=== PATIENT | female | born 1950 | race Caucasian/White ===

== ENCOUNTER 2023-03-24 08:05 | Outpatient (OUT) | payer MEDICARE, BC, SELFPAY ==
--- NOTE | 2023-03-24 08:06 | VEIN_ITS ---
Patient Name: GEOVANNY CORCORAN MR#: [id number] : 1950 Exam Date: 03/24/2023 Ordering Doctor: DR VINNIE CASTRO D.P.M. RADIOLOGY REPORT PROCEDURE: [facility] - OFFICE VISIT INITIAL COMPARISON: None. PROGRESS NOTES: 72-year-old female who presents with a multi decade history of lower extremity pain swelling and varicose veins. The patient complains of bilaterally symmetric pain described as aching heaviness and dullness rated as a 5 on a scale of 1-10. Patient's symptoms are exacerbated by prolonged standing required of her job at [employer]. Patient's symptoms are partially relieved by rest, leg elevation, support stockings and over the counter medication. Patient's symptoms culminated in a venous stasis ulceration of the left leg which has taken approximately 1 year to heal, the patient was referred by Dr. Castro from the wound clinic where she has been treated for the wound. The patient does have symptoms of arterial ischemia with difficulty exercising. The patient has had left leg artherectomy to [place] which was unsuccessful and has had lower extremity arterial bypass surgery recommended. The patient describes a family history significant for type 2 diabetes in her mother. Heart disease in her father. Occasional social alcohol use. The patient has never smoked. No illicit drug use. . Thirteen grandchildren. Past medical history significant for type 2 diabetes, heart disease and hypertension resulting in stage III renal disease and diffuse atherosclerosis. Patient has had an episode of left leg superficial vein thrombosis but could provide no additional details. No history of pulmonary embolus . See separate history and physical for medication list. The patient has worn compression stockings for many years. Nursing notes were reviewed. After history and physical exam I discussed at length the pathophysiology of venous hypertension and possible treatments, therapies and strategies available. We discussed at length the importance of elevating the lower extremities above the level of the heart, increased physical activity and compression stocking use. We discussed alternatives including conservative treatment with bilateral knee or thigh-high compression stockings, surgical interventions including ligation, stripping and phlebectomy. We discussed intravenous laser ablation, micro foam chemical ablation and injection sclerotherapy at length. Risks benefits and alternatives were discussed with the patient's questions were answered. Ultrasound venous reflux study performed the same day was discussed at length with the patient. The report demonstrates moderate to severe bilateral great saphenous vein venous insufficiency with dilatation and saphenofemoral junction reflux. Bilateral incompetent perforating veins. Extensive bilateral incompetent varicose veins. There was superficial thrombus identified in the proximal to mid left great saphenous vein PHYSICAL EXAM: The right leg demonstrates extensive varicose, reticular and spider veins. Hemosiderin staining. Subcutaneous edema. No active ulceration. The left leg demonstrates extensive varicose, reticular and spider veins. Moderate hemosiderin staining. Mild subcutaneous edema. Healing distal left lower leg/ankle venous stasis ulceration and skin thickening. There is an eschar measuring approximately 2 cm in diameter. Both thighs, legs and feet were symmetrically warm to the touch. The patient had poor posterior tibial and dorsalis pedis pulses bilaterally likely related to her significant arterial disease. VEIN/VC Facility NEW Comprehensive IMPRESSION: 1. Bilateral great saphenous vein venous insufficiency with dilatation saphenofemoral junction reflux. Incompetent perforating vein 2. Moderate bilateral lower extremity incompetent varicose veins 3. Mild bilateral lower extremity subcutaneous edema 4. Likely bilateral flow significant arterial disease 5. CEAP: C6, Ep, Asp, Pro PLAN: 1. Endovenous laser ablation right great saphenous vein followed by left great saphenous vein followed by left incompetent perforating vein with associated venous stasis ulceration 2. Micro foam chemical ablation bilateral incompetent varicose veins 3. Injection sclerotherapy bilateral reticular and spider veins 4. Long-term use bilateral knee or thigh-high 20-30 mm compression stockings 5. Elevated legs and increased physical activity for symptomatic relief Nurse notes, history and physical were reviewed and confirmed, see attached forms. The nurse was present throughout the physical exam and consultation Dictated by: Gomez Sher MD on 03/24/2023 at 09:39 Approved by: Gomez Sher MD on 03/24/2023 at 09:46
--- NOTE | 2023-03-24 08:07 | VEIN_ITS ---
Patient Name: GEOVANNY CORCORAN MR#: [id number] : 1950 Exam Date: 03/24/2023 Ordering Doctor: DR VINNIE CASTRO D.P.M. RADIOLOGY REPORT PROCEDURE: VC EXT VENOUS REFLUX SHEILA LMTD COMPARISON: None. INDICATIONS: I83.813 Bilateral painful varicose veins TECHNIQUE: Duplex imaging of the lower extremity to assess the deep and superficial venous system for the presence of deep or superficial venous incompetence and to document the location and severity of disease. The study includes evaluation of the great saphenous vein (GSV), anterior accessory saphenous vein (AASV) and small saphenous vein (SSV). Patient scanned in reverse Trendelenburg and standing. FINDINGS: RIGHT LOWER EXTREMITY: Saphenofemoral Junction Reflux: Yes 6.9mm 3.2 sec GSV: Diam (mm) Reflux/ Time (sec) Proximal Thigh 6.5 Yes 1.8 Mid Thigh 7.9 Yes 4.0 Distal Thigh 7.2 Yes 3.6 Prox Calf 5.3 Yes 4.7 Mid Calf 5.2 Yes 0.8 Saphenopopliteal Junction Reflux: 2.6mm No SSV: Proximal Calf 2.0 N/A Mid Calf 2.9 No AASV: Thrombi: No acute or chronic thrombus visualized Compressibility: Normal Flow: Normal Preforator: Dist/med calf 6.5mm with 1.3s reflux. Prox/med calf 3.0mm with 0.7s reflux. Tech Note: Incompetent GSV. Patent varicose vein prox/med calf 5.7mm with 4.5s reflux. Patent varicose vein mid/med calf 5.9mm with 1.4s reflux. LEFT LOWER EXTREMITY: Saphenofemoral Junction Reflux: Yes 10.6 mm 3.0 sec GSV: Diam (mm) Reflux/Time (sec) Proximal Thigh clot No Mid Thigh clot Distal Thigh 7.2 Yes 2.8 Prox Calf 6.4 Yes 3.0 Mid Calf 4.9 Yes 1.4 Saphenopopliteal Junction Relux: 3.8 mm No SSV: Proximal Calf 2.6 No Mid Calf 3.0 No AASV: Not present Thrombi: Partial thrombus visualized in proximal and mid GSV. Compressibility: Normal Flow: Normal Manager Social Responsibility: Dist/med calf (area of previous wound) 3.1mm with 1.8s reflux. Tech Note: Incompetent GSV. Patent varicose vein mid/med calf 5.6mm with 1.7s reflux. Patent varicose vein prox/med calf 4.7mm with 1.3s reflux. Patent varicose vein dist/med thigh 6.5mm with 0s reflux. CONCLUSION: 1. Severe bilateral great saphenous vein venous insufficiency with saphenofemoral junction reflux and dilatation 2. Superficial vein thrombosis proximal to mid left great saphenous vein 3. Bilateral incompetent perforating veins with associated left calf ulceration 4. Bilateral incompetent varicose veins Dictated by: Gomez Sher MD on 03/24/2023 at 09:03 Approved by: Gomez Sher MD on 03/24/2023 at 09:07
== END 2023-03-24 08:06 | disposition home or self-care (01) ==
PROVIDERS: PCP Podiatrist Foot & Ankle Surgery; Visit Provider Podiatrist Foot & Ankle Surgery
DX: I83.813 Varicose veins of bilateral lower extremities with pain (principal)
CPT/HCPCS: 93970; G0463

== ENCOUNTER 2023-03-31 09:21 | Outpatient (OUT) | payer MEDICARE, BC, SELFPAY ==
--- NOTE | 2023-03-31 09:24 | VEIN_ITS ---
[address] [address] Patient Name: GEOVANNY CORCORAN MRN: [id number] date: 1950 Sex: F Assigned Patient Location: Current Patient Location: Accession/Order Number: [id number] Exam Date: 03/31/2023 09:27 Report Date: 03/31/2023 10:19 At the request of: AILIN JC Procedure: VC Endovenous Ablation 1VeinRT EXAMINATION: VC Endovenous Ablation 1Vein right great saphenous vein HISTORY: I83.813 Bilateral painful varicose veins COMPARISON: No relevant comparison available. TECHNIQUE: The risks and benefits of the procedure had been previously discussed, and were rediscussed at length. Informed written consent was obtained. Zarina Mcmillan and Ottoniel Mariscal assisted. Time out procedure was performed. The right lower extremity was prepared and draped in the usual sterile fashion to allow knee flexion in the sterile field. Duplex ultrasound probe was draped in a sterile cover, sterile transmission gel was used. Venous mapping was performed with the areas of dilation and large tributaries marked. The total length was 35 cm from the entry upper calf to 3 cm below the saphenofemoral junction. The diameter of the greater saphenous vein ranged from 6-8 mm. A 30 gauge needle and 1% buffered lidocaine was used to anesthetize the entry site. A 4 mm incision was made with a scalpel and the saphenous vein was entered percutaneously under direct ultrasound guidance with a micropuncture set, a single stick was successful in gaining access. A micro-guide wire was inserted and the needle removed. A micro-set including a dilator was inserted over the microwire and the needle and dilator were removed. A 0.018 guide wire was inserted through the micro-set and threaded through the saphenous vein to the saphenofemoral junction. The dilator was removed and an introducer sheath was inserted over the wire until the end of the sheath entered the saphenofemoral junction. The dilator and wire were removed and the 600 micron fiber was introduced and placed and positioned so that it extended beyond the sheath and was 3 cm peripheral to the saphenofemoral femoral junction. Final position of the fiber was determined by ultrasound guidance and duplex imaging. Tumescent anesthetic was delivered by ultrasound guidance. 250 cc of fluid was delivered along the entire course of the saphenous vein. The solution consisted of 1000 cc of normal saline with 40 mL of 1% lidocaine and 20 mL of sodium bicarbonate. A final positioning check was made. The energy source was turned on by means of the foot pedal and the fiber and sheath were withdrawn. The total number of Joules delivered was 2060. The laser was active for 258 seconds under continuous pulse, average laser use of 8 J. Laser start time 10:08 AM 03/31/23. Laser stop time 10:12 AM 03/31/23. A duplex ultrasound revealed compressibility and flow at the saphenofemoral junction immediately after the procedure. Hemostasis at the access site was achieved. The skin incision of the saphenous vein was closed with a 4 x 4. A compression stocking was applied. Postop instructions were given. A follow up appointment was recommended and scheduled. The patient tolerated the procedure well and was discharged in good condition . VEIN/VC Endovenous Ablation 1VeinRT IMPRESSION: Technically successful endovenous laser ablation of the right great saphenous vein Electronically authenticated by: AILIN JC Date: 03/31/2023 10:19
--- OUTSIDE RECORDS SUMMARY | 2023-03-31 09:31 | XMS_ITS | CCD ---
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 Fariha Norwood Attending Carolina vailable Jairo, Dr. Fariha Norwood Referring Carolina vailable Christopher Wells Primary Care Unavailable Christopher Wells Primary Care Unavailable Guidry, Dr. Fariha Norwood Attending Carolina vailable Guidry, Dr. Fariha Norwood Referring Carolina vailable Christopher Wells Primary Care Unavailable Guidry, Dr. Fariha Norwood Attending Carolina vailable Jairo, Dr. Fariha Norwood Referring Carolina vailable Miguel Membreno Unavailable DO Christopher Wells Primary Care Provider MD Miguel Membreno Attending Provider Renetta Barahona Unavailable Dr. Christopher Wells Primary Care Unavailable Jairo, Dr. Fariha Norwood Attending Carolina vailable DO Christopher Wells Primary Care Provider MD Miguel Membreno Attending Provider [phone] [facility] [place] Attending Provider Christopher Wells DO Primary Care Provider FARIHA GUIDRY Attending Unavailable CHRISTOPHER WELLS Primary Care Unavailable DO Christopher Wells Primary Care Provider MD Miguel Membreno Attending Provider Christopher Wells Primary Care Unavailable Renetta Barahona Attending Unavailable AdiliatinRenetta torres Admitting Unavailable Kapjanna, Christopher Montenegro Primary Care Unavailable Buehrer, Miguel Admitting Unavailable Buehrer, Miguel Attending Unavailable Buehrer, Miguel Attending Unavailable Buehrer, Miguel Admitting Unavailable Kaple, Christopher A Primary Care Unavailable Buehrer, Miguel Attending Unavailable Buehrer, Miguel Admitting Unavailable Kaple, Christopher Monten[place]ro Primary Care Unavailable Buehrer, Miguel Attending Unavailable Buehrer, Miguel Admitting Unavailable Kaple, Christopher Montenegro Primary Care Unavailable DOLCE, DENTON Gomez Attending Unavailable DOLCE, DENTON Gomez Attending Unavailable KAPLE, Christopher Montenegro Attending Unavailable KAPLE, Christopher Montenegro Attending Unavailable Dolce, Denton Gomez Attending Unavailable Dolce, Denton Gomez Attending Unavailable Dolce, Denton Gomez Attending Unavailable Dolce, Denton Gomez Attending Unavailable Dolce, Denton Gomez Attending Unavailable Dolce, Denton Gomez Attending Unavailable SALAM, Luis Attending Unavailable SALAM, Luis Admitting Unavailable SALAM, Luis Referring Unavailable Dolce, Denton Gomez Attending Unavailable Dolce, Denton Gomez Referring Unavailable Mara Pastor Attending Unavailable TAB Pastor Mara Admitting Unavailabl e Christopher WELLS Referring Unavailable KAPLE, Christopher Montenegor Admitting Unavailable Osmin, Linda A Attending Unavailable Osmin, Linda A Attending Unavailable KAPLE, Christopher Montenegro Referring Unavailable Osmin, Linda A Attending Unavailable Osmin, Linda Monten[place]ro Attending Unavailable Dolce, Denton Gomez Attending Unavailable Dolce, Denton Gomez Admitting Unavailable Osmin, Linda A Admitting Unavailable Osmin, Linda A Attending Unavailable Guidry, Fried Attending Unavailable Guidry, Fried Admitting Unavailable Akkina, Klaus Attending Unavailable Jakekina, Klaus Admitting Unavailable MD Gary Cerda Admitting Unavailable Gary Cerda Attending Unavailable Filley, Catrachito Jason Referring Unavailable Filley, Catrachito Jason Referring Unavailable Filley, Catrachito Gomez Attending Unavailable Filley, Catrachito D Admitting Unavailable KAPLE, Christopher A Attending Unavailable KAPLE, Christopher A Admitting Unavailable KAPLE, Christopher A Referring Unavailable Akkina, Klaus Attending Unavailable Akkina, Klaus Admitting Unavailable Osmin, Linda A Attending Unavailable Linda Solorio Admitting Unavailable MD Gary Cerda Admitting Unavailable Gary Cerda Referring Unavailable Gary Cerda Attending Unavailable DO Nicola Tapia Admitting Unavailmarcelle e Nicola Tapia Referring Unavailable Nicola Tapia Attending Unavailable Catrachito Wolf Referring Unavailable Catrachito Wolf Attending Unavailable Catrachito Wolf Admitting Unavailable Christopher WELLS Attending Unavailable Christopher WELLS Attending Unavailable Christopher WELLS Attending Unavailable Christopher WELLS Attending Unavailable Allergies Allergy Classification Reported Allergen(s) Allergy Type Date of Onset Reaction(s) Facility (20 sources) Doxazosin; Translations: [Cardura] Drug Allergy 023 Unknown (qualifier value), Diarrhea [facility] 250 DO Work Phone: (20 sources) hydroCHLOROthiazide; Translations: [hydroCHLOROthiazide CAPS] Drug Allergy 023 Diarrhea [facility] 250 DO Work Phone: (20 sources) hydroCHLOROthiazide / Spironolactone; Translations: [Aldactazide] Drug Allergy 023 Weal (disorder), Diarrhea [facility] 250 DO Work Phone: (20 sources) Lisinopril; Translations: [Zestril] Drug Allergy 023 Diarrhea (finding), Diarrhea [facility] 250 DO Work Phone: (20 sources) metFORMIN; Translations: [Glucophage] Drug Allergy 023 Diarrhea [facility] 250 DO Work Phone: (20 sources) valsartan; Translations: [Diovan] Drug Allergy 023 Unknown (qualifier value), Diarrhea [facility] 250 DO Work Phone: (20 sources) hydroCHLOROthiazide / Lisinopril; Translations: [hydrochlorothiazide-l isinopril] Drug Allergy Diarrhea (finding) [facility] (20 sources) Terazosin; Translations: [terazosin] Drug Allergy Unknown, Unknown Reaction [facility] (9 sources) metFORMIN Drug Allergy Unknown [facility] Other (7 sources) Doxazosin; Translations: [DOXAZOSIN] Drug Allergy Unknown Reaction [facility] (6 sources) hydroCHLOROthiazide; Translations: [HYDROCHLOROTHIAZIDE] Drug Allergy Unknown Reaction, Diarrhea [facility] (6 sources) Lisinopril; Translations: [LISINOPRIL] Drug Allergy Unknown Reaction [facility] (6 sources) metFORMIN; Translations: [METFORMIN] Drug Allergy Unknown Reaction, Diarrhea [facility] (5 sources) pioglitazone; Translations: [pioglitazone] Drug Allergy Unknown Reaction [facility] (5 sources) Spironolactone; Translations: [spironolactone] Drug Allergy Unknown Reaction, Hives [facility] (6 sources) valsartan; Translations: [VALSARTAN] Drug Allergy Unknown Reaction [facility] (1 source) SPIRONOLACTON-HYDROCHL OROTHIAZ; Translations: [SPIRONOLACTON-HYDROCH LOROTHIAZ] Propensity to adverse reactions to drug (disorder) [address] [place] [address] Repository (1 source) Terazosin Drug Allergy 023 [facility] Repository (1 source) Lisinopril; Translations: [Prinivil] Drug Allergy [facility] Repository Medications Current Medications Medication Drug Class(es) Dates Sig (Normalized) Sig (Original) acetaminophen 325 mg / HYDROcodone bitartrate 5 mg oral tablet (11 sources) Opioid Agonist Start: 04-08-2022 take 1 tablet by mouth every six hours HYDROcodone-Aceta minophen 5-325 MG 1 tablet as needed Orally every 6 hrs for 3 days Mar, Active Start: 04-07-2022 End: 02-18-2023 take 1 tablet by mouth every four hours Hydrocodone-Acetaminophen Discontinued 1 TAB PO Q4H April 07, 2022 February 18, 2023 9:26am amLODIPine 5 mg oral tablet (20 sources) Dihydropyridine Calcium Channel Larisa Start: 05-08-2021 take 1 tablet by mouth once daily amLODIPine 5 mg Tab 5 mg = 1 tab(s), Oral, Daily, # 90 tab(s), Refills(s) 0, High blood pressure Start Date: 09/24/21 Status: Ordered amLODIPine Besyl ate Active Aspir-81 81 MG (9 sources) take 1 tablet by mouth once daily Aspir-81 81 MG 1 tablet Orally Once a day Active aspirin 81 mg oral tablet (20 sources) Platelet Aggregation Inhibitor, Nonsteroidal Anti-inflammatory Drug Start: 05-10-2021 take 81 mg by mouth once daily aspirin 81 mg, Oral, Daily, Refills(s) 0, Prophylaxis Start Date: 05/10/21 Status: Ordered Start: 08-06-2018 take 81 mg by mouth two times weekly Aspirin Active 81 MG PO Twice a Week August 05, 2018 11:00pm Takes on Thursday and take 1 tablet by damon two times weekly aspirin 81 mg EC tablet Take 1 tablet (81 mg) by mouth 2 times a week. 0 Active take 1 tablet by mouth once tangela y Aspirin 81 MG Oral Tablet Delayed Release TAKE 1 TABLET DAILY. Quantity: 90 Refills: 3 Ordered: 30-Jul-2022 Fariha Guidry MD Active atorvastatin 40 mg oral tablet (20 sources) HMG-CoA Reductase Inhibitor Start: 01-05-2023 End: 02-12-2024 atorvastatin 40 mg Tab Refills(s) 0 Start Date: 01/05/23 Status: Ordered Start: 10-28-2021 End: 10-23-2022 take 1 tablet by mouth once daily atorvastatin 40 mg Tab 40 mg = 1 tab(s), Oral, Daily, X 90 day(s), # 90 tab(s), Refills(s) 3, [facility]: [id number], 166, cm, 10/28/21 9:59:00 EDT, Height/Length Dosing, 97.4, kg, 10/28/21 9:59:00 EDT, Weight Dosing Start Date: 10/28/21 Stop Date: 10/23/22 Status: Ordered Start: 04-26-2015 End: 02-12-2023 take 20 mg by mouth once daily in the evening Atorvastatin Active 20 MG PO Every evening August 05, 2018 11:00pm Calcium Carbonate (3 sources) oscal 500 + D Ac tive calcium carbonate 1250 mg / cholecalciferol 0.01 mg oral tablet (12 sources) Vitamin D Start: 2022 take 1 tablet by mouth once daily calcium (as carbonate)-vitamin D 500 mg-400 intl units oral tablet 1 tab(s), Oral, Daily, Refill(s) 0 Start Date: 01/06/23 Status: Ordered chlorthalidone 25 mg oral tablet (20 sources) Thiazide-like Diuretic Start: 2018 take 1 tablet by mouth at bedtime chlorthalidone 25 mg Tab 25 mg = 1 tab(s), Oral, Bedtime, # 90 tab(s), Refills(s) 1, [facility]: [facility] #[id number], 165, cm, 09/10/22 8:16:00 EDT, Height/Length Dosing, 97.4, kg, 09/10/22 8:16:00 EDT, Weight Dosing Start Date: 10/27/22 Status: Ordered cilostazol 50 mg oral tablet (10 sources) Phosphodiesterase 3 Inhibitor Start: 2021 take 1 tablet by mouth twice daily Pletal 50 mg oral tablet 50 mg = 1 tab(s), Oral, BID, # 60 tab(s), Refills(s) 5, Pharmacy: [facility] #[id number], 165, cm, 09/24/21 8:39:00 EDT, Height/Length Dosing, 95.3, kg, 09/24/21 8:39:00 EDT, Weight Dosing Start Date: 10/08/21 Status: Ordered clopidogrel 75 mg oral tablet (1 source) P2Y12 Platelet Inhibitor Start: 2018 take 1 tablet by mouth once daily Plavix 75 mg Tab 75 mg = 1 tab(s), Oral, Daily, # 30 tab(s), Refills(s) 0 Start Date: 10/28/18 Status: Ordered Co Q 10 (9 sources) Co Q 10 Active Co Q-10 (20 sources) Start: 2019 take 1 mg by mouth once daily Co Q-10 mg, Oral, Daily, Refills(s) 0, Prophylaxis Start Date: 01/13/20 Status: Ordered Start: 01-13-2020 take 1 mg by mouth once daily Co Q-10 mg, Oral, Daily, Refills(s) 0 Start Date: 01/13/20 Status: Ordered doxycycline hyclate 100 mg oral capsule (12 sources) Tetracycline-class Drug Start: 12-18-2022 take 1 capsule by mouth twice daily doxycycline hyclate 100 mg Cap 100 mg = 1 cap(s), Oral, BID, # 20 cap(s), Refills(s) 1, [facility]: [facility] #[id number], 165, cm, 12/18/22 8:28:00 EDT, Height/Length Dosing, 98.5, kg, 12/18/22 8:28:00 EDT, Weight Dosing Start Date: 12/18/22 Status: Ordered empagliflozin 25 mg oral tablet (8 sources) Sodium-Glucose Cotransporter 2 Inhibitor take 1 tablet by mouth once daily Jardiance 25 MG take 1 tablet by mouth once daily Oral for 30 Days Active Glucometer (20 sources) Start: 05-10-2021 Glucometer Glucometer, See Instructions, 1 EA, 0, Dx: E11.9 Directions: Test BID, [facility], [place], 166, cm, 05/10/21 8:27:00 EST, Height/Length Dosing, 92.8, kg, 05/10/21 8:27:00 EST, Weight Dosing Start Date: 05/10/21 Status: Ordered 3 ml insulin degludec 100 unt/ml pen injector (20 sources) Insulin Analog Start: 08-22-2022 inject 50 [IU] by subcutaneous injection once daily Tresiba FlexTouch 100 units/mL subcutaneous solution 50 unit(s), SubCutaneous, Daily, Dx E11.65, # 5 EA, Refills(s) 11, [facility]acy: [facility] #[id number], 165, cm, 06/11/22 9:10:00 EDT, Height/Length Dosing, 97.6, kg, 06/11/22 9:10:00 EDT, Weight Dosing Start Date: 08/22/22 Status: Ordered Start: 08-22-2022 inject 30 [IU] by griffin bcutaneous injection twice daily Tresiba FlexTouch 100 units/mL subcutaneous solution 30 unit(s), SubCutaneous, BID, Dx E11.65, # 5 EA, Refills(s) 11, Pharmacy: [facility] #[id number], 165, cm, 06/11/22 9:10:00 EDT, Height/Length Dosing, 97.6, kg, 06/11/22 9:10:00 EDT, Weight Dosing Start Date: 08/22/22 Status: Ordered Start: 09-24-2021 inject 30 [IU] by griffin bcutaneous injection twice daily Tresiba FlexTouch 100 units/mL subcutaneous solution 30 unit(s), SubCutaneous, BID, Dx E11.65, # 5 EA, Refills(s) 11, Pharmacy: [facility] [facility], 165, cm, 09/24/21 8:39:00 EDT, Height/Length Dosing, 95.3, kg, 09/24/21 8:39:00 EDT, Weight Dosing Start Date: 09/24/21 Status: Ordered Start: 05-10-2021 inject 50 [IU] by griffin bcutaneous injection at bedtime Tresiba FlexTouch 100 units/mL subcutaneous solution 50 unit(s), SubCutaneous, Bedtime, Dx E11.65, # 5 EA, Refills(s) 11, Pharmacy: [facility], 166, cm, 05/10/21 8:27:00 EST, Height/Length Dosing, 92.8, kg, 05/10/21 8:27:00 EST, Weight Dosing Start Date: 05/10/21 Status: Ordered Start: 08-06-2018 inject 50 [IU] by griffin bcutaneous injection once daily in the evening Insulin Degludec Active 50 UNIT SUBCUT Every evening August 05, 2018 11:00pm Start: 08-06-2018 inject 40 [IU] by griffin bcutaneous injection once daily in the evening Insulin Degludec Active 40 UNIT SUBCUT Every evening August 06, 2018 12:00am Start: 08-06-2018 inject 40 [IU] by griffin bcutaneous injection once daily in the evening Insulin Degludec Active 40 UNIT SUBCUT Every evening August 05, 2018 11:00pm Start: 08-06-2018 inject 40 [IU] by griffin bcutaneous injection once daily in the evening Insulin Degludec Active 40 UNIT SUBCUT Every evening August 05, 2018 11:00pm Tresiba FlexTouc h 100 UNIT/ML Subcutaneous for 25 Days Active Insulin Degludec 100 UNIT/ML Subcutaneous Solution as directed Quantity: 0 Refills: 0 Ordered: 30-Jul-2022 DO Active Tresiba Active Tresiba SOLN USE DIRECTED Quantity: 0 Refills: 0 Ordered: 08-May-2021 DO Active 3 ml insulin lispro-aabc 100 unt/ml pen injector (20 sources) Insulin Analog Start: 01-05-2023 Lyumjev KwikPe n 100 units/mL injectable solution 10-12-15 units according to meal sizes, Refills(s) 0 Start Date: 01/05/23 Status: Ordered Lyumjev KwikPen 100 UNIT/ML inject 10-12-15 units subcutaneously ACCORDING TO MEAL SIZE PLUS ... (REFER TO PRESCRIPTION NOTES). Subcutaneous for 75 Days Active Lyumjev KwikPen U-100 Insulin 100 unit/mL insulin pen Inject under the skin. 0 Active Lyumjev KwikPen 100 UNIT/ML Subcutaneous Solution Pen-injector USE DIRECTED Quantity: 0 Refills: 0 Ordered: 15-Jan-2022 DO Active Insulin Lispro-Aabc (Lyumjev Kwikpen U-100 Insulin) 100 unit/mL insulin pen (1 source) Start: 02-18-2023 Insulin Lispro-Aabc (Lyumjev Kwikpen U-100 Insulin) 100 unit/mL insulin pen Active SUBCUT February 18, 2023 12:00am losartan potassium 50 mg oral tablet (20 sources) Angiotensin 2 Receptor Larisa Start: 08-06-2018 take 50 mg by mouth once daily in the evening Losartan Active 50 MG PO Every evening August 06, 2018 12:00am Start: 04-26-2015 take 1 tablet by damon th twice daily losartan 50 mg Tab 50 mg = 1 tab(s), Oral, BID, Refills(s) 0, High blood pressure Start Date: 04/26/15 Status: Ordered Lyumjev KwikPen (5 sources) Start: 05-05-2022 Lyumjev KwikPe n Refills(s) 0 Start Date: 05/05/22 Status: Ordered 24 hr metoprolol succinate 50 mg extended release oral tablet (20 sources) beta-Adrenergic Larisa Start: 04-07-2022 Metoprolol Succinate Active MG PO April 07, 2022 1:00am Start: 01-13-2020 take 1 mg by mouth once daily Metoprolol succinate 50 mg ER Tablet mg, Oral, Daily, Refills(s) 0 Start Date: 01/13/20 Status: Ordered Start: 01-13-2020 take 50 mg by mouth once daily Metoprolol Succinate Active 50 MG PO Daily April 07, 2022 12:00am Metoprolol Succi pina Active Multi Vitamins oral tablet (20 sources) Start: 11-05-2017 take 1 tablet by mouth at bedtime Multi Vitamins oral tablet 1 tab(s), Oral, Bedtime, Refill(s) 0, Prophylaxis Start Date: 11/05/17 Status: Ordered Start: 11-05-2017 take 1 tablet by mouth at bedt fátima Multi Vitamins oral tablet 1 tab(s), Oral, Bedtime, Refill(s) 0 Start Date: 11/05/17 Status: Ordered Multivitamin preparation (10 sources) Start: 02-18-2023 take 1 tablet by mouth once daily Multivitamin Active 1 TAB PO Daily February 18, 2023 12:00am Multivitamin Act kana multivitamin tablet (1 source) take 1 tablet by mouth once daily multivitamin tablet Take 1 tablet by mouth once daily. 0 Active nitroglycerin 0.4 mg sublingual tablet (20 sources) Nitrate Vasodilator Start: 8 NitroStat 0.4 mg Tab 0.4 mg = 1 tab(s), SubLingual, q5min, PRN Chest pain, # 25 tab(s), Refills(s) 3 Start Date: 04/11/17 Status: Ordered Nitrostat 0.4 MG Sublingual Active polyethylene glycol 3350 125990 mg / potassium chloride 1480 mg / sodium bicarbonate 5720 mg / sodium chloride 82351 mg powder for oral solution (1 source) Osmotic Laxative Start: 05-05-2022 NuLYTELY Sara ry oral powder for reconstitution See Instructions, 1 EA, Refill(s) 0, Prior to colonoscopy., [facility] #[id number], 165, cm, 05/05/22 13:40:00 EST, Height/Length Dosing, 95.2, kg, 05/05/22 13:40:00 EST, Weight Dosing Start Date: 05/05/22 Status: Ordered Potassimin (9 sources) Potassimin Activ e Psyllium (15 sources) Start: 11-06-2022 Metamucil Oral , Refills(s) 0 Start Date: 11/06/22 Status: Ordered Psyllium Husk (Metamucil) 0.4 gram Capsule (1 source) Start: 02-18-2023 Psyllium Husk (Metamucil) 0.4 gram Capsule Active 0.4 GM PO Daily February 18, 2023 12:00am rivaroxaban 10 mg oral tablet (20 sources) Factor Xa Inhibitor Start: 05-08-2021 End: 01-09-2024 take 1 mg by mouth once daily Xarelto 10 mg oral tablet mg tab(s), Oral, Daily, Refills(s) 0, Blood Thinner Start Date: 05/10/21 Status: Ordered Start: 08-06-2018 take 10 mg by mouth once daily Rivaroxaban Active 10 MG PO Every evening August 05, 2018 11:00pm Has been instructed by [facility] to stop 2 days before heart cath Start: 08-06-2018 take 20 mg by mouth once daily Rivaroxaban Active 20 MG PO Every evening August 06, 2018 12:00am Has been instructed by [facility] to stop 2 days before heart cath Xarelto 10 10mg PO Active Tylenol 8 HR Arthritis Pain (12 sources) Start: 01-06-2023 take 650 mg by mouth every eight hours as needed for pain Tylenol 8 HR Arthritis Pain 650 mg, Oral, q8hr, PRN as needed for pain, Refills(s) 0 Start Date: 01/06/23 Status: Ordered ubidecarenone 100 mg oral capsule (14 sources) Start: 01-19-2023 take 1 capsule by mouth twice daily coenzyme Q-10 100 mg capsule Indications: Mixed hyperlipidemia , Atherosclerosis of [place] coronary artery of [place] heart without angina pectoris TAKE 1 CAPSULE BY MOUTH TWICE A DAY 180 capsule 3 01/19/2023 Active Start: 04-07-2022 End: 02-18-2023 Coenzyme Q10 Discontinued PO Daily April 07, 2022 12:00am February 18, 2023 9:26am Start: 11-12-2021 take 1 capsule by [facility] twice daily CoQ10 100 MG Oral Capsule TAKE 1 CAPSULE BY MOUTH TWICE A DAY Quantity: 180 Refills: 3 Ordered: 12-Nov-2021 Fariha Guidry MD Start : 12-Nov-2021 Active Ubiquinone (1 source) Start: 02-18-2023 take 90 mg by mouth once daily Ubiquinone Active 90 MG PO Daily February 18, 2023 12:00am Completed/Discontinued Medications Medication Drug Class(es) Dates Sig (Normalized) Sig (Original) canagliflozin 300 mg oral tablet (4 sources) Sodium-Glucose Cotransporter 2 Inhibitor Start: 08-06-2018 End: 04-07-2022 take 300 mg by mouth once daily in the evening Canagliflozin Discontinued 300 MG PO Every evening August 05, 2018 11:00pm April 07, 2022 2:00pm Multi Vitamin TABS (1 source) Multi Vitamin TA BS TAKE 1 TABLET DAILY. Quantity: 0 Refills: 0 Ordered: 30-Jul-2022 DO Active nebivolol 5 mg oral tablet (4 sources) Start: 08-06-2018 End: 04-07-2022 take 5 mg by mouth once daily in the evening Nebivolol Discontinued 5 MG PO Every evening August 05, 2018 11:00pm April 07, 2022 1:59pm potassium chloride 10 meq extended release oral capsule (20 sources) Start: 04-17-2021 take 1 capsule by mouth once daily potassium chloride 10 mEq Cap-ER 10 mEq = 1 cap(s), Oral, Daily, # 90 cap(s), Refills(s) 3, [facility]: [facility] #[id number], 165, cm, 05/21/22 12:25:00 EST, Height/Length Dosing, 95.2, kg, 05/21/22 12:25:00 EST, Weight Dosing Start Date: 05/26/22 Status: Ordered Start: 04-17-2021 take 1 capsule by [facility] once daily potassium chloride 10 mEq Cap-ER 10 mEq = 1 cap(s), Oral, Daily, # 90 cap(s), Refills(s) 3, Pharmacy: [facility], 165, cm, 12/10/20 11:57:00 EDT, Height/Length Dosing, 87, kg, 12/10/20 11:57:00 EDT, Weight Dosing Start Date: 04/17/21 Status: Ordered Potassium Chlori de 10 MEQ TBCR TAKE 1 TABLET DAILY. Quantity: 0 Refills: 0 Ordered: 08-May-2021 DO Active SITagliptin 100 mg oral tablet (4 sources) Dipeptidyl Peptidase 4 Inhibitor Start: 08-06-2018 End: 04-07-2022 take 100 mg by mouth once daily in the evening Sitagliptin Phosphate Discontinued 100 MG PO Every evening August 05, 2018 11:00pm April 07, 2022 2:00pm ticagrelor 90 mg oral tablet (4 sources) Start: 08-11-2018 End: 02-18-2023 take 1 tablet by mouth twice daily Ticagrelor (Brilinta) 90 mg tablet Discontinued 90 MG PO Twice daily 180 90 August 10, 2018 11:00pm February 18, 2023 9:26am ubidecarenone 100 mg / vitamin e 5 unt oral capsule (3 sources) Start: 11-12-2021 take 1 capsule by mouth twice daily CoQ10 100 MG Oral Capsule TAKE 1 CAPSULE BY MOUTH TWICE A DAY Quantity: 180 Refills: 3 Ordered: 12-Nov-2021 Fariha Guidry MD Start : 12-Nov-2021 Active take 1 capsule by mouth once holly ly Co Q 10 100 MG Oral Capsule TAKE 1 CAPSULE Daily Quantity: 90 Refills: 3 Ordered: 30-Jul-2022 DO Active Problems Active Problems Problem Classification Problem Date Documented Date Episodic/Chronic Administrative/social admission (1 source) Counseling procedure with explicit context; Translations: [Dietary counseling and surveillance] Episodic Chronic kidney disease (20 sources) Chronic kidney disease stage 3; Translations: [Chronic kidney disease, Stage III (moderate)] Onset: 09-25-19 22 07-12-2020 Chronic Chronic kidney disease (2 sources) Chronic kidney disease; Translations: [Chronic kidney disease, stage 3 unspecified (CMS/HCC)] Onset: 01-10-20 Chronic ulcer of skin (1 source) Chronic ulcer of skin of lower leg; Translations: [Non-pressure chronic ulcer of unspecified part of left lower leg with unspecified severity] Onset: 10-29-19 Chronic Complications of surgical procedures or medical care (20 sources) Postgastric surgery syndrome 09-11-2020 Episodic Conditions associated with dizziness or vertigo (2 sources) Dizziness; Translations: [Dizziness and giddiness] Onset: 09-18-19 Episodic Coronary atherosclerosis and other heart disease (20 sources) Coronary atherosclerosis; Translations: [Coronary atherosclerosis of [place] coronary artery] Onset: 09-18-19 23 09-11-2020 Chronic Coronary atherosclerosis and other heart disease (16 sources) Past history of procedure; Translations: [Percutaneous transluminal coronary angioplasty status] Onset: 01-10-20 23 02-12-2023 Episodic Coronary atherosclerosis and other heart disease (3 sources) Coronary atherosclerosis and other heart disease; Translations: [Atherosclerosis of [place] arteries of left leg with ulceration of calf] Onset: 11-04-19 Diabetes mellitus with complications (3 sources) Type 2 diabetes mellitus with mild nonproliferative diabetic retinopathy without macular edema, bilateral; Translations: [Bilateral mild nonproliferative retinopathy due to diabetes mellitus type 2] Onset: 03-20-19 Chronic Diabetes mellitus without complication (20 sources) Diabetes mellitus; Translations: [Type 2 diabetes mellitus] Onset: 01-27-20 23 08-07-2021 Chronic Comment on above: noted in 08/21/2019 Diabetic Eye Exam. added per outpatient CDI policy. linked DM with hyper cholesterolemia per outpatient CDI policy. linked DM with CKD p er outpatient CDI policy. noted in 08/21/2019 Diabetic Eye Exam. added per outpatient CDI policy. linked DM with hyper cholesterolemia per outpatient CDI policy. linked DM with CKD p er outpatient CDI policy. 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; Translations: [Atherosclerosis of [place] arteries of extremities with gangrene, left leg] Onset: 10-29-19 Chronic Gastrointestinal hemorrhage (20 sources) Gastrointestinal hemorrhage; Translations: [Hemorrhage of rectum and anus] Onset: 06-12-19 23 05-05-2022 Episodic Hemorrhoids (20 sources) Complicated internal hemorrhoid; Translations: [Hemorrhoids] Onset: 06-12-19 23 01-13-2020 Episodic Hypertension with complications and secondary hypertension (13 sources) Hypertensive heart and chronic kidney disease 12-17-2022 Chronic Comment on above: noted in 12/10/2021 Nephrology Consult Note page 3. added per outpatient CDI policy. Immunizations and screening for infectious disease (1 source) Viral screening status; Translations: [Encounter for screening for other viral diseases] Onset: 01-27-20 Episodic Joint disorders and dislocations; trauma-related (15 sources) Acetabular labrum tear 11-06-2022 Chronic Menopausal disorders (15 sources) Primary ovarian failure 11-06-2022 Chronic Osteoarthritis (15 sources) Osteoarthritis of hip 11-06-2022 Chronic Other aftercare (12 sources) Drug therapy finding; Translations: [Long-term (current) use of other medications] Episodic Other aftercare (1 source) Other intermediate frame tender (current) drug therapy; Translations: [Other residential (current) drug therapy] Onset: 09-18-19 Episodic Other aftercare (1 source) Long-term current use of drug therapy; Translations: [Other residential (current) drug therapy] Onset: 01-27-20 Episodic Other aftercare (1 source) Long-term current use of anticoagulant; Translations: [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 of anticoagulants] Onset: 01-27-20 Episodic Other aftercare (2 sources) Long-term current use of insulin; Translations: [long-term (current) use of insulin] Onset: 01-27-20 Episodic Other and unspecified benign neoplasm (20 sources) History of polyp of colon; Translations: [Personal history of colonic polyps] Onset: 09-11-1901-13-2020 Episodic Other and unspecified benign neoplasm (20 sources) Polyp of colon; Translations: [Polyp of colon] Onset: 06-12-1901-13-2020 Episodic Other circulatory disease (1 source) Vascular disorder; Translations: [Unspecified circulatory system disorder] Episodic Other circulatory disease (1 source) Peripheral vascular angioplasty status; Translations: [Peripheral vascular angioplasty status] Onset: 09-18-19 Episodic Other connective tissue disease (15 sources) Enthesopathy of hip region 11-06-2022 Episodic Other connective tissue disease (1 source) Enthesopathy of lower leg and ankle region; Translations: [Other specified enthesopathies of left lower limb, excluding foot] Onset: 03-20-19 Episodic Other diseases of veins and lymphatics (13 sources) Stasis dermatitis and venous ulcer of left lower extremity due to chronic peripheral venous hypertension 12-18-2022 Chronic Comment on above: resolved per 023 Wound Progress Note page 3. Other gastrointestinal disorders (15 sources) Non-infective diarrhea 07-12-2020 Episodic Other gastrointestinal disorders (19 sources) Altered bowel function 05-05-2022 Episodic Other gastrointestinal disorders (19 sources) Diarrhea; Translations: [Diarrhea, unspecified] Onset: 06-12-19 Episodic Other nervous system disorders (1 source) Other acute postprocedural pain Episodic Other nutritional; endocrine; and metabolic disorders (12 sources) Obesity; Translations: [Obesity, unspecified] Chronic Other nutritional; endocrine; and metabolic disorders (20 sources) Body mass index 30+ - obesity 08-10-2020 Chronic Other nutritional; endocrine; and metabolic disorders (14 sources) Morbid obesity; Translations: [Morbid (severe) obesity due to excess calories] Onset: 03-20-1912-17-2022 Chronic Other nutritional; endocrine; and metabolic disorders (2 sources) Obese class II; Translations: [Body mass index (BMI) 37.0-37.9, adult] Onset: 01-27-20 Chronic Peripheral and visceral atherosclerosis (20 sources) Intermittent claudication; Translations: [Peripheral vascular disease] Onset: 10-29-1909-24-2021 Chronic Phlebitis; thrombophlebitis and thromboembolism (20 sources) Deep venous thrombosis; Translations: [Acute venous embolism and thrombosis of unspecified deep vessels of lower extremity] Onset: 01-10-2004-11-2017 Episodic Residual codes; unclassified (18 sources) Sleep apnea; Translations: [Unspecified sleep apnea] Onset: 01-10-2001-06-2023 Chronic Residual codes; unclassified (9 sources) Obstructive sleep apnea syndrome; Translations: [Obstructive sleep apnea (adult) (pediatric)] Chronic Residual codes; unclassified (9 sources) Dependence on enabling machine or device; Translations: [Dependence on other enabling machines and devices] Chronic Residual codes; unclassified (2 sources) Sleep apnea, unspecified; Translations: [Sleep apnea, unspecified] Onset: 01-10-20 Chronic Residual codes; unclassified (3 sources) Other specified postprocedural states Episodic Spondylosis; intervertebral disc disorders; other back problems (13 sources) Prolapsed lumbar intervertebral disc 12-18-2022 Chronic Spondylosis; intervertebral disc disorders; other back problems (13 sources) Spinal stenosis of lumbar region 12-18-2022 Episodic Unclassified (20 sources) Non-smoker 02-24-2020 Unclassified (14 sources) Patient encounter status 11-06-2022 Unclassified (13 sources) Long-term current use of insulin 12-17-2022 Comment on above: Current Medication L ist includes Tresiba. added per outpatient CDI policy. Varicose veins of lower extremity (11 sources) Varicose ulcer of lower extremity; Translations: [Varicose veins of left lower extremity with ulcer of unspecified site] Onset: 10-29-19 Episodic Past or Other Problems Problem Classification Problem Date Documented Da te Episodic/Chronic Other circulatory disease (12 sources) H/O: angina pectoris; Translations: [Personal history of other diseases of circulatory system] Resolved: 05-08-2021 Episodic Unclassified (12 sources) Never smoked tobacco; Translations: [Never a smoker] Unclassified (1 source) Onset: 02-12-2023 02-12-2023 Results Test Name Value Interpretation Reference Range Facil ity Consent for Treatmenton Consent for Treatment [id number]#1.00T IFF Normal [facility] Consultation Noteon 03-23-19 Consultation Note Patient: EVON CORCORAN Age: 72 years Sex: Female : 1950 Associated Diagnoses: None Author: Mara Pastor PA-C Subjective Chief complaint 03/23/2023 8:36 EST left hip pain . Patient is a 72-year-old female. She presents today for follow-up after undergoing a left intra-articular hip injection. This was done on 03/04/2023 and has given her 99% relief. She is feeling well. She is doing well. She is comfortable. She is happy. She does not have any pain. She does not have any complaints patient not have any concerns. At this time, she does not feel that she requires anything from our services. Health Status Allergies: Allergic Reactions (Selected) Severity Not Documented Aldactazide- Hives. Cardura- Unknown. Diovan- Unknown. Glucophage- No reactions were documented. Hydrochlorothiazide-lis inopril- Diarrhea. Hytrin- No reactions were documented. Prinivil- No reactions were documented. Zestril- Diarrhea., Allergies (8) Active Reaction Aldactazide Hives Cardura Unknown Diovan Unknown Glucophage None Documented hydrochlorothiazide-lis inopril Diarrhea Hytrin None Documented Prinivil None Documented Zestril Diarrhea Current medications: (Selected) Prescriptions Prescribed Glucometer: Glucometer, See Instructions, 1 EA, 0, Dx: E11.9 Directions: Test BID, [facility], Supply, 166, cm, 05/10/21 8:27:00 EST, Height/Length Dosing, 92.8, kg, 05/10/21 8:27:00 EST, Weight Dosing Lancets: Lancets, See Instructions, 100 EA, 11, Dx: E11.9 Directions: BID, [facility], Supply, 166, cm, 05/10/21 8:27:00 EST, Height/Length Dosing, 92.8, kg, 05/10/21 8:27:00 EST, Weight Dosing Test strips: Test strips, See Instructions, 100 EA, 11, Dx: E11.9 Directions: BID, [facility] #[id number], Supply, 165, cm, 06/11/22 9:10:00 EDT, Height/Length Dosing, 97.6, kg, 06/11/22 9:10:00 EDT, Weight Dosing Tresiba FlexTouch 100 units/mL subcutaneous solution: 50 unit(s), SubCutaneous, Daily, Dx E11.65, # 5 EA, Refills(s) 11, Pharmacy: [facility] #[id number], 165, cm, 06/11/22 9:10:00 EDT, Height/Length Dosing, 97.6, kg, 06/11/22 9:10:00 EDT, Weight Dosing chlorthalidone 25 mg Tab: 25 mg = 1 tab(s), Oral, Bedtime, # 90 tab(s), Refills(s) 1, Pharmacy: [facility] #[id number], 165, cm, 09/10/22 8:16:00 EDT, Height/Length Dosing, 97.4, kg, 09/10/22 8:16:00 EDT, Weight Dosing potassium chloride 10 mEq Cap-ER: 10 mEq = 1 cap(s), Oral, Daily, # 90 cap(s), Refills(s) 3, Pharmacy: [facility] #[id number], 165, cm, 05/21/22 12:25:00 EST, Height/Length Dosing, 95.2, kg, 05/21/22 12:25:00 EST, Weight Dosing Documented Medications Documented Co Q-10: mg, Oral, Daily, Refills(s) 0, Prophylaxis Lyumjev KwikPen 100 units/mL injectable solution: 10-12-15 units according to meal sizes, Refills(s) 0 Metamucil: Oral, Refills(s) 0 Metoprolol succinate 50 mg ER Tablet: mg, Oral, Daily, Refills(s) 0 Multi Vitamins oral tablet: 1 tab(s), Oral, Bedtime, Refill(s) 0, Prophylaxis NitroStat 0.4 mg Tab: 0.4 mg = 1 tab(s), SubLingual, q5min, PRN Chest pain, # 25 tab(s), Refills(s) 3 Tylenol 8 HR Arthritis Pain: 650 mg, Oral, q8hr, PRN as needed for pain, Refills(s) 0 Xarelto 10 mg oral tablet: mg tab(s), Oral, Daily, Refills(s) 0, Blood Thinner amLODIPine 5 mg Tab: 5 mg = 1 tab(s), Oral, Daily, # 90 tab(s), Refills(s) 0, High blood pressure aspirin: 81 mg, Oral, Daily, Refills(s) 0, Prophylaxis atorvastatin 40 mg Tab: Refills(s) 0 calcium (as carbonate)-vitamin D 500 mg-400 intl units oral tablet: 1 tab(s), Oral, Daily, Refill(s) 0 losartan 50 mg Tab: 50 mg = 1 tab(s), Oral, BID, Refills(s) 0, High blood pressure Problem list: All Problems HTN - Hypertension / SNOMED CT 9844647679 / Confirmed Familial hypercholesteremia / SNOMED CT 8178395386 / Confirmed Non-smoker / SNOMED CT 48855571 / Confirmed CAD in [place] artery / SNOMED CT 01400648 / Confirmed History of DVT in adulthood / SNOMED CT 5362706477 / Confirmed Type 2 diabetes mellitus with hypercholesterolemia / SNOMED CT 053114236 / Confirmed linked DM with hypercholesterolemia per outpatient CDI policy. Type 2 diabetes mellitus with stage 3 chronic kidney disease / SNOMED CT 442527310 / Confirmed linked DM with CKD per outpatient CDI policy. Mild nonproliferative diabetic retinopathy of both eyes / SNOMED CT 986073724 / Confirmed noted in 08/21/2019 Diabetic Eye Exam. added per outpatient CDI policy. 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 Normal [facility] Comment on above: Result Comment: Elec tronically Signed By: Dawit BARTH, Mara\.br\Date and Time Signed: 03/23/23 09:07 EST Legal Correspondence Officeo n 03-23-2023 Legal Correspondence Office [id number]#1.00 TIFF Normal [facility] Office/Clinic Note-Physician on 03-23-2023 Office/Clinic Note-Physician [id number]#1.00 TIFF Normal [facility] Patient Correspondenceon Patient Correspondence [id number]#1.00 TIFF Normal [facility] Patient Correspondence [id number]#1.00 TIFF Normal [facility] Patient Correspondence [id number]#1.00 TIFF Normal [facility] Patient Correspondence [id number]#1.00 TIFF Normal [facility] Patient History Officeon Patient History Office [id number]#1.00 TIFF [facility] Family Medicine Office/Clini c Noteon 03-20-2023 Family Medicine Office/Clinic Note Chief Complaint Patient here for 3 month f/u on htn, dm, chol, cad, ckd History of Present Illness Patient is here for follow-up on Diabetes. How often are you checking your blood sugars? _q day What are your average readings? _80-200 before injection steroid into hip: 100-500 Do you have low blood sugar readings/symptoms? _No Do you have high blood sugar readings/symptoms? No_ Are you compliant with your diet? For the most part _ Do you exercise? Yes Are you compliant with your medications or having difficulty affording your medications? yes and no issues Do you have any of the following symptoms? Vision problems? No Sexual dysfunction? No GI-Nausea/committing/bl oating? No Lightheadedness? No Paresthesias, Ulcerations or sores? No Here for follow up Have you had any ER visits or any hospitalizations since last visit? no Are you compliant with your medications and no difficulty affording your medications? yes Do you have side effects from the medication? no Are you compliant with your diet? yes Do you exercise? yes Do you have any of the following symptoms? Chest pain? no Palpitations? no DAILEY/SOB? no Orthopnea? no PND? no Edema? no Have you had any recent cardiopulmonary testing? no sugars higher with injection of steroid in hip Review of Systems PHQ Score Initial Depression Screen Score: 0 SCORE ROS - Provider Constitutional: no fever, no chills, no sweats, no weakness. Skin: no Jaundice, no rash, no lesions, no petechiae. ENMT: no ear pain, no sore throat, no congestion, no hoarseness. Respiratory: no shortness of breath, no cough, no orthopnea, no wheezing. Cardiovascular: no chest pain, no palpitations, no edema. Gastrointestinal: no nausea, no vomiting, no diarrhea, no GI bleeding.no constipationnoheartburn Genitourinary: no dysuria, no hematuria, no discharge, no pain.nofreq/urgency Musculoskeletal: no back pain, no trauma.nojoint pain Neurologic: no headache, no dizziness, no numbness, no weakness. Psychiatric: no sleeping problems, no irritability, no mood swings/depression. Heme/Lymph: no bleeding tendency, no bruising tendency, no petechiae, no swollen lymph nodes no Allergy/Imunology no seasonal allergies, no food allergies, no recurrent infections, no impaired immunity. Additional ROS info: Except as noted in the above Review of Systems and in the History of Present Illness all other systems have been reviewed and are negative or noncontributory. Physical Exam Vitals & Measurements T: 36.9 ?C(Oral) HR: 70(Peripheral) RR: 16 BP: 132/80 SpO2: 99% HT: 65 in HT: 165 cm WT: 97.6 kg WT: 214.72 lb BMI: 35.85 General: Well developed, well nourished, in no acute distress Mouth: Mucous membranes moist. Normal oropharynx, and posterior pharynx without lesions or exudates. Tongue normal Neck: Neck supple. No masses or palpable cervical nodes. Trachea midline. Thyroid without nodules, masses, tenderness, or enlargement Lungs: Normal respiratory effort and clear to auscultation Cardio: Regular rate and rhythm, normal S1 and S2, no murmur, no rub Abdomen: Soft, non-distended, non-tender. no G/R/S/Masses Musculoskeletal: No deformity or scoliosis noted. Normal range of motion. Joints normal. No erythema, edema, effusion, or ecchymosis Extremity: No clubbing, cyanosis, edema, or deformity, with normal ROM in both upper and lower bilateral extremities Neurologic: Grossly normal Skin: No rashes, ulcerations, or suspicious lesions Mental Status: Alert and oriented x3. Normal mood and affect Assessment/Plan 1. Claudication of both lower extremities (I73.9: Peripheral vascular disease, unspecified) Dr Collins following, 06/06 FU re: potential procedure: Clinically currently asymptomatic and ond-qsua-ccjklahbxag. Please see Dr. Castro's consultation 2. BMI 35.0-35.9,adult (Z68.35: Body mass index [BMI] 35.0-35.9, adult) The standard range for ages 18 and older is >=18.5 and < 25 kg/m2. Your BMI today was above this range, this falls in the overweight to obese category and there are medical benefits to weight loss. We can offer counselling, referral, and/or medical support in addressing this problem. Your BMI and weight management will be followed at subsequent visits. 3. Morbid obesity (E66.01: Morbid (severe) obesity due to excess calories) diet and exercise. 4. Long-term insulin use (Z79.4: long-term (current) use of insulin) Dr Benz following. 5. Mild nonproliferative diabetic retinopathy of both eyes (E11.3293: Type 2 diabetes mellitus with mild nonproliferative diabetic retinopathy without macular edema, bilateral) Follow-up with development officer 6. Type 2 diabetes mellitus with hypercholesterolemia (E11.69: Type 2 diabetes mellitus with other specified complication) Tresiba 50 units SQ every morning with sliding scale per med rec per Dr. Salter. Continue losartan: Sugars improved, surveillance A1c's per Dr. Ruggiero 7. Type 2 diabetes mellitus with stage (more content not included)... Normal [facility] Comment on above: Result Comment: Elec tronically Signed By: LIBAN SALGADO, Christopher Montenegro\.br\Date and Time Signed: 03/20/23 09:40 EST Patient Educationon 03-20-19 Patient Education Endocrinology Diabetes Mellitus and Exercise Exercising regularly is important for overall health, especially for people who have diabetes mellitus. Exercising is not only about losing weight. It has many other health benefits, such as increasing muscle strength and bone density and reducing body fat and stress. This leads to improved fitness, flexibility, and endurance, all of which result in better overall health. What are the benefits of exercise if I have diabetes? Exercise has many benefits for people with diabetes. They include: ? Helping to lower and control blood sugar (glucose). ? Helping the body to respond better to the hormone insulin by improving insulin sensitivity. ? Reducing how much insulin the body needs. ? Lowering the risk for heart disease by: ? Lowering bad cholesterol and triglyceride levels. ? Increasing good cholesterol levels. ? Lowering blood pressure. ? Lowering blood glucose levels. What is my activity plan? Your health care provider or certified low vision therapist can help you make a plan for the type and frequency of exercise that works for you. This is called your activity plan. Be sure to: ? Get at least 150 minutes of medium-intensity or high-intensity exercise each week. Exercises may include brisk walking, biking, or water aerobics. ? Do stretching and strengthening exercises, such as yoga or weight lifting, at least 2 times a week. ? Spread out your activity over at least 3 days of the week. ? Get some form of physical activity each day. ? Do not go more than 2 days in a row without some kind of physical activity. ? Avoid being inactive for more than 90 minutes at a time. Take frequent breaks to walk or stretch. ? Choose exercises or activities that you enjoy. Set realistic goals. ? Start slowly and gradually increase your exercise intensity over time. How do I manage my diabetes during exercise? Monitor your blood glucose ? Check your blood glucose before and after exercising. If your blood glucose is: ? 240 mg/dL (13.3 mmol/L) or higher before you exercise, check your urine for ketones. These are chemicals created by the liver. If you have ketones in your urine, do not exercise until your blood glucose returns to normal. ? 100 mg/dL (5.6 mmol/L) or lower, eat a snack containing 15?20 grams of carbohydrate. Check your blood glucose 15 minutes after the snack to make sure that your glucose level is above 100 mg/dL (5.6 mmol/L) before you start your exercise. ? Know the symptoms of low blood glucose (hypoglycemia) and how to treat it. Your risk for hypoglycemia increases during and after exercise. Follow these tips and your health care provider's instructions ? Keep a carbohydrate snack that is fast-acting for use before, during, and after exercise to help prevent or treat hypoglycemia. ? Avoid injecting insulin into areas of the body that are going to be exercised. For example, avoid injecting insulin into: ? Your arms, when you are about to play tennis. ? Your legs, when you are about to go jogging. ? Keep records of your exercise habits. Doing this can help you and your health care provider adjust your diabetes management plan as needed. Write down: ? Food that you eat before and after you exercise. ? Blood glucose levels before and after you exercise. ? The type and amount of exercise you have done. ? Work with your health care provider when you start a new exercise or activity. He or she may need to: ? Make sure that the activity is safe for you. ? Adjust your insulin, other medicines, and food that you eat. ? Drink plenty of water while you exercise. This prevents loss of water (dehydration) and problems caused by a lot of heat in the body (heat stroke). Where to find more information ? [place] [employer]: www.diabetes.org Summary ? Exercising regularly is important for overall health, especially for people who have diabetes mellitus. ? Exercising has many health benefits. It increases muscle strength and bone density and reduces body fat and stress. It also lowers and controls blood glucose. ? Your health care provider or certified low vision therapist can help you make an activity plan for the type and frequency of exercise that works for you. ? Work with your health care provider to make sure any new activity is safe for you. Also work with your health care provider to adjust your insulin, other medicines, and the food you eat. This information is not intended to replace advice given to you by your health care provider. Make sure you discuss any questions you have with your health care provider. Document Revised: 11/28/2019 Document Reviewed: 11/28/2019 [employer] Patient Education ? 2022 [employer]. Normal [facility] Nursing Note - Woundon 03-19 Nursing Note - Wound [id number]#2.[address] [facility] Consultation Noteon 03-07-20 23 Consultation Note [id number] IFF [facility] CHEMISTRYOrdered By: Lab ROP User on 03-04-2023 Glucose [Mass/Vol] 78 mg/dL Normal 55 - 99 mg/dL FT C POC Subsection POC Device SN [id number] Invalid Interpretation Code [facility] P[facility] Subsection POC Username MACIE POTTS Invalid Interpretation Code [facility] Subsection Sodium [Moles/Vol] [id number] mmol/L Invalid Interpretation Code [facility] Subsection Capillary Glucose POCon 02-14 Glucose [Mass/Vol] 78 mg/dL Normal 55-99 [facility] Comment on above: Performed By: #### 2 [id number] #### [facility] [address] [place] [address] Consent for Procedure/Surger yon 03-04-2023 Consent for Procedure/Surgery [id number]#1.00 TIFF Normal [facility] Consent for Treatmenton 02-14 Consent for Treatment [id number]#1.00T IFF Normal [facility] Discharge Instructionson Discharge Instructions [id number] TIFF [facility] [facility] Insurance Correspondenceon 05-05-2022 Insurance Correspondence [id number]#1.00 TIFF Normal [facility] IntraOperative Documentson 05-05-2022 IntraOperative Documents [id number]#1.[address] [facility] Main OR Intraoperative Recor don 03-04-2023 Main OR Intraoperative Record IntraOp Document Type FTPM Summary Primary Physician: Nicola Tapia DO Finalized Date/Time: 03/04/23 09:06:01 Pt. Name: NILOEVON/Sex: 1950 Female Med Rec #: [id number] Physician: Nicola Tapia DO Financial #: [id number] Pt. 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 - Primary Time In 03/04/23 09:01:00 03/04/23 09:01:00 03/04/23 09:01:00 Time Out 03/04/23 09:06:00 03/04/23 09:06:00 03/04/23 09:06:00 Procedure HIP INJECTION(Left) HIP INJECTION(Left) HIP INJECTION(Left) Comments Last Modified By: Estrellita Maria RN, RN, Estrellita Ryder RN 03/04/23 09:05:56 03/04/23 09:05:56 03/04/23 09:05:56 Entry 4 Case Attendee Ervin Mckeon Role Performed Video Editing Intern Time In 03/04/23 09:01:00 Time Out 03/04/23 09:06:00 Procedure HIP INJECTION(Left) Comments Last Modified By: Estrellita Maria RN 03/04/23 09:05:56 Perioperative Protocols FTPM Pre-Care Text: Implements protective measures prior to operative or invasive procedure, confirms identity before the operative or invasive procedure, verifies operative procedure, surgical site, and laterality Entry 1 Procedure(s) HIP INJECTION(Left) Patient Identity Birthday, ID Band Verified (select at Check, Patient least 2): Participation Consents / H and P HandP, Surgery/Procedure Operative Site Present Verified Consent Marking Verified Surgical Site Yes Laterality Verified Yes Verified Procedure Verified Yes Correct Patient Yes Position Verified Availability Equipment, Medication, Prep Dry Yes Verified (If X-ray Applicable) PreOp Antibiotic No Time Out Crow ECHAVARRIA, Estrellita Thompson, Madison Armstrong RN, Willie Padgett DO, Bradford A., Hargrove, Bryce Time Out Complete 03/04/23 09:01:00 Outcomes Met? Yes Last Modified By: Estrellita Maria RN 03/04/23 09:01:43 Post-Care Text: The patient is free from signs and symptoms of injury caused by extraneous objects Allergy Information FTPM Pre-Care Text: Verifies allergies Entry 1 Allergies Reviewed? Yes Allergies Reviewed Self/Patient With Outcomes Met? Yes Last Modified By: Estrellita Maria RN 03/04/23 09:01:51 Post-Care Text: The patient received appropriate medication(s) safely administered during the perioperative period Surgical Procedures FTPM Entry 1 Procedure Description Procedure HIP INJECTION Modifiers Left Surgeon Description HIP INJ W/ FLUORO Primary Procedure Yes Primary Surgeon Nicola Tapia DO Start 03/04/23 09:04:00 Stop 03/04/23 09:05:00 Anesthesia Type None Surgical Service Pain Management Wound Class 1 - Clean Last Modified By: Estrellita Maria RN 03/04/23 09:05:58 General Case Data FTPM Pre-Care Text: Classifies surgical wound, implements aseptic technique, initiates traffic control Entry 1 Case Information OR Pain Proc Room Case Level Level 2 Wound Class 1 - Clean Specialty Pain Management Preop Diagnosis M16.12 Postop Same As Preop Yes Postop Diagnosis M16.12 Outcomes Met? Yes Last Modified By: Estrellita Maria RN 03/04/23 09:02:00 Post-Care Text: The patient is free from signs and symptoms of infection Skin Assessment (Pre Procedure) FTPM Pre-Care Text: Implements protective measures to prevent skin/ tissue injury due to thermal or mechanical sources Evaluates for signs and symptoms of physical injury to skin and tissue Entry 1 Skin Integrity Intact, [place], Warm, and Skin Abnormality No Dry Outcomes Met? Yes Last Modified By: Estrellita Maria RN 03/04/23 09:02:36 Post-Care Text: The patient is free from signs and symptoms of injury caused by extraneous objects Patient Positioning FTPM Pre-Care Text: Identifies physical alterations that require additional precautions for procedure-specific positioning, verifies presence of prosthetics or corrective devices, positions the patient, evaluates the patient for signs and symptoms of injury as a result of positioning Entry 1 Procedure HIP INJECTION(Left) Body Position Prone Feet Uncrossed? Yes Left Arm Position Resting at Side Right Arm Position Resting at Side Left Leg Position Extended Right Leg Position Extended Positioning Device Pillow Under Head Large, Safety Strap, Pillow Large Under Knees Press Points Checked Yes By Estrellita Maria RN Outcomes Met? Yes Last Modified By: Estrellita Maria RN 03/04/23 09:02:42 Post-Care Text: The patient is free from signs and symptoms of injury related (more content not included)... Normal [facility] Main OR Preoperative Recordo n 03-04-2023 Main OR Preoperative Record Holding Area Document Type FTPM Summary Primary Physician: Nicola Tapia DO Finalized Date/Time: 03/04/23 08:19:34 Pt. Name: EVON CORCORAN/Sex: 1950 Female Med Rec #: [id number] Physician: Nicola Tapia DO Financial #: [id number] Pt. Type: P Room/Bed: / Admit/Disch: 03/04/23 07:48:24 - Institution: Case Times Holding FTPM Pre-Care Text: Verifies consent for planned procedure, identifies individual values and wishes concerning care, includes family members in perioperative teaching Secures patient's records' belongings, and valuables, maintains patient's dignity and privacy, and maintains patient confidentiality Entry 1 In Holding 03/04/23 08:17:00 Outcomes Met? Yes Last Modified By: Macie Potts RN 03/04/23 08:18:01 Post-Care Text: The patient participates in decisions affecting his or her perioperative plan of care The patient's right to privacy is maintained Surgery Checklist FTPM Entry 1 Patient Birthday, ID Band Procedure History and Physical, Identification: Check, Patient Verification: Surgical Consent, With Participation Patient NPO after Midnight: n/a Date/Time: 03/04/23 08:18:00 Results Reviewed brenda Personal Items: Dentures, Glasses, Comments: crackers Jewelry Personal Items apple watch and wedding Complaints of Pain: Yes Comment: band Pain Comment: 10/23 to left hip Operative Site Yes Marking: Marked By: operative site marked Location: Left hip by Dr. Tapia Availability X-Ray Verified: Does Patient Smoke No Patient states Yes Comment - Adult Antonio-spouse postop adult Supervision supervision available Case Cancelled in No Holding Area see comments below for reason Last Modified By: Macie Potts RN 03/04/23 08:19:29 Finalized By: Macie Potts RN Document Signatures Signed By: Macie Potts RN 03/04/23 08:[address] [facility] Consent for Treatmenton 02-13 Consent for Treatment [id number]#1.00T IFF Normal [facility] Multi-Wound Charton 03-03-20 Multi-Wound Chart [id number]#1.00 TIFF Normal [facility] Nursing Assessment - Woundon 12-19-2023 Nursing Assessment - Wound [id number]#1.[address] [facility] Physician Orderon 03-03-2023 Physician Order [id number]#1.[address] [facility] Progress Note - Woundon 02-13 Progress Note - Wound [id number]#1.[address] [facility] Correspondence - Woundon Correspondence - Wound [id number]#1.[address] [facility] Consent for Procedure/Surger yon 02-24-2023 Consent for Procedure/Surgery [id number]#1.[address] [facility] Consent for Treatmenton 02-13 Consent for Treatment [id number]#1.00T IFF [facility] Multi-Wound Charton 02-25-20 Multi-Wound Chart [id number]#1.[address] [facility] Nursing Assessment - Woundon 02-24-2023 Nursing Assessment - Wound [id number]#1.[address] [facility] Nursing Note - Woundon 02-24 Nursing Note - Wound [id number]#1.[address] [facility] Physician Orderon 02-24-2023 Physician Order [id number]#1.[address] [facility] Procedure - Woundon 02-25-20 Procedure - Wound [id number]#1.[address] [facility] Progress Note - Woundon 02-13 Progress Note - Wound [id number]#1.00 TIFF Normal [facility] Retail - Clinical Noteon Retail - Clinical Note [id number]#1.00T IFF Normal [facility] US venous mapping BI loweron 02-19-2023 US venous mapping BI [facility] [place] [address] Ultrasound Report Signed Patient: Evon Corcoran MR#: [id number] : 1950 Acct:[id number] Age/Sex: 72 / F ADM Date: 02/18/23 Loc: Room: Type: [facility] Attending Dr: Miguel Membreno MD Ordering Provider: Miguel Membreno MD Date of Service: 02/18/23 US/US venous mapping BI lower: pad w need for bypass Copies to: Miguel Membreno MD Bilateral lower extremity vein mapping examination Indication for study: Peripheral vascular disease with need for bypass PROCEDURE: Color-flow duplex scanning is used to interrogate the superficial venous anatomy of both lower extremities. In the right leg there is a 5 to 6 mm diameter greater saphenous vein but in the mid segment there is some thrombus. There is also some intraluminal shadowing suggestive of prior thrombophlebitis. Lesser saphenous vein is not usable in the right leg. In the patient's left leg the entire length the greater saphenous vein is diseased with some thrombophlebitis and occlusion. Lesser saphenous vein is also not a good conduit. US/US venous mapping BI lower IMPRESSION: This patient does not have good conduit in either lower extremity for autologous bypass Impression dictated by: Miguel Membreno M.D.02/19/2023 1:30 PM [facility] Tech: Isabell Duarte Transcribed By: RICH 02/19/23 1330 Dictated By: Miguel Membreno MD 02/19/23 1327 Signed By: 02/19/23 1330 [facility] Blood Urea Nitrogenon 2022 Urea nitrogen [Mass/Vol] 25 mg/dL Normal 7-25 [facility] Comment on above: Performed By: #### C REAT, BUN #### [facility] [address] Creatinineon 02-18-2023 Creatinine [Mass/Vol] 1.18 mg/dL Normal 0.60-1.20 [facility] Comment on above: Performed By: #### C REAT, BUN #### [facility] [address] [place] [address] [place] Creatinine Clr Calc Pharmacy 49.07 [facility] Comment on above: Result Comment: PERF ORMED BY: [place] [address] PATHOLOGIST WILLOW WORKER AIRAM ROMEO M.D. Performed By: #### C REMAY BUN #### [facility] [address] [place] [address] GFR/1.73 sq M.predicted MDRD (S/P/Bld) [Vol rate/Area] 48.770 mL/min/{1.73_m2} Normal [facility] Comment on above: Performed By: #### C REMAY, BUN #### [facility] [address] [place] [address] Creatinine [Mass/volume] in Serum or PlasmaOrdered By: Miguel Membreno on 02-18-2023 Creatinine [Mass/Vol] 1.18 mg/dL 0.60-1.20 [facility] Lab Reportson 02-18-2023 Lab Reports [id number]#1.00T IFF Normal [facility] No Panel InformationOrdered By: Miguel Membreno on 02-18-2023 Estimated GFR (CKD-EPI) 48.770 mL/Min [facility] Creatinine Clearance (Chem 49.07 [facility] Operative Reporton Operative Report [id number]#1.00T IFF Normal [facility] Retail - Clinical Noteon Retail - Clinical Note [id number]#1.00T IFF Normal [facility] Retail - Clinical Note [id number]#1.00T IFF [facility] Urea nitrogen [Mass/volume] in Serum or PlasmaOrdered By: Miguel Membreno on 02-18-2023 Urea nitrogen [Mass/Vol] 25 mg/dL 10-07 [facility] Insurance Correspondenceon 1 04-20-2022 Insurance Correspondence [id number]#1.[address] [facility] Physician Orderon 02-17-2023 Physician Order [id number]#1.00 [facility] CHEMISTRYOrdered By: Lab ROP User on 02-16-2023 Glucose [Mass/Vol] 311 mg/dL High 55 - 99 mg/dL [facility] POC Subsection POC Device SN [id number] 1 Invalid Interpretation Code [facility] POC Subsection POC Username RONI CHOWDHURY Invalid Interpretation Code [facility] POC Subsection Sodium [Moles/Vol] [id number] mmol/L Invalid Interpretation Code [facility] POC Subsection Capillary Glucose POCon Glucose [Mass/Vol] 311 mg/dL High 55-99 [facility] Comment on above: Performed By: #### 2 [id number] #### [facility] Laboratory [address] [place] [address] Consent for Treatmenton Consent for Treatment [id number]#1.00T IFF [facility] Consent for Treatment [id number]#1.00T IFF [facility] Main OR Preoperative Recordo n 02-16-2023 Main OR Preoperative Record Holding Area Document Type FT Summary Primary Physician: Gary Cerda MD Finalized Date/Time: 02/16/23 13:36:16 Pt. Name: EVON CORCORAN /Sex: 1950 Female Med Rec #: [id number] Physician: Gary Cerda MD Financial #: [id number] Pt. Type: P Room/Bed: / Admit/Disch: 02/16/23 13:08:33 - Institution: Case Times Holding FTPM Pre-Care Text: Verifies consent for planned procedure, identifies individual values and wishes concerning care, includes family members in perioperative teaching Secures patient's records' belongings, and valuables, maintains patient's dignity and privacy, and maintains patient confidentiality Entry 1 In Holding 02/16/23 13:16:00 Outcomes Met? Yes Last Modified By: Bertha Chowdhury RN 02/16/23 13:16:59 Post-Care Text: The patient participates in decisions affecting his or her perioperative plan of care The patient's right to privacy is maintained Surgery Checklist FTPM Entry 1 Patient Birthday, ID Band Procedure History and Physical, Identification: Check, Patient Verification: Surgical Consent, With Participation Patient NPO after Midnight: No Date/Time: 02/16/23 13:17:00 Results Reviewed 0730 [employer]ie [employer] Personal Items: Dentures, Glasses, Comments: Jewelry Personal Items Pt. wearing one ring, a Complaints of Pain: Yes Comment: watch, glasses and upper dentures. Pain Comment: 10/23 left hip pain Operative Site Yes Marking: Marked By: Dr. Cerda Location: left hip Availability Equipment, X-Ray Verified: Does Patient Smoke No Patient states Yes Comment - Adult -Antonio postop adult Supervision supervision available Case Cancelled in No Case Cancelled Case cancelled due to Holding Area see Comment blood sugar of 311 comments below for reason Last Modified By: Bertha Chowdhury RN 02/16/23 13:36:15 Finalized By: Bertha Chowdhury RN Document Signatures Signed By: Bertha Chowdhury RN 02/16/23 13:19 Bertha Chowdhury RN 02/16/23 13:36 Normal [facility] Multi-Wound Charton 02-17-20 Multi-Wound Chart [id number]#1.00 TIFF Normal [facility] Nursing Assessment - Woundon 02-16-2023 Nursing Assessment - Wound [id number]#1.00 TIFF Normal [facility] Nursing Note - Woundon 02-16 Nursing Note - Wound [id number]#1.00 TIFF Normal [facility] Patient Correspondenceon Patient Correspondence [id number]#1.00T IFF [facility] Consent for Procedure/Surger yon 02-10-2023 Consent for Procedure/Surgery [id number]#1.[address] [facility] Consent for Treatmenton 01-15 Consent for Treatment [id number]#1.00T IFF [facility] Multi-Wound Charton 02-11-20 Multi-Wound Chart [id number]#1.[address] [facility] Nursing Assessment - Woundon 02-10-2023 Nursing Assessment - Wound [id number]#1.[address] [facility] Nursing Note - Woundon 02-10 Nursing Note - Wound [id number]#1.00 TIFF Normal [facility] Physician Orderon 02-10-2023 Physician Order [id number]#1.[address] [facility] Procedure - Woundon 02-11-20 Procedure - Wound [id number]#1.[address] [facility] Progress Note - Woundon 01-15 Progress Note - Wound [id number]#1.[address] [facility] Insurance Correspondenceon 04-05-2022 Insurance Correspondence [id number]#1.[address] [facility] Insurance Correspondenceon 04-04-2022 Insurance Correspondence [id number]#1.[address] [facility] Patient Letter [facility]2022 Patient Letter [facility] January 29, 20[address] EVON CORCORAN [address] [place] [address] TAMARASARMADEVON L 1950 We are pleased that you have agreed to participate in our Care Management service. As discussed, we can assist you to coordinate your health care needs and educate you about your health conditions. Our goal is to help you achieve the best possible health outcomes. As part of our service, we will assist you in the following areas: ? Assign a Soil Checker who will work with you to help you meet your health goals ? Create a plan to assist with your care needs ? Coordinate care between providers and services ? Assist with finding a doctor or service, including community resources We appreciate the opportunity to serve you. Please call if you have any questions or needs before our next scheduled phone contact on 02/19/2023 at 08:00 AM. [facility] RN Chronic Soil Checker [phone] opt. #[address] [facility] Consent for Procedure/Surger yon 01-27-2023 Consent for Procedure/Surgery [id number]#1.[address] [facility] Consent for Treatmenton 01-14 Consent for Treatment [id number]#1.00T IFF [facility] Multi-Wound Charton 01-28-20 Multi-Wound Chart [id number]#1.[address] [facility] Nursing Assessment - Woundon 01-27-2023 Nursing Assessment - Wound [id number]#1.[address] [facility] Nursing Note - Woundon 01-27 Nursing Note - Wound [id number]#1.[address] [facility] Physician Orderon 01-27-2023 Physician Order [id number]#1.[address] [facility] Procedure - Woundon 01-28-20 Procedure - Wound [id number]#1.[address] [facility] Progress Note - Woundon 01-14 Progress Note - Wound [id number]#1.[address] [facility] Ambulatory Visit Summaryon 03-28-2022 Ambulatory Visit Summary EVON CORCORAN :1950 Visit Date:01/26/2023 Ambulatory Visit Instructions Your Diagnosis Initial Medicare annual wellness visit Diabetes Long-term insulin use Chronic renal impairment, stage 3a On statin therapy Anticoagulated Encounter for hepatitis C screening test for low risk patient BMI 37.0-37.9, adult Your Care Team Attending Physician - Christopher WELLS DO, FAAFP Primary Care Physician - Christopher WELLS DO, FAAFP This Is Your Medications List Misc Prescription (Glucometer) Misc Prescription (Lancets) Misc Prescription (Test strips) acetaminophen (Tylenol 8 HR Arthritis Pain) amlodipine (amLODIPine 5 mg Tab) aspirin atorvastatin (atorvastatin 40 mg Tab) calcium-vitamin D (calcium (as carbonate)-vitamin D 500 mg-400 intl units oral tablet) chlorthalidone (chlorthalidone 25 mg Tab) doxycycline (doxycycline hyclate 100 mg Cap) insulin degludec (Tresiba FlexTouch 100 units/mL subcutaneous solution) insulin lispro (Lyumjev KwikPen 100 units/mL injectable solution) losartan (losartan 50 mg Tab) metoprolol (Metoprolol succinate 50 mg ER Tablet) multivitamin (Multi Vitamins oral tablet) nitroglycerin (NitroStat 0.4 mg Tab) potassium chloride (potassium chloride 10 mEq Cap-ER) psyllium (Metamucil) rivaroxaban (Xarelto 10 mg oral tablet) ubiquinone (Co Q-10) Procedures Performed Colonoscopy (05/21/2022), Colonoscopy (04/15/2017), Cardiac Stents x 3, Cholecystectomy, Hysterectomy. Discharge Vitals Temperature (Oral) 37 ?C Heart Rate (Peripheral) 65 Blood Pressure 124/72 Height 162.56 cm Height 64 in Weight 97.8 kg Weight 215.16 lb BMI 37.01 What to do next Scheduled Follow-Up Appointments Thursday 2:00 PM EST With: Denton Castro DPM Where: [facility] Thursday 9:45 AM EST With: Where: [facility] Thursday 8:45 AM EST With: Gary Cerda MD Where: [facility] 2022 8:00 AM EST With: Linda Solorio CNP Where: [facility] Invalid Interpretation Code [address], [facility] [place] [address]- \.br\ Thursday 8:00 AM EST \.br\ With:\.br\ Where: [facility] Family Medicine Office/Clini c Noteon 01-26-2023 Family Medicine Office/Clinic Note Chief Complaint Initial medicare Wellness Visit Review of Systems PHQ Score Initial Depression Screen Score: 0 SCORE Physical Exam Vitals & Measurements T: 37 ?C(Oral) HR: 65(Peripheral) BP: 124/72 SpO2: 96% HT: 162.56 cm HT: 64 in WT: 97.8 kg WT: 215.16 lb BMI: 37.01 Assessment/Plan 1. Initial Medicare annual wellness visit (Z00.00: Encounter for general adult medical examination without abnormal findings) The patient was given a customized and personalized print out of all the current AHRQ USPSTF?s recommendations for preventative services and all current CDC recommended immunizations, relevant risk recommendations and the following patient brochures were given. Reviewed Medicare Prevention Services checklist. CDC-Falls Prevention and home safety screening reviewed. Patient denies any falls in last 12 months, voices no worry about falling. Exhibits no problems with sitting, standing or ambulation. Patient aware with keeping walk way area free of clutter to prevent tripping and/or falling. [place] Advance Directives reviewed. Documents remain at home, encouraged to complete and bring in for scanning into chart. Patient denies any problems with ADL?s and Instrumental ADL?s. Cognitive screening completed with memory and clock face drawing. No deficits noted. Immunization record reviewed, discussed Shingrix and COVID vaccines, all up to date. Will get Influenza vaccine in the near future for this year. Allergies and medications reviewed and up to date. No concerns with taking medication as prescribed. Reviewed OTC medications, medication list up to date. Blood tests were reviewed: Discussed what tests need to be updated. Labs were ordered, to be completed with [facility]. Mammogram and DEXA scan up to date, last completed 11/24/2022. No concerns with bowel/ bladder. Colonoscopy last completed 05/21/2022 with a 7 year repeat. Reviewed pain symptoms : denies any pain at this time, no routine pain medications taken. Reviewed all outside providers that patient follows. Last visit summary notes available in chart and/or have been requested. Patient declines any signs or symptoms of depression at this time. 8 minutes spent with screening and documentation. PHQ2 screening score 0. Patient drinks alcohol monthly or less,1-2 drinks, denies concerns. 8 minutes spent with screening and documentation. Audit score 1. Follow up scheduled with PCP, 03/20/2022. AWV has been scheduled, . 2. Diabetes (E11.9: Type 2 diabetes mellitus without complications) DM stoplight handout reviewed with signs and symptoms to monitor for and report to PCP. Discussed ADA dietary recommendations with handouts provided. Encouraged to increase daily physical activity, adequate water intake, monitor carbs/chol and fats. Taking medications daily as directed, occasionally monitoring BS at home. Follows with Endocrinology Dr Lundy as directed. Following with Podiatry Dr Castro frequently foot/nail care, ulceration to leg. Reminded to perform at home foot checks to prevent future complications. DM eye exams completed about every 2 years. Encouraged to schedule appointment soon as vision could be compromised or even lost with having Diabetes. Will continue to follow up with providers as directed. 3. Long-term insulin use (Z79.4: long-term (current) use of insulin) Patient voices understanding with proper use of insulin dosage. Follows up with labs, DM supplies and dosage adjustments as needed. Reviewed available sites that can be used to administer Insulin, patient voices understanding. Will continue as directed. 4. Chronic renal impairment, stage 3a (N18.31: Chronic kidney disease, stage 3a) Follows with [facility], Dr. Núñez. Encouraged with avoiding NSAID's. Healthy Kidney Nutritional education material provided. Goals to keep blood sugars and blood pressure under better control to reduce cardiovascular risk factors. Medications and blood work monitored with visits. Continues taking statin medication daily. 5. On statin therapy (Z79.899: Other residential (current) drug therapy) Taking Atorvastatin daily, encouraged to eat a diet that is low in saturated fats. Stressed importance of loosing weight as being overweight does produce more lipids. Risks may also increase with a family history of hyperlipidemia. Encouraged with healthy dietary choices to reduce risk factors associated with CVA. Will continue to follow up with labs as directed. 6. Anticoagulated (Z79.01: 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 of anticoagulants) Taking Xarelto and aspirin as directed. Encouraged to monitor for nose bleeds, bleeding gums or unusual bruising and report to providers. Understanding voiced with importance of taking medication daily. Will continue to follow with labs and providers as directed. 7. Encounter for hepatitis C screening test for low risk patient (Z11.59: Encounter for screening for other viral diseases) Discussed with patient the risk of Hepatitis C for people born between 2681-0099. Hand (more content not included)... [facility] Comment on above: Result Comment: Elec tronically Signed By: Christopher WELLS DO, FAAFP\.br\Date and Time Signed: 01/26/23 17:15 EST\.br\Electronically Co-Signed By: Lesly West LPN\.br\Date and Time Co-Signed: 01/26/23 09:21 EST Nursing Assessment - Woundon 01-26-2023 Nursing Assessment - Wound [id number]#2.[address] [facility] Nursing Note - Woundon 01-26 Nursing Note - Wound [id number]#2.[address] [facility] Patient Educationon 01-27-20 23 Patient Education [facility] Fall Prevention in the Home, Adult Falls can cause injuries and can happen to people of all ages. There are many things you can do to make your home safe and to help prevent falls. Ask for help when making these changes. What actions can I take to prevent falls? General Instructions ? Use good lighting in all rooms. Replace any light bulbs that burn out. ? Turn on the lights in dark areas. Use night-lights. ? Keep items that you use often in jpop-tw-jpeqf places. Lower the shelves around your home if needed. ? Set up your furniture so you have a clear path. Avoid moving your furniture around. ? Do not have throw rugs or other things on the floor that can make you trip. ? Avoid walking on wet floors. ? If any of your floors are uneven, fix them. ? Add color or contrast paint or tape to clearly spike and help you see: ? Grab bars or handrails. ? First and last steps of staircases. ? Where the edge of each step is. ? If you use a stepladder: ? Make sure that it is fully opened. Do not climb a closed stepladder. ? Make sure the sides of the stepladder are locked in place. ? Ask someone to hold the stepladder while you use it. ? Know where your pets are when moving through your home. What can I do in the bathroom? ? Keep the floor dry. Clean up any water on the floor right away. ? Remove soap buildup in the tub or shower. ? Use nonskid mats or decals on the floor of the tub or shower. ? Attach bath mats securely with double-sided, nonslip rug tape. ? If you need to sit down in the shower, use a plastic, nonslip stool. ? Install grab bars by the toilet and in the tub and shower. Do not use towel bars as grab bars. What can I do in the bedroom? ? Make sure that you have a light by your bed that is easy to reach. ? Do not use any sheets or blankets for your bed that hang to the floor. ? Have a firm chair with side arms that you can use for support when you get dressed. What can I do in the kitchen? ? Clean up any spills right away. ? If you need to reach something above you, use a step stool with a grab bar. ? Keep electrical cords out of the way. ? Do not use floor ugandan or wax that makes floors slippery. What can I do with my stairs? ? Do not leave any items on the stairs. ? Make sure that you have a light switch at the top and the bottom of the stairs. ? Make sure that there are handrails on both sides of the stairs. Fix handrails that are broken or loose. ? Install nonslip stair treads on all your stairs. ? Avoid having throw rugs at the top or bottom of the stairs. ? Choose a carpet that does not hide the edge of the steps on the stairs. ? Check carpeting to make sure that it is firmly attached to the stairs. Fix carpet that is loose or worn. What can I do on the outside of my home? ? Use bright outdoor lighting. ? Fix the edges of walkways and driveways and fix any cracks. ? Remove anything that might make you trip as you walk through a door, such as a raised step or threshold. ? Trim any bushes or trees on paths to your home. ? Check to see if handrails are loose or broken and that both sides of all steps have handrails. ? Install guardrails along the edges of any raised decks and porches. ? Clear paths of anything that can make you trip, such as tools or rocks. ? Have leaves, snow, or ice cleared regularly. ? Use sand or salt on paths during winter. ? Clean up any spills in your garage right away. This includes grease or oil spills. What other actions can I take? ? Wear shoes that: ? Have a low heel. Do not wear high heels. ? Have rubber bottoms. ? Feel good on your feet and fit well. ? Are closed at the toe. Do not wear open-toe sandals. ? Use tools that help you move around if needed. These include: ? Canes. ? Walkers. ? Scooters. ? Crutches. ? Review your medicines with your doctor. Some medicines can make you feel dizzy. This can increase your chance of falling. Ask your doctor what else you can do to help prevent falls. Where to find more information ? Centers for Disease Control and Prevention, [place]: www.cdc.gov ? National [place] on Aging: www.[place].nih.gov Contact a doctor if: ? You are afraid of falling at home. ? You feel weak, drowsy, or dizzy at home. ? You fall at home. Summary ? There are many simple things that you can do to make your home safe and to help prevent falls. ? Ways to make your home safe include removing things that can make you trip and installing grab bars in the bathroom. ? Ask for help when making these changes in your home. This information is not intended to replace advice given to you by your health care provider. Make sure you discuss any questions you have with your health care provider. Document Revised: 12/02/2021 Document Reviewed: 10/03/2020 [employer] Patient Education ? 2022 [employer]. Endocrinology Diabetes Melli (more content not included)... [facility] Screenson 01-26-2023 Screens [id number]#1.00TI FF [facility] Multi-Wound Charton 01-24-20 23 Multi-Wound Chart [id number]#1.[address] [facility] Physician Orderon 01-23-2023 Physician Order [id number]#1.[address] [facility] Consent for Treatmenton Consent for Treatment [id number]#1.00T IFF [facility] Consent for Procedure/Surger yon 01-14-2023 Consent for Procedure/Surgery [id number]#1.[address] [facility] Consent for Procedure/Surgery [id number]#1.[address] [facility] Nursing Assessment - Woundon 01-14-2023 Nursing Assessment - Wound [id number]#1.00 TIFF Normal [facility] Nursing Note - Woundon 01-14 Nursing Note - Wound [id number]#2.00 TIFF Normal [facility] CHEMISTRYOrdered By: Cynthia Serrano se on 01-13-2023 HbA1c (Bld) [Mass fraction] 11.5 % High <=5.9% [facility] Chem[facility] Consent for Treatmenton 12-16 Consent for Treatment [id number]#1.00T IFF Normal [facility] Consent to Photographon 12-16 Consent to Photograph [id number]#1.00T IFF Normal [facility] Correspondence - Woundon Correspondence - Wound [id number]#1.00T IFF Normal [facility] Correspondence - Wound [id number]#1.00T IFF Normal [facility] Correspondence - Wound [id number]#1.00T IFF Normal [facility] OgoP2rzd 01-13-2023 HbA1c (Bld) [Mass fraction] 11.5 % High <=5.9 [facility] Comment on above: Performed By: #### 1 [id number] #### [facility] [address] [place] [address] Multi-Wound Charton 01-14-20 Multi-Wound Chart [id number]#1.00 [facility] 01-13-2023 Nursing Assessment - Wound [id number]#1.00 TIFF Normal [facility] Outside Recordson 01-13-2023 Outside Records [id number]#1.00T IFF Normal [facility] Patient Correspondenceon Patient Correspondence [id number]#1.00 TIFF Normal [facility] Physician Orderon 01-13-2023 Physician Order [id number]#1.00 TIFF Normal [facility] Procedure - Woundon 01-14-20 Procedure - Wound [id number] 002 [id number]#1.00 TIFF Normal [facility] Progress Note - Woundon 12-16 Progress Note - Wound [id number]#1.00 TIFF Normal [facility] Insurance Correspondenceon Insurance Correspondence [id number]#1.0 0TIFF Normal [facility] Radiology Outside Office Toilet [employer] Molder yon 01-07-2023 Radiology Outside Office Copy [id number]#1.00 TIFF Normal [facility] Consent for Treatmenton 12-15 Consent for Treatment [id number]#1.00T IFF Normal [facility] Consultation Noteon 01-07-20 Consultation Note Patient: EVON CORCORAN Age: 72 years Sex: Female : 1950 Associated Diagnoses: None Author: Prashant PIMENTEL, Gary Gomez Basic Information Accompanied by: No one. Source of history: Self. Referral source: Christopher WELLS DO, FAAFP History limitation: None. Chief Complaint 01/06/2023 8:13 EDT Bilateral hip pain left worse than right. History of Present Illness 72-year-old female with multiple medical problems including diabetes and peripheral vascular disease who has had a stent for vascular disease placed earlier this year. She developed rather severe left anterior hip and groin pain approximately 4 to 5 months ago with no inciting injury or trauma. She denies any falls. Patient has tried physical therapy and experience no relief. Cannot take NSAIDs due to chronic Xarelto use and renal insufficiency. Pain is worse when she is up on her feet and completely gone when she sits. Her legs do feel fatigued the longer she stands. Pain can rate up to a 10 out of 10 on the numeric rating scale. RADHA is 22. Patient has to use a motorized scooter when she is planning to go longer distances. Denies red flag symptoms. Review of Systems Complete review of systems obtained and reviewed. Form scanned. Pertinent findings are noted in the HPI. Health Status Allergies: Allergic Reactions (All) Severity Not Documented Aldactazide- Hives. Cardura- Unknown. Diovan- Unknown. Glucophage- No reactions were documented. Hydrochlorothiazide-lis inopril- Diarrhea. Hytrin- No reactions were documented. Prinivil- No reactions were documented. Zestril- Diarrhea. Canceled/Inactive Reactions (All) No Known Allergies Current medications: Home Medications (20) Active amLODIPine 5 mg Tab 5 mg = 1 tab(s), Oral, Daily aspirin 81 mg, Oral, Daily atorvastatin 40 mg Tab calcium (as carbonate)-vitamin D 500 mg-400 intl units oral tablet 1 tab(s), Oral, Daily chlorthalidone 25 mg Tab 25 mg = 1 tab(s), Oral, Bedtime Co Q-10 , Oral, Daily doxycycline hyclate 100 mg Cap 100 mg = 1 cap(s), Oral, BID Glucometer See Instructions Lancets See Instructions losartan 50 mg Tab 50 mg = 1 tab(s), Oral, BID Lyumjev KwikPen 100 units/mL injectable solution Metamucil , Oral Metoprolol succinate 50 mg ER Tablet , Oral, Daily Multi Vitamins oral tablet 1 tab(s), Oral, Bedtime NitroStat 0.4 mg Tab 0.4 mg = 1 tab(s), PRN, SubLingual, q5min potassium chloride 10 mEq Cap-ER 10 mEq = 1 cap(s), Oral, Daily Test strips See Instructions Tresiba FlexTouch 100 units/mL subcutaneous solution 50 unit(s), SubCutaneous, Daily Tylenol 8 HR Arthritis Pain 650 mg, PRN, Oral, q8hr Xarelto 10 mg oral tablet , Oral, Daily Problem list: All Problems BRBPR (bright red blood per rectum) / SNOMED CT 136848383 / Confirmed Breast cancer screening by mammogram / SNOMED CT 873638294 / Confirmed CAD in [place] artery / SNOMED CT 73539779 / Confirmed Change in bowel habits / SNOMED CT 723482760 / Confirmed Chronic renal impairment, stage 3a / SNOMED CT 2930165003 / Confirmed Claudication of both lower extremities / SNOMED CT 138735665 / Confirmed Colon polyp / SNOMED CT 638905241 / Confirmed Degenerative localized arthritis of hip / SNOMED CT 175054518 / Confirmed 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 / SNOMED CT 781988585 / Confirmed Diabetes / SNOMED CT 532244998 / Confirmed Diarrhea / SNOMED CT 591725595 / Confirmed Enthesopathy of left hip region / SNOMED CT 57630730 / Confirmed Familial hypercholesteremia / SNOMED CT 5858048625 / Confirmed Hemorrhoids / SNOMED CT 303709882 / Confirmed History of colon polyps / SNOMED CT 1187346692 / Confirmed History of DVT in adulthood / SNOMED CT 4034353496 / Confirmed HTN - Hypertension / SNOMED CT 0677030523 / Confirmed Hypertensive heart and chronic kidney disease without heart failure, with stage 1 through stage 4 chronic kidney disease, or unspecified chronic kidney disease / SNOMED CT 0527169627 / Confirmed noted in 12/10/2021 Nephrology Consult Note page 3. added per outpatient CDI policy. Long-term insulin use / SNOMED CT 9351611538 / Confirmed Current Medication List includes Tresiba. added per outpatient CDI policy. Lumbar disc herniation / SNOMED CT 291375182 / Confirmed Lumbar stenosis / SNOMED CT 72486974 / Confirmed Mild nonproliferative diabetic retinopathy of both eyes / SNOMED CT 402365454 / Confirmed noted in 08/21/2019 Diabetic Eye Exam. added per outpatient CDI policy. Morbid obesity / SNOMED CT 011384171 / Confirmed Non-smoker / SNOMED CT 34011430 / Confirmed Primary ovarian failure / SNOMED CT 176483805 / Confirmed Sleep apnea / SNOMED CT 318305663 / Confirmed Type 2 diabetes mellitus with hypercholesterolemia / SNOMED CT 482590894 / Confirmed linked DM with hypercholesterolemia per outpatient CDI policy. Type 2 diabetes mellitus with stage 3 chronic kidney disease / SNOMED CT 440381046 / Confirmed linked DM with CKD (more content not included)... Normal [facility] Comment on above: Result Comment: Elec tronically Signed By: Prashant PIMENTEL, Gary Damon.br\Date and Time Signed: 01/06/23 09:13 EDT HIPAA Forms Officeon 023 HIPAA Forms Office [id number] [facility] [id number]#1.00 TIFF Normal [facility] Legal Correspondence Officeo n 01-06-2023 Legal Correspondence Office [id number]#1.00 TIFF Normal [facility] Legal Correspondence Office [id number]#1.00 TIFF Normal [facility] Office/Clinic Note-Physician on 01-06-2023 Office/Clinic Note-Physician [id number]#1.00 TIFF Normal [facility] Patient Correspondenceon Patient Correspondence [id number]#1.00 TIFF Normal [facility] Patient Correspondence [id number]#1.00 TIFF Normal [facility] Patient Correspondence [id number]#1.00 TIFF Normal [facility] Patient Correspondence [id number]#1.00 TIFF Normal [facility] Patient Correspondence [id number]#1.00 TIFF Normal [facility] Patient History Officeon Patient History Office [id number]#1.00 TIFF Normal [facility] Radiology Outside Office 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 Products Molder yon 01-06-2023 Radiology Outside Office Copy [id number]#1.00 TIFF Normal [facility] Consent for Treatmenton 12-14 Consent for Treatment [id number]#1.00T IFF Normal [facility] MRI Pelvis (Bony) w/o contra ston 12-31-2022 MRI Pelvis (Bony) w/o contrast Exam Date/Time: 12/31/2022 07:56 EDT Reason for Exam: M48.061, M51.37, R60.0 Report IMPRESSION: Small amount of edema-like signal adjacent to the SI joints bilaterally, could represent healing sacral insufficiency type fractures or be degenerative in etiology. EXAMINATION: MRI Pelvis (Bony) w/o contrast History: Abnormal MRI of the lumbar spine. Technique: Routine MRI of the pelvis and hip(s). With sacroiliac joint protocol. Comparison: Lumbar MRI 12/08/2022. RESULT: Small amount of edema-like signal involving the superior sacrum bilaterally adjacent to the SI joints, similar to the recent lumbar MRI, which is overall nonspecific could represent healing sacral insufficiency type fractures or be degenerative in etiology. Patchy marrow signal elsewhere, likely secondary to underlying decreased bone marrow density. Other portions of the visualized bony pelvis and hips without evidence for acute fracture. Visualized lower lumbar spine grossly unchanged from the recent lumbar MRI. Hemangioma at L4, unchanged. Limited evaluation of the visceral pelvis with hysterectomy, decompressed bladder, and colonic diverticulosis. Visualized musculature and tendons are grossly unremarkable. Mild subcutaneous edema posteriorly. Ordering Provider: Catrachito Wolf FINAL REPORT Dictated: 12/31/2022 10:47 am Jalil Booth MD Signed (Electronic Signature): 12/31/2022 10:47 am Signed by: Jalil Booth MD Transcribed by: KATEY Technologist: NUBIA Normal [facility] RAD - MRI Screening Formon 1 RAD - MRI Screening Form [id number]#1.00 TIFF Normal [facility] Physician Orderon 12-24-2022 Physician Order [id number]#1.00T IFF Normal [facility] Physician Order [id number]#1.00T IFF Normal [facility] Outside Records Officeon Outside Records Office [id number]#1.00 TIFF Normal [facility] Referrals Officeon Referrals Office [id number]#1.[address] [facility] Consultation Noteon 12-23-19 Consultation Note [id number]#1.00T IFF [facility] Physician Orderon 12-22-2022 Physician Order [id number]#1.[address] [facility] Ambulatory Visit Summaryon 1 Ambulatory Visit Summary EVON CORCORAN Brent :1950 Visit Date:12/18/2022 Ambulatory Visit Instructions Your Diagnosis Enthesopathy of left hip region Hypertensive heart and chronic kidney disease without heart failure, with stage 1 through stage 4 chronic kidney disease, or unspecified chronic kidney disease Long-term insulin use BMI 36.0-36.9,adult Morbid obesity Chronic renal impairment, stage 3a CAD in [place] artery Type 2 diabetes mellitus with hypercholesterolemia HTN - Hypertension Lumbar disc herniation Lumbar stenosis Venous stasis ulcer Non-pressure chronic ulcer of unspecified part of unspecified lower leg with unspecified severity Pure hypercholesterolemia, unspecified Your Care Team Attending Physician - Christopher WELLS DO, FAAFP Primary Care Physician - Christopher WELLS DO, FAAFP This Is Your Medications List Misc Prescription (Glucometer) Misc Prescription (Lancets) Misc Prescription (Test strips) amlodipine (amLODIPine 5 mg Tab) aspirin chlorthalidone (chlorthalidone 25 mg Tab) doxycycline (doxycycline hyclate 100 mg Cap) insulin degludec (Tresiba FlexTouch 100 units/mL subcutaneous solution) losartan (losartan 50 mg Tab) metoprolol (Metoprolol succinate 50 mg ER Tablet) multivitamin (Multi Vitamins oral tablet) nitroglycerin (NitroStat 0.4 mg Tab) potassium chloride (potassium chloride 10 mEq Cap-ER) psyllium (Metamucil) rivaroxaban (Xarelto 10 mg oral tablet) ubiquinone (Co Q-10) Procedures Performed Colonoscopy (05/21/2022), Colonoscopy (04/15/2017), Cardiac Stents x 3, Cholecystectomy, Hysterectomy. Discharge Vitals Temperature (Oral) 36.6 ?C Heart Rate (Peripheral) 61 Respiratory Rate 18 Blood Pressure 128/78 Height 165 cm Height 65 in Weight 98.5 kg Weight 216.7 lb BMI 36.18 What to do next Scheduled Follow-Up Appointments Thursday 8:00 AM EST With: Where: [facility] [facility] Normal [address] [place] [address] [place] [address]- \.br\ You Need to Schedule the Following Appointments\.br\ Follow Up with LIBAN SHEPHERD FAAFP, CHERISE Estrada, BENJAMIN When: In 3 months\.br\ Where:\.br\ [address], [address]br\ [place] [address].br\ \.br\ Medications\.br\ What How Much When Why Instructions\.br\ New doxycycline (doxycycline hyclate 100 mg Cap) 1 Capsules By Mouth 2 times a day Venous stasis ulcer Refills: 1 Pickup at [id number]\.br\ Unchanged amlodipine (amLODIPine 5 mg Tab) 1 Tablets By Mouth Every day\.br\ Unchanged aspirin 81 Milligram By Mouth Every day\.br\ Unchanged chlorthalidone (chlorthalidone 25 mg Tab) 1 Tablets By Mouth At bedtime\.br\ Unchanged insulin degludec (Tresiba FlexTouch 100 units/ mL subcutaneous solution) 50 Units Subcutaneous Every day Dx E11.65 \.br\ Unchanged losartan (losartan 50 mg Tab) 1 Tablets By Mouth 2 times a day\.br\ Unchanged metoprolol (Metoprolol succinate 50 mg ER Tablet) By Mouth Every day\.br\ Unchanged Misc Prescription (Glucometer) See instructions Dx: E11.9 Directions: Test BID \.br\ Unchanged Misc Prescription (Lancets) See instructions Dx: E11.9 Directions: BID \.br\ Unchanged [facility] Prescription (Test strips) See instructions Dx: E11.9 Directions: BID \.br\ Unchanged multivitamin (Multi Vitamins oral tablet) 1 Tablets By Mouth At bedtime\.br\ Unchanged nitroglycerin (NitroStat 0.4 mg Tab) 1 Tablets Sublingual Every 5 minutes as needed for Chest pain\.br\ Unchanged potassium chloride (potassium chloride 10 mEq Cap-ER) 1 Capsules By Mouth Every day\.br\ Unchanged psyllium (Metamucil) By Mouth\.br\ Unchanged rivaroxaban (Xarelto 10 mg oral tablet) By Mouth Every day\.br\ Unchanged ubiquinone (Co Q-10) By Mouth Every day\.br\ Pharmacy Information\.br\ [id number]: [address] [place], [place] [id number] [phone]\.br\ Medications and Immunizations Administered\.br\ Not Given\.br\ influenza virus vaccine, inactivated, Patient Refuses\.br\ Allergies\.br\ Aldactazide (Hives)\.br\ Cardura (Unknown)\.br\ Diovan (Unknown)\.br\ Glucophage\.br\ Hytrin\.br\ Prinivil\.br\ Zestril (Diarrhea)\.br\ hydrochlorothiazi de-lisinopril (Diarrhea)\.br\ Problems\.br\ Ongoing - Any problem that you are currently receiving treatment for.\.br\ BRBPR (bright red blood per rectum)\.br\ Breast cancer screening by mammogram\.br\ CAD in [place] artery\.br\ Change in bowel habits\.br\ Chronic renal impairment, stage 3a\.br\ Claudication of both lower extremities\.br\ Colon polyp\.br\ Degenerative localized arthritis of hip\.br\ 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\.br\ Diarrhea\.br\ Enthesopathy of left hip region\.br\ Familial hypercholesteremi a\.br\ Hemorrhoids\.br\ History of colon polyps\.br\ History of DVT in adulthood\.br\ HTN - Hypertension\.br\ Hypertensive heart and chronic kidney disease without heart failure, with stage 1 through stage 4 chronic kidney disease, or unspecified chronic kidney disease\.br\ Long-term insulin use\.br\ Lumbar disc herniation\.br\ Lumbar stenosis\.br\ Mild nonproliferative diabetic retinopathy of both eyes\.br\ Morbid obesity\.br\ Non-smoker\.br\ Primary ovarian failure\.br\ Type 2 diabetes mellitus with hypercholesterole nathalie\.br\ Type 2 diabetes mellitus with stage 3 chronic kidney disease\.br\ Venous stasis ulcer\.br\ Historical - Any problem that you are no longer receiving treatment for.\.br\ BMI 32.0-32.9,adult\. br\ DVT - Deep vein thrombosis\.br\ Hyperlipidemia\.b r\ Postsurgical dumping syndrome\.br\ Stage 3b chronic kidney disease\.br\ Education Materials\.br\ Venous Ulcer\.br\ A venous ulcer is a shallow sore on your lower leg. Venous ulcer is the most common type of lower leg ulcer. You may have venous ulcers on one leg or on both legs. This condition most often develops around your ankles. This type of ulcer may last for a long time (chronic ulcer) or it may return often (recurrent ulcer).\.br\ What are the causes?\.br\ This condition is caused by poor blood flow in your legs. The poor flow causes blood to pool in your legs. This can break the skin, causing an ulcer.\.br\ What increases the risk?\.br\ You are more likely to develop this condition if:\.br\ ? \.br\ You are 65 years of age or older.\.br\ ? \.br\ You are female.\.br\ ? \.br\ You are overweight.\.br\ ? \.br\ You are not active.\.br\ ? \.br\ You have had a leg ulcer in the past.\.br\ ? \.br\ You have varicose veins.\.br\ ? \.br\ You have clots in your lower leg veins (deep vein thrombosis).\.br\ ? \.br\ You have inflammation of your leg veins (phlebitis).\.br\ ? \.br\ You have recently been .\.br\ ? \.br\ You smoke.\.br\ What are the signs or symptoms?\.br\ \.br\ The main symptom of this condition is an open sore near your ankle. Other symptoms may include:\.br\ ? \.br\ Swelling.\.br\ ? \.br\ Thick skin.\.br\ ? \.br\ Fluid coming from the ulcer.\.br\ ? \.br\ Bleeding.\.br\ ? \.br\ Itching.\.br\ ? \.br\ Pain and swelling. This gets worse when you stand up and feels better when you raise your leg.\.br\ ? \.br\ Blotchy skin.\.br\ ? \.br\ Dark skin.\.br\ How is this treated?\.br\ This condition may be treated by:\.br\ ? \.br\ Keeping your leg raised (elevated).\.br\ ? \.br\ Wearing a type of bandage or stocking to keep pressure (compression) on the veins of your leg.\.br\ ? \.br\ Taking medicines, including antibiotic medicines.\.br\ ? \.br\ Cleaning your ulcer and removing any tissue from the wound.\.br\ ? \.br\ Using bandages and wraps that have medicines in them to cover your ulcer.\.br\ ? \.br\ Closing the wound using a piece of skin taken from another area of your body (graft).\.br\ Follow these instructions at home:\.br\ Medicines\.br\ ? \.br\ Take or apply mkkd-naw-tpfzufy and prescription medicines only as told by your doctor.\.br\ ? \.br\ If you were prescribed an antibiotic medicine, take it as told by your doctor. Do not stop using the antibiotic even if you start to feel better.\.br\ ? \.br\ Ask your doctor if you should take aspirin before long trips.\.br\ Wound care\.br\ ? \.br\ Follow instructions from your doctor about how to take care of your wound. Make sure you:\.br\ ? \.br\ Wash your hands with soap and water before and after you change your bandage (dressing). If you cannot use soap and water, use hand body presser.\.br\ ? \.br\ Change your bandage as told by your doctor.\.br\ ? \.br\ If you had a skin graft, leave stitches (sutures) in place. These may need to stay in place for 2 weeks or longer.\.br\ ? \.br\ Ask when you should remove your bandage. If your bandage is dry and sticks to your leg when you try to remove it, moisten or wet the bandage with saline solution or water to make it easier to remove.\.br\ ? \.br\ Once your bandage is off, check your wound each day for signs of infection. Have a caregiver do this for you if you are not able to do it yourself. Check for:\.br\ ? \.br\ More redness, swelling, or pain.\.br\ ? \.br\ More fluid or blood.\.br\ ? \.br\ Warmth.\.br\ ? \.br\ Pus or a bad smell.\.br\ Activity\.br\ ? \.br\ Do not sit for a long time without moving. Get up to take short walks every 1?2 hours. This is important. Ask for help if you feel david [facility] Family Medicine Office/Clini c Noteon 12-18-2022 Family Medicine Office/Clinic Note Chief Complaint Patient here for 2 month f/u on hip pain. Will get flu shot at pharmacy. History of Present Illness Patient is here for follow-up on Diabetes. How often are you checking your blood sugars? _q some day What are your average readings? _170 avg Do you have low blood sugar readings/symptoms? _No Do you have high blood sugar readings/symptoms? No_ Are you compliant with your diet? For the most part _ Do you exercise? Yes Are you compliant with your medications or having difficulty affording your medications? yes and no issues Do you have any of the following symptoms? Vision problems? No Sexual dysfunction? No GI-Nausea/committing/bl oating? No Lightheadedness? No Paresthesias, Ulcerations or sores? No Another MRI of back being done per ortho to eval hip pain. L anterior groin is where most of the hip pain is. Review of Systems PHQ Score Initial Depression Screen Score: 0 ROS - Provider Constitutional: no fever, no chills, no sweats, no weakness. Skin: no Jaundice, no rash, no lesions, no petechiae. ENMT: no ear pain, no sore throat, no congestion, no hoarseness. Respiratory: no shortness of breath, no cough, no orthopnea, no wheezing. Cardiovascular: no chest pain, no palpitations, no edema. Gastrointestinal: no nausea, no vomiting, no diarrhea, no GI bleeding.no constipationnoheartburn Genitourinary: no dysuria, no hematuria, no discharge, no pain.nofreq/urgency Musculoskeletal: no back pain, no trauma.nojoint pain Neurologic: no headache, no dizziness, no numbness, no weakness. Psychiatric: no sleeping problems, no irritability, no mood swings/depression. Heme/Lymph: no bleeding tendency, no bruising tendency, no petechiae, no swollen lymph nodes no Allergy/Imunology no seasonal allergies, no food allergies, no recurrent infections, no impaired immunity. Additional ROS info: Except as noted in the above Review of Systems and in the History of Present Illness all other systems have been reviewed and are negative or noncontributory. Physical Exam Vitals & Measurements T: 36.6 ?C(Oral) HR: 61(Peripheral) RR: 18 BP: 128/78 SpO2: 96% HT: 65 in HT: 165 cm WT: 98.5 kg WT: 216.7 lb BMI: 36.18 General: Well developed, well nourished, in no acute distress Mouth: Mucous membranes moist. Normal oropharynx, and posterior pharynx without lesions or exudates. Tongue normal Neck: Neck supple. No masses or palpable cervical nodes. Trachea midline. Thyroid without nodules, masses, tenderness, or enlargement Lungs: Normal respiratory effort and clear to auscultation Cardio: Regular rate and rhythm, normal S1 and S2, no murmur, no rub Abdomen: Soft, non-distended, non-tender. no G/R/S/Masses Musculoskeletal: No deformity or scoliosis noted. Normal range of motion. Joints normal. No erythema, edema, effusion, or ecchymosis Extremity: No clubbing, cyanosis, edema, or deformity, with normal ROM in both upper and lower bilateral extremities Neurologic: Grossly normal Skin: No rashes, ulcerations, or suspicious lesions except for venous insufficiency of anterior left leg with dime shaped venous stasis ulcer with fibrin and surrounding Arabella type erythema, superficial in appearance. She does have small eschar forming at approximately 2 o'clock position of approximately 2 mm Mental Status: Alert and oriented x3. Normal mood and affect Assessment/Plan 1. Enthesopathy of left hip region (M76.892: Other specified enthesopathies of left lower limb, excluding foot) Orthopedic surgery following, please see consultative report Catrachito Ayala last month. Ortho has referred to pain management. MRI without contrast pending 2. Hypertensive heart and chronic kidney disease without heart failure, with stage 1 through stage 4 chronic kidney disease, or unspecified chronic kidney disease (I13.10: Hypertensive heart and chronic kidney disease without heart failure, with stage 1 through stage 4 chronic kidney disease, or unspecified chronic kidney disease) Dr. Ruggiero following along with cardiology. Continue amlodipine 5 mg p.o. daily baby aspirin p.o. daily chlorthalidone 25 mg p.o. daily losartan 50 mg p.o. twice daily metoprolol succinate 50 mg ER p.o. daily and potassium chloride 10 mill equivalent p.o. ER daily. 3. Long-term insulin use (Z79.4: long-term (current) use of insulin) Tresiba 50 units SQ daily per Dr. Ruggiero, he performing A1c's 4. BMI 36.0-36.9,adult (Z68.36: Body mass index [BMI] 36.0-36.9, adult) The standard range for ages 18 and older is >=18.5 and < 25 kg/m2. Your BMI today was above this range, this falls in the overweight to obese category and there are medical benefits to weight loss. We can offer counselling, referral, and/or medical support in addressing this problem. Your BMI and weight management will be followed at subsequent visits. 5. Morbid obesity (E66.01: Morbid (severe) obesity due to excess calories) Diet and exercise, weight essentially stable with 2 pound increase in 6 (more content not included)... Normal [facility] Comment on above: Result Comment: Elec tronically Signed By: Christopher WELLS DO, FAAFP\francisco\Date and Time Signed: 12/18/22 09:05 EDT Patient Educationon 12-19-19 Patient Education Dermatology Venous Ulcer A venous ulcer is a shallow sore on your lower leg. Venous ulcer is the most common type of lower leg ulcer. You may have venous ulcers on one leg or on both legs. This condition most often develops around your ankles. This type of ulcer may last for a long time (chronic ulcer) or it may return often (recurrent ulcer). What are the causes? This condition is caused by poor blood flow in your legs. The poor flow causes blood to pool in your legs. This can break the skin, causing an ulcer. What increases the risk? You are more likely to develop this condition if: ? You are 65 years of age or older. ? You are female. ? You are overweight. ? You are not active. ? You have had a leg ulcer in the past. ? You have varicose veins. ? You have clots in your lower leg veins (deep vein thrombosis). ? You have inflammation of your leg veins (phlebitis). ? You have recently been . ? You smoke. What are the signs or symptoms? The main symptom of this condition is an open sore near your ankle. Other symptoms may include: ? Swelling. ? Thick skin. ? Fluid coming from the ulcer. ? Bleeding. ? Itching. ? Pain and swelling. This gets worse when you stand up and feels better when you raise your leg. ? Blotchy skin. ? Dark skin. How is this treated? This condition may be treated by: ? Keeping your leg raised (elevated). ? Wearing a type of bandage or stocking to keep pressure (compression) on the veins of your leg. ? Taking medicines, including antibiotic medicines. ? Cleaning your ulcer and removing any tissue from the wound. ? Using bandages and wraps that have medicines in them to cover your ulcer. ? Closing the wound using a piece of skin taken from another area of your body (graft). Follow these instructions at home: Medicines ? Take or apply yuyd-qlf-unatywq and prescription medicines only as told by your doctor. ? If you were prescribed an antibiotic medicine, take it as told by your doctor. Do not stop using the antibiotic even if you start to feel better. ? Ask your doctor if you should take aspirin before long trips. Wound care ? Follow instructions from your doctor about how to take care of your wound. Make sure you: ? Wash your hands with soap and water before and after you change your bandage (dressing). If you cannot use soap and water, use hand body presser. ? Change your bandage as told by your doctor. ? If you had a skin graft, leave stitches (sutures) in place. These may need to stay in place for 2 weeks or longer. ? Ask when you should remove your bandage. If your bandage is dry and sticks to your leg when you try to remove it, moisten or wet the bandage with saline solution or water to make it easier to remove. ? Once your bandage is off, check your wound each day for signs of infection. Have a caregiver do this for you if you are not able to do it yourself. Check for: ? More redness, swelling, or pain. ? More fluid or blood. ? Warmth. ? Pus or a bad smell. Activity ? Do not sit for a long time without moving. Get up to take short walks every 1?2 hours. This is important. Ask for help if you feel weak or unsteady. ? Ask your doctor what level of activity is safe for you. ? Rest with your legs raised during the day. If you can, keep your legs above the level of your heart for 30 minutes, 3?4 times a day, or as told by your doctor. ? Do not sit with your legs crossed. General instructions ? Wear elastic stockings, compression stockings, or support hose as told by your doctor. ? Raise the foot of your bed as told by your doctor. ? Do not use any products that contain nicotine or tobacco, such as cigarettes, e-cigarettes, and chewing tobacco. If you need help quitting, ask your doctor. ? Keep all follow-up visits as told by your doctor. This is important. Contact a doctor if: ? Your ulcer is getting larger or is not healing. ? Your pain gets worse. Get help right away if: ? You have more redness, swelling, or pain around your ulcer. ? You have more fluid or blood coming from your ulcer. ? Your ulcer feels warm to the touch. ? You have pus or a bad smell coming from your ulcer. ? You have a fever. Summary ? A venous ulcer is a shallow sore on your lower leg. ? Follow instructions from your doctor about how to take care of your wound. ? Check your wound each day for signs of infection. ? Take tpyv-wkm-gdfolrr and prescription medicines only as told by your doctor. ? Keep all follow-up visits as told by your doctor. This is important. This information is not intended to replace advice given to you by your health care provider. Make sure you discuss any questions you have with your health care provider. Document Revised: 12/26/2021 Document Reviewed: 12/26/2021 [employer] Patient Education ? 2022 [employer] Normal [facility] Consultation Noteon 12-16-19 Consultation Note [id number] D:127 Normal [facility] MRI Spine Lumbar w/o Contras ton 12-09-2022 MRI Spine Lumbar w/o Contrast Exam Date/Time: 12/08/2022 09:13 EDT Reason for Exam: M48.061, M51.37 Report IMPRESSION: DEGENERATIVE CHANGES OF THE LUMBAR SPINE DETAILED. EDEMA IS PRESENT OF THE SACRUM ADJACENT TO THE BILATERAL SACROILIAC JOINTS. MRI OF THE SACRUM WITHOUT CONTRAST IS RECOMMENDED TO FURTHER EVALUATE. HEPATOMEGALY. EXAM: MRI of the lumbar spine without contrast History: Low back pain Technique: Multiplanar multisequence MRI of the lumbar spine was obtained without intravenous contrast. Comparison: None available Findings: The conus medullaris ends normally. The alignment of the lumbar spine is anatomic. The vertebral body heights are well maintained. There is no aggressive bone marrow signal abnormality. Disc desiccation at L1-2 through L4-L5. Intervertebral disc heights are maintained. L1-L2: No significant disc bulge. Mild facet arthropathy. No neuroforaminal or spinal canal stenosis. L2-L3: Small disc bulge. Mild facet arthropathy. Ligamentum flavum thickening. Mild spinal canal stenosis. Mild right and moderate left neuroforaminal stenosis. L3-L4: Small disc bulge. Moderate facet arthropathy. Ligamentum flavum thickening. Moderate spinal canal stenosis. Moderate bilateral neuroforaminal stenosis. L4-L5: Approximately 2-3 mm of anterolisthesis of L4 on L5 secondary to advanced facet arthropathy. Small disc bulge. Mild bilateral neuroforaminal stenosis. Mild spinal canal stenosis. L5-S1: No significant disc bulge. Mild facet arthropathy. No neuroforaminal or spinal canal stenosis. Edema is present within the sacrum adjacent to the bilateral sacroiliac joints. Visualized paravertebral soft tissues appear within normal limits as visualized. The Report liver measures 21.5 cm in craniocaudal length on the localizer images. Ordering Provider: Catrachito Wolf FINAL REPORT Dictated: 12/09/2022 1:35 pm Juan Flynn DO Signed (Electronic Signature): 12/09/2022 1:35 pm Signed by: Juan Flynn DO Transcribed by: KATEY Technologist: NUBIA Technical Comments None [facility] Consent for Treatmenton 11-15 Consent for Treatment [id number] D:[address] [facility] RAD - MRI Screening Formon 0 12-08-2022 RAD - MRI Screening Form [id number] CD:[address] [facility] Physician Orderon 11-26-2022 Physician Order [id number] :[address] [facility] Physician Order [id number] :[address] [facility] BD Bone Density DEXAon 11-25 BD Bone Density DEXA Exam Date/Time: 11/24/2022 14:32 EDT Reason for Exam: Z28.39 Other primary ovarian failure;Menopausal Report IMPRESSION: OSTEOPENIA. The 10 year probability (FRAX) of a major osteoporotic fracture based on the left femoral neck bone marrow density is: 18.2%, and hip fracture 3.9%. The NOF/ISD guideline recommend FRAX for postmenopausal patients (not on treatment) if the lowest T-score for Spine(L1-L4), Femur Neck or Femur Total indicates low bone density (T score -1.0 to -2.5, osteopenia). EXAM: BD Bone Density DEXA DATE: 11/24/2022 1:55 PM CLINICAL HISTORY: Menopausal, Z28.39 Other primary ovarian failure. COMPARISON: 01/17/2011 COMMENTS: The lumbar spine and both hips were scanned. The mean bone mineral density from L1 to L4 is 1.300 g/cm2 and this value is 1.0 standard of deviation above the standard reference value for a young adult. Likely artifactual secondary to degenerative sclerosis. Bone mineral density of the left femoral neck is 0.756 g/cm2 and this value is -2.0 standard of deviation below the standard reference value. Bone mineral density of the right femoral neck is 0.866 g/cm2 and this value is -1.2 standard of deviation below the standard reference value. The lowest value(s) meet WHO criteria for osteopenia. Compared to prior study from 2011, 5.1% increase in BMD of the lumbar spine, 19.1% decrease in BMD of the left femoral neck and 4.4% decrease in BMD of the right femoral neck. RECOMMENDATIONS: 1. All patients should optimize her calcium and vitamin D intake. 2. Consider FDA-approved medical therapies in postmenopausal women and minimal age 50 years and older, based on the following: - hip or vertebral (clinical or morphometric) fracture. Report - T-score less than or equal to -2.5 at the femoral neck or spine after the appropriate evaluation to exclude secondary causes. - Low bone density (T score between -1.0 and -2.5 at the femoral neck or spine) and a 10 year probability of hip fracture greater than or equal to 3% or a 10-year probability of a major osteoporosis-related fracture greater than or equal to 20% based on FRAX calculation. - Clinician judgment and/or patient preferences may indicate treatment for people with 10 year fracture probability above or below these levels. - Further guidance on treatment can be found at the National Osteoporosis Foundation's website: bonesource.org 3. Patients with diagnosis of osteoporosis or high risk for fracture should have regular bone mineral density tests. For patients eligible for Medicare, routine testing is allowed once every 2 years. Testing frequency can be increased to 1 year for patient's history of rapidly progressing disease, those who are receiving or discontinuing medical therapy to restore bone mass or have additional risk factors. Ordering Provider: Christopher WELLS FINAL REPORT Dictated: 11/25/2022 2:37 pm Jalil Booth MD Signed (Electronic Signature): 11/25/2022 2:37 pm Signed by: Jalil Booth MD Transcribed by: KATEY Technologist: AP Carlos [facility] [place] Mamm Screen w/CAD if perf and 3D Bilon 11-25-2022 [place] Mamm Screen w/CAD if perf and 3D Francis Exam Date/Time: 11/24/2022 14:52 EDT Reason for Exam: Z12.31 Encounter for screening mammogram for malignant neoplasm of breast;Screening Report IMPRESSION: BIRADS 2 BENIGN FINDINGS, NORMAL INTERVAL FOLLOW-UP.12 MONTH RECALL. CLINICAL HISTORY: Screening, Z12.31 Encounter for screening mammogram for malignant neoplasm of breast. COMPARISON: 06/29/2015. COMMENT: Routine views and tomosynthesis views of both breasts were obtained. There are scattered areas of fibroglandular density. There are some scattered benign-appearing breast calcifications bilaterally. There is a small stable nodular density in the right breast. No dominant breast mass nor neoplastic calcifications are identified in either breast. The examination was reviewed with Computer Aided Detection. Breast Density: No Mammography is very important to your health. The current [employer] and National [employer] guidelines recommends annual mammography beginning at age 40. This facility utilizes a reminder system to ensure all patients receive reminder notifications at the appropriate time based on the recommendations of this exam. Board Certified Radiologists. Accredited by the ACR and FDA. Ordering Provider: Christopher WELSL FINAL REPORT Dictated: 11/25/2022 2:25 pm Kodak Khan M.D. Signed (Electronic Signature): 11/25/2022 2:25 pm Signed by: Kodak Khan M.D. Transcribed by: KATEY Technologist: TRISTAN Assessment: BI-RADS Category 2-Benign finding Recommendation: Normal interval follow-up Normal [facility] Consent for Treatmenton 11-14 Consent for Treatment [id number] D:127 Normal [facility] Consultation Noteon 11-24-19 Consultation Note [id number] :127 Normal [facility] Consultation Noteon 11-14-19 Consultation Note [id number] D:127 Normal [facility] Family Medicine Office/Clini c Noteon 11-06-2022 Family Medicine Office/Clinic Note Chief Complaint Patient states she has been having hip pain and struggles to get in and out of car and walk for more than 10 mins. History of Present Illness Here for follow up Have you had any ER visits or any hospitalizations since last visit? no Are you compliant with your medications and no difficulty affording your medications? yes Do you have side effects from the medication? no Are you compliant with your diet? yes Do you exercise? yes Do you have any of the following symptoms? Chest pain? no Palpitations? no DAILEY/SOB? no Orthopnea? no PND? no Edema? no Have you had any recent cardiopulmonary testing? no L hip pain after walking 10 min and some weakness, I take WC to [place] so I walk and do Wheel Chair. Pain stays in the hip. After walking approximately 10 minutes at [place] patient needs to get into wheelchair secondary to the pain in her left hip. Patient reports no poor color no radiation of pain into left thigh and nor leg nor foot. Diabetes is now managed per Dr. Ruggiero, her last A1c at Dr. Ruggiero's office was 8.9 and the 1 prior to that was 13. 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 Case discussed with Dr. Maurilio Castro by phone a few days ago, please see documented phone conversation. Dr. Castro believes left hip pain is orthopedic in nature and are coming from back and desires me to evaluate her today. Patient had revascularization procedure by Dr. Castro and believes that she may eventually need another revascularization procedure, however not urgent whatsoever as her feet are warm and pink. He desires the left hip to be corrected prior to any revascularize procedure which can wait months down the road per Dr. Castro. Review of Systems PHQ Score Initial Depression Screen Score: 0 ROS - Provider Constitutional: no fever, no chills, no sweats, no weakness. Skin: no Jaundice, no rash, no lesions, no petechiae. ENMT: no ear pain, no sore throat, no congestion, no hoarseness. Respiratory: no shortness of breath, no cough, no orthopnea, no wheezing. Cardiovascular: no chest pain, no palpitations, no edema. Gastrointestinal: no nausea, no vomiting, no diarrhea, no GI bleeding.noconstipation noheartburn Genitourinary: no dysuria, no hematuria, no discharge, no pain.nofreq/urgency Musculoskeletal: yes back pain, no trauma.yesjoint pain Neurologic: no headache, no dizziness, no numbness, no weakness. Psychiatric: no sleeping problems, no irritability, no mood swings/depression. Heme/Lymph: no bleeding tendency, no bruising tendency, no petechiae, no swollen lymph nodes no Allergy/Imunology no seasonal allergies, no food allergies, no recurrent infections, no impaired immunity. Additional ROS info: Except as noted in the above Review of Systems and in the History of Present Illness all other systems have been reviewed and are negative or noncontributory. Physical Exam Vitals & Measurements T: 36.6 ?C(Oral) HR: 68(Peripheral) RR: 18 BP: 120/70 SpO2: 97% HT: 65 in HT: 165 cm WT: 98.5 kg WT: 216.7 lb BMI: 36.18 General: Well developed, well nourished, in no acute distress Mouth: Mucous membranes moist. Normal oropharynx, and posterior pharynx without lesions or exudates. Tongue normal Neck: Neck supple. No masses or palpable cervical nodes. Trachea midline. Thyroid without nodules, masses, tenderness, or enlargement Lungs: Normal respiratory effort and clear to auscultation Cardio: Regular rate and rhythm, normal S1 and S2, no murmur, no rub Abdomen: Soft, non-distended, non-tender. no G/R/S/Masses Musculoskeletal: Normal internal and external rotation of right hip negative logroll. Negative logroll of the left hip except with pain at end range of motion with internal and external rotation. Patient cannot fully extend left hip and has decreased range of motion with both internal and external rotation of left hip as compared to right. Gait is normal and not antalgic. She can step normally up to table from floor. Extremity: No clubbing, cyanosis, edema, or deformity, with normal ROM in both upper and lower bilateral extremities Neurologic: Grossly normal Skin: No rashes, ulcerations, or suspicious lesions Mental Status: Alert and oriented x3. Normal mood and affect Diabetic Foot Exam Bunions/Foot Deformity: Left - Normal, Right - Normal Foot Exam Findings: Feet warm with excellent color Assessment/Plan 1. Enthesopathy of left hip region (M76.892: Other specified enthesopathies of left lower limb, excluding foot) We will refer to orthopedics here at [facility]. Physical therapy [facility]. Patient defers x-rays and well allow access orthopedics to perform at time of evaluation. Discussed possibility of bursitis and possible injection under fluoroscopy via orthopedics Ordered: [facility] External Ambulatory Referral [facility] Outpatient Physical Therapy Evaluate Patient, Develop a Plan of Care, & Implement Plan (more content not included)... Normal [facility] Comment on above: Result Comment: Elec tronically Signed By: Christopher WELLS DO, FAAFP\Date and Time Signed: 11/06/22 08:56 EDT Patient Educationon 11-07-19 Patient Education Orthopedics Bursitis Bursitis is when the fluid-filled sac (bursa) that covers and protects a joint is swollen (inflamed). Bursitis is most common near joints such as the knees, elbows, hips, and shoulders. It can cause pain and stiffness. What are the causes? ? An injury to a joint area. ? Repeated use of a joint. ? Infection. ? Certain conditions that cause swelling. What increases the risk? ? Putting stress on a joint over and over again. ? Having a condition that weakens your body's defense system (immune system). ? Doing any of these often: ? Lifting and reaching overhead. ? Kneeling or leaning on hard surfaces. ? Doing activities that have a motion that you do over and over again. This includes running and walking. What are the signs or symptoms? Common symptoms of this condition include: ? Pain that gets worse when you move the affected body part or use it to support your body weight. ? Irritation and swelling (inflammation). ? Stiffness. Other symptoms include: ? Redness. ? Swelling. ? Tenderness. ? Warmth. ? Pain that stays after rest. ? Fever or chills if there is an infection. How is this treated? This condition can often be treated at home with: ? Rest. ? Ice. ? Wrapping the area with an elastic bandage (compression). ? Keeping the affected area raised (elevation). Other treatments may include: ? Medicine for pain and swelling. ? Shots of medicine to the area to lessen swelling. ? Draining fluid out of the bursa. ? Antibiotic medicine for infection. ? Using a splint, brace, wrap, pads, or walking aid. ? Therapy if pain continues or you have limited movement. ? Surgery. Follow these instructions at home: Medicines ? Take [id number] and prescription medicines only as told by your doctor. ? If you were prescribed an antibiotic medicine, take it as told by your doctor. Do not stop taking it even if you start to feel better. Managing pain, stiffness, and swelling ? Raise the injured area above the level of your heart while you are sitting or lying down. ? If told, put ice on the affected area. To do this: ? Put ice in a plastic bag. ? Place a towel between your skin and the bag, or between your splint or brace and the bag. ? Leave the ice on for 20 minutes, 2?3 times a day. ? Take off the ice if your skin turns bright red. This is very important. If you cannot feel pain, heat, or cold, you have a greater risk of damage to the area. ? If told, put heat on the affected area. Do this as often as told by your doctor. Use the heat source that your doctor recommends, such as a moist heat pack or a heating pad. ? Place a towel between your skin and the heat source. ? Leave the heat on for 20?30 minutes. ? Take off the heat if your skin turns bright red. This is very important. If you cannot feel pain, heat, or cold, you have a greater risk of getting burned. General instructions ? Rest the affected area as told by your doctor. ? Avoid doing things that make the pain worse. ? Use a splint, brace, pad, wrap, or walking aid as told by your doctor. ? Keep all follow-up visits. Preventing symptoms ? Wear knee pads if you kneel often. ? Wear running or walking shoes that fit you well. ? Take a lot of breaks during activities that involve doing the same movements again and again. ? Before you do any activity that takes a lot of effort, get your body ready by stretching. ? Stay at a healthy weight or lose weight if your doctor says you should. If you need help doing this, ask your doctor. ? Exercise often. If you start any new physical activity, do it slowly. ? Work with your physical or occupational therapist and doctor to find what caused the bursitis. Contact a doctor if: ? You have a fever or chills. ? You have symptoms that do not get better with treatment. ? You have pain or swelling that: ? Gets worse. ? Goes away and then comes back. ? You have pus coming from the affected area. ? You have redness around the affected area. ? The affected area is warm to the touch. Summary ? Bursitis is when the fluid-filled sac (bursa) that covers and protects a joint is swollen. ? Rest the affected area as told by your doctor. ? Avoid doing things that make the pain worse. ? Put ice on the affected area as told by your doctor. This information is not intended to replace advice given to you by your health care provider. Make sure you discuss any questions you have with your health care provider. Document Revised: 02/25/2022 Document Reviewed: 02/25/2022 [employer] Patient Education ? 2022 [employer] Normal [facility] Physician Referralon 023 Physician Referral [id number] CD:127 Normal [facility] US arterial duplex LE LTon 0 11-04-2022 US arterial [place] [address] Ultrasound Report Signed Patient: Evon Corcoran MR#: [id number] 844 : 1950 Acct:[id number] Age/Sex: 72 / F ADM Date: 11/04/22 Loc: [facility] Room: Type: [facility] Attending Dr: Renetta Barahona [employer]N-C Ordering Provider: Renetta Barahona APRN Date of Service: 11/04/22 US/US arterial duplex LE LT: I70.212 Copies to: Renetta Barahona APRN Arterial duplex examination left lower extremity Indication for study: Peripheral vascular occlusive disease status post endovascular intervention PROCEDURE: Color-flow duplex scanning is used to interrogate the patient's left femoral-popliteal segment. The inflow velocity in the common femoral artery is 151 cm/s. The first portion of the left superficial femoral artery is open at this time with a velocity 105 cm/s. The SFA then occludes down to its mid segment where there is been a prior stent. Outflow velocities are the range of 60-70 and the popliteal artery. The ankle-brachial index is 0.36. US/US arterial duplex LE LT IMPRESSION: Occluded left superficial femoral artery stent with severe peripheral vascular occlusive disease at rest Impression dictated by: Miguel Membreno M.D.11/04/2022 1:09 PM Dictation Location: [place] [address] Tech: Adina Zuñiga Transcribed By: RICH 11/04/22 1309 Dictated By: Miguel Membreno MD 11/04/22 1307 Signed By: 11/04/22 1309 Normal [facility] US ankle/arm indiceson 11-03 US ankle/arm indices [facility] [place] [address] [place] [address] Ultrasound Report Signed Patient: Evon Corcoran MR#: [id number] 844 : 1950 Acct:[id number] Age/Sex: 72 / F ADM Date: 11/03/22 Loc: [facility] Room: Type: [facility] Attending Dr: Miguel Membreno MD Ordering Provider: Miguel Membreno MD Date of Service: 11/03/22 US/US ankle/arm indices: I70.213 Copies to: Miguel Membreno MD LOWER EXTREMITY SEGMENTAL ARTERIAL DOPSCAN (PVR) INDICATION: Known peripheral vascular occlusive disease status post left leg endovascular intervention PROCEDURE: Right arm blood pressure is 215 , left is 197 . Pressures at the right ankle are 100 using the posterior tibial artery, and 109 using the dorsalis pedis artery with ankle-brachial index of 0.35,0.47 0.33,0.51 . Pressures at the left ankle are 76 using the posterior tibial artery, and 71 with ankle-brachial index of 0.35,0.47 0.33 . Wave forms by plethysmography are mildly blunted on the right and moderate to severely blunted on the left US/US ankle/arm indices IMPRESSION: Moderate peripheral vascular occlusive disease in the right lower extremity. Severe peripheral vascular occlusive disease in the left lower extremity.. Impression dictated by: Miguel Membreno M.D.11/03/2022 10:26 AM Dictation Location: [facility] Tech: Melita Pike Transcribed By: RICH 11/03/22 1026 Dictated By: Miguel Membreno MD 11/03/22 1024 Signed By: 11/03/22 1026 [facility] CHEMISTRYOrdered By: SYSTEM SYSTEM on 10-31-2022 Albumin [Mass/Vol] 3.4 g/dL Normal 3.3 - 5.0 gm/dL [facility] Anion gap [Moles/Vol] 11 mmol/L Normal 6 - 16 mEq/L [facility] Calcium [Mass/Vol] 8.4 mg/dL Low 8.9 - 11.1 mg/dL [facility] Chloride [Moles/Vol] 104 mmol/L Normal 101 - 111 mmol/L [facility] CO2 [Moles/Vol] 27 mmol/L Normal 21 - 31 mmol/L [facility] Creatinine [Mass/Vol] 1.3 mg/dL Normal 0.5 - 1.3 mg/dL [facility] GFR/1.73 sq M.predicted among non-blacks MDRD (S/P/Bld) [Vol rate/Area] 43 mL/min/1.73 m2 Low >=59mL/min/1.73 m2 [facility] Chem S Glucose [Mass/Vol] 316 mg/dL High 55 - 199 mg/dL [facility] Phosphate [Mass/Vol] 3.8 mg/dL Normal 1.9 - 4.6 mg/dL [facility] Potassium [Moles/Vol] 4.2 mmol/L Normal 3.5 - 5.3 mmol/L [facility] Sodium [Moles/Vol] 138 mmol/L Normal 135 - 145 mmol/L [facility] Urea nitrogen [Mass/Vol] 28 mg/dL High 5 - 21 mg/dL [facility] Urea nitrogen/Creatinine [Mass ratio] 22 mg/mg High 10 - 20 [facility] CHEMISTRYOrdered By: Jeniffer Rosas on 10-31-2022 Albumin Elph (U) [Mass fraction] 8.4 mg/dL Invalid Interpretation Code [facility] Creatinine (U) [Mass/Vol] 132.6 mg/dL Invalid Interpretation Code [facility] U Prot/Creat Ratio 63.30 mg/gm Cr Normal 0.00 - 200.00 mg/gm Cr [facility] Rem[facility] Consent for Treatmenton 10-14 Consent for Treatment [id number] D:127 Normal [facility] Physician Orderon 10-31-2022 Physician Order [id number] CD:127 Normal [facility] Renal Panelon 10-31-2022 Albumin [Mass/Vol] 3.4 g/dL Normal 3.3-5.0 [facility] Comment on above: Performed By: #### 1 [id number], [id number] #### [facility] [address] [place] [address] Anion gap [Moles/Vol] 11 mmol/L Normal 6-16 [facility] Comment on above: Performed By: #### 1 [id number], [id number] #### [facility] [address] [place] [address] Calcium [Mass/Vol] 8.4 mg/dL Low 8.9-11.1 [facility] Comment on above: Performed By: #### 1 [id number], [id number] #### [facility] [address] [place] [address] Chloride [Moles/Vol] 104 mmol/L Normal 101-111 [facility] Comment on above: Performed By: #### 1 [id number], [id number] #### [facility] [address] [place] [address] CO2 [Moles/Vol] 27 mmol/L Normal 21-31 [facility] Comment on above: Performed By: #### 1 [id number], [id number] #### [facility] [address] [place] [address] Creatinine [Mass/Vol] 1.3 mg/dL Normal 0.5-1.3 [facility] Comment on above: Performed By: #### 1 [id number], [id number] #### [facility] [address] [place] [address] Glucose [Mass/Vol] 316 mg/dL High 55-199 [facility] Comment on above: Result Comment: If t his glucose result represents a fasting glucose, interpretation should refer to the following reference range: 55-99 mg/dL Performed By: #### 1 [id number], [id number] #### [facility] [address] [place] [address] Phosphate [Mass/Vol] 3.8 mg/dL Normal 1.9-4.6 [facility] Comment on above: Performed By: #### 1 [id number], [id number] #### [facility] [address] [place] [address] Potassium [Moles/Vol] 4.2 mmol/L Normal 3.5-5.3 [facility] Comment on above: Performed By: #### 1 [id number], [id number] #### [facility] [address] [place] [address] Sodium [Moles/Vol] 138 mmol/L Normal 135-145 [facility] Comment on above: Performed By: #### 1 [id number], [id number] #### [facility] [address] [place] [address] Urea nitrogen [Mass/Vol] 28 mg/dL High 5-21 [facility] Comment on above: Performed By: #### 1 [id number], [id number] #### [facility] [address] [place] [address] Urea nitrogen/Creatinine [Mass ratio] 22 No Units High 10-20 [facility] Comment on above: Performed By: #### 1 [id number], [id number] #### [facility] [address] [place] [address] U Protein/Creat Ratioon 10-14 Albumin Elph (U) [Mass fraction] 8.4 mg/dL Invalid Interpretation Code [facility] Comment on above: Result Comment: The reference range and other method performance specifications have not been established for this test; results should be integrated into the clinical context for interpretation. Performed By: #### 1 [id number], [id number] #### [facility] [address] [place] [address] Creatinine (U) [Mass/Vol] 132.6 mg/dL Invalid Interpretation Code [facility] Comment on above: Result Comment: The reference range and other method performance specifications have not been established for this test; results should be integrated into the clinical context for interpretation. Performed By: #### 1 [id number], [id number] #### [facility] [address] [place] [address] U Prot/Creat Ratio 63.30 mg/gm Cr Normal .00-200.00 [facility] Comment on above: Performed By: #### 1 [id number], [id number] #### [facility] [address] [place] [address] URINALYSISOrdered By: Rosa Chacon on 10-31-2022 Bacteria LM Ql (Urine sed) 1+ /HPF Invalid Interpretation Code Trace/HPF [facility] UA Auto SS Bilirubin Ql (U) Negative (10/31/22 7:33 AM) Normal Negative [facility] UA Auto SS Clarity (U) Clear (10/31/22 7:33 AM) Normal Clear [facility] UA Auto SS Color (U) Yellow (10/31/22 7:33 AM) Normal Yellow [facility] UA Auto SS Epithelial cells.squamous LM.HPF (Urine sed) [#/Area] 0-2 /HPF Normal 0-2/HPF [facility] UA Auto SS Glucose Test strip (U) [Mass/Vol] 2+ *ABN* (10/31/22 7:33 AM) Invalid Interpretation Code Negative [facility] UA Auto SS Hemoglobin Ql (U) Negative (10/31/22 7:33 AM) Normal Negative [facility] UA Auto SS Ketones (U) [Mass/Vol] Negative (10/31/22 7:33 AM) Normal Negative [facility] UA Auto SS Eakly.plasma/Lith ium.RBC (Bld) [Mass ratio] 0-3 /HPF Normal 0-3/HPF [facility] UA Auto SS Nitrite Ql (U) Negative (10/31/22 7:33 AM) Normal Negative [facility] UA Auto SS pH (U) 6.0 *NA* (10/31/22 7:33 AM) Invalid Interpretation Code 5.0 - 9.0 [facility] UA Auto SS Protein (U) [Mass/Vol] Negative (10/31/22 7:33 AM) Normal Negative [facility] UA Auto SS Specific gravity (U) [Rel density] 1.025 *NA* (10/31/22 7:33 AM) Invalid Interpretation Code 1.005 - 1.030 [facility] UA Auto SS UA Spec Desc Clean Catch (10/31/22 7:33 AM) Normal [facility] UA Auto SS Urobilinogen Qn (U) 0.9453537 {Donell'U}/dL Normal 0.0 - 1.0 EU/dL [facility] UA Auto SS WBC Auto Ql (U) 1+ *ABN* (10/31/22 7:33 AM) Invalid Interpretation Code Negative [facility] UA Auto SS WBC LM.HPF (Urine sed) [#/Area] 6-15 /HPF Invalid Interpretation Code 0-5/HPF [facility] UA Auto SS Urinalysison 10-31-2022 Bacteria LM Ql (Urine sed) 1+ /HPF Abnormal Trace [facility] Comment on above: Performed By: #### 1 [id number], [id number] #### [facility] [address] [place] [address] Bilirubin Ql (U) Negative Normal Negative [facility] Comment on above: Performed By: #### 1 [id number], [id number] #### [facility] [address] [place] [address] Clarity (U) CLEAR Normal Clear [facility] Comment on above: Performed By: #### 1 [id number], [id number] #### [facility] [address] [place] [address] Color (U) YELLOW Normal Yellow [facility] Comment on above: Performed By: #### 1 [id number], [id number] #### [facility] [address] [place] [address] Epithelial cells.squamous LM.HPF (Urine sed) [#/Area] 0-2 Normal 0-2 [facility] Comment on above: Performed By: #### 1 [id number], [id number] #### [facility] [address] [place] [address] Glucose Test strip (U) [Mass/Vol] 2+ Abnormal Negative [facility] Comment on above: Performed By: #### 1 [id number], [id number] #### [facility] [address] [place] [address] Hemoglobin Ql (U) Negative Normal Negative [facility] Comment on above: Performed By: #### 1 [id number], [id number] #### [facility] [address] [place] [address] Ketones (U) [Mass/Vol] Negative Normal Negative [facility] Comment on above: Performed By: #### 1 [id number], [id number] #### [facility] [address] [place] [address] Eakly.plasma/Lith ium.RBC (Bld) [Mass ratio] 0-3 Normal 0-3 [facility] Comment on above: Performed By: #### 1 [id number], [id number] #### [facility] [address] [place] [address] Nitrite Ql (U) Negative Normal Negative [facility] Comment on above: Performed By: #### 1 [id number], [id number] #### [facility] [address] [place] [address] pH (U) 6.0 [pH] Invalid Interpretation Code 5.0-9.0 [facility] Comment on above: Performed By: #### 1 [id number], [id number] #### [facility] [address] [place] [address] Protein (U) [Mass/Vol] Negative Normal Negative [facility] Comment on above: Performed By: #### 1 [id number], [id number] #### [facility] [address] [place] [address] Specific gravity (U) [Rel density] 1.025 Invalid Interpretation Code 1.005-1.030 [facility] Comment on above: Performed By: #### 1 [id number], [id number] #### [facility] [address] [place] [address] Type of Urine collection method Clean Catch Normal [facility] Comment on above: Performed By: #### 1 [id number], [id number] #### [facility] [address] [place] [address] Urobilinogen Qn (U) 0.2 {Donell'U}/dL Normal 0.0-1.0 [facility] Comment on above: Performed By: #### 1 [id number], [id number] #### [facility] [address] [place] [address] WBC Auto Ql (U) 1+ Abnormal Negative [facility] Comment on above: Performed By: #### 1 [id number], [id number] #### [facility] [address] [place] [id number] WBC LM.HPF (Urine sed) [#/Area] 6-15 Abnormal 0-5 [facility] Comment on above: Performed By: #### 1 [id number], [id number] #### [facility] [address] [place] [id number] eGFRon 10-31-2022 GFR/1.73 sq M.predicted among non-blacks MDRD (S/P/Bld) [Vol rate/Area] 43 mL/min/1.73 m2 Low >=59 [facility] Comment on above: Order Comment: Order added by Discern Expert. Result Comment: Geodetic Engineer jin kidney disease could be indicated at eGFR's of less than 60 mL/min/1.73m2. Kidney failure is indicated at less than 15 mL/min/1.73m2. Performed By: #### 1 [id number], [id number] #### [facility] [address] [place] [id number] RAD - Ultrasound Reporton RAD - Ultrasound Report [id number]#1.00C D:127 Normal [facility] Retail - Clinical Noteon Retail - Clinical Note [id number]#1.00C D:127 Normal [facility] VAS LAB Carotid Artery Dupl ex Ultrasounon 09-17-2022 VASC LAB Carotid Artery Duplex Ultrasoun [address], [address], [place] [address] Vascular Lab Report Carotid Artery Duplex Ultrasound Patient Name: EVON Linda Physician: [id number] Fariha Guidry MD, [facility] Study Date: 09/17/2022 Referring FARIHA GUIDRY Physician: MRN/PID: [id number] PCP: Christopher Wells DO Accession/Order#: [id number] CC Report to: Date of : 1950 Technologist: PRAVEENA Gender: F Technologist 2: Admission Status: Outpatient Location Performed: [facility] Diagnosis/ICD: F68-Gxffwmdkq and giddiness; I73.9-Peripheral vascular disease, unspecified Indication: CAD, PTCA, High Risk Medication Use, Vascular Disease, Diabetes, HTN, Hyperlipidemia, CKD-Stage III, DVT, MORALES, Obesity Procedure/CPT: 17354 Cerebrovascular Carotid Duplex scan complete-[id number] CONCLUSIONS: Right Carotid: Findings are consistent with less than 50% stenosis of the right proximal internal carotid artery. Laminar flow seen by color Doppler. Right external carotid artery appears patent with no evidence of stenosis. No evidence of hemodynamically significant stenosis of the right common carotid artery. The right vertebral artery is patent with antegrade flow. Left Carotid: Findings are consistent with less than 50% stenosis of the left proximal internal carotid artery. Laminar flow seen by color Doppler. Left external carotid artery appears patent with no evidence of stenosis. No evidence of hemodynamically significant stenosis of the left common carotid artery. The left vertebral artery is patent with antegrade flow. Imaging AND Doppler Findings: Right Plaque Morph: No plaque identified in the right carotid artery. Left Plaque Morph: No plaque identified in the left carotid artery. Right Left PSV EDV PSV EDV 78 cm/s 15 cm/s CCA P 93 cm/s 17 cm/s 71 cm/s 14 cm/s CCA M 67 cm/s 14 cm/s 52 cm/s 13 cm/s CCA D 55 cm/s 18 cm/s 72 cm/s 17 cm/s ICA P 111 cm/s 21 cm/s 88 cm/s 31 cm/s ICA M 69 cm/s 20 cm/s 90 cm/s 35 cm/s ICA D 45 cm/s 13 cm/s 56 cm/s ECA 45 cm/s 31 cm/s Vertebral 37 cm/s Right Left ICA/CCA Ratio 1.4 2.0 [id number] Fariha Guidry MD, FACC Final Normal [facility] VASC LAB Carotid Artery Dupl ex Ultrasoundon 09-17-2022 US.doppler Carotid arteries -[facility]Sandu feliz [address] DO Work Phone: Gastroenterology Office/Clin ic Noteon 09-10-2022 Gastroenterology Office/Clinic Note Chief Complaint Diarrhea HPI Staff This is a 72 year old female who presents today for a follow up from 06/11/22 for hemorrhoids, diarrhea and rectal bleeding. Patient states that diarrhea is now around 2 days a week. History of Present Illness Patient is a 72-year-old female who presents for follow-up. Patient was previously evaluated 06/11/2022 and has PMH of DM, type 2, HLD, HTN- managed by patient's PCP. Patient with history of colon polyps. Patient had previously reported having change in bowel habits with watery diarrhea that was occurring 2 times a week. She also previously reported having off-and-on bright red blood per rectum on toilet paper with wiping. Patient previously reported history of cholecystectomy 10 years ago. Previous labs 04/2022 revealed normal H&H, elevated BUN, normal calcium?patient to follow-up with PCP regarding, normal creatinine, normal liver enzymes. Patient had previous stool testing 04/2022 that was negative for infectious process. Previous colonoscopy 05/21/2022 revealed normal colonic mucosa, hyperplastic polyp removed from transverse colon, hemorrhoids, random colon biopsy revealed lymphoid aggregates within normal limits?patient is due for repeat colonoscopy 2029. Patient reported during most recent visit with me that she was having watery diarrhea 2 times a week over the last 3 to 4 years. She had reported she was previously on Questran and did not notice this medication helping her diarrhea much. Patient was educated regarding use of fiber supplementation daily. During today's visit, patient reports she is having diarrhea 2 times a week that she reports has improved since starting fiber supplementation 1 capsule daily over the last 3 months. She explains she was previously having diarrhea 3-4 times a week. She explains BRBPR has improved and is occurring less often. She reports when she has diarrhea, she will experience BRBPR on toilet paper with wiping. She reports Questran did not previously help her diarrhea. Denies difficulty with hemorrhoids. Denies rectal pain, black/bloody stools, fevers/chills, nausea/vomiting, and denies abdominal pain. Denies having any other GI complaints. Review of Systems PHQ Score Initial Depression Screen Score: 0 ROS - Provider Constitutional: no fever, no chills. Skin: no Jaundice. ENMT: Denies dysphagia and heartburn. Respiratory: no shortness of breath. Cardiovascular: no chest pain. Gastrointestinal: no nausea, no vomiting, yes diarrhea, no GI bleeding. Physical Exam Vitals & Measurements T: 36 ?C(Temporal Artery) HR: 56(Peripheral) BP: 118/71 HT: 65 in HT: 165 cm WT: 97.4 kg WT: 214.28 lb BMI: 35.78 General: Well developed, well nourished, in no acute distress Head: Normocephalic/atraumati c Lungs: Normal respiratory effort and clear to auscultation Cardio: Regular rate and rhythm, normal S1 and S2, no murmur, no rub Abdomen: Soft, non-distended, non-tender. Normoactive bowel sounds present in all 4 abdominal quadrants, bilaterally. Mental Status: Alert and oriented x3. Normal mood and affect Assessment/Plan 1. Diarrhea (R19.7: Diarrhea, unspecified) Improved. Is having diarrhea 2 times a week that she reports has improved since starting fiber supplementation 1 capsule daily over the last 3 months. Was reportedly previously having diarrhea 3-4 times a week. Previous colonoscopy 05/21/2022 revealed normal colonic mucosa, hyperplastic polyp removed from transverse colon, hemorrhoids, random colon biopsy revealed lymphoid aggregates within normal limits?patient is due for repeat colonoscopy 2029. Educated to increase fiber supplementation to 2 capsules daily. 2. BRBPR (bright red blood per rectum) (K62.5: Hemorrhage of anus and rectum) Improved. With diarrhea, will reportedly have BRBPR. Previous colonoscopy 05/21/2022 revealed normal colonic mucosa, hyperplastic polyp removed from transverse colon, hemorrhoids, random colon biopsy revealed lymphoid aggregates within normal limits?patient is due for repeat colonoscopy 2029. Educated to increase fiber supplementation to 2 capsules daily. 3. History of colon polyps (Z86.010: Personal history of colonic polyps) Previous colonoscopy 05/21/2022 revealed normal colonic mucosa, hyperplastic polyp removed from transverse colon, hemorrhoids, random colon biopsy revealed lymphoid aggregates within normal limits?patient is due for repeat colonoscopy 2029. Educated regarding fiber supplementation daily. Follow-up With When Contact Information Linda Solorio CNP Within 6 months Additional Instructions: Patient Education Diarrhea, Adult High-Fiber Eating Plan Problem List/Past Medical History Ongoing Bile salt-induced diarrhea BRBPR (bright red blood per rectum) CAD in [place] artery Change in bowel habits Chronic renal impairment, stage 3a Claudication of both lower extremities Colon polyp Diarrhea Familial hypercholesteremia Hemorrhoids History of colon polyps History of DVT (more content not included)... Normal [facility] Comment on above: Result Comment: Elec tronically Signed By: Linda Solorio CNP\.br\Date and Time Signed: 09/10/22 08:27 EDT Patient Educationon 09-11-19 Patient Education Gastroenterology High-Fiber Eating Plan Fiber, also called dietary fiber, is a type of carbohydrate. It is found foods such as fruits, vegetables, whole grains, and beans. A high-fiber diet can have many health benefits. Your health care provider may recommend a high-fiber diet to help: ? Prevent constipation. Fiber can make your bowel movements more regular. ? Lower your cholesterol. ? Relieve the following conditions: ? Inflammation of veins in the anus (hemorrhoids). ? Inflammation of specific areas of the digestive tract (uncomplicated diverticulosis). ? A problem of the large intestine, also called the colon, that sometimes causes pain and diarrhea (irritable bowel syndrome, or IBS). ? Prevent overeating as part of a weight-loss plan. ? Prevent heart disease, type 2 diabetes, and certain cancers. What are tips for following this plan? Reading food labels ? Check the nutrition facts label on food products for the amount of dietary fiber. Choose foods that have 5 grams of fiber or more per serving. ? The goals for recommended daily fiber intake include: ? Men (age 50 or younger): 34?38 g. ? Men (over age 50): 28?34 g. ? Women (age 50 or younger): 25?28 g. ? Women (over age 50): 22?25 g. Your daily fiber goal is g. Shopping ? Choose whole fruits and vegetables instead of processed forms, such as apple juice or applesauce. ? Choose a wide variety of high-fiber foods such as avocados, lentils, oats, and kidney beans. ? Read the nutrition facts label of the foods you choose. Be aware of foods with added fiber. These foods often have high sugar and sodium amounts per serving. Cooking ? Use whole-grain flour for baking and cooking. ? Cook with brown rice instead of white rice. Meal planning ? Start the day with a breakfast that is high in fiber, such as a cereal that contains 5 g of fiber or more per serving. ? Eat breads and cereals that are made with whole-grain flour instead of refined flour or white flour. ? Eat brown rice, bulgur wheat, or millet instead of white rice. ? Use beans in place of meat in soups, salads, and pasta dishes. ? Be sure that half of the grains you eat each day are whole grains. General information ? You can get the recommended daily intake of dietary fiber by: ? Eating a variety of fruits, vegetables, grains, nuts, and beans. ? Taking a fiber supplement if you are not able to take in enough fiber in your diet. It is better to get fiber through food than from a supplement. ? Gradually increase how much fiber you consume. If you increase your intake of dietary fiber too quickly, you may have bloating, cramping, or gas. ? Drink plenty of water to help you digest fiber. ? Choose high-fiber snacks, such as berries, raw vegetables, nuts, and popcorn. What foods should I eat? Fruits Berries. Pears. Apples. Oranges. Avocado. Prunes and raisins. Dried figs. Vegetables Sweet potatoes. Spinach. Kale. Artichokes. Cabbage. Broccoli. Cauliflower. Green peas. Carrots. Squash. Grains Whole-grain breads. Multigrain cereal. Oats and oatmeal. Brown rice. Barley. Bulgur wheat. Millet. Quinoa. Bran muffins. Popcorn. [place] wafer crackers. Meats and other proteins [place] beans, kidney beans, and chase beans. Soybeans. Split peas. Lentils. Nuts and seeds. Dairy Fiber-fortified yogurt. Beverages Fiber-fortified soy milk. Fiber-fortified orange juice. Other foods Fiber bars. The items listed above may not be a complete list of recommended foods and beverages. Contact a dietitian for more information. What foods should I avoid? Fruits Fruit juice. Cooked, strained fruit. Vegetables Fried potatoes. Canned vegetables. Well-cooked vegetables. Grains White bread. Pasta made with refined flour. White rice. Meats and other proteins Fatty cuts of meat. Fried chicken or fried fish. Dairy Milk. Yogurt. Cream cheese. Sour cream. Fats and oils [place]. Beverages Soft drinks. Other foods Cakes and pastries. The items listed above may not be a complete list of foods and beverages to avoid. Talk with your dietitian about what choices are best for you. Summary ? Fiber is a type of carbohydrate. It is found in foods such as fruits, vegetables, whole grains, and beans. ? A high-fiber diet has many benefits. It can help to prevent constipation, lower blood cholesterol, aid weight loss, and reduce your risk of heart disease, diabetes, and certain cancers. ? Increase your intake of fiber gradually. Increasing fiber too quickly may cause cramping, bloating, and gas. Drink plenty of water while you increase the amount of fiber you consume. ? The best sources of fiber include whole fruits and vegetables, whole grains, nuts, seeds, and beans. This information is not intended to replace advice given to you by your health care provider. Make sure you discuss any questions you have with your health care provider. Document Revised: (more content not included)... [facility] Medication Refillon 08-23-19 23 Medication Refill [id number] D:[address] [facility] CBC w/Indiceson 08-01-2022 Erythrocyte distribution width (RBC) [Ratio] 14.0 % Normal 10.9-14.2 [facility] Comment on above: Performed By: #### 1 [id number], [id number] #### [facility] [address] [place] [address] Hematocrit (Bld) [Volume fraction] 39.9 % Normal 34.0-46.0 [facility] Comment on above: Performed By: #### 1 [id number], [id number] #### [facility] [address] [place] [address] Hemoglobin (Bld) [Mass/Vol] 12.7 g/dL Normal 12.0-16.0 [facility] Comment on above: Performed By: #### 1 [id number], [id number] #### [facility] [address] [place] [address] MCH (RBC) [Entitic mass] 27.9 pg Normal 27.0-34.0 [facility] Comment on above: Performed By: #### 1 [id number], [id number] #### [facility] [address] [place] [address] MCHC (RBC) [Mass/Vol] 31.8 g/dL Normal 31.4-36.0 [facility] Comment on above: Performed By: #### 1 [id number], [id number] #### [facility] [address] [place] [address] MCV (RBC) [Entitic vol] 87.6 fL Normal 80.0-100.0 [facility] Comment on above: Performed By: #### 1 [id number], [id number] #### [facility] [address] [place] [address] Platelet mean volume (Bld) [Entitic vol] 10.5 fL Normal 6.4-10.8 [facility] Comment on above: Performed By: #### 1 [id number], [id number] #### [facility] [address] [place] [address] Platelets (Bld) [#/Vol] 227.0 E9/L Normal 150.0-500.0 [facility] Comment on above: Performed By: #### 1 [id number], [id number] #### [facility] [address] [place] [address] RBC (Bld) [#/Vol] 4.6 E12/L Normal 4.3-5.9 [facility] Comment on above: Performed By: #### 1 [id number], [id number] #### [facility] [address] [place] [address] WBC corrected for nucl RBC Auto (Bld) [#/Vol] 7.3 E9/L Normal 4.0-11.0 [facility] Comment on above: Performed By: #### 1 [id number], [id number] #### [facility] [address] [place] [address] Consent for Treatmenton 07-14 Consent for Treatment [id number]#1.00C D:127 Normal [facility] Lipid Panelon 08-01-2022 Cholesterol [Mass/Vol] 128 mg/dL Normal 120-200 [facility] Comment on above: Performed By: #### 1 [id number], [id number] #### [facility] [address] [place] [address] Cholesterol in HDL [Mass/Vol] 47 mg/dL Invalid Interpretation Code [facility] Comment on above: Result Comment: HDL > or equal to 60 mg/dL: Low cardiovascular risk HDL < 40 mg/dL : High cardiovascular risk Performed By: #### 1 [id number], [id number] #### [facility] [address] [place] [address] Cholesterol in LDL [Mass/Vol] 59 mg/dL Normal <=129 [facility] Comment on above: Performed By: #### 1 [id number], [id number] #### [facility] [address] [place] [address] Cholesterol in VLDL [Mass/Vol] 27 mg/dL Normal 7-40 [facility] Comment on above: Performed By: #### 1 [id number], [id number] #### [facility] [address] [place] [address] Triglyceride [Mass/Vol] 133 mg/dL Normal <=149 [facility] Comment on above: Performed By: #### 1 [id number], [id number] #### [facility] [address] [place] [address] Physician Orderon 08-01-2022 Physician Order [id number] CD:[address] [facility] Reminderson 2022 Reminders - From: Adore Back To: Adore Back; Sent: 06/02/2022 12:58:15 EDT Show up: 06/04/2022 07:30:00 EDT Subject: Procedure Follow Up Reminder/Recall I called patient and left a message for her to call the office back to schedule a follow up from her Colonoscopy on 05/21/22.Patient can see Linda. I called patient and left message with her and he will have her call back to schedule. I called patient and talked to her he will have her call back after she gets off work today. patient was seen on 06/11/22 by Linda [facility] Retail - Clinical Noteon Retail - Clinical Note [id number] D:[address] [facility] Ambulatory Visit Summaryon 0 06-11-2022 Ambulatory Visit Summary EVON CORCORAN :1950 Visit Date:06/11/2022 Ambulatory Visit Instructions Your Diagnosis Colon polyp Hemorrhoids Diarrhea BRBPR (bright red blood per rectum) Your Care Team Attending Physician - Linda Solorio CNP Primary Care Physician - Christopher WELLS DO, FAAFP This Is Your Medications List Contact prescribing physician if questions or concerns Misc Prescription (Glucometer) Misc Prescription (Lancets) Misc Prescription (Test strips) amlodipine (amLODIPine 5 mg Tab) aspirin atorvastatin (atorvastatin 40 mg Tab) chlorthalidone (chlorthalidone 25 mg Tab) cilostazol (Pletal 50 mg oral tablet) insulin degludec (Tresiba FlexTouch 100 units/mL subcutaneous solution) insulin lispro (Lyumjev KwikPen) losartan (losartan 50 mg Tab) metoprolol (Metoprolol succinate 50 mg ER Tablet) multivitamin (Multi Vitamins oral tablet) nitroglycerin (NitroStat 0.4 mg Tab) potassium chloride (potassium chloride 10 mEq Cap-ER) rivaroxaban (Xarelto 10 mg oral tablet) ubiquinone (Co Q-10) Procedures Performed Colonoscopy (05/21/2022), Colonoscopy (04/15/2017), Cardiac Stents x 3, Cholecystectomy, Hysterectomy. Discharge Vitals Temperature (Temporal Artery) 36.6 ?C Heart Rate (Peripheral) 66 Blood Pressure 136/70 Height 65 in Height 165 cm Weight 214.72 lb Weight 97.6 kg BMI 35.85 What to do next Scheduled Follow-Up Appointments Thursday 8:00 AM EDT With: Linda Solorio CNP Where: [facility] Normal [facility] Gastroenterology Office/Clin ic Noteon 06-11-2022 Gastroenterology Office/Clinic Note Chief Complaint Rectal bleeding and diarrhea. HPI Staff Patient is a 71 year old female that c/o diarrhea and rectal bleeding. Patient had colonoscopy on 05/21/22 and has received results. History of Present Illness Patient is a 71-year-old female who presents for follow-up from colonoscopy completed 05/21/[address] Benson. Patient was previously evaluated 05/05/2022 and has PMH of DM, type 2, HLD, HTN?managed by patient's PCP. Patient also with history of colon polyps. Patient is currently taking Xarelto daily for history of DVT and claudication. Patient reported during previous evaluation 04/2022 that she was having change in bowel habits with watery diarrhea occurring 2 times a week. She also reported having off-and-on bright red blood per rectum on toilet paper with wiping. Patient was ordered stool testing to evaluate for infectious process, CBC/CMP, and colonoscopy. Hx. cholecystectomy over 10 years ago. Labs completed 04/2022 revealed normal H&H, elevated BUN, low calcium?patient to follow-up with PCP regarding, normal creatinine, normal liver enzymes. Stool testing 04/2022 negative for infectious process. Stool testing completed negative for Campylobacter, Salmonella, Shigella, Shiga toxin, Vibrio, Rotavirus, Norovirus, Yersinia enterocolitica. Stool testing for C. difficile unable to be completed in relation to stool consistency per lab. Previous colonoscopy 03/[address] Tapia that revealed tubular adenoma removed from transverse colon, diverticulosis, hemorrhoids. Colonoscopy completed 05/21/22 revealed normal colonic mucosa, 5mm hyperplastic polyp removed from transverse colon, hemorrhoids, random colon biopsy revealed lymphoid aggregates within normal limits?patient to have repeat colonoscopy in 7 years- 2029. Denies FH colon cancer or colon polyps. During today's visit, patient reports she is still having watery diarrhea 2 times a week over the last 3-4 years. She explains she was previously on Questran that was prescribed by her PCP that she indicates she did not notice helped her diarrhea much. Is having 1-3 BMs daily. She explains having BRBPR on toilet paper occurring 1 time a month for years. Denies use of fiber supplementation. Denies rectal pain, fevers/chills, mucus in stool, black/bloody stools, nausea/vomiting, and denies having any other GI complaints. Review of Systems PHQ Score Initial Depression Screen Score: 0 ROS - Provider Constitutional: no fever, no chills. Skin: no Jaundice. ENMT: Denies dysphagia and heartburn. Respiratory: no shortness of breath. Cardiovascular: no chest pain. Gastrointestinal: no nausea, no vomiting, yes diarrhea. See HPI for details regarding. Physical Exam Vitals & Measurements T: 36.6 ?C(Temporal Artery) HR: 66(Peripheral) BP: 136/70 HT: 65 in HT: 165 cm WT: 97.6 kg WT: 214.72 lb BMI: 35.85 General: Well developed, well nourished, in no acute distress Head: Normocephalic/atraumati c Lungs: Normal respiratory effort and clear to auscultation Cardio: Regular rate and rhythm, normal S1 and S2, no murmur, no rub Abdomen: Soft, non-distended, non-tender. Normoactive bowel sounds present in all 4 abdominal quadrants, bilaterally. Mental Status: Alert and oriented x3. Normal mood and affect Assessment/Plan 1. Colon polyp (K63.5: Polyp of colon) Previous colonoscopy 03/[address] Tapia that revealed tubular adenoma removed from transverse colon, diverticulosis, hemorrhoids. Colonoscopy completed 05/21/22 revealed normal colonic mucosa, 5mm hyperplastic polyp removed from transverse colon, hemorrhoids, random colon biopsy revealed lymphoid aggregates within normal limits?patient to have repeat colonoscopy in - 2029. Educated regarding fiber supplementation daily- metamucil 1 capsule daily- separate 2 hours from other medications. 2. Hemorrhoids (K64.9: Unspecified hemorrhoids) Previous colonoscopy 03/[address] Tapia that revealed tubular adenoma removed from transverse colon, diverticulosis, hemorrhoids. Colonoscopy completed 05/21/22 revealed normal colonic mucosa, 5mm hyperplastic polyp removed from transverse colon, hemorrhoids, random colon biopsy revealed lymphoid aggregates within normal limits?patient to have repeat colonoscopy in 2029. Educated regarding fiber supplementation daily- metamucil 1 capsule daily- separate 2 hours from other medications. 3. Diarrhea (R19.7: Diarrhea, unspecified) Watery diarrhea 2 times a week over the last 3-4 years. Hx. cholecystectomy over 10 years ago. Labs completed 04/2022 revealed normal H&H, elevated BUN, low calcium?patient to follow-up with PCP regarding, normal creatinine, normal liver enzymes. Stool testing 04/2022 negative for infectious process. Stool testing completed negative for Campylobacter, Salmonella, Shigella, Shiga toxin, Vibrio, Rotavirus, Norovirus, Yersinia enterocolitica. Stool testing for C. difficile unable to be completed in relation to stool consistency per lab. Reports she was previ (more content not included)... Normal [facility] Comment on above: Result Comment: Elec tronically Signed By: Linda Solorio CNP\.maria teresa\Date and Time Signed: 06/11/22 09:30 EDT Patient Educationon 06-12-19 Patient Education Endocrinology High-Fiber Diet Fiber, also called dietary fiber, is a type of carbohydrate that is found in fruits, vegetables, whole grains, and beans. A high-fiber diet can have many health benefits. Your health care provider may recommend a high-fiber diet to help: ? Prevent constipation. Fiber can make your bowel movements more regular. ? Lower your cholesterol. ? Relieve the following conditions: ? Swelling of veins in the anus (hemorrhoids). ? Swelling and irritation (inflammation) of specific areas of the digestive tract (uncomplicated diverticulosis). ? A problem of the large intestine (colon) that sometimes causes pain and diarrhea (irritable bowel syndrome, IBS). ? Prevent overeating as part of a weight-loss plan. ? Prevent heart disease, type 2 diabetes, and certain cancers. What is my plan? The recommended daily fiber intake in grams (g) includes: ? 38 g for men age 50 or younger. ? 30 g for men over age 50. ? 25 g for women age 50 or younger. ? 21 g for women over age 50. You can get the recommended daily intake of dietary fiber by: ? Eating a variety of fruits, vegetables, grains, and beans. ? Taking a fiber supplement, if it is not possible to get enough fiber through your diet. What do I need to know about a high-fiber diet? ? It is better to get fiber through food sources rather than from fiber supplements. There is not a lot of research about how effective supplements are. ? Always check the fiber content on the nutrition facts label of any prepackaged food. Look for foods that contain 5 g of fiber or more per serving. ? Talk with a diet and compensation/benefits specialist (dietitian) if you have questions about specific foods that are recommended or not recommended for your medical condition, especially if those foods are not listed below. ? Gradually increase how much fiber you consume. If you increase your intake of dietary fiber too quickly, you may have bloating, cramping, or gas. ? Drink plenty of water. Water helps you to digest fiber. What are tips for following this plan? ? Eat a wide variety of high-fiber foods. ? Make sure that half of the grains that you eat each day are whole grains. ? Eat breads and cereals that are made with whole-grain flour instead of refined flour or white flour. ? Eat brown rice, bulgur wheat, or millet instead of white rice. ? Start the day with a breakfast that is high in fiber, such as a cereal that contains 5 g of fiber or more per serving. ? Use beans in place of meat in soups, salads, and pasta dishes. ? Eat high-fiber snacks, such as berries, raw vegetables, nuts, and popcorn. ? Choose whole fruits and vegetables instead of processed forms like juice or sauce. What foods can I eat? Fruits Berries. Pears. Apples. Oranges. Avocado. Prunes and raisins. Dried figs. Vegetables Sweet potatoes. Spinach. Kale. Artichokes. Cabbage. Broccoli. Cauliflower. Green peas. Carrots. Squash. Grains Whole-grain breads. Multigrain cereal. Oats and oatmeal. Brown rice. Barley. Bulgur wheat. Millet. Quinoa. Bran muffins. Popcorn. [place] wafer crackers. Meats and other proteins [place], kidney, and chase beans. Soybeans. Split peas. Lentils. Nuts and seeds. Dairy Fiber-fortified yogurt. Beverages Fiber-fortified soy milk. Fiber-fortified orange juice. Other foods Fiber bars. The items listed above may not be a complete list of recommended foods and beverages. Contact a dietitian for more options. What foods are not recommended? Fruits Fruit juice. Cooked, strained fruit. Vegetables Fried potatoes. Canned vegetables. Well-cooked vegetables. Grains White bread. Pasta made with refined flour. White rice. Meats and other proteins Fatty cuts of meat. Fried chicken or fried fish. Dairy Milk. Yogurt. Cream cheese. Sour cream. Fats and oils [place]. Beverages Soft drinks. Other foods Cakes and pastries. The items listed above may not be a complete list of foods and beverages to avoid. Contact a dietitian for more information. Summary ? Fiber is a type of carbohydrate. It is found in fruits, vegetables, whole grains, and beans. ? There are many health benefits of eating a high-fiber diet, such as preventing constipation, lowering blood cholesterol, helping with weight loss, and reducing your risk of heart disease, diabetes, and certain cancers. ? Gradually increase your intake of fiber. Increasing too fast can result in cramping, bloating, and gas. Drink plenty of water while you increase your fiber. ? The best sources of fiber include whole fruits and vegetables, whole grains, nuts, seeds, and beans. This information is not intended to replace advice given to you by your health care provider. Make sure you discuss any questions you have with your health care provider. Document Released: 03/02/2006 Document Revised: 01/04/2018 Document Reviewed: 01/04/2018 [employer] Patient Education ? 2019 [employer] Gastro (more content not included)... Normal [facility] Reminderson 06-11-2022 Reminders - From: Linda Solorio CNP To: Doretha Henry; Sent: 06/11/2022 09:24:04 EDT Show up: 06/11/2022 09:24:00 EDT Subject: Ambulatory Reminder Reminder/Recall Colonoscopy in 2029. [address] benson 05/21/2029 From: Doretha Henry To: [facility] - Reminders/Recalls; Sent: 06/11/2022 12:14:24 EDT ! Show up: 04/16/2029 12:14:00 EST Due Date/Time: 05/14/2029 12:14:00 EST Normal [facility] IntraOperative Documentson 0 05-30-2022 IntraOperative Documents [id number] D:127 Normal [facility] Result Letter Officeon 05-30 Result Letter Office May 30, 2022 [address]AN [address] [place] [address] EVON CORCORAN 1950 Below is a summary of the results of your recent colonoscopy. Your results have been sent to your primary care provider along with recommendations on when the procedure should be repeated. COLONOSCOPY WITH POLYP REMOVAL _x__ Normal - NO CANCER Type of polyp hyperplastic polyp - benign - not considered precancerous Based on your results we are recommending you repeat the procedure in 10 years You will be placed in our reminder system and will receive a reminder letter prior to your next due date. [facility] [phone] Normal [facility] Postoperative Documentson Postoperative Documents [id number] D:127 Normal [facility] Coding Summary.on 05-26-2022 Coding Summary. [id number] Gh0 bWw+PGhlYWQ+IQ5FRCSyY46 haPXbsK4bB2DIMOpJOisxOZ DIRObWLbOuuuCeMA8zmDUzE XJu IC8+YJ3kYRYlSpsafEHgz3T 0mWZ8T87tno4jOUnzgMV4XO IrDlLzhksos6otqUf4XYanA mluOyBt TTIibX87QSR8eS58Bf92wIS gnMNet8uarTm1IkBeDZJlKK U7rUuqRIbln0DvOZTkX85cj ITwv6P1 QSCbeFwvzZLqOhGxfOM8iU8 aKNxcnkfqd7zbdanrFxx5cv 74eVUyd5Q9sGD6F7AiyvE1D GJvbGQg YacjxJKGjT5tbdccn8litkv eUrWmKJAlPVq5UXo8QKLxoB xaVvWvJY87QVJ4BFWaqcWkT 2FsLWFs zHgaGyO5i9Y4Xa1ST7LSPjv pA8DLSENLLQfsxGC+PC90cj 60R0OaPyrdBwa1IBXkAPW5m BU2bA7z ZSQjQWtfe6C8eWK2Z1PlwnE qmk1mt6qkFEAhAZkwJ04vcY Eyh5X8WOOtkJV7UUImvTjhD iBzaG93 Oyc+IIOluZoyd5GwBzyqv3b fi2wozBt1UeymQVMzwzTinE meFQK1i9DySs0zFVBqdLO5r XN8wA6i QaPvIrR1GDvkK661OiVkmTL uRsdfM95iO7HgsNW+PHRyPj k3XABsnZrkPV0kP3VtUBMwl mctbGVm sZujSA1cPUIeokpjXIWvpS1 hYLTaW9u8JeQoRwS5ICeuP7 HnHIWvyexlIj91oR2tPzAuH gX1JIfa M8LbmiV9JPCsjFYjALmxYCH 1M54uy6B5DVFzQBCpRZH1wZ J5qY1rtYsemrxomNGgoUzvx mVydGlj PYxrYAsxN356TRTxxHzdTkV vZGluZyBEYXRlOiAgMDMvMT MvMjAyMzwvdGQ+NHPqLBQ2m WxlPSAn dVShBZcfMt6liIwltXuzIW8 sVKKflhudFKXhyV2vHDMwjB ZzzPqzCS5xOYLmknflv056K iAxMHB0 LYEvfAUzX5TmpR3aMcOoYQI zEOBzK8MvuCIhUQclI484SU jjHrF8KKAdpuEmA9VoMXEtd WduOiB0 r2X8Em3Oj0PivuvqX7PhgLB tJmQvVokkAOn0E6KyEgiomE I+MO09SQZuVZ77GXy6RWN5a WxlPSdi STQgZ3JohR5eUpQzPAGgBMG kOyc+PHRhYmxlIHdpZHRoPS euYTGsQyDtrCooAB4yQp0xW GVyLWNv fWetxTNmAsHwg0hkIMKcRJw nCQ0yoFydX8TmoXP3NYKio9 e4Os46O33wI8FhsBU+PGNvb MM2yDT7 rS7tMhDfWgJ1QRccJ706GsW qxUMoVedgi4ljc2yipQv2Hx Z2RHQnycDlmWdaOXZ9j1PgY x10R53a IHdpZHRoPSIxNSUiIHZhbGl tmg5bfU1uTe6+QRJgoJX6fO Z5vY2jCwLqYfV0PBjtN244K nRvcCIv Upvyb4swr5kywBk3SdOvWUZ lweFcjIgeNQT6e4VsAf67J7 SxjZfaq2KxOhx0kj52aRZbe 0M6rUT8 X2YyVTOgtfhyrHGikAufCO6 yBBHdmvpmTKNqhG8kXAOkZ9 a5WvObGqI9WTqgT7AgeeF8U GJvbGQg TXShhQKOsJ4omengu2iowpn qZbTsPTFrFCx5HTp7MKQrsY tkRoVsJVC2RiY9GLR4iLIjz Z6rxPip uewowK5mTol+VYS5mWYslWR MHJ0tSogwdJS+ZBGrORV4lD scBVacNGKsrO5sFRCbD7a7Z iAwLjA1 KKyhY6SdnuK6LXCerVUwPDU jfSNFsL1hglpym9vwfgdzMd HvHGFoKVt9OMt8ZELqlRziX iBsZWZ0 JyZ3FCD2mKGlrU6eoZlclnz hwT5uRkn+EeycwKyzCCI6LP h7G3VdWkd4VVJpgTyvWL0tp GFkZGlu Mv5whQkooJraOG1xIOKtkva ai162DkMoo1fhEWHhjTYxOA mnBUN4D06rd2M4JKTrJRNbM SZ6dVB0 yC1oxYqhimyeoGIrtXxefhL zxIgyWZioNRaiT023PDRfnT liXsGcHZe9B7QgZmi8KACjn XkgYR8o fZPrVGeiPq3okRsqoKmaJN4 kTFBkqfady385GdUbg1xpKJ HloWLjOCotRIY1P82fx7K2W CMwMDAw NBT4yGT5rT8czItxswjyuTT mdDsgdmVydGljYWwtYWxpZ2 76ERFbbGhyQeFtwFu1U0EaA rv9FHPv zQuiGG5fdEKhPEewFs5grLk vhCsfSS9yYWLnwfhin514Ma Rln2xvVTZlqLMlPDqaXLY5V 23dl4O5 KVHlUEGuBZH7kIQ3zP6vlDw nbjogbGVmdDsgdmVydGljYW riFQaoN535LFGcnNzhZkJrj GllbnQg DYwrCUx6S2GjIsfrwKZ+PC9 8TXGpSZ37vRSjwFCxi0zbaM h1JrAfWZIsOPB5aTueUQarw 3JkZXIt P04heNJiq8S8QLTpiCwqlKI iNpVprAD4jC2uBEwyvxqxr1 fswrutCyrfy2foub06iZ59O 29sIHdp ZHRoPSIzMCUiIHZhbGlnbj0 krL5kFw2+OSVfqCV9tOR4mC 8oLLToAhI5OFakO717OxMos CIvPjxj t7qhy4vdgSt9ReM5HBMqjjW bzJvtZMW2a0StBj59L54lRS dpZHRoPSIyMCUiIHZhbGlnb p4mkQ9t Ii8+KNTrvJP6tIK5fG6vBsN zAkS4KXzbD876QdQqwYQkBs xbR65dI3VvkEX+FDHxRwu0C CBzdHls GC9amVNpLFhaLs9fOWJ8GxF kCzXnSQaeN8XsOZEucqgzji nodVI3VQFhHZKleJ33Np2pg DogMTBw fCVDsP6algxee2nmvigbVpF zARKtLNf3LJq1YPBgpRvjCi OuSJO7SvB6QNJ6dKQpeY0yq Glnbjog dA7rI3GbQZFogixxOu02gO2 jElIvRaT4SHexGwb+VFJVTV NUJ4FSNUHUENMWFgCJZT35G F76lONf f4J1iNM6V7CyQJUtqiyueyl jpOY6VGQkBUBcyE32aREoUN qyTt2oa2W8b819VDVtVJYbe A87Qk4n jQczMEUwiXAChE1dpvcdm4w gtatdOxZeJPLvVOc4WEi7HM OsaGvmYrGtOJT6DnE4CTQ0c SNhqR2o xFbdteriyP4hIng+MDQvMTE qDMl2XRxnoCZ+JATiFWT5pA wjFXdxGVRbtT1gDYEuG3h9E iAwLjA1 VClhJ9PlUQGhsipyKj27rB5 yYrJePiJ6IBrnZ2VyzfU1PG FgqKLnUTxlTRT5W83vo3T9X CMwMDAw XLS3bOQ9nR4qcQirpumwhIJ mdDsgdmVydGljYWwtYWxpZ2 46IHRvcDsnPjcyIFllYXJzP N26AB13 aILss7X5dMQ4N5JgTFXkmvy vzzltkNL6PXNvZMDqcJ15zO LuVIjaIt3aq9R5o726JDQsM DUwaW47 Mj2kjXjfBUOktLUZcH7hhih xe4iqctlrQsQaJOZmUHx0JU t0HQBagKotQvDtJGF4AiG8D JG4mSEe eK5vhPgwwjmekA5pHgp+RmV lLXwiVW13XB83fAChs8D9rT M6S2TtIDSmefgjdqskpIN9W DAuMDUw iA55oWFzLCasWs3ns2C8g65 6JAMxIRPliA90Kr2zrQytSW PpqIMBxL3mctbdk7agauvdZ zAwMDAw RTa7SJp0NKZkwQmtNzKbAEA 1LhV4LCF5oNVnlQ3woNogrd lpzZ8mIsf+F8K9xFT7gLRgn DwvdGQ+ OK58du85E4SrWvvrGoy2OYH fJAV2hVQ1qT7oIYOgEXnhl5 L3fGN3N2XrzjQddu0mo3ufG XBzZTog J38hpNFsc0Y4HHPdaWP6LGI xbUtpSfFoaY32Kem+PGNvbG cru7JuVqzia0bpx2elaCa5A jMwJSIg pbYyyPwkAEQ3s5QzAe04B22 sIHdpZHRoPSIzMCUiIHZhbG gsla8jaJ1fEb5+PDAhnAX3m XA4hV7u CoWtYjP8RTkgR609UvQmqMZ rVedas9zta5gpeTd3SmPkEE KosiSgoAkgTNU9d9GaTi97P 2NvbGdy r7HfGir6pl19dCIcg6O9yTK 8J7IaOWVxthmpdYPwvAliXS 0gQUXpzhamSNZpgR4yLVLmH 4y9FqYl BhN2SPvoF2VupvS7CJWlpWL sZTKujACFzF3pkzdjs2vshz wwKuOkZRZmPVw9FQb3IJYav WduOiBs ECD2WjI8SYL8fSQdcX9jiGe ylmhtrN3eKhk+OAg3l2dkeS RxYV9vaOQ6DO93RR16lHLho 8U5wFT8 R9PoTLWnrkjuywprtJX1WHI xCENsxP80Bs6clNmnKl1dVW BiNHF7WWXyuKDbT5RhaC6eH iAjMDAw IMJxR0XtrVUiTXloK917HYc zDaD0HKBunpTeR8MyUSKnsD ygTyV7r7O2Vj1OSK29WK62I V54pTOg d4O6bKM1Q8ExKXYyrbzrfcd ojRY6ICCeDDRaaV27Sh2ivY ryRx3oOTLmNEI7IFQajDXaU 9LfdU2z EtXiLHCiLAMaO7BbgAVoTKe kK400RBubSoM8CZOarhGpP1 BhZKVcqFrgPuV1v4N6Ol2ZZ k32KW93 EF20pGBcc1N5yXP1X1WfDED coiwtvsijoPE8EIBrHFEynC 11Af7aoAxvTb4cCTNkSSZ6S FRpbWVz O3EemC2jOgRsVOKtOIPcV8K qdHWyVNsuV295CTyaTrW3PT EeygBbE5CeETBhhQeaWeN7f 1X0Td8Q LSmbxsh8L2LmCnedoOE+PC9 6YTZkMT21fSNrjMEuu0btkH p5HgWfIGXqAGY1bWooKEfka 3JkZXIt Y29s (more content not included)... Normal [facility] Main OR Intraoperative Recor don 05-26-2022 Main OR Intraoperative Record IntraOp Document Type FT Summary Primary Physician: Luis BENSON MD Finalized Date/Time: 05/26/22 08:45:38 Pt. Name: EVON CORCORAN Brent Francis./Sex: 1950 Female Med Rec #: [id number] Physician: Luis BENSON MD Financial #: [id number] Pt. Type: O Room/Bed: / Admit/Disch: 05/21/22 11:58:42 - 05/21/22 23:59:59 Institution: Case Times FT Entry 1 Patient Times In Room 05/21/22 13:14:00 Out Room 05/21/22 13:33:00 Procedure Times Start 05/21/22 13:19:00 Stop 05/21/22 13:29:00 Anesthesia Times Start 05/21/22 13:14:00 Stop 05/21/22 13:33:00 Time at [facility] 05/21/22 13:22:00 Last Modified By: Hiral Bowden RN 05/21/22 13:33:41 General Comments: 05/26/22 Chart opened to review and send charges [facility] CSFA Case Attendance FT Entry 1 Entry 2 Entry 3 Case Attendee Noé Johnston RN, Esha Diane Role Performed Anesthesiologist [employer] Teacher - Primary Staff - Other Manager Educational Time In 05/21/22 13:14:00 05/21/22 13:14:00 05/21/22 13:14:00 Time Out 05/21/22 13:33:00 05/21/22 13:33:00 05/21/22 13:33:00 Procedure COLONOSCOPY(.) COLONOSCOPY(.) COLONOSCOPY(.) Comments Dr. Garnica supervising help in room Last Modified By: Dennise ECHAVARRIA, Hiral Bowden RN, Hiral Rodriguez RN 05/21/22 13:33:49 05/21/22 13:33:49 05/21/22 13:33:49 Entry 4 Entry 5 Case Attendee Sukhi STAHL, Luis Fraire MD Role Performed Scrub - Primary Surgeon - Primary Time In 05/21/22 13:14:00 05/21/22 13:14:00 Time Out 05/21/22 13:33:00 05/21/22 13:33:00 Procedure COLONOSCOPY(.) COLONOSCOPY(.) Comments Last Modified By: Dennise ECHAVARRIA, Hiral Rodriguez RN 05/21/22 13:33:49 05/21/22 13:33:49 Perioperative Protocols FT Pre-Care Text: Implements protective measures prior to operative or invasive procedure, confirms identity before the operative or invasive procedure, verifies operative procedure, surgical site, and laterality Entry 1 Procedure(s) COLONOSCOPY(.) Patient Identity Birthday, ID Band Verified (select at Check, Patient least 2): Participation Consents / H and P Anesthesia Consent, Operative Site N/A Verified HandP, Surgery/Procedure Marking Verified Consent Surgical Site No Laterality Verified n/a Verified Procedure Verified Yes Correct Patient Yes Position Verified Availability Equipment, Medication Prep Dry n/a Verified (If Applicable) PreOp Antibiotic No Time Out Noé Johnston, Given Participants Hiral Bowden RN, Miles, Kirstyn K, Sukhi STAHL, MARCELINO Malin MD, Maher Time Out Complete 05/21/22 13:18:00 Outcomes Met? Yes Last Modified By: Hiral Bowden RN 05/21/22 13:24:01 Post-Care Text: The patient is free from signs and symptoms of injury caused by extraneous objects Allergy Information FT Pre-Care Text: Verifies allergies Entry 1 Allergies Reviewed? Yes Allergies Reviewed Self/Patient With Outcomes Met? Yes Last Modified By: Hiral Bowden RN 05/21/22 13:24:07 Post-Care Text: The patient received appropriate medication(s) safely administered during the perioperative period Surgical Procedures FT Entry 1 Procedure Description Procedure COLONOSCOPY Modifiers . Surgeon Description Colonoscopy with transverse colon polypectomy and random colon biopsy Primary Procedure Yes Primary Surgeon MARCELINO PIMENTEL, Luis Start 05/21/22 13:19:00 Stop 05/21/22 13:29:00 Anesthesia Type General Surgical Service Gastroenterology Wound Class 2 - Clean-Contaminated Last Modified By: Hiral Bowden RN 05/21/22 13:30:09 General Case Data FT Pre-Care Text: Classifies surgical wound, implements aseptic technique, initiates traffic control Entry 1 Case Information OR ENDO 1 FT Case Level Level 2 Wound Class 2 - Clean-Contaminated Specialty Gastroenterology ASA Class 3 Preop Diagnosis HX COLON POLYPS, CHANGE Postop Same As Preop No IN BOWEL HABITS, BRIGHT RED BLOOD PER RECTUM Postop Diagnosis Transverse colon polyp Outcomes Met? Yes and internal hemorrhoids Last Modified By: Hiral Bowden RN 05/21/22 13:30:21 Post-Care Text: The patient is free from signs and symptoms of infection Skin Assessment (Pre Procedure) FT Pre-Care Text: Implements protective measures to prevent skin/ tissue injury due to thermal or mechanical sources Evaluates for signs and symptoms of physical injury to skin and tissue Entry 1 Skin Integrity Intact, [place], Warm, and Skin Abnormality No Dry Outcomes Met? Yes Last Modified By: Hiral Bowden RN 05/21/22 13:24:54 Post-Care Text: The patient is free from signs and symptoms of injury caused by extraneous objects Patient Positioning FT Pre-Care Text: Identifies physical alterations that require additional precautions for procedure-specific positioning, verifies presence of prosthetics or corrective devices, positions the patient, evaluates the patient for signs and symptoms of injury as a result of positioning (more content not included)... Normal [facility] Consenton 05-22-2022 Consent [id number] CD:127 Normal [facility] Discharge Instructionson Discharge Instructions [id number] CD:127 Normal [facility] Consent for Treatmenton Consent for Treatment [id number] D:127 Normal [facility] Endoscopic Procedure Report - Otheron 05-21-2022 Endoscopic Procedure Report - Other Patient: EVON CORCORAN Age: 71 years Sex: Female : 1950 Associated Diagnoses: None Author: Luis BNESON MD Pre-Procedure Procedure Date 05/21/2022 13:30:00 . Procedure Type: Colonoscopy with biopsy. Procedure provider Performed by Luis Benson MD. Current history and physical Documented on chart. Colorectal neoplasm risk assessment Average risk. Informed Consent After discussing the rationale, risks and benefits, and alternatives to this procedure, the patient provided signed consent for the procedure. Pre-procedure diagnosis: Diarrhea, clinically significant. Medications Anticoagulant/antiplate let None. Antibiotic prophylaxis Not indicated. ASA Classification: Class II. . Procedure The procedure was performed in the hospital. Rectal exam was performed and was normal with no masses palpated. The patient was positioned in the left lateral decubitus position and a digital rectal exam was performed.. Endoscope type used was an adult-size. The endoscope was lubricated then introduced through the anus. The terminal ileum was photographed The ileocecal valve was photographed The appendiceal orifice was photographed The time to the cecum was 3 minutes The withdrawal time was 7 minutes No difficulties encountered during the procedure. The bowel preparation quality was adequate (see polyps greater than or equal to 6 millimeters). The patient tolerated the procedure well. Findings 1. Normal terminal ileum, photograph taken 2. Normal colonic mucosa, random biopsies obtained from ascending colon and rectum to rule out microscopic colitis 3. Sessile polyp, 5 mm, in the transverse, removed completely with cold snare 4. Moderate nonbleeding internal hemorrhoids Images Procedure images: [id number] . Post-Procedure Complications: none. Estimated blood loss: none. Specimens: sent to pathology. Devices/ implants: none left in place. Impression and Plan Impression: 1. Normal terminal ileum, photograph taken 2. Normal colonic mucosa, random biopsies obtained from ascending colon and rectum to rule out microscopic colitis 3. Sessile polyp, 5 mm, in the transverse, removed completely with cold snare 4. Moderate nonbleeding internal hemorrhoids Recommendations: Repeat colonoscopy:: In 10 years, Pending pathology results, 7 yrs. Follow-up:: Clinic follow-up in 1-2 weeks. Diet:: Resume previous diet. Medication resumption:: Continue current medications. Return to activities:: After 24 hours. Normal [facility] Comment on above: Result Comment: Elec tronically Signed By: Luis BENSON MD\.br\Date and Time Signed: 05/21/22 13:31 EST Other Comment: Soila ariza Attachment - attachment storage system not supported [id number] Can be viewed in source systemMissing Attachment - attachment storage system not supported [id number] Can be viewed in source system Inpatient Patient Summaryon 05-21-2022 Inpatient Patient Summary [address] [address] [facility] Clinical Discharge Instructions PERSON INFORMATION Name: EVON CORCORAN [facility] Admitting Physician: Luis BENSON MD Attending Physician: Luis BENSON MD PCP: Christopher WELLS DO, FAAFP Discharge Diagnosis: Diarrhea Comment: PATIENT EDUCATION INFORMATION Instructions: Colonoscopy, Care After Surgery Marcelino (ARLENE); Colon Polyps Medication Leaflets: Follow up: With: Address: When: Luis BENSON [address] [place] [address]. [address] [place], [place] [id number] Business (1) Comments: office will call for follow up MEDICATION LIST Medications to Continue Taking That Have Changed Other Medications START: atorvastatin (atorvastatin 40 mg Tab) 1 Tablets By Mouth every day for 90 Days. Refills: 3. Medications to Continue with No Changes Other Medications amlodipine (amLODIPine 5 mg Tab) 1 Tablets By Mouth every day. aspirin 81 Milligram By Mouth every day. chlorthalidone (chlorthalidone 25 mg Tab) 1 Tablets By Mouth at bedtime. Refills: 1. cilostazol (Pletal 50 mg oral tablet) 1 Tablets By Mouth 2 times a day. Refills: 5. insulin degludec (Tresiba FlexTouch 100 units/mL subcutaneous solution) 30 Units Subcutaneous 2 times a day. Dx E11.65. Refills: 11. insulin lispro (Lyumjev KwikPen) losartan (losartan 50 mg Tab) 1 Tablets By Mouth 2 times a day. metoprolol (Metoprolol succinate 50 mg ER Tablet) By Mouth every day. Misc Prescription (Glucometer) Dx: E11.9 Directions: Test BID. Refills: 0. Misc Prescription (Lancets) Dx: E11.9 Directions: BID. Refills: 11. Misc Prescription (Test strips) Dx: E11.9 Directions: BID. Refills: 11. multivitamin (Multi Vitamins oral tablet) 1 Tablets By Mouth at bedtime. nitroglycerin (NitroStat 0.4 mg Tab) 1 Tablets Sublingual every 5 minutes as needed Chest pain. potassium chloride (potassium chloride 10 mEq Cap-ER) 1 Capsules By Mouth every day. Refills: 3. rivaroxaban (Xarelto 10 mg oral tablet) By Mouth every day. ubiquinone (Co Q-10) By Mouth every day. Comment: Normal [facility] Main OR PACU I Recordon 03 Main OR PACU I Record PACU Phase I Document Type FT Summary Primary Physician: Luis BENSON MD Finalized Date/Time: 05/21/22 15:15:56 Pt. Name: NILO EVONLAW Veras/Sex: 1950 Female Med Rec #: [id number] Physician: Luis BENSON MD Financial #: [id number] Pt. Type: O Room/Bed: / Admit/Disch: 05/21/22 11:58:42 - Institution: Case Times PACU I FT Pre-Care Text: Identifies barriers to communication and implements measures to provide psychological support Develops individualized plan of care, and ensures continuity of care Maintains patient's dignity and privacy, and maintains patient confidentiality Identifies and reports philosophical, cultural, and spiritual beliefs and values Identifies individual values and wishes concerning care Implements aseptic technique, and administers prescribed antibiotic therapy and immunizing agents as ordered Evaluates postoperative tissue perfusion Implements thermoregulation measures, and monitors body temperature Evaluates postoperative respiratory status Evaluates postoperative cardiac status Evaluates postoperative neurological status Assesses pain control, collaborated in initiating patient-controlled analgesia and implements alternative methods of pain control Verifies allergies, administers prescribed medications and solutions, evaluates response to medications Entry 1 In PACU I 05/21/22 13:33:00 Discharge from PACU 05/21/22 14:03:00 I Outcomes Met? Yes Last Modified By: Maryellen Bonilla RN 05/21/22 15:15:32 Post-Care Text: The patient demonstrates knowledge of the expected response to the operative or invasive procedure The patient's care is consistent with the individualized perioperative plan of care The patient's right to privacy is maintained The patient's value system, lifestyle, ethnicity, and culture are considered, respected, and incorporated into the perioperative plan of care The patient participates in decisions affecting his or her perioperative plan of care The patient is free from signs and symptoms of infection The patient has wound/tissue perfusion consistent with or improved from baseline levels established preoperatively The patient is at or returning to normothermia at the conclusion of the immediate postoperative period The patient's respiratory function is consistent with or improved from baseline levels established preoperatively The patient's cardiovascular status is consistent with or improved from baseline levels established preoperatively The patient's cardiovascular status is consistent with or improved from baseline levels established preoperatively The patient demonstrates and/or reports adequate pain control throughout the perioperative period The patient received appropriate medication(s), safely administered during the perioperative period Acuity Level PACU I FT Entry 1 Start Time 05/21/22 13:33:00 Stop Time 05/21/22 14:03:00 Acuity Level Acuity Level I Last Modified By: Maryellen Bonilla RN 05/21/22 15:15:50 Finalized By: Maryellen Bonilla RN Document Signatures Signed By: Maryellen Bonilla RN 05/21/22 15:15 Normal [facility] Main OR Preoperative Recordo n 05-21-2022 Main OR Preoperative Record Holding Area Document Type FT Summary Primary Physician: Luis BENSON MD Finalized Date/Time: 05/21/22 12:19:52 Pt. Name: EVON CORCORAN/Sex: 1950 Female Med Rec #: [id number] Physician: Luis BENSON MD Financial #: [id number] Pt. Type: O Room/Bed: / Admit/Disch: 05/21/22 11:58:42 - Institution: Case Times Holding FT Pre-Care Text: Verifies consent for planned procedure, identifies individual values and wishes concerning care, includes family members in perioperative teaching Secures patient's records' belongings, and valuables, maintains patient's dignity and privacy, and maintains patient confidentiality Entry 1 In Holding 05/21/22 12:09:00 Outcomes Met? Yes Last Modified By: Fritz Dover RN 05/21/22 12:09:05 Post-Care Text: The patient participates in decisions affecting his or her perioperative plan of care The patient's right to privacy is maintained Surgery Checklist FT Entry 1 Patient Birthday, ID Band Procedure History and Physical, Identification: Check, Patient Verification: Surgical Consent, With Participation Patient NPO after Midnight: No Date/Time: 05/21/22 10:00:00 Results Reviewed clear liquid bowel Personal Items: Dentures, Glasses, Comments: results Jewelry Personal Items heart stent x3 eft leg Limitations: none Comment: stent , ring x1, glasses, upper dentures Complaints of Pain: No Pain Comment: pt denies any pain at this time Operative Site n/a Marked By: n/a Marking: Location: n/a Availability Equipment Verified: Does Patient Smoke No Patient states Yes Comment - Adult - Antonio postop adult Supervision supervision available Case Cancelled in No Holding Area see comments below for reason Last Modified By: Fritz Dover RN 05/21/22 12:19:50 General Comments: pt finished bowel prep at 1000, per patient nothing to eat or drink since finished prep MSRN Finalized By: Fritz Dover RN Document Signatures Signed By: Fritz Dover RN 05/21/22 12:19 Normal [facility] Monitor Recordon 05-21-2022 Monitor Record [id number] D:127 Normal [facility] Monitor Record [id number]#[id number] D:127 Normal [facility] Outpatient Surgery Discharge Instructionon 05-21-2022 Outpatient Surgery Discharge Instruction [place] [id number] Patient Discharge Instructions PERSON INFORMATION Name: EVON CORCORAN Date of : 1950 Current Date: 05/21/2022 13:44:53 PHYSICIANS Admitting Physician: Luis BENSON MD Discharge Diagnosis: Diarrhea EVON CORCORAN has been given the following list of follow-up instructions, prescriptions, and patient education materials: PATIENT FOLLOW-UP INFORMATION Diet: Regular Discharge Activity: Resume normal activities in 24 hours Discharge Restrictions: No driving for 24 hrs, Do not operate machinery or tools, Do not make important decisions for 24 hours IF UNABLE TO CONTACT YOUR PHYSICIAN AND YOU FEEL IT IS AN EMERGENCY, GO TO THE NEAREST EMERGENCY ROOM OR CALL 911 INILO KAREN L, have received the attached patient education materials/instructions and have verbalized understanding: May we do a follow up call? Yes No I was present when discharge instructions were given Patient Signature Date Clinican/Nurse Signature _ Date Follow up: With: Address: When: Luis BENSON [address] [place] [address]. [address] [place] [address] [phone] Business (1) Comments: office will call for follow up Pharmacy Information: [facility] You may receive a survey from Angeli Becerra asking you to rate your care experience. Your feedback is important and will help us understand what we do well and how we can improve the quality of care we provide to you, your loved ones and our community. It?s an honor to serve you. Thank you for choosing [facility] HERE ARE THE MEDICATION CHANGES THAT OCCURRED DURING YOUR HOSPITAL STAY Medications to Continue Taking That Have Changed Other Medications START: atorvastatin (atorvastatin 40 mg Tab) 1 Tablets By Mouth every day for 90 Days. Refills: 3. Medications to Continue with No Changes Other Medications amlodipine (amLODIPine 5 mg Tab) 1 Tablets By Mouth every day. aspirin 81 Milligram By Mouth every day. chlorthalidone (chlorthalidone 25 mg Tab) 1 Tablets By Mouth at bedtime. Refills: 1. cilostazol (Pletal 50 mg oral tablet) 1 Tablets By Mouth 2 times a day. Refills: 5. insulin degludec (Tresiba FlexTouch 100 units/mL subcutaneous solution) 30 Units Subcutaneous 2 times a day. Dx E11.65. Refills: 11. insulin lispro (Lyumjev KwikPen) losartan (losartan 50 mg Tab) 1 Tablets By Mouth 2 times a day. metoprolol (Metoprolol succinate 50 mg ER Tablet) By Mouth every day. Misc Prescription (Glucometer) Dx: E11.9 Directions: Test BID. Refills: 0. Misc Prescription (Lancets) Dx: E11.9 Directions: BID. Refills: 11. Misc Prescription (Test strips) Dx: E11.9 Directions: BID. Refills: 11. multivitamin (Multi Vitamins oral tablet) 1 Tablets By Mouth at bedtime. nitroglycerin (NitroStat 0.4 mg Tab) 1 Tablets Sublingual every 5 minutes as needed Chest pain. potassium chloride (potassium chloride 10 mEq Cap-ER) 1 Capsules By Mouth every day. Refills: 3. rivaroxaban (Xarelto 10 mg oral tablet) By Mouth every day. ubiquinone (Co Q-10) By Mouth every day. PATIENT EDUCATION INFORMATION Instructions: Colonoscopy Care After Surgery Please read the instructions outlined below and refer to this sheet in the next few weeks. These discharge instructions provide you with general information on caring for yourself after you leave the hospital. Your doctor may also give you specific instructions. While your treatment has been planned according to the most current medical practices available, unavoidable complications occasionally occur. If you have any problems or questions after discharge, please call your doctor. ACTIVITY You may resume your regular activity, but move at a slower pace for the next 24 hours. Take frequent rest periods for the next 24 hours. Walking will help get rid of the air and reduce the bloated feeling in your abdomen (belly). No driving for 24 hours (because of the anesthesia (medicine) used during the test). You may shower. Do not sign any important legal documents or operate any machinery for 24 hours (because of the anesthesia used during the test). NUTRITION Drink plenty of fluids. You may resume your normal diet as instructed by your doctor. Begin with a light meal and progress to your normal diet. Heavy or fried foods are harder to digest and may make you feel nauseated (sick to your stomach). Avoid alcoholic beverages for 24 hours or as instructed. MEDICATIONS You may resume your normal medications unless your doctor tells you otherwise. WHAT YOU CAN EXPECT TODAY Some feelings (more content not included)... Normal [facility] Patient Education - Texton 0 05-21-2022 Patient Education - Text Colonoscopy Care After Surgery Please read the instructions outlined below and refer to this sheet in the next few weeks. These discharge instructions provide you with general information on caring for yourself after you leave the hospital. Your doctor may also give you specific instructions. While your treatment has been planned according to the most current medical practices available, unavoidable complications occasionally occur. If you have any problems or questions after discharge, please call your doctor. ACTIVITY You may resume your regular activity, but move at a slower pace for the next 24 hours. Take frequent rest periods for the next 24 hours. Walking will help get rid of the air and reduce the bloated feeling in your abdomen (belly). No driving for 24 hours (because of the anesthesia (medicine) used during the test). You may shower. Do not sign any important legal documents or operate any machinery for 24 hours (because of the anesthesia used during the test). NUTRITION Drink plenty of fluids. You may resume your normal diet as instructed by your doctor. Begin with a light meal and progress to your normal diet. Heavy or fried foods are harder to digest and may make you feel nauseated (sick to your stomach). Avoid alcoholic beverages for 24 hours or as instructed. MEDICATIONS You may resume your normal medications unless your doctor tells you otherwise. WHAT YOU CAN EXPECT TODAY Some feelings of bloating in the abdomen. Passage of more gas than usual. Spotting of blood in your stool or on the toilet paper. FOLLOW-UP Your doctor will discuss the results of your test with you. SEEK IMMEDIATE MEDICAL ATTENTION IF: There is more than a spotting of blood in your stool. There is abdominal distention (your abdomen is swollen). There is vomiting. You have a temperature over 101.5 F. There is abdominal pain or discomfort that is severe or gets worse throughout the day. Oncology Colon Polyps Polyps are tissue growths inside the body. Polyps can grow in many places, including the large intestine (colon). A polyp may be a round bump or a mushroom-shaped growth. You could have one polyp or several. Most colon polyps are noncancerous (benign). However, some colon polyps can become cancerous over time. Finding and removing the polyps early can help prevent this. What are the causes? The exact cause of colon polyps is not known. What increases the risk? You are more likely to develop this condition if you: ? Have a family history of colon cancer or colon polyps. ? Are older than 50 or older than 45 if you are . ? Have inflammatory bowel disease, such as ulcerative colitis or Crohn's disease. ? Have certain hereditary conditions, such as: ? Familial adenomatous polyposis. ? Blount syndrome. ? Turcot syndrome. ? Peutz?Jeghers syndrome. ? Are overweight. ? Smoke cigarettes. ? Do not get enough exercise. ? Drink too much alcohol. ? Eat a diet that is high in fat and red meat and low in fiber. ? Had childhood cancer that was treated with abdominal radiation. What are the signs or symptoms? Most polyps do not cause symptoms. If you have symptoms, they may include: ? Blood coming from your rectum when having a bowel movement. ? Blood in your stool. The stool may look dark red or black. ? Abdominal pain. ? A change in bowel habits, such as constipation or diarrhea. How is this diagnosed? This condition is diagnosed with a colonoscopy. This is a procedure in which a lighted, flexible scope is inserted into the anus and then passed into the colon to examine the area. Polyps are sometimes found when a colonoscopy is done as part of routine cancer screening tests. How is this treated? Treatment for this condition involves removing any polyps that are found. Most polyps can be removed during a colonoscopy. Those polyps will then be tested for cancer. Additional treatment may be needed depending on the results of testing. Follow these instructions at home: Lifestyle ? Maintain a healthy weight, or lose weight if recommended by your health care provider. ? Exercise every day or as told by your health care provider. ? Do not use any products that contain nicotine or tobacco, such as cigarettes and e-cigarettes. If you need help quitting, ask your health care provider. ? If you drink alcohol, limit how much you have: ? 0?1 drink a day for women. ? 0?2 drinks a day for men. ? Be aware of how much alcohol is in your drink. In the [place] one drink equals one 12 oz bottle of beer (355 mL), one 5 oz glass of wine (148 mL), or one 1? oz shot of hard liquor (44 mL). Eating and drinking ? Eat foods that are high in fiber, such as fruits, vegetables, and whole grains. ? Eat foods that are high in calcium and vitamin D, such as milk, cheese, yogurt, eggs, liver, fish, and broccoli. ? Limit foods that are (more content not included)... Normal [facility] Progress Note-Physicianon Progress Note-Physician Patient: EVON CORCORAN Age: 71 years Sex: Female : 1950 Associated Diagnoses: None Author: Nahun PIMENTEL, Vinod Greer Postoperative Information Postoperative disposition: Postoperative disposition: To PACU. Optimetrix number: Optimetrix number [id number]. Anesthetic utilized: General. Physical Examination Vital Signs 05/21/2022 13:40 EST Heart Rate Monitored 83 bpm Respiratory Rate Monitored 24 br/min Systolic Blood Pressure 126 mmHg Diastolic Blood Pressure 69 mmHg SpO2 94 % 05/21/2022 13:35 EST Heart Rate Monitored 93 bpm Respiratory Rate Monitored 65 br/min Systolic Blood Pressure 126 mmHg Diastolic Blood Pressure 69 mmHg SpO2 94 % 05/21/2022 13:33 EST Temperature Temporal Artery 36.7 DegC Heart Rate Monitored 84 bpm Respiratory Rate Monitored 128 br/min Systolic Blood Pressure 112 mmHg Diastolic Blood Pressure 78 mmHg SpO2 93 % Pain Assessment: 0/10. General: Awake, Alert, Appropriate. Respiratory: Adequate air exchange, Equal bilateral chest wall expansion. Cardiovascular: Stable. Neurological: At Baseline. Assessment Anesthetic outcome No anesthetic complications noted. Review / Management Condition: Stable. Plan Transfer/Discharge: Transfer/Discharge Discharge when meets criteria ( To home ). Normal [facility] Comment on above: Result Comment: Elec tronically Signed By: Vinod Garnica MD\.br\Date and Time Signed: 05/21/22 14:40 EST Progress Note-Physician Patient: EVON CORCORAN Age: 71 years Sex: Female : 1950 Associated Diagnoses: None Author: Vinod Garnica MD Preoperative Information Anesthesia Preop Info: Time patient last ate or drank 05/21/2022 10:00:00. Anesthesia history: Patient history: None. Family history+: None. Informed consent: Signed by patient. Review of Systems Eye: Negative. Ear/Nose/Mouth/Throat: Negative. Respiratory: Negative. Cardiovascular: Negative. Gastrointestinal: Negative. Genitourinary: Negative. Hematology/Lymphatics: Negative. Endocrine: Negative. Musculoskeletal: Negative. Neurologic: Negative. Health Status Allergies: Allergies (8) Active Reaction Aldactazide Hives Cardura Unknown Diovan Unknown Glucophage None Documented hydrochlorothiazide-lis inopril Diarrhea Hytrin None Documented Prinivil None Documented Zestril Diarrhea Current medications: Home Medications (17) Active amLODIPine 5 mg Tab 5 mg = 1 tab(s), Oral, Daily aspirin 81 mg, Oral, Daily atorvastatin 40 mg Tab 40 mg = 1 tab(s), Oral, Daily chlorthalidone 25 mg Tab 25 mg = 1 tab(s), Oral, Bedtime Co Q-10 , Oral, Daily Glucometer See Instructions Lancets See Instructions losartan 50 mg Tab 50 mg = 1 tab(s), Oral, BID Lyumjev KwikPen Metoprolol succinate 50 mg ER Tablet , Oral, Daily Multi Vitamins oral tablet 1 tab(s), Oral, Bedtime NitroStat 0.4 mg Tab 0.4 mg = 1 tab(s), PRN, SubLingual, q5min Pletal 50 mg oral tablet 50 mg = 1 tab(s), Oral, BID potassium chloride 10 mEq Cap-ER 10 mEq = 1 cap(s), Oral, Daily Test strips See Instructions Tresiba FlexTouch 100 units/mL subcutaneous solution 30 unit(s), SubCutaneous, BID Xarelto 10 mg oral tablet , Oral, Daily , Medications (1) Active Scheduled: (0) Continuous: (1) Sodium Chloride 0.9% 1,000 mL 1,000 mL, IV, 20 mL/hr PRN: (0) Problem list: All Problems Bile salt-induced diarrhea / SNOMED CT 495541914 / Confirmed BRBPR (bright red blood per rectum) / SNOMED CT 895313441 / Confirmed CAD in [place] artery / SNOMED CT 38208152 / Confirmed Change in bowel habits / SNOMED CT 061116500 / Confirmed Chronic renal impairment, stage 3a / SNOMED CT 9484519225 / Confirmed Claudication of both lower extremities / SNOMED CT 690188445 / Confirmed Familial hypercholesteremia / SNOMED CT 8922250830 / Confirmed History of colon polyps / SNOMED CT 1176823367 / Confirmed History of DVT in adulthood / SNOMED CT 6009189069 / Confirmed HTN - Hypertension / SNOMED CT 3742324583 / Confirmed Hx of colonic polyps / SNOMED CT 5452746044 / Confirmed Internal hemorrhoids with complication / SNOMED CT 2251709120 / Confirmed Mild nonproliferative diabetic retinopathy of both eyes / SNOMED CT 570414872 / Confirmed noted in 08/21/2019 Diabetic Eye Exam. added per outpatient [facility] policy. Non-smoker / SNOMED CT 01564655 / Confirmed Type 2 diabetes mellitus with hypercholesterolemia / SNOMED CT 687779715 / Confirmed linked DM with hypercholesterolemia per outpatient [facility]I policy. 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 No Do you ever drink more than intended? No Has anyone been hurt or at risk by your drinking? No Ready to change: No Concerns about alcohol use in household: No 11/05/2017 Type: Wine Frequency: 1-2 times per year Substance Abuse 11/21/2011 Risk Assessment: Denies Substance Abuse Tobacco 11/21/2011 Risk Assessment: Denies Tobacco Use 05/05/2022 Tobacco Use: Never (less than 100 in l Smokeless tobacco use: Never . Physical Examination Vital Signs 05/21/2022 12:29 EST Systolic Blood Pressure 183 mmHg HI Diastolic Blood Pressure 68 mmHg Blood Pressure Location Left arm 05/21/2022 12:28 EST Temperature Temporal Artery 36.8 DegC Heart Rate Monitored 94 bpm Respiratory Rate Monitored 20 br/min Systolic Blood Pressure 210 mmHg HI Diastolic Blood Pressure 110 mmHg HI Blood Pressure Location Left arm SpO2 96 % Measurements from flowsheet : Measurements 05/21/2022 12:19 EST Height/Mike (more content not included)... Normal [facility] Comment on above: Result Comment: Elec tronically Signed By: Nahun PIMENTEL, Vinod Greer\.br\Date and Time Signed: 05/21/22 12:46 EST Giardia, Direct, EIAon 05-14 G. lamblia Ag IA Ql (Stl) Negative Invalid Interpretation Code Negative [facility] Comment on above: Result Comment: Perf ormed at: [facility] [address] [id number] PhD Armin Zaldivar Performed By: #### 1 [id number] #### [facility] [address] [place] [address] O & P EXAM, ROUTINE, REFLEXo n 05-14-2022 Ova and parasites identified Concentration Nom (Stl) Comment Invalid Interpretation Code [facility] Comment on above: Result Comment: No o va, cysts, or parasites seen. One negative specimen does not rule out the possibility of a parasitic infection. Performed at: [place] [id number] [place], [place] [id number] PhD Armin Zaldivar Performed By: #### 1 [id number] #### [facility] [address] [place] [address] O & P Exam, Routineon 2022 Ova and parasites identified LM Nom (Unsp spec) Final report Invalid Interpretation Code [facility] Comment on above: Result Comment: Thes e results were obtained using wet preparation(s) and trichrome stained smear. This test does not include testing for Cryptosporidium parvum, Cyclospora, or Microsporidia. Performed at: [facility] [address] [place], [place] [id number] PhD Armin Zaldivar Performed By: #### 1 [id number] #### [facility] [address] [place] [id number] Coding Summary.on 05-12-2022 Coding Summary. CD:[id number] Gh0 bWw+PGhlYWQ+RU3ALOAoQ23 fpJIfrB3IP4nEBA9TFESOBS FKIQ3LEV4sxKH4XYrxX5Ipn iAv UqovvOAhVF72WLm6PVY6vFb fBXqzcM2spFWeM4t1YnNjCJ 12gB26SFceDTHjZpD8LaGly jsgbWFy Y5ayQnLmcUIkMua+PHRhYmx lIHdpZHRoPScxMDAlJyBzdH zqIG7wFb4oGLUaLHPrtVjeo HNlOiBj u7etQTEoCBnaJT2fmMmdD1D gpSJ9GCCkw3u3Dg22wEW+PH QiZQV2jAnbKVnxu327BmRbd 8qdFWF3 xQQpZZqeYYU3Z25sj0R6IBQ iHWPjGVH9rEQ8iO6kgWqtza tvP5SrcXKrRzL9YBS1qZWjk Z8xuUjh mngctW2cRqs+U02SRQ7XQYT XXM1ZGjy6F3RfUnhhfIZ+PC 48GKMiJA65oSIzwDTqm7tpe Sv9KyXk GDYfVDV1rNccVSisu5RmIXP nF46fqPFth2K2DYFlvXblrH OyEzIqmTE0gD0wIMshbrgxm 2hvdzsn Ertrs1wdrc27nM24O25aJOr nKJUyAIL2XAWrFCWhnJolvq 6fzG7zIh7+BBzrz2mkr0qvc Bb5AyNw QPRpmpPziIsoWNF8i8TaVd7 3J4YfeZnwx4MwXmi0ne21uP Kfw7Q4bWI1MDbsQNBwyA0oP WxlZnQ6 LXHlLmCkrZ80sLJlDMvxDy3 lpBqduXcoFE8hBGUoayeqML JfrD6cEGIveUSgvJkyWU1dT TBpbjtm i433OqJwOXA4HAGkyWJmF0L nyP7bUpJoKOZsIVCnF7SxeV ZpDZcpG329ZJmwOuY3PFAlr xTdC2Ig FRMpnXzbJuJ9g1D5Qt8Iz9I titlpGTV1PYtoKDItYwK1Xv YaKnR0F2DlBbl5WVGkoModY C9wC1Io NFAsphbuookynFV7EYYwSXL cpQ68xAYoIHekEz3rs1C9n9 75GRQsIKGdkU17Yc0hoZpcJ TBwdCBU rF9mhbito1hmgrefDkEcGOW fEKd9CDl3RIWgpKosKdGpMN T0ShV9YBD1qQMorW6poBjir wxooS3v Oyc+D50toJ8oLKT3CGL0fsc aDLSmqtVdZH15OU65L7LiOx wvdGFibGU+PGRpdiBzdHlsZ D7qAyAe x7rrw3XkMVpzE9JeGXMbGMj eEjt3IFGdUHF5eDY7cD9cRL EqHKulk9A0fLT0N4IjdgEeh b1fx6yv UWOqHIziB94wvWMzn1E2LNZ rvAW7QLKhhPrfSoTshE57Co c+FSSgaArub4AhWbdhh7bph 9fcjRo0 TpFpRJKoevSdcOzwEJF4v0M dDl97T54fFEqaADUpJIRpHG JiTPYacDruik4peC0rJw7+P GNvbCB3 mIV8tW7lISPjVtG4FOdhH70 1BxQygFFgMtgmh6tij7lfjP e1GxArUZEyqnXtaXswKKM8z 3NtIn08 K69sJGgsVOKtAWAtFSYzXWJ szHyinp7kaM5aYz2+PC9jb2 vajb26gZ81qKL+CXEuAJN7m WxlPSdw LDHsgV4cFIwnVbM8UIJhNqH atB62iURuCJbdXx5mhOejwW flQN1kDAFciclhf062HfFhr 2xkIDEw rDSdFDukYUS7T48jx8T3VRP sNWSwTTX1zYV8vI1wbCaemn ogbGVmdDsgdmVydGljYWwtY EetK918 IHRvcDsnPlBhdGllbnQgTmF rUVh4W6OtSmc9CXNmhIanBG 7nsZScZOrnPg0oxJljvClhA Y5wSZBi nzcxn836RbGth5kxYOMvgMF zHVhkQWY6E84vp7Y8FGQuBI NkRDJ9fHF2tF1rwTdfhqjar GVmdDsg siPlvKlxAAjfBFixA037MOK uhQbtEsBzyzMzZRQpkFH9ST 77EQ71cWMpq5L3uDU1D0KmV GRpbmct rkyliJA7NLNkEFZznU43Bt9 ghOpwXp4uQKSyOIJ2YABvxY NrV7FfzG7fSnNvGVLhXPSlB 3RleHQt XMjiW071XFykGtL7NWKekyY hN5GhXSBcgHqnUbB1i5I7Er 2MN9F7WN48ZH76yIMeo7G6l WL3U1Mf CRJabqalizjheSD8CSHlUYF qqM53Qn1quYozSn6sPCPpVO Z6RAYlpULnC0TdvR1rJrWqY DAwMDAw A4YbqPOrIMcxR146ZVtbDiP 2VPIlffLxA3XwOSLwpXwsIy Q4q4X5Cy6KEKz7ZR68AR25z TRts4V5 bQS5V4LlGNRvqouxbgemmXV 1DPUeGPWohC51Ut5sbDstKi 7aAGRfVVQ8MUBweYYqZ9Uwv S4qQuTb UENlNAIzZ2IaiDXfBLsqM91 0DIinOeL3UFZunlXjZ3IqJF ByfMzhFlF9p7Y3Iz6XXRMiX G79GEC0 sIC8HL68OM09N3JbSyzhtAA ibGU+PHRhYmxlIHdpZHRoPS okIKMcQtIkoQkfMO8pJq0uJ GVyLWNv sLbhsJOmQsScu2bfLXBiMAs mTL4bxDneX0KapFW9LMAlv0 y3Ud20J22sP5ZecVW+PGNvb EP1iBZ8 eW5rNlUjJmV9DMqxV548FxZ qiSPpHmsby7fpd7uddPp1Pb S2SFZgqsLhqKmoTJV6x7SxQ z40H82a IHdpZHRoPSIxNSUiIHZhbGl kwl6yfD8nPq0+EHJyqMU2jP G4eP3oYxNbLiL9WKqsB411E nRvcCIv Medou6eey8tcxQf2PcMtKDH bdaLvuFkhXTD2g1BdCd36D5 JmwIjzi4HtFgq5kp67dRLop 1X4kAC8 C0MrOCWcajzjtIWyeAxoXR6 hQXWwsufvSKPkkY1eKTCkZ1 y8DwViXpR6CZsoF0TezuV3H DEwcHQg TIdwBOZ3E53ak4V6CGOvHCP jIUP6gFX2dG9ynTjkehzucI VmdDsgdmVydGljYWwtYWxpZ 246IHRv bEloGAZuzP6nZWGxpKSfrZk eMW3wKZQrscrqYeJJYB8CD9 sMXztkK0HEOR3eLXzxaGI+P HRkIHN0 lGytHRkbJLRhmI8jVHKrR0s 3IlKvBdO6JVqmV9WtXWVocx euSo58tJ4rAjOdJpK5PXiqB 1KcixX5 PPWutDUmFUqlQUC4D62ip6P 9UEZtQTQeKEE1qNT9vV2abH lnbjogbGVmdDsgdmVydGljY WwtYWxp O993IYYtaHmjPmR6UyXtSuD 7FXX9I3PqLxt6FRBhnPsuCF 8zdLLqQJixQp6pcHrjoIyoC T4pHQQo qlnpPAEuvC3nVAPqvJChyWd nKE8kVAJxbwlzk269XaCrPF M3KYQxiDJkN7RsjK3yJsJfR DAwMDAw V2FgiVTuWFfnP723MVbyUsL 6TEFnfsLdT3ZgRIQtnEwjNd P5j2W6Ga35CwLUNFDqtzgjh GQ+PHRk XKL1fShbYOhoNPYltZ6eKNW gB6a6JdFcSiZ7UFysO6LlVG PmjcrgFm33xN5oNwHhAzB9Y AjaR4Cc pyR3LKDjaDZmVMmnYJH8R18 jy4R2ZYDmXBFpGKQ4zVL7cR 1hbGlnbjogbGVmdDsgdmVyd GljYWwt NPlsW774WEJpgMfdUuJecQP sZTwvdGQ+HIKrUUI9tFekGP cwKNRhsK5zGAOzJ0h5EqFqD fR1QNvr X1KgAQZdwwpbUv61pL3xXyB ySdW4BOflG8JqqtM9XMPaeM IdEYamGOA6S57xu4R1CUXwG DAwMDA7 mIH3kZ2ukNbtgemphPBnhDc tcjMdkRzkHXvgDHngB938DU EfyBeaEurfIoHOwi1sIP2mG jwvdGQ+ BR62fe34W5WhWtsxCun8HGY iVRY9xQR5gV2xQCDwENbpc3 P8pTA3V3YacyJsen6nu9btA XBzZTog S72exIOgg4G7QDJkhHQ6HQQ fnSxtZpOatW71Jid+PGNvbG ixj7TcLdcth7prg2pqfIi9C jMwJSIg veJboXvwCQL3f9VbGb79E30 sIHdpZHRoPSIzMCUiIHZhbG qumc9ekQ2yAd3+NYSjlXP8r UC4vQ0a YuErLmU8NTgqM860WsTkbPN hUewfc3bsb3hjwBd0QpMwPL ChvfTvpQrwTDQ9q0HhQg93A 2NvbGdy w9GdEcg0sm05dPDwx8H6jIP 9W1YsQZMjpcikhWCecVupHJ 3zQMNybrfxMUWjtC9gRJNcW 6h6BtYg HxC3RRsgV3OjhdW7RLEacCQ wPYCimPRRlL4hejfui5mmsj lpSvQrBUJrCLl3SVp1ISGlp WduOiBs KZH2DpT7KAH6kTUdoQ2icBc khsqlmO1uFkx+BHc9v1jnjB BvDK5xzYW6UT24AZ02oCYsu 9L0qQO2 A7OnPWDsefszsnqggHV7SEP jZFPnaX89Xe5fpCzgFx1gPN VhBSX1JVFbyAWdF3GopE8eS iAjMDAw HXRcT0MybYAfQEliR252MWv rOrT4RZRvamEmM3LgDQIshS huTaQ8x1X8Tw6TSD20NA95Y I15lVPb u5Z1jQX1D1HnXFNirspyoga egEL7XTCqSGIymN47Sa4boB jdBy8rUFIeUCF3ACPjjVTpX 3ZbhG1t XvJlGUQqLUAkV3FooNGoQYg kB446YQtzAhH2SRFmvbImE5 FwUGKimZzjOmY5z8L7Xy1LR f81OB64 ZL12tMXlm6I9sWR2U2DqPCT emljlpswztTJ0NXMsZAKvkO 97Pi7fdLvlEt4sYDUcJNN6P FRpbWVz L9KmnQ9kMsXnEGLxDSYeH8T hhSRuFXgfJ168KKhwKdW7UN MjtdScT2PhVXWpwXfdQrF9j 4N4Hn2S HDelmnj4S1YfVfrvzAK+PC9 3GYTuGF52nWKubGGen2fotM c5MjYwDFAtAAW8iWvbBKayc 3JkZXIt Y29s (more content not included)... Normal [facility] CDiff PCRon 05-08-2022 CDiff PCR Unable to perform te st due to consistency of stool. C. Difficile testing will only be performed on diarrheal (unformed) stool unless ileus due to C. difficile is expected. Reference: Clinical Practice Guidelines for Clostridium difficile Infection in Adults, Infection and Hospital Epidemiology July 2009, Vol 31, No 5. Normal [facility] Cdiff Specimen Acceptable Unacceptable Normal [facility] Comment on above: Performed By: #### 1 [id number] #### [facility] [address] [place] [id number] Order Cancelled YES Normal [facility] Comment on above: Performed By: #### 1 [id number] #### [facility] [address] [place] [address] Enteric Panel by PCRon 05-08 C. coli+jejuni+upsalie nsis DNA ARCELIA+non-probe Ql (Stl) Not detected Normal [facility] Comment on above: Result Comment: Test ing was performed utilizing reverse nailing machine operator automatic (RT), polymerase chain reaction (PCR), and array hybridization to detect specific gastrointestinal microbial nucleic acid gene sequences associated with the following pathogenic bacteria and viruses:Campylobacter Group (composed of C. coli, C. jejuni, and C. pool), Salmonella species, Shigella species (including S. dysenteriae, S. boydii, S. sonnei and S. flexneri), Vibrio Group (composed of V. cholera and V. parahaemolyticus), Yersinia enterocolitica, Norovirus GI/GII, and Rotavirus A. In addition, EPdetects Shiga toxin 1 gene and Shiga toxin 2 gene virulence markers. Shiga toxin producing E. coli (STEC) typically harbor one or both genes that encode for Shiga toxins 1 and 2. Campylobacter group, Salmonella species, Shigella species, Vibrio group, Rotavirus A, Shiga Toxin 1, Shiga Toxin 2, Norovirus GI/GII, and Yersinia enterocolitica were tested by Verigene nulcleic acid test. Performed By: #### 1 [id number] #### [facility] [address] [place] [address] E. coli stx1+stx2 genes ARCELIA+non-probe Ql (Stl) Negative Normal [facility] Comment on above: Performed By: #### 1 [id number], [id number] #### [facility] [address] [place] [address] Enteric Panel by PCR Negative Normal [facility] Enteric Panel Intrl QC Pass Normal [facility] Comment on above: Result Comment: Test ing was performed utilizing reverse nailing machine operator automatic (RT), polymerase chain reaction (PCR), and array hybridization to detect specific gastrointestinal microbial nucleic acid gene sequences associated with the following pathogenic bacteria and viruses:Campylobacter Group (composed of C. coli, C. jejuni, and C. pool), Salmonella species, Shigella species (including S. dysenteriae, S. boydii, S. sonnei and S. flexneri), Vibrio Group (composed of V. cholera and V. parahaemolyticus), Yersinia enterocolitica, Norovirus GI/GII, and Rotavirus A. In addition, EPdetects Shiga toxin 1 gene and Shiga toxin 2 gene virulence markers. Shiga toxin producing E. coli (STEC) typically harbor one or both genes that encode for Shiga toxins 1 and 2. Performed By: #### 1 [id number], [id number] #### [facility] [address] [place] [address] Norovirus genogroup I+II RNA ARCELIA+non-probe Ql (Stl) Not detected Normal [facility] Comment on above: Performed By: #### 1 [id number] #### [facility] [address] [place] [address] Rotavirus A RNA ARCELIA+non-probe Ql (Stl) Not detected Normal [facility] Comment on above: Performed By: #### 1 [id number], [id number] #### [facility] [address] [place] [id number] S. enterica+bongori DNA ARCELIA+non-probe Ql (Stl) Not detected Normal [facility] Comment on above: Result Comment: This test result should be correlated with clinical presentations and medical history by a healthcare provider to determine its clinical significance. Performed By: #### 1 [id number], [id number] #### [facility] [address] [place] [id number] Shigella species+EIEC invasion plasmid antigen H ipaH gene ARCELIA+non-probe Ql (Stl) Not detected Normal [facility] Comment on above: Performed By: #### 1 [id number], [id number] #### [facility] [address] [place] [id number] V. cholerae+parahaemol yticus+vulnificus DNA ARCELIA+non-probe Ql (Stl) Not detected Normal [facility] Comment on above: Performed By: #### 1 [id number], [id number] #### [facility] [address] [place] [address] Y. enterocolitica DNA ARCELIA+non-probe Ql (Stl) Not detected Normal [facility] Comment on above: Performed By: #### 1 [id number], [id number] #### [facility] [address] [place] [address] Fecal WBC Lactoferrinon 04-17 Fecal WBC Lactoferrin Negative Normal Negative [facility] Comment on above: Result Comment: The semi-quantitative detection of elevated levels of fecal lactoferrin is a marker for fecal leukocytes and an indication of intestinal inflammation. Performed By: #### 1 [id number], [id number] #### [facility] [address] [place] [address] MICRO OTHER TESTSOrdered By: Cynthia Case on 05-08-2022 Fecal WBC Lactoferrin Negative (05/08/22 9:00 AM) Normal Negative [facility] Coding Summary.on 05-07-2022 Coding Summary. CD:[id number] Gh0 bWw+PGhlYWQ+PE2GWHLuY25 vdMTxyB3JP9hPOC8QRNXMLK EBHJ7NIG2pjAC7NMyqO5Wsi iAv NgntqHXhIQ92JOd4DII8oUy cQVltwZ5ttTShV8t6RmKrHB 67wR41HDiySEBeHpT0BmSsa jsgbWFy B3ycKjZiyANvFur+PHRhYmx lIHdpZHRoPScxMDAlJyBzdH lhTT9pAy2cHVEiNAYmyHhjf HNlOiBj g8xuKELkHTfxGI6gnIyeN8L dgVJ9SSVvi5j9Dr62fVX+PH ZrLSE8jCypQHxre893ObQgk 8kqJLR2 gRTrYGsdTZN0B71rx6C1GXR lRDDtRRO5vVK6iW1mqUoooa erD2HpbAYrArK5RCK3mYQgd B9tbIov unhtaG2mMkn+C60XES0RMGF RGM0EVtz8T6VmAsbknAU+PC 44TDNxKE44gGVxvMUmx3nva Tc3DhWb DEWwCHS7zNiqFEyje9GpMLL iA80rcBQfn7C0IVTniNhkyV GsZzZuyPU7sO9xBSjvzppui 2hvdzsn Jwavi6iwfy14vP11J55kBYd cJUNjZUY6HPIqVSPhuLnhir 1pfK2oMp6+GHvvu5vzr3sew Yt0ZtSa USBhxgWwzGypEWP8e4XtFf7 8T1JmoJaaz1ZjAiu0fx79rD Vxz4B6xGV5OWzmCHIxrP0hV WxlZnQ6 WXNnIvCwxS57fCTiQLbmYj9 zoUunbSpvUG4nCTMyeilbSM FglY8tLVYotWQvjVpaGS2mP TBpbjtm a465JgCeWIW7FLEgbQDoK3K izB5uEcHmTGNtKWSeN6FwyZ ScAFkpL440IZjoTvM1PALsl hIuJ0Rd ATIevOmnHmQ3t6A1Ax7Ua9F pdzmxIKF2TGetXHRbVxIyNk QcPyL6D4GsRsl6BVJpsSohF D3tJ7Wy CBIiqerooygxpTR5IRTaTKE moT03dMWcKSpwPl1fo0A7e2 13NVFnAVCjbS33Le8mnItfQ TBwdCBU nG2lhpkmh5wnkbjpWvFfMDK nBDo8OTd0UARjxJirOyPvHL O6WgI5DJR7kBKvqF2xfLffr gxbxX5q Oyc+G59xxT2rCVB0YIM4bob nVDKgimAcPM03XX48Y6XcXe wvdGFibGU+PGRpdiBzdHlsZ I4yJcQc f9kbs3AdJRyjG8DcQMVzMJo pQuq6OPZgZZR4yJA7eI7eMF SxFEioy4C8rLM8U4XljrUdo k1mm2bk EYPvPEqiD20bbDRhc1Q7PDU kyZD4WTRwfTzaMpTriC64Xa c+ATWzlOykn3UdTouep4gee 6mddId1 WxZsJMNmjsRgvBozRXC8q0R zQd65U20xSVbrYFSpHXOwQR BfRTBmzDewal5ntI9dUa3+P GNvbCB3 rHC3tY7pGHQkHsH3QTvtL05 8NjUijVPtEfdhl2uio5ntzZ x6HoYlCAPymiKaaWaaUQU8i 9CuLg31 P92eZUywJZSvXTZuFYIuJAX mfJvkee1bkI9rQu3+PC9jb2 vcdw30dV30tYY+AKEtZSR1c WxlPSdw TNVbiR8bYHnpVaL1PLJsFqQ ymD55zXDgOLbeVo0etLsjrJ kdAL1aUHLsuxfiu527UtSxc 2xkIDEw tLOzKPdlMTT7G39sl8J7LGW iJUAtIQW7sXN8dF7duAjvdf ogbGVmdDsgdmVydGljYWwtY TwaY432 IHRvcDsnPlBhdGllbnQgTmF wVTn5L9GtWef2GXMvbWeeQK 7aaTLmPOibUt7bvIwopPtwI F3hJCKx dqsan640VeHee3rcFMBbyJO mQUhmQDV9B57jw9L3EUHiGI XyHNG6eOW3nR0ocGhvpbrof GVmdDsg ohRreNfcJOepFEznH613BGV gxOdoGpTwslXrSIJqfJT3XY 72UB21qFVqe3B7yEP7U9LpH GRpbmct qoanyLM6WXNlQEKdrB53Vt0 csYpjCe9dCWIoGIG2SOPgoP MdU0HtgD9cYpUhAQYhOCXmU 3RleHQt GMvaK067OLsxEaJ8BDBpppJ cE0ImKWSfcBfkKeN1g3K7Lu 6QJ7N5LE81QH40eXMmj6I4j EC4M5Jz KXAmkdbyxysmrIA3ILFlQSL wlG31Wf5spCpbXc5hYGMpZS N3BEIduKRzJ9VwuI9qCdVrY DAwMDAw P0FqzJHhWLftG406RGanTaR 0EGNkwrYyQ9DeXSRntLcwMz Y4d8J4Ug1SQTv7NK15QH97s OUir8E3 zVS6K3XmQZYjjfpugifgfVI 0ZRDyFAKnnX29Sx0icEjoTy 7rKDOoQTV3NHNtwXGxZ8Tuh G9nEaFs NYVkQWPdP7YjjXHaLWxyC20 3KHzjGzP6PXFpegAsO0GoCK BfxCooJuM9j8C1Ix3BGYBzW A58IUL4 wSU7KT03FO60B1VhJhseeTG ibGU+PHRhYmxlIHdpZHRoPS tpBMPxCdSruNsnHD1zNf5pC GVyLWNv sNoseMKqPgPgq9wmBIAnVAz lMW5foLihI3DdyIU8ATAbs9 h9Rk06E14gJ1YkhCR+PGNvb DL0hRH2 cI3fTeRkFzN9JVxuW732DgS jgSFxUdifd9oqa8jjkLd1Cs D5AVHaayTtkPqjDQY3t9HzA p68E13y IHdpZHRoPSIxNSUiIHZhbGl rng5qbJ0aOt5+JFBoqOJ9yX R2bP3mYeBgIcI9XAvhE724I nRvcCIv Ryfsq3sfy4lrrQv4ArAiYWC wdeHzuVffHML5q3JxWf30R4 WtmSmzb8ZrEzl2ze22cEXau 5F5rHM7 H6VmPZIxpqzlpTWmoSbwHU8 aEXHbxudcXZCnnE7eYFPaR0 f6XcDmIlL2IAuiS4PctaL7L DEwcHQg XPfpXCM9L25kt8P8WYIlJDQ lWGJ1fVG3tF1byPtmuclrfT VmdDsgdmVydGljYWwtYWxpZ 246IHRv kOggQUGhpZ9kUWEwpEPowOg dRR5kBYYddohcUoMBBT0OB9 pYRaiyQ9SYRN0pAFiumWI+P HRkIHN0 vPyrWRsiEZNqcP7sWIQzX2f 8EaJjKoY6JWmhP1WkDALhke zdTd95bK0nYpBiDtU6HRihD 4EjygL0 VDZmaADwJVpqWXK5C06uo8D 9RBMtXPZdUSQ7zLB1eS4bdF lnbjogbGVmdDsgdmVydGljY WwtYWxp N147VFInlAigTqQ8LfDbXrR 3KZM5D1RlUsy3NMBvnJskAB 7ytSWvNGysFx9bsOiqmEjfE Z7hESYd lcirHRLtkO6zOHBxaOSzyHk kBM8yQZIaipjiw698LtSrQA I0LLQqnMFzQ1UckC8kFyTmL DAwMDAw U3UlsMHcNTzoJ845PWpwSuE 1BKAxnuHqD9TfCCIhwVvxYp V4g3K2Vx76RxUYXQXgzfeld GQ+PHRk BPS2qMzsUGncMTRbeZ5kNWD lF0e5ZqEzNwE1WOvhP6ZsWF DgvsckAg34hW6cCrAjYfI1W EbvS0Zh yfI7NTRkvKPvNUplVUI6G12 sh0H0UTLjRXFiZHH0qNC6sV 1hbGlnbjogbGVmdDsgdmVyd GljYWwt TBjnP594RNJbeFhwMjAbhXQ sZTwvdGQ+SHVxWGD7jEvcXK ydHJLayC9bOYIyL8e3IgRpK zO0DWkw Q9GuGJJbsxjmFa49zX6xUxN iDfX8SFiwY2TkjxF6YPCqxO SgTVrfDWP2R04zx8Z6JNWzI DAwMDA7 lKZ6tX1tkCfxfrpixLGewUx zqsPvwWlbQKqjXJqyI015CK DxyGayPd31cVAsnAzsdaU1M 3RkPjwv dHI+IQ88MWEfHC29vRHwhLO gg1qvfHr3JjQnPNDgYLL3vS fhXUqkn8GmMWFsI89isBXhm 5H6OUIw sXzreVEuUnAtbQR0nN2qVPq lldshh1xzhwwmQnvoe0ykra 00iK47H16zDJafZCZwBSNiS CUiIHZh jLggbx9viL7rKp5+PGNvbCB 1nDR7rJ9cXvVbUfO6UJyfX7 17IpDgrZCmBkhje2uzw9zyu Eh0UbZb CVIvvgKqkYsbMQU2i9TmHs0 7J78lLIiyTXXyKXAcWPUmGD BdqXckhg8reJ0sRw1+PC9jb 5mxks89 tV03lEV+HLUhOMP5eNinGMq oSFGfiZ0jBHpuDcE7YMLbTk EifN22aKZqZCqfMe4fnQdba DvsYD8t BNJrxthgj513WsMnj7auSCI qsMEwZJkhWKY7L22gy0I4NV EtXRQiDGN1oNP4fT8rzMgse jogbGVm mObvgcGwaEnaGOgqYJdpQ18 6NRUppKlbRjPogDQnY6knhb XGIJ6zUbnzbJL+AOEpMLP4u WxlPSdw KRXmuZ8hCNQbE9l8JyKfEfV 1MWocI2XbhzR1QRUybXGsRC BllRRLcP4pualgg1cpgialP zAwMDAw GOn7EIk4VSIqxDofDyJxKJZ 8CeB5JUM4pSMbfC6pdJavlw gvlC6gOiv+RklOOjwvdGQ+P HRkIHN0 rMfsYZmoFIRjbG5zEWCrY0t 4IxNmBdR5NVsvD8WpjbC0QU DiwIPiQSUrrUPZzY3trdnoj 2xvcjog QuUtLJEgBYz6QXq0ZFCvuIa sTiGvBBT3MhB3NWN5cZPetD 0mzTtabhyflS5jTye+TVJOO jwvdGQ+ UMNhNTF6uLorGHatXGNimT0 vOCFxY6q5BpTeYnQ0KBsjL2 CqreV8HUVlcDGwXFSrjVGEt J2dscks t1ppydzkGzGkIPKzLWe2QVs 4IVUimCteVfMwBUG0RfO7AZ P6jZSvaQ5prAcqixvvgP0eM yc+UGF5 LFU5EN72SC06O2ArZkcvhRR ibGU+PHRhYmxlIHdpZHRoPS euUDKiJfGjzVlyMM9qNn6aZ GVyLWNv bGxh (more content not included)... Normal [facility] Consent for Procedure/Surger yon 05-06-2022 Consent for Procedure/Surgery [id number] D:127 Normal [facility] Ambulatory Visit Summaryon 0 05-05-2022 Ambulatory Visit Summary EVON CORCORAN Brent :1950 Visit Date:05/05/2022 Ambulatory Visit Instructions Your Diagnosis Change in bowel habits BRBPR (bright red blood per rectum) History of colon polyps Your Care Team Attending Physician - Linda Solorio CNP Primary Care Physician - Christopher WELLS DO, FAAFP Referring Physician - KAPLE DO FAAFP, Christopher A This Is Your Medications List polyethylene glycol 3350 with electrolytes (NuLYTELY Flannery oral powder for reconstitution) Contact prescribing physician if questions or concerns Misc Prescription (Glucometer) Misc Prescription (Lancets) Misc Prescription (Test strips) amlodipine (amLODIPine 5 mg Tab) aspirin atorvastatin (atorvastatin 40 mg Tab) atorvastatin (atorvastatin 40 mg Tab) chlorthalidone (chlorthalidone 25 mg Tab) cilostazol (Pletal 50 mg oral tablet) insulin degludec (Tresiba FlexTouch 100 units/mL subcutaneous solution) insulin lispro (Lyumjev KwikPen) losartan (losartan 50 mg Tab) metoprolol (Metoprolol succinate 50 mg ER Tablet) multivitamin (Multi Vitamins oral tablet) nitroglycerin (NitroStat 0.4 mg Tab) potassium chloride (potassium chloride 10 mEq Cap-ER) rivaroxaban (Xarelto 10 mg oral tablet) ubiquinone (Co Q-10) Procedures Performed Colonoscopy (04/15/2017), Cardiac Stents x 3, Cholecystectomy, Hysterectomy. Discharge Vitals Temperature (Temporal Artery) 36.2 ?C Heart Rate (Peripheral) 70 Blood Pressure 136/68 Height 65 in Height 165 cm Weight 209.44 lb Weight 95.2 kg BMI 34.97 What to do next You Need to Schedule the Following Appointments Follow Up with Linda Solorio CNP When: Within 1 to 2 weeks Comments: Following colonoscopy. Where: You Need to Complete the Following CBC w/ Auto Diff, Blood, Routine collect, 05/05/22, Order for future visit, Lab Collect, Change in bowel habits Normal [facility] Auto Diffon 05-05-2022 Basophils/100 WBC (Bld) 0.6 % Normal 0.0-2.0 [facility] Comment on above: Order Comment: Order Added by Discern Expert. Performed By: #### 2 [id number] #### [facility] [address] [place] [address] Basophils/Leukocyte s Auto (Bld) [Pure # fraction] 0.0 E9/L Normal 0.0-0.2 [facility] Comment on above: Order Comment: Order Added by Discern Expert. Performed By: #### 2 [id number] #### [facility] [address] [place] [address] 51889 Eosinophils/100 WBC (Bld) 1.6 % Normal 0.0-8.0 [facility] Comment on above: Order Comment: Order Added by Discern Expert. Performed By: #### 2 228797, 1616434, [id number], 4434706 #### [facility] [address] [place] [address] 08305 Eosinophils/Leukocy bev Auto (Bld) [Pure # fraction] 0.1 E9/L Normal 0.0-0.5 [facility] Comment on above: Order Comment: Order Added by Discern Expert. Performed By: #### 2 006763, 0297834, [id number], [id number] #### [facility] [address] [place] [address] 17337 Lymphocytes/100 WBC (Bld) 15.4 % Normal 14.0-50.0 [facility] Comment on above: Order Comment: Order Added by Discern Expert. Performed By: #### 2 150840, 9244541, 98726881, 8636649 #### [facility] [address] [place] [address] 01834 Lymphocytes/Leukocy bev Auto (Bld) [Pure # fraction] 1.3 E9/L Normal 1.0-4.0 [facility] Comment on above: Order Comment: Order Added by Discern Expert. Performed By: #### 2 936650, 6068522, [id number], 9370850 #### [facility] [address] [place] [address] 03338 Monocytes/100 WBC (Bld) 5.9 % Normal 4.0-14.0 [facility] Comment on above: Order Comment: Order Added by Discern Expert. Performed By: #### 2 498644, 5062551, 52819193, 5678986 #### [facility] [address] [place] [address] 44412 Monocytes/Leukocyte s Auto (Bld) [Pure # fraction] 0.5 E9/L Normal 0.2-1.0 [facility] Comment on above: Order Comment: Order Added by Discern Expert. Performed By: #### 2 994714, 7761191, 41110749, 5968131 #### [facility] [address] [place] [address] Neutrophils/100 WBC (Bld) 76.5 % High 36.0-75.0 [facility] Comment on above: Order Comment: Order Added by Discern Expert. Performed By: #### 2 037443, 7369327, 59323252, 9611031 #### [facility] [address] [place] [address] Neutrophils/Leukocy bev Auto (Bld) [Pure # fraction] 6.4 E9/L Normal 2.0-7.5 [facility] Comment on above: Order Comment: Order Added by Discern Expert. Performed By: #### 2 326586, 8331846, 08038804, 7999288 #### [facility] [address] [place] [address] 33610 CBC w/ Auto Diffon 3 Erythrocyte distribution width (RBC) [Ratio] 14.1 % Normal 10.9-14.2 [facility] Comment on above: Performed By: #### 2 938271, 3407430, 74652660, 6367633 #### [facility] [address] [place] [address] 09995 Hematocrit (Bld) [Volume fraction] 38.1 % Normal 34.0-46.0 [facility] Comment on above: Performed By: #### 2 080004, 6298150, 91454025, 0630584 #### [facility] [address] [place] [address] Hemoglobin (Bld) [Mass/Vol] 12.5 g/dL Normal 12.0-16.0 [facility] Comment on above: Performed By: #### 2 057212, 1389115, 32861159, 9670701 #### [facility] [address] [place] [address] MCH (RBC) [Entitic mass] 28.6 pg Normal 27.0-34.0 [facility] Comment on above: Performed By: #### 2 348765, 5084594, 52017045, 7015853 #### [facility] [address] [place] [address] 41549 MCHC (RBC) [Mass/Vol] 32.9 g/dL Normal 31.4-36.0 [facility] Comment on above: Performed By: #### 2 789691, 8078813, 10803272, 9660803 #### [facility] [address] [place] [address] 00674 MCV (RBC) [Entitic vol] 87.1 fL Normal 80.0-100.0 [facility] Comment on above: Performed By: #### 2 150771, 9835438, 92291027, 3395250 #### [facility] [address] [place] [address] 49386 Platelet mean volume (Bld) [Entitic vol] 11.0 fL High 6.4-10.8 [facility] Comment on above: Performed By: #### 2 644406, 6053386, 39038266, 0361893 #### [facility] [address] [place] [address] 87946 Platelets (Bld) [#/Vol] 202.0 E9/L Normal 150.0-500.0 [facility] Comment on above: Performed By: #### 2 063704, 4900168, 01742661, 5643056 #### [facility] [address] [place] [address] 70109 RBC (Bld) [#/Vol] 4.4 E12/L Normal 4.3-5.9 [facility] Comment on above: Performed By: #### 2 773792, 2352919, 12194589, 3548383 #### [facility] [address] [place] [address] 82545 WBC corrected for nucl RBC Auto (Bld) [#/Vol] 8.3 E9/L Normal 4.0-11.0 [facility] Comment on above: Performed By: #### 2 279683, 1330556, 72070070, 7550066 #### [facility] [address] [place] [address] CMPon 05-05-2022 Albumin [Mass/Vol] 3.6 g/dL Normal 3.3-5.0 [facility] Comment on above: Performed By: #### 2 485173, 9294506, 33710006, 7969023 #### [facility] [address] [place] [address] Albumin/Globulin (S) [Mass conc ratio] 1.0 Low 1.1-2.2 [facility] Comment on above: Performed By: #### 2 394500, 5637330, 10285418, 3168670 #### [facility] [address] [place] [address] ALP [Catalytic activity/Vol] 93 Int._Unit/L Normal 21-98 [facility] Comment on above: Performed By: #### 2 094924, 4593077, 03056699, 0344062 #### [facility] [address] [place] [address] ALT No additional P-5'-P [Catalytic activity/Vol] 27 Int._Unit/L Normal 6-46 [facility] Comment on above: Performed By: #### 2 916076, 6039714, 19614505, 7219495 #### [facility] [address] [place] [address] Anion gap [Moles/Vol] 15 mmol/L Normal 6-16 [facility] Comment on above: Performed By: #### 2 944521, 0285488, 47345132, 5875867 #### [facility] [address] [place] [address] AST [Catalytic activity/Vol] 29 Int._Unit/L Normal 5-43 [facility] Comment on above: Performed By: #### 2 550281, 4189416, 07454370, 0282413 #### [facility] [address] [place] [address] Bilirubin [Mass/Vol] 0.8 mg/dL Normal 0.0-1.1 [facility] Comment on above: Performed By: #### 2 541426, 7089694, 17316869, 6830130 #### [facility] [address] [place] [address] Calcium [Mass/Vol] 8.6 mg/dL Low 8.9-11.1 [facility] Comment on above: Performed By: #### 2 552647, 7673930, 55157384, 5569607 #### [facility] [address] [place] [address] Chloride [Moles/Vol] 100 mmol/L Low 101-111 [facility] Comment on above: Performed By: #### 2 561230, 1710888, 61772086, 2215106 #### [facility] [address] [place] [address] CO2 [Moles/Vol] 26 mmol/L Normal 21-31 [facility] Comment on above: Performed By: #### 2 969603, 5422193, 90555568, 9048674 #### [facility] [address] [place] [address] Creatinine [Mass/Vol] 1.2 mg/dL Normal 0.5-1.3 [facility] Comment on above: Performed By: #### 2 [id number], [id number] #### [facility] [address] [place] [address] Globulin (S) [Mass/Vol] 3.7 g/dL Normal 1.4-4.0 [facility] Comment on above: Performed By: #### 2 [id number] #### [facility] [address] [place] [address] Glucose [Mass/Vol] 303 mg/dL High 55-199 [facility] Comment on above: Result Comment: If t his glucose result represents a fasting glucose, interpretation should refer to the following reference range: 55-99 mg/dL Performed By: #### 2 [id number], [id number] #### [facility] [address] [place] [address] Potassium [Moles/Vol] 3.8 mmol/L Normal 3.5-5.3 [facility] Comment on above: Performed By: #### 2 [id number], [id number], [id number] #### [facility] [address] [place] [address] Protein [Mass/Vol] 7.3 g/dL Normal 6.0-7.8 [facility] Comment on above: Performed By: #### 2 514240, [id number], [id number], [id number] #### [facility] [address] [place] [address] Sodium [Moles/Vol] 137 mmol/L Normal 135-145 [facility] Comment on above: Performed By: #### 2 310928, 9265050, [id number], [id number] #### [facility] [address] [place] [address] Urea nitrogen [Mass/Vol] 28 mg/dL High 5-21 [facility] Comment on above: Performed By: #### 2 [id number], [id number], [id number], [id number] #### [facility] [address] [place] [address] Urea nitrogen/Creatinine [Mass ratio] 23 No Units High 10-20 [facility] Comment on above: Performed By: #### 2 412074, [id number], [id number], [id number] #### [facility] [address] [place] [address] Consent for Treatmenton 04-17 Consent for Treatment [id number] D:127 Normal [facility] Gastroenterology Office/Clin ic Noteon 05-05-2022 Gastroenterology Office/Clinic Note Chief Complaint Colonoscopy HPI Staff Patient is a 71 year old femalewho presents today for a colonoscopy. 5 year recall due. Last colon 04/15/[address] Tapia. Personal hx of colon polyps. History of Present Illness Patient is a 71-year old female who presents for referral from his PCP?Dr. Wells for colonoscopy. Patient had previous colonoscopy 03/[address] Tapia that revealed tubular adenoma removed from transverse colon, diverticulosis, hemorrhoids. PMH of DM, type 2, HLD, HTN- managed by patient's PCP. Family history of colon cancer: Denies. Family history of colon polyps: Denies. Personal history of colon cancer: Denies. Personal history of colon polyps: Yes, see above. Takes Xarelto daily- follows with Dr. Guidry, Cardiology. Has hx. DVT and claudication. Patient had previous atherectomy and angioplasty of left leg with Dr. Barney, Vascular at [facility] 04/07/22. During today's visit, patient reports over the last year she is having change in bowel habits with watery diarrhea. Is having watery diarrhea occurring 2 times a week. Is currently having 1 BM daily. Hx. cholecystectomy about 10 years ago per patient. Is having BRBPR on toilet paper with wiping off/on over the last 3-4 months. Denies mucus in stool. Denies recent changes in medications or diet. Denies black stools, fevers/chills, nausea/vomiting, unintentional weight loss, and denies having any other GI complaints. Review of Systems PHQ Score Initial Depression Screen Score: 0 ROS - Provider Constitutional: no fever, no chills. Skin: no Jaundice. ENMT: Denies dysphagia and heartburn. Respiratory: no shortness of breath. Cardiovascular: no chest pain. Gastrointestinal: no nausea, no vomiting, yes watery diarrhea. See HPI for further details regarding. Physical Exam Vitals & Measurements T: 36.2 ?C(Temporal Artery) HR: 70(Peripheral) BP: 136/68 HT: 65 in HT: 165 cm WT: 95.2 kg WT: 209.44 lb BMI: 34.97 General: Well developed, well nourished, in no acute distress Head: Normocephalic/atraumati c Lungs: Normal respiratory effort and clear to auscultation Cardio: Regular rate and rhythm, normal S1 and S2, no murmur, no rub Abdomen: Soft, non-distended, non-tender. Normoactive bowel sounds present in all 4 abdominal quadrants, bilaterally. Mental Status: Alert and oriented x3. Normal mood and affect Assessment/Plan 1. Change in bowel habits (R19.4: Change in bowel habit) Over the last year she is having change in bowel habits with watery diarrhea. Is having watery diarrhea occurring 2 times a week. Ordered stool testing to evaluate for infectious process. Ordered CBC/CMP. Ordered Colonoscopy. Takes Xarelto daily- follows with Dr. Guidry. Has hx. DVT and claudication. I will request hold time recommendations from prescribing provider of Xarelto prior to colonoscopy. Ordered: CBC w/ Auto Diff Clostridium Difficile PCR Colonoscopy (Hospital Procedure) Comprehensive Metabolic Panel Enteric Panel by PCR Fecal WBC Lactoferrin Giardia lamblia, Direct Detection EIA O & P Exam, Routine 2. BRBPR (bright red blood per rectum) (K62.5: Hemorrhage of anus and rectum) Is having BRBPR on toilet paper with wiping off/on over the last 3-4 months. Ordered CBC/CMP. Ordered Colonoscopy. Takes Xarelto daily- follows with Dr. Guidry. Has hx. DVT and claudication. I will request hold time recommendations from prescribing provider of Xarelto prior to colonoscopy. Ordered: CBC w/ Auto Diff Colonoscopy (Hospital Procedure) 3. History of colon polyps (Z86.010: Personal history of colonic polyps) Previous colonoscopy 03/2017 revealed tubular adenoma removed from transverse colon- see HPI for further details regarding. Ordered Colonoscopy. Takes Xarelto daily- follows with Dr. Guidry. Has hx. DVT and claudication. I will request hold time recommendations from prescribing provider of Xarelto prior to colonoscopy. Ordered: Colonoscopy (Hospital Procedure) Orders: polyethylene glycol 3350 with electrolytes, See Instructions, 1 EA, Refill(s) 0, Prior to colonoscopy., [id number], 165, cm, 05/05/22 13:40:00 EST, Height/Length Dosing, 95.2, kg, 05/05/22 13:40:00 EST, Weight Dosing Follow-up With When Contact Information Linda Solorio CNP Within 1 to 2 weeks Additional Instructions: Following colonoscopy. 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 Normal [facility] Comment on above: Result Comment: Elec tronically Signed By: Linda Solorio CNP\.br\Date and Time Signed: 05/05/22 13:58 EST Patient Educationon 05-05-19 Patient Education Radiology Colonoscopy, Adult A colonoscopy is an exam to look at the entire large intestine. During the exam, a lubricated, flexible tube that has a camera on the end of it is inserted into the anus and then passed into the rectum, colon, and other parts of the large intestine. You may have a colonoscopy as a part of normal colorectal screening or if you have certain symptoms, such as: ? Lack of red blood cells (anemia). ? Diarrhea that does not go away. ? Abdominal pain. ? Blood in your stool (feces). A colonoscopy can help screen for and diagnose medical problems, including: ? Tumors. ? Polyps. ? Inflammation. ? Areas of bleeding. Tell a health care provider about: ? Any allergies you have. ? All medicines you are taking, including vitamins, herbs, eye drops, creams, and tqjo-dgy-qbxcoxn medicines. ? Any problems you or family members have had with anesthetic medicines. ? Any blood disorders you have. ? Any surgeries you have had. ? Any medical conditions you have. ? Any problems you have had passing stool. What are the risks? Generally, this is a safe procedure. However, problems may occur, including: ? Bleeding. ? A tear in the intestine. ? A reaction to medicines given during the exam. ? Infection (rare). What happens before the procedure? Eating and drinking restrictions Follow instructions from your health care provider about eating and drinking, which may include: ? A few days before the procedure ? follow a low-fiber diet. Avoid nuts, seeds, dried fruit, raw fruits, and vegetables. ? 1?3 days before the procedure ? follow a clear liquid diet. Drink only clear liquids, such as clear broth or bouillon, black coffee or tea, clear juice, clear soft drinks or sports drinks, gelatin dessert, and popsicles. Avoid any liquids that contain red or purple dye. ? On the day of the procedure ? do not eat or drink anything starting 2 hours before the procedure, or within the time period that your health care provider recommends. Up to 2 hours before the procedure, you may continue to drink clear liquids, such as water or clear fruit juice. Bowel prep If you were prescribed an oral bowel prep to clean out your colon: ? Take it as told by your health care provider. Starting the day before your procedure, you will need to drink a large amount of medicated liquid. The liquid will cause you to have multiple loose stools until your stool is almost clear or light green. ? If your skin or anus gets irritated from diarrhea, you may use these to relieve the irritation: ? Medicated wipes, such as adult wet wipes with aloe and vitamin E. ? A skin-soothing product like petroleum jelly. ? If you vomit while drinking the bowel prep, take a break for up to 60 minutes and then begin the bowel prep again. If vomiting continues and you cannot take the bowel prep without vomiting, call your health care provider. ? To clean out your colon, you may also be given: ? Laxative medicines. ? Instructions about how to use an enema. General instructions ? Ask your health care provider about: ? Changing or stopping your regular medicines or supplements. This is especially important if you are taking iron supplements, diabetes medicines, or blood thinners. ? Taking medicines such as aspirin and ibuprofen. These medicines can thin your blood. Do not take these medicines before the procedure if your health care provider tells you not to. ? Plan to have someone take you home from the hospital or clinic. What happens during the procedure? ? An IV may be inserted into one of your veins. ? You will be given medicine to help you relax (sedative). ? To reduce your risk of infection: ? Your health care team will wash or sanitize their hands. ? Your anal area will be washed with soap. ? You will be asked to lie on your side with your knees bent. ? Your health care provider will lubricate a long, thin, flexible tube. The tube will have a camera and a light on the end. ? The tube will be inserted into your anus. ? The tube will be gently eased through your rectum and colon. ? Air will be delivered into your colon to keep it open. You may feel some pressure or cramping. ? The camera will be used to take images during the procedure. ? A small tissue sample may be removed to be examined under a microscope (biopsy). ? If small polyps are found, your health care provider may remove them and have them checked for cancer cells. ? When the exam is done, the tube will be removed. The procedure may vary among health care providers and hospitals. What happens after the procedure? ? Your blood pressure, heart rate, breathing rate, and blood oxygen level will be monitored until the medicines you were given have worn off. ? Do not drive for 24 hours after the exam. ? You may have a small amount of blood in your stool. ? You may pass gas and have mild abdominal cramping or bloating due to the air t (more content not included)... Normal [facility] eGFRon 05-05-2022 GFR/1.73 sq M.predicted among blacks MDRD (S/P/Bld) [Vol rate/Area] 54 mL/min/1.73 m2 Low >=59 [facility] Comment on above: Order Comment: Order added by Discern Expert. Result Comment: eGFR is race adjusted. AA=. Performed By: #### 2 [id number], [id number], [id number], [id number] ####[facility] [address] [place] [address] GFR/1.73 sq M.predicted among non-blacks MDRD (S/P/Bld) [Vol rate/Area] 44 mL/min/1.73 m2 Low >=59 [facility] Comment on above: Order Comment: Order added by Discern Expert. Result Comment: Geodetic Engineer jin kidney disease could be indicated at eGFR's of less than 60 mL/min/1.73m2. Kidney failure is indicated at less than 15 mL/min/1.73m2. Performed By: #### 2 [id number], [id number], [id number], [id number] ####[facility] [address] [place] [address] PAD Rehabon 04-15-2022 P[facility] Rehab Please click on link to see report pdfCD:[id number] HTDxHrd9TSHpYxLK3jyqu4I XonHIFnNOCcTQZuZWTQIy3G F4egyzvyFHWdSoDoADHc BBZtAJitukYmb5GpvFX0DVe sAd3AonZdvP5yDVcQH008dZ LlfpBlQ49tzC9hKWWgh41yM p3EpbFw eLommpKdoMBeHMM9WqStGsE xMzExNDUyNDEtMDUnMDAnKQ o+XvtloeEzGshLKXOmOH6sa mh4EHgv DJtsBHCySl5vcPDci1GniCT 3l4LTI1EhhgGMXJ4jUH4Drt zoeN9TKj0UaZQewoHxRxxwK y4gnAHZ y1ooXk36LxJyBXImCYNiDQD lOEJyLDLlRb9AuMNgaI0pP6 yybLahDxd1Kf5PxVFtPZX0H MasT8Sx cZNvXrsFH3h4PWoeB3BqC1i lQXENC5AouVfzgLnllRM5JM FJM5tMRDceaJLbSLN4Mb5Zx 2NlbnQg YXI7Sg7WTVJkEA95KP5fWPB SM3wjSYGcqdamSGBlAt0KGN rPzIB0zJHaPHDvJu3UjysEf ZK8nAY6 NFOTVr3BRD0fs7AwZbLdLYB qFgaNCRbSA3S1cYHzD0Qvwn XOM1V6QeI5wGOaN5QhqMJRd YFmHj1W AOCwHb8twUPfZUHrFXnIOPw kEoogf8OXbRMnMPHpJq6LLG L5F0nmayJvMaOCD2IlQ18sy D1hTL3O hJ1NxiUxCW2dp7OwpqaCU4Y imaKQZPKvxvasqZ0zVFOpHA PIOh7KsPT9lMAnWeRlVjqwK CAwIDAg MCAwIDAgMCAzMzMgMzMzIDA sYREqZimoBqZcTmB8DLQoNm tgTHR6PYJ3XpJ2XTHxIFW5Q AR2PbW2 VLJpHWO7OXGjMYV3KLL2VlS yNzggMCAwIDAKMCAwIDAgNj V1KYJ3CdA1EvJqZkCsPWZ7P mL1RLZg URX3OnYxDmb2LHWvHmJ0YIH 9DfQ8WwSDFfRpMCc2VKM8Pm ojURW6UmFaQsX8YPTvPHV1I jIgMCA5 FHUkNED0DgsbOYEvCKAoBWr dIHFqOFL3LRDdLDK1MTCcGW Z8LPAfIYT5NCC5RSK9FXPoD KM4NPYs VjCvWnBkDTZzQSFhVzY7KbO RCTA8ZQL6DaF9PCCjIUN3JR ImVgT6XITbDnd5EHS0OqV5D DAgNzIy AXAuROG8QZRqTm6HAN8xm3B zNquyNZJiOmdPJPnBA5O3yW KmF7OchaBPHXQrehfvgL1aS c9Pr821 ToUdUYEhBKWtGWetXn3jNMu 9XFycM52DPd6HtMJkuiTsLr zbUr7ozGFMf3wcGk13CbYmQ HZ2PxYi VtnvVXRcSPrcNm0TzTUsfX0 gT9reyXxdXtq4Ri8ExVQwBQ Z7PZrvP8PtcHKjTbnHY7q1J QqeL3Sl B9rmET9pTwdfH0TtXTSvL1g 9OIvmCycvQOqvsTwbmYO2ET xTB9ExX6GmrZO0RZNUD8Cuq 2NlbnQg LTIxMgovTGVhZGluZyAxNTA FF07gzHrjKGXuZFWhLcJFS1 V6P3yfXFEeGWX4DPj+Pgplb mRvYmoK ZBBrBU3oupw6GAbcOHwzGBB fZo6uzJdaB2RhmWchCCIhNP O6FCH6qAJAC9Edj7BGy755Q B9Ufxud oQ6Zs1qzIDIkkFecVZKDG2U bmjQ6L7lhleKuPysxEBGwcS ZzYENgLWD8Fl1AsdChNHyzF oGxF3ne ME7ofCCtD54fpY4bMf3Lb58 9TONfQ1LcyTBpkhP3WLQqXk kfK4wemPgjDNqvSuc5CRQlX CAwIDAg MCAwIDAgMCAwIDAgMCAwIDA KMCAwIDAgMCAwIDAgMCAwID AgMCAwIDAgMCAwIDAgMAowI DAgMCA3 MjIgMCAwIDcyMiAwIDAgMCA wIDAgMCAwIDAgMAowIDAgNj N1OYTiZLWzWCIbCUYwDXFtH CAwIDAg MCAwIDAKMCAwIDAgMCAwIDA cQDG4MBUaHIZdFJFcRIHzJQ XiYOG6QUiZGmYmVAImHJUeG DAgNTU2 IDMzM10+PgplbmRvYmoKOSA uZQ1liwh4JEjrKTnwXHVyGm 2yxKCgj2BziCB6t3IZZ1Pbn yTAAC2m XK1XkddmkY2In1npFPTUU2I vXSawIAJqOr7Hs769SaRytE JsHIFnUMEjRol0ZQVwOVNhL WU7Lu5F B87eb9OcqcwLmJL3uLCvWab IL8B7UG2UAWq1Rk5DtCWqGb V8SIwxDMLlbRswRL2ckNKvY TkeF9Qq YVZzJ6c6CGmdHdnhGVvhpKy hyRO8YToPV0GnE9DviWK6CH WGT3Weg4WsraCdESJlRocrZ GVhZGlu AqVuAEYVZ68hlYouVEYoFKD xQRXGW3O2A9suKDDeDKK5BU o+PgplbmRvYmoKMTAgMCBvY moKPDwK Z9M9sGKnC9PfseXBW7L6BmM 0oPGdU6BsjERHiBQwIn5KMA KnPm5vpYYlJVLqLTmtDm8fU N6IMi8J vBXgcPPoGNKbDwNIU6ala7B QsJKxEAFbGMrwTM3ww9Rsmc hpZ2hnmbVsh8vAfaLtFCsdD gybCl7v vCJyh2HmrHY1z2XdMJNqFUK MS9dtWZGppvExSZQ6RUSrZE VyYLZ9INJiKWPbRHQwUqRwY DMzMyAw RYRmSjo3RUCXSvk3FTG2MES eXOX1EqY0BMHjEPZ5ZAE6Qk Y4YNQgBAKaQUNxVKLsUuZnX CAwIDAK ATF5HNDxUNT0ItZaWmQxPSd fGuK8EqVkGxF0KYUeILL3Ys zeMcJbHOH1HMD8KIWfFSV4S TEgODMz HareEyO3PjpgYmB2MAu5TBK 3YdAkErM9SAScBJIhSIRwTL N7ZGVoENCqDVRaRPNfGgXnG CAwIDU1 JgI5RLUaCGI2GUAkGOZ7XPS jGtPhLVHkBJE0IAYjWah6OU TuRSP8ZFC5GJH4JYeOBvEdS DYxMSA2 NOHrFKUwFQnkVJI0HKAmYrP 7UXBnGAN2TPi5PFZ7MWDaEW U2XT4+QkWgJJ5wurzjPGCeO Q2pryi2 YKbyKJEtU9IqSML8ENQ9Lw3 RMH9jwXxgBxu4QfiiNjnrmE VyIFsvRmxhdGVEZWNvZGVdC j4+CnN0 axProSr99aUTrQDB7XI/976 P+2cJhN93kNL2coXO3FFKOl GOCKJmd8oRvJzrnuskqn4RI iQCUhDK pIHZe3QPSmh7PoYYEOe+Jag LVZrVvZa1mMR9s2WeW4UqMJ UFTGGNO8No386kHVgI/+hM7 Tv57e/e m28708oo36iQEKWDV1SHJPn d9mX8LxeVN3EfYZToqZoiQh vevDLDBLAVAchLHmhav/Q3v 2w7OSDh NrZT9UzSO322g3AtYP+J90x oEZX0dz4IFGFhthn8zxfhtd etKggQh/gM3QdAuLPNsnZMH Ihdg/ef ZFUkguh5P2S4igl602nLjc1 BsgCK45q2U3UKiG0y37OmNs lBOW4ro1Jp+3rEaQn6AXE68 4U4+gnU 1kiQqUuPT0HOBwQm+EAewsR ECWxv7AAdnWK8kuXOU41zq3 JQViC4EBLD1jb6UrWkwVR6I SOE6AFj Cu8LbxAnN0z9EC5NM3mLOLd Loptv8Rkq6tv5XwDIXDSo4G iV1MJrA8srp9JpXvwUi5U9C yk7aATF OpKAsm6ZKF8uEXxel+BD+Ct UWTWsXM7sRvfykRFaCykUec Qw44dkRX7xFZHkCELbn9lWm USnYtSV fRteqTR4MGSwZtFHyHszBRH OKTHrADGtjVcec6EtndoMKa 9CFlOxRue0vTfvsANqG8G8E /pRrtBs ZhF7uzX3EKKk3XdLewLHTn6 6n+3RVIytgAppoEMGTMGqfL hGNeZcDw/Pd8DvIYyXevkv1 INO2A+H ZTQd0Da0GLzGK+AadicWhde VTwrJApQgyiqyiWzFfrTeJD uBQ5OdyHU10qdq42JyDbsDA i+y3EKf psfp2/Qd+jG9SD+mR2lo0gF tKv49HvqxAKQacj9Qe+ROeb /2zagDCxSH5cS9xlzrm2tyx RDrJ033 hnuXAqjptQJuNW8WLEhVIEP p8bHjV5PApW6cs0Biq4pY+u AzXgfKwGAlXAqJl/jJfJQgW UhCZAVZ TdYNV/MngA9xScdghvyQVxB nyR/AF3fsvodgKb3b7aQ0cv hcuoAup0/Sp+wt9TW4yf78U D1QEkOr I9LxXTCQPX6jKrVna+RHmSc oovDOL0Mp8dH2WlpWdHcH14 EH1wxjeVk0MxxxmHd1iieMz qFMVaaj NCoPKZuUVmUvnuh+pV+Ntro ZdgwrR6Aq3o67J/7Arm1IVU VpopKBOZTmFMPrx82hy+xT7 qitxy4L yZM6A87GKEqdmyk6QZeaz0Z 71BxII+jmTOxaeuEIlr40Jz 7elYtrM2+OzSXjcad+D9ckG 4WLL8EF hLcqcMdnam8ZZ0V1aLj4FTq wcqNhB1eSGpQwOevsESojPQ /n64FNyf6X8FwS3OXvn5VXJ pJZSis5 ARojE91WFVCkhJV6T2saQgh PIAbcugI6eBZZjlCP0AX1ao lLZqIBgUswaYhUBfHa6jTK4 HP8aWKP sunTM6CjlJhViPOILZp2ZMg 4zQZa51ozdOEddRgrYEXEJi 8q2RSrX8CxSJNyhD9X5xymA 1QmaLag EkEeQcWCigQVClIFyYIkQcR zD/EVbHSI5qW+g0dJ6HnpOg OTdQ6XIiEjtNiCdOy1tZ5JK oMWUX8t aPBaRJX4N0QPQu6FYdscDMJ 2XRiArHD4l0IDNHzIIyeLSq 8H+UPE+4g+jIgPh1rnyKeLe xHdiJcQ lKtpKkKc0sukD04Qdnb9EtT BI61e91F0Mup1H0bszitzZP tS1t7A (more content not included)... Normal [facility] Please click on link to see report pdfCD:[id number] INQkVsr2BBMyLiWF2jtdx0U HdgLGOkZWVqFVCsLCWZKb9P C5yyejaaLWGjKaSpEXXw JEPpDTppusXri7EyaKB5NCn zVo3KhgTyrI4mNHwLH908fV KjqiMdW83gtQ5kDGGpv80uQ n0IjyVk qLiedlIbuSDsTED3XgNqXbT xMzExNDUxMzQtMDUnMDAnKQ o+VcvwcsMrCzuNIHPdYM7th hc3CWbb XWgbYLGkYd7rrEMih5GjmPS 9i3QJI8JvnfSJOY8rSV9Ffr cvyD5Xr7avMKRvwEfpCZXTH 0ZsYWdz CIAvWs1So730CmBaqGKnGAS 8SKGvSrp2TCWtRCPvKGMxMF 4QC62pj4SrxlsMeOA9cGPuU dvED3C5 JZ2CBHj3Ox8DmRDnReE9UJw lUFFplQueFZ0hiIWhGVSsLh 0XWDSQIOumoPYkChS9Yq0AG TIuF6l5 JHBsTBghIMJkUL38CBdlRXa lVEUaK8LwpTBuQuAjKs3IBV GzsE6oXJL7XQmoHRW1Z8ole GggMTMz MaydEPBxJ1aeqEfeFNp2Gj2 +UuHqMX0hwsy8DRTge8PyVq x5Dp9QiIOvEN7Vq036Pj5Vs VI9vJQo JS3JaeJdDHrdEWaaSiVvECA yedSaT4FtqXBqCRRauBIWwC UujUYZFHluOoeeg6OZdFImT HYhHt8D YCA1Z5njabLtPgBBW2UtN14 yaX2cLN3RvW8VdqIfCG9mm3 MlfswRU4ZaoiYLWHQtthebf S6zBABs MLIFUg9RpAM1vQYiHbMjIvu gMCAwIDAgMCAwIDAgMCAwID AgMCAwIDAgMAowIDAgMCAwI DAgMCAw IDAgMCAwIDAgMCAwIDAgMCA wCjAgMCAwIDcyMiAwIDcyMi A1VrWgBUA7DRZuJZU1KlJrB rs0ZRUz IAGeTGdlRkz7WfPhNzf4UBS 2HtOyDGvyYnF9QizqIUNbMJ AgMCAwIDAgMCAwIDAgMAowI DAgMCA1 ZFBsBwQuYGG5JoP6ZNCdONE 5LVTmPcL1GUThSnXwYDP4LG HrEET4VqQvCsgmUMy3YgPkF ZD5XGCh NiDeVZBbIdi9LXY3MpZbAqM rMaBmCGZ7JjEjUVDbPNL9CF 4+ZiLoGB4qzcp6RNPem5GrK pw8Wz5O pXDfUL5Hf821VYSoE6FdbZY xlxzxKo0asQ6vaJHfX3TupB OjOQCbjGAWEGcrDwfeL1OkF tFIP3Bl pbSCLo34LWlcLlZ0AY7fVeG eYvCiQCPrRRU3OZkhRFqfj4 dnI1toGMQtBPO7WVnuQ3Uep UggNzgK G0P6CD6OFHz9Wc4WqUCwoLT HhpqeQWHcMn5EMXPEZAlmgG QaMoK3On4KSRFpQ7c1NQUdO QovQXNj QF11LPjtQRekNBDbA7YrsXV aPkRpPv8NNEShmZ2kGMQ9DF lrUSC2S2bpbAwxBwLaKGhlL PNvE3in tZdwTKg8Qt6+KyXmKI6bvlz 4WUOyk5GfLfe4Yb9ZmDPwYP 0Mq470Lf2UgHN6zQUlAF5Cy nVlVHlw FLttXxGlHGEgjdKsV7PntHS bGMVuuEZVJMhkTucoa2LGtM NvYCLpLu3DOPD2U3rheoJiA tPTW5Db T13icL1mTF0CcX3IczGvYD5 jq0YtuxeYR6DscfRZLUSwpc lhjI2wTOgkRARFLg5FhQQ3s HMgWyAy LtgfNGUdYHY4UeDuBJr3HEM zXOCiBzBuJMWtNxTrKYX5QU OnTrhbSwJpUgB2HRGkDbszX OI4WSJ1 EpL1VNZoVYW5GQF4GuZ6TLU fHFN1GJPoYDNtNFOuUlUaXI VoYHt4FxL5TXG0UDJtTFK1W jIgNzIy LXosJeP9ZbYoUuW7NHNnVTA 0OzrpAvRqCCL8LAR3DWFsZp SfBLUaAFY9JyTHLiNzJEp4G CJ1Gtof RRS8KjCqQwF9TDSvGWP0AgK nRsC4LEh0QAEwGHW5PvIoUQ XgKAHjDgZfGRNuFVH8BfJ5L TEgNTU2 WIPgEIX7HAUkPsApWWBvXAW 2YGQmKts5RQR5OYE8MURgId t2QBa0ZZq6LKGgYaArBYRvB UJ2YFWm Ukw8MQQ3DpJxUkXlPlDrDEU 0ZdV3QfffXZJ4YLB2GgY1QA CnTz7KLN2oo5JyHsnbEKDhP moKPDwK F6R3xPSoP8CqtaHUDLNdmxm ohB1uWa2Wq303EdGkPZZhCQ KgIZyKOKlmXvuqN2QiZnTRT 0ZvbnRC Wc98XDgsJqX6TO7tRzIqCxV cVJIwQHSoHPrsJHcpu7kkN8 sbHKMeDHR8LYchN8RuqDkyI mlCG2Z3 IX8YGIn3Aa0IdXLdoMWXsix nATPqNe8JBBDRUEregUGvLd O4Bg3NXWRyJ4k0YVXvJXuwH XNjZW50 ATvgSUcrWQClJ5VwdUGzGdX lVd1GRXSieJ1lCZD0PMcrCS X4U5vlgPztSgSnRSyhYOVsS 2lkdGgg NDQxCj4+YbNmDU2xnyqbUVR sSN8rlsz0XRonUYzuUSGmRn 9jvDhaA2OyzZpxIWCwZJL0B ZG3eFHD F3Pij0IEn192EI6UgqxlxO6 FNs2UmJCnaVGcXLAsBbKPH7 akd6WLdBGtNWQkFSnfKS9jl 2Rpbmcg U5aisjLad3fPzkAxVUxrHif qYq0tbRWjg8WolIJ1r6UyTT TmKXPFI1udUQRqywReCPW5S CAwIDAg MCAwIDAgMCAwIDMzMyAzMzM kUBT9LGXjVFYmPbVsTcg3GU Z5JcA8QFYeAHX4LZJ8ZlK4D TYgNTU2 TIR5WmY9IOGsXEQ0DDU7AfV eWXUaMQLbFvEtJCYmXKQ2Pb J9QdujGWP1YoInZvE8XBBhF TY4Vxgc DsNqPWS1NQYzIWWsTFL2YHk rAeo2MvAjHlu8SRL3GkZkAU ifNsH7QcgmPuEjKQRnXPN3G DQgMCA2 NjcgMCAwIDAgMAowIDAgMCA 9XANdZWC5IGZhBWB6LZLcFU W8CAW3OTV6AFBcGCM9DOZnJ iAwIDUw ZBHmKtHiBVSiQeN3FoB2OEO eHLN5SRTwRiPuTETtJHRyAy biWYA8HUHvTZJ3ZqVkQMRaR DUwMF0+ PgplbmRvYmoKMTEgMCBvYmo HORiDJ6mfdfi0cRCxMOErXn vkRKQjN9ZmRES2JjLJA8Dwd HRlciBb H2QaOUVcJODao3GwTKf+Pgp kiVLeRK5NmZzJHQ5hBTPBY/ e+j/d6d9OAh6zFyggvOjcPH AIkgRiW XGtCJ77YM7RASBspVPHmNkI QyoQCgpvQxhJstQIBRQGJvi FzBHYiZrEJvwG4jTYWCp8qQ CxxximU EnuRf03KAeIvYi/oTO07+e3 v3nPOO/ecc+/nzaCICEd4qE R63do1+ks5hw+g8hnRSp8v0 uOf9qxl znLmYPXLJf9oKe/0N7/YuBg r4scZ6jJXMCL/ec+F6Tg/if aPp2LJmJL0CxZaLh6XQo5Hf 64nrSoI PQe030RweZP5BT6GJLIGIPB 3m22Ho67DsxbRarQ04BsaZ8 8dg8huIjVTPA/V0HzPW+OWY O3UQQLx 61a0yjv4vsjamWXDO7RHWRw V8SHg11t6hEJZOL68O/hAHs HZYFZ0fmZUXcef6RguXR+98 MfrQV4s NEVQi/Zh0L7JEZu7VdHyrjv gbRZ/W5Iu6L9mMx0YL5yAjI j5gbgLay7LP+s6aY3bSeumu 9BnA+xC Wy+d68zs2N8vgbjiJRmu+YT 38ofCNb0+vppP0m3D14/gQ/ ihLDNBOIeMjl657WwiLqIvV C3eHQbo MPioUu9qEWePWdrII1iKx6J KoXER1tHyPQ0X2BDrK34F81 pIDjRZ2KNUYFH81vyrWg7nM x3MEzBo i3YLJQiGPguJoEYvHGT0No0 MlOtJo65cmvFQp+VLynLlAE qfOp/x3WCLpRKMtvBCElvAb st6OmHn TH4WjiYUaDINmG84FszDCqc PhyECJ+BhnI53GgcgQpQnFw DUlX5AhSKUWVsxoancyU464 rR0kVYq m5zA/F2n62X3uPsTY9Lzkym An9yC8jp2DoqroIi/o19IIN pxMZGfhUb8FU0P0uZfvttmW nm//JH8 kUIU0+rBgUpl5ch9niCfN2u JboFq8D48qh4rdNEaLJtSEW sDhgChCTxcR4YgTIpfKUxNZ SpjG01G shIgVSlPvZn1jYvCBJfQQoP JLZ4JGCp4AQlrLFKYpXg8FQ 6i32aalV/J97SlanuTuw2t+ qroXLqA QoyI3igkF/HNRKPy7VZ2qZ2 Kavitha/Mo6wnxOGzGMowMO/kR5 rdPKXBQBpqZyo4aV9th73Hg u+Si+X5 8n1Y+0o5mejHe9XtzdJgIES qayVvObqczFAvZ34qwpXxrg v5Wn8ruKII5wk+tAi9WS6Ny szdC4Pe bN4cd0gBZ8iLgZtsF+2obZZ kuE1PNVjHmEU39dir5jG10C /Q+8DoOYNu3PS4BEGjn17aC RrNmmzL eMxQmn3k20Plgc/XJBtUymd hgbQImpRaKYpdhkNktbyZvC w99t16BIxHWkicjO41gCZtE 0Q/6dPS EbaehdinmOkVaZfSyCaSWUo nHUUd5sV8fiBL07tUlY3MCn IudJz9UOgJwjOFg6qCqQNqz vsao6ur xLAU8bU3pxNrQ+6gU+mTtsF TXHFtZI8e3HaagWpTXhE4/V wsaKrsQiC21KYyWmiKVaeuX nY2UYxt kZUOUnH6lGO9cwTKGcoCHut 2oBJBHkHFgooEFQpSBcmCJE HEcw/sJ6ujjG8gcnf6B/Eq4 bXEc8xz aBAFAzEXsN4LmQg1yUzLOeD eIhlP39GOjnvYSZWTYfcw8O lBewV5 (more content not included)... [facility] Please click on link to see report pdfCD:[id number] WYWzZlh4QKDbRlDX9ybcb8W XjwDIYhJYOzYIIvMAWZRn1Y K4mbsegeDZQrOvVmTYAv OEGzCPagqkXpk5ZixHQ1JGb jDm6GvbDmjU3wTMoRK782hE RwipKlH70deK1fDEPxl89hJ c3AtuJk oRscmzPuxNOsSYY5QiPnHhX jNePiVPX4GXEdJSSgVUDqPQ o+StbmvtRlAxkHSOHrUS0sb gr2MTrv BFmiLVBrKt8kiFQlm8RgoPZ 4p7QPC6XkjfJXCR7zTO8Mbq qhjS4Ty9qbBXNceZfuLXBOI 0ZsYWdz EJUgCq2By210AjJlvTVzJOB 8MLYxOdv8LNZyPPUrEXNhGC 4FC76dm4SagtgChJV1lCPbP syOR8C5 BO4ZTQw8Wy4BrWXpJcG4LUy fJQFrfTzyYH3ynSHmLUDgCt 0LOAAFSLdnbYUtTpN6On4SM WGrQ9n2 SEUsMAhbNSLzFC49XWedMJs pEMUrB2VgiAFnXmBtMb4VFH EmdJ8zXCP9HMhrSQR3X9uhw GggMTMz VcpiTBBeI2lplKznYGc1Ic6 +CjVgQL3zupa6LOGdk2PgHt o1Jf1CfSHjGC9Hj683Ya2Lf FQ6jEFl NB1CafPdUHypIJyxRpFlQHI bhhMoE7KrwHTmPMJovWNOqH WfyAQPUEnfCdlff7FPlTWxY RPfGe1W FEO8D4pcoxUrUgDFF6VxV90 msE7kYD7OsI9XtvOnQZ2tv1 PuxhrPU1LaceKXXDZpvszwx U2tPFDq ZDRBHt3CrTO6nNKjNaBbOlo gMCAwIDAgMCAwIDAgMCAwID AgMCAwIDAgMzMzCjAgMCAwI DAgMCAw IDAgMCAwIDAgMCAwIDAgMCA wIDAKMCAwIDAgMCAwIDAgMC AwIDAgMCAwIDAgMCAwIDYxM SAwCjcy AiAhEIJ2MaM3PyohDCJvIDW gMCAwIDAgMCAwIDAgMCAwID URLTQvLUJrIYR4EXXoFOK3U DAgNTU2 IDMzMyAwIDYxMSAyNzggMCA qCLK2MNZfQnCsYCZ0HPEnPS VoBJV0CPU4LIZrBeOnJWZrH SAwIDAg GYP9QFGsUu2JXP6ul2PkWnn oAWPmBprOWEnZH6R5zBZiG7 NbeqKSQFKwvyjgtR4xXy6Mm 250TmFt DAGsOHLgAShHSEgnDebjY9A rXaTNJ5IeohGGHx00JPkuVp L1NK8tIzZgTvUzISLxDXWdB QovTWlz z7fvX2soNLLhVYA5WUnaQ4W gwGxsMaeKZ1M0BG1CPRy7Gi 8CjFLotZQHbyljZMYfSl5KR XBIZWln rEEnAyF1Ir9HEZPtU6e6RNE lWMdhFZBvIX42NPreXUzeHK TfP2NpcJAqJxFySk7NRVQdp S3hBYM0 BBrgCPM3N6ldbNvpFgNkVKb lWEPbF8ikhOcdZQOzQs1+Cm WeET8mjgs0ZOSzx2VmDqz3K r2KpACd ME9Wp283Lt9GfWC3qFNcMT5 UcnVlVHlwZQovQmFzZUZvbn AxR3HqiZYqLHODQ8DrmfS2U 2hhciAz MgovTGFzdENoYXIgMTIxCi9 WweWbQRmyCtLpE6yrFH7fzQ MbJ58aeD2tBr5Cy285LVMhS 3JpcHRv iwX0CZRlPuqfQ7rvgUtcSCo jByo3EJEfVUUkMLThISZkIG Q4FGOuDJKlCBXeVDRhWiLoH eB1AKEk TkkkKAS7HWT5FlT7LQXmNEG 4PHU9LeT7IARjTWU9EZB3Ua E0UBQwKWY4WKD0JZIcJQIyP AowIDAg XHI4RmnfGNF5BpEsGqYlNKS 2InNcSGy4CIDxSVK6YTJwHU H0VaLqYAwlImf5VeAjHhs6K FV5KkIh OHchBaS8KfbcTnWvUJlcGnX oAJx9BRLwYBGiLAHqOKJnZD fgROWaUWW1VJFmGWG4GUAnN CS7SEAz NFI9RBK3IEA7BMQmCNU7PVI yMiAwIDUwMCAyMjIgODMzCj Z6NaN0JEXtDQJ3WBDjNrVuG DUwMCAy SsdlPMW3QWSnHZT7ByXyCBM wIDUwMF0+PgplbmRvYmoKOS LtNE5dcce9MBylKWkvLXKdL h7faYMs u5CihXN5b3AXA5QjxsSOVT8 lQT9BjciswH0Ei4kqFVHCI4 HgGNwwNQWgBe4Mj187WdIoj CBbLTYy VFZaFbg5WMUzQJIdAQL0Gz6 LH44vr0CesunYrYN1qYNuQy yDC1U9SD6CFIw1Hj4PdMXsC iT4FBxm WQRzgIqrYE3jdUVfKVpjP2Q yPFXeC9m9IXwvGnhxJKpyaQ uirVX6UCnTD8XlD1KqmCI7Y GMIE0Rq t4VowtFgVQZeVyldDSMuSLg lQrUtXVOIL21lqYfhVBDfGL KlHXKZD6X4U7umNPDuEST3L Qo+Pgpl bmRvYmoKMTAgMCBvYmoKPDw II9F9nMUlT6MyihIIJ4P4Dx C7vJGmG3RcyAGCnMXdWa6RQ LPlDd9e wQXnHJPmILflDh2vSN3IQy1 HsEModNVgVODcFuEAK3txb4 JDgBZiGSUzLZccVH4oz5Gvh krdJ8ui zyEfd5bGtnHkHWbuZzkvFv6 xzEQio3XfhMV0i5BrPVSpLJ TIX9tgCVBbeeRlFCO1MMMiK DAgNTU2 IDAgMCAwIDAgMzMzIDMzMyA kFCVrYCInYgS8BYQjDZLqYH AwIDAgMCAwIDAgMCAwIDAgM zMzIDAg MUHfSfCnVRLdTHfiCgQ6UtD oNoEeBImpQqFxYEXqUWX1Lc mkOhQpTBM4XRHeASCoGgBtM DgzMwo3 BzFyUqd1ZNN9FwR2CdfaJtQ rARK7DpM7DHXvFkTxJSVxGW V9ZTSjPzM4SHUoADMhHTEPW CAwIDAg HFD4MNUqCPD1VRLvIYO7FCD pKqFpNBUeOQW3KGLfVqw2KF KvAPI7FJU8UOL7SZwDUxMpO DYxMSA2 KACmOSDjPMurIBU7LBNuTlC 9ITYtJXS6XUg8WPI9KPClEI U2XT4+SbZmYJ1ybxybZRFhP K8jkfu5 KWcoXFnvWCAlGz6meLUgq5X znKS2r6AKN2MlwbITDM2nHY 0AmvahvD7NpLJklXXVPTbxL whjH3Sz GxIYU7YzsqOVCk26EAfbZFL 1RL9xJaMeRLO3PRI9QNgjXx 2DwMGtnJ7fZ9hahTohVcp8B y4YeETa HDJ7BMxhQ2KjiOCjQdgBO7j 7DKfqR0AzC1lhYS6gTgmfD9 FiXSYoC2l3FHvcAovlAUuvh WdodCA1 CZyKJ5IlV4JvqFZ0SFJNZ6U cd2GjyrSiKNEmChjwZPLiZQ zyOiIyHEKYG15mwDegZUXcC DEzMzMK Z0Q9X7jvYHFnEDQ5XTk+Pgp lbmRvYmoKMTIgMCBvYmoKPD dZO4U6zJKsC2WiowCAL6V6E aH8dSVy V5UdlPJSbTPlZa1XAWCtSt8 udCAvQXJpYWwtSXRhbGljTV ZVE5FkvmX8V5yvwoBoOciaR GFzdENo TWAnLLG4Su3DidXkHEokVnK mO9siIJ7jaVLtJ51csB1nOc 7Ue449EALoH5QvsWQrewRqL SAwIFIK E2ejWFUtdpCaIVB3RFFcTHL gMCAwIDAgMCAwIDAgMCAwID AgMCAzMzMKMCAwIDAgMCAwI DAgMCAw BEWpWQPhYHV4AyGbMahpBYH wIDAKMCAwIDAgMCAwIDAgMC BmIUIwWGU9HgYePPBnPCDsB CAwCjAg WTC3RuogDcy5BSqkAjU5Fwc uEEKqCPMgPMKrSEY9TzDkPI IlAZVfNgGgUWZsFSN9LjRbV DUwMCAw DPR3MmNzJQRcLDUjJGFrLZS wLhPzSPnqYCQ1LfEkFNGeHc NeNLMuUep0BVR6Go3+Pgplb mRvYmoK ODVoOYZdHzxLUMmYJ0vplwy 1pFCcCAAyImrsIEWbR5ThZP K4WqESX8QfqBDedlDaS9NmW XRlRGVj t0DaKLe+TxbkgBGfSI6PtIy XNK8gYZDYG/e+j/i0q5XAo8 wCecsjAdmEQAIkgRiWZHfJR 16SC2SU KJsvDBIkAlIQyoQCgpvQxhJ stQIBRQGJviWoCWUqRcFMtb B1mOFJHx9pRZusmvlIOkvLu 99NMkCn Tv/oTO07+s6a3cTBL/ecc+/ cjoSLWQz3dZS00pz3+ks5hw +d3vhWIu7v1dBt9rlnvyYpU ZKNBf8b Wr/0N7/EaBqv7stB5oMXATF /ec+F6Tg/jiyGr1HSsOF7Vb QwAl7QYm2Od50ygKeVALe21 0ThcVT7 JX4MSVPSLHZ5h00Rv48Rnuj PfmH70IucI14rj6kcJrWNNM /V0HzPW+PCQC9JWYQo53x5v wv5tuab jRRGB6OXKQjU0QHz95m0xVB QAR20W/wPIdXUORO1dnRAEx os1OnrLO+96CqtTA7nKLMGq /Za9D6D UJg1IcKofqzolMW/J2Jw3E5 jXg4GS8cOuNc8cwlZjq4QM+ q4yB0iWgaky6UvD+xCWy+c4 3nh3D9j gmtkPEor+XX33jbZLo7+xlm Z0b2W03/gQ/grSSTFJExOok 176WesUzAdZU8pLKahUCleF k3nMSdF UawGD2qGr2YRvQXL8hJqOW6 V3UMbB74I03oSDsIL9UEXKS C55ffnNx4qZu3KXgZox1TFO ZlHGsmT zSAoDTR8Sk9XzOfQv06llvE So+VLynLlAEqfOp/j2KNQaW VTnyOIUugJibk5WzCmKZ9Jj qOWbEDZ zU87ZxlXFxdRliNDH+DnfE0 3RspeUdLrVeQXmG8ZeSSTAT fjyjlgfI875lI4tMYaf1eL/ D3e87B9 xOfFS9FerkcPf4hQ4au1Gig xvUg/b05NITmhYDCmcUn7LD 2R3pXe (more content not included)... Normal [facility] Please click on link to see report pdfCD:[id number] ZFYpYpz8EPZzEpMQ5saqx0K EuuLRVnUVVjTTLgPMGSNh6F B6erbfklRHAuBdJqMTFv RAAyNGzcmeOoa7CsfXN1DLt pQq7RrhLlpX3yRZsYW094vD LfmsGpY08akH6bRLMdn26fJ g0EywMs hNlsqlTynFSmIAQ7HkAjFxW rKiEsNCX2QqRlHPYfCIHaAO o+BqnrfnSsJvhLRERgGU8fd rh0FRlr WZdgMJKyWc4jmGLzq2ZqqSO 0j9XFR0UbsaNYXA7zUZ3Axj cfqB7Po5qjWEEbaZxyKSKBT 0ZsYWdz THLjCq6Ps329IdRmlTYmTJJ 2EOSnHux3HZVeJXReZZWeRW 6GM49vk6ZhyrtUrGN7qWJfB umZG4Z3 BU9APPy4Mo4BtOGhMcU5WPv fRJQynVwhTC0utIXoVDOdLx 9YTMDXMRnqnJQbWpC3Op2OF QWiR0u0 RTXaRGtnOCWlIR82ZTafVPu bOPKwJ2YyrPLoXsAxGh6ZBV LsyY6rTLN4XCfyMBQ6G8yhq GggMTMz WuczKKZdM6rtyJlnHTp1Co6 +SjHkXX1ufry4TYRnj3ZkUk r0Fw5DiVAaZY0Jz418Ce4Qx ZY3hHSb RN7EfuCwROiaWOdhAcNcGJQ szfQvY4MuoSKjUQUtqJEQsX EseHBXJIpcEunum3EGtGFdO HHvXs0Z BLJ3M0emgaWcIYUJT4KkI59 qqW6cFI2GlZ2ByvPaNF8ey3 OkeerUG9YcnlZTAHTdtacbb U6uEKFz FCTYLn8QcSB8cKTtWjCjYqm gMCAwIDAgMCAwIDAgMCAwID AgMCAwIDAgMAowIDAgMCAwI DAgMCAw IDAgMCAwIDAgMCAwIDAgMCA wCjAgMCAwIDcyMiAwIDAgMC AwIDYxMSAwIDAgMCAwIDAgM CAwCjAg MCAwIDAgNzIyIDAgMCAwIDA gMCAwIDAgMCAwIDAgMAowID ZtRNW0JCVaIMO7EUKhROS2K TYgMCAw FIVgWac5YVYtSYN8KTRtIQe 9WzAvUMZ3KRBcXHJtUJB0SE D4DJGeVmCqYD6+YcVlRU0lw xf4BUJw x6IsZpk1Mt2AbVTuGS3Ia32 9XHFzP8IkyMFklubpAo3yzW 1pqQEcB3WpsGGkJIZWA6BdF WdzIDMy Hq6Do897KiJcnKZlSQC0WNP bZgK4KWWwBJSuPYT6ES2LG1 8ty0IxmzbZrMD2rVTkYpsOW 1S0QU9H SIy1Hd1HdSBnSlV6EKicBSA wdFxuMX9txWWuLTqfU7FdFH XlX7h2JFshBnerAQgbhRbfo RE7IJnE R4HuA6ExuQG7ETMTG7Mnp6G lbnQgLTIxMgovTGVhZGluZy TdUMXWF50pmMljKNWmAVMvI SJKV3S3 M7gbINDaFCP7FNb+PgplbmR xHgkOAKGdMY6xppk4RAzyHK ldHAYjNs1iaRnnO1TopAnkI SAvVHJ1 LAS7wQFYP8Xoc1OKa946SH2 JszuybR6DFr6PdSQxqONsCU ExGkYNX1wib3ITbWFaHTCiU ZalMC5t s6NkqkbuB0ywpfYbi2dXocW sIGnsAtwnQu9qpYGyg4JjaU K5x5AcGvFsDNKMG9deKASii yBbIDI3 BQUfSZCsHONmTSp9XSRwOUX gMCAwIDAgMCAyNzggMzMzCj I3HDZkHqmnAFJ1WNA7PwU6E TYgNTU2 MUT9XcW8CCLxOYF1NLS1NhV 6PSZiWGI1MOB7FBHaQKH5SD LpGtL2PTW9TBOcDLZ2RhwoE zT2WSdm HsN9CsSeTzU2WIVdCUGrHPw uRlQeBTHlJyG6YEI3NlK8Os PGRwAcISf0OSE1OglvLhj5X DcyMiA2 FgzaXxSgLQllGyKpERd5GSQ rKRO7RuIlDVAcJSWsMmLeFR ZkZTT3MqS4RGSqJIFsGFE7O fN0NBCw Bha4VSB6YpS1AJFiFzNzXZJ eBAMmYXHnOcU4UhWGOPP2EE X6KxH2FQUiFPS9LQMxMvQ4P DAgMjc4 DUA5HjC6GFXzYzNeQOYzRZG 7PQAwQy2NBZ4ir0UmKjtrOR AdUmwXARfYU4V2eYZpC3Cpb nREZXNj knoglE1uXp8Si447JuPcDAF nDRKqDNniNq7iAT3LWg4SmD VhjaQhRypvSg2obKDNu0zgJ h90Qbva GBK3VdRiOKQsUKBeHQCvFq3 QqWIbgS6oS3hawQgcBtj2Ji 1BkYQgZEA6LAwtP0EmeSOpN alZS6w6 ZEttM7OaC6fsKLRCX1NykVg xrGfzyPL1RJIIG4mYIHzktK DiOFH5Rq8Ae8ApyoPbJCK5E i8BLKQw ZY59SY6dPMISU9gzBVPwpro bOUUiYg8PDZqNsHQ9oKCyWE YhNr6BdkbGmPS7zIH5IdjXS x7TZT2q p4HrGgFbTBHhx4UwRft0Et3 UoJHeML7Vc934Vx0RbCX3mF OeRQ4ArnPfSUleIYxuYcPmZ UZvbnQg O8IhnBZiYZJcuFQFPFyqUui eb8CHsYCgWWZpZi4OTAJ1D4 avsiLyCiDVY8CvJ77szT7nD E6IaW4G tuHuXM0zm1HtofeIP9EiqnQ XTEWsbjhekO1pXBszAWLEPr 5UnCN6cEPoLpQzKnocWVVbO FG5ImFx IDAgMCAwIDAgMCAwIDAgMCA zMzMKMCAwIDAgMCAwIDAgMC AwIDAgMCAwIDAgMzMzIDAgM CAwCjAg OHAnPEinZtA7DiOaIyOjDEd uPkM1JwbkMgPsOIl4LNE3Ky ZxKxx5PTRmGUPxZDgdOgt0W jIgNzc4 JGS2VkRnHEmfBaY4DcxfZzR gKMjyOhKuJQHzKGD0QvgbQC FzNANaKAxwQDWgEDT9SWDgG jExIDU1 BmF4XXMvYPN1EQTnLuBaSFK qRELnLepbDNG8SRXbHcj7YM m0PFb1CPCbTrFqIAQgCCOfH TD7ANM1 OVTtUlFuTISrHPX7IVYdRDW 0UFZ1Sz8+PgplbmRvYmoKMT QqGALdYdwOHGsZN3fzduf5z DEgNTAx RcicHQGeT3NmDYZ7TiPFF0Z reGTlpkKrB9MqYIEfHIWoz8 RlXQo+QevupDBgKZ7ZeSgVU Z5eJMAI P/e+j/c1k5MGs6xVcfyoYvb GRNZsxYwTLUpGR84OK9PMIU svDBIkAlIQyoQCgpvQxhJst QIBRQGJ cyEzPNPxYtKBklM0vJOVBi7 mFXpnlavLTitUx76GTjZoVv /oTO07+v3z0dYCZ/ecc+/bj wABADu0 aAA48xj3+ks5hw+x2krMAm2 h0xWm7pxbmcHvVAQHDi8aGt /0N7/ZnUal7ozY2pEBEKJ/e c+F6Tg/ eveOh7FYqGH7FoGeDo2LPr9 Sd25otXwLONz951DsnUR8YP 9PVCKRULE6n82Qg65XpgrRw lV27Bxh C61zl1qgUzLHSD/V0HzPW+O LJT6BOYDg49p2lhk6lbgamD JYG6GFJXmD8DSz18z0gXMBH R20W/[place] LoQDBEI5fuNAZkhp2PmgQU+ 03NucDN4eGSJRv/Rj0K6VZR z2AwMtiduceLG/S1Bp1F5pL h8XF4uW zXe1kuxVyo8VH+u0xY1eTod gp9BnA+xCWy+x56wx2L2nfg tkPEor+LJ53euBZh3+xlmO3 h2Y78/g Q/sdJUWRRDyAqj701IrqQqN eME8nUVudNNxkZf4yLQoCQm hJP7eJb7MYfLLD3nJdCT3H3 ARhZ48Q 79ePOjLY4TLBMUR51cmrGp7 xXe9JIvQut5KKZVwWSluVjS VqJCE0Is5PnWgMe71filFQs +VLynLl AEqfOp/l7MNLmFXEaxIQIyo Qizu4CmWlLM3TwzYYmSTNrG 38HuyDTtgPhyECJ+XsnY27R xfgGnYn WoBChX7NoWXVIDiediqiiR5 47zR2zIBoa5yV/P0l16N8vL nBE1ApyudEe9lY9tr6Rrmqa Ug/o19I GGfiFCCobVg0EK5I4tHrlzp kTnm//BH4pPJC2+qKyYiz3e o0alAnU6dPhaEz3E50gh0ey GBdWVhX ULfIzzIhHXggG9FeIUnqNZn VUPokG10AucEsKTtSvSb2eL mIIMgWRqZDWQ2DJZa0CIvfC CLHsZb3 KG3e96qrsF/P21JzurmTpb7 h+qhqOArHNdqP7ibmL/RFPJ Fg6QM4wH5VTr/Gj3zqyRChZ UmjJZ/k B4lzCJYXDYxkEnk1yY0wc83 Llu+Si+X58n1Y+1t0vhaPy6 IqkpKhTFWmozQqDymblFZlL 57ofqVf zvy9Vp9qwYKK1md+hVp5TB3 HuqscP1PciA2vd9fZE5rAqV vsU+7gcNJhmV4VXKuVoZF67 nbo4sY7 3W/Q+8NwSMPi6MW0YUIkx29 eULbBoqgNeSzExk0s88Foya /XJBtUymdhgbQImpRaKYpdh kNktbyZ gIq90l71TZvCKxcerS33aWP oM0Q/6dPSEbaehdinmOkVaZ zIsDlBCYonSWGl3dA8qbWR3 6sHlG7N UuDwnFs2TMtBbrXUd1cBxQS ogjevf8ueyKTX2gR2wrMwC+ 6gU+vWxbJYQVRaQJ9p3Ibmi IgATzT4 /NyswCnzDqX51KFdIhjCSeq mTbQ2FGgcnVYAVoL0aWM6jl MRPzqIZqo1dFIUFcEBgpbVA QpSBcmC JEHEcw/wA6gewW6hkrs1U/E t5uAWn3bvqDQBYcUViN2QmR l0nHfVDyFeHckI12CVaeoGA UHPCzoo 0OdMqdI1Sd1CcAztDkKNzGS ICgKPB/lDxPuIPsRbiLOIM4 sQIUyR0EiNRL1XEwUHI+rLc hNtibb8 6l3q7vYF3hem3s4nrPxsM2f gl5m1JhneyPsEy/vHmU5K2q NsrDZG (more content not included)... Normal [facility] Please click on link to see report pdfCD:[id number] DIVwTzd9NJLaEkTC7jyky0S IuqEFJqCUBpDFVhGKBIDu7N J0ncmakmHPGkAuHqFJQc NQPrOHdlqoHxw6SayAW5PSg cOe9RrgGvgO2sSHqIE455cJ QjygDfU62pwL0oAPKgi50vE h0GkaWt sWlnclMoxSBqAWA5AuNrDhG pIxLzGWM5XmEwTMOhUGQfMJ o+XsxxorGhZjwPXPBhVV0uq wp6OUtm IBjyIWWwSn1iaJYdd1ZkbKI 2e1TAV7CjcaOBXA3aGB1Wfe qvjA2Hh2phHDCmfAduFPBJD 0ZsYWdz QSXfNb4Yw788HmKrcOGaMIR 4FHUrYqk4PJVkCWDhWEYgLA 4FS91jo3ResqfCeUX1sLMhF eoRN9V1 DO3YIAy3Lz1EpWAcWbJ0PYc lVUVmeFjkZY3hmSVhXRHsQr 9LPGKBQFcrmQRrMyA5Mo0JN EPbZ0m5 CURqANlcVCBrBQ42NIsePXh fWQUkT7DvbLItBiLwDg2UAW DxaJ0gOJD3KWjyRAY5A1min GggMTMz QxthRYCfC2fssMciAPz5Fl3 +FsZnEP1qoqg2LCBwh9CsQf r5Yp4QlOXaFX5Ph531Xs8El KZ2iPVk TW7OkdCdCLnqIFpuJlBlWKH uuiBzJ2DkjHBfZELrbUWHdT HaqXXIBHbgXlwen6WQkTVzK MFzLu7G YQB7F9ixvtOeQhTIR1KnI21 ofP2hZN6CtS9WnhYcAC2ts2 DsltcZR2NjzuUJZVAlejixi E3fBDUc CSYBSo0MkXP5jJGlWzFzJrc gMCAwIDAgMCAwIDAgMCAwID AgMCAwIDAgMzMzCjAgMCAwI DAgMCAw IDAgMCAwIDAgMCAwIDMzMyA wIDAgMAowIDAgMCAwIDAgMC G2LsDoWoW4YDQpXJPuIZE7I CAwIDAg QSJ5VbUMGMYdYLM5ErQqNOA gMCAwIDAgMCAwIDAgMCAwID VcTBJdReZjNFDrJCZ1IyOeX UH0HgH3 HFXlWOO9AKTzCmO5UAVaZLP vJluzXSYfUXOrFXx3GuHkAD U4DNNfQiEdADBkEze3BQA6D iAzMzMg YNNdQYCqQOU2QOX3Ig7+Pgp xtjEjYpdXLmXuXB8gkke4UX wrNAybZSOkXr1daZEni7Owf AZ3m7XM R1GazfDCHY7fUB9TdpgsdC6 Ol2ooJZJAV9IkPWfeTFToKv 9Ty238XlRxuWAjMFWeITRkW ca5LCSj KMRiGJY0Xl0YS96og3Ykabw NkDT2bZYpTorWC1S1XK9ZDT x8Kn7PtKZvYvA8ZAqkHDRce CikVN7a eKPeOQgpM0QaWPOfR2n5UYl qSrvdECvtoEzwcND2NBuZZ3 ZsV2LplKC3XSYZZ7Qww7Omq nQgLTIx WkemVYLaYHkqZxPhECZVP99 nxCurHGWbCIZlVGJQP2L8V6 hcBXNoNOR8SEt+PgplbmRvY moKOCAw TI9onpv7CRreZSrjJLYqLx0 qtLliA0OurDqyLDWtXON6PO P4kVRLM3Rkh0EIs631XJ4Xw wvajR8Q y8vsMWKKK7RyesA8C8vkutM zMgovTGFzdENoYXIgMTIxCi 0AdbLeTJjxOaQhY7ckQH7ns SMtJ28e nJ3wKt0Fn245HCKbD9OoaNR ejmL1FPWiArtuH3cmeCbhII ksFty0EYXpYSH6VIOvVLJtH DAgMCAw IDAgMCAwIDAgMAoyNzggMjc 4RKF2OlM3DZPlARV3LRT4Hi N6MYVsTQP4XRE4LvG8LSRkM VT0HJF4 NiAzMzMgMCAwIDAKMCAwIDA sAuXpWXubUuT7KpYoReHyYF H3FuG6WHRdDlg8YNdoOiLpH zggMCA3 XcDzEoHxOFptBrr8ZyFzCah 4OZM2KjFyBRclQwR5NnfvOf TaSGkrPiJfOBi9ZXXsFFUmL CAwIDAg GAfbVCAlWZO9MOQyKkXiFJC 3DrK7PQPySCT6EJEsPqOmLT FiOUGoVnxvFRZ9YDHsGzh3D Gi7WHo5 FYJyUvYvULAfYCI6TEBrTve 2MOC9ZwBxPbJgChNjPWB6Eu L6QtqkCXF4KRP4Ar7+Pgplb mRvYmoK UXQsYY2zwmb7PUyyZIbxGWG nJt5isERvp5KxeBP8r7EBJ2 GkjtAQRB9oOA2ThxyyxZ8XN u5MsWQg tbSeBeefOv5gxYARi2jlXq2 2NjUgLTMyNSAyMDAwIDEwND KoSz2RgDVlyG5mY1tegYppQ fl9Ao2F oUDgMLJ2MBrlQ7QdeJVwLuw LO4p5TKeuO9JsD6dhXFNNE2 MjuZssyEckuCT0UJFAH2yNN WlnaHQg QAH5Qk7Vz8KjdyYtOXF9Dp5 HNLMpWT68ZO0sWUZKZ2pzDR WomqbuLPJzRi9IYPwNnDP3i CAyMDAw Fr6RqdjUjFA4rCC4ODATPz7 DGZ4tt2ZeIbJlTNIkz5YyRo g5Yv5BeKLcVF4Qq393Zp1Xj UB0wZSj XG4XhcPlDXvvRGfkXtFcBXM wfmCaT2SqyMKiDHKZZ2Gfye Y6I1kvfsUjKhihZHTgrLAdL XIgMTIy Vf7NdrWmPRgtQuPvX5qzIC9 fqKJuL94orV5eHh6Ov912TQ DnL5SkwXAslxE4OHXoRereN 2lkdGhz XHosOrl5NQMgUUZdRITvRDr 1XTQjKTPuNIQiRLDgKKR3QF PfBlADIif4GND9PHT9ZNSyC RF8WEN7 FwF0CHOpVEZ2IVS8ScQ9QSH iJBM1KKMuGQJ1AUZ3ZVNuZR FaANwgPYIrPWS3UjcuBcV9V DcyMiA3 XgJgWjG8WTVbUZVsJSGpJiw 8VAVkHSIoDIaqLob3FrDxJA Z8AnswDZE6SeByPxE6PWHeR HC4CyHb WKO8UFByDIOgFWWyBPTqFTI WEOBmKNMsRDP6XQY7CoJ6FE VmZWA2BJG6VfDpFcvqFVU3C YS8OdVi InLhDNY7VGEcFlLmREvmWoq 4TFJmCSX8AMZ9SrAjVJGmDv J0SUThXax9HDQ7JlW6RJTwC zIyIDUw WAN2ITWrSWOpAU7+CmVuZG9 zxauoDTJnSC7lcjq3BHpnYZ TbH0RwPWS3FBAlBh1GKR0is GggMjg0 MAovRmlsdGVyIFsvRmxhdGV EZWNvZGVdCj4+UsW4vuLobF b51iIEeBNO2PT/036Y1FRu6 0nKWnjL NhSWUiQYYHIK7aGOAffX3JK 9wOWxfVZyGVzMwRJDIWmCj4 YlRqrMESBG9YxVLsiURMcWn xNT3A9S i/1Gu8MRLxbCVzfj/b33kgy hI9M/+nj7wOdi/y7402rglr m1hunwlECZg5tGRI08/Trtx gyDg7A9 QiTlNTTfs+kNy9YWAezxJaF 1CJ2rI14F/+NuopjLROxyY3 262aA1H/GoX3x4vnwKNf3Pn K0M0RC4 oOJA8eP1v2nBZBAxQa8aNp8 epGl07ijUkD/h/mCaibj2H0 fKU+B/Cf5a8+b186KOrmnrw Pma+ub5 o088RFiON0pE/23X+W+1TIP UMj/bvShv7ChyhffAGT7xTK VTO++yfSgHMDAqp0+lHsqmN ZY+hx7C AvC0jM4luc2TUCpPbAkcF7R 5sNWCmRWjnbVZ/YFmqlru0X 5+mp+2pTPWf3n5nMH8UT1Jr /G20It0 wE4Oj5C0F5hueA45Z7ZzpLQ usMmQVvYJ6+SD5SAcyeMDRv 925Psr+pD+yhJZPguxk/CJ5 5utXOzV FvMdVkAtzrTTGpgUaGVk0OD R3wzTXrICS/MdvIMb/LQQEP IcCtscyek9KBexcxLGykxZl N+jhVi5 rc1mkMbLbjdvHJjLc4IPss0 zkPx6FF2sSL6NTQnxTOBhAm wnRMpemrX14kIqidqlnnDrx SONUmk6 oxRyiNjfPJu90qDCVCd4AO8 2Zm2tBalRqamPN+hU1ds2jY 7SFXQnFmLWNZPNYksgAcgat ajwDO1q y7Sn2ZlClE8nu9oK+3wCqra wYuIvPD5kS/Jj/G3+Dv+Y9/ LP+AbSHH2azDDqmETHQKxZm 6B8xVPh NSzHA5nyTMytoL2Vh4ha6MY tnL4lIFzRihdeFZ/yinMqjU MxMkeofDhfwq9t7CTtTJDi3 yKQY/Qy pIc+N+lKWZ3MQsgdQqlN8SC NpN1cIjuBhOCvLtm6ke6FBw PabLZ5xLnzWvsC+9G8eqlCX wZuah4X XyVfyJfwlfxx/gR/ir+AE9n FT/IP+FYN4Mj6WUIKZW2vHg SYl5MZYDSlYjAQZ0SH9sKpC ejDvkWL k2x67pTuugY+PlePH2EGymj SWwKYSw9yRliR5aR7Pqawbf odWygt0wp3oNVLvsuE++Qu+ EG4jkGj JCsTIVOVacpCpUlZrxxWepV D6HAVGuvJnelqDg1xV+nV65 9qi5F8U+k8d6q7sn8Liermi IWXZj57 CGgsshhdNOQ8htM1FOr7Z4v iOKhCPEtLhGXUJNUIUcolOs eIlnrKL0JC8oTKuFSxpNLP+ oQDUqo8 2+3br7Q3vAqJshybxUKapXi tVLynPzcCDzRk3VAvFDQ1Ub rn45UcwJtYhmLSiAdgYds8g 9qXPR40 T6wPk0ThPo7MZUMF8mSwyZ0 4lN4hF90jBSumfKYLL68vZY Q21HEWfnQd82BlgvwGeyetv p9sQjC4 RcCKVh7j8rKYc5m9yE20zdr vF5rNcWtFt4dWGx0Z+TbNsW bIItGNct5NMsi2J/eBrLB8K cI84LDb UbHz4ZJhCopLNUYdR/YBe4E 9ZRqvZomOiicmE2BMb0h94I aspEwc71S33jNf3FUCb740N dcmxSbJ Fu7Exl5pA1V4lM3cBbTasKA 7EZuJyIXhLq5Ku8FAMQ8efa Ij0TEz (more content not included)... [facility] Please click on link to see report pdfCD:[id number] FSPuSah2QMZpTeKL0wuia4R ZcyUWAzOPPsJUZlZLSIIh3X B4hdiwygHAUvWvCgOZPa VPJpXOejkvLyt9FlcOF1FQz qEv9GxhYazZ3uHCdSE424aE NnqyQtG22fgY5oDCDsx24yK t2RwzMw iErosxXptYQzTIL5KmGoHcI xMzExNDIxNTItMDUnMDAnKQ o+JronadUuUjvZKMZjCC6zy ag8XNbn KOdpJMVnYm2zlKMvz4WoiJP 2w9TVI2SnvnVRLD4zVW8Xxb ghzP2Pq4ykLKCetUmzKFKWA 0ZsYWdz GBZjLf1Rz409ZzVwxCOqDNJ 4WGIgJem6NIFhFWAkDYWtTA 1WQ66nm3VoatmNvOW2rFHeK qoJV6F8 JG5MSRi1Gp3QeSCkTwX7SFr zRIWkbIubPX6heYRtGVCfUn 3LGWIDIHrfpYZlCbB9Ig7ZW NGoE0g5 OBCvAKkbUYKyBR70GGmyNWr gMVAxS4WvaOTxMgEqCg8IAM CivH6lPGV5PKcrBKM5Q9djp GggMTMz NsfiWWDrA3fqwBseIBa5Db7 +UiCrKJ2ixer8TVFjy4MtJm e6Eb8BwYBmLS8Ns014Ai9Zv CT9zOBg DR6XssKgOLmzWUhfAuEpBOH gzvQrC6RwiTWoZPGahJREkO AhaLETXPtxDwska6LWuGGwF GQrJo6L ZWR3Q3tilyEjAfCPY6MbA91 slL4sCK1ZjT4UnvUtKR3fn4 UeezsIE0LnszVLWDVqdvbtj W2vYMFg VCIFDo2UeZD1eKHzFpKjQqe gMCAwIDAgMCAwIDAgMCAwID AgMCAwIDAgMzMzCjAgMCAwI DAgMCAw IDAgMCAwIDAgMCAwIDAgMCA wIDAKMCAwIDAgMCAwIDAgNz BxULB6EtHeUDStNLPkYnqpP CAwIDAg ODMzCjAgMCAwIDAgMCAwIDA gMCAwIDAgMCAwIDAgMCAwID RLBXDeTGLpSPX5GLHdPTW8X DYxMSA1 NTYgMzMzIDAgMCAyNzggMCA nUOB4QTC2PRbTEzKcSEQnVY BfYCPtZxk0ROWxFlDkIALpU CAwIDAg PJC8UZ5+LvQdTW2qjey0SRP ml4GrQvn3Fv2ClHYxCC0Fy7 84UHTnA0TwtZPvzuorSi6ns F1scXIq R6NaxIUgFETitKQSGXgkQmm mU4TjZlDLB1CdwlMRMa97IS pbIsQ7MD6uOpUoFaQpLNDwZ QF9QNma JSwht4bfH8bxUMQnEYU8MRi iX8PqtDbnLszXB6D5YV1RJM g6Pv4ApDNuuOTOdfogENKnZ n2KKLYL SMsajBMxZmY4Ue3USZAlA5x 3ULUoMQrrWUTuCW35QAagGB nhGVXiN1XroZQkKaHtOp4XY OStpF0w CBE0TTblWSU7Q8rwbVjiBnR gOUibHSNqT7fjpOuqOCh3Ul 4+DyXqIE3mcny6IAYmz5FpZ nz7Iy3W cWRmAR3Xp311Ey1WmBG3oMW oDO2PshWaRRtyXNofFaViHB VszsVbY5VcyARvVTJudIJNN AovRmly w6WYwAIbFARrTk8FHUG4K0f qhbZrQyVKD9YrR81ofO5oVG 6UeK7DbaTuLS8um4KmxgpPD 0ZvbnRE BBTjgkuogC6oKZivSEDBZo1 SgHV6zVKpQsIrZiugMJUxOI K3GjHiVTGsRXKmKUQeTESpK DAgMjc4 LOJjJvqmQwggIhj6UZA3AaY 4RHHqIUI6AYU9FgV4PJOjFM Y6NITbENI4VYO4MvL3OKTnS zMzIDAg UDFcImIbZDNwFVnjSeS4FyX iSvWkDLrnFzW2IktzVIT3Nd okXgUdZXL1XRLhDFwiKpI9E TEgODMz YmbgYoU9JrhyOvS9ODb2HEW 4IiZlLrT2AZDpWAK8ImKtDk W4GHt5GXSiZQVlThCxQZErS CAwCjAg FNHoZWA5IxF1FFLxMMC1YBV oDDU0JYFmTuBmRWUgNMZ1EM SjHch0RJVyJRZ1ILI6VIC0O DkKNjEx MWMoMEW0FLItUfHhIDV1APR 5XRAiJzLeVSHvKIE7UMUsCv h3RVY7DbN1DDQpSMHfAO7+C sDrBZ8k nmo8VRKkk9AdEdf5Pb5LlWV aTN1Cd861NMBaJ8LepDIice ayUy8iyX1ryZKsX9LjoKwnb mktSXRh dEadHo1EnOOhnnLhJumfTa6 ftNKTn3dcIj63LjUeNPU6Hw QxDjUiJZZgKqZsRy4YvACoe Z2zK2ce qIyuVgP8Cb0FuFQfTSP6WHa kH7UshBTbUBYNA9n4VLnsO0 YkO5yvUL1qQWarO6JjVVJyY 8j3DPYz VPvzZGevcAknuWA2ErERF9L lE1JayMX6YPMZZ7Pwz6Tgou RpPVH7YOqiKKYzLCgaNmBfU qVMX27g vNnjOOChUGNmQhjVB0M6H1i pZHRoIDUyMQo+PgplbmRvYm qXXIXaTIVkYrlUJXyFE6D3k NVmE1Bm akLMV1S8XoM7iAUcH7XqqDR ZvFBeVj0FDJYvIb8mjDTlX6 DvyLBbeW2IkKWckNTIQ3Wpx pY9F0cb ciAzMgovTGFzdENoYXIgMTI sFz8JiaWnAVbzXyQbS7bgPD 8jnIXwR26jvG4aKq5Oy411M WCyQ0Lw qYTyidG2EQGiTdozT0zfjZn iKXdjAoP6NFGqVFCfPDUsIS AwIDAgMzAzIDMwMyAwIDAgM CAwCjAg Cgg1EWNnWYFrVBJkEJNfUQZ gMCAwIDAgMCAwIDAgMAowID UhRRO2HcsbIFV6ZgDwBfQ5V DAgNDU5 ENJrLSD7PzUvOvIuAUYfVNH 4DdSsSBZ0FlG9LQC7LQGqSD Z8MWKgLCKaGWP6XwV2GKfvP jQyIDAg MCAwIDAgMCAwIDAgMAowIDA sFDD3YRMuILS4LWKsYfS3TW MhXSu9QZCzUME1TXQgHUP2Z DIyOSAw JHChVdS0QTa5WTi2MMKhZRP aZTQoLRAaDYS3NrEwBKfzEh I8LFAqGEV8UHQrXEN4EmJzW DQ3XT4+ FkMrYE8dbkadMGGqIP1cgid 0FAbfJSzdGWPgFv7mmBVmw9 BykVY0a1SQG4UcsbKFSS3cZ D6HXWyn FoQcZFFttTLBjXDwlASGP6Y tTBzbKHKhKt8Li462TaYscH JdWWU8OKZcJjQ6XAJnGeEeX VXaOB9K F05xo1ZpavdCpCK6kMSjEgS KP5Q4DT8HOKy3Jj6CnCHnAc S2SMkaAFLxsAkvWY3arKAyU YUiQh1C WATAWQkxlCUaFuX4Dt6PZMT eF7q2LPK0OXytWZKfJE86TE x6JwykDSPsB7XnnRBbYiH0H c7RUMXm wB9oCXTgMSxjCPE6W0kanYo eZAGzCHwbQNYnV4jzzAsvDT M3Cj4+GcGvUO0mvcgeQkQmG S2kkkt1 CFjrFMkkWQGuRq4qtJneG4X oyIupBLNhNNX1NDN8rCORC6 Bhy4QWs707GB7LQOjdHvOhI UJvbGRJ rINtzBHIG3ClboO9H3vetlF zMgovTGFzdENoYXIgMTIxCi 1TbkOsPWnmGzCgZ7rdJZ4gm EQmS82i zU6hFz3By653YUCuK5EvaUY xtoDgFKEgZGZQT5duHCKaby BbIDIyNiAwIDAgMCAwIDAgM CAwIDAg MCAwIDAgMCAwCjAgMCAwIDA gMCAwIDAgMCAwIDAgMCAwID O0ReXxJDWjBEczJXLwZKI7F DYgMCAw YCHiDGL9KVksCMZtQTMpYSL aTCOkLKQgSMw1ERytCJPdFF AwIDAgMCAwIDAgMCAwIDAgM CAwIDAg MCAwCjAgMCAwIDUyOCAwIDQ cFnQ5PckoAFyyHFHcWZVxML Q9IfPjPEJwEcR1YLWLUAM5T DUyNyAw UHWxVcPrLWH2KKHhFXbvKRX 0GilaARNoNBZ5NY7+Pgplbm RvYmoKMTMgMCBvYmoKPDwKL 9Y8iKUe F2MvetRKQCOtvodalD4gAq6 Rz108OzSwJXSfBQNvTLpXSP pkKhovR6AlMvQOA4HhnhTXH i24MYmg PbO2AM4wXvNoDfPsEKYwSZC zULtzXEdin0vhI5jdVUPvPE G2FDpkQ2FozOfdMozWK2R1O I2FBFr4 Wr0JeCIzgNCUvimdFOSzRv2 ZVXBAABrweIBiIgR8Cr4LVN CsE5r3DHLhGHprCPVpDB38W DkwNQov VFTzZ2VhjOArSsWuZr6YCHS fnA6kVNM1WLraJXP8X4noyQ foYjCdESvkQNQvF9gxzXsmP DQxCj4+ WyVyIX1hugqfHDDfOX3xawc 3JToiKQfxBBRfRs3tgHkjH5 AupSsqTWVjGEA8QME1eRWPN 3Lxq1AG a681HP5NuvsmfG1RFr5IqBI obXRyGQZsWlPGT3pvc5LKmR CqIVIjYqypGM3av0PpytxdX 1dpbkFu e5pVssNnJYmfZkfhVh3nfLV fy9UevXD5r8YnZIAmNPQIEm 3ZlPO8pWPqIzTnYkpqWGWiG DAgMCAw ECRuILOkVBWaCCQ5JTYzGZL sGrHLZdb3NVL1FVC6FIGwYY U4EUC6BeF6JTZfZPA4RUK7Y bV3KBDe DZM8QAAlOJVgCrurCDBmHAF TYEHqOGHcSdL8GGF8MoR5Vm HdYuCgCHH5FaP3ZWYxSJL7Y jIgMjc4 DAFcTHDfNAxlEgk7BbNhNHG 0LwupCDY5ZlSdNqI9PAKvLY AuWZBiVQBjBRS8WdXsZJKfX CAwCjAg OPQnKUG3HuH2UYGtECGjQUY 5WpG8CJWeKrn3FFT1HzF3PW RaHxHnXZApYEJmTUZjMhP4A zMKNTU2 QCY3HzY8STZxBRB6FTJcLmY 0OQLaNam2IAO2SkK0CGHmVt IyIDUw (more content not included)... [facility] Please click on link to see report pdfCD:[id number] VMSwAev9APKpWlWD9ljeo0B EreLDOwTNKaGMTxZFSKQd4D T7hzjkxgMCXfAqXsGXCu AZBgGUceayGzi7GzfAA4VQj sFo4RqeWsfE4aHEmRR170lA RzliTdS87ylG5dHJDuv89xE n8SpdAw aBvppfBwkFTwQLI5XxQqFdL xMzExNDIxMzktMDUnMDAnKQ o+VlhedsYsPtiDJFXaDB1sq mu3IZxq DOgsRSNaYc3ddHOhc1DsrGR 2i1RPC6PzvlUDBE3sUE2Uhs zicF3Wu9hxTWSlkOyySIIDP 0ZsYWdz GGJwJw5Rs142OwAumIKoUVT 7GAOvZqs7JNIuFSCaPHBfOA 4WA16uu9NvkzzNtEN7cDZuJ geTT9Y0 IP5NNDm1Ef9PxHDcIiE6FOn iQXIuhIehGP0mnWHeADHyZb 5EPMAKPLtyfFJrCqP3Og4WA EReD7q9 ETDhAUyfEINuYM29KEwoJIa sUZEhP0HokWYoAaCfXy4WQG VodG3lHBE1CDjfACP6R0tst GggMTMz BydbEUIlN8ieuEgiWBf8Gk0 +XsPdWD7lbxg9HNMzu8HoZc s5Ba4QzXTiBI2No694Jz6Oh KP4eKTm AV9QumYbJWuvCMaqJkRmIVV iceWyY1HiyYNhOWInaTMJkG BpoSMJYHftAenfj5RLoNBtR KWzIo6N XIJ6L3yjdeHjRsPBF7WcQ73 xsP1dQL7BuI0SzvOuME9si3 LwzumFC2LukhUHEITyzqonl S0iCMPc XVBDQd4XeTR5bDSpJiMaGqf gMCAwIDAgMCAwIDAgMCAwID AgMCAwIDAgMzMzCjAgMCAwI DAgMCAw IDAgMCAwIDAgMCAwIDAgMCA wIDAKMCAwIDAgMCAwIDcyMi AwIDAgNjExIDAgNzIyIDAgM CAwIDAg IHZmGkKrHSG7LuawZTA3EnT iIUF8ZLAlKIKmFZGnYUJuIH FvGJBsNZMSBXXxFZJbNWD8R DYxMSA1 MHCsIkUrDDK0IaJiEJGkAXF 5XXLeIsl8AIZgBVXyMxhqGO i2LxAdGQC4OFHsGjIvMZMlI pm8EDB6 NiAzMzMgNjExIDAgMCAwIDU 1Nl0+PgplbmRvYmoKNyAwIG 3scxe3IRvhPIxuTMIkIu5ax ZJbu8Hc mUP2w3BPA9VshgRGVI5dQV4 KghjusF9EBl6FvLSmkpXmCv miTz4ryGTDk5hwRk53YmQfK TMyNSAy UOAcQQXyOBKlJt7UcTOxfM8 eD3pfpSbdKdf4Ws8IyTDgXW K0YZzlI4DqtKZeAsbYL9f4N RiuH1As Z6vxNZGWS4PmiBtewIdllXJ 1YPEWF9tKQYixjQYwSUE1Lx 6Sh4AkedKfLHH7Ov8DFUJwP K62ZU1q ELMYF5zzMYCidedrJVKmIe1 CDUvEqOD7pDHsCCHmHs8Bae aSlUS2oYO2RCCIAq3UAC0bg 2JqCjgg ZOCbKbiNXPlSF8W9sAXnJ1T uzeKBQ0P8EsD5vUDuG1KqaI ZJjPUmBl7OTHNgTy6opMOjJ XJpYWxN ZYdsSsjns1WLlMUcXJTaVt7 AMKX8W7ecblWnVdJQN1NuZ4 2lyH8wYD9JxQ3KvkDtNY9ds 2RpbmcK W7BiwbNREQGtsocuaT1lUHn qZSMXIa4YaOE5nSTmDbWlTg ggMCAwIDAgMCAwIDAgMCAwI DAgMCAw QIY7VHSkSkFUFqw6AAT2MOS 4SVCxUDU4PBB1MyS5WNSnQK U4ICW0WjJ9RPIfUYA1FWY7J lK0YVCd Hjg0LZDeLCUyIwDvRJIbBUL 6WcJ5ZibhQvEjKOawJtJ3Vy ziPdZwCZg7VDL5XfAnQeb9Q DAgNjY3 PAB9UvX8UjINWvTeRYl0ENC 3XgodMRX8MuReDqJ7DOElKC Z6WwXbDcQ5JGg5WFIvHNNrE CAwIDAg MEmnQFOeCZJ4KTTiFYY9DII uLOZ4IJTjIQF5ZKK5VAX2NS WdQIA5UPZtEqNmTYLsZFJvR jIgODMz UzR8GcH3CIZeIMD5ORZnQvS nKRVuOXEoSsbbJAX0BWMoCB K1YbXnRYE8AKQsQn8AZJ9vf 2JqCjkg HLNgRooZHPrMF7C3tROlP4K yjjXPPTVwskmxgD7oAv8Lq4 10IaSrJSOiVWQvQBvpWw7aV M1TFm3L kADrcuLvQpagRx1eiWGFk8s yBd42CgwfRCE2UxHsDXQlIF UlLUBuPa1RcMOrdZ4fH3bft GggMjc4 Lw4BcEKeCIY9NMawN4NykSN qXteUU7i8ZCttJ4QpL1ntIB HPU8CrwZgghCekcHQ6NEJWF 1hIZWln vIOpTWE1Nd3Bp4EepcBrMSL 8Ze3LFOUiBG00OS5fQGLCG7 xuFSIvrcjmBLQqUa3ZCKyRn NP5iDDe HQVfMh8TazcKxVB5fEY6Xnx MMn4ZVY1th1ZdTxOvPTBzc6 AiRls1Wz3FoHIyHO3Ti364S u4RqXI4 vMTeTU5McySyYTaeFFlpMeK eIVByqkWbY2FatLMuKQGpoV LHQUjpVtjlu0ANqBLcHEDpK v1PDOB2 M9kvtoVtSqJNT8CtP31rgW8 kFN5CiH5MhlDpMW4os9Vxdj aWF5OcqnCJBQFbrcnwpI1zC DkgMCBS Wr0ObZX4vTXyCjKsIfzcAYY qXZQ3MlPuTFLcTYNwNPItYm AzMzMgMCAwIDAgMAoyNzggM CAwIDAg MCAwIDAgMCAwIDAgMCAwIDM uZuJhOLQoUYfjASGlYPM3Qj YbYxXcWDgxLdR8KuOrOeU7M DYxMSA3 BruaGjXfAHS2ZCYtQDPpYoA vDTulJdo7AjIjMeh1OGM1Me P9LvclWfHiEMW7IlC7VFDiH CAwIDk0 NCAwIDAgNjExIDAgMCAwCjA dUHUzNBE4VuC1DAFaKUF2HJ JlTEG8HNAnSmRhBWWlNRI5C TEgMjc4 BVLbJZP1WYT4GQM2FRlRWbQ yBCTaSOX0VNWmNKZxORmuVV L7KSEtDnK9JHNzPQV8CKUrU GX6KCD6 Nl0+PgplbmRvYmoKMTEgMCB qZyhDOYrIW0vzuda0qIZfPV IoHEvwORUyU6LtGVY8ULOUY 0ZpbHRl fsUwG1JmRACsQSTro1PaAUo +HsaovGWmGV7YwVzsWC9pDS UVP/e+y97lNLHPyfc42FvNB CGSgIQP l8BcU2PsS6ZA4KXAhnnRwuX gCEJpKFBwE+xSoh0/gKCigE KuTmAUhIcRLS9yWSs9r6GiY +PoWOKM QnHgR0M+7avTXdwH9R/9o9O +k9/73XvOeeeec+51h48VDR BuRvBDbZGaLcS8viLhSFQOh UAf2O4H cup9qaECoWXCLTf9FHD0+uO ytndgnfmXlAU59UIJUr8fsZ g3o1XWES1SXDQ5F7mWGuys5 bBizbon HqVnXVlJFk2xL4mBWLLfyal PFN+G/xmMBucbxTqs5pIvQG +dncZmEgrWU6uhCo8UVlZfb +5cily+ IBLm03/bceFfWiZCaliAb+a S9DpTssI+QcjJpjD7znYzzv /iHZEz3aD59T54jJgX28JPc Ivpr+wg /reWwNCg9HfcxVUhBNcMjTh h3ujeoO+xzUg2Eb/kZ/gZyz gHmsjAO1g9i0RDdShoL35Vw 9hp+Gyg 4vIzvOiwFLzhKb74uK6MgOU PWC+gdNnI7fHLbjd1Tr4i3T k0Z0iTNffLdEBJEk0a5ETR7 idgu2HD XhKA9qZPkLDsyX8GpC1u8Px VfgSl8E5h7XcIfMukcasV6v SlEVEYceyCBFRoRvsuzcPI1 fTIcFRb uhP8v4ZtAEN2zlLgw2NtF5M FZ/OBdOWRgpXYLpl0knSisj 0FOR1Q0mqnLlrq7bhFLC5jp SofxqhE diM3XO7axUmVIixvj0eleaH +OkRROkm/WEstb6FSlyJ71l FmXVPYVLYQEoSsYpvYVsxHy 3Irmy9Z MpzJ4Frg+6TPPeP7POJ7V9a t/Bl+jL/Lf80/4T38S/61QI SOGVvYY6iLA6Sc4ujoXewZ5 6D61pjs xxKTDGumEuVk+PW5VfGlLUS ctsAbv3HFQf7iNCLJQwbyYm vWpGg6WibWWkiwjYqTquhth 6JMh1Hm kIHBSkyZyopZCVsACbJFLMR VoYAa5DINJ2SB6SE2ROO5QS mQXWR/IU8bR8whoso6sGnZ9 1fB5/GF fDl/ij/Nn+SwZGd81sP2Z49 JNfbwPtQYIyQKKcJowSeUQO SWx2O0gnlxHwfgXXU3nE1w2 t1xuxgM gGT5jeO2qM+wklwSpHRpsjQ O9yD0MS7NEsD91IF5Go7ua0 7IjbggB5n1y/vkTvkj+ZqSo qQqYyET pQsQKRFNNabyZwwZf0Dhymu JTD2Bmad9PFpWTzzvvv1mo9 /CS5TjpXH1aL2oeQHMW5611 6mi5skH wolC2CM4dFpU8us4KDSPAoc PH3ZC1InMRqIEIMdCJola3N aPFK1lK8W25RCEWpuCR2E9I N2eT/6M fMhDu9ROi0CzIRN72ZJMZZX mSagNr5DgbFxE1imsr02Ogs ne0LZMCbkiuH9n2MYpQBA11 87yMaxF ii32JdKOZclDafgf6Ed5sY0 6qTIipdfCKLl3nJPZ6xZNCE fQK5eWvdUjJ3/naGkuaItF7 GzPf0i5 pPvYVy8j9mr95wuwa32rWwA vIXolLce3XnKVVWQenHxCQq h2RHIi5rkog7XN0JpWm0T5i HOB66Oc QAdwBDgIvAzsA/FIk0GAWFv SCxl1Re7hn+9s6tILW3a4fJ JToymwP9NMi2m287O8pbFuD Rv2YuX1 xy9HLcU1sJyJe4YJ2H6tDMS FaEn4Sj8D0dY3bxkDwmYVwT gXW+st (more content not included)... Normal [facility] Lab Reportson 04-08-2022 Lab Reports [id number]#[id number] D:127 Normal [facility] Operative Reporton Operative Report [id number]#[id number] D:127 Normal [facility] Blood Urea Nitrogenon 2022 Urea nitrogen [Mass/Vol] 30 mg/dL High 12-06 [facility] Comment on above: Performed By: #### C REAT, BUN #### [address] Creatinineon 04-07-2022 Creatinine [Mass/Vol] 1.21 mg/dL High 0.44-1.03 [facility] Comment on above: Performed By: #### C REAT, BUN #### [address] Creatinine Clr Calc Pharmacy 46.76 [facility] Comment on above: Result Comment: PERF ORMED BY: [place] [address] PATHOLOGIST WILLOW WORKER AIRAM ROMEO M.D. Performed By: #### C REAT, BUN #### [address] Estimated GFR ( Laura 53 [facility] Comment on above: Result Comment: GFR estimated reference range: According to KDOQI guidelines, <60 ml/min/1.73m2 is sufficient to diagnose a patient with chronic kidney disease. Performed By: #### C REAT, BUN #### [place] [address] [place] Estimated GFR (Non- Am 44 [facility] Comment on above: Performed By: #### C REAT, BUN #### [address] Creatinine and Glomerular fi ltration rate.predicted panel (S/P/Bld)Ordered By: Miguel Membreno on 04-07-2022 Creatinine [Mass/Vol] 1.21 mg/dL 0.44-1.03 [facility] Estimated glomerular filtrat ion rate (GFR) non- AmericanOrdered By: Miguel Membreno on 04-07-2022 GFR/1.73 sq M.predicted among non-blacks MDRD (S/P/Bld) [Vol rate/Area] 44 mL/Min [facility] No Panel InformationOrdered By: Miguel Membreno on 04-07-2022 Estimated GFR () 53 mL/Min [facility] Comment on above: GFR estimated refere nce range: According to KDOQI guidelines, <60 ml/min/1.73m2 is sufficient to diagnose a patient with chronic kidney disease. Pharmacy Creatinine Clearance (Chem 46.76 [facility] Serum or plasma urea nitroge n measurement (mass/volume)Ordered By: Miguel Membreno on 04-07-2022 Urea nitrogen [Mass/Vol] 30 mg/dL 12-06 [facility] Coding Summary.on 04-03-2022 Coding Summary. CD:[id number] Gh0 bWw+PGhlYWQ+LS1JFCBpD30 cqBQqwK8ZJ5iBYY8UNNUBXJ DJEO2OZK1laSA4PPbrK0Vgq iAv SlykjGLcAW18PAb9DYB5sAi fEGrtxS6otYUmF4u5ViYsNE 75xS51HTtzVPDuWlM1OpVep jsgbWFy M2uaApHmjZJqHad+PHRhYmx lIHdpZHRoPScxMDAlJyBzdH pjYX7nGj7zRZVvELOtiWngp HNlOiBj e8gwYPCwWHchJH2suEcvM3J qvNE9VIPrq5o9Et21pYN+PH FtVKQ7dGqxUYrvq165CkCry 4opMNZ7 fOMbASbwKAR2K98wy9D3FQT xQNRqYOG7mKU8fL6tjDomqv hqR7RpzHGnJhD8HNE6vFPsv P9rxHcw utxtiH9wGmy+Y36HMR1GWQS EHD7BOxq0I9YcWvymuGL+PC 41FWXdNZ14mJQmnCEju6yys Cz1WxUd HXEvJXF2pNclFPktl2BbBGY uI87edPXgb7J3HTDnoJjakE OfBkHbhHW4zF9kPFxcygjbu 2hvdzsn Naqop6fohy86nJ57L59pNZs wZFVoXED5OJOuPFYgkXgwxh 5tzQ8fRx2+ZDauq2hfy1sbe Ce8NmIq HJHdthPwpVvrOJT8s6NgXf5 5L3RxpNcqh7JmVsv8ib01hY Ohq0W9yHI9XQgxCVBxtN4mY WxlZnQ6 INBuFsDweN62qZAtLHdhHe6 ueJpoxHzkYY0dIUVahghgUY AjpD2tVJAqxDCcnGdmXN2wW TBpbjtm t278LpTkEYJ0KCUjcRTzO8F mdW2yTgIuYEUnCWHkN4QgiN WoYIlvG135RAzpHkL8ZTLox uEwX9Ry NFRuiXgxStY3p5P3Os4Ui3N uxdpxRDL3VTzqXYXzRcO3Or UnYfG2O8JmMfe0GQVqhCeoA D5lE2Ch EODusmdygsynvHV9ACAhWYF hoR24pXZtQLtpVk3mr4M8l9 54NRGlHKRqmP76Gz5vtAygS TBwdCBU gD6yisgnx6rlxsgkLmWcSMY lNVz0NZf2CLOmfWceTrLhHB F6YfP1KCV6zRAlmY0rjOvxh nlxdW6x Oyc+I38goW2jNJZ8XPS8ygb zCGGgatUiEU02VE87Q4HnKy wvdGFibGU+PGRpdiBzdHlsZ L9yAlMe b9tbc0CcRLptP9NcDPVlCAs sQvs7YYPmOAM0iLR2nT6rQM BcRHpfj2P1gDL8M4WelcYyk b4qz9oo KPDgGNspF78blJNlr5D0TLP dhHJ4GDEfvNpxWyPraX17Gy c+OQJfzLvku1SbIqgvz4rjv 8waaYq1 OnKzCAMkeqVsdTpqDPF4a3R wDj48Z33sSEftOSOrOWFgXA KjDNWnkAxohx5qwR0fGh2+P GNvbCB3 vSO3eX2pPGKaTuJ5AWucT28 7RxDpyAPwLcygy6jcf6jozU w0AaOnAMIkqsQqtDcbUAU7l 6WmIp86 R94yILdiRTLuJJHpWKWbZPH uoDnwpx8smA9aRd2+PC9jb2 lgdr21bV15bYK+RFVySDY0w WxlPSdw IDXvuL1rGIiwUzQ2XIZcQjC mwL75gRMoKXffEw6xyTdfgN mhCC7vXNPngercd390NqBml 2xkIDEw wBFhKIcmLXO9G15kl8Y4PSR oEYFkHEL5wHT3hE6jyQgzkb ogbGVmdDsgdmVydGljYWwtY IxaA550 IHRvcDsnPlBhdGllbnQgTmF sVDp5V8IoCxe9ZLBjaTkmAY 9jqBOeOMjbQh6tuEivoMyaD J2eIRMd zijya017PvHdn2rgGKGooSE mZUsqSLB4F36fy2B8HZJgNY NiQPV5dLE6oZ1srDkvijrbv GVmdDsg vhDmkWxmJKpjZVfeZ047NDG glWtgAlNpkqFnKZMvfNQ7PM 14QD67kKExt3M8cKV7Q8GhQ GRpbmct wsirmHO6CPUcGXKehS02Ny4 zpRocOm8eWSWoSFH5UZHgiN RmB3YwgL2cWtWtRTZkOWExE 3RleHQt CExkH395VGplIzK0AWSsahI aD6GvXXNfhOqgGgN1t6Z4Lu 9IA3G7RS29AI29cNEoh8G7p BU8D0Eh OUSfaopxptdmbXH1IQZrIAX luQ78Wp4doMnxQk3qHWSlDP C8JNNojEPyR5UcpY3wEiFfY DAwMDAw B5BrsDYaJApdU710RRuyTrS 5QDNtprAaV4BaYRBllEugIo H4w0H9Rt4JXDx4GO29AW50v VHmi0C9 qIN7F4HzJEWrbwzfhgegeJV 0GDBsYKNlhK58Mz9beDusCn 3sQRNqXZT6SNJpaQQdT1Nig Q3hBqDa VRWuUGHvB2CkuGJnWBovX11 7XAajCfX4ITUksaOuX0GxKR AonPplJyU8j6K1Tx0RJIHuG J35SZM8 qRN0SM58WC36H9MwPszfaBI ibGU+PHRhYmxlIHdpZHRoPS mrWPGzMxNomFvcKY5wJt1yS GVyLWNv uKunuJQiEsEyv6vyJLUxXMl fUP0seZclD1YhoAD6PJMva7 i9Qp72T98pP1TayGG+PGNvb OZ9kWF8 qF1bZqEfGrB2KAvsR285IyR ktPPfTkqvt3cwc9rhhTk3Hi Z6BUBrcqWhxWqePXS8i8QtL n05X31h IHdpZHRoPSIxNSUiIHZhbGl mco2sxE4xLx6+EEUvgMV8rW X3gW8sGnCzUbG4OIpeB568Y nRvcCIv Sqgex5lqh1tmcIz5JzJyENG kmrCejVkdNIF3n6VjVb74B1 AewYptm2YnTcs8po29hPCsj 0M0pBI2 F3RyHJNuywccfKLntPhpZV3 mWFEqxdkhSGRtpP9mZLGqZ6 b4AsNxJpX6ZRpyA4PgmqY4K DEwcHQg ZKchPHH8T80gw9C1CKUvCMA iITW6oTQ8uO7zsGdbcyqqaE VmdDsgdmVydGljYWwtYWxpZ 246IHRv wSrgVNCjgR8oLRVdcZDnfSi mZD4aPWCakakxZoHXPD5ZP1 lTOqppT0GNNC4vGKmmzHV+P HRkIHN0 nYmvFAzqNUYcyL7nNAMoM2y 6YoXtMrF7IPufU9XzTXAmci ppCq09lS7hAyAdQxM0FWmrC 8LmbaR6 RFZbzDOuXHmsZZM8S33zs1B 0WORjBYJaAVL9tBZ3kY3toS lnbjogbGVmdDsgdmVydGljY WwtYWxp R296NCVfeFoeKyS3KlNaEkD 4MQS0C6OaHwy0IPDluUifAN 2xrFCnMNvfVd3ymXzaaDoyC M8zQWSz tfffJDAfjI9jRCVceKBesPs iVQ0bINVhdswfm828PbCcSU R8ZHPieQRdP7ZjjS5uBqNaH DAwMDAw R3ZdyFSoVGxjM417CYfuFxJ 5QMSfsvJcP5ZbGOWbfOsiTm E6y0X8Bj47JrBUUNNjtmdik GQ+PHRk SYX0vIyjDWptWHJumG7aXUQ eU2a0PlZyTmD7KWhuI8DxTD CygzqfMb20wU3aMfHeRzR2J WayU7Va qoL5OYAdoXYhQDqwABS8I63 yn3Z8ENZbCTUkZNM0uZD1uG 1hbGlnbjogbGVmdDsgdmVyd GljYWwt NDjyM311AMJpfFjaOwEekTQ sZTwvdGQ+REThBSH2qSoaBJ bsXGSjaF4bHVLyH0y5ZvUuQ yV2VDvs V5MsKJQqvhggBx38lK9rMxU bEbV6SKuwQ3PuxnU9QVQgyX IlENqbOOV4T37zq5X9OEZrT DAwMDA7 uSJ1vX1xjJscoqmxhLVumPc xfkQvnUghPOrmVSpeR156YY RzaWzsRz18hHDueFwawmH9E 3RkPjwv dHI+DK96JJWrNL40aGKvzPT fd8jhzVj2OmClWMBjRTM9dS jbMOpls6HcTEYwF20qrEZnm 0U8ABDi nUahzHBeOiBdcEZ3kD0sXRg rvvopa8iqedzoOsjnq0pioc 41bL62P12mAHauTUNdTCFmG CUiIHZh jYichk1crM8nKs6+PGNvbCB 2cTH1rQ2bAfXbDxZ0KAilZ7 45QrNzmZGhRmzut4zdo8qjc Vj4RuGp BLKdlqNvyAboXKH4t9LiGy9 1W50jDAsyZXVqWJVvRPIbGR LlyDyowc0nxL5rPq5+PC9jb 6dhmv07 qL15dYQ+PUVfBTD9pEirKIg sLRMxmK3eXWjrPwO1DSJfPb AgpD66kMWpUKnuQs4dtAvua AgbIC1p PUYxuctjo904ByTdy9csEPG igJMtFAfbWKF5R18kv3A7AL EdYYCnDSG7rTH0dL1wgBlav jogbGVm yPvqodFeeRxxGYvjWQtbT94 2SDNczTxpYgFkpGCzP4sznk HDZY8rQxmmyHP+JRNfNJM3e WxlPSdw CFOtgY2kRCDhV8e3VfThFnF 6QWfdD3AdmaP7LIWnuOHgIA CogMXNjV5ayrfye7hcmfgyU zAwMDAw LGx3KFj1DLAtdFaoTpWmQAI 9EvV0XPD4dWWejC8abLsysp rfdK4cVie+RklOOjwvdGQ+P HRkIHN0 zNpdSXylADXxyB6oRDMdK3p 3PqQhPoN2KZzgJ0TvuqM3LD IuzXWgTHNssAHCjU8mdevjt 2xvcjog SqHvKNWgKCb7FIv0DOLmzVe oJdQtDGQ3BbW1BUQ8xCXobU 5njDwxskkiyC3aWgb+TVJOO jwvdGQ+ EPWeGMD5eLutEDqfLMMwoS4 yHYKkT2l9FsUhOkA8PAvcW4 DaitO6DSPnxMSsIETgqQVYw U8zdnmt c9nkfwsrViNqTXQaVPy8VCu 5VSGicKhaAaAhEMH5HuX0DU M9cMMljE5kqRxhqfcyoR4uT yc+UGF5 PWJ7RU44XD31W1YfHbumgOU ibGU+PHRhYmxlIHdpZHRoPS rhWOUtBzLzkIlzZZ1gZs3tJ GVyLWNv bGxh (more content not included)... Normal [facility] Consultation Noteon 04-03-19 23 Consultation Note [id number]#1.00C D:127 Normal [facility] Lab Miscellaneous-LCon 04-03 Lab Miscellaneous COMMENT Invalid Interpretation Code [facility] Comment on above: Result Comment: Test Ordered: [id number] Anti-PR3 Antibodies Anti-PR3 Antibodies <0.2 units BN Reference Range: 0.0-0.9 Performed at: [address] [id number] PhD Armin Zaldivar Performed By: #### 1 [id number] #### [facility] [address] [place] [address] Result Comment: Test Ordered: [id number] Anti-MPO Antibodies Anti-MPO Antibodies <0.2 units BN Reference Range: 0.0-0.9 Performed at: [address] [id number] PhD Armin Zaldivar Performed By: #### 1 [id number] #### [facility] [address] [place] [address] C3on 04-02-2022 Complement C3 [Mass/Vol] 169 mg/dL High 82-167 [facility] Comment on above: Result Comment: Perf ormed at: [address] [id number] PhD Armin Zaldivar Performed By: #### 1 [id number], 26051096, [id number], 73125413, 0499518, 0615093, 7397297, [id number] ####[facility] [address] [place] [address] C4on 04-02-2022 Complement C4 [Mass/Vol] 29 mg/dL Invalid Interpretation Code 12-38 [facility] Comment on above: Result Comment: Perf ormed at: [address] [id number] PhD Armin Zaldivar Performed By: #### 1 [id number], 92699404, 519632469, 29230798, 2064571, 8820522, 6706413, 94131263 ####[facility] [address] [place] [address] Free K+L Lt Chains,Qn,Son Immunoglobulin light chains.kappa.free (S) [Mass/Vol] 47.1 mg/L High 3.3-19.4 [facility] Comment on above: Performed By: #### 1 [id number], 82047502, 677439475, 80870562, 9071627, 7914989, 8748480, 95819787 ####[facility] [address] [place] [address] Immunoglobulin light chains.kappa.free/I mmunoglobulin light chains.lambda.free (S) [Mass ratio] 1.59 Invalid Interpretation Code 0.26-1.65 [facility] Comment on above: Result Comment: Perf ormed at: [address] [id number] PhD Armin Zaldivar Performed By: #### 1 [id number], 14963584, 352435482, 48815091, 7580582, 8758920, 8092218, 14445343 ####[facility] [address] [place] [address] Immunoglobulin light chains.lambda.free [Mass/Vol] 29.7 mg/L High 5.7-26.3 [facility] Comment on above: Performed By: #### 1 2239596, 69493079, 195445051, 36857024, 5774504, 5380774, 8440069, 88280990 ####[facility] [address] [place] [address] Immunofixation, Urineon 03-16 Interpretation Immunofixation (U) [Interp] Comment Invalid Interpretation Code [facility] Comment on above: Result Comment: No m onoclonality detected. Performed at: [address] [id number] PhD Armin Zaldivar Performed By: #### 2 [id number] #### [facility] [address] [place] [address] [facility] (Inserted Image. [place] ble to display) April 02, [address] [place] [address] EVON CORCORAN 1950 Dear Evon, This is a reminder that you are due for an appointment with [facility]. Please contact our office at [phone] to schedule an appointment at your earliest convenience. Thank you, [facility] Normal [facility] Reminderson 04-02-2022 Reminders - From: Doretha Henry To: RANDI - Reminders/Recalls; Sent: 04/02/2022 09:12:50 EST Show up: 04/02/2022 09:13:00 EST Subject: Ambulatory Reminder Reminder/Recall 5 year colon recall cj 04/29/2022 first recall letter Normal [facility] Immunofixation Serumon 04-01 IgA [Mass/Vol] 474 mg/dL High 64-422 [facility] Comment on above: Performed By: #### 1 [id number], 99004477, 457600542, 11684589, 1750973, 2816680, 3350860, 71829284 ####[facility] [address] [place] [address] IgG [Mass/Vol] 999 mg/dL Invalid Interpretation Code 174-2180 [facility] Comment on above: Performed By: #### 1 3304376, 25168852, 794516415, 72872658, 9927508, 6226829, 4454500, 28081504 ####[facility] [address] [place] [address] IgM [Mass/Vol] 47 mg/dL Invalid Interpretation Code [facility] Comment on above: Result Comment: Perf ormed at: [facility] [address] [id number] PhD Armin Zaldivar Performed By: #### 1 8874620, 02455111, 233439409, 07022424, 7744265, 9939947, 5789104, 43177309 ####[facility] [address] [place] [address] Protein Fractions [Interp] Comment Invalid Interpretation Code [facility] Comment on above: Result Comment: No m onoclonality detected. Performed By: #### 1 9036289, 91448154, 593629101, 98386831, 9836186, 1521159, 3278273, 49269808 ####[facility] [address] [place] [address] PTH [place] 04-01-2022 Parathyrin.intact [Mass/Vol] 38 pg/mL Invalid Interpretation Code [facility] Comment on above: Result Comment: Perf ormed at: [facility] [address] [id number] PhD Armin Zaldivar Performed By: #### 1 [id number], [id number] #### [facility] [address] [place] [address] CHEMISTRYOrdered By: Genaro Rivera on 03-31-2022 Albumin Elph (U) [Mass fraction] mg/dL Invalid Interpretation Code [facility] Remisol Creatinine (U) [Mass/Vol] 95.7 mg/dL Invalid Interpretation Code FT Remisol U Prot/Creat Ratio [facility] Invalid Interpretation Code 0.00 - 200.00 [facility] Remisol CHEMISTRYOrdered By: SYSTEM SYSTEM on 03-31-2022 Albumin [Mass/Vol] 3.7 g/dL Normal 3.3 - 5.0 gm/dL F C Remisol Anion gap [Moles/Vol] 16 mmol/L Normal 6 - 16 mEq/L [facility] Calcium [Mass/Vol] 8.8 mg/dL Low 8.9 - 11.1 mg/dL [facility] Chloride [Moles/Vol] 103 mmol/L Normal 101 - 111 mmol/L [facility] CO2 [Moles/Vol] 25 mmol/L Normal 21 - 31 mmol/L [facility] Creatinine [Mass/Vol] 1.4 mg/dL High 0.5 - 1.3 mg/dL [facility] GFR/1.73 sq M.predicted among blacks MDRD (S/P/Bld) [Vol rate/Area] 45 mL/min/1.73 m2 Low >=59mL/min/1.73 m2 [facility] Chem S GFR/1.73 sq M.predicted among non-blacks MDRD (S/P/Bld) [Vol rate/Area] 37 mL/min/1.73 m2 Low >=59mL/min/1.73 m2 [facility] Chem S Glucose [Mass/Vol] 203 mg/dL High 55 - 199 mg/dL [facility] Remisol Magnesium [Mass/Vol] 2.1 mg/dL Normal 1.3 - 2.4 mg/dL [facility] Remisol Phosphate [Mass/Vol] 4.7 mg/dL High 1.9 - 4.6 mg/dL [facility] Remisol Potassium [Moles/Vol] 3.8 mmol/L Normal 3.5 - 5.3 mmol/L [facility] Remisol Sodium [Moles/Vol] 140 mmol/L Normal 135 - 145 mmol/L [facility] Remisol Urea nitrogen [Mass/Vol] 29 mg/dL High 5 - 21 mg/dL [facility] Remisol Urea nitrogen/Creatinine [Mass ratio] 21 mg/mg High 10 - 20 [facility] Remisol Consent for Treatmenton 03-16 Consent for Treatment [id number]#1.00C D:127 Normal [facility] HEMATOLOGYOrdered By: Chai Reid on 03-31-2022 Hematocrit (Bld) [Volume fraction] 39.5 % Normal 34.0 - 46.0 % [facility] HemeAutoSS Hemoglobin (Bld) [Mass/Vol] 12.6 g/dL Normal 12.0 - 16.0 gm/dL [facility] HemeAutoSS Hct & Hgbon 03-31-2022 Hematocrit (Bld) [Volume fraction] 39.5 % Normal 34.0-46.0 [facility] Comment on above: Performed By: #### 1 [id number], 11311970, 099673093, 72112497, 0186162, 2145022, 1731372, 62192541 ####[facility] [address] [place] [address] Hemoglobin (Bld) [Mass/Vol] 12.6 g/dL Normal 12.0-16.0 [facility] Comment on above: Performed By: #### 1 4212216, 47172127, 859996107, 54754015, 7159343, 0880458, 5313944, 55758773 ####[facility] [address] [place] [address] Lab Miscellaneous-LCon 03-31 Test Code 709427 Invalid Interpretation Code [facility] Comment on above: Performed By: #### 1 [id number] #### [facility] [address] [place] [address] Test Code 431066 Invalid Interpretation Code [facility] Comment on above: Performed By: #### 1 [id number], [id number] #### [facility] [address] [place] [address] Test Name PR3 AB Invalid Interpretation Code [facility] Comment on above: Performed By: #### 1 [id number] #### [facility] [address] [place] [address] Test Name MPO AB Invalid Interpretation Code [facility] Comment on above: Performed By: #### 1 [id number], [id number] #### [facility] [address] [place] [address] Magnesiumon 03-31-2022 Magnesium [Mass/Vol] 2.1 mg/dL Normal 1.3-2.4 [facility] Comment on above: Performed By: #### 1 8602256, 38281623, 389177181, 53259622, 3000999, 5257224, 9943548, 82178190 ####[facility] [address] [place] [address] Physician Orderon 03-31-2022 Physician Order [id number] D:127 Normal [facility] Reference Laboratory Testing Ordered By: Angelica Casas on 03-31-2022 Test Code 386245 Invalid Interpretation Code [facility] Test Code 220339 Invalid Interpretation Code [facility] Test Name MPO AB Invalid Interpretation Code [facility] Test Name PR3 AB Invalid Interpretation Code [facility] Renal Panelon 03-31-2022 Albumin [Mass/Vol] 3.7 g/dL Normal 3.3-5.0 [facility] Comment on above: Performed By: #### 1 [id number], 33013168, [id number], 18184279, 5505892, 5017508, 2876395, 06033092 ####[facility] [address] [place] [address] Anion gap [Moles/Vol] 16 mmol/L Normal 6-16 [facility] Comment on above: Performed By: #### 1 3573658, 02762116, 154443241, 70210935, 8180627, 6094589, 9398519, 40165653 ####[facility] [address] [place] [address] Calcium [Mass/Vol] 8.8 mg/dL Low 8.9-11.1 [facility] Comment on above: Performed By: #### 1 0051068, 92408888, 073856494, 17949953, 4633962, 0635497, 4820776, 17241438 ####[facility] [address] [place] [address] Chloride [Moles/Vol] 103 mmol/L Normal 101-111 [facility] Comment on above: Performed By: #### 1 5109262, 56470123, 176016626, 46463557, 8959503, 2709457, 6551536, 00287176 ####[facility] [address] [place] [address] CO2 [Moles/Vol] 25 mmol/L Normal 21-31 [facility] Comment on above: Performed By: #### 1 2441074, 32524616, 198954997, 80611107, 9176750, 3691205, 2214103, 61402637 ####[facility] [address] [place] [address] Creatinine [Mass/Vol] 1.4 mg/dL High 0.5-1.3 [facility] Comment on above: Performed By: #### 1 2103913, 27629707, 110929677, 50424821, 8492297, 8793542, 4055820, 53210180 ####[facility] [address] [place] [address] Glucose [Mass/Vol] 203 mg/dL High 55-199 [facility] Comment on above: Result Comment: If t his glucose result represents a fasting glucose, interpretation should refer to the following reference range: 55-99 mg/dL Performed By: #### 1 4371771, 02579813, 723104810, 91948840, 0832216, 9657870, 1119426, 79848849 ####[facility] [address] [place] [address] Phosphate [Mass/Vol] 4.7 mg/dL High 1.9-4.6 [facility] Comment on above: Performed By: #### 1 5964703, 16183629, 328539639, 03875360, 9695022, 6784292, 6865368, 73610506 ####[facility] [address] [place] [address] Potassium [Moles/Vol] 3.8 mmol/L Normal 3.5-5.3 [facility] Comment on above: Performed By: #### 1 0179141, 23976397, 622729715, 34938667, 2856056, 1395240, 1119383, 92415038 ####[facility] [address] [place] [address] Sodium [Moles/Vol] 140 mmol/L Normal 135-145 [facility] Comment on above: Performed By: #### 1 8555458, 65745129, 801976313, 88096533, 3627538, 3162691, 5653826, 88792095 ####[facility] [address] [place] [address] Urea nitrogen [Mass/Vol] 29 mg/dL High 5-21 [facility] Comment on above: Performed By: #### 1 6586113, 94374543, 829188835, 47648675, 7955960, 7426300, 7817514, 41215844 ####[facility] [address] [place] [address] Urea nitrogen/Creatinine [Mass ratio] 21 No Units High 10-20 [facility] Comment on above: Performed By: #### 1 0230992, 58530450, 898620009, 86248261, 6177252, 9889088, 2595119, 55432613 ####[facility] [address] [place] [address] U Protein/Creat Ratioon 03-16 Albumin Elph (U) [Mass fraction] <6.0 Invalid Interpretation Code [facility] Comment on above: Result Comment: The reference range and other method performance specifications have not been established for this test; results should be integrated into the clinical context for interpretation. Performed By: #### 2 [id number] #### [facility] [address] [place] [address] Creatinine (U) [Mass/Vol] 95.7 mg/dL Invalid Interpretation Code [facility] Comment on above: Result Comment: The reference range and other method performance specifications have not been established for this test; results should be integrated into the clinical context for interpretation. Performed By: #### 2 [id number] #### [facility] [address] [place] [address] U Prot/Creat Ratio [facility] Invalid Interpretation Code .00-200.00 [facility] Comment on above: Performed By: #### 2 [id number] #### [facility] [address] [place] [address] URINALYSISOrdered By: Elizabeth Rosas on 03-31-2022 Bilirubin Ql (U) Negative (03/31/22 7:43 AM) Normal Negative [facility] UA Auto SS Clarity (U) Clear (03/31/22 7:43 AM) Normal Clear [facility] UA Auto SS Color (U) Yellow (03/31/22 7:43 AM) Normal Yellow [facility] UA Auto SS Epithelial cells.squamous LM.HPF (Urine sed) [#/Area] 0-2 /HPF Normal 0-2/HPF [facility] UA Auto SS Glucose Test strip (U) [Mass/Vol] 3+ *ABN* (03/31/22 7:43 AM) Invalid Interpretation Code Negative [facility] UA Auto SS Hemoglobin Ql (U) Negative (03/31/22 7:43 AM) Normal Negative [facility] UA Auto SS Ketones (U) [Mass/Vol] Negative (1/16/23 7:43 AM) Normal Negative [facility] UA Auto SS Eakly.plasma/Lith ium.RBC (Bld) [Mass ratio] 0-3 /HPF Normal 0-3/HPF [facility] UA Auto SS Nitrite Ql (U) Negative (03/31/22 7:43 AM) Normal Negative [facility] UA Auto SS pH (U) 5.5 *NA* (03/31/22 7:43 AM) Invalid Interpretation Code 5.0 - 9.0 [facility] UA Auto SS Protein (U) [Mass/Vol] Negative (03/31/22 7:43 AM) Normal Negative [facility] UA Auto SS Specific gravity (U) [Rel density] 1.015 *NA* (03/31/22 7:43 AM) Invalid Interpretation Code 1.005 - 1.030 [facility] UA Auto SS UA Spec Desc Clean Catch (03/31/22 7:43 AM) Normal FT UA Auto SS Urobilinogen Qn (U) 0.5857345 {Donell'U}/dL Normal 0.0 - 1.0 EU/dL [facility] UA Auto SS WBC Auto Ql (U) Negative (03/31/22 7:43 AM) Normal Negative [facility] UA Auto SS WBC LM.HPF (Urine sed) [#/Area] 0-5 /HPF Normal 0-5/HPF [facility] UA Auto SS US ankle/arm indiceson 03-31 US ankle/arm indices [facility] [place] [address] Ultrasound Report Signed Patient: Evon Corcoran MR#: [id number] : 1950 Acct:[id number] Age/Sex: 71 / F ADM Date: 03/31/22 Loc: [facility] Room: Type: [facility] Attending Dr: Miguel Membreno MD Ordering Provider: Miguel Membreno MD Date of Service: 03/31/22 US/US ankle/arm indices: I70.213 Copies to: Miguel Membreno MD LOWER EXTREMITY SEGMENTAL ARTERIAL DOPSCAN (PVR) INDICATION: Peripheral vascular occlusive disease with claudication PROCEDURE: Right arm blood pressure is 175 , left is 156 . Pressures at the right ankle are 77 using the posterior tibial artery, and 80 using the dorsalis pedis artery with ankle-brachial index of 0.35,0.44 0.40,0.46 . Pressures at the left ankle are 61 using the posterior tibial artery, and 70 with ankle-brachial index of 0.35,0.44 0.40 . Wave forms by plethysmography are moderately blunted US/US ankle/arm indices IMPRESSION: Severe bilateral peripheral vascular occlusive disease at rest Impression dictated by: Miguel Membreno M.D.03/31/2022 3:38 PM [facility] Tech: Christy Chiqui Transcribed By: RICH 03/31/221537 Dictated By: Miguel Membreno MD 03/31/221536 Signed By: 03/31/221537 [facility] Urinalysison 03-31-2022 Bilirubin Ql (U) Negative Normal Negative [facility] Comment on above: Performed By: #### 2 [id number] #### [facility] [address] [place] [address] Clarity (U) CLEAR Normal Clear [facility] Comment on above: Performed By: #### 2 [id number] #### [facility] [address] [place] [address] Color (U) YELLOW Normal Yellow [facility] Comment on above: Performed By: #### 2 [id number] #### [facility] [address] [place] [address] Epithelial cells.squamous LM.HPF (Urine sed) [#/Area] 0-2 Normal 0-2 [facility] Comment on above: Performed By: #### 2 [id number] #### [facility] [address] [place] [address] Glucose Test strip (U) [Mass/Vol] 3+ Abnormal Negative [facility] Comment on above: Performed By: #### 2 [id number] #### [facility] [address] [place] [address] Hemoglobin Ql (U) Negative Normal Negative [facility] Comment on above: Performed By: #### 2 [id number] #### [facility] [address] [place] [address] Ketones (U) [Mass/Vol] Negative Normal Negative [facility] Comment on above: Performed By: #### 2 [id number] #### [facility] [address] [place] [address] Eakly.plasma/Lith ium.RBC (Bld) [Mass ratio] 0-3 Normal 0-3 [facility] Comment on above: Performed By: #### 2 [id number] #### [facility] [address] [place] [address] Nitrite Ql (U) Negative Normal Negative [facility] Comment on above: Performed By: #### 2 [id number] #### [facility] [address] [place] [address] pH (U) 5.5 [pH] Invalid Interpretation Code 5.0-9.0 [facility] Comment on above: Performed By: #### 2 [id number] #### [facility] [address] [place] [address] Protein (U) [Mass/Vol] Negative Normal Negative [facility] Comment on above: Performed By: #### 2 [id number] #### [facility] [address] [place] [address] Specific gravity (U) [Rel density] 1.015 Invalid Interpretation Code 1.005-1.030 [facility] Comment on above: Performed By: #### 2 [id number] #### [facility] [address] [place] [address] Type of Urine collection method Clean Catch Normal [facility] Comment on above: Performed By: #### 2 [id number] #### [facility] [address] [place] [address] Urobilinogen Qn (U) 0.2 {Donell'U}/dL Normal 0.0-1.0 [facility] Comment on above: Performed By: #### 2 [id number] #### [facility] [address] [place] [address] WBC Auto Ql (U) Negative Normal Negative [facility] Comment on above: Performed By: #### 2 [id number] #### [facility] [address] [place] [address] WBC LM.HPF (Urine sed) [#/Area] 0-5 Normal 0-5 [facility] Comment on above: Performed By: #### 2 [id number] #### [facility] [address] [place] [address] eGFRon 03-31-2022 GFR/1.73 sq M.predicted among blacks MDRD (S/P/Bld) [Vol rate/Area] 45 mL/min/1.73 m2 Low >=59 [facility] Comment on above: Order Comment: Order added by Discern Expert. Result Comment: eGFR is race adjusted. AA=. Performed By: #### 1 [id number], [id number], [id number], [id number], [id number] ####[facility] [address] [place] [address] GFR/1.73 sq M.predicted among non-blacks MDRD (S/P/Bld) [Vol rate/Area] 37 mL/min/1.73 m2 Low >=59 [facility] Comment on above: Order Comment: Order added by Discern Expert. Result Comment: Geodetic Engineer jin kidney disease could be indicated at eGFR's of less than 60 mL/min/1.73m2. Kidney failure is indicated at less than 15 mL/min/1.73m2. Performed By: #### 1 [id number], [id number], [id number], [id number], [id number], [id number], [id number], [id number] ####[facility] [address] [place] [address] Diabetic Self Management Edu cationon 03-26-2022 Diabetic Self Management Education [id number] CD:127 Normal [facility] CHEMISTRYOrdered By: Jenni Lazaro on 02-12-2022 HbA1c (Bld) [Mass fraction] 9.3 % High <=5.9% [facility] Office Visit (Cardiology)on 01-15-2022 Follow-up visit Diagnoses/Problems Assessed Atherosclerosis of [place] coronary artery of [place] heart without angina pectoris (414.01) (I25.10) Status post coronary angioplasty (V45.82) (Z98.61) Essential hypertension (401.9) (I10) Hyperlipidemia (272.4) (E78.5) Chronic kidney disease, stage 3 (585.3) (N18.30) Never a smoker Class 1 obesity with body mass index (BMI) of 34.0 to 34.9 in adult (278.00,V85.34) (E66.9,Z68.34) High risk medication use (V58.69) (Z79.899) Sleep apnea (780.57) (G47.30) PVD (peripheral vascular disease) (443.9) (I73.9) Deep vein thrombosis (453.40) (I82.409) Orders Atherosclerosis of [place] coronary artery of [place] heart without angina pectoris Renew: Aspirin EC 81 MG Oral Tablet Delayed Release; TAKE ONE TABLET THURSDAY AND THURSDAY Class 1 obesity with body mass index (BMI) of 34.0 to 34.9 in adult Healthy Weight Tips; Status:Complete - Retrospective Authorization; Done: 15Jan2022 Some eating tips that can help you lose weight.; Status:Complete - Retrospective Authorization; Done: 15Jan2022 Essential hypertension Renew: amLODIPine Besylate 5 MG Oral Tablet (Norvasc); TAKE 1 TABLET DAILY SocHx: Never a smoker Tobacco Use Screening; Status:Complete; Done: 15Jan2022 Patient Instructions Please bring all medicines, vitamins, and herbal supplements with you when you come to the office. Prescriptions will not be filled unless you are compliant with your follow up appointments or have a follow up appointment scheduled as per instruction of your physician. Refills should be requested at the time of your visit. Follow up in 6-9 months Chief Complaint EVON CORCORAN is being seen for a 6-9 month follow-up of. Patient is in the office for follow-up for the problems noted below. Since her last visit she has had no cardiac events whatsoever. She has sleep apnea but unfortunately has not been using the CPAP machine, encouraged the patient to utilize it on a nightly basis to avoid possible atrial fibrillation. Her weight increased 6 pounds from last visit something that I brought her attention. She has had no need for nitroglycerin. Denies orthopnea PND or lower extremity edema. Her labs have been up-to-date and have been on target. ASSESSMENT AND PLAN: 1. Coronary artery disease with history of angioplasty in 2010 to the LAD and diagonal and again in July 2018 to the LAD for total occlusion with no disease of significance noted otherwise. Nuclear stress test October 2020 was normal 2. Obesity. Discussed with the patient the need to reduce calorie consumption and increase exercise to bring BMI closer to target 3. Dyslipidemia, currently on high intensity atorvastatin lipid profile is on target 4. History of DVT on Xarelto 10 mg daily without any bleeding complications. 5. Diabetes, managed by endocrinology in [place] [employer]. A1c remains above target 6. Hypertension completely under control. 7. High-risk medication with Xarelto, so far well-tolerated. Takes baby aspirin twice weekly 8. Stage III chronic kidney disease to be monitored closely 9. Recent diagnosis of intermittent claudications and PAD followed by vascular surgery Dr. Daniel in [place], she is currently going through walking exercise program Fariha Guidry MD, [facility] Current Meds Medication NameInstruction amLODIPine Besylate 5 MG Oral TabletTAKE 1 TABLET DAILY. Aspirin EC 81 MG Oral Tablet Delayed ReleaseTAKE ONE TABLET THURSDAY AND THURSDAY Chlorthalidone 25 MG Oral TabletTAKE 1 TABLET DAILY. CoQ10 100 MG Oral CapsuleTAKE 1 CAPSULE BY MOUTH TWICE A DAY Lipitor 20 MG Oral TabletTAKE 1 TABLET AT BEDTIME. Losartan Potassium 50 MG Oral Tablettake 1 tablet by mouth twice a day Lyumjev KwikPen 100 UNIT/ML Subcutaneous Solution Pen-injectorUSE DIRECTED Metoprolol Succinate ER 50 MG Oral Tablet Extended Release 24 Hourtake 1 tablet by mouth once daily Potassium Chloride 10 MEQ TBCRTAKE 1 TABLET DAILY. Tresiba SOLNUSE DIRECTED Xarelto 10 MG Oral TabletTake 1 tablet daily Allergies Medication Aldactazide Adverse Reaction; Diarrhea; Recorded By: Virgie France; 03/27/2021 12:10:05 AM Cardura Adverse Reaction; Diarrhea; Recorded By: Virgie France; 03/27/2021 12:10:05 AM Diovan Adverse Reaction; Diarrhea; Recorded By: Virgie France; 03/27/2021 12:10:05 AM Glucophage Adverse Reaction; Diarrhea; Recorded By: Virgie France; 03/27/2021 12:10:05 AM hydroCHLOROthiazide CAPS Adverse Reaction; Diarrhea; Recorded By: Virgie France; 03/27/2021 12:10:05 AM Zestril Adverse Reaction; Diarrhea; Recorded By: Virgie France; 03/27/2021 12:10:05 AM Social History Problems Alcohol use (V49.89) (Z78.9) Caffeine use (V49.89) (Z78.9) Never a smoker No illicit drug use Review of Systems Constitutional: not feeling tired. Cardiovascular: no intermittent leg claudication and as noted in HPI. Respiratory: no cough and no shortness of breath. Gastrointestinal: no change in bowel habits and no (more content not included)... Normal [employer] Tobacco Screening.on 022 Fall risk assessment a) No falls within the last year [facility] [employer] 600 DO Work Phone: Tobacco use status [facility] b) No [facility] [email or web address] 600 DO Work Phone: CHEMISTRYOrdered By: Devora IRELAND User on 01-06-2022 Glucose [Mass/Vol] 166 mg/dL High 55 - 99 mg/dL [facility] C POC Subsection POC Device SN [id number] Invalid Interpretation Code [facility] POC Subsection POC User ID [id number] Invalid Interpretation Code [facility] POC Subsection POC Username ROSSY ZEPEDA Invalid Interpretation Code [facility] P[facility] Subsection Glucose [Mass/Vol] 166 mg/dL High 55 - 99 mg/dL [facility] C POC Subsection Comment on above: Result Comment: Rain evert Meter POC Device SN [id number] Invalid Interpretation Code [facility] POC Subsection POC User ID [id number] Invalid Interpretation Code FT POC Subsection POC Username ROXANA MILES Invalid Interpretation Code FT POC Subsection CHEMISTRYOrdered By: Devora IRELAND User on 01-01-2022 Glucose [Mass/Vol] 185 mg/dL High 55 - 99 mg/dL [facility] C POC Subsection Comment on above: Result Comment: Rain evert Meter POC Device SN [id number] Invalid Interpretation Code [facility] POC Subsection POC User ID [id number] Invalid Interpretation Code [facility] POC Subsection POC Username ROXANA MILES Invalid Interpretation Code [facility] POC Subsection CHEMISTRYOrdered By: Chiquita Zapata on 09-24-2021 Albumin DL <= 20 mg/L (U) [Mass/Vol] 15.8 microgram/mL Normal 0.0 - 19.0 mcg/mL [facility] Remisol ALT No additional P-5'-P [Catalytic activity/Vol] 39 [iU]/d Normal 6 - 46 Int._Unit/L [facility] Chem S AST [Catalytic activity/Vol] 43 [iU]/d Normal 5 - 43 Int._Unit/L [facility] Chem S Bilirubin [Mass/Vol] 1.3 mg/dL High 0.0 - 1.1 mg/dL [facility] Chem S Bilirubin.direct [Mass/Vol] 0.4 mg/dL Normal 0.1 - 0.4 mg/dL [facility] Chem S Potassium [Moles/Vol] 4.9 mmol/L Normal 3.5 - 5.3 mmol/L [facility] Chem S CHEMISTRYOrdered By: SYSTEM SYSTEM on 09-24-2021 Albumin [Mass/Vol] 3.5 g/dL Normal 3.3 - 5.0 gm/dL F C Remisol Albumin/Globulin [Mass ratio] 0.9 {ratio} Low 1.1 - 2.2 [facility] Remisol ALP [Catalytic activity/Vol] 98 [iU]/d Normal 21 - 98 Int._Unit/L [facility] Remisol Anion gap [Moles/Vol] 11 mmol/L Normal 6 - 16 mEq/L [facility] Remisol Bilirubin.indirect [Mass or moles/Vol] 0.9 mg/dL Normal 0.1 - 0.9 mg/dL [facility] Remisol Calcium [Mass/Vol] 8.7 mg/dL Low 8.9 - 11.1 mg/dL [facility] Remisol Chloride [Moles/Vol] 101 mmol/L Normal 101 - 111 mmol/L [facility] Remisol Cholesterol [Mass/Vol] 123 mg/dL Normal 120 - 200 mg/dL [facility] Remisol Cholesterol in HDL [Mass/Vol] 44 mg/dL Invalid Interpretation Code [facility] Remisol Cholesterol in LDL [Mass/Vol] 58 mg/dL Normal <=129mg/dL [facility] Remisol Cholesterol in VLDL [Mass/Vol] 23 mg/dL Normal 7 - 40 mg/dL [facility] CO2 [Moles/Vol] 31 mmol/L Normal 21 - 31 mmol/L [facility] Creatinine [Mass/Vol] 1.2 mg/dL Normal 0.5 - 1.3 mg/dL [facility] Remisol GFR/1.73 sq M.predicted among blacks MDRD (S/P/Bld) [Vol rate/Area] 54 mL/min/1.73 m2 Low >=59mL/min/1.73 m2 [facility] Chem S GFR/1.73 sq M.predicted among non-blacks MDRD (S/P/Bld) [Vol rate/Area] 44 mL/min/1.73 m2 Low >=59mL/min/1.73 m2 [facility] Chem S Globulin (S) [Mass/Vol] 3.8 g/dL Normal 1.4 - 4.0 gm/dL [facility] Glucose [Mass/Vol] 153 mg/dL Normal 55 - 199 mg/dL [facility] Remisol Protein [Mass/Vol] 7.3 g/dL Normal 6.0 - 7.8 gm/dL F [facility] Remisol Sodium [Moles/Vol] 138 mmol/L Normal 135 - 145 mmol/L [facility] Triglyceride [Mass/Vol] 116 mg/dL Normal <=149mg/dL [facility] Urea nitrogen [Mass/Vol] 22 mg/dL High 5 - 21 mg/dL [facility] Urea nitrogen/Creatinine [Mass ratio] 18 mg/mg Normal 10 - 20 [facility] CHEMISTRYOrdered By: Kevin rick on 09-24-2021 HbA1c (Bld) [Mass fraction] 13.1 % High <=5.9% [facility] HEMATOLOGYOrdered By: SYSTEM SYSTEM on 09-24-2021 Basophils/100 WBC (Bld) 0.8 % Normal 0.0 - 2.0 % [facility] Basophils/Leukocyte s Auto (Bld) [Pure # fraction] 0.1 E9/L Normal 0.0 - 0.2 E9/L [facility] Eosinophils/100 WBC (Bld) 3.2 % Normal 0.0 - 8.0 % [facility] Eosinophils/Leukocy bev Auto (Bld) [Pure # fraction] 0.2 E9/L Normal 0.0 - 0.5 E9/L [facility] Lymphocytes/100 WBC (Bld) 17.3 % Normal 14.0 - 50.0 % [facility] Lymphocytes/Leukocy bev Auto (Bld) [Pure # fraction] 1.3 E9/L Normal 1.0 - 4.0 E9/L [facility] Monocytes/100 WBC (Bld) 6.0 % Normal 4.0 - 14.0 % [facility] Monocytes/Leukocyte s Auto (Bld) [Pure # fraction] 0.5 E9/L Normal 0.2 - 1.0 E9/L [facility] Neutrophils/100 WBC (Bld) 72.7 % Normal 36.0 - 75.0 % [facility] Neutrophils/Leukocy bev Auto (Bld) [Pure # fraction] 5.5 E9/L Normal 2.0 - 7.5 E9/L [facility] HEMATOLOGYOrdered By: Kevin titus on 09-24-2021 Erythrocyte distribution width (RBC) [Ratio] 13.4 % Normal 10.9 - 14.2 % [facility] Hematocrit (Bld) [Volume fraction] 37.7 % Normal 34.0 - 46.0 % [facility] Hemoglobin (Bld) [Mass/Vol] 12.6 g/dL Normal 12.0 - 16.0 gm/dL [facility] MCH (RBC) [Entitic mass] 29.3 pg Normal 27.0 - 34.0 pg [facility] MCHC (RBC) [Mass/Vol] 33.5 g/dL Normal 31.4 - 36.0 gm/dL [facility] MCV (RBC) [Entitic vol] 87.7 fL Normal 80.0 - 100.0 fL [facility] Platelet mean volume (Bld) [Entitic vol] 10.5 fL Normal 6.4 - 10.8 fL [facility] Platelets (Bld) [#/Vol] 249.0 E9/L Normal 150.0 - 500.0 E9/L [facility] RBC (Bld) [#/Vol] 4.3 E12/L Normal 4.3 - 5.9 E12/L [facility] HemeAutoSS WBC corrected for nucl RBC Auto (Bld) [#/Vol] 7.5 E9/L Normal 4.0 - 11.0 E9/L [facility] Falls Risk Screeningon 05-28 Fall risk assessment a) No falls within the last year [facility] 600 DO Work Phone: Heart Rate Regular [facility] 600 DO Work Phone: Office Visit (Cardiology)on 05-28-2021 Follow-up visit Diagnoses/Problems Assessed Essential hypertension (401.9) (I10) Patient Instructions Please bring all medicines, vitamins, and herbal supplements with you when you come to the office. Prescriptions will not be filled unless you are compliant with your follow up appointments or have a follow up appointment scheduled as per instruction of your physician. Refills should be requested at the time of your visit. Follow up in Jan a scheduled. Same meds Chief Complaint EVON CORCORAN is being seen for hypertension and BP Check. Patient is in the office for hypertension management after amlodipine 5 mg daily was added to medical regimen. The changes resulted in complete control of hypertension without any significant side effects. The patient will be left on present medical therapy with no changes and follow-up with me in the office as scheduled Active Problems Problems Essential hypertension (401.9) (I10) Assessed By: Jenelle Centeno; Last Assessed: 28 May 2021 Current Meds Medication NameInstruction amLODIPine Besylate 5 MG Oral TabletTAKE 1 TABLET DAILY. Aspirin EC 81 MG Oral Tablet Delayed ReleaseTAKE ONE TABLET THURSDAY AND THURSDAY Chlorthalidone 25 MG Oral TabletTAKE 1 TABLET DAILY. Co Q 10 100 MG Oral CapsuleTAKE 1 CAPSULE TWICE DAILY. Losartan Potassium 50 MG Oral TabletTAKE 1 TABLET TWICE DAILY. Metoprolol Succinate ER 50 MG Oral Tablet Extended Release 24 HourTAKE 1 TABLET Daily Potassium Chloride 10 MEQ TBCRTAKE 1 TABLET DAILY. Tresiba SOLNUSE DIRECTED Xarelto 10 MG Oral TabletTake 1 tablet daily Patient did not bring medications list or bottles. Updated verbally with patient. Allergies Medication Aldactazide Adverse Reaction; Diarrhea; Recorded By: Virgie France; 03/27/2021 12:10:05 AM Cardura Adverse Reaction; Diarrhea; Recorded By: Virgie France; 03/27/2021 12:10:05 AM Diovan Adverse Reaction; Diarrhea; Recorded By: Virgie France; 03/27/2021 12:10:05 AM Glucophage Adverse Reaction; Diarrhea; Recorded By: Virgie France; 03/27/2021 12:10:05 AM hydroCHLOROthiazide CAPS Adverse Reaction; Diarrhea; Recorded By: Virgie France; 03/27/2021 12:10:05 AM Zestril Adverse Reaction; Diarrhea; Recorded By: Virgie France; 03/27/2021 12:10:05 AM Vitals Vital Signs Recorded: 28May2021 12:25PMRecorded: 28May2021 12:21PM [id number], LUE, Eplljwj031, RUE, Sitting Iflahdxpp12, LUE, Aemzisf09, RUE, Sitting Heart Rate68, R Radial Pulse QualityRegular, R Radial Height5 ft 5 in Khklrm326 lb 3.2 oz BMI Dgnvtrywni06.98 kg/m2 BSA Calculated2 Fall Screeninga) No falls within the last year Signatures Electronically signed by : Fariha Guidry MD; May 28 2021 3:34PM EST (Author) Normal [employer] [facility] - Chemistry and C hemistry - challengeon 05-11-2021 Cholesterol [Mass/Vol] 96 mg/dL Normal <=129 [facility] VANCL DO Work Phone: Cholesterol in LDL [Mass/Vol] 39 mg/dL Normal 7-40 [facility] [employer] DO Work Phone: CO2 [Moles/Vol] 24 mmol/L Normal 21-31 [facility] [employer] [facility] [employer] DO Work Phone: Glucose [Mass/Vol] 217 mg/dL above high threshold 55-199 [facility] VANCL DO Work Phone: Comment on above: If this glucose resu lt represents a fasting glucose, interpretation should refer to the following reference range: 55-99 mg/dL Laboratory - Hematology and Cell countson 05-11-2021 Erythrocyte distribution width (RBC) [Ratio] 13.2 % Normal 10.9-14.2 [facility] feliz 250 DO Work Phone: Hematocrit (Bld) [Volume fraction] 39.5 % Normal 34.0-46.0 [facility] [employer] 250 DO Work Phone: Platelet mean volume (Bld) [Entitic vol] 11.0 fL above high threshold 6.4-10.8 [facility] [employer] fel[employer] 250 DO Work Phone: No Panel Informationon 05-11 14 {mEq/L} Normal 6-16 [facility] [employer] 250 DO Work Phone: 102 mmol/L Normal 101-111 [facility] [employer] 250 DO Work Phone: 4.2 mmol/L Normal 3.5-5.3 [facility] [employer] 250 DO Work Phone: 136 mmol/L Normal 135-145 [facility] [employer] 250 DO Work Phone: 8.9 mg/dL Normal 8.9-11.1 [facility] [employer] 250 DO Work Phone: 25 {No_Units} above high threshold 10-20 [facility] [employer] 250 DO Work Phone: [phone] 1.0 mg/dL Normal 0.5-1.3 [facility] [employer] 250 DO Work Phone: 25 mg/dL above high threshold 5-21 [facility] [employer] 250 DO Work Phone: >60 Normal >=59 [facility] [employer] 250 DO Work Phone: Comment on above: eGFR is race adjuste d. AA=. 55 {mL/min/1.73_m2} below low threshold >=59 [facility] [employer] feliz 250 DO Work Phone: Comment on above: Chronic kidney disea se could be indicated at eGFR's of less than 60 mL/min/1.73m2. Kidney failure is indicated at less than 15 mL/min/1.73m2. 54 {Int._Unit/L} above high threshold 6-46 [facility] 250 DO Work Phone: 67 {Int._Unit/L} above high threshold 5-43 [facility] 250 DO Work Phone: 197 mg/dL above high threshold <=149 [facility] 250 DO Work Phone: 49 mg/dL [facility] 250 DO Work Phone: Comment on above: HDL > or equal to 60 mg/dL: Low cardiovascular riskHDL < 40 mg/dL : High cardiovascular risk 193 mg/dL Normal 120-200 [facility] 250 DO Work Phone: 229.0 {E9/L} Normal 150.0-500.0 [facility] 250 DO Work Phone: Comment on above: Slide reviewed by BR Platelet count verified using smear estimate. 85.4 fL Normal 80.0-100.0 [facility] 250 DO Work Phone: 33.5 {gm/dL} Normal 31.4-36.0 [facility] 250 DO Work Phone: 28.7 pg Normal 27.0-34.0 [facility] 250 DO Work Phone: 13.2 {gm/dL} Normal 12.0-16.0 [facility] 250 DO Work Phone: 4.6 {E12/L} Normal 4.3-5.9 [facility] 250 DO Work Phone: 6.7 {E9/L} Normal 4.0-11.0 [facility] 250 DO Work Phone: Office Visit (Cardiology)on 05-08-2021 Follow-up visit Diagnoses/Problems Assessed Atherosclerosis of [place] coronary artery of [place] heart without angina pectoris (414.01) (I25.10) Chronic kidney disease, stage 3 (585.3) (N18.30) Deep vein thrombosis (453.40) (I82.409) Essential hypertension (401.9) (I10) High risk medication use (V58.69) (Z79.899) Hyperlipidemia (272.4) (E78.5) Status post coronary angioplasty (V45.82) (Z98.61) Never a smoker Class 1 obesity with body mass index (BMI) of 34.0 to 34.9 in adult (278.00,V85.34) (E66.9,Z68.34) Orders Atherosclerosis of [place] coronary artery of [place] heart without angina pectoris Renew: Aspirin EC 81 MG Oral Tablet Delayed Release; TAKE ONE TABLET THURSDAY AND THURSDAY Renew: Losartan Potassium 50 MG Oral Tablet; TAKE 1 TABLET TWICE DAILY Atherosclerosis of [place] coronary artery of [place] heart without angina pectoris, Chronic kidney disease, stage 3, High risk medication use Basic Metabolic Panel; Status:Active - Retrospective Authorization; Requested for:[id number]; Complete Blood Count; Status:Active - Retrospective Authorization; Requested for:08May2021; Atherosclerosis of [place] coronary artery of [place] heart without angina pectoris, Essential hypertension Renew: Metoprolol Succinate ER 50 MG Oral Tablet Extended Release 24 Hour; TAKE 1 TABLET Daily Atherosclerosis of [place] coronary artery of [place] heart without angina pectoris, Hyperlipidemia ALT - Alanine Aminotransferase, Serum; Status:Active - Retrospective Authorization; Requested for:08May2021; AST; Status:Active - Retrospective Authorization; Requested for:08May2021; Lipid Panel; Status:Active - Retrospective Authorization; Requested for:08May2021; Class 1 obesity with body mass index (BMI) of 34.0 to 34.9 in adult Healthy Weight Tips; Status:Complete - Retrospective Authorization; Done: 08May2021 Deep vein thrombosis Start: Xarelto 10 MG Oral Tablet; Take 1 tablet daily Essential hypertension Start: amLODIPine Besylate 5 MG Oral Tablet (Norvasc); TAKE 1 TABLET DAILY SocHx: Never a smoker Tobacco Use Screening; Status:Complete; Done: [id number] Unlinked Stop: Xarelto 20 MG Oral Tablet Patient Instructions By signing my name below, ISaloni Lpn,Tiffanie, attest that this documentation has been prepared under the direction and in the presence of /hmi. All medical record entries made by the Scribe were at my direction and personally dictated by me. I have reviewed the chart and agree that the record accurately reflects my personal performance of the history, physical exam, discussion and plan. Please bring all medicines, vitamins, and herbal supplements with you when you come to the office. Prescriptions will not be filled unless you are compliant with your follow up appointments or have a follow up appointment scheduled as per instruction of your physician. Refills should be requested at the time of your visit. Blood Pressure Follow Up In 2 weeks Follow up 6 months Chief Complaint EVON CORCORAN is being seen for a 6 month follow-up of. Patient is in the office for follow-up for the problems noted below. She reports no chest pain or dyspnea and I did review the stress test we did back in October 2020 for symptoms of chest pain which came back normal. Her weight has increased from last visit and her diabetes seems to be not completely under control and she is seeing her PCP next week to address this problem. Her examination is only remarkable for significant obesity. She has not had any blood work done recently as far as lipids and renal function. Paperwork was provided to do the testing. We discussed at length lifestyle changes that need to follow to reduce risk of recurrent cardiovascular disease and control risk factor for CAD. ASSESSMENT AND PLAN: 1. Coronary artery disease with history of angioplasty in 2010 to the LAD and diagonal and again in July 2018 to the LAD for total occlusion with no disease of significance noted otherwise. Nuclear stress test October 2020 was normal 2. Obesity. Discussed with the patient the need to reduce calorie consumption and increase exercise to bring BMI closer to target 3. Dyslipidemia, currently on high intensity atorvastatin lipid profile is ordered 4. History of DVT on Xarelto without any bleeding complications. Since the event was several years ago the patient Xarelto dose need to be reduced to the maintenance dose of 10 mg daily 5. Diabetes, managed by PCP. A1c should remain below 7. The patient is meeting with PCP next week to discuss elevated A1c which is not available to me at this time 6. Hypertension completely under control. 7. High-risk medication with Xarelto, so far well-tolerated. 8. Stage III chronic kidney disease to be monitored closely Fariha Guidry MD, [facility] Surgical History Problems History of Angioplasty History of Cholecystectomy History of Colonoscopy History of Hysterectomy Past Medical History Problems History of angina pectoris (V12. (more content not included)... Normal [facility] [employer] Tobacco Screening.on 022 Adult depression screening assessment No [facility] [id number] 250 DO Work Phone: Fall risk assessment a) No falls within the last year [facility] [employer] 250 DO Work Phone: Tobacco use status [facility] b) No [facility] [employer] 250 DO Work Phone: Vital Signs Date Time Vital Sign Value Performing Clinician Facility 03-20-2023 09:00-0500 Blood Pressure Location Christopher [employer] [facility] 03-20-2023 09:00-0500 Body temperature 98.42 [degF] Christopher [employer] [facility] 03-20-2023 09:00-0500 Diastolic blood pressure 80 mm[Hg] Christopher WELLS [facility] 03-20-2023 09:00-0500 Heart rate 70 /min Christopher WELLS [facility] 03-20-2023 09:00-0500 Respiratory rate 16 /min [facility] [employer] [facility] 03-20-2023 09:00-0500 SaO2% (BldA) [Mass fraction] 99 % Christopher LIBAN [facility] 03-20-2023 09:00-0500 Systolic blood pressure 132 mm[Hg] Christopher WELLS [facility] 03-04-2023 09:09-0500 Heart rate 80 /min Nicola Tapia [facility] 03-04-2023 09:09-0500 SaO2% (BldA) [Mass fraction] 99 % Nicola Tapia [facility] 03-04-2023 09:09-0500 Diastolic blood pressure 67 mm[Hg] Nicola Tapia [facility] 03-04-2023 09:09-0500 Mean blood pressure 91 mm[Hg] Nicola Tapia [facility] 03-04-2023 09:09-0500 Systolic blood pressure 138 mm[Hg] Nicola Tapia [facility] 03-04-2023 09:09-0500 Respiratory rate 16 /min Nicola Tapia [facility] 03-04-2023 09:04-0500 Diastolic blood pressure 96 mm[Hg] Nicola Tapia [facility] 03-04-2023 09:04-0500 Heart rate 84 /min Nicola Tapia [facility] 03-04-2023 09:04-0500 SaO2% (BldA) [Mass fraction] 98 % Nicola Tapia [facility] 03-04-2023 09:04-0500 Systolic blood pressure 165 mm[Hg] Nicola Tapia [facility] 03-04-2023 08:12-0500 Heart rate 82 /min Nicola Tapia [facility] 03-04-2023 08:12-0500 SaO2% (BldA) [Mass fraction] 97 % Nicola Tapia [facility] 03-04-2023 08:12-0500 Diastolic blood pressure 75 mm[Hg] Nicola Tapia [facility] 03-04-2023 08:12-0500 Mean blood pressure 103 mm[Hg] Nicola Tapia [facility] 03-04-2023 08:12-0500 Systolic blood pressure 159 mm[Hg] Nicola Tapia [facility] 03-04-2023 08:12-0500 Body temperature 98.42 [degF] Nicola Tapia [facility] 03-04-2023 08:11-0500 Respiratory rate 14 /min Nicola Tapia [facility] 03-03-2023 11:45-0500 Body height 165.1 cm Miguel Membreno Other [employer] Other 03-03-2023 11:45-0500 Body mass index (BMI) [Ratio] 33.28 kg/m2 Miguel Membreno Other [employer] Other 03-03-2023 11:45-0500 Body temperature 97.8 [degF] Miguel Membreno Other [employer] Other 03-03-2023 11:45-0500 Body weight 90.72 kg Miguel Martinezremelissa Other [employer] Other 03-03-2023 11:45-0500 Diastolic blood pressure 72 mm[Hg] Miguel Membreno Other [employer] Other 03-03-2023 11:45-0500 SaO2% (BldA) [Mass fraction] 96 % Miguel Membreno Other [employer] Other 03-03-2023 11:45-0500 Systolic blood pressure 124 mm[Hg] Miguel Martinezremelissa Other [employer] Other 02-18-2023 13:40-0500 Diastolic blood pressure 70 mm[Hg] DO Christopher Kaple Work Phone: [facility] 02-18-2023 13:40-0500 Heart rate 64 /min DO Christopher Kaple Work Phone: [facility] 02-18-2023 13:40-0500 Respiratory rate 16 /min DO Christopher Kaple Work Phone: [facility] 02-18-2023 13:40-0500 SaO2% (BldA) [Mass fraction] 98 % DO Christopher Kaple Work Phone: [facility] 02-18-2023 13:40-0500 Systolic blood pressure 169 mm[Hg] DO Christopher Kaple Work Phone: [facility] 02-18-2023 12:40-0500 Inhaled oxygen flow rate 1 L/min DO Christopher Kaple Work Phone: [facility] 02-18-2023 09:15-0500 Body height 165.1 cm DO Christopher Kaple Work Phone: [facility] 02-18-2023 09:15-0500 Body weight 97.52 kg DO Christopher Kaple Work Phone: [facility] 02-16-2023 13:23-0500 Heart rate 76 /min Gary Prashant [facility] 02-16-2023 13:23-0500 SaO2% (BldA) [Mass fraction] 96 % Gary Prashant [facility] 02-16-2023 13:22-0500 Diastolic blood pressure 80 mm[Hg] Gayr Prashant [facility] 02-16-2023 13:22-0500 Mean blood pressure 105 mm[Hg] Gary Prashant [facility] 02-16-2023 13:22-0500 Systolic blood pressure 155 mm[Hg] Gary Cerda [facility] 02-16-2023 13:22-0500 Body temperature 97.7 [degF] Gary Cerda [facility] 02-16-2023 13:21-0500 Respiratory rate 16 /min Gary Cerda [facility] 02-12-2023 09:03-0500 Body height 165.1 cm Fariha Guidry MD Work Phone: [facility] 02-12-2023 09:03-0500 Body mass index (BMI) [Ratio] 35.78 kg/m2 Fariha Guidry MD Work Phone: [facility] 02-12-2023 09:03-0500 Body weight 97.52 kg Fariha Guidry MD Work Phone: [facility] 02-12-2023 09:03-0500 Diastolic blood pressure 64 mm[Hg] Fariha Guidry MD Work Phone: [facility] 02-12-2023 09:03-0500 Heart rate 64 /min Fariha Guidry MD Work Phone: [facility] 02-12-2023 09:03-0500 Systolic blood pressure 120 mm[Hg] Fariha Guidry MD Work Phone: [facility] 01-26-2023 08:00-0500 Blood Pressure Location Christopher WELLS [facility] 01-26-2023 08:00-0500 Body temperature 98.6 [degF] Christopher WELLS [facility] 01-26-2023 08:00-0500 Diastolic blood pressure 72 mm[Hg] Christopher WELLS [facility] 01-26-2023 08:00-0500 Heart rate 65 /min Christopher WELLS [facility] 01-26-2023 08:00-0500 SaO2% (BldA) [Mass fraction] 96 % Christopher WELLS [facility] 01-26-2023 08:00-0500 Systolic blood pressure 124 mm[Hg] Christopher WELLS [facility] 01-06-2023 08:13-0400 Diastolic blood pressure 78 mm[Hg] Gary Prashant [facility] 01-06-2023 08:13-0400 Heart rate 69 /min Gary Prashant [facility] 01-06-2023 08:13-0400 Mean blood pressure 107 mm[Hg] Gary Prashant [facility] 01-06-2023 08:13-0400 Respiratory rate 14 /min Gary Prashant [facility] 01-06-2023 08:13-0400 Systolic blood pressure 166 mm[Hg] Gary Prashant [facility] 01-05-2023 09:15-0400 Body height 165.1 cm Miguel Membreno Other [employer] [facility] [employer] Other 01-05-2023 09:15-0400 Body mass index (BMI) [Ratio] 33.28 kg/m2 Miguel Membreno Other [employer] Other 01-05-2023 09:15-0400 Body temperature 96.3 [degF] Miguel Membreno Other [employer] Other 01-05-2023 09:15-0400 Body weight 90.72 kg Miguel Membreno Other [employer] Other 01-05-2023 09:15-0400 Diastolic blood pressure 62 mm[Hg] Miguel Buehrer Other [employer] Other 01-05-2023 09:15-0400 SaO2% (BldA) [Mass fraction] 97 % Miguel Buehrer Other [employer] Other 01-05-2023 09:15-0400 Systolic blood pressure 120 mm[Hg] Miguel Buehrer Other [employer] Other 11-04-2022 12:00-0400 Body height 165.1 cm Miguel Michellerer Other [employer] Other 11-04-2022 12:00-0400 Body mass index (BMI) [Ratio] 33.28 kg/m2 Miguel Buehrer Other [employer] Other 11-04-2022 12:00-0400 Body temperature 97.1 [degF] Miguel Darrionehrer Other [employer] Other 11-04-2022 12:00-0400 Body weight 90.72 kg Miguel Buehrer Other [employer] Other 11-04-2022 12:00-0400 Diastolic blood pressure 70 mm[Hg] Miguel Buehrer Other [employer] Other 11-04-2022 12:00-0400 SaO2% (BldA) [Mass fraction] 95 % Miguel Buehrer Other [employer] Other 11-04-2022 12:00-0400 Systolic blood pressure 140 mm[Hg] Miguel Membreno Other [employer] Other 11-03-2022 10:30-0400 Body height 165.1 cm Renetta Barahona Other [employer] Other 11-03-2022 10:30-0400 Body mass index (BMI) [Ratio] 33.28 kg/m2 Renetta Patmargaret Other [employer] Other 11-03-2022 10:30-0400 Body temperature 97.6 [degF] Renetta Patmargaret Other [employer] Other 11-03-2022 10:30-0400 Body weight 90.72 kg Renetta Patmargaret Other [employer] Other 11-03-2022 10:30-0400 Diastolic blood pressure 76 mm[Hg] Renetta Patmargaret Other [employer] Other 11-03-2022 10:30-0400 SaO2% (BldA) [Mass fraction] 98 % Renetta Patmargaret Other [employer] Other 11-03-2022 10:30-0400 Systolic blood pressure 116 mm[Hg] Renetta [place] Other [employer] Other 09-10-2022 08:12-0400 Blood Pressure Location Linda Solorio [facility] 09-10-2022 08:12-0400 Body temperature 96.8 [degF] Linda Solorio [facility] 09-10-2022 08:12-0400 Diastolic blood pressure 71 mm[Hg] Linda Osmin [facility] 09-10-2022 08:12-0400 Heart rate 56 /min Linda Osmin [facility] 09-10-2022 08:12-0400 Systolic blood pressure 118 mm[Hg] Linda Osmin [facility] 06-11-2022 09:10-0400 Diastolic blood pressure 70 mm[Hg] Linda Osmin [facility] 06-11-2022 09:10-0400 Mean blood pressure 92 mm[Hg] Linda Osmin [facility] 06-11-2022 09:10-0400 Systolic blood pressure 136 mm[Hg] Linda Osmin [facility] 06-11-2022 09:04-0400 Blood Pressure Location Linda Osmin [facility] 06-11-2022 09:04-0400 Body temperature 97.88 [degF] Linda Osmin [facility] 06-11-2022 09:04-0400 Diastolic blood pressure 75 mm[Hg] Linda Osmin [facility] 06-11-2022 09:04-0400 Heart rate 66 /min Linda Osmin [facility] 06-11-2022 09:04-0400 Systolic blood pressure 155 mm[Hg] Linda Osmin [facility] 05-05-2022 09:45-0500 Body height 165.1 cm Miguel Samuels [employer] Other 05-05-2022 09:45-0500 Body mass index (BMI) [Ratio] 33.28 kg/m2 Miguel Martinezrer Other [employer] Other 05-05-2022 09:45-0500 Body temperature 96.2 [degF] Miguel Martinezrer Other [employer] Other 05-05-2022 09:45-0500 Body weight 90.72 kg Miguel Martinezrer Other [employer] Other 05-05-2022 09:45-0500 Diastolic blood pressure 60 mm[Hg] Miguel Darrionsaudrer Other [employer] Other 05-05-2022 09:45-0500 SaO2% (BldA) [Mass fraction] 97 % Miguel Martinezrer Other [employer] Other 05-05-2022 09:45-0500 Systolic blood pressure 112 mm[Hg] Miguel Martinezrer Other [employer] Other 04-07-2022 20:00-0500 Diastolic blood pressure 80 mm[Hg] DO Christopher Kaple Work Phone: [facility] 04-07-2022 20:00-0500 Heart rate 70 /min DO Christopher Kaple Work Phone: [facility] 04-07-2022 20:00-0500 Respiratory rate 18 /min DO Christopher Kaple Work Phone: [facility] 04-07-2022 20:00-0500 SaO2% (BldA) [Mass fraction] 98 % DO Christopher Kaple Work Phone: [facility] 04-07-2022 20:00-0500 Systolic blood pressure 159 mm[Hg] DO Christopher Kaple Work Phone: [facility] 04-07-2022 17:05-0500 Body temperature 98.1 [degF] DO Christopher Kaple Work Phone: [facility] 04-07-2022 16:20-0500 Inhaled oxygen flow rate 2 L/min DO Christopher Kaple Work Phone: [facility] 04-07-2022 13:53-0500 Body height 165.1 cm DO Christopher Kaple Work Phone: [facility] 04-07-2022 13:53-0500 Body weight 90.71 kg DO Christopher Wells Work Phone: [facility] 03-31-2022 10:15-0500 Body height 165.1 cm Renetta Barahona Other [facility] [employer] Other 03-31-2022 10:15-0500 Body mass index (BMI) [Ratio] 33.28 kg/m2 Renetta Barahona Other [employer] Other 03-31-2022 10:15-0500 Body temperature 98.7 [degF] Renetta Barahona Other [employer] Other 03-31-2022 10:15-0500 Body weight 90.72 kg Renetta Barahona Other [employer] Other 03-31-2022 10:15-0500 Diastolic blood pressure 82 mm[Hg] Renetta Barahona Other [employer] Other 03-31-2022 10:15-0500 SaO2% (BldA) [Mass fraction] 98 % Renetta Pattino Other [employer] Other 03-31-2022 10:15-0500 Systolic blood pressure 136 mm[Hg] Renetta Patmargaret Other [employer] Other 01-27-2022 12:00-0500 Body height 165.1 cm Miguel Martinezrer Other [employer] Other 01-27-2022 12:00-0500 Body mass index (BMI) [Ratio] 33.28 kg/m2 Miguel Maierehrer Other [employer] Other 01-27-2022 12:00-0500 Body temperature 97.7 [degF] Miguel Martinezrer Other [employer] Other 01-27-2022 12:00-0500 Body weight 90.72 kg Miguel Maierehrer Other [employer] Other 01-27-2022 12:00-0500 Diastolic blood pressure 70 mm[Hg] Miguel Martinezrer Other [employer] Other 01-27-2022 12:00-0500 SaO2% (BldA) [Mass fraction] 98 % Miguel Buehrer Other [employer] Other 01-27-2022 12:00-0500 Systolic blood pressure 142 mm[Hg] Miguel Buehrer Other [employer] Other 01-15-2022 10:29-0400 Body height 165.1 cm Christopher Wells Work Phone: [place] [address] DO Work Phone: 01-15-2022 10:29-0400 Body mass index (BMI) [Ratio] 34.95 kg/m2 Christopher Wells Work Phone: [facility] [employer] 600 DO Work Phone: 01-15-2022 10:29-0400 Body surface area Derived from formula 2.02 m2 Christopher Wells Work Phone: [facility] [employer] 600 DO Work Phone: 01-15-2022 10:29-0400 Body weight 95.26 kg Christopher Wells Work Phone: [facility] [employer] 600 DO Work Phone: 01-15-2022 10:29-0400 Diastolic blood pressure 60 mm[Hg] Christopher Wells Work Phone: [facility] [employer] 600 DO Work Phone: 01-15-2022 10:29-0400 Heart rate 68 /min Christopher Wells Work Phone: [facility] [employer] 600 DO Work Phone: 01-15-2022 10:29-0400 Systolic blood pressure 116 mm[Hg] [facility] Work Phone: 11-28-2021 15:19-0400 Blood Pressure Location Charis Fredy [facility] 11-28-2021 15:19-0400 Diastolic blood pressure 69 mm[Hg] Charis Daniel [facility] 11-28-2021 15:19-0400 Heart rate 61 /min Charis Daniel [facility] 11-28-2021 15:19-0400 Respiratory rate 18 /min Charis Daniel [facility] 11-28-2021 15:19-0400 SaO2% (BldA) [Mass fraction] 98 % Charis Daniel [facility] 11-28-2021 15:19-0400 Systolic blood pressure 132 mm[Hg] Charis Daniel [facility] 10-28-2021 09:56-0400 Blood Pressure Location Charis Daniel [facility] 10-28-2021 09:56-0400 Diastolic blood pressure 72 mm[Hg] Charis Daniel [facility] 10-28-2021 09:56-0400 Heart rate 76 /min Charis Daniel [facility] 10-28-2021 09:56-0400 SaO2% (BldA) [Mass fraction] 96 % Charis Daniel [facility] 10-28-2021 09:56-0400 Systolic blood pressure 120 mm[Hg] Charis Daniel [facility] 05-28-2021 12:25-0400 Diastolic blood pressure 64 mm[Hg] Christopher Wells [facility]: [facility] DO Work Phone: 05-28-2021 12:25-0400 Systolic blood pressure 130 mm[Hg] Christopher Wells Work Phone: [facility] Mayi Zhaopin 600 DO Work Phone: 05-28-2021 12:21-0400 Body height 165.1 cm Christopher Wells [facility] Work Phone: 05-28-2021 12:21-0400 Body mass index (BMI) [Ratio] 33.98 kg/m2 Christopher Wells Work Phone: [facility] [employer] 600 DO Work Phone: 05-28-2021 12:21-0400 Body surface area Derived from formula 2 m2 Christopher Wells Work Phone: [facility] 600 DO Work Phone: 05-28-2021 12:21-0400 Body weight 92.63 kg Christopher Wells Work Phone: [facility] 600 DO Work Phone: 05-28-2021 12:21-0400 Diastolic blood pressure 76 mm[Hg] Christopher Wells Work Phone: [facility] 600 DO Work Phone: 05-28-2021 12:21-0400 Heart rate 68 /min Christopher [facility] Work Phone: 05-28-2021 12:21-0400 Systolic blood pressure 140 mm[Hg] Christopher Wells Work Phone: [facility] 600 DO Work Phone: 05-08-2021 11:36-0500 Diastolic blood pressure 90 mm[Hg] Christopher Wells Work Phone: [facility] [employer] 250 DO Work Phone: 05-08-2021 11:36-0500 Systolic blood pressure 180 mm[Hg] Christopher Wells Work Phone: [facility] [employer] 250 DO Work Phone: 05-08-2021 11:20-0500 Body height 165.1 cm Christopher Wells Work Phone: [facility] [employer] 250 DO Work Phone: 02-23-2022 11:20-0500 Body mass index (BMI) [Ratio] 34.11 kg/m2 Christopher Montenegro Kaple Work Phone: [facility] [employer] 250 DO Work Phone: 05-08-2021 11:20-0500 Body surface area Derived from formula 2 m2 Christopher Wells Work Phone: [facility] [employer] 250 DO Work Phone: 05-08-2021 11:20-0500 Body weight 92.99 kg Christopher Montenegro Kaple Work Phone: [facility] [employer] 250 DO Work Phone: 05-08-2021 11:20-0500 Diastolic blood pressure 90 mm[Hg] Christopher Bale Work Phone: [facility] [employer] 250 DO Work Phone: 05-08-2021 11:20-0500 Heart rate 68 /min Christopher Bale Work Phone: [facility] [employer] 250 DO Work Phone: 05-08-2021 11:20-0500 Systolic blood pressure 142 mm[Hg] Christopher Wells Work Phone: [facility] [employer] 250 DO Work Phone: Encounters Encounter Date Encounter Type Care Provider Facility Start: 03-23-2023 End: 03-24-2023 ambulatory Mara Pastor Facility[facility] Start: 03-20-2023 End: 03-21-2023 ambulatory Christopher WELLS Facility:[facility] Start: 03-20-2023 End: 03-20-2023 Patient encounter procedure Christopher WELLS [facility] Start: 03-18-2023 End: 03-18-2023 ambulatory DENTON CASTRO Not Available Start: 03-04-2023 End: 03-05-2023 ambulatory DO Nicola Tapia Facility:[facility] Start: 03-04-2023 End: 03-04-2023 Pain Management Nicola Tapia [facility] Start: 03-03-2023 End: 03-03-2023 Patient encounter procedure Denton Castro [facility] Start: 03-03-2023 End: 03-04-2023 ambulatory Denton Castro [facility] [employer] Other Start: 03-03-2023 Office outpatient vi sit 25 minutes Miguel Membreno [facility] V[facility] Start: 03-02-2023 End: 03-03-2023 ambulatory Linda Solorio Facility:[facility] Start: 03-02-2023 End: 03-02-2023 Patient encounter procedure Linda Solorio [facility] Start: 02-24-2023 End: 02-25-2023 ambulatory Denton Castro Facility:[facility] Start: 02-20-2023 End: 02-20-2023 ambulatory DENTON CASTRO Not Available Start: 02-19-2023 ambulatory Christopher WELLS Facility: [id number] Start: 02-18-2023 End: 02-18-2023 ambulatory Miguel Membreno Facility:[facility] Start: 02-18-2023 End: 02-18-2023 Admission to same day surgery center DO Christopher Wells Work Phone: [facility] Work Phone: Start: 02-18-2023 End: 02-18-2023 ambulatory DO Christopher Wells Work Phone: [facility] Work Phone: Start: 02-16-2023 End: 02-17-2023 ambulatory MD Gary Cerda Facility:[facility] Start: 02-16-2023 End: 02-16-2023 Pain Management Gary Cerda [facility] Start: 02-16-2023 End: 02-17-2023 ambulatory Denton Castro Facility:[facility] Start: 02-16-2023 End: 02-16-2023 Patient encounter procedure Denton Castro [facility] Start: 02-12-2023 End: 02-12-2023 ambulatory [facility] Start: 02-12-2023 End: 02-12-2023 Office outpatient visit 25 minutes Fariha Guidry MD Work Phone: [facility] Comment on above: Atherosclerosis of n ative coronary artery of [place] heart without angina pectoris; Status post coronary angioplasty; Essential hypertension; Hyperlipidemia, unspecified hyperlipidemia type; PVD (peripheral vascular disease) ([facility]); Stage 3 chronic kidney disease, unspecified whether stage 3a or 3b CKD ([facility]); Sleep apnea, unspecified type Start: 02-10-2023 End: 02-11-2023 ambulatory Denton Castro Facility:[facility] Start: 02-10-2023 End: 02-10-2023 Patient encounter procedure Denton Castro [facility] Start: 01-27-2023 End: 01-28-2023 ambulatory Denton Castro [place] [employer] Other Start: 01-27-2023 Telephone encounter Miguel Membreno [facility] Vascular Surgery Start: 01-27-2023 End: 01-27-2023 Patient encounter procedure Denton Castro [facility] Start: 01-26-2023 End: 01-27-2023 ambulatory Christopher WELLS Facility:[facility] Start: 01-26-2023 End: 01-26-2023 Patient encounter procedure Christopher WELLS [facility] Start: 01-26-2023 End: 01-26-2023 Well adult monitoring check done Christopher WELLS [facility] Start: 01-19-2023 End: 01-20-2023 ambulatory Denton Castro Facility:[facility] Start: 01-19-2023 End: 01-19-2023 Patient encounter procedure Denton Castro [facility] Start: 01-13-2023 End: 01-14-2023 ambulatory Denton Castro Facility:[facility] Start: 01-13-2023 End: 01-13-2023 Patient encounter procedure Denton Castro [facility] Start: 01-06-2023 End: 01-07-2023 ambulatory MD Gary Cerda Facility:[facility] Start: 01-06-2023 End: 01-06-2023 Pain Management Gary Cerda [facility] Start: 01-05-2023 End: 01-05-2023 ambulatory Miguel Membreno Other [employer] Other Start: 01-05-2023 Office outpatient vi sit 25 minutes Miguel Membreno [facility] Vascular Surgery Start: 12-31-2022 End: 01-01-2023 ambulatory Catrachito Wolf Facility:[facility] Start: 12-31-2022 End: 12-31-2022 Patient encounter procedure Catrachito Wolf [facility] Start: 12-22-2022 End: 12-23-2022 ambulatory Denton Castro Facility:[facility] Start: 12-18-2022 End: 12-19-2022 ambulatory Christopher WELLS Facility:[facility] Start: 12-08-2022 End: 12-09-2022 ambulatory Catrachito Wolf Facility:[facility] Start: 12-08-2022 End: 12-08-2022 Patient encounter procedure Catrachito Wolf [facility] Start: 11-24-2022 End: 11-25-2022 ambulatory Christopher WELLS Facility:[facility] Start: 11-24-2022 End: 11-24-2022 Patient encounter procedure Christopher WELLS [facility] Start: 11-06-2022 End: 11-07-2022 ambulatory Christopher WELLS Facility:[facility] Start: 11-04-2022 Office outpatient vi sit 25 minutes Miguel Membreno [facility] Vascular Surgery Start: 11-04-2022 End: 11-04-2022 ambulatory DO Christopher Wells Work Phone: [facility] [employer] Other Start: 11-04-2022 End: 11-04-2022 Patient encounter procedure DO Christopher Wells Work Phone: [facility] Start: 11-03-2022 Follow-up encounter Renetta Musa [facility] Start: 11-03-2022 End: 11-03-2022 ambulatory Christopher Wells [facility] [employer] Other Start: 11-03-2022 End: 11-03-2022 Patient encounter procedure DO Christopher Wells Work Phone: [facility] Start: 10-31-2022 End: 11-01-2022 ambulatory Klaus Akkina Facility:[facility] Start: 10-31-2022 End: 10-31-2022 Patient encounter procedure Klaus Akkina [facility] Start: 09-18-2022 Chart Update Christopher Wells Work Phone: [facility] 250 DO Work Phone: Start: 09-17-[address] Christopher Moulton ity:[id number] Start: 09-10-2022 End: 09-11-2022 ambulatory Linda Solorio Facility:[facility] Start: 09-10-2022 End: 09-10-2022 Patient encounter procedure Linda Solorio [facility] Start: 08-01-2022 End: 08-02-2022 ambulatory Fariha Guidry Facility:[facility] Start: 07-23-2022 Rx Renewal [facility] Work Phone: Start: 06-13-2022 Rx Renewal Christopher A Kaple Work Phone: [facility] 250 DO Work Phone: Start: 06-11-2022 End: 06-12-2022 ambulatory Lindajahaira Solorio Facility:[facility] Start: 06-11-2022 End: 06-11-2022 Patient encounter procedure Lindajahaira Solorio [facility] Start: 05-21-2022 End: 05-22-2022 ambulatory Luis BENSON Facility:[facility] Start: 05-08-2022 End: 05-09-2022 ambulatory Lindajahaira Solorio Facility:[facility] Start: 05-08-2022 End: 05-08-2022 Lab Drop off Linda Moni Osmin [facility] Start: 05-05-2022 End: 05-06-2022 ambulatory Lindajahaira Solorio [facility] [employer] Other Start: 05-05-2022 Office outpatient vi sit 25 minutes Miguel Membreno [facility] Vascular Surgery Start: 04-08-2022 End: 04-08-2022 ambulatory Renetta Barahona Other [facility] [employer] Other Start: 04-08-2022 Telephone encounter Renetta Musa [facility] Start: 04-07-2022 End: 04-07-2022 ambulatory Miguel Membreno Facility:[facility] Start: 04-07-2022 End: 04-07-2022 Admission to same day surgery center DO Christopher Wells Work Phone: [facility] Work Phone: Start: 04-07-2022 End: 04-07-2022 ambulatory DO Christopher Wells Work Phone: [facility] Work Phone: Start: 04-02-2022 ambulatory Christopher WELLS Facility:[facility] Start: 03-31-2022 Follow-up encounter Renetta Musa [facility] Start: 03-31-2022 End: 03-31-2022 ambulatory Miguel Membreno Facility:[facility] Start: 03-31-2022 End: 04-01-2022 ambulatory DO Christopher Wells Work Phone: [facility] Work Phone: Start: 03-31-2022 End: 03-31-2022 Patient encounter procedure DO Christopher Wells Work Phone: [facility] Start: 03-31-2022 End: 03-31-2022 Patient encounter procedure Klaus Núñez [facility] Start: 02-12-2022 End: 02-12-2022 Patient encounter procedure Christopher WELLS [facility] Start: 01-27-2022 End: 01-27-2022 ambulatory Miguel Membreno Other [facility] [employer] Other Start: 01-27-2022 Office outpatient ne w 45 minutes Miguel Membreno [facility] Vascular Surgery Start: 01-15-[address] Fariha Guidry Facility: Start: 01-15-2022 Office outpatient vi sit 25 minutes Christopher Wells Work Phone: [facility] 600 DO Work Phone: Start: 12-31-2021 End: 06-01-2022 Recurring Charis Daniel [facility] Start: 11-28-2021 End: 11-28-2021 Patient encounter procedure Charis Daniel [facility] Start: 11-12-2021 Rx Renewal Christopher Wells Work Phone: [facility] 250 DO Work Phone: Start: 10-28-2021 Rx Renewal Christopher Wells Work Phone: [facility] 250 DO Work Phone: Start: 10-28-2021 End: 10-28-2021 Patient encounter procedure [facility] Start: 10-01-2021 End: 10-01-2021 Patient encounter procedure Christopher WELLS [facility] Start: 09-24-2021 End: 09-24-2021 Patient encounter procedure Christopher WELLS [facility] Start: 08-08-2021 End: 08-08-2021 Patient encounter procedure Christopher WELLS [facility] Start: 07-30-2021 Rx Renewal Christopher Wells Work Phone: [facility] 250 DO Work Phone: Start: 06-12-2021 End: 01-13-2022 Recurring Christopher WELLS [facility] Start: 05-28-2021 Office outpatient vi sit 10 minutes Christopher Wells Work Phone: [facility] 600 DO Work Phone: Start: 05-28-2021 ambulatory Christopher Wells Facility: Start: 05-12-2021 Chart Update Christopher Wells Work Phone: [facility] 250 DO Work Phone: Start: 05-08-2021 ambulatory Christopher Wells Facility: Procedures Date Procedure Procedure Detail Performing Clinician Start: 02-18-2023 Lower limb angiography DO Christopher Wells Work Phone: Start: 11-04-2022 Duplex scan of lower limb arteries DO Christopher Wells Work Phone: Start: 11-03-2022 Ankle brachial press ure index DO Christopher Wells Work Phone: Start: 05-21-2022 Colonoscopy Fariha zavala MD Work Phone: Start: 05-21-2022 Colonoscopy Charis Os man Comment on above: biopsies of ascendin g colon, one polyp Start: 04-07-2022 IR Angiogram w/TLA/S tent Left Leg (Left) DO Christopher Wells Work Phone: Start: 03-31-2022 Ankle brachial press ure index DO Christopher Wells Work Phone: Start: 04-15-2017 Colonoscopy Christopher CARTY E Angioplasty of blood vessel Christopher Wells Work Phone: Cardiac Stents x 3 Christopher BA LE Cholecystectomy Christopher meyer Work Phone: Cholecystectomy Christopher WELLS Colonoscopy Christopher Wells Work Phone: Hysterectomy Christopher Wells Work Phone: Hysterectomy Christopher WELLS Insertion of stent i n femoral vein Christopher Wells Work Phone: Plan of Treatment Date Care Activity Detail Author Start: 05-21-2032 Screening for malignant neoplasm of colon [facility] Start: 05-09-2025 DTaP/Tdap/Td Vaccines (2 - Td or Tdap) DTaP/Tdap/Td Vaccines (2 - Td or Tdap) [facility] Start: 02-01-2024 ambulatory Ambulatory Facility:[facility] Start: 07-28-2023 ambulatory Ambulatory Facility:[facility] Start: 02-18-2023 US Lower extremity veins - bilateral [facility] Start: 02-18-2023 US scan venography of lower limbs US venous mapping BI [facility] Start: 02-18-2023 [facility] Start: 02-12-2023 End: 02-13-2024 Alanine aminotransferase [Enzymatic activity/volume] in Serum or Plasma by With P-5'-P Alanine Aminotransferase Lab Routine Atherosclerosis of [place] coronary artery of [place] heart without angina pectoris Hyperlipidemia, unspecified hyperlipidemia type Expected: 02/12/2023 (Approximate), Expires: 02/13/2024 [facility] Service Area Work Phone: Comment on above: Expected: 02/12/2023 (Approximate), Expi res: 02/13/2024 Start: 02-12-2023 End: 02-13-2024 Aspartate aminotransferase [Enzymatic activity/volume] in Serum or Plasma by With P-5'-P Aspartate Aminotransferase Lab Routine Atherosclerosis of [place] coronary artery of [place] heart without angina pectoris Hyperlipidemia, unspecified hyperlipidemia type Expected: 02/12/2023 (Approximate), Expires: 02/13/2024 [facility] Work Phone: Comment on above: Expected: 02/12/2023 (Approximate), Expi res: 02/13/2024 Start: 02-12-2023 End: 02-13-2024 Lipid 1996 panel - Serum or Plasma Lipid Panel Lab Routine Atherosclerosis of [place] coronary artery of [place] heart without angina pectoris Hyperlipidemia, unspecified hyperlipidemia type Expected: 02/12/2023 (Approximate), Expires: 02/13/2024 [facility] Work Phone: Comment on above: Expected: 02/12/2023 (Approximate), Expi res: 02/13/2024 Start: 02-12-2023 FUV, Provider: Fariha Guidry, Status: Pen, Time: 9:00 AM FUV, Provider: Fariha Guidry, Status: Pen, Time: 9:00 AM [facility] DO Work Phone: Start: 11-14-2022 Influenza vaccination Influenza Vaccine (#1) [facility] Start: 07-30-2022 FUV, Provider: Fariha Guidry, Status: Pen, Time: 8:40 AM FUV, Provider: Fariha Guidry, Status: Pen, Time: 8:40 AM [facility] Work Phone: Start: 04-07-2022 [facility] Start: 02-12-2022 COVID-19 Vaccine (4 - Booster for Luca series) COVID-19 Vaccine (4 - Booster for Luca series) [facility] Start: 01-15-2022 FUV, Provider: Fariha Guidry, Status: Pen, Time: 10:10 AM FUV, Provider: Fariha Guidry, Status: Pen, Time: 10:10 AM [facility] Work Phone: Start: 05-28-2021 NURSEVST, Provider: CITLALLI RASHID [employer]UST[employer]ER EXPERIENCE CONSULTANT 1,[id number], Status: Pen, Time: 11:45 AM NURSEVST, Provider: CITLALLI RASHID CUSTOMER EXPERIENCE CONSULTANT 1,[id number], Status: Pen, Time: 11:45 AM [facility] Work Phone: Start: 1989 Screening for malignant neoplasm of breast Mammogram [facility] Start: 06-25-1967 Diabetes mellitus screening Diabetes Screening [facility] Start: 06-25-1967 Hepatitis C screening Hepatitis C Screening [facility] Start: 1949 Lipid panel Lipid Panel [facility] Start: 1949 Medicare Annual Wellness Visit Medicare Annual Wellness Visit (AWV) [facility] Start: 1949 Screening for malignant neoplasm of colon [facility] Start: 1949 Screening for osteoporosis Bone Density Scan [facility] Patient Education [facility] Work Phone: Patient referral [facility] Work Phone: Immunizations Immunization Date Immunization Notes Care Provider Fa christo 12-18-2021 Fluad Quadrivalent 0 .5 ML Intramuscular Prefilled Syringe Christopher Wells Work Phone: [facility] 600 DO Work Phone: 12-18-2021 influenza virus vaccine, unspecified formulation Christopher WELLS [facility] 12-18-2021 Pfizer COVID-19 Vac Bivalent 30 MCG/0.3ML Intramuscular Suspension Christopher Wells Work Phone: [facility] 600 DO Work Phone: 12-18-2021 SARS-CoV-2 (COVID-19 ) mRNA BNT-162b2 vax Christopher WELLS [facility] 03-26-2021 Fluzone High-Dose Quadrivalent 0.7 ML Intramuscular Suspension Prefilled Syringe Christopher Wells Work Phone: [facility] 250 DO Work Phone: 03-26-2021 influenza virus vaccine, unspecified formulation Christopher WELLS [facility] 03-26-2021 Pfizer-BioNTech COVID-19 Vacc 30 MCG/0.3ML Intramuscular Suspension Christopher Wells Work Phone: [place] [address] DO Work Phone: 05-19-2020 Luca COVID-19 Vaccine 0.5 ML Intramuscular Suspension Christopher Wells Work Phone: [place] [address] DO Work Phone: 05-18-2020 COVID-19 vaccine, vector-nr, [id number], PF, 0.5 mL; Translations: [Luca COVID-19 Vaccine] Christopher WELLS [facility] Comment on above: Reason for Medicatio n: Prophylaxis Reason for Medicatio n: Prophylaxis 02-23-2020 zoster vaccine recombinant Christopher Moni Wells Work Phone: [place] [address] DO Work Phone: 01-05-2020 Fluad Quadrivalent 0 .5 ML Intramuscular Prefilled Syringe Christopher Wells Work Phone: [place] [address] DO Work Phone: 01-05-2020 influenza virus vaccine, unspecified formulation Christopher ILBAN [facility] 12-28-2019 influenza, high dose seasonal, preservative-free Christopher Wells Work Phone: [place] [address] DO Work Phone: 12-15-2019 influenza virus vaccine, unspecified formulation Christopher WELLS [facility] 11-15-2019 zoster vaccine recombinant Christopher Moni Wells Work Phone: [place] [address] DO Work Phone: 11-15-2019 zoster vaccine, live Christopher MARTI [facility] 12-20-2018 influenza, high dose seasonal, preservative-free Christopher MEJIALE [facility] 12-14-2018 influenza virus vaccine, unspecified formulation Christopher KAPLE [facility] 12-14-2018 influenza, high dose seasonal, preservative-free Christopher Montenegro Kaple Work Phone: [place] [address] DO Work Phone: 12-14-2018 pneumococcal polysaccharide vaccine, 23 valent Christopher Montenegro Kaple Work Phone: [place] [address] DO Work Phone: 02-16-2018 influenza virus vaccine, unspecified formulation Christopher MEJIALE [facility] 02-16-2018 Influenza, injectabl e, Madin [place] Canine Kidney, preservative free, quadrivalent Christopher Montenegro Kaple Work Phone: [place] [address] DO Work Phone: 02-16-2018 pneumococcal conjuga te vaccine, 13 valent Christopher Montenegro Kaple Work Phone: [place] [address] DO Work Phone: 11-14-2017 influenza virus vaccine, unspecified formulation Christopher Montenegro Kapjanna Work Phone: [place] [address] DO Work Phone: 11-27-2016 influenza virus vaccine, unspecified formulation Christopher BALE [facility] 11-27-2016 influenza, high dose seasonal, preservative-free Christopher Wells Work Phone: [facility] 250 DO Work Phone: 01-21-2016 influenza virus vaccine, unspecified formulation Christopher WELLS [facility] 01-21-2016 influenza, high dose seasonal, preservative-free Christopher Moni Mejiajanna Work Phone: [facility] 250 DO Work Phone: 05-09-2015 tetanus toxoid, redu louise diphtheria toxoid, and acellular pertussis vaccine, adsorbed Christopher Wells Work Phone: [facility] 250 DO Work Phone: 02-26-2009 novel [id number], preservative-free, injectable Christopher Moni Mejiajanna Work Phone: [place] [address] DO Work Phone: NEGATED: Highlighted row has not occurred!02-27-2023 influenza virus vaccine, unspecified formulation Linda Solorio [facility] NEGATED: Highlighted row has not occurred!12-18-2022 influenza virus vaccine, unspecified formulation Catrachito Wolf [facility] Payers Date Payer Category Payer Self-pay [id number] 2022 Unknown [id number] 2018 Unknown 2018 Unknown [id number] 2014 Medicare [id number] 2014 Medicare MEDICARE MEDICAR E PART A AND B [id number] 2014-Present [address] [place] [address] [id number]. [id number] 1949 Unknown [id number] 2.16.840.1.875310.3.579.2.356 1949 Unknown [id number] 2.16.840.1.033545.3.579.2.356 1949 Unknown [id number] 2.16.840.1.945902.3.579.2.356 1949 Unknown [id number] 2.16.840.1.886342.3.579.2.1068 1949 Unknown [id number] 2.16.840.1.024831.3.579.2.1244 1949 Unknown [id number] 2.16.840.1.619645.3.579.2.1259 1949 Unknown [id number] 2.16.840.1.402394.3.579.2.1259 1949 Unknown [id number] 2.16.840.1.701651.3.579.2.727 1949 Unknown [id number] 2.16.840.1.668584.3.579.2.727 1949 Unknown [id number] 2.16.840.1.600551.3.579.2.727 1949 Unknown [id number] 2.16.840.1.991017.3.579.2.727 1949 Unknown [id number] 2.16.840.1.551077.3.579.2.727 1949 Unknown [id number] 2.16.840.1.888982.3.579.2.727 1949 Unknown [id number] 2.16.840.1.204248.3.579.2.727 1949 Unknown [id number] 2.16.840.1.563360.3.579.2.727 1949 Unknown [id number] 2.16.840.1.743655.3.579.2.727 1949 Unknown [id number] 2.16.840.1.779853.3.579.2 1949 Unknown [id number] 2.16.840.1.239587.3.579.2 1949 Unknown [id number] 2.16.840.1.397827.3.579.2 1949 Unknown [id number] 2.16.840.1.653880.3.579. 1949 Unknown [id number] 2.16.840.1.945263.3.579.2 1949 Unknown [id number] 2.16.840.1.203789.3.579. 1949 Unknown [id number] 2.16.840.1.470668.3.579. 1949 Unknown [id number] 2.16.840.1.180038.3.579. 1949 Unknown [id number] 2.16.840.1.071552.3.579. 1949 Unknown [id number] 2.16.840.1.751508.3.579. 1949 Unknown [id number] 2.16.840.1.158106.3.579.2 1949 Unknown [id number] 2.16.840.1.160189.3.579.2 1949 Unknown [id number] 2.16.840.1.697167.3.579.2 1949 Unknown [id number] 2.16.840.1.342802.3.579.2 1949 Unknown [id number] 2.16.840.1.256805.3.579.2 1949 Unknown [id number] 2.16.840.1.905515.3.579.2 1949 Unknown [id number] 2.16.840.1.825265.3.579.2.727 1949 Unknown [id number] 2.16.840.1.258721.3.579.2.727 1949 Unknown [id number] 2.16.840.1.591523.3.579.2.727 1949 Unknown [id number] 2.16.840.1.606214.3.579.2.727 1949 Unknown [id number] 2.16.840.1.243393.3.579.2.727 1949 Unknown [id number] 2.16.840.1.960427.3.579.2.727 Unknown [id number] 2.16.840.1.149473.3.579.2.531 Unknown [id number] 2.16.840.1.613956.3.579.2.531 Unknown [id number] 2.16.840.1.204068.3.579.2.531 Unknown [id number] 2.16.840.1.818122.3.579.2.531 Unknown [id number] 2.16.840.1.761355.3.579.2.531 Social History Date Type Detail Facility Start: 02-12-2023 Never a smoker Never a smoker [place] [address] DO Work Phone: Start: 12-10-2020 End: 03-20-2023 Tobacco smoking status Never smoked tobacco (finding) [facility] Comment on above: denies use Tobacco smoking status Never [facility] Comment on above: denies use Start: 02-12-2023 Sex Assigned At Female F [facility] Start: 1950 Sex Assigned At Female F [facility] Start: 02-12-2023 Tobacco use and exposure Smokeless tobacco non-user [facility] Work Phone: Start: 02-12-2023 Alcohol intake Current drinke r of alcohol (finding) [facility] Work Phone: Start: 02-12-2023 Alcohol Comment [address] [facility] Work Phone: Start: 1950 Sex Assigned At Not on file [facility] Work Phone: Start: 02-02-2023 End: 02-12-2023 Exposure to SARS-CoV-2 (event) Not sure [facility] Medical Equipment Procedure Code Equipment Code Equipment Origin al Text Equipment Identifier Dates Lancets, See Instructions, 100 EA, 11, Dx: E11.9 Directions: BID, [facility], Supply, 166, cm, 05/10/21 8:27:00 EST, Height/Length Dosing, 92.8, kg, 05/10/21 8:27:00 EST, Weight Dosing Start: 05-10-2021 Test strips, See Instructions, 100 EA, 11, Dx: E11.9 Directions: BID, [facility], Supply, 166, cm, 05/10/21 8:27:00 EST, Height/Length Dosing, 92.8, kg, 05/10/21 8:27:00 EST, Weight Dosing Start: 05-10-2021 Lancets, See Instructions, 100 EA, 11, Dx: E11.9 Directions: BID, [facility], Supply, 166, cm, 05/10/21 8:27:00 EST, Height/Length Dosing, 92.8, kg, 05/10/21 8:27:00 EST, Weight Dosing Start: 05-10-2021 Test strips, See Instructions, 100 EA, 11, Dx: E11.9 Directions: BID, [facility], Supply, 166, cm, 05/10/21 8:27:00 EST, Height/Length Dosing, 92.8, kg, 05/10/21 8:27:00 EST, Weight Dosing Start: 05-10-2021 Lancets, See Instructions, 100 EA, 11, Dx: E11.9 Directions: BID, [facility], Supply, 166, cm, 05/10/21 8:27:00 EST, Height/Length Dosing, 92.8, kg, 05/10/21 8:27:00 EST, Weight Dosing Start: 05-10-2021 Test strips, See Instructions, 100 EA, 11, Dx: E11.9 Directions: BID, [facility], Supply, 166, cm, 05/10/21 8:27:00 EST, Height/Length Dosing, 92.8, kg, 05/10/21 8:27:00 EST, Weight Dosing Start: 05-10-2021 Lancets, See Instructions, 100 EA, 11, Dx: E11.9 Directions: BID, [facility], Supply, 166, cm, 05/10/21 8:27:00 EST, Height/Length Dosing, 92.8, kg, 05/10/21 8:27:00 EST, Weight Dosing Start: 05-10-2021 Test strips, See Instructions, 100 EA, 11, Dx: E11.9 Directions: BID, [facility], Supply, 166, cm, 05/10/21 8:27:00 EST, Height/Length Dosing, 92.8, kg, 05/10/21 8:27:00 EST, Weight Dosing Start: 05-10-2021 Lancets, See Instructions, 100 EA, 11, Dx: E11.9 Directions: BID, [facility], Supply, 166, cm, 05/10/21 8:27:00 EST, Height/Length Dosing, 92.8, kg, 05/10/21 8:27:00 EST, Weight Dosing Start: 05-10-2021 Test strips, See Instructions, 100 EA, 11, Dx: E11.9 Directions: BID, [facility], Supply, 166, cm, 05/10/21 8:27:00 EST, Height/Length Dosing, 92.8, kg, 05/10/21 8:27:00 EST, Weight Dosing Start: 05-10-2021 Lancets, See Instructions, 100 EA, 11, Dx: E11.9 Directions: BID, [facility], Supply, 166, cm, 05/10/21 8:27:00 EST, Height/Length Dosing, 92.8, kg, 05/10/21 8:27:00 EST, Weight Dosing Start: 05-10-2021 Test strips, See Instructions, 100 EA, 11, Dx: E11.9 Directions: BID, [facility], Supply, 166, cm, 05/10/21 8:27:00 EST, Height/Length Dosing, 92.8, kg, 05/10/21 8:27:00 EST, Weight Dosing Start: 05-10-2021 Lancets, See Instructions, 100 EA, 11, Dx: E11.9 Directions: BID, [facility], Supply, 166, cm, 05/10/21 8:27:00 EST, Height/Length Dosing, 92.8, kg, 05/10/21 8:27:00 EST, Weight Dosing Start: 05-10-2021 Test strips, See Instructions, 100 EA, 11, Dx: E11.9 Directions: BID, [facility], Supply, 166, cm, 05/10/21 8:27:00 EST, Height/Length Dosing, 92.8, kg, 05/10/21 8:27:00 EST, Weight Dosing Start: 05-10-2021 Lancets, See Instructions, 100 EA, 11, Dx: E11.9 Directions: BID, [facility], Supply, 166, cm, 05/10/21 8:27:00 EST, Height/Length Dosing, 92.8, kg, 05/10/21 8:27:00 EST, Weight Dosing Start: 05-10-2021 Test strips, See Instructions, 100 EA, 11, Dx: E11.9 Directions: BID, [facility], Supply, 166, cm, 05/10/21 8:27:00 EST, Height/Length Dosing, 92.8, kg, 05/10/21 8:27:00 EST, Weight Dosing Start: 05-10-2021 CL CLOSURE DEVIC E EXOSEAL 6F FDA Start: 08-11-2018 CL STENT JIE 2.5 X 08 FDA Start: 08-11-2018 CL CLOSURE DEVIC E EXOSEAL 6F FDA Start: 08-11-2018 CL STENT JIE 2.5 X 08 FDA Start: 08-11-2018 Lancets, See Instructions, 100 EA, 11, Dx: E11.9 Directions: BID, [facility], Supply, 166, cm, 05/10/21 8:27:00 EST, Height/Length Dosing, 92.8, kg, 05/10/21 8:27:00 EST, Weight Dosing Start: 05-10-2021 Test strips, See Instructions, 100 EA, 11, Dx: E11.9 Directions: BID, [facility], Supply, 166, cm, 05/10/21 8:27:00 EST, Height/Length Dosing, 92.8, kg, 05/10/21 8:27:00 EST, Weight Dosing Start: 05-10-2021 Lancets, See Instructions, 100 EA, 11, Dx: E11.9 Directions: BID, [facility], Supply, 166, cm, 05/10/21 8:27:00 EST, Height/Length Dosing, 92.8, kg, 05/10/21 8:27:00 EST, Weight Dosing Start: 05-10-2021 Test strips, See Instructions, 100 EA, 11, Dx: E11.9 Directions: BID, [facility], Supply, 166, cm, 05/10/21 8:27:00 EST, Height/Length Dosing, 92.8, kg, 05/10/21 8:27:00 EST, Weight Dosing Start: 05-10-2021 Lancets, See Instructions, 100 EA, 11, Dx: E11.9 Directions: BID, [facility], Supply, 166, cm, 05/10/21 8:27:00 EST, Height/Length Dosing, 92.8, kg, 05/10/21 8:27:00 EST, Weight Dosing Start: 05-10-2021 Test strips, See Instructions, 100 EA, 11, Dx: E11.9 Directions: BID, [facility], Supply, 166, cm, 05/10/21 8:27:00 EST, Height/Length Dosing, 92.8, kg, 05/10/21 8:27:00 EST, Weight Dosing Start: 05-10-2021 Lancets, See Instructions, 100 EA, 11, Dx: E11.9 Directions: BID, [facility], Supply, 166, cm, 05/10/21 8:27:00 EST, Height/Length Dosing, 92.8, kg, 05/10/21 8:27:00 EST, Weight Dosing Start: 05-10-2021 Test strips, See Instructions, 100 EA, 11, Dx: E11.9 Directions: BID, [id number], Supply, 165, cm, 06/11/22 9:10:00 EDT, Height/Length Dosing, 97.6, kg, 06/11/22 9:10:00 EDT, Weight Dosing Start: 06-13-2022 Lancets, See Instructions, 100 EA, 11, Dx: E11.9 Directions: BID, [facility], Supply, 166, cm, 05/10/21 8:27:00 EST, Height/Length Dosing, 92.8, kg, 05/10/21 8:27:00 EST, Weight Dosing Start: 05-10-2021 Test strips, See Instructions, 100 EA, 11, Dx: E11.9 Directions: BID, [id number], Supply, 165, cm, 06/11/22 9:10:00 EDT, Height/Length Dosing, 97.6, kg, 06/11/22 9:10:00 EDT, Weight Dosing Start: 06-13-2022 CL CLOSURE DEVIC E EXOSEAL 6F FDA Start: 08-11-2018 CL STENT JIE 2.5 X 08 FDA Start: 08-11-2018 Multiple periphe ral artery stent, bare-metal ([id number] FDA Start: 04-07-2022 Lancets, See Instructions, 100 EA, 11, Dx: E11.9 Directions: BID, [facility], Supply, 166, cm, 05/10/21 8:27:00 EST, Height/Length Dosing, 92.8, kg, 05/10/21 8:27:00 EST, Weight Dosing Start: 05-10-2021 Test strips, See Instructions, 100 EA, 11, Dx: E11.9 Directions: BID, [id number], Supply, 165, cm, 06/11/22 9:10:00 EDT, Height/Length Dosing, 97.6, kg, 06/11/22 9:10:00 EDT, Weight Dosing Start: 06-13-2022 Lancets, See Instructions, 100 EA, 11, Dx: E11.9 Directions: BID, [facility], Supply, 166, cm, 05/10/21 8:27:00 EST, Height/Length Dosing, 92.8, kg, 05/10/21 8:27:00 EST, Weight Dosing Start: 05-10-2021 Test strips, See Instructions, 100 EA, 11, Dx: E11.9 Directions: BID, [id number], Supply, 165, cm, 06/11/22 9:10:00 EDT, Height/Length Dosing, 97.6, kg, 06/11/22 9:10:00 EDT, Weight Dosing Start: 06-13-2022 Lancets, See Instructions, 100 EA, 11, Dx: E11.9 Directions: BID, [facility], Supply, 166, cm, 05/10/21 8:27:00 EST, Height/Length Dosing, 92.8, kg, 05/10/21 8:27:00 EST, Weight Dosing Start: 05-10-2021 Test strips, See Instructions, 100 EA, 11, Dx: E11.9 Directions: BID, [id number], Supply, 165, cm, 06/11/22 9:10:00 EDT, Height/Length Dosing, 97.6, kg, 06/11/22 9:10:00 EDT, Weight Dosing Start: 06-13-2022 Lancets, See Instructions, 100 EA, 11, Dx: E11.9 Directions: BID, [facility], Supply, 166, cm, 05/10/21 8:27:00 EST, Height/Length Dosing, 92.8, kg, 05/10/21 8:27:00 EST, Weight Dosing Start: 05-10-2021 Test strips, See Instructions, 100 EA, 11, Dx: E11.9 Directions: BID, [id number], Supply, 165, cm, 06/11/22 9:10:00 EDT, Height/Length Dosing, 97.6, kg, 06/11/22 9:10:00 EDT, Weight Dosing Start: 06-13-2022 Lancets, See Instructions, 100 EA, 11, Dx: E11.9 Directions: BID, [facility], Supply, 166, cm, 05/10/21 8:27:00 EST, Height/Length Dosing, 92.8, kg, 05/10/21 8:27:00 EST, Weight Dosing Start: 05-10-2021 Test strips, See Instructions, 100 EA, 11, Dx: E11.9 Directions: BID, [id number], Supply, 165, cm, 06/11/22 9:10:00 EDT, Height/Length Dosing, 97.6, kg, 06/11/22 9:10:00 EDT, Weight Dosing Start: 06-13-2022 Lancets, See Instructions, 100 EA, 11, Dx: E11.9 Directions: BID, [facility], Supply, 166, cm, 05/10/21 8:27:00 EST, Height/Length Dosing, 92.8, kg, 05/10/21 8:27:00 EST, Weight Dosing Start: 05-10-2021 Test strips, See Instructions, 100 EA, 11, Dx: E11.9 Directions: BID, [id number], Supply, 165, cm, 06/11/22 9:10:00 EDT, Height/Length Dosing, 97.6, kg, 06/11/22 9:10:00 EDT, Weight Dosing Start: 06-13-2022 Lancets, See Instructions, 100 EA, 11, Dx: E11.9 Directions: BID, [facility], Supply, 166, cm, 05/10/21 8:27:00 EST, Height/Length Dosing, 92.8, kg, 05/10/21 8:27:00 EST, Weight Dosing Start: 02-25-2022 Test strips, See Instructions, 100 EA, 11, Dx: E11.9 Directions: BID, [id number], Supply, 165, cm, 06/11/22 9:10:00 EDT, Height/Length Dosing, 97.6, kg, 06/11/22 9:10:00 EDT, Weight Dosing Start: 06-13-2022 Lancets, See Instructions, 100 EA, 11, Dx: E11.9 Directions: BID, [facility], Supply, 166, cm, 05/10/21 8:27:00 EST, Height/Length Dosing, 92.8, kg, 05/10/21 8:27:00 EST, Weight Dosing Start: 05-10-2021 Test strips, See Instructions, 100 EA, 11, Dx: E11.9 Directions: BID, [id number], Supply, 165, cm, 06/11/22 9:10:00 EDT, Height/Length Dosing, 97.6, kg, 06/11/22 9:10:00 EDT, Weight Dosing Start: 06-13-2022 Lancets, See Instructions, 100 EA, 11, Dx: E11.9 Directions: BID, [facility], Supply, 166, cm, 05/10/21 8:27:00 EST, Height/Length Dosing, 92.8, kg, 05/10/21 8:27:00 EST, Weight Dosing Start: 05-10-2021 Test strips, See Instructions, 100 EA, 11, Dx: E11.9 Directions: BID, [id number], Supply, 165, cm, 06/11/22 9:10:00 EDT, Height/Length Dosing, 97.6, kg, 06/11/22 9:10:00 EDT, Weight Dosing Start: 06-13-2022 Lancets, See Instructions, 100 EA, 11, Dx: E11.9 Directions: BID, [facility], Supply, 166, cm, 05/10/21 8:27:00 EST, Height/Length Dosing, 92.8, kg, 05/10/21 8:27:00 EST, Weight Dosing Start: 05-10-2021 Test strips, See Instructions, 100 EA, 11, Dx: E11.9 Directions: BID, [facility][id number], Supply, 165, cm, 06/11/22 9:10:00 EDT, Height/Length Dosing, 97.6, kg, 06/11/22 9:10:00 EDT, Weight Dosing Start: 06-13-2022 Lancets, See Instructions, 100 EA, 11, Dx: E11.9 Directions: BID, [facility], Supply, 166, cm, 05/10/21 8:27:00 EST, Height/Length Dosing, 92.8, kg, 05/10/21 8:27:00 EST, Weight Dosing Start: 05-10-2021 Test strips, See Instructions, 100 EA, 11, Dx: E11.9 Directions: BID, [facility][id number], Supply, 165, cm, 06/11/22 9:10:00 EDT, Height/Length Dosing, 97.6, kg, 06/11/22 9:10:00 EDT, Weight Dosing Start: 06-13-2022 CL CLOSURE DEVIC E EXOSEAL 6F FDA Start: 08-11-2018 CL STENT JIE 2.5 X 08 FDA Start: 08-11-2018 Lancets, See Instructions, 100 EA, 11, Dx: E11.9 Directions: BID, [facility], Supply, 166, cm, 05/10/21 8:27:00 EST, Height/Length Dosing, 92.8, kg, 05/10/21 8:27:00 EST, Weight Dosing Start: 05-10-2021 Test strips, See Instructions, 100 EA, 11, Dx: E11.9 Directions: BID, [id number], Supply, 165, cm, 06/11/22 9:10:00 EDT, Height/Length Dosing, 97.6, kg, 06/11/22 9:10:00 EDT, Weight Dosing Start: 06-13-2022 Lancets, See Instructions, 100 EA, 11, Dx: E11.9 Directions: BID, [facility], Supply, 166, cm, 05/10/21 8:27:00 EST, Height/Length Dosing, 92.8, kg, 05/10/21 8:27:00 EST, Weight Dosing Start: 05-10-2021 Test strips, See Instructions, 100 EA, 11, Dx: E11.9 Directions: BID, [id number], Supply, 165, cm, 06/11/22 9:10:00 EDT, Height/Length Dosing, 97.6, kg, 06/11/22 9:10:00 EDT, Weight Dosing Start: 06-13-2022 Lancets, See Instructions, 100 EA, 11, Dx: E11.9 Directions: BID, [facility], Supply, 166, cm, 05/10/21 8:27:00 EST, Height/Length Dosing, 92.8, kg, 05/10/21 8:27:00 EST, Weight Dosing Start: 05-10-2021 Test strips, See Instructions, 100 EA, 11, Dx: E11.9 Directions: BID, [id number], Supply, 165, cm, 06/11/22 9:10:00 EDT, Height/Length Dosing, 97.6, kg, 06/11/22 9:10:00 EDT, Weight Dosing Start: 06-13-2022 Lancets, See Instructions, 100 EA, 11, Dx: E11.9 Directions: BID, [facility], Supply, 166, cm, 05/10/21 8:27:00 EST, Height/Length Dosing, 92.8, kg, 05/10/21 8:27:00 EST, Weight Dosing Start: 05-10-2021 Test strips, See Instructions, 100 EA, 11, Dx: E11.9 Directions: BID, [id number], Supply, 165, cm, 06/11/22 9:10:00 EDT, Height/Length Dosing, 97.6, kg, 06/11/22 9:10:00 EDT, Weight Dosing Start: 06-13-2022 Functional Status Date Assessment Result Facility 03-20-2023 Functional Status N/A [facility] 03-04-2023 Functional Status N/A [facility] 02-16-2023 Functional Status N/A [facility] 01-26-2023 Functional Status N/A [facility] 01-06-2023 Functional Status N/A [facility] 09-10-2022 Functional Status N/A [facility] 06-11-2022 Functional Status N/A [facility] 04-07-2022 Functional status Patient at [facility] Work Phone: 11-28-2021 N/A [facility] 10-28-2021 No [facility] Mental Status Date Assessment Result Facility 04-07-2022 Cognitive function Cognitive Sta tus Patient at [facility] Work Phone: Clinical Notes 01-27-2022 to 03-20-2023 Note Date & Type Note Facility 03-20-2023 Hospital Discharg e instructions Patient Education 03/20/2023 09:32:40 Diabetes Mellitus and Exercise Diabetes Mellitus and Exercise Exercising regularly is important for overall health, especially for people who have diabetes mellitus. Exercising is not only about losing weight. It has many other health benefits, such as increasing muscle strength and bone density and reducing body fat and stress. This leads to improved fitness, flexibility, and endurance, all of which result in better overall health. What are the benefits of exercise if I have diabetes? Exercise has many benefits for people with diabetes. They include: Helping to lower and control blood sugar (glucose). Helping the body to respond better to the hormone insulin by improving insulin sensitivity. Reducing how much insulin the body needs. Lowering the risk for heart disease by: ?Lowering bad cholesterol and triglyceride levels. ?Increasing good cholesterol levels. ?Lowering blood pressure. ?Lowering blood glucose levels. What is my activity plan? Your health care provider or certified low vision therapist can help you make a plan for the type and frequency of exercise that works for you. This is called your activity plan. Be sure to: Get at least 150 minutes of medium-intensity or high-intensity exercise each week. Exercises may include brisk walking, biking, or water aerobics. Do stretching and strengthening exercises, such as yoga or weight lifting, at least 2 times a week. Spread out your activity over at least 3 days of the week. Get some form of physical activity each day. ?Do not go more than 2 days in a row without some kind of physical activity. ?Avoid being inactive for more than 90 minutes at a time. Take frequent breaks to walk or stretch. Choose exercises or activities that you enjoy. Set realistic goals. Start slowly and gradually increase your exercise intensity over time. How do I manage my diabetes during exercise? Monitor your blood glucose Check your blood glucose before and after exercising. If your blood glucose is: ?240 mg/dL (13.3 mmol/L) or higher before you exercise, check your urine for ketones. These are chemicals created by the liver. If you have ketones in your urine, do not exercise until your blood glucose returns to normal. ?100 mg/dL (5.6 mmol/L) or lower, eat a snack containing 15 20 grams of carbohydrate. Check your blood glucose 15 minutes after the snack to make sure that your glucose level is above 100 mg/dL (5.6 mmol/L) before you start your exercise. Know the symptoms of low blood glucose (hypoglycemia) and how to treat it. Your risk for hypoglycemia increases during and after exercise. Follow these tips and your health care provider's instructions Keep a carbohydrate snack that is fast-acting for use before, during, and after exercise to help prevent or treat hypoglycemia. Avoid injecting insulin into areas of the body that are going to be exercised. For example, avoid injecting insulin into: ?Your arms, when you are about to play tennis. ?Your legs, when you are about to go jogging. Keep records of your exercise habits. Doing this can help you and your health care provider adjust your diabetes management plan as needed. Write down: ?Food that you eat before and after you exercise. ?Blood glucose levels before and after you exercise. ?The type and amount of exercise you have done. Work with your health care provider when you start a new exercise or activity. He or she may need to: ?Make sure that the activity is safe for you. ?Adjust your insulin, other medicines, and food that you eat. Drink plenty of water while you exercise. This prevents loss of water (dehydration) and problems caused by a lot of heat in the body (heat stroke). Where to find more information [place] [employer]: www.diabetes.org Summary Exercising regularly is important for overall health, especially for people who have diabetes mellitus. Exercising has many health benefits. It increases muscle strength and bone density and reduces body fat and stress. It also lowers and controls blood glucose. Your health care provider or certified low vision therapist can help you make an activity plan for the type and frequency of exercise that works for you. Work with your health care provider to make sure any new activity is safe for you. Also work with your health care provider to adjust your insulin, other medicines, and the food you eat. This information is not intended to replace advice given to you by your health care provider. Make sure you discuss any questions you have with your health care provider. Document Revised: 11/28/2019 Document Reviewed: 11/28/2019 [employer] Patient Education 2022 [employer]. Follow Up Care 12/18/2022 08:59:12 With:Christopher WELLS DO, FAAFP, FAM, PED Address: [address] [place], [place] [address]dict [facility] [place] [place] [address]- When:Within 4 Month(s) [facility] 03-04-2023 Evaluation + Plan note Extrac beatriz from: Title:Left hip intra-articul ar corticosteroid injection Author:Nicola Tapia DO Date:03/04/23 Diagnosis: M16.12, left hip pain/osteoarthritis Procedure: Left hip intra-articular corticosteroid injection under fluoroscopic guidance Anesthesia: Local Complications: none After informed consent was obtained, the patient was brought back to the procedure room and placed in the lateral decubitus (procedure side up) position. Procedure site prepped and draped in the usual sterile fashion. Using fluoroscopic guidance, the skin and subcutaneous tissues overlying the needle trajectory over the hip joint were anesthetized with 2% lidocaine. The 22-gauge Quincke needles were then introduced into the hip joint. Injection of contrast under fluoroscopy revealed appropriate intra-articular spread. Thereafter, 5 mL of 0.25% bupivacaine with 60 mg of methylprednisolone was injected into the hip joint. The needle was then removed. The patient tolerated procedure well. Patient was then transferred to the recovery room in stable condition. Follow-up: The patient will update us on the response to this procedure, and agrees to continue currently prescribed/recommended therapies. Future Appointments Appointment Date:03/20/2023 09:00:00 AM Scheduled Provider:Christopher WELLS DO, FAAFP Location:[facility] Appointment Type:FM Open Appointment Date:03/23/2023 08:30:00 AM Scheduled Provider:Mara Pastor PA-C Location:[facility] Appointment Type:Pain Management - Follow Up (FT) Appointment Date:02/01/2024 08:00:00 AM Scheduled Provider: Location:[facility] Appointment Type: Medicare Wellness Subsequent Future Scheduled Tests Laboratory* HgbA1c 03/27/22 * HgbA1c 06/25/22 * HCV Antibody RFX to Quant PCR 01/26/23 [facility]12-20-2023 Note [id number]04[facility]23 NoteDiagnosis: M16.12, left hip pain/osteoarthritis Procedure: Left hip intra-articular corticosteroid injection under fluoroscopic guidance Anesthesia: Local Complications: none After informed consent was obtained, the patient was brought back to the procedure room and placed in the lateral decubitus (procedure side up) position. Procedure site prepped and draped in the usual sterile fashion. Using fluoroscopic guidance, the skin and subcutaneous tissues overlying the needle trajectory over the hip joint were anesthetized with 2% lidocaine. The 22-gauge Quincke needles were then introduced into the hip joint. Injection of contrast under fluoroscopy revealed appropriateintra-articular spread. Thereafter, 5 mL of 0.25% bupivacaine with 60 mg of methylprednisolone was injected into the hip joint. The needle was then removed. The patient tolerated procedure well. Dinorah claros was then transferred to the recovery room in stable condition. Follow-up: The patient will update us on the response to this procedure, and agrees to continue currently prescribed/recommended therapies.[facility] Comment on above:Result Comment: Electronically Signed By: Nicola Tapia DO.maria teresa\Date and Time Signed: 03/04/23 09:06 [id number] Evaluation note* Encounter Date Diagnosis Assessment Notes Treatment Notes Treatment Clinical Notes Feb, Peripheral artery disease (ICD-10 - I73.9) Feb, Other Peripheral vasc ular occlusive disease She does have options for revascularization but would be best treated only if there was significant limb threatening ischemia given that she has not lifestyle limiting claudication. She reports that her wound is nearly completely closed at this time and given its location on the limb I suspect she will go on to complete healing. If she does not heal or deteriorates in any way options include repeat endovascular intervention probably from a popliteal puncture. She could also have prosthetic femoral above-knee popliteal bypass graft. For now we will follow her along and I will see her back in 3 months. She knows to call me sooner should she deteriorate in any way [employer] Other [id number] History of Present illness Narrative* Fariha Guidry MD - 02/12/2023 9:00 AM EST Subjective Evon Corcoran is a 72 y.o. female Chief Complaint Follow-up HPI Patient is in the office for follow-up for the problems noted below. She is scheduled next week to have revascularization of the left lower extremity by vascular surgery for claudication, this is a site where she had previous angioplasty and atherectomy. She has no symptoms of chest pain or angina no palpitations orthopnea PND or lower extremity edema. She does not smoke, she is diabetic but her A1c remains above 10 and I suggested that she discuss with her soybean specialties cook the addition of [id number] or GLP agonists. Reviewed with the patient carotid scan waited several months ago which was unremarkable. ASSESSMENT AND PLAN: 1. Coronary artery disease with history of angioplasty in 2010 to the LAD and diagonal and again inMay 2018 to the LAD for total occlusion with no disease of significance noted otherwise. Nuclear stress test October 2020 was normal 2. Class II obesity. Discussed with the patient the need to reduce calorie consumption and increaseexercise to bring BMI closer to target 3. Dyslipidemia, currently on medium intensity atorvastatin, the patient will need to increase atorvastatin up to 40 mg daily to be on high intensity statin 4. History of DVT on Xarelto 10 mg daily without any bleeding complications. 5. Diabetes, managed by endocrinology in [place]. A1c remains above target, advised patient to discuss with the soybean specialties cook more aggressive therapy. 6. Hypertension completely under control. 7. High-risk medication with Xarelto, so far well-tolerated. Takes baby aspirin twice weekly 8. Stage III chronic kidney disease to be monitored closely, she follow with nephrology 9. intermittent claudications and PAD followed by vascular surgery in [place] [employer]. Patient is scheduled next week to have revascularization for intermittent claudication 10. Sleep apnea not consistently using CPAP machine. Encouraged the patient to utilize it daily. Fariha Guidry MD, [facility] Review of Systems All other systems reviewed and are negative. Visit Vitals BP 120/64 (BP Location: Left arm, Patient Position: Sitting) Pulse 64 Ht 1.651 m (5' 5 ) Wt 97.5 kg (215 lb) BMI 35.78 kg/m Smoking Status Never BSA 2.11 m Objective Physical Exam Constitutional: Appearance: Normal appearance. She is normal weight. HENT: Nose: Nose normal. Neck: Vascular: No carotid bruit. Cardiovascular: Rate and Rhythm: Normal rate. Pulses: Normal pulses. Heart sounds: Normal heart sounds. Pulmonary: Effort: Pulmonary effort is normal. Abdominal: General: Bowel sounds are normal. Palpations: Abdomen is soft. Genitourinary: Rectum: Normal. Musculoskeletal: General: Normal range of motion. Cervical back: Normal range of motion. Right lower leg: No edema. Left lower leg: No edema. Skin: General: Skin is warm and dry. Neurological: General: No focal deficit present. Mental Status: She is alert. Psychiatric: Mood and Affect: Mood normal. Behavior: Behavior normal. Thought Content: Thought content normal. Judgment: Judgment normal. Current Medications Current Outpatient Medications: amLODIPine (Norvasc) 5 mg tablet, Take 1 tablet (5 mg) by mouth once daily., Disp: , Rfl: aspirin 81 mg EC tablet, Take 1 tablet (81 mg) by mouth 2 times a week., Disp: , Rfl: chlorthalidone (Hygroton) 25 mg tablet, Take 1 tablet (25 mg) by mouth once daily., Disp: , Rfl: coenzyme Q-10 100 mg capsule, TAKE 1 CAPSULE BY MOUTH TWICE A DAY, Disp: 180 capsule, Rfl: 3 losartan (Cozaar) 50 mg tablet, Take 1 tablet (50 mg) by mouth 2 times a day., Disp: , Rfl: Terezaumagus Veliz U-100 Insulin 100 unit/mL insulin pen, Inject under the skin., Disp: , Rfl: metoprolol succinate XL (Toprol-XL) 50 mg 24 hr tablet, Take 1 tablet (50 mg) by mouth once daily.,Disp: , Rfl: multivitamin tablet, Take 1 tablet by mouth once daily., Disp: , Rfl: nitroglycerin (Nitrostat) 0.4 mg SL tablet, Place 1 tablet (0.4 mg) under the tongue every 5 minutes if needed., Disp: , Rfl: potassium chloride ER (Micro-K) 10 mEq ER capsule, Take 1 capsule (10 mEq) by mouth once daily., Disp: , Rfl: Xarelto 10 mg tablet, Take 1 tablet (10 mg) by mouth once daily., Disp: 90 tablet, Rfl: 3 atorvastatin (Lipitor) 40 mg tablet, Take 1 tablet (40 mg) by mouth once daily., Disp: 90 tablet, Rfl: 3 Assessment/Plan 1. Atherosclerosis of [place] coronary artery of [place] heart without angina pectoris Follow Up In Cardiology atorvastatin (Lipitor) 40 mg tablet Alanine Aminotransferase Aspartate Aminotransferase Lipid Panel 2. Status post coronary angioplasty Follow Up In Cardiology 3. Essential hypertension Follow Up In Cardiology 4. Hyperlipidemia, unspecified hyperlipidemia type atorvastatin (Lipitor) 40 mg tablet Alanine Aminotransferase Aspartate Aminotransferase Lipid Panel 5. PVD (peripheral vascular disease) ([facility]) 6. Stage 3 chronic kidney disease, unspecified whether stage 3a or 3b CKD ([facility]) 7. [facility], [phone] 349-118811-30-2023 Instructions* Patient Instructions* Saloni Benavides LPN - 02/12/2023 9:00 AM EST Please bring all medicines, vitamins, and herbal supplements with you when you come to the office. Prescriptions will not be filled unless you are compliant with your follow up appointments or have a follow up appointment scheduled as per instruction of your physician. Refills should be requested at the time of your visit. Increase Lipitor to 40 mg daily Lab 3 months Follow [facility] 6 [phone] Hospital Discharge instructions Patient Education 01/26/2023 09:01:27 Diabetes Mellitus and Nutrition, Adult Diabetes Mellitus and Nutrition, Adult When you have diabetes, or diabetes mellitus, it is very important to have healthy eating habits because your blood sugar (glucose) levels are greatly affected by what you eat and drink. Eating healthy foods in the right amounts, at about the same times every day, can help you: Manage your blood glucose. Lower your risk of heart disease. Improve your blood pressure. Reach or maintain a healthy weight. What can affect my meal plan? Every person with diabetes is different, and each person has different needs for a meal plan. Your health care provider may recommend that you work with a dietitian to make a meal plan that is best for you. Your meal plan may vary depending on factors such as: The calories you need. The medicines you take. Your weight. Your blood glucose, blood pressure, and cholesterol levels. Your activity level. Other health conditions you have, such as heart or kidney disease. How do carbohydrates affect me? Carbohydrates, also called carbs, affect your blood glucose level more than any other type of food.Eating carbs raises the amount of glucose in your blood. It is important to know how many carbs you can safely have in each meal. This is different for every person. Your dietitian can help you calculate how many carbs you should have at each meal and for each snack. How does alcohol affect me? Alcohol can cause a decrease in blood glucose (hypoglycemia), especially if you use insulin or takecertain diabetes medicines by mouth. Hypoglycemia can be a life-threatening condition. Symptoms of hypoglycemia, such as sleepiness, dizziness, and confusion, are similar to symptoms of having too much alcohol. Do not drink alcohol if: ?Your health care provider tells you not to drink. ?You are , may be , or are planning to become . If you drink alcohol: ?Limit how much you have to: ?0 1 drink a day for women. ?0 2 drinks a day for men. ?Know how much alcohol is in your drink. In the [place] one drink equals one 12 oz bottle of beer (355 mL), one 5 oz glass of wine (148 mL), or one 1 oz glass of hard liquor (44 mL). ?Keep yourself hydrated with water, diet soda, or unsweetened iced tea. Keep in mind that regular soda, juice, and other mixers may contain a lot of sugar and must be counted as carbs. What are tips for following this plan? Reading food labels Start by checking the serving size on the Nutrition Facts label of packaged foods and drinks. The number of calories and the amount of carbs, fats, and other nutrients listed on the label are based on one serving of the item. Many items contain more than one serving per package. Check the total grams (g) of carbs in one serving. Check the number of grams of saturated fats and trans fats in one serving. Choose foods that have alow amount or none of these fats. Check the number of milligrams (mg) of salt (sodium) in one serving. Most people should limit totalsodium intake to less than 2,300 mg per day. Always check the nutrition information of foods labeled as low-fat or nonfat. These foods may be higher in added sugar or refined carbs and should be avoided. Talk to your dietitian to identify your daily goals for nutrients listed on the label. Shopping Avoid buying canned, pre-made, or processed foods. These foods tend to be high in fat, sodium, and added sugar. Shop around the outside edge of the grocery store. This is where you will most often find fresh fruits and vegetables, bulk grains, fresh meats, and fresh dairy products. Cooking Use low-heat cooking methods, such as baking, instead of high-heat cooking methods, such as deep frying. Cook using healthy oils, such as olive, canola, or sunflower oil. Avoid cooking with butter, cream, or high-fat meats. Meal planning Eat meals and snacks regularly, preferably at the same times every day. Avoid going long periods oftime without eating. Eat foods that are high in fiber, such as fresh fruits, vegetables, beans, and whole grains. Eat 4 6 oz (112 168 g) of lean protein each day, such as lean meat, chicken, fish, eggs, or tofu. One ounce (oz) (28 g) of lean protein is equal to: ?1 oz (28 g) of meat, chicken, or fish. ?1 egg. ? cup (62 g) of tofu. Eat some foods each day that contain healthy fats, such as avocado, nuts, seeds, and fish. What foods should I eat? Fruits Berries. Apples. Oranges. Peaches. Apricots. Plums. Grapes. Mangoes. Papayas. Pomegranates. Kiwi. Cherries. Vegetables Leafy greens, including lettuce, spinach, kale, chard, santos greens, mustard greens, and cabbage.Beets. Cauliflower. Broccoli. Carrots. Green beans. Tomatoes. Peppers. Onions. Cucumbers. Carmen sprouts. Grains Whole grains, such as whole-wheat or whole-grain bread, crackers, tortillas, cereal, and pasta. Unsweetened oatmeal. Quinoa. Brown or wild rice. Meats and other proteins Seafood. Poultry without skin. Lean cuts of poultry and beef. Tofu. Nuts. Seeds. Dairy Low-fat or fat-free dairy products such as milk, yogurt, and cheese. The items listed above may not be a complete list of foods and beverages you can eat and drink. Contact a dietitian for more information. What foods should I avoid? Fruits Fruits canned with syrup. Vegetables Canned vegetables. Frozen vegetables with butter or cream sauce. Grains Refined white flour and flour products such as bread, pasta, snack foods, and cereals. Avoid all processed foods. Meats and other proteins Fatty cuts of meat. Poultry with skin. Breaded or fried meats. Processed meat. Avoid saturated fats. Dairy Full-fat yogurt, cheese, or milk. Beverages Sweetened drinks, such as soda or iced tea. The items listed above may not be a complete list of foods and beverages you should avoid. Contact a dietitian for more information. Questions to ask a health care provider Do I need to meet with a certified diabetes care and movement education specialist? Do I need to meet with a dietitian? What number can I call if I have questions? When are the best times to check my blood glucose? Where to find more information: [place] Diabetes Association: diabetes.org Academy of Nutrition and Dietetics: eatright.org National [place] of Diabetes and Digestive and Kidney Diseases: niddk.nih.gov Association of Diabetes Care & Education Specialists: diabeteseducator.org Summary It is important to have healthy eating habits because your blood sugar (glucose) levels are greatlyaffected by what you eat and drink. It is important to use alcohol carefully. A healthy meal plan will help you manage your blood glucose and lower your risk of heart disease. Your health care provider may recommend that you work with a dietitian to make a meal plan that is best for you. This information is not intended to replace advice given to you by your health care provider. Make sure you discuss any questions you have with your health care provider. Document Revised: 10/03/2020 Document Reviewed: 10/03/2020 [employer] Patient Education 2022 [employer]. 01/26/2023 09:01:11 Fall Prevention in the Home, Adult, Dfgs-ts-Hudp Fall Prevention in the Home, Adult Falls can cause injuries and can happen to people of all ages. There are many things you can do to make your home safe and to help prevent falls. Ask for help when making these changes. What actions can I take to prevent falls? General Instructions Use good lighting in all rooms. Replace any light bulbs that burn out. Turn on the lights in dark areas. Use night-lights. Keep items that you use often in qcxc-[id number] places. Lower the shelves around your home if needed. Set up your furniture so you have a clear path. Avoid moving your furniture around. Do not have throw rugs or other things on the floor that can make you trip. Avoid walking on wet floors. If any of your floors are uneven, fix them. Add color or contrast paint or tape to clearly spike and help you see: ?Grab bars or handrails. ?First and last steps of staircases. ?Where the edge of each step is. If you use a stepladder: ?Make sure that it is fully opened. Do not climb a closed stepladder. ?Make sure the sides of the stepladder are locked in place. ?Ask someone to hold the stepladder while you use it. Know where your pets are when moving through your home. What can I do in the bathroom? Keep the floor dry. Clean up any water on the floor right away. Remove soap buildup in the tub or shower. Use nonskid mats or decals on the floor of the tub or shower. Attach bath mats securely with double-sided, nonslip rug tape. If you need to sit down in the shower, use a plastic, nonslip stool. Install grab bars by the toilet and in the tub and shower. Do not use towel bars as grab bars. What can I do in the bedroom? Make sure that you have a light by your bed that is easy to reach. Do not use any sheets or blankets for your bed that hang to the floor. Have a firm chair with side arms that you can use for support when you get dressed. What can I do in the kitchen? Clean up any spills right away. If you need to reach something above you, use a step stool with a grab bar. Keep electrical cords out of the way. Do not use floor ugand[place] or wax that makes floors slippery. What can I do with my stairs? Do not leave any items on the stairs. Make sure that you have a light switch at the top and the bottom of the stairs. Make sure that there are handrails on both sides of the stairs. Fix handrails that are broken or loose. Install nonslip stair treads on all your stairs. Avoid having throw rugs at the top or bottom of the stairs. Choose a carpet that does not hide the edge of the steps on the stairs. Check carpeting to make sure that it is firmly attached to the stairs. Fix carpet that is loose or worn. What can I do on the outside of my home? Use bright outdoor lighting. Fix the edges of walkways and driveways and fix any cracks. Remove anything that might make you trip as you walk through a door, such as a raised step or threshold. Trim any bushes or trees on paths to your home. Check to see if handrails are loose or broken and that both sides of all steps have handrails. Install guardrails along the edges of any raised decks and porches. Clear paths of anything that can make you trip, such as tools or rocks. Have leaves, snow, or ice cleared regularly. Use sand or salt on paths during winter. Clean up any spills in your garage right away. This includes grease or oil spills. What other actions can I take? Wear shoes that: ?Have a low heel. Do not wear high heels. ?Have rubber bottoms. ?Feel good on your feet and fit well. ?Are closed at the toe. Do not wear open-toe sandals. Use tools that help you move around if needed. These include: ?Canes. ?Walkers. ?Scooters. ?Crutches. Review your medicines with your doctor. Some medicines can make you feel dizzy. This can increase your chance of falling. Ask your doctor what else you can do to help prevent falls. Where to find more information Centers for Disease Control and Prevention[place]: www.cdc.gov National [place] on Aging: www.[place].nih.gov Contact a doctor if: You are afraid of falling at home. You feel weak, drowsy, or dizzy at home. You fall at home. Summary There are many simple things that you can do to make your home safe and to help prevent falls. Ways to make your home safe include removing things that can make you trip and installing grab barsin the bathroom. Ask for help when making these changes in your home. This information is not intended to replace advice given to you by your health care provider. Make sure you discuss any questions you have with your health care provider. Document Revised: 12/02/2021 Document Reviewed: 10/03/2020 [employer] Patient Education 2022 [employer]. 01/26/2023 09:01:04 Hepatitis C, Vbcn-wr-Xgtz Hepatitis C Hepatitis C is a liver infection that is caused by a virus. Many people have no symptoms or only mild symptoms. Hepatitis C is contagious. This means that it can spread from person to person. Over time, the infection can lead to serious liver problems. What are the causes? This condition is caused by a virus. It can spread through: Contact with body fluids from someone who has the virus. This includes: ?Blood. ?Semen or vaginal fluids. Childbirth. A woman can pass the virus to her baby during . Blood or organ donations that were done in the [place] before 1991. What increases the risk? Having contact with needles or syringes that have the virus on them. This may happen when you: ?Get acupuncture. This is a treatment that puts thin needles through your skin. ?Get a tattoo or body piercing. ?Inject drugs. Having sex with someone who has the virus. The virus can be passed through vaginal, oral, or anal sex. Getting treatment to clean your blood (kidney dialysis). Having HIV or AIDS. Having a job that puts you in contact with blood or body fluids. What are the signs or symptoms? You feel very tired. You are not hungry. You feel like you may vomit or you vomit. You have pain in your belly or fluid builds up in your belly. Your pee is dark yellow. Your skin or the white parts of your eyes look yellow (jaundice). Your skin is itchy. Your poop is light in color. You have joint pain. You bleed or bruise often. Often, there are no symptoms. How is this treated? Treatment may depend on your condition and whether you have liver damage. Treatment may include: Taking antiviral medicines and other medicines. Having follow-up treatments every 6 12 months for liver problems. Getting a new liver from a donor. This is called a liver transplant. Follow these instructions at home: Medicines Take tfyz-qai-qhkmqat and prescription medicines only as told by your doctor. If you were given an antiviral medicine, take it as told by your doctor. Do not stop using the antiviral even if you start to feel better. Do not take any new medicines unless your doctor says that this is okay. This includes oask-aiu-zsfwznf medicines and supplements. Activity Rest as needed. Do not have sex until your doctor says this is okay. Do not swim or use hot tubs if you have open sores or wounds. Return to your normal activities as told by your doctor. Ask your doctor what activities are safe for you. Ask your doctor when you may go back to school or work. Eating and drinking Eat a balanced diet. Eat plenty of: ?Fruits and vegetables. ?Whole grains. ?Lean meats or non-meat proteins, such as beans or tofu. Drink enough fluid to keep your pee pale yellow. Do not drink alcohol. General instructions Do not share toothbrushes, nail clippers, or razors. Wash your hands often with soap and water for at least 20 seconds. If you do not have soap and water, use hand body presser. Cover any cuts or open sores on your skin. Keep all follow-up visits. You may need follow-up visits every 6 12 months. How is this prevented? Wash your hands often with soap and water for at least 20 seconds. Do not share needles or syringes. Use a condom every time you have vaginal, oral, or anal sex. Latex condoms should be used, if possible. Do not handle blood or body fluids without gloves or other protection. Avoid getting tattoos or piercings in shops that are not clean. Where to find more information Centers for Disease Control and Prevention: www.cdc.gov World Health Organization: www.who.int Contact a doctor if: You have a fever or chills. You have belly pain. Your pee is dark. Your poop is a light color or coats. You have joint pain. Get help right away if: You feel more tired. You do not feel like eating. You cannot eat or drink without vomiting. Your skin or the whites of your eyes turn yellow or turn more yellow than they were before. You bruise or bleed easily. Summary Hepatitis C is a liver infection that is caused by a virus. Over time, this can lead to serious liver problems. The virus is contagious. This means that it can spread from person to person through blood, semen, or vaginal fluids. Do not take any new medicines unless your doctor says that this is okay. This information is not intended to replace advice given to you by your health care provider. Make sure you discuss any questions you have with your health care provider. Document Revised: 01/17/2021 Document Reviewed: 01/17/2021 [employer] Patient Education 2022 [employer]. 01/26/2023 09:00:41 Exercising to Lose Weight Exercising to Lose Weight Getting regular exercise is important for everyone. It is especially important if you are overweight. Being overweight increases your risk of heart disease, stroke, diabetes, high blood pressure, andseveral types of cancer. Exercising, and reducing the calories you consume, can help you lose weight and improve fitness and health. Exercise can be moderate or vigorous intensity. To lose weight, most people need to do a certain amount of moderate or vigorous-intensity exercise each week. How can exercise affect me? You lose weight when you exercise enough to burn more calories than you eat. Exercise also reduces body fat and builds muscle. The more muscle you have, the more calories you burn. Exercise also: Improves mood. Reduces stress and tension. Improves your overall fitness, flexibility, and endurance. Increases bone strength. Moderate-intensity exercise Moderate-intensity exercise is any activity that gets you moving enough to burn at least three times more energy (calories) than if you were sitting. Examples of moderate exercise include: Walking a mile in 15 minutes. Doing light yard work. Biking at an easy pace. Most people should get at least 150 minutes of moderate-intensity exercise a week to maintain theirbody weight. Vigorous-intensity exercise Vigorous-intensity exercise is any activity that gets you moving enough to burn at least six times more calories than if you were sitting. When you exercise at this intensity, you should be working hard enough that you are not able to carry on a conversation. Examples of vigorous exercise include: Running. Playing a team sport, such as football, basketball, and soccer. Jumping rope. Most people should get at least 75 minutes a week of vigorous exercise to maintain their body weight. What actions can I take to lose weight? The amount of exercise you need to lose weight depends on: Your age. The type of exercise. Any health conditions you have. Your overall physical ability. Talk to your health care provider about how much exercise you need and what types of activities aresafe for you. Nutrition Make changes to your diet as told by your health care provider or diet and compensation/benefits specialist (dietitian). This may include: ?Eating fewer calories. ?Eating more protein. ?Eating less unhealthy fats. ?Eating a diet that includes fresh fruits and vegetables, whole grains, low-fat dairy products, andlean protein. ?Avoiding foods with added fat, salt, and sugar. Drink plenty of water while you exercise to prevent dehydration or heat stroke. Activity Choose an activity that you enjoy and set realistic goals. Your health care provider can help you make an exercise plan that works for you. Exercise at a moderate or vigorous intensity most days of the week. ?The intensity of exercise may vary from person to person. You can tell how intense a workout is for you by paying attention to your breathing and heartbeat. Most people will notice their breathing and heartbeat get faster with more intense exercise. Do resistance training twice each week, such as: ?Push-ups. ?Sit-ups. ?Lifting weights. ?Using resistance bands. Getting short amounts of exercise can be just as helpful as long, structured periods of exercise. If you have trouble finding time to exercise, try doing these things as part of your daily routine: ?Get up, stretch, and walk around every 30 minutes throughout the day. ?Go for a walk during your lunch break. ?Park your car farther away from your destination. ?If you take public transportation, get off one stop early and walk the rest of the way. ?Make phone calls while standing up and walking around. ?Take the stairs instead of elevators or escalators. Wear comfortable clothes and shoes with good support. Do not exercise so much that you hurt yourself, feel dizzy, or get very short of breath. Where to find more information [place] Department of Health and Human Services: www.hhs.gov Centers for Disease Control and Prevention: www.cdc.gov Contact a health care provider: Before starting a new exercise program. If you have questions or concerns about your weight. If you have a medical problem that keeps you from exercising. Get help right away if: You have any of the following while exercising: ?Injury. ?Dizziness. ?Difficulty breathing or shortness of breath that does not go away when you stop exercising. ?Chest pain. ?Rapid heartbeat. These symptoms may represent a serious problem that is an emergency. Do not wait to see if the symptoms will go away. Get medical help right away. Call your local emergency services (911 in the [place] Do not drive yourself to the hospital. Summary Getting regular exercise is especially important if you are overweight. Being overweight increases your risk of heart disease, stroke, diabetes, high blood pressure, and several types of cancer. Losing weight happens when you burn more calories than you eat. Reducing the amount of calories you eat, and getting regular moderate or vigorous exercise each week, helps you lose weight. This information is not intended to replace advice given to you by your health care provider. Make sure you discuss any questions you have with your health care provider. Document Revised: 04/28/2021 Document Reviewed: 04/28/2021 [employer] Patient Education 2022 [employer]. 01/26/2023 09:00:38 Cooking With Less Salt Cooking With Less Salt Cooking with less salt is one way to reduce the amount of sodium you get from food. Sodium is one of the elements that make up salt. It is found naturally in foods and is also added to certain foods.Depending on your condition and overall health, your health care provider or dietitian may recommend that you reduce your sodium intake. Most people should have less than 2,300 milligrams (mg) of sodium each day. If you have high blood pressure (hypertension), you may need to limit your sodium to 1,500 mg each day. Follow the tips below to help reduce your sodium intake. What are tips for eating less sodium? Reading food labels Check the food label before buying or using packaged ingredients. Always check the label for the serving size and sodium content. Look for products with no more than 140 mg of sodium in one serving. Check the % Daily Value column to see what percent of the daily recommended amount of sodium is provided in one serving of the product. Foods with 5% or less in this column are considered low in sodium. Foods with 20% or higher are considered high in sodium. Do not choose foods with salt as one of the first three ingredients on the ingredients list. If salt is one of the first three ingredients, it usually means the item is high in sodium. Shopping Buy sodium-free or low-sodium products. Look for the following words on food labels: ?Low-sodium. ?Sodium-free. ?Reduced-sodium. ?No salt added. ?Unsalted. Always check the sodium content even if foods are labeled as low-sodium or no salt added. Buy fresh foods. Cooking Use herbs, seasonings without salt, and spices as substitutes for salt. Use sodium-free baking soda when baking. Rainbow, braise, or roast foods to add flavor with less salt. Avoid adding salt to pasta, rice, or hot cereals. Drain and rinse canned vegetables, beans, and meat before use. Avoid adding salt when cooking sweets and desserts. Cook with low-sodium ingredients. What foods are high in sodium? Vegetables Regular canned vegetables (not low-sodium or reduced-sodium). Sauerkraut, pickled vegetables, and relishes. Olives. Romansh fries. Onion rings. Regular canned tomato sauce and paste. Regular tomato and vegetable juice. Frozen vegetables in sauces. Grains Instant hot cereals. Bread stuffing, pancake, and biscuit mixes. Croutons. Seasoned rice or pasta mixes. Noodle soup cups. Boxed or frozen macaroni and cheese. Regular salted crackers. Self-rising flour. Rolls. Bagels. Flour tortillas and wraps. Meats and other proteins Meat or fish that is salted, canned, smoked, cured, spiced, or pickled. This includes marie, ham, sausages, hot dogs, corned beef, chipped beef, meat loaves, salt pork, jerky, pickled kaufman, anchovies, regular canned tuna, and sardines. Salted nuts. Dairy Processed cheese and cheese spreads. Cheese curds. Blue cheese. Feta cheese. String cheese. Regularcottage cheese. Buttermilk. Canned milk. The items listed above may not be a complete list of foods high in sodium. Actual amounts of sodiummay be different depending on processing. Contact a dietitian for more information. What foods are low in sodium? Fruits Fresh, frozen, or canned fruit with no sauce added. Fruit juice. Vegetables Fresh or frozen vegetables with no sauce added. No salt added canned vegetables. No salt added tomato sauce and paste. Low-sodium or reduced-sodium tomato and vegetable juice. Grains Noodles, pasta, quinoa, rice. Shredded or puffed wheat or puffed rice. Regular or quick oats (not instant). Low-sodium crackers. Low-sodium bread. Whole-grain bread and whole-grain pasta. Unsalted popcorn. Meats and other proteins Fresh or frozen whole meats, poultry (not injected with sodium), and fish with no sauce added. Unsalted nuts. Dried peas, beans, and lentils without added salt. Unsalted canned beans. Eggs. Unsalted nut butters. Low-sodium canned tuna or chicken. Dairy Milk. Soy milk. Yogurt. Low-sodium cheeses, such as Mexican, Fisher Teodoro, mozzarella, and ricotta. Sherbet or ice cream (keep to cup per serving). Cream cheese. Fats and oils Unsalted butter or margarine. Other foods Homemade pudding. Sodium-free baking soda and baking powder. Herbs and spices. Low-sodium seasoningmixes. Beverages Coffee and tea. Carbonated beverages. The items listed above may not be a complete list of foods low in sodium. Actual amounts of sodium may be different depending on processing. Contact a dietitian for more information. What are some salt alternatives when cooking? The following are herbs, seasonings, and spices that can be used instead of salt to flavor your food. Herbs should be fresh or dried. Do not choose packaged mixes. Next to the name of the herb, spice, or seasoning are some examples of foods you can pair it with. Herbs [place] leaves Soups, meat and vegetable dishes, and spaghetti sauce. Basil [place] dishes, soups, pasta, and fish dishes. Cilantro Meat, poultry, and vegetable dishes. [place] powder Marinades and Afghan dishes. Chives Salad dressings and potato dishes. Cumin Afghan dishes, couscous, and meat dishes. Dill Fish dishes, sauces, and salads. Fennel Meat and vegetable dishes, breads, and cookies. Garlic (do not use garlic salt) [place] dishes, meat dishes, salad dressings, and sauces. Marjoram Soups, potato dishes, and meat dishes. Oregano Pizza and spaghetti sauce. Parsley Salads, soups, pasta, and meat dishes. Vanita [place] dishes, salad dressings, soups, and red meats. Saffron Fish dishes, pasta, and some poultry dishes. Rogelio Stuffings and sauces. Tarragon Fish and poultry dishes. Thyme Stuffing, meat, and fish dishes. Seasonings Lemon juice Fish dishes, poultry dishes, vegetables, and salads. Vinegar Salad dressings, vegetables, and fish dishes. Spices Cinnamon Sweet dishes, such as cakes, cookies, and puddings. Cloves Gingerbread, puddings, and marinades for meats. Lau Vegetable dishes, fish and poultry dishes, and stir-geronimo dishes. Wendy Vegetable dishes, fish dishes, and stir-geronimo dishes. Nutmeg Pasta, vegetables, poultry, fish dishes, and custard. Summary Cooking with less salt is one way to reduce the amount of sodium that you get from food. Buy sodium-free or low-sodium products. Check the food label before using or buying packaged ingredients. Use herbs, seasonings without salt, and spices as substitutes for salt in foods. This information is not intended to replace advice given to you by your health care provider. Make sure you discuss any questions you have with your health care provider. Document Revised: 02/22/2020 Document Reviewed: 02/22/2020 [employer] Patient Education 2022 [employer]. 01/26/2023 09:00:36 BMI for Adults BMI for Adults What is BMI? Body mass index (BMI) is a number that is calculated from a person's weight and height. BMI can help estimate how much of a person's weight is composed of fat. BMI does not measure body fat directly.Rather, it is an alternative to procedures that directly measure body fat, which can be difficult and expensive. BMI can help identify people who may be at higher risk for certain medical problems. What are BMI measurements used for? BMI is used as a screening tool to identify possible weight problems. It helps determine whether a person is obese, overweight, a healthy weight, or underweight. BMI is useful for: Identifying a weight problem that may be related to a medical condition or may increase the risk for medical problems. Promoting changes, such as changes in diet and exercise, to help reach a healthy weight. BMI screening can be repeated to see if these changes are working. How is BMI calculated? BMI involves measuring your weight in relation to your height. Both height and weight are measured,and the BMI is calculated from those numbers. This can be done either in [place] ([place] or metric measurements. Note that charts and online BMI calculators are available to help you find your BMI quickly and easily without having to do these calculations yourself. To calculate your BMI in [place] measurements: 1.Measure your weight in pounds (lb). 2.Multiply the number of pounds by 703. For example, for a person who weighs 180 lb, multiply that number by 703, which equals 126,540. 3.Measure your height in inches. Then multiply that number by itself to get a measurement called inches squared. For example, for a person who is 70 inches tall, the inches squared measurement is 70 inches x 70inches, which equals 4,900 inches squared. 4.Divide the total from step 2 (number of lb x 703) by the total from step 3 (inches squared): 126,540 4,900 = 25.8. This is your BMI. To calculate your BMI in metric measurements: 1.Measure your weight in kilograms (kg). 2.Measure your height in meters (m). Then multiply that number by itself to get a measurement called meters squared. For example, for a person who is 1.75 m tall, the meters squared measurement is 1.75 m x 1.75 m, which is equal to 3.1 meters squared. 3.Divide the number of kilograms (your weight) by the meters squared number. In this example: 70 3.1 = 22.6. This is your BMI. What do the results mean? BMI charts are used to identify whether you are underweight, normal weight, overweight, or obese. The following guidelines will be used: Underweight: BMI less than 18.5. Normal weight: BMI between 18.5 and 24.9. Overweight: BMI between 25 and 29.9. Obese: BMI of 30 or above. Keep these notes in mind: Weight includes both fat and muscle, so someone with a muscular build, such as an athlete, may havea BMI that is higher than 24.9. In cases like these, BMI is not an accurate measure of body fat. To determine if excess body fat is the cause of a BMI of 25 or higher, further assessments may needto be done by a health care provider. BMI is usually interpreted in the same way for men and women. Where to find more information For more information about BMI, including tools to quickly calculate your BMI, go to these websites: Centers for Disease Control and Prevention: www.cdc.gov [place] [employer]: www.heart.org National Heart, Lung, and Blood [place]: www.nhlbi.nih.gov Summary Body mass index (BMI) is a number that is calculated from a person's weight and height. BMI may help estimate how much of a person's weight is composed of fat. BMI can help identify thosewho may be at higher risk for certain medical problems. BMI can be measured using [place] measurements or metric measurements. BMI charts are used to identify whether you are underweight, normal weight, overweight, or obese. This information is not intended to replace advice given to you by your health care provider. Make sure you discuss any questions you have with your health care provider. Document Revised: 11/23/2019 Document Reviewed: 09/30/2019 IM[employer]IN Patient Education 2022 [employer]. [facility] 10-24-2023 Evaluation + Plan noteExtracted from: Title:NPV Author:Gary Cerda MD Date :01/06/23 Impression and Plan 72-year-old female with severe left hip and groin pain consistent with left hip osteoarthritis. The patient reportedly had an x-ray with Catrachito Wolf. I recommend we review that x-ray. She reportedly has arthritis in the left hip and I believe the majority of her symptoms are consistent with left hip osteoarthritis. I recommend that the patient undergo a left hip intra-articular steroid injection for both diagnostic and hopefully therapeutic purposes. Risk, benefits, and alternatives were reviewed with the patient. She will monitor her blood sugar directly following the procedure. Follow-up 2 weeks after the injection to assess response. The patient has other potential sources to her pain including vascular disease, spinal stenosis with neurogenic claudication, and the inflammation around the sacroiliac joints. We may need to proceed with sacroiliac joint injections, epidural steroid injections, and referral to vascular medicine in the future. Future Appointments Appointment Date:01/26/2023 08:00:00 AM Scheduled Provider: Location:[facility] Appointment Type: Medicare Wellness Subsequent Appointment Date:03/12/2023 08:00:00 AM Scheduled Provider:Linda Solorio CNP Location:[facility] Appointment Type:[facility] Follow Up Appointment Date:03/20/2023 09:00:00 AM Scheduled Provider:Christopher WELLS DO, FAAFP Location:[facility] Appointment Type: Open Future Scheduled Tests Laboratory* HgbA1c 03/27/22 * HgbA1c 06/25/22 [facility]10-23-2023 Evaluation note* Encounter Date Diagnosis Assessment Notes Treatment Notes Treatment Clinical Notes Dec, Peripheral vascular disease, unspecified (ICD-10 - I73.9) Dec, Other specified postprocedural states (ICD-10 - Z98.890) Dec, Other Peripheral vasc ular occlusive disease Previously we did not perform repeat vascular intervention for her because her symptoms did not seem consistent with vasculogenic claudication. That seems to continue to be the case based on orthopedic evaluation. However, she now has nonhealing ulceration that has been present for 8 months. Her ulcer is complicated by chronic venous insufficiency as well with postphlebitic syndrome. We will go ahead with repeat attempt at endovascular intervention for her arterial occlusive disease see if we could encourage better wound healing. She understands and is agreement with that plan. [employer] Other 10-11-2023 NoteMicrobiology PROCEDURE: Wound Culture [R1] SOURCE: Abscess BODY SITE: Leg L COLLECTED DATE/TIME: 12/22/2022 08:00 EDT RECEIVED DATE/TIME: 12/22/2022 12:42 EDT START DATE/TIME: 12/22/2022 12:42 EDT FREE TEXT SOURCE: Dolce DPM, Denton D Dolce DPM, Denton D FINAL REPORTS Final Report [] Verified Date/Time: 12/24/2022 12:32 EDT 1+ Staphylococcus aureus 1+ Staphylococcus species coagulase negative STAINS Gram Stain Report [] Verified Date/Time: 12/22/2022 14:08 EDT 1+ White Blood Cells 1+ Gram Positive Cocci SUSCEPTIBILITY RESULTS LEGEND: S=Susceptible, N/R=Not Reported, Blank=Data not available, or drug not advisable or tested, I=Intermediate, ESBL=Extended spectrum beta-lactamase, R=Resistant, TFG=Thymidine-dependent strain, LEESA=Beta-lactamase positive, MAVERICK=mcg/m;(mg/L), S*=Predicted susceptible interp, R*=Predicted resistant interp SA Antibiotic MAVERICK Dilutn MAVERICK Interp Amoxicillin/ <=4/2 S Clavulanate Ampicillin >8 LEESA Ampicillin/ <=8/4 S Sulbactam Azithromycin <=2 S Cefazolin <=8 S Ceftaroline <=0.5 S Ciprofloxacin <=1 S Clindamycin <=0.25 S Daptomycin <=1 S Erythromycin <=0.5 S Gentamicin <=4 S Levofloxacin <=1 S Linezolid <=2 S Nitrofurantoin <=32 Oxacillin 1 S Penicillin >8 LEESA Rifampin <=1 S Tetracycline <=4 S Trimethoprim/ <=0.5/9.5 S Sulfa Vancomycin 1 S Performing Locations R1: This test was performed at: [facility], [address] [place] [address], [id number]- , [place], [facility] HospitalComment on above:Performed By: #### [id number] #### [facility] [address] [place] [address] [id number] Evaluation note* Encounter Date Diagnosis Assessment Notes Treatment Notes Treatment Clinical Notes Oct, Peripheral vascular disease, unspecified (ICD-10 - I73.9) Oct, Other specified postprocedural states (ICD-10 - Z98.890) Oct, Other Peripheral jai ry occlusive disease This patient has reocclusion of the previously opened superficial femoral artery but I am concerned that her primary complaints of pain are not secondary to femoral-popliteal disease. She describes difficulty lifting her left leg and difficulty getting in a car. When she walks her entire leg hurts and it does not improve with rest. I called her primary caregiver Dr. Wells who agrees to see her and evaluate her for musculoskeletal causes for discomfort. We will see if she has degenerative disease of the hip or the spine that might be contributing. If there is no other etiology of her discomfort we can go ahead with a redo intervention for her occluded SFA stent with percutaneous atherectomy and secondary angioplasty or stenting. I will plan to see her back in 2 months. [employer] Other 08-21-2023 Evaluation note* Encounter Date Diagnosis Assessment Notes Treatment Notes Treatment Clinical Notes Oct, PAD (peripheral artery disease) (ICD-10 - I73.9) We reviewed her noninvasive arterial studies in the office today which show moderate to severe disease bilaterally with right DEBORAH 0.51, left DEBORAH 0.35. She does not have any ischemic rest pain. She does not have any tissue loss. Her only complaint today is some left anterior groin pain which seems to be generalized and nonspecific. She complains of inability to lift her leg to put her shoes on or lift her leg to get in the car. This does not seem vasculogenic in nature. She denies any symptoms of claudication. We will go ahead and obtain a left leg arterial duplex to ensure patency of her previous intervention. She should follow-up with her primary care provider for evaluation of her ongoing left groin pain as by physical examination and history this seems musculoskeletal in nature. We will see her back in the office with the arterial duplex of the left leg in the near future. She knows to call us with any issues or concerns. [employer] Other 06-28-2023 Hospital Discharge instructions Patient Education 09/10/2022 08:25:00 Diarrhea, Adult Diarrhea, Adult Diarrhea is frequent loose and watery bowel movements. Diarrhea can make you feel weak and cause you to become dehydrated. Dehydration can make you tired and thirsty, cause you to have a dry mouth, and decrease how often you urinate. Diarrhea typically lasts 2 3 days. However, it can last longer if it is a sign of something more serious. It is important to treat your diarrhea as told by your health care provider. Follow these instructions at home: Eating and drinking Follow these recommendations as told by your health care provider: Take an oral rehydration solution (ORS). This is an phnh-upe-ywlsanb medicine that helps return your body to its normal balance of nutrients and water. It is found at pharmacies and retail stores. Drink plenty of fluids, such as water, ice chips, diluted fruit juice, and low- calorie sports drinks. You can drink milk also, if desired. Avoid drinking fluids that contain a lot of sugar or caffeine, such as energy drinks, sports drinks, and soda. Eat bland, safq-pj-qetmrx foods in small amounts as you are able. These foods include bananas, applesauce, rice, lean meats, toast, and crackers. Avoid alcohol. Avoid spicy or fatty foods. Medicines Take dfmz-vnt-dupdomw and prescription medicines only as told by your health care provider. If you were prescribed an antibiotic medicine, take it as told by your health care provider. Do notstop using the antibiotic even if you start to feel better. General instructions Wash your hands often using soap and water. If soap and water are not available, use a hand body presser. Others in the household should wash their hands as well. Hands should be washed: ?After using the toilet or changing a diaper. ?Before preparing, cooking, or serving food. ?While caring for a sick person or while visiting someone in a hospital. Drink enough fluid to keep your urine pale yellow. Rest at home while you recover. Watch your condition for any changes. Take a warm bath to relieve any burning or pain from frequent diarrhea episodes. Keep all follow-up visits as told by your health care provider. This is important. Contact a health care provider if: You have a fever. Your diarrhea gets worse. You have new symptoms. You cannot keep fluids down. You feel light-headed or dizzy. You have a headache. You have muscle cramps. Get help right away if: You have chest pain. You feel extremely weak or you faint. You have bloody or black stools or stools that look like tar. You have severe pain, cramping, or bloating in your abdomen. You have trouble breathing or you are breathing very quickly. Your heart is beating very quickly. Your skin feels cold and clammy. You feel confused. You have signs of dehydration, such as: ?Dark urine, very little urine, or no urine. ?Cracked lips. ?Dry mouth. ?Sunken eyes. ?Sleepiness. ?Weakness. Summary Diarrhea is frequent loose and sometimes watery bowel movements. Diarrhea can make you feel weak and cause you to become dehydrated. Drink enough fluids to keep your urine pale yellow. Make sure that you wash your hands after using the toilet. If soap and water are not available, usehand body presser. Contact a health care provider if your diarrhea gets worse or you have new symptoms. Get help right away if you have signs of dehydration. This information is not intended to replace advice given to you by your health care provider. Make sure you discuss any questions you have with your health care provider. Document Revised: 09/11/2021 Document Reviewed: 09/11/2021 [employer] Patient Education 2022 [employer]. 09/10/2022 07:52:51 High-Fiber Eating Plan High-Fiber Eating Plan Fiber, also called dietary fiber, is a type of carbohydrate. It is found foods such as fruits, vegetables, whole grains, and beans. A high-fiber diet can have many health benefits. Your health care provider may recommend a high-fiber diet to help: Prevent constipation. Fiber can make your bowel movements more regular. Lower your cholesterol. Relieve the following conditions: ?Inflammation of veins in the anus (hemorrhoids). ?Inflammation of specific areas of the digestive tract (uncomplicated diverticulosis). ?A problem of the large intestine, also called the colon, that sometimes causes pain and diarrhea (irritable bowel syndrome, or IBS). Prevent overeating as part of a weight-loss plan. Prevent heart disease, type 2 diabetes, and certain cancers. What are tips for following this plan? Reading food labels Check the nutrition facts label on food products for the amount of dietary fiber. Choose foods thathave 5 grams of fiber or more per serving. The goals for recommended daily fiber intake include: ?Men (age 50 or younger): 34 38 g. ?Men (over age 50): 28 34 g. ?Women (age 50 or younger): 25 28 g. ?Women (over age 50): 22 25 g. Your daily fiber goal is g. Shopping Choose whole fruits and vegetables instead of processed forms, such as apple juice or applesauce. Choose a wide variety of high-fiber foods such as avocados, lentils, oats, and kidney beans. Read the nutrition facts label of the foods you choose. Be aware of foods with added fiber. These foods often have high sugar and sodium amounts per serving. Cooking Use whole-grain flour for baking and cooking. Cook with brown rice instead of white rice. Meal planning Start the day with a breakfast that is high in fiber, such as a cereal that contains 5 g of fiber or more per serving. Eat breads and cereals that are made with whole-grain flour instead of refined flour or white flour. Eat brown rice, bulgur wheat, or millet instead of white rice. Use beans in place of meat in soups, salads, and pasta dishes. Be sure that half of the grains you eat each day are whole grains. General information You can get the recommended daily intake of dietary fiber by: ?Eating a variety of fruits, vegetables, grains, nuts, and beans. ?Taking a fiber supplement if you are not able to take in enough fiber in your diet. It is better to get fiber through food than from a supplement. Gradually increase how much fiber you consume. If you increase your intake of dietary fiber too quickly, you may have bloating, cramping, or gas. Drink plenty of water to help you digest fiber. Choose high-fiber snacks, such as berries, raw vegetables, nuts, and popcorn. What foods should I eat? Fruits Berries. Pears. Apples. Oranges. Avocado. Prunes and raisins. Dried figs. Vegetables Sweet potatoes. Spinach. Kale. Artichokes. Cabbage. Broccoli. Cauliflower. Green peas. Carrots. Squash. Grains Whole-grain breads. Multigrain cereal. Oats and oatmeal. Brown rice. Barley. Bulgur wheat. Millet. Quinoa. Bran muffins. Popcorn. [place] wafer crackers. Meats and other proteins [place]iwa beans, kidney beans, and chase beans. Soybeans. Split peas. Lentils. Nuts and seeds. Dairy Fiber-fortified yogurt. Beverages Fiber-fortified soy milk. Fiber-fortified orange juice. Other foods Fiber bars. The items listed above may not be a complete list of recommended foods and beverages. Contact a dietitian for more information. What foods should I avoid? Fruits Fruit juice. Cooked, strained fruit. Vegetables Fried potatoes. Canned vegetables. Well-cooked vegetables. Grains White bread. Pasta made with refined flour. White rice. Meats and other proteins Fatty cuts of meat. Fried chicken or fried fish. Dairy Milk. Yogurt. Cream cheese. Sour cream. Fats and oils Spickard. Beverages Soft drinks. Other foods Cakes and pastries. The items listed above may not be a complete list of foods and beverages to avoid. Talk with your dietitian about what choices are best for you. Summary Fiber is a type of carbohydrate. It is found in foods such as fruits, vegetables, whole grains, andbeans. A high-fiber diet has many benefits. It can help to prevent constipation, lower blood cholesterol, aid weight loss, and reduce your risk of heart disease, diabetes, and certain cancers. Increase your intake of fiber gradually. Increasing fiber too quickly may cause cramping, bloating,and gas. Drink plenty of water while you increase the amount of fiber you consume. The best sources of fiber include whole fruits and vegetables, whole grains, nuts, seeds, and beans. This information is not intended to replace advice given to you by your health care provider. Make sure you discuss any questions you have with your health care provider. Document Revised: 07/05/2020 Document Reviewed: 07/05/2020 [employer] Patient Education 2022 [employer]. Follow Up Care 06/11/2022 09:32:08 With:Linda Solorio CNP Address: When:6 months [facility] 03-29-2023 Hospital Discharge instructions Patient Education 06/11/2022 09:15:21 High-Fiber Diet High-Fiber Diet Fiber, also called dietary fiber, is a type of carbohydrate that is found in fruits, vegetables, whole grains, and beans. A high-fiber diet can have many health benefits. Your health care provider may recommend a high-fiber diet to help: Prevent constipation. Fiber can make your bowel movements more regular. Lower your cholesterol. Relieve the following conditions: ?Swelling of veins in the anus (hemorrhoids). ?Swelling and irritation (inflammation) of specific areas of the digestive tract (uncomplicated diverticulosis). ?A problem of the large intestine (colon) that sometimes causes pain and diarrhea (irritable bowel syndrome, IBS). Prevent overeating as part of a weight-loss plan. Prevent heart disease, type 2 diabetes, and certain cancers. What is my plan? The recommended daily fiber intake in grams (g) includes: 38 g for men age 50 or younger. 30 g for men over age 50. 25 g for women age 50 or younger. 21 g for women over age 50. You can get the recommended daily intake of dietary fiber by: Eating a variety of fruits, vegetables, grains, and beans. Taking a fiber supplement, if it is not possible to get enough fiber through your diet. What do I need to know about a high-fiber diet? It is better to get fiber through food sources rather than from fiber supplements. There is not a lot of research about how effective supplements are. Always check the fiber content on the nutrition facts label of any prepackaged food. Look for foodsthat contain 5 g of fiber or more per serving. Talk with a diet and compensation/benefits specialist (dietitian) if you have questions about specific foods that are recommended or not recommended for your medical condition, especially if those foods are not listed below. Gradually increase how much fiber you consume. If you increase your intake of dietary fiber too quickly, you may have bloating, cramping, or gas. Drink plenty of water. Water helps you to digest fiber. What are tips for following this plan? Eat a wide variety of high-fiber foods. Make sure that half of the grains that you eat each day are whole grains. Eat breads and cereals that are made with whole-grain flour instead of refined flour or white flour. Eat brown rice, bulgur wheat, or millet instead of white rice. Start the day with a breakfast that is high in fiber, such as a cereal that contains 5 g of fiber or more per serving. Use beans in place of meat in soups, salads, and pasta dishes. Eat high-fiber snacks, such as berries, raw vegetables, nuts, and popcorn. Choose whole fruits and vegetables instead of processed forms like juice or sauce. What foods can I eat? Fruits Berries. Pears. Apples. Oranges. Avocado. Prunes and raisins. Dried figs. Vegetables Sweet potatoes. Spinach. Kale. Artichokes. Cabbage. Broccoli. Cauliflower. Green peas. Carrots. Squash. Grains Whole-grain breads. Multigrain cereal. Oats and oatmeal. Brown rice. Barley. Bulgur wheat. Millet. Quinoa. Bran muffins. Popcorn. [place] wafer crackers. Meats and other proteins [place]iwa, kidney, and chase beans. Soybeans. Split peas. Lentils. Nuts and seeds. Dairy Fiber-fortified yogurt. Beverages Fiber-fortified soy milk. Fiber-fortified orange juice. Other foods Fiber bars. The items listed above may not be a complete list of recommended foods and beverages. Contact a dietitian for more options. What foods are not recommended? Fruits Fruit juice. Cooked, strained fruit. Vegetables Fried potatoes. Canned vegetables. Well-cooked vegetables. Grains White bread. Pasta made with refined flour. White rice. Meats and other proteins Fatty cuts of meat. Fried chicken or fried fish. Dairy Milk. Yogurt. Cream cheese. Sour cream. Fats and oils [place]ard. Beverages Soft drinks. Other foods Cakes and pastries. The items listed above may not be a complete list of foods and beverages to avoid. Contact a dietitian for more information. Summary Fiber is a type of carbohydrate. It is found in fruits, vegetables, whole grains, and beans. There are many health benefits of eating a high-fiber diet, such as preventing constipation, lowering blood cholesterol, helping with weight loss, and reducing your risk of heart disease, diabetes, and certain cancers. Gradually increase your intake of fiber. Increasing too fast can result in cramping, bloating, and gas. Drink plenty of water while you increase your fiber. The best sources of fiber include whole fruits and vegetables, whole grains, nuts, seeds, and beans. This information is not intended to replace advice given to you by your health care provider. Make sure you discuss any questions you have with your health care provider. Document Released: 03/02/2006 Document Revised: 01/04/2018 Document Reviewed: 01/04/2018 [employer] Patient Education 2020 [employer]. 06/11/2022 09:15:20 Hemorrhoids Hemorrhoids Hemorrhoids are swollen veins in and around the rectum or anus. There are two types of hemorrhoids: Internal hemorrhoids. These occur in the veins that are just inside the rectum. They may poke through to the outside and become irritated and painful. External hemorrhoids. These occur in the veins that are outside the anus and can be felt as a painful swelling or hard lump near the anus. Most hemorrhoids do not cause serious problems, and they can be managed with home treatments such as diet and lifestyle changes. If home treatments do not help the symptoms, procedures can be done toshrink or remove the hemorrhoids. What are the causes? This condition is caused by increased pressure in the anal area. This pressure may result from various things, including: Constipation. Straining to have a bowel movement. Diarrhea. . Obesity. Sitting for long periods of time. Heavy lifting or other activity that causes you to strain. Anal sex. Riding a bike for a long period of time. What are the signs or symptoms? Symptoms of this condition include: Pain. Anal itching or irritation. Rectal bleeding. Leakage of stool (feces). Anal swelling. One or more lumps around the anus. How is this diagnosed? This condition can often be diagnosed through a visual exam. Other exams or tests may also be done,such as: An exam that involves feeling the rectal area with a gloved hand (digital rectal exam). An exam of the anal canal that is done using a small tube (anoscope). A blood test, if you have lost a significant amount of blood. A test to look inside the colon using a flexible tube with a camera on the end (sigmoidoscopy or colonoscopy). How is this treated? This condition can usually be treated at home. However, various procedures may be done if dietary changes, lifestyle changes, and other home treatments do not help your symptoms. These procedures canhelp make the hemorrhoids smaller or remove them completely. Some of these procedures involve surgery, and others do not. Common procedures include: Rubber band ligation. Rubber bands are placed at the base of the hemorrhoids to cut off their bloodsupply. Sclerotherapy. Medicine is injected into the hemorrhoids to shrink them. Infrared coagulation. A type of light energy is used to get rid of the hemorrhoids. Hemorrhoidectomy surgery. The hemorrhoids are surgically removed, and the veins that supply them are tied off. Stapled hemorrhoidopexy surgery. The surgeon ernesto the base of the hemorrhoid to the rectal wall. Follow these instructions at home: Eating and drinking Eat foods that have a lot of fiber in them, such as whole grains, beans, nuts, fruits, and vegetables. Ask your health care provider about taking products that have added fiber (fiber supplements). Reduce the amount of fat in your diet. You can do this by eating low-fat dairy products, eating less red meat, and avoiding processed foods. Drink enough fluid to keep your urine pale yellow. Managing pain and swelling Take warm sitz baths for 20 minutes, 3 4 times a day to ease pain and discomfort. You may do this in a bathtub or using a portable sitz bath that fits over the toilet. If directed, apply ice to the affected area. Using ice packs between sitz baths may be helpful. ?Put ice in a plastic bag. ?Place a towel between your skin and the bag. ?Leave the ice on for 20 minutes, 2 3 times a day. General instructions Take [id number] and prescription medicines only as told by your health care provider. Use medicated creams or suppositories as told. Get regular exercise. Ask your health care provider how much and what kind of exercise is best for you. In general, you should do moderate exercise for at least 30 minutes on most days of the week (150 minutes each week). This can include activities such as walking, biking, or yoga. Go to the bathroom when you have the urge to have a bowel movement. Do not wait. Avoid straining to have bowel movements. Keep the anal area dry and clean. Use wet toilet paper or moist towelettes after a bowel movement. Do not sit on the toilet for long periods of time. This increases blood pooling and pain. Keep all follow-up visits as told by your health care provider. This is important. Contact a health care provider if you have: Increasing pain and swelling that are not controlled by treatment or medicine. Difficulty having a bowel movement, or you are unable to have a bowel movement. Pain or inflammation outside the area of the hemorrhoids. Get help right away if you have: Uncontrolled bleeding from your rectum. Summary Hemorrhoids are swollen veins in and around the rectum or anus. Most hemorrhoids can be managed with home treatments such as diet and lifestyle changes. Taking warm sitz baths can help ease pain and discomfort. In severe cases, procedures or surgery can be done to shrink or remove the hemorrhoids. This information is not intended to replace advice given to you by your health care provider. Make sure you discuss any questions you have with your health care provider. Document Released: 02/27/2001 Document Revised: 07/29/2019 Document Reviewed: 07/22/2018 [employer] Patient Education 2020 [employer]. 06/11/2022 09:15:19 Colon Polyps Colon Polyps Polyps are tissue growths inside the body. Polyps can grow in many places, including the large intestine (colon). A polyp may be a round bump or a mushroom-shaped growth. You could have one polyp or several. Most colon polyps are noncancerous (benign). However, some colon polyps can become cancerous over time. Finding and removing the polyps early can help prevent this. What are the causes? The exact cause of colon polyps is not known. What increases the risk? You are more likely to develop this condition if you: Have a family history of colon cancer or colon polyps. Are older than 50 or older than 45 if you are . Have inflammatory bowel disease, such as ulcerative colitis or Crohn's disease. Have certain hereditary conditions, such as: ?Familial adenomatous polyposis. ?Blount syndrome. ?Turcot syndrome. ?Peutz Jeghers syndrome. Are overweight. Smoke cigarettes. Do not get enough exercise. Drink too much alcohol. Eat a diet that is high in fat and red meat and low in fiber. Had childhood cancer that was treated with abdominal radiation. What are the signs or symptoms? Most polyps do not cause symptoms. If you have symptoms, they may include: Blood coming from your rectum when having a bowel movement. Blood in your stool. The stool may look dark red or black. Abdominal pain. A change in bowel habits, such as constipation or diarrhea. How is this diagnosed? This condition is diagnosed with a colonoscopy. This is a procedure in which a lighted, flexible scope is inserted into the anus and then passed into the colon to examine the area. Polyps are sometimes found when a colonoscopy is done as part of routine cancer screening tests. How is this treated? Treatment for this condition involves removing any polyps that are found. Most polyps can be removed during a colonoscopy. Those polyps will then be tested for cancer. Additional treatment may be needed depending on the results of testing. Follow these instructions at home: Lifestyle Maintain a healthy weight, or lose weight if recommended by your health care provider. Exercise every day or as told by your health care provider. Do not use any products that contain nicotine or tobacco, such as cigarettes and e-cigarettes. If you need help quitting, ask your health care provider. If you drink alcohol, limit how much you have: ?0 1 drink a day for women. ? 0 2 drinks a day for men. Be aware of how much alcohol is in your drink. In the [place] one drink equals one 12 oz bottle of beer (355 mL), one 5 oz glass of wine (148 mL), or one 1 oz shot of hard liquor (44 mL). Eating and drinking Eat foods that are high in fiber, such as fruits, vegetables, and whole grains. Eat foods that are high in calcium and vitamin D, such as milk, cheese, yogurt, eggs, liver, fish, and broccoli. Limit foods that are high in fat, such as fried foods and desserts. Limit the amount of red meat and processed meat you eat, such as hot dogs, sausage, marie, and lunch meats. General instructions Keep all follow-up visits as told by your health care provider. This is important. ?This includes having regularly scheduled colonoscopies. ?Talk to your health care provider about when you need a colonoscopy. Contact a health care provider if: You have new or worsening bleeding during a bowel movement. You have new or increased blood in your stool. You have a change in bowel habits. You lose weight for no known reason. Summary Polyps are tissue growths inside the body. Polyps can grow in many places, including the colon. Most colon polyps are noncancerous (benign), but some can become cancerous over time. This condition is diagnosed with a colonoscopy. Treatment for this condition involves removing any polyps that are found. Most polyps can be removed during a colonoscopy. This information is not intended to replace advice given to you by your health care provider. Make sure you discuss any questions you have with your health care provider. Document Released: 11/26/2004 Document Revised: 06/17/2018 Document Reviewed: 06/17/2018 [employer] Patient Education [place]. Follow Up Care 06/09/2022 16:22:13 With:Linda Solorio CNP Address: When:3 months [facility] 03-09-2023 Note [id number] 05-05-2022 Evaluation note* Encounter Date Diagnosis Assessment Notes Treatment Notes Treatment Clinical Notes Apr, Peripheral vascular disease, unspecified (ICD-10 - I73.9) Apr, Other specified postprocedural states (ICD-10 - Z98.890) Apr, Other Peripheral arterial occlusive disease She has a good clinical outcome. I will see her back in 6 months with ABIs on that day. She will continue her current medical regimen. [facility] Other 01-24-2023 Evaluation note* Encounter Date Diagnosis Assessment Notes Treatment Notes Treatment Clinical Notes Mar, Post-op pain (ICD-10 - G89.18) [facility] Other 01-16-2023 Evaluation + Plan note Diagnostic Tests Pending * PTH Intact 03/31/22 * Immunofixation Serum 03/31/22 * Immunofixation, Urine 03/31/22 * C3 Complement 03/31/22 * C4 Complement 03/31/22 * Free K+L Lt Chains,Qn,S 03/31/22 Future Scheduled Tests Laboratory* HgbA1c 03/27/22 * HgbA1c 06/25/22 [facility] Evaluation note* Encounter Date Diagnosis Assessment Notes Treatment Notes Treatment Clinical Notes Mar, PAD (peripheral artery disease) (ICD-10 - I73.9) We reviewed today's DEBORAH studies which indicate moderate to severe peripheral vascular occlusive disease bilaterally. By physical examination she has nonpalpable femoral pulses bilaterally. She does not have any open sores or ulcers. She does complain of severe lifestyle limiting claudication after only walking just a couple of minutes. This interferes with her lifestyle daily. She has been managed medically with use of aspirin and statin medications daily. She also takes Xarelto daily due to history of blood clots. She is a non-smoker. She has tried to work on her walking program for over 3 months now and her symptoms continue to worsen. Dr. Membreno in room to discuss recommendation for diagnostic angiogram and likely intervention for iliofemoral disease. Procedure, risk, benefits were discussed at length along with all medical/surgical alternatives and all of her questions were addressed. Consent was obtained. We will get this on the schedule in the near future. She verbalizes understanding of all discussion, agrees this plan, and denies any questions. Mar, Claudication of both lower extremities (ICD-10 - I73.9) [facility] Other 01-12-2023 Evaluation + Plan note Future Scheduled Tests Laboratory* HgbA1c 03/27/22 * HgbA1c 06/25/22 [facility]-14-20[facility] Evaluation note* Encounter Date Diagnosis Assessment Notes Treatment Notes Treatment Clinical Notes Jan, Peripheral artery disease (ICD-10 - I73.9) Jan, Other Peripheral jai rial occlusive disease with vasculogenic claudication This patient comes for discussion of appropriate treatment plans for vasculogenic claudication. She has been in a walking program for about 1 month and on discussing this with her she is getting increased distance. She is on appropriate medical therapy and does not have any limb threat at this time. I believe she should continue to the completion of her walking program which is 3 months and after that I would see her back and reevaluate her with repeat ankle-brachial indices. I advised her any amount of weight loss would help her with her distances. I reviewed the patient's images with her so she could see the location of her occlusive disease and we discussed what interventions were possible should any be required. All questions were answered to her satisfaction and we will plan to see her back in 2 months time with the ABIs. 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 59 (F Appointment Date:10/16/2021 01:00:00 PM Scheduled Provider[facility]DM [facility] () [facility] Evaluation + Plan note Future Appointments Appointment Date:10/15/2021 09:00:00 AM Scheduled Provider: Location:.[facility] Appointment Type:DM Diabetes Group (FT) Appointment Date:10/28/2021 09:45:00 AM Scheduled Provider:Charis Daniel MD Location[facility] Appointment Type:Vascular New Patient (FT) Appointment Date:12/16/2021 09:40:00 AM Scheduled Provider:Christopher WELLS DO, FAAFP Location:[facility] Appointment Type: Open Future Scheduled Tests Laboratory* HgbA1c 12/25/21 * HgbA1c 03/27/22 * HgbA1c 06/25/22 Radiology* US PVR Lower EXT Complete [facility] Appointment Date:10/15/2021 09:00:00 AM Scheduled Provider: Location:.[facility] Appointment Type:DM Diabetes Group (FT) Appointment Date:10/28/2021 09:45:00 AM Scheduled Provider:Charis Daniel MD Location[facility] Appointment Type:Vascular New Patient (FT) Appointment Date:12/16/2021 09:40:00 AM Scheduled Provider:Christopher WELLS DO, FAAFP Location:[facility] Appointment Type:FM Open Future Scheduled Tests Laboratory* HgbA1c 12/25/21 * HgbA1c 03/27/22 * [facility]gbA[facility] Appointment Date:12/16/2021 09:40:00 AM Scheduled Provider:Christopher WELLS DO, FAAFP Location:[facility] Appointment Type:FM Open Appointment Date:01/02/2022 01:00:00 PM Scheduled Provider: [facility] Type[facility]DM Diabetes Group (FT) Future Scheduled Tests Laboratory* HgbA1c 12/25/21 * HgbA1c 03/27/22 * HgbA1c 06/25/22 Radiology* US LE Venous Duplex Insufficiency Bilat 10/28/21 * CTA Abd Aorto-bilat/ iliofemoral runoff [facility] Appointment Date:12/16/2021 09:40:00 AM Scheduled Provider:Christopher WELLS DO, FAAFP Location:[facility] Appointment Type:FM Open Appointment Date:01/02/2022 01:00:00 PM Scheduled Provider: [facility] Type:DM Diabetes Group (FT) Appointment Date:02/24/2022 09:00:00 AM Scheduled Provider:Charis Daniel MD Location[facility] Appointment Type:Vascular Follow Up (FT) Future Scheduled Tests Laboratory* HgbA1c 12/25/21 * HgbA1c 03/27/22 * HgbA1c [facility] Appointment Date:02/24/2022 09:00:00 AM Scheduled Provider:Charis Daniel MD [facility] Appointment Type:Vascular Follow Up (FT) Future Scheduled Tests Laboratory* HgbA1c 12/25/21 * HgbA1c 03/27/22 * HgbA1c [facility] Appointment Date:02/24/2022 09:00:00 AM Scheduled Provider:Charis Daniel MD [facility] Appointment Type:Vascular Follow Up (FT) Future Scheduled Tests Laboratory* HgbA1c 03/27/22 * HgbA1c [facility] Appointment Date:05/21/2022 01:05:00 PM Scheduled Provider: Location:[facility] Appointment Type:Surgery FT Diagnostic Tests Pending * O & P Exam, Routine 05/08/22 * Giardia lamblia, Direct Detection EIA 05/08/22 Future Scheduled Tests Laboratory* HgbA1c 03/27/22 * HgbA1c [facility] Appointment Date:09/10/2022 08:00:00 AM Scheduled Provider:Linda Solorio CNP Location:[facility] Appointment Type:BADH Follow Up Future Scheduled Tests Laboratory* HgbA1c 03/27/22 * HgbA1c 06/25/22 [facility] Evaluation + Plan note Future Appointments Appointment Date:03/12/2023 08:00:00 AM Scheduled Provider:Linda Solorio CNP Location:[facility] Appointment Type:BAD Follow Up Future Scheduled Tests Laboratory* HgbA1c 03/27/22 * HgbA1c 06/25/22 [facility] Evaluation + Plan note Future Appointments Appointment Date:12/18/2022 08:20:00 AM Scheduled Provider:Christopher WELLS DO, FAAFP [facility] Type:FM Open Appointment Date:01/26/2023 08:00:00 AM Scheduled Provider: Location:[facility] Appointment Type:FM Medicare Wellness Subsequent Appointment Date:03/12/2023 08:00:00 AM Scheduled Provider:Linda Solorio CNP Location:[facility] Appointment Type:BADH Follow Up Future Scheduled Tests Laboratory* HgbA1c 03/27/22 * HgbA1c [facility]22 [facility] Appointment Date:01/06/2023 08:30:00 AM Scheduled Provider:Gary Cerda MD Location:[facility] Appointment Type:Pain Management - New (FT) Appointment Date:01/26/2023 08:00:00 AM Scheduled Provider: Location:[facility] Appointment Type:FM Medicare Wellness Subsequent Appointment Date:03/12/2023 08:00:00 AM Scheduled Provider:Linda Solorio CNP Location:[facility] Appointment Type:BAD Follow Up Appointment Date:03/20/2023 09:00:00 AM Scheduled Provider:Christopher WELLS DO, FAAFP Location:[facility] Appointment Type:FM Open Future Scheduled Tests Laboratory* HgbA1c 03/27/22 * HgbA1c 06/25/22 [facility] Future App[facility]ments Appointment Date:01/19/2023 09:30:00 AM Scheduled Provider: Location:[facility] Appointment Type:WC Assessment (FT) Appointment Date:01/26/2023 08:00:00 AM Scheduled Provider: Location:[facility] Appointment Type:FM Medicare Wellness Subsequent Appointment Date:01/27/2023 02:00:00 PM Scheduled Provider:Denton Castro DPM Location:[facility] Appointment Type:WC Follow Up Visit (FT) Appointment Date:02/02/2023 09:45:00 AM Scheduled Provider: Location:[facility] Appointment Type:Surgery FT Appointment Date:02/17/2023 08:45:00 AM Scheduled Provider:Gary Cerda MD Location:[facility] Appointment Type:Pain Management - Follow Up (FT) Appointment Date:03/12/2023 08:00:00 AM Scheduled Provider:Linda Solorio CNP Location:[facility] Appointment Type:BAD Follow Up Appointment Date:03/20/2023 09:00:00 AM Scheduled Provider:Christopher WELLS DO, FAAFP Location:[facility] Appointment Type:FM Open Future Scheduled Tests Laboratory* HgbA1c 03/27/22 * HgbA1c 06/25/22 [facility] Future App[facility]ments Appointment Date:01/26/2023 08:00:00 AM Scheduled Provider: Location:[facility] Appointment Type:FM Medicare Wellness Subsequent Appointment Date:01/27/2023 02:00:00 PM Scheduled Provider:Denton Castro DPM Location:[facility] Appointment Type:WC Follow Up Visit (FT) Appointment Date:02/02/2023 09:45:00 AM Scheduled Provider: Location:[facility] Appointment Type:Surgery FT Appointment Date:02/17/2023 08:45:00 AM Scheduled Provider:Gary Cerda MD Location:[facility] Appointment Type:Pain Management - Follow Up (FT) Appointment Date:03/12/2023 08:00:00 AM Scheduled Provider:Linda Solorio CNP Location:[facility] Appointment Type:BAD Follow Up Appointment Date:03/20/2023 09:00:00 AM Scheduled Provider:Christopher WELLS DO, FAAFP Location:[facility] Appointment Type:FM Open Future Scheduled Tests Laboratory* HgbA1c 03/27/22 * HgbA1c 06/25/22 [facility] Future App[facility]ments Appointment Date:01/27/2023 02:00:00 PM Scheduled Provider:Denton Castro DPM Location:[facility] Appointment Type:WC Follow Up Visit (FT) Appointment Date:02/02/2023 09:45:00 AM Scheduled Provider: Location:[facility] Appointment Type:Surgery FT Appointment Date:02/17/2023 08:45:00 AM Scheduled Provider:Gary Cerda MD [facility] Appointment Type:Pain Management - Follow Up (FT) Appointment Date:03/12/2023 08:00:00 AM Scheduled Provider:Linda Solorio CNP Location:[facility] Appointment Type:BAD Follow Up Appointment Date:03/20/2023 09:00:00 AM Scheduled Provider:Christopher WELLS DO, FAAFP Location:[facility] Appointment Type:FM Open Appointment Date:02/01/2024 08:00:00 AM Scheduled Provider: Location:[facility] Appointment Type:FM Medicare Wellness Subsequent Future Scheduled Tests Laboratory* HgbA1c 03/27/22 * HgbA1c 06/25/22 * HCV Antibody RFX to Quant PCR 01/26/23 [facility] Evaluation + Plan note Future Appointments Appointment Date:02/02/2023 09:45:00 AM Scheduled Provider: Location:[facility] Appointment Type:Surgery FT Appointment Date:02/10/2023 02:30:00 PM Scheduled Provider:Denton Castro DPM Location:[facility] Appointment Type:WC Follow Up Visit (FT) Appointment Date:02/17/2023 08:45:00 AM Scheduled Provider:Gary Cerda MD Location:[facility] Appointment Type:Pain Management - Follow Up (FT) Appointment Date:03/12/2023 08:00:00 AM Scheduled Provider:Linda Solorio CNP Location:[facility] Appointment Type:BADH Follow Up Appointment Date:03/20/2023 09:00:00 AM Scheduled Provider:Christopher WELLS DO, FAAFP Location:[facility] Appointment Type:FM Open Appointment Date:02/01/2024 08:00:00 AM Scheduled Provider: Location:[facility] Appointment Type:FM Medicare Wellness Subsequent Future Scheduled Tests Laboratory* HgbA1c 03/27/22 * HgbA1c 06/25/22 * HCV Antibody RFX to Quant PCR 01/26/23 [facility] Future App[facility]ments Appointment Date:02/16/2023 01:45:00 PM Scheduled Provider: Location:[facility] Appointment Type:WC Assessment (FT) Appointment Date:02/16/2023 02:15:00 PM Scheduled Provider: Location:[facility] Appointment Type:Surgery FT Appointment Date:02/24/2023 02:00:00 PM Scheduled Provider:Denton Castro DPM Location:[facility] Appointment Type:WC Follow Up Visit (FT) Appointment Date:03/02/2023 08:15:00 AM Scheduled Provider:Mara Pastor PA-C Location:[facility] Appointment Type:Pain Management - Follow Up (FT) Appointment Date:03/02/2023 09:40:00 AM Scheduled Provider:Linda Solorio CNP Location[facility] Appointment Type:BAD Follow Up Appointment Date:03/20/2023 09:00:00 AM Scheduled Provider:Christopher WELLS DO, FAAFP Location:[facility] Appointment Type:FM Open Appointment Date:02/01/2024 08:00:00 AM Scheduled Provider: Location:[facility] Appointment Type:FM Medicare Wellness Subsequent Future Scheduled Tests Laboratory* HgbA1c 03/27/22 * HgbA1c 06/25/22 * HCV Antibody RFX to Quant PCR 01/26/23 [facility] Future App[facility]ments Appointment Date:02/24/2023 02:00:00 PM Scheduled Provider:Denton Castro DPM Location:[facility] Appointment Type:WC Follow Up Visit (FT) Appointment Date:03/02/2023 09:40:00 AM Scheduled Provider:Linda Solorio CNP Location:[facility] Appointment Type:BAD Follow Up Appointment Date:03/04/2023 08:45:00 AM Scheduled Provider: Location:[facility] Appointment Type:Surgery FT Appointment Date:03/20/2023 09:00:00 AM Scheduled Provider:Christopher WELLS DO, FAAFP Location:[facility] Appointment Type: Open Appointment Date:03/23/2023 08:30:00 AM Scheduled Provider:Mara Pastor PA-C Location:[facility] Appointment Type:Pain Management - Follow Up (FT) Appointment Date:02/01/2024 08:00:00 AM Scheduled Provider: Location:[facility] Appointment Type: Medicare Wellness Subsequent Future Scheduled Tests Laboratory* HgbA1c 03/27/22 * HgbA1c 06/25/22 * HCV Antibody RFX to Quant PCR 01/26/23 [facility] Future Appointments Appointment Date:03/03/2023 02:30:00 PM Scheduled Provider:Denton Castro DPM Location:[facility] Appointment Type:WC Follow Up Visit (FT) Appointment Date:03/04/2023 08:45:00 AM Scheduled Provider: Location:[facility] Appointment Type:Surgery FT Appointment Date:03/20/2023 09:00:00 AM Scheduled Provider:Christopher WELLS DO, FAAFP Location:[facility] Appointment Type:FM Open Appointment Date:03/23/2023 08:30:00 AM Scheduled Provider:Mara Pastor PA-C [facility] Appointment Type:Pain Management - Follow Up (FT) Appointment Date:02/01/2024 08:00:00 AM Scheduled Provider: Location:[facility] Appointment Type: Medicare Wellness Subsequent Future Scheduled Tests Laboratory* HgbA1c 03/27/22 * HgbA1c 06/25/22 * HCV Antibody RFX to Quant PCR 01/26/23 [facility] Evaluation + Plan note Future Appointments Appointment Date:03/04/2023 08:45:00 AM Scheduled Provider: Location:[facility] Appointment Type:Surgery FT Appointment Date:03/20/2023 09:00:00 AM Scheduled Provider:Christopher WELLS DO, FAAFP Location:[facility] Appointment Type:FM Open Appointment Date:03/23/2023 08:30:00 AM Scheduled Provider:Mara Pastor PA-C [facility] Appointment Type:Pain Management - Follow Up (FT) Appointment Date:02/01/2024 08:00:00 AM Scheduled Provider: Location:[facility] Appointment Type: Medicare Wellness Subsequent Future Scheduled Tests Laboratory* HgbA1c 03/27/22 * HgbA1c 06/25/22 * HCV Antibody RFX to Quant PCR 01/26/23 [facility] Future App[facility]ments Appointment Date:03/23/2023 08:30:00 AM Scheduled Provider:Mara Pastor PA-C [facility] Appointment Type:Pain Management - Follow Up (FT) Appointment Date:07/28/2023 08:00:00 AM Scheduled Provider:Christopher WELLS DO, FAAFP Location:[facility] Appointment Type:FM Open Appointment Date:02/01/2024 08:00:00 AM Scheduled Provider: Location:[facility] Appointment Type: Medicare Wellness Subsequent Future Scheduled Tests Laboratory* HgbA1c 03/27/22 * HgbA1c 06/25/22 * HCV Antibody RFX to Quant PCR 01/26/23 [facility] Evaluation noteNo assessment information available [facility] Work Phone: Evaluation noteNo InformationNort PrepChamps Other Evaluation note* Diagnosis Atherosclerosis of [place] coronary artery of [place] heart without angina pectoris Status post coronary angioplasty Postsurgical percutaneous transluminal coronary angioplasty status Essential hypertension Unspecified essential hypertension Hyperlipidemia, unspecified hyperlipidemia type PVD (peripheral vascular disease) ([facility]) Unspecified peripheral vascular disease Stage 3 chronic kidney disease, unspecified whether stage 3a or 3b CKD ([facility]) Sleep apnea, unspecified type documented in this encounter [facility] Work Phone: History general Narrative - Reported* Type Description Date Medical History Obstructive sleep apnea (adult) (pediatric) Medical History Dependence on other enabling mac caruso and devices Medical History Blood clot in vein Medical History Essential hypertension Medical History Hyperlipidemia, unspecified hype rlipidemia type Medical History Type 2 diabetes dayanara itus without complication, without long-term current use of insulin Medical History PAD Surgical History colonoscopy Surgical History cholecystectomy Surgical History HYSTERECTOMY Surgical History heart stent 3 STENTS Hospitalization History see above [employer] Other History general Narrative - Reported* Type Description Date Medical History Obstructive sleep apnea (adult) (pediatric) Medical History Dependence on other enabling mac caruso and devices Medical History Blood clot in vein Medical History Essential hypertension Medical History Hyperlipidemia, unspecified hype rlipidemia type Medical History Type 2 diabetes dayanara itus without complication, without long-term current use of insulin Medical History PAD Surgical History colonoscopy Surgical History cholecystectomy Surgical History HYSTERECTOMY Surgical History heart stent 3 STENTS Surgical History LT LEG ANGIOPLASTY 03/2022 Hospitalization History see above [employer] Other Hospital course Narrative No data available for this section [facility] Hospital Discharge instructions No data available for this section [facility] Progress note No data available for this section [facility] Consultation (Routine) - Authorized Specialty Diagnoses / Procedures Referred By Fariha bautista Referred To Contact Cardiology Diagnoses Atherosclerosis of [place] coronary artery of [place] heart without angina pectoris Status post coronary angioplasty Essential hypertension Procedures Follow Up In Cardiology Fariha Guidry MD [address] [facility] [address] [place] [address] Fariha Guidry MD [address] [facility] [address] [place] [address] Referral ID Status Reason Start Date Expiration Date V isits Requested Visits Authorized [id number] Authorized 02/12/2023 02/12/2024 1 1 [facility] Work Phone: Chief Complaint * EVON CORCORAN is being seen for hypertension and BP Check. * Patient is in the office for hypertension management after amlodipine 5 mg daily was added to medical regimen. The changes resulted in complete control of hypertension without any significant side effects. The patient will be left on present medical therapy with no changes and follow-up with me in the office as scheduled * EVON CORCORAN is being seen for a 6-9 month follow-up of. * Patient is in the office for follow-up for the problems noted below. Since her last visit she has had no cardiac events whatsoever. She has sleep apnea but unfortunately has not been using the CPAP machine, encouraged the patient to utilize it on a nightly basis to avoid possible atrial fibrillation. Her weight increased 6 pounds from last visit something that I brought her attention. She has hadno need for nitroglycerin. Denies orthopnea PND or lower extremity edema. Her labs have been up-to-date and have been on target. * ASSESSMENT AND PLAN: * 1. Coronary artery disease with history of angioplasty in 2010 to the LAD and diagonal and again inMay 2018 to the LAD for total occlusion with no disease of significance noted otherwise. Nuclear stress test October 2020 was normal * 2. Obesity. Discussed with the patient the need to reduce calorie consumption and increase exerciseto bring BMI closer to target * 3. Dyslipidemia, currently on high intensity atorvastatin lipid profile is on target * 4. History of DVT on Xarelto 10 mg daily without any bleeding complications. * 5. Diabetes, managed by endocrinology in [place] [employer]. A1c remains above target * 6. Hypertension completely under control. * 7. High-risk medication with Xarelto, so far well-tolerated. Takes baby aspirin twice weekly * 8. Stage III chronic kidney disease to be monitored closely * 9. Recent diagnosis of intermittent claudications and PAD followed by vascular surgery Dr. Fredy Kaplan, she is currently going through walking exercise program * Fariha Guidry MD, [facility] Summary Purpose Family History Relationship Condition Age at Onset Recorded Date/T fátima father Coronary artery disease Unknown Not Specified Diabetes mellitus Unknown Malignant neoplasm of breast Unknown brother Diabetes mellitus Unknown sister Diabetes mellitus Unknown natural son Diabetes mellitus Unknown sister Malignant neoplasm of breast Unknown grandparent Malignant neoplasm of breast Unknown family member Malignant neoplasm of breast Unknown No Family History Records Found Advance Directives No Advanced Directives Records Found Advance Directive Response Recorded Date/ Time Advance Directives No May 21 1:23pm Advance Directive Response Recorded Date/ Time Advance Directives No May 21 2:23pm Chief Complaint and Reason for Visit Chief Complaint I70.213 Chief Complaint I70.213 PVD Chief Complaint I70.213 i70.212 Chief Complaint PVD Additional Source Comments Care Team (unrecognized sect ion and content) Team Status: Inactive Member Role Status Dates Christopher Wells DO Primary Care Provider Active Miguel Membreno MD Attending Provider Active Team Status: Active Member Role Status Dates Christopher Wells DO Primary Care Provider Active Team Status: Inactive Member Role Status Dates Christopher Wells DO Primary Care Provider Active BINU Flower 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 Relationship Specialty Start Date End Date Christopher Wells DO [address] [facility]- [address] [address] PCP - General 08/02/18 INFORMATION SOURCE (unrecogn ized section and content) DATE CREATED AUTHOR 01/16/2022 [facility] DATE CREATED AUTHOR AUTHOR'S ORGANIZ ATION 01/16/2022 [employer] DATE CREATED AUTHOR AUTHOR'S ORGANIZ ATION 09/19/2022 [facility] DATE CREATED AUTHOR AUTHOR'S ORGANIZ ATION 02/14/2023 [facility] DATE CREATED AUTHOR AUTHOR'S ORGANIZ ATION 02/28/2023 [facility] DATE CREATED AUTHOR AUTHOR'S ORGANIZ ATION 03/19/2023 [facility]IC DATE CREATED AUTHOR AUTHOR'S ORGANIZ ATION 03/24/2023 [facility] REASON FOR VISIT (unrecogniz ed section and content) Reason Comments Follow-up 6mo Goals (unrecognized section and content) Goals may be documented in a n alternate section FOR RECORDS PERTAINING TO PATIENTS WHO ARE OR HAVE BEEN ENROLLED IN A CHEMICAL DEPENDENCY/SUBSTANCEABUSE PROGRAM, SOME INFORMATION MAY BE OMITTED. This clinical summary was aggregated from multiple sources. Caution should be exercised in using it in the provision of clinical care. This summary normalizes information from multiple sources, and as a consequence, information in this document may materially change the coding, format and clinical context of patient data. In addition, data may be omitted in some cases. CLINICAL DECISIONS SHOULD BE BASED ON THE PRIMARY CLINICAL RECORDS. [employer] [facility]. provides no warranty or guarantee of the accuracy or completeness of information in this document.
[2023-03-31] MEDS: LIDOCAINE HCL 1% 100 MG/10 ML MDV INJ (13:45)
[2023-03-31] MEDS: 0.9 % SODIUM CHLORIDE 500 ML, LIDOCAINE HCL 20 ML, SODIUM BICARBONATE 10 MEQ INJ (13:45)
== END 2023-03-31 09:22 | disposition home or self-care (01) ==
LOC: VC 09:21
PROVIDERS: PCP Podiatrist Foot & Ankle Surgery; Visit Provider Radiology Diagnostic Radiology
DX: I83.813 Varicose veins of bilateral lower extremities with pain (principal)
CPT/HCPCS: 36478

== ENCOUNTER 2023-04-07 07:41 | Outpatient (OUT) | payer MEDICARE, BC, SELFPAY ==
--- NOTE | 2023-04-07 | VEIN_ITS ---
Patient Name: GEOVANNY CORCORAN MR#: [id number] : 1950 Exam Date: 04/07/2023 Ordering Doctor: DR GOMEZ SHER M.D. RADIOLOGY REPORT PROCEDURE: VC EXT VENOUS RT LMTD COMPARISON: None. INDICATIONS: Phlebitis of superficial vein of rt lower extremity I80.01 TECHNIQUE: Lower extremity freeman scale and Duplex Doppler evaluation of the deep venous system from the inguinal ligament through the calf veins. FINDINGS: REGION: Right lower extremity. THROMBI: Negative for DVT. Heat induced thrombus visualized 2.1cm from the SFJ. The heat induced thrombus extends from groin to medial knee. COMPRESSIBILITY: Non-compressible segments corresponding to thrombus FLOW: Areas of no flow corresponding to thrombus CONCLUSION: Post ablation occlusion of the right great saphenous vein with heat induced thrombus 2.1 cm from the saphenofemoral junction Dictated by: Gomez Sher MD on 04/07/2023 at 08:32 Approved by: Gomez Sher MD on 04/07/2023 at 08:33
--- NOTE | 2023-04-07 | VEIN_ITS ---
Patient Name: GEOVANNY CORCORAN MR#: [id number] : 1950 Exam Date: 04/07/2023 Ordering Doctor: DR GOMEZ SHER M.D. RADIOLOGY REPORT PROCEDURE: [facility] EST L[facility]D [facility] - OFFICE VISIT FOLLOW UP COMPARISON: None. PROGRESS NOTES: The patient reports no significant problems following intravenous laser ablation of the right great saphenous vein. The patient did not require oral analgesics. The patient did wear her compression stocking. The patient has tried exercise within the ability of the weather Physical exam demonstrates 3 areas of bruising in the medial right thigh likely related to tumescence injection the largest measuring 3 cm in diameter. The thrombosed right great saphenous vein can be palpated. No erythema or warmth to suggest cellulitis or thrombophlebitis. No active ulceration Review of the ultrasound performed the same day demonstrates occlusive thrombus extending throughout the treated right great saphenous vein with heat induced thrombus 2.1 cm from the saphenofemoral junction. The patient expressed a desire to proceed with treatment of incompetent left great saphenous vein. VEIN/[facility] EST LMTD IMPRESSION: 1. Successful ablation of the right great saphenous vein 2. Persistent incompetent left great saphenous vein. PLAN: Intravenous laser ablation left great saphenous vein Nurse notes, history and physical were reviewed and confirmed, see attached forms. The nurse was present throughout the physical exam and consultation Dictated by: Gomez Sher MD on 04/07/2023 at 08:36 Approved by: Gomez Sher MD on 04/07/2023 at 08:37
--- OUTSIDE RECORDS SUMMARY | 2023-04-07 07:56 | XMS_ITS | CCD ---
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 Name Role Phone Christopher Wells Unavailable Unavailable [...] Care Provider MD Miguel Membreno Attending Provider [phone] [facility] Attending Provider Christopher Wells DO Primary Care Provider [phone] FARIHA GUIDRY Attending Unavailable CHRISTOPHER WELLS Primary [...] e Christopher WELLS Referring Unavailable KAPLE, Christopher Montenegro Admitting Unavailable Osmin, Linda A Attending Unavailable [...] Unavailable Jakekina, Klaus Admitting Unavailable MD Gary eCrda Admitting Unavailable Gary Cerda Attending Unavailable Lindsey, Catrachito Jason Referring Unavailable Lindsey, Catrachito Jason Referring Unavailable Lindsey, Catrachito Gomez Attending Unavailable Lindsey, Catrachito D Admitting Unavailable KAPLE, Christopher A [...] Drug Allergy 023 Unknown (qualifier value), Diarrhea [facility] 250 DO Work Phone: (20 sources) hydroCHLOROthiazide; Translations: [hydroCHLOROthiazide CAPS] Drug Allergy 023 Diarrhea [facility] 250 DO Work Phone: (20 sources) hydroCHLOROthiazide / Spironolactone; Translations: [Aldactazide] Drug Allergy 023 Weal (disorder), Diarrhea [facility] 250 DO Work Phone: (20 sources) Lisinopril; Translations: [Zestril] Drug Allergy 023 Diarrhea (finding), Diarrhea [facility] 250 DO Work Phone: (20 sources) metFORMIN; Translations: [Glucophage] Drug Allergy 023 Diarrhea [facility] 250 DO Work Phone: (20 sources) valsartan; Translations: [Diovan] Drug Allergy 023 Unknown (qualifier value), Diarrhea [facility] 250 DO Work Phone: (20 sources) hydroCHLOROthiazide / Lisinopril; Translations: [hydrochlorothiazide-l isinopril] Drug Allergy Diarrhea (finding) [facility] (20 sources) Terazosin; Translations: [terazosin] Drug Allergy Unknown, Unknown Reaction [facility] (9 sources) metFORMIN Drug Allergy Unknown [facility] Other (7 sources) Doxazosin; Translations: [DOXAZOSIN] Drug Allergy Unknown Reaction [facility] (6 sources) hydroCHLOROthiazide; Translations: [HYDROCHLOROTHIAZIDE] Drug Allergy Unknown Reaction, Diarrhea [facility] (6 sources) Lisinopril; Translations: [LISINOPRIL] Drug Allergy Unknown Reaction [facility] (6 sources) metFORMIN; Translations: [METFORMIN] Drug Allergy Unknown Reaction, Diarrhea [facility] (5 sources) pioglitazone; Translations: [pioglitazone] Drug Allergy Unknown Reaction [facility] (5 sources) Spironolactone; Translations: [spironolactone] Drug Allergy Unknown Reaction, Hives [facility] (6 sources) valsartan; Translations: [VALSARTAN] Drug Allergy Unknown Reaction [facility] (1 source) SPIRONOLACTON-HYDROCHL OROTHIAZ; Translations: [SPIRONOLACTON-HYDROCH LOROTHIAZ] Propensity to adverse reactions to drug (disorder) [address] [place] [address] Repository (1 source) Terazosin Drug Allergy 023 [facility] Repository (1 source) Lisinopril; Translations: [Prinivil] Drug Allergy [facility] Repository Medications Current Medications Medication Drug Class(es) [...] 90 tab(s), Refills(s) 3, [facility]: [facility] #[id number], 166, cm, 10/28/21 9:59:00 EDT, Height/Length Dosing, [...] Bedtime, # 90 tab(s), Refills(s) 1, Pharmacy: [facility] #[id number], 165, cm, 09/10/22 8:16:00 EDT, Height/Length Dosing, 97.4, kg, 09/10/22 8:16:00 EDT, Weight Dosing Start Date: 10/27/22 Status: Ordered cilostazol 50 mg oral tablet (10 sources) Phosphodiesterase 3 Inhibitor Start: 2021 take 1 tablet by mouth twice daily Pletal 50 mg oral tablet 50 mg = 1 tab(s), Oral, BID, # 60 tab(s), Refills(s) 5, Pharmacy: [facility] #[id number], 165, cm, 09/24/21 8:39:00 EDT, Height/Length Dosing, [...] 20 cap(s), Refills(s) 1, [facility]: [facility] #[id number], 165, cm, 12/18/22 8:28:00 EDT, Height/Length Dosing, [...] Directions: Test BID, [facility], [place], 166, cm, 05/10/21 8:27:00 EST, Height/Length Dosing, 92.8, kg, 05/10/21 8:27:00 EST, Weight Dosing Start Date: 05/10/21 Status: Ordered 3 ml insulin degludec 100 unt/ml pen injector (20 sources) Insulin Analog Start: 08-22-2022 inject 50 [IU] by subcutaneous injection once daily Tresiba FlexTouch 100 units/mL subcutaneous solution 50 unit(s), SubCutaneous, Daily, Dx E11.65, # 5 EA, Refills(s) 11, [facility]: [facility] #[id number], 165, cm, 06/11/22 9:10:00 EDT, Height/Length Dosing, 97.6, kg, 06/11/22 9:10:00 EDT, Weight Dosing Start Date: 08/22/22 Status: Ordered Start: 08-22-2022 inject 30 [IU] by griffin bcutaneous injection twice daily Tresiba FlexTouch 100 units/mL subcutaneous solution 30 unit(s), SubCutaneous, BID, Dx E11.65, # 5 EA, Refills(s) 11, Pharmacy: [facility] #[id number], 165, cm, 06/11/22 9:10:00 EDT, Height/Length Dosing, 97.6, kg, 06/11/22 9:10:00 EDT, Weight Dosing Start Date: 08/22/22 Status: Ordered Start: 09-24-2021 inject 30 [IU] by griffin bcutaneous injection twice daily Tresiba FlexTouch 100 units/mL subcutaneous solution 30 unit(s), SubCutaneous, BID, Dx E11.65, # 5 EA, Refills(s) 11, Pharmacy: [facility], 165, cm, 09/24/21 8:39:00 EDT, Height/Length Dosing, 95.3, kg, 09/24/21 8:39:00 EDT, Weight Dosing Start Date: 09/24/21 Status: Ordered Start: 05-10-2021 inject 50 [IU] by griffin bcutaneous injection at bedtime Tresiba FlexTouch 100 units/mL subcutaneous solution 50 unit(s), SubCutaneous, Bedtime, Dx E11.65, # 5 EA, Refills(s) 11, Pharmacy: [facility], 166, cm, 05/10/21 8:27:00 EST, [...] 0.4 MG Sublingual Active polyethylene glycol 3350 862038 mg / potassium chloride 1480 mg / sodium bicarbonate 5720 mg / sodium chloride 44508 mg powder for oral solution (1 source) Osmotic Laxative Start: 05-05-2022 NuLYTELY Sara ry oral powder for reconstitution See Instructions, 1 EA, Refill(s) 0, Prior to colonoscopy., [facility] #[id number], 165, cm, 05/05/22 13:40:00 EST, Height/Length Dosing, [...] 05, 2018 11:00pm Has been instructed by [facility] to stop 2 days before heart cath Start: 08-06-2018 take 20 mg by mouth once daily Rivaroxaban Active 20 MG PO Every evening August 06, 2018 12:00am Has been instructed by [facility] to stop 2 days before heart cath [...] capsule Indications: Mixed hyperlipidemia , Atherosclerosis of [place] coronary artery of [place] heart without angina pectoris TAKE 1 CAPSULE BY MOUTH TWICE A DAY 180 capsule 3 01/19/2023 Active Start: 04-07-2022 End: 02-18-2023 Coenzyme Q10 Discontinued PO Daily April 07, 2022 12:00am February 18, 2023 9:26am Start: 11-12-2021 take 1 capsule by [facility] twice daily CoQ10 100 MG Oral Capsule [...] 90 cap(s), Refills(s) 3, [facility]acy: [facility] #[id number], 165, cm, 05/21/22 12:25:00 EST, Height/Length Dosing, 95.2, kg, 05/21/22 12:25:00 EST, Weight Dosing Start Date: 05/26/22 Status: Ordered Start: 04-17-2021 take 1 capsule by [facility] once daily potassium chloride 10 mEq Cap-ER [...] sources) Coronary atherosclerosis; Translations: [Coronary atherosclerosis of [place] coronary artery] Onset: 09-18-19 23 09-11-2020 Chronic Coronary atherosclerosis and other heart disease (16 sources) Past history of procedure; Translations: [Percutaneous transluminal coronary angioplasty status] Onset: 01-10-20 23 02-12-2023 Episodic Coronary atherosclerosis and other heart disease (3 sources) Coronary atherosclerosis and other heart disease; Translations: [Atherosclerosis of [place] arteries of left leg with ulceration of [...] limb due to atherosclerosis; Translations: [Atherosclerosis of [place] arteries of extremities with gangrene, left leg] [...] medications] Episodic Other aftercare (1 source) 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; Translations: [Other senior living (current) drug therapy] Onset: 09-18-19 Episodic Other aftercare (1 source) Long-term current use of drug therapy; Translations: [Other senior living (current) drug therapy] Onset: 01-27-20 Episodic Other aftercare (1 source) Long-term current use of anticoagulant; Translations: [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] Onset: 01-27-20 Episodic Other aftercare (2 sources) Long-term current use of insulin; Translations: [correction (current) use of insulin] Onset: 01-27-20 Episodic [...] ity Consent for Treatmenton Consent for Treatment [id number]#1.00T IFF Normal [facility] Consultation Noteon 03-23-19 Consultation Note Patient: EVON [...] 11, Dx: E11.9 Directions: BID, [facility] #[id number], Supply, 165, cm, 06/11/22 9:10:00 EDT, Height/Length Dosing, 97.6, kg, 06/11/22 9:10:00 EDT, Weight Dosing Tresiba FlexTouch 100 units/mL subcutaneous solution: 50 unit(s), SubCutaneous, Daily, Dx E11.65, # 5 EA, Refills(s) 11, Pharmacy: [facility] #[id number], 165, cm, 06/11/22 9:10:00 EDT, Height/Length Dosing, 97.6, kg, 06/11/22 9:10:00 EDT, Weight Dosing chlorthalidone 25 mg Tab: 25 mg = 1 tab(s), Oral, Bedtime, # 90 tab(s), Refills(s) 1, Pharmacy: [facility] #[id number], 165, cm, 09/10/22 8:16:00 EDT, Height/Length Dosing, 97.4, kg, 09/10/22 8:16:00 EDT, Weight Dosing potassium chloride 10 mEq Cap-ER: 10 mEq = 1 cap(s), Oral, Daily, # 90 cap(s), Refills(s) 3, [facility]acy: [facility] #[id number], 165, cm, 05/21/22 12:25:00 EST, Height/Length Dosing, [...] Problems HTN - Hypertension / SNOMED CT 7582216709 / Confirmed Familial hypercholesteremia / SNOMED CT 7140140165 / Confirmed Non-smoker / SNOMED CT 82949036 / Confirmed CAD in [place] artery / SNOMED CT 78681065 / Confirmed History of DVT in adulthood / SNOMED CT 7661468210 / Confirmed Type 2 diabetes mellitus with hypercholesterolemia / SNOMED CT 088999725 / Confirmed linked DM with hypercholesterolemia per outpatient CDI policy. Type 2 diabetes mellitus with stage 3 chronic kidney disease / SNOMED CT 133026290 / Confirmed linked DM with CKD per outpatient CDI policy. Mild nonproliferative diabetic retinopathy of both eyes / SNOMED CT 342316817 / Confirmed noted in 08/21/2019 Diabetic Eye Exam. added per outpatient CDI policy. 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 Normal [facility] Comment on above: Result Comment: Elec tronically Signed By: Dawit BARTH, Mara\.br\Date and Time Signed: 03/23/23 09:07 EST Legal Correspondence Officeo n 03-23-2023 Legal Correspondence Office [id number]#1.00 TIFF Normal [facility] Office/Clinic Note-Physician on 03-23-2023 Office/Clinic Note-Physician [id number]#1.00 TIFF Normal [facility] Patient Correspondenceon Patient Correspondence [id number]#1.00 TIFF Normal [facility] Patient Correspondence [id number]#1.00 TIFF Normal [facility] Patient Correspondence [id number]#1.00 TIFF Normal [facility] Patient Correspondence [id number]#1.00 TIFF Normal [facility] Patient History Officeon Patient History Office [id number]#1.00 TIFF Carlos Elkins [facility] Family Medicine Office/Clini c Noteon [...] re: potential procedure: Clinically currently asymptomatic and xup-rcez-ycikswtxrnp. Please see Dr. Castro's consultation 2. BMI [...] and exercise. 4. Long-term insulin use (Z79.4: correction (current) use of insulin) Dr Benz following. 5. Mild nonproliferative diabetic retinopathy of both eyes (E11.3293: Type 2 diabetes mellitus with mild nonproliferative diabetic retinopathy without macular edema, bilateral) Follow-up with supplies packer 6. Type 2 diabetes mellitus with hypercholesterolemia (E11.69: Type 2 diabetes mellitus with other specified complication) Tresiba 50 units SQ every morning with sliding scale per med rec per Dr. Salter. Continue losartan: Sugars improved, surveillance A1c's per Dr. Ruggiero 7. Type 2 diabetes mellitus with stage (more content not included)... Normal [facility] Comment on above: Result Comment: Elec tronically [...] plan? Your health care provider or certified wellness program manager can help you make a plan for [...] stroke). Where to find more information ? [place] [employer]: www.diabetes.org Summary ? Exercising regularly is important for overall health, especially for people who have diabetes mellitus. ? Exercising has many health benefits. It increases muscle strength and bone density and reduces body fat and stress. It also lowers and controls blood glucose. ? Your health care provider or certified wellness program manager can help you make an activity plan [...] provider. Document Revised: 11/28/2019 Document Reviewed: 11/28/2019 [employer] Patient Education ? 2022 [employer]. Normal [facility] Nursing Note - Woundon 03-19 Nursing Note - Wound [id number]#2.00 TIFF [facility] Consultation Noteon 03-07-20 23 Consultation Note [id number]#1.00T IFF [facility] CHEMISTRYOrdered By: Lab ROP User on 03-04-2023 Glucose [Mass/Vol] 78 mg/dL Normal 55 - 99 mg/dL FT C POC Subsection POC Device SN [id number] 1 Invalid Interpretation Code [facility] POC Subsection POC Username MACIE POTTS Invalid Interpretation Code [facility] POC Subsection Sodium [Moles/Vol] [id number] mmol/L Invalid Interpretation Code [facility] POC Subsection Capillary Glucose POCon 02-14 Glucose [Mass/Vol] 78 mg/dL Normal 55-99 [facility] Comment on above: Performed By: #### 2 [id number] #### [facility] Laboratory [address] [place] [address] Consent for Procedure/Surger yon 03-04-2023 Consent for Procedure/Surgery [id number]#1.00 TIFF Normal [facility] Consent for Treatmenton 02-14 Consent for Treatment [id number]#1.00T IFF Normal [facility] Discharge Instructionson Discharge Instructions [id number]#1.00 TIFF Normal [facility] Insurance Correspondenceon 05-05-2022 Insurance Correspondence [id number]#1.00 TIFF Normal [facility] IntraOperative Documentson 05-05-2022 IntraOperative Documents [id number]#1.00 TIFF [facility] Main OR Intraoperative Recor don 03-04-2023 Main OR Intraoperative Record IntraOp Document Type FTPM Summary Primary Physician: Nicola Tapia DO Finalized Date/Time: 03/04/23 09:06:01 Pt. Name: NILOEVON/Sex: 1950 Female Med Rec #: [id number] Physician: Nicola Tapia DO Financial #: [id number] Pt. Type: P Room/Bed: / Admit/Disch: 03/04/23 07:48:24 - Institution: Case Times FTPM Entry 1 Patient Times In Room 03/04/23 09:01:00 Out Room 03/04/23 09:06:00 Procedure Times Start 03/04/23 09:04:00 Stop 03/04/23 09:05:00 Anesthesia Times Last Modified By: Crow ECHAVARRIA, Estrellita Thompson 03/04/23 09:05:48 Case Attendance FTPM Entry 1 Entry 2 Entry 3 Case Attendee Nicola Tapia DO, RN, Estrellita Armstrong RN, [facility] Role Performed Surgeon - Primary Manager Fine Dining - Primary Scrub - Primary Time In 03/04/23 09:01:00 03/04/23 09:01:00 03/04/23 09:01:00 Time Out 03/04/23 09:06:00 03/04/23 09:06:00 03/04/23 09:06:00 Procedure HIP INJECTION(Left) HIP INJECTION(Left) HIP INJECTION(Left) Comments Last Modified By: Estrellita Maria RN, RN, Estrellita Ryder RN 03/04/23 09:05:56 03/04/23 09:05:56 03/04/23 09:05:56 Entry 4 Case Attendee Ervin Mckeon Role Performed Linux Administrator Time In 03/04/23 09:01:00 Time Out 03/04/23 [...] and tissue Entry 1 Skin Integrity Intact, [place], Warm, and Skin Abnormality No Dry Outcomes [...] injury related (more content not included)... Normal [facility] Main OR Preoperative Recordo n 03-04-2023 Main OR Preoperative Record Holding Area Document Type FTPM Summary Primary Physician: Nicola Tapia DO Finalized Date/Time: 03/04/23 08:19:34 Pt. Name: EVON CORCORAN/Sex: 1950 Female Med Rec #: [id number] Physician: Nicola Tapia DO Financial #: [id number] Pt. Type: P Room/Bed: / Admit/Disch: 03/04/23 [...] Signed By: Macie Potts RN 03/04/23 08:19 [facility] Consent for Treatmenton 02-13 Consent for Treatment [id number]#1.00T IFF Normal [facility] Multi-Wound Charton 03-03-20 Multi-Wound Chart [id number]#1.00 TIFF Normal [facility] Nursing Assessment - Woundon 12-19-2023 Nursing Assessment - Wound [id number]#1.00 TIFF [facility] Physician Orderon 03-03-2023 Physician Order [id number]#1.00 TIFF [facility] Progress Note - Woundon 02-13 Progress Note - Wound [id number]#1.00 TIFF [facility] Correspondence - Woundon Correspondence - Wound [id number]#1.00 TIFF [facility] Consent for Procedure/Surger yon 02-24-2023 Consent for Procedure/Surgery [id number]#1.0 0TIFF [facility] Consent for Treatmenton 02-13 Consent for Treatment [id number]#1.00T IFF [facility] Multi-Wound Charton 02-25-20 Multi-Wound Chart [id number]#1.00 TIFF [facility] Nursing Assessment - Woundon 02-24-2023 Nursing Assessment - Wound [id number]#1.00 TIFF [facility] Nursing Note - Woundon 02-24 Nursing Note - Wound [id number]#1.00 TIFF [facility] Physician Orderon 02-24-2023 Physician Order [id number]#1.00 TIFF [facility] Procedure - Woundon 02-25-20 Procedure - Wound [id number]#1.00 TIFF [facility] Progress Note - Woundon 02-13 Progress Note - Wound [id number]#1.00 TIFF Normal [facility] Retail - Clinical Noteon Retail - Clinical Note [id number]#1.00T IFF Normal [facility] US venous mapping BI loweron 02-19-2023 US venous mapping BI [facility] [place] [address] Ultrasound Report Signed Patient: Evon Corcoran MR#: [id number] : 1950 Acct:[id number] Age/Sex: 72 / F ADM Date: 02/18/23 Loc: Room: Type: [facility] Attending Dr: Miguel Membreno MD Ordering Provider: [...] Miguel Membreno M.D.02/19/2023 1:30 PM [facility] Tech: Isabell Duarte Transcribed By: RICH 02/19/23 1330 Dictated By: Miguel Membreno MD 02/19/23 1327 Signed By: 02/19/23 1330 [facility] Blood Urea Nitrogenon 2022 Urea nitrogen [Mass/Vol] 25 mg/dL Normal 7-25 [facility] Comment on above: Performed By: #### C REAT, BUN #### [facility] [address] Creatinineon 02-18-2023 Creatinine [Mass/Vol] 1.18 mg/dL Normal 0.60-1.20 [facility] Comment on above: Performed By: #### C REAT, BUN #### [facility] [address] [place] [address] [place] Creatinine Clr Calc Pharmacy 49.07 [facility] Comment on above: Result Comment: PERF ORMED BY: [place] [address] PATHOLOGIST LEAKAGE TESTER AIRAM ROMEO M.D. Performed By: #### C REMAY BUN #### [facility] [address] [place] [address] GFR/1.73 sq M.predicted MDRD (S/P/Bld) [Vol rate/Area] 48.770 mL/min/{1.73_m2} Normal [facility] Comment on above: Performed By: #### C REMAY, BUN #### [facility] [address] [place] [address] Creatinine [Mass/volume] in Serum or PlasmaOrdered By: Miguel Membreno on 02-18-2023 Creatinine [Mass/Vol] 1.18 mg/dL 0.60-1.20 [facility] Lab Reportson 02-18-2023 Lab Reports [id number]#1.00T IFF Normal [facility] No Panel InformationOrdered By: Miguel Membreno on 02-18-2023 Estimated GFR (CKD-EPI) 48.770 mL/Min [facility] Creatinine Clearance (Chem 49.07 [facility] Operative Reporton Operative Report [id number]#1.00T IFF Normal [facility] Retail - Clinical Noteon Retail - Clinical Note [id number]#1.00T IFF Normal [facility] Retail - Clinical Note [id number]#1.00T IFF [facility] Urea nitrogen [Mass/volume] in Serum or PlasmaOrdered By: Miguel Membreno on 02-18-2023 Urea nitrogen [Mass/Vol] 25 mg/dL 10-07 [facility] Insurance Correspondenceon 1 04-20-2022 Insurance Correspondence [id number]#1.00 TIFF [facility] Physician Orderon 02-17-2023 Physician Order [id number]#1.00 [facility] CHEMISTRYOrdered By: Lab ROP User on 02-16-2023 Glucose [Mass/Vol] 311 mg/dL High 55 - 99 mg/dL [facility] C POC Subsection POC Device SN [id number] Invalid Interpretation Code [facility] POC Subsection POC Username RONI CHOWDHURY Invalid Interpretation Code [facility] POC Subsection Sodium [Moles/Vol] [id number] mmol/L Invalid Interpretation Code [facility] POC Subsection Capillary Glucose POCon Glucose [Mass/Vol] 311 mg/dL High 55-99 [facility] Comment on above: Performed By: #### 2 [id number] #### [facility] Laboratory [address] [place] [address] Consent for Treatmenton Consent for Treatment [id number]#1.00T IFF [facility] Consent for Treatment [id number]#1.00T IFF [facility] Main OR Preoperative Recordo n 02-16-2023 Main OR Preoperative Record Holding Area Document Type FT Summary Primary Physician: Gary Cerda MD Finalized Date/Time: 02/16/23 13:36:16 Pt. Name: EVON CORCORAN /Sex: 1950 Female Med Rec #: [id number] Physician: Gary Cerda MD Financial #: [id number] Pt. Type: P Room/Bed: / Admit/Disch: 02/16/23 [...] 13:19 Bertha Chowdhury RN 02/16/23 13:36 Normal [facility] Multi-Wound Charton 02-17-20 Multi-Wound Chart [id number]#1.00 TIFF Normal [facility] Nursing Assessment - Woundon 02-16-2023 Nursing Assessment - Wound [id number]#1.00 TIFF Normal [facility] Nursing Note - Woundon 02-16 Nursing Note - Wound [id number]#1.00 TIFF Normal [facility] Patient Correspondenceon Patient Correspondence [id number]#1.00T IFF [facility] Consent for Procedure/Surger yon 02-10-2023 Consent for Procedure/Surgery [id number]#1.00 TIFF [facility] Consent for Treatmenton 01-15 Consent for Treatment [id number]#1.00T IFF [facility] Multi-Wound Charton 02-11-20 Multi-Wound Chart [id number]#1.00 TIFF [facility] Nursing Assessment - Woundon 02-10-2023 Nursing Assessment - Wound [id number]#1.00 TIFF [facility] Nursing Note - Woundon 02-10 Nursing Note - Wound [id number]#1.00 TIFF Normal [facility] Physician Orderon 02-10-2023 Physician Order [id number]#1.00 TIFF [facility] Procedure - Woundon 02-11-20 Procedure - Wound [id number] 102 [id number]#1.00 TIFF [facility] Progress Note - Woundon 01-15 Progress Note - Wound [id number]#1.00 TIFF [facility] Insurance Correspondenceon 04-05-2022 Insurance Correspondence [id number]#1.00 TIFF [facility] Insurance Correspondenceon 04-04-2022 Insurance Correspondence [id number]#1.00 TIFF [facility] Patient Letter [facility]2022 Patient Letter [facility] January 29, 2023 EVON CORCORAN [address] [place] [address] TAMARASARMADEVON L 1950 We are pleased that [...] in the following areas: ? Assign a [employer] Administrator who will work with you to help [...] phone contact on 02/19/2023 at 08:00 AM. [facility] [employer] Administrator [phone] opt. #2 [facility] Consent for Procedure/Surger yon 01-27-2023 Consent for Procedure/Surgery [id number]#1.00 TIFF [facility] Consent for Treatmenton 01-14 Consent for Treatment [id number]#1.00T IFF [facility] Multi-Wound Charton 01-28-20 Multi-Wound Chart [id number] 102 [id number]#1.00 TIFF [facility] Nursing Assessment - Woundon 01-27-2023 Nursing Assessment - Wound [id number]#1.00 TIFF [facility] Nursing Note - Woundon 01-27 Nursing Note - Wound [id number]#1.00 TIFF [facility] Physician Orderon 01-27-2023 Physician Order [id number] 102 [id number]#1.00 TIFF [facility] Procedure - Woundon 01-28-20 Procedure - Wound [id number] 102 [id number]#1.00 TIFF [facility] Progress Note - Woundon 01-14 Progress Note - Wound [id number]#1.00 TIFF [facility] Ambulatory Visit Summaryon 03-28-2022 Ambulatory [...] With: Denton Castro DPM Where: [facility] [place] Thursday 9:45 AM EST With: Where: [facility] Thursday 8:45 AM EST With: Gary Cerda MD Where: [facility] 2022 8:00 AM EST With: Linda Solorio CNP Where: [facility] Invalid Interpretation Code [address], [facility] [address]- \.br\ Thursday 8:00 AM EST \.br\ With:\.br\ Where: [facility] Primary Care [facility] Family Medicine Office/Clini c Noteon 01-26-2023 Family [...] Labs were ordered, to be completed with [facility]. Mammogram and DEXA scan up to date, [...] as directed. 3. Long-term insulin use (Z79.4: correction (current) use of insulin) Patient voices understanding with proper use of insulin dosage. Follows up with labs, DM supplies and dosage adjustments as needed. Reviewed available sites that can be used to administer Insulin, patient voices understanding. Will continue as directed. 4. Chronic renal impairment, stage 3a (N18.31: Chronic kidney disease, stage 3a) Follows with [employer], Dr. Núñez. Encouraged with avoiding NSAID's. Healthy Kidney Nutritional education material provided. Goals to keep blood sugars and blood pressure under better control to reduce cardiovascular risk factors. Medications and blood work monitored with visits. Continues taking statin medication daily. 5. On statin therapy (Z79.899: Other senior living (current) drug therapy) Taking Atorvastatin daily, encouraged to eat a diet that is low in saturated fats. Stressed importance of loosing weight as being overweight does produce more lipids. Risks may also increase with a family history of hyperlipidemia. Encouraged with healthy dietary choices to reduce risk factors associated with CVA. Will continue to follow up with labs as directed. 6. 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 Hand (more content not included)... [facility] Comment on above: Result Comment: Elec tronically Signed By: Christopher WELLS DO, FAAFP\.br\Date and Time Signed: 01/26/23 17:15 EST\.br\Electronically Co-Signed By: Lesly West LPN\.br\Date and Time Co-Signed: 01/26/23 09:21 EST Nursing Assessment - Woundon 01-26-2023 Nursing Assessment - Wound [id number]#2.00 TIFF [facility] Nursing Note - Woundon 01-26 Nursing Note - Wound [id number]#2.00 TIFF [facility] Patient Educationon 01-27-20 23 Patient Education [facility] Fall Prevention in the Home, Adult Falls [...] Keep items that you use often in pnmq-xa-odkoh places. Lower the shelves around your home [...] the way. ? Do not use floor omani or wax that makes floors slippery. What [...] Control and Prevention, [place]: www.cdc.gov ? National [place] on Aging: www.[place].nih.gov Contact a doctor [...] provider. Document Revised: 12/02/2021 Document Reviewed: 10/03/2020 [employer] Patient Education ? 2022 [employer]. Endocrinology Diabetes Melli (more content not included)... [facility] Screenson 01-26-2023 Screens [id number] [id number]#1.00TI FF [facility] Multi-Wound Charton 01-24-20 23 Multi-Wound Chart [id number] 105 [id number]#1.00 TIFF [facility] Physician Orderon 01-23-2023 Physician Order [id number] 105 [id number]#1.00 TIFF [facility] Consent for Treatmenton Consent for Treatment [id number]#1.00T IFF [facility] Consent for Procedure/Surger yon 01-14-2023 Consent for Procedure/Surgery [id number]#1.00 TIFF [facility] Consent for Procedure/Surgery [id number]#1.00 TIFF [facility] Nursing Assessment - Woundon 01-14-2023 Nursing Assessment - Wound [id number]#1.00 TIFF Normal [facility] Nursing Note - Woundon 01-14 Nursing Note - Wound [id number]#2.00 TIFF Normal [facility] CHEMISTRYOrdered By: Cynthia Serrano se on 01-13-2023 HbA1c (Bld) [Mass fraction] 11.5 % High <=5.9% [facility] ChemAutoSS Consent for Treatmenton 12-16 Consent for Treatment [id number]#1.00T IFF Normal [facility] Consent to Photographon 12-16 Consent to Photograph [id number]#1.00T IFF Normal [facility] Correspondence - Woundon Correspondence - Wound [id number]#1.00T IFF Normal [facility] Correspondence - Wound [id number]#1.00T IFF Normal [facility] Correspondence - Wound [id number]#1.00T IFF Normal [facility] SzqL0dvs 01-13-2023 HbA1c (Bld) [Mass fraction] 11.5 % High <=5.9 [facility] Comment on above: Performed By: #### 1 [id number] #### [facility] Laboratory [address] [place] [address] Multi-Wound Charton 01-14-20 Multi-Wound Chart [id number] 002 [id number]#1.00 [facility] 01-13-2023 Nursing Assessment - Wound [id number]#1.00 TIFF Normal [facility] Outside Recordson 01-13-2023 Outside Records [id number] 231 [id number]#1.00T IFF Normal [facility] Patient Correspondenceon Patient Correspondence [id number]#1.00 TIFF Normal [facility] Physician Orderon 01-13-2023 Physician Order [id number] 002 [id number]#1.00 TIFF Normal [facility] Procedure - Woundon 01-14-20 Procedure - Wound [id number] 002 [id number]#1.00 TIFF Normal [facility] Progress Note - Woundon 12-16 Progress Note - Wound [id number]#1.00 TIFF Normal [facility] Insurance Correspondenceon Insurance Correspondence [id number]#1.0 0TIFF Normal [facility] Radiology Outside Office Genomics Scientist yon 01-07-2023 Radiology Outside Office Copy [id number]#1.00 TIFF Normal [facility] Consent for Treatmenton 12-15 Consent for Treatment [id number]#1.00T IFF Normal [facility] Consultation Noteon 01-07-20 Consultation Note Patient: EVON [...] red blood per rectum) / SNOMED CT 449570814 / Confirmed Breast cancer screening by mammogram / SNOMED CT 600487137 / Confirmed CAD in [place] artery / SNOMED CT 93214072 / Confirmed Change in bowel habits / SNOMED CT 803885620 / Confirmed Chronic renal impairment, stage 3a / SNOMED CT 2875312186 / Confirmed Claudication of both lower extremities / SNOMED CT 144544212 / Confirmed Colon polyp / SNOMED CT 732546694 / Confirmed Degenerative localized arthritis of hip / SNOMED CT 706104006 / Confirmed 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 / SNOMED CT 768873476 / Confirmed Diabetes / SNOMED CT 038211754 / Confirmed Diarrhea / SNOMED CT 540556936 / Confirmed Enthesopathy of left hip region / SNOMED CT 28592781 / Confirmed Familial hypercholesteremia / SNOMED CT 0352349855 / Confirmed Hemorrhoids / SNOMED CT 922899061 / Confirmed History of colon polyps / SNOMED CT 4216126089 / Confirmed History of DVT in adulthood / SNOMED CT 6141671239 / Confirmed HTN - Hypertension / SNOMED CT 8178433340 / Confirmed Hypertensive heart and chronic kidney disease without heart failure, with stage 1 through stage 4 chronic kidney disease, or unspecified chronic kidney disease / SNOMED CT 2382376265 / Confirmed noted in 12/10/2021 Nephrology Consult Note page 3. added per outpatient CDI policy. Long-term insulin use / SNOMED CT 2066306056 / Confirmed Current Medication List includes Tresiba. added per outpatient CDI policy. Lumbar disc herniation / SNOMED CT 001598989 / Confirmed Lumbar stenosis / SNOMED CT 09126939 / Confirmed Mild nonproliferative diabetic retinopathy of both eyes / SNOMED CT 403181187 / Confirmed noted in 08/21/2019 Diabetic Eye Exam. added per outpatient CDI policy. Morbid obesity / SNOMED CT 349478075 / Confirmed Non-smoker / SNOMED CT 68050581 / Confirmed Primary ovarian failure / SNOMED CT 831342280 / Confirmed Sleep apnea / SNOMED CT 089641127 / Confirmed Type 2 diabetes mellitus with hypercholesterolemia / SNOMED CT 666846679 / Confirmed linked DM with hypercholesterolemia per outpatient CDI policy. Type 2 diabetes mellitus with stage 3 chronic kidney disease / SNOMED CT 388668385 / Confirmed linked DM with CKD (more content not included)... Normal [facility] Comment on above: Result Comment: Elec tronically Signed By: Prashant PIMENTEL, Gary Damon.br\Date and Time Signed: 01/06/23 09:13 EDT HIPAA Forms Officeon 023 HIPAA Forms Office [id number] [facility] [id number]#1.00 TIFF Normal [facility] Legal Correspondence Officeo n 01-06-2023 Legal Correspondence Office [id number]#1.00 TIFF Normal [facility] Legal Correspondence Office [id number]#1.00 TIFF Normal [facility] Office/Clinic Note-Physician on 01-06-2023 Office/Clinic Note-Physician [id number]#1.00 TIFF Normal [facility] Patient Correspondenceon Patient Correspondence [id number]#1.00 TIFF Normal [facility] Patient Correspondence [id number]#1.00 TIFF Normal [facility] Patient Correspondence [id number]#1.00 TIFF Normal [facility] Patient Correspondence [id number]#1.00 TIFF Normal [facility] Patient Correspondence [id number]#1.00 TIFF Normal [facility] Patient History Officeon Patient History Office [id number]#1.00 TIFF Normal [facility] Radiology Outside Office Genomics Scientist yon 01-06-2023 Radiology Outside Office Copy [id number]#1.00 TIFF Normal [facility] Consent for Treatmenton 12-14 Consent for Treatment [id number]#1.00T IFF Normal [facility] MRI Pelvis (Bony) w/o contra ston 12-31-2022 [...] MD Transcribed by: KATEY Technologist: NUBIA Normal [facility] RAD - MRI Screening Formon 1 RAD - MRI Screening Form [id number]#1.00 TIFF Normal [facility] Physician Orderon 12-24-2022 Physician Order [id number]#1.00T IFF Normal [facility] Physician Order [id number]#1.00T IFF Normal [facility] Outside Records Officeon Outside Records Office [id number]#1.00 TIFF Normal [facility] Referrals Officeon Referrals Office [id number] 021 [id number]#1.00 TIFF [facility] Consultation Noteon 12-23-19 Consultation Note [id number] 002 [id number]#1.00T IFF [facility] Physician Orderon 12-22-2022 Physician Order [id number] [id number]#1.00 TIFF [facility] Ambulatory Visit Summaryon 1 Ambulatory Visit Summary EVON CORCORAN Brent :1950 Visit Date:12/18/2022 Ambulatory Visit Instructions Your Diagnosis Enthesopathy of left hip region Hypertensive heart and chronic kidney disease without heart failure, with stage 1 through stage 4 chronic kidney disease, or unspecified chronic kidney disease Long-term insulin use BMI 36.0-36.9,adult Morbid obesity Chronic renal impairment, stage 3a 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 [...] Appointments Thursday 8:00 AM EST With: Where: [facility] Primary Care Normal [address] [place] [address]- \.br\ You Need to Schedule the Following Appointments\.br\ Follow Up with LIBAN SHEPHERD FAAFP, CHERISE Estrada, BENJAMIN When: In 3 months\.br\ Where:\.br\ [address]\ [place] [address].br\ \.br\ Medications\.br\ What How Much When Why Instructions\.br\ New doxycycline (doxycycline hyclate 100 mg Cap) 1 Capsules By Mouth 2 times a day Venous stasis ulcer Refills: 1 Pickup at [facility] #[id number]\.br\ Unchanged amlodipine (amLODIPine 5 mg Tab) 1 [...] instructions Dx: E11.9 Directions: BID \.br\ Unchanged [facility] Prescription (Test strips) See instructions Dx: E11.9 [...] Mouth Every day\.br\ Pharmacy Information\.br\ [id number]: [address] [place], [place] [phone]\.br\ Medications and Immunizations Administered\.br\ Not Given\.br\ influenza virus vaccine, inactivated, Patient Refuses\.br\ Allergies\.br\ Aldactazide (Hives)\.br\ Cardura (Unknown)\.br\ Diovan (Unknown)\.br\ Glucophage\.br\ Hytrin\.br\ Prinivil\.br\ Zestril (Diarrhea)\.br\ hydrochlorothiazi de-lisinopril (Diarrhea)\.br\ Problems\.br\ Ongoing - Any problem that you are currently receiving treatment for.\.br\ BRBPR (bright red blood per rectum)\.br\ Breast cancer screening by mammogram\.br\ CAD in [place] artery\.br\ Change in bowel habits\.br\ Chronic renal [...] home:\.br\ Medicines\.br\ ? \.br\ Take or apply aozx-xet-dkymxaz and prescription medicines only as told by [...] cannot use soap and water, use hand lost charge card clerk.\.br\ ? \.br\ Change your bandage as told [...] for help if you feel david Elkins [facility] Family Medicine Office/Clini c Noteon [...] ER daily. 3. Long-term insulin use (Z79.4: correction (current) use of insulin) Tresiba 50 units [...] in 6 (more content not included)... Normal [facility] Comment on above: Result Comment: Elec tronically [...] at home: Medicines ? Take or apply rkau-hlo-kjkoijr and prescription medicines only as told by [...] cannot use soap and water, use hand lost charge card clerk. ? Change your bandage as told by [...] day for signs of infection. ? Take embm-ywf-ilsalzi and prescription medicines only as told by your doctor. ? Keep all follow-up visits as told by your doctor. This is important. This information is not intended to replace advice given to you by your health care provider. Make sure you discuss any questions you have with your health care provider. Document Revised: 12/26/2021 Document Reviewed: 12/26/2021 [employer] Patient Education ? 2022 [employer] Normal [facility] Consultation Noteon 12-16-19 Consultation Note [id number] 002 [id number]#1.00C D:127 Normal [facility] MRI Spine Lumbar w/o Contras ton 12-09-2022 [...] by: KATEY Technologist: NUBIA Technical Comments None [facility] Consent for Treatmenton 11-15 Consent for Treatment [id number]#1.00C D:127 [facility] RAD - MRI Screening Formon 0 12-08-2022 RAD - MRI Screening Form [id number]#1.00 CD:127 [facility] Physician Orderon 11-26-2022 Physician Order [id number]#1.00CD :127 [facility] Physician Order [id number]#1.00CD :127 [facility] BD Bone Density DEXAon 11-25 [...] MD Transcribed by: KATEY Technologist: AP Carlos [facility] MA Mamm Screen w/CAD if perf and [...] very important to your health. The current [employer] and National Comprehensive Cancer Network guidelines recommends annual mammography beginning at age 40. This facility utilizes a reminder system to ensure all patients receive reminder notifications at the appropriate time based on the recommendations of this exam. Board Certified Radiologists. Accredited by the ACR and FDA. Ordering Provider: Christopher WELLS FINAL REPORT Dictated: 11/25/2022 2:25 pm Kodak Khan M.D. Signed (Electronic Signature): 11/25/2022 2:25 pm Signed by: Kodak Khan M.D. Transcribed by: KATEY Technologist: TRISTAN Assessment: BI-RADS Category 2-Benign finding Recommendation: Normal interval follow-up Normal [facility] Consent for Treatmenton 11-14 Consent for Treatment [id number]#1.00C D:127 Normal [facility] Consultation Noteon 11-24-19 Consultation Note [id number] [id number]#1.00CD :127 Normal [facility] Consultation Noteon 11-14-19 Consultation Note [id number]#1.00C D:127 Normal [facility] Family Medicine Office/Clini c Noteon 11-06-2022 Family [...] and some weakness, I take WC to [place] so I walk and do Wheel Chair. Pain stays in the hip. After walking approximately 10 minutes at [place] patient needs to get into wheelchair secondary to the pain in her left hip. Patient reports no poor color no radiation of pain into left thigh and nor leg nor foot. Diabetes is now managed per Dr. Ruggiero, her last A1c at Dr. Ruggiero's office was 8.9 and the 1 prior to that was 13. Dr. Oliveira is her crm consultant and she believes she sees him next [...] We will refer to orthopedics here at [facility]. Physical therapy [facility]. Patient defers x-rays and well allow access orthopedics to perform at time of evaluation. Discussed possibility of bursitis and possible injection under fluoroscopy via orthopedics Ordered: [facility] External Ambulatory Referral [facility] Outpatient Physical Therapy Evaluate Patient, Develop a Plan of Care, & Implement Plan (more content not included)... Normal [facility] Comment on above: Result Comment: Elec tronically [...] these instructions at home: Medicines ? Take nzrf-yiq-qfnuwbo and prescription medicines only as told by [...] provider. Document Revised: 02/25/2022 Document Reviewed: 02/25/2022 [employer] Patient Education ? 2022 [employer] Normal [facility] Physician Referralon 023 Physician Referral [id number]#1.00 CD:127 Normal [facility] US arterial duplex LE LTon 0 11-04-2022 US arterial duplex [place] [address] Ultrasound Report Signed Patient: Evon Corcoran MR#: [id number] : 1950 Acct:[id number] Age/Sex: 72 / F ADM Date: 11/04/22 Loc: [facility] Room: Type: [facility] Attending Dr: Renetta Barahona [facility] Ordering Provider: Renetta Barahona APRN Date of [...] Miguel Membreno M.D.11/04/2022 1:09 PM Dictation Location: [place] [address] Tech: Adina Zuñiga Transcribed By: RICH 11/04/22 1309 Dictated By: Miguel Membreno MD 11/04/22 1307 Signed By: 11/04/22 1309 Normal [facility] US ankle/arm indiceson 11-03 US ankle/arm indices [facility] [place] [address] [place] [address] Ultrasound Report Signed Patient: Evon Corcoran MR#: [id number] 844 : 1950 Acct:[id number] Age/Sex: 72 / F ADM Date: 11/03/22 Loc: [facility] Room: Type: [facility] Attending Dr: Miguel Membreno MD Ordering Provider: [...] Miguel Membreno M.D.11/03/2022 10:26 AM Dictation Location: [facility] Tech: Melita Pike Transcribed By: RICH 11/03/22 1026 Dictated By: Miguel Membreno MD 11/03/22 1024 Signed By: 11/03/22 1026 [facility] CHEMISTRYOrdered By: SYSTEM SYSTEM on [...] rate/Area] 43 mL/min/1.73 m2 Low >=59mL/min/1.73 m2 [facility] Chem S Glucose [Mass/Vol] 316 mg/dL High [...] Cr Normal 0.00 - 200.00 mg/gm Cr [facility] Remisol Consent for Treatmenton 10-14 Consent for Treatment [id number]#1.00C D:127 Normal [facility] Physician Orderon 10-31-2022 Physician Order [id number]#1.00 CD:127 Normal [facility] Renal Panelon 10-31-2022 Albumin [Mass/Vol] 3.4 g/dL Normal 3.3-5.0 [facility] Comment on above: Performed By: #### 1 [id number], [id number] #### [facility] Laboratory [address] [place] [address] Anion gap [Moles/Vol] 11 mmol/L Normal 6-16 [facility] Comment on above: Performed By: #### 1 [id number], [id number] #### [facility] Laboratory [address] [place] [address] Calcium [Mass/Vol] 8.4 mg/dL Low 8.9-11.1 [facility] Comment on above: Performed By: #### 1 [id number], [id number] #### [facility] Laboratory [address] [place] [address] Chloride [Moles/Vol] 104 mmol/L Normal 101-111 [facility] Comment on above: Performed By: #### 1 [id number], [id number] #### [facility] Laboratory [address] [place] [address] CO2 [Moles/Vol] 27 mmol/L Normal 21-31 [facility] Comment on above: Performed By: #### 1 [id number], [id number] #### [facility] Laboratory [address] [place] [address] Creatinine [Mass/Vol] 1.3 mg/dL Normal 0.5-1.3 [facility] Comment on above: Performed By: #### 1 [id number], [id number] #### [facility] Laboratory [address] [place] [address] Glucose [Mass/Vol] 316 mg/dL High 55-199 [facility] Comment on above: Result Comment: If t his glucose result represents a fasting glucose, interpretation should refer to the following reference range: 55-99 mg/dL Performed By: #### 1 [id number], [id number] #### [facility] Laboratory [address] [place] [address] Phosphate [Mass/Vol] 3.8 mg/dL Normal 1.9-4.6 [facility] Comment on above: Performed By: #### 1 [id number], [id number] #### [facility] Laboratory [address] [place] [address] Potassium [Moles/Vol] 4.2 mmol/L Normal 3.5-5.3 [facility] Comment on above: Performed By: #### 1 [id number], [id number] #### [facility] Laboratory [address] [place] [address] Sodium [Moles/Vol] 138 mmol/L Normal 135-145 [facility] Comment on above: Performed By: #### 1 [id number], [id number] #### [facility] Laboratory [address] [place] [address] Urea nitrogen [Mass/Vol] 28 mg/dL High 5-21 [facility] Comment on above: Performed By: #### 1 [id number], [id number] #### [facility] Laboratory [address] [place] [address] Urea nitrogen/Creatinine [Mass ratio] 22 No Units High 10-20 [facility] Comment on above: Performed By: #### 1 [id number], [id number] #### [facility] Laboratory [address] [place] [address] U Protein/Creat Ratioon 10-14 Albumin Elph (U) [Mass fraction] 8.4 mg/dL Invalid Interpretation Code [facility] Comment on above: Result Comment: The reference range and other method performance specifications have not been established for this test; results should be integrated into the clinical context for interpretation. Performed By: #### 1 [id number], [id number] #### [facility] Laboratory [address] [place] [address] Creatinine (U) [Mass/Vol] 132.6 mg/dL Invalid Interpretation Code [facility] Comment on above: Result Comment: The reference range and other method performance specifications have not been established for this test; results should be integrated into the clinical context for interpretation. Performed By: #### 1 [id number], [id number] #### [facility] Laboratory [address] [place] [address] U Prot/Creat Ratio 63.30 mg/gm Cr Normal .00-200.00 [facility] Comment on above: Performed By: #### 1 [id number], [id number] #### [facility] Laboratory [address] [place] [address] URINALYSISOrdered By: Rosa Chacon on 10-31-2022 Bacteria [...] AM) Normal Negative [facility] UA Auto SS Gooding.plasma/Lith ium.RBC (Bld) [Mass ratio] 0-3 /HPF Normal 0-3/HPF [facility] UA Auto SS Nitrite Ql (U) Negative (10/31/22 7:33 AM) Normal Negative [facility] UA Auto SS pH (U) 6.0 *NA* (10/31/22 7:33 AM) Invalid Interpretation Code 5.0 - 9.0 [facility] UA Auto SS Protein (U) [Mass/Vol] Negative (10/31/22 7:33 AM) Normal Negative [facility] UA Auto SS Specific gravity (U) [Rel density] 1.025 *NA* (10/31/22 7:33 AM) Invalid Interpretation Code 1.005 - 1.030 [facility] UA Auto SS UA Spec Desc Clean Catch (10/31/22 7:33 AM) Normal [facility] UA Auto SS Urobilinogen Qn (U) 0.5983602 {Donell'U}/dL Normal 0.0 - 1.0 EU/dL [facility] UA Auto SS WBC Auto Ql (U) 1+ *ABN* (10/31/22 7:33 AM) Invalid Interpretation Code Negative [facility] UA Auto SS WBC LM.HPF (Urine sed) [#/Area] 6-15 /HPF Invalid Interpretation Code 0-5/HPF [facility] UA Auto SS Urinalysison 10-31-2022 Bacteria LM Ql (Urine sed) 1+ /HPF Abnormal Trace [facility] Comment on above: Performed By: #### 1 [id number], [id number] #### [facility] Laboratory [address] [place] [address] Bilirubin Ql (U) Negative Normal Negative [facility] Comment on above: Performed By: #### 1 [id number], [id number] #### [facility] Laboratory [address] [place] [address] Clarity (U) CLEAR Normal Clear [facility] Comment on above: Performed By: #### 1 [id number], [id number] #### [facility] Laboratory [address] [place] [address] Color (U) YELLOW Normal Yellow [facility] Comment on above: Performed By: #### 1 [id number], [id number] #### [facility] Laboratory [address] [place] [address] Epithelial cells.squamous LM.HPF (Urine sed) [#/Area] 0-2 Normal 0-2 [facility] Comment on above: Performed By: #### 1 [id number], [id number] #### [facility] Laboratory [address] [place] [address] Glucose Test strip (U) [Mass/Vol] 2+ Abnormal Negative [facility] Comment on above: Performed By: #### 1 [id number], [id number] #### [facility] Laboratory [address] [place] [address] Hemoglobin Ql (U) Negative Normal Negative [facility] Comment on above: Performed By: #### 1 [id number], [id number] #### [facility] Laboratory [address] [place] [address] Ketones (U) [Mass/Vol] Negative Normal Negative [facility] Comment on above: Performed By: #### 1 [id number], [id number] #### [facility] Laboratory [address] [place] [address] Gooding.plasma/Lith ium.RBC (Bld) [Mass ratio] 0-3 Normal 0-3 [facility] Comment on above: Performed By: #### 1 [id number], [id number] #### [facility] Laboratory [address] [place] [address] Nitrite Ql (U) Negative Normal Negative [facility] Comment on above: Performed By: #### 1 [id number], [id number] #### [facility] Laboratory [address] [place] [address] pH (U) 6.0 [pH] Invalid Interpretation Code 5.0-9.0 [facility] Comment on above: Performed By: #### 1 [id number], [id number] #### [facility] Laboratory [address] [place] [address] Protein (U) [Mass/Vol] Negative Normal Negative [facility] Comment on above: Performed By: #### 1 [id number], [id number] #### [facility] Laboratory [address] [place] [address] Specific gravity (U) [Rel density] 1.025 Invalid Interpretation Code 1.005-1.030 [facility] Comment on above: Performed By: #### 1 [id number], [id number] #### [facility] Laboratory [address] [place] [address] Type of Urine collection method Clean Catch Normal [facility] Comment on above: Performed By: #### 1 [id number], [id number] #### [facility] Laboratory [address] [place] [address] Urobilinogen Qn (U) 0.2 {Donell'U}/dL Normal 0.0-1.0 [facility] Comment on above: Performed By: #### 1 [id number], [id number] #### [facility] Laboratory [address] [place] [address] WBC Auto Ql (U) 1+ Abnormal Negative [facility] Comment on above: Performed By: #### 1 [id number], [id number] #### [facility] Laboratory [address] [place] [id number] WBC LM.HPF (Urine sed) [#/Area] 6-15 Abnormal 0-5 [facility] Comment on above: Performed By: #### 1 [id number], [id number] #### [facility] Laboratory [address] [place] [id number] eGFRon 10-31-2022 GFR/1.73 sq M.predicted among non-blacks MDRD (S/P/Bld) [Vol rate/Area] 43 mL/min/1.73 m2 Low >=59 [facility] Comment on above: Order Comment: Order added by Discern Expert. Result Comment: Advisory Intern jin kidney disease could be indicated at eGFR's of less than 60 mL/min/1.73m2. Kidney failure is indicated at less than 15 mL/min/1.73m2. Performed By: #### 1 [id number], [id number] #### [facility] Laboratory [address] [place] [id number] RAD - Ultrasound Reporton RAD - Ultrasound Report [id number]#1.00C D:127 Normal [facility] Retail - Clinical Noteon Retail - Clinical Note [id number]#1.00C D:127 Normal [facility] VAS LAB Carotid Artery Dupl ex Ultrasounon 09-17-2022 VASC LAB Carotid Artery Duplex Ultrasoun [address], [address], [place] [address] Vascular Lab Report Carotid Artery Duplex Ultrasound Patient Name: EVON Linda Physician: [id number] Fariha Guidry MD, [facility] Study Date: 09/17/2022 Referring FARIHA GUIDRY Physician: MRN/PID: [id number] PCP: Christopher Wells DO Accession/Order#: [id number] CC Report to: Date of : 1950 Technologist: PRAVEENA Gender: F Technologist 2: Admission Status: Outpatient Location Performed: [facility] Diagnosis/ICD: S99-Npovnwsfa and giddiness; I73.9-Peripheral vascular disease, unspecified Indication: CAD, PTCA, High Risk Medication Use, Vascular Disease, Diabetes, HTN, Hyperlipidemia, CKD-Stage III, DVT, MORALES, Obesity Procedure/CPT: 58730 Cerebrovascular Carotid Duplex scan complete-44362 CONCLUSIONS: Right Carotid: Findings are consistent with [...] cm/s Right Left ICA/CCA Ratio 1.4 2.0 62360 Fariha Guidry MD, FACC Final Normal [facility] VASC LAB Carotid Artery Dupl ex Ultrasoundon 09-17-2022 US.doppler Carotid arteries -[facility] feliz [address] DO Work Phone: Gastroenterology [...] (bright red blood per rectum) CAD in [place] artery Change in bowel habits Chronic renal impairment, stage 3a Claudication of both lower extremities Colon polyp Diarrhea Familial hypercholesteremia Hemorrhoids History of colon polyps History of DVT (more content not included)... Normal [facility] Comment on above: Result Comment: Elec tronically [...] Bulgur wheat. Millet. Quinoa. Bran muffins. Popcorn. [place] wafer crackers. Meats and other proteins [place] beans, kidney beans, and chase beans. Soybeans. [...] Cream cheese. Sour cream. Fats and oils [place]. Beverages Soft drinks. Other foods Cakes and [...] provider. Document Revised: (more content not included)... [facility] Medication Refillon 08-23-19 23 Medication Refill [id number]#1.00C D:127 [facility] CBC w/Indiceson 08-01-2022 Erythrocyte distribution width (RBC) [Ratio] 14.0 % Normal 10.9-14.2 [facility] Comment on above: Performed By: #### 1 [id number], [id number] #### [facility] Laboratory [address] [place] [address] Hematocrit (Bld) [Volume fraction] 39.9 % Normal 34.0-46.0 [facility] Comment on above: Performed By: #### 1 [id number], [id number] #### [facility] Laboratory [address] [place] [address] Hemoglobin (Bld) [Mass/Vol] 12.7 g/dL Normal 12.0-16.0 [facility] Comment on above: Performed By: #### 1 [id number], [id number] #### [facility] Laboratory [address] [place] [address] MCH (RBC) [Entitic mass] 27.9 pg Normal 27.0-34.0 [facility] Comment on above: Performed By: #### 1 [id number], [id number] #### [facility] Laboratory [address] [place] [address] MCHC (RBC) [Mass/Vol] 31.8 g/dL Normal 31.4-36.0 [facility] Comment on above: Performed By: #### 1 [id number], [id number] #### [facility] Laboratory [address] [place] [address] MCV (RBC) [Entitic vol] 87.6 fL Normal 80.0-100.0 [facility] Comment on above: Performed By: #### 1 [id number], [id number] #### [facility] Laboratory [address] [place] [address] Platelet mean volume (Bld) [Entitic vol] 10.5 fL Normal 6.4-10.8 [facility] Comment on above: Performed By: #### 1 [id number], [id number] #### [facility] Laboratory [address] [place] [address] Platelets (Bld) [#/Vol] 227.0 E9/L Normal 150.0-500.0 [facility] Comment on above: Performed By: #### 1 [id number], [id number] #### [facility] Laboratory [address] [place] [address] RBC (Bld) [#/Vol] 4.6 E12/L Normal 4.3-5.9 [facility] Comment on above: Performed By: #### 1 [id number], [id number] #### [facility] Laboratory [address] [place] [address] WBC corrected for nucl RBC Auto (Bld) [#/Vol] 7.3 E9/L Normal 4.0-11.0 [facility] Comment on above: Performed By: #### 1 [id number], [id number] #### [facility] Laboratory [address] [place] [address] Consent for Treatmenton 07-14 Consent for Treatment [id number]#1.00C D:127 Normal [facility] Lipid Panelon 08-01-2022 Cholesterol [Mass/Vol] 128 mg/dL Normal 120-200 [facility] Comment on above: Performed By: #### 1 [id number], [id number] #### [facility] Laboratory [address] [place] [address] Cholesterol in HDL [Mass/Vol] 47 mg/dL Invalid Interpretation Code [facility] Comment on above: Result Comment: HDL > or equal to 60 mg/dL: Low cardiovascular risk HDL < 40 mg/dL : High cardiovascular risk Performed By: #### 1 [id number], [id number] #### [facility] Laboratory [address] [place] [address] Cholesterol in LDL [Mass/Vol] 59 mg/dL Normal <=129 [facility] Comment on above: Performed By: #### 1 [id number], [id number] #### [facility] Laboratory [address] [place] [address] Cholesterol in VLDL [Mass/Vol] 27 mg/dL Normal 7-40 [facility] Comment on above: Performed By: #### 1 [id number], [id number] #### [facility] Laboratory [address] [place] [address] Triglyceride [Mass/Vol] 133 mg/dL Normal <=149 [facility] Comment on above: Performed By: #### 1 [id number], [id number] #### [facility] Laboratory [address] [place] [address] Physician Orderon 08-01-2022 Physician Order [id number]#1.00 CD:127 [facility] Reminderson 2022 Reminders - From: [...] patient was seen on 06/11/22 by Linda [facility] Retail - Clinical Noteon Retail - Clinical Note [id number]#1.00C D:127 [facility] Ambulatory Visit Summaryon 0 06-11-2022 [...] AM EDT With: Linda Solorio CNP Where: [facility] Normal [facility] Gastroenterology Office/Clin ic Noteon 06-11-2022 Gastroenterology Office/Clinic [...] was previ (more content not included)... Normal [facility] Comment on above: Result Comment: Elec tronically [...] serving. ? Talk with a diet and nutrition assistant (dietitian) if you have questions about specific [...] Bulgur wheat. Millet. Quinoa. Bran muffins. Popcorn. [place] wafer crackers. Meats and other proteins [place], kidney, and chase beans. Soybeans. Split peas. [...] Cream cheese. Sour cream. Fats and oils [place]. Beverages Soft drinks. Other foods Cakes and [...] 03/02/2006 Document Revised: 01/04/2018 Document Reviewed: 01/04/2018 [employer] Patient Education ? 2019 [employer] Gastro (more content not included)... Normal [facility] Reminderson 06-11-2022 Reminders - From: Linda Solorio CNP To: Doretha Henry; Sent: 06/11/2022 09:24:04 EDT Show up: 06/11/2022 09:24:00 EDT Subject: Ambulatory Reminder Reminder/Recall Colonoscopy in 2029. [address] benson 05/21/2029 From: Doretha Henry To: [facility] - Reminders/Recalls; Sent: 06/11/2022 12:14:24 EDT ! Show up: 04/16/2029 12:14:00 EST Due Date/Time: 05/14/2029 12:14:00 EST Normal [facility] IntraOperative Documentson 0 05-30-2022 IntraOperative Documents [id number]#1.00C D:127 Normal [facility] Result Letter Officeon 05-30 Result Letter Office May 30, 2022 [address] [place] [address] EVON CORCORAN 1950 Below is a summary [...] letter prior to your next due date. [facility] [phone] Normal [facility] Postoperative Documentson Postoperative Documents [id number]#1.00C D:127 Normal [facility] Coding Summary.on 05-26-2022 Coding Summary. CD:[id number] Gh0 bWw+PGhlYWQ+EA1BNSDnA21 bgPGpbQ0aI0SYIKmSKlpmCC BVGDhIBkDqeuYcEQ7oiPMcL XJu IC8+XZ5jCDEnMciffARuf4V 2bTY8N81iye6mPZzxhXN0WQ EmLdKndtgug8sbhZw2XZilH mluOyBt LYXeaU78USX1kG90Nk28iMZ fbDDdu7sivCi4UiCeQFSxSJ R6kExaZUflh4ZmTNLjD81bj NJjl0T1 TCLjiMzlfZUuKmPfpOQ1fI8 hCKdzwltuk5yilboyZdb8db 94qRQtx2Z6xNW2L6AtecL2B GJvbGQg CdurhXQIgX3lnbktg4yragc zEaJjEKYhZQq7BId2GGMykG pcVsNrRO16WVU0JIOeiiQdE 2FsLWFs bStkYvF0m9E8Fi8XM3VELjk gU1STDUZKDYlzdBZ+PC90cj 43K0ZzIzxyFir7HYNfCQF9i CG0aV7b YEMfZXsxr4F4wLY7V8ByhzQ iuq5yg6yfKJMeGWeuO37fbM Xpj4J6UOXmjVR8BJFgsCsfQ iBzaG93 Oyc+YCEigKqox9HwVebln4f te8psaTf7QyjvKIPwrqZdxE ixOUO6o1MvOs0qWJNxoSB3f FK9rC2k IfStXpX9JZtqS880UbBwtAE rEatlD26wW1MfkAX+PHRyPj f4NZJbsSitAM3bX0RoESVjq mctbGVm kYjvXL1jIVFfceqeNTHhyA0 rDFLlA1o3JwXpIxK7WRqhJ6 HbHHFcdfqlRq75sM3fXyOtO rO5TOkn I8DmdiR3UHTkdZEkATipPYI 6Y13ad1I0UYRuYXSlTJS0pI M6iX8xnAhbkmuwdFWjeAyly mVydGlj BSyqTHxdJ884QYFunCeqLxN vZGluZyBEYXRlOiAgMDMvMT MvMjAyMzwvdGQ+XQUbTIJ0p WxlPSAn ePXyERurTa3omRkvvHocDI5 vYKBozxoeNCFcmY9gLXFurA CaoGbtPP2wWCBhasoph773C iAxMHB0 NPMooEEzR0ZwhB6jOgVmGCO kAWTqQ3RdhNTxSUcsA040PY jrDbY4VPHlqmSfY7FnBNKlh WduOiB0 r2W8Al8Sx1WuzzykQ8LtbLB eIrPrYhtbTUf2X0CkShdlvL I+SH95QLQsTE20CSz5VPF4k WxlPSdi EZCuD3DwcA8lJvYpHQAzLVL kOyc+PHRhYmxlIHdpZHRoPS wjQACsWjDnfPtoZH8cVo0xW GVyLWNv nEohjOPsSrUgl0kaCULuFKk nFT4ubDfyF9XntVE7DNDxe6 p3Xo08O03lS8TskGI+PGNvb PV0xOI7 gZ5sDmBwSiU4XInjU072MiJ jvFJhNolqc6ryk5fhiMe1Io I5HGQsmzDxsRmkRWO3d3FvU j71S17u IHdpZHRoPSIxNSUiIHZhbGl wym3gdB5qDx3+ANZmcCD7xN M8eY0gQaLsGlA8ZBvhT358J nRvcCIv Zgsqj1vos3kffSw5FvWyLMG xvbEkoKqdZFA6o0SfJo54N9 PbvBlyy6NcEql0zb71zTLgn 2G3gZO7 P2OnKEHjssodyASqmPxeWJ7 dBRCilntfTCGhbY7mPSXkV1 l5SdQqGtE2NUxkO0GnayC7O GJvbGQg ADEwrABBnC0qmoiqg5rslxs mAvSsQZGhFVu7TBs8RETzpL hqScOkCDZ3MjQ6EKY4lUOnd S9qtLrz ctnhkU1cEmf+BFI5fJXixEO RAJ2vGfreqRK+AYWyQDL3pR nsYObsNAVghS0uKNKuG5s4A iAwLjA1 NWhpK1MxxqE1QOTdqNJqPGI hyQYAvQ7uispam5lknwtoVa GuYGFdHRr5NOw8LWOhbOwyO iBsZWZ0 DtP4BSI0wKLlzA3afAwndxh uxC4bPvo+YkuqyJwjVQK0CJ z3I5XgWzy0INHxcHsrJA9wk GFkZGlu Nn7iuBkvbDwwXR6lKVBfuwj li889CwWxh3kaWWDkmLMwFL lrXIM1B71kx6I6JBSzRJXsA VC5nOS5 nG4pmCswrvucqQWqpKfkkcP alQeyDVydERyvY741MTAzoR uzBaDfHBi7Y3HiXtw3CZWcl LsoSP5r dYIsKFrrLi7hoErhgNudXO8 yTSXhyfnhi657QdBfu1ncSJ UanDWxIXqlKIA9S10zd2T7Y CMwMDAw ITV3pCD1hK1rkNjxjqfkzWD mdDsgdmVydGljYWwtYWxpZ2 68QSKwpWthLjZfnOc9V8VrW dm4FXBb kJhzXG0khSMgOEstUh0sqCu ofFrtHY7eFMAtownoj588Ee Qvc3sdELNskDCbYXyzACW8L 69eu9Z7 OUOxPXDxXTU4uAR8wO8syWc nbjogbGVmdDsgdmVydGljYW abKHuuQ309ZDCpxRysUjPla GllbnQg LLxpFOy4A2JoJzekqKC+PC9 9HOTlQM47hPFvmNPsq0yzzR f6AfEkYYOkRJH2xFwiVLwsl 3JkZXIt S19itHUlu6I0MLBffVldzTA tSuCltAL2oJ3qDJtlasqkw8 knjiixBqfun5iqlv70kI25A 29sIHdp ZHRoPSIzMCUiIHZhbGlnbj0 rmG1sQn9+HXJqrKA1uTO8tH 5pQCSdVrC7XFpuZ380XhCjc CIvPjxj b7bxn8qjkZl9JhY2KRNdhzZ reHwsOHY7g6AlSl70V69aDU dpZHRoPSIyMCUiIHZhbGlnb g4irF6h Ii8+BVCykPT0rPW2uO8iJyW cVzD6UYyiU113PrTihFLsSm ccJ12xJ3RxnXX+BMGnLmz6T CBzdHls GE6jgCHrMKcqZp4lUAW0LtN mKbKqCJkrS9HxREOyihukuf qlaUA3NJKpLVIxfQ16Aw5rk DogMTBw vACWwM5axpdqj4xozzsuDhB kUKTqSNj3SNg4ENHhsIvfId NtPCA4SyS5JSH7vZLggY7mo Glnbjog lP8zX0MaYFVwdfeeLk81cY0 iEmZpTbZ5DMytWzk+VFJVTV VRY2WBLBMANBTLLsQRUM87D J26bINs m0Z8sQO9O3ExAMAaqrducej pwLH5VAXgVZGowS51zKTaPZ cgPd1bx5W3t928TZOyEPXtk C71Rb0h lFbiULQyeWTDxS5tizxpc2d jaezkGrTuGRAgGSc4LUr9JH TznIqrHbUiAWU2ZdH3AJO0n PRrdZ7k rSmlymrlbD7aEna+MDQvMTE dWVe9EOamaSY+FILdPTU3cL eyHDszKUNldC1dJVHvP8a1T iAwLjA1 APxyJ7WeZWKzihicLf26pS9 aYfOdCeO4PHeiD5XzphY8GS VamBAqPOtuJYM5A22oo2A6E CMwMDAw GPM7eRP2kP9hmWbmymogcIK mdDsgdmVydGljYWwtYWxpZ2 46IHRvcDsnPjcyIFllYXJzP G73XX56 iXPqd2O9gHD0X2NwZRVbfiw rliefhUY0ZUKrNZUkmH06rA YoLHtmOh4lp5D3z290DENtF DUwaW47 Ns5ipLilXAXvlSWNxR9yfqp lk7fsgfbvKxXzDXXdTSv0TH i0VNBvhQoaSrJtRUF8OgD6K MI8mKJi eI9qjWfizrghmP7nEoq+RmV uNSbdCI33OL20wSGgm6L6rD Z3A5GoIRDwvnvenvodqBQ2Y DAuMDUw oZ90iCHhNBkuIe1nm9Z1r53 6MXEzWGLupN60Gq9fvFqvIS VayTKBmN7aporod6kwzspdO zAwMDAw YXp6KMp8UIKqcAmgPbWiYRC 2RoD2UKW6oMWlqU7nkYwubi dqlU4vUbm+M8T7mGU7qARfl DwvdGQ+ LS89rf09V0HtKabwAcp3LWZ xZVU5oJD4hS3hOHYrLDnfd6 H6tPA4C2SdbmIyjg0yg1nfV XBzZTog A33adEEec6O4FNZrbCG5JBO bdDlkSaSgwZ02Upx+PGNvbG wwr0FbZanbl0ich0bokCi9G jMwJSIg bbRowPfpOFW1a6FvLn18Q95 sIHdpZHRoPSIzMCUiIHZhbG eefq5iuN7xSy5+ZNLzjED9r SK3gQ2d RgDuKrJ9OAdmY059VxOzfUA uAgcth4zpp5bokWz6LkNoQV ZhzwRpyNflOBR5z5AlWe22J 2NvbGdy c3RbLoo2jy18sVUbb9W9rDF 2Z6WkAFWubsxqmZIihUigCE 4vPGHkjmzbSRWjqI3nINVmZ 3e9BuAk UaI4FMptG2VfiuP4JAEnwWV mAVUuxEINwM7nprvbs3jzff lxCfYlBAMjTMn1PQp1ZKOgp WduOiBs BJB4LjD5DCD6pGZjqV8srFz tyjogzI7eFhm+IOt9s2cymZ WgEA0brLY0NL60DI70lUArf 3T7uJN6 E0VbFCNfeyxyyrmglDI6LMB xUTPbgB58Rp6hdBqwJj4xXP MyNCQ4BIAeeLXuT8WfaI3zI iAjMDAw KUBvP9JsfPRvZWodQ479YLz aPeG9MGZeuxXsJ0OzKQFydI dvSuG1d2L1Fe1PND99DG30W F33rJPi d5K0oSQ4Z1HmOMAbfmjzmio dvVF4BVSfZLNkkZ05Im6ofB bsBd5dUUTcLNF3LRVgpHFpZ 7CjeS3w JoMhHEWjCMDzN7IusWVlLAg vT838FLhqLoW7UWUoefXiM5 ZoUTWxbMjnKbE2w5D3Em9ZU u93HC05 BI45sVOkl5Z1gOE7D5IhGRE vegguzezxxRP7SLAuVOZgcB 17Wb2fmBzjAs6eZSPoPOB3T FRpbWVz E6DunO6dBfVyULCzFQEoJ7M slDVeTWbpW446OIqrDsT7PD MbmjNoY6KvQOXnpTaiUyV2a 9L1Cz2J FMyuxkm6N8RlCtgnaRN+PC9 9ZSQaZE61bNIaxCUjx6dcaV a0YmIsOBYlDQZ4dUrzQQaqo 3JkZXIt Y29s (more content not included)... Normal [facility] Main OR Intraoperative Recor don 05-26-2022 Main OR Intraoperative Record IntraOp Document Type FT Summary Primary Physician: Luis BENSON MD Finalized Date/Time: 05/26/22 08:45:38 Pt. Name: EVON CORCORAN Brent Francis./Sex: 1950 Female Med Rec #: [id number] Physician: Luis BENSON MD Financial #: [id number] Pt. Type: O Room/Bed: / Admit/Disch: 05/21/22 [...] Johnston RN, Esha Diane Role Performed Anesthesiologist Manager [employer] - Primary Staff - Other [employer] Time In 05/21/22 13:14:00 05/21/22 13:14:00 05/21/22 [...] and tissue Entry 1 Skin Integrity Intact, [place], Warm, and Skin Abnormality No Dry Outcomes [...] of positioning (more content not included)... Normal [facility] Consenton 05-22-2022 Consent [id number]#1.00 CD:127 Normal [facility] Discharge Instructionson Discharge Instructions [id number]#1.00 CD:127 Normal [facility] Consent for Treatmenton Consent for Treatment [id number]#1.00C D:127 Normal [facility] Endoscopic Procedure Report - Otheron 05-21-2022 Endoscopic Procedure Report - Other Patient: EVON CORCORAN Age: 71 years Sex: Female : 1950 Associated Diagnoses: None Author: Luis BENSON MD Pre-Procedure Procedure Date 05/21/2022 13:30:00 . [...] Return to activities:: After 24 hours. Normal [facility] Comment on above: Result Comment: Elec tronically Signed By: Luis BENSON MD\.br\Date and Time Signed: 05/21/22 13:31 EST Other Comment: Soila ariza Attachment - attachment storage system not supported [id number] Can be viewed in source systemMissing Attachment - attachment storage system not supported [id number] Can be viewed in source system Inpatient Patient Summaryon 05-21-2022 Inpatient Patient Summary [address] [address] [facility] Clinical Discharge Instructions PERSON INFORMATION Name: EVON CORCORAN PHYSICIANS Admitting Physician: Luis BENSON MD Attending Physician: Luis BENSON MD PCP: Christopher WELLS DO, FAAFP Discharge Diagnosis: Diarrhea Comment: PATIENT EDUCATION INFORMATION Instructions: Colonoscopy, Care After Surgery Marcelino (ARLENE); Colon Polyps Medication Leaflets: Follow up: With: Address: When: Luis BENSON [address] [place] [address]. [address] [place], [place] [phone] Business (1) Comments: office will call for [...] Q-10) By Mouth every day. Comment: Normal [facility] Main OR PACU I Recordon 03 Main OR PACU I Record PACU Phase I Document Type FT Summary Primary Physician: Luis BENSON MD Finalized Date/Time: 05/21/22 15:15:56 Pt. Name: NILO EVONLAW Veras/Sex: 1950 Female Med Rec #: [id number] Physician: Luis BENSON MD Financial #: [id number] Pt. Type: O Room/Bed: / Admit/Disch: 05/21/22 [...] By: Maryellen Bonilla RN 05/21/22 15:15 Normal [facility] Main OR Preoperative Recordo n 05-21-2022 Main OR Preoperative Record Holding Area Document Type FT Summary Primary Physician: Luis BENSON MD Finalized Date/Time: 05/21/22 12:19:52 Pt. Name: EVON CORCORAN/Sex: 1950 Female Med Rec #: [id number] Physician: Luis BENSON MD Financial #: [id number] Pt. Type: O Room/Bed: / Admit/Disch: 05/21/22 [...] By: Fritz Dover RN 05/21/22 12:19 Normal [facility] Monitor Recordon 05-21-2022 Monitor Record [id number]#1.00C D:127 Normal [facility] Monitor Record [id number]#1.00C D:127 Normal [facility] Outpatient Surgery Discharge Instructionon 05-21-2022 Outpatient Surgery Discharge Instruction [place] [id number] Patient Discharge Instructions PERSON INFORMATION Name: EVON [...] Follow up: With: Address: When: Luis BENSON [address] [place] [address]. [address] [place] [phone] Business (1) Comments: office will call for [...] to serve you. Thank you for choosing [facility] HERE ARE THE MEDICATION CHANGES THAT [...] Some feelings (more content not included)... Normal [facility] Patient Education - Texton 0 05-21-2022 Patient [...] that are (more content not included)... Normal [facility] Progress Note-Physicianon Progress Note-Physician Patient: EVON CORCORAN Age: 71 years Sex: Female : 1950 Associated Diagnoses: None Author: Nahun PIMENTEL, Vinod Greer Postoperative Information Postoperative disposition: Postoperative disposition: To PACU. Optimetrix number: Optimetrix number [id number]. Anesthetic utilized: General. Physical Examination Vital Signs [...] meets criteria ( To home ). Normal [facility] Comment on above: Result Comment: Elec tronically [...] Problems Bile salt-induced diarrhea / SNOMED CT 030929751 / Confirmed BRBPR (bright red blood per rectum) / SNOMED CT 940846275 / Confirmed CAD in [place] artery / SNOMED CT 29506494 / Confirmed Change in bowel habits / SNOMED CT 688646888 / Confirmed Chronic renal impairment, stage 3a / SNOMED CT 7753925061 / Confirmed Claudication of both lower extremities / SNOMED CT 151137238 / Confirmed Familial hypercholesteremia / SNOMED CT 1087045291 / Confirmed History of colon polyps / SNOMED CT 4307071496 / Confirmed History of DVT in adulthood / SNOMED CT 1387153892 / Confirmed HTN - Hypertension / SNOMED CT 8460708565 / Confirmed Hx of colonic polyps / SNOMED CT 5650550092 / Confirmed Internal hemorrhoids with complication / SNOMED CT 1962388647 / Confirmed Mild nonproliferative diabetic retinopathy of both eyes / SNOMED CT 984701977 / Confirmed noted in 08/21/2019 Diabetic Eye Exam. added per outpatient CDI policy. Non-smoker / SNOMED CT 60858330 / Confirmed Type 2 diabetes mellitus with hypercholesterolemia / SNOMED CT 791728361 / Confirmed linked DM with hypercholesterolemia per outpatient CDI policy. Type 2 diabetes mellitus with stage 3 chronic kidney disease / SNOMED CT 155615332 / Confirmed linked DM with CKD per outpatient CDI policy., Active Problems (16) Bile salt-induced diarrhea BRBPR (bright red blood per rectum) CAD in [place] artery Change in bowel habits Chronic renal [...] EST Height/Mike (more content not included)... Normal [facility] Comment on above: Result Comment: Elec tronically Signed By: Nahun PIMENTEL, Vinod Greer\.br\Date and Time Signed: 05/21/22 12:46 EST Giardia, Direct, EIAon 05-14 G. lamblia Ag IA Ql (Stl) Negative Invalid Interpretation Code Negative [facility] Comment on above: Result Comment: Perf ormed at: [facility] [address] [id number] PhD Armin Zaldivar Performed By: #### 1 [id number], [id number] #### [facility] Laboratory [address] [place] [address] O & P EXAM, ROUTINE, REFLEXo n 05-14-2022 Ova and parasites identified Concentration Nom (Stl) Comment Invalid Interpretation Code [facility] Comment on above: Result Comment: No o va, cysts, or parasites seen. One negative specimen does not rule out the possibility of a parasitic infection. Performed at: [place] [id number] [place], [place] [id number] PhD Armin Zaldivar Performed By: #### 1 [id number], [id number] #### [facility] Laboratory [address] [place] [address] O & P Exam, Routineon 2022 Ova and parasites identified LM Nom (Unsp spec) Final report Invalid Interpretation Code [facility] Comment on above: Result Comment: Thes e results were obtained using wet preparation(s) and trichrome stained smear. This test does not include testing for Cryptosporidium parvum, Cyclospora, or Microsporidia. Performed at: [facility] [address] [place], [place] [id number] PhD Armin Zaldivar Performed By: #### 1 [id number], [id number] #### [facility] Laboratory [address] [place] [address] Coding Summary.on 05-12-2022 Coding Summary. CD:[id number] Gh0 bWw+PGhlYWQ+FY2UYACkA53 qhSZzyO7GB4lWME1MEEIMNI FBTN2SMG7adRK2XUwhB8Emo iAv KqthkITrHP15RNp2VNB9nCy pMWvchG6dhDYhB7n8CsHnRP 42aO33WPtmAKFaArS6GmVip jsgbWFy E4kbGmUvyBUwYkc+PHRhYmx lIHdpZHRoPScxMDAlJyBzdH ttKC5tLz1xUNSyFVXyeZkta HNlOiBj a4igMBTwFHitHR7qeCuuO7L ybJS9SASpa0o9Yf68rYD+PH ApFHO5oExzARgxa883MwJkn 6moKFO2 hREqXIhtVLZ8G33la2M6WNG tTKCpZDL7nWO5qK8zfCbtsp amG9GzwGLnWsD5RKB6nLKuh Z6tyJub uwhyrH7uVzt+Q66HJN3TSFQ QYI9IGmw1H5LiHaaorHE+PC 26NMTsTE13cAKhdRAxq8oqk Lj9JtXd WBDxQVI7oZaoAUnoa9ZaECB jX74piMUuy5N4MSGskLzavA EvZgQpfAU2rG3zMLryymrsk 2hvdzsn Somal5hvds39oQ06R12cLId fKMLxKCK9BSFxAKVswVhaht 6miG4kZx5+JBisi8vls7zil Az1KuBi DNUlqqCoxJvqCGS3g2NuOw9 6O0HyjUqzb2BrFzl3ax34mM Dom5P8uAR1DRzcNYIciV4bW WxlZnQ6 LVBiNwDdnJ65qITwNBydNt7 saUhdzCgsKT3sIFQpofscEG WlzA4uUKKcmUAawGfaSG1nO TBpbjtm l780RmWyZRA1MRRosKCvF3B zyS6lKwIbJDAaKRWdI4VqqC JyNRyjI278VFjhSgU9ZLBxs mLqL9Ia YFSlcCflRwA7h9O2Dc2Dk8R marlvNNN4NYnzXEPlPcF4Gd WmKbO0N3RaSge3EVBpgDsrA M2pI7Bb OCCynqxfqjmpzAF1TDQfGSD heB62iZQiNKwtUs7da7W0p5 22IKCfFHRdxK43Ne8raPbvI TBwdCBU eY7nzngha9eamxitRdOcIPQ jQHp0IVe0CHAusXxnPkPzOK X9SwF7KZY6uJVpeJ5hqLglr kdhqD9m Oyc+T66wfC3uSNT7XXC8xmb nELLawhAsWU99VZ00B8WeDm wvdGFibGU+PGRpdiBzdHlsZ X2gYwLl a8nye3QrLHktT9ElPAPbTDs pLvg6ASIjAUM5bFN1bH9dYP XpUJbnp0T7vPQ5J1IdbyYgo i2no1dt JIXdLZueV07ylPAqx9D7QUW wcWX7FOQbpKtoWeSqfU45Bc c+BSEniEzug2DhQzpoz1psy 8hpmYs1 GkSsSDOjflRumXmzDHN2z3T iPv80C78yMDzhQJOvYGBsMM NeVXDrdZwabk2tsW8qBh1+P GNvbCB3 lMK1wL3iHSIxUrW2MPbyM86 4CsMykUEhUbifd9tnv7brlO s1DxYaNEAkbdRwdOwrAPS5c 1BkMp11 R94zXHluMVLtACIqFYUeGOK xvGhuje3pkH0aLr4+PC9jb2 bnuk26dQ07aWO+CHGvFCD7p WxlPSdw PWEfjV2sEMtrOeI0TPNqMbG kpU18kNUbLGgbTf4rkCrnhV fhIF5wLGKxhhepg079FuNin 2xkIDEw tOJeVUpmANM8A03vo0H4AEE pNQEnZPN3yTF3zJ2azOpbeo ogbGVmdDsgdmVydGljYWwtY SiqF557 IHRvcDsnPlBhdGllbnQgTmF fODg2C5KnNiq0UZFykXrkDP 2tjFOqVIqlMt2bhQhirKvfY F6aIIVq eaekt350TqIkr9yjGARauFB dTYgxITL9Z71ma4O5WMGdEC HeIIA1jLW5kR4yzIoqogzdv GVmdDsg kaKfwYjhSKnyPEltE363KLR yaCjqDwHddrIkDZAaqFO2JO 79RG17jXVvr2K6fSO2T6EoL GRpbmct kbshwDY7EKXtCMUjxN17Ow1 hjIjbJx2rVHDrAJB4RQQkpS YwN7SdfE7sWgXxUPWdVLSaQ 3RleHQt SNmtR892TNqvWpZ2TZIjrdL pV9ReYHRbjBmdTgD8r7Y9Nx 6XI2K2NK37SX32kYZgf7V8m XJ9A7Ra HASmzptfizfbbXD3ZHBjOTP nrB79Uc0xiUkcUi1lRACgYT A5CWIftAPpY4UwcT3xAbOeQ DAwMDAw P7BbeOAdYPbjD756KMoeDgI 7AEXjzqSwS3YbVXVfjJjkBw D4g6A4Au1CGKu2PX35AD54r ATae6W5 sIM9O1EiUHOeooadfvpfeZS 4FFHlKHFhvE63Vv3byXcaGu 7pLVTeJOR5OKKagLGjE1Wgh G3vYrEo PUAiLJJhY7IndJPjRPecK93 8PPawBmF8CEPccgPrU6QbUP FmuWfbDoM4h5X4Gc9SNLAtX C86XZD9 aWJ6TI35ED86Y3XgOohmvRV ibGU+PHRhYmxlIHdpZHRoPS hlWMHgKgPvzMhvKO0vYm5eL GVyLWNv zWkrxGWnQiFwl1gcKHZsSQo gNX6biCouI5JahJO0BCEun9 o5Yx97G98fK8RkjSD+PGNvb MF0gEQ9 qJ1hRtCiInV3FQbuR517HoD kzGJlFvvox9dwp4zakJk0Ww A0EMSuhwUkdYnaBQV3z4UtQ x32Z16g IHdpZHRoPSIxNSUiIHZhbGl biy9tmK8hEl0+ZFHziXC9aW V1eA4fMwChCyM8GAoaA327B nRvcCIv Vqutd5psq6uaoKl7JhGhIEE cqaRklOimEIH5z7FmJj38C1 WhgGwrv7RqHfo6rl15oYTvr 9B2zRM9 K3NgNKMcauutfYHcwDekLF0 fSZNhhgimLJFciL0sUMPeU7 b9KjBpIpR9HKuaI1RbzoQ0G DEwcHQg NYafRZH2Z27xp6C9NWWtJPU vLDD9dCZ0dU7mhAxkgwzdpS VmdDsgdmVydGljYWwtYWxpZ 246IHRv yPocODHvzX5lUPZywGOppGa xZC1zNWMvhtobVjYGYI3JW3 aDWptxW3DBAC9pUViqkLL+P HRkIHN0 iHfuIUkjFNRnkO8tXKRxB6l 9ZjPnFbI2DXrlE1RfSWPkti emJf88oM3mWtNcDuE4QSdmV 7LkfnE0 ODGmoSDgMQrdJUO3H10ty4V 6EWIuZXGmTLW9yEO5gM9flV lnbjogbGVmdDsgdmVydGljY WwtYWxp C412VPYitRtcIdM4MlLqRiH 8JPD8Y7XyVhn4EUHjjLkvDL 3nfWMkTIgyDa3dzZafhMvtS K2qCEMs fxmoOAFggU0dXZOyjXHlpTh qJN1hKJIkqeoef454SoZmFV D4CJViaQFiD3VpsA1qNoIeU DAwMDAw E6XylICdBNxtJ546RStpIpL 2GWLxvxOwE5DpVOEbaKgxYz I4u7T3Ki96AxUCILJhtmtax GQ+PHRk MJL4mJklPObdKWHwgI9oKJV sO1k9TrAlUhB2SFzuH3HtBH VlgbefQv21pW1xYjOaBqA1E YxhC9Bf gsM5QJBdpTKvTMepAGN4E89 mg7O5PXXlYDGvPLM6zCJ1lJ 1hbGlnbjogbGVmdDsgdmVyd GljYWwt WZpmN778SUTztSktTxLxzAC sZTwvdGQ+GBItGES1tQvvNS xdIVIdlS9gEVUtD7j2IkJfW yT6XFbb C6GsKBSkhpqrNa84kR1jSdH dNjE0KGzdL2AegbP0WRYqqN OnYLzwXWY5C68la5G9DUNqU DAwMDA7 mDO0oR8bmXayhisqsKMsrEc cekVywBbdWXjvDAtfG643CJ IovVnmUwxzHqHVyi7jTV6nT jwvdGQ+ OU00uu47W0OzUrktZiy5RUX zDXM8tED2kT5eFKXsBKgay7 U2hOX9N6PmlsXruf7zr5huG XBzZTog M05nrYUpq3D8ZURwmIG9XMV ifOeqSvBjsA21Hxa+PGNvbG xcv5OvYhwal2bds1kahNk8B jMwJSIg lyTfsHjpFEM1l0ZtKg84Q61 sIHdpZHRoPSIzMCUiIHZhbG jcoj4erS1qBy7+BMBymVW3t ZP8fP0d DaHtHyC5HDipV608JtAebTC iCeuyw8fdc3bsyXo4EtEtGB XlgnLaaBkeSYB2h6EvUn60P 2NvbGdy e2HtRpj8ha92rMHtp3J7bZN 6Q4MeBLLenxiicACreTbcCX 3eRDVcwxduDIKzzE3cRAAlF 6t0RhSb ZsK6HLlsB3XvgmD6MUJmpEH qYLMeqGANxU0ayxowr8jnen mhVeBsRULgMXc4UXg1IFLhv WduOiBs XWO2WtJ2HOW6wZMktV8btBr fupmfzM1tMrb+YZn7b4wapO MfDZ0enYU1XK87ZW04qPYpk 8X1kDU5 D6PoPJPqbhjprwcpbVE5GBX iLFSohP63Sh0ksChpIb1gMD QtPYA4QSJvqEXeN1CyjX2cH iAjMDAw IVDaR3DilXDpSTqvF419AKq jCuI5DFYeydIzH4BoTVEthT jcNaS4q4G2Yq2ZFH95QW47B N24dHWg q6W2dNJ0X8DvQAIecxizkmf mdGY3XCOcQFWmyJ70Gk4mfH biFj3eSIOgCDW9CHTesWQmS 0JzqJ8a FfSaBHFvVMKpW5QvzJVeNFg bE921FNrdBoY9VNLczyJsH0 AkJGVobUcgWuI2r0L2Hk2DR j04PM79 DA52sSWqn4L2bTE0G3DkETR bjtlxhpdhnPP1QUYoCIRswI 78Nz7rtLzwAr1dMWMhPNU5S FRpbWVz T4CmzQ5gMaNtFAQkQNRcA8W kwLBkFFsyB111QIqkSdJ9YC EdceIsK7CeLADgpGeuUxV0n 7Y3Oi5R NJwogod2T1SmApawwSM+PC9 4ROHmVX61uFEvbQEiy9wxuS l3ToQrDMZcWBF8nSgeEBjsx 3JkZXIt Y29s (more content not included)... Normal [facility] CDiff PCRon 05-08-2022 CDiff PCR Unable to perform te st due to consistency of stool. C. Difficile testing will only be performed on diarrheal (unformed) stool unless ileus due to C. difficile is expected. Reference: Clinical Practice Guidelines for Clostridium difficile Infection in Adults, Infection and Hospital Epidemiology July 2009, Vol 31, No 5. Normal [facility] Cdiff Specimen Acceptable Unacceptable Normal [facility] Comment on above: Performed By: #### 1 [id number], [id number] #### [facility] Laboratory [address] [place] [address] Order Cancelled YES Normal [facility] Comment on above: Performed By: #### 1 [id number], [id number] #### [facility] Laboratory [address] [place] [address] Enteric Panel by PCRon 05-08 C. coli+jejuni+upsalie nsis DNA ARCELIA+non-probe Ql (Stl) Not detected Normal [facility] Comment on above: Result Comment: Test ing was performed utilizing reverse hook and eye machine operator (RT), polymerase chain reaction (PCR), and array [...] nulcleic acid test. Performed By: #### 1 [id number], [id number] #### [facility] Laboratory [address] [place] [address] E. coli stx1+stx2 genes ARCELIA+non-probe Ql (Stl) Negative Normal [facility] Comment on above: Performed By: #### 1 [id number], [id number] #### [facility] Laboratory [address] [place] [address] Enteric Panel by PCR Negative Normal [facility] Enteric Panel Intrl QC Pass Normal [facility] Comment on above: Result Comment: Test ing was performed utilizing reverse hook and eye machine operator (RT), polymerase chain reaction (PCR), and array [...] 1 and 2. Performed By: #### 1 [id number], [id number] #### [facility] Laboratory [address] [place] [address] Norovirus genogroup I+II RNA ARCELIA+non-probe Ql (Stl) Not detected Normal [facility] Comment on above: Performed By: #### 1 [id number], [id number] #### [facility] Laboratory [address] [place] [address] Rotavirus A RNA ARCELIA+non-probe Ql (Stl) Not detected Normal [facility] Comment on above: Performed By: #### 1 [id number], [id number] #### [facility] Laboratory [address] [place] [id number] S. enterica+bongori DNA ARCELIA+non-probe Ql (Stl) Not detected Normal [facility] Comment on above: Result Comment: This test result should be correlated with clinical presentations and medical history by a healthcare provider to determine its clinical significance. Performed By: #### 1 [id number], [id number] #### [facility] Laboratory [address] [place] [id number] Shigella species+EIEC invasion plasmid antigen H ipaH gene ARCELIA+non-probe Ql (Stl) Not detected Normal [facility] Comment on above: Performed By: #### 1 [id number], [id number] #### [facility] Laboratory [address] [place] [id number] V. cholerae+parahaemol yticus+vulnificus DNA ARCELIA+non-probe Ql (Stl) Not detected Normal [facility] Comment on above: Performed By: #### 1 [id number], [id number] #### [facility] Laboratory [address] [place] [address] Y. enterocolitica DNA ARCELIA+non-probe Ql (Stl) Not detected Normal [facility] Comment on above: Performed By: #### 1 [id number], [id number] #### [facility] Laboratory [address] [place] [address] Fecal WBC Lactoferrinon 04-17 Fecal WBC Lactoferrin Negative Normal Negative [facility] Comment on above: Result Comment: The semi-quantitative detection of elevated levels of fecal lactoferrin is a marker for fecal leukocytes and an indication of intestinal inflammation. Performed By: #### 1 [id number], [id number] #### [facility] Laboratory [address] [place] [address] MICRO OTHER TESTSOrdered By: Cynthia Case on 05-08-2022 Fecal WBC Lactoferrin Negative (05/08/22 9:00 AM) Normal Negative [facility] Man Sero Coding Summary.on 05-07-2022 Coding Summary. CD:[id number] Gh0 bWw+PGhlYWQ+AA2IWETwA83 mwTYxnX8MI1tKHE5JCRFDND KWBU6ISI4kmNI3BQbqM0Mag iAv OzawwRQqGU47ZVp2SBZ5dVd lCPtwcE1gxSTqF8l0XgFeZQ 64lX90KRxeRUDpEfJ7AsImd jsgbWFy I4iiEcNnzLHcAox+PHRhYmx lIHdpZHRoPScxMDAlJyBzdH tsEY3aZp8vIMTlTETvfGoav HNlOiBj y7fiAPQnCMqnAX3urGuyH8Y exOJ2ZTOqc6q2Gp22nXQ+PH CbEOC1iVsuOKwoh778DfSxd 3rcAFE9 eFExBLaoCSW6W51ef1E1QWL rNOXlBDL4bMK5tL4lxBrvav tgS6RwbACnEsE8LKE3eUOwe I1jxMxz pjufhT0tYmy+L98ESL4YHDZ WZZ5THak2F5WfTwzszOW+PC 07PIXdHX85cEWduRRur2fxs Yx1XpPq APTwMYR0hUtkKMxxp1AtAPD xX46nzJFrc7N7RDRarBqxnR YyTnQnoUY6fK1aVHcipyzwz 2hvdzsn Esvgs3irea84sI69O85lKWr nDUGgQEE6OYDnOYOyjGgglg 4iuW0xNi9+ATxku4jrr6tga Hc2RrDv ZIOowgZzhXgiPBS7w8QcNi5 9U2GwfUbxt2TwMyw1pd18uJ Isx8K3cHR8LBnoEZHwiO7uL WxlZnQ6 ONRrUaXfoJ24hKVnIJjlEc0 unPobzFhtLR6rKWCaximoFH UtvC4pXROlbNUilSrzBP0rA TBpbjtm r571OrXrGDA5CIMxbEIjL8W snA9vAkWqXFDbSWRnI1LeyT NeLKtzJ786XNtbScP8MWKte cQhH8My EMKclPqjEaH4a9H0Dp6Gg9L rfyhwHLS2ANnyZDIuHuSfPk GwNpZ2Q2EkKne9BHNieUeuO C3mP0Nj OHZgddjwfcknqYW0RASqVYA dsL01wDDpEIkfLw0ej5V1g6 22BGJtVAAzaK27Td4gnXplO TBwdCBU yS9cpnmpw2jtmaucNhQyDMK zOAz3EXu5MRQzaMkfXiKgIX E9IfD5ZOK9sADivO8doOlbx cckgH6o Oyc+D62ldV2kLMW9LBQ2hiq eWTGujdRxYN88WR31I6GzSq wvdGFibGU+PGRpdiBzdHlsZ D9sFfVu g5dhx8VhJMxyM7QoAYQeADv nVum0DPZiHLQ7kEE2uR0kIN HeGXwla1P9lSC6S2FoxdUuq l0ub5rv PIQnDHoyY61zdBRou0G9NGO faKB0THKkyBqjKdYlwG74Iz c+ZUOyaMzxe5JlTxouj6ipp 5lkqIe0 KnSdZZHfogVyvTmaEKB4u3G aVz85N48mVJtnQTAxGDBnWF CpTKFloEljyj3rxR6nHy4+P GNvbCB3 kFD3zD7vSDCnHdQ9BPzsD99 5CaVtiAAgPtquu8ohq8njnL n9FjOlLRCjlzCjaOecKTP8w 0IbAa49 J94uGNdeKHGcYKFvEYLjUIU fiZajdo2yiS0mOn1+PC9jb2 innd06mZ77cOT+IGVnRIU8z WxlPSdw RNJuwL4tSNjkJnJ0SGVjIaW hcO95nORhWNfvAg0nfXbhrO piUH4tHQDckfzon998UyTrc 2xkIDEw xQLuQFbsTIL5Z63yg1N0XYZ nUVXjAQP5oFE0dC6bsNpezy ogbGVmdDsgdmVydGljYWwtY ChzV584 IHRvcDsnPlBhdGllbnQgTmF jYXx0G4QaCgp3RTUvcBkySK 0blNQfROjaLq8bwTrrgFvlC E5gQRUg kbbdl231OtGhw4gtVMDxmCA cEFskXPC9A35ir1Z2LDGgZQ ObUVS5zBE3xE0vwDkebgiur GVmdDsg iaVvsWdxSLmeNQokR738OTM ssDrxOqMielUwGVZcuFW5YW 55PY47hYGne1G5aIN0O6ZzG GRpbmct wsngsER6BJAqKTNhvE90Us7 daFieRr9yHIIoRVO0XMAzvP VwT8MyiR4kKlFbZXNyOFVgQ 3RleHQt VDmfZ369SSrbNzT4ZZRjhpE gU4YiLDUnaPoyIcO6f8I2Qh 0FT3R7XH63DR49nAYfo9H1r ZB8N8Ra ABDyhqjyespolRO8YBHyWSY prU95Xb8npRrtPx2sJLBxEC C7KCUuqRPpX5EzaN2xRvDkQ DAwMDAw L3OvjMRzEFalQ086SPnxXrQ 4VNEpgsPnR2AyTNYqrKboVp Q4x4G2Rg3QXEw2ZG51LB51m XBmw7B0 eAR7Y1AfFPIhcnzmeoepjWW 1LKBwSCZuqR32Hd9znClsEh 0dPADhEBE4SLKjuDGkC3Okd L3iElNn JBEsLJZwW1XioNImQWrjU80 3SNfrMiK5XLDyjkRyP2ErWI EyzSzbBkC7h2K7Qh4SMPPtK P56YKX1 uLD3AC65TV70V0DsOpnsePY ibGU+PHRhYmxlIHdpZHRoPS wiYDNtSwJnpVbbAL0mVv0eP GVyLWNv qJsapBMjSmXmu4udIUGeDZo tTJ6lrSeuT9FiaYI0CHWbu6 x8Sb53K83jS4FhxOQ+PGNvb PF1zDK1 oA0wLzInWqS1VWtdE529CoU plTSrCdwdh9ehk1iaoEe4Sl I0QSFnneHjwWrwXUY7r0WaW v68J21p IHdpZHRoPSIxNSUiIHZhbGl zci6alK8mXl5+OAUfpHQ4wT F8xB7uHsYbPxR1VMgoP274U nRvcCIv Owroa6hni9ovvQz7TyMtZZY ppfTjkWbeWLV9g4JcQh45Y1 JruVywj0FpBdq0yj19oDWjk 3W5bRK3 H4PhYRZrdukpvVWhtTnhQJ0 lAHRosweqXIUldH7pUICnG8 j5HuAxUdX5ULevU3YpvtO5Y DEwcHQg OZkvVFB9C85es6G6MLJaQME hYVH7aQJ1dF4idYbrvwoxtM VmdDsgdmVydGljYWwtYWxpZ 246IHRv eJvfSREvqZ9uDVJglABkwJz vOL8qAYWrueiyLkWCNK4UO3 nGEizwK1KUWC4tGVgdhKU+P HRkIHN0 mHmnRMyeRNYpwC5nNSAtS6e 4KoRsRhG7BQohT3UoVHUvyz xzJo79eU1mBmDcWhR7DHfsH 0NhzwX0 MWNsoHTfQQsvAAP7L68rg8G 4QUScEVMtICT0jVH1dE3beN lnbjogbGVmdDsgdmVydGljY WwtYWxp A132VAGhwJzpXhL8UmEwNhX 9KBG4V7ExSwm6VJObeSmwYU 7xkRCyGXrfZj0kePhzsDocU U5oYXCh okahYMObuR6qQEZxpXUyuRq cAQ6bAAAzwoele848WiKjDL K4GZKlhOAtE1LanH4nQaNzW DAwMDAw F4IdrPGuGAbwQ210ZHkjJyM 0DNNvfnGeW6AtUQXnuOlxEh H2n7O7Qj21DnXKJEBghsvml GQ+PHRk ZVE3aFhyGUsfNGGcfG2nMQJ uA8k3LlNqTdH0NXhaO0McTW CeckdtFo44gV4lYyBeYwZ9N VgzX4Lt dfA4TUHodWDpEEoxBCW3S44 ri6S0HMYqYQWsXZD3jTJ7zI 1hbGlnbjogbGVmdDsgdmVyd GljYWwt AFeoE593KVZdmYijHlEixAV sZTwvdGQ+WZQcVQD7lLfrVL gcDNRtxC1sGQBbQ2g5ZhXiK dC2SRyp U3DdRNBonfpwTz44sE9aImY fBdJ3ROyvV7WugyI7KGIrvK AnFQfwWYD4K55kj8V0VNVrK DAwMDA7 vSW4vP7scRptbzoitQOtwYg xpnJliEirGHxpNVrkL589DP BtvUwgZr99bVRgrXrxhbN4D 3RkPjwv dHI+UR07DQCxPS95qTJmoDS ef3kpcNy7KlCuPGYvSIN0sK dbGOucj8QoFHFvE99xhBXez 5F2QUOs pYiiyNKfCxUyqKK1nI0lBJg lylkua0pyagopDcvtf9zthz 01xY96U54yGTivCSRdGRStX CUiIHZh bPnibd5wnD8nUz3+PGNvbCB 7aTN9hU0vAhWfDiN1OBcjJ8 04IbCcvZNlPdsth9wfr7svc Ee4IfFb AUPvpvBeaRnlSYL9n0AzIk4 3I91xLOmsVVLpTMEjBZAzSW VjpLmysl0uvZ4fRf5+PC9jb 7dmnc76 xE97rMY+WEEqTXQ3rEszXZc gDSLzsH1aOHgmGhW0GIIrMe FwsN77gFPhCIkwSu9fjMdmv YoaMW9r UYLubfzbx228MpAho3wtDDG rfSTiOWvoFKH5J64ip4Y4DU UpRZQlMNP8cEH9lE0skVvhb jogbGVm fNfpwiMbhLyrZSloCHemN83 9ZHQwcVrbJhNfxQGjP0oqfh WEKN9kAavokPY+VBVvNVK2k WxlPSdw EUVdrF8oDQAyB7n6MgMjZuS 8JSqfF8YxofQ5OYDoqVDsRE CfuLMAeR3fjtato3jhlxeaZ zAwMDAw NQu0DVa3ZEFlaUtqOhVhSJM 9ZgO8ZXP7yWMjlO1dzIvweo zwmL0jMdt+RklOOjwvdGQ+P HRkIHN0 hWggUEblWRKzmA6tXBWhH4g 1EwCbXqN8UZqxG9StfoE9PN IcjADjJHDdeOZMeK9coahdo 2xvcjog UpPnJUXoSRj6SXp7TQYvyYb wUpPfZTP6MpZ4QJP0kQLuiW 1stUdkurtyjS2uTws+TVJOO jwvdGQ+ EMWgXBS9fIapRGieFIPfdH8 sUBXrH2a6CkFaCzD0GShwS1 MqgoE2CVJcySQnMFTxlKGPp C7ojwkj o7ftjcmpKuUqHLUbRYi3JPg 2BUTkvDivAvGgWAQ3XjQ5NY J2nNMduI5inEsariyxxW9pO yc+UGF5 MCB7EH35CP52O8AgYruqlYA ibGU+PHRhYmxlIHdpZHRoPS udTZTrBnUygXdhWP9tLi7yZ GVyLWNv bGxh (more content not included)... Normal [facility] Consent for Procedure/Surger yon 05-06-2022 Consent for Procedure/Surgery [id number] D:127 Normal [facility] Ambulatory Visit Summaryon 0 05-05-2022 Ambulatory Visit [...] Lab Collect, Change in bowel habits Normal [facility] Auto Diffon 05-05-2022 Basophils/100 WBC (Bld) 0.6 % Normal 0.0-2.0 [facility] Comment on above: Order Comment: Order Added by Discern Expert. Performed By: #### 2 [id number] #### [facility] Laboratory [address] [place] [id number] Basophils/Leukocyte s Auto (Bld) [Pure # fraction] 0.0 E9/L Normal 0.0-0.2 [facility] Comment on above: Order Comment: Order Added by Discern Expert. Performed By: #### 2 [id number] #### [facility] [facility] [address] [place] [address]3679 Eosinophils/100 WBC (Bld) 1.6 % Normal 0.0-8.0 [facility] Comment on above: Order Comment: Order Added by Discern Expert. Performed By: #### 2 595177, 0780855, [id number], [id number] #### [facility] [address] [place] [address] 39206 Eosinophils/Leukocy bev Auto (Bld) [Pure # fraction] 0.1 E9/L Normal 0.0-0.5 [facility] Comment on above: Order Comment: Order Added by Discern Expert. Performed By: #### 2 904143, 4076908, 73281579, [id number] #### [facility] [address] [place] [address] 14520 Lymphocytes/100 WBC (Bld) 15.4 % Normal 14.0-50.0 [facility] Comment on above: Order Comment: Order Added by Discern Expert. Performed By: #### 2 236952, 6664523, [id number], [id number] #### [facility] [address] [place] [address] 05238 Lymphocytes/Leukocy bev Auto (Bld) [Pure # fraction] 1.3 E9/L Normal 1.0-4.0 [facility] Comment on above: Order Comment: Order Added by Discern Expert. Performed By: #### 2 308225, 3497368, 71711453, [id number] #### [facility] [address] [place] [address] 43244 Monocytes/100 WBC (Bld) 5.9 % Normal 4.0-14.0 [facility] Comment on above: Order Comment: Order Added by Discern Expert. Performed By: #### 2 581307, 6833504, 37138801, 9807312 #### [facility] [address] [place] [address] 16184 Monocytes/Leukocyte s Auto (Bld) [Pure # fraction] 0.5 E9/L Normal 0.2-1.0 [facility] Comment on above: Order Comment: Order Added by Discern Expert. Performed By: #### 2 371243, 1163942, 97965195, [id number] #### [facility] [address] [place] [address] Neutrophils/100 WBC (Bld) 76.5 % High 36.0-75.0 [facility] Comment on above: Order Comment: Order Added by Discern Expert. Performed By: #### 2 204026, 4629396, 68873520, 6870076 #### [facility] [address] [place] [address] Neutrophils/Leukocy bev Auto (Bld) [Pure # fraction] 6.4 E9/L Normal 2.0-7.5 [facility] Comment on above: Order Comment: Order Added by Discern Expert. Performed By: #### 2 241005, 9854556, [id number], 3592762 #### [facility] [address] [place] [address] 02252 CBC w/ Auto Diffon 3 Erythrocyte distribution width (RBC) [Ratio] 14.1 % Normal 10.9-14.2 [facility] Comment on above: Performed By: #### 2 977606, 5632599, [id number], 9782207 #### [facility] [address] [place] [address] 53612 Hematocrit (Bld) [Volume fraction] 38.1 % Normal 34.0-46.0 [facility] Comment on above: Performed By: #### 2 110422, 7813127, 15075808, 4613186 #### [facility] [address] [place] [address] Hemoglobin (Bld) [Mass/Vol] 12.5 g/dL Normal 12.0-16.0 [facility] Comment on above: Performed By: #### 2 630954, 2390341, 41530313, 0928422 #### [facility] [address] [place] [address] MCH (RBC) [Entitic mass] 28.6 pg Normal 27.0-34.0 [facility] Comment on above: Performed By: #### 2 296634, 1242277, 01895072, 4393018 #### [facility] [address] [place] [address] 49477 MCHC (RBC) [Mass/Vol] 32.9 g/dL Normal 31.4-36.0 [facility] Comment on above: Performed By: #### 2 807115, 8185655, 05054369, 0061618 #### [facility] [address] [place] [address]1933 MCV (RBC) [Entitic vol] 87.1 fL Normal 80.0-100.0 [facility] Comment on above: Performed By: #### 2 644175, 6315943, 58969954, 7621688 #### [facility] [address] [place] [address] 70599 Platelet mean volume (Bld) [Entitic vol] 11.0 fL High 6.4-10.8 [facility] Comment on above: Performed By: #### 2 013482, 6400681, 95922899, 2117279 #### [facility] [address] [place] [address] 78151 Platelets (Bld) [#/Vol] 202.0 E9/L Normal 150.0-500.0 [facility] Comment on above: Performed By: #### 2 963779, 2738777, 32468652, 0697966 #### [facility] [address] [place] [address] 55726 RBC (Bld) [#/Vol] 4.4 E12/L Normal 4.3-5.9 [facility] Comment on above: Performed By: #### 2 847953, 5798879, 54106715, 5952814 #### [facility] [address] [place] [address] 55923 WBC corrected for nucl RBC Auto (Bld) [#/Vol] 8.3 E9/L Normal 4.0-11.0 [facility] Comment on above: Performed By: #### 2 588557, 7821906, 66220333, 4475249 #### [facility] [address] [place] [address] CMPon 05-05-2022 Albumin [Mass/Vol] 3.6 g/dL Normal 3.3-5.0 [facility] Comment on above: Performed By: #### 2 336968, 7555328, 42867073, 5915633 #### [facility] [address] [place] [address] Albumin/Globulin (S) [Mass conc ratio] 1.0 Low 1.1-2.2 [facility] Comment on above: Performed By: #### 2 932256, 0164559, 32055375, 1118711 #### [facility] [address] [place] [address] ALP [Catalytic activity/Vol] 93 Int._Unit/L Normal 21-98 [facility] Comment on above: Performed By: #### 2 040897, 4814026, 16326426, 9730080 #### [facility] [address] [place] [address] ALT No additional P-5'-P [Catalytic activity/Vol] 27 Int._Unit/L Normal 6-46 [facility] Comment on above: Performed By: #### 2 192279, 8857034, 60080861, 4395026 #### [facility] [address] [place] [address] Anion gap [Moles/Vol] 15 mmol/L Normal 6-16 [facility] Comment on above: Performed By: #### 2 398600, 1422696, 73214380, 8902398 #### [facility] [address] [place] [address] AST [Catalytic activity/Vol] 29 Int._Unit/L Normal 5-43 [facility] Comment on above: Performed By: #### 2 412652, 3512137, 13560284, 8092595 #### [facility] [address] [place] [address] Bilirubin [Mass/Vol] 0.8 mg/dL Normal 0.0-1.1 [facility] Comment on above: Performed By: #### 2 133651, 5220834, 28150382, 3530359 #### [facility] [address] [place] [address] Calcium [Mass/Vol] 8.6 mg/dL Low 8.9-11.1 [facility] Comment on above: Performed By: #### 2 143698, 3842097, 85591462, 2018271 #### [facility] [address] [place] [address] Chloride [Moles/Vol] 100 mmol/L Low 101-111 [facility] Comment on above: Performed By: #### 2 926397, 6566447, 65008307, 8978501 #### [facility] [address] [place] [address] CO2 [Moles/Vol] 26 mmol/L Normal 21-31 [facility] Comment on above: Performed By: #### 2 219645, 2428123, 51873301, 6705736 #### [facility] [address] [place] [address] Creatinine [Mass/Vol] 1.2 mg/dL Normal 0.5-1.3 [facility] Comment on above: Performed By: #### 2 913982, 9272955, 05114919, 3807449 #### [facility] [address] [place] [address] Globulin (S) [Mass/Vol] 3.7 g/dL Normal 1.4-4.0 [facility] Comment on above: Performed By: #### 2 619890, 4602837, 05276101, 3543556 #### [facility] [address] [place] [address] Glucose [Mass/Vol] 303 mg/dL High 55-199 [facility] Comment on above: Result Comment: If t his glucose result represents a fasting glucose, interpretation should refer to the following reference range: 55-99 mg/dL Performed By: #### 2 607055, 2645221, 57349762, 1700519 #### [facility] [address] [place] [address] Potassium [Moles/Vol] 3.8 mmol/L Normal 3.5-5.3 [facility] Comment on above: Performed By: #### 2 755037, 7166481, 01156775, 9813436 #### [facility] [address] [place] [address] Protein [Mass/Vol] 7.3 g/dL Normal 6.0-7.8 [facility] Comment on above: Performed By: #### 2 955403, 1104324, 82885666, 3927769 #### [facility] [address] [place] [address] Sodium [Moles/Vol] 137 mmol/L Normal 135-145 [facility] Comment on above: Performed By: #### 2 455814, 0411562, 13088260, 9211653 #### [facility] [address] [place] [address] Urea nitrogen [Mass/Vol] 28 mg/dL High 5-21 [facility] Comment on above: Performed By: #### 2 172957, 0232388, 84874388, 4874313 #### [facility] [address] [place] [address] Urea nitrogen/Creatinine [Mass ratio] 23 No Units High 10-20 [facility] Comment on above: Performed By: #### 2 152359, 7667835, 20103662, 0873036 #### [facility] [address] [place] [address] Consent for Treatmenton 04-17 Consent for Treatment [id number]#1.00C D:127 Normal [facility] Gastroenterology Office/Clin ic Noteon 05-05-2022 Gastroenterology Office/Clinic [...] left leg with Dr. Barney, Vascular at [facility] 04/07/22. During today's visit, patient reports over [...] Refill(s) 0, Prior to colonoscopy., [id number], 165, cm, 05/05/22 13:40:00 EST, Height/Length Dosing, 95.2, kg, 05/05/22 13:40:00 EST, Weight Dosing Follow-up With When Contact Information Linda Solorio CNP Within 1 to 2 weeks Additional Instructions: Following colonoscopy. Patient Education Colonoscopy, Adult Problem List/Past Medical History Ongoing Bile salt-induced diarrhea BRBPR (bright red blood per rectum) CAD in [place] artery Change in bowel habits Chronic renal [...] chroni (more content not included)... Normal [facility] Comment on above: Result Comment: [...] including vitamins, herbs, eye drops, creams, and lptz-zfp-jqkkncy medicines. ? Any problems you or family [...] air t (more content not included)... Normal [facility] eGFRon 05-05-2022 GFR/1.73 sq M.predicted among blacks MDRD (S/P/Bld) [Vol rate/Area] 54 mL/min/1.73 m2 Low >=59 [facility] Comment on above: Order Comment: Order added by Discern Expert. Result Comment: eGFR is race adjusted. AA=. Performed By: #### 2 520421, 4832417, 29088867, 2996922 ####[facility] [address] [place] [address] GFR/1.73 sq M.predicted among non-blacks MDRD (S/P/Bld) [Vol rate/Area] 44 mL/min/1.73 m2 Low >=59 [facility] Comment on above: Order Comment: Order added by Discern Expert. Result Comment: Advisory Intern jin kidney disease could be indicated at eGFR's of less than 60 mL/min/1.73m2. Kidney failure is indicated at less than 15 mL/min/1.73m2. Performed By: #### 2 107794, 3304667, 96473302, 9455698 ####[facility] [address] [place] [address] [facility] 04-15-2022 [facility] Please click on link to see report pdfCD:[id number] GliURNuCJDcLDNwQOQABh9P I5ugyajrSYMeAkAdAUNi MXLfBDtdgcMqe6VtzCI0OWt bYo2RhdUcsJ6dOCdQZ045cY HogwHtT44gqZ5cIZRyr86eC v4MvyQx iVzeklWtzTQlALZ5CrMiVxB xMzExNDUyNDEtMDUnMDAnKQ o+PpsspwIqKfeKFRIlEQ8mv yf5MVdp RBryOTWwMu0nfPBlq2LjzTC 0w7NBN9FzzuKZDS7eYU6Roc qulU8FAs0MqZWktdFtIgolV j1ecONY e5wnXy23LoPdDPFfPIBvNIE lZUCwQBPbFt2GdVCppW4pI3 wsaRcoVzo1Ig2IvNSoIXN5V TxiR6Vl pTVeBbrRS6o9OHaaZ1JhA1p iOLJFY1HaiHkagVngyRU6YF ZYG1cSDVylyHVsQMM0Dq2Ex 2NlbnQg VIB7El6DMGZoKU78GO2lXBY BS3bvNJYdctmkKPXcNt4DNT mWcKP3oOHlKFUxBi0BnjvHj DZ4nGQ7 YDRHCv5TGW1on1HjTdIzMJT jEwlBPSyKK7D1iUKsN0Owln ESD1N2YfY6uVDzW0TpvAJRl VQgZq1L VJTbIg5rdIWyPLBzRJlXJNf oUfwlz9OWeFLcBRBxUm1IIA A6A7fuscIoYvDXG9YfD22fr A8dLU7T eN7HatEvTU6ia8KmdscSI5S fzjOAGHOnsmhbnA3hHYTwZW WDZs3InFY3hPBoJjLnZdgsA CAwIDAg MCAwIDAgMCAzMzMgMzMzIDA wABLeCvkzNbUhQjS5DAZuJh xfJQK6VYE9JsK7APEcZLJ9A AL1VgD4 QYGcTJJ6KWIzTBM0YBL4QiR yNzggMCAwIDAKMCAwIDAgNj J1FGB7AgS7UbRjAiBjFIW1N mT6RQWu LQL8XySoIgi0EHFnVmI9KDU 0AiD0AyNIRxWuOCq2VEE0Uc miVOF2LzFlXqJ0ULXbWWD5P jIgMCA5 BNYzKFC7WiwdYELtPNKrMGk yVBVwNMG6NKPbJTL7TSMqAG Q6AXFxKFM1TTV7DOO0FQZjY CF4HMLj LhZeSfOtXAIdPGRsSlD8ZxI MVOZ0ZHN5FfN3XHZkZTO7HG SvQmW6CPOgOhi3XAI6TgH7N DAgNzIy GPPxEOV0FYLxHa2IRB6qi2W jOirgPIAcUjyTWMiBF6E8wF TrU7JghcNIXOGjobtrqQ0bH x1Xj861 FgJeHJPnWYHlIFtvDd9rMFs 9DVfxY10ASq8BvDGqpqXqRn uaVw4ycNRGg6akSi42IuYiX OG0ElOn OgvtOUHkGKadGn8JhCKqhI8 vO5rdrMckVdb3Sf0LjTHzSL Z6JNviX9ZukLCeDyrST0u0X CinT1Ti V8dmQL5nQglmT7UaGYGiG1k 3NFvxZwfaPSjqgAqdeFY6SH jEE2SzE0SodCU0QPJGS1Rkh 2NlbnQg LTIxMgovTGVhZGluZyAxNTA BN75zaIrqTIKrEDIcCiTHV6 P7I0ocUPAlUWV0APo+Pgplb mRvYmoK LHOdUG3peiq6HEnyBYxnMOQ lRr1lmAfuU8SufUysWLWpBF T7DBQ0hWFDG7Hgl3HOl837H P3Scqca cJ5Ki1scAIKfqPnnTCNDL0P fhkO3G9bwozEoWdskTMCvyP CvSBIvNZS0Jt2DqqJdDRhjH lXhE6rb QH1elFTpK41esA2pEa0Zc18 6PJTmQ1RhbBKjhlX9GYGfOk lwD4nvoIvyMGsrQdw5ACXjY CAwIDAg MCAwIDAgMCAwIDAgMCAwIDA KMCAwIDAgMCAwIDAgMCAwID AgMCAwIDAgMCAwIDAgMAowI DAgMCA3 MjIgMCAwIDcyMiAwIDAgMCA wIDAgMCAwIDAgMAowIDAgNj J1BCDaBQByYYYiFFLvYAYjR CAwIDAg MCAwIDAKMCAwIDAgMCAwIDA sDIQ9GMTlLWKeTUHfFJMbJP VwPPF4YFpDZsWiXFKyBXIiZ DAgNTU2 IDMzM10+PgplbmRvYmoKOSA iBO9mhsp2PYviLIoyGPXxLk 5oeTLcq9QomLO5o3OQF8Pnx lLZNC4y VG4HbjzzfG0Tg9bqNWXDY3B tQEpiJPGvJc4Br257MiJxhW FqKMRvBPWrMso5TJHeWANqO RF7Vw0Q O79zs7SvqpeNaJT9fMWwWek HI9I1BH9CKXs0Li7GoPXgWy S8WJwxZMZqlSupFD6unLFoQ EplH8El QDTaZ7i5RMipXtibPPzchQm ywSO7OLrRX3VtG3TsgMC8XV HVL2Snp0JjmwRtQYXeDprdN GVhZGlu KeQzWJGIY07exJbuNTYnHFF cYBPTU9N1V1frZUMaHUM8FA o+PgplbmRvYmoKMTAgMCBvY moKPDwK K5P8kHGgL7OjqbTBB7H4FbG 8tPIeW2OxsXPImZFuIm0PAT CfHw2vzKAfWRArTWkqKh8kQ M3CFm8X bKYejSRqTIOtWyROH9hhf3S XpOXsRRLpBOkmDN2rl6Tmye fzY3voawCks1pJjyVpDLgaB cbxOv2y rIEtp2CtdLW1j9SvPIRsOEO RT6nfRJWxazEwPLV8KZXjKL DpWQC3UEQxXLFyVGWiVnAqU DMzMyAw GEWiKdp5XOSPNec0FKI7FIC iREG7UyX8AFRkJUS6WWT3Gf C6FSFcQONtQKGfRGOoApMnL CAwIDAK QGP2ZWWoEIW2NsNfFeJeRJz vSoP1EqOxMvL1MKIuRCP7Ei yxYoWcXJN0MJB8VLVmXGO8U TEgODMz AeqvDaR8CwtpMiS2HFe5JOE 6EtImFhF0LBIvZZHiDGTlUJ L2OCMyFJBaNGEtGKGnYlIdY CAwIDU1 OrO2DXVzYTD6HHIoBBV8RKY qAiEuXTKsRDN5EXVaGzu3WA OtVYW7CRN4LCH7IWfFVjOjH DYxMSA2 QVZrBXXgUMzsCEY6HQAiAxP 2RPCiJZH6SHj3RAG1VPYzWH U2XT4+TxYaCP5cexfkKMNkH I5ieoo8 YWqrPKCeV2SgNTF4KKY3Vm2 UGT4alZslCvx0ZpcaHoxxdZ VyIFsvRmxhdGVEZWNvZGVdC j4+CnN0 jnDzkUv62pEGkTAR1BW/976 P+3zYsV17jJW2ntAT9NUQGr AMJAXet2kMmWikbjseup2WB iQCUhDK nQDYo8CRJgg3MpEAWSd+Jag DBQeLfOa0tKA9s3CdZ1MxWQ OCNZNGA3Rs445qKOmE/+hM7 Tv57e/e v57723eb00fWLAXOM8CLWTk m1nW9UleNC8MuCEUdlWhyWq vevDLDBLAVAchLHmhav/Q3v 5h4KWLe TsOW4FfTJ443y0VrSH+J90x aSBZ4po4GELBhukz5khfyif etKggQh/zR8PjFaYXVluDTB Ihdg/ef YSUjbum6Q2A1ezs506jIix4 LweEV91v1Z3ZQsO6s85LwKw xFFE5dh8Fy+2zIhPe0MUR11 4U4+gnU 3qrKfLeEX7WCAgYc+EAewsR UIBep0HSkkKT2ojYMP75ib0 NZQbM7UQFR6cv6TtLbaIE2V GPL0EYz Ik6LhbRtF2t9QL1VL4sTPCs Jtmkr8Vmp0xj5DhNXBRDg1A pP7TJzN4vui4AcXtaUl0Y1O yd7aXQP PbCZif2DMY5sSGjqw+BD+Ct MNNGzPZ5mAayweKMpMkoUqp Un62taJX0bTGKdMYJqp5yJy USnYtSV cIrqoGZ9DNBhBwNQkTsaUBU KSPNxBDImqOjsx3OszeiTYu 7ULmWfMue2xHogjKQcK4S8Z /pRrtBs UsP7knE3JUWx3GaKquTQRn7 6n+3RVIytgAppoEMGTMGqfL hGNeZcDw/Pb8NfPBnJpypm0 INO2A+H YUFa9Gx1STfOV+AadicWhde VTwrJApQgyiqyiWzFfrTeJD pWE2UbrIF43jhn99CyJceVX i+y3EKf psfp2/Qd+jG9SD+gB1xm5oL qVe05JzewSDPltl8Rx+ROeb /5xnjNCdNZ2kZ7uygkg1iby ANmZ617 fohGDakmyXWaLU0KXPiTKFD b0aEcF0EToQ3zp0Pih4aM+u AzXgfKwGAlXAqJl/jJfJQgW UhCZAVZ TdYNV/OlsQ8wTcqktblOKrL nyR/HT8tslkjoCq6x3wV0nh hcuoAup0/Sp+yb5QY6am34T N3IYqKq J1MbNXYJAN2yAcVke+RHmSc nhdDWT1Mj2vF9AykIcBiW03 BF0ieleZz3LhidtEh7lirIi qFMVaaj NCoPKZuUVmUvnuh+pV+Ntro EpdviB3Vc7w59A/0Odk2RTS XvlvDZHCGcVNBtn16lm+xT7 oijiu4L eNZ2L84UOTnmbpz2GKvik9S 71BxII+exEXhrvnRAem03Vy 8ykBqvF8+OzSXjcad+D9ckG 0HLT3OG zAmydOokst9KK0S6cPh7QRg btuZrC2cMZrFcGshhPGqyLY /w68VUxe7K5VyF2BCcm9ZDX pJZSis5 HAenI35CZLIwbQV2P7adNon OIAjfpuG8fGOMvwID3AN9st xLDqBLmGuyfZiZWjYt4kRJ0 GO4gVMH ummCJ7EqoChMhBBAMEr7LJi 5bWEb90xrsHZazLvnGFDSWs 0l3QMmX4VcTUJwrU7V3priQ 1QmaLag EkEeQcWCigQVClIFyYIkQcR zD/UAlTNI5kP+r8rD6CbpWc XByE5REqAfqGyAdRu4hS0OM cSMYE3n wEXxSUL9J1ALTd8KYlilVTZ 8GJfGgEM2n4BQVPaJBlzZEk 8H+UPE+4g+gKkOe8kxvVhBo xHdiJcQ iPhqQyRd4ekjW62Brur4UhY RB53p42V7Dqi7E9kkvhzzTP tS1t7A (more content not included)... Normal [facility] Please click on link to see report [id number] PDNxXzr3PMAiYsEK1oaom0Y EouYRWiTICjUUFdIWUAJz7Z E5tjxpepACIbRpZmZTPc NAPbDLgdmrQrl5QgfQN3FRs yAl8TpyTucE9eUYxKP960hJ JuhpLiK36ezE7yYWGjs41yA p4CmeEl uKckzvJxaAQyGZU5DwUyYgJ xMzExNDUxMzQtMDUnMDAnKQ o+KavewtUlUkfQPEScDM5ee nm1DTgw KWqoCUOlNy7yeOIfe2HyyLP 5c8OYO6YrqeUPRB4vKG9Qrt nsjG6Gd0qnMBJbqLbiTFMDV 0ZsYWdz FZJcIw9Bo572NaTvmVSkSRB 9DAFjMwj7JBJcLSJbTZRdZW 8QB48zj1GhtszBlDQ5qRRpW mkYU5S9 DX9YAAs3Ri1AnLXmQmR8EVl vUIEsgEjiIO7qrMYkWPLqNk 6TWSFTFWjkpWGpPgP2It1OM GRxV8b7 EJHfJAclDCKsEG90EKnaZBl jPOXeS4TnzREhQkRgDx1MGP EsrN5qOCF3MXmcVZA2R3uco GggMTMz AtdeGZLaF8lgzTjbKAq2Ia4 +EpTyVQ5uvfq7KINsv1VjVo f8Qi9UmOJhZR0Sq167Br8Hp SO5nYJk HC3CdaDlKIiyZFsoSaPpZKV ftvTvF6GvrPXjGPWzvHTTuC KnkCSVGUedTknbr8QOtSLhO PRkQl6S YZY9C9shgtLlSoSGN7TpZ15 ujQ7sQX6FbW3YkjRlYG2hh2 RjdfnVB2LjecUHPOPnyyxzg J7fJKPh VYUIWl4BqYV8mZGoFhWmRev gMCAwIDAgMCAwIDAgMCAwID AgMCAwIDAgMAowIDAgMCAwI DAgMCAw IDAgMCAwIDAgMCAwIDAgMCA wCjAgMCAwIDcyMiAwIDcyMi K9PuFqPET8LLTsDTX1BlKnA rn9AUAp GIRpMCwlLks9LxMySmd0FKT 2CoMcWTlkSyQ1UkwzWHFiVB AgMCAwIDAgMCAwIDAgMAowI DAgMCA1 LDYnIhMtPXX7OwN0GHQbMAQ 4IITwBaF7BFHsRyKiZDK5ST PtLBC8BcGyZkyzRJm3KqOvO IM6PWFy PsTaQABdOrl6LQL4DoXqLvJ tLcAsMMB9AtZwLJPgHUL4IN 4+HmEpQN0nyee7OOJix4ShI eh5Ib7B vVUlDZ7So421GDCbG2DzfLS zuhdmOe7hcN6htNDcC4VhmH EvRWHkiBWLFNoiZobwY1MuS nKXO4Bh atLAZf23LHagPgM5QI9nMkP tTcIyKLQpVIW7ZOxrCGoul3 bcO4ksUPRfJNC3CEydT8Zle UggNzgK C2G0RJ2IDCf8Yc9GjWCxsKC LpyyhKEPeEv1MZUPQSCrhmL GsBvE0Fp5RKPLrR7z6HPFwQ QovQXNj QJ94ONunBEyhFZFwU5LelLW gQfWjPq4RYFAfuE3qRKA4GX twUAD1J5hrxChxNsFoHBmbB RNsI2tz jYffLIn6Kf2+LrQeUW5isle 6OTBpi1RlEjm7Xh4FpTEmMO 5Si181Qt3TyEV7fJCqVG9Wp nVlVHlw URkqTiCuLCNytoEvN8XzdCH sXNUvaVNITBnnHcswq9OIpO RwKTUjBf2KHKC0V4iuexGpT lEAW9Gp V03doQ2hHY0RlI9BbtIxSM8 lf6GnbvlHG5HkulLLDGUzha jkdX3ySRtoBVTIZg5GzBU7x HMgWyAy LotsTZXzLBR7KcCrOAc1KZP qYBQlDsZzUXBaBrEjJCV2UT FhHbjwFkNuInC8GWQdAwbvR JD2YOW4 TbT6IXEdTTJ1KTR7PbD5RFZ cHHC6WXWjVCLwMLOkXaKtZX JwOBq5XjG2CPQ5SBFbCNP6T jIgNzIy XJxaCiB2NrZfPkB7NAPhQOD 4DvnoNlUlLWM6IRQ9XMPaLj ShWXGpWOT5LeQRSeSqLZo3O LX5Lqbu OYP3NwHuExZ4PIUbKJX0HuS hZwU4AUq5EIJpIHY0QyBtHT DhWJWxMqSpMBBeDXA2BeJ3J TEgNTU2 NPHbXNI8KOXjEpEcNUHiSWN 7YZPuQdb4AGO7CNY2GRPyEr e9WXe4FBg0WNYyHuBlNUDtM XA4DXGy Dqj6ETJ4BcHrXkIaCiOwBCF 0EyA1EhqpOQU7XNV1KgX5AS EtUi2XOB7ts5FkQpktXTPjX moKPDwK V5L9zUVxN2RajpKNURXfyer gnH3xEr6Bj475LlBzLZOaLP GvAGoTMRlzCeewF1DfBmYEY 0ZvbnRC Et12DSudUoN5VY5bMhWxJgP nSLZhMWOtCFsdJDvpv8bwR0 nuCZNpWQT4NOqqM5OlyTuuF zuBO5P7 OP4VAZy4Zy7CrXGlvIFIckj nCUVlJq6JUHETFAsadYFrQq C4Qj0TQOLfG1i4IAWiGDgmV XNjZW50 BGwxUCdoVUXyT1RvtRBnBmD yTj9EXJBimG2cHPZ0PGhdUR G4N8kgnAnrBgIiAHtpYVOaX 2lkdGgg NDQxCj4+HsWfZD3cgqogHYT uSZ7qydk3BGriKCloJJNmPs 5zvWrfD5KieKavMFAuFZC4K LS2iXQK A5Qnu5LEv113XN7EjmkihX1 SPv2BdPTpuOBzAHRxQyODA1 idd6FUbTTzQAJcLYdoFQ4hb 2Rpbmcg L8jylqPbl8rMvkFpFTcpAgn cSr0tcHBuq4NvgNE3y3PyHX XmDYFAE0gkHAVoikZqZYY3T CAwIDAg MCAwIDAgMCAwIDMzMyAzMzM hTOT5QHPlFXWnLgUxCzl7WB Y0OnF6XEAtKBD5XDL1MaQ3Q TYgNTU2 WTE2DsC4WHAlUCU9BDC8XuP cOSEbCAFfQsQfVFWoUZH2Ez K6YbfdQLZ6FqSnOlW7LINmV UT7Rnbd BsFdUXE7FMEvDPQpJQC1ZIa iQed4VvLxXad6KIW4RkPsVI lsUlJ0PvpnOkTsUPUmCGO0U DQgMCA2 NjcgMCAwIDAgMAowIDAgMCA 3DBSuQQP1RLUsXLM9JUFyOS Z6CVF4VNG4GFRsHBM6FPYxH iAwIDUw ZDVgQgWgTPFiNzI3DhI7VDV rDHD0LTTgMpMjWEPcHHOpCb leXGF7WUSsYOF0HbYyVHBvX DUwMF0+ PgplbmRvYmoKMTEgMCBvYmo FKZyEH2yscox0kONiASXbRd diEYIsP0EzUOQ7GrHIQ1Dhj HRlciBb L5AmIBGlBGVtg5WdCNi+Pgp ocCDlGA9WhFyPBO4oBOMAC/ e+j/v8n0CDy6fYldpjLiiSK AIkgRiW EKqLX91LJ3KFXErsFOCoZhM QyoQCgpvQxhJstQIBRQGJvi LlJTPqEeFHoyL4mFBOCm1zT CxxximU RzmBe22ITzEmSj/oTO07+e3 v3nPOO/ecc+/pocSFOPt3oT R63do1+ks5hw+j5fhURd9m7 kDe3agt iuNyQTFPLj9cTx/0N7/YuBg b4dcC0lIBRIM/ec+F6Tg/if bIj2PKcYV8UoSyEi0JXc4Qt 64nrSoI GEq391OieHT2SI6OIXRQWWD 4o47Ta84AxlsPcxL10WpdP1 2bc3wuUeXTTQ/V0HzPW+OWY W3RETJu 30b4ftb0bimpmHGRW6FAUSm B1IMh20n7iNIRDN20Z/hAHs ZFSFJ5qkGLAntz4SqbSN+98 TluLL6r NEVQi/Fr7C6MFRu9CwBpkqe gbRZ/T5Pq0W9rKx9ZE2sUqO e8awoVgl6JS+w3cW0uSkszu 9BnA+xC Wy+z99mi4N3almtfCHfk+YT 92uwRYa5+flbG1e6V47/gQ/ wzUZEYLEbVcn257ZwrWlAaW N7jYSvo AQxjHl6sAPwUOukQN8eSf8F BtDBM8cPiDC5V7LYpH77K06 aVAbGA7DFJDWG51gvuYl6fY i3WTqTf g9KPSXvIRfkLdMTiNDM3Vv0 OxIdXw53sbrFMp+VLynLlAE qfOp/m0NQIjLTAepXKUwpGi yb8IxQc BM1PipGIpSJIyL73BerIYhv PhyECJ+OqsD18NuzyNyDaMx FHsP2SgAJGZIopejgboB566 sG9vSFs m5zA/Y6v58Y8eUyQZ0Bniur Gx6mK4wr1LpihnCp/o19IIN byBMQuzZz2BY6G1eMlzwnmZ nm//JH8 kUIU0+zQgLup6ub7bgGrK4c VmdMs7K21qt2vtPEbDIeQIC kNbnYlEObfM2KxFSokYQyLO CvrI12D glBrYCiXkIf1bHzHCQtMBrX KJA6XBAs1EPwfFIKUrVv0KX 9i08kooO/T71QlbsaTvz9k+ qroXLqA OpqJ7ejxW/FUQYSx2GE5yK1 Kavitha/Yb4qtlPSwXRizWK/kR5 liEEFOOTksGak7zB2dq85Ri u+Si+X5 8n1Y+9m3foxRq5OgioTiYPB sgxQfQzbawFWgQ18wxkSqft b7Eq0hrLIP0ss+dZo5MS1Ah hrbE5Go tU2ha2cXW0tYsGerM+2obZZ dcI3GWYeEoPF51kjl2uS22F /Q+5DdAXLm7ZH8UATlt27eD RrNmmzL pLcUuv5c86Ugbb/XJBtUymd hgbQImpRaKYpdhkNktbyZvC r99s30WHjXJeotsG36jMQvN 0Q/6dPS EbaehdinmOkVaZfSyCaSWUo pAYXe0mE2dcIA44gBtE3XGd OecQl8UGxGujBBu2iLnHJuf axah0fy xMKM7tU8dhFzX+6gU+mTtsF AOHKuIX2p7GiwlZtTThE9/V xmaZllVpB09VEcHwgVRuxqS iW2RBpt aATBGaX8vNO1aiWSKuoKMny 2oBJBHkHFgooEFQpSBcmCJE HEcw/kQ6mqeK8kseh8V/Eq4 qLAu8mf wYFBRzJMgG7KuNa4aJkUAsJ lYfqV13PQoraKQIMIJogd8Q lBewV5 (more content not included)... [facility] Please click on link to see report pdfCD:[id number] TNNhHut3STZhNtXS2kipz1D SxbYVLcGZQxVGHcYFIHIm3A X8attujdHEPmMkRyAGFq YPQtHNpschXal0RupHJ5JZd jEn0AkeQrlE6cHZxGQ238iW OixnWoD11tgE3hZKVbw59qD v9HtjAf wFcatqFofPUvKUO2WyPwNoX rSxFpKEF6FHCdRCOiRKPwIR o+ZiqezfLmHdcREIClVV0ky xi8XWvn JRsoEWXjAy4ftNArt1QklVF 4q3HIY9CfkuIXKX5mJL9Rxa hiwF0Ne1reJYKomJwpIBRDG 0ZsYWdz BVZbRr6Qp713DjYbvWJxJRZ 2QETgBnj9KGKwSARxAXIpWG 4RE69dp1NfghmHoKX0vTQdQ nuMS7S9 ZG4YRJa3Ls5JrYAjEoN5DBb bKOVjyPtaMZ2zrGFiYCOhTw 4XRHHXLMmpjCGxMhS9Ce1AH WMmA9t7 ZMCrPEjlPVPrBO92XDmoTTk lNLGeC1OadEAxXwQtGl2AWS QcmV8cPGC5DZvaKCD4Y5olr GggMTMz IxmfEYDsQ6fvpRmlBWh0Aa8 +CjFoHW7tzce2UCEeh0LnVk f0Ee1SiEJlMJ4Vn813Cm5Pl GC0nAZb SG5LotXvKOgyGVzaQmPtKLS wubLgM8LyvSNaRPJokBKUdF YqoDZCAZcmKmbbm9KDjMOiV FBgQn1U HWC4U9nnotMoIgQEG9ZqA93 fcD0fEV1TxA5FveLhQO4wc0 AvqhvSD6RkakILIEYdyvyvr J6cVSKw LHWZNe6MyHO6kXHzZsZzDkv gMCAwIDAgMCAwIDAgMCAwID AgMCAwIDAgMzMzCjAgMCAwI DAgMCAw IDAgMCAwIDAgMCAwIDAgMCA wIDAKMCAwIDAgMCAwIDAgMC AwIDAgMCAwIDAgMCAwIDYxM SAwCjcy JuTpXHZ9UpN0KkflZSPuDDF gMCAwIDAgMCAwIDAgMCAwID ZCRYPmKMSxCXZ1RUGpWTU1X DAgNTU2 IDMzMyAwIDYxMSAyNzggMCA pIGO0MBRqAsWbVUB1OGReBQ NwSCC4AYY2HZKwShEwMJQtL SAwIDAg WLZ8QRUfYx7HHI1rl0PbTds rHYIhOsqSYNfZF8Z4wHHyG7 LijhDXZNIlvrkqcJ8mPu4Jy 250TmFt ROSpQOZkMKsPUFdmIbqxI5S tWiUIN9HvnxSGMh03ZXngLz S9VR0jInOgCoZuQRTiFQBeN QovTWlz e4luR2ptSSNbMEI3GSlbX7J ffIdgSerXM6U8JW0FADw7Zi 0ZuWJnbMSSwotnBAOsFf0TT XBIZWln hXDbFrP4Tq0TEKJmS2h7TYO xRYmpDZTcHT42HHanSMvhNR MaX9OfiXEtUzXtZd6VHTSxr W6pTTH9 WFseGCT5T8potBhsWrEmGEe zEOHvD6qpjTtgAEZzCg5+Cm IsFE5rkzr4LGStc9ZgDdb8N y8NbRLj CV8Da629Fd4HkKN2oSVnOV9 UcnVlVHlwZQovQmFzZUZvbn YrB1TxmCKsIAHCJ0FkwjJ3W 2hhciAz MgovTGFzdENoYXIgMTIxCi9 FljMxGCgfAjOxL6dvNH1pbH IwP51caZ2fSl7Ja376IXQzM 3JpcHRv xpG4CLJcGetwS6hakPveWXn vJki0EXNiRAPdXJWdNQFyDZ G0LSAbHZHuWNPjARZtPoJgB yR3BOHb AzvmFYS1ESH0RsI1RJQmOMC 6TFY8BnO8VBPmPCJ6BFI0Ii C6VPGaIOW4KEY6DGCcTWMqM AowIDAg SWD5HjkmJUZ8YlCiDyKaBWC 5XaEsGVx6OUCnSNQ9SPSkOJ T8JuSkRZqtKqe7ArInVtj0P IA6IsPn VGsqUgR5LmmpUhIlFDmqTkD wZTh2UDIjBJJeHTVcRZRyBZ wtZIUhVNH0HIExOBK3JNFkT HL9VMDs JXJ9DHB2LIF7WOHiMIH7RLL yMiAwIDUwMCAyMjIgODMzCj V5EnM1VXEqIYQ7MYUnZeBjW DUwMCAy KyfrWAD7UQAuSGJ0XfOyETD wIDUwMF0+PgplbmRvYmoKOS ErQW3iiwd3KHkjRJvcCAPhJ i6lyUKb j6NlhQU2n0SVD5GpsbJEBH1 nSC2NurihbH3Bk5gcADOJS9 FxJTvsCRRfOo3Qg010OwNvo CBbLTYy KFSrPoj1HBUzGQKxNBE2Yf4 CU83uz2YnxopVyZU3uIRwAc cAI5H1RZ7YNCd1Wf8QtQTbZ vL5DOcr NKKxjEuaHL0asDUnIYixW1P fPSBmL2s4HFvjAprpJHalwR pwiAO1NMrDA5CgU0VvoPL6R RWJF9Js m9OekwYpVKDmBfaoSHVvECn nLwIvDTZRS21ymGyiJLInUU EkNPBIV8W0B5uoIAVvMLJ5K Qo+Pgpl bmRvYmoKMTAgMCBvYmoKPDw KG3U3xKTgY5EehvWJN5Z8Hi P0uGAiZ8YdkRYOnFYfWe6ZH BTxYr8i kETjYPVuGKoiXy0nWO6WCs4 YjGLueIZwFCFcUxBIA9ezg9 MNoENkYVRpNAbgEM3wl6Owu pthR9ml ooHhs9pIsjHhJMdaFypeLh7 gzRItg1NtfQQ0r9AbRQQlLV TGS1xmOMXquoYeNNV3ABFbC DAgNTU2 IDAgMCAwIDAgMzMzIDMzMyA dGYPhUGDnHyX8DRHbLSFaJC AwIDAgMCAwIDAgMCAwIDAgM zMzIDAg NATxTkLdXCHxULqaUpI5AeY zMbCaISvtTwFgZOKvXNR2Ag txCfFeIBV0VJXlELCiVlEnG DgzMwo3 AnJyWka9ALI2JkH8XeupJxJ eFMB0ZiF5PJYfVtCaINUtIG I7QLXeJxC4KSTnPRYjNQSAB CAwIDAg ZMM5JPWmDHA9JNIhMVJ6WYN jWrTjMBWwPFJ9BLBpAsl5LU PkBMZ2QUY7OYY3RJrLYqAiV DYxMSA2 ULMjPJBpXLrfUTD8BMMgArA 3XBAuUTN8KFr1KOT6IGKyMB U2XT4+LjTtGI0bpzhyNJHmK R8dlhm9 VYzjIFgbFNZzBe1ljYNkv1N ffBZ9t5UFD1SgjxEIID7iUO 7HljeseE8SmYDqkLPETSzrG gvsE8Xf FeYLA2WnehMMBb71IHxgBLW 8XZ2kOiTqJYJ5YMB6OSlzAh 1KmTPgsA6gZ7rudUhoLhr9X y0HoXOg MQH5EFsmS2XmyDCwWdbDQ5x 6ACdzW1UgG1kbCX6uWgtcS8 FtRIFsY2n9SFoiHzbsRUosm WdodCA1 EGuSR4QqO5BigAM8VQPGQ5L to8XdeqJqOLVvPdjhSHOsQI rlQwKnVSHWU65kjGjuWAWnY DEzMzMK V7K9V3foLFFtQKL7FXa+Pgp lbmRvYmoKMTIgMCBvYmoKPD pAM9C3hRLiL2PydtBGQ3H9V aU1qHSt F7SegAUHbWPgNv0DDEEzVe9 udCAvQXJpYWwtSXRhbGljTV JYV9QugnE1L4hucoEeZbmqL GFzdENo LVUyIKW9Td1SnuRuTGxeRlH jS7qwAX1uiOUhH99giU4rHx 4Cv731AUZaC5UfsRGqiyLnS SAwIFIK M4uyDIQefuWaEBM5TSVkZWY gMCAwIDAgMCAwIDAgMCAwID AgMCAzMzMKMCAwIDAgMCAwI DAgMCAw VQVsUYTgAHM3FlRbVtmpBWV wIDAKMCAwIDAgMCAwIDAgMC EcNZArACB6SkHeILQiFBVjA CAwCjAg MWK0PirgMbv6AAplSkY9Dhu cPOLtJIAtUDIpCCG0HiVlUX UhWVKrVgXwFLFgVAU3HyVuE DUwMCAw SRP7VnMeIDFrHNOnTAFgGAU lDnNgDOhtGLV3YhOfMAXpGa OfTMKdEix1HUN9Pa2+Pgplb mRvYmoK NGVqEIWqDwgYSYiEW2dtcqu 3fMXtQNPlMqjiZHHyY3ClDF N8HwEHC2UbvWNtcwYjG7UlV XRlRGVj f0ZsSEg+KchkkPIiVL7NcCf FGO0eAQBFP/e+j/n6b0PNw5 wCecsjAdmEQAIkgRiWZHfJR 01CF0LK KJsvDBIkAlIQyoQCgpvQxhJ stQIBRQGJviWoCWUqRcFMtb D0lFOFQk3uTVddbqiJUrsPw 99NMkCn Tv/oTO07+z2h0rQJO/ecc+/ ymeDPIIx7jBK65zu0+ks5hw +u7rjWGl7n5fZo5rdnwsPoC ZKILm8k Wr/0N7/ArOel0wmO8hWKNAB /ec+F6Tg/hxbZg4IYgLO7Hq IdBy9FSg3Dl17tdRmDZOd03 9MwlJF3 FR7PRBDSTBD9f91Ui36Wutm HxxJ53FsiB08cv1uzUrFJHF /V0HzPW+APHI8TQPXh18g0f fc1fxdd rWSFQ0NFLRdK5ASn67y6sFF QAR20W/dQSsLGPHA0rjKVVy ep6KdmBX+42TspMT9uEEQWx /Za9D6D TXw8BxZzmsppbVQ/N5Yd3Y4 wXg6HB4wNqAh8luyAso6KE+ w9aK3kVeufd9IcZ+xCWy+c4 4aw1M3g gmtkPEor+EX28tqYFg9+xlm U0b5Y42/gQ/grSSTFJExOok 189ThpRuQhLV0tKKtiXZnyL t1iIZmP KohOZ6uLk6QLvDCH8tExJY1 G7MPhC92P47lEDuFT5KCCFN V05vybUi7qIv0NKnRhu6PYK ZlHGsmT rNVfOJH4Nv4VxLhSv65swaD So+VLynLlAEqfOp/z7QVEgB KQdfJIUonDymp6ArBtMM2Kv qOWbEDZ sQ82MxdEHvfDhuBNH+DnfE0 7QhelGvMyMyWBuY1IsNMGVN bbgwiegU350hJ1wGZux6gS/ F3i57Z6 gOfCY6VzrbiGh2sY3kp6Rku xvUg/v33LZSkiMYWpxTq5AZ 2R3pXe (more content not included)... [facility] Please click on link to see report pdfCD:[id number] BOPgOmo4MBOaUxAJ2wlen1W StwALGcBKXaPYFwRPSRQa6N M1gygqanUKYdDoCbKPNg NRNpCDlvmyUqn9VjpYK4XQk aTl8HdcKmzM1vBEhHW353pR UhjiRbI65bgJ7uDSPvq61mX j2TisVx gMpwqlRcwOOmPVM2HuCwTtL hVqDxPEC2BsPtWGOtPVYbWZ o+LstvilHxHliDYJMyTH3hi yp5FTbp VAxfUNFgTt0pvVGcb6IxaJU 7u4QFB3CezcQYRZ0aRS1Aez xyhO7Bi6siIMLhhRxzBBWUS 0ZsYWdz ZYFfOj6Rp512ZuSnqDUoYCM 1KADgRaf0ZCSmWVIjJPSbOF 8BK78cj0YgbadWuIL5qAAnM ykGU6I5 ZB6JAAb8Yo3WpXGmHqD9INl qGPFrcOsdAE3vxNKtMGWhYb 5DCJEBGKgkxJJgFmQ0Qn2GX XBqE0a8 MGIwWJczHFFgJN92XWkjGGu sMSXlX1MsiDYmNiZmFo8KRL YisR1jJLX9CWgtJMM6B2yet GggMTMz WeyxMHXoQ1mqlAyiIAj9Gg6 +MvJbBP7skkj8PFKhh7TyPd o0Lf5FkBVoSL4Ao427Gz0Se AV2qTEt LP9PeuQeEQkyKKpoKrFzAMD nnrQrI9WykJJsPMWhrEYAaJ HdhLELWKpoUznaq3BFhBPuC WJtEj7J SUP6N6jeleJlZNSYP2GyG70 wwO5fPV1QtW3DbjNpRG5bt9 WdxjmJD9PvjeCPBEQqjtyqf J2sVHFh JCUDYw0BsYK3eIEdGgRvLdk gMCAwIDAgMCAwIDAgMCAwID AgMCAwIDAgMAowIDAgMCAwI DAgMCAw IDAgMCAwIDAgMCAwIDAgMCA wCjAgMCAwIDcyMiAwIDAgMC AwIDYxMSAwIDAgMCAwIDAgM CAwCjAg MCAwIDAgNzIyIDAgMCAwIDA gMCAwIDAgMCAwIDAgMAowID CzDBG0QXAbIBH1ROQiWYH6T TYgMCAw ZBMrDna1LCSzNDR8TKJmLIc 5HcChKUF9YEMhLSXaGOS3ZF T9JYLdHfHaXE4+KxUuWT9ls oe0IHBt g1QkLpt9Af6MtAIwLW6Vg06 7SVWfJ8NhpNWzkzmkRd7cjY 8sdFTpA0IypOVrYADRC0VkR WdzIDMy Ln8Jj421HuZdfVShARG5BVE sBbG4ELLxHGTuHMC8VQ3NF6 9lk4KubpaLrIL4mDLnZzxQT 0R0EX5N FAe9Rm7KnARfCzL3BBsfDFG vcCtwRX9wqWQgJHdwF2JqGN HsA8b5VZjmZizjHTdqhYlrf MR9HVhH V7NlO3SykHJ2XFEHN6Ydo6Y lbnQgLTIxMgovTGVhZGluZy WpHGTNO44ydQvsYODpUSSwR EAER8U0 Q9hzRYVmNIT1WPt+PgplbmR iTyeEFZQbGF2zodm7KPgmFM ydGXRaZm2cxJvbO4UrbXjqX SAvVHJ1 CUX8gPRMD3Blz8WGg563IR4 IlcpqbO6UUg8DeDQenVOoRA HyAuPRZ7kaq4TUfXIkCYRiP WouUH9k u8QdmqdpV4xwabJsc2nSlbC ySIqbZzwiIf5qqNXqa3MhrG R9c8RhHxAqOGJSV9eqPCTnd yBbIDI3 LTRaIBFdNDKeVMf9VQIuGND gMCAwIDAgMCAyNzggMzMzCj M1FXFxQgndCHM8SEG7ZdW7H TYgNTU2 PIG0YaQ0XEIzHLE8IDO4ElN 2WECfSMB4CFF1QVAeTGS2TG QpIpX8PMB4LXGwHBC3TbhiH fJ2TKjx OtG1JcIbIlB9KTAjBGKoCBi qNiSfRIRzThJ7TUQ7YgH6Rm EISfPfDWi5IYG6TglvRoa5B DcyMiA2 UxbgFdZkGOgcIiUxBQb9DVT pTCS5XrDtOPIdGCHpVqRbYA QwIQE3IvE4YFYwCSEbDBS6D xU3PYZk Xoe8IKR5TwH1QWNzHnYrKEB qMUXhXRUqCoR0IfUMFER5MU E3QwQ2MZAkIPK8CSAsMzE9D DAgMjc4 XFO8WrH6BKHhEgJvJXFtLFQ 8DUQkJm9NGK1nw6AmVptrEI AuWgqVMGnIG3W5qDWeZ8Myg nREZXNj jkxgmG2kOa1Ty620KrYoEYM nOBUrRQusWr0bCI6GDm6AdV OayfMeZojrHv5wsQNZe5eoW b85Hinv UQK3KpSsHRZfHFYpXTBzHg3 TdPUnxT8dD7naeOwvYmo1Zd 1YiXDjQEF8YIpmW3PzyDSqX elMN7h1 SPobE8PrE1xqKKHUJ3GfbRz gjKqtpNY0EMRBY8kHPNwnvD SgNFS0Dc8Sh0YscbBqPTM4R c0MAYCo KZ25BE9yPNUZK1krOCMtzth hRWUnJl4YELnGtXY5oITsBL OhRt6JzvoRzGG3yXE6XhhUD a4XDT0k o8QxXnGhUBJjs0VzDjb3By4 QtOPbZB9Hb500Zy9IeVX1zB KkQC2SoiOiAGnrKUmfUhIlR UZvbnQg Y6IifDSeAMZkyFCOTSajTao dv5QVbLSqRCVxOd4YHOU7J1 zttaXaWaMMT3TnY03eeS9sZ Q2EwW7O ugQzBP9xy4WflbcXB5QgwdB HMUSqtfesyH2aZMunNECBWu 2ZlPU5xMOnKaFqOakqOMQyA IR3VnOm IDAgMCAwIDAgMCAwIDAgMCA zMzMKMCAwIDAgMCAwIDAgMC AwIDAgMCAwIDAgMzMzIDAgM CAwCjAg SSDpBUibXpX2MtKiDdEyJFu jGnK4HzxzZzTwROw9KDO1Fp SxHwc2HCCvHCPsZXkqAxh2J jIgNzc4 KKV3FdFyMJgdPeM8LyllKdE eWQgeZmKbIAGpHDS0WfstYR DuHKYzCZmjNXMgNBY9BYHqI jExIDU1 AoA0YNYbEET7XUWvUaHaMWX cOGOeSjxyWAH7PVAjOtn1NY w9GYb5AKMnVdTyDGGwICKwH AA8TVW6 NXCfCfFmXMFjQNP4NHNmSVE 6MLK6Nh1+PgplbmRvYmoKMT OmEVOdMdnWWElPF4mdipt3r DEgNTAx YrqoQIZxN6QwNTA2AwHUO5W srBFjcgDeZ0WcRSAsBEBer8 RlXQo+IvhudGHrOH7JkHgUP M5cABZT P/e+j/i4a2TYu0rJsyraQkr MKEAdfYmQQXzGL58AJ0FSGO svDBIkAlIQyoQCgpvQxhJst QIBRQGJ nhRfRYClVsFStrD7bZVCRk6 bCDfyzjqSCynBm02PEiOjBg /oTO07+y8i2wUQB/ecc+/bj wABADu0 wJA89ty7+ks5hw+m8oyXKi1 i5aPi1ypixkOoEPMTWn4xEh /0N7/GkCre3cxY5sCDYSU/e c+F6Tg/ giaBa8OGtPT2WbReRh0AIs2 Hi68bmSyLQWa520BnjCF2HU 1RHBPBEWD2v20Xj21FqxnDa oR70Zzi P39uy3gnVoELXU/V0HzPW+O ZKL1KRVVi74u8ykh0iedjgQ XVU8DXTUiS4CIu12u3xCVMZ R20W/[place] DhAGZVI8hcQGFfhw4KsiNO+ 34LslTJ1bDCQPf/Jx7K3STB t1IcDgqwhgiXZ/K6Cp7G9mF c8DQ6kG gSt8dnfQbk1IG+e2rB0iObm gp9BnA+xCWy+s85jz3E9ovm tkPEor+FY41rrICl4+xlmO3 h2Y78/g Q/ccRVYGDDxGfo031HlqZhC tNQ7cXFpoSHjeHn8uYYvTWe oFH4bYe3FElJMS5uQkGY8K8 CLlB06T 05vITfRY9WJFUML72lzoHy7 cIk2DXpSnj6HCFSuMMfuXiQ IcRYY1Nh8ToEqMd32rtkACv +VLynLl AEqfOp/q2MRXmUHHdxTQIgd Szgn1MnKjHJ2YngQIqEQRdC 38HuyDTtgPhyECJ+OtyJ02H xfgGnYn XcJJeP2OxISLSYcdvjghqX6 06pV0sYPdd8qH/Y9s52X5hX oCH1GvsnqQn8tI1vp8Mqphf Ug/o19I SXiwFBIwnFq3ES3K1bZeovu kTnm//RR5zJCR2+wCqGjo8n p8ajPzK5nLcaBl2N21yz9xk GBdWVhX QVdTaaChRQtoF4NsNRqoAGo RRUkpG73CugWyVHcUmJy3xS jWIVyBFmRTIG9KXEr6TEkwD CLHsZb3 WY5w24mqcQ/A44YvddwMrd1 h+ezeAAqYGyfX9iykL/RFPJ Vh5UG7dH8JAt/Pl2fdtEOnP UmjJZ/k U7bpTPJVCNyrUje7zZ8dk11 Llu+Si+X58n1Y+5r6dhlRk5 IqkpKhTFWmozQqDymblFZlL 57ofqVf lye8Jm9dbLRI0zd+cFa1WL3 LewftX7XiaV1er4wHP9aXpA vsU+8fzRCqkN4GWPlXfFC36 aoq5pQ0 3W/Q+1BqDZVr7OI6OWMak77 wMDoUrozCoFrEjb6m19Jtlp /XJBtUymdhgbQImpRaKYpdh kNktbyZ fEj49w33NZeUSmflrA51zBL oM0Q/6dPSEbaehdinmOkVaZ bUxHdEVUpyLMUs2jG9xvLT4 5gIgA0J OdYvoCc2FIkVcdKGw7yRmCY tacucs2cupDHC6sN6eoUlV+ 6gU+rKxbQQEHZnSU0m9Wjkm IgATzT4 /TauyNscXdQ66PGrSrfBWup tJbA4TOobsLHJBuQ5eZK9fz MKComGDqh2kGRJOnORmnaTH QpSBcmC JEHEcw/rX1yrfH3caou9D/E h1cTFu9gcmETNZtTAtS2AnQ e4oMyDTsOzZgtS01KChrmYP UHPCzoo 2WuKakO2Wo9PnLhqCzESyQG ICgKPB/lDxPuIPsRbiLOIM4 oSRSuQ0OxVZR3AGdNYV+rLc hNtibb8 9i8d6wOG1mxy6b2ptNowA3v oo0w6SvjcvVmWi/yQsM6F7g NsrDZG (more content not included)... [facility] Please click on link to see report pdfCD:[id number] JFTgIst4ILOgQxNE4qlin1L KknIULmWVIuZRWxBITPXu3Q Q2zygajvXEVlLtGdIEPi YRSwDCjjocWdp6BhqZC3QUn oHk9FuvPneV0tCWzKN729oP GcwgUuC02pcS2wQWGfs73pI v6VslFg kQekpsLquFLrZWC9JqBgEwC fFoKqHJO5TqFhAQLxARPcYD o+HpajmlJyLnhDAYTuKF2qa jc3JAsz BFsiJDUdYv6woHXul0FfxOM 5l1LFW1AixjDQDO2hLS7Goj xdcD7Na8kmOHPbnEmhOCLGB 0ZsYWdz UZXuCy9Dy160WtEhrAUgMFH 6ACQvQfd2KPLsVEFfXLCsYP 1KY36gu2NftqxHpSU4oAUlF skLT7A9 EJ2FKWf4Uj7JxLUgByJ6PHp zDAExoKtrEB2daAXzLESeZv 1XRFVFVMdlqQGdWiG4Fr5BZ LWtW3z4 SQBkQXhoUFJwLJ85QObdBOg lNKJbS1UajYDdLlLwMy2WGZ OruD3jXDX3BLpiIFI0S7qgp GggMTMz IakkKPYoK7dxoRdjUKl1Hp8 +NkNsBX4shpz7AABux9LxBo o7Cu9RvHBjYG5Nl719Jw7Ev EE9cPPa VV6ZvdAdCChlJBddJuUyJFC lpfVjW8MlwLBnIMTseKSLsS RggYJAXBgkLfswb7FIyXDtR DMjRi0Q ZER1H8qklyHmXpYBZ1VhB46 bqO1aUA9PfZ8GypTxAZ0ap1 TyxvnTS7VfgvAGAJChesern X1hKDGt QUGHWl7CfII8hAHyHjDpSjh gMCAwIDAgMCAwIDAgMCAwID AgMCAwIDAgMzMzCjAgMCAwI DAgMCAw IDAgMCAwIDAgMCAwIDMzMyA wIDAgMAowIDAgMCAwIDAgMC U1PoXtJdW2TWRzEQHzJQQ1U CAwIDAg SPB4DeQNUZKdXEH2MtSzLUI gMCAwIDAgMCAwIDAgMCAwID AuPDDqTmTfIBYoHZC5XvBrA FZ0IzK3 KJAqLXV5BFOyMtV6DOUkXVV rSpfxKJPtMELjDEw2VdBpDV Y5AKOpEjJpNNGnIjo9PKY1M iAzMzMg IQTxYDOxOSE1EYL5Lh4+Pgp unaPdJwpFYtSdOJ3zekk4GK hcWAsdXJQcZm9ieSJxt4Kdf YX8b5XS H4TodrWNBK1pRR2RyufwhO6 Bj0zmZFWIE4NnZGqbWMXvAv 1Gx062JyCjuMCvLDWyPPKnT tc6XSCc YXPrVWE0Ui6MC35ny9Jjfyn PqLJ6aUDmVbpIO1I7IM8VUJ t0Nl6GpJGdPhV7JAooYSBwh GceVQ2y dMJcSNvtS1AoUQXvH2x4WVi zPforBAaglOzppZD0WBgSE3 DcK4BhcEV9FYYMH5Axm0Iak nQgLTIx AmwpGOCdVZznUkIzLFIHL98 nhQrnZLXkTJCeZPBAI6O7S4 gbFVPmZVP6TTf+PgplbmRvY moKOCAw SA0vepe0MIzhUNftVYPuWq7 svSxoN5AdeWrgYSQdLVL5JN B5xOSQC1Dbm8UDp910YP3Fe ejmiS8A n5wsWHCOT7GifcV3U1wkweV zMgovTGFzdENoYXIgMTIxCi 7JgvWaDQhdYgTbF8ccYY3ud JNjF85p hP2lJj0Jd050NRQoP0UeyRD xoxY6FDRjZxgmQ6smwGoxOF stWom2DADnTUC3LJIsOHOhV DAgMCAw IDAgMCAwIDAgMAoyNzggMjc 2RVY4WhK3GLJuFEJ6GSV2Re E3VJFfCXU1VVR8GbM6OFJlF KE7WZA4 NiAzMzMgMCAwIDAKMCAwIDA nMtJbCSfbXjX7TrAeGhEuMT E9LuY9QHOjFbs4KZcjGsIeF zggMCA3 RsTrFtZqEZqfHub2UrBuYyj 5JDU0HaPaCTztGsJ9WttvGa IcEUczTtEdKFg3UAJxGHRsP CAwIDAg UZpqABFpNQP7AENrImWfSQE 5EqS3VMSxFAR6ZQSpJlBiFI GsXEZaFaskJHY7FJOgYfe6E Ew4BIc8 NHJtUcYxXPNdXHE4QDZfXtp 0BHW8FaLfKqWiWyXqMRB9Ng G6PnxeQQJ4CIB2Wb3+Pgplb mRvYmoK XQTuLR7jdau8JFaiCMpfVTP aYh7jmGLjf6UvpRH6l7RSP6 VoyvAVZK5gLU2OexzlrX6GW a2ZgVNn ulJpVuykRy5lvOCUy0ofGr2 2NjUgLTMyNSAyMDAwIDEwND DjMg5XuLZvgI5nR0nytUskR mp2Hq2U zHUoRAF0APotL5PzbDYgNrs CV5y0MTwfS5YjG3jxAXWEW9 NnfYqkdKjgqPP7EVPIS9hDH WlnaHQg DWC1Ue0Oj9NxlbHxQAG5Kb6 JIFRiLT63II8vQCVKC8nuGD VofubaXUOiMa2SPIzCoNS0a CAyMDAw Jh8YwbwRmLO1iEN7ZMPVHb4 RVS2kx4SwDmQhRARck9FfFk a1Md6SzQQfYQ2Mu417Et8Rj JU0uIYe SX5HkoQuBUokQZwwFwFqOOF svfLnI8PmyFEhHCYYC7Hhwk H6Y9wwbkDuMgmhMXFgyMHkU XIgMTIy Se2BotTkIZpsVxCjT2fvCE5 bjCUuX16qgO3rCg4En901FJ KoE3NnpFKmbkW9QHYpAxntB 2lkdGhz LXugGkt5QBFyJNTqALKvPNh 6BKFoPYEhNAYwYBVnLDJ3WJ OiUpMSRll6OQG8DMJ9AYFvL RW1ZXQ5 XxK3PPSfZUW0CQW0FvS6JMS sILX9AZRuSPQ9CAK4QJYhHR YcLLnjGIDsEUJ9LrhaBjJ3C DcyMiA3 GuUnOeS3AZJxGWVgRPZlZyd 7HMYiUMTvLGnaEku6HqJcUZ P0PmkcNVP9UlYtJdL3TBZyS HS4DkPp TKN8TZIeDRQfJNOaTJKdONN JNNSeYOUrCCV1TVW1ZlW6LI JuUFM6EFB4UeKyIafiGOB8E JA2JpNw YlToLFX4XOXiYzOtDClhZmz 1QXIjRCT4ELC0FrJcXBRgDz Q3MSLeWan7KDW3XoG9QUBnG zIyIDUw LBP2BSZmSGFuZV6+CmVuZG9 ypspyGZTvPH6bgyf9BFsvIC UkN5SfLSQ8XZDeTs5UGG9im GggMjg0 MAovRmlsdGVyIFsvRmxhdGV EZWNvZGVdCj4+QkW8cwIjwZ n73wBKgNWD6NR/092D0VLf5 0nKWnjL IoVEReEVEDKG9rMDQbvK7UK 3nOSctPFtWYnNwLDDCToMw2 VsPbjYBCSZ2XoRTuhJATbNf rKB2P5B i/6Ds0NDUoaMVsyw/b33kgy hI9M/+yu4fJnq/q7921tjbt n4wwsnkLYWs5wNPL11/Trtx gyYg5K5 QiTlNTTfs+rNm0EDItqyLxR 7HI9lM01U/+NuopjLROxyY3 978tY4A/GpR6n6luuERp3Ki J6K5WT7 bKCK2uP6a3kUQWDvXv4tRp4 dtGw79ffKzM/h/aVlagn9F1 fKU+B/Cf5a8+o881PXemlqy Pma+ub5 a739XFdRM4iH/23X+W+1TIP UMj/zpSax3UborvhLQS1bIE VTO++yfSgHMDAqp0+lHsqmN ZY+hx7C BsG9yF0ifj2RMWcBjQzxP9B 5sNWCmRWjnbVZ/OYcdqmd2V 5+mp+5dWSDp5x1iUL7SD5Sb /G20It0 aU5Fm0F2X7vfpT71Q7ZxhXY usMmQVvYJ6+VI3ZZyyvOEVi 925Psr+pD+yhJZPguxk/CJ5 5utXOzV JiTgNeDylvFUJqbBeECf7QB V2eiMSpAAC/MdvIMb/LQQEP HwCpdqvjk7OKajttMTohvRf N+jhVi5 fl8ajXaZgujuQMpIs2UMpr7 jjHk5LP3iPR0YTLmhYGLyJi gqQSqaynA59iJyjxhotgDnj SONUmk6 djLioBtkEAu80qAMHXj3GG2 9Lg4bLtxTuvzNI+vS9la8wO 7SFXQnFmLWNZPNYksgAcgat wneDR1o g8Cp7QdRxK1lo6oJ+3wCqra oAzYyEF7tE/Jj/G3+Dv+Y9/ LP+IgRBU8poPXixWAQFWdGq 5L5tUOw CUnTE3bkAUdbiW3Vn4bu3UI izN4sGTlTswnaRH/yinMqjU WhBhiluTwakt7v4HGlIVYj7 yKQY/Qy pIc+N+lDDL0UZfylMdeR9UE ElR3pXqbClSMlMqg7ah9LZc MnoJY4gDwdCeaT+5Z8vksVW lHawf2Y XyVfyJfwlfxx/gR/ir+AE9n FT/IP+KMY3Ps7DQGFOP5mIg ZSm1WUMDAgIcBCU1UE1rJsL ejDvkWL s9v83yBcioM+GkxHD9HEldw XArJUZx0jTjeP6xT5Spvztd ohIyoh8hm8fCRPhjhM++Qu+ DM3dfZn JCsTIVOVacpCpUlZrxxWepV M0AGGBabQygutZo2dJ+nV65 8ej3T3S+k9p3r8yn1Jdwyzz IWXZj57 EIaxwwkjZZW4ooY6GBp4W5y iOKhCPEtLhGXUJNUIUcolOs fIbvzGJ7RW1lOBvJZkqUDB+ oQDUqo8 2+1cr1N9bFuEcxzmlGSbiKj oXNpxCvrVQtCu9LPpWUZ5Vk vh05OqzObYeuKAgYmbMbf7q 5fPTO33 U9xNj6JxMd0VKGYO7tUxqR0 5qV3zB60oWRyqhSWBT63sTA A58IRXgrMl72JhqolBujndt r3nKvZ2 PtTCYn5g2kKPw6r4eR92tqf aK5rUjFeMb8nFSg9J+TbNsW cRAlUFnz9SWrd7B/kWuRJ1F pZ72REf UwJl3DElCrfUGXYxF/YBe4E 1VCbnOwcEtldmY2UDx4w34B zueFlj05M18wGj3DPYa535F dcmxSbJ Uk0Jxl5eD8P3tJ7hZbBsaLI 4WEtEoZDnEe6Ws1EQPI4pnp Ij0TEz (more content not included)... [facility] Please click on link to see report pdfCD:[id number] JVMiXeg8CGJjEiDK5uytw0A BpaQPFhAOVrCETsRAEJNj7U H6molkgfTLMtNoShOYKt HOMhVAajhkWsm1RauHJ4UVs lEn1NwoVyiW1yDVpHN634xE PajhQkJ18vwY2tHYMsn28jS u6QqrHo cMuvglKkfEGwAXV6AgIeQaO xMzExNDIxNTItMDUnMDAnKQ o+ZpvavyGiEtqNLJNpIE7oi zf5QXzi WCmgBLRcJu3vwUCsb1OxzKG 9j7GVT1RhbtCMJD2tMJ4Hqc zliV4Os3evSCUoyKegNOEAC 0ZsYWdz LSDdQo4Le379HwOseRJjMDZ 1IDDmBxt4CTUsZOEwQZXpLM 7OU18tb8JllcwUeDU4jCZsW sqVU2J3 UL3QSSg1Bj3ZcBCvFyT7QAj vWKIdiNjwDE4giITeQMLcHw 5OGBTGDGoebMLmSoV9Xt1SP RByA1d3 BABdPJcxFNJvCE29ABeeKXy jXJBiG3LvnXJvInYrBi2NXS LmhZ9rFLQ5VOugBPS5M2nog GggMTMz SzduZDTcO8gthDvrCPz1Yd1 +YmTwHP5ijmu6YKNsb4PuLx i4Bz1ZtKUfYS2Lk658Bp0Qn LF1iKSd UY1QwtXvNPuvMKmoNqHuJUZ lfxYxU1AcmEOyNBCwqYNJhN VljDDKLGqeVjvqc0CCgXVcA IVyLz7W OCE4K0xivhPdWpYVE5RxW30 toN4iVK0DuP3KhtKjFX4fn6 HnjzzCN9WylmVFUKZtjkotv D8pQNNe TMBYZf2IkLG0bQLhJsLmItg gMCAwIDAgMCAwIDAgMCAwID AgMCAwIDAgMzMzCjAgMCAwI DAgMCAw IDAgMCAwIDAgMCAwIDAgMCA wIDAKMCAwIDAgMCAwIDAgNz DtRTA5KiUjQWVqWRZtGieiJ CAwIDAg ODMzCjAgMCAwIDAgMCAwIDA gMCAwIDAgMCAwIDAgMCAwID LBSMSvBEXdERT9MSMvSOB8I DYxMSA1 NTYgMzMzIDAgMCAyNzggMCA aLQM8CBA5SNyRRgLnBZNeKV ExOQHtPhe6UDEdUtFjRYPdC CAwIDAg PPY6CD7+VhUoNO4qwsw6DHR bh3HgIas9Qv9HnWPiXR7No4 23SUWqB5VykOYnpnvsNi1fi F3umCLb S2ZvkZCuDIEsmFOREEzqJip dZ2CmQnTBC0FinhQLZv49AO ajOlQ1HK0aJjAyQxKuJGDxJ ED8YQuk SWpqs7agV0poCYCvDTW6SZx cY8PjdNyuUflDV7J8UR0CZP a9Jm8StKEbvSZDowhuWBPzO m7UQPGR TMyanTCvTbL2Xo4NYQUqD5j 9LMTrMJueFXFdPP45EYisEP ktBRQuZ4YnzBOnBwOtFm1KT KEnxY0a RRI9HCbbPPD0E6uokXxvWsD kKJwjCNMuJ7gksWuvSRo1Dc 4+FpSiKU9ijpi5RTHdq1CqK gw4Cy8Y aMXbOJ7Ts536Fh1JnKH1gAY hLK2YqrJySSluSKkrAlNjTA XygnSeZ4RjxKJpBPMwbXMPT AovRmly p5HKqEKpOQKrIy6LSDY8A5p exqQzHaZNE6WqA07bgY3gWU 1FlF4GrdLgWY9sd3SeivmIS 0ZvbnRE NTGooyancL2eEBeaXZTPNu0 JkWB6mKErMnZpVrfjJJNkGF K7KvLhWVKnUKSeAXEmIJXuZ DAgMjc4 NPYfLoqdLzhpTij3PCP8LkF 1KSTsILR6OTC0PiY9OYYqYG N3YDBkZFP1HVT0LaB0JJGtH zMzIDAg HNIjEgJnXNVnVGsmChD5PvD kCqErMTryJrM9FyvhSKN5Ux qmHaOkQSE4TGByURuzLwF4O TEgODMz ZpudNeT3GdolAfC6EXu7GSO 6TtKtWxA2MUKeUZB8WaFnZf E5UNr1NKPiSUZqFxReTDNqU CAwCjAg PYBxGRN7CmA3QJFfFLE8GSK zZVB6CGBaPlVnYFLqJPV5VI KaRqy5XFYgYYU0SKW2CPZ8I DkKNjEx MHTdAIT3USUyZnEaQBA7AIM 3UXAsSuTjFFHxGOW7UZPxNu k3HYT2CbU3BZNtTZJyUF5+C kNpBW6a rrj4DWAbo6BnDmm1Yw9FnQH eFT0Ay620XSZwK8YogDWcqy ioVa4mwY8ygTFoF0SkrWbwr mktSXRh vFbaDw8OjXGcjvShFwcaGz9 zmBQZd6bpBx95WhDeNSM4Ei MhAbRtXSBwWuOzWn9JoYTib D9pH8lv tFwgKoJ5Hb7MnZXgWRL0SOn dZ8MhgSByPEAUB5m1KHtmD5 NlV7wsTH1zYBxvI7HdJEQxD 6s4EBZl BXgvLQmiuGctqRC5ErYQE2W vH3YonGU4GYEVT6Vlx8Anwl ReYTC7SCrhYDSsALegXtXcR wAZM37p iCreBNSgKOOgWeoNN4Q4I6m pZHRoIDUyMQo+PgplbmRvYm jOSGJwJJFpRtvFEFyOO3Q7s QGaN3Eu sjHCH2L9LqQ1zXOfX2UmiVH KvVBxGc2PGZUvIl6moQGgG3 OnmVBgbK3VfFKpoSYRP5Xdv hB0G8ed ciAzMgovTGFzdENoYXIgMTI mHy7UdhKjMYbbPdYhJ2akZE 5kjVZyW62ivU4iYa5Sp182F KZtV4Nr bQKvxbC5HVKeOpwpZ6ggdXx nETusPlW3ONLvYVUgXZUhXH AwIDAgMzAzIDMwMyAwIDAgM CAwCjAg Rtc2SYQvKAXfEXWiWMRbYGP gMCAwIDAgMCAwIDAgMAowID YaMSM4PloiRAJ8IpKsXqZ4G DAgNDU5 PFFiMKG5OmIeMtJjCWOlDCA 2WzAaXMD5OhE1MLL8VBTkEN E9SZNjTRCiUJK2TsM2CYdkE jQyIDAg MCAwIDAgMCAwIDAgMAowIDA dNJG2KXRaFWA4WQNyGjN9YT ZgCGw6PGQxDOI4OBFxUNA5Z DIyOSAw ZYUdJjU0KEy4WCl9GIRiUQW iIHVkBNAtXEN1UtInXWosVs M8VXXmLUX7HOVqUVO3FrHeH DQ3XT4+ UyByAD0grwyiBXAwHQ5svdu 2YZqhICnrTLWkBh3urLYak8 VngSN2n7ACG8JxjlYIZW5aB S0NPBnk AsEnYQTvaULNiCOibCLVH0Z nLNnsBYDhUx1Co348EoVieD DgHFI8PSDnObK8AMGkTiAeO HHzLJ8Z S65sz3TwmreTyTF0eISaEeC RA0A0AG9SXTd6Ft3KbFPkVo F3JRjlHLWovVonRM8kjWPxP WZbWh8F IDGQIJuyjZCjBtI9Bg0VDXK jO9k0LRA3WThlOIXrOD67YY z7HpwqELAvS3JtdOQtVcN7Z k2DDKKa aF5hNSChSYqwAWJ7Q3yclQf oHUClUTobHLIiE7nxgNhlST M3Cj4+BqOjQH0xfttdBiNrB P6zedh4 EVobSOzhNHMcNw5xeNdaE6U pwVlfMJYmNBZ9QZJ1dZJTF3 Uop0PWm445IY7ITXyxTkRfH UJvbGRJ pPFeeHHPZ1LpzsV1G1wkapT zMgovTGFzdENoYXIgMTIxCi 0EudXuXZvgWbYkZ2ohTD4hm JBhN36p fQ0cHb0Ud028LFZgS8GibOW hstCoUDRdQTNBF7rjUFZszt BbIDIyNiAwIDAgMCAwIDAgM CAwIDAg MCAwIDAgMCAwCjAgMCAwIDA gMCAwIDAgMCAwIDAgMCAwID Q5EvGuAFHzWOswURVrGPL4C DYgMCAw VUEuGEC3QLczWSMpTCNyZKF eIIBuPSMjYJy6RWlqFWXlLO AwIDAgMCAwIDAgMCAwIDAgM CAwIDAg MCAwCjAgMCAwIDUyOCAwIDQ hOnT9LcjqBLjnSGFpHOXnXS Y1CcYpZJFbHzL0ZYQBPSW1D DUyNyAw IKMzFnOwDEI5JBBgEHbkJMW 3ZehiJCCxSGT4UA0+Pgplbm RvYmoKMTMgMCBvYmoKPDwKL 8Q1jIDl R3IrmcEEQOKgaeczzY4qRb3 Mn424LyKcXYQkTYAdOEoWED xoVyezF1EfAgMWZ5ZplgOQU i67JHfc AvK7MB5oRsZfMjQkIDIfYHS lDUmnFRbpb3eiZ7vzWTKnDS L5MUpiY5NwdHoeTlvJB5C6G P6FYBd2 Bg9FlQUevXACreosCDDtOv1 AIKVIBPgpjHPbQgZ8Dr1BPW EuB2z4SIIxJDqbWPYrGD51L DkwNQov XYZfT7DxfYInLwYbVb0WNYZ crV2yWKB2WVziCYO1G8ywxN xwGiYpRHvhRTHeX0yupWcrQ DQxCj4+ XjWtBV3uegfzOZCqIN9itrd 4IJquUWmtGKHjUr0swImlP9 NptOfxHWYwEKB2NUL8oLFXF 7Jwi0WW m463CL3XyywlmB2FEl8CiUX qjPIqACSwUyZKN0wvk2CUiD QeOMFySzghWS4ho8GfnnrfI 1dpbkFu m9wMoiErGQnpYplxZb1soXE yo1FucQZ7w5PkMKEbGKIUMx 1FoZP4gITnIsHfXnmpUVYjI DAgMCAw XVBfFTTyJKJfTUL1EEWjETQ qBrSNEkt1XKE1QQY7UVXlLV M5CLN3NwR2BAVpVYM4MKO9M sU1MARr JMB9TTRiOBEcCktdIQHiIIJ WZLYhAWNjHfH4XYZ2OoV9If TyTnFlIKD7HiB8YQEyDSM8U jIgMjc4 JOHtGRNoBJroCjk2OkTtPCW 2SgfyAKT9TxAeHlI3CYHpPD OcFBHrLFYrUMP7ZqLoQDVrZ CAwCjAg MIAnXHO4YyJ0CYHmHYUuPHI 6JmW5TKAuEeh2DUI4SmZ5PY SzNiHoLADjRTVlIPZvCaW7K zMKNTU2 ZUL3WlN5BPVwCJT5MYZdBrB 2DQZyPbh1RVR5AoW7IWJyYe IyIDUw (more content not included)... [facility] P[facility] Re[facility] Please click on link to see report pdfCD:[id number] PHBpIyu1VSIwNzFG3whqa6Q JjaUCQmRQNpPCLpXXEJJb4O H4tcziexBMVdKyUxCVBy MFJaNGbnunXik9XfsKL5TYp cGo6RwgSjeN1iSAcQR521nM YkywBtC82bjW7wYJCgo92lS i4EhkGa zIzmiiXawYLvLHB0DxRfEpR xMzExNDIxMzktMDUnMDAnKQ o+MrwafwGzWhvRKMMeNX1nl fl3EXqb CQkdTBOtPv7cuXRvc1AaoZZ 3h5WGJ5CnypPCAK9mKH8Hsb nwrR6Kb8vvMMFwzWfrAHLWW 0ZsYWdz OLNdAb4Ok085AzYavCXjFHD 8GVEeGvo7LJPdCWMuQMOiAP 7HA53oc1UgimwQyGQ8jMZtN cqBJ1K2 HK9EFAw6Le6EiBOxKuZ0XVt eBCCzmGciWP6ozJQbFIXbGi 1FXZDFWFyqnHHmRdG2Dp8MG FUwU3l5 XENdCTkuCBRrYT32EVsjABt qWQCoU5HsyJZwPxAnFw3KBU ZxyT3qZGM0OQilQND6U7dtw GggMTMz OmiiTFJtU6hcxWreMNk5Nj8 +BwApNX7xgru5KQRrm5IkVr m1Nw4FbJZyFN5Hr996Hm1Ek SA0kPFz AJ7LvrErOIfiCSqyNlCaNDX wlvUwV2BdlDGeMXWehVXWxF WctULQQJarYhofa5VMbYBkX JFrWt7F TEK8D1lfazMbIbTON4RnH17 ceV8fBZ5HaS2BjxAhLW8mm0 LwajnIS6PeuqARPPOpfdluv G2xYNZu BQEMWz7YnMG9oHYlXmFeAfq gMCAwIDAgMCAwIDAgMCAwID AgMCAwIDAgMzMzCjAgMCAwI DAgMCAw IDAgMCAwIDAgMCAwIDAgMCA wIDAKMCAwIDAgMCAwIDcyMi AwIDAgNjExIDAgNzIyIDAgM CAwIDAg UHEbAuXjMIW8FqzkYIX2XoW zHAL0OJSvIRVaJCYeVXJhGA WnHGYbRIUZZZQvGWSnCGJ3F DYxMSA1 DUSgUwGmWTU1LtBzSHMdMUJ 1UIHqByi0XTVwTNFyKrffOQ u9QlQgLDE1CLBfFcYjCXEnU et2VQI5 NiAzMzMgNjExIDAgMCAwIDU 1Nl0+PgplbmRvYmoKNyAwIG 2cyct2SRafVTvaSQDlEe1af MVfl1Ub sUU8j2SQP7DskeXCRQ3wVL8 ZgzrzgA5CWn4HzULfmsQjWs fwJl0taEGGo3moYm84CaIwQ TMyNSAy QTBfEYRzKRZzFa8KyNMsuL0 vW6vihOcnVwy8Sx4YwAVjLA Z3DApyB1LazBZbBhkJI6i5S AulE8Sf L3zmNJSUK9HjmDizxOgldZX 7PTMXH0yGILywoXUgEYG9Qh 8Ds9FwynHcGCB5Hb2KYBSwJ F68RI9m QZIIQ4hgOXLuvhidKUDtTo6 BHGgLiTL6sXOdIKIoSn7Cnk qTiGL3rWW1ORIAJm7YFS5mi 2JqCjgg IMGdJooRIKfDD4J9tOFzJ5I mqoVUO4P5UfZ4uNTfZ3AicH RFuLWhQv0WRJDeTv7vzUKeR XJpYWxN NWprGqugu5HFqBLjRLDrJh8 WTRJ7M8lkshPqCgYBW9DaC8 0bgW3dWE9FrR0TonMcZQ5cf 2RpbmcK W6ExyrPNGHBxjmymwV5bZUk mNYUVGy7HtVQ4mEBvPoQoAq ggMCAwIDAgMCAwIDAgMCAwI DAgMCAw OGA0WNPbCgIBXxp8PIE3XFD 2NJVoTYC9IBB0RlU6GFZjZA I2IIJ0XfK4WLVqZUA1ODE5H vV5BYGt Mmm6KSQaFIJnUwHeHNKoQLX 0AdY8SoopUvLvHCdaBqV3Yz ciDoJdZOp0JCV6VhPjOaq7A DAgNjY3 LQL0EhR8RoQKPjYhWOx1QLJ 5WgedQTC1HiHdQiQ9ZDEzAH B9ZyTtGnD0EZe6GDCaGVNwY CAwIDAg SOggCUBaWLM7ZPXbOPH2JEE oJRL5XNYiLEZ3CBY9SLC9EW CiJNL8LHViMlXxLDSmZAUiN jIgODMz FjZ9BoE7YTGpAIQ9HDIkZlO sOCGnGFEqEeoiZON9JLItMO V5ZfXxTHQ2WCSbTi0CUJ9ak 2JqCjkg ZTPxFlyDWYbLP9Z6gDGgB1I carCGKOMemwdxiM3bIy0Jg6 97SoStAIHbMCGiCHbaLc6gX Y5BHm6I cXZwtiClFflhNp1cxAPBu5o eOy69WkdfQGL1ZtBqMVOyWL DyTEIvGa2GvPZeqM0vG0brf GggMjc4 Eu5AzUWkTHS7ZWehO9TobXF zSlfHJ7l6JJcoJ0RhX9etZZ KRZ2DzrIhrmKprqJR6GYOEQ 1hIZWln dQVeFWI9Ku2Kc5XuphRnFHA 7Nr0VJZFpRH95SK4rZOTTJ1 xwKGFzdaitDHSvRs5BKCgCo FU6tIZg UVRcQz7FbhyZhAR6xEB0Tec TRb1OQS8dy0OxHpJnTHDmx4 XcFmu7Xz5OzUCvTJ5Fz081D l5AgNS6 oHPkDJ9MqwYnQEpmIWmwUsJ nSUAxhvSlW3IunGDrJZSqoE BZPTtvIqwok4JAfZGgRSXfD z6LAQX7 Q4myacPpTyCWQ2EzO49juG8 zJF6KuZ9DtgNrBG9nb4Nssi yMR1UzkgFDPMCvrkndcT6pA DkgMCBS Pd2NoDK2oSZqYsTaFgefKCF hFHZ3ZlXzICEvCYXhXHTsLd AzMzMgMCAwIDAgMAoyNzggM CAwIDAg MCAwIDAgMCAwIDAgMCAwIDM sYnBqLRYqVNmjMXZbOGD0Xu AsEqYmVLjoWcF5XbHuIeF5N DYxMSA3 LscjOmSkMMZ7PBZxBVUkZgB fKQbzCqb4AaBcAoi4EFY6Uv M3DssqAaIsBQV3NzC9BBPfD CAwIDk0 NCAwIDAgNjExIDAgMCAwCjA fHZZvTUH2XpL3GXJbIXA9LU ZeZMR5YZSaArPoVFXpNZM3L TEgMjc4 QNVrCBG7ZED6FSH5YXyVDgQ xHZLhHSK4HHAnFEKsQRybHH T2JUUlNcG3PSIqIXQ1YCRtU EF2HCO9 Nl0+PgplbmRvYmoKMTEgMCB bIsrAFBvKD4gnpzd6fADqZC YhEChqGEEoC3DeVIE1YGHFC 0ZpbHRl liIaM0KaQXEdUXByg6EqLBq +KbkhqUHlTQ2XsYbpNH5eJO UVP/e+y51mTOZEhst42LeVG CGSgIQP v0IyT4DiC1KU6QQLjhvFrdP gCEJpKFBwE+xSoh0/gKCigE NdWjLKbBpLOV1uWUc9w5GqK +PoWOKM IgVrQ3M+2khYOfdY8N/9o9O +k9/73XvOeeeec+48c19BXA CuIvWYnGUvStZ2pfWwYGPTj HCu9S6M tso3bbPQkIYAMRq7HZZ8+uO jvqhtywgMvRH16MUSPm4rzT t3u5KYZJ5QIJM7D0aSNqel8 bBizbon SfJcGStYVi9rQ6mMLWIwnwe PFN+G/coZVulyaPbu8rUySM +bozYmGclYP8tcBu1FUrSko +5cily+ IBLm03/bceFfWiZCaliAb+a W2NxLrxE+NrrCumY0agZapn /eWWGr9rX17K29oGkZ59WYb Ivpr+wg /cbEnUSe8LxonDStOEiMbVp n6wxxwR+oqCt1Kp/kZ/gZyz iZeypRH9y3d0LKqFyfR23Em 9hp+Gyg 1xYciNcbGAczMi27cL3SqLU PWC+sdNgQ3uZEwja8Jk1t3L j3J6kJWzjCwHJTWs6n7ATR4 vexh2TU IwTN8dPIbJEjgI3XtW7f9Ti MixOi2E6n4DxTlNqncruG2l SlEVEYceyCBFRoRvsuzcPI1 fTIcFRb zhS7t2XpDIZ6tyBkv2UkG6S FZ/DRiHLGxzBWAae1bzUiaz 7DCA1J4crtAnph6dyOZV3jv SofxqhE gsJ1HA5wgOcEKxbhl1zhztY +OkRROkm/XUjqg6CZovQ81h FmXVPYVLYQEoSsYpvYVsxHy 6Grks8O RgsG7Ret+5HTDyD6MQZ1C0p t/Bl+jL/Lf80/4T38S/61QI IDYJnKM6hRI8Bz4klcEdsB8 1B56ior xxKTDGumEuVk+MR0MjBiDOR stdTiu8DXFu4iRTGEJizbTh lPxEz9PgbIDouxvVeMdifvh 1KOj7Ra kIHBSkyZyopZCVsACbJFLMR LbORd0XUPD2QI4OF5QXK8OZ mQXWR/SQ0vA1toqiv9gFkX6 1fB5/GF fDl/ij/Nn+DdCBt79dB1I68 JNfbwPtQYIyQKKcJowSeUQO NPl0V6qenbFtbcAFR8mQ0c6 l4vskkE dIR3zcW9jT+wklwSpHRpsjQ N6iN3IE4JZnR69HK7Jp3ft6 4UbvfvP4t2i/vkTvkj+ZqSo qQqYyET uElWXUEMIxduIdmEc6Kxjsx AUG7Yifn9UXtYClhdpq9hb6 /VU4GjuRW0kF6phSKIY3971 0qw7ewN aqqL1TT5aRuZ5dx3YRXVVth ED6AA0LrBBwMBQMlMBfly4H dPLE9uJ3I24PABVbfPL5U8U N2eT/6M xEkNp8USz3TnWTB64AWNINP fPrxVv1AojDxJ4ilaj87Jpp ab6DRXCiqoaZ8i6SDfTHK91 87yMaxF eo69NlTYNggHdcdf7He8xN3 5dWMpqzhQVEe7uFIC6rLJDX eZH9xXpgZcW6/naGkuaItF7 SpXg9l7 aYaNMr5i1vs14ijfn23qArB sTLcqFtg4QbSDQPDhnGdECs e0VZYz2rufq1HM7OrPm1P6a PHT77Ud QAdwBDgIvAzsA/JDj5WLSZs LWsb7Fv1qa+7a7gLOE8c9lS VCyzngG2DFf7k917N6kgRiC Oj6ZaW2 ea7GXkH1pQrOq5JL4J9dFKR XhXo6Ty8E7hX5cjkWeoLZnY gXW+st (more content not included)... Normal [facility] Lab Reportson 04-08-2022 Lab Reports [id number] D:127 Normal [facility] Operative Reporton Operative Report [id number]#1.00C D:127 Normal [facility] Blood Urea Nitrogenon 2022 Urea nitrogen [Mass/Vol] 30 mg/dL High 12-06 [facility] Comment on above: Performed By: #### C REAT, BUN #### [address] Creatinineon 04-07-2022 Creatinine [Mass/Vol] 1.21 mg/dL High 0.44-1.03 [facility] Comment on above: Performed By: #### C REAT, BUN #### [address] Creatinine Clr Calc Pharmacy 46.76 [facility] Comment on above: Result Comment: PERF ORMED BY: [place] [address] PATHOLOGIST LEAKAGE TESTER AIRAM ROMEO M.D. Performed By: #### C REAT, BUN #### [address] Estimated GFR ( Laura 53 [facility] Comment on above: Result Comment: GFR estimated reference range: According to KDOQI guidelines, <60 ml/min/1.73m2 is sufficient to diagnose a patient with chronic kidney disease. Performed By: #### C REAT, BUN #### [place] [address] [place] Estimated GFR (Non- Am 44 [facility] Comment on above: Performed By: #### C REAT, BUN #### [address] Creatinine and Glomerular fi ltration rate.predicted panel (S/P/Bld)Ordered By: Miguel Membreno on 04-07-2022 Creatinine [Mass/Vol] 1.21 mg/dL 0.44-1.03 [facility] Estimated glomerular filtrat ion rate (GFR) non- AmericanOrdered By: Miguel Membreno on 04-07-2022 GFR/1.73 sq M.predicted among non-blacks MDRD (S/P/Bld) [Vol rate/Area] 44 mL/Min [facility] No Panel InformationOrdered By: Miguel Membreno on 04-07-2022 Estimated GFR () 53 mL/Min [facility] Comment on above: GFR estimated refere nce range: According to KDOQI guidelines, <60 ml/min/1.73m2 is sufficient to diagnose a patient with chronic kidney disease. Pharmacy Creatinine Clearance (Chem 46.76 [facility] Serum or plasma urea nitroge n measurement (mass/volume)Ordered By: Miguel Membreno on 04-07-2022 Urea nitrogen [Mass/Vol] 30 mg/dL 12-06 [facility] Coding Summary.on 04-03-2022 Coding Summary. CD:[id number] Gh0 bWw+PGhlYWQ+TJ0ETHTzE72 ayHThoO9HS5xSWP8MNAEFPY GVMI1AXB7vuWI6POykD4Psh iAv GhsrlGTyBN39IVg9OWO7lCi wOZxdbW7ekNCnI0e5MuSeZU 24hP10GLknERVyNnH8YkSyg jsgbWFy U3kmFuOyoEOhGye+PHRhYmx lIHdpZHRoPScxMDAlJyBzdH zjQF2vLm2uVZTjUHCkrLfhp HNlOiBj z3ogDSAhIOeyQZ3xgLyxU3F huEY9GAEsq9v7It73rJY+PH KtMHI3zEopRDfdd607KoQxp 0fuUEQ8 hZEcSEwbLPX7T25oa5P4OKE mZQCgKDE7fVX4dP4ckSmiyu mvZ7PcsKXhAbT2YFJ5sKLcg A2oiQxi twoteA1dLgc+D40VZS1CPKL IXO2CGzo7Z4OwWxsmyAI+PC 23RJYrUT26wJNnmBYyb0jwp Wv4QvGk HMMiHZZ2oYexSJhui3PpSKD kG98zoFJxl1N3XJGchHdovX QeFrLjwBE6dU6vUYcghhkbn 2hvdzsn Xvycr6hcrq44uJ14H80nHQt rPXUbNMK4YOVaNTAezUoysg 9moT3iFd5+YFkij5sai2mfw Nq7DwQy RDPntdMyaSdfKMP9w4XrIp7 5D2VvoEqhl5MxFld4ie69eY Mvs8V5lDQ0ZEfhRNEyjR6zP WxlZnQ6 WLNjUjUjpB39pAYnSCdlEs6 tbAtkwBjoHS6eZZRxgphzLC NadK4wVKMrcKNqvWrqMD9wN TBpbjtm g929ZuToIAC8JFUbnGUuU4J pdJ4fBfNiTMZcWBVqV1HppD LmGOzdV715XLiuLsI6GQBvm hCtI9Ts LHManUmaJmP7g5M2Sr2Ps6D clxzpCVU6WZpxNCBaEhM7Vv SjRhE3Z9MnTrc4NVMfkRxsI U4cW5Db KMJmfbmdcrenvPY8DLXfACG iuS40fHFfKXiqGj5bo1K3d3 52WNMsQOLrqA01Vm6zwAnjX TBwdCBU lG0cieuor7ekvqucZoPcNQG wTPt8SQt2GTWhxLksKtZxPD C8NhG4YZN1yALlyQ5inXymm aeqrM2z Oyc+I74ciY6oRVG3EZM1rrv bZJTshwDxRX02RY10X5PkVm wvdGFibGU+PGRpdiBzdHlsZ W8kTbLx a4bqn7XuPZzjA3OdMXEnKRu pXjp1KTZxKAF9dVN1fN5sIK OpWQnws5B7gZU4I6EkvpUqs p0vt2ch BXWeBMifP38zmUKow0S1JYB deXV4OUPxqRaxRdGtcX71Bp c+LFEglRcrc9NlCzhvz5gaf 5ihuRf8 GsUyITIbpfIexJqhHDL8w6X fCm91R60mWJqeAXBnOFTaQF OjOVBneJgtep6zhL3eLq7+P GNvbCB3 uTB2tK4xDWLxWpE6CWnzF98 8PkJmsPSjKvtlj9ecj3ipoV p9RaSxEHEidjVeuRxuMYM6e 4GdIu28 E93mRGmhMPPvDMQmBAPtTYQ htZqifq1xvN6nSc7+PC9jb2 fdtn81mA37dOB+PWTlYDU3u WxlPSdw WNWnaC7yPOfeRtJ5XFNiDdD frF02tOYzEVftPz6hlKbowP ixJP4uSJWjvqtib130UsYth 2xkIDEw fVTsTZlbGKU3S04ut7R2HSE yXBYdCJK3bKT8cX1pbVlsob ogbGVmdDsgdmVydGljYWwtY LbyQ606 IHRvcDsnPlBhdGllbnQgTmF kTWv0U8VyMnw5QICiaUudAQ 5ftIYzRSeyTp7niGuzrBvfG V0tDAKh uqwko637EyDbq4wiLOYwyEE sAZxsTWL3H35hz5W6IWZpQZ NdEMC3dDM9pI9uaKhoydjmd GVmdDsg gwEfiLsnPLprKKsoD094OCK ugUcfQwEzcrPyDKFlePJ1JQ 20OI75mQKtk6F8mXG0L7MbW GRpbmct dztncMI6QTJgYEGawJ21Jr4 sjPxfQn9iQLVaXRN7PUZvtQ WlP1XsyA7tZaTlCNHuXYXcM 3RleHQt SIeoA160PInxAwT2JRLnliO gZ5FwIBDnzUakTxK6q0E2Oi 6VU9N5EF50TX35kFKwc0P4z CG2M9Lc KLZglfefykacvBJ7OUQwEVZ qrF89Ut2jiOflBx6bCINdOG R3UJQznRUkV1ZywB0dAvMcN DAwMDAw P1BtfJDuUQozH037BUulJuU 1EUOdelUrG0JuHQKiiRxcWp A0f3Z4Ki2QWZm8IC04DL47t WInr0J7 cXH8R4JbHQGkdrtyoasekBT 9WPKrFQOpaF15Sp9moLciZy 9hZFMtGYU1SHNpuJIuC4Iom C8mQhLe SKCcWPJtH2GjkBUcCOgmW26 1DPeyBuV5QQTajeRgW4KeHI SwmPodXzQ2z0A5Oy5CPVFrH I81XHT9 rXA2OR05UX45V3FrTdfpyZO ibGU+PHRhYmxlIHdpZHRoPS weUBLjAiJuyOlwYC8jDo0xW GVyLWNv pOcurRSbDnIzr0knODEdYBy tUX1kcQnlF5MarMJ8PZPuc2 a5Hx18V94tH1UphNS+PGNvb QB9zRV8 jB6yXfNaKbD4TKujW003YfU qbVNeOrrub7wfd4tuxGi1Mz W2BNOqugNylJpyANC5v9SeS h79S20f IHdpZHRoPSIxNSUiIHZhbGl nup2geD5fZr5+CFCibCG6hA F4oS8cJaIsPsC5DFdlP273W nRvcCIv Svvxh8kgt5dydUi9IqSgLYD ccoPxfNnkNOG9d9JtHw24J6 BiuBwjt2VlYli8kc79yHOaa 0K1aFH0 D3LtDRCiijtvnQEduMjkYH3 uMFZrpqdyMQWmjZ8pJSTlT0 q6DsUmEoY4DWrwU9SupsU0K DEwcHQg YSxlYRI6Y69ah6C2VKWwUYA jXSM6iPQ9jN1snJyhgeowxG VmdDsgdmVydGljYWwtYWxpZ 246IHRv vKcaGNExeK9cFTQgjMHidWy fRR2jUKUfhzbiNfGSFB3FN8 hGSlpvU3FIQT1oGAvcxTI+P HRkIHN0 tGfvJQvsOZYxyZ3dUORhU7u 9XzWbInW7GIlsZ5IlTEHedb kqVz94dA0sUaBfIkO8YHpaT 4VxslG2 HYHykAWcVSsqZOT2J28kd3M 6NLOrOMCzXRW2jOR9yR5htU lnbjogbGVmdDsgdmVydGljY WwtYWxp S069OVOalSmoPnZ9TfIrZtQ 7AGM3V2BbHnx3RWFmkAjbTH 6djDMuABdzTi9jrXrxdVfxF U0zMNQm ngtlFZWniC5dTPCraTJpjVj uOU9rKCJacfifp964KeMuHN C9TQHavJNdK8ZhoP3xRrBtO DAwMDAw A6FwyWYiPAqaD940VMhwNhO 8NSLnzxGmU4PrFBXbjXmaDv R8x6K2Ez06GjIJURPbajflm GQ+PHRk FFI1rDxiZQpnBVAxpF7qQUA cI6u2PxCiVvY1KCkcO4OpTP DakmciVa19qW1rJjOlFlZ4F RleA2Gl acH2QMSenGWkEDaqMJR3Y42 al0U9XXOeTRPhCEF1eBY2fI 1hbGlnbjogbGVmdDsgdmVyd GljYWwt ZQohL133EJXyfKroAgBdrUD sZTwvdGQ+MYBxRCC4uDlfHD iqUVXisX9qETNoB5q2DiYzL fT6HMts Q9VsITYeywmgAg28mJ9tCeN eLjO5JJvwS6VuaiT5TYDqyQ GmEGcbUSP3D04dy8P0ALJbD DAwMDA7 bJJ7oJ5cdGuqklaeyPSrwId fqcGczLmwCYbkSKdkK144SW QiwSbzGo85kABdnMajlkA9O 3RkPjwv dHI+KM24BKLnGH57cDEhcKZ pt4ocwLj8QiRhUDHeIOB4hS vaVVaaq6PkTPQzC32dnYHcp 9L5IACu kXyurSMuZdDtgOH9fC9qYOp cmjuun2dmidltUbgyu2temw 65bJ03F90tHEreTGMwGFBfR CUiIHZh wJbtwk9dqU2yYx3+PGNvbCB 7jTP6rX7yNgNlNsL9FEqoU6 11PsHkiRLnMqrop8kdf2qdh Pm2BwMc QVHlxpQizNibCTD8l0KqBe0 0E58pEDsnVHLnRDJxTFNlFK CrdOfsxy0daC1nIa0+PC9jb 9svtf93 dL44zLN+NJYdQJH6zExpJXq tBFFkcH5nFKdeAbH4YJFjEi BixF46eLTlVZmfMn9eaUqfc QomCB3b KNJjeknfg906MwVez1ddOUC mdQGeUMyaOTK7T06ry5I9OY MdVADrMFE4iFI2hU8qrUaxk jogbGVm fPwmksGiaKwxKXgpYOonP79 3SZUbcChmOsTnuNEkV7xukt LQXI6xOzeqkBA+HYKvHDZ4w WxlPSdw IVBkhY6tLGOkD0v0XfExMgD 1SKiqP0MsilM9QNPilWCcPW XwdZJGdA6satguj8ocympiP zAwMDAw TNc7SDl9WBAnbSvvNxGpIBK 3RwX9PCB4kHYwgI4hiWwrvp qhyL1oHwi+RklOOjwvdGQ+P HRkIHN0 cXxbJKnlFHBsvQ8lSIBnP1y 7FgJdMeX3ZStnN6MgkuP9OB FrqJJmOWMsxSTRpM6xesdej 2xvcjog PmNhGJLnLKh5IVx9SPGqyYp yZxDaNUM8AjP8PCO8oAIlhD 9fdPqzpbpzaB8sIcq+TVJOO jwvdGQ+ WSBuYMY8cEkjSNmsETTiaO7 vAXLpM2s8LgKeDtH3WGfkR7 AoxtO3ZHStrOFaRSFscWUPd K0gdeqn s8lxkuklFzGzTSOwABd9FHx 2QEQhbEevIzAtCVJ4FeY6ZA G2qNDlwZ9ofTezaqtnlB8bH yc+UGF5 QBA2DI44OX57U1CeNnyzcPS ibGU+PHRhYmxlIHdpZHRoPS zlAXWqNuHgiVplJM6lIs1dO GVyLWNv bGxh (more content not included)... Normal [facility] Consultation Noteon 04-03-19 23 Consultation Note [id number] D:127 Normal [facility] Lab Miscellaneous-LCon 04-03 Lab Miscellaneous COMMENT Invalid Interpretation Code [facility] Comment on above: Result Comment: Test Ordered: [id number] Anti-PR3 Antibodies Anti-PR3 Antibodies <0.2 units BN Reference Range: 0.0-0.9 Performed at: [address] [id number] PhD Armin Zaldivar Performed By: #### 1 [id number] #### [facility] Laboratory [address] [place] [address] Result Comment: Test Ordered: [id number] Anti-MPO Antibodies Anti-MPO Antibodies <0.2 units BN Reference Range: 0.0-0.9 Performed at: [address] [id number] PhD Armin Zaldivar Performed By: #### 1 [id number] #### [facility] Laboratory [address] [place] [address] C3on 04-02-2022 Complement C3 [Mass/Vol] 169 mg/dL High 82-167 [facility] Comment on above: Result Comment: Perf ormed at: [address] [id number] PhD Armin Zaldivar Performed By: #### 1 [id number], 63584588, [id number], 89456149, 1773967, 7181707, 9317506, 29420895 ####[facility] [address] [place] [address] C4on 04-02-2022 Complement C4 [Mass/Vol] 29 mg/dL Invalid Interpretation Code 12-38 [facility] Comment on above: Result Comment: Perf ormed at: [address] [id number] PhD Armin Zaldivar Performed By: #### 1 [id number], 32612326, [id number], 30172583, 4876889, 2372666, 9143951, 73941350 ####[facility] [address] [place] [address] Free K+L Lt Chains,Qn,Son Immunoglobulin light chains.kappa.free (S) [Mass/Vol] 47.1 mg/L High 3.3-19.4 [facility] Comment on above: Performed By: #### 1 [id number], 53473284, 115323097, 10914997, 0829155, 3115212, 6005507, 12037212 ####[facility] [address] [place] [address] Immunoglobulin light chains.kappa.free/I mmunoglobulin light chains.lambda.free (S) [Mass ratio] 1.59 Invalid Interpretation Code 0.26-1.65 [facility] Comment on above: Result Comment: Perf ormed at: [address] [id number] PhD Armin Zaldivar Performed By: #### 1 8570190, 54769471, 058106243, 80221341, 2839132, 3529172, 5487782, 92783741 ####[facility] [address] [place] [address] Immunoglobulin light chains.lambda.free [Mass/Vol] 29.7 mg/L High 5.7-26.3 [facility] Comment on above: Performed By: #### 1 3718272, 34768940, 618681312, 87954078, 6789857, 7387563, 5414402, 03427540 ####[facility] [address] [place] [address] Immunofixation, Urineon 03-16 Interpretation Immunofixation (U) [Interp] Comment Invalid Interpretation Code [facility] Comment on above: Result Comment: No m onoclonality detected. Performed at: [address] [id number] PhD Armin Zaldivar Performed By: #### 2 [id number] #### [facility] Laboratory [address] [place] [address] [facility] (Inserted Image. [place] ble to display) April 02, [address] [place] [address] EVON CORCORAN 1950 Dear Evon, This is a reminder that you are due for an appointment with [facility]. Please contact our office at [phone] to schedule an appointment at your earliest convenience. Thank you, [facility] Normal [facility] Reminderson 04-02-2022 Reminders - From: Doretha Henry To: RANDI - Reminders/Recalls; Sent: 04/02/2022 09:12:50 EST Show up: 04/02/2022 09:13:00 EST Subject: Ambulatory Reminder Reminder/Recall 5 year colon recall cj 04/29/2022 first recall letter Normal [facility] Immunofixation Serumon 04-01 IgA [Mass/Vol] 474 mg/dL High 64-422 [facility] Comment on above: Performed By: #### 1 5153545, 38593519, 192731186, 61328285, 3586222, 5034840, 0227121, 42717652 ####[facility] [address] [place] [address] IgG [Mass/Vol] 999 mg/dL Invalid Interpretation Code 299-9665 [facility] Comment on above: Performed By: #### 1 1767383, 70230174, 425141291, 63570355, 1143371, 6441556, 9588693, 20273182 ####[facility] [address] [place] [address] IgM [Mass/Vol] 47 mg/dL Invalid Interpretation Code [facility] Comment on above: Result Comment: Perf ormed at: [facility] [address] [id number] PhD Amrin Zaldivar Performed By: #### 1 0068599, 01514872, 499151452, 91770105, 9164390, 8061821, 4310395, 83895951 ####[facility] [address] [place] [address] Protein Fractions [Interp] Comment Invalid Interpretation Code [facility] Comment on above: Result Comment: No m onoclonality detected. Performed By: #### 1 5165672, 36080979, 903903181, 10654286, 1629641, 0264546, 0373835, 78031157 ####[facility] [address] [place] [address] PTH Int[place]on 04-01-2022 Parathyrin.intact [Mass/Vol] 38 pg/mL Invalid Interpretation Code [facility] Comment on above: Result Comment: Perf ormed at: [facility] [address] [id number] PhD Armin Zaldivar Performed By: #### 1 [id number], [id number] #### [facility] Laboratory [address] [place] [address] CHEMISTRYOrdered By: Genaro Rivera on 03-31-2022 Albumin Elph (U) [Mass fraction] mg/dL Invalid Interpretation Code [facility] Remisol Creatinine (U) [Mass/Vol] 95.7 mg/dL Invalid Interpretation Code FT Remisol U Prot/Creat Ratio [facility] Invalid Interpretation Code 0.00 - 200.00 [facility] Remisol CHEMISTRYOrdered By: SYSTEM SYSTEM on 03-31-2022 [...] rate/Area] 45 mL/min/1.73 m2 Low >=59mL/min/1.73 m2 [facility] Chem S GFR/1.73 sq M.predicted among non-blacks MDRD (S/P/Bld) [Vol rate/Area] 37 mL/min/1.73 m2 Low >=59mL/min/1.73 m2 [facility] Chem S Glucose [Mass/Vol] 203 mg/dL High 55 - 199 mg/dL [facility] Remisol Magnesium [Mass/Vol] 2.1 mg/dL Normal 1.3 - 2.4 mg/dL [facility] Remisol Phosphate [Mass/Vol] 4.7 mg/dL High 1.9 - 4.6 mg/dL [facility] Remisol Potassium [Moles/Vol] 3.8 mmol/L Normal 3.5 - 5.3 mmol/L [facility] Remisol Sodium [Moles/Vol] 140 mmol/L Normal 135 - 145 mmol/L [facility] Remisol Urea nitrogen [Mass/Vol] 29 mg/dL High 5 - 21 mg/dL [facility] Remisol Urea nitrogen/Creatinine [Mass ratio] 21 mg/mg High 10 - 20 [facility] Remisol Consent for Treatmenton 03-16 Consent for Treatment [id number]#1.00C D:127 Normal [facility] HEMATOLOGYOrdered By: Chai Reid on 03-31-2022 Hematocrit (Bld) [Volume fraction] 39.5 % Normal 34.0 - 46.0 % [facility] HemeAutoSS Hemoglobin (Bld) [Mass/Vol] 12.6 g/dL Normal 12.0 - 16.0 gm/dL [facility] HemeAutoSS Hct & Hgbon 03-31-2022 Hematocrit (Bld) [Volume fraction] 39.5 % Normal 34.0-46.0 [facility] Comment on above: Performed By: #### 1 1274199, 10216779, 323924922, 37889366, 7589785, 8795416, 3232562, 16036411 ####[facility] [address] [place] [address] Hemoglobin (Bld) [Mass/Vol] 12.6 g/dL Normal 12.0-16.0 [facility] Comment on above: Performed By: #### 1 7095866, 77612039, 035501173, 84872910, 7127054, 7083573, 1523340, 84275940 ####[facility] [address] [place] [address] Lab Miscellaneous-LCon 03-31 Test Code 163849 Invalid Interpretation Code [facility] Comment on above: Performed By: #### 1 [id number] #### [facility] Laboratory [address] [place] [address] Test Code 658788 Invalid Interpretation Code [facility] Comment on above: Performed By: #### 1 [id number], [id number] #### [facility] Laboratory [address] [place] [address] Test Name PR3 AB Invalid Interpretation Code [facility] Comment on above: Performed By: #### 1 [id number] #### [facility] Laboratory [address] [place] [address] Test Name MPO AB Invalid Interpretation Code [facility] Comment on above: Performed By: #### 1 [id number], [id number] #### [facility] Laboratory [address] [place] [address] Magnesiumon 03-31-2022 Magnesium [Mass/Vol] 2.1 mg/dL Normal 1.3-2.4 [facility] Comment on above: Performed By: #### 1 5584166, 16377890, 544073315, 91863911, 4405733, 3432089, 2310481, 86912500 ####[facility] [address] [place] [address] Physician Orderon 03-31-2022 Physician Order [id number]#1.00C D:127 Normal [facility] Reference Laboratory Testing Ordered By: Angelica Casas on 03-31-2022 Test Code 103031 Invalid Interpretation Code [facility] SendOutsSS Test Code 470476 Invalid Interpretation Code [facility] SendOutsSS Test Name MPO AB Invalid Interpretation Code [facility] SendOutsSS Test Name PR3 AB Invalid Interpretation Code [facility] SendOutsSS Renal Panelon 03-31-2022 Albumin [Mass/Vol] 3.7 g/dL Normal 3.3-5.0 [facility] Comment on above: Performed By: #### 1 7010599, 65533209, 306791898, 75097826, 3422731, 2312877, 9871743, 08056049 ####[facility] [address] [place] [address] Anion gap [Moles/Vol] 16 mmol/L Normal 6-16 [facility] Comment on above: Performed By: #### 1 5412507, 40185562, 946408598, 48599445, 5763840, 4483900, 1758825, 52372038 ####[facility] [address] [place] [address] Calcium [Mass/Vol] 8.8 mg/dL Low 8.9-11.1 [facility] Comment on above: Performed By: #### 1 1082033, 10629823, 943420849, 16237810, 0469062, 3315108, 8020748, 97407249 ####[facility] [address] [place] [address] Chloride [Moles/Vol] 103 mmol/L Normal 101-111 [facility] Comment on above: Performed By: #### 1 5836065, 81285548, 850847230, 64595273, 6628768, 9777065, 6802948, 73811442 ####[facility] [address] [place] [address] CO2 [Moles/Vol] 25 mmol/L Normal 21-31 [facility] Comment on above: Performed By: #### 1 1256497, 37346612, 551187539, 88218358, 9574911, 7172266, 2441818, 02881171 ####[facility] [address] [place] [address] Creatinine [Mass/Vol] 1.4 mg/dL High 0.5-1.3 [facility] Comment on above: Performed By: #### 1 7290168, 59174709, 030352531, 02519371, 6058439, 3840946, 0527141, 50937747 ####[facility] [address] [place] [address] Glucose [Mass/Vol] 203 mg/dL High 55-199 [facility] Comment on above: Result Comment: If t his glucose result represents a fasting glucose, interpretation should refer to the following reference range: 55-99 mg/dL Performed By: #### 1 7985958, 59655334, 359778678, 60721573, 1453084, 6707235, 3575797, 30705412 ####[facility] [address] [place] [address] Phosphate [Mass/Vol] 4.7 mg/dL High 1.9-4.6 [facility] Comment on above: Performed By: #### 1 5155075, 65685675, 038573158, 20998144, 0869240, 0845050, 7908414, 85452565 ####[facility] [address] [place] [address] Potassium [Moles/Vol] 3.8 mmol/L Normal 3.5-5.3 [facility] Comment on above: Performed By: #### 1 5526388, 71906288, 226406364, 52196923, 8215569, 4902468, 6390222, 82121409 ####[facility] [address] [place] [address] Sodium [Moles/Vol] 140 mmol/L Normal 135-145 [facility] Comment on above: Performed By: #### 1 6090417, 42045002, 291060005, 72937834, 8099455, 1083457, [id number], [id number] ####[facility] [address] [place] [address] Urea nitrogen [Mass/Vol] 29 mg/dL High 5-21 [facility] Comment on above: Performed By: #### 1 [id number], [id number], [id number], [id number], [id number], [id number], [id number], [id number] ####[facility] [address] [place] [address] Urea nitrogen/Creatinine [Mass ratio] 21 No Units High 10-20 [facility] Comment on above: Performed By: #### 1 [id number], [id number], [id number], [id number], 0640507, 0224401, [id number], [id number] ####[facility] [address] [place] [address] U Protein/Creat Ratioon 03-16 Albumin Elph (U) [Mass fraction] <6.0 Invalid Interpretation Code [facility] Comment on above: Result Comment: The reference range and other method performance specifications have not been established for this test; results should be integrated into the clinical context for interpretation. Performed By: #### 2 [id number] #### [facility] [address] [place] [address] Creatinine (U) [Mass/Vol] 95.7 mg/dL Invalid Interpretation Code [facility] Comment on above: Result Comment: The reference range and other method performance specifications have not been established for this test; results should be integrated into the clinical context for interpretation. Performed By: #### 2 [id number] #### [facility] [address] [place] [address] U Prot/Creat Ratio [facility] Invalid Interpretation Code .00-200.00 [facility] Comment on above: Performed By: #### 2 [id number] #### [facility] [address] [place] [address] URINALYSISOrdered By: Elizabeth Rosas on 03-31-2022 Bilirubin [...] AM) Normal Negative [facility] UA Auto SS Gooding.plasma/Lith ium.RBC (Bld) [Mass ratio] 0-3 /HPF Normal [...] FT UA Auto SS Urobilinogen Qn (U) 0.3378070 {Donell'U}/dL Normal 0.0 - 1.0 EU/dL [facility] UA Auto SS WBC Auto Ql (U) Negative (03/31/22 7:43 AM) Normal Negative [facility] UA Auto SS WBC LM.HPF (Urine sed) [#/Area] 0-5 /HPF Normal 0-5/HPF [facility] UA Auto SS US ankle/arm indiceson 03-31 US ankle/arm indices [facility] [address] Ultrasound Report Signed Patient: Evon Corcoran MR#: [id number] : 1950 Acct:[id number] Age/Sex: 71 / F ADM Date: 03/31/22 Loc: [facility] Room: Type: [facility] Attending Dr: Miguel Membreno MD Ordering Provider: [...] Miguel Membreno M.D.03/31/2022 3:38 PM [facility] Tech: Christy Chiqui Transcribed By: RICH 03/31/221537 Dictated By: Miguel Membreno MD 03/31/221536 Signed By: 03/31/221537 [facility] Urinalysison 03-31-2022 Bilirubin Ql (U) Negative Normal Negative [facility] Comment on above: Performed By: #### 2 [id number] #### [facility] [address] [place] [address] Clarity (U) CLEAR Normal Clear [facility] Comment on above: Performed By: #### 2 [id number] #### [facility] [address] [place] [address] Color (U) YELLOW Normal Yellow [facility] Comment on above: Performed By: #### 2 [id number] #### [facility] [address] [place] [address] Epithelial cells.squamous LM.HPF (Urine sed) [#/Area] 0-2 Normal 0-2 [facility] Comment on above: Performed By: #### 2 [id number] #### [facility] [address] [place] [address] Glucose Test strip (U) [Mass/Vol] 3+ Abnormal Negative [facility] Comment on above: Performed By: #### 2 [id number] #### [facility] [address] [place] [address] Hemoglobin Ql (U) Negative Normal Negative [facility] Comment on above: Performed By: #### 2 [id number] #### [facility] [address] [place] [address] Ketones (U) [Mass/Vol] Negative Normal Negative [facility] Comment on above: Performed By: #### 2 [id number] #### [facility] [address] [place] [address] Gooding.plasma/Lith ium.RBC (Bld) [Mass ratio] 0-3 Normal 0-3 [facility] Comment on above: Performed By: #### 2 [id number] #### [facility] Laboratory [address] [place] [address] Nitrite Ql (U) Negative Normal Negative [facility] Comment on above: Performed By: #### 2 [id number] #### [facility] Laboratory [address] [place] [address] pH (U) 5.5 [pH] Invalid Interpretation Code 5.0-9.0 [facility] Comment on above: Performed By: #### 2 [id number] #### [facility] Laboratory [address] [place] [address] Protein (U) [Mass/Vol] Negative Normal Negative [facility] Comment on above: Performed By: #### 2 [id number] #### [facility] [address] [place] [address] Specific gravity (U) [Rel density] 1.015 Invalid Interpretation Code 1.005-1.030 [facility] Comment on above: Performed By: #### 2 [id number] #### [facility] Laboratory [address] [place] [address] Type of Urine collection method Clean Catch Normal [facility] Comment on above: Performed By: #### 2 [id number] #### [facility] [address] [place] [address] Urobilinogen Qn (U) 0.2 {Donell'U}/dL Normal 0.0-1.0 [facility] Comment on above: Performed By: #### 2 [id number] #### [facility] [address] [place] [address] WBC Auto Ql (U) Negative Normal Negative [facility] Comment on above: Performed By: #### 2 [id number] #### [facility] [address] [place] [address] WBC LM.HPF (Urine sed) [#/Area] 0-5 Normal 0-5 [facility] Comment on above: Performed By: #### 2 [id number] #### [facility] Laboratory [address] [place] [address] eGFRon 03-31-2022 GFR/1.73 sq M.predicted among blacks MDRD (S/P/Bld) [Vol rate/Area] 45 mL/min/1.73 m2 Low >=59 [facility] Comment on above: Order Comment: Order added by Discern Expert. Result Comment: eGFR is race adjusted. AA=. Performed By: #### 1 [id number] ####[facility] [address] [place] [address] GFR/1.73 sq M.predicted among non-blacks MDRD (S/P/Bld) [Vol rate/Area] 37 mL/min/1.73 m2 Low >=59 [facility] Comment on above: Order Comment: Order added by Discern Expert. Result Comment: Advisory Intern jin kidney disease could be indicated at eGFR's of less than 60 mL/min/1.73m2. Kidney failure is indicated at less than 15 mL/min/1.73m2. Performed By: #### 1 [id number] ####[facility] [address] [place] [address] Diabetic Self Management Edu cationon 03-26-2022 Diabetic Self Management Education [id number]#1.00 CD:127 Normal [facility] CHEMISTRYOrdered By: Jenni Lazaro on 02-12-2022 HbA1c (Bld) [Mass fraction] 9.3 % High <=5.9% [facility] ChemAutoSS Office Visit (Cardiology)on 01-15-2022 Follow-up visit Diagnoses/Problems Assessed [place]ros[place] coronary artery [place] heart without angina pectoris (414.01) (I25.10) Status [...] vein thrombosis (453.40) (I82.409) Orders Atherosclerosis [place] coronary artery [place] heart without angina pectoris Renew: Aspirin EC [...] complications. 5. Diabetes, managed by endocrinology in [place]. A1c remains above target 6. Hypertension completely under control. 7. High-risk medication with Xarelto, so far well-tolerated. Takes baby aspirin twice weekly 8. Stage III chronic kidney disease to be monitored closely 9. Recent diagnosis of intermittent claudications and PAD followed by vascular surgery Dr. Daniel in [place], she is currently going through walking exercise program Fariha Guidry MD, [facility] Current Meds Medication NameInstruction amLODIPine Besylate [...] and no (more content not included)... Normal [employer] Tobacco Screening.on 022 Fall risk assessment a) No falls within the last year [facility] [employer] 600 DO Work Phone: Tobacco use status [facility] b) No [facility] [employer] 600 DO Work Phone: CHEMISTRYOrdered By: Devora IRELAND User on 01-06-2022 Glucose [Mass/Vol] 166 mg/dL High 55 - 99 mg/dL FTM C POC Subsection POC Device SN [id number] Invalid Interpretation Code FT POC Subsection POC User ID [id number] Invalid Interpretation Code FT POC Subsection POC Username ROSSY ZEPEDA Invalid Interpretation Code [facility] POC Subsection Glucose [Mass/Vol] 166 mg/dL High 55 - 99 mg/dL FTM C POC Subsection Comment on above: Result Comment: Rain evert Meter POC Device SN [id number] Invalid Interpretation Code FT POC Subsection POC User ID [id number] Invalid Interpretation Code FT POC Subsection POC Username ROXANA MILES Invalid Interpretation Code FT POC Subsection CHEMISTRYOrdered By: Devora IRELAND User on 01-01-2022 Glucose [Mass/Vol] 185 mg/dL High 55 - 99 mg/dL FTM C POC Subsection Comment on above: Result Comment: Rain evert Meter POC Device SN [id number] Invalid Interpretation Code [facility] POC Subsection POC User ID [id number] Invalid Interpretation Code [facility] POC Subsection POC Username ROXANA MILES Invalid Interpretation Code [facility] POC Subsection CHEMISTRYOrdered By: Chiquita Zapata on 09-24-2021 Albumin DL <= 20 mg/L (U) [Mass/Vol] 15.8 microgram/mL Normal 0.0 - 19.0 mcg/mL FT Remisol ALT No additional P-5'-P [Catalytic activity/Vol] 39 [iU]/d Normal 6 - 46 Int._Unit/L FT Chem S AST [Catalytic activity/Vol] 43 [iU]/d Normal 5 - 43 Int._Unit/L [facility] Chem S Bilirubin [Mass/Vol] 1.3 mg/dL High 0.0 - 1.1 mg/dL [facility] Chem S Bilirubin.direct [Mass/Vol] 0.4 mg/dL Normal 0.1 - 0.4 mg/dL [facility] Chem S Potassium [Moles/Vol] 4.9 mmol/L Normal 3.5 - 5.3 mmol/L [facility] Chem S CHEMISTRYOrdered By: SYSTEM SYSTEM on [...] 23 mg/dL Normal 7 - 40 mg/dL [facility] Remisol CO2 [Moles/Vol] 31 mmol/L Normal 21 - 31 mmol/L [facility] Remisol Creatinine [Mass/Vol] 1.2 mg/dL Normal 0.5 - 1.3 mg/dL FT Remisol GFR/1.73 sq M.predicted among blacks MDRD (S/P/Bld) [Vol rate/Area] 54 mL/min/1.73 m2 Low >=59mL/min/1.73 m2 [facility] Chem S GFR/1.73 sq M.predicted among non-blacks MDRD (S/P/Bld) [Vol rate/Area] 44 mL/min/1.73 m2 Low >=59mL/min/1.73 m2 [facility] Chem S Globulin (S) [Mass/Vol] 3.8 g/dL Normal 1.4 - 4.0 gm/dL [facility] Remisol Glucose [Mass/Vol] 153 mg/dL Normal 55 - 199 mg/dL [facility] Remisol Protein [Mass/Vol] 7.3 g/dL Normal 6.0 - 7.8 gm/dL [facility] Remisol Sodium [Moles/Vol] 138 mmol/L Normal 135 - 145 mmol/L [facility] Remisol Triglyceride [Mass/Vol] 116 mg/dL Normal <=149mg/dL [facility] Remisol Urea nitrogen [Mass/Vol] 22 mg/dL High 5 - 21 mg/dL [facility] Remisol Urea nitrogen/Creatinine [Mass ratio] 18 mg/mg Normal 10 - 20 [facility] Remisol CHEMISTRYOrdered By: Kevin rick on 09-24-2021 HbA1c (Bld) [Mass fraction] 13.1 % High <=5.9% [facility] ChemAutoSS HEMATOLOGYOrdered By: SYSTEM SYSTEM on 09-24-2021 Basophils/100 WBC (Bld) 0.8 % Normal 0.0 - 2.0 % [facility] HemeAutoSS Basophils/Leukocyte s Auto (Bld) [Pure # fraction] 0.1 E9/L Normal 0.0 - 0.2 E9/L [facility] HemeAutoSS Eosinophils/100 WBC (Bld) 3.2 % Normal [...] 4.3 E12/L Normal 4.3 - 5.9 E12/L [facility] HemeAutoSS WBC corrected for nucl RBC Auto (Bld) [#/Vol] 7.5 E9/L Normal 4.0 - 11.0 E9/L [facility] HemeAutoSS Falls Risk Screeningon 05-28 Fall risk assessment a) No falls within the last year [facility] [employer] 600 DO Work Phone: Heart Rate [...] a scheduled. Same meds Chief Complaint EVON CORCORNA is being seen for hypertension and BP [...] Vital Signs Recorded: 28May2021 12:25PMRecorded: 28May2021 12:21PM [id number], LUE, Xcnhyhi879, RUE, Sitting Cnemwbvhd87, LUE, [id number], RUE, Sitting Heart Rate68, R Radial Pulse QualityRegular, R Radial Height5 ft 5 in Iavdrf188 lb 3.2 oz BMI Wplynnkezq52.98 kg/m2 BSA Calculated2 Fall Screeninga) No falls within the last year Signatures Electronically signed by : Fariha Guidry MD; May 28 2021 3:34PM EST (Author) Normal [employer] Laboratory - Chemistry and C hemistry - challengeon 05-11-2021 Cholesterol [Mass/Vol] 96 mg/dL Normal <=[address] [facility] [employer] DO Work Phone: Cholesterol in LDL [Mass/Vol] 39 mg/dL Normal 7-[address] [facility] [employer] DO Work Phone: CO2 [Moles/Vol] 24 mmol/L Normal 21-[address] [facility] [employer] Up DO Work Phone: Glucose [Mass/Vol] 217 mg/dL above high threshold 55-[address] [facility] [employer] DO Work Phone: Comment on above: If this glucose resu lt represents a fasting glucose, interpretation should refer to the following reference range: 55-99 mg/dL Laboratory - Hematology and Cell countson 05-11-2021 Erythrocyte distribution width (RBC) [Ratio] 13.2 % Normal 10.9-14.2 [facility] feliz 250 DO Work Phone: Hematocrit (Bld) [Volume fraction] 39.5 % Normal 34.0-46.[address] [facility] [employer] fel[employer] 250 DO Work Phone: Platelet mean volume (Bld) [Entitic vol] 11.0 fL above high threshold 6.4-10.[address] [facility] [employer]Lexi feliz 250 DO Work Phone: No Panel Informationon 05-11 14 {mEq/L} Normal 6-[address] [facility] [employer] fel[employer] 250 DO Work Phone: 102 mmol/L Normal 101-[address] [facility] [employer]i fel[employer] 250 DO Work Phone: 4.2 mmol/L Normal 3.5-5.[address] [facility] [employer] fel[employer] 250 DO Work Phone: 136 mmol/L Normal 135-[address] [facility] [employer] fel[employer] 250 DO Work Phone: 8.9 mg/dL Normal 8.9-11.[address] [facility] [employer] fel[employer] 250 DO Work Phone: 25 {No_Units} above high threshold 10-[address] [facility] [employer] fel[employer] 250 DO Work Phone: 1.0 mg/dL Normal 0.5-1.[address] [facility] [employer] fel[employer] 250 DO Work Phone: 25 mg/dL above high threshold 5-[address] [facility] [employer] fel[employer] 250 DO Work Phone: >60 Normal >=[address] [facility] [employer] fel[employer] 250 DO Work Phone: Comment on above: eGFR is race adjuste d. AA=. 55 {mL/min/1.73_m2} below low threshold >=[address] [facility] [employer] feliz 250 DO Work Phone: Comment on above: Chronic kidney disea se could be indicated at eGFR's of less than 60 mL/min/1.73m2. Kidney failure is indicated at less than 15 mL/min/1.73m2. 54 {Int._Unit/L} above high threshold 6-46 [facility] 250 DO Work Phone: 67 {Int._Unit/L} above high threshold 5-43 [facility] 250 DO Work Phone: 197 mg/dL above high threshold <=149 [facility] 250 DO Work Phone: 49 mg/dL [facility] 250 DO Work Phone: Comment on above: HDL > or equal to 60 mg/dL: Low cardiovascular riskHDL < 40 mg/dL : High cardiovascular risk 193 mg/dL Normal 120-200 [facility] 250 DO Work Phone: 229.0 {E9/L} Normal 150.0-500.0 [facility] 250 DO Work Phone: Comment on above: Slide reviewed by BR Platelet count verified using smear estimate. 85.4 fL Normal 80.0-100.0 [facility] 250 DO Work Phone: 33.5 {gm/dL} Normal 31.4-36.0 [facility] 250 DO Work Phone: 28.7 pg Normal 27.0-34.0 [facility] 250 DO Work Phone: 13.2 {gm/dL} Normal 12.0-16.0 [facility] 250 DO Work Phone: 4.6 {E12/L} Normal 4.3-5.9 [facility] 250 DO Work Phone: 6.7 {E9/L} Normal 4.0-11.0 [facility] 250 DO Work Phone: Office Visit (Cardiology)on 05-08-2021 Follow-up visit Diagnoses/Problems Assessed Atherosclerosis [place] coronary artery of [place] heart without angina pectoris (414.01) (I25.10) Chronic kidney disease, stage 3 (585.3) (N18.30) Deep vein thrombosis (453.40) (I82.409) Essential hypertension (401.9) (I10) High risk medication use (V58.69) (Z79.899) Hyperlipidemia (272.4) (E78.5) Status post coronary angioplasty (V45.82) (Z98.61) Never a smoker Class 1 obesity with body mass index (BMI) of 34.0 to 34.9 in adult (278.00,V85.34) (E66.9,Z68.34) Orders Atherosclerosis [place] coronary artery of [place] heart without angina pectoris Renew: Aspirin EC 81 MG Oral Tablet Delayed Release; TAKE ONE TABLET THURSDAY AND THURSDAY Renew: Losartan Potassium 50 MG Oral Tablet; TAKE 1 TABLET TWICE DAILY Atherosclerosis [place] coronary artery of [place] heart without angina pectoris, Chronic kidney disease, stage 3, High risk medication use Basic Metabolic Panel; Status:Active - Retrospective Authorization; Requested for:[id number]; Complete Blood Count; Status:Active - Retrospective Authorization; Requested for:08May2021; Atherosclerosis [place] coronary artery of [place] heart without angina pectoris, Essential hypertension Renew: Metoprolol Succinate ER 50 MG Oral Tablet Extended Release 24 Hour; TAKE 1 TABLET Daily Atherosclerosis [place] coronary artery of [place] heart without angina pectoris, Hyperlipidemia ALT - [...] a smoker Tobacco Use Screening; Status:Complete; Done: [id number] Unlinked Stop: Xarelto 20 MG Oral Tablet [...] to be monitored closely Fariha Guidry MD, [facility] Surgical History Problems History of Angioplasty History of Cholecystectomy History of Colonoscopy History of Hysterectomy Past Medical History Problems History of angina pectoris (V12. (more content not included)... Normal [facility] Tobacco Screening.on 022 Adult depression screening assessment No [facility] [employer] 250 DO Work Phone: Fall risk assessment a) No falls within the last year [facility] [employer] 250 DO Work Phone: Tobacco use status [facility] b) No [facility] [employer] 250 DO Work Phone: Vital Signs Date Time Vital Sign Value Performing Clinician Facility 03-20-2023 09:00-0500 Blood Pressure Location Christopher MEJIADay [employer] [facility] 03-20-2023 09:00-0500 Body temperature 98.42 [degF] Christopher BADay [employer] [facility] 03-20-2023 09:00-0500 Diastolic blood pressure 80 mm[Hg] Christopher WELLS [facility] 03-20-2023 09:00-0500 Heart rate 70 /min Christopher WELLS [facility] 03-20-2023 09:00-0500 Respiratory rate 16 /min Christopher BADay [employer] [facility] 03-20-2023 09:00-0500 SaO2% (BldA) [Mass fraction] 99 % Christopher LIBAN [facility] 03-20-2023 09:00-0500 Systolic blood pressure 132 mm[Hg] Christopher WELLS [facility] 03-04-2023 09:09-0500 Heart rate 80 /min Nicola Tapia [facility] 03-04-2023 09:09-0500 SaO2% (BldA) [Mass fraction] 99 % Nicola Tapia [facility] 03-04-2023 09:09-0500 Diastolic blood pressure 67 mm[Hg] Nicola Tapia [facility] 03-04-2023 09:09-0500 Mean blood pressure 91 mm[Hg] Nicola Tapia [facility] 03-04-2023 09:09-0500 Systolic blood pressure 138 mm[Hg] Nicola Tapia [facility] 03-04-2023 09:09-0500 Respiratory rate 16 /min Nicola Tapia [facility] 03-04-2023 09:04-0500 Diastolic blood pressure 96 mm[Hg] Nicola Tapia [facility] 03-04-2023 09:04-0500 Heart rate 84 /min Nicola Tapia [facility] 03-04-2023 09:04-0500 SaO2% (BldA) [Mass fraction] 98 % Nicola Tapia [facility] 03-04-2023 09:04-0500 Systolic blood pressure 165 mm[Hg] Nicola Tapia [facility] 03-04-2023 08:12-0500 Heart rate 82 /min Nicola Tapia [facility] 03-04-2023 08:12-0500 SaO2% (BldA) [Mass fraction] 97 % Nicola Tapia [facility] 03-04-2023 08:12-0500 Diastolic blood pressure 75 mm[Hg] Nicola Tapia [facility] 03-04-2023 08:12-0500 Mean blood pressure 103 mm[Hg] Nicola Tapia [facility] 03-04-2023 08:12-0500 Systolic blood pressure 159 mm[Hg] Nicola Tapia [facility] 03-04-2023 08:12-0500 Body temperature 98.42 [degF] Nicola Tapia [facility] 03-04-2023 08:11-0500 Respiratory rate 14 /min Nicola Tapia [facility] 03-03-2023 11:45-0500 Body height 165.1 cm Miguel Membreno Other [employer] Other 03-03-2023 11:45-0500 Body mass index (BMI) [Ratio] 33.28 kg/m2 Miguel Membreno Other [employer] Other 03-03-2023 11:45-0500 Body temperature 97.8 [degF] Miguel Membreno Other [employer] Other 03-03-2023 11:45-0500 Body weight 90.72 kg Miguel Martinezremelissa Other [employer] Other 03-03-2023 11:45-0500 Diastolic blood pressure 72 mm[Hg] Miguel Membreno Other [employer] Other 03-03-2023 11:45-0500 SaO2% (BldA) [Mass fraction] 96 % Miguel Membreno Other [employer] Other 03-03-2023 11:45-0500 Systolic blood pressure 124 mm[Hg] Miguel Martinezremelissa Other [employer] Other 02-18-2023 13:40-0500 Diastolic blood pressure 70 mm[Hg] DO Christopher Kaple Work Phone: [facility] 02-18-2023 13:40-0500 Heart rate 64 /min DO Christopher Kaple Work Phone: [facility] 02-18-2023 13:40-0500 Respiratory rate 16 /min DO Christopher Kaple Work Phone: [facility] 02-18-2023 13:40-0500 SaO2% (BldA) [Mass fraction] 98 % DO Christopher Kaple Work Phone: [facility] 02-18-2023 13:40-0500 Systolic blood pressure 169 mm[Hg] DO Christopher Kaple Work Phone: [facility] 02-18-2023 12:40-0500 Inhaled oxygen flow rate 1 L/min DO Christopher Kaple Work Phone: [facility] 02-18-2023 09:15-0500 Body height 165.1 cm DO Christopher Kaple Work Phone: [facility] 02-18-2023 09:15-0500 Body weight 97.52 kg DO Christopher Kaple Work Phone: [facility] 02-16-2023 13:23-0500 Heart rate 76 /min Gary Prashant [facility] 02-16-2023 13:23-0500 SaO2% (BldA) [Mass fraction] 96 % Gary Prashant [facility] 02-16-2023 13:22-0500 Diastolic blood pressure 80 mm[Hg] Gary Prashant [facility] 02-16-2023 13:22-0500 Mean blood pressure 105 mm[Hg] Gary Prashant [facility] 02-16-2023 13:22-0500 Systolic blood pressure 155 mm[Hg] Gary Cerda [facility] 02-16-2023 13:22-0500 Body temperature 97.7 [degF] Gary Cerda [facility] 02-16-2023 13:21-0500 Respiratory rate 16 /min Gary Cerda [facility] 02-12-2023 09:03-0500 Body height 165.1 cm Fariha Guidry MD Work Phone: [facility] 02-12-2023 09:03-0500 Body mass index (BMI) [Ratio] 35.78 kg/m2 Fariha Guidry MD Work Phone: [facility] 02-12-2023 09:03-0500 Body weight 97.52 kg Fariha Guidry MD Work Phone: [facility] 02-12-2023 09:03-0500 Diastolic blood pressure 64 mm[Hg] Fraiha Guidry MD Work Phone: [facility] 02-12-2023 09:03-0500 Heart rate 64 /min Fariha Guidry MD Work Phone: [facility] 02-12-2023 09:03-0500 Systolic blood pressure 120 mm[Hg] Fariha Guidry MD Work Phone: [facility] 01-26-2023 08:00-0500 Blood Pressure Location Christopher WELLS [facility] 01-26-2023 08:00-0500 Body temperature 98.6 [degF] Christopher WELLS [facility] 01-26-2023 08:00-0500 Diastolic blood pressure 72 mm[Hg] Christopher WELLS [facility] 01-26-2023 08:00-0500 Heart rate 65 /min Christopher WELLS [facility] 01-26-2023 08:00-0500 SaO2% (BldA) [Mass fraction] 96 % Christopher WELLS [facility] 01-26-2023 08:00-0500 Systolic blood pressure 124 mm[Hg] Christopher WELLS [facility] 01-06-2023 08:13-0400 Diastolic blood pressure 78 mm[Hg] Gary Prashant [facility] 01-06-2023 08:13-0400 Heart rate 69 /min Gary Prashant [facility] 01-06-2023 08:13-0400 Mean blood pressure 107 mm[Hg] Gary Prashant [facility] 01-06-2023 08:13-0400 Respiratory rate 14 /min Gary Prashant [facility] 01-06-2023 08:13-0400 Systolic blood pressure 166 mm[Hg] Gary Prashant [facility] 01-05-2023 09:15-0400 Body height 165.1 cm Miguel Membreno Other [facility] [employer] Other 01-05-2023 09:15-0400 Body mass index (BMI) [Ratio] 33.28 kg/m2 Miguel Membreno Other [employer] Other 01-05-2023 09:15-0400 Body temperature 96.3 [degF] Miguel Membreno Other [employer] Other 01-05-2023 09:15-0400 Body weight 90.72 kg Miguel Membreno Other [employer] Other 01-05-2023 09:15-0400 Diastolic blood pressure 62 mm[Hg] Miguel Buehrer Other [employer] Other 01-05-2023 09:15-0400 SaO2% (BldA) [Mass fraction] 97 % Miguel Buehrer Other [employer] Other 01-05-2023 09:15-0400 Systolic blood pressure 120 mm[Hg] Miguel Buehrer Other [employer] Other 11-04-2022 12:00-0400 Body height 165.1 cm Miguel Michellerer Other [employer] Other 11-04-2022 12:00-0400 Body mass index (BMI) [Ratio] 33.28 kg/m2 Miguel Buehrer Other [employer] Other 11-04-2022 12:00-0400 Body temperature 97.1 [degF] Miguel Darrionehrer Other [employer] Other 11-04-2022 12:00-0400 Body weight 90.72 kg Miguel Buehrer Other [employer] Other 11-04-2022 12:00-0400 Diastolic blood pressure 70 mm[Hg] Miguel Buehrer Other [employer] Other 11-04-2022 12:00-0400 SaO2% (BldA) [Mass fraction] 95 % Miguel Buehrer Other [employer] Other 11-04-2022 12:00-0400 Systolic blood pressure 140 mm[Hg] Miguel Membreno Other [employer] Other 11-03-2022 10:30-0400 Body height 165.1 cm Renetta Barahona Other [employer] Other 11-03-2022 10:30-0400 Body mass index (BMI) [Ratio] 33.28 kg/m2 Renetta Patmargaret Other [employer] Other 11-03-2022 10:30-0400 Body temperature 97.6 [degF] Renetta Patmargaret Other [employer] Other 11-03-2022 10:30-0400 Body weight 90.72 kg Renetta Patmargaret Other [employer] Other 11-03-2022 10:30-0400 Diastolic blood pressure 76 mm[Hg] Renetta Patmargaret Other [employer] Other 11-03-2022 10:30-0400 SaO2% (BldA) [Mass fraction] 98 % Renetta Patmargaret Other [employer] Other 11-03-2022 10:30-0400 Systolic blood pressure 116 mm[Hg] Renetta [place] Other [employer] Other 09-10-2022 08:12-0400 Blood Pressure Location Linda Solorio [facility] 09-10-2022 08:12-0400 Body temperature 96.8 [degF] Linda Solorio [facility] 09-10-2022 08:12-0400 Diastolic blood pressure 71 mm[Hg] Linda Osmin [facility] 09-10-2022 08:12-0400 Heart rate 56 /min Linda Osmin [facility] 09-10-2022 08:12-0400 Systolic blood pressure 118 mm[Hg] Linda Osmin [facility] 06-11-2022 09:10-0400 Diastolic blood pressure 70 mm[Hg] Linda Osmin [facility] 06-11-2022 09:10-0400 Mean blood pressure 92 mm[Hg] Linda Osmin [facility] 06-11-2022 09:10-0400 Systolic blood pressure 136 mm[Hg] Linda Osmin [facility] 06-11-2022 09:04-0400 Blood Pressure Location Linda Osmin [facility] 06-11-2022 09:04-0400 Body temperature 97.88 [degF] Linda Osmin [facility] 06-11-2022 09:04-0400 Diastolic blood pressure 75 mm[Hg] Linda Osmin [facility] 06-11-2022 09:04-0400 Heart rate 66 /min Linda Osmin [facility] 06-11-2022 09:04-0400 Systolic blood pressure 155 mm[Hg] Linda Osmin [facility] 05-05-2022 09:45-0500 Body height 165.1 cm Miguel Samuels [employer] Other 05-05-2022 09:45-0500 Body mass index (BMI) [Ratio] 33.28 kg/m2 Miguel Martinezrer Other [employer] Other 05-05-2022 09:45-0500 Body temperature 96.2 [degF] Miguel Martinezrer Other [employer] Other 05-05-2022 09:45-0500 Body weight 90.72 kg Miguel Martinezrer Other [employer] Other 05-05-2022 09:45-0500 Diastolic blood pressure 60 mm[Hg] Miguel Darrionsaudrer Other [employer] Other 05-05-2022 09:45-0500 SaO2% (BldA) [Mass fraction] 97 % Miguel Martinezrer Other [employer] Other 05-05-2022 09:45-0500 Systolic blood pressure 112 mm[Hg] Miguel Martinezrer Other [employer] Other 04-07-2022 20:00-0500 Diastolic blood pressure 80 mm[Hg] DO Christopher Kaple Work Phone: [facility] 04-07-2022 20:00-0500 Heart rate 70 /min DO Christopher Kaple Work Phone: [facility] 04-07-2022 20:00-0500 Respiratory rate 18 /min DO Christopher Kaple Work Phone: [facility] 04-07-2022 20:00-0500 SaO2% (BldA) [Mass fraction] 98 % DO Christopher Kaple Work Phone: [facility] 04-07-2022 20:00-0500 Systolic blood pressure 159 mm[Hg] DO Christopher Kaple Work Phone: [facility] 04-07-2022 17:05-0500 Body temperature 98.1 [degF] DO Christopher Kaple Work Phone: [facility] 04-07-2022 16:20-0500 Inhaled oxygen flow rate 2 L/min DO Christopher Kaple Work Phone: [facility] 04-07-2022 13:53-0500 Body height 165.1 cm DO Christopher Kaple Work Phone: [facility] 04-07-2022 13:53-0500 Body weight 90.71 kg DO Christopher Wells Work Phone: [facility] 03-31-2022 10:15-0500 Body height 165.1 cm Renetta Barahona Other [facility] [employer] Other 03-31-2022 10:15-0500 Body mass index (BMI) [Ratio] 33.28 kg/m2 Renetta Barahona Other [employer] Other 03-31-2022 10:15-0500 Body temperature 98.7 [degF] Renetta Barahona Other [employer] Other 03-31-2022 10:15-0500 Body weight 90.72 kg Renetta Barahona Other [employer] Other 03-31-2022 10:15-0500 Diastolic blood pressure 82 mm[Hg] Renetta Barahona Other [employer] Other 03-31-2022 10:15-0500 SaO2% (BldA) [Mass fraction] 98 % Renetta Pattino Other [employer] Other 03-31-2022 10:15-0500 Systolic blood pressure 136 mm[Hg] Renetta Patmargaret Other [employer] Other 01-27-2022 12:00-0500 Body height 165.1 cm Miguel Martinezrer Other [employer] Other 01-27-2022 12:00-0500 Body mass index (BMI) [Ratio] 33.28 kg/m2 Miguel Maierehrer Other [employer] Other 01-27-2022 12:00-0500 Body temperature 97.7 [degF] Miguel Martinezrer Other [employer] Other 01-27-2022 12:00-0500 Body weight 90.72 kg Miguel Maierehrer Other [employer] Other 01-27-2022 12:00-0500 Diastolic blood pressure 70 mm[Hg] Miguel Martinezrer Other [employer] Other 01-27-2022 12:00-0500 SaO2% (BldA) [Mass fraction] 98 % Miguel Buehrer Other [employer] Other 01-27-2022 12:00-0500 Systolic blood pressure 142 mm[Hg] Miguel Buehrer Other [employer] Other 01-15-2022 10:29-0400 Body height 165.1 cm Christopher Wells Work Phone: [place] [address] DO Work Phone: 01-15-2022 10:29-0400 Body mass index (BMI) [Ratio] 34.95 kg/m2 Christopher Wells Work Phone: [facility] [employer] 600 DO Work Phone: 01-15-2022 10:29-0400 Body surface area Derived from formula 2.02 m2 Christopher Wells Work Phone: [facility] [employer] 600 DO Work Phone: 01-15-2022 10:29-0400 Body weight 95.26 kg Christopher Wells Work Phone: [facility] [employer] 600 DO Work Phone: 01-15-2022 10:29-0400 Diastolic blood pressure 60 mm[Hg] Christopher Wells Work Phone: [facility] [employer] 600 DO Work Phone: 01-15-2022 10:29-0400 Heart rate 68 /min Christopher Wells Work Phone: [facility] [employer] 600 DO Work Phone: 01-15-2022 10:29-0400 Systolic blood pressure 116 mm[Hg] Christopher Wells [facility] 600 DO Work Phone: 11-28-2021 15:19-0400 Blood Pressure Location Charis Fredy [facility] 11-28-2021 15:19-0400 Diastolic blood pressure 69 mm[Hg] Charis Daniel [facility] 11-28-2021 15:19-0400 Heart rate 61 /min Charis Daniel [facility] 11-28-2021 15:19-0400 Respiratory rate 18 /min Charis Daniel [facility] 11-28-2021 15:19-0400 SaO2% (BldA) [Mass fraction] 98 % Charis Daniel [facility] 11-28-2021 15:19-0400 Systolic blood pressure 132 mm[Hg] Charis Daniel [facility] 10-28-2021 09:56-0400 Blood Pressure Location Charis Daniel [facility] 10-28-2021 09:56-0400 Diastolic blood pressure 72 mm[Hg] Charis Daniel [facility] 10-28-2021 09:56-0400 Heart rate 76 /min Charis Daniel [facility] 10-28-2021 09:56-0400 SaO2% (BldA) [Mass fraction] 96 % Charis Daniel [facility] 10-28-2021 09:56-0400 Systolic blood pressure 120 mm[Hg] Charis Daniel [facility] 05-28-2021 12:25-0400 Diastolic blood pressure 64 mm[Hg] [facility] Work Phone: 05-28-2021 12:25-0400 Systolic blood pressure 130 mm[Hg] Christopher Wells Work Phone: [facility] [employer] 600 DO Work Phone: 05-28-2021 12:21-0400 Body height 165.1 cm Christopher Wells Work [facility]: [facility] 600 DO Work Phone: 05-28-2021 12:21-0400 Body mass index (BMI) [Ratio] 33.98 kg/m2 Christopher Wells Work Phone: [facility] [employer] 600 DO Work Phone: 05-28-2021 12:21-0400 Body surface area Derived from formula 2 m2 Christopher Wells Work Phone: [facility] 600 DO Work Phone: 05-28-2021 12:21-0400 Body weight 92.63 kg Christopher Wells Work Phone: [facility] 600 DO Work Phone: 05-28-2021 12:21-0400 Diastolic blood pressure 76 mm[Hg] Christopher Wells Work Phone: [facility] 600 DO Work Phone: 05-28-2021 12:21-0400 Heart rate 68 /min Christopher [facility] Work Phone: 05-28-2021 12:21-0400 Systolic blood pressure 140 mm[Hg] Christopher Wells Work Phone: [facility] 600 DO Work Phone: 05-08-2021 11:36-0500 Diastolic blood pressure 90 mm[Hg] Christopher Wells Work Phone: [facility] [employer] 250 DO Work Phone: 05-08-2021 11:36-0500 Systolic blood pressure 180 mm[Hg] Christopher Wells Work Phone: [facility] [employer] 250 DO Work Phone: 05-08-2021 11:20-0500 Body height 165.1 cm Christopher Wells Work Phone: [facility] 250 DO Work Phone: 02-23-2022 11:20-0500 Body mass index (BMI) [Ratio] 34.11 kg/m2 Christopher Montenegro Kaple Work Phone: [facility] 250 DO Work Phone: 05-08-2021 11:20-0500 Body surface area Derived from formula 2 m2 Christopher Wells Work Phone: [facility] 250 DO Work Phone: 05-08-2021 11:20-0500 Body weight 92.99 kg Christopher Montenegro Kaple Work Phone: [facility] 250 DO Work Phone: 05-08-2021 11:20-0500 Diastolic blood pressure 90 mm[Hg] Christopher Bale Work Phone: [facility] 250 DO Work Phone: 05-08-2021 11:20-0500 Heart rate 68 /min Christopher Bale Work Phone: [facility] 250 DO Work Phone: 05-08-2021 11:20-0500 Systolic blood pressure 142 mm[Hg] Christopher Wells Work Phone: [facility] 250 DO Work Phone: Encounters Encounter Date Encounter Type Care Provider Facility Start: 03-23-2023 End: 03-24-2023 ambulatory Mara Pastor Facility:[facility] Start: 03-20-2023 End: 03-21-2023 ambulatory Christopher WELLS Facility:[facility] Start: 03-20-2023 End: 03-20-2023 Patient encounter procedure Christopher WELLS [facility] Start: 03-18-2023 End: 03-18-2023 ambulatory DENTON CASTRO Not Available Start: 03-04-2023 End: 03-05-2023 ambulatory DO Nicola Tapia Facility:[facility] Start: 03-04-2023 End: 03-04-2023 Pain Management Nicola Tapia [facility] Start: 03-03-2023 End: 03-03-2023 Patient encounter procedure Denton Castro [facility] Start: 03-03-2023 End: 03-04-2023 ambulatory Denton Castro [facility] [employer] Other Start: 03-03-2023 Office outpatient vi sit 25 minutes Miguel Membreno [facility] Vascular Surgery Start: 03-02-2023 End: 03-03-2023 ambulatory Linda Solorio Facility:[facility] Start: 03-02-2023 End: 03-02-2023 Patient encounter procedure Linda Solorio [facility] Start: 02-24-2023 End: 02-25-2023 ambulatory Denton Castro Facility:[facility] Start: 02-20-2023 End: 02-20-2023 ambulatory DENTON CASTRO Not Available Start: 02-19-2023 ambulatory Christopher WELLS Facility: [id number] Start: 02-18-2023 End: 02-18-2023 ambulatory Miguel Membreno Facility:[facility] Start: 02-18-2023 End: 02-18-2023 Admission to same day surgery center DO Christopher Wells Work Phone: [facility] Work Phone: Start: 02-18-2023 End: 02-18-2023 ambulatory DO Christopher Wells Work Phone: [facility] Work Phone: Start: 02-16-2023 End: 02-17-2023 ambulatory MD Gary Cerda Facility:[facility] Start: 02-16-2023 End: 02-16-2023 Pain Management Gary Cerda [facility] Start: 02-16-2023 End: 02-17-2023 ambulatory Denton Castro Facility:[facility] Start: 02-16-2023 End: 02-16-2023 Patient encounter procedure Denton Castro [facility] Start: 02-12-2023 End: 02-12-2023 ambulatory [facility] Ambulatory Start: 02-12-2023 End: 02-12-2023 Office outpatient visit 25 minutes Fariha Guidry MD Work Phone: [facility] Comment on above: Atherosclerosis of n [place]ive coronary artery of [place] heart without angina pectoris; Status post coronary angioplasty; Essential hypertension; Hyperlipidemia, unspecified hyperlipidemia type; PVD (peripheral vascular disease) ([facility]); Stage 3 chronic kidney disease, unspecified whether stage 3a or 3b CKD ([facility]); Sleep apnea, unspecified type Start: 02-10-2023 End: 02-11-2023 ambulatory Denton Castro Facility:[facility] Start: 02-10-2023 End: 02-10-2023 Patient encounter procedure Denton Castro [facility] Start: 01-27-2023 End: 01-28-2023 ambulatory Denton Castro [place] [employer] Other Start: 01-27-2023 Telephone encounter Miguel Membreno [facility] Vascular Surgery Start: 01-27-2023 End: 01-27-2023 Patient encounter procedure Denton Castro [facility] Start: 01-26-2023 End: 01-27-2023 ambulatory Christopher WELLS Facility:[facility] Start: 01-26-2023 End: 01-26-2023 Patient encounter procedure Christopher WELLS [facility] Start: 01-26-2023 End: 01-26-2023 Well adult monitoring check done Christopher WELLS [facility] Start: 01-19-2023 End: 01-20-2023 ambulatory Denton Castro Facility:[facility] Start: 01-19-2023 End: 01-19-2023 Patient encounter procedure Denton Castro [facility] Start: 01-13-2023 End: 01-14-2023 ambulatory Denton Castro Facility:[facility] Start: 01-13-2023 End: 01-13-2023 Patient encounter procedure Denton Castro [facility] Start: 01-06-2023 End: 01-07-2023 ambulatory MD Gary Cerda Facility:[facility] Start: 01-06-2023 End: 01-06-2023 Pain Management Gary Cerda [facility] Start: 01-05-2023 End: 01-05-2023 ambulatory Miguel Membreno Other [employer] Other Start: 01-05-2023 Office outpatient vi sit 25 minutes Miguel Membreno [facility] Vascular Surgery Start: 12-31-2022 End: 01-01-2023 ambulatory Catrachito Wolf Facility:[facility] Start: 12-31-2022 End: 12-31-2022 Patient encounter procedure Catrachito Wolf [facility] Start: 12-22-2022 End: 12-23-2022 ambulatory Denton Castro Facility:[facility] Start: 12-18-2022 End: 12-19-2022 ambulatory Christopher WELLS Facility:[facility] Start: 12-08-2022 End: 12-09-2022 ambulatory Catrachito Wolf Facility:[facility] Start: 12-08-2022 End: 12-08-2022 Patient encounter procedure Catrachito Wolf [facility] Start: 11-24-2022 End: 11-25-2022 ambulatory Christopher WELLS Facility:[facility] Start: 11-24-2022 End: 11-24-2022 Patient encounter procedure Christopher WELLS [facility] Start: 11-06-2022 End: 11-07-2022 ambulatory Christopher WELLS Facility:[facility] Start: 11-04-2022 Office outpatient vi sit 25 minutes Miguel Membreno [facility] Vascular Surgery Start: 11-04-2022 End: 11-04-2022 ambulatory DO Christopher Wells Work Phone: [facility] [employer] Other Start: 11-04-2022 End: 11-04-2022 Patient encounter procedure DO Christopher Wells Work Phone: [facility] Start: 11-03-2022 Follow-up encounter Renetta Musa [facility] Start: 11-03-2022 End: 11-03-2022 ambulatory Christopher Wells [facility] [employer] Other Start: 11-03-2022 End: 11-03-2022 Patient encounter procedure DO Christopher Wells Work Phone: [facility] Start: 10-31-2022 End: 11-01-2022 ambulatory Klaus Akkina Facility:[facility] Start: 10-31-2022 End: 10-31-2022 Patient encounter procedure Klaus Akkina [facility] Start: 09-18-2022 Chart Update Christopher Wells Work Phone: [facility] 250 DO Work Phone: Start: 09-17-[address] Christopher Moulton [id number] Start: 09-10-2022 End: 09-11-2022 ambulatory Linda Solorio Facility:[facility] Start: 09-10-2022 End: 09-10-2022 Patient encounter procedure Linda Solorio [facility] Start: 08-01-2022 End: 08-02-2022 ambulatory Fariha Guidry Facility:[facility] Start: 07-23-2022 Rx Renewal Christopher [facility]i Wells [facility] Work Phone: Start: 06-13-2022 Rx Renewal Christopher A Kaple Work Phone: [facility] 250 DO Work Phone: Start: 06-11-2022 End: 06-12-2022 ambulatory Lidnajahaira Solorio Facility:[facility] Start: 06-11-2022 End: 06-11-2022 Patient encounter procedure Lindajahaira Solorio [facility] Start: 05-21-2022 End: 05-22-2022 ambulatory Luis BENSON Facility:[facility] Start: 05-08-2022 End: 05-09-2022 ambulatory Lindajahaira Solorio Facility:[facility] Start: 05-08-2022 End: 05-08-2022 Lab Drop off Linda Moni Osmin [facility] Start: 05-05-2022 End: 05-06-2022 ambulatory Lindajahaira Solorio [facility] [employer] Other Start: 05-05-2022 Office outpatient vi sit 25 minutes Miguel Membreno [facility] Vascular Surgery Start: 04-08-2022 End: 04-08-2022 ambulatory Renetta Barahona Other [facility] [employer] Other Start: 04-08-2022 Telephone encounter Renetta Musa [facility] Start: 04-07-2022 End: 04-07-2022 ambulatory Miguel Membreno Facility:[facility] Start: 04-07-2022 End: 04-07-2022 Admission to same day surgery center DO Christopher Wells Work Phone: [facility] Work Phone: Start: 04-07-2022 End: 04-07-2022 ambulatory DO Christopher Wells Work Phone: [facility] Work Phone: Start: 04-02-2022 ambulatory Christopher WELLS Facility:[facility] Start: 03-31-2022 Follow-up encounter Renetta Musa [facility] Start: 03-31-2022 End: 03-31-2022 ambulatory Miguel Membreno Facility:[facility] Start: 03-31-2022 End: 04-01-2022 ambulatory DO Christopher Wells Work Phone: [facility] Work Phone: Start: 03-31-2022 End: 03-31-2022 Patient encounter procedure DO Christopher Wells Work Phone: [facility] Start: 03-31-2022 End: 03-31-2022 Patient encounter procedure Klaus Núñez [facility] Start: 02-12-2022 End: 02-12-2022 Patient encounter procedure Christopher WELLS [facility] Start: 01-27-2022 End: 01-27-2022 ambulatory Miguel Membreno Other [facility] [employer] Other Start: 01-27-2022 Office outpatient ne w 45 minutes Miguel Membreno [facility] Vascular Surgery Start: 01-15-[address] Fariha Guidry Facility: Start: 01-15-2022 Office outpatient vi sit 25 minutes Christopher Wells Work Phone: [facility] 600 DO Work Phone: Start: 12-31-2021 End: 06-01-2022 Recurring Charis Daniel [facility] Start: 11-28-2021 End: 11-28-2021 Patient encounter procedure Charis Daniel [facility] Start: 11-12-2021 Rx Renewal Christopher Wells Work Phone: [facility] 250 DO Work Phone: Start: 10-28-2021 Rx Renewal Christopher Wells Work Phone: [facility] 250 DO Work Phone: Start: 10-28-2021 End: 10-28-2021 [facility] Start: 10-01-2021 End: 10-01-2021 Patient encounter procedure Christopher WELLS [facility] Start: 09-24-2021 End: 09-24-2021 Patient encounter procedure Christopher WELLS [facility] Start: 08-08-2021 End: 08-08-2021 Patient encounter procedure Christopher WELLS [facility] Start: 07-30-2021 Rx Renewal Christopher Wells Work Phone: [facility] 250 DO Work Phone: Start: 06-12-2021 End: 01-13-2022 Recurring Christopher WELLS [facility] Start: 05-28-2021 Office outpatient vi sit 10 minutes Christopher Wells Work Phone: [facility] 600 DO Work Phone: Start: 05-28-2021 ambulatory Christopher Wells Facility: Start: 05-12-2021 Chart Update Christopher Wells Work Phone: [facility] 250 DO Work Phone: Start: 05-08-2021 ambulatory [...] 05-21-2032 Screening for malignant neoplasm of colon [facility] Start: 05-09-2025 DTaP/Tdap/Td Vaccines (2 - Td or Tdap) DTaP/Tdap/Td Vaccines (2 - Td or Tdap) [facility] Start: 02-01-2024 ambulatory Ambulatory Facility:[facility] Start: 07-28-2023 ambulatory Ambulatory Facility:[facility] Start: 02-18-2023 US Lower extremity veins - bilateral [facility] Start: 02-18-2023 US scan venography of lower limbs US venous mapping [facility] Start: 02-18-2023 [facility] Start: 02-12-2023 End: 02-13-2024 Alanine aminotransferase [Enzymatic activity/volume] in Serum or Plasma by With P-5'-P Alanine Aminotransferase Lab Routine Atherosclerosis [place] coronary artery of [place] heart without angina pectoris Hyperlipidemia, unspecified hyperlipidemia type Expected: 02/12/2023 (Approximate), Expires: 02/13/2024 [facility] Service Area Work Phone: Comment on above: Expected: 02/12/2023 (Approximate), Expi res: 02/13/2024 Start: 02-12-2023 End: 02-13-2024 Aspartate aminotransferase [Enzymatic activity/volume] in Serum or Plasma by With P-5'-P Aspartate Aminotransferase Lab Routine Atherosclerosis [place] coronary artery of [place] heart without angina pectoris Hyperlipidemia, unspecified hyperlipidemia type Expected: 02/12/2023 (Approximate), Expires: 02/13/2024 [facility] Work Phone: Comment on above: Expected: 02/12/2023 (Approximate), Expi res: 02/13/2024 Start: 02-12-2023 End: 02-13-2024 Lipid 1996 panel - Serum or Plasma Lipid Panel Lab Routine Atherosclerosis of [place] coronary artery of [place] heart without angina pectoris Hyperlipidemia, unspecified hyperlipidemia type Expected: 02/12/2023 (Approximate), Expires: 02/13/2024 [facility] Work Phone: Comment on above: Expected: 02/12/2023 (Approximate), Expi res: 02/13/2024 Start: 02-12-2023 FUV, Provider: Fariha Guidry, Status: Pen, Time: 9:00 AM FUV, Provider: Fariha Guidry, Status: Pen, Time: 9:00 AM [facility] Work Phone: Start: 11-14-2022 Influenza vaccination Influenza Vaccine (#1) [facility] Start: 07-30-2022 FUV, Provider: Fariha Guidry, Status: Pen, Time: 8:40 AM FUV, Provider: Fariha Guidry, Status: Pen, Time: 8:40 AM [facility] Work Phone: Start: 04-07-2022 [facility] Start: 02-12-2022 COVID-19 Vaccine (4 - Booster for Luca series) COVID-19 Vaccine (4 - Booster for Luca series) [facility] Start: 01-15-2022 FUV, Provider: Fariha Guidry, Status: Pen, Time: 10:10 AM FUV, Provider: Fariha Guidry, Status: Pen, Time: 10:10 AM [facility] 250 DO Work Phone: Start: 05-28-2021 NURSEVST, Provider: CITLALLI RASHID JAMMER HOOKER 1,[id number], Status: Pen, Time: 11:45 AM NURSEVST, Provider: CITLALLI RASHID JAMMER HOOKER 1,[id number], Status: Pen, Time: 11:45 AM [facility] 250 DO Work Phone: Start: 1989 Screening for malignant neoplasm of breast Mammogram [facility] Start: 06-25-1967 Diabetes mellitus screening Diabetes Screening [facility] Start: 06-25-1967 Hepatitis C screening Hepatitis C Screening [facility] Start: 1949 Lipid panel Lipid Panel [facility] Start: 1949 Medicare Annual Wellness Visit Medicare Annual Wellness Visit (AWV) [facility] Start: 1949 Screening for malignant neoplasm of colon [facility] Start: 1949 Screening for osteoporosis Bone Density Scan [facility] [facility] Patient [facility] Work Phone: Patient referral [facility] Work Phone: Immunizations Immunization Date Immunization Notes Care Provider Fa christo 12-18-2021 Fluad Quadrivalent 0 .5 ML Intramuscular Prefilled Syringe Christopher Wells Work Phone: [facility] 600 DO Work Phone: 12-18-2021 influenza virus vaccine, unspecified formulation Christopher WELLS [facility] 12-18-2021 Pfizer COVID-19 Vac Bivalent 30 MCG/0.3ML Intramuscular Suspension Christopher Wells Work Phone: [facility] 600 DO Work Phone: 12-18-2021 SARS-CoV-2 (COVID-19 ) mRNA BNT-162b2 vax Christopher WELLS [facility] 03-26-2021 Fluzone High-Dose Quadrivalent 0.7 ML Intramuscular Suspension Prefilled Syringe Christopher Wells Work Phone: [facility] 250 DO Work Phone: 03-26-2021 influenza virus vaccine, unspecified formulation Christopher WELLS [facility] 03-26-2021 Pfizer-BioNTech COVID-19 Vacc 30 MCG/0.3ML Intramuscular Suspension Christopher Wells Work Phone: [place] [address] DO Work Phone: 05-19-2020 Luca COVID-19 Vaccine 0.5 ML Intramuscular Suspension Christopher Wells Work Phone: [place] [address] DO Work Phone: 05-18-2020 COVID-19 vaccine, vector-nr, rS-Ad26, PF, 0.5 mL; Translations: [Luca COVID-19 Vaccine] Christopher WELLS [facility] Comment on above: Reason for Medicatio n: Prophylaxis Reason for Medicatio n: Prophylaxis 02-23-2020 zoster vaccine recombinant Christopher Moni Wells Work Phone: [place] [address] DO Work Phone: 01-05-2020 Fluad Quadrivalent 0 .5 ML Intramuscular Prefilled Syringe Christopher Wells Work Phone: [place] [address] DO Work Phone: 01-05-2020 influenza virus vaccine, unspecified formulation Christopher LIBAN [facility] 12-28-2019 influenza, high dose seasonal, preservative-free Christopher Wells Work Phone: [place] [address] DO Work Phone: 12-15-2019 influenza virus vaccine, unspecified formulation Christopher WELLS [facility] 11-15-2019 zoster vaccine recombinant Christopher Moni Wells Work Phone: [place] [address] DO Work Phone: 11-15-2019 zoster vaccine, live Christopher MARTI [facility] 12-20-2018 influenza, high dose seasonal, preservative-free Christopher MEJIALE [facility] 12-14-2018 influenza virus vaccine, unspecified formulation Christopher KAPLE [facility] 12-14-2018 influenza, high dose seasonal, preservative-free Christopher Montenegro Kaple Work Phone: [place] [address] DO Work Phone: 12-14-2018 pneumococcal polysaccharide vaccine, 23 valent Chritsopher Montenegro Kaple Work Phone: [place] [address] DO Work Phone: 02-16-2018 influenza virus vaccine, unspecified formulation Christopher MEJIALE [facility] 02-16-2018 Influenza, injectabl e, Madin [place] Canine Kidney, preservative free, quadrivalent Christopher Montenegro Kaple Work Phone: [place] [address] DO Work Phone: 02-16-2018 pneumococcal conjuga te vaccine, 13 valent Christopher Montenegro Kaple Work Phone: [place] [address] DO Work Phone: 11-14-2017 influenza virus vaccine, unspecified formulation Christopher Montenegro Kapjanna Work Phone: [place] [address] DO Work Phone: 11-27-2016 influenza virus vaccine, unspecified formulation Christopher BALE [facility] 11-27-2016 influenza, high dose seasonal, preservative-free Christopher Wells Work Phone: [facility] 250 DO Work Phone: 01-21-2016 influenza virus vaccine, unspecified formulation Christopher WELLS [facility] 01-21-2016 influenza, high dose seasonal, preservative-free Christopher Moni Mejiajanna Work Phone: [facility] 250 DO Work Phone: 05-09-2015 tetanus toxoid, redu louise diphtheria toxoid, and acellular pertussis vaccine, adsorbed Christopher Wells Work Phone: [facility] 250 DO Work Phone: 02-26-2009 novel [id number], preservative-free, injectable Christopher Moni Mejiajanna Work Phone: [place] [address] DO Work Phone: NEGATED: Highlighted row has not occurred!02-27-2023 influenza virus vaccine, unspecified formulation Linda Solorio [facility] NEGATED: Highlighted row has not occurred!12-18-2022 influenza virus vaccine, unspecified formulation Catrachito Wolf [facility] Payers Date Payer Category Payer Self-pay [id number] 2022 Unknown [id number] 2018 Unknown 2018 Unknown [id number] 2014 Medicare [id number] 2014 Medicare MEDICARE MEDICAR E PART A AND B [id number] 2014-Present [address] [place] [address] [id number]. [id number] 1949 Unknown [id number] 2.16.840.1.500523.3.579.2.356 1949 Unknown [id number] 2.16.840.1.836920.3.579.2.356 1949 Unknown [id number] 2.16.840.1.391507.3.579.2.356 1949 Unknown [id number] 2.16.840.1.473041.3.579.2.1068 1949 Unknown [id number] 2.16.840.1.181507.3.579.2.1244 1949 Unknown [id number] 2.16.840.1.316342.3.579.2.1259 1949 Unknown [id number] 2.16.840.1.875501.3.579.2.1259 1949 Unknown [id number] 2.16.840.1.975542.3.579.2.727 1949 Unknown [id number] 2.16.840.1.653123.3.579.2.727 1949 Unknown [id number] 2.16.840.1.424024.3.579.2.727 1949 Unknown [id number] 2.16.840.1.928421.3.579.2.727 1949 Unknown [id number] 2.16.840.1.686873.3.579.2.727 1949 Unknown [id number] 2.16.840.1.320104.3.579.2.727 1949 Unknown [id number] 2.16.840.1.592916.3.579.2.727 1949 Unknown [id number] 2.16.840.1.125941.3.579.2.727 1949 Unknown [id number] 2.16.840.1.409913.3.579.2.727 1949 Unknown [id number] 2.16.840.1.056048.3.579.2 1949 Unknown [id number] 2.16.840.1.538203.3.579.2 1949 Unknown [id number] 2.16.840.1.500332.3.579.2 1949 Unknown [id number] 2.16.840.1.245788.3.579. 1949 Unknown [id number] 2.16.840.1.031347.3.579.2 1949 Unknown [id number] 2.16.840.1.349568.3.579. 1949 Unknown [id number] 2.16.840.1.425566.3.579. 1949 Unknown [id number] 2.16.840.1.975836.3.579. 1949 Unknown [id number] 2.16.840.1.774748.3.579. 1949 Unknown [id number] 2.16.840.1.242636.3.579. 1949 Unknown [id number] 2.16.840.1.773174.3.579.2 1949 Unknown [id number] 2.16.840.1.828759.3.579.2 1949 Unknown [id number] 2.16.840.1.536173.3.579.2 1949 Unknown [id number] 2.16.840.1.622320.3.579.2 1949 Unknown [id number] 2.16.840.1.024797.3.579.2 1949 Unknown [id number] 2.16.840.1.550873.3.579.2 1949 Unknown [id number] 2.16.840.1.080348.3.579.2.727 1949 Unknown [id number] 2.16.840.1.075898.3.579.2.727 1949 Unknown [id number] 2.16.840.1.001407.3.579.2.727 1949 Unknown [id number] 2.16.840.1.163412.3.579.2.727 1949 Unknown [id number] 2.16.840.1.523212.3.579.2.727 1949 Unknown [id number] 2.16.840.1.621229.3.579.2.727 Unknown [id number] 2.16.840.1.189667.3.579.2.531 Unknown [id number] 2.16.840.1.671826.3.579.2.531 Unknown [id number] 2.16.840.1.533973.3.579.2.531 Unknown [id number] 2.16.840.1.710560.3.579.2.531 Unknown [id number] 2.16.840.1.989632.3.579.2.531 Social History Date Type Detail Facility Start: 02-12-2023 Never a smoker Never a smoker [place] [address] DO Work Phone: Start: 12-10-2020 End: 03-20-2023 Tobacco smoking status Never smoked tobacco (finding) [facility] Comment on above: denies use Tobacco [facility] Comment on above: denies use Start: 02-12-2023 Sex Assigned At Female F [facility] Start: 1950 Sex Assigned At Female F [facility] Start: 02-12-2023 Tobacco use and exposure Smokeless tobacco non-user [facility] Work Phone: Start: 02-12-2023 Alcohol intake Current drinke r of alcohol (finding) [facility] Work Phone: Start: 02-12-2023 Alcohol Comment social [facility] Work Phone: Start: 1950 Sex Assigned At Not on file [facility] Work Phone: Start: 02-02-2023 End: 02-12-2023 Exposure to SARS-CoV-2 (event) Not sure [facility] Medical Equipment Procedure Code Equipment Code Equipment [...] 11, Dx: E11.9 Directions: BID, [id number], Supply, 165, cm, 06/11/22 9:10:00 EDT, Height/Length Dosing, 97.6, kg, 06/11/22 9:10:00 EDT, Weight Dosing Start: 06-13-2022 Lancets, See Instructions, 100 EA, 11, Dx: E11.9 Directions: BID, [facility], Supply, 166, cm, 05/10/21 8:27:00 EST, Height/Length Dosing, 92.8, kg, 05/10/21 8:27:00 EST, Weight Dosing Start: 05-10-2021 Test strips, See Instructions, 100 EA, 11, Dx: E11.9 Directions: BID, [id number], Supply, 165, cm, 06/11/22 9:10:00 EDT, Height/Length Dosing, 97.6, kg, 06/11/22 9:10:00 EDT, Weight Dosing Start: 06-13-2022 CL CLOSURE DEVIC E EXOSEAL 6F FDA Start: 08-11-2018 CL STENT JIE 2.5 X 08 FDA Start: 08-11-2018 Multiple periphe ral artery stent, bare-metal ([id number] FDA Start: 04-07-2022 Lancets, See Instructions, 100 EA, 11, Dx: E11.9 Directions: BID, [facility], Supply, 166, cm, 05/10/21 8:27:00 EST, Height/Length Dosing, 92.8, kg, 05/10/21 8:27:00 EST, Weight Dosing Start: 05-10-2021 Test strips, See Instructions, 100 EA, 11, Dx: E11.9 Directions: BID, [facility][id number], Supply, 165, cm, 06/11/22 9:10:00 EDT, Height/Length Dosing, 97.6, kg, 06/11/22 9:10:00 EDT, Weight Dosing Start: 06-13-2022 Lancets, See Instructions, 100 EA, 11, Dx: E11.9 Directions: BID, [facility], Supply, 166, cm, 05/10/21 8:27:00 EST, Height/Length Dosing, 92.8, kg, 05/10/21 8:27:00 EST, Weight Dosing Start: 05-10-2021 Test strips, See Instructions, 100 EA, 11, Dx: E11.9 Directions: BID, [facility] #[id number], Supply, 165, cm, 06/11/22 9:10:00 EDT, Height/Length Dosing, 97.6, kg, 06/11/22 9:10:00 EDT, Weight Dosing Start: 06-13-2022 Lancets, See Instructions, 100 EA, 11, Dx: E11.9 Directions: BID, [facility], Supply, 166, cm, 05/10/21 8:27:00 EST, Height/Length Dosing, 92.8, kg, 05/10/21 8:27:00 EST, Weight Dosing Start: 05-10-2021 Test strips, See Instructions, 100 EA, 11, Dx: E11.9 Directions: BID, [facility][id number], Supply, 165, cm, 06/11/22 9:10:00 EDT, Height/Length Dosing, 97.6, kg, 06/11/22 9:10:00 EDT, Weight Dosing Start: 06-13-2022 Lancets, See Instructions, 100 EA, 11, Dx: E11.9 Directions: BID, [facility], Supply, 166, cm, 05/10/21 8:27:00 EST, Height/Length Dosing, 92.8, kg, 05/10/21 8:27:00 EST, Weight Dosing Start: 05-10-2021 Test strips, See Instructions, 100 EA, 11, Dx: E11.9 Directions: BID, [facility] #[id number], Supply, 165, cm, 06/11/22 9:10:00 EDT, Height/Length Dosing, 97.6, kg, 06/11/22 9:10:00 EDT, Weight Dosing Start: 06-13-2022 Lancets, See Instructions, 100 EA, 11, Dx: E11.9 Directions: BID, [facility], Supply, 166, cm, 05/10/21 8:27:00 EST, Height/Length Dosing, 92.8, kg, 05/10/21 8:27:00 EST, Weight Dosing Start: 05-10-2021 Test strips, See Instructions, 100 EA, 11, Dx: E11.9 Directions: BID, [facility] #[id number], Supply, 165, cm, 06/11/22 9:10:00 EDT, Height/Length Dosing, 97.6, kg, 06/11/22 9:10:00 EDT, Weight Dosing Start: 06-13-2022 Lancets, See Instructions, 100 EA, 11, Dx: E11.9 Directions: BID, [facility], Supply, 166, cm, 05/10/21 8:27:00 EST, Height/Length Dosing, 92.8, kg, 05/10/21 8:27:00 EST, Weight Dosing Start: 05-10-2021 Test strips, See Instructions, 100 EA, 11, Dx: E11.9 Directions: BID, [facility][id number], Supply, 165, cm, 06/11/22 9:10:00 EDT, Height/Length Dosing, 97.6, kg, 06/11/22 9:10:00 EDT, Weight Dosing Start: 06-13-2022 Lancets, See Instructions, 100 EA, 11, Dx: E11.9 Directions: BID, [facility], Supply, 166, cm, 05/10/21 8:27:00 EST, Height/Length Dosing, 92.8, kg, 05/10/21 8:27:00 EST, Weight Dosing Start: 02-25-2022 Test strips, See Instructions, 100 EA, 11, Dx: E11.9 Directions: BID, [facility][id number], Supply, 165, cm, 06/11/22 9:10:00 EDT, Height/Length Dosing, 97.6, kg, 06/11/22 9:10:00 EDT, Weight Dosing Start: 06-13-2022 Lancets, See Instructions, 100 EA, 11, Dx: E11.9 Directions: BID, [facility], Supply, 166, cm, 05/10/21 8:27:00 EST, Height/Length Dosing, 92.8, kg, 05/10/21 8:27:00 EST, Weight Dosing Start: 05-10-2021 Test strips, See Instructions, 100 EA, 11, Dx: E11.9 Directions: BID, [facility] #[id number], Supply, 165, cm, 06/11/22 9:10:00 EDT, Height/Length Dosing, 97.6, kg, 06/11/22 9:10:00 EDT, Weight Dosing Start: 06-13-2022 Lancets, See Instructions, 100 EA, 11, Dx: E11.9 Directions: BID, [facility], Supply, 166, cm, 05/10/21 8:27:00 EST, Height/Length Dosing, 92.8, kg, 05/10/21 8:27:00 EST, Weight Dosing Start: 05-10-2021 Test strips, See Instructions, 100 EA, 11, Dx: E11.9 Directions: BID, [facility][id number], Supply, 165, cm, 06/11/22 9:10:00 EDT, Height/Length Dosing, 97.6, kg, 06/11/22 9:10:00 EDT, Weight Dosing Start: 06-13-2022 Lancets, See Instructions, 100 EA, 11, Dx: E11.9 Directions: BID, [facility], Supply, 166, cm, 05/10/21 8:27:00 EST, Height/Length Dosing, 92.8, kg, 05/10/21 8:27:00 EST, Weight Dosing Start: 05-10-2021 Test strips, See Instructions, 100 EA, 11, Dx: E11.9 Directions: BID, [facility][id number], Supply, 165, cm, 06/11/22 9:10:00 EDT, Height/Length Dosing, 97.6, kg, 06/11/22 9:10:00 EDT, Weight Dosing Start: 06-13-2022 Lancets, See Instructions, 100 EA, 11, Dx: E11.9 Directions: BID, [facility], Supply, 166, cm, 05/10/21 8:27:00 EST, Height/Length Dosing, 92.8, kg, 05/10/21 8:27:00 EST, Weight Dosing Start: 05-10-2021 Test strips, See Instructions, 100 EA, 11, Dx: E11.9 Directions: BID, [facility][id number], Supply, 165, cm, 06/11/22 9:10:00 EDT, Height/Length [...] 11, Dx: E11.9 Directions: BID, [facility] #[id number], Supply, 165, cm, 06/11/22 9:10:00 EDT, Height/Length Dosing, 97.6, kg, 06/11/22 9:10:00 EDT, Weight Dosing Start: 06-13-2022 Lancets, See Instructions, 100 EA, 11, Dx: E11.9 Directions: BID, [facility], Supply, 166, cm, 05/10/21 8:27:00 EST, Height/Length Dosing, 92.8, kg, 05/10/21 8:27:00 EST, Weight Dosing Start: 05-10-2021 Test strips, See Instructions, 100 EA, 11, Dx: E11.9 Directions: BID, [facility][id number], Supply, 165, cm, 06/11/22 9:10:00 EDT, Height/Length Dosing, 97.6, kg, 06/11/22 9:10:00 EDT, Weight Dosing Start: 06-13-2022 Lancets, See Instructions, 100 EA, 11, Dx: E11.9 Directions: BID, [facility], Supply, 166, cm, 05/10/21 8:27:00 EST, Height/Length Dosing, 92.8, kg, 05/10/21 8:27:00 EST, Weight Dosing Start: 05-10-2021 Test strips, See Instructions, 100 EA, 11, Dx: E11.9 Directions: BID, [facility][id number], Supply, 165, cm, 06/11/22 9:10:00 EDT, Height/Length Dosing, 97.6, kg, 06/11/22 9:10:00 EDT, Weight Dosing Start: 06-13-2022 Lancets, See Instructions, 100 EA, 11, Dx: E11.9 Directions: BID, [facility], Supply, 166, cm, 05/10/21 8:27:00 EST, Height/Length Dosing, 92.8, kg, 05/10/21 8:27:00 EST, Weight Dosing Start: 05-10-2021 Test strips, See Instructions, 100 EA, 11, Dx: E11.9 Directions: BID, [facility][id number], Supply, 165, cm, 06/11/22 9:10:00 EDT, Height/Length Dosing, 97.6, kg, 06/11/22 9:10:00 EDT, Weight Dosing Start: 06-13-2022 Functional Status Date Assessment Result Facility 03-20-2023 Functional Status N/A [facility] 03-04-2023 Functional Status N/A [facility] 02-16-2023 Functional Status N/A [facility] 01-26-2023 Functional Status N/A [facility] 01-06-2023 Functional Status N/A [facility] 09-10-2022 Functional Status N/A [facility] 06-11-2022 Functional Status N/A [facility] 04-07-2022 Functional status Patient at Baseline [facility] Work Phone: 11-28-2021 N/A [facility] 10-28-2021 No [facility] Mental Status Date Assessment Result Facility 04-07-2022 Cognitive function Cognitive Sta tus Patient at Baseline [facility] Work Phone: Clinical Notes 01-27-2022 to [...] plan? Your health care provider or certified wellness program manager can help you make a plan for [...] (heat stroke). Where to find more information [place] Diabetes Association: www.diabetes.org Summary Exercising regularly is important for overall health, especially for people who have diabetes mellitus. Exercising has many health benefits. It increases muscle strength and bone density and reduces body fat and stress. It also lowers and controls blood glucose. Your health care provider or certified wellness program manager can help you make an activity plan [...] provider. Document Revised: 11/28/2019 Document Reviewed: 11/28/2019 [facility] Patient Education 2022 Growing [employer]. Follow Up Care 12/18/2022 08:59:12 With:Christopher WELLS DO, FAAFP, FAM, PED Address: [address] [place], [place] [address]dict [facility] [place] [address]- When:Within 4 Month(s) [facility] 03-04-2023 Evaluation + Plan [...] 09:00:00 AM Scheduled Provider:Christopher WELLS DO, FAAFP Location:[facility] Appointment Type:FM Open Appointment Date:03/23/2023 08:30:00 AM Scheduled Provider:Mara Pastor PA-C Location:[facility] Appointment Type:Pain Management - Follow Up (FT) Appointment Date:02/01/2024 08:00:00 AM Scheduled Provider: Location:[facility] Appointment Type: Medicare Wellness Subsequent Future Scheduled Tests Laboratory* HgbA1c 03/27/22 * HgbA1c 06/25/22 * HCV Antibody RFX to Quant PCR 01/26/23 [facility]12-20-2023 Note [id number] NoteDiagnosis: M16.12, left hip pain/osteoarthritis [...] procedure, and agrees to continue currently prescribed/recommended therapies.[facility] Comment on above:Result Comment: Electronically Signed By: Nicola Tapia DO.maria teresa\Date and Time Signed: 03/04/23 09:06 [id number] Evaluation note* Encounter Date Diagnosis Assessment Notes [...] sooner should she deteriorate in any way [employer] Other [id number] History of Present illness Narrative* Fariha Guidry [...] I suggested that she discuss with her pathology laboratory aides teacher the addition of [id number] or GLP agonists. Reviewed with the patient [...] complications. 5. Diabetes, managed by endocrinology in [place]. A1c remains above target, advised patient to discuss with the pathology laboratory aides teacher more aggressive therapy. 6. Hypertension completely under control. 7. High-risk medication with Xarelto, so far well-tolerated. Takes baby aspirin twice weekly 8. Stage III chronic kidney disease to be monitored closely, she follow with nephrology 9. intermittent claudications and PAD followed by vascular surgery in [place]. Patient is scheduled next week to have revascularization for intermittent claudication 10. Sleep apnea not consistently using CPAP machine. Encouraged the patient to utilize it daily. Fariha Guidry MD, [facility] Review of Systems All other systems [...] tablet, Rfl: 3 Assessment/Plan 1. Atherosclerosis of [place] coronary artery of [place] heart without angina pectoris Follow Up In Cardiology atorvastatin (Lipitor) 40 mg tablet Alanine Aminotransferase Aspartate Aminotransferase Lipid Panel 2. Status post coronary angioplasty Follow Up In Cardiology 3. Essential hypertension Follow Up In Cardiology 4. Hyperlipidemia, unspecified hyperlipidemia type atorvastatin (Lipitor) 40 mg tablet Alanine Aminotransferase Aspartate Aminotransferase Lipid Panel 5. PVD (peripheral vascular disease) ([facility]) 6. Stage 3 chronic kidney disease, unspecified whether stage 3a or 3b CKD ([facility]) 7. Sleep apnea, unspecified type [facility] Work Phone: [phone]) 414-349111-30-2023 Instructions* Patient Instructions* Saloni Benavides LPN - [...] Follow up 6 months [facility] Work Phone: [phone]) 496-789411-13-2023 Hospital Discharge instructions Patient Education 01/26/2023 09:01:27 [...] Carrots. Green beans. Tomatoes. Peppers. Onions. Cucumbers. [place] sprouts. Grains Whole grains, such as whole-wheat [...] meet with a certified diabetes care and educational psychologist? Do I need to meet with a dietitian? What number can I call if I have questions? When are the best times to check my blood glucose? Where to find more information: [place] Diabetes Association: diabetes.org Academy of Nutrition and Dietetics: eatright.org National [place] of Diabetes and Digestive and Kidney [...] provider. Document Revised: 10/03/2020 Document Reviewed: 10/03/2020 [facility] Patient Education 2022 Growing [employer]. 01/26/2023 09:01:11 Fall Prevention in the Home, Adult, Szdr-gw-Rgoc Fall Prevention in the Home, Adult Falls [...] Keep items that you use often in rdfj-ao-yvdkq places. Lower the shelves around your home [...] of the way. Do not use floor omani or wax that makes floors slippery. What [...] for Disease Control and PreventionKELLEY: www.cdc.gov National [place] on Aging: www.[place].nih.gov Contact a doctor [...] provider. Document Revised: 12/02/2021 Document Reviewed: 10/03/2020 [facility] Patient Education 2022 [employer]. 01/26/2023 09:01:04 Hepatitis C, Rjal-qn-Fxjz Hepatitis C Hepatitis C is a liver [...] organ donations that were done in the [place] before 1991. What increases the risk? [...] Follow these instructions at home: Medicines Take wwme-ouu-ptqhmin and prescription medicines only as told by your doctor. If you were given an antiviral medicine, take it as told by your doctor. Do not stop using the antiviral even if you start to feel better. Do not take any new medicines unless your doctor says that this is okay. This includes kcxh-rnl-rporqwe medicines and supplements. Activity Rest as needed. [...] not have soap and water, use hand lost charge card clerk. Cover any cuts or open sores on [...] provider. Document Revised: 01/17/2021 Document Reviewed: 01/17/2021 [facility] Patient Education 2022 [employer]. 01/26/2023 09:00:41 Exercising to Lose Weight Exercising [...] your health care provider or diet and nutrition assistant (dietitian). This may include: ?Eating fewer calories. [...] provider. Document Revised: 04/28/2021 Document Reviewed: 04/28/2021 [facility] Patient Education 2022 [employer]. 01/26/2023 09:00:38 Cooking With Less Salt Cooking [...] salt. Use sodium-free baking soda when baking. [place], braise, or roast foods to add flavor with less salt. Avoid adding salt to pasta, rice, or hot cereals. Drain and rinse canned vegetables, beans, and meat before use. Avoid adding salt when cooking sweets and desserts. Cook with low-sodium ingredients. What foods are high in sodium? Vegetables Regular canned vegetables (not low-sodium or reduced-sodium). Sauerkraut, pickled vegetables, and relishes. Olives. Armenian fries. Onion rings. Regular canned tomato sauce [...] Soy milk. Yogurt. Low-sodium cheeses, such as Iraqi, [place], mozzarella, and ricotta. Sherbet or ice [...] foods you can pair it with. Herbs [place] leaves Soups, meat and vegetable dishes, and spaghetti sauce. Basil [place] Citizen dishes, soups, pasta, and fish dishes. Cilantro Meat, poultry, and vegetable dishes. [place] powder Marinades and Azerbaijani dishes. Chives Salad dressings and potato dishes. Cumin Azerbaijani dishes, couscous, and meat dishes. Dill Fish dishes, sauces, and salads. Fennel Meat and vegetable dishes, breads, and cookies. Garlic (do not use garlic salt) [place] Citizen dishes, meat dishes, salad dressings, and sauces. Marjoram Soups, potato dishes, and meat dishes. Oregano Pizza and spaghetti sauce. Parsley Salads, soups, pasta, and meat dishes. Vanita [place] Citizen dishes, salad dressings, soups, and red meats. [...] provider. Document Revised: 02/22/2020 Document Reviewed: 02/22/2020 [facility] Patient Education 2022 [employer]. 01/26/2023 09:00:36 BMI for Adults BMI for [...] numbers. This can be done either in [place] ([place] or metric measurements. Note that charts and online BMI calculators are available to help you find your BMI quickly and easily without having to do these calculations yourself. To calculate your BMI in [place] ([place] measurements: 1.Measure your weight in pounds [...] Centers for Disease Control and Prevention: www.cdc.gov [place] Heart Association: www.heart.org National Heart, Lung, and Blood [place]: www.nhlbi.nih.gov Summary Body mass index (BMI) is a number that is calculated from a person's weight and height. BMI may help estimate how much of a person's weight is composed of fat. BMI can help identify thosewho may be at higher risk for certain medical problems. BMI can be measured using [place]ian measurements or metric measurements. BMI charts are used to identify whether you are underweight, normal weight, overweight, or obese. This information is not intended to replace advice given to you by your health care provider. Make sure you discuss any questions you have with your health care provider. Document Revised: 11/23/2019 Document Reviewed: 09/30/2019 [facility] Patient Education 2022 Growing [employer]. [facility] 10-24-2023 Evaluation + Plan [...] Appointments Appointment Date:01/26/2023 08:00:00 AM Scheduled Provider: Location:[facility] Appointment Type: Medicare Wellness Subsequent Appointment Date:03/12/2023 08:00:00 AM Scheduled Provider:Linda Solorio CNP Location:[facility] Appointment Type:BADH Follow Up Appointment Date:03/20/2023 09:00:00 AM Scheduled Provider:Christopher WELLS DO, FAAFP Location:[facility] Appointment Type: Open Future Scheduled Tests Laboratory* HgbA1c 03/27/22 * HgbA1c 06/25/22 [facility]10-23-2023 Evaluation note* Encounter Date Diagnosis Assessment Notes [...] understands and is agreement with that plan. [facility] Other 10-11-2023 NoteMicrobiology PROCEDURE: Wound Culture [R1] [...] Locations R1: This test was performed at: [facility], [address] [place] [address], [id number] , [place], CdiwgzL[facility]Comment on above:Performed By: #### [id number] #### [facility] [address] [place] [address] [id number] Evaluation note* Encounter Date Diagnosis Assessment Notes [...] to see her back in 2 months. [facility] Other 08-21-2023 Evaluation note* Encounter Date Diagnosis [...] call us with any issues or concerns. [facility] Other 06-28-2023 Hospital Discharge instructions Patient Education [...] oral rehydration solution (ORS). This is an hcys-gem-mwcydky medicine that helps return your body to [...] drinks, sports drinks, and soda. Eat bland, wfmy-au-tcqhpc foods in small amounts as you are able. These foods include bananas, applesauce, rice, lean meats, toast, and crackers. Avoid alcohol. Avoid spicy or fatty foods. Medicines Take ycch-nnm-opwrmsp and prescription medicines only as told by your health care provider. If you were prescribed an antibiotic medicine, take it as told by your health care provider. Do notstop using the antibiotic even if you start to feel better. General instructions Wash your hands often using soap and water. If soap and water are not available, use a hand lost charge card clerk. Others in the household should wash their [...] soap and water are not available, usehand lost charge card clerk. Contact a health care provider if your diarrhea gets worse or you have new symptoms. Get help right away if you have signs of dehydration. This information is not intended to replace advice given to you by your health care provider. Make sure you discuss any questions you have with your health care provider. Document Revised: 09/11/2021 Document Reviewed: 09/11/2021 [facility] Patient Education 2022 [employer] Stars. 09/10/2022 07:52:51 High-Fiber Eating Plan High-Fiber Eating [...] Bulgur wheat. Millet. Quinoa. Bran muffins. Popcorn. [place] wafer crackers. Meats and other proteins [place] beans, kidney beans, and chase beans. Soybeans. [...] Cream cheese. Sour cream. Fats and oils [place]. Beverages Soft drinks. Other foods Cakes and [...] provider. Document Revised: 07/05/2020 Document Reviewed: 07/05/2020 [facility] Patient Education 2022 [employer] Stars. Follow Up Care 06/11/2022 09:32:08 With:Linda Solorio CNP Address: When:6 months [facility] 03-29-2023 Hospital Discharge instructions [...] per serving. Talk with a diet and nutrition assistant (dietitian) if you have questions about specific [...] Bulgur wheat. Millet. Quinoa. Bran muffins. Popcorn. [place] wafer crackers. Meats and other proteins [place], kidney, and chase beans. Soybeans. Split peas. [...] Cream cheese. Sour cream. Fats and oils [place]. Beverages Soft drinks. Other foods Cakes and [...] 03/02/2006 Document Revised: 01/04/2018 Document Reviewed: 01/04/2018 [facility] Patient Education 2020 Growing Stars. 06/11/2022 09:15:20 Hemorrhoids Hemorrhoids Hemorrhoids are swollen [...] 3 times a day. General instructions Take anhe-soy-abiukaj and prescription medicines only as told by [...] 02/27/2001 Document Revised: 07/29/2019 Document Reviewed: 07/22/2018 [facility] Patient Education 2020 Growing Stars. 06/11/2022 09:15:19 Colon Polyps Colon Polyps Polyps [...] 11/26/2004 Document Revised: 06/17/2018 Document Reviewed: 06/17/2018 [facility] Patient Education [place]. Follow Up Care 06/09/2022 16:22:13 With:Linda Solorio CNP Address: When:3 months [facility] 03-09-2023 Note [id number]:127[facility] 05-05-2022 Evaluation note* Encounter Date Diagnosis Assessment Notes Treatment Notes Treatment Clinical Notes Apr, Peripheral vascular disease, unspecified (ICD-10 - I73.9) Apr, Other specified postprocedural states (ICD-10 - Z98.890) Apr, Other Peripheral arterial occlusive disease She has a good clinical outcome. I will see her back in 6 months with ABIs on that day. She will continue her current medical regimen. [facility] Other 01-24-2023 Evaluation note* Encounter Date Diagnosis Assessment Notes Treatment Notes Treatment Clinical Notes Mar, Post-op pain (ICD-10 - G89.18) [facility] Other 01-16-2023 Evaluation + Plan note Diagnostic Tests Pending * PTH Intact 03/31/22 * Immunofixation Serum 03/31/22 * Immunofixation, Urine 03/31/22 * C3 Complement 03/31/22 * C4 Complement 03/31/22 * Free K+L Lt Chains,Qn,S 03/31/22 Future Scheduled Tests Laboratory* HgbA1c 03/27/22 * HgbA1c 06/25/22 [facility]01-16-2023 Evaluation note* Encounter Date Diagnosis Assessment Notes [...] of both lower extremities (ICD-10 - I73.9) [facility] Other 01-12-2023 Evaluation + Plan note Future Scheduled Tests Laboratory* HgbA1c 03/27/22 * HgbA1c 06/25/22 [facility]11-14-2022 Evaluation note* Encounter Date Diagnosis Assessment Notes [...] in 2 months time with the ABIs. [facility] Other Evaluation + Plan note Future Appointments Appointment Date:08/27/2021 09:30:00 AM Scheduled Provider: Location:.DIETARY Appointment Type:DM Diabetes Initial hedis nurse 59 (F Appointment Date:10/16/2021 01:00:00 PM Scheduled Provider: [facility] Diabetes Group () [facility] Evaluation + Plan note Future Appointments Appointment Date:10/15/2021 09:00:00 AM Scheduled Provider: Location:.DIETARY Appointment Type:DM Diabetes Group (FT) Appointment Date:10/28/2021 09:45:00 AM Scheduled Provider:Charis Daniel MD Location[facility] Appointment Type:Vascular New Patient (FT) Appointment Date:12/16/2021 09:40:00 AM Scheduled Provider:Christopher WELLS DO, FAAFP Location:[facility] Appointment Type: Open Future Scheduled Tests Laboratory* HgbA1c 12/25/21 * HgbA1c 03/27/22 * HgbA1c 06/25/22 Radiology* US PVR Lower EXT Complete Bilat [facility]21 [facility] Future Appointments Appointment Date:10/15/2021 09:00:00 AM Scheduled Provider: Location:.DIETARY Appointment Type:DM Diabetes Group (FT) Appointment Date:10/28/2021 09:45:00 AM Scheduled Provider:Charis Daniel MD Location[facility] Appointment Type:Vascular New Patient (FT) Appointment Date:12/16/2021 09:40:00 AM Scheduled Provider:Christopher WELLS DO, FAAFP Location:[facility] Appointment Type:FM Open Future Scheduled Tests Laboratory* HgbA1c 12/25/21 * HgbA1c 03/27/22 * HgbA1c 06/25/22 [facility] Future Appointments Appointment Date:12/16/2021 09:40:00 AM Scheduled Provider:Christopher WELLS DO, FAAFP Location:[facility] Appointment Type:FM Open Appointment Date:01/02/2022 01:00:00 PM Scheduled Provider: [facility] Type:DM Diabetes Group (FT) Future Scheduled Tests Laboratory* HgbA1c 12/25/21 * HgbA1c 03/27/22 * HgbA1c 06/25/22 Radiology* US LE Venous Duplex Insufficiency Bilat 10/28/21 * CTA Abd Aorto-bilat/ iliofemoral runoff 10/28/21 [facility] Future Appointments Appointment Date:12/16/2021 09:40:00 AM Scheduled Provider:Christopher WELLS DO, FAAFP Location:[facility] Appointment Type:FM Open Appointment Date:01/02/2022 01:00:00 PM Scheduled Provider: [facility] Type:DM Diabetes Group (FT) Appointment Date:02/24/2022 09:00:00 AM Scheduled Provider:Charis Daniel MD Location[facility] Appointment Type:Vascular Follow Up (FT) Future Scheduled Tests Laboratory* HgbA1c 12/25/21 * HgbA1c 03/27/22 * HgbA1c 06/25/22 [facility] Future Appointments Appointment Date:02/24/2022 09:00:00 AM Scheduled Provider:Charis Daniel MD Location[facility] Appointment Type:Vascular Follow Up (FT) Future Scheduled Tests Laboratory* HgbA1c 12/25/21 * HgbA1c 03/27/22 * HgbA1c 06/25/22 [facility] Future Appointments Appointment Date:02/24/2022 09:00:00 AM Scheduled Provider:Charis Daniel MD Location[facility] Appointment Type:Vascular Follow Up (FT) Future Scheduled Tests Laboratory* HgbA1c 03/27/22 * HgbA1c 06/25/22 [facility] Future Appointments Appointment Date:05/21/2022 01:05:00 PM Scheduled Provider: Location:[facility] Appointment Type:Surgery FT Diagnostic Tests Pending * O & P Exam, Routine 05/08/22 * Giardia lamblia, Direct Detection EIA 05/08/22 Future Scheduled Tests Laboratory* HgbA1c 03/27/22 * HgbA1c 06/25/22 [facility] Future Appointments Appointment Date:09/10/2022 08:00:00 AM Scheduled Provider:Linda Solorio CNP Location:[facility] Appointment Type:BADH Follow Up Future Scheduled Tests Laboratory* HgbA1c 03/27/22 * HgbA1c 06/25/22 [facility] Evaluation + Plan note Future Appointments Appointment Date:03/12/2023 08:00:00 AM Scheduled Provider:Linda Solorio CNP Location:[facility] Appointment Type:BAD Follow Up Future Scheduled Tests Laboratory* HgbA1c 03/27/22 * HgbA1c 06/25/22 [facility] Evaluation + Plan note Future Appointments Appointment Date:12/18/2022 08:20:00 AM Scheduled Provider:Christopher WELLS DO, FAAFP [facility] Type[facility]FM Open Appointment Date:01/26/2023 08:00:00 AM Scheduled Provider: Location:[facility] Appointment Type:FM Medicare Wellness Subsequent Appointment Date:03/12/2023 08:00:00 AM Scheduled Provider:Linda Solorio CNP Location:[facility] Appointment Type:BADH Follow Up Future Scheduled Tests Laboratory* HgbA1c 03/27/22 * HgbA1c 06/25/22 [facility] Future Appointments Appointment Date:01/06/2023 08:30:00 AM Scheduled Provider:Gary Cerda MD Location:[facility] Appointment Type:Pain Management - New (FT) Appointment Date:01/26/2023 08:00:00 AM Scheduled Provider: Location:[facility] Appointment Type:FM Medicare Wellness Subsequent Appointment Date:03/12/2023 08:00:00 AM Scheduled Provider:Linda Solorio CNP Location:[facility] Appointment Type:BAD Follow Up Appointment Date:03/20/2023 09:00:00 AM Scheduled Provider:Christopher WELLS DO, FAAFP Location:[facility] Appointment Type:FM Open Future Scheduled Tests Laboratory* HgbA1c 03/27/22 * HgbA1c 06/25/22 [facility] Future Appointments Appointment Date:01/19/2023 09:30:00 AM Scheduled Provider: [facility] Type:WC Assessment (FT) Appointment Date:01/26/2023 08:00:00 AM Scheduled Provider: Location:[facility] Appointment Type:FM Medicare Wellness Subsequent Appointment Date:01/27/2023 02:00:00 PM Scheduled Provider:Denton Castro DPM [facility] Appointment Type:WC Follow Up Visit (FT) Appointment Date:02/02/2023 09:45:00 AM Scheduled Provider: Location:[facility] Appointment Type:Surgery FT Appointment Date:02/17/2023 08:45:00 AM Scheduled Provider:Gary Cerda MD Location:[facility] Appointment Type:Pain Management - Follow Up (FT) Appointment Date:03/12/2023 08:00:00 AM Scheduled Provider:Linda Solorio CNP Location:[facility] Appointment Type:BAD Follow Up Appointment Date:03/20/2023 09:00:00 AM Scheduled Provider:Christopher WELLS DO, FAAFP Location:[facility] Appointment Type:FM Open Future Scheduled Tests Laboratory* HgbA1c 03/27/22 * HgbA1c 06/25/22 [facility] Future Appointments Appointment Date:01/26/2023 08:00:00 AM Scheduled Provider: Location:[facility] Appointment Type:FM Medicare Wellness Subsequent Appointment Date:01/27/2023 02:00:00 PM Scheduled Provider:Denton Castro DPM [facility] Appointment Type:WC Follow Up Visit (FT) Appointment Date:02/02/2023 09:45:00 AM Scheduled Provider: Location:[facility] Appointment Type:Surgery FT Appointment Date:02/17/2023 08:45:00 AM Scheduled Provider:Gary Cerda MD Location:[facility] Appointment Type:Pain Management - Follow Up (FT) Appointment Date:03/12/2023 08:00:00 AM Scheduled Provider:Linda Solorio CNP Location:[facility] Appointment Type:BAD Follow Up Appointment Date:03/20/2023 09:00:00 AM Scheduled Provider:Christopher WELLS DO, FAAFP Location:[facility] Appointment Type:FM Open Future Scheduled Tests Laboratory* HgbA1c 03/27/22 * HgbA1c 06/25/22 [facility] Future Appointments Appointment Date:01/27/2023 02:00:00 PM Scheduled Provider:Denton Castro DPM [facility] Appointment Type:WC Follow Up Visit (FT) Appointment Date:02/02/2023 09:45:00 AM Scheduled Provider: Location:[facility] Appointment Type:Surgery FT Appointment Date:02/17/2023 08:45:00 AM Scheduled Provider:Gary Cerda MD [facility] Appointment Type:Pain Management - Follow Up (FT) Appointment Date:03/12/2023 08:00:00 AM Scheduled Provider:Linda Solorio CNP Location:[facility] Appointment Type:BAD Follow Up Appointment Date:03/20/2023 09:00:00 AM Scheduled Provider:Christopher WELLS DO, FAAFP Location:[facility] Appointment Type:FM Open Appointment Date:02/01/2024 08:00:00 AM Scheduled Provider: Location:[facility] Appointment Type:FM Medicare Wellness Subsequent Future Scheduled Tests Laboratory* HgbA1c 03/27/22 * HgbA1c 06/25/22 * HCV Antibody RFX to Quant PCR 01/26/23 [facility] Evaluation + Plan note Future Appointments Appointment Date:02/02/2023 09:45:00 AM Scheduled Provider: Location:[facility] Appointment Type:Surgery FT Appointment Date:02/10/2023 02:30:00 PM Scheduled Provider:Denton Castro DPM [facility] Appointment Type:WC Follow Up Visit (FT) Appointment Date:02/17/2023 08:45:00 AM Scheduled Provider:Gary Cerda MD Location:[facility] Appointment Type:Pain Management - Follow Up (FT) Appointment Date:03/12/2023 08:00:00 AM Scheduled Provider:Linda Solorio CNP Location:[facility] Appointment Type:BADH Follow Up Appointment Date:03/20/2023 09:00:00 AM Scheduled Provider:Christopher WELLS DO, FAAFP Location:[facility] Appointment Type:FM Open Appointment Date:02/01/2024 08:00:00 AM Scheduled Provider: Location:[facility] Appointment Type:FM Medicare Wellness Subsequent Future Scheduled Tests Laboratory* HgbA1c 03/27/22 * HgbA1c 06/25/22 * HCV Antibody RFX to Quant PCR [facility]26/23 [facility] Future Appointments Appointment Date:02/16/2023 01:45:00 PM Scheduled Provider: [facility] Appoint[facility] Type:WC Assessment (FT) Appointment Date:02/16/2023 02:15:00 PM Scheduled Provider: Location:[facility] Appointment Type:Surgery FT Appointment Date:02/24/2023 02:00:00 PM Scheduled Provider:Denton Castro DPM [facility] Appointment Type:WC Follow Up Visit (FT) Appointment Date:03/02/2023 08:15:00 AM Scheduled Provider:Mara Pastor PA-C Location:[facility] Appointment Type:Pain Management - Follow Up (FT) Appointment Date:03/02/2023 09:40:00 AM Scheduled Provider:Linda Solorio CNP Location:[facility] Digestive [facility] Appointment Type:BAD Follow Up Appointment Date:03/20/2023 09:00:00 AM Scheduled Provider:Christopher WELLS DO, FAAFP Location:[facility] Appointment Type:FM Open Appointment Date:02/01/2024 08:00:00 AM Scheduled Provider: Location:[facility] Appointment Type:FM Medicare Wellness Subsequent Future Scheduled Tests Laboratory* HgbA1c 03/27/22 * HgbA1c 06/25/22 * HCV Antibody RFX to Quant PCR [facility]/26/23 [facility] Future Appointments Appointment Date:02/24/2023 02:00:00 PM Scheduled Provider:Denton Castro DPM [facility] Appointment Type:WC Follow Up Visit (FT) Appointment Date:03/02/2023 09:40:00 AM Scheduled Provider:Linda Solorio CNP Location:[facility] Digestive [facility] Appointment Type:BAD Follow Up Appointment Date:03/04/2023 08:45:00 AM Scheduled Provider: Location:[facility] Appointment Type:Surgery FT Appointment Date:03/20/2023 09:00:00 AM Scheduled Provider:Christopher WELLS DO, FAAFP Location:[facility] Appointment Type: Open Appointment Date:03/23/2023 08:30:00 AM Scheduled Provider:Mara Pastor PA-C Location:[facility] Appointment Type:Pain Management - Follow Up (FT) Appointment Date:02/01/2024 08:00:00 AM Scheduled Provider: Location:[facility] Appointment Type: Medicare Wellness Subsequent Future Scheduled Tests Laboratory* HgbA1c 03/27/22 * HgbA1c 06/25/22 * HCV Antibody RFX to Quant PCR [facility]/26/23 [facility] Future Appointments Appointment Date:03/03/2023 02:30:00 PM Scheduled Provider:Denton Castro DPM [facility] Appointment Type:WC Follow Up Visit (FT) Appointment Date:03/04/2023 08:45:00 AM Scheduled Provider: Location:[facility] Appointment Type:Surgery FT Appointment Date:03/20/2023 09:00:00 AM Scheduled Provider:Christopher WELLS DO, FAAFP Location:[facility] Appointment Type:FM Open Appointment Date:03/23/2023 08:30:00 AM Scheduled Provider:Mara Pastor PA-C [facility] Appointment Type:Pain Management - Follow Up (FT) Appointment Date:02/01/2024 08:00:00 AM Scheduled Provider: Location:[facility] Appointment Type: Medicare Wellness Subsequent Future Scheduled Tests Laboratory* HgbA1c 03/27/22 * HgbA1c 06/25/22 * HCV Antibody RFX to Quant PCR 01/26/23 [facility] Evaluation + Plan note Future Appointments Appointment Date:03/04/2023 08:45:00 AM Scheduled Provider: Location:[facility] Appointment Type:Surgery FT Appointment Date:03/20/2023 09:00:00 AM Scheduled Provider:Christopher WELLS DO, FAAFP Location:[facility] Appointment Type:FM Open Appointment Date:03/23/2023 08:30:00 AM Scheduled Provider:Mara Pastor PA-C [facility] Appointment Type:Pain Management - Follow Up (FT) Appointment Date:02/01/2024 08:00:00 AM Scheduled Provider: Location:[facility] Appointment Type: Medicare Wellness Subsequent Future Scheduled Tests Laboratory* HgbA1c 03/27/22 * HgbA1c 06/25/22 * HCV Antibody RFX to Quant PCR [facility]/23 [facility] Future Appointments Appointment Date:03/23/2023 08:30:00 AM Scheduled Provider:Mara Pastor PA-C [facility] Appointment Type:Pain Management - Follow Up (FT) Appointment Date:07/28/2023 08:00:00 AM Scheduled Provider:Christopher WELLS DO, FAAFP Location:[facility] Appointment Type:FM Open Appointment Date:02/01/2024 08:00:00 AM Scheduled Provider: Location:[facility] Appointment Type: Medicare Wellness Subsequent Future Scheduled Tests Laboratory* HgbA1c 03/27/22 * HgbA1c 06/25/22 * HCV Antibody RFX to Quant PCR 01/26/23 [facility] Evaluation noteNo assessment information available [facility] Work Phone: Evaluation noteNo InformationNort Lumaqco Other Evaluation note* Diagnosis Atherosclerosis of [place] coronary artery of [place] heart without angina pectoris Status post coronary angioplasty Postsurgical percutaneous transluminal coronary angioplasty status Essential hypertension Unspecified essential hypertension Hyperlipidemia, unspecified hyperlipidemia type PVD (peripheral vascular disease) ([facility]) Unspecified peripheral vascular disease Stage 3 chronic kidney disease, unspecified whether stage 3a or 3b CKD ([facility]) Sleep apnea, unspecified type documented in this encounter [facility] Work Phone: History general Narrative - Reported* [...] stent 3 STENTS Hospitalization History see above [facility] Other History general Narrative - Reported* Type [...] LEG ANGIOPLASTY 03/2022 Hospitalization History see above [facility] Other Hospital course Narrative No data available for this section [facility] Hospital Discharge instructions No data available for this section [facility] Progress note No data available for this section [facility] (narrative[facility] Consultation (Routine) - Authorized Specialty Diagnoses / Procedures Referred By Fariha bautista Referred To Contact Cardiology Diagnoses Atherosclerosis of [place] coronary artery of [place] heart without angina pectoris Status post coronary angioplasty Essential hypertension Procedures Follow Up In Cardiology Fariha Guidry MD [address] [facility] [address] [place] [address] Fariha Guidry MD [address] [facility] [address] [place] [address] Referral ID Status Reason Start Date Expiration Date V isits Requested Visits Authorized [id number] Authorized 02/12/2023 02/12/2024 1 1 [facility] Work Phone: Chief Complaint * EVON CORCORAN [...] * 5. Diabetes, managed by endocrinology in [place]. A1c remains above target * 6. Hypertension completely under control. * 7. High-risk medication with Xarelto, so far well-tolerated. Takes baby aspirin twice weekly * 8. Stage III chronic kidney disease to be monitored closely * 9. Recent diagnosis of intermittent claudications and PAD followed by vascular surgery Dr. 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 Relationship Specialty Start Date End Date Christopher Wells DO [address] [place] [facility]- [address] [address] PCP - General 08/02/18 INFORMATION SOURCE (unrecogn ized section and content) DATE CREATED AUTHOR 01/16/2022 [facility] DATE CREATED AUTHOR AUTHOR'S ORGANIZ ATION 01/16/2022 [employer] DATE CREATED AUTHOR AUTHOR'S ORGANIZ ATION 09/19/2022 [facility] DATE CREATED AUTHOR AUTHOR'S ORGANIZ ATION 02/14/2023 [facility] DATE CREATED AUTHOR AUTHOR'S ORGANIZ ATION 02/28/2023 [facility] DATE CREATED AUTHOR AUTHOR'S ORGANIZ ATION 03/19/2023 [facility] EPIC DATE CREATED AUTHOR AUTHOR'S ORGANIZ ATION 03/24/2023 [facility] REASON FOR VISIT (unrecogniz ed [...] BE BASED ON THE PRIMARY CLINICAL RECORDS. [facility]. provides no warranty or guarantee of the accuracy or completeness of information in this document.
== END 2023-04-07 07:42 | disposition home or self-care (01) ==
LOC: VC 07:52
PROVIDERS: PCP Podiatrist Foot & Ankle Surgery; Visit Provider Radiology Diagnostic Radiology
DX: I80.01 Phlebitis and thrombophlebitis of superficial vessels of right lower extremity (principal)
CPT/HCPCS: 93971; G0463

== ENCOUNTER 2023-04-16 07:53 | Outpatient (OUT) | payer MEDICARE, BC, SELFPAY ==
--- NOTE | 2023-04-16 07:58 | VEIN_ITS ---
[address] [address] Patient Name: GEOVANNY CORCORAN MRN: [id number] date: 1950 Sex: F Assigned Patient Location: Current Patient Location: Accession/Order Number: [id number] Exam Date: 04/16/2023 08:01 Report Date: 04/16/2023 08:59 At the request of: AILIN JC Procedure: VC Endovenous Ablation 1VeinLT EXAMINATION: VC Endovenous Ablation 1VeinLT HISTORY: I83.813 Bilateral painful varicose veins The risks and benefits of the procedure had been previously discussed, and were rediscussed at length. Informed written consent was obtained. Ottoniel Mariscal RN and Leanne Mcmillan RDMS, RVT assisted. Time out procedure was performed. The left lower extremity was prepared and draped in the usual sterile fashion to allow knee flexion in the sterile field. Duplex ultrasound probe was draped in a sterile cover, sterile transmission gel was used. Venous mapping was performed with the areas of dilation and large tributaries marked. The total length was 47 cm from the entry approximately 10 cm above the ankle to 3 cm below the Saphenofemoral junction. The diameter of the left great saphenous vein ranged from 7.2 mm. A 30 gauge needle and 1% buffered lidocaine was used to anesthetize the entry site. A 4 mm incision was made with a scalpel and the saphenous vein was entered percutaneously under direct ultrasound guidance with a micropuncture set, a single stick was successful in gaining access. A micro-guide wire was inserted and the needle removed. A micro-set including a dilator was inserted over the microwire and the needle and dilator were removed. A guide wire was inserted through the micro-set and guided through the saphenous vein to the saphenofemoral junction. The dilator was removed and an introducer sheath was inserted over the wire until the end of the sheath entered the saphenofemoral junction. The dilator and wire were removed and the 600 micron fiber was introduced and placed and positioned so that it extended beyond the sheath and was 3 cm distal to the saphenofemoral or saphenopopliteal junction. Final position of the fiber was determined by ultrasound guidance and duplex imaging. Tumescent anesthetic was delivered by ultrasound guidance. 350 cc of fluid was delivered along the entire course of the saphenous vein. The solution consisted of 1000 cc of normal saline with 40 mL of 1% lidocaine and 20 mL of sodium bicarbonate. A final positioning check was made. The energy source was turned on by means of the foot pedal and the fiber and sheath were withdrawn. The total number of Joules delivered was 2628. The laser was active for [328 seconds under continuous pulse, average laser use of 8 J. Laser start time 8:45 AM, 04/16/2023. Laser stop time 8:52 AM, 04/16/2023. A duplex ultrasound revealed compressibility and flow at the saphenofemoral junction immediately after the procedure. Hemostasis at the access site was achieved. The skin incision of the saphenous vein was closed with a 4 x 4. A compression stocking was applied. Postop instructions were given. A follow up appointment was recommended and scheduled. The patient tolerated the procedure well. Electronically authenticated by: AWA SNYDER Date: 04/16/2023 08:59
--- OUTSIDE RECORDS SUMMARY | 2023-04-16 08:07 | XMS_ITS | CCD ---
Author Name Unknown Address [address] [place] [address] Organization [facility] Care Team Providers Care Rn Neurosurgical Name Role Phone Christopher Wells Unavailable Unavailable [...] Care Provider MD Miguel Membreno Attending Provider [phone] [facility] Attending Provider Christopher Wells DO Primary Care Provider FARIHA GUIDRY Attending Unavailable CHRISTOPHER WELLS Primary Care Unavailable DO Christopher Wells Primary Care Provider MD Miguel Membreno Attending Provider [phone] Russell, Christopher A Primary Care Unavailable Renetta Barahona Attending Unavailable RuttinRenetta torres Admitting Unavailable Kaple, Christopher Montenegro Primary Care [...] Attending Unavailable KAPLE, Christopher Montenegro Attending Unavailable Akkina, Klaus Attending Unavailable Akkina, Klaus Admitting Unavailable Hajdari, Astrit H Attending Unavailable Dolce, Denton Gomez Attending Unavailable Dolce, Denton Gomez Attending Unavailable Dolce, Denton Gomez Attending Unavailable Dolce, Denton Gomez Attending Unavailable Dolce, Denton Gomez Attending Unavailable Dolce, Denton Jason Attending Unavailable Dolce, Denton Jason Referring Unavailable Tampico, Catrachito D Referring Unavailable Tampico, Catrachito Gomez Attending Unavailable Tampico, Catrachito D Admitting Unavailable KAPLE, Christopher A Admitting Unavailable Osmin, Linda A Attending Unavailable KAPLE, Christopher A Referring Unavailable Osmin, Linda A Attending Unavailable Osmin, Linda A Attending Unavailable Osmin, Linda A Attending Unavailable Osmin, Linda A Admitting Unavailable Osmin, Linda A Attending Unavailable Dolce, Denton Jason Attending Unavailable Dolce, Denton Jason Admitting Unavailable Guidry, Fariha Attending Unavailable Guidry, Fariha Admitting Unavailable Mara Pastor Attending Unavailable TAB Pastor Admitting Unavailabl e KAPChristopher BEJARANO Referring Unavailable MD Gary Cerda Admitting Unavailable Gary Cerda Attending Unavailable Tampico, Catrachito D Referring Unavailable KAPLE, Christopher A Attending Unavailable KAPLE, Christopher A Admitting Unavailable KAPLE, Christopher A Referring Unavailable Tampico, Catrachito D Referring Unavailable Tampico, Catrachito D Attending Unavailable Tampico, Catrachito D Admitting Unavailable Osmin, Linda A Attending Unavailable Linda Solorio Admitting Unavailable Denton Mares Attending Unavailable Luis BENSON Attending Unavailable Luis BENSON Admitting Unavailable Luis BENSON Referring Unavailable MD Gary Cerda Admitting Unavailable Gary Cerda Referring Unavailable Gary Cerda Attending Unavailable DO Nicola Tapia Admitting Unavailmarcelle e Nicola Tapia Referring Unavailable Nicola Tapia Attending Unavailable Christopher WELLS Attending Unavailable Christopher WELLS Attending Unavailable Allergies Allergy Classification Reported Allergen(s) Allergy Type Date of Onset Reaction(s) Facility (20 sources) Doxazosin; Translations: [Cardura] Drug Allergy 023 Unknown (qualifier value), Diarrhea [facility] 250 DO Work Phone: (20 sources) hydroCHLOROthiazide; Translations: [hydroCHLOROthiazide CAPS] Drug Allergy 023 Diarrhea [facility] 250 DO Work Phone: (20 sources) hydroCHLOROthiazide / Spironolactone; Translations: [Aldactazide] Drug Allergy 023 Weal (disorder), Diarrhea [facility] 250 DO Work Phone: (20 sources) Lisinopril; Translations: [Zestril] Drug Allergy 023 Diarrhea (finding), Diarrhea [facility] 250 DO Work Phone: (20 sources) metFORMIN; Translations: [Glucophage] Drug Allergy 023 [facility] Work Phone: (20 sources) valsartan; Translations: [Diovan] Drug Allergy 023 Unknown (qualifier value), Diarrhea [facility] 250 DO Work Phone: (20 sources) hydroCHLOROthiazide / Lisinopril; Translations: [hydrochlorothiazide-l isinopril] Drug Allergy Diarrhea (finding) [facility] Primary Care (20 sources) Terazosin; Translations: [terazosin] Drug Allergy Unknown, Unknown Reaction [facility] (9 sources) metFORMIN Drug Allergy Unknown [facility] Other (7 sources) Doxazosin; Translations: [DOXAZOSIN] Drug Allergy Unknown Reaction [facility] (6 sources) hydroCHLOROthiazide; Translations: [HYDROCHLOROTHIAZIDE] Drug Allergy Unknown Reaction, Diarrhea [facility] (6 sources) Lisinopril; Translations: [LISINOPRIL] Drug Allergy Unknown Reaction [facility] (6 sources) metFORMIN; Translations: [METFORMIN] Drug Allergy Unknown Reaction, Diarrhea [facility] (5 sources) pioglitazone; Translations: [pioglitazone] Drug Allergy Unknown Reaction [facility] (5 sources) Spironolactone; Translations: [spironolactone] Drug Allergy Unknown Reaction, Hives [facility] (6 sources) valsartan; Translations: [VALSARTAN] Drug Allergy Unknown Reaction [facility] (1 source) SPIRONOLACTON-HYDROCHL OROTHIAZ; Translations: [SPIRONOLACTON-HYDROCH LOROTHIAZ] Propensity to adverse reactions to drug (disorder) 0[address] [place] [address] Repository (1 source) Terazosin Drug Allergy 023 [facility] Repository (1 source) Lisinopril; Translations: [Prinivil] Drug Allergy [facility] Repository Medications Current Medications Medication Drug Class(es) [...] April 07, 2022 February 18, 2023 9:26am Albuterol (Eqv-ProAir HFA) 90 mcg/inh inhalation aerosol (1 source) Start: 04-10-2023 take 2 puff(s) by inhalation every six hours Albuterol (Eqv-ProAir HFA) 90 mcg/inh inhalation aerosol 2 puff(s), Inhalation, q6hr Wheezing, 8.5 gm, Refill(s) 0, [facility] #[id number], 165, cm, 04/10/23 9:26:00 EST, Height/Length Dosing, 96.9, kg, 04/10/23 9:26:00 EST, Weight Dosing Start Date: 04/10/23 Status: Ordered amLODIPine 5 mg oral tablet (20 sources) [...] Thursday and take 1 tablet by damon th two times weekly aspirin 81 mg EC [...] 90 tab(s), Refills(s) 3, [facility]: [id number], 166, cm, 10/28/21 9:59:00 EDT, Height/Length Dosing, 97.4, kg, 10/28/21 9:59:00 EDT, Weight Dosing Start Date: 10/28/21 Stop Date: 10/23/22 Status: Ordered Start: 04-26-2015 End: 02-12-2023 take 20 mg by mouth once daily in the evening Atorvastatin Active 20 MG PO Every evening August 05, 2018 11:00pm azithromycin 250 mg Tab 5-day Dose Pack (Z-Sanjay) (1 source) Start: 04-10-2023 End: 04-15-2023 azithromycin 250 mg Tab 5-day Dose Pack (Z-Sanjay) = 1 packet(s), Oral, As Directed, as directed on package labeling, X 5 day(s), # 6 tab(s), Refills(s) 0, [facility]: [facility] #[id number], 165, cm, 04/10/23 9:26:00 EST, Height/Length Dosing, 96.9, kg, 04/10/23 9:26:00 EST, Weight Dosing Start Date: 04/10/23 Stop Date: 04/15/23 Status: Ordered Calcium Carbonate (3 sources) oscal 500 + D Active calcium carbonate 1250 mg / cholecalciferol 0.01 mg oral tablet (13 sources) Vitamin D Start: 01-06-2023 take 1 tablet by mouth once daily calcium (as carbonate)-vitamin D 500 mg-400 intl units oral tablet 1 tab(s), Oral, Daily, Refill(s) 0 Start Date: 01/06/23 Status: Ordered chlorthalidone 25 mg oral tablet (20 sources) Thiazide-like Diuretic Start: 08-06-2018 take 1 tablet by mouth at bedtime chlorthalidone 25 mg Tab 25 mg = 1 tab(s), Oral, Bedtime, # 90 tab(s), Refills(s) 1, [facility]: [facility] #[id number], 165, cm, 09/10/22 8:16:00 EDT, Height/Length Dosing, 97.4, kg, 09/10/22 8:16:00 EDT, Weight Dosing Start Date: 10/27/22 Status: Ordered cilostazol 50 mg oral tablet (10 sources) Phosphodiesterase 3 Inhibitor Start: 10-08-2021 take 1 tablet by mouth twice daily Pletal 50 mg oral tablet 50 mg = 1 tab(s), Oral, BID, # 60 tab(s), Refills(s) 5, [facility]: [facility] #[id number], 165, cm, 09/24/21 8:39:00 EDT, Height/Length Dosing, 95.3, kg, 09/24/21 8:39:00 EDT, Weight Dosing Start Date: 10/08/21 Status: Ordered clopidogrel 75 mg oral tablet (1 source) P2Y12 Platelet Inhibitor Start: 10-28-2018 take 1 tablet by mouth once daily Plavix 75 mg Tab 75 mg = 1 tab(s), Oral, Daily, # 30 tab(s), Refills(s) 0 Start Date: 10/28/18 Status: Ordered Co Q 10 (9 sources) Co Q 10 Active Co Q-10 (20 sources) Start: 01-13-2020 take 1 mg by mouth [...] 20 cap(s), Refills(s) 1, [facility]: [facility] #[id number], 165, cm, 12/18/22 8:28:00 EDT, Height/Length Dosing, [...] EA, 0, Dx: E11.9 Directions: Test BID, [facility], Supply, 166, cm, 05/10/21 8:27:00 EST, Height/Length Dosing, 92.8, kg, 05/10/21 8:27:00 EST, Weight Dosing Start Date: 05/10/21 Status: Ordered 3 ml insulin degludec 100 unt/ml pen injector (20 sources) Insulin Analog Start: 08-22-2022 inject 50 [IU] by subcutaneous injection once daily Tresiba FlexTouch 100 units/mL subcutaneous solution 50 unit(s), SubCutaneous, Daily, Dx E11.65, # 5 EA, Refills(s) 11, [facility]: [facility] #[id number], 165, cm, 06/11/22 9:10:00 EDT, Height/Length Dosing, 97.6, kg, 06/11/22 9:10:00 EDT, Weight Dosing Start Date: 08/22/22 Status: Ordered Start: 08-22-2022 inject 30 [IU] by griffin bcutaneous injection twice daily Tresiba FlexTouch 100 units/mL subcutaneous solution 30 unit(s), SubCutaneous, BID, Dx E11.65, # 5 EA, Refills(s) 11, [facility]: [facility] #[id number], 165, cm, 06/11/22 9:10:00 EDT, Height/Length Dosing, 97.6, kg, 06/11/22 9:10:00 EDT, Weight Dosing Start Date: 08/22/22 Status: Ordered Start: 09-24-2021 inject 30 [IU] by griffin bcutaneous injection twice daily Tresiba FlexTouch 100 units/mL subcutaneous solution 30 unit(s), SubCutaneous, BID, Dx E11.65, # 5 EA, Refills(s) 11, Pharmacy: [facility], 165, cm, 09/24/21 8:39:00 EDT, Height/Length Dosing, 95.3, kg, 09/24/21 8:39:00 EDT, Weight Dosing Start Date: 09/24/21 Status: Ordered Start: 05-10-2021 inject 50 [IU] by griffin bcutaneous injection at bedtime Tresiba FlexTouch 100 units/mL subcutaneous solution 50 unit(s), SubCutaneous, Bedtime, Dx E11.65, # 5 EA, Refills(s) 11, [facility], 166, cm, 05/10/21 8:27:00 EST, Height/Length Dosing, [...] 0.4 MG Sublingual Active polyethylene glycol 3350 568153 mg / potassium chloride 1480 mg / sodium bicarbonate 5720 mg / sodium chloride 25977 mg powder for oral solution (1 source) Osmotic Laxative Start: 05-05-2022 NuLYTELY Sara ry oral powder for reconstitution See Instructions, 1 EA, Refill(s) 0, Prior to colonoscopy., [facility] #[id number], 165, cm, 05/05/22 13:40:00 EST, Height/Length Dosing, 95.2, kg, 05/05/22 13:40:00 EST, Weight Dosing Start Date: 05/05/22 Status: Ordered Potassimin (9 sources) Potassimin Activ e predniSONE 20 mg oral tablet (1 source) Start: 04-10-2023 End: 04-17-2023 take 3 tablets by mouth once daily predniSONE 20 mg Tab 60 mg = 3 tab(s), Oral, Daily, X 7 day(s), # 21 tab(s), Refills(s) 0, Pharmacy: [facility] #[id number], 165, cm, 04/10/23 9:26:00 EST, Height/Length Dosing, 96.9, kg, 04/10/23 9:26:00 EST, Weight Dosing Start Date: 04/10/23 Stop Date: 04/17/23 Status: Ordered Psyllium (16 sources) Start: 11-06-2022 Metamucil Oral , Refills(s) [...] 05, 2018 11:00pm Has been instructed by [facility] to stop 2 days before heart cath Start: 08-06-2018 take 20 mg by mouth once daily Rivaroxaban Active 20 MG PO Every evening August 06, 2018 12:00am Has been instructed by [facility] to stop 2 days before heart cath Xarelto 10 10mg PO Active Tylenol 8 HR Arthritis Pain (13 sources) Start: 01-06-2023 take 650 mg by mouth every eight hours as needed for pain Tylenol 8 HR Arthritis Pain 650 mg, Oral, q8hr, PRN as needed for pain, Refills(s) 0 Start Date: 01/06/23 Status: Ordered ubidecarenone 100 mg oral capsule (14 sources) Start: 01-19-2023 take 1 capsule by mouth twice daily coenzyme Q-10 100 mg capsule Indications: Mixed hyperlipidemia , Atherosclerosis of [place] coronary artery of [place] heart without angina pectoris TAKE 1 CAPSULE BY MOUTH TWICE A DAY 180 capsule 3 01/19/2023 Active Start: 04-07-2022 End: 02-18-2023 Coenzyme Q10 Discontinued PO Daily April 07, 2022 12:00am February 18, 2023 9:26am Start: 11-12-2021 take 1 capsule by [facility] twice daily CoQ10 100 MG Oral [...] # 90 cap(s), Refills(s) 3, [facility]: [facility] #[id number], 165, cm, 05/21/22 12:25:00 EST, Height/Length Dosing, 95.2, kg, 05/21/22 12:25:00 EST, Weight Dosing Start Date: 05/26/22 Status: Ordered Start: 04-17-2021 take 1 capsule by [facility] once daily potassium chloride 10 mEq Cap-ER 10 mEq = 1 cap(s), Oral, Daily, # 90 cap(s), Refills(s) 3, [facility]: [facility], 165, cm, 12/10/20 11:57:00 EDT, [...] disease, stage 3 unspecified (CMS/HCC)] Onset: 01-10-20 23 Chronic obstructive pulmonary disease and bronchiectasis (1 source) Bronchitis; Translations: [Bronchitis, not specified as acute or chronic] Onset: 04-10-19 24 Episodic Chronic ulcer of skin (1 source) Chronic ulcer of skin of lower leg; Translations: [Non-pressure chronic ulcer of unspecified part of left lower leg with unspecified severity] Onset: 10-29-19 22 Chronic Complications of surgical procedures or medical care (20 sources) Postgastric surgery syndrome 09-11-2020 Episodic Conditions associated with dizziness or vertigo (2 sources) Dizziness; Translations: [Dizziness and giddiness] Onset: 09-18-19 23 Episodic Coronary atherosclerosis and other heart disease (20 sources) Coronary atherosclerosis; Translations: [Coronary atherosclerosis of [place] coronary artery] Onset: 09-18-19 23 09-11-2020 Chronic Coronary atherosclerosis and other heart disease (16 sources) Past history of procedure; Translations: [Percutaneous transluminal coronary angioplasty status] Onset: 01-10-2002-12-2023 Episodic Coronary atherosclerosis and other heart disease (3 sources) Coronary atherosclerosis and other heart disease; Translations: [Atherosclerosis of [place] arteries of left leg with ulceration of calf] Onset: 11-04-19 Diabetes mellitus with complications (3 sources) Type 2 diabetes mellitus with mild nonproliferative diabetic retinopathy without macular edema, bilateral; Translations: [Bilateral mild nonproliferative retinopathy due to diabetes mellitus type 2] Onset: 03-20-19 Chronic Diabetes mellitus without complication (20 sources) Diabetes mellitus; Translations: [Type 2 diabetes mellitus] Onset: 01-27-2008-07-2021 Chronic Comment on above: noted in 08/21/2019 [...] limb due to atherosclerosis; Translations: [Atherosclerosis of [place] arteries of extremities with gangrene, left leg] Onset: 10-29-19 Chronic Gastrointestinal hemorrhage (20 sources) Gastrointestinal hemorrhage; Translations: [Hemorrhage of rectum and anus] Onset: 06-12-19 23 05-05-2022 Episodic Hemorrhoids (20 sources) Complicated internal hemorrhoid; Translations: [Hemorrhoids] Onset: 06-12-1901-13-2020 Episodic Hypertension with complications and secondary hypertension (14 sources) Hypertensive heart and chronic kidney disease 12-17-2022 Chronic Comment on above: noted in 12/10/2021 Nephrology Consult Note page 3. added per outpatient CDI policy. Immunizations and screening for infectious disease (1 source) Viral screening status; Translations: [Encounter for screening for other viral diseases] Onset: 01-27-20 Episodic Joint disorders and dislocations; trauma-related (16 sources) Acetabular labrum tear 11-06-2022 Chronic Menopausal disorders (16 sources) Primary ovarian failure 11-06-2022 Chronic Osteoarthritis (16 sources) Osteoarthritis of hip 11-06-2022 Chronic Other aftercare (12 sources) Drug therapy finding; Translations: [Long-term (current) use of other medications] Episodic Other aftercare (1 source) Other rodent exterminator (current) drug therapy; Translations: [Other rodent exterminator (current) drug therapy] Onset: 09-18-19 Episodic Other aftercare (1 source) Long-term current use of drug therapy; Translations: [Other rodent exterminator (current) drug therapy] Onset: 01-27-20 Episodic Other aftercare (1 source) Long-term current use of anticoagulant; Translations: [roasterman (current) use of anticoagulants] Onset: 01-27-20 Episodic Other aftercare (2 sources) Long-term current use of insulin; Translations: [roasterman (current) use of insulin] Onset: 01-27-20 Episodic [...] Onset: 09-18-19 Episodic Other connective tissue disease (16 sources) Enthesopathy of hip region 11-06-2022 Episodic Other connective tissue disease (1 source) Enthesopathy of lower leg and ankle region; Translations: [Other specified enthesopathies of left lower limb, excluding foot] Onset: 03-20-19 Episodic Other diseases of veins and lymphatics (14 sources) Stasis dermatitis and venous ulcer of left lower extremity due to chronic peripheral venous hypertension 12-18-2022 Chronic Comment on above: resolved per 023 Wound Progress Note page 3. Other gastrointestinal disorders (15 sources) Non-infective diarrhea 04-29-2021 Episodic Other gastrointestinal disorders (19 sources) Altered [...] Chronic Other nutritional; endocrine; and metabolic disorders (15 sources) Morbid obesity; Translations: [Morbid (severe) obesity [...] extremity] Onset: 01-10-2004-11-2017 Episodic Residual codes; unclassified (19 sources) Sleep apnea; Translations: [Unspecified sleep apnea] [...] Spondylosis; intervertebral disc disorders; other back problems (14 sources) Prolapsed lumbar intervertebral disc 12-18-2022 Chronic Spondylosis; intervertebral disc disorders; other back problems (14 sources) Spinal stenosis of lumbar region 12-18-2022 Episodic Unclassified (20 sources) Non-smoker 02-24-2020 Unclassified (14 sources) Patient encounter status 11-06-2022 Unclassified (14 sources) Long-term current use of insulin 12-17-2022 [...] Reference Range Facil ity Consent for Treatmenton 03-17 Consent for Treatment [id number] IFF Normal [facility] Discharge Instructionson Discharge Instructions [id number] TIFF Normal [facility] ED Clinical Summaryon 2023 ED Clinical Summary (Inserted Image. [place] ble to display) [place] [id number] ED Clinical Summary Person Information Name: EVON CORCORAN [facility] Age: 72 Years : 1950 Sex: Female Language: Rwandan PCP: Christopher WELLS DO, FAAFP Marital Status: Visit Id: Visit Reason: Sinus Pain/Congestion; Cough; CONGESTION COUGH Speciality: Acuity: 4 Enc Type: Emergency Med Service: Emergency Arrival: 04/10/2023 09:13:22 Discharge: 04/10/2023 11:23:31 LOS: 000 02:10 Checkin: 04/10/2023 09:13:22 Checkout: 04/10/2023 11:23:31 Dispo Type: Home (Routine DC) EVENTS: Event Name Event Status Request Date/Time Start Date/Time Complete Date/Time Arrive Complete 04/10/2023 09:13:22 04/10/2023 09:13:22 04/10/2023 09:13:22 Document Home Meds Request 04/10/2023 09:13:22 Triage Complete 04/10/2023 09:13:22 04/10/2023 09:26:00 04/10/2023 09:26:00 Registration Complete 04/10/2023 09:17:21 04/10/2023 09:17:21 04/10/2023 09:17:21 Reg Complete Request 04/10/2023 09:17:21 Reg Bed Request Complete 04/10/2023 09:17:21 04/10/2023 09:17:21 04/10/2023 09:17:21 Bed Assign Complete 04/10/2023 09:17:58 04/10/2023 09:17:58 04/10/2023 09:17:58 Dr Exam Complete 04/10/2023 09:17:58 04/10/2023 09:18:53 04/10/2023 09:18:53 RN Exam Complete 04/10/2023 09:17:58 04/10/2023 09:40:50 04/10/2023 09:40:50 Registration Request 04/10/2023 09:18:53 Dr Exam Complete 04/10/2023 09:18:55 04/10/2023 09:18:55 04/10/2023 09:18:55 X-Ray Complete 04/10/2023 09:26:14 04/10/2023 09:44:19 04/10/2023 09:56:20 Wet Read Request 04/10/2023 09:56:20 Discharge Complete 04/10/2023 11:17:39 04/10/2023 11:23:38 04/10/2023 11:23:38 Transfer Complete 04/10/2023 11:23:38 04/10/2023 11:23:38 04/10/2023 11:23:38 ADDRESS: [address] [place] [id number] [facility] DOC NOTES: MEDICAL INFORMATION: Prescriptions Given: New Medications [facility] #[id number], [address] [place], [place] [id number], [phone] albuterol (Albuterol (Eqv-ProAir HFA) 90 mcg/inh inhalation aerosol) 2 Puffs Inhalation every 6 hours as needed Wheezing. Refills: 0. azithromycin (azithromycin 250 mg Tab 5-day Dose Pack (Z-Sanjay)) 1 Packets By Mouth As Directed for 5 Days. as directed on package labeling. Refills: 0. predniSONE (predniSONE 20 mg Tab) 3 Tablets By Mouth every day for 7 Days. Refills: 0. Medications to Continue with No Changes Other Medications acetaminophen (Tylenol 8 HR Arthritis Pain) 650 Milligram By Mouth every 8 hours as needed as needed for pain. amlodipine (amLODIPine 5 mg Tab) 1 Tablets By Mouth every day. aspirin 81 Milligram By Mouth every day. atorvastatin (atorvastatin 40 mg Tab) calcium-vitamin D (calcium (as carbonate)-vitamin D 500 mg-400 intl units oral tablet) 1 Tablets By Mouth every day. chlorthalidone (chlorthalidone 25 mg Tab) 1 Tablets By Mouth at bedtime. Refills: 1. insulin degludec (Tresiba FlexTouch 100 units/mL subcutaneous solution) 50 Units Subcutaneous every day. Dx E11.65. Refills: 11. insulin lispro (Lyumjev KwikPen 100 units/mL injectable solution) 10-12-15 units according to meal sizes. losartan (losartan 50 mg Tab) 1 Tablets [...] Capsules By Mouth every day. Refills: 3. psyllium (Metamucil) By Mouth. rivaroxaban (Xarelto 10 mg oral tablet) By Mouth every day. ubiquinone (Co Q-10) By Mouth every day. PATIENT EDUCATION INFORMATION: Instructions: Acute Bronchitis, Adult Follow up: With: Address: When: [address], [place] [address] Business (1) In 3 days 04/13/2023 DIAGNOSIS: Bronchitis Normal [facility] ED Note-Physicianon 04-10-19 ED Note-Physician Basic Information Time Seen: Radhames Suarez PA-C 04/10/2023 09:18 Chief Complaint pt reports cough since end of february. congestion intermittent. denies fevers. otc meds not working. History of Present Illness 72-year-old female comes to the ED for evaluation of cough. Over the last month she has had a progressive cough. Cough is productive with some green and yellow sputum. She is felt she had some wheezing. She denies any history of chronic lung disease. No fever, chills, nausea or vomiting. No acute chest pain or shortness of breath. No known sick contacts. She is taking [id number] cough and cold medications. Review of Systems A 10 point review of systems is negative except as noted above. Medical and Surgical History: Reviewed and noted Social history: Lives at home Tobacco: Denies Physical Exam Vitals & Measurements T: 36.9 ?C(Oral) HR: 82(Peripheral) RR: 16 BP: 168/68 SpO2: 97% HT: 165 cm WT: 96.9 kg BMI: 35.59 Nurses notes and vital signs reviewed and patient is not hypoxic. General: The patient appears well, resting comfortably. Skin: Warm, dry. Head: Atraumatic. Neck: No JVD. Eye: Normal conjunctiva. Ears, Nose, Mouth, and Throat: Moist mucous membranes. Cardiovascular: Strong distal pulses. Chest wall: Respiratory: Respirations are nonlabored. Occasional nonproductive cough. Faint wheezing. Back: Normal range of motion. Musculoskeletal: Normal ROM with no gross deformity. Gastrointestinal: Urological: Neurological: Awake and alert. No focal deficits. Follows commands. Psychiatric: Cooperative. Medical Decision Making Chest x-ray with no acute findings. She is treated with prednisone, azithromycin and albuterol. She is overall nontoxic. She has no acute chest pain or shortness of breath. She has stable vital signs. She is discharged home to follow-up with PCP. Patient was encouraged to return to the ED if symptoms worsen or change. Treatment is in accordance with MIPS measure #116: Avoidance of Antibiotic Treatment in Adults With Acute Bronchitis. Patient meets criteria for antibiotic treatment due to: No antibiotics within the last 30 days, duration of symptoms Assessment/Plan Bronchitis (J40: Bronchitis, not specified as acute or chronic) Orders: albuterol, 2 puff(s), Inhalation, q6hr Wheezing, 8.5 gm, Refill(s) 0, [facility] #[id number], 165, cm, 04/10/23 9:26:00 EST, Height/Length Dosing, 96.9, kg, 04/10/23 9:26:00 EST, Weight Dosing azithromycin, = 1 packet(s), Oral, As Directed, as directed on package labeling, X 5 day(s), # 6 tab(s), Refills(s) 0, Pharmacy: [id number], 165, cm, 04/10/23 9:26:00 EST, Height/Length Dosing, 96.9, kg, 04/10/23 9:26:00 EST, Weight Dosing predniSONE, 60 mg = 3 tab(s), Oral, Daily, X 7 day(s), # 21 tab(s), Refills(s) 0, Pharmacy: [facility] #[id number], 165, cm, 04/10/23 9:26:00 EST, Height/Length Dosing, 96.9, kg, 04/10/23 9:26:00 EST, Weight Dosing XR Chest 2 Views Disposition Plan Patient Discharge Condition Disposition: Discharged home Condition: Improved and stable Counseled: Patient and/or family were counseled to workup, results, treatment plan and follow-up recommendations Discharge Prescription List Prescriptions Albuterol (Eqv-ProAir HFA) 90 mcg/inh inhalation aerosol, 2 puff(s), Inhalation, q6hr, PRN azithromycin 250 mg Tab 5-day Dose Pack (Z-Sanjay), 1 packet(s), Oral, As Directed predniSONE 20 mg Tab, 60 mg= 3 tab(s), Oral, Daily Follow-up With When Contact Information Christopher WELLS In 3 days 04/13/2023 EST [address], [facility] [place] [address]- [facility] (1) Additional Instructions: Patient Education Acute Bronchitis, Adult Attestation Patient seen and evaluated by the physician civil engineering assistant. Attending physician was present in the emergency department and supervised care. This visit was performed by both the physician and an APC. I performed all aspects of the MDM as documented. This report was transcribed using voice recognition software. Every effort was made to ensure accuracy, however, inadvertently computerized label sewer mistakes may be present. Appropriate healthcare PPE was used in evaluating this patient. The patient was placed in a mask. The healthcare provider was wearing mask, gloves, and utilizing proper hand hygiene. All equipment was properly cleansed. 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 Normal [facility] Comment on above: Result Comment: Elec tronically Signed By: Radhames Suarez PA-C\.br\Date and Time Signed: 04/10/23 19:00 EST\.br\Electronically Co-Signed By: Malvin Gupta M.D.\.br\Date and Time Co-Signed: 04/10/23 19:08 EST ED Patient Education Noteon 04-10-2023 ED Patient Education Note Pulmonary Medicine Acute Bronchitis, Adult Acute bronchitis is sudden inflammation of the main airways (bronchi) that come off the windpipe (trachea) in the lungs. The swelling causes the airways to get smaller and make more mucus than normal. This can make it hard to breathe and can cause coughing or noisy breathing (wheezing). Acute bronchitis may last several weeks. The cough may last longer. Allergies, asthma, and exposure to smoke may make the condition worse. What are the causes? This condition can be caused by germs and by substances that irritate the lungs, including: ? Cold and flu viruses. The most common cause of this condition is the virus that causes the common cold. ? Bacteria. This is less common. ? Breathing in substances that irritate the lungs, including: ? Smoke from cigarettes and other forms of tobacco. ? Dust and pollen. ? Fumes from household cleaning products, gases, or burned fuel. ? Indoor or outdoor air pollution. What increases the risk? The following factors may make you more likely to develop this condition: ? A weak body's defense system, also called the immune system. ? A condition that affects your lungs and breathing, such as asthma. What are the signs or symptoms? Common symptoms of this condition include: ? Coughing. This may bring up clear, yellow, or green mucus from your lungs (sputum). ? Wheezing. ? Runny or stuffy nose. ? Having too much mucus in your lungs (chest congestion). ? Shortness of breath. ? Aches and pains, including sore throat or chest. How is this diagnosed? This condition is usually diagnosed based on: ? Your symptoms and medical history. ? A physical exam. You may also have other tests, including tests to rule out other conditions, such as pneumonia. These tests include: ? A test of lung function. ? Test of a mucus sample to look for the presence of bacteria. ? Tests to check the oxygen level in your blood. ? Blood tests. ? Chest X-ray. How is this treated? Most cases of acute bronchitis clear up over time without treatment. Your health care provider may recommend: ? Drinking more fluids to help thin your mucus so it is easier to cough up. ? Taking inhaled medicine (inhaler) to improve air flow in and out of your lungs. ? Using a vaporizer or a humidifier. These are machines that add water to the air to help you breathe better. ? Taking a medicine that thins mucus and clears congestion (expectorant). ? Taking a medicine that prevents or stops coughing (cough suppressant). It is not common to take an antibiotic medicine for this condition. Follow these instructions at home: ? Take boys-btg-zdowsbv and prescription medicines only as told by your health care provider. ? Use an inhaler, vaporizer, or humidifier as told by your health care provider. ? Take two teaspoons (10 mL) of honey at bedtime to lessen coughing at night. ? Drink enough fluid to keep your urine pale yellow. ? Do not use any products that contain nicotine or tobacco. These products include cigarettes, chewing tobacco, and vaping devices, such as e-cigarettes. If you need help quitting, ask your health care provider. ? Get plenty of rest. ? Return to your normal activities as told by your health care provider. Ask your health care provider what activities are safe for you. ? Keep all follow-up visits. This is important. How is this prevented? To lower your risk of getting this condition again: ? Wash your hands often with soap and water for at least 20 seconds. If soap and water are not available, use hand malter operator. ? Avoid contact with people who have cold symptoms. ? Try not to touch your mouth, nose, or eyes with your hands. ? Avoid breathing in smoke or chemical fumes. Breathing smoke or chemical fumes will make your condition worse. ? Get the flu shot every year. Contact a health care provider if: ? Your symptoms do not improve after 2 weeks. ? You have trouble coughing up the mucus. ? Your cough keeps you awake at night. ? You have a fever. Get help right away if you: ? Cough up blood. ? Feel pain in your chest. ? Have severe shortness of breath. ? Faint or keep feeling like you are going to faint. ? Have a severe headache. ? Have a fever or chills that get worse. These symptoms may represent a serious problem that is an emergency. Do not wait to see if the symptoms will go away. Get medical help right away. Call your local emergency services (911 in the [place] Do not drive yourself to the hospital. Summary ? Acute bronchitis is inflammation of the main airways (bronchi) that come off the windpipe (trachea) in the lungs. The swelling causes the airways to get smaller and make more mucus than normal. ? Drinking more fluids can help thin your mucus so it is easier to cough up. ? Take xvgm-cem-qvhqstj and prescription medici (more content not included)... Normal [facility] ED Patient Summaryon 024 ED Patient Summary (Inserted Image. [place] ble to display) [place] [id number] Patient Discharge Instructions Person Information Name: EVON CORCORAN Age: 72 Years Arrival Date: 04/10/2023 09:13:22 Discharge Diagnosis: Bronchitis Primary Care Physician: Christopher WELLS DO, FAAFP Provider Information Primary Provider: Malvin Gupta M.D. Advanced Silk Hanger:Radhames Suarez PA-C The exam and treatment you received in the Emergency Department were for an urgent problem and are not intended as complete care. It is important that you follow up with a doctor, nurse practitioner, or physician?s civil engineering assistant for ongoing care. If your symptoms become worse or you do not improve as expected and you are unable to reach your usual health care provider, you should return to the Emergency Department. We are available 24 hours a day. TAMARAWILLARDEVON RDZ has been given the following list of patient education materials, prescriptions and follow-up instructions: Follow-up Instructions: With: Address: When: Christopher WELLS [address] [place] [address] A [place] [id number] [facility] () In 3 days 04/13/2023 In the event that this physician does not participate in your insurance network, please consult with your insurance company to find a nearby participating provider. Patient Education Materials: Acute Bronchitis, Adult A MESSAGE TO ALL PATIENTS REGARDING OPIOIDS PRESCRIPTION OPIOIDS: WHAT YOU NEED TO KNOW Prescription opioids can be used to help relieve fghrcery-hu-lzcmwg pain and are often prescribed following a surgery or injury, or for certain health conditions. These medications can be an important part of the treatment but also come with serious risks. It is important to work with your healthcare provider to make sure you are getting the safest, most effective care. WHAT ARE THE RISKS AND SIDE EFFECTS OF OPIOID USE? Prescription opioids carry serious risks of addiction and overdose, especially with prolonged use. An opioid overdose, often marked by slowed breathing, can cause sudden . The use of prescription opioids can have a number of side effects as well, even when taken as directed: ? Tolerance?meaning you might need to take more of the medication for the same pain relief ? Physical dependence?meaning you have symptoms of withdrawal when a medication is stopped ? Increased sensitivity to pain ? Constipation ? Nausea, vomiting, and dry mouth ? Sleepiness and dizziness ? Confusion ? Depression ? Low levels of testosterone that can result in lower sex drive, energy, and strength ? Itching and sweating RISKS ARE GREATER WITH: ? History of drug misuse, substance use disorder, or overdose ? Mental health conditions (such as depression or anxiety) ? Sleep apnea ? Older age (65 years and older) ? Avoid alcohol while taking prescription opioids. Also, unless specifically advised by your health care provider, medications to avoid include: ? Benzodiazepines (such as Xanax or Valium) ? Muscle relaxants (such as Soma or Flexeril) ? Hypnotics (such as Ambien or Lunesta) ? Other prescription opioids KNOW YOUR OPTIONS Talk to your health care provider about ways to manage your pain that don?t involve prescription opioids. Some of these options may actually work better and have fewer risks and side effects. Options may include: ? Pain relievers such as acetaminophen, ibuprofen, and naproxen ? Some medication that are also used for depression or seizures ? Physical therapy and exercise ? Cognitive behavioral therapy, a psychological, goal-directed approach, in which patients learn how to modify physical, behavioral, and emotional triggers of pain and stress. IF YOU ARE PRESCRIBED OPIOIDS FOR PAIN: ? Never take opioids in greater amounts or more often than prescribed. ? Follow up with your primary health care provider. o Work together to create a plan on how to manage your pain. o Talk about ways to help manage your pain that don?t involve prescription opioids. o Talk about any and all concerns and side effects. ? Help prevent misuse and abuse o Never sell or share prescription opioids. o Never use another person?s prescription opioids. ? Store prescription opioids in a secure place and out of reach of others (this may include visitors, children, friends, and family). ? Safely dispose of unused prescription opioids: Find your community drug take-back program or your pharmacy mail-back program, or flush them down the toilet, following guidance from the Food and Drug Administration (www.fda.gov/Drugs/Reso urcesForYou). ? Visit www.cdc.gov/drugoverdos e to learn about the risks of opioids abuse and overdose. ? If you believe you may be struggling with addiction, tell your health child care center assistant director and ask for guidance or call SAMHSA?S National Helpline at 6-766-178-HELP. v Yobany (more content not included)... Normal [facility] XR Chest 2 Viewson 4 XR Chest 2 Views Exam Date/Time: 04/10/2023 09:56 EST Reason for Exam: Cough Report IMPRESSION: NO RADIOGRAPHIC EVIDENCE OF ACTIVE DISEASE IN THE CHEST. CLINICAL INFORMATION: Cough COMPARISON: None available. FINDINGS: Two views of the chest were obtained. Heart and mediastinum appear normal. The lungs appear clear. Visualized bony thorax and remainder of the chest appears unremarkable. Ordering Provider: Radhames Suarez FINAL REPORT Dictated: 04/10/2023 10:06 am Andrew Anna MD Signed (Electronic Signature): 04/10/2023 10:06 am Signed by: Andrew Anna MD Transcribed by: KATEY Technologist: JUAN MIGUEL [facility] Consent for Treatmenton Consent for Treatment [id number]#1.00T IFF [facility] Consultation Noteon 03-23-19 24 Consultation Note Patient: EVON CORCORAN Age: 72 [...] E11.9 Directions: Test BID, [facility], Supply, 166, cm, 05/10/21 8:27:00 EST, Height/Length Dosing, 92.8, kg, 05/10/21 8:27:00 EST, Weight Dosing Lancets: Lancets, See Instructions, 100 EA, 11, Dx: E11.9 Directions: BID, [facility], Supply, 166, cm, 05/10/21 8:27:00 EST, Height/Length Dosing, 92.8, kg, 05/10/21 8:27:00 EST, Weight Dosing Test strips: Test strips, See Instructions, 100 EA, 11, Dx: E11.9 Directions: BID, [facility] #[id number], Supply, 165, cm, 06/11/22 9:10:00 EDT, Height/Length Dosing, 97.6, kg, 06/11/22 9:10:00 EDT, Weight Dosing Tresiba FlexTouch 100 units/mL subcutaneous solution: 50 unit(s), SubCutaneous, Daily, Dx E11.65, # 5 EA, Refills(s) 11, Pharmacy: [id number], 165, cm, 06/11/22 9:10:00 EDT, Height/Length Dosing, 97.6, kg, 06/11/22 9:10:00 EDT, Weight Dosing chlorthalidone 25 mg Tab: 25 mg = 1 tab(s), Oral, Bedtime, # 90 tab(s), Refills(s) 1, Pharmacy: [facility] #[id number], 165, cm, 09/10/22 8:16:00 EDT, Height/Length Dosing, 97.4, kg, 09/10/22 8:16:00 EDT, Weight Dosing potassium chloride 10 mEq Cap-ER: 10 mEq = 1 cap(s), Oral, Daily, # 90 cap(s), Refills(s) 3, Pharmacy: [facility] #[id number], 165, cm, 05/21/22 12:25:00 EST, Height/Length Dosing, [...] Problems HTN - Hypertension / SNOMED CT 2769008519 / Confirmed Familial hypercholesteremia / SNOMED CT 7661633770 / Confirmed Non-smoker / SNOMED CT 19237075 / Confirmed 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 Type 2 diabetes mellitus with stage 3 chronic kidney disease / SNOMED CT 984766594 / Confirmed linked DM with CKD per outpatient CDI policy. Mild nonproliferative diabetic retinopathy of both eyes / SNOMED CT 438485317 / Confirmed noted in 08/21/2019 Diabetic Eye Exam. added per outpatient CDI policy. 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 Normal [facility] Comment on above: Result Comment: Elec tronically Signed By: Dawit BARTH, Mara\.br\Date and Time Signed: 03/23/23 09:07 EST Legal Correspondence Officeo n 03-23-2023 Legal Correspondence Office [id number]#1.00 TIFF Normal [facility] Office/Clinic Note-Physician on 03-23-2023 Office/Clinic Note-Physician [id number]#1.00 TIFF Normal [facility] Patient Correspondenceon Patient Correspondence [id number]#1.00 TIFF Normal [facility] Patient Correspondence [id number]#1.00 TIFF Normal [facility] Patient Correspondence [id number]#1.00 TIFF Normal [facility] Patient Correspondence [id number]#1.00 TIFF Normal [facility] Patient History Officeon Patient History Office [id number]#1.00 TIFF Normal [facility] Family Medicine Office/Clini c Noteon 03-20-2023 Family [...] extremities (I73.9: Peripheral vascular disease, unspecified) Dr Karina griggs, 06/06 FU re: potential procedure: Clinically currently asymptomatic and lug-jayv-cwgrlxslsge. Please see Dr. Castro's consultation 2. BMI [...] and exercise. 4. Long-term insulin use (Z79.4: roasterman (current) use of insulin) Dr Ssbbagh following. 5. Mild nonproliferative diabetic retinopathy of both eyes (E11.3293: Type 2 diabetes mellitus with mild nonproliferative diabetic retinopathy without macular edema, bilateral) Follow-up with syrup filterer 6. Type 2 diabetes mellitus with hypercholesterolemia (E11.69: Type 2 diabetes mellitus with other specified complication) Tresiba 50 units SQ every morning with sliding scale per med rec per Dr. Salter. Continue losartan: Sugars improved, surveillance A1c's per Dr. Ruggiero 7. Type 2 diabetes mellitus with stage (more content not included)... Normal [facility] Comment on above: Result Comment: Elec tronically Signed By: RUSSELL SHEPHERD FAAFP, Christopher Montenegro\.maria teresa\Date and Time Signed: 03/20/23 09:40 EST Patient [...] plan? Your health care provider or certified pharmacy technician can help you make a plan for [...] stroke). Where to find more information ? [place] [employer]: www.diabetes.org Summary ? Exercising regularly is important for overall health, especially for people who have diabetes mellitus. ? Exercising has many health benefits. It increases muscle strength and bone density and reduces body fat and stress. It also lowers and controls blood glucose. ? Your health care provider or certified pharmacy technician can help you make an activity plan [...] provider. Document Revised: 11/28/2019 Document Reviewed: 11/28/2019 [employer] Patient Education ? 2022 e[address]ift. [facility] Nursing Note - Woundon 03-19 Nursing Note - Wound [id number]#2.[address] [facility] Consultation Noteon 03-07-20 23 Consultation Note [id number]#1.00T IFF [facility] CHEMISTRYOrdered By: Lab ROP User on 03-04-2023 Glucose [Mass/Vol] 78 mg/dL Normal 55 - 99 mg/dL [facility] C POC Subsection POC Device SN [id number] Invalid Interpretation Code [facility] POC Subsection POC Username MACIE POTTS Invalid Interpretation Code [facility] POC Subsection Sodium [Moles/Vol] [id number] mmol/L Invalid Interpretation Code [facility] POC Subsection Capillary Glucose POCon 02-14 Glucose [Mass/Vol] 78 mg/dL Normal 55-99 [facility] Comment on above: Performed By: #### 2 [id number] #### [facility] [address] [place] [address] Consent for Procedure/Surger yon 03-04-2023 Consent for Procedure/Surgery [id number]#1.[address] [facility] Consent for Treatmenton 02-14 Consent for Treatment [id number]#1.00T IFF [facility] Discharge Instructionson Discharge Instructions [id number]#1.00 TIFF Normal [facility] Insurance Correspondenceon 1 05-05-2022 Insurance Correspondence [id number]#1.00 TIFF Normal [facility] IntraOperative Documentson 1 05-05-2022 IntraOperative Documents [id number]#1.00 TIFF Normal [facility] Main OR Intraoperative Recor don 03-04-2023 Main OR Intraoperative Record IntraOp Document Type FTPM Summary Primary Physician: Nicola Tapia DO Finalized Date/Time: 03/04/23 09:06:01 Pt. Name: EVON COCRORAN Brent Veras/Sex: 1950 Female Med Rec #: [id number] Physician: Nicola Tapia DO Financial #: [id number] Pt. Type: P Room/Bed: / Admit/Disch: 03/04/23 07:48:24 - Institution: Case Times FTPM Entry 1 Patient Times In Room 03/04/23 09:01:00 Out Room 03/04/23 09:06:00 Procedure Times Start 03/04/23 09:04:00 Stop 03/04/23 09:05:00 Anesthesia Times Last Modified By: Estrellita Maria RN 03/04/23 09:05:48 Case Attendance FTPM Entry 1 Entry 2 Entry 3 Case Attendee Nicola Tapia DO, RN, Estrellita Armstrong RN, Leanne Montenegro Role Performed Surgeon - Primary Material Handling Crew Supervisor - Primary Scrub - Primary Time In 03/04/23 09:01:00 03/04/23 09:01:00 03/04/23 09:01:00 Time Out 03/04/23 09:06:00 03/04/23 09:06:00 03/04/23 09:06:00 Procedure HIP INJECTION(Left) HIP INJECTION(Left) HIP INJECTION(Left) Comments Last Modified By: Crow ECHAVARRIA, Estrellita Maria RN, Estrellita Ryder RN 03/04/23 09:05:56 03/04/23 09:05:56 03/04/23 09:05:56 Entry 4 Case Attendee Ervin Mckeon Role Performed Interior Block Wirer Time In 03/04/23 09:01:00 Time Out 03/04/23 [...] X-ray Applicable) PreOp Antibiotic No Time Out Estrellita Maria RN, Given Participants Nathaniel ECHAVARRIA, Willie Padgett DO, Bradford A., Ervin Mckeon Time Out Complete 03/04/23 09:01:00 Outcomes Met? [...] and tissue Entry 1 Skin Integrity Intact, [place], Warm, and Skin Abnormality No Dry Outcomes [...] injury related (more content not included)... Normal [facility] Main OR Preoperative Recordo n 03-04-2023 Main OR Preoperative Record Holding Area Document Type FTPM Summary Primary Physician: Nicola Tapia DO Finalized Date/Time: 03/04/23 08:19:34 Pt. Name: EVON CORCORAN/Sex: 1950 Female Med Rec #: [id number] Physician: Nicola Tapia DO Financial #: [id number] Pt. Type: P Room/Bed: / Admit/Disch: 03/04/23 [...] Macie Potts RN 03/04/23 08:[address] [facility] Consent for Treatmenton 02-13 Consent for Treatment [id number]#1.00T IFF Normal [facility] Multi-Wound Charton 03-03-20 Multi-Wound Chart [id number]#1.00 TIFF Normal [facility] Nursing Assessment - Woundon 03-03-2023 Nursing Assessment - Wound [id number]#1.00 TIFF Normal [facility] Physician Orderon 03-03-2023 Physician Order [id number]#1.00 TIFF Normal [facility] Progress Note - Woundon 02-13 Progress Note - Wound [id number]#1.[address] [facility] Correspondence - Woundon Correspondence - Wound [id number]#1.[address] [facility] Consent for Procedure/Surger yon 02-24-2023 Consent for Procedure/Surgery [id number]#1.[address] [facility] Consent for Treatmenton 02-13 Consent for Treatment [id number]#1.00T IFF [facility] Multi-Wound Charton 02-25-20 Multi-Wound Chart [id number]#1.[address] [facility] Nursing Assessment - Woundon 02-24-2023 Nursing Assessment - Wound [id number]#1.[address] [facility] Nursing Note - Woundon 02-24 Nursing Note - Wound [id number]#1.[address] [facility] Physician Orderon 02-24-2023 Physician Order [id number] 202 [id number]#1.[address] [facility] Procedure - Woundon 02-25-20 Procedure - Wound [id number] 202 [id number]#1.[address] [facility] Progress Note - Woundon 02-13 Progress Note - Wound [id number]#1.[address] [facility] Retail - Clinical Noteon Retail - Clinical Note [id number]#1.00T IFF [facility] US venous mapping BI loweron 02-19-2023 US venous mapping BI lower [facility] Main [place] [address] [place] [address] Ultrasound Report Signed Patient: Evon Corcoran MR#: [id number] : 1950 Acct:[id number] Age/Sex: 72 / F ADM Date: 02/18/23 Loc: IR Room: Type: [facility] Attending Dr: Miguel Membreno MD Ordering [...] Miguel Membreno M.D.02/19/2023 1:30 PM Dictation Location: [place] [address] Tech: Isabell Duarte Transcribed By: RICH 02/19/23 1330 Dictated By: Miguel Membreno MD 02/19/23 1327 Signed By: 02/19/23 1330 Normal [facility] Blood Urea Nitrogenon 2022 Urea nitrogen [Mass/Vol] 25 mg/dL Normal 7-25 [facility] Comment on above: Performed By: #### C REAT, BUN #### [facility] [address] [place] [id number] [place] Creatinineon 02-18-2023 Creatinine [Mass/Vol] 1.18 mg/dL Normal 0.60-1.20 [facility] Comment on above: Performed By: #### C REAT, BUN #### [facility] [address] [place] [address] [place] Creatinine Clr Calc Pharmacy 49.07 Normal [facility] Comment on above: Result Comment: PERF ORMED BY: [place] [address] PATHOLOGIST TAKE AWAY MAN AIRAM ROMEO M.D. Performed By: #### C REAT, BUN #### [facility] [address] [place] [address] [place] GFR/1.73 sq M.predicted MDRD (S/P/Bld) [Vol rate/Area] 48.770 mL/min/{1.73_m2} Normal [facility] Comment on above: Performed By: #### C REAT, BUN #### [facility] [address] [place] [address] [place] Creatinine [Mass/volume] in Serum or PlasmaOrdered By: Miguel Membreno on 02-18-2023 Creatinine [Mass/Vol] 1.18 mg/dL 0.60-1.20 [facility] Lab Reportson 02-18-2023 Lab Reports [id number]#1.00T IFF Normal [facility] No Panel InformationOrdered By: Miguel Membreno on 02-18-2023 Estimated GFR (CKD-EPI) 48.770 mL/Min [facility] Creatinine Clearance (Chem 49.07 [facility] Operative Reporton Operative Report [id number] 204 [id number]#1.00T IFF Normal [facility] Retail - Clinical Noteon Retail - Clinical Note [id number]#1.00T IFF Normal [facility] Retail - Clinical Note [id number]#1.00T IFF Normal [facility] Urea nitrogen [Mass/volume] in Serum or PlasmaOrdered By: Miguel Membreno on 02-18-2023 Urea nitrogen [Mass/Vol] 25 mg/dL 10-07 [facility] Insurance Correspondenceon 1 04-20-2022 Insurance Correspondence [id number]#1.00 TIFF Normal [facility] Physician Orderon 02-17-2023 Physician Order [id number]#1.00 TIFF Normal [facility] CHEMISTRYOrdered By: Lab ROP User on 02-16-2023 Glucose [Mass/Vol] 311 mg/dL High 55 - 99 mg/dL FT C POC Subsection POC Device SN [id number] Invalid Interpretation Code [facility] POC Subsection POC Username RONI CHOWDHURY Invalid Interpretation Code [facility] POC Subsection Sodium [Moles/Vol] [id number] mmol/L Invalid Interpretation Code [facility] POC Subsection Capillary Glucose POCon Glucose [Mass/Vol] 311 mg/dL High 55-99 [facility] Comment on above: Performed By: #### 2 [id number] #### [facility] [address] [place] [address] Consent for Treatmenton Consent for Treatment [id number]#1.00T IFF [facility] Consent for Treatment [id number]#1.00T IFF [facility] Main OR Preoperative Recordo n 02-16-2023 Main OR Preoperative Record Holding Area Document Type [facility] Summary Primary Physician: Gary Cerda MD Finalized Date/Time: 02/16/23 13:36:16 Pt. Name: YOKASTA CORCORANLAW Veras/Sex: 1950 Female Med Rec #: [id number] Physician: Gary Cerda MD Financial #: [id number] Pt. Type: P Room/Bed: / Admit/Disch: 02/16/23 [...] 13:19 Bertha Chowdhury RN 02/16/23 13:36 Normal [facility] Multi-Wound Charton 02-17-20 Multi-Wound Chart [id number] 201 [id number]#1.00 TIFF Normal [facility] Nursing Assessment - Woundon 02-16-2023 Nursing Assessment - Wound [id number]#1.00 TIFF Normal [facility] Nursing Note - Woundon 02-16 Nursing Note - Wound [id number]#1.00 TIFF Normal [facility] Patient Correspondenceon Patient Correspondence [id number]#1.00T IFF Normal [facility] Consent for Procedure/Surger yon 02-10-2023 Consent for Procedure/Surgery [id number]#1.00 TIFF Normal [facility] Consent for Treatmenton 01-15 Consent for Treatment [id number]#1.00T IFF Normal [facility] Multi-Wound Charton 02-11-20 Multi-Wound Chart [id number] 102 [id number]#1.00 TIFF Normal [facility] Nursing Assessment - Woundon 02-10-2023 Nursing Assessment - Wound [id number]#1.00 TIFF Normal [facility] Nursing Note - Woundon 02-10 Nursing Note - Wound [id number]#1.00 TIFF Normal [facility] Physician Orderon 02-10-2023 Physician Order [id number] 102 [id number]#1.00 TIFF Normal [facility] Procedure - Woundon 02-11-20 Procedure - Wound [id number] 102 [id number]#1.00 TIFF Normal [facility] Progress Note - Woundon 01-15 Progress Note - Wound [id number]#1.00 TIFF Normal [facility] Insurance Correspondenceon 04-05-2022 Insurance Correspondence [id number]#1.00 TIFF Normal [facility] Insurance Correspondenceon 04-04-2022 Insurance Correspondence [id number]#1.[address] [facility] Patient Letter [facility] January 29, 2023 EVON CORCORAN [address] [place] [address] EVON CORCORAN L 1950 We are pleased that you have agreed to participate in our Care Management service. As discussed, we can assist you to coordinate your health care needs and educate you about your health conditions. Our goal is to help you achieve the best possible health outcomes. As part of our service, we will assist you in the following areas: ? Assign a Communication Spec who will work with you to help [...] phone contact on 02/19/2023 at 08:00 AM. [facility]Sheila RN Chronic Communication Spec [phone] opt. #[address] [facility] Consent for Procedure/Surger yon 01-27-2023 Consent for Procedure/Surgery [id number]#1.[address] [facility] Consent for Treatmenton 01-14 Consent for Treatment [id number]#1.00T IFF [facility] Multi-Wound Charton 01-28-20 23 Multi-Wound Chart [id number] 102 [id number]#1.[address] [facility] Nursing Assessment - Woundon 01-27-2023 Nursing Assessment - Wound [id number]#1.[address] [facility] Nursing Note - Woundon 01-27 Nursing Note - Wound [id number]#1.[address] [facility] Physician Orderon 01-27-2023 Physician Order [id number] 102 [id number]#1.00 TIFF Normal [facility] Procedure - Woundon 01-28-20 Procedure - Wound [id number] 102 [id number]#1.00 TIFF Normal [facility] Progress Note - Woundon 01-14 Progress Note - Wound [id number]#1.00 TIFF Normal [facility] Ambulatory Visit Summaryon 03-28-2022 Ambulatory Visit Summary [...] Appointments Thursday 2:00 PM EST With: Denton Mares DPM Where: [facility] [place] Thursday 9:45 AM EST With: Where: [facility] Pain Management Thursday 8:45 AM EST With: Gary Cerda MD Where: [facility] 2022 8:00 AM EST With: Linda Solorio CNP Where: [facility] Invalid Interpretation Code [address], [place] [address]- \.br\ Thursday 8:00 AM EST \.br\ With:\.br\ Where: [facility] Primary Care [facility] Family Medicine Office/Clini c Noteon 01-26-2023 Family [...] of clutter to prevent tripping and/or falling. [place] Advance Directives reviewed. Documents remain at home, [...] Labs were ordered, to be completed with [facility]. Mammogram and DEXA scan up to date, [...] Lundy as directed. Following with Podiatry Dr Mares frequently foot/nail care, ulceration to leg. Reminded to perform at home foot checks to prevent future complications. DM eye exams completed about every 2 years. Encouraged to schedule appointment soon as vision could be compromised or even lost with having Diabetes. Will continue to follow up with providers as directed. 3. Long-term insulin use (Z79.4: retirement (current) use of insulin) Patient voices understanding with proper use of insulin dosage. Follows up with labs, DM supplies and dosage adjustments as needed. Reviewed available sites that can be used to administer Insulin, patient voices understanding. Will continue as directed. 4. Chronic renal impairment, stage 3a (N18.31: Chronic kidney disease, stage 3a) Follows with Insurance Verifier, Dr. Núñez. Encouraged with avoiding NSAID's. Healthy Kidney Nutritional education material provided. Goals to keep blood sugars and blood pressure under better control to reduce cardiovascular risk factors. Medications and blood work monitored with visits. Continues taking statin medication daily. 5. 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 Stressed importance of loosing weight as being overweight does produce more lipids. Risks may also increase with a family history of hyperlipidemia. Encouraged with healthy dietary choices to reduce risk factors associated with CVA. Will continue to follow up with labs as directed. 6. Anticoagulated (Z79.01: roasterman (current) use of anticoagulants) Taking Xarelto and [...] of Hepatitis C for people born between 1054-9034. Hand (more content not included)... Normal [facility] Comment on above: Result Comment: Elec tronically Signed By: Christopher WELLS DO, FAAFP\.br\Date and Time Signed: 01/26/23 17:15 EST\.br\Electronically Co-Signed By: Lesly West LPN\.br\Date and Time Co-Signed: 01/26/23 09:21 EST Nursing Assessment - Woundon 01-26-2023 Nursing Assessment - Wound [id number]#2.[address] [facility] Nursing Note - Woundon 01-26 Nursing Note - Wound [id number]#2.[address] [facility] Patient Educationon 01-27-20 Patient Education Caregiving Fall Prevention in the Home, Adult Falls [...] Keep items that you use often in nhhe-tw-nolty places. Lower the shelves around your home [...] the way. ? Do not use floor malagasy or wax that makes floors slippery. What [...] Control and Prevention, STEADI: www.cdc.gov ? National [place] on Aging: www.[place].nih.gov Contact a doctor if: [...] provider. Document Revised: 12/02/2021 Document Reviewed: 10/03/2020 [employer] Patient Education ? 2022 eÇift. Endocrinology Diabetes Melli (more content not included)... [facility] Screenson 01-26-2023 Screens [id number] [id number]#1.00TI FF [facility] Multi-Wound Charton 01-24-20 23 Multi-Wound Chart [id number] 105 [id number]#1.[address] [facility] Physician Orderon 01-23-2023 Physician Order [id number] 105 [id number]#1.[address] [facility] Consent for Treatmenton Consent for Treatment [id number]#1.00T IFF [facility] Consent for Procedure/Surger yon 01-14-2023 Consent for Procedure/Surgery [id number]#1.[address] [facility] Consent for Procedure/Surgery [id number]#1.[address] [facility] Nursing Assessment - Woundon 01-14-2023 Nursing Assessment - Wound [id number]#1.[address] [facility] Nursing Note - Woundon 01-14 Nursing Note - Wound [id number]#2.[address] [facility] CHEMISTRYOrdered By: Cynthia Serrano se on 01-13-2023 HbA1c (Bld) [Mass fraction] 11.5 % High <=5.9% [facility] ChemAutoSS Consent for Treatmenton 12-16 Consent for Treatment [id number]#1.00T IFF Normal [facility] Consent to Photographon 12-16 Consent to Photograph [id number]#1.00T IFF Normal [facility] Correspondence - Woundon Correspondence - Wound [id number]#1.00T IFF Normal [facility] Correspondence - Wound [id number]#1.00T IFF Normal [facility] Correspondence - Wound [id number]#1.00T IFF Normal [facility] MhyY4ttb 01-13-2023 HbA1c (Bld) [Mass fraction] 11.5 % High <=5.9 [facility] Comment on above: Performed By: #### 2 [id number] #### [facility] [address] [place] [address] Multi-Wound Charton 01-14-20 Multi-Wound Chart [id number] 002 [id number]#1.00 TIFF Normal [facility] Nursing Assessment - Woundon 01-13-2023 Nursing Assessment - Wound [id number]#1.00 TIFF Normal [facility] Outside Recordson 01-13-2023 Outside Records [id number] 231 [id number]#1.00T IFF Normal [facility] Patient Correspondenceon Patient Correspondence [id number]#1.00 TIFF Normal [facility] Physician Orderon 01-13-2023 Physician Order [id number] 002 [id number]#1.00 TIFF Normal [facility] Procedure - Woundon 01-14-20 Procedure - Wound [id number] 002 [id number]#1.00 TIFF Normal [facility] Progress Note - Woundon - Progress Note - Wound [id number]#1.00 TIFF Normal [facility] Insurance Correspondenceon 1 Insurance Correspondence [id number]#1.[address] [facility] Radiology Outside Office Correctional Nurse yon 01-07-2023 Radiology Outside Office Copy [id number]#1.[address] [facility] Consent for Treatmenton 12-15 Consent for Treatment [id number]#1.00T IFF 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 / SNOMED CT 84836899 / Confirmed Change in bowel habits / SNOMED CT 775461089 / Confirmed Chronic renal impairment, stage 3a / SNOMED CT 9120220335 / Confirmed Claudication of both lower extremities / SNOMED CT 225657216 / Confirmed Colon polyp / SNOMED CT 247397834 / Confirmed Degenerative localized arthritis of hip / SNOMED CT 960024055 / Confirmed 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 / SNOMED CT 169137080 / Confirmed Diabetes / SNOMED CT 578400168 / Confirmed Diarrhea / SNOMED CT 563204355 / Confirmed Enthesopathy of left hip region / SNOMED CT 53151133 / Confirmed Familial hypercholesteremia / SNOMED CT 1753104162 / Confirmed Hemorrhoids / SNOMED CT 780224964 / Confirmed History of colon polyps / SNOMED CT 1995733672 / Confirmed History of DVT in adulthood / SNOMED CT 1536033383 / Confirmed HTN - Hypertension / SNOMED CT 8603035988 / Confirmed Hypertensive heart and chronic kidney disease without heart failure, with stage 1 through stage 4 chronic kidney disease, or unspecified chronic kidney disease / SNOMED CT 8495682743 / Confirmed noted in 12/10/2021 Nephrology Consult Note page 3. added per outpatient CDI policy. Long-term insulin use / SNOMED CT 5627070249 / Confirmed Current Medication List includes Tresiba. added per outpatient CDI policy. Lumbar disc herniation / SNOMED CT 997108952 / Confirmed Lumbar stenosis / SNOMED CT 87560174 / Confirmed Mild nonproliferative diabetic retinopathy of both eyes / SNOMED CT 171185546 / Confirmed noted in 08/21/2019 Diabetic Eye Exam. added per outpatient CDI policy. Morbid obesity / SNOMED CT 650260468 / Confirmed Non-smoker / SNOMED CT 05154428 / Confirmed Primary ovarian failure / SNOMED CT 745880021 / Confirmed Sleep apnea / SNOMED CT 315465204 / Confirmed Type 2 diabetes mellitus with hypercholesterolemia / SNOMED CT 470358718 / Confirmed linked DM with hypercholesterolemia per outpatient CDI policy. Type 2 diabetes mellitus with stage 3 chronic kidney disease / SNOMED CT 938285870 / Confirmed linked DM with CKD (more content not included)... Normal [facility] Comment on above: Result Comment: Elec tronically Signed By: Prashant PIMENTEL, Gary Gomez\.br\Date and Time Signed: 01/06/23 09:13 EDT HIPAA Forms Officeon 023 HIPAA Forms Office [id number] [facility] [id number]#1.00 TIFF Normal [facility] Legal Correspondence Officeo n 01-06-2023 Legal Correspondence Office [id number]#1.00 TIFF Normal [facility] Legal Correspondence Office [id number]#1.00 TIFF Normal [facility] Office/Clinic Note-Physician on 01-06-2023 Office/Clinic Note-Physician [id number]#1.00 TIFF Normal [facility] Patient Correspondenceon Patient Correspondence [id number]#1.00 TIFF Normal [facility] Patient Correspondence [id number]#1.00 TIFF Normal [facility] Patient Correspondence [id number]#1.00 TIFF Normal [facility] Patient Correspondence [id number]#1.00 TIFF Normal [facility] Patient Correspondence [id number]#1.00 TIFF Normal [facility] Patient History Officeon Patient History Office [id number]#1.00 TIFF Normal [facility] Radiology Outside Office Correctional Nurse yon 01-06-2023 Radiology Outside Office Copy [id number]#1.00 TIFF Normal [facility] Consent for Treatmenton 12-14 Consent for Treatment [id number]#1.00T IFF Normal [facility] MRI Pelvis (Bony) w/o contra ston 12-31-2022 [...] REPORT Dictated: 12/31/2022 10:47 am Jalil Booth MD. Signed (Electronic Signature): 12/31/2022 10:47 am Signed by: Jalil Booth MD Transcribed by: KATEY Technologist: NUBIA Normal [facility] RAD - MRI Screening Formon 1 RAD - MRI Screening Form [id number]#1.00 TIFF Normal [facility] Physician Orderon 12-24-2022 Physician Order [id number] 004 [id number]#1.00T IFF Normal [facility] Physician Order [id number]#1.00T IFF Normal [facility] Outside Records Officeon Outside Records Office [id number]#1.00 TIFF Normal [facility] Referrals Officeon Referrals Office [id number] 021 [id number]#1.[address] [facility] Consultation Noteon 12-23-19 Consultation Note [id number] 002 [id number]#1.00T IFF [facility] Physician Orderon 12-22-2022 Physician Order [id number]#1.[address] 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 Type 2 diabetes mellitus with hypercholesterolemia [...] Appointments Thursday 8:00 AM EST With: Where: [facility] Primary Care Normal [address] [place] [address]- \.br\ You Need to Schedule the Following Appointments\.br\ Follow Up with RUSSELL SHEPHERD FAAFP, Christopher Montenegro, CHERISE, PED When: In 3 months\.br\ Where:\.br\ [address], [address]\.br\ [place] [address].br\ \.br\ Medications\.br\ What How Much When Why Instructions\.br\ New doxycycline (doxycycline hyclate 100 mg Cap) 1 Capsules By Mouth 2 times a day Venous stasis ulcer Refills: 1 Pickup at [facility] #[id number]\.br\ Unchanged amlodipine (amLODIPine 5 mg Tab) 1 [...] instructions Dx: E11.9 Directions: BID \.br\ Unchanged Misc Prescription (Test strips) See instructions Dx: E11.9 [...] Mouth Every day\.br\ Pharmacy Information\.br\ [id number]: [address] [place], [place] [id number] [phone]\.br\ Medications and Immunizations Administered\.br\ Not Given\.br\ influenza virus vaccine, inactivated, Patient Refuses\.br\ Allergies\.br\ Aldactazide (Hives)\.br\ Cardura (Unknown)\.br\ Diovan (Unknown)\.br\ Glucophage\.br\ Hytrin\.br\ Prinivil\.br\ Zestril (Diarrhea)\.br\ hydrochlorothiazi de-lisinopril (Diarrhea)\.br\ Problems\.br\ Ongoing - Any problem that you are currently receiving treatment for.\.br\ BRBPR (bright red blood per rectum)\.br\ Breast cancer screening by mammogram\.br\ 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 \.br\ Take or apply gnoo-kix-kvkofad and prescription medicines only as told by [...] cannot use soap and water, use hand malter operator.\.br\ ? \.br\ Change your bandage as told [...] for help if you feel david Elkins [facility] [facility]Clini c Del[place]on 12-18-2022 Family Medicine Office/Clinic Note Chief Complaint [...] ER daily. 3. Long-term insulin use (Z79.4: roasterman (current) use of insulin) Tresiba 50 units [...] in 6 (more content not included)... Normal [facility] Comment on above: Result Comment: Elec tronically Signed By: RUSSELL SHEPHERD FAAFP, Christopher Montenegro\.maria teresa\Date and Time Signed: 12/18/22 09:05 EDT Patient [...] at home: Medicines ? Take or apply yirw-aiz-tmdxgwr and prescription medicines only as told by [...] cannot use soap and water, use hand malter operator. ? Change your bandage as told by [...] day for signs of infection. ? Take yzgi-syp-uslfogh and prescription medicines only as told by your doctor. ? Keep all follow-up visits as told by your doctor. This is important. This information is not intended to replace advice given to you by your health care provider. Make sure you discuss any questions you have with your health care provider. Document Revised: 12/26/2021 Document Reviewed: 12/26/2021 ElseVSS Monitoring Patient Education ? [address]22 eÇift. [facility] Consultation Noteon 12-16-19 Consultation Note [id number]#1.00C D:127 Normal [facility] MRI Spine Lumbar w/o Contras ton [...] Technologist: NUBIA Technical Comments None [facility] Consent for Treatmenton 11-15 Consent for Treatment [id number]#1.00C D:[address] [facility] RAD - MRI Screening Formon 0 12-08-2022 RAD - MRI Screening Form [id number]#1.00 CD:[address] [facility] Physician Orderon 11-26-2022 Physician Order [id number]#1.00CD :[address] [facility] Physician Order [id number]#1.00CD :[address] [facility] BD Bone Density DEXAon 11-25 [...] Jalil Booth MD Transcribed by: KATEY Technologist: TRISTAN Gonzalez [facility] MA Mamm Screen w/CAD if perf and [...] very important to your health. The current [employer] and National Comprehensive Cancer [...] Kodak Khan M.D. Transcribed by: KATEY Technologist: AP Assessment: BI-RADS Category 2-Benign finding Recommendation: Normal interval follow-up Normal [facility] Consent for Treatmenton 11-14 Consent for Treatment [id number]#1.00C D:127 Normal [facility] Consultation Noteon 11-24-19 Consultation Note [id number]#1.00CD :127 Normal [facility] Consultation Noteon 11-14-19 Consultation Note [id number]#1.00C D:127 Normal [facility] Family Medicine Office/Clini c Noteon 11-06-2022 Family [...] following symptoms? Chest pain? no Palpitations? no DALIEY/SOB? no Orthopnea? no PND? no Edema? no Have you had any recent cardiopulmonary testing? no L hip pain after walking 10 min and some weakness, I take WC to [place] so I walk and do Wheel Chair. Pain stays in the hip. After walking approximately 10 minutes at [place] patient needs to get into wheelchair secondary to the pain in her left hip. Patient reports no poor color no radiation of pain into left thigh and nor leg nor foot. Diabetes is now managed per Dr. Ruggiero, her last A1c at Dr. Ruggiero's office was 8.9 and the 1 prior to that was 13. Dr. 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 Physical therapy [facility]. Patient defers x-rays and well allow access orthopedics to perform at time of evaluation. Discussed possibility of bursitis and possible injection under fluoroscopy via orthopedics Ordered: [facility] External Ambulatory Referral [facility] Outpatient Physical Therapy Evaluate Patient, Develop a Plan of Care, & Implement Plan (more content not included)... Normal [facility] Comment on above: Result Comment: Elec trojinally Signed By: Christopher WELLS DO, FAAFP.maria teresa\Date and Time Signed: 11/06/22 08:56 EDT Patient [...] these instructions at home: Medicines ? Take mmgs-gya-pjjostp and prescription medicines only as told by [...] provider. Document Revised: 02/25/2022 Document Reviewed: 02/25/2022 Elsevier Patient Education ? 2022 [employer] 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 Ordering Provider: Renetta Barahona APRN Date of [...] Miguel Membreno M.D.11/04/2022 1:09 PM Dictation Location: [facility]-PC1 Tech: Adina Zuñiga Transcribed By: RICH 11/04/22 1309 Dictated By: Miguel Membreno MD 11/04/22 1307 Signed By: 11/04/22 1309 [facility] US ankle/arm indiceson 11-03 US ankle/arm indices [facility] [place] [address] Ultrasound Report Signed Patient: Evon Corcoran MR#: [id number] : 1950 Acct:[id number] Age/Sex: 72 / F ADM Date: 11/03/22 Loc: [facility] Room: Type: [facility] Attending Dr: Miguel Membreno MD Ordering [...] Miguel Membreno M.D.11/03/2022 10:26 AM Dictation Location: [facility]PC1 Tech: Melita Pike Transcribed By: RICH 11/03/22 1026 Dictated By: Miguel Membreno MD 11/03/22 1024 Signed By: 11/03/22 1026 [facility] CHEMISTRYOrdered By: Level[employer] SYSTEM on 10-31-2022 Albumin [Mass/Vol] 3.4 g/dL Normal 3.3 - 5.0 gm/dL F [facility] Remisol Anion gap [Moles/Vol] 11 mmol/L Normal 6 - 16 mEq/L FT Remisol Calcium [Mass/Vol] 8.4 mg/dL Low 8.9 - 11.1 mg/dL FT Remisol Chloride [Moles/Vol] 104 mmol/L Normal 101 - 111 mmol/L FT Remisol CO2 [Moles/Vol] 27 mmol/L Normal 21 - 31 mmol/L FT Remisol Creatinine [Mass/Vol] 1.3 mg/dL Normal 0.5 - 1.3 mg/dL FT Remisol GFR/1.73 sq M.predicted among non-blacks MDRD (S/P/Bld) [Vol rate/Area] 43 mL/min/1.73 m2 Low >=59mL/min/1.73 m2 [facility] Chem S Glucose [Mass/Vol] 316 mg/dL High 55 - 199 mg/dL FT Remisol Phosphate [Mass/Vol] 3.8 mg/dL Normal 1.9 - 4.6 mg/dL FT Remisol Potassium [Moles/Vol] 4.2 mmol/L Normal 3.5 - 5.3 mmol/L FT Remisol Sodium [Moles/Vol] 138 mmol/L Normal 135 - 145 mmol/L FT Remisol Urea nitrogen [Mass/Vol] 28 mg/dL High 5 - 21 mg/dL FT Remisol Urea nitrogen/Creatinine [Mass ratio] 22 mg/mg High 10 - 20 [facility] Remisol CHEMISTRYOrdered By: Jeniffer Rosas on 10-31-2022 Albumin Elph (U) [Mass fraction] 8.4 mg/dL Invalid Interpretation Code FT Remisol Creatinine (U) [Mass/Vol] 132.6 mg/dL Invalid Interpretation Code [facility] Remisol U Prot/Creat Ratio 63.30 mg/gm Cr Normal 0.00 - 200.00 mg/gm Cr FT Remisol Consent for Treatmenton 10-14 Consent for Treatment [id number]#1.00C D:127 Normal [facility] Physician Orderon 10-31-2022 Physician Order [id number]#1.00 CD:127 Normal [facility] Renal Panelon 10-31-2022 Albumin [Mass/Vol] 3.4 g/dL Normal 3.3-5.0 [facility] Comment on above: Performed By: #### 1 [id number], [id number] ####[facility] [address] [place] [address] Anion gap [Moles/Vol] 11 mmol/L Normal 6-16 [facility] Comment on above: Performed By: #### 1 [id number], [id number] ####[facility] [address] [place] [address] Calcium [Mass/Vol] 8.4 mg/dL Low 8.9-11.1 [facility] Comment on above: Performed By: #### 1 [id number], [id number] ####[facility] [address] [place] [address] Chloride [Moles/Vol] 104 mmol/L Normal 101-111 [facility] Comment on above: Performed By: #### 1 1370865, [id number] ####[facility] [address] [place] [address] CO2 [Moles/Vol] 27 mmol/L Normal 21-31 [facility] Comment on above: Performed By: #### 1 [id number], [id number] ####[facility] [address] [place] [address] Creatinine [Mass/Vol] 1.3 mg/dL Normal 0.5-1.3 [facility] Comment on above: Performed By: #### 1 7976689, [id number] ####[facility] [address] [place] [address] Glucose [Mass/Vol] 316 mg/dL High 55-199 [facility] Comment on above: Result Comment: If t his glucose result represents a fasting glucose, interpretation should refer to the following reference range: 55-99 mg/dL Performed By: #### 1 [id number], [id number] ####[facility] [address] [place] [address] Phosphate [Mass/Vol] 3.8 mg/dL Normal 1.9-4.6 [facility] Comment on above: Performed By: #### 1 [id number], [id number] ####[facility] [address] [place] [address] Potassium [Moles/Vol] 4.2 mmol/L Normal 3.5-5.3 [facility] Comment on above: Performed By: #### 1 [id number], [id number] ####[facility] [address] [place] [address] Sodium [Moles/Vol] 138 mmol/L Normal 135-145 [facility] Comment on above: Performed By: #### 1 3027806, [id number] ####[facility] [address] [place] [address] Urea nitrogen [Mass/Vol] 28 mg/dL High 5-21 [facility] Comment on above: Performed By: #### 1 4742454, [id number] ####[facility] [address] [place] [address] Urea nitrogen/Creatinine [Mass ratio] 22 No Units High 10-20 [facility] Comment on above: Performed By: #### 1 1819540, [id number] ####[facility] [address] [place] [address] U Protein/Creat Ratioon 10-14 Albumin Elph (U) [Mass fraction] 8.4 mg/dL Invalid Interpretation Code [facility] Comment on above: Result Comment: The reference range and other method performance specifications have not been established for this test; results should be integrated into the clinical context for interpretation. Performed By: #### 1 [id number], [id number] #### [facility] [address] [place] [address] Creatinine (U) [Mass/Vol] 132.6 mg/dL Invalid Interpretation Code [facility] Comment on above: Result Comment: The reference range and other method performance specifications have not been established for this test; results should be integrated into the clinical context for interpretation. Performed By: #### 1 [id number], [id number] #### [facility] [address] [place] [address] U Prot/Creat Ratio 63.30 mg/gm Cr Normal .00-200.00 [facility] Comment on above: Performed By: #### 1 [id number], [id number] #### [facility] [address] [place] [address] URINALYSISOrdered By: Rosa Chacon on 10-31-2022 Bacteria [...] AM) Normal Negative [facility] UA Auto SS [place].plasma/Lith ium.RBC (Bld) [Mass ratio] 0-3 /HPF Normal [...] AM) Invalid Interpretation Code 1.005 - 1.030 [facility] UA Auto SS UA Spec Desc Clean Catch (10/31/22 7:33 AM) Normal [facility] UA Auto SS Urobilinogen Qn (U) 0.8859477 {Donell'U}/dL Normal 0.0 - 1.0 EU/dL [facility] UA Auto SS WBC Auto Ql (U) 1+ *ABN* (10/31/22 7:33 AM) Invalid Interpretation Code Negative [facility] UA Auto SS WBC LM.HPF (Urine sed) [#/Area] 6-15 /HPF Invalid Interpretation Code 0-5/HPF [facility] UA Auto SS Urinalysison 10-31-2022 Bacteria LM Ql (Urine sed) 1+ /HPF Abnormal Trace [facility] Comment on above: Performed By: #### 1 [id number], [id number] #### [facility] [address] [place] [address] Bilirubin Ql (U) Negative Normal Negative [facility] Comment on above: Performed By: #### 1 6635541, [id number] #### [facility] [address] [place] [address] Clarity (U) CLEAR Normal Clear [facility] Comment on above: Performed By: #### 1 7011235, [id number] #### [facility] [address] [place] [address] Color (U) YELLOW Normal Yellow [facility] Comment on above: Performed By: #### 1 [id number], [id number] #### [facility] [address] [place] [address] Epithelial cells.squamous LM.HPF (Urine sed) [#/Area] 0-2 Normal 0-2 [facility] Comment on above: Performed By: #### 1 1017964, [id number] #### [facility] [address] [place] [address] Glucose Test strip (U) [Mass/Vol] 2+ Abnormal Negative [facility] Comment on above: Performed By: #### 1 [id number], [id number] #### [facility] [address] [place] [address] Hemoglobin Ql (U) Negative Normal Negative [facility] Comment on above: Performed By: #### 1 [id number], [id number] #### [facility] [address] [place] [address] Ketones (U) [Mass/Vol] Negative Normal Negative [facility] Comment on above: Performed By: #### 1 [id number], [id number] #### [facility] [address] [place] [address] [place].plasma/Lith ium.RBC (Bld) [Mass ratio] 0-3 Normal 0-3 [facility] Comment on above: Performed By: #### 1 7441367, [id number] #### [facility] [address] [place] [address] Nitrite Ql (U) Negative Normal Negative [facility] Comment on above: Performed By: #### 1 [id number], [id number] #### [facility] [address] [place] [address] pH (U) 6.0 [pH] Invalid Interpretation Code 5.0-9.0 [facility] Comment on above: Performed By: #### 1 2315886, [id number] #### [facility] [address] [place] [address] Protein (U) [Mass/Vol] Negative Normal Negative [facility] Comment on above: Performed By: #### 1 6915780, [id number] #### [facility] [address] [place] [address] Specific gravity (U) [Rel density] 1.025 Invalid Interpretation Code 1.005-1.030 [facility] Comment on above: Performed By: #### 1 1014349, [id number] #### [facility] [address] [place] [address] Type of Urine collection method Clean Catch Normal [facility] Comment on above: Performed By: #### 1 4395560, [id number] #### [facility] [address] [place] [address] Urobilinogen Qn (U) 0.2 {Donell'U}/dL Normal 0.0-1.0 [facility] Comment on above: Performed By: #### 1 7837532, [id number] #### [facility] [address] [place] [address] WBC Auto Ql (U) 1+ Abnormal Negative [facility] Comment on above: Performed By: #### 1 8367267, [id number] #### [facility] [address] [place] [address] WBC LM.HPF (Urine sed) [#/Area] 6-15 Abnormal 0-5 [facility] Comment on above: Performed By: #### 1 9948713, [id number] #### [facility] [address] [place] [address] eGFRon 10-31-2022 GFR/1.73 sq M.predicted among non-blacks MDRD (S/P/Bld) [Vol rate/Area] 43 mL/min/1.73 m2 Low >=59 [facility] Comment on above: Order Comment: Order added by Discern Expert. Result Comment: Slip Cover Sewer jin kidney disease could be indicated at eGFR's of less than 60 mL/min/1.73m2. Kidney failure is indicated at less than 15 mL/min/1.73m2. Performed By: #### 1 2385899, [id number] ####[facility] [address] [place] [address] RAD - Ultrasound Reporton RAD - Ultrasound Report [id number]#1.00C D:127 Normal [facility] Retail - Clinical Noteon Retail - Clinical Note [id number]#1.00C D:127 Normal [facility] VAS LAB Carotid Artery Dupl ex Ultrasounon 09-17-2022 VAS LAB Carotid Artery Duplex Ultrasoun [address], [facility] [address] Vascular Lab Report Carotid Artery Duplex Ultrasound Patient Name: EVON Mckeon Physician: [id number] Fariha Guidry MD, [facility] Study Date: 09/17/2022 Referring FARIHA GUIDRY Physician: MRN/PID: [id number] PCP: Christopher Wells DO Accession/Order#: [id number] CC Report to: Date of : 1950 Technologist: PRAVEENA Gender: F Technologist 2: Admission Status: Outpatient Location Performed: [facility] Diagnosis/ICD: Q48-Rurzlwamo and giddiness; I73.9-Peripheral vascular disease, unspecified Indication: CAD, PTCA, High Risk Medication Use, Vascular Disease, Diabetes, HTN, Hyperlipidemia, CKD-Stage III, DVT, MORALES, Obesity Procedure/CPT: 07782 Cerebrovascular Carotid Duplex scan complete-64346 CONCLUSIONS: Right Carotid: Findings are consistent with [...] cm/s Right Left ICA/CCA Ratio 1.4 2.0 85578 Fariha Guidry MD, FACC Final Normal [facility] VASC LAB Carotid Artery Dupl ex Ultrasoundon 09-17-2022 US.doppler Carotid arteries -[facility] Heart-Sandu feliz [address] DO Work Phone: Gastroenterology [...] (bright red blood per rectum) CAD in [place] artery Change in bowel habits Chronic renal impairment, stage 3a Claudication of both lower extremities Colon polyp Diarrhea Familial hypercholesteremia Hemorrhoids History of colon polyps History of DVT (more content not included)... Normal [facility] Comment on above: Result Comment: Elec tronically [...] Bulgur wheat. Millet. Quinoa. Bran muffins. Popcorn. Jasper wafer crackers. Meats and other proteins [place] beans, kidney beans, and chase beans. Soybeans. [...] Cream cheese. Sour cream. Fats and oils [place]. Beverages Soft drinks. Other foods Cakes and [...] provider. Document Revised: (more content not included)... Normal [facility] Medication Refillon 08-23-19 Medication Refill [id number]#1.00C D:127 Normal [facility] CBC w/Indiceson 08-01-2022 Erythrocyte distribution width (RBC) [Ratio] 14.0 % Normal 10.9-14.2 [facility] Comment on above: Performed By: #### 1 [id number], [id number] #### [facility] [address] [place] [address] Hematocrit (Bld) [Volume fraction] 39.9 % Normal 34.0-46.0 [facility] Comment on above: Performed By: #### 1 4862440, [id number] #### [facility] [address] [place] [address] Hemoglobin (Bld) [Mass/Vol] 12.7 g/dL Normal 12.0-16.0 [facility] Comment on above: Performed By: #### 1 4904783, [id number] #### [facility] [address] [place] [address] MCH (RBC) [Entitic mass] 27.9 pg Normal 27.0-34.0 [facility] Comment on above: Performed By: #### 1 0079375, [id number] #### [facility] [address] [place] [address] MCHC (RBC) [Mass/Vol] 31.8 g/dL Normal 31.4-36.0 [facility] Comment on above: Performed By: #### 1 8726876, [id number] #### [facility] [address] [place] [address] MCV (RBC) [Entitic vol] 87.6 fL Normal 80.0-100.0 [facility] Comment on above: Performed By: #### 1 0197149, [id number] #### [facility] [address] [place] [address] Platelet mean volume (Bld) [Entitic vol] 10.5 fL Normal 6.4-10.8 [facility] Comment on above: Performed By: #### 1 8984638, [id number] #### [facility] [address] [place] [address] Platelets (Bld) [#/Vol] 227.0 E9/L Normal 150.0-500.0 [facility] Comment on above: Performed By: #### 1 6392123, [id number] #### [facility] [address] [place] [address] RBC (Bld) [#/Vol] 4.6 E12/L Normal 4.3-5.9 [facility] Comment on above: Performed By: #### 1 9268871, [id number] #### [facility] [address] [place] [address] WBC corrected for nucl RBC Auto (Bld) [#/Vol] 7.3 E9/L Normal 4.0-11.0 [facility] Comment on above: Performed By: #### 1 5961747, [id number] #### [facility] [address] [place] [address] Consent for Treatmenton 07-14 Consent for Treatment [id number]#1.00C D:127 Normal [facility] Lipid Panelon 08-01-2022 Cholesterol [Mass/Vol] 128 mg/dL Normal 120-200 [facility] Comment on above: Performed By: #### 1 9133155, [id number] #### [facility] [address] [place] [address] Cholesterol in HDL [Mass/Vol] 47 mg/dL Invalid Interpretation Code [facility] Comment on above: Result Comment: HDL > or equal to 60 mg/dL: Low cardiovascular risk HDL < 40 mg/dL : High cardiovascular risk Performed By: #### 1 7910213, [id number] #### [facility] [address] [place] [address] Cholesterol in LDL [Mass/Vol] 59 mg/dL Normal <=129 [facility] Comment on above: Performed By: #### 1 3232677, [id number] #### [facility] [address] [place] [address] Cholesterol in VLDL [Mass/Vol] 27 mg/dL Normal 7-40 [facility] Comment on above: Performed By: #### 1 8217325, [id number] #### [facility] [address] [place] [address] Triglyceride [Mass/Vol] 133 mg/dL Normal <=149 [facility] Comment on above: Performed By: #### 1 3770424, [id number] #### [facility] [address] [place] [address] Physician Orderon 08-01-2022 Physician Order [id number]#1.00 CD:[address] [facility] Reminderson 2022 Reminders - From: [...] seen on 06/11/[address] [facility] Retail - Clinical Noteon Retail - Clinical Note [id number]#1.00C D:[address] [facility] Ambulatory Visit Summaryon 0 06-11-2022 [...] AM EDT With: Linda Solorio CNP Where: [facility] Normal [facility] Gastroenterology Office/Clin ic Noteon 06-11-2022 Gastroenterology Office/Clinic [...] was previ (more content not included)... Normal [facility] Comment on above: Result Comment: Elec tronically Signed By: Linda Solorio CNP\.br\Date and Time Signed: 06/11/22 09:30 EDT Patient Educationon 06-12-19 Patient Education [facility] High-Fiber Diet Fiber, also called dietary fiber, [...] serving. ? Talk with a diet and nutritional assistant (dietitian) if you have questions about [...] Bulgur wheat. Millet. Quinoa. Bran muffins. Popcorn. Jasper wafer crackers. Meats and other proteins [place], kidney, and chase beans. Soybeans. Split peas. [...] Cream cheese. Sour cream. Fats and oils [place]. Beverages Soft drinks. Other foods Cakes and [...] 03/02/2006 Document Revised: 01/04/2018 Document Reviewed: 01/04/2018 [employer] Patient Education ? 2019 [employer] Gastro (more content not included)... Normal [facility] Reminderson 06-11-2022 Reminders - From: Linda Solorio CNP To: Doretha Henry; Sent: 06/11/2022 09:24:04 EDT Show up: 06/11/2022 09:24:00 EDT Subject: Ambulatory Reminder Reminder/Recall Colonoscopy in 2029. [address] benson 05/21/2029 From: Doretha Henry To: [facility] - Reminders/Recalls; Sent: 06/11/2022 12:14:24 EDT ! Show up: 04/16/2029 12:14:00 EST Due Date/Time: 05/14/2029 12:14:00 EST Normal [facility] IntraOperative Documentson 0 05-30-2022 IntraOperative Documents [id number] D:127 Normal [facility] Result Letter Officeon 05-30 Result Letter Office May 30, 2022 [address]AN [address] [place] [address] EVON CORCORAN 1950 Below is a summary [...] letter prior to your next due date. [facility] [phone] Normal [facility] Postoperative Documentson Postoperative Documents [id number] D:127 Normal [facility] Coding Summary.on 05-26-2022 Coding Summary. CD:[id number]:[id number] Gh0 bWw+PGhlYWQ+LE4NWJJtF38 tlBDusE9cJ6QTFKpRKgwzJA ZLSPhMGdHlptIpQE8rwTRqH XJu IC8+ZT7bAIQwKrqilITvc6O 3vFK9H59muz4yFStvdRB5HD UyWeRnuhptf9ryiGz6WYlzC mluOyBt JPHdyO58JIC0aQ69Vz45hSF tgFOwl4mvuWb0TcFdMCYyZL Q6uGunHVsud4EfORIgB34bz BGbk6P1 VHFqwUhaxVDzNkOrzCV2eL3 gOYpflotxc5veirsxNci5op 60cKDwr2E3mIK5X1BpgnE1C GJvbGQg QxxdfCFAxT1jtnful7tvhdu gIdWoGVIfJOi0SPz9JBHdmG ndFwZeHX88EFC6PNJypuSwB 2FsLWFs wGpoLeW7v9C4Pr5VB4ECAbn sW5GCSEAOMOgbkIY+PC90cj 85Y2QxMgvcSfy0HUCfTWY1r WA9mQ1e FEAvHHziq7A5uTY5C5GzymK eng0ip8zcNALzKZcrX58dcG Lws5E8BOXjbCZ6FJRahTkjV iBzaG93 Oyc+EJPfaSjop1YbMajhz7k rc1dzlZl7BwsvTXBmhgWynX yhRZM8c2CvCc3kXORsyFI3d GG3rD5u DkQcYsW1OPdqM736XrLnoJV mYnuzA21oI7BufOY+PHRyPj c6OTYwzUqkNW3eS7RdSOFlm mctbGVm cPfsPX6eQLOoijvpERUxcW2 fHFMuZ7h1XnCgKvG7NLtbV2 GfDKCgwkxyGs35sF0oVzBhQ jX9JHqv C9QtrzI1PSBdpAFwQOynZHE 5N99nx2J7VPLlGIBmBTL9sL H8tR5bkFeqsclkfRCquCwpj mVydGlj NAalWXihG849IKAqmKneYlZ vZGluZyBEYXRlOiAgMDMvMT MvMjAyMzwvdGQ+BRPaLPU0x WxlPSAn wCHeULcjAi6lqXsqaTrlSU4 uYFWrshlwAZMyxL2hVPJvyA SujVbtEE3qGSTzxrftm754G iAxMHB0 XVBipKRaN8OfgV9iQbMzGTL mLPYjV0JeiASnRWzzT521GB suOeG4KBWndaOhR3IaPIJcg WduOiB0 p7I3Vz2Gm7ZgytgjD4PxjZO rQhYpBkmtFCv0M5KjAvtzfP I+AW28IDIsBT78XYx6CBL1r WxlPSdi ZDRhX3DpqF3qQjOxQGTbXHP kOyc+PHRhYmxlIHdpZHRoPS stCCJxMiBcrQeiSO5rGi4bB GVyLWNv lHujlIBzPeDxh7owWEOnAMn eTK1smBdlX8HapFI8OZPrf6 e1Fd40A91nI1DwuQO+PGNvb EJ6fTG5 yW7oRyUvShW0UPvlB698DsN trZVpAnofr1oci7wbeJh7Qr G8VGWofuTktNraGLU6c2GsF d43N89u IHdpZHRoPSIxNSUiIHZhbGl yus3npK6lVg7+DVVxnFX8cP O0pY8bUwUbNcG0VIbzU761O nRvcCIv Jzqen6fla3kcdRw5KnGrAHE eoeTikCrvQJK7u9PcFz16U9 EmdKlzp0GmRnz2xb06oYPrg 1A5sGR8 Z9UvMNWodbjihTPwhVjbRH3 uFTNcjbslGFZrhZ1zNUVhW8 p2RjEuGcJ3BLmqC8PxdnB5N GJvbGQg QAJzcXNXzH2iegfjh9yhnio eNsPrRGWcLJz9CUv8CTBxoM zoDeLeVNQ0PlH1WCZ2lQTzx X6njZne ufozdF2tFgt+BHW4vSBlgTU ZHB1dQsldqFF+JPHhECY9pS jpRMnoPHUwyJ5aCAMrI7u4C iAwLjA1 PRqdC3SrnsQ6TGHdpOHlAVW syFVGuU9gmiqgj1xxkfjuTv CzDVLwJPl7YGu9AALwfIuhX iBsZWZ0 CbS7ZTH4eALjnV7bvGvyspi qqO5eDnm+LauyrHoxMAR2FD t2G5KaFfa1QXOdhHncLO9sx GFkZGlu Nh0vxXmeyUuoYM1jAMHycwb aa134BiZby5agJCKnuJCqIV oxZAZ4U01ce9Q8ADDcXFDhM IC0nDJ0 zK8cmCtzbbpdaCOxfQpxhmD kyDbuNSmyEAbbT252HMSwwH izVbAsTSw3X7TeAqd5IATnm JnoRZ8e vABnQBsoXm5ayMmvfAkkAD4 nHCBjpwdpf978DxDis1iqCQ LrlQLvLUwwFCU5M44hb4J8F CMwMDAw IBG4vGE9hR4ppLsngadkjTF mdDsgdmVydGljYWwtYWxpZ2 85NKFsiNjbSjOygLy2Z3ZcD ir7CUJl pYdeQN0oeEKvJThsTb7pePm pbPzgEC9wVVHolesez513Iy Iua4xyQXDedMHkXFqoUMC3X 98zh3Z6 EBBpGOZxBHL5tJG0jW7lpPs nbjogbGVmdDsgdmVydGljYW rvDIqhO947PBXabZohZcXtm GllbnQg YJiqUKw4L8LbDilvoJU+PC9 0QNQcPE24wCTciUYyn1qcwH h6JgWlZLCmMIE7wDioSIvyv 3JkZXIt S68bpQSpa6U1FLXshEltwPG jAxJmyYA8kZ4fAIspbrnfx2 bcwyetSydgt9ixjd63pT52G 29sIHdp ZHRoPSIzMCUiIHZhbGlnbj0 piN2dLu2+AKEcxGJ8yEC0tL 1oOEYiWhH5EXalM742YpUdy CIvPjxj z5thx8jtxQw4RuF1CZEwyeH vmAilAEC8a1RbCl26S97uSO dpZHRoPSIyMCUiIHZhbGlnb u6eqT4j Ii8+PVVlwNE1nUB9wV7wQgN lEnM9DSliP503RaWucLJrRo scO48pO8CaeCC+DJBqTci2H CBzdHls BY0hnBPeEQygGb8tQDK6CnL vDhSmXUdcL4TeEFZcgsjpmm cdjKX0WELkUHMgyX00Xg7sv DogMTBw qSSYrT0cmrsnr3rzkpgaDzP oILCxKGa1YXj1IBSfeLnlIr LyZAT1OpA5ZHV7gRSjtT3kn Glnbjog fK6aZ6SrHSLirgnrSv95xS8 iOoHdEyF4MWgpNgh+VFJVTV SSG9UZKUQGQQWXPcNHBI31L I31nUAh b4P7vCU2P7NkLVUozxxmbrd ixKG2RSIxBMQkfX44zCOqOT kjVs2ie3V2v785UZKnMFYvz I84Ya6a gGkwWNDveRSLaK8hbuhic0g aizenRbGzFQAvGFo1KEj7JE KqxVtvJnUyIGQ2PhZ1LKI9e WFyzK0n lPuruwudoG7fKnd+MDQvMTE eBOy4WNlytOE+RNVxOVR1nF iqILjuNEDatN7vNEDgF7g3C iAwLjA1 CMxdE4CvSRKufjneCh60bA6 xIlVcFfR4ZClwG1ZtgmE3UW JabWQsHYcgERD2I27tc9U6E CMwMDAw LBF8dJE7xA8zrIuaxskjdFN mdDsgdmVydGljYWwtYWxpZ2 46IHRvcDsnPjcyIFllYXJzP Z23CA33 jNMgl7N6kQC0H5WjQDQdrkc pvonjzIY1CWSyUQQuuY71gI DxSVqbRh2hm3H8j082MBZgT DUwaW47 Wz1aoYbiJLBznGNCkX6ehkm nh7hlcekdFbWwQTQqFTp9PO g8VKFrmHsnLyFbHTS7HzL1K UI5fEQl xD3umXjdkgmxvT2iSmy+RmV sKOthBW50FJ26tEJgk7B7uD U9X1GzDGFfjcmmpjjyuCJ0P DAuMDUw tL48rIMkJEakDx8fp7Q5o85 8PDFfDDZaxA79Ik3lfHcuAY EucLRHjP5xxrxvp2jgzblqM zAwMDAw PWa4WNc9IFIfhXicCkZgDPY 7EpN7XQU8cRCpdE8upIryyr tgbM6oWsl+S5O7fIJ2gBTcp DwvdGQ+ RO51up99T1QyDuceKkg5ZTM fABL8aNO7yB8qNVPbUHrov0 D9xQF0J9GharDcwr8jy5huD XBzZTog I70zlKTuj1U6THHlkJM9XFR voHdrMtSakW67Wtv+PGNvbG kam7XqJjkvb8ywa8chhSj3I jMwJSIg xeKdjQtxGZF4g4ShSm29Y66 sIHdpZHRoPSIzMCUiIHZhbG zbxg7imH9oYq7+OGPtyVP2c HR0gC6g LeLgLsQ2UVjaK120EfNrfWV xPuzqu7xne8ugwKh3HpApAI BmxaBeyNgcYMA7x0CtKp61W 2NvbGdy y6WwMpr3xh34pCNaw6S5xYO 5X8LeGDFpuiwovDBmkIefKW 7zIMTdqfwtCPSajZ8dPRNdP 0o3JiIl YcA8VEecX0XwwjR9WPBabDC eUICtwBVItC7tgaabz7dqnf lnDcUrSOFcRLj1MFa2GGIwx WduOiBs ROE4OcO2FCX6vIQdxM6doZs ufyplvM9xGhu+GTq4d9vntJ XoDJ7fgSK1HE28IS39fSBci 8Y3jBL3 L1KgVXUabclynvhhgCK7QZN wWGYtfC48Dc5gbBlsYy4nHD YkEYT1LJGdwHHbE2DhgV5qK iAjMDAw PQJgN5OacUYrSPelW364GHl mAuI9XYCpgxUhW8AtGNChuW bfDwO9q6E8Gp8CRY88CS29E B88pRAe r8S0lIN9C5XdKUEyrheyrox kfIE1DFMaAGZfqS80Zz5mqN qxOk1eEIFoWHB7WOKzjRPcO 8VdpD4s VbXtDOXxEUSmF3CeoEFsTUb qK355IXyjItD7SYUrljJzI5 AjQCSzlBdbHrG1r1D9Ow5CZ l80WR50 DE17nVSpd2C6iUM9I8XbPYK undjpnxdsuCW3SVMsMANfnX 16Yd2naMulVl4kPVOcDUA4Y FRpbWVz N0PxaU4vVoRkLXQwLFWzJ6M giQUcURlkF875LIkmMgZ8ZS SqmrDmO5UiUHUbaTtuRlU3t 1M5Du9U EClpgqr6E9WzVyklcGF+PC9 0YCBoBB33rYMadXFdt7rchZ i2DfLeTWRhXOZ2hXbeUPepw 3JkZXIt Y29s (more content not included)... Normal [facility] Main OR Intraoperative Recor don 05-26-2022 Main OR Intraoperative Record IntraOp Document Type FT Summary Primary Physician: Luis BENSON MD Finalized Date/Time: 05/26/22 08:45:38 Pt. Name: EVON CORCORAN /Sex: 1950 Female Med Rec #: [id number] Physician: Luis BENSON MD Financial #: [id number] Pt. Type: O Room/Bed: / Admit/Disch: 05/21/22 11:58:42 - 05/21/22 23:59:59 Institution: Case Times FT Entry 1 Patient Times In Room 05/21/22 13:14:00 Out Room 05/21/22 13:33:00 Procedure Times Start 05/21/22 13:19:00 Stop 05/21/22 13:29:00 Anesthesia Times Start 05/21/22 13:14:00 Stop 05/21/22 13:33:00 Time at [facility] 05/21/22 13:22:00 Last Modified By: Dennise ECHAVARRIA, Hiral 05/21/22 13:33:41 General Comments: 05/26/22 Chart opened to review and send charges [facility]FA Case Attendance FT Entry 1 Entry 2 Entry 3 Case Attendee Noé Johnston RN, Esha Diane Role Performed Anesthesiologist Material Handling Crew Supervisor - Primary Staff - Other Vibration Technician Time In 05/21/22 13:14:00 05/21/22 13:14:00 05/21/22 13:14:00 Time Out 05/21/22 13:33:00 05/21/22 13:33:00 05/21/22 13:33:00 Procedure COLONOSCOPY(.) COLONOSCOPY(.) COLONOSCOPY(.) Comments Dr. Garnica supervising help in room Last Modified By: Dennise ECHAVARRIA, Hiral Bowden RN, Hirla Rodriguez RN 05/21/22 13:33:49 05/21/22 13:33:49 05/21/22 13:33:49 Entry 4 Entry 5 Case Attendee Sukhi STAHL, Ami BENSON MD, Luis Hall Role Performed Scrub - Primary Surgeon - Primary Time In 05/21/22 13:14:00 05/21/22 13:14:00 Time Out 05/21/22 13:33:00 05/21/22 13:33:00 Procedure COLONOSCOPY(.) COLONOSCOPY(.) Comments Last Modified By: Hiral Bowden RN, RN, Angela 05/21/22 13:33:49 05/21/22 13:33:49 Perioperative Protocols FT [...] No Time Out Noé Johnston, Given Participants Dennise ECHAVARRIA, Narendra Blackman Kirstyn K, Schafer CST, MARCELINO Malin MD, Maher Time Out Complete [...] colon biopsy Primary Procedure Yes Primary Surgeon Luis BENSON MD Start 05/21/22 13:19:00 Stop 05/21/22 13:29:00 Anesthesia [...] and tissue Entry 1 Skin Integrity Intact, [place], Warm, and Skin Abnormality No Dry Outcomes [...] of positioning (more content not included)... Normal [facility] Consenton 05-22-2022 Consent [id number] CD:127 Normal [facility] Discharge Instructionson Discharge Instructions [id number] CD:127 Normal [facility] Consent for Treatmenton Consent for Treatment [id number] D:127 Normal [facility] Endoscopic Procedure Report - Otheron 05-21-2022 Endoscopic [...] nonbleeding internal hemorrhoids Images Procedure images: [id number]_hd_[id number]__0 [id number] Rec1_hd_video_2022__0 [id number].jpg . Post-Procedure Complications: none. Estimated blood loss: [...] Return to activities:: After 24 hours. Normal [facility] Comment on above: Result Comment: Elec tronically Signed By: Luis BENSON MD\.br\Date and Time Signed: 05/21/22 13:31 EST Other Comment: Soila ariza Attachment - attachment storage system not supported [id number] Can be viewed in source systemMissing Attachment - attachment storage system not supported [id number] Can be viewed in source system Inpatient Patient Summaryon 05-21-2022 Inpatient Patient Summary [address] [address] [facility] Clinical Discharge Instructions PERSON INFORMATION Name: EVON CORCORAN [facility]#:[id number] PHYSICIANS Admitting Physician: Luis BENSON MD Attending Physician: Luis BENSON MD PCP: Christopher WELLS DO, FAAFP Discharge Diagnosis: Diarrhea Comment: PATIENT EDUCATION INFORMATION Instructions: Colonoscopy, Care After Surgery Marcelino (ARLENE); Colon Polyps Medication Leaflets: Follow up: With: Address: When: Luis BENSON [address] [place] [address]. [address] [place], [place] [phone] [employer] (1) Comments: office will call for follow [...] Q-10) By Mouth every day. Comment: Normal [facility] Main OR PACU I Recordon Main OR PACU I Record PACU Phase I Document Type FT Summary Primary Physician: Luis BENSON MD Finalized Date/Time: 05/21/22 15:15:56 Pt. Name: NILOEVON/Sex: 1950 Female Med Rec #: [id number] Physician: Luis BENSON MD Financial #: [id number] Pt. Type: O Room/Bed: / Admit/Disch: 05/21/22 [...] By: Maryellen Bonilla RN 05/21/22 15:15 Normal [facility] Main OR Preoperative Recordo n 05-21-2022 Main OR Preoperative Record Holding Area Document Type FT Summary Primary Physician: Luis BENSON MD Finalized Date/Time: 05/21/22 12:19:52 Pt. Name: EVON CORCORAN/Sex: 1950 Female Med Rec #: [id number] Physician: Luis BENSON MD Financial #: [id number] Pt. Type: O Room/Bed: / Admit/Disch: 05/21/22 [...] By: Fritz Dover RN 05/21/22 12:19 Normal [facility] Monitor Recordon 05-21-2022 Monitor Record [id number] D:127 Normal [facility] Monitor Record [id number] D:127 Normal [facility] Outpatient Surgery Discharge Instructionon 05-21-2022 Outpatient Surgery Discharge Instruction [address] [address] Patient Discharge Instructions PERSON INFORMATION Name: EVON [...] THE NEAREST EMERGENCY ROOM OR CALL 911 NILO Styles KAREN L, have received the attached patient education materials/instructions and have verbalized understanding: May we do a follow up call? Yes No I was present when discharge instructions were given Patient Signature Date Clinican/Nurse Signature _ Date Follow up: With: Address: When: Luis Dow [address] [place], [place] [phone] [employer] (1) Comments: office will call for follow up Pharmacy Information: [facility] You may receive a survey from [employer] asking you to rate your care experience. Your feedback is important and will help us understand what we do well and how we can improve the quality of care we provide to you, your loved ones and our community. It?s an honor to serve you. Thank you for choosing [facility] HERE ARE THE MEDICATION CHANGES THAT [...] Some feelings (more content not included)... Normal [facility] Patient Education - Texton 0 05-21-2022 Patient [...] that are (more content not included)... Normal [facility] Progress Note-Physicianon Progress Note-Physician Patient: EVON CORCORAN Age: 71 years Sex: Female : 1950 Associated Diagnoses: None Author: Nahun PIMENTEL, Vinod Greer Postoperative Information Postoperative disposition: Postoperative disposition: To PACU. Optimetrix number: Optimetrix number [id number]. Anesthetic utilized: General. Physical Examination Vital Signs [...] meets criteria ( To home ). Normal [facility] Comment on above: Result Comment: Elec tronically [...] Problems Bile salt-induced diarrhea / SNOMED CT 807125213 / Confirmed BRBPR (bright red blood per rectum) / SNOMED CT 571546755 / Confirmed CAD in [place] artery / SNOMED CT 51833175 / Confirmed Change in bowel habits / SNOMED CT 381670321 / Confirmed Chronic renal impairment, stage 3a / SNOMED CT 7992531342 / Confirmed Claudication of both lower extremities / SNOMED CT 038693029 / Confirmed Familial hypercholesteremia / SNOMED CT 1126002901 / Confirmed History of colon polyps / SNOMED CT 0808078187 / Confirmed History of DVT in adulthood / SNOMED CT 5061455369 / Confirmed HTN - Hypertension / SNOMED CT 9031376697 / Confirmed Hx of colonic polyps / SNOMED CT 6258079484 / Confirmed Internal hemorrhoids with complication / SNOMED CT 4821266780 / Confirmed Mild nonproliferative diabetic retinopathy of both eyes / SNOMED CT 817524955 / Confirmed noted in 08/21/2019 Diabetic Eye Exam. added per outpatient CDI policy. Non-smoker / SNOMED CT 76068513 / Confirmed Type 2 diabetes mellitus with hypercholesterolemia / SNOMED CT 833532117 / Confirmed linked DM with hypercholesterolemia per outpatient CDI policy. Type 2 diabetes mellitus with stage 3 chronic kidney disease / SNOMED CT 147092106 / Confirmed linked DM with CKD per outpatient CDI policy., Active Problems (16) Bile salt-induced diarrhea BRBPR (bright red blood per rectum) CAD in [place] artery Change in bowel habits Chronic renal [...] EST Height/Mike (more content not included)... Normal [facility] Comment on above: Result Comment: Elec tronically Signed By: Nahun PIMENTEL, Vinod Greer\.br\Date and Time Signed: 05/21/22 12:46 EST Giardia, Direct, EIAon 05-14 G. lamblia Ag IA Ql (Stl) Negative Invalid Interpretation Code Negative [facility] Comment on above: Result Comment: Perf ormed at: [address] [id number] PhD Armin Zaldivar Performed By: #### 1 [id number], [id number], [id number] ####[facility] [address] [place] [address] O & P EXAM, ROUTINE, REFLEXo n 05-14-2022 Ova and parasites identified Concentration Nom (Stl) Comment Invalid Interpretation Code [facility] Comment on above: Result Comment: No o va, cysts, or parasites seen. One negative specimen does not rule out the possibility of a parasitic infection. Performed at: [address] [id number] PhD Armin Zaldivar Performed By: #### 1 [id number], [id number], [id number], [id number], [id number] ####[address] [place] [address] O & P Exam, Routineon 2022 Ova and parasites identified LM Nom (Unsp spec) Final report Invalid Interpretation Code [facility] Comment on above: Result Comment: Thes e results were obtained using wet preparation(s) and trichrome stained smear. This test does not include testing for Cryptosporidium parvum, Cyclospora, or Microsporidia. Performed at: [address] [id number] PhD Armin Zaldivar Performed By: #### 1 [id number], [id number], [id number], [id number], [id number], [id number] ####[address] [place] [address] Coding Summary.on 05-12-2022 Coding Summary. CD:[id number]:[id number] Gh0 bWw+PGhlYWQ+WM6ABFKeG32 urFUmiM3CC8jUJG6QTYLNRR XECN4NPO3byLB9FVchP2Rzg iAv ZpisfLPfWL53MCa1DSB0iRo lIKtxzG3cyGMwW7r3YzSjWT 86dQ66YYsoLQNwMdT2WvVwm jsgbWFy R8dfToIcoIXfRua+PHRhYmx lIHdpZHRoPScxMDAlJyBzdH oaUL4dAl2wHBSkIBNfhLpfw HNlOiBj v5ewRLFfLNfcFO2cvAnyF5Z dcRH0DWVdo3h3Jl33aJE+PH NuXQA6dVwnSYaai255QsInb 9ixJUW5 zPBzMOahTYL9A02xm2P8YQH jBGTkVPG0uMR5pN7nkCeaiu ymI3RmgTAbOkU9WJI5vYEvn T4viCqf xznujS8dBco+O65MLW1HATV CXL2UQnz7O8BpOzehsQZ+PC 40ILFtGB51fLAegTZnc7xbm Ue4CnIo KTYsXXP9xExgZNejs4PlLWV hW72etGOwe7G9UDNojYkuoT EvCbVbgVQ5tU2jMGonsmxlo 2hvdzsn Yoakm3ebos15bK49R69qVVe oRSVuXPD4YBBxTSIfbDkfri 2utW1bXk5+FUgft2xui0yti Nu5JjYh TXGhdtAitKhfCXD6t8ZzHw5 7C9QpsHsvs3PjWon3xs41pT Nju0D8hLY8LEofKODepP0fM WxlZnQ6 RXFxEaLnyI84gYTcRAfvUt5 yaCpnxQtvYN6pILTyvadjMT DdoX2pGDYkeXRyqCqmNJ0bI TBpbjtm s301WuRuPZZ1PJQnxCPsW4F syM1aIbUhNYPvBUGcI5IliL HaHLcxJ702QAgxXnL6EZIcc vFyO9Hg CGEmfGgdEqZ3y1K9Ml3Pg9M bssufZDQ8SEnzGJKzYqS8It YtBcZ4D8WnMsh8XBNasEzwR E2wY4Of QUEudlgqduvolAP3GAChNTU rjN09gOErASprOz8xn4F2h8 04WRZuGFXajI52Vo4qiPldS TBwdCBU jD6eshcov9glkyqrQuJhGFZ eOGn6JRp1JPVjmDwxXiAmNU M0GgZ1SZW2oKXiaZ4ifWorl puupR0f Oyc+Q41dmI0bDRO2GBS0rvi oOKXdujJoVN13NS13Q7SsWx wvdGFibGU+PGRpdiBzdHlsZ R2wXdOp k3tnj0FtTPxlL7TjCCDbURn fLrd3TETgGHJ2sLG4dZ6xUV JbBQklg9A5uHK9Q6OzgiYew s8uh7kq KLVnWJvtD84tuDGnt6P7UOY hqUY8HHHtuJbmYyRfgC16Jx c+JUHbdBssl3AsUpvjv3txm 3efnOm3 IyRjJOGtvkTzuUwtFRW3b3R gEs10A29xEVenFBYgNQPwLS HdHBUmrGeuvc0bnP7hSp4+P GNvbCB3 oFR4uI3fIQXqYfB6XUwpP11 3CeOxeVLeMllcp7apg3xpnE b3SlXuDCMwacZfbYmrLII9a 5SkWk32 A73jMHacZOXeRXJsHHVwSMU cyCvszy7aaA5bTd4+PC9jb2 pzfr98sS37gDL+NBKeYWE6w WxlPSdw PDQspA7dGLoiKzO4DJPnIlF fsZ60tNHfDFhiWt8ijQellX eeOL1vPLIvczyjy992DvUnd 2xkIDEw fXRvLQxrMYP9D64zs1G6KWB vHSJzNMY8lLQ1xO2siIllvc ogbGVmdDsgdmVydGljYWwtY ZlcF027 IHRvcDsnPlBhdGllbnQgTmF xVEn7N3RfZko9NHAtkBlqQD 5yjHWcDTefUr2xxPyzuAeeE T6rYOUo ldwom774HeWgk1veYDBnvUO oYMplIEQ9G12rr9H7PSAiXG AnIVE3nHZ6tK3caHrqgaxbl GVmdDsg ikExaAbkZYsdOJldI207TQV alAziWqRrgeVcXFQcaJV0BG 47TY56mVOhz8F8cUZ0W0JkD GRpbmct oawsmID0ZPAwPDTvbB69Ay6 cuGsoDa8pQEDsGID5QYSkzT CvQ7HvmX9iSrKuNEMtPZJpF 3RleHQt GRaxA583VQslGsG3DCDfzpP oD2CiTBLxoBnzVmC3f1H5Vg 6IQ4M7EN81VU10aAZpq7F2n FD8U0Vs XWZivrnrgsjxtBP9LQQeDUJ sgS58Rh9rdMjhUk7eSKDqUQ T0VEVvvCZoW4ZjeU0gLhSeE DAwMDAw H8QjsZAdLKhaA231QSrdUjV 8WUOrxfJeE3OdGJUdwKvsLy Q2i3X7Du7LNPc2LW22ZE48z GNuh7F9 tFQ9Y7TaTMObnvyofbkwbEC 5XPXeBWEdwC15Fz2jrHbwBu 3bPIJzZNC6LIWqmNEoZ4Dpi U9nMiNc NZVcMYJsL9OuaJFkMFvfL23 5SXirZrG7VNTpfsXvA6UtUW VimOtwAmV6x2G2Nw6YBFCbE J14LUV1 zKN6YS21XW01R3PqTsenpLJ ibGU+PHRhYmxlIHdpZHRoPS dfNTBzOuSeiTnwYC2dJq2jQ GVyLWNv dXgvdEDwPdXzu9auJJOrQTg dEM7rwJciL4CyoFO4EZApw4 y5Yh25U10qS8WtoDK+PGNvb LW7hCN0 zB3kWhSeHpZ4UWqoM488SbO hpHPtWqhts4ogw5wofOv3Xe F1IBKzaxYwxIozIDL2p8NuS y54N09f IHdpZHRoPSIxNSUiIHZhbGl leg3olV1sEm0+ITFznOW9hX S1cN2lFcRbQzG2NPurS122Q nRvcCIv Syoku3cob1udrHu1GtNqGJK dxcUttHfiHEM2u4OyZl91H3 WunTlqg8XiYmf9in59zYGgl 8J8hJG0 E8XmJODygqdknFWzmIslSK5 nIBOqufztLFFenN3bZDLlW3 s8XaSbQmI8JJshV1VvkuG0L DEwcHQg UDeiHZB2K16fi6N3PSGcIOT vFAM8xCJ8iD3kwYysvcsckC VmdDsgdmVydGljYWwtYWxpZ 246IHRv eJbtHRDfhB5wMRQnuPFmyId nFJ2pYLAdlodiRcWMKS3FM8 cHBnphG2BZBI5dVYxraYJ+P HRkIHN0 gKoqZKqmMNTbuR6qCPJhB4e 1HnPeXlH7EOmpV2JwCJReal biBv53nE4iNaErAkK4WWrmQ 3SvclT5 YRYijKCaOLssQLX0V90uq1D 5RYEsVFQsQDD6dQA5fV7kxC lnbjogbGVmdDsgdmVydGljY WwtYWxp O074WAXgfYeeTyE9LcApElD 3SOX8Y3TjHvs1WSFgzHtsJN 0trJHbNJrpXg7tqIkxuDjqT F9pJWZq aladDWQlbY8wGWFefDAteKh mPT6hSBWlkvsrr525YwIrZQ D8FQRnqZQnZ3FpuG4dMdUhV DAwMDAw N1KriFIdCUuaK041QSgyEwR 7ETNpsnWdD8JlWFCshZvpUj D3k7M2Es29FmYRGLTnalmcr GQ+PHRk ZTE1uYugSSytEBBmpB5dTTT jY5n6PeHhKxS8BQtjB0IsGG YcdknsDp80mD4lAkZeKjB1B SlsG6Yb vdN2XVPrjRUtITryLZE3Y12 hs3L4OMYvRNIbGKD2dWW1qF 1hbGlnbjogbGVmdDsgdmVyd GljYWwt PKepV546TDJsxUpnDkQgzPI sZTwvdGQ+QMOhNIK7wMtzJE xsGTEcaU6uAMRqW0n1VkVvM gZ2YKhy U4MsXYBrgekbEn66uG6lAnB bBtW5RXteV2NcdtX4BQVbpR ZdDTmhMRC8H14jk9T9AYIhA DAwMDA7 qXB1lI4acSwsibantJHmjTv yrvTbnVmyGXobEDmyQ436XH OsxXpgJfvqVfIBpp4dDO1fB jwvdGQ+ IH49nf99O0UlRzfsKja6ARL sPZS7fZI2pI2jLHUqYRxzy9 Q2nSG4S6AwymEjxt0kb2qdN XBzZTog A91zhRIvh1I9AAAaaXO6OXE poPsgAuRumS90Nfw+PGNvbG lyz1IsMroyo9ipc6zsmWu7N jMwJSIg awRguCkwBRW9y9LtNf37I81 sIHdpZHRoPSIzMCUiIHZhbG svry0czP7hHm8+BWBdaWV7k QQ4aU3m TeFeDsM8FIyzM914HoCmkKD aBzvip8cyc4nikEe1UqFqIR TnzqPeoOymCEA0v9ZzZj04C 2NvbGdy k1NcRuk9tt48zVIdr8M5vQV 6G9OaXHWnuzkzdWTxjObnUI 9jBURxvvepSLNnwZ1pIHSlF 7b9TsWv KqQ5WJdvD6AzdgA1YIFzfSM gYQYueNTEzV2vizfsp3owvu jaIiMqFOVtWEy9WCj9KBVls WduOiBs HUY0GcI5QIW3cNSrnN9dwVr mnpgvrI3tNri+EKw2z0pimE DuPC9lxHA9CC67GB03tHQcp 0M0lBK9 R1ZxYPAqnwxtwqoogVS3LKA jEWKoqP10Op0hqDltCv0rQV VgZYB9ANEeoZHuQ9NreV4lI iAjMDAw UNEaS0ZueAIdUWwpS454IIc pHzJ8EHWilmQsC4KdTPAomB miUrM1c1B0Ye4URF81JM92H E74yEFh r6M1rLL9J7QxCMQdybtqmys jvHC3JUMrSCZhfA20Mb6mgV miXj4sQPJyCPB1UVYgoZBlZ 0NgdV3a OpSxXVEsZFKaT3RnjVTjVLv fL643QYzhMwO1ZOVcfpNvG5 HhUWRxjCzgFfQ9w3Q0Sj0MK g85GU28 QR78cLQfa0I0bMA2W7RtANS ggtsvivqkpHE8CWOfIWGyoZ 70Vz9bhSfgVs2bQAHbEYG3W FRpbWVz D5AijT9mZeCxKYSwJXAvV2H umNLvHDrqZ504MNpvLlO3EY MzvlAjL5TzFQXutCmoShC6b 3M3Og5H XCpyxdn2D6MmAppvjJG+PC9 2VSXiJB64lKWlhXSml2sidG x8AcDsXAKyAYS7rMmsSFnzs 3JkZXIt Y29s (more content not included)... Normal [facility] CDiff PCRon 05-08-2022 CDiff PCR Unable to perform te st due to consistency of stool. C. Difficile testing will only be performed on diarrheal (unformed) stool unless ileus due to C. difficile is expected. Reference: Clinical Practice Guidelines for Clostridium difficile Infection in Adults, Infection and Hospital Epidemiology July 2009, Vol 31, No 5. Normal [facility] Cdiff Specimen Acceptable Unacceptable Normal [facility] Comment on above: Performed By: #### 1 [id number], [id number], [id number], [id number], [id number] ####[facility] [address] [place] [address] Order Cancelled YES Normal [facility] Comment on above: Performed By: #### 1 [id number], [id number], [id number], [id number], [id number] ####[facility] [address] [place] [address] Enteric Panel by PCRon 05-08 C. coli+jejuni+upsalie nsis DNA ARCELIA+non-probe Ql (Stl) Not detected Normal [facility] Comment on above: Result Comment: Test ing was performed utilizing reverse label sewer (RT), polymerase chain reaction (PCR), and array [...] nulcleic acid test. Performed By: #### 1 [id number], [id number], [id number], [id number], [id number], [id number] ####[facility] [address] [place] [address] E. coli stx1+stx2 genes ARCELIA+non-probe Ql (Stl) Negative Normal [facility] Comment on above: Performed By: #### 1 [id number], [id number], [id number], [id number], [id number], [id number] ####[facility] [address] [place] [address] Enteric Panel by PCR Negative Normal [facility] Enteric Panel Intrl QC Pass Normal [facility] Comment on above: Result Comment: Test ing was performed utilizing reverse label sewer (RT), polymerase chain reaction (PCR), and array [...] 1 and 2. Performed By: #### 1 [id number], [id number], [id number], [id number], [id number], [id number] ####[facility] [address] [place] [id number] Norovirus genogroup I+II RNA ARCELIA+non-probe Ql (Stl) Not detected Normal [facility] Comment on above: Performed By: #### 1 [id number], [id number], [id number], [id number], [id number], [id number] ####[facility] [address] [place] [address] Rotavirus A RNA ARCELIA+non-probe Ql (Stl) Not detected Normal [facility] Comment on above: Performed By: #### 1 [id number], [id number], 60607128, 56010222, 66294507, [id number] ####[facility] [address] [place] [address] S. enterica+bongori DNA ARCELIA+non-probe Ql (Stl) Not detected Normal [facility] Comment on above: Result Comment: This test result should be correlated with clinical presentations and medical history by a healthcare provider to determine its clinical significance. Performed By: #### 1 [id number], 52905300, 68461212, 26721445, 11788820, [id number] ####[facility] [address] [place] [address] Shigella species+EIEC invasion plasmid antigen H ipaH gene ARCELIA+non-probe Ql (Stl) Not detected Normal [facility] Comment on above: Performed By: #### 1 [id number], 26418037, 74490053, 45032117, 70122107, [id number] ####[facility] [address] [place] [address] V. cholerae+parahaemol yticus+vulnificus DNA ARCELIA+non-probe Ql (Stl) Not detected Normal [facility] Comment on above: Performed By: #### 1 [id number], 59696954, 03725136, 87010946, 68743257, [id number] ####[address] [address] Y. enterocolitica DNA ARCELIA+non-probe Ql (Stl) Not detected Normal [facility] Comment on above: Performed By: #### 1 [id number], 26697178, 48533241, 21011055, 77169414, [id number] ####[facility] [address] [place] [address] Fecal WBC Lactoferrinon 04-17 Fecal WBC Lactoferrin Negative Normal Negative [facility] Comment on above: Result Comment: The semi-quantitative detection of elevated levels of fecal lactoferrin is a marker for fecal leukocytes and an indication of intestinal inflammation. Performed By: #### 1 [id number], 85085148, 16678231, 62926079, 35378956, [id number] ####[facility] [address] [place] [address] MICRO OTHER TESTSOrdered By: Cynthia Case on 05-08-2022 Fecal WBC Lactoferrin Negative (05/08/22 9:00 AM) Normal Negative [facility] Man Sero Coding Summary.on 05-07-2022 Coding Summary. CD:[id number] Gh0 bWw+PGhlYWQ+SB8URTSmI49 khJRorB5GN9fNDX5QKGHEHI MNRT2EPS1fvMV0ZDorI6Ofr iAv LrlkeBVuHQ89JSw3JLF8pIp oCMtgcV6rrRKaI8w0IxRdXM 46wS58PRynBLSyHhR5BrKez jsgbWFy T2deZzDwbQWqQel+PHRhYmx lIHdpZHRoPScxMDAlJyBzdH sbYQ9jQy4bYZLmMHNkkSefe HNlOiBj q4vlQKLiFGicTV6rpJqiG1A vqUL7TSGfv7b7Vg95lRO+PH BxJLO7xShrAPsya751TdMed 3jhPWT6 oGFtYMzxLDN8S29mw9T8NZY bHNCvWZE2zES7sB5mpCnnvb bzE9IcrYEdMuK2WYR7uRGrd I8itYiq ixljaK3uDec+D89XMV5GUZF MYK9AGhb1V1SvHkhttLD+PC 09NVBeRZ78xMRycXFqh6zgo Do2ZlGl RSEcMQU3ySsuQWjhw4YeUZY eL42ntYDuo3F6XFMybZvzjO FuRzSwjHT1fI7nGNvnxbkdc 2hvdzsn Pudis0xdrq27cY34E36bSMr eBDFuQRF3XVOjMGGbmIgrfb 0cqU7gYv5+OFddw3xpn3wgo Gk2StGe AVVljjCeoDigNQB2s2SqQd0 1R9CosUnww7XhLiy9am78nU Tjo9D8mRY5CFwfWZFqrM3nF WxlZnQ6 JRXaRtOkrV28iPLzXRgsFz1 osVkvpYadUU6rAXXabtiuUU SzvO9hLMMjeBDjpVzsZY0pR TBpbjtm v156XiPaLYP2SNBqpTQiW1V aeJ1wGuVuHSMsBVHxA7NjvR RqXDiwC834XMcvCiU0GERjm mKeD1Sc TLOziRlySbF9p3E4Gg9Uc1O eulewCTE5UHmnUBYpMyMxBa SkFgI1G8XdVio7KFDjuDrtE S4wW7Lx PLTcghkyejmutUP4KSBsSRF doC23zECjOBjyWy8ss3I3u5 04JKTiOUZawS51Jx0hrYbgV TBwdCBU pK6qabepi0wxowpnLaJaNYW sCHz3PFz5LSHptBvwCxYzCM B1XxC1AQU1rQLjcT7omDeol oburO4g Oyc+K58njZ5dMSW6GNK9wmx bLHYldhOlFW99AX04Q7QuMd wvdGFibGU+PGRpdiBzdHlsZ A9mNtTq d1byl9AfOWoyL0AnUMWeOAl rOhg5HENdTXU5vXQ0nE4fMD WeYJbap6D6eDG6T2SipcFkk k3ch7hd PTXpPBhsX90edOKas2R0REZ kuRQ5MNZtdQnzYeKfvQ26Pv c+ANRnhWznr5ToVowuh7fdx 5vrpRx5 EeIbIYOrkdKuqUtxFLL6o2X dDl90J94uXGseJQFmPGShDP PoALLmpDrenu7hmD8lFl2+P GNvbCB3 uRK0tQ6pSRGcTjB2OByeV61 7XjDfgRTiIoett9unc9iznO n9MmYjWXWzesWdgDkmXVS2y 2TmCm35 R59lCVjdLYNzGLSwAHGbGXL kpVjfhm5kfE8yDx3+PC9jb2 kzsf31uV75pYW+KJShIVO7d WxlPSdw SHTtlO8zVLouTzR6RVTrIdZ gwJ58fPTlHQgvAl0nrKuqoH crRG7jYOJyseecl641RtSax 2xkIDEw iIHoLEiiYTX9W80wh4R3GZM hFSKzOQN9hQP3zN3cjFglrt ogbGVmdDsgdmVydGljYWwtY NdpI885 IHRvcDsnPlBhdGllbnQgTmF gMBj9V9LqXqm8SOBifUzpGO 3wsRMbIBydDe0nyChgqBixK T7dVALc xyvpr522ZwGbg3swBVQawRA zUJteKEZ6Z91wv8O7JZZkHG OyZNJ7iUF1mD8kyYmyoqkgt GVmdDsg qiNhfBthBBfjGKzuK810JRR ojKzhQxZkzlRbOJKnxXX7SX 30RV00xVXre9D0oXL9Y4LpM GRpbmct kysouDY7OYGmNTLetU32Rs1 xfFwcIy9zHQLeMBM9FTJrbU QzM7NzjF5hWlSmRSSjTDEqZ 3RleHQt SBuaL454JVrsCsJ6VLXppxW nO7AkJXOpvKldWeX5r4N0Oe 9SE4B2CV11LD26kJOmp7Z5y ZV0J9Zn BIIqatdzgijzhDY2DEVpICD gpX72Rl1vhCfbEw4cRYFqWX W8HOUswNZvJ7KypL7wXpKlT DAwMDAw Y5EctNUsYCehK771NZwaXdK 2ZDQubqHbO4JtURJbqVwlGc R1i6D6Tx8DIKj9LC60GN40j AMzw8Z5 oNU3S5IfZQHdmbjlnofbiQQ 7OOXeCXKzbI62Cq3tcJmbZs 0aJXInUYE5EGIbpATbQ3Kaq R4uCjXy UWRuRNNcM0WwuROdLTvzV36 3QJxaErR8LJKkxiFmI3DfOJ CsqPwvMnA3e6U2Og2APQBaO Q11YJK5 tCV0ER01PI96J4CkJlgozHP ibGU+PHRhYmxlIHdpZHRoPS qxFQFtPbEapXwfBL5cZr4yC GVyLWNv vCngoXNrIgSyr2ayHNYkUOp kRT8ncDxrQ6UbtVH5VURne2 t3Mn87K56jH5JzgAH+PGNvb HK7aDV4 cW6xAnYnQyW6HAiyK291DyE ydERlZpurv3bla6shkLq8Ss P0HPXbfcSnyUxhSCE9n8PvZ d81B91q IHdpZHRoPSIxNSUiIHZhbGl gjb6jyV0zLi6+EWHsmBA3jO C1sQ7sRrSjJbO4ABdlY138B nRvcCIv Jsfih3kol5pevYf4EhFjFOI luxNltHavJBJ8r4YgYo61J8 OhgUmfo6XgIbh3dp15jBZfq 1Y1iYF4 K6MiYQGykgtsmHEzmIgxUF6 zDJYjtschAOUiyW7yFTJkG8 q5LeUuGnF4VSadB5JlgjU0I DEwcHQg AVjgHHD7V90tm9C7LWLdMRT zCSG4vXH2sI7nlXqpayigwH VmdDsgdmVydGljYWwtYWxpZ 246IHRv gZvmDBXbxX7eHBHxmTMtsDn yWL9cKPWjvbciYtTREJ7TT7 qLNnelM9QPRE1nVLkfdWH+P HRkIHN0 sCshZQqyXABqrX1eCLJtV6f 3QcAsGqM1CWbrU7ByQJAjpw srHd77eD9mRtCgQlL0MTrxN 4AnkwP2 QLPcwWYsTMhwQXC5X52zv7I 0WBLzNDWgUUZ0dOY2aW4llI lnbjogbGVmdDsgdmVydGljY WwtYWxp A566NVZrgCxkEdF7LxRcTxQ 1AMN9M7HdPhu1HSDsjTxlAX 8ptELrXRhhRn1bgYaypYdmW Y0bIAJd wippXVUobY5nOGSzxUWilHn yRI1uXAWbsuxxb215PfWmLN P0DCEweNRxT3TwoK5oInUcI DAwMDAw O8HjwMNrESmnT098UOyaFqB 4XUZoptDxY7UjHORhwTmkFn M1s7E5Ii00BpXIJXQmkixtz GQ+PHRk KVS9dZtrRMpqOUDdsS4gTVI cB8q7TxUnKrH2HKjtW7TpUK WupllvYe90oM2vPxHoKfI6I LxmS2Hb yeH8TXYtqVVpNHtxQIG4U06 hk0H2BVRwANFwKQF1mLQ4iS 1hbGlnbjogbGVmdDsgdmVyd GljYWwt TDghB132MHUawJqfJlSrkOW sZTwvdGQ+BOQnSEX7eDlxKC tjBPUufW2fLGYsR1j3NgCoY rS9PUys Q2HmLARxbvkhSq12lY7lJlP aTuJ8RAgtT7YnwlZ5SBUivH SrFOhfXIY4S28zj6Z2PNUsL DAwMDA7 zMO6jD1ieIywfzxnuEXxhTk gdoFumVtgVTnqLMkdA894FU NmuGlrHl28lVBgyRodazO4C 3RkPjwv dHI+KA16KAMfZX44sLDwmPE ww5wlkWv8MeCmCOAqVKJ1pX nsWZyki7UdZKHmS19afCNsi 8Z1BFIf pMjmuHGaHfFxaVW8bL8wLGw iwvbka7witdnsPcyyp2cttc 65fD72F07aZOmuDJFzXOBhX CUiIHZh bRgpax0yxP4vVb9+PGNvbCB 7mEE5aT6kYxQoZnJ6KHphU0 54BzVwfGWmDbvnl7bxc3yev Es6XfWd QPBwpxQdfKmoWWX6n9LbGx4 5T04wKXiySZHnOTPpVMFmNO FsnHtwoh8tkZ4kDx1+PC9jb 4polt03 zK21gRA+VBJmTUK2lWhnPDq jVECzuO9jIVkuLiY8VRJwGs KqnJ74lQIsADvyAp1rlMimc FpkUI6u SGHrkfzdh504NdDzc3roGLK ecAOlVVaxUPF4J14mv4P8HZ NnPCByISL2gNU7cW4zfSgxe jogbGVm jUzujwBgyPgsQQqmJKepF70 3JDGvhTecOoBfsYMaF1fcot GKCC3nVmzwiLA+JCKvXXT6a WxlPSdw JFQjzT0jSFAuD2k7UpJbSwV 7HBirY1ZnnsM0ZOPhrPSnVO HeuKMFpD0ryodiu0lhemgwM zAwMDAw VKk7QMy7BPGszXipUvTpZPQ 2LxG0CKH8sBCjwP8ygIvhxw vsfR3zNzb+RklOOjwvdGQ+P HRkIHN0 oQosAFemLMJzpI7sPHDdC3f 8VnZdXzS1PNxyG2XwgpN3GB PplPJbTTGdyUPOaD5wlfcxo 2xvcjog PrRtVYMgUCm5WFs0WBEebWh gNtZlHJF3BvP9VZC8cUSylW 9qxReqtgbmyH3eXmi+TVJOO jwvdGQ+ NMKrQPW5eXlxHYltYRXgoP5 kQAKaR3l2UdJsZpP6UYgmP8 CbsgL8ANXkySMbHZGguFJXb P3brkpi o5ivsfsgOjHdQKOgRWs4XXw 4FCLlxBimPuYhUCM1NrB5SP T8eKNdgL0lqSdbhlmtcL6iW yc+UGF5 IIR4BM46EJ08U1WwOeogjPF ibGU+PHRhYmxlIHdpZHRoPS phUYUcJuPiaRspJS4qAd3aB GVyLWNv bGxh (more content not included)... Normal [facility] Consent for Procedure/Surger yon 05-06-2022 Consent for Procedure/Surgery [id number] D:127 Normal [facility] Ambulatory Visit Summaryon 0 05-05-2022 Ambulatory Visit Summary EVON CORCORAN :1950 Visit Date:05/05/2022 Ambulatory Visit Instructions Your Diagnosis Change in bowel habits BRBPR (bright red blood per rectum) History of colon polyps Your Care Team Attending Physician - Linda Solorio CNP Primary Care Physician - Christopher WELLS DO, FAAFP Referring Physician - Christopher WELLS DO, FAAFP This Is Your Medications List polyethylene glycol [...] Lab Collect, Change in bowel habits Normal [facility] Auto Diffon 05-05-2022 Basophils/100 WBC (Bld) 0.6 % Normal 0.0-2.0 [facility] Comment on above: Order Comment: Order Added by Discern Expert. Performed By: #### 1 [id number], 4077361, 3146887, 4854498 #### [facility] [address] [place] [address] Basophils/Leukocyte s Auto (Bld) [Pure # fraction] 0.0 E9/L Normal 0.0-0.2 [facility] Comment on above: Order Comment: Order Added by Discern Expert. Performed By: #### 1 1188884, 1511084, 9420986, 6481601 #### [facility] [address] [place] [address] Eosinophils/100 WBC (Bld) 1.6 % Normal 0.0-8.0 [facility] Comment on above: Order Comment: Order Added by Discern Expert. Performed By: #### 1 2251914, 4478230, 5723584, 2256019 #### [facility] [address] [place] [address] Eosinophils/Leukocy bev Auto (Bld) [Pure # fraction] 0.1 E9/L Normal 0.0-0.5 [facility] Comment on above: Order Comment: Order Added by Discern Expert. Performed By: #### 1 5687180, 5671319, 5941686, 8661038 #### [facility] [address] [place] [address] Lymphocytes/100 WBC (Bld) 15.4 % Normal 14.0-50.0 [facility] Comment on above: Order Comment: Order Added by Discern Expert. Performed By: #### 1 8749800, 6825502, 7659444, 9722624 #### [facility] [address] [place] [address] Lymphocytes/Leukocy bev Auto (Bld) [Pure # fraction] 1.3 E9/L Normal 1.0-4.0 [facility] Comment on above: Order Comment: Order Added by Discern Expert. Performed By: #### 1 1711102, 3142842, 5458883, 3911185 #### [facility] [address] [place] [address] Monocytes/100 WBC (Bld) 5.9 % Normal 4.0-14.0 [facility] Comment on above: Order Comment: Order Added by Discern Expert. Performed By: #### 1 8526458, 7538389, 0540863, 9696607 #### [facility] [address] [place] [address] Monocytes/Leukocyte s Auto (Bld) [Pure # fraction] 0.5 E9/L Normal 0.2-1.0 [facility] Comment on above: Order Comment: Order Added by Discern Expert. Performed By: #### 1 5679474, 1146123, 0429585, 7569890 #### [facility] [address] [place] [address] Neutrophils/100 WBC (Bld) 76.5 % High 36.0-75.0 [facility] Comment on above: Order Comment: Order Added by Discern Expert. Performed By: #### 1 8589879, 9010658, 5458738, 8896468 #### [facility] [address] [place] [address] Neutrophils/Leukocy bev Auto (Bld) [Pure # fraction] 6.4 E9/L Normal 2.0-7.5 [facility] Comment on above: Order Comment: Order Added by Discern Expert. Performed By: #### 1 7750550, 4737317, 1821226, 3528121 #### [facility] [address] [place] [address] CBC w/ Auto Diffon 3 Erythrocyte distribution width (RBC) [Ratio] 14.1 % Normal 10.9-14.2 [facility] Comment on above: Performed By: #### 1 5229491, 4054896, 5661391, 0453350 #### [facility] [address] [place] [address] Hematocrit (Bld) [Volume fraction] 38.1 % Normal 34.0-46.0 [facility] Comment on above: Performed By: #### 1 1766594, 2713254, 7230504, 2128150 #### [facility] [address] [place] [address] Hemoglobin (Bld) [Mass/Vol] 12.5 g/dL Normal 12.0-16.0 [facility] Comment on above: Performed By: #### 1 3282441, 5514442, 2329920, 9528596 #### [facility] [address] [place] [address] MCH (RBC) [Entitic mass] 28.6 pg Normal 27.0-34.0 [facility] Comment on above: Performed By: #### 1 1924025, 9936391, 4456088, 9263469 #### [facility] [address] [place] [address] MCHC (RBC) [Mass/Vol] 32.9 g/dL Normal 31.4-36.0 [facility] Comment on above: Performed By: #### 1 2224384, 4124210, 4127111, 0045352 #### [facility] [address] [place] [address] MCV (RBC) [Entitic vol] 87.1 fL Normal 80.0-100.0 [facility] Comment on above: Performed By: #### 1 9722922, 2725372, 3693862, 6067672 #### [facility] [address] [place] [address] Platelet mean volume (Bld) [Entitic vol] 11.0 fL High 6.4-10.8 [facility] Comment on above: Performed By: #### 1 8263892, 5346347, 1086944, 2784659 #### [facility] [address] [place] [address] Platelets (Bld) [#/Vol] 202.0 E9/L Normal 150.0-500.0 [facility] Comment on above: Performed By: #### 1 8539153, 2762922, 6339694, 1152899 #### [facility] [address] [place], [place] [address] RBC (Bld) [#/Vol] 4.4 E12/L Normal 4.3-5.9 [facility] Comment on above: Performed By: #### 1 7001136, 5845835, 3292255, 1836924 #### [facility] [address] [place] [address] WBC corrected for nucl RBC Auto (Bld) [#/Vol] 8.3 E9/L Normal 4.0-11.0 [facility] Comment on above: Performed By: #### 1 9195772, 8618888, 0198866, 5351750 #### [facility] [address] [place], [place] [address] CMPon 05-05-2022 Albumin [Mass/Vol] 3.6 g/dL Normal 3.3-5.0 [facility] Comment on above: Performed By: #### 1 1464090, 5877751, 8701331, 4850282 #### [facility] [address] [place], [place] [address] Albumin/Globulin (S) [Mass conc ratio] 1.0 Low 1.1-2.2 [facility] Comment on above: Performed By: #### 1 4626905, 1873736, 0008752, 5031416 #### [facility] [address] [place] [address] ALP [Catalytic activity/Vol] 93 Int._Unit/L Normal 21-98 [facility] Comment on above: Performed By: #### 1 9610160, 5015311, 2343023, 2502094 #### [facility] [address] [place] [address] ALT No additional P-5'-P [Catalytic activity/Vol] 27 Int._Unit/L Normal 6-46 [facility] Comment on above: Performed By: #### 1 5300424, 1161844, 0423131, 1850972 #### [facility] [address] [place] [address] Anion gap [Moles/Vol] 15 mmol/L Normal 6-16 [facility] Comment on above: Performed By: #### 1 9995364, 7273301, 3831420, 8721162 #### [facility] [address] [place] [address] AST [Catalytic activity/Vol] 29 Int._Unit/L Normal 5-43 [facility] Comment on above: Performed By: #### 1 5358092, 3995594, 6946388, 4632118 #### [facility] [address] [place] [address] Bilirubin [Mass/Vol] 0.8 mg/dL Normal 0.0-1.1 [facility] Comment on above: Performed By: #### 1 9945167, 4107423, 4456163, 3133232 #### [facility] [address] [place] [address] Calcium [Mass/Vol] 8.6 mg/dL Low 8.9-11.1 [facility] Comment on above: Performed By: #### 1 5180495, 0393472, 4300041, 5951633 #### [facility] [address] [place] [address] Chloride [Moles/Vol] 100 mmol/L Low 101-111 [facility] Comment on above: Performed By: #### 1 2835778, 1337258, 5470814, 1312603 #### [facility] [address] [place] [address] CO2 [Moles/Vol] 26 mmol/L Normal 21-31 [facility] Comment on above: Performed By: #### 1 4150240, 6426420, 0860665, 0531659 #### [facility] [address] [place] [address] Creatinine [Mass/Vol] 1.2 mg/dL Normal 0.5-1.3 [facility] Comment on above: Performed By: #### 1 3438299, 5092775, 3975737, 4121348 #### [facility] [address] [place] [address] Globulin (S) [Mass/Vol] 3.7 g/dL Normal 1.4-4.0 [facility] Comment on above: Performed By: #### 1 9222359, 5680691, 8773567, 0930512 #### [facility] [address] [place] [address] Glucose [Mass/Vol] 303 mg/dL High 55-199 [facility] Comment on above: Result Comment: If t his glucose result represents a fasting glucose, interpretation should refer to the following reference range: 55-99 mg/dL Performed By: #### 1 7959985, 1908395, 3315655, 8819319 #### [facility] [address] [place] [address] Potassium [Moles/Vol] 3.8 mmol/L Normal 3.5-5.3 [facility] Comment on above: Performed By: #### 1 7513996, 1302963, 6121489, 5250094 #### [facility] [address] [place] [address] Protein [Mass/Vol] 7.3 g/dL Normal 6.0-7.8 [facility] Comment on above: Performed By: #### 1 3682692, 1422166, 1849890, 0737394 #### [facility] [address] [place] [address] Sodium [Moles/Vol] 137 mmol/L Normal 135-145 [facility] Comment on above: Performed By: #### 1 3710812, 5448790, 7585196, 4590343 #### [facility] [address] [place] [address] Urea nitrogen [Mass/Vol] 28 mg/dL High 5-21 [facility] Comment on above: Performed By: #### 1 3635237, 2914828, 6590716, 2910592 #### [facility] [address] [place] [address] Urea nitrogen/Creatinine [Mass ratio] 23 No Units High 10-20 [facility] Comment on above: Performed By: #### 1 7187155, 9838722, 7066846, 9028635 #### [facility] [address] [place] [address] Consent for Treatmenton 04-17 Consent for Treatment [id number] D:127 Normal [facility] Gastroenterology Office/Clin ic Noteon 05-05-2022 Gastroenterology Office/Clinic [...] left leg with Dr. Barney, Vascular at [facility] 04/07/22. During today's visit, patient reports [...] Refill(s) 0, Prior to colonoscopy., [id number], 165, cm, 05/05/22 13:40:00 EST, Height/Length Dosing, 95.2, kg, 05/05/22 13:40:00 EST, Weight Dosing Follow-up With When Contact Information Linda Solorio CNP Within 1 to 2 weeks Additional Instructions: Following colonoscopy. Patient Education Colonoscopy, Adult Problem List/Past Medical History Ongoing Bile salt-induced diarrhea BRBPR (bright red blood per rectum) CAD in [place] artery Change in bowel habits Chronic renal [...] 3 chroni (more content not included)... Normal [facility] Comment on above: Result Comment: Elec tronically [...] including vitamins, herbs, eye drops, creams, and jvug-zap-otqzpnv medicines. ? Any problems you or family [...] air t (more content not included)... Normal [facility] eGFRon 05-05-2022 GFR/1.73 sq M.predicted among blacks MDRD (S/P/Bld) [Vol rate/Area] 54 mL/min/1.73 m2 Low >=59 [facility] Comment on above: Order Comment: Order added by Discern Expert. Result Comment: eGFR is race adjusted. AA=. Performed By: #### 1 6002560, 1710780, 9325740, 1267836 #### [facility] [address] [place] [address] GFR/1.73 sq M.predicted among non-blacks MDRD (S/P/Bld) [Vol rate/Area] 44 mL/min/1.73 m2 Low >=59 [facility] Comment on above: Order Comment: Order added by Discern Expert. Result Comment: Slip Cover Sewer jin kidney disease could be indicated at eGFR's of less than 60 mL/min/1.73m2. Kidney failure is indicated at less than 15 mL/min/1.73m2. Performed By: #### 1 9058474, 3940308, 4315496, 9965065 #### [facility] [address] [place] [address] PAD Rehabon 04-15-2022 PAD Rehab Please click on link to see report [id number] SALtJtb5BUKcZtKQ9cevg4F YwpSVFmCASiHHHkSNPCJw6K Y0oeckmeDBBwNxEfKMUg WKWaXHqujlHmk4LkjJM0TVl gMq9HibWulR0eBPlXN176nL ZsrgMpZ96ffJ6lKSIdk07oK c7AgvCw pAywjhCggREnTFC6IwNuJiR xMzExNDUyNDEtMDUnMDAnKQ o+EcfkqdUyHibTVMGrNR4hi mv9GOpl EYvjEYBbGy4onHIvm7KxgMV 1u0LSS9NxniBCTF2aKL0Jmh zyuV5DSa2OoGTbfaVlEhwbE c8eoNFH i8zvYg38TxLiZJNyQLIvLLH sFYKbFUOqJq1RwOQweI9dL3 jtkLooTye3Fv5LhNEuWYJ0I NqvW7Xr cEVkFvbLA8t3HDwnJ1YoE1z iMPGUL9EuvBwqkVubnKB0ZH DMI6vRXRhxrWGaMXX0Pu2Ry 2NlbnQg BLQ1Jh6QLJMuAN82OY8fMKY JY6haCHHmcfpsGFLiWk4BGD aMuZQ6sICzBKXyYq7GdgpQv WJ4oNM1 OHGBHq6JZL0ky2InZgGqOWC zVtfAYIlGX9V2vFIhC7Xmrq KLF3O8OvN0tZJdR9NphGOCz IQuAm4N WPBnPf5ckMMmTJSvODgGUSv ePajlk6VLrGBwOGChMz3IWA M2A4qxvqCcQdTXP4AlW99gs C1wIX5X tU6GtqKfIK0uu0CaicyPN8U qrvQRFMEotgwccG3rZBCtNN WCNq8YiKW9vWBfYqGkOmuxD CAwIDAg MCAwIDAgMCAzMzMgMzMzIDA lXDPoRyfqSrScDoU8YFNrQs rfNPK7CLE4FmM1OWApRPN1O YZ1KkL2 YAEzBTH3PHMoOEE5VTL4MeR yNzggMCAwIDAKMCAwIDAgNj O0PKM8HpV2BkTeBzSjHHD2A mU0DWZq BCL9IxGyEaq9JECwTyC3SYB 8GdA9OsVJRnFaXXh0MHP1Iq olIDP0PvPbHyZ5NEEnWAA2G jIgMCA5 YKGjMAY5GutiHCPgKZQmPEn qRIUfPDQ4NZLmLNG2IXLqRR N6QONeIAH5RKF3EIG7HRJsN KN2YUXj CpTtFyYuZPQaRCOzVqS0HnM TIPM3LGI1JoW1GBDzVYM0WP QiDmU0JLDfYwq1VGO7TxW7O DAgNzIy WEAdMXY9XLNuHm7VVE9lz2C zOqwbLMCbJunRSZhUJ4K3aO JmM0ZeaeOZFWYainwwrU9oZ v1Ud241 LmYdDXAsZMEfDUfgPu4gCFq 4TWzhQ01MKl1EwWXxjaIuZl zbPn9ljHQXe1kgRy91VqCeB HW5CmZg ExvrVDYrDIgrGf4UlLRtmH8 aO2iyiQmdAsj7Pn7OuCNzSN S0LXdeP2GjlTTsHhzXX2d0I AbyI0Us T1gwPF3hMqyvR9GuGJQjI2z 8XVciYcdyQQfevFkslBE0OB fRQ7HxO2QujOJ0WSCDI8Dey 2NlbnQg LTIxMgovTGVhZGluZyAxNTA FY69myHsnCICcQKZcWjHHN4 M9H5mvEYZeAAE3WKs+Pgplb mRvYmoK AAFrSF4hgal0WTdjJUveUMS rRq4evNpxU9LziMptZSMgZK F4WWW8oBUGK6Iov6NPv968M M1Bvfhz jR0Da9wsIIWsyHrmYQRON7I ejcZ7I9mszyZqNjdrXXFhcI ElGUAtTNB1Pa4RdvDzNNceY cEhJ0zp BY2ksODcN36awF6nUx0Us50 8MMFeN6FghSZyfgG9WCVeVj moI8hznKesOVbaGhn8EGYsY CAwIDAg MCAwIDAgMCAwIDAgMCAwIDA KMCAwIDAgMCAwIDAgMCAwID AgMCAwIDAgMCAwIDAgMAowI DAgMCA3 MjIgMCAwIDcyMiAwIDAgMCA wIDAgMCAwIDAgMAowIDAgNj U4TQRfVUMpDNApGOHhWPMkV CAwIDAg MCAwIDAKMCAwIDAgMCAwIDA cWQT0DHOhMFOnHNMyPKBdYI EkZJI7VBwTDsDoYKJmGGEpU DAgNTU2 IDMzM10+PgplbmRvYmoKOSA sUS4viub7BTggZItgYSQxFw 7ctAJlm0TrgTN1n5JLU6Iuc vNBMH8l RF4UxmbmtC8Hp0ahNLTBC2Y dMNnaEJDbGw6Kq555DyWatE AyVBWtIVQnBjm8VOQvXYEoM HX3Eh5Q T55dl2EbsgkEoIY4oCUbZtm QS3N8AS2JQJi7Nw1DrGYyFu J4XKjzOIFucSscYI5kwTGeD YinZ7Wb XVRfD4c1GVwdTtenCLnpgUj zbEB7KEnUW9EtK5FyvXO8IP MWT5Bfu6UpcsNdCPNwJxmyH GVhZGlu TdVhRZZTD14tcLcmQQKoQJW oAHIYR1Q9U9pfZKGvVYE2OF o+PgplbmRvYmoKMTAgMCBvY moKPDwK V4D5hULwI9RbaxKQT6B3OiW 3mROaN2TugRYTnQKcVt7IVC DqSu7bbVVqWXUxOBybYe8mG C3RJt2T zWVzsLYrYXKuYzYSU9mpm0C IwWFxYVSoCDbfSB3ad2Trkx ysW5dugnDsk8nYqqRvMYlmC icsWo5g kHQih2ZwdKE6q7TvWNHyJAU ZK0sjWJOfeqFnCGB1WSZoQR CwWPA5UTUmTMBzHMWpZfMwX DMzMyAw XKNyWue7JKGOIay3JUM1GJU oVMU7BaT9NDNhIKL0MOW2Fi W7AFLbGMCtEEDrFNFjFuXkU CAwIDAK DBL3HSQzMTR6JoSeEhJaRAx mFgY9QuQwZoE7UALeYBA3Kc zxSeBkXJJ3NGR0NRHrEXP7I TEgODMz UdxgUjP4VctpDaG8WLq1FOM 6NyPxFtQ8RHSxKPCqDIFnNZ I2LLYuYPKyGCCaQJYpHiZxU CAwIDU1 OdW3GEKyQBS9SHRdJPF9SFQ iVsVbDLLhILZ7IZOpWfr6GX NaDCL8KHJ0EGR3TOoBSeHtF DYxMSA2 YSHaFJTrDAmwPSP0KCSpOdR 8JBIjWZT5VBy2ISZ5HDCqEN U2XT4+UiZbKR6vrjxpRRXmY X2jgvm7 DKfyVESaS6KtIRJ8YGA6Ep3 RBX8cnKfnUna3HhqaWuycnW VyIFsvRmxhdGVEZWNvZGVdC j4+CnN0 gbUffMn52qRXfFUU7HG/976 P+4vZwY00mQJ7flVJ5PNBCq MWHFVkn8rZcCaretuboj7KP iQCUhDK hRJNz4WPNxh1UeQYRJj+Jag ZUZpOsJe9oYI9i9TsQ4RmGN TZLTUBS2Nl370dSVjB/+hM7 Tv57e/e l99235jt31vABWDPH5PWPDl t4dV1DovCQ5YoYTDmxYzeFr vevDLDBLAVAchLHmhav/Q3v 3t3OIMm LyYR8PzYF419w3PlGQ+J90x zRXM7uv2AEAKelqt5gojxke etKggQh/oD6KzDlTXUhmGPR Ihdg/ef MYIpczp8R3F9jzr692nLje1 YhbJM47r8D4IJmF6g54SqWn xSIV7oc5Dq+0uKhZj0VDJ41 4U4+gnU 7ofUsSySF4SUJdLi+EAewsR FJBls8EChuKE4urEFQ37bl1 WPDzF8TWRD9ec6QzVllPF8X UQG7XHc Ei1JifPrU2y2GS4DF7pGIDt Ghnmy1Xgx2xr4FxRTKRGh2P iH7YEyE7zxh2YhEhfAc3M2E za9sKZB EwVRok9ZCZ7jEPncm+BD+Ct JHHIwBL8fLzsmgKHySrmLmw Eq93euKF6sHDDzJQMmb4xGz USnYtSV jQexfWU3LVKrFjNYwRkeSEL SWWLtVUPxpGchq9ZramuPWg 4OYtBoOzu5xLpafKEkI8W0P /pRrtBs SwP9bkY3AJIs5AdKqkNLQu4 6n+3RVIytgAppoEMGTMGqfL hGNeZcDw/Ta4TqKKxEddpn0 INO2A+H SETi3Tg9BOsEX+AadicWhde VTwrJApQgyiqyiWzFfrTeJD kWR5XcmLP85krh91OrIyeEQ i+y3EKf psfp2/Qd+jG9SD+nW1uc6zH pKv77OromHDJxhs3Dm+ROeb /2bxmLQtHD5gP7yeczg8ejt JNvF383 gmrPIsirrDLzOK9PRGmSSUW j9hXcN1CCnJ9ub8Zmv4pZ+u AzXgfKwGAlXAqJl/jJfJQgW UhCZAVZ TdYNV/MsxQ1bHbzwesxNLiZ nyR/JI3wyqtzdEk3v1pS2po hcuoAup0/Sp+oy6WF7rq97G D7JRnGc T4ZhAIGKDH3aVlEeq+RHmSc cefJRJ7Dm0oM3CntKkDxU71 LX5gspbHr2TaundSr0rhuSc qFMVaaj NCoPKZuUVmUvnuh+pV+Ntro WsporJ9Qg4z98Y/9Dgi7HTQ CoxxAVCPCbHEIop01fi+xT7 gizsa1Z eNQ2X24KWVjeepx3IZdcn1U 71BxII+uaAFboqxZEfo47Jf 1acAjgR3+OzSXjcad+D9ckG 5TGI2HG mSrqeGedlx7TP3M9dDm8QNl kzfFzM4sBYzOfNzlxENyzQG /p32CMpv7D6ScL8WRqo0KNT pJZSis5 XRjrB21OMUYzvOW8Z3mfMup LMApkgcD8nZQKbbSO3ME5kl tJJxDPuHtupOeLIwIc7cDI4 QY3rVOV iozSK0HncYbJdYTSARr0BIg 1bADr15fmjDPmhRmaKHKBQw 7x8CGvZ1CyHNEovX6F9fnzY 1QmaLag EkEeQcWCigQVClIFyYIkQcR zD/VMdRAB7wQ+w9uE8OsbGe ZIvQ0PUnPosFhLtLw4gW0EL aZPJP1q jPBwPRK4T6EYGq3RUmhhHCR 0FKwTlIO1e2HPSCpBHogHHr 8H+UPE+4g+oImNp4hudAeMi xHdiJcQ [id number] [id number] tS1t7A (more content not included)... Normal [facility] P[facility] Rehab Please click on link to see report pdfCD:[id number] OGOwExm9NKOmSxUE1pyjy4P MloOYVdZHTjILVgSJYVMw6J A6rpaoceOOHmPeZxWXEe JXFnWVnfvdQzd1WygBS0PTy uMu5BqrKoqB0xZYsYW006aQ ZqwnKoS92qmO0qKVRub37vY h2XuaVv sFzkyuIwpIQrWSF7ReFtNxL xMzExNDUxMzQtMDUnMDAnKQ o+LwltvqHiGghROPQvPE5rt zi9FOeu WDsiRMJfKj0mfPSto4AlzXN 8w1NFW6EmerIOAO9uPR4Zkc cfkH8Dy6pcRCNgeOumTKYOL 0ZsYWdz QEInKg9Rg086XpOfmLHdKPC 9MOSdRwe2RRVcKTHyDLBhTU 6PG87cy6HxahfJwWP6jJXgT hwBV9F1 WC0ZJIl9Hb6HuPNyXaD3FNt uSZWuaGfaVA2snWYyZLLgMl 4WIBGAUTklrFReOrL6Ir5ZC YAgU6b9 PLJsWZwzZHVfRB50GCuoBEi kMGIaU3EjqEZnVoNzHz6IDQ QhyT2eBEI0MIqmSSQ6D0yar GggMTMz BoyaEUTtP7hxrBscQBl0Yk5 +WfOfFF3tmtz8CPCre6LiRg j7Uw1EzECeYZ6Ui304Vc1Zu XY5oHCq RA7CheGkWUimZBklElJbMRG izcXuV4VzgFUqDIHuqNTDqR LsvEDSELmeFaseu4DYkQUpA GYlFw5K TLH2N8bhbtPeSqURU6FiW41 qwA3kEC2HjW8PnuDgQN6sq8 VajhnIC4KjzlTIBKGitapoi G4nVMHf BCUYJf8LbFM0cMZsZkPcSfg gMCAwIDAgMCAwIDAgMCAwID AgMCAwIDAgMAowIDAgMCAwI DAgMCAw IDAgMCAwIDAgMCAwIDAgMCA wCjAgMCAwIDcyMiAwIDcyMi I2MtTcQHA3UHWkZRQ3IdFxF uw2OPGd AMTuOHtlKta1JfNpUxc4IEF 5GfPeDDfzOfT6CmvqQIMsCL AgMCAwIDAgMCAwIDAgMAowI DAgMCA1 ANTbQlQxSDS5IoM5OHFeXMD 9DDAoFmO7DMFxGqIyPZQ7ZO EkUSN9GrBmWonbXOi5PpUoM SA6WEGf RoDqFRVxNyh8LLJ9CgHqJnJ hUmIuFSG1IuRcDSAsEQA9OB 4+AjDkNB5hspe1ZZRqn4WiI wq8Zs5H jMMtNV6Fv282TCAgS5OvzMR lhazpAt5viX9cmXLhQ8FauA UuLLTkpTIHKMckCwfhH8KmK uQFW6Nk zhGTQs00ZBclVzP6AF0tQhQ pTyIvSSPjAVA4YUgbLSevg0 drR0ieVCKkYGT1OGflV0Wuc UggNzgK D5I1ZW3EONs3Ja8NqNKmeRU LmvigPRVnDc6HUZWLZXohxW ZgDxZ5Ux0JQGTwS6f5OPXzX QovQXNj GM73WOglGGfiHFFtH8NscWN cXlCuYf6RDFDxvG2qFPR5FZ tgGQK1B0kdxBxjFiEcTMpdD MHnE2vr lYuqEPf6Av1+FfNvNR0hmga 5SJXol7RsXsu0Hm4FsCXpKV 6Rg347Bz5OsFQ1aBHtAT7Gy nVlVHlw MWhdHuOnFMVxwiHvK3CplSM tNYQpdXQDMImmMnbdv6SXrW WtBKKxAi2ZLZK9C5gfaeHoD pKJV0Es O04ljU2mXK8HlZ7QzhYnQX4 iy0PfdhxVN7IkmqXQQSZwov gigH6aVQavPAYSYs4BsDX8f HMgWyAy ZereKRKfOGE5UmTmLLi0OCV vALNjFdQmNFGxUvEhZXX1HP GaAflqFvDdBsG8NKHuSujqX IC1JPY4 EiZ3CJXfUUX8FKL8ZtT2ZIG jZJJ0AFAsSGKhAXTqFxNjPY SrXBu2JpR4JSY9EXDfBQM5Q jIgNzIy HIfePxS9HlJjLiU9QLQqUGV 4CediOhIkWLA0FEB4UGWzUc GwUAYpVXQ5TiCAKwXpYGb3N NO7Ihgf LFC5EuLyPoZ9RWHmKWZ1ZfU qCpE6YZv2KDHxFPF7XsLrZK MyLKDzXwUlNJShBMF9ZxO9Z TEgNTU2 VIKyMXZ0CHYhKsCuKAVfNWR 7RHEhAjx0KGO3YEJ6WXKwBk u3RAx5ZBo3ZRMhYgYpUQIoF UX9KXUb Cnb2LMC2EaHrVwVxPcMyRNA 5PdK9HtpmGLS9TBW8LbQ7NU WrZh4SUE1cb2SfExniFVBwL moKPDwK X7T0jFCrS7TsulIRBBXnvxm lfG4vFu5Ev856WzUyUKLsKX IdNVdYXLqdWgqbY5CmWtZHP 0ZvbnRC Jy70ERfkXkF3TN7oVaGjEfA uOGHhLAGsHVdhZAfzj4nlX6 keDDWjDEP2QZtpF9ZfqLtoD orLV8P0 GM1AUMf2Zs7PyEDlrXQQtod bUNQaRt1HUQLVYDvgsADwDx A2Bk5QLTArH0r6JKMoEMbiJ XNjZW50 BOktBKcwBYXdI3BgxXTmIxY lGg8OGMTvbO8oTSM2FRkvKR P4U8efcQwtZvQeGWqjMKJaR 2lkdGgg NDQxCj4+PnQyIS7kunijJZV cMD3zmsr5VKniNRggSSZcSq 7biAdnZ5RlaYygJZCuXAQ6Q DB7oPUL A7Mnf3WNg616AN4GceliqC4 HCb9FvOQicBRuLZCkOlQGJ9 dxq6XMqULyHVWqLVtjKG5am 2Rpbmcg C6zyvrIvr0yAkfRlDPblZpv pIm2loELuk6VpgNN7v6EvXM NnJRROB8xoLJZozsBnJCN0V CAwIDAg MCAwIDAgMCAwIDMzMyAzMzM xWWG9BRLjSHJnLeVqZer0GS P8CeO1MUQsRJV5TNU5ImB7F TYgNTU2 YIS4OnM7RODcTSO6DCM0XpU mQNVaADBcAqJzLQBoGMU9Wx X2DsctICU3RwDhKkE3KFTnO JF1Hwev HlXzIKN6VPLdULNjDIY7FWd tAbw2QhAtRug7BYD5UsQhHY nnFoG9DkxpBaYaWWQxRPR8N DQgMCA2 NjcgMCAwIDAgMAowIDAgMCA 1JCUwIMD2JSElEHS5UILpKI G2GZE8KWY1QYPyXBB9HGOmP iAwIDUw CAEdMfMbEVAkWkD6NoB9BQM jDDK7WKGlXuJbYOLqLUWhJm lqDXA3KUCtUKV9JjMcQOKpU DUwMF0+ PgplbmRvYmoKMTEgMCBvYmo BSDpKE7cxllx6iCRrMXHhJt qaKUEmN9KzBIZ7AyDBC9Jey HRlciBb F5GqGNPkPUCwv9WcAHc+Pgp meTZvRG1ZeWdESP4zOIAGH/ e+j/k2f5HVm1iEcdiuUmkBO AIkgRiW FMyNY91JB5SREGxrDCGlMxP QyoQCgpvQxhJstQIBRQGJvi DnRWQtHzFTavO1eHELLt1hB CxxximU OmvDy64XYbWoIv/oTO07+e3 v3nPOO/ecc+/rxhXAWHx0sW R63do1+ks5hw+x4hiTWb6d0 sCt6icx gtGaOJZIVm0wUn/0N7/YuBg w3reX3cFJZET/ec+F6Tg/if gXh8FWmRK6FjKbYi7RHw3Hk 64nrSoI AFk878WdaIQ3QK1SMINBDMB 5f87Wu56BwluOccW41AfkF6 7zs5ehEiCKKW/V0HzPW+OWY Q6ZYZXh 73m0geb4wygicMHNB7QYRYe W1HRm19t9aRCIDX01M/hAHs QLJSC3uzMGDoza4BdvVC+98 HoqQA0w NEVQi/Wm2E9PPXz9WiWgsuh gbRZ/Z3Iv8H4rKa3IY9wUxT g0dwvVsn5QA+a6zM5zEdqai 9BnA+xC Wy+y82ud5Y9pxuyhEQom+YT 54nsAFm1+tejJ6o5A39/gQ/ rpLQCADUvJht017PsmNmEfB D9oNNua HKktSf6qWMdQUycRC8rIx9S JqSCB8cLuQM3I6JFlO44U63 dVZfEZ8BPXWTM09rbnIr5fJ k9SEzXb k2INZPaFQqqTgIDcSAI4Xp0 HbAhPn62gerMTq+VLynLlAE qfOp/n7BJBhJPKpmXGXijZw hm8UtVc YE7EjvUNdVLNbY05EldXWwn PhyECJ+EcrC23XlhqKcZxVh RTwT2TeSVELUyjlkjqgU778 cM9dXPj m5zA/U3h96N0sAvXQ5Qdqes Og2uQ2ze9QutevNq/o19IIN qhAFXmjAd8DY7A0eJnodvjJ nm//JH8 kUIU0+eOqSza7sx9agObM9n TdtBi9Y44ow8azFCyEFnQKZ yWeoGdCCzpR8JcUYbnHCkLL IaxX03Q tiKpEKvCaSo2lVoLADyUOmX CPY1NVXx7VRygIYGHgFc4LA 4t97jogY/U56NgcvtBco4x+ qroXLqA KehI4qgtC/COLEGu0SX4uW8 Kavitha/Sk9sglPNuFIwuKY/kR5 bzKWRMHDjiZlv6lZ7tc82Nb u+Si+X5 8n1Y+9q7wrjNq1SepyNsGEL gceElHktteAKjJ45xjdZrop n9Aq5noSTV5yf+pNz6SN4Zf tfmQ5Zn kX2xc7cII6yUiBrjW+2obZZ lqM3JUXiMqQM68qlc4eC38L /Q+3UdKVHa0YS0TLHfx91lC RrNmmzL nWtOvy5p90Gbsh/XJBtUymd hgbQImpRaKYpdhkNktbyZvC i54m65SKbQMhtkxS88uFIlJ 0Q/6dPS EbaehdinmOkVaZfSyCaSWUo tOQEq8hF3eePM51hQxM8WAh XzbFz7EMgJgqFDe1kQvKKlj kckl6av xNTL2pV3nzYsJ+6gU+mTtsF MCPDnLR6x9MhnxPqOCvX3/V ftvLeySnU01SXrJobOUqylF cW1PDxk bLXVErZ2wYR9etNMXflNFkk 2oBJBHkHFgooEFQpSBcmCJE HEcw/uN3mdiU8soto8H/Eq4 eMUc2sk yTIJBgEOtL5IdVx6eDuVQlT vOdfV38MJqbqKQXYGLodi9K lBewV5 (more content not included)... Normal [facility] PAD Rehab Please click on link to see report pdfCD:[id number] AXNkTqk6JIYaWeXB9xgmt3B GpwOJEdOVLeUFZmVMSRLn5F V6uhrkthMNFgSbAsRXYz ZTUeNHajjnUzg3KngFI2LTc hVa3FjcXyhY7qWVqID822cW BasgNtK66kgY2mKTQfq16vC u1LniQt gCpddhPifAHjBTR5ZeXrNrN pGrZoNDB9EYOsHXZbPKPqSX o+JpmoxnEoHeqNDPBjPZ7hn wz0CVcc OUmsEZEtDk1qdKPvw4VesEH 9e8YGA2XcvjXWRG1zKD1Bwq xipU3Jg8bdETOohOwmNZTON 0ZsYWdz TCGcHd0Oz482ZhTkbKVxYOB 3WMJoFaw3DGYuOQJqYOAtPB 3IT75of5EnahtJhBB3fYUfI gpJG2T0 ZC0MREm5Qo4MmYDlOqC6RIv qQPYqtHyqJF2knBRgZSWfYh 2NOXZAWDruqJGtSuE2Jv8UC NHfX6y4 XBXhYVywKLJxET40AJjiCZz qQTAdF4JrqAMaNxPePl5JRK YsiE0qMGR8ABhzSZO2O2nfp GggMTMz OssvCBPwL6lfaOzpOBb5Hd9 +ZoPePM8tsto9EVDuq7CqEq c8Sj7HkGArWL8Il335Er1Cm MN2jJNw YM6DhiVySVpmXSwlJqDvOZL jvrToJ0YexUIbOGQmgOTIxS YnkSTGJGwnFlpnp9ZZnOVcK CPuBb6U VUB3U7hqbyYjKzLJM1LeV67 ysM0dYS3VaD6GepCpBW8gm3 LhqveGD6OfnySRCSIblibnm W9oOECd MVJIFu4LfVS3sJAiZaLxGqq gMCAwIDAgMCAwIDAgMCAwID AgMCAwIDAgMzMzCjAgMCAwI DAgMCAw IDAgMCAwIDAgMCAwIDAgMCA wIDAKMCAwIDAgMCAwIDAgMC AwIDAgMCAwIDAgMCAwIDYxM SAwCjcy FaIfMIR8QzI8EtzuYLKfEFZ gMCAwIDAgMCAwIDAgMCAwID KVHHJdALIdCUW2YOLzYHS9W DAgNTU2 IDMzMyAwIDYxMSAyNzggMCA jUVR4DPSrNaPvDIW6FZYsGB LdUSH0JAN1BIRdFmRzAEEzF SAwIDAg ELL1DECdGq0KPQ5hw0JgEtv xVRYvOafOYHfKR6J0eBYlR1 UsguGNIMHurznheS9lYw6Mk 250TmFt ZTXuDWNbDWtKAHxpSxryZ5F rZtGAP6YonjAQAr96AVpdUs M6DX2vJrEvQmXyBACsIPMwF QovTWlz p3vzQ3iaDOJsKWB2MGjxX8A qjYhoLhmRW5E4GW4CBVl9Ye 0KgCDfrCHExvxrHRIjXo8OQ XBIZWln rHMoNbV8Cl3CGZMzU6d5KIL wGMahQQZfQO55RPhdJBreJO GkN4TbwMFwZqZxGj7KMNEhp M9eHOR6 QInmOWS3R2mzuGpuKxQwTIj mQQQdD9dkjCowSMQpAl4+Cm LiPN6mftn2GJQik1XzCnf5M d5IbRFu KN2Mx698Uf1WzWJ2mSLwGW8 UcnVlVHlwZQovQmFzZUZvbn VuY4PltAChYUYJD7DytrS6P 2hhciAz MgovTGFzdENoYXIgMTIxCi9 YhnOrAAqbThNwD4dpUA8ysD MmP58bkQ9gMt1Ek193BBWwU 3JpcHRv dnF2HRDkRtwyB7xhfDpqHQz zEuk2CCUmDNKuYBCdGICmPA N3EEYpXIChZRIzUMShDfNyI uP2HOVy ToeoUOC7CRP9YjX4UGUkHPA 9CVB4XlZ2IASzPDW1TKI7Mg C8DEVbAFD7SRA7FEGuCRZjP AowIDAg RQQ5UxybXBX6GwCyHhNnUHH 4RgOzLZw4IMWmTDM9HWQhUI R8ZiIsZZhqGpd9SzPqJov3A FW1XvZc SRspTcE1QeibAkHtSRseDsD wKGe6DWTxEZMlPRGfNQXaFX nkKWWgGBD6ROMiJGQ7SJCcX TM6ONPq ONA3QDT9MJH4SEIxJCM8YCS yMiAwIDUwMCAyMjIgODMzCj M5SrT3URKtKYF2YBFgWfVmP DUwMCAy JxupLSP4KYVrIEU3VjZbXLR wIDUwMF0+PgplbmRvYmoKOS CqHF0fczf8ONjkOOldLRIpV q1nkHNy e8OoqLJ3q5QVL6IthiUPGX2 zYW4JbapkuL8Wj8ymFQIKH4 DiHAyyNUBrZj6Oo385HoOrp CBbLTYy KZQoAzs2BRBdLCOvIJQ2Iq4 UK77qx4CvsxyAyGD0kPWqIt sTG7K2AC4ZIHa9Wa5HzDGbA uT3QBpc ZJHzsDfvWJ9lbWItJTdzI1D iBLVfX4p1IKfaNphqRHglsW acwEA3XFjPW1XpM6OyfJA3N PJUX8Ro x3ZrelWvRGRaMrnpLBHeGTl yEvSaLXHKH48zlPgmWGHbTR MsLVMEA4E5R1htUKBvEHM3G Qo+Pgpl bmRvYmoKMTAgMCBvYmoKPDw CD5I6sGDfS6VjrjWWJ4S2Kj R2jZZiY4SgjGBJhXIqSn3BE YRcCi4m aWXhWYLxVSrfFu4aBT2WGz9 ZwDWzjNZpYMHnKnZVN8pxj5 QHdGGnJDEbOCkfSR0vn4Eqg hcuJ0mk xtNly8zZomXiYLuoInidGd3 osCUwm9FxsRR3z8QwYRKbEG IJT9fmBYEshyDqBLH6WQToZ DAgNTU2 IDAgMCAwIDAgMzMzIDMzMyA pFCZiRFPmVpX7RHXmDNXrDA AwIDAgMCAwIDAgMCAwIDAgM zMzIDAg OPKaZoHtAZGnWErmHaE8SgN vCfLbKThvFlSgOZInGVZ3Vc hfBmGaDVX9POUwTNAiUxCrB DgzMwo3 KoAwIki4NEN5AkZ1XkacFkD rWIP9DrG8UVKlOnAqPGSpDF K4FQIqGmU6BLMrDIKaFTZZK CAwIDAg AOS8QTGuRPN3WGUmGSH7HIN nPlInCQEvVWO8DJMwFxs0SG MgYRQ0KRP1MXY2NWsPYtGeG DYxMSA2 NHUmKGQmGHygEBJ2SJDaBuN 8ULMeIAK2AHh7NJN0AQPvVN U2XT4+PvUcXQ4wccwpRWAxU H1gawr2 GMbpVWagNKUqJu7spCJiv6A reAS3u3LKK4QpquQMAT0wYO 2NphjmtT1MnICnwYRMFYbkQ nlzJ4Tr MdTYC3BlrvCCGr07JMkdYQX 7HC4nUbIwMTZ9CIU4OGxkKk 6QsLWzpA1nG6kkyBgwEaq4O n5DiRJz DLO3TPbzY7BtcXPbDnsSJ1t 5HLggA0DrF0ibIL0uZzjcK1 BaOFJbB1n4SZskTagjHHswg WdodCA1 MGnHO1YwW7UexSE0RKWRC8X qw1UulzGpAVZvXavuUUEfGD erUxAjGYFAJ26dnNyjNBTkO DEzMzMK V8Z6M0obGGSbKJE8PWo+Pgp lbmRvYmoKMTIgMCBvYmoKPD gZG1G1oCWjQ0ApnnASV4A8A uP4oAWn S7TvjKMVnKThWq0JXFHzHl0 udCAvQXJpYWwtSXRhbGljTV PPV7NhrqR7O5tgckSkUdtnU GFzdENo ZEYsODW8Xk6DubHfHQqcLnZ oU5ooCF2foCElY18aiJ0oYk 7Lx180CKJqW3UusGCwvzPfK SAwIFIK I4yxLKKldhTrTXI0ONNnKJF gMCAwIDAgMCAwIDAgMCAwID AgMCAzMzMKMCAwIDAgMCAwI DAgMCAw FPXpPGMzVUW2WwMnKqmnBLX wIDAKMCAwIDAgMCAwIDAgMC IgYPFtUBO0EyIrUUOgNOWoV CAwCjAg XKE1FsjcMgh9BGloPwX5Qxb eHONzIAWwFQRuRMY4JlAoQL UcHYZvMuWyUPAtOEE4SiIzK DUwMCAw TNP5UaOlJAKwQTQjQXCcJYI hKfHpEElvTFX7WkXxYUMoFc ScJTLxFwx5IUB4De5+Pgplb mRvYmoK NDAbXKMyWsmBFVjVI1dzdsw 4aSBeOMQeWxlaXQEnV3DtNY A9GwXMR7PvtRUbxiTrN8JzD XRlRGVj d0FpSAt+EyzmmLAhGL8WwMu ADU9mYXJYH/e+j/y5a7ZEe7 wCecsjAdmEQAIkgRiWZHfJR 66RN0UL KJsvDBIkAlIQyoQCgpvQxhJ stQIBRQGJviWoCWUqRcFMtb L2lQTTBv1aGItnaxfLQvzRp 99NMkCn Tv/oTO07+q4c3iJXB/ecc+/ lxpRWBCb3wNH05qm5+ks5hw +e5vbIMc3z6xYu8ujtmhHmT YZBMx3x Wr/0N7/KfCuy6lxI6bEFLUW /ec+F6Tg/rbiWr0NChTO7Mk WnGi0IWl5Ic18aqMrOGYa21 8KsbHR0 PU8TFRHXLDM5i62Op74Bwvm ExhP88HovJ78mm9ueAmCKJF /V0HzPW+IGSB4QJYJc43c3q tw2jite jKYAS2HOKCdX3JQk60u5yDJ QAR20W/hMTyRWFKA7ypBIXr rp3VfcZD+44HlwLB0yKPSHf /Za9D6D IMl1BpSpddyywKJ/A0Ry0G4 yYx6TP1oGuSb1lhmPjk6BD+ t1aG3bNlyex7GeF+xCWy+c4 4ry7M0u gmtkPEor+GR76orCFm5+xlm G4x7B40/gQ/grSSTFJExOok 227OduAfGcEC6vDQlpEEhfV k6uECjA ZqnBR7tHu6BIcNNT3wCmDW9 X9WUbR39O75gWUpYU0KSIHN V53yxyLv2bGe1JAwEqn3WRP ZlHGsmT xWUgZMY9Wy1WdHvOz58bgkD So+VLynLlAEqfOp/q6EZXwZ VVrmMFLszAzou0XaQiQU6Ge qOWbEDZ eX13ZtsVDjnEjcTIP+DnfE0 0QkdhYqKmQnVFcM8YoDXSHI rlglmcxD708jG9oPQis8aA/ J4j99A2 mHmVH0PbsvzUi4jP3aa6Zhi xvUg/v10FMBoaBWIkmBg2RJ 2R3pXe (more content not included)... Normal [facility] PAD Rehab Please click on link to see report pdfCD:[id number] JZEsXww0HGRqDoOZ5zuwi6H ZuoFROgDMGrOZNoQMDLHr1L S8rvporxPPDrMtEjUKXi ZGDzKQauktNgf7LxfQI8GUw qFm7FgnCpyW4dBLkLF264iL WslrKrG13hbY0aAFCzx14oB p5FqzHy xFqqeoHzzIUiULM0OrReHiT lBtXbEFX1FnEyKNGwNWGqWL o+SvonbbIpWasTXTFdYA3fm fd1YMkk EEhcRXByZq3zeTQwu4OjbDC 6a1IBP6WnjdTIDH9ePK1Tzk mbsD6Og6afHDWbrXqaWMWEE 0ZsYWdz ZQKzXn8Px533UeMdnMPpVVD 7VRXbOex4WTPpXZQeEJOnRN 3WH16jr1KubtdWrXE5tNYcC ygON8P6 QT6YHFz8Dp6CqBIgAqP0ZFq iBOIcsZovEE3fhVHjLIZeCl 5FFIGRPFlubJBfIrH7Ri1CF IWpS6f5 CJCrIBpcOFRbUB17OJkjDKs dSZQcF0ZhhKNpAbLlHc4WQX MlkK8wAKS0KLfpKJC8W4pcw GggMTMz DhvaHSXjP5vhxUeuOSs6Pz1 +KbNeMM4zlvg9NWNlg8DvLq u4Eb4WhQSsCZ4Re941Ou3Vz ON6eTLa TW2HynOoGFndEZbbLiKnMBP tnoQsP5AzdLEkQDOvqLANrJ NzaVZOPSqsFjnsl3TMvDBgA VRpHk6H AZV8E9ugrqPfSTJYL3LiR77 dnA6nCN8BzU4IoiXyAH1er7 DamvmKK9RrbvGLTTDempxmo B2oOMOt OMNRKs7DfTA4uJJgHnAfXeh gMCAwIDAgMCAwIDAgMCAwID AgMCAwIDAgMAowIDAgMCAwI DAgMCAw IDAgMCAwIDAgMCAwIDAgMCA wCjAgMCAwIDcyMiAwIDAgMC AwIDYxMSAwIDAgMCAwIDAgM CAwCjAg MCAwIDAgNzIyIDAgMCAwIDA gMCAwIDAgMCAwIDAgMAowID YkCLU0LGApOSO7IJMxKPV1J TYgMCAw WDPrXqh5PKMcMLV0RMTxLYl 4DgQxSLI1AUBiQFJmMTQ2PM E8BGXkLlOhTX0+LzGoHG8ep lg6IPKi n0CfUod9Fv0GkLDdPV2Jv54 2CLLaH9BldNLtfwjbVa5wjJ 0lmOVbM9TvwJSpPSESG1PnT WdzIDMy Oo4Cv766NpYoaWJzSKG1KUM rNhQ0QLKwFCDpOJY7HO2ZK3 8yn7RutoyIsMF1hWLcQlkTB 0E7GZ4F UJr6Dg9PhMZiGkX4ZNbxHQZ hrFpgHY7vjXVlFZewP3NyZL HjF9h8IXohHfzcXAlffNwzr QP9INlF K2HdI0CbmGQ8BHMXR3Usx9S lbnQgLTIxMgovTGVhZGluZy HlYSDKD57bsNfoAHYfUJXzY ZBHP9W9 V0iiEUEaKHS5ISt+PgplbmR zZjmIFGFaBG9wuvh5CYvaJZ hfIZFxEg0xnKzzT5BauUrsX SAvVHJ1 EYN9kTZFR8Gbb4FLm605XB5 ZsccmvH4VFf7AlTZmeFHrZX EcLbMCR8dgh2FAvTSiXZFmP ReoZK7k b5LqrzzfD4enynZjs6mJqmO eMUfuOnbdYl3yqDBat4PxvQ P7s4JpWqYgBAPNP1vqOCPjk yBbIDI3 ACKuMWTwSBEmHXx3PZNxDJH gMCAwIDAgMCAyNzggMzMzCj V0TANvBvpaZIN8EKE3EdI8D TYgNTU2 RJF4NiC0YOLsLSZ0LOX6DwI 3XEJpGDG1NFM7NYIsTSI2ZH QdRlF5RNB3GVPbAPB4TavbJ iL1UXwe LrO9QfRlYmG0SKYuQWMpWXj oCdHqBZOnHyA9BAH4PxV9Xg FSNsVqMMs1GUI2KqwxObj9B DcyMiA2 GftiUsNxRCnrXjJhNBb7ROD bQVJ0CiExRNErRQHeCeSqOT DxKZW6AtX2ENHnMCLaRLQ6B jZ2HCGu Iom4WYR2XoR3AASrLsKkUCV dQRSzKZBnBzC6DgSWNXL7YQ L8ZsK2KAQdOBX8TMBwHcJ0O DAgMjc4 JNG2SpA5BIBrStDkEBUdFXK 2PHPxVo4HBW5xu5LcWipfBB NnDnpBXEkVJ0Y7vTAsZ5Rev nREZXNj mbxwpF8yKn5Dq947YzYuAPO qGEUpRLqxLj7nCZ5WCk3UoJ DkqvAvMzafCa0naONBn6beJ s93Gdmg JNH5MeVfVQSwSZGjDBLjJe6 MxGSuhX2mG0wqqQfzKta0Kr 0TuDUmQWX2VQxoU3FwyZGdZ qaHT6l9 ZCmpP0OvN8frRXMIM3EoqZw bjOctmFP3MUHEY8tZLTmaeU BiZWE4Qa9Dm8XohlZvKRR2X s1MEJNk GH74HL5eLBKCO4odVAUpmnp aETLsIq0JYHmTiQQ5cAAaXM YfXu9GwsiFtKK7vBR0AkfXA x1ZQC6c s6MxAxOtHOTim0SxVaw0Fo5 GgBCjGG7Hs864Zq2HhCS8xJ SpVL1MajOjOIhxGAssDiIbO UZvbnQg C2TwtGPeYHQhbFWXYFwrXxs pl9AJgXGeCNJdGl5EYDT6D5 rzpeCkYgXVB1VkB34ovT9aF D8VaZ5T isKeTC9xa3EwpunKC5HtckD JKIDaossmcD5pIKxiVKVFUp 8BiXV9bAKkSdXlRnrkEVNoQ MD6MyDx IDAgMCAwIDAgMCAwIDAgMCA zMzMKMCAwIDAgMCAwIDAgMC AwIDAgMCAwIDAgMzMzIDAgM CAwCjAg DAFqWGidPsC5UyAaVoAiBXt uXhG4NaxxDeKpZFp0GPE6Lj GhBzt1TJMgSLSyINtzLht7F jIgNzc4 BRL2KfNrYZblCvB3GyahBoO nJCqdRiHrFGDeHMV6SkboBI JaTTGzOZhyWKHvJEJ5LZIwH jExIDU1 PdA3QPXbIUT3XNOvWbDuIRU zVRDsMhteRWU6CXYpMfp3NP h1NSz3RTXzXfLyKTNkSBIwP XD3SRY2 NVSnVcJqQUHuMTZ1LDTrIVB 0BHY0Ns1+PgplbmRvYmoKMT HlQDKsThvNRRnWV9eymhu3t DEgNTAx RrbeKESyF3XuDFL8XjAVQ7G gyDJujpPiX6PvMYEaWVHtc8 RlXQo+HzwuaKMuNC0WxSuWQ S6sMPCL P/e+j/b8w0VUp3uKnuurKeh IJGAvnJmCOPrGS84GQ5KEQD svDBIkAlIQyoQCgpvQxhJst QIBRQGJ bjTnTYZqWjVXxmO3pFAEZt5 rLJriprsQRplGw55TUoJjVu /oTO07+w0r3oAGW/ecc+/bj wABADu0 jCA26lv9+ks5hw+o2khQOl3 a9oHb9cfmajDdUGGOYx3zVb /0N7/LgCpz7drE2mRHPLA/e c+F6Tg/ lslPd0DDyRV8ZhAbQl7CDc7 Hp71zcKrWROc095HiwBF0EA 6AGFZWYBL3u16Ei71WnteNn kS75Mta Z76gb5rvZfOMQA/V0HzPW+O GND8PMZVm02z7tfh0srusdZ NSN1EDHEiK0WKv25i7bCHZX R20W/[place] PuRRHBX1mxNHNfye3CzyRM+ 80MqkIE9rKMVOp/Px1G6VGW h8BeExlegnfGW/M6Wd9G2eC l7QR2vZ dNy0wlvNuy1CY+o6eD3wJra gp9BnA+xCWy+f17ap7C3uwz tkPEor+XK77tuKLr3+xlmO3 h2Y78/g Q/jcKDGHCDfSpo837QihWgU sPU8bEXwkWVghUq2sQWzBBv xAN9aZp4FRtALR5kJmWW8Z2 FUgA70T 02qOJbFZ8ZEHCGS31jyuZh5 dOn2DJpArz7EYCNkPMsgRgY UbZPI6Tb3UfZjAt61jvrOSq +VLynLl AEqfOp/b3OKJlNIWhlIJJpi Dapi4KiIfKX0AkzJQwNAIzN 38HuyDTtgPhyECJ+LvdK49P xfgGnYn TqKOlG0DfIJOLOdtwhuhiR5 97xT3qZHbp2dP/X1n15K0jZ zMM5SclfyAb0hX7jr6Byssu Ug/o19I ASeyCDDijAa2WN2S5nHtgve kTnm//AX0sUBO6+zUzUvi6g u4wzBdA6eOhtIq6J17pm3wq GBdWVhX QCaUiqEzMColV3JcKEjzCTs AGHdlA69EydAyUFkTvQc6cV qNOKoECtTFKG5OQPk8OBbpR CLHsZb3 VD6n75wcrR/O79DnbmjMzy0 h+quyXFnXFlbJ6zpwS/RFPJ Ss2BS9kF7YTg/Kx3ufhTTlL UmjJZ/k G7rcUJLESJstVpm0lZ1ys47 Llu+Si+X58n1Y+6b4nsjUc4 IqkpKhTFWmozQqDymblFZlL 57ofqVf hme4Gy7wuTSL6hr+kIx3MO5 FwitfH7DtyL2qz6fKE0mWfU vsU+2iaVYuxN5ZGXpCnHL05 zog1vN7 3W/Q+4FbOPNh0QG5YSZxb01 zQDuZgglUeQwLww1d03Veeo /XJBtUymdhgbQImpRaKYpdh kNktbyZ vIc65a57WSvVKalydQ62kHU oM0Q/6dPSEbaehdinmOkVaZ hMjKbIMGrxAMKs3kO7dyRD3 4vWmH8C BrUmeLt4VLrDwzOCp8kWiXX mjrxtu7twhIFA4pU4mlYqZ+ 6gU+yNdqHVGZGwSW7m7Ovip IgATzT4 /RtekKkiKfW91YBbIbtJYck kZbH6RVinvHVTOwB6lPV2jd FQOkmVJdw0dSSLTkHMqhtER QpSBcmC JEHEcw/pS4ofkB0trsl9J/E e9jJWc6bnmPGUYoTAeV5FbP a5wYeDWoOaGvdC84QWabvZH UHPCzoo 0DeCpxF5Fe9UrCsoOdAMcHH ICgKPB/lDxPuIPsRbiLOIM4 cMMWhL3AzNJP4TMxILN+rLc hNtibb8 1d4t3vFO2foz4i8ohImuA5f nw0s2BzdvhSaCt/qSlT7R7c NsrDZG (more content not included)... [facility] Please click on link to see report pdfCD:[id number] BKEvNvr0ZXJkWbCE7izur4Q CmhVVLrZIAdFWQoQZTTVl2L Z5pngwdiXOJfHoVaLQCf CMHeYEtktvEpi3DstEO3YAm bUx0UtxQowI6nVWmRA976eU SxpvXjO35rjO9aCFGtz48gT n4FehXq qXdxpmIaeHXgUYZ3TvVaIkC bFjUqGRA5IpLfFTSnSQKpKN o+IcotqmNlMpkWFNLzNW2ss wp0SApj EYbhNIMwLp6kbXCke2OywFE 9i5GPB8YizrFIAS4aDF1Bcx gmbC6Bx3dtBYQctRshLEIGF 0ZsYWdz WBCvXp7Av489JmDqxTGyCHR 6NKWfTkd1HGWtKYNoIGCeJH 7WT09cx3LbytsIbXH9dBCdD crZH6V2 JE5BHDc3Pt0IwZFlWrF3SMv eJOFzbQxeMV9naJSgGSLqBy 7QIDAGLCbhkQQzEuK0Xi0DP CJzN1k6 VKPmATqlOVNhNK75GPptCWa fLFVhE0ClrBZvCgGrHd3SHG PfhF2cQJC2MOukJQX8B2xrm GggMTMz SxwjFAWiH2lzdQwxQKi8Fi5 +YwInOG9ezpb3GROfa2YaLo q2Mn8VkHBwFH6Ls522Oq8Hb WH7bFTv JS9RmaYgVKsfOHiiHzRmODS pczNxK7WduHAmKALkwLZBdQ NtxKIVBTtxEddte6HVbEKiZ JXcRc4W JDT8E5sprhSnNjXZZ0TbV67 jjV3eGK7QhS0ZtmAxEB1eg4 SrlnnJM0QaguFFXYEtergsx H6rDGZj NLDDGx0ItSX5dGLqBkIpRqa gMCAwIDAgMCAwIDAgMCAwID AgMCAwIDAgMzMzCjAgMCAwI DAgMCAw IDAgMCAwIDAgMCAwIDMzMyA wIDAgMAowIDAgMCAwIDAgMC A9TyIlAaA0QVKjSZTfFJJ3I CAwIDAg TUX0IyFXOJTdOHB8HiErVZB gMCAwIDAgMCAwIDAgMCAwID UdGOUcVhIyFQQsPRG3JgZmO RD9BxA7 VBFhRVF1RFXiQjW0ATUnIJC ySbgtOGOjJBWdYVz0WnYoUT S2UOMyRuKtRVBgUpt1OTH0V iAzMzMg KCAwMTCpRLM5OEP2Yo6+Pgp hwiMoSuzLEwFbXM9uzer2QG vlVJayUFUzHf2lhMWit0Ezr BF9x9WY Q3StpfJRLD2kFZ3PbstlfK6 No0oeZGWDW2UcLYbyWWBvNv 5Jf861AeEomDCnOXJxWWNkE cs9GMRh IJChVSC9Fa6UV50sn2Zmqcq JpVJ0gMEpSncXD8N7EX8LGV i0Dm9CsDQuWsI3JFfaTPQfe KwmXD4a lNZiYUorI1KcPZJvQ2w7ZWk jAhnhMRslhDjqbUH4XSwJF9 OkY1FcsVD9YJXHM9Vnb5Fir nQgLTIx WubyFPWtMEhsQbFqJHGYL23 ggJaxWXLxTAAnWZIFZ5M7D1 jmIGQyAHB7EQp+PgplbmRvY moKOCAw CZ9yaaa0CEkjGTmsEFOxAk4 gtXrnU4FerYbyZXTxIYF1HX L9sGAQN3Ste7HVi189AN6Nu cvqaB2B y5zmAEGKB4TyyhN1M6fekfR zMgovTGFzdENoYXIgMTIxCi 0WbpHzYYiaRkFmR4znAA6cc THfM31f xE8kXd4Oh165IUSvP7OvpOU susA4GEQdBulxR3wolDbcKK stZpz7EOWbJWJ8ITPlGJQcX DAgMCAw IDAgMCAwIDAgMAoyNzggMjc 9YLG2KcE4DHMfISY3RTZ1Vp Z5WHFeFVH7OEU7RxV3DZSiY PG8NGM9 NiAzMzMgMCAwIDAKMCAwIDA xVuUkBPnrZyK3HhCiPgFjAT M5RoT8DVFiBks5IRzbTgXzH zggMCA3 IeHyZgDiBBqmXna7QfNdSwd 9QGD5JlCoPPdmOrI0QwupHh YkIGalHmKiBBp9LUOjELEqK CAwIDAg THigBXSoZCK4QUQtTsRlNDW 1ZzA3AGLrPWE2ROYnTzUaSC LcOAErMqmbWUW1FGMkMgq3I Sq7VSo2 BGNtEeAtJGAvMQB1FZEwStt 8AIG8FfHsJrViBsUkDCL8Ya U8YuglCXQ8TGD8Ox9+Pgplb mRvYmoK MECoSV8qvdv7FQkvKAsuAML iLz7myJHgm4WnnRO4p6JYX1 RyqqVXFZ0oGS1UhhbykC5FH p9AxNCq luXsLdkjBk7uhEDCh9elIn0 2NjUgLTMyNSAyMDAwIDEwND WpTw1DqVOfbL8bN1uajRkzK db3Lc4N sWHkOFC2MXqnO0JdbOPlKgn JT9u6JZinA8PaU7tjBRAUV2 RgnNhzjTahhKO2EZTXP2gNK WlnaHQg KFK4Nl3Nh1HmkyQoEBU8Zi5 SQXUnGV12SG4sUEHIV2tsSF KgexdrYLNvFx9PRVfWhOG8d CAyMDAw Bb9GbudPmHZ3xVL7AYRVTv7 JIY3yu2DjRkHhVWIil0QnLl d2Ve1OhIIgSN4Nf467Bv7Wq WW9rRQk NF1JsxYfFLepNSryBnNtDXQ krrXuF7ElfULeKILFJ5Apaz P7F5eyjaCfPqheLNJdoUXsI XIgMTIy En5PqkOyNRkiOdHlM5ntQR8 kpCZqN02nsB7oLl0Vq774ZJ OrN5RptESybgU6TXJfFfseZ 2lkdGhz VUjbSpy9FMHaZXXtHXRcIGu 8IVLxUXOmOHVnEBZoFAG3BD GoNcXCPrp2GSX6UXE4YGFuO SW5IXV2 WrQ7VHPtULM7KHR9AzD6LJN xFEW5QSHbNZQ1OIY4XLAoQN DiCUpxMNTwQLI8UookDeV8X DcyMiA3 LbLfSvX1ORRdKUCoVMUgRhs 8XQPcDKJaNJxlFvf3LoTgPP F2ZyjiANS9NuCyHmA1GQTkQ SW7PdUu NPM5QEZiQRVpWPCaGDIdTPD FHGOnQRSsIHW7MQR6AaH8JY NyFES4OLI7XiCnJxutPFD2P UW0CxNe FpWyZXI6SQVpZbCnTUjgIlw 6VSErBVD8UPG6UdSwCZFxEo L0QTOnKhk0RUP5FmJ8OJKrR zIyIDUw CUB3GHFuWUIqNH2+CmVuZG9 lhqurSXAmRH9dqtz7WGwoGY BzE0VsJZQ8TGTbCv7GLL4nk GggMjg0 MAovRmlsdGVyIFsvRmxhdGV EZWNvZGVdCj4+RxK0fsHclS s19rZXmDBJ3GN/660T1WZg0 0nKWnjL DhPRCdFMIOEG2kZSZbbF6DI 9xPHvyUOoCBwPgJNIASgKu5 RiYnpTZDGB7WtOWadTDBxMr pDK5P7I i/4Vf1LFBfvFRbqj/b33kgy hI9M/+qi1hOjh/b4738vtfc e3ckqmjLIEf6pCTM73/Trtx cvGt2O9 QiTlNTTfs+jLh7SVTstnOjW 3GQ5lT10D/+NuopjLROxyY3 446hS2Z/TuA5n1uvcPVu2Kj P3H8SB0 bQMP8jZ2g6hDSEGcLp0kUz4 fvHb99dsUiI/h/rBirtn8F0 fKU+B/Cf5a8+f103MUbmgpq Pma+ub5 l441TQeVJ9jT/23X+W+1TIP UMj/pjXmy5ShdlphUJS5aSG VTO++yfSgHMDAqp0+lHsqmN ZY+hx7C HzM4kB3cel2PZOpQsBhtM0Z 5sNWCmRWjnbVZ/AKsegfy5H 5+mp+0aZDEq5f3dVF0ME1Sx /G20It0 hD3Yy9F1O9jacV15K9MklRE usMmQVvYJ6+KT1XHxwtPAYl 925Psr+pD+yhJZPguxk/CJ5 5utXOzV QcUpBhXmdtDVKcvYiEZp5DG S0beAYpYUN/MdvIMb/LQQEP AwVerharb4DEresfYDqpnIt N+jhVi5 qa8ocGeZqqjcZKrEw4IFwz1 uxOi6PP4yPB7ZVDqxLYGhPc vnFLhccyZ39nTirnkcecRje SONUmk6 adJmpYgqJZv99fMRNKj1SH1 4Mj3wNwtCbxkHH+xQ1tq0eC 7SFXQnFmLWNZPNYksgAcgat vmbEC1r y8Gs1LrDnD0uo9sD+3wCqra vNyAgZZ9fF/Jj/G3+Dv+Y9/ LP+BoGBR1yuBJqyPZAPOaMs 4Z3bDWg WMdCD0crPIzxqV3Vm2ow5UL adR5bPVzWfrvqRG/yinMqjU QxPqogpUphpp3w6JKlTNPo4 yKQY/Qy pIc+N+vFZX0ZTmllFwgC8BF WsV9sYzeDxQYsDfr0kk8BHo RfrDC9gJmeDnbD+5D0jnjJR vZlzl2Z XyVfyJfwlfxx/gR/ir+AE9n FT/IP+IBR4Bu2IAZKWS9tUo DId7JEEHWcXaOYT8WY6bZmR ejDvkWL k9t75nKrplH+LguZP9JTcoz ZZdMOCd3tCckW3zQ0Dccjmu nlDtlq8ab2pRUYileO++Qu+ WL8ifGs JCsTIVOVacpCpUlZrxxWepV C5JJTLkeVprfgWs1wN+nV65 4op0V2M+d5i2o9ei1Tdbgyu IWXZj57 FMerfismIJF2cqR7FGk3H5r iOKhCPEtLhGXUJNUIUcolOs lRzelHT9JE3rDPzLXgjWXH+ oQDUqo8 2+9qf3G1gAsCkfjneXOxjAm iAAkkIqoEXhGh0YBuOTW7Vr ma32KrbLlQjvZPrEcmEzn3q 5cDVW86 A7eDp1BuDg5GEYRN7eGhtV4 3aV4eI72xYJsqpGUTJ40xEL L79IILrxXq52CbxccIstfeu v6bYvW5 GxFDEn8z7aQYc2d9iQ12dtq xO0gXqUoKa2eVRp5K+TbNsW gIXqORek6DHyw4X/qGiQG6M bS14UGc LqKu8AFrIyuWVCUvG/YBe4E 9JHnhQaeQfplxM3ZKl3l82D yfrKdk79H75vEy6MZLu884Y dcmxSbJ Cl1Ner0qV1C0bD3gApUveBK 5LOoMrTXiEm3Ii1OWRS9szd Ij0TEz (more content not included)... [facility] Please click on link to see report pdfCD:[id number] IBNbWei7NTPcQcMQ8fzbr7V WgfBYUzJRNbJYOhJABSIm2J T2uzuwojIUXgXpDyCSTe WCRmBZuvlpJar8LtnZC2RCf tOv7VlqKiiL6pJPcXN625mT FllgYrY99fmV4wESMqk51fH q3JpfBi iUuuxpTptLFhWDX1HsPgTgR xMzExNDIxNTItMDUnMDAnKQ o+UedrjaUuBtbPKPEiLB5or tk5BXqe VWeoNKUuZc4weTGga5UgkZI 9i5TUW6QbygVWZC8eWN9Dsp hxuQ0Sg7rhXQKzyMfdMSTHB 0ZsYWdz OXVmIz6Ml832WqZruRLjQEJ 6SCWeDkw4EOGnJYOtRJTwBR 7OB20lm8McvqmVvVD4gEDlK ncPI9K3 VT1TMDf6Pq9RuXFfWqM0WIx lKGMebVucRO4ufPUdGCWuRv 3HJGRSJInupMZzVuA5Gy4AS CIoB6o1 AYEdJGnxWFOnHY66TXvhRMq oMZScB2OluYVkAtYcYo0LNG OcdR6iMUT9UTfoMCN3Z1nhg GggMTMz CaplRJWuD9zadNvhAKl2Kq3 +IdRjUB6wlnt6VAXqd5FxMa m9Oa5JnANnWG9Zk260Pl6By NU1lCZq UP8YdoYaEJgaHLdcSqJmHIQ klcShV4YljJYiRRAwgKXFhZ DogNVZVQfjYqazm8HVfNObZ CJjZo6O KFV7Y6jipyBbUtYQL8KaB46 rzQ2oSO1TyE0DjqKvMV1vw1 PnbhfXL0BuqxKAAGPqwxdtc Z1gZRZr BHGTXn9NvWZ7yIWnBtGpXaj gMCAwIDAgMCAwIDAgMCAwID AgMCAwIDAgMzMzCjAgMCAwI DAgMCAw IDAgMCAwIDAgMCAwIDAgMCA wIDAKMCAwIDAgMCAwIDAgNz YhWGF4VuKhJDVkHUEiErbjY CAwIDAg ODMzCjAgMCAwIDAgMCAwIDA gMCAwIDAgMCAwIDAgMCAwID UNAREpTXNkFQV7YYAcDGS5N DYxMSA1 NTYgMzMzIDAgMCAyNzggMCA sRFD2FLU8ZGvTIgEcNVKfNG PeJWJyKvj6HLXdLkGaFWOcD CAwIDAg YFB7LF0+WdHpNT8yypy2VBR zh0JhNrc6Bq0UuAMqUE4Ny8 85BXThB0XbvSGrlauvYc3pg A6nlCQk J1FdpYZjLBZwgUCUQQuvZqb kO3EyLyDGE6SgenKIGi07JL axUuA5KE1yXeGtWiMnDOOcK ON2UByn WWrpl8xvP7haIHKhDMU0MGj jQ5KkhPzoHihNR2F8EJ1TDO g2Vm8XqELanSTHjwiqKPUvE t3KIOKL FDoqaFTuUxC6Pb6MCQQxP3s 2QKGgPYgrISPtYW90PYdnGW hgVJRmD6ZgeVGiZlPlMd8NI DFhnO7z ZBL0ZMukROK7U1epuZyxRkI cIPlxJKSsM6dswRfbXSf7Wj 4+SiCsVM1nusx8JMTyq0RtI ns4Jo8Z aHJbTF4Cp011Sf2VhOH2vIF kCZ3WdqYrLZbxGMkcCvYgDR DjddMjB2XdtHVmGIUazCHYU AovRmly p3HYhOTjNVZiQb3UMCW5R4k ungDvWkILE5QtQ69kqK0kUH 6McG6OeeKkTU9ht2LagdjGO 0ZvbnRE UJOkojfxnU1aSHfqESPGBu7 EnYL5mXRoVuRjBzxfTYUpMU Z2AdIfMEFfFQCuDYOfRYLvT DAgMjc4 PYMxVfleRtywCur8PRZ0EvX 3UYFqUUN1VCT7TeS2XSDnZI V8UKCrSDW4TNW3VeM2DDIkU zMzIDAg DPAmYySgHIBfSOlvFcM7QpF aEuWdPUenZoA1MprbZLN9Lt hjGnXyEIZ7OBWtGEhnIoE0L TEgODMz NzhbLjF7ZgrwStX3IFw7JMJ 4HeAwMqA6XAGxDAO8ExJyPf F3HJy2CQDqMRAeXuVlKCCjX CAwCjAg IBLeRIH1SpC6YGEpSMF1WYS vIGI7LPKxJlHlMHDeAPG8ZX CdCrx2QYDaJAM4WBQ5CUW3Y DkKNjEx AEImYGK8VLXlNmRwXYS0FAF 0BWUaTlUrVFYdGHP7BIJuWs e7EOR9PkA4ETNxEXSsHW0+C sXmTH3g zoh0HIKyc0QqLkn1Aj1PwFF iOV2Da524UDWhC4QdzUJpfd lzBi3waF8ccGLfR3QzeXqpo mktSXRh xYuaNx7HwXLimhPsQcpkIs2 zoFBXe7biBp66LlKgKTA0Sv GqNlMoLMCoBhAvWe0JjYRvb I6cJ7om cGfvUgE3Au7BnYHvJEV4UJe iI5RttCRoQMOWA1f3TIcvY9 YwI4nkHA7sECweG5HqBOXuV 7h9MGRk ZLscNFodxIjlyHE0IpAGK2O rZ3SioZD4EVIWU6Lqs1Xaku YnCSU6IGjwVZIvWNomWxLuA uZRM80e vOwwELLmSFEwNteHP0B2R1u pZHRoIDUyMQo+PgplbmRvYm aPDLFvLDSxLrnAKFrVO6U9n UKrN1Kd dlBHR9I2GsH5dICsD0HhzRU HeYNlOq2HIWNaBc2lhGAzP0 BylQHxdX3AoWJrxVHFD6Lpf tZ8A8bo ciAzMgovTGFzdENoYXIgMTI pSe9YdvOoUYinKuMmU8bnDF 9rnVOjI65ehU0uUa3Ii030X ZImW5Vk qRLdeyI0ARQdSochM3yzdBp xEHxfLnK4LICiQTOxILGdDQ AwIDAgMzAzIDMwMyAwIDAgM CAwCjAg Nmr1KWTiMJIiBSLvKJDqNRO gMCAwIDAgMCAwIDAgMAowID QdPVI2VezqADU8EgDtOzM6N DAgNDU5 PDTxKRG2MgZqYpYsWPLvGGK 3KeReVIQ8EpZ9OXL2JQUyON V6VBLmCMJpMWY6GcG7YItlO jQyIDAg MCAwIDAgMCAwIDAgMAowIDA oUBJ9UZWsMZV8QLJyYmE1FZ ZpNUp8QEXxFUK7CDVjKZP5Z DIyOSAw KJXfNjE2JFz7EUh6HQLoNBT jHCBpQHCeSWC3SpDwGHniIa A0KZZhWOL5EARoJCH6NaGxJ DQ3XT4+ JvYaWD9suidvDBJlPI8ndbx 0MIwhDVkjHDMxIj4ffCFvk1 RqxMM5d8QXG8EyxaZHIC1pG Q3SSPom BgYuUYPivAYTnJWgvWHYR6M eLQqnLLEyCa1Zl146AwBvvK PgODN2IIYoAcJ3OYEiHzWaR HBfRA3R T14nj1SecqxWvII7qHGvIyW RZ1K3QF8MJRc2Gv8ZvWNoNn B8VGhwIELvtCpyIP3iuSYtZ TMpJt4I SCMBJZhckEYzGoL1Dp5RFQT hP1h3OEY7LPjnQTOgRT40CS g5ZminYEHoI2TzcRIqOcE3N g7LKVVp mZ6aKMHtRMpdNTC2R5fxvWl xTEDdYHypVFUrF7cxtRjtVP M3Cj4+ZkPuIP7oxgrkNeLzF N5qcqm6 NSpyRIujSZZfSt6xsDheY0P wcYkwLFXmFPJ8QKF8pEMBK4 Hxr2NJc573XV2AKTvhNaAoZ UJvbGRJ lIFfiECXI9HjrqZ1I0cmyuW zMgovTGFzdENoYXIgMTIxCi 3EmqGbQJrmPwCjD7cdHE7ap MCpV88l tB1bQb8Jr911ZKSpH1LqpEY vjtOoELVxYKXDZ5lfTVLmnm BbIDIyNiAwIDAgMCAwIDAgM CAwIDAg MCAwIDAgMCAwCjAgMCAwIDA gMCAwIDAgMCAwIDAgMCAwID H4OqCiTAEkSFieFRXvWAI9H DYgMCAw NMPuLIZ6XVbgJKJyFSEeKXZ vBVDsUXHrQBd1RMopVAExHL AwIDAgMCAwIDAgMCAwIDAgM CAwIDAg MCAwCjAgMCAwIDUyOCAwIDQ pRwY9UsmzYOxuTQByCCYbRY P5EsLfTOKjRyA0RLAGZDN6P DUyNyAw YYTpFaNsDWE9RYPjHUdvYRD 9UoiuWOMwBMM3TU8+Pgplbm RvYmoKMTMgMCBvYmoKPDwKL 9S6zKGn M5FmalZXTRLkngnayN2xEt7 Gq747YoEmVGFdCZLcJNwUPG itTpbnW7MjYqSGK5UhytWFN z67KJmp ErK1YV1wFdErRzYsRNZbIOC kOLrtKCzud5dhY4zyYBEdCG K1MPyhL5NtwQcuEimXC0E8C L8ADTs0 Qi8KtXXdfUIQnimqDPEhEy0 XIJSNKRcngHUpYkU0Xy6UYX KvF4y0TRZoSTikTNWhKB05H DkwNQov EVAyM3GpsTQoHpEwPn3TMKB ahF9lJDY9YPugDKG1R4rduQ aaOfAcAMxjSXJfZ0lgwTisZ DQxCj4+ RfPgSM9idvnnSVDkQW0cdhs 9JGimMHusFSRcOb8bpScrF5 IidEpjYVLfHJH8LDN6oFLJP 1Yun7BC g466CV7DnafxzA4TEh4MlIT wlOJnOAHaAvZXE7tab9TQzM GxLWEkHleyEB6ly3YmuvymS 1dpbkFu s0jQifRfPWwjAfkzGu8leXB ef6KjyHH3d5IzOLDyTHZADb 8GvNU5hRFgPzLfSzdzCTQuT DAgMCAw KAYhDWAtMEIyAGT5BIBfXBH oSrNTFpl4LVQ3EFO6QPEoJP H7RAW1NpI6RDRbRTP5MHV6J bF9KAXa KDT3WPZyZTPyCvmhQHWxVRZ MLJKdFNGyJvE6CGX2SkU6Xj BjFxSvYNK4WvJ1IJJbXXV8T jIgMjc4 JKXoZDXtAZejGlw9NeAfNSK 4GikwGWC9OaZjJdC1UJAiQI GrFNRrXPHdHBI9EkZxVKSfI CAwCjAg XZBsTLZ7CbS3IWOxDPZgHVD 9PvP4QWPvXos4VCV2UdH0TU IsHoYmZEXlSFXyDTNxMxS9K zMKNTU2 XQX0QzD8ACDiRSG8MUKwUbW 9YRJfOnz8DAZ5CpD0PQYxJn IyIDUw (more content not included)... Normal [facility] Please click on link to see report pdfCD:[id number] DHJhYcm2QOFjGdRT5zfxm4K SbfPCMqQLEaUBNfLUMDHk5B S9acfucdNRUaNbKwPEVs WKCbUUqtqnGrj0ClaWB9TJo pTf9EojEvsX3lCZhFF216bZ EaziKjT87xkU2yHJSqd49dZ r3HzsHl eVynhpYrsEBqGXF5VqVvMjT xMzExNDIxMzktMDUnMDAnKQ o+OniznlNfMfgVMRLyTR3vr jz2PNmq WMnnDAMtPn4vqLJjt0SdbJE 6i6IUI3VbdaQVRS6gRI0Tnb zzgS8Ry9rxWXFwfShyIZUSP 0ZsYWdz RNAgGn7Nv315RqWfbVBfNBT 9DZLtCnh5QTMtNNPpKIMeJT 9WU40yr7SbjgeXyCM1yOOtS qbQG7X8 FH1LZXh4Tp8HpKGcJyK4FIj aLJIznZsrBA1kbEAkWWZoMs 8SCSSXTGuxyWPyRtR6Uf3JL EAhH2e3 FKMdVYrcNAPaOB83JEbzZOt nMFPsT8MavPInXsXbUn7HUM BmhM6tMSF8TYggPJC8J8xxu GggMTMz OjxoAGMdL6lecHinNNx1Hl7 +TlGbZQ5wfvh6WJZck7FgBy q8Ak4XnLMtKE1Js241Sd5Bb DY2wDKe HE3XwlDfFGyhTOcvIdNqVUQ xdhXqG7WmwIFrWDHyzPUBcE SgvDDQZUrzBxsce9RWaULzZ FVuRn6E KTO2U3akrrAlZjDIH2BsA34 olW7tFN0ZdG4FxqOuGK4dj0 KsntmOF8XbyeEBUJLulafek L0mWYPa XCQTPy6QdWL8mUViUiNxXfl gMCAwIDAgMCAwIDAgMCAwID AgMCAwIDAgMzMzCjAgMCAwI DAgMCAw IDAgMCAwIDAgMCAwIDAgMCA wIDAKMCAwIDAgMCAwIDcyMi AwIDAgNjExIDAgNzIyIDAgM CAwIDAg FPCkVjGkQUX7AzveGFT9FkP iHOI3SCFzSNVmAPFaDXQiSG FgLTUeFZCCDNWlUJJfVPY0K DYxMSA1 JWQiRfOqFBZ7PkVuIXWsPNB 8FGWtMga2QJYgXGWnVyesLB w8JwQpEMT2NASvDyDiWPKgT ju0UPF4 NiAzMzMgNjExIDAgMCAwIDU 1Nl0+PgplbmRvYmoKNyAwIG 9rwxk2EWknOWbdJLOtKg8zr JPaa0Gu gBW3y9WAO7GlvoTYOI1xTG6 NmclshY0MQn3GhTEowzOzAl rgDn8vzBRNg1usJz03EmEjE TMyNSAy DJIkHAHxJLRmAh2OyZBblR1 fO4xpmYgaBrd2Pz5HpRAbZU X6YMwgN9PigJZiVhuTJ7g6S AfnK6Ho S7pnKYSKQ2VfaIzlaTluoCJ 9UZVLQ3pUYBxheUPyFDI6Vh 6Tr3SyfiIkSLU9Uz1LNHOjE T64CI9e MIMUF4lrFWHtxnogNPJzOn7 XERcScDB6eOVdZEXsKs3Lmh oMxTZ6eOW8XMTHYa4UGD1wc 2JqCjgg TUYwOfrDVNoTL1J4fRUkS1O gwdZFW0E5BxW2eOKxK2CrbO ZOzSFcCq9OPOXdCs3atGFwC XJpYWxN CVhhGjjgy9KMgFCyXNTjJc2 LSER0G8shdwXdQyRED5HaG0 0quD7tJR2DpJ3AmhCxCJ8zy 2RpbmcK E1FigtGULMPasoutpM5cLOu mMCVPXt4FdLT2mAWvCaNnMs ggMCAwIDAgMCAwIDAgMCAwI DAgMCAw MRO6MTXrFhQGCyk9IKB2QHT 0KPHhONS6HCX4HrW5WHFoZX Y7IJY0OiL0IGLzNJS4RDS4U cJ6FXJw Nrv9FAOhMEPnFzNlYKPcBLH 5QmR8VzrmXjCfQBnbPmN9Sb mcUqHmHOx7MZP4QvQuZcp1Q DAgNjY3 ZPA6QjA8EjBILaWrSYn0MNT 6GjgcJGD5DpWqYfA6XXRaNX D6FxVkCeS7INc2DAMnCZWiM CAwIDAg VDcdQAJvMJY4LAYsWTQ2EWZ uNZP2GVMkEOJ9GJC6FHO8OK LqXLY3RNTyOuFbPWEuEKVsG jIgODMz IjK1RmG4YOWrKPR3HYFvTuR bIUChBXDzVtxcYYJ0TNUtCT J5IkGaMNZ2JRUlFd1LYQ4ow 2JqCjkg MPEsEgsFSAlOO1I2lDRxP6V fuqEHPHDcvocmwQ2kFu5Vu2 41RpHgUIRvFEZwAJqyLw8wF R6GGy7E mTBjtgPxFfyxFq1juMRWk3t zUy29SnusYSC7HiGzEYOoEP FsQBOqQo6PuADvjN3rK9beu GggMjc4 Vb5YgMBcFNN6HWkfM5TdeVG cHseIZ0f8SQheN0VnE0nmGA UTO2LypUvjtOggfWC2MEEAR 1hIZWln wUSrKYP8Bp0Yj4TrhuHwHFK 8Am3QFOVmDT97YL9oPISCD2 umOCViifixQQSoNu8GKJfHe NT0vFQx PUMbFi8VmncNcPQ0rTU8Dob QEg8NIW3jj1IvNxZgTCQql6 OaCnp4Mr4MlLFoFH9Il816F n9LbCV0 eXHcTA2AiyAgSOpbKAnoUhB tEPAiulYsL1IpvYSqPPXsvC BXRSzrZuodw4DNeSCiNXAmS p2KUMI8 K7mcnlDgHfINM5DiV27hjM2 uFV6WvG2IfpNmIJ8ko0Uatx iKI8AtdeOQSQWwffciuU5gL DkgMCBS Ht6BxGY4vCCqZuUbXvlgWEU mEUK2OuVxWMNwWFAxNVXfUl AzMzMgMCAwIDAgMAoyNzggM CAwIDAg MCAwIDAgMCAwIDAgMCAwIDM oJxGxUJGnVEjdJHEvIAZ9Vv MvEvLsFCssHiS1DdAbExX3T DYxMSA3 WigxMfRbVMC1ZHEhHXYnQgX eKMfoFbz0DaQjBkh6MJC7Ly D5DzzpVwZvRSR7KfK6BDFiW CAwIDk0 NCAwIDAgNjExIDAgMCAwCjA jVXCvIOJ9AwQ6UBEyZIW0YT GxFBD0USCbWxVhODBdMDJ0J TEgMjc4 JQKiJTK9FCP7IZF9ICzCDdI uWNFvCLY7EJMcKPSqTTfmSM X8QQKyTkA5IYAoQFW3QWXmS NV7FVR6 Nl0+PgplbmRvYmoKMTEgMCB jGugPXZoAI3thiqq2iEVsDA BiUIjiTTXwF0HaNAR9ZDJPE 0ZpbHRl vyKtG5YvOYFeUIKmc4XlMBy +AbkgvKTeQN2PzSuvPM2yLY UVP/e+i16xSLJXyut83CpDZ CGSgIQP p7RsV2SnK4BP6WMCaipFiaJ gCEJpKFBwE+xSoh0/gKCigE VyXxZHtFqMGN5rEXo0i2TfJ +PoWOKM DaYwW6P+1tqGTvgP3J/9o9O +k9/73XvOeeeec+64y71WXM DoKxXRgQBsEiD9etRoVDRAp ZLv7M6W xbm2fxDXeADBTSj9KAV3+uO tkpoxcghExLS62LEELq7rmC v3q8HINZ4NRQX3O9dZRbgb7 bBizbon QeFkWUrILh8yB5aAJAIlhwo PFN+G/wcWZtimlSlk8uXaDF +fgzRgEfrBT6xqYx5WOtSbm +5cily+ IBLm03/bceFfWiZCaliAb+a C5LzKauA+XryDrzO3kiYvjm /zTEYo2mH09X84fUvF97EKf Ivpr+wg /onFlVWc0VfntPSxWDpViQs d9ehkxK+qgZt2Ej/kZ/gZyz dHrjcZX6z5q3AQqBwzT79Ho 9hp+Gyg 3bDccRguIDxcSl91hH5BiRK PWC+joQwF3jAVmwh6Yn1a4G d7B6cCKrsPgIOZXt0p3DWU4 inqh6SE CzON0aKFpZDbuZ6DnK5h7Ah WiuXe2P0v5CvGgWpblynM2u SlEVEYceyCBFRoRvsuzcPI1 fTIcFRb zzS6q8VaFQX7rlJnu0IqP7I FZ/MAlYDFxxFBHsu8ppOgrp 7BUL0B7binRmhj4zwICT8tt SofxqhE pqM7WL4stTiXTmkho0meoeL +OkRROkm/QGehk4ZQpsK75a FmXVPYVLYQEoSsYpvYVsxHy 9Ipfx7U WyyY1Ryo+3JCIqC7NLC4F0h t/Bl+jL/Lf80/4T38S/61QI WBXSoVX9dJP9Ij9bptVstJ9 9P69hsq xxKTDGumEuVk+ES9LkDgASM wwwNbm1OSGr0lWTPNUxpsFe pInXf9PmgBOvfdyItFzqixp 7VBh3Rp kIHBSkyZyopZCVsACbJFLMR KvIVr7HJKW4RE6WI7IOA7XB mQXWR/VR1kW8pzvpm7sOcT4 1fB5/GF fDl/ij/Nn+CyOHi97yY1B41 JNfbwPtQYIyQKKcJowSeUQO ZZs2V2tbrhEiadPBL0sR5a9 e7fejgJ pKJ7hkK2jF+wklwSpHRpsjQ D6cF0ZL0JQcZ85CO5Th6pb7 3BzeexE5k2v/vkTvkj+ZqSo qQqYyET pBbMYWBCTrcaLuhMk0Hqbln IHA7Nkby1ECaFEdxruw0cd8 /EP6CbmQY9jS7fmFDVE6108 7ug6wwQ msdZ3EP1xTvB3rn9ANFFRmo PX8YH0EtHBdLGTLvPRyui6K iYAI9bG5O53CJWTfmNG6P7M N2eT/6M pYiJc8ZIw5OfCRD73KTGNET lTblGl7PhtGgO7tnre03Fah dq1RXZWakqpL6m5AOcDNB14 87yMaxF pf49WqROUviLxuey7Ym4vW8 1iKCrzacRSCd6zMAG4mSFHZ yDU0jSxkVtQ6/naGkuaItF7 QpUr1q1 xIsOVr4x0qu90gobl33cNgA wKGojUdn2BhSWZWKfeJcLBc h5ZXWc0bwhm7KD7VzEi2E2c LXI02Hd QAdwBDgIvAzsA/SPa2CUMKg ZMga4Gj7ve+7g0wOOU4j4jK GPqxsjN0QUi0s229S6wyOuD Bw4ZzI6 sm5YRyV9eYtPe7RY7U2dWJU WxSk9Ru3Y2aP1ceqLpyWSaJ gXW+st (more content not included)... Normal [facility] Blood Urea Nitrogenon 2022 Urea nitrogen [Mass/Vol] 30 mg/dL High 12-06 [facility] Comment on above: Performed By: #### C REMAY, BUN #### [facility] [address] [place] [address] [place] Creatinineon 04-07-2022 Creatinine [Mass/Vol] 1.21 mg/dL High 0.44-1.03 [facility] Comment on above: Performed By: #### C REAT, BUN #### [facility] [address] [place] [address] [place] Creatinine Clr Calc Pharmacy 46.76 [facility] Comment on above: Result Comment: PERF ORMED BY: [place] [address] PATHOLOGIST [employer] AIRAM ROMEO M.D. Performed By: #### C REAT, BUN #### [facility] [address] [place] [address] [place] Estimated GFR ( Laura 53 [facility] Comment on above: Result Comment: GFR estimated reference range: According to KDOQI guidelines, <60 ml/min/1.73m2 is sufficient to diagnose a patient with chronic kidney disease. Performed By: #### C REAT, BUN #### [facility] [address] [id number] [place] Estimated GFR (Non- Am 44 Normal [facility] Comment on above: Performed By: #### C REAT, BUN #### [facility] [address] [id number] [place] Creatinine and Glomerular fi ltration rate.predicted panel (S/P/Bld)Ordered By: Miguel Membreno on 04-07-2022 Creatinine [Mass/Vol] 1.21 mg/dL 0.44-1.03 [facility] Estimated glomerular filtrat ion rate (GFR) non- AmericanOrdered By: Miguel Membreno on 04-07-2022 GFR/1.73 sq M.predicted among non-blacks MDRD (S/P/Bld) [Vol rate/Area] 44 mL/Min [facility] No Panel InformationOrdered By: Miguel Membreno on 04-07-2022 Estimated GFR () 53 mL/Min [facility] Comment on above: GFR estimated refere nce range: According to KDOQI guidelines, <60 ml/min/1.73m2 is sufficient to diagnose a patient with chronic kidney disease. Pharmacy Creatinine Clearance (Chem 46.76 [facility] Serum or plasma urea nitroge n measurement (mass/volume)Ordered By: Miguel Membreno on 04-07-2022 Urea nitrogen [Mass/Vol] 30 mg/dL 12-06 [facility] CHEMISTRYOrdered By: Genaro Rivera on 03-31-2022 Albumin Elph (U) [Mass fraction] mg/dL Invalid Interpretation Code [facility] Remisol Creatinine (U) [Mass/Vol] 95.7 mg/dL Invalid Interpretation Code [facility] Remisol U Prot/Creat Ratio UT Invalid Interpretation Code 0.00 - 200.00 [facility] Remisol CHEMISTRYOrdered By: SYSTEM SYSTEM on 03-31-2022 Albumin [Mass/Vol] 3.7 g/dL Normal 3.3 - 5.0 gm/dL [facility] Remisol Anion gap [Moles/Vol] 16 mmol/L Normal 6 - 16 mEq/L [facility] Remisol Calcium [Mass/Vol] 8.8 mg/dL Low 8.9 - 11.1 mg/dL [facility] Remisol Chloride [Moles/Vol] 103 mmol/L Normal 101 - 111 mmol/L [facility] Remisol CO2 [Moles/Vol] 25 mmol/L Normal 21 - 31 mmol/L [facility] Remisol Creatinine [Mass/Vol] 1.4 mg/dL High 0.5 - 1.3 mg/dL [facility] Remisol GFR/1.73 sq M.predicted among blacks MDRD (S/P/Bld) [Vol rate/Area] 45 mL/min/1.73 m2 Low >=59mL/min/1.73 m2 [facility] Chem S GFR/1.73 sq M.predicted among non-blacks MDRD (S/P/Bld) [Vol rate/Area] 37 mL/min/1.73 m2 Low >=59mL/min/1.73 m2 [facility] Chem S Glucose [Mass/Vol] 203 mg/dL High 55 - 199 mg/dL [facility] Remisol Magnesium [Mass/Vol] 2.1 mg/dL Normal 1.3 - 2.4 mg/dL [facility] Remisol Phosphate [Mass/Vol] 4.7 mg/dL High 1.9 - 4.6 mg/dL [facility] Remisol Potassium [Moles/Vol] 3.8 mmol/L Normal 3.5 - 5.3 mmol/L [facility] Remisol Sodium [Moles/Vol] 140 mmol/L Normal 135 - 145 mmol/L [facility] Remisol Urea nitrogen [Mass/Vol] 29 mg/dL High 5 - 21 mg/dL [facility] Remisol Urea nitrogen/Creatinine [Mass ratio] 21 mg/mg High 10 - 20 [facility] Remisol HEMATOLOGYOrdered By: Chai Reid on 03-31-2022 Hematocrit (Bld) [Volume fraction] 39.5 % Normal 34.0 - 46.0 % [facility] HemeAutoSS Hemoglobin (Bld) [Mass/Vol] 12.6 g/dL Normal 12.0 - 16.0 gm/dL [facility] HemeAutoSS Reference Laboratory Testing Ordered By: Angelica Casas on 03-31-2022 Test Code 008284 Invalid Interpretation Code [facility] SendOutsSS Test Code 289267 Invalid Interpretation Code [facility] SendOutsSS Test Name MPO AB Invalid Interpretation Code [facility] SendOutsSS Test Name PR3 AB Invalid Interpretation Code [facility] URINALYSISOrdered By: Elizabeth Rosas on 03-31-2022 Bilirubin [...] UA Auto SS Ketones (U) [Mass/Vol] Negative (03/31/22 7:43 AM) Normal Negative [facility] UA Auto SS [place].plasma/Lith ium.RBC (Bld) [Mass ratio] 0-3 /HPF Normal [...] AM) Invalid Interpretation Code 1.005 - 1.030 [facility] UA Auto SS UA Spec Desc Clean Catch (03/31/22 7:43 AM) Normal [facility] UA Auto SS Urobilinogen Qn (U) 0.5931341 {Donell'U}/dL Normal 0.0 - 1.0 EU/dL [facility] UA Auto SS WBC Auto Ql (U) Negative (03/31/22 7:43 AM) Normal Negative [facility] UA Auto SS WBC LM.HPF (Urine sed) [#/Area] 0-5 /HPF Normal 0-5/HPF [facility] UA Auto SS US ankle/arm indiceson 03-31 US ankle/arm indices [facility] Main [address] [address] Ultrasound Report Signed Patient: Evon Corcoran MR#: [id number] 844 : 1950 Acct:[id number] Age/Sex: 71 / F ADM Date: 03/31/22 Loc: [facility] Room: Type: [facility] Attending Dr: Miguel Membreno MD Ordering [...] Miguel Membreno M.D.03/31/2022 3:38 PM Dictation Location: [place] [address] Tech: Christy Florian Transcribed By: PWS 03/31/22 153 Dictated By: Miguel Membreno MD 03/31/22 1537 Signed By: 03/31/22 1538 Normal [facility] CHEMISTRYOrdered By: Jenni Lazaro on 02-12-2022 HbA1c (Bld) [Mass fraction] 9.3 % High <=5.9% [facility] ChemAutoSS Office Visit (Cardiology)on 01-15-2022 Follow-up visit Diagnoses/Problems Assessed Atherosclerosis of [place] coronary artery of [place] heart without angina pectoris (414.01) (I25.10) Status [...] vein thrombosis (453.40) (I82.409) Orders Atherosclerosis of [place] coronary artery of [place] heart without angina pectoris Renew: Aspirin EC [...] complications. 5. Diabetes, managed by endocrinology in [place]. A1c remains above target 6. Hypertension completely under control. 7. High-risk medication with Xarelto, so far well-tolerated. Takes baby aspirin twice weekly 8. Stage III chronic kidney disease to be monitored closely 9. Recent diagnosis of intermittent claudications and PAD followed by vascular surgery Dr. Daniel in [place], she is currently going through walking exercise program Fariha Guidry MD, [facility] Current Meds Medication NameInstruction amLODIPine Besylate [...] and no (more content not included)... Normal [employer] Tobacco Screening.on 022 Fall risk assessment a) No falls within the last year [facility] [email or web address] 600 DO Work Phone: Tobacco use status [facility] b) No [facility] [employer] 600 DO Work Phone: CHEMISTRYOrdered By: Lab ROP User on 01-06-2022 Glucose [Mass/Vol] 166 mg/dL High 55 - 99 mg/dL [facility] C POC Subsection POC Device SN Invalid Interpretation Code [facility] POC Subsection POC User ID [id number] Invalid Interpretation Code [facility] POC Subsection POC Username ROSSY ZEPEDA Invalid Interpretation Code [facility] POC Subsection Glucose [Mass/Vol] 166 mg/dL High 55 - 99 mg/dL [facility] C POC Subsection Comment on above: Result Comment: Rain evert Meter POC Device SN [id number] Invalid Interpretation Code [facility] POC Subsection POC User ID [id number] Invalid Interpretation Code [facility] POC Subsection POC Username ROXANA MILES Invalid Interpretation Code [facility] POC Subsection CHEMISTRYOrdered By: Lab ROP User on 01-01-2022 Glucose [Mass/Vol] 185 mg/dL High 55 - 99 mg/dL [facility] C POC Subsection Comment on above: Result Comment: Rain evert Meter POC Device SN [id number] Invalid Interpretation Code [facility] POC Subsection POC User ID [id number] Invalid Interpretation Code [facility] POC Subsection POC Username ROXANA MILES Invalid Interpretation Code [facility] POC Subsection CHEMISTRYOrdered By: Chiquita Zapata on 09-24-2021 Albumin DL <= 20 mg/L (U) [Mass/Vol] 15.8 microgram/mL Normal 0.0 - 19.0 mcg/mL [facility] Remisol ALT No additional P-5'-P [Catalytic activity/Vol] 39 [iU]/d Normal 6 - 46 Int._Unit/L [facility] Chem S AST [Catalytic activity/Vol] 43 [iU]/d Normal 5 - 43 Int._Unit/L [facility] Chem S Bilirubin [Mass/Vol] 1.3 mg/dL High 0.0 - 1.1 mg/dL [facility] Chem S Bilirubin.direct [Mass/Vol] 0.4 mg/dL Normal 0.1 - 0.4 mg/dL [facility] Chem S Potassium [Moles/Vol] 4.9 mmol/L Normal 3.5 - 5.3 mmol/L [facility] Chem S CHEMISTRYOrdered By: SYSTEM SYSTEM on 09-24-2021 Albumin [Mass/Vol] 3.5 g/dL Normal 3.3 - 5.0 gm/dL [facility] Remisol Albumin/Globulin [Mass ratio] 0.9 {ratio} Low 1.1 - 2.2 [facility] Remisol ALP [Catalytic activity/Vol] 98 [iU]/d Normal 21 - 98 Int._Unit/L [facility] Remisol Anion gap [Moles/Vol] 11 mmol/L Normal 6 - 16 mEq/L [facility] Remisol Bilirubin.indirect [Mass or moles/Vol] 0.9 mg/dL [...] in LDL [Mass/Vol] 58 mg/dL Normal <=129mg/dL [facility] Remisol Cholesterol in VLDL [Mass/Vol] 23 mg/dL Normal 7 - 40 mg/dL [facility] Remisol CO2 [Moles/Vol] 31 mmol/L Normal 21 - 31 mmol/L [facility] Creatinine [Mass/Vol] 1.2 mg/dL Normal 0.5 - 1.3 mg/dL [facility] GFR/1.73 sq M.predicted among blacks MDRD (S/P/Bld) [Vol rate/Area] 54 mL/min/1.73 m2 Low >=59mL/min/1.73 m2 [facility] S GFR/1.73 sq M.predicted among non-blacks MDRD (S/P/Bld) [Vol rate/Area] 44 mL/min/1.73 m2 Low >=59mL/min/1.73 m2 [facility] S Globulin (S) [Mass/Vol] 3.8 g/dL Normal 1.4 - 4.0 gm/dL [facility] Glucose [Mass/Vol] 153 mg/dL Normal 55 - 199 mg/dL [facility] Protein [Mass/Vol] 7.3 g/dL Normal 6.0 - 7.8 gm/dL [facility] [place] [facility] Sodium [Moles/Vol] 138 mmol/L Normal 135 - 145 mmol/L [facility] Triglyceride [Mass/Vol] 116 mg/dL Normal <=149mg/dL [facility] Urea nitrogen [Mass/Vol] 22 mg/dL High 5 - 21 mg/dL [facility] Urea nitrogen/Creatinine [Mass ratio] 18 mg/mg Normal 10 - 20 [facility] CHEMISTRYOrdered By: Kevin rick on 09-24-2021 HbA1c (Bld) [Mass fraction] 13.1 % High <=5.9% [facility] ChemAutoSS HEMATOLOGYOrdered By: SYSTEM SYSTEM on 09-24-2021 Basophils/100 WBC (Bld) 0.8 % Normal 0.0 - 2.0 % [facility] HemeAutoSS Basophils/Leukocyte s Auto (Bld) [Pure # fraction] 0.1 E9/L Normal 0.0 - 0.2 E9/L [facility]SS Eosinophils/100 WBC (Bld) 3.2 % Normal [...] 4.3 E12/L Normal 4.3 - 5.9 E12/L [facility] WBC corrected for nucl RBC Auto (Bld) [#/Vol] 7.5 E9/L Normal 4.0 - 11.0 E9/L [facility] HemeAutoSS Falls Risk Screeningon 05-28 Fall risk assessment a) No falls within the last year -[facility] 600 DO Work Phone: Heart Rate Regular [...] Vital Signs Recorded: 28May2021 12:25PMRecorded: 28May2021 12:21PM [id number], LUE, [id number], RUE, Sitting [id number], LUE, Brmmcgn75, RUE, Sitting Heart Rate68, R Radial Pulse QualityRegular, R Radial Height5 ft 5 in [id number] lb 3.2 oz BMI Sylvlsfkup97.98 kg/m2 BSA Calculated2 Fall Screeninga) No falls within the last year Signatures Electronically signed by : Fariha Guidry MD; May 28 2021 3:34PM EST (Author) Normal [facility] - Chemistry and C hemistry - challengeon 05-11-2021 Cholesterol [Mass/Vol] 96 mg/dL Normal <=129 [facility] DO Work Phone: Cholesterol in LDL [Mass/Vol] 39 mg/dL Normal 7-40 [facility] [employer] [employer] DO Work Phone: CO2 [Moles/Vol] 24 mmol/L Normal 21-31 [facility] DO Work Phone: Glucose [Mass/Vol] 217 mg/dL above high threshold 55-199 [facility] DO Work Phone: Comment on above: If this glucose resu lt represents a fasting glucose, interpretation should refer to the following reference range: 55-99 mg/dL Laboratory - Hematology and Cell countson 05-11-2021 Erythrocyte distribution width (RBC) [Ratio] 13.2 % Normal 10.9-14.2 [facility] [employer] DO Work Phone: Hematocrit (Bld) [Volume fraction] 39.5 % Normal 34.0-46.0 [facility] [employer] DO Work Phone: Platelet mean volume (Bld) [Entitic vol] 11.0 fL above high threshold 6.4-10.8 [facility] [employer] fel[facility] 250 DO Work Phone: No Panel Informationon 05-11 14 {mEq/L} Normal 6-16 [facility] [employer] feliz 250 DO Work Phone: 102 mmol/L Normal 101-111 [facility] feliz 250 DO Work Phone: 4.2 mmol/L Normal 3.5-5.3 [facility] [employer] feliz 250 DO Work Phone: 136 mmol/L Normal 135-145 [facility] elmenus feliz 250 DO Work Phone: 8.9 mg/dL Normal 8.9-11.1 [facility] [employer] feliz 250 DO Work Phone: 25 {No_Units} above high threshold 10-20 [facility] [employer] feliz 250 DO Work Phone: 1.0 mg/dL Normal 0.5-1.3 [facility] 250 DO Work Phone: 25 mg/dL above high threshold 5-21 [facility] el[employer] feliz 250 DO Work Phone: >60 Normal >=59 [facility] el[employer]us feliz 250 DO Work Phone: Comment on above: eGFR is race adjuste d. AA=. 55 {mL/min/1.73_m2} below low threshold >=59 [facility] [employer] feliz 250 DO Work Phone: Comment on above: Chronic kidney disea se could be indicated at eGFR's of less than 60 mL/min/1.73m2. Kidney failure is indicated at less than 15 mL/min/1.73m2. 54 {Int._Unit/L} above high threshold 6-46 [facility] [employer] feliz 250 DO Work Phone: 67 {Int._Unit/L} above high threshold 5-43 [facility] [employer] fel[facility] 250 DO Work Phone: 197 mg/dL above high threshold <=149 [facility] feliz 250 DO Work Phone: 49 mg/dL [facility] Work Phone: Comment on above: HDL > or equal to 60 mg/dL: Low cardiovascular riskHDL < 40 mg/dL : High cardiovascular risk 193 mg/dL Normal 120-200 [facility] [employer] fel[facility] 250 DO Work Phone: 229.0 {E9/L} Normal 150.0-500.0 [facility] [employer] feliz 250 DO Work Phone: Comment on above: Slide reviewed by BR Platelet count verified using smear estimate. 85.4 fL Normal 80.0-100.0 [facility] 250 DO Work Phone: 33.5 {gm/dL} Normal 31.4-36.0 [facility] [employer] feliz 250 DO Work Phone: 28.7 pg Normal 27.0-34.0 [facility] Work Phone: 13.2 {gm/dL} Normal 12.0-16.0 [facility] 250 DO Work Phone: 4.6 {E12/L} Normal 4.3-5.9 [facility] 250 DO Work Phone: 6.7 {E9/L} Normal 4.0-11.0 [facility] 250 DO Work Phone: Office Visit (Cardiology)on 05-08-2021 Follow-up visit Diagnoses/Problems Assessed Atherosclerosis of [place] coronary artery of [place] heart without angina pectoris (414.01) (I25.10) Chronic kidney disease, stage 3 (585.3) (N18.30) Deep vein thrombosis (453.40) (I82.409) Essential hypertension (401.9) (I10) High risk medication use (V58.69) (Z79.899) Hyperlipidemia (272.4) (E78.5) Status post coronary angioplasty (V45.82) (Z98.61) Never a smoker Class 1 obesity with body mass index (BMI) of 34.0 to 34.9 in adult (278.00,V85.34) (E66.9,Z68.34) Orders Atherosclerosis of [place] coronary artery of [place] heart without angina pectoris Renew: Aspirin EC 81 MG Oral Tablet Delayed Release; TAKE ONE TABLET THURSDAY AND THURSDAY Renew: Losartan Potassium 50 MG Oral Tablet; TAKE 1 TABLET TWICE DAILY Atherosclerosis of [place] coronary artery of [place] heart without angina pectoris, Chronic kidney disease, stage 3, High risk medication use Basic Metabolic Panel; Status:Active - Retrospective Authorization; Requested for:[id number]; Complete Blood Count; Status:Active - Retrospective Authorization; Requested for:[id number]; Atherosclerosis of [place] coronary artery of [place] heart without angina pectoris, Essential hypertension Renew: Metoprolol Succinate ER 50 MG Oral Tablet Extended Release 24 Hour; TAKE 1 TABLET Daily Atherosclerosis of [place] coronary artery of [place] heart without angina pectoris, Hyperlipidemia ALT - Alanine Aminotransferase, Serum; Status:Active - Retrospective Authorization; Requested for:[id number]; AST; Status:Active - Retrospective Authorization; Requested for:[id number]; Lipid Panel; Status:Active - Retrospective Authorization; Requested for:[id number]; Class 1 obesity with body mass index (BMI) of 34.0 to 34.9 in adult Healthy Weight Tips; Status:Complete - Retrospective Authorization; Done: [id number] Deep vein thrombosis Start: Xarelto 10 MG Oral Tablet; Take 1 tablet daily Essential hypertension Start: amLODIPine Besylate 5 MG Oral Tablet (Norvasc); TAKE 1 TABLET DAILY SocHx: Never a smoker Tobacco Use Screening; Status:Complete; Done: [id number] Unlinked Stop: Xarelto 20 MG Oral Tablet Patient Instructions By signing my name below, Saloni Styles Lpn, Scribe, attest that this documentation has been prepared [...] to be monitored closely Fariha Guidry MD, [facility] Surgical History Problems History of Angioplasty History of Cholecystectomy History of Colonoscopy History of Hysterectomy Past Medical History Problems History of angina pectoris (V12. (more content not included)... [employer] Tobacco Screening.on 022 Adult depression screening assessment No [facility] [employer] 250 DO Work Phone: Fall risk assessment a) No falls within the last year [facility] elmenus feliz 250 DO Work Phone: Tobacco use status CPHS b) No [facility] elmenus feliz 250 DO Work Phone: Vital Signs Date Time Vital Sign Value Performing Clinician Facility 04-10-2023 09:19-0500 Body temperature 98.42 [degF] [facility] 04-10-2023 09:19-0500 Diastolic blood pressure 68 mm[Hg] [facility] 04-10-2023 09:19-0500 Heart rate 82 /min [facility] 04-10-2023 09:19-0500 Respiratory rate 16 /min [facility] 04-10-2023 09:19-0500 SaO2% (BldA) [Mass fraction] 97 % [facility] 04-10-2023 09:19-0500 Systolic blood pressure 168 mm[Hg] [facility] 03-20-2023 09:00-0500 Blood Pressure Location Christopher GLOLE [facility] 03-20-2023 09:00-0500 Body temperature 98.42 [degF] Christopher KAPLE [facility] 03-20-2023 09:00-0500 Diastolic blood pressure 80 mm[Hg] Christopher KAPLE [facility] 03-20-2023 09:00-0500 Heart rate 70 /min Christopher KAPLE [facility] 03-20-2023 09:00-0500 Respiratory rate 16 /min Christopher KAPLE [facility] 03-20-2023 09:00-0500 SaO2% (BldA) [Mass fraction] 99 % Christopher RUSSELL [facility] 03-20-2023 09:00-0500 Systolic blood pressure 132 mm[Hg] Christopher RUSSELL [facility] 03-04-2023 09:09-0500 Heart rate 80 /min Nicola Tapia [facility] 03-04-2023 09:09-0500 SaO2% (BldA) [Mass fraction] 99 % Nicola Tapia [facility] 03-04-2023 09:09-0500 Diastolic blood pressure 67 mm[Hg] Nicola Tapia [facility] 03-04-2023 09:09-0500 Mean blood pressure 91 mm[Hg] Nicola Tapia [facility] 03-04-2023 09:09-0500 Systolic blood pressure 138 mm[Hg] Nicola Tapia [facility] 03-04-2023 09:09-0500 Respiratory rate 16 /min Nicola Tapia [facility] 03-04-2023 09:04-0500 Diastolic blood pressure 96 mm[Hg] Nicola Tapia [facility] 03-04-2023 09:04-0500 Heart rate 84 /min Nicola Tapia [facility] 03-04-2023 09:04-0500 SaO2% (BldA) [Mass fraction] 98 % Nicola Tapia [facility] 03-04-2023 09:04-0500 Systolic blood pressure 165 mm[Hg] Nicola Tapia [facility] 03-04-2023 08:12-0500 Heart rate 82 /min Nicola Tapia [facility] 03-04-2023 08:12-0500 SaO2% (BldA) [Mass fraction] 97 % Nicola Tapia [facility] 03-04-2023 08:12-0500 Diastolic blood pressure 75 mm[Hg] Nicola Tapia [facility] 03-04-2023 08:12-0500 Mean blood pressure 103 mm[Hg] Nicola Tapia [facility] 03-04-2023 08:12-0500 Systolic blood pressure 159 mm[Hg] Nicola Tapia [facility] 03-04-2023 08:12-0500 Body temperature 98.42 [degF] Nicola Tapia [facility] 03-04-2023 08:11-0500 Respiratory rate 14 /min Nicola Tapia [facility] 03-03-2023 11:45-0500 Body height 165.1 cm Miguel Membreno Other [facility] Other 03-03-2023 11:45-0500 Body mass index (BMI) [Ratio] 33.28 kg/m2 Miguel Membreno Other [facility] Other 03-03-2023 11:45-0500 Body temperature 97.8 [degF] Miguel Membreno Other [facility] Other 03-03-2023 11:45-0500 Body weight 90.72 kg Miguel Membreno Other [facility] Other 03-03-2023 11:45-0500 Diastolic blood pressure 72 mm[Hg] Miguel Membreno Other [facility] Other 03-03-2023 11:45-0500 SaO2% (BldA) [Mass fraction] 96 % Miguel Membreno Other [facility] [employer] Other 03-03-2023 11:45-0500 Systolic blood pressure 124 mm[Hg] Miguel Membreno Other [facility] [employer] Other 02-18-2023 13:40-0500 Diastolic blood pressure 70 mm[Hg] DO Christopher Kaple Work Phone: [facility] 02-18-2023 13:40-0500 Heart rate 64 /min DO Christopher Kaple Work Phone: [facility] 02-18-2023 13:40-0500 Respiratory rate 16 /min DO Christopher Kaple Work Phone: [facility] 02-18-2023 13:40-0500 SaO2% (BldA) [Mass fraction] 98 % DO Christopher Kaple Work Phone: [facility] 02-18-2023 13:40-0500 Systolic blood pressure 169 mm[Hg] DO Christopher Kaple Work Phone: [facility] 02-18-2023 12:40-0500 Inhaled oxygen flow rate 1 L/min DO Christopher Kaple Work Phone: [facility] 02-18-2023 09:15-0500 Body height 165.1 cm DO Christopher Kaple Work Phone: [facility] 02-18-2023 09:15-0500 Body weight 97.52 kg DO Christopher Kaple Work Phone: [facility] 02-16-2023 13:23-0500 Heart rate 76 /min Gary Prashant [facility] 02-16-2023 13:23-0500 SaO2% (BldA) [Mass fraction] 96 % Gary Prashant [facility] 02-16-2023 13:22-0500 Diastolic blood pressure 80 mm[Hg] Gary Cerda [facility] 02-16-2023 13:22-0500 Mean blood pressure 105 mm[Hg] Gary Cerda [facility] 02-16-2023 13:22-0500 Systolic blood pressure 155 mm[Hg] Gary Cerda [facility] 02-16-2023 13:22-0500 Body temperature 97.7 [degF] Gary Cerda [facility] 02-16-2023 13:21-0500 Respiratory rate 16 /min Gary Cerda [facility] 02-12-2023 09:03-0500 Body height 165.1 cm Fariha Guidry MD Work Phone: [facility] 02-12-2023 09:03-0500 Body mass index (BMI) [Ratio] 35.78 kg/m2 Fariha Guidry MD Work Phone: [facility] 02-12-2023 09:03-0500 Body weight 97.52 kg Fariha Guidry MD Work Phone: [facility] 02-12-2023 09:03-0500 Diastolic blood pressure 64 mm[Hg] Fariha Guidry MD Work Phone: [facility] 02-12-2023 09:03-0500 Heart rate 64 /min Fariha Guidry MD Work Phone: [facility] 02-12-2023 09:03-0500 Systolic blood pressure 120 mm[Hg] Fariha Guidry MD Work Phone: [facility] 01-26-2023 08:00-0500 Blood Pressure Location Christopher WELLS [facility] 01-26-2023 08:00-0500 Body temperature 98.6 [degF] Christopher KAPLE [facility] 01-26-2023 08:00-0500 Diastolic blood pressure 72 mm[Hg] Christopher KAPLE [facility] 01-26-2023 08:00-0500 Heart rate 65 /min Christopher KAPLE [facility] 01-26-2023 08:00-0500 SaO2% (BldA) [Mass fraction] 96 % Christopher KAPLE [facility] 01-26-2023 08:00-0500 Systolic blood pressure 124 mm[Hg] Christopher KAPLE [facility] 01-06-2023 08:13-0400 Diastolic blood pressure 78 mm[Hg] Gary Prashant [facility] 01-06-2023 08:13-0400 Heart rate 69 /min Gary Prashant [facility] 01-06-2023 08:13-0400 Mean blood pressure 107 mm[Hg] Gary Prashant [facility] 01-06-2023 08:13-0400 Respiratory rate 14 /min Gary Prashant [facility] 01-06-2023 08:13-0400 Systolic blood pressure 166 mm[Hg] Gary Prashant [facility] 01-05-2023 09:15-0400 Body height 165.1 cm Miguel Membreno Other [facility] Other 01-05-2023 09:15-0400 Body mass index (BMI) [Ratio] 33.28 kg/m2 Miguel Buehrer Other [facility] Other 01-05-2023 09:15-0400 Body temperature 96.3 [degF] Miguel Buehrer Other [facility] Other 01-05-2023 09:15-0400 Body weight 90.72 kg Miguel Maierehrer Other [facility] Other 01-05-2023 09:15-0400 Diastolic blood pressure 62 mm[Hg] Miguel Buehrer Other [facility] Other 01-05-2023 09:15-0400 SaO2% (BldA) [Mass fraction] 97 % Miguel Buehrer Other [facility] Other 01-05-2023 09:15-0400 Systolic blood pressure 120 mm[Hg] Miguel Buehrer Other [facility] Other 11-04-2022 12:00-0400 Body height 165.1 cm Miguel Martinezrer Other [facility] Other 11-04-2022 12:00-0400 Body mass index (BMI) [Ratio] 33.28 kg/m2 Miguel Maierehrer Other [facility] Other 11-04-2022 12:00-0400 Body temperature 97.1 [degF] Miguel Buehrer Other [facility] Other 11-04-2022 12:00-0400 Body weight 90.72 kg Miguel Maierehrer Other [facility] Other 11-04-2022 12:00-0400 Diastolic blood pressure 70 mm[Hg] Miguel Butcherr Other [facility] Other 11-04-2022 12:00-0400 SaO2% (BldA) [Mass fraction] 95 % Miguel Membreno Other [facility] Other 11-04-2022 12:00-0400 Systolic blood pressure 140 mm[Hg] Miguel Membreno Other [facility] Other 11-03-2022 10:30-0400 Body height 165.1 cm Renetta Barahona Other [facility] Other 11-03-2022 10:30-0400 Body mass index (BMI) [Ratio] 33.28 kg/m2 Renetta Barahona Other [facility] Other 11-03-2022 10:30-0400 Body temperature 97.6 [degF] Renetta Barahona Other [facility] Other 11-03-2022 10:30-0400 Body weight 90.72 kg Renetta Barahona Other [facility] Other 11-03-2022 10:30-0400 Diastolic blood pressure 76 mm[Hg] Renetta Barahona Other [facility] Other 11-03-2022 10:30-0400 SaO2% (BldA) [Mass fraction] 98 % Renetta Barahona Other [facility] Other 11-03-2022 10:30-0400 Systolic blood pressure 116 mm[Hg] Renetta Barahona Other [facility] [employer] Other 09-10-2022 08:12-0400 Blood Pressure Location Lindajahaira MeltonOsmin [facility] 09-10-2022 08:12-0400 Body temperature 96.8 [degF] Linda Osmin [facility] 09-10-2022 08:12-0400 Diastolic blood pressure 71 mm[Hg] Linda Osmin [facility] 09-10-2022 08:12-0400 Heart rate 56 /min Linda Osmin [facility] 09-10-2022 08:12-0400 Systolic blood pressure 118 mm[Hg] Linda Osmin [facility] 06-11-2022 09:10-0400 Diastolic blood pressure 70 mm[Hg] Linda Osmin [facility] 06-11-2022 09:10-0400 Mean blood pressure 92 mm[Hg] Linda Osmin [facility] 06-11-2022 09:10-0400 Systolic blood pressure 136 mm[Hg] Linda Osmin [facility] 06-11-2022 09:04-0400 Blood Pressure Location Linda Osmin [facility] 06-11-2022 09:04-0400 Body temperature 97.88 [degF] Linda Osmin [facility] 06-11-2022 09:04-0400 Diastolic blood pressure 75 mm[Hg] Linda Osmin [facility] 06-11-2022 09:04-0400 Heart rate 66 /min Linda Solorio [facility] 06-11-2022 09:04-0400 Systolic blood pressure 155 mm[Hg] Linda Solorio [facility] 05-05-2022 09:45-0500 Body height 165.1 cm Miguel Membreno Other [facility] Other 05-05-2022 09:45-0500 Body mass index (BMI) [Ratio] 33.28 kg/m2 Miguel Membreno Other [facility] Other 05-05-2022 09:45-0500 Body temperature 96.2 [degF] Miguel Membreno Other [facility] Other 05-05-2022 09:45-0500 Body weight 90.72 kg Miguel Membreno Other [facility] Other 05-05-2022 09:45-0500 Diastolic blood pressure 60 mm[Hg] Miguel Membreno Other [facility] Other 05-05-2022 09:45-0500 SaO2% (BldA) [Mass fraction] 97 % Miguel Membreno Other [facility] Other 05-05-2022 09:45-0500 Systolic blood pressure 112 mm[Hg] Miguel Membreno Other [facility] Other 04-07-2022 20:00-0500 Diastolic blood pressure 80 mm[Hg] DO Christopher Wells Work Phone: [facility] 04-07-2022 20:00-0500 Heart rate 70 /min DO Christopher Kaple Work Phone: [facility] 04-07-2022 20:00-0500 Respiratory rate 18 /min DO Christopher Kaple Work Phone: [facility] 04-07-2022 20:00-0500 SaO2% (BldA) [Mass fraction] 98 % DO Christopher Kaple Work Phone: [facility] 04-07-2022 20:00-0500 Systolic blood pressure 159 mm[Hg] DO Christopher Kaple Work Phone: [facility] 04-07-2022 17:05-0500 Body temperature 98.1 [degF] DO Christopher Kaple Work Phone: [facility] 04-07-2022 16:20-0500 Inhaled oxygen flow rate 2 L/min DO Christopher Kaple Work Phone: [facility] 04-07-2022 13:53-0500 Body height 165.1 cm DO Christopher Kaple Work Phone: [facility] 04-07-2022 13:53-0500 Body weight 90.71 kg DO Christopher Kaple Work Phone: [facility] 03-31-2022 10:15-0500 Body height 165.1 cm Renetta Barahona Other [facility] Other 03-31-2022 10:15-0500 Body mass index (BMI) [Ratio] 33.28 kg/m2 Renetta Barahona Other [facility] Other 03-31-2022 10:15-0500 Body temperature 98.7 [degF] Renetta Barahona Other [facility] Other 03-31-2022 10:15-0500 Body weight 90.72 kg Renetta Barahona Other [facility] Other 03-31-2022 10:15-0500 Diastolic blood pressure 82 mm[Hg] Renetta Barahona Other [facility] Other 03-31-2022 10:15-0500 SaO2% (BldA) [Mass fraction] 98 % Renetta Barahona Other [facility] Other 03-31-2022 10:15-0500 Systolic blood pressure 136 mm[Hg] Renetta Barahona Other [facility] Other 01-27-2022 12:00-0500 Body height 165.1 cm Miguel Membreno Other [facility] Other 01-27-2022 12:00-0500 Body mass index (BMI) [Ratio] 33.28 kg/m2 Miguel Martinezremelissa Other [facility] Other 01-27-2022 12:00-0500 Body temperature 97.7 [degF] Miguel Martinezrer Other [facility] Other 01-27-2022 12:00-0500 Body weight 90.72 kg Miguel Buehrer Other [facility] Other 01-27-2022 12:00-0500 Diastolic blood pressure 70 mm[Hg] Miguel Maierehrer Other [facility] Other 01-27-2022 12:00-0500 SaO2% (BldA) [Mass fraction] 98 % Miguel Martinezrer Other [facility] Other 01-27-2022 12:00-0500 Systolic blood pressure 142 mm[Hg] Miguel Membreno Other [facility] Other 01-15-2022 10:29-0400 Body height 165.1 cm Christopher Wells Work Phone: [facility] [employer] 600 DO Work Phone: 01-15-2022 10:29-0400 Body mass index (BMI) [Ratio] 34.95 kg/m2 Christopher Wells Work Phone: [facility] [employer] 600 DO Work Phone: 01-15-2022 10:29-0400 Body surface area Derived from formula 2.02 m2 Christopher Wells Work Phone: [facility] [employer] 600 DO Work Phone: 01-15-2022 10:29-0400 Body weight 95.26 kg Christopher Wells Work Phone: [facility] [employer] 600 DO Work Phone: 01-15-2022 10:29-0400 Diastolic blood pressure 60 mm[Hg] Christopher Wells Work Phone: [facility] [employer] 600 DO Work Phone: 01-15-2022 10:29-0400 Heart rate 68 /min Christopher Wells Work Phone: [facility] [employer] 600 DO Work Phone: 01-15-2022 10:29-0400 Systolic blood pressure 116 mm[Hg] Christopher Wells Work Phone: [facility] [employer] 600 DO Work Phone: 11-28-2021 15:19-0400 Blood Pressure Location Charis Daniel [facility] 11-28-2021 15:19-0400 Diastolic blood pressure 69 mm[Hg] Charis Fredy [facility] 11-28-2021 15:19-0400 Heart rate 61 /min Charis Fredy [facility] 11-28-2021 15:19-0400 Respiratory rate 18 /min Charis Fredy [facility] 11-28-2021 15:19-0400 SaO2% (BldA) [Mass fraction] 98 % Charis Fredy [facility] 11-28-2021 15:19-0400 Systolic blood pressure 132 mm[Hg] Charis Fredy [facility] 10-28-2021 09:56-0400 Blood Pressure Location Mohlucio Fredy [facility] 10-28-2021 09:56-0400 Diastolic blood pressure 72 mm[Hg] Charis Fredy [facility] 10-28-2021 09:56-0400 Heart rate 76 /min Charis Fredy [facility] 10-28-2021 09:56-0400 SaO2% (BldA) [Mass fraction] 96 % Charis Fredy [facility] 10-28-2021 09:56-0400 Systolic blood pressure 120 mm[Hg] Charis Fredy [facility] 05-28-2021 12:25-0400 Diastolic blood pressure 64 mm[Hg] Christopher Wells Work Phone: [facility] 600 DO Work Phone: 05-28-2021 12:25-0400 Systolic blood pressure 130 mm[Hg] Christopher Wells Work Phone: [facility] 600 DO Work Phone: 05-28-2021 12:21-0400 Body height 165.1 cm Christopher Wells Work Phone: [facility] 600 DO Work Phone: 05-28-2021 12:21-0400 Body mass index (BMI) [Ratio] 33.98 kg/m2 Christopher Bale Work Phone: [facility] 600 DO Work Phone: 05-28-2021 12:21-0400 Body surface area Derived from formula 2 m2 Christopher Wells Work Phone: [facility] 600 DO Work Phone: 05-28-2021 12:21-0400 Body weight 92.63 kg Christopher [facility] Work Phone: 05-28-2021 12:21-0400 Diastolic blood pressure 76 mm[Hg] Christopher Wells Work Phone: [facility] 600 DO Work Phone: 05-28-2021 12:21-0400 Heart rate 68 /min Christopher Wells Work Phone: [facility] 600 DO Work Phone: 05-28-2021 12:21-0400 Systolic blood pressure 140 mm[Hg] Christopher Wells Work Phone: [facility] 600 DO Work Phone: 05-08-2021 11:36-0500 Diastolic blood pressure 90 mm[Hg] Christopher Wells Work Phone: [facility] 250 DO Work Phone: 05-08-2021 11:36-0500 Systolic blood pressure 180 mm[Hg] Christopher Wells Work Phone: [facility] 250 DO Work Phone: 05-08-2021 11:20-0500 Body height 165.1 cm Christopher Wells Work Phone: [facility] 250 DO Work Phone: 05-08-2021 11:20-0500 Body mass index (BMI) [Ratio] 34.11 kg/m2 Christopher Bale Work Phone: [facility] 250 DO Work Phone: 05-08-2021 11:20-0500 Body surface area Derived from formula 2 m2 Christopher Wells Work Phone: [facility] 250 DO Work Phone: 05-08-2021 11:20-0500 Body weight 92.99 kg Christopher Wells Work Phone: [facility] 250 DO Work Phone: 05-08-2021 11:20-0500 Diastolic blood pressure 90 mm[Hg] Christopher Wells Work Phone: [facility] 250 DO Work Phone: 05-08-2021 11:20-0500 Heart rate 68 /min Christopher Wells Work Phone: [facility] 250 DO Work Phone: 05-08-2021 11:20-0500 Systolic blood pressure 142 mm[Hg] Christopher Wells Work Phone: [facility] 250 DO Work Phone: Encounters Encounter Date Encounter Type Care Provider Facility Start: 04-10-2023 End: 04-10-2023 Emergency department patient visit Malvin Gupta Facility:[facility] Start: 04-10-2023 End: 04-10-2023 Emergency department patient visit Malvin Gupta [facility] Start: 03-23-2023 End: 03-24-2023 ambulatory Mara Dawit Facility:[facility] Start: 03-20-2023 End: 03-21-2023 ambulatory Christopher WELLS Facility:[facility] Start: 03-20-2023 End: 03-20-2023 Patient encounter procedure Christopher WELLS [facility] Start: 03-18-2023 End: 03-18-2023 ambulatory DENTON D DOLCE Not Available Start: 03-04-2023 End: 03-05-2023 ambulatory DO Nicola Tapia Facility:[facility] Start: 03-04-2023 End: 03-04-2023 Pain Management Nicola Tapia [facility] Start: 03-03-2023 End: 03-03-2023 Patient encounter procedure Denton D Angelyce [facility] Start: 03-03-2023 End: 03-04-2023 ambulatory Denton D Dolce [facility] [employer] Other Start: 03-03-2023 Office outpatient vi sit 25 minutes Miguel CHOI [facility] Start: 03-02-2023 End: 03-03-2023 ambulatory Linda Solorio Facility:[facility] Start: 03-02-2023 End: 03-02-2023 Patient encounter procedure Linda Solorio [facility] Start: 02-24-2023 End: 02-25-2023 ambulatory Denton D Dolce Facility:[facility] Start: 02-20-2023 End: 02-20-2023 ambulatory DENTON D DOLCE Not Available Start: 02-19-2023 End: 04-10-2023 ambulatory Christopher WELLS Facility:CD:[id number] Start: 02-18-2023 End: 02-18-2023 ambulatory Miguel Membreno Facility:[facility] Start: 02-18-2023 End: 02-18-2023 Admission to same day surgery center DO Christopher Wells Work Phone: [facility] Work Phone: Start: 02-18-2023 End: 02-18-2023 ambulatory DO Christopher Wells Work Phone: [facility] Work Phone: Start: 02-16-2023 End: 02-17-2023 ambulatory MD Gary Cerda Facility:[facility] Start: 02-16-2023 End: 02-16-2023 Pain Management Gary Cerda [facility] Start: 02-16-2023 End: 02-17-2023 ambulatory Denton Mares Facility:[facility] Start: 02-16-2023 End: 02-16-2023 Patient encounter procedure Denton Mares [facility] Start: 02-12-2023 End: 02-12-2023 ambulatory [facility] Start: 02-12-2023 End: 02-12-2023 Office outpatient visit 25 minutes Fariha Guidry MD Work Phone: [facility] Comment on above: Atherosclerosis of n ative coronary artery of [place] heart without angina pectoris; Status post coronary angioplasty; Essential hypertension; Hyperlipidemia, unspecified hyperlipidemia type; PVD (peripheral vascular disease) ([facility]/HCC); Stage 3 chronic kidney disease, unspecified whether stage 3a or 3b CKD (CMS/HCC); Sleep apnea, unspecified type Start: 02-10-2023 End: 02-11-2023 ambulatory Denton Mares Facility:[facility] Start: 02-10-2023 End: 02-10-2023 Patient encounter procedure Denton Mares [facility] Start: 01-27-2023 End: 01-28-2023 ambulatory Denton Mares [facility] Other Start: 01-27-2023 Telephone encounter Miguel Membreno [facility] Vascular Surgery Start: 01-27-2023 End: 01-27-2023 Patient encounter procedure Denton Marse [facility] Start: 01-26-2023 End: 01-27-2023 ambulatory Christopher WELLS Facility:[facility] Start: 01-26-2023 End: 01-26-2023 Patient encounter procedure Christopher WELLS [facility] Start: 01-26-2023 End: 01-26-2023 Well adult monitoring check done Christopher WELLS [facility] Start: 01-19-2023 End: 01-20-2023 ambulatory Denton Mares Facility:[facility] Start: 01-19-2023 End: 01-19-2023 Patient encounter procedure Denton Mares [facility] Start: 01-13-2023 End: 01-14-2023 ambulatory Denton Gomez Angelygreg Facility:[facility] Start: 01-13-2023 End: 01-13-2023 Patient encounter procedure Denton Mares [facility] Start: 01-06-2023 End: 01-07-2023 ambulatory MD Gary Cerda Facility:[facility] Start: 01-06-2023 End: 01-06-2023 Pain Management Gary Cerda [facility] Start: 01-05-2023 End: 01-05-2023 ambulatory Miguel Membreno Other [facility] Other Start: 01-05-2023 Office outpatient vi sit 25 minutes Miguel Membreno [facility] Vascular Surgery Start: 12-31-2022 End: 01-01-2023 ambulatory Catrachito Wolf Facility:[facility] Start: 12-31-2022 End: 12-31-2022 Patient encounter procedure Catrachito Wolf [facility] Start: 12-22-2022 End: 12-23-2022 ambulatory [place] Jason Mares Facility:[facility] Start: 12-18-2022 End: 12-19-2022 ambulatory Christopher A RUSSELL Facility:[facility] Start: 12-08-2022 End: 12-09-2022 ambulatory Catrachito Wolf Facility:[facility] Start: 12-08-2022 End: 12-08-2022 Patient encounter procedure Catrachito Wolf [facility] Start: 11-24-2022 End: 11-25-2022 ambulatory Christopher WELLS Facility:[facility] Start: 11-24-2022 End: 11-24-2022 Patient encounter procedure Christopher A RUSSELL [facility] Start: 11-06-2022 End: 11-07-2022 ambulatory Christopher WELLS Facility:[facility] Start: 11-04-2022 Office outpatient vi sit 25 minutes Miguel Membreno [facility] Vascular Surgery Start: 11-04-2022 End: 11-04-2022 ambulatory DO Christopher Wells Work Phone: [facility] Other Start: 11-04-2022 End: 11-04-2022 Patient encounter procedure DO Christopher Wells Work Phone: [facility]-Ultrasound [facility] Start: 11-03-2022 Follow-up encounter Renetta Musa [facility] Start: 11-03-2022 End: 11-03-2022 ambulatory Christopher Wells [facility] Other Start: 11-03-2022 End: 11-03-2022 Patient encounter procedure DO Christopher Wells Work Phone: [facility]-Ultrasound [facility] Start: 10-31-2022 End: 11-01-2022 ambulatory Klaus Akkina Facility:[facility] Start: 10-31-2022 End: 10-31-2022 Patient encounter procedure Klaus Akkina [facility] Start: 09-18-2022 Chart Update Christopher Wells Work Phone: [facility] 250 DO Work Phone: Start: 09-17-[address] Christopher Wells [facility] ity:[id number] Start: 09-10-2022 End: 09-11-2022 ambulatory Linda Solorio Facility:[facility] Start: 09-10-2022 End: 09-10-2022 Patient encounter procedure Linda Solorio [facility] Start: 08-01-2022 End: 08-02-2022 ambulatory Fariha Delucaim Facility:[facility] Start: 07-23-2022 Rx Renewal Christopher Wells Work Phone: [facility] 250 DO Work Phone: Start: 06-13-2022 Rx Renewal [facility] Start: 06-11-2022 End: 06-12-2022 ambulatory Linda Solorio [facility] Start: 06-11-2022 End: 06-11-2022 Patient encounter procedure Linda Solorio [facility] Start: 05-21-2022 End: 05-22-2022 ambulatory Luis BENSON Facility:[facility] Start: 05-08-2022 End: 05-09-2022 ambulatory Linda Solorio Facility:[facility] Start: 05-08-2022 End: 05-08-2022 Lab Drop off Linda Solorio [facility] Start: 05-05-2022 End: 05-06-2022 ambulatory Linda Solorio [facility] Other Start: 05-05-2022 Office outpatient vi sit 25 minutes Miguel Membreno [facility] Vascular Surgery Start: 04-08-2022 End: 04-08-2022 ambulatory Renetta Barahona Other [facility] Other Start: 04-08-2022 Telephone encounter Renetta Musa [facility] Start: 04-07-2022 End: 04-07-2022 ambulatory Miguel Membreno Facility:[facility] Start: 04-07-2022 End: 04-07-2022 Admission to same day surgery center DO Christopher Wells Work Phone: [facility]-Interventional Radiology Work Phone: Start: 04-07-2022 End: 04-07-2022 ambulatory DO Christopher Montenegro Kapjanna Work Phone: [facility] Work Phone: Start: 03-31-2022 Follow-up encounter Renetta Musa [facility] Surgery Start: 03-31-2022 End: 03-31-2022 ambulatory Miguel Membreno Facility:[facility] Start: 03-31-2022 End: 03-31-2022 ambulatory DO Christopher A Kapjanna Work Phone: [facility] Work Phone: Start: 03-31-2022 End: 03-31-2022 Patient encounter procedure DO Christopher Kaple Work Phone: [facility]-Ultrasound [facility] Start: 03-31-2022 End: 03-31-2022 Patient encounter procedure Klaus Núñez [facility] Start: 02-12-2022 End: 02-12-2022 Patient encounter procedure Christopher WELLS [facility] Start: 01-27-2022 End: 01-27-2022 ambulatory Miguel Membreno Other [facility] Other Start: 01-27-2022 Office outpatient ne w 45 minutes Miguel Membreno [facility] Vascular Surgery Start: 01-15-[address] Fariha cesar [facility] Facility: Start: 01-15-2022 Office outpatient vi sit 25 minutes Christopher Wells Work Phone: [facility] 600 DO Work Phone: Start: 12-31-2021 End: 06-01-2022 Recurring Charis Daniel [facility] Start: 11-28-2021 End: 11-28-2021 Patient encounter procedure Charis Daniel [facility] Start: 11-12-2021 Rx Renewal Christopher Wells Work Phone: [facility] 250 DO Work Phone: Start: 10-28-2021 Rx Renewal [facility] Work [facility]: Start: 10-28-2021 End: 10-28-2021 Patient encounter procedure Charis Daniel [facility] Start: 10-01-2021 End: 10-01-2021 Patient encounter procedure Christopher WELLS [facility] Start: 09-24-2021 End: 09-24-2021 Patient encounter procedure Christopher WELLS [facility] Start: 08-08-2021 End: 08-08-2021 Patient encounter procedure Christopher WELLS [facility] Start: 07-30-2021 Rx Renewal Christopher Wells Work Phone: [facility] 250 DO Work Phone: Start: 06-12-2021 End: 01-13-2022 Recurring Christopher WELLS [facility] Start: 05-28-2021 Office outpatient vi sit 10 minutes Christopher Wells Work Phone: [facility] 600 DO Work Phone: Start: 05-28-2021 ambulatory Christopher Wells Facility: Start: 05-12-2021 Chart Update [facility] Start: 05-08-2021 ambulatory Christopher Wells Facility: Procedures Date Procedure Procedure Detail Performing Clinician Start: 03-04-2023 Fluoroscopy guided i njection of hip joint Malvin Gupta Comment on above: 99% relief Start: 02-18-2023 Lower limb angiography DO Christopher Wells Work Phone: Start: 11-04-2022 Duplex scan of lower limb arteries DO Christopher Wells Work Phone: Start: 11-03-2022 Ankle brachial press ure index DO Christopher Wells Work Phone: Start: 05-21-2022 Colonoscopy Fariha zavala MD Work Phone: Start: 05-21-2022 Colonoscopy Mohamed Os man Comment on above: biopsies of ascendin g colon, one polyp Start: 04-07-2022 IR Angiogram w/TLA/S tent Left Leg (Left) DO Christopher Russell Work Phone: Start: 03-31-2022 Ankle brachial press ure index DO Christopher Wells Work Phone: Start: 04-15-2017 Colonoscopy Christopher KAPL E Angioplasty of blood vessel Christopher Moni Kaple Work Phone: Cardiac Stents x 3 Christopher GLO LE Cholecystectomy Christopher A Kapl e Work Phone: Cholecystectomy Christopher KAPLE Colonoscopy Christopher A Kaple Work Phone: Hysterectomy Christopher Moni Kaple Work Phone: Hysterectomy Christopher KAPLE Insertion of stent i n femoral vein Christopher Montenegro Kaple Work Phone: Plan of Treatment Date Care Activity Detail Author Start: 05-21-2032 Screening for malignant neoplasm of colon [facility] Start: 05-09-2025 DTaP/Tdap/Td Vaccines (2 - Td or Tdap) DTaP/Tdap/Td Vaccines (2 - Td or Tdap) [facility] Start: 02-01-2024 ambulatory Ambulatory Facility:[facility] Start: 07-28-2023 ambulatory Ambulatory Facility:[facility] Start: 02-18-2023 US Lower extremity veins - bilateral [facility] Start: 02-18-2023 US scan venography of lower limbs US venous mapping BI [facility] Start: 02-18-2023 [facility] Start: 02-12-2023 End: 02-13-2024 Alanine aminotransferase [Enzymatic activity/volume] in Serum or Plasma by With P-5'-P Alanine Aminotransferase Lab Routine Atherosclerosis of shosh[place]ann[place] coronary artery of shoshone[place]bannock heart without angina pectoris Hyperlipidemia, unspecified hyperlipidemia type Expected: 02/12/2023 (Approximate), Expires: 02/13/2024 [facility] Service Area Work Phone: Comment on above: Expected: 02/12/2023 (Approximate), Expi res: 02/13/2024 Start: 02-12-2023 End: 02-13-2024 Aspartate aminotransferase [Enzymatic activity/volume] in Serum or Plasma by With P-5'-P Aspartate Aminotransferase Lab Routine Atherosclerosis of shosh[place]ann[place] coronary artery of shoshone[place]bannock heart without angina pectoris Hyperlipidemia, unspecified hyperlipidemia type Expected: 02/12/2023 (Approximate), Expires: 02/13/2024 [facility] Work Phone: Comment on above: Expected: 02/12/2023 (Approximate), Expi res: 02/13/2024 Start: 02-12-2023 End: 02-13-2024 Lipid 1996 panel - Serum or Plasma Lipid Panel Lab Routine Atherosclerosis of sh[place] coronary artery of shoshone[place]bannock heart without angina pectoris Hyperlipidemia, unspecified hyperlipidemia type Expected: 02/12/2023 (Approximate), Expires: 02/13/2024 [facility] Work Phone: Comment on above: Expected: 02/12/2023 (Approximate), Expi res: 02/13/2024 Start: 02-12-2023 FUV, Provider: Fariha Guidry, Status: Pen, Time: 9:00 AM FUV, Provider: Fariha Guidry, Status: Pen, Time: 9:00 AM [facility] Start: 11-14-2022 Influenza vaccination Influenza Vaccine (#1) [facility] Start: 07-30-2022 FUV, Provider: Fariha Guidry, Status: Pen, Time: 8:40 AM FUV, Provider: Fariha Guidry, Status: Pen, Time: 8:40 AM [facility] Work Phone: Start: 04-07-2022 [facility] Start: 02-12-2022 COVID-19 Vaccine (4 - Booster for Luca series) COVID-19 Vaccine (4 - Booster for Luca series) [facility] Start: 01-15-2022 FUV, Provider: Fariha Guidry, Status: Pen, Time: 10:10 AM FUV, Provider: Fariha Guidry, Status: Pen, [facility]: 10:10 [facility] Phone: Start: 05-28-2021 NURSEVST, Provider: CITLALLI RASHID QUAL FIELD MANAGER 1,[id number], Status: Pen, Time: 11:45 AM NURSEVST, Provider: CITLALLI RASHID QUAL FIELD MANAGER 1,[id number], Status: Pen, Time: 11:45 AM [facility] 250 DO Work Phone: Start: 1989 Screening for malignant neoplasm of breast Mammogram [facility] Start: 06-25-1967 Diabetes mellitus screening Diabetes Screening [facility] Start: 06-25-1967 Hepatitis C screening Hepatitis C Screening [facility] Start: 1949 Lipid panel Lipid Panel [facility] Start: 1949 Medicare Annual Wellness Visit Medicare Annual Wellness Visit (AWV) [facility] Start: 1949 Screening for malignant neoplasm of colon [facility] Start: 1949 Screening for osteoporosis Bone Density Scan [facility] Patient Education [facility] Work Phone: Patient referral [facility] Work Phone: Immunizations Immunization Date Immunization Notes Care Provider Fa cility 12-18-2021 Fluad Quadrivalent 0 .5 ML Intramuscular Prefilled Syringe Christopher Wells Work Phone: [facility] 600 DO Work Phone: 12-18-2021 influenza virus vaccine, unspecified formulation Christopher WELLS [facility] 12-18-2021 Pfizer COVID-19 Vac Bivalent 30 MCG/0.3ML Intramuscular Suspension Christopher Wells Work Phone: [facility] 600 DO Work Phone: 12-18-2021 SARS-CoV-2 (COVID-19 ) mRNA BNT-162b2 vax Christopher WELLS [facility] 03-26-2021 Fluzone High-Dose Quadrivalent 0.7 ML Intramuscular Suspension Prefilled Syringe Christopher Wells Work Phone: [facility] 250 DO Work Phone: 03-26-2021 influenza virus vaccine, unspecified formulation Christopher WELLS [facility] 03-26-2021 Pfizer-BioNTech COVID-19 Vacc 30 MCG/0.3ML Intramuscular Suspension Christopher Wells Work Phone: [facility] 250 DO Work Phone: 05-19-2020 Luca COVID-19 Vaccine 0.5 ML Intramuscular Suspension Christopher Wells Work Phone: [facility] 250 DO Work Phone: 05-18-2020 COVID-19 vaccine, vector-nr, [id number], PF, 0.5 mL; Translations: [Luca COVID-19 Vaccine] Christopher WELLS [facility] Comment on above: Reason for Medicatio n: Prophylaxis Reason for Medicatio n: Prophylaxis 02-23-2020 zoster vaccine recombinant Christopher Wells Work Phone: [facility] 250 DO Work Phone: 01-05-2020 Fluad Quadrivalent 0 .5 ML Intramuscular Prefilled Syringe Christopher Wells Work Phone: [facility] 250 DO Work Phone: 01-05-2020 influenza virus vaccine, unspecified formulation Christopher WELLS [facility] 12-28-2019 influenza, high dose seasonal, preservative-free Christopher Wells Work Phone: [place] [address] DO Work Phone: 12-15-2019 influenza virus vaccine, unspecified formulation Christopher WELLS [facility] 11-15-2019 zoster vaccine recombinant Christopher Wells Work Phone: [place] [address] DO Work Phone: 11-15-2019 zoster vaccine, live Christopher MARTI [facility] 12-20-2018 influenza, high dose seasonal, preservative-free Christopher WELLS [facility] 12-14-2018 influenza virus vaccine, unspecified formulation Christopher WELLS [facility] 12-14-2018 influenza, high dose seasonal, preservative-free Christopher Wells Work Phone: [place] [address] DO Work Phone: 12-14-2018 pneumococcal polysaccharide vaccine, 23 valent Christopher Wells Work Phone: [place] [address] DO Work Phone: 02-16-2018 influenza virus vaccine, unspecified formulation Christopher WELLS [facility] 02-16-2018 Influenza, injectabl e, Madin Milly Canine Kidney, preservative free, quadrivalent Christopher Wells Work Phone: [place] [address] DO Work Phone: 02-16-2018 pneumococcal conjuga te vaccine, 13 valent Christopher Moni Russell Work Phone: [place] [address] DO Work Phone: 11-14-2017 influenza virus vaccine, unspecified formulation Christopher Montenegro Russell Work Phone: [place] [address] DO Work Phone: 11-27-2016 influenza virus vaccine, unspecified formulation Christopher RUSSELL [facility] 11-27-2016 influenza, high dose seasonal, preservative-free Christopher Bajanna Work Phone: [place] [address] DO Work Phone: 01-21-2016 influenza virus vaccine, unspecified formulation Christopher BAJANNA [facility] 01-21-2016 influenza, high dose seasonal, preservative-free Christopher Bajanna Work Phone: [place] [address] DO Work Phone: 05-09-2015 tetanus toxoid, redu louise diphtheria toxoid, and acellular pertussis vaccine, adsorbed Christopher Bajanna Work Phone: [place] [address] DO Work Phone: 02-26-2009 novel [id number], preservative-free, injectable Christopher Bajanna Work Phone: [place] [address] DO Work Phone: NEGATED: Highlighted row has not occurred!02-27-2023 influenza virus vaccine, unspecified formulation Lindajahaira MeltonOsmin [facility] NEGATED: Highlighted row has not occurred!12-18-2022 influenza virus vaccine, unspecified formulation Catrachito Tampico [facility] Payers Date Payer Category Payer Self-pay [id number] 2022 Unknown [id number] 2018 Unknown 2018 Unknown [id number] 2014 Medicare [id number] 2014 Medicare MEDICARE MEDICAR E PART A AND B [id number] 2014-Present [address] [place] [address] [id number]. [id number] 1949 Unknown [id number] 2.16.840.1.721067.3.579.2.356 1949 Unknown [id number] 2.16.840.1.423828.3.579.2.356 1949 Unknown [id number] 2.16.840.1.600453.3.579.2.356 1949 Unknown [id number] 2.16.840.1.010422.3.579.2.1068 1949 Unknown [id number] 2.16.840.1.282316.3.579.2.1244 1949 Unknown [id number] 2.16.840.1.565207.3.579.2.1259 1949 Unknown [id number] 2.16.840.1.366436.3.579.2.1259 1949 Unknown [id number] 2.16.840.1.261849.3.579.2.727 1949 Unknown [id number] 2.16.840.1.578965.3.579.2.727 1949 Unknown [id number] 2.16.840.1.555072.3.579.2.727 1949 Unknown [id number] 2.16.840.1.814924.3.579.2 1949 Unknown [id number] 2.16.840.1.512686.3.579.2 1949 Unknown [id number] 2.16.840.1.350962.3.579.2 1949 Unknown [id number] 2.16.840.1.354206.3.579.2 1949 Unknown [id number] 2.16.840.1.817268.3.579. 1949 Unknown [id number] 2.16.840.1.220065.3.579. 1949 Unknown [id number] 2.16.840.1.587251.3.579. 1949 Unknown [id number] 2.16.840.1.266181.3.579. 1949 Unknown [id number] 2.16.840.1.328637.3.579. 1949 Unknown [id number] 2.16.840.1.361393.3.579.2 1949 Unknown [id number] 2.16.840.1.180653.3.579.2 1949 Unknown [id number] 2.16.840.1.357695.3.579.2 1949 Unknown [id number] 2.16.840.1.822581.3.579.2 1949 Unknown [id number] 2.16.840.1.389802.3.579.2 1949 Unknown [id number] 2.16.840.1.363546.3.579.2 1949 Unknown [id number] 2.16.840.1.112583.3.579.2 1949 Unknown [id number] 2.16.840.1.779430.3.579.2 1949 Unknown [id number] 2.16.840.1.099394.3.579.2 1949 Unknown [id number] 2.16.840.1.482090.3.579.2 1949 Unknown [id number] 2.16.840.1.167021.3.579.2 1949 Unknown [id number] 2.16.840.1.126429.3.579.2 1949 Unknown [id number] 2.16.840.1.460589.3.579.2 1949 Unknown [id number] 2.16.840.1.997021.3.579.2 1949 Unknown [id number] 2.16.840.1.037781.3.579.2 1949 Unknown [id number] 2.16.840.1.057539.3.579.2 1949 Unknown [id number] 2.16.840.1.712984.3.579.2 1949 Unknown [id number] 2.16.840.1.455879.3.579.2 1949 Unknown [id number] 2.16.840.1.778496.3.579.2.72 Unknown [id number] 2.16.840.1.947355.3.579.2.531 Unknown [id number] 2.16.840.1.083354.3.579.2.531 Unknown [id number] 2.16.840.1.156261.3.579.2.531 Unknown [id number] 2.16.840.1.300700.3.579.2.531 Unknown [id number] 2.16.840.1.987149.3.579.2.531 Social History Date Type Detail Facility Start: 02-12-2023 Never a smoker Never a smoker -[facility] DO Work Phone: Start: 12-10-2020 End: 03-20-2023 Tobacco smoking status Never smoked tobacco (finding) [facility] Comment on above: denies use Tobacco smoking status Never [facility] Comment on above: denies use Start: 02-12-2023 Sex Assigned At Female F [facility] Start: 1950 Sex Assigned At Female F [facility] Start: 02-12-2023 Tobacco use and exposure Smokeless tobacco non-user [facility] Work Phone: Start: 02-12-2023 Alcohol intake Current drinke r of alcohol (finding) [facility] Work Phone: Start: 02-12-2023 Alcohol Comment social [facility] Work Phone: Start: 1950 Sex Assigned At Not on file [facility] Work Phone: Start: 02-02-2023 End: 02-12-2023 Exposure to SARS-CoV-2 (event) Not sure [facility] Medical Equipment Procedure Code Equipment Code [...] 11, Dx: E11.9 Directions: BID, [id number], Supply, 165, cm, 06/11/22 9:10:00 EDT, Height/Length Dosing, 97.6, kg, 06/11/22 9:10:00 EDT, Weight Dosing Start: 06-13-2022 Lancets, See Instructions, 100 EA, 11, Dx: E11.9 Directions: BID, [facility], Supply, 166, cm, 05/10/21 8:27:00 EST, Height/Length Dosing, 92.8, kg, 05/10/21 8:27:00 EST, Weight Dosing Start: 05-10-2021 Test strips, See Instructions, 100 EA, 11, Dx: E11.9 Directions: BID, [facility] #[id number], Supply, 165, cm, 06/11/22 9:10:00 EDT, Height/Length Dosing, 97.6, kg, 06/11/22 9:10:00 EDT, Weight Dosing Start: 06-13-2022 CL CLOSURE DEVIC E EXOSEAL 6F FDA Start: 08-11-2018 CL STENT JIE 2.5 X 08 FDA Start: 08-11-2018 Multiple periphe ral artery stent, bare-metal [id number] FDA Start: 04-07-2022 Lancets, See Instructions, 100 EA, 11, Dx: E11.9 Directions: BID, [facility], Supply, 166, cm, 05/10/21 8:27:00 EST, Height/Length Dosing, 92.8, kg, 05/10/21 8:27:00 EST, Weight Dosing Start: 05-10-2021 Test strips, See Instructions, 100 EA, 11, Dx: E11.9 Directions: BID, [id number], Supply, 165, cm, 06/11/22 9:10:00 EDT, Height/Length Dosing, 97.6, kg, 06/11/22 9:10:00 EDT, Weight Dosing Start: 06-13-2022 Lancets, See Instructions, 100 EA, 11, Dx: E11.9 Directions: BID, [facility], Supply, 166, cm, 05/10/21 8:27:00 EST, Height/Length Dosing, 92.8, kg, 05/10/21 8:27:00 EST, Weight Dosing Start: 05-10-2021 Test strips, See Instructions, 100 EA, 11, Dx: E11.9 Directions: BID, [facility] #[id number], Supply, 165, cm, 06/11/22 9:10:00 EDT, Height/Length Dosing, 97.6, kg, 06/11/22 9:10:00 EDT, Weight Dosing Start: 06-13-2022 Lancets, See Instructions, 100 EA, 11, Dx: E11.9 Directions: BID, [facility], Supply, 166, cm, 05/10/21 8:27:00 EST, Height/Length Dosing, 92.8, kg, 05/10/21 8:27:00 EST, Weight Dosing Start: 05-10-2021 Test strips, See Instructions, 100 EA, 11, Dx: E11.9 Directions: BID, [facility] #[id number], Supply, 165, cm, 06/11/22 9:10:00 EDT, Height/Length Dosing, 97.6, kg, 06/11/22 9:10:00 EDT, Weight Dosing Start: 06-13-2022 Lancets, See Instructions, 100 EA, 11, Dx: E11.9 Directions: BID, [facility], Supply, 166, cm, 05/10/21 8:27:00 EST, Height/Length Dosing, 92.8, kg, 05/10/21 8:27:00 EST, Weight Dosing Start: 05-10-2021 Test strips, See Instructions, 100 EA, 11, Dx: E11.9 Directions: BID, [facility] #[id number], Supply, 165, cm, 06/11/22 9:10:00 EDT, Height/Length Dosing, 97.6, kg, 06/11/22 9:10:00 EDT, Weight Dosing Start: 06-13-2022 Lancets, See Instructions, 100 EA, 11, Dx: E11.9 Directions: BID, [facility], Supply, 166, cm, 05/10/21 8:27:00 EST, Height/Length Dosing, 92.8, kg, 05/10/21 8:27:00 EST, Weight Dosing Start: 05-10-2021 Test strips, See Instructions, 100 EA, 11, Dx: E11.9 Directions: BID, [facility] #[id number], Supply, 165, cm, 06/11/22 9:10:00 EDT, Height/Length Dosing, 97.6, kg, 06/11/22 9:10:00 EDT, Weight Dosing Start: 06-13-2022 Lancets, See Instructions, 100 EA, 11, Dx: E11.9 Directions: BID, [facility], Supply, 166, cm, 05/10/21 8:27:00 EST, Height/Length Dosing, 92.8, kg, 05/10/21 8:27:00 EST, Weight Dosing Start: 05-10-2021 Test strips, See Instructions, 100 EA, 11, Dx: E11.9 Directions: BID, [facility] #[id number], Supply, 165, cm, 06/11/22 9:10:00 EDT, Height/Length Dosing, 97.6, kg, 06/11/22 9:10:00 EDT, Weight Dosing Start: 06-13-2022 Lancets, See Instructions, 100 EA, 11, Dx: E11.9 Directions: BID, [facility], Supply, 166, cm, 05/10/21 8:27:00 EST, Height/Length Dosing, 92.8, kg, 05/10/21 8:27:00 EST, Weight Dosing Start: 05-10-2021 Test strips, See Instructions, 100 EA, 11, Dx: E11.9 Directions: BID, [facility] #[id number], Supply, 165, cm, 06/11/22 9:10:00 EDT, Height/Length Dosing, 97.6, kg, 06/11/22 9:10:00 EDT, Weight Dosing Start: 06-13-2022 Lancets, See Instructions, 100 EA, 11, Dx: E11.9 Directions: BID, [facility], Supply, 166, cm, 05/10/21 8:27:00 EST, Height/Length Dosing, 92.8, kg, 05/10/21 8:27:00 EST, Weight Dosing Start: 05-10-2021 Test strips, See Instructions, 100 EA, 11, Dx: E11.9 Directions: BID, [facility] #[id number], Supply, 165, cm, 06/11/22 9:10:00 EDT, Height/Length Dosing, 97.6, kg, 06/11/22 9:10:00 EDT, Weight Dosing Start: 06-13-2022 Lancets, See Instructions, 100 EA, 11, Dx: E11.9 Directions: BID, [facility], Supply, 166, cm, 05/10/21 8:27:00 EST, Height/Length Dosing, 92.8, kg, 05/10/21 8:27:00 EST, Weight Dosing Start: 05-10-2021 Test strips, See Instructions, 100 EA, 11, Dx: E11.9 Directions: BID, [facility] #[id number], Supply, 165, cm, 06/11/22 9:10:00 EDT, Height/Length Dosing, 97.6, kg, 06/11/22 9:10:00 EDT, Weight Dosing Start: 06-13-2022 Lancets, See Instructions, 100 EA, 11, Dx: E11.9 Directions: BID, [facility], Supply, 166, cm, 05/10/21 8:27:00 EST, Height/Length Dosing, 92.8, kg, 05/10/21 8:27:00 EST, Weight Dosing Start: 05-10-2021 Test strips, See Instructions, 100 EA, 11, Dx: E11.9 Directions: BID, [facility] #[id number], Supply, 165, cm, 06/11/22 9:10:00 EDT, Height/Length Dosing, 97.6, kg, 06/11/22 9:10:00 EDT, Weight Dosing Start: 06-13-2022 Lancets, See Instructions, 100 EA, 11, Dx: E11.9 Directions: BID, [facility], Supply, 166, cm, 05/10/21 8:27:00 EST, Height/Length Dosing, 92.8, kg, 05/10/21 8:27:00 EST, Weight Dosing Start: 05-10-2021 Test strips, See Instructions, 100 EA, 11, Dx: E11.9 Directions: BID, [facility] #[id number], Supply, 165, cm, 06/11/22 9:10:00 EDT, Height/Length [...] 11, Dx: E11.9 Directions: BID, [facility] #[id number], Supply, 165, cm, 06/11/22 9:10:00 EDT, Height/Length Dosing, 97.6, kg, 06/11/22 9:10:00 EDT, Weight Dosing Start: 06-13-2022 Lancets, See Instructions, 100 EA, 11, Dx: E11.9 Directions: BID, [facility], Supply, 166, cm, 05/10/21 8:27:00 EST, Height/Length Dosing, 92.8, kg, 05/10/21 8:27:00 EST, Weight Dosing Start: 05-10-2021 Test strips, See Instructions, 100 EA, 11, Dx: E11.9 Directions: BID, [facility] #[id number], Supply, 165, cm, 06/11/22 9:10:00 EDT, Height/Length Dosing, 97.6, kg, 06/11/22 9:10:00 EDT, Weight Dosing Start: 06-13-2022 Lancets, See Instructions, 100 EA, 11, Dx: E11.9 Directions: BID, [facility], Supply, 166, cm, 05/10/21 8:27:00 EST, Height/Length Dosing, 92.8, kg, 05/10/21 8:27:00 EST, Weight Dosing Start: 05-10-2021 Test strips, See Instructions, 100 EA, 11, Dx: E11.9 Directions: BID, [facility] #[id number], Supply, 165, cm, 06/11/22 9:10:00 EDT, Height/Length Dosing, 97.6, kg, 06/11/22 9:10:00 EDT, Weight Dosing Start: 06-13-2022 Lancets, See Instructions, 100 EA, 11, Dx: E11.9 Directions: BID, [facility], Supply, 166, cm, 05/10/21 8:27:00 EST, Height/Length Dosing, 92.8, kg, 05/10/21 8:27:00 EST, Weight Dosing Start: 05-10-2021 Test strips, See Instructions, 100 EA, 11, Dx: E11.9 Directions: BID, [facility] #[id number], Supply, 165, cm, 06/11/22 9:10:00 EDT, Height/Length Dosing, 97.6, kg, 06/11/22 9:10:00 EDT, Weight Dosing Start: 06-13-2022 Lancets, See Instructions, 100 EA, 11, Dx: E11.9 Directions: BID, [facility], Supply, 166, cm, 05/10/21 8:27:00 EST, Height/Length Dosing, 92.8, kg, 05/10/21 8:27:00 EST, Weight Dosing Start: 05-10-2021 Test strips, See Instructions, 100 EA, 11, Dx: E11.9 Directions: BID, [facility] #[id number], Supply, 165, cm, 06/11/22 9:10:00 EDT, Height/Length Dosing, 97.6, kg, 06/11/22 9:10:00 EDT, Weight Dosing Start: 06-13-2022 Functional Status Date Assessment Result Facility 04-10-2023 Functional Status N/A [facility] 03-20-2023 Functional Status N/A [facility] 03-04-2023 Functional Status N/A [facility] 02-16-2023 Functional Status N/A [facility] 01-26-2023 Functional Status N/A [facility] 01-06-2023 Functional Status N/A [facility] 09-10-2022 Functional Status N/A [facility] 06-11-2022 Functional Status N/A [facility] 04-07-2022 Functional status [facility] at [facility] Work Phone: 11-28-2021 N/A [facility] 10-28-2021 No [facility] Mental Status Date Assessment Result Facility 04-07-2022 Cognitive function Cognitive Sta tus Patient at [facility] Work Phone: Clinical Notes 01-27-2022 to 04-10-2023 Note Date & Type Note Facility 04-10-2023 Evaluation + Plan note Extrac beatriz from: Title:ED Note Author:Erick BARTH, Radhames Crystal te:04/10/23 Bronchitis (J40: Bronchitis, not specified as acute or chronic) Orders: albuterol, 2 puff(s), Inhalation, q6hr Wheezing, 8.5 gm, Refill(s) 0, [facility] #[id number], 165, cm, 04/10/23 9:26:00 EST, Height/Length Dosing, 96.9, kg, 04/10/23 9:26:00 EST, Weight Dosing azithromycin, = 1 packet(s), Oral, As Directed, as directed on package labeling, X 5 day(s), # 6 tab(s), Refills(s) 0, Pharmacy: [facility] #[id number], 165, cm, 04/10/23 9:26:00 EST, Height/Length Dosing, 96.9, kg, 04/10/23 9:26:00 EST, Weight Dosing predniSONE, 60 mg = 3 tab(s), Oral, Daily, X 7 day(s), # 21 tab(s), Refills(s) 0, Pharmacy: [facility] #[id number], 165, cm, 04/10/23 9:26:00 EST, Height/Length Dosing, 96.9, kg, 04/10/23 9:26:00 EST, Weight Dosing XR Chest 2 Views Future Appointments Appointment Date:07/28/2023 08:00:00 AM Scheduled Provider:Christopher WELLS DO, FAAFP Location:[facility] [employer] Appointment Type: Open Appointment Date:02/01/2024 08:00:00 AM Scheduled Provider: Location:[facility] Appointment Type: Medicare Wellness Subsequent Future Scheduled Tests Laboratory* HgbA1c 03/27/22 * HgbA1c 06/25/22 * HCV Antibody RFX to Quant PCR 01/26/23 [facility]01-26-2024 Hospital Discharge instructions Patient Education 04/10/2023 11:23:39 Acute Bronchitis, Adult Acute Bronchitis, Adult Acute bronchitis is sudden inflammation of the main airways (bronchi) that come off the windpipe (trachea) in the lungs. The swelling causes the airways to get smaller and make more mucus than normal. This can make it hard to breathe and can cause coughing or noisy breathing (wheezing). Acute bronchitis may last several weeks. The cough may last longer. Allergies, asthma, and exposureto smoke may make the condition worse. What are the causes? This condition can be caused by germs and by substances that irritate the lungs, including: Cold and flu viruses. The most common cause of this condition is the virus that causes the common cold. Bacteria. This is less common. Breathing in substances that irritate the lungs, including: ?Smoke from cigarettes and other forms of tobacco. ?Dust and pollen. ?Fumes from household cleaning products, gases, or burned fuel. ?Indoor or outdoor air pollution. What increases the risk? The following factors may make you more likely to develop this condition: A weak body's defense system, also called the immune system. A condition that affects your lungs and breathing, such as asthma. What are the signs or symptoms? Common symptoms of this condition include: Coughing. This may bring up clear, yellow, or green mucus from your lungs (sputum). Wheezing. Runny or stuffy nose. Having too much mucus in your lungs (chest congestion). Shortness of breath. Aches and pains, including sore throat or chest. How is this diagnosed? This condition is usually diagnosed based on: Your symptoms and medical history. A physical exam. You may also have other tests, including tests to rule out other conditions, such as pneumonia. These tests include: A test of lung function. Test of a mucus sample to look for the presence of bacteria. Tests to check the oxygen level in your blood. Blood tests. Chest X-ray. How is this treated? Most cases of acute bronchitis clear up over time without treatment. Your health care provider may recommend: Drinking more fluids to help thin your mucus so it is easier to cough up. Taking inhaled medicine (inhaler) to improve air flow in and out of your lungs. Using a vaporizer or a humidifier. These are machines that add water to the air to help you breathebetter. Taking a medicine that thins mucus and clears congestion (expectorant). Taking a medicine that prevents or stops coughing (cough suppressant). It is not common to take an antibiotic medicine for this condition. Follow these instructions at home: Take vyjo-scb-fpzyaqv and prescription medicines only as told by your health care provider. Use an inhaler, vaporizer, or humidifier as told by your health care provider. Take two teaspoons (10 mL) of honey at bedtime to lessen coughing at night. Drink enough fluid to keep your urine pale yellow. Do not use any products that contain nicotine or tobacco. These products include cigarettes, chewing tobacco, and vaping devices, such as e-cigarettes. If you need help quitting, ask your health careprovider. Get plenty of rest. Return to your normal activities as told by your health care provider. Ask your health care provider what activities are safe for you. Keep all follow-up visits. This is important. How is this prevented? To lower your risk of getting this condition again: Wash your hands often with soap and water for at least 20 seconds. If soap and water are not available, use hand malter operator. Avoid contact with people who have cold symptoms. Try not to touch your mouth, nose, or eyes with your hands. Avoid breathing in smoke or chemical fumes. Breathing smoke or chemical fumes will make your condition worse. Get the flu shot every year. Contact a health care provider if: Your symptoms do not improve after 2 weeks. You have trouble coughing up the mucus. Your cough keeps you awake at night. You have a fever. Get help right away if you: Cough up blood. Feel pain in your chest. Have severe shortness of breath. Faint or keep feeling like you are going to faint. Have a severe headache. Have a fever or chills that get worse. These symptoms may represent a serious problem that is an emergency. Do not wait to see if the symptoms will go away. Get medical help right away. Call your local emergency services (911 in the [place] Do not drive yourself to the hospital. Summary Acute bronchitis is inflammation of the main airways (bronchi) that come off the windpipe (trachea)in the lungs. The swelling causes the airways to get smaller and make more mucus than normal. Drinking more fluids can help thin your mucus so it is easier to cough up. Take zamx-lgh-rqnnyuc and prescription medicines only as told by your health care provider. Do not use any products that contain nicotine or tobacco. These products include cigarettes, chewing tobacco, and vaping devices, such as e-cigarettes. If you need help quitting, ask your health careprovider. Contact a health care provider if your symptoms do not improve after 2 weeks. This information is not intended to replace advice given to you by your health care provider. Make sure you discuss any questions you have with your health care provider. Document Revised: 06/12/2022 Document Reviewed: 07/03/2021 [employer] Patient Education 2022 eÇift. Follow Up Care 04/10/2023 09:14:32 With:Christopher WELLS Address: [address], [place] [address]- [facility] (1) When:04/13/2023 11:17:35 [facility]01-05-2024 Hospital Discharge instructions Patient Education 03/20/2023 09:32:40 Diabetes Mellitus [...] plan? Your health care provider or certified pharmacy technician can help you make a plan for [...] (heat stroke). Where to find more information [place] Diabetes Association: www.diabetes.org Summary Exercising regularly is important for overall health, especially for people who have diabetes mellitus. Exercising has many health benefits. It increases muscle strength and bone density and reduces bodyfat and stress. It also lowers and controls blood glucose. Your health care provider or certified pharmacy technician can help you make an activity plan for thetype and frequency of exercise that works for [...] provider. Document Revised: 11/28/2019 Document Reviewed: 11/28/2019 [employer] Patient Education 2022 eÇift. Follow Up Care 12/18/2022 08:59:12 With:Christopher WELLS DO, FAAFP, FAM, PED Address: [place] [address]- When:Within 4 Month(s) [facility] 12-20-2023 Evaluation + Plan noteExtracted from: Title:Left hip intra-articul ar corticosteroid injection Author:Nicola Tapia DO. Date:03/04/23 Diagnosis: M16.12, left hip pain/osteoarthritis Procedure: [...] 09:00:00 AM Scheduled Provider:Christopher WELLS DO, FAAFP Location:[facility] Appointment Type:FM Open Appointment Date:03/23/2023 08:30:00 AM Scheduled Provider:Mara Pastor PA-C Location:[facility] Appointment Type:Pain Management - Follow Up (FT) Appointment Date:02/01/2024 08:00:00 AM Scheduled Provider: Location:[facility] Appointment Type: Medicare Wellness Subsequent Future Scheduled Tests Laboratory* HgbA1c 03/27/22 * HgbA1c 06/25/22 * HCV Antibody RFX to Quant PCR 01/26/23 [facility]12-20-2023 Note [id number]23 NoteDiagnosis: M16.12, left hip pain/osteoarthritis Procedure: [...] procedure, and agrees to continue currently prescribed/recommended therapies.[facility] Comment on above:Result Comment: Electronically Signed By: Nicola Tapia DO.maria teresa\Date and Time Signed: 03/04/23 09:06 [id number] Evaluation note* Encounter Date Diagnosis Assessment Notes [...] sooner should she deteriorate in any way [employer] Other [phone] History of Present illness Narrative* Fariha Guidry [...] I suggested that she discuss with her public bath attendant the addition of ZXUY9lakbcscbc or GLP agonists. Reviewed with the patient [...] complications. 5. Diabetes, managed by endocrinology in [place]. A1c remains above target, advised patient to discuss with the public bath attendant more aggressive therapy. 6. Hypertension completely under control. 7. High-risk medication with Xarelto, so far well-tolerated. Takes baby aspirin twice weekly 8. Stage III chronic kidney disease to be monitored closely, she follow with nephrology 9. intermittent claudications and PAD followed by vascular surgery in [place]. Patient is scheduled next week to have revascularization for intermittent claudication 10. Sleep apnea not consistently using CPAP machine. Encouraged the patient to utilize it daily. Fariha Guidry MD, [facility] Review of Systems All other systems [...] 2 times a day., Disp: , Rfl: Loli Veliz U-100 Insulin 100 unit/mL insulin pen, [...] tablet, Rfl: 3 Assessment/Plan 1. 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 Status post coronary angioplasty Follow Up In Cardiology 3. Essential hypertension Follow Up In Cardiology 4. Hyperlipidemia, unspecified hyperlipidemia type atorvastatin (Lipitor) 40 mg tablet Alanine Aminotransferase Aspartate Aminotransferase Lipid Panel 5. PVD (peripheral vascular disease) ([facility] 6. Stage 3 chronic kidney disease, unspecified whether stage 3a or 3b CKD ([facility]) 7. Sleep apnea, unspecified [facility] Phone: 1(859) 433-649411-30-2023 Instructions* Patient Instructions* Saloni Benavides LPN - [...] Follow up 6 [facility] Work Phone: [phone]) 343-764511-13-2023 Hospital Discharge instructions Patient Education 01/26/2023 09:01:27 [...] Carrots. Green beans. Tomatoes. Peppers. Onions. Cucumbers. Nathalie sprouts. Grains Whole grains, such as whole-wheat [...] meet with a certified diabetes care and adult basic education instructor? Do I need to meet with a dietitian? What number can I call if I have questions? When are the best times to check my blood glucose? Where to find more information: [place] Diabetes Association: diabetes.org Academy of Nutrition and Dietetics: eatright.org National [place] of Diabetes and Digestive and Kidney Diseases: [...] provider. Document Revised: 10/03/2020 Document Reviewed: 10/03/2020 [employer] Patient Education 2022 eÇift. 01/26/2023 09:01:11 Fall Prevention in the Home, Adult, Aguy-zd-Niwt Fall Prevention in the Home, Adult Falls [...] Keep items that you use often in xuvh-hx-hurwz places. Lower the shelves around your home [...] of the way. Do not use floor malagasy or wax that makes floors slippery. What [...] for Disease Control and PreventionKELLEY: www.cdc.gov National [place] on Aging: www.sav[place].nih.gov Contact a doctor if: [...] provider. Document Revised: 12/02/2021 Document Reviewed: 10/03/2020 [employer] Patient Education 2022 eÇift. 01/26/2023 09:01:04 Hepatitis C, Dzhm-zk-Fcwd Hepatitis C Hepatitis C is a liver [...] organ donations that were done in the [facility] before 1991. What increases the risk? Having [...] Follow these instructions at home: Medicines Take jdhc-lbm-amtavhn and prescription medicines only as told by your doctor. If you were given an antiviral medicine, take it as told by your doctor. Do not stop using the antiviral even if you start to feel better. Do not take any new medicines unless your doctor says that this is okay. This includes oepz-elc-gmxgdxv medicines and supplements. Activity Rest as needed. [...] not have soap and water, use hand malter operator. Cover any cuts or open sores on [...] provider. Document Revised: 01/17/2021 Document Reviewed: 01/17/2021 [employer] Patient Education 2022 eÇift. 01/26/2023 09:00:41 Exercising to Lose Weight Exercising [...] your health care provider or diet and nutritional assistant (dietitian). This may include: ?Eating fewer [...] provider. Document Revised: 04/28/2021 Document Reviewed: 04/28/2021 [employer] Patient Education 2022 eÇift. 01/26/2023 09:00:38 Cooking With Less Salt Cooking [...] salt. Use sodium-free baking soda when baking. [place], braise, or roast foods to add flavor with less salt. Avoid adding salt to pasta, rice, or hot cereals. Drain and rinse canned vegetables, beans, and meat before use. Avoid adding salt when cooking sweets and desserts. Cook with low-sodium ingredients. What foods are high in sodium? Vegetables Regular canned vegetables (not low-sodium or reduced-sodium). Sauerkraut, pickled vegetables, and relishes. Olives. Croatian fries. Onion rings. Regular canned tomato sauce [...] Soy milk. Yogurt. Low-sodium cheeses, such as Croatian, [place]ing Teodoro, mozzarella, and ricotta. Sherbet or ice [...] foods you can pair it with. Herbs [place] leaves Soups, meat and vegetable dishes, and spaghetti sauce. Basil Syrian dishes, soups, pasta, and fish dishes. Cilantro Meat, poultry, and vegetable dishes. [place] powder Marinades and Luxembourger dishes. Chives Salad dressings and potato dishes. Cumin Luxembourger dishes, couscous, and meat dishes. Dill Fish dishes, sauces, and salads. Fennel Meat and vegetable dishes, breads, and cookies. Garlic (do not use garlic salt) Syrian dishes, meat dishes, salad dressings, and sauces. Marjoram Soups, potato dishes, and meat dishes. Oregano Pizza and spaghetti sauce. Parsley Salads, soups, pasta, and meat dishes. Vanita Syrian dishes, salad dressings, soups, and red meats. [...] provider. Document Revised: 02/22/2020 Document Reviewed: 02/22/2020 [employer] Patient Education 2022 eÇift. 01/26/2023 09:00:36 BMI for Adults BMI for [...] numbers. This can be done either in [place] ([place] or metric measurements. Note that charts and online BMI calculators are available to help you find your BMI quickly and easily without having to do these calculations yourself. To calculate your BMI in [place] ([place] measurements: 1.Measure your weight in pounds [...] Centers for Disease Control and Prevention: www.cdc.gov [place] Heart Association: www.heart.org National Heart, Lung, and Blood [place]: www.nhlbi.nih.gov Summary Body mass index (BMI) is a number that is calculated from a person's weight and height. BMI may help estimate how much of a person's weight is composed of fat. BMI can help identify thosewho may be at higher risk for certain medical problems. BMI can be measured using Rwandan measurements or metric measurements. BMI charts are used to identify whether you are underweight, normal weight, overweight, or obese. This information is not intended to replace advice given to you by your health care provider. Make sure you discuss any questions you have with your health care provider. Document Revised: 11/23/2019 Document Reviewed: 09/30/2019 [employer] Patient Education 2022 eÇift. [facility] 10-24-2023 Evaluation + Plan noteExtracted from: Title:NPV Author:Gary Cerda MD Date :10/24/23 Impression and Plan 72-year-old female with severe [...] Appointments Appointment Date:01/26/2023 08:00:00 AM Scheduled Provider: Location:[facility] Appointment Type: Medicare Wellness Subsequent Appointment Date:03/12/2023 08:00:00 AM Scheduled Provider:Linda Solorio CNP Location:[facility] Digestive [facility] Appointment Type:BADH Follow Up Appointment Date:03/20/2023 09:00:00 AM Scheduled Provider:Christopher WELLS DO, FAAFP Location:[facility] Appointment Type: Open [facility] Scheduled Tests Laboratory* HgbA1c 03/27/22 * HgbA1c 06/25/22 [facility]10-23-2023 Evaluation note* Encounter Date Diagnosis Assessment [...] understands and is agreement with that plan. [facility] Other 10-11-2023 NoteMicrobiology PROCEDURE: Wound Culture [R1] SOURCE: Abscess BODY SITE: Leg L COLLECTED DATE/TIME: 12/22/2022 08:00 EDT RECEIVED DATE/TIME: 12/22/2022 12:42 EDT START DATE/TIME: 12/22/2022 12:42 EDT FREE TEXT SOURCE: Suzan CHARLTON, Denton Mares DPM, Denton Gomez FINAL REPORTS Final Report [] Verified Date/Time: [...] Locations R1: This test was performed at: [facility], [address] [place] [address], [id number] , , [facility]ytK[facility]Comment on above:Performed By: #### [id number] #### [facility] [address] [place] [address] [id number] Evaluation note* Encounter Date Diagnosis Assessment Notes [...] to see her back in 2 months. [employer] Other 08-21-2023 Evaluation note* Encounter Date Diagnosis [...] call us with any issues or concerns. [facility] Other 06-28-2023 Hospital Discharge instructions Patient Education [...] oral rehydration solution (ORS). This is an nlxw-wcv-newiimb medicine that helps return your body to [...] drinks, sports drinks, and soda. Eat bland, kgib-uv-xsdgug foods in small amounts as you are able. These foods include bananas, applesauce, rice, lean meats, toast, and crackers. Avoid alcohol. Avoid spicy or fatty foods. Medicines Take eiyd-ehf-pmuoccv and prescription medicines only as told by your health care provider. If you were prescribed an antibiotic medicine, take it as told by your health care provider. Do notstop using the antibiotic even if you start to feel better. General instructions Wash your hands often using soap and water. If soap and water are not available, use a hand malter operator. Others in the household should wash their [...] soap and water are not available, usehand malter operator. Contact a health care provider if your diarrhea gets worse or you have new symptoms. Get help right away if you have signs of dehydration. This information is not intended to replace advice given to you by your health care provider. Make sure you discuss any questions you have with your health care provider. Document Revised: 09/11/2021 Document Reviewed: 09/11/2021 [employer] Patient Education 2022 eÇift. 09/10/2022 07:52:51 High-Fiber Eating Plan High-Fiber Eating [...] Bulgur wheat. Millet. Quinoa. Bran muffins. Popcorn. [place] wafer crackers. Meats and other proteins [place] beans, kidney beans, and chase beans. Soybeans. [...] Cream cheese. Sour cream. Fats and oils [place]. Beverages Soft drinks. Other foods Cakes and [...] provider. Document Revised: 07/05/2020 Document Reviewed: 07/05/2020 [employer] Patient Education 2022 eÇift. Follow Up Care 06/11/2022 09:32:08 With:Linda Solorio CNP Address: When:6 months [facility] 03-29-2023 Hospital Discharge instructions [...] per serving. Talk with a diet and nutritional assistant (dietitian) if you have questions about [...] Bulgur wheat. Millet. Quinoa. Bran muffins. Popcorn. [place] wafer crackers. Meats and other proteins [place], kidney, and chase beans. Soybeans. Split peas. [...] Cream cheese. Sour cream. Fats and oils [place]. Beverages Soft drinks. Other foods Cakes and [...] 03/02/2006 Document Revised: 01/04/2018 Document Reviewed: 01/04/2018 [employer] Patient Education 2020 eÇift. 06/11/2022 09:15:20 Hemorrhoids Hemorrhoids Hemorrhoids are swollen [...] 3 times a day. General instructions Take tshi-oum-fnpgtoa and prescription medicines only as told by [...] 02/27/2001 Document Revised: 07/29/2019 Document Reviewed: 07/22/2018 [employer] Patient Education 2020 [employer] 06/11/2022 09:15:19 Colon Polyps Colon Polyps Polyps [...] 11/26/2004 Document Revised: 06/17/2018 Document Reviewed: 06/17/2018 [employer] Patient Education [place]. Follow Up Care 06/09/2022 16:22:13 With:Linda Solorio CNP Address: When:3 months [facility] [id number] Note [id number]:127[facility] 05-05-2022 Evaluation note* Encounter Date Diagnosis Assessment Notes Treatment Notes Treatment Clinical Notes Apr, Peripheral vascular disease, unspecified (ICD-10 - I73.9) Apr, Other specified postprocedural states (ICD-10 - Z98.890) Apr, Other Peripheral arterial occlusive disease She has a good clinical outcome. I will see her back in 6 months with ABIs on that day. She will continue her current medical regimen. [facility] Other 01-24-2023 Evaluation note* Encounter Date Diagnosis Assessment Notes Treatment Notes Treatment Clinical Notes Mar, Post-op pain (ICD-10 - G89.18) [employer] Other 01-16-2023 Evaluation + Plan note Diagnostic Tests Pending * PTH Intact 03/31/22 * Immunofixation Serum 03/31/22 * Immunofixation, Urine 03/31/22 * C3 Complement 03/31/22 * C4 Complement 03/31/22 * Free K+L Lt Chains,Qn,S 03/31/22 Future Scheduled Tests Laboratory* HgbA1c 03/27/22 * HgbA1c 06/25/22 [facility] Evaluation note* Encounter Date Diagnosis Assessment [...] of both lower extremities (ICD-10 - I73.9) [facility] Other 01-12-2023 Evaluation + Plan note Future Scheduled Tests Laboratory* HgbA1c 03/27/22 * HgbA1c 06/25/22 [facility]11-14-2022 Evaluation note* Encounter Date Diagnosis Assessment [...] in 2 months time with the ABIs. 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59 (F Appointment Date:10/16/2021 01:00:00 PM Scheduled Provider: [facility] Type[facility]DM Diabetes Group () [facility] Primary Care Evaluation + Plan note Future Appointments Appointment Date:10/15/2021 09:00:00 AM Scheduled Provider: Location:.DIETARY Appointment Type:DM Diabetes Group () Appointment Date:10/28/2021 09:45:00 AM Scheduled Provider:Charis Daniel MD Location[facility] Appointment Type:Vascular New Patient () Appointment Date:12/16/2021 09:40:00 AM Scheduled Provider:Christopher WELLS DO, FAAFP Location:[facility] Appointment Type: Open Future Scheduled Tests Laboratory* HgbA1c 12/25/21 * HgbA1c 03/27/22 * HgbA1c 06/25/22 Radiology* US PVR Lower EXT Complete Bilat 09[facility]24[facility]21 [facility] App[facility]ments Appointment Date:10/15/2021 09:00:00 AM Scheduled Provider: [facility] Type:DM Diabetes Group (FT) Appointment Date:10/28/2021 09:45:00 AM Scheduled Provider:Charis Daniel MD Location[facility] Appointment Type:Vascular New Patient (FT) Appointment Date:12/16/2021 09:40:00 AM Scheduled Provider:Christopher WELLS DO, FAAFP Location:[facility] Appointment Type:FM Open Future Scheduled Tests Laboratory* HgbA1c 12/25/21 * HgbA1c 03/27/22 * HgbA1c 06/25/22 [facility] App[facility]ments Appointment Date:12/16/2021 09:40:00 AM Scheduled Provider:Christopher WELLS DO, FAAFP Location:[facility] Appointment Type:FM Open Appointment Date:01/02/2022 01:00:00 PM Scheduled Provider: [facility] Type:DM Diabetes Group (FT) Future Scheduled Tests Laboratory* HgbA1c 12/25/21 * HgbA1c 03/27/22 * HgbA1c 06/25/22 Radiology* US LE Venous Duplex Insufficiency Bilat 10/28/21 * CTA Abd Aorto-bilat/ iliofemoral runoff 10/28/21 [facility] App[facility]ments Appointment Date:12/16/2021 09:40:00 AM Scheduled Provider:Christopher WELLS DO, FAAFP Location:[facility] Appointment Type:FM Open Appointment Date:01/02/2022 01:00:00 PM Scheduled Provider: [facility] App[facility] Type:DM Diabetes Group (FT) Appointment Date:02/24/2022 09:00:00 AM Scheduled Provider:Charis Daniel MD Location[facility] Appointment Type:Vascular Follow Up (FT) Future Scheduled Tests Laboratory* HgbA1c 12/25/21 * HgbA1c 03/27/22 * HgbA1c 06/25/22 [facility] App[facility]ments Appointment Date:02/24/2022 09:00:00 AM Scheduled Provider:Charis Daniel MD Location[facility] Appointment Type:Vascular Follow Up (FT) Future Scheduled Tests Laboratory* HgbA1c 12/25/21 * HgbA1c 03/27/22 * HgbA1c 06/25/22 [facility] App[facility]ments Appointment Date:02/24/2022 09:00:00 AM Scheduled Provider:Charis Daniel MD [facility] Type:Vascular Follow Up (FT) Future Scheduled Tests Laboratory* HgbA1c 03/27/22 * HgbA1c 06/25/22 [facility] Appointments Appointment Date:05/21/2022 01:05:00 PM Scheduled Provider: Location:[facility] Appointment Type:Surgery FT Diagnostic Tests Pending * O & P Exam, Routine 05/08/22 * Giardia lamblia, Direct Detection EIA 05/08/22 Future Scheduled Tests Laboratory* HgbA1c 03/27/22 * HgbA1c 06/25/22 [facility] Appointments Appointment Date:09/10/2022 08:00:00 AM Scheduled Provider:Linda Solorio CNP Location:[facility] Appointment Type:BAD Follow Up Future Scheduled Tests Laboratory* HgbA1c 03/27/22 * HgbA1c 06/25/22 [facility] Evaluation + Plan note Future Appointments Appointment Date:03/12/2023 08:00:00 AM Scheduled Provider:Linda Solorio CNP Location:[facility] Appointment Type:BAD Follow Up Future Scheduled Tests Laboratory* HgbA1c 03/27/22 * HgbA1c 06/25/22 [facility] Evaluation + Plan note Future Appointments Appointment Date:12/18/2022 08:20:00 AM Scheduled Provider:Christopher WELLS DO, FAAFP Location:[facility] [employer] Appointment Type: Open Appointment Date:01/26/2023 08:00:00 AM Scheduled Provider: Location:[facility] Appointment Type: Medicare Wellness Subsequent Appointment Date:03/12/2023 08:00:00 AM Scheduled Provider:Linda Solorio CNP Location:[facility] Appointment Type:BAD Follow Up Future Scheduled Tests Laboratory* HgbA1c 03/27/22 * HgbA1c 06/25/22 [facility] Future App[facility]ments Appointment Date:01/06/2023 08:30:00 AM Scheduled Provider:[facility]da MD [facility] Type:Pain Management - New (FT) Appointment Date:01/26/2023 08:00:00 AM Scheduled Provider: Location:[facility] Appointment Type: Medicare Wellness Subsequent Appointment Date:03/12/2023 08:00:00 AM Scheduled Provider:Linda Solorio CNP Location:[facility] Appointment Type:BAD Follow Up Appointment Date:03/20/2023 09:00:00 AM Scheduled Provider:Christopher WELLS DO, FAAFP Location:[facility] Appointment Type: Open Future Scheduled Tests Laboratory* HgbA1c 03/27/22 * HgbA1c 06/25/22 [facility] App[facility]ments Appointment Date:01/19/2023 09:30:00 AM Scheduled Provider: [facility] Appointment Type:WC Assessment (FT) Appointment Date:01/26/2023 08:00:00 AM Scheduled Provider: Location:[facility] Appointment Type: Medicare Wellness Subsequent Appointment Date:01/27/2023 02:00:00 PM Scheduled Provider:Denton Mares DPM [facility] Appointment Type:WC Follow Up Visit (FT) Appointment Date:02/02/2023 09:45:00 AM Scheduled Provider: [facility] Appointment Type:Surgery FT Appointment Date:02/17/2023 08:45:00 AM Scheduled Provider:Gary Cerda MD Location:[facility] Appointment Type:Pain Management - Follow Up (FT) Appointment Date:03/12/2023 08:00:00 AM Scheduled Provider:Linda Solorio CNP Location:[facility] Appointment Type:BAD Follow Up Appointment Date:03/20/2023 09:00:00 AM Scheduled Provider:Christopher WELLS DO, FAAFP Location:[facility] Appointment Type:FM Open Future Scheduled Tests Laboratory* HgbA1c 03/27/22 * HgbA1c 06/25/22 [facility] Future App[facility]ments Appointment Date:01/26/2023 08:00:00 AM Scheduled Provider: Location:[facility] Appointment Type:FM Medicare Wellness Subsequent Appointment Date:01/27/2023 02:00:00 PM Scheduled Provider:Denton Mares DPM [facility] Appointment Type:WC Follow Up Visit (FT) Appointment Date:02/02/2023 09:45:00 AM Scheduled Provider: Location:[facility] Appointment Type:Surgery FT Appointment Date:02/17/2023 08:45:00 AM Scheduled Provider:Gary Cerda MD [facility] Type:Pain Management - Follow Up (FT) Appointment Date:03/12/2023 08:00:00 AM Scheduled Provider:Linda Solorio CNP Location:[facility] Appointment Type:BAD Follow Up Appointment Date:03/20/2023 09:00:00 AM Scheduled Provider:Christopher WELLS DO, FAAFP Location:[facility] Appointment Type:FM Open Future Scheduled Tests Laboratory* HgbA1c 03/27/22 * HgbA1c 06/25/22 [facility] App[facility]ments Appointment Date:01/27/2023 02:00:00 PM Scheduled Provider:Denton Mares DPM [facility] Appointment Type:WC Follow Up Visit (FT) Appointment Date:02/02/2023 09:45:00 AM Scheduled Provider: Location:[facility] Appointment Type:Surgery FT Appointment Date:02/17/2023 08:45:00 AM Scheduled Provider:Gary Cerda MD [facility] Appointment Type:Pain Management - Follow Up (FT) Appointment Date:03/12/2023 08:00:00 AM Scheduled Provider:Linda Solorio CNP Location:[facility] Appointment Type:BAD Follow Up Appointment Date:03/20/2023 09:00:00 AM Scheduled Provider:Christopher WELLS DO, FAAFP Location:[facility] Appointment Type:FM Open Appointment Date:02/01/2024 08:00:00 AM Scheduled Provider: Location:[facility] Appointment Type:FM Medicare Wellness Subsequent Future Scheduled Tests Laboratory* HgbA1c 03/27/22 * HgbA1c 06/25/22 * HCV Antibody RFX to Quant PCR 01/26/23 [facility] Primary Care Evaluation + Plan note Future Appointments Appointment Date:02/02/2023 09:45:00 AM Scheduled Provider: [facility] Appointment Type:Surgery FT Appointment Date:02/10/2023 02:30:00 PM Scheduled Provider:Denton Mares DPM [facility] Appointment Type:WC Follow Up Visit (FT) Appointment Date:02/17/2023 08:45:00 AM Scheduled Provider:Gary Cerda MD Location:[facility] Appointment Type:Pain Management - Follow Up (FT) Appointment Date:03/12/2023 08:00:00 AM Scheduled Provider:Linda Solorio CNP Location:[facility] Dig[facility] Appointment Type:BADH Follow Up Appointment Date:03/20/2023 09:00:00 AM Scheduled Provider:Christopher WELLS DO, FAAFP Location:[facility] Appointment Type: Open Appointment Date:02/01/2024 08:00:00 AM Scheduled Provider: Location:[facility] Appointment Type:FM Medicare Wellness Subsequent Future Scheduled Tests Laboratory* HgbA1c 03/27/22 * HgbA1c 06/25/22 * HCV Antibody RFX to Quant PCR 01/26/23 [facility] App[facility]ments Appointment Date:02/16/2023 01:45:00 PM Scheduled Provider: [facility] Appointment Type:WC Assessment (FT) Appointment Date:02/16/2023 02:15:00 PM Scheduled Provider: [facility] Appointment Type:Surgery FT Appointment Date:02/24/2023 02:00:00 PM Scheduled Provider:Denton Mares DPM [facility] Appointment Type:WC Follow Up Visit (FT) Appointment Date:03/02/2023 08:15:00 AM Scheduled Provider:Mara Pastor PA-C Location:[facility] Appointment Type:Pain Management - Follow Up (FT) Appointment Date:03/02/2023 09:40:00 AM Scheduled Provider:Linda Solorio CNP Location:[facility] Dig[facility] Appointment Type:BAD Follow Up Appointment Date:03/20/2023 09:00:00 AM Scheduled Provider:Christopher WELLS DO, FAAFP Location:[facility] Appointment Type:FM Open Appointment Date:02/01/2024 08:00:00 AM Scheduled Provider: Location:[facility] Appointment Type:FM Medicare Wellness Subsequent Future Scheduled Tests Laboratory* HgbA1c 03/27/22 * HgbA1c 06/25/22 * HCV Antibody RFX to Quant PCR 01/26/23 [facility] App[facility]ments Appointment Date:02/24/2023 02:00:00 PM Scheduled Provider:Denton Mraes DPM [facility] Appointment Type:WC Follow Up Visit (FT) Appointment Date:03/02/2023 09:40:00 AM Scheduled Provider:Linda Solorio CNP Location:[facility] Appointment Type:[facility] Follow Up Appointment Date:03/04/2023 08:45:00 AM Scheduled Provider: Location[facility] Appointment Type:Surgery FT Appointment Date:03/20/2023 09:00:00 AM Scheduled Provider:Christopher WELLS DO, FAAFP Location:[facility] Appointment Type:FM Open Appointment Date:03/23/2023 08:30:00 AM Scheduled Provider:Mara Pastor PA-C Location:[facility] Appointment Type:Pain Management - Follow Up (FT) Appointment Date:02/01/2024 08:00:00 AM Scheduled Provider: Location:[facility] Appointment Type:FM Medicare Wellness Subsequent Future Scheduled Tests Laboratory* HgbA1c 03/27/22 * HgbA1c 06/25/22 * HCV Antibody RFX to Quant PCR 01/26/23 [facility] App[facility]ments Appointment Date:03/03/2023 02:30:00 PM Scheduled Provider:Denton Mares DPM [facility] Appointment Type:WC Follow Up Visit (FT) Appointment Date:03/04/2023 08:45:00 AM Scheduled Provider: Location[facility] Appointment Type:Surgery FT Appointment Date:03/20/2023 09:00:00 AM Scheduled Provider:Christopher WELLS DO, FAAFP Location:[facility] Appointment Type:FM Open Appointment Date:03/23/2023 08:30:00 AM Scheduled Provider:Mara Pastor PA-C [facility] Appointment Type:Pain Management - Follow Up (FT) Appointment Date:02/01/2024 08:00:00 AM Scheduled Provider: Location:[facility] Appointment Type: Medicare Wellness Subsequent Future Scheduled Tests Laboratory* HgbA1c 03/27/22 * HgbA1c 06/25/22 * HCV Antibody RFX to Quant PCR 01/26/23 [facility] Dig[facility] Evaluation + Plan note Future Appointments Appointment Date:03/04/2023 08:45:00 AM Scheduled Provider: Location:[facility] Appointment Type:Surgery FT Appointment Date:03/20/2023 09:00:00 AM Scheduled Provider:Christophre WELLS DO, FAAFP Location:[facility] Appointment Type:FM Open Appointment Date:03/23/2023 08:30:00 AM Scheduled Provider:Mara Pastor PA-C [facility] Appointment Type:Pain Management - Follow Up (FT) Appointment Date:02/01/2024 08:00:00 AM Scheduled Provider: Location:[facility] Appointment Type: Medicare Wellness Subsequent Future Scheduled Tests Laboratory* HgbA1c 03/27/22 * HgbA1c 06/25/22 * HCV Antibody RFX to Quant PCR 01/26/23 [facility] App[facility]ments Appointment Date:03/23/2023 08:30:00 AM Scheduled Provider:Mara Pastor PA-C [facility] Appointment Type:Pain Management - Follow Up (FT) Appointment Date:07/28/2023 08:00:00 AM Scheduled Provider:Christopher WELLS DO, FAAFP Location:[facility] Appointment Type:FM Open Appointment Date:02/01/2024 08:00:00 AM Scheduled Provider: Location:[facility] Appointment Type: Medicare Wellness Subsequent Future Scheduled Tests Laboratory* HgbA1c 1/12/23 * HgbA1c 06/25/22 * HCV Antibody RFX to Quant PCR 01/26/23 [facility] Primary Care Evaluation noteNo assessment information available [facility] Work Phone: Evaluation noteNo InformationN[employer] Other Evaluation note* Diagnosis Atherosclerosis of shoshone[place]bann[place] coronary artery of shoshone[place]bannock heart without angina pectoris Status post coronary angioplasty Postsurgical percutaneous transluminal coronary angioplasty status Essential hypertension Unspecified essential hypertension Hyperlipidemia, unspecified hyperlipidemia type PVD (peripheral vascular disease) ([facility] Unspecified peripheral vascular disease Stage 3 chronic kidney disease, unspecified whether stage 3a or 3b CKD ([facility]) Sleep apnea, unspecified type documented in this encounter [facility] Work Phone: History general Narrative - [...] stent 3 STENTS Hospitalization History see above [facility] Other Hisaikc general Narrative - Reported* Type Description Date [...] LEG ANGIOPLASTY 03/2022 Hospitalization History see above [facility] Other Hospital course Narrative No data available for this section [facility] Primary Care Hospital Discharge instructions No data available for this section [facility] Primary Care Progress note No data available for this section [facility] Consultation (Routine) - Authorized Specialty Diagnoses / Procedures Referred By Fariha t Referred To Contact Cardiology Diagnoses Atherosclerosis of shoshone-bannock coronary artery of shoshone-bannock heart without angina pectoris Status post coronary angioplasty Essential hypertension Procedures Follow Up In Cardiology Fariha Guidry MD [address] [facility] [address], [place] [address] [place] [id number] Fariha Guidry MD [address] [facility] [address], [place] [place] [address] Referral ID Status Reason Start Date Expiration Date V isits Requested Visits Authorized [id number] Authorized 02/12/2023 02/12/2024 1 1 [facility] Work Phone: Chief Complaint * EVON [...] * 5. Diabetes, managed by endocrinology in [place]. A1c remains above target * 6. Hypertension completely under control. * 7. High-risk medication with Xarelto, so far well-tolerated. Takes baby aspirin twice weekly * 8. Stage III chronic kidney disease to be monitored closely * 9. Recent diagnosis of intermittent claudications and PAD followed by vascular surgery Dr. Fredy Kaplan, she is currently going through walking exercise program * Fariha Guidry MD, [facility] Summary Purpose Family History Relationship Condition [...] Provider Active [facility] Attending Provider Active Rn Neurosurgical Relationship Specialty Start Date End Date Christopher Wells DO [address] [facility]- [address] [place] [address] PCP - General 08/02/18 INFORMATION SOURCE (unrecogn ized section and content) DATE CREATED AUTHOR 01/16/2022 [facility] DATE CREATED AUTHOR AUTHOR'S ORGANIZ ATION 01/16/2022 [employer] DATE CREATED AUTHOR AUTHOR'S ORGANIZ ATION 09/19/2022 [facility] DATE CREATED AUTHOR AUTHOR'S ORGANIZ ATION 02/14/2023 [facility] DATE CREATED AUTHOR AUTHOR'S ORGANIZ ATION 02/28/2023 [facility] DATE CREATED AUTHOR AUTHOR'S ORGANIZ ATION 03/19/2023 [facility] EPIC DATE CREATED AUTHOR AUTHOR'S ORGANIZ ATION 04/12/2023 [facility] REASON FOR VISIT (unrecogniz ed section [...] BE BASED ON THE PRIMARY CLINICAL RECORDS. [email or web address] [facility]. provides no warranty or guarantee of the accuracy or completeness of information in this document.
[2023-04-16] MEDS: 0.9 % SODIUM CHLORIDE 500 ML, LIDOCAINE HCL 20 ML, SODIUM BICARBONATE 10 MEQ INJ (08:20)
[2023-04-16] MEDS: LIDOCAINE HCL 1% 100 MG/10 ML MDV INJ (08:20)
== END 2023-04-16 07:54 | disposition home or self-care (01) ==
LOC: VC 07:57
PROVIDERS: PCP Radiology Diagnostic Radiology; Visit Provider Radiology Diagnostic Radiology
DX: I83.813 Varicose veins of bilateral lower extremities with pain (principal)
CPT/HCPCS: 36478

== ENCOUNTER 2023-04-23 07:46 | Outpatient (OUT) | payer MEDICARE, BC, SELFPAY ==
--- NOTE | 2023-04-23 07:49 | VEIN_ITS ---
Patient Name: GEOVANNY CORCORAN MR#: [id number] : 1950 Exam Date: 04/23/2023 Ordering Doctor: DR GOMEZ SHER M.D. RADIOLOGY REPORT PROCEDURE: [facility] - OFFICE VISIT FOLLOW UP [facility] PROGRESS NOTES: The patient reports some mild discomfort of the left leg following intravenous laser ablation of the left great saphenous vein. The patient did not require oral analgesics. The patient has worn her compression stocking. The patient has tried to do some exercise within the limitations the winter weather. Physical exam demonstrates a 3 cm area of bruising left mid medial thigh likely related to tumescence injection. Thrombosed left great saphenous vein can partially palpated. The area of the left great saphenous vein is slightly warm erythematous likely related to mild post ablation thrombophlebitis. Encouraged patient to take ibuprofen if needed to control the inflammatory process Review of the ultrasound performed the same day demonstrates occlusive thrombus extending throughout the treated left great saphenous vein. Heat induced thrombus is 2.4 cm from the saphenofemoral junction. No deep vein thrombus. The patient expressed a desire to proceed with treatment of incompetent left leg perforating veins associated ulceration. VEIN/[facility] EST TD IMPRESSION: 1. Successful ablation of the left great saphenous vein 2. 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 PLAN: Intravenous laser ablation left leg incompetent perforating veins Nurse notes, history and physical were reviewed and confirmed, see attached forms. The nurse was present throughout the physical exam and consultation Dictated by: Gomez Sher MD on 04/23/2023 at 08:26 Approved by: Gomez Sher MD on 04/23/2023 at 08:27
--- NOTE | 2023-04-23 07:50 | VEIN_ITS ---
Patient Name: GEOVANNY CORCORAN MR#: [id number] : 1950 Exam Date: 04/23/2023 Ordering Doctor: DR GOMEZ SHER M.D. RADIOLOGY REPORT PROCEDURE: VC EXT VENOUS LT LIMITED COMPARISON: None. INDICATIONS: I80.02 Phlebitis of superficial veins of lt lower extremity TECHNIQUE: Lower extremity freeman scale and Duplex Doppler evaluation of the deep venous system from the inguinal ligament through the calf veins. FINDINGS: REGION: Left lower extremity. THROMBI: Negative for DVT. Heat induced thrombus visualized 2.4cm from the SFJ. The heat induced thrombus extends from groin to distal calf. COMPRESSIBILITY: Non-compressible segments corresponding to thrombus FLOW: Normal waveform and antegrade flow between 5 and 20 cm/s. CONCLUSION: Post ablation occlusion of the left great saphenous vein with heat induced thrombus 2.4 cm from the saphenofemoral junction and patent appearance of the epigastric vein Dictated by: Gomez Sher MD on 04/23/2023 at 08:07 Approved by: Gomez Sher MD on 04/23/2023 at 08:07
--- OUTSIDE RECORDS SUMMARY | 2023-04-23 07:50 | XMS_ITS | CCD ---
Author Name Unknown Address [address] [place] [address] Organization [facility] Care Team Providers [facility] Assistant Name Role Phone Christopher Wells Unavailable Unavailable [...] Unavailable DO Christopher Wells Primary Care Provider [phone] MD Miguel Membreno Attending Provider [phone] Christopher Wells Primary Care Unavailable Jairo, Dr. Fariha Norwood Attending Carolina vailable DO Christopher Wells Primary Care Provider MD Miguel Membreno Attending Provider BINU Barahona Attending Provider Christopher Wells DO Primary Care Provider FARIHA GUIDRY Attending Unavailable CHRISTOPHER WELLS Primary Care Unavailable DO Christopher Wells Primary Care Provider MD Miguel Membreno Attending Provider Russell, Christopher A Primary Care Unavailable Renetta [...] Hajdari, Astrit H Attending Unavailable Dolce, Denton Gomze Attending Unavailable Dolce, Denton Gomez Attending Unavailable Dolce, Denton Gomez Attending Unavailable Dolce, Denton Gomez Attending Unavailable Dolce, Denton Gomez Attending Unavailable Dolce, Denton Jason Attending Unavailable Dolce, Denton Jason Referring Unavailable Carolina, Catrachito D Referring Unavailable Carolina, Catrachito Gomez Attending Unavailable Carolina, Catrachito D Admitting Unavailable KAPLE, Christopher A [...] Cerda Admitting Unavailable Gary Cerda Attending Unavailable Carolina, Catrachito D Referring Unavailable KAPLE, Christopher A Attending Unavailable KAPLE, Christopher A Admitting Unavailable KAPLE, Christopher A Referring Unavailable Carolina, Catrachito D Referring Unavailable Carolina, Catrachito D Attending Unavailable Carolina, Catrachito D Admitting Unavailable Osmin, Linda A [...] Drug Allergy 023 Unknown (qualifier value), Diarrhea [facility] 250 DO Work Phone: (20 sources) hydroCHLOROthiazide; Translations: [hydroCHLOROthiazide CAPS] Drug Allergy 023 Diarrhea [facility] 250 DO Work Phone: (20 sources) hydroCHLOROthiazide / Spironolactone; Translations: [Aldactazide] Drug Allergy 023 Weal (disorder), Diarrhea [facility] 250 DO Work Phone: (20 sources) Lisinopril; Translations: [Zestril] Drug Allergy 023 Diarrhea (finding), Diarrhea [facility] 250 DO Work Phone: (20 sources) metFORMIN; Translations: [Glucophage] Drug Allergy 023 [facility] Work Phone: (20 sources) valsartan; Translations: [Diovan] Drug Allergy 023 Unknown (qualifier value), Diarrhea [facility] 250 DO Work Phone: (20 sources) hydroCHLOROthiazide / Lisinopril; Translations: [hydrochlorothiazide-l isinopril] Drug Allergy Diarrhea (finding) [facility] (20 sources) Terazosin; Translations: [terazosin] Drug Allergy Unknown, Unknown Reaction [facility] (9 sources) metFORMIN Drug Allergy Unknown Complexa Other (7 sources) Doxazosin; Translations: [DOXAZOSIN] Drug Allergy Unknown Reaction [facility] (6 sources) hydroCHLOROthiazide; Translations: [HYDROCHLOROTHIAZIDE] Drug Allergy Unknown Reaction, Diarrhea [facility] (6 sources) Lisinopril; Translations: [LISINOPRIL] Drug Allergy Unknown Reaction [facility] (6 sources) metFORMIN; Translations: [METFORMIN] Drug Allergy Unknown Reaction, Diarrhea [facility] (5 sources) pioglitazone; Translations: [pioglitazone] Drug Allergy Unknown Reaction [facility] (5 sources) Spironolactone; Translations: [spironolactone] Drug Allergy Unknown Reaction, Hives [facility] (6 sources) valsartan; Translations: [VALSARTAN] Drug Allergy Unknown Reaction [facility] (1 source) SPIRONOLACTON-HYDROCHL OROTHIAZ; Translations: [SPIRONOLACTON-HYDROCH LOROTHIAZ] Propensity to adverse reactions to drug (disorder) [address] [place] [address] Repository (1 source) Terazosin Drug Allergy 023 [facility] Repository (1 source) Lisinopril; Translations: [Prinivil] Drug Allergy [facility] Repository Medications Current Medications Medication Drug [...] Wheezing, 8.5 gm, Refill(s) 0, [id number], 165, cm, 04/10/23 9:26:00 EST, Height/Length Dosing, [...] 90 tab(s), Refills(s) 3, [facility]: [facility] #[id number], 166, cm, 10/28/21 9:59:00 EDT, Height/Length Dosing, [...] 6 tab(s), Refills(s) 0, [facility]: [facility] #[id number], 165, cm, 04/10/23 9:26:00 EST, Height/Length Dosing, [...] 90 tab(s), Refills(s) 1, [facility]: [facility] #[id number], 165, cm, 09/10/22 8:16:00 EDT, Height/Length Dosing, 97.4, kg, 09/10/22 8:16:00 EDT, Weight Dosing Start Date: 10/27/22 Status: Ordered cilostazol 50 mg oral tablet (10 sources) Phosphodiesterase 3 Inhibitor Start: 10-08-2021 take 1 tablet by mouth twice daily Pletal 50 mg oral tablet 50 mg = 1 tab(s), Oral, BID, # 60 tab(s), Refills(s) 5, [facility]: [facility] #[id number], 165, cm, 09/24/21 8:39:00 EDT, Height/Length Dosing, [...] 20 cap(s), Refills(s) 1, [facility]: [facility] #[id number], 165, cm, 12/18/22 8:28:00 EDT, Height/Length Dosing, [...] 5 EA, Refills(s) 11, [facility]: [facility] #[id number], 165, cm, 06/11/22 9:10:00 EDT, Height/Length Dosing, 97.6, kg, 06/11/22 9:10:00 EDT, Weight Dosing Start Date: 08/22/22 Status: Ordered Start: 08-22-2022 inject 30 [IU] by griffin bcutaneous injection twice daily Tresiba FlexTouch 100 units/mL subcutaneous solution 30 unit(s), SubCutaneous, BID, Dx E11.65, # 5 EA, Refills(s) 11, [facility]: [facility] #[id number], 165, cm, 06/11/22 9:10:00 EDT, Height/Length Dosing, [...] # 5 EA, Refills(s) 11, [facility], 166, cm, 05/10/21 8:27:00 EST, [...] 0.4 MG Sublingual Active polyethylene glycol 3350 364339 mg / potassium chloride 1480 mg / sodium bicarbonate 5720 mg / sodium chloride 62879 mg powder for oral solution (1 source) Osmotic Laxative Start: 05-05-2022 NuLYTELY Sara ry oral powder for reconstitution See Instructions, 1 EA, Refill(s) 0, Prior to colonoscopy., [facility] #[id number], 165, cm, 05/05/22 13:40:00 EST, Height/Length Dosing, [...] 21 tab(s), Refills(s) 0, Pharmacy: [facility] #[id number], 165, cm, 04/10/23 9:26:00 EST, Height/Length Dosing, [...] 05, 2018 11:00pm Has been instructed by [facility] to stop 2 days before heart cath Start: 08-06-2018 take 20 mg by mouth once daily Rivaroxaban Active 20 MG PO Every evening August 06, 2018 12:00am Has been instructed by [facility] to stop 2 days before heart cath [...] capsule Indications: Mixed hyperlipidemia , Atherosclerosis of seneca-cayuga coronary artery of seneca-cayuga heart without angina pectoris TAKE 1 CAPSULE BY MOUTH TWICE A DAY 180 capsule 3 01/19/2023 Active Start: 04-07-2022 End: 02-18-2023 Coenzyme Q10 Discontinued PO Daily April 07, 2022 12:00am February 18, 2023 9:26am Start: 11-12-2021 take 1 capsule by [facility] twice daily CoQ10 100 MG Oral [...] 90 cap(s), Refills(s) 3, [facility]: [facility] #[id number], 165, cm, 05/21/22 12:25:00 EST, Height/Length Dosing, 95.2, kg, 05/21/22 12:25:00 EST, Weight Dosing Start Date: 05/26/22 Status: Ordered Start: 04-17-2021 take 1 capsule by [facility] once daily potassium chloride 10 mEq [...] sources) Coronary atherosclerosis; Translations: [Coronary atherosclerosis of seneca-cayuga coronary artery] Onset: 09-18-19 23 09-11-2020 Chronic Coronary atherosclerosis and other heart disease (16 sources) Past history of procedure; Translations: [Percutaneous transluminal coronary angioplasty status] Onset: 01-10-2002-12-2023 Episodic Coronary atherosclerosis and other heart disease (3 sources) Coronary atherosclerosis and other heart disease; Translations: [Atherosclerosis of [place] arteries of left leg with ulceration of [...] limb due to atherosclerosis; Translations: [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, left leg] [...] medications] Episodic Other aftercare (1 source) Other bed bug exterminator (current) drug therapy; Translations: [Other bed bug exterminator (current) drug therapy] Onset: 09-18-19 Episodic Other aftercare (1 source) Long-term current use of drug therapy; Translations: [Other bed bug exterminator (current) drug therapy] Onset: 01-27-20 Episodic Other aftercare (1 source) Long-term current use of anticoagulant; Translations: [termite treater helper (current) use of anticoagulants] Onset: 01-27-20 Episodic Other aftercare (2 sources) Long-term current use of insulin; Translations: [termite treater helper (current) use of insulin] Onset: 01-27-20 Episodic [...] Consent for Treatmenton 03-17 Consent for Treatment [id number]#1.00T IFF Normal [facility] Discharge Instructionson Discharge Instructions [id number]#1.00 TIFF Normal [facility] ED Clinical Summaryon 2023 ED Clinical Summary (Inserted Image. Carolina ble to display) [place] [id number] ED Clinical Summary Person Information Name: EVON CORCORAN Laura/[facility] Age: 72 Years : 1950 Sex: Female Language: Samoan PCP: Christopher WELLS DO, FAAFP Marital Status: [...] 04/10/2023 11:23:38 04/10/2023 11:23:38 04/10/2023 11:23:38 ADDRESS: [address] [place] [id number] [facility] DOC NOTES: MEDICAL INFORMATION: Prescriptions Given: New Medications [facility] #[id number], [address] [place], [place] [id number], [phone] albuterol (Albuterol (Eqv-ProAir HFA) 90 mcg/inh inhalation [...] With: Address: When: [address], [place] [address] Business (1) In 3 days 04/13/2023 DIAGNOSIS: Bronchitis Normal [facility] ED Note-Physicianon 04-10-19 ED Note-Physician Basic Information [...] No known sick contacts. She is taking dkop-oaq-zbhducb cough and cold medications. Review of Systems [...] Wheezing, 8.5 gm, Refill(s) 0, [facility] #[id number], 165, cm, 04/10/23 9:26:00 EST, Height/Length Dosing, 96.9, kg, 04/10/23 9:26:00 EST, Weight Dosing azithromycin, = 1 packet(s), Oral, As Directed, as directed on package labeling, X 5 day(s), # 6 tab(s), Refills(s) 0, Pharmacy: [facility] #[id number], 165, cm, 04/10/23 9:26:00 EST, Height/Length Dosing, 96.9, kg, 04/10/23 9:26:00 EST, Weight Dosing predniSONE, 60 mg = 3 tab(s), Oral, Daily, X 7 day(s), # 21 tab(s), Refills(s) 0, Pharmacy: [facility] #[id number], 165, cm, 04/10/23 9:26:00 EST, Height/Length Dosing, [...] WELLS In 3 days 04/13/2023 EST [address], [facility] [place] [address]- [facility] (1) Additional Instructions: Patient Education Acute Bronchitis, Adult Attestation Patient seen and evaluated by the physician financial legal assistant. Attending physician was present in the emergency department and supervised care. This visit was performed by both the physician and an APC. I performed all aspects of the MDM as documented. This report was transcribed using voice recognition software. Every effort was made to ensure accuracy, however, inadvertently computerized plastic cnc machine operator mistakes may be present. Appropriate healthcare PPE was used in evaluating this patient. The patient was placed in a mask. The healthcare provider was wearing mask, gloves, and utilizing proper hand hygiene. All equipment was properly cleansed. Problem List/Past Medical History Ongoing 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 Chronic renal impairment, stage 3a Claudication [...] nonproliferative diabetic (more content not included)... Normal [facility] Comment on above: Result Comment: Elec [...] Follow these instructions at home: ? Take ojft-oth-venrzxv and prescription medicines only as told by [...] and water are not available, use hand aviation all source intelligence. ? Avoid contact with people who have [...] is easier to cough up. ? Take nuay-vrx-bamcdkn and prescription medici (more content not included)... Normal [facility] ED Patient Summaryon 024 ED Patient Summary (Inserted Image. Carolina ble to display) [place] [id number] Patient Discharge Instructions Person Information Name: EVON CORCORAN Age: 72 Years Arrival Date: 04/10/2023 09:13:22 Discharge Diagnosis: Bronchitis Primary Care Physician: Christopher WELLS DO, FAAFP Provider Information Primary Provider: Malvin [facility] M.D. Advanced Doctor Of Podiatry:Radhames Suarez PA-C The exam and treatment you received in the Emergency Department were for an urgent problem and are not intended as complete care. It is important that you follow up with a doctor, nurse practitioner, or physician?s financial legal assistant for ongoing care. If your symptoms [...] Follow-up Instructions: With: Address: When: Christopher WELLS [address] [place] [address] [place] [id number] [facility] () In 3 days 04/13/2023 In the event that this physician does not participate in your insurance network, please consult with your insurance company to find a nearby participating provider. Patient Education Materials: Acute Bronchitis, Adult A MESSAGE TO ALL PATIENTS REGARDING OPIOIDS PRESCRIPTION OPIOIDS: WHAT YOU NEED TO KNOW Prescription opioids can be used to help relieve mrdmeeor-ua-hytqml pain and are often prescribed following a [...] be struggling with addiction, tell your health care technician and ask for guidance or call [employer]?S National Helpline at 4-533-310-HELP. v Yobany (more content not included)... Normal [facility] XR Chest 2 Viewson 4 XR Chest [...] MD Transcribed by: KATEY Technologist: JUAN MIGUEL [facility] Consent for Treatmenton Consent for Treatment [id number]#1.00T IFF [facility] Consultation Noteon 03-23-19 24 Consultation Note Patient: [...] 11, Dx: E11.9 Directions: BID, [facility] #[id number], Supply, 165, cm, 06/11/22 9:10:00 EDT, Height/Length Dosing, 97.6, kg, 06/11/22 9:10:00 EDT, Weight Dosing Tresiba FlexTouch 100 units/mL subcutaneous solution: 50 unit(s), SubCutaneous, Daily, Dx E11.65, # 5 EA, Refills(s) 11, [facility]: [facility] #[id number], 165, cm, 06/11/22 9:10:00 EDT, Height/Length Dosing, 97.6, kg, 06/11/22 9:10:00 EDT, Weight Dosing chlorthalidone 25 mg Tab: 25 mg = 1 tab(s), Oral, Bedtime, # 90 tab(s), Refills(s) 1, [facility]: [facility] #[id number], 165, cm, 09/10/22 8:16:00 EDT, Height/Length Dosing, 97.4, kg, 09/10/22 8:16:00 EDT, Weight Dosing potassium chloride 10 mEq Cap-ER: 10 mEq = 1 cap(s), Oral, Daily, # 90 cap(s), Refills(s) 3, [facility]: [facility] #[id number], 165, cm, 05/21/22 12:25:00 EST, Height/Length Dosing, [...] Problems HTN - Hypertension / SNOMED CT 7485095309 / Confirmed Familial hypercholesteremia / SNOMED CT 5239225611 / Confirmed Non-smoker / SNOMED CT 86079995 / Confirmed 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 / SNOMED CT 14923785 / Confirmed History of DVT in adulthood / SNOMED CT 1491454531 / Confirmed Type 2 diabetes mellitus with hypercholesterolemia / SNOMED CT 807250537 / Confirmed linked DM with hypercholesterolemia per outpatient CDI policy. Type 2 diabetes mellitus with stage 3 chronic kidney disease / SNOMED CT 727639486 / Confirmed linked DM with CKD per outpatient CDI policy. Mild nonproliferative diabetic retinopathy of both eyes / SNOMED CT 092811581 / Confirmed noted in 08/21/2019 Diabetic Eye Exam. added per outpatient CDI policy. 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 Normal [facility] Comment on above: Result Comment: Elec tronically Signed By: Dawit BARTH, Mara\.br\Date and Time Signed: 03/23/23 09:07 EST Legal Correspondence Officeo n 03-23-2023 Legal Correspondence Office [id number]#1.00 TIFF Normal [facility] Office/Clinic Note-Physician on 03-23-2023 Office/Clinic Note-Physician [id number]#1.00 TIFF Normal [facility] Patient Correspondenceon Patient Correspondence [id number]#1.00 TIFF Normal [facility] Patient Correspondence [id number]#1.00 TIFF Normal [facility] Patient Correspondence [id number]#1.00 TIFF Normal [facility] Patient Correspondence [id number]#1.00 TIFF Normal [facility] Patient History Officeon Patient History Office [id number]#1.00 TIFF Normal [facility] Family Medicine Office/Clini c Noteon 03-20-2023 Family [...] re: potential procedure: Clinically currently asymptomatic and wul-seba-egpbgmvydnv. Please see Dr. Castro's consultation 2. BMI [...] and exercise. 4. Long-term insulin use (Z79.4: termite treater helper (current) use of insulin) Dr Ssbbagh following. 5. Mild nonproliferative diabetic retinopathy of both eyes (E11.3293: Type 2 diabetes mellitus with mild nonproliferative diabetic retinopathy without macular edema, bilateral) Follow-up with semiconductor processing group leader 6. Type 2 diabetes mellitus with hypercholesterolemia (E11.69: Type 2 diabetes mellitus with other specified complication) Tresiba 50 units SQ every morning with sliding scale per med rec per Dr. Salter. Continue losartan: Sugars improved, surveillance A1c's per Dr. Ruggiero 7. Type 2 diabetes mellitus with stage (more content not included)... Normal [facility] Comment on above: Result Comment: Elec [...] plan? Your health care provider or certified control systems technician can help you make a plan [...] stroke). Where to find more information ? [place] [employer]: www.diabetes.org Summary ? Exercising regularly is important for overall health, especially for people who have diabetes mellitus. ? Exercising has many health benefits. It increases muscle strength and bone density and reduces body fat and stress. It also lowers and controls blood glucose. ? Your health care provider or certified control systems technician can help you make an activity [...] provider. Document Revised: 11/28/2019 Document Reviewed: 11/28/2019 [employer] Patient Education ? 2022 [email or web address]. [facility] Nursing Note - Woundon 03-19 Nursing Note - Wound [id number]#2.00 TIFF [facility] Consultation Noteon 03-07-20 23 Consultation Note [id number]#1.00T IFF [facility] CHEMISTRYOrdered By: Lab ROP User on 03-04-2023 Glucose [Mass/Vol] 78 mg/dL Normal 55 - 99 mg/dL PENDING SALE TO [facility] POC Subsection POC Device SN [id number] Invalid Interpretation Code [facility] POC Subsection POC Username MACIE POTTS Invalid Interpretation Code [facility] POC Subsection Sodium [Moles/Vol] 049351096 mmol/L Invalid Interpretation Code [facility] POC Subsection Capillary Glucose POCon 02-14 Glucose [Mass/Vol] 78 mg/dL Normal 55-99 [facility] Comment on above: Performed By: #### 2 [id number] #### [facility] Laboratory [address] [place] [address] Consent for Procedure/Surger yon 03-04-2023 Consent for Procedure/Surgery [id number]#1.00 TIFF [facility] Consent for Treatmenton 02-14 Consent for Treatment [id number]#1.00T IFF [facility] Discharge Instructionson Discharge Instructions [id number]#1.00 TIFF Normal [facility] Insurance Correspondenceon 1 05-05-2022 Insurance Correspondence [id number]#1.00 TIFF Normal [facility] IntraOperative Documentson 1 05-05-2022 IntraOperative Documents [id number]#1.00 TIFF Normal [facility] Main OR Intraoperative Recor don 03-04-2023 Main OR Intraoperative Record IntraOp Document Type FTPM Summary Primary Physician: Nicola Tapia DO Finalized Date/Time: 03/04/23 09:06:01 Pt. Name: EVON CORCORAN Brent Veras/Sex: 1950 Female Med Rec #: [id number] Physician: Nicola Tapia DO Financial #: [id number] Pt. Type: P Room/Bed: / Admit/Disch: 03/04/23 [...] Leanne Montenegro Role Performed Surgeon - Primary Personal Lines Sales Rep - Primary Scrub - Primary Time In 03/04/23 09:01:00 03/04/23 09:01:00 03/04/23 09:01:00 Time Out 03/04/23 09:06:00 03/04/23 09:06:00 03/04/23 09:06:00 Procedure HIP INJECTION(Left) HIP INJECTION(Left) HIP INJECTION(Left) Comments Last Modified By: Crow ECHAVARRIA, Estrellita Maria RN, Estrellita Ryder RN 03/04/23 09:05:56 03/04/23 09:05:56 03/04/23 09:05:56 Entry 4 Case Attendee Ervin Mckeon Role Performed Rn Review Time In 03/04/23 09:01:00 Time Out 03/04/23 [...] and tissue Entry 1 Skin Integrity Intact, [place], Warm, and Skin Abnormality No Dry Outcomes [...] injury related (more content not included)... Normal [facility] Main OR Preoperative Recordo n 03-04-2023 Main OR Preoperative Record Holding Area Document Type FTPM Summary Primary Physician: Nicola Tapia DO Finalized Date/Time: 03/04/23 08:19:34 Pt. Name: EVON CORCORAN/Sex: 1950 Female Med Rec #: [id number] Physician: Nicola Tapia DO Financial #: [id number] Pt. Type: P Room/Bed: / Admit/Disch: 03/04/23 [...] Signed By: Macie Potts RN 03/04/23 08:19 [facility] Consent for Treatmenton 02-13 Consent for Treatment [id number]#1.00T IFF Normal [facility] Multi-Wound Charton 03-03-20 Multi-Wound Chart [id number]#1.00 TIFF Normal [facility] Nursing Assessment - Woundon 03-03-2023 Nursing Assessment - Wound [id number]#1.00 TIFF Normal [facility] Physician Orderon 03-03-2023 Physician Order [id number]#1.00 TIFF Normal [facility] Progress Note - Woundon 02-13 Progress Note - Wound [id number]#1.00 TIFF [facility] Correspondence - Woundon Correspondence - Wound [id number]#1.00 TIFF [facility] Consent for Procedure/Surger yon 02-24-2023 Consent for Procedure/Surgery [id number]#1.0 0TIFF [facility] Consent for Treatmenton 02-13 Consent for Treatment [id number]#1.00T IFF [facility] Multi-Wound Charton 02-25-20 Multi-Wound Chart [id number]#1.00 TIFF [facility] Nursing Assessment - Woundon 02-24-2023 Nursing Assessment - Wound [id number]#1.00 TIFF [facility] Nursing Note - Woundon 02-24 Nursing Note - Wound [id number]#1.00 TIFF [facility] Physician Orderon 02-24-2023 Physician Order [id number]#1.00 TIFF [facility] Procedure - Woundon 02-25-20 Procedure - Wound [id number]#1.00 TIFF [facility] Progress Note - Woundon 02-13 Progress Note - Wound [id number]#1.00 TIFF [facility] Retail - Clinical Noteon Retail - Clinical Note [id number]#1.00T IFF [facility] US venous mapping BI loweron 02-19-2023 US venous mapping BI lower [place] [facility] Main [place] [address] [place] [address] Ultrasound Report Signed Patient: Evon Corcoran MR#: [id number] : 1950 Acct:[id number] Age/Sex: 72 / F ADM Date: 02/18/23 Loc: IR Room: Type: [facility] Attending Dr: Miguel Membreno [...] Miguel Membreno M.D.02/19/2023 1:30 PM Dictation Location: [place] [address] Tech: Isabell Duarte Transcribed By: RICH 02/19/23 1330 Dictated By: Miguel Membreno MD 02/19/23 1327 Signed By: 02/19/23 1330 Normal [facility] Blood Urea Nitrogenon 2022 Urea nitrogen [Mass/Vol] 25 mg/dL Normal 7-25 [facility] Comment on above: Performed By: #### C REAT, BUN #### [facility] [address] [place] [id number] [place] Creatinineon 02-18-2023 Creatinine [Mass/Vol] 1.18 mg/dL Normal 0.60-1.20 [facility] Comment on above: Performed By: #### C REAT, BUN #### [facility] [address] [place] [address] [place] Creatinine Clr Calc Pharmacy 49.07 Normal [facility] Comment on above: Result Comment: PERF ORMED BY: [place] [address] PATHOLOGIST AIR TWISTER WINDER AIRAM ROMEO M.D. Performed By: #### C REAT, BUN #### [facility] [address] [place] [address] [place] GFR/1.73 sq M.predicted MDRD (S/P/Bld) [Vol rate/Area] 48.770 mL/min/{1.73_m2} Normal [facility] Comment on above: Performed By: #### C REAT, BUN #### [facility] [address] [place] [address] [place] Creatinine [Mass/volume] in Serum or PlasmaOrdered By: Miguel Membreno on 02-18-2023 Creatinine [Mass/Vol] 1.18 mg/dL 0.60-1.20 [facility] Lab Reportson 02-18-2023 Lab Reports [id number]#1.00T IFF Normal [facility] No Panel InformationOrdered By: Miguel Membreno on 02-18-2023 Estimated GFR (CKD-EPI) 48.770 mL/Min [facility] Creatinine Clearance (Chem 49.07 [facility] Operative Reporton Operative Report [id number] 204 [id number]#1.00T IFF Normal [facility] Retail - Clinical Noteon Retail - Clinical Note [id number]#1.00T IFF Normal [facility] Retail - Clinical Note [id number]#1.00T IFF Normal [facility] Urea nitrogen [Mass/volume] in Serum or PlasmaOrdered By: Miguel Membreno on 02-18-2023 Urea nitrogen [Mass/Vol] 25 mg/dL 10-07 [facility] Insurance Correspondenceon 1 04-20-2022 Insurance Correspondence [id number]#1.00 TIFF Normal [facility] Physician Orderon 02-17-2023 Physician Order [id number]#1.00 TIFF Normal [facility] CHEMISTRYOrdered By: Lab ROP User on 02-16-2023 Glucose [Mass/Vol] 311 mg/dL High 55 - 99 mg/dL FT C POC Subsection POC Device SN [id number] Invalid Interpretation Code [facility] POC Subsection POC Username RONI CHOWDHURY Invalid Interpretation Code [facility] POC Subsection Sodium [Moles/Vol] 353604294 mmol/L Invalid Interpretation Code [facility] POC Subsection Capillary Glucose POCon Glucose [Mass/Vol] 311 mg/dL High 55-99 [facility] Comment on above: Performed By: #### 2 [id number] #### [facility] Laboratory [address] [place] [address] Consent for Treatmenton Consent for Treatment [id number]#1.00T IFF [facility] Consent for Treatment [id number]#1.00T IFF [facility] Main OR Preoperative Recordo n 02-16-2023 Main OR Preoperative Record Holding Area Document Type [facility] Summary Primary Physician: Gary Cerda MD Finalized Date/Time: 02/16/23 13:36:16 Pt. Name: YOKASTA CORCORANLAW Veras/Sex: 1950 Female Med Rec #: [id number] Physician: Gary Cerda MD Financial #: [id number] Pt. Type: P Room/Bed: / Admit/Disch: 02/16/23 [...] 13:19 Bertha Chowdhury RN 02/16/23 13:36 Normal [facility] Multi-Wound Charton 02-17-20 Multi-Wound Chart [id number] 201 [id number]#1.00 TIFF Normal [facility] Nursing Assessment - Woundon 02-16-2023 Nursing Assessment - Wound [id number]#1.00 TIFF Normal [facility] Nursing Note - Woundon 02-16 Nursing Note - Wound [id number]#1.00 TIFF Normal [facility] Patient Correspondenceon Patient Correspondence [id number]#1.00T IFF Normal [facility] Consent for Procedure/Surger yon 02-10-2023 Consent for Procedure/Surgery [id number]#1.00 TIFF Normal [facility] Consent for Treatmenton 01-15 Consent for Treatment [id number]#1.00T IFF Normal [facility] Multi-Wound Charton 02-11-20 Multi-Wound Chart [id number] 102 [id number]#1.00 TIFF Normal [facility] Nursing Assessment - Woundon 02-10-2023 Nursing Assessment - Wound [id number]#1.00 TIFF Normal [facility] Nursing Note - Woundon 02-10 Nursing Note - Wound [id number]#1.00 TIFF Normal [facility] Physician Orderon 02-10-2023 Physician Order [id number] 102 [id number]#1.00 TIFF Normal [facility] Procedure - Woundon 02-11-20 Procedure - Wound [id number] 102 [id number]#1.00 TIFF Normal [facility] Progress Note - Woundon 01-15 Progress Note - Wound [id number]#1.00 TIFF Normal [facility] Insurance Correspondenceon 04-05-2022 Insurance Correspondence [id number]#1.00 TIFF Normal [facility] Insurance Correspondenceon 04-04-2022 Insurance Correspondence [id number]#1.00 TIFF [facility] Patient Letter [facility] January 29, 2023 EVON CORCORAN [address] [place] [address] EVON CORCORAN L 1950 We are pleased [...] in the following areas: ? Assign a Director Pediatric who will work with you to help [...] [facility]Sheila RN Chronic Director Pediatric [phone] opt. #2 [facility] Consent for Procedure/Surger yon 01-27-2023 Consent for Procedure/Surgery [id number]#1.00 TIFF [facility] Consent for Treatmenton 01-14 Consent for Treatment [id number]#1.00T IFF [facility] Multi-Wound Charton 01-28-20 23 Multi-Wound Chart [id number] 102 [id number]#1.00 TIFF [facility] Nursing Assessment - Woundon 01-27-2023 Nursing Assessment - Wound [id number]#1.00 TIFF [facility] Nursing Note - Woundon 01-27 Nursing Note - Wound [id number]#1.00 TIFF [facility] Physician Orderon 01-27-2023 Physician Order [id number] 102 [id number]#1.00 TIFF Normal [facility] Procedure - Woundon 01-28-20 Procedure - Wound [id number] 102 [id number]#1.00 TIFF Normal [facility] Progress Note - Woundon 01-14 Progress Note - Wound [id number]#1.00 TIFF Normal [facility] Ambulatory Visit Summaryon 03-28-2022 Ambulatory Visit Summary [...] With: Denton Mares DPM Where: [facility] [place] Thursday 9:45 AM EST With: Where: [facility] Thursday 8:45 AM EST With: Gary Cerda MD Where: [facility] 2022 8:00 AM EST With: Linda Solorio CNP Where: [facility] Invalid Interpretation Code [address] [place] [address] \.br\ Thursday 8:00 AM EST \.br\ With:\.br\ Where: [facility] Family Medicine Office/Clini c Noteon 01-26-2023 [...] of clutter to prevent tripping and/or falling. [place] Advance Directives reviewed. Documents remain at home, [...] Labs were ordered, to be completed with [facility]. Mammogram and DEXA scan up to date, [...] as directed. 3. Long-term insulin use (Z79.4: alf (current) use of insulin) Patient voices understanding with proper use of insulin dosage. Follows up with labs, DM supplies and dosage adjustments as needed. Reviewed available sites that can be used to administer Insulin, patient voices understanding. Will continue as directed. 4. Chronic renal impairment, stage 3a (N18.31: Chronic kidney disease, stage 3a) Follows with Engineering Technologist, Dr. Núñez. Encouraged with avoiding NSAID's. Healthy Kidney Nutritional education material provided. Goals to keep blood sugars and blood pressure under better control to reduce cardiovascular risk factors. Medications and blood work monitored with visits. Continues taking statin medication daily. 5. On statin therapy (Z79.899: Other bed bug exterminator (current) drug therapy) Taking Atorvastatin daily, [...] with labs as directed. 6. Anticoagulated (Z79.01: termite treater helper (current) use of anticoagulants) Taking Xarelto and [...] of Hepatitis C for people born between 8742-5252. Hand (more content not included)... Normal [facility] Comment on above: Result Comment: Elec tronically Signed By: Christopher WELLS DO, FAAFP\.br\Date and Time Signed: 01/26/23 17:15 EST\.br\Electronically Co-Signed By: Lesly West LPN\.br\Date and Time Co-Signed: 01/26/23 09:21 EST Nursing Assessment - Woundon 01-26-2023 Nursing Assessment - Wound [id number]#2.00 TIFF [facility] Nursing Note - [place]oundon 01-26 Nursing Note - Wound [id number]#2.00 TIFF [facility] Patient Educationon 01-27-20 Patient Education Caregiving Fall [...] Keep items that you use often in rxuy-ny-ooxnt places. Lower the shelves around your home [...] the way. ? Do not use floor zimbabwean or wax that makes floors slippery. What [...] Control and Prevention, [place]AD[place]: www.cdc.gov ? National [place] on Aging: www.[place].nih.gov Contact a doctor if: [...] provider. Document Revised: 12/02/2021 Document Reviewed: 10/03/2020 [employer] Patient Education ? 2022 [email or web address]. Endocrinology Diabetes Melli (more content not included)... [facility] Screenson 01-26-2023 Screens [id number] [id number]#1.00TI FF [facility] Multi-Wound Charton 01-24-20 23 Multi-Wound Chart [id number] 105 [id number]#1.00 TIFF [facility] Physician Orderon 01-23-2023 Physician Order [id number] 105 [id number]#1.00 TIFF [facility] Consent for Treatmenton Consent for Treatment [id number]#1.00T IFF [facility] Consent for Procedure/Surger yon 01-14-2023 Consent for Procedure/Surgery [id number]#1.00 TIFF [facility] Consent for Procedure/Surgery [id number]#1.00 TIFF [facility] Nursing Assessment - Woundon 01-14-2023 Nursing Assessment - Wound [id number]#1.00 TIFF [facility] Nursing Note - Woundon 01-14 Nursing Note - Wound [id number]#2.00 TIFF [facility] CHEMISTRYOrdered By: Cynthia Serrano se on 01-13-2023 HbA1c (Bld) [Mass fraction] 11.5 % High <=5.9% [facility] ChemAutoSS Consent for Treatmenton 12-16 Consent for Treatment [id number]#1.00T IFF Normal [facility] Consent to Photographon 12-16 Consent to Photograph [id number]#1.00T IFF Normal [facility] Correspondence - Woundon Correspondence - Wound [id number]#1.00T IFF Normal [facility] Correspondence - Wound [id number]#1.00T IFF Normal [facility] Correspondence - Wound [id number]#1.00T IFF Normal [facility] [id number] 01-13-2023 HbA1c (Bld) [Mass fraction] 11.5 % High <=5.9 [facility] Comment on above: Performed By: #### 2 [id number] #### [facility] Laboratory [address] [place] [address] Multi-Wound Charton 01-14-20 Multi-Wound Chart [id number] 002 [id number]#1.00 TIFF Normal [facility] Nursing Assessment - Woundon 01-13-2023 Nursing Assessment - Wound [id number]#1.00 TIFF Normal [facility] Outside Recordson 01-13-2023 Outside Records [id number] 231 [id number]#1.00T IFF Normal [facility] Patient Correspondenceon Patient Correspondence [id number]#1.00 TIFF Normal [facility] Physician Orderon 01-13-2023 Physician Order [id number] 002 [id number]#1.00 TIFF Normal [facility] Procedure - Woundon 01-14-20 Procedure - Wound [id number] 002 [id number]#1.00 TIFF Normal [facility] Progress Note - Woundon - Progress Note - Wound [id number]#1.00 TIFF Normal [facility] Insurance Correspondenceon 1 Insurance Correspondence [id number]#1.0 0TIFF [facility] Radiology 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 Mechanic yon 01-07-2023 Radiology Outside Office Copy [id number]#1.00 TIFF [facility] Consent for Treatmenton 12-15 Consent for Treatment [id number]#1.00T IFF [facility] Consultation Noteon 01-07-20 Consultation Note Patient: EVON [...] red blood per rectum) / SNOMED CT 061230496 / Confirmed Breast cancer screening by mammogram / SNOMED CT 407135838 / Confirmed 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 / SNOMED CT 92390285 / Confirmed Change in bowel habits / SNOMED CT 934358478 / Confirmed Chronic renal impairment, stage 3a / SNOMED CT 8657970482 / Confirmed Claudication of both lower extremities / SNOMED CT 025337069 / Confirmed Colon polyp / SNOMED CT 124033414 / Confirmed Degenerative localized arthritis of hip / SNOMED CT 644463727 / Confirmed 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 / SNOMED CT 662356426 / Confirmed Diabetes / SNOMED CT 119293755 / Confirmed Diarrhea / SNOMED CT 214502825 / Confirmed Enthesopathy of left hip region / SNOMED CT 98127490 / Confirmed Familial hypercholesteremia / SNOMED CT 8236502378 / Confirmed Hemorrhoids / SNOMED CT 044555013 / Confirmed History of colon polyps / SNOMED CT 3722688790 / Confirmed History of DVT in adulthood / SNOMED CT 1420581183 / Confirmed HTN - Hypertension / SNOMED CT 7497293512 / Confirmed Hypertensive heart and chronic kidney disease without heart failure, with stage 1 through stage 4 chronic kidney disease, or unspecified chronic kidney disease / SNOMED CT 1436194613 / Confirmed noted in 12/10/2021 Nephrology Consult Note page 3. added per outpatient CDI policy. Long-term insulin use / SNOMED CT 7537501650 / Confirmed Current Medication List includes Tresiba. added per outpatient CDI policy. Lumbar disc herniation / SNOMED CT 066513576 / Confirmed Lumbar stenosis / SNOMED CT 38645708 / Confirmed Mild nonproliferative diabetic retinopathy of both eyes / SNOMED CT 415434966 / Confirmed noted in 08/21/2019 Diabetic Eye Exam. added per outpatient CDI policy. Morbid obesity / SNOMED CT 325777577 / Confirmed Non-smoker / SNOMED CT 85560417 / Confirmed Primary ovarian failure / SNOMED CT 707396400 / Confirmed Sleep apnea / SNOMED CT 663856172 / Confirmed Type 2 diabetes mellitus with hypercholesterolemia / SNOMED CT 527377335 / Confirmed linked DM with hypercholesterolemia per outpatient CDI policy. Type 2 diabetes mellitus with stage 3 chronic kidney disease / SNOMED CT 677706923 / Confirmed linked DM with CKD (more content not included)... Normal [facility] Comment on above: Result Comment: Elec tronically Signed By: Prashant PIMENTEL, Gary Gomez\.br\Date and Time Signed: 01/06/23 09:13 EDT HIPAA Forms Officeon 023 HIPAA Forms Office [id number] [facility] [id number]#1.00 TIFF Normal [facility] Legal Correspondence Officeo n 01-06-2023 Legal Correspondence Office [id number]#1.00 TIFF Normal [facility] Legal Correspondence Office [id number]#1.00 TIFF Normal [facility] Office/Clinic Note-Physician on 01-06-2023 Office/Clinic Note-Physician [id number]#1.00 TIFF Normal [facility] Patient Correspondenceon Patient Correspondence [id number]#1.00 TIFF Normal [facility] Patient Correspondence [id number]#1.00 TIFF Normal [facility] Patient Correspondence [id number]#1.00 TIFF Normal [facility] Patient Correspondence [id number]#1.00 TIFF Normal [facility] Patient Correspondence [id number]#1.00 TIFF Normal [facility] Patient History Officeon Patient History Office [id number]#1.00 TIFF Normal [facility] Radiology 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 Mechanic yon 01-06-2023 Radiology Outside Office Copy [id number]#1.00 TIFF Normal [facility] Consent for Treatmenton 12-14 Consent for Treatment [id number]#1.00T IFF Normal [facility] MRI Pelvis (Bony) w/o contra ston [...] MD Transcribed by: KATEY Technologist: NUBIA Normal [facility] RAD - MRI Screening Formon 1 RAD - MRI Screening Form [id number]#1.00 TIFF Normal [facility] Physician Orderon 12-24-2022 Physician Order [id number] 004 [id number]#1.00T IFF Normal [facility] Physician Order [id number]#1.00T IFF Normal [facility] Outside Records Officeon Outside Records Office [id number]#1.00 TIFF Normal [facility] Referrals Officeon Referrals Office [id number] 021 [id number]#1.00 TIFF [facility] Consultation Noteon 12-23-19 Consultation Note [id number] 002 [id number]#1.00T IFF [facility] Physician Orderon 12-22-2022 Physician Order [id number] 010 [id number]#1.00 TIFF [facility] Ambulatory Visit Summaryon 1 Ambulatory Visit Summary EVON CORCORAN :1950 Visit Date:12/18/2022 Ambulatory Visit Instructions Your Diagnosis Enthesopathy of left hip region Hypertensive heart and chronic kidney disease without heart failure, with stage 1 through stage 4 chronic kidney disease, or unspecified chronic kidney disease Long-term insulin use BMI 36.0-36.9,adult Morbid obesity Chronic renal impairment, stage 3a 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 Type 2 diabetes mellitus with hypercholesterolemia [...] Appointments Thursday 8:00 AM EST With: Where: [facility] Normal [address] [place] [address]- \.br\ You Need to Schedule the Following Appointments\.br\ Follow Up with RUSSELL SHEPHERD FAAFP, Christopher Montenegro, CHERISE, PED When: In 3 months\.br\ Where:\.br\ [address]\ [place] [address].br\ \.br\ Medications\.br\ What How Much When Why Instructions\.br\ New doxycycline (doxycycline hyclate 100 mg Cap) 1 Capsules By Mouth 2 times a day Venous stasis ulcer Refills: 1 Pickup at [facility] #[facility]\.br\ Unchanged amlodipine (amLODIPine 5 mg Tab) 1 [...] Mouth Every day\.br\ Pharmacy Information\.br\ [id number]: [address] [place], [place] [id number] [phone]\.br\ Medications and Immunizations Administered\.br\ Not Given\.br\ influenza virus vaccine, inactivated, Patient Refuses\.br\ Allergies\.br\ Aldactazide (Hives)\.br\ Cardura (Unknown)\.br\ Diovan (Unknown)\.br\ Glucophage\.br\ Hytrin\.br\ Prinivil\.br\ Zestril (Diarrhea)\.br\ hydrochlorothiazi de-lisinopril (Diarrhea)\.br\ Problems\.br\ Ongoing - Any problem that you are currently receiving treatment for.\.br\ BRBPR (bright red blood per rectum)\.br\ Breast cancer screening by mammogram\.br\ 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\.br\ Change in bowel habits\.br\ Chronic renal [...] home:\.br\ Medicines\.br\ ? \.br\ Take or apply vkyq-nec-nzasefu and prescription medicines only as told by [...] cannot use soap and water, use hand aviation all source intelligence.\.br\ ? \.br\ Change your bandage as told [...] for help if you feel david [facility] Family Medicine Office/Clini c Deliaon 12-18-2022 Family [...] ER daily. 3. 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 Normal [facility] Comment on above: Result Comment: Elec [...] at home: Medicines ? Take or apply tamd-wiu-xrkmfus and prescription medicines only as told by [...] cannot use soap and water, use hand aviation all source intelligence. ? Change your bandage as told by [...] day for signs of infection. ? Take snzd-nfu-ujjgtue and prescription medicines only as told by your doctor. ? Keep all follow-up visits as told by your doctor. This is important. This information is not intended to replace advice given to you by your health care provider. Make sure you discuss any questions you have with your health care provider. Document Revised: 12/26/2021 Document Reviewed: 12/26/2021 [email or web address] Patient Education ? 2022 [email or web address]. [facility] Consultation Noteon 12-16-19 Consultation Note [id number] 002 [id number]#1.00C D:[address] [facility] MRI Spine Lumbar w/o Contras ton 12-09-2022 [...] by: KATEY Technologist: NUBIA Technical Comments None [facility] Consent for Treatmenton 11-15 Consent for Treatment [id number]#1.00C D:127 [facility] RAD - MRI Screening Formon 0 12-08-2022 RAD - MRI Screening Form [id number]#1.00 CD:127 [facility] Physician Orderon 11-26-2022 Physician Order [id number] [id number]#1.00CD :127 [facility] Physician Order [id number] [id number]#1.00CD :127 [facility] BD Bone Density DEXAon 11-25 BD Bone [...] MD Transcribed by: KATEY Technologist: TRISTAN Gonzalez [facility] MA Mamm Screen w/CAD if perf [...] very important to your health. The current [employer] and National Comprehensive Cancer [...] 2-Benign finding Recommendation: Normal interval follow-up Normal [facility] Consent for Treatmenton 11-14 Consent for Treatment [id number]#1.00C D:127 Normal [facility] Consultation Noteon 11-24-19 Consultation Note [id number]#1.00CD :127 Normal [facility] Consultation Noteon 11-14-19 Consultation Note [id number]#1.00C D:127 Normal [facility] Family Medicine Office/Clini c Noteon 11-06-2022 [...] and some weakness, I take WC to [place] so I walk and do Wheel Chair. Pain stays in the hip. After walking approximately 10 minutes at [place] patient needs to get into wheelchair secondary to the pain in her left hip. Patient reports no poor color no radiation of pain into left thigh and nor leg nor foot. Diabetes is now managed per Dr. Ruggiero, her last A1c at Dr. Ruggiero's office was 8.9 and the 1 prior to that was 13. Dr. Oliveira is her brand designer and she believes she sees him next [...] We will refer to orthopedics here at [facility]. Physical therapy [facility]. Patient defers x-rays and well allow access orthopedics to perform at time of evaluation. Discussed possibility of bursitis and possible injection under fluoroscopy via orthopedics Ordered: [facility] External Ambulatory Referral [facility] Outpatient Physical Therapy Evaluate Patient, Develop a Plan of Care, & Implement Plan (more content not included)... Normal [facility] Comment on above: Result Comment: Elec trojinally [...] these instructions at home: Medicines ? Take rezk-oub-utxisyb and prescription medicines only as told by [...] Reviewed: 02/25/2022 Elsevier Patient Education ? 2022 [employer] Normal [facility] Physician Referralon 023 Physician Referral [id number] CD:127 Normal [facility] US arterial duplex LE LTon 0 11-04-2022 US arterial duplex LE LT [facility] [address] Ultrasound Report Signed Patient: Evon Corcoran MR#: [id number] 844 : 1950 Acct:[id number] Age/Sex: 72 / F ADM Date: 11/04/22 Loc: [facility] Room: Type: [facility] Attending Dr: Renetta Barahona FOOD CONSULTANT-C Ordering Provider: Renetta Barahona APRN Date of [...] MD 11/04/22 1307 Signed By: 11/04/22 1309 [facility] US ankle/arm indiceson 11-03 US ankle/arm indices [facility] [place] [address] Ultrasound Report Signed Patient: Evon Corcoran MR#: [id number] 844 : 1950 Acct:[id number] Age/Sex: 72 / F ADM Date: 11/03/22 Loc: [facility] Room: Type: [facility] Attending Dr: Miguel Membreno MD Ordering Provider: [...] MD 11/03/22 1024 Signed By: 11/03/22 1026 [facility] CHEMISTRYOrdered By: Ryan SYSTEM on 10-31-2022 Albumin [Mass/Vol] 3.4 g/dL Normal 3.3 - 5.0 gm/dL F [facility] Remisol Anion gap [Moles/Vol] 11 mmol/L Normal [...] rate/Area] 43 mL/min/1.73 m2 Low >=59mL/min/1.73 m2 [facility] Chem S Glucose [Mass/Vol] 316 mg/dL High [...] ratio] 22 mg/mg High 10 - 20 [facility] Remisol CHEMISTRYOrdered By: Jeniffer Rosas on 10-31-2022 Albumin Elph (U) [Mass fraction] 8.4 mg/dL Invalid Interpretation Code FT Remisol Creatinine (U) [Mass/Vol] 132.6 mg/dL Invalid Interpretation Code [facility] Remisol U Prot/Creat Ratio 63.30 mg/gm Cr Normal 0.00 - 200.00 mg/gm Cr FT Remisol Consent for Treatmenton 10-14 Consent for Treatment [id number]#1.00C D:127 Normal [facility] Physician Orderon 10-31-2022 Physician Order [id number]#1.00 CD:127 Normal [facility] Renal Panelon 10-31-2022 Albumin [Mass/Vol] 3.4 g/dL Normal 3.3-5.0 [facility] Comment on above: Performed By: #### 1 [id number], [id number] ####[facility] [address] [place] [address] Anion gap [Moles/Vol] 11 mmol/L Normal 6-16 [facility] Comment on above: Performed By: #### 1 [id number], [id number] ####[facility] [address] [place] [address] Calcium [Mass/Vol] 8.4 mg/dL Low 8.9-11.1 [facility] Comment on above: Performed By: #### 1 [id number], [id number] ####[facility] [address] [place] [address] Chloride [Moles/Vol] 104 mmol/L Normal 101-111 [facility] Comment on above: Performed By: #### 1 [id number], [id number] ####[facility] [address] [place] [address] CO2 [Moles/Vol] 27 mmol/L Normal 21-31 [facility] Comment on above: Performed By: #### 1 3834910, [id number] ####[facility] [address] [place] [address] Creatinine [Mass/Vol] 1.3 mg/dL Normal 0.5-1.3 [facility] Comment on above: Performed By: #### 1 1244158, [id number] ####[facility] [address] [place] [address] Glucose [Mass/Vol] 316 mg/dL High 55-199 [facility] Comment on above: Result Comment: If t his glucose result represents a fasting glucose, interpretation should refer to the following reference range: 55-99 mg/dL Performed By: #### 1 [id number], [id number] ####[facility] [address] [place] [address] Phosphate [Mass/Vol] 3.8 mg/dL Normal 1.9-4.6 [facility] Comment on above: Performed By: #### 1 5683847, [id number] ####[facility] [address] [place] [address] Potassium [Moles/Vol] 4.2 mmol/L Normal 3.5-5.3 [facility] Comment on above: Performed By: #### 1 4697679, [id number] ####[facility] [address] [place] [address] Sodium [Moles/Vol] 138 mmol/L Normal 135-145 [facility] Comment on above: Performed By: #### 1 7460717, [id number] ####[facility] [address] [place] [address] Urea nitrogen [Mass/Vol] 28 mg/dL High 5-21 [facility] Comment on above: Performed By: #### 1 8353244, [id number] ####[facility] [address] [place] [address] Urea nitrogen/Creatinine [Mass ratio] 22 No Units High 10-20 [facility] Comment on above: Performed By: #### 1 5573477, [id number] ####[facility] [address] [place] [address] U Protein/Creat Ratioon 10-14 Albumin Elph (U) [Mass fraction] 8.4 mg/dL Invalid Interpretation Code [facility] Comment on above: Result Comment: The reference range and other method performance specifications have not been established for this test; results should be integrated into the clinical context for interpretation. Performed By: #### 1 [id number], [id number] #### [facility] Laboratory [address] [place] [address] Creatinine (U) [Mass/Vol] 132.6 mg/dL Invalid Interpretation Code [facility] Comment on above: Result Comment: The reference range and other method performance specifications have not been established for this test; results should be integrated into the clinical context for interpretation. Performed By: #### 1 [id number], [id number] #### [facility] [address] [place] [address] U Prot/Creat Ratio 63.30 mg/gm Cr Normal .00-200.00 [facility] Comment on above: Performed By: #### 1 4556389, [id number] #### [facility] [address] [place] [address] URINALYSISOrdered By: Rosa Chacon on 10-31-2022 Bacteria [...] AM) Normal Negative [facility] UA Auto SS Chireno.plasma/Lith ium.RBC (Bld) [Mass ratio] 0-3 /HPF Normal [...] AM) Invalid Interpretation Code 1.005 - 1.030 [facility] UA Auto SS UA Spec Desc Clean Catch (10/31/22 7:33 AM) Normal [facility] UA Auto SS Urobilinogen Qn (U) 0.3108336 {Donell'U}/dL Normal 0.0 - 1.0 EU/dL [facility] UA Auto SS WBC Auto Ql (U) 1+ *ABN* (10/31/22 7:33 AM) Invalid Interpretation Code Negative [facility] UA Auto SS WBC LM.HPF (Urine sed) [#/Area] 6-15 /HPF Invalid Interpretation Code 0-5/HPF [facility] UA Auto SS Urinalysison 10-31-2022 Bacteria LM Ql (Urine sed) 1+ /HPF Abnormal Trace [facility] Comment on above: Performed By: #### 1 [id number], [id number] #### [facility] [address] [place] [address] Bilirubin Ql (U) Negative Normal Negative [facility] Comment on above: Performed By: #### 1 8156373, [id number] #### [facility] [address] [place] [address] Clarity (U) CLEAR Normal Clear [facility] Comment on above: Performed By: #### 1 6051315, [id number] #### [facility] [address] [place] [address] Color (U) YELLOW Normal Yellow [facility] Comment on above: Performed By: #### 1 [id number], [id number] #### [facility] [address] [place] [address] Epithelial cells.squamous LM.HPF (Urine sed) [#/Area] 0-2 Normal 0-2 [facility] Comment on above: Performed By: #### 1 4622136, [id number] #### [facility] [address] [place] [address] Glucose Test strip (U) [Mass/Vol] 2+ Abnormal Negative [facility] Comment on above: Performed By: #### 1 4075306, [id number] #### [facility] [address] [place] [address] Hemoglobin Ql (U) Negative Normal Negative [facility] Comment on above: Performed By: #### 1 6710838, [id number] #### [facility] [address] [place] [address] Ketones (U) [Mass/Vol] Negative Normal Negative [facility] Comment on above: Performed By: #### 1 6656764, [id number] #### [facility] [address] [place] [address] Chireno.plasma/Lith ium.RBC (Bld) [Mass ratio] 0-3 Normal 0-3 [facility] Comment on above: Performed By: #### 1 1723861, [id number] #### [facility] [address] [place] [address] Nitrite Ql (U) Negative Normal Negative [facility] Comment on above: Performed By: #### 1 8485415, [id number] #### [facility] [address] [place] [address] pH (U) 6.0 [pH] Invalid Interpretation Code 5.0-9.0 [facility] Comment on above: Performed By: #### 1 1244145, [id number] #### [facility] [address] [place] [address] Protein (U) [Mass/Vol] Negative Normal Negative [facility] Comment on above: Performed By: #### 1 1370663, [id number] #### [facility] [address] [place] [address] Specific gravity (U) [Rel density] 1.025 Invalid Interpretation Code 1.005-1.030 [facility] Comment on above: Performed By: #### 1 3179633, [id number] #### [facility] [address] [place] [address] Type of Urine collection method Clean Catch Normal [facility] Comment on above: Performed By: #### 1 6790374, [id number] #### [facility] [address] [place] [address] Urobilinogen Qn (U) 0.2 {Donell'U}/dL Normal 0.0-1.0 [facility] Comment on above: Performed By: #### 1 7787545, [id number] #### [facility] [address] [place] [address] WBC Auto Ql (U) 1+ Abnormal Negative [facility] Comment on above: Performed By: #### 1 9640958, [id number] #### [facility] [address] [place] [address] WBC LM.HPF (Urine sed) [#/Area] 6-15 Abnormal 0-5 [facility] Comment on above: Performed By: #### 1 7200044, [id number] #### [facility] [address] [place] [address] eGFRon 10-31-2022 GFR/1.73 sq M.predicted among non-blacks MDRD (S/P/Bld) [Vol rate/Area] 43 mL/min/1.73 m2 Low >=59 [facility] Comment on above: Order Comment: Order added by Discern Expert. Result Comment: Drafting Clerk jin kidney disease could be indicated at eGFR's of less than 60 mL/min/1.73m2. Kidney failure is indicated at less than 15 mL/min/1.73m2. Performed By: #### 1 9430519, [id number] ####[facility] [address] [place] [address] RAD - Ultrasound Reporton RAD - Ultrasound Report [id number]#1.00C D:127 Normal [facility] Retail - Clinical Noteon Retail - Clinical Note [id number]#1.00C D:127 Normal [facility] VAS LAB Carotid Artery Dupl ex Ultrasounon 09-17-2022 VAS LAB Carotid Artery Duplex Ultrasoun [address], [address] [facility] [place] [address] Vascular Lab Report Carotid Artery Duplex Ultrasound Patient Name: EVON Mckeon Physician: [id number] Fariha Guidry MD, [facility] Study Date: 09/17/2022 Referring FARIHA GUIDRY Physician: MRN/PID: [id number] PCP: Christopher Wells DO Accession/Order#: [id number] CC Report to: Date of : 1950 Technologist: PRAVEENA Gender: F Technologist 2: Admission Status: Outpatient Location Performed: [facility] Diagnosis/ICD: B18-Tmzvgvnza and giddiness; I73.9-Peripheral vascular disease, unspecified Indication: CAD, PTCA, High Risk Medication Use, Vascular Disease, Diabetes, HTN, Hyperlipidemia, CKD-Stage III, DVT, MORALES, Obesity Procedure/CPT: 45917 Cerebrovascular Carotid Duplex scan complete-64958 CONCLUSIONS: Right Carotid: Findings are consistent with [...] cm/s Right Left ICA/CCA Ratio 1.4 2.0 [id number] Fariha Guidry MD, FACC Final Normal [place] VASC LAB Carotid Artery Dupl ex Ultrasoundon 09-17-2022 US.doppler Carotid arteries -[facility]-Sandu feliz [address] DO Work Phone: [...] (bright red blood per rectum) 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 Change in bowel habits Chronic renal impairment, stage 3a Claudication of both lower extremities Colon polyp Diarrhea Familial hypercholesteremia Hemorrhoids History of colon polyps History of DVT (more content not included)... Normal [facility] Comment on above: Result Comment: Elec [...] Bulgur wheat. Millet. Quinoa. Bran muffins. Popcorn. Thaxton wafer crackers. Meats and other proteins Rothbury beans, kidney beans, and chase beans. Soybeans. [...] Cream cheese. Sour cream. Fats and oils Mclean. Beverages Soft drinks. Other foods Cakes and [...] Document Revised: (more content not included)... Normal [facility] Medication Refillon 08-23-19 Medication Refill [id number]#1.00C D:127 Normal [facility] CBC w/Indiceson 08-01-2022 Erythrocyte distribution width (RBC) [Ratio] 14.0 % Normal 10.9-14.2 [facility] Comment on above: Performed By: #### 1 [id number], [id number] #### [facility] Laboratory [address] [place] [address] Hematocrit (Bld) [Volume fraction] 39.9 % Normal 34.0-46.0 [facility] Comment on above: Performed By: #### 1 3836215, [id number] #### [facility] [address] [place] [address] Hemoglobin (Bld) [Mass/Vol] 12.7 g/dL Normal 12.0-16.0 [facility] Comment on above: Performed By: #### 1 6804842, [id number] #### [facility] [address] [place] [address] MCH (RBC) [Entitic mass] 27.9 pg Normal 27.0-34.0 [facility] Comment on above: Performed By: #### 1 4161892, [id number] #### [facility] [address] [place] [address] MCHC (RBC) [Mass/Vol] 31.8 g/dL Normal 31.4-36.0 [facility] Comment on above: Performed By: #### 1 4773954, [id number] #### [facility] [address] [place] [address] MCV (RBC) [Entitic vol] 87.6 fL Normal 80.0-100.0 [facility] Comment on above: Performed By: #### 1 1329341, [id number] #### [facility] [address] [place] [address] Platelet mean volume (Bld) [Entitic vol] 10.5 fL Normal 6.4-10.8 [facility] Comment on above: Performed By: #### 1 5390973, [id number] #### [facility] [address] [place] [address] Platelets (Bld) [#/Vol] 227.0 E9/L Normal 150.0-500.0 [facility] Comment on above: Performed By: #### 1 9203031, [id number] #### [facility] [address] [place] [address] RBC (Bld) [#/Vol] 4.6 E12/L Normal 4.3-5.9 [facility] Comment on above: Performed By: #### 1 9998885, [id number] #### [facility] [address] [place] [address] WBC corrected for nucl RBC Auto (Bld) [#/Vol] 7.3 E9/L Normal 4.0-11.0 [facility] Comment on above: Performed By: #### 1 3293040, [id number] #### [facility] [address] [place] [address] Consent for Treatmenton 07-14 Consent for Treatment [id number]#1.00C D:127 Normal [facility] Lipid Panelon 08-01-2022 Cholesterol [Mass/Vol] 128 mg/dL Normal 120-200 [facility] Comment on above: Performed By: #### 1 2203706, [id number] #### [facility] [address] [place] [address] Cholesterol in HDL [Mass/Vol] 47 mg/dL Invalid Interpretation Code [facility] Comment on above: Result Comment: HDL > or equal to 60 mg/dL: Low cardiovascular risk HDL < 40 mg/dL : High cardiovascular risk Performed By: #### 1 4311340, [id number] #### [facility] [address] [place] [address] Cholesterol in LDL [Mass/Vol] 59 mg/dL Normal <=129 [facility] Comment on above: Performed By: #### 1 4293070, [id number] #### [facility] [address] [place] [address] Cholesterol in VLDL [Mass/Vol] 27 mg/dL Normal 7-40 [facility] Comment on above: Performed By: #### 1 6385196, [id number] #### [facility] [address] [place] [address] Triglyceride [Mass/Vol] 133 mg/dL Normal <=149 [facility] Comment on above: Performed By: #### 1 3176661, [id number] #### [facility] [address] [place] [address] Physician Orderon 08-01-2022 Physician Order [id number]#1.00 CD:127 [facility] 2022 Reminders - From: Adore Back [...] patient was seen on 06/11/22 by Linda [facility] - Clinical Noteon Retail - Clinical Note [id number]#1.00C D:127 [facility] Summaryon 0 06-11-2022 Ambulatory Visit [...] AM EDT With: Linda Solorio CNP Where: [facility] Normal [facility] Gastroenterology Office/Clin ic Noteon 06-11-2022 Gastroenterology [...] was previ (more content not included)... Normal [facility] Comment on above: Result Comment: Elec tronically Signed By: Linda Solorio CNP\.br\Date and Time Signed: 06/11/22 09:30 EDT Patient Educationon 06-12-19 Patient Education [facility] High-Fiber Diet Fiber, also called dietary fiber, [...] serving. ? Talk with a diet and crop nutrition scientist (dietitian) if you have questions about specific [...] Bulgur wheat. Millet. Quinoa. Bran muffins. Popcorn. Thaxton wafer crackers. Meats and other proteins Rothbury, kidney, and chase beans. Soybeans. Split peas. [...] Cream cheese. Sour cream. Fats and oils Mclean. Beverages Soft drinks. Other foods Cakes and [...] 03/02/2006 Document Revised: 01/04/2018 Document Reviewed: 01/04/2018 [employer] Patient Education ? 2019 [employer] Gastro (more content not included)... Normal [facility] Reminderson 06-11-2022 Reminders - From: Linda Solorio CNP To: Doretha Henry; Sent: 06/11/2022 09:24:04 EDT Show up: 06/11/2022 09:24:00 EDT Subject: Ambulatory Reminder Reminder/Recall Colonoscopy in 2029. [address] benson 05/21/2029 From: Doretha Henry To: [facility] - Reminders/Recalls; Sent: 06/11/2022 12:14:24 EDT ! Show up: 04/16/2029 12:14:00 EST Due Date/Time: 05/14/2029 12:14:00 EST Normal [facility] IntraOperative Documentson 0 05-30-2022 IntraOperative Documents [id number]#1.00C D:127 Normal [facility] Result Letter Officeon 05-30 Result Letter Office May 30, [address] [place] [address] EVON CORCORAN 1950 Below is a summary [...] letter prior to your next due date. [facility] [phone] Normal [facility] Postoperative Documentson Postoperative Documents [id number]#1.00C D:127 Normal [facility] Coding Summary.on 05-26-2022 Coding Summary. CD:[id number] Gh0 bWw+PGhlYWQ+DN2NEPGeL51 jaPEzdE8vN8PKAXqLGkxmZO AHBGtVRlXwlhKnAZ2xsYBvZ XJu IC8+HR5dAHKuPoenyCGnj2V 9xAJ5N50etp3jMTlveIL7MM EpMgZhrhuqy1yedOf4TJkhB mluOyBt DUIawB74DJO6nT48Wq18sGJ ofPCfj0dlxHk3CmSeESHwEZ T2tEolMUgas7JoLSIzG08xk XSid9Y6 JVCjtTaeoLUsDvFrdAQ9uV8 xQQpkjqhll1yjksqyRgm0ip 19mJLmq8S8mOV3B9GkhqL0S GJvbGQg HocsmQIHpY5qmswbk4rkhdt yDcWaUQEyOMa8NKt1AUPzbJ qzOjYvWZ22SBR5XRIyawYwH 2FsLWFs cMfwJhM5o7I6Ue7UB4JJNfs lR1QKRAPMZPepnNL+PC90cj 50Q5UfYghqRde7APJjAQX1d SB6nM1c YONaETyxy3Q5tQJ2R8ExjkT nat5ly0qsRTYoACssC86wdU Bad3D0LSRsrGL9AQVmjDrkS iBzaG93 Oyc+TICwbMqbs3YkZddxm5b gc3semMv4PnklPIRnaxXwgQ bgCDB9h8LpYu5oJVZnrSZ1d TD5bA1y VgHeDwG2YTlvA967QaPiaAL pNgsbJ09qQ9RfqIL+PHRyPj q3CKVlgImlWP5yU8NjTAMgs mctbGVm xJzyJM1aECWltvohRHSahN3 vGUQvS4v6MhOqNgL6ZZdeJ9 InVJVywgftIz22pG4oVxElR hX3JMpp V8PbaoE6REUpgYWlRXwgHPM 9N78vb0P7AQIfDOFjCGL3jA W9bC6lgGbehhxkoHDqfGpqe mVydGlj ZOimZHviM783MYHsySfzUxP vZGluZyBEYXRlOiAgMDMvMT MvMjAyMzwvdGQ+HHWeBTN0j WxlPSAn zZPjYBsbJz8cvCvhdUrxZC5 lNYKcftoxJADhlB7jSIAweV FutWkpZW1lQUBvlcohh259L iAxMHB0 XNCbgAZtR4AvrQ7eJxYnQGO fXRWoS6WojSUlLAilA090LZ zbQvS6LRFcirFgK6YvRZWkm WduOiB0 x2W7Nq3Si7YrapmiW0TpuVQ xLlYjPnubQPa4G3RpOwedeO I+IQ99MULpZT17ZNs2LDN5f WxlPSdi XDIxG1KqrM7lPwIeRRWwYXS kOyc+PHRhYmxlIHdpZHRoPS slTWLeQaHxqDkhRY4rXw9sN GVyLWNv qRymtWKkYaEis5qzNVDlGUm lGA8rvZlrA3UtdGX8XWAvq9 o8Xu36U77wS2MrpZS+PGNvb XW6rSR7 xS1bFlQiLgM3BCssI687YuG xpVFoBxcdm3rit9vvgPb0Mq W9ETEvulKnnPsqAXQ5k3HuT t80O99t IHdpZHRoPSIxNSUiIHZhbGl wfy6xjD4rLs1+VSIbhVU9iL W3cK5nCiHbKuB6QKjzF063P nRvcCIv Rbifl1adt7ihvEf3TiVgJLZ lweYkcDwiLRJ3s3IqPu62L6 TjhYghl1YzTbc4mp89dHCjx 8M5nWM2 D9EqFKAaegnnrMTytQneQE4 kNSIkckayYWWuxY9iTCNrY5 j8IiZkFiL1ACmyM6UbzoQ2Q GJvbGQg LZFiqSZDlI7thefwx7qfwgj nLqSjCROvZSu4QWi1ZCWzvE poYbJjEZW4OwF9KVR2wQQuw P5nbJqr kazvtF9uGso+PHA7aHMxsKK ZNG6cVwobcCA+OLAnESA1iM lyHLihQEQmhQ7cZFOfJ5a7F iAwLjA1 SDbtD3ElbvP8ICNixVBbMYJ zkEJHyG4fgmymz4uyrbceSj NcXNDhQCq1EUp0OAXryUafA iBsZWZ0 HvB3KFO2lUCuvG3twXqkvhc pyW2tAgt+UlwftFdzHSY3WS w4Q1UaJtd4OKNtmMriXA4vk GFkZGlu As3wkXszuLeaYQ2uAHVjulb gn374ThPgk7cyHYAxeLYsTV oxBZI4L63ro2O2AAVlMSYrQ XG5qDG4 lH6niAvclwwmzZLckDjvlmP cyLwiOHdsYXszB747GPOrnE jbAaMqFZe3W1QjAju0DQRmg JtqBY2z kRCfHNuzTm3ucYhprSjtWO3 eWMJtikcfz759DtUnq7ljYD FkdEUpFZnvXJQ9A73qp2A5E CMwMDAw RQR7qPU4iB9zyJwdfiovzBA mdDsgdmVydGljYWwtYWxpZ2 76DFNciHjjTlIviLn5F1LmH xs0RCPx dWjyAV0foRZcRTymZb9ujCb loMhkYH9rQMLoliyon217Wy Gla9biGRYrqWJlTNxpPUI7U 46wc7P3 OTUaMDRtOSA8sOP4oY5ibVa nbjogbGVmdDsgdmVydGljYW vjLWieL836HLOdqGkmYbRsl GllbnQg AXhqGMy3S8XvXqamdSN+PC9 8IFTkLM23fCRweUVlv9szmV m1MbZsXXKgMWW1hSlxUQhuf 3JkZXIt I38veWGpk8H7MWAfaPrsjBQ pSrRshOY8qB5qFFariddbi1 zbdgaoIhdiw2cgty36hC45N 29sIHdp ZHRoPSIzMCUiIHZhbGlnbj0 suF8vPy8+LNNddTL8dWA1sZ 3jCFDxHrT9LQkgH189SpJej CIvPjxj u6syk7kgqAg7LlL5OFZjcyM lkHuzQMB1z7ExJj64W67hWZ dpZHRoPSIyMCUiIHZhbGlnb e0ryB7p Ii8+SFWywUB8jXS0jI8gVbA pBcO3PTqbF122BuNcpIOiOy awZ64mT2QplXH+OQHiJtt6L CBzdHls IA1ixSNkKSveHd1lJLX3NgK eEtZoSXxgU2GyEPEkxutdrq vqtOF7KOAuPBNkgC95Kq3sq DogMTBw cGWIiY4wgntrf8ihytghVnM wKIFhKKz1SXv8VHTlxYgpKd QmITO4CoA4OZB0vLOkmZ1lc Glnbjog lN7oQ7JiZFHofknuCn03hP2 qDiJbFdT2HWxyBhe+VFJVTV MNR2AGBTBZNNAOZfLVHL30E V59gBNm g6V0mTI0N6UyWWDjuymvcrv avQO0AQYqBMAihW76pEGaVY qnUd4oa2C9z529ROOrDHOgl B24Op3p fQtlINIjcUKUyU2cugldr4b vjpkfWuJnHVAnOFy1BPm3UF BnmWgkCpCaVKG9KrL7IHM7w KDcyZ2y vGpssrdngO1cXft+MDQvMTE fVSr8ABlifUD+QKEbKZE0yU zuZCfpUOAyiL5ePICyG4f2L iAwLjA1 TLmlP3CdBXLvdhjuAt35xG9 cPwWmMmX7SIatH1DxgcH6VA BhfBNgTZfbCJQ2C20af4R7F CMwMDAw NQY3vXJ6nI0mlTxpukfgmTU mdDsgdmVydGljYWwtYWxpZ2 46IHRvcDsnPjcyIFllYXJzP Z73VV08 zJNkz9C6qPH7W0QmAPDktjg xvggzoJW9QCWrMWPqvT38qF ZuUPjiVq7ud6K9t861RUDkV DUwaW47 Ca2frCcnSOUlzPBRoU0jysr dl7lerqrnRoUfCVTuKUg0OG t7JZEccIgxHhPtGNX8JqO3Q NY2pGNl cX3ovTecorlfrM7jWwz+RmV fJDfpCK83WA56oLHwr1C8hA G4L1ZbLUJqiungxugihVE1L DAuMDUw zN84zABmYEjqYy8go7I7k59 5ALAeXUSorZ38Zg7rnEnnFD JrpTYOqK1iiudrs2ojxjytB zAwMDAw AQk6GRi2OIFzlHvsJbYzUJH 8UrF6HHZ5pRHfpX5pdNbihz zwiN0gJma+C6C0xXL7qAPha DwvdGQ+ YW00ct02T5TwRvutNgv6GSE nJPL9bWI5hH9tGIPnMRphp8 L5fZE8R0IxpaIyau4ow4caI XBzZTog J88mhEWif2A7HTSvrQV2BFX qxEheHfBvfL48Grj+PGNvbG gpa9CaFegdk1dvh6kacOq7R jMwJSIg qcOnmVefBZQ4i9DuHp70X20 sIHdpZHRoPSIzMCUiIHZhbG lebj1utA8pJj8+SNJtrKF3j HQ8wC3n YwCmWrC3QAmmM341ThDweBU bUgzsz9nnd5xexVo9NpPnIY CkouByfRicBVH6m0UtRf11C 2NvbGdy w0AdWen0fu90vARgh2F9xUG 8K3PtCIRguzstcYHryTiwGI 9nKMXirsxpHNCciU3kSMYlE 7j4NlSk AwD1HFcmW8RtbzA8PKHnzUW tBMFftKOYbC7pmhqyl8beme kjHkRlUCEeNOb0AJm2IIWpg WduOiBs OHF5YfY4JFJ7vRYkcO9pkHp tirxvjO4ePms+VEf1r0uotC GoBX5tcRG1FY81UJ76qXLrw 1D7zBW2 N1NdXSLnpyxibdtcdML1FZK fLWQiaB54Sr5ppMgtCh4lJV WsMFU5LMVcyNDlK9WvwF4eN iAjMDAw USViD5KucOVkIRtjI464FGd cIrR0MDFionKkB3QtMCQhgN agDpY9l2I7Be1AYG64SS69X A09dXSs k8F9eOI5H3JtTJMwlpcxzpc njFF7XOIgXRYutF34Rp0ybI cpXn1lLIEuIHR4WHGboJBoX 7BmxP9o GbLfJGTcSGCqA7ZloLZcPEb eR655OGibSnF2TGGopwFoH4 JnNIBgvJbxTrW6z9S5Cs2PF f55OH28 UH00uVGli4E2uHC0M2BgHIZ apmasrbtsuRT5AJLkFTZypX 53Gg0isJkpAl1wHEPsMXX3L FRpbWVz V1ZgoF9eNrUbMKRzFAFuU7Z juMNuWCoyS764JRmpWuN7ZM QjkcKvV3JoRBFihDfvIyF3p 3V0Wf4Y SZlrcvr4J0DsPpzuqPO+PC9 8UEHeVJ63iFVfvHKxe1lexS k2XtTzYHMhRKL0sMloBCixt 3JkZXIt Y29s (more content not included)... Normal [facility] Main OR Intraoperative Recor don 05-26-2022 Main OR Intraoperative Record IntraOp Document Type FT Summary Primary Physician: Luis BENSON MD Finalized Date/Time: 05/26/22 08:45:38 Pt. Name: EVON CORCORAN /Sex: 1950 Female Med Rec #: [id number] Physician: Luis BENSON MD Financial #: [id number] Pt. Type: O Room/Bed: / Admit/Disch: 05/21/22 [...] Johnston RN, Esha Diane Role Performed Anesthesiologist Personal Lines Sales Rep - Primary Staff - Other Record Cutter Time In 05/21/22 13:14:00 05/21/22 13:14:00 05/21/22 13:14:00 Time Out 05/21/22 13:33:00 05/21/22 13:33:00 05/21/22 13:33:00 Procedure COLONOSCOPY(.) COLONOSCOPY(.) COLONOSCOPY(.) Comments Dr. Garnica supervising help in room Last Modified By: Dennise ECHAVARRIA, Hiral Bowden RN, Hiral Rodriguez RN 05/21/22 13:33:49 05/21/22 13:33:49 05/21/22 13:33:49 Entry 4 Entry 5 Case Attendee Sukhi STAHL, Ami BENSON MD, Lius Hall Role Performed Scrub - Primary Surgeon [...] and tissue Entry 1 Skin Integrity Intact, [place], Warm, and Skin Abnormality No Dry Outcomes [...] of positioning (more content not included)... Normal [facility] Consenton 05-22-2022 Consent [id number]#1.00 CD:127 Normal [facility] Discharge Instructionson Discharge Instructions [id number]#1.00 CD:127 Normal [facility] Consent for Treatmenton Consent for Treatment [id number] D:127 Normal [facility] Endoscopic Procedure Report - Otheron 05-21-2022 [...] Return to activities:: After 24 hours. Normal [facility] Comment on above: Result Comment: Elec tronically Signed By: Luis BESNON MD\.br\Date and Time Signed: 05/21/22 13:31 EST Other Comment: Soila ariza Attachment - attachment storage system not supported [id number] Can be viewed in source systemMissing Attachment - attachment storage system not supported [id number] Can be viewed in source system Inpatient Patient Summaryon 05-21-2022 Inpatient Patient Summary [address] [address] [facility] Clinical Discharge Instructions PERSON INFORMATION Name: EVON CORCORAN [facility]#:[id number] PHYSICIANS Admitting Physician: Luis BENSON MD Attending Physician: Luis BENSON MD PCP: Christopher WELLS DO, FAAFP Discharge Diagnosis: Diarrhea Comment: PATIENT EDUCATION INFORMATION Instructions: Colonoscopy, Care After Surgery Marcelino (ARLENE); Colon Polyps Medication Leaflets: Follow up: With: Address: When: Luis BENSON [address] [place] [address]. [address] [place], [place] [id number] [employer] (1) Comments: office will call for follow [...] Q-10) By Mouth every day. Comment: Normal [facility] Main OR PACU I Recordon Main OR PACU I Record PACU Phase I Document Type FT Summary Primary Physician: Luis BENSON MD Finalized Date/Time: 05/21/22 15:15:56 Pt. Name: NILOEVON/Sex: 1950 Female Med Rec #: [id number] Physician: Luis BENSON MD Financial #: [id number] Pt. Type: O Room/Bed: / Admit/Disch: 05/21/22 [...] By: Maryellen Bonilla RN 05/21/22 15:15 Normal [facility] Main OR Preoperative Recordo n 05-21-2022 Main OR Preoperative Record Holding Area Document Type FT Summary Primary Physician: Luis BENSON MD Finalized Date/Time: 05/21/22 12:19:52 Pt. Name: EVON CORCORAN/Sex: 1950 Female Med Rec #: [id number] Physician: Luis BENSON MD Financial #: [id number] Pt. Type: O Room/Bed: / Admit/Disch: 05/21/22 [...] By: Fritz Dover RN 05/21/22 12:19 Normal [facility] Monitor Recordon 05-21-2022 Monitor Record [id number] D:127 Normal [facility] Monitor Record [id number] D:127 Normal [facility] Outpatient Surgery Discharge Instructionon 05-21-2022 Outpatient Surgery Discharge Instruction [address] [address] Patient Discharge Instructions PERSON INFORMATION [...] Follow up: With: Address: When: Luis Dow [address] [place], [place] [id number] Business (1) Comments: office will call for follow up Pharmacy Information: [facility] You may receive a survey from [employer] asking you to rate your care experience. Your feedback is important and will help us understand what we do well and how we can improve the quality of care we provide to you, your loved ones and our community. It?s an honor to serve you. Thank you for choosing [facility] HERE ARE THE MEDICATION CHANGES THAT OCCURRED [...] Some feelings (more content not included)... Normal [facility] Patient Education - Texton 0 05-21-2022 [...] that are (more content not included)... Normal [facility] Progress Note-Physicianon Progress Note-Physician Patient: EVON CORCORAN Age: 71 years Sex: Female : 1950 Associated Diagnoses: None Author: Nahun PIMENTEL, Vinod Greer Postoperative Information Postoperative disposition: Postoperative disposition: To PACU. Optimetrix number: Optimetrix number [id number]. Anesthetic utilized: General. Physical Examination Vital Signs [...] meets criteria ( To home ). Normal [facility] Comment on above: Result Comment: Elec [...] Problems Bile salt-induced diarrhea / SNOMED CT 939521285 / Confirmed BRBPR (bright red blood per rectum) / SNOMED CT 381952963 / Confirmed 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 / SNOMED CT 77791597 / Confirmed Change in bowel habits / SNOMED CT 179222962 / Confirmed Chronic renal impairment, stage 3a / SNOMED CT 1351025367 / Confirmed Claudication of both lower extremities / SNOMED CT 464320370 / Confirmed Familial hypercholesteremia / SNOMED CT 1381835032 / Confirmed History of colon polyps / SNOMED CT 0721598595 / Confirmed History of DVT in adulthood / SNOMED CT 7151900294 / Confirmed HTN - Hypertension / SNOMED CT 6722217675 / Confirmed Hx of colonic polyps / SNOMED CT 4852027396 / Confirmed Internal hemorrhoids with complication / SNOMED CT 2583875276 / Confirmed Mild nonproliferative diabetic retinopathy of both eyes / SNOMED CT 173525087 / Confirmed noted in 08/21/2019 Diabetic Eye Exam. added per outpatient CDI policy. Non-smoker / SNOMED CT 74763448 / Confirmed Type 2 diabetes mellitus with hypercholesterolemia / SNOMED CT 155886857 / Confirmed linked DM with hypercholesterolemia per outpatient CDI policy. Type 2 diabetes mellitus with stage 3 chronic kidney disease / SNOMED CT 184197459 / Confirmed linked DM with CKD per outpatient CDI policy., Active Problems (16) Bile salt-induced diarrhea BRBPR (bright red blood per rectum) 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 Change in bowel habits Chronic renal [...] EST Height/Mike (more content not included)... Normal [facility] Comment on above: Result Comment: Elec tronically Signed By: Nahun PIMENTEL, Vinod Greer\.br\Date and Time Signed: 05/21/22 12:46 EST Giardia, Direct, EIAon 05-14 G. lamblia Ag IA Ql (Stl) Negative Invalid Interpretation Code Negative [facility] Comment on above: Result Comment: Perf ormed at: [address] [id number] PhD Armin Zaldivar Performed By: #### 1 [id number], [id number], [id number], [id number] ####[facility] [address] [place] [address] O & P EXAM, ROUTINE, REFLEXo n 05-14-2022 Ova and parasites identified Concentration Nom (Stl) Comment Invalid Interpretation Code [facility] Comment on above: Result Comment: No o va, cysts, or parasites seen. One negative specimen does not rule out the possibility of a parasitic infection. Performed at: [address] [id number] PhD Armin Zaldivar Performed By: #### 1 [id number], [id number], [id number], [id number], [id number], [id number] ####[address] [place] [address] O & P Exam, Routineon 2022 Ova and parasites identified LM Nom (Unsp spec) Final report Invalid Interpretation Code [facility] Comment on above: Result Comment: Thes e results were obtained using wet preparation(s) and trichrome stained smear. This test does not include testing for Cryptosporidium parvum, Cyclospora, or Microsporidia. Performed at: [address] [id number] PhD Armin Zaldivar Performed By: #### 1 [id number], [id number], [id number], [id number], [id number], [id number] ####[address] [place] [address] Coding Summary.on 05-12-2022 Coding Summary. CD:[id number] Gh0 bWw+PGhlYWQ+WW5USCHoF64 bvKFqcN2PT1hMAR3EJXGXSG AUPQ6QXL0pvAN3ILepC8Enn iAv TkbyqGLcMG01RFc5OZI3lJy pORegxP5wmKWiL2p2PvViYK 44uK73GZdvLNRzGoM2SpHrf jsgbWFy M3ncIwHgiJRbEsi+PHRhYmx lIHdpZHRoPScxMDAlJyBzdH egGU5fNv2sCCOyLUDxhNwyt HNlOiBj u8nhSFViFNrdPW3owNnfA2G qaRE2IREhf0l2Wz94gGR+PH BfFRY2yEteYSnxm894XkEjr 4riLYE3 hTVmFRysGYA9Q26zj0T6LHW zMBNxNUW4lGX4wZ3rrRmtyu xiX5KngONyVqD0DFD2dSYwl P6naQfa zmtyeF9lGmb+W41BVY9GONT AUN4RPqc6S5DkNglrlQT+PC 00XMXwHD46lDIliNTxd5zqm Bf0FwIe IOKaOXU9uYwiXJzau3TqRKA bN90owIKss1H9XYGqmBjuyX NaSpIxwHE2oD5sPQuomjphh 2hvdzsn Kfvqc2iznb06lP57L54hNXy cAGLlBMB1KSQkADQcsHbnlj 8acH6nUr2+EZdkn7ghy9fvv Dk4TvPi LTYkdgLlpScuWVH5j9PqJs9 1X5TxiEczm6LiZqo6bj18kC Uno4N7iTR2DMqmWLYtfE2cS WxlZnQ6 HTHhWnClyN61tZNbYKrmWl6 zsPepyPqmXW0kYWHzdtkfLU BayZ3lFLUzyKEarHmgNJ5uZ TBpbjtm d749QjKdEIQ4GBKhcUOpI6M lzS7oMqEcDWFkXMHcK1QaqW VcGTxpT450MValTqE7ZBZjy mBjO6Cy IEZjeWwkZtY1b1J8Jd9Wl5T zaumeJVM2NMxwUGEmHfM2Aw TbFtN1N8NpIwq3ALWtsKhrI D6hZ9Vu PNLdfkrmugcqlPL3IFPlGTR izG51qCKzRQikCv0ci8V1i0 09KNScJJEswD71Na7vySpuS TBwdCBU zV9eperit2vhwzlbSgQaQMT aQPw7RVh8PMFwbYjyIwBtCM T6NwB6CPI2mUJbpU4frZzyf xtgoX9i Oyc+I64gjE4xWSN7QOX9iij oEXQiqdYuUB15VT88V9KyCu wvdGFibGU+PGRpdiBzdHlsZ O5fOpEc y1wcs2TjIBmrT0VlAMWwQDc tNum3VGWhXRW1nEW4nN4fAZ UbRXezh4I6lXS2T9ZsxxWnx z0xb6cq GSCxNTiiE51vdRHdp2W5RNM bkYC4PCFuwMheRdLoiS82Fr c+AFTeoSaoa9EiUwrai3gln 7dcdUl6 IpOsFOQbrqKrwAxmABB5l6F yJo04F49sCZekYSSkAUWbSX BsWGTgkJwztj6lfI9hEd4+P GNvbCB3 yVF8mR2lYXImGtS8GYbpS72 6SrJkpFQeLpifs2dha6srzQ h4GaSrNRVhobUluYgaDLO5m 7GxVg49 J90gYMxtDIPrSFDdSINjPDO lxLjdye2uwW3hBw7+PC9jb2 woxr75pW90cQK+TJRwZGY1u WxlPSdw FEHzuV8yQKknNwT0QMFbBwL tkO86fHUlIRqvDh5ckInanG nnXK3gGWXjflayn594YsSck 2xkIDEw fNQjMNreOUI0V95ou7F9CHB rLPLiQEQ7rPN8rB9izEwzay ogbGVmdDsgdmVydGljYWwtY EaiR655 IHRvcDsnPlBhdGllbnQgTmF nUCx8H1TeMsh4JZDffNcvYQ 7ieHLxXWpnGp5tfRtddZbtC V7yWAAl pnlqk023ReBdb6wdJNWcbTR nZPofAYI7J37ej9Z8EGJnEO YsPDR8dAR2sA8buKjqlvesw GVmdDsg owJxnGwuJXjkZDohE088XMZ wkXutSiDatcFvLEVgbBE6OP 82HE64aWPnh4Z4nRS6S8KiA GRpbmct evurmUB1DJFbYZTwqM84Gy0 eaMyuCd5bBZCvOLN6RDXonQ BcY8KfcS4aFkEfFMDvQEDfW 3RleHQt BMcoJ007PMweSdN7HBKtpjH mP1SiUIFqzUwoAkA2p0K6Aw 4KA2X0TB43IH66pUEtf7O3y FT5P9Wi DKBdjmnktvovlTI4XJNzUWK bcN13Go4ssKjbUz2gXGTuDI O7PGSrzTEiK1JbuV3eTrUaS DAwMDAw Y8XmcAJxVVvhZ205IYjyYoO 0NZZodePxW4BlLBBjnXmeSx M2k7X1Vc7KJYt3EE75CQ59q HTno4G5 sNU1O7YcJECngyrpcbmztMF 9AUGwODJpxS48Ll3frOyhNp 4mXTVaJFT4MMSmhHCtT4Bbt W4sSwAp LAOtPYLmS7RhaVBhEHsdL99 4VKqrWqY7WUVjufCuT6TvJY KqpCpmUfG5u5U2Ey2KBPOiW Q40XML1 tCA2ML89WH30N8IvYvrhzBT ibGU+PHRhYmxlIHdpZHRoPS acSHQqFmGdeBxyZH3dLd3zU GVyLWNv eUxxpYScVhUge5vmJCXxEZo wFW0jyOkhI8CwuSP0QSQvi6 d2Nh75M19kY2CxgYC+PGNvb BY1hQE5 gJ6zDyArRsC8PLnkC462KjP mnSGrSfwwc7vkx2pssFy8Bm P7YDBhxdOzcWxiUAR6v2CmK e74A92e IHdpZHRoPSIxNSUiIHZhbGl ujq0fiC7hPj2+HHPikUY6mX I1xY2fVpKiAoP8HVcxX278I nRvcCIv Isrpa8nev9tkwCl0OdLwPKG fluKrjArqOVT2b8TaQj57J3 GqiCagx1VmGef3qv07tKLzj 9C8qYC0 A1NfDNOzamtfaFAcbGoeIE2 lQEHyajkiZRQevJ4rQJYuU1 o6BnOlBqW4OGrwV5PxkpW8S DEwcHQg JZblAAX1J54pg5V4LSMyLEG cGJF4hPX2fR7igLabhtbdiR VmdDsgdmVydGljYWwtYWxpZ 246IHRv cWweADVpsG8nGRNpwZLedHv cQS6hUYNqypetZrXMFS2QU0 fSCbptO7KOWV0zPRrpqUR+P HRkIHN0 vUfrOSolQKBohV0fDZKkG8d 2GlUpBuD2FUquW5QqNAHwei rzAi85yK6bWdXdXgA8CAatA 9UmioW9 AZXcmBOsFZekVGR6P26ss5V 7SACvOEZyLDV7iML7hK3afU lnbjogbGVmdDsgdmVydGljY WwtYWxp E478XODpyFjjQpG8JbQqKwO 8FCX4V3SyNzx6GSPwjNayAS 7xwWOiVUflRl0fwOfmpXtgG S9sAOHb ezhiUKKqlX2nZSMfmDRplIv tZX5nEFVvjfdyj794GsYaAB G0VJTzuKGqN5RxwX0eGiEaQ DAwMDAw W8IvfNNkZVcbQ522TPuaSrK 0MVNiveSfO0JeITAoiShyLp I5j7Q6Ri69TxVRINCmidnki GQ+PHRk OQR2oPvqZPzpHOZdbC2rKGT oP4f2KdKkBgN5KFqoF7TjZU WipsukOr68rV5cNfHwFhP2D VeuL5Zf qiW2KEZnzCJgFNqeBZN6U19 hx3J4JCFvGINwUJC0yZQ2zB 1hbGlnbjogbGVmdDsgdmVyd GljYWwt SJfiD514LMNwmXkzUxIvoDJ sZTwvdGQ+NMLeXSX9vOqlZM zjVBLifQ9wPHUjN9c7GwMoE wL3DCnd M3YtUYEgfuvxFx71jL8eSrV fDgD8UMplP7GrbmQ5YJPusQ PfNMueSXG0P30qx7B7JJWuQ DAwMDA7 pUH7sX0noXtytigcyCGxpEl virLcxDmgVOnoLKjiC081VF EsuBfdOxorAlGUrz0uCH4yJ jwvdGQ+ NG48fu66Q4JkAxzhLjw7HEP nLAK6rHR3gQ9sHQQmHAffr2 Z8bQF6L1BlpeWfbu6my6skM XBzZTog A08dkYIjh2S9AUGxtBH3DRP kwOnkUfJglQ82Bsa+PGNvbG klx3NiKgtua0wbe0kisQs8G jMwJSIg coAyuLhjPMA5v3JsUc42X22 sIHdpZHRoPSIzMCUiIHZhbG hppg0zhW3tGh1+TJFioUK3o BR1jY9k LiHlFoR0UZbcW792MtHuwKG uTiphw4btm2rppYg1QoWiUD EnkkBxyVozJKF4s8IxDx90Z 2NvbGdy o4CcRkf1vp19bZSzx6S1vXL 5U5ItSQYpiohfxOWrnMrdDM 9rXULvszenRLSdcC3qRDRmO 8e0XlGv QkN9YEnzJ5WbyxQ4WJScdRE eWLRcqYKSzD5ifkhfx8iytb zrNsGsYQDxPSj8IAp7TDCzu WduOiBs APE2HfO9TIY4hESkbI4ooYk dbpdunZ9hImv+GSb5d0bnsL CuSG0maIY8BO60CO79gNKqd 9T4yQA4 R4RoOHEsooexfblgfEO3RFV nLAWmkX80Wx3wgYomMn8rWY AzDKO6YCBryLRvM5WfdH6xH iAjMDAw MXUrF1FtwDDnGSokQ857DZf kWiR5JGXnxoNsL2JqSFYvpO qvSmH5z7I4Be1IYQ90TF08K G25nOTx q1X6mGS1D7UkHMBpwugrskv aqNY8NZLjRBIbdX10Qf7qjK ymQb8pIALpIUG3BCKyyOFhG 4UxrE0t MaPiYCRzRWCeX4KubJQjMLe jH168GCcdTqX8HDUalcOyM0 DiNZVswFtpIuQ3f8J2Vg8MY m09VR96 HW74sLAms2R9nKH9T5PqXXP qlpdsaycmfIW7XTCgYKWrxO 96Wh5wpLmyNz2gGBCpBFF9M FRpbWVz C0OuhU9uOtAcSIPdCZPsA5N jcOBvKFyhM604LStzAxG7KU CvtyHzB9JcZMQokPycOsA0p 4D2Hq6M WEytjbq0P0HpMwpuoLG+PC9 1PBQuZO20gFQnbPZkk7xmuT u0JpDjAIIoGKX8oRrbBHhsb 3JkZXIt Y29s (more content not included)... Normal [facility] CDiff PCRon 05-08-2022 CDiff PCR Unable to perform te st due to consistency of stool. C. Difficile testing will only be performed on diarrheal (unformed) stool unless ileus due to C. difficile is expected. Reference: Clinical Practice Guidelines for Clostridium difficile Infection in Adults, Infection and Hospital Epidemiology July 2009, Vol 31, No 5. Normal [facility] Cdiff Specimen Acceptable Unacceptable Normal [facility] Comment on above: Performed By: #### 1 [id number], [id number], [id number], [id number], [id number], [id number] ####[facility] [address] [place] [address] Order Cancelled YES Normal [facility] Comment on above: Performed By: #### 1 [id number], [id number], [id number], [id number], [id number], [id number] ####[facility] [address] [place] [address] Enteric Panel by PCRon 05-08 C. coli+jejuni+upsalie nsis DNA ARCELIA+non-probe Ql (Stl) Not detected Normal [facility] Comment on above: Result Comment: Test ing was performed utilizing reverse plastic cnc machine operator (RT), polymerase chain reaction (PCR), [...] nulcleic acid test. Performed By: #### 1 [id number], [id number], [id number], [id number], 24369236, [id number] ####[facility] [address] [place] [address] E. coli stx1+stx2 genes ARCELIA+non-probe Ql (Stl) Negative Normal [facility] Comment on above: Performed By: #### 1 [id number], [id number], 98754337, 93592689, [id number], [id number] ####[facility] [address] [place] [address] Enteric Panel by PCR Negative Normal [facility] Enteric Panel Intrl QC Pass Normal [facility] Comment on above: Result Comment: Test ing was performed utilizing reverse plastic cnc machine operator (RT), polymerase chain reaction (PCR), [...] 1 and 2. Performed By: #### 1 [id number], [id number], 02670786, 76612114, 13190741, [id number] ####[facility] [address] [place] [id number] Norovirus genogroup I+II RNA ARCELIA+non-probe Ql (Stl) Not detected Normal [facility] Comment on above: Performed By: #### 1 [id number], [id number], 72546294, 84962148, 70208830, [id number] ####[facility] [address] [place] [address] Rotavirus A RNA ARCELIA+non-probe Ql (Stl) Not detected Normal [facility] Comment on above: Performed By: #### 1 [id number], 36736563, 33023903, 01734273, 76913943, [id number] ####[facility] [address] [place] [address] S. enterica+bongori DNA ARCELIA+non-probe Ql (Stl) Not detected Normal [facility] Comment on above: Result Comment: This test result should be correlated with clinical presentations and medical history by a healthcare provider to determine its clinical significance. Performed By: #### 1 [id number], [id number], 71830009, 73787023, 08485234, [id number] ####[facility] [address] [place] [address] Shigella species+EIEC invasion plasmid antigen H ipaH gene ARCELIA+non-probe Ql (Stl) Not detected Normal [facility] Comment on above: Performed By: #### 1 [id number], [id number], 47197712, 29289602, 83293331, [id number] ####[facility] [address] [place] [address] V. cholerae+parahaemol yticus+vulnificus DNA ARCELIA+non-probe Ql (Stl) Not detected Normal [facility] Comment on above: Performed By: #### 1 [id number], [id number], 12758960, 23771423, 03494685, [id number] ####[address] [address] Y. enterocolitica DNA ARCELIA+non-probe Ql (Stl) Not detected Normal [facility] Comment on above: Performed By: #### 1 [id number], 20575217, 81984232, 38986720, 87078343, [id number] ####[facility] [address] [place] [address] Fecal WBC Lactoferrinon 04-17 Fecal WBC Lactoferrin Negative Normal Negative [facility] Comment on above: Result Comment: The semi-quantitative detection of elevated levels of fecal lactoferrin is a marker for fecal leukocytes and an indication of intestinal inflammation. Performed By: #### 1 [id number], 15885523, 85516763, 14611546, 37557258, [id number] ####[facility] [address] [place] [address] MICRO OTHER TESTSOrdered By: Cynthia Case on 05-08-2022 Fecal WBC Lactoferrin Negative (05/08/22 9:00 AM) Normal Negative [facility] Man Sero Coding Summary.on 05-07-2022 Coding Summary. CD:[id number] Gh0 bWw+PGhlYWQ+IB2BJPQeE38 vgUUigJ8SZ9tGTO9YOIWLXN CZGV7TQC4kiYO5PZwiN0Wmr iAv BjzklWLcCF36WSl1GTF7eZz uAKmjmX9tyHXuB8x3ZpBvDS 54hQ77HMixGKSmQpO3FcOzb jsgbWFy P5pcMwExrPPyLey+PHRhYmx lIHdpZHRoPScxMDAlJyBzdH ghBK9wBa4jWCVuTXTntFblj HNlOiBj r0hbSMIuBQnuET5iyTnxV3B koCF9JYMbu3n1Ch86vYX+PH UoFTL6aLcuYOnvs853XnQaw 4fwKCC9 xAVjEXgpEQJ9K74mx0C5BKE bACCaKIJ4lZW0oK5pkZvhzs keF0CmnPMoAqB3JPW7cUIkz O0sfJeh lqsxeO9tEfs+L88WBA1QYVL LHV4ESrn8G1YrCxjrzWG+PC 12NHAnCN11wQIilRIwu5drm Ub0YrKh HORmKKZ1mGvhVYbpu2IsPYZ sF14gaZKmi6Q4PKBqbVlqkX GgWiPiiNH2xZ6fCNfgheazk 2hvdzsn Wsvhe7fsze03dA73J57bTOm qNJEsXYX2BAKiCUKflQpabx 7lcN2tYb2+KEiyo5rnm6gvu Zy1DpSv FTDsewMzeHimGJR4q8TrVc8 6H7KifGnzg8EbFup3ok32aJ Aol1N9vVY5CLsfQYGfcQ7gN WxlZnQ6 YNEkVtXlnX15vZImZIxeHq5 vwUxmzQfdCA4qOSOmiytxQQ RnpS6wXOCdaOTexGvyNC3wV TBpbjtm c164IvQoQLL0IITokBJoX8Q fsN7wOvJdPUWnEGDpZ7DlvH YpXWcbU322PAeyIkR5TCOgb eSvH6Gu OEBfzRnmIvT2k8J4Ke7Ib8T irumxBNB9JMnvIPOgOtZzQt YnBzV1U9SaShy2ZUTjmVupH Z7aH4Ew CFKtxovtrteivWF7KNTcRNG nlS82gVCjTUjcVg0gr7S4o4 14GDLtRUMhyP04Nd3jwMdzM TBwdCBU fK7flyiwm7arkdrvTzGlNAN aYMg4IGc4UNPvnUjbRnWqOL V6AxS4QCQ6hUQaqW8uqLyqe fcbxU7f Oyc+P10oiF2rAES2JMC6wez lCNMcoeAyAU50EN72V0IdXm wvdGFibGU+PGRpdiBzdHlsZ Y6qTySa k5gfs8KfXIrcI8WyCGKbPXp oPxj7ZSFnIYR3lKN4yH1mRT OaSEodw1S2xJS9J7DlbgEsm m5df0mx TGQmUZpvN04gqMOhx4G2SMS zlVR9FROlwZvvEdGdhC73Ov c+IVSwoUklm4MkRmqqi2ihb 5jccRt6 VePtSRXqtjCnrRrvYBX2q2F pUt52E31dGRjjIKMzRZZaWL VkQMDahZgjjq1ynZ4cRt1+P GNvbCB3 hYB2lM2vPUNiKsG9MOoiY37 9KcLroPImGbyzt9fhp9yqbV y9LqAqJAHotzObmSbnTCR6v 0BeOy58 O14xHKavAGHdQGXfMAZqLBP iwAyazp1wpI2fOe0+PC9jb2 jwop50eZ30oMY+LYUnSMX0u WxlPSdw HJRnaV7nKLmdQsK5IORhSiC wxY09dUDkJYqrKj7ygGarzR efPK8ePOGnvopua199QiMjb 2xkIDEw kFVpAUhsWQL1X67ne2B2LWH mGXKrKEX5zNY1bV0nySylht ogbGVmdDsgdmVydGljYWwtY QqgK000 IHRvcDsnPlBhdGllbnQgTmF dRUi1D1LgZun7WNPqjRftCX 9gfETrKIuhNm9tlFmacSawL Y4sKGXf oxqdd402ArYww0vmPSAvoBO lVVcaRAK3J95fm6I7YOBiMS SjGZH9zOU5zF1cbYnlzgudx GVmdDsg gcRfcQflUWxqISvvF405BNP ipKyhCoGjgxZrLCXaiPX6KF 13JR48tTNju0L7uIR9W2MzL GRpbmct bpaynWP4BQBiHQErcO80Qa3 wcKplFf6fANEbNXE9KNNemA KfV2LivH9fZfWeJZVpWVCsZ 3RleHQt JYzzA826BVbmLwJ4DDSxtaW uT9DgEFEewZeeKiI2e1B3Qe 1YS3Z3DK30YW24wLCko7O4p KL0U5Fb JKSyijjgqlvwxIG6ARScGLB rcZ26Fl5szBlaQh0qJZWhAA M7DYFmeXZsQ1GvlU2fQeDnL DAwMDAw Q0TqkMDdAKbmE833PJohMiN 4MOBwauVnU9AwQAGvuGtlEr K7e3S2Db5WZXe6ON13XM93k TTvz8J4 tTK3M5BmBEDnhxscajdvkNE 8NZIxSIDmwI76Nl1ckGolQv 0jUKPtCKC9TPFydXBqA5Uzt V4yYtDr HFWbXVHrI2RwdQLeAXrqB19 0QZonZuX8TQEkavWzJ5AmRG LojPrdEuU6b1X6Re8FUDDeL U82MIP5 cAD1IJ22OA60G4QtKgbmpHG ibGU+PHRhYmxlIHdpZHRoPS kqHCRaXqBodTxvUA7aJb1lQ GVyLWNv ySnwdIZsRkAef5dnRIEnVUj vJS0iqKgvW2KreDP0YLZud8 a0Er59P31xY1PgmNN+PGNvb NU1cYW4 bR0rJpIhUbH0FSkdT620TfW amGOaVrtwx9hup8wwkZu2Mr H8JXTodzQgbSlaBQW1y4RpJ t24A59g IHdpZHRoPSIxNSUiIHZhbGl mog1veA1lVi9+NJZcqFP2cP D3fX9gEzRgKvH4PMitZ820T nRvcCIv Vkcpm2kdz5roiOy7FoMmIVL zppNnjQexNVY8c0AaXv46G6 CswBqpe2NmYiu1zd50lCFrx 4Q7hZG8 G8FvMTHumjbkxLKjmFuxYW2 bXQMdlvzdKWBbbD1hQDKxL8 k5AcLcKoN1BZxkO1TrreS1G DEwcHQg KHkxSRL1R71ed9K8FYTgBIE oVSN5qIZ1iM2zsRoqojcjcO VmdDsgdmVydGljYWwtYWxpZ 246IHRv xCvsREPyzQ2iIBVucPDwvQe kFB7sOQQakdurSnIIRZ7GV8 sYBxwsR1VGLP5oYNvwbNL+P HRkIHN0 eWcpOApyZYCieB9cBDVaQ6d 7EiHaBuU9WLwqE5JgHPMcep wxNc41yH2oXqYwFxB0BXnnN 2FkbcN7 NFUetQNrXKuuJFO8Q60qn8J 4PQLoVMVpUDA6bVT4nR7luL lnbjogbGVmdDsgdmVydGljY WwtYWxp T560FNSdlDguOjR1TqViIsN 3FJO9X6BePuf0UHExsOayUH 3bmFZhVFspFa5wmMecfEabM L9kEQJy gvyfAHVhzT9nTXMytIImkQj iBB2eGZRkjabhg542EqArKG D2AHRkxJCxT6BdvS4xZzSbW DAwMDAw O9FanZIrYQvoW523JGmjPiQ 2JMNoiaZyY2QhBHHweQzrAi C5l2U0Qp28YlYUKABoazkjn GQ+PHRk DIV8pUudPNatKBSuuH8fLSY lX3h6WuKcIhD7ICivF4LkKR NznsreBd24mQ8dYmHnOhQ9G XimU0Hj jqA4JSTpsAYbEGkxDYH1C17 ej0G8FMDeFBZjNNJ1mNP8lW 1hbGlnbjogbGVmdDsgdmVyd GljYWwt CXetD264CJEtnHlvUdWlfSM sZTwvdGQ+EDVhBSD2wYykKR zjCVFfoE4sYZXxY2r2QvAfU fX6EUzx C2KzRASbifkwCw68sA4mPtF uMdD5UZrmV0RohtR6CFJwfW OgIKbpJRR1C96ff7S4OCNhS DAwMDA7 iHH7mR6moQdzefzhtFXfrBn otgDohJmoGZetPPpgL393SM UrlImjTz45zIOovGlzabR3L 3RkPjwv dHI+RY41VTOsRM91eZKmuNK vf0ydzFa2EeIpYMJwXEL2lU mxQFwpm4YzLJWcR52hiREbq 5P4VWSr bQeywZWvBeXbcZA7kJ7zPWc lopavj8eepjahSceic9gkcm 57rG40G50fZSfgAZNpLXYpP CUiIHZh iMcjci0vpZ8xWk7+PGNvbCB 1vMN3oE7dLeEaOeA6WQaiO4 97EpUehISeMuivl5twh4ksr Gs1DcLu HZXmyaRewKcyJEP0h4IaKs2 2V17cKVdoRQLpHMDrTPAkWJ OkwUxods1skE7jTu2+PC9jb 9ynql57 sV40qTN+TZYdERR8zXhvTXg uOBCboH2rYLwzNmE2QZBgWg BhnN13pXHjSMbuLi6puHppb JrzLR8v MRUwoenvz339EzAnu4oqDOF nsLYcPZutXYS0M47uv9V7LP AeGSPdOLB4aSC7qZ7hxWzkt jogbGVm nDtjatIvbRjnBTddWSaqU66 6PPEgnUyyPjJibEZsR2fofj FNFM2qRbtdoMP+WXTfXNN4h WxlPSdw QFUfjG6sKUEeW1s9NvHxLaE 6GJjsG7OekmF1ATFbbHRrKL YbtKDQoZ6fbuaqd7bijcblU zAwMDAw QRs6UMf4BPJgbAscDpFlDJM 9JrZ4MXJ1mTPqjG4zkFomwc kaqH7gZan+RklOOjwvdGQ+P HRkIHN0 dVueETqmTGJrlV4sHEOmV8k 0BfMvSbT4ZRxcJ6LtbaS8HS HdsMCiBJSzhUQLgA5dxlrlt 2xvcjog NpTrLUMzZHx8OLg5VRKjcXe tDgQhAJV6YdW5NGZ9wDQmtR 0vnPbzduhqrR9mKvz+TVJOO jwvdGQ+ AYVmWCR1pAjpIEwdSRNlbM3 uZMSwD9b3PbIwGxG3QZrnM7 NpkeG4OIXdlSUoFANhkBSEx Q3ppins p7wgeblzMvDzCCMkHBu8TOn 3ODXjtXdjVcQqTDF1YhB4DM I3bSLrqK7kkZrbgqpuvV2kY yc+UGF5 XCZ0HK45RQ86X1ItQqaahMM ibGU+PHRhYmxlIHdpZHRoPS ozXRKtOuMyeLbvDH8bXd2sW GVyLWNv bGxh (more content not included)... Normal [facility] Consent for Procedure/Surger yon 05-06-2022 Consent for Procedure/Surgery [id number] D:127 Normal [facility] Ambulatory Visit Summaryon 0 05-05-2022 Ambulatory [...] Lab Collect, Change in bowel habits Normal [facility] Auto Diffon 05-05-2022 Basophils/100 WBC (Bld) 0.6 % Normal 0.0-2.0 [facility] Comment on above: Order Comment: Order Added by Discern Expert. Performed By: #### 1 [id number], [id number], 8557470, [id number] #### [facility] [address] [place] [address] Basophils/Leukocyte s Auto (Bld) [Pure # fraction] 0.0 E9/L Normal 0.0-0.2 [facility] Comment on above: Order Comment: Order Added by Discern Expert. Performed By: #### 1 [id number], 6343644, 3485032, 8836026 #### [facility] [address] [place] [address] Eosinophils/100 WBC (Bld) 1.6 % Normal 0.0-8.0 [facility] Comment on above: Order Comment: Order Added by Discern Expert. Performed By: #### 1 [id number], 7573851, 6581635, 0845153 #### [facility] [address] [place] [address] Eosinophils/Leukocy bev Auto (Bld) [Pure # fraction] 0.1 E9/L Normal 0.0-0.5 [facility] Comment on above: Order Comment: Order Added by Discern Expert. Performed By: #### 1 2331430, 7486799, 1220717, 1177374 #### [facility] [address] [place] [address] Lymphocytes/100 WBC (Bld) 15.4 % Normal 14.0-50.0 [facility] Comment on above: Order Comment: Order Added by Discern Expert. Performed By: #### 1 [id number], 9652829, 2767547, 2464828 #### [facility] [address] [place] [address] Lymphocytes/Leukocy bev Auto (Bld) [Pure # fraction] 1.3 E9/L Normal 1.0-4.0 [facility] Comment on above: Order Comment: Order Added by Discern Expert. Performed By: #### 1 3163027, 1549475, 4579791, 7132344 #### [facility] [address] [place] [address] Monocytes/100 WBC (Bld) 5.9 % Normal 4.0-14.0 [facility] Comment on above: Order Comment: Order Added by Discern Expert. Performed By: #### 1 [id number], 3352826, 3810835, 5565476 #### [facility] [address] [place] [address] Monocytes/Leukocyte s Auto (Bld) [Pure # fraction] 0.5 E9/L Normal 0.2-1.0 [facility] Comment on above: Order Comment: Order Added by Discern Expert. Performed By: #### 1 [id number], 1905773, 6616201, 8676294 #### [facility] [address] [place] [address] Neutrophils/100 WBC (Bld) 76.5 % High 36.0-75.0 [facility] Comment on above: Order Comment: Order Added by Discern Expert. Performed By: #### 1 [id number], 9873162, 9794205, 9105941 #### [facility] [address] [place] [address] Neutrophils/Leukocy bev Auto (Bld) [Pure # fraction] 6.4 E9/L Normal 2.0-7.5 [facility] Comment on above: Order Comment: Order Added by Discern Expert. Performed By: #### 1 6320353, 2907487, 7185311, 6970119 #### [facility] [address] [place] [address] CBC w/ Auto Diffon 3 Erythrocyte distribution width (RBC) [Ratio] 14.1 % Normal 10.9-14.2 [facility] Comment on above: Performed By: #### 1 5017717, 9000125, 7959773, 6163091 #### [facility] [address] [place] [address] Hematocrit (Bld) [Volume fraction] 38.1 % Normal 34.0-46.0 [facility] Comment on above: Performed By: #### 1 4978234, 1876173, 7860963, 6010280 #### [facility] [address] [place] [address] Hemoglobin (Bld) [Mass/Vol] 12.5 g/dL Normal 12.0-16.0 [facility] Comment on above: Performed By: #### 1 4522245, 6331854, 7320743, 0562702 #### [facility] [address] [place] [address] MCH (RBC) [Entitic mass] 28.6 pg Normal 27.0-34.0 [facility] Comment on above: Performed By: #### 1 7341329, 5602897, 3209072, 0969243 #### [facility] [address] [place] [address] MCHC (RBC) [Mass/Vol] 32.9 g/dL Normal 31.4-36.0 [facility] Comment on above: Performed By: #### 1 8002716, 8935443, 2989647, 6399382 #### [facility] [address] [place] [address] MCV (RBC) [Entitic vol] 87.1 fL Normal 80.0-100.0 [facility] Comment on above: Performed By: #### 1 6056718, 5045670, 0909640, 4708385 #### [facility] [address] [place] [address] Platelet mean volume (Bld) [Entitic vol] 11.0 fL High 6.4-10.8 [facility] Comment on above: Performed By: #### 1 5794832, 5536360, 1088368, 4731769 #### [facility] [address] [place] [address] Platelets (Bld) [#/Vol] 202.0 E9/L Normal 150.0-500.0 [facility] Comment on above: Performed By: #### 1 8777765, 4715999, 5354006, 9589817 #### [facility] [address] [place], [place] [address] RBC (Bld) [#/Vol] 4.4 E12/L Normal 4.3-5.9 [facility] Comment on above: Performed By: #### 1 3381210, 0245824, 7368899, 2422297 #### [facility] [address] [place] [address] WBC corrected for nucl RBC Auto (Bld) [#/Vol] 8.3 E9/L Normal 4.0-11.0 [facility] Comment on above: Performed By: #### 1 9816642, 6261981, 0777112, 0924333 #### [facility] [address] [place], [place] [address] CMPon 05-05-2022 Albumin [Mass/Vol] 3.6 g/dL Normal 3.3-5.0 [facility] Comment on above: Performed By: #### 1 7400015, 0643236, 9365758, 7642712 #### [facility] [address] [place], [place] [address] Albumin/Globulin (S) [Mass conc ratio] 1.0 Low 1.1-2.2 [facility] Comment on above: Performed By: #### 1 0513275, 7485575, 3538569, 3903996 #### [facility] [address] [place] [address] ALP [Catalytic activity/Vol] 93 Int._Unit/L Normal 21-98 [facility] Comment on above: Performed By: #### 1 5118180, 4294113, 5371849, 7895168 #### [facility] [address] [place] [address] ALT No additional P-5'-P [Catalytic activity/Vol] 27 Int._Unit/L Normal 6-46 [facility] Comment on above: Performed By: #### 1 1139341, 1088483, 3796999, 0656771 #### [facility] [address] [place] [address] Anion gap [Moles/Vol] 15 mmol/L Normal 6-16 [facility] Comment on above: Performed By: #### 1 9706809, 8873924, 3583119, 0742708 #### [facility] [address] [place] [address] AST [Catalytic activity/Vol] 29 Int._Unit/L Normal 5-43 [facility] Comment on above: Performed By: #### 1 9519399, 5496873, 5595770, 7090580 #### [facility] [address] [place] [address] Bilirubin [Mass/Vol] 0.8 mg/dL Normal 0.0-1.1 [facility] Comment on above: Performed By: #### 1 5996572, 8740497, 2723913, 4398930 #### [facility] [address] [place] [address] Calcium [Mass/Vol] 8.6 mg/dL Low 8.9-11.1 [facility] Comment on above: Performed By: #### 1 8384386, 5160454, 7825274, 9810023 #### [facility] [address] [place] [address] Chloride [Moles/Vol] 100 mmol/L Low 101-111 [facility] Comment on above: Performed By: #### 1 5585103, 5901161, 9392748, 4895252 #### [facility] [address] [place] [address] CO2 [Moles/Vol] 26 mmol/L Normal 21-31 [facility] Comment on above: Performed By: #### 1 3786195, 6177069, 9533314, 7628263 #### [facility] [address] [place] [address] Creatinine [Mass/Vol] 1.2 mg/dL Normal 0.5-1.3 [facility] Comment on above: Performed By: #### 1 9197096, 0880319, 9683459, 8345050 #### [facility] [address] [place] [address] Globulin (S) [Mass/Vol] 3.7 g/dL Normal 1.4-4.0 [facility] Comment on above: Performed By: #### 1 1339240, 7433348, 9584337, 7191217 #### [facility] [address] [place] [address] Glucose [Mass/Vol] 303 mg/dL High 55-199 [facility] Comment on above: Result Comment: If t his glucose result represents a fasting glucose, interpretation should refer to the following reference range: 55-99 mg/dL Performed By: #### 1 0035190, 2933977, 6715120, 6164044 #### [facility] [address] [place] [address] Potassium [Moles/Vol] 3.8 mmol/L Normal 3.5-5.3 [facility] Comment on above: Performed By: #### 1 6265645, 5742221, 5663650, 9894473 #### [facility] [address] [place] [address] Protein [Mass/Vol] 7.3 g/dL Normal 6.0-7.8 [facility] Comment on above: Performed By: #### 1 9958069, 3751875, 8498971, 9800804 #### [facility] [address] [place] [address] Sodium [Moles/Vol] 137 mmol/L Normal 135-145 [facility] Comment on above: Performed By: #### 1 7389170, 6621008, 1531097, 6355524 #### [facility] [address] [place] [address] Urea nitrogen [Mass/Vol] 28 mg/dL High 5-21 [facility] Comment on above: Performed By: #### 1 1052198, 7343795, 7962603, 9542563 #### [facility] [address] [place] [address] Urea nitrogen/Creatinine [Mass ratio] 23 No Units High 10-20 [facility] Comment on above: Performed By: #### 1 8499997, 7766960, 6332551, 7843702 #### [facility] [address] [place] [address] Consent for Treatmenton 04-17 Consent for Treatment [id number]#1.00C D:127 Normal [facility] Gastroenterology Office/Clin ic Noteon 05-05-2022 Gastroenterology [...] left leg with Dr. Barney, Vascular at [facility] 04/07/22. During today's visit, patient reports [...] Refill(s) 0, Prior to colonoscopy., [id number], 165, cm, 05/05/22 13:40:00 EST, Height/Length Dosing, 95.2, kg, 05/05/22 13:40:00 EST, Weight Dosing Follow-up With When Contact Information Linda Solorio CNP Within 1 to 2 weeks Additional Instructions: Following colonoscopy. Patient Education Colonoscopy, Adult Problem List/Past Medical History Ongoing Bile salt-induced diarrhea BRBPR (bright red blood per rectum) 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 Change in bowel habits Chronic renal [...] 3 chroni (more content not included)... Normal [facility] Comment on above: Result Comment: Elec [...] including vitamins, herbs, eye drops, creams, and snty-epu-tqleyiu medicines. ? Any problems you or family [...] air t (more content not included)... Normal [facility] eGFRon 05-05-2022 GFR/1.73 sq M.predicted among blacks MDRD (S/P/Bld) [Vol rate/Area] 54 mL/min/1.73 m2 Low >=59 [facility] Comment on above: Order Comment: Order added by Discern Expert. Result Comment: eGFR is race adjusted. AA=. Performed By: #### 1 3673913, 6781598, 9920506, 2465832 #### [facility] [address] [place] [address] GFR/1.73 sq M.predicted among non-blacks MDRD (S/P/Bld) [Vol rate/Area] 44 mL/min/1.73 m2 Low >=59 [facility] Comment on above: Order Comment: Order added by Discern Expert. Result Comment: Drafting Clerk jin kidney disease could be indicated at eGFR's of less than 60 mL/min/1.73m2. Kidney failure is indicated at less than 15 mL/min/1.73m2. Performed By: #### 1 [id number], 9287692, 0345446, 4524507 #### [facility] [address] [place] [address] PAD Rehabon 04-15-2022 PAD Rehab Please click on link to see report pdfCD:[id number] YepRWCmBBAuIEGrGLUJJo1Z R4gcrnatKRNzBjWeFACf LAIwOFrbznEwx9YzbQO2LNn xNf2GchUeiU5jESjPV195uX HbghBvL79jjF4sVEMfq35oZ o5HanMx qMdqfvRmsUYiEAT7HmMsKnS xMzExNDUyNDEtMDUnMDAnKQ o+YuprmqGcGszTXDXwDI8cq zc5IIfv JGotVBBbKi3gjBXdz4NcxGY 3l4RJP2BqiuDZYE4gIX9Wqp lneT8VKa6IpDMeoaKzHlccS b8vvROK f4txXe54TjVeCMRaIZSjTIW iFORgOCZrYk8KxENegJ6qI0 acwQrnDmk8Ll7GfIInDRS0B GbhJ9Zk xLPzAhjDF4o4ZVdwG8OsK6j uQVVOZ0LloYwcvOsdrYF2JE OSF5gLVSpyuGCtUCI7Fk8Br 2NlbnQg DUX4Ua6XXZDsND15AY4lEWZ SH3soEGFwvabpYILfRe3MUK lNvNS1sKBjMABeVz6ZvawXx GE6vVP9 WOVYFe7EKZ6os5QqVrAnZKY aJnpDSHoEG2U4yFFzS3Rffh BMW1V3XgQ7mZTsE6XflACKz UDsKw9I HCVgNy8coDUgIAPkVFkPFBr jLqghf5ZPqTWdGCQdRc9WYB R1Z2jhigEkMpQII1YnG20jy F3gTF8X gX4QynPbIY9af0EtgylQA4S wdpAVYIMquskylU7yYJMwMC KYEu8EkBA4kIRcDxCiHsjtG CAwIDAg MCAwIDAgMCAzMzMgMzMzIDA zIFHgFecnEnIhLxD7RVIxAj ovIOE3OXN5YsJ2ZWTbVUP7C IY7EuC5 CMKcOFP4GZKqPGK3LVE6KrH yNzggMCAwIDAKMCAwIDAgNj W7ZFV1GsG7NwDeKvCbBBT1L rM8AQSt FPW2VnVjNiu2XBBuPvC2OWJ 2FyQ2VpIRLbBsYZk8WYG4Ex qvHAP6GgLvNxV4UVDoDVK6H jIgMCA5 IAFmEYH1LjufEKVrFRSoVMk qWUVjFTB5GYElPLS7ZUAvHL N9XCLnWSU5PHX6PCV6BDMgR UC4YHSw SbBeKxBkULJwNHDpPiZ5YcS RHFH7GGG9MbW5BZJtALI7YE HxDeC4XEAkAfh2SJY1ArG8V DAgNzIy UGOcNZI4NSSjHa4LTU8bo2T lMpsnICTrIhaPFUzPR2E7wI JcU0HxmuIXFCWaudgxuY2nG f4Tg334 EuPrRJTuPBSrAZbhPa2iEYd 4QTncI34AXm2WkQIbsyJkKu frJh7wzNBBo4cfMh20UsCoW CP3KzAx TtcbQDUzEJxpIr7IgRAmqY8 eZ6nbyZysFsp0Nj2RpOPvBO H7UIhvE8LzeHIfBojMS4h3W MmfS6Nd A1clSQ0mIzswJ7MyDXKaM8i 3TCcpZxyqSHbclXqgxEA3CC gBB2BrI5ExqKB0QFUEH1Oqi 2NlbnQg LTIxMgovTGVhZGluZyAxNTA QB06vzMkyBKMaEUQwItEQJ5 F8Q0hkFVGsCHP4IMt+Pgplb mRvYmoK CQKlKN0gekg4INnmBMbmHVN vIk7nwAigD2NofVvfNRJiWF W1BYM7uZNAT7Nzf3YUk162R S6Pgjzy jQ0Jg9ugGJWugCcySKTKC9V qhlN3G9dhenWhGzevQVXpeW AsBQVjPMV4An8LiyOkYSfxB dMvU3mf XS0tkSMjW16rrQ0yIw0Ri10 4GAMyC0NqcBCgdiN6QAQqIk hqZ6yoxAbdFMovFhp0LWFvB CAwIDAg MCAwIDAgMCAwIDAgMCAwIDA KMCAwIDAgMCAwIDAgMCAwID AgMCAwIDAgMCAwIDAgMAowI DAgMCA3 MjIgMCAwIDcyMiAwIDAgMCA wIDAgMCAwIDAgMAowIDAgNj E1RSEiRKUeEHXfLWQtOSNvO CAwIDAg MCAwIDAKMCAwIDAgMCAwIDA jGLV9XWGjAORlYXAnWLDdJK OmSXN0EImXGoHnPNRzNJHgG DAgNTU2 IDMzM10+PgplbmRvYmoKOSA xAV3uzit8JIruFKygYGTiUw 6zxNEut6EtvHZ1m0ZXX5Juy zBTRC3v JB1FkkbivT4Xk6zwFDFAF8Z cFOtoYWOoNl6Io836LlBotG HoLXJaZLXtZrd4CWRsLBXgC TN4Fb5L S03jo7GophsIrNU8lRUvWef VL2F7VU3KGDm6Bb5JmDZxMc U4ZJjvBUVxvRrhQC4bdIBcN SiuC3Am QKRzL7j6DIvnUqnoSXjruVp cpTM9DHhVW1ElM9YmwRL3KQ JNO4Zda6SihsBkNYGnHoyrC GVhZGlu UfBfAMVOB07usTmiQUEtTVV fNQRYR0K5N1agWZSvIIY6HS o+PgplbmRvYmoKMTAgMCBvY moKPDwK U9L4mWDgB9HfsjBWV3X2MoZ 2zFPbY3ZerLELdIJuVr4BGY YaBu6cmRJpZCZeXRydIt9xT Z8ECs0J tBKgkSOhQQPwSwWPA1lln4N NjUGtIKKpVDtzMD3ur6Hscc gxU8oajdGms6xEijBcOJuqI tweLh3l nRLja2VgiDO1p2FuEEIxHDW FR4slJQGdcaUiGCH9BOHeDC YxFIR1DBYqANCpADAbWhZbZ DMzMyAw QKIdJpr2YUIUNwn4ZFY6KGP hRUR3ShQ2HOMtWKH7IUU6Hh A4GRUmTZXvTLKsNKWxBzEeH CAwIDAK IDN6CTDdPKC2PnGxNpHeSWs sIhZ8RfUbYdA1LTLaYBF7Eu wuAkQkIRG4YYT0PYFoQRI9V TEgODMz BcgjOhN0FjzsGmU4FJh8LDX 0QyApLrL6HAXyMIApADQlNP I2AGCpPCQkUGOzQXJsYmCnC CAwIDU1 PjE4MKSnLFU2UHQqPJX5GZM bJkEiITAoIFY2PQUxDoj4PS IgRBH9JXO7KLM9GKfIAtOyD DYxMSA2 QXKoNGLiJZciEUM8GHFeLuQ 1HGJvRAR3QAv4QCZ7YTTyFF U2XT4+OpFnCX8pssjnIQVyC V1ecem7 RVomJNMtG6DcGCS0PPH3Wq5 BXD3aqGphCxs6PwuiLzvrnK VyIFsvRmxhdGVEZWNvZGVdC j4+CnN0 zgSepGc90pHXoRYX8LB/976 P+7mKyW80iFT1osKF4HQOMq ZGIBVmo1pOdKidejziyk7QO iQCUhDK xWBHg1YCGje0IyAKGMz+Jag GKPaJxMd8iRY3s0SaH2VgCV IMPWIBA5Qk154fDIwU/+hM7 Tv57e/e q88778tl02zQGBARZ8AAMQp f6sV3NtrCM5KuHAFiaSzuTo vevDLDBLAVAchLHmhav/Q3v 5a0BTOz PlRL0NpUR920j9TyIZ+J90x qORW1ex1HMYKfsiz2abijdt etKggQh/eB1FhGqLHRvrNPK Ihdg/ef AAOhcuz8Y2F2sbo900fEjj5 EztGJ42s2S4QCfK0d05FkUy wDIS3wb0Dx+7wZvTa5CZL42 4U4+gnU 5riPyOwHI7IOWfUb+EAewsR EEJbb3GQgcMK8xfJKF24fr4 GRRuD3JOQH6an3IaKjbFP5Y ITL9MGh Td5GviQqK6i3UA8CN9sEZVj Jhdjr6Zka5uo7YgKUCEMg8A rK1HRyT8mle2ZzVszYw6D3O gx9mQKI TyJUxe4HZC8rDVusj+BD+Ct ZHGBwMF0fQchyiDQuLxrCcy Zg37kyYP7tARRvXZZfz7kFc USnYtSV sSjlcPW8KZEsSbMZtKguSVL UTXCvTDRvxYmwh4MjdegLPc 7YLnCzDgz7pCtsfRGeF3Q7E /pRrtBs UgL5ioA2XPJv2WmQwyLOHn6 6n+3RVIytgAppoEMGTMGqfL hGNeZcDw/Ub5NtPUdIkpbk5 INO2A+H JRMv8Hh4CGpEQ+AadicWhde VTwrJApQgyiqyiWzFfrTeJD uBG8CckOP02oqm33FkRjsZF i+y3EKf psfp2/Qd+jG9SD+cU5kv8xD gQz62FbocWXJoqg8Ac+ROeb /9cgaVEdXJ4yX3pmrrf5byb KUsU186 zvbNSuiylLGvHN5RQCnXMYX b1nQgR7ULbW5wd4Rfe2eE+u AzXgfKwGAlXAqJl/jJfJQgW UhCZAVZ TdYNV/PjuL7aSberkdvHFmS nyR/CU0oxmddrHj2n6zP5id hcuoAup0/Sp+uq4ST1ew29M U2URhAj Y4IkSMMZUE8dXePdd+RHmSc zutFCI8Cp5rR5WzyEtUoP66 BZ3hitkTy7NndcfDt3yglIc qFMVaaj NCoPKZuUVmUvnuh+pV+Ntro HcoirD4Nb8e00T/3Hsg7VSD IrgfMXABSjAFLti00br+xT7 ptglj0D lBQ1O17PORqqirp9JFaxg1W 71BxII+ksJKbujuSThk43Va 4ajQlrU4+OzSXjcad+D9ckG 0QTE2RD eVobtRmxjv2KA9H3tCp4QEt yeuIjE8mNRgTeOmwxABtrPS /q45HOyh9X5HuP7YTci0ARQ pJZSis5 KOvqD24KFRWbfUS3R9rxTsq SWKqyanF0eRIAgvTK8VQ3wd gHTfBNtNdaxBcMKnAn3jRY2 PZ8tVMH lsoNB6HtcEtWxZOTKAf0DZq 1zVKz42aupCPtiPpsJUARYt 7u6PEwE6YnXTDgyK9F4zigN 1QmaLag EkEeQcWCigQVClIFyYIkQcR zD/MVpZYT0mF+x7oV7MrtRz RXhL4WZtSleNpRcCo0wA4BA dBGIW6r bCZzLYM2Z1DHZy0NUcssEGQ 3SFoQoBQ7q8GICUtNBzcDUz 8H+UPE+4g+pIiNy1cahUyMi xHdiJcQ hQxtGxFh5zbeX30Axiu0UgQ FX45w21I1Jck7E0eeljpsRW tS1t7A (more content not included)... [facility] Please click on link to see report pdfCD:[id number] XSJiYpm7STCeVmLY1hnsb3R ZxfEFZnPBFdRARtCAXSHa9D K3mdidzwMHEpEqMaSFFh FMIoROkeivHxp1QkjBA3TXw uGv7NxbFliQ4kDVkJT244bY MrcaErS07ksU4zCXTrz76vQ r2BzhFj yUgpdeDcqBVxGST6HrJmQgS xMzExNDUxMzQtMDUnMDAnKQ o+WjxdohAeIduRBGPuCO1yo ag2ANpw NBjxPTRmQa9ekQSjt4DrlAI 1j1VWD5MjnxJVOX9eIB8Scb ecmF2Kx6bhLLThdRylHFTPA 0ZsYWdz SMXgWb5Gm983QqMujLKmOCQ 7PXKeGez8IXDgGUZfWSCiCD 2DG02qv7BrfbvEjMV4eQFbD elTS2R3 YD8AULm9Pi6BlEZrNzX2EUf jCOPuvOwvOZ3xgJZuNLKoAt 5RROGTZIrxmIMnOcA5Mr5XR OEyU4n7 ZHUqWOcbKOLvQH44AXsiJTd oBSWgJ4TpkTVhPfFrZq1IJU BnzV8tQWJ2MHdtEPO8M4acr GggMTMz RfbwNHKxV0jwsAjcXIm3Si4 +ZkFmLS4aeae0LJWek3SzBe r0Ud2ZaZDuYX4Tl433Kz9Vi SF8mICi DY8LphUjBPeiRRydDsEgYDL zjaUsQ7PlmNPoPIYnsMKGqZ OhwAASAVqiVaeli0VOlUZwW WDeGl8M NGN3Y2uwohKrEjZCN5NrM21 zcZ4aAQ4QuO6WtgDgTU3hx0 JshgbTF7CbtsJCVXUblghhb T9eQVHr NPQXHz2TtZJ8jAJtDaVjQwq gMCAwIDAgMCAwIDAgMCAwID AgMCAwIDAgMAowIDAgMCAwI DAgMCAw IDAgMCAwIDAgMCAwIDAgMCA wCjAgMCAwIDcyMiAwIDcyMi D4HfOsPRZ4WNVeARU3LaQzU ba3QVBk ZATvDAfqYzt3DkJrYpq0KWI 3JqIlRUqrZcV7DawnMMZoDS AgMCAwIDAgMCAwIDAgMAowI DAgMCA1 VZWkIrGtOLZ1SvG2LOSqZKK 4ZWErUdG6NRKtJbVfZQU8LV XjGGH4LiLvGrurEXe9TwEdA OO9ZQKx KvZtKUSaOks9DAB8RrPwJuF tOfGqMUD1RlKpBKPvXUH9WX 4+ZvOaQS4oxij1YKVcp3TgY kb8Uc7E vHGoSW5Vx170XAEkV0LneDF upjdeZc0qbO5jhAHpZ6RnoT OwKYIzlYTJXIocEirvL2YyR pLPV8Xj anQBXi96SZkiRfY9ZD4vEiK lKdYjYETvDXZ0QImiYIjnp4 hwJ0tbVCDcBWS0FJjjV4Bvu UggNzgK N7J8ZB1UKAk4Oj4NyDUpsGB OzaopDCKgFi4VMREZWImghJ LpFcQ4Qh5UAXNjO3s0CBAzV QovQXNj MU06QSaiUYuhNYFcP9AgsSF xYhZsJt6YUFVzfN7bCDG8KN jxQHS5Q2novNecUkUyOPtlP REzT0fl xDygESc7Rg4+HeNdJF3expf 5YHBnm2AsUqz7Eq9HnBEdUZ 9Oq147Ny1MqKY3uMRiGN1Mj nVlVHlw BSfiCyKqYQFjryLvZ5KuoHH hKSJbpADKVVywPbhln4MOxZ JnFJDhFk6RSZU8O8pydhEzP sANR6Tf V83pqH0zCA2HdC3DgxRsJY1 kg4HmdclVG1NfzrNTDCYsrf dejQ5zCSorBZLNWc4JoAG4g HMgWyAy NutbSEArZWL7DoYjVXk0FVX bFJZiXyCcEBYhEuWoSVU0JX OyZtmeXiKfSmQ3MZNcByyfA JO8PDT4 KeW5MFMcCMO7LYF4SjR9VTA rXAM4LRCcAUVfCOOaOuVvBW GpAZa3OzB6JLH9ZAQcBZV0J jIgNzIy VRptBaL2CsZuCiC6OGPlXVV 1JsrtFiIqMWI5TGJ4ISHzSj WlIXPvLFL1ShHUMmFgZPv3Z LA5Vzrf VYI8JjVmEuI6OLJpFQZ4CwU yLeS8ETp1XMUsFHU4GxCpIZ AtIWRqCxYaZDPlUZU3OcE5T TEgNTU2 QNAgZFY1HRIvHgRoXENmGCN 3QGPlFam0ECX7KKL5DEJnLp a6JRs6XWd7LADkPwHvWWUbS CG8VWNe Hwq0QZS6CvQlKkGwXdLmLUZ 2JvP6NxrmQEC7FFL4YgJ9CJ SlKj4HAH8zf4KhQlikOPZwA moKPDwK W9O7pOYnU2HfusMOKJSjawk eaJ4aZl1Kn609IkWiFWMtNC AlRTyRQCkoLcevG1LlLjDPQ 0ZvbnRC Hc14CNqfVyE0MJ5oZdXnUbW tQTJcBTBlWQsfWOwkj9vmU9 wnOUEgFSV4OImoV6IocYceV jqHG7Z4 VD9WMYm1Ln0MmFMbmJRIskg kZEBpXq8USHSWWEilrCTyGq V9Na3BRKZoY2r2VAUrCSewH XNjZW50 HPokDKmpDNPjV8AtvPAaYpT rMy4EZSSejK7fUFI4SXaqJW B5G7ggkMmrHzDnBAthHPBwN 2lkdGgg NDQxCj4+PhUoRD6jkqjqYIL bTY6qodc8WFapFTrmJLSkNp 5bpHnvN2NzzFayVWXxEXT2T SA7mEQD M9Wki1MIu273KI6QltszsB9 OJp4MkBZalQSwRFJhCcVSE3 mnb0KQlCZqXUTtDOrsEV6pk 2Rpbmcg O2fkbwNna4rCqkDjOEcuHug rZz8kkKNdg6DzcAS6v3EaLJ CeOLVDN7tdDQSclyPfUYO3O CAwIDAg MCAwIDAgMCAwIDMzMyAzMzM cGRV3ZPClRFAeRfIbFpt6IJ T5BtD3EYZwUMC3NFK9NyK3H TYgNTU2 GAB4DnT0EZUwWNZ0BOV9LhV aALEjBBHtHjLnKXInUQB6Tb C7PiyaGDO7CwNvMvZ7IZVmB PG9Ebki FeXgUVD8UXGjSNRrPRG3MJj gRcv3GyBlTfk3IFG8UiZgWV mtBhX1KzabWbOaCUSnKDK2C DQgMCA2 NjcgMCAwIDAgMAowIDAgMCA 6SHNdMLZ6QNEzOMX7ICYiFB S8TML3VAT6HXYuVNX1PQUjS iAwIDUw RTMwJeFbCVTmWaP3OwJ4ZKP iAAM7UTDnWoNnXFMuHQEsXx ehEJN5STGdNSQ2HjGaUYLxJ DUwMF0+ PgplbmRvYmoKMTEgMCBvYmo FXLaBF7lmzem6iEXjTCDfPu imCZWoD7NtOTX4BnDTI5Dea HRlciBb R2HlBCOeFCQau2YrHPw+Pgp qrPQrZH6TpAlERF8eGGFKT/ e+j/j7h5KYm2jYyzzsDfgCM AIkgRiW JUfZQ92HA6GRHEnwRGOlBoK QyoQCgpvQxhJstQIBRQGJvi JqGRBvVuYYrqF6pFYFRk3eV CxxximU NpySf38QRfLwBj/oTO07+e3 v3nPOO/ecc+/wybFOPSv5nR R63do1+ks5hw+c5xnICe3z3 eQh9pik ioYtJONLQx1qXs/0N7/YuBg c7whC8vKXELJ/ec+F6Tg/if wVk0YTsBJ4PbPhUl3FBz0Xt 64nrSoI JPq402VozCL8TI8GLZCXRAK 0q37Gv23UyjwVvzI62ElaF1 3og7hhYaQCNL/V0HzPW+OWY T9QDMKn 86o2spf4enqtrWKQW0YASVb W4XZl59v0kWTFCW12M/hAHs YPZUZ3foGPVbbj4XrrDM+98 TxrYZ7u NEVQi/Mn8U3OWPx6LkMzbaa gbRZ/D4Fh5C5lMk2IE3eRxG r5cjgFys7XQ+k9dP3oGedag 9BnA+xC Wy+v12tn9W9eqwkpQOll+YT 21efTPa5+gucZ3x0Q42/gQ/ coLBDQRNnYdh150DzyEmGcF U9nYIyx DWzrVk6pMPbUArdEQ6zJp6A XbNVA0cDlFG4X7ZUyS56H94 xWOoWC6OFIGDZ99srgPf6jD x1HLcNl a0JNNSaDUbvXkQQfHRF8Gb8 KdYsUs73ofmCYc+VLynLlAE qfOp/e3GJHsFXEnoJPYuwJj ys3DlXl QY0LdkVWeRQMmI19ApkJLfn PhyECJ+VtdY04DksyLcCeWn WVtR7HtETVRZctcyualW078 jT2kVNq m5zA/Z5s18Z8nUeEW2Lgrqu Tk0pX1ij3JhlrdYf/o19IIN upYPVbtQz1ML8K4oHdajulX nm//JH8 kUIU0+sZmSro9cf6jkOmJ5z WfqHt5F59br7ieDPrNQnFCG uVbzRcXXpuB8IpQKmnWTeMF NvjJ50N jzNfFFyZdEz6zMkBFSgAWjK MNV1ZXEr6PWopCZNBjZq0LT 8p51ljsW/V78PbuchFge9u+ qroXLqA JqrR9ihmH/UISFNr8HX3eY5 Kavitha/En3oaxZPbYXjeBP/kR5 gzHCCZFWgbZuf5qT4lm40Lu u+Si+X5 8n1Y+8j8zntZq6CpfxYyWGM wtsVlKztntXVzS47omzMadh a9Tq5exLWM7li+kUo8DJ8Mb vodD7Hx tM7pu8tNN6cLsWwnR+2obZZ txR2JRWaMkAR31ztw4cB83Z /Q+3AhIWGq1BK1PXTvt04hP RrNmmzL uWeHgm0q19Mipt/XJBtUymd hgbQImpRaKYpdhkNktbyZvC q79s73HEaMGxgjkH16hMOeC 0Q/6dPS EbaehdinmOkVaZfSyCaSWUo mZYJr4yR9suCV14xDlT7GJz UkuZp8YKuDrcDXf6gIfYWye eqpk6om cTEW4qB1chAqG+6gU+mTtsF LBDDdZH2d9SpeiLuVIqL0/V rccRvePbH87LYzOrvSDtetB qQ7VGdg sYDDLxG7oHX3fjRMXdhPIul 2oBJBHkHFgooEFQpSBcmCJE HEcw/sB7yiqK6ispi4S/Eq4 lESk4bv fRONViJNoQ2ItNy1eWsEHaO pSkcL66WMzdvQIWSZHgsi8P lBewV5 (more content not included)... Normal [facility] Please click on link to see report pdfCD:[id number] JUDtFpu4CGSjPrJV0vpmb5Z MugLSWbVAMrSKSwTSINJg2I R3aatalpAZGkAeSgFMUz CKKcDVstcfIrf2TbaVO3AWi uKh4VoeZpwS5lUAlAF299tJ PfepDwH24nwY4vPCGoo75bB d7QjvYa iFwisxMsvKWdTTO4KyHlWaQ pGhLhLRJ2ZSZuUZLdRNGiYE o+LjqhlxCeMcpMIYXpKF0nk be3CUro YNpoINZnUn9vvCJai9FqoER 9c0QAR2SfxtJLFF1tRI6Npr bkiE5Vj2urBDPwrUmtUMLTD 0ZsYWdz VISoEt3Az875NdQcxHZrQKI 7NJEmXaj2HFStNPTaFDXwGQ 6RH53gd8MicbgVeWR9sOSrK avHL0B9 MG6BFIq2Ii7QoESuYfD6LHl tTKQsjOywTG9tmITqILJbNn 4ZDAJVOUbajTRbUmY6Uf1EE ZGdT6y2 UNXpSUpqEQWsRK94QRymBLf yUNQfJ9UxnSUjOcTbHj1GLM SsnB3bLTY3HJtbAIG6E6jzy GggMTMz PtemLAPhS8exxCdaTPq8Vy1 +CmRyXR2mwxk5GTRvb1OgOi e8Di9UiLJjXR9Ia999Rp0Yk QT2pGEm DT0WacHmMNysIGfgKkDdVRV zskTwQ6NhzHCcBSUsfSXAyZ JbyIXOVLoeUjqzu6GCyGIpU LNoVv3P UTF2C0kyfaTcHiIWI5WtY16 paN5hLY0TqL0QudNlER7hs5 QjpkmMD6DwehZNZESjrknor T7aKGLh GSONKu0DcEQ1yZTiUeHeAuc gMCAwIDAgMCAwIDAgMCAwID AgMCAwIDAgMzMzCjAgMCAwI DAgMCAw IDAgMCAwIDAgMCAwIDAgMCA wIDAKMCAwIDAgMCAwIDAgMC AwIDAgMCAwIDAgMCAwIDYxM SAwCjcy DpBwRIP1XcY7DbmjGMDlIUU gMCAwIDAgMCAwIDAgMCAwID XVZURoYDYxWAF6OHGeOYN4B DAgNTU2 IDMzMyAwIDYxMSAyNzggMCA oSEW8QQTiGqDtTYM3PLYuDI DkKAM3MGK4OOGvCgIrEPHkK SAwIDAg AQI6NOKpNm8GTJ2cm6LvGyp uRJZyIygSDHoXO8X0wXIoE3 CwpsYMJOYszqazvR8pWv0Pr 250TmFt NTJyGFPoSQgKQQiuRcxxC0D iUaAXV0BpnlLWWq65FSarXh L6ZT1bEuVhGxPcZOUhUZAxO QovTWlz o4wnC7brFUCuISH6KBbaX2Y bgToiXubZB1W0KP6BPHv2Ku 0LmCWfhXMXlwpbWJCpYu5RJ XBIZWln bPWfIiE2Fa5IEDIoW2r8SYZ qZTkjNMKxOO28WLucYTjzEO TkY5UvjFWzLpPgIf9TQJXxj W3eOWB4 VTamRJM3A5wmwQmmVeQmWMt jGSAmB3hflPrdXUEbXt6+Cm YkEX2djqm3PTQlz0CnNsi4C u6DsVGr AO0Zq951Sb1TmGM6nLCjGQ1 UcnVlVHlwZQovQmFzZUZvbn YbC8EmiKUdZGYGF1XcxvA1J 2hhciAz MgovTGFzdENoYXIgMTIxCi9 UlkCbIEfpTfClD6hoVA2nrJ ExR22mjK5dAu8Jz793VASoC 3JpcHRv azR7AKMaDfvbN6iaoMvvAEs zEad9KEMmRFDxCVOaIRKkKJ V0UOGuSDHeAFGwBTGeDkUfN sL8GJCz SsbwAJC0CBH5HbT8GSTbNEB 1KAB8IhT5MVAmNXX1UOH3Ni C2VRGiBCW9MIK9XYNiUVTpE AowIDAg ISL2JfshOHA3AtXyAyTtWMT 6YbMqEBp4YYLwUPO1SZRiSB D8NeJgIZdzJsu8CoHnHqj7Q HO7LuDk MRkcUlF8QioxWyLnIKgoJsT gATp5PPGvBZYhSXOwODFsBS bpNTCwZCN0VIJkZFC4OKRaY LL5DUVs SBO7CZJ9MKP9XDTyFOG3CRQ yMiAwIDUwMCAyMjIgODMzCj W2BqH1EGCoSSI1ODQlXcGqN DUwMCAy PznoGYV4BAEpSPT9PzMtSTG wIDUwMF0+PgplbmRvYmoKOS OcKG3qccc0MKhmIJrnDYScT u9hdVCy r5PkxEY0x5DFJ5JbtcKQXW7 gVF0RxpyluU7Uh9fsREEMU4 LpXGbjJFMkLm8Yk380PnVwa CBbLTYy IDPiRqn2LYBqDZXeYIT3Lh8 IR02zd5NezigGrAP0eZFyXs wVO1F1RQ8TGNs2Xi3HoFUyZ gK0CLlt GUUmwOetUN6xvNHhQQlqL5H iBMSuZ3m1UTnaCimmFFsffK udyPL1QHsGU2VtK9DhuQP4U SGAH1Dd v0QqohXgFJJoFzwoGXDhCOn iDqHgXBAIS56uwLnpZDOkAB RaVUFHI7Y6F1luNVGqOTO3Q Qo+Pgpl bmRvYmoKMTAgMCBvYmoKPDw RX1G2fSNhY3IdxjGQI8C1Ag H8lYRkC5TcoCMGjYPiMz8SV ZJbXx6g sNGiQJIaGPvpFj7lTY9LUo9 HeXQeeNNmXFJsJyZMH0gmz6 CAuVUfESMmLIsvYL5bk3Ell mbvP3tm qnYxc0sGvbTmVRfaGcvyIp4 oiVBrv9SzbOS2j1DdTHIfUT OTJ8eyJZFatdYcPMJ1SCVrK DAgNTU2 IDAgMCAwIDAgMzMzIDMzMyA uGMKzREOoOaV5HTCzOZEsYJ AwIDAgMCAwIDAgMCAwIDAgM zMzIDAg ZIGzQkLxPEXgKZslYeD7XkG xEcUdNTsaIzQrYJEdNSU5Ds jnXcFtXFA9XBFdZRZpEpVgZ DgzMwo3 PxAkFmz9ZZF8FyF4EmedIiN iXJY6AaN7BKPvGyOzTKFjAW J7OGUbBfO7QCRyDSLuKGYKP CAwIDAg HTY8GJOdSBR8SDYtHKC6AXP pGzKzPZPhFKD4FCJeSst1RN CpOTC5MKS3PMX7AIsFJoGkN DYxMSA2 YWOtJEFzKRkiHOR4EJBfKpH 0RCCmJEX6EHj0OSY0WAViAH U2XT4+EkXyKP4evuijQXVgG I5shcp4 TTrqSHsgARVqPx0ltXPzz3H xoYW5v0UZY5VparLPGI9wHU 7IfulhsJ0XkGPgkIPFNByuO gjsQ9Yu XmTQO1VvfaJEJo68HXnlILQ 0CT5vSoKuBJI3TMU4AYjmCi 5RkGWacB8gU6poiDfiTij6O w3KlOCt EIG1SOsfU3ZotZSnQuuWD7t 4IZivD0IiC5yxHO2yBebjK7 MaTPSgG9u9EHusGssvSCrex WdodCA1 FUrUO7MlV5WhkWC0MCNUT4K ud0OcqbDxNBEzKxklLFFeRL wlOeQlJWDAH08kfHnhNRTxD DEzMzMK L9Q0Z9euUZAtOCT4WTs+Pgp lbmRvYmoKMTIgMCBvYmoKPD hRW7J1fVOwY2EawvICT5F8G pK6lXBv W3WigUOHnDVtMg6UYFEnOw3 udCAvQXJpYWwtSXRhbGljTV VBK7AwhyW5E7iydxOlBnsnT GFzdENo FLAvHHT0Kf6QvwBpTZucZoM vR6rqBE3azBWwZ42ymG0iJo 6La832FKJwT8QctXIjdhGuM SAwIFIK V8kkSWBhagXxHAO9KINjTVH gMCAwIDAgMCAwIDAgMCAwID AgMCAzMzMKMCAwIDAgMCAwI DAgMCAw MFPrVQMfTFG3RlFiNgbyHPQ wIDAKMCAwIDAgMCAwIDAgMC EiCCFwVEZ7MtGpTIMrRZPfN CAwCjAg RAE7XjriXyl2QNyuLlL1Vjd xIOPgCLWjENJtFDB5MgQmDW YuXHEnXkRqLPLrCVH4ZuBhS DUwMCAw SNM0AxYgYUYwEYRdFRMeIQB iSyMnPBiaVVM1HbAhZXZxWn MhEAFxLtz8HJZ1Nm9+Pgplb mRvYmoK GFWjOGUhXfyTCYlLB4vdjjx 8aDSmGXHaFfpoEOPaE3KfQM F1DuQAI2TjbCHtkcUoZ3IqR XRlRGVj l5FqISo+OwqphITwIR4JuDt KGA7jEVBQC/e+j/t2f9MRx5 wCecsjAdmEQAIkgRiWZHfJR 55FW9CM KJsvDBIkAlIQyoQCgpvQxhJ stQIBRQGJviWoCWUqRcFMtb K2lAUCZl1hZCbawzuZCxrEw 99NMkCn Tv/oTO07+u4i9aJCD/ecc+/ bgoEJTTa8tMF04ph1+ks5hw +n0jiDVk9z6gXb2pnlkyDnN NFHTh9v Wr/0N7/GmKdu1puC9wTYMFS /ec+F6Tg/jntKr5EYlBR5Hu ZeCh6GNj4Pn11ybRpRFKk65 1RyrLS4 BR1LCGTVAVQ9p29Rp86Wpnb NeuY89ChqB75fa7spJkEBZX /V0HzPW+AMCG2NOTEm68z8z sz3dkil hYAZG0XODJzR4IEu71g5pIS QAR20W/gUMcBCCOM3mtTRHq rr5YdqKP+22HgyTL2sJLWEu /Za9D6D KCw0AwBcdfrooKV/F5Gt0T3 oFc3OP9wOhQv2lvqDkt1ID+ u1mY0zAcbjq8RuM+xCWy+c4 4hz6X3f gmtkPEor+GT93liPPe9+xlm H2l0E29/gQ/grSSTFJExOok 795IirClWwDL1pLAkmBCplM a2yKHdK SnaFO4uTm1UNoDVE6pGaON5 X2JIyB24D61iKEbPM2KUNTF M89augTa9uZx4MSmXtm5EHK ZlHGsmT vNJvPTH0Pm6LiGjRx21mepF So+VLynLlAEqfOp/u9JONpM ZUhcKNUtcSviz2HnEaCI5Uc qOWbEDZ rK80DuiXHtfLlcBDA+DnfE0 1PbtxHrAaDuEOdQ3IwAPOYB arcnkzfU618eO2yBXyu8cD/ C1f58E2 vAjHP7InyuyRf5cD1du5Tpn xvUg/c47NLHeiLAUapKn2NK 2R3pXe (more content not included)... Normal [facility] Please click on link to see report pdfCD:[id number] EYTgAli7NYZvOcHH8jrbg9P LzpDPWnNUWeZWSnLUHGHz7V O5qvdhqsCLEcHvWrWFKh AXKbOFjfzoTlh1ZvtUE1GDq gRm7GwxWteG9nNOuLI668rL OnejBsB91vjI9wXKIsl98mJ d9RsvDm zBktxrUnyNTmBVM9LiGiAkS xCbPeTLS2XzSnREChFOVzMX o+GzfscpWvDnpDTSCqUS3ap kv9SKww DUuaTVTkZa8ymDVyc5GrmKP 0i5NCH5FlbaYGFA9bVG5Gij jnqH8Kt5oxKUDgmRqkAYAPB 0ZsYWdz WOQyPq5Gz973FdZhuUImBMI 8HPZkVxn5AKFzKLGkYPZkFJ 9FC35sx3QmlmjMcYZ1mCKlG meAN9Q2 KD5OXBz7Pq3UuIObOfB9VRe bRJPykDabWI0eyJZmOPTdSp 1FLFHOOHlwyFDlIoW3Bp8NS ABwW8a2 DBHzIWdyMJSwSX31DYgtXLr aJTTjT3LctXNjIoCcGw0DXB OswQ5wIIS6SOlqZCQ0L8inh GggMTMz OrfoAVSvS5oazJkiTWb5Uy2 +GaHzSY0nwcq8HDCgh8EmCz k9Sj3AzKCuLS6Rs869Eb9Wi AS0sPEl VT8XkpIzUIiuTYzhMyCxSLM lbdVnA8CvaBGcFEVocWHZoB MhpFVZLNsyRvmbd8MJrWVcA XMlVx0C LZE1B9uvvcBtGMRPW9UxY69 krT9wOM5GvS8JfkVqDH1ls3 JvfdkOO4UdgfFUHUJutiugr T5nLGGj WPMVFr4MxBX1uHYnMiChTpv gMCAwIDAgMCAwIDAgMCAwID AgMCAwIDAgMAowIDAgMCAwI DAgMCAw IDAgMCAwIDAgMCAwIDAgMCA wCjAgMCAwIDcyMiAwIDAgMC AwIDYxMSAwIDAgMCAwIDAgM CAwCjAg MCAwIDAgNzIyIDAgMCAwIDA gMCAwIDAgMCAwIDAgMAowID ReXZU0RPXeAOE4CZZoDWE9O TYgMCAw TETkZzi8BNKqDIT1VVNeVUx 5TtIiAJF2ZITkFYNxMUU0WL D7TZGzOdLgQG1+QeTbJL0ov xf5VCRx x7EwFzf6Jo3WcCUgRW8Iu13 7GZUtW5HieGVfonjfRr8yiX 1fgATiF5DubZDdAASKR6TrL WdzIDMy El9Fy018OaHjjQFkUCV9GVC pPdC4YNLiRVArYOC1RE1JY4 7da9TdezbNyND2iJJpHraWH 5D9CR6D QQh5Hy2NfQByRzE3QQexVWH zbFemPQ0pdPZdBUhjA5AvGM PkJ4y1VCbgYnidGSorkJhzu TO7VMuK P0FcG7VljVU7DVIMC5Ikl9Z lbnQgLTIxMgovTGVhZGluZy NgCTJEY15txEfbPYVwZUUsF YPLW9E2 J1cmYTAqPOH7VHu+PgplbmR kVutNTUGlAM8dcfs3CTynFJ fkHGMaCa2qsPxbZ9QkbShlL SAvVHJ1 TNI8uZVHH5Jyu0ZNd457IQ8 TjxhmiF3ZHy0ZaJExeGLwYS DwEjAWN4spw1EQuYFzPKLmG XvxFM0e g8ZrdnogD5iapuObl0bEcwO gRNyqVyupRw3ngQTrq5JkmL Q3f2ZdYrXpMFHNW2ncJCLoh yBbIDI3 XEAtUEBvEYZeDFp6XXZgKIP gMCAwIDAgMCAyNzggMzMzCj E0LDTnMjenIQK1LTW2UzK5E TYgNTU2 KVL7RrD5CZXfIDS8UHH2JsC 9TQVyOZQ1YTF7XHLoQFH6DG HmTyO4SKJ6BAWrQXW8LjeaK yL1SHxq ItE9QpCwSdY7ICHuMLXdOTz uGuLzPSZmYbI4REE2AwE0Ss AOKcXnPEh4TQM8CiurKji8J DcyMiA2 GxthWvNpMPljGsNbADu2VUU tITI1RmXvJWMtYEWqObSqGN EoHRF8ElE6MYZsXJXiFGO4N eG8MPHg Wqt7DMY9HrA4LGZcRwKjTNO bWFUlTQUfSzO8YrJWHQQ3YA D8OpG0PCOrXAN4MHLfDkA2W DAgMjc4 TJN7LeK3QANpNbLjTNIcLNP 1BOUnDf1IYW5np0IrIlwhGV WuHnnVFOuYA1U1xYCkG1Zxa nREZXNj pbyhoJ3nWq3Lu368HzZiGKM zEWTqGBlaLn3xUA9ZGj9ZyI CnamZeMhdlBl9nkLICg2dbB f91Ttru GUN3WfYiRGVqCNAqDHGjIy9 LqMSbhM0hS2lwkTqvYbx5Jy 0CoQVvBIF6IEimG5ZxjENlI hnYW6w5 KZsiU8RiN8lrVAGDE4OjyWu kkGbrmNH5KGAPN0vCHMtoiI JnAPP5Jn1Vw8ObatKwSXG0R t3JLFCe LI48RV0xZIWWG7acOMHpsvr cUOWxJz4LJKcDtRV7aRBgMC FoGa7YnnsHyNN8vOQ5DgdMM a1XMK6x j2AjAnClWISil9RxIdt7Tb9 KqELjTL2Es788Tr6EiGK4mO XfWH6FrnXhZRidWDbsKfErV UZvbnQg O6CbkHBhUTGeqWNLQJidHmk nx0EXoAEkLFDpVf4EEUG4B9 jayuRiFqSMB1HoC50anK4bH Y1YlV5K hhGhWF4js3HyzzeTC7FkhbF UGVBtxbjykX9jQGgdTXEAGm 9LwVO3kTKsEnVcCnsnCUFsH UK8KbMs IDAgMCAwIDAgMCAwIDAgMCA zMzMKMCAwIDAgMCAwIDAgMC AwIDAgMCAwIDAgMzMzIDAgM CAwCjAg CLFhZSmwXgE1CuAjBjIuKKj aSvL0MfgjLvFnIGy2ZRC8Hg PdOpi9YQBvARRvFKydRxn4H jIgNzc4 QAZ0HsHeIVtqDeC5XyyiLgQ lVWmjWqFbEHAdNRU7OfnqGM IaCYSqNSvhQJCoMEH8FQPuY jExIDU1 PxL8UFIgOLH0DEAjRmNoQJD lWWAoMfkiCVY6MKHaUde5DK n6QRr9CVJdGxJwAEEtZHIcR TY1XTC7 QTYkMgZiPHCdVZD6LWItOPY 7RXS6Nr8+PgplbmRvYmoKMT TaEKUvEcpOVLgXE1qgmav9m DEgNTAx UnysVBYmK7BgDCR1ZfLCP7L qyIKfjaXyP0TlVDMgIWCst0 RlXQo+XwkvrBRxOF2MiKaBU J3vCBPH P/e+j/u3u5XIq8oKgzucPol GCGPnhSkBRAsRU69AB9OHRH svDBIkAlIQyoQCgpvQxhJst QIBRQGJ jxNyCIYqQdTOjgV5vEXHVh2 xFNtgefnEYooBb37KRoRqUy /oTO07+c0l6jDMV/ecc+/bj wABADu0 bKM80ag6+ks5hw+p5tsCIe6 i5iBm6krggzMqZRAWMy9wIx /0N7/HnWoh7czQ4rFHZFA/e c+F6Tg/ gosDv9WJlSB6FkJyVv9FTv6 Sh84wuMpWWHy543AxcVI1FK 5KFJLHGLX2b84On39QurwGh sS09Kuy D15mj5kwEvNGIY/V0HzPW+O UFG3EIFWx59y6dsu9qxjpnW DFV9HXXJuP7WIs76z4sKAVN R20W/Barillas HaNRBCO1zjHQLrxn2IncVU+ 09VekJJ4sSOPTi/Yd5P9RJI b5QpQgywrlwUL/Y7Pf7E9uC r5DZ5kS aVm5ucmCjj0OI+q6rF4eBoy gp9BnA+xCWy+k87xf6O8lwg tkPEor+OL87cdEZd7+xlmO3 h2Y78/g Q/khBANZYZoAsa436WxeBqQ xPB3wUYcbRVedIz2sSRkIZq bHH5kFs9OFcOPF3oAfQH1O7 WXeG72Q 35qRGhYF5PZMLCJ17lhgMn1 uAv4YIyOvl4FEBDlSQshTcJ FtMFA9Uv9YoHzBo56hykIXa +VLynLl AEqfOp/q6WJOsLHKphAJYce Vnxf5VnKtVG0OgrMFuOOJbN 38HuyDTtgPhyECJ+BukI60J xfgGnYn BqBDtY1NaKMJDDfkdxztyY5 77bV9sZLce8iA/O7k28I2vP zFB1KvvjuNb9tG4an7Hshou Ug/o19I ENgnDQNadSi3FD3S8jQxaur kTnm//KW1jORG6+pIdEzl6p h0cqKkA6qLurYo9V09rn8kq GBdWVhX OTgGfuUkQXiaF6BuGXibDIa FDEpxD50RspSaRMtFzFu4zH oXZMuZYtKVFP7MGHv5TCutR CLHsZb3 XO6s02qmdO/X08NfclvNhv9 h+hvgQArHWrbB2csrZ/RFPJ Ga5VS4bD5TVn/Pn8oufDElQ UmjJZ/k A0zcCMOGEBkpEfl1rL4gi08 Llu+Si+X58n1Y+3y0klnIn7 IqkpKhTFWmozQqDymblFZlL 57ofqVf odm9Lp1ahCDF4ub+fKa5PL4 GwguvC7IlhS7xv5lVE7lJnR vsU+7ypSGvbF5EDDzErSM08 zwo8eB8 3W/Q+3PbJAPg2PF2NYCcb42 wKGaMwkeFwFhCup2i12Iyxu /XJBtUymdhgbQImpRaKYpdh kNktbyZ qKk90p93WMoHCzjktM25pMI oM0Q/6dPSEbaehdinmOkVaZ iEiLsPYPhcIAFa3kQ4uuZK8 7iXlV9W EvCbqFt6LBqBfrZBn9qBkWC akazgs1zopBLJ6fO5yvFnZ+ 6gU+eGhsKRCNIdHE6c6Afmf IgATzT4 /AyftDlgUiH21OBfOduFWnq pFsL6UEtwxFRBGjC1tNN8ln VIVlvEFrz0aNDTThTWgssIF QpSBcmC JEHEcw/yG8ottW4dnkq9O/E u7eBJz3kfbIKILvVWpB1FsF i0nDaACyGhCkpY25CBgsjTG UHPCzoo 9QeYltZ4Wp4CfDtcWzKOjBZ ICgKPB/lDxPuIPsRbiLOIM4 jRVQjS3AfGIX2HKjRCG+rLc hNtibb8 1m9s3jTK0cou8p0xjXezI5l hp7g2JwgorTlVs/gZnF1F5f NsrDZG (more content not included)... Normal [facility] P[facility] Re[facility] Please click on link to see report pdfCD:[id number] WPLwFea9FSJpVjGU1gyum1T DbrHYNqHSCbRNBvWQISHc1N Y3eahujrROWiVwMqCWYu KJVoIAacqxEln7MusBE8UQo pQd9PkkUwjQ5qDRzUL215vK WxycOvE08pkM0oPUSit94eH r1XscWb uKdusvKoiYDtBHE8XkTzLnK eBsAaIPT9SnXrJMRoUWHsVW o+KjseuaFsFakQMTCcKP1wy hr2EHfs YBabRANuOf9kyEGnp7FcfVC 4k5MBM7FtxzRMFC3sQD6Geg wagM4Pc2bnGTJfwOvxZQUAB 0ZsYWdz ASZbLx3Yv022CcPxnWQjXFD 6AGJvJxy8MEMnDRXtRPBxQT 6GM54to4WcyppUoSC0oULwR juGS0N9 EF7ZNXn9Oo5MzJKhApJ1TKb xXZAhdEniUH5qrNPoDKXlSa 4IKDYEMLdxkPXtDcK8Ui5DB AElU4q1 QMHdQUuzDVRdAX83UNgfWVr rRPNrX2ZbqVZeJrCnRl5KZM SawL0xURH7KUmeHCG2Q8due GggMTMz XbohZVCsC6pgrAqoNJr1Qr9 +JfHtMK3jfdq4NVSno3YiZm q8Ce6UwBQgBB5Lr327Ns8Ab BB5zURj WQ2GfbAwBPynZScvTwKqNTN lbeAyE5XbgRNySJIzkHYNwO EdwRDREOcfIwzzm9FRlESoQ LIbMe5X CGF5Q7agbjFaHbPUG0KqO97 zaN0dZO5ToG4WdsNpDE5lf4 HankdXJ0LoiuLNHECdhbgoi S6tLHKf ZXUOQr8CbVR6cVCjKcZbVgd gMCAwIDAgMCAwIDAgMCAwID AgMCAwIDAgMzMzCjAgMCAwI DAgMCAw IDAgMCAwIDAgMCAwIDMzMyA wIDAgMAowIDAgMCAwIDAgMC G8OpMoDnM8KLLhTFPcGAF3N CAwIDAg FHW0YzQVWRHuQGZ6CsPpQJS gMCAwIDAgMCAwIDAgMCAwID KiUCEqHoOhKRCnZLA0GlPkS NP6ViR4 FUDjOBS9CQXwCoF5SSUbURL qSnhgWXRbOZYeCIs8GhIuWR F2DNZnLoPrOERfPyl4PSN7U iAzMzMg YFUnFADjUNT5WEU7Oi6+Pgp eprWjVwbXSiQpVP4qlud6QN mkQIxjDKNjZy9ajFGik4Pnv GC2z9UY A7FgcfERHS1xND0HxfauxW9 Cw5ynMBHFK5MkVQioSAOyYa 2Vj813HzQjsMNgNRVsREUeZ fi9QVKw LZFtTZG2Bx1MT03bq6Somyc RsHC3wNIiUwxZF2I9LD0GSG z4Ex4MgLXxMtH0RRrjCLLol MwlRO1v tSAuJSruY2NgEBJlW2i3CRg lRxikZPpnfPtuzIE8BYnXT2 NwR5VsxZF1MKHIK4Xdg3Uuy nQgLTIx QqouOGVvWHsqTqCbKLDVQ01 qlCycQOOeEESqSFVWQ0O9N4 yhMNSdCJG8NCs+PgplbmRvY moKOCAw NI9dndd1PSqrZNdsUVRkNo3 erRgmN5WoiMtcWLAaRMT8FA W0pRIGA4Tsn8ZCx491EO0Lb yjmgN5L h1pxIGZYL0UchyM2P0feqpP zMgovTGFzdENoYXIgMTIxCi 2RwvCtHCcvImDnD8jwBV1ko EUtU36j lZ4gSr6Hq996VQXfV6CumPI asgW6ANDqGuwkS1sgrMwvCA dxPze5GZFaSGM9FSSoZJCpX DAgMCAw IDAgMCAwIDAgMAoyNzggMjc 5SKS7XsR4BPMnFDK7XWA8Bu I9BBBrCVL0TFN1NvP7EQOjE RE3AFO2 NiAzMzMgMCAwIDAKMCAwIDA uLiMlPGbkFjR4DwKyToKhRM K5DtR8LODgVdm8VWsfYoZfH zggMCA3 MhQxHsDiVMepPzw1RmTxXyd 3SDG0KnFuVCbjQkG8YnjkCj KzPLusHpKgORp5JYBkYXCoD CAwIDAg UDklMLOdXOO9WJStVfDzUQP 6LbB3ETJeTQC6FETsPvUvYO OpJRHhUxbtZRN5IYIjIqg3A Qv4ZXh3 NVUzMqEaMOTuFPB9YFEdErb 7RAL2RaWeLbRzHkFhQNQ6Zt I0WebbHIS5KAA7Mj4+Pgplb mRvYmoK UEMsDN2exqk0TYtpWVxiXJT jCm3pvOZkf2UkgPH5y4HRP5 NfkrYAXP2aZX6LiitzwI9ET q2JwJQa uqNmCsowGx3ucEYMh5qrLa6 2NjUgLTMyNSAyMDAwIDEwND LmWq5YxVFopK1hG1feoXqbD ck3Uw2D gCZmVUA8JGrhB9JnkUObJes VC5z8WEvkW7AnO6ivPTRQK9 XfdAcypLybrHK9UVCON3mQY WlnaHQg XTB8Vq0Mj6MbsjTuSTZ1Ki5 IHAWeTM76PY5fGTXFJ3baGB JawkcrSSLkBe9WDDrVlUP4v CAyMDAw Rw7UxpfGqQE4bDU1EFIOWs1 CKG1wx0GkLuZoZWDcv7WxFo d4Nn8YdEUfTJ7Kf327Fe3Bs DB7bVFp EG9TpzVuLWmqPFkhPjImHQG aubQrA4GnrNAbXQQCF6Hago A1Y5rcykQbImzpCADlvPJaQ XIgMTIy Gk4GhbAuBPblGhFjU2uwXG9 vhFTxT48bkO3iXk5Zi046MN KfF4DdyERnmtC4AGByEkptX 2lkdGhz EYidJml7YLQjERHlTSCjCGh 2PYLoSMKxJCUzJRFfZKW1JN KfVwLCOkp2VVX3SMD5UAMkF HB1LZY1 NrE6QJFzRRI8JIR6AvD1BEG kDHY1OXCfKNA9QXE3QLYsMG LcRQwiEZYcBCA2EmdnHzP7P DcyMiA3 ElBvSpI3BCFtKOJaKISvWan 6DYZfVGOiQVoyEap2TjVgSO J2XuphCCA3OdZlMsV0UDHhT MO9XoHn XZY6ASJxJAYiMRIfZNUuVKV BSVYkHSRnUXJ4EJG7YqF0JS QtLLJ5MHA0YzWmMdmeMZO1E BV7AkVn FzDbJCD2UMVzNsIqFMfhDws 4XMUtZKZ7YML0PbIkJVTsXy V2OYQpJem7YYN1YrY0SQAfZ zIyIDUw GSP0FFKlIJUmQH7+CmVuZG9 rsjxiBNKkFE8vmea7EQeqKC PuA8ZgGNO7XFOvNo0NRI8cw GggMjg0 MAovRmlsdGVyIFsvRmxhdGV EZWNvZGVdCj4+ImE1kzSmwM b80kNYyEXT5OP/682Y6RTy2 0nKWnjL UwQMZjLVQFXW6yZPUidF3EA 6kJUteDCuYGkHsURHQWpYh0 MiXfiGCNNB7WyTQgoTONgKk zGF3E9V i/0Wc3EQVtxUDxfv/b33kgy hI9M/+sh0tMzb/y1977kyqr i5ztdvbAAOj9yYVD74/Trtx ckTj4L6 QiTlNTTfs+xDr3YXMqqtYyP 9BE1hI19Y/+NuopjLROxyY3 144kJ1E/ReP7a5lrsTBp7Wr O1U8UV4 cLBC1oS1h8mBKZGoZv1fSy4 ieWw41usYdA/h/gAdogg2G3 fKU+B/Cf5a8+g978PTvwifk Pma+ub5 r358WZzGZ6vA/23X+W+1TIP UMj/yiPfr5XqgejcEUO6yPI VTO++yfSgHMDAqp0+lHsqmN ZY+hx7C ZlX2iD3lms8BUTnLpTrsH5S 5sNWCmRWjnbVZ/YItepxx7Q 5+mp+1zZJTt0b7uNP7TC1Ms /G20It0 zB8Vj0K7Q4hoeP94A8CpiTZ usMmQVvYJ6+SU0SMryzZZTf 925Psr+pD+yhJZPguxk/CJ5 5utXOzV TnOtYmUrvoIYHziTiRFd5BJ T9hyFXpIBX/MdvIMb/LQQEP PdNwdhvly5VWuunnXRzfaZm N+jhVi5 fv6mzDoFozqfNQfKp8COex1 erWk0NJ9mZD8FTLupIJDaBl vhBIcwttC72yLbgcthcgRwv SONUmk6 esDfkUdeEUg99lUYFEp7JJ8 5Oo2qYieQyhmBQ+uR1yc1aB 7SFXQnFmLWNZPNYksgAcgat thlNR6j z3Eh6YlUwB6xy1uN+3wCqra qXxTeST2uJ/Jj/G3+Dv+Y9/ LP+YzJMQ5sqLKjcKEVDKtSi 6D9cFAf IEsSI2zcXPvppH2Wx0ff5VT hwA3fPZiOoberOB/yinMqjU GdBmcihOhpsf2e9AUvUKSe9 yKQY/Qy pIc+N+kCRU8VQeucCxlS4LZ KbP6wLceInNUcWyu4af4QJs UmtMB1uAppMieW+1P3bgmVH vXyti3F XyVfyJfwlfxx/gR/ir+AE9n FT/IP+RTI7Zm8SPSEJG0aGc KKx5BKAHDsRtCOU0SF4pWiZ ejDvkWL t0z82pXamdX+VauDW0KSmgd EDbNNQu4qGtwW6yQ3Nxkeiw heXyhf7oj6tTCTqvsM++Qu+ SW0plQc JCsTIVOVacpCpUlZrxxWepV M6ODOGhxMgzdsNf5eR+nV65 5lo1V1T+m8h8x1wz1Ncpzdp IWXZj57 SJexlueoNWO4xbY3CJi6U6z iOKhCPEtLhGXUJNUIUcolOs kEcytOY3MK9eHJgPHqtURN+ oQDUqo8 2+9sd8A0jYzMevnxlMZziWr tDFywHxyPBfQl3UGaQAN6Iv sr70ZinXdKogRDjBkhDce5e 4xNYW81 I6fKm6SeBl9LHMAH5aOjzD2 6dS0tR44cVTokjGSDY66aBA S19YHPqvRm34JrkdkQdlviz a9eCqG4 ExNKOt1c9eAYl8h1xL91zza yU2wGcXpTu5nQQm7W+TbNsW nBNzPOdg4YMkp1J/kJrLL1X jY42LKz FaSr6ECdDugGMZMjN/YBe4E 0YUoaQikRqngiY1SSx9o13H gdlAie29M13rVj1QHEi216A dcmxSbJ Pl0Hwl5dB6Q7dK1cRjNgqZH 0ZXjAeKDgTk8Zz0WDHM8ixe Ij0TEz (more content not included)... Normal [facility] PAD Re[facility] Please click on link to see report pdfCD:[id number] AWPlQmh4FIGlMfDF2enlo8P SvbHZSbZWWsTDWiVFTZGj6T Y7ygwtcgCYJdLiBqSWWe UXDtCXpukeYjk9WudWJ6DCu vTg6BxoKisS6zVTvDT570xP BwdqKsX97dkZ8nUUCef18qT y2NmnHp pLtuqmKkwYHiEAZ6PeGtSjJ xMzExNDIxNTItMDUnMDAnKQ o+VqqisqSyLrfZNPQoAT4lq cz3VZfb KOlpKVGiXj1mlUTjm1ApfEU 0u2LRU6JwdzIXQS5wZS0Jjk lerD3Rq4ksYDTncGirCRKLR 0ZsYWdz XRJvSb4Yv107ZsSbgDPtAAF 6UVAjAaf5FSGrLZEdVLOsBY 8FQ39ay2TpfltZgMP9aBOnS lwIB6M3 VN2ESVg4Gr3RpBMzOiW8UKv tNXZviZhnKK7rfUFoEAYkAo 5BQFLQKDbqsNZvLjO4Cq9NK FDfA1x8 IOFjHTsbFZMmAF77ONnpRAz fCRJrI8LwuUOvLgRiJc0GHG IhdI3iFLU8UJudIOH8I7ibm GggMTMz JtoeLZCkL6llmBseZGv7Zj8 +LaOiUO8uyqt1SACiu6SgTe t2Dt9DcGQqWO7Zj662Ac5Sh MQ3vUIx SO7ZloUwVNljNSleVkZwOPY sqzGnQ4RszVMuQZSucOTNxE ChmFISDSdbIevzg7NUpPIpA LFoHk0P YCW7P0jbonWeFwCPO7OhL04 nbC9uDJ0NyE7VqqUbVI2uw4 DnmqmCS0ZtccNOZIGphthvc D7qSQBp DMFFUz2UrRX1mGSoMrQnAfy gMCAwIDAgMCAwIDAgMCAwID AgMCAwIDAgMzMzCjAgMCAwI DAgMCAw IDAgMCAwIDAgMCAwIDAgMCA wIDAKMCAwIDAgMCAwIDAgNz CgTGY8GrMgZBNqEUMsOgbtG CAwIDAg ODMzCjAgMCAwIDAgMCAwIDA gMCAwIDAgMCAwIDAgMCAwID ETVJMsDAOiAXA6EXDfQWR6A DYxMSA1 NTYgMzMzIDAgMCAyNzggMCA eJTA3UIC9ODwVQqElWUJgVD RaJBMhSdc3JGDgNiHlRVJmV CAwIDAg VES7QI1+ZdPhLO7dcqh8NSG uv6OoXza7Zo8EcGKtWY1Ra1 59GHHdJ9OibGHjqsblNe9tt C2apDTh F2ZjbOElNGMyoRWRPFwyEia pK4TvRqKWX3ZfumVPMf98TU yiLkY7YQ9hLkQeAgOgCDVvB GT8BXff DAepq5muY4xkMOWzJIO2TOu cX6JkgSlqTotVV4I4TY9VBW r3Ti3BtHHcbVWWtfadAYYlU c8ZTCQH UAczrQEhZsT7My7GDOPaM0m 2ICQxGCgiTREqOV61BQnmAW grRRGeY4SktATyXoSfCu4KN QHksH7q QYF4AKhwUAZ7W7rvaAjeLxL sJFgjEOOcR1pucWtcGFf2Ck 4+ZtYkNE0qegk9HXJhu1YwO pm6Pi3R aUQvXB5Dy238Du3XoQJ2kUQ hAR6AdeTzVYeuOBwsQvSqJN LeozVnW8VkqNEuHDHpoXKLM AovRmly v9GWeKOkIJFbFs0QYCL4X4v qdeHaXaAJL2ZkK63qiX8qDK 9VwX5CerLzJX3lp0EkmzjFD 0ZvbnRE XCYjnjssdY2rWJsaABCQUn4 UdFY8uOMbTdUtSwlcRVUoAW B7MtHcSCVhIDZdAZTeTMZvE DAgMjc4 XBHiDvvqSbbiOlc1UYH7ZuM 6FDPvFCC9TEK3InE1EXRhJS A1NOLpRYZ9CNM0KkQ7GXMfS zMzIDAg XEQjCrJcGKUdHOleZwC6WiK hRtKwZKgoRzZ0YplcUMT5Gn yrOeDyBOH8GSCpRIckUtE5N TEgODMz HdujWbW0ZyqtDoG0ZYz9PDY 6CtKoIfG0BOHjLIJ6VkAaQq W6DXj7INFyPMWsHiHtRGRjL CAwCjAg HOWtVZT1LpX0STFyDTM7BXT fCQP2MUKjMjXnUDAxNYL7DD GaUzd1NOUwTDJ9YKH0IOL2D DkKNjEx JTTuFBH2AAHkVaVhEWM9BPT 6ZYTuRcLhWDNjSVQ1FGDdXx f9CCP4QcX6HOZvZDMvYR7+C zPyCJ3e aig0OJUor8CuMiy4Fq1XtMG lIS7Ve484EXGnA1McaTCucc izGc8jrU5dhVLgI9LipJfuz mktSXRh bXxtPu1BdNMoxfJuNeojCy5 rkVFAw7tiLd63DaDcFZT4Vk UbQxXdZYRgTnChYj4VtACnu Z6dQ7wu mBcwFcS5Mf6IkQHhZSY4LGc eD5NklMQpSSUJB9k1XOcoS3 JgY0eePX5bJGrrD3FfWTPyM 7x5MPXb QIhkVOvmsZstiPB2OxEWK6Z xZ4JnpSQ3PXFNZ5Mxe9Nfgw OpAQU1VXoxKZRmJIqlWoAzQ hMGX46s gVjyURUgVTReUgyUO3H3N6w pZHRoIDUyMQo+PgplbmRvYm aPHYXxSDMfGsiJZAmCL5V7r HOtK8Un izVCB6N1EvB0hLUoT5GtaVT YhDPzTn9YPPPtLt6psUNoX6 UhiDTgmM7EmHEwcTJXZ5Aoe tR1C9qm ciAzMgovTGFzdENoYXIgMTI hYn1PzzLfBPboZjMhY7thAA 2zwUIjC74ngH9qIk8Do060O IVxW0Xf vBUqvyW6TBBaIobkV9blfZw dCBtcFoO7VWWuGOEfNSFqAQ AwIDAgMzAzIDMwMyAwIDAgM CAwCjAg Del7ZVWcMCZjKVJiRVVtNKV gMCAwIDAgMCAwIDAgMAowID XyDCZ5IvinYJT0YmHjLfV9P DAgNDU5 BGJjBWX4WyUePpMbXMPyAUQ 6MkDkTXL1TlU5KLX0AKNiCX I6ZRZzFCYjGBC0ApK5DDakC jQyIDAg MCAwIDAgMCAwIDAgMAowIDA lNKZ0FYTsGHU8DZZsIpT6MT KyFZi6AWLgUOP8MXYjHMB0Z DIyOSAw CSOiQdS2UZx5YZg6KYCpPWS oGQAjJQBwAHI9GrTyHDopQb F8ABXpHFW5XSSaWEY4DtTqB DQ3XT4+ RkFeFF9gnpgpVCUyRX5xngh 9IPmnIHyuIHDuMt3scBXuc5 XgqEP0g5DPM7VjjoFYJL2uW Z8UBYei FlRcYLLivRDTnAXcsYLZP0M eUKbnKABkEe5Qr153HhIevC JsCMW6EBMvIlA9QTTzXlNfK MSvMK5J L67zx0HqittSvVT0jPHlAeW CU3N6YR9HIMf1Wk0YwKJhIw C5JGvmJXAcaFenPM6jvPKwQ KFvJv4D FEINUFswiDIkJtE5Hv1UXZQ iM0q0IWP3PWgzZSTjCV86ZO l3HtugGKHiV7CraFUzQeI0Z h8AIWVs bT3sIBFtRObfHPN7Y0lqoFl tBILoFQhnJBEiB4jzlEgpVV M3Cj4+UeXyCF2jbrjrHlYkX Q7hlfg5 STaeUQuwLNOqDx9liDkcE3C pyHkaXHOiGZU0LDF2cXEVU7 Xle5LVu531YI5FNPylZtZlQ UJvbGRJ iINlkYNPS8XhunK8S1qjanX zMgovTGFzdENoYXIgMTIxCi 9KlkVkQJhhWsScS7inQH9wu EZaI16a tW5sTd6Hg941EWPyE7NbrUF dnxYuVDFeGGJOP5krMQKxjv BbIDIyNiAwIDAgMCAwIDAgM CAwIDAg MCAwIDAgMCAwCjAgMCAwIDA gMCAwIDAgMCAwIDAgMCAwID Z0OzKsWXZdXWyhTTHwLUZ5X DYgMCAw RFVhGRW0OQskKHOrZMBlLHI oAEWgONDjCPx8LWbaLLUiJC AwIDAgMCAwIDAgMCAwIDAgM CAwIDAg MCAwCjAgMCAwIDUyOCAwIDQ nNiX9KouhIOokWOHlYACiNG E4AgUiEAGeFrO7YVHJXTL8M DUyNyAw UQTkYcHbDHA5AGEfGBdvWEO 6QxngERJoXXH2GW1+Pgplbm RvYmoKMTMgMCBvYmoKPDwKL 0D1iBNs W3PzobYVCRDaxnzmqY9vDq7 Xa336GpAiLGXzEELhBLcJRP ucYwpxL4VtYhXHO5SbqhXSQ g96YEpb YmC6EV6lUuRnGxSkJVKgARG fBMssKEtjr5svT8ghBNWxHN C9MXgbF6HtmOybKzzRG4Y8Z L3PQGz7 If7CiXQgzYUWgmlrVFEaVs9 QYROYOMhqaKVuGhB9Bz6QST JfW8d0LJOlNRyuNSAwCL60W DkwNQov IAHzS3UrvQSfWyLpIi8MFSR ueN2dDYH4QOodPNS3A9uxlH jlZzGmWOroCXZrF0veuWhlL DQxCj4+ HzCiLT5vitlfYJXzYH9zhhp 2GChtBPbqUFMnPt4rsMpoD6 PptSgyYVDvBDC8HRN2rYOIF 2Yle2KF p847HC8LynqtaQ2PBc4KuBJ mpXZnDFAjUpBXD8qrr1NJlW FkRWTaYpajWK3nt9FxdqdhI 1dpbkFu u4wQxtTeDBsxUrinLv7bcTM jw5QnkIG9a8TeKRMfMMDZUc 9HcJN6gUFtJvLlSsesGNKlC DAgMCAw KDCsOIYnWLBxPIJ2GLLnGYN iKgJIKzf5AJT7BJA3AEWjRO F3EVA4IqF9NGCeZPV6PEV2P rD1JPIt KVM5GREzYFYeLklhAXHlBHV RGRQeSCZsZmF9IWX7LuX2Qj UeDlSfPJE1AwL2QDVkDSH3Z jIgMjc4 TQRrBYXiHQduHkv1TrIgCNP 4DmvuBZE9OsHeLaY2VHGtUJ JdHLBrUVDvNVR5YwCnFNMeE CAwCjAg DPOjLIJ6MjQ8RXQsAXSrVGE 9QoM9GBAhTdf1PIS4CnC8EL EdGtOdWGBsXDIlNLZfBzV2A zMKNTU2 MBQ3OdQ8BJNoMAZ6BAVnPxL 0UEUtLsi6KIW9WxQ8XWPaUo IyIDUw (more content not included)... [facility] Please click on link to see report pdfCD:[id number] NLMyFji0TPXmQvIM1wvsl4C CetUFSjMVTfVPVzONVMHc7E C1sjweyxHFZzBtAsLMMo FOCtLOeqehChh3WwgOT7BWh rRe3QcvOwdX0iXGrAP966yN KqwpHvJ74clS0zECIml81zN v2CmcVp eFbhmwNwoMJoDVF4NgIdTlG xMzExNDIxMzktMDUnMDAnKQ o+EakjvhRqZdvTAAHcSF2fv ta5KQpn GWgzGRCwOn3eiAEef1AysBK 0t1GQR9QcjzQMYO4bPY4Cbw dhbL2Fl3pqRIZkjGfkTUKTZ 0ZsYWdz PNCuKm7Fn355KlVogJXzBMN 0ZKShMzf2MZDxVFWaWOSuWK 3YJ84mx4YsgzeElTE5pLGkE wdNM2D9 GJ4AILw5Aq7HyVSwBlO1LGy qQJMreYkzZT6rxFPoRLYsBi 4VPGUZVDzgvWCzLrB1Cw1YB JSjT7o4 IDUqWMxsXNRpZF67HKcbPPg mXJOqA0FjcYXhPnTvCv6VQH TzeF6aJHB3ZEbaDUN6L9qos GggMTMz UjvqJOBdD6xyqNkwJXg4Vj6 +ThKpKR6qzpc7WZYdn5SkOy y1Yc8UbXOwKW5Xb856Ts0Bn BS6yQAx UF5IxiMfBSntKCdpFpDsUFO vloHtX6MfiIDqEZPxkSRBnQ EcfCPGPKapKefgx3JVjGNmS RDbGg9L CSZ2D2wyldDgYlXNW6AyS98 ziC8uVI8BlO4QvwGnHR2bo6 ZjiznSI9ZmojRZMWBjwbtjo A1sVBAn WEUCJi6XdMG4kEUsHlEcUmr gMCAwIDAgMCAwIDAgMCAwID AgMCAwIDAgMzMzCjAgMCAwI DAgMCAw IDAgMCAwIDAgMCAwIDAgMCA wIDAKMCAwIDAgMCAwIDcyMi AwIDAgNjExIDAgNzIyIDAgM CAwIDAg RESgSrSgENN2XljqOEX7AuW aAPK4NUSjNEZyXVQpJDHaEY LlQIScCHUWUJKxPZXcHIT9U DYxMSA1 METuMvExBCL5CnMjCWOtQCI 3MXItTuj9CVUzEQReWdacBB s9AzEoGDL0ZIVfOrRxHKGjV hq0GLW9 NiAzMzMgNjExIDAgMCAwIDU 1Nl0+PgplbmRvYmoKNyAwIG 1elkv7ICzvWDspCCGeTd7cg CDfa9Sq vAW5p6MTL4VzvkQGSD7sKL8 GrtlngV2RUs8JvQCtsmCmCm daOb7onUWVz1jwVa30ZkZjB TMyNSAy EMHnVAQjUDYwZp6JvYXejN0 zJ1fbeJhzNhk3No4QdJLgVZ W1GJicH0IemRMcPadXN3m7K CnjF7Be U4rrQPIEL6FzvVmfeTvgiOX 0VWFGG9zDEOyvpOGxPUZ2Tz 9Ay2QdfhTzALJ5Xa2OUFPlP X57MA4w AYQOL4tuJQXrkuprZQUyKs3 NOGkHyPJ4dBMrHWAyJr5Psy mCnKU4sJS7XVJXDp4TPT7xv 2JqCjgg MMCsQyfOFJiTS2H7vIAhD3R gwrACK7C7AiL8fHZjP5GwbI TKzSZuBj8RTECpBk1xaLKdQ XJpYWxN IPqoJlldj6LLtMImUZAwCp6 TQFU5X3qdbuNzVdDHU1QoZ6 1gcU5eIM7YhG9XzlPkCW7so 2RpbmcK Y1AchgZVQTHloeelhD1zJTm qYXGBEi6FmVC6uEVnDbLxCi ggMCAwIDAgMCAwIDAgMCAwI DAgMCAw MDH3PFIzZrQPQwv8EKU0HUH 3HRInQTT6LSL4OrZ9CASzFN K4KZM4KnF4DILsVQE5HGN1V mZ0VDMs Ehb4XOFiYHRvBsRuQGKmGRG 0OiA5UvckXqFaTBefRsJ0Li ozRzHgMOp8AQY0GuAaWor2P DAgNjY3 TKV7BmG4TwTHGwOqGMc3ORD 2PomrURD4LfDmDbD5ABFwHS L5JiUeBwZ2JPe6KUTiEJAzU CAwIDAg LKzsAORoVFP6KSMhXEW1NSB lGVZ3FSOkBKX8ZIM7ZKB1DV LkDBZ6ODSlEtAtPMGwFVEeT jIgODMz YuY0MgG7KOGsRSX2MUMxCwK wBNSyPKQqMnhiECJ2OOYfMU T1PoMxTSX1KHXaPn4IWW1lq 2JqCjkg UCPpFdoUVBaOW3K5pFUdC6X hncVYZVYpewdjiN5vJk6Id6 17XcXdOJGvHCQlGEexEw0qY R6RSh0H bOYtusQtZtorIf4zzBKOu1t tNy48AftiYFV0DjZrSWYeZJ GoAXJhUk8AdNObtZ0rK8xaw GggMjc4 Mz8BpOSfHBC7UJkqP6DkxVP gVvaEF5w3YWasX2IzY0qpSS NJK4LtlDhorLuraOQ5JJQCV 1hIZWln uYWnGFE7Im1Yb3CvgyDdYAS 5Da8NMSGiSM39JX2bEGORE4 vzLPJpjrjvEKGeTd3TVMyYj GJ9lLTd DMOuDh9JnxlIxCP8cAY2Rtm HMx1JCI6gs5DdKqIeKBAqn6 TuQdm9Pq1LrNCuPC8Ez136X i5AuWZ5 sOEsKO2HceWxQIpaAPwgDiS mDLKhpkYkL7MkpMOrWWIvwL OLAFhiIxops9ELhICnMABaE c2OPEV2 T8wfqyRkBlKQH9WjI43weH3 eNJ9XwD9TpuJdUJ5lg2Jjxk sMK9UvidCKZULcpchsfT0qZ DkgMCBS Ej6DfSY3mGHjKtXoWjlfVCD tHLY8MxZgMBHaFAFzRDGbIg AzMzMgMCAwIDAgMAoyNzggM CAwIDAg MCAwIDAgMCAwIDAgMCAwIDM gBrBuBDFcXGvjCNIsMXU0Lr FiBuCbUMavRtJ4CzSlUdP7O DYxMSA3 TvotAkNyMQV0ZNIlTXLjFmM lKTphFzd4QfXuIpa3QPE3Uu P8EixfEtNzYKF3ZbP4ADJbL CAwIDk0 NCAwIDAgNjExIDAgMCAwCjA qLPCsYOK1RrU5DUZaGME2AZ AgSBT6AXSsFpBiPQOuSBD9N TEgMjc4 JEKtZBL5SAA0YRY0RCrETsL iQILeLKN8QPUtQCDgMGpuKR P9BKNpCgQ7UXRzQDC2ROEeO KT5LQT5 Nl0+PgplbmRvYmoKMTEgMCB mSmnTJGbDQ9jhpxc5vYIrYP NfOPtzSCClR2BlDXV3KNCZP 0ZpbHRl jwBaW6KjIEKvWVWvu6CoKZm +ImdyzWKdIZ3MfCeeOB7pWA UVP/e+n99dRYUYovx75SsAV CGSgIQP d1MoX6LbZ4RN3PRAhelOkyR gCEJpKFBwE+xSoh0/gKCigE GcUcNFaAjOJD8eZRj7y3JoA +PoWOKM BpFpC0N+6giURoqU5Z/9o9O +k9/73XvOeeeec+32n84FMH YaHjDDdCPkKrF1mvLjFCNNx TQg3J8N bin6mbDNvHJNRDp1AFS7+uO somycvkbYcFI08OWRQi5oxK u0c8DUGY9ZWVG3Y4vETygs1 bBizbon XyUrIPjBYt8xN9xLRXHtadc PFN+G/heIBqrqkBbv5fSkZK +fdzMqBwhBT3uePc0WQlKpn +5cily+ IBLm03/bceFfWiZCaliAb+a B1CbYjjV+QpuMvzF9vtGtcj /aVABr7bQ90A40sHpT69TMq Ivpr+wg /grOjCPr3AtuqGUzXQhReAc p7sdyfH+jjTa1Hj/kZ/gZyz eZlboZS0m8p1LSuSouC34Ee 9hp+Gyg 0tJbpQlnDXltGo09lD2NnQF PWC+cxZoJ9kVEvbw3Pi0f4X l3X5iMApeEzDYMAo5u4STU0 zipu1IG BmIF4oCSnPBtmG5JqH7w1Vu KjdEd8T1f2OtQcZokkaxM4f SlEVEYceyCBFRoRvsuzcPI1 fTIcFRb snW7q9AaSGA0xcZed8IzW6U FZ/YUuHWKzfXACpe4rnOyrs 8PBH7Q3keuLgpa0ypMDX9eq SofxqhE uaO8YK6lbVkAPorzy1zqrsC +OkRROkm/LOqca6VRkiP46s FmXVPYVLYQEoSsYpvYVsxHy 4Qtjq0T ChlP4Akl+6SEVzZ3AGP1X0y t/Bl+jL/Lf80/4T38S/61QI MQDSlGO2kSC4Eo3olqSktB3 1C28epx xxKTDGumEuVk+BI2XcHfKWK ombEru2FUXb4xFYVVIwacJt zWtPy5XmkOGbxotSjYvuzfo 8UMg2Lc kIHBSkyZyopZCVsACbJFLMR SzWDl4UJJS8QF8TM7JGZ5EO mQXWR/LD1uK4fjutr3uLuG5 1fB5/GF fDl/ij/Nn+NuLOr40sU3U23 JNfbwPtQYIyQKKcJowSeUQO EKe8W2zljqTrphXQQ2xW5b1 n9oylzQ mJO5ekH1lC+wklwSpHRpsjQ R7aU0EM4TRsH58VA6Cl3rs6 7BubwvJ0v8d/vkTvkj+ZqSo qQqYyET pIpDSDFBXkqhXggOp8Wszsp QAQ2Gcul6NKsKIdcssq6zc9 /FJ1KjkWS6pK2djAVCT7046 7ik5riN xcaU2AG6xTqK9hb4SLEROxq FE4XR8UfYYtMFLPmDFpnv3G yDIB6zZ7Y77PJJGbeRB2N5N N2eT/6M mWqIv9MYo0ViQJV21ZSJMYD gQmaAp1DofXiS9ddny50Zfc ff1IDEHdazoW7s0VYcATB77 87yMaxF jd40KuQJQlmNiqjq8Jo1wO2 3gJCgsnaIEQm4tNHA8gZODS mZL6lIzvJkE3/naGkuaItF7 BjKi9m2 sRlUDl5d1rg88lezi84kPoW uXSllAut5RiPWNHDtnGdZAj n2NDKm5agqj5LF0LqRr3D2x IUE11Dz QAdwBDgIvAzsA/EHi6DNQJf WOxb6Yp3me+6n8fKEJ7v3cH TQhvzbJ0IZj4a869N9cdKsH Gh8YfD9 ix0ZVfJ6jVzZk8FD0U5xFOS NoHb3Kk3M2nG2kdgCdwSEgU gXW+st (more content not included)... Normal [facility] Blood Urea Nitrogenon 2022 Urea nitrogen [Mass/Vol] 30 mg/dL High 12-06 [facility] Comment on above: Performed By: #### C REMAY, BUN #### [facility] [address] [place] [address] [place] Creatinineon 04-07-2022 Creatinine [Mass/Vol] 1.21 mg/dL High 0.44-1.03 [facility] Comment on above: Performed By: #### C REAT, BUN #### [facility] [address] [place] [address] [place] Creatinine Clr Calc Pharmacy 46.76 [facility] Comment on above: Result Comment: PERF ORMED BY: [place] [address] PATHOLOGIST AIR TWISTER WINDER AIRAM ROMEO M.D. Performed By: #### C REAT, BUN #### [facility] [address] [place] [address] [place] Estimated GFR ( Laura 53 [facility] Comment on above: Result Comment: GFR estimated reference range: According to KDOQI guidelines, <60 ml/min/1.73m2 is sufficient to diagnose a patient with chronic kidney disease. Performed By: #### C REAT, BUN #### [facility] [address] [id number] [place] Estimated GFR (Non- Am 44 Normal [facility] Comment on above: Performed By: #### C REAT, BUN #### [facility] [address] [phone] [place] Creatinine and Glomerular fi ltration rate.predicted panel (S/P/Bld)Ordered By: Miguel Membreno on 04-07-2022 Creatinine [Mass/Vol] 1.21 mg/dL 0.44-1.03 [facility] Estimated glomerular filtrat ion rate (GFR) non- AmericanOrdered By: Miguel Membreno on 04-07-2022 GFR/1.73 sq M.predicted among non-blacks MDRD (S/P/Bld) [Vol rate/Area] 44 mL/Min [facility] No Panel InformationOrdered By: Miguel Membreno on 04-07-2022 Estimated GFR () 53 mL/Min [facility] Comment on above: GFR estimated refere nce range: According to KDOQI guidelines, <60 ml/min/1.73m2 is sufficient to diagnose a patient with chronic kidney disease. Pharmacy Creatinine Clearance (Chem 46.76 [facility] Serum or plasma urea nitroge n measurement (mass/volume)Ordered By: Miguel Membreno on 04-07-2022 Urea nitrogen [Mass/Vol] 30 mg/dL 12-06 [facility] CHEMISTRYOrdered By: Genaro Rivera on 03-31-2022 Albumin Elph (U) [Mass fraction] mg/dL Invalid Interpretation Code [facility] Remisol Creatinine (U) [Mass/Vol] 95.7 mg/dL Invalid Interpretation Code [facility] Remisol U Prot/Creat Ratio UT Invalid Interpretation Code 0.00 - 200.00 [facility] Remisol CHEMISTRYOrdered By: SYSTEM SYSTEM on 03-31-2022 Albumin [Mass/Vol] 3.7 g/dL Normal 3.3 - 5.0 gm/dL [facility] Remisol Anion gap [Moles/Vol] 16 mmol/L Normal 6 - 16 mEq/L [facility] Remisol Calcium [Mass/Vol] 8.8 mg/dL Low 8.9 - 11.1 mg/dL [facility] Remisol Chloride [Moles/Vol] 103 mmol/L Normal 101 - 111 mmol/L [facility] Remisol CO2 [Moles/Vol] 25 mmol/L Normal 21 - 31 mmol/L [facility] Remisol Creatinine [Mass/Vol] 1.4 mg/dL High 0.5 - 1.3 mg/dL [facility] Remisol GFR/1.73 sq M.predicted among blacks MDRD (S/P/Bld) [Vol rate/Area] 45 mL/min/1.73 m2 Low >=59mL/min/1.73 m2 [facility] Chem S GFR/1.73 sq M.predicted among non-blacks MDRD (S/P/Bld) [Vol rate/Area] 37 mL/min/1.73 m2 Low >=59mL/min/1.73 m2 [facility] Chem S Glucose [Mass/Vol] 203 mg/dL High 55 - 199 mg/dL [facility] Remisol Magnesium [Mass/Vol] 2.1 mg/dL Normal 1.3 - 2.4 mg/dL [facility] Remisol Phosphate [Mass/Vol] 4.7 mg/dL High 1.9 - 4.6 mg/dL [facility] Remisol Potassium [Moles/Vol] 3.8 mmol/L Normal 3.5 - 5.3 mmol/L [facility] Remisol Sodium [Moles/Vol] 140 mmol/L Normal 135 - 145 mmol/L [facility] Remisol Urea nitrogen [Mass/Vol] 29 mg/dL High 5 - 21 mg/dL [facility] Remisol Urea nitrogen/Creatinine [Mass ratio] 21 mg/mg High 10 - 20 [facility] Remisol HEMATOLOGYOrdered By: Chai Reid on 03-31-2022 Hematocrit (Bld) [Volume fraction] 39.5 % Normal 34.0 - 46.0 % [facility] HemeAutoSS Hemoglobin (Bld) [Mass/Vol] 12.6 g/dL Normal 12.0 - 16.0 gm/dL [facility] HemeAutoSS Reference Laboratory Testing Ordered By: Angelica Casas on 03-31-2022 Test Code 790831 Invalid Interpretation Code [facility] SendOutsSS Test Code 196634 Invalid Interpretation Code [facility] SendOutsSS Test Name MPO AB Invalid Interpretation Code [facility] SendOutsSS Test Name PR3 AB Invalid Interpretation Code [facility] URINALYSISOrdered By: Elizabeth Rosas on 03-31-2022 Bilirubin [...] AM) Normal Negative [facility] UA Auto SS Chireno.plasma/Lith ium.RBC (Bld) [Mass ratio] 0-3 /HPF Normal [...] [facility] UA Auto SS Urobilinogen Qn (U) 0.3911980 {Donell'U}/dL Normal 0.0 - 1.0 EU/dL [facility] UA Auto SS WBC Auto Ql (U) Negative (03/31/22 7:43 AM) Normal Negative [facility] UA Auto SS WBC LM.HPF (Urine sed) [#/Area] 0-5 /HPF Normal 0-5/HPF [facility] UA Auto SS US ankle/arm indiceson 03-31 US ankle/arm indices [facility] Main [address] [address] Ultrasound Report Signed Patient: Evon Corcoran MR#: [id number] : 1950 Acct:[id number] Age/Sex: 71 / F ADM Date: 03/31/22 Loc: [facility] Room: Type: [facility] Attending Dr: Miguel Membreno MD Ordering Provider: [...] Miguel Membreno M.D.03/31/2022 3:38 PM Dictation Location: [place] [address] Tech: Christy Florian Transcribed By: PWS 03/31/22 153 Dictated By: Miguel Membreno MD 03/31/22 1537 Signed By: 03/31/22 1538 Normal [facility] CHEMISTRYOrdered By: Jenni Lazaro on 02-12-2022 HbA1c (Bld) [Mass fraction] 9.3 % High <=5.9% [facility] ChemAutoSS Office Visit (Cardiology)on 01-15-2022 Follow-up visit Diagnoses/Problems Assessed Atherosclerosis of [place] coronary artery of [place] heart without angina pectoris (414.01) (I25.10) Status [...] vein thrombosis (453.40) (I82.409) Orders Atherosclerosis of [place] coronary artery of [place] heart without angina pectoris Renew: Aspirin EC [...] complications. 5. Diabetes, managed by endocrinology in [place]. A1c remains above target 6. Hypertension completely under control. 7. High-risk medication with Xarelto, so far well-tolerated. Takes baby aspirin twice weekly 8. Stage III chronic kidney disease to be monitored closely 9. Recent diagnosis of intermittent claudications and PAD followed by vascular surgery Dr. Daniel in [place], she is currently going through walking exercise program Fariha Guidry MD, [facility] Current Meds Medication NameInstruction amLODIPine Besylate [...] and no (more content not included)... Normal incuBET Tobacco Screening.on 022 Fall risk assessment a) No falls within the last year [facility] [employer] 600 DO Work Phone: Tobacco use status [facility] b) No [facility] [employer] 600 DO Work Phone: CHEMISTRYOrdered By: Lab ROP User on 01-06-2022 Glucose [Mass/Vol] 166 mg/dL High 55 - 99 mg/dL [facility] C POC Subsection POC Device SN Invalid Interpretation Code [facility] POC Subsection POC User ID [id number] Invalid Interpretation Code [facility] POC Subsection POC Username ROSSY ZEPEDA Invalid Interpretation Code [facility] POC Subsection Glucose [Mass/Vol] 166 mg/dL High 55 - 99 mg/dL [facility] C POC Subsection Comment on above: Result Comment: Rain evert Meter POC Device SN [id number] Invalid Interpretation Code [facility] POC Subsection POC User ID [id number] Invalid Interpretation Code [facility] POC Subsection POC Username ROXANA MILES Invalid Interpretation Code [facility] POC Subsection CHEMISTRYOrdered By: Lab ROP User on 01-01-2022 Glucose [Mass/Vol] 185 mg/dL High 55 - 99 mg/dL [facility] C POC Subsection Comment on above: Result Comment: Rain evert Meter POC Device SN [id number] Invalid Interpretation Code [facility] POC Subsection POC User ID [id number] Invalid Interpretation Code [facility] POC Subsection POC [...] g/dL Normal 6.0 - 7.8 gm/dL F [facility] Remisol Sodium [Moles/Vol] 138 mmol/L Normal 135 [...] a) No falls within the last year -[facility] 600 DO Work Phone: Heart Rate Regular [facility] 600 DO Work Phone: Office Visit (Cardiology)on [...] Vital Signs Recorded: 28May2021 12:25PMRecorded: 28May2021 12:21PM Rauemguy669, LUE, Aqwysaz465, RUE, Sitting Ixttsudcg41, LUE, Xccizbz68, RUE, Sitting Heart Rate68, R Radial Pulse QualityRegular, R Radial Height5 ft 5 in Viitnp170 lb 3.2 oz BMI Lcnnfnwzir59.98 kg/m2 BSA Calculated2 Fall Screeninga) No falls within the last year Signatures Electronically signed by : Fariha Guidry MD; May 28 2021 3:34PM EST (Author) Normal incuBET Laboratory - Chemistry and C hemistry - challengeon 05-11-2021 Cholesterol [Mass/Vol] 96 mg/dL Normal <=129 [facility] [employer] DO Work Phone: Cholesterol in LDL [Mass/Vol] 39 mg/dL Normal 7-40 [facility] [employer] [facility] [employer] DO Work Phone: CO2 [Moles/Vol] 24 mmol/L Normal 21-31 [facility] fel[facility] Formerly named [facility] DO Work Phone: Glucose [Mass/Vol] 217 mg/dL above high threshold 55-199 [facility] feliz Formerly named [facility] DO Work Phone: Comment on above: If this glucose resu lt represents a fasting glucose, interpretation should refer to the following reference range: 55-99 mg/dL Laboratory - Hematology and Cell countson 05-11-2021 Erythrocyte distribution width (RBC) [Ratio] 13.2 % Normal 10.9-14.2 [facility] [employer] [facility] [employer] DO Work Phone: Hematocrit (Bld) [Volume fraction] 39.5 % Normal 34.0-46.0 [facility] [employer] [facility] [employer] DO Work Phone: Platelet mean volume (Bld) [Entitic vol] 11.0 fL above high threshold 6.4-10.8 [facility] [employer] feliz 250 DO Work Phone: No Panel Informationon 05-11 14 {mEq/L} Normal 6-16 [facility] [employer] feliz 250 DO Work Phone: 102 mmol/L Normal 101-111 [facility] feliz 250 DO Work Phone: 4.2 mmol/L Normal 3.5-5.3 [facility] [employer] feliz 250 DO Work Phone: 136 mmol/L Normal 135-145 [facility] [employer] 250 DO Work Phone: 8.9 mg/dL Normal 8.9-11.1 [facility] [employer] 250 DO Work Phone: 25 {No_Units} above high threshold 10-20 [facility] [employer] 250 DO Work Phone: 1.0 mg/dL Normal 0.5-1.3 [facility] feliz 250 DO Work Phone: 25 mg/dL above high threshold 5-21 [facility] [employer] 250 DO Work Phone: >60 Normal >=59 [facility] [employer] 250 DO Work Phone: Comment on above: eGFR is race adjuste d. AA=. 55 {mL/min/1.73_m2} below low threshold >=59 [facility] [employer] fel[employer] 250 DO Work Phone: Comment on above: Chronic kidney disea se could be indicated at eGFR's of less than 60 mL/min/1.73m2. Kidney failure is indicated at less than 15 mL/min/1.73m2. 54 {Int._Unit/L} above high threshold 6-46 [facility] [employer] feliz 250 DO Work Phone: 67 {Int._Unit/L} above high threshold 5-43 [facility] [employer] feliz 250 DO Work Phone: 197 mg/dL above high threshold <=149 [facility] [employer]Lexi feliz 250 DO Work Phone: 49 mg/dL [facility] 250 DO Work Phone: Comment on above: HDL > or equal to 60 mg/dL: Low cardiovascular riskHDL < 40 mg/dL : High cardiovascular risk 193 mg/dL Normal 120-200 [facility] [employer] feliz 250 DO Work Phone: 229.0 {E9/L} Normal 150.0-500.0 [facility] [employer] feliz 250 DO Work Phone: Comment on above: Slide reviewed by BR Platelet count verified using smear estimate. 85.4 fL Normal 80.0-100.0 [facility] feliz 250 DO Work Phone: 33.5 {gm/dL} Normal 31.4-36.0 [facility] [employer] feliz 250 DO Work Phone: 28.7 pg Normal 27.0-34.0 [facility] fel[facility] 250 DO Work Phone: 13.2 {gm/dL} Normal 12.0-16.0 [facility] 250 DO Work Phone: 4.6 {E12/L} Normal 4.3-5.9 [facility] 250 DO Work Phone: 6.7 {E9/L} Normal 4.0-11.0 [facility] 250 DO Work Phone: Office Visit (Cardiology)on 05-08-2021 Follow-up visit Diagnoses/Problems Assessed Atherosclerosis of [place] coronary artery of [place] heart without angina pectoris (414.01) (I25.10) Chronic kidney disease, stage 3 (585.3) (N18.30) Deep vein thrombosis (453.40) (I82.409) Essential hypertension (401.9) (I10) High risk medication use (V58.69) (Z79.899) Hyperlipidemia (272.4) (E78.5) Status post coronary angioplasty (V45.82) (Z98.61) Never a smoker Class 1 obesity with body mass index (BMI) of 34.0 to 34.9 in adult (278.00,V85.34) (E66.9,Z68.34) Orders Atherosclerosis of [place] coronary artery of [place] heart without angina pectoris Renew: Aspirin EC 81 MG Oral Tablet Delayed Release; TAKE ONE TABLET THURSDAY AND THURSDAY Renew: Losartan Potassium 50 MG Oral Tablet; TAKE 1 TABLET TWICE DAILY Atherosclerosis of [place] coronary artery of [place] heart without angina pectoris, Chronic kidney disease, stage 3, High risk medication use Basic Metabolic Panel; Status:Active - Retrospective Authorization; Requested for:[id number]; Complete Blood Count; Status:Active - Retrospective Authorization; Requested for:[id number]; Atherosclerosis of [place] coronary artery of [place] heart without angina pectoris, Essential hypertension Renew: Metoprolol Succinate ER 50 MG Oral Tablet Extended Release 24 Hour; TAKE 1 TABLET Daily Atherosclerosis of [place] coronary artery of [place] heart without angina pectoris, Hyperlipidemia ALT - Alanine Aminotransferase, Serum; Status:Active - Retrospective Authorization; Requested for:[id number]; AST; Status:Active - Retrospective Authorization; Requested for:[id number]; Lipid Panel; Status:Active - Retrospective Authorization; Requested for:[id number]; Class 1 obesity with body mass index (BMI) of 34.0 to 34.9 in adult Healthy Weight Tips; Status:Complete - Retrospective Authorization; Done: [id number] Deep vein thrombosis Start: Xarelto 10 MG Oral Tablet; Take 1 tablet daily Essential hypertension Start: amLODIPine Besylate 5 MG Oral Tablet (Norvasc); TAKE 1 TABLET DAILY SocHx: Never a smoker Tobacco Use Screening; Status:Complete; Done: [id number] Unlinked Stop: Xarelto 20 MG Oral Tablet [...] to be monitored closely Fariha Guidry MD, [facility] Surgical History Problems History of Angioplasty History of Cholecystectomy History of Colonoscopy History of Hysterectomy Past Medical History Problems History of angina pectoris (V12. (more content not included)... Normal incuBET Tobacco Screening.on 022 Adult depression screening assessment No [facility] [employer] 250 DO Work Phone: Fall risk assessment a) No falls within the last year [facility] Tra[employer] feliz 250 DO Work Phone: Tobacco use status [facility] b) No [facility] [employer] feliz 250 DO Work Phone: Vital Signs Date Time Vital Sign Value Performing Clinician Facility 04-10-2023 09:19-0500 Body temperature 98.42 [degF] [facility] 04-10-2023 09:19-0500 Diastolic blood pressure 68 mm[Hg] [facility] 04-10-2023 09:19-0500 Heart rate 82 /min [facility] 04-10-2023 09:19-0500 Respiratory rate 16 /min [facility] 04-10-2023 09:19-0500 SaO2% (BldA) [Mass fraction] 97 % [facility] 04-10-2023 09:19-0500 Systolic blood pressure 168 mm[Hg] [facility] 03-20-2023 09:00-0500 Blood Pressure Location Christopher GLOLE [facility] 03-20-2023 09:00-0500 Body temperature 98.42 [degF] Christopher KAPLE [facility] 03-20-2023 09:00-0500 Diastolic blood pressure 80 mm[Hg] Christopher KAPLE [facility] 03-20-2023 09:00-0500 Heart rate 70 /min Christopher KAPLE [facility] 03-20-2023 09:00-0500 Respiratory rate 16 /min Christopher KAPLE [facility] 03-20-2023 09:00-0500 SaO2% (BldA) [Mass fraction] 99 % Christopher RUSSELL [facility] 03-20-2023 09:00-0500 Systolic blood pressure 132 mm[Hg] Christopher RUSSELL [facility] 03-04-2023 09:09-0500 Heart rate 80 /min Nicola Tapia [facility] 03-04-2023 09:09-0500 SaO2% (BldA) [Mass fraction] 99 % Nicola Tapia [facility] 03-04-2023 09:09-0500 Diastolic blood pressure 67 mm[Hg] Nicola Tapia [facility] 03-04-2023 09:09-0500 Mean blood pressure 91 mm[Hg] Nicola Tapia [facility] 03-04-2023 09:09-0500 Systolic blood pressure 138 mm[Hg] Nicola Tapia [facility] 03-04-2023 09:09-0500 Respiratory rate 16 /min Nicola Tapia [facility] 03-04-2023 09:04-0500 Diastolic blood pressure 96 mm[Hg] Nicola Tapia [facility] 03-04-2023 09:04-0500 Heart rate 84 /min Nicola Tapia [facility] 03-04-2023 09:04-0500 SaO2% (BldA) [Mass fraction] 98 % Nicola Tapia [facility] 03-04-2023 09:04-0500 Systolic blood pressure 165 mm[Hg] Nicola Tapia [facility] 03-04-2023 08:12-0500 Heart rate 82 /min Nicola Tapia [facility] 03-04-2023 08:12-0500 SaO2% (BldA) [Mass fraction] 97 % Nicola Tapia [facility] 03-04-2023 08:12-0500 Diastolic blood pressure 75 mm[Hg] Nicola Tapia [facility] 03-04-2023 08:12-0500 Mean blood pressure 103 mm[Hg] Nicola Tapia [facility] 03-04-2023 08:12-0500 Systolic blood pressure 159 mm[Hg] Nicola Tapia [facility] 03-04-2023 08:12-0500 Body temperature 98.42 [degF] Nicola Tapia [facility] 03-04-2023 08:11-0500 Respiratory rate 14 /min Nicola Tapia [facility] 03-03-2023 11:45-0500 Body height 165.1 cm Miguel Membreno Other [facility] Other 03-03-2023 11:45-0500 Body mass index (BMI) [Ratio] 33.28 kg/m2 Miguel Membreno Other [facility] Other 03-03-2023 11:45-0500 Body temperature 97.8 [degF] Miguel Membreno Other [facility] Other 03-03-2023 11:45-0500 Body weight 90.72 kg Miguel Membreno Other [facility] Other 03-03-2023 11:45-0500 Diastolic blood pressure 72 mm[Hg] Miguel Membreno Other [facility] Other 03-03-2023 11:45-0500 SaO2% (BldA) [Mass fraction] 96 % Miguel Membreno Other [facility] Other 03-03-2023 11:45-0500 Systolic blood pressure 124 mm[Hg] Miguel Membreno Other [facility] Other 02-18-2023 13:40-0500 Diastolic blood pressure 70 mm[Hg] DO Christopher Kaple Work Phone: [facility] 02-18-2023 13:40-0500 Heart rate 64 /min DO Christopher Kaple Work Phone: [facility] 02-18-2023 13:40-0500 Respiratory rate 16 /min DO Christopher Kaple Work Phone: [facility] 02-18-2023 13:40-0500 SaO2% (BldA) [Mass fraction] 98 % DO Christopher Kaple Work Phone: [facility] 02-18-2023 13:40-0500 Systolic blood pressure 169 mm[Hg] DO Christopher Kaple Work Phone: [facility] 02-18-2023 12:40-0500 Inhaled oxygen flow rate 1 L/min DO Christopher Kaple Work Phone: [facility] 02-18-2023 09:15-0500 Body height 165.1 cm DO Christopher Kaple Work Phone: [facility] 02-18-2023 09:15-0500 Body weight 97.52 kg DO Christopher Kaple Work Phone: [facility] 02-16-2023 13:23-0500 Heart rate 76 /min Gary Prashant [facility] 02-16-2023 13:23-0500 SaO2% (BldA) [Mass fraction] 96 % Gary Prashant [facility] 02-16-2023 13:22-0500 Diastolic blood pressure 80 mm[Hg] Gary Cerda [facility] 02-16-2023 13:22-0500 Mean blood pressure 105 mm[Hg] Gary Cerda [facility] 02-16-2023 13:22-0500 Systolic blood pressure 155 mm[Hg] Gary Cerda [facility] 02-16-2023 13:22-0500 Body temperature 97.7 [degF] Gary Cerda [facility] 02-16-2023 13:21-0500 Respiratory rate 16 /min Gary Cerda [facility] 02-12-2023 09:03-0500 Body height 165.1 cm Fariha Guidry MD Work Phone: [facility] 02-12-2023 09:03-0500 Body mass index (BMI) [Ratio] 35.78 kg/m2 Fariha Guidry MD Work Phone: [facility] 02-12-2023 09:03-0500 Body weight 97.52 kg Fariha Guidry MD Work Phone: [facility] 02-12-2023 09:03-0500 Diastolic blood pressure 64 mm[Hg] Fariha Guidry MD Work Phone: [facility] 02-12-2023 09:03-0500 Heart rate 64 /min Fariha Guidry MD Work Phone: [facility] 02-12-2023 09:03-0500 Systolic blood pressure 120 mm[Hg] Fariha Guidry MD Work Phone: [facility] 01-26-2023 08:00-0500 Blood Pressure Location Christopher WELLS [facility] 01-26-2023 08:00-0500 Body temperature 98.6 [degF] Christopher KAPLE [facility] 01-26-2023 08:00-0500 Diastolic blood pressure 72 mm[Hg] Christopher KAPLE [facility] 01-26-2023 08:00-0500 Heart rate 65 /min Christopher KAPLE [facility] 01-26-2023 08:00-0500 SaO2% (BldA) [Mass fraction] 96 % Christopher KAPLE [facility] 01-26-2023 08:00-0500 Systolic blood pressure 124 mm[Hg] Christopher KAPLE [facility] 01-06-2023 08:13-0400 Diastolic blood pressure 78 mm[Hg] Gary Prashant [facility] 01-06-2023 08:13-0400 Heart rate 69 /min Gary Prashant [facility] 01-06-2023 08:13-0400 Mean blood pressure 107 mm[Hg] Gary Prashant [facility] 01-06-2023 08:13-0400 Respiratory rate 14 /min Gary Prashant [facility] 01-06-2023 08:13-0400 Systolic blood pressure 166 mm[Hg] Gary Prashant [facility] 01-05-2023 09:15-0400 Body height 165.1 cm Miguel Membreno Other [facility] Other 01-05-2023 09:15-0400 Body mass index (BMI) [Ratio] 33.28 kg/m2 Miguel Buehrer Other [facility] Other 01-05-2023 09:15-0400 Body temperature 96.3 [degF] Miguel Buehrer Other [facility] Other 01-05-2023 09:15-0400 Body weight 90.72 kg Miguel Maierehrer Other [facility] Other 01-05-2023 09:15-0400 Diastolic blood pressure 62 mm[Hg] Miguel Buehrer Other [facility] Other 01-05-2023 09:15-0400 SaO2% (BldA) [Mass fraction] 97 % Miguel Buehrer Other [facility] Other 01-05-2023 09:15-0400 Systolic blood pressure 120 mm[Hg] Miguel Buehrer Other [facility] Other 11-04-2022 12:00-0400 Body height 165.1 cm Miguel Martinezrer Other [facility] Other 11-04-2022 12:00-0400 Body mass index (BMI) [Ratio] 33.28 kg/m2 Miguel Maierehrer Other [facility] Other 11-04-2022 12:00-0400 Body temperature 97.1 [degF] Miguel Buehrer Other [facility] Other 11-04-2022 12:00-0400 Body weight 90.72 kg Miguel Maierehrer Other [facility] Other 11-04-2022 12:00-0400 Diastolic blood pressure 70 mm[Hg] Miguel Butcherr Other [facility] Other 11-04-2022 12:00-0400 SaO2% (BldA) [Mass fraction] 95 % Miguel Membreno Other [facility] Other 11-04-2022 12:00-0400 Systolic blood pressure 140 mm[Hg] Miguel Membreno Other [facility] Other 11-03-2022 10:30-0400 Body height 165.1 cm Renetta Barahona Other [facility] Other 11-03-2022 10:30-0400 Body mass index (BMI) [Ratio] 33.28 kg/m2 Renetta Barahona Other [facility] Other 11-03-2022 10:30-0400 Body temperature 97.6 [degF] Renetta Barahona Other [facility] Other 11-03-2022 10:30-0400 Body weight 90.72 kg Renetta Barahona Other [facility] Other 11-03-2022 10:30-0400 Diastolic blood pressure 76 mm[Hg] Renetta Barahona Other [facility] Other 11-03-2022 10:30-0400 SaO2% (BldA) [Mass fraction] 98 % Renetta Barahona Other [facility] Other 11-03-2022 10:30-0400 Systolic blood pressure 116 mm[Hg] Renetta Barahona Other [facility] Other 09-10-2022 08:12-0400 Blood Pressure Location Lindajahaira MeltonOsmin [facility] 09-10-2022 08:12-0400 Body temperature 96.8 [degF] Linda Osmin [facility] 09-10-2022 08:12-0400 Diastolic blood pressure 71 mm[Hg] Linda Osmin [facility] 09-10-2022 08:12-0400 Heart rate 56 /min Linda Osmin [facility] 09-10-2022 08:12-0400 Systolic blood pressure 118 mm[Hg] Linda Osmin [facility] 06-11-2022 09:10-0400 Diastolic blood pressure 70 mm[Hg] Linda Osmin [facility] 06-11-2022 09:10-0400 Mean blood pressure 92 mm[Hg] Linda Osmin [facility] 06-11-2022 09:10-0400 Systolic blood pressure 136 mm[Hg] Linda Osmin [facility] 06-11-2022 09:04-0400 Blood Pressure Location Linda Osmin [facility] 06-11-2022 09:04-0400 Body temperature 97.88 [degF] Linda Osmin [facility] 06-11-2022 09:04-0400 Diastolic blood pressure 75 mm[Hg] Linda Osmin [facility] 06-11-2022 09:04-0400 Heart rate 66 /min Linda Solorio [facility] 06-11-2022 09:04-0400 Systolic blood pressure 155 mm[Hg] Linda Solorio [facility] 05-05-2022 09:45-0500 Body height 165.1 cm Miguel Membreno Other [facility] Other 05-05-2022 09:45-0500 Body mass index (BMI) [Ratio] 33.28 kg/m2 Miguel Membreno Other [facility] Other 05-05-2022 09:45-0500 Body temperature 96.2 [degF] Miguel Membreno Other [facility] Other 05-05-2022 09:45-0500 Body weight 90.72 kg Miguel Membreno Other [facility] Other 05-05-2022 09:45-0500 Diastolic blood pressure 60 mm[Hg] Miguel Membreno Other [facility] Other 05-05-2022 09:45-0500 SaO2% (BldA) [Mass fraction] 97 % Miguel Membreno Other [facility] Other 05-05-2022 09:45-0500 Systolic blood pressure 112 mm[Hg] Miguel Membreno Other [facility] Other 04-07-2022 20:00-0500 Diastolic blood pressure 80 mm[Hg] DO Christopher Wells Work Phone: [facility] 04-07-2022 20:00-0500 Heart rate 70 /min DO Christopher Kaple Work Phone: [facility] 04-07-2022 20:00-0500 Respiratory rate 18 /min DO Christopher Kaple Work Phone: [facility] 04-07-2022 20:00-0500 SaO2% (BldA) [Mass fraction] 98 % DO Christopher Kaple Work Phone: [facility] 04-07-2022 20:00-0500 Systolic blood pressure 159 mm[Hg] DO Christopher Kaple Work Phone: [facility] 04-07-2022 17:05-0500 Body temperature 98.1 [degF] DO Christopher Kaple Work Phone: [facility] 04-07-2022 16:20-0500 Inhaled oxygen flow rate 2 L/min DO Christopher Kaple Work Phone: [facility] 04-07-2022 13:53-0500 Body height 165.1 cm DO Christopher Kaple Work Phone: [facility] 04-07-2022 13:53-0500 Body weight 90.71 kg DO Christopher Kaple Work Phone: [facility] 03-31-2022 10:15-0500 Body height 165.1 cm Renetta Barahona Other [facility] Other 03-31-2022 10:15-0500 Body mass index (BMI) [Ratio] 33.28 kg/m2 Renetta Barahona Other [facility] Other 03-31-2022 10:15-0500 Body temperature 98.7 [degF] Renetta Barahona Other [facility] Other 03-31-2022 10:15-0500 Body weight 90.72 kg Renetta Barahona Other [facility] Other 03-31-2022 10:15-0500 Diastolic blood pressure 82 mm[Hg] Renetta Barahona Other [facility] Other 03-31-2022 10:15-0500 SaO2% (BldA) [Mass fraction] 98 % Renetta Barahona Other [facility] Other 03-31-2022 10:15-0500 Systolic blood pressure 136 mm[Hg] Renetta Barahona Other [facility] Other 01-27-2022 12:00-0500 Body height 165.1 cm Miguel Membreno Other [facility] Other 01-27-2022 12:00-0500 Body mass index (BMI) [Ratio] 33.28 kg/m2 Miguel Martinezremelissa Other [facility] Other 01-27-2022 12:00-0500 Body temperature 97.7 [degF] Miguel Martinezrer Other [facility] Other 01-27-2022 12:00-0500 Body weight 90.72 kg Miguel Buehrer Other [facility] Other 01-27-2022 12:00-0500 Diastolic blood pressure 70 mm[Hg] Miguel Maierehrer Other [facility] Other 01-27-2022 12:00-0500 SaO2% (BldA) [Mass fraction] 98 % Miguel Martinezrer Other [facility] Other 01-27-2022 12:00-0500 Systolic blood pressure 142 mm[Hg] Miguel Membreno Other [facility] Other 01-15-2022 10:29-0400 Body height 165.1 cm Christopher Wells [facility] Phone: [facility] [employer] 600 DO Work Phone: 01-15-2022 10:29-0400 Body mass index (BMI) [Ratio] 34.95 kg/m2 Christopher Wells Work Phone: [facility] [employer] 600 DO Work Phone: 01-15-2022 10:29-0400 Body surface area Derived from formula 2.02 m2 Christopher Wells Work Phone: [facility] [employer] 600 DO Work Phone: 01-15-2022 10:29-0400 Body weight 95.26 kg Christopher Wells Work Phone: [facility] [employer] 600 DO Work Phone: 01-15-2022 10:29-0400 Diastolic blood pressure 60 mm[Hg] Christopher Wells Work Phone: [facility] [employer] 600 DO Work Phone: 01-15-2022 10:29-0400 Heart rate 68 /min Christopher Wells Work Phone: [facility] [employer] 600 DO Work Phone: 01-15-2022 10:29-0400 Systolic blood pressure 116 mm[Hg] Christopher Wells Work Phone: [facility] [employer] [address] DO Work Phone: 11-28-2021 15:19-0400 Blood Pressure Location Charis Daniel [facility] 11-28-2021 15:19-0400 Diastolic blood pressure 69 mm[Hg] Charis Fredy [facility] 11-28-2021 15:19-0400 Heart rate 61 /min Charis Fredy [facility] 11-28-2021 15:19-0400 Respiratory rate 18 /min Charis Fredy [facility] 11-28-2021 15:19-0400 SaO2% (BldA) [Mass fraction] 98 % Charis Fredy [facility] 11-28-2021 15:19-0400 Systolic blood pressure 132 mm[Hg] Charis Fredy [facility] 10-28-2021 09:56-0400 Blood Pressure Location Mohlucio Fredy [facility] 10-28-2021 09:56-0400 Diastolic blood pressure 72 mm[Hg] Charis Fredy [facility] 10-28-2021 09:56-0400 Heart rate 76 /min Charis Fredy [facility] 10-28-2021 09:56-0400 SaO2% (BldA) [Mass fraction] 96 % Charis Fredy [facility] 10-28-2021 09:56-0400 Systolic blood pressure 120 mm[Hg] Charis Fredy [facility] 05-28-2021 12:25-0400 Diastolic blood pressure 64 mm[Hg] Christopher Wells Work Phone: [facility] 600 DO Work Phone: 05-28-2021 12:25-0400 Systolic blood pressure 130 mm[Hg] Christopher Wells Work Phone: [facility] 600 DO Work Phone: 05-28-2021 12:21-0400 Body height 165.1 cm Christopher Wells Work Phone: [facility] 600 DO Work Phone: 05-28-2021 12:21-0400 Body mass index (BMI) [Ratio] 33.98 kg/m2 Christopher Bale Work Phone: [facility] 600 DO Work Phone: 05-28-2021 12:21-0400 Body surface area Derived from formula 2 m2 Christopher Wells Work Phone: [facility] 600 DO Work Phone: 05-28-2021 12:21-0400 Body weight 92.63 kg [facility] Work Phone: 05-28-2021 12:21-0400 Diastolic blood pressure 76 mm[Hg] Christopher Wells Work Phone: [facility] 600 DO Work Phone: 05-28-2021 12:21-0400 Heart rate 68 /min Christopher Wells Work Phone: [facility] 600 DO Work Phone: 05-28-2021 12:21-0400 Systolic blood pressure 140 mm[Hg] Christopher Wells Work Phone: [facility] 600 DO Work Phone: 05-08-2021 11:36-0500 Diastolic blood pressure 90 mm[Hg] Christopher Wells Work Phone: [facility] 250 DO Work Phone: 05-08-2021 11:36-0500 Systolic blood pressure 180 mm[Hg] Christopher eWlls Work Phone: [facility] 250 DO Work Phone: 05-08-2021 11:20-0500 Body height 165.1 cm Christopher Wells Work Phone: [facility] 250 DO Work Phone: 05-08-2021 11:20-0500 Body mass index (BMI) [Ratio] 34.11 kg/m2 Christopher Bale Work Phone: [facility] 250 DO Work Phone: 05-08-2021 11:20-0500 Body surface area Derived from formula 2 m2 Christopher Wells Work Phone: [facility] 250 DO Work Phone: 05-08-2021 11:20-0500 Body weight 92.99 kg Christopher Wells Work Phone: [facility] 250 DO Work Phone: 05-08-2021 11:20-0500 Diastolic blood pressure 90 mm[Hg] Christopher Wells Work Phone: [facility] 250 DO Work Phone: 05-08-2021 11:20-0500 Heart rate 68 /min Christopher Wells Work Phone: [facility] 250 DO Work Phone: 05-08-2021 11:20-0500 Systolic blood pressure 142 mm[Hg] Christopher Wells Work Phone: [facility] 250 DO Work Phone: Encounters Encounter Date Encounter Type Care Provider Facility Start: 04-10-2023 End: 04-10-2023 Emergency department patient visit Malvin Gupta Facility:[facility] Start: 04-10-2023 End: 04-10-2023 Emergency department patient visit Malvin Gupta [facility] Start: 03-23-2023 End: 03-24-2023 ambulatory Mara Dawit Facility:[facility] Start: 03-20-2023 End: 03-21-2023 ambulatory Christopher WELLS Facility[facility] Start: 03-20-2023 End: 03-20-2023 Patient encounter procedure Christopher WELLS [facility] Start: 03-18-2023 End: 03-18-2023 ambulatory DENTON D DOLCE Not Available Start: 03-04-2023 End: 03-05-2023 ambulatory DO Nicola Tapia Facility:[facility] Start: 03-04-2023 End: 03-04-2023 Pain Management Nicola Tapia [facility] Start: 03-03-2023 End: 03-03-2023 Patient encounter procedure Denton D Angelyce [facility] Start: 03-03-2023 End: 03-04-2023 ambulatory Denton D Dolce [facility] Other Start: 03-03-2023 Office outpatient vi sit 25 minutes Miguel CHOI [facility] Start: 03-02-2023 End: 03-03-2023 ambulatory Linda Solorio Facility:[facility] Start: 03-02-2023 End: 03-02-2023 Patient encounter procedure Linda Solorio [facility] Start: 02-24-2023 End: 02-25-2023 ambulatory Denton D Dolce Facility:[facility] Start: 02-20-2023 End: 02-20-2023 ambulatory DENTON D DOLCE Not Available Start: 02-19-2023 End: 04-10-2023 ambulatory Christopher WELLS Facility:CD:[id number] Start: 02-18-2023 End: 02-18-2023 ambulatory Miguel Membreno Facility:[facility] Start: 02-18-2023 End: 02-18-2023 Admission to same day surgery center DO Christopher Wells Work Phone: [facility]Interventional [facility] Work Phone: Start: 02-18-2023 End: 02-18-2023 ambulatory DO Christopher Wells Work Phone: [facility] Work Phone: Start: 02-16-2023 End: 02-17-2023 ambulatory MD Gary Cerda Facility:[facility] Start: 02-16-2023 End: 02-16-2023 Pain Management Gary Cerda [facility] Start: 02-16-2023 End: 02-17-2023 ambulatory Denton Mares Facility:[facility] Start: 02-16-2023 End: 02-16-2023 Patient encounter procedure Denton Mares [facility] Start: 02-12-2023 End: 02-12-2023 ambulatory [facility] Start: 02-12-2023 End: 02-12-2023 Office outpatient visit 25 minutes Fariha Guidry MD Work Phone: [facility] Comment on above: Atherosclerosis of n ative coronary artery of [place] heart without angina pectoris; Status post coronary angioplasty; Essential hypertension; Hyperlipidemia, unspecified hyperlipidemia type; PVD (peripheral vascular disease) ([facility]/HCC); Stage 3 chronic kidney disease, unspecified whether stage 3a or 3b CKD (CMS/HCC); Sleep apnea, unspecified type Start: 02-10-2023 End: 02-11-2023 ambulatory Denton Mares Facility:[facility] Start: 02-10-2023 End: 02-10-2023 Patient encounter procedure Denton Mares [facility] Start: 01-27-2023 End: 01-28-2023 ambulatory Denton Mares [facility] Start: 01-27-2023 Telephone encounter Miguel Membreno [facility] Vascular Surgery Start: 01-27-2023 End: 01-27-2023 Patient encounter procedure Denton Mares [facility] Start: 01-26-2023 End: 01-27-2023 ambulatory Christopher WELLS Facility:[facility] Start: 01-26-2023 End: 01-26-2023 Patient encounter procedure Christopher WELLS [facility] Start: 01-26-2023 End: 01-26-2023 Well adult monitoring check done Christopher WELLS [facility] Start: 01-19-2023 End: 01-20-2023 ambulatory Denton Mares Facility:[facility] Start: 01-19-2023 End: 01-19-2023 Patient encounter procedure Denton Mares [facility] Start: 01-13-2023 End: 01-14-2023 ambulatory Denton Gomez Angelygreg Facility:[facility] Start: 01-13-2023 End: 01-13-2023 Patient encounter procedure Denton Mares [facility] Start: 01-06-2023 End: 01-07-2023 ambulatory MD Gary Cerda Facility:[facility] Start: 01-06-2023 End: 01-06-2023 Pain Management Gary Cerda [facility] Start: 01-05-2023 End: 01-05-2023 ambulatory Miguel Membreno Other [facility] Other Start: 01-05-2023 Office outpatient vi sit 25 minutes Miguel Membreno [facility] Vascular Surgery Start: 12-31-2022 End: 01-01-2023 ambulatory Catrachito Wolf Facility:[facility] Start: 12-31-2022 End: 12-31-2022 Patient encounter procedure Catrachito Wolf [facility] Start: 12-22-2022 End: 12-23-2022 ambulatory Denton Jason Mares Facility:[facility] Start: 12-18-2022 End: 12-19-2022 ambulatory Christopher A RUSSELL Facility:[facility] Start: 12-08-2022 End: 12-09-2022 ambulatory Catrachito Wolf Facility:[facility] Start: 12-08-2022 End: 12-08-2022 Patient encounter procedure Catrachito Wolf [facility] Start: 11-24-2022 End: 11-25-2022 ambulatory Christopher WELLS Facility:[facility] Start: 11-24-2022 End: 11-24-2022 Patient encounter procedure Christopher A RUSSELL [facility] Start: 11-06-2022 End: 11-07-2022 ambulatory Christopher WELLS Facility:[facility] Start: 11-04-2022 Office outpatient vi sit 25 minutes Miguel Membreno [facility] Vascular Surgery Start: 11-04-2022 End: 11-04-2022 ambulatory DO Christopher Wells Work Phone: [facility] [facility] Other Start: 11-04-2022 End: 11-04-2022 Patient encounter procedure DO Christopher Wells Work Phone: [facility] Start: 11-03-2022 Follow-up encounter Renetta Musa [facility] Start: 11-03-2022 End: 11-03-2022 ambulatory Christopher Wells [facility] Other Start: 11-03-2022 End: 11-03-2022 Patient encounter procedure DO Christopher Wells Work Phone: [facility]ound [facility] Start: 10-31-2022 End: 11-01-2022 ambulatory Klaus Akkina Facility:[facility] Start: 10-31-2022 End: 10-31-2022 Patient encounter procedure Klaus Akkina [facility] Start: 09-18-2022 Chart Update Christopher Wells Work Phone: [facility] 250 DO Work Phone: Start: 09-17-[address] Christopher Wells [facility] ity:[id number] Start: 09-10-2022 End: 09-11-2022 ambulatory Linda Solorio Facility:[facility] Start: 09-10-2022 End: 09-10-2022 Patient encounter procedure Linda Solorio [facility] Start: 08-01-2022 End: 08-02-2022 ambulatory Fariha Delucaim Facility:[facility] Start: 07-23-2022 Rx Renewal Christopher Wells Work Phone: [facility] 250 DO Work Phone: Start: 06-13-2022 Rx Renewal [facility] Work [facility]: Start: 06-11-2022 End: 06-12-2022 ambulatory [facility] Start: 06-11-2022 End: 06-11-2022 Patient encounter procedure Linda Solorio [facility] Start: 05-21-2022 End: 05-22-2022 ambulatory Luis BENSON Facility:[facility] Start: 05-08-2022 End: 05-09-2022 ambulatory Linda Solorio Facility:[facility] Start: 05-08-2022 End: 05-08-2022 Lab Drop off Linda Solorio [facility] Start: 05-05-2022 End: 05-06-2022 ambulatory Linda Solorio [facility] [facility] Other Start: 05-05-2022 Office outpatient vi sit 25 minutes Miguel Membreno [facility] Vascular Surgery Start: 04-08-2022 End: 04-08-2022 ambulatory Renetta Barahona Other [facility] Other Start: 04-08-2022 Telephone encounter Renetta Musa [facility] Surgery Start: 04-07-2022 End: 04-07-2022 ambulatory Miguel Membreno Facility:[facility] Start: 04-07-2022 End: 04-07-2022 Admission to same day surgery center DO Christopher Wells Work Phone: [facility]Interventional Radiology Work Phone: Start: 04-07-2022 End: 04-07-2022 ambulatory DO Christopher Montenegro Kapjanna Work Phone: [facility] Work Phone: Start: 03-31-2022 Follow-up encounter Renetta Musa [facility] Start: 03-31-2022 End: 03-31-2022 ambulatory Miguel Membreno Facility:[facility] Start: 03-31-2022 End: 03-31-2022 ambulatory DO Christopher A Kapjanna Work Phone: [facility] Work Phone: Start: 03-31-2022 End: 03-31-2022 Patient encounter procedure DO Christopher Kaple Work Phone: [facility]-Ultrasound [facility] Start: 03-31-2022 End: 03-31-2022 Patient encounter procedure Klaus Núñez [facility] Start: 02-12-2022 End: 02-12-2022 Patient encounter procedure Christopher WELLS [facility] Start: 01-27-2022 End: 01-27-2022 ambulatory Miguel Membreno Other [facility] Other Start: 01-27-2022 Office outpatient ne w 45 minutes Miguel Membreno [facility] Vascular Surgery Start: 01-15-[address] Fariha cesar [facility] Facility: Start: 01-15-2022 Office outpatient vi sit 25 minutes Christopher Wells Work Phone: [facility] 600 DO Work Phone: Start: 12-31-2021 End: 06-01-2022 Recurring Charis Daniel [facility] Start: 11-28-2021 End: 11-28-2021 Patient encounter procedure Charis Daniel [facility] Start: 11-12-2021 Rx Renewal Christopher Wells Work Phone: [facility] 250 DO Work Phone: Start: 10-28-2021 [facility]al [facility] Work [facility] Start: 10-28-2021 End: 10-28-2021 Patient encounter procedure Charis Daniel [facility] Start: 10-01-2021 End: 10-01-2021 Patient encounter procedure Christopher WELLS [facility] Start: 09-24-2021 End: 09-24-2021 Patient encounter procedure Christopher WELLS [facility] Start: 08-08-2021 End: 08-08-2021 Patient encounter procedure Christopher WELLS [facility] Start: 07-30-2021 Rx Renewal Christopher Wells Work Phone: [facility] 250 DO Work Phone: Start: 06-12-2021 End: 01-13-2022 Recurring Christopher WELLS [facility] Start: 05-28-2021 Office outpatient vi sit 10 minutes Christopher Wells Work Phone: [facility] 600 DO Work Phone: Start: 05-28-2021 ambulatory Christopher Wells Facility: Start: 05-12-2021 Chart Update [facility] Work [facility] Start: 05-08-2021 ambulatory [...] 05-21-2032 Screening for malignant neoplasm of colon [facility] Start: 05-09-2025 DTaP/Tdap/Td Vaccines (2 - Td or Tdap) DTaP/Tdap/Td Vaccines (2 - Td or Tdap) [facility] Start: 02-01-2024 ambulatory Ambulatory Facility:[facility] Start: 07-28-2023 ambulatory Ambulatory Facility:[facility] Start: 02-18-2023 US Lower extremity veins - bilateral [facility] Start: 02-18-2023 US scan venography of lower limbs US venous mapping [facility] Start: 02-18-2023 [facility] Start: 02-12-2023 End: 02-13-2024 Alanine aminotransferase [Enzymatic activity/volume] in Serum or Plasma by With P-5'-P Alanine Aminotransferase Lab Routine Atherosclerosis of [place] coronary artery of [place] heart without angina pectoris Hyperlipidemia, unspecified hyperlipidemia type Expected: 02/12/2023 (Approximate), Expires: 02/13/[address] [facility] Service Area Work Phone: Comment on above: Expected: 02/12/2023 (Approximate), Expi res: 02/13/2024 Start: 02-12-2023 End: 02-13-2024 Aspartate aminotransferase [Enzymatic activity/volume] in Serum or Plasma by With P-5'-P Aspartate Aminotransferase Lab Routine Atherosclerosis of [place] coronary artery of [place] heart without angina pectoris Hyperlipidemia, unspecified hyperlipidemia type Expected: 02/12/2023 (Approximate), Expires: 02/13/2024 [facility] Work Phone: Comment on above: Expected: 02/12/2023 (Approximate), Expi res: 02/13/2024 Start: 02-12-2023 End: 02-13-2024 Lipid 1996 panel - Serum or Plasma Lipid Panel Lab Routine Atherosclerosis of [place] coronary artery of [place] heart without angina pectoris Hyperlipidemia, unspecified hyperlipidemia type Expected: 02/12/2023 (Approximate), Expires: 02/13/2024 [facility] Work Phone: Comment on above: Expected: 02/12/2023 (Approximate), Expi res: 02/13/2024 Start: 02-12-2023 FUV, Provider: Fariha Guidry, Status: Pen, Time: 9:00 AM FUV, Provider: Fariha Guidry, Status: Pen, Time: 9:00 AM [facility]: Start: 11-14-2022 Influenza vaccination Influenza Vaccine (#1) [facility] Start: 07-30-2022 FUV, Provider: Fariha Guidry, Status: Pen, Time: 8:40 AM FUV, Provider: Fariha Guidry, Status: Pen, Time: 8:40 AM [facility] Work [facility]: Start: 04-07-2022 [facility] Start: 02-12-2022 COVID-19 Vaccine (4 - Booster for Luca series) COVID-19 Vaccine (4 - Booster for Luca series) [facility] Start: 01-15-2022 FUV, Provider: Fariha Guidry, Status: Pen, Time: 10:10 AM FUV, Provider: Fariha Guidry, Status: Pen, Time: 10:10 AM [facility] Phone: Start: 05-28-2021 NURSEVST, Provider: CITLALLI RASHID CAFETERIA ATTENDANT 1,[id number], Status: Pen, Time: 11:45 AM NURSEVST, Provider: CITLALLI RASHID CAFETERIA ATTENDANT 1,[id number], Status: Pen, Time: 11:45 AM [facility] 250 DO Work Phone: Start: 1989 Screening for malignant neoplasm of breast Mammogram [facility] Start: 06-25-1967 Diabetes mellitus screening Diabetes Screening [facility] Start: 06-25-1967 Hepatitis C screening Hepatitis C Screening [facility] Start: 1949 Lipid panel Lipid Panel [facility] Start: 1949 Medicare Annual Wellness Visit Medicare Annual Wellness Visit (AWV) [facility] Start: 1949 Screening for malignant neoplasm of colon [facility] Start: 1949 Screening for osteoporosis Bone Density Scan [facility] Patient Education [facility] Work Phone: Patient referral [facility] Work Phone: Immunizations Immunization Date Immunization Notes Care Provider Fa cility 12-18-2021 Fluad Quadrivalent 0 .5 ML Intramuscular Prefilled Syringe Christopher Wells Work Phone: [facility] 600 DO Work Phone: 12-18-2021 influenza virus vaccine, unspecified formulation Christopher WELLS [facility] 12-18-2021 Pfizer COVID-19 Vac Bivalent 30 MCG/0.3ML Intramuscular Suspension Christopher Wells Work Phone: [facility] 600 DO Work Phone: 12-18-2021 SARS-CoV-2 (COVID-19 ) mRNA BNT-162b2 vax Christopher WELLS [facility] 03-26-2021 Fluzone High-Dose Quadrivalent 0.7 ML Intramuscular Suspension Prefilled Syringe Christopher Wells Work Phone: [facility] 250 DO Work Phone: 03-26-2021 influenza virus vaccine, unspecified formulation Christopher WELLS [facility] 03-26-2021 Pfizer-BioNTech COVID-19 Vacc 30 MCG/0.3ML Intramuscular Suspension Christopher Wells Work Phone: [facility] 250 DO Work Phone: 05-19-2020 Luca COVID-19 Vaccine 0.5 ML Intramuscular Suspension Christopher Wells Work Phone: [facility] 250 DO Work Phone: 05-18-2020 COVID-19 vaccine, vector-nr, [id number], PF, 0.5 mL; Translations: [Luca COVID-19 Vaccine] Christopher WELLS [facility] Comment on above: Reason for Medicatio n: Prophylaxis Reason for Medicatio n: Prophylaxis 02-23-2020 zoster vaccine recombinant Christopher Wells Work Phone: [facility] 250 DO Work Phone: 01-05-2020 Fluad Quadrivalent 0 .5 ML Intramuscular Prefilled Syringe Christopher Wells Work Phone: [facility] 250 DO Work Phone: 01-05-2020 influenza virus vaccine, unspecified formulation Christopher WELLS [facility] 12-28-2019 influenza, high dose seasonal, preservative-free Christopher Wells Work Phone: [place] [address] DO Work Phone: 12-15-2019 influenza virus vaccine, unspecified formulation Christopher WELLS [facility] 11-15-2019 zoster vaccine recombinant Christopher Wells Work Phone: [place] [address] DO Work Phone: 11-15-2019 zoster vaccine, live Christopher MARTI [facility] 12-20-2018 influenza, high dose seasonal, preservative-free Christopher WELLS [facility] 12-14-2018 influenza virus vaccine, unspecified formulation Christopher WELLS [facility] 12-14-2018 influenza, high dose seasonal, preservative-free Christopher Wells Work Phone: [place] [address] DO Work Phone: 12-14-2018 pneumococcal polysaccharide vaccine, 23 valent Christopher Wells Work Phone: [place] [address] DO Work Phone: 02-16-2018 influenza virus vaccine, unspecified formulation Christopher WELLS [facility] 02-16-2018 Influenza, injectabl e, Madin Milly Canine Kidney, preservative free, quadrivalent Christopher Wells Work Phone: [place] [address] DO Work Phone: 02-16-2018 pneumococcal conjuga te vaccine, 13 valent Christopher Moni Russell Work Phone: [place] [address] DO Work Phone: 11-14-2017 influenza virus vaccine, unspecified formulation Christopher Montenegro Russell Work Phone: [place] [address] DO Work Phone: 11-27-2016 influenza virus vaccine, unspecified formulation Christopher RUSSELL [facility] 11-27-2016 influenza, high dose seasonal, preservative-free Christopher Bajanna Work Phone: [place] [address] DO Work Phone: 01-21-2016 influenza virus vaccine, unspecified formulation Christopher BAJANNA [facility] 01-21-2016 influenza, high dose seasonal, preservative-free Christopher Bajanna Work Phone: [place] [address] DO Work Phone: 05-09-2015 tetanus toxoid, redu louise diphtheria toxoid, and acellular pertussis vaccine, adsorbed Christopher Bajanna Work Phone: [place] [address] DO Work Phone: 02-26-2009 novel [id number], preservative-free, injectable Christopher Bajanna Work Phone: [place] [address] DO Work Phone: NEGATED: Highlighted row has not occurred!02-27-2023 influenza virus vaccine, unspecified formulation Lindajahaira MeltonOsmin [facility] NEGATED: Highlighted row has not occurred!12-18-2022 influenza virus vaccine, unspecified formulation Catrachito [place] [facility] Payers Date Payer Category Payer Self-pay [id number] 2022 Unknown [id number] 2018 Unknown 2018 Unknown [id number] 2014 Medicare [id number] 2014 Medicare MEDICARE MEDICAR E PART A AND B [id number] 2014-Present [address] [place] [address] [id number]. [id number] 1949 Unknown [id number] 2.16.840.1.069116.3.579.2.356 1949 Unknown [id number] 2.16.840.1.329868.3.579.2.356 1949 Unknown [id number] 2.16.840.1.379588.3.579.2.356 1949 Unknown [id number] 2.16.840.1.534467.3.579.2.1068 1949 Unknown [id number] 2.16.840.1.170188.3.579.2.1244 1949 Unknown [id number] 2.16.840.1.129644.3.579.2.1259 1949 Unknown [id number] 2.16.840.1.530860.3.579.2.1259 1949 Unknown [id number] 2.16.840.1.127490.3.579.2.727 1949 Unknown [id number] 2.16.840.1.347364.3.579.2.727 1949 Unknown [id number] 2.16.840.1.824545.3.579.2.727 1949 Unknown [id number] 2.16.840.1.584310.3.579.2 1949 Unknown [id number] 2.16.840.1.622738.3.579.2 1949 Unknown [id number] 2.16.840.1.228766.3.579.2 1949 Unknown [id number] 2.16.840.1.507915.3.579.2 1949 Unknown [id number] 2.16.840.1.041718.3.579. 1949 Unknown [id number] 2.16.840.1.363758.3.579. 1949 Unknown [id number] 2.16.840.1.056903.3.579. 1949 Unknown [id number] 2.16.840.1.677790.3.579. 1949 Unknown [id number] 2.16.840.1.792146.3.579. 1949 Unknown [id number] 2.16.840.1.035689.3.579.2 1949 Unknown [id number] 2.16.840.1.310804.3.579.2 1949 Unknown [id number] 2.16.840.1.589623.3.579.2 1949 Unknown [id number] 2.16.840.1.287518.3.579.2 1949 Unknown [id number] 2.16.840.1.800132.3.579.2 1949 Unknown [id number] 2.16.840.1.781116.3.579.2 1949 Unknown [id number] 2.16.840.1.376574.3.579.2 1949 Unknown [id number] 2.16.840.1.450759.3.579.2 1949 Unknown [id number] 2.16.840.1.911191.3.579.2 1949 Unknown [id number] 2.16.840.1.407935.3.579.2 1949 Unknown [id number] 2.16.840.1.374694.3.579.2 1949 Unknown [id number] 2.16.840.1.628082.3.579.2 1949 Unknown [id number] 2.16.840.1.196348.3.579.2 1949 Unknown [id number] 2.16.840.1.104723.3.579.2 1949 Unknown [id number] 2.16.840.1.636203.3.579.2 1949 Unknown [id number] 2.16.840.1.581280.3.579.2 1949 Unknown [id number] 2.16.840.1.042029.3.579.2 1949 Unknown [id number] 2.16.840.1.058129.3.579.2 1949 Unknown [id number] 2.16.840.1.628188.3.579.2.72 Unknown [id number] 2.16.840.1.008469.3.579.2.531 Unknown [id number] 2.16.840.1.024041.3.579.2.531 Unknown [id number] 2.16.840.1.363933.3.579.2.531 Unknown [id number] 2.16.840.1.291433.3.579.2.531 Unknown [id number] 2.16.840.1.302093.3.579.2.531 Social History Date Type Detail Facility Start: 02-12-2023 Never a smoker Never a smoker -[facility] 250 DO Work Phone: Start: 12-10-2020 End: 03-20-2023 Tobacco smoking status Never smoked tobacco (finding) [facility] Comment on above: denies use Tobacco smoking status Never [facility] Comment on above: denies use Start: 02-12-2023 Sex Assigned At Female F [facility] Start: 1950 Sex Assigned At Female F [facility] Start: 02-12-2023 Tobacco use and exposure Smokeless tobacco non-user [facility] Work Phone: Start: 02-12-2023 Alcohol intake Current drinke r of alcohol (finding) [facility] Work Phone: Start: 02-12-2023 Alcohol Comment social [facility] Work Phone: Start: 1950 Sex Assigned At Not on file U [facility] Work Phone: Start: 02-02-2023 End: 02-12-2023 Exposure to SARS-CoV-2 (event) Not sure [facility] Medical Equipment Procedure Code Equipment Code [...] 11, Dx: E11.9 Directions: BID, [id number], Supply, 165, cm, 06/11/22 9:10:00 EDT, Height/Length Dosing, 97.6, kg, 06/11/22 9:10:00 EDT, Weight Dosing Start: 06-13-2022 Lancets, See Instructions, 100 EA, 11, Dx: E11.9 Directions: BID, [facility], Supply, 166, cm, 05/10/21 8:27:00 EST, Height/Length Dosing, 92.8, kg, 05/10/21 8:27:00 EST, Weight Dosing Start: 05-10-2021 Test strips, See Instructions, 100 EA, 11, Dx: E11.9 Directions: BID, [facility] #[id number], Supply, 165, cm, 06/11/22 9:10:00 EDT, Height/Length Dosing, 97.6, kg, 06/11/22 9:10:00 EDT, Weight Dosing Start: 06-13-2022 CL CLOSURE DEVIC E EXOSEAL 6F FDA Start: 08-11-2018 CL STENT IJE 2.5 X 08 FDA Start: 08-11-2018 Multiple periphe ral artery stent, bare-metal [id number] FDA Start: 04-07-2022 Lancets, See Instructions, 100 EA, 11, Dx: E11.9 Directions: BID, [facility], Supply, 166, cm, 05/10/21 8:27:00 EST, Height/Length Dosing, 92.8, kg, 05/10/21 8:27:00 EST, Weight Dosing Start: 05-10-2021 Test strips, See Instructions, 100 EA, 11, Dx: E11.9 Directions: BID, [facility] #[id number], Supply, 165, cm, 06/11/22 9:10:00 EDT, Height/Length Dosing, 97.6, kg, 06/11/22 9:10:00 EDT, Weight Dosing Start: 06-13-2022 Lancets, See Instructions, 100 EA, 11, Dx: E11.9 Directions: BID, [facility], Supply, 166, cm, 05/10/21 8:27:00 EST, Height/Length Dosing, 92.8, kg, 05/10/21 8:27:00 EST, Weight Dosing Start: 05-10-2021 Test strips, See Instructions, 100 EA, 11, Dx: E11.9 Directions: BID, [facility] #[id number], Supply, 165, cm, 06/11/22 9:10:00 EDT, Height/Length Dosing, 97.6, kg, 06/11/22 9:10:00 EDT, Weight Dosing Start: 06-13-2022 Lancets, See Instructions, 100 EA, 11, Dx: E11.9 Directions: BID, [facility], Supply, 166, cm, 05/10/21 8:27:00 EST, Height/Length Dosing, 92.8, kg, 05/10/21 8:27:00 EST, Weight Dosing Start: 05-10-2021 Test strips, See Instructions, 100 EA, 11, Dx: E11.9 Directions: BID, [facility] #[id number], Supply, 165, cm, 06/11/22 9:10:00 EDT, Height/Length Dosing, 97.6, kg, 06/11/22 9:10:00 EDT, Weight Dosing Start: 06-13-2022 Lancets, See Instructions, 100 EA, 11, Dx: E11.9 Directions: BID, [facility], Supply, 166, cm, 05/10/21 8:27:00 EST, Height/Length Dosing, 92.8, kg, 05/10/21 8:27:00 EST, Weight Dosing Start: 05-10-2021 Test strips, See Instructions, 100 EA, 11, Dx: E11.9 Directions: BID, [facility] #[id number], Supply, 165, cm, 06/11/22 9:10:00 EDT, Height/Length Dosing, 97.6, kg, 06/11/22 9:10:00 EDT, Weight Dosing Start: 06-13-2022 Lancets, See Instructions, 100 EA, 11, Dx: E11.9 Directions: BID, [facility], Supply, 166, cm, 05/10/21 8:27:00 EST, Height/Length Dosing, 92.8, kg, 05/10/21 8:27:00 EST, Weight Dosing Start: 05-10-2021 Test strips, See Instructions, 100 EA, 11, Dx: E11.9 Directions: BID, [facility] #[id number], Supply, 165, cm, 06/11/22 9:10:00 EDT, Height/Length Dosing, 97.6, kg, 06/11/22 9:10:00 EDT, Weight Dosing Start: 06-13-2022 Lancets, See Instructions, 100 EA, 11, Dx: E11.9 Directions: BID, [facility], Supply, 166, cm, 05/10/21 8:27:00 EST, Height/Length Dosing, 92.8, kg, 05/10/21 8:27:00 EST, Weight Dosing Start: 05-10-2021 Test strips, See Instructions, 100 EA, 11, Dx: E11.9 Directions: BID, [facility] #[id number], Supply, 165, cm, 06/11/22 9:10:00 EDT, Height/Length Dosing, 97.6, kg, 06/11/22 9:10:00 EDT, Weight Dosing Start: 06-13-2022 Lancets, See Instructions, 100 EA, 11, Dx: E11.9 Directions: BID, [facility], Supply, 166, cm, 05/10/21 8:27:00 EST, Height/Length Dosing, 92.8, kg, 05/10/21 8:27:00 EST, Weight Dosing Start: 05-10-2021 Test strips, See Instructions, 100 EA, 11, Dx: E11.9 Directions: BID, [facility] #[id number], Supply, 165, cm, 06/11/22 9:10:00 EDT, Height/Length Dosing, 97.6, kg, 06/11/22 9:10:00 EDT, Weight Dosing Start: 06-13-2022 Lancets, See Instructions, 100 EA, 11, Dx: E11.9 Directions: BID, [facility], Supply, 166, cm, 05/10/21 8:27:00 EST, Height/Length Dosing, 92.8, kg, 05/10/21 8:27:00 EST, Weight Dosing Start: 05-10-2021 Test strips, See Instructions, 100 EA, 11, Dx: E11.9 Directions: BID, [facility] #[id number], Supply, 165, cm, 06/11/22 9:10:00 EDT, Height/Length Dosing, 97.6, kg, 06/11/22 9:10:00 EDT, Weight Dosing Start: 06-13-2022 Lancets, See Instructions, 100 EA, 11, Dx: E11.9 Directions: BID, [facility], Supply, 166, cm, 05/10/21 8:27:00 EST, Height/Length Dosing, 92.8, kg, 05/10/21 8:27:00 EST, Weight Dosing Start: 05-10-2021 Test strips, See Instructions, 100 EA, 11, Dx: E11.9 Directions: BID, [facility] #[id number], Supply, 165, cm, 06/11/22 9:10:00 EDT, Height/Length Dosing, 97.6, kg, 06/11/22 9:10:00 EDT, Weight Dosing Start: 06-13-2022 Lancets, See Instructions, 100 EA, 11, Dx: E11.9 Directions: BID, [facility], Supply, 166, cm, 05/10/21 8:27:00 EST, Height/Length Dosing, 92.8, kg, 05/10/21 8:27:00 EST, Weight Dosing Start: 05-10-2021 Test strips, See Instructions, 100 EA, 11, Dx: E11.9 Directions: BID, [facility] #[id number], Supply, 165, cm, 06/11/22 9:10:00 EDT, Height/Length Dosing, 97.6, kg, 06/11/22 9:10:00 EDT, Weight Dosing Start: 06-13-2022 Lancets, See Instructions, 100 EA, 11, Dx: E11.9 Directions: BID, [facility], Supply, 166, cm, 05/10/21 8:27:00 EST, Height/Length Dosing, 92.8, kg, 05/10/21 8:27:00 EST, Weight Dosing Start: 05-10-2021 Test strips, See Instructions, 100 EA, 11, Dx: E11.9 Directions: BID, [facility] #[id number], Supply, 165, cm, 06/11/22 9:10:00 EDT, Height/Length [...] 11, Dx: E11.9 Directions: BID, [facility] #[id number], Supply, 165, cm, 06/11/22 9:10:00 EDT, Height/Length Dosing, 97.6, kg, 06/11/22 9:10:00 EDT, Weight Dosing Start: 06-13-2022 Lancets, See Instructions, 100 EA, 11, Dx: E11.9 Directions: BID, [facility], Supply, 166, cm, 05/10/21 8:27:00 EST, Height/Length Dosing, 92.8, kg, 05/10/21 8:27:00 EST, Weight Dosing Start: 05-10-2021 Test strips, See Instructions, 100 EA, 11, Dx: E11.9 Directions: BID, [facility] #[id number], Supply, 165, cm, 06/11/22 9:10:00 EDT, Height/Length Dosing, 97.6, kg, 06/11/22 9:10:00 EDT, Weight Dosing Start: 06-13-2022 Lancets, See Instructions, 100 EA, 11, Dx: E11.9 Directions: BID, [facility], Supply, 166, cm, 05/10/21 8:27:00 EST, Height/Length Dosing, 92.8, kg, 05/10/21 8:27:00 EST, Weight Dosing Start: 05-10-2021 Test strips, See Instructions, 100 EA, 11, Dx: E11.9 Directions: BID, [facility] #[id number], Supply, 165, cm, 06/11/22 9:10:00 EDT, Height/Length Dosing, 97.6, kg, 06/11/22 9:10:00 EDT, Weight Dosing Start: 06-13-2022 Lancets, See Instructions, 100 EA, 11, Dx: E11.9 Directions: BID, [facility], Supply, 166, cm, 05/10/21 8:27:00 EST, Height/Length Dosing, 92.8, kg, 05/10/21 8:27:00 EST, Weight Dosing Start: 05-10-2021 Test strips, See Instructions, 100 EA, 11, Dx: E11.9 Directions: BID, [facility] #[id number], Supply, 165, cm, 06/11/22 9:10:00 EDT, Height/Length Dosing, 97.6, kg, 06/11/22 9:10:00 EDT, Weight Dosing Start: 06-13-2022 Lancets, See Instructions, 100 EA, 11, Dx: E11.9 Directions: BID, [facility], Supply, 166, cm, 05/10/21 8:27:00 EST, Height/Length Dosing, 92.8, kg, 05/10/21 8:27:00 EST, Weight Dosing Start: 05-10-2021 Test strips, See Instructions, 100 EA, 11, Dx: E11.9 Directions: BID, [facility] #[id number], Supply, 165, cm, 06/11/22 9:10:00 EDT, Height/Length Dosing, 97.6, kg, 06/11/22 9:10:00 EDT, Weight Dosing Start: 06-13-2022 Functional Status Date Assessment Result Facility 04-10-2023 Functional Status N/A [facility] 03-20-2023 Functional Status N/A [facility] 03-04-2023 Functional Status N/A [facility] 02-16-2023 Functional Status N/A [facility] 01-26-2023 Functional Status N/A [facility] 01-06-2023 Functional Status N/A [facility] 09-10-2022 Functional Status N/A [facility] 06-11-2022 Functional Status N/A [facility] 04-07-2022 Functional status Patient at Baseline [facility] Work Phone: 11-28-2021 N/A [facility] 10-28-2021 No [facility] Mental Status Date Assessment Result Facility 04-07-2022 Cognitive function Cognitive Sta tus Patient at Baseline [facility] Work Phone: Clinical Notes 01-27-2022 to 04-10-2023 Note Date & Type Note Facility 04-10-2023 Evaluation + Plan note Extrac beatriz from: Title:ED Note Author:Erick BARTH, Radhames Crystal te:04/10/23 Bronchitis (J40: Bronchitis, not specified as acute or chronic) Orders: albuterol, 2 puff(s), Inhalation, q6hr Wheezing, 8.5 gm, Refill(s) 0, [facility][id number], 165, cm, 04/10/23 9:26:00 EST, Height/Length Dosing, 96.9, kg, 04/10/23 9:26:00 EST, Weight Dosing azithromycin, = 1 packet(s), Oral, As Directed, as directed on package labeling, X 5 day(s), # 6 tab(s), Refills(s) 0, Pharmacy: [facility] #[id number], 165, cm, 04/10/23 9:26:00 EST, Height/Length Dosing, 96.9, kg, 04/10/23 9:26:00 EST, Weight Dosing predniSONE, 60 mg = 3 tab(s), Oral, Daily, X 7 day(s), # 21 tab(s), Refills(s) 0, Pharmacy: [facility] #[id number], 165, cm, 04/10/23 9:26:00 EST, Height/Length Dosing, 96.9, kg, 04/10/23 9:26:00 EST, Weight Dosing XR Chest 2 Views Future Appointments Appointment Date:07/28/2023 08:00:00 AM Scheduled Provider:Christopher WELLS DO, FAAFP Location:[facility] [employer]metry[employer] Appointment Type: Open Appointment Date:02/01/2024 08:00:00 AM Scheduled Provider: Location:[facility] Appointment Type: Medicare Wellness Subsequent Future Scheduled Tests Laboratory* HgbA1c 03/27/22 * HgbA1c 06/25/22 * HCV Antibody RFX to Quant PCR 01/26/23 [facility]01-26-2024 Hospital Discharge instructions Patient Education 04/10/2023 11:23:39 [...] condition. Follow these instructions at home: Take khrs-iyd-dyltrdt and prescription medicines only as told by [...] and water are not available, use hand aviation all source intelligence. Avoid contact with people who have cold [...] it is easier to cough up. Take fqfx-ovk-royyiur and prescription medicines only as told by [...] provider. Document Revised: 06/12/2022 Document Reviewed: 07/03/2021 [employer] Patient Education 2022 [email or web address]. Follow Up Care 04/10/2023 09:14:32 With:Christopher WELLS Address: [address], [place] [address]- [facility] (1) When:04/13/2023 11:17:35 [facility]01-05-2024 Hospital Discharge instructions Patient Education 03/20/2023 09:32:40 [...] plan? Your health care provider or certified control systems technician can help you make a plan [...] (heat stroke). Where to find more information [employer]: www.diabetes.org Summary Exercising regularly is important for overall health, especially for people who have diabetes mellitus. Exercising has many health benefits. It increases muscle strength and bone density and reduces bodyfat and stress. It also lowers and controls blood glucose. Your health care provider or certified control systems technician can help you make an activity [...] provider. Document Revised: 11/28/2019 Document Reviewed: 11/28/2019 [employer] Patient Education 2022 [email or web address]. Follow Up Care 12/18/2022 08:59:12 With:Christopher WELLS DO, FAAFP, FAM, PED [place]: [place] [address]- When:Within 4 Month(s) [facility] 12-20-2023 Evaluation + Plan noteExtracted [...] 09:00:00 AM Scheduled Provider:Christopher WELLS DO, FAAFP Location:[facility] Appointment Type:FM Open Appointment Date:03/23/2023 08:30:00 AM Scheduled Provider:Mara Pastor PA-C Location:[facility] Appointment Type:Pain Management - Follow Up (FT) Appointment Date:02/01/2024 08:00:00 AM Scheduled Provider: Location:[facility] Appointment Type: Medicare Wellness Subsequent Future Scheduled Tests Laboratory* HgbA1c 03/27/22 * HgbA1c 06/25/22 * HCV Antibody RFX to Quant PCR 01/26/23 [facility]12-20-2023 Note [id number]2023 NoteDiagnosis: M16.12, left hip pain/osteoarthritis Procedure: [...] procedure, and agrees to continue currently prescribed/recommended therapies.[facility] Comment on above:Result Comment: Electronically Signed By: Nicola Tapia DO.maria teresa\Date and Time Signed: 03/04/23 09:06 [id number] Evaluation note* Encounter Date Diagnosis Assessment Notes [...] sooner should she deteriorate in any way Complexa Other [id number] History of Present illness Narrative* Fariha Guidry [...] I suggested that she discuss with her manager of production the addition of VBHH3ihxgzkkha or GLP agonists. Reviewed with the patient [...] complications. 5. Diabetes, managed by endocrinology in [place]. A1c remains above target, advised patient to discuss with the manager of production more aggressive therapy. 6. Hypertension completely under control. 7. High-risk medication with Xarelto, so far well-tolerated. Takes baby aspirin twice weekly 8. Stage III chronic kidney disease to be monitored closely, she follow with nephrology 9. intermittent claudications and PAD followed by vascular surgery in [place]. Patient is scheduled next week to have revascularization for intermittent claudication 10. Sleep apnea not consistently using CPAP machine. Encouraged the patient to utilize it daily. Fariha Guidry MD, [facility] Review of Systems All other systems [...] tablet, Rfl: 3 Assessment/Plan 1. Atherosclerosis of seneca-cayuga coronary artery of seneca[place] heart without angina pectoris Follow Up In Cardiology atorvastatin (Lipitor) 40 mg tablet Alanine Aminotransferase Aspartate Aminotransferase Lipid Panel 2. Status post coronary angioplasty Follow Up In Cardiology 3. Essential hypertension Follow Up In Cardiology 4. Hyperlipidemia, unspecified hyperlipidemia type atorvastatin (Lipitor) 40 mg tablet Alanine Aminotransferase Aspartate Aminotransferase Lipid Panel 5. PVD (peripheral vascular disease) ([facility]) 6. Stage 3 chronic kidney disease, unspecified whether stage 3a or 3b CKD ([facility]) 7. Sleep apnea, unspecified type [facility] Phone: [phone]) 281-341011-30-2023 Instructions* Patient Instructions* Saloni Benavides LPN - [...] Follow up 6 months [facility] Work Phone: [phone]) 221-460711-13-2023 Hospital Discharge instructions Patient Education 01/26/2023 09:01:27 [...] Carrots. Green beans. Tomatoes. Peppers. Onions. Cucumbers. [place] sprouts. Grains Whole grains, such as whole-wheat [...] meet with a certified diabetes care and physical education department chair? Do I need to meet with a dietitian? What number can I call if I have questions? When are the best times to check my blood glucose? Where to find more information: [place] Diabetes Association: diabetes.org Academy of Nutrition and Dietetics: eatright.org National [place] of Diabetes and Digestive and Kidney Diseases: [...] provider. Document Revised: 10/03/2020 Document Reviewed: 10/03/2020 [employer] Patient Education 2022 [email or web address]. 01/26/2023 09:01:11 Fall Prevention in the Home, Adult, Zvgb-ie-Sllh Fall Prevention in the Home, Adult Falls [...] Keep items that you use often in olfg-fg-wqege places. Lower the shelves around your home [...] of the way. Do not use floor zimbabwean or wax that makes floors slippery. What [...] for Disease Control and PreventionKELLEY: www.cdc.gov National [place] on Aging: www.sav[place].nih.gov Contact a doctor if: [...] provider. Document Revised: 12/02/2021 Document Reviewed: 10/03/2020 [employer] Patient Education 2022 [email or web address]. 01/26/2023 09:01:04 Hepatitis C, Pqim-lq-Xgjv Hepatitis C Hepatitis C is a liver [...] organ donations that were done in the [facility] before 1991. What increases the risk? Having [...] Follow these instructions at home: Medicines Take qesx-uoh-jkbxrlp and prescription medicines only as told by your doctor. If you were given an antiviral medicine, take it as told by your doctor. Do not stop using the antiviral even if you start to feel better. Do not take any new medicines unless your doctor says that this is okay. This includes taqx-uye-cgrgfci medicines and supplements. Activity Rest as needed. [...] not have soap and water, use hand aviation all source intelligence. Cover any cuts or open sores on [...] provider. Document Revised: 01/17/2021 Document Reviewed: 01/17/2021 [employer] Patient Education 2022 [email or web address]. 01/26/2023 09:00:41 Exercising to Lose Weight Exercising [...] your health care provider or diet and crop nutrition scientist (dietitian). This may include: ?Eating fewer calories. [...] provider. Document Revised: 04/28/2021 Document Reviewed: 04/28/2021 [employer] Patient Education 2022 [email or web address]. 01/26/2023 09:00:38 Cooking With Less Salt Cooking [...] salt. Use sodium-free baking soda when baking. [place], braise, or roast foods to add flavor with less salt. Avoid adding salt to pasta, rice, or hot cereals. Drain and rinse canned vegetables, beans, and meat before use. Avoid adding salt when cooking sweets and desserts. Cook with low-sodium ingredients. What foods are high in sodium? Vegetables Regular canned vegetables (not low-sodium or reduced-sodium). Sauerkraut, pickled vegetables, and relishes. Olives. Kenyan fries. Onion rings. Regular canned tomato sauce [...] Soy milk. Yogurt. Low-sodium cheeses, such as Marshallese, [place] Teodoro, mozzarella, and ricotta. Sherbet or ice [...] foods you can pair it with. Herbs Grundy leaves Soups, meat and vegetable dishes, and spaghetti sauce. Basil Indian dishes, soups, pasta, and fish dishes. Cilantro Meat, poultry, and vegetable dishes. [place] powder Marinades and Micronesian dishes. Chives Salad dressings and potato dishes. Cumin Micronesian dishes, couscous, and meat dishes. Dill Fish dishes, sauces, and salads. Fennel Meat and vegetable dishes, breads, and cookies. Garlic (do not use garlic salt) Indian dishes, meat dishes, salad dressings, and sauces. Marjoram Soups, potato dishes, and meat dishes. Oregano Pizza and spaghetti sauce. Parsley Salads, soups, pasta, and meat dishes. Vanita Indian dishes, salad dressings, soups, and red meats. [...] provider. Document Revised: 02/22/2020 Document Reviewed: 02/22/2020 [employer] Patient Education 2022 [email or web address]. 01/26/2023 09:00:36 BMI for Adults BMI for [...] numbers. This can be done either in Samoan (U.S[place] or metric measurements. Note that charts and online BMI calculators are available to help you find your BMI quickly and easily without having to do these calculations yourself. To calculate your BMI in Samoan ([place].S[place] measurements: 1.Measure your weight in pounds [...] Centers for Disease Control and Prevention: www.cdc.gov [place] Heart Association: www.heart.org National Heart, Lung, and Blood [place]: www.nhlbi.nih.gov Summary Body mass index (BMI) is a number that is calculated from a person's weight and height. BMI may help estimate how much of a person's weight is composed of fat. BMI can help identify thosewho may be at higher risk for certain medical problems. BMI can be measured using Samoan measurements or metric measurements. BMI charts are used to identify whether you are underweight, normal weight, overweight, or obese. This information is not intended to replace advice given to you by your health care provider. Make sure you discuss any questions you have with your health care provider. Document Revised: 11/23/2019 Document Reviewed: 09/30/2019 [employer] Patient Education 2022 [email or web address]. [facility] 10-24-2023 Evaluation + Plan noteExtracted [...] Appointments Appointment Date:01/26/2023 08:00:00 AM Scheduled Provider: Location:[facility] Appointment Type: Medicare Wellness Subsequent Appointment Date:03/12/2023 08:00:00 AM Scheduled Provider:Linda Solorio CNP Location:[facility] Appointment Type:BADH Follow Up Appointment Date:03/20/2023 09:00:00 AM Scheduled Provider:Christopher WELLS DO, FAAFP Location:[facility] Appointment Type: [facility] Scheduled Tests Laboratory* HgbA1c 03/27/22 * HgbA1c 06/25/22 [facility]10-23-2023 Evaluation note* Encounter Date Diagnosis Assessment Notes [...] understands and is agreement with that plan. Complexa Other 10-11-2023 NoteMicrobiology PROCEDURE: Wound Culture [R1] [...] Locations R1: This test was performed at: [facility], [address] [place] [address], [address] , , VgljslOhio[facility] City Methodist HospitalComment on above:Performed By: #### [id number] #### [facility] [address] [place] [address] [id number] Evaluation note* Encounter Date Diagnosis Assessment Notes [...] to see her back in 2 months. Complexa Other 08-21-2023 Evaluation note* Encounter Date Diagnosis [...] call us with any issues or concerns. Complexa Other 06-28-2023 Hospital Discharge instructions Patient Education [...] oral rehydration solution (ORS). This is an crdb-nhy-ryvqixm medicine that helps return your body to [...] drinks, sports drinks, and soda. Eat bland, hspy-ci-lycyea foods in small amounts as you are able. These foods include bananas, applesauce, rice, lean meats, toast, and crackers. Avoid alcohol. Avoid spicy or fatty foods. Medicines Take zfky-lcr-dddjtmx and prescription medicines only as told by your health care provider. If you were prescribed an antibiotic medicine, take it as told by your health care provider. Do notstop using the antibiotic even if you start to feel better. General instructions Wash your hands often using soap and water. If soap and water are not available, use a hand aviation all source intelligence. Others in the household should wash their [...] soap and water are not available, usehand aviation all source intelligence. Contact a health care provider if your diarrhea gets worse or you have new symptoms. Get help right away if you have signs of dehydration. This information is not intended to replace advice given to you by your health care provider. Make sure you discuss any questions you have with your health care provider. Document Revised: 09/11/2021 Document Reviewed: 09/11/2021 [employer] Patient Education 2022 [email or web address]. 09/10/2022 07:52:51 High-Fiber Eating Plan High-Fiber Eating [...] Bulgur wheat. Millet. Quinoa. Bran muffins. Popcorn. Thaxton wafer crackers. Meats and other proteins Rothbury beans, kidney beans, and chase beans. Soybeans. [...] Cream cheese. Sour cream. Fats and oils Mclean. Beverages Soft drinks. Other foods Cakes and [...] provider. Document Revised: 07/05/2020 Document Reviewed: 07/05/2020 [employer] Patient Education 2022 [email or web address]. Follow Up Care 06/11/2022 09:32:08 With:Linda Solorio CNP Address: When:6 months [facility] 03-29-2023 Hospital Discharge instructions Patient [...] per serving. Talk with a diet and crop nutrition scientist (dietitian) if you have questions about specific [...] Bulgur wheat. Millet. Quinoa. Bran muffins. Popcorn. Thaxton wafer crackers. Meats and other proteins Rothbury, kidney, and chase beans. Soybeans. Split peas. [...] Cream cheese. Sour cream. Fats and oils Mclean. Beverages Soft drinks. Other foods Cakes and [...] 03/02/2006 Document Revised: 01/04/2018 Document Reviewed: 01/04/2018 [employer]le Patient Education 2020 [email or web address]. 06/11/2022 09:15:20 Hemorrhoids Hemorrhoids Hemorrhoids are swollen [...] 3 times a day. General instructions Take iuga-txo-adjfzew and prescription medicines only as told by [...] 02/27/2001 Document Revised: 07/29/2019 Document Reviewed: 07/22/2018 [employer]le Patient Education 2020 [employer] 06/11/2022 09:15:19 Colon Polyps Colon Polyps [...] 11/26/2004 Document Revised: 06/17/2018 Document Reviewed: 06/17/2018 [employer] Patient Education [employer]. Follow Up Care 06/09/2022 16:22:13 With:Linda Solorio CNP Address: When:3 months [facility] [id number] Note [id number]:127[facility] 05-05-[facility] Evaluation note* Encounter Date Diagnosis Assessment Notes Treatment Notes Treatment Clinical Notes Apr, Peripheral vascular disease, unspecified (ICD-10 - I73.9) Apr, Other specified postprocedural states (ICD-10 - Z98.890) Apr, Other Peripheral arterial occlusive disease She has a good clinical outcome. I will see her back in 6 months with ABIs on that day. She will continue her current medical regimen. Complexa Other 01-24-2023 Evaluation note* Encounter Date Diagnosis Assessment Notes Treatment Notes Treatment Clinical Notes Mar, Post-op pain (ICD-10 - G89.18) Complexa Other 01-16-2023 Evaluation + Plan note Diagnostic Tests Pending * PTH Intact 03/31/22 * Immunofixation Serum 03/31/22 * Immunofixation, Urine 03/31/22 * C3 Complement 03/31/22 * C4 Complement 03/31/22 * Free K+L Lt Chains,Qn,S 03/31/22 Future Scheduled Tests Laboratory* HgbA1c 03/27/22 * HgbA1c 06/25/22 [facility] Evaluation note* Encounter Date Diagnosis Assessment Notes [...] of both lower extremities (ICD-10 - I73.9) Complexa Other 01-12-2023 Evaluation + Plan note Future Scheduled Tests Laboratory* HgbA1c 03/27/22 * HgbA1c 06/25/22 [facility]11-14-2022 Evaluation note* Encounter Date Diagnosis Assessment Notes [...] in 2 months time with the ABIs. Complexa Other Evaluation + Plan note Future Appointments Appointment Date:08/27/2021 09:30:00 AM Scheduled Provider: Location:.[facility] Appointment Type:DM Diabetes Initial command and control specialist 59 (F Appointment Date:10/16/2021 01:00:00 PM Scheduled Provider: [facility] () [facility] Evaluation + Plan note Future Appointments Appointment Date:10/15/2021 09:00:00 AM Scheduled Provider: Location:.[facility] Appointment Type:DM Diabetes Group () Appointment Date:10/28/2021 09:45:00 AM Scheduled Provider:Charis Daniel MD Location[facility] Appointment Type:Vascular New Patient () Appointment Date:12/16/2021 09:40:00 AM Scheduled Provider:Christopher WELLS DO, FAAFP Location:[facility] Appointment Type: Open Future Scheduled Tests Laboratory* HgbA1c 12/25/21 * HgbA1c 03/27/22 * HgbA1c 06/25/22 Radiology* US PVR Lower EXT Complete Bilat [facility] Future Appointments Appointment Date:10/15/2021 09:00:00 AM Scheduled Provider: [facility] Type:DM Diabetes Group (FT) Appointment Date:10/28/2021 09:45:00 AM Scheduled Provider:Charis Daniel MD Location[facility] Appointment Type:Vascular New Patient (FT) Appointment Date:12/16/2021 09:40:00 AM Scheduled Provider:Christopher WELLS DO, FAAFP Location:[facility] Appointment Type:FM Open Future Scheduled Tests Laboratory* HgbA1c 12/25/21 * HgbA1c 03/27/22 * HgbA1c 06/25/22 [facility] Future Appointments Appointment Date:12/16/2021 09:40:00 AM Scheduled Provider:Christopher WELLS DO, FAAFP Location:[facility] Appointment Type:FM Open Appointment Date:01/02/2022 01:00:00 PM Scheduled Provider: [facility] Type:DM Diabetes Group (FT) Future Scheduled Tests Laboratory* HgbA1c 12/25/21 * HgbA1c 03/27/22 * HgbA1c 06/25/22 Radiology* US LE Venous Duplex Insufficiency Bilat 10/28/21 * CTA Abd Aorto-bilat/ iliofemoral runoff 10/28/21 [facility] Future Appointments Appointment Date:12/16/2021 09:40:00 AM Scheduled Provider:Christopher WELLS DO, FAAFP Location:[facility] Appointment Type:FM Open Appointment Date:01/02/2022 01:00:00 PM Scheduled Provider: [facility] Type:DM Diabetes Group (FT) Appointment Date:02/24/2022 09:00:00 AM Scheduled Provider:Charis Daniel MD Location[facility] Appointment Type:Vascular Follow Up (FT) Future Scheduled Tests Laboratory* HgbA1c 12/25/21 * HgbA1c 03/27/22 * HgbA1c 06/25/22 [facility] Future Appointments Appointment Date:02/24/2022 09:00:00 AM Scheduled Provider:Charis Daniel MD Location[facility] Appointment Type:Vascular Follow Up (FT) Future Scheduled Tests Laboratory* HgbA1c 12/25/21 * HgbA1c 03/27/22 * HgbA1c 06/25/22 [facility] Future Appointments Appointment Date:02/24/2022 09:00:00 AM Scheduled Provider:Charis Daniel MD [facility] Type:[facility]ascular Follow Up (FT) Future Scheduled Tests Laboratory* HgbA1c 03/27/22 * HgbA1c 06/25/22 [facility] Future Appointments Appointment Date:05/21/2022 01:05:00 PM Scheduled Provider: Location:[facility] Appointment Type:Surgery FT Diagnostic Tests Pending * O & P Exam, Routine 05/08/22 * Giardia lamblia, Direct Detection EIA 05/08/22 Future Scheduled Tests Laboratory* HgbA1c 03/27/22 * HgbA1c 06/25/22 [facility] Future Appointments Appointment Date:09/10/2022 08:00:00 AM Scheduled Provider:Linda Solorio CNP Location:[facility] Appointment Type:BAD Follow Up Future Scheduled Tests Laboratory* HgbA1c 03/27/22 * HgbA1c 06/25/22 [facility] Evaluation + Plan note Future Appointments Appointment Date:03/12/2023 08:00:00 AM Scheduled Provider:Linda Solorio CNP Location:[facility] Appointment Type:BAD Follow Up Future Scheduled Tests Laboratory* HgbA1c 03/27/22 * HgbA1c 06/25/22 [facility] Evaluation + Plan note Future Appointments Appointment Date:12/18/2022 08:20:00 AM Scheduled Provider:Christopher WELLS DO, FAAFP Location:[facility] TelemetryWeb Appointment Type: Open Appointment Date:01/26/2023 08:00:00 AM Scheduled Provider: Location:[facility] Appointment Type: Medicare Wellness Subsequent Appointment Date:03/12/2023 08:00:00 AM Scheduled Provider:Linda Solorio CNP Location:[facility] Appointment Type:BAD Follow Up Future Scheduled Tests Laboratory* HgbA1c 03/27/22 * HgbA1c 06/25/22 [facility] Future Appointments Appointment Date:01/06/2023 08:30:00 AM Scheduled Provider:[facility] - New (FT) Appointment Date:01/26/2023 08:00:00 AM Scheduled Provider: Location:[facility] Appointment Type: Medicare Wellness Subsequent Appointment Date:03/12/2023 08:00:00 AM Scheduled Provider:Linda Solorio CNP Location:[facility] Appointment Type:BAD Follow Up Appointment Date:03/20/2023 09:00:00 AM Scheduled Provider:Christopher WELLS DO, FAAFP Location:[facility] Appointment Type: Open Future Scheduled Tests Laboratory* HgbA1c 03/27/22 * HgbA1c 06/25/22 [facility] Future Appointments Appointment Date:01/19/2023 09:30:00 AM Scheduled Provider: [facility] Type:WC Assessment (FT) Appointment Date:01/26/2023 08:00:00 AM Scheduled Provider: Location:[facility] Appointment Type: Medicare Wellness Subsequent Appointment Date:01/27/2023 02:00:00 PM Scheduled Provider:Denton Mares DPM [facility] Type:WC Follow Up Visit (FT) Appointment Date:02/02/2023 09:45:00 AM Scheduled Provider: [facility] Appointment Type:Surgery FT Appointment Date:02/17/2023 08:45:00 AM Scheduled Provider:Gary Cerda MD Location:[facility] Appointment Type:Pain Management - Follow Up (FT) Appointment Date:03/12/2023 08:00:00 AM Scheduled Provider:Linda Solorio CNP Location:[facility] Appointment Type:BAD Follow Up Appointment Date:03/20/2023 09:00:00 AM Scheduled Provider:Christopher WELLS DO, FAAFP Location:[facility] Appointment Type:FM Open Future Scheduled Tests Laboratory* HgbA1c 03/27/22 * HgbA1c 06/25/22 [facility] Future Appointments Appointment Date:01/26/2023 08:00:00 AM Scheduled Provider: Location:[facility] Appointment Type:FM Medicare Wellness Subsequent Appointment Date:01/27/2023 02:00:00 PM Scheduled Provider:Denton Mares DPM Location[facility] Appointment Type:WC Follow Up Visit (FT) Appointment Date:02/02/2023 09:45:00 AM Scheduled Provider: Location:[facility] Appointment Type:Surgery FT Appointment Date:02/17/2023 08:45:00 AM Scheduled Provider:Gary Cerda MD [facility] Type:Pain Management - Follow Up (FT) Appointment Date:03/12/2023 08:00:00 AM Scheduled Provider:Linda Solorio CNP Location:[facility] Appointment Type:BAD Follow Up Appointment Date:03/20/2023 09:00:00 AM Scheduled Provider:Christopher WELLS DO, FAAFP Location:[facility] Appointment Type:FM Open Future Scheduled Tests Laboratory* HgbA1c 03/27/22 * HgbA1c 06/25/22 [facility] Future Appointments Appointment Date:01/27/2023 02:00:00 PM Scheduled Provider:Denton Mares DPM [facility]oint[facility] Type:WC Follow Up Visit (FT) Appointment Date:02/02/2023 09:45:00 AM Scheduled Provider: [facility] Appointment Type:Surgery FT Appointment Date:02/17/2023 08:45:00 AM Scheduled Provider:Gary Cerda MD [facility] Appointment Type:Pain Management - Follow Up (FT) Appointment Date:03/12/2023 08:00:00 AM Scheduled Provider:Linda Solorio CNP Location:[facility] Appointment Type:BAD Follow Up Appointment Date:03/20/2023 09:00:00 AM Scheduled Provider:Christopher WELLS DO, FAAFP Location:[facility] Appointment Type:FM Open Appointment Date:02/01/2024 08:00:00 AM Scheduled Provider: Location:[facility] Appointment Type:FM Medicare Wellness Subsequent Future Scheduled Tests Laboratory* HgbA1c 03/27/22 * HgbA1c 06/25/22 * HCV Antibody RFX to Quant PCR 01/26/23 [facility] Evaluation + Plan note Future Appointments Appointment Date:02/02/2023 09:45:00 AM Scheduled Provider: Location:[facility] Appointment Type:Surgery FT Appointment Date:02/10/2023 02:30:00 PM Scheduled Provider:Denton Mares DPM [facility] Appointment Type:WC Follow Up Visit (FT) Appointment Date:02/17/2023 08:45:00 AM Scheduled Provider:Gary Cerda MD Location:[facility] Appointment Type:Pain Management - Follow Up (FT) Appointment Date:03/12/2023 08:00:00 AM Scheduled Provider:Linda Solorio CNP Location:[facility] Appointment Type:BADH Follow Up Appointment Date:03/20/2023 09:00:00 AM Scheduled Provider:Christopher WLELS DO, FAAFP Location:[facility] Appointment Type: Open Appointment Date:02/01/2024 08:00:00 AM Scheduled Provider: Location:[facility] Appointment Type:FM Medicare Wellness Subsequent Future Scheduled Tests Laboratory* HgbA1c 03/27/22 * HgbA1c 06/25/22 * HCV Antibody RFX to Quant PCR [facility] Future App[facility]ments Appointment Date:02/16/2023 01:45:00 PM Scheduled Provider: [facility] Appointment Type:WC Assessment (FT) Appointment Date:02/16/2023 02:15:00 PM Scheduled Provider: Location:[facility] Appointment Type:Surgery FT Appointment Date:02/24/2023 02:00:00 PM Scheduled Provider:Denton Mares DPM [facility] Appointment Type:WC Follow Up Visit (FT) Appointment Date:03/02/2023 08:15:00 AM Scheduled Provider:Mara Pastor PA-C Location:[facility] Appointment Type:Pain Management - Follow Up (FT) Appointment Date:03/02/2023 09:40:00 AM Scheduled Provider:Linda Solorio CNP Location:[facility] Appointment Type:BAD Follow Up Appointment Date:03/20/2023 09:00:00 AM Scheduled Provider:Christopher WELLS DO, FAAFP Location:[facility] Appointment Type:FM Open Appointment Date:02/01/2024 08:00:00 AM Scheduled Provider: Location:[facility] Appointment Type:FM Medicare Wellness Subsequent Future Scheduled Tests Laboratory* HgbA1c 03/27/22 * HgbA1c 06/25/22 * HCV Antibody RFX to Quant PCR [facility] Future Appointments Appointment Date:02/24/2023 02:00:00 PM Scheduled Provider:Denton Mares DPM [facility] Appointment Type:WC Follow Up Visit (FT) Appointment Date:03/02/2023 09:40:00 AM Scheduled Provider:Linda Solorio CNP Location:[facility] Appointment Type:[facility] Follow Up Appointment Date:03/04/2023 08:45:00 AM Scheduled Provider: Location:[facility] Appointment Type:Surgery FT Appointment Date:03/20/2023 09:00:00 AM Scheduled Provider:Christopher WELLS DO, FAAFP Location:[facility] Appointment Type:FM Open Appointment Date:03/23/2023 08:30:00 AM Scheduled Provider:Mara Pastor PA-C Location:[facility] Appointment Type:Pain Management - Follow Up (FT) Appointment Date:02/01/2024 08:00:00 AM Scheduled Provider: Location:[facility] Appointment Type:FM Medicare Wellness Subsequent Future Scheduled Tests Laboratory* HgbA1c 03/27/22 * HgbA1c 06/25/22 * HCV Antibody RFX to Quant PCR [facility] Future Appointments Appointment Date:03/03/2023 02:30:00 PM Scheduled Provider:Denton Mares DPM [facility] Appointment Type:WC Follow Up Visit (FT) Appointment Date:03/04/2023 08:45:00 AM Scheduled Provider: Location:[facility] Appointment Type:Surgery FT Appointment Date:03/20/2023 09:00:00 AM Scheduled Provider:Christopher WELLS DO, FAAFP Location:[facility] Appointment Type:FM Open Appointment Date:03/23/2023 08:30:00 AM Scheduled Provider:Mara Pastor PA-C [facility] Appointment Type:Pain Management - Follow Up (FT) Appointment Date:02/01/2024 08:00:00 AM Scheduled Provider: Location:[facility] Appointment Type: Medicare Wellness Subsequent Future Scheduled Tests Laboratory* HgbA1c 03/27/22 * HgbA1c 06/25/22 * HCV Antibody RFX to Quant PCR 01/26/23 [facility] Evaluation + Plan note Future Appointments Appointment Date:03/04/2023 08:45:00 AM Scheduled Provider: Location:[facility] Appointment Type:Surgery FT Appointment Date:03/20/2023 09:00:00 AM Scheduled Provider:Christopher WELLS DO, FAAFP Location:[facility] Appointment Type:FM Open Appointment Date:03/23/2023 08:30:00 AM Scheduled Provider:Mara Pastor PA-C [facility] Appointment Type:Pain Management - Follow Up (FT) Appointment Date:02/01/2024 08:00:00 AM Scheduled Provider: Location:[facility] Appointment Type: Medicare Wellness Subsequent Future Scheduled Tests Laboratory* HgbA1c 03/27/22 * HgbA1c 06/25/22 * HCV Antibody RFX to Quant PCR [facility] Future Appointments Appointment Date:03/23/2023 08:30:00 AM Scheduled Provider:Mara Pastor PA-C [facility] Appointment Type:Pain Management - Follow Up (FT) Appointment Date:07/28/2023 08:00:00 AM Scheduled Provider:Christopher WELLS DO, FAAFP Location:[facility] Appointment Type:FM Open Appointment Date:02/01/2024 08:00:00 AM Scheduled Provider: Location:[facility] Appointment Type: Medicare Wellness Subsequent Future Scheduled Tests Laboratory* HgbA1c 1/12/23 * HgbA1c 06/25/22 * HCV Antibody RFX to Quant PCR 01/26/23 [facility] Evaluation noteNo assessment information available [facility] Work Phone: Evaluation noteNo InformationNort [employer] Other Evaluation note* Diagnosis Atherosclerosis of [place] coronary artery of [place] heart without angina pectoris Status post coronary angioplasty Postsurgical percutaneous transluminal coronary angioplasty status Essential hypertension Unspecified essential hypertension Hyperlipidemia, unspecified hyperlipidemia type PVD (peripheral vascular disease) ([facility]) Unspecified peripheral vascular disease Stage 3 chronic kidney disease, unspecified whether stage 3a or 3b CKD ([facility]) Sleep apnea, unspecified type documented in this encounter [facility] Work Phone: History general Narrative - [...] stent 3 STENTS Hospitalization History see above Complexa Other Hisrdhu general Narrative - Reported* Type Description Date [...] LEG ANGIOPLASTY 03/2022 Hospitalization History see above Complexa Other Hospital course Narrative No data available for this section [facility] Discharge instructions No data available for this section [facility] Progress note No data available for this section [facility] Consultation (Routine) - Authorized Specialty Diagnoses / Procedures Referred By Fariha t Referred To Contact Cardiology Diagnoses Atherosclerosis of [place] coronary artery of [place] heart without angina pectoris Status post coronary angioplasty Essential hypertension Procedures Follow Up In Cardiology Fariha Guidry MD [address] [facility] [address], [place] [address] [place] [id number] Fariha Guidry MD [address] [facility] [address], [place] [place] [address] Referral ID Status Reason Start Date Expiration Date V isits Requested Visits Authorized [id number] Authorized 02/12/2023 02/12/2024 1 1 [facility] Work Phone: Chief Complaint * EVON [...] * 5. Diabetes, managed by endocrinology in [place]. A1c remains above target * 6. Hypertension completely under control. * 7. High-risk medication with Xarelto, so far well-tolerated. Takes baby aspirin twice weekly * 8. Stage III chronic kidney disease to be monitored closely * 9. Recent diagnosis of intermittent claudications and PAD followed by vascular surgery Dr. Fredy Kaplan, she is currently going through walking exercise program * Fariha Guidry MD, [facility] Summary Purpose Family History Relationship Condition [...] Provider Active [facility] Attending Provider Active [facility] Assistant Relationship Specialty Start Date End Date Christopher Wells DO [address] [place] [facility]- [address] [place] [address] PCP - General 08/02/18 INFORMATION SOURCE (unrecogn ized section and content) DATE CREATED AUTHOR 01/16/2022 [facility] DATE CREATED AUTHOR AUTHOR'S ORGANIZ ATION 01/16/2022 [employer] DATE CREATED AUTHOR AUTHOR'S ORGANIZ ATION 09/19/2022 [facility] DATE CREATED AUTHOR AUTHOR'S ORGANIZ ATION 02/14/2023 [facility] DATE CREATED AUTHOR AUTHOR'S ORGANIZ ATION 02/28/2023 [facility] DATE CREATED AUTHOR AUTHOR'S ORGANIZ ATION 03/19/2023 [facility] EPIC DATE CREATED AUTHOR AUTHOR'S ORGANIZ ATION 04/12/2023 [facility] REASON FOR VISIT (unrecogniz ed [...] BE BASED ON THE PRIMARY CLINICAL RECORDS. [email or web address] [facility]. provides no warranty or guarantee of the accuracy or completeness of information in this document.
== END 2023-04-23 07:47 | disposition home or self-care (01) ==
LOC: VC 07:47
PROVIDERS: PCP Radiology Diagnostic Radiology; Visit Provider Radiology Diagnostic Radiology
DX: I80.02 Phlebitis and thrombophlebitis of superficial vessels of left lower extremity (principal)
CPT/HCPCS: 93971; G0463

== ENCOUNTER 2023-05-04 08:48 | Outpatient (OUT) | payer MEDICARE, BC, SELFPAY ==
[2023-05-04] MEDS: LIDOCAINE HCL 20 ML, SODIUM BICARBONATE 2 MEQ INJ (08:46)
--- NOTE | 2023-05-04 08:49 | VEIN_ITS ---
[address] [address] Patient Name: GEOVANNY CORCORAN MRN: [id number] date: 1950 Sex: F Assigned Patient Location: Current Patient Location: Accession/Order Number: [id number] Exam Date: 05/04/2023 08:53 Report Date: 05/04/2023 10:25 At the request of: AIILN JC Procedure: VC Endovenous Perf Ablation LT EXAMINATION: VC Endovenous Perf Ablation LT COMPARISON: INDICATIONS: Pain due to varicose veins of bilateral legs I83.813 OPERATIVE REPORT: Diagnosis: Superficial venous reflux, incompetent perforating veins Procedure: Endovenous laser ablation of the left cement conveyor operator(s) Procedure: The patient was positioned supine on the table and the leg was prepped and draped to allow for visualization during venous access. A sterile cover was draped over a 16 mhz ultrasound probe. Venous mapping was performed prior to the procedure noting location and size of vessel(s). Packaging Operator vein 1: Left posterior mid lower leg. The diameter of the vein ranged from 3.1 mm's below the muscular fascia to 3.1 mm's at the entry point. Using a 30 gauge needle the entry site was anesthetized with 0.5 cc of 1% buffered lidocaine. Access was gained percutaneously, with a 21-gauge needle, into the cement conveyor operator vein under ultrasound guidance. The needle was advanced into the desired position and the pre-measured 400-micron fiber was then inserted into the needle and locked in place. The position of the fiber was imaged with ultrasound guidance. The fiber tip was visualized to be 10 mm from the deep vessel. An anesthetic solution of 5 cc 1% buffered lidocaine was delivered along the course of the vein under ultrasound guidance using a syringe. A final positioning check of the laser fiber tip was performed. The laser was activated by means of a foot-pedal and the fiber and needle were withdrawn together in accordance to the desired joules per treatment area/spot weld. 3 areas/spot welds were performed, and the total number of joules delivered was 178. The total time of energy delivery was 22 seconds. A duplex ultrasound revealed compressibility and flow of the deep system immediately after the procedure. Hemostasis of the access site was achieved and dressed. A 20-30 mm compression stocking over coban was placed on the treated leg. Post-Op instructions were given, and a follow-up appointment was made. Packaging Operator vein 2: Posterior medial lower left leg. The diameter of the vein ranged from 3.0 mm's below the muscular fascia to 3.0 mm's at the entry point. Using a 30 gauge needle the entry site was anesthetized with 0.5 cc of 1% buffered lidocaine. Access was gained percutaneously, with a 21-gauge needle, into the cement conveyor operator vein under ultrasound guidance. The needle was advanced into the desired position and the pre-measured 400-micron fiber was then inserted into the needle and locked in place. The position of the fiber was imaged with ultrasound guidance. The fiber tip was visualized to be 10 mm from the deep vessel. An anesthetic solution of 4.5 cc 1% buffered lidocaine was delivered along the course of the vein under ultrasound guidance using a syringe. A final positioning check of the laser fiber tip was performed. The laser was activated by means of a foot-pedal and the fiber and needle were withdrawn together in accordance to the desired joules per treatment area/spot weld. 2 areas/spot welds were performed, and the total number of joules delivered was 124. The total time of energy delivery was 16 seconds. A duplex ultrasound revealed compressibility and flow of the deep system immediately after the procedure. Hemostasis of the access site was achieved and dressed. A 20-30 mm compression stocking over coban was placed on the treated leg. Post-Op instructions were given, and a follow-up appointment was made. CONCLUSION: 1. Technically successful endovenous laser ablation of 2 lower left leg cement conveyor operator veins Electronically authenticated by: AWA SNYDER Date: 05/04/2023 10:25
--- OUTSIDE RECORDS SUMMARY | 2023-05-04 08:54 | XMS_ITS | CCD ---
Author Name Unknown Address [address] [place] [address] Organization [facility] Care Team Providers Care Academic Support Director Name Role Phone Christopher Wells Unavailable Unavailable [...] Provider Christopher Wells DO Primary Care Provider [phone] FARIHA GUIDRY Attending Unavailable CHRISTOPHER WELLS Primary [...] Unavailable Dolce, Denton Gomez Attending Unavailable Dolce, Dneton Gomez Attending Unavailable Dolce, Denton Gomez Attending Unavailable Dolce, Denton Gomez Attending Unavailable Dolce, Denton Jason Attending Unavailable Dolce, Denton Jason Referring Unavailable Belfast, Catrachito D Referring Unavailable Belfast, Catrachito Gomez Attending Unavailable Belfast, Catrachito D Admitting Unavailable KAPLE, Christopher A [...] Cerda Admitting Unavailable Gary Cerda Attending Unavailable Belfast, Catrachito D Referring Unavailable KAPLE, Christopher A Attending Unavailable KAPLE, Christopher A Admitting Unavailable KAPLE, Christopher A Referring Unavailable Belfast, Catrachito D Referring Unavailable Belfast, Catrachito D Attending Unavailable Belfast, Catrachito D Admitting Unavailable Osmin, Linda A [...] Drug Allergy 023 Unknown (qualifier value), Diarrhea [facility] 250 DO Work Phone: (20 sources) hydroCHLOROthiazide; Translations: [hydroCHLOROthiazide CAPS] Drug Allergy 023 Diarrhea [facility] 250 DO Work Phone: (20 sources) hydroCHLOROthiazide / Spironolactone; Translations: [Aldactazide] Drug Allergy 023 Weal (disorder), Diarrhea [facility] 250 DO Work Phone: (20 sources) Lisinopril; Translations: [Zestril] Drug Allergy 023 Diarrhea (finding), Diarrhea [facility] 250 DO Work Phone: (20 sources) metFORMIN; Translations: [Glucophage] Drug Allergy 023 [facility] Work Phone: (20 sources) valsartan; Translations: [Diovan] Drug Allergy 023 Unknown (qualifier value), Diarrhea [facility] 250 DO Work Phone: (20 sources) hydroCHLOROthiazide / Lisinopril; Translations: [hydrochlorothiazide-l isinopril] Drug Allergy Diarrhea (finding) [facility] (20 sources) Terazosin; Translations: [terazosin] Drug Allergy Unknown, Unknown Reaction [facility] (9 sources) metFORMIN Drug Allergy Unknown [employer] Other (7 sources) Doxazosin; Translations: [DOXAZOSIN] Drug Allergy Unknown Reaction [facility] (6 sources) hydroCHLOROthiazide; Translations: [HYDROCHLOROTHIAZIDE] Drug Allergy Unknown Reaction, Diarrhea [facility] (6 sources) Lisinopril; Translations: [LISINOPRIL] Drug Allergy Unknown Reaction [facility] (6 sources) metFORMIN; Translations: [METFORMIN] Drug Allergy Unknown Reaction, Diarrhea [facility] (5 sources) pioglitazone; Translations: [pioglitazone] Drug Allergy Unknown Reaction [facility] (5 sources) Spironolactone; Translations: [spironolactone] Drug Allergy Unknown Reaction, Hives [facility] (6 sources) valsartan; Translations: [VALSARTAN] Drug Allergy Unknown Reaction [facility] (1 source) SPIRONOLACTON-HYDROCHL OROTHIAZ; Translations: [SPIRONOLACTON-HYDROCH LOROTHIAZ] Propensity to adverse reactions to drug (disorder) 023 [place] [address] Repository (1 source) Terazosin Drug Allergy 023 [facility] Repository (1 source) Lisinopril; Translations: [Prinivil] Drug Allergy [facility] Repository Medications Current Medications Medication Drug Class(es) [...] Wheezing, 8.5 gm, Refill(s) 0, [id number], 165, cm, 04/10/23 9:26:00 EST, Height/Length Dosing, [...] # 90 tab(s), Refills(s) 3, [facility]: [id number], 166, cm, 10/28/21 9:59:00 EDT, Height/Length Dosing, [...] 6 tab(s), Refills(s) 0, [facility]: [facility] #[id number], 165, cm, 04/10/23 9:26:00 EST, Height/Length Dosing, [...] 90 tab(s), Refills(s) 1, [facility]: [facility] #[id number], 165, cm, 09/10/22 8:16:00 EDT, Height/Length Dosing, 97.4, kg, 09/10/22 8:16:00 EDT, Weight Dosing Start Date: 10/27/22 Status: Ordered cilostazol 50 mg oral tablet (10 sources) Phosphodiesterase 3 Inhibitor Start: 10-08-2021 take 1 tablet by mouth twice daily Pletal 50 mg oral tablet 50 mg = 1 tab(s), Oral, BID, # 60 tab(s), Refills(s) 5, [facility]: [facility] #[id number], 165, cm, 09/24/21 8:39:00 EDT, Height/Length Dosing, [...] 20 cap(s), Refills(s) 1, [facility]: [facility] #[id number], 165, cm, 12/18/22 8:28:00 EDT, Height/Length Dosing, [...] 5 EA, Refills(s) 11, [facility]: [facility] #[id number], 165, cm, 06/11/22 9:10:00 EDT, Height/Length Dosing, 97.6, kg, 06/11/22 9:10:00 EDT, Weight Dosing Start Date: 08/22/22 Status: Ordered Start: 08-22-2022 inject 30 [IU] by griffin bcutaneous injection twice daily Tresiba FlexTouch 100 units/mL subcutaneous solution 30 unit(s), SubCutaneous, BID, Dx E11.65, # 5 EA, Refills(s) 11, [facility]: [facility] #[id number], 165, cm, 06/11/22 9:10:00 EDT, Height/Length Dosing, [...] # 5 EA, Refills(s) 11, [facility], 166, cm, 05/10/21 8:27:00 [...] 0.4 MG Sublingual Active polyethylene glycol 3350 004335 mg / potassium chloride 1480 mg / sodium bicarbonate 5720 mg / sodium chloride 79518 mg powder for oral solution (1 source) Osmotic Laxative Start: 05-05-2022 NuLYTELY Sara ry oral powder for reconstitution See Instructions, 1 EA, Refill(s) 0, Prior to colonoscopy., [facility] #[id number], 165, cm, 05/05/22 13:40:00 EST, Height/Length Dosing, [...] 21 tab(s), Refills(s) 0, Pharmacy: [facility] #[id number], 165, cm, 04/10/23 9:26:00 EST, Height/Length Dosing, [...] 05, 2018 11:00pm Has been instructed by [facility] to stop 2 days before heart cath Start: 08-06-2018 take 20 mg by mouth once daily Rivaroxaban Active 20 MG PO Every evening August 06, 2018 12:00am Has been instructed by [facility] to stop 2 days before heart cath [...] capsule Indications: Mixed hyperlipidemia , 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 TAKE 1 CAPSULE BY MOUTH TWICE A DAY 180 capsule 3 01/19/2023 Active Start: 04-07-2022 End: 02-18-2023 Coenzyme Q10 Discontinued PO Daily April 07, 2022 12:00am February 18, 2023 9:26am Start: 11-12-2021 take 1 capsule by [facility] twice daily CoQ10 100 MG Oral [...] 90 cap(s), Refills(s) 3, [facility]: [facility] #[id number], 165, cm, 05/21/22 12:25:00 EST, Height/Length Dosing, 95.2, kg, 05/21/22 12:25:00 EST, Weight Dosing Start Date: 05/26/22 Status: Ordered Start: 04-17-2021 take 1 capsule by [facility] once daily potassium chloride 10 mEq [...] sources) Coronary atherosclerosis; Translations: [Coronary atherosclerosis of lovelock coronary artery] Onset: 09-18-19 23 09-11-2020 Chronic Coronary atherosclerosis and other heart disease (16 sources) Past history of procedure; Translations: [Percutaneous transluminal coronary angioplasty status] Onset: 01-10-2002-12-2023 Episodic Coronary atherosclerosis and other heart disease (3 sources) Coronary atherosclerosis and other heart disease; Translations: [Atherosclerosis of lovelock arteries of left leg with ulceration of [...] limb due to atherosclerosis; Translations: [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, left leg] [...] medications] Episodic Other aftercare (1 source) Other shelter (current) drug therapy; Translations: [Other shelter (current) drug therapy] Onset: 09-18-19 Episodic Other aftercare (1 source) Long-term current use of drug therapy; Translations: [Other intermodal dispatcher (current) drug therapy] Onset: 01-27-20 Episodic Other aftercare (1 source) Long-term current use of anticoagulant; Translations: [care home (current) use of anticoagulants] Onset: 01-27-20 Episodic Other aftercare (2 sources) Long-term current use of insulin; Translations: [care home (current) use of insulin] Onset: 01-27-20 Episodic [...] Consent for Treatmenton 03-17 Consent for Treatment [id number]#1.00T IFF [facility] Discharge Instructionson Discharge Instructions [id number]#1.00 TIFF [facility] ED Clinical Summaryon 2023 ED Clinical Summary (Inserted Image. Carolina ble to display) [place] [id number] ED Clinical Summary Person Information Name: EVON CORCORAN Laura[facility] Age: 72 Years : 1950 Sex: Female Language: Iraqi PCP: Christopher WELLS DO, FAAFP Marital Status: [...] 04/10/2023 11:23:38 04/10/2023 11:23:38 04/10/2023 11:23:38 ADDRESS: [address] [place] [phone] [facility] DOC NOTES: MEDICAL INFORMATION: Prescriptions Given: New Medications [facility] #[id number], [address] [place], [place] [id number], [phone] albuterol (Albuterol (Eqv-ProAir HFA) 90 mcg/inh inhalation [...] With: Address: When: Christopher Gusman, [place] [address] Business (1) In 3 days 04/13/2023 DIAGNOSIS: Bronchitis [facility] ED Note-Physicianon 04-10-19 ED Note-Physician Basic Information [...] No known sick contacts. She is taking ngwn-nma-uyiavcm cough and cold medications. Review of Systems [...] Wheezing, 8.5 gm, Refill(s) 0, [facility] #[id number], 165, cm, 04/10/23 9:26:00 EST, Height/Length Dosing, 96.9, kg, 04/10/23 9:26:00 EST, Weight Dosing azithromycin, = 1 packet(s), Oral, As Directed, as directed on package labeling, X 5 day(s), # 6 tab(s), Refills(s) 0, Pharmacy: [facility] #[id number], 165, cm, 04/10/23 9:26:00 EST, Height/Length Dosing, 96.9, kg, 04/10/23 9:26:00 EST, Weight Dosing predniSONE, 60 mg = 3 tab(s), Oral, Daily, X 7 day(s), # 21 tab(s), Refills(s) 0, Pharmacy: [facility] #[id number], 165, cm, 04/10/23 9:26:00 EST, Height/Length Dosing, [...] WELLS In 3 days 04/13/2023 EST [address], [place] [address]- [facility] (1) Additional Instructions: Patient Education Acute Bronchitis, Adult Attestation Patient seen and evaluated by the physician assistant in nursing. Attending physician was present in the emergency department and supervised care. This visit was performed by both the physician and an APC. I performed all aspects of the MDM as documented. This report was transcribed using voice recognition software. Every effort was made to ensure accuracy, however, inadvertently computerized foreman/pile driving and erection mistakes may be present. Appropriate healthcare PPE was used in evaluating this patient. The patient was placed in a mask. The healthcare provider was wearing mask, gloves, and utilizing proper hand hygiene. All equipment was properly cleansed. 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 [facility] Comment on above: Result Comment: Elec tronically [...] Follow these instructions at home: ? Take oqzb-ofd-sfybrzk and prescription medicines only as told by [...] and water are not available, use hand supervisory it specialist. ? Avoid contact with people who have [...] is easier to cough up. ? Take giik-rew-emiotcb and prescription medici (more content not included)... [facility] ED Patient Summaryon 024 ED Patient Summary (Inserted Image. Carolina ble to display) [place] [id number] Patient Discharge Instructions Person Information Name: EVON CORCORAN Age: 72 Years Arrival Date: 04/10/2023 09:13:22 Discharge Diagnosis: Bronchitis Primary Care Physician: Christopher WELLS DO, FAAFP Provider Information Primary Provider: Malvin Gupta M.D. Advanced Supervisor [employer]:Radhames Suarez PA-C The exam and treatment you received in the Emergency Department were for an urgent problem and are not intended as complete care. It is important that you follow up with a doctor, nurse practitioner, or physician?s assistant in nursing for ongoing care. If your symptoms become worse or you do not improve as expected and you are unable to reach your usual health care provider, you should return to the Emergency Department. We are available 24 hours a day. TAMARAWILLARDEVON RDZ has been given the following list of patient education materials, prescriptions and follow-up instructions: Follow-up Instructions: With: Address: When: Christopher WELLS [address] [place] [address] [place] [phone] [facility] () In 3 days 04/13/2023 In the event that this physician does not participate in your insurance network, please consult with your insurance company to find a nearby participating provider. Patient Education Materials: Acute Bronchitis, Adult A MESSAGE TO ALL PATIENTS REGARDING OPIOIDS PRESCRIPTION OPIOIDS: WHAT YOU NEED TO KNOW Prescription opioids can be used to help relieve ddunvrqd-bu-mklzms pain and are often prescribed following a [...] be struggling with addiction, tell your health customer care associate and ask for guidance or call SAMHSA?S National Helpline at 7-109-536-HELP. v Yobany (more content not included)... [facility] XR Chest 2 Viewson 4 XR Chest [...] MD Transcribed by: KATEY Technologist: JUAN MIGUEL [facility] Consent for Treatmenton Consent for Treatment [id number]#1.00T IFF [facility] Consultation Noteon 03-23-19 24 Consultation Note Patient: [...] 11, Dx: E11.9 Directions: BID, [id number], Supply, 165, cm, 06/11/22 9:10:00 EDT, Height/Length Dosing, 97.6, kg, 06/11/22 9:10:00 EDT, Weight Dosing Tresiba FlexTouch 100 units/mL subcutaneous solution: 50 unit(s), SubCutaneous, Daily, Dx E11.65, # 5 EA, Refills(s) 11, [facility]: [facility] #[id number], 165, cm, 06/11/22 9:10:00 EDT, Height/Length Dosing, 97.6, kg, 06/11/22 9:10:00 EDT, Weight Dosing chlorthalidone 25 mg Tab: 25 mg = 1 tab(s), Oral, Bedtime, # 90 tab(s), Refills(s) 1, [facility] #[id number], 165, cm, 09/10/22 8:16:00 EDT, Height/Length Dosing, 97.4, kg, 09/10/22 8:16:00 EDT, Weight Dosing potassium chloride 10 mEq Cap-ER: 10 mEq = 1 cap(s), Oral, Daily, # 90 cap(s), Refills(s) 3, [facility] #[id number], 165, cm, 05/21/22 12:25:00 EST, Height/Length Dosing, [...] Problems HTN - Hypertension / SNOMED CT 0432578377 / Confirmed Familial hypercholesteremia / SNOMED CT 4756943337 / Confirmed Non-smoker / SNOMED CT 17820106 / Confirmed 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 Type 2 diabetes mellitus with stage 3 chronic kidney disease / SNOMED CT 607084981 / Confirmed linked DM with CKD per outpatient CDI policy. Mild nonproliferative diabetic retinopathy of both eyes / SNOMED CT 632300320 / Confirmed noted in 08/21/2019 Diabetic Eye Exam. added per outpatient CDI policy. 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 [facility] Comment on above: Result Comment: Elec tronically Signed By: Dawit BARTH, Mara\.br\Date and Time Signed: 03/23/23 09:07 EST Legal Correspondence Officeo n 03-23-2023 Legal Correspondence Office [id number]#1.00 TIFF [facility] Office/Clinic Note-Physician on 03-23-2023 Office/Clinic Note-Physician [id number]#1.00 TIFF [facility] Patient Correspondenceon Patient Correspondence [id number]#1.00 TIFF [facility] Patient Correspondence [id number]#1.00 TIFF [facility] Patient Correspondence [id number]#1.00 TIFF [facility] Patient Correspondence [id number]#1.00 TIFF [facility] Patient History Officeon Patient History Office [id number]#1.00 TIFF [facility] Family Medicine Office/Clini c Noteon 03-20-2023 Family [...] re: potential procedure: Clinically currently asymptomatic and jsk-koum-pstaofwjmvx. Please see Dr. Castro's consultation 2. BMI [...] and exercise. 4. Long-term insulin use (Z79.4: computer terminal operator (current) use of insulin) Dr Ssbbagh following. 5. Mild nonproliferative diabetic retinopathy of both eyes (E11.3293: Type 2 diabetes mellitus with mild nonproliferative diabetic retinopathy without macular edema, bilateral) Follow-up with construction services technician 6. Type 2 diabetes mellitus with hypercholesterolemia (E11.69: Type 2 diabetes mellitus with other specified complication) Tresiba 50 units SQ every morning with sliding scale per med rec per Dr. Salter. Continue losartan: Sugars improved, surveillance A1c's per Dr. Ruggiero 7. Type 2 diabetes mellitus with stage (more content not included)... [facility] Comment on above: Result Comment: Elec tronically [...] plan? Your health care provider or certified appliance service technician can help you make a plan [...] stroke). Where to find more information ? [place] [employer]: www.diabetes.org Summary ? Exercising regularly is important for overall health, especially for people who have diabetes mellitus. ? Exercising has many health benefits. It increases muscle strength and bone density and reduces body fat and stress. It also lowers and controls blood glucose. ? Your health care provider or certified appliance service technician can help you make an activity [...] provider. Document Revised: 11/28/2019 Document Reviewed: 11/28/2019 [employer] Patient Education ? 2022 [employer] [facility] Nursing Note - Woundon 03-19 Nursing Note - Wound [id number]#2.00 TIFF [facility] Consultation Noteon 03-07-20 23 Consultation Note [id number]#1.00T IFF [facility] CHEMISTRYOrdered By: Lab ROP User on 03-04-2023 Glucose [Mass/Vol] 78 mg/dL Normal 55 - 99 mg/dL [facility] C POC Subsection POC Device SN [id number] Invalid Interpretation Code [facility] POC Subsection POC Username MACIE POTTS Invalid Interpretation Code [facility] POC Subsection Sodium [Moles/Vol] [id number] mmol/L Invalid Interpretation Code [facility] POC Subsection Capillary Glucose POCon 02-14 Glucose [Mass/Vol] 78 mg/dL Normal 55-99 [facility] Comment on above: Performed By: #### 2 [id number] #### [facility] Laboratory [address] [place] [address] Consent for Procedure/Surger yon 03-04-2023 Consent for Procedure/Surgery [id number]#1.00 TIFF [facility] Consent for Treatmenton 02-14 Consent for Treatment [id number]#1.00T IFF [facility] Discharge Instructionson Discharge Instructions [id number]#1.00 TIFF [facility] Insurance Correspondenceon 1 05-05-2022 Insurance Correspondence [id number]#1.00 TIFF [facility] IntraOperative Documentson 1 05-05-2022 IntraOperative Documents [id number]#1.00 TIFF [facility] Main OR Intraoperative Recor don 03-04-2023 Main OR Intraoperative Record IntraOp Document Type FTPM Summary Primary Physician: Nicola Tapia DO Finalized Date/Time: 03/04/23 09:06:01 Pt. Name: EVON CORCORAN Brent Veras/Sex: 1950 Female Med Rec #: [id number] Physician: Nicola Tapia DO Financial #: [id number] Pt. Type: P Room/Bed: / Admit/Disch: 03/04/23 [...] Leanne Montenegro Role Performed Surgeon - Primary Hostage Negotiator - Primary Scrub - Primary Time In 03/04/23 09:01:00 03/04/23 09:01:00 03/04/23 09:01:00 Time Out 03/04/23 09:06:00 03/04/23 09:06:00 03/04/23 09:06:00 Procedure HIP INJECTION(Left) HIP INJECTION(Left) HIP INJECTION(Left) Comments Last Modified By: Crow ECHAVARRIA, Estrellita Maria RN, Estrellita Ryder RN 03/04/23 09:05:56 03/04/23 09:05:56 03/04/23 09:05:56 Entry 4 Case Attendee Ervin Mckeon Role Performed Inside Wirer Time In 03/04/23 09:01:00 Time Out [...] and tissue Entry 1 Skin Integrity Intact, [facility], Warm, and Skin Abnormality No Dry Outcomes [...] injury related (more content not included)... [facility] Main OR Preoperative Recordo n 03-04-2023 Main OR Preoperative Record Holding Area Document Type FTPM Summary Primary Physician: Nicola Tapia DO Finalized Date/Time: 03/04/23 08:19:34 Pt. Name: EVON CORCORAN/Sex: 1950 Female Med Rec #: [id number] Physician: Nicola Tapia DO Financial #: [id number] Pt. Type: P Room/Bed: / Admit/Disch: 03/04/23 [...] Signed By: Macie Potts RN 03/04/23 08:19 [facility] Consent for Treatmenton 02-13 Consent for Treatment [id number]#1.00T IFF [facility] Multi-Wound Charton 03-03-20 Multi-Wound Chart [id number]#1.00 TIFF [facility] Nursing Assessment - Woundon 03-03-2023 Nursing Assessment - Wound [id number]#1.00 TIFF [facility] Physician Orderon 03-03-2023 Physician Order [id number]#1.00 TIFF [facility] Progress Note - Woundon 02-13 Progress Note - Wound [id number]#1.00 TIFF [facility] Correspondence - Woundon Correspondence - Wound [id number]#1.00 TIFF [facility] Consent for Procedure/Surger yon 02-24-2023 Consent for Procedure/Surgery [id number]#1.0 0TIFF [facility] Consent for Treatmenton 02-13 Consent for Treatment [id number]#1.00T IFF [facility] Multi-Wound Charton 02-25-20 Multi-Wound Chart [id number]#1.00 TIFF [facility] Nursing Assessment - Woundon 02-24-2023 Nursing Assessment - Wound [id number]#1.00 TIFF [facility] Nursing Note - Woundon 02-24 Nursing Note - Wound [id number]#1.00 TIFF [facility] Physician Orderon 02-24-2023 Physician Order [id number]#1.00 TIFF [facility] Procedure - Woundon 02-25-20 Procedure - Wound [id number]#1.00 TIFF [facility] Progress Note - Woundon 02-13 Progress Note - Wound [id number]#1.00 TIFF [facility] Retail - Clinical Noteon Retail - Clinical Note [id number]#1.00T IFF [facility] US venous mapping BI loweron 02-19-2023 US venous mapping BI lower [facility] Main [place] [address] [place] [address] Ultrasound Report Signed Patient: Evon Corcoran MR#: [id number] : 1950 Acct:[id number] Age/Sex: 72 / F ADM Date: 02/18/23 Loc: IR Room: Type: [facility] Attending Dr: Miguel Membreno [...] Miguel Membreno M.D.02/19/2023 1:30 PM Dictation Location: [place] [address] Tech: Isabell Duarte Transcribed By: RICH 02/19/23 1330 Dictated By: Miguel Membreno MD 02/19/23 1327 Signed By: 02/19/23 1330 Normal [facility] Blood Urea Nitrogenon 2022 Urea nitrogen [Mass/Vol] 25 mg/dL Normal 7-25 [facility] Comment on above: Performed By: #### C REAT, BUN #### [facility] [address] [id number] [place] Creatinineon 02-18-2023 Creatinine [Mass/Vol] 1.18 mg/dL Normal 0.60-1.20 [facility] Comment on above: Performed By: #### C REAT, BUN #### [facility] [address] [place] [address] [place] Creatinine Clr Calc Pharmacy 49.07 Normal [facility] Comment on above: Result Comment: PERF ORMED BY: [place] [address] PATHOLOGIST NUTRITION INTERN AIRAM ROMEO M.D. Performed By: #### C REAT, BUN #### [facility] [address] [place] [address] [place] GFR/1.73 sq M.predicted MDRD (S/P/Bld) [Vol rate/Area] 48.770 mL/min/{1.73_m2} Normal [facility] Comment on above: Performed By: #### C REAT, BUN #### [facility] [address] [place] [address] [place] Creatinine [Mass/volume] in Serum or PlasmaOrdered By: Miguel Membreno on 02-18-2023 Creatinine [Mass/Vol] 1.18 mg/dL 0.60-1.20 [facility] Lab Reportson 02-18-2023 Lab Reports [id number]#1.00T IFF Normal [facility] No Panel InformationOrdered By: Miguel Membreno on 02-18-2023 Estimated GFR (CKD-EPI) 48.770 mL/Min [facility] Creatinine Clearance (Chem 49.07 [facility] Operative Reporton Operative Report [id number]#1.00T IFF Normal [facility] Retail - Clinical Noteon Retail - Clinical Note [id number]#1.00T IFF Normal [facility] Retail - Clinical Note [id number]#1.00T IFF Normal [facility] Urea nitrogen [Mass/volume] in Serum or PlasmaOrdered By: Miguel Membreno on 02-18-2023 Urea nitrogen [Mass/Vol] 25 mg/dL 10-07 [facility] Insurance Correspondenceon 1 04-20-2022 Insurance Correspondence [id number]#1.00 TIFF Normal [facility] Physician Orderon 02-17-2023 Physician Order [id number]#1.00 TIFF Normal [facility] CHEMISTRYOrdered By: Lab ROP User on 02-16-2023 Glucose [Mass/Vol] 311 mg/dL High 55 - 99 mg/dL FT C POC Subsection POC Device SN [id number] Invalid Interpretation Code [facility] POC Subsection POC Username RONI CHOWDHURY Invalid Interpretation Code [facility] POC Subsection Sodium [Moles/Vol] [id number] mmol/L Invalid Interpretation Code [facility] POC Subsection Capillary Glucose POCon Glucose [Mass/Vol] 311 mg/dL High 55-99 [facility] Comment on above: Performed By: #### 2 [id number] #### [facility] Laboratory [address] [place] [address] Consent for Treatmenton Consent for Treatment [id number]#1.00T IFF [facility] Consent for Treatment [id number]#1.00T IFF [facility] Main OR Preoperative Recordo n 02-16-2023 Main OR Preoperative Record Holding Area Document Type [facility] Summary Primary Physician: Gary Cerda MD Finalized Date/Time: 02/16/23 13:36:16 Pt. Name: YOKASTA CORCORANLAW Veras/Sex: 1950 Female Med Rec #: [id number] Physician: Gary Cerda MD Financial #: [id number] Pt. Type: P Room/Bed: / Admit/Disch: 02/16/23 [...] 13:19 Bertha Chowdhury RN 02/16/23 13:36 Normal [facility] Multi-Wound Charton 02-17-20 Multi-Wound Chart [id number] 201 [id number]#1.00 TIFF Normal [facility] Nursing Assessment - Woundon 02-16-2023 Nursing Assessment - Wound [id number]#1.00 TIFF Normal [facility] Nursing Note - Woundon 02-16 Nursing Note - Wound [id number]#1.00 TIFF Normal [facility] Patient Correspondenceon Patient Correspondence [id number]#1.00T IFF Normal [facility] Consent for Procedure/Surger yon 02-10-2023 Consent for Procedure/Surgery [id number]#1.00 TIFF Normal [facility] Consent for Treatmenton 01-15 Consent for Treatment [id number]#1.00T IFF Normal [facility] Multi-Wound Charton 02-11-20 Multi-Wound Chart [id number] 102 [id number]#1.00 TIFF Normal [facility] Nursing Assessment - Woundon 02-10-2023 Nursing Assessment - Wound [id number]#1.00 TIFF Normal [facility] Nursing Note - Woundon 02-10 Nursing Note - Wound [id number]#1.00 TIFF Normal [facility] Physician Orderon 02-10-2023 Physician Order [id number] 102 [id number]#1.00 TIFF Normal [facility] Procedure - Woundon 02-11-20 Procedure - Wound [id number] 102 [id number]#1.00 TIFF Normal [facility] Progress Note - Woundon 01-15 Progress Note - Wound [id number]#1.00 TIFF Normal [facility] Insurance Correspondenceon 04-05-2022 Insurance Correspondence [id number]#1.00 TIFF Normal [facility] Insurance Correspondenceon 04-04-2022 Insurance Correspondence [id number]#1.00 TIFF [facility] Patient Letter [facility] January 29, [address]AN [address] [place] [address] EVON CORCORAN L 1950 We are pleased [...] in the following areas: ? Assign a Door Furring Installer who will work with you to help [...] phone contact on 02/19/2023 at 08:00 AM. [facility] Door Furring Installer [phone] opt. #2 [facility] Consent for Procedure/Surger yon 01-27-2023 Consent for Procedure/Surgery [id number]#1.00 TIFF [facility] Consent for Treatmenton 01-14 Consent for Treatment [id number]#1.00T IFF [facility] Multi-Wound Charton 01-28-20 23 Multi-Wound Chart [id number] 102 [id number]#1.00 TIFF [facility] Nursing Assessment - Woundon 01-27-2023 Nursing Assessment - Wound [id number]#1.00 TIFF [facility] Nursing Note - Woundon 01-27 Nursing Note - Wound [id number]#1.00 TIFF [facility] Physician Orderon 01-27-2023 Physician Order [id number] 102 [id number]#1.00 TIFF Normal [facility] Procedure - Woundon 01-28-20 Procedure - Wound [id number] 102 [id number]#1.00 TIFF Normal [facility] Progress Note - Woundon 01-14 Progress Note - Wound [id number]#1.00 TIFF Normal [facility] Ambulatory Visit Summaryon 03-28-2022 Ambulatory Visit Summary [...] With: Denton Mares DPM Where: [facility] [place] Thursday 9:45 AM EST With: Where: [facility] Pain Management Thursday 8:45 AM EST With: Gary Cerda MD Where: [facility] 2022 8:00 AM EST With: Linda Solorio CNP Where: [facility] Invalid Interpretation Code [address], [place] [address] \.br\ Thursday 8:00 AM EST \.br\ With:\.br\ Where: [facility] Primary Care [facility] Family Medicine Office/Clini c Noteon 01-26-2023 Family [...] of clutter to prevent tripping and/or falling. [place] Advance Directives reviewed. Documents remain at home, [...] Labs were ordered, to be completed with [facility]. Mammogram and DEXA scan up to date, [...] as directed. 3. Long-term insulin use (Z79.4: care home (current) use of insulin) Patient voices understanding with proper use of insulin dosage. Follows up with labs, DM supplies and dosage adjustments as needed. Reviewed available sites that can be used to administer Insulin, patient voices understanding. Will continue as directed. 4. Chronic renal impairment, stage 3a (N18.31: Chronic kidney disease, stage 3a) Follows with Surface Plate Inspector, Dr. Núñez. Encouraged with avoiding NSAID's. Healthy Kidney Nutritional education material provided. Goals to keep blood sugars and blood pressure under better control to reduce cardiovascular risk factors. Medications and blood work monitored with visits. Continues taking statin medication daily. 5. On statin therapy (Z79.899: Other shelter (current) drug therapy) Taking Atorvastatin daily, encouraged to eat a diet that is low in saturated fats. Stressed importance of loosing weight as being overweight does produce more lipids. Risks may also increase with a family history of hyperlipidemia. Encouraged with healthy dietary choices to reduce risk factors associated with CVA. Will continue to follow up with labs as directed. 6. 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 Hand (more content not included)... Normal [facility] Comment on above: Result Comment: Elec tronically Signed By: Christopher WELLS DO, FAAFP\.br\Date and Time Signed: 01/26/23 17:15 EST\.br\Electronically Co-Signed By: Lesly West LPN\.br\Date and Time Co-Signed: 01/26/23 09:21 EST Nursing Assessment - Woundon 01-26-2023 Nursing Assessment - Wound [id number]#2.00 TIFF [facility] Nursing Note - Woundon 01-26 Nursing Note - Wound [id number]#2.00 TIFF [facility] Patient Educationon 01-27-20 Patient Education Caregiving Fall [...] Keep items that you use often in hldf-jt-sbtfa places. Lower the shelves around your home [...] the way. ? Do not use floor kittitian or wax that makes floors slippery. What [...] Control and Prevention, [place]: www.cdc.gov ? National [place] on Aging: www.[place].nih.gov Contact a doctor if: [...] provider. Document Revised: 12/02/2021 Document Reviewed: 10/03/2020 [employer] Patient Education ? 2022 Lit[employer]. Endocrinology Diabetes Melli (more content not included)... [facility] Screenson 01-26-2023 Screens [id number] [id number]#1.00TI FF [facility] Multi-Wound Charton 01-24-20 23 Multi-Wound Chart [id number] 105 [id number]#1.00 TIFF [facility] Physician Orderon 01-23-2023 Physician Order [id number] 105 [id number]#1.00 TIFF [facility] Consent for Treatmenton Consent for Treatment [id number]#1.00T IFF [facility] Consent for Procedure/Surger yon 01-14-2023 Consent for Procedure/Surgery [id number]#1.00 TIFF [facility] Consent for Procedure/Surgery [id number]#1.00 TIFF [facility] Nursing Assessment - Woundon 01-14-2023 Nursing Assessment - Wound [id number]#1.00 TIFF [facility] Nursing Note - Woundon 01-14 Nursing Note - Wound [id number]#2.00 TIFF [facility] CHEMISTRYOrdered By: Cynthia Serrano se on 01-13-2023 HbA1c (Bld) [Mass fraction] 11.5 % High <=5.9% [facility] ChemAutoSS Consent for Treatmenton 12-16 Consent for Treatment [id number]#1.00T IFF Normal [facility] Consent to Photographon 12-16 Consent to Photograph [id number]#1.00T IFF Normal [facility] Correspondence - Woundon Correspondence - Wound [id number]#1.00T IFF Normal [facility] Correspondence - Wound [id number]#1.00T IFF Normal [facility] Correspondence - Wound [id number]#1.00T IFF Normal [facility] [id number] 01-13-2023 HbA1c (Bld) [Mass fraction] 11.5 % High <=5.9 [facility] Comment on above: Performed By: #### 2 [id number] #### [facility] Laboratory [address] [place] [address] Multi-Wound Charton 01-14-20 Multi-Wound Chart [id number] 002 [id number]#1.00 TIFF Normal [facility] Nursing Assessment - Woundon 01-13-2023 Nursing Assessment - Wound [id number]#1.00 TIFF Normal [facility] Outside Recordson 01-13-2023 Outside Records [id number] 231 [id number]#1.00T IFF Normal [facility] Patient Correspondenceon Patient Correspondence [id number]#1.00 TIFF Normal [facility] Physician Orderon 01-13-2023 Physician Order [id number] 002 [id number]#1.00 TIFF Normal [facility] Procedure - Woundon 01-14-20 Procedure - Wound [id number] 002 [id number]#1.00 TIFF Normal [facility] Progress Note - Woundon - Progress Note - Wound [id number]#1.00 TIFF Normal [facility] Insurance Correspondenceon 1 Insurance Correspondence [id number]#1.0 0TIFF [facility] Radiology Outside Office Power Barker yon 01-07-2023 Radiology Outside Office Copy [id number]#1.00 TIFF [facility] Consent for Treatmenton 12-15 Consent for Treatment [id number]#1.00T IFF [facility] Consultation Noteon 01-07-20 Consultation Note Patient: [...] red blood per rectum) / SNOMED CT 016974771 / Confirmed Breast cancer screening by mammogram / SNOMED CT 879048686 / Confirmed 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 Change in bowel habits / SNOMED CT 905038039 / Confirmed Chronic renal impairment, stage 3a / SNOMED CT 6315758294 / Confirmed Claudication of both lower extremities / SNOMED CT 748674166 / Confirmed Colon polyp / SNOMED CT 416661282 / Confirmed Degenerative localized arthritis of hip / SNOMED CT 952679128 / Confirmed 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 / SNOMED CT 382554387 / Confirmed Diabetes / SNOMED CT 495397805 / Confirmed Diarrhea / SNOMED CT 146845638 / Confirmed Enthesopathy of left hip region / SNOMED CT 04233798 / Confirmed Familial hypercholesteremia / SNOMED CT 7254482763 / Confirmed Hemorrhoids / SNOMED CT 951087100 / Confirmed History of colon polyps / SNOMED CT 0819966078 / Confirmed History of DVT in adulthood / SNOMED CT 6786579539 / Confirmed HTN - Hypertension / SNOMED CT 7757274531 / Confirmed Hypertensive heart and chronic kidney disease without heart failure, with stage 1 through stage 4 chronic kidney disease, or unspecified chronic kidney disease / SNOMED CT 6967764877 / Confirmed noted in 12/10/2021 Nephrology Consult Note page 3. added per outpatient CDI policy. Long-term insulin use / SNOMED CT 4765212582 / Confirmed Current Medication List includes Tresiba. added per outpatient CDI policy. Lumbar disc herniation / SNOMED CT 569013036 / Confirmed Lumbar stenosis / SNOMED CT 51773232 / Confirmed Mild nonproliferative diabetic retinopathy of both eyes / SNOMED CT 548435433 / Confirmed noted in 08/21/2019 Diabetic Eye Exam. added per outpatient CDI policy. Morbid obesity / SNOMED CT 785017423 / Confirmed Non-smoker / SNOMED CT 00851675 / Confirmed Primary ovarian failure / SNOMED CT 962909667 / Confirmed Sleep apnea / SNOMED CT 092774408 / Confirmed Type 2 diabetes mellitus with hypercholesterolemia / SNOMED CT 666774435 / Confirmed linked DM with hypercholesterolemia per outpatient CDI policy. Type 2 diabetes mellitus with stage 3 chronic kidney disease / SNOMED CT 436441476 / Confirmed linked DM with CKD (more content not included)... Normal [facility] Comment on above: Result Comment: Elec tronically Signed By: Prashant PIMENTEL, Gary Gomez\.br\Date and Time Signed: 01/06/23 09:13 EDT HIPAA Forms Officeon 023 HIPAA Forms Office [id number] [facility] [id number]#1.00 TIFF Normal [facility] Legal Correspondence Officeo n 01-06-2023 Legal Correspondence Office [id number]#1.00 TIFF Normal [facility] Legal Correspondence Office [id number]#1.00 TIFF Normal [facility] Office/Clinic Note-Physician on 01-06-2023 Office/Clinic Note-Physician [id number]#1.00 TIFF Normal [facility] Patient Correspondenceon Patient Correspondence [id number]#1.00 TIFF Normal [facility] Patient Correspondence [id number]#1.00 TIFF Normal [facility] Patient Correspondence [id number]#1.00 TIFF Normal [facility] Patient Correspondence [id number]#1.00 TIFF Normal [facility] Patient Correspondence [id number]#1.00 TIFF Normal [facility] Patient History Officeon Patient History Office [id number]#1.00 TIFF Normal [facility] Radiology Outside Office Power Barker yon 01-06-2023 Radiology Outside Office Copy [id number]#1.00 TIFF Normal [facility] Consent for Treatmenton 12-14 Consent for Treatment [id number]#1.00T IFF Normal [facility] MRI Pelvis (Bony) w/o contra ston 12-31-2022 [...] MD Transcribed by: KATEY Technologist: NUBIA Normal [facility] RAD - MRI Screening Formon 1 RAD - MRI Screening Form [id number]#1.00 TIFF Normal [facility] Physician Orderon 12-24-2022 Physician Order [id number] 004 [id number]#1.00T IFF Normal [facility] Physician Order [id number]#1.00T IFF Normal [facility] Outside Records Officeon Outside Records Office [id number]#1.00 TIFF Normal [facility] Referrals Officeon Referrals Office [id number] 021 [id number]#1.00 TIFF [facility] Consultation Noteon 12-23-19 Consultation Note [id number] 002 [id number]#1.00T IFF [facility] Physician Orderon 12-22-2022 Physician Order [id number] [id number]#1.00 TIFF [facility] Ambulatory Visit Summaryon 1 Ambulatory Visit Summary EVON CORCORAN :1950 Visit Date:12/18/2022 Ambulatory Visit Instructions Your Diagnosis Enthesopathy of left hip region Hypertensive heart and chronic kidney disease without heart failure, with stage 1 through stage 4 chronic kidney disease, or unspecified chronic kidney disease Long-term insulin use BMI 36.0-36.9,adult Morbid obesity Chronic renal impairment, stage 3a 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 [...] Appointments Thursday 8:00 AM EST With: Where: [facility] Primary Care Normal [address] [place] [address]- \.br\ You Need to Schedule the Following Appointments\.br\ Follow Up with RUSSELL SHEPHERD FAAFP, Christopher Montenegro, CHERISE, PED When: In 3 months\.br\ Where:\.br\ [address], [address]\ [place] [address].br\ \.br\ Medications\.br\ What How Much When Why Instructions\.br\ New doxycycline (doxycycline hyclate 100 mg Cap) 1 Capsules By Mouth 2 times a day Venous stasis ulcer Refills: 1 Pickup at [facility]\.br\ Unchanged amlodipine (amLODIPine 5 mg Tab) 1 [...] Mouth Every day\.br\ Pharmacy Information\.br\ [id number]: [address] [place], [place] [id number] [phone]\.br\ Medications and Immunizations Administered\.br\ Not Given\.br\ influenza virus vaccine, inactivated, Patient Refuses\.br\ Allergies\.br\ Aldactazide (Hives)\.br\ Cardura (Unknown)\.br\ Diovan (Unknown)\.br\ Glucophage\.br\ Hytrin\.br\ Prinivil\.br\ Zestril (Diarrhea)\.br\ hydrochlorothiazi de-lisinopril (Diarrhea)\.br\ Problems\.br\ Ongoing - Any problem that you are currently receiving treatment for.\.br\ BRBPR (bright red blood per rectum)\.br\ Breast cancer screening by mammogram\.br\ 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 \.br\ Take or apply brsk-ghx-jgfdtln and prescription medicines only as told by [...] cannot use soap and water, use hand supervisory it specialist.\.br\ ? \.br\ Change your bandage as told [...] for help if you feel david [facility] Family Medicine Office/Clini c Deliaon 12-18-2022 Family [...] ER daily. 3. Long-term insulin use (Z79.4: care home (current) use of insulin) Tresiba 50 units [...] in 6 (more content not included)... Normal [facility] Comment on above: Result Comment: Elec tronically [...] at home: Medicines ? Take or apply pase-dgg-atbfcnx and prescription medicines only as told by [...] cannot use soap and water, use hand supervisory it specialist. ? Change your bandage as told by [...] day for signs of infection. ? Take xsgc-awy-yuvuuir and prescription medicines only as told by your doctor. ? Keep all follow-up visits as told by your doctor. This is important. This information is not intended to replace advice given to you by your health care provider. Make sure you discuss any questions you have with your health care provider. Document Revised: 12/26/2021 Document Reviewed: 12/26/2021 [employer] Patient Education ? 2022 LitRes. [facility] Consultation Noteon 12-16-19 Consultation Note [id number] 002 [id number]#1.00C D:127 Normal [facility] MRI Spine Lumbar w/o Contras ton 12-09-2022 [...] by: KATEY Technologist: NUBIA Technical Comments None [facility] Consent for Treatmenton 11-15 Consent for Treatment [id number]#1.00C D:127 [facility] RAD - MRI Screening Formon 0 12-08-2022 RAD - MRI Screening Form [id number]#1.00 CD:127 [facility] Physician Orderon 11-26-2022 Physician Order [id number]#1.00CD :127 [facility] Physician Order [id number]#1.00CD :127 [facility] BD Bone Density DEXAon 11-25 BD Bone [...] MD Transcribed by: KATEY Technologist: TRISTAN Gonzalez [facility] [place] Mamm Screen w/CAD if perf and [...] very important to your health. The current [employer] and National Comprehensive Cancer [...] 2-Benign finding Recommendation: Normal interval follow-up Normal [facility] Consent for Treatmenton 11-14 Consent for Treatment [id number]#1.00C D:127 Normal [facility] Consultation Noteon 11-24-19 Consultation Note [id number] 040 [id number]#1.00CD :127 Normal [facility] Consultation Noteon 11-14-19 Consultation Note [id number] [id number]#1.00C D:127 Normal [facility] Family Medicine Office/Clini c Noteon 11-06-2022 Family [...] and some weakness, I take WC to [facility] so I walk and do Wheel Chair. Pain stays in the hip. After walking approximately 10 minutes at [facility] patient needs to get into wheelchair secondary to the pain in her left hip. Patient reports no poor color no radiation of pain into left thigh and nor leg nor foot. Diabetes is now managed per Dr. Ruggiero, her last A1c at Dr. Ruggiero's office was 8.9 and the 1 prior to that was 13. 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 Physical therapy [facility]. Patient defers x-rays and well allow access orthopedics to perform at time of evaluation. Discussed possibility of bursitis and possible injection under fluoroscopy via orthopedics Ordered: [facility] External Ambulatory Referral [facility] Outpatient Physical Therapy Evaluate Patient, Develop a Plan of Care, & Implement Plan (more content not included)... Normal [facility] Comment on above: Result Comment: Elec trojinally [...] these instructions at home: Medicines ? Take wsvs-bzj-rtztxma and prescription medicines only as told by [...] Reviewed: 02/25/2022 Elsevier Patient Education ? 2022 [employer] Normal [facility] Physician Referralon 023 Physician Referral [id number]#1.00 CD:127 Normal [facility] US arterial duplex LE LTon 0 11-04-2022 US arterial duplex LE LT [facility] [place] [address] Ultrasound Report Signed Patient: Evon Corcoran MR#: [id number] 844 : 1950 Acct:[id number] Age/Sex: 72 / F ADM Date: 11/04/22 Loc: [facility] Room: Type: [facility] Attending Dr: Renetta Barahona FRENCH INSTRUCTOR-C Ordering Provider: Renetta Barahona APRN Date of [...] MD 11/04/22 1307 Signed By: 11/04/22 1309 [facility] US ankle/arm indiceson 11-03 US ankle/arm indices [facility] [place] [address] Ultrasound Report Signed Patient: Evon Corcoran MR#: [id number] 844 : 1950 Acct:[id number] Age/Sex: 72 / F ADM Date: 11/03/22 Loc: [facility] Room: Type: [facility] Attending Dr: Miguel Membreno MD Ordering [...] MD 11/03/22 1024 Signed By: 11/03/22 1026 [facility] CHEMISTRYOrdered By: [employer] on 10-31-2022 Albumin [Mass/Vol] 3.4 g/dL Normal 3.3 - 5.0 gm/dL F [facility] Remisol Anion gap [Moles/Vol] 11 mmol/L Normal [...] rate/Area] 43 mL/min/1.73 m2 Low >=59mL/min/1.73 m2 [facility] Chem S Glucose [Mass/Vol] 316 mg/dL High [...] ratio] 22 mg/mg High 10 - 20 [facility] Remisol CHEMISTRYOrdered By: Jeniffer Rosas on 10-31-2022 Albumin Elph (U) [Mass fraction] 8.4 mg/dL Invalid Interpretation Code FT Remisol Creatinine (U) [Mass/Vol] 132.6 mg/dL Invalid Interpretation Code [facility] Remisol U Prot/Creat Ratio 63.30 mg/gm Cr Normal 0.00 - 200.00 mg/gm Cr FT Remisol Consent for Treatmenton 10-14 Consent for Treatment [id number]#1.00C D:127 Normal [facility] Physician Orderon 10-31-2022 Physician Order [id number]#1.00 CD:127 Normal [facility] Renal Panelon 10-31-2022 Albumin [Mass/Vol] 3.4 g/dL Normal 3.3-5.0 [facility] Comment on above: Performed By: #### 1 [id number], [id number] ####[facility] [address] [place] [address] Anion gap [Moles/Vol] 11 mmol/L Normal 6-16 [facility] Comment on above: Performed By: #### 1 [id number], [id number] ####[facility] [address] [place] [address] Calcium [Mass/Vol] 8.4 mg/dL Low 8.9-11.1 [facility] Comment on above: Performed By: #### 1 [id number], [id number] ####[facility] [address] [place] [address] Chloride [Moles/Vol] 104 mmol/L Normal 101-111 [facility] Comment on above: Performed By: #### 1 [id number], [id number] ####[facility] [address] [place] [address] CO2 [Moles/Vol] 27 mmol/L Normal 21-31 [facility] Comment on above: Performed By: #### 1 9784413, [id number] ####[facility] [address] [place] [address] Creatinine [Mass/Vol] 1.3 mg/dL Normal 0.5-1.3 [facility] Comment on above: Performed By: #### 1 8773065, [id number] ####[facility] [address] [place] [address] Glucose [Mass/Vol] 316 mg/dL High 55-199 [facility] Comment on above: Result Comment: If t his glucose result represents a fasting glucose, interpretation should refer to the following reference range: 55-99 mg/dL Performed By: #### 1 [id number], [id number] ####[facility] [address] [place] [address] Phosphate [Mass/Vol] 3.8 mg/dL Normal 1.9-4.6 [facility] Comment on above: Performed By: #### 1 [id number], [id number] ####[facility] [address] [place] [address] Potassium [Moles/Vol] 4.2 mmol/L Normal 3.5-5.3 [facility] Comment on above: Performed By: #### 1 9254457, [id number] ####[facility] [address] [place] [address] Sodium [Moles/Vol] 138 mmol/L Normal 135-145 [facility] Comment on above: Performed By: #### 1 2522232, [id number] ####[facility] [address] [place] [address] Urea nitrogen [Mass/Vol] 28 mg/dL High 5-21 [facility] Comment on above: Performed By: #### 1 0173665, [id number] ####[facility] [address] [place] [address] Urea nitrogen/Creatinine [Mass ratio] 22 No Units High 10-20 [facility] Comment on above: Performed By: #### 1 9953637, [id number] ####[facility] [address] [place] [address] U Protein/Creat Ratioon 10-14 Albumin Elph (U) [Mass fraction] 8.4 mg/dL Invalid Interpretation Code [facility] Comment on above: Result Comment: The reference range and other method performance specifications have not been established for this test; results should be integrated into the clinical context for interpretation. Performed By: #### 1 [id number], [id number] #### [facility] [address] [place] [address] Creatinine (U) [Mass/Vol] 132.6 mg/dL Invalid Interpretation Code [facility] Comment on above: Result Comment: The reference range and other method performance specifications have not been established for this test; results should be integrated into the clinical context for interpretation. Performed By: #### 1 2898219, [id number] #### [facility] [address] [place] [address] U Prot/Creat Ratio 63.30 mg/gm Cr Normal .00-200.00 [facility] Comment on above: Performed By: #### 1 8044062, [id number] #### [facility] [address] [place] [address] URINALYSISOrdered By: Rosa Chacon on 10-31-2022 Bacteria [...] AM) Normal Negative [facility] UA Auto SS Fellows.plasma/Lith ium.RBC (Bld) [Mass ratio] 0-3 /HPF Normal [...] AM) Invalid Interpretation Code 1.005 - 1.030 [facility] UA Auto SS UA Spec Desc Clean Catch (10/31/22 7:33 AM) Normal [facility] UA Auto SS Urobilinogen Qn (U) 0.9621392 {Donell'U}/dL Normal 0.0 - 1.0 EU/dL [facility] UA Auto SS WBC Auto Ql (U) 1+ *ABN* (10/31/22 7:33 AM) Invalid Interpretation Code Negative [facility] UA Auto SS WBC LM.HPF (Urine sed) [#/Area] 6-15 /HPF Invalid Interpretation Code 0-5/HPF [facility] UA Auto SS Urinalysison 10-31-2022 Bacteria LM Ql (Urine sed) 1+ /HPF Abnormal Trace [facility] Comment on above: Performed By: #### 1 [id number], [id number] #### [facility] [address] [place] [address] Bilirubin Ql (U) Negative Normal Negative [facility] Comment on above: Performed By: #### 1 [id number], [id number] #### [facility] [address] [place] [address] Clarity (U) CLEAR Normal Clear [facility] Comment on above: Performed By: #### 1 9159821, [id number] #### [facility] [address] [place] [address] Color (U) YELLOW Normal Yellow [facility] Comment on above: Performed By: #### 1 5693816, [id number] #### [facility] [address] [place] [address] Epithelial cells.squamous LM.HPF (Urine sed) [#/Area] 0-2 Normal 0-2 [facility] Comment on above: Performed By: #### 1 5333790, [id number] #### [facility] [address] [place] [address] Glucose Test strip (U) [Mass/Vol] 2+ Abnormal Negative [facility] Comment on above: Performed By: #### 1 8915200, [id number] #### [facility] [address] [place] [address] Hemoglobin Ql (U) Negative Normal Negative [facility] Comment on above: Performed By: #### 1 [id number], [id number] #### [facility] [address] [place] [address] Ketones (U) [Mass/Vol] Negative Normal Negative [facility] Comment on above: Performed By: #### 1 7635677, [id number] #### [facility] [address] [place] [address] Fellows.plasma/Lith ium.RBC (Bld) [Mass ratio] 0-3 Normal 0-3 [facility] Comment on above: Performed By: #### 1 4443409, [id number] #### [facility] [address] [place] [address] Nitrite Ql (U) Negative Normal Negative [facility] Comment on above: Performed By: #### 1 7887082, [id number] #### [facility] [address] [place] [address] pH (U) 6.0 [pH] Invalid Interpretation Code 5.0-9.0 [facility] Comment on above: Performed By: #### 1 2860414, [id number] #### [facility] [address] [place] [address] Protein (U) [Mass/Vol] Negative Normal Negative [facility] Comment on above: Performed By: #### 1 6716184, [id number] #### [facility] [address] [place] [address] Specific gravity (U) [Rel density] 1.025 Invalid Interpretation Code 1.005-1.030 [facility] Comment on above: Performed By: #### 1 0907217, [id number] #### [facility] [address] [place] [address] Type of Urine collection method Clean Catch Normal [facility] Comment on above: Performed By: #### 1 1557742, [id number] #### [facility] [address] [place] [address] Urobilinogen Qn (U) 0.2 {Donell'U}/dL Normal 0.0-1.0 [facility] Comment on above: Performed By: #### 1 5877060, [id number] #### [facility] [address] [place] [address] WBC Auto Ql (U) 1+ Abnormal Negative [facility] Comment on above: Performed By: #### 1 6529777, [id number] #### [facility] [address] [place] [address] WBC LM.HPF (Urine sed) [#/Area] 6-15 Abnormal 0-5 [facility] Comment on above: Performed By: #### 1 1687207, [id number] #### [facility] [address] [place] [address] eGFRon 10-31-2022 GFR/1.73 sq M.predicted among non-blacks MDRD (S/P/Bld) [Vol rate/Area] 43 mL/min/1.73 m2 Low >=59 [facility] Comment on above: Order Comment: Order added by Discern Expert. Result Comment: Receiving Room Clerk jin kidney disease could be indicated at eGFR's of less than 60 mL/min/1.73m2. Kidney failure is indicated at less than 15 mL/min/1.73m2. Performed By: #### 1 7141431, [id number] ####[facility] [address] [place] [address] RAD - Ultrasound Reporton RAD - Ultrasound Report [id number]#1.00C D:127 Normal [facility] Retail - Clinical Noteon Retail - Clinical Note [id number]#1.00C D:127 Normal [facility] VAS LAB Carotid Artery Dupl ex Ultrasounon 09-17-2022 VAS LAB Carotid Artery Duplex Ultrasoun [address], [address] [facility] [address] Vascular Lab Report Carotid Artery Duplex Ultrasound Patient Name: EVON Mckeon Physician: [id number] Fariha Guidry MD, [facility] Study Date: 09/17/2022 Referring FARIHA GUIDRY Physician: MRN/PID: [id number] PCP: Christopher Wells DO Accession/Order#: [id number] CC Report to: Date of : 1950 Technologist: PRAVEENA Gender: F Technologist 2: Admission Status: Outpatient Location Performed: [facility] Diagnosis/ICD: R04-Bhpwalleh and giddiness; I73.9-Peripheral vascular disease, unspecified Indication: CAD, PTCA, High Risk Medication Use, Vascular Disease, Diabetes, HTN, Hyperlipidemia, CKD-Stage III, DVT, MORALES, Obesity Procedure/CPT: 25679 Cerebrovascular Carotid Duplex scan complete-36229 CONCLUSIONS: Right Carotid: Findings are consistent with [...] cm/s Right Left ICA/CCA Ratio 1.4 2.0 49386 Fariha Guidry MD, FACC Final Normal [facility] VASC LAB Carotid Artery Dupl ex Ultrasoundon 09-17-2022 US.doppler Carotid arteries -[facility]-Sandu feliz [address] DO Work Phone: [...] (bright red blood per rectum) CAD in [place] artery Change in bowel habits Chronic renal impairment, stage 3a Claudication of both lower extremities Colon polyp Diarrhea Familial hypercholesteremia Hemorrhoids History of colon polyps History of DVT (more content not included)... Normal [facility] Comment on above: Result Comment: Elec tronically [...] Bulgur wheat. Millet. Quinoa. Bran muffins. Popcorn. [place] wafer crackers. Meats and other proteins Capitanejo beans, kidney beans, and chase beans. Soybeans. [...] Cream cheese. Sour cream. Fats and oils [place]. Beverages Soft drinks. Other foods Cakes and [...] Document Revised: (more content not included)... Normal [facility] Medication Refillon 08-23-19 Medication Refill [id number]#1.00C D:127 Normal [facility] CBC w/Indiceson 08-01-2022 Erythrocyte distribution width (RBC) [Ratio] 14.0 % Normal 10.9-14.2 [facility] Comment on above: Performed By: #### 1 4873104, [id number] #### [facility] [address] [place] [address] Hematocrit (Bld) [Volume fraction] 39.9 % Normal 34.0-46.0 [facility] Comment on above: Performed By: #### 1 7542306, [id number] #### [facility] [address] [place] [address] Hemoglobin (Bld) [Mass/Vol] 12.7 g/dL Normal 12.0-16.0 [facility] Comment on above: Performed By: #### 1 5551136, [id number] #### [facility] [address] [place] [address] MCH (RBC) [Entitic mass] 27.9 pg Normal 27.0-34.0 [facility] Comment on above: Performed By: #### 1 1087625, [id number] #### [facility] [address] [place] [address] MCHC (RBC) [Mass/Vol] 31.8 g/dL Normal 31.4-36.0 [facility] Comment on above: Performed By: #### 1 4685511, [id number] #### [facility] [address] [place] [address] MCV (RBC) [Entitic vol] 87.6 fL Normal 80.0-100.0 [facility] Comment on above: Performed By: #### 1 0071313, [id number] #### [facility] [address] [place] [address] Platelet mean volume (Bld) [Entitic vol] 10.5 fL Normal 6.4-10.8 [facility] Comment on above: Performed By: #### 1 4406962, [id number] #### [facility] [address] [place] [address] Platelets (Bld) [#/Vol] 227.0 E9/L Normal 150.0-500.0 [facility] Comment on above: Performed By: #### 1 4254064, [id number] #### [facility] [address] [place] [address] RBC (Bld) [#/Vol] 4.6 E12/L Normal 4.3-5.9 [facility] Comment on above: Performed By: #### 1 0783471, [id number] #### [facility] [address] [place] [address] WBC corrected for nucl RBC Auto (Bld) [#/Vol] 7.3 E9/L Normal 4.0-11.0 [facility] Comment on above: Performed By: #### 1 9741409, [id number] #### [facility] [address] [place] [address] Consent for Treatmenton 07-14 Consent for Treatment [id number]#1.00C D:127 Normal [facility] Lipid Panelon 08-01-2022 Cholesterol [Mass/Vol] 128 mg/dL Normal 120-200 [facility] Comment on above: Performed By: #### 1 6101992, [id number] #### [facility] [address] [place] [address] Cholesterol in HDL [Mass/Vol] 47 mg/dL Invalid Interpretation Code [facility] Comment on above: Result Comment: HDL > or equal to 60 mg/dL: Low cardiovascular risk HDL < 40 mg/dL : High cardiovascular risk Performed By: #### 1 2794029, [id number] #### [facility] [address] [place] [address] Cholesterol in LDL [Mass/Vol] 59 mg/dL Normal <=129 [facility] Comment on above: Performed By: #### 1 5506998, [id number] #### [facility] [address] [place] [address] Cholesterol in VLDL [Mass/Vol] 27 mg/dL Normal 7-40 [facility] Comment on above: Performed By: #### 1 2003349, [id number] #### [facility] [address] [place] [address] Triglyceride [Mass/Vol] 133 mg/dL Normal <=149 [facility] Comment on above: Performed By: #### 1 0270757, [id number] #### [facility] [address] [place] [address] Physician Orderon 08-01-2022 Physician Order [id number]#1.00 CD:127 [facility] Reminderson 2022 Reminders - From: Adore Back [...] patient was seen on 06/11/22 by Linda [facility] Retail - Clinical Noteon Retail - Clinical Note [id number]#1.00C D:127 [facility] Ambulatory Visit Summaryon 0 06-11-2022 Ambulatory Visit [...] AM EDT With: Linda Solorio CNP Where: [facility] Normal [facility] Gastroenterology Office/Clin ic Noteon 06-11-2022 Gastroenterology Office/Clinic [...] was previ (more content not included)... Normal [facility] Comment on above: Result Comment: Elec tronically Signed By: Linda Solorio CNP\.br\Date and Time Signed: 06/11/22 09:30 EDT Patient Educationon 06-12-19 Patient Education [facility] High-Fiber Diet Fiber, also called dietary [...] serving. ? Talk with a diet and dairy nutrition consultant (dietitian) if you have questions about specific [...] Bulgur wheat. Millet. Quinoa. Bran muffins. Popcorn. [place] wafer crackers. Meats and other proteins [place]jo, kidney, and chase beans. Soybeans. Split peas. [...] Cream cheese. Sour cream. Fats and oils [place]. Beverages Soft drinks. Other foods Cakes and [...] 03/02/2006 Document Revised: 01/04/2018 Document Reviewed: 01/04/2018 [employer] Patient Education ? 2019 [employer] Gastro (more content not included)... Normal [facility] Reminderson 06-11-2022 Reminders - From: Linda Solorio CNP To: Doretha Henry; Sent: 06/11/2022 09:24:04 EDT Show up: 06/11/2022 09:24:00 EDT Subject: Ambulatory Reminder Reminder/Recall Colonoscopy in 2029. [address] benson 05/21/2029 From: Doretha Henry To: [facility] - Reminders/Recalls; Sent: 06/11/2022 12:14:24 EDT ! Show up: 04/16/2029 12:14:00 EST Due Date/Time: 05/14/2029 12:14:00 EST Normal [facility] IntraOperative Documentson 0 05-30-2022 IntraOperative Documents [id number]#1.00C D:127 Normal [facility] Result Letter Officeon 05-30 Result Letter Office May 30, [address] [place] [address] EVON CORCORAN 1950 Below is a summary [...] letter prior to your next due date. [facility] [phone] Normal [facility] Postoperative Documentson Postoperative Documents [id number]#1.00C D:127 Normal [facility] Coding Summary.on 05-26-2022 Coding Summary. CD:[id number] Gh0 bWw+PGhlYWQ+QS8ERCQhQ42 ilZAfhU2pY0XWGIvBUmgnFM PVGFdNRhNsjyMaAI2lrOZnT XJu IC8+VR2gNTPtKjrskPSui5D 4fDG8W37jel1aNCzhrTC8TZ HaVxOowkiyk1hikJy1NVzoI mluOyBt ZZMkzS62LZP1jM94Ec28yAP mnHWrw4cxpCq0XvVoRDOkYQ S5ePhcNDumu9LgQFCfI50vo LXxi7F3 OKKmgZphhXTbWbYrlZK9aZ2 gYNhzvfuuu3brytyoHur3gf 55rFXrb2F7kBB7B9NbazG8J GJvbGQg OdyizXWRgZ9dnhrws0bgzwv aDpRtWESqTEc2CLt9NFArsA luJkNxGH45GOL0OYNeynHrX 2FsLWFs bWcqCvE7a3K4Ed2NX6LHVkh mI4OWRYPGEMncuZL+PC90cj 01V5FmTkwcAhx2STJgXIL4n RS5lL3t XSKdDTmpv8P2uHL3Y9FdhiR wwk7al0zuEUThSVkmQ57vxI Amf4X3VTMadVL7ICPvpCliV iBzaG93 Oyc+GTIzaIndi8UbAliyf8x kk7iubEh6WkxaJFIqghRbvV jdJPC1c1PnLd6oDHKhtCQ2q EZ3oB9n TmDuRnA1KJvbZ424IlMobXU uGsuyE88sT1YuwBF+PHRyPj e4TJPfqJvuXW1tV0SwSCWod mctbGVm uFjyIS7cFOWgidysLPFzhL6 rEQGpP3j0QrGuDwM2DSrwX9 InRSLbdczhPn57cQ0vOtLbN rN8XJeh I7QibcK4RPKjeVXcEAuuSHD 4V44kw7J8ZABnGGNqMNI8eK N8kU6asJgtlzizxECeuMiqz mVydGlj RFnlWWtyX314XRQysWffDnA vZGluZyBEYXRlOiAgMDMvMT MvMjAyMzwvdGQ+GDRyVPV3v WxlPSAn hZFvSSytCv6ykKplbDdvKN7 gDVDgjosiNPIriW7wSXGneA MsaPkjJM6iBRYhagiot140B iAxMHB0 JREamSTvX8WgkM1tVqBtWSK oZYYcP2VnbTUrATncI342YT ajDbB6BYSebdCwO5MoCTSjn WduOiB0 y8D2Tt3Me1IsuzhcT5UojSJ gZiHuXsfkEFw0F7PiBzqtsC I+GF41TQVxII53PEi4EOT7t WxlPSdi SPXmI1RurC9yLbUzIQTkUMG kOyc+PHRhYmxlIHdpZHRoPS tyFITeQeVzeUfjVI3uKm2aS GVyLWNv kNosgWToFeGlh3ksMMZfCEv tRQ1lgXhiH1GbqQK6WDIgi1 h3Yx53B30eT5SnfAP+PGNvb SL0eVB3 cO9aFeEgIoA6EEyoX465UiJ yhJPbVjsps6miw1bfjUj5Gb J6OIDfiwFhbNkiYVH1o1JwF b18G24d IHdpZHRoPSIxNSUiIHZhbGl hvi0tjG8cKt2+VLUtdVM9aG T3zR1gZnFtXpT4SZsxJ288A nRvcCIv Tzlhb8nqr0vpnFp9FlXpDAP skqBjbWqqXYQ4w0QqPf53X8 WikRmsw9DbYkc6aw32wCZtz 5X8rKF6 W0LyTBQqxxoxlECnfYfbBL8 vSUNvrtytSWBxoQ5hUXBdR4 k4DhHuRaD2CJdjG9AxjqB9D GJvbGQg ECWjvZINeZ8wppypu2qrwpe kKpFsDQLgAJz6YUx9EOKzlT ooWpHrQPI9UhQ1HHW5qRLmh B4stWbs ykmxoJ2oHwg+KFQ3xYQeiTD IQN5wWxhzcUA+QJYiBEJ1uD ahRApwWBFudI8bVBUmJ2i9L iAwLjA1 FAlmS0KwfzJ3RFKjvQRaQZX rmRFShC9nvgeoh6jjckzjEx XjGZTgTBx7MWl1SHBbuUlnI iBsZWZ0 PhO3IDU5lMQfuM4deNooeux zwD7lSfa+QvalnAfqKNO3ED a4U3TxEjl1SDAtmDliDS0ey GFkZGlu Py0mqNlkkVlgBL0gWAVzplx wt449VdSjn4zeMQPssBQvCO etQVF9X00pl0Z7HGRlMEQvJ VE0oEX1 iE5wvUohbuaiuORpqCshtwM gcWjvWMomOExnN743NIIqaO amMoXfTFl6W0OzGeu9YKOji VttIZ0e pTZeZTraWd2lzZvudXcrZG5 tDXAvlnecy290LbAki3fpPX FvqWCvOPdmGZZ5J92yf3N8T CMwMDAw CVC4kFO7rI5stMycthfqoTA mdDsgdmVydGljYWwtYWxpZ2 96XSAplSrzUyByfGd0C5RgL mn5TXXh vSttJQ6nvLPaOBnbFv9vtXa zxBbnMV4wOXLrmuqii630Tm Sow6nrKWGjzBBuCJtqVMN8K 14vg5A2 NXHsSEJnXOC7zPU5qK0wfQo nbjogbGVmdDsgdmVydGljYW xgELqyQ631YVPofGvoSgSnx GllbnQg RDyhWAd5J0OeMkzyxIX+PC9 6WSNtNI31wPUpqBSic2heaZ l4GjEpDWIgOZM7iCzyNIcbe 3JkZXIt I14gzVCjw3H0ILQsuFcmaUC gDpFjzGM1uO2oZIzeptete0 vedzpvPgovd1qmid64oZ30O 29sIHdp ZHRoPSIzMCUiIHZhbGlnbj0 byD8pTz0+AWWtdHR7vTT6oM 0gGETlIpR2WEagH074XtJbu CIvPjxj i2hpo6laqNh3FuV8WIRpivB vqJzqDRG1t2OgFh81Y41dVX dpZHRoPSIyMCUiIHZhbGlnb n8plX4d Ii8+ASCtgGC7wNZ1nX0fNmG jEvZ4IOzbO008ErZzpPUzCy xyT22vP0LdfCM+UREgOvg7K CBzdHls QW7lbNMpSMrrRy1cZSJ5BrE yJoLnDFiqY5LyIGEiuhgtsc iscFJ1ZIDeDSEirA71Qk0ny DogMTBw zVWEpU2twilfm0gkfnlcRcU vDZQjHPq5SRy6NDQzdNeiVn YzSDV6IgB9ULT6bBSfdT3do Glnbjog jB0cJ6UjCAPvlmiyFb58hV6 lWxScOwG0EHldRtk+VFJVTV LGR1EWMEEPSHHKDdIHMZ16L E25vKGa w4I0yMN8S0OoJVFlncusawl ugUN5RRYsTRZelW82hIKiJR anBa1kg7X5k455PGCcXQIlc F44Jh6t eVjcWFDfsRHMvZ1abqldy2w zqwzkRuDtZFUzTJs6SJc5UF BipLkrKoGlGJF6LlT1LBS5f OWvfX8p tYqozcymwN9qZug+MDQvMTE bIZo4ZFvexPA+DLApQXG6eE inZNuyWNDzqK5lBCHpD5r6L iAwLjA1 YYujW8KhXSFesbtlHx94gI2 vCeIlFwY7QLmbK0EijkG0UK UciMLzPXavBLX8N19ba8O6I CMwMDAw HRF9fIV2xG1jjLesfgxqmZI mdDsgdmVydGljYWwtYWxpZ2 46IHRvcDsnPjcyIFllYXJzP C10VZ10 yWOoe7I0qIS3W5LfNRFmqbx rsrczwZP4UZNhVMEwbS52lB YlHWgaSb2ks9N0w588XXUmP DUwaW47 Kk1cmUmzNOXtmFIQhH1qyeu ce6baffdxAgHqRLSoSDp9SA s3NTNeyAdkJwTrPRZ8OtP1I CJ2iVQu iE5jsBdyaurfpK4aVlm+RmV aUKuqHD02SL26hMIjm8F0sB L2U6ZkNSDiuqwatgvywID4I DAuMDUw sK37dOVoYSwqOg0dd6J5w60 6VIFtUPYtjP15Fq8zbAosUG UjxMHJhY9nsopxm8kvxskjR zAwMDAw VYr5LWr1AUGckFpeNpQdOXC 9QgI1UGY3nWFgpU0loRtbcx zwaC2dUfb+H3Y2uUH8lARvo DwvdGQ+ TZ54ul98D3EfIiryYek4TKJ rNNM2hMR1sL4uAEVyVKoqb8 Z5zMT1U9SskePlbv7dr7tcH XBzZTog E57jdIEnk5R3WQRyoVB7QKO opDouHaPyoU39Xxl+PGNvbG ifs7CcTimxg7vmp9mgsYz5E jMwJSIg vdEyxTvoRHZ5c7ZkSy80Z06 sIHdpZHRoPSIzMCUiIHZhbG eggk9nmZ2lPp5+CKLgiLJ6u IC3wZ1j HzArHvU0YLckC635RhYpsZG uAiruj4btv3qojEe4VtNbQQ RhxhJhpGtvNJQ2i8EuRt51S 2NvbGdy k7FnNms2jo67xBTwx2I3jVT 3V9MlATHdvwcblSOueQeaYA 6wZNAlteafZPJzqS9sBKAuT 1o0DyPf JnD4WBryF3ZewdZ3JIHumSW xAWPnlISYqJ1wonfpc1pbtw ukBxLbENAoUVd1GUk7BYXqs WduOiBs NMW9QpW8WXP8lZAeaQ1aeEr ehdzjrD3xCon+CCy3g7ofoM UcUT2azUE1AJ13XN14bIRil 4E1gHW5 O0FzDUVfkomrqviivGY5LPZ pUNOhfF22Rs2igDvhLs5jKR BdEHW3WQXwkXWkC8OvpC0kP iAjMDAw OBXcQ0HnhJQqELxdR788SDs hGoO5JYNapjNkS7OlXPFttK nnKjX5a4S0Fb2NQC96VV33W I97lKVz f8S5bTM1E9NxVXOlmlxofpc gpEL9MQTvHKHmiG96Jk0ihX yaKp3tPIImKHD4AJHusLJqC 2QiqS5g OsZaOKZhLZXvM3NgrJZgLIw eG658SQqdVjI8ZMDxpmSsW2 WtPSDguEqpHwA8f2C9Cp4QA u73AS16 PS15ePWsl3G5nRZ0I6GjWDJ ypegsmtjhoZM6BLUbHFPkkV 15Ad1arUqsMi6vRHXcFGE6M FRpbWVz Z0XroG3sQgZnXUKpYYSwZ9B ywJQiXOsqG905VHgbDmC2UD GzdwLcO3SzJXFvuAewOwB6f 9U7Zz5P SHlokcl7L4BwDkqnfNY+PC9 2RYLcMA81iRDxnXEtt7exoQ o1AcOpJCHbGLF3vCucQSxuh 3JkZXIt Y29s (more content not included)... Normal [facility] Main OR Intraoperative Recor don 05-26-2022 Main OR Intraoperative Record IntraOp Document Type FT Summary Primary Physician: Luis BENSON MD Finalized Date/Time: 05/26/22 08:45:38 Pt. Name: EVON CORCORAN /Sex: 1950 Female Med Rec #: [id number] Physician: Luis BENSON MD Financial #: [id number] Pt. Type: O Room/Bed: / Admit/Disch: 05/21/22 [...] Johnston RN, Esha Diane Role Performed Anesthesiologist Hostage Negotiator - Primary Staff - Other Merchandise Displayer Time In 05/21/22 13:14:00 05/21/22 13:14:00 05/21/22 [...] and tissue Entry 1 Skin Integrity Intact, [place] [facility], Warm, and Skin Abnormality No Dry Outcomes [...] of positioning (more content not included)... Normal [facility] Consenton 05-22-2022 Consent [id number]#1.00 CD:127 Normal [facility] Discharge Instructionson Discharge Instructions [id number]#1.00 CD:127 Normal [facility] Consent for Treatmenton Consent for Treatment [id number]#1.00C D:127 Normal [facility] Endoscopic Procedure Report - Otheron 05-21-2022 Endoscopic [...] Return to activities:: After 24 hours. Normal [facility] Comment on above: Result Comment: Elec tronically Signed By: Luis BENSON MD\.br\Date and Time Signed: 05/21/22 13:31 EST Other Comment: Soila ariza Attachment - attachment storage system not supported [id number] Can be viewed in source systemMissing Attachment - attachment storage system not supported [id number] Can be viewed in source system Inpatient Patient Summaryon 05-21-2022 Inpatient Patient Summary [address] [address] [facility] Clinical Discharge Instructions PERSON INFORMATION Name: EVON CORCORAN [facility]#:[id number] PHYSICIANS Admitting Physician: Luis BENSON MD Attending Physician: Luis BENSON MD PCP: Christopher WELLS DO, FAAFP Discharge Diagnosis: Diarrhea Comment: PATIENT EDUCATION INFORMATION Instructions: Colonoscopy, Care After Surgery Marcelino (ARLENE); Colon Polyps Medication Leaflets: Follow up: With: Address: When: Luis BENSON [address] [place] [address]. [address] [place], [place] [id number] Tapru (1) Comments: office will call for follow [...] Q-10) By Mouth every day. Comment: Normal [facility] Main OR PACU I Recordon Main OR PACU I Record PACU Phase I Document Type FT Summary Primary Physician: Luis BENSON MD Finalized Date/Time: 05/21/22 15:15:56 Pt. Name: NILOEVON/Sex: 1950 Female Med Rec #: [id number] Physician: Luis BENSON MD Financial #: [id number] Pt. Type: O Room/Bed: / Admit/Disch: 05/21/22 [...] By: Maryellen Bonilla RN 05/21/22 15:15 Normal [facility] Main OR Preoperative Recordo n 05-21-2022 Main OR Preoperative Record Holding Area Document Type FT Summary Primary Physician: Luis BENSON MD Finalized Date/Time: 05/21/22 12:19:52 Pt. Name: EVON CORCORAN/Sex: 1950 Female Med Rec #: [id number] Physician: Luis BENSON MD Financial #: [id number] Pt. Type: O Room/Bed: / Admit/Disch: 05/21/22 [...] By: Fritz Dover RN 05/21/22 12:19 Normal [facility] Monitor Recordon 05-21-2022 Monitor Record [id number]#1.00C D:127 Normal [facility] Monitor Record [id number]#1.00C D:127 Normal [facility] Outpatient Surgery Discharge Instructionon 05-21-2022 Outpatient Surgery Discharge Instruction [address] [address] Patient Discharge Instructions PERSON INFORMATION [...] Follow up: With: Address: When: Luis Dow [address] [place], [place] [id number] Business (1) Comments: office will call for follow up Pharmacy Information: [facility] You may receive a survey from [employer] asking you to rate your care experience. Your feedback is important and will help us understand what we do well and how we can improve the quality of care we provide to you, your loved ones and our community. It?s an honor to serve you. Thank you for choosing [facility] HERE ARE THE MEDICATION CHANGES THAT OCCURRED [...] Some feelings (more content not included)... Normal [facility] Patient Education - Texton 0 05-21-2022 Patient [...] that are (more content not included)... [facility] Progress Note-Physicianon Progress Note-Physician Patient: EVON CORCORAN Age: 71 years Sex: Female : 1950 Associated Diagnoses: None Author: Nahun PIMENTEL, Vinod Greer Postoperative Information Postoperative disposition: Postoperative disposition: To PACU. Optimetrix number: Optimetrix number [id number]. Anesthetic utilized: General. Physical Examination Vital Signs [...] meets criteria ( To home ). 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 / SNOMED CT 31463874 / Confirmed Change in bowel habits / SNOMED CT 867177283 / Confirmed Chronic renal impairment, stage 3a / SNOMED CT 6057340069 / Confirmed Claudication of both lower extremities / SNOMED CT 153032292 / Confirmed Familial hypercholesteremia / SNOMED CT 3816342297 / Confirmed History of colon polyps / SNOMED CT 5291878199 / Confirmed History of DVT in adulthood / SNOMED CT 2486291308 / Confirmed HTN - Hypertension / SNOMED CT 3746817353 / Confirmed Hx of colonic polyps / SNOMED CT 3953017809 / Confirmed Internal hemorrhoids with complication / SNOMED CT 0557969137 / Confirmed Mild nonproliferative diabetic retinopathy of both eyes / SNOMED CT 980664267 / Confirmed noted in 08/21/2019 Diabetic Eye Exam. added per outpatient CDI policy. Non-smoker / SNOMED CT 85510681 / Confirmed Type 2 diabetes mellitus with hypercholesterolemia / SNOMED CT 785540211 / Confirmed linked DM with hypercholesterolemia per outpatient CDI policy. 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 [facility] Comment on above: Result Comment: Elec tronically Signed By: Nahun PIMENTEL, Vinod Greer\.br\Date and Time Signed: 05/21/22 12:46 EST Giardia, Direct, EIAon 05-14 G. lamblia Ag IA Ql (Stl) Negative Invalid Interpretation Code Negative [facility] Comment on above: Result Comment: Perf ormed at: [address] [id number] PhD Armin Zaldivar Performed By: #### 1 [id number], [id number], 27679267, 45933492, 81768595, [id number] ####[facility] [address] [place] [address] O & P EXAM, ROUTINE, REFLEXo n 05-14-2022 Ova and parasites identified Concentration Nom (Stl) Comment Invalid Interpretation Code [facility] Comment on above: Result Comment: No o va, cysts, or parasites seen. One negative specimen does not rule out the possibility of a parasitic infection. Performed at: [address] [id number] PhD Armin Zaldivar Performed By: #### 1 [id number], 51250986, 14147796, 32878259, 97193337, [id number] ####[address] [place] [address] O & P Exam, Routineon 2022 Ova and parasites identified LM Nom (Unsp spec) Final report Invalid Interpretation Code [facility] Comment on above: Result Comment: Thes e results were obtained using wet preparation(s) and trichrome stained smear. This test does not include testing for Cryptosporidium parvum, Cyclospora, or Microsporidia. Performed at: [address] [id number] PhD Armin Zaldivar Performed By: #### 1 [id number], 42605429, 91383320, 56157873, 04173000, [id number] ####[address] [place] [address] Coding Summary.on 05-12-2022 Coding Summary. CD:[id number]:[id number] Gh0 bWw+PGhlYWQ+XB9ZTWStW89 ozUYguN3RR9dJIG8TIXBWFU PGRM2RAR2iuPG6HPqxO2Cgv iAv XhfzsBWmUL01HCx9SFE6tMj jMKipuC1jdTCvU6n5GuUrRO 12eQ57HKpwUVQeTrO2RtPlc jsgbWFy I3jtLzAawDKiJgv+PHRhYmx lIHdpZHRoPScxMDAlJyBzdH riVS7tFp7uQOYtKCEjgAuwc HNlOiBj e6deOKLyAZldJH1ikAwxM3K qoYA5AZLdf0z2Mz76wVT+PH WbXUJ6fHxyFYlsv676EaTgv 8blOCA3 gTYcJUsxXBH8T76jr7K2RSG qVDRcGZQ7fFZ1jX9fjDcvqm pgV8VftHJkWoV3WCY9sYRtz C7stMra rpwqtD0kHgu+Z11CCP3NJWF TMK4YToa9I0ZnWiuyzXO+PC 36QMAeWN61vRTubWMhj3hbg Wt2QpWi FIPlOIM8eFpvSGomv4VxHOK zT42dvSRft6V3SGSonHbfhF DqMaMfaPK6vN2gSDrlfgnkt 2hvdzsn Zxgip4nsfv16wA84C22hCVk zXELnJOQ1YYTzVADhbMembj 8gdA4iUu0+AItps9krn5wbl Hs0QuVq VNFoxqGmuYfzBYO7l2UwRo7 3T8GzdHvnc9KxYdi2vz71jD Qte7F3hOX0PVxkZQAbzF6wX WxlZnQ6 DBCgHcRjxM18vPMvSQjcIv5 noEzzbRbsUM5mFGIqptsgBA JdcE3rLTJpmFTmpTfcIH0rO TBpbjtm k678FkRqEIU2IRAusGUcJ7P qsC0nSpQuQVBsLCZbV3HffO SmVHdbQ602YOgkItS7IMRxc sNyD4Nr AZGbrRbpKlR4n2R1Dy5Eb5Z ynrmeEXG6QEhtPGAiUmX2Yk FbVjB2Y9RhBnt1QPMufHyjH K9mQ0Oi WKMeuufdrgdvqQE6QEDeKIF xiO87vRDpHEtwHt6aw4V2t6 70NUCtOYXkuG12Ny3amCsoS TBwdCBU vW3oiplks4ywknxzLxKqJVU bAHm8GWf2YRBucIrrUeMwYL M5TkC5AXB6sOWxlY1ovTlye coobY5r Oyc+D38zhF0dDER0CAU8tox oUDVouwPgXU97CP47A3VnHg wvdGFibGU+PGRpdiBzdHlsZ F4zRgOv r0qmd7NoZTpaH1GxDMZzLYn lOex9JQYdATC4lWT8zG5zIM ClSAbbf0W9xQY1P3YkxyQqz j8uj0zk CNRzHWcfO97oiHQux2T1JFD isRA3CVBdzLbeHpWkmQ08Kt c+GIRomVcjn8SjCzlsu6vgi 7ejpCg1 PbGoASXyxzWpvDktPCA3f8M fHu10C43iZEocUGSgMVUrNE MwFSCnlEdaoy5mtI8dWo1+P GNvbCB3 uOU1lV3zJWAxGsC7AGmaI36 8LaNchMXfHbmho1fft7nekD l1CiAtFFYxepVguUozCDF7v 4VaQp65 F12yVSbsJSVuSJLoXRFyAXD uuYmxwp5xoZ8oKc5+PC9jb2 wuoa09fZ40jYG+PUEhPSP6k WxlPSdw PJCcqH6uWHxxSoX6EGJxIqC dfJ59hOIrFIesCc3tlYhchM wtPM6qYUMkhqjke407SiSmv 2xkIDEw jALrFFkmIVS3F96by2Q9GAJ sJGOeXZG5sTQ5mL1jcRgpma ogbGVmdDsgdmVydGljYWwtY KtlF805 IHRvcDsnPlBhdGllbnQgTmF xWWg9R8KqYch0KGIhhYjfIF 7ohSMlZRsfYf9duQtrhVkvI Y6kVAAy cemaj836UmQzj0htVVOloOX nCVodFLL6Q48sh6Z3MQWwFO ZcMAA0eSA9cD0pjNusqudmr GVmdDsg meOsbWgcSMpnBNhdY770XYY iwHqzIqWispLuCOAilJQ2BL 04AL69xNTcc7Z2lED8O7PjB GRpbmct lgtjiAO4IDXbUDEsoR59Lg3 ehRihPb7pRXYbPNY6REYnlV YbO8QxnW4iWdQqEMDyBTUkJ 3RleHQt YAwlO874XDurMsM8ZPRaqhO bJ4EdAWQkjDimYsZ6a8N6Nj 9VX9C1SW65OK86sSIcf1Z6m RZ8U9Ng QLMimxvfdyzlwWG2BKBaBHA njF98Lc4suUziSs4hXBKsZA L8JOUuoJWdW7SgfP4cYvSmO DAwMDAw L4IhhPKiVFzfO675AKweOrP 9PJBzoeSdN4BjXPXqaAyaWi N1o2K7Ut8VTZp5EN00FS02q HJnj1Z6 mZY9T1SjRHLaprboejrlwQN 5GCIjAMKhfF31Md7ccEabGz 6iBDTlEYO0BSTxsLWeJ0Ijd C2nWgXm BYHyIMXdA4OijTSiIOttW06 9KLxxQgU8XIYztpJkF7TsLF ZppHzbUkZ2v9Q5Ed3WAEYsT W29OWE8 qQZ2EU54UI64B3BkPbdffYR ibGU+PHRhYmxlIHdpZHRoPS esUTDlEsHfrNphUJ2eXx1dW GVyLWNv hMhqmQCeVoYvj7saDIXbTZf rAD2ptTsnE3GjqQY7WEYho9 n2Th62K37iM5MovIH+PGNvb LC4hUI2 pE7dWkMlAwP8ILnjP477VwV kzYWdYovch9tdw3hixKg9Yb A0EUWnylNepHvkHJC7k8VpY o90D00z IHdpZHRoPSIxNSUiIHZhbGl aue7zhV1hGx6+GQZutLQ6iV E2lR2gOiQdLrD4SGsrB895P nRvcCIv Jeakz7ebn2quuIl5ZrJlVJD sisYjiMgkENO5z4AaSt81E5 ApeSufz5CcUty3ss65lURup 5L3yOW5 S6PfOGJuaojybUBzvSapJR1 yBXUdzsfkTQTtqY8dOLAqN8 i0LkQdVdY9IPriP9TjcaK4R DEwcHQg EUntRUK1E35ur9G8WXYpPZT rTFP8nUT7sW0xxOgtxeoqrT VmdDsgdmVydGljYWwtYWxpZ 246IHRv xKstYOUdqE3eIFBcnAGmtNq tPU3hDGNntrhuQgNPOK2NH3 fDCuieC4CXQS2vIAohjVP+P HRkIHN0 uBfpNZdfFKRvdB5qPEBdJ3c 5DrToGeK2NZkkH2IpZKLugu oaLe34xS1sEtUpPiH1TStqJ 2CodpK0 XWHwnLGcMYeiHCW5P19pf5S 0YHVuQAPuPPH9nLE6wZ6mmU lnbjogbGVmdDsgdmVydGljY WwtYWxp V244JUYqfCwwIjK5ErZmJcZ 2XZA3D2MsApk0FRVllMltCM 9esPPtZQrdNp2gwMzxyKqhJ X1kJYNh siibQGIpuV8xCHYcxUAdnKo oYJ0xMDFkappxl198HuRzUS U8XYPciPOsM7KqyK6bZhXiI DAwMDAw M4TdsUZwAJwaV252BKtyAkK 3OAFmzjNpM2BkWNUkuOzkQy A3t0Q7Pq88XvQVERFoagkfk GQ+PHRk INU3aOkyXHebEJYguQ7eNCC xG1z4TtHuRzD0VYnaK2AuOZ SliswzUd53dZ5eOgPiLsP7Z FoxR1Ub yzD7QGIbtYJhDEdiTCD5D20 zu0K3ZVZrZQLtVAC3aSQ6dD 1hbGlnbjogbGVmdDsgdmVyd GljYWwt LEbwT422JFYydEebBdMugVM sZTwvdGQ+LUZpQEU9tHeyLM zeHAVglP1rJQMbM7r1MyOeW xQ1UExw H0TrGRTqqkmeEo74kY6eYmA pJqK0VLvvX7DapvY1KEIozX CtFZsaHPK6N77xr4Q8XXIiB DAwMDA7 uAF7kL7riOsryzjjvGKbcMx hnpWydLoyXPqxOKefI207MZ ZuxNoeGibnTeRFph4kMV9mL jwvdGQ+ XI54he97L3BkJovzTyz6JGJ rMXS3jBY1wS5nFCJdHMfhv4 O5nPD3D8PfwxGndo8qa7jrB XBzZTog D57feKZfz8T8USIqpQL0YJH vsKatJwTxvL55Cyl+PGNvbG fls8CsJuygs7ckn7uakRr4Q jMwJSIg kkGwkLvjHLR6x6SfDc83A54 sIHdpZHRoPSIzMCUiIHZhbG vcwk5amB1aFb0+LEQyaOU4t MF3xB6j WnAwZfH9GUceF822DtZrcUV zSgxrc3bba2rynZh0SkVlAH SeuqWlrTfdEUS2w5AkJu11H 2NvbGdy x5PjJhm5zs51bBHoy9P4vNK 1P1ZvDIAzvtrfbUQlpCasEM 4nRBQgptedLMSppA1oRSPxE 1r6VqSp KuJ7TEcyO7CszyQ6VASwtST jQWBcyDZZbQ3peakmn2hubm xxPkKpKUUcBYd4VZe6XMUcm WduOiBs YIN5AfK2SYB2nJLgzN6qpCq atfhkwQ1hZrc+ISb4m5ebnX DzHM2ajQB7DK95SX29tGCvh 2V5fIP8 Z3WoHUXoeaillrrhaKI2NCW pSUNhmZ23Wh5nvWquYx8wNK TdAMR2QVFofJOkO7KhiR4rZ iAjMDAw NRTyY6WrkCWsSGoiG346HIe zSvO2HJHoqvGcT5QpKWJjbE buLtO7i4F5Lj9WLT89OX89M L44sMWt d9X9zOD1Q6KgXKLqtelyzph kiOU3RUGaGXUzvS31Cl0dqI tbJf9tNUFkBFN3XBVvnZZgA 5JgmW5u LjBqAYHzBQBxU6WfnPEwTRl dR881YXfkNuS7ZDPsyjVxU4 ObWUTxdBtbNgZ5l1U1Qx9YM s12HA90 HI67bIYbu9A0sSO4T1DdXBW jtowmejbsuIG1FJHxGZXcdE 72Np2kmSeyEf5sNZZdBSQ3U FRpbWVz Q1NevQ7xVwXpEKYrTZOlZ8J ipQCwEOfeP889QHsaUcJ3GD GxrlRxA6TtYZJyvUqxRvQ3y 3G5Cn1B QXoxyyy6J8YbSpmsnSQ+PC9 8ESZpNE27xXHhdWNqf5skpJ e6PsSoRDHlIDU7zDasFLwpj 3JkZXIt Y29s (more content not included)... Normal [facility] CDiff PCRon 05-08-2022 CDiff PCR Unable to perform te st due to consistency of stool. C. Difficile testing will only be performed on diarrheal (unformed) stool unless ileus due to C. difficile is expected. Reference: Clinical Practice Guidelines for Clostridium difficile Infection in Adults, Infection and Hospital Epidemiology July 2009, Vol 31, No 5. Normal [facility] Cdiff Specimen Acceptable Unacceptable Normal [facility] Comment on above: Performed By: #### 1 [id number], 52953374, 72117353, 86005399, 97773719, [id number] ####[facility] [address] [place] [address] Order Cancelled YES Normal [facility] Comment on above: Performed By: #### 1 [id number], 90838334, 91134193, 03785029, 96616720, [id number] ####[facility] [address] [place] [address] Enteric Panel by PCRon 05-08 C. coli+jejuni+upsalie nsis DNA ARCELIA+non-probe Ql (Stl) Not detected Normal [facility] Comment on above: Result Comment: Test ing was performed utilizing reverse foreman/pile driving and erection (RT), polymerase chain reaction (PCR), and array [...] nulcleic acid test. Performed By: #### 1 [id number], 18328800, 93093411, 46194629, 91297440, [id number] ####[facility] [address] [place] [address] E. coli stx1+stx2 genes ARCELIA+non-probe Ql (Stl) Negative Normal [facility] Comment on above: Performed By: #### 1 [id number], 39601010, 01451741, 23927273, 10898227, [id number] ####[facility] [address] [place] [address] Enteric Panel by PCR Negative Normal [facility] Enteric Panel Intrl QC Pass Normal [facility] Comment on above: Result Comment: Test ing was performed utilizing reverse foreman/pile driving and erection (RT), polymerase chain reaction (PCR), and array [...] 1 and 2. Performed By: #### 1 [id number], 42485648, 63806190, 04730777, 63786988, [id number] ####[facility] [address] [place] [id number] Norovirus genogroup I+II RNA ARCELIA+non-probe Ql (Stl) Not detected [facility] Comment on above: Performed By: #### 1 [id number], 39031916, 53072225, 36189358, 94861719, [id number] ####[facility] [address] [place] [address] Rotavirus A RNA ARCELIA+non-probe Ql (Stl) Not detected [facility] Comment on above: Performed By: #### 1 453520601, 17754389, 51024695, 48600567, 94921669, 3213765863 ####[facility] [address] [place] [address] S. enterica+bongori DNA ARCELIA+non-probe Ql (Stl) Not detected [facility] Comment on above: Result Comment: This test result should be correlated with clinical presentations and medical history by a healthcare provider to determine its clinical significance. Performed By: #### 1 [id number], 27241184, 35014611, 07961753, 50531241, 9382443131 ####[facility] [address] [place] [address] Shigella species+EIEC invasion plasmid antigen H ipaH gene ARCELIA+non-probe Ql (Stl) Not detected [facility] Comment on above: Performed By: #### 1 243233799, 87487805, 71167385, 22661332, 75133732, [id number] ####[facility] [address] [place] [address] V. cholerae+parahaemol yticus+vulnificus DNA ARCELIA+non-probe Ql (Stl) Not detected [facility] Comment on above: Performed By: #### 1 [id number], [id number], [id number], [id number] ####[address] [address] Y. enterocolitica DNA ARCELIA+non-probe Ql (Stl) Not detected Normal [facility] Comment on above: Performed By: #### 1 [id number], [id number], [id number] ####[facility] [address] [place] [address] Fecal WBC Lactoferrinon 04-17 Fecal WBC Lactoferrin Negative Normal Negative [facility] Comment on above: Result Comment: The semi-quantitative detection of elevated levels of fecal lactoferrin is a marker for fecal leukocytes and an indication of intestinal inflammation. Performed By: #### 1 [id number], [id number], [id number], [id number], [id number] ####[facility] [address] [place] [address] MICRO OTHER TESTSOrdered By: Cynthia Case on 05-08-2022 Fecal WBC Lactoferrin Negative (05/08/22 9:00 AM) Normal Negative [facility] Man Sero Coding Summary.on 05-07-2022 Coding Summary. [id number] Gh0 bWw+PGhlYWQ+VW9XCLGdW41 jcDOouV2OU1bFXQ3MCXEEYF JJHE4RMX5ogHT9YEljI8Aqq iAv ZuviqBBhNR79PGn9FYR0kJx bTXquoJ3ayQLeH8m9FdLeWF 88wL11VKskOUSiZeP9EjXyr jsgbWFy Z3tkDpBbjXTpOpy+PHRhYmx lIHdpZHRoPScxMDAlJyBzdH ttAE2fKq3oKPExJUAtkHaca HNlOiBj m5cxNNFbDWoxJO5dkIdzE4J mpKB3DWFdo7a7Og16cDH+PH TeMAE7lXufOAkkg019RpUmz 4mvIPI1 fSDhIGfvVGZ6C36zf6Y9AWZ nNVUkXSO5mXF3oC5odItjjt rgK3SugNBrJaH9ZZY2mLXpg J3uvJbk awbepG9iVtb+J31VHI9KXVA SKJ2CBbc5G9LmRjelsKZ+PC 33QVKnMY54xWOlgXVuz4sxz Ba2LxOc QKWcJDA4mIvaUCcvp3ZoJSX pC51ylCGij0Q3LAVkxWiwkQ IcQhGmsVN0lP1cMBczqjigc 2hvdzsn Cbcja1yzpk19uN85Z78oGMg xSVFfFIR4GGQcEICijSidlb 7mhQ9tLp6+ATaeh7mwn2bpe Tr9PmVx GEUdrbSdgKceXRM8a7YvEw2 1S7VomOnyb2ExHje4ky92lG Adc7M9kIQ5DEiwEJYodM7qW WxlZnQ6 MOTtMlSxmT06iWToLPkgGx6 ppTcodClkWY3sPIBgpjvjCQ JbhO6jXUNiwOAvoGgsVJ5pE TBpbjtm s634GqUeVTB3TZDjoJSwX4J veB7fKjPbTEOyCFAtP7LoaD HdYEucR906MHuiUiN2NKRwj gKfU5Au MOOlvXyhBqO5y1F9Vk6Cr7B igyrmHEZ3TJxlIBUcWrLpAd MdBdH5O2AaPbm2IEFoqRapJ Q8vL8Oh MYLwllmmjppucYG5FXFaFOX imG53vSQkGHqoIt7yk6T5s2 82NBKjLGMkaD82Gx2kaCuqK TBwdCBU vX8lkeggd9oksgyoEkCuEXO mNTl2BSz7PAYknFpiNzExNI K8HhP8CNY7mZRcfS4plQhjd ufmnL1z Oyc+E89qjS7fGRK5TKL6ndc yYQTbswOsSA09MA20G5AwVx wvdGFibGU+PGRpdiBzdHlsZ C3uLhCg g0jce1OmSJakP4UrMINlWBw qMmh6CXAeVQO7gIV0sZ9fTK FiJNhhg0L7nQV4C4YfgvUgb f6ib7sj PQMbSYbdA77bkOJmt5R3GDF ylVD3YUPojSzzFsBhxU79Wf c+XFDgkSkex8AuDkcvj1rzb 0jzuIr5 GnDuHKKvhsVlxHkjPEY5n5Y lKu71Q05pQXkuQFHfKTNhZR CcFALrsWtbrn8mpT6xYg4+P GNvbCB3 mHE5oS3jRHHdDyK1HFsnX54 1VqXkqRQsXqyir0iwk6oorI t1JfDtIFHqclKzhFixESY8n 1WqEy46 P95tPBgnKDAfHNKvJJIcDTK whMxhos2unD7fYp3+PC9jb2 nzgd80dT53xNK+LDGsDCE0k WxlPSdw WCCvuW8zWQltSsG1ORPfEzI gfO71aOJjVEgpJr3quVskvA brHA7yPPGbtuuwk977OaTjc 2xkIDEw eEXxMHohSPN2X56rj9V9BFA fSKYmGGO8lAS0dL2ehOwuva ogbGVmdDsgdmVydGljYWwtY XanJ667 IHRvcDsnPlBhdGllbnQgTmF cXAf2P5CePmd6TAFbxJifWN 0dwQAjBRiyHr3htYtarHftG O2vORRx fziat621NsYjv2gpRSNefRW pOLjvRTE4O27cy7C7DWJnEJ DvKYE0cGF7mG8aiGnjmqvjo GVmdDsg vmMdmXlgQVtyMDnfV596JQB uwKpgRvStuyJeXKNeaRB0VI 88YZ15nUNja9M2vFS9U3ElP GRpbmct qchyoXS7MTXdJARklA81Aa3 riUpsBb3mNFOoWGM8BTPucV BwN7CtbA8iRvVwRSUfRYPaX 3RleHQt OPjhU869QBqyLuH3MNFbatM pU7EiQVHkbHajWtN8y2L7Ok 4TV2U7MY42HS65cYDjq9I2x UC4T6Lo LIAusezrclsviEO0LUSzYRF omR80Ih1dbGblVu5zZWVyHF T4SYIyiAVcW4PhlS9lFfEaP DAwMDAw T2CqxGVzIRgiQ490WGzjWpY 2HZRfgjNlW5AcPQGkjPcdZb V7z8N4Ip3AEUh3CC35GP06q RBha5D3 uYR8L1MuQEQbfxpjfpqakUY 3JTJgKBTijI41Zu3njJlzQh 9tGFPdGTL0WGPrtCZqG9Ugn K1kHxZw WXDwJJUaH5CogSVoVDnfP99 7KSkbTqS5RWLsszRfF0KzDX BomPhcQaF0r8V0Uc4PZXZvE Z97ZHG8 kKV3YU20QC41O3FyRhbwnGW ibGU+PHRhYmxlIHdpZHRoPS zkXKWrQiUdcGgzWC3gXw9fF GVyLWNv qVagyQXfWgVwt6xtUZGnPGz fZM3ktKuwC2ApaXB8XZNjf6 n6Yw68F00nE6ZjeRT+PGNvb UA9qMK0 qR4yHdCrOlI4VNctP037QeC rbVDpHtlnd2eyr1qmxYj2Ju W6RNKbfwGzcSnaKJF4j9SkN w65C54k IHdpZHRoPSIxNSUiIHZhbGl hpd3jmT0lId2+EYMxsWX4lJ A2jZ5wYnSyOjC4CXrgC828Q nRvcCIv Nkqsd2ywj4ohhKk7RuCaUHG gseIwxYpmONI4i4XuTq76E6 OwhSmoc0TyEot3pb84uADjd 8J6rMM6 O3AjZUFebrkpsGPqsFokPS1 rNJEwdxnvPQZrmH6ySNBjR8 w5LeDkQcD4IBauE2JpgbZ2Z DEwcHQg EHvrRKX6R26nf8A6JFMhWXB mPFK8zCC4oA3tgYdctduivC VmdDsgdmVydGljYWwtYWxpZ 246IHRv hHnfEOAvxM8sQYYswGFhxOw dMS7qGVZpdjorIiFAQC7FR6 zIHuvnM4HBGS6rSRjcrIZ+P HRkIHN0 iGhuGXgvNJGawP0rTPVnO8b 7FmYgBaV2FGqrY7RtXYQujo crSm34cF7cKgFgHyO7LYmfY 5GmvaU5 ZYBkdDStHPigEQI2O48cw4S 9SIVsYXDeFMY6gZM2oO4gdY lnbjogbGVmdDsgdmVydGljY WwtYWxp H277JFAxpQdmCwF2VvAaYrH 7QEI9L8KsNqt9HVMjjGesHX 9zmZFsTOfmVz5ztToedNcfF O8oDNWr pxyeCDTvtE3tOINsvXQcgTz zCU9bSJKdkratv772QlGiUK I2DOBvhPReJ1LpbP7gDqMhO DAwMDAw O5ZfxMLzAGnuC905MRzbJqU 5BMUfpyTfT4AfSTNvkAibFa D4d1V3Pf28HbJGTVQtddbex GQ+PHRk DGT5rLykFVlkWPKmaY1kFVS gH9m3ZhWlZnK9KOolD7IdBJ LprxgeAs18uZ5rFnVqGxL0W DugD3Sg okO5ISJgwERoFVigXND8A68 rs7Z3JLSuILZkDPJ6sXV2eC 1hbGlnbjogbGVmdDsgdmVyd GljYWwt HQebE754EJOofLlpJfBkrDP sZTwvdGQ+KPZpTKH6aAliZU mrKRPzrZ9yMJEdH3e4BeGxX zW7JBor O1WbUVIdjvmcWc74zI9dZrG eGmL9VGjbV2VtayQ1RAWfxP LvEJqlSQY1T75mv3M4RDIdD DAwMDA7 qVA4fJ3eiNgeoevdfPLtvXh rgwWsjRfzEUfkBBpoO410JC LzfUdaGa69yOTnkPddqyM8A 3RkPjwv dHI+GI01ZUDhKY26eUGriFX nx7dpfOz8RtViAIDlJZH4iT axZFlch6NuBEXoU13mxXRwy 3O2GYOg nSpoqOYnXwLibDC8dN9nVQn ravfvg0bjtzlfAztyl5huju 92bE59W56yXHkuJMLwJYVnO CUiIHZh oBouoa8uvX0vLk5+PGNvbCB 9wZE2nU2wKqQoLaU9IBfgW9 06NkJweLBfPumaj2uvw3hdn Ti2ExBn WFUwcoOryFrjWJK4n4PlYc6 6B13wTJmtFKXaUNEwCGBeLS VwkBsxgy1fcW1vQc8+PC9jb 0ubxl91 qV67fAB+NRTcUHX8oTgwGJi mQSKmzT1qROniEyT4VWGeZb QeoS58dOGoSBzcWs0xcMahy LhaPA4f RAYrxpxwr645UyTdq4nxFUS asDCzNVnkZVA8W65pe4O1LB KaFQXxENO8mHJ6kK4ooMuls jogbGVm cRdcjiLzkYocILmbYLlnC22 2OICdnRcmQaLuzXGwR4otuv ZYRX0iZzyoiTB+MZDcZXM1g WxlPSdw ZIOscK4gIDDlY1u6LsShAnB 4GAaxV2BflgH0QOVbeTYsUE PnmEVHnB5ztqcyg7wwfphqI zAwMDAw GQy1DQy2PDFqtWggEwFlXSN 8AvB0QEC6zKPupB2rvFhium xvnV8jFbn+RklOOjwvdGQ+P HRkIHN0 lKgvYGurPCYzcU6hHCDgU0l 0ZuWvClJ1QJjsW2FouqJ8RD DupJXmXZXnyKIQpJ9dhqxnj 2xvcjog LjMeANTuNUe0OCo1AMSfsXh mYbQtGEW4VpN6DWO5xDRleX 3hsVhacbpwzE9tFbt+TVJOO jwvdGQ+ PUNmJTY7tZxcVHgaUCZigZ7 bZVUqA1z7TzKgJlA3VGdaZ7 PyjvH4SMJwnSAaHOYwaMZAh E3lsdik p1ygwmbwQyEqQUEhBRu0YFz 2WOZwyDdnMoOkLAW7WqV7TF M0oETuzK2efRddhagplM4oH yc+UGF5 RSP2YZ07UP84M0CsWxfjsVT ibGU+PHRhYmxlIHdpZHRoPS zvLPFnLgPikRcpHL8mAn6eJ GVyLWNv bGxh (more content not included)... Normal [facility] Consent for Procedure/Surger yon 05-06-2022 Consent for Procedure/Surgery [id number]#1.00C D:127 Normal [facility] Ambulatory Visit Summaryon 0 05-05-2022 Ambulatory Visit [...] Lab Collect, Change in bowel habits Normal [facility] Auto Diffon 05-05-2022 Basophils/100 WBC (Bld) 0.6 % Normal 0.0-2.0 [facility] Comment on above: Order Comment: Order Added by Discern Expert. Performed By: #### 1 [id number], 6948052, 8649665, 8624180 #### [facility] [address] [place] [address] Basophils/Leukocyte s Auto (Bld) [Pure # fraction] 0.0 E9/L Normal 0.0-0.2 [facility] Comment on above: Order Comment: Order Added by Discern Expert. Performed By: #### 1 [id number], 1782264, 6184650, 4050727 #### [facility] [address] [place] [address] Eosinophils/100 WBC (Bld) 1.6 % Normal 0.0-8.0 [facility] Comment on above: Order Comment: Order Added by Discern Expert. Performed By: #### 1 [id number], 6048904, 5478493, 0535384 #### [facility] [address] [place] [address] Eosinophils/Leukocy bev Auto (Bld) [Pure # fraction] 0.1 E9/L Normal 0.0-0.5 [facility] Comment on above: Order Comment: Order Added by Discern Expert. Performed By: #### 1 8388880, 5477788, 2363802, 0093973 #### [facility] [address] [place] [address] Lymphocytes/100 WBC (Bld) 15.4 % Normal 14.0-50.0 [facility] Comment on above: Order Comment: Order Added by Discern Expert. Performed By: #### 1 3505604, 7495251, 4985970, 5759342 #### [facility] [address] [place] [address] Lymphocytes/Leukocy bev Auto (Bld) [Pure # fraction] 1.3 E9/L Normal 1.0-4.0 [facility] Comment on above: Order Comment: Order Added by Discern Expert. Performed By: #### 1 9453455, 8540386, 2370308, 1809865 #### [facility] [address] [place] [address] Monocytes/100 WBC (Bld) 5.9 % Normal 4.0-14.0 [facility] Comment on above: Order Comment: Order Added by Discern Expert. Performed By: #### 1 4075152, 5937800, 5475218, 5988621 #### [facility] [address] [place] [address] Monocytes/Leukocyte s Auto (Bld) [Pure # fraction] 0.5 E9/L Normal 0.2-1.0 [facility] Comment on above: Order Comment: Order Added by Discern Expert. Performed By: #### 1 7550033, 4681788, 2975623, 1741717 #### [facility] [address] [place] [address] Neutrophils/100 WBC (Bld) 76.5 % High 36.0-75.0 [facility] Comment on above: Order Comment: Order Added by Discern Expert. Performed By: #### 1 9180760, 4356584, 6844671, 3269498 #### [facility] [address] [place] [address] Neutrophils/Leukocy bev Auto (Bld) [Pure # fraction] 6.4 E9/L Normal 2.0-7.5 [facility] Comment on above: Order Comment: Order Added by Discern Expert. Performed By: #### 1 9984385, 8849700, 9821264, 2989823 #### [facility] [address] [place] [address] CBC w/ Auto Diffon 3 Erythrocyte distribution width (RBC) [Ratio] 14.1 % Normal 10.9-14.2 [facility] Comment on above: Performed By: #### 1 4514721, 6572600, 2558104, 5900433 #### [facility] [address] [place] [address] Hematocrit (Bld) [Volume fraction] 38.1 % Normal 34.0-46.0 [facility] Comment on above: Performed By: #### 1 8436560, 6400271, 7688159, 9996509 #### [facility] [address] [place] [address] Hemoglobin (Bld) [Mass/Vol] 12.5 g/dL Normal 12.0-16.0 [facility] Comment on above: Performed By: #### 1 6516810, 8557139, 0295219, 4133594 #### [facility] [address] [place] [address] MCH (RBC) [Entitic mass] 28.6 pg Normal 27.0-34.0 [facility] Comment on above: Performed By: #### 1 4660269, 6799960, 2330266, 9072606 #### [facility] [address] [place] [address] MCHC (RBC) [Mass/Vol] 32.9 g/dL Normal 31.4-36.0 [facility] Comment on above: Performed By: #### 1 0455130, 3746962, 4148882, 0811155 #### [facility] [address] [place] [address] MCV (RBC) [Entitic vol] 87.1 fL Normal 80.0-100.0 [facility] Comment on above: Performed By: #### 1 1874639, 5854303, 3983034, 4659691 #### [facility] [address] [place] [address] Platelet mean volume (Bld) [Entitic vol] 11.0 fL High 6.4-10.8 [facility] Comment on above: Performed By: #### 1 9308434, 1788399, 4028592, 9194475 #### [facility] [address] [place] [address] Platelets (Bld) [#/Vol] 202.0 E9/L Normal 150.0-500.0 [facility] Comment on above: Performed By: #### 1 9664831, 8010052, 0032017, 3201821 #### [facility] [address] [place], [place] [address] RBC (Bld) [#/Vol] 4.4 E12/L Normal 4.3-5.9 [facility] Comment on above: Performed By: #### 1 7608411, 3899126, 9740272, 7644883 #### [facility] [address] [place] [address] WBC corrected for nucl RBC Auto (Bld) [#/Vol] 8.3 E9/L Normal 4.0-11.0 [facility] Comment on above: Performed By: #### 1 2623987, 6106269, 0289026, 9267483 #### [facility] [address] [place], [place] [address] CMPon 05-05-2022 Albumin [Mass/Vol] 3.6 g/dL Normal 3.3-5.0 [facility] Comment on above: Performed By: #### 1 7302723, 8769365, 1371820, 7758954 #### [facility] [address] [place], [place] [address] Albumin/Globulin (S) [Mass conc ratio] 1.0 Low 1.1-2.2 [facility] Comment on above: Performed By: #### 1 7272702, 2198731, 1952103, 2211371 #### [facility] [address] [place] [address] ALP [Catalytic activity/Vol] 93 Int._Unit/L Normal 21-98 [facility] Comment on above: Performed By: #### 1 6471429, 5160361, 0133240, 2936582 #### [facility] [address] [place] [address] ALT No additional P-5'-P [Catalytic activity/Vol] 27 Int._Unit/L Normal 6-46 [facility] Comment on above: Performed By: #### 1 4739897, 2014986, 1096199, 4422438 #### [facility] [address] [place] [address] Anion gap [Moles/Vol] 15 mmol/L Normal 6-16 [facility] Comment on above: Performed By: #### 1 4261891, 9537103, 3208172, 0261596 #### [facility] [address] [place] [address] AST [Catalytic activity/Vol] 29 Int._Unit/L Normal 5-43 [facility] Comment on above: Performed By: #### 1 5626107, 0559579, 8842841, 9996878 #### [facility] [address] [place] [address] Bilirubin [Mass/Vol] 0.8 mg/dL Normal 0.0-1.1 [facility] Comment on above: Performed By: #### 1 1884343, 0103075, 8303804, 8145358 #### [facility] [address] [place] [address] Calcium [Mass/Vol] 8.6 mg/dL Low 8.9-11.1 [facility] Comment on above: Performed By: #### 1 0890026, 2833149, 9027316, 4613445 #### [facility] [address] [place] [address] Chloride [Moles/Vol] 100 mmol/L Low 101-111 [facility] Comment on above: Performed By: #### 1 4812357, 8907437, 2038000, 1832355 #### [facility] [address] [place] [address] CO2 [Moles/Vol] 26 mmol/L Normal 21-31 [facility] Comment on above: Performed By: #### 1 0628396, 3611197, 3709986, 3628879 #### [facility] [address] [place] [address] Creatinine [Mass/Vol] 1.2 mg/dL Normal 0.5-1.3 [facility] Comment on above: Performed By: #### 1 5137895, 6311102, 4624416, 5462651 #### [facility] [address] [place] [address] Globulin (S) [Mass/Vol] 3.7 g/dL Normal 1.4-4.0 [facility] Comment on above: Performed By: #### 1 2159307, 7198876, 3359415, 0935293 #### [facility] [address] [place] [address] Glucose [Mass/Vol] 303 mg/dL High 55-199 [facility] Comment on above: Result Comment: If t his glucose result represents a fasting glucose, interpretation should refer to the following reference range: 55-99 mg/dL Performed By: #### 1 8258404, 8964370, 6169031, 1865367 #### [facility] [address] [place] [address] Potassium [Moles/Vol] 3.8 mmol/L Normal 3.5-5.3 [facility] Comment on above: Performed By: #### 1 6903234, 3610711, 5708783, 9573647 #### [facility] [address] [place] [address] Protein [Mass/Vol] 7.3 g/dL Normal 6.0-7.8 [facility] Comment on above: Performed By: #### 1 3826276, 1414462, 1793782, 8680971 #### [facility] [address] [place] [address] Sodium [Moles/Vol] 137 mmol/L Normal 135-145 [facility] Comment on above: Performed By: #### 1 4814224, 2102567, 8167200, 2272674 #### [facility] [address] [place] [address] Urea nitrogen [Mass/Vol] 28 mg/dL High 5-21 [facility] Comment on above: Performed By: #### 1 1528138, 8437194, 8949591, 4628545 #### [facility] [address] [place] [address] Urea nitrogen/Creatinine [Mass ratio] 23 No Units High 10-20 [facility] Comment on above: Performed By: #### 1 7322875, 6519895, 3196924, 3757801 #### [facility] [address] [place] [address] Consent for Treatmenton 04-17 Consent for Treatment [id number] D:127 Normal [facility] Gastroenterology Office/Clin ic Noteon 05-05-2022 Gastroenterology Office/Clinic Note Chief Complaint Colonoscopy HPI Staff Patient is a 71 year old femalewho presents today for a colonoscopy. 5 year recall due. Last colon 04/15/[address] Tapia. Personal hx of colon polyps. History of Present Illness Patient is a 71-year old female who presents for referral from his PCP?Dr. eWlls for colonoscopy. Patient had previous colonoscopy 03/2017 [...] left leg with Dr. Barney, [facility] at [facility] 04/07/22. During today's visit, patient reports over [...] Refill(s) 0, Prior to colonoscopy., [id number], 165, cm, 05/05/22 13:40:00 EST, Height/Length Dosing, 95.2, kg, 05/05/22 13:40:00 EST, Weight Dosing Follow-up With When Contact Information Linda Solorio CNP Within 1 to 2 weeks Additional Instructions: Following colonoscopy. Patient Education Colonoscopy, Adult Problem List/Past Medical History Ongoing Bile salt-induced diarrhea BRBPR (bright red blood per rectum) CAD in [place] artery Change in bowel habits Chronic renal [...] 3 chroni (more content not included)... Normal [facility] Comment on above: Result Comment: Elec tronically [...] including vitamins, herbs, eye drops, creams, and nofe-bna-qtskvyp medicines. ? Any problems you or family [...] air t (more content not included)... Normal [facility] eGFRon 05-05-2022 GFR/1.73 sq M.predicted among blacks MDRD (S/P/Bld) [Vol rate/Area] 54 mL/min/1.73 m2 Low >=59 [facility] Comment on above: Order Comment: Order added by Discern Expert. Result Comment: eGFR is race adjusted. AA=. Performed By: #### 1 [id number], 6462612, 3504432, 6478480 #### [facility] [address] [place] [address] GFR/1.73 sq M.predicted among non-blacks MDRD (S/P/Bld) [Vol rate/Area] 44 mL/min/1.73 m2 Low >=59 [facility] Comment on above: Order Comment: Order added by Discern Expert. Result Comment: Receiving Room Clerk jin kidney disease could be indicated at eGFR's of less than 60 mL/min/1.73m2. Kidney failure is indicated at less than 15 mL/min/1.73m2. Performed By: #### 1 7817536, 8917822, 8015076, 7638430 #### [facility] [address] [place] [address] PAD Rehabon 04-15-2022 PAD Rehab Please click on link to see report [id number] [id number] FgeVLLxEPBzJORbSYRAHo3D T6yzxieoYRCyXdGzFMKn BODoCXciprWge5XmlRA9RAn iHr3OlzGlhW2wLGxZB659sY UlgoAsN83ttW4yMULai77cX c3KtySz fTiekgNmjPQeVXN6GtKvAiP xMzExNDUyNDEtMDUnMDAnKQ o+DxlpctUeUjhBNBVeMY4hr wj2YHfl SOzzELAoJl8epIOod5BrhER 6y9LDT4IfimGBQP1eKN4Qis tazS1ESq8UvWIvoqIiVcexO g4ijNUN h2gnYh57NgCfLKQiLDFtOKC mXHXkLMJqMp6VoGBlzL9hK5 etvOzgDuf0Ht2UgSToZTS2P JvzN5Ez wYJaZxlFA7e4VHmyW3EnI5p jQJNIV4RfoZqkzPisnIK0ZE GLR1yXJYoynDCsPMB5Dl2Mr 2NlbnQg SIX3Vq4IKXKwUX91GZ8nYYK FU5qoIHWosbujMASkSv1WKH dYoDJ7lXMwGKSuEp3IohzOr LL1hBA4 SLETRw4YBK1dh5NzPyIeIHE sQrqTHZhYC1N5gYSlR1Zgol EAL8I0LfW0lYZyQ4UdqYDVs AUmHm3L MZAyCp1weBFeSVIfJJtDIEo rYiycb4JVlBNnRBXaDy1AFM I7Q5xkysOdExASK9BmF88gi N9xQP1B pG3BnyPzEP6zi2EwcvqEY7M iezXFUYWijzcifF3iUNMvVP AMQc7UlOF5oIQjSkHkLvjlX CAwIDAg MCAwIDAgMCAzMzMgMzMzIDA bRXOmWlhkYhDrPiK0BOUaTm dfSBQ1GQJ5MlA1XGBpWEH7O XK8EaN5 VBVjMOA9RTVfMFW6HZY3VoH yNzggMCAwIDAKMCAwIDAgNj C1ZRZ0VmA3ZsGtFvVcBAN2D gN6RJPg RXX1YyMeJby1FPJeJdB9JUJ 7YvG5TuDNLpOrPBb3RXF1Dd toVUL4XfNqLyA3VQLgXHE8W jIgMCA5 WSOyJIP3BgujHJLjLYIjIKj mRJLbELU6GHUvLVO2TZWjMD H9SLRkQOT5LRL4IEB6TMLwW LM8BCQc HrAzHzRhPGNxAEUmYnF8UvP BTIT2SZX4QoI5IRCrIVD2RO OkKzQ7XTWzRfk1IQM6HwK1L DAgNzIy TVZmLLE7CQUjHl6VXF2xc6Y fBfpoIRLeYeqQEHxKC9V1vF ByX7MqdxZMWLFyrbmzpU1pL b7Yh193 QzRpFKUdYQYqCNjyYz3nMDq 1EQktK85VCh9QcDIezpHqSk wpKf8mrSODz1taPd45ObBkC BB0OsDv VscxQTCqLNexEu3WvMEetK9 zS4aqtXcsIno3We1CvTYkNZ M4YXzoJ1ArdLNxYzkJW2b6U FzeL5Ck U4bbYP0iCftzJ6PbVJUuB2q 5LQndGtbbUPpyaBzedZD7HH sKI9PsJ2RsqCY6POEYD5Dtb 2NlbnQg LTIxMgovTGVhZGluZyAxNTA LV69ucWxiLDZaMKPjNaZID8 I6F6jfWOOvDOV1AJp+Pgplb mRvYmoK TSCxMD6yvll6VYkdQTjgONG rTo4qgQyfV4CwnKcxJBLlBE U4PRW3rDXDG9Pty5IUz344G B4Dfgpn jK1Bg7umBLOefZabIMQAZ2G dayX3Y2tqvjPsFpysBCKioA IoXEXaGYU0Ad0YuyYaMJxkF oNdJ8zz HW0fySWjF86nsY4fYb9Kl69 7WANvB2AnkXNvygV7FWNfDf apZ7wybAycABhbZfl2PXEbV CAwIDAg MCAwIDAgMCAwIDAgMCAwIDA KMCAwIDAgMCAwIDAgMCAwID AgMCAwIDAgMCAwIDAgMAowI DAgMCA3 MjIgMCAwIDcyMiAwIDAgMCA wIDAgMCAwIDAgMAowIDAgNj U5DQKjFXYmQYXsQJMzPBDfB CAwIDAg MCAwIDAKMCAwIDAgMCAwIDA zQHQ6UWJyCHJcCXZuDRBhTQ VpTQN1WFzTMbIuXVBpTAAnI DAgNTU2 IDMzM10+PgplbmRvYmoKOSA pKB9gmst7KPupZJobZGDfZg 7dmDEee2RjdPR8f5YYA9Mzn wPPAC1f OX5MbbeyuP3Xr9mzNSBIT3D cLTkqMDLzKy1Fg862ZfVrxU PuJTOsCPKoOjc8FSNwNJGsI QX4Pz9M B48et7QbyzoLaYB7gUSnFnt WM6T6CF8VXFt6Ts7NoQIbPv S9WGoyELSfkNoqIC1dlOTzG VnzP8Kr RRBvK2p7MXsaZyikPNtfzUt ifSE9FHpYQ6QcN0SslAS3IN XEF1Xye8HjomMwNSWqQqaaO GVhZGlu JuLrOZMCG24kgNjiOGDhQFJ jRUBMK7F8Q9xyQTRqPSH1LD o+PgplbmRvYmoKMTAgMCBvY moKPDwK J4K2vNMeP0RmiaQZV2M5OjW 3kGCoB9VnmROZuYEkGh0GQB SpEv0kkBKyXLYaDEwkMs6oL S0GEp9J iKSspIAmTTJsGmFNM9goy0J EkKInMPOvJGfdOD6xp8Kasg eoE0bufnQkp9dOglOsICjdF vxnNx2g sZXeu4FmwDE7i1UpNPBlJYS BW4reQPMazcWxTGQ9DGIsCX UsYQA6ZXRzBPXqEKXkYoHlS DMzMyAw ZZSvHzc9JBDKSbt2QWL5IVL vGBF8EuY6OTKcZMX2PYR6Tu E7ZDNbBVKyFQTaRLDbPoZeK CAwIDAK GOJ4EHIjLLR4DvSwXgSoCGj cFxI4WtXvWtG6RBXiIBT4Gz wgMhNgWGU3XJX7ZDJeSEL3T TEgODMz EpatQcZ9KnioZmP8HRl3MVL 4FkGlAoU2LYFpVXFmKWXdUY Y4ZSEfLKRkULXpUZKoRcSsE CAwIDU1 YnU2YWZeFPO3GERqVBV2QSK uEbYjRQOyVVX4MGNvTpq0UZ IiFAC1QSJ4HWW0DPvPIcMqA DYxMSA2 JZXeBOZvTJmyMQW1VXByOzD 4LBVvUJK2YDm9TEX2QKJeJQ U2XT4+VqRsDW4xxvswNKQbX K7sqml0 TXvwEGBmJ8GmGYI0CAB6Hc4 RSG5maRaiIhs6MfmrYwkncN VyIFsvRmxhdGVEZWNvZGVdC j4+CnN0 weHxiZf45xWFhLUN3NO/976 P+3iCsG65jDL0iiUI6JIPBf OPVDDsa6nGeZthceewaj0HU iQCUhDK tLKLa4UAZby2QtXLMWy+Jag IHNdReAd2gJN4q3DwM0ObLJ EKUKDPS3Xp647iLJkX/+hM7 Tv57e/e t94529fw85jKZAPML3KSDIw j2tY4ZrsOB1IsHGUbhPktKn vevDLDBLAVAchLHmhav/Q3v 1t2VHJx XrHP6TzZV911a1DtDH+J90x mBVI7yb1RDADzomj3gomtno etKggQh/gI4PjRaHSVhmRWZ Ihdg/ef SHMqbmg0F4B9miv542hVjj1 NwrEJ99p9T1EKaH7w98RhLi xNTI9qn5Fv+7lDzCl2KCA45 4U4+gnU 1opHvYnNE2XFUwDd+EAewsR ZYXml1ZVvwVM0upVIB08il9 WTXnJ1YOWV7pm6PbHygVW8I KDG1BOe Nf5ZueAmP0p6EM1PK8mUOQo Fdomd6Bne1qh2JmEZYEDb1D vA0AGaC4gne9DkKeuWt0X6L sh4wXNE XcSVul5OVR3bHGvyt+BD+Ct WGJAxAL3iMdzfkZJwJudFlz Zm72nrZN3eSYMdNVMvz7sOo USnYtSV kWiixTZ1LRTbKlHNcZprZIO NJQFqNKIpdLkqc7MuoktIFe 0WYePrXli5fQdblABbJ2I3B /pRrtBs ShS2egU6MXUm8HrXdiOPDu3 6n+3RVIytgAppoEMGTMGqfL hGNeZcDw/Gl8RrYZeSbkmk8 INO2A+H DEVt3Ss6HSmCL+AadicWhde VTwrJApQgyiqyiWzFfrTeJD xKD9QjaLD32fve53MoGpuQQ i+y3EKf psfp2/Qd+jG9SD+gC4ra5bA kDy87FdmfUHGjad0Hx+ROeb /8iouTFmXB5jG0ypiqh2ejo IWxA785 urwEOrjojDUzVD4TFOdTHKU v2tBeL8XPtP1sp9Myq1zE+u AzXgfKwGAlXAqJl/jJfJQgW UhCZAVZ TdYNV/TqqN7cCoayselAWqW nyR/FM4mmodjpYq3u4aX6nl hcuoAup0/Sp+dx3KL2uz74N H8OTjAk U6LmTZXLKF9zVsWmq+RHmSc tjgCHN2Ap3kV4EwrWnBjZ49 HW0clxkAq0YudujJf6wodVv qFMVaaj NCoPKZuUVmUvnuh+pV+Ntro KfuwqE0Mh8h16X/3Mkr9NLT EwsbHAISCdAMYpw09yl+xT7 awdoa4Q mDU2C71TFSuxugm9OUyrw2N 71BxII+nxYAqytjNSso51Gc 0jbDyjI8+OzSXjcad+D9ckG 2NWT7NA xKhkeHriie0EV9H6vTs1JFi nrwFcZ9iLLlYsXkcgCHavRN /f37DRlh3I8TuG7BCvr4CDE pJZSis5 SPpbH25REVCmeZZ6D6nxPqb IAPlzhzQ1qEUMvvYX5WA0fz hNIsUDmAggnAkTGxHg3zWM4 BW6dNOU lkqLZ0UluJpInRGQWXm0HHq 0sKKh18wceSMvpMbbJSTUNx 3d8BOkG5CuFCMvgG1P0nnbK 1QmaLag EkEeQcWCigQVClIFyYIkQcR zD/PHhWLC4zY+l4dC4CfsUz CHaH7BWzUrmDxAtBo1hP3YO sGLIR8f hYYlOIR3G4QZPj4HXzrfTVX 3KIaRgAR1z0CFCJaFVdqLKr 8H+UPE+4g+nJaVe0jinElQc xHdiJcQ oIpfXdGp0sitU30Ajmq7NsB OI17h23M7Dgi4P3ufpdadOA tS1t7A (more content not included)... Normal [facility] PAD Rehab Please click on link to see report [id number] FQHeKhz4QVFzSvUL1nknr6A YcrHSQkUQSnQSZyBSHYQl6T S5dtmtjwRGHsYxLmNUKy MYRtWBluwiZov9YpgQH3RRp oPc6EcbNpdU5iVIoZZ823kA ErtxGkU88lpW0yHBCcr01qK c6MjuBc nTldciFlbQExKNP1VmWnYjZ xMzExNDUxMzQtMDUnMDAnKQ o+JqsaiiEoGjmPVUZyIY0ht pt4RIao XGutARCiXc6okBShz2KgfQF 8x3YWH9ScbzUOYV7jPO3Zis hokF3Nt5mdHOVubQdfEGADN 0ZsYWdz ZTPkQh7Ar398ZaSnzIZxEPP 1MXAwXpj9USEsLVPhXQUaTM 4YI37gp0FyoxkKhSI0jOFrN xeME8G6 AW9AGFa7Ul4EpXZjEzH9PXn pXHYbbTdmKN4ltUOkYXYyXw 4YICIWNSlvbOShNhE2Fa4HN DFdK7r1 VDNgPZgjVEJnAX61BUcpCXq cQGQlY9JxrQCyAqCgBx7PLT VjlK0jOWH8WNlnCHD6B9sbn GggMTMz JxkvZZVcY8ndkDcgBZe8Yq0 +PpOgOR8tknv6TUAfl4RnGp q0Pa7ZtOVzCR1Vo115Yr2Dq HR9dVAf EN2KdhUpBAscWBpzJwOsQKC gnyEcK9BmqZNjIRAhpUEQiK EvpHCSCEnuDkqsv0LJfLZoE QKmZn4R HTI7O6syfrYcEzQIJ4ViC39 tzO9eQI6InJ1AmhDhDG3ab3 HtitvSP5OxddCQENNvfzlhs B1zMUFk QEHWMk8FhBJ5nOOuDdKaWpg gMCAwIDAgMCAwIDAgMCAwID AgMCAwIDAgMAowIDAgMCAwI DAgMCAw IDAgMCAwIDAgMCAwIDAgMCA wCjAgMCAwIDcyMiAwIDcyMi G5UxLwBIX2KJKvREL9SnIqY yk3OZFm UYJjGJtnAsn2QlXjApf4KOM 7TmHsKYdxWqC6MmnfFVFoYD AgMCAwIDAgMCAwIDAgMAowI DAgMCA1 YUYoArCaWJG2KiA9PBWgSMG 6GJEzKcV3MTCeXzVcEMI3BO QcTIV9FiVaUsjkLEr2IfSzB ST7WNOc PrQtXYBwBun6QWO0TbYrMcT gJhFkWND7VwYeOCGmWXV3VT 4+EqKhEX7vfya2ZDPcs3PaZ gh8Ux2F iLIaWW2Jl578VABsO3UaiAB yhfweUw0jlF1owPBmJ1ExkH OrJFPuiMEBQRmmTjleG8IgS lLQU6Py dlIGAs14ARhfGpG2QT5uTtG eSdScHMZfWPF2XZfoJYtpd9 oyH5azAHHjCTN1EGrzD5Syz UggNzgK K9G1UY1JAFj6Se7CySHgkBF MrkndQHDmUp9CPCZBNKdiwL SbBeE5Ck6XAYGjI1d6RRItU QovQXNj PN67HEneGRodRQAsK7TzaWO hUrXvQt7SCQMacQ3xYTV5HJ qvXJZ0G6ahqMuqTgHgHLudA ULvT9ov dNlzJVc6Qg8+WbOrBU9pyif 4CLWyf4XeLeu0Oa9MrJCqCN 2He479Lp5FfSN3bHKzWW9Xm nVlVHlw MAusRaByHPVwkjVfG3WvpXM qSLEjeTFDMKmjLnsyu1DYvR HqNFZqYj4WYBQ0H9ghpmNpU cZUP0Fg Q56jsV4vWC1NqY7NscPlQR7 ms7PmpvrCE8UuzpJKEDEoce jcfO6tMYpzCSRBQb2RvAH1c HMgWyAy AbgzOUDlFPK0IjPdGZi5WLA hHWTrAxYwZALmZrGwKSS7XU WtKhtfHiXaKbM3GAFdRjxvM CV6KGE4 DwY9BRPfTZZ5QNQ9DkM0HZD uKPA1GOPxAZYmGUPaHdSwGN XlATq0ZrQ1ZKX0XGQsTIJ6O jIgNzIy KIjrYoI2AzZqMtR1WDNuDZT 0XvqlMhDwZAL3RNX8MYZcMm IsVQMuJXL0OzJZHpUnPNi6L HP2Tiga DUX3MfXkOhT9KDSyNDB8YhW vLtP4YYt2WAVlKKF7NtGfEK WnVGIrAfMhDHIqIFS8FoN0V TEgNTU2 ZINjLSN5QLAqIbHeMDGvGAM 3XRGqKos6HJA0SEV0EYSwXv u8GGr2VIp5RXOiStLtNXWhM QE8JAQz Nff9ULU4JfRrLuIaOpXgAKC 2EyK3FpqlYOS2VWQ6BjP8QC FlZo2XOA4eq4GdAdeaXQInY moKPDwK V3S8gLQwK3XhqmECABBfhqt fqU1lZf7Do216JlYcFGWfYA XlEQaYXEwdEqpwQ4UcBfPVA 0ZvbnRC Ow50LFklLfB1FX4wNtNeNcL aYXXsRIGwJWayLQubd2eyF9 ooFZDtAKT8WPxdC0UrwIpjC ktOD9K1 XA0ECAa6Oi1XfVCzuMSYrun nFUTeYp5PAWNKOCpvmESxTt S5Jq8IXTUqD6l9QBDoMSaeD XNjZW50 UFdnULzjHIFeN4PvjDXfDsE uYn5SBGTzbE4oXQR4WKddQD E6I8nflCdkJoNlCRtdJZUjA 2lkdGgg NDQxCj4+TnOvNV6awydcTPB tFV7syfz5HFwuQOsuUZMuFb 3bcMpjE1ZtsMrxVZBrLHK2C CG9wNZX C8Rwv2NVn820GZ0EmrsneQ8 QUv5QoKCkgGKkARMcZjYSA3 ien8UGuHQtAAAvDPolCK8bi 2Rpbmcg U3tyhfFwd1uHcsZyGQmgKwk rXh4miNTex3MxuDP6i7NnXT MrRUCYY7rrYXHjeuEqOLL6D CAwIDAg MCAwIDAgMCAwIDMzMyAzMzM nIPO4TQArKZZfJlEzQps4MP H8YkE1OKSjFPK5XHZ5XmG7R TYgNTU2 NPO6GpZ5CHDcREZ0AOC5SjW sOQZhXXPwCbCdWBMwHJZ3Dg F4NzisKPO1SyDaAkV4SNPhO BE0Ioah MbOkSFC5FNWsWHHaYRP4ZOo vSwh6NcBxHvm1NBC1FwZzFB hnHnQ4OkoePbAiPAVuMDM1T DQgMCA2 NjcgMCAwIDAgMAowIDAgMCA 9HPZnMQF8CUSrPVJ8CLOzIQ T7LHH3LSG9INQlSUL0JVZqG iAwIDUw LDXdTwLdQAAnZzM4JtG5HTD cLLR7YHQxVbBeAIChFVQyVi nlQZE9UKIaJBK2TxHjFFOgV DUwMF0+ PgplbmRvYmoKMTEgMCBvYmo SIZfYI0sidcx5mOMkRUZmTu fpNVPuQ5ZvUCG0MjACR6Qtj HRlciBb Q1BbKCWnUPTeq0OeNUw+Pgp kmIKtQJ3VcStOML0eKFYHL/ e+j/l3y5FWa6lUcmxaWznSS AIkgRiW PFhMW16VT1AGCKclRRVhQxL QyoQCgpvQxhJstQIBRQGJvi SfTVEcIrBZvrY1hHZPAv0kI CxxximU ReqMo74MSnFlBl/oTO07+e3 v3nPOO/ecc+/qalTCZXb4eZ R63do1+ks5hw+q2lvQNo3m1 lWf8lpm vkVmUJSIUb3qMn/0N7/YuBg y8rgU6nBHGTF/ec+F6Tg/if tLk7XGrTW9DeSdUi0WTh0Aq 64nrSoI QCo817FrjEN9GY8ZPDSEEFR 0t37Uj67FwqwAvtW72YcmX0 7cl5luYlIELU/V0HzPW+OWY T6GWRGs 72k9nvs5jxgarNKFD9RIZOv Y1GYe88x6fGMJIO65B/hAHs UNCSC6jfTPZtda8AzzIC+98 XaiVI7f NEVQi/Tr3L9WQBk9UmDmmim gbRZ/P6Ez5N3iLo1DT0iGtS i9namDyx4ZT+a5rP7oTwfvw 9BnA+xC Wy+l22hd0H6zcmcoSYfr+YT 24aaMAj6+uteN1g3I78/gQ/ flVUBZZYtMbd794QzmZjTvF W1yGKsb NWunOv5sXMlTUfoRT8kOg8P IlMEF3gJuND5M3PXfV08J75 dSScKS6SDXDJF85ouvVz1fX y0FQhAy h3OXOZbGLxqCaYHcRBS9Kj3 ZzXoIm69wdsPFn+VLynLlAE qfOp/h0RWHrSJYkxXNUiiKb zb0HxRx GH3KacOKpPUCkE67ReyNLov PhyECJ+XjfP64EyjcAnBmIz DYuL4OrCNXIEumaipuvW647 lT2kPGx m5zA/O8b83Q3pFvWQ3Fkaur Br7oQ2em7FpqfdUf/o19IIN stUWFqbZy6OU0P4nQzlrnuM nm//JH8 kUIU0+iAuDza0nc5fcJmO9h CajHq8Y72va6ijZJnECxQSP tWdtHnINmiC8OlQDszLFbLS JuqM63H smXnEAvVdEt9mChTUQlMKsP KJM8JAFg6ZGgnCYPPdUd3XY 2x99jemU/Q53LckkpUan8l+ qroXLqA EmgT8fmvU/QEZXWi5MX7nD0 Kavitha/Eq1ttyLJpAGgiZG/kR5 gvHFZNTDxhQcl4eJ2kj36Ym u+Si+X5 8n1Y+5x3shxJm4CwkcPdRVQ nygUuWuqsyWIjR39dunEttr s4Zi9vjEWS8cl+pUr2MR4Ks fbeN4Ss fO8yg2aRP7lGpOhvP+2obZZ zrQ4VBWyZnSO06ygh3iY51C /Q+8WjHONm7MZ1OQScf00mO RrNmmzL oSfXqn2r73Mwos/XJBtUymd hgbQImpRaKYpdhkNktbyZvC w02s07TWyOHhytcH38pUCtF 0Q/6dPS EbaehdinmOkVaZfSyCaSWUo pQXBu8yS8dcWB38vGsW4YXx JdwNa3FXdOopQSy0iMjGYth kuxu5pl tDCH2tI3gzMtZ+6gU+mTtsF MDRJfRB9p8VahkFkILxP1/V ddhYwoSgE15ZQcVgcINivuO kU9KWmv gMZXLbS7gGO5vfWRBleHTen 2oBJBHkHFgooEFQpSBcmCJE HEcw/nO8hidY4pfuw1Y/Eq4 bWTr2wv cPWFLkSApD8GmLo6gDhSVnA dFdxV70ZKfjpEMQBXQzxk9X lBewV5 (more content not included)... [facility] Please click on link to see report pdfCD:[id number] IRQoGym0INAiKcKZ0ipar5I WfgYFFcKVPqIMYqXMOXTv4J F2pjjppyIJMbCmYyARKl FLKmQYbclzWgw4CbpZA6XRj qXg7PmuRmnP9mDNtZH269qY WvtpEdC41neY5fDJGrs99sM h5WdpBv iIjpakJzyXCqYRR9IpStUfA fGwNvMZF0GTIaFHZrMPXjPY o+PyopbqWzTmkOFWZwSV9ek ri3IZxc WRctNIUvAj0ugXMvf0MjyFK 6k7HZG9NnuxKJTK2lIW3Fbo xkmU1Jm2adLSHlyEfjYHDJM 0ZsYWdz VHRkNm4Ls556NyMsiTDuDIZ 8AMHyUmr0RDQdUFCbTDZmTE 3AU60zw0AnkbtHzQS8vQKeM vrXO1T8 AA0HEAo1Mv8ZcJHtUwA0ZDk rLYZpoLskKV8ujDRbDJAvOp 0MZDUOIDldtLBcOhH9Vq3JP KLwA1g8 KTJnEKlyWEBvCE98RWzqVSs tPNIcB1UoaNFmJoSeMs0TVG ByhF9eNVJ0WDoxUCJ4S4jup GggMTMz NcffYEMtN4ykaJwvBQo8Lm5 +YgVrXE8nbul6HHSvk0UjXa w9Hq4NcQWrXY6Sy412Xa0Gc BD6uBTs JY1ZmxWeDAzoXNvkJdWsZBV szeGaH6XatRTlJMSndDWNzA YwwRBYWCpqSpuop6VEfVKhN MAhRx5F TRX3S8kubkOiLqNRY8KdM73 liC7nNQ8QyG9SmbFfFC3xh7 IqedlSW1LlofFVKWXhqwnuh P7wQPBs JGDRXj7XkYA4wZKjDqMnJao gMCAwIDAgMCAwIDAgMCAwID AgMCAwIDAgMzMzCjAgMCAwI DAgMCAw IDAgMCAwIDAgMCAwIDAgMCA wIDAKMCAwIDAgMCAwIDAgMC AwIDAgMCAwIDAgMCAwIDYxM SAwCjcy PaMhTRG4LfO5TuomPEVcTGZ gMCAwIDAgMCAwIDAgMCAwID FHRSXlVGQzXRP6NJQgVKH1B DAgNTU2 IDMzMyAwIDYxMSAyNzggMCA mFOM9BUIoZuXwDGV6AVMpMB NrYLU0JHR0WMEtDaDdGWOcN SAwIDAg UQP0QYZlVz7SMG3dn4XxMuj wRXKjPxiFHTeWM2F2lQEqB9 OhsnTNOSHffrkshI2oRn5Zx 250TmFt RJJhBKEhMVdJSXkmDxagI5Y sZmMPZ8CwoqVZNs49DHiaFj N4FY6jHbUiZnWuSSExNHHgW QovTWlz l2saA2vxZNDjLTR5LQyzY1Y maKfuAzoPN2M5QI9MQSw4Hj 5OuNNwrRNGskllLXGxMx7CX XBIZWln fCZfJdW1Ag6WXFRxH7l7ZMH fPCbeGLEsLM69SGikSCrpHU NrX5DfmYBwYgIvSb0UKCUbs D3tPIN4 AIwbPFE2Y8bioHfpCjUeLJl yDDGsZ7kygBgbPVCqGg1+Cm NkGV4jtdp1PXWjg1JpYyr3A d2RbXRh UA2Vu376Kq5EoKK1kLBhVW5 UcnVlVHlwZQovQmFzZUZvbn GdF8FdmCMaKGAOI4GpyeA1G 2hhciAz MgovTGFzdENoYXIgMTIxCi9 HugByVBswXaOlE3zqAM1asA XpC66pqO6dFv2Us330AIXgK 3JpcHRv iaO3WYHbBbsuG1epkLldQNl lYoc0ALRhEKMhFKVjDSJmNK N5JCKpTFWoVZLmXBHdVfFoE vC0TVEb WpqlSIP1LOD2VtY1RFEjZMO 0URZ2KjJ1OQKsEXE8RNQ8Wl X3GUWsBUV1SVU5VIKtMQSoA AowIDAg FKQ9MghgYZL1FwBnGpHxAMX 8SnKwJJq5FEBnYCR5PWRkJR J8XmYuCYuyDoz2AeReBrc2G HV1VoVa OIvdVoZ6RtfjRsPyPWquZpA xPWs1VPViEDLdHKVzKHNoRL qzOMLfQZR1BJLzAPQ8PPSyF SN9KDKg FXA1UFZ6XAF6IELwRPT1DMN yMiAwIDUwMCAyMjIgODMzCj P1UrK1LZDfXEF0LLFcErCdV DUwMCAy CxzwPSS8OFQbDSJ7KyAbFFT wIDUwMF0+PgplbmRvYmoKOS GuIV8hrzw2YSarZStxNNOlX e9qvVLq m8YhaWQ0a9YPW5MchzVRQQ6 mZI0ZgwgrtS3Ea3gqAYYRF0 QmPXyeNPFdDr9Hq261JwZaz CBbLTYy FTDhFlq0WKUpRARcULC2Mi9 NS92uc3BgkttGlXP2eXCqUt yRE6W5KX7FCUk0Co3XeEEtS yX4EBbo SBYgoQasQX5vpVLgFMvtL6I tVMBnP4t8RQpgClszIDpycX pfyTQ7LSnUO6AuL7FxmPX3U ZEJI9Nf i2SkddIfHANbGbohAZVkEIf tYeZjVNGTI35xjNccWIZqNR NeAORKM9Q7B7rcIMYuNIT0B Qo+Pgpl bmRvYmoKMTAgMCBvYmoKPDw BG0D0yNFxD6NjfkTLL7Q1Sw G0xZNtB6LetHSFfFYuDf5HJ VBwOk9s yIQrVWYcHTuaWy2bUI5GXi0 AaLOrdNIvVWCtWaTBD5agu3 XEyWFaRIAxCBumBG4qh3Zxo wtwA2eq zmInx5uLgpZvWAadAphrFl2 dzXMsw0VneVS1p1KsQTAhPS LCU0zuHZLnukOcUPB6APDjA DAgNTU2 IDAgMCAwIDAgMzMzIDMzMyA iKOXpKNXpKzH4PKEeWNZxOS AwIDAgMCAwIDAgMCAwIDAgM zMzIDAg WINqAgAfDBYpABywEqP9DbW iLsFiMUtxUbHwBYWgIFQ3Kh kwXzEwLXU8QXRiYPUjFwQwA DgzMwo3 EtFbJvc1SZS4CkY8DzeuKsI dRNF9UxI9LJAfUtLaQWHkPQ V7TYUzGsO4MTOeFDLcFEMRT CAwIDAg EPB5JDOiCSI5ZNVnTUV3QBF nXpZkWDGhARV5CCNvPen4GQ VhETU5HQT4RIC2RFgCYgMqV DYxMSA2 ERKvRROuUTadWTK6MERjSkD 5IAFsMAT1ROk9TSF1ZANuYN U2XT4+PjJsXU3prboiCOYmB O5chlw0 PBilTOrjMWAbGu7uvUChg3L qaYB8d4XKT7DwyxYJVD9uTD 9BetwmnM8VmSCfmZFIUNykI vsaU0Gx VuJZF9OilsSTHw39NJlmFBA 0KM2iBtNnWAU8SOT2PAfuQg 0VjMFcpS3vC6hsoNtfTux9N w9HtKEh ZYW1CDdsZ4VljDVpRvfPH7r 3HLcuQ1ZrV6ewLX8kOfvbG0 UlYPJiY3i7ZOkkXgwxWWogm WdodCA1 TWqEM3ZkX1QwjFA8IWBGQ3H dg6PbnoGlPHSnCvnyNKBjKS upUhSwYJNVP76fwMfpNMEpA DEzMzMK K7M8A0xgIREcSPU0VUq+Pgp lbmRvYmoKMTIgMCBvYmoKPD lVU2N4zVPgS9GofjLJK3M2V iD2iUCp N9WlwOKJqDOjOj9EPCFeAs4 udCAvQXJpYWwtSXRhbGljTV WUI5WshlP4G5clpmBcYguiE GFzdENo WDBpMIR5Rn9EptZrRCmcYrE dU8tfEK8vwJZrU94iyR1nAw 6Mb480KMCuG1PsaGDdikQwD SAwIFIK O3djCYWsukCkCJF2UHDxQVD gMCAwIDAgMCAwIDAgMCAwID AgMCAzMzMKMCAwIDAgMCAwI DAgMCAw CYOdGZSxNNA9HjInJplsYDW wIDAKMCAwIDAgMCAwIDAgMC BjIAPvHLQ1WxAvXORoGJRtT CAwCjAg DJJ7YcptWpb5BKojSoW7Fpe nBTBzXDNbURQwAJQ2NwUgPD YfFHGfKoGmGJTvCXG9VbPdX DUwMCAw JZD1HzOrYWRxITQrWGDoPDC mMnCoJZkmZFG2MuKwQTZyGu BaDPMuLnq6JZI9Ii7+Pgplb mRvYmoK SKGmJWIdUpzLWXbOU5wwwnv 0wDBrDWTxEashPUWxQ4DgJJ A7FoMYN2AnqFMdvlMzL0UbM XRlRGVj r2TlZEt+LskwuKNiWP0YrSq VOU2gHFLZE/e+j/q7t9AIx6 wCecsjAdmEQAIkgRiWZHfJR 19WE2PC KJsvDBIkAlIQyoQCgpvQxhJ stQIBRQGJviWoCWUqRcFMtb S7yABLIg7iAZzfpcqKJuwUa 99NMkCn Tv/oTO07+w1x2aLWL/ecc+/ rbkHIMZv6rUZ56uo9+ks5hw +h4grTYm0v0kMf1argncYdR KFZGh0o Wr/0N7/GqVda2zhD5tOKZRI /ec+F6Tg/cneKs0BWjUL8Gd GnWo8DFn3Jh41tpDoCLFa13 9OrpIR8 LD9BQBCJRUN1z19Bk87Rgke EqwI61OqkW71pf0ctQcLTQA /V0HzPW+ZAJP4EZTYq54q7z qz1cubp iJJLY7PZTCxQ3ZHf70q6pYS QAR20W/eEGfHPAAU4ehVBCu fo0MyaQC+44NdvTU3sXTZPw /Za9D6D ILh2OfByoobbnJM/C5Gm3V8 hWi7NY3eFtTk0aooUyr9NV+ g8qK1xAhcpa5KwP+xCWy+c4 7yu4Q8g gmtkPEor+BP12cjREh5+xlm L2x4M12/gQ/grSSTFJExOok 115AqyIdIcOY3kJPxnQVduX v9bZGoZ GmvSP1wIp1PNcTRA7fNeNE3 L9YXlN60Y87qLHnPW3KNYJN C13gtuAe1hVw6PDaMfe1IVS ZlHGsmT qPQkZCP0Ge3BrYzJr55sriA So+VLynLlAEqfOp/q5EQPlI AXlbSQSnbInvm3SjQdCL8Zh qOWbEDZ xI45RylCVtgLobKAT+DnfE0 5SnxjAvRfEeKWtN9FuLMLDU kzfanktM105eN3hEBbc1yO/ S6q54R4 yGfIR6CcfkyCx3uT9oj4Gwi xvUg/f21RFJddENTmmKo9HU 2R3pXe (more content not included)... [facility] Please click on link to see report pdfCD:[id number] IBLyRpd0UBZyYmBH7bfea8G BiyENXjNNWyDWMiSBDYAh8O E1vadnytUQYsJbUlGAFg XRXqVOaogwKld1BvhUP2DZx vYq5AvbCvwK7iVHlPN148eF MttaOrE42nqW1aJONpf38gI t9XjfSt bWzsrmGhyOYyRBN0MwPmLuY uUwAuZJM6DuPhXLZrHJDhBD o+SlsemzWpUqeIZWNyHB6sj uk5VEff HLiiEETeIx0pqALnp8GsyIV 8i5KUH9HcflZYFZ3eLX5Jjk pbpJ0Bc0gdQFZlaYrjGOYFX 0ZsYWdz PSCtUr8Xr782XcFqqAYjECS 1DQPpBcx4TYEfUHJgHPMdSW 5IC30ec5WhmegXcHA2yAExI ogHX2Q7 SB4EKUc1Dl1QqWWlIyU5RTo iOGKpaNftUG0orEDxIKSeRz 8IGUGAMIoniEAtKzR6Ku4BO CIyB1m3 XMQdHNgvBBPmZV07IBiwHMk zDLSgS3NopKQaDdHuKk9DWI AliZ4pXXK7RPykHSF8U3abw GggMTMz OsjgUBXdH9xiqBuyLRy4De4 +DbWxGK0zmny6PBEns7CwSx y6Lh0CnTRyOV2Pv669Ua8Rm MQ2uQEj SB7QtaLcXArgDTozKiDiEDQ buhQmN8LnxNChWCWpgAWEeU EvxKUQTDooNbjdf8DCgPJmX BYuMq5Q SZN7P4sghdDlTHJHB0FnE49 neI3hLF6YjM5WfzViKL6yx0 GwhloLZ7KhxxYADQCuvwwod S9bPHXp GJFMNt0ZgAC1aDLsZlBkFpu gMCAwIDAgMCAwIDAgMCAwID AgMCAwIDAgMAowIDAgMCAwI DAgMCAw IDAgMCAwIDAgMCAwIDAgMCA wCjAgMCAwIDcyMiAwIDAgMC AwIDYxMSAwIDAgMCAwIDAgM CAwCjAg MCAwIDAgNzIyIDAgMCAwIDA gMCAwIDAgMCAwIDAgMAowID CjXNF7YZSqLEW5XKDaBOC8Q TYgMCAw NPZtLyf4VTGqDJY7FHTnUUh 4XcJsEPQ2JSEsDUQzSEJ3CO G1JSYvHbJeCC6+RpBpSD8xi jm1FJHr d9ItIva6Qe1HdYReSS8Wy23 6IKIwD0MbvHMobpvyTa6dwR 4kuHLqM1OdcDVdQJUOI4OqY WdzIDMy Jq5Qo747TmFfhVTgWNR3QED kJuH3OECgEKDqKCG5SD2BY7 3yh1OwecsJjGQ0iNFbKlqTT 5N7JP8N HBz9Wv5HdFUcZqE5LPbnRCQ ifUnoZU4abTMcAPzkC9MbLW XgS1t5NRyyYddoXZpdjUcsg IV7OBqX A8ZaY7DvjDD3WGZWD3Aod2Q lbnQgLTIxMgovTGVhZGluZy KhXAUVT93kwQyrIGPvNXKnM BFLW3S5 X4njDBWsEGW5XQl+PgplbmR eYupQUSKkHC2kmpk1OVppTR zvTXWzVa2abGebQ2HweWuwS SAvVHJ1 NDE7gXXPZ0Tuk9BNp769PM9 CkbkzlG8VNn5QlGOumTLcUS ApEkJEA5orr6ZHrVEgWNYjR BuzNU2f a4CnlqwrD0sdopEnz6mFtiZ wFXiyIusaRq7xlWSpy7ExcW L7m8XgCmJtDKCBK8ntAQRps yBbIDI3 AIQpRYTpNLPrETr3HAIgJAR gMCAwIDAgMCAyNzggMzMzCj E3ZIKyGgytKWZ7OKK6KfY9E TYgNTU2 EYE3YlM7CCMcRYE4MSJ6MeY 0APHyNAU1OQW1TKHsHYX3EM WaNxM3JGL2VRZkOCT8SykwJ rK4WOky HtV3PzTnLgZ7CJQmSHDyRCl fEqVmGIOpWtW4RJH5DeM3Vc JXApQkZAw9JJA5ImrsUeg9X DcyMiA2 VtljEhFyMPbaHlYoMId8XLE yHKD2PeFeVNJlRXYaYxHwLV MyGMW2FdS4DBZvFQHbYLZ4W tY4HNLu Nkq4NIJ0TiE1SMXaLdCgDWT nNACnERFdWmC6RzARFXP6PA Y2WoV0NOGjZIG3CZEiLcE1X DAgMjc4 WCX9NdK5XXCfCjDbTPQyMWP 7UDMmHm2SVW0rq6RvVcewCR NzCnyCJAvAO6J9pSMpY9Fnh nREZXNj axvcsF2dFo0Gp931DeSaDDI yHNNeEOtcKb5pKL5JJn5WfQ TwlqNlYlaaOd4exKILe8avX a91Rbwk VJA6XfKcCPNqSWJnJNUqFy3 IiYHkcV5nK4jctKpsKnz2Gv 7TsQZeMKS0GCzqZ3BxkSYuO huQY0i2 NHysW1AzK2zvTHOUP1NrrWr nfIssnFT4QFPOW7tEJYqgjL HkNKA0Mt7Bg8EdqsNqBNK5T y8PAZWe MO36KZ8dGMUSD9qaLIGpwjm sDUJsYj0QFWvGqBQ3pAZjTR BoSt6UhkkNoYI1rXE6GyvAI o0ESD1a e5DeBoQbYOHsa9JvFzw5Ta3 BfTTvFR2Nq335Ac3WdPE5oW FpTM3AxdEnIProKQviUtIrS UZvbnQg X0ZugJMzXLTteJXVICzcSca az9SWyVNtBIOhVg1IAYB6B5 qwoyEsQtUDW0VbC77zzI0fM G6XuF7R mxRuRY5lc9NojksIY4UumwE ESHGyilwkqA8gTGyiSBZGXr 1OnRT5sMNyXyTpZouxVRHoP PS2FnBr IDAgMCAwIDAgMCAwIDAgMCA zMzMKMCAwIDAgMCAwIDAgMC AwIDAgMCAwIDAgMzMzIDAgM CAwCjAg RKMlTBcvJxF1TaEqJbGcGHr lEqE2OyoyFtYwKMf8SSE2Fk HjOho8CQVxVVCzJObwQwm4R jIgNzc4 PNA5LiPpJTliHqJ6YofoBcL iZRjnUbIcCREiEPY4GnozGR QrCADdHFdvTAUzTHA0BWWbP jExIDU1 ZiR9KWEvWAC4ERCuIgPuMAE hFCEkUajnDKD0QUOsDuw6IL v9GJj1UZRaSnPtUJIaCJIqL QH8CYA6 LTPjKiIuEPSbMQQ6XHXfENV 5ZOD4Zn4+PgplbmRvYmoKMT XnRMJaYvlEPBzCB5wboat2a DEgNTAx LqsjQVQqM4EsSCY6YgEXI4V eaVPowiTrD7SaCVSvIZRai4 RlXQo+KdamhIBmCU7KaTpGF L7dKDZC P/e+j/d6f0BDz7yPzasvPac RSZIibPaJLVvVI61OZ3TRGE svDBIkAlIQyoQCgpvQxhJst QIBRQGJ pqHrXFCwExRRkfE1ePEGHi0 xLFucztcROebZl84GIpImRv /oTO07+u6m4lHUC/ecc+/bj wABADu0 fLU89nf8+ks5hw+c1vuVMj3 a5vNb1vkvxdBrAFXBSw1kOm /0N7/SqVvl5yaI0oGJSHL/e c+F6Tg/ wicUp7TTaPW8XwJhGz2ZRj8 Za19skUfZKRb828ExiLF2GU 1SOBATZXH5o49Sr21WtjvDm fW97Qbq F95dn7dzDvCQFF/V0HzPW+O UVY7HLXBo66a3kvm9pefxrH CTY8JXYClG6LYp37w0nQHOV R20W/[place] IhAQHSK9kiVFNukk7ThzYN+ 12DbhHG1bOYJEc/Eb3U8JAZ k3IrArpoyowRY/X2Jo0C5gF m4JK7rW jSv2epgGah5FX+f3xO7iVvg gp9BnA+xCWy+t72ni3G8dhi tkPEor+FZ24cxSHa5+xlmO3 h2Y78/g Q/ghYDJZDRdDzl008KbaYpI sQR9dMGefIZhwCl3lNVoOCs bCN7aDk2YOeDQZ2pEmML3G1 NOyC94D 48aIPzVS8EIAUWS24iiqTa8 lJp8PDvJop2VQFGhASqiZkB UhWMR6Xf0TuMaKa15cpcRAb +VLynLl AEqfOp/f0XYFeFFPscVBMwg Fjsx8XdIiQN4LdiSUaSYIbE 38HuyDTtgPhyECJ+UqlK90A xfgGnYn NoGNoG1LqMVDNOzftwtmiO1 92eN5iSWmo3dU/G4l58T1jI hBH4WdzyuJq3eZ5zp0Xpong Ug/o19I CHcoILUnjPs0BK7Q4fZubpu kTnm//XZ3rANC6+yKgWxk3f o2npZeF9iRglYn4K87rn7pn GBdWVhX PPwCcxVnBTyhQ8GoGLjjUBt XELalB49CdwXaYWqNsJk0jO rGQOcDWhFUNS6SXJk4QNeiE CLHsZb3 OZ3m23jdxB/U98VooyjXur2 h+ztmLRoLIgmT9udvP/RFPJ Aq6OJ8jX5APc/Vw8nvjDFwX UmjJZ/k N6enOIOCLNjuVok7sX6iv13 Llu+Si+X58n1Y+0o4gurDd0 IqkpKhTFWmozQqDymblFZlL 57ofqVf eig5Ur7gjCTT1zk+iRa9IG1 WhmfdG6ZqpX4cn9xIL2zPuN vsU+2xrHCgaX8XKFwMyMC53 phx6yK6 3W/Q+2YtGOMc7EM9RSSyd98 uCXaZgoyHsEqLrx7e91Huoe /XJBtUymdhgbQImpRaKYpdh kNktbyZ zTb63l66VFuOMvmobT21sGL oM0Q/6dPSEbaehdinmOkVaZ qFvKjRMIzxPZKg2vM3aiPJ2 6fIkB4K KhXskQt3QPjYkhTVe3fLyTN ogkiaq7xykIWK3cC1zoAmU+ 6gU+kIulTNMBIiVJ1w9Boig IgATzT4 /EbybLawScG97JRuVtxPStz eOlM6MRlwbABYIzS4xMS5dd BBTgsYGaw9eNZLLzOCxjtVK QpSBcmC JEHEcw/rC2hmmV7newq3F/E z3jWQj2jqpWJOBqCHfP9KqF q3uGmOKnDtFiqA07KAhbmFX UHPCzoo 7UdKwzE9Qa2ZrBdsZzHLaFT ICgKPB/lDxPuIPsRbiLOIM4 xGHMvA3ZgUNV9MPbFZQ+rLc hNtibb8 5d8l3sKE8lhg3c3qnVvbF8j go3h9HcuxcWfBh/gGnN4Z0z NsrDZG (more content not included)... [facility] Please click on link to see report pdfCD:[id number] YASrOwg5TWGlGhXV7armk4N WblNGJkHTGlSAGaEOJPQt2O G6btpxsqCWGbIlKdUWXy EOXgBRjtixAdh0TpzGT7ICa mFl3TqbEvxG0cTWiIP661fZ RxwkQhM14aiZ9gVXGyw91bK h0GbnGm fWipdpHhrIPkZCM3XtFgUuH bZnMlUKR0AtXrFQNbWXZwVG o+TkrcipSpZcdWDPIzRW4kk li9TOcr WPxvJZIkKi0fgEGmv9WjjLN 3o9IGK1KqsjIKAQ5sMK1Bis rvgB9Gi2acFBWryHrbFXMSO 0ZsYWdz CROcCe1Ea730ZkEmlPRuKXF 2CQQqRno5BNBpBICyMZEmYE 7MC00pf6DlmqfUsDT3vZPlH zwST9O8 BM5YVZx1Lx5GuVCoZwY8GOe wVTIhgYfxVB2eyAEqPSYjLn 6YDOROOEygxQKnDyA7Ye2IC ECvP6r8 DAMmHTfhKNUxOM81HDomUIy yEXKoN9JrfFJqFcHqDb5VNP MtqZ9zAEI4EEsxWUF5C8pfr GggMTMz VopgQJYfA6tlpEfcILb2Ah4 +YhOwBC4wxey6YATrs0CtNi u8Rl1RqAOwKK1Zt019Bz0Qx NH7mLEx SQ5NbdLiVBojWTizBoPoERI xsqNrW6YsgXPjEEBdgACPoD PvnTGDLHmiHqogq0PEtGDsC ANuJr3V XOG8U6amfaSeWjUEX1SnX12 cmI5lRH2MsV8NbpXuMC0vz4 GxmjtZY8EttuOTZSBbazfcl U8hBQXq QJKPKm1WoOV3iQAfPfSqMnz gMCAwIDAgMCAwIDAgMCAwID AgMCAwIDAgMzMzCjAgMCAwI DAgMCAw IDAgMCAwIDAgMCAwIDMzMyA wIDAgMAowIDAgMCAwIDAgMC N2DsVzFaY4APQoQHSrZEH7S CAwIDAg NPV2PyZXUNWvVVL8DuGuGMG gMCAwIDAgMCAwIDAgMCAwID CtASGoVkSpCNGkMHZ8SoLgY ZV5ChJ3 DHSqLYZ9VHLsVyW2DIKzCVB aIzqjCLNhAFQsORe2UtEzSZ B6SCUgItWpJEBbStg0WHG3I iAzMzMg MHQhVNBeIFF2HYK3Gk2+Pgp rklFbClpRMuEeUS7hsrh9TI ncYKmiOPLsZo5kuYYmk2Aab DH2g1WZ P3BargMJPL3gPR3QzzutpF6 Xb4voOUMPF7ZpQLzcMTLoOw 2Tc478VxUglBLnPGAuLHEkY tw6DZVo KMYkVZJ6Ec8DB04zu5Gvqzo FiYG6wVRbNwdEU0Q7JC2FGK p2Kp5CxWCuFmO9DQxiPRKat WbdRM8a nSSyUCieL0LtFEPtN6d2GEc wOlrwEPwmtNnqoYA9PYgOU7 CpV6NhnCI9WRFPL6Hli7Psz nQgLTIx PfjaGZVtEWbgQmHwWYYCK64 ncYdpMPYhRDUlRMHPR5M7G1 aqMIPySWV1ZPr+PgplbmRvY moKOCAw ZU5wfrb9PMgfOYanFVOxNp7 exOupD8CzrKpuXCWdGGU8VW F1cLTMF9Mwm3XBz360NT3Na yiogE6X z9kmYORDI1BytvW7O0xohkA zMgovTGFzdENoYXIgMTIxCi 2DszOiIUyuLgVnT5wyBP4tn KTqA16i rR3gKx0Yf039YGAjS4RmbJQ ozyS3DTEjMhnmE4aryFqiGG dlObq1PRCkNGS0ELJsUXJqG DAgMCAw IDAgMCAwIDAgMAoyNzggMjc 6IOQ5VxY5BSMeBOG5RVT1Gc E6FRHjTHG2ZYZ2RmO3UWPrO KW9KUX3 NiAzMzMgMCAwIDAKMCAwIDA zCwWbJPesLlO5KzGaLoTqLU L5WbI1GJBfGzy4FOxiXoGoE zggMCA3 SeVaSjCaWKhyAez0PyRjJaj 4MTV5YrNxFSgbTgQ2YigeHh LrHGtpJsDdSBl1WMVqRYWqD CAwIDAg PWvjHWMdDSB9VVSuSiIrOVZ 8StL9ORQhLWP7YWFqTaIvSO WhRZKoGzryZKI6QTOnEnl1K Ku3CMj8 LJAuUoKdHTOlDAT8CTMwErs 6MUL8NbNgXkLtXlExQJR8Tn M0CpxeGZU3UZK7Lx2+Pgplb mRvYmoK MIFiWO8zadw9OWrqEAgfBOG lHz3cdCTbx9KsdWA5q5EVF8 LbujEWDN1gAJ9XcdaeoN6PG w9WuZCr jzPuOjvqHc3fsEZLp9inUb0 2NjUgLTMyNSAyMDAwIDEwND GsWu4XoLCcpK4cS6xtdKdeG lr6Of4U ePOhXAB1SJswH6ImrPYqIqj CP8i1CPrrY5AiT3loCKMET8 GibJyebMenlKF1MLQOG9ySA WlnaHQg VLY3Tn6Nl4PxmrEhSOK5Ii8 VASNgAU42TA4qGLJBY6mtBC IpzxnoDEEcFy5MAExAhMN2w CAyMDAw Wi6OduzOeTH0fDV5OICNUe1 GTM0nd7AuHvSyCOKqg4BmYs v5Kr4NuKCyPN1Vd921Mv3Ep AU9kMQy PM1GbqWxAYpoSIhyReKfUNA txwPjY7ExwBXjICATX6Hqac L8I9kmomIcKsxxNUDodWBzP XIgMTIy Ld3LjlVjPFcyQkOlM3eeGT4 sxUXmA14gyZ4hQi7Zk375IB OcZ0OcdNEhlwB1CSNwTxgxA 2lkdGhz PZvdTnf6AHPdAWRuXLAzBOv 1XDEnKIBnIQPwQBZtOKQ7YX XeYdSAYdu4KRE5GSN4LEWxC WT4PZP5 UmN3SWVhDMY1UOZ7LzG5WQW aRSS8NLYmKEV9NOD4SWCaNZ WbCWhzYKMgACP9SxfsPvA8F DcyMiA3 EnJmTnV0LNMaSNXlTFRwIxp 5VNQlWDGsQSayUzs9QhZsMC F6BiosTVB9VbUbCgI6CKJkB VN4CiNh ITV1ISKoGUIfITXiDTEpZTN XNIRzTMNfAGY9VTE3QjK4JD PuQYR4OBA3MnAbJvpdJMN5Q RE0GpJj ZoIyNSE1ERFtUoAfZEpiYnq 1LVOsOYU4VAU5VvPeOIJjEh C6BBSaNxg1GWW4SmS5HSMaU zIyIDUw BMM3IXHzUKZyDS2+CmVuZG9 ssilhYRUtNB6dpgf7TXoiJH MuJ6XkCEA9TLDaUm3CQR9tn GggMjg0 MAovRmlsdGVyIFsvRmxhdGV EZWNvZGVdCj4+KqI9hbXhyK q41zGKzESI2LZ/092Y6YSo7 0nKWnjL GqUVHcUZOPNN0qXZMvlA8CK 2lGLhmVBcBMsYuWCZNNbFk5 PcZtsWGGED7BhQGopRZWnPq zFP7Z6L i/2Ec1FLChmAOjui/b33kgy hI9M/+bc4kHcd/j0050uabc h2yxjwrZFIb7eKNW41/Trtx zlOa3Z1 QiTlNTTfs+iRg7ZSJbnoBwW 1RF2kC57A/+NuopjLROxyY3 485mQ4O/LjS8a8dafTHu3Kk I3B3BF6 xSTV9vH9f2eXFOCjTx9zCi8 amVf26rrMpX/h/qKlhbd7H1 fKU+B/Cf5a8+d595SGxanhj Pma+ub5 e783OIsHY9gW/23X+W+1TIP UMj/mqBkw0UlzdrhQQQ7kEC VTO++yfSgHMDAqp0+lHsqmN ZY+hx7C PrP4xJ9wkq2XURwSrBlzK7J 5sNWCmRWjnbVZ/BDzdbaw4V 5+mp+6sREIr0i9dTA9PW2Pk /G20It0 zS8Ns9U7Q1dibD48E0KmeTB usMmQVvYJ6+MQ3ZWdyeMPPb 925Psr+pD+yhJZPguxk/CJ5 5utXOzV PkOnAhAnspJUTeuHuRJo4FI L9zwNJvSRL/MdvIMb/LQQEP BnCdrkvvt0YQkwfdJQcrxZv N+jhVi5 ls8dsQxXjtngNIhWm5RNmh7 gzMl3NM4lCE6OWKagPUZwBa guMBddvgM17zDemcjvtnTdl SONUmk6 xeYloHxoZXu66jFEAFz9YK7 0Sr2bYnqJxxoQI+zC0sg8bF 7SFXQnFmLWNZPNYksgAcgat vuiZO8y j1Dl0JdOiG6wo2dO+3wCqra eYtJrNF5oZ/Jj/G3+Dv+Y9/ LP+ArYBF7arGImjNGUOKcQn 1U7yWIf ZKiXW7sjRVzigA4Es0fa2PB bvO5kQBlDnqycSP/yinMqjU VgQrrjyAoqyq8z0UEcOEUv9 yKQY/Qy pIc+N+oMXA8DXsidTpoB3ZR EeZ8sMdtKsNLcQly1oq0WNv YrjAX2oGjeBkhR+3I1tilQA dKefn9M XyVfyJfwlfxx/gR/ir+AE9n FT/IP+ASS4Ay7DQPPEX2pTd MIw9KPZBGsZxSGQ9DP9dSmL ejDvkWL g6s81yXiklJ+XzmXO8YNnvi CCwLEUo7sDhrP2yI7Xghfsr evBqhg5je7xADScipD++Qu+ RS2dwEy JCsTIVOVacpCpUlZrxxWepV Y6BGMHjzOnytyKa2bL+nV65 6ji1H2G+k9d5m9cn1Uyntpa IWXZj57 GTjxexgvHPA6aqF7AHh4D7b iOKhCPEtLhGXUJNUIUcolOs rQikgMB2UK5sOCjYOcrRWQ+ oQDUqo8 2+1sy0Z1yHeAaahfdPDexHj yENocEpnWMrIo0VVwVGO6Xu ng24HwzWrWerGFkLxgNnx3r 5tTRQ32 H8wEa2DiLl8NODVV0mEigP6 9jW5eX39sBLtonWIIT27dZO C64HWMtiEi90LhjivZgiayt n4fQaM7 BoTKCs8p6wZVm3d4bX51vyn vH0uMcGjLf3zETm9V+TbNsW nUIjYXys8ZXox0G/hHjOO7F vM57DJr MuQa5POmAraNPCPsS/YBe4E 3PPbxWduTialzM7LRy6b30O sucWpf94W58uKl2NYRv167W dcmxSbJ Si8Epw5bR5I6fE6wSjMicFG 7WRfVuGVqQr7Cg5HDUT1jao Ij0TEz (more content not included)... [facility] Please click on link to see report pdfCD:[id number] DZWtSwr6FBSuAdRL1omyd4I JqrHCGgYOWaRUOxIROYBa9V N1exnneiQGKmIqNsMGQi ZQWiCPcpnmWsx3TxtUN2SJj pRm1UruObwY7nIViQK627sL XwguIsU34fgD5vXVUax93fS c8PrvPy xSekrtVbtZKfBQE2HyHhNkB xMzExNDIxNTItMDUnMDAnKQ o+AxfimaSpOyeSELCvCP7ik iv8ADfd SInjJTIgHm8fhKCeg7DdzKF 4v3AGP1WhieLJLX5mCJ4Rmu pwzT6Nj3mvOKVwvCuiSSIYR 0ZsYWdz MUJeXw3Et745OkYsbMCnAMI 6STCtOkd8LMRcLUXuHNVdDJ 6MN18xj3ZagwpHiOY0eJCuR ppNF5L4 LU7GTWy6Ie3TvKHsSlU4BZi eBFKnvHxuUE7iuOZqIHMhSj 0ZGYAYOTapbNWaXaK7Wp8FI RWnC0i0 RLVoDPaiENBkAC25JTnhLHy iCBUwZ6EmwOAtAkEfUg1GBE KvrR5kUPO2TPnnLDA6C3lqx GggMTMz BbvwPBEgQ0jxsWxhZLt2Gb4 +CyKvLB1adxz7TKEim1YqKz o8Tm0DnQJmZT8Xx187Pt8Zg AR3uMIw CJ7JlxDqNDixSPbfWnGyDNJ juvKyY5AgpZXaZMQnaTMAkS MivHQXUElgRrbjx6EHpAJxT PLePr7F WJN1Y9gyyxSfNpGHI7NlY77 cwW5kCG6SmV7BuiDjPJ8cq1 PeeopCF4DrpoEBEFEwfopwz X6zOBFv YMHAEa9TpXA2vVUnHvTbKsy gMCAwIDAgMCAwIDAgMCAwID AgMCAwIDAgMzMzCjAgMCAwI DAgMCAw IDAgMCAwIDAgMCAwIDAgMCA wIDAKMCAwIDAgMCAwIDAgNz ZwHDA3SdDoLNOoKRJjDjmhO CAwIDAg ODMzCjAgMCAwIDAgMCAwIDA gMCAwIDAgMCAwIDAgMCAwID LKOZPwAPYyXMZ4FSExDGX8X DYxMSA1 NTYgMzMzIDAgMCAyNzggMCA uUDN5JKH7JDsNHiXxDLVyZX RmDJMiIsn3ZQWcKbQfWUVgT CAwIDAg VMU3KN9+XhCzTH9vlmk4UVT sa6ZzEyr1Sc1OdXDlJM8Tm8 42WTJhE5FxhFCbjmmwUi7nk Z9vtBEa F5SvmPWbCXOdiLSUWXchQtx iD1UqRsCOG0EvddEUSm49CR ftKbD5CI4kPuRxMdRsAMEuH GV0MGav BRwno4pwH4jeBHHpNPD6OIh xN9MiqKzlHxkLS6Q9YG7DNQ q3Tm4HjFMykYCOdpjeOBQsI z7KIVDA CQzccPBsThN3Xy4YLJCfH5y 1BAQhOKzvZEWjLT84SYygEL aiUQKnS4SsqEReCkBtSq6TA FMwgR9y AQS0KRlbBAZ1K3apnJiqNtH wHIfuRTDeZ4kavQidMMf0If 4+WwUzMD6ojfn9VBEid6HgC gt2Qk0B pMGkSL1Ze604Vv3ViND7rIN xCW2WdpKzKYppZHvqTeDdPC WsepZoV4LgtFFbAGTwxXGRB AovRmly w0MBcPOfIROdZp1YYSM4U0a pglMzZeNAN5MuC33wyK5nHD 1DiB1GnmWpYO4dd5KtogeJS 0ZvbnRE XSVgrxdprB5jRYacZQSOAd2 IpNR3gCMvOwEaKqtzPBOkPA C0LeCaNITxBQVtNVGvDDUwA DAgMjc4 NWCpDpjfJlqcUlz1EXO9TkK 9KSKuIOO0JJF0PgS0WJXwFS G6VDUiCHV3TPS8UfA9YUGvX zMzIDAg EERsQwMuQEDlBNfnYzC7BfL kTfZpAGyfIbO3RejzLPH7Ka yuFlGzPYC9FDKuTHnvKvP2K TEgODMz WolmErU6QohgYaM7NXq9SMP 5NgVdVgH5LRNsYRY0NzEbBb H7IFl8IBRhVGBaMnChPHUmX CAwCjAg GWMzVJX4SdN4NLIvSJP7ENF wERX0PYDrExIxXCGkBLE0EH ZjPdn5RPQoUFN2CDX6ZCI9Q DkKNjEx QWSzKGX0TJMvGbTwYGN9NTU 7WVOiJbNfOAXwZFK9VITsEl d7JHI7AyT8GHJpBYLiOA6+C cMkFW5a khb8HDFvr0KkKcb7Qr9RiKA pPZ6Px097UQJgT9TxsNLlve wyRv2thM2hmLJvX2UqkUhsf mktSXRh jMclLv4QkTUhewMxAsoiJl6 fgHHVw5enPf60VdBhVDJ8Lh PpUnThMRCxPgFwYq3XaDQgy L9kM3ns bEizGmA3Ka3ZbNYjNPD6HCd sL2IlnPEmRSDPP3m0ZHwlO1 IkG0fyAF6lUUbwY3UlDOCcS 7p0CJZw RBwrTKehvDcenNR7SyQXA1U nM3FzyVN0VOTTG4Diz9Jkio ApLXV7KIjmPDPxONfsSfUjQ fVGB53w eIgzOXUxNZHmHdkEG7D2O8y pZHRoIDUyMQo+PgplbmRvYm aBVRMtSZBhOmtHILqBB8Z5t HBcY9Cy lcMAR2T5QpF0yCKeV9DqqNQ SsZNoUv2IUEVxGc5mjPUjK3 TwlUZakX0IzGYstPHLA3Zep jE3C7ac ciAzMgovTGFzdENoYXIgMTI gTf7HfgEsYRrqTeUlR1qpWA 8emEUtX07whJ7rBj1Ez018R QHbY3Ee kCGbcjG2TNRpYtalH5treYd hNKsuHdS8KEVsZYWxUYQzAJ AwIDAgMzAzIDMwMyAwIDAgM CAwCjAg Uqj5IIEoEBUbDXGdMWKjXRB gMCAwIDAgMCAwIDAgMAowID CsVKI0XtqrPSS2EaHmBmZ3R DAgNDU5 JWPtCAR2BzYnEmTbRHUbVRE 5GgKcHMI2QrB8FWI4GNRoCV F8XLKqCGNvCDL0GzA8AYmaY jQyIDAg MCAwIDAgMCAwIDAgMAowIDA lAVV8NGTmHJB1VPYqVgS2ZF IkEZm9CBOxQQL5JCCyAUU5D DIyOSAw NBTdFiW4FTz0BSd8CXPaMYN dYLKuFCAwGMA5TuSqYTdvAr R6PYFkLGA7PRHsSKK4UvHkM DQ3XT4+ IjPcWT1jpyvaWPStNP0copr 2NLtjDRvjPHWcIp4caTFgg7 RiaIQ2b9NNY9DgwrTMJP7dP P0ZMKcl VbAlJVZvnBVHiCBsgIXRV4M kCFxfRRGvHv6Ay567GlGalP MiXJI8JVSdTrI6YVAwIsGvT FFhSP8L Y68nq8OhjjjIcYE5sNZjQhQ YA5J0QL3WXZq7Wt2AaUXsWz C1QOunHMIbzLmdPQ7xvZYwY QBlAf8T MCXNPHtshGSlKaE0Mt5YBGF xV4r2FQY7TQlwYPUqAR49SM o0ZewiYEIaA5UsaFAvLiI1K z0EXLSh nD8cKUXiOWpeRLU4V4ixxXb gYVBaWXxyWHUrF7zwcBkyYS M3Cj4+CoIbGJ8uglrsGeFzY F2jkrd1 TOyyARykTQRqUr6czRvjX1G gnAegYQKfNZK1VSI8uNFOE4 Pww7VYu233SL7WZAqaHmOsE UJvbGRJ iZYidWTDH5OuayJ1G8dsirG zMgovTGFzdENoYXIgMTIxCi 6EjuLiZKfsMtJqQ5wgHQ8dm YZsQ92q oI8xAg0Xo223GHKtJ8OxpVV ohlGoLJLlHQPAC2xcFQSjud BbIDIyNiAwIDAgMCAwIDAgM CAwIDAg MCAwIDAgMCAwCjAgMCAwIDA gMCAwIDAgMCAwIDAgMCAwID P1EwGjTYLsFWtkVSZgIYY2O DYgMCAw LHWiZPJ0LNkyUHXfMYUlCBL jOGGuSTTeUQs1QQouUPZdHZ AwIDAgMCAwIDAgMCAwIDAgM CAwIDAg MCAwCjAgMCAwIDUyOCAwIDQ hEcV0JcvbDLauWXHfMLYnQF J0VlDiCVJyToP4BWZHAWE8M DUyNyAw SSMcWgRtBSR8ECKkADrqAHE 7YkalTEHbCBH1FS2+Pgplbm RvYmoKMTMgMCBvYmoKPDwKL 7D1sFYq X2VdawQZHOEtnxvxjW1oQs0 Ga605MrYjQSUcRZClLZtLCD rqStyaD5IbGfEHH0MvhkBTZ c68VVcd FlV5LS8fHoBgPuZzAPEfTPA oTVjdVEryc3ceO7fqIUEoUO Q3VHdaS4PkmGwiIywGM8V4F N2FHHv5 Jd1BtPVqtZGYypicJXTbCt9 TDEBQGMwbgPEeFzM3Cl8AUB NaQ1m3PKOpPIffMEXpXV26E DkwNQov FPTtA2YoiTIzTvOpVl5KXIO nuH7jCDQ1TWdnSWG3H7wudP rhJkNoLQtyVKBtD7liqEvnY DQxCj4+ AlHuUC1zzektCVByOT8pcgz 9VIdtPAdcXKNhCy6oeHkjK2 OunSxmOYDuSCQ3EFK9yMOEX 2Dww4NG r561DO3YhromiV0WFc1IqQG ztSQaMWWgHxWEY5jle0ZZsA BlOWEaZsaiNB1hi4GeudahQ 1dpbkFu e8uOzeNsDIdzXhiqRe6tpWK pg1BuuZB4p8QiFVFxVXGPKf 5PxON4gCRlLfHaRdcyALVvF DAgMCAw MKJdLMYlNHHrWEJ8ZYCdORN eHpIGDdc0SWE3SNN1ZLWkJS I4LRA5UvR4YQQeSCN5RVV1P sJ4RMWm IBF0OMGfZTKrWcznYRMeBMI YBIBwLFChJjB2FRG3MaM0Sy StQqUmYJX8WwJ9VCWmTRQ7E jIgMjc4 NPVsUQJeBEdlQsi7ClQsVPY 0HllhDFE3XiUhTuC8KUIhHR JqOPDnJURsIEN6WvLtSJYaB CAwCjAg WJKvROV8BiE6QVEeLVIxSQI 3ZjR8FRGfWdj9CNV1GlQ0WE YgLuKzYZRkQMElJHYxGtT7E zMKNTU2 OYU4WzQ0PEYmXDC3ZIEyDvT 1CZNzJpj0EWJ9YgN4ZVNnOu IyIDUw (more content not included)... [facility] Please click on link to see report pdfCD:[id number] CPQhQpp2EYFfAvJZ2ddbz6S WsyAVPzPTWzDXBuRNULMl7I O1gxgxppACRnTtMbFOIb YHPdOIpfdwRoa6KwmHN0JPr lDg9EkqMolW6yUZgMK588zT YivqKhZ39ltP5uTPJsq61hR l8PlzJq vNfwsrTvsZLtFWX1ImNlYrP xMzExNDIxMzktMDUnMDAnKQ o+KvrdeqWvDybPPPLsSD8hv ty4UWsy OJtnTEHvYl1ctBQsx1LmcYA 3v7FXY3WaxyARSM0jIG8Jro fpzA8Rk6grMZVztRpoXMTPO 0ZsYWdz FTVwMh6Ea420FtUcbXSeFHA 5LQSoRhe5NYGaKFAkSMGrCN 7YS56cl2NskzqVwPE3hLKkE cuHN7R3 AA2ZGNz8Kw9TlJDfLuR1LJp tZNLofXirNT3ieZByYTStVt 8OSEHMALyzwBEoHxE2Kb4BS SJdK7n7 WUIsYUhgCMFsSF83YShfNJv pAUNnX4OcuKFgDeHkTj6HAB VtvQ7hARS5CQqqMDP9K3afk GggMTMz ZpyiLMSdP3xicHhhLTf1Gl6 +ZvNhHX9sljp0EIBfd6IvHe k6Ci1KtZFdBY5Xx112Yw5Rd WT2rMYr QQ2NmzVmVQhaFChrOnRwYVC jmuPnU0AspSJeNVEnqCIAyQ GocMEKUKdsNfyuh1CMbHUkY PRuGh8O VLX5F6uggoJgYhAQC7MfM76 dfQ1aHN2FyB8FfjUvXN7jf7 MthvzXW7LblyYLQGUjycdsb V2aJDKm RPKPCc9AyLE0aVJiSzZhHnr gMCAwIDAgMCAwIDAgMCAwID AgMCAwIDAgMzMzCjAgMCAwI DAgMCAw IDAgMCAwIDAgMCAwIDAgMCA wIDAKMCAwIDAgMCAwIDcyMi AwIDAgNjExIDAgNzIyIDAgM CAwIDAg ABHiXwKcLZU9EfkmUBO2RdE iCVY5KIKhOXEoLHEsDALdER UkFFSlUHJLMIKpCATzVZL7F DYxMSA1 NIZcQsEzKLW4RaCgGIJtDQQ 2CVUwQtd5ZCOhWNDjBmlpBU r2DzBiBIY6XDTzLjNwHPCzU ti0FQW6 NiAzMzMgNjExIDAgMCAwIDU 1Nl0+PgplbmRvYmoKNyAwIG 0gnhh4OOknWNriTNGaTt5eb MCee2Hs uTT2r1ZJR4XpoaXMTE1qMP7 UxkxtlI7RVe2QzMQzmiTzEn veUn9kfRUAu7lfJs16YfVfQ TMyNSAy HVLqHZXlUSCjHr9JyKGmhU8 iH6qdtMkwEbn9Oc3IaMSpIP R7APepH6UhgCYuFgrKN6a4Y ZvcX8Iu U4mnVSPEV7FntHtmcXslxSW 7WZSQT5wGRItawWWpLPO9Tk 7Qo6DhdwNzIIQ5Zd8ZSSPeR G72CO8y HSLRG1hnRVFqvhitPJUgNo6 APIyIdXB7uJQfRDLoCn5Fup rHcLP9dBN0ARGXEg4HGF4tu 2JqCjgg STJlFcrPYXaGS4A8wZDzV9S yfvRFS3M5GmH4qYEsP2XyzF FKuPCaWp4HVUOdIx2kjIJlV XJpYWxN QCdkPowxk6FKtBIpULRpRu9 FVSH0M7gkjwXeZtOJB2JgM8 1laL7uML3TwN3UvlGjEA3hu 2RpbmcK T4CeixRYFNWukhrdcV8gPEv yHWGYJh3FxQX6eHOrBwDsOd ggMCAwIDAgMCAwIDAgMCAwI DAgMCAw WRU6LSNmByIXKhv4YLF5NFM 5ANFsPRC2CUZ4OdL1DWIqVJ J7HTQ2JiD4NFJtYCL6HFB1L jI7UHTh Pyi2ORSlUFWaPcRzLYHzQWG 6RcQ4DhihPmTdLJlfVwE4Xe elHxEiUCa2SBU2JvIjIya6S DAgNjY3 JBF6SjL9LiEERcLpXXv7HTD 9HkhqZHF4PuMdEiL5ZZYoFW B8LnOkUmG9UXc2NZYzUUMfW CAwIDAg LXciMBZoKBR0NVFkVQT1ZSF eRHT7PBLuYGU0IQR8JEJ9LH NhQOM3TIWfBvJzGNSxCCQsG jIgODMz QlX2DaL8MVXsJSY6NFWlAzQ eYKDlGHHyAsjdERG6VRRtEC Z6IyRfEYW0GJCmAv2EYO1fd 2JqCjkg CGNhXbmPGUjSB4Z9pEKmX2I rvbVAJEOpbfwvfM5mLz1Hc7 38WuZzQNLlIGXeFRmvUu2jX P9NPh1N oHErqkAaTtnyZx3dxNIFt1d bAu90VyblQYT1GzHlKNRrSI MbZUOuDz5LqOJkiW6cL2fvt GggMjc4 Bu8VpJTpQTE1ENztK0RexII xCaaWC7r5CGqvO6ZoW4rvPD CDU7ExsEctrAptsIY8UECZS 1hIZWln uTSwVBK5Dx3Vl7AhdzYnNJP 0Dv4SKJAzBU39QL9lPAIXS6 znPBHwhfysJHYkCl1JOIzUi UB7dJDj KOVbHh3RgnySwIB2vWF7Oak SJf1DOH6zv9IoSwHrOVIzk6 PcPrn7Ag6UyTPiQF5Wk628F h3MwDF7 mHHhQL7YlaWjLTcxBHwbOvO aCZDfheJoN8IqkXCuVYCbjU VNMFqcKbuvn8ZEsYIxLOEfO c2WEXK2 C6budeLpDqPDN2JdZ49czK2 eQA8EpY5IptDvNP6al6Wzpm mZN1HtyhMIQMGyrgoyuT2sU DkgMCBS Tp6PhMM6vOFtAgCpLducFZV cYNL3AaPzYNDpEBTrKCXfYa AzMzMgMCAwIDAgMAoyNzggM CAwIDAg MCAwIDAgMCAwIDAgMCAwIDM vJfSrVPCzVZfoVUXsKWD7Rj KxOmZsHVtjLvD9XxAuCpL5V DYxMSA3 WpoeHnXiOGP9SEBtAEHxVpT qDYewFmi6LiGeQjn8BRJ0Ok C6TmaxFzXnGUP2ShO5TUVpS CAwIDk0 NCAwIDAgNjExIDAgMCAwCjA kDRKiLFC6WxO4JICuRAH1DK ApHIW6UYDvUdLkUHHoBYH9R TEgMjc4 NDToSLZ1CMO0SBD3WAoZQmN hSRFyBYM9CQXpFLRiEQipZU P3WZZwNoS3JQXwTDE1YMDuR QW6UIU5 Nl0+PgplbmRvYmoKMTEgMCB mTkqLGRgZB6xauml8bZKkEC UtMJogMXIgQ9TcOLR3VONSH 0ZpbHRl erCjX0ObSUZpMUCfb2YmYCr +MagxcESwHM8WyRvdDB3hDO UVP/e+q82eGTHOowa66WaLV CGSgIQP y9YdN4WwU9SR8IDDlxuVceK gCEJpKFBwE+xSoh0/gKCigE JjAmIGeWyMSV8oVRf4q9NoY +PoWOKM ByQxW3T+8tzGZtnK8V/9o9O +k9/73XvOeeeec+95s45TZE LtVeBWxHHzDmL4zgSnJWWQp AGk3I9Y wuj7dgHWgFBMBKo5QGF5+uO wtotfrbkCuZT29FBQFg0klH h7v6ZQWG2PAXC5N3oQJvqq9 bBizbon LlYqFMeHZx8sR0pGAHVvppb PFN+G/yxUQqnopZlg1fQxZK +oogOgRjxBU7mwVq6FGgBem +5cily+ IBLm03/bceFfWiZCaliAb+a C1LyYcmN+DgkDwtZ8ptIlux /oFIAh0xC43B22dTkS98FPk Ivpr+wg /wgIcTUf0OchfSRnIQrOgJk z3aodrC+xmNu2Qn/kZ/gZyz yIncvTI6e4p8XYqDmbN24Ld 9hp+Gyg 1dFwaNbaDIvsWv01gO5ZoRC PWC+tnDkR7lJBfik3Bv3i9F i9F9lNQvmGnHYZNx9m3JXQ2 cvhf2ZT JzUO4yZIdHLzsO9LtM6t6Nh RrvYb6A5t3EjSeImpotjD2o SlEVEYceyCBFRoRvsuzcPI1 fTIcFRb gjN0t2MzJRO4mhIvt6IjQ1R FZ/HMhZVZccGKSam6vuVomy 8GYS4J1vlhMxla7zxTJJ4us SofxqhE kqD9FI8gpHgXArzpl4axtzR +OkRROkm/KMwih1WHxsI26b FmXVPYVLYQEoSsYpvYVsxHy 8Wbtl9R ZrjR6Pev+8LWIyS2UKP3Q5c t/Bl+jL/Lf80/4T38S/61QI OPIBrPQ4rWC5Yw7obsZgkZ8 2U61zio xxKTDGumEuVk+OQ4OiCxIEO pewQkn4WQIf6qYLKWTqeeBr kDkXc9TqlXQmvriAxVwwsyx 0PTl8Qj kIHBSkyZyopZCVsACbJFLMR MqXMm9QUCK8VO8JN3UZG5OH mQXWR/XC0tE8ndbnx4fNiA9 1fB5/GF fDl/ij/Nn+CeDVw82qF6N26 JNfbwPtQYIyQKKcJowSeUQO YEz6R2lfxlDnqqJYN0oA1k7 k5ffaqZ uBH8xzW8mT+wklwSpHRpsjQ E3jS0KP8SCwE26IZ0Su5zu5 8QfwkqX0d1t/vkTvkj+ZqSo qQqYyET cFdDADNDVwrvZzuRh7Eebsp WIW8Gixr1LWqABlsbuk6dl2 /QI4BwiRU1xR3vwXYGW2031 0hc1bgA obpE4DM5eJrI6di3DEYWTfc VT1XT5RlRHiBLHYsFJecf8Q lSKN1xG7M76SUTWdgAJ4Y0Z N2eT/6M wBwLo6AQi7YeOJF84QNGIIS wRqfZg1SazXoQ3ruwl79Rwr ru5IGTFptebP3u2KDnICI82 87yMaxF ma58XgHPZweYzlwm8Rt1iT4 0aCErfuuNRFy7lDUX1rHPAW nOL2mOghSgI2/naGkuaItF7 RhFb5i9 rAoDAq0o8jj41zpcj56jVaE tTEriCle6ZtJFPXFjwIoKNa c6TYCa6asie6MM8AnSf2J9k EIJ09Pp QAdwBDgIvAzsA/MKv1JZKTn ADin8Lb9zi+5o9dLSY1g5vK HEggdoI9HPn9d439B3qfObS Hk4SoV8 rn0MJdE7zYfOk2ZZ4T4lJRE WmPv6Tc0U6xH3gtiBuyAAhX gXW+st (more content not included)... Normal [facility] Blood Urea Nitrogenon 2022 Urea nitrogen [Mass/Vol] 30 mg/dL High 12-06 [facility] Comment on above: Performed By: #### C REMAY, BUN #### [facility] [address] [place] [address] [place] Creatinineon 04-07-2022 Creatinine [Mass/Vol] 1.21 mg/dL High 0.44-1.03 [facility] Comment on above: Performed By: #### C REAT, BUN #### [facility] [address] [place] [address] [place] Creatinine Clr Calc Pharmacy 46.76 [facility] Comment on above: Result Comment: PERF ORMED BY: [place] [address] PATHOLOGIST NUTRITION INTERN AIRAM ROMEO M.D. Performed By: #### C REAT, BUN #### [facility] [address] [place] [address] [place] Estimated GFR ( Laura 53 [facility] Comment on above: Result Comment: GFR estimated reference range: According to KDOQI guidelines, <60 ml/min/1.73m2 is sufficient to diagnose a patient with chronic kidney disease. Performed By: #### C REAT, BUN #### [facility] [address] [id number] [place] Estimated GFR (Non- Am 44 Normal [facility] Comment on above: Performed By: #### C REAT, BUN #### [facility] [address] [id number] [place] Creatinine and Glomerular fi ltration rate.predicted panel (S/P/Bld)Ordered By: Miguel Membreno on 04-07-2022 Creatinine [Mass/Vol] 1.21 mg/dL 0.44-1.03 [facility] Estimated glomerular filtrat ion rate (GFR) non- AmericanOrdered By: Miguel Membreno on 04-07-2022 GFR/1.73 sq M.predicted among non-blacks MDRD (S/P/Bld) [Vol rate/Area] 44 mL/Min [facility] No Panel InformationOrdered By: Miguel Membreno on 04-07-2022 Estimated GFR () 53 mL/Min [facility] Comment on above: GFR estimated refere nce range: According to KDOQI guidelines, <60 ml/min/1.73m2 is sufficient to diagnose a patient with chronic kidney disease. Pharmacy Creatinine Clearance (Chem 46.76 [facility] Serum or plasma urea nitroge n measurement (mass/volume)Ordered By: Miguel Membreno on 04-07-2022 Urea nitrogen [Mass/Vol] 30 mg/dL 12-06 [facility] CHEMISTRYOrdered By: Genaro Rivera on 03-31-2022 Albumin Elph (U) [Mass fraction] mg/dL Invalid Interpretation Code [facility] Remisol Creatinine (U) [Mass/Vol] 95.7 mg/dL Invalid Interpretation Code [facility] Remisol U Prot/Creat Ratio UT Invalid Interpretation Code 0.00 - 200.00 [facility] Remisol CHEMISTRYOrdered By: SYSTEM SYSTEM on 03-31-2022 Albumin [Mass/Vol] 3.7 g/dL Normal 3.3 - 5.0 gm/dL [facility] Remisol Anion gap [Moles/Vol] 16 mmol/L Normal 6 - 16 mEq/L [facility] Remisol Calcium [Mass/Vol] 8.8 mg/dL Low 8.9 - 11.1 mg/dL [facility] Remisol Chloride [Moles/Vol] 103 mmol/L Normal 101 - 111 mmol/L [facility] Remisol CO2 [Moles/Vol] 25 mmol/L Normal 21 - 31 mmol/L [facility] Remisol Creatinine [Mass/Vol] 1.4 mg/dL High 0.5 - 1.3 mg/dL [facility] Remisol GFR/1.73 sq M.predicted among blacks MDRD (S/P/Bld) [Vol rate/Area] 45 mL/min/1.73 m2 Low >=59mL/min/1.73 m2 [facility] Chem S GFR/1.73 sq M.predicted among non-blacks MDRD (S/P/Bld) [Vol rate/Area] 37 mL/min/1.73 m2 Low >=59mL/min/1.73 m2 [facility] Chem S Glucose [Mass/Vol] 203 mg/dL High 55 - 199 mg/dL [facility] Remisol Magnesium [Mass/Vol] 2.1 mg/dL Normal 1.3 - 2.4 mg/dL [facility] Remisol Phosphate [Mass/Vol] 4.7 mg/dL High 1.9 - 4.6 mg/dL [facility] Remisol Potassium [Moles/Vol] 3.8 mmol/L Normal 3.5 - 5.3 mmol/L [facility] Remisol Sodium [Moles/Vol] 140 mmol/L Normal 135 - 145 mmol/L [facility] Remisol Urea nitrogen [Mass/Vol] 29 mg/dL High 5 - 21 mg/dL [facility] Remisol Urea nitrogen/Creatinine [Mass ratio] 21 mg/mg High 10 - 20 [facility] Remisol HEMATOLOGYOrdered By: Chai Reid on 03-31-2022 Hematocrit (Bld) [Volume fraction] 39.5 % Normal 34.0 - 46.0 % [facility] HemeAutoSS Hemoglobin (Bld) [Mass/Vol] 12.6 g/dL Normal 12.0 - 16.0 gm/dL [facility] HemeAutoSS Reference Laboratory Testing Ordered By: Angelica Casas on 03-31-2022 Test Code 443066 Invalid Interpretation Code [facility] SendOutsSS Test Code 136705 Invalid Interpretation Code [facility] SendOutsSS Test Name MPO AB Invalid Interpretation Code [facility] SendOutsSS Test Name PR3 AB Invalid Interpretation Code [facility] URINALYSISOrdered By: Elizabeth Rosas on 03-31-2022 [...] AM) Normal Negative [facility] UA Auto SS Fellows.plasma/Lith ium.RBC (Bld) [Mass ratio] 0-3 /HPF Normal [...] [facility] UA Auto SS Urobilinogen Qn (U) 0.2270334 {Donell'U}/dL Normal 0.0 - 1.0 EU/dL [facility] UA Auto SS WBC Auto Ql (U) Negative (03/31/22 7:43 AM) Normal Negative [facility] UA Auto SS WBC LM.HPF (Urine sed) [#/Area] 0-5 /HPF Normal 0-5/HPF [facility] UA Auto SS US ankle/arm indiceson 03-31 US ankle/arm indices [facility] [address] [address] Ultrasound Report Signed Patient: Evon Corcoran MR#: [id number] : 1950 Acct:[id number] Age/Sex: 71 / F ADM Date: 03/31/22 Loc: [facility] Room: Type: [facility] Attending Dr: Miguel Membreno MD Ordering [...] Miguel Membreno M.D.03/31/2022 3:38 PM Dictation Location: [place] [address] Tech: Christy Florian Transcribed By: PWS 03/31/22 153 Dictated By: Miguel Membreno MD 03/31/22 1537 Signed By: 03/31/22 1538 Normal [facility] CHEMISTRYOrdered By: Jenni Lazaro on 02-12-2022 HbA1c (Bld) [Mass fraction] 9.3 % High <=5.9% [facility] ChemAutoSS Office Visit (Cardiology)on 01-15-2022 Follow-up visit Diagnoses/Problems Assessed 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 (414.01) (I25.10) Status [...] vein thrombosis (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 5. Diabetes, managed by endocrinology in [place]. A1c remains above target 6. Hypertension completely under control. 7. High-risk medication with Xarelto, so far well-tolerated. Takes baby aspirin twice weekly 8. Stage III chronic kidney disease to be monitored closely 9. Recent diagnosis of intermittent claudications and PAD followed by vascular surgery Dr. Daniel in [place], she is currently going through walking exercise program Fariha Guidry MD, [facility] Current Meds Medication NameInstruction amLODIPine Besylate [...] and no (more content not included)... Normal [facility] Tobacco Screening.on 022 Fall risk assessment a) No falls within the last year [facility] [employer] 600 DO Work Phone: Tobacco use status [facility] b) No [facility] [employer] 600 DO Work Phone: CHEMISTRYOrdered By: Lab ROP User on 01-06-2022 Glucose [Mass/Vol] 166 mg/dL High 55 - 99 mg/dL [facility] C POC Subsection POC Device SN Invalid Interpretation Code [facility] POC Subsection POC User ID [id number] Invalid Interpretation Code [facility] POC Subsection POC Username ROSSY ZEPEDA Invalid Interpretation Code [facility] POC Subsection Glucose [Mass/Vol] 166 mg/dL High 55 - 99 mg/dL [facility] C POC Subsection Comment on above: Result Comment: Rain evert Meter POC Device SN [id number] Invalid Interpretation Code [facility] POC Subsection POC User ID [id number] Invalid Interpretation Code [facility] POC Subsection POC Username ROXANA MILES Invalid Interpretation Code [facility] POC Subsection CHEMISTRYOrdered By: Lab ROP User on 01-01-2022 Glucose [Mass/Vol] 185 mg/dL High 55 - 99 mg/dL [facility] C POC Subsection Comment on above: Result Comment: Rain evert Meter POC Device SN [id number] Invalid Interpretation Code [facility] POC Subsection POC User ID [id number] Invalid Interpretation Code [facility] POC Subsection POC [...] g/dL Normal 6.0 - 7.8 gm/dL [facility] Remisol Sodium [Moles/Vol] 138 mmol/L Normal 135 [...] a) No falls within the last year -[facility] 600 DO Work Phone: Heart Rate Regular [facility] 600 DO Work Phone: Office Visit (Cardiology)on [...] Vital Signs Recorded: 28May2021 12:25PMRecorded: 28May2021 12:21PM Hboajkib360, LUE, Bxfmxaq421, RUE, Sitting Vvufepvae25, LUE, Nhpyfqr70, RUE, Sitting Heart Rate68, R Radial Pulse QualityRegular, R Radial Height5 ft 5 in Cvvxmf529 lb 3.2 oz BMI Tqdkengvtl95.98 kg/m2 BSA Calculated2 Fall Screeninga) No falls within the last year Signatures Electronically signed by : Fariha Guidry MD; May 28 2021 3:34PM EST (Author) Normal [facility] - Chemistry and C hemistry - challengeon 05-11-2021 Cholesterol [Mass/Vol] 96 mg/dL Normal <=129 [facility] [employer] DO Work Phone: Cholesterol in LDL [Mass/Vol] 39 mg/dL Normal 7-40 [facility] [employer] DO Work Phone: CO2 [Moles/Vol] 24 mmol/L Normal 21-31 [facility] fel[facility] DO Work Phone: Glucose [Mass/Vol] 217 mg/dL above high threshold 55-199 [facility] feliz [facility] DO Work Phone: Comment on above: If this glucose resu lt represents a fasting glucose, interpretation should refer to the following reference range: 55-99 mg/dL Laboratory - Hematology and Cell countson 05-11-2021 Erythrocyte distribution width (RBC) [Ratio] 13.2 % Normal 10.9-14.2 [facility] [employer] DO Work Phone: Hematocrit (Bld) [Volume fraction] 39.5 % Normal 34.0-46.0 [facility] [employer] DO Work Phone: Platelet mean volume (Bld) [Entitic vol] 11.0 fL above high threshold 6.4-10.8 [facility] [employer] fel[employer] 250 DO Work Phone: No Panel Informationon 05-11 14 {mEq/L} Normal 6-16 [facility] [employer] feliz 250 DO Work Phone: 102 mmol/L Normal 101-111 [facility] feliz 250 DO Work Phone: [phone] 4.2 mmol/L Normal 3.5-5.3 [facility] [employer] feliz 250 DO Work Phone: 136 mmol/L Normal 135-145 [facility] [employer] feliz 250 DO Work Phone: 8.9 mg/dL Normal 8.9-11.1 [facility] [employer] feliz 250 DO Work Phone: 25 {No_Units} above high threshold 10-20 [facility] [employer] feliz 250 DO Work Phone: 1.0 mg/dL Normal 0.5-1.3 [facility] feliz 250 DO Work Phone: 25 mg/dL above high threshold 5-21 [facility] [employer] feliz 250 DO Work Phone: >60 Normal >=59 [facility] [employer] 250 DO Work Phone: Comment on above: eGFR is race adjuste d. AA=. 55 {mL/min/1.73_m2} below low threshold >=59 [facility] [employer] fel[employer] 250 DO Work Phone: Comment on above: Chronic kidney disea se could be indicated at eGFR's of less than 60 mL/min/1.73m2. Kidney failure is indicated at less than 15 mL/min/1.73m2. 54 {Int._Unit/L} above high threshold 6-46 [facility] [employer] feliz 250 DO Work Phone: 67 {Int._Unit/L} above high threshold 5-43 [facility] F2GTorie feliz 250 DO Work Phone: 197 mg/dL above high threshold <=149 [facility] [employer]GLexi feliz 250 DO Work Phone: 49 mg/dL [facility] DO Work Phone: Comment on above: HDL > or equal to 60 mg/dL: Low cardiovascular riskHDL < 40 mg/dL : High cardiovascular risk 193 mg/dL Normal 120-200 [facility] [employer] 250 DO Work Phone: 229.0 {E9/L} Normal 150.0-500.0 [facility] [employer] fel[employer] 250 DO Work Phone: Comment on above: Slide reviewed by BR Platelet count verified using smear estimate. 85.4 fL Normal 80.0-100.0 [facility] feliz 250 DO Work Phone: 33.5 {gm/dL} Normal 31.4-36.0 [facility] [employer] fel[employer] 250 DO Work Phone: 28.7 pg Normal 27.0-34.0 [facility] fel[facility] 250 DO Work Phone: 13.2 {gm/dL} Normal 12.0-16.0 [facility] 250 DO Work Phone: 4.6 {E12/L} Normal 4.3-5.9 [facility] 250 DO Work Phone: 6.7 {E9/L} Normal 4.0-11.0 [facility] 250 DO Work Phone: Office Visit (Cardiology)on 05-08-2021 Follow-up visit Diagnoses/Problems Assessed 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 (414.01) (I25.10) Chronic kidney disease, stage 3 (585.3) (N18.30) Deep vein thrombosis (453.40) (I82.409) Essential hypertension (401.9) (I10) High risk medication use (V58.69) (Z79.899) Hyperlipidemia (272.4) (E78.5) Status post coronary angioplasty (V45.82) (Z98.61) Never a smoker Class 1 obesity with body mass index (BMI) of 34.0 to 34.9 in adult (278.00,V85.34) (E66.9,Z68.34) Orders 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 Renew: Aspirin EC 81 MG Oral Tablet Delayed Release; TAKE ONE TABLET THURSDAY AND THURSDAY Renew: Losartan Potassium 50 MG Oral Tablet; TAKE 1 TABLET TWICE DAILY 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, Chronic kidney disease, stage 3, High risk medication use Basic Metabolic Panel; Status:Active - Retrospective Authorization; Requested for:[id number]; Complete Blood Count; Status:Active - Retrospective Authorization; Requested for:[id number]; 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, Essential hypertension Renew: Metoprolol Succinate ER 50 MG Oral Tablet Extended Release 24 Hour; TAKE 1 TABLET Daily 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, Hyperlipidemia ALT - Alanine Aminotransferase, Serum; Status:Active - Retrospective Authorization; Requested for:[id number]; AST; Status:Active - Retrospective Authorization; Requested for:[id number]; Lipid Panel; Status:Active - Retrospective Authorization; Requested for:[id number]; Class 1 obesity with body mass index (BMI) of 34.0 to 34.9 in adult Healthy Weight Tips; Status:Complete - Retrospective Authorization; Done: [id number] Deep vein thrombosis Start: Xarelto 10 MG Oral Tablet; Take 1 tablet daily Essential hypertension Start: amLODIPine Besylate 5 MG Oral Tablet (Norvasc); TAKE 1 TABLET DAILY SocHx: Never a smoker Tobacco Use Screening; Status:Complete; Done: [id number] Unlinked Stop: Xarelto 20 MG Oral Tablet [...] to be monitored closely Fariha Guidry MD, [facility] Surgical History Problems History of Angioplasty History of Cholecystectomy History of Colonoscopy History of Hysterectomy Past Medical History Problems History of angina pectoris (V12. (more content not included)... Normal [facility] Tobacco Screening.on 022 Adult depression screening assessment No [facility] [employer] 250 DO Work Phone: Fall risk assessment a) No falls within the last year [facility] [employer] feliz 250 DO Work Phone: Tobacco use status [facility] b) No [facility] [employer] feliz 250 DO Work Phone: Vital Signs Date Time Vital Sign Value Performing Clinician Facility 04-10-2023 09:19-0500 Body temperature 98.42 [degF] [facility] 04-10-2023 09:19-0500 Diastolic blood pressure 68 mm[Hg] [facility] 04-10-2023 09:19-0500 Heart rate 82 /min [facility] 04-10-2023 09:19-0500 Respiratory rate 16 /min [facility] 04-10-2023 09:19-0500 SaO2% (BldA) [Mass fraction] 97 % [facility] 04-10-2023 09:19-0500 Systolic blood pressure 168 mm[Hg] [facility] 03-20-2023 09:00-0500 Blood Pressure Location Christopher GLOLE [facility] 03-20-2023 09:00-0500 Body temperature 98.42 [degF] Christopher KAPLE [facility] 03-20-2023 09:00-0500 Diastolic blood pressure 80 mm[Hg] Christopher KAPLE [facility] 03-20-2023 09:00-0500 Heart rate 70 /min Christopher KAPLE [facility] 03-20-2023 09:00-0500 Respiratory rate 16 /min Christopher KAPLE [facility] 03-20-2023 09:00-0500 SaO2% (BldA) [Mass fraction] 99 % Christopher RUSSELL [facility] 03-20-2023 09:00-0500 Systolic blood pressure 132 mm[Hg] Christopher RUSSELL [facility] 03-04-2023 09:09-0500 Heart rate 80 /min Nicola Tapia [facility] 03-04-2023 09:09-0500 SaO2% (BldA) [Mass fraction] 99 % Nicola Tapia [facility] 03-04-2023 09:09-0500 Diastolic blood pressure 67 mm[Hg] Nicola Tapia [facility] 03-04-2023 09:09-0500 Mean blood pressure 91 mm[Hg] Nicola Tapia [facility] 03-04-2023 09:09-0500 Systolic blood pressure 138 mm[Hg] Nicola Tapia [facility] 03-04-2023 09:09-0500 Respiratory rate 16 /min Nicola Tapia [facility] 03-04-2023 09:04-0500 Diastolic blood pressure 96 mm[Hg] Nicola Tapia [facility] 03-04-2023 09:04-0500 Heart rate 84 /min Nicola Tapia [facility] 03-04-2023 09:04-0500 SaO2% (BldA) [Mass fraction] 98 % Nicola Tapia [facility] 03-04-2023 09:04-0500 Systolic blood pressure 165 mm[Hg] Nicola Tapia [facility] 03-04-2023 08:12-0500 Heart rate 82 /min Nicola Tapia [facility] 03-04-2023 08:12-0500 SaO2% (BldA) [Mass fraction] 97 % Nicola Tapia [facility] 03-04-2023 08:12-0500 Diastolic blood pressure 75 mm[Hg] Nicola Tapia [facility] 03-04-2023 08:12-0500 Mean blood pressure 103 mm[Hg] Nicola Tapia [facility] 03-04-2023 08:12-0500 Systolic blood pressure 159 mm[Hg] Nicola Tapia [facility] 03-04-2023 08:12-0500 Body temperature 98.42 [degF] Nicola Tapia [facility] 03-04-2023 08:11-0500 Respiratory rate 14 /min Nicola Tapia [facility] 03-03-2023 11:45-0500 Body height 165.1 cm Miguel Membreno Other [employer] Other 03-03-2023 11:45-0500 Body mass index (BMI) [Ratio] 33.28 kg/m2 Miguel Membreno Other [employer] Other 03-03-2023 11:45-0500 Body temperature 97.8 [degF] Miguel Membreno Other [employer] Other 03-03-2023 11:45-0500 Body weight 90.72 kg Miguel Membreno Other [employer] Other 03-03-2023 11:45-0500 Diastolic blood pressure 72 mm[Hg] Miguel Membreno Other [employer] Other 03-03-2023 11:45-0500 SaO2% (BldA) [Mass fraction] 96 % Miguel Membreno Other [facility] [employer] Other 03-03-2023 11:45-0500 Systolic blood pressure 124 mm[Hg] Miguel Membreno Other [facility] [employer] Other 02-18-2023 13:40-0500 Diastolic blood pressure 70 mm[Hg] DO Christopher Kaple Work Phone: [facility] 02-18-2023 13:40-0500 Heart rate 64 /min DO Christopher Kaple Work Phone: [facility] 02-18-2023 13:40-0500 Respiratory rate 16 /min DO Christopher Kaple Work Phone: [facility] 02-18-2023 13:40-0500 SaO2% (BldA) [Mass fraction] 98 % DO Christopher Kaple Work Phone: [facility] 02-18-2023 13:40-0500 Systolic blood pressure 169 mm[Hg] DO Christopher Kaple Work Phone: [facility] 02-18-2023 12:40-0500 Inhaled oxygen flow rate 1 L/min DO Christopher Kaple Work Phone: [facility] 02-18-2023 09:15-0500 Body height 165.1 cm DO Christopher Kaple Work Phone: [facility] 02-18-2023 09:15-0500 Body weight 97.52 kg DO Christopher Kaple Work Phone: [facility] 02-16-2023 13:23-0500 Heart rate 76 /min Gary Prashant [facility] 02-16-2023 13:23-0500 SaO2% (BldA) [Mass fraction] 96 % Gary Prashant [facility] 02-16-2023 13:22-0500 Diastolic blood pressure 80 mm[Hg] Gary Cerda [facility] 02-16-2023 13:22-0500 Mean blood pressure 105 mm[Hg] Gary Cerda [facility] 02-16-2023 13:22-0500 Systolic blood pressure 155 mm[Hg] Gary Cerda [facility] 02-16-2023 13:22-0500 Body temperature 97.7 [degF] Gary Cerda [facility] 02-16-2023 13:21-0500 Respiratory rate 16 /min Gary Cerda [facility] 02-12-2023 09:03-0500 Body height 165.1 cm Fariha Guidry MD Work Phone: [facility] 02-12-2023 09:03-0500 Body mass index (BMI) [Ratio] 35.78 kg/m2 Fariha Guidry MD Work Phone: [facility] 02-12-2023 09:03-0500 Body weight 97.52 kg Fariha Guidry MD Work Phone: [facility] 02-12-2023 09:03-0500 Diastolic blood pressure 64 mm[Hg] Fariha Guidry MD Work Phone: [facility] 02-12-2023 09:03-0500 Heart rate 64 /min Fariha Guidry MD Work Phone: [facility] 02-12-2023 09:03-0500 Systolic blood pressure 120 mm[Hg] Fariha Guidry MD Work Phone: [facility] 01-26-2023 08:00-0500 Blood Pressure Location Christopher WELLS [facility] 01-26-2023 08:00-0500 Body temperature 98.6 [degF] Christopher KAPLE [facility] 01-26-2023 08:00-0500 Diastolic blood pressure 72 mm[Hg] Christopher KAPLE [facility] 01-26-2023 08:00-0500 Heart rate 65 /min Christopher KAPLE [facility] 01-26-2023 08:00-0500 SaO2% (BldA) [Mass fraction] 96 % Christopher KAPLE [facility] 01-26-2023 08:00-0500 Systolic blood pressure 124 mm[Hg] Christopher KAPLE [facility] 01-06-2023 08:13-0400 Diastolic blood pressure 78 mm[Hg] Gary Prashant [facility] 01-06-2023 08:13-0400 Heart rate 69 /min Gary Prashant [facility] 01-06-2023 08:13-0400 Mean blood pressure 107 mm[Hg] Gary Prashant [facility] 01-06-2023 08:13-0400 Respiratory rate 14 /min Gary Pr[facility] 01-06-2023 08:13-0400 Systolic blood pressure 166 mm[Hg] Gary Prashant [facility] 01-05-2023 09:15-0400 Body height 165.1 cm Miguel Membreno Other [employer] Other 01-05-2023 09:15-0400 Body mass index (BMI) [Ratio] 33.28 kg/m2 Miguel Buehrer Other [employer] Other 01-05-2023 09:15-0400 Body temperature 96.3 [degF] Miguel Buehrer Other [employer] Other 01-05-2023 09:15-0400 Body weight 90.72 kg Miguel Maierehrer Other [employer] Other 01-05-2023 09:15-0400 Diastolic blood pressure 62 mm[Hg] Miguel Buehrer Other [employer] Other 01-05-2023 09:15-0400 SaO2% (BldA) [Mass fraction] 97 % Miguel Buehrer Other [employer] Other 01-05-2023 09:15-0400 Systolic blood pressure 120 mm[Hg] Miguel Buehrer Other [employer] Other 11-04-2022 12:00-0400 Body height 165.1 cm Miguel Martinezrer Other [employer] Other 11-04-2022 12:00-0400 Body mass index (BMI) [Ratio] 33.28 kg/m2 Miguel Maierehrer Other [employer] Other 11-04-2022 12:00-0400 Body temperature 97.1 [degF] Miguel Buehrer Other [employer] Other 11-04-2022 12:00-0400 Body weight 90.72 kg Miguel Maierehrer Other [employer] Other 11-04-2022 12:00-0400 Diastolic blood pressure 70 mm[Hg] Miguel Butcherr Other [employer] Other 11-04-2022 12:00-0400 SaO2% (BldA) [Mass fraction] 95 % Miguel Membreno Other [employer] Other 11-04-2022 12:00-0400 Systolic blood pressure 140 mm[Hg] Miguel Membreno Other [employer] Other 11-03-2022 10:30-0400 Body height 165.1 cm Renetta Barahona Other [employer] Other 11-03-2022 10:30-0400 Body mass index (BMI) [Ratio] 33.28 kg/m2 Renetta Barahona Other [employer] Other 11-03-2022 10:30-0400 Body temperature 97.6 [degF] Renetta Barahona Other [employer] Other 11-03-2022 10:30-0400 Body weight 90.72 kg Renetta Barahona Other [employer] Other 11-03-2022 10:30-0400 Diastolic blood pressure 76 mm[Hg] Renetta Barahona Other [employer] Other 11-03-2022 10:30-0400 SaO2% (BldA) [Mass fraction] 98 % Renetta Barahona Other [employer] Other 11-03-2022 10:30-0400 Systolic blood pressure 116 mm[Hg] Renetta Barahona Other [facility] [employer] Other 09-10-2022 08:12-0400 Blood Pressure Location Lindajahaira MeltonOsmin [facility] 09-10-2022 08:12-0400 Body temperature 96.8 [degF] Linda Osmin [facility] 09-10-2022 08:12-0400 Diastolic blood pressure 71 mm[Hg] Linda Osmin [facility] 09-10-2022 08:12-0400 Heart rate 56 /min Linda Osmin [facility] 09-10-2022 08:12-0400 Systolic blood pressure 118 mm[Hg] Linda Osmin [facility] 06-11-2022 09:10-0400 Diastolic blood pressure 70 mm[Hg] Linda Osmin [facility] 06-11-2022 09:10-0400 Mean blood pressure 92 mm[Hg] Linda Osmin [facility] 06-11-2022 09:10-0400 Systolic blood pressure 136 mm[Hg] Linda Osmin [facility] 06-11-2022 09:04-0400 Blood Pressure Location Linda Osmin [facility] 06-11-2022 09:04-0400 Body temperature 97.88 [degF] Linda Osmin [facility] 06-11-2022 09:04-0400 Diastolic blood pressure 75 mm[Hg] Linda Osmin [facility] 06-11-2022 09:04-0400 Heart rate 66 /min Linda Solorio [facility] 06-11-2022 09:04-0400 Systolic blood pressure 155 mm[Hg] Linda Solorio [facility] 05-05-2022 09:45-0500 Body height 165.1 cm Miguel Membreno Other [employer] Other 05-05-2022 09:45-0500 Body mass index (BMI) [Ratio] 33.28 kg/m2 Miguel Membreno Other [employer] Other 05-05-2022 09:45-0500 Body temperature 96.2 [degF] Miguel Membreno Other [employer] Other 05-05-2022 09:45-0500 Body weight 90.72 kg Miguel Membreno Other [employer] Other 05-05-2022 09:45-0500 Diastolic blood pressure 60 mm[Hg] Miguel Membreno Other [employer] Other 05-05-2022 09:45-0500 SaO2% (BldA) [Mass fraction] 97 % Miguel eMmbreno Other [employer] Other 05-05-2022 09:45-0500 Systolic blood pressure 112 mm[Hg] Miguel Membreno Other [employer] Other 04-07-2022 20:00-0500 Diastolic blood pressure 80 mm[Hg] DO Christopher Wells Work Phone: [facility] 04-07-2022 20:00-0500 Heart rate 70 /min DO Christopher Kaple Work Phone: [facility] 04-07-2022 20:00-0500 Respiratory rate 18 /min DO Christopher Kaple Work Phone: [facility] 04-07-2022 20:00-0500 SaO2% (BldA) [Mass fraction] 98 % DO Christopher Kaple Work Phone: [facility] 04-07-2022 20:00-0500 Systolic blood pressure 159 mm[Hg] DO Christopher Kaple Work Phone: [facility] 04-07-2022 17:05-0500 Body temperature 98.1 [degF] DO Christopher Kaple Work Phone: [facility] 04-07-2022 16:20-0500 Inhaled oxygen flow rate 2 L/min DO Christopher Kaple Work Phone: [facility] 04-07-2022 13:53-0500 Body height 165.1 cm DO Christopher Kaple Work Phone: [facility] 04-07-2022 13:53-0500 Body weight 90.71 kg DO Christopher Kaple Work Phone: [facility] 03-31-2022 10:15-0500 Body height 165.1 cm Renetta Barahona Other [employer] Other 03-31-2022 10:15-0500 Body mass index (BMI) [Ratio] 33.28 kg/m2 Renetta Barahona Other [employer] Other 03-31-2022 10:15-0500 Body temperature 98.7 [degF] Renetta Barahona Other [employer] Other 03-31-2022 10:15-0500 Body weight 90.72 kg Renetta Barahona Other [employer] Other 03-31-2022 10:15-0500 Diastolic blood pressure 82 mm[Hg] Renetta Barahona Other [employer] Other 03-31-2022 10:15-0500 SaO2% (BldA) [Mass fraction] 98 % Renetta Barahona Other [employer] Other 03-31-2022 10:15-0500 Systolic blood pressure 136 mm[Hg] Renetta Barahona Other [employer] Other 01-27-2022 12:00-0500 Body height 165.1 cm Miguel Membreno Other [employer] Other 01-27-2022 12:00-0500 Body mass index (BMI) [Ratio] 33.28 kg/m2 Miguel Martinezremelissa Other [employer] Other 01-27-2022 12:00-0500 Body temperature 97.7 [degF] Miguel Martinezrer Other [employer] Other 01-27-2022 12:00-0500 Body weight 90.72 kg Miguel Buehrer Other [employer] Other 01-27-2022 12:00-0500 Diastolic blood pressure 70 mm[Hg] Miguel Maierehrer Other [employer] Other 01-27-2022 12:00-0500 SaO2% (BldA) [Mass fraction] 98 % Miguel Martinezrer Other [employer] Other 01-27-2022 12:00-0500 Systolic blood pressure 142 mm[Hg] Miguel Membreno Other [employer] Other 01-15-2022 10:29-0400 Body height 165.1 cm Christopher Wells [facility] 600 DO Work Phone: 01-15-2022 10:29-0400 Body mass index (BMI) [Ratio] 34.95 kg/m2 Christopher Wells Work Phone: [facility] 600 DO Work Phone: 01-15-2022 10:29-0400 Body surface area Derived from formula 2.02 m2 Christopher Wells Work Phone: [facility] 600 DO Work Phone: 01-15-2022 10:29-0400 Body weight 95.26 kg Christopher Wells Work Phone: [facility] 600 DO Work Phone: 01-15-2022 10:29-0400 Diastolic blood pressure 60 mm[Hg] Christopher Wells Work Phone: [facility] 600 DO Work Phone: 01-15-2022 10:29-0400 Heart rate 68 /min Christopher Wells Work Phone: [facility] 600 DO Work Phone: 01-15-2022 10:29-0400 Systolic blood pressure 116 mm[Hg] Christopher Wells Work Phone: [facility] 600 DO Work Phone: 11-28-2021 15:19-0400 Blood Pressure Location Charis Daniel [facility] 11-28-2021 15:19-0400 Diastolic blood pressure 69 mm[Hg] Charis Fredy [facility] 11-28-2021 15:19-0400 Heart rate 61 /min Charis Fredy [facility] 11-28-2021 15:19-0400 Respiratory rate 18 /min Charis Fredy [facility] 11-28-2021 15:19-0400 SaO2% (BldA) [Mass fraction] 98 % Charis Fredy [facility] 11-28-2021 15:19-0400 Systolic blood pressure 132 mm[Hg] Charis Fredy [facility] 10-28-2021 09:56-0400 Blood Pressure Location Mohlucio Fredy [facility] 10-28-2021 09:56-0400 Diastolic blood pressure 72 mm[Hg] Charis Fredy [facility] 10-28-2021 09:56-0400 Heart rate 76 /min Charis Fredy [facility] 10-28-2021 09:56-0400 SaO2% (BldA) [Mass fraction] 96 % Charis Fredy [facility] 10-28-2021 09:56-0400 Systolic blood pressure 120 mm[Hg] Charis Fredy [facility] 05-28-2021 12:25-0400 Diastolic blood pressure 64 mm[Hg] Christopher Wells Work Phone: [facility] 600 DO Work Phone: 05-28-2021 12:25-0400 Systolic blood pressure 130 mm[Hg] Christopher Wells Work Phone: [facility] 600 DO Work Phone: 05-28-2021 12:21-0400 Body height 165.1 cm Christopher Wells Work Phone: [facility] 600 DO Work Phone: 05-28-2021 12:21-0400 Body mass index (BMI) [Ratio] 33.98 kg/m2 Christopher Bale Work Phone: [facility] 600 DO Work Phone: 05-28-2021 12:21-0400 Body surface area Derived from formula 2 m2 Christopher Wells Work Phone: [facility] 600 DO Work Phone: 05-28-2021 12:21-0400 Body weight 92.63 kg Christopher Wells [facility] Work Phone: 05-28-2021 12:21-0400 Diastolic blood pressure 76 mm[Hg] Christopher Wells Work Phone: [facility] 600 DO Work Phone: 05-28-2021 12:21-0400 Heart rate 68 /min Christopher Wells Work Phone: [facility] 600 DO Work Phone: 05-28-2021 12:21-0400 Systolic blood pressure 140 mm[Hg] Christopher Wells Work Phone: [facility] 600 DO Work Phone: 05-08-2021 11:36-0500 Diastolic blood pressure 90 mm[Hg] Christopher Wells Work Phone: [facility] 250 DO Work Phone: 05-08-2021 11:36-0500 Systolic blood pressure 180 mm[Hg] Christopher Wells Work Phone: [facility] 250 DO Work Phone: 05-08-2021 11:20-0500 Body height 165.1 cm Christopher Wells Work Phone: [facility] 250 DO Work Phone: 05-08-2021 11:20-0500 Body mass index (BMI) [Ratio] 34.11 kg/m2 Christopher Bale Work Phone: [facility] 250 DO Work Phone: 05-08-2021 11:20-0500 Body surface area Derived from formula 2 m2 Christopher Wells Work Phone: [facility] 250 DO Work Phone: 05-08-2021 11:20-0500 Body weight 92.99 kg Christopher Wells Work Phone: [facility] 250 DO Work Phone: 05-08-2021 11:20-0500 Diastolic blood pressure 90 mm[Hg] Christopher Wells Work Phone: [facility] 250 DO Work Phone: 05-08-2021 11:20-0500 Heart rate 68 /min Christopher Wells Work Phone: [facility] 250 DO Work Phone: 05-08-2021 11:20-0500 Systolic blood pressure 142 mm[Hg] Christopher Wells Work Phone: [facility] 250 DO Work Phone: Encounters Encounter Date Encounter Type Care Provider Facility Start: 04-10-2023 End: 04-10-2023 Emergency department patient visit Malvin Gupta Facility:[facility] Start: 04-10-2023 End: 04-10-2023 Emergency department patient visit Malvin Gupta [facility] Start: 03-23-2023 End: 03-24-2023 ambulatory Mara Dawit Facility:[facility] Start: 03-20-2023 End: 03-21-2023 ambulatory Christopher WELLS Facility:[place] Start: 03-20-2023 End: 03-20-2023 Patient encounter procedure Christopher WELLS [facility] Start: 03-18-2023 End: 03-18-2023 ambulatory DENTON D DOLCE Not Available Start: 03-04-2023 End: 03-05-2023 ambulatory DO Nicola Tapia Facility:[facility] Start: 03-04-2023 End: 03-04-2023 Pain Management Nicola Tapia [facility] Start: 03-03-2023 End: 03-03-2023 Patient encounter procedure Denton D Angelyce [facility] Start: 03-03-2023 End: 03-04-2023 ambulatory Denton D Dolce [facility] [employer] Other Start: 03-03-2023 Office outpatient vi sit 25 minutes Miguel CHOI V[facility] Start: 03-02-2023 End: 03-03-2023 ambulatory Linda Solorio Facility:[facility] Start: 03-02-2023 End: 03-02-2023 Patient encounter procedure Linda Solorio [facility] Start: 02-24-2023 End: 02-25-2023 ambulatory Denton D Dolce Facility:[facility] Start: 02-20-2023 End: 02-20-2023 ambulatory DENTON D DOLCE Not Available Start: 02-19-2023 End: 04-10-2023 ambulatory Christopher WELLS Facility:CD:[id number] Start: 02-18-2023 End: 02-18-2023 ambulatory Miguel Membreno Facility:[facility] Start: 02-18-2023 End: 02-18-2023 Admission to same day surgery center DO Christopher Wells Work Phone: [facility] Work Phone: Start: 02-18-2023 End: 02-18-2023 ambulatory DO Christopher Wells Work Phone: [facility] Work Phone: Start: 02-16-2023 End: 02-17-2023 ambulatory MD Gary Cerda Facility:[facility] Start: 02-16-2023 End: 02-16-[address] [facility] Start: 02-16-2023 End: 02-17-2023 ambulatory Denton Mares Facility:[facility] Start: 02-16-2023 End: 02-16-2023 Patient encounter procedure Denton Mares [facility] Start: 02-12-2023 End: 02-12-2023 ambulatory [facility] Ambulatory Start: 02-12-2023 End: 02-12-2023 Office outpatient visit 25 minutes Fariha Guidry MD Work Phone: [facility] Comment on above: Atherosclerosis of n ative coronary artery of lovelock heart without angina pectoris; Status post coronary angioplasty; Essential hypertension; Hyperlipidemia, unspecified hyperlipidemia type; PVD (peripheral vascular disease) ([facility]/HCC); Stage 3 chronic kidney disease, unspecified whether stage 3a or 3b CKD (CMS/HCC); Sleep apnea, unspecified type Start: 02-10-2023 End: 02-11-2023 ambulatory Denton Mares Facility:[facility] Start: 02-10-2023 End: 02-10-2023 Patient encounter procedure Denton Mares [facility] Start: 01-27-2023 End: 01-28-2023 ambulatory Denton Mares [employer] Other Start: 01-27-2023 Telephone encounter Miguel Membreno [facility] Vascular Surgery Start: 01-27-2023 End: 01-27-2023 Patient encounter procedure Denton Mares [facility] Start: 01-26-2023 End: 01-27-2023 ambulatory Christopher WELLS Facility:[facility] Start: 01-26-2023 End: 01-26-2023 Patient encounter procedure Christopher WELLS [facility] Start: 01-26-2023 End: 01-26-2023 Well adult monitoring check done Christopher WELLS [facility] Start: 01-19-2023 End: 01-20-2023 ambulatory Denton Mares Facility:[facility] Start: 01-19-2023 End: 01-19-2023 Patient encounter procedure Denton Mares [facility] Start: 01-13-2023 End: 01-14-2023 ambulatory Denton Gomez Angelygreg Facility:[facility] Start: 01-13-2023 End: 01-13-2023 Patient encounter procedure Denton Mares [facility] Start: 01-06-2023 End: 01-07-2023 ambulatory MD Gary Cerda Facility:[facility] Start: 01-06-2023 End: 01-06-[address] Cer[address] [facility] Start: 01-05-2023 End: 01-05-2023 ambulatory Miguel Membreno Other [employer] Other Start: 01-05-2023 Office outpatient vi sit 25 minutes Miguel Membreno [facility] Vascular Surgery Start: 12-31-2022 End: 01-01-2023 ambulatory Catrachito Wolf Facility:[facility] Start: 12-31-2022 End: 12-31-2022 Patient encounter procedure Catrachito Wolf [facility] Start: 12-22-2022 End: 12-23-2022 ambulatory Denton Jason Mares Facility:[facility] Start: 12-18-2022 End: 12-19-2022 ambulatory Christopher A RUSSELL Facility:[place] [facility] Start: 12-08-2022 End: 12-09-2022 ambulatory Catrachito Wolf Facility:[facility] Start: 12-08-2022 End: 12-08-2022 Patient encounter procedure Catrachito Wolf [facility] Start: 11-24-2022 End: 11-25-2022 ambulatory Christopher WELLS Facility:[facility] Start: 11-24-2022 End: 11-24-2022 Patient encounter procedure Christopher A RUSSELL [facility] Start: 11-06-2022 End: 11-07-2022 ambulatory Christopher WELLS Facility:[place] Start: 11-04-2022 Office outpatient vi sit 25 minutes Miguel Membreno [facility] Vascular Surgery Start: 11-04-2022 End: 11-04-2022 ambulatory DO Christopher Wells Work Phone: [facility] [employer] Other Start: 11-04-2022 End: 11-04-2022 Patient encounter procedure DO Christopher Wells Work Phone: [facility] Start: 11-03-2022 Follow-up encounter Renetta Musa Vascular Surgery Start: 11-03-2022 End: 11-03-2022 ambulatory Christopher Wells [facility] [employer] Other Start: 11-03-2022 End: 11-03-2022 Patient encounter procedure DO Christopher Wells Work Phone: [facility] Start: 10-31-2022 End: 11-01-2022 ambulatory Klaus Akkina Facility:[facility] Start: 10-31-2022 End: 10-31-2022 Patient encounter procedure Klaus Akkina [facility] Start: 09-18-2022 Chart Update Christopher Wells Work Phone: [facility] 250 DO Work Phone: Start: 09-17-[address] Christopher Wells [facility] ity:[id number] Start: 09-10-2022 End: 09-11-2022 ambulatory Linda Solorio Facility:[facility] Start: 09-10-2022 End: 09-10-2022 Patient encounter procedure Linda Solorio [facility] Start: 08-01-2022 End: 08-02-2022 ambulatory Fariha Delucaim Facility:[facility] Start: 07-23-2022 Rx Renewal Christopher Wells Work Phone: [facility] 250 DO Work Phone: Start: 06-13-2022 Rx Renewal Christopher Wells [facility] Work Phone: Start: 06-11-2022 End: 06-12-2022 ambulatory [facility] Start: 06-11-2022 End: 06-11-2022 Patient encounter procedure Linda Solorio [facility] Start: 05-21-2022 End: 05-22-2022 ambulatory Luis BENSON Facility:[facility] Start: 05-08-2022 End: 05-09-2022 ambulatory Linda Solorio Facility:[facility] Start: 05-08-2022 End: 05-08-2022 Lab Drop off Linda Solorio [facility] Start: 05-05-2022 End: 05-06-2022 ambulatory Linda Solorio [facility] [employer] Other Start: 05-05-2022 Office outpatient vi sit 25 minutes Miguel Membreno [facility] Vascular Surgery Start: 04-08-2022 End: 04-08-2022 ambulatory Renetta Barahona Other [facility] [employer] Other Start: 04-08-2022 Telephone encounter Renetta Musa Vascular Surgery Start: 04-07-2022 End: 04-07-2022 ambulatory Miguel Membreno Facility:[facility] Start: 04-07-2022 End: 04-07-2022 Admission to same day surgery center DO Christopher Wells Work Phone: [facility] Work Phone: Start: 04-07-2022 End: 04-07-2022 ambulatory DO Christopher Montenegro Kapjanna Work Phone: [facility] Work Phone: Start: 03-31-2022 Follow-up encounter Renetta Musa Vascular Surgery Start: 03-31-2022 End: 03-31-2022 ambulatory Miguel Membreno Facility:[facility] Start: 03-31-2022 End: 03-31-2022 ambulatory DO Christopher A Kapjanna Work Phone: [facility] Work Phone: Start: 03-31-2022 End: 03-31-2022 Patient encounter procedure DO Christopher Kaple Work Phone: [facility] Start: 03-31-2022 End: 03-31-2022 Patient encounter procedure Klaus Núñez [facility] Start: 02-12-2022 End: 02-12-2022 Patient encounter procedure Christopher WELLS [facility] Start: 01-27-2022 End: 01-27-2022 ambulatory Miguel Membreno Other [facility] [employer] Other Start: 01-27-2022 Office outpatient ne w 45 minutes Miguel Membreno [facility] Vascular Surgery Start: 01-15-[address] Fariha cesar [facility] Facility: Start: 01-15-2022 Office outpatient vi sit 25 minutes Christopher Wells Work Phone: [facility] 600 DO Work Phone: Start: 12-31-2021 End: 06-01-[address] [facility] Start: 11-28-2021 End: 11-28-2021 Patient encounter procedure Charis Daniel [facility] Start: 11-12-2021 Rx Renewal Christopher Wells Work Phone: [facility] 250 DO Work Phone: Start: 10-28-2021 Rx Renewal [facility] Work Phone: Start: 10-28-2021 End: 10-28-2021 Patient encounter procedure Charis Daniel [facility] Start: 10-01-2021 End: 10-01-2021 Patient encounter procedure Christopher WELLS [facility] Start: 09-24-2021 End: 09-24-2021 Patient encounter procedure Christopher WELLS [facility] Start: 08-08-2021 End: 08-08-2021 Patient encounter procedure Christopher WELLS [facility] Start: 07-30-2021 Rx Renewal Christopher Wells Work Phone: [facility] 250 DO Work Phone: Start: 06-12-2021 End: 01-13-[address] [facility] Start: 05-28-2021 Office outpatient vi sit 10 minutes Christopher Wells Work Phone: [facility] 600 DO Work Phone: Start: 05-28-2021 ambulatory Christopher Wells Facility: Start: 05-12-2021 Chart Update Christopher Wells [facility] Work Phone: Start: 05-08-2021 ambulatory [...] 05-21-2032 Screening for malignant neoplasm of colon [facility] Start: 05-09-2025 DTaP/Tdap/Td Vaccines (2 - Td or Tdap) DTaP/Tdap/Td Vaccines (2 - Td or Tdap) [facility] Start: 02-01-2024 ambulatory Ambulatory Facility:[facility] Start: 07-28-2023 ambulatory Ambulatory Facility:[facility] Start: 02-18-2023 US Lower extremity veins - bilateral [facility] Start: 02-18-2023 US scan venography of lower limbs US venous mapping [facility] Start: 02-18-2023 [facility] Start: 02-12-2023 End: 02-13-2024 Alanine aminotransferase [Enzymatic activity/volume] in Serum or Plasma by With P-5'-P Alanine Aminotransferase Lab Routine 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 Hyperlipidemia, unspecified hyperlipidemia type Expected: 02/12/2023 (Approximate), Expires: 02/13/2024 [facility] Service Area Work Phone: Comment on above: Expected: 02/12/2023 (Approximate), Expi res: 02/13/2024 Start: 02-12-2023 End: 02-13-2024 Aspartate aminotransferase [Enzymatic activity/volume] in Serum or Plasma by With P-5'-P Aspartate Aminotransferase Lab Routine 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 Hyperlipidemia, unspecified hyperlipidemia type Expected: 02/12/2023 (Approximate), Expires: 02/13/2024 [facility] Work Phone: Comment on above: Expected: 02/12/2023 (Approximate), Expi res: 02/13/2024 Start: 02-12-2023 End: 02-13-2024 Lipid 1996 panel - Serum or Plasma Lipid Panel Lab Routine 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 Hyperlipidemia, unspecified hyperlipidemia type Expected: 02/12/2023 (Approximate), Expires: 02/13/2024 [facility] Work Phone: Comment on above: Expected: 02/12/2023 (Approximate), Expi res: 02/13/2024 Start: 02-12-2023 FUV, Provider: Fariha Guidry, Status: Pen, Time: 9:00 AM FUV, Provider: Fariha Guidry, Status: Pen, Time: 9:00 AM [facility] Work Phone: Start: 11-14-2022 Influenza vaccination Influenza Vaccine (#1) [facility] Start: 07-30-2022 FUV, Provider: Fariha Guidry, Status: Pen, Time: 8:40 AM FUV, Provider: Fariha Guidry, Status: Pen, Time: 8:40 AM [facility] Work Phone: Start: 04-07-2022 [facility] Start: 02-12-2022 COVID-19 Vaccine (4 - Booster for Luca series) COVID-19 Vaccine (4 - Booster for Luca series) [facility] Start: 01-15-2022 FUV, Provider: Fariha Guidry, Status: Pen, Time: 10:10 AM FUV, Provider: Fariha Guidry, Status: Pen, Time: 10:10 AM [facility] Work Phone: Start: 05-28-2021 NURSEVST, 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 1,[id number], Status: Pen, Time: 11:45 AM 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, 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 1,[id number], Status: Pen, Time: 11:45 AM [facility] 250 DO Work Phone: Start: 1989 Screening for malignant neoplasm of breast Mammogram [facility] Start: 06-25-1967 Diabetes mellitus screening Diabetes Screening [facility] Start: 06-25-1967 Hepatitis C screening Hepatitis C Screening [facility] Start: 1949 Lipid panel Lipid Panel [facility] Start: 1949 Medicare Annual Wellness Visit Medicare Annual Wellness Visit (AWV) [facility] Start: 1949 Screening for malignant neoplasm of colon [facility] Start: 1949 Screening for osteoporosis Bone Density Scan [facility] Patient Education [facility] Work Phone: Patient referral [facility] Work Phone: Immunizations Immunization Date Immunization Notes Care Provider Fa cility 12-18-2021 Fluad Quadrivalent 0 .5 ML Intramuscular Prefilled Syringe Christopher Wells Work Phone: [facility] 600 DO Work Phone: 12-18-2021 influenza virus vaccine, unspecified formulation Christopher WELLS [facility] 12-18-2021 Pfizer COVID-19 Vac Bivalent 30 MCG/0.3ML Intramuscular Suspension Christopher Wells Work Phone: [facility] 600 DO Work Phone: 12-18-2021 SARS-CoV-2 (COVID-19 ) mRNA BNT-162b2 vax Christopher WELLS [facility] 03-26-2021 Fluzone High-Dose Quadrivalent 0.7 ML Intramuscular Suspension Prefilled Syringe Christopher Wells Work Phone: [facility] 250 DO Work Phone: 03-26-2021 influenza virus vaccine, unspecified formulation Christopher WELLS [facility] 03-26-2021 Pfizer-BioNTech COVID-19 Vacc 30 MCG/0.3ML Intramuscular Suspension Christopher Wells Work Phone: [facility] 250 DO Work Phone: 05-19-2020 Luca COVID-19 Vaccine 0.5 ML Intramuscular Suspension Christopher Wells Work Phone: [facility] 250 DO Work Phone: 05-18-2020 COVID-19 vaccine, vector-nr, rS-Ad26, PF, 0.5 mL; Translations: [Luca COVID-19 Vaccine] Christopher WELLS [facility] Comment on above: Reason for Medicatio n: Prophylaxis Reason for Medicatio n: Prophylaxis 02-23-2020 zoster vaccine recombinant Christopher Wells Work Phone: [facility] 250 DO Work Phone: 01-05-2020 Fluad Quadrivalent 0 .5 ML Intramuscular Prefilled Syringe Christopher Wells Work Phone: [facility] 250 DO Work Phone: 01-05-2020 influenza virus vaccine, unspecified formulation Christopher WELLS [facility] 12-28-2019 influenza, high dose seasonal, preservative-free Christopher Wells Work Phone: [place] [address] DO Work Phone: 12-15-2019 influenza virus vaccine, unspecified formulation Chrisotpher WELLS [facility] 11-15-2019 zoster vaccine recombinant Christopher Wells Work Phone: [place] [address] DO Work Phone: 11-15-2019 zoster vaccine, live Christopher MARTI [facility] 12-20-2018 influenza, high dose seasonal, preservative-free Christopher WELLS [facility] 12-14-2018 influenza virus vaccine, unspecified formulation Christopher WELLS [facility] 12-14-2018 influenza, high dose seasonal, preservative-free Christopher Wells Work Phone: [place] [address] DO Work Phone: 12-14-2018 pneumococcal polysaccharide vaccine, 23 valent Christopher Wells Work Phone: [place] [address] DO Work Phone: 02-16-2018 influenza virus vaccine, unspecified formulation Christopher WELLS [facility] 02-16-2018 Influenza, injectabl e, Madin Hannah Canine Kidney, preservative free, quadrivalent Christopher Wells Work Phone: [place] [address] DO Work Phone: 02-16-2018 pneumococcal conjuga te vaccine, 13 valent Christopher Moni Russell Work Phone: [place] [address] DO Work Phone: 11-14-2017 influenza virus vaccine, unspecified formulation Christopher Montenegro Russell Work Phone: [place] [address] DO Work Phone: 11-27-2016 influenza virus vaccine, unspecified formulation Christopher RUSSELL [facility] 11-27-2016 influenza, high dose seasonal, preservative-free Christopher Bajanna Work Phone: [place] [address] DO Work Phone: 01-21-2016 influenza virus vaccine, unspecified formulation Christopher BAJANNA [facility] 01-21-2016 influenza, high dose seasonal, preservative-free Christopher Bajanna Work Phone: [place] [address] DO Work Phone: 05-09-2015 tetanus toxoid, redu louise diphtheria toxoid, and acellular pertussis vaccine, adsorbed Christopher Bajanna Work Phone: [place] [address] DO Work Phone: 02-26-2009 novel [id number], preservative-free, injectable Christopher Bajanna Work Phone: [place] [address] DO Work Phone: NEGATED: Highlighted row has not occurred!02-27-2023 influenza virus vaccine, unspecified formulation Lindajahaira MeltonOsmin [facility] NEGATED: Highlighted row has not occurred!12-18-2022 influenza virus vaccine, unspecified formulation Catrachito Belfast [facility] Payers Date Payer Category Payer Self-pay [id number] 2022 Unknown [id number] 2018 Unknown 2018 Unknown [id number] 2014 Medicare [id number] 2014 Medicare MEDICARE MEDICAR E PART A AND B [id number] 2014-Present [address] [place] [address] [id number]. [id number] 1949 Unknown [id number] 2.16.840.1.137559.3.579.2.356 1949 Unknown [id number] 2.16.840.1.054629.3.579.2.356 1949 Unknown [id number] 2.16.840.1.696281.3.579.2.356 1949 Unknown [id number] 2.16.840.1.766901.3.579.2.1068 1949 Unknown [id number] 2.16.840.1.453396.3.579.2.1244 1949 Unknown [id number] 2.16.840.1.805416.3.579.2.1259 1949 Unknown [id number] 2.16.840.1.586052.3.579.2.1259 1949 Unknown [id number] 2.16.840.1.384795.3.579.2.727 1949 Unknown [id number] 2.16.840.1.496048.3.579.2.727 1949 Unknown [id number] 2.16.840.1.661676.3.579.2.727 1949 Unknown [id number] 2.16.840.1.433886.3.579.2 1949 Unknown [id number] 2.16.840.1.939877.3.579.2 1949 Unknown [id number] 2.16.840.1.165866.3.579.2 1949 Unknown [id number] 2.16.840.1.616240.3.579.2 1949 Unknown [id number] 2.16.840.1.895255.3.579. 1949 Unknown [id number] 2.16.840.1.781680.3.579. 1949 Unknown [id number] 2.16.840.1.053616.3.579. 1949 Unknown [id number] 2.16.840.1.193409.3.579. 1949 Unknown [id number] 2.16.840.1.095367.3.579. 1949 Unknown [id number] 2.16.840.1.602972.3.579.2 1949 Unknown [id number] 2.16.840.1.303489.3.579.2 1949 Unknown [id number] 2.16.840.1.742280.3.579.2 1949 Unknown [id number] 2.16.840.1.373404.3.579.2 1949 Unknown [id number] 2.16.840.1.447879.3.579.2 1949 Unknown [id number] 2.16.840.1.485307.3.579.2 1949 Unknown [id number] 2.16.840.1.067700.3.579.2 1949 Unknown [id number] 2.16.840.1.497257.3.579.2 1949 Unknown [id number] 2.16.840.1.215624.3.579.2 1949 Unknown [id number] 2.16.840.1.877565.3.579.2 1949 Unknown [id number] 2.16.840.1.268675.3.579.2 1949 Unknown [id number] 2.16.840.1.141935.3.579.2 1949 Unknown [id number] 2.16.840.1.052608.3.579.2 1949 Unknown [id number] 2.16.840.1.666437.3.579.2 1949 Unknown [id number] 2.16.840.1.415838.3.579.2 1949 Unknown [id number] 2.16.840.1.811946.3.579.2 1949 Unknown [id number] 2.16.840.1.508789.3.579.2 1949 Unknown [id number] 2.16.840.1.965459.3.579.2 1949 Unknown [id number] 2.16.840.1.919442.3.579.2.72 Unknown [id number] 2.16.840.1.255153.3.579.2.531 Unknown [id number] 2.16.840.1.036315.3.579.2.531 Unknown [id number] 2.16.840.1.084952.3.579.2.531 Unknown [id number] 2.16.840.1.288474.3.579.2.531 Unknown [id number] 2.16.840.1.762105.3.579.2.531 Social History Date Type Detail Facility Start: 02-12-2023 Never a smoker Never a smoker -Nor [facility] 250 DO Work Phone: Start: 12-10-2020 End: 03-20-2023 Tobacco smoking status Never smoked tobacco (finding) [facility] Comment on above: denies use Tobacco smoking status Never [facility] Comment on above: denies use Start: 02-12-2023 Sex Assigned At Female F [facility] Start: 1950 Sex Assigned At Female F [facility] Start: 02-12-2023 Tobacco use and exposure Smokeless tobacco non-user [facility] Work Phone: Start: 02-12-2023 Alcohol intake Current drinke r of alcohol (finding) [facility] Work Phone: Start: 02-12-2023 Alcohol Comment social [facility] Work Phone: Start: 1950 Sex Assigned At Not on file [facility] Work Phone: Start: 02-02-2023 End: 02-12-2023 Exposure to SARS-CoV-2 (event) Not sure [facility] Medical Equipment Procedure Code Equipment Code Equipment [...] 11, Dx: E11.9 Directions: BID, [id number], Supply, 165, cm, 06/11/22 9:10:00 EDT, Height/Length Dosing, 97.6, kg, 06/11/22 9:10:00 EDT, Weight Dosing Start: 06-13-2022 Lancets, See Instructions, 100 EA, 11, Dx: E11.9 Directions: BID, [facility], Supply, 166, cm, 05/10/21 8:27:00 EST, Height/Length Dosing, 92.8, kg, 05/10/21 8:27:00 EST, Weight Dosing Start: 05-10-2021 Test strips, See Instructions, 100 EA, 11, Dx: E11.9 Directions: BID, [facility] #[id number], Supply, 165, cm, 06/11/22 9:10:00 EDT, Height/Length Dosing, 97.6, kg, 06/11/22 9:10:00 EDT, Weight Dosing Start: 06-13-2022 CL CLOSURE DEVIC E EXOSEAL 6F FDA Start: 08-11-2018 CL STENT JIE 2.5 X 08 FDA Start: 08-11-2018 Multiple periphe ral artery stent, bare-metal [id number] FDA Start: 04-07-2022 Lancets, See Instructions, 100 EA, 11, Dx: E11.9 Directions: BID, [facility], Supply, 166, cm, 05/10/21 8:27:00 EST, Height/Length Dosing, 92.8, kg, 05/10/21 8:27:00 EST, Weight Dosing Start: 05-10-2021 Test strips, See Instructions, 100 EA, 11, Dx: E11.9 Directions: BID, [facility] #[id number], Supply, 165, cm, 06/11/22 9:10:00 EDT, Height/Length Dosing, 97.6, kg, 06/11/22 9:10:00 EDT, Weight Dosing Start: 06-13-2022 Lancets, See Instructions, 100 EA, 11, Dx: E11.9 Directions: BID, [facility], Supply, 166, cm, 05/10/21 8:27:00 EST, Height/Length Dosing, 92.8, kg, 05/10/21 8:27:00 EST, Weight Dosing Start: 05-10-2021 Test strips, See Instructions, 100 EA, 11, Dx: E11.9 Directions: BID, [facility] #[id number], Supply, 165, cm, 06/11/22 9:10:00 EDT, Height/Length Dosing, 97.6, kg, 06/11/22 9:10:00 EDT, Weight Dosing Start: 06-13-2022 Lancets, See Instructions, 100 EA, 11, Dx: E11.9 Directions: BID, [facility], Supply, 166, cm, 05/10/21 8:27:00 EST, Height/Length Dosing, 92.8, kg, 05/10/21 8:27:00 EST, Weight Dosing Start: 05-10-2021 Test strips, See Instructions, 100 EA, 11, Dx: E11.9 Directions: BID, [facility] #[id number], Supply, 165, cm, 06/11/22 9:10:00 EDT, Height/Length Dosing, 97.6, kg, 06/11/22 9:10:00 EDT, Weight Dosing Start: 06-13-2022 Lancets, See Instructions, 100 EA, 11, Dx: E11.9 Directions: BID, [facility], Supply, 166, cm, 05/10/21 8:27:00 EST, Height/Length Dosing, 92.8, kg, 05/10/21 8:27:00 EST, Weight Dosing Start: 05-10-2021 Test strips, See Instructions, 100 EA, 11, Dx: E11.9 Directions: BID, [facility] #[id number], Supply, 165, cm, 06/11/22 9:10:00 EDT, Height/Length Dosing, 97.6, kg, 06/11/22 9:10:00 EDT, Weight Dosing Start: 06-13-2022 Lancets, See Instructions, 100 EA, 11, Dx: E11.9 Directions: BID, [facility], Supply, 166, cm, 05/10/21 8:27:00 EST, Height/Length Dosing, 92.8, kg, 05/10/21 8:27:00 EST, Weight Dosing Start: 05-10-2021 Test strips, See Instructions, 100 EA, 11, Dx: E11.9 Directions: BID, [facility] #[id number], Supply, 165, cm, 06/11/22 9:10:00 EDT, Height/Length Dosing, 97.6, kg, 06/11/22 9:10:00 EDT, Weight Dosing Start: 06-13-2022 Lancets, See Instructions, 100 EA, 11, Dx: E11.9 Directions: BID, [facility], Supply, 166, cm, 05/10/21 8:27:00 EST, Height/Length Dosing, 92.8, kg, 05/10/21 8:27:00 EST, Weight Dosing Start: 05-10-2021 Test strips, See Instructions, 100 EA, 11, Dx: E11.9 Directions: BID, [facility] #[id number], Supply, 165, cm, 06/11/22 9:10:00 EDT, Height/Length Dosing, 97.6, kg, 06/11/22 9:10:00 EDT, Weight Dosing Start: 06-13-2022 Lancets, See Instructions, 100 EA, 11, Dx: E11.9 Directions: BID, [facility], Supply, 166, cm, 05/10/21 8:27:00 EST, Height/Length Dosing, 92.8, kg, 05/10/21 8:27:00 EST, Weight Dosing Start: 05-10-2021 Test strips, See Instructions, 100 EA, 11, Dx: E11.9 Directions: BID, [facility] #[id number], Supply, 165, cm, 06/11/22 9:10:00 EDT, Height/Length Dosing, 97.6, kg, 06/11/22 9:10:00 EDT, Weight Dosing Start: 06-13-2022 Lancets, See Instructions, 100 EA, 11, Dx: E11.9 Directions: BID, [facility], Supply, 166, cm, 05/10/21 8:27:00 EST, Height/Length Dosing, 92.8, kg, 05/10/21 8:27:00 EST, Weight Dosing Start: 05-10-2021 Test strips, See Instructions, 100 EA, 11, Dx: E11.9 Directions: BID, [facility] #[id number], Supply, 165, cm, 06/11/22 9:10:00 EDT, Height/Length Dosing, 97.6, kg, 06/11/22 9:10:00 EDT, Weight Dosing Start: 06-13-2022 Lancets, See Instructions, 100 EA, 11, Dx: E11.9 Directions: BID, [facility], Supply, 166, cm, 05/10/21 8:27:00 EST, Height/Length Dosing, 92.8, kg, 05/10/21 8:27:00 EST, Weight Dosing Start: 05-10-2021 Test strips, See Instructions, 100 EA, 11, Dx: E11.9 Directions: BID, [facility] #[id number], Supply, 165, cm, 06/11/22 9:10:00 EDT, Height/Length Dosing, 97.6, kg, 06/11/22 9:10:00 EDT, Weight Dosing Start: 06-13-2022 Lancets, See Instructions, 100 EA, 11, Dx: E11.9 Directions: BID, [facility], Supply, 166, cm, 05/10/21 8:27:00 EST, Height/Length Dosing, 92.8, kg, 05/10/21 8:27:00 EST, Weight Dosing Start: 05-10-2021 Test strips, See Instructions, 100 EA, 11, Dx: E11.9 Directions: BID, [facility] #[id number], Supply, 165, cm, 06/11/22 9:10:00 EDT, Height/Length Dosing, 97.6, kg, 06/11/22 9:10:00 EDT, Weight Dosing Start: 06-13-2022 Lancets, See Instructions, 100 EA, 11, Dx: E11.9 Directions: BID, [facility], Supply, 166, cm, 05/10/21 8:27:00 EST, Height/Length Dosing, 92.8, kg, 05/10/21 8:27:00 EST, Weight Dosing Start: 05-10-2021 Test strips, See Instructions, 100 EA, 11, Dx: E11.9 Directions: BID, [facility] #[id number], Supply, 165, cm, 06/11/22 9:10:00 EDT, Height/Length [...] 11, Dx: E11.9 Directions: BID, [facility] #[id number], Supply, 165, cm, 06/11/22 9:10:00 EDT, Height/Length Dosing, 97.6, kg, 06/11/22 9:10:00 EDT, Weight Dosing Start: 06-13-2022 Lancets, See Instructions, 100 EA, 11, Dx: E11.9 Directions: BID, [facility], Supply, 166, cm, 05/10/21 8:27:00 EST, Height/Length Dosing, 92.8, kg, 05/10/21 8:27:00 EST, Weight Dosing Start: 05-10-2021 Test strips, See Instructions, 100 EA, 11, Dx: E11.9 Directions: BID, [facility] #[id number], Supply, 165, cm, 06/11/22 9:10:00 EDT, Height/Length Dosing, 97.6, kg, 06/11/22 9:10:00 EDT, Weight Dosing Start: 06-13-2022 Lancets, See Instructions, 100 EA, 11, Dx: E11.9 Directions: BID, [facility], Supply, 166, cm, 05/10/21 8:27:00 EST, Height/Length Dosing, 92.8, kg, 05/10/21 8:27:00 EST, Weight Dosing Start: 05-10-2021 Test strips, See Instructions, 100 EA, 11, Dx: E11.9 Directions: BID, [facility] #[id number], Supply, 165, cm, 06/11/22 9:10:00 EDT, Height/Length Dosing, 97.6, kg, 06/11/22 9:10:00 EDT, Weight Dosing Start: 06-13-2022 Lancets, See Instructions, 100 EA, 11, Dx: E11.9 Directions: BID, [facility], Supply, 166, cm, 05/10/21 8:27:00 EST, Height/Length Dosing, 92.8, kg, 05/10/21 8:27:00 EST, Weight Dosing Start: 05-10-2021 Test strips, See Instructions, 100 EA, 11, Dx: E11.9 Directions: BID, [facility] #[id number], Supply, 165, cm, 06/11/22 9:10:00 EDT, Height/Length Dosing, 97.6, kg, 06/11/22 9:10:00 EDT, Weight Dosing Start: 06-13-2022 Lancets, See Instructions, 100 EA, 11, Dx: E11.9 Directions: BID, [facility], Supply, 166, cm, 05/10/21 8:27:00 EST, Height/Length Dosing, 92.8, kg, 05/10/21 8:27:00 EST, Weight Dosing Start: 05-10-2021 Test strips, See Instructions, 100 EA, 11, Dx: E11.9 Directions: BID, [facility] #[id number], Supply, 165, cm, 06/11/22 9:10:00 EDT, Height/Length Dosing, 97.6, kg, 06/11/22 9:10:00 EDT, Weight Dosing Start: 06-13-2022 Functional Status Date Assessment Result Facility 04-10-2023 Functional Status N/A [facility] 03-20-2023 Functional Status N/A [facility] 03-04-2023 Functional Status N/A [facility] 02-16-2023 Functional Status N/A [facility] 01-26-2023 Functional Status N/A [facility] 01-06-2023 Functional Status N/A [facility] 09-10-2022 Functional Status N/A [facility] 06-11-2022 Functional Status N/A [facility] 04-07-2022 Functional status Patient at Baseline [facility] Work Phone: 11-28-2021 N/A [facility] 10-28-[address] [facility] Mental Status Date Assessment Result Facility 04-07-2022 Cognitive function Cognitive Sta tus Patient at Baseline [facility] Work Phone: Clinical Notes 01-27-2022 to 04-10-2023 Note Date & Type Note Facility 04-10-2023 Evaluation + Plan note Extrac beatriz from: Title:ED Note Author:Erick BARTH, Radhames Crystal te:04/10/23 Bronchitis (J40: Bronchitis, not specified as acute or chronic) Orders: albuterol, 2 puff(s), Inhalation, q6hr Wheezing, 8.5 gm, Refill(s) 0, [facility] #[id number], 165, cm, 04/10/23 9:26:00 EST, Height/Length Dosing, 96.9, kg, 04/10/23 9:26:00 EST, Weight Dosing azithromycin, = 1 packet(s), Oral, As Directed, as directed on package labeling, X 5 day(s), # 6 tab(s), Refills(s) 0, Pharmacy: [facility] #[id number], 165, cm, 04/10/23 9:26:00 EST, Height/Length Dosing, 96.9, kg, 04/10/23 9:26:00 EST, Weight Dosing predniSONE, 60 mg = 3 tab(s), Oral, Daily, X 7 day(s), # 21 tab(s), Refills(s) 0, Pharmacy: [facility] #[id number], 165, cm, 04/10/23 9:26:00 EST, Height/Length Dosing, 96.9, kg, 04/10/23 9:26:00 EST, Weight Dosing XR Chest 2 Views Future Appointments Appointment Date:07/28/2023 08:00:00 AM Scheduled Provider:Christopher WELLS DO, FAAFP Location:[facility] [employer] Appointment Type: Open Appointment Date:02/01/2024 08:00:00 AM Scheduled Provider: Location:[facility] Appointment Type: Medicare Wellness Subsequent Future Scheduled Tests Laboratory* HgbA1c 03/27/22 * HgbA1c 06/25/22 * HCV Antibody RFX to Quant PCR 01/26/23 [facility]01-26-2024 Hospital Discharge instructions Patient Education 04/10/2023 [...] condition. Follow these instructions at home: Take vwjf-fvl-iqumttw and prescription medicines only as told by [...] and water are not available, use hand supervisory it specialist. Avoid contact with people who have cold [...] it is easier to cough up. Take mxtx-kgy-fsyfaaw and prescription medicines only as told by [...] provider. Document Revised: 06/12/2022 Document Reviewed: 07/03/2021 [employer] Patient Education 2022 [employer]. Follow Up Care 04/10/2023 09:14:32 With:Christopher WELLS Address: [address], [place] [address]- [facility] (1) When:04/13/2023 11:17:35 [facility]01-05-2024 Hospital Discharge instructions Patient Education 03/20/2023 [...] plan? Your health care provider or certified appliance service technician can help you make a plan [...] (heat stroke). Where to find more information [employer] [place] [employer]: www.diabetes.org Summary Exercising regularly is important for overall health, especially for people who have diabetes mellitus. Exercising has many health benefits. It increases muscle strength and bone density and reduces bodyfat and stress. It also lowers and controls blood glucose. Your health care provider or certified appliance service technician can help you make an activity [...] provider. Document Revised: 11/28/2019 Document Reviewed: 11/28/2019 [employer] Patient Education 2022 [employer]. Follow Up Care 12/18/2022 08:59:12 With:Christopher WELLS DO, FAAFP, FAM, PED Address: [place] [address]- When:Within 4 Month(s) [facility] 12-20-2023 Evaluation + Plan noteExtracted [...] AM Scheduled Provider:Christopher WELLS DO, FAAFP Location:[facility] Appointment Type:FM Open Appointment Date:03/23/2023 08:30:00 AM Scheduled Provider:Mara Pastor PA-C Location:[facility] Appointment Type:Pain Management - Follow Up (FT) Appointment Date:02/01/2024 08:00:00 AM Scheduled Provider: Location:[facility] Appointment Type: Medicare Wellness Subsequent Future Scheduled Tests Laboratory* HgbA1c 03/27/22 * HgbA1c 06/25/22 * HCV Antibody RFX to Quant PCR 01/26/23 [facility]12-20-2023 Note [id number] NoteDiagnosis: M16.12, left hip pain/osteoarthritis [...] procedure, and agrees to continue currently prescribed/recommended therapies.[facility] Comment on above:Result Comment: Electronically Signed By: Nicola Tapia DO.maria teresa\Date and Time Signed: 03/04/23 09:06 [id number] Evaluation note* Encounter Date Diagnosis Assessment Notes [...] sooner should she deteriorate in any way [employer] Other [id number] History of Present illness Narrative* Fariha Guidry [...] I suggested that she discuss with her color laboratory technician the addition of [id number] or GLP agonists. Reviewed with the patient [...] complications. 5. Diabetes, managed by endocrinology in [place]. A1c remains above target, advised patient to discuss with the color laboratory technician more aggressive therapy. 6. Hypertension completely under control. 7. High-risk medication with Xarelto, so far well-tolerated. Takes baby aspirin twice weekly 8. Stage III chronic kidney disease to be monitored closely, she follow with nephrology 9. intermittent claudications and PAD followed by vascular surgery in [place]. Patient is scheduled next week to have revascularization for intermittent claudication 10. Sleep apnea not consistently using CPAP machine. Encouraged the patient to utilize it daily. Fariha Guidry MD, [facility] Review of Systems All other systems [...] tablet, Rfl: 3 Assessment/Plan 1. 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 Follow Up In Cardiology atorvastatin (Lipitor) 40 mg tablet Alanine Aminotransferase Aspartate Aminotransferase Lipid Panel 2. Status post coronary angioplasty Follow Up In Cardiology 3. Essential hypertension Follow Up In Cardiology 4. Hyperlipidemia, unspecified hyperlipidemia type atorvastatin (Lipitor) 40 mg tablet Alanine Aminotransferase Aspartate Aminotransferase Lipid Panel 5. PVD (peripheral vascular disease) ([facility]) 6. Stage 3 chronic kidney disease, unspecified whether stage 3a or 3b CKD ([facility]) 7. Sleep apnea, unspecified [facility] [phone]) 383-416911-30-2023 Instructions* Patient Instructions* Saloni Benavides LPN - [...] Follow up 6 [facility] [phone]) 205-218511-13-2023 Hospital Discharge instructions Patient Education 01/26/2023 09:01:27 [...] Carrots. Green beans. Tomatoes. Peppers. Onions. Cucumbers. Outlook sprouts. Grains Whole grains, such as whole-wheat [...] meet with a certified diabetes care and business education professor? Do I need to meet with a dietitian? What number can I call if I have questions? When are the best times to check my blood glucose? Where to find more information: [place] Diabetes Association: diabetes.org Academy of Nutrition and Dietetics: eatright.org National [place] of Diabetes and Digestive and Kidney Diseases: [...] provider. Document Revised: 10/03/2020 Document Reviewed: 10/03/2020 [employer] Patient Education 2022 LitRes. 01/26/2023 09:01:11 Fall Prevention in the Home, Adult, Yudh-zo-Vdgz Fall Prevention in the Home, Adult Falls [...] Keep items that you use often in lesu-hy-qidni places. Lower the shelves around your home [...] of the way. Do not use floor kittitian or wax that makes floors slippery. What [...] for Disease Control and PreventionKELLEY: www.cdc.gov National [place] on Aging: www.[place].nih.gov Contact a doctor if: [...] provider. Document Revised: 12/02/2021 Document Reviewed: 10/03/2020 [employer] Patient Education 2022 LitRes. 01/26/2023 09:01:04 Hepatitis C, Ahxz-we-Xrgo Hepatitis C Hepatitis C is a liver [...] organ donations that were done in the [facility] before 1991. What increases the risk? Having [...] Follow these instructions at home: Medicines Take vvxn-eni-gwhzhov and prescription medicines only as told by your doctor. If you were given an antiviral medicine, take it as told by your doctor. Do not stop using the antiviral even if you start to feel better. Do not take any new medicines unless your doctor says that this is okay. This includes zdff-zzd-xvmoivn medicines and supplements. Activity Rest as needed. [...] not have soap and water, use hand supervisory it specialist. Cover any cuts or open sores on [...] provider. Document Revised: 01/17/2021 Document Reviewed: 01/17/2021 [employer] Patient Education 2022 LitRes. 01/26/2023 09:00:41 Exercising to Lose Weight Exercising [...] your health care provider or diet and dairy nutrition consultant (dietitian). This may include: ?Eating fewer calories. [...] provider. Document Revised: 04/28/2021 Document Reviewed: 04/28/2021 [employer]LBR Patient Education 2022 LitRes. 01/26/2023 09:00:38 Cooking With Less Salt Cooking [...] salt. Use sodium-free baking soda when baking. [place], braise, or roast foods to add flavor with less salt. Avoid adding salt to pasta, rice, or hot cereals. Drain and rinse canned vegetables, beans, and meat before use. Avoid adding salt when cooking sweets and desserts. Cook with low-sodium ingredients. What foods are high in sodium? Vegetables Regular canned vegetables (not low-sodium or reduced-sodium). Sauerkraut, pickled vegetables, and relishes. Olives. Northern Irish fries. Onion rings. Regular canned tomato sauce [...] Soy milk. Yogurt. Low-sodium cheeses, such as Citizen Of [place], [place] Teodoro, mozzarella, and ricotta. Sherbet or ice [...] foods you can pair it with. Herbs Thayer leaves Soups, meat and vegetable dishes, and spaghetti sauce. Basil Comoran dishes, soups, pasta, and fish dishes. Cilantro Meat, poultry, and vegetable dishes. [place] powder Marinades and Indian dishes. Chives Salad dressings and potato dishes. Cumin Indian dishes, couscous, and meat dishes. Dill Fish dishes, sauces, and salads. Fennel Meat and vegetable dishes, breads, and cookies. Garlic (do not use garlic salt) Com[place]an dishes, meat dishes, salad dressings, and sauces. Marjoram Soups, potato dishes, and meat dishes. Oregano Pizza and spaghetti sauce. Parsley Salads, soups, pasta, and meat dishes. Vanita Comoran dishes, salad dressings, soups, and red meats. [...] Cloves Gingerbread, puddings, and marinades for meats. Lua Vegetable dishes, fish and poultry dishes, and [...] provider. Document Revised: 02/22/2020 Document Reviewed: 02/22/2020 [employer]/LBR Patient Education 2022 LitRes. 01/26/2023 09:00:36 BMI for Adults BMI for [...] numbers. This can be done either in [place] ([place] or metric measurements. Note that charts and online BMI calculators are available to help you find your BMI quickly and easily without having to do these calculations yourself. To calculate your BMI in [place] (U.S[place] measurements: 1.Measure your weight in pounds [...] Centers for Disease Control and Prevention: www.cdc.gov [place] Heart Association: www.heart.org National Heart, Lung, and Blood [place]: www.nhlbi.nih.gov Summary Body mass index (BMI) is a number that is calculated from a person's weight and height. BMI may help estimate how much of a person's weight is composed of fat. BMI can help identify thosewho may be at higher risk for certain medical problems. BMI can be measured using [place] measurements or metric measurements. BMI charts are used to identify whether you are underweight, normal weight, overweight, or obese. This information is not intended to replace advice given to you by your health care provider. Make sure you discuss any questions you have with your health care provider. Document Revised: 11/23/2019 Document Reviewed: 09/30/2019 [employer]/LBR Patient Education 2022 LitRes. [facility] 10-24-2023 Evaluation + Plan noteExtracted [...] 08:00:00 AM Scheduled Provider: Location:[facility] Appointment Type: Medicare Wellness Subsequent Appointment Date:03/12/2023 08:00:00 AM Scheduled Provider:Linda Solorio CNP Location:[facility] Appointment Type:BADH Follow Up Appointment Date:03/20/2023 09:00:00 AM Scheduled Provider:Christopher WELLS DO, FAAFP Location:[facility] Appointment Type: Open [facility] Scheduled Tests Laboratory* HgbA1c 03/27/22 * HgbA1c 06/25/22 [facility] Evaluation note* Encounter Date Diagnosis Assessment [...] understands and is agreement with that plan. [employer] Other 10-11-2023 NoteMicrobiology PROCEDURE: Wound Culture [R1] [...] Locations R1: This test was performed at: [facility], [address] [place] [address], [id number] , , QbxlrpChildren[facility] ColumbusComment on above:Performed By: #### [id number] #### [facility] [address] [place] [address] [id number] Evaluation note* Encounter Date Diagnosis Assessment Notes [...] to see her back in 2 months. [employer] Other 08-21-2023 Evaluation note* Encounter Date Diagnosis [...] call us with any issues or concerns. [employer] Other 06-28-2023 Hospital Discharge instructions Patient Education [...] oral rehydration solution (ORS). This is an doql-vjb-lfspkhw medicine that helps return your body to [...] drinks, sports drinks, and soda. Eat bland, mnyo-qp-mugkmj foods in small amounts as you are able. These foods include bananas, applesauce, rice, lean meats, toast, and crackers. Avoid alcohol. Avoid spicy or fatty foods. Medicines Take xyqu-gqv-vzswgfa and prescription medicines only as told by your health care provider. If you were prescribed an antibiotic medicine, take it as told by your health care provider. Do notstop using the antibiotic even if you start to feel better. General instructions Wash your hands often using soap and water. If soap and water are not available, use a hand supervisory it specialist. Others in the household should wash their [...] soap and water are not available, usehand supervisory it specialist. Contact a health care provider if your diarrhea gets worse or you have new symptoms. Get help right away if you have signs of dehydration. This information is not intended to replace advice given to you by your health care provider. Make sure you discuss any questions you have with your health care provider. Document Revised: 09/11/2021 Document Reviewed: 09/11/2021 [employer]/LBR Patient Education 2022 LitRes. 09/10/2022 07:52:51 High-Fiber Eating Plan High-Fiber Eating [...] Bulgur wheat. Millet. Quinoa. Bran muffins. Popcorn. [place] wafer crackers. Meats and other proteins Capitanejo beans, kidney beans, and chase beans. Soybeans. [...] Cream cheese. Sour cream. Fats and oils [place]. Beverages Soft drinks. Other foods Cakes and [...] provider. Document Revised: 07/05/2020 Document Reviewed: 07/05/2020 [employer]/LBR Patient Education 2022 LitRes. Follow Up Care 06/11/2022 09:32:08 With:Linda Solorio CNP Address: When:6 months [facility] 03-29-2023 Hospital Discharge instructions Patient [...] per serving. Talk with a diet and dairy nutrition consultant (dietitian) if you have questions about specific [...] Bulgur wheat. Millet. Quinoa. Bran muffins. Popcorn. [place] wafer crackers. Meats and other proteins [place]jo, kidney, and chase beans. Soybeans. Split peas. [...] Cream cheese. Sour cream. Fats and oils [place]. Beverages Soft drinks. Other foods Cakes and [...] 03/02/2006 Document Revised: 01/04/2018 Document Reviewed: 01/04/2018 [employer]ín[employer]/LBR Patient Education 2020 LitRes. 06/11/2022 09:15:20 Hemorrhoids Hemorrhoids Hemorrhoids are swollen [...] 3 times a day. General instructions Take qyuc-mmp-njfdmya and prescription medicines only as told by [...] 02/27/2001 Document Revised: 07/29/2019 Document Reviewed: 07/22/2018 [employer]LBR Patient Education 2020 [employer] 06/11/2022 09:15:19 Colon Polyps Colon Polyps [...] 11/26/2004 Document Revised: 06/17/2018 Document Reviewed: 06/17/2018 L[employer]ínios [employer]/LBR Patient Education [employer] Follow Up Care 06/09/2022 16:22:13 With:Linda Solorio CNP Address: When:3 months [facility] [id number] Note [id number]:[id number]-05-[facility]22 Evaluation note* Encounter Date Diagnosis Assessment Notes Treatment Notes Treatment Clinical Notes Apr, Peripheral vascular disease, unspecified (ICD-10 - I73.9) Apr, Other specified postprocedural states (ICD-10 - Z98.890) Apr, Other Peripheral arterial occlusive disease She has a good clinical outcome. I will see her back in 6 months with ABIs on that day. She will continue her current medical regimen. [employer] Other 01-24-2023 Evaluation note* Encounter Date Diagnosis Assessment Notes Treatment Notes Treatment Clinical Notes Mar, Post-op pain (ICD-10 - G89.18) [employer] Other 01-16-2023 Evaluation + Plan note Diagnostic Tests Pending * PTH Intact 03/31/22 * Immunofixation Serum 03/31/22 * Immunofixation, Urine 03/31/22 * C3 Complement 03/31/22 * C4 Complement 03/31/22 * Free K+L Lt Chains,Qn,S 03/31/22 Future Scheduled Tests Laboratory* HgbA1c 03/27/22 * HgbA1c 06/25/22 [facility]01-16-2023 Evaluation note* Encounter Date Diagnosis Assessment [...] of both lower extremities (ICD-10 - I73.9) [employer] Other 01-12-2023 Evaluation + Plan note Future Scheduled Tests Laboratory* HgbA1c 03/27/22 * HgbA1c 06/25/22 [facility]11-14-2022 Evaluation note* Encounter Date Diagnosis Assessment [...] in 2 months time with the ABIs. [employer] Other Evaluation + Plan note Future Appointments Appointment Date:08/27/2021 09:30:00 AM Scheduled Provider: Location:.DIETARY Appointment Type:DM Diabetes Initial parachute accessories attacher 59 (F Appointment Date:10/16/2021 01:00:00 PM Scheduled Provider: [facility] Diabetes [facility] () [facility] Evaluation + Plan note Future Appointments Appointment Date:10/15/2021 09:00:00 AM Scheduled Provider: Location:.DIETARY Appointment Type:DM Diabetes Group () Appointment Date:10/28/2021 09:45:00 AM Scheduled Provider:Charis Daniel MD Location[facility] Appointment Type:Vascular New Patient () Appointment Date:12/16/2021 09:40:00 AM Scheduled Provider:Christopher WELLS DO, FAAFP Location:[facility] Appointment Type: Open Future Scheduled Tests Laboratory* HgbA1c 12/25/21 * HgbA1c 03/27/22 * HgbA1c 06/25/22 Radiology* US PVR Lower EXT Complete Bilat 09/24/21 [facility] Future Appointments Appointment Date:10/15/2021 09:00:00 AM Scheduled Provider: [facility] Type:DM Diabetes Group (FT) Appointment Date:10/28/2021 09:45:00 AM Scheduled Provider:Charis Daniel MD Location[facility] Appointment Type:Vascular New Patient (FT) Appointment Date:12/16/2021 09:40:00 AM Scheduled Provider:Christopher WELLS DO, FAAFP Location:[facility] Appointment Type:FM Open Future Scheduled Tests Laboratory* HgbA1c 12/25/21 * HgbA1c 03/27/22 * HgbA1c 06/25/22 [facility] Future Appointments Appointment Date:12/16/2021 09:40:00 AM Scheduled Provider:Christopher WELLS DO, FAAFP Location:[facility] Appointment Type:FM Open Appointment Date:01/02/2022 01:00:00 PM Scheduled Provider: [facility] Type:DM Diabetes Group (FT) Future Scheduled Tests Laboratory* HgbA1c 12/25/21 * HgbA1c 03/27/22 * HgbA1c 06/25/22 Radiology* US LE Venous Duplex Insufficiency Bilat 10/28/21 * CTA Abd Aorto-bilat/ iliofemoral runoff 10/28/21 [facility] Future Appointments Appointment Date:12/16/2021 09:40:00 AM Scheduled Provider:Christopher WELLS DO, FAAFP Location:[facility] Appointment Type:FM Open Appointment Date:01/02/2022 01:00:00 PM Scheduled Provider: [facility] Type:DM Diabetes Group (FT) Appointment Date:02/24/2022 09:00:00 AM Scheduled Provider:Charis Daniel MD Location[facility] Appointment Type:Vascular Follow Up (FT) Future Scheduled Tests Laboratory* HgbA1c 12/25/21 * HgbA1c 03/27/22 * HgbA1c 06/25/22 [facility] Future Appointments Appointment Date:02/24/2022 09:00:00 AM Scheduled Provider:Charis Daniel MD Location[facility] Appointment Type:Vascular Follow Up (FT) Future Scheduled Tests Laboratory* HgbA1c 12/25/21 * HgbA1c 03/27/22 * HgbA1c 06/25/22 [facility] Future Appointments Appointment Date:02/24/2022 09:00:00 AM Scheduled Provider:Charis Daniel MD [facility] Type:Vascular Follow Up (FT) Future Scheduled Tests Laboratory* HgbA1c 03/27/22 * HgbA1c 06/25/22 [facility] Future Appointments Appointment Date:05/21/2022 01:05:00 PM Scheduled Provider: Location:[facility] Appointment Type:Surgery FT Diagnostic Tests Pending * O & P Exam, Routine 05/08/22 * Giardia lamblia, Direct Detection EIA 05/08/22 Future Scheduled Tests Laboratory* HgbA1c 03/27/22 * HgbA1c 06/25/22 [facility] Future Appointments Appointment Date:09/10/2022 08:00:00 AM Scheduled Provider:Linda Solorio CNP Location:[facility] Appointment Type:BAD Follow Up Future Scheduled Tests Laboratory* HgbA1c 03/27/22 * HgbA1c 06/25/22 [facility] Evaluation + Plan note Future Appointments Appointment Date:03/12/2023 08:00:00 AM Scheduled Provider:Linda Solorio CNP Location:[facility] Appointment Type:BAD Follow Up Future Scheduled Tests Laboratory* HgbA1c 03/27/22 * HgbA1c 06/25/22 [facility] Evaluation + Plan note Future Appointments Appointment Date:12/18/2022 08:20:00 AM Scheduled Provider:Christopher WELLS DO, FAAFP Location:[facility] [employer] Appointment Type: Open Appointment Date:01/26/2023 08:00:00 AM Scheduled Provider: Location:[facility] Appointment Type: Medicare Wellness Subsequent Appointment Date:03/12/2023 08:00:00 AM Scheduled Provider:Linda Solorio CNP Location:[facility] Appointment Type:BAD Follow Up Future Scheduled Tests Laboratory* HgbA1c 03/27/22 * HgbA1c 06/25/22 [facility] Future Appointments Appointment Date:01/06/2023 08:30:00 AM Scheduled Provider:[facility] - New (FT) Appointment Date:01/26/2023 08:00:00 AM Scheduled Provider: Location:[facility] Appointment Type: Medicare Wellness Subsequent Appointment Date:03/12/2023 08:00:00 AM Scheduled Provider:Linda Solorio CNP Location:[facility] Appointment Type:BAD Follow Up Appointment Date:03/20/2023 09:00:00 AM Scheduled Provider:Christopher WELLS DO, FAAFP Location:[facility] Appointment Type: Open Future Scheduled Tests Laboratory* HgbA1c 03/27/22 * HgbA1c 06/25/22 [facility] Future Appointments Appointment Date:01/19/2023 09:30:00 AM Scheduled Provider: [facility] Appointment Type:WC Assessment (FT) Appointment Date:01/26/2023 08:00:00 AM Scheduled Provider: Location:[facility] Appointment Type: Medicare Wellness Subsequent Appointment Date:01/27/2023 02:00:00 PM Scheduled Provider:Denton Mares DPM [facility] Appointment Type:WC Follow Up Visit (FT) Appointment Date:02/02/2023 09:45:00 AM Scheduled Provider: Location:[facility] Appointment Type:Surgery FT Appointment Date:02/17/2023 08:45:00 AM Scheduled Provider:Gary Cerda MD Location:[facility] Appointment Type:Pain Management - Follow Up (FT) Appointment Date:03/12/2023 08:00:00 AM Scheduled Provider:Linda Solorio CNP Location:[facility] Appointment Type:BAD Follow Up Appointment Date:03/20/2023 09:00:00 AM Scheduled Provider:Christopher WELLS DO, FAAFP Location:[facility] Appointment Type:FM Open Future Scheduled Tests Laboratory* HgbA1c 03/27/22 * HgbA1c 06/25/22 [facility] Future Appointments Appointment Date:01/26/2023 08:00:00 AM Scheduled Provider: Location:[facility] Appointment Type:FM Medicare Wellness Subsequent Appointment Date:01/27/2023 02:00:00 PM Scheduled Provider:Denton Mares DPM Location[facility] Appointment Type:WC Follow Up Visit (FT) Appointment Date:02/02/2023 09:45:00 AM Scheduled Provider: Location:[facility] Appointment Type:Surgery FT Appointment Date:02/17/2023 08:45:00 AM Scheduled Provider:Gary Cerda MD [facility] App[facility] Type:Pain Management - Follow Up (FT) Appointment Date:03/12/2023 08:00:00 AM Scheduled Provider:Linda Solorio CNP Location:[facility] Appointment Type:BAD Follow Up Appointment Date:03/20/2023 09:00:00 AM Scheduled Provider:Christopher WELLS DO, FAAFP Location:[facility] Appointment Type:FM Open Future Scheduled Tests Laboratory* HgbA1c 03/27/22 * HgbA1c 06/25/22 [facility] Future Appointments Appointment Date:01/27/2023 02:00:00 PM Scheduled Provider:Denton Mares DPM [facility] Appointment Type:WC Follow Up Visit (FT) Appointment Date:02/02/2023 09:45:00 AM Scheduled Provider: Location:[facility] Appointment Type:Surgery FT Appointment Date:02/17/2023 08:45:00 AM Scheduled Provider:Gary Cerda MD [facility] Appointment Type:Pain Management - Follow Up (FT) Appointment Date:03/12/2023 08:00:00 AM Scheduled Provider:Linda Solorio CNP Location:[facility] Appointment Type:BAD Follow Up Appointment Date:03/20/2023 09:00:00 AM Scheduled Provider:Christopher WELLS DO, FAAFP Location:[facility] Appointment Type:FM Open Appointment Date:02/01/2024 08:00:00 AM Scheduled Provider: Location:[facility] Appointment Type:FM Medicare Wellness Subsequent Future Scheduled Tests Laboratory* HgbA1c 03/27/22 * HgbA1c 06/25/22 * HCV Antibody RFX to Quant PCR 01/26/23 [facility] Evaluation + Plan note Future Appointments Appointment Date:02/02/2023 09:45:00 AM Scheduled Provider: Location[facility] Appointment Type:Surgery FT Appointment Date:02/10/2023 02:30:00 PM Scheduled Provider:Denton Mares DPM [facility] Appoint[facility] Type:WC Follow Up Visit (FT) Appointment Date:02/17/2023 08:45:00 AM Scheduled Provider:Gary Cerda MD Location:[facility] Appointment Type:Pain Management - Follow Up (FT) Appointment Date:03/12/2023 08:00:00 AM Scheduled Provider:Linda Solorio CNP Location:[facility] Appointment Type:BADH Follow Up Appointment Date:03/20/2023 09:00:00 AM Scheduled Provider:Christopher WELLS DO, FAAFP Location:[facility] Appointment Type: Open Appointment Date:02/01/2024 08:00:00 AM Scheduled Provider: Location:[facility] Appointment Type:FM Medicare Wellness Subsequent Future Scheduled Tests Laboratory* HgbA1c 03/27/22 * HgbA1c 06/25/22 * HCV Antibody RFX to Quant PCR [facility] Future Appointments Appointment Date:02/16/2023 01:45:00 PM Scheduled Provider: [facility] Appointment Type:WC Assessment (FT) Appointment Date:02/16/2023 02:15:00 PM Scheduled Provider: Location[facility] Appointment Type:Surgery FT Appointment Date:02/24/2023 02:00:00 PM Scheduled Provider:Denton Mares DPM [facility] Appointment Type:WC Follow Up Visit (FT) Appointment Date:03/02/2023 08:15:00 AM Scheduled Provider:Mara Pastor PA-C Location:[facility] Appointment Type:Pain Management - Follow Up (FT) Appointment Date:03/02/2023 09:40:00 AM Scheduled Provider:Linda Solorio CNP Location:[facility] Appointment Type:BAD Follow Up Appointment Date:03/20/2023 09:00:00 AM Scheduled Provider:Christopher WELLS DO, FAAFP Location:[facility] Appointment Type:FM Open Appointment Date:02/01/2024 08:00:00 AM Scheduled Provider: Location:[facility] Appointment Type:FM Medicare Wellness Subsequent Future Scheduled Tests Laboratory* HgbA1c 03/27/22 * HgbA1c 06/25/22 * HCV Antibody RFX to Quant PCR [facility] Future Appointments Appointment Date:02/24/2023 02:00:00 PM Scheduled Provider:Denton Mares DPM [facility] Appoint[facility] Type:WC Follow Up Visit (FT) Appointment Date:03/02/2023 09:40:00 AM Scheduled Provider:Linda Solorio CNP Location:[facility] Appointment Type:[facility] Follow Up Appointment Date:03/04/2023 08:45:00 AM Scheduled Provider: Location:[facility] Appointment Type:Surgery FT Appointment Date:03/20/2023 09:00:00 AM Scheduled Provider:Christopher WELLS DO, FAAFP Location:[facility] Appointment Type:FM Open Appointment Date:03/23/2023 08:30:00 AM Scheduled Provider:Mara Pastor PA-C Location:[facility] Appointment Type:Pain Management - Follow Up (FT) Appointment Date:02/01/2024 08:00:00 AM Scheduled Provider: Location:[facility] Appointment Type:FM Medicare Wellness Subsequent Future Scheduled Tests Laboratory* HgbA1c 03/27/22 * HgbA1c 06/25/22 * HCV Antibody RFX to Quant PCR [facility] Future Appointments Appointment Date:03/03/2023 02:30:00 PM Scheduled Provider:Denton Mares DPM [facility] Appoint[facility] Type:WC Follow Up Visit (FT) Appointment Date:03/04/2023 08:45:00 AM Scheduled Provider: Location:[facility] Appointment Type:Surgery FT Appointment Date:03/20/2023 09:00:00 AM Scheduled Provider:Christopher WELLS DO, FAAFP Location:[facility] Appointment Type:FM Open Appointment Date:03/23/2023 08:30:00 AM Scheduled Provider:Mara Pastor PA-C [facility] [place] Appointment Type:Pain Management - Follow Up (FT) Appointment Date:02/01/2024 08:00:00 AM Scheduled Provider: Location:[facility] Appointment Type: Medicare Wellness Subsequent Future Scheduled Tests Laboratory* HgbA1c 03/27/22 * HgbA1c 06/25/22 * HCV Antibody RFX to Quant PCR 01/26/23 [facility] Dig[facility]ive [facility] Evaluation + Plan note Future Appointments Appointment Date:03/04/2023 08:45:00 AM Scheduled Provider: Location:[facility] Appointment Type:Surgery FT Appointment Date:03/20/2023 09:00:00 AM Scheduled Provider:Christopher WELLS DO, FAAFP Location:[facility] Appointment Type:FM Open Appointment Date:03/23/2023 08:30:00 AM Scheduled Provider:Mara Pastor PA-C [facility] Appointment Type:Pain Management - Follow Up (FT) Appointment Date:02/01/2024 08:00:00 AM Scheduled Provider: Location:[facility] Appointment Type: Medicare Wellness Subsequent Future Scheduled Tests Laboratory* HgbA1c 03/27/22 * HgbA1c 06/25/22 * HCV Antibody RFX to Quant PCR [facility] App[facility]ments Appointment Date:03/23/2023 08:30:00 AM Scheduled Provider:Mara Pastor PA-C [facility] Appointment Type:Pain Management - Follow Up (FT) Appointment Date:07/28/2023 08:00:00 AM Scheduled Provider:Christopher WELLS DO, FAAFP Location:[facility] Appointment Type:FM Open Appointment Date:02/01/2024 08:00:00 AM Scheduled Provider: Location:[facility] Appointment Type: Medicare Wellness Subsequent Future Scheduled Tests Laboratory* HgbA1c 1/12/23 * HgbA1c 06/25/22 * HCV Antibody RFX to Quant PCR 01/26/23 [facility] Primary Care Evaluation noteNo assessment information available [facility] Work Phone: Evaluation noteNo [address] Other Evaluation note* Diagnosis 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 Status post coronary angioplasty Postsurgical percutaneous transluminal coronary angioplasty status Essential hypertension Unspecified essential hypertension Hyperlipidemia, unspecified hyperlipidemia type PVD (peripheral vascular disease) ([facility]) Unspecified peripheral vascular disease Stage 3 chronic kidney disease, unspecified whether stage 3a or 3b CKD ([facility]) Sleep apnea, unspecified type documented in this encounter [facility] Work Phone: History general Narrative - Reported* [...] stent 3 STENTS Hospitalization History see above [employer] Other [facility] general Narrative - Reported* Type Description Date [...] LEG ANGIOPLASTY 03/2022 Hospitalization History see above [employer] Other Hospital course Narrative No data available for this section [facility] Primary Care Hospital Discharge instructions No data available for this section [facility] Primary Care Progress note No data available for this section 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 Diabetes, managed by endocrinology in [place]. A1c remains above target * 6. Hypertension completely under control. * 7. High-risk medication with Xarelto, so far well-tolerated. Takes baby aspirin twice weekly * 8. Stage III chronic kidney disease to be monitored closely * 9. Recent diagnosis of intermittent claudications and PAD followed by vascular surgery Dr. Fredy Kaplan, she is currently going through walking exercise program * Fariha Guidry MD, [facility] Summary Purpose Family History Relationship Condition [...] Provider Active [employer] Attending Provider Active Academic Support Director Relationship Specialty Start Date End Date Christopher Wells DO [address] [place] [facility]- [address] [place] [address] PCP - General 08/02/18 INFORMATION SOURCE (unrecogn ized section and content) DATE CREATED AUTHOR 01/16/2022 [facility] DATE CREATED AUTHOR AUTHOR'S ORGANIZ ATION 01/16/2022 [employer] DATE CREATED AUTHOR AUTHOR'S ORGANIZ ATION 09/19/2022 [facility] DATE CREATED AUTHOR AUTHOR'S ORGANIZ ATION 02/14/2023 [facility] DATE CREATED AUTHOR AUTHOR'S ORGANIZ ATION 02/28/2023 [facility] DATE CREATED AUTHOR AUTHOR'S ORGANIZ ATION 03/19/2023 [facility] EPIC DATE CREATED AUTHOR AUTHOR'S ORGANIZ ATION 04/12/2023 [facility] REASON FOR VISIT (unrecogniz ed section [...] BE BASED ON THE PRIMARY CLINICAL RECORDS. [facility]. provides no warranty or guarantee of the accuracy or completeness of information in this document.
== END 2023-05-04 08:49 | disposition home or self-care (01) ==
LOC: VC 08:48
PROVIDERS: PCP Radiology Diagnostic Radiology; Visit Provider Radiology Diagnostic Radiology
DX: I83.813 Varicose veins of bilateral lower extremities with pain (principal)
CPT/HCPCS: 36478

== ENCOUNTER 2023-05-18 08:20 | Outpatient (OUT) | payer MEDICARE, BC, SELFPAY ==
--- NOTE | 2023-05-18 | VEIN_ITS ---
Patient Name: GEOVANNY CORCORAN MR#: [id number] : 1950 Exam Date: 05/18/2023 Ordering Doctor: DR GOMEZ SHER M.D. RADIOLOGY REPORT PROCEDURE: [facility] - OFFICE VISIT FOLLOW UP COMPARISON: [facility] EST [facility], 04/23/2023. [facility] EST [facility], 04/07/2023. PROGRESS NOTES: The patient reports no significant problems with following micro foam chemical ablation of left leg perforating veins. The patient has worn her compression stockings. The patient did require oral analgesics. The patient has tried exercise to the best of her ability. Physical exam demonstrates a small wound on the left leg measuring 8 mm in diameter, markedly improved with an eschar. Significant reduction in left leg erythema skin thickening and swelling. No erythema or warmth to suggest cellulitis or thrombophlebitis Review of the ultrasound performed the same day demonstrates occlusive thrombus extending throughout the treated left perforating veins. 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 Bypass surgery has been recommended to the patient by the surgeon. The patient expressed a desire to proceed with treatment of incompetent bilateral varicose veins. VEIN/[facility] EST LMTD IMPRESSION: 1. Successful ablation of the incompetent left leg perforating veins 2. Persistent bilateral varicose veins PLAN: Micro foam chemical ablation of incompetent varicose veins Nurse notes, history and physical were reviewed and confirmed, see attached forms. The nurse was present throughout the physical exam and consultation Dictated by: Gomez Sher MD on 05/18/2023 at 09:03 Approved by: Gomez Sher MD on 05/18/2023 at 09:07
--- NOTE | 2023-05-18 | VEIN_ITS ---
Patient Name: GEOVANNY CORCORAN MR#: [id number] : 1950 Exam Date: 05/18/2023 Ordering Doctor: DR GOMEZ SHER M.D. RADIOLOGY REPORT PROCEDURE: VC EXT VENOUS LT LIMITED COMPARISON: VC EXT VENOUS LT LIMITED, 04/23/2023. INDICATIONS: Phlebitis of superficial vein of lt lower extremity I80.02 TECHNIQUE: Lower extremity freeman scale and Duplex Doppler evaluation of the deep venous system from the inguinal ligament through the calf veins. FINDINGS: REGION: Left lower extremity. THROMBI: Negative for DVT. Heat induced thrombus in two perforators in medial lower leg. COMPRESSIBILITY: Non-compressible segments corresponding to thrombus FLOW: Areas of no flow corresponding to thrombus OTHER: Partial chronic thrombus in popliteal vein. Occluded left femoral artery. CONCLUSION: 1. Post ablation occlusion of treated incompetent perforating veins 2. Occlusion of the left femoral artery, likely chronic Dictated by: Gomez Sher MD on 05/18/2023 at 08:54 Approved by: Gomez Sher MD on 05/18/2023 at 08:55
--- OUTSIDE RECORDS SUMMARY | 2023-05-18 08:23 | XMS_ITS | CCD ---
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 Name Role Phone Christopher Wells Unavailable Unavailable [...] Attending Unavailable Dolce, Denton Jason Referring Unavailable Weslaco, Catrachito D Referring Unavailable Weslaco, Catrachito Gomez Attending Unavailable Weslaco, Catrachito D Admitting Unavailable KAPLE, Christopher A [...] Cerda Admitting Unavailable Gary Cerda Attending Unavailable Weslaco, Catrachito D Referring Unavailable KAPLE, Christopher A Attending Unavailable KAPLE, Christopher A Admitting Unavailable KAPLE, Christopher A Referring Unavailable Weslaco, Catarchito D Referring Unavailable Weslaco, Catrachito D Attending Unavailable Weslaco, Catrachito D Admitting Unavailable Osmin, Linda A [...] Drug Allergy 023 Unknown (qualifier value), Diarrhea [facility] 250 DO Work Phone: (20 sources) hydroCHLOROthiazide; Translations: [hydroCHLOROthiazide CAPS] Drug Allergy 023 Diarrhea [facility] 250 DO Work Phone: (20 sources) hydroCHLOROthiazide / Spironolactone; Translations: [Aldactazide] Drug Allergy 023 Weal (disorder), Diarrhea [facility] 250 DO Work Phone: (20 sources) Lisinopril; Translations: [Zestril] Drug Allergy 023 Diarrhea (finding), Diarrhea [facility] 250 DO Work Phone: (20 sources) metFORMIN; Translations: [Glucophage] Drug Allergy 023 Diarrhea [facility] 250 DO Work Phone: (20 sources) valsartan; Translations: [Diovan] Drug Allergy 023 Unknown (qualifier value), Diarrhea [facility] 250 DO Work Phone: (20 sources) hydroCHLOROthiazide / Lisinopril; Translations: [hydrochlorothiazide-l isinopril] Drug Allergy Diarrhea (finding) [facility] (20 sources) Terazosin; Translations: [terazosin] Drug Allergy Unknown, Unknown Reaction [facility] (9 sources) metFORMIN Drug Allergy Unknown [place] Other (7 sources) Doxazosin; Translations: [DOXAZOSIN] Drug Allergy Unknown Reaction [facility] (6 sources) hydroCHLOROthiazide; Translations: [HYDROCHLOROTHIAZIDE] Drug Allergy Unknown Reaction, Diarrhea [facility] (6 sources) Lisinopril; Translations: [LISINOPRIL] Drug Allergy Unknown Reaction [facility] (6 sources) metFORMIN; Translations: [METFORMIN] Drug Allergy Unknown Reaction, Diarrhea [facility] (5 sources) pioglitazone; Translations: [pioglitazone] Drug Allergy Unknown Reaction [facility] (5 sources) Spironolactone; Translations: [spironolactone] Drug Allergy Unknown Reaction, Hives [facility] (6 sources) valsartan; Translations: [VALSARTAN] Drug Allergy Unknown Reaction [facility] (1 source) SPIRONOLACTON-HYDROCHL OROTHIAZ; Translations: [SPIRONOLACTON-HYDROCH LOROTHIAZ] Propensity to adverse reactions to drug (disorder) 023 [place] [address] Repository (1 source) Terazosin Drug Allergy 023 [facility] Repository (1 source) Lisinopril; Translations: [Prinivil] Drug Allergy [facility] Repository Medications Current Medications Medication Drug Class(es) [...] Wheezing, 8.5 gm, Refill(s) 0, [facility] #[id number], 165, cm, 04/10/23 9:26:00 EST, Height/Length Dosing, [...] 90 tab(s), Refills(s) 3, [facility]: [id number], 166, cm, 10/28/21 9:59:00 EDT, Height/Length Dosing, [...] 6 tab(s), Refills(s) 0, [facility]: [facility] #[id number], 165, cm, 04/10/23 9:26:00 EST, Height/Length Dosing, [...] 90 tab(s), Refills(s) 1, [facility]: [facility] #[id number], 165, cm, 09/10/22 8:16:00 EDT, Height/Length Dosing, 97.4, kg, 09/10/22 8:16:00 EDT, Weight Dosing Start Date: 10/27/22 Status: Ordered cilostazol 50 mg oral tablet (10 sources) Phosphodiesterase 3 Inhibitor Start: 10-08-2021 take 1 tablet by mouth twice daily Pletal 50 mg oral tablet 50 mg = 1 tab(s), Oral, BID, # 60 tab(s), Refills(s) 5, [facility]: [facility] #[id number], 165, cm, 09/24/21 8:39:00 EDT, Height/Length Dosing, [...] 20 cap(s), Refills(s) 1, [facility]: [facility] #[id number], 165, cm, 12/18/22 8:28:00 EDT, Height/Length Dosing, [...] 5 EA, Refills(s) 11, [facility]: [facility] #[id number], 165, cm, 06/11/22 9:10:00 EDT, Height/Length Dosing, 97.6, kg, 06/11/22 9:10:00 EDT, Weight Dosing Start Date: 08/22/22 Status: Ordered Start: 08-22-2022 inject 30 [IU] by griffin bcutaneous injection twice daily Tresiba FlexTouch 100 units/mL subcutaneous solution 30 unit(s), SubCutaneous, BID, Dx E11.65, # 5 EA, Refills(s) 11, [facility]: [facility] #[id number], 165, cm, 06/11/22 9:10:00 EDT, Height/Length Dosing, [...] # 5 EA, Refills(s) 11, [facility]: [facility], 166, cm, 05/10/21 8:27:00 [...] 0.4 MG Sublingual Active polyethylene glycol 3350 595897 mg / potassium chloride 1480 mg / sodium bicarbonate 5720 mg / sodium chloride 34085 mg powder for oral solution (1 source) Osmotic Laxative Start: 05-05-2022 NuLYTELY Sara ry oral powder for reconstitution See Instructions, 1 EA, Refill(s) 0, Prior to colonoscopy., [facility] #[id number], 165, cm, 05/05/22 13:40:00 EST, Height/Length Dosing, [...] 21 tab(s), Refills(s) 0, Pharmacy: [facility] #[id number], 165, cm, 04/10/23 9:26:00 EST, Height/Length Dosing, [...] 05, 2018 11:00pm Has been instructed by [facility] to stop 2 days before heart cath Start: 08-06-2018 take 20 mg by mouth once daily Rivaroxaban Active 20 MG PO Every evening August 06, 2018 12:00am Has been instructed by [facility] to stop 2 days before heart cath [...] capsule Indications: Mixed hyperlipidemia , Atherosclerosis of tanana coronary artery of tanana heart without angina pectoris TAKE 1 CAPSULE BY MOUTH TWICE A DAY 180 capsule 3 01/19/2023 Active Start: 04-07-2022 End: 02-18-2023 Coenzyme Q10 Discontinued PO Daily April 07, 2022 12:00am February 18, 2023 9:26am Start: 11-12-2021 take 1 capsule by cox branson twice daily CoQ10 100 MG Oral Capsule [...] 90 cap(s), Refills(s) 3, [facility]: [facility] #[id number], 165, cm, 05/21/22 12:25:00 EST, Height/Length Dosing, 95.2, kg, 05/21/22 12:25:00 EST, Weight Dosing Start Date: 05/26/22 Status: Ordered Start: 04-17-2021 take 1 capsule by cox branson once daily potassium chloride 10 mEq Cap-ER [...] sources) Coronary atherosclerosis; Translations: [Coronary atherosclerosis of tanana coronary artery] Onset: 09-18-19 23 09-11-2020 Chronic Coronary atherosclerosis and other heart disease (16 sources) Past history of procedure; Translations: [Percutaneous transluminal coronary angioplasty status] Onset: 01-10-2002-12-2023 Episodic Coronary atherosclerosis and other heart disease (3 sources) Coronary atherosclerosis and other heart disease; Translations: [Atherosclerosis of tanana arteries of left leg with ulceration of [...] limb due to atherosclerosis; Translations: [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, left leg] [...] medications] Episodic Other aftercare (1 source) Other predatory animal exterminator (current) drug therapy; Translations: [Other fpc (current) drug therapy] Onset: 09-18-19 Episodic Other aftercare (1 source) Long-term current use of drug therapy; Translations: [Other predatory animal exterminator (current) drug therapy] Onset: 01-27-20 Episodic Other aftercare (1 source) Long-term current use of anticoagulant; Translations: [intermodal customer service (current) use of anticoagulants] Onset: 01-27-20 Episodic Other aftercare (2 sources) Long-term current use of insulin; Translations: [intermodal customer service (current) use of insulin] Onset: 01-27-20 Episodic [...] Consent for Treatmenton 03-17 Consent for Treatment [id number]#1.00T IFF Normal [facility] Discharge Instructionson Discharge Instructions [id number]#1.00 TIFF Normal [facility] ED Clinical Summaryon 2023 ED Clinical Summary (Inserted Image. Carolina ble to display) [place] [id number] ED Clinical Summary Person Information Name: EVON CORCORAN [facility] Age: 72 Years : 1950 Sex: Female Language: Angolan PCP: Christopher WELLS DO, FAAFP Marital Status: [...] 04/10/2023 11:23:38 04/10/2023 11:23:38 04/10/2023 11:23:38 ADDRESS: [address] [place] [id number] [facility] DOC NOTES: MEDICAL INFORMATION: Prescriptions Given: New Medications [facility] #[id number], [address] [place], [place] [id number], [phone] albuterol (Albuterol (Eqv-ProAir HFA) 90 mcg/inh inhalation [...] With: Address: When: Christopher Gus[address], [place] [address] Business (1) In 3 days 04/13/2023 DIAGNOSIS: Bronchitis Normal [facility] ED Note-Physicianon 04-10-19 ED Note-Physician Basic Information [...] No known sick contacts. She is taking zjgi-nad-znlfvgl cough and cold medications. Review of Systems [...] Wheezing, 8.5 gm, Refill(s) 0, [facility] #[id number], 165, cm, 04/10/23 9:26:00 EST, Height/Length Dosing, 96.9, kg, 04/10/23 9:26:00 EST, Weight Dosing azithromycin, = 1 packet(s), Oral, As Directed, as directed on package labeling, X 5 day(s), # 6 tab(s), Refills(s) 0, Pharmacy: [facility] #[id number], 165, cm, 04/10/23 9:26:00 EST, Height/Length Dosing, 96.9, kg, 04/10/23 9:26:00 EST, Weight Dosing predniSONE, 60 mg = 3 tab(s), Oral, Daily, X 7 day(s), # 21 tab(s), Refills(s) 0, Pharmacy: [facility] #[id number], 165, cm, 04/10/23 9:26:00 EST, Height/Length Dosing, [...] WELLS In 3 days 04/13/2023 EST [address], [facility] [place] [address]- [facility] (1) Additional Instructions: Patient Education Acute Bronchitis, Adult Attestation Patient seen and evaluated by the physician records management assistant. Attending physician was present in the emergency department and supervised care. This visit was performed by both the physician and an APC. I performed all aspects of the MDM as documented. This report was transcribed using voice recognition software. Every effort was made to ensure accuracy, however, inadvertently computerized dev technical mgr mistakes may be present. Appropriate healthcare PPE was used in evaluating this patient. The patient was placed in a mask. The healthcare provider was wearing mask, gloves, and utilizing proper hand hygiene. All equipment was properly cleansed. Problem List/Past Medical History Ongoing 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 Chronic renal impairment, stage 3a Claudication [...] nonproliferative diabetic (more content not included)... Normal [facility] Comment on above: Result Comment: [...] Follow these instructions at home: ? Take pcve-mwu-axfgvrj and prescription medicines only as told by [...] and water are not available, use hand validation architect. ? Avoid contact with people who have [...] is easier to cough up. ? Take gczr-ncj-utppgjq and prescription medici (more content not included)... Normal [facility] ED Patient Summaryon 024 ED Patient Summary (Inserted Image. Carolina ble to display) [place] [id number] Patient Discharge Instructions Person Information Name: EVON CORCORAN Age: 72 Years Arrival Date: 04/10/2023 09:13:22 Discharge Diagnosis: Bronchitis Primary Care Physician: Christopher WELLS DO, FAAFP Provider Information Primary Provider: Malvin Gupta M.D. Advanced Patient Safety Sitter:Radhames Suarez PA-C The exam and treatment you received in the Emergency Department were for an urgent problem and are not intended as complete care. It is important that you follow up with a doctor, nurse practitioner, or physician?s records management assistant for ongoing care. If your symptoms [...] Follow-up Instructions: With: Address: When: Christopher WELLS [address] [place] [address] [place] [id number] [facility] () In 3 days 04/13/2023 In the event that this physician does not participate in your insurance network, please consult with your insurance company to find a nearby participating provider. Patient Education Materials: Acute Bronchitis, Adult A MESSAGE TO ALL PATIENTS REGARDING OPIOIDS PRESCRIPTION OPIOIDS: WHAT YOU NEED TO KNOW Prescription opioids can be used to help relieve ufhexkjv-ky-mymppt pain and are often prescribed following a [...] be struggling with addiction, tell your health career services representative and ask for guidance or call SAMHSA?S National Helpline at 3-797-120-HELP. v Yobany (more content not included)... Normal [facility] XR Chest 2 Viewson 4 XR Chest [...] MD Transcribed by: KATEY Technologist: JUAN MIGUEL [facility] Consent for Treatmenton Consent for Treatment [id number]#1.00T IFF [facility] Consultation Noteon 03-23-19 24 Consultation Note [...] 11, Dx: E11.9 Directions: BID, [facility] #[id number], Supply, 165, cm, 06/11/22 9:10:00 EDT, Height/Length Dosing, 97.6, kg, 06/11/22 9:10:00 EDT, Weight Dosing Tresiba FlexTouch 100 units/mL subcutaneous solution: 50 unit(s), SubCutaneous, Daily, Dx E11.65, # 5 EA, Refills(s) 11, [facility]: [facility] #[id number], 165, cm, 06/11/22 9:10:00 EDT, Height/Length Dosing, 97.6, kg, 06/11/22 9:10:00 EDT, Weight Dosing chlorthalidone 25 mg Tab: 25 mg = 1 tab(s), Oral, Bedtime, # 90 tab(s), Refills(s) 1, [facility]: [facility] #[id number], 165, cm, 09/10/22 8:16:00 EDT, Height/Length Dosing, 97.4, kg, 09/10/22 8:16:00 EDT, Weight Dosing potassium chloride 10 mEq Cap-ER: 10 mEq = 1 cap(s), Oral, Daily, # 90 cap(s), Refills(s) 3, [facility]acy: [facility] #[id number], 165, cm, 05/21/22 12:25:00 EST, Height/Length Dosing, [...] Problems HTN - Hypertension / SNOMED CT 8567232691 / Confirmed Familial hypercholesteremia / SNOMED CT 6391282455 / Confirmed Non-smoker / SNOMED CT 76192306 / Confirmed 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 / SNOMED CT 73054415 / Confirmed History of DVT in adulthood / SNOMED CT 5756873365 / Confirmed Type 2 diabetes mellitus with hypercholesterolemia / SNOMED CT 450560289 / Confirmed linked DM with hypercholesterolemia per outpatient CDI policy. Type 2 diabetes mellitus with stage 3 chronic kidney disease / SNOMED CT 608642043 / Confirmed linked DM with CKD per outpatient CDI policy. Mild nonproliferative diabetic retinopathy of both eyes / SNOMED CT 374513918 / Confirmed noted in 08/21/2019 Diabetic Eye Exam. added per outpatient CDI policy. 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 Normal [facility] Comment on above: Result Comment: Elec tronically Signed By: Dawit BARTH, Mara\.br\Date and Time Signed: 03/23/23 09:07 EST Legal Correspondence Officeo n 03-23-2023 Legal Correspondence Office [id number]#1.00 TIFF Normal [facility] Office/Clinic Note-Physician on 03-23-2023 Office/Clinic Note-Physician [id number]#1.00 TIFF Normal [facility] Patient Correspondenceon Patient Correspondence [id number]#1.00 TIFF Normal [facility] Patient Correspondence [id number]#1.00 TIFF Normal [facility] Patient Correspondence [id number]#1.00 TIFF Normal [facility] Patient Correspondence [id number]#1.00 TIFF Normal [facility] Patient History Officeon Patient History Office [id number]#1.00 TIFF Normal [facility] Family Medicine Office/Clini c Noteon [...] re: potential procedure: Clinically currently asymptomatic and jpy-myfj-btpxtulunqj. Please see Dr. Castro's consultation 2. BMI [...] and exercise. 4. Long-term insulin use (Z79.4: prison (current) use of insulin) Dr Ssbbagh following. 5. Mild nonproliferative diabetic retinopathy of both eyes (E11.3293: Type 2 diabetes mellitus with mild nonproliferative diabetic retinopathy without macular edema, bilateral) Follow-up with bellman captain 6. Type 2 diabetes mellitus with hypercholesterolemia (E11.69: Type 2 diabetes mellitus with other specified complication) Tresiba 50 units SQ every morning with sliding scale per med rec per Dr. Salter. Continue losartan: Sugars improved, surveillance A1c's per Dr. Ruggiero 7. Type 2 diabetes mellitus with stage (more content not included)... Normal [facility] Comment on above: Result Comment: [...] plan? Your health care provider or certified drug counselor can help you make a plan for [...] stroke). Where to find more information ? [place] [employer]: www.diabetes.org Summary ? Exercising regularly is important for overall health, especially for people who have diabetes mellitus. ? Exercising has many health benefits. It increases muscle strength and bone density and reduces body fat and stress. It also lowers and controls blood glucose. ? Your health care provider or certified drug counselor can help you make an activity plan [...] provider. Document Revised: 11/28/2019 Document Reviewed: 11/28/2019 [email or web address] Patient Education ? 2022 [employer]. [facility] Nursing Note - Woundon 03-19 Nursing Note - Wound [id number]#2.00 TIFF [facility] Consultation Noteon 03-07-20 23 Consultation Note [id number]#1.00T IFF [facility] CHEMISTRYOrdered By: Lab ROP User on 03-04-2023 Glucose [Mass/Vol] 78 mg/dL Normal 55 - 99 mg/dL [facility] C POC Subsection POC Device SN [id number] Invalid Interpretation Code [facility] POC Subsection POC Username MACIE POTTS Invalid Interpretation Code [facility] POC Subsection Sodium [Moles/Vol] [id number] mmol/L Invalid Interpretation Code [facility] POC Subsection Capillary Glucose POCon 02-14 Glucose [Mass/Vol] 78 mg/dL Normal 55-99 [facility] Comment on above: Performed By: #### 2 [id number] #### [facility] Laboratory [address] [place] [address] Consent for Procedure/Surger yon 03-04-2023 Consent for Procedure/Surgery [id number]#1.00 TIFF [facility] Consent for Treatmenton 02-14 Consent for Treatment [id number]#1.00T IFF [facility] Discharge Instructionson Discharge Instructions [id number]#1.00 TIFF Normal [facility] Insurance Correspondenceon 1 05-05-2022 Insurance Correspondence [id number]#1.00 TIFF Normal [facility] IntraOperative Documentson 1 05-05-2022 IntraOperative Documents [id number]#1.00 TIFF Normal [facility] Main OR Intraoperative Recor don 03-04-2023 Main OR Intraoperative Record IntraOp Document Type FTPM Summary Primary Physician: Nicola Tapia DO Finalized Date/Time: 03/04/23 09:06:01 Pt. Name: EVON CORCORAN Brent Veras/Sex: 1950 Female Med Rec #: [id number] Physician: Nicola Tapia DO Financial #: [id number] Pt. Type: P Room/Bed: / Admit/Disch: 03/04/23 [...] Leanne Montenegro Role Performed Surgeon - Primary Doorperson Or Luggage Porter - Primary Scrub - Primary Time In 03/04/23 09:01:00 03/04/23 09:01:00 03/04/23 09:01:00 Time Out 03/04/23 09:06:00 03/04/23 09:06:00 03/04/23 09:06:00 Procedure HIP INJECTION(Left) HIP INJECTION(Left) HIP INJECTION(Left) Comments Last Modified By: Crow ECHAVARRIA, Estrellita Maria RN, Estrellita Ryder RN 03/04/23 09:05:56 03/04/23 09:05:56 03/04/23 09:05:56 Entry 4 Case Attendee Ervin Mckeon Role Performed License Distributor Time In 03/04/23 09:01:00 Time Out 03/04/23 [...] Outcomes Met? Yes Last Modified By: Estrellita aMria RN 03/04/23 09:01:51 Post-Care Text: The patient received appropriate medication(s) safely administered during the perioperative period Surgical Procedures FTPM Entry 1 Procedure Description Procedure HIP INJECTION Modifiers Left Surgeon Description HIP INJ W/ FLUORO Primary Procedure Yes Primary Surgeon Nicola Tapia DO Start 03/04/23 09:04:00 Stop 03/04/23 09:05:00 Anesthesia Type None Surgical Service Pain Management Wound Class 1 - Clean Last Modified By: Esterllita Maria RN 03/04/23 09:05:58 General Case Data [...] and tissue Entry 1 Skin Integrity Intact, [place], Warm, and Skin Abnormality No Dry Outcomes [...] injury related (more content not included)... Normal [facility] Main OR Preoperative Recordo n 03-04-2023 Main OR Preoperative Record Holding Area Document Type FTPM Summary Primary Physician: Nicola Tapia DO Finalized Date/Time: 03/04/23 08:19:34 Pt. Name: EVON CORCORAN/Sex: 1950 Female Med Rec #: [id number] Physician: Nicola Tapia DO Financial #: [id number] Pt. Type: P Room/Bed: / Admit/Disch: 03/04/23 [...] Signed By: Macie Potts RN 03/04/23 08:19 [facility] Consent for Treatmenton 02-13 Consent for Treatment [id number]#1.00T IFF Normal [facility] Multi-Wound Charton 03-03-20 Multi-Wound Chart [id number]#1.00 TIFF Normal [facility] Nursing Assessment - Woundon 03-03-2023 Nursing Assessment - Wound [id number]#1.00 TIFF Normal [facility] Physician Orderon 03-03-2023 Physician Order [id number]#1.00 TIFF Normal [facility] Progress Note - Woundon 02-13 Progress Note - Wound [id number]#1.00 TIFF [facility] Correspondence - Woundon Correspondence - Wound [id number]#1.00 TIFF [facility] Consent for Procedure/Surger yon 02-24-2023 Consent for Procedure/Surgery [id number]#1.0 0TIFF [facility] Consent for Treatmenton 02-13 Consent for Treatment [id number]#1.00T IFF [facility] Multi-Wound Charton 02-25-20 Multi-Wound Chart [id number]#1.00 TIFF [facility] Nursing Assessment - Woundon 02-24-2023 Nursing Assessment - Wound [id number]#1.00 TIFF [facility] Nursing Note - Woundon 02-24 Nursing Note - Wound [id number]#1.00 TIFF [facility] Physician Orderon 02-24-2023 Physician Order [id number]#1.00 TIFF [facility] Procedure - Woundon 02-25-20 Procedure - Wound [id number]#1.00 TIFF [facility] Progress Note - Woundon 02-13 Progress Note - Wound [id number]#1.00 TIFF [facility] Retail - Clinical Noteon Retail - Clinical Note [id number]#1.00T IFF [facility] US venous mapping BI loweron 02-19-2023 US venous mapping BI lower [facility] Main [place] [address] [place] [address] Ultrasound Report Signed Patient: Evon Corcoran MR#: [id number] : 1950 Acct:[id number] Age/Sex: 72 / F ADM Date: 02/18/23 Loc: IR Room: Type: [facility] Attending Dr: Miguel Membreno MD Ordering [...] Miguel Membreno M.D.02/19/2023 1:30 PM Dictation Location: [place] [address] Tech: Isabell Duarte Transcribed By: RICH 02/19/23 1330 Dictated By: Miguel Membreno MD 02/19/23 1327 Signed By: 02/19/23 1330 Normal [facility] Blood Urea Nitrogenon 2022 Urea nitrogen [Mass/Vol] 25 mg/dL Normal 7-25 [facility] Comment on above: Performed By: #### C REAT, BUN #### [facility] [address] [id number] [place] Creatinineon 02-18-2023 Creatinine [Mass/Vol] 1.18 mg/dL Normal 0.60-1.20 [facility] Comment on above: Performed By: #### C REAT, BUN #### [facility] [address] [place] [address] [place] Creatinine Clr Calc Pharmacy 49.07 Normal [facility] Comment on above: Result Comment: PERF ORMED BY: [place] [address] PATHOLOGIST DIRECTOR A[employer]ET[employer] AIRAM ROMEO M.D. Performed By: #### C REAT, BUN #### [facility] [address] [place] [address] [place] GFR/1.73 sq M.predicted MDRD (S/P/Bld) [Vol rate/Area] 48.770 mL/min/{1.73_m2} Normal [facility] Comment on above: Performed By: #### C REAT, BUN #### [facility] [address] [place] [address] [place] Creatinine [Mass/volume] in Serum or PlasmaOrdered By: Miguel Membreno on 02-18-2023 Creatinine [Mass/Vol] 1.18 mg/dL 0.60-1.20 [facility] Lab Reportson 02-18-2023 Lab Reports [id number]#1.00T IFF Normal [facility] No Panel InformationOrdered By: Miguel Membreno on 02-18-2023 Estimated GFR (CKD-EPI) 48.770 mL/Min [facility] Creatinine Clearance (Chem 49.07 [facility] Operative Reporton Operative Report [id number]#1.00T IFF Normal [facility] Retail - Clinical Noteon Retail - Clinical Note [id number]#1.00T IFF Normal [facility] Retail - Clinical Note [id number]#1.00T IFF Normal [facility] Urea nitrogen [Mass/volume] in Serum or PlasmaOrdered By: Miguel Membreno on 02-18-2023 Urea nitrogen [Mass/Vol] 25 mg/dL 10-07 [facility] Insurance Correspondenceon 1 04-20-2022 Insurance Correspondence [id number]#1.00 TIFF Normal [facility] Physician Orderon 02-17-2023 Physician Order [id number]#1.00 TIFF Normal [facility] CHEMISTRYOrdered By: Lab ROP User on 02-16-2023 Glucose [Mass/Vol] 311 mg/dL High 55 - 99 mg/dL FT C POC Subsection POC Device SN [id number] Invalid Interpretation Code [facility] POC Subsection POC Username RONI CHOWDHURY Invalid Interpretation Code [facility] POC Subsection Sodium [Moles/Vol] 251548274 mmol/L Invalid Interpretation Code [facility] POC Subsection Capillary Glucose POCon Glucose [Mass/Vol] 311 mg/dL High 55-99 [facility] Comment on above: Performed By: #### 2 [id number] #### [facility] Laboratory [address] [place] [address] Consent for Treatmenton Consent for Treatment [id number]#1.00T IFF [facility] Consent for Treatment [id number]#1.00T IFF [facility] Main OR Preoperative Recordo n 02-16-2023 Main OR Preoperative Record Holding Area Document Type [facility] Summary Primary Physician: Gary Cerda MD Finalized Date/Time: 02/16/23 13:36:16 Pt. Name: YOKASTA CORCORANLAW Veras/Sex: 1950 Female Med Rec #: [id number] Physician: Gary Cerda MD Financial #: [id number] Pt. Type: P Room/Bed: / Admit/Disch: 02/16/23 [...] 13:19 Bertha Chowdhury RN 02/16/23 13:36 Normal [facility] Multi-Wound Charton 02-17-20 Multi-Wound Chart [id number] 201 [id number]#1.00 TIFF Normal [facility] Nursing Assessment - Woundon 02-16-2023 Nursing Assessment - Wound [id number]#1.00 TIFF Normal [facility] Nursing Note - Woundon 02-16 Nursing Note - Wound [id number]#1.00 TIFF Normal [facility] Patient Correspondenceon Patient Correspondence [id number]#1.00T IFF Normal [facility] Consent for Procedure/Surger yon 02-10-2023 Consent for Procedure/Surgery [id number]#1.00 TIFF Normal [facility] Consent for Treatmenton 01-15 Consent for Treatment [id number]#1.00T IFF Normal [facility] Multi-Wound Charton 02-11-20 Multi-Wound Chart [id number] 102 [id number]#1.00 TIFF Normal [facility] Nursing Assessment - Woundon 02-10-2023 Nursing Assessment - Wound [id number]#1.00 TIFF Normal [facility] Nursing Note - Woundon 02-10 Nursing Note - Wound [id number]#1.00 TIFF Normal [facility] Physician Orderon 02-10-2023 Physician Order [id number] 102 [id number]#1.00 TIFF Normal [facility] Procedure - Woundon 02-11-20 Procedure - Wound [id number] 102 [id number]#1.00 TIFF Normal [facility] Progress Note - Woundon 01-15 Progress Note - Wound [id number]#1.00 TIFF Normal [facility] Insurance Correspondenceon 04-05-2022 Insurance Correspondence [id number]#1.00 TIFF Normal [facility] Insurance Correspondenceon 04-04-2022 Insurance Correspondence [id number]#1.00 TIFF [facility] January 29, [address] COR[address]AN [address] [place] [address] EVON CORCORAN L 1950 We are pleased [...] in the following areas: ? Assign a Piano Professor who will work with you to help [...] phone contact on 02/19/2023 at 08:00 AM. [facility] Piano Professor [phone] opt. #2 [facility] Consent for Procedure/Surger yon 01-27-2023 Consent for Procedure/Surgery [id number]#1.00 TIFF [facility] Consent for Treatmenton 01-14 Consent for Treatment [id number]#1.00T IFF [facility] Multi-Wound Charton 01-28-20 23 Multi-Wound Chart [id number] 102 [id number]#1.00 TIFF [facility] Nursing Assessment - Woundon 01-27-2023 Nursing Assessment - Wound [id number]#1.00 TIFF [facility] Nursing Note - Woundon 01-27 Nursing Note - Wound [id number]#1.00 TIFF [facility] Physician Orderon 01-27-2023 Physician Order [id number] 102 [id number]#1.00 TIFF Normal [facility] Procedure - Woundon 01-28-20 Procedure - Wound [id number] 102 [id number]#1.00 TIFF Normal [facility] Progress Note - Woundon 01-14 Progress Note - Wound [id number]#1.00 TIFF Normal [facility] Ambulatory Visit Summaryon 03-28-2022 Ambulatory [...] With: Denton Mares DPM Where: [facility] [place] Thursday 9:45 AM EST With: Where: [facility] Pain Management Thursday 8:45 AM EST With: Gary Cerda MD Where: [facility] 2022 8:00 AM EST With: Linda Solorio CNP Where: [facility] Invalid Interpretation Code [address], [place] [address]- \.br\ Thursday 8:00 AM EST \.br\ With:\.br\ Where: [facility] Primary Care [facility] Family Medicine Office/Clini c Noteon 01-26-2023 Family [...] of clutter to prevent tripping and/or falling. [place] Advance Directives reviewed. Documents remain at home, [...] Labs were ordered, to be completed with [facility]. Mammogram and DEXA scan up to date, [...] as directed. 3. Long-term insulin use (Z79.4: prison (current) use of insulin) Patient voices understanding with proper use of insulin dosage. Follows up with labs, DM supplies and dosage adjustments as needed. Reviewed available sites that can be used to administer Insulin, patient voices understanding. Will continue as directed. 4. Chronic renal impairment, stage 3a (N18.31: Chronic kidney disease, stage 3a) Follows with [facility], Dr. Núñez. Encouraged with avoiding NSAID's. Healthy Kidney Nutritional education material provided. Goals to keep blood sugars and blood pressure under better control to reduce cardiovascular risk factors. Medications and blood work monitored with visits. Continues taking statin medication daily. 5. 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 6. Anticoagulated (Z79.01: intermodal customer service (current) use of anticoagulants) Taking Xarelto and [...] of Hepatitis C for people born between 0116-5154. Hand (more content not included)... Normal [facility] Comment on above: Result Comment: Elec tronically Signed By: Christopher WELLS DO, FAAFP\.br\Date and Time Signed: 01/26/23 17:15 EST\.br\Electronically Co-Signed By: Lesly West LPN\.br\Date and Time Co-Signed: 01/26/23 09:21 EST Nursing Assessment - Woundon 01-26-2023 Nursing Assessment - Wound [id number]#2.00 TIFF [facility] Nursing Note - Woundon 01-26 Nursing Note - Wound [id number]#2.00 TIFF [facility] Patient Educationon 01-27-20 Patient Education Caregiving [...] Keep items that you use often in gyjn-kh-djwiq places. Lower the shelves around your home [...] the way. ? Do not use floor guatemalan or wax that makes floors slippery. What [...] Control and Prevention, [place]: www.cdc.gov ? National [place] on Aging: www.[place].nih.gov Contact a doctor if: [...] provider. Document Revised: 12/02/2021 Document Reviewed: 10/03/2020 [email or web address] Patient Education ? 2022 [employer]. Endocrinology Diabetes Melli (more content not included)... [facility] Screenson 01-26-2023 Screens [id number] 021 [id number]#1.00TI FF [facility] Multi-Wound Charton 01-24-20 23 Multi-Wound Chart [id number] 105 [id number]#1.00 TIFF [facility] Physician Orderon 01-23-2023 Physician Order [id number] 105 [id number]#1.00 TIFF [facility] Consent for Treatmenton Consent for Treatment [id number]#1.00T IFF [facility] Consent for Procedure/Surger yon 01-14-2023 Consent for Procedure/Surgery [id number]#1.00 TIFF [facility] Consent for Procedure/Surgery [id number]#1.00 TIFF [facility] Nursing Assessment - Woundon 01-14-2023 Nursing Assessment - Wound [id number]#1.00 TIFF [facility] Nursing Note - Woundon 01-14 Nursing Note - Wound [id number]#2.00 TIFF [facility] CHEMISTRYOrdered By: Cynthia Serrano se on 01-13-2023 HbA1c (Bld) [Mass fraction] 11.5 % High <=5.9% [facility] ChemAutoSS Consent for Treatmenton 12-16 Consent for Treatment [id number]#1.00T IFF Normal [facility] Consent to Photographon 12-16 Consent to Photograph [id number]#1.00T IFF Normal [facility] Correspondence - Woundon Correspondence - Wound [id number]#1.00T IFF Normal [facility] Correspondence - Wound [id number]#1.00T IFF Normal [facility] Correspondence - Wound [id number]#1.00T IFF Normal [facility] UpsR4aoi 01-13-2023 HbA1c (Bld) [Mass fraction] 11.5 % High <=5.9 [facility] Comment on above: Performed By: #### 2 [id number] #### [facility] Laboratory [address] [place] [address] Multi-Wound Charton 01-14-20 Multi-Wound Chart [id number] 002 [id number]#1.00 TIFF Normal [facility] Nursing Assessment - Woundon 01-13-2023 Nursing Assessment - Wound [id number]#1.00 TIFF Normal [facility] Outside Recordson 01-13-2023 Outside Records [id number] 231 [id number]#1.00T IFF Normal [facility] Patient Correspondenceon Patient Correspondence [id number]#1.00 TIFF Normal [facility] Physician Orderon 01-13-2023 Physician Order [id number] 002 [id number]#1.00 TIFF Normal [facility] Procedure - Woundon 01-14-20 Procedure - Wound [id number] 002 [id number]#1.00 TIFF Normal [facility] Progress Note - Woundon - Progress Note - Wound [id number]#1.00 TIFF Normal [facility] Insurance Correspondenceon 1 Insurance Correspondence [id number]#1.0 0TIFF [facility] Radiology Outside Office Mechanical Product Engineer yon 01-07-2023 Radiology Outside Office Copy [id number]#1.00 TIFF [facility] Consent for Treatmenton 12-15 Consent for Treatment [id number]#1.00T IFF [facility] Consultation Noteon 01-07-20 Consultation Note Patient: [...] red blood per rectum) / SNOMED CT 585705435 / Confirmed Breast cancer screening by mammogram / SNOMED CT 908267483 / Confirmed 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 / SNOMED CT 29419598 / Confirmed Change in bowel habits / SNOMED CT 230928824 / Confirmed Chronic renal impairment, stage 3a / SNOMED CT 7150318586 / Confirmed Claudication of both lower extremities / SNOMED CT 574599485 / Confirmed Colon polyp / SNOMED CT 138040430 / Confirmed Degenerative localized arthritis of hip / SNOMED CT 474202374 / Confirmed 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 / SNOMED CT 845697961 / Confirmed Diabetes / SNOMED CT 256408829 / Confirmed Diarrhea / SNOMED CT 251118899 / Confirmed Enthesopathy of left hip region / SNOMED CT 91871167 / Confirmed Familial hypercholesteremia / SNOMED CT 3600891144 / Confirmed Hemorrhoids / SNOMED CT 326743252 / Confirmed History of colon polyps / SNOMED CT 7232172751 / Confirmed History of DVT in adulthood / SNOMED CT 0020950827 / Confirmed HTN - Hypertension / SNOMED CT 3046072411 / Confirmed Hypertensive heart and chronic kidney disease without heart failure, with stage 1 through stage 4 chronic kidney disease, or unspecified chronic kidney disease / SNOMED CT 0537785181 / Confirmed noted in 12/10/2021 Nephrology Consult Note page 3. added per outpatient CDI policy. Long-term insulin use / SNOMED CT 0317602041 / Confirmed Current Medication List includes Tresiba. added per outpatient CDI policy. Lumbar disc herniation / SNOMED CT 923562701 / Confirmed Lumbar stenosis / SNOMED CT 62117808 / Confirmed Mild nonproliferative diabetic retinopathy of both eyes / SNOMED CT 690897799 / Confirmed noted in 08/21/2019 Diabetic Eye Exam. added per outpatient CDI policy. Morbid obesity / SNOMED CT 834737955 / Confirmed Non-smoker / SNOMED CT 93047312 / Confirmed Primary ovarian failure / SNOMED CT 240692682 / Confirmed Sleep apnea / SNOMED CT 403689103 / Confirmed Type 2 diabetes mellitus with hypercholesterolemia / SNOMED CT 127913082 / Confirmed linked DM with hypercholesterolemia per outpatient CDI policy. Type 2 diabetes mellitus with stage 3 chronic kidney disease / SNOMED CT 491904945 / Confirmed linked DM with CKD (more content not included)... Normal [facility] Comment on above: Result Comment: Elec tronically Signed By: Prashant PIMENTEL, Gary Gomez\.br\Date and Time Signed: 01/06/23 09:13 EDT HIPAA Forms Officeon 023 HIPAA Forms Office [id number] [facility] [id number]#1.00 TIFF Normal [facility] Legal Correspondence Officeo n 01-06-2023 Legal Correspondence Office [id number]#1.00 TIFF Normal [facility] Legal Correspondence Office [id number]#1.00 TIFF Normal [facility] Office/Clinic Note-Physician on 01-06-2023 Office/Clinic Note-Physician [id number]#1.00 TIFF Normal [facility] Patient Correspondenceon Patient Correspondence [id number]#1.00 TIFF Normal [facility] Patient Correspondence [id number]#1.00 TIFF Normal [facility] Patient Correspondence [id number]#1.00 TIFF Normal [facility] Patient Correspondence [id number]#1.00 TIFF Normal [facility] Patient Correspondence [id number]#1.00 TIFF Normal [facility] Patient History Officeon Patient History Office [id number]#1.00 TIFF Normal [facility] Radiology Outside Office Mechanical Product Engineer yon 01-06-2023 Radiology Outside Office Copy [id number]#1.00 TIFF Normal [facility] Consent for Treatmenton 12-14 Consent for Treatment [id number]#1.00T IFF Normal [facility] MRI Pelvis (Bony) w/o contra ston 12-31-2022 [...] MD Transcribed by: KATEY Technologist: NUBIA Normal [facility] RAD - MRI Screening Formon 1 RAD - MRI Screening Form [id number]#1.00 TIFF Normal [facility] Physician Orderon 12-24-2022 Physician Order [id number] 004 [id number]#1.00T IFF Normal [facility] Physician Order [id number]#1.00T IFF Normal [facility] Outside Records Officeon Outside Records Office [id number]#1.00 TIFF Normal [facility] Referrals Officeon Referrals Office [id number] 021 [id number]#1.00 TIFF [facility] Consultation Noteon 12-23-19 Consultation Note [id number] 002 [id number]#1.00T IFF [facility] Physician Orderon 12-22-2022 Physician Order [id number] [id number]#1.00 TIFF [facility] Ambulatory Visit Summaryon 1 Ambulatory Visit Summary EVON CORCORAN :1950 Visit Date:12/18/2022 Ambulatory Visit Instructions Your Diagnosis Enthesopathy of left hip region Hypertensive heart and chronic kidney disease without heart failure, with stage 1 through stage 4 chronic kidney disease, or unspecified chronic kidney disease Long-term insulin use BMI 36.0-36.9,adult Morbid obesity Chronic renal impairment, stage 3a 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 Type 2 diabetes mellitus with hypercholesterolemia [...] Thursday 8:00 AM EST With: Where: [facility] Primary Care Normal [address] [place] [address]- \.br\ You Need to Schedule the Following Appointments\.br\ Follow Up with RUSSELL SHEPHERD FAAFP, Christopher Montenegro, CHERISE, PED When: In 3 months\.br\ Where:\.br\ [address]\.br\ [place] [address].br\ \.br\ Medications\.br\ What How Much When Why Instructions\.br\ New doxycycline (doxycycline hyclate 100 mg Cap) 1 Capsules By Mouth 2 times a day Venous stasis ulcer Refills: 1 Pickup at [facility] #98843\.br\ Unchanged amlodipine (amLODIPine 5 mg Tab) 1 [...] Mouth Every day\.br\ Pharmacy Information\.br\ [id number]: [address] [place], [place] [id number] [phone]\.br\ Medications and Immunizations Administered\.br\ Not Given\.br\ influenza virus vaccine, inactivated, Patient Refuses\.br\ Allergies\.br\ Aldactazide (Hives)\.br\ Cardura (Unknown)\.br\ Diovan (Unknown)\.br\ Glucophage\.br\ Hytrin\.br\ Prinivil\.br\ Zestril (Diarrhea)\.br\ hydrochlorothiazi de-lisinopril (Diarrhea)\.br\ Problems\.br\ Ongoing - Any problem that you are currently receiving treatment for.\.br\ BRBPR (bright red blood per rectum)\.br\ Breast cancer screening by mammogram\.br\ 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 \.br\ Take or apply byiw-jwr-vzaciic and prescription medicines only as told by [...] cannot use soap and water, use hand validation architect.\.br\ ? \.br\ Change your bandage as told [...] for help if you feel david [facility] Family Medicine Office/Clini c Deliaon 12-18-2022 Family [...] ER daily. 3. 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 Normal [facility] Comment on above: Result Comment: [...] at home: Medicines ? Take or apply dwqf-xho-fglyzfx and prescription medicines only as told by [...] cannot use soap and water, use hand validation architect. ? Change your bandage as told by [...] day for signs of infection. ? Take ypac-dmr-dhkcnka and prescription medicines only as told by your doctor. ? Keep all follow-up visits as told by your doctor. This is important. This information is not intended to replace advice given to you by your health care provider. Make sure you discuss any questions you have with your health care provider. Document Revised: 12/26/2021 Document Reviewed: 12/26/2021 [employer] Patient Education ? 2022 [employer]. [facility] Consultation Noteon 12-16-19 Consultation Note [id number] 002 [id number]#1.00C D:127 Normal [facility] MRI Spine Lumbar w/o Contras ton 12-09-2022 [...] by: KATEY Technologist: NUBIA Technical Comments None [facility] Consent for Treatmenton 11-15 Consent for Treatment [id number]#1.00C D:127 [facility] RAD - MRI Screening Formon 0 12-08-2022 RAD - MRI Screening Form [id number]#1.00 CD:127 [facility] Physician Orderon 11-26-2022 Physician Order [id number] [id number]#1.00CD :127 [facility] Physician Order [id number] [id number]#1.00CD :127 [facility] BD Bone Density DEXAon 11-25 BD [...] MD Transcribed by: KATEY Technologist: TRISTAN Gonzalez [facility] MA Mamm Screen w/CAD if perf and [...] very important to your health. The current [employer] and National Comprehensive Cancer [...] 2-Benign finding Recommendation: Normal interval follow-up Normal [facility] Consent for Treatmenton 11-14 Consent for Treatment [id number]#1.00C D:127 Normal [facility] Consultation Noteon 11-24-19 Consultation Note [id number]#1.00CD :127 Normal [facility] Consultation Noteon 11-14-19 Consultation Note [id number]#1.00C D:127 Normal [facility] Family Medicine Office/Clini c Noteon 11-06-2022 Family [...] and some weakness, I take WC to [place] so I walk and do Wheel Chair. Pain stays in the hip. After walking approximately 10 minutes at [place] patient needs to get into wheelchair secondary to the pain in her left hip. Patient reports no poor color no radiation of pain into left thigh and nor leg nor foot. Diabetes is now managed per Dr. Ruggiero, her last A1c at Dr. Ruggiero's office was 8.9 and the 1 prior to that was 13. Dr. Oliveira is her interchange agent and she believes she sees him next [...] We will refer to orthopedics here at [facility]. Physical therapy [facility]. Patient defers x-rays and well allow access orthopedics to perform at time of evaluation. Discussed possibility of bursitis and possible injection under fluoroscopy via orthopedics Ordered: [facility] External Ambulatory Referral [facility] Outpatient Physical Therapy Evaluate Patient, Develop a Plan of Care, & Implement Plan (more content not included)... Normal [facility] Comment on above: Result Comment: Elec trojinally [...] these instructions at home: Medicines ? Take kexc-uvw-fnpmxuf and prescription medicines only as told by [...] Reviewed: 02/25/2022 Elsevier Patient Education ? 2022 [email or web address] Normal [facility] Physician Referralon 023 Physician Referral [id number]#1.00 CD:127 Normal [facility] US arterial duplex LE LTon 0 11-04-2022 US arterial duplex LE LT [facility] [place] [address] Ultrasound Report Signed Patient: Evon Corcoran MR#: [id number] 844 : 1950 Acct:[id number] Age/Sex: 72 / F ADM Date: 11/04/22 Loc: [facility] Room: Type: [facility] Attending Dr: Renetta Barahona GUEST SERVICES ASSOCIATE-C Ordering Provider: Renetta Barahona APRN Date of [...] MD 11/04/22 1307 Signed By: 11/04/22 1309 [facility] US ankle/arm indiceson 11-03 US ankle/arm indices [facility] [place] [address] Ultrasound Report Signed Patient: Evon Corcoran MR#: [id number] 844 : 1950 Acct:[id number] Age/Sex: 72 / F ADM Date: 11/03/22 Loc: [facility] Room: Type: [facility] Attending Dr: Miguel Membreno MD Ordering [...] MD 11/03/22 1024 Signed By: 11/03/22 1026 [facility] CHEMISTRYOrdered By: [employer] on 10-31-2022 Albumin [Mass/Vol] 3.4 g/dL Normal 3.3 - 5.0 gm/dL [facility] Remisol Anion gap [Moles/Vol] 11 mmol/L Normal [...] rate/Area] 43 mL/min/1.73 m2 Low >=59mL/min/1.73 m2 [facility] Chem S Glucose [Mass/Vol] 316 mg/dL High [...] ratio] 22 mg/mg High 10 - 20 [facility] Remisol CHEMISTRYOrdered By: Jeniffer Rosas on 10-31-2022 Albumin Elph (U) [Mass fraction] 8.4 mg/dL Invalid Interpretation Code FT Remisol Creatinine (U) [Mass/Vol] 132.6 mg/dL Invalid Interpretation Code [facility] Remisol U Prot/Creat Ratio 63.30 mg/gm Cr Normal 0.00 - 200.00 mg/gm Cr FT Remisol Consent for Treatmenton 10-14 Consent for Treatment [id number]#1.00C D:127 Normal [facility] Physician Orderon 10-31-2022 Physician Order [id number]#1.00 CD:127 Normal [facility] Renal Panelon 10-31-2022 Albumin [Mass/Vol] 3.4 g/dL Normal 3.3-5.0 [facility] Comment on above: Performed By: #### 1 [id number], [id number] ####[facility] [address] [place] [address] Anion gap [Moles/Vol] 11 mmol/L Normal 6-16 [facility] Comment on above: Performed By: #### 1 7361493, [id number] ####[facility] [address] [place] [address] Calcium [Mass/Vol] 8.4 mg/dL Low 8.9-11.1 [facility] Comment on above: Performed By: #### 1 [id number], [id number] ####[facility] [address] [place] [address] Chloride [Moles/Vol] 104 mmol/L Normal 101-111 [facility] Comment on above: Performed By: #### 1 8647516, [id number] ####[facility] [address] [place] [address] CO2 [Moles/Vol] 27 mmol/L Normal 21-31 [facility] Comment on above: Performed By: #### 1 7435373, [id number] ####[facility] [address] [place] [address] Creatinine [Mass/Vol] 1.3 mg/dL Normal 0.5-1.3 [facility] Comment on above: Performed By: #### 1 7062097, [id number] ####[facility] [address] [place] [address] Glucose [Mass/Vol] 316 mg/dL High 55-199 [facility] Comment on above: Result Comment: If t his glucose result represents a fasting glucose, interpretation should refer to the following reference range: 55-99 mg/dL Performed By: #### 1 [id number], [id number] ####[facility] [address] [place] [address] Phosphate [Mass/Vol] 3.8 mg/dL Normal 1.9-4.6 [facility] Comment on above: Performed By: #### 1 6661491, [id number] ####[facility] [address] [place] [address] Potassium [Moles/Vol] 4.2 mmol/L Normal 3.5-5.3 [facility] Comment on above: Performed By: #### 1 7976271, [id number] ####[facility] [address] [place] [address] Sodium [Moles/Vol] 138 mmol/L Normal 135-145 [facility] Comment on above: Performed By: #### 1 9727535, [id number] ####[facility] [address] [place] [address] Urea nitrogen [Mass/Vol] 28 mg/dL High 5-21 [facility] Comment on above: Performed By: #### 1 7722809, [id number] ####[facility] [address] [place] [address] Urea nitrogen/Creatinine [Mass ratio] 22 No Units High 10-20 [facility] Comment on above: Performed By: #### 1 0587844, [id number] ####[facility] [address] [place] [address] U Protein/Creat Ratioon 10-14 Albumin Elph (U) [Mass fraction] 8.4 mg/dL Invalid Interpretation Code [facility] Comment on above: Result Comment: The reference range and other method performance specifications have not been established for this test; results should be integrated into the clinical context for interpretation. Performed By: #### 1 [id number], [id number] #### [facility] Laboratory [address] [place] [address] Creatinine (U) [Mass/Vol] 132.6 mg/dL Invalid Interpretation Code [facility] Comment on above: Result Comment: The reference range and other method performance specifications have not been established for this test; results should be integrated into the clinical context for interpretation. Performed By: #### 1 [id number], [id number] #### [facility] [address] [place] [address] U Prot/Creat Ratio 63.30 mg/gm Cr Normal .00-200.00 [facility] Comment on above: Performed By: #### 1 1755973, [id number] #### [facility] [address] [place] [address] URINALYSISOrdered By: Rosa Chacon on 10-31-2022 Bacteria [...] AM) Normal Negative [facility] UA Auto SS [place].plasma/Lith ium.RBC (Bld) [Mass ratio] 0-3 /HPF Normal [...] AM) Invalid Interpretation Code 1.005 - 1.030 [facility] UA Auto SS UA Spec Desc Clean Catch (10/31/22 7:33 AM) Normal [facility] UA Auto SS Urobilinogen Qn (U) 0.7162309 {Donell'U}/dL Normal 0.0 - 1.0 EU/dL [facility] UA Auto SS WBC Auto Ql (U) 1+ *ABN* (10/31/22 7:33 AM) Invalid Interpretation Code Negative [facility] UA Auto SS WBC LM.HPF (Urine sed) [#/Area] 6-15 /HPF Invalid Interpretation Code 0-5/HPF [facility] UA Auto SS Urinalysison 10-31-2022 Bacteria LM Ql (Urine sed) 1+ /HPF Abnormal Trace [facility] Comment on above: Performed By: #### 1 [id number], [id number] #### [facility] [address] [place] [address] Bilirubin Ql (U) Negative Normal Negative [facility] Comment on above: Performed By: #### 1 [id number], [id number] #### [facility] [address] [place] [address] Clarity (U) CLEAR Normal Clear [facility] Comment on above: Performed By: #### 1 7978156, [id number] #### [facility] [address] [place] [address] Color (U) YELLOW Normal Yellow [facility] Comment on above: Performed By: #### 1 9505388, [id number] #### [facility] [address] [place] [address] Epithelial cells.squamous LM.HPF (Urine sed) [#/Area] 0-2 Normal 0-2 [facility] Comment on above: Performed By: #### 1 4486651, [id number] #### [facility] [address] [place] [address] Glucose Test strip (U) [Mass/Vol] 2+ Abnormal Negative [facility] Comment on above: Performed By: #### 1 4913823, [id number] #### [facility] [address] [place] [address] Hemoglobin Ql (U) Negative Normal Negative [facility] Comment on above: Performed By: #### 1 6893195, [id number] #### [facility] [address] [place] [address] Ketones (U) [Mass/Vol] Negative Normal Negative [facility] Comment on above: Performed By: #### 1 4706717, [id number] #### [facility] [address] [place] [address] [place].plasma/Lith ium.RBC (Bld) [Mass ratio] 0-3 Normal 0-3 [facility] Comment on above: Performed By: #### 1 3688168, [id number] #### [facility] [address] [place] [address] Nitrite Ql (U) Negative Normal Negative [facility] Comment on above: Performed By: #### 1 6234219, [id number] #### [facility] [address] [place] [address] pH (U) 6.0 [pH] Invalid Interpretation Code 5.0-9.0 [facility] Comment on above: Performed By: #### 1 8120723, [id number] #### [facility] [address] [place] [address] Protein (U) [Mass/Vol] Negative Normal Negative [facility] Comment on above: Performed By: #### 1 5528370, [id number] #### [facility] [address] [place] [address] Specific gravity (U) [Rel density] 1.025 Invalid Interpretation Code 1.005-1.030 [facility] Comment on above: Performed By: #### 1 9225729, [id number] #### [facility] [address] [place] [address] Type of Urine collection method Clean Catch Normal [facility] Comment on above: Performed By: #### 1 3043946, [id number] #### [facility] [address] [place] [address] Urobilinogen Qn (U) 0.2 {Donell'U}/dL Normal 0.0-1.0 [facility] Comment on above: Performed By: #### 1 2352035, [id number] #### [facility] [address] [place] [address] WBC Auto Ql (U) 1+ Abnormal Negative [facility] Comment on above: Performed By: #### 1 6607820, [id number] #### [facility] [address] [place] [address] WBC LM.HPF (Urine sed) [#/Area] 6-15 Abnormal 0-5 [facility] Comment on above: Performed By: #### 1 1228060, [id number] #### [facility] [address] [place] [address] eGFRon 10-31-2022 GFR/1.73 sq M.predicted among non-blacks MDRD (S/P/Bld) [Vol rate/Area] 43 mL/min/1.73 m2 Low >=59 [facility] Comment on above: Order Comment: Order added by Discern Expert. Result Comment: Lean Manager jin kidney disease could be indicated at eGFR's of less than 60 mL/min/1.73m2. Kidney failure is indicated at less than 15 mL/min/1.73m2. Performed By: #### 1 5573339, [id number] ####[facility] [address] [place] [address] RAD - Ultrasound Reporton RAD - Ultrasound Report [id number]#1.00C D:127 Normal [facility] Retail - Clinical Noteon Retail - Clinical Note [id number]#1.00C D:127 Normal [facility] VAS LAB Carotid Artery Dupl ex Ultrasounon 09-17-2022 VAS LAB Carotid Artery Duplex Ultrasoun [address], [address] [facility] [place] [address] Vascular Lab Report Carotid Artery Duplex Ultrasound Patient Name: EVON Mckeon Physician: [id number] Fariha Guidry MD, [facility] Study Date: 09/17/2022 Referring FARIHA GUIDRY Physician: MRN/PID: [id number] PCP: Christopher Wells DO Accession/Order#: [id number] CC Report to: Date of : 1950 Technologist: PRAVEENA Gender: F Technologist 2: Admission Status: Outpatient Location Performed: [facility] Diagnosis/ICD: Y09-Saangudtk and giddiness; I73.9-Peripheral vascular disease, unspecified Indication: CAD, PTCA, High Risk Medication Use, Vascular Disease, Diabetes, HTN, Hyperlipidemia, CKD-Stage III, DVT, MORALES, Obesity Procedure/CPT: 65265 Cerebrovascular Carotid Duplex scan complete-27906 CONCLUSIONS: Right Carotid: Findings are consistent with [...] cm/s Right Left ICA/CCA Ratio 1.4 2.0 67888 Fariha Guidry MD, FACC Final Normal [facility] VASC LAB Carotid Artery Dupl ex Ultrasoundon 09-17-2022 US.doppler Carotid arteries -[facility] Heart-Sandu feliz [address] DO Work Phone: [...] (bright red blood per rectum) 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 Change in bowel habits Chronic renal impairment, stage 3a Claudication of both lower extremities Colon polyp Diarrhea Familial hypercholesteremia Hemorrhoids History of colon polyps History of DVT (more content not included)... Normal [facility] Comment on above: Result Comment: [...] Bulgur wheat. Millet. Quinoa. Bran muffins. Popcorn. Dodson wafer crackers. Meats and other proteins [place]aw beans, kidney beans, and chase beans. Soybeans. [...] Cream cheese. Sour cream. Fats and oils Wiseman. Beverages Soft drinks. Other foods Cakes and [...] Document Revised: (more content not included)... Normal [facility] Medication Refillon 08-23-19 Medication Refill [id number]#1.00C D:127 Normal [facility] CBC w/Indiceson 08-01-2022 Erythrocyte distribution width (RBC) [Ratio] 14.0 % Normal 10.9-14.2 [facility] Comment on above: Performed By: #### 1 [id number], [id number] #### [facility] Laboratory [address] [place] [address] Hematocrit (Bld) [Volume fraction] 39.9 % Normal 34.0-46.0 [facility] Comment on above: Performed By: #### 1 1223868, [id number] #### [facility] [address] [place] [address] Hemoglobin (Bld) [Mass/Vol] 12.7 g/dL Normal 12.0-16.0 [facility] Comment on above: Performed By: #### 1 0622846, [id number] #### [facility] Laboratory [address] [place] [address] MCH (RBC) [Entitic mass] 27.9 pg Normal 27.0-34.0 [facility] Comment on above: Performed By: #### 1 0744305, [id number] #### [facility] [address] [place] [address] MCHC (RBC) [Mass/Vol] 31.8 g/dL Normal 31.4-36.0 [facility] Comment on above: Performed By: #### 1 8805064, [id number] #### [facility] [address] [place] [address] MCV (RBC) [Entitic vol] 87.6 fL Normal 80.0-100.0 [facility] Comment on above: Performed By: #### 1 5147479, [id number] #### [facility] [address] [place] [address] Platelet mean volume (Bld) [Entitic vol] 10.5 fL Normal 6.4-10.8 [facility] Comment on above: Performed By: #### 1 0283447, [id number] #### [facility] [address] [place] [address] Platelets (Bld) [#/Vol] 227.0 E9/L Normal 150.0-500.0 [facility] Comment on above: Performed By: #### 1 9650770, [id number] #### [facility] [address] [place] [address] RBC (Bld) [#/Vol] 4.6 E12/L Normal 4.3-5.9 [facility] Comment on above: Performed By: #### 1 6966290, [id number] #### [facility] [address] [place] [address] WBC corrected for nucl RBC Auto (Bld) [#/Vol] 7.3 E9/L Normal 4.0-11.0 [facility] Comment on above: Performed By: #### 1 4744624, [id number] #### [facility] [address] [place] [address] Consent for Treatmenton 07-14 Consent for Treatment [id number] D:127 Normal [facility] Lipid Panelon 08-01-2022 Cholesterol [Mass/Vol] 128 mg/dL Normal 120-200 [facility] Comment on above: Performed By: #### 1 7604388, [id number] #### [facility] [address] [place] [address] Cholesterol in HDL [Mass/Vol] 47 mg/dL Invalid Interpretation Code [facility] Comment on above: Result Comment: HDL > or equal to 60 mg/dL: Low cardiovascular risk HDL < 40 mg/dL : High cardiovascular risk Performed By: #### 1 1464063, [id number] #### [facility] [address] [place] [address] Cholesterol in LDL [Mass/Vol] 59 mg/dL Normal <=129 [facility] Comment on above: Performed By: #### 1 3398301, [id number] #### [facility] [address] [place] [address] Cholesterol in VLDL [Mass/Vol] 27 mg/dL Normal 7-40 [facility] Comment on above: Performed By: #### 1 0990284, [id number] #### [facility] [address] [place] [address] Triglyceride [Mass/Vol] 133 mg/dL Normal <=149 [facility] Comment on above: Performed By: #### 1 7791520, [id number] #### [facility] [address] [place] [address] Physician Orderon 08-01-2022 Physician Order [id number]#1.00 CD:127 [facility] Reminderson 2022 Reminders - From: Adore [...] patient was seen on 06/11/22 by Linda [facility] Retail - Clinical Noteon Retail - Clinical Note [id number] D:127 [facility] Ambulatory Visit Summaryon 0 06-11-2022 Ambulatory [...] EDT With: Linda Solorio CNP Where: [facility] Normal [facility] Gastroenterology Office/Clin ic Noteon 06-11-2022 Gastroenterology Office/Clinic [...] was previ (more content not included)... Normal [facility] Comment on above: Result Comment: Elec tronically Signed By: Linda Solorio CNP\.br\Date and Time Signed: 06/11/22 09:30 EDT Patient Educationon 06-12-19 Patient Education [facility] High-Fiber Diet Fiber, also called dietary fiber, [...] serving. ? Talk with a diet and psychiatric specialist (dietitian) if you have questions about [...] Bulgur wheat. Millet. Quinoa. Bran muffins. Popcorn. Dodson wafer crackers. Meats and other proteins [place], kidney, and chase beans. Soybeans. Split peas. [...] Cream cheese. Sour cream. Fats and oils Wiseman. Beverages Soft drinks. Other foods Cakes and [...] 03/02/2006 Document Revised: 01/04/2018 Document Reviewed: 01/04/2018 [email or web address] Patient Education ? 2019 [email or web address] Gastro (more content not included)... Normal [facility] Reminderson 06-11-2022 Reminders - From: Linda Solorio CNP To: Doretha Henry; Sent: 06/11/2022 09:24:04 EDT Show up: 06/11/2022 09:24:00 EDT Subject: Ambulatory Reminder Reminder/Recall Colonoscopy in 2029. [address] benson 05/21/2029 From: Doretha Henry To: [facility] - Reminders/Recalls; Sent: 06/11/2022 12:14:24 EDT ! Show up: 04/16/2029 12:14:00 EST Due Date/Time: 05/14/2029 12:14:00 EST Normal [facility] IntraOperative Documentson 0 05-30-2022 IntraOperative Documents [id number]#1.00C D:127 Normal [facility] Result Letter Officeon 05-30 Result Letter Office May 30, 2022 [address] [place] [address] EVON CORCORAN 1950 Below is a summary [...] letter prior to your next due date. [facility] [phone] Normal [facility] Postoperative Documentson Postoperative Documents [id number]#1.00C D:127 Normal [facility] Coding Summary.on 05-26-2022 Coding Summary. CD:[id number] Gh0 bWw+PGhlYWQ+FV5OYIOgZ28 txVJgzU6uA7FKOYkDEezmNL DIGAbOZlHmdiDvNH4dsEEmQ XJu IC8+PJ5sFQZfLqpilQDpy4O 4xCF3H05qsr9bBBnprVI3UV CnYzHbnnkez3dzsMx0HFtbX mluOyBt BTFkmT53YHY8tY24Kg75mEX wtBKmk1okjIv1MlMsPVVaHY O8qGhrAWxul6JnUYDeC90yr RKvw3X4 CCNgqTnjqMAqErPveVX3nM2 oLTwhvecev2fhxfdqAhd1fj 49zMLfx5U9zQS4U3OksgY5Y GJvbGQg EnytiUPYoB1bcnpia9mmoyq pZuGcOXRqEOm0LRh5IWTfvY kdMnGqWJ18XKU8BCPudqLpL 2FsLWFs eJlwUaR1n1W3Hf8CS3QVXht yT8RTXQMVIFxzjKB+PC90cj 07I6MwLbznGcq1YGDbKZF9p XR7aT8x WCBaLZyqa1P1eRW5F3CxuzB qna7sw4kcYEXuYBojC75ykP Wug9S9ARApfCM5JUSpdOmsS iBzaG93 Oyc+IYNbdSmae9LqWqbjp5x tb6vheLf2BbytUBYiwyNqpN yvDVS6o9VvTf9rCFSpfPM5b HS9eZ8k ZvVtDqI4FOclU745RgIvaQO fHlqnS85rY8UufAP+PHRyPj y5YKJmhRucTP9gT2DiXJFbb mctbGVm oYnbNZ7lOXRykvygCFVbeP7 gOWIqZ1x1CmKqOxC8BHejZ5 BmLVFbsponPh60rI0kVbKcH jM7ZBjd A9EaudG1LEVpeGVtYDldDSG 0V36au9O9IFMcKYUiYIW1qV T3pV5ljRubvrpjrATkiGvzp mVydGlj YVutGXdlR470IORjnVaqCdM vZGluZyBEYXRlOiAgMDMvMT MvMjAyMzwvdGQ+ZGEqCXS3l WxlPSAn eWTwVUpoVu7lbJpdpRahWE6 iFNVcxonaULBdgJ5yIHEurV FuwXdpAZ7yDDPeifkwp768U iAxMHB0 EHVlkLZnA1MjyK8hXqAsAZO iWYTxA5UdjQKjZZveO094UE haVeA8ZJDxmsBoA0XdUQZal WduOiB0 t0Z3Pr9Pd5AusvpfF9PnuRW jUpDwSluvHLw2F0IvAexgpI I+DM27VSJaQV72DKj0WSY4j WxlPSdi GTJxO2IirM3rZcIbFSMxLVU kOyc+PHRhYmxlIHdpZHRoPS iyQIEqLqGygFlrBE6gAt1oI GVyLWNv nCaetVWyCtKdp3qwOEQwJOs xKY4reGsuA3VyzID2JOAny7 g4Ll63M59jE8OvbOL+PGNvb GQ5hFT1 yT6vYaBaFmX8NEdjM644UvW ipQXbAssia2gup6okmJb9Xl S2EYHyayAyjKgsMHU7k0XpD r15K60l IHdpZHRoPSIxNSUiIHZhbGl trp4mcE8eHu8+RAZnhCF0yS W5qT9yQtWrXgD5WTfhS462C nRvcCIv Xaxfz3yot2kkkBs5ZcQcAVZ hcoNphCjcCEV2u8BnBi61B4 HzdXmmx5LtZxe1gp77mPUod 7Q9eCM6 L4SeWJPqtuknkLIplHifJL2 vOZNnhvxiUWGejL9xVUJzL0 p3WeXxKgK6TWnmP5HkihC6O GJvbGQg EDJtpWWXqZ6itunqq8zzuoo mQdZnDLTyHFx9HOh1QKNsjB bkXiAiBRA0TaT6FIU7jRSix H6jfPuo qkheaU1bJdm+MOI8yTFffFB MOJ5fHqzpcGH+IDLlMWM7bS kvNPtwNHYunM6nECCyT3d4D iAwLjA1 JHutB8AccuB3KVOdtXJlKMI hsSEEqZ3zokzap4dtyrttJc NeAPOmJSp0AXh1GJOcjGipP iBsZWZ0 FtH1DRC2kPGikU5hvBxhtqq llM0cOmz+UcqhqTniBJU8JP c6V6IxUvx9YGVlaFniZZ6py GFkZGlu Zj4tpGuexRmeRA4hGXJrjce pp983BbQol5aiBXMbiFGsYC nxENA7B46dk9J7ATVvTBNbT VJ7hMR0 hR5eeKbuoxlggUPipNhldzM lnJbgJQbqKDzxD000CRGktT liLuBdKFc9C4PpXsn4JNSge FwgZW2v yBFqROjqGm7niJdmeLvnEG2 bBNCxgikdj509BwXzv7ycSR TjgDNvEGqnEFY2E26nd7K8V CMwMDAw HIQ7cYV1jQ0htDpjetdjmWM mdDsgdmVydGljYWwtYWxpZ2 99JRUxpZidHgTglJa2Q2VyL dg2FSOw xVfoGF0wiAHdYVkhOr7elJi qeQgdSW4ePVYgevuet135Ir Oyk1zjLKRovGIiSNzjNXP6I 59mm4B6 GZGgFKQdWMF1lJM9iV2nbJv nbjogbGVmdDsgdmVydGljYW svJCalZ157ZINrlEfmAmViq GllbnQg HMbiNHn4T1RhSezudNI+PC9 5UBZrPU20rTHllJYrp3isbH c4OdOpNAQsEZM4xCdxBUakt 3JkZXIt P47lfWEae8I2ZJKjrFhiaPO fNbLguCP4pK8bLGiwuopvc9 johxipAqskw7baql94lF95V 29sIHdp ZHRoPSIzMCUiIHZhbGlnbj0 ieE5qJi9+AAWbgNC6sCF4oX 1bVIGtOkF4GPzgE522YiRsy CIvPjxj u7jfq1sojQn9QhO4ANCpbyM suBgiBES1z0GpPd81X91zTW dpZHRoPSIyMCUiIHZhbGlnb z3duB7u Ii8+VKUkwJR0aZH3vF9kAuJ aFuH2TDrfB932RtHdxIMcJi iaL01zU9AlyUC+LVXlUra7M CBzdHls RD8twFStOZknZy3wDIV8KpZ hZrUvACwkP6XsBMRzrcjllw ddxZG0OFViODCbxO60Up1dg DogMTBw fTTOxB5mccssv3jovhuhUlD kVAIiTIv0YSa5MOEhfMccFk AmBBD9IkN0OXD1oTQfoI9pu Glnbjog fA1hM9RhUEDnkiiaOl87zA6 iBnUeLzA9PZeuLjs+VFJVTV TNI5NESKJJRIWMWsQVNS05C S94cWJj y9A1cQI8Z5FaDRJyrwanzmj yqKN0QLFzPUOivH82hZYtED smKy1yq0Y1l778HUDvSDHas N93Pc9g yVlfVSYhtKVReP5ulpxia8y ginvuYuAoCZLdEFk6FTo1KV RrfDyaQcEcRPU8AnU4QKV7q EEhvQ6o aCurspgysM8rOsd+MDQvMTE dPDj3LJqraOG+QAIzZDI7cJ wgAGojPELdxV1tXUJnW5c2V iAwLjA1 GTiqT7QiHKWnetinUb51oJ6 qGzOmUsC5IZvgJ9ZkeeJ7RG XawDWkJRknGUU3E50eg5I0D CMwMDAw NST8vRQ0vJ5zfEghlfvuwZQ mdDsgdmVydGljYWwtYWxpZ2 46IHRvcDsnPjcyIFllYXJzP R54CE81 ePYqr6X0kOW4F5GgGHAqsau ytmyesWY9REFiUUMgpE31yF VeAVefPt8ie0K1x703IPHkG DUwaW47 Gw6zuDklDVGbmYBNuT9ujul vy0bkfjisDqYaDHWhXMr7JM m3ROWiiEkqPcUeNIP6NeE5W JB6tCGp dG7liAgdstgzkA6aNfq+RmV dVGgjAG90ZS51sSAuq1E0bA U5K7SyMHEjxqhgnlygfYF8L DAuMDUw qA89aIBsPAaaRu2ju8B0j35 5BEOhQIIteZ73Oq4nlSgtTL CpaLFIlA9zrbyuc2mwgfgfS zAwMDAw LFm3QFv8HTJtlQziLdKyFPF 7PeH1UYE5dFOnmA7ncQsfik ddtE1zPpb+D1G9uHI8pCLlg DwvdGQ+ RJ30sh44E6UeUgacUcs8TYM yWNX3sIF6bL4iUDUrYVeki0 S2qGP9R0KfvtUqhn0rt9rvV XBzZTog O95lbWUfb6W2RSBhhMV9CNU uhLapUxUvcA38Ity+PGNvbG cdt3CtJukbu8ddz4rcrOi2B jMwJSIg unJflKwiITH1a2SnGe75H18 sIHdpZHRoPSIzMCUiIHZhbG tzpx5wpV4cSc2+KGLceLN7k MG2hP1v JmAkOfJ1QCasF621OeOaxEH sFrmgs8zlx7qlkLd8RrHxCA EdzxQvtHsxVXW0i4VwWx32G 2NvbGdy r4JbBwg9rq45eUSfr4I4aFB 4Z6HhTOSbsjbkcFKvtFdvJJ 9vYPOxvmizGIZjjD9rYQZzI 6t9PfYn QzS5RWndU8IplvM7ELTnvCS zQNEbuZLPsB1hwfrub7zoiw rnYkYqIKFnYSl4KFu7RMIir WduOiBs NJB4ZbX1MYQ5vAWmxX4tvAm tbsmaiK9mOfl+ZAk3h0evlE IjPM8goLZ5II30MQ77nOIfq 0S5lYV1 Q8XuLALofzzlgfzogBY9LBN zSGEmcM66Na0wvEspRa7fAY OsNYI6AYBkwEWiA2DfuQ3mZ iAjMDAw EPHgJ6VqxSDpYWtsC658OKl oTcI8XLFaweQyE6YhGHSmkV cqLnS3s6S4Hx2HIL60RX11V Y04oJFv l3H3cOG1I1WuDSJuvbvckbw wjEY9EVIoGMTjlR49Md8xgD wiTe2bUUUmXBP7ILXozLXmH 6GvjQ1t UbJkAIWzALWmW5VzuUZhEHp jL178HXggNoP3ESLxohRdF5 EnBOVnnHrjGyN4x7C4Kk3CQ o52JY31 PC23pQNjj9Y2lKK0V0TsWDD gzzmngorkpCM8EXLmYWOgfQ 80Go7msOekHk2lQREgKMO3D FRpbWVz W9SujO7wMeKeSWXeBYIdQ7F ohBWbODpoL696MSbiAaB7UQ PlcfXaZ4WbIAFvwTctPlV9k 5S8Qz2H TMundnq3Y7GjOdcbyFP+PC9 7RNNxPH78aMRsaDOif1cjeA w5WiQoPKVpQTW4pZoqFOrxs 3JkZXIt Y29s (more content not included)... Normal [facility] Main OR Intraoperative Recor don 05-26-2022 Main OR Intraoperative Record IntraOp Document Type FT Summary Primary Physician: Luis BENSON MD Finalized Date/Time: 05/26/22 08:45:38 Pt. Name: EVON CORCORAN /Sex: 1950 Female Med Rec #: [id number] Physician: Luis BENSON MD Financial #: [id number] Pt. Type: O Room/Bed: / Admit/Disch: 05/21/22 [...] Johnston RN, Esha Diane Role Performed Anesthesiologist Doorperson Or Luggage Porter - Primary Staff - Other Cleaner Greaser Time In 05/21/22 13:14:00 05/21/22 13:14:00 05/21/22 [...] and tissue Entry 1 Skin Integrity Intact, [place], Warm, and Skin Abnormality No Dry Outcomes [...] of positioning (more content not included)... Normal [facility] Consenton 05-22-2022 Consent [id number]#1.00 CD:127 Normal [facility] Discharge Instructionson Discharge Instructions [id number]#1.00 CD:127 Normal [facility] Consent for Treatmenton Consent for Treatment [id number]#1.00C D:127 Normal [facility] Endoscopic Procedure Report - Otheron 05-21-2022 Endoscopic Procedure Report - Other Patient: EVON CORCORAN Age: 71 years Sex: Female : 1950 Associated Diagnoses: None Author: Lius BENSON MD Pre-Procedure Procedure Date 05/21/2022 13:30:00 [...] Return to activities:: After 24 hours. Normal [facility] Comment on above: Result Comment: Elec tronically Signed By: Luis BENSON MD\.br\Date and Time Signed: 05/21/22 13:31 EST Other Comment: Soila ariza Attachment - attachment storage system not supported [id number] Can be viewed in source systemMissing Attachment - attachment storage system not supported [id number] Can be viewed in source system Inpatient Patient Summaryon 05-21-2022 Inpatient Patient Summary [address] [address] [facility] Clinical Discharge Instructions PERSON INFORMATION Name: EVON CORCORAN [facility]#:[id number] PHYSICIANS Admitting Physician: Luis BENSON MD Attending Physician: Luis BENSON MD PCP: Christopher WELLS DO, FAAFP Discharge Diagnosis: Diarrhea Comment: PATIENT EDUCATION INFORMATION Instructions: Colonoscopy, Care After Surgery Marcelino (ARLENE); Colon Polyps Medication Leaflets: Follow up: With: Address: When: Luis BENSON [address] [place] [address]. [address] [place], [place] [id number] Züm XR (1) Comments: office will call for follow [...] Q-10) By Mouth every day. Comment: Normal [facility] Main OR PACU I Recordon Main OR PACU I Record PACU Phase I Document Type FT Summary Primary Physician: Luis BENSON MD Finalized Date/Time: 05/21/22 15:15:56 Pt. Name: NILOEVON/Sex: 1950 Female Med Rec #: [id number] Physician: Luis BENSON MD Financial #: [id number] Pt. Type: O Room/Bed: / Admit/Disch: 05/21/22 [...] By: Maryellen Bonilla RN 05/21/22 15:15 Normal [facility] Main OR Preoperative Recordo n 05-21-2022 Main OR Preoperative Record Holding Area Document Type FT Summary Primary Physician: Luis BENSON MD Finalized Date/Time: 05/21/22 12:19:52 Pt. Name: EVON CORCORAN/Sex: 1950 Female Med Rec #: [id number] Physician: Luis BENSON MD Financial #: [id number] Pt. Type: O Room/Bed: / Admit/Disch: 05/21/22 [...] comments below for reason Last Modified By: Firtz Dover RN 05/21/22 12:19:50 General Comments: pt finished bowel prep at 1000, per patient nothing to eat or drink since finished prep MSRN Finalized By: Fritz Dover RN Document Signatures Signed By: Fritz Dover RN 05/21/22 12:19 Normal [facility] Monitor Recordon 05-21-2022 Monitor Record [id number]#1.00C D:127 Normal [facility] Monitor Record [id number]#1.00C D:127 Normal [facility] Outpatient Surgery Discharge Instructionon 05-21-2022 Outpatient Surgery Discharge Instruction [address] [address] Patient Discharge Instructions PERSON INFORMATION [...] Follow up: With: Address: When: Luis Dow [address] [place], [place] [phone] Business (1) Comments: office will call for follow up Pharmacy Information: [facility] You may receive a survey from [employer] asking you to rate your care experience. Your feedback is important and will help us understand what we do well and how we can improve the quality of care we provide to you, your loved ones and our community. It?s an honor to serve you. Thank you for choosing [facility] HERE ARE THE MEDICATION CHANGES [...] Some feelings (more content not included)... Normal [facility] Patient Education - Texton 0 05-21-2022 Patient [...] that are (more content not included)... Normal [facility] Progress Note-Physicianon Progress Note-Physician Patient: EVON CORCORAN Age: 71 years Sex: Female : 1950 Associated Diagnoses: None Author: Nahun PIMENTEL, Vinod Greer Postoperative Information Postoperative disposition: Postoperative disposition: To PACU. Optimetrix number: Optimetrix number [id number]. Anesthetic utilized: General. Physical Examination Vital Signs [...] meets criteria ( To home ). 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 / SNOMED CT 72884859 / Confirmed Change in bowel habits / SNOMED CT 852691420 / Confirmed Chronic renal impairment, stage 3a / SNOMED CT 5196645317 / Confirmed Claudication of both lower extremities / SNOMED CT 695795435 / Confirmed Familial hypercholesteremia / SNOMED CT 2391212452 / Confirmed History of colon polyps / SNOMED CT 1257145442 / Confirmed History of DVT in adulthood / SNOMED CT 4153889068 / Confirmed HTN - Hypertension / SNOMED CT 2268798363 / Confirmed Hx of colonic polyps / SNOMED CT 8503803887 / Confirmed Internal hemorrhoids with complication / SNOMED CT 7858622799 / Confirmed Mild nonproliferative diabetic retinopathy of both eyes / SNOMED CT 470791691 / Confirmed noted in 08/21/2019 Diabetic Eye Exam. added per outpatient CDI policy. Non-smoker / SNOMED CT 40331692 / Confirmed Type 2 diabetes mellitus with hypercholesterolemia / SNOMED CT 126576357 / Confirmed linked DM with hypercholesterolemia per outpatient CDI policy. 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 Normal [facility] Comment on above: Result Comment: Elec tronically Signed By: Nahun PIMENTEL, Vinod Greer\.br\Date and Time Signed: 05/21/22 12:46 EST Giardia, Direct, EIAon 05-14 G. lamblia Ag IA Ql (Stl) Negative Invalid Interpretation Code Negative [facility] Comment on above: Result Comment: Perf ormed at: [address] [id number] PhD Armin Zaldivar Performed By: #### 1 [id number], [id number], [id number], [id number], [id number] ####[facility] [address] [place] [address] O & P EXAM, ROUTINE, REFLEXo n 05-14-2022 Ova and parasites identified Concentration Nom (Stl) Comment Invalid Interpretation Code [facility] Comment on above: Result Comment: No o va, cysts, or parasites seen. One negative specimen does not rule out the possibility of a parasitic infection. Performed at: [address] [id number] PhD Armin Zaldivar Performed By: #### 1 [id number], [id number], [id number], [id number], [id number], [id number] ####[address] [place] [address] O & P Exam, Routineon 2022 Ova and parasites identified LM Nom (Unsp spec) Final report Invalid Interpretation Code [facility] Comment on above: Result Comment: Thes e results were obtained using wet preparation(s) and trichrome stained smear. This test does not include testing for Cryptosporidium parvum, Cyclospora, or Microsporidia. Performed at: [address] [id number] PhD Armin Zaldivar Performed By: #### 1 [id number], [id number], [id number], [id number], [id number], [id number] ####[address] [place] [address] Coding Summary.on 05-12-2022 Coding Summary. CD:[id number] Gh0 bWw+PGhlYWQ+BQ3ZZNPoG88 zhUWywT7SX9gXPB2QEGAOHN UNSC0HBU2mwEC1YMrzY8Ocx iAv FdcuvWXnPY91EWe3SIW3jWj yQMpayB1mpQDwY8h2ZxPuIR 76uZ89WZceSCXkKtW0ToRlg jsgbWFy T4jxQvUsdVEeJwo+PHRhYmx lIHdpZHRoPScxMDAlJyBzdH gtPU8zSd1bRUJaRDZegEyfo HNlOiBj c2jsVNGuOMreDZ1elWwuD7U nkBC2RKDsq2b3Uq07uHM+PH XbHMH7vJdyIZfgx752ApKno 0fmIDE0 kIPrVQofGEG0F53di6A9PGW bOEHsEEZ2sZJ4jF7qmYhdcv glY8NpqPLoPfJ6ZUI6jHTwi I6znPsz ogkuvL7eOkz+Q72GNJ7NMBP VJU2ZHwg9F7BaNxjhlXA+PC 16FRAcVY11iGWrkRIqu4agc Bq4CnMl GABcXGR7pCmnSQvcb2RdUUX lD71nzFByr4T4LFVstJozwC XzUtEirLI7nW1sOWpxzbabq 2hvdzsn Tqfhf1zbfe42xM00F53aMZe tMRWzUEU0PLZzGUMreSlurk 1coV0jYh9+BSfam4nvg7hol Jn5DgSl YPIhpfTmcBoxGKZ6w0PvWm7 9J9OzaTrvf9XoBiw6xv56wL Pie9H3cUR8IBkmCJYrtI9vF WxlZnQ6 ACEhAeOvgT21mUEcEHogIk5 mrKirtErwKC1pVHDikgljZP TxiG2xNFWgzOIrnYugCA4aU TBpbjtm s037WwRrXAB7TJFlrWSoM1U pmR3lLaMtURTzLMNhS4HubV OoDUucL718LNimKgE6NVWsb kRfT1Jb NOKggNhyFvR4p1F0Pb3Zb7G wbcbmYDB1OEahZWAySzL1Kb XvYmT1Q7GgIur9DLRsjFlhQ E0lF4Hi BEGhvxrndqnmpUL8CRVqIWM dlZ87iOKhJJnfBo5of2P6h1 24GCEtYVFxuB45Ex6xxZypS TBwdCBU zQ6hmuwig4axhbiyJdNaMOC jYEj2SMx1FMMkzXycCbYpMQ V0DvN5HDE9jZWriY5jpOrjf bwqtE5p Oyc+G99xgW0aCJW8ARV8eqz cXLWpxjUiZZ81UU35O1XmKk wvdGFibGU+PGRpdiBzdHlsZ W3hWtDd c8nzx1TrRFjgJ8JhNLHfHSt eFqp0CUOuNYH4kAH2uD8vXP TrQFnfm6N0pMJ8G7VdeyDhy h4qv8uf FBBvNEdtQ83ncOLra5A6BGA rlVH4LGMqrYpmKoJbnF43Ye c+JVZjkHadf5YwFfulj2mwj 0qztFr1 JySkEZJbnfXteOzyPTN5d5V dUm30I66pDZkvQOSjLLBjBY DzEVCviPejlb9jjQ8bIi8+P GNvbCB3 uHT8zO0iSOEiPtY8RAilF46 0VrHgyJBpRyvsh9qgc3vzwN l0LiWrZDZsgyNpeAcqLLS1o 4DfAi31 Z31xLRjpDCZpNVXsYPWcSSW byYxpmh2cbM4dYt3+PC9jb2 famn70pE96vJM+ELYkISC3i WxlPSdw LXBbkF9eLKptTrE7PTVgUgJ zcI63eJSdPPuhDx4bwGhiwP ygGZ7lGEKaadwil093SiTsu 2xkIDEw hEHhZAyjERG8L43wf6D8XUT gFIWvOVB5lHI0qU5gzAeonl ogbGVmdDsgdmVydGljYWwtY RrzB968 IHRvcDsnPlBhdGllbnQgTmF vTIy8F1PkJtd3JILghGshLN 8uzTZxECuyOl2ydJucuOyeI L9fEFOy aplvt375PwKcs8nnOGRtbPI nUSnuWBA9J47pm9S6WYVgNZ ZrETG9uFG1bS1xkAlixijyp GVmdDsg cyZuqJkgOQxjJMvqY329RDL wvQlnBsGafsZkXUYgcQC3SY 22CW14rXEon9V7nFF7A2DlY GRpbmct cxiphAZ2ZRDdDAQyzY91Ou1 jdQnjOp4uIMZkZCV7NJIzsI OaM0ZppW9tXlTzSQYoYDNqK 3RleHQt RTtkJ023AOdrSpS7EPTpipB dB9SmKRWfwGmjLgB9h1U7Uj 9UN2V0ZS75NV55cZFxx0C7u QA1T9Mn CVJandnwlwogrKM5UKNkGKZ ruF87Dp1bhNcqXm0qXKCnAK Z3OVGerKVuA6QqdQ8qIaSwA DAwMDAw B7ChtLOxCTpsI218PIipMwT 1FDNmyuDtF7XnQZAjxFxmPz J7n8N2Yj1ACZn2CA21OO14k DLpr6Z7 sZX0R7FnAFNdlppgovavpCT 0NORrSGKlxS42Ew2lvTluAc 7bAYOeQQI4IWMmqYHxZ8Lqz M1cFtSq TBRqGUXvB2HerVIoDUsmT34 9DAiqGiN0WYGeitCzW1HsTN DkhTgkWeX5k2Y4Zl0YYKJyS O38VHQ6 sWM4SE15TT25V6MpHsqkqSB ibGU+PHRhYmxlIHdpZHRoPS jmRXDmIgMjlPbpAG1eHx2jM GVyLWNv nRilyLQtHtCwr0ukBJPeWSe vIK8ieStyP5HcqIZ6WAAkc8 h2Yo51C34rV5PisNN+PGNvb DV4sRV5 xZ0bAtRzHaB4SEhzD945HtJ glARcAmebn8vlv0eimJb7Id E9RPBqukEmpNriLZY5u9WjN p14P72l IHdpZHRoPSIxNSUiIHZhbGl mvk0muN0yXv9+CMDjoRR1wS C6fR4hVyVaTyR7BDpaY022C nRvcCIv Crkhy9tvd4mdoSb2XpNhIQQ pehAdyZtgJNZ5c0QiAq78F9 WwpKyzw0EqFkl4pc23jFNhs 2B7oKC8 V7NuNAImnhsgnFKdeYanRC0 oINHgzsxbBZNgmN8mLIJtR9 v2OxFnWtD4ZZbqO8KucuK5G DEwcHQg HUffMPP0I36yx6M5FVUlMAX eJWM0hRO7dG0tiCzzrxfkxI VmdDsgdmVydGljYWwtYWxpZ 246IHRv oNnxKNFvcO3jHCTvaHKyxYx pZI6tPBCfnrwaMtOACR0QH1 lDPghiH1JDMF0nZEdniAR+P HRkIHN0 aCpdSHiwABWqvE2qRHPuY0u 5GeFsVdM5XHtcS1QyRJUwld bgAz84vA1aQvTnUqS7OPmjD 4QqouR5 PURjgAAdKLjmNKV9M85ie7N 1UAFaBKMtFRP9uME2rE2isB lnbjogbGVmdDsgdmVydGljY WwtYWxp N887AGNvzWgdYlU5UzIpKmW 9UWS7W6PySpq9XOQkrEioIR 2azRFlLHlgGl7inRakiDfpL Q2cWWVl wqbuVUBdlH9mHIEnkFPgsMz mVV8yACDiyfock183PwDwTK V4CYVaaXSrE9GsdO3yJbXyL DAwMDAw X1CuwNUvORbqN476NKnvVoM 6JPMjrcFtC7MgWVHrrRhpVz V4k0B9Vx05EvXVUZLhvfkda GQ+PHRk FCC7eWbxGKlsFMMjkX0iXCD mX5e6GwEqDrS4EPnqF1ItDS HayqxiTq92qK5pHuJtOhL2Q GvoB9Rf byK5ACNisRYsHKclBIM9C56 lh4O7SBWmMQGwNWI0aSW1gU 1hbGlnbjogbGVmdDsgdmVyd GljYWwt PHcpX420BXBnzJczNoLerUR sZTwvdGQ+QGNdSUN8fLbvQY ieCCMqzI3nNILpB0d5IpUhT fT4WZxe Y8UuVDZnssliBd66nA5rDgG wCvQ6MQrcV4GjikJ3UEJakX RsGOuhOKM4N33qp1M9HOReZ DAwMDA7 iNY3nU6sjAhbcuvwkSLbyDs lcyDvbFcwZIchHZerM613ZY KcuPkkAszwIrJBbz4tBM2fV jwvdGQ+ JZ65wz30N6KbBidqOnh6XMQ qQNA7tXN3lY0wQSPgMTxbi2 J3cKM3P2FtwaLwrk5iv2wtP XBzZTog H58urYSoh5R7JSGoqJF2QYH dqYooPiHnhI36Ilx+PGNvbG ejm7HpSfaej3ffp3bzsNv4N jMwJSIg rdZtgKziTZK3f3EzFf94J65 sIHdpZHRoPSIzMCUiIHZhbG wflm6ldM8iRq6+VXEbpPT2s WK2iD2y ItNkGlW1IHpdH285QyEotKT yDiljm7mcs8jfyHd4YhIvMT PcjhZumWnfJRR2i4DoPr28O 2NvbGdy q0QhSbv5jc04rTHii6Z4xAM 5K8JqRQPxyfclkKRlkXreJM 7kWQRntlocPAGceP0lMERnR 6n9SxGc HzZ9ALloL7YsmjN3VFNnwNG wQDPztTMCzP9ddcafj3uwxe jbRpIuVYEeCUz4SMs7OERst WduOiBs NOW1NyK8JET7uUTrhM7auZs gkxshqG5sFar+WNf4i5ewnH NlYO9vrOZ3VE10ZT71uCFtc 0T5wSK4 T6FoYIZwnmnqxugrzBT0HQU jPRIqgI74Xk7uqXyjJu2gVA JmUZC3TBYhkYPwX1ZpeD6iO iAjMDAw YOMtB3SfkYTfQRikW829RLq bZjZ3XEBqqrMbN6QmBHUluQ laJsK5r1E7Uy8TPJ13DS70N I87rXOe l2Q8sOO7D4AyRWOwiksvjbu upLA9FNRyAWDnoE56Yx7btY jeNg2tTQZyHXA8PXQtkZVtL 9BbaI9b KdLcDODyFXRjY8EtvOKnQUy gB984YXikMjQ0QFVwdpPuW4 WjEVBcbBmfVlK9x1V6Ge5ZB h98ZQ99 AJ29uWOtl4Q1mTC0S3XqBIY oormaqtmmoNF7GSAfBKAoaY 61Gc3ooWkhZu5fWXHzXYU5X FRpbWVz P9ZilY1lXkWnKJVxUELkD8G riIPzNVgeY798JFmnPwF4HW NpurErN6XdPXTjgIhxFwD6f 7W4Bq6V SWwcbmj8X7NtYzefrTT+PC9 8CRWdGZ16oPSsiHHyu0vvvK i6TdUgRCTjZIK1rZqjDThbq 3JkZXIt Y29s (more content not included)... Normal [facility] CDiff PCRon 05-08-2022 CDiff PCR Unable to perform te st due to consistency of stool. C. Difficile testing will only be performed on diarrheal (unformed) stool unless ileus due to C. difficile is expected. Reference: Clinical Practice Guidelines for Clostridium difficile Infection in Adults, Infection and Hospital Epidemiology July 2009, Vol 31, No 5. Normal [facility] Cdiff Specimen Acceptable Unacceptable Normal [facility] Comment on above: Performed By: #### 1 [id number], [id number], 58432723, 55759644, [id number], [id number] ####[facility] [address] [place] [address] Order Cancelled YES Normal [facility] Comment on above: Performed By: #### 1 [id number], [id number], 18439140, 18027777, 56362725, [id number] ####[facility] [address] [place] [address] Enteric Panel by PCRon 05-08 C. coli+jejuni+upsalie nsis DNA ARCELIA+non-probe Ql (Stl) Not detected Normal [facility] Comment on above: Result Comment: Test ing was performed utilizing reverse dev technical mgr (RT), polymerase chain reaction (PCR), and array [...] nulcleic acid test. Performed By: #### 1 [id number], [id number], 12481669, 53321356, 80642966, [id number] ####[facility] [address] [place] [address] E. coli stx1+stx2 genes ARCELIA+non-probe Ql (Stl) Negative Normal [facility] Comment on above: Performed By: #### 1 [id number], [id number], 11783191, 44070533, 64298147, [id number] ####[facility] [address] [place] [address] Enteric Panel by PCR Negative Normal [facility] Enteric Panel Intrl QC Pass Normal [facility] Comment on above: Result Comment: Test ing was performed utilizing reverse dev technical mgr (RT), polymerase chain reaction (PCR), and array [...] 1 and 2. Performed By: #### 1 [id number], 77843749, 34846180, 04816363, 34563190, [id number] ####[facility] [address] [place] [id number] Norovirus genogroup I+II RNA ARCELIA+non-probe Ql (Stl) Not detected Normal [facility] Comment on above: Performed By: #### 1 [id number], 64964576, 29651664, 68447945, 07638785, [id number] ####[facility] [address] [place] [address] Rotavirus A RNA ARCELIA+non-probe Ql (Stl) Not detected Normal [facility] Comment on above: Performed By: #### 1 [id number], 18512228, 56840594, 54393558, 90794996, [id number] ####[facility] [address] [place] [address] S. enterica+bongori DNA ARCELIA+non-probe Ql (Stl) Not detected Normal [facility] Comment on above: Result Comment: This test result should be correlated with clinical presentations and medical history by a healthcare provider to determine its clinical significance. Performed By: #### 1 [id number], 79618076, 53343387, 97830475, 20594728, [id number] ####[facility] [address] [place] [address] Shigella species+EIEC invasion plasmid antigen H ipaH gene ARCELIA+non-probe Ql (Stl) Not detected Normal [facility] Comment on above: Performed By: #### 1 [id number], 83857813, 56188672, 13506678, 69690597, [id number] ####[facility] [address] [place] [address] V. cholerae+parahaemol yticus+vulnificus DNA ARCELIA+non-probe Ql (Stl) Not detected Normal [facility] Comment on above: Performed By: #### 1 [id number], 52513371, 84408919, 43474599, 34116262, [id number] ####[address] [address] Y. enterocolitica DNA ARCELIA+non-probe Ql (Stl) Not detected Normal [facility] Comment on above: Performed By: #### 1 [id number], 53425249, 04143102, 24783227, 89911130, [id number] ####[facility] [address] [place] [address] Fecal WBC Lactoferrinon 04-17 Fecal WBC Lactoferrin Negative Normal Negative [facility] Comment on above: Result Comment: The semi-quantitative detection of elevated levels of fecal lactoferrin is a marker for fecal leukocytes and an indication of intestinal inflammation. Performed By: #### 1 [id number], 96836871, 44997871, 36840507, 08778241, [id number] ####[facility] [address] [place] [address] MICRO OTHER TESTSOrdered By: Cynthia Case on 05-08-2022 Fecal WBC Lactoferrin Negative (05/08/22 9:00 AM) Normal Negative [facility] Man Sero Coding Summary.on 05-07-2022 Coding Summary. CD:[id number] Gh0 bWw+PGhlYWQ+HE3YTVImR48 jbSWvaS8UR9uPYH0KANVEXI GRYK2ONV3mlFW5BUdpJ9Glj iAv VsptpJZrGV03RJz7LSP5iIp pCKkhdV4sgBAgY2u9JeGfAO 42xI42FOspQXItShB9QvNkz jsgbWFy O4bcQqAicBStEcv+PHRhYmx lIHdpZHRoPScxMDAlJyBzdH czJW5gSh6cQQQoTOLbnZeup HNlOiBj f3rqWNDqPTkvYZ3rdBxbF4J crGX2XSZqn8l2Cm28uXJ+PH QvVFQ6iMukISzjz681UhHac 3cyHYL2 nGLxVQkzVSV5N14zp1H3GPQ tLRFyAPC6fJL2gK9pwKplgw imR8KqvZTrOrO6TMJ5pBCnn D3neTip cliosO6uJtj+D63EHT1SHXA UOX5EVxy9X9KdWkkoiVL+PC 64NWUfGE09wGNuoSLiw5hap Yi5AgAf YJZrSHK8zFkbVDkfg9TjOUV fW30reKTwe4Z2QRUcgZkdtD VpNiVigBM7oZ1fROnqcmpxe 2hvdzsn Gjubs3ohnp53rN24C68nGCr mURXsOAY3YBCiJQByaKlyhs 6ahH8zWt1+GOfus6ntx7nkj Nu7OjQt VLCdgeEfyIlwNIB1c7LiMf5 2L4CltPvvb0CeVpv3hg98uL Unw8L7gZP1ASdwRGYhvQ7nX WxlZnQ6 LLBbNvYkuZ25jWSfKGgbMy3 hdZlhgFazHJ2aCMOeqhsbJJ LgwA4aRDSwwPZeaZavZX4fH TBpbjtm l451ZbRoAEF1SDNwfRXrQ4T hdE2sSaSvEPRgTYJyB0GdaA VtAEkzY469YDwvZjE6GFCul qIcS3Kq XRFivYbgGyJ7w8O1Lf9Bj0E rjaxaMYZ3IMdqTBJxOtCqWg CsYaU4L7WyMzw6SKDkhYvhY D7rU6Qh WXGmzpbhwjtqqHM5TXOmSKN keQ42aEYwFSjkOq6kp8R7n7 83RDQvMIPssZ24En1ggYvxG TBwdCBU xL3xmnehf1trfeueUcSvSKS aXRw1OKa7XSUujWonDlYqTY A0VhR4BPG5oYKywB0ltAtfb kzjrB1x Oyc+U83vyE1pCNT3CAM1evg xFJCcwjBiXW29KW64L7OqJp wvdGFibGU+PGRpdiBzdHlsZ D8mSyZy t4vyc8XvINgoM5BzZRBxGYh oLnl0WVIcRBX6hZN8dF2zUX MhZRden3L5gEZ1X8ArzdCpo g4yp3cg GOHaJKfzK60leWGeq5P3EUS yxGT7LOYntMxrCbNviE08Es c+UGTptHkxb0KnIxrfc6gnl 2yumJk1 ImVjANSqlsSaxKndELJ6w6O aNb08N97hJDxxGHIrOJEiUV CsLTRrbYyyou0zlC1aLv4+P GNvbCB3 eDE7iQ7rHNKiMwA0EKtrY83 2FrBhcPIeIlptc0gnc3junB p3QeXvRASneoZmjQhwEMN7x 7CuDi98 A46wWXipGFVmEAEeMXQdMHY jhHffne6yiD9vEo6+PC9jb2 vwca75aI94aFV+HJYpXSM4b WxlPSdw EHTwcE7wPCcmPuF5SYMyClD azO18nCEqFCqhBb2hcIhjrN oyDB1tWKTpnjryi585SqNwu 2xkIDEw dCHyVKvfQSB9C73dq7Q1UDI jVRNzUSF2jKL7uB8plJqidt ogbGVmdDsgdmVydGljYWwtY DkuK578 IHRvcDsnPlBhdGllbnQgTmF zOJk8Q7CyMta4IEJutMflRX 4pyFSoKNmbUi8fqAaplIwyS S7dBCFk jerkr249CoJkv6dcHHVbbDY xPDorNNE6P73oy7N7JVAbWU UcOOR4fXI0qC6rcSptgnwfa GVmdDsg ydHqoEnaYXttXAnrQ757VDN pfDumGoCddvEbOGHxsRD0TZ 33BE46eWZax9H0zNL2J8QmK GRpbmct sxnriOD0IRSwVNNevI21Fo0 fpTmoEd9bSSGmNMI7JEAkzS ChR3CzcI3rCfJkDMNfLEOjL 3RleHQt QCnuJ487SSgxVrG9IGRvewN zE5NmRTProYmdPbE0i3E0Og 9AX1P4HR28CJ50yCQzd2A6y VI3Q3Yn TWOldijadxdtjSR0WOJvWKG moU92Kq7nkDfcJi7wCXPzGN M0DFIzmNDkK8JisS5dJxSgI DAwMDAw M4QzlOUxFKjbL930XQnrPqR 8EYQbbmLkB6RvRHFlsJbjJh V7m6T6Rc7VMUe8WB70MI72q YCrp4V4 cIP6Y6DaMAJsieglvypdiVX 3CVSmXCHmfV73Cs9rfPxnZx 3bHLNnGYF6VFEdsDGrY7Dzp F2cOoMz CAVaEXEjR2VtyIArABqwF27 0DWcyXkV1BSCaoiQjF7MjNJ QlmUlxJdC3m2X3Mx6TCADjP C32BVE2 iPX4CP20QO57M2DrRkjuiXU ibGU+PHRhYmxlIHdpZHRoPS dvDNHeAwDggOrsKO0vDe2nM GVyLWNv vIfubQOqMrJyi0dsMYXgLVg pGP7oqAdxQ6MqlES7HAEqx2 o9Yd10Z14kQ5DwbZE+PGNvb UI5vLT5 sB4iTwZtAfB2XOwmV596HfA wzSCyKnzxe5jbo3epwYb7Ma S8VQHkjbYwqHpfCSO9u1JbR j91U54n IHdpZHRoPSIxNSUiIHZhbGl ugd5asR2aKf4+UDGsoFI9rX C9nK4hAzYsSfT6WOuuU461A nRvcCIv Rvplx7hal7ncrKr7GcVyLLO cipCjtNgzGIV7y2MfXp04R7 JtvWqsd4IsMvi7ei53eIXnw 5G9oOG4 Z5QoUYBjioqlbIMwdVznXB9 bQLBzehdeFVDjlD4fXLQjZ4 e8JzJdAhW2BSxeH4WznyR9O DEwcHQg TUphZHB5F95yh2M2YBJgZHP gEME0mLL6qG4azBpkmssrkT VmdDsgdmVydGljYWwtYWxpZ 246IHRv sQagUYPfmA1nBOZefKWzsGp uNU1tNQZjqpvuGzJHFK7BK5 pWVchnT9VDIB6mRRgusWL+P HRkIHN0 yBkaBQwrNQUuzJ7bYOMwV9d 5XaWjWcP9PCmnE1ZcURGghh woFd35dN4uLpSuJdH1OSkgF 1UekzT4 LWLawZMaJSlpFJO4A73rq3E 6YXJzVDUyYZT4aZE7kC2eeW lnbjogbGVmdDsgdmVydGljY WwtYWxp A520KHHgqUxtYfZ8YpAySeZ 7EXW5A7NrYzz4BJLexZnlVB 8zrZUjUBpkPm2kkVckrCtcD N9jZXVs xoluKXRqiW6pGNZwnTJkiQb uKC5fDWRatccey397ZgHbOP C6LHHnxIDcV9LweL1oLcHsV DAwMDAw X3TqzGCqBVnhU526DHdtNeU 0XZJiosAuJ5AzYLSmpSvgWe K6a8W9Io13XrUPVVNueaszn GQ+PHRk HIC8hKlnRYbxQAIqsQ8uYWE pB2p1LiYwJcT3VYmoK0LmJL JngtsfLj11yV7kTtJcTdW2R VfgM8Vj ehT1JBLjrRFsYEerJOF5W31 gr0F8MZBrBNOoTLO8kVU3qK 1hbGlnbjogbGVmdDsgdmVyd GljYWwt RVnaH201KXQyrPaxEvRwuTB sZTwvdGQ+NCPjRZK0kJqtMG viADWyeF9rTRInD6c0KkAhC tA9FRdt N5IbYFHbkfonZc90eK3qLkD oMmK4DTyhL3GygbU1EXDqtH McTAbmPMO8Y58nj8Z1PFPwZ DAwMDA7 aHX3pP9kvYefntdlwMJoiRa mstIqmMvrZSouEIubB258LS QaeKkmWj37yBOmePyaskZ7Q 3RkPjwv dHI+BB30ZUGgOM86lZQrvHD bc5jnfXx1NkNwMFVjGPI2jT dmPJtqh9EjYOMjA69ohBQsm 1G3MZGg cFlgcRWfRmSpcKV1uV5dECc vweqpx5izdfugQgjau4hsqc 76jD43E21jUCqaFSYzECZrR CUiIHZh dIspcm6ctM3eSd8+PGNvbCB 9dYA2hR6sPlVhYqN9MScyG2 81ErOsoTOiKgzoq8qrl9esx Me4JtDk NJUipwBahQfbFKX3b2KqDi8 1E83iGYvpQRLsFPEyJGFsYR HbmToayt6vfZ6gVa5+PC9jb 7ghag34 rV78yTI+WIKcPOQ8qYodIIy mAVCigX3kLDphQvE4HJNwWk HckC00zJVqQJqwZk2adUgaa HqmPX1p SGLchzepy008EhFvs0jzJVA fpTNhMPuuGLV3H63lf4S7KL PbWUMuKJY3sBT0eW7mtBlfs jogbGVm oHklnnAlyJcdQDvnHIkeR39 2EOCyzWclQhWtfQGyL2dgmw GJKT8sPoulgGO+OKHtQPX3k WxlPSdw OFAtsN0nQTOcY2b9PuIpRtL 0REroC9WrsvO4FDXqfLKvAC RztAPRcP9qhdial9srrxtfX zAwMDAw TYo1RMy8KEVjeFpwAwBrZRH 1PyF9EKR4yCAhjO3ftEangj npbN5gHng+RklOOjwvdGQ+P HRkIHN0 iGxtPHjwHGEpsX0dKAQmQ2m 1TbKpHrW5OGxzR6LlryJ6FY TydWPtRYRixAQZvG3yieqyf 2xvcjog YlFxBOCxLCb9RYm6KFIyoHw fRrTdOCF6VoA5HBJ7lJPjaN 1gsBzdzysngP6oCqi+TVJOO jwvdGQ+ ZBAkCBW6hWpwOQblBPQdyV2 jAFPdN2a9VjWeBgQ9LXjhC2 KuovZ1MHOysHWsKYQlwDYWy K4sjlph r8edfjrjAxHxIAUaZDx5KCz 3ONOxbIoyFdYjPVF7EqD9WE A7fONxnE4bnTxyoejzvT2eP yc+UGF5 ZCN0FM70VD18J6MjCfcteAG ibGU+PHRhYmxlIHdpZHRoPS wtYTQxLpRplRecDN3aJf4gG GVyLWNv bGxh (more content not included)... Normal [facility] Consent for Procedure/Surger yon 05-06-2022 Consent for Procedure/Surgery [id number] D:127 Normal [facility] Ambulatory Visit Summaryon 0 05-05-2022 Ambulatory Visit [...] Lab Collect, Change in bowel habits Normal [facility] Auto Diffon 05-05-2022 Basophils/100 WBC (Bld) 0.6 % Normal 0.0-2.0 [facility] Comment on above: Order Comment: Order Added by Discern Expert. Performed By: #### 1 [id number], 2752154, 2370777, 8263244 #### [facility] [address] [place] [address] Basophils/Leukocyte s Auto (Bld) [Pure # fraction] 0.0 E9/L Normal 0.0-0.2 [facility] Comment on above: Order Comment: Order Added by Discern Expert. Performed By: #### 1 [id number], 2853063, 0908402, 9242479 #### [facility] [address] [place] [address] Eosinophils/100 WBC (Bld) 1.6 % Normal 0.0-8.0 [facility] Comment on above: Order Comment: Order Added by Discern Expert. Performed By: #### 1 0829900, 2616320, 4748826, 8653940 #### [facility] [address] [place] [address] Eosinophils/Leukocy bev Auto (Bld) [Pure # fraction] 0.1 E9/L Normal 0.0-0.5 [facility] Comment on above: Order Comment: Order Added by Discern Expert. Performed By: #### 1 2303447, 3882833, 6326263, 2282551 #### [facility] [address] [place] [address] Lymphocytes/100 WBC (Bld) 15.4 % Normal 14.0-50.0 [facility] Comment on above: Order Comment: Order Added by Discern Expert. Performed By: #### 1 2678034, 2958121, 6736978, 0387357 #### [facility] [address] [place] [address] Lymphocytes/Leukocy bev Auto (Bld) [Pure # fraction] 1.3 E9/L Normal 1.0-4.0 [facility] Comment on above: Order Comment: Order Added by Discern Expert. Performed By: #### 1 [id number], 8499452, 3193198, 2085380 #### [facility] [address] [place] [address] Monocytes/100 WBC (Bld) 5.9 % Normal 4.0-14.0 [facility] Comment on above: Order Comment: Order Added by Discern Expert. Performed By: #### 1 3392518, 8811087, 2180184, 1735832 #### [facility] [address] [place] [address] Monocytes/Leukocyte s Auto (Bld) [Pure # fraction] 0.5 E9/L Normal 0.2-1.0 [facility] Comment on above: Order Comment: Order Added by Discern Expert. Performed By: #### 1 [id number], 4691635, 0295694, 1313613 #### [facility] [address] [place] [address] Neutrophils/100 WBC (Bld) 76.5 % High 36.0-75.0 [facility] Comment on above: Order Comment: Order Added by Discern Expert. Performed By: #### 1 1196184, 8551301, 5271227, 1242300 #### [facility] [address] [place] [address] Neutrophils/Leukocy bev Auto (Bld) [Pure # fraction] 6.4 E9/L Normal 2.0-7.5 [facility] Comment on above: Order Comment: Order Added by Discern Expert. Performed By: #### 1 3148071, 7197036, 5647410, 3036988 #### [facility] [address] [place] [address] CBC w/ Auto Diffon 3 Erythrocyte distribution width (RBC) [Ratio] 14.1 % Normal 10.9-14.2 [facility] Comment on above: Performed By: #### 1 2290556, 2819004, 3592611, 9860671 #### [facility] [address] [place] [address] Hematocrit (Bld) [Volume fraction] 38.1 % Normal 34.0-46.0 [facility] Comment on above: Performed By: #### 1 0712388, 6594512, 6741959, 1612329 #### [facility] [address] [place] [address] Hemoglobin (Bld) [Mass/Vol] 12.5 g/dL Normal 12.0-16.0 [facility] Comment on above: Performed By: #### 1 5567280, 8163427, 9186667, 0722549 #### [facility] [address] [place] [address] MCH (RBC) [Entitic mass] 28.6 pg Normal 27.0-34.0 [facility] Comment on above: Performed By: #### 1 9659814, 3866127, 5993263, 8938078 #### [facility] [address] [place] [address] MCHC (RBC) [Mass/Vol] 32.9 g/dL Normal 31.4-36.0 [facility] Comment on above: Performed By: #### 1 1592700, 9386958, 2738104, 5313486 #### [facility] [address] [place] [address] MCV (RBC) [Entitic vol] 87.1 fL Normal 80.0-100.0 [facility] Comment on above: Performed By: #### 1 8610277, 1857530, 8521454, 4220777 #### [facility] [address] [place] [address] Platelet mean volume (Bld) [Entitic vol] 11.0 fL High 6.4-10.8 [facility] Comment on above: Performed By: #### 1 5537565, 0846973, 7518650, 1704453 #### [facility] [address] [place] [address] Platelets (Bld) [#/Vol] 202.0 E9/L Normal 150.0-500.0 [facility] Comment on above: Performed By: #### 1 9707760, 6065361, 1449202, 9864390 #### [facility] [address] [place], [place] [address] RBC (Bld) [#/Vol] 4.4 E12/L Normal 4.3-5.9 [facility] Comment on above: Performed By: #### 1 1312289, 8197521, 8081736, 3491893 #### [facility] [address] [place] [address] WBC corrected for nucl RBC Auto (Bld) [#/Vol] 8.3 E9/L Normal 4.0-11.0 [facility] Comment on above: Performed By: #### 1 8696526, 7223140, 9124515, 5296679 #### [facility] [address] [place], [place] [address] CMPon 05-05-2022 Albumin [Mass/Vol] 3.6 g/dL Normal 3.3-5.0 [facility] Comment on above: Performed By: #### 1 8092183, 3045757, 8607092, 0165685 #### [facility] [address] [place], [place] [address] Albumin/Globulin (S) [Mass conc ratio] 1.0 Low 1.1-2.2 [facility] Comment on above: Performed By: #### 1 6627758, 3970304, 4914087, 1269448 #### [facility] [address] [place] [address] ALP [Catalytic activity/Vol] 93 Int._Unit/L Normal 21-98 [facility] Comment on above: Performed By: #### 1 5793665, 9397738, 5780981, 8860057 #### [facility] [address] [place] [address] ALT No additional P-5'-P [Catalytic activity/Vol] 27 Int._Unit/L Normal 6-46 [facility] Comment on above: Performed By: #### 1 8545815, 8023861, 6151956, 9409877 #### [facility] [address] [place] [address] Anion gap [Moles/Vol] 15 mmol/L Normal 6-16 [facility] Comment on above: Performed By: #### 1 2005811, 5265716, 3720730, 6155045 #### [facility] [address] [place] [address] AST [Catalytic activity/Vol] 29 Int._Unit/L Normal 5-43 [facility] Comment on above: Performed By: #### 1 9605445, 1152973, 4014089, 6538297 #### [facility] [address] [place] [address] Bilirubin [Mass/Vol] 0.8 mg/dL Normal 0.0-1.1 [facility] Comment on above: Performed By: #### 1 0198600, 1611099, 2729597, 3595566 #### [facility] [address] [place] [address] Calcium [Mass/Vol] 8.6 mg/dL Low 8.9-11.1 [facility] Comment on above: Performed By: #### 1 4112310, 1125664, 5700318, 6466496 #### [facility] [address] [place] [address] Chloride [Moles/Vol] 100 mmol/L Low 101-111 [facility] Comment on above: Performed By: #### 1 0376505, 6242058, 3529062, 0155422 #### [facility] [address] [place] [address] CO2 [Moles/Vol] 26 mmol/L Normal 21-31 [facility] Comment on above: Performed By: #### 1 5094377, 2789589, 3947833, 4976773 #### [facility] [address] [place] [address] Creatinine [Mass/Vol] 1.2 mg/dL Normal 0.5-1.3 [facility] Comment on above: Performed By: #### 1 8032346, 9294108, 6750685, 8850764 #### [facility] [address] [place] [address] Globulin (S) [Mass/Vol] 3.7 g/dL Normal 1.4-4.0 [facility] Comment on above: Performed By: #### 1 5583021, 0242495, 9711587, 9451033 #### [facility] [address] [place] [address] Glucose [Mass/Vol] 303 mg/dL High 55-199 [facility] Comment on above: Result Comment: If t his glucose result represents a fasting glucose, interpretation should refer to the following reference range: 55-99 mg/dL Performed By: #### 1 1201961, 1396608, 7321187, 1068297 #### [facility] [address] [place] [address] Potassium [Moles/Vol] 3.8 mmol/L Normal 3.5-5.3 [facility] Comment on above: Performed By: #### 1 6867441, 2496740, 2850994, 6581717 #### [facility] [address] [place] [address] Protein [Mass/Vol] 7.3 g/dL Normal 6.0-7.8 [facility] Comment on above: Performed By: #### 1 3341234, 9408765, 4604429, 7692444 #### [facility] [address] [place] [address] Sodium [Moles/Vol] 137 mmol/L Normal 135-145 [facility] Comment on above: Performed By: #### 1 9869274, 4193191, 0507636, 7234664 #### [facility] [address] [place] [address] Urea nitrogen [Mass/Vol] 28 mg/dL High 5-21 [facility] Comment on above: Performed By: #### 1 4852092, 2914386, 9465911, 6927732 #### [facility] [address] [place] [address] Urea nitrogen/Creatinine [Mass ratio] 23 No Units High 10-20 [facility] Comment on above: Performed By: #### 1 9632253, 2804765, 5829671, 3337761 #### [facility] [address] [place] [address] Consent for Treatmenton 04-17 Consent for Treatment [id number]#1.00C D:127 Normal [facility] Gastroenterology Office/Clin ic Noteon 05-05-2022 Gastroenterology Office/Clinic [...] above. Takes Xarelto daily- follows with Dr. Guirdy, Cardiology. Has hx. DVT and claudication. Patient had previous atherectomy and angioplasty of left leg with Dr. Barney, Vascular at [facility] 04/07/22. During today's visit, patient reports over [...] Refill(s) 0, Prior to colonoscopy., [id number], 165, cm, 05/05/22 13:40:00 EST, Height/Length Dosing, 95.2, kg, 05/05/22 13:40:00 EST, Weight Dosing Follow-up With When Contact Information Linda Solorio CNP Within 1 to 2 weeks Additional Instructions: Following colonoscopy. 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 Normal [facility] Comment on above: Result Comment: [...] including vitamins, herbs, eye drops, creams, and tyiv-rlb-ljpwndi medicines. ? Any problems you or family [...] air t (more content not included)... Normal [facility] eGFRon 05-05-2022 GFR/1.73 sq M.predicted among blacks MDRD (S/P/Bld) [Vol rate/Area] 54 mL/min/1.73 m2 Low >=59 [facility] Comment on above: Order Comment: Order added by Discern Expert. Result Comment: eGFR is race adjusted. AA=. Performed By: #### 1 5736172, 3541348, 1757250, 9040562 #### [facility] [address] [place] [address] GFR/1.73 sq M.predicted among non-blacks MDRD (S/P/Bld) [Vol rate/Area] 44 mL/min/1.73 m2 Low >=59 [facility] Comment on above: Order Comment: Order added by Discern Expert. Result Comment: Lean Manager jin kidney disease could be indicated at eGFR's of less than 60 mL/min/1.73m2. Kidney failure is indicated at less than 15 mL/min/1.73m2. Performed By: #### 1 [id number], 4562008, 4194074, 6338737 #### [facility] [address] [place] [address] PAD Rehabon 04-15-2022 PAD Rehab Please click on link to see report pdfCD:[id number] IWEmPlo3PCLeZjXO3ngjc1B XppYBAaKDXdOPJeXMKQTt9F J9kfpnzmIMSsDbVjSSFg UDNeVWfgojUpl9LzeBU9KTu iOt4TloKflC3dGQsPM757mI TirqYjL28tgL2xDNBnv17cX s2KjaZa aKawhpVmvFIxTIF6GtXjUtK xMzExNDUyNDEtMDUnMDAnKQ o+ZzmesfZmPrwMSGKeVO8of rr6GTvn GCbsZHEnOi6mvQDiv9HmnTN 4z6KBG7KzeuNKBA2dQP8Pcm octA2AOf1LtYNgumYiBficI c8keLXH v8xuCb95JlAlFULkIYJvPJR jLLIdAQRxLt8HmIXwgR2xC2 bhfJlcYrd7Kw5IvBUyJOY9A SkvZ2Bx sUGaBqoSN0z8QJdgC8VvO1s xEQTUZ0BtoBpigNudbES2FK MUD4iJUEibjIQyVJK3Ng4Yj 2NlbnQg UXR0Na7WURKfSF03MV7pVZC VD5zlKLLoaftzBJEpAz4NBN fWsWT8fLDiVSKeTs1LetdHm JK2qQS1 ULBHWa8AEA4bq6ExOrAhEKK zGucSUJcLZ1P1hHUiF6Aghn SHT5M4SlL6fJRjW1WqgDGCs PPgWl5T HKVbLn3fdFPrQRNeTPrADSh tQoqwd5OTnDLyFEHbKo0SOJ U4V7eqkdBdDgERZ5MpL49qz K9dND2Q wT6KhfKfZZ8mw1EcnctLA7O oduTAGNAmofbacZ2uFCSuOX LFBh4IkNE0cUEpWtOuQfdqE CAwIDAg MCAwIDAgMCAzMzMgMzMzIDA mDMZiXkggVsBsJtW1IJZqNa toDCZ4KEH4SwA9VOXbHKS4H IH1PdS2 BKTcCIZ7BMXrOIB2SBK9SzJ yNzggMCAwIDAKMCAwIDAgNj P7XOM8AoJ4UxDnCcQxVDG2N bU6OPEe MLR0SpDwIvs9SJTwPyB6CUJ 8WaS8WgUDRyZzPPi3STJ2Zj ylAMD0LiBkBdW9QZOuFTS3S jIgMCA5 LQZfPDN0ZcknVFLmCBAdZCm oQATlLDE1JTJtBCG4TRTqIK J7ZKVlKSC2XPQ8XBA7ZNMmW SF5COSv QxAbHtZyETIlZMQtHzX9DnW LGQS7LLD4EbV6WJJrSMW4XG GoDjV0EDFyFsw4ZJG1QuL4E DAgNzIy LKReWBM3HICwEg5LWI7dy9S hVzavTBZzOqsHEQrOR3V0rA MmL2EuzwJQFRUstkcqeW2lK b5Ex185 MtEtBBZvOIYrUZpjEq5lJEt 6XUqtA80JAt1GbGGyctJyPo vxBj1hdTVTq4ayNi81UnKgP KY9UySz XwebRYGrGBmjNm2NqALsrO4 jA9nhoAilCrt5Ie2OcSOjQF L5GRxsY8WbyJMeSoxLJ6k1O MqdN3Mi G6esOK5rSfwmA1EtCTJrH7s 8CJwaOqkvOPhlvCmspFL0NU qLQ8ZhM4OxnAF2NMTGF8Lho 2NlbnQg LTIxMgovTGVhZGluZyAxNTA TX73uwYkpHVGyEWJhUnWNY2 A2H9soBSCgIUT5KAo+Pgplb mRvYmoK DFEaFX1puks4EAezGOrzFEO uFm0ziLpcR6PjwMjbHGBvFO L4RFD4qCFPL8Lkn8LQv365D V3Akupl uM9Hs9exVBQzkPxpCACSB3M iasJ9E4htwkJaUcocUQPieY CfSRJrTAY8Yv2CgnZdAWjoI mCqV3zk VT9psEFcA40fxQ5zEl2An31 3TDRyY4YkgNYfnpX4QXBvFj qiH1anuLxkYEhqDwi7YZPwZ CAwIDAg MCAwIDAgMCAwIDAgMCAwIDA KMCAwIDAgMCAwIDAgMCAwID AgMCAwIDAgMCAwIDAgMAowI DAgMCA3 MjIgMCAwIDcyMiAwIDAgMCA wIDAgMCAwIDAgMAowIDAgNj B4IRVrVXQvFOIwXDSdOKRuO CAwIDAg MCAwIDAKMCAwIDAgMCAwIDA wXJQ1VZQnHREyFKAqFZNcJS CcWDC5HUgDUyUgAXNtXOMcZ DAgNTU2 IDMzM10+PgplbmRvYmoKOSA oEI4ayrz5PLomBHzoTSLoIh 0qzECrx0DwyVO8r2ONW7Rme aHRVY5i GY1JvcjquO2Ep8qgRCBZQ8Y lPGapLPLfKu7Ji596VfQyeP XwECOvKXRvQjo9RMHnZDEoH CY7Gb0L J89zk8AvgcdByRS5wHHxNao KY7N2UT4CHUf3Gu6JvBKiSa O0BPriHLYesGrdYT8vdOUcC AypZ6Vx KHWeV8q6NRwdLbqpMKolsNj ttTK6RBxZN1TjH3SeaUL7VQ GLJ0Cvk7FyhqSlVPUnZrkbW GVhZGlu WhLkYCQDL21nmHppOPBqEIK tXJNFQ2J8W0wiTLEdCFW4JT o+PgplbmRvYmoKMTAgMCBvY moKPDwK E0G3gMPfK0SzfsGOU5Q3CvD 2hIGtS0SfuDLSjUKsNm3WXE OuYm4jyCMuHKLxOOlpXh7oH P3GXn1Y dDIdoGCbPTEbExZCF9wvq6W NfIZnNGAkPXjwTL1pu7Nkja lxZ7lzdiAdh6qBxiEuOOriP fcqBy4i vFKpf0MxpIZ5h7JxQBDwGJX DJ8cbAQAeaqWdXNZ8MQPpMD LgPMW3JENzZZVkHFGtJiFiQ DMzMyAw KMBnIbp4CXHZMtf3SYL9ZRI oQPF5VyP5SMEwLFZ1SUB4Na A1KIBiKMKwHNSzZRAiTjOaJ CAwIDAK PUA8QHJsQFP6ByOuPoWtVZh mPvT1UwUfTaB1HDFoZTD1Qo awTvDlHRY0ATR7RWTwWJJ7L TEgODMz YznwHcE3XtxvJaM9NIt7LOZ 6ZmPxLiH1HMHrHEQwTPOnLJ T0CXHjCRPyHKGmOYJxWqTkK CAwIDU1 VvE8XIAsHVB9CWSwJUN0WTA jZdToIIVcSRF0FSQwYby5XZ OhDJK0YTH1XRW7AKhYNgXzQ DYxMSA2 TUSrUDWtEQmlWZD8ALMbPjD 8RDDtDMC7QVy8DZT7DFRiHX U2XT4+HfIgFN1mwxpvPSAsZ C3ymee2 NRgiOHGqW4UtDEN8SYW3Zf2 KAH7jbUslVkq0HlgwDqcmmB VyIFsvRmxhdGVEZWNvZGVdC j4+CnN0 nbRajUt64uQJdMFV7VZ/976 P+4rXnO62kWN3waEK5OGDEm ZLXSWde6qDdXwsftefch4EV iQCUhDK yXSYd5NOQcv1VtMSZLe+Jag FKBfYkDf1fOY4r9DvJ4FePP XYPPCLP3Wj555xUTkX/+hM7 Tv57e/e y47608sf08rNDVEPH8DQLJs q8nP2MsvIC9CaEHRqbZxgJb vevDLDBLAVAchLHmhav/Q3v 5c8QWIu IrAA8UcSB869h7RxWQ+J90x zJKN1xv9NWQZiqqj9xgeavv etKggQh/nE0SbJrYGWplTAJ Ihdg/ef AYMnmlx0W9N5jtw988gRpg9 LjpHX41i6E2TBlH5o57OpTf jRSE4pn8Ip+1aJkDg5SKN32 4U4+gnU 0spOcZrOC5XWUkMy+EAewsR PCFky2MJilOF0mnLQU87ew4 OVDyE0WPKN9qs0TbMucAN9B MFA8ONp An8BwuQwU9b0HR3VJ2fAZDf Lnssl6Kdu1su9ZlYVPKXy6E iY7HJkE3pyq6ZaOaiIy0A6B hw8kXUD ByXPea8CKS0tMZine+BD+Ct WUTGqSJ9xPevntKOgVcsIlw Rp93xjOF9oGKRfDLUyb8lLn USnYtSV kIzjxBE6IFYvHzWVgFcrYTV LBITiTEUwyHula5GovosJDw 5ZLxLwDwq0lPixuNNkP9F4I /pRrtBs XpL5uuW3TTAe5ZqVrjQCNa2 6n+3RVIytgAppoEMGTMGqfL hGNeZcDw/Pl1IeGVuGtrjb0 INO2A+H NPDf2Yg6WNuYF+AadicWhde VTwrJApQgyiqyiWzFfrTeJD hML3BncTQ88wvv76AwCeoFB i+y3EKf psfp2/Qd+jG9SD+mL2ai4bB qXp73RntwYDHprr4Na+ROeb /0qcsUPmCX1aM8endkz8hrp FKyY795 bzqGVqmqtERjLE0DUFkMEWO t1qSnZ4QMlE0kl8Unb8dN+u AzXgfKwGAlXAqJl/jJfJQgW UhCZAVZ TdYNV/QyqF8wGgadwtlDUuH nyR/HW8rmqoudQo9h9fB0kq hcuoAup0/Sp+zv6NT0dp32R O1PGuSm M9DnBSMUJR5kIsQtq+RHmSc hduXDD1Ok8pF8HenQtUgW17 WM6ytyyRs3TdzzhGa0pbfFg qFMVaaj NCoPKZuUVmUvnuh+pV+Ntro AvjqwM3Ej7f54U/8Ijt6GLR WbzbDKCHRuFZCfp96zi+xT7 ztavr9S yEE4T84COTzuztv5JFmkz4J 71BxII+heQDsuktZDse68Ci 2vhDjjG2+OzSXjcad+D9ckG 6LRU4KA uCrouQoeqg6RY7S8aDv2QXs lnhFmM1rHXoFbDmpaLLzdPV /l55BSir8N1UxR3TPru6EUC pJZSis5 DDkkS08CGRFojMR0B4pmAng KNXziijQ5oIHKwsKW5SM2eg nCTrTBcSqmyFbTKqMx9vUT8 WG8mOEN zxmHP3MvnIlLhQGHBHj4VMm 2iICz67reyAVyjPmiPATQKw 4n4WOlF3HiIFKytK2C0yraA 1QmaLag EkEeQcWCigQVClIFyYIkQcR zD/ADuZGM0hD+k8sH4SeqAg POoP2JAmEznCvSxDy1bD2CT jEEQK0t uJDaDHY6K3KSIj8YRcsbZWI 0PReZjMR7c5BETTpQSsmAIr 8H+UPE+4g+cOqRu1kgkKaZj xHdiJcQ iVhwQgRr8chbZ35Rphx1YxC XK67w47J3Hll6I1lptcwpLN tS1t7A (more content not included)... [facility] Please click on link to see report pdfCD:[id number] HRMxFqr9VBXpKjLI5fiud9R FjmPEBcHSSnHOXrLVCWZc3Y S1jamariPSPtMeJsGSZf JLJuJIbbjgOcr1PkjBZ0KJr mOf8WfzJbbE0pNJhLE724lY QccqWaZ73ztR1hELUct33tG o7WlxMl jUnkbtOclYShILA8NsPjEhX xMzExNDUxMzQtMDUnMDAnKQ o+KymlyfUuPpdPDCXwRW2uo dy3YPar BDtsPKNmBz8bmCGeb2RfaSS 4k8VYU2CsppSADG7eLM1Oie qvzD9Yk3quYCFcvBvuRAFPJ 0ZsYWdz NRYyJh5Cv473JeYswOUlKFE 3CSSzQga4XQJgZUJgFLSfGX 6BZ91ty9OqdqyVcIP3lQZyC xdSZ0J0 RS9RWOp1Sk4ZlUBsHnH9RXm jQEElfIroWJ3heIFqIDTwYb 2FHDFSSEvpsHIuRiJ3Fu2NL YMkK5y6 LDUdYHraMXBwNY92JVvdDTs rAGPeE8BiwSEpVkUrAg3FSR IbyM6tIOB8KOkrRMJ9P0oio GggMTMz CerfTIPvS1yypZtxIVe7Pn3 +EpYcTE3dloq7FUKnv9MgIv z0Dp7FjFZwTR3Mq390Tw9No FD1cONr LJ3UvxShEUhsFKbdLcNmRBG wwvMsY9KpyJNiGKAjyRYUtN NleVKLUPvyPzzro5WRxKZyN QIkEd2U TSM2F4ilndQwAnWEQ6TzJ79 nzU8zKM6CpX1RahKbCO8yl3 MbdsmRP2BetkLAQHXgbxzan K0fFUPz OYDIOz3SvZG0xIKdYtYnEay gMCAwIDAgMCAwIDAgMCAwID AgMCAwIDAgMAowIDAgMCAwI DAgMCAw IDAgMCAwIDAgMCAwIDAgMCA wCjAgMCAwIDcyMiAwIDcyMi H7JeIjZQW5EGHuNNC4RoPyR am3TTGh WCMiWGqbAxx1WzMoBpi1PEM 0LnSgWDcrElS2SwuqPXYoHV AgMCAwIDAgMCAwIDAgMAowI DAgMCA1 MGAdUmGnDAG8FiN8XFPeKGH 2PFNyYvI5MYZoKwOqARY8AF FbUBM2FjYwZpqqJCh5ZwEiZ GN6GPYp GuTnYQJgJsp6QKN7HqHuSaF xSuVvOEG9WiBwUGRnBWY9YT 4+QzAoTQ7nerd9WTYtw4IoI it4Uq4F dIFqLR0Ch474NAOaS6GrzER ugirlTz9psU9exJXiU7AjdU AlFKGwgROTSIixTcabD8CjQ wMRW6Hz ewGOHh28CMsdNyI3NJ1yOuX wJgWnTCUkDOK3ODmjBIiwv7 avI9trEBFdSBF0ZCguN9Qyx UggNzgK G6M4IX4KKVx3Rh6ErTNbwDX OgoktKXQmEz6FHULXOIqefH LjCaK3Qe0PXYQeS4f7LLTnB QovQXNj EE15JLnvZNxiCPEsC8XqbWI pFgTxOx9KZEOmqR7zSKC7LE mdFOX6N1bhrRflAhIoGArvP IDnO5qj rPxfLBg1Eo8+DaIgNM0pevl 3WWWcl6OdPrz0Um9CtNAhVZ 8As124Iz6YyDH2ePUvFN1Gq nVlVHlw GCrtWdFcWFOhykPoL8XrhOQ dLNZjzKLBRNsmBtugc6IXkO SnUFAsIe4FJGQ4C6ayqvPrU fVQO1Yk W46juC1nEF3GxT9TiyHzIO2 px6IcfpnNY8NxanRAZWAwrb mfqX4lEMnnIPOMGa6BrEK5j HMgWyAy UuzeFJEnCLW1DuElIOn3EZC mJDJcNbTsWPVlZtNoRJN3HW ApXtlvIhYdAdG8PHFdXqjxV WY1PYM4 YhU4HWEzDCO1IFQ2WtE4EEX kXQP1CKHmHFKqGXUxVwFnMV JtVPw1OaP3WJC9DVBqNHK1C jIgNzIy URhmMsW3XmGbUrP7VEHsNID 7JrckWbRwXOZ0CNJ6PMGmNi AyOYBxPUL8EuGZPiLuGEy7R IG8Sevf FYL7OjQdJtW6NAGnEZB2HdF dQjW6ASe6YCGdEJN3KtIhMP KbPNUeWrHvSQFgXEZ6KwU2W TEgNTU2 YURmRDC7IWTpRxIwYVVwNYW 5ZQRmGdb7RHC9LTM8GMVvXc j8VGu0IGp0GOFwOwKlZUWtG LL4EAUe Ocs7DBM3McDqIwPtPbPnXIL 3HcJ9IionVEO5TKT6GjU2NK IxIl6IMJ4oa1PeFertOECpJ moKPDwK W0B2yFOsK7RybrKPAHMznlm mvJ0zGp1Wr190LqJqJSNxYG IiUNdLENftCqosI6EsAaUBF 0ZvbnRC Fq41MVoxFqF3DL5pNyAuIuD aXCDjUUZiDJqnYSqyd8adC5 enESThXYF3YXjxN8CaeZxiR arQJ0O3 EU2QSOj2Yk8UbJHbvWWRjah vIYAcXl6YSFXQNRtuuYIsEn D4Li4HRARqP1c0HKBnDRdtP XNjZW50 QPloATjdNZKhO9NctQKxQlT hLu1GSCNecP1lHGN7PUgjHX R0Y6oxwKizSzOcYRznUJBeP 2lkdGgg NDQxCj4+VhSwNJ3tlfxvMXX cWL6xxij9GEqdMNgwETIxQm 9noMajS7KunHyhVSGgMNR7R WA9iHYG R8Igk2GCf019JM8AchpreQ2 UHk7MaTJvaQLwJJEsSgHWI8 cth8WAeYYgLFQnASwqHB6zb 2Rpbmcg N9lyaoUhk5hVgqQdAAebKar nNa0kyQFih1QbpAD4q5QkJX NgFIRYP3mkQMUipxJgVGD9B CAwIDAg MCAwIDAgMCAwIDMzMyAzMzM cVXI1WFSaLSTaKmPpCsq3EW J4InB8FVKnIMK4HOZ1OjV0D TYgNTU2 EEW8AtS9JAIpLHF0ZHE3IkT vUPUmGGJcXjMnTFGdIIR2Iy V8TxxqOFC7FoHfSqP5GOWhQ UC7Hsqq BaYwRNC9NWFtVYCuFYT3WMu lYvk6QmVrHpe0ZLU4JhXfSC soGnX3EaalHjByLZLvZOO8S DQgMCA2 NjcgMCAwIDAgMAowIDAgMCA 8ZVTiTHD7BDQaONG7GMGqMB A3JRW2AVW2YBFsETO3XDRaT iAwIDUw DFGrAwZrYAJeDeB1GeM4KPN dBYM8OEXuUnGeFPHiRRGkJm xfEWD3YUNvVJF6BnAtUVRwP DUwMF0+ PgplbmRvYmoKMTEgMCBvYmo KKKyRU5yjnxs1yLOoGOGwJb rvCWTeC2MxLKG8BwXUG0Gwb HRlciBb C6XhAOOyLKLbw1LhVAy+Pgp yrZVhSK7XvBmGRN0zLQSBW/ e+j/q7b9DBq7oBpohcEjvLY AIkgRiW NZtWG57JY8JEZHmaTDWcStR QyoQCgpvQxhJstQIBRQGJvi PoCENqLhFHwiO3fEFKPm3oK CxxximU MatSs19CBlVqFl/oTO07+e3 v3nPOO/ecc+/zklAMPEw7oH R63do1+ks5hw+j2alVAz4t8 sIf5bda pyBlYUWWBu9hFh/0N7/YuBg u2adN6lGMSVT/ec+F6Tg/if vVm7YTqLG9BaZeQc8JHo4So 64nrSoI FNs546RpjUP9KR0JIOFURXT 6q44Gv13PbjjBbrN06EjvA6 9sd8tjYdLOHD/V0HzPW+OWY L5XRWMn 25w0hzn1jxwspECAL2MQAXe R4QBa99e0lXWOCU55Y/hAHs VZETB6mjJASesj3GiyVM+98 PlgFV9a NEVQi/Ef0L3ISBs9LjEocwg gbRZ/F0Pz3U7wHj3TZ6wNlR x7ypdLxy6NO+n2tA8xLicoh 9BnA+xC Wy+v08ej4D7lwyxhUTcg+YT 53jrMQd1+kwbR1e7A89/gQ/ qxQXPZIWfAxo578OdfPnLjY V2dHCyx VQzqKl1iIHcMEpaFW0rPg7K NhICN3fUxDR5X9LFyY13D64 bQDnFN5UNYSWK91tqoPb4yE t9HGpAw u0CSKXjRNwjTwGNtMIT1Il4 NmYwHb89exzPWd+VLynLlAE qfOp/y9QIFyYAVsbJIZkeEj vm3GqQj QT9ArnVEjRZUdS07MjlSCey PhyECJ+HdoT30MkftHhOrRg YJdW0QlPNSZAortojrrB533 mP2yJFv m5zA/Z1y61R3aJwBM8Gxflx Dk8sQ2wp1OxmkuHj/o19IIN gcCFIfxIi4FS2F1eHvprqwS nm//JH8 kUIU0+tThJcc0pf5alDhN6n IwhCe8J68qb9waCVmRElRSA xZzpXqNUrcW5IeSJnzBAuIJ FnmX55V szFiFSqZmWx5pRoHYWyUBlV GQM2ORNs9SDofOIZMaPn7MU 6r77toiC/K34KtucbIev4x+ qroXLqA BcgV9tiiO/TIQFMg3QP0bO3 Kavitha/Qh5boaRGtAKqpUJ/kR5 bgGTUBZSdxBuy1rX1ob99Rn u+Si+X5 8n1Y+6w3ltkDt3IqzrMjCNO bbzHqQpaxgSPfO28qgiSakz g5Xo3hnPGM4vh+uCm2TZ2Yk vrjZ7Vl wK0by1tVB5mNhWcqX+2obZZ ozY7JCIzEjZR30hpm7yN94Q /Q+3PlVNRl9UL4RJPge31jM RrNmmzL bSwFym1k97Rnwl/XJBtUymd hgbQImpRaKYpdhkNktbyZvC x05p22LIiBMgaynT67sKDjL 0Q/6dPS EbaehdinmOkVaZfSyCaSWUo jXTBw9fE9qaUH08fIfI9YEv NszMm3RWpEjlLJd5gIoAUvg izej8lq lXJP9gQ2ggSkA+6gU+mTtsF KPRFdUZ1b3FjqnTkOPqI7/V turHlmYrR86YHfRpaSNojjJ bF3XXmq vCLECoL0hNM0aoFYHjyRZzl 2oBJBHkHFgooEFQpSBcmCJE HEcw/cZ9fiaE2twyt1T/Eq4 nUMt4ab wOZHOlBKjG9IcFj9yTcHKyS vShbT65HJqesRHZMXOmkg1L lBewV5 (more content not included)... Normal [facility] Please click on link to see report pdfCD:[id number] QEWkHtl3EEOzOmIJ6mdfd6V DxkSACnXFFsZAPuAGPRUv1D G3coyfciRAZcLpRvXOEy BVFhDXpzosZwl3BeuGC9ODj qIq7TskChtO3uQNaWT839lP LpqiWjN64mlR1gLHVvq21lB q1WhfGg qRjhyqSabEYcXDU4VlYtFeU cHqIuWAH0ONLiQDPxLWSoVB o+PzxuryRsRpnQGYCzRS4gu wg8FAgz OPirISRcBu9vtDEbs5CtkCB 6j9ZWG4TjqcOBUO4mZK4Oev pxsY6Xn6kxILXnmZgvXTHTP 0ZsYWdz VRJlWs8Vj911QyGvtHWnBXT 1BMIqNss2RHUkDZQvMLZmSV 0CR70ux8YdfeyEqMZ5nQFxK onME0E6 AB9BNNu4Nl3LnGNfGoE1DEr aKSBhgLkuJN0qoNHhJOIgZp 7YQETJSDmczYCqTlP9Ms1ZJ QRdI7q2 SLZuWSbiYCXwUI03IAfvHOc bISOvH9DmkMYhGfElMq8SGO GwmM4sGKD7DLpiHBE8Q9arq GggMTMz CrboLJYkO5dhhFhaVEb2Rr8 +TkYmSS8qdjg8JGAxv2JlSa x9Nx1EjUPpTW9Jf905Uu7Ju SD8oBTa ZL4AexEzOVhbVKynJqYiYVT bfoIqS7YqgVKnUWQuqSGBlU OvtELFCAvtZnkxd7BQvKBvJ JGlCp4M UWE5F3srtdHrYnZUC1MxU63 spQ9qNV4NkY5TixYtSQ0my3 IndruXK9CkdjPEHFAievfwc C7sBPDz BVHRQx8ThKW5bIIbXoTuDvm gMCAwIDAgMCAwIDAgMCAwID AgMCAwIDAgMzMzCjAgMCAwI DAgMCAw IDAgMCAwIDAgMCAwIDAgMCA wIDAKMCAwIDAgMCAwIDAgMC AwIDAgMCAwIDAgMCAwIDYxM SAwCjcy QhMtJVF5XrY6EbfcKQNuXZY gMCAwIDAgMCAwIDAgMCAwID FPSZZfOTWzJQF5HFLhCCF7Z DAgNTU2 IDMzMyAwIDYxMSAyNzggMCA bXAV0ZAWdKcCrRJF8AUDkHB OhOLU3QVY1YVVlTbXoZJVkE SAwIDAg KHP6TOBqSe5GQI6ml3WzOpy wESPaLomLTHlAP2M2dJTdP5 NtwaBETWOcpewucW5lPq8Fg 250TmFt PKMcYFZlHPoSLSnxQbwzF1U hGrMBJ5VaetLPNp60DPmqDw K0ED6pBaSqSwSwZFBpLPHdD QovTWlz a7dnY4baFZYeVYI2OGowJ9Q qkQmhOrtUW6A3TA0HONg4Vl 1GpPXnkKUZebbjMTCzNu3PV XBIZWln aKTdDqT1Dx9CEYTdO7a9RZB rHEyiTQUfGY38QTzxWJkrON MkJ8PmhKRxPgJpEo6PBOFxd V3qIXP2 KKxtAFK6S1vdnZkgMzBdQEn yONDjM7yqzDrzQFNrKg4+Cm TlPC3qplb8VVFuq2IoRbi9J b9NwCVj QW0Pj900Hl3YiDU9sXWhFG8 UcnVlVHlwZQovQmFzZUZvbn TaO5FvjMRnOWJGK9IrfhK7I 2hhciAz MgovTGFzdENoYXIgMTIxCi9 FczAtWZteZsLiJ9mbQC0kpI BpK55euS4dLm3Pp795XQJbN 3JpcHRv yfV5QCQjCkgcR6ulpNkzYXs lPya0VOSyMENuNRKmYUDaOU J8LYFtDGYqADNeORPgClPnK gN7ITXv EomnKAA8OJO3WgN6VOVmQHZ 9MEV0UiB8IYKkSTT5XMB8Vk U6YGIpPUF2FDG2OBOlJFHnW AowIDAg ZTD2HeycKCY8LwBzOyUlDXE 7QbLpENb2LDZgFTB9ZOKdNT T1QvJcYOdoJqn5LnMxMsl7Y BB8QbUr NUooTqQ3CpnyEzYuAHhzSdS vWUo4CXGrDKHdCDSfSVWrWY ejHQOrFHP7CMZxVMW6BIJfL IU9UMDd GFG5HZG8CVS5VCKuFFJ5XKC yMiAwIDUwMCAyMjIgODMzCj A5XwW3YQDuGOP5IPHaAuDvK DUwMCAy EyakGJB3KBSiGZU7PbWyMUX wIDUwMF0+PgplbmRvYmoKOS SoBA2ptyd3BDcoVXrvWHBeK h0ldIQw d6OufUL5v6ZMC8OpzzIQAM6 uCB2TjzmuoP1Ep2urOSEMK3 CfKIneMZSvAn7Lo904DaEqa CBbLTYy BREzWzy3PJNmIGZkRPN8Ld0 QA89mn8VivurLsTX8cRQrMm uAQ5U0OA0DHCz5Wa5FqLAnG yX8NAfz FPEcnPwgQK2kqEEqZYmrR2V vZBPgZ8m6HQgsGxiuUDmmtO upvVP4LXpZN6KnL4ZktEZ5T CAJG5Ao p5FhzvZbGMCtGcbxUAMfITo iWfDzAEWTN29oqTkeKMQzUK AxEJRLT1P8C4gjMEZhLVT2K Qo+Pgpl bmRvYmoKMTAgMCBvYmoKPDw GZ0G7uWLkB2RuxbDNE7S0Nt H5oHLwY8EhuSYNgUJdNw3BR DAoIs6p iASpBQBsZAfbKh4pTN9DYq3 KhBWvhBPpTWTlHrXMO0uin8 GRyXMxYLBbNSlfCZ2je5Djz cfxR1rv srDlp5xCcbSgSAatRqjsTg4 hgXOds8TkeUS3o1YsUPZrUK QGM0veICMzetWfYSE9PRWpG DAgNTU2 IDAgMCAwIDAgMzMzIDMzMyA qXKPaPIIvGwH6EPCeHRXyUL AwIDAgMCAwIDAgMCAwIDAgM zMzIDAg AGYrYeLfWAAuTQiwJxB8XrX zPiPmVIteMqBrEAMuWML7Hh bbElBfDBL4YQEmBIAvYgXtD DgzMwo3 VuYfFxe7UAK1PqL8QjinAtN gUDB2WhP6INLqQhUuIBMdRS D9XDBuNlB8DKGvDLTrYQMFA CAwIDAg GMT6WOXhIUT3JPBgAIE0PKT gAbJpTMBoIYC7VTSnXvz7KS JrQDI4RHR9SQE0ZAmACyXhK DYxMSA2 BCTaYXWwQThsREL9LDIgYlN 2SHUhCLL5MJk4KSE0XFPoGM U2XT4+SdKbQY7lesfnAXJzW N0gyfm5 PSaqXWauFPGaTu6imAQee0V ytHV8j1MCK9ZqjiOJBD1cXF 2XwogluK2QpLHymNANBMtjQ nbmJ8Ze PiSNB0JyolDOHy38ECmaCME 7PS4gFaUeRJA0HRK7JIxyBp 8BvMKynK4xJ2dkoBwaRmx0L j4BtSYn MVO3TYvsS2UqwLDjZlrJP2d 5YLdxI2EkB9roKU3wWwjjL0 WuHFTsX8n5IHcaAefqCUblv WdodCA1 SMcSI7YdZ6OgnPJ8MLWUB6C eu0MsneTkTBMvAulzBLDqQP uhYpTcVDIGY07vmEtlQHJxO DEzMzMK B0V5X6gqVNZtLSF8TZv+Pgp lbmRvYmoKMTIgMCBvYmoKPD wKU4C7cMPvI2GtuqCFU1K3P oC1rLIv I2PvvHOSgGAgTx3YGEQzDe3 udCAvQXJpYWwtSXRhbGljTV URH4CiwuE1P2nvsaLxUviuH GFzdENo YTWxKVA8Iu7UqlVuSBehMoR qI3ebQA4hqRGgE15xcM4xSk 0Dp205HTQjL6RnnEZjzlIkH SAwIFIK D3rhZXYiecWfNKR1YIHdIUQ gMCAwIDAgMCAwIDAgMCAwID AgMCAzMzMKMCAwIDAgMCAwI DAgMCAw WMLtSDBuFFU7WdHmHxpcZLE wIDAKMCAwIDAgMCAwIDAgMC NaPPPxRYC5BpAwMVEpDFWkI CAwCjAg LPL4DtpxBoi2LJonEzQ5Gvi eVEFwIZNdTEQqQBH6OvXrXM HeUABgEsHwELOpSEI6DsHyY DUwMCAw KOU3ZfFwFQUaEBPjTDRsPID nNdOnKRbdKKV5KrFnYNHrLn FoHGNrWno9FXK3Ee6+Pgplb mRvYmoK MJAnPPEcBlpQSVfYS3foiwk 4aJZcVNNhEvikOHTfM4NoEO S5JyWGE1DoiVIjzbEhZ8ZiO XRlRGVj g2XvKSg+JbnicKDiDJ5IgOh ARL9xRFXXY/e+j/a6m5QOl6 wCecsjAdmEQAIkgRiWZHfJR 25VG5QL KJsvDBIkAlIQyoQCgpvQxhJ stQIBRQGJviWoCWUqRcFMtb J6oQSENy8pMDrnlduZXavHp 99NMkCn Tv/oTO07+f3e2xHCT/ecc+/ bpfAWPGp1xFF52rn1+ks5hw +e6btLCn2l5aRp6exzrpGkD VZUOn3o Wr/0N7/EqZga3qyA0dVQLQQ /ec+F6Tg/jejVm1DMsSE9Xx TsJl5HLn8Bn57uxZdRQYq14 0VthDP6 SE6ZGZDSBQV2h93El28Oghf CiwV58ZzwX63np2zrUyEHPU /V0HzPW+IWFJ8SMCNl08b5o bg0ogam fIVWJ8GGKXqX5MCk63j4fDR QAR20W/iWTaLTGPS8ntPUCx na5ZimFJ+45LyxJW6lMVMCy /Za9D6D BTf8EdEqmmpowBS/C7Jx3I0 yEc6NV0jMoHa7isuEsv3XI+ k3pP4wOftsw4LlJ+xCWy+c4 8uc7N0x gmtkPEor+KQ70xnIBx7+xlm X8b4H53/gQ/grSSTFJExOok 996NgdNoXcBR9kZXpmGHcoM k3rHSzO NpdGW3xEo7RKhFFF4aHiGG0 T2OSxY82J83pFRyBS4NARMH P28noyZb8zXf0TZmEbx0JGF ZlHGsmT yRPzNMC6Gx6RnFaFg39qabZ So+VLynLlAEqfOp/i3RXOrA LKymYDQwcKdqg0NbVtOJ8Ft qOWbEDZ gN44QjjDNgoQwkSNX+DnfE0 9YbegUjBvGaFCgO6FbUILRR kltkfgqC018aM6vSSrw2bR/ V5q94X4 vJlIR6JceeqRy2nW5rq1Roz xvUg/l21CMNelOZZsxBx4UN 2R3pXe (more content not included)... Normal [facility] Please click on link to see report pdfCD:[id number] JVPbAsp0BKMsZoJQ7scop8H TmrBMRiXTBoKIWmENZJVe1E B4ticsjxIHGuYiGfUGIu KGTqESizfeFfg7SyjZG8KOq qWu6KezIfgB6vSVwJG482sY CmagHmV13wkZ0xQELke04mB w2NowMg sUlaqkXryNEaEVP0JlDdMuW aXhStDFZ4WzQsHEZeRXXlUZ o+HwulluVuYmcQNAQiFP1yq nd5XAyw TFakTNFcJi5qsIEwo4RbeVR 0c1BDG0SvzoKAOO4rIL5Pnu graC9Zr6jxKNAdpHywJQBFV 0ZsYWdz CCMdHw2Sd933OfOdnSYgBHU 1BURoXht8QVAlXZMdFVNrCE 9IO77tl7KmkznIgBN8rCNlD rdZK9V1 QO7XUWz3Nf3SuYTcSvT8QVj fMEIeaYurKX9ifLVuSARkSd 3YFUPDSOcyeTLdKfT6Fu4NV FJkO1q1 FRTsIKqtUABbZU68WLebEBu jTKQmG6EemSZvPsTtKy1ARD SlxT7zSAO0GCztUHO2E2wep GggMTMz YfzgPYUqF4ggcEznJWv9Zg5 +JgPmJA2uqkf1JQZdi6KcCp i4Ja2GdWDpJN3Gw345Lm7Nq HH4cWAc AE0ZgcVhWBxhIGxeHpYpQYI tzdDjM0MaqXNmQBNnqDVCrU LglIMEJErvZhtir9PZdMArN RDyUx1A AUE3Y6zgemXtYCEFO2HbR31 opA1uNZ8LjK7WoxOuWP1tb9 WmwfqIV4MudpOEASLdwvfra E3eAOIc NIXJMp5AtMG3qUNtRgFbHuw gMCAwIDAgMCAwIDAgMCAwID AgMCAwIDAgMAowIDAgMCAwI DAgMCAw IDAgMCAwIDAgMCAwIDAgMCA wCjAgMCAwIDcyMiAwIDAgMC AwIDYxMSAwIDAgMCAwIDAgM CAwCjAg MCAwIDAgNzIyIDAgMCAwIDA gMCAwIDAgMCAwIDAgMAowID LbUSE4CQHbEUB3KYWeBPE1Q TYgMCAw ZKTpPsj8BWRoWHX2SRVcLXq 2UhDjWEQ8YNSyNUGsKVA0ZD D8GZZxMrIpCY5+AfDoYL1ac wq6IRAu t3FmNpl3Er5YcKQeWP7Ty13 0AYCfA9IhiNEpqmdyNy6jiP 6czSPaH5RgwWZuKTINO7ScE WdzIDMy Tx6Np144LbWxoFKvDRG9AMN zPcI0HFJrGQNsZIL0JF6ZS8 3he7RdpyfFsWQ0iPZaXbhXA 0B2IB2X KLg0Sn0EfJGvYgL8VFzrEPH nyKmsKX6enDLmURybN4AoWF MhG7c3RIliLootMPutoJhyp SK7DBaF O1EoO6GmjCY9AJBBX8Jej7I lbnQgLTIxMgovTGVhZGluZy SvZLWVU59cuSmbFQSkAYNtC KSHH2F5 X2ewXEDmMDJ8CSg+PgplbmR zDhlLORBjXU8iwyk6ZZvhTU ruSPCaRg1vcQwzG7EktVotB SAvVHJ1 YUA1gCYMJ6Wql9WFa143WR7 OldmphJ2UMe1GzCBpwFQaFA VpXaJHQ0upu5ONrOKrYMDtX UgsKH4b p0WnirwiT9fpqcDrv6uJkdJ tVQgoGfyvHe3lzTPau6OasZ C9z9PbWiRlOTGHP2hlWIQxx yBbIDI3 DWWjCKBrVEMeBTk6XETyNIZ gMCAwIDAgMCAyNzggMzMzCj U6BYWzLqlaSHG8XZN2HqY9B TYgNTU2 LCD7JnR7SQNzSZJ0MII4OsP 8FRDjXXH7TET3YHDeHJY9EB AyUvX0PYH1WPMnYZC1FmvkD xI7RDpe YrK5KsBtZlW1TIUgXBHiYGt mYkZaSOZfGvZ4MFI2KiB1Fs TDLeJcVYh3CDD3InxiBwf8X DcyMiA2 SjifBsVfPVlePiUwYYe8NDZ qJPQ1AjQdWKOnJJWfUvBfPR IfUSG4MeG2DDZrMMKpBLX9X vL9EZOb Gwb8IIC9IeC9OYNhJwRaXAQ vFHXrGLQiSlA3ToPOBJF1TT T2RzO3COGlJPJ5QTVwNgC4G DAgMjc4 ASU7WhZ3NHNnNxYzLDWrHWA 4MGWeRo4XHC6zc3GmOaluVZ RqOhvNHXeJY1N2yDQaD8Beo nREZXNj rnvpnV5iAw2Ex289AhXnOEH yFWJlKWpkJx8wYR2BPf9BxI BayfQoHkwsMw2xdEBLi3qrJ p40Cavu ZQD5XgCtUOMxLCNnRGOaTv3 VyHYmxM0rL5qyjVdkTox1Fq 7QxFRdYBS4YCoqJ9CswVEuQ mvQR3k9 IJwsQ6SsH6fwVDPIF6JcqIw kvVyulEB4XFTZH1bQAFcavQ RyXSM1Kh2Kw2SmbkCbBOR8L d2GPGRt JA18GG5kYPGHK8ygXEFixyq jXITmKh7SWOtWwAE4nNTnGN JkYm3VwggWmJL8aRH3PsdOK g5BMN2j t4KcPeFxGYWtg5GnIkh5Fl8 XhQLzGR3Uk150Lz5NuVO1jR YkKG2AftEaRPvtKCraXoCuW UZvbnQg J7CamVToPECgzIKWRKwfBfa dn6GNjBRwGYPuYl9KWNP8Z1 ytbhLpPlLMU0RkR29qqE6sS O5LwA2F lnOmMA4qp6OayroNW2SrgxK RZFAlihfjmS6gRSlqOQXVUb 2UeYU9lHLdDuEcFlvxPTOsX II1XxBw IDAgMCAwIDAgMCAwIDAgMCA zMzMKMCAwIDAgMCAwIDAgMC AwIDAgMCAwIDAgMzMzIDAgM CAwCjAg NZYdHLsbBlL7CvMrJyBkYDg tSdT0OpqxBfVfKYu4SAE9Lq JeAdq6FSZyABVdCFacBxk1C jIgNzc4 DEE1IfKeDRyxRbL3HwauFtE pSAcwHkSvBAWxMVK5QxnuOS LyZUNwWQeiGGSnWNH5NGErN jExIDU1 HzG9ROOyTGQ6ZKTlAwLjSHU dKXSqJoziBOQ1FBLvTms0MW j7BCn7ZDUeRoOoCNQhNWWlS CM1RXW9 GYViNxJiISKqJNY3LCRdZZV 0HLO0Yj2+PgplbmRvYmoKMT HfNCYcVazEGPjKW1gjnag2z DEgNTAx HerwUMGqT1BfXTB2SoJOV9H ixNYfduXmT3GrTHKsFXAgl5 RlXQo+QqqodSMlBB2VgZqRL M5dQRPS P/e+j/t4b0ZIy8kSmspjLoi FHUEzeUdSOZsKC60CB3UEZC svDBIkAlIQyoQCgpvQxhJst QIBRQGJ rjZuTJEhSeMWmgD2dXYEFx2 dIJkkabwNIcjNx35NOwPiXm /oTO07+y4h0bBYV/ecc+/bj wABADu0 iPA04hj7+ks5hw+s3cjFNr8 o4lOi3goqinZfUYFYRf5aFy /0N7/JqMbv0nxC6lZJQBZ/e c+F6Tg/ bhaRm1HGuQZ7NzXaVz4KPv7 Wz34vqLxSLIs093NuqYV6JS 4ABHRTVSB5y71Lf31KiivWr mY70Bdq Y57tq0rnMhFAFC/V0HzPW+O PCB8ASLPj61r7oge0yoppzN VDD4YCCGlC5YFc25s7mRYKG R20W/[place] MtDWQRB9okNGHhbe9TalXY+ 85SjaJF1uOJGCw/Bi3Z6UFK z1XiSodqvstSX/Q8Ad3Y6xT n0CB5rQ rLh3xrcGnb1OR+x2sF3jKsr gp9BnA+xCWy+p60xq9N4kja tkPEor+DC61ugIAw9+xlmO3 h2Y78/g Q/soLUCEKCfMqc150DglXzX rUR5vSNrbSIfyTs8cDQyXSx uSN5yGg8QVuLGH8xBbHE2N8 ILjP73H 78yITmTJ4WTOCTH08tmkUu6 iNk8BTnWqj4SPUMsSVzaMzI LfUPB8Ux6JtCnWt66idxWMw +VLynLl AEqfOp/c4ORFvBPEkpQNDgq Yjvt9SrMoJU9SvrBEeCMVdT 38HuyDTtgPhyECJ+CjkB09Y xfgGnYn QxAVfM4HkEOOGCzmvivksD1 23gT7rSLxh8uC/W4g06K8jS cQV1XgecoXs7eY6vf4Datdt Ug/o19I MGcgTHYscRi6CG7O3mQlsos kTnm//EW8qCWS4+sIvEsq6v r0hpJqW3eBjoQr9Z17sv9sg GBdWVhX OZcDgbUzVFqoN2FeYJzwOAp BBHqbD09HplBuQDzRxJe4pY eQNPxJLsNQQR3USWb8KNquE CLHsZb3 ZP8j44mpcU/T93EutnyEjp2 h+atmJJdTJanW6wyxH/RFPJ Ie0DW6vJ2YBu/Lt7fhcIStK UmjJZ/k F3dmEDVVJSktNqp1mQ1ji00 Llu+Si+X58n1Y+6t5mpzUh3 IqkpKhTFWmozQqDymblFZlL 57ofqVf dtf7Xl7rnGVA0td+dUt2EB1 ZugteL9McjM7wa4lLJ9lZxR vsU+1xfNWinI1QYIpHlLR49 mmq2pW8 3W/Q+9AjWZIr0JU7RSQel49 wLNpWqxbDmVaZxz6x83Pjds /XJBtUymdhgbQImpRaKYpdh kNktbyZ mWo97k76CYqLUqxcuX38pSF oM0Q/6dPSEbaehdinmOkVaZ uHjEuFQLxwUJGw6cC3mrRK3 3pRvI2Z JcXkpGs8UPpBvzRLg9iZaDV eljxiz9ttjAMV7fS9nhShT+ 6gU+yJvbCFEIOaYQ6t1Cmmy IgATzT4 /ZikdXlpFtE26XLdJfgUKis cRxI7PFvwhVUAYbR5qMR4oc WXNgxCNwr1mTCHGtTJzxeMJ QpSBcmC JEHEcw/wZ9fdoK2ypxu5F/E x0fTZn2xrsGFUSvTKmL8BiN p7bOhTPxVuJydF51FBdreVV UHPCzoo 7AyApmR4Fv1PxEotShPHzBD ICgKPB/lDxPuIPsRbiLOIM4 vLKYbO9MmHJA2ERhDEM+rLc hNtibb8 1v4c3mAH7zxe6j8mzCysO3r ka7d4UjfktHkKz/rRtX5G2v NsrDZG (more content not included)... Normal [facility] P[facility] Re[facility] Please click on link to see report pdfCD:[id number] GKAnTuw6SQFbKuTM1gdew4U CraFCUcHBHuOUBdZAKZXt7B H8vryzpeJOUjDtErDOMl IFQgHIykygIhg6KuoGX3HLf xZz8QgyAkzM1qLOpQQ169uU QfpeOcG40kpN8kINKsf84gF c1DomKi oNuatcAjoDNuYBU2KnAgZmM bIyXpXIU8UeLtRIEkUGHfWS o+QxfbzjKqKruXHNVwFF2wl dt9KUmt XLnuLWOoIt7byHPqf7DzyUO 4k9IUV0JpklZCIP5gXJ8Kij nxhO3Vg6ywMQCwlMyxANMJA 0ZsYWdz AKPaBx3Al834ElDlfUUjSPG 2PCJfLkh2UMXsCVXqVFHxDT 8ZV16fn8CnhhgGuAW6jDTlE pjQE2F9 DO7ZXTp2Vh3SxVJpOvC3IEg fSNCgoMbpJK9mcGRgMMWdBc 9FOUUUQHadvYUgEbV0Of8MW KReU2b4 RRVzQWzeZTBtXI82ZPcyBIb bRXFdI2EoiMEbBlPjHp7KTZ FqmH7dSWR9IPlaMSS1W1tsn GggMTMz VyppAUIgC1rzpOybKAo7Tw6 +RjJwGS4uius6JMRqv9VgCb p0If5EmLUpQP3Aj890Yw6Qi EM2bUEe GM9RazEgMNlbIOulWePePOZ rikWvL8BlbCBoKQIsyPZZqA NarVUJLLyyTcwyr3TLcWGsN ILgYx0Q HUC7T1ckbxHdMyGFO2CdJ49 qmK6iFR8RnP8DigQqWI6jh7 XsemwCN1WphmIMGUPrqmgnl V5wHVLn RXKUVt1UiWN1xGWpVcFrNlu gMCAwIDAgMCAwIDAgMCAwID AgMCAwIDAgMzMzCjAgMCAwI DAgMCAw IDAgMCAwIDAgMCAwIDMzMyA wIDAgMAowIDAgMCAwIDAgMC R5DiSwUnT5JBPnCFHhKNP3M CAwIDAg PDU7WcOJHNNyLDP0ZaLiJZR gMCAwIDAgMCAwIDAgMCAwID PyUNBgQcWtGTPeUUE5KlCyC NY8PhG5 WMCgSEO4JBVdYpJ8UAVdWKC fNecrYOXaMITrONi0YoTxRY U1JIRuReHpKQYjCzu6JDN1A iAzMzMg MBLtUWJqEVV1KEG9Tq9+Pgp pwaIyWlgVSiEvMU9ncjq9NP bfMMldHPOcCt2kaUFbp9Ayu CX4t6CT E0LnokATXV2aCJ0GzesvpN7 Vj5liESZLN2TkQLgpWOWfGn 6Xn466MeYfiKPeJROhIZCzR qo9CLZo XPDzQVI9Er7JA89nj8Yjriz EnIM0nAFkHssCT9T0ZP0AMT d3Cj3TxHFyYsO5IHjvESLbh EehQR8d zFGwDJpwL9NwVNHgC5k6PGb pPewhZHufrPkumEX0CRoTA6 QpH6InbIS9PUZHS5Cua1Qdw nQgLTIx CkadOREaVHhuXrCwGPNWR48 doLhxMSKiOSWaEIHCS2M6X4 wvVQIaTSZ1FSg+PgplbmRvY moKOCAw SS8ujic0PLaqNWalUXPgJv3 guTmaX5ZncEhnVJLnXRI7IU P8mTSTI5Ehv1QLl793PX4Wt geohT8W x5pmEGVTU6MqmlN4D6kvosZ zMgovTGFzdENoYXIgMTIxCi 1YdlVqHVkdSgIvQ8roFL1yc QAeO48q iF9jQy7Ts855UBMaM7LywRB vfiH1ATWaDwqtF3ewdVdjXI tyKbk9ZILuDPO8TJRqMZAxZ DAgMCAw IDAgMCAwIDAgMAoyNzggMjc 7LPM8XjS6XFDzLGW4HBF8Xl G2PVQgOFM4EKE2MrD8UCChI US2LTT9 NiAzMzMgMCAwIDAKMCAwIDA sNxVdCFrqQjX9JwBkBcTsFC E3UlP3DGMrLjs1KSpsKzXtC zggMCA3 IaStQbPfVNosNnt2SsXdUyu 4UUA6GpVnOMojYeA7GzmnEn OhILgjHjWiPCp2DNIfSWOcM CAwIDAg OPunASWiSGF5SAIeIcAmIYS 0RcE5OYDnXJB0LJEsZhMhYQ JzDOYtWiudTPA7LYNuBcz8M Le0OYg7 WVOfLlArQIWbPJK6DLVxCui 3LRW2KnXkHvTfOmAyOMK5Qj R4ZrecWEI5YSW3Hs0+Pgplb mRvYmoK DBZnIM1qbrq9RPidAKuoEKA oVt5xyJPlq7YdrNO4m5XAK8 KqjzNKIU3nWJ6LosorqJ3SC w4BcDBk xgTuHxbkBo0amXZRa3nlJg4 2NjUgLTMyNSAyMDAwIDEwND MbRf2MqVCyiN2rJ5hjtAzfW wp3Wt3Y xQMcNCD4NYtqK9OusCPtFrz BW1q8KElqN1WaH1qnGXYEH3 LvwQydkRvciPP4BKTBN7oTE WlnaHQg KNM4Mm9Qi8AefoWcGZM3Da1 EAFTfMU92YU6qCDRXX3ycZR FbhgxvLPVsFu5CXRfBoNR7o CAyMDAw Rf3QokiKfYC2yCU0YWALQs9 FBF0jt4VlYyZwSYLtb0OxQu w7Xj0JtWAdCG5Ax892Ma3No YG6bTVa SB1RtiJbWIiiXGctCgHxHUL lwhYsP9XskGRcJYYPP7Cayr K4Z0foqoLtKupdGZYzyUIzC XIgMTIy Nk7TfsDkKHjgAaFwL8zgCK3 bfYLjP86cwM6bXg9Wk932MD CpX9ZxdDUywaI4SMZnPexnB 2lkdGhz JCcfFiw2IQOaGKLcFGTnPUa 3YABiBORsNFSzDIIlUCT2FT DoAvAZPdt3ZEH9AHE3COMeT BT4UDR2 AwN4TPXmLRX4DNS1HbG2JMS mQOK6SRUlRFI5QJG2IVQwDY TuCQkpLHXdGJG3GhgzZjS0T DcyMiA3 VyHtHnO5ICMqEQSmTPXmEbc 5NFXdMBQfZFdaUgn7QcDhXQ G8NntcREZ2CkAaJjE3FTStB UX0VxAn GPG6PSCjCPRpJRNfRNIyZUC BLPRsDNVrXLK4EAX0IcE4ZT JqXDQ0EMZ8CuNcUkrmYZV0S ER9EgZj CuZqNXY2DUIuGxBwSWpcQlt 7OKCxXQA6TKM9BtUmJGGmUj F1CMKpLmo3XUC1AhP5CLRuY zIyIDUw RMH7XSOqENLrSK3+CmVuZG9 uljhhPOWvOD1ipfh1MIodTB VtF3SpBZD8XPUxVo6QQT0so GggMjg0 MAovRmlsdGVyIFsvRmxhdGV EZWNvZGVdCj4+DyF9duSgcX o44wFUlUKC0UI/281U5YQd2 0nKWnjL ZwSWNpIPOYYX4jZVLzzK3NJ 0uVUqkSHzYQgMgZWNOUiRb2 PtGjtJRIEU1VzFBygQNZyYy yGH2J2L i/5Kv5UDUhaNDklu/b33kgy hI9M/+um9cUhn/m8150dugr q3rflyeSWBw2iYGS87/Trtx atRq5G9 QiTlNTTfs+aZh7NFRnyeMpF 6PT6uN04X/+NuopjLROxyY3 137rM8J/RzR1r7lvfIZp4Nt C0Y8OE8 nBSM6xX0s5jHAFYjPe0lZs4 uuQi04isDuV/h/fKxxcc1R9 fKU+B/Cf5a8+f000SXysqnv Pma+ub5 m982FHwEM9xE/23X+W+1TIP UMj/mnNrg4HvhpskFOW4iUW VTO++yfSgHMDAqp0+lHsqmN ZY+hx7C VzU2dB1hzi2XAGxDuTrqD6K 5sNWCmRWjnbVZ/YVynoxo4H 5+mp+6cTPNx7h7mDD9DU0Jy /G20It0 fF7Uy1I7P5dbzG04I1DgnAM usMmQVvYJ6+SZ6FCqfdSPYq 925Psr+pD+yhJZPguxk/CJ5 5utXOzV RbPcNaOcvmNAPyuOrAKz0US Z1liFYdAJV/MdvIMb/LQQEP IbFtjfamw7LUgrlpBJeizOc N+jhVi5 oa8ftLeBnvojWWhAy1YVtx6 psVh9AF0ePP0YSBmtKBUbKl bzZFwsjuD45fXfogmlipVmj SONUmk6 hxPpyMicAYn72lURAUo0XW0 4Xm7tBaoCrpsLM+yK4ee3aO 7SFXQnFmLWNZPNYksgAcgat rqvLV3l q3Ze7YeUzM8rg4nZ+3wCqra dFlWfHU6vC/Jj/G3+Dv+Y9/ LP+EzGRR9twIBsyTIXJUjPe 0M0kPDy MCnLX1udPYpwlT2Hr4nt2IK ovT3dYObYtywsGF/yinMqjU JeJfjeqWislm3u0SWzGNCu7 yKQY/Qy pIc+N+oNEV6VZjieXnoR8MT YjU0dKnmVzVLaWmp0dy6HTr LsdIK5mUamGdjE+6M4tzsLK nFako7D XyVfyJfwlfxx/gR/ir+AE9n FT/IP+MVX3Xu8ACGUXH8sCu YZu9JQRVUiXqKOX7OO8vViJ ejDvkWL d7o32eElwyF+RrnZH4IMhty WMuLDAi7dZtmY4hJ2Dsdsgb fhKfrc0kc5oDTNlenT++Qu+ KR1vfWw JCsTIVOVacpCpUlZrxxWepV I1YFVAyfXhhooSh8rC+nV65 2uf5G4M+f3c5g2wy1Fmihch IWXZj57 NFwdkprzIFA6gjN7RCx0P0e iOKhCPEtLhGXUJNUIUcolOs mMoctCB6IM7eBCuFUyiNUM+ oQDUqo8 2+0kb5O2xCaQnbylvQQwvJz gVYjuYlmBSgXx8YYzQEV6Bf ks43LjxRaMjiGJoObyCfy1q 4gPZF10 R5gLb7OuKd7SQRTF6wIsfY4 0cP5qG85dNHlyuMYAR41eXQ G05GRRrjWp51AwdwhMjsgdm v2nIeR6 AqWQPz7o4bHHo7g8uM17csa hV7uYiOzFx5sUAe5K+TbNsW oLPkDDlc8FDhj9N/iLcFY1D qD51WMn WoMc1BHmAbjRQYVhQ/YBe4E 1AQbjMidPucrrQ1QJa4x55U vcoHee62H51nJd0HIGy472V dcmxSbJ Wd1Txj0wG6Z9sJ1dDtAnjWX 5KQpKmAKdDn8Cb6EYTQ5hhj Ij0TEz (more content not included)... Normal [facility] P[facility] Re[facility] Please click on link to see report pdfCD:[id number] RXLyDyy3CTDgLxSO2ulms7A AptWGEmGAIaTSLeNCDLLn2K H9sizvwlHTGqFzGeSRTt QIQzVArinmZjk6MpmSK9MCs xRh9AwmKbsM9dEGnVV302aF BnsjKaB12txG7yPNJxr85bH i8ZjmHn qPhnotNvwXOkATX4LmCxXpW xMzExNDIxNTItMDUnMDAnKQ o+KjjbpeGiXzvGCZIxQT0rg rq0IUmn UQwkLHVrKh5byDOia4SlwLA 7w8VAY6XsxkTUCB8cWH3Jcc wxfJ2Sx2mbBWFugNwfWIWAA 0ZsYWdz SWSfLy8Fw729LfQfmOErLDW 5RXLsBdr2ORYnTHHvPWMqIR 7NG70pf6BgmsqMoQU5hKGhF xvJC8S4 NM4XLOz6Dj3KxEFvTaI8CLl vHVRdwMgwRX9trHTkRNQhOi 3WELRNMMjgoTAvNgS0At7YK XYdE8z5 HJHvPQkvGBCuRR71VEpnDEe qTCOnC0VbtMCaCiHqPa8VTS BiaK0jEFC8ATuxZXN8X0nhe GggMTMz ZidbRTQbC2lsrVnsJSq3Gr9 +MmDgSR0xiix9AOBcx0ZnXc q9Lv8LqSBnGI3Zb925Sf4Kr VV9oSMa AT7WnrOxBDuwGMrmZjTbUPR dfsMkO2HdsAZiVKPunLIJtT BulPJKIRjdMwizq7TCgASoW DZmRr2V CJS8V1ldptPpYvAKB3XwP53 owK1xVH0YoM5PdgMxZK5wo5 CdagqHM6CqanIDYBBhfgxlx K3xGMOi ETNXCh4HnGV0vFVuEiEjKmn gMCAwIDAgMCAwIDAgMCAwID AgMCAwIDAgMzMzCjAgMCAwI DAgMCAw IDAgMCAwIDAgMCAwIDAgMCA wIDAKMCAwIDAgMCAwIDAgNz EdBPN0GrGoYASeGKVaXjfuQ CAwIDAg ODMzCjAgMCAwIDAgMCAwIDA gMCAwIDAgMCAwIDAgMCAwID WEGWIvRDLjCVM2KKKrBZD5B DYxMSA1 NTYgMzMzIDAgMCAyNzggMCA wEXZ2NKF0EKwQTeLyJLBmDJ MfOAHrQln5ZJVfUbDfPPHtK CAwIDAg RUJ5CW8+NqKeVS5ramj6ZGZ er6YxYzh3Kr9BlGVkFV5Zs8 87WRJyB1WhiGPwfmghTv6qk W9fgVKs Y5NwbVJgKLAazKJAJOklEgq vV8KtGbORI1HimzCRZj71VZ keQmV6ZI1tAyTyIzKsDNIvY UB2RSwz NWzbp6xgT5mtEIJyTBC4MOi gU9DhuSffIfoHR8T6VC4WIN t3Cy0GdIZzrRPBpyudADFyO u5HRTKD TAshyYGdBzT6Um7OJCWnD6v 9WDNaZMzkEZVvNQ48NJywHQ weNWTlU2EttVFuZlQdEq4OO TIyvE4m WTT0RAjvTKB6C9ssdPwwFgY fIUyjTDVzL4pcjBpiDRq2Xk 4+EcGmHV9kiqp0JWJpp2EbY ff7Nm5D fSUjOR6Bn553Mx2BoNJ7dCN rNC0BhvXjSCasCEwzWoFrYP VlykOzF4PdbLBvHWIrrODAF AovRmly q1YXbXAvJKXqUm4QPVK2D3k pfuSjSbBUG0SeG35ldR1mOP 6WoJ1HnsJrXV0cb0QchhhRY 0ZvbnRE CXWqzqorzT8gUNjzSARSHg5 YwCY9dTGaZoScVvfoZQFhOB V8VwFqVLXxFVImRQJhKTQrW DAgMjc4 FIJePfdbOrcqSml4COX4BzI 0KFLyLEA0YCG1OmM8XMEbSY W9GTQiNWO6KES0OwY6SZNpO zMzIDAg DYQeRcAaGOQbPYbzDzC9QpW sKbScHUicUzG1QqofKCG0Ef nzAfGqJNG7LXNlLBweBmN2E TEgODMz EdltIqF8WvwwHmD2SQf3MUF 6MmXsUaC3YMWeUHJ4PtSmNa L5AZw9MNPxECImEfKoMIRtF CAwCjAg MQQeSZG8VhK9JQXcUTI9OUS vQDV2AMSlHiTlUOQnPDZ5AS ThMad5NQTePGI7JJF8PLV6H DkKNjEx OJUzJTC4GFGyLhMzWBX3YLB 0SXKxDjMeBRHySKH4CVXnJm g9BTR6QeL4CCWtFDExSL1+C iGcBZ0q dls9SVRnl6NwOmg3Ry9CnFT pWN4Wt595AANeG7EgyWEakp xmSn8bdB5arQPjJ0AfpQncd mktSXRh bNgtRo8NzIHqzoEuGznnEn7 ucIBYn1qoAi25UjOlADL6Wm YqJbBiTGXoQnHnHh9OjBUsb H6nZ1qf cHrwMeI3Dj0WnTReDGW5PEm vQ7KqaOSkHHUQP7m2FKlqC9 QfM7fzEM1xMDerG7XuVFWbR 3o2RHDy UYboAKocfCaknJK4AlVTP1M dN8ConJK6SNOFC4Orq7Slse FpUYN6NBupWZSaHWudVcPmP sERO29g rQsqXBXlGZJeFzeMD1E9P4l pZHRoIDUyMQo+PgplbmRvYm gDOBOnCKJaDlkZOPkIG0X0y CIwB9Vm gnGYD8U5LfD3rPLxR1KyhWT OyGTsYx3TDKNrOn2zwLWoS7 EygAOeqW3TdUDazQWYV0Jwo zO6W3wg ciAzMgovTGFzdENoYXIgMTI gRv0CheOsVOnnZjMtS5czSL 9dwDPjD11atE2yGz7Ro688K UIiK6Wd bLJfulP0WEEdNserQ8kbuSg iDWbmBsQ4WTFaDPRzPOJzQB AwIDAgMzAzIDMwMyAwIDAgM CAwCjAg Lim2OWTxIVTlFQBdIKIbZYM gMCAwIDAgMCAwIDAgMAowID YfLYH0ZmqrJSJ0HfObGaB3F DAgNDU5 CZByMLT0JiMyWcCoNAIdTDT 8NbHrVUI3XkM0KMA6CXKuHS I4LWZgSTDsXRH6JhX6LWkjY jQyIDAg MCAwIDAgMCAwIDAgMAowIDA pZUC1UPWmUXQ4LFUnUfH1NN XtHZc1TUNvNSP4NFXuILU3H DIyOSAw SUIxXgC7HCg6TJz6ECCtVXO lHKTtIISaAUU7OyAvEMywNo W2CEKiKNW0LUJpILD6ChGpT DQ3XT4+ QkFzUE2qboqcXQKzOU2ykrf 5QWytMJxpIASgPb9ylNCyz6 UocZS3t2DEY1LevrTGGG3pU Z0HKBak DfSzISVogQQKnCSelBGRG9V tYYkbPJNjUk0Gr425MqFgwB SoZFF7EIWcLxP8OPAoWiBbJ IWwDY1X E69dw4PkztbVhPZ8wYXcGzO TK8V9DY9SCPj8Bv9ZnNXdYt N3OKgdXQQdfYqeEJ7ifAUyM KXvMk7T WZYOMNjcmXTdBjK4Gt1KQDF lA9r5KJO9TVdtCKDsKH90MD i5XvizURHeI7NcjZQuQdA2Q w0UJTYj xE5gFTOwLFgfHMX9R6oozFa tVMDzLVsuGRGkB3fkbOdgVC M3Cj4+SrCeLW9uqdjwDlAuE E7owjx5 MVkrRXviXLZvYa3ycBpqG9O moNebCIPvZNA7XKA4gKIPY5 Iho5XPx947VG6FGHdfFeMlR UJvbGRJ aVVzeZHDA8ZjhqA6P1ghayL zMgovTGFzdENoYXIgMTIxCi 1SqcOaZVnpWmLxO7iwUY9ru KLpG35q bV2lHp8Xk252NRGiA6AieWF wpkGpHHZmJBUMS1umEFOfsp BbIDIyNiAwIDAgMCAwIDAgM CAwIDAg MCAwIDAgMCAwCjAgMCAwIDA gMCAwIDAgMCAwIDAgMCAwID X7KjSoLCGbHRtfWJBaKXH6M DYgMCAw WIObWAB3IRgwVIGnDPXhMMG vBQVaICVwWUu8BJwgDYZlCV AwIDAgMCAwIDAgMCAwIDAgM CAwIDAg MCAwCjAgMCAwIDUyOCAwIDQ vDaH2BhrvNFpcRLPbGLEcMG Z5EoJkXFTrPpJ7XLZQBWH5P DUyNyAw CMQxOkDlMOY2APUbPZfiFSX 9FtepXMYrHJF3CL4+Pgplbm RvYmoKMTMgMCBvYmoKPDwKL 0O9zJLg O2QwavTCBULvueaftE3zLc6 Na457OqFsXNRzYMEsMQhNZD zfQpltP6XjVbWAM0SazfHQK l70YCbf LeC9RF2bNqJfNlBgYIZeCNU sFAyrVIqke0hfF8kgVNHfKT Y5RLkiU9AljOseVmeXM8W4W C7SJLp1 Gz6ZkCMufBHOgiknPCJzSa2 DNSYONPdvwHOyDxS5Dm4DVA UuM9f8YBMzHDaxEQFuIS94U DkwNQov IJBhM1NyzYBbWzVoVm4UQST afT9uALM0CIntACT1B8knoF jxIzBkKUpmNGGqO7aqvQacG DQxCj4+ BcZhQT2uozmsUXNyHA0jbag 4DFvzWGmbOYXkDx2woCuhU2 FdxSybLRWpWKH0AXG6jIXLV 1Edh7KJ o475CH7MgxlkkP5BMf9NcJY soGYqRSDrYwYKZ4pqw2CDoC KlYJEqZcqxOA9st1WlvfjeR 1dpbkFu a4zQggXnQGmvBjfuKn6glZX iq7KwzFX0a7CyMVNqUFJENc 1LqNL9lVXcTzVtUvhtJZKeC DAgMCAw LBMjYAKrBRInZQR0CXQxKWM bNwYRLpj6IUK1KIH3LAGbKB Y4YNN7DyU6OVVrGPX3YPY7U kQ3CVEa PBM8WRWvFQKbKkqjEZGyUFA PUROzAMXmPuA6WOA0QxS3Wc OzNlVrHDE8JpO3AMUkEAW8V jIgMjc4 IWVhVCEwVFegHgs2MfYoMAL 7OybeDNS0UcKoNcY8PMAmCU TpEJLiYFMqCDG6OaMgVGCtE CAwCjAg CXThWJS6WfW8MJEjPFCeFAS 0DeZ6MKIzWuc6UBO6DvI1ZW OcOhHnCDKxXXXvSMIoWoH6I zMKNTU2 BAA9JyG4OZQtNZN3REOyUbE 7JRErFzw3MOE8KdA1YCBqEx IyIDUw (more content not included)... [employer] [place] [employer] [facility] Please click on link to see report pdfCD:[id number] NQIhTto5XZVyCyVJ6rnir3F CswAJQkFXDyJZFyGVKVUh9P M9tiymgpVKAcHkGxAMCi IUDoSZgqzlGmg6VroIK6UKq bAa6NygMhzY3sNGiVT439vO YivuEsD49khQ5yOGIuc06vF b2MwvIc kCeisaMsrPBlYXG9ZiCbArM xMzExNDIxMzktMDUnMDAnKQ o+AnqctwAzAavSCWEqET6dz kv2TSrk RGijZUSvDt1zjMBpr5UgvHD 8e1UXG0LptsKRJS1eNM7Tmi oeqE4Mx9rbALQgbNyzHJLHY 0ZsYWdz VRVlBx6Cf948PsFyqHEfPCR 0LJJiYox5NPGlQRQqFSGhEG 4PN53yu2KoyywDmUG8uVFmL ghDU9S1 MW0SFCb4Ug6XgJEzQmP6SId rSTYoaBksRD3xfOOuAWRkPw 2HMZTHKYqydWYbBeL5Uu3WT PFqN8d4 LYJtRQekJNFaKY70OBzuNEa cCKPmE1RbfNHeSeRpFy8OGC GzrS5mCET6FFlrNGN5C0uux GggMTMz EwwgQIJpS4iacWvoDBb7Ab3 +PoQoEC7xevu7TZXge2XtWz v6Yu5AvFBjDZ4Zw969Bq7Je NQ1gJYy OB0IizBiYPxnAKhfWdHyEJS zhqPdM8QbeRFuWZEriNXVtQ CohUICFJpxTjytu8BBsDRjS LHuSb7C WKJ6P9nxqiXfUlEZO0KxO36 uyD6hEG4PuO7NqaSqZY4ad5 QyxbmCZ0OtvjBSTNHwbyqcq Q2rBVIh ESEAXq2FsIY8wVOlHsAyPdj gMCAwIDAgMCAwIDAgMCAwID AgMCAwIDAgMzMzCjAgMCAwI DAgMCAw IDAgMCAwIDAgMCAwIDAgMCA wIDAKMCAwIDAgMCAwIDcyMi AwIDAgNjExIDAgNzIyIDAgM CAwIDAg DREeQhWzPXB1IidfYZN8JqL aFGS7JZLwQRSiZBJmECKlQG MhTSWfMEYJHSYyCBKuXCP4Z DYxMSA1 FKDfGrLyKTI0WjDwVBZeEMD 5VJIpGjw9PTFqPSVxYuhlXB e6AcYqDCD7IQXwAjIyEHLeR fj2GQH2 NiAzMzMgNjExIDAgMCAwIDU 1Nl0+PgplbmRvYmoKNyAwIG 4lsyw3TNizOVvvPPPxMu0iw DVab7Fp nZO5g0RWA2KrcjBBND8tFN3 YyabzhS9VFy7CpXZtbxYgWp cmNa5wmFAPi8khZg75NkYkX TMyNSAy FXArTLQlTYUvAj1DtPCnvN8 lJ3bbpFfrCel0Ih0ClJLmCU C3TBnfC4QfgTUjKwjKF0d0J MxqV1Kn C8ivVFNLC0IsyToswRtztAO 1XUWCV6tESLuyxECeRSR0Ft 9Xk6LejbFrBUN0Ih3WQEKcV U82ED8c AGJHN6izAGHepijmVLJxBo1 HNVqDnXD0aEVzXUOnTg5Erk hMhOF5lSV2GGNTAf5JTO7my 2JqCjgg NTVwGnmCSHuWB2C7pKHuT9J qbeSCV6E2WnD6kKBrB7SufP ZOmHQiCr4CNDDgUa6otZOrA XJpYWxN OUtlMmdxv1WXiKCrIXYmLq3 ROLG0I1hldrQwOpRJZ4LkA1 9wjS5fXU4SaG5TstUjQG0st 2RpbmcK P3QqaoIBIMNvknxjtS4dTHg gACJRRk3BgTS2xDGiXsPyHn ggMCAwIDAgMCAwIDAgMCAwI DAgMCAw VND7MXPdTuAXHdd2SMZ0NSC 3GQCcRQI1LGQ9SmY2DWSrGJ S8FPJ4QvY9IRZeQEV1PHD6V dG2OBBs Otl1PFCbRFSjSrHqUHGvBPH 4OzW1KlhmYlOdSYsoAcN4Fo kqXnBqKPh1UGS2KjRcUjl0S DAgNjY3 ZCH0WdH9FlQNMzOnFIv6KLR 1FuhxBNB1VmAyZbM6ICCuLV Y0QtVjRiI4FUt0UTJxIETwE CAwIDAg KPtuFMOkLOV7HEOmWEA1PLV wMPA2CKNeYDN0THD3EJB3GC LaSRV1MTOvZzNhGLPjGVRzJ jIgODMz VyY1ObI0FHZpVLQ1BWGjOiP vIVIyTIHvYiqfQNH9GRKiXK G4AkUlTZX2EPHsRw0AGN7te 2JqCjkg ERTnUdjHNBsFI3D7wFQgI0W dyeOCZAJzhjnuvS2jQe1Um2 88NxUtLONwGMZqVAqxQm5dP F0OUq1X yZQifmUsCsyfYc9giNAPr1x pFg62JlwjAGQ5HsAbCWMfFI WxZSYqIv7FwTGabH6jP6bcn GggMjc4 Vb3JrQFrCBI9LUhqV2BmySQ pJkoAV0y4HYbbO6ApL8reNQ FJY6BtuXhthVgsnMG8RPLLX 1hIZWln uNReDIH4Fk2Jm0IybiAaZGG 0Kk6RXAUtHY45VN2cHMYHP4 ixYJWrhbpnMZNtHc6NTCaGv CK0sLMz AFZdYg6KcscPiNH3yJL7Vzu GXw7KBO0df9GqIzVqZIIbe3 HsItf3Lw2NlBCbHD8Sv694Z f8MjCI4 aYMbWI7YhbLoPCocVXorCmY iLNSqngBuE3RxyVDaDQKatE KSHHppPjopx9ELbQGzMVKpQ c0WCPE0 G6zkydBhUfRQD1XkN52lhO3 uZI0EnK9HfcYtOK2tf8Gqca qGG2AdssVELAWkvlfslU7wG DkgMCBS Gj6UpBB1vNXbKkDwBoxvXYX mIEM6DmGmAXNeSPYpPRIwOh AzMzMgMCAwIDAgMAoyNzggM CAwIDAg MCAwIDAgMCAwIDAgMCAwIDM uGxLrOEDpSYtiEOZoZGR6Jv QbEvTfOTkwAgX3GhRuIxD4U DYxMSA3 MhqmJeJfPXO5KEHpJAMkSlG uEXvdHeq7SrIrCgs5GUK1Hh M3DwtnAbOtJRC4TdE3TLDiR CAwIDk0 NCAwIDAgNjExIDAgMCAwCjA hXJFrUIR6HhN3RKAgIFK8IH FbWJZ6QYUgOcVxCLQrSMK2T TEgMjc4 UHAfIQG4KHS5DWN4AVkDZxB cCHIpOMM7MPGjWRDoOAuyAJ W8UKQnXjU3OOZjNYD6RTJeL AW1PKL1 Nl0+PgplbmRvYmoKMTEgMCB vMznDIXzFN5uigpi1xSWlHL GqUMuqGBGmZ7KnBYA6TOKXD 0ZpbHRl jeYrQ3DdAPVmJNUrt4OiVMu +NlopzRRgEE3TeWknGX8dIA UVP/e+d95mSWSMwwf72OaFQ CGSgIQP r4EaG6LqU7PM4XEOmxmIvfJ gCEJpKFBwE+xSoh0/gKCigE AnOsUWdQmCDU4aHZz5c8YiQ +PoWOKM IyGkB9E+7wwIGegD7U/9o9O +k9/73XvOeeeec+39y43PNG AhPyUXiJCdJeH0aaWsWKFDf QLo3E5O uxz1lmBQhMJVCLm3UHI7+uO hayqnxrjVvDW57HDOFd4fdK j8e2FIOU2TDDC2S2wBEitp4 bBizbon ExElZBbMUl3aU3hQNHDnboa PFN+G/vzDOepztGji3wCwFT +xtyOkHsyCF4qlFu0NCaNbf +5cily+ IBLm03/bceFfWiZCaliAb+a F1StHucF+LeiTtkC8aaDtpx /xWQTh6cR09V31aViS86NYw Ivpr+wg /exVhFUb8KwvdTNuXBuGhSh v6csnaU+kaCm7Rp/kZ/gZyz lUmryKY3y3g9AIjThcH02Ow 9hp+Gyg 7xRvgLjuTJubEk34lZ9BjMN PWC+mpLvN0wTXqrg8Ch2u7D q6F9uZXkoZtRYVKt2b4LCI4 wkdj7HU SxYW8iNPoJNpsA8RwR1l4Vs OvxOj7O6y7YqZrOnmtiuO2j SlEVEYceyCBFRoRvsuzcPI1 fTIcFRb szK1j3QeNTQ0jhDzk1ZrZ4O FZ/XIgIHIutOAYzj0wuFfon 8WSQ5M5bycCrvo1zpTOU7yn SofxqhE ixB7FD1bvNqENmrio7sslcT +OkRROkm/KJgqn5FOymH69k FmXVPYVLYQEoSsYpvYVsxHy 5Irjs8I QndZ8Zec+5ITFhR5HSC9M1p t/Bl+jL/Lf80/4T38S/61QI YJHFfFU0aMQ1Qt6ntzJhbM2 0N90joh xxKTDGumEuVk+US8NtDfEYM hqyTxl3TGJm2qEFYJIyiiAt cPhYh1GyhEVtjgdLvPlhayh 4RCj7Yd kIHBSkyZyopZCVsACbJFLMR ZkFTb1FOTA6JZ4YE3BNU6TR mQXWR/ML7fH4zfzwi9qKbX1 1fB5/GF fDl/ij/Nn+IzZNb67cB7F53 JNfbwPtQYIyQKKcJowSeUQO KIl9W5mnegCgteEPZ4jU0u0 e0pflxW mPD0gjV5nD+wklwSpHRpsjQ G9dQ9ZK9TFcM43MP8Vz4ir8 0IkaenX8w8j/vkTvkj+ZqSo qQqYyET lRyZLOYVGxviMpbSc4Jnmqs QKE4Toha2QAnUAsqsmb9ep7 /ZF2CqdJM8yG8qcSEUS3204 1gx6xuI upjX3RC6dObK1xz1SQQMFzy GZ3NI2UhUDmAYUAxSMdfo8V gLEN1aE6I47ECHExiTL1I4Z N2eT/6M xYeKz2NPm0UcUGV21ZKEOEH fQktNx2BxfYuY3dmsl96Mqp sn0OWWEgdddF5v4IUuDXM28 87yMaxF hl77XnOKTwkTiaxp5Tt5sK4 0hCEnbtsEKNv4rALQ0dIOCH hLM4oStvPoL9/naGkuaItF7 XsCj5o3 bPaSQf1n3fr41vkbo54wIbA dBEwkKrb8NoCWNGEveHiNOz i7IJBi9kfki9JF8SxMj7J8j CKH70Aw QAdwBDgIvAzsA/CWy3XNXCc BYhl6Jm2xc+2t2fEGU9w2kM GIckkjF6XJc8n517V4csFnN Ro8FqT2 oc6TOzJ0uZrPm0VH6T8wZDT IgCg5Xe3U5rA1hdoNrbHLiS gXW+st (more content not included)... Normal [facility] Blood Urea Nitrogenon 2022 Urea nitrogen [Mass/Vol] 30 mg/dL High 12-06 [facility] Comment on above: Performed By: #### C REMAY, BUN #### [facility] [address] [place] [address] [place] Creatinineon 04-07-2022 Creatinine [Mass/Vol] 1.21 mg/dL High 0.44-1.03 [facility] Comment on above: Performed By: #### C REAT, BUN #### [facility] [address] [place] [address] [place] Creatinine Clr Calc Pharmacy 46.76 [facility] Comment on above: Result Comment: PERF ORMED BY: [place] [address] PATHOLOGIST DIRECTOR [employer] AIRAM ROMEO M.D. Performed By: #### C REAT, BUN #### [facility] [address] [place] [address] [place] Estimated GFR ( Laura 53 [facility] Comment on above: Result Comment: GFR estimated reference range: According to KDOQI guidelines, <60 ml/min/1.73m2 is sufficient to diagnose a patient with chronic kidney disease. Performed By: #### C REAT, BUN #### [facility] [address] [id number] [place] Estimated GFR (Non- Am 44 Normal [facility] Comment on above: Performed By: #### C REAT, BUN #### [facility] [address] [id number] [place] Creatinine and Glomerular fi ltration rate.predicted panel (S/P/Bld)Ordered By: Miguel Membreno on 04-07-2022 Creatinine [Mass/Vol] 1.21 mg/dL 0.44-1.03 [facility] Estimated glomerular filtrat ion rate (GFR) non- AmericanOrdered By: Miguel Membreno on 04-07-2022 GFR/1.73 sq M.predicted among non-blacks MDRD (S/P/Bld) [Vol rate/Area] 44 mL/Min [facility] No Panel InformationOrdered By: Miguel Membreno on 04-07-2022 Estimated GFR () 53 mL/Min [facility] Comment on above: GFR estimated refere nce range: According to KDOQI guidelines, <60 ml/min/1.73m2 is sufficient to diagnose a patient with chronic kidney disease. Pharmacy Creatinine Clearance (Chem 46.76 [facility] Serum or plasma urea nitroge n measurement (mass/volume)Ordered By: Miguel Membreno on 04-07-2022 Urea nitrogen [Mass/Vol] 30 mg/dL 12-06 [facility] CHEMISTRYOrdered By: Genaro Rivera on 03-31-2022 Albumin Elph (U) [Mass fraction] mg/dL Invalid Interpretation Code [facility] Remisol Creatinine (U) [Mass/Vol] 95.7 mg/dL Invalid Interpretation Code [facility] Remisol U Prot/Creat Ratio UT Invalid Interpretation Code 0.00 - 200.00 [facility] Remisol CHEMISTRYOrdered By: SYSTEM SYSTEM on 03-31-2022 Albumin [Mass/Vol] 3.7 g/dL Normal 3.3 - 5.0 gm/dL [facility] Remisol Anion gap [Moles/Vol] 16 mmol/L Normal 6 - 16 mEq/L [facility] Remisol Calcium [Mass/Vol] 8.8 mg/dL Low 8.9 - 11.1 mg/dL [facility] Remisol Chloride [Moles/Vol] 103 mmol/L Normal 101 - 111 mmol/L [facility] Remisol CO2 [Moles/Vol] 25 mmol/L Normal 21 - 31 mmol/L [facility] Remisol Creatinine [Mass/Vol] 1.4 mg/dL High 0.5 - 1.3 mg/dL [facility] Remisol GFR/1.73 sq M.predicted among blacks MDRD (S/P/Bld) [Vol rate/Area] 45 mL/min/1.73 m2 Low >=59mL/min/1.73 m2 [facility] Chem S GFR/1.73 sq M.predicted among non-blacks MDRD (S/P/Bld) [Vol rate/Area] 37 mL/min/1.73 m2 Low >=59mL/min/1.73 m2 [facility] Chem S Glucose [Mass/Vol] 203 mg/dL High 55 - 199 mg/dL [facility] Remisol Magnesium [Mass/Vol] 2.1 mg/dL Normal 1.3 - 2.4 mg/dL [facility] Remisol Phosphate [Mass/Vol] 4.7 mg/dL High 1.9 - 4.6 mg/dL [facility] Remisol Potassium [Moles/Vol] 3.8 mmol/L Normal 3.5 - 5.3 mmol/L [facility] Remisol Sodium [Moles/Vol] 140 mmol/L Normal 135 - 145 mmol/L [facility] Remisol Urea nitrogen [Mass/Vol] 29 mg/dL High 5 - 21 mg/dL [facility] Remisol Urea nitrogen/Creatinine [Mass ratio] 21 mg/mg High 10 - 20 [facility] Remisol HEMATOLOGYOrdered By: Chai Reid on 03-31-2022 Hematocrit (Bld) [Volume fraction] 39.5 % Normal 34.0 - 46.0 % [facility] HemeAutoSS Hemoglobin (Bld) [Mass/Vol] 12.6 g/dL Normal 12.0 - 16.0 gm/dL [facility] HemeAutoSS Reference Laboratory Testing Ordered By: Angelica Casas on 03-31-2022 Test Code 773614 Invalid Interpretation Code [facility] SendOutsSS Test Code 282892 Invalid Interpretation Code [facility] SendOutsSS Test Name MPO AB Invalid Interpretation Code [facility] SendOutsSS Test Name PR3 AB Invalid Interpretation Code [facility] URINALYSISOrdered By: Elizabeth Rosas on 03-31-2022 [...] AM) Normal Negative [facility] UA Auto SS [place].plasma/Lith ium.RBC (Bld) [Mass ratio] 0-3 /HPF Normal [...] [facility] UA Auto SS Urobilinogen Qn (U) 0.0970493 {Donell'U}/dL Normal 0.0 - 1.0 EU/dL [facility] UA Auto SS WBC Auto Ql (U) Negative (03/31/22 7:43 AM) Normal Negative [facility] UA Auto SS WBC LM.HPF (Urine sed) [#/Area] 0-5 /HPF Normal 0-5/HPF [facility] UA Auto SS US ankle/arm indiceson 03-31 US ankle/arm indices [facility] Main [address] [address] Ultrasound Report Signed Patient: Evon Corcoran MR#: [id number] : 1950 Acct:[id number] Age/Sex: 71 / F ADM Date: 03/31/22 Loc: [facility] Room: Type: [facility] Attending Dr: Miguel Membreno MD Ordering Provider: Miguel Membrneo MD Date of Service: 03/31/22 US/US ankle/arm [...] Miguel Membreno M.D.03/31/2022 3:38 PM Dictation Location: [place] [address] Tech: Christy Florian Transcribed By: PWS 03/31/22 153 Dictated By: Miguel Membreno MD 03/31/22 1537 Signed By: 03/31/22 1538 Normal [facility] CHEMISTRYOrdered By: Jenni Lazaro on 02-12-2022 HbA1c (Bld) [Mass fraction] 9.3 % High <=5.9% [facility] ChemAutoSS Office Visit (Cardiology)on 01-15-2022 Follow-up visit Diagnoses/Problems Assessed Atherosclerosis of tanana coronary artery of tanana heart without angina pectoris (414.01) (I25.10) Status [...] vein thrombosis (453.40) (I82.409) Orders Atherosclerosis of tanana coronary artery of tanana heart without angina pectoris Renew: Aspirin EC [...] complications. 5. Diabetes, managed by endocrinology in [place]. A1c remains above target 6. Hypertension completely under control. 7. High-risk medication with Xarelto, so far well-tolerated. Takes baby aspirin twice weekly 8. Stage III chronic kidney disease to be monitored closely 9. Recent diagnosis of intermittent claudications and PAD followed by vascular surgery Dr. Daniel in [place], she is currently going through walking exercise program Fariha Guidry MD, [facility] Current Meds Medication NameInstruction amLODIPine [...] and no (more content not included)... Normal [employer] Tobacco Screening.on 022 Fall risk assessment a) No falls within the last year [facility] [employer] 600 DO Work Phone: Tobacco use status [facility] b) No [facility] [employer] 600 DO Work Phone: CHEMISTRYOrdered By: Lab ROP User on 01-06-2022 Glucose [Mass/Vol] 166 mg/dL High 55 - 99 mg/dL [facility] C POC Subsection POC Device SN Invalid Interpretation Code [facility] POC Subsection POC User ID [id number] Invalid Interpretation Code [facility] POC Subsection POC Username ROSSY ZEPEDA Invalid Interpretation Code [facility] POC Subsection Glucose [Mass/Vol] 166 mg/dL High 55 - 99 mg/dL [facility] C POC Subsection Comment on above: Result Comment: Rain evert Meter POC Device SN [id number] Invalid Interpretation Code [facility] POC Subsection POC User ID [id number] Invalid Interpretation Code [facility] POC Subsection POC Username ROXANA MILES Invalid Interpretation Code [facility] POC Subsection CHEMISTRYOrdered By: Lab ROP User on 01-01-2022 Glucose [Mass/Vol] 185 mg/dL High 55 - 99 mg/dL F[facility] C POC Subsection Comment on above: Result Comment: Rain evert Meter POC Device SN [id number] Invalid Interpretation Code [facility] POC Subsection POC User ID [id number] Invalid Interpretation Code [facility] POC Subsection POC [...] g/dL Normal 6.0 - 7.8 gm/dL [facility] Remisol Sodium [Moles/Vol] 138 [...] a) No falls within the last year -[facility] 600 DO Work Phone: Heart Rate Regular [facility] 600 DO Work Phone: Office Visit [...] Vital Signs Recorded: 28May2021 12:25PMRecorded: 28May2021 12:21PM [id number], LUE, Ovpuxoi641, RUE, Sitting Bssamnsii55, LUE, Wizrfky86, RUE, Sitting Heart Rate68, R Radial Pulse QualityRegular, R Radial Height5 ft 5 in Lzarfj260 lb 3.2 oz BMI Rzhsgqrwrm79.98 kg/m2 BSA Calculated2 Fall Screeninga) No falls within the last year Signatures Electronically signed by : Fariha Guidry MD; May 28 2021 3:34PM EST (Author) Normal [facility] Laboratory - Chemistry and C hemistry - challengeon 05-11-2021 Cholesterol [Mass/Vol] 96 mg/dL Normal <=129 [facility] [employer] DO Work Phone: Cholesterol in LDL [Mass/Vol] 39 mg/dL Normal 7-40 [facility] [employer] DO Work Phone: CO2 [Moles/Vol] 24 mmol/L Normal 21-31 [facility] feliz [facility] DO Work Phone: Glucose [Mass/Vol] 217 mg/dL above high threshold 55-199 [facility] feliz [facility] DO Work Phone: Comment on above: If this glucose resu lt represents a fasting glucose, interpretation should refer to the following reference range: 55-99 mg/dL Laboratory - Hematology and Cell countson 05-11-2021 Erythrocyte distribution width (RBC) [Ratio] 13.2 % Normal 10.9-14.2 [facility] [employer] DO Work Phone: Hematocrit (Bld) [Volume fraction] 39.5 % Normal 34.0-46.0 [facility] [employer] DO Work Phone: Platelet mean volume (Bld) [Entitic vol] 11.0 fL above high threshold 6.4-10.8 [facility] Heart-KnCMinerlinnea fel[employer] 250 DO Work Phone: No Panel Informationon 05-11 14 {mEq/L} Normal 6-16 [facility] [employer] fel[employer] 250 DO Work Phone: 102 mmol/L Normal 101-111 [facility] feliz 250 DO Work Phone: 4.2 mmol/L Normal 3.5-5.3 [facility] [employer] fel[employer] 250 DO Work Phone: 136 mmol/L Normal 135-145 [facility] [employer] feliz 250 DO Work Phone: 8.9 mg/dL Normal 8.9-11.1 [facility] [employer] feliz 250 DO Work Phone: 25 {No_Units} above high threshold 10-20 [facility] [employer] feliz 250 DO Work Phone: 1.0 mg/dL Normal 0.5-1.3 [facility] feliz 250 DO Work Phone: 25 mg/dL above high threshold 5-21 [facility] [employer] feliz 250 DO Work Phone: >60 Normal >=59 [facility] [employer] feliz 250 DO Work Phone: Comment on above: eGFR is race adjuste d. AA=. 55 {mL/min/1.73_m2} below low threshold >=59 [facility] Heart-KnCMinerlinnea feliz 250 DO Work Phone: Comment on above: Chronic kidney disea se could be indicated at eGFR's of less than 60 mL/min/1.73m2. Kidney failure is indicated at less than 15 mL/min/1.73m2. 54 {Int._Unit/L} above high threshold 6-46 [facility] fel[employer] 250 DO Work Phone: 67 {Int._Unit/L} above high threshold 5-43 [facility] nWayTorie feliz 250 DO Work Phone: 197 mg/dL above high threshold <=149 [facility] [employer]WayLexi feliz 250 DO Work Phone: 49 mg/dL [facility] 250 DO Work Phone: Comment on above: HDL > or equal to 60 mg/dL: Low cardiovascular riskHDL < 40 mg/dL : High cardiovascular risk 193 mg/dL Normal 120-200 [facility] nWayTorie felzi 250 DO Work Phone: 229.0 {E9/L} Normal 150.0-500.0 [facility] [employer]WayLexi feliz 250 DO Work Phone: Comment on above: Slide reviewed by BR Platelet count verified using smear estimate. 85.4 fL Normal 80.0-100.0 [facility] feliz 250 DO Work Phone: 33.5 {gm/dL} Normal 31.4-36.0 [facility] nWayLexi feliz 250 DO Work Phone: 28.7 pg Normal 27.0-34.0 [facility] 250 DO Work Phone: 13.2 {gm/dL} Normal 12.0-16.0 [facility] 250 DO Work Phone: 4.6 {E12/L} Normal 4.3-5.9 [facility] 250 DO Work Phone: 6.7 {E9/L} Normal 4.0-11.0 [facility] DO Work Phone: Office Visit (Cardiology)on 05-08-2021 Follow-up visit Diagnoses/Problems Assessed Atherosclerosis of tanana coronary artery of tanana heart without angina pectoris (414.01) (I25.10) Chronic kidney disease, stage 3 (585.3) (N18.30) Deep vein thrombosis (453.40) (I82.409) Essential hypertension (401.9) (I10) High risk medication use (V58.69) (Z79.899) Hyperlipidemia (272.4) (E78.5) Status post coronary angioplasty (V45.82) (Z98.61) Never a smoker Class 1 obesity with body mass index (BMI) of 34.0 to 34.9 in adult (278.00,V85.34) (E66.9,Z68.34) Orders Atherosclerosis of tanana coronary artery of tanana heart without angina pectoris Renew: Aspirin EC 81 MG Oral Tablet Delayed Release; TAKE ONE TABLET THURSDAY AND THURSDAY Renew: Losartan Potassium 50 MG Oral Tablet; TAKE 1 TABLET TWICE DAILY Atherosclerosis of tanana coronary artery of tanana heart without angina pectoris, Chronic kidney disease, stage 3, High risk medication use Basic Metabolic Panel; Status:Active - Retrospective Authorization; Requested for:[id number]; Complete Blood Count; Status:Active - Retrospective Authorization; Requested for:[id number]; Atherosclerosis of tanana coronary artery of tanana heart without angina pectoris, Essential hypertension Renew: Metoprolol Succinate ER 50 MG Oral Tablet Extended Release 24 Hour; TAKE 1 TABLET Daily Atherosclerosis of tanana coronary artery of tanana heart without angina pectoris, Hyperlipidemia ALT - Alanine Aminotransferase, Serum; Status:Active - Retrospective Authorization; Requested for:[id number]; AST; Status:Active - Retrospective Authorization; Requested for:[id number]; Lipid Panel; Status:Active - Retrospective Authorization; Requested for:[id number]; Class 1 obesity with body mass index (BMI) of 34.0 to 34.9 in adult Healthy Weight Tips; Status:Complete - Retrospective Authorization; Done: [id number] Deep vein thrombosis Start: Xarelto 10 MG Oral Tablet; Take 1 tablet daily Essential hypertension Start: amLODIPine Besylate 5 MG Oral Tablet (Norvasc); TAKE 1 TABLET DAILY SocHx: Never a smoker Tobacco Use Screening; Status:Complete; Done: [id number] Unlinked Stop: Xarelto 20 MG Oral Tablet [...] to be monitored closely Fariha Guidry MD, [facility] Surgical History Problems History of Angioplasty History of Cholecystectomy History of Colonoscopy History of Hysterectomy Past Medical History Problems History of angina pectoris (V12. (more content not included)... Normal [employer] Tobacco Screening.on 022 Adult depression screening assessment No [facility] [employer] 250 DO Work Phone: Fall risk assessment a) No falls within the last year [facility] [employer] 250 DO Work Phone: Tobacco use status [facility] b) No [facility] [employer] 250 DO Work Phone: Vital Signs Date Time Vital Sign Value Performing Clinician Facility 04-10-2023 09:19-0500 Body temperature 98.42 [degF] [facility] 04-10-2023 09:19-0500 Diastolic blood pressure 68 mm[Hg] [facility] 04-10-2023 09:19-0500 Heart rate 82 /min [facility] 04-10-2023 09:19-0500 Respiratory rate 16 /min [facility] 04-10-2023 09:19-0500 SaO2% (BldA) [Mass fraction] 97 % [facility] 04-10-2023 09:19-0500 Systolic blood pressure 168 mm[Hg] [facility] 03-20-2023 09:00-0500 Blood Pressure Location Christopher GLOLE [facility] 03-20-2023 09:00-0500 Body temperature 98.42 [degF] Christopher KAPLE [facility] 03-20-2023 09:00-0500 Diastolic blood pressure 80 mm[Hg] Christopher KAPLE [facility] 03-20-2023 09:00-0500 Heart rate 70 /min Christopher KAPLE [facility] 03-20-2023 09:00-0500 Respiratory rate 16 /min Christopher KAPLE [facility] 03-20-2023 09:00-0500 SaO2% (BldA) [Mass fraction] 99 % Christopher RUSSELL [facility] 03-20-2023 09:00-0500 Systolic blood pressure 132 mm[Hg] Christopher RUSSELL [facility] 03-04-2023 09:09-0500 Heart rate 80 /min Nicola Tapia [facility] 03-04-2023 09:09-0500 SaO2% (BldA) [Mass fraction] 99 % Nicola Tapia [facility] 03-04-2023 09:09-0500 Diastolic blood pressure 67 mm[Hg] Nicola Tapia [facility] 03-04-2023 09:09-0500 Mean blood pressure 91 mm[Hg] Nicola Tapia [facility] 03-04-2023 09:09-0500 Systolic blood pressure 138 mm[Hg] Nicola Tapia [facility] 03-04-2023 09:09-0500 Respiratory rate 16 /min Nicola Tapia [facility] 03-04-2023 09:04-0500 Diastolic blood pressure 96 mm[Hg] Nicola Tapia [facility] 03-04-2023 09:04-0500 Heart rate 84 /min Nicoal Tapia [facility] 03-04-2023 09:04-0500 SaO2% (BldA) [Mass fraction] 98 % Nicola Tapia [facility] 03-04-2023 09:04-0500 Systolic blood pressure 165 mm[Hg] Nicola Tapia [facility] 03-04-2023 08:12-0500 Heart rate 82 /min Nicola Tapia [facility] 03-04-2023 08:12-0500 SaO2% (BldA) [Mass fraction] 97 % Nicola Tapia [facility] 03-04-2023 08:12-0500 Diastolic blood pressure 75 mm[Hg] Nicola Tapia [facility] 03-04-2023 08:12-0500 Mean blood pressure 103 mm[Hg] Nicola Tapia [facility] 03-04-2023 08:12-0500 Systolic blood pressure 159 mm[Hg] Nicola Tapia [facility] 03-04-2023 08:12-0500 Body temperature 98.42 [degF] Nicola Tapia [facility] 03-04-2023 08:11-0500 Respiratory rate 14 /min Nicola Tapia [facility] 03-03-2023 11:45-0500 Body height 165.1 cm Miguel Membreno Other [place] [place] Other 03-03-2023 11:45-0500 Body mass index (BMI) [Ratio] 33.28 kg/m2 Miguel Membreno Other [place] [place] Other 03-03-2023 11:45-0500 Body temperature 97.8 [degF] Miguel Membreno Other [place] [place] Other 03-03-2023 11:45-0500 Body weight 90.72 kg Miguel Membreno Other [place] Other 03-03-2023 11:45-0500 Diastolic blood pressure 72 mm[Hg] Miguel Membreno Other [place] [place] Other 03-03-2023 11:45-0500 SaO2% (BldA) [Mass fraction] 96 % Miguel Membreno Other [facility] [email or web address] Other 03-03-2023 11:45-0500 Systolic blood pressure 124 mm[Hg] Miguel Membreno Other [facility] [email or web address] Other 02-18-2023 13:40-0500 Diastolic blood pressure 70 mm[Hg] DO Christopher Kaple Work Phone: [facility] 02-18-2023 13:40-0500 Heart rate 64 /min DO Christopher Kaple Work Phone: [facility] 02-18-2023 13:40-0500 Respiratory rate 16 /min DO Christopher Kaple Work Phone: [facility] 02-18-2023 13:40-0500 SaO2% (BldA) [Mass fraction] 98 % DO Christopher Kaple Work Phone: [facility] 02-18-2023 13:40-0500 Systolic blood pressure 169 mm[Hg] DO Christopher Kaple Work Phone: [facility] 02-18-2023 12:40-0500 Inhaled oxygen flow rate 1 L/min DO Christopher Kaple Work Phone: [facility] 02-18-2023 09:15-0500 Body height 165.1 cm DO Christopher Kaple Work Phone: [facility] 02-18-2023 09:15-0500 Body weight 97.52 kg DO Christopher Kaple Work Phone: [facility] 02-16-2023 13:23-0500 Heart rate 76 /min Gary Prashant [facility] 02-16-2023 13:23-0500 SaO2% (BldA) [Mass fraction] 96 % Gary Prashant [facility] 02-16-2023 13:22-0500 Diastolic blood pressure 80 mm[Hg] Gary Cerda [facility] 02-16-2023 13:22-0500 Mean blood pressure 105 mm[Hg] Gary Cerda [facility] 02-16-2023 13:22-0500 Systolic blood pressure 155 mm[Hg] Gary Cerda [facility] 02-16-2023 13:22-0500 Body temperature 97.7 [degF] Gary Cerda [facility] 02-16-2023 13:21-0500 Respiratory rate 16 /min Gary Cerda [facility] 02-12-2023 09:03-0500 Body height 165.1 cm Fariha Guidry MD Work Phone: [facility] 02-12-2023 09:03-0500 Body mass index (BMI) [Ratio] 35.78 kg/m2 Fariha Guidry MD Work Phone: [facility] 02-12-2023 09:03-0500 Body weight 97.52 kg Fariha Guidry MD Work Phone: [facility] 02-12-2023 09:03-0500 Diastolic blood pressure 64 mm[Hg] Fariha Guidry MD Work Phone: [facility] 02-12-2023 09:03-0500 Heart rate 64 /min Fariha Guidry MD Work Phone: [facility] 02-12-2023 09:03-0500 Systolic blood pressure 120 mm[Hg] Fariha Guidry MD Work Phone: [facility] 01-26-2023 08:00-0500 Blood Pressure Location Christopher WELLS [facility] 01-26-2023 08:00-0500 Body temperature 98.6 [degF] Christopher KAPLE [facility] 01-26-2023 08:00-0500 Diastolic blood pressure 72 mm[Hg] Christopher KAPLE [facility] 01-26-2023 08:00-0500 Heart rate 65 /min Christopher KAPLE [facility] 01-26-2023 08:00-0500 SaO2% (BldA) [Mass fraction] 96 % Christopher KAPLE [facility] 01-26-2023 08:00-0500 Systolic blood pressure 124 mm[Hg] Christopher KAPLE [facility] 01-06-2023 08:13-0400 Diastolic blood pressure 78 mm[Hg] Gary Prashant [facility] 01-06-2023 08:13-0400 Heart rate 69 /min Gary Prashant [facility] 01-06-2023 08:13-0400 Mean blood pressure 107 mm[Hg] Gary Prashant [facility] 01-06-2023 08:13-0400 Respiratory rate 14 /min Gary Prashant [facility] 01-06-2023 08:13-0400 Systolic blood pressure 166 mm[Hg] Gary Prashant [facility] 01-05-2023 09:15-0400 Body height 165.1 cm Miguel Membreno Other [place] [place] Other 01-05-2023 09:15-0400 Body mass index (BMI) [Ratio] 33.28 kg/m2 Miguel Buehrer Other [place] [place] Other 01-05-2023 09:15-0400 Body temperature 96.3 [degF] Miguel Buehrer Other [place] [place] Other 01-05-2023 09:15-0400 Body weight 90.72 kg Miguel Maierehrer Other [place] [place] Other 01-05-2023 09:15-0400 Diastolic blood pressure 62 mm[Hg] Miguel Buehrer Other [place] [place] Other 01-05-2023 09:15-0400 SaO2% (BldA) [Mass fraction] 97 % Miguel Buehrer Other [place] [place] Other 01-05-2023 09:15-0400 Systolic blood pressure 120 mm[Hg] Miguel Buehrer Other [facility] Other 11-04-2022 12:00-0400 Body height 165.1 cm Miguel Martinezrer Other [facility] Other 11-04-2022 12:00-0400 Body mass index (BMI) [Ratio] 33.28 kg/m2 Miguel Maierehrer Other [facility] Other 11-04-2022 12:00-0400 Body temperature 97.1 [degF] Miguel Buehrer Other [place] Other 11-04-2022 12:00-0400 Body weight 90.72 kg Miguel Maierehrer Other [place] [place] Other 11-04-2022 12:00-0400 Diastolic blood pressure 70 mm[Hg] Miguel Butcherr Other [facility] Other 11-04-2022 12:00-0400 SaO2% (BldA) [Mass fraction] 95 % Miguel Membreno Other [place] Other 11-04-2022 12:00-0400 Systolic blood pressure 140 mm[Hg] Miguel Membreno Other [place] [place] Other 11-03-2022 10:30-0400 Body height 165.1 cm Renetta Barahona Other [place] [place] Other 11-03-2022 10:30-0400 Body mass index (BMI) [Ratio] 33.28 kg/m2 Renetta Barahona Other [place] Other 11-03-2022 10:30-0400 Body temperature 97.6 [degF] Renetta Barahona Other [place] [place] Other 11-03-2022 10:30-0400 Body weight 90.72 kg Renetta Barahona Other [place] Other 11-03-2022 10:30-0400 Diastolic blood pressure 76 mm[Hg] Renetta Barahona Other [place] Other 11-03-2022 10:30-0400 SaO2% (BldA) [Mass fraction] 98 % Renetta Barahona Other [place] Other 11-03-2022 10:30-0400 Systolic blood pressure 116 mm[Hg] Renetta Barahona Other [facility] [email or web address] Other 09-10-2022 08:12-0400 Blood Pressure Location Lindajahaira MeltonOsmin [facility] 09-10-2022 08:12-0400 Body temperature 96.8 [degF] Linda Osmin [facility] 09-10-2022 08:12-0400 Diastolic blood pressure 71 mm[Hg] Linda Osmin [facility] 09-10-2022 08:12-0400 Heart rate 56 /min Linda Osmin [facility] 09-10-2022 08:12-0400 Systolic blood pressure 118 mm[Hg] Linda Osmin [facility] 06-11-2022 09:10-0400 Diastolic blood pressure 70 mm[Hg] Linda Somin [facility] 06-11-2022 09:10-0400 Mean blood pressure 92 mm[Hg] Linda Osmin [facility] 06-11-2022 09:10-0400 Systolic blood pressure 136 mm[Hg] Linda Osmin [facility] 06-11-2022 09:04-0400 Blood Pressure Location Linda Osmin [facility] 06-11-2022 09:04-0400 Body temperature 97.88 [degF] Linda Osmin [facility] 06-11-2022 09:04-0400 Diastolic blood pressure 75 mm[Hg] Linda Osmin [facility] 06-11-2022 09:04-0400 Heart rate 66 /min Linda Solorio [facility] 06-11-2022 09:04-0400 Systolic blood pressure 155 mm[Hg] Linda Solorio [facility] 05-05-2022 09:45-0500 Body height 165.1 cm Miguel Membreno Other [facility] [place] Other 05-05-2022 09:45-0500 Body mass index (BMI) [Ratio] 33.28 kg/m2 Miguel Membreno Other [place] Other 05-05-2022 09:45-0500 Body temperature 96.2 [degF] Miguel Membreno Other [place] [place] Other 05-05-2022 09:45-0500 Body weight 90.72 kg Miguel Membreno Other [place] Other 05-05-2022 09:45-0500 Diastolic blood pressure 60 mm[Hg] Miguel Membreno Other [place] Other 05-05-2022 09:45-0500 SaO2% (BldA) [Mass fraction] 97 % Miguel Membreno Other [place] Other 05-05-2022 09:45-0500 Systolic blood pressure 112 mm[Hg] Miguel Membreno Other [place] [place] Other 04-07-2022 20:00-0500 Diastolic blood pressure 80 mm[Hg] DO Christopher Wells Work Phone: [facility] 04-07-2022 20:00-0500 Heart rate 70 /min DO Christopher Kaple Work Phone: [facility] 04-07-2022 20:00-0500 Respiratory rate 18 /min DO Christopher Kaple Work Phone: [facility] 04-07-2022 20:00-0500 SaO2% (BldA) [Mass fraction] 98 % DO Christopher Kaple Work Phone: [facility] 04-07-2022 20:00-0500 Systolic blood pressure 159 mm[Hg] DO Christopher Kaple Work Phone: [facility] 04-07-2022 17:05-0500 Body temperature 98.1 [degF] DO Christopher Kaple Work Phone: [facility] 04-07-2022 16:20-0500 Inhaled oxygen flow rate 2 L/min DO Christopher Kaple Work Phone: [facility] 04-07-2022 13:53-0500 Body height 165.1 cm DO Christopher Kaple Work Phone: [facility] 04-07-2022 13:53-0500 Body weight 90.71 kg DO Christopher Kaple Work Phone: [facility] 03-31-2022 10:15-0500 Body height 165.1 cm Renetta Barahona Other [facility] [place] Other 03-31-2022 10:15-0500 Body mass index (BMI) [Ratio] 33.28 kg/m2 Renetta Barahona Other [place] Other 03-31-2022 10:15-0500 Body temperature 98.7 [degF] Renetta Barahona Other [place] [place] Other 03-31-2022 10:15-0500 Body weight 90.72 kg Renetta Barahona Other [place] Other 03-31-2022 10:15-0500 Diastolic blood pressure 82 mm[Hg] Renetta Barahona Other [place] [place] Other 03-31-2022 10:15-0500 SaO2% (BldA) [Mass fraction] 98 % Renetta Barahona Other [place] Other 03-31-2022 10:15-0500 Systolic blood pressure 136 mm[Hg] Renetta Barahona Other [place] [place] Other 01-27-2022 12:00-0500 Body height 165.1 cm Miguel Membreno Other [place] [place] Other 01-27-2022 12:00-0500 Body mass index (BMI) [Ratio] 33.28 kg/m2 Miguel Martinezremelissa Other [facility] Other 01-27-2022 12:00-0500 Body temperature 97.7 [degF] Miguel Martinezrer Other [facility] Other 01-27-2022 12:00-0500 Body weight 90.72 kg Miguel Buehrer Other [facility] Other 01-27-2022 12:00-0500 Diastolic blood pressure 70 mm[Hg] Miguel Maierehrer Other [facility] Other 01-27-2022 12:00-0500 SaO2% (BldA) [Mass fraction] 98 % Miguel Martinezrer Other [facility] Other 01-27-2022 12:00-0500 Systolic blood pressure 142 mm[Hg] Miguel Membreno Other [facility] Other 01-15-2022 10:29-0400 Body height 165.1 cm Christopher Wells Work Phone: [facility] [place] [facility] DO Work Phone: 01-15-2022 10:29-0400 Body mass index (BMI) [Ratio] 34.95 kg/m2 Christopher Wells Work Phone: [facility] [place] [address] DO Work Phone: 01-15-2022 10:29-0400 Body surface area Derived from formula 2.02 m2 Christopher Wells Work Phone: [facility] [place] [address] DO Work Phone: 01-15-2022 10:29-0400 Body weight 95.26 kg Christopher Wells Work Phone: [facility] [place] [address] DO Work Phone: 01-15-2022 10:29-0400 Diastolic blood pressure 60 mm[Hg] Christopher Wells Work Phone: [facility] [place] [address] DO Work Phone: 01-15-2022 10:29-0400 Heart rate 68 /min Christopher Wells Work Phone: [facility] [place] [address] DO Work Phone: 01-15-2022 10:29-0400 Systolic blood pressure 116 mm[Hg] Christopher Wells Work Phone: [facility] [place] [address] DO Work Phone: 11-28-2021 15:19-0400 Blood Pressure Location Charis Daniel [facility] 11-28-2021 15:19-0400 Diastolic blood pressure 69 mm[Hg] Charis Fredy [facility] 11-28-2021 15:19-0400 Heart rate 61 /min Charis Fredy [facility] 11-28-2021 15:19-0400 Respiratory rate 18 /min Charis Fredy [facility] 11-28-2021 15:19-0400 SaO2% (BldA) [Mass fraction] 98 % Charis Fredy [facility] 11-28-2021 15:19-0400 Systolic blood pressure 132 mm[Hg] Charis Fredy [facility] 10-28-2021 09:56-0400 Blood Pressure Location Mohlucio Fredy [facility] 10-28-2021 09:56-0400 Diastolic blood pressure 72 mm[Hg] Charis Fredy [facility] 10-28-2021 09:56-0400 Heart rate 76 /min Charis Fredy [facility] 10-28-2021 09:56-0400 SaO2% (BldA) [Mass fraction] 96 % Charis Fredy [facility] 10-28-2021 09:56-0400 Systolic blood pressure 120 mm[Hg] Charis Fredy [facility] 05-28-2021 12:25-0400 Diastolic blood pressure 64 mm[Hg] Christopher Wells Work Phone: [facility] 600 DO Work Phone: 05-28-2021 12:25-0400 Systolic blood pressure 130 mm[Hg] Christopher Wells Work Phone: [facility] 600 DO Work Phone: 05-28-2021 12:21-0400 Body height 165.1 cm Christopher Wells Work Phone: [facility] 600 DO Work Phone: 05-28-2021 12:21-0400 Body mass index (BMI) [Ratio] 33.98 kg/m2 Christopher Bale Work Phone: [facility] 600 DO Work Phone: 05-28-2021 12:21-0400 Body surface area Derived from formula 2 m2 Christopher Wells Work Phone: [facility] 600 DO Work Phone: 05-28-2021 12:21-0400 Body weight 92.63 kg Christopher Wells [facility] Work Phone: 05-28-2021 12:21-0400 Diastolic blood pressure 76 mm[Hg] Christopher Wells Work Phone: [facility] 600 DO Work Phone: 05-28-2021 12:21-0400 Heart rate 68 /min Christopher Wells Work Phone: [facility] 600 DO Work Phone: 05-28-2021 12:21-0400 Systolic blood pressure 140 mm[Hg] Christopher Wells Work Phone: [facility] 600 DO Work Phone: 05-08-2021 11:36-0500 Diastolic blood pressure 90 mm[Hg] Christopher Wells Work Phone: [facility] 250 DO Work Phone: 05-08-2021 11:36-0500 Systolic blood pressure 180 mm[Hg] Christopher Wells Work Phone: [facility] 250 DO Work Phone: 05-08-2021 11:20-0500 Body height 165.1 cm Christopher Wells Work Phone: [facility] 250 DO Work Phone: 05-08-2021 11:20-0500 Body mass index (BMI) [Ratio] 34.11 kg/m2 Christopher Bale Work Phone: [facility] 250 DO Work Phone: 05-08-2021 11:20-0500 Body surface area Derived from formula 2 m2 Christopher Wells Work Phone: [facility] 250 DO Work Phone: 05-08-2021 11:20-0500 Body weight 92.99 kg Christopher Wells Work Phone: [facility] 250 DO Work Phone: 05-08-2021 11:20-0500 Diastolic blood pressure 90 mm[Hg] Christopher Wells Work Phone: [facility] 250 DO Work Phone: 05-08-2021 11:20-0500 Heart rate 68 /min Christopher Wells Work Phone: [facility] 250 DO Work Phone: 05-08-2021 11:20-0500 Systolic blood pressure 142 mm[Hg] Christopher Wells Work Phone: [facility] 250 DO Work Phone: Encounters Encounter Date Encounter Type Care Provider Facility Start: 04-10-2023 End: 04-10-2023 Emergency department patient visit Malvin Gupta Facility:[facility] Start: 04-10-2023 End: 04-10-2023 Emergency department patient visit Malvin Gupta [facility] Start: 03-23-2023 End: 03-24-2023 ambulatory Mara Dawit Facility:[facility] Start: 03-20-2023 End: 03-21-2023 ambulatory Christopher WELLS Facility:[place] Start: 03-20-2023 End: 03-20-2023 Patient encounter procedure Christopher WELLS [facility] Start: 03-18-2023 End: 03-18-2023 ambulatory DENTON D DOLCE Not Available Start: 03-04-2023 End: 03-05-2023 ambulatory DO Nicola Tapia Facility:[facility] Start: 03-04-2023 End: 03-04-2023 Pain Management Nicola Tapia [facility] Start: 03-03-2023 End: 03-03-2023 Patient encounter procedure Denton D Angelyce [facility] Start: 03-03-2023 End: 03-04-2023 ambulatory Denton D Dolce [facility] [email or web address] Other Start: 03-03-2023 Office outpatient vi sit 25 minutes Miguel CHOI V[facility] Start: 03-02-2023 End: 03-03-2023 ambulatory Linda Solorio Facility:[facility] Start: 03-02-2023 End: 03-02-2023 Patient encounter procedure Linda Solorio [facility] Start: 02-24-2023 End: 02-25-2023 ambulatory Denton D Dolce Facility:[facility] Start: 02-20-2023 End: 02-20-2023 ambulatory DENTON D DOLCE Not Available Start: 02-19-2023 End: 04-10-2023 ambulatory Christopher WELLS Facility:[facility]:[id number] Start: 02-18-2023 End: 02-18-2023 ambulatory Miguel Membreno Facility:[facility] Start: 02-18-2023 End: 02-18-2023 Admission to same day surgery center DO Christopher Wells Work Phone: [facility] Work Phone: Start: 02-18-2023 End: 02-18-2023 ambulatory DO Christopher Wells Work Phone: [facility] Work Phone: Start: 02-16-2023 End: 02-17-2023 ambulatory MD Gary Cerda Facility:[facility] Start: 02-16-2023 End: 02-16-2023 Pain Management Gary Cerda [facility] Start: 02-16-2023 End: 02-17-2023 ambulatory Denton Mares Facility:[facility] Start: 02-16-2023 End: 02-16-2023 Patient encounter procedure Denton Mares [facility] Start: 02-12-2023 End: 02-12-2023 ambulatory [facility] Amb[facility] Start: 02-12-2023 End: 02-12-2023 Office outpatient visit 25 minutes Fariha Guidry MD Work Phone: [facility] Comment on above: Atherosclerosis of n ative coronary artery of [place] heart without angina pectoris; Status post coronary angioplasty; Essential hypertension; Hyperlipidemia, unspecified hyperlipidemia type; PVD (peripheral vascular disease) ([facility]/HCC); Stage 3 chronic kidney disease, unspecified whether stage 3a or 3b CKD (CMS/HCC); Sleep apnea, unspecified type Start: 02-10-2023 End: 02-11-2023 ambulatory Denton Mares Facility:[facility] Start: 02-10-2023 End: 02-10-2023 Patient encounter procedure Denton Mares [facility] Start: 01-27-2023 End: 01-28-2023 ambulatory Denton Mares [facility] Other Start: 01-27-2023 Telephone encounter Miguel Membreno [facility] Vascular Surgery Start: 01-27-2023 End: 01-27-2023 Patient encounter procedure Denton Mares [facility] Start: 01-26-2023 End: 01-27-2023 ambulatory Christopher WELLS Facility:[facility] Start: 01-26-2023 End: 01-26-2023 Patient encounter procedure Christopher WELLS [facility] Start: 01-26-2023 End: 01-26-2023 Well adult monitoring check done Christopher WELLS [facility] Start: 01-19-2023 End: 01-20-2023 ambulatory Denton Mares Facility:[facility] Start: 01-19-2023 End: 01-19-2023 Patient encounter procedure Denton Mares [facility] Start: 01-13-2023 End: 01-14-2023 ambulatory Denton Gomez Angelygreg Facility:[facility] Start: 01-13-2023 End: 01-13-2023 Patient encounter procedure Denton Mares [facility] Start: 01-06-2023 End: 01-07-2023 ambulatory MD Gary Cerda Facility:[facility] Start: 01-06-2023 End: 01-06-2023 Pain Management Gary Cerda [facility] Start: 01-05-2023 End: 01-05-2023 ambulatory Miguel Membreno Other [place] Other Start: 01-05-2023 Office outpatient vi sit 25 minutes Miugel Membreno [facility] Vascular Surgery Start: 12-31-2022 End: 01-01-2023 ambulatory Catrachito Wolf Facility:[facility] Start: 12-31-2022 End: 12-31-2022 Patient encounter procedure Catrachito Wolf [facility] Start: 12-22-2022 End: 12-23-2022 ambulatory Denton Jason Mares Facility:[facility] Start: 12-18-2022 End: 12-19-2022 ambulatory Christopher A RUSSELL Facility:[facility] Start: 12-08-2022 End: 12-09-2022 ambulatory Catrachito Wolf Facility:[facility] Start: 12-08-2022 End: 12-08-2022 Patient encounter procedure Catrachito Wolf [facility] Start: 11-24-2022 End: 11-25-2022 ambulatory Christopher WELLS Facility:[facility] Start: 11-24-2022 End: 11-24-2022 Patient encounter procedure Christopher A RUSSELL [facility] Start: 11-06-2022 End: 11-07-2022 ambulatory Christopher WELLS Facility:[place] Start: 11-04-2022 Office outpatient vi sit 25 minutes Miguel Membreno [facility] Vascular Surgery Start: 11-04-2022 End: 11-04-2022 ambulatory DO Christopher Wells Work Phone: [facility] [email or web address] Other Start: 11-04-2022 End: 11-04-2022 Patient encounter procedure DO Christopher Wells Work Phone: [facility] Start: 11-03-2022 Follow-up encounter Renetta Musa Vascular Surgery Start: 11-03-2022 End: 11-03-2022 ambulatory Christopher Wells [facility] [email or web address] Other Start: 11-03-2022 End: 11-03-2022 Patient encounter procedure DO Christopher Wells Work Phone: [facility] Start: 10-31-2022 End: 11-01-2022 ambulatory Klaus Akkina Facility:[facility] Start: 10-31-2022 End: 10-31-2022 Patient encounter procedure Klaus Akkina [facility] Start: 09-18-2022 Chart Update Christopher Wells Work Phone: [facility] 250 DO Work Phone: Start: 09-17-[address] Christopher Wells [facility] ity:[id number] Start: 09-10-2022 End: 09-11-2022 ambulatory Linda Solorio Facility:[facility] Start: 09-10-2022 End: 09-10-2022 Patient encounter procedure Linda Solorio [facility] Start: 08-01-2022 End: 08-02-2022 ambulatory Fariha Delucaim Facility:[facility] Start: 07-23-2022 Rx Renewal Christopher Wells Work Phone: [facility] 250 DO Work Phone: Start: 06-13-2022 Rx Renewal [facility] Work Phone: Start: 06-11-2022 End: 06-12-2022 ambulatory [facility] Start: 06-11-2022 End: 06-11-2022 Patient encounter procedure Linda Solorio [facility] Start: 05-21-2022 End: 05-22-2022 ambulatory Luis BENSON Facility:[facility] Start: 05-08-2022 End: 05-09-2022 ambulatory Linda Solorio Facility:[facility] Start: 05-08-2022 End: 05-08-2022 Lab Drop off Linda Solorio [facility] Start: 05-05-2022 End: 05-06-2022 ambulatory Linda Solorio [facility] [email or web address] Other Start: 05-05-2022 Office outpatient vi sit 25 minutes Miguel Membreno [facility] Vascular Surgery Start: 04-08-2022 End: 04-08-2022 ambulatory Renetta Barahona Other [facility] [email or web address] Other Start: 04-08-2022 Telephone encounter Renetta Musa [facility] Start: 04-07-2022 End: 04-07-2022 ambulatory Miguel Membreno Facility:[facility] Start: 04-07-2022 End: 04-07-2022 Admission to same day surgery center DO Christopher Wells Work Phone: [facility]-Interventional Radiology Work Phone: Start: 04-07-2022 End: 04-07-2022 ambulatory DO Christopher Montenegro Kapjanna Work Phone: [facility] Work Phone: Start: 03-31-2022 Follow-up encounter Renetta Musa [facility] Start: 03-31-2022 End: 03-31-2022 ambulatory Miguel Membreno Facility:[facility] Start: 03-31-2022 End: 03-31-2022 ambulatory DO Christopher A Kapjanna Work Phone: [facility] Work Phone: Start: 03-31-2022 End: 03-31-2022 Patient encounter procedure DO Christopher Kaple Work Phone: [facility]-Ultrasound [facility] Start: 03-31-2022 End: 03-31-2022 Patient encounter procedure Klaus Núñez [facility] Start: 02-12-2022 End: 02-12-2022 Patient encounter procedure Christopher WELLS [facility] Start: 01-27-2022 End: 01-27-2022 ambulatory Miguel Membreno Other [facility] [email or web address] Other Start: 01-27-2022 Office outpatient ne w 45 minutes Miguel Membreno [facility] Vascular Surgery Start: 01-15-[address] Fariha cesar [facility] Facility: Start: 01-15-2022 Office outpatient vi sit 25 minutes Christopher Wells Work Phone: [facility] 600 DO Work Phone: Start: 12-31-2021 End: 06-01-2022 Recurring Charis Daniel [facility] Start: 11-28-2021 End: 11-28-2021 Patient encounter procedure Charis Daniel [facility] Start: 11-12-2021 Rx Renewal Christopher Wells Work Phone: [facility] 250 DO Work Phone: Start: 10-28-2021 Rx Renewal Christopher [facility]: [facility] Work Phone: Start: 10-28-2021 End: 10-28-2021 Patient encounter procedure Charis Daniel [facility] Start: 10-01-2021 End: 10-01-2021 Patient encounter procedure Christopher WELLS [facility] Start: 09-24-2021 End: 09-24-2021 Patient encounter procedure Christopher WELLS [facility] Start: 08-08-2021 End: 08-08-2021 Patient encounter procedure Christopher WELLS [facility] Start: 07-30-2021 Rx Renewal Christophre Wells Work Phone: [facility] 250 DO Work Phone: Start: 06-12-2021 End: 01-13-2022 Recurring Christopher WELLS [facility] Start: 05-28-2021 Office outpatient vi sit 10 minutes Christopher Wells Work Phone: [facility] 600 DO Work Phone: Start: 05-28-2021 ambulatory Christopher Wells Facility: Start: 05-12-2021 Chart Update Christopher Wells [facility] Work Phone: Start: 05-08-2021 ambulatory [...] 05-21-2032 Screening for malignant neoplasm of colon [facility] Start: 05-09-2025 DTaP/Tdap/Td Vaccines (2 - Td or Tdap) DTaP/Tdap/Td Vaccines (2 - Td or Tdap) [facility] Start: 02-01-2024 ambulatory Ambulatory Facility:[facility] Start: 07-28-2023 ambulatory Ambulatory Facility:[facility] Start: 02-18-2023 US Lower extremity veins - bilateral [facility] Start: 02-18-2023 US scan venography of lower limbs US venous mapping [facility] Start: 02-18-2023 [facility] Start: 02-12-2023 End: 02-13-2024 Alanine aminotransferase [Enzymatic activity/volume] in Serum or Plasma by With P-5'-P Alanine Aminotransferase Lab Routine Atherosclerosis of tanana coronary artery of tanana heart without angina pectoris Hyperlipidemia, unspecified hyperlipidemia type Expected: 02/12/2023 (Approximate), Expires: 02/13/2024 [facility] Service Area Work Phone: Comment on above: Expected: 02/12/2023 (Approximate), Expi res: 02/13/2024 Start: 02-12-2023 End: 02-13-2024 Aspartate aminotransferase [Enzymatic activity/volume] in Serum or Plasma by With P-5'-P Aspartate Aminotransferase Lab Routine Atherosclerosis of tanana coronary artery of tanana heart without angina pectoris Hyperlipidemia, unspecified hyperlipidemia type Expected: 02/12/2023 (Approximate), Expires: 02/13/2024 [facility] Work Phone: Comment on above: Expected: 02/12/2023 (Approximate), Expi res: 02/13/2024 Start: 02-12-2023 End: 02-13-2024 Lipid 1996 panel - Serum or Plasma Lipid Panel Lab Routine Atherosclerosis of tanana coronary artery of tanana heart without angina pectoris Hyperlipidemia, unspecified hyperlipidemia type Expected: 02/12/2023 (Approximate), Expires: 02/13/2024 [facility] Work Phone: Comment on above: Expected: 02/12/2023 (Approximate), Expi res: 02/13/2024 Start: 02-12-2023 FUV, Provider: Fariha Guidry, Status: Pen, Time: 9:00 AM FUV, Provider: Fariha Guidry, Status: Pen, Time: 9:00 AM [facility] Work Phone: Start: 11-14-2022 Influenza vaccination Influenza Vaccine (#1) [facility] Start: 07-30-2022 FUV, Provider: Fariha Guidry, Status: Pen, Time: 8:40 AM FUV, Provider: Fariha Guidry, Status: Pen, Time: 8:40 AM [facility] Work Phone: Start: 04-07-2022 [facility] Start: 02-12-2022 COVID-19 Vaccine (4 - Booster for Luca series) COVID-19 Vaccine (4 - Booster for Luca series) [facility] Start: 01-15-2022 FUV, Provider: Fariha Guidry, Status: Pen, Time: 10:10 AM FUV, Provider: Fariha Guidry, Status: Pen, Time: 10:10 AM [facility] 250 DO Work Phone: Start: 05-28-2021 NURSEVST, Provider: CITLALLI RASHID MERCHANDISE FLOW TEAM LEADER 1,[id number], Status: Pen, Time: 11:45 AM NURSEVST, Provider: CITLALLI RASHID MERCHANDISE FLOW TEAM LEADER 1,[id number], Status: Pen, Time: 11:45 AM [facility] 250 DO Work Phone: Start: 1989 Screening for malignant neoplasm of breast Mammogram [facility] Start: 06-25-1967 Diabetes mellitus screening Diabetes Screening [facility] Start: 06-25-1967 Hepatitis C screening Hepatitis C Screening [facility] Start: 1949 Lipid panel Lipid Panel [facility] Start: 1949 Medicare Annual Wellness Visit Medicare Annual Wellness Visit (AWV) [facility] Start: 1949 Screening for malignant neoplasm of colon [facility] Start: 1949 Screening for osteoporosis Bone Density Scan [facility] Patient Education [facility] Work Phone: Patient referral [facility] Work Phone: Immunizations Immunization Date Immunization Notes Care Provider Fa cility 12-18-2021 Fluad Quadrivalent 0 .5 ML Intramuscular Prefilled Syringe Christopher Wells Work Phone: [facility] 600 DO Work Phone: 12-18-2021 influenza virus vaccine, unspecified formulation Christopher WELLS [facility] 12-18-2021 Pfizer COVID-19 Vac Bivalent 30 MCG/0.3ML Intramuscular Suspension Christopher Wells Work Phone: [facility] 600 DO Work Phone: 12-18-2021 SARS-CoV-2 (COVID-19 ) mRNA BNT-162b2 vax Christopher WELLS [facility] 03-26-2021 Fluzone High-Dose Quadrivalent 0.7 ML Intramuscular Suspension Prefilled Syringe Christopher Wells Work Phone: [facility] 250 DO Work Phone: 03-26-2021 influenza virus vaccine, unspecified formulation Christopher WELLS [facility] 03-26-2021 Pfizer-BioNTech COVID-19 Vacc 30 MCG/0.3ML Intramuscular Suspension Christopher Wells Work Phone: [facility] 250 DO Work Phone: 05-19-2020 Luca COVID-19 Vaccine 0.5 ML Intramuscular Suspension Christopher Wells Work Phone: [facility] 250 DO Work Phone: 05-18-2020 COVID-19 vaccine, vector-nr, [id number], PF, 0.5 mL; Translations: [Luca COVID-19 Vaccine] Christopher WELLS [facility] Comment on above: Reason for Medicatio n: Prophylaxis Reason for Medicatio n: Prophylaxis 02-23-2020 zoster vaccine recombinant Christopher Wells Work Phone: [facility] 250 DO Work Phone: 01-05-2020 Fluad Quadrivalent 0 .5 ML Intramuscular Prefilled Syringe Christopher Wells Work Phone: [facility] 250 DO Work Phone: 01-05-2020 influenza virus vaccine, unspecified formulation Christopher WELLS [facility] 12-28-2019 influenza, high dose seasonal, preservative-free Christopher Wells Work Phone: [place] [address] DO Work Phone: 12-15-2019 influenza virus vaccine, unspecified formulation Christopher WELLS [facility] 11-15-2019 zoster vaccine recombinant Christopher Wells Work Phone: [place] [address] DO Work Phone: 11-15-2019 zoster vaccine, live Christopher MARTI [facility] 12-20-2018 influenza, high dose seasonal, preservative-free Christopher WELLS [facility] 12-14-2018 influenza virus vaccine, unspecified formulation Christopher WELLS [facility] 12-14-2018 influenza, high dose seasonal, preservative-free Christopher Wells Work Phone: [place] [address] DO Work Phone: 12-14-2018 pneumococcal polysaccharide vaccine, 23 valent Christopher Wells Work Phone: [place] [address] DO Work Phone: 02-16-2018 influenza virus vaccine, unspecified formulation Christopher WELLS [facility] 02-16-2018 Influenza, injectabl e, Madin Milly Canine Kidney, preservative free, quadrivalent Christopher Wells Work Phone: [place] [address] DO Work Phone: 02-16-2018 pneumococcal conjuga te vaccine, 13 valent Christopher Moni Russell Work Phone: [place] [address] DO Work Phone: 11-14-2017 influenza virus vaccine, unspecified formulation Christopher Montenegro Russell Work Phone: [place] [address] DO Work Phone: 11-27-2016 influenza virus vaccine, unspecified formulation Christopher RUSSELL [facility] 11-27-2016 influenza, high dose seasonal, preservative-free Christopher Bajanna Work Phone: [place] [address] DO Work Phone: 01-21-2016 influenza virus vaccine, unspecified formulation Christopher BAJANNA [facility] 01-21-2016 influenza, high dose seasonal, preservative-free Christopher Bajanna Work Phone: [place] [address] DO Work Phone: 05-09-2015 tetanus toxoid, redu louise diphtheria toxoid, and acellular pertussis vaccine, adsorbed Christopher Bajanna Work Phone: [place] [address] DO Work Phone: 02-26-2009 novel [id number], preservative-free, injectable Christopher Bajanna Work Phone: [place] [address] DO Work Phone: NEGATED: Highlighted row has not occurred!02-27-2023 influenza virus vaccine, unspecified formulation Lindajahaira MeltonOsmin [facility] NEGATED: Highlighted row has not occurred!12-18-2022 influenza virus vaccine, unspecified formulation Catrachito Weslaco [facility] Payers Date Payer Category Payer Self-pay [id number] 2022 Unknown [id number] 2018 Unknown 2018 Unknown [id number] 2014 Medicare [id number] 2014 Medicare MEDICARE MEDICAR E PART A AND B [id number] 2014-Present [address] [place] [address] [id number]. [id number] 1949 Unknown [id number] 2.16.840.1.124205.3.579.2.356 1949 Unknown [id number] 2.16.840.1.549948.3.579.2.356 1949 Unknown [id number] 2.16.840.1.964166.3.579.2.356 1949 Unknown [id number] 2.16.840.1.858897.3.579.2.1068 1949 Unknown [id number] 2.16.840.1.322316.3.579.2.1244 1949 Unknown [id number] 2.16.840.1.766917.3.579.2.1259 1949 Unknown [id number] 2.16.840.1.184885.3.579.2.1259 1949 Unknown [id number] 2.16.840.1.709860.3.579.2.727 1949 Unknown [id number] 2.16.840.1.949695.3.579.2.727 1949 Unknown [id number] 2.16.840.1.550263.3.579.2.727 1949 Unknown [id number] 2.16.840.1.378014.3.579.2 1949 Unknown [id number] 2.16.840.1.639018.3.579.2 1949 Unknown [id number] 2.16.840.1.565912.3.579.2 1949 Unknown [id number] 2.16.840.1.436271.3.579.2 1949 Unknown [id number] 2.16.840.1.454454.3.579. 1949 Unknown [id number] 2.16.840.1.747148.3.579. 1949 Unknown [id number] 2.16.840.1.209987.3.579. 1949 Unknown [id number] 2.16.840.1.764026.3.579. 1949 Unknown [id number] 2.16.840.1.284983.3.579. 1949 Unknown [id number] 2.16.840.1.288686.3.579.2 1949 Unknown [id number] 2.16.840.1.087082.3.579.2 1949 Unknown [id number] 2.16.840.1.299596.3.579.2 1949 Unknown [id number] 2.16.840.1.765996.3.579.2 1949 Unknown [id number] 2.16.840.1.126821.3.579.2 1949 Unknown [id number] 2.16.840.1.060013.3.579.2 1949 Unknown [id number] 2.16.840.1.803568.3.579.2 1949 Unknown [id number] 2.16.840.1.993826.3.579.2 1949 Unknown [id number] 2.16.840.1.100918.3.579.2 1949 Unknown [id number] 2.16.840.1.708919.3.579.2 1949 Unknown [id number] 2.16.840.1.532996.3.579.2 1949 Unknown [id number] 2.16.840.1.522288.3.579.2 1949 Unknown [id number] 2.16.840.1.440525.3.579.2 1949 Unknown [id number] 2.16.840.1.871776.3.579.2 1949 Unknown [id number] 2.16.840.1.890988.3.579.2 1949 Unknown [id number] 2.16.840.1.105353.3.579.2 1949 Unknown [id number] 2.16.840.1.832083.3.579.2 1949 Unknown [id number] 2.16.840.1.444068.3.579.2 1949 Unknown [id number] 2.16.840.1.852776.3.579.2.72 Unknown [id number] 2.16.840.1.385629.3.579.2.531 Unknown [id number] 2.16.840.1.793477.3.579.2.531 Unknown [id number] 2.16.840.1.594152.3.579.2.531 Unknown [id number] 2.16.840.1.047184.3.579.2.531 Unknown [id number] 2.16.840.1.454982.3.579.2.531 Social History Date Type Detail Facility Start: 02-12-2023 Never a smoker Never a smoker -[facility] [facility] DO Work Phone: Start: 12-10-2020 End: 03-20-2023 Tobacco smoking status Never smoked tobacco (finding) [facility] Comment on above: denies use Tobacco smoking status Never [facility] Comment on above: denies use Start: 02-12-2023 Sex Assigned At Female F [facility] Start: 1950 Sex Assigned At Female F [facility] Start: 02-12-2023 Tobacco use and exposure Smokeless tobacco non-user [facility] Work Phone: Start: 02-12-2023 Alcohol intake Current drinke r of alcohol (finding) [facility] Work Phone: Start: 02-12-2023 Alcohol Comment social [facility] Work Phone: Start: 1950 Sex Assigned At Not on file U [facility] Work Phone: Start: 02-02-2023 End: 02-12-2023 Exposure to SARS-CoV-2 (event) Not sure [facility] Medical Equipment Procedure Code Equipment Code Equipment [...] 11, Dx: E11.9 Directions: BID, [id number], Supply, 165, cm, 06/11/22 9:10:00 EDT, Height/Length Dosing, 97.6, kg, 06/11/22 9:10:00 EDT, Weight Dosing Start: 06-13-2022 Lancets, See Instructions, 100 EA, 11, Dx: E11.9 Directions: BID, [facility], Supply, 166, cm, 05/10/21 8:27:00 EST, Height/Length Dosing, 92.8, kg, 05/10/21 8:27:00 EST, Weight Dosing Start: 05-10-2021 Test strips, See Instructions, 100 EA, 11, Dx: E11.9 Directions: BID, [facility] #[id number], Supply, 165, cm, 06/11/22 9:10:00 EDT, Height/Length Dosing, 97.6, kg, 06/11/22 9:10:00 EDT, Weight Dosing Start: 06-13-2022 CL CLOSURE DEVIC E EXOSEAL 6F FDA Start: 08-11-2018 CL STENT JIE 2.5 X 08 FDA Start: 08-11-2018 Multiple periphe ral artery stent, bare-metal [id number] FDA Start: 04-07-2022 Lancets, See Instructions, 100 EA, 11, Dx: E11.9 Directions: BID, [facility], Supply, 166, cm, 05/10/21 8:27:00 EST, Height/Length Dosing, 92.8, kg, 05/10/21 8:27:00 EST, Weight Dosing Start: 05-10-2021 Test strips, See Instructions, 100 EA, 11, Dx: E11.9 Directions: BID, [facility] #[id number], Supply, 165, cm, 06/11/22 9:10:00 EDT, Height/Length Dosing, 97.6, kg, 06/11/22 9:10:00 EDT, Weight Dosing Start: 06-13-2022 Lancets, See Instructions, 100 EA, 11, Dx: E11.9 Directions: BID, [facility], Supply, 166, cm, 05/10/21 8:27:00 EST, Height/Length Dosing, 92.8, kg, 05/10/21 8:27:00 EST, Weight Dosing Start: 05-10-2021 Test strips, See Instructions, 100 EA, 11, Dx: E11.9 Directions: BID, [facility] #[id number], Supply, 165, cm, 06/11/22 9:10:00 EDT, Height/Length Dosing, 97.6, kg, 06/11/22 9:10:00 EDT, Weight Dosing Start: 06-13-2022 Lancets, See Instructions, 100 EA, 11, Dx: E11.9 Directions: BID, [facility], Supply, 166, cm, 05/10/21 8:27:00 EST, Height/Length Dosing, 92.8, kg, 05/10/21 8:27:00 EST, Weight Dosing Start: 05-10-2021 Test strips, See Instructions, 100 EA, 11, Dx: E11.9 Directions: BID, [facility] #[id number], Supply, 165, cm, 06/11/22 9:10:00 EDT, Height/Length Dosing, 97.6, kg, 06/11/22 9:10:00 EDT, Weight Dosing Start: 06-13-2022 Lancets, See Instructions, 100 EA, 11, Dx: E11.9 Directions: BID, [facility], Supply, 166, cm, 05/10/21 8:27:00 EST, Height/Length Dosing, 92.8, kg, 05/10/21 8:27:00 EST, Weight Dosing Start: 05-10-2021 Test strips, See Instructions, 100 EA, 11, Dx: E11.9 Directions: BID, [facility] #[id number], Supply, 165, cm, 06/11/22 9:10:00 EDT, Height/Length Dosing, 97.6, kg, 06/11/22 9:10:00 EDT, Weight Dosing Start: 06-13-2022 Lancets, See Instructions, 100 EA, 11, Dx: E11.9 Directions: BID, [facility], Supply, 166, cm, 05/10/21 8:27:00 EST, Height/Length Dosing, 92.8, kg, 05/10/21 8:27:00 EST, Weight Dosing Start: 05-10-2021 Test strips, See Instructions, 100 EA, 11, Dx: E11.9 Directions: BID, [facility] #[id number], Supply, 165, cm, 06/11/22 9:10:00 EDT, Height/Length Dosing, 97.6, kg, 06/11/22 9:10:00 EDT, Weight Dosing Start: 06-13-2022 Lancets, See Instructions, 100 EA, 11, Dx: E11.9 Directions: BID, [facility], Supply, 166, cm, 05/10/21 8:27:00 EST, Height/Length Dosing, 92.8, kg, 05/10/21 8:27:00 EST, Weight Dosing Start: 05-10-2021 Test strips, See Instructions, 100 EA, 11, Dx: E11.9 Directions: BID, [facility] #[id number], Supply, 165, cm, 06/11/22 9:10:00 EDT, Height/Length Dosing, 97.6, kg, 06/11/22 9:10:00 EDT, Weight Dosing Start: 06-13-2022 Lancets, See Instructions, 100 EA, 11, Dx: E11.9 Directions: BID, [facility], Supply, 166, cm, 05/10/21 8:27:00 EST, Height/Length Dosing, 92.8, kg, 05/10/21 8:27:00 EST, Weight Dosing Start: 05-10-2021 Test strips, See Instructions, 100 EA, 11, Dx: E11.9 Directions: BID, [facility] #[id number], Supply, 165, cm, 06/11/22 9:10:00 EDT, Height/Length Dosing, 97.6, kg, 06/11/22 9:10:00 EDT, Weight Dosing Start: 06-13-2022 Lancets, See Instructions, 100 EA, 11, Dx: E11.9 Directions: BID, [facility], Supply, 166, cm, 05/10/21 8:27:00 EST, Height/Length Dosing, 92.8, kg, 05/10/21 8:27:00 EST, Weight Dosing Start: 05-10-2021 Test strips, See Instructions, 100 EA, 11, Dx: E11.9 Directions: BID, [facility] #[id number], Supply, 165, cm, 06/11/22 9:10:00 EDT, Height/Length Dosing, 97.6, kg, 06/11/22 9:10:00 EDT, Weight Dosing Start: 06-13-2022 Lancets, See Instructions, 100 EA, 11, Dx: E11.9 Directions: BID, [facility], Supply, 166, cm, 05/10/21 8:27:00 EST, Height/Length Dosing, 92.8, kg, 05/10/21 8:27:00 EST, Weight Dosing Start: 05-10-2021 Test strips, See Instructions, 100 EA, 11, Dx: E11.9 Directions: BID, [facility] #[id number], Supply, 165, cm, 06/11/22 9:10:00 EDT, Height/Length Dosing, 97.6, kg, 06/11/22 9:10:00 EDT, Weight Dosing Start: 06-13-2022 Lancets, See Instructions, 100 EA, 11, Dx: E11.9 Directions: BID, [facility], Supply, 166, cm, 05/10/21 8:27:00 EST, Height/Length Dosing, 92.8, kg, 05/10/21 8:27:00 EST, Weight Dosing Start: 05-10-2021 Test strips, See Instructions, 100 EA, 11, Dx: E11.9 Directions: BID, [facility] #[id number], Supply, 165, cm, 06/11/22 9:10:00 EDT, Height/Length Dosing, 97.6, kg, 06/11/22 9:10:00 EDT, Weight Dosing Start: 06-13-2022 Lancets, See Instructions, 100 EA, 11, Dx: E11.9 Directions: BID, [facility], Supply, 166, cm, 05/10/21 8:27:00 EST, Height/Length Dosing, 92.8, kg, 05/10/21 8:27:00 EST, Weight Dosing Start: 05-10-2021 Test strips, See Instructions, 100 EA, 11, Dx: E11.9 Directions: BID, [facility] #[id number], Supply, 165, cm, 06/11/22 9:10:00 EDT, Height/Length [...] 11, Dx: E11.9 Directions: BID, [facility] #[id number], Supply, 165, cm, 06/11/22 9:10:00 EDT, Height/Length Dosing, 97.6, kg, 06/11/22 9:10:00 EDT, Weight Dosing Start: 06-13-2022 Lancets, See Instructions, 100 EA, 11, Dx: E11.9 Directions: BID, [facility], Supply, 166, cm, 05/10/21 8:27:00 EST, Height/Length Dosing, 92.8, kg, 05/10/21 8:27:00 EST, Weight Dosing Start: 05-10-2021 Test strips, See Instructions, 100 EA, 11, Dx: E11.9 Directions: BID, [facility] #[id number], Supply, 165, cm, 06/11/22 9:10:00 EDT, Height/Length Dosing, 97.6, kg, 06/11/22 9:10:00 EDT, Weight Dosing Start: 06-13-2022 Lancets, See Instructions, 100 EA, 11, Dx: E11.9 Directions: BID, [facility], Supply, 166, cm, 05/10/21 8:27:00 EST, Height/Length Dosing, 92.8, kg, 05/10/21 8:27:00 EST, Weight Dosing Start: 05-10-2021 Test strips, See Instructions, 100 EA, 11, Dx: E11.9 Directions: BID, [facility] #[id number], Supply, 165, cm, 06/11/22 9:10:00 EDT, Height/Length Dosing, 97.6, kg, 06/11/22 9:10:00 EDT, Weight Dosing Start: 06-13-2022 Lancets, See Instructions, 100 EA, 11, Dx: E11.9 Directions: BID, [facility], Supply, 166, cm, 05/10/21 8:27:00 EST, Height/Length Dosing, 92.8, kg, 05/10/21 8:27:00 EST, Weight Dosing Start: 05-10-2021 Test strips, See Instructions, 100 EA, 11, Dx: E11.9 Directions: BID, [facility] #[id number], Supply, 165, cm, 06/11/22 9:10:00 EDT, Height/Length Dosing, 97.6, kg, 06/11/22 9:10:00 EDT, Weight Dosing Start: 06-13-2022 Lancets, See Instructions, 100 EA, 11, Dx: E11.9 Directions: BID, [facility], Supply, 166, cm, 05/10/21 8:27:00 EST, Height/Length Dosing, 92.8, kg, 05/10/21 8:27:00 EST, Weight Dosing Start: 05-10-2021 Test strips, See Instructions, 100 EA, 11, Dx: E11.9 Directions: BID, [facility][id number], Supply, 165, cm, 06/11/22 9:10:00 EDT, Height/Length Dosing, 97.6, kg, 06/11/22 9:10:00 EDT, Weight Dosing Start: 06-13-2022 Functional Status Date Assessment Result Facility 04-10-2023 Functional Status N/A [facility] 03-20-2023 Functional Status N/A [facility] 03-04-2023 Functional Status N/A [facility] 02-16-2023 Functional Status N/A [facility] 01-26-2023 Functional Status N/A [facility] 01-06-2023 Functional Status N/A [facility] 09-10-2022 Functional Status N/A [facility] 06-11-2022 Functional Status N/A [facility] 04-07-2022 Functional status Patient at Baseline [facility] Work Phone: 11-28-2021 N/A [facility] 10-28-2021 No [facility] Mental Status Date Assessment Result Facility 04-07-2022 Cognitive function Cognitive Sta tus Patient at Baseline [facility] Work Phone: Clinical Notes 01-27-2022 to 04-10-2023 Note Date & Type Note Facility 04-10-2023 Evaluation + Plan note Extrac beatriz from: Title:ED Note Author:Erick BARTH, Radhames Crystal te:04/10/23 Bronchitis (J40: Bronchitis, not specified as acute or chronic) Orders: albuterol, 2 puff(s), Inhalation, q6hr Wheezing, 8.5 gm, Refill(s) 0, [facility][id number], 165, cm, 04/10/23 9:26:00 EST, Height/Length Dosing, 96.9, kg, 04/10/23 9:26:00 EST, Weight Dosing azithromycin, = 1 packet(s), Oral, As Directed, as directed on package labeling, X 5 day(s), # 6 tab(s), Refills(s) 0, Pharmacy: [facility] #[id number], 165, cm, 04/10/23 9:26:00 EST, Height/Length Dosing, 96.9, kg, 04/10/23 9:26:00 EST, Weight Dosing predniSONE, 60 mg = 3 tab(s), Oral, Daily, X 7 day(s), # 21 tab(s), Refills(s) 0, Pharmacy: [facility] #[id number], 165, cm, 04/10/23 9:26:00 EST, Height/Length Dosing, 96.9, kg, 04/10/23 9:26:00 EST, Weight Dosing XR Chest 2 Views Future Appointments Appointment Date:07/28/2023 08:00:00 AM Scheduled Provider:Christopher WELLS DO, FAAFP Location:[facility] [employer] Appointment Type: Open Appointment Date:02/01/2024 08:00:00 AM Scheduled Provider: Location:[facility] Appointment Type: Medicare Wellness Subsequent Future Scheduled Tests Laboratory* HgbA1c 03/27/22 * HgbA1c 06/25/22 * HCV Antibody RFX to Quant PCR 01/26/23 [facility]01-26-2024 Hospital Discharge instructions Patient Education 04/10/2023 [...] condition. Follow these instructions at home: Take grtb-yfu-qslvkjb and prescription medicines only as told by [...] and water are not available, use hand validation architect. Avoid contact with people who have cold [...] it is easier to cough up. Take teek-grb-yzjvcsi and prescription medicines only as told by [...] provider. Document Revised: 06/12/2022 Document Reviewed: 07/03/2021 [email or web address] Patient Education 2022 Pressi. Follow Up Care 04/10/2023 09:14:32 With:Christopher WELLS Address: [address], [place] [address]- [facility] (1) When:04/13/2023 11:17:35 [facility]01-05-2024 Hospital Discharge instructions Patient Education 03/20/2023 [...] plan? Your health care provider or certified drug counselor can help you make a plan for [...] (heat stroke). Where to find more information [place] Diabetes Association: www.diabetes.org Summary Exercising regularly is important for overall health, especially for people who have diabetes mellitus. Exercising has many health benefits. It increases muscle strength and bone density and reduces bodyfat and stress. It also lowers and controls blood glucose. Your health care provider or certified drug counselor can help you make an activity plan [...] provider. Document Revised: 11/28/2019 Document Reviewed: 11/28/2019 [email or web address] Patient Education 2022 Pressi. Follow Up Care 12/18/2022 08:59:12 With:Christopher WELLS DO, FAAFP, FAM, PED Address: [place] [address]- When:Within 4 Month(s) [facility] 12-20-2023 Evaluation + [...] 09:00:00 AM Scheduled Provider:Christopher WELLS DO, FAAFP Location:[facility] Appointment Type:FM Open Appointment Date:03/23/2023 08:30:00 AM Scheduled Provider:Mara Pastor PA-C Location:[facility] Appointment Type:Pain Management - Follow Up (FT) Appointment Date:02/01/2024 08:00:00 AM Scheduled Provider: Location:[facility] Appointment Type: Medicare Wellness Subsequent Future Scheduled Tests Laboratory* HgbA1c 03/27/22 * HgbA1c 06/25/22 * HCV Antibody RFX to Quant PCR 01/26/23 [facility]12-20-2023 Note [id number] NoteDiagnosis: M16.12, left hip pain/osteoarthritis [...] procedure, and agrees to continue currently prescribed/recommended therapies.[facility] Comment on above:Result Comment: Electronically Signed By: Nicola Tapia DO.maria teresa\Date and Time Signed: 03/04/23 09:06 [id number] Evaluation note* Encounter Date Diagnosis Assessment Notes [...] sooner should she deteriorate in any way [place] Other [phone] History of Present illness Narrative* Fariha Guidry [...] I suggested that she discuss with her rubber goods inspector the addition of FMXI6hsuiwijri or GLP agonists. Reviewed with the patient [...] complications. 5. Diabetes, managed by endocrinology in [place]. A1c remains above target, advised patient to discuss with the rubber goods inspector more aggressive therapy. 6. Hypertension completely under control. 7. High-risk medication with Xarelto, so far well-tolerated. Takes baby aspirin twice weekly 8. Stage III chronic kidney disease to be monitored closely, she follow with nephrology 9. intermittent claudications and PAD followed by vascular surgery in [place]. Patient is scheduled next week to have revascularization for intermittent claudication 10. Sleep apnea not consistently using CPAP machine. Encouraged the patient to utilize it daily. Fariha Guidry MD, [facility] Review of Systems All other [...] tablet, Rfl: 3 Assessment/Plan 1. Atherosclerosis of tanana coronary artery of tanana heart without angina pectoris Follow Up In Cardiology atorvastatin (Lipitor) 40 mg tablet Alanine Aminotransferase Aspartate Aminotransferase Lipid Panel 2. Status post coronary angioplasty Follow Up In Cardiology 3. Essential hypertension Follow Up In Cardiology 4. Hyperlipidemia, unspecified hyperlipidemia type atorvastatin (Lipitor) 40 mg tablet Alanine Aminotransferase Aspartate Aminotransferase Lipid Panel 5. PVD (peripheral vascular disease) ([facility]) 6. Stage 3 chronic kidney disease, unspecified whether stage 3a or 3b CKD ([facility]) 7. Sleep apnea, unspecified [facility] Phone: 1(450) 718-128411-30-2023 Instructions* Patient Instructions* Saloni Benavides LPN - [...] Follow up 6 months [facility] Work Phone: [phone]) 754-798211-13-2023 Hospital Discharge instructions Patient Education 01/26/2023 09:01:27 [...] Carrots. Green beans. Tomatoes. Peppers. Onions. Cucumbers. [place] sprouts. Grains Whole grains, such as whole-wheat [...] meet with a certified diabetes care and health education director? Do I need to meet with a dietitian? What number can I call if I have questions? When are the best times to check my blood glucose? Where to find more information: [place] Diabetes Association: diabetes.org Academy of Nutrition and Dietetics: eatright.org National [place] of Diabetes and Digestive and Kidney Diseases: [...] provider. Document Revised: 10/03/2020 Document Reviewed: 10/03/2020 [email or web address] Patient Education 2022 Pressi. 01/26/2023 09:01:11 Fall Prevention in the Home, Adult, Nyhd-hh-Snck Fall Prevention in the Home, Adult Falls [...] Keep items that you use often in xkon-px-aiqau places. Lower the shelves around your home [...] of the way. Do not use floor guatemalan or wax that makes floors slippery. What [...] for Disease Control and PreventionKELLEY: www.cdc.gov National [place] on Aging: www.sav[place].nih.gov Contact a doctor if: [...] provider. Document Revised: 12/02/2021 Document Reviewed: 10/03/2020 [email or web address] Patient Education 2022 Pressi. 01/26/2023 09:01:04 Hepatitis C, Pglh-jo-Iofe Hepatitis C Hepatitis C is a liver [...] organ donations that were done in the [facility] before 1991. What increases the risk? Having [...] Follow these instructions at home: Medicines Take arvt-ach-aueofqu and prescription medicines only as told by your doctor. If you were given an antiviral medicine, take it as told by your doctor. Do not stop using the antiviral even if you start to feel better. Do not take any new medicines unless your doctor says that this is okay. This includes cpjn-idl-xnwrwoh medicines and supplements. Activity Rest as needed. [...] not have soap and water, use hand validation architect. Cover any cuts or open sores on [...] provider. Document Revised: 01/17/2021 Document Reviewed: 01/17/2021 [email or web address] Patient Education 2022 Pressi. 01/26/2023 09:00:41 Exercising to Lose Weight Exercising [...] your health care provider or diet and psychiatric specialist (dietitian). This may include: ?Eating fewer [...] provider. Document Revised: 04/28/2021 Document Reviewed: 04/28/2021 [email or web address] Patient Education 2022 Pressi. 01/26/2023 09:00:38 Cooking With Less Salt Cooking [...] salt. Use sodium-free baking soda when baking. [place], braise, or roast foods to add flavor with less salt. Avoid adding salt to pasta, rice, or hot cereals. Drain and rinse canned vegetables, beans, and meat before use. Avoid adding salt when cooking sweets and desserts. Cook with low-sodium ingredients. What foods are high in sodium? Vegetables Regular canned vegetables (not low-sodium or reduced-sodium). Sauerkraut, pickled vegetables, and relishes. Olives. Namibian fries. Onion rings. Regular canned tomato sauce [...] Soy milk. Yogurt. Low-sodium cheeses, such as Colombian, [place] Teodoro, mozzarella, and ricotta. Sherbet or ice [...] foods you can pair it with. Herbs Gratiot leaves Soups, meat and vegetable dishes, and spaghetti sauce. Basil North Korean dishes, soups, pasta, and fish dishes. Cilantro Meat, poultry, and vegetable dishes. Avoca powder Marinades and Nigerien dishes. Chives Salad dressings and potato dishes. Cumin Nigerien dishes, couscous, and meat dishes. Dill Fish dishes, sauces, and salads. Fennel Meat and vegetable dishes, breads, and cookies. Garlic (do not use garlic salt) North Korean dishes, meat dishes, salad dressings, and sauces. Marjoram Soups, potato dishes, and meat dishes. Oregano Pizza and spaghetti sauce. Parsley Salads, soups, pasta, and meat dishes. Vanita North Korean dishes, salad dressings, soups, and red meats. [...] provider. Document Revised: 02/22/2020 Document Reviewed: 02/22/2020 [email or web address] Patient Education 2022 Pressi. 01/26/2023 09:00:36 BMI for Adults BMI for [...] numbers. This can be done either in [place]olan (U.S.) or metric measurements. Note that charts and online BMI calculators are available to help you find your BMI quickly and easily without having to do these calculations yourself. To calculate your BMI in [place]olan ([place].S[place] measurements: 1.Measure your weight in pounds [...] Centers for Disease Control and Prevention: www.cdc.gov [place] Heart Association: www.heart.org National Heart, Lung, and Blood [place]: www.nhlbi.nih.gov Summary Body mass index (BMI) is a number that is calculated from a person's weight and height. BMI may help estimate how much of a person's weight is composed of fat. BMI can help identify thosewho may be at higher risk for certain medical problems. BMI can be measured using Angolan measurements or metric measurements. BMI charts are used to identify whether you are underweight, normal weight, overweight, or obese. This information is not intended to replace advice given to you by your health care provider. Make sure you discuss any questions you have with your health care provider. Document Revised: 11/23/2019 Document Reviewed: 09/30/2019 [email or web address] Patient Education 2022 Pressi. [facility] 10-24-2023 Evaluation + [...] Appointments Appointment Date:01/26/2023 08:00:00 AM Scheduled Provider: Location:[facility] Appointment Type: Medicare Wellness Subsequent Appointment Date:03/12/2023 08:00:00 AM Scheduled Provider:Linda Solorio CNP Location:[facility] Appointment Type:BADH Follow Up Appointment Date:03/20/2023 09:00:00 AM Scheduled Provider:Christopher WELLS DO, FAAFP Location:[facility] Appointment Type: [facility] Scheduled Tests Laboratory* HgbA1c 03/27/22 * HgbA1c 06/25/22 [facility]10-23-2023 Evaluation note* Encounter Date Diagnosis Assessment [...] understands and is agreement with that plan. [place] Other 10-11-2023 NoteMicrobiology PROCEDURE: Wound Culture [R1] [...] Locations R1: This test was performed at: [facility], [address] [place] [address], [address] , , [facility] CenterComment on above:Performed By: #### [id number] #### [facility] [address] [place] [address] [id number] Evaluation note* Encounter Date Diagnosis Assessment Notes [...] to see her back in 2 months. [place] Other 08-21-2023 Evaluation note* Encounter Date Diagnosis [...] call us with any issues or concerns. [place] Other 06-28-2023 Hospital Discharge instructions Patient Education [...] oral rehydration solution (ORS). This is an amtg-ayi-nrupnuh medicine that helps return your body to [...] drinks, sports drinks, and soda. Eat bland, haaa-qs-nrzufi foods in small amounts as you are able. These foods include bananas, applesauce, rice, lean meats, toast, and crackers. Avoid alcohol. Avoid spicy or fatty foods. Medicines Take vigs-igb-xwedtqs and prescription medicines only as told by your health care provider. If you were prescribed an antibiotic medicine, take it as told by your health care provider. Do notstop using the antibiotic even if you start to feel better. General instructions Wash your hands often using soap and water. If soap and water are not available, use a hand validation architect. Others in the household should wash their [...] soap and water are not available, usehand validation architect. Contact a health care provider if your diarrhea gets worse or you have new symptoms. Get help right away if you have signs of dehydration. This information is not intended to replace advice given to you by your health care provider. Make sure you discuss any questions you have with your health care provider. Document Revised: 09/11/2021 Document Reviewed: 09/11/2021 [email or web address] Patient Education 2022 Pressi. 09/10/2022 07:52:51 High-Fiber Eating Plan High-Fiber Eating [...] Bulgur wheat. Millet. Quinoa. Bran muffins. Popcorn. Dodson wafer crackers. Meats and other proteins [place]apahaw beans, kidney beans, and chase beans. Soybeans. [...] Cream cheese. Sour cream. Fats and oils Wiseman. Beverages Soft drinks. Other foods Cakes and [...] provider. Document Revised: 07/05/2020 Document Reviewed: 07/05/2020 [email or web address] Patient Education 2022 Pressi. Follow Up Care 06/11/2022 09:32:08 With:Linda Solorio CNP Address: When:6 months [facility] 03-29-2023 Hospital Discharge [...] per serving. Talk with a diet and psychiatric specialist (dietitian) if you have questions about [...] Bulgur wheat. Millet. Quinoa. Bran muffins. Popcorn. Dodson wafer crackers. Meats and other proteins [place]aw, kidney, and chase beans. Soybeans. Split peas. [...] Cream cheese. Sour cream. Fats and oils Wiseman. Beverages Soft drinks. Other foods Cakes and [...] 03/02/2006 Document Revised: 01/04/2018 Document Reviewed: 01/04/2018 [email or web address] Patient Education 2020 Pressi. 06/11/2022 09:15:20 Hemorrhoids Hemorrhoids Hemorrhoids are swollen [...] 3 times a day. General instructions Take vraq-efl-uxtpahx and prescription medicines only as told by [...] 02/27/2001 Document Revised: 07/29/2019 Document Reviewed: 07/22/2018 [email or web address] Patient Education 2020 [email or web address] 06/11/2022 09:15:19 Colon Polyps Colon Polyps [...] 11/26/2004 Document Revised: 06/17/2018 Document Reviewed: 06/17/2018 [email or web address] Patient Education Lift. Follow Up Care 06/09/2022 16:22:13 With:Linda Solorio CNP Address: When:3 months [facility] [id number] Note [id number]:127[facility] 05-05-2022 Evaluation note* Encounter Date Diagnosis Assessment Notes Treatment Notes Treatment Clinical Notes Apr, Peripheral vascular disease, unspecified (ICD-10 - I73.9) Apr, Other specified postprocedural states (ICD-10 - Z98.890) Apr, Other Peripheral arterial occlusive disease She has a good clinical outcome. I will see her back in 6 months with ABIs on that day. She will continue her current medical regimen. [place] Other 01-24-2023 Evaluation note* Encounter Date Diagnosis Assessment Notes Treatment Notes Treatment Clinical Notes Mar, Post-op pain (ICD-10 - G89.18) [place] Other 01-16-2023 Evaluation + Plan note Diagnostic Tests Pending * PTH Intact 03/31/22 * Immunofixation Serum 03/31/22 * Immunofixation, Urine 03/31/22 * C3 Complement 03/31/22 * C4 Complement 03/31/22 * Free K+L Lt Chains,Qn,S 03/31/22 Future Scheduled Tests Laboratory* HgbA1c 03/27/22 * HgbA1c 06/25/22 [facility]01-16-2023 Evaluation note* Encounter Date Diagnosis Assessment [...] of both lower extremities (ICD-10 - I73.9) [place] Other 01-12-2023 Evaluation + Plan note Future Scheduled Tests Laboratory* HgbA1c 03/27/22 * HgbA1c 06/25/22 [facility]11-14-2022 Evaluation note* Encounter Date Diagnosis Assessment [...] in 2 months time with the ABIs. [place] Other Evaluation + Plan note Future Appointments Appointment Date:08/27/2021 09:30:00 AM Scheduled Provider: Location:.[facility]ARY Appointment Type:DM Diabetes Initial master welder 59 (F Appointment Date:10/16/2021 01:00:00 PM Scheduled Provider: [facility]DM Diabetes Group () [facility] Evaluation + Plan note Future Appointments Appointment Date:10/15/2021 09:00:00 AM Scheduled Provider: Location:.[facility] Appointment Type:DM Diabetes Group () Appointment Date:10/28/2021 09:45:00 AM Scheduled Provider:Charis Daniel MD Location[facility] Appointment Type:Vascular New Patient () Appointment Date:12/16/2021 09:40:00 AM Scheduled Provider:Christopher WELLS DO, FAAFP Location:[facility] Appointment Type: Open Future Scheduled Tests Laboratory* HgbA1c 12/25/21 * HgbA1c 03/27/22 * HgbA1c 06/25/22 Radiology* US PVR Lower EXT Complete Bilat [facility]24/21 [facility] Future Appointments Appointment Date:10/15/2021 09:00:00 AM Scheduled Provider: [facility] Type:DM Diabetes Group (FT) Appointment Date:10/28/2021 09:45:00 AM Scheduled Provider:Charis Daniel MD Location[facility] Appointment Type:Vascular New Patient (FT) Appointment Date:12/16/2021 09:40:00 AM Scheduled Provider:Christopher WELLS DO, FAAFP Location:[facility] Appointment Type:FM Open Future Scheduled Tests Laboratory* HgbA1c 12/25/21 * HgbA1c 03/27/22 * HgbA1c 06/25/22 [facility] Future Appointments Appointment Date:12/16/2021 09:40:00 AM Scheduled Provider:Christopher WELLS DO, FAAFP Location:[facility] Appointment Type:FM Open Appointment Date:01/02/2022 01:00:00 PM Scheduled Provider: [facility] Type:DM Diabetes Group (FT) Future Scheduled Tests Laboratory* HgbA1c 12/25/21 * HgbA1c 03/27/22 * HgbA1c 06/25/22 Radiology* US LE Venous Duplex Insufficiency Bilat 10/28/21 * CTA Abd Aorto-bilat/ iliofemoral runoff 10/28/21 [facility] Future Appointments Appointment Date:12/16/2021 09:40:00 AM Scheduled Provider:Christopher WELLS DO, FAAFP Location:[facility] Appointment Type:FM Open Appointment Date:01/02/2022 01:00:00 PM Scheduled Provider: [facility] Type:DM Diabetes Group (FT) Appointment Date:02/24/2022 09:00:00 AM Scheduled Provider:Charis Daniel MD Location[facility] Appointment Type:Vascular Follow Up (FT) Future Scheduled Tests Laboratory* HgbA1c 12/25/21 * HgbA1c 03/27/22 * HgbA1c 06/25/22 [facility] Future Appointments Appointment Date:02/24/2022 09:00:00 AM Scheduled Provider:Charis Daniel MD Location[facility] Appointment Type:Vascular Follow Up (FT) Future Scheduled Tests Laboratory* HgbA1c 12/25/21 * HgbA1c 03/27/22 * HgbA1c 06/25/22 [facility] Future Appointments Appointment Date:02/24/2022 09:00:00 AM Scheduled Provider:Charis Daniel MD [facility] Type:Vascular Follow Up (FT) Future Scheduled Tests Laboratory* HgbA1c 03/27/22 * HgbA1c 06/25/22 [facility] Future Appointments Appointment Date:05/21/2022 01:05:00 PM Scheduled Provider: Location:[facility] Appointment Type:Surgery FT Diagnostic Tests Pending * O & P Exam, Routine 05/08/22 * Giardia lamblia, Direct Detection EIA 05/08/22 Future Scheduled Tests Laboratory* HgbA1c 03/27/22 * HgbA1c 06/25/22 [facility] Future Appointments Appointment Date:09/10/2022 08:00:00 AM Scheduled Provider:Linda Solorio CNP Location:[facility] Appointment Type:BAD Follow Up Future Scheduled Tests Laboratory* HgbA1c 03/27/22 * HgbA1c 06/25/22 [facility] Evaluation + Plan note Future Appointments Appointment Date:03/12/2023 08:00:00 AM Scheduled Provider:Linda Solorio CNP Location:[facility] Appointment Type:BAD Follow Up Future Scheduled Tests Laboratory* HgbA1c 03/27/22 * HgbA1c 06/25/22 [facility] Evaluation + Plan note Future Appointments Appointment Date:12/18/2022 08:20:00 AM Scheduled Provider:Christopher WELLS DO, FAAFP Location:[facility] [employer] Appointment Type: Open Appointment Date:01/26/2023 08:00:00 AM Scheduled Provider: Location:[facility] Appointment Type: Medicare Wellness Subsequent Appointment Date:03/12/2023 08:00:00 AM Scheduled Provider:Linda Solorio CNP Location:[facility] Appointment Type:BAD Follow Up Future Scheduled Tests Laboratory* HgbA1c 03/27/22 * HgbA1c 06/25/22 [facility] Future Appointments Appointment Date:01/06/2023 08:30:00 AM Scheduled Provider:[facility] Type:Pain Management - New (FT) Appointment Date:01/26/2023 08:00:00 AM Scheduled Provider: Location:[facility] Appointment Type: Medicare Wellness Subsequent Appointment Date:03/12/2023 08:00:00 AM Scheduled Provider:Linda Solorio CNP Location:[facility] Appointment Type:BAD Follow Up Appointment Date:03/20/2023 09:00:00 AM Scheduled Provider:Christopher WELLS DO, FAAFP Location:[facility] Appointment Type: Open Future Scheduled Tests Laboratory* HgbA1c 03/27/22 * HgbA1c 06/25/22 [facility] Future Appointments Appointment Date:01/19/2023 09:30:00 AM Scheduled Provider: [facility] Appointment Type:WC Assessment (FT) Appointment Date:01/26/2023 08:00:00 AM Scheduled Provider: Location:[facility] Appointment Type: Medicare Wellness Subsequent Appointment Date:01/27/2023 02:00:00 PM Scheduled Provider:Denton Mares DPM [facility] Appointment Type:WC Follow Up Visit (FT) Appointment Date:02/02/2023 09:45:00 AM Scheduled Provider: Location:[facility] Appointment Type:Surgery FT Appointment Date:02/17/2023 08:45:00 AM Scheduled Provider:Gary Cerda MD Location:[facility] Appointment Type:Pain Management - Follow Up (FT) Appointment Date:03/12/2023 08:00:00 AM Scheduled Provider:Linda Solorio CNP Location:[facility] Appointment Type:BAD Follow Up Appointment Date:03/20/2023 09:00:00 AM Scheduled Provider:Christopher WELLS DO, FAAFP Location:[facility] Appointment Type:FM Open Future Scheduled Tests Laboratory* HgbA1c 03/27/22 * HgbA1c 06/25/22 [facility] Future App[facility]ments Appointment Date:01/26/2023 08:00:00 AM Scheduled Provider: Location:[facility] Appointment Type:FM Medicare Wellness Subsequent Appointment Date:01/27/2023 02:00:00 PM Scheduled Provider:Denton Mares DPM Location[facility] Appointment Type:WC Follow Up Visit (FT) Appointment Date:02/02/2023 09:45:00 AM Scheduled Provider: Location:[facility] Appointment Type:Surgery FT Appointment Date:02/17/2023 08:45:00 AM Scheduled Provider:Gary Cerda MD [facility] Type:[facility] - Follow Up (FT) Appointment Date:03/12/2023 08:00:00 AM Scheduled Provider:Linda Solorio CNP Location:[facility] Appointment Type:BAD Follow Up Appointment Date:03/20/2023 09:00:00 AM Scheduled Provider:Christopher WELLS DO, FAAFP Location:[facility] Appointment Type:FM Open Future Scheduled Tests Laboratory* HgbA1c 03/27/22 * HgbA1c 06/25/22 [facility] Future Appointments Appointment Date:01/27/2023 02:00:00 PM Scheduled Provider:Denton Mares DPM [facility] Appointment Type:WC Follow Up Visit (FT) Appointment Date:02/02/2023 09:45:00 AM Scheduled Provider: Location:[facility] Appointment Type:Surgery FT Appointment Date:02/17/2023 08:45:00 AM Scheduled Provider:Gary Cerda MD [facility] Appointment Type:Pain Management - Follow Up (FT) Appointment Date:03/12/2023 08:00:00 AM Scheduled Provider:Linda Solorio CNP Location:[facility] Appointment Type:BAD Follow Up Appointment Date:03/20/2023 09:00:00 AM Scheduled Provider:Christopher WELLS DO, FAAFP Location:[facility] Appointment Type:FM Open Appointment Date:02/01/2024 08:00:00 AM Scheduled Provider: Location:[facility] Appointment Type:FM Medicare Wellness Subsequent Future Scheduled Tests Laboratory* HgbA1c 03/27/22 * HgbA1c 06/25/22 * HCV Antibody RFX to Quant PCR 01/26/23 [facility] Primary Care Evaluation + Plan note Future Appointments Appointment Date:02/02/2023 09:45:00 AM Scheduled Provider: Location:[facility] Appointment Type:Surgery FT Appointment Date:02/10/2023 02:30:00 PM Scheduled Provider:Denton Mares DPM [facility] Appointment Type:WC Follow Up Visit (FT) Appointment Date:02/17/2023 08:45:00 AM Scheduled Provider:Gary Cerda MD Location:[facility] Appointment Type:Pain Management - Follow Up (FT) Appointment Date:03/12/2023 08:00:00 AM Scheduled Provider:Linda Solorio CNP Location:[facility] Appointment Type:BADH Follow Up Appointment Date:03/20/2023 09:00:00 AM Scheduled Provider:Christopher WELLS DO, FAAFP Location:[facility] Appointment Type: Open Appointment Date:02/01/2024 08:00:00 AM Scheduled Provider: Location:[facility] Appointment Type:FM Medicare Wellness Subsequent Future Scheduled Tests Laboratory* HgbA1c 03/27/22 * HgbA1c 06/25/22 * HCV Antibody RFX to Quant PCR 01/26/23 [facility] Future Appointments Appointment Date:02/16/2023 01:45:00 PM Scheduled Provider: [facility] Appointment Type:WC Assessment (FT) Appointment Date:02/16/2023 02:15:00 PM Scheduled Provider: Location:[facility] Appointment Type:Surgery FT Appointment Date:02/24/2023 02:00:00 PM Scheduled Provider:Denton Mares DPM [facility] Appointment Type:WC Follow Up Visit (FT) Appointment Date:03/02/2023 08:15:00 AM Scheduled Provider:Mara Pastor PA-C Location:[facility] Appointment Type:Pain Management - Follow Up (FT) Appointment Date:03/02/2023 09:40:00 AM Scheduled Provider:Linda Solorio CNP Location:[facility] Appointment Type:BAD Follow Up Appointment Date:03/20/2023 09:00:00 AM Scheduled Provider:Christopher WELLS DO, FAAFP Location:[facility] Appointment Type:FM Open Appointment Date:02/01/2024 08:00:00 AM Scheduled Provider: Location:[facility] Appointment Type:FM Medicare Wellness Subsequent Future Scheduled Tests Laboratory* HgbA1c 03/27/22 * HgbA1c 06/25/22 * HCV Antibody RFX to Quant PCR 01/26/23 [facility] Future Appointments Appointment Date:02/24/2023 02:00:00 PM Scheduled Provider:Denton Mares DPM [facility] Appointment Type:WC Follow Up Visit (FT) Appointment Date:03/02/2023 09:40:00 AM Scheduled Provider:Linda Solorio CNP Location:[facility] Appointment Type:[facility] Follow Up Appointment Date:03/04/2023 08:45:00 AM Scheduled Provider: Location:[facility] Appointment Type:Surgery FT Appointment Date:03/20/2023 09:00:00 AM Scheduled Provider:Christopher WELLS DO, FAAFP Location:[facility] Appointment Type:FM Open Appointment Date:03/23/2023 08:30:00 AM Scheduled Provider:Mara Pastor PA-C Location:[facility] Appointment Type:Pain Management - Follow Up (FT) Appointment Date:02/01/2024 08:00:00 AM Scheduled Provider: Location:[facility] Appointment Type:FM Medicare Wellness Subsequent Future Scheduled Tests Laboratory* HgbA1c 03/27/22 * HgbA1c 06/25/22 * HCV Antibody RFX to Quant PCR 01/26/23 [facility] Future Appointments Appointment Date:03/03/2023 02:30:00 PM Scheduled Provider:Denton Mares DPM [facility] Appointment Type:WC Follow Up Visit (FT) Appointment Date:03/04/2023 08:45:00 AM Scheduled Provider: Location:[facility] Appointment Type:Surgery FT Appointment Date:03/20/2023 09:00:00 AM Scheduled Provider:Christopher WELLS DO, FAAFP Location:[facility] Appointment Type:FM Open Appointment Date:03/23/2023 08:30:00 AM Scheduled Provider:Mara Pastor PA-C [facility] [place] Appointment Type:Pain Management - Follow Up (FT) Appointment Date:02/01/2024 08:00:00 AM Scheduled Provider: Location:[facility] Appointment Type: Medicare Wellness Subsequent Future Scheduled Tests Laboratory* HgbA1c 03/27/22 * HgbA1c 06/25/22 * HCV Antibody RFX to Quant PCR 01/26/23 [facility] Evaluation + Plan note Future Appointments Appointment Date:03/04/2023 08:45:00 AM Scheduled Provider: Location:[facility] Appointment Type:Surgery FT Appointment Date:03/20/2023 09:00:00 AM Scheduled Provider:Christopher WELLS DO, FAAFP Location:[facility] Appointment Type:FM Open Appointment Date:03/23/2023 08:30:00 AM Scheduled Provider:Mara Pastor PA-C [facility] Appointment Type:Pain Management - Follow Up (FT) Appointment Date:02/01/2024 08:00:00 AM Scheduled Provider: Location:[facility] Appointment Type: Medicare Wellness Subsequent Future Scheduled Tests Laboratory* HgbA1c 03/27/22 * HgbA1c 06/25/22 * HCV Antibody RFX to Quant PCR 01/26/23 [facility] Future Appointments Appointment Date:03/23/2023 08:30:00 AM Scheduled Provider:Mara Pastor PA-C [facility] Appointment Type:Pain Management - Follow Up (FT) Appointment Date:07/28/2023 08:00:00 AM Scheduled Provider:Christopher WELLS DO, FAAFP Location:[facility] Appointment Type:FM Open Appointment Date:02/01/2024 08:00:00 AM Scheduled Provider: Location:[facility] Appointment Type: Medicare Wellness Subsequent Future Scheduled Tests Laboratory* HgbA1c 1/12/23 * HgbA1c 06/25/22 * HCV Antibody RFX to Quant PCR 01/26/23 [facility] Primary Care Evaluation noteNo assessment information available [facility] Work Phone: Evaluation noteNo InformationNort Ordr.in Other Evaluation note* Diagnosis Atherosclerosis of tanana coronary artery of tanana heart without angina pectoris Status post coronary angioplasty Postsurgical percutaneous transluminal coronary angioplasty status Essential hypertension Unspecified essential hypertension Hyperlipidemia, unspecified hyperlipidemia type PVD (peripheral vascular disease) ([facility]) Unspecified peripheral vascular disease Stage 3 chronic kidney disease, unspecified whether stage 3a or 3b CKD ([facility]) Sleep apnea, unspecified type documented in this encounter [facility] Work Phone: History general Narrative - Reported* [...] stent 3 STENTS Hospitalization History see above [place] Other [facility] general Narrative - Reported* Type Description Date [...] LEG ANGIOPLASTY 03/2022 Hospitalization History see above [place] Other Hospital course Narrative No data available for this section [facility] Hospital Discharge instructions No data available for this section [facility] Care Progress note No data available for this section [facility] (narrative)* Consultation (Routine) - Authorized Specialty Diagnoses / Procedures Referred By Fariha t Referred To Contact Cardiology Diagnoses Atherosclerosis of tanana coronary artery of tanana heart without angina pectoris Status post coronary angioplasty Essential hypertension Procedures Follow Up In Cardiology Fariha Guidry MD [address], [place] [address] [place] [id number] Fariha Guidry MD [address] [place] [place] [address] Referral ID Status Reason Start Date Expiration Date V isits Requested Visits Authorized [id number] Authorized 02/12/2023 02/12/2024 1 1 [facility] Work Phone: Chief Complaint * EVON CORCORAN [...] * 5. Diabetes, managed by endocrinology in [place]. A1c remains above target * 6. Hypertension completely under control. * 7. High-risk medication with Xarelto, so far well-tolerated. Takes baby aspirin twice weekly * 8. Stage III chronic kidney disease to be monitored closely * 9. Recent diagnosis of intermittent claudications and PAD followed by vascular surgery Dr. 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 Specialty Start Date End Date Christopher Wells DO [address] [place] [facility]- [address] [place] [address] PCP - General 08/02/18 INFORMATION SOURCE (unrecogn ized section and content) DATE CREATED AUTHOR 01/16/2022 [facility] DATE CREATED AUTHOR AUTHOR'S ORGANIZ ATION 01/16/2022 [employer] DATE CREATED AUTHOR AUTHOR'S ORGANIZ ATION 09/19/2022 [facility] DATE CREATED AUTHOR AUTHOR'S ORGANIZ ATION 02/14/2023 [facility] DATE CREATED AUTHOR AUTHOR'S ORGANIZ ATION 02/28/2023 [facility] DATE CREATED AUTHOR AUTHOR'S ORGANIZ ATION 03/19/2023 [facility] EPIC DATE CREATED AUTHOR AUTHOR'S ORGANIZ ATION 04/12/2023 [facility] REASON FOR VISIT (unrecogniz ed section [...] BE BASED ON THE PRIMARY CLINICAL RECORDS. [employer] [facility]. provides no warranty or guarantee of the accuracy or completeness of information in this document.
== END 2023-05-18 08:21 | disposition home or self-care (01) ==
LOC: VC 08:20
PROVIDERS: PCP Radiology Diagnostic Radiology; Visit Provider Radiology Diagnostic Radiology
DX: I80.02 Phlebitis and thrombophlebitis of superficial vessels of left lower extremity (principal)
CPT/HCPCS: 93971; G0463

== ENCOUNTER 2023-05-25 07:55 | Outpatient (OUT) | payer MEDICARE, BC, SELFPAY ==
--- NOTE | 2023-05-25 07:57 | VEIN_ITS ---
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 HISTORY: Pain due to varicose veins of bilateral legs I83.813 Pre-operative Diagnosis: CEAP class C6 venous insufficiency with pain, tenderness, edema and incompetent right saphenous and varicose vein(s), chronic venous insufficiency right leg secondary to venous incompetence Post-operative Diagnosis: CEAP class C6 venous insufficiency with pain, tenderness, edema and incompetent right saphenous and varicose vein(s), chronic venous insufficiency right leg secondary to venous incompetence Procedure Performed: 1. Ultrasound-guided microfoam chemical ablation with Varithenaregistered 2. Intraoperative ultrasound guidance Anesthesia: None Indications for Procedure: 72-year-old female who presents with a long history of lower extremity pain and swelling resulting in venous stasis ulcerations. The patient failed conservative medical therapy including medical compression stockings, exercise and analgesics. Prior procedures include endovenous laser ablation . Multiple incompetent varicosities of the right leg. Duplex scan showed reflux and enlarged diameters up to 6 mm. The patient underwent informed consent including management options where the complications of infection, bleeding, pain, and skin injury were discussed. Particular attention was spent discussing thrombus extension and deep vein thrombosis as well as the possibility of pulmonary embolus and treatment with oral or injectable blood thinners. Procedure: The patient walked to the procedure room. All applicable staff donned appropriate apparel. A procedure timeout was performed to confirm correct patient, correct extremity, correct procedure, and correct room set-up including presence of all applicable supplies, devices, and drugs. A duplex ultrasound, performed by myself confirmed the location and incompetence of branch saphenous varicosities and their course was marked on the skin together with the dilated tributaries. The extent of treatment of the vein and the associated varicosities was determined through ultrasound mapping. The skin was prepped and then punctured with a butterfly needle and advanced under ultrasound guidance. The Varithenaregistered canister was activated and the canister was primed and purged as required in the instructions for use. Varithenaregistered was drawn into a sterile syringe. The following injections were made: 6 cc injected into a patent incompetent distal right great saphenous vein measuring 6 mm at the level of the ankle 6 cc injected into a 6 mm varicose vein mid medial right lower leg 2 cc injected into a 3 mm varicose vein medial right mid thigh 1 cc injected into a 3 mm varicose vein medial right ankle Varithenaregistered was slowly administered at 0.5-1.0 cc/second with close observation by ultrasound of its course in the vessels. Total volume utilized was: 15cc. Following administration of Varithenaregistered the leg was elevated and the patient was asked to repeatedly dorsiflex the ankle to limit flow of Varithenaregistered into perforating veins. Once appropriate spasm had been confirmed in the treated veins, the vascular catheter was removed from the leg and light pressure was applied over the puncture site for hemostasis. The common femoral and deep superficial veins were then evaluated for flow and compressibility prior to dressing placement. The lower extremity was kept elevated at 45 degrees above the horizontal and cording material was applied over the saphenous segments and tributaries to allow for eccentric compression over the target vessels including the targeted saphenous vein(s). A multilayer dressing was applied consisting of foam pads, coban and thigh-high 20-30 mm Hg compression elastic support hose were placed on the patient. The leg was lowered only after compression had been applied and the patient was immediately ambulatory. The patient ambulated 10 minutes under supervision and was without apparent concerns at time of release. Post-care instructions include advising patient to keep post-treatment bandages in place and dry for 48 hours, avoid extended periods of inactivity, avoid heavy exercise for one week, wear compression stockings on the treated leg continuously for two weeks, to walk daily for 10 minutes over the next month. The patient was instructed to take an anti-inflammatory medicine as needed and to follow up for color duplex scan of the Saphenous veins, the treated branch saphenous varicosities, the adjacent deep veins, and additional treatment within 7 days. PERSONNEL: Ottoniel Mariscal RN Electronically authenticated by: AILIN JC Date: 05/25/2023 09:06
--- OUTSIDE RECORDS SUMMARY | 2023-05-25 07:59 | XMS_ITS | CCD ---
Author Name Unknown Address [address] [place] [address] Organization [facility] Care Team Providers Care Stone Belt Sander Name Role Phone Christopher Wells Unavailable Unavailable Unavailable Christophre WELLS Primary Care Physician [phone] Bertha Swanson Unavailable Unavailable Unavailable Unavailable Jairo, Dr. Fariha Norwood Attending Carolina vailable Jairo, Dr. Fariha Norwood Referring Carolina vailable Christopher Wells Primary Care Unavailable Christopher Wells Primary Care Unavailable Guidry, Dr. Fariha Norwodo Attending Carolina vailable Guidry, Dr. Fariha Norwood [...] vailable DO Christopher Wells Primary Care Provider [phone] MD Miguel Membreno Attending Provider [facility] Attending Provider Christopher Wells DO Primary Care Provider [phone] FARIHA GUIDRY Attending Unavailable CHRISTOPHER WELLS Primary [...] Attending Unavailable Dolce, Denton Jason Referring Unavailable Rowlett, Catrachito D Referring Unavailable Rowlett, Catrachito Gomez Attending Unavailable Rowlett, Catrachito D Admitting Unavailable KAPLE, Christopher A [...] Referring Unavailable MD Gary Cerda Admitting Unavailable aGry Cerda Attending Unavailable Rowlett, Catrachito D Referring Unavailable KAPLE, Christopher A Attending Unavailable KAPLE, Christopher A Admitting Unavailable KAPLE, Christopher A Referring Unavailable Rowlett, Catrachito D Referring Unavailable Rowlett, Catrachito D Attending Unavailable Rowlett, Catrachito D Admitting Unavailable Osmin, Linda A [...] Drug Allergy 023 Unknown (qualifier value), Diarrhea [facility] 250 DO Work Phone: (20 sources) hydroCHLOROthiazide; Translations: [hydroCHLOROthiazide CAPS] Drug Allergy 023 Diarrhea [facility] 250 DO Work Phone: (20 sources) hydroCHLOROthiazide / Spironolactone; Translations: [Aldactazide] Drug Allergy 023 Weal (disorder), Diarrhea [facility] 250 DO Work Phone: (20 sources) Lisinopril; Translations: [Zestril] Drug Allergy 023 Diarrhea (finding), Diarrhea [facility] 250 DO Work Phone: (20 sources) metFORMIN; Translations: [Glucophage] Drug Allergy 023 Diarrhea [facility] 250 DO Work Phone: (20 sources) valsartan; Translations: [Diovan] Drug Allergy 023 Unknown (qualifier value), Diarrhea [facility] 250 DO Work Phone: (20 sources) hydroCHLOROthiazide / Lisinopril; Translations: [hydrochlorothiazide-l isinopril] Drug Allergy Diarrhea (finding) [facility] (20 sources) Terazosin; Translations: [terazosin] Drug Allergy Unknown, Unknown Reaction [facility] (9 sources) metFORMIN Drug Allergy Unknown [employer] Other (7 sources) Doxazosin; Translations: [DOXAZOSIN] Drug Allergy Unknown Reaction [facility] (6 sources) hydroCHLOROthiazide; Translations: [HYDROCHLOROTHIAZIDE] Drug Allergy Unknown Reaction, Diarrhea [facility] (6 sources) Lisinopril; Translations: [LISINOPRIL] Drug Allergy Unknown Reaction [facility] (6 sources) metFORMIN; Translations: [METFORMIN] Drug Allergy Unknown Reaction, Diarrhea [facility] (5 sources) pioglitazone; Translations: [pioglitazone] Drug Allergy Unknown Reaction [facility] (5 sources) Spironolactone; Translations: [spironolactone] Drug Allergy Unknown Reaction, Hives [facility] (6 sources) valsartan; Translations: [VALSARTAN] Drug Allergy Unknown Reaction [facility] (1 source) SPIRONOLACTON-HYDROCHL OROTHIAZ; Translations: [SPIRONOLACTON-HYDROCH LOROTHIAZ] Propensity to adverse reactions to drug (disorder) 0[address] [place] [address] Repository (1 source) Terazosin Drug Allergy 023 [facility] Repository (1 source) Lisinopril; Translations: [Prinivil] Drug Allergy [facility] Repository Medications Current Medications Medication Drug [...] Wheezing, 8.5 gm, Refill(s) 0, [facility] #[id number], 165, cm, 04/10/23 9:26:00 EST, Height/Length Dosing, [...] 90 tab(s), Refills(s) 3, [facility]: [facility] #[id number], 166, cm, 10/28/21 9:59:00 EDT, Height/Length Dosing, [...] 6 tab(s), Refills(s) 0, [facility]: [facility] #[id number], 165, cm, 04/10/23 9:26:00 EST, Height/Length Dosing, [...] 90 tab(s), Refills(s) 1, [facility]: [facility] #[id number], 165, cm, 09/10/22 8:16:00 EDT, Height/Length Dosing, 97.4, kg, 09/10/22 8:16:00 EDT, Weight Dosing Start Date: 10/27/22 Status: Ordered cilostazol 50 mg oral tablet (10 sources) Phosphodiesterase 3 Inhibitor Start: 10-08-2021 take 1 tablet by mouth twice daily Pletal 50 mg oral tablet 50 mg = 1 tab(s), Oral, BID, # 60 tab(s), Refills(s) 5, [facility]: [facility] #[id number], 165, cm, 09/24/21 8:39:00 EDT, Height/Length Dosing, [...] 20 cap(s), Refills(s) 1, [facility]: [facility] #[id number], 165, cm, 12/18/22 8:28:00 EDT, Height/Length Dosing, [...] 5 EA, Refills(s) 11, [facility]: [facility] #[id number], 165, cm, 06/11/22 9:10:00 EDT, Height/Length Dosing, 97.6, kg, 06/11/22 9:10:00 EDT, Weight Dosing Start Date: 08/22/22 Status: Ordered Start: 08-22-2022 inject 30 [IU] by griffin bcutaneous injection twice daily Tresiba FlexTouch 100 units/mL subcutaneous solution 30 unit(s), SubCutaneous, BID, Dx E11.65, # 5 EA, Refills(s) 11, [facility]acy: [facility] #[id number], 165, cm, 06/11/22 9:10:00 EDT, Height/Length Dosing, [...] # 5 EA, Refills(s) 11, [facility], 166, cm, 05/10/21 8:27:00 [...] 0.4 MG Sublingual Active polyethylene glycol 3350 963463 mg / potassium chloride 1480 mg / sodium bicarbonate 5720 mg / sodium chloride 81454 mg powder for oral solution (1 source) Osmotic Laxative Start: 05-05-2022 NuLYTELY Sara ry oral powder for reconstitution See Instructions, 1 EA, Refill(s) 0, Prior to colonoscopy., [facility] #[id number], 165, cm, 05/05/22 13:40:00 EST, Height/Length Dosing, [...] 21 tab(s), Refills(s) 0, Pharmacy: [facility] #[id number], 165, cm, 04/10/23 9:26:00 EST, Height/Length Dosing, [...] 05, 2018 11:00pm Has been instructed by [facility] to stop 2 days before heart cath Start: 08-06-2018 take 20 mg by mouth once daily Rivaroxaban Active 20 MG PO Every evening August 06, 2018 12:00am Has been instructed by [facility] to stop 2 days before heart [...] capsule Indications: Mixed hyperlipidemia , Atherosclerosis of [place] coronary artery of [place] heart without angina pectoris TAKE 1 CAPSULE BY MOUTH TWICE A DAY 180 capsule 3 01/19/2023 Active Start: 04-07-2022 End: 02-18-2023 Coenzyme Q10 Discontinued PO Daily April 07, 2022 12:00am February 18, 2023 9:26am Start: 11-12-2021 take 1 capsule by [facility] twice daily CoQ10 100 MG [...] 90 cap(s), Refills(s) 3, [facility]: [facility] #[id number], 165, cm, 05/21/22 12:25:00 EST, Height/Length Dosing, 95.2, kg, 05/21/22 12:25:00 EST, Weight Dosing Start Date: 05/26/22 Status: Ordered Start: 04-17-2021 take 1 capsule by [facility] once daily potassium chloride 10 [...] sources) Coronary atherosclerosis; Translations: [Coronary atherosclerosis of [place] coronary artery] Onset: 09-18-19 23 09-11-2020 Chronic Coronary atherosclerosis and other heart disease (16 sources) Past history of procedure; Translations: [Percutaneous transluminal coronary angioplasty status] Onset: 01-10-2002-12-2023 Episodic Coronary atherosclerosis and other heart disease (3 sources) Coronary atherosclerosis and other heart disease; Translations: [Atherosclerosis of [place] arteries of left leg with ulceration of [...] limb due to atherosclerosis; Translations: [Atherosclerosis of [place] arteries of extremities with gangrene, left leg] [...] medications] Episodic Other aftercare (1 source) 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; Translations: [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] Onset: 09-18-19 Episodic Other aftercare (1 source) Long-term current use of drug therapy; Translations: [Other group home (current) drug therapy] Onset: 01-27-20 Episodic Other aftercare (1 source) Long-term current use of anticoagulant; Translations: [continuous churn buttermaker (current) use of anticoagulants] Onset: 01-27-20 Episodic Other aftercare (2 sources) Long-term current use of insulin; Translations: [alf (current) use of insulin] Onset: 01-27-20 Episodic [...] Consent for Treatmenton 03-17 Consent for Treatment [id number]#1.00T IFF [facility] Discharge Instructionson Discharge Instructions [id number]#1.00 TIFF [facility] ED Clinical Summaryon 2023 ED Clinical Summary (Inserted Image. Carolina ble to display) [place] [id number] ED Clinical Summary Person Information Name: EVON CORCORAN [facility] Age: 72 Years : 1950 Sex: Female Language: Egyptian PCP: Christopher WELLS DO, FAAFP Marital Status: [...] 04/10/2023 11:23:38 04/10/2023 11:23:38 04/10/2023 11:23:38 ADDRESS: [address] [place] [id number] [facility] DOC NOTES: MEDICAL INFORMATION: Prescriptions Given: New Medications [facility] #[id number], [address] [place], [place] [id number], [phone] albuterol (Albuterol (Eqv-ProAir HFA) 90 mcg/inh inhalation [...] With: Address: When: Christopher [address], [place] [address] Business (1) In 3 days 04/13/2023 DIAGNOSIS: Bronchitis [facility] ED Note-Physicianon 04-10-19 ED Note-Physician Basic [...] No known sick contacts. She is taking eslk-hmu-ovnqtxd cough and cold medications. Review of Systems [...] Wheezing, 8.5 gm, Refill(s) 0, [facility] #[id number], 165, cm, 04/10/23 9:26:00 EST, Height/Length Dosing, 96.9, kg, 04/10/23 9:26:00 EST, Weight Dosing azithromycin, = 1 packet(s), Oral, As Directed, as directed on package labeling, X 5 day(s), # 6 tab(s), Refills(s) 0, Pharmacy: [facility] #[id number], 165, cm, 04/10/23 9:26:00 EST, Height/Length Dosing, 96.9, kg, 04/10/23 9:26:00 EST, Weight Dosing predniSONE, 60 mg = 3 tab(s), Oral, Daily, X 7 day(s), # 21 tab(s), Refills(s) 0, Pharmacy: [facility] #[id number], 165, cm, 04/10/23 9:26:00 EST, Height/Length Dosing, [...] WELLS In 3 days 04/13/2023 EST [address], [facility] [place] [address]- [facility] (1) Additional Instructions: Patient Education Acute Bronchitis, Adult Attestation Patient seen and evaluated by the physician client account assistant. Attending physician was present in the emergency department and supervised care. This visit was performed by both the physician and an APC. I performed all aspects of the MDM as documented. This report was transcribed using voice recognition software. Every effort was made to ensure accuracy, however, inadvertently computerized director of compensation mistakes may be present. Appropriate healthcare PPE was used in evaluating this patient. The patient was placed in a mask. The healthcare provider was wearing mask, gloves, and utilizing proper hand hygiene. All equipment was properly cleansed. Problem List/Past Medical History Ongoing CAD in [place] artery Chronic renal impairment, stage 3a Claudication [...] nonproliferative diabetic (more content not included)... [facility] Comment on above: Result Comment: Elec [...] Follow these instructions at home: ? Take pbra-hhk-nulnxaw and prescription medicines only as told by [...] and water are not available, use hand bowl sander. ? Avoid contact with people who have [...] is easier to cough up. ? Take jvcj-stu-krmprge and prescription medici (more content not included)... [facility] ED Patient Summaryon 024 ED Patient Summary (Inserted Image. [place] ble to display) [place] [id number] Patient Discharge Instructions Person Information Name: EVON CORCORAN Age: 72 Years Arrival Date: 04/10/2023 09:13:22 Discharge Diagnosis: Bronchitis Primary Care Physician: Christopher WELLS DO, FAAFP Provider Information Primary Provider: [facility] M.D. Advanced Labeler:Radhames Suarez PA-C The exam and treatment you received in the Emergency Department were for an urgent problem and are not intended as complete care. It is important that you follow up with a doctor, nurse practitioner, or physician?s client account assistant for ongoing care. If your symptoms [...] Follow-up Instructions: With: Address: When: Christopher WELLS [address] [place] [address] A [place] [id number] [facility] () In 3 days 04/13/2023 In the event that this physician does not participate in your insurance network, please consult with your insurance company to find a nearby participating provider. Patient Education Materials: Acute Bronchitis, Adult A MESSAGE TO ALL PATIENTS REGARDING OPIOIDS PRESCRIPTION OPIOIDS: WHAT YOU NEED TO KNOW Prescription opioids can be used to help relieve gsroufxe-xg-isjzky pain and are often prescribed following a [...] struggling with addiction, tell your health career technical counselor and ask for guidance or call SAMHSA?S National Helpline at 9-105-008-HELP. v Yobany (more content not included)... [facility] XR Chest 2 Viewson 4 XR [...] KATEY Technologist: JUAN MIGUEL [facility] Consent for Treatmenton Consent for Treatment [id number]#1.00T IFF [facility] Consultation Noteon 03-23-19 24 Consultation Note [...] 11, Dx: E11.9 Directions: BID, [facility] #[id number], Supply, 165, cm, 06/11/22 9:10:00 EDT, Height/Length Dosing, 97.6, kg, 06/11/22 9:10:00 EDT, Weight Dosing Tresiba FlexTouch 100 units/mL subcutaneous solution: 50 unit(s), SubCutaneous, Daily, Dx E11.65, # 5 EA, Refills(s) 11, [facility]: [facility] #[id number], 165, cm, 06/11/22 9:10:00 EDT, Height/Length Dosing, 97.6, kg, 06/11/22 9:10:00 EDT, Weight Dosing chlorthalidone 25 mg Tab: 25 mg = 1 tab(s), Oral, Bedtime, # 90 tab(s), Refills(s) 1, [facility]: [facility] #22509, 165, cm, 09/10/22 8:16:00 EDT, Height/Length Dosing, 97.4, kg, 09/10/22 8:16:00 EDT, Weight Dosing potassium chloride 10 mEq Cap-ER: 10 mEq = 1 cap(s), Oral, Daily, # 90 cap(s), Refills(s) 3, [facility]acy: [facility] #16668, 165, cm, 05/21/22 12:25:00 EST, Height/Length Dosing, [...] Problems HTN - Hypertension / SNOMED CT 2878194010 / Confirmed Familial hypercholesteremia / SNOMED CT 7631631163 / Confirmed Non-smoker / SNOMED CT 28822588 / Confirmed CAD in [place] artery / SNOMED CT 34215538 / Confirmed History of DVT in adulthood / SNOMED CT 5129794550 / Confirmed Type 2 diabetes mellitus with hypercholesterolemia / SNOMED CT 208065030 / Confirmed linked DM with hypercholesterolemia per outpatient CDI policy. Type 2 diabetes mellitus with stage 3 chronic kidney disease / SNOMED CT 415209976 / Confirmed linked DM with CKD per outpatient CDI policy. Mild nonproliferative diabetic retinopathy of both eyes / SNOMED CT 772400081 / Confirmed noted in 08/21/2019 Diabetic Eye Exam. added per outpatient CDI policy. 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 [facility] Comment on above: Result Comment: Elec tronically Signed By: Dawit BARTH, Mara\.br\Date and Time Signed: 03/23/23 09:07 EST Legal Correspondence Officeo n 03-23-2023 Legal Correspondence Office [id number]#1.00 TIFF [facility] Office/Clinic Note-Physician on 03-23-2023 Office/Clinic Note-Physician [id number]#1.00 TIFF [facility] Patient Correspondenceon Patient Correspondence [id number]#1.00 TIFF [facility] Patient Correspondence [id number]#1.00 TIFF [facility] Patient Correspondence [id number]#1.00 TIFF [facility] Patient Correspondence [id number]#1.00 TIFF [facility] Patient History Officeon Patient History Office [id number]#1.00 TIFF [facility] Family Medicine Office/Clini c Noteon 03-20-2023 [...] re: potential procedure: Clinically currently asymptomatic and miw-vmbs-kcaskwithfl. Please see Dr. Castro's consultation 2. BMI [...] and exercise. 4. Long-term insulin use (Z79.4: alf (current) use of insulin) Dr Ssbbagh following. 5. Mild nonproliferative diabetic retinopathy of both eyes (E11.3293: Type 2 diabetes mellitus with mild nonproliferative diabetic retinopathy without macular edema, bilateral) Follow-up with x ray technologist 6. Type 2 diabetes mellitus with hypercholesterolemia (E11.69: Type 2 diabetes mellitus with other specified complication) Tresiba 50 units SQ every morning with sliding scale per med rec per Dr. Salter. Continue losartan: Sugars improved, surveillance A1c's per Dr. Ruggiero 7. Type 2 diabetes mellitus with stage (more content not included)... [facility] Comment on above: Result Comment: Elec [...] plan? Your health care provider or certified orthotist can help you make a plan for [...] stroke). Where to find more information ? [place] [employer]: www.diabetes.org Summary ? Exercising regularly is important for overall health, especially for people who have diabetes mellitus. ? Exercising has many health benefits. It increases muscle strength and bone density and reduces body fat and stress. It also lowers and controls blood glucose. ? Your health care provider or certified orthotist can help you make an activity plan [...] provider. Document Revised: 11/28/2019 Document Reviewed: 11/28/2019 [employer] Patient Education ? 2022 [employer]. [facility] Nursing Note - Woundon 03-19 Nursing Note - Wound [id number]#2.[address] [facility] Consultation Noteon 03-07-20 23 Consultation Note [id number]#1.00T IFF [facility] CHEMISTRYOrdered By: Lab ROP User on 03-04-2023 Glucose [Mass/Vol] 78 mg/dL Normal 55 - 99 mg/dL [facility] C POC Subsection POC Device SN [id number] Invalid Interpretation Code [facility] [place] Subsection POC Username MACIE POTTS Invalid Interpretation Code [facility] [place] [place] P[place] Subsection Sodium [Moles/Vol] 347668572 mmol/L Invalid Interpretation Code [facility] [place] Subsection Capillary Glucose POCon 02-14 Glucose [Mass/Vol] 78 mg/dL Normal 55-99 [facility] Comment on above: Performed By: #### 2 [id number] #### [facility] [address] [place] [address] Consent for Procedure/Surger yon 03-04-2023 Consent for Procedure/Surgery [id number]#1.[address] [facility] Consent for Treatmenton 02-14 Consent for Treatment [id number]#1.00T IFF [facility] Discharge Instructionson Discharge Instructions [id number]#1.00 TIFF [facility] Insurance Correspondenceon 1 05-05-2022 Insurance Correspondence [id number]#1.00 TIFF [facility] IntraOperative Documentson 1 05-05-2022 IntraOperative Documents [id number]#1.00 TIFF [facility] Main OR Intraoperative Recor don 03-04-2023 Main OR Intraoperative Record IntraOp Document Type FTPM Summary Primary Physician: Nicola Tapia DO Finalized Date/Time: 03/04/23 09:06:01 Pt. Name: EVON CORCORAN Brent Veras/Sex: 1950 Female Med Rec #: [id number] Physician: Nicola Tapia DO Financial #: [id number] Pt. Type: P Room/Bed: / Admit/Disch: 03/04/23 [...] Leanne Montenegro Role Performed Surgeon - Primary Cabana Attendant - Primary Scrub - Primary Time In 03/04/23 09:01:00 03/04/23 09:01:00 03/04/23 09:01:00 Time Out 03/04/23 09:06:00 03/04/23 09:06:00 03/04/23 09:06:00 Procedure HIP INJECTION(Left) HIP INJECTION(Left) HIP INJECTION(Left) Comments Last Modified By: Crow ECHAVARRIA, Estrellita Maria RN, Estrellita Ryder RN 03/04/23 09:05:56 03/04/23 09:05:56 03/04/23 09:05:56 Entry 4 Case Attendee Ervin Mckeon Role Performed Hearing Examiner Time In 03/04/23 09:01:00 Time Out 03/04/23 [...] and tissue Entry 1 Skin Integrity Intact, [place], Warm, and Skin Abnormality No Dry Outcomes [...] injury related (more content not included)... [facility] Main OR Preoperative Recordo n 03-04-2023 Main OR Preoperative Record Holding Area Document Type FTPM Summary Primary Physician: Nicola Tapia DO Finalized Date/Time: 03/04/23 08:19:34 Pt. Name: EVON CORCORAN/Sex: 1950 Female Med Rec #: [id number] Physician: Nicola Tapia DO Financial #: [id number] Pt. Type: P Room/Bed: / Admit/Disch: 03/04/23 [...] Potts RN 03/04/23 08:[address] [facility] Consent for Treatmenton 02-13 Consent for Treatment [id number]#1.00T IFF [facility] Multi-Wound Charton 03-03-20 Multi-Wound Chart [id number]#1.00 TIFF [facility] Nursing Assessment - Woundon 03-03-2023 Nursing Assessment - Wound [id number]#1.00 TIFF [facility] Physician Orderon 03-03-2023 Physician Order [id number]#1.00 TIFF [facility] Progress Note - Woundon 02-13 Progress Note - Wound [id number]#1.[address] [facility] Correspondence - Woundon Correspondence - Wound [id number]#1.[address] [facility] Consent for Procedure/Surger yon 02-24-2023 Consent for Procedure/Surgery [id number]#1.[address] [facility] Consent for Treatmenton 02-13 Consent for Treatment [id number]#1.00T IFF [facility] Multi-Wound Charton 02-25-20 Multi-Wound Chart [id number]#1.[address] [facility] Nursing Assessment - Woundon 02-24-2023 Nursing Assessment - Wound [id number]#1.[address] [facility] Nursing Note - Woundon 02-24 Nursing Note - Wound [id number]#1.[address] [facility] Physician Orderon 02-24-2023 Physician Order [id number]#1.[address] [facility] Procedure - Woundon 02-25-20 Procedure - Wound [id number]#1.[address] [facility] Progress Note - Woundon 02-13 Progress Note - Wound [id number]#1.[address] [facility] Retail - Clinical Noteon Retail - Clinical Note [id number]#1.00T IFF [facility] US venous mapping BI loweron 02-19-2023 US venous mapping BI lower [facility] [address] [place] [address] Ultrasound Report Signed Patient: Evon Corcoran MR#: [id number] [id number] : 1950 Acct:[id number] Age/Sex: 72 / F ADM Date: 02/18/23 Loc: IR Room: Type: [facility] Attending Dr: Miguel Membreno MD Ordering [...] Miguel Membreno M.D.02/19/2023 1:30 PM Dictation Location: [place] [address] Tech: Isabell Duarte Transcribed By: RICH 02/19/23 1330 Dictated By: Miguel Membreno MD 02/19/23 1327 Signed By: 02/19/23 1330 Normal [facility] Blood Urea Nitrogenon 2022 Urea nitrogen [Mass/Vol] 25 mg/dL Normal 7-25 [facility] Comment on above: Performed By: #### C REAT, BUN #### [facility] [address] [place] [id number] [place] Creatinineon 02-18-2023 Creatinine [Mass/Vol] 1.18 mg/dL Normal 0.60-1.20 [facility] Comment on above: Performed By: #### C REAT, BUN #### [facility] [address] [place] [address] [place] Creatinine Clr Calc Pharmacy 49.07 Normal [facility] Comment on above: Result Comment: PERF ORMED BY: [place] [address] PATHOLOGIST ELECTRONIC DEVELOPMENT TECHNICIAN AIRAM ROMEO M.D. Performed By: #### C REAT, BUN #### [facility] [address] [place] [address] [place] GFR/1.73 sq M.predicted MDRD (S/P/Bld) [Vol rate/Area] 48.770 mL/min/{1.73_m2} Normal [facility] Comment on above: Performed By: #### C REAT, BUN #### [facility] [address] [place] [address] [place] Creatinine [Mass/volume] in Serum or PlasmaOrdered By: Miguel Membreno on 02-18-2023 Creatinine [Mass/Vol] 1.18 mg/dL 0.60-1.20 [facility] Lab Reportson 02-18-2023 Lab Reports [id number]#1.00T IFF [facility] No Panel InformationOrdered By: Miguel Membreno on 02-18-2023 Estimated GFR (CKD-EPI) 48.770 mL/Min [facility] Creatinine Clearance (Chem 49.07 [facility] Operative Reporton Operative Report [id number]#1.00T IFF [facility] Retail - Clinical Noteon Retail - Clinical Note [id number]#1.00T IFF [facility] Retail - Clinical Note [id number]#1.00T IFF [facility] Urea nitrogen [Mass/volume] in Serum or PlasmaOrdered By: Miguel Membreno on 02-18-2023 Urea nitrogen [Mass/Vol] 25 mg/dL 10-07 [facility] Insurance Correspondenceon 1 04-20-2022 Insurance Correspondence [id number]#1.00 TIFF [facility] Physician Orderon 02-17-2023 Physician Order [id number] 202 [id number]#1.00 TIFF [facility] CHEMISTRYOrdered By: Lab ROP User on 02-16-2023 Glucose [Mass/Vol] 311 mg/dL High 55 - 99 mg/dL FT C POC Subsection POC Device SN [id number] Invalid Interpretation Code [facility] [place] Subsection POC Username RONI CHOWDHURY Invalid Interpretation Code [facility] POC Subsection Sodium [Moles/Vol] 528679449 mmol/L Invalid Interpretation Code [facility] [place] Subsection Capillary Glucose POCon Glucose [Mass/Vol] 311 mg/dL High 55-99 [facility] Comment on above: Performed By: #### 2 [id number] #### [facility] [address] [place] [address] Consent for Treatmenton Consent for Treatment [id number]#1.00T IFF [facility] Consent for Treatment [id number]#1.00T IFF [facility] Main OR Preoperative Recordo n 02-16-2023 Main OR Preoperative Record Holding Area Document Type [facility] Summary Primary Physician: Gary Cerda MD Finalized Date/Time: 02/16/23 13:36:16 Pt. Name: YOKASTA CORCORANLAW Veras/Sex: 1950 Female Med Rec #: [id number] Physician: Gary Cerda MD Financial #: [id number] Pt. Type: P Room/Bed: / Admit/Disch: 02/16/23 [...] 13:19 Bertha Chowdhury RN 02/16/23 13:36 [facility] Multi-Wound Charton 02-17-20 Multi-Wound Chart [id number] 201 [id number]#1.00 TIFF [facility] Nursing Assessment - Woundon 02-16-2023 Nursing Assessment - Wound [id number]#1.00 TIFF [facility] Nursing Note - Woundon 02-16 Nursing Note - Wound [id number]#1.00 TIFF [facility] Patient Correspondenceon Patient Correspondence [id number]#1.00T IFF [facility] Consent for Procedure/Surger yon 02-10-2023 Consent for Procedure/Surgery [id number]#1.00 TIFF [facility] Consent for Treatmenton 01-15 Consent for Treatment [id number]#1.00T IFF [facility] Multi-Wound Charton 02-11-20 Multi-Wound Chart [id number] 102 [id number]#1.00 TIFF [facility] Nursing Assessment - Woundon 02-10-2023 Nursing Assessment - Wound [id number]#1.00 TIFF [facility] Nursing Note - Woundon 02-10 Nursing Note - Wound [id number]#1.00 TIFF [facility] Physician Orderon 02-10-2023 Physician Order [id number] 102 [id number]#1.00 TIFF [facility] Procedure - Woundon 02-11-20 Procedure - Wound [id number] 102 [id number]#1.00 TIFF [facility] Progress Note - Woundon 01-15 Progress Note - Wound [id number]#1.00 TIFF [facility] Insurance Correspondenceon 04-05-2022 Insurance Correspondence [id number]#1.00 TIFF [facility] Insurance Correspondenceon 04-04-2022 Insurance Correspondence [id number]#1.[address] [facility] [place] [facility] [place] Patient Letter [facility] January 29, 2023 EVON CORCORAN [address] [place] [address] EVON CORCORAN L 1950 We are pleased [...] in the following areas: ? Assign a Battery Tester And Repairer who will work with you to help [...] phone contact on 02/19/2023 at 08:00 AM. [facility] Battery Tester And Repairer [phone] opt. #[address] [facility] Consent for Procedure/Surger yon 01-27-2023 Consent for Procedure/Surgery [id number]#1.[address] [facility] Consent for Treatmenton 01-14 Consent for Treatment [id number]#1.00T IFF [facility] Multi-Wound Charton 01-28-20 23 Multi-Wound Chart [id number] 102 [id number]#1.[address] [facility] Nursing Assessment - Woundon 01-27-2023 Nursing Assessment - Wound [id number]#1.[address] [facility] Nursing Note - Woundon 01-27 Nursing Note - Wound [id number]#1.[address] [facility] Physician Orderon 01-27-2023 Physician Order [id number] 102 [id number]#1.00 TIFF [facility] Procedure - Woundon 01-28-20 Procedure - Wound [id number] 102 [id number]#1.00 TIFF [facility] Progress Note - Woundon 01-14 Progress Note - Wound [id number]#1.00 TIFF [facility] Ambulatory Visit Summaryon 03-28-2022 Ambulatory Visit [...] With: Denton Mares DPM Where: [facility] Thursday 9:45 AM EST With: Where: [facility] Thursday 8:45 AM EST With: Gary Cerda MD Where: [facility] 2022 8:00 AM EST With: Linda Solorio CNP Where: [facility] Invalid Interpretation Code [address] [place] [address]- \.br\ Thursday 8:00 AM EST \.br\ With:\.br\ Where: [facility] Primary [facility] Family Medicine Office/Clini c Noteon 01-26-2023 [...] of clutter to prevent tripping and/or falling. [place] Advance Directives reviewed. Documents remain at home, [...] Labs were ordered, to be completed with [facility] Mammogram and DEXA scan up to [...] as directed. 3. 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 Follows up with labs, DM supplies and dosage adjustments as needed. Reviewed available sites that can be used to administer Insulin, patient voices understanding. Will continue as directed. 4. Chronic renal impairment, stage 3a (N18.31: Chronic kidney disease, stage 3a) Follows with [facility], Dr. Núñez. Encouraged with avoiding NSAID's. Healthy Kidney Nutritional education material provided. Goals to keep blood sugars and blood pressure under better control to reduce cardiovascular risk factors. Medications and blood work monitored with visits. Continues taking statin medication daily. 5. 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 Stressed importance of loosing weight as being overweight does produce more lipids. Risks may also increase with a family history of hyperlipidemia. Encouraged with healthy dietary choices to reduce risk factors associated with CVA. Will continue to follow up with labs as directed. 6. Anticoagulated (Z79.01: alf (current) use of anticoagulants) Taking Xarelto and [...] of Hepatitis C for people born between 5043-6052. Hand (more content not included)... [facility] Comment on above: Result Comment: Elec tronically Signed By: Christopher WELLS DO, FAAFP\.br\Date and Time Signed: 01/26/23 17:15 EST\.br\Electronically Co-Signed By: Lesly West LPN\.br\Date and Time Co-Signed: 01/26/23 09:21 EST Nursing Assessment - Woundon 01-26-2023 Nursing Assessment - Wound [id number]#2.[address] [facility] Nursing Note - Woundon 01-26 Nursing Note - Wound [id number]#2.[address] [facility] Patient Educationon 01-27-20 Patient Education Caregiving [...] Keep items that you use often in xdwy-ro-ayejh places. Lower the shelves around your home [...] the way. ? Do not use floor luxembourgish or wax that makes floors slippery. What [...] Control and Prevention, STEADI: www.cdc.gov ? National [place] on Aging: www.[place].nih.gov Contact a doctor if: [...] provider. Document Revised: 12/02/2021 Document Reviewed: 10/03/2020 [employer] Patient Education ? 2022 [employer]. Endocrinology Diabetes Melli (more content not included)... [facility] Screenson 01-26-2023 Screens [id number] 021 [id number]#1.00TI FF [facility] Multi-Wound Charton 01-24-20 23 Multi-Wound Chart [id number] 105 [id number]#1.[address] [facility] Physician Orderon 01-23-2023 Physician Order [id number] 105 [id number]#1.[address] [facility] Consent for Treatmenton Consent for Treatment [id number]#1.00T IFF [facility] Consent for Procedure/Surger yon 01-14-2023 Consent for Procedure/Surgery [id number]#1.[address] [facility] Consent for Procedure/Surgery [id number]#1.[address] [facility] Nursing Assessment - Woundon 01-14-2023 Nursing Assessment - Wound [id number]#1.[address] [facility] Nursing Note - Woundon 01-14 Nursing Note - Wound [id number]#2.[address] [facility] CHEMISTRYOrdered By: Cynthia Serrano se on 01-13-2023 HbA1c (Bld) [Mass fraction] 11.5 % High <=5.9% [facility] ChemAutoSS Consent for Treatmenton 12-16 Consent for Treatment [id number]#1.00T IFF [facility] Consent to Photographon 12-16 Consent to Photograph [id number]#1.00T IFF [facility] Correspondence - Woundon Correspondence - Wound [id number]#1.00T IFF [facility] Correspondence - Wound [id number]#1.00T IFF [facility] Correspondence - Wound [id number]#1.00T IFF [facility] [id number] 01-13-2023 HbA1c (Bld) [Mass fraction] 11.5 % High <=5.9 [facility] Comment on above: Performed By: #### 2 [id number] #### [facility] [address] [place] [address] Multi-Wound Charton 01-14-20 Multi-Wound Chart [id number] 002 [id number]#1.00 TIFF [facility] Nursing Assessment - Woundon 01-13-2023 Nursing Assessment - Wound [id number]#1.00 TIFF [facility] Outside Recordson 01-13-2023 Outside Records [id number] 231 [id number]#1.00T IFF [facility] Patient Correspondenceon Patient Correspondence [id number]#1.00 TIFF [facility] Physician Orderon 01-13-2023 Physician Order [id number] 002 [id number]#1.00 TIFF [facility] Procedure - Woundon 01-14-20 Procedure - Wound [id number] 002 [id number]#1.00 TIFF [facility] Progress Note - Woundon - Progress Note - Wound [id number]#1.00 TIFF [facility] Insurance Correspondenceon 1 Insurance Correspondence [id number]#1.[address] [facility] Radiology Outside Office Pulverizer Feeder yon 01-07-2023 Radiology Outside Office Copy [id number]#1.[address] [facility] Consent for Treatmenton 12-15 Consent for Treatment [id number]#1.00T IFF [facility] Consultation Noteon 01-07-20 Consultation Note Patient: [...] red blood per rectum) / SNOMED CT 029786169 / Confirmed Breast cancer screening by mammogram / SNOMED CT 606763446 / Confirmed CAD in [place] artery / SNOMED CT 84438746 / Confirmed Change in bowel habits / SNOMED CT 399918202 / Confirmed Chronic renal impairment, stage 3a / SNOMED CT 9438108886 / Confirmed Claudication of both lower extremities / SNOMED CT 327365431 / Confirmed Colon polyp / SNOMED CT 907921616 / Confirmed Degenerative localized arthritis of hip / SNOMED CT 689506668 / Confirmed 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 / SNOMED CT 398881541 / Confirmed Diabetes / SNOMED CT 314694973 / Confirmed Diarrhea / SNOMED CT 268519566 / Confirmed Enthesopathy of left hip region / SNOMED CT 92187841 / Confirmed Familial hypercholesteremia / SNOMED CT 0890764196 / Confirmed Hemorrhoids / SNOMED CT 641693376 / Confirmed History of colon polyps / SNOMED CT 0030627017 / Confirmed History of DVT in adulthood / SNOMED CT 8301269753 / Confirmed HTN - Hypertension / SNOMED CT 9868866760 / Confirmed Hypertensive heart and chronic kidney disease without heart failure, with stage 1 through stage 4 chronic kidney disease, or unspecified chronic kidney disease / SNOMED CT 4334691485 / Confirmed noted in 12/10/2021 Nephrology Consult Note page 3. added per outpatient CDI policy. Long-term insulin use / SNOMED CT 9076444834 / Confirmed Current Medication List includes Tresiba. added per outpatient CDI policy. Lumbar disc herniation / SNOMED CT 400328251 / Confirmed Lumbar stenosis / SNOMED CT 08842990 / Confirmed Mild nonproliferative diabetic retinopathy of both eyes / SNOMED CT 813821412 / Confirmed noted in 08/21/2019 Diabetic Eye Exam. added per outpatient CDI policy. Morbid obesity / SNOMED CT 300021721 / Confirmed Non-smoker / SNOMED CT 51109512 / Confirmed Primary ovarian failure / SNOMED CT 524950836 / Confirmed Sleep apnea / SNOMED CT 847786949 / Confirmed Type 2 diabetes mellitus with hypercholesterolemia / SNOMED CT 629345286 / Confirmed linked DM with hypercholesterolemia per outpatient CDI policy. Type 2 diabetes mellitus with stage 3 chronic kidney disease / SNOMED CT 778767639 / Confirmed linked DM with CKD (more content not included)... [facility] Comment on above: Result Comment: Elec tronically Signed By: Prashant PIMENTEL, Gary Gomez\.br\Date and Time Signed: 01/06/23 09:13 EDT HIPAA Forms Officeon 023 HIPAA Forms Office [id number] [facility] [id number]#1.00 TIFF [facility] Legal Correspondence Officeo n 01-06-2023 Legal Correspondence Office [id number]#1.00 TIFF [facility] Legal Correspondence Office [id number]#1.00 TIFF [facility] Office/Clinic Note-Physician on 01-06-2023 Office/Clinic Note-Physician [id number]#1.00 TIFF [facility] Patient Correspondenceon Patient Correspondence [id number]#1.00 TIFF [facility] Patient Correspondence [id number]#1.00 TIFF [facility] Patient Correspondence [id number]#1.00 TIFF [facility] Patient Correspondence [id number]#1.00 TIFF [facility] Patient Correspondence [id number]#1.00 TIFF [facility] Patient History Officeon Patient History Office [id number]#1.00 TIFF [facility] Radiology Outside Office Pulverizer Feeder yon 01-06-2023 Radiology Outside Office Copy [id number]#1.00 TIFF [facility] Consent for Treatmenton 12-14 Consent for Treatment [id number]#1.00T IFF [facility] MRI Pelvis (Bony) w/o contra ston [...] MD Transcribed by: KATEY Technologist: NUBIA [facility] RAD - MRI Screening Formon 1 RAD - MRI Screening Form [id number]#1.00 TIFF [facility] Physician Orderon 12-24-2022 Physician Order [id number] 004 [id number]#1.00T IFF [facility] Physician Order [id number]#1.00T IFF [facility] Outside Records Officeon Outside Records Office [id number]#1.00 TIFF [facility] Referrals Officeon Referrals Office [id number] 021 [id number]#1.[address] [facility] Consultation Noteon 12-23-19 Consultation Note [id number] 002 [id number]#1.00T IFF [facility] Physician Orderon 12-22-2022 Physician Order [id number] [id number]#1.[address] 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 [...] Appointments Thursday 8:00 AM EST With: Where: [facility] Normal [address] [place] [address]- \.br\ You Need to Schedule the Following Appointments\.br\ Follow Up with RUSSELL SHEPHERD FAAFP, Christopher Montenegro, CHERISE, PED When: In 3 months\.br\ Where:\.br\ [address], [address]\ [place] [address].br\ \.br\ Medications\.br\ What How Much When Why Instructions\.br\ New doxycycline (doxycycline hyclate 100 mg Cap) 1 Capsules By Mouth 2 times a day Venous stasis ulcer Refills: 1 Pickup at [facility] #[facility]854\.br\ Unchanged amlodipine (amLODIPine 5 mg Tab) 1 [...] Mouth Every day\.br\ Pharmacy Information\.br\ [id number]: [address] [place], [place] [id number] [phone]\.br\ Medications and Immunizations Administered\.br\ Not Given\.br\ influenza virus vaccine, inactivated, Patient Refuses\.br\ Allergies\.br\ Aldactazide (Hives)\.br\ Cardura (Unknown)\.br\ Diovan (Unknown)\.br\ Glucophage\.br\ Hytrin\.br\ Prinivil\.br\ Zestril (Diarrhea)\.br\ hydrochlorothiazi de-lisinopril (Diarrhea)\.br\ Problems\.br\ Ongoing - Any problem that you are currently receiving treatment for.\.br\ BRBPR (bright red blood per rectum)\.br\ Breast cancer screening by mammogram\.br\ CAD in [place] artery\.br\ Change in bowel habits\.br\ Chronic renal [...] home:\.br\ Medicines\.br\ ? \.br\ Take or apply pjwj-ojj-xjnrsbj and prescription medicines only as told by [...] cannot use soap and water, use hand bowl sander.\.br\ ? \.br\ Change your bandage as told [...] for help if you feel david [facility] Family Medicine Office/Clini c Deliaon 12-18-2022 [...] ER daily. 3. Long-term insulin use (Z79.4: alf (current) use of insulin) Tresiba 50 units [...] in 6 (more content not included)... [facility] Comment on above: Result Comment: Elec [...] at home: Medicines ? Take or apply ojla-tzr-kzlpjvk and prescription medicines only as told by [...] cannot use soap and water, use hand bowl sander. ? Change your bandage as told by [...] day for signs of infection. ? Take frfq-vur-dgktvgd and prescription medicines only as told by your doctor. ? Keep all follow-up visits as told by your doctor. This is important. This information is not intended to replace advice given to you by your health care provider. Make sure you discuss any questions you have with your health care provider. Document Revised: 12/26/2021 Document Reviewed: 12/26/2021 [employer] Patient Education ? 2022 [employer]. [facility] Consultation Noteon 12-16-19 Consultation Note [id number] 002 [id number]#1.00C D:127 Normal [facility] MRI Spine Lumbar w/o Contras ton [...] NUBIA Technical Comments None [facility] Consent for Treatmenton 11-15 Consent for Treatment [id number]#1.00C D:[address] [facility] RAD - MRI Screening Formon 0 12-08-2022 RAD - MRI Screening Form [id number]#1.00 CD:[address] [facility] Physician Orderon 11-26-2022 Physician Order [id number] [id number]#1.00CD :[address] [facility] Physician Order [id number] [id number]#1.00CD :[address] [facility] BD Bone Density DEXAon 11-25 BD [...] MD Transcribed by: KATEY Technologist: TRISTAN Gonzalez [facility] [place] Mamm Screen w/CAD if perf [...] very important to your health. The current [employer] and National Comprehensive Cancer [...] 2-Benign finding Recommendation: Normal interval follow-up [facility] Consent for Treatmenton 11-14 Consent for Treatment [id number]#1.00C D:127 [facility] Consultation Noteon 11-24-19 Consultation Note [id number] 040 [id number]#1.00CD :127 [facility] Consultation Noteon 11-14-19 Consultation Note [id number] [id number]#1.00C D:127 Normal [facility] Family Medicine Office/Clini c Noteon 11-06-2022 [...] and some weakness, I take WC to [place] so I walk and do Wheel Chair. Pain stays in the hip. After walking approximately 10 minutes at [place] patient needs to get into wheelchair secondary to the pain in her left hip. Patient reports no poor color no radiation of pain into left thigh and nor leg nor foot. Diabetes is now managed per Dr. Ruggiero, her last A1c at Dr. Ruggiero's office was 8.9 and the 1 prior to that was 13. Dr. Oliveira is her regional vice president life sales and she believes she sees him next [...] We will refer to orthopedics here at [facility]. Physical therapy [facility]. Patient defers x-rays and well allow access orthopedics to perform at time of evaluation. Discussed possibility of bursitis and possible injection under fluoroscopy via orthopedics [place] [facility] [place] [facility] [place] Evaluate Patient, Develop a Plan of Care, & Implement Plan (more content not included)... Normal [facility] Comment on above: Result Comment: Elec [...] these instructions at home: Medicines ? Take latx-sgs-gkathjo and prescription medicines only as told by [...] Reviewed: 02/25/2022 Elsevier Patient Education ? 2022 [employer] Normal [facility] Physician Referralon 023 Physician Referral [id number]#1.00 CD:127 Normal [facility] US arterial duplex LE LTon 0 11-04-2022 US arterial duplex LE LT [facility] [place] [address] Ultrasound Report Signed Patient: Evon Corcoran MR#: [id number] 844 : 1950 Acct:[id number] Age/Sex: 72 / F ADM Date: 11/04/22 Loc: [facility] Room: Type: [facility] Attending Dr: Renetta Barahona KNOWLEDGE ARCHITECT-C Ordering Provider: Renetta Barahona APRN Date of [...] MD 11/04/22 1307 Signed By: 11/04/22 1309 [facility] US ankle/arm indiceson 11-03 US ankle/arm indices [facility] [place] [address] Ultrasound Report Signed Patient: Evon Corcoran MR#: [id number] 844 : 1950 Acct:[id number] Age/Sex: 72 / F ADM Date: 11/03/22 Loc: [facility] Room: Type: [facility] Attending Dr: Miguel Membreno MD Ordering [...] 11/03/22 1024 Signed By: 11/03/22 1026 [facility] CHEMISTRYOrdered By: Cole Martin SYSTEM on 10-31-2022 Albumin [Mass/Vol] 3.4 g/dL Normal 3.3 - 5.0 gm/dL F [facility] Remisol Anion gap [Moles/Vol] 11 mmol/L [...] rate/Area] 43 mL/min/1.73 m2 Low >=59mL/min/1.73 m2 [facility] Chem S Glucose [Mass/Vol] 316 mg/dL [...] ratio] 22 mg/mg High 10 - 20 [facility] Remisol CHEMISTRYOrdered By: Jeniffer Rosas on 10-31-2022 Albumin Elph (U) [Mass fraction] 8.4 mg/dL Invalid Interpretation Code FT Remisol Creatinine (U) [Mass/Vol] 132.6 mg/dL Invalid Interpretation Code [facility] Remisol U Prot/Creat Ratio 63.30 mg/gm Cr Normal 0.00 - 200.00 mg/gm Cr FT Remisol Consent for Treatmenton 10-14 Consent for Treatment [id number]#1.00C D:127 Normal [facility] Physician Orderon 10-31-2022 Physician Order [id number]#1.00 CD:127 Normal [facility] Renal Panelon 10-31-2022 Albumin [Mass/Vol] 3.4 g/dL Normal 3.3-5.0 [facility] Comment on above: Performed By: #### 1 [id number], [id number] ####[facility] [address] [place] [address] Anion gap [Moles/Vol] 11 mmol/L Normal 6-16 [facility] Comment on above: Performed By: #### 1 [id number], [id number] ####[facility] [address] [place] [address] Calcium [Mass/Vol] 8.4 mg/dL Low 8.9-11.1 [facility] Comment on above: Performed By: #### 1 [id number], [id number] ####[facility] [address] [place] [address] Chloride [Moles/Vol] 104 mmol/L Normal 101-111 [facility] Comment on above: Performed By: #### 1 [id number], [id number] ####[facility] [address] [place] [address] CO2 [Moles/Vol] 27 mmol/L Normal 21-31 [facility] Comment on above: Performed By: #### 1 [id number], [id number] ####[facility] [address] [place] [address] Creatinine [Mass/Vol] 1.3 mg/dL Normal 0.5-1.3 [facility] Comment on above: Performed By: #### 1 6963526, [id number] ####[facility] [address] [place] [address] Glucose [Mass/Vol] 316 mg/dL High 55-199 [facility] Comment on above: Result Comment: If t his glucose result represents a fasting glucose, interpretation should refer to the following reference range: 55-99 mg/dL Performed By: #### 1 [id number], [id number] ####[facility] [address] [address] Phosphate [Mass/Vol] 3.8 mg/dL Normal 1.9-4.6 [facility] Comment on above: Performed By: #### 1 1594655, [id number] ####[facility] [address] [place] [address] Potassium [Moles/Vol] 4.2 mmol/L Normal 3.5-5.3 [facility] Comment on above: Performed By: #### 1 0889448, [id number] ####[facility] [address] [place] [address] Sodium [Moles/Vol] 138 mmol/L Normal 135-145 [facility] Comment on above: Performed By: #### 1 1857280, [id number] ####[facility] [address] [place] [address] Urea nitrogen [Mass/Vol] 28 mg/dL High 5-21 [facility] Comment on above: Performed By: #### 1 4535697, [id number] ####[facility] [address] [place] [address] Urea nitrogen/Creatinine [Mass ratio] 22 No Units High 10-20 [facility] Comment on above: Performed By: #### 1 3873608, [id number] ####[facility] [address] [place] [address] U Protein/Creat Ratioon 10-14 Albumin Elph (U) [Mass fraction] 8.4 mg/dL Invalid Interpretation Code [facility] Comment on above: Result Comment: The reference range and other method performance specifications have not been established for this test; results should be integrated into the clinical context for interpretation. Performed By: #### 1 [id number], [id number] #### [facility] [address] [place] [address] Creatinine (U) [Mass/Vol] 132.6 mg/dL Invalid Interpretation Code [facility] Comment on above: Result Comment: The reference range and other method performance specifications have not been established for this test; results should be integrated into the clinical context for interpretation. Performed By: #### 1 [id number], [id number] #### [facility] [address] [place] [address] U Prot/Creat Ratio 63.30 mg/gm Cr Normal .00-200.00 [facility] Comment on above: Performed By: #### 1 [id number], [id number] #### [facility] [address] [place] [address] URINALYSISOrdered By: Rosa Chacon on 10-31-2022 Bacteria [...] AM) Normal Negative [facility] UA Auto SS [place].plasma/Lith ium.RBC (Bld) [Mass ratio] 0-3 /HPF Normal [...] AM) Invalid Interpretation Code 1.005 - 1.030 [facility] UA Auto SS UA Spec Desc Clean Catch (10/31/22 7:33 AM) Normal [facility] UA Auto SS Urobilinogen Qn (U) 0.7469183 {Donell'U}/dL Normal 0.0 - 1.0 EU/dL [facility] UA Auto SS WBC Auto Ql (U) 1+ *ABN* (10/31/22 7:33 AM) Invalid Interpretation Code Negative [facility] UA Auto SS WBC LM.HPF (Urine sed) [#/Area] 6-15 /HPF Invalid Interpretation Code 0-5/HPF [facility] UA Auto SS Urinalysison 10-31-2022 Bacteria LM Ql (Urine sed) 1+ /HPF Abnormal Trace [facility] Comment on above: Performed By: #### 1 [id number], [id number] #### [facility] [address] [place] [address] Bilirubin Ql (U) Negative Normal Negative [facility] Comment on above: Performed By: #### 1 0696538, [id number] #### [facility] [address] [place] [address] Clarity (U) CLEAR Normal Clear [facility] Comment on above: Performed By: #### 1 2808426, [id number] #### [facility] [address] [place] [address] Color (U) YELLOW Normal Yellow [facility] Comment on above: Performed By: #### 1 9255675, [id number] #### [facility] [address] [place] [address] Epithelial cells.squamous LM.HPF (Urine sed) [#/Area] 0-2 Normal 0-2 [facility] Comment on above: Performed By: #### 1 6989653, [id number] #### [facility] [address] [place] [address] Glucose Test strip (U) [Mass/Vol] 2+ Abnormal Negative [facility] Comment on above: Performed By: #### 1 7436716, [id number] #### [facility] [address] [place] [address] Hemoglobin Ql (U) Negative Normal Negative [facility] Comment on above: Performed By: #### 1 0649965, [id number] #### [facility] [address] [place] [address] Ketones (U) [Mass/Vol] Negative Normal Negative [facility] Comment on above: Performed By: #### 1 7986413, [id number] #### [facility] [address] [place] [address] [place]ham.plasma/Lith ium.RBC (Bld) [Mass ratio] 0-3 Normal 0-3 [facility] Comment on above: Performed By: #### 1 8918501, [id number] #### [facility] [address] [place] [address] Nitrite Ql (U) Negative Normal Negative [facility] Comment on above: Performed By: #### 1 9512369, [id number] #### [facility] [address] [place] [address] pH (U) 6.0 [pH] Invalid Interpretation Code 5.0-9.0 [facility] Comment on above: Performed By: #### 1 4077855, [id number] #### [facility] [address] [place] [address] Protein (U) [Mass/Vol] Negative Normal Negative [facility] Comment on above: Performed By: #### 1 8493447, [id number] #### [facility] [address] [place] [address] Specific gravity (U) [Rel density] 1.025 Invalid Interpretation Code 1.005-1.030 [facility] Comment on above: Performed By: #### 1 1476957, [id number] #### [facility] [address] [place] [address] Type of Urine collection method Clean Catch Normal [facility] Comment on above: Performed By: #### 1 2407226, [id number] #### [facility] [address] [place] [address] Urobilinogen Qn (U) 0.2 {Donell'U}/dL Normal 0.0-1.0 [facility] Comment on above: Performed By: #### 1 6792200, [id number] #### [facility] [address] [place] [address] WBC Auto Ql (U) 1+ Abnormal Negative [facility] Comment on above: Performed By: #### 1 1083479, [id number] #### [facility] [address] [place] [address] WBC LM.HPF (Urine sed) [#/Area] 6-15 Abnormal 0-5 [facility] Comment on above: Performed By: #### 1 9756005, [id number] #### [facility] [address] [place] [address] eGFRon 10-31-2022 GFR/1.73 sq M.predicted among non-blacks MDRD (S/P/Bld) [Vol rate/Area] 43 mL/min/1.73 m2 Low >=59 [facility] Comment on above: Order Comment: Order added by Discern Expert. Result Comment: Labeler jin kidney disease could be indicated at eGFR's of less than 60 mL/min/1.73m2. Kidney failure is indicated at less than 15 mL/min/1.73m2. Performed By: #### 1 7755959, [id number] ####[facility] [address] [place] [address] RAD - Ultrasound Reporton RAD - Ultrasound Report [id number]#1.00C D:127 Normal [facility] Retail - Clinical Noteon Retail - Clinical Note [id number]#1.00C D:127 Normal [facility] VAS LAB Carotid Artery Dupl ex Ultrasounon 09-17-2022 VAS LAB Carotid Artery Duplex Ultrasoun [address], [address] [facility] [place] [address] Vascular Lab Report Carotid Artery Duplex Ultrasound Patient Name: EVON Mckeon Physician: [id number] Fariha Guidry MD, [facility] Study Date: 09/17/2022 Referring FARIHA GUIDRY Physician: MRN/PID: [id number] PCP: Christopher Wells DO Accession/Order#: [id number] CC Report to: Date of : 1950 Technologist: PRAVEENA Gender: F Technologist 2: Admission Status: Outpatient Location Performed: [facility] Diagnosis/ICD: S52-Jtaeqomtt and giddiness; I73.9-Peripheral vascular disease, unspecified Indication: CAD, PTCA, High Risk Medication Use, Vascular Disease, Diabetes, HTN, Hyperlipidemia, CKD-Stage III, DVT, OMRALES, Obesity Procedure/CPT: 73102 Cerebrovascular Carotid Duplex scan complete-95491 CONCLUSIONS: Right Carotid: Findings are consistent with [...] cm/s Right Left ICA/CCA Ratio 1.4 2.0 63641 Fariha Guidry MD, FACC Final Normal [facility] VASC LAB Carotid Artery Dupl ex [...] (bright red blood per rectum) CAD in [place] artery Change in bowel habits Chronic renal impairment, stage 3a Claudication of both lower extremities Colon polyp Diarrhea Familial hypercholesteremia Hemorrhoids History of colon polyps History of DVT (more content not included)... Normal [facility] Comment on above: Result Comment: Elec [...] Bulgur wheat. Millet. Quinoa. Bran muffins. Popcorn. Crawford wafer crackers. Meats and other proteins Harmony beans, kidney beans, and chase beans. Soybeans. [...] Cream cheese. Sour cream. Fats and oils [place]. Beverages Soft drinks. Other foods Cakes and [...] Document Revised: (more content not included)... Normal [facility] Medication Refillon 08-23-19 Medication Refill [id number]#1.00C D:127 Normal [facility] CBC w/Indiceson 08-01-2022 Erythrocyte distribution width (RBC) [Ratio] 14.0 % Normal 10.9-14.2 [facility] Comment on above: Performed By: #### 1 [id number], [id number] #### [facility] [address] [place] [address] Hematocrit (Bld) [Volume fraction] 39.9 % Normal 34.0-46.0 [facility] Comment on above: Performed By: #### 1 3217190, [id number] #### [facility] [address] [place] [address] Hemoglobin (Bld) [Mass/Vol] 12.7 g/dL Normal 12.0-16.0 [facility] Comment on above: Performed By: #### 1 4079929, [id number] #### [facility] [address] [place] [address] MCH (RBC) [Entitic mass] 27.9 pg Normal 27.0-34.0 [facility] Comment on above: Performed By: #### 1 0881267, [id number] #### [facility] [address] [place] [address] MCHC (RBC) [Mass/Vol] 31.8 g/dL Normal 31.4-36.0 [facility] Comment on above: Performed By: #### 1 2230238, [id number] #### [facility] [address] [place] [address] MCV (RBC) [Entitic vol] 87.6 fL Normal 80.0-100.0 [facility] Comment on above: Performed By: #### 1 5416007, [id number] #### [facility] [address] [place] [address] Platelet mean volume (Bld) [Entitic vol] 10.5 fL Normal 6.4-10.8 [facility] Comment on above: Performed By: #### 1 8270639, [id number] #### [facility] [address] [place] [address] Platelets (Bld) [#/Vol] 227.0 E9/L Normal 150.0-500.0 [facility] Comment on above: Performed By: #### 1 4628353, [id number] #### [facility] [address] [place] [address] RBC (Bld) [#/Vol] 4.6 E12/L Normal 4.3-5.9 [facility] Comment on above: Performed By: #### 1 8781435, [id number] #### [facility] [address] [place] [address] WBC corrected for nucl RBC Auto (Bld) [#/Vol] 7.3 E9/L Normal 4.0-11.0 [facility] Comment on above: Performed By: #### 1 7422308, [id number] #### [facility] [address] [place] [address] Consent for Treatmenton 07-14 Consent for Treatment [id number] D:127 Normal [facility] Lipid Panelon 08-01-2022 Cholesterol [Mass/Vol] 128 mg/dL Normal 120-200 [facility] Comment on above: Performed By: #### 1 3766602, [id number] #### [facility] [address] [place] [address] Cholesterol in HDL [Mass/Vol] 47 mg/dL Invalid Interpretation Code [facility] Comment on above: Result Comment: HDL > or equal to 60 mg/dL: Low cardiovascular risk HDL < 40 mg/dL : High cardiovascular risk Performed By: #### 1 2528095, [id number] #### [facility] [address] [place] [address] Cholesterol in LDL [Mass/Vol] 59 mg/dL Normal <=129 [facility] Comment on above: Performed By: #### 1 0592788, [id number] #### [facility] [address] [place] [address] Cholesterol in VLDL [Mass/Vol] 27 mg/dL Normal 7-40 [facility] Comment on above: Performed By: #### 1 3650514, [id number] #### [facility] [address] [place] [address] Triglyceride [Mass/Vol] 133 mg/dL Normal <=149 [facility] Comment on above: Performed By: #### 1 8452354, [id number] #### [facility] [address] [place] [address] Physician Orderon 08-01-2022 Physician Order [id number]#1.00 CD:[address] [facility] Reminderson 2022 Reminders - From: Adore [...] on 06/11/[address] [facility] Retail - Clinical Noteon Retail - Clinical Note [id number]#1.00C D:[address] [facility] Ambulatory Visit Summaryon 0 06-11-2022 Ambulatory [...] AM EDT With: Linda Solorio CNP Where: [facility] Normal [facility] Gastroenterology Office/Clin ic Noteon 06-11-2022 Gastroenterology [...] was previ (more content not included)... Normal [facility] Comment on above: Result Comment: Elec tronically Signed By: Linda Solorio CNP\.br\Date and Time Signed: 06/11/22 09:30 EDT Patient Educationon 06-12-19 Patient Education [facility] High-Fiber Diet Fiber, also called dietary [...] Bulgur wheat. Millet. Quinoa. Bran muffins. Popcorn. [place] wafer crackers. Meats and other proteins Harmony, kidney, and chase beans. Soybeans. Split peas. [...] Cream cheese. Sour cream. Fats and oils [place]. Beverages Soft drinks. Other foods Cakes and [...] 03/02/2006 Document Revised: 01/04/2018 Document Reviewed: 01/04/2018 [employer] Patient Education ? 2019 [employer] Gastro (more content not included)... Normal [facility] Reminderson 06-11-2022 Reminders - From: Linda Solorio CNP To: Doretha Henry; Sent: 06/11/2022 09:24:04 EDT Show up: 06/11/2022 09:24:00 EDT Subject: Ambulatory Reminder Reminder/Recall Colonoscopy in 2029. [address] benson 05/21/2029 From: Doretha Henry To: [facility] - Reminders/Recalls; Sent: 06/11/2022 12:14:24 EDT ! Show up: 04/16/2029 12:14:00 EST Due Date/Time: 05/14/2029 12:14:00 EST Normal [facility] IntraOperative Documentson 0 05-30-2022 IntraOperative Documents [id number]#1.00C D:127 Normal [facility] Result Letter Officeon 05-30 Result Letter Office May 30, [address] [place] [address] EVON CORCORAN 1950 Below is a summary [...] letter prior to your next due date. [facility] [phone] Normal [facility] Postoperative Documentson Postoperative Documents [id number]#1.00C D:127 Normal [facility] Coding Summary.on 05-26-2022 Coding Summary. CD:[id number] Gh0 bWw+PGhlYWQ+GE2XAEWuH92 qvNCuiT1vS7IPXWaKChbhZN CYRKqKNfGeteHjIB5hjOIzN XJu IC8+BW3xFUYnTyqxhRHfz0A 9dYJ9P45aqz6rRTdezJQ9NR ZpGjCsugyzb0icvGo0KRxrU mluOyBt TUOpiE82VYU5eD19Wd74gYG xyCMgl1egzCo1OwZjQIIlNS X0aZspRXavi3FbKUVnQ49kg MZxt9N9 KTGzvSgigLQcKnEudNO5lZ5 sDQeswgrvm3ijhqurBgr6zs 01nNJua4W8eDZ8S3YxxiG3L GJvbGQg XqzsyVCOwX8gvzguo2iuwje dKdSfYZOuXAh9NOh5MDNblG dlRjKiWA98YFR2GBVasgHbM 2FsLWFs bRxnTuR2u6G6Mj6WD7MCBic lB9LFEZDDYVsjiQF+PC90cj 36O4CeZpygRss0AESuGLV3r NV6nU9j DFXwGYqtm7D5hMP7V1AakiV zax8vm8ezEXAeUAxbE61qqF Tip3E9ZZNfuLR0MAMvzSkzU iBzaG93 Oyc+KLRrkZyww8PvKnfyo2j zt7gcvHn1UeizKJFgvjAdeU vyLXP0s3GvEk0cIQMraWJ9k XX9bH6j NsShRlM5QXphM808IzIeqEW eDznrD25tR1SanHU+PHRyPj g2OJJhcVamDU4kZ9ZkUAFfr mctbGVm mFrdEG7jEUEqotshEDYbsG9 zOLIfJ1k6KtAgXuG7YHbuU9 CwPGOrbibqWm36cC5cLbFcY oK3OOdx E2PksbD7XHVyxCLcZZnmNDS 7J90vh7V9QLFjSUBfLBU9oJ G4nP0uzTrhzxmyyBAvoQidw mVydGlj GUnyXYnbJ757CNLcbZwbEdI vZGluZyBEYXRlOiAgMDMvMT MvMjAyMzwvdGQ+SJPeIRC5m WxlPSAn lLVsGHagDt0pxHvdoBhuOP4 kBHPcepxiJLGmcA9fBHYiyN HxpSgbRI8wVRZhpmten940R iAxMHB0 GPFbeIWhZ7EslL3jNcSgFMI dMBIkF2IpiJErKBcpV033SG pmPxW2IKAteaYwS5KeHTQlp WduOiB0 q9P5Ci7Ep3UvidwvY9WfzUJ rCgSxOggoZMw5Q2RhUbbvgI I+ZE99VHWgWV97DJn1LOF6z WxlPSdi UVMzQ9QidW8uRhMjTGQsKZQ kOyc+PHRhYmxlIHdpZHRoPS jhLDPjEsBtiCnfBM3hTy8jV GVyLWNv qJmlfOMcXcEzs3xcWWHlRXe nDM6owZdiL6ZdyOL0IDJzo8 w4Lq33A31gK0XwhSV+PGNvb GG5dJX5 bO4fAiGyHgC1KAigH086HdK epDOnUzyns9hge1eotJm2Vt M2SHMhxdGvtHzwHWA1e0MwL e31J51u IHdpZHRoPSIxNSUiIHZhbGl bia0duL7zFi4+EBCvlZI8tI G7cT4eJtXbBeT4ZLakJ467U nRvcCIv Ubvtu8htn6vmrTq0HgIsZCR unsFemZoaHPP6t0EnId05G5 AiuAyaj1NzLfo3th75mOIlj 1G1wIG1 K8BpWDEqmmpwpBIgzEbvQI5 fIWEdwpazQNXdpG5eWMBwH5 i8ApKhRhC4QVetI8CkfdM0F GJvbGQg QCQfqTWHxX7uwigjy8qfwks tUrBhFLWdAXb1FFk5RLLvcS rnMaXlCES6CfA5TJC7oQIod M8ftQfs uzqybC9bGes+XGL5sOUpzTE NIV9tAurrtUZ+SGFyRHS1uF grWFfaZLHwaX1iNLMuC7l9W iAwLjA1 JUubV6MdfcN4YLLnjRTdEUP chFJEeC5yhflxn8qvefaxPa YxCRDqJQo0UWm0PLLaeUllD iBsZWZ0 FyG3QDX5kRUfkQ3aqKanbsx flJ2pXmh+LhxijSyeWAW8RW b2C2XxSgz5ATSpnCfaVC7ag GFkZGlu Ph0twRjdnYewCD6cJZPpona zv284ClLhs0ogAYRbsLUgTN mfEGS9B45vu3A3TNEaUYSbT MC4uSO6 xL8qaJkwaifudEQavQeierN zdQhqXIcpHRagK617EBRdhR bbFfGfLYd4N7LxVkc0FLOze UopXE1d yOQzZIejVl3puRbxyYnzBC8 dRICzmxdcv189FzSta9foCM BulNMyZIqmHRO0T22mx4T0X CMwMDAw NGV5cJO0iR2uwAzxkxgxaWI mdDsgdmVydGljYWwtYWxpZ2 88OBYxlQoyXqVdrGd7A3VrA uo4PBJu gZwqOO8jlSKxNDmtJd4qcSo yyLlvQI1hQSFcpueme932Hb Vgq7bzRRTarWGdKAsqVPE1N 80pw8B3 COZsZLMhWOY7sZE2eX5cxEm nbjogbGVmdDsgdmVydGljYW jaYDfiS188HWBykRszHxJbs GllbnQg AGqgMOh6L7QzRpkzoCS+PC9 3KIZoZC64kQCsqBEiu6egcF u8BsYsGANfOVV4zHeyNTkvm 3JkZXIt N41tiVZkp0O7PTZfoBvttMB yZfGfhOB7yK6zEPwsnvvmp5 afejgvBfxxn4wkbq03uR22V 29sIHdp ZHRoPSIzMCUiIHZhbGlnbj0 fmA9rHy3+MBMbkTB5cYI9wZ 2mDXQiSxM4ULyuU280ObQik CIvPjxj b0jhy7ahtHb4KcN2XCIiwhH twGptMKT7r9YnMy86O94iYK dpZHRoPSIyMCUiIHZhbGlnb s3fjH3y Ii8+OGEinGK3eZS9qY3hJxC uMzZ8DEzmH627QrOidQLsQi crV22mG7KvnJN+WXUgRjc7U CBzdHls HJ1weNZsGTnsIq9jOXF3GuX fJtMhQHzzS4VnETVafrpvgw hraYD0KKGjYLNgoN01Cx1qw DogMTBw xNYOgN8reixht7idwmcwOgO aNDXlOCm6IWb5WRAalUdzUf ObXAB9PhR8JWA1mNTqpH6zo Glnbjog vX8tI2AoLPHwylthEy12fP8 aTpWrLzS6HSjwXjg+VFJVTV DRO2LADGSMIWEZRnHYLO12C Z19nIZy n9I9rTV0Y0GuURXxephmdkl gzEP0IWUzBHRhsT99kJEmXV kcNo1on3F4t986SJYyTWTzb Y49Uj6i tSrrQXWnnROLcR7okorvq2x ncslcClKxROPsMIh5VZv3ZX VymVwwLzAzPZV0JjW5QOQ2b FXqzQ3g pKikxltctB0rBcn+MDQvMTE hLZp1MUcrvFY+IWPuEAE6aE ekRPrzMOTwcT3zRZLlM2h4B iAwLjA1 LAydL9JvAHFgsrpjEu73kK6 eXbIpVkX3VPuzI0EboqF5EV YezTExZXqyLJM0Z12au9R6P CMwMDAw CVP0uGQ1rN5wfPjmztncwPT mdDsgdmVydGljYWwtYWxpZ2 46IHRvcDsnPjcyIFllYXJzP S35NC17 oYWfe2K0iWG7I0EhPALeebi flzhlbUM2PFRjLGNufU59qQ IyBNlmWz4ex1P7s651LGBtB DUwaW47 Tn7hbFaeGEAxxDNWiU1zrja et4qkibsyXsYzOYOrYPu3NL u1PGAinKwqOrAnRXD4AbU2O AP5oPZv mG8upWmqkzeyhG7uYyl+RmV lVGyaZB16WY87oRHod5F5yC A0C0XnMNWwanfgflhcsZL6Q DAuMDUw zB07jHSgJSzjJf6mn6N2p38 3UHVgSXQmcI80Jq4raMkaZJ XfxZLLuK3lextfj9crxnuoG zAwMDAw EFo6IKu3JCGraZqkFsRjEWX 4MeZ6VXY1uNHzkE0hcTprno poiF7tGmh+N6F1hIR7wZWql DwvdGQ+ LK29ks36A3XoIvhbWti6CXY dHWI8oFF7eU7aZFFtVIvir5 X6yST4B4OkibOvob6gm4fgW XBzZTog U07lcGYcx2W9JTZpbVH0KNO vzGavRzTfqQ97Ndd+PGNvbG tba0KwRilbp0cct4tyvZr9M jMwJSIg ehIwlCqfRCU5b4ZdXu90A87 sIHdpZHRoPSIzMCUiIHZhbG doni8uhL0cDb3+PAZinHE4t OI9vN5v FmZmLzQ7IYhaQ513HaUzyER hOhhzz5sdd1kusBo6EbUwGP ExobRgdYueMDZ2f4YdNj36E 2NvbGdy k4GvLsp2sl48zHAqy2N3iZY 0Q3NxSEUsokrwkREiiMwlSH 1dBYDdpvetPPBxnY2iFKSkS 7o7HjBm SmV8AExcR8NngbC9SQCtpUA wKLQhpQQCpV3ppsahd1gwby byLfGkJERzNWi9KZq8JGEgm WduOiBs WGF5KuR7HRI3aFDakF9ylPh gahrnmY9sDfv+WFl0u4wpxI AoNB4jrER3LS15DE65bSErm 6P6vWL3 Q1OnTTWtsonxzthhtQY2HTO rURAksL34Yy1oaOurKl7vQF BhYJE9ITKpnOSlD5JpbT0wL iAjMDAw ESAuM0TniUMdDIfcF229HQv uUvR6EBAthcBmJ4NmHSMoxZ piAiQ0t5A3Px2CRF03WW69E V45nWGa r8Q2vJX0W7XrZRXtzfdokji tjLC0NJZaFWAdgO51Pg4glJ ofYl9uTRMeYUK7AAMhjKArZ 2JheL0a ZgEnPZGwKCQuI9YasKUfICu uI024AKosGqA2LBHxfrMiF9 OhWXGlvOdeInM6w9M7Wc5BJ h58AH48 LW94oTZpf3T8yLF0G5WkYKR xktfgykxghXZ7ZELkJCOwnJ 02Hu3ofIhfDi0lATFiHGD1K FRpbWVz P7VttZ2hPeQkAGJjCOIoJ8T ecYZqUKogZ445NAkvYjY3CG IsugMwT5EuQMMdgPviMtD0s 6Y5Rq9Q KWyxbqq7U1HaHmcdgCN+PC9 5KTUpXJ72jSEmiNBrf9qmsP b9DvDjZSEeYLT3pJguJGwzn 3JkZXIt Y29s (more content not included)... Normal [facility] Main OR Intraoperative Recor don 05-26-2022 Main OR Intraoperative Record IntraOp Document Type FT Summary Primary Physician: Luis BENSON MD Finalized Date/Time: 05/26/22 08:45:38 Pt. Name: EVON CORCORAN /Sex: 1950 Female Med Rec #: [id number] Physician: Luis BENSON MD Financial #: [id number] Pt. Type: O Room/Bed: / Admit/Disch: 05/21/22 [...] Johnston RN, Esha Diane Role Performed Anesthesiologist Cabana Attendant - Primary Staff - Other Activities Leader Time In 05/21/22 13:14:00 05/21/22 13:14:00 05/21/22 [...] and tissue Entry 1 Skin Integrity Intact, [place], Warm, and Skin Abnormality No Dry Outcomes [...] of positioning (more content not included)... [facility] Consenton 05-22-2022 Consent [id number] CD:127 [facility] Discharge Instructionson Discharge Instructions [id number]#[id number] CD:127 [facility] Consent for Treatmenton Consent for Treatment [id number] D:127 [facility] Endoscopic Procedure Report - Otheron 05-21-2022 [...] Return to activities:: After 24 hours. [facility] Comment on above: Result Comment: Elec tronically Signed By: Luis BENSON MD\.br\Date and Time Signed: 05/21/22 13:31 EST Other Comment: Soila ariza Attachment - attachment storage system not supported [id number] Can be viewed in source systemMissing Attachment - attachment storage system not supported [id number] Can be viewed in source system Inpatient Patient Summaryon 05-21-2022 Inpatient Patient Summary [address] [address] [facility] Clinical Discharge Instructions PERSON INFORMATION Name: EVNO CORCORAN [facility]#:[id number] PHYSICIANS Admitting Physician: Luis BENSON MD Attending Physician: Luis BENSON MD PCP: Christopher WELLS DO, FAAFP Discharge Diagnosis: Diarrhea Comment: PATIENT EDUCATION INFORMATION Instructions: Colonoscopy, Care After Surgery Marcelino (ARLENE); Colon Polyps Medication Leaflets: Follow up: With: Address: When: Luis BENSON [address] [place] [address]. [address] [place], [place] [id number] [employer] (1) Comments: office will call for follow [...] Q-10) By Mouth every day. Comment: [facility] Main OR PACU I Recordon Main OR PACU I Record PACU Phase I Document Type FT Summary Primary Physician: Luis BENSON MD Finalized Date/Time: 05/21/22 15:15:56 Pt. Name: NILOEVON/Sex: 1950 Female Med Rec #: [id number] Physician: Luis BENSON MD Financial #: [id number] Pt. Type: O Room/Bed: / Admit/Disch: 05/21/22 [...] By: Maryellen Bonilla RN 05/21/22 15:15 [facility] Main OR Preoperative Recordo n 05-21-2022 Main OR Preoperative Record Holding Area Document Type FT Summary Primary Physician: Luis BENSON MD Finalized Date/Time: 05/21/22 12:19:52 Pt. Name: EVON CORCORAN/Sex: 1950 Female Med Rec #: [id number] Physician: Luis BENSON MD Financial #: [id number] Pt. Type: O Room/Bed: / Admit/Disch: 05/21/22 [...] By: Fritz Dover RN 05/21/22 12:19 [facility] Monitor Recordon 05-21-2022 Monitor Record [id number] D:127 [facility] Monitor Record [id number]#1.00C D:127 [facility] Outpatient Surgery Discharge Instructionon 05-21-2022 Outpatient Surgery Discharge Instruction [address] [address] Patient Discharge Instructions PERSON INFORMATION [...] Follow up: With: Address: When: Luis Dow [address] [place], [place] [id number] Business (1) Comments: office will call for follow up Pharmacy Information: [facility] You may receive a survey from [employer] asking you to rate your care experience. Your feedback is important and will help us understand what we do well and how we can improve the quality of care we provide to you, your loved ones and our community. It?s an honor to serve you. Thank you for choosing [facility] HERE ARE THE MEDICATION CHANGES THAT [...] Some feelings (more content not included)... [facility] Patient Education - Texton 0 05-21-2022 [...] that are (more content not included)... [facility] Progress Note-Physicianon Progress Note-Physician Patient: EVON CORCORAN Age: 71 years Sex: Female : 1950 Associated Diagnoses: None Author: Nahun PIMENTEL, Vinod Greer Postoperative Information Postoperative disposition: Postoperative disposition: To PACU. Optimetrix number: Optimetrix number [id number]. Anesthetic utilized: General. Physical Examination Vital Signs [...] meets criteria ( To home ). [facility] Comment on above: Result Comment: Elec [...] Problems Bile salt-induced diarrhea / SNOMED CT 735066443 / Confirmed BRBPR (bright red blood per rectum) / SNOMED CT 100159634 / Confirmed CAD in [place] artery / SNOMED CT 34058602 / Confirmed Change in bowel habits / SNOMED CT 836229721 / Confirmed Chronic renal impairment, stage 3a / SNOMED CT 4428743207 / Confirmed Claudication of both lower extremities / SNOMED CT 478994370 / Confirmed Familial hypercholesteremia / SNOMED CT 3722276874 / Confirmed History of colon polyps / SNOMED CT 4194597642 / Confirmed History of DVT in adulthood / SNOMED CT 9673571176 / Confirmed HTN - Hypertension / SNOMED CT 9306416836 / Confirmed Hx of colonic polyps / SNOMED CT 1954822877 / Confirmed Internal hemorrhoids with complication / SNOMED CT 0851427942 / Confirmed Mild nonproliferative diabetic retinopathy of both eyes / SNOMED CT 387204603 / Confirmed noted in 08/21/2019 Diabetic Eye Exam. added per outpatient CDI policy. Non-smoker / SNOMED CT 90225642 / Confirmed Type 2 diabetes mellitus with hypercholesterolemia / SNOMED CT 712292958 / Confirmed linked DM with hypercholesterolemia per outpatient CDI policy. Type 2 diabetes mellitus with stage 3 chronic kidney disease / SNOMED CT 075981014 / Confirmed linked DM with CKD per outpatient CDI policy., Active Problems (16) Bile salt-induced diarrhea BRBPR (bright red blood per rectum) CAD in [place] artery Change in bowel habits Chronic renal [...] EST Height/Mike (more content not included)... [facility] Comment on above: Result Comment: Elec tronically Signed By: Nahun PIMENTEL, Vinod Greer\.br\Date and Time Signed: 05/21/22 12:46 EST Giardia, Direct, EIAon 05-14 G. lamblia Ag IA Ql (Stl) Negative Invalid Interpretation Code Negative [facility] Comment on above: Result Comment: Perf ormed at: [address] [id number] PhD Armin Zaldivar Performed By: #### 1 [id number], [id number], 81396894, 22422827, 29177749, [id number] ####[facility] [address] [place] [address] O & P EXAM, ROUTINE, REFLEXo n 05-14-2022 Ova and parasites identified Concentration Nom (Stl) Comment Invalid Interpretation Code [facility] Comment on above: Result Comment: No o va, cysts, or parasites seen. One negative specimen does not rule out the possibility of a parasitic infection. Performed at: [address] [id number] PhD Armin Zaldivar Performed By: #### 1 [id number], 48055081, 29430483, 98370204, 42885313, [id number] ####[address] [place] [address] O & P Exam, Routineon 2022 Ova and parasites identified LM Nom (Unsp spec) Final report Invalid Interpretation Code [facility] Comment on above: Result Comment: Thes e results were obtained using wet preparation(s) and trichrome stained smear. This test does not include testing for Cryptosporidium parvum, Cyclospora, or Microsporidia. Performed at: [address] [id number] PhD Armin Zaldivar Performed By: #### 1 [id number], 79712291, 52115471, 05994850, 31573340, [id number] ####[address] [place] [address] Coding Summary.on 05-12-2022 Coding Summary. CD:[id number]:[id number] Gh0 bWw+PGhlYWQ+HA4FUQHmY51 dzFWjuF4RW0yUJL8AEEOLZM YUAS0FQI9xjES9OOcoZ7Hkn iAv OoockBNyEW35PCh2MZB6qEq zTDwxfT6lmQVwS9i2NaToBY 37fL53SGsiQYTrQsE1NiUdx jsgbWFy F1lhAqYedWUlWvg+PHRhYmx lIHdpZHRoPScxMDAlJyBzdH ieMG7iHl8dXTTbBOXonQqmt HNlOiBj d9tuMMUsVDweEV9ljTovN6Q taUQ4NIMca6g3Ea23tFG+PH NmBTJ9mBcrNRsia157DrKvw 6mbXBY3 jJMxGQhwGCZ2U56mf1M0ABI sNSQvDUN7sKO7cL4asEmwqz qhI1EucASwClI7NWL0fQWde A2lcSuh jxwkqS7dIvh+X78RMM9FJNY LQX2ZNzz6S6PpVbulxIZ+PC 85GECxCO16lWAdlUUvf4gvo Xj3PqQa SOQgCLX8vOvxXXfjw3JyZBP iP96cwZGaq6O2FXPxrIfpaK AtIqPibBN0kR3gCDfhojrbg 2hvdzsn Tajzv9injd44iT78R88aNVw cQKPxULA2LNYjZYMrpRgydj 4lpG2hRn9+YGlun4qow0ltc Xs4FuNv CEPwdnVwqNsqHLT0m3FwKq0 6W3AnzXuuu5KjWga9nz60uK Ene8Y8zEM1TFuiIHGwdR2yN WxlZnQ6 HIHzUwTbgM32vODmWOyfDl0 diSoicCnhXW5jGABsbahlRI PstE9zHNQodUIknTypQS1vC TBpbjtm i382EdEfCUO4WLHopSOxH1R beX4iHhOsWDJhEDOgX7PqxR UqIFwcT856UCcvFqO0DXXav hYgF3Cb UVJafDooDrP9h1K4Dl5Kz3Y nryzvXHG4POluTDFzGdZ2Fn BxYtF6U7QbOpy3CHYlqMtkX D8nN0Fb VDOoqsryhsenzCB7TWLdCAM dvC28kIDqKHotAe4zw8G1w5 64XPUoRADquN36Xv9wvNlqC TBwdCBU iR3ubmnxg0seybukMqIeOST tVQj0RXi0RYZgwRgaWaJkEJ D5BmF8OYK3wGOfzV2yhRoqm bsfbI9c Oyc+W99fkN7wFTA2QZI3naw jDPKesuKuOV02UU68J5YmBw wvdGFibGU+PGRpdiBzdHlsZ Y4jFoKg u8cyk7YrHXiwN2WkWHFnUAw tDhz3OUUmYCZ6zFT3nQ5lKV GqGKhlt5P5bOT6M5IpsvZsk q3xx8dd LCBoWNgxW27okCWno1K6HEY ygND5UWXnoFmgNvJieC57Od c+SXXavZywt2MnTrzrr4pvx 6sqyUr8 FbKlQYYbfdCclVwuRCJ5h9Q aFa58G05cMZggNIUnYXNmLO ZjMKAcqWiqkf9fwM6xZm7+P GNvbCB3 yNX9kJ6bSKOlKyE6AJnjC22 9XvOklZWtIrhfg9idx1mbmW y6GyLwGDUwflIhnNolAGX4d 7IiQq51 X00ySMmcBPLeCQPfMRGtCCJ yhQxhyz6kzJ9vMr8+PC9jb2 hdgo78dK74jVR+EVKvGLG7a WxlPSdw WYIsyQ1dXGloDfA5UDDvVoH llZ33vGLrDQusEb4gtVloeU taFN4yJFTyprrlk282LkOkj 2xkIDEw hQBpPYurOIN9X57io1E2IKH iPMMgDUX2cRL4eS4oeGdihu ogbGVmdDsgdmVydGljYWwtY ZadR761 IHRvcDsnPlBhdGllbnQgTmF uRKx2V9JjXin2VEGenYxcYQ 5mlWFaLVrpLz9rjQdkhXdpG T4bCLBq lcjkd303CuKpp6llCROhoNT fLIjfCSC5F60lu0F1KAWbOR GmAIK6oJW3pK6waAmiligzv GVmdDsg kyNohNspMIvzLDcjN112JVT czBbrEcNctiDfEJGhgYI4ZZ 29TP17sOZmi1B7sEP6Z5OjT GRpbmct hrzugXT8NPHaOTByxF09Pr5 gkIzoGm7sUCHmTXA5EOTulP SuL3MilH5dYlBqWFDgIMFqR 3RleHQt SIqpD984IXctNjU3AYXntiG lJ5SjLRHrsIldEfN2l8Q2Ra 3JW3P8VT17CN36uJEwz3V2n JH1F8Li LPXkiojfgjtihWK3ERDpQYP hlV99Ld7iuCxxRd8sUCUiAC L6OJBqhJCiP5MpmK8fGjXkK DAwMDAw G3AxxNXgWJphQ569GXatMmX 1ALDjvcVgT6DdHJRxrXukHp G0t6H5Vo3QMWu5ZM35VO60q LMng1O1 tEQ0Q9LdZDYgbuyommgvpJG 3ZHNfDCPmjF91Mx6cwMyoBc 6rEDDhLXH4RRGwjRRaG6Xfi M8rHhCd QAHnNLVcL0JcbABiLWvcO06 8AIqsYfN4YDEcqqRsB7JgFX KjoNweNkY7k5V3Tm0JTKQsE Q47QYH2 uGI0TW00NU88J7RkDjzmmZR ibGU+PHRhYmxlIHdpZHRoPS dfSMKoWsQymMxdMF0iEi1hJ GVyLWNv rRfrmIAmFqYpk9kyYMTuADw dEY1yjBhaJ5UwiBC9KECmr4 l3Ne37V27hJ2WjjGT+PGNvb UL0lMF3 zD2iLaVpWqU0ROolS113NsM sjTCeFakke2qnm7tyuKq4Pp S1UZUrebJafVnzRWX5e5IcI h55G04r IHdpZHRoPSIxNSUiIHZhbGl sac5siD4mWe6+YCMknOX5sS J9jG7fPfHxRnQ3ZFwfE468R nRvcCIv Qevau3beu5terNs6VqXwWCX gkdOvvUicLLX8t2CbEs27T1 RykFgjs0MaBez3bp52wLMvn 8Q7zRR1 F6TuCMHfbxvicAKliKfoUD4 lCGSavskrNUFeyW4hBWNaB6 f5UbDyZoZ4RCryJ3BgydC8A DEwcHQg XHfvPTY9N34wx5O1YEEhDWW hZUW2wUK5xV4rdJmwimzxlH VmdDsgdmVydGljYWwtYWxpZ 246IHRv tOzjMLVigS5tFJUnkDBxfSe kFF4lUHFuyssoRpJWAS2XR6 sXFfqiN7NOGJ7mCDkveLP+P HRkIHN0 gAokRXgsZEImyM9xIAVtM1j 5XjSeGnK6DCpbX3YqADFbzj iwSw17oM3gDpLhYrQ5DXkgD 3VcmkT1 XCDrsTScPJvtTVO6W08fn2M 0KDFsWSXeDAB5eAO0bZ2nnK lnbjogbGVmdDsgdmVydGljY WwtYWxp F578CMHjkOxtTwX1JhDjDjP 5JFN1Y6UrZtq9PMFbkNxaGB 6mpFIoKZptHk4vvOgppGwzC M9hHUTe pugqNAZkjO1eWMWclAIixId bUZ9iNVPyxmidv849MiQhBN V8INNigBNoB0XhqT9pOuEbW DAwMDAw Y6PeiRUhEYzbZ370AXujOvC 5GCQccvDaF5FjUIUsyTouPz A5u3M7Pd44StIIKYPnhxocp GQ+PHRk HNN4jSmoOFfmMOGgmR4sNSH eO3i4GjPaRyO2RPngO1RsYQ FaupumLp36tW8mQoMpObV2R IbwZ0Wa baC9KHLfcGVfRUkhNPM5B37 qt4Q3FDXgQLWuBMD8kFC3oJ 1hbGlnbjogbGVmdDsgdmVyd GljYWwt GFemG432OPKbgTfkRoLgqVS sZTwvdGQ+TTWuHHV8yOrjFP qrDPOtaK9bDMFkE0x5BdYmZ iN7OXzh L8TeGETqslydQr76xC4cDkM yHyA8AZkoT6XhlnJ1LDVtaA ZhZOjiIQH0U51xn2D5HPSfW DAwMDA7 hTI4qM9luUhakbymhJPvyAy mawInpZkpFHfzTSqlC704MD CviWfyBqvpBoBNpi5yPE4rW jwvdGQ+ FA70ro45V5XeMbohWrj1QFJ qJER7jBF1iQ1uTBStGJmkk7 X9vSM8O6EulbYbui4ce5ypW XBzZTog N57otBGcx8F0ITKirUJ2LGE gmKdqCcYkvJ77Abw+PGNvbG eey8EgCadps0orx3otmSo2F jMwJSIg rlLevDynGAU9b7LqZb50L44 sIHdpZHRoPSIzMCUiIHZhbG jcti3xwF9yEi8+OMBgnIT3q QF9vO5m WaJaCgM8AGqaL941QgTadMW pCzzqi6jcn6hqlHl3LcLrAL FfknHhwBquROC2k8FoCn40E 2NvbGdy z5DnOdg1iu49vNMfk7R0nFO 2T4OpGSDltqckwXBwcKdoSK 0fUOYzvnntEHBgnD8qTAMnF 3g5SxCf ZuK8IZhhP4DjmsN8OEJbfCQ vZKRopGOGdK8jcosou1pbkb fjApIjZOKbPWx6CQe2LCUbw WduOiBs YUL3UmN5LYO2kPHseW1cfMx lrjxqsR8wEpv+RHu2i9dszP TaND3acCH2BO40RW04jUHxp 3M4oNY1 M4ErCNMpyjhikujziEF4JIH cJLJncS08El7jwNurKz6dSL VrDMM7VVLjaUKfU9GupU5cU iAjMDAw YGXrU3NguWZvXShhW545MQm yVsD6CIIeiyMhU2AkSEDfmF psGpW1n4K5Gf5LCP90YI82O K03mSWe t4P1mHY1R2IaLKFeqfnyrtw geML6LWPpEILooZ13Df5oiT xwWp2tYRGkYTJ0KXLzoXAiT 2PkbV8n NmLdFVHlCUOxC7YluEVgIJu sL873KWcrYwL1AYKusdOnF7 MbRUDskVedLgS5g2A4Uc1VM c92GM74 ZC84dLJqe0B0vAH5Y9NtJBI ukzpishtvbJK1QKYeEITwvL 33Sd2dwSerUr7hQDBxGQE2S FRpbWVz Q2GxjR2hSkGdJKDlEAKcV7E adEMqBPtjN808OFtsSpW7AG GzgeWiT1ZzDIGnxCspVeR3n 8Q1Ik7N VDsbmxs4K7UdHbeolUW+PC9 6FEGyJD54uKCvwMUbw5xoqT o0SvOhTVOuLFB5xDppRGvmn 3JkZXIt Y29s (more content not included)... [facility] CDiff PCRon 05-08-2022 CDiff PCR Unable to perform te st due to consistency of stool. C. Difficile testing will only be performed on diarrheal (unformed) stool unless ileus due to C. difficile is expected. Reference: Clinical Practice Guidelines for Clostridium difficile Infection in Adults, Infection and Hospital Epidemiology July 2009, Vol 31, No 5. [facility] Cdiff Specimen Acceptable Unacceptable [facility] Comment on above: Performed By: #### 1 [id number], 65450281, 56931805, 91250492, 14683354, [id number] ####[facility] [address] [place] [address] Order Cancelled YES [facility] Comment on above: Performed By: #### 1 [id number], 44565229, 50455903, 36335263, 37628248, [id number] ####[facility] [address] [place] [address] Enteric Panel by PCRon 05-08 C. coli+jejuni+upsalie nsis DNA ARCELIA+non-probe Ql (Stl) Not detected [facility] Comment on above: Result Comment: Test ing was performed utilizing reverse director of compensation (RT), polymerase chain reaction (PCR), and array [...] nulcleic acid test. Performed By: #### 1 144357357, 58540552, 03428744, 55994785, 32968162, [id number] ####[facility] [address] [place] [address] E. coli stx1+stx2 genes ARCELIA+non-probe Ql (Stl) Negative [facility] Comment on above: Performed By: #### 1 522645856, 37962007, 22707490, 64369731, 98502101, [id number] ####[facility] [address] [place] [address] Enteric Panel by PCR Negative [facility] Enteric Panel Intrl QC Pass [facility] Comment on above: Result Comment: Test ing was performed utilizing reverse director of compensation (RT), polymerase chain reaction (PCR), and array [...] 1 and 2. Performed By: #### 1 [id number], 61433117, 52443927, 40417947, 06769780, 5409532084 ####[facility] [address] [place] [address] Norovirus genogroup I+II RNA ARCELIA+non-probe Ql (Stl) Not detected [facility] Comment on above: Performed By: #### 1 756689365, 78938845, 09260688, 68120050, 12861453, [id number] ####[facility] [address] [place] [address] Rotavirus A RNA ARCELIA+non-probe Ql (Stl) Not detected [facility] Comment on above: Performed By: #### 1 725871844, 99997351, 11869078, 66993463, 90904981, 5655433276 ####[facility] [address] [place] [address] S. enterica+bongori DNA ARCELIA+non-probe Ql (Stl) Not detected [facility] Comment on above: Result Comment: This test result should be correlated with clinical presentations and medical history by a healthcare provider to determine its clinical significance. Performed By: #### 1 889486282, 76214551, 67579047, 23292513, 06494243, [id number] ####[facility] [address] [place] [address] Shigella species+EIEC invasion plasmid antigen H ipaH gene ARCELIA+non-probe Ql (Stl) Not detected [facility] Comment on above: Performed By: #### 1 387152506, 83207191, 29146204, 93596271, 68070685, 6341949492 ####[facility] [address] [place] [address] V. cholerae+parahaemol yticus+vulnificus DNA ARCELIA+non-probe Ql (Stl) Not detected [facility] Comment on above: Performed By: #### 1 556559351, 43007066, 50111528, 58379791, 57159384, 9308723925 ####[address] [address] Y. enterocolitica DNA ARCELIA+non-probe Ql (Stl) Not detected [facility] Comment on above: Performed By: #### 1 139920471, 59762597, 26518325, 50659936, 57041462, 0988071067 ####[facility] [address] [place] [address] Fecal WBC Lactoferrinon 04-17 Fecal WBC Lactoferrin Negative Normal Negative [facility] Comment on above: Result Comment: The semi-quantitative detection of elevated levels of fecal lactoferrin is a marker for fecal leukocytes and an indication of intestinal inflammation. Performed By: #### 1 844500729, 31455308, 98631979, 06601836, 66670264, [id number] ####[facility] [address] [place] [address] MICRO OTHER TESTSOrdered By: Cynthia Case on 05-08-2022 Fecal WBC Lactoferrin Negative (05/08/22 9:00 AM) Normal Negative [facility] [place] [facility] Coding Summary.on 05-07-2022 Coding Summary. CD:[id number] Gh0 bWw+PGhlYWQ+RI8JHKBpE69 stQGxdK0BC7iQLI7NYBXUJQ VBCC9HJM6hrZG7WVepJ5Fmb iAv BfgfdITaWR22OFi6FII5tLq bBZpfnN2grQUsD9d1ZyViIJ 41kZ48HTzdBGUtSxI9AiKkj jsgbWFy X4czAuAxnQIyXjm+PHRhYmx lIHdpZHRoPScxMDAlJyBzdH jvYN8fZt1mSWLjRHBywQtdl HNlOiBj s1umVKUfFIocSJ9tzPfzL3F mbUJ6KCYbk3h8Hg82iIT+PH NuTLN3jMpjNXncs905WyLvf 1ezOQU7 eQEyTTvaKBI3O69bt1P9IFT nHXBdUGT3wZE0wF2qtIokvf xnL6EetGOgRfB8HVJ4kQQze C8soQlq iaqwoM7qDzb+S84QKT1VGGQ TLQ6CEcs1Q6JwFibaeOD+PC 05VELcGG85oXFqqMNsa1stb Uz1AhKf DGXbMCI7aEhcWLxlp5HuUOL cR24duTFsv4Q6HVAerNppfG FjZkNawKQ9uK1sYTraudikz 2hvdzsn Uqeub2tuwr92tT21I36pTAo eZKAiAKJ6RYQqUNFusVksvw 5ulI7aEs2+ZKnem3ubw6jrj Uo9ZtGi FIQeisGdcGcdZWG9d5ChRz8 0J3JhgPnks8FnMji8wt85cF Qrb8B8tYL5EEnkBVXxgG4vO WxlZnQ6 JELdGwKpkT90bIXvNZtgYz2 kjXxnxGjfAQ5yVNLdhnopDZ CbkT2sVRRohBVubIpeEW5wI TBpbjtm b422NnGiORC0LPAinUJiL1C fjQ3hYyYeRDOpLCZzY3AwaK JtHTabH234ODbuUbR6QLQdd dFeD9Ij MDTkcOdyJwG4a1W3Ho1Qv9A jubtwRVB4WOxnUXOxPnJyHc SjAxO8V0YwCwn8FAHteMtdK E3jV4Cz AHTwdbtfrnsiqUZ5JUDkXQB iyV05hCDcWVsrFh7fv2Z0h6 95ZUEpCPSmcA42Dp9wvNajX TBwdCBU mY6aiwjte1jlfvkaQdJbVIV fIIf7MMj0WIEijHofSaCjXD Z4RwW3PBD4iVHvkC2hfCafn domgC5v Oyc+P32wlR1vPZC7TRJ4lep fOSLfpnBjGL59EF44Y9ErGh wvdGFibGU+PGRpdiBzdHlsZ T1tSkJy y0zxc3CjBArtO2DqJUTpBAv gCzh3ZHTuOVZ1pRG2wV9hEJ AxBQyzm8Y1oAI1T9DpprFyw e3yl4gj IHUkBUesY01mdEOfx2B9KYY btJG5QQLvwEelHlAodS97Ce c+KOPmqSsij9WiXhptm3yaj 6gtwHz8 OkEpLIOdeiWrwKomICO1a5H rRc81X87uFQhpDJLhVLHbUO TkJTFlkEkkyy4ddU3xTb7+P GNvbCB3 sII4nK2oLMMqKmH1YUzuG11 7LpBwpYAcVfzci0lol7krrF n5GmZeDQEeexGqfFqmBQY1r 9StSe60 V13rPQunTPXpEKRiPHAkTCP uqNqhqf4vgX4wSx5+PC9jb2 ronq03dA81jHJ+AERuVAO0s WxlPSdw HZFcnB6yCBslCoR1HJFgYzV ogA99aHBiTFbyQa8whFsjgO cqZV5eSTQwsgfqa484YkGkk 2xkIDEw gTYnUQkeJVO7E81hm2Y4ZFI fSTXrSCQ7sGU1uB5tvIipqa ogbGVmdDsgdmVydGljYWwtY JjbR276 IHRvcDsnPlBhdGllbnQgTmF nZMy8K7GoWxg8THTveHctME 2vfPJaKSgxEm6jiCjkbVlvK E1mHTUp awooh523BfCny5aoWPVfmFA vQZlhDHK7W77om1D3DTTlVP XnRXP4nAW8cY1bkGtkyixol GVmdDsg krWpkOqlTKqcEUnyY524HQS orAgeJxVzchRpRMKitSP3MR 76YP66pQXhs7Z4pEJ5D6QuN GRpbmct iabusGN2SBPaHJFosP56Sz0 vtCtdAj6cRFJoIJC0MHGquC FtO6XitR4gElFuMIJaJQTjV 3RleHQt QVjrL423RQupAsN6UTFxosS vE6IuUYXxeIezHzL3g1H2Jp 7IY7M4DS08VN06bKTda1M7b YA3I2Tw HEUjvmatejopiPP3IBKgAPO apC64Ek7hhUhiSs5rPWHlPA W6XUWmsZNxL7LwqO5eWrZeY DAwMDAw V5KewRMxDMyhS852RIurFtC 6UPEpjtPsF3AhQCRtdOvbEh Q1z2O2Is8LNQd9SL25FZ32d WVdv6I2 bQD7H0OfRSBtlqxtyvqqsSN 5HPYoPRFogG64Pb0otDnrBb 0vCOCkGZE6LLAfjMVxF4Ref E9lRmWz QPSjDPIiW1BpuNAaIQjtJ66 7UBfdBlG8XXPzjzLrO8KxBG WqkEsaIhW1e6C7Kz7JJBFbK L28UJF5 lGP3OQ87IY38W6LwOfjcjWF ibGU+PHRhYmxlIHdpZHRoPS ejBAUfCoUxgGfbHX3qIc8nD GVyLWNv tVivqUKwQiJmk5lrQLLmJHs jDI7ghPqsU4CdyKQ3LWHou4 p4Ou55E67uS3OrtXF+PGNvb JD7pWX2 qC3sXcYmTcA4SOkhO402RmE zvMWuUtsbd9xsi5vdzPh6Jg O9TLElafMuwEehPEL5w9QyL a87O40w IHdpZHRoPSIxNSUiIHZhbGl yig2thM7pGt6+MGMcfNH4xS C0vJ2jVeRjYyK8EMiiY420O nRvcCIv Cjlyx5kuw5cpjRa2RjAjDTQ rhvAtqWtfQWY4p9EhGq05J6 AcgGuno8ZnViu8ia59iWPxj 1Q6gGZ4 T4MyDLRuarfzsRIuxXapMZ4 rYPFhcnnoRYAlpR3bOYXwO9 x6WqPgScQ5CLosQ4MgjuG5N DEwcHQg XJvkPIU1X37jc0B4XBNkPMP sOWP0bWZ3aY0jmSaoknmomE VmdDsgdmVydGljYWwtYWxpZ 246IHRv bZpiAPThfV0fHHArtBLhkKa dYG9gPDZnkwggLoWMWI2XD2 vKKtczL4LUJN9iTYzckVL+P HRkIHN0 xByiZXjnIYShtT4uYZGzB8i 8PcInLeS0UKecQ6CmYOFbev pcQv23sW6xBuRkJoP6QLnyU 3PfmrA0 RBEivYAvNEtpQYP0P35gu3E 5GRUaMMHyHJI1bQI5aK1wnM lnbjogbGVmdDsgdmVydGljY WwtYWxp X913NVVjxUqyCiM3WjLhYrV 2MAK0O7LkTap5ZDZyiXukNO 5hrYIxFVxwTt0asZwsqVenS X5lXJXb zuwqEAEgoB1sIUDhoWHeeVy zNW8wXOQlppcce821IwJaNM Z8EGLbpTDaU2JwqD7iEzLnU DAwMDAw H7UbrSDrEQjvD168MVhxOuN 4XZZfjjEjA3HrCRKprAtlCb D9t0U1Fc24EmLOGIRologhs GQ+PHRk SNW4iWtnUMqiKUHaxZ2lVIL tV4l3ZtHwChQ7TAodE4KsDG IxftdgRd11rJ9pXcYtGxO1N VexJ2Rg fqS8UZTcpRHmOPzvBGA8D11 oj6B0XPDyODSsPQI4hDQ1aN 1hbGlnbjogbGVmdDsgdmVyd GljYWwt QAqgU566BJQnkMmfPxTkkHD sZTwvdGQ+HVTvCZT6iErwDE ubPANvmI0uMGMmB6z1HoMgJ tY8AWht W9FjRGVocmodTa23eY6yIgF qTaI6BHvuX1XpooP9DKCfqO PqCAmnLBX8R03uh6A1FAZuL DAwMDA7 bQV9pF6shQkkucwjrJIfgIw flaUbaIfxUGjqMArfN831PM KviWybXm36vGRfmXoaqjF2M 3RkPjwv dHI+MR12NAOqZX96aIKxvES hv2mkgSa6RvNgYXEtGKH5kU kdHSzlc5PkBMKyF17qbRJyn 1T6AHNu bPfbmTBjKaYcyZX4yA9vHQi jteaxx0dffdabJoahc3htip 20xV28A14gKVicEVTpLTZjP CUiIHZh jAcnce7aaJ5bMq6+PGNvbCB 8cSY9pY4lLnCuTqL2KXtmF3 91GeKhdRNuThnin7ibh9dgh Ax5GhVa LMYcocEmkSzyTZA6k4BzHh6 6Z94uANduLSMdREXvVHBaFR UseKpszn5lyF6mUf9+PC9jb 4rlfk33 oB91pUG+YJQeVSB0gVtzVSw hYHAgpD5yDFdgEfH6QZNqOw BtsC64nRFbFXfdCv0wxSlcu OyjQV7h WIUpsskcn994CxNcy3qdJPY ugBGzECywTVF6R48yu9Q2IP HtOUNdEBI9vVY0jA9trYldm jogbGVm jKwxjjEvpCgyHHctPXftX54 8QWJpkFvkWtOqsJZiS2dpcr PIZK5xMhvzaVZ+THVnEUB6f WxlPSdw NJUzmC5lADNrV9a2YiXyGiU 7USkbJ4HhnuE1VBAbfAGtJO QkpDIEeW6xvoxxe8enzqcqC zAwMDAw HGf5JDt4UGSmkFobGjEzCXR 1FzI0EPP3iACihF0bbBvnwl bjnZ8iFqg+RklOOjwvdGQ+P HRkIHN0 hQjhGZypENYriY7yYSEnD1g 6HqThRsT8NRbtE1XekiS1ZE DyrSVlIDFgnVJTjR9upbphr 2xvcjog UiLkQBVoBIt8OOk4IVKzaJx qOcTcTDV8JnA6UHE1sKBusT 3rnSwlvnydkO3qIqy+TVJOO jwvdGQ+ LCPrIRH1lDhzKIzpRPFheU3 kICObF9o6IqRkGsC4PFqvB6 HfzaA8OIItqFRlAMIdyPSOn K6pwheb v6gkmutmVyHxZNTzYRk6PKq 3NOGrhFkxZzAqWRK9GdA6UZ M4xNErpR0dyVoabutrnH9jL yc+UGF5 QNL1QL26RM73N6IpHftbrMW ibGU+PHRhYmxlIHdpZHRoPS alGSDfHoTvhCtwYF5wHy9lI GVyLWNv bGxh (more content not included)... Normal [facility] Consent for Procedure/Surger yon 05-06-2022 Consent for Procedure/Surgery [id number] D:127 Normal [facility] Ambulatory Visit Summaryon 0 05-05-2022 Ambulatory [...] Lab Collect, Change in bowel habits Normal [facility] Auto Diffon 05-05-2022 Basophils/100 WBC (Bld) 0.6 % Normal 0.0-2.0 [facility] Comment on above: Order Comment: Order Added by Discern Expert. Performed By: #### 1 [id number] #### [facility] [address] [place] [address] Basophils/Leukocyte s Auto (Bld) [Pure # fraction] 0.0 E9/L Normal 0.0-0.2 [facility] Comment on above: Order Comment: Order Added by Discern Expert. Performed By: #### 1 [id number] #### [facility] [address] [place] [address] Eosinophils/100 WBC (Bld) 1.6 % Normal 0.0-8.0 [facility] Comment on above: Order Comment: Order Added by Discern Expert. Performed By: #### 1 [id number] #### [facility] [address] [place] [address] Eosinophils/Leukocy bev Auto (Bld) [Pure # fraction] 0.1 E9/L Normal 0.0-0.5 [facility] Comment on above: Order Comment: Order Added by Discern Expert. Performed By: #### 1 [id number] #### [facility] [address] [place] [address] Lymphocytes/100 WBC (Bld) 15.4 % Normal 14.0-50.0 [facility] Comment on above: Order Comment: Order Added by Discern Expert. Performed By: #### 1 [id number] #### [facility] [address] [place] [address] Lymphocytes/Leukocy bev Auto (Bld) [Pure # fraction] 1.3 E9/L Normal 1.0-4.0 [facility] Comment on above: Order Comment: Order Added by Discern Expert. Performed By: #### 1 [id number] #### [facility] [address] [place] [address] Monocytes/100 WBC (Bld) 5.9 % Normal 4.0-14.0 [facility] Comment on above: Order Comment: Order Added by Discern Expert. Performed By: #### 1 [id number] #### [facility] [address] [place] [address] Monocytes/Leukocyte s Auto (Bld) [Pure # fraction] 0.5 E9/L Normal 0.2-1.0 [facility] Comment on above: Order Comment: Order Added by Discern Expert. Performed By: #### 1 [id number], [id number], [id number], [id number] #### [facility] [address] [place] [address] Neutrophils/100 WBC (Bld) 76.5 % High 36.0-75.0 [facility] Comment on above: Order Comment: Order Added by Discern Expert. Performed By: #### 1 [id number], 9100104, 2279987, 9271098 #### [facility] [address] [place] [address] Neutrophils/Leukocy bev Auto (Bld) [Pure # fraction] 6.4 E9/L Normal 2.0-7.5 [facility] Comment on above: Order Comment: Order Added by Discern Expert. Performed By: #### 1 [id number], 8072040, 9185954, 4443642 #### [facility] [address] [place] [address] CBC w/ Auto Diffon 3 Erythrocyte distribution width (RBC) [Ratio] 14.1 % Normal 10.9-14.2 [facility] Comment on above: Performed By: #### 1 [id number], 5179435, 7792131, 8602452 #### [facility] [address] [place] [address] Hematocrit (Bld) [Volume fraction] 38.1 % Normal 34.0-46.0 [facility] Comment on above: Performed By: #### 1 0355420, 1004747, 5918419, 2307093 #### [facility] [address] [place] [address] Hemoglobin (Bld) [Mass/Vol] 12.5 g/dL Normal 12.0-16.0 [facility] Comment on above: Performed By: #### 1 8139901, 8443026, 7518088, 2297228 #### [facility] [address] [place] [address] MCH (RBC) [Entitic mass] 28.6 pg Normal 27.0-34.0 [facility] Comment on above: Performed By: #### 1 7129085, 0914401, 6849431, 4257519 #### [facility] [address] [place] [address] MCHC (RBC) [Mass/Vol] 32.9 g/dL Normal 31.4-36.0 [facility] Comment on above: Performed By: #### 1 4004488, 5338996, 2568957, 8976704 #### [facility] [address] [place] [address] MCV (RBC) [Entitic vol] 87.1 fL Normal 80.0-100.0 [facility] Comment on above: Performed By: #### 1 0999271, 4593256, 6469324, 5493801 #### [facility] [address] [place] [address] Platelet mean volume (Bld) [Entitic vol] 11.0 fL High 6.4-10.8 [facility] Comment on above: Performed By: #### 1 4216818, 3414121, 6585800, 4172391 #### [facility] [address] [place] [address] Platelets (Bld) [#/Vol] 202.0 E9/L Normal 150.0-500.0 [facility] Comment on above: Performed By: #### 1 2173866, 0075550, 1518228, 4846221 #### [facility] [address] [place], [place] [address] RBC (Bld) [#/Vol] 4.4 E12/L Normal 4.3-5.9 [facility] Comment on above: Performed By: #### 1 6145832, 5353826, 4611809, 0429371 #### [facility] [address] [place] [address] WBC corrected for nucl RBC Auto (Bld) [#/Vol] 8.3 E9/L Normal 4.0-11.0 [facility] Comment on above: Performed By: #### 1 0306117, 1898047, 1170951, 3743481 #### [facility] [address] [place], [place] [address] CMPon 05-05-2022 Albumin [Mass/Vol] 3.6 g/dL Normal 3.3-5.0 [facility] Comment on above: Performed By: #### 1 0091225, 1009843, 7989440, 0670335 #### [facility] [address] [place], [place] [address] Albumin/Globulin (S) [Mass conc ratio] 1.0 Low 1.1-2.2 [facility] Comment on above: Performed By: #### 1 4153705, 4893848, 3379205, 7868907 #### [facility] [address] [place] [address] ALP [Catalytic activity/Vol] 93 Int._Unit/L Normal 21-98 [facility] Comment on above: Performed By: #### 1 1826936, 8743524, 6585828, 9792027 #### [facility] [address] [place] [address] ALT No additional P-5'-P [Catalytic activity/Vol] 27 Int._Unit/L Normal 6-46 [facility] Comment on above: Performed By: #### 1 9300596, 0965105, 4670738, 4273010 #### [facility] [address] [place] [address] Anion gap [Moles/Vol] 15 mmol/L Normal 6-16 [facility] Comment on above: Performed By: #### 1 7015423, 3899577, 7173991, 4320042 #### [facility] [address] [place] [address] AST [Catalytic activity/Vol] 29 Int._Unit/L Normal 5-43 [facility] Comment on above: Performed By: #### 1 5054280, 0189459, 6570879, 4713235 #### [facility] [address] [place] [address] Bilirubin [Mass/Vol] 0.8 mg/dL Normal 0.0-1.1 [facility] Comment on above: Performed By: #### 1 1152052, 5245762, 1087445, 7383353 #### [facility] [address] [place] [address] Calcium [Mass/Vol] 8.6 mg/dL Low 8.9-11.1 [facility] Comment on above: Performed By: #### 1 1916244, 7275076, 6990708, 5835188 #### [facility] [address] [place] [address] Chloride [Moles/Vol] 100 mmol/L Low 101-111 [facility] Comment on above: Performed By: #### 1 7245245, 6484314, 9230955, 0291990 #### [facility] [address] [place] [address] CO2 [Moles/Vol] 26 mmol/L Normal 21-31 [facility] Comment on above: Performed By: #### 1 4290897, 1406237, 9788808, 7700575 #### [facility] [address] [place] [address] Creatinine [Mass/Vol] 1.2 mg/dL Normal 0.5-1.3 [facility] Comment on above: Performed By: #### 1 3775768, 0494259, 5995391, 7266765 #### [facility] [address] [place] [address] Globulin (S) [Mass/Vol] 3.7 g/dL Normal 1.4-4.0 [facility] Comment on above: Performed By: #### 1 9257393, 2726656, 7985236, 8940912 #### [facility] [address] [place] [address] Glucose [Mass/Vol] 303 mg/dL High 55-199 [facility] Comment on above: Result Comment: If t his glucose result represents a fasting glucose, interpretation should refer to the following reference range: 55-99 mg/dL Performed By: #### 1 1733453, 9063350, 7323076, 1710629 #### [facility] [address] [place] [address] Potassium [Moles/Vol] 3.8 mmol/L Normal 3.5-5.3 [facility] Comment on above: Performed By: #### 1 3550252, 6053007, 1208715, 5583165 #### [facility] [address] [place] [address] Protein [Mass/Vol] 7.3 g/dL Normal 6.0-7.8 [facility] Comment on above: Performed By: #### 1 1450857, 7323890, 7416228, 0672215 #### [facility] [address] [place] [address] Sodium [Moles/Vol] 137 mmol/L Normal 135-145 [facility] Comment on above: Performed By: #### 1 8186437, 6675738, 6630306, 1797424 #### [facility] [address] [place] [address] Urea nitrogen [Mass/Vol] 28 mg/dL High 5-21 [facility] Comment on above: Performed By: #### 1 1051735, 7853408, 4558407, 5361391 #### [facility] [address] [place] [address] Urea nitrogen/Creatinine [Mass ratio] 23 No Units High 10-20 [facility] Comment on above: Performed By: #### 1 2125331, 3307265, 8745255, 2728144 #### [facility] [address] [place] [address] Consent for Treatmenton 04-17 Consent for Treatment [id number] D:127 Normal [facility] Office/Clin ic Noteon 05-05-2022 Gastroenterology [...] left leg with Dr. Barney, Vascular at [facility] 04/07/22. During today's visit, patient reports over [...] Refill(s) 0, Prior to colonoscopy., [id number], 165, cm, 05/05/22 13:40:00 EST, Height/Length Dosing, 95.2, kg, 05/05/22 13:40:00 EST, Weight Dosing Follow-up With When Contact Information Linda Solorio CNP Within 1 to 2 weeks Additional Instructions: Following colonoscopy. Patient Education Colonoscopy, Adult Problem List/Past Medical History Ongoing Bile salt-induced diarrhea BRBPR (bright red blood per rectum) CAD in [place] artery Change in bowel habits Chronic renal [...] 3 chroni (more content not included)... Normal [facility] Comment on above: Result Comment: Elec [...] including vitamins, herbs, eye drops, creams, and fhaj-axw-mywspyc medicines. ? Any problems you or family [...] air t (more content not included)... Normal [facility] eGFRon 05-05-2022 GFR/1.73 sq M.predicted among blacks MDRD (S/P/Bld) [Vol rate/Area] 54 mL/min/1.73 m2 Low >=59 [facility] Comment on above: Order Comment: Order added by Discern Expert. Result Comment: eGFR is race adjusted. AA=. Performed By: #### 1 [id number], 9124916, 6417852, 3329141 #### [facility] [address] [place] [address] GFR/1.73 sq M.predicted among non-blacks MDRD (S/P/Bld) [Vol rate/Area] 44 mL/min/1.73 m2 Low >=59 [facility] Comment on above: Order Comment: Order added by Discern Expert. Result Comment: Labeler jin kidney disease could be indicated at eGFR's of less than 60 mL/min/1.73m2. Kidney failure is indicated at less than 15 mL/min/1.73m2. Performed By: #### 1 [id number], 4866332, 1893821, 7513466 #### [facility] [address] [place] [address] [facility] Rehab[facility] 04-15-2022 [facility] Re[facility] Please click on link to see report pdfCD:[id number] FGXzSzq1AGVnUqAC8lbpf1K NziBZRzHEFmJWUlKEFCLf8T V7jivgrwOKBdLbZuPLQe GNYgUDjgtdFyj0PcpSX1IYi iSw8DwxPnnF3nNErTR342oS JnicBvG67uwP2wABVvq49yS g6WotVg iOujgaKatXMiUXO1NnYoEhF xMzExNDUyNDEtMDUnMDAnKQ o+AipikvEuKorVWCNuYO0jp qi0WYut OTzsCURbRf8nnXSrq7YtbGH 3w3FMC1CappHLHZ1nRY5Cht mxwV0IVu5ZeSGxteBiFlbmW m2qjZVN v3csSd64DeKfQSMlPTJiTKO iRUFvPFOmGb9XvFTkkQ8qE4 tdsUeaLke9Mp6QtEUhBMP3V JrhC6Bj cABvWebJY2w4ZEopD9PvK5q kEJPFZ1FmxQrlwAazmRK7EN XLA8yGTFwljQKaXQI3Xx7Zv 2NlbnQg RJR1Wp2BUURoGH40DT3oNDC LX0byTFZzieivLIUkSm4KPY dPcMQ2rOCpZLFoJu5QmonPi EJ3tMR6 ETHVLx9VML0pb5RrQeLpIEG nHdrMFHcKA0X7gBSaJ1Nlrv JUB7Y4NmK8qSHfF1NjqQYPr GUpFf0J TSWbLw6diXOqUIHbJChWCEy cWbrqb3PXaQZaYOPnQt8BPZ Q9R5myntGrWlAFW2BzY79uf Q4eNL0R zI6TvyNwXP0oh3LenlbGW0P xjsOLMTLllzzaaZ2uQNFkTY AIWj7TrGA4eVXoJaXgFwvgK CAwIDAg MCAwIDAgMCAzMzMgMzMzIDA mYFWaAprfTzQyWbF6KMBwGy ymNVJ0ORO4ExA5POSpJTH1E DG5WsR9 WLBpJTR4CTZmMLY6ZWI8ZxV yNzggMCAwIDAKMCAwIDAgNj B0XGB2WgD0JvIyInIlKUR9P dV8ILKo QRW9AmCcAik5PBUzGjP8IIX 1SaM6IzIDDvAbNYv8JET4Vm llFDA2CfWeXsG0KROlJHX0U jIgMCA5 RNSkEDS2NngqKVLvSZNfTNa oIGQjAMV3PDDvMLK9WCMaQI P6MZAzZEJ0LOI9TGT2LXUlI BJ0QKPl JtSuYkRbCYXuOICiCwJ1IzL ADNT3FCP3UlT3OEUuKLB1CW JpQuQ1YXQzZlu6FXX1JmB8N DAgNzIy ADNuXTV8SNUiCk0VHU9rc1B iSeepWRUxIfqXNRgCM9S3rY GkE2IyzqRUGPBvpxwttR8jT u6Qz214 MgSfHLNpIPFgVGliVn2tKOq 1TEppW73MJk0SnHMgwwDoJr dyVm7jdXZWy4rsTy83PnAyN MR1EcJi PvgoKBYzIMhbVi2WuUCokO0 tW5fzyBsmBnq6Pv5AbZOcLS M1HBeqC2ZvjTPcDvfUA9f1F VzwX6Bv W6xuSA0fTnzcK3EeODAgD9r 4IByfBoljLDsyiRckyTQ5CM rBH6YeA6DygQL4ZXUST3Rgu 2NlbnQg LTIxMgovTGVhZGluZyAxNTA LU01kfXyiFKQbREIrNoPMP0 T1E6frCOJgHKD8JIx+Pgplb mRvYmoK WAUzZC6rcsu6OSdoHZrjZNF dKs2asVgvD7FahNesFDDaAQ X1XDH0oMZON2Fjk1QRa125P A3Essdh gA5Sl8gsEAKmoZtbGLEWK4D byfM7Z5txeaPkNxeuIKWzwI LuKIXxZOR1Rc1LshZeJDczO nGkG8bn AO7sjBRoF51bkA0vWi7Me11 1DWDpY2PupLTpvvQ3PZAxGl jtN3dvrJdxMAzyUoz5GSSmY CAwIDAg MCAwIDAgMCAwIDAgMCAwIDA KMCAwIDAgMCAwIDAgMCAwID AgMCAwIDAgMCAwIDAgMAowI DAgMCA3 MjIgMCAwIDcyMiAwIDAgMCA wIDAgMCAwIDAgMAowIDAgNj T7SFVlRANdMCCfCTVxSSUsI CAwIDAg MCAwIDAKMCAwIDAgMCAwIDA fZNW4OBFbNXXxBIFmCOIqUA MgWXC1RAaBDaKeCHNiYVRkV DAgNTU2 IDMzM10+PgplbmRvYmoKOSA xQD9wgsl0XCqpAXnlVPWiAh 5tmXSmg1MmbTD5z1ZRS2Sfv qHHHC4t LL2XnfhjtG5Re1znUYJOL8L iCZukIYXmOq8Au180RkJbcY XsJEDnEGMvPaj4PUCzQZRjN OO2Yf8J G22gm0GqjgyDwZX8kKPpIfb AX5N7LQ7LOMq6Vt5IoDTzNk A5UQqrPMWupWlePR1yjEWbY QblN3Ol QZKaF7q1RLplFkdqJAqevFm smJJ2KZoMP8AsC5VwvFD0BG USB0Fxw1FjfkHjNCDgIgikB GVhZGlu UsPtOBWPH90sjSzoPDBgKRH bZCRZK0Z9R6yvOHVmZSH7HC o+PgplbmRvYmoKMTAgMCBvY moKPDwK E5P4hUTtE0ImgtYKP0U1FgE 6rZFuO1PkhZGLjBCxQm2XJV KePq9azNMbJQPwZPevLb7yI R3DHt2T cZWdcAGjAIIsUqSDP5ghu5C LlXZfIMLdYGotAT5do1Gvdx zdQ2yaahBya1zKvhJsENjkO bqoCh0s pDDxm5DhiEK7q9EpQFRwYHZ TS8dwTCTkxdDnVQE5ULCsNT QkVUL7YYXlNEMvSJHpTpRfL DMzMyAw CEZxVxa6ZYGHLed6TSL0JJJ iYWM2PeM0IPLkHKG0RYD1Zc W0WMLoEEInUXSsXCJwJjIzI CAwIDAK LKJ9TDDrGJF1PsKxZvRuACk vPdH7LoLcXtY1YIYmZIH6Br tiJnCpHEK8VCC7ZYRgAIM3Z TEgODMz TtwaZlG7KbvqJoP4LPf9EXV 4KfVnMoU1DJOhTGPuEJHkPQ J4DZItLQOlAWHbVLUkSjIsC CAwIDU1 BpK4WJZiDUF1PVPnEBQ2ISJ aLiSkVBLxKKN3PYKyGgx1YQ YoRRO9NQP5HAQ0IJbGQrZiT DYxMSA2 ZAPuHHTdGKstMLD0MQLxGbV 7RMBhJSO7GHq3VHJ5XZYmOA U2XT4+LzJvVF0isbxoBKKsO A6zvbq5 WNabQPIlO7HaNHA2EXM7Wg7 BIF2pdNshDbh8KptxWozgzX VyIFsvRmxhdGVEZWNvZGVdC j4+CnN0 ohJveRv32iNKwYGR7SQ/976 P+2hMcN49vQQ4kbWJ7FXZCn GGQZOpt5zKgDqstfqaob3EO iQCUhDK lIPZa8LPPfa2BpBJYJr+Jag WJTzQsAb8lIU5k9ErQ0YuWZ KLZHBYV7Qy989cBQkJ/+hM7 Tv57e/e o39809cd33hMDIPYH9YSDIr t3vG7HrqXJ2VjMZFplIskYl vevDLDBLAVAchLHmhav/Q3v 5l5YKSy QxHM3HlLB518c4QsRG+J90x tERK5ki2DNPRppjn8evixcc etKggQh/vC3YkKqCBAwuGZZ Ihdg/ef QNDaxfu9F3N0cdx326qZdk5 RpsJL37o9W7IMnR7u05GwEi uFDA4xm5Dm+4cPyVo4FDL68 4U4+gnU 4clOzJeIC5GFGwCb+EAewsR KVGnj8RHydMV2sdRRG23yd4 GQSmW3ZTWN2mo4BmHpbOV4P NBG6ACm Pp4OtyYoR5s8XJ1RX0hSISs Limvz0Ncy2df3CfBDPXXf6A nQ0UOkJ8rmt9YrIiqQl2B4G sy1jUJJ OqJYki0RVY0mCZpfy+BD+Ct LQITmUQ1ySmchdOLnOxvJgf Cj92leLC9kBAJhZUIqd4iZz USnYtSV lLfrtZK1LTUaUlVNeGpjWUN TPNZxORJxtCock2ZgodeSHu 8LJuRfYml7eAujfNQnR5I0N /pRrtBs FtW6lrR9DKTb8PuTjeVJSs2 6n+3RVIytgAppoEMGTMGqfL hGNeZcDw/Mp5GqJGwOazvz5 INO2A+H SNNg0Wz2MBrPK+AadicWhde VTwrJApQgyiqyiWzFfrTeJD hFV7EiqVU84fka33OmMjeNP i+y3EKf psfp2/Qd+jG9SD+cG9kr6eI qPj38CnnxYORczh0Tj+ROeb /0ybfKVxPC7qT8qvlzu3clx LHfF985 bqvFZfhhuOXzHK9NWYrIVSS d8vUgU7QJwE7sf2Gbh9jI+u AzXgfKwGAlXAqJl/jJfJQgW UhCZAVZ TdYNV/NecY1yCqofiaoPNnU nyR/MO4wccolbEa9y1lR2ji hcuoAup0/Sp+rc0MR8ip62E B3RMsLz R0YzQVQUAY5qSwPdl+RHmSc cxjEHM3Nz4cU9HzeLjMgF06 FJ3tqbvJa2KettgBv0fdoIx qFMVaaj NCoPKZuUVmUvnuh+pV+Ntro WapqcN5Td0z99J/2Hnj7KQD UoujOLRKCxYVHqo15mx+xT7 aeqbl5Z sBT3W36EDHytlob2KMoko2A 71BxII+giFPjdehMQad60Pd 0vnBruH0+OzSXjcad+D9ckG 2ZBP9QD fBaxoHkbby1HQ6K7gCt5ZAm detLmR5xHHiHpZhcqVYvtLK /x53AKyx8F5JbH3JDfs6CUR pJZSis5 KYidS36LCJIqiQO2L3qdEuy MQLprziI2lHJXciPN0RD0pm lYWjOVtTfwnGpOZtId1vJL1 PH9eXCF dntVW0WyqQrPaCWNQAa2YQe 4aPVl56xdnJXebSruUENNIo 0b6AIgY8WzCQPxcY0U2bvkQ 1QmaLag EkEeQcWCigQVClIFyYIkQcR zD/HDcXNF5aE+i2bP8VmnJa XXoH0JDmMppXxEtRu3xW4VE dUVKL7u qUWoCRB3N4EWPj5TRkoaTPD 2XZiJaRY3t9LNFWyIOokEFv 8H+UPE+4g+xTwVj1ourPjVs xHdiJcQ uCcwKvDl1ahtE13Ecgz6LsI SP05u74P5Cqr9A6ygfuskAI tS1t7A (more content not included)... Normal [facility] Please click on link to see report pdfCD:[id number] TUMjLvp1JJFbDdZP2lqxy4Y NlpHSDjOWBfTCBvLYMGKq3T K8nlkbvvMNYrMzFhYZJm TTYiPIlyktOxx3BzfLX2ILn gIu2WxcSuuD5nPMsLQ571rW DrjxCiV47bfT9ySMRvt58sW d8ZfhKq yKhfjnPqvOGvIBR1WmYuGdQ xMzExNDUxMzQtMDUnMDAnKQ o+EejdfnVwBgsQZIMgYC4dy pp4LVcv CTrsHGLlSd5rvCCkw4CwkUQ 9z3XGC6LglxXUJV6xJV5Gdk zzmY1Se9vbKCBszLndXJSGF 0ZsYWdz OZPfKb1Sh549EqClwPXmXHN 3IWVvNui2KJOtGNJfNAReWY 2VB52mx1UvryvCvNM4mXPbQ wtGL5T5 MH5ETMq3Mf0TuUJlCxM3REv cBOGmrCuvLK1xdEDwMFFrFp 1MQGMJPIuluPIxFxH9Mc4XZ EMeG1k6 DGZjWVwkXMMsOJ48UNhgSXi oSWCbL3FieEXbMxWkIp6QRZ GvcT2jHNF2EMtgKOY0V7wdk GggMTMz YiwxYVFcI6scmUswWWi8Ts3 +IoLiYN6frqb5JBVig5NmPh p9Yg0YxHCcSL4Rm588Lb7Os KK8yBLx DS2HgaQvEOwiLGbpYmTfDYD vjhGiH3XmeIMiACBahTQCwP KktEXGTGieZpmkz0CHrQZtD KZoKw3Q YOK1S6rvhbIxQnDUK5JhM60 vmO8mKV8SqK1NzlAfNY4rb1 HtbavUJ9SkzdFZIKFesuzbc T0rRATb WYBXNj3ZaHA6gZSnRiPfPls gMCAwIDAgMCAwIDAgMCAwID AgMCAwIDAgMAowIDAgMCAwI DAgMCAw IDAgMCAwIDAgMCAwIDAgMCA wCjAgMCAwIDcyMiAwIDcyMi H3LuAlMTF9QQMkDWP6XwHkL md4JMGj JMCrDMudIjn4ZnIxWra0OLR 5GgVpINtzTfV3YliqMURfML AgMCAwIDAgMCAwIDAgMAowI DAgMCA1 YPLxFdUlPCO1JgG7TLNtFAK 6IWJfSpW0TRYkPjAmREJ5IN RbMRJ4DsIpEvafYCj7FhArX XA1ZLLy FwNxJCUkMzk3HKJ1MxKgWiT eEaPcYFU1PtPsTDJgTVI3XT 4+ClEcLK2umpk4ZRKse6UkG yk6Bd8Q yKLcRP5Zz993KZYrL2IkpLR qcuaePe4ztE7wbPFhN8NhhN NsOEMkqXUUYSknWmtuW8SxM oPTW4Vm zrDMPy94TRbaIhO3UM3fTkR xFzLpMQAqXBO7FFhfBBknd1 lzM0crQYJbVHI5CFtdX1Ddr UggNzgK S3G2EE3IFJg5Gr3CzPXykLJ OedxyDPOsEr7IYBELFVjppW QxMqV6Ua7XAQUjN8j6XFJdL QovQXNj JW81UAhsKDghOHTlS8NrsOK mUjTqAr6LAVYytY9eSUV4IF yjDND2G3rmnLevZmVxOXfeT IYxQ3nm vHzbLFg2Ee3+FkXiCP3fjgw 3NTOof2WiPvq0Fo7OhYZhFZ 6Ra130Jt5CnYX8uTFnFY4Ef nVlVHlw HEteKgGkFEMsmzMbC0NtxZK vXRIuiGKMIWvpWahzb8UNdC YqEVUoPr9BQYE1A7tzljBrJ zMGN4Bu C79itL3mBV8ThJ4DtlZtCB1 hm9FptayLD4IkoiJSKMWwat vxtC9wYJcjVULDQf8PxYF9v HMgWyAy VuifDDRqJIT9FvCkKJj2NTY pAAEvXmYpEQDeAcStDJF0LL RnDwhqEeKrKgS1BBWzLykwF RQ1YWK6 VrY0BNWoKQK6FYR3VyT5JON ySOO4FMHdKKZfBHZpGsGsKW HwAIh5NxJ5WDN7YYYyJNU6Y jIgNzIy GSjnMzS5MzUsYgR9ANZiYGL 2NltuXnDsQFK1ZJC0QTCfZp SoMYJrOFI9KbWZIlHtCPv6E PT2Vorc BCL2JyXgViD5PHYbPEN9DgB vSmE7UZn8ZPOqWGZ2IyDoBX RbKJAqEhFoEZJzPZI7DyM0X TEgNTU2 NYYsDXY7FDNiXhLoHRTpHAH 2FQZjRdz1RDJ2ESQ2QVIhAr z5KJv0ZRj8RSRkXdStLVTtZ UP5JDBc Tuh3QDX3NjXzFyLzPrOgOON 9BoL7WzwzHOQ9LCA2VmT7UV WoSt5MYO1ij9HyMlywKPVbX moKPDwK B4P1rBBeW3NtxtSJMIOrsbb xhH7xSg5Bi860TsDnLMXdPY VbGNiZEQcpXckrS5OnQcUUM 0ZvbnRC Rl62RIpzYlW9FR5bGuLrMsW tLNTaOTMqVMsfUCwsv4lqN8 vhDPIhERI9POnlM1YykCexV qrIY1L7 KK2JRMy7Re5QlSAtdPBCcgy xAIKiQk2JJMMIPHhvvZNgXt L7Um6HGXApO8x8FUGsDRrxZ XNjZW50 ULlqCGhfWSVpX1DuyZXkZaL uVi3MQKTszL6qSIX3KTphWW D8R3lotYfkCcPeMZuiEEVcQ 2lkdGgg NDQxCj4+SyZdIU5pxzgyBLY jWD5soqa9HGrrGPsiLFBxGg 8caJblK7EerZgqBINoQSV0J VC0mXCB N8Yag4GMg518XD9FzffrzF2 QFh6RlZCthRCzWEPfVuUTB4 sca2FNmNPwTJRlASwiWO4ig 2Rpbmcg D9iaagWdx2bPapSrYFtyZfm pFg2xcNXrt8StyDS0v4VgCV OaBPLDZ5bsQBEixeRoPUE6W CAwIDAg MCAwIDAgMCAwIDMzMyAzMzM rOGQ5WQRuKERxLdSfKiv3US L5FfG2MNSmJVB0CLZ8ZuE6E TYgNTU2 MJG0IrU9RAVyRYA9CWB6LhT hCHFtQBTgAhGnXGJpJKZ3Av Z3XsgbZNA5RtZxIkL2CKFmH XT4Joqw PdBeKUW5BNUzSDRmWKD7IFm sXte5BcHxCji4BWQ9DnVlGR iaSkK9CingWuGfXWKlVLZ8A DQgMCA2 NjcgMCAwIDAgMAowIDAgMCA 5SMHzIBK9RHFePFK4TYRsNS D6VOW7DSW2TGLkQAB2ZRUjE iAwIDUw XMVsQdEeKMEnCxC7PwU4JFA oAUT4KOOtXmTbDAEaQHHaJs nvTMY1GBHpXJV8ZtZuQOEiO DUwMF0+ PgplbmRvYmoKMTEgMCBvYmo WJDiAH4bmtvn3dNKtAIEhIh ydNPRwK2GcHNR3VfMHK9Qwr HRlciBb J7OvIWFsFYXnn8RoINh+Pgp jcMXaWM6UzEhACG7bMHENG/ e+j/m4w7DUt8zDtikgMgjFK AIkgRiW LJeWK21TB1OYEJgkGGScCiZ QyoQCgpvQxhJstQIBRQGJvi VmVAGyXwEJvwQ9rJATJv0vE CxxximU SgjYi64HHbZrKf/oTO07+e3 v3nPOO/ecc+/piwPEUIp2cH R63do1+ks5hw+y5znGQn3r9 cCp4jby zzGuGOYOZk4jZr/0N7/YuBg z5jzA0jSVBKS/ec+F6Tg/if iKe9MElCG5KqIbBn5WCm9Dc 64nrSoI PBv462YjnPX0VH0OJROFKVG 2c85Yi58NsafOptB89JukJ3 7hd4epVhENYP/V0HzPW+OWY V3EHTMk 79j3ybv6mpcdaHXZJ3GPVVs K4JIk26t0xRKOIW91G/hAHs UWMCH3lnQOKnkf7YmxIU+98 YgqSS1s NEVQi/Eg3E9PXLs4TdDbhaz gbRZ/C1Gb3T8lUr9WU2yBsX g4fjrLzj5QM+h5yY6oLxhuk 9BnA+xC Wy+n93xr2S1ykowcALnv+YT 41xoFMi1+rneN1r5I29/gQ/ tzWXTDUMhMcg264HjvGcXtS M7uQRef DOcfOm3gHKsAEevVA0aVh4X SvTXF3wPhLA3W4IEpN86N81 sVTiZI8LKZREY72jcyYn0hE u6YPlZp f9PFWDnQBvfCqMKjVKZ4Mh3 IfCuFm01djfUQe+VLynLlAE qfOp/h6LFVmKBRcgOSTzwRm ow6TgLr DM9CnrEGfHGEaV35XecRXje PhyECJ+CteR52CaigDhNlKn KLnN4OrDIODSxhohpdrU330 wU7qHHe m5zA/M2q59G0zEbKS0Wvjcd Xg3dY5ts0YnoemZz/o19IIN mzXFPhwVw0WF0P5gKkyxfiS nm//JH8 kUIU0+vGnOlt6bv4mrCmS3w EpiLu0U27ej0knDNxHPmXRD hXgqDaBEkvN1CaFLyvYNnME HigV24Z gsYkRDiJfAn8bDmMBQsBFaI PSR0VVPm7OKniVYMAlWc8CI 6u98xesQ/W63CzoayYbh9b+ qroXLqA ZyiT5xrnZ/OWZMHx6GL1iQ6 Kavitha/Rs3lxcOXtARhjNX/kR5 rqOTIJVWdxImd9gU8np80Cp u+Si+X5 8n1Y+6u3abrUk1AfarSxTLG ywxUhOcvhaFVwP40diyOfco u4Yg4yuTKH2re+zZf0SZ7Dd jckP3Rz kN9cy6fRD6lOqMzwG+2obZZ rxH0HWWeSxVV11mdo3dM58D /Q+3BrNJSm5NZ9GYCgb85uT RrNmmzL tHnAkl7v95Ebvo/XJBtUymd hgbQImpRaKYpdhkNktbyZvC r59y82IVpANtftyB14gJMxB 0Q/6dPS EbaehdinmOkVaZfSyCaSWUo sQFNq4aQ5ryMX23rCpK4IVv KpyPq9HEoYnkCNc3cOcFTwj xhkz9zr tNEA2zA7loHoH+6gU+mTtsF FZJEzJH2f5JrzlPdTAoE8/V upqPxvDmT71WRpFerFIpxcM mO7NCgf gWDZHaY7oUX5awPPQgfHCdo 2oBJBHkHFgooEFQpSBcmCJE HEcw/tA2lnuB9sarj3V/Eq4 yTGr2pn kNACHbQYyR4ZaFn7rAcKFcA aJekA46PTvsuYEJYXCcce8E lBewV5 (more content not included)... [facility] Please click on link to see report pdfCD:[id number] JJDdKzt3QRGlNfGS0atrz1Z ZtfRWJuYCLkYIVyCKZNWa8V G6hygjgcCLNrHuJhEKQm HLOhEXyvmcBcj9KrrCZ8ONf dNu7TyrZheH5hSRbOY873eJ RmgtUmJ20guE8gXYAgg19lN t9NpuOe cImgieCibZHfCAC5ToWrDtH bOeEfLLT1AOLeAKFuUMQlLG o+PkypsgZlYwiOIWGhPB9ip ll4EDpm TPqxSUSeTn4wwDXkr6MtrIC 8r1TDI6MyjeCUNQ9qIM5Dfd mmyN9Yh2qvDIUhcUshYRERU 0ZsYWdz NLRjAm5Xb536JjKbrKBzJRL 4HQUpVfp5MXQaAFQiQGGpVI 1DS56qz5NucdgDmPJ8bPHlE efTP2S7 BL2ITBa1Vk5AwYXjAsP5EBz qOKXoeKqrAR4riXBzUCZwKd 7IQXVLSPezcKUeWmY9Ch7GC ICrN8q6 OKKfTEewSJFgMC86XGvxCKt wYUSzW3VcmCBlPyErEk2QEG KmxX2fJXC3UVrrKGI2I4dzr GggMTMz BydxVJFxP5eorWoqACt4Xi9 +JrTtKC9zzjf3XUIse9VsPp u6Dk2ExWSjSA7Pa465Gw7Do XH5uPGy QZ4BmzRaSArwAZmbOpVfGUS khiOhJ9HvcYPiQUIpiCJSuR ZhkDGEMUurUayzl4XYrXOzW RJhGs5P XCC3S5aqkuPsMhRNG8VfD92 eyK9qAJ8WiH7AcuJqVT0qw7 WctsrKZ6VkwnLCYJKopdibb B5xPJGw VHBGLz6DcGS3rBQdTbJtRnu gMCAwIDAgMCAwIDAgMCAwID AgMCAwIDAgMzMzCjAgMCAwI DAgMCAw IDAgMCAwIDAgMCAwIDAgMCA wIDAKMCAwIDAgMCAwIDAgMC AwIDAgMCAwIDAgMCAwIDYxM SAwCjcy UbWrLIH3ZoF6WdjfYRFqLSK gMCAwIDAgMCAwIDAgMCAwID SXXBUcVGKrUSH5HWAeQCE7J DAgNTU2 IDMzMyAwIDYxMSAyNzggMCA gSYJ8RIQxQmSeHPJ5DJPiWD TeFLS3QZJ0UOWzNwNySXNpG SAwIDAg FNZ4MKLvRn2NFC3go3ObUws bVLRvYfyHOXrLW4A8lOVnW0 VfmqGQRZCorxveaS5nVk1Aj 250TmFt GBMtCKYvWBrZJNxdZnktS9B dCbWFF8EyyxPMQf57POxyWk I9XT3eOuSkGxLqQYDuLERkW QovTWlz c6jhL0riSRDqNVY1ERobW8S cfHkkAmsWU6N6YL2UCVg1Bz 6VxLFvbYFSsxrfPUCqHd3SD XBIZWln yJOaZuZ0Jo9JVNRdH6j7DRY kWJbgHYKnBJ26RWlnVNseXA VpP5GojSRqFuZvWo8VOUCnq P1cOWO4 TVedVDR8V0ufaDozEtEjAYw rGULsF1furFvjHGSrKn5+Cm CxKM0adno2TDFpv4WdNqx6N t3JnDWy HW0Xt970As4NvCW2uRTmJN7 UcnVlVHlwZQovQmFzZUZvbn RkU2QyfOZwSNPLY3WvqcG7J 2hhciAz MgovTGFzdENoYXIgMTIxCi9 NsuMfSZypRcIfR8qkYR0uyY UfO19eeS6hNn7Mr704QINjD 3JpcHRv dcF6HQCiOaoeX2kosJgaXQi oGeg3EOKoANIaNQRrGPAyTT K0MKDsRPStJIXuVIQvIwKzB cH2PQJc LsnvGWO5YML6BlQ7GOHiVLC 4TRX8NaY1ZCXhUXR5FCW0Mo H7ZEQdBNL4IEO1NFFxJLCgF AowIDAg STN1JznaAFA4GjCiUuZiODF 3OhXqOSe9UPDoCDG3RQHuXA V3ZxTqKYjwJhi8CgEjQqs2J DQ6UaNu DSupFfB7OhynGzVpXRqqMfB dJIb6OXJaXYWcPCXpJWRwYR vkAFEsTXP0KQGgOPS5EEUmV WJ6ZUMu BJB5VWW2HTT1EBQyNCP4WKL yMiAwIDUwMCAyMjIgODMzCj E0DeI0DBUhLJQ8DLZrQvMwK DUwMCAy WnaxPLF6UJQfKNJ4NkDoMSB wIDUwMF0+PgplbmRvYmoKOS YnPJ9npso9HFefNUvgQFLrU q8kjDNu m4XehTV1a7MTW4SttlZZKR8 cJY3YjgtizJ8Pz8leUWUBK9 PrFZlcMICoEf0Xp519QqZwl CBbLTYy GYQtXlz2CTFlVBLbJNG0Aa6 TG92iu7TvvbvZyVG8gXKeYe aCV9I8TN5ZBGj7Yx0WqXTxW lE3OIcw FPBxuCbzRT1asNGrTPylI6O dFNQxT2l7DUgoDwciJRfovU osaCY3HYgMY6YgJ3YlnIJ8I UGXU0Ry t9XutvJzBFHaBkpnMOFnUSm gXsMyFBQGC39bjHuzCCPzCW VeVYTWG6H8C2grPHDnDRJ0X Qo+Pgpl bmRvYmoKMTAgMCBvYmoKPDw DC6D9mPGoZ3IenuNRM4A1Ek L4nZGmB7PnyNFRkHUmYn9LS MRqUf3r qXTfHLJxRAknCj4fNW1XNb2 FlLYpjORzXTEbBvGJH6gyg8 EOlUPfOETcUWgzGO4uy9Fup qbkU2eh hzAed6lGokNoQGdfEnhkGr5 rdLHqq1XjqGY3g3UbIGWpDT RJE9lgBWYekeTrZYW3HAHyD DAgNTU2 IDAgMCAwIDAgMzMzIDMzMyA eFTEkDOYfBiN2GAHdKQUnRZ AwIDAgMCAwIDAgMCAwIDAgM zMzIDAg ZZXuFkPyUCMzJVpxSjR8QmE wTlZxDDdjWhBuIWDyIZR8Op exYvEiDEE7BIIkWCFtZfOeY DgzMwo3 ZqOaRwo0FKC6TyP2MrtmZkO iNID7IsP1CNKsCyRiTPTeMF K9GLSlMyW9ILYwWIPeUAPOW CAwIDAg DZH5WHGmZOL2ENMdIPP7WKA eGhStQTUkYCI7TLRhEqb8NQ VkCOV8SYM3TQU3VIbFVhTyU DYxMSA2 OPZlHBCyTAyiUBA3NNGyKtY 4HXEfZQO1GMr9WEZ7FNBrWY U2XT4+CxSxXW7kswyrWNUtA J7zcfg4 HPzbQKkxEZNiXi2otQUkk2F vvRD4f1KRS5XmtfOCVU0jRO 5TfrzzqE5YvEWpjYNGVQfqN knaX3Qq OyGCZ6LogsVBJf17BAebXZZ 9SN4vAiHsMTA5TDO8OAkeWb 1TzEVdsP9eT3mupNxuXyh8O m9SfOVl TFY5WFroF1YoqBRzOlwRI1p 5RFrlQ4RvC4gsKO4jIhkbH3 PqFLVuH9f0JAupOsduEHcft WdodCA1 IZoEN0AdZ0YecQA6ZPOKI7R sv8KdziGyYWUgZywaMJHbSS leUlRdAXUWD32ozOgbYWYvY DEzMzMK I5H1Z8siJEOsOPC8VHn+Pgp lbmRvYmoKMTIgMCBvYmoKPD dQT7W9bFYxP6XpfvHSH4D6Y hZ0qVNo L4WexDSApXCfDy2WNQBcCc3 udCAvQXJpYWwtSXRhbGljTV SIL3TbstS3W2rownQpFyoiL GFzdENo VSRoINS4Vw8EeqClOLzjFwI nV2zhJQ3raSCjO17kkB4qWv 9Tm327KRMzS2RndJNynhAsO SAwIFIK E3gqOKZpxlUcMGM0COOnTDE gMCAwIDAgMCAwIDAgMCAwID AgMCAzMzMKMCAwIDAgMCAwI DAgMCAw WYDnLRNsGZO0WvRcZckePPK wIDAKMCAwIDAgMCAwIDAgMC QzSSKzFXY2IsOmKQHtQNWoP CAwCjAg ZZU0NehoTls3XGouPeE1Fjw fRCJbDJVoPIOzWHZ5NdAbVH NnNPSoJdOnIFLiYHT4DmFcP DUwMCAw MFL7YoNrOETyHJRdYDInALE wPwPfPZlcQOF9MmLbDABtIj JkZMNyYbj0KWZ5Ru3+Pgplb mRvYmoK EIHnXICdCuhGFNiTK0cfbmf 7lHOoLJAyCtceDVVyO4NlWH F5AwAEE0WszDAkjpTtF3IpD XRlRGVj x3VtENo+InmtsRPiHK5ZgGc ICG9kNJNYA/e+j/k1j2LGp1 wCecsjAdmEQAIkgRiWZHfJR 16MZ5YN KJsvDBIkAlIQyoQCgpvQxhJ stQIBRQGJviWoCWUqRcFMtb R8mLIARo8iAVpenotWWigAs 99NMkCn Tv/oTO07+b2b2iAYB/ecc+/ elnCOVUj6nBN19cf1+ks5hw +z4osCJr3n7uMj5niideMsQ UBTZj5q Wr/0N7/RpZzc3znY8kDJCPB /ec+F6Tg/hufLk3EReDB4Ys VmFy1JKf7Bi51rnZgQYVy18 9DtdYS0 MR9CPHVREEN2v38Ve92Wara HktT11UxtX08yu5lpEsTHWE /V0HzPW+IZLN7RRWRk60o7w xt4tvad kVDLG0FIXWcO5OPs56u5sME QAR20W/zEMtMXMWO0jyHDKl ro0TsnMS+00HgpKU8dCAUQt /Za9D6D MLh3WzHtnkyobOY/F3If4O3 uAe1PU0nToTn4qtaQyz2YA+ o6eA0lBwznd2WtL+xCWy+c4 5ju2Y2c gmtkPEor+SO47koAHs5+xlm Z9k0D70/gQ/grSSTFJExOok 958XgaJuYvBJ9gYHvaUEwpB l7dEHyR TmxFW2gVv6WCdMYI7xNoBD1 V1WOrF00D77aXJuXO2MCBXU A45guwNi6uRq0ZLcUnm6VXG ZlHGsmT qRUdJFQ9Ip4GvEnZh23vstV So+VLynLlAEqfOp/b3THGzM JFptNLUxbIgea8KcCjGH4Dz qOWbEDZ bO50GjcNTirTkbOZF+DnfE0 9MuamQsRkMzKHiN9XlYOHGA lvumpfzM942fQ6hZNem7qK/ R9a05V2 iOwGH2DwhqbRq1tZ4ja7Hoq xvUg/r17NINpeMFYtwSr2YS 2R3pXe (more content not included)... [facility] Please click on link to see report pdfCD:[id number] HMZpHzg1VNZgTnYQ5tovf0Y FaqPHCePHVhKYSsQIETPc3H X4syujueEALlGfZdMWBh BVMaZTemfqLwr4EisLJ2IRs cJv4FuzMhdW8bEIjKN387wQ AfkaEeR34tlZ7cSFMeo93hO n7LqpHi eMutowEfdYDuHLD4LrSxZuN aPrKdGRW4OmDlJIOzUQRnSD o+BraceqSgBsaCQECrCL6if us1WSfh WAssBIZkEp0zuNWee7NldOZ 9l3UFS3HjfaEXJC2dJB8Ljx wmuT4Fl4zqAPNrsVdeBQUAY 0ZsYWdz IREsEi2Tm925WtQgfZFlCRA 1PUScXzn6MGAaOESpDCWaAZ 5PL82be1JbvsrUxWK6sWLnD qaFZ2S6 DC6MMIa8Op3HdHOlSdK9UAj dHQFmfJgtAE2sfMUdVVZiZl 8SKMCYSTqzbXAdTmS0Tg4ZX KUfT8w3 IWFmCIwtNNKkWU79THixIHn oODDoK8JxeNXuGsFoYe2LKW TvdK6oQZR3WOrmZDD7R8dmb GggMTMz CjjnOPTeQ9bxmCkfIHq5Mk4 +XuOjQH2ntvd7CVAyv1KxBp a5Qu0InMGvOO9Py175Vh6Zx XZ2xVEt BM4FtdIoSVpyGJvkAlGrNUE uvhKvS9EfzDSqBGXukKQCrD VpsMPBSLtpQdvle2XLjZDlP BCgSw8L KYG4O7jwmoSiTCDTU9SzJ79 liI4pNT7FhV1FvsJsRX5xr2 EfomyXU1BaxhEXAOCokyuvk O8fKFVa MDQDQy0KiVI6nWEnJgQaZuo gMCAwIDAgMCAwIDAgMCAwID AgMCAwIDAgMAowIDAgMCAwI DAgMCAw IDAgMCAwIDAgMCAwIDAgMCA wCjAgMCAwIDcyMiAwIDAgMC AwIDYxMSAwIDAgMCAwIDAgM CAwCjAg MCAwIDAgNzIyIDAgMCAwIDA gMCAwIDAgMCAwIDAgMAowID PsGKM4IQQcQLL7AJJnTFJ2Y TYgMCAw LCBwZda7HHEvNIX3FPEpXKv 4HeRxNHN9KPAvCPJwGMH6PM S2GRWvYeUkIQ3+ToTnYB0vl ac2ZNTr h1LaTww5Ro8VgEGuIH2Cn05 3VKAnR9FrdNIajctsIv6vcU 9isCVqO4JblOArAPPID5UlW WdzIDMy Rj4Rc395SxGidPNdJES2QMH cCcY2ZPDdDRCmKBC7TE9DT1 5bn0IzfuiKtPZ9zLQwKpmCB 6Z4YR6T IOc4Sm8IrZRhEyR4VJgkCVD rhIqvJG8yyNXcTEukN3AkGP AqT6a8SKwjPwwuBPieaJbtm XP6SKqS T4GeX6KafTS8AFZWI6Plk8E lbnQgLTIxMgovTGVhZGluZy LuJVNGV83pfOefERKkBTEhI KFHB0E7 P1huJKPwANQ5JPn+PgplbmR pJeuCPIOmHM7ztkv4DXgsXK baSZIaZy6xoVfpQ1KxnJklW SAvVHJ1 YZJ5vSYNS8Fzx0WSk266SW2 DvegidU7CHo3FxYJrzESnBO PiJeBVD2ttk1PUcLOaMYRvF ShrWG4f h4RvupaxJ5fruqUht1cUerS oFJtkNoyhOj2xrWZip7UmpX J5x5NcYmPoQKVMP1knXTKny yBbIDI3 OBAnMULhOGJsFOl4HFApZHS gMCAwIDAgMCAyNzggMzMzCj W1NLIdEbwhLKI7WSX2RcI7R TYgNTU2 KSV9TwN8KNAmDCJ4VRL5PeU 6OAPrKCQ0SSB2ERTvKRZ7VK YnXgG3WBM3UULdWLF7LvzaT mK3TYgx CiH2LnQgVsV1VBZtVFUwZLq mRcSgZDQaYoL8SKH6AxR6Qd EZCqErGDn0HQY1TenuLcb3K DcyMiA2 XvtmKyPxUSagFqNqDCx0STY nAOC3XuDgOLMyNRLgIpHvYL XyERR8IlS4JKJxQOEnOGC6K uX2ZVSk Cel8XVR5QfD1WLInCsNwYOJ rGQFwPPTtTyR9CqHPUUH7RQ G5IiK3JOVoQPB8YLOdXbU4Y DAgMjc4 VFZ6UkM9ZXZrAzEgCDZtROY 7EYWrRz4PQQ8jw5PnXkftKJ WvWphLJLtJW0J2qWBaX6Eum nREZXNj jwvyyM7yPq4Ly586BuZiJUQ tZJSiOXmwKk8jGP7DIv8JcK FakgVuTcedOw2mtPFKg0xiE c04Kfjf QMU9JmXvPMBsCJQeXWBrKg2 LnIUdnG4bJ6lrwSavYnr7Gi 4TtOCdYRK0JTbpN2DezBQtG ndHW0x7 SUtrL1QcA5hdFFLCN2FhlBf xrPqpuDI5TZTMG1lKACmqwY NrODY1Zo6Mw1BddtKmSFZ1R z4XGEQv FF13MQ1yVPWFZ6iaOOMcuef pOPQwXs3FYAtFaBG5hJYyLG OyOg9VqhiHhFH3rRT9SipUI v7CHX9w r5HbHzFhZOJyf2CkFzh9Tw7 XzMWiZZ2Mh635Vp9DrHS2bX WePW4CxqFfQSucDZldRuYeT UZvbnQg Q6ZjyJMoRSVzdQVZPYfzNfn pt5ARkZJmMKEhKh8YPXM7Y2 ubtlJvZnFWF5WzT28mvB7fM C7BjG9X fgLsTZ5jy9TomrwLO6MybrW PXJTorsejiO6nOLjiZPXXCk 4GsGS3eTLfKzRvOgedAPXaD BJ5RvHo IDAgMCAwIDAgMCAwIDAgMCA zMzMKMCAwIDAgMCAwIDAgMC AwIDAgMCAwIDAgMzMzIDAgM CAwCjAg QWYdVOtqGeW9WvVlGpArRLx dHxN8XhrjThFpJJo3VID5Gp QaZku6DZWpCYMdTGsyXhc2Z jIgNzc4 ESD0NyDgDVarZkV3AbriNtZ xBImfYnIiECTkCPX9GpndMT SaRWFnRDcuMTQfLBL9VNIeU jExIDU1 FzD0TZLoAUO4GUCyFuAnFIL xGNIqFxxrJOK8BPXyMyf4UI y0VEk5QCLqEcSaXHKvYYJaO IS2GFM1 LVBcAfHbEUXcIHL9YWTuOFM 1LVK6Il6+PgplbmRvYmoKMT RzKTSoEabYJYyBD3cotgh9t DEgNTAx OquxXYEqA4ClTHU3OpBUZ0M yvURgyfCjO1WeCXVkZHPmu9 RlXQo+PkhomFBdFL8UqLyQV L5oSEXV P/e+j/o6d8ANz3wJqcalHex AEOCqkDxRBRwYJ20RX4QWWH svDBIkAlIQyoQCgpvQxhJst QIBRQGJ ywPsSSCiDgMHtnB9lLVYGz2 nZElgqbkIEkcOj60RPoCuWf /oTO07+k0s9cREH/ecc+/bj wABADu0 wRY12qv8+ks5hw+p6ijVCp6 p4fVd5oicibWnTYOHHt8dHi /0N7/HxJze6mxL1fYSUWO/e c+F6Tg/ ymaJm1PHvTK5DtRmMb0TBh3 Dl51lnEeUTTh770UinEE4EC 7TQGQRQFK7n01Yg19JkqrBs nN84Kka Q22vg3dpTzINMX/V0HzPW+O JJP7IDXVn09m7hbp8ndohaP TCY2VAOOiZ5PRr24x6aQGHB R20W/[place] HySWUNP0jbIQDvhy5HpeIU+ 79IcfUH6oOXZDo/Xk6J0FBN g0XoVjvuoeqEC/Q9Ip9J6uP m7OY6sU wYb3xwdIoh0GE+r0bF8nXkf gp9BnA+xCWy+p30qy3K1dmz tkPEor+BA78ptGDb6+xlmO3 h2Y78/g Q/iyGFBZAFmSbj363IyjOlU fQW7yKXtrIQpwHu9kDQoWLs gIU9fTw0SIsRQK2pFaAW2T2 SFrX28K 05bEYhNL3KTIYFH09pgbUl4 fAz5FBlUma4CMZAzSQmeQzB OvSLQ5Qa7ZoMxHj34sshPGc +VLynLl AEqfOp/y2FBBlSZYjlDIRsq Zvjc3MdNaQG5WrhIIbJCEwF 38HuyDTtgPhyECJ+VurB41E xfgGnYn HhVYmH2RoPICMFdhzfhufG7 89pX9hJLhk0pQ/W3v40N5oE bEZ9FuypaMa8eL5as2Ouezr Ug/o19I EYexZFClsOt6MD0Y0tGopmn kTnm//RO8uCUI3+vRmJen6s c0wmKfT4eGbiJs0H64sd3xt GBdWVhX HNiXlpClDQfoZ7YjFZdtPLw FIMizD47PwdSrZXlPfTk1yR oCXSwJKeTKGA2SRIo6BYjxK CLHsZb3 TW6f92vjbJ/K90OmvsfPqp8 h+ufjFLxGHrfZ3xflP/RFPJ Us1CW7wT7TVc/Dx3wdjPBxV UmjJZ/k G8qoZVIMKXsnLpc5tC5yk20 Llu+Si+X58n1Y+3b5iakFo6 IqkpKhTFWmozQqDymblFZlL 57ofqVf bmk6Gl1qgNQY6rd+rYb0MJ3 HikdsI8OdsB1yq0cTB8gNdO vsU+4anUGcqI4FVIhIyII81 kit7jX4 3W/Q+8JkAWLe8MN4EBNtz86 gNRyMjapIlAoGac0d54Brrj /XJBtUymdhgbQImpRaKYpdh kNktbyZ vCz10w73FSlDWpjzyI98yBO oM0Q/6dPSEbaehdinmOkVaZ mXjZqFNNsgQZFr7zK6tlQQ4 8aRvE8Q EiYhoDc9DAbBbhZEa3zEdKG mhllje3mulFZG5sZ7bsYgE+ 6gU+cGlhCAUGHvPN5x0Hgxe IgATzT4 /SkfhTkmKrA94BLhQwnEKkr hPrL2XJxdfUEPTmF4rOI7wx VOKkgCCvr3fYDLGnZZygfFC QpSBcmC JEHEcw/vC8eefY9risa0M/E i9iGKw9rrfUASPtNMjR1PdF f5sQdYKuEjSqzE09DMnodIC UHPCzoo 9OdQfiS3Jc7IaZvqSgTHnWQ ICgKPB/lDxPuIPsRbiLOIM4 cHWAuM9HaGJQ8YIzSBJ+rLc hNtibb8 1s6o2cYK8fwv2z8bgNxrN3y sn2j8VtkiyPmXr/pPhY6I1s NsrDZG (more content not included)... [facility] Please click on link to see report pdfCD:[id number] PUHpVmf6EAPuSqFI8zcrx8U MtoKHEhHFHgYWYgEWQZRk2Q M3blwdeiQTVfTmBgEYEr RCAkRJisxgVux2EahAE4OFa sSg7OjfWufR2rVJrRQ031aI WugeRpG34hiS9hXEQee89gR m7XmzEg xYzrlzDtxDBrSDM8FdSaUzN mYdJzFDS5KrIhIFNbRERfST o+CxbdnmOwHnaZPDPdZO4ur ii8IEbk COcjBPEjXk1miUGei8LuvFB 1k2KOW7RdhxEABZ6nJO3Xul wjkG6Rf0mjXNPkoRknDQIJN 0ZsYWdz SWFxYb4Qd663HwJcgVWbKLA 8VIUsEew8QHEdQXTmAZSwCI 6NV96vf3DuqmjPlFA2gCLjP toON1V9 RG3QHCp7Vp7VqYRiHxA7NEj iOHHteBurGM8duPZnKQQhLx 5ZAPYRRZuuqKAgPiK9Cb4DG BEnE7x3 RKVaOFdpAQVhTV83BMbbBBm pQHVvI1TvoOEsJxViOi5DOQ EskF1xVUB3HBwcOAG1H6vgw GggMTMz XqmfPDYkC3yhoSogHVr0Au5 +BdBfXP9lszx0PQRpy9SiTu l5Sp7PwOJdCI8Gg041Ns6Qi LR4mGKd DH2OzyCxGSiqAPhrPkFrRFW relTnU7HveMUcJSFrfTIRoM CcnARMVChrFwmqk7KCyHHwA JGiEb8F SCL0N6rnphKhVwDVT8CuB44 dcE1cIR3XzC3IboIcZT3av6 TaqtfEK0WhnfWAKHLigvwgo Y2iZHJd VRNFBg9RmMG0wIZlRuKhIyt gMCAwIDAgMCAwIDAgMCAwID AgMCAwIDAgMzMzCjAgMCAwI DAgMCAw IDAgMCAwIDAgMCAwIDMzMyA wIDAgMAowIDAgMCAwIDAgMC F1TmTrAuB9FYBwUTYlENX1K CAwIDAg UWW3EhUYWKOnUTB4JpLqKCQ gMCAwIDAgMCAwIDAgMCAwID AcHLMuGpHpTWAeOTL4ExNfN UA9RiY2 UKXeYSW7SNLyHcC7IEFzAYR cVsrcJQUjXZUoOAk4UpOaXZ K7BHTrBaGkYFCnQsr0SUV6R iAzMzMg BXTxDIKtYWF4NQT7In4+Pgp fynXiIfbNNpVpUH6hksj7SJ bxZAvtNFGzPc9wlNYii6Evt VG0r8AL G9TvhsSGFP6tXG1CpufziA3 Qp2sqMOAHN1AoRTuxJSWfZa 2Gs831BiVjoAWcSCLfMREbO iz2KZIi PDHrTAI2Qh4XV12sn2Fcxad ArRU9nQViDpdND7R6ZD8YVH m6Mv8CqAPgMhD9NRtrQZByb WwrJI6p tJZiULemJ1ToQWIvM8q8TDx gTmpqXBbnvQjluTM3TWkWJ7 YrN3OpiOL2HUAWR1Nqa7Ytr nQgLTIx GhiqHUWoKYkgZiHsARCBX03 ztCcxJGJwEGDuULSKF6Z2A5 znISZdNXP6LMz+PgplbmRvY moKOCAw UC0rtjn3FLpmVNkzZKMlPk0 coPzjB1QcjYepULJgIDJ3MM L3lGCDN6Qor5UDo689RL5Nz psdsR9D d1yeASIKP0JazmN4K1vyhtH zMgovTGFzdENoYXIgMTIxCi 8IbuHpRInkOmVbQ0jfTA5ey ADmJ65v xZ5ySc5Ap543GXOiV8FurCC agpU7RVKpWwdbX4xjpNfoNU fdJqj6NWNqRXL3RBAdQDKaD DAgMCAw IDAgMCAwIDAgMAoyNzggMjc 3LZP1UzG8XFBcMVP3TGC3Cm J5DRLlYCO9ZPD8GfO6SKKfN GU5JIE9 NiAzMzMgMCAwIDAKMCAwIDA kWlEgAJgnUaI5YoLdDmOtXM A9UtF8FKLkQob1TQuqPhKkI zggMCA3 GdEqJjFqKPqwIdm4FeRrJjp 4GGN7ZrJeMDyyYdA9RgjnPm KxMYdhXuJnDYd4ESIeEAUkN CAwIDAg BUdlRLBsRRJ5VSTxYeTyWKJ 2CiS4GKYrTIA7HGWeDdSeIG PaGOWwNevpSXG3WTZqJno6Z Ue7IGn1 PXMqCeIuTLTpUID9SSQzZvz 0JOD9TjIrCeStQkTxFQA6Vl Q8RfutMGD8SMS1Rt8+Pgplb mRvYmoK TXVmCB1ubaf0OAilOQfpJIX rOn5vjVXjr3GjdDP7w1VMP9 ZbvcVZRF5mHB5RvfvlrQ6SQ p9VwINx sbViOoxiNg9egAJBv3zlRd1 2NjUgLTMyNSAyMDAwIDEwND TmLi0FxKHkjV2jG9deqHvfP ap1Tn2W jKHaGIV1KGkdP6UcbLNwWic RJ6k9XQynT3AgS4ivSQXLH4 NlcRfpqArqwXK6PYQQP7zOO WlnaHQg NLV8Ii4Fw7CkmxVgSSK1Nh3 CENPqSV52HD6dTJVIC7ymVN DsuwxuLRIiVp9VRUwYcRY7z CAyMDAw Ie6EvclOhLU0vSL2MALCQh3 KRA3tv0JxEsPmCZYqb0LoYv b1Qe3TqOEnRK3Ah727Mx4Yj SM1nHPt BL0BgoDoOCoaITyaWfNzSUP solHgV6RweHHeTGOHX5Kofk I9W6osngBiUlyyGOYwzLFhF XIgMTIy Ql8SedFmXTcnMqSlR5chZU1 qgIIvT66ymH7hKj5Ez587XW FtB5WevUEatrZ8IXBvCrhjL 2lkdGhz KEshOpv3MQYiFXVeRXPeZKi 3PVZhTVEyINVsZHRpZJD8AE MmDwOOIdq2XBR0TQW5NKGqF MP9SOV7 JbA7APQmUBK3QMZ1ObT6VUV mIQH2MQFyKXB6RPF3RSHsBD QnJGusRSOxGWO5DvzuVlM6E DcyMiA3 TcQrQqO9ZPZxBMVuEOQpSga 9GVMpCXEaBVhlNgm3HsJiUF Q4KptbIMX7EoOyKzI8HPRrV FS8TmZw IID4BDNlOKCzSIHhGAOfAGJ UPLMbVQHsFYS4OTP2ZgD9GR BqXOJ7ZSF2IxBrRsmtYOO8L YN5CvMt IvSeJGG6PDGwWpJdPTbcNvc 0PYGpHWU9NVP3QhBoAGBeWt P3ZWOhNmu4WFK9TgP3GXFcJ zIyIDUw IER2NICqMENjWW5+CmVuZG9 jcjykCMLjXS8tcbj7RZqzEK UrS1HcKGN5UDNuDo4RJG7xc GggMjg0 MAovRmlsdGVyIFsvRmxhdGV EZWNvZGVdCj4+MwO3baDruQ j01mBHuPZB2CJ/077R9AXu8 0nKWnjL KyFKIxSPYZGP0iKYUspL5GV 7bHKlgEDgHVuWhIDZMQxNm5 LvZjfENLNT1XsWZimEORqBx vRK5H6T i/8Do4RQYsjOEcfg/b33kgy hI9M/+px9zUme/v6379fvha x7hmshkTVPi8iFKV06/Trtx qgIs2X4 QiTlNTTfs+tCr6HNKjaiBjQ 4NV4kG42P/+NuopjLROxyY3 942vD4Q/RpD3o6zbrXYs6Vd P1W1RU5 tQZW5qG7e8gKQFBtQk1qKz5 geSu47zaPfN/h/pNxlwt1F8 fKU+B/Cf5a8+e464BDfocgk Pma+ub5 d963NYgSC6oI/23X+W+1TIP UMj/qzFze1UqekirPYU4dSU VTO++yfSgHMDAqp0+lHsqmN ZY+hx7C XoE0mE0ycz6QKQyFqJhvN4F 5sNWCmRWjnbVZ/RCkruef3B 5+mp+7fRHXd8n8bDZ7LD3Km /G20It0 qI1Nv3Q3L2nwoU46N5UniPC usMmQVvYJ6+PD3KJcjaKFGs 925Psr+pD+yhJZPguxk/CJ5 5utXOzV HbZhWxEhwrCBWkcMbGCa9FU H6zaDMySSU/MdvIMb/LQQEP QyDhjydzx7YAraymKNdgkZx N+jhVi5 dg0qvRjXcysmVIdEz8GOds9 fcJh7KD7tVD2QHBdpLFKjUm nuKWqzfsQ47iWmakwrtiZql SONUmk6 kuRifKddRHf91pRKJEw3CH1 2Ri6qMbdHgdlKV+pL7eg8iS 7SFXQnFmLWNZPNYksgAcgat hvyLG9c d6No1LuJvA2co4eU+3wCqra aGvRjSF0dB/Jj/G3+Dv+Y9/ LP+WdYSQ3fzLXcnOKDIOqAe 3T3mIYb ZCnOK9ivVUqpmV2Zp4bg5QV jjK3xFMjUkoubJW/yinMqjU JoMraidUlmau6e6QUaYLPy2 yKQY/Qy pIc+N+dEAO3MWiulFgfM6YC BaP6cMfcIzYWgUcv3zr6ITz HjkHB0sZspZahL+3V1kurHK nZmia6G XyVfyJfwlfxx/gR/ir+AE9n FT/IP+SKZ1Yj4KBENLH8wHu RUu5MXEBFjAkSGG1YY7cWqJ ejDvkWL s8v61jPliqS+PuvXJ5MAees NZhOFXq5gLbsY8rP7Byuuts lrRmld6le4xVTNxqqZ++Qu+ CL5trLo JCsTIVOVacpCpUlZrxxWepV Y5OLPJzoHyaxfBh1vW+nV65 9nn4O1R+f5z4o8vf5Cxosrd IWXZj57 XPxwyxsaLYL4goK5RLg9Y4e iOKhCPEtLhGXUJNUIUcolOs wMlocOF9ZE3fJLjWWqdHGJ+ oQDUqo8 2+7mh7G4ePcXzbeagJFcvDs cBXugQhmIFyNm1RUiYVU1Fb dr24QrdKfTrqBYzRubCvg4r 2qQTE97 J7kZj2ScYf0CDELD4hYebB5 0pP4uP38uYAuhhJLJL14pGP O13EGTfeBt65JydrvCjmkbb t1iJyT0 KgAMGt2d1pOHd5v9kZ36gfl iT9jSlVpEw5dOCv0N+TbNsW vEOpNBta9ZAhh8X/rVfLU6Y tX71ORl PgPn0LTnAwbOYBHnR/YBe4E 6PRaeBtsDdomiE6USj8q94W ikoVfl17S84yAc7HKQd524V dcmxSbJ Kh9Nkg1qO3W8kG6qCgWclAX 8BGmBqSKiDb5Ce0WWSV7hhl Ij0TEz (more content not included)... [facility] Please click on link to see report pdfCD:[id number] EOIlTmy3OBRcWsWH1mbtk3Q KhjMMYfASLyAQIdJAYWId7H R3jlajnsRPWfUqPoHLZa URAfGQzowdSof4ZqhTF2JVu dQt3CnySghB4lEBzFD745qA WuqwKyS57ahY8iZLGqf02xS f7KvaXd kVdyysAgrVPdNRR8KmKeGoF xMzExNDIxNTItMDUnMDAnKQ o+TngilpVzJfmNUXYeCZ2dz vc6CBwt PVlaYRFiBw6biGTcn8VkdJP 1s8SEI4EfkwTGSW5jUM1Gcc cgrB8Du2zzZWLqlXyfIUOXO 0ZsYWdz FAHkEf9Qb955BuAbvJSwANV 4VOXzZab4TPTcAIQdRWDcQQ 6II11bk4TjuosOuWN6oNHbM pjSU7N8 SK7YSKt8Mb5LzBMeHkJ7YZs gTPVoxFsfIP6epVHvKPGeQi 0ILSCMIXpydLHqSoL8Ym7DD RKjE7m1 TKYyVMkgQVGvAU34KLfoOUl zOGDbL5GeuMYgDiDzTw5YKK HqsU5tLDX6BNsbXLK9O7epc GggMTMz JiytGAObZ7abfUrmEUc9Iy3 +JsXkMB8thzh1QPEqm5FnDn y7Nt5WcHDlEY1Mn023Aa3Bu DO2fTRs KQ3IqbVbIIpgHGmbRiWcNZX lupVoM9ErbIAsRQHxwWIKjS TgxDBIEXpuXgjsf2GDbYLbS SRfJm5N VOB5O7kwrlEsWrYKY3PcO82 jdF7oTY3GvD7RuzQoDK3mf1 QzrluWH4IibzQUKWZnrfxvr L7eTAUw VBIPUd7PyQD2cGKpHqTbNzg gMCAwIDAgMCAwIDAgMCAwID AgMCAwIDAgMzMzCjAgMCAwI DAgMCAw IDAgMCAwIDAgMCAwIDAgMCA wIDAKMCAwIDAgMCAwIDAgNz PoDZE0CrEpJSWsRPXtEwcpQ CAwIDAg ODMzCjAgMCAwIDAgMCAwIDA gMCAwIDAgMCAwIDAgMCAwID ERKKJmSCOlBLW8KXPxGKD7L DYxMSA1 NTYgMzMzIDAgMCAyNzggMCA kYYG7SSM8MXrYAgVeROOjFW WhKQGpVmb3JNDmLjVaIKDsE CAwIDAg IGE0ZC3+NgPqVN7yklk4MDH ed4RkFel1By6YlVWhXF0Nx4 10RYXhZ2DzqHSzatxsCl0un D5klUAy I0HweYKaJMZopBGAOAyeHws gD1QhCyIDE4RhlzVEWu90EV dcNlQ9LT5wFeQvTlXcAYDaX VZ9FMwc VPmkc8gmE7qoPWPePLZ6TQg mP9DylDplAghCZ8Y8PX3FFO r0Hx0KgPBedJNJciayRJMcJ x6PVKOC RDkavONbSoF4Qq1EVEBcR4d 8XIPzSQpeCVLuMS41AKvfQG qvMJPwF0KcqRZjYeAxUo0AC GKohE1d KOY2IZnmZQJ8D6qehMadJhK hSEzqFIQcM5qncRdkSZw0Fj 4+RpNzIL9futk9JBBxm7KwW pc4Mo0U mZPzRG3Jc474Fk4IwVZ1yRC fRL3FchZjTJhoBXbwTwMhAK DgnlIgB0BcgEHqHJIzrQXUW AovRmly g4YDeUNhBYSmRq2MIUL5F7y ggwMjPlCQP5LyC31owJ0yYQ 4TpS3CfpQyNH2qx5VqodeYI 0ZvbnRE DXFpzzyfeY7aGRekAZHJYn9 JpZX4jUSsFaOpBqlvMIDnCW S8KqCyICChBHJjNBHrNLPyX DAgMjc4 ZURjNbiwVjroHol4WDC5QsK 4XVKiDHK3TXT4HuY1LXZaQB G9ZFHbGDK9RWF2HdJ9RZJmU zMzIDAg XLXdRoKvBQJcXXgrAwH6WqB gJvZbCHbwYxX8ChuqSIR4Gf gmBvXaUUC3KMJiTUkzWuY3F TEgODMz CywwOgN2UpnmBuE9HDw6RNS 2HtCrTwW7EZIxQCF9FzDgOb W7TTo1NVQlLZFvUfGfQNOiG CAwCjAg HHVqEHK7HxB5FVPqENE7TOC jIZO5ENIjCcAlEHYoWDI3TK UiIzx4XGNhNXO4BIU1ZYF3T DkKNjEx EMYaTAP0UVCsBzDlBIG9NRR 1HENnOwCeVGDuZIH9HINjRu b1HIC1SeF9ROHcNNEaWN2+C eNuAW4v ovb1RQPop5OjEob2Cb5XtJW eFC0Qd324HEOzC1VqzGUxaq hiUq4bkG4hzXNnI1RihNmgj mktSXRh oIzoBy5TwVTsklAtSfygHk8 ehAZGs3siCy12SkZmYZQ4Yc ErZbBkWSVvSpZfTz3GjIOsn E4rF6wt hAogJhM7Bt1PmHEnCET9EFd qF8HxxVCfUGJAA8p5CHswV6 LpO5paID9jKZugH3QwNCVqR 7o4UXBv XWjyUCvpyKizmNJ2WtIZQ6P mY5FmnOY5UNTUX9Zrf2Jxvy RvPOR4RFncNPDuQPmiLtJjJ qXAO92j gRmnDPDoBSMcYkwCX6F5M5u pZHRoIDUyMQo+PgplbmRvYm fCKSPhIHYwBpfBQVgPX0D1w FYhC5Bd dzBTR0R0ZaB6cUHvU6XziYM LaAFjXt3XSXEfNq0riSEmZ9 AnsZUmrN7AkLOovZQVT6Fzi vW6O1iq ciAzMgovTGFzdENoYXIgMTI iPp1OlkMtQHjlXwUxA7biDO 7ovQGpU90sxL5bRu9Zr763O WLaR1Nu hBVkivI4YVZsRnzpG6hbhSa rJAfcMvR7WYZmVHCvGGXoJQ AwIDAgMzAzIDMwMyAwIDAgM CAwCjAg Vuj0IVMpLLOuJWNxZYUyXUH gMCAwIDAgMCAwIDAgMAowID MbPCQ5EcukTJJ0BgTsDoR7H DAgNDU5 AGWzKOK3RsQpZcKaSHBzHTA 2VhOyCBK2TiR8VNE6KWXbRQ M7QPTdAGPpSCF2QmG4MZhhW jQyIDAg MCAwIDAgMCAwIDAgMAowIDA bFRW2REXfOFY5FZWkCiM1KG IkTRc7PZUeVNO1YKBeUFT7U DIyOSAw ANQnNiC3MRh2EJn8MBXbAIO yCANuCXTgQJL9GcTuFWnrFt G5DMZhGWX5FKFrJKV9YeOsI DQ3XT4+ XoOsVR5rdrexJTNwXY8jqhh 5ULcmNRwtZYCeCv8fiXSvm1 NlpVR4t5UEN1AmavMEYB5aJ J9XONgv NvCyEXJkzXLRmBHvmRFMR8C dFOhwOEGlLd7Lg940NwTuwG NoKZW6UOOpCiS7EDLuCfXmJ OLtEM7D B58yu7TxchbVzAN3tVKiPuQ GE7H6PS0JIXs6Cm4RsZIaRw Y9HHvmJGJepIuuLQ0wqWFnZ CSpGv7L KJGLOTihpNPaYkT3Sl2EHCZ qW1o1BUH4LRrlGEBdEY25VD g5MoxhGHXbG0GdmQIcFjS4M z9YQOGw yE1cEUWwJPrdDEH7M6ujeUl aASSrZZibMFMdX6izcUzcWY M3Cj4+LvMoLB5nzjtcWjPfW F2xdvg8 TPwkAHvgXLWdOz9knJymV7O jsGhaJPMbFTF7EVR7iYQNI5 Fup5ZDt028PA6QMLywDwReF UJvbGRJ bVBzmDPCM1GfgeW4C5ldyqU zMgovTGFzdENoYXIgMTIxCi 6QlvFuLKshOsIoL1hsTJ6aw UCzA77a gB8xUj9Qy026WQMnC2BicPP pckYkFGXwJDFJZ5qyHLRofc BbIDIyNiAwIDAgMCAwIDAgM CAwIDAg MCAwIDAgMCAwCjAgMCAwIDA gMCAwIDAgMCAwIDAgMCAwID A9CoDhFLPcPMsvTYUaHWS4F DYgMCAw DPUhVHY3NYvcHMDyJMSrXQW tEMShGBBsXNc6HWgvVTPuYF AwIDAgMCAwIDAgMCAwIDAgM CAwIDAg MCAwCjAgMCAwIDUyOCAwIDQ jKtB6HmudLDcqKPTwEIRqLW A7NqNvPJWgMjA0BMEZRBU2Q DUyNyAw PYZvTrKlAWG9UXJjURdoEJU 5NkhePEJoLZI8ZP6+Pgplbm RvYmoKMTMgMCBvYmoKPDwKL 8C6bJNs E5OrawZAHDRdpclnnW1aUf6 Iw188JvQlTSBpOLBqFKfFYY xiIdstK3EbRzTAA8DnwrDVB o12KDfw NdQ8CE7iEsArYbRxFCUiCSS gCKjfOWzro3kcW5veDZEvPI H8IHdaX1CqlZztEfbRQ5C8Y P8NSSp5 Ql1NhZHyaRLRzigpGKFeRt0 PCBBZSSjwhTVwMrF3Tq9SEW WeR0w2UPZsCXpaMRZpNV84E DkwNQov EDDfK6AksJIvQaXqFs4UXGO psL9iOBL3STohAQR9M3occW tcPlObLRdkZUCbM9glxOvxX DQxCj4+ JqVcOB6vejneOXNhHN0izlr 9OHpuPUyaIWDcUl4ywVmaV1 RgqQstEMTyMMR0ILO7hGQYS 7Pbe2FU k903TD2HigiokE3YYb3UrCR wpOTeJLPwVrNLX8wnc2GAzF EaLASsAysvDW0ks9ZtekvnG 1dpbkFu q4hWomXqBGblAsvjWy9hvAC bq2VyeGY5r1VkAJQpCTPOJp 9QaHD0lPMjFeQzXfplZXPjR DAgMCAw CBDnQRQpZVKiPPD7SAEsHIM bIqIZWuc8EOS3SMK4UESeGX O0DOI9BnY6KAVfXNL7SWX1N oA3ZYYz OLL7IDViVLBwEypjPWLrUPG QHCQhNHVtFmT5RPK0PdH7Fb HnEnAzNBE1DaO8TIKzYTX8P jIgMjc4 BRTqJCPbSGbgWep6UqTvXZC 9VowmDZU3HsNkVaI9IYVfBH AfAAIdYWRuCPW4AwRzPUHvL CAwCjAg FOZdGEO9AzZ0JNNrGEVnSNH 7XhS8IDFbEza3AAZ9WkX2KY FdTpXkQIFyOGLgXBCaSbQ1S zMKNTU2 THG2XuS4FQWqOWQ2ZLBiPrY 5GXEjMwi1NBC5DnR8LPHwQs IyIDUw (more content not included)... Normal [facility] Please click on link to see report pdfCD:[id number] GZQcZci0OOIyJbFT3ikns3S BvpYGUhDCVnENLvUZFJAs5G G2znbxvfIHUhKcHnURFp WXRhLEyrcpDrw5JemEV0IOw mOw6MjhSlcT3sQTgNM215kU FtosReO74jcF1jUTIuy88jM o2UstKw iPoecmBkhURzGSH9YnCnMlN xMzExNDIxMzktMDUnMDAnKQ o+CngrnqKlQmpDIXInPO6cq kf8ZVgk TPfyTRMzPc8exLBib3PieIG 2n5ESL6CxrgNWAK9wIA9Aed xrqV1Lg9qoNUIqbSbpHJHEK 0ZsYWdz LSRbSb9Hj200OuDayFKpVIZ 7DBIeJrm6BTGsAUBfZFWtZF 0FO72bh7MmfdpTtKH1mZZwF beBT4E0 UM1YYEa0Vt0YiNRbSyL0YIh bCPGqlEcpIN2liVUfAEYdYu 9BLMLTVLzzhVScIyB6Cr9NV MOuA9s8 IXLrNLpaSXHjWZ91UGtgMRc gXMQfO8StnDMmWzTbMz4LAA DjiP9fVUM6XVhiEKR0N4fti GggMTMz JdddIEAvE8vtbNtuBJj3Sp4 +YvDyJB4wxjd5HUMvw1MjBx a8Bq7YvRDfNP9Zg806Eq8Dp OK3oWRl GS7SbgCbNHgdAJecRnAxKDH wbfYiV9ZivRAfCLOwmEGDjK BvnEPTSQohKxkau3GNeASsG TFyQb0Q OUS6J4bxfmPtSwKVA4ZeT51 vtV2gUQ6VaM1IgoNlWM5op8 MnzltVG6NgftFSDVGftyeho P6cTJNk IINROg0UqRK9lSJcBaPmLyr gMCAwIDAgMCAwIDAgMCAwID AgMCAwIDAgMzMzCjAgMCAwI DAgMCAw IDAgMCAwIDAgMCAwIDAgMCA wIDAKMCAwIDAgMCAwIDcyMi AwIDAgNjExIDAgNzIyIDAgM CAwIDAg RXNyNfCcSRM1GfztRXX4VpE rKNO5XYKhWFFaYXMjHMMdFQ WsSFGjWPRGRQRqDCLkMQQ1H DYxMSA1 SQPiLnObIVF8KzGiTSYuGCJ 3KYGsMdk2LOCiLGOcTjglBL d1SzAwSIL5MVVzSlRzSMGxZ zq8QNC5 NiAzMzMgNjExIDAgMCAwIDU 1Nl0+PgplbmRvYmoKNyAwIG 7hjfq5ICjwMAloNTFoCz2kq XBgi1Vg eMI8z7LEX6FaskRZIL4rSB3 BlwblxD3WTs3XiZQryhDlFd yzRs0ooNZSp3dqOu66JzOnY TMyNSAy VTOrCQJrTLAwFy6XyIToqV4 fB1wtaHayWqu7Zv6TuWToRX F5NUqqL8TwtZCsKgeIS9j0Z WdwV3Nd B7joYLRCJ4KdiOerbMdvmVL 6YHOEI8pBJRsflORfKEZ3Vk 6Ih9PuanSkALV2Qc6PHODoS W31WM9g WUUYP8lgBCBnnohzKYNoGk8 ATLoSzMT9jPUsGQEsOp4Ibq zXyUI2nUZ2TZORRh8ZHN0hl 2JqCjgg MLYaRpmSFWoVB6N6nDSnL1E uvsHHJ3P1GuG0sQTgY8QpfN DBfAWlKt4DZFVsKo3bhVFiN XJpYWxN IEvfXkzoq3KGcODzVRUiVa2 ZSSS7Q4uknkVyKdCCZ2KlA3 6kvC7iYU2MxE0DmkMuMW7sq 2RpbmcK Q5KccsCKNQEeklnntQ8eZWl yVFJHJd5FeZC5bVCeSgGlPu ggMCAwIDAgMCAwIDAgMCAwI DAgMCAw CUU8AUAnRzIBCez1NAT2XIF 6IWAnDZO5SPR6CqQ5JJEsXU U3KLI5CbJ9SWVpNVP3NPW4Y pV8WJQd Tyu1TNUiDMScJgDbLRStCUV 4PqB9LdxlMgGtRHorAsJ4Ag yuVxOwISh9ENK4TjNhRfa2K DAgNjY3 TWK0XyK7DlSOKoGuQZb5WXK 2IhurRVJ3TvYqOaQ2ZHXfWV F4MqIxFpX6MNs4GXIlGDNyJ CAwIDAg BMdvNQXiJRZ1BCLxMRT4YKW cWAP8SBUsYRW7QBI9ZSK9US PoZSH0JZSbSsBjJWSnJPUmF jIgODMz KtU8XyV8SZEeFIS7CGUpIhN mJWHrUTUrDqseVYG5PQJgFN K0WqOkVWI7BNJbXj2SSW8ek 2JqCjkg HDJmEpxEICrHP2R3lAKsC3H pkyKNCSZcvalpvJ8oKb8Uk2 15RmYjNGTeALXmJVioGj0aA J6EEl9G qPPtwsJpYhebKh5bnIMGc7x qAc83QkzmDGH0VxPoNFFgON HdAWBmZf2QhJApjU6mB8jdq GggMjc4 Pk0MgQRkXXB5UZdbC7PpdZN cDbaOZ6h5XZqgD6TqN8dpGD BRP5TlxZmayWzokBV3MNOZJ 1hIZWln nDDuOXA4Pd9Vx8DbitOfSWL 7Th3NYFSbUO25WO6nMRSAZ6 qiMBJkchnvHVScMi7UGRzCs VV1tVAi ZVDmWk9PxmzAxTJ1kOY4Giw ESh8OXS3lm0CeVgXvGFMrk4 ElGnq2Qo2UcDDnMR9Sf998I i5GkDI6 fZQtVP5FqvDoWIfhKWfpWjM yAWCmzwLfN6KbuROmXVNjqT IMOGpzGiwqu4BBxLFmCRXeC q1MNGK8 U9pauwZdDeZPK3YdK80xrC5 aIM5HsO4ZvxVxID6er2Znip gAI2EkajIXTRUijywthM5hI DkgMCBS Zr0ToTI2pJAtJxQxEtyjZIZ qFQY2GvUyKLImHVEtTNWaPx AzMzMgMCAwIDAgMAoyNzggM CAwIDAg MCAwIDAgMCAwIDAgMCAwIDM mLnGwMHDcCLsnUGAyGMK0Qx QwAbOmZHqnOpU8SqMyCgG9O DYxMSA3 ZfybRlJpGJN2OIOtAKUxMlL sBGfwKjy7ExPjJtg3BIL7Cl S3EyluEdRtQVK2VyY4MLGcP CAwIDk0 NCAwIDAgNjExIDAgMCAwCjA gAIKtTVR8GsP1IECgXOM7DW BdXTH7UKKeKyExOZKhUVP6A TEgMjc4 HEXnQVP0IKR9NMM9EPbHPvV vDZIaCVV6SJXiTSMdFDxrTS F9ZJDuHwU5GXBfLRZ2KPAnW RB7VXP1 Nl0+PgplbmRvYmoKMTEgMCB kJglLCRcWK8jkfic3qTUiTI CyJSpuGYRqI3OxYPS0LIOPO 0ZpbHRl uvSnK6MvONTxBNIll5KsMWy +YfriwRAmEG5CeEjwRO8fID UVP/e+y51jYOFTzys05StUI CGSgIQP z5BsK3EpW5ON3WRBituFyuM gCEJpKFBwE+xSoh0/gKCigE KzDlDLhSlRER9xHEz3j8HwM +PoWOKM CiFxC3Z+3vqCPejF7M/9o9O +k9/73XvOeeeec+79u40JYI FbYhWVzHGxBlD3zcXvSGFOb SNz9G4L wxl2cnARqNWPHLk2CNK4+uO inuqxjjuXxUE34WZTFq1aoP p3o5SGUC1FVVM0F6vNVwue5 bBizbon UlMvQUpQCs5pK8uUTRGqiws PFN+G/nhSAlgqhOyn5bOqAI +ltlZzWmdUX5xzXm9TYuBrd +5cily+ IBLm03/bceFfWiZCaliAb+a L1PdMpiW+EgiAprF8knZqen /aIZLm3lR59Q94lAzG17TPe Ivpr+wg /ihPkLCa6IdvuMVyYUaKiFd v6tpcuP+egZy1Tx/kZ/gZyz kZociGJ6f8v3UYzIwuQ95Ih 9hp+Gyg 3gKzeUsyAQnlLh33oP3OaMQ PWC+yaRxB1gXNrhx1Ks9f7Z m2U8xOAgnWiEOMQh4v0CDY8 ugng6WX ReAC1dRDdERwiI9SkY3i0Uh DfcCx9A1u4PgHyUabkpjL7p SlEVEYceyCBFRoRvsuzcPI1 fTIcFRb ujX4t9OfTBB1gjZkx1XoI2T FZ/AMpUDNvfKMAgj2jvSvlt 4IZK2Q6rvxLrnd1caFHL6jp SofxqhE cbA8AM4yfWhMQzjvf7lmciH +OkRROkm/IEcja0HJztM18y FmXVPYVLYQEoSsYpvYVsxHy 3Ywbu7O VpwY0Ktu+1VTIwN2XWB4B6s t/Bl+jL/Lf80/4T38S/61QI JXMHlVP8nKM1Uv8bmwNytE0 7E75kat xxKTDGumEuVk+LQ0XiCeEZK copFeo7LYLq6cHTNGWgcaFr lYdYt5IchPDulqrKpYxxrpy 9RLs3Tb kIHBSkyZyopZCVsACbJFLMR NlJHv9RCIG5WO3AG6GAN8WU mQXWR/CV9aN4gfoui4sAzN9 1fB5/GF fDl/ij/Nn+BvCHr12gQ5R45 JNfbwPtQYIyQKKcJowSeUQO NHi9H9jrkhXlvyUIX2fV1c1 x9lpaoV qHN5hfJ4aW+wklwSpHRpsjQ G2rD4TO1WInS87VP9Ri1if8 5BtwugQ0x0x/vkTvkj+ZqSo qQqYyET jPxYSDDGSjhmQcoBt1Vpbez OMP8Nluf6QVbYMkwxst1zf3 /EE9CouFB8xT5xbSPDD4585 1sw0ezE tgdI4IG8ySuQ2kt9ETWYTii UX4ON3GoBJiJQRWpJDeux6H vQNP1iG2V63WFMOofVU6Q8S N2eT/6M sKfMy2APc4BuVMX81YXDSEG uZtsCl1DfaTqS9yhfn50Ffa fs4KIRGfddoU6s6CHbUFB90 87yMaxF tg31UhQDPlaSbief9Gr9mS0 1pAYjmeaLCEf9oATA9lTTVK iFI6kXvwZzL1/naGkuaItF7 MqXv9e6 fGxZWy2g9zv81acgz03cNoW eUQamChf2KeEOWSAqkErIKq w9MNFa2flpl3ZS1UtEd6F4s ZME18Mq QAdwBDgIvAzsA/PZk5IMVXu SLpp3Ou7on+6m6nKGU5w1nN LNmncwK7PWf1y926W0vkTtG Pi6OiD8 sk5ANmL6hYfQq3NF6X9xAGK SwVq0Wg2G6pY4pujXuqRMoF gXW+st (more content not included)... Normal [facility] Blood Urea Nitrogenon 2022 Urea nitrogen [Mass/Vol] 30 mg/dL High 12-06 [facility] Comment on above: Performed By: #### C REMAY, BUN #### [facility] [address] [place] [address] [place] Creatinineon 04-07-2022 Creatinine [Mass/Vol] 1.21 mg/dL High 0.44-1.03 [facility] Comment on above: Performed By: #### C REAT, BUN #### [facility] [address] [place] [address] [place] Creatinine Clr Calc Pharmacy 46.76 [facility] Comment on above: Result Comment: PERF ORMED BY: [place] [address] PATHOLOGIST ELECTRONIC DEVELOPMENT TECHNICIAN AIRAM ROMEO M.D. Performed By: #### C REAT, BUN #### [facility] [address] [place] [address] [place] Estimated GFR ( Laura 53 [facility] Comment on above: Result Comment: GFR estimated reference range: According to KDOQI guidelines, <60 ml/min/1.73m2 is sufficient to diagnose a patient with chronic kidney disease. Performed By: #### C REAT, BUN #### [facility] [address] [id number] [place] Estimated GFR (Non- Am 44 Normal [facility] Comment on above: Performed By: #### C REAT, BUN #### [facility] [address] [id number] [place] Creatinine and Glomerular fi ltration rate.predicted panel (S/P/Bld)Ordered By: Miguel Membreno on 04-07-2022 Creatinine [Mass/Vol] 1.21 mg/dL 0.44-1.03 [facility] Estimated glomerular filtrat ion rate (GFR) non- AmericanOrdered By: Miguel Membreno on 04-07-2022 GFR/1.73 sq M.predicted among non-blacks MDRD (S/P/Bld) [Vol rate/Area] 44 mL/Min [facility] No Panel InformationOrdered By: Miguel Membreno on 04-07-2022 Estimated GFR () 53 mL/Min [facility] Comment on above: GFR estimated refere nce range: According to KDOQI guidelines, <60 ml/min/1.73m2 is sufficient to diagnose a patient with chronic kidney disease. Pharmacy Creatinine Clearance (Chem 46.76 [facility] Serum or plasma urea nitroge n measurement (mass/volume)Ordered By: Miguel Membreno on 04-07-2022 Urea nitrogen [Mass/Vol] 30 mg/dL 12-06 [facility] CHEMISTRYOrdered By: Genaro Rivera on 03-31-2022 Albumin Elph (U) [Mass fraction] mg/dL Invalid Interpretation [place] [facility] [place] Creatinine (U) [Mass/Vol] 95.7 mg/dL Invalid Interpretation Code [facility] [place] U Prot/Creat Ratio UT Invalid Interpretation Code 0.00 - 200.00 [facility] [place] CHEMISTRYOrdered By: SYSTEM SYSTEM on 03-31-2022 Albumin [Mass/Vol] 3.7 g/dL Normal 3.3 - 5.0 gm/dL [facility] Remisol Anion gap [Moles/Vol] 16 mmol/L Normal 6 - 16 mEq/L [facility] [place] Calcium [Mass/Vol] 8.8 mg/dL Low 8.9 - 11.1 mg/dL [facility] [place]isol Chloride [Moles/Vol] 103 mmol/L Normal 101 - 111 mmol/L [facility] [place] Remisol CO2 [Moles/Vol] 25 mmol/L Normal 21 - 31 mmol/L [facility] [place]isol Creatinine [Mass/Vol] 1.4 mg/dL High 0.5 - 1.3 mg/dL [facility] [place]isol GFR/1.73 sq M.predicted among blacks MDRD (S/P/Bld) [Vol rate/Area] 45 mL/min/1.73 m2 Low >=59mL/min/1.73 m2 [facility] [place] Chem S GFR/1.73 sq M.predicted among non-blacks MDRD (S/P/Bld) [Vol rate/Area] 37 mL/min/1.73 m2 Low >=59mL/min/1.73 m2 [facility] [place] Chem S Glucose [Mass/Vol] 203 mg/dL High 55 - 199 mg/dL [facility] Remisol Magnesium [Mass/Vol] 2.1 mg/dL Normal 1.3 - 2.4 mg/dL [facility] [place] Remisol Phosphate [Mass/Vol] 4.7 mg/dL High 1.9 - 4.6 mg/dL [facility] [place]isol Potassium [Moles/Vol] 3.8 mmol/L Normal 3.5 - 5.3 mmol/L [facility] [place] Remisol Sodium [Moles/Vol] 140 mmol/L Normal 135 - 145 mmol/L [facility] [place] Remisol Urea nitrogen [Mass/Vol] 29 mg/dL High 5 - 21 mg/dL [facility] [place] Remisol Urea nitrogen/Creatinine [Mass ratio] 21 mg/mg High 10 - 20 [facility] [place]isol HEMATOLOGYOrdered By: Chai Reid on 03-31-2022 Hematocrit (Bld) [Volume fraction] 39.5 % Normal 34.0 - 46.0 % [facility] [place] HemeAutoSS Hemoglobin (Bld) [Mass/Vol] 12.6 g/dL Normal 12.0 - 16.0 gm/dL [facility] [place] HemeAutoSS Reference Laboratory Testing Ordered By: Angelica Casas on 03-31-2022 Test Code 990372 Invalid Interpretation Code [facility] [place] SendOutsSS Test Code 794797 Invalid Interpretation Code [facility] [place] [place] SendOutsSS Test Name MPO AB Invalid Interpretation Code [facility] [place] SendOutsSS Test Name PR3 AB Invalid Interpretation Code [facility] [place] [facility] URINALYSISOrdered By: Elizabeth Rosas on 03-31-2022 [...] AM) Normal Negative [facility] UA Auto SS Farnham.plasma/Lith ium.RBC (Bld) [Mass ratio] 0-3 /HPF Normal [...] [facility] UA Auto SS Urobilinogen Qn (U) [id number] {Donell'U}/dL Normal 0.0 - 1.0 EU/dL [facility] UA Auto SS WBC Auto Ql (U) Negative (03/31/22 7:43 AM) Normal Negative [facility] UA Auto SS WBC LM.HPF (Urine sed) [#/Area] 0-5 /HPF Normal 0-5/HPF [facility] [place] UA Auto SS US ankle/arm indiceson 03-31 US ankle/arm indices [facility] Main [address] [address] Ultrasound Report Signed Patient: Evon Corcoran MR#: [id number] : [id number] Acct:[id number] Age/Sex: 71 / F ADM Date: 03/31/22 Loc: [facility] Room: Type: [facility] Attending Dr: Miguel Membreno MD Ordering [...] Miguel Membreno M.D.03/31/2022 3:38 PM Dictation Location: [place] [address] Tech: Christy Florian Transcribed By: PWS 03/31/22 153 Dictated By: Miguel Membreno MD 03/31/22 1537 Signed By: 03/31/22 1538 Normal [facility] CHEMISTRYOrdered By: Jenni Lazaro on 02-12-2022 HbA1c (Bld) [Mass fraction] 9.3 % High <=5.9% [facility] [place] ChemAutoSS Office Visit (Cardiology)on 01-15-2022 Follow-up visit Diagnoses/Problems Assessed Atherosclerosis of [place] coronary artery of [place] heart without angina pectoris (414.01) (I25.10) Status [...] vein thrombosis (453.40) (I82.409) Orders Atherosclerosis of [place] coronary artery of [place] heart without angina pectoris Renew: Aspirin EC [...] complications. 5. Diabetes, managed by endocrinology in [place]. A1c remains above target 6. Hypertension completely under control. 7. High-risk medication with Xarelto, so far well-tolerated. Takes baby aspirin twice weekly 8. Stage III chronic kidney disease to be monitored closely 9. Recent diagnosis of intermittent claudications and PAD followed by vascular surgery Dr. Daniel in [place], she is currently going through walking exercise program Fariha Guidry MD, [facility] Current Meds Medication NameInstruction amLODIPine Besylate [...] and no (more content not included)... Normal zoidu Tobacco Screening.on 022 Fall risk assessment a) No falls within the last year [facility] [employer] 600 DO Work Phone: Tobacco use status [facility] b) No [facility] [employer] 600 DO Work Phone: CHEMISTRYOrdered By: Lab ROP User on 01-06-2022 Glucose [Mass/Vol] 166 mg/dL High 55 - 99 mg/dL F[facility] C POC Subsection POC Device SN Invalid Interpretation Code [facility] POC Subsection POC User ID [id number] Invalid Interpretation Code [facility] POC Subsection POC Username ROSSY ZEPEDA Invalid Interpretation Code [facility] POC Subsection Glucose [Mass/Vol] 166 mg/dL High 55 - 99 mg/dL F[facility] C POC Subsection Comment on above: Result Comment: Rain evert Meter POC Device SN [id number] Invalid Interpretation Code [facility] POC Subsection POC User ID [id number] Invalid Interpretation Code [facility] POC Subsection POC Username ROXANA MILES Invalid Interpretation Code [facility] POC Subsection CHEMISTRYOrdered By: Lab ROP User on 01-01-2022 Glucose [Mass/Vol] 185 mg/dL High 55 - 99 mg/dL F[facility] C POC Subsection Comment on above: Result Comment: Rain evert Meter POC Device SN [id number] Invalid Interpretation Code [facility] POC Subsection POC User ID [id number] Invalid Interpretation Code [facility] POC Subsection POC [...] g/dL Normal 6.0 - 7.8 gm/dL [facility] Remisol Sodium [Moles/Vol] 138 mmol/L Normal [...] a) No falls within the last year -[facility] 600 DO Work Phone: Heart Rate Regular [facility] 600 DO Work Phone: Office [...] Vital Signs Recorded: 28May2021 12:25PMRecorded: 28May2021 12:21PM [id number], LUE, Vnqegda141, RUE, Sitting Bcsjifagd42, LUE, Mfafkig09, RUE, Sitting Heart Rate68, R Radial Pulse QualityRegular, R Radial Height5 ft 5 in [id number] lb 3.2 oz BMI Cihqxwkdcg00.98 kg/m2 BSA Calculated2 Fall Screeninga) No falls within the last year Signatures Electronically signed by : Fariha Guidry MD; May 28 2021 3:34PM EST (Author) Normal zoidu Laboratory - Chemistry and C hemistry - challengeon 05-11-2021 Cholesterol [Mass/Vol] 96 mg/dL Normal <=129 [facility] [employer] DO Work Phone: Cholesterol in LDL [Mass/Vol] 39 mg/dL Normal 7-40 [facility] [employer] DO Work Phone: CO2 [Moles/Vol] 24 mmol/L Normal 21-31 [facility] feliz [facility] DO Work Phone: Glucose [Mass/Vol] 217 mg/dL above high threshold 55-199 [facility] feliz [facility] DO Work Phone: Comment on above: If this glucose resu lt represents a fasting glucose, interpretation should refer to the following reference range: 55-99 mg/dL Laboratory - Hematology and Cell countson 05-11-2021 Erythrocyte distribution width (RBC) [Ratio] 13.2 % Normal 10.9-14.2 [facility] [employer] DO Work Phone: Hematocrit (Bld) [Volume fraction] 39.5 % Normal 34.0-46.0 [facility] [employer] DO Work Phone: Platelet mean volume (Bld) [Entitic vol] 11.0 fL above high threshold 6.4-10.8 [facility] [employer] feliz 250 DO Work Phone: No Panel Informationon 05-11 14 {mEq/L} Normal 6-16 [facility] [employer] feliz 250 DO Work Phone: 102 mmol/L Normal 101-111 [facility] feliz 250 DO Work Phone: [phone] 4.2 mmol/L Normal 3.5-5.3 [facility] feliz 250 DO Work Phone: 136 mmol/L Normal 135-145 [facility] [employer] feliz 250 DO Work Phone: 8.9 mg/dL Normal 8.9-11.1 [facility] [employer] feliz 250 DO Work Phone: 25 {No_Units} above high threshold 10-20 [facility] [employer] feliz 250 DO Work Phone: 1.0 mg/dL Normal 0.5-1.3 [facility] feliz 250 DO Work Phone: 25 mg/dL above high threshold 5-21 [facility] [employer] feliz 250 DO Work Phone: >60 Normal >=59 [facility] [employer] feliz 250 DO Work Phone: Comment on above: eGFR is race adjuste d. AA=. 55 {mL/min/1.73_m2} below low threshold >=59 [facility] feliz 250 DO Work Phone: Comment on above: Chronic kidney disea se could be indicated at eGFR's of less than 60 mL/min/1.73m2. Kidney failure is indicated at less than 15 mL/min/1.73m2. 54 {Int._Unit/L} above high threshold 6-46 [facility] [employer] feliz 250 DO Work Phone: 67 {Int._Unit/L} above high threshold 5-43 [facility] [employer] fel[employer] 250 DO Work Phone: 197 mg/dL above high threshold <=149 [facility] [employer] feliz 250 DO Work Phone: 49 mg/dL [facility] 250 DO Work Phone: Comment on above: HDL > or equal to 60 mg/dL: Low cardiovascular riskHDL < 40 mg/dL : High cardiovascular risk 193 mg/dL Normal 120-200 [facility] [employer] fel[employer] 250 DO Work Phone: 229.0 {E9/L} Normal 150.0-500.0 [facility] [employer] feliz 250 DO Work Phone: Comment on above: Slide reviewed by BR Platelet count verified using smear estimate. 85.4 fL Normal 80.0-100.0 [facility] feliz 250 DO Work Phone: 33.5 {gm/dL} Normal 31.4-36.0 [facility] [employer] feliz 250 DO Work Phone: 28.7 pg Normal 27.0-34.0 [facility] fel[facility] 250 DO Work Phone: 13.2 {gm/dL} Normal 12.0-16.0 [facility] 250 DO Work Phone: 4.6 {E12/L} Normal 4.3-5.9 [facility] 250 DO Work Phone: 6.7 {E9/L} Normal 4.0-11.0 [facility] 250 DO Work Phone: Office Visit (Cardiology)on 05-08-2021 Follow-up visit Diagnoses/Problems Assessed Atherosclerosis of [place] coronary artery of [place] heart without angina pectoris (414.01) (I25.10) Chronic kidney disease, stage 3 (585.3) (N18.30) Deep vein thrombosis (453.40) (I82.409) Essential hypertension (401.9) (I10) High risk medication use (V58.69) (Z79.899) Hyperlipidemia (272.4) (E78.5) Status post coronary angioplasty (V45.82) (Z98.61) Never a smoker Class 1 obesity with body mass index (BMI) of 34.0 to 34.9 in adult (278.00,V85.34) (E66.9,Z68.34) Orders Atherosclerosis of [place] coronary artery of [place] heart without angina pectoris Renew: Aspirin EC 81 MG Oral Tablet Delayed Release; TAKE ONE TABLET THURSDAY AND THURSDAY Renew: Losartan Potassium 50 MG Oral Tablet; TAKE 1 TABLET TWICE DAILY Atherosclerosis of [place] coronary artery of [place] heart without angina pectoris, Chronic kidney disease, stage 3, High risk medication use Basic Metabolic Panel; Status:Active - Retrospective Authorization; Requested for:[id number]; Complete Blood Count; Status:Active - Retrospective Authorization; Requested for:[id number]; Atherosclerosis of [place] coronary artery of [place] heart without angina pectoris, Essential hypertension Renew: Metoprolol Succinate ER 50 MG Oral Tablet Extended Release 24 Hour; TAKE 1 TABLET Daily Atherosclerosis of [place] coronary artery of [place] heart without angina pectoris, Hyperlipidemia ALT - Alanine Aminotransferase, Serum; Status:Active - Retrospective Authorization; Requested for:[id number]; AST; Status:Active - Retrospective Authorization; Requested for:[id number]; Lipid Panel; Status:Active - Retrospective Authorization; Requested for:[id number]; Class 1 obesity with body mass index (BMI) of 34.0 to 34.9 in adult Healthy Weight Tips; Status:Complete - Retrospective Authorization; Done: [id number] Deep vein thrombosis Start: Xarelto 10 MG Oral Tablet; Take 1 tablet daily Essential hypertension Start: amLODIPine Besylate 5 MG Oral Tablet (Norvasc); TAKE 1 TABLET DAILY SocHx: Never a smoker Tobacco Use Screening; Status:Complete; Done: [id number] Unlinked Stop: Xarelto 20 MG Oral Tablet [...] to be monitored closely Fariha Guidry MD, [facility] Surgical History Problems History of Angioplasty History of Cholecystectomy History of Colonoscopy History of Hysterectomy Past Medical History Problems History of angina pectoris (V12. (more content not included)... Normal zoidu Tobacco Screening.on 022 Adult depression screening assessment No [facility] [employer] 250 DO Work Phone: Fall risk assessment a) No falls within the last year [facility] [employer] feliz 250 DO Work Phone: Tobacco use status [facility] b) No [facility] [employer] feliz 250 DO Work Phone: Vital Signs Date Time Vital Sign Value Performing Clinician Facility 04-10-2023 09:19-0500 Body temperature 98.42 [degF] [facility] 04-10-2023 09:19-0500 Diastolic blood pressure 68 mm[Hg] [facility] 04-10-2023 09:19-0500 Heart rate 82 /min [facility] 04-10-2023 09:19-0500 Respiratory rate 16 /min [facility] 04-10-2023 09:19-0500 SaO2% (BldA) [Mass fraction] 97 % [facility] 04-10-2023 09:19-0500 Systolic blood pressure 168 mm[Hg] [facility] 03-20-2023 09:00-0500 Blood Pressure Location Christopher GLOLE [facility] 03-20-2023 09:00-0500 Body temperature 98.42 [degF] Christopher KAPLE [facility] 03-20-2023 09:00-0500 Diastolic blood pressure 80 mm[Hg] Christopher KAPLE [facility] 03-20-2023 09:00-0500 Heart rate 70 /min Christopher KAPLE [facility] 03-20-2023 09:00-0500 Respiratory rate 16 /min Christopher KAPLE [facility] 03-20-2023 09:00-0500 SaO2% (BldA) [Mass fraction] 99 % Christopher RUSSELL [facility] 03-20-2023 09:00-0500 Systolic blood pressure 132 mm[Hg] Christopher RUSSELL [facility] 03-04-2023 09:09-0500 Heart rate 80 /min Nicola Tapia [facility] 03-04-2023 09:09-0500 SaO2% (BldA) [Mass fraction] 99 % Nicola Tapia [facility] 03-04-2023 09:09-0500 Diastolic blood pressure 67 mm[Hg] Nicola Tapia [facility] 03-04-2023 09:09-0500 Mean blood pressure 91 mm[Hg] Nicola Tapia [facility] 03-04-2023 09:09-0500 Systolic blood pressure 138 mm[Hg] Nicola Tapia [facility] 03-04-2023 09:09-0500 Respiratory rate 16 /min Nicola Tapia [facility] 03-04-2023 09:04-0500 Diastolic blood pressure 96 mm[Hg] Nicola Tapia [facility] 03-04-2023 09:04-0500 Heart rate 84 /min Nicola Tapia [facility] 03-04-2023 09:04-0500 SaO2% (BldA) [Mass fraction] 98 % Nicola Tapia [facility] 03-04-2023 09:04-0500 Systolic blood pressure 165 mm[Hg] Nicola Tapia [facility] 03-04-2023 08:12-0500 Heart rate 82 /min Nicola Tapia [facility] 03-04-2023 08:12-0500 SaO2% (BldA) [Mass fraction] 97 % Nicola Tapia [facility] 03-04-2023 08:12-0500 Diastolic blood pressure 75 mm[Hg] Nicola Tapia [facility] 03-04-2023 08:12-0500 Mean blood pressure 103 mm[Hg] Nicola Tapia [facility] 03-04-2023 08:12-0500 Systolic blood pressure 159 mm[Hg] Nicola Tapia [facility] 03-04-2023 08:12-0500 Body temperature 98.42 [degF] Nicola Tapia [facility] 03-04-2023 08:11-0500 Respiratory rate 14 /min Nicola Tapia [facility] 03-03-2023 11:45-0500 Body height 165.1 cm Miguel Membreno Other [employer] Other 03-03-2023 11:45-0500 Body mass index (BMI) [Ratio] 33.28 kg/m2 Miguel Membreno Other [employer] Other 03-03-2023 11:45-0500 Body temperature 97.8 [degF] Miguel Membreno Other [employer] Other 03-03-2023 11:45-0500 Body weight 90.72 kg Miguel Membreno Other [employer] Other 03-03-2023 11:45-0500 Diastolic blood pressure 72 mm[Hg] Miguel Membreno Other [employer] Other 03-03-2023 11:45-0500 SaO2% (BldA) [Mass fraction] 96 % Miguel Membreno Other [facility] [employer] Other 03-03-2023 11:45-0500 Systolic blood pressure 124 mm[Hg] Miguel Membreno Other [facility] [employer] Other 02-18-2023 13:40-0500 Diastolic blood pressure 70 mm[Hg] DO Christopher Kaple Work Phone: [facility] 02-18-2023 13:40-0500 Heart rate 64 /min DO Christopher Kaple Work Phone: [facility] 02-18-2023 13:40-0500 Respiratory rate 16 /min DO Christopher Kaple Work Phone: [facility] 02-18-2023 13:40-0500 SaO2% (BldA) [Mass fraction] 98 % DO Christopher Kaple Work Phone: [facility] 02-18-2023 13:40-0500 Systolic blood pressure 169 mm[Hg] DO Christopher Kaple Work Phone: [facility] 02-18-2023 12:40-0500 Inhaled oxygen flow rate 1 L/min DO Christopher Kaple Work Phone: [facility] 02-18-2023 09:15-0500 Body height 165.1 cm DO Christopher Kaple Work Phone: [facility] 02-18-2023 09:15-0500 Body weight 97.52 kg DO Christopher Kaple Work Phone: [facility] 02-16-2023 13:23-0500 Heart rate 76 /min Gary Prashant [facility] 02-16-2023 13:23-0500 SaO2% (BldA) [Mass fraction] 96 % Gary Prashant [facility] 02-16-2023 13:22-0500 Diastolic blood pressure 80 mm[Hg] Gary Cerda [facility] 02-16-2023 13:22-0500 Mean blood pressure 105 mm[Hg] Gary Cerda [facility] 02-16-2023 13:22-0500 Systolic blood pressure 155 mm[Hg] Gary Cerda [facility] 02-16-2023 13:22-0500 Body temperature 97.7 [degF] Gary Cerda [facility] 02-16-2023 13:21-0500 Respiratory rate 16 /min Gary Cerda [facility] 02-12-2023 09:03-0500 Body height 165.1 cm Fariha Guidry MD Work Phone: [facility] 02-12-2023 09:03-0500 Body mass index (BMI) [Ratio] 35.78 kg/m2 Fariha Guidry MD Work Phone: [facility] 02-12-2023 09:03-0500 Body weight 97.52 kg Fariha Guidry MD Work Phone: [facility] 02-12-2023 09:03-0500 Diastolic blood pressure 64 mm[Hg] Fariha Guidry MD Work Phone: [facility] 02-12-2023 09:03-0500 Heart rate 64 /min Fariha Guidry MD Work Phone: [facility] 02-12-2023 09:03-0500 Systolic blood pressure 120 mm[Hg] Fariha Guidry MD Work Phone: [facility] 01-26-2023 08:00-0500 Blood Pressure Location Christopher WELLS [facility] 01-26-2023 08:00-0500 Body temperature 98.6 [degF] Christopher KAPLE [facility] 01-26-2023 08:00-0500 Diastolic blood pressure 72 mm[Hg] Christopher KAPLE [facility] 01-26-2023 08:00-0500 Heart rate 65 /min Christopher KAPLE [facility] 01-26-2023 08:00-0500 SaO2% (BldA) [Mass fraction] 96 % Christopher KAPLE [facility] 01-26-2023 08:00-0500 Systolic blood pressure 124 mm[Hg] Christopher KAPLE [facility] 01-06-2023 08:13-0400 Diastolic blood pressure 78 mm[Hg] Gary Prashant [facility] 01-06-2023 08:13-0400 Heart rate 69 /min Gary Prashant [facility] 01-06-2023 08:13-0400 Mean blood pressure 107 mm[Hg] Gary Prashant [facility] 01-06-2023 08:13-0400 Respiratory rate 14 /min Gary Prashant [facility] 01-06-2023 08:13-0400 Systolic blood pressure 166 mm[Hg] Gary Prashant [facility] 01-05-2023 09:15-0400 Body height 165.1 cm Miguel Membreno Other [employer] Other 01-05-2023 09:15-0400 Body mass index (BMI) [Ratio] 33.28 kg/m2 Miguel Buehrer Other [employer] Other 01-05-2023 09:15-0400 Body temperature 96.3 [degF] Miguel Buehrer Other [employer] Other 01-05-2023 09:15-0400 Body weight 90.72 kg Miguel Maierehrer Other [employer] Other 01-05-2023 09:15-0400 Diastolic blood pressure 62 mm[Hg] Miguel Buehrer Other [employer] Other 01-05-2023 09:15-0400 SaO2% (BldA) [Mass fraction] 97 % Miguel Buehrer Other [employer] Other 01-05-2023 09:15-0400 Systolic blood pressure 120 mm[Hg] Miguel Buehrer Other [employer] Other 11-04-2022 12:00-0400 Body height 165.1 cm Miguel Martinezrer Other [employer] Other 11-04-2022 12:00-0400 Body mass index (BMI) [Ratio] 33.28 kg/m2 Miguel Maierehrer Other [employer] Other 11-04-2022 12:00-0400 Body temperature 97.1 [degF] Miguel Buehrer Other [employer] Other 11-04-2022 12:00-0400 Body weight 90.72 kg Miguel Maierehrer Other [employer] Other 11-04-2022 12:00-0400 Diastolic blood pressure 70 mm[Hg] Miguel Butcherr Other [employer] Other 11-04-2022 12:00-0400 SaO2% (BldA) [Mass fraction] 95 % Miguel Membreno Other [employer] Other 11-04-2022 12:00-0400 Systolic blood pressure 140 mm[Hg] Miguel Membreno Other [employer] Other 11-03-2022 10:30-0400 Body height 165.1 cm Renetta Barahona Other [employer] Other 11-03-2022 10:30-0400 Body mass index (BMI) [Ratio] 33.28 kg/m2 Renetta Barahona Other [employer] Other 11-03-2022 10:30-0400 Body temperature 97.6 [degF] Renetta Barahona Other [employer] Other 11-03-2022 10:30-0400 Body weight 90.72 kg Renetta Barahona Other [employer] Other 11-03-2022 10:30-0400 Diastolic blood pressure 76 mm[Hg] Renetta Barahona Other [employer] Other 11-03-2022 10:30-0400 SaO2% (BldA) [Mass fraction] 98 % Renetta Barahona Other [employer] Other 11-03-2022 10:30-0400 Systolic blood pressure 116 mm[Hg] Renetta Barahona Other [facility] [employer] Other 09-10-2022 08:12-0400 Blood Pressure Location Lindajahaira MeltonOsmin [facility] 09-10-2022 08:12-0400 Body temperature 96.8 [degF] Linda Osmin [facility] 09-10-2022 08:12-0400 Diastolic blood pressure 71 mm[Hg] Linda Osmin [facility] 09-10-2022 08:12-0400 Heart rate 56 /min Linda Osmin [facility] 09-10-2022 08:12-0400 Systolic blood pressure 118 mm[Hg] Linda Osmin [facility] 06-11-2022 09:10-0400 Diastolic blood pressure 70 mm[Hg] Linda Osmin [facility] 06-11-2022 09:10-0400 Mean blood pressure 92 mm[Hg] Linda Osmin [facility] 06-11-2022 09:10-0400 Systolic blood pressure 136 mm[Hg] Linda Osmin [facility] 06-11-2022 09:04-0400 Blood Pressure Location Linda Osmin [facility] 06-11-2022 09:04-0400 Body temperature 97.88 [degF] Linda Osmin [facility] 06-11-2022 09:04-0400 Diastolic blood pressure 75 mm[Hg] Linda Osmin [facility] 06-11-2022 09:04-0400 Heart rate 66 /min Linda Solorio [facility] 06-11-2022 09:04-0400 Systolic blood pressure 155 mm[Hg] Linda Solorio [facility] 05-05-2022 09:45-0500 Body height 165.1 cm Miguel Membreno Other [employer] Other 05-05-2022 09:45-0500 Body mass index (BMI) [Ratio] 33.28 kg/m2 Miguel Membreno Other [employer] Other 05-05-2022 09:45-0500 Body temperature 96.2 [degF] Miguel Membreno Other [employer] Other 05-05-2022 09:45-0500 Body weight 90.72 kg Miguel Membreno Other [employer] Other 05-05-2022 09:45-0500 Diastolic blood pressure 60 mm[Hg] Miguel Membreno Other [employer] Other 05-05-2022 09:45-0500 SaO2% (BldA) [Mass fraction] 97 % Miguel Membreno Other [employer] Other 05-05-2022 09:45-0500 Systolic blood pressure 112 mm[Hg] Miguel Membreno Other [employer] Other 04-07-2022 20:00-0500 Diastolic blood pressure 80 mm[Hg] DO Christopher Wells Work Phone: [facility] 04-07-2022 20:00-0500 Heart rate 70 /min DO Christopher Kaple Work Phone: [facility] 04-07-2022 20:00-0500 Respiratory rate 18 /min DO Christopher Kaple Work Phone: [facility] [facility] 04[facility]07[facility]22 20:00-0500 SaO2% (BldA) [Mass fraction] 98 % DO Christopher Kaple Work Phone: [facility] 04-07-2022 20:00-0500 Systolic blood pressure 159 mm[Hg] DO Christopher Kaple Work Phone: [facility] 04-07-2022 17:05-0500 Body temperature 98.1 [degF] DO Christopher Kaple Work Phone: [facility] 04-07-2022 16:20-0500 Inhaled oxygen flow rate 2 L/min DO Christopher Kaple Work Phone: [facility] 04-07-2022 13:53-0500 Body height 165.1 cm DO Christopher Kaple Work Phone: [facility] 04-07-2022 13:53-0500 Body weight 90.71 kg DO Christopher Kaple Work Phone: [facility] 03-31-2022 10:15-0500 Body height 165.1 cm Renetta Barahona Other [employer] Other 03-31-2022 10:15-0500 Body mass index (BMI) [Ratio] 33.28 kg/m2 Renetta Barahona Other [employer] Other 03-31-2022 10:15-0500 Body temperature 98.7 [degF] Renetta Barahona Other [employer] Other 03-31-2022 10:15-0500 Body weight 90.72 kg Renetta Barahona Other [employer] Other 03-31-2022 10:15-0500 Diastolic blood pressure 82 mm[Hg] Renetta Barahona Other [employer] Other 03-31-2022 10:15-0500 SaO2% (BldA) [Mass fraction] 98 % Renetta Barahona Other [employer] Other 03-31-2022 10:15-0500 Systolic blood pressure 136 mm[Hg] Renetta Barahona Other [employer] Other 01-27-2022 12:00-0500 Body height 165.1 cm Miguel Membreno Other [employer] Other 01-27-2022 12:00-0500 Body mass index (BMI) [Ratio] 33.28 kg/m2 Miguel Martinezremelissa Other [employer] Other 01-27-2022 12:00-0500 Body temperature 97.7 [degF] Miguel Martinezrer Other [employer] Other 01-27-2022 12:00-0500 Body weight 90.72 kg Miguel Buehrer Other [employer] Other 01-27-2022 12:00-0500 Diastolic blood pressure 70 mm[Hg] Miguel Maierehrer Other [employer] Other 01-27-2022 12:00-0500 SaO2% (BldA) [Mass fraction] 98 % Miguel Martinezrer Other [employer] Other 01-27-2022 12:00-0500 Systolic blood pressure 142 mm[Hg] Miguel Membreno Other [employer] Other 01-15-2022 10:29-0400 Body height 165.1 cm Christopher Wells Work Phone: [employer] [facility] 600 DO Work Phone: 01-15-2022 10:29-0400 Body mass index (BMI) [Ratio] 34.95 kg/m2 Christopher Wells Work Phone: [employer] [facility] [employer] 600 DO Work Phone: 01-15-2022 10:29-0400 Body surface area Derived from formula 2.02 m2 Christopher Wells Work Phone: [employer] [facility] [employer] 600 DO Work Phone: 01-15-2022 10:29-0400 Body weight 95.26 kg Christopher Wells Work Phone: [employer] [facility] [employer] 600 DO Work Phone: 01-15-2022 10:29-0400 Diastolic blood pressure 60 mm[Hg] Christopher Wells Work Phone: [employer] [facility] [employer] 600 DO Work Phone: 01-15-2022 10:29-0400 Heart rate 68 /min Christopher Wells Work Phone: [employer] [facility] [employer] 600 DO Work Phone: 01-15-2022 10:29-0400 Systolic blood pressure 116 mm[Hg] Christopher Wells Work Phone: [employer] [facility] [employer] 600 DO Work Phone: 11-28-2021 15:19-0400 Blood Pressure Location [facility] 11-28-2021 15:19-0400 Diastolic blood pressure 69 mm[Hg] [facility] 11-28-2021 15:19-0400 Heart rate 61 /min [facility] 11-28-2021 15:19-0400 Respiratory rate 18 /min [facility] 11-28-2021 15:19-0400 SaO2% (BldA) [Mass fraction] 98 % [facility] 11-28-2021 15:19-0400 Systolic blood pressure 132 mm[Hg] [facility] 10-28-2021 09:56-0400 Blood Pressure Location Mohlucio Fred[facility] 10-28-2021 09:56-0400 Diastolic blood pressure 72 mm[Hg] [facility] 10-28-2021 09:56-0400 Heart rate 76 /min [facility] 10-28-2021 09:56-0400 SaO2% (BldA) [Mass fraction] 96 % [facility] 10-28-2021 09:56-0400 Systolic blood pressure 120 mm[Hg] [facility] 05-28-2021 12:25-0400 Diastolic blood pressure 64 mm[Hg] Christopher Wells Work Phone: [facility] 600 DO Work Phone: 05-28-2021 12:25-0400 Systolic blood pressure 130 mm[Hg] Christopher Wells Work Phone: [facility] 600 DO Work Phone: 05-28-2021 12:21-0400 Body height 165.1 cm Christopher Wells Work Phone: [facility] 600 DO Work Phone: 05-28-2021 12:21-0400 Body mass index (BMI) [Ratio] 33.98 kg/m2 Christopher Bale Work Phone: [facility] 600 DO Work Phone: 05-28-2021 12:21-0400 Body surface area Derived from formula 2 m2 Christopher Wells Work Phone: [facility] 600 DO Work Phone: 05-28-2021 12:21-0400 Body weight 92.63 kg Christopher Wells Work [facility]: [facility] 600 DO Work Phone: 05-28-2021 12:21-0400 Diastolic blood pressure 76 mm[Hg] Christopher Wells Work Phone: [facility] 600 DO Work Phone: 05-28-2021 12:21-0400 Heart rate 68 /min Christopher Wells Work Phone: [facility] 600 DO Work Phone: 05-28-2021 12:21-0400 Systolic blood pressure 140 mm[Hg] Christopher Wells Work Phone: [facility] 600 DO Work Phone: 05-08-2021 11:36-0500 Diastolic blood pressure 90 mm[Hg] Christopher Wells Work Phone: [facility] 250 DO Work Phone: 05-08-2021 11:36-0500 Systolic blood pressure 180 mm[Hg] Christopher Wells Work Phone: [facility] 250 DO Work Phone: 05-08-2021 11:20-0500 Body height 165.1 cm Christopher Wells Work Phone: [facility] 250 DO Work Phone: 05-08-2021 11:20-0500 Body mass index (BMI) [Ratio] 34.11 kg/m2 Christopher Bale Work Phone: [facility] 250 DO Work Phone: 05-08-2021 11:20-0500 Body surface area Derived from formula 2 m2 Christopher Wells Work Phone: [facility] 250 DO Work Phone: 05-08-2021 11:20-0500 Body weight 92.99 kg Christopher Wells Work Phone: [facility] 250 DO Work Phone: 05-08-2021 11:20-0500 Diastolic blood pressure 90 mm[Hg] Christopher Wells Work Phone: [facility] 250 DO Work Phone: 05-08-2021 11:20-0500 Heart rate 68 /min Christopher Wells Work Phone: [facility] 250 DO Work Phone: 05-08-2021 11:20-0500 Systolic blood pressure 142 mm[Hg] Christopher Wells Work Phone: [facility] 250 DO Work Phone: Encounters Encounter Date Encounter Type Care Provider Facility Start: 04-10-2023 End: 04-10-2023 Emergency department patient visit Malvin Gu[place] [place]: 04-10-2023 End: 04-10-2023 Emergency department patient visit Malvin Gupta [facility] Start: 03-23-2023 End: 03-24-2023 ambulatory Mara Dawit [place] [place] Start: 03-20-2023 End: 03-21-2023 ambulatory Christopher WELLS Facility:[place] Start: 03-20-2023 End: 03-20-2023 Patient encounter procedure Christopher WELLS [facility] Start: 03-18-2023 End: 03-18-2023 ambulatory DENTON D DOLCE Not Available Start: 03-04-2023 End: 03-05-2023 ambulatory DO Nicola Tapia [place] [place] Start: 03-04-2023 End: 03-04-2023 Pain Management Nicola Tapia [facility] Start: 03-03-2023 End: 03-03-2023 Patient encounter procedure Denton D Angelyce [facility] Start: 03-03-2023 End: 03-04-2023 ambulatory Denton D Dolce [facility] [employer] Other Start: 03-03-2023 Office outpatient vi sit 25 minutes Miguel CHOI [facility] Start: 03-02-2023 End: 03-03-2023 ambulatory Linda Solorio Facility:[facility] Start: 03-02-2023 End: 03-02-2023 Patient encounter procedure Linda Solorio [facility] Start: 02-24-2023 End: 02-25-2023 ambulatory Denton D Dolce [place] [place] Start: 02-20-2023 End: 02-20-2023 ambulatory DENTON D DOLCE Not Available Start: 02-19-2023 End: 04-10-2023 ambulatory Christopher WELLS Facility:[id number] Start: 02-18-2023 End: 02-18-2023 ambulatory Miguel Membreno Facility:[facility] Start: 02-18-2023 End: 02-18-2023 Admission to same day surgery center DO Christopher Wells Work Phone: [facility] Work Phone: Start: 02-18-2023 End: 02-18-2023 ambulatory DO Christopher Wells Work Phone: [facility] Work Phone: Start: 02-16-2023 End: 02-17-2023 ambulatory MD Gary Cerda [place] [place] Start: 02-16-2023 End: 02-16-2023 Pain Management Gary Cerda [facility] Start: 02-16-2023 End: 02-17-2023 ambulatory Denton Mares [place] [place] Start: 02-16-2023 End: 02-16-2023 Patient encounter procedure Denton Mares [facility] Start: 02-12-2023 End: 02-12-2023 ambulatory [facility] Ambulatory Start: 02-12-2023 End: 02-12-2023 Office outpatient visit 25 minutes Fariha Guidry MD Work Phone: [facility] Comment on above: Atherosclerosis of n ative coronary artery of [place] heart without angina pectoris; Status post coronary angioplasty; Essential hypertension; Hyperlipidemia, unspecified hyperlipidemia type; PVD (peripheral vascular disease) ([facility]/HCC); Stage 3 chronic kidney disease, unspecified whether stage 3a or 3b CKD (CMS/HCC); Sleep apnea, unspecified type Start: 02-10-2023 End: 02-11-2023 ambulatory Denton aMres [place] [place] Start: 02-10-2023 End: 02-10-2023 Patient encounter procedure Denton Mares [facility] Start: 01-27-2023 End: 01-28-2023 ambulatory Denton Mares [employer] Other Start: 01-27-2023 Telephone encounter Miguel Membreno [facility] Start: 01-27-2023 End: 01-27-2023 Patient encounter procedure Denton Mares [facility] Start: 01-26-2023 End: 01-27-2023 ambulatory Christopher WELLS Facility:[facility] Start: 01-26-2023 End: 01-26-2023 Patient encounter procedure Christopher WELLS [facility] Start: 01-26-2023 End: 01-26-2023 Well adult monitoring check done Christopher WELLS [facility] Start: 01-19-2023 End: 01-20-2023 ambulatory Denton Mares [place] [place] Start: 01-19-2023 End: 01-19-2023 Patient encounter procedure Denton Mares [facility] Start: 01-13-2023 End: 01-14-2023 ambulatory Denton Gomez Angelygreg [place] [place] Start: 01-13-2023 End: 01-13-2023 Patient encounter procedure Denton Mares [facility] Start: 01-06-2023 End: 01-07-2023 ambulatory MD Gary Cerda [place] [place] Start: 01-06-2023 End: 01-06-2023 Pain Management Gary Cerda [facility] Start: 01-05-2023 End: 01-05-2023 ambulatory Miguel Membreno Other [employer] Other Start: 01-05-2023 Office outpatient vi sit 25 minutes Miguel Membreno [facility] Start: 12-31-2022 End: 01-01-2023 ambulatory Catrachito Wolf [place] [place] Start: 12-31-2022 End: 12-31-2022 Patient encounter procedure Catrachito Wolf [facility] Start: 12-22-2022 End: 12-23-2022 ambulatory Denton Jason Mares [place] [place] Start: 12-18-2022 End: 12-19-2022 ambulatory Christopher A RUSSELL Facility:[place] [facility] Start: 12-08-2022 End: 12-09-2022 ambulatory Catrachito Wolf [place] [place] Start: 12-08-2022 End: 12-08-2022 Patient encounter procedure Catrachito Wolf [facility] Start: 11-24-2022 End: 11-25-2022 ambulatory Christopher WELLS [place] [place] Start: 11-24-2022 End: 11-24-2022 Patient encounter procedure Christopher A RUSSELL [facility] Start: 11-06-2022 End: 11-07-2022 ambulatory Christopher WELLS Facility:[place] Start: 11-04-2022 Office outpatient vi sit 25 minutes Miguel Membreno [facility] Start: 11-04-2022 End: 11-04-2022 ambulatory DO Christopher Wells Work Phone: [facility] [employer] Other Start: 11-04-2022 End: 11-04-2022 Patient encounter procedure DO Christopher Wells Work Phone: [facility] Start: 11-03-2022 Follow-up encounter Renetta Musa [facility] Start: 11-03-2022 End: 11-03-[address] [facility] [employer] Other Start: 11-03-2022 End: 11-03-2022 Patient encounter procedure DO Christopher Wells Work Phone: [facility] Start: 10-31-2022 End: 11-01-2022 ambulatory Klaus Akkina [place] [place] Start: 10-31-2022 End: 10-31-2022 Patient encounter procedure Klaus Akkina [facility] Start: 09-18-2022 Chart Update Christopher Wells Work Phone: [facility] 250 DO Work Phone: Start: 09-17-[address] Christopher Wells [facility] ity:[id number] Start: 09-10-2022 End: 09-11-2022 ambulatory Linda Solorio Facility:[facility] Start: 09-10-2022 End: 09-10-2022 Patient encounter procedure Linda Solorio [facility] Start: 08-01-2022 End: 08-02-2022 ambulatory Fariha Delucaim [place] [place] Start: 07-23-2022 Rx Renewal Christopher Wells Work Phone: [facility] 250 DO Work Phone: Start: 06-13-2022 Rx Renewal Christopher Wells [facility] Work Phone: Start: 06-11-2022 End: 06-12-2022 ambulatory Linda Solorio [facility] Start: 06-11-2022 End: 06-11-2022 Patient encounter procedure Linda Solorio [facility] Start: 05-21-2022 End: 05-22-2022 ambulatory Luis BENSON [place] [place] Start: 05-08-2022 End: 05-09-2022 ambulatory Linda Solorio [place] [place] Start: 05-08-2022 End: 05-08-2022 Lab Drop off Linda Solorio [facility] Start: 05-05-2022 End: 05-06-[address] [facility] [employer] Other Start: 05-05-2022 Office outpatient vi sit 25 minutes Miguel Membreno [facility] Start: 04-08-2022 End: 04-08-2022 ambulatory Renetta Barahona Other [facility] [employer] Other Start: 04-08-2022 Telephone encounter Renetta Musa [facility] Start: 04-07-2022 End: 04-07-2022 ambulatory Miguel Membreno Facility:[facility] Start: 04-07-2022 End: 04-07-2022 Admission to same day surgery center DO Christopher Wells Work Phone: [facility] Work Phone: Start: 04-07-2022 End: 04-07-2022 ambulatory DO Christopher Montenegro Kapjanna Work Phone: [facility] Work Phone: Start: 03-31-2022 Follow-up encounter Renetta Musa [facility] Start: 03-31-2022 End: 03-31-2022 ambulatory Miguel Membreno Facility:[facility] Start: 03-31-2022 End: 03-31-2022 ambulatory DO Christopher A Kapjanna Work Phone: [facility] Work Phone: Start: 03-31-2022 End: 03-31-2022 Patient encounter procedure DO Christopher Kaple Work Phone: [facility] Start: 03-31-2022 End: 03-31-2022 Patient encounter procedure Klaus Núñez [facility] Start: 02-12-2022 End: 02-12-2022 Patient encounter procedure Christopher WELLS [facility] Start: 01-27-2022 End: 01-27-2022 ambulatory Miguel Membreno Other [facility] [employer] Other Start: 01-27-2022 Office outpatient ne w 45 minutes Miguel Membreno [facility] Start: 01-15-[address] Fariha [facility] Facility: Start: 01-15-2022 Office outpatient vi sit 25 minutes Christopher Wells Work Phone: [facility] 600 DO Work Phone: Start: 12-31-2021 End: 06-01-2022 Recurring [facility] Start: 11-28-2021 End: 11-28-2021 Patient encounter procedure Charis Daniel [facility] Start: 11-12-2021 Rx Renewal Christopher Wells Work Phone: [facility] 250 DO Work Phone: Start: 10-28-2021 Rx Renewal [facility] Work Phone: Start: 10-28-2021 End: 10-28-2021 Patient encounter procedure Charis Daniel [facility] Start: 10-01-2021 End: 10-01-2021 Patient encounter procedure Christopher WELLS [facility] Start: 09-24-2021 End: 09-24-2021 Patient encounter procedure Christopher WELLS [facility] Start: 08-08-2021 End: 08-08-2021 Patient encounter procedure Christopher WELLS [facility] Start: 07-30-2021 Rx Renewal Christopher Wells Work Phone: [facility] 250 DO Work Phone: Start: 06-12-2021 End: 01-13-2022 Recurring Christopher WELLS [facility] Start: 05-28-2021 Office outpatient vi sit 10 minutes Christopher Wells Work Phone: [facility] 600 DO Work Phone: Start: 05-28-2021 ambulatory Christopher Wells Facility: Start: 05-12-2021 Chart Update Christopher Wells [facility] Work Phone: Start: 05-08-2021 ambulatory [...] 05-21-2032 Screening for malignant neoplasm of colon [facility] Start: 05-09-2025 DTaP/Tdap/Td Vaccines (2 - Td or Tdap) DTaP/Tdap/Td Vaccines (2 - Td or Tdap) [facility] Start: 02-01-2024 ambulatory Ambulatory Facility:[facility] Start: 07-28-2023 ambulatory Ambulatory Facility:[facility] Start: 02-18-2023 US Lower extremity veins - bilateral [facility] Start: 02-18-2023 US scan venography of lower limbs US venous mapping BI [facility] Start: 02-18-2023 [facility] Start: 02-12-2023 End: 02-13-2024 Alanine aminotransferase [Enzymatic activity/volume] in Serum or Plasma by With P-5'-P Alanine Aminotransferase Lab Routine Atherosclerosis of [place] coronary artery of [place] heart without angina pectoris Hyperlipidemia, unspecified hyperlipidemia type Expected: 02/12/2023 (Approximate), Expires: 02/13/2024 [facility] Service Area Work Phone: Comment on above: Expected: 02/12/2023 (Approximate), Expi res: 02/13/2024 Start: 02-12-2023 End: 02-13-2024 Aspartate aminotransferase [Enzymatic activity/volume] in Serum or Plasma by With P-5'-P Aspartate Aminotransferase Lab Routine Atherosclerosis of [place] coronary artery of [place] heart without angina pectoris Hyperlipidemia, unspecified hyperlipidemia type Expected: 02/12/2023 (Approximate), Expires: 02/13/2024 [facility] Work Phone: Comment on above: Expected: 02/12/2023 (Approximate), Expi res: 02/13/2024 Start: 02-12-2023 End: 02-13-2024 Lipid 1996 panel - Serum or Plasma Lipid Panel Lab Routine Atherosclerosis of [place] coronary artery of [place] heart without angina pectoris Hyperlipidemia, unspecified hyperlipidemia type Expected: 02/12/2023 (Approximate), Expires: 02/13/2024 [facility] Work Phone: Comment on above: Expected: 02/12/2023 (Approximate), Expi res: 02/13/2024 Start: 02-12-2023 FUV, Provider: Fariha Guidry, Status: Pen, Time: 9:00 AM FUV, Provider: Fariha Guidry, Status: Pen, Time: 9:00 AM [facility] Work Phone: Start: 11-14-2022 Influenza vaccination Influenza Vaccine (#1) [facility] Start: 07-30-2022 FUV, Provider: Fariha Guidry, Status: Pen, Time: 8:40 AM FUV, Provider: Fariha Guidry, Status: Pen, Time: 8:40 AM [facility] Work Phone: Start: 04-07-2022 [facility] Start: 02-12-2022 COVID-19 Vaccine (4 - Booster for Luca series) COVID-19 Vaccine (4 - Booster for Luca series) 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 Start: 06-25-1967 Diabetes mellitus screening Diabetes Screening [facility] Start: 06-25-1967 Hepatitis C screening Hepatitis C Screening [facility] Start: 1949 Lipid panel Lipid Panel [facility] Start: 1949 Medicare Annual Wellness Visit Medicare Annual Wellness Visit (AWV) [facility] Start: 1949 Screening for malignant neoplasm of colon [facility] Start: 1949 Screening for osteoporosis Bone Density Scan [facility] Patient Education [facility] Work Phone: Patient referral [facility] Work Phone: Immunizations Immunization Date Immunization Notes Care Provider Fa cility 12-18-2021 Fluad Quadrivalent 0 .5 ML Intramuscular Prefilled Syringe Christopher Wells Work Phone: [facility] 600 DO Work Phone: 12-18-2021 influenza virus vaccine, unspecified formulation Christopher WELLS [facility] 12-18-2021 Pfizer COVID-19 Vac Bivalent 30 MCG/0.3ML Intramuscular Suspension Christopher Wells Work Phone: [facility] 600 DO Work Phone: 12-18-2021 SARS-CoV-2 (COVID-19 ) mRNA BNT-[id number] vax Christopher WELLS [facility] 03-26-2021 Fluzone High-Dose Quadrivalent 0.7 ML Intramuscular Suspension Prefilled Syringe Christopher Wells Work Phone: [facility] 250 DO Work Phone: 03-26-2021 influenza virus vaccine, unspecified formulation Christopher WELLS [facility] 03-26-2021 Pfizer-BioNTech COVID-19 Vacc 30 MCG/0.3ML Intramuscular Suspension Christopher Wells Work Phone: [facility] 250 DO Work Phone: 05-19-2020 Luca COVID-19 Vaccine 0.5 ML Intramuscular Suspension Christopher Wells Work Phone: [facility] 250 DO Work Phone: 05-18-2020 COVID-19 vaccine, vector-nr, [id number], PF, 0.5 mL; Translations: [Luca COVID-19 Vaccine] Christopher WELLS [facility] Comment on above: Reason for Medicatio n: Prophylaxis Reason for Medicatio n: Prophylaxis 02-23-2020 zoster vaccine recombinant Christopher Wells Work Phone: [facility] 250 DO Work Phone: 01-05-2020 Fluad Quadrivalent 0 .5 ML Intramuscular Prefilled Syringe Christopher Wells Work Phone: [facility] 250 DO Work Phone: 01-05-2020 influenza virus vaccine, unspecified formulation Christopher WELLS [facility] 12-28-2019 influenza, high dose seasonal, preservative-free Christopher Wells Work Phone: [place] [phone] DO Work Phone: 12-15-2019 influenza virus vaccine, unspecified formulation Christopher WELLS [facility] 11-15-2019 zoster vaccine recombinant Christopher Wells Work Phone: [place] [phone] DO Work Phone: 11-15-2019 zoster vaccine, live Christopher MARTI [facility] 12-20-2018 influenza, high dose seasonal, preservative-free Christopher WELLS [facility] 12-14-2018 influenza virus vaccine, unspecified formulation Christopher WELLS [facility] 12-14-2018 influenza, high dose seasonal, preservative-free Christopher Wells Work Phone: [place] [phone] DO Work Phone: 12-14-2018 pneumococcal polysaccharide vaccine, 23 valent Christopher Wells Work Phone: [place] [address] DO Work Phone: 02-16-2018 influenza virus vaccine, unspecified formulation Christopher WELLS [facility] 02-16-2018 Influenza, injectabl e, Madin Milly Canine Kidney, preservative free, quadrivalent Christopher Wells Work Phone: [place] [phone] DO Work Phone: 02-16-2018 pneumococcal conjuga te vaccine, 13 valent Christopher Moni Russell Work Phone: [place] [address] DO Work Phone: 11-14-2017 influenza virus vaccine, unspecified formulation Christopher Montenegro Russell Work Phone: [place] [address] DO Work Phone: 11-27-2016 influenza virus vaccine, unspecified formulation Christopher RUSSELL [facility] 11-27-2016 influenza, high dose seasonal, preservative-free Christopher aBjanna Work Phone: [place] [address] DO Work Phone: 01-21-2016 influenza virus vaccine, unspecified formulation Christopher BAJANNA [facility] 01-21-2016 influenza, high dose seasonal, preservative-free Christopher Bajanna Work Phone: [place] [phone] DO Work Phone: 05-09-2015 tetanus toxoid, redu louise diphtheria toxoid, and acellular pertussis vaccine, adsorbed Christopher Bajanna Work Phone: [place] [address] DO Work Phone: 02-26-2009 novel [id number], preservative-free, injectable Christopher Bajanna Work Phone: [place] [address] DO Work Phone: NEGATED: Highlighted row has not occurred!02-27-2023 influenza virus vaccine, unspecified formulation Lindajahaira MeltonOsmin [facility] NEGATED: Highlighted row has not occurred!12-18-2022 influenza virus vaccine, unspecified formulation Catrachito Rowlett [facility] Payers Date Payer Category Payer Self-pay [id number] 2022 Unknown [id number] 2018 Unknown 2018 Unknown [id number] 2014 Medicare [id number] 2014 Medicare MEDICARE MEDICAR E PART A AND B [id number] 2014-Present [address] [place] [address] [id number]. [id number] 1949 Unknown [id number] 2.16.840.1.496549.3.579.2.356 1949 Unknown [id number] 2.16.840.1.163064.3.579.2.356 1949 Unknown [id number] 2.16.840.1.881613.3.579.2.356 1949 Unknown [id number] 2.16.840.1.027334.3.579.2.1068 1949 Unknown [id number] 2.16.840.1.732336.3.579.2.1244 1949 Unknown [id number] 2.16.840.1.055104.3.579.2.1259 1949 Unknown [id number] 2.16.840.1.885290.3.579.2.1259 1949 Unknown [id number] 2.16.840.1.583265.3.579.2.727 1949 Unknown [id number] 2.16.840.1.670346.3.579.2.727 1949 Unknown [id number] 2.16.840.1.605971.3.579.2.727 1949 Unknown [id number] 2.16.840.1.308777.3.579.2 1949 Unknown [id number] 2.16.840.1.120738.3.579.2 1949 Unknown [id number] 2.16.840.1.882663.3.579.2 1949 Unknown [id number] 2.16.840.1.486809.3.579.2 1949 Unknown [id number] 2.16.840.1.160236.3.579. 1949 Unknown [id number] 2.16.840.1.224241.3.579. 1949 Unknown [id number] 2.16.840.1.650119.3.579. 1949 Unknown [id number] 2.16.840.1.333526.3.579. 1949 Unknown [id number] 2.16.840.1.063284.3.579. 1949 Unknown [id number] 2.16.840.1.956808.3.579.2 1949 Unknown [id number] 2.16.840.1.791461.3.579.2 1949 Unknown [id number] 2.16.840.1.061061.3.579.2 1949 Unknown [id number] 2.16.840.1.641932.3.579.2 1949 Unknown [id number] 2.16.840.1.978037.3.579.2 1949 Unknown [id number] 2.16.840.1.270668.3.579.2 1949 Unknown [id number] 2.16.840.1.926454.3.579.2 1949 Unknown [id number] 2.16.840.1.567578.3.579.2 1949 Unknown [id number] 2.16.840.1.683889.3.579.2 1949 Unknown [id number] 2.16.840.1.206563.3.579.2 1949 Unknown [id number] 2.16.840.1.713914.3.579.2 1949 Unknown [id number] 2.16.840.1.798977.3.579.2 1949 Unknown [id number] 2.16.840.1.533718.3.579.2 1949 Unknown [id number] 2.16.840.1.276421.3.579.2 1949 Unknown [id number] 2.16.840.1.618569.3.579.2 1949 Unknown [id number] 2.16.840.1.134889.3.579.2 1949 Unknown [id number] 2.16.840.1.420621.3.579.2 1949 Unknown [id number] 2.16.840.1.607206.3.579.2 1949 Unknown [id number] 2.16.840.1.658099.3.579.2.72 Unknown [id number] 2.16.840.1.219326.3.579.2.531 Unknown [id number] 2.16.840.1.094844.3.579.2.531 Unknown [id number] 2.16.840.1.664687.3.579.2.531 Unknown [id number] 2.16.840.1.900779.3.579.2.531 Unknown [id number] 2.16.840.1.975087.3.579.2.531 Social History Date Type Detail Facility Start: 02-12-2023 Never a smoker Never a smoker -[facility] [address] DO Work Phone: Start: 12-10-2020 End: 03-20-2023 Tobacco smoking status Never smoked tobacco (finding) [facility] Comment on above: denies use Tobacco smoking status Never [facility] Comment on above: denies use Start: 02-12-2023 Sex Assigned At Female F [facility] Start: 1950 Sex Assigned At Female F [facility] Start: 02-12-2023 Tobacco use and exposure Smokeless tobacco non-user [facility] Work Phone: Start: 02-12-2023 Alcohol intake Current drinke r of alcohol (finding) [facility] Work Phone: Start: 02-12-2023 Alcohol Comment social [facility] Work Phone: Start: 1950 Sex Assigned At Not on file U [facility] Work Phone: Start: 02-02-2023 End: 02-12-2023 Exposure to SARS-CoV-2 (event) Not sure [facility] Medical Equipment Procedure Code Equipment Code [...] 11, Dx: E11.9 Directions: BID, [id number], Supply, 165, cm, 06/11/22 9:10:00 EDT, Height/Length Dosing, 97.6, kg, 06/11/22 9:10:00 EDT, Weight Dosing Start: 06-13-2022 Lancets, See Instructions, 100 EA, 11, Dx: E11.9 Directions: BID, [facility], Supply, 166, cm, 05/10/21 8:27:00 EST, Height/Length Dosing, 92.8, kg, 05/10/21 8:27:00 EST, Weight Dosing Start: 05-10-2021 Test strips, See Instructions, 100 EA, 11, Dx: E11.9 Directions: BID, [facility] #[id number], Supply, 165, cm, 06/11/22 9:10:00 EDT, Height/Length Dosing, 97.6, kg, 06/11/22 9:10:00 EDT, Weight Dosing Start: 06-13-2022 CL CLOSURE DEVIC E EXOSEAL 6F FDA Start: 08-11-2018 CL STENT JIE 2.5 X 08 FDA Start: 08-11-2018 Multiple periphe ral artery stent, bare-metal [id number] FDA Start: 04-07-2022 Lancets, See Instructions, 100 EA, 11, Dx: E11.9 Directions: BID, [facility], Supply, 166, cm, 05/10/21 8:27:00 EST, Height/Length Dosing, 92.8, kg, 05/10/21 8:27:00 EST, Weight Dosing Start: 05-10-2021 Test strips, See Instructions, 100 EA, 11, Dx: E11.9 Directions: BID, [facility] #[id number], Supply, 165, cm, 06/11/22 9:10:00 EDT, Height/Length Dosing, 97.6, kg, 06/11/22 9:10:00 EDT, Weight Dosing Start: 06-13-2022 Lancets, See Instructions, 100 EA, 11, Dx: E11.9 Directions: BID, [facility], Supply, 166, cm, 05/10/21 8:27:00 EST, Height/Length Dosing, 92.8, kg, 05/10/21 8:27:00 EST, Weight Dosing Start: 05-10-2021 Test strips, See Instructions, 100 EA, 11, Dx: E11.9 Directions: BID, [facility] #[id number], Supply, 165, cm, 06/11/22 9:10:00 EDT, Height/Length Dosing, 97.6, kg, 06/11/22 9:10:00 EDT, Weight Dosing Start: 06-13-2022 Lancets, See Instructions, 100 EA, 11, Dx: E11.9 Directions: BID, [facility], Supply, 166, cm, 05/10/21 8:27:00 EST, Height/Length Dosing, 92.8, kg, 05/10/21 8:27:00 EST, Weight Dosing Start: 05-10-2021 Test strips, See Instructions, 100 EA, 11, Dx: E11.9 Directions: BID, [facility] #[id number], Supply, 165, cm, 06/11/22 9:10:00 EDT, Height/Length Dosing, 97.6, kg, 06/11/22 9:10:00 EDT, Weight Dosing Start: 06-13-2022 Lancets, See Instructions, 100 EA, 11, Dx: E11.9 Directions: BID, [facility], Supply, 166, cm, 05/10/21 8:27:00 EST, Height/Length Dosing, 92.8, kg, 05/10/21 8:27:00 EST, Weight Dosing Start: 05-10-2021 Test strips, See Instructions, 100 EA, 11, Dx: E11.9 Directions: BID, [facility] #[id number], Supply, 165, cm, 06/11/22 9:10:00 EDT, Height/Length Dosing, 97.6, kg, 06/11/22 9:10:00 EDT, Weight Dosing Start: 06-13-2022 Lancets, See Instructions, 100 EA, 11, Dx: E11.9 Directions: BID, [facility], Supply, 166, cm, 05/10/21 8:27:00 EST, Height/Length Dosing, 92.8, kg, 05/10/21 8:27:00 EST, Weight Dosing Start: 05-10-2021 Test strips, See Instructions, 100 EA, 11, Dx: E11.9 Directions: BID, [facility] #[id number], Supply, 165, cm, 06/11/22 9:10:00 EDT, Height/Length Dosing, 97.6, kg, 06/11/22 9:10:00 EDT, Weight Dosing Start: 06-13-2022 Lancets, See Instructions, 100 EA, 11, Dx: E11.9 Directions: BID, [facility], Supply, 166, cm, 05/10/21 8:27:00 EST, Height/Length Dosing, 92.8, kg, 05/10/21 8:27:00 EST, Weight Dosing Start: 05-10-2021 Test strips, See Instructions, 100 EA, 11, Dx: E11.9 Directions: BID, [facility][id number], Supply, 165, cm, 06/11/22 9:10:00 EDT, Height/Length Dosing, 97.6, kg, 06/11/22 9:10:00 EDT, Weight Dosing Start: 06-13-2022 Lancets, See Instructions, 100 EA, 11, Dx: E11.9 Directions: BID, [facility], Supply, 166, cm, 05/10/21 8:27:00 EST, Height/Length Dosing, 92.8, kg, 05/10/21 8:27:00 EST, Weight Dosing Start: 05-10-2021 Test strips, See Instructions, 100 EA, 11, Dx: E11.9 Directions: BID, [facility][id number], Supply, 165, cm, 06/11/22 9:10:00 EDT, Height/Length Dosing, 97.6, kg, 06/11/22 9:10:00 EDT, Weight Dosing Start: 06-13-2022 Lancets, See Instructions, 100 EA, 11, Dx: E11.9 Directions: BID, [facility], Supply, 166, cm, 05/10/21 8:27:00 EST, Height/Length Dosing, 92.8, kg, 05/10/21 8:27:00 EST, Weight Dosing Start: 05-10-2021 Test strips, See Instructions, 100 EA, 11, Dx: E11.9 Directions: BID, [facility] #[id number], Supply, 165, cm, 06/11/22 9:10:00 EDT, Height/Length Dosing, 97.6, kg, 06/11/22 9:10:00 EDT, Weight Dosing Start: 06-13-2022 Lancets, See Instructions, 100 EA, 11, Dx: E11.9 Directions: BID, [facility], Supply, 166, cm, 05/10/21 8:27:00 EST, Height/Length Dosing, 92.8, kg, 05/10/21 8:27:00 EST, Weight Dosing Start: 05-10-2021 Test strips, See Instructions, 100 EA, 11, Dx: E11.9 Directions: BID, [facility] #[id number], Supply, 165, cm, 06/11/22 9:10:00 EDT, Height/Length Dosing, 97.6, kg, 06/11/22 9:10:00 EDT, Weight Dosing Start: 06-13-2022 Lancets, See Instructions, 100 EA, 11, Dx: E11.9 Directions: BID, [facility], Supply, 166, cm, 05/10/21 8:27:00 EST, Height/Length Dosing, 92.8, kg, 05/10/21 8:27:00 EST, Weight Dosing Start: 05-10-2021 Test strips, See Instructions, 100 EA, 11, Dx: E11.9 Directions: BID, [facility] #[id number], Supply, 165, cm, 06/11/22 9:10:00 EDT, Height/Length Dosing, 97.6, kg, 06/11/22 9:10:00 EDT, Weight Dosing Start: 06-13-2022 Lancets, See Instructions, 100 EA, 11, Dx: E11.9 Directions: BID, [facility], Supply, 166, cm, 05/10/21 8:27:00 EST, Height/Length Dosing, 92.8, kg, 05/10/21 8:27:00 EST, Weight Dosing Start: 05-10-2021 Test strips, See Instructions, 100 EA, 11, Dx: E11.9 Directions: BID, [facility] #[id number], Supply, 165, cm, 06/11/22 9:10:00 EDT, Height/Length [...] 11, Dx: E11.9 Directions: BID, [facility] #[id number], Supply, 165, cm, 06/11/22 9:10:00 EDT, Height/Length Dosing, 97.6, kg, 06/11/22 9:10:00 EDT, Weight Dosing Start: 06-13-2022 Lancets, See Instructions, 100 EA, 11, Dx: E11.9 Directions: BID, [facility], Supply, 166, cm, 05/10/21 8:27:00 EST, Height/Length Dosing, 92.8, kg, 05/10/21 8:27:00 EST, Weight Dosing Start: 05-10-2021 Test strips, See Instructions, 100 EA, 11, Dx: E11.9 Directions: BID, [facility] #[id number], Supply, 165, cm, 06/11/22 9:10:00 EDT, Height/Length Dosing, 97.6, kg, 06/11/22 9:10:00 EDT, Weight Dosing Start: 06-13-2022 Lancets, See Instructions, 100 EA, 11, Dx: E11.9 Directions: BID, [facility], Supply, 166, cm, 05/10/21 8:27:00 EST, Height/Length Dosing, 92.8, kg, 05/10/21 8:27:00 EST, Weight Dosing Start: 05-10-2021 Test strips, See Instructions, 100 EA, 11, Dx: E11.9 Directions: BID, [facility] #[id number], Supply, 165, cm, 06/11/22 9:10:00 EDT, Height/Length Dosing, 97.6, kg, 06/11/22 9:10:00 EDT, Weight Dosing Start: 06-13-2022 Lancets, See Instructions, 100 EA, 11, Dx: E11.9 Directions: BID, [facility], Supply, 166, cm, 05/10/21 8:27:00 EST, Height/Length Dosing, 92.8, kg, 05/10/21 8:27:00 EST, Weight Dosing Start: 05-10-2021 Test strips, See Instructions, 100 EA, 11, Dx: E11.9 Directions: BID, [facility] #[id number], Supply, 165, cm, 06/11/22 9:10:00 EDT, Height/Length Dosing, 97.6, kg, 06/11/22 9:10:00 EDT, Weight Dosing Start: 06-13-2022 Lancets, See Instructions, 100 EA, 11, Dx: E11.9 Directions: BID, [facility], Supply, 166, cm, 05/10/21 8:27:00 EST, Height/Length Dosing, 92.8, kg, 05/10/21 8:27:00 EST, Weight Dosing Start: 05-10-2021 Test strips, See Instructions, 100 EA, 11, Dx: E11.9 Directions: BID, [facility][id number], Supply, 165, cm, 06/11/22 9:10:00 EDT, Height/Length Dosing, 97.6, kg, 06/11/22 9:10:00 EDT, Weight Dosing Start: 06-13-2022 Functional Status Date Assessment Result Facility 04-10-2023 Functional Status N/A [facility] 03-20-2023 Functional Status N/A [facility] 03-04-2023 Functional Status N/A [facility] 02-16-2023 Functional Status N/A [facility] 01-26-2023 Functional Status N/A [facility] 01-06-2023 Functional Status N/A [facility] 09-10-2022 Functional Status N/A [facility] 06-11-2022 Functional Status N/A [facility] 04-07-2022 Functional status Patient at [facility] Work Phone: 11-28-2021 N/A [facility] 10-28-2021 No [facility] Mental Status Date Assessment Result Facility 04-07-2022 Cognitive function Cognitive Sta tus Patient at [facility] Work Phone: Clinical Notes 01-27-2022 to 04-10-2023 Note Date & Type Note Facility 04-10-2023 Evaluation + Plan note Extrac beatriz from: Title:ED Note Author:Erick BARTH, Radhames Crystal te:04/10/23 Bronchitis (J40: Bronchitis, not specified as acute or chronic) Orders: albuterol, 2 puff(s), Inhalation, q6hr Wheezing, 8.5 gm, Refill(s) 0, [facility][id number], 165, cm, 04/10/23 9:26:00 EST, Height/Length Dosing, 96.9, kg, 04/10/23 9:26:00 EST, Weight Dosing azithromycin, = 1 packet(s), Oral, As Directed, as directed on package labeling, X 5 day(s), # 6 tab(s), Refills(s) 0, Pharmacy: [facility] #[id number], 165, cm, 04/10/23 9:26:00 EST, Height/Length Dosing, 96.9, kg, 04/10/23 9:26:00 EST, Weight Dosing predniSONE, 60 mg = 3 tab(s), Oral, Daily, X 7 day(s), # 21 tab(s), Refills(s) 0, Pharmacy: [facility] #[id number], 165, cm, 04/10/23 9:26:00 EST, Height/Length Dosing, 96.9, kg, 04/10/23 9:26:00 EST, Weight Dosing XR Chest 2 Views Future Appointments Appointment Date:07/28/2023 08:00:00 AM Scheduled Provider:Christopher WELLS DO, FAAFP [place] [place] [employer] Appointment Type: Open Appointment Date:02/01/2024 08:00:00 AM Scheduled Provider: Location:[facility] Appointment Type: Medicare Wellness Subsequent Future Scheduled Tests Laboratory* HgbA1c 03/27/22 * HgbA1c 06/25/22 * HCV Antibody RFX to Quant PCR 01/26/23 [facility]01-26-2024 Hospital Discharge instructions Patient Education 04/10/2023 [...] condition. Follow these instructions at home: Take hlhw-izb-hkupgjx and prescription medicines only as told by [...] and water are not available, use hand bowl sander. Avoid contact with people who have cold [...] it is easier to cough up. Take ynux-dsw-yvajdpe and prescription medicines only as told by [...] provider. Document Revised: 06/12/2022 Document Reviewed: 07/03/2021 [employer] Patient Education 2022 [employer]. Follow Up Care 04/10/2023 09:14:32 With:Christopher WELLS Address: [address], [place] [address]- [facility] (1) When:04/13/2023 11:17:35 [facility]01-05-2024 Hospital Discharge instructions Patient Education 03/20/2023 [...] plan? Your health care provider or certified orthotist can help you make a plan for [...] (heat stroke). Where to find more information [place] [employer]: www.diabetes.org Summary Exercising regularly is important for overall health, especially for people who have diabetes mellitus. Exercising has many health benefits. It increases muscle strength and bone density and reduces bodyfat and stress. It also lowers and controls blood glucose. Your health care provider or certified orthotist can help you make an activity plan [...] provider. Document Revised: 11/28/2019 Document Reviewed: 11/28/2019 [employer] Patient Education 2022 [employer]. Follow Up Care 12/18/2022 08:59:12 With:Christopher WELLS DO, FAAFP, FAM, PED Address: [place] [address]- When:Within 4 Month(s) [facility] 12-20-2023 Evaluation + Plan [...] 09:00:00 AM Scheduled Provider:Christopher WELLS DO, FAAFP Location:[facility] Appointment Type:FM Open Appointment Date:03/23/2023 08:30:00 AM Scheduled Provider:Mara Pastor PA-C Location:[facility] Appointment Type:Pain Management - Follow Up (FT) Appointment Date:02/01/2024 08:00:00 AM Scheduled Provider: Location:[facility] Appointment Type: Medicare Wellness Subsequent Future Scheduled Tests Laboratory* HgbA1c 03/27/22 * HgbA1c 06/25/22 * HCV Antibody RFX to Quant PCR 01/26/23 [facility]12-20-2023 Note [id number] NoteDiagnosis: M16.12, left hip pain/osteoarthritis Procedure: [...] procedure, and agrees to continue currently prescribed/recommended therapies.[facility] Comment on above:Result Comment: Electronically Signed By: Nicola Tapia DO.maria teresa\Date and Time Signed: 03/04/23 09:06 [id number] Evaluation note* Encounter Date Diagnosis Assessment Notes [...] sooner should she deteriorate in any way [employer] Other [id number] History of Present illness Narrative* Fariha Guidry [...] I suggested that she discuss with her traffic line painter the addition of SKGU8lgmszykkp or GLP agonists. Reviewed with the patient [...] complications. 5. Diabetes, managed by endocrinology in [place]. A1c remains above target, advised patient to discuss with the traffic line painter more aggressive therapy. 6. Hypertension completely under control. 7. High-risk medication with Xarelto, so far well-tolerated. Takes baby aspirin twice weekly 8. Stage III chronic kidney disease to be monitored closely, she follow with nephrology 9. intermittent claudications and PAD followed by vascular surgery in [place]. Patient is scheduled next week to have revascularization for intermittent claudication 10. Sleep apnea not consistently using CPAP machine. Encouraged the patient to utilize it daily. Fariha Guidry MD, [facility] Review of Systems All other systems [...] tablet, Rfl: 3 Assessment/Plan 1. Atherosclerosis of [place] coronary artery of [place] heart without angina pectoris Follow Up In Cardiology atorvastatin (Lipitor) 40 mg tablet Alanine Aminotransferase Aspartate Aminotransferase Lipid Panel 2. Status post coronary angioplasty Follow Up In Cardiology 3. Essential hypertension Follow Up In Cardiology 4. Hyperlipidemia, unspecified hyperlipidemia type atorvastatin (Lipitor) 40 mg tablet Alanine Aminotransferase Aspartate Aminotransferase Lipid Panel 5. PVD (peripheral vascular disease) ([facility]) 6. Stage 3 chronic kidney disease, unspecified whether stage 3a or 3b CKD ([facility]) 7. Sleep apnea, [facility] 1(274) 987-744411-30-2023 Instructions* Patient Instructions* Saloni Benavides LPN - [...] [facility] up [facility]: 1(149) 533-234711-13-2023 Hospital Discharge instructions Patient Education 01/26/2023 09:01:27 [...] Carrots. Green beans. Tomatoes. Peppers. Onions. Cucumbers. Kennedy sprouts. Grains Whole grains, such as whole-wheat [...] meet with a certified diabetes care and cooperative education coordinator? Do I need to meet with a dietitian? What number can I call if I have questions? When are the best times to check my blood glucose? Where to find more information: [place] [employer] Association: diabetes.org Academy of Nutrition and Dietetics: eatright.org National Holcomb of Diabetes and Digestive and Kidney Diseases: [...] provider. Document Revised: 10/03/2020 Document Reviewed: 10/03/2020 [employer] Patient Education 2022 [employer]. 01/26/2023 09:01:11 Fall Prevention in the Home, Adult, Etrb-gp-Dhod Fall Prevention in the Home, Adult Falls [...] Keep items that you use often in tyfg-wm-dlatx places. Lower the shelves around your home [...] of the way. Do not use floor luxembourgish or wax that makes floors slippery. What [...] for Disease Control and PreventionKELLEY: www.cdc.gov National Holcomb on Aging: www.[place].nih.gov Contact a doctor if: [...] provider. Document Revised: 12/02/2021 Document Reviewed: 10/03/2020 [employer] Patient Education 2022 [employer]. 01/26/2023 09:01:04 Hepatitis C, Tow[place]-ls-[place] Hepatitis C Hepatitis C is a liver [...] organ donations that were done in the [facility] before 1991. What increases the risk? [...] Follow these instructions at home: Medicines Take dgpj-dvz-vjsawqv and prescription medicines only as told by your doctor. If you were given an antiviral medicine, take it as told by your doctor. Do not stop using the antiviral even if you start to feel better. Do not take any new medicines unless your doctor says that this is okay. This includes wtko-jbu-xkmbnrm medicines and supplements. Activity Rest as needed. [...] not have soap and water, use hand bowl sander. Cover any cuts or open sores on [...] provider. Document Revised: 01/17/2021 Document Reviewed: 01/17/2021 [employer] Patient Education 2022 [employer]. 01/26/2023 09:00:41 Exercising to Lose Weight Exercising [...] provider. Document Revised: 04/28/2021 Document Reviewed: 04/28/2021 [employer] Patient Education 2022 [employer]. 01/26/2023 09:00:38 Cooking With Less Salt Cooking [...] salt. Use sodium-free baking soda when baking. [place], braise, or roast foods to add flavor with less salt. Avoid adding salt to pasta, rice, or hot cereals. Drain and rinse canned vegetables, beans, and meat before use. Avoid adding salt when cooking sweets and desserts. Cook with low-sodium ingredients. What foods are high in sodium? Vegetables Regular canned vegetables (not low-sodium or reduced-sodium). Sauerkraut, pickled vegetables, and relishes. Olives. Afghan fries. Onion rings. Regular canned tomato sauce [...] Soy milk. Yogurt. Low-sodium cheeses, such as Palauan, [place]man Teodoro, mozzarella, and ricotta. Sherbet or ice [...] foods you can pair it with. Herbs Williamson leaves Soups, meat and vegetable dishes, and spaghetti sauce. Basil Romanian dishes, soups, pasta, and fish dishes. Cilantro Meat, poultry, and vegetable dishes. Theodosia powder Marinades and Canadian dishes. Chives Salad dressings and potato dishes. Cumin Canadian dishes, couscous, and meat dishes. Dill Fish dishes, sauces, and salads. Fennel Meat and vegetable dishes, breads, and cookies. Garlic (do not use garlic salt) Romanian dishes, meat dishes, salad dressings, and sauces. Marjoram Soups, potato dishes, and meat dishes. Oregano Pizza and spaghetti sauce. Parsley Salads, soups, pasta, and meat dishes. Vanita Romanian dishes, salad dressings, soups, and red meats. [...] provider. Document Revised: 02/22/2020 Document Reviewed: 02/22/2020 [employer] Patient Education 2022 [employer]. 01/26/2023 09:00:36 BMI for Adults BMI for [...] numbers. This can be done either in [place] ([place] or metric measurements. Note that charts and online BMI calculators are available to help you find your BMI quickly and easily without having to do these calculations yourself. To calculate your BMI in [place] ([place] measurements: 1.Measure your weight in pounds [...] Centers for Disease Control and Prevention: www.cdc.gov [place] Heart Association: www.heart.org National Heart, Lung, and Blood [place]: www.nhlbi.nih.gov Summary Body mass index (BMI) is a number that is calculated from a person's weight and height. BMI may help estimate how much of a person's weight is composed of fat. BMI can help identify thosewho may be at higher risk for certain medical problems. BMI can be measured using Egyptian measurements or metric measurements. BMI charts are used to identify whether you are underweight, normal weight, overweight, or obese. This information is not intended to replace advice given to you by your health care provider. Make sure you discuss any questions you have with your health care provider. Document Revised: 11/23/2019 Document Reviewed: 09/30/2019 [employer] Patient Education 2022 [employer]. [facility] 10-24-2023 Evaluation + Plan [...] Appointments Appointment Date:01/26/2023 08:00:00 AM Scheduled Provider: Location:[facility] Appointment Type: Medicare Wellness Subsequent Appointment Date:03/12/2023 08:00:00 AM Scheduled Provider:Linda Solorio CNP [place] [place] [facility] Appointment Type:BADH Follow Up Appointment Date:03/20/2023 09:00:00 AM Scheduled Provider:Christopher WELLS DO, FAAFP Location:[facility] Appointment Type: Open [facility] Scheduled Tests Laboratory* HgbA1c 03/27/22 * HgbA1c 06/25/22 [facility]10-23-2023 Evaluation note* Encounter Date Diagnosis Assessment [...] understands and is agreement with that plan. [employer] Other 10-11-2023 NoteMicrobiology PROCEDURE: Wound Culture [R1] [...] Locations R1: This test was performed at: [facility], [address] [place] [address], [id number] , , XwjelgWayne HospitalComment on above:Performed By: #### [id number] #### [facility] [address] [place] [address] [id number] Evaluation note* Encounter Date Diagnosis Assessment Notes [...] to see her back in 2 months. [employer] Other 08-21-2023 Evaluation note* Encounter Date Diagnosis [...] call us with any issues or concerns. [employer] Other 06-28-2023 Hospital Discharge instructions Patient Education [...] oral rehydration solution (ORS). This is an kpnq-jvu-mteagfz medicine that helps return your body to [...] drinks, sports drinks, and soda. Eat bland, ojbm-hn-gzwtsj foods in small amounts as you are able. These foods include bananas, applesauce, rice, lean meats, toast, and crackers. Avoid alcohol. Avoid spicy or fatty foods. Medicines Take onqb-twz-toowfee and prescription medicines only as told by your health care provider. If you were prescribed an antibiotic medicine, take it as told by your health care provider. Do notstop using the antibiotic even if you start to feel better. General instructions Wash your hands often using soap and water. If soap and water are not available, use a hand bowl sander. Others in the household should wash their [...] soap and water are not available, usehand bowl sander. Contact a health care provider if your diarrhea gets worse or you have new symptoms. Get help right away if you have signs of dehydration. This information is not intended to replace advice given to you by your health care provider. Make sure you discuss any questions you have with your health care provider. Document Revised: 09/11/2021 Document Reviewed: 09/11/2021 [employer] Patient Education 2022 [employer]. 09/10/2022 07:52:51 High-Fiber Eating Plan High-Fiber Eating [...] Bulgur wheat. Millet. Quinoa. Bran muffins. Popcorn. Crawford wafer crackers. Meats and other proteins Harmony beans, kidney beans, and chase beans. Soybeans. [...] Cream cheese. Sour cream. Fats and oils [place]. Beverages Soft drinks. Other foods Cakes and [...] provider. Document Revised: 07/05/2020 Document Reviewed: 07/05/2020 [employer] Patient Education 2022 [employer]. Follow Up Care 06/11/2022 09:32:08 With:Linda Solorio CNP Address: When:6 months [facility] 03-29-2023 Hospital Discharge instructions [...] Bulgur wheat. Millet. Quinoa. Bran muffins. Popcorn. [place] wafer crackers. Meats and other proteins Harmony, kidney, and chase beans. Soybeans. Split peas. [...] Cream cheese. Sour cream. Fats and oils [place]. Beverages Soft drinks. Other foods Cakes and [...] 03/02/2006 Document Revised: 01/04/2018 Document Reviewed: 01/04/2018 [employer] Patient Education 2020 [employer]. 06/11/2022 09:15:20 Hemorrhoids Hemorrhoids Hemorrhoids are swollen [...] 3 times a day. General instructions Take nyoe-bqq-yvpzrzq and prescription medicines only as told by [...] 02/27/2001 Document Revised: 07/29/2019 Document Reviewed: 07/22/2018 [employer] Patient Education 2020 [employer] 06/11/2022 09:15:19 Colon Polyps Colon Polyps [...] 11/26/2004 Document Revised: 06/17/2018 Document Reviewed: 06/17/2018 [employer] Patient Education Stootie. Follow Up Care 06/09/2022 16:22:13 With:Linda Solorio CNP Address: When:3 months [facility] [id number] Note [id number]:127[facility] 05-05-2022 Evaluation note* Encounter Date Diagnosis Assessment Notes Treatment Notes Treatment Clinical Notes Apr, Peripheral vascular disease, unspecified (ICD-10 - I73.9) Apr, Other specified postprocedural states (ICD-10 - Z98.890) Apr, Other Peripheral arterial occlusive disease She has a good clinical outcome. I will see her back in 6 months with ABIs on that day. She will continue her current medical regimen. [employer] Other 01-24-2023 Evaluation note* Encounter Date Diagnosis Assessment Notes Treatment Notes Treatment Clinical Notes Mar, Post-op pain (ICD-10 - G89.18) [employer] Other 01-16-2023 Evaluation + Plan note Diagnostic Tests Pending * PTH Intact 03/31/22 * Immunofixation Serum 03/31/22 * Immunofixation, Urine 03/31/22 * C3 Complement 03/31/22 * C4 Complement 03/31/22 * Free K+L Lt Chains,Qn,S 03/31/22 Future Scheduled Tests Laboratory* HgbA1c 03/27/22 * HgbA1c 06/25/22 [facility]01-16-2023 Evaluation note* Encounter Date Diagnosis Assessment [...] of both lower extremities (ICD-10 - I73.9) [employer] Other 01-12-2023 Evaluation + Plan note Future Scheduled Tests Laboratory* HgbA1c 03/27/22 * HgbA1c 06/25/22 [facility]11-14-2022 Evaluation note* Encounter Date Diagnosis Assessment [...] in 2 months time with the ABIs. [employer] Other Evaluation + Plan note Future Appointments Appointment Date:08/27/2021 09:30:00 AM Scheduled Provider: Location:.DIETARY Appointment Type:DM Diabetes Initial accountant assistant 59 (F Appointment Date:10/16/2021 01:00:00 PM Scheduled Provider: [facility] Diabetes [facility] () [facility] Evaluation + Plan note Future Appointments Appointment Date:10/15/2021 09:00:00 AM Scheduled Provider: Location:.DIETARY Appointment Type:DM Diabetes Group () Appointment Date:10/28/2021 09:45:00 AM Scheduled Provider:Charis Daniel MD Location[facility] Appointment Type:Vascular New Patient () Appointment Date:12/16/2021 09:40:00 AM Scheduled Provider:Christopher WELLS DO, FAAFP Location:[facility] Appointment Type: Open Future Scheduled Tests Laboratory* HgbA1c 12/25/21 * HgbA1c 03/27/22 * HgbA1c 06/25/22 Radiology* US PVR Lower EXT Complete Bilat 09/24/21 [facility] Future App[facility]ments Appointment Date:10/15/2021 09:00:00 AM Scheduled Provider: [facility] Type:DM Diabetes Group (FT) Appointment Date:10/28/2021 09:45:00 AM Scheduled Provider:Charis Daniel MD Location[facility] Appointment Type:Vascular New Patient (FT) Appointment Date:12/16/2021 09:40:00 AM Scheduled Provider:Christopher WELLS DO, FAAFP Location:[facility] Appointment Type:FM Open Future Scheduled Tests Laboratory* HgbA1c 12/25/21 * HgbA1c 03/27/22 * HgbA1c 06/25/22 [facility] Future Appointments Appointment Date:12/16/2021 09:40:00 AM Scheduled Provider:Christopher WELLS DO, FAAFP Location:[facility] Appointment Type:FM Open Appointment Date:01/02/2022 01:00:00 PM Scheduled Provider: [facility] Type:DM Diabetes Group (FT) Future Scheduled Tests Laboratory* HgbA1c 12/25/21 * HgbA1c 03/27/22 * HgbA1c 06/25/22 Radiology* US LE Venous Duplex Insufficiency Bilat 10/28/21 * CTA Abd Aorto-bilat/ iliofemoral runoff 10/28/21 [facility] Future Appointments Appointment Date:12/16/2021 09:40:00 AM Scheduled Provider:Christopher WELLS DO, FAAFP Location:[facility] Appointment Type:FM Open Appointment Date:01/02/2022 01:00:00 PM Scheduled Provider: [facility] Type:DM Diabetes Group (FT) Appointment Date:02/24/2022 09:00:00 AM Scheduled Provider:Charis Daniel MD Location[facility] Appointment Type:Vascular Follow Up (FT) Future Scheduled Tests Laboratory* HgbA1c 12/25/21 * HgbA1c 03/27/22 * HgbA1c 06/25/22 [facility] Future Appointments Appointment Date:02/24/2022 09:00:00 AM Scheduled Provider:Charis Daniel MD Location[facility] Appointment Type:Vascular Follow Up (FT) Future Scheduled Tests Laboratory* HgbA1c 12/25/21 * HgbA1c 03/27/22 * HgbA1c 06/25/22 [facility] Future Appointments Appointment Date:02/24/2022 09:00:00 AM Scheduled Provider:Charis Daniel MD [facility] Type:Vascular Follow Up (FT) Future Scheduled Tests Laboratory* HgbA1c 03/27/22 * HgbA1c 06/25/22 [facility] Future Appointments Appointment Date:05/21/2022 01:05:00 PM Scheduled Provider: Location:[facility] Appointment Type:Surgery FT Diagnostic Tests Pending * O & P Exam, Routine 05/08/22 * Giardia lamblia, Direct Detection EIA 05/08/22 Future Scheduled Tests Laboratory* HgbA1c 03/27/22 * HgbA1c 06/25/22 [facility] Future Appointments Appointment Date:09/10/2022 08:00:00 AM Scheduled Provider:Linda Solorio CNP [place] [place] [facility] Appointment Type:BAD Follow Up Future Scheduled Tests Laboratory* HgbA1c 03/27/22 * HgbA1c 06/25/22 [facility] Evaluation + Plan note Future Appointments Appointment Date:03/12/2023 08:00:00 AM Scheduled Provider:Linda Solorio CNP [place] [place] [facility] Appointment Type:BAD Follow Up Future Scheduled Tests Laboratory* HgbA1c 03/27/22 * HgbA1c 06/25/22 [facility] Evaluation + Plan note Future Appointments Appointment Date:12/18/2022 08:20:00 AM Scheduled Provider:Christopher WELLS DO, FAAFP [place] [place] [employer] Appointment Type: Open Appointment Date:01/26/2023 08:00:00 AM Scheduled Provider: Location:[facility] Appointment Type: Medicare Wellness Subsequent Appointment Date:03/12/2023 08:00:00 AM Scheduled Provider:Linda Solorio CNP [place] [place] [facility] Appointment Type:BAD Follow Up Future Scheduled Tests Laboratory* HgbA1c 03/27/22 * HgbA1c 06/25/22 [facility] Future App[facility]ments Appointment Date:01/06/2023 08:30:00 AM Scheduled Provider:[facility] Type:[facility] - New (FT) Appointment Date:01/26/2023 08:00:00 AM Scheduled Provider: Location:[facility] Appointment Type: Medicare Wellness Subsequent Appointment Date:03/12/2023 08:00:00 AM Scheduled Provider:Linda Solorio CNP [place] [place] [facility] Appointment Type:BAD Follow Up Appointment Date:03/20/2023 09:00:00 AM Scheduled Provider:Christopher WELLS DO, FAAFP Location:[facility] Appointment Type: Open Future Scheduled Tests Laboratory* HgbA1c 03/27/22 * HgbA1c 06/25/22 [facility] Future Appointments Appointment Date:01/19/2023 09:30:00 AM Scheduled Provider: [facility]oint[facility] Type:WC Assessment (FT) Appointment Date:01/26/2023 08:00:00 AM Scheduled Provider: Location:[facility] Appointment Type: Medicare Wellness Subsequent Appointment Date:01/27/2023 02:00:00 PM Scheduled Provider:Denton Mares DPM [facility] Appoint[facility] Type:WC Follow Up Visit (FT) Appointment Date:02/02/2023 09:45:00 AM Scheduled Provider: [facility] Appointment Type:Surgery FT Appointment Date:02/17/2023 08:45:00 AM Scheduled Provider:Gary Cerda MD Location:[facility] Appointment Type:Pain Management - Follow Up (FT) Appointment Date:03/12/2023 08:00:00 AM Scheduled Provider:Linda Solorio CNP [place] [place] [facility] Appointment Type:BAD Follow Up Appointment Date:03/20/2023 09:00:00 AM Scheduled Provider:Christopher WELLS DO, FAAFP Location:[facility] Appointment Type:FM Open Future Scheduled Tests Laboratory* HgbA1c 03/27/22 * HgbA1c 06/25/22 [facility] Future Appointments Appointment Date:01/26/2023 08:00:00 AM Scheduled Provider: Location:[facility] Appointment Type:FM Medicare Wellness Subsequent Appointment Date:01/27/2023 02:00:00 PM Scheduled Provider:Denton Mares DPM Location[facility] Appointment Type:WC Follow Up Visit (FT) Appointment Date:02/02/2023 09:45:00 AM Scheduled Provider: Location:[facility] Appointment Type:Surgery FT Appointment Date:02/17/2023 08:45:00 AM Scheduled Provider:Gary Cerda MD [facility] Type:Pain Management - Follow Up (FT) Appointment Date:03/12/2023 08:00:00 AM Scheduled Provider:Linda Solorio CNP [place] [place] [facility] Appointment Type:BAD Follow Up Appointment Date:03/20/2023 09:00:00 AM Scheduled Provider:Christopher WELLS DO, FAAFP Location:[facility] Appointment Type:FM Open Future Scheduled Tests Laboratory* HgbA1c 03/27/22 * HgbA1c 06/25/22 [facility] Future Appointments Appointment Date:01/27/2023 02:00:00 PM Scheduled Provider:Denton Mares DPM [facility] Appointment Type:WC Follow Up Visit (FT) Appointment Date:02/02/2023 09:45:00 AM Scheduled Provider: [facility] Appointment Type:Surgery FT Appointment Date:02/17/2023 08:45:00 AM Scheduled Provider:Gary Cerda MD [facility] Appointment Type:Pain Management - Follow Up (FT) Appointment Date:03/12/2023 08:00:00 AM Scheduled Provider:Linda Solorio CNP [place] [place] [facility] Appointment Type:BAD Follow Up Appointment Date:03/20/2023 09:00:00 AM Scheduled Provider:Christopher WELLS DO, FAAFP Location:[facility] Appointment Type:FM Open Appointment Date:02/01/2024 08:00:00 AM Scheduled Provider: Location:[facility] Appointment Type:FM Medicare Wellness Subsequent Future Scheduled Tests Laboratory* HgbA1c 03/27/22 * HgbA1c 06/25/22 * HCV Antibody RFX to Quant PCR 01/26/23 [facility] Evaluation + Plan note Future Appointments Appointment Date:02/02/2023 09:45:00 AM Scheduled Provider: [facility] Appointment Type:Surgery FT Appointment Date:02/10/2023 02:30:00 PM Scheduled Provider:Denton Mares DPM [facility] Appointment Type:WC Follow Up Visit (FT) Appointment Date:02/17/2023 08:45:00 AM Scheduled Provider:Gary Cerda MD Location:[facility] Appointment Type:Pain Management - Follow Up (FT) Appointment Date:03/12/2023 08:00:00 AM Scheduled Provider:Linda Solorio CNP [place] [place] [facility] Appointment Type:BADH Follow Up Appointment Date:03/20/2023 09:00:00 AM Scheduled Provider:Christopher WELLS DO, FAAFP Location:[facility] Appointment Type: Open Appointment Date:02/01/2024 08:00:00 AM Scheduled Provider: Location:[facility] Appointment Type:FM Medicare Wellness Subsequent Future Scheduled Tests Laboratory* HgbA1c 03/27/22 * HgbA1c 06/25/22 * HCV Antibody RFX to Quant PCR 01/26/23 [facility] Future Appointments Appointment Date:02/16/2023 01:45:00 PM Scheduled Provider: [facility] Appointment Type:WC Assessment (FT) Appointment Date:02/16/2023 02:15:00 PM Scheduled Provider: Location[facility] Appointment Type:Surgery FT Appointment Date:02/24/2023 02:00:00 PM Scheduled Provider:Denton Mares DPM [facility] Appointment Type:WC Follow Up Visit (FT) Appointment Date:03/02/2023 08:15:00 AM Scheduled Provider:Mara Pastor PA-C Location:[facility] Appointment Type:Pain Management - Follow Up (FT) Appointment Date:03/02/2023 09:40:00 AM Scheduled Provider:Linda Solorio CNP [place] [place] [facility] Appointment Type:BAD Follow Up Appointment Date:03/20/2023 09:00:00 AM Scheduled Provider:Christopher WELLS DO, FAAFP Location:[facility] Appointment Type:FM Open Appointment Date:02/01/2024 08:00:00 AM Scheduled Provider: Location:[facility] Appointment Type:FM Medicare Wellness Subsequent Future Scheduled Tests Laboratory* HgbA1c 03/27/22 * HgbA1c 06/25/22 * HCV Antibody RFX to Quant PCR 01/26/23 [facility] Future App[facility]ments Appointment Date:02/24/2023 02:00:00 PM Scheduled Provider:Denton Mares DPM [facility] Appointment Type:WC Follow Up Visit (FT) Appointment Date:03/02/2023 09:40:00 AM Scheduled Provider:Linda Solorio CNP [place] [place] [facility] App[facility]ment Type:[facility] Follow Up Appointment Date:03/04/2023 08:45:00 AM Scheduled Provider: Location:[facility] Appointment Type:Surgery FT Appointment Date:03/20/2023 09:00:00 AM Scheduled Provider:Christopher WELLS DO, FAAFP Location:[facility] Appointment Type:FM Open Appointment Date:03/23/2023 08:30:00 AM Scheduled Provider:Mara Pastor PA-C Location:[facility] Appointment Type:Pain Management - Follow Up (FT) Appointment Date:02/01/2024 08:00:00 AM Scheduled Provider: Location:[facility] Appointment Type:FM Medicare Wellness Subsequent Future Scheduled Tests Laboratory* HgbA1c 03/27/22 * HgbA1c 06/25/22 * HCV Antibody RFX to Quant PCR 01/26/23 [facility] Future App[facility]ments Appointment Date:03/03/2023 02:30:00 PM Scheduled Provider:Denton Mares DPM [facility] Appointment Type:WC Follow Up Visit (FT) Appointment Date:03/04/2023 08:45:00 AM Scheduled Provider: Location[facility] Appointment Type:Surgery FT Appointment Date:03/20/2023 09:00:00 AM Scheduled Provider:Christopher WELLS DO, FAAFP Location:[facility] Appointment Type:FM Open Appointment Date:03/23/2023 08:30:00 AM Scheduled Provider:Mara Pastor PA-C [facility] [place] Appointment Type:Pain Management - Follow Up (FT) Appointment Date:02/01/2024 08:00:00 AM Scheduled Provider: Location:[facility] Appointment Type: Medicare Wellness Subsequent Future Scheduled Tests Laboratory* HgbA1c 03/27/22 * HgbA1c 06/25/22 * HCV Antibody RFX to Quant PCR 01/26/23 [facility] Evaluation + Plan note Future Appointments Appointment Date:03/04/2023 08:45:00 AM Scheduled Provider: Location:[facility] Appointment Type:Surgery FT Appointment Date:03/20/2023 09:00:00 AM Scheduled Provider:Christopher WELLS DO, FAAFP Location:[facility] Appointment Type:FM Open Appointment Date:03/23/2023 08:30:00 AM Scheduled Provider:Mara Pastor PA-C [facility] Appointment Type:Pain Management - Follow Up (FT) Appointment Date:02/01/2024 08:00:00 AM Scheduled Provider: Location:[facility] Appointment Type: Medicare Wellness Subsequent Future Scheduled Tests Laboratory* HgbA1c 03/27/22 * HgbA1c 06/25/22 * HCV Antibody RFX to Quant PCR [facility]/26/23 [facility] App[facility]ments Appointment Date:03/23/2023 08:30:00 AM Scheduled Provider:Mara Psator PA-C [facility] Appointment Type:Pain Management - Follow Up (FT) Appointment Date:07/28/2023 08:00:00 AM Scheduled Provider:Christopher WELLS DO, FAAFP Location:[facility] Appointment Type:FM Open Appointment Date:02/01/2024 08:00:00 AM Scheduled Provider: Location:[facility] Appointment Type: Medicare Wellness Subsequent Future Scheduled Tests Laboratory* HgbA1c 1/12/23 * HgbA1c 06/25/22 * HCV Antibody RFX to Quant PCR 01/26/23 [facility] Evaluation noteNo assessment information available [facility] Work Phone: Evaluation noteNo InformationNort Treasure Data Other Evaluation note* Diagnosis Atherosclerosis of [place] coronary artery of [place] heart without angina pectoris Status post coronary angioplasty Postsurgical percutaneous transluminal coronary angioplasty status Essential hypertension Unspecified essential hypertension Hyperlipidemia, unspecified hyperlipidemia type PVD (peripheral vascular disease) ([facility]) Unspecified peripheral vascular disease Stage 3 chronic kidney disease, unspecified whether stage 3a or 3b CKD ([facility]) Sleep apnea, unspecified type documented in this encounter [facility] Work Phone: History general Narrative - [...] stent 3 STENTS Hospitalization History see above [employer] Other Hisqvqu general Narrative - Reported* Type Description Date [...] LEG ANGIOPLASTY 03/2022 Hospitalization History see above [employer] Other Hospital course Narrative No data available for this section [facility] Discharge instructions No data available for this section [facility] Progress note No data available for this section [facility] Consultation (Routine) - Authorized Specialty Diagnoses / Procedures Referred By Fariha t Referred To Contact Cardiology Diagnoses Atherosclerosis of [place] coronary artery of [place] heart without angina pectoris Status post coronary angioplasty Essential hypertension Procedures Follow Up In Cardiology Fariha Guidry MD [address] [facility], [place] [address] [place] [id number] Fariha Guidry MD [address] [facility], [place] [address] [place] [address] Referral ID Status Reason Start Date Expiration Date V isits Requested Visits Authorized [id number] Authorized 02/12/2023 02/12/[address] [facility] Work Phone: Chief Complaint * EVON [...] * 5. Diabetes, managed by endocrinology in [place]. A1c remains above target * 6. Hypertension completely under control. * 7. High-risk medication with Xarelto, so far well-tolerated. Takes baby aspirin twice weekly * 8. Stage III chronic kidney disease to be monitored closely * 9. Recent diagnosis of intermittent claudications and PAD followed by vascular surgery Dr. Fredy Kaplan, she is currently going through walking exercise program * Fariha Guidry MD, [facility] Summary Purpose Family History Relationship Condition [...] Provider Active [facility] Attending Provider Active [employer] Relationship Specialty Start Date End Date Christopher Wells DO [address] [place] [facility]- [address] [address] PCP - General 08/02/18 INFORMATION SOURCE (unrecogn ized section and content) DATE CREATED AUTHOR 01/16/2022 [facility] DATE CREATED AUTHOR AUTHOR'S ORGANIZ ATION 01/16/2022 [employer] DATE CREATED AUTHOR AUTHOR'S ORGANIZ ATION 09/19/2022 [facility] DATE CREATED AUTHOR AUTHOR'S ORGANIZ ATION 02/14/2023 [facility] DATE CREATED AUTHOR AUTHOR'S ORGANIZ ATION 02/28/2023 [facility] DATE CREATED AUTHOR AUTHOR'S ORGANIZ ATION 03/19/2023 [facility] EPIC DATE CREATED AUTHOR AUTHOR'S ORGANIZ ATION 04/12/2023 [facility] REASON FOR VISIT (unrecogniz ed [...] BE BASED ON THE PRIMARY CLINICAL RECORDS. [facility]. provides no warranty or guarantee of the accuracy or completeness of information in this document.
== END 2023-05-25 07:56 | disposition home or self-care (01) ==
LOC: VC 07:55
PROVIDERS: PCP Radiology Diagnostic Radiology; Visit Provider Radiology Diagnostic Radiology
DX: I83.813 Varicose veins of bilateral lower extremities with pain (principal)
CPT/HCPCS: 36466

== ENCOUNTER 2023-06-01 07:49 | Outpatient (OUT) | payer MEDICARE, BC, SELFPAY ==
--- OUTSIDE RECORDS SUMMARY | 2023-06-01 07:53 | XMS_ITS | CCD ---
Author Name Unknown Address [email or web address] [place] [address] Organization [facility] Care Team Providers Care Personal Lines Underwriter Name Role Phone Christopher Wells Unavailable Unavailable Unavailable Christopher WELLS Primary Care Physician [phone] Bertha Swanson Unavailable Unavailable Unavailable Unavailable Jairo, [...] Unavailable DO Christopher Wells Primary Care Provider [phone] MD Miguel Membreno Attending Provider Renetta Barahona Unavailable Dr. Christopher Wells Primary Care Unavailable Jairo, Dr. Fariha Norwood Attending Carolina vailable DO Christopher Wells Primary Care Provider [phone] MD Miguel Membreno Attending Provider [phone] [facility] Bar[facility]ona Attending Provider Christopher Wells DO [...] Attending Unavailable Dolce, Denton Jason Referring Unavailable Westford, Catrachito D Referring Unavailable Westford, Catrachito Gomez Attending Unavailable Westford, Catrachito D Admitting Unavailable KAPLE, Christopher A [...] Cerda Admitting Unavailable Gary Cerda Attending Unavailable Westford, Catrachito D Referring Unavailable KAPLE, Christopher A Attending Unavailable KAPLE, Christopher A Admitting Unavailable KAPLE, Christopher A Referring Unavailable Westford, Catrachito D Referring Unavailable Westford, Catrachito D Attending Unavailable Westford, Catrachito D Admitting Unavailable Osmin, Linda A [...] Drug Allergy 023 Unknown (qualifier value), Diarrhea [facility] 250 DO Work Phone: (20 sources) hydroCHLOROthiazide; Translations: [hydroCHLOROthiazide CAPS] Drug Allergy 023 Diarrhea [facility] 250 DO Work Phone: (20 sources) hydroCHLOROthiazide / Spironolactone; Translations: [Aldactazide] Drug Allergy 023 Weal (disorder), Diarrhea [facility] 250 DO Work Phone: (20 sources) Lisinopril; Translations: [Zestril] Drug Allergy 023 Diarrhea (finding), Diarrhea [facility] 250 DO Work Phone: (20 sources) metFORMIN; Translations: [Glucophage] Drug Allergy 023 [facility] DO Work Phone: (20 sources) valsartan; Translations: [Diovan] Drug Allergy 023 Unknown (qualifier value), Diarrhea [facility] 250 DO Work Phone: (20 sources) hydroCHLOROthiazide / Lisinopril; Translations: [hydrochlorothiazide-l isinopril] Drug Allergy Diarrhea (finding) [facility] (20 sources) Terazosin; Translations: [terazosin] Drug Allergy Unknown, Unknown Reaction [facility] (9 sources) metFORMIN Drug Allergy Unknown Localsensor Other (7 sources) Doxazosin; Translations: [DOXAZOSIN] Drug Allergy Unknown Reaction [facility] (6 sources) hydroCHLOROthiazide; Translations: [HYDROCHLOROTHIAZIDE] Drug Allergy Unknown Reaction, Diarrhea [facility] (6 sources) Lisinopril; Translations: [LISINOPRIL] Drug Allergy Unknown Reaction [facility] (6 sources) metFORMIN; Translations: [METFORMIN] Drug Allergy Unknown Reaction, Diarrhea [facility] (5 sources) pioglitazone; Translations: [pioglitazone] Drug Allergy Unknown Reaction [facility] (5 sources) Spironolactone; Translations: [spironolactone] Drug Allergy Unknown Reaction, Hives [facility] (6 sources) valsartan; Translations: [VALSARTAN] Drug Allergy Unknown Reaction [facility] (1 source) SPIRONOLACTON-HYDROCHL OROTHIAZ; Translations: [SPIRONOLACTON-HYDROCH LOROTHIAZ] Propensity to adverse reactions to drug (disorder) [address] [place] [address] Repository (1 source) Terazosin Drug Allergy 023 [facility] Repository (1 source) Lisinopril; Translations: [...] Wheezing, 8.5 gm, Refill(s) 0, [id number], 165, cm, 04/10/23 9:26:00 EST, Height/Length Dosing, [...] 90 tab(s), Refills(s) 3, [facility]: [id number], 166, cm, 10/28/21 9:59:00 EDT, Height/Length Dosing, [...] 6 tab(s), Refills(s) 0, [facility]: [facility] #[id number], 165, cm, 04/10/23 9:26:00 EST, Height/Length Dosing, [...] 90 tab(s), Refills(s) 1, [facility]: [facility] #[id number], 165, cm, 09/10/22 8:16:00 EDT, Height/Length Dosing, 97.4, kg, 09/10/22 8:16:00 EDT, Weight Dosing Start Date: 10/27/22 Status: Ordered cilostazol 50 mg oral tablet (10 sources) Phosphodiesterase 3 Inhibitor Start: 10-08-2021 take 1 tablet by mouth twice daily Pletal 50 mg oral tablet 50 mg = 1 tab(s), Oral, BID, # 60 tab(s), Refills(s) 5, [facility]: [facility] #[id number], 165, cm, 09/24/21 8:39:00 EDT, Height/Length Dosing, [...] 20 cap(s), Refills(s) 1, [facility]: [facility] #[id number], 165, cm, 12/18/22 8:28:00 EDT, Height/Length Dosing, [...] 5 EA, Refills(s) 11, [facility]: [facility] #[id number], 165, cm, 06/11/22 9:10:00 EDT, Height/Length Dosing, 97.6, kg, 06/11/22 9:10:00 EDT, Weight Dosing Start Date: 08/22/22 Status: Ordered Start: 08-22-2022 inject 30 [IU] by griffin bcutaneous injection twice daily Tresiba FlexTouch 100 units/mL subcutaneous solution 30 unit(s), SubCutaneous, BID, Dx E11.65, # 5 EA, Refills(s) 11, [facility]: [facility] #[id number], 165, cm, 06/11/22 9:10:00 EDT, Height/Length Dosing, [...] # 5 EA, Refills(s) 11, [facility]: [facility], 166, cm, 05/10/21 8:27:00 EST, [...] 0.4 MG Sublingual Active polyethylene glycol 3350 893442 mg / potassium chloride 1480 mg / sodium bicarbonate 5720 mg / sodium chloride 68548 mg powder for oral solution (1 source) Osmotic Laxative Start: 05-05-2022 NuLYTELY Sara ry oral powder for reconstitution See Instructions, 1 EA, Refill(s) 0, Prior to colonoscopy., [facility] #[id number], 165, cm, 05/05/22 13:40:00 EST, Height/Length Dosing, [...] 21 tab(s), Refills(s) 0, Pharmacy: [facility] #[id number], 165, cm, 04/10/23 9:26:00 EST, Height/Length Dosing, [...] 05, 2018 11:00pm Has been instructed by [facility] to stop 2 days before heart cath Start: 08-06-2018 take 20 mg by mouth once daily Rivaroxaban Active 20 MG PO Every evening August 06, 2018 12:00am Has been instructed by [facility] to stop 2 days [...] capsule Indications: Mixed hyperlipidemia , Atherosclerosis of chipewwa coronary artery of chipewwa heart without angina pectoris TAKE 1 CAPSULE BY MOUTH TWICE A DAY 180 capsule 3 01/19/2023 Active Start: 04-07-2022 End: 02-18-2023 Coenzyme Q10 Discontinued PO Daily April 07, 2022 12:00am February 18, 2023 9:26am Start: 11-12-2021 take [facility] by [facility] CoQ10 100 MG Oral [...] 90 cap(s), Refills(s) 3, [facility]: [facility] #[id number], 165, cm, 05/21/22 12:25:00 EST, Height/Length Dosing, 95.2, kg, 05/21/22 12:25:00 EST, Weight Dosing Start Date: 05/26/22 Status: Ordered Start: 04-17-2021 take 1 capsule by [facility] once daily potassium chloride 10 mEq [...] sources) Coronary atherosclerosis; Translations: [Coronary atherosclerosis of chipewwa coronary artery] Onset: 09-18-19 23 09-11-2020 Chronic Coronary atherosclerosis and other heart disease (16 sources) Past history of procedure; Translations: [Percutaneous transluminal coronary angioplasty status] Onset: 01-10-2002-12-2023 Episodic Coronary atherosclerosis and other heart disease (3 sources) Coronary atherosclerosis and other heart disease; Translations: [Atherosclerosis of chipewwa arteries of left leg with ulceration of [...] limb due to atherosclerosis; Translations: [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, left leg] [...] medications] Episodic Other aftercare (1 source) Other termite control representative (current) drug therapy; Translations: [Other termite control representative (current) drug therapy] Onset: 09-18-19 Episodic Other aftercare (1 source) Long-term current use of drug therapy; Translations: [Other correction (current) drug therapy] Onset: 01-27-20 Episodic Other aftercare (1 source) Long-term current use of anticoagulant; Translations: [long term care administrator (current) use of anticoagulants] Onset: 01-27-20 Episodic Other aftercare (2 sources) Long-term current use of insulin; Translations: [[facility] (current) use of insulin] Onset: 01-27-20 Episodic [...] Consent for Treatmenton 03-17 Consent for Treatment [id number]#1.00T IFF Normal [facility] Discharge Instructionson Discharge Instructions [id number]#1.00 TIFF Normal [facility] ED Clinical Summaryon 2023 ED Clinical Summary (Inserted Image. Carolina ble to display) [place] [id number] ED Clinical Summary Person Information Name: EVON CORCORAN Laura/[facility] Age: 72 Years : 1950 Sex: Female Language: Indonesian PCP: Christopher WELLS DO, FAAFP Marital Status: [...] 04/10/2023 11:23:38 04/10/2023 11:23:38 04/10/2023 11:23:38 ADDRESS: [address] [place] [phone] [facility] DOC NOTES: MEDICAL INFORMATION: Prescriptions Given: New Medications [id number], [address] [place], [place] [id number], [phone] albuterol (Albuterol (Eqv-ProAir HFA) 90 mcg/inh inhalation [...] With: Address: When: Christopher Gusman, [place] [address] Business (1) In 3 days [...] No known sick contacts. She is taking obhl-tjr-fjyfwyj cough and cold medications. Review of Systems [...] Wheezing, 8.5 gm, Refill(s) 0, [facility] #[id number], 165, cm, 04/10/23 9:26:00 EST, Height/Length Dosing, 96.9, kg, 04/10/23 9:26:00 EST, Weight Dosing azithromycin, = 1 packet(s), Oral, As Directed, as directed on package labeling, X 5 day(s), # 6 tab(s), Refills(s) 0, Pharmacy: [facility] #[id number], 165, cm, 04/10/23 9:26:00 EST, Height/Length Dosing, 96.9, kg, 04/10/23 9:26:00 EST, Weight Dosing predniSONE, 60 mg = 3 tab(s), Oral, Daily, X 7 day(s), # 21 tab(s), Refills(s) 0, Pharmacy: [facility] #[id number], 165, cm, 04/10/23 9:26:00 EST, Height/Length Dosing, [...] WELLS In 3 days 04/13/2023 EST [address], [facility] [place] [address]- [facility] (1) Additional Instructions: Patient Education Acute Bronchitis, Adult Attestation Patient seen and evaluated by the physician miner assistant. Attending physician was present in the emergency department and supervised care. This visit was performed by both the physician and an APC. I performed all aspects of the MDM as documented. This report was transcribed using voice recognition software. Every effort was made to ensure accuracy, however, inadvertently computerized correction worker mistakes may be present. Appropriate healthcare PPE was used in evaluating this patient. The patient was placed in a mask. The healthcare provider was wearing mask, gloves, and utilizing proper hand hygiene. All equipment was properly cleansed. Problem List/Past Medical History Ongoing 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 Chronic renal impairment, stage 3a Claudication [...] Follow these instructions at home: ? Take olmx-vbv-vjeraqa and prescription medicines only as told by [...] and water are not available, use hand signing agent. ? Avoid contact with people who have [...] is easier to cough up. ? Take dqpl-rti-btetlrb and prescription medici (more content not included)... Normal [facility] ED Patient Summaryon 024 ED Patient Summary (Inserted Image. [place] ble to display) [place] [id number] Patient Discharge Instructions Person Information Name: EVON CORCORAN Age: 72 Years Arrival Date: 04/10/2023 09:13:22 Discharge Diagnosis: Bronchitis Primary Care Physician: Christopher WELLS DO, FAAFP Provider Information Primary Provider: Malvin Gupta M.D. [employer] Supervisor:Radhames Suarez PA-C The exam and treatment you received in the Emergency Department were for an urgent problem and are not intended as complete care. It is important that you follow up with a doctor, nurse practitioner, or physician?s miner assistant for ongoing care. If your symptoms [...] Follow-up Instructions: With: Address: When: Christopher WELLS [address] [place] [address] [place] [id number] [facility] () In 3 days 04/13/2023 In the event that this physician does not participate in your insurance network, please consult with your insurance company to find a nearby participating provider. Patient Education Materials: Acute Bronchitis, Adult A MESSAGE TO ALL PATIENTS REGARDING OPIOIDS PRESCRIPTION OPIOIDS: WHAT YOU NEED TO KNOW Prescription opioids can be used to help relieve hazdclst-jq-ilwaru pain and are often prescribed following a [...] be struggling with addiction, tell your health hospice care consultant and ask for guidance or call SAMHSA?S National Helpline at 0-454-389-HELP. v Yobany (more content not included)... Normal [...] MD Transcribed by: KATEY Technologist: JUAN MIGUEL [facility] Consent for Treatmenton Consent for Treatment [id number]#1.00T IFF [facility] Consultation Noteon 03-23-19 24 Consultation Note Patient: EVON CORCORAN Age: 72 years Sex: Female : 1950 Associated Diagnoses: None Author: aMra Pastor PA-C Subjective Chief complaint 03/23/2023 8:36 [...] 11, Dx: E11.9 Directions: BID, [facility][id number], Supply, 165, cm, 06/11/22 9:10:00 EDT, Height/Length Dosing, 97.6, kg, 06/11/22 9:10:00 EDT, Weight Dosing Tresiba FlexTouch 100 units/mL subcutaneous solution: 50 unit(s), SubCutaneous, Daily, Dx E11.65, # 5 EA, Refills(s) 11, [facility]: [facility] #[id number], 165, cm, 06/11/22 9:10:00 EDT, Height/Length Dosing, 97.6, kg, 06/11/22 9:10:00 EDT, Weight Dosing chlorthalidone 25 mg Tab: 25 mg = 1 tab(s), Oral, Bedtime, # 90 tab(s), Refills(s) 1, [facility] #[id number], 165, cm, 09/10/22 8:16:00 EDT, Height/Length Dosing, 97.4, kg, 09/10/22 8:16:00 EDT, Weight Dosing potassium chloride 10 mEq Cap-ER: 10 mEq = 1 cap(s), Oral, Daily, # 90 cap(s), Refills(s) 3, [facility]: [facility] #[id number], 165, cm, 05/21/22 12:25:00 EST, Height/Length Dosing, [...] Problems HTN - Hypertension / SNOMED CT 7039451575 / Confirmed Familial hypercholesteremia / SNOMED CT 8840799366 / Confirmed Non-smoker / SNOMED CT 76800330 / Confirmed 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 / SNOMED CT 14626251 / Confirmed History of DVT in adulthood / SNOMED CT 7100120978 / Confirmed Type 2 diabetes mellitus with hypercholesterolemia / SNOMED CT 027481030 / Confirmed linked DM with hypercholesterolemia per outpatient CDI policy. Type 2 diabetes mellitus with stage 3 chronic kidney disease / SNOMED CT 696191551 / Confirmed linked DM with CKD per outpatient CDI policy. Mild nonproliferative diabetic retinopathy of both eyes / SNOMED CT 102198827 / Confirmed noted in 08/21/2019 Diabetic Eye Exam. added per outpatient CDI policy. 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 Normal [facility] Comment on above: Result Comment: Elec tronically Signed By: Dawit BARTH, Mara\.br\Date and Time Signed: 03/23/23 09:07 EST Legal Correspondence Officeo n 03-23-2023 Legal Correspondence Office [id number]#1.00 TIFF Normal [facility] Office/Clinic Note-Physician on 03-23-2023 Office/Clinic Note-Physician [id number]#1.00 TIFF Normal [facility] Patient Correspondenceon Patient Correspondence [id number]#1.00 TIFF Normal [facility] Patient Correspondence [id number]#1.00 TIFF Normal [facility] Patient Correspondence [id number]#1.00 TIFF Normal [facility] Patient Correspondence [id number]#1.00 TIFF Normal [facility] Patient History Officeon Patient History Office [id number]#1.00 TIFF Normal [facility] Family Medicine [...] re: potential procedure: Clinically currently asymptomatic and lck-obml-ldwcaahrgpp. Please see Dr. Castro's consultation 2. BMI [...] and exercise. 4. Long-term insulin use (Z79.4: [facility] (current) use of insulin) Dr Ssbbagh following. 5. Mild nonproliferative diabetic retinopathy of both eyes (E11.3293: Type 2 diabetes mellitus with mild nonproliferative diabetic retinopathy without macular edema, bilateral) Follow-up with separations scientist 6. Type 2 diabetes mellitus with hypercholesterolemia [...] plan? Your health care provider or certified procedural coder can help you make a plan for [...] stroke). Where to find more information ? [place] [employer]: www.diabetes.org Summary ? Exercising regularly is important for overall health, especially for people who have diabetes mellitus. ? Exercising has many health benefits. It increases muscle strength and bone density and reduces body fat and stress. It also lowers and controls blood glucose. ? Your health care provider or certified procedural coder can help you make an activity plan [...] provider. Document Revised: 11/28/2019 Document Reviewed: 11/28/2019 [employer] Patient Education ? 2022 [employer]. [facility] Nursing Note - Woundon 03-19 Nursing Note - Wound [id number]#2.00 TIFF [facility] Consultation Noteon 03-07-20 23 Consultation Note [id number]#1.00T IFF [facility] CHEMISTRYOrdered By: Lab ROP User on 03-04-2023 Glucose [Mass/Vol] 78 mg/dL Normal 55 - 99 mg/dL [facility] C POC Subsection POC Device SN [id number] Invalid Interpretation Code [facility] POC Subsection POC Username MACIE POTTS Invalid Interpretation Code [facility] POC Subsection Sodium [Moles/Vol] 096397540 mmol/L Invalid Interpretation Code [facility] POC Subsection Capillary Glucose POCon 02-14 Glucose [Mass/Vol] 78 mg/dL Normal 55-99 [facility] Comment on above: Performed By: #### 2 [id number] #### [facility] [address] [place] [address] Consent for Procedure/Surger yon 03-04-2023 Consent for Procedure/Surgery [id number]#1.00 TIFF [facility] Consent for Treatmenton 02-14 Consent for Treatment [id number]#1.00T IFF [facility] Discharge Instructionson Discharge Instructions [id number]#1.00 TIFF Normal [facility] Insurance Correspondenceon 1 05-05-2022 Insurance Correspondence [id number]#1.00 TIFF Normal [facility] IntraOperative Documentson 1 05-05-2022 IntraOperative Documents [id number]#1.00 TIFF Normal [facility] Main OR Intraoperative Recor don 03-04-2023 Main OR Intraoperative Record IntraOp Document Type FTPM Summary Primary Physician: Nicola Tapia DO Finalized Date/Time: 03/04/23 09:06:01 Pt. Name: EVON CORCORAN Brent Veras/Sex: 1950 Female Med Rec #: [id number] Physician: Nicola Tapia DO Financial #: [id number] Pt. Type: P Room/Bed: / Admit/Disch: 03/04/23 [...] Leanne Montenegro Role Performed Surgeon - Primary Clinical Documentation Clerk - Primary Scrub - Primary Time In 03/04/23 09:01:00 03/04/23 09:01:00 03/04/23 09:01:00 Time Out 03/04/23 09:06:00 03/04/23 09:06:00 03/04/23 09:06:00 Procedure HIP INJECTION(Left) HIP INJECTION(Left) HIP INJECTION(Left) Comments Last Modified By: Crow ECHAVARRIA, Estrellita Maria RN, Estrellita Ryder RN 03/04/23 09:05:56 03/04/23 09:05:56 03/04/23 09:05:56 Entry 4 Case Attendee Ervin Mckeon Role Performed Wet End Helper Time In 03/04/23 09:01:00 Time Out 03/04/23 [...] and tissue Entry 1 Skin Integrity Intact, Concepcion, Warm, and Skin Abnormality No Dry Outcomes [...] EVON CORCORAN/Sex: 1950 Female Med Rec #: [id number] Physician: Nicola Tapia DO Financial #: [id number] Pt. Type: P Room/Bed: / Admit/Disch: 03/04/23 [...] Signed By: Macie Potts RN 03/04/23 08:19 [facility] Consent for Treatmenton 02-13 Consent for Treatment [id number]#1.00T IFF Normal [facility] Multi-Wound Charton 03-03-20 Multi-Wound Chart [id number]#1.00 TIFF Normal [facility] Nursing Assessment - Woundon 03-03-2023 Nursing Assessment - Wound [id number]#1.00 TIFF Normal [facility] Physician Orderon 03-03-2023 Physician Order [id number]#1.00 TIFF Normal [facility] Progress Note - Woundon 02-13 Progress Note - Wound [id number]#1.00 TIFF [facility] Correspondence - Woundon Correspondence - Wound [id number]#1.00 TIFF [facility] Consent for Procedure/Surger yon 02-24-2023 Consent for Procedure/Surgery [id number]#1.0 0TIFF [facility] Consent for Treatmenton 02-13 Consent for Treatment [id number]#1.00T IFF [facility] Multi-Wound Charton 02-25-20 Multi-Wound Chart [id number]#1.00 TIFF [facility] Nursing Assessment - Woundon 02-24-2023 Nursing Assessment - Wound [id number]#1.00 TIFF [facility] Nursing Note - Woundon 02-24 Nursing Note - Wound [id number]#1.00 TIFF [facility] Physician Orderon 02-24-2023 Physician Order [id number]#1.00 TIFF [facility] Procedure - Woundon 02-25-20 Procedure - Wound [id number]#1.00 TIFF [facility] Progress Note - Woundon 02-13 Progress Note - Wound [id number]#1.00 TIFF [facility] Retail - Clinical Noteon Retail - Clinical Note [id number]#1.00T IFF [facility] US venous mapping BI loweron 02-19-2023 US venous mapping BI lower [facility] [address] [place] [address] [place] [address] Ultrasound Report Signed Patient: Evon Corcoran MR#: [id number] : 1950 Acct:[id number] Age/Sex: 72 / F ADM Date: 02/18/23 Loc: IR Room: Type: [facility] Attending Dr: Miguel Membreno MD Ordering Provider: Miguel Memberno MD Date of Service: 02/18/23 US/US venous [...] Miguel Membreno M.D.02/19/2023 1:30 PM Dictation Location: [place] [address] Tech: Isabell Duarte Transcribed By: RICH 02/19/23 1330 Dictated By: Miguel Membreno MD 02/19/23 1327 Signed By: 02/19/23 1330 Normal [facility] Blood Urea Nitrogenon 2022 Urea nitrogen [Mass/Vol] 25 mg/dL Normal 7-25 [facility] Comment on above: Performed By: #### C REAT, BUN #### [facility] [address] [place] [id number] [place] Creatinineon 02-18-2023 Creatinine [Mass/Vol] 1.18 mg/dL Normal 0.60-1.20 [facility] Comment on above: Performed By: #### C REAT, BUN #### [facility] [address] [place] [address] [place] Creatinine Clr Calc Pharmacy 49.07 Normal [facility] Comment on above: Result Comment: PERF ORMED BY: [place] [address] PATHOLOGIST AFLOAT CRYPTOLOGIC MANAGER AIRAM ROMEO M.D. Performed By: #### C REAT, BUN #### [facility] [address] [place] [address] [place] GFR/1.73 sq M.predicted MDRD (S/P/Bld) [Vol rate/Area] 48.770 mL/min/{1.73_m2} Normal [facility] Comment on above: Performed By: #### C REAT, BUN #### [facility] [address] [place] [address] [place] Creatinine [Mass/volume] in Serum or PlasmaOrdered By: Miguel Membreno on 02-18-2023 Creatinine [Mass/Vol] 1.18 mg/dL 0.60-1.20 [facility] Lab Reportson 02-18-2023 Lab Reports [id number]#1.00T IFF Normal [facility] No Panel InformationOrdered By: Miguel Membreno on 02-18-2023 Estimated GFR (CKD-EPI) 48.770 mL/Min [facility] Creatinine Clearance (Chem 49.07 [facility] Operative Reporton Operative Report [id number] 204 [id number]#1.00T IFF Normal [facility] Retail - Clinical Noteon Retail - Clinical Note [id number]#1.00T IFF Normal [facility] Retail - Clinical Note [id number]#1.00T IFF Normal [facility] Urea nitrogen [Mass/volume] in Serum or PlasmaOrdered By: Miguel Membreno on 02-18-2023 Urea nitrogen [Mass/Vol] 25 mg/dL 10-07 [facility] Insurance Correspondenceon 1 04-20-2022 Insurance Correspondence [id number]#1.00 TIFF Normal [facility] Physician Orderon 02-17-2023 Physician Order [id number] 202 [id number]#1.00 TIFF Normal [facility] CHEMISTRYOrdered By: Lab ROP User on 02-16-2023 Glucose [Mass/Vol] 311 mg/dL High 55 - 99 mg/dL FT C POC Subsection POC Device SN [id number] Invalid Interpretation Code [facility] POC Subsection POC Username RONI CHOWDHURY Invalid Interpretation Code [facility] POC Subsection Sodium [Moles/Vol] 083346390 mmol/L Invalid Interpretation Code [facility] POC Subsection Capillary Glucose POCon Glucose [Mass/Vol] 311 mg/dL High 55-99 [facility] Comment on above: Performed By: #### 2 [id number] #### [facility] [address] [place] [address] Consent for Treatmenton Consent for Treatment [id number]#1.00T IFF [facility] Consent for Treatment [id number]#1.00T IFF [facility] Main OR Preoperative Recordo n 02-16-2023 Main OR Preoperative Record Holding Area Document Type [facility] Summary Primary Physician: Gary Cerda MD Finalized Date/Time: 02/16/23 13:36:16 Pt. Name: YOKASTA CORCORANLAW Veras/Sex: 1950 Female Med Rec #: [id number] Physician: Gary Cerda MD Financial #: [id number] Pt. Type: P Room/Bed: / Admit/Disch: 02/16/23 [facility] Multi[facility]Wound Charton 02-17-20 Multi-Wound Chart [id number] 201 [id number]#1.00 TIFF Normal [facility] Nursing Assessment - Woundon 02-16-2023 Nursing Assessment - Wound [id number]#1.00 TIFF Normal [facility] Nursing Note - Woundon 02-16 Nursing Note - Wound [id number]#1.00 TIFF Normal [facility] Patient Correspondenceon Patient Correspondence [id number]#1.00T IFF Normal [facility] Consent for Procedure/Surger yon 02-10-2023 Consent for Procedure/Surgery [id number]#1.00 TIFF Normal [facility] Consent for Treatmenton 01-15 Consent for Treatment [id number]#1.00T IFF Normal [facility] Multi-Wound Charton 02-11-20 Multi-Wound Chart [id number] 102 [id number]#1.00 TIFF Normal [facility] Nursing Assessment - Woundon 02-10-2023 Nursing Assessment - Wound [id number]#1.00 TIFF Normal [facility] Nursing Note - Woundon 02-10 Nursing Note - Wound [id number]#1.00 TIFF Normal [facility] Physician Orderon 02-10-2023 Physician Order [id number] 102 [id number]#1.00 TIFF Normal [facility] Procedure - Woundon 02-11-20 Procedure - Wound [id number] 102 [id number]#1.00 TIFF Normal [facility] Progress Note - Woundon 01-15 Progress Note - Wound [id number]#1.00 TIFF Normal [facility] Insurance Correspondenceon 04-05-2022 Insurance Correspondence [id number]#1.00 TIFF Normal [facility] Insurance Correspondenceon 04-04-2022 Insurance Correspondence [id number]#1.00 TIFF [facility] Patient Letter [facility] [place] Patient Letter [facility] January 29, 2023 EVON CORCORAN [address] [place] [address] EVON CORCORAN L 1950 We are pleased [...] in the following areas: ? Assign a Architectural Superintendent who will work with you to help [...] phone contact on 02/19/2023 at 08:00 AM. [facility] Chronic Architectural Superintendent [phone] opt. #2 [facility] Consent for Procedure/Surger yon 01-27-2023 Consent for Procedure/Surgery [id number]#1.00 TIFF [facility] Consent for Treatmenton 01-14 Consent for Treatment [id number]#1.00T IFF [facility] Multi-Wound Charton 01-28-20 23 Multi-Wound Chart [id number] 102 [id number]#1.00 TIFF [facility] Nursing Assessment - Woundon 01-27-2023 Nursing Assessment - Wound [id number]#1.00 TIFF [facility] Nursing Note - Woundon 01-27 Nursing Note - Wound [id number]#1.00 TIFF [facility] Physician Orderon 01-27-2023 Physician Order [id number] 102 [id number]#1.00 TIFF Normal [facility] Procedure - Woundon 01-28-20 Procedure - Wound [id number] 102 [id number]#1.00 TIFF Normal [facility] Progress Note - Woundon 01-14 Progress Note - Wound [id number]#1.00 TIFF Normal [facility] Ambulatory Visit [...] With: Denton Mares DPM Where: [facility] [place] Thursday 9:45 AM EST With: Where: [facility] Thursday 8:45 AM EST With: Gary Cerda MD Where: [facility] 2022 8:00 AM EST With: Linda Solorio CNP Where: [facility] Invalid Interpretation Code [address], [place] [address]- \.br\ Thursday 8:00 AM EST \.br\ With:\.br\ Where: [facility] Primary Care [facility] Family [...] of clutter to prevent tripping and/or falling. [place] Advance Directives reviewed. Documents remain at home, [...] Labs were ordered, to be completed with [facility]. Mammogram and DEXA scan up to date, [...] as directed. 3. Long-term insulin use (Z79.4: long term care administrator (current) use of insulin) Patient voices understanding with proper use of insulin dosage. Follows up with labs, DM supplies and dosage adjustments as needed. Reviewed available sites that can be used to administer Insulin, patient voices understanding. Will continue as directed. 4. Chronic renal impairment, stage 3a (N18.31: Chronic kidney disease, stage 3a) Follows with Pie Crimping Machine Operator, Dr. Núñez. Encouraged with avoiding NSAID's. Healthy Kidney Nutritional education material provided. Goals to keep blood sugars and blood pressure under better control to reduce cardiovascular risk factors. Medications and blood work monitored with visits. Continues taking statin medication daily. 5. 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 Stressed importance of loosing weight as being overweight does produce more lipids. Risks may also increase with a family history of hyperlipidemia. Encouraged with healthy dietary choices to reduce risk factors associated with CVA. Will continue to follow up with labs as directed. 6. Anticoagulated (Z79.01: [facility] (current) use of anticoagulants) Taking Xarelto and [...] of Hepatitis C for people born between 1614-8853. Hand (more content not included)... Normal [facility] Comment on above: Result Comment: Elec tronically Signed By: Christopher WELLS DO, FAAFP\.br\Date and Time Signed: 01/26/23 17:15 EST\.br\Electronically Co-Signed By: Lesly West LPN\.br\Date and Time Co-Signed: 01/26/23 09:21 EST Nursing Assessment - Woundon 01-26-2023 Nursing Assessment - Wound [id number]#2.00 TIFF [facility] Nursing Note - Woundon 01-26 Nursing Note - Wound [id number]#2.00 TIFF [facility] Patient Educationon 01-27-20 Patient Education Caregiving [...] Keep items that you use often in dmbx-ti-oyohg places. Lower the shelves around your home [...] the way. ? Do not use floor nepali or wax that makes floors slippery. What [...] Control and Prevention, STE[place]: www.cdc.gov ? National [place] on Aging: www.[place].nih.gov Contact a doctor if: [...] provider. Document Revised: 12/02/2021 Document Reviewed: 10/03/2020 [employer] Patient Education ? 2022 [employer]. Endocrinology Diabetes Melli (more content not included)... [facility] Screenson 01-26-2023 Screens [id number] 021 [id number]#1.00TI FF [facility] Multi-Wound Charton 01-24-20 23 Multi-Wound Chart [id number] 105 [id number]#1.00 TIFF [facility] Physician Orderon 01-23-2023 Physician Order [id number] 105 [id number]#1.00 TIFF [facility] Consent for Treatmenton Consent for Treatment [id number]#1.00T IFF [facility] Consent for Procedure/Surger yon 01-14-2023 Consent for Procedure/Surgery [id number]#1.00 TIFF [facility] Consent for Procedure/Surgery [id number]#1.00 TIFF [facility] Nursing Assessment - Woundon 01-14-2023 Nursing Assessment - Wound [id number]#1.00 TIFF [facility] Nursing Note - Woundon 01-14 Nursing Note - Wound [id number]#2.00 TIFF [facility] CHEMISTRYOrdered By: Cynthia Serrano se on 01-13-2023 HbA1c (Bld) [Mass fraction] 11.5 % High <=5.9% [facility] ChemAutoSS Consent for Treatmenton 12-16 Consent for Treatment [id number]#1.00T IFF Normal [facility] Consent to Photographon 12-16 Consent to Photograph [id number]#1.00T IFF Normal [facility] Correspondence - Woundon Correspondence - Wound [id number]#1.00T IFF Normal [facility] Correspondence - Wound [id number]#1.00T IFF Normal [facility] Correspondence - Wound [id number]#1.00T IFF Normal [facility] [id number] 01-13-2023 HbA1c (Bld) [Mass fraction] 11.5 % High <=5.9 [facility] Comment on above: Performed By: #### 2 [id number] #### [facility] [address] [place] [address] Multi-Wound Charton 01-14-20 Multi-Wound Chart [id number] 002 [id number]#1.00 TIFF Normal [facility] Nursing Assessment - Woundon 01-13-2023 Nursing Assessment - Wound [id number]#1.00 TIFF Normal [facility] Outside Recordson 01-13-2023 Outside Records [id number] 231 [id number]#1.00T IFF Normal [facility] Patient Correspondenceon Patient Correspondence [id number]#1.00 TIFF Normal [facility] Physician Orderon 01-13-2023 Physician Order [id number] 002 [id number]#1.00 TIFF Normal [facility] Procedure - Woundon 01-14-20 Procedure - Wound [id number] 002 [id number]#1.00 TIFF Normal [facility] Progress Note - Woundon - Progress Note - Wound [id number]#1.00 TIFF Normal [facility] Insurance Correspondenceon 1 Insurance Correspondence [id number]#1.0 0TIFF [facility] Radiology Outside Office Drawer In Dobby Loom yon 01-07-2023 Radiology Outside Office Copy [id number]#1.00 TIFF [facility] Consent for Treatmenton 12-15 Consent for Treatment [id number]#1.00T IFF [facility] Consultation Noteon 01-07-20 Consultation Note Patient: [...] red blood per rectum) / SNOMED CT 867828870 / Confirmed Breast cancer screening by mammogram / SNOMED CT 587631986 / Confirmed 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 / SNOMED CT 25699532 / Confirmed Change in bowel habits / SNOMED CT 489997309 / Confirmed Chronic renal impairment, stage 3a / SNOMED CT 7667163293 / Confirmed Claudication of both lower extremities / SNOMED CT 167580224 / Confirmed Colon polyp / SNOMED CT 656085527 / Confirmed Degenerative localized arthritis of hip / SNOMED CT 417512732 / Confirmed 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 / SNOMED CT 072530782 / Confirmed Diabetes / SNOMED CT 241562519 / Confirmed Diarrhea / SNOMED CT 879984236 / Confirmed Enthesopathy of left hip region / SNOMED CT 85458053 / Confirmed Familial hypercholesteremia / SNOMED CT 3721090946 / Confirmed Hemorrhoids / SNOMED CT 256161008 / Confirmed History of colon polyps / SNOMED CT 9083315638 / Confirmed History of DVT in adulthood / SNOMED CT 0816843383 / Confirmed HTN - Hypertension / SNOMED CT 5792249044 / Confirmed Hypertensive heart and chronic kidney disease without heart failure, with stage 1 through stage 4 chronic kidney disease, or unspecified chronic kidney disease / SNOMED CT 7248220716 / Confirmed noted in 12/10/2021 Nephrology Consult Note page 3. added per outpatient CDI policy. Long-term insulin use / SNOMED CT 4331946566 / Confirmed Current Medication List includes Tresiba. added per outpatient CDI policy. Lumbar disc herniation / SNOMED CT 526715260 / Confirmed Lumbar stenosis / SNOMED CT 90674853 / Confirmed Mild nonproliferative diabetic retinopathy of both eyes / SNOMED CT 380957962 / Confirmed noted in 08/21/2019 Diabetic Eye Exam. added per outpatient CDI policy. Morbid obesity / SNOMED CT 742369618 / Confirmed Non-smoker / SNOMED CT 99148983 / Confirmed Primary ovarian failure / SNOMED CT 947698021 / Confirmed Sleep apnea / SNOMED CT 265290289 / Confirmed Type 2 diabetes mellitus with hypercholesterolemia / SNOMED CT 753195166 / Confirmed linked DM with hypercholesterolemia per outpatient CDI policy. Type 2 diabetes mellitus with stage 3 chronic kidney disease / SNOMED CT 386437445 / Confirmed linked DM with CKD (more content not included)... Normal [facility] Comment on above: Result Comment: Elec tronically Signed By: Prashant PIMENTEL, Gary Gomez\.br\Date and Time Signed: 01/06/23 09:13 EDT HIPAA Forms Officeon 023 HIPAA Forms Office [id number] [facility] [id number]#1.00 TIFF Normal [facility] Legal Correspondence Officeo n 01-06-2023 Legal Correspondence Office [id number]#1.00 TIFF Normal [facility] Legal Correspondence Office [id number]#1.00 TIFF Normal [facility] Office/Clinic Note-Physician on 01-06-2023 Office/Clinic Note-Physician [id number]#1.00 TIFF Normal [facility] Patient Correspondenceon Patient Correspondence [id number]#1.00 TIFF Normal [facility] Patient Correspondence [id number]#1.00 TIFF Normal [facility] Patient Correspondence [id number]#1.00 TIFF Normal [facility] Patient Correspondence [id number]#1.00 TIFF Normal [facility] Patient Correspondence [id number]#1.00 TIFF Normal [facility] Patient History Officeon Patient History Office [id number]#1.00 TIFF Normal [facility] Radiology Outside Office Drawer In Dobby Loom yon 01-06-2023 Radiology Outside Office Copy [id number]#1.00 TIFF Normal [facility] Consent for Treatmenton 12-14 Consent for Treatment [id number]#1.00T IFF Normal [facility] MRI Pelvis [...] Formon 1 RAD - MRI Screening Form [id number]#1.00 TIFF Normal [facility] Physician Orderon 12-24-2022 Physician Order [id number] 004 [id number]#1.00T IFF Normal [facility] Physician Order [id number]#1.00T IFF Normal [facility] Outside Records Officeon Outside Records Office [id number]#1.00 TIFF Normal [facility] Referrals Officeon Referrals Office [id number] 021 [id number]#1.00 TIFF [facility] Consultation Noteon 12-23-19 Consultation Note [id number] 002 [id number]#1.00T IFF [facility] Physician Orderon 12-22-2022 Physician Order [id number] [id number]#1.00 TIFF [facility] Ambulatory Visit Summaryon 1 Ambulatory Visit Summary EVON CORCORAN :1950 Visit Date:12/18/2022 Ambulatory Visit Instructions Your Diagnosis Enthesopathy of left hip region Hypertensive heart and chronic kidney disease without heart failure, with stage 1 through stage 4 chronic kidney disease, or unspecified chronic kidney disease Long-term insulin use BMI 36.0-36.9,adult Morbid obesity Chronic renal impairment, stage 3a 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 Type 2 diabetes mellitus with hypercholesterolemia [...] Appointments Thursday 8:00 AM EST With: Where: [facility] Primary Care Normal [address] [place] [address]- \.br\ You Need to Schedule the Following Appointments\.br\ Follow Up with RUSSELL SHEPHERD FAAFP, Christopher Montenegro, CHERISE, PED When: In 3 months\.br\ Where:\.br\ [address], [address]br\ [place] [address].br\ \.br\ Medications\.br\ What How Much When Why Instructions\.br\ New doxycycline (doxycycline hyclate 100 mg Cap) 1 Capsules By Mouth 2 times a day Venous stasis ulcer Refills: 1 Pickup at [facility]\.br\ Unchanged amlodipine (amLODIPine 5 mg Tab) 1 [...] Mouth Every day\.br\ Pharmacy Information\.br\ [id number]: [address] [place], [place] [id number] [phone]\.br\ Medications and Immunizations Administered\.br\ Not Given\.br\ influenza virus vaccine, inactivated, Patient Refuses\.br\ Allergies\.br\ Aldactazide (Hives)\.br\ Cardura (Unknown)\.br\ Diovan (Unknown)\.br\ Glucophage\.br\ Hytrin\.br\ Prinivil\.br\ Zestril (Diarrhea)\.br\ hydrochlorothiazi de-lisinopril (Diarrhea)\.br\ Problems\.br\ Ongoing - Any problem that you are currently receiving treatment for.\.br\ BRBPR (bright red blood per rectum)\.br\ Breast cancer screening by mammogram\.br\ 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 \.br\ Take or apply tgpp-wka-onggxnf and prescription medicines only as told by [...] cannot use soap and water, use hand signing agent.\.br\ ? \.br\ Change your bandage as told [...] for help if you feel david Elkins [facility] Family Medicine Office/Clini c Deliaon 12-18-2022 [...] ER daily. 3. Long-term insulin use (Z79.4: [facility] (current) use of insulin) Tresiba 50 units [...] at home: Medicines ? Take or apply whbo-nwb-raadsyc and prescription medicines only as told by [...] cannot use soap and water, use hand signing agent. ? Change your bandage as told by [...] day for signs of infection. ? Take mjcu-cgm-cpwetas and prescription medicines only as told by your doctor. ? Keep all follow-up visits as told by your doctor. This is important. This information is not intended to replace advice given to you by your health care provider. Make sure you discuss any questions you have with your health care provider. Document Revised: 12/26/2021 Document Reviewed: 12/26/2021 [employer] Patient Education ? 2022 [employer]. [facility] Consultation Noteon 12-16-19 Consultation Note [id number] 002 [id number]#1.00C D:127 Normal [facility] MRI Spine Lumbar w/o Contras ton [...] by: KATEY Technologist: NUBIA Technical Comments None [facility] Consent for Treatmenton 11-15 Consent for Treatment [id number]#1.00C D:127 [facility] RAD - MRI Screening Formon 0 12-08-2022 RAD - MRI Screening Form [id number]#1.00 CD:127 [facility] Physician Orderon 11-26-2022 Physician Order [id number] [id number]#1.00CD :127 [facility] Physician Order [id number] 041 [id number]#1.00CD :127 [facility] BD Bone Density DEXAon 11-25 BD [...] very important to your health. The current [employer] and National Comprehensive Cancer [...] Consent for Treatmenton 11-14 Consent for Treatment [id number]#1.00C D:127 Normal [facility] Consultation Noteon 11-24-19 Consultation Note [id number] 040 [id number]#1.00CD :127 Normal [facility] Consultation Noteon 11-14-19 Consultation Note [id number] [id number]#1.00C D:127 Normal [facility] Family Medicine [...] and some weakness, I take WC to [place] so I walk and do Wheel Chair. Pain stays in the hip. After walking approximately 10 minutes at [place] patient needs to get into wheelchair secondary to the pain in her left hip. Patient reports no poor color no radiation of pain into left thigh and nor leg nor foot. Diabetes is now managed per Dr. Ruggiero, her last A1c at Dr. Ruggiero's office was 8.9 and the 1 prior to that was 13. Dr. 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 Take vwkd-jdr-gvfqgiw and prescription medicines only as told by [...] Reviewed: 02/25/2022 Elsevier Patient Education ? 2022 [employer] Normal [facility] Physician Referralon 023 Physician Referral [id number]#1.00 CD:127 Normal [facility] [place] US arterial duplex LE LTon 0 11-04-2022 US arterial duplex LE LT [facility] [place] [address] Ultrasound Report Signed Patient: Evon Corcoran MR#: [id number] 844 : 1950 Acct:[id number] Age/Sex: 72 / F ADM Date: 11/04/22 Loc: [facility] Room: Type: [facility] Attending Dr: Renetta Barahona DIRECTOR OF STRATEGIC COMMUNICATIONS-C Ordering Provider: Renetta Barahona APRN Date of [...] MD 11/04/22 1307 Signed By: 11/04/22 1309 [facility] US ankle/arm indiceson 11-03 US ankle/arm indices [facility] [place] [address] Ultrasound Report Signed Patient: Evon Corcoran MR#: [id number] 844 : 1950 Acct:[id number] Age/Sex: 72 / F ADM Date: 11/03/22 Loc: [facility] Room: Type: [facility] Attending Dr: Miguel Membreno MD Ordering [...] MD 11/03/22 1024 Signed By: 11/03/22 1026 [facility] CHEMISTRYOrdered By: Avvo SYSTEM on 10-31-2022 Albumin [Mass/Vol] 3.4 g/dL Normal 3.3 - 5.0 gm/dL F [facility] Remisol Anion gap [Moles/Vol] 11 mmol/L Normal [...] rate/Area] 43 mL/min/1.73 m2 Low >=59mL/min/1.73 m2 [facility] Chem S Glucose [Mass/Vol] 316 mg/dL High [...] ratio] 22 mg/mg High 10 - 20 [facility] Remisol CHEMISTRYOrdered By: Jeniffer Rosas on 10-31-2022 Albumin Elph (U) [Mass fraction] 8.4 mg/dL Invalid Interpretation Code FT Remisol Creatinine (U) [Mass/Vol] 132.6 mg/dL Invalid Interpretation Code [facility] Remisol U Prot/Creat Ratio 63.30 mg/gm Cr Normal 0.00 - 200.00 mg/gm Cr FT Remisol Consent for Treatmenton 10-14 Consent for Treatment [id number]#1.00C D:127 Normal [facility] Physician Orderon 10-31-2022 Physician Order [id number]#1.00 CD:127 Normal [facility] Renal Panelon 10-31-2022 Albumin [Mass/Vol] 3.4 g/dL Normal 3.3-5.0 [facility] Comment on above: Performed By: #### 1 [id number], [id number] ####[facility] [address] [place] [address] Anion gap [Moles/Vol] 11 mmol/L Normal 6-16 [facility] Comment on above: Performed By: #### 1 [id number], [id number] ####[facility] [address] [place] [address] Calcium [Mass/Vol] 8.4 mg/dL Low 8.9-11.1 [facility] Comment on above: Performed By: #### 1 [id number], [id number] ####[facility] [address] [place] [address] Chloride [Moles/Vol] 104 mmol/L Normal 101-111 [facility] Comment on above: Performed By: #### 1 3936522, [id number] ####[facility] [address] [place] [address] CO2 [Moles/Vol] 27 mmol/L Normal 21-31 [facility] Comment on above: Performed By: #### 1 2917571, [id number] ####[facility] [address] [place] [address] Creatinine [Mass/Vol] 1.3 mg/dL Normal 0.5-1.3 [facility] Comment on above: Performed By: #### 1 3060137, [id number] ####[facility] [address] [place] [address] Glucose [Mass/Vol] 316 mg/dL High 55-199 [facility] Comment on above: Result Comment: If t his glucose result represents a fasting glucose, interpretation should refer to the following reference range: 55-99 mg/dL Performed By: #### 1 [id number], [id number] ####[facility] [address] [place] [address] Phosphate [Mass/Vol] 3.8 mg/dL Normal 1.9-4.6 [facility] Comment on above: Performed By: #### 1 [id number], [id number] ####[facility] [address] [place] [address] Potassium [Moles/Vol] 4.2 mmol/L Normal 3.5-5.3 [facility] Comment on above: Performed By: #### 1 5022135, [id number] ####[facility] [address] [place] [address] Sodium [Moles/Vol] 138 mmol/L Normal 135-145 [facility] Comment on above: Performed By: #### 1 5198522, [id number] ####[facility] [address] [place] [address] Urea nitrogen [Mass/Vol] 28 mg/dL High 5-21 [facility] Comment on above: Performed By: #### 1 6842193, [id number] ####[facility] [address] [place] [address] Urea nitrogen/Creatinine [Mass ratio] 22 No Units High 10-20 [facility] Comment on above: Performed By: #### 1 0815821, [id number] ####[facility] [address] [place] [address] U Protein/Creat Ratioon 10-14 Albumin Elph (U) [Mass fraction] 8.4 mg/dL Invalid Interpretation Code [facility] Comment on above: Result Comment: The reference range and other method performance specifications have not been established for this test; results should be integrated into the clinical context for interpretation. Performed By: #### 1 [id number], [id number] #### [facility] [address] [place] [address] Creatinine (U) [Mass/Vol] 132.6 mg/dL Invalid Interpretation Code [facility] Comment on above: Result Comment: The reference range and other method performance specifications have not been established for this test; results should be integrated into the clinical context for interpretation. Performed By: #### 1 [id number], [id number] #### [facility] [address] [place] [address] U Prot/Creat Ratio 63.30 mg/gm Cr Normal .00-200.00 [facility] Comment on above: Performed By: #### 1 4385569, [id number] #### [facility] [address] [place] [address] URINALYSISOrdered By: Rosa Chacon on 10-31-2022 Bacteria [...] AM) Normal Negative [facility] UA Auto SS [place].plasma/Lith ium.RBC (Bld) [Mass ratio] 0-3 /HPF Normal [...] AM) Invalid Interpretation Code 1.005 - 1.030 [facility] UA Auto SS UA Spec Desc Clean Catch (10/31/22 7:33 AM) Normal [facility] UA Auto SS Urobilinogen Qn (U) 0.1536746 {Donell'U}/dL Normal 0.0 - 1.0 EU/dL [facility] UA Auto SS WBC Auto Ql (U) 1+ *ABN* (10/31/22 7:33 AM) Invalid Interpretation Code Negative [facility] UA Auto SS WBC LM.HPF (Urine sed) [#/Area] 6-15 /HPF Invalid Interpretation Code 0-5/HPF [facility] UA Auto SS Urinalysison 10-31-2022 Bacteria LM Ql (Urine sed) 1+ /HPF Abnormal Trace [facility] Comment on above: Performed By: #### 1 [id number], [id number] #### [facility] [address] [place] [address] Bilirubin Ql (U) Negative Normal Negative [facility] Comment on above: Performed By: #### 1 8878431, [id number] #### [facility] [address] [place] [address] Clarity (U) CLEAR Normal Clear [facility] Comment on above: Performed By: #### 1 3799098, [id number] #### [facility] [address] [place] [address] Color (U) YELLOW Normal Yellow [facility] Comment on above: Performed By: #### 1 7991879, [id number] #### [facility] [address] [place] [address] Epithelial cells.squamous LM.HPF (Urine sed) [#/Area] 0-2 Normal 0-2 [facility] Comment on above: Performed By: #### 1 1550488, [id number] #### [facility] [address] [place] [address] Glucose Test strip (U) [Mass/Vol] 2+ Abnormal Negative [facility] Comment on above: Performed By: #### 1 0914148, [id number] #### [facility] [address] [place] [address] Hemoglobin Ql (U) Negative Normal Negative [facility] Comment on above: Performed By: #### 1 8781504, [id number] #### [facility] [address] [place] [address] Ketones (U) [Mass/Vol] Negative Normal Negative [facility] Comment on above: Performed By: #### 1 4429792, [id number] #### [facility] [address] [place] [address] [place].plasma/Lith ium.RBC (Bld) [Mass ratio] 0-3 Normal 0-3 [facility] Comment on above: Performed By: #### 1 8670831, [id number] #### [facility] [address] [place] [address] Nitrite Ql (U) Negative Normal Negative [facility] Comment on above: Performed By: #### 1 0986709, [id number] #### [facility] [address] [place] [address] pH (U) 6.0 [pH] Invalid Interpretation Code 5.0-9.0 [facility] Comment on above: Performed By: #### 1 4775766, [id number] #### [facility] [address] [place] [address] Protein (U) [Mass/Vol] Negative Normal Negative [facility] Comment on above: Performed By: #### 1 3500122, [id number] #### [facility] [address] [place] [address] Specific gravity (U) [Rel density] 1.025 Invalid Interpretation Code 1.005-1.030 [facility] Comment on above: Performed By: #### 1 1852817, [id number] #### [facility] [address] [place] [address] Type of Urine collection method Clean Catch Normal [facility] Comment on above: Performed By: #### 1 6144761, [id number] #### [facility] [address] [place] [address] Urobilinogen Qn (U) 0.2 {Donell'U}/dL Normal 0.0-1.0 [facility] Comment on above: Performed By: #### 1 8935941, [id number] #### [facility] [address] [place] [address] WBC Auto Ql (U) 1+ Abnormal Negative [facility] Comment on above: Performed By: #### 1 9914425, [id number] #### [facility] [address] [place] [address] WBC LM.HPF (Urine sed) [#/Area] 6-15 Abnormal 0-5 [facility] Comment on above: Performed By: #### 1 4159760, [id number] #### [facility] [address] [place] [address] eGFRon 10-31-2022 GFR/1.73 sq M.predicted among non-blacks MDRD (S/P/Bld) [Vol rate/Area] 43 mL/min/1.73 m2 Low >=59 [facility] Comment on above: Order Comment: Order added by Discern Expert. Result Comment: Construction Economist jin kidney disease could be indicated at eGFR's of less than 60 mL/min/1.73m2. Kidney failure is indicated at less than 15 mL/min/1.73m2. Performed By: #### 1 2661119, [id number] ####[facility] [address] [place] [address] RAD - Ultrasound Reporton RAD - Ultrasound Report [id number]#1.00C D:127 Normal [facility] Retail - Clinical Noteon Retail - Clinical Note [id number]#1.00C D:127 Normal [facility] VAS LAB Carotid Artery Dupl ex Ultrasounon 09-17-2022 VAS LAB Carotid Artery Duplex Ultrasoun [address], [address] [facility] [place] [address] Vascular Lab Report Carotid Artery Duplex Ultrasound Patient Name: EVON Mckeon Physician: [id number] Fariha Guidry MD, [facility] Study Date: 09/17/2022 Referring FARIHA GUIDRY Physician: MRN/PID: [id number] PCP: Christopher Wells DO Accession/Order#: [id number] CC Report to: Date of : 1950 Technologist: PRAVEENA Gender: F Technologist 2: Admission Status: Outpatient Location Performed: [facility] Diagnosis/ICD: P06-Rrzgpbbah and giddiness; I73.9-Peripheral vascular disease, unspecified Indication: CAD, PTCA, High Risk Medication Use, Vascular Disease, Diabetes, HTN, Hyperlipidemia, CKD-Stage III, DVT, MORALES, Obesity Procedure/CPT: 64114 Cerebrovascular Carotid Duplex scan complete-73486 CONCLUSIONS: Right Carotid: Findings are consistent with [...] cm/s Right Left ICA/CCA Ratio 1.4 2.0 72740 Fariha Guidry MD, FACC Final Normal [facility] VASC LAB Carotid Artery Dupl ex Ultrasoundon 09-17-2022 US.doppler Carotid arteries -[facility] Heart-Sandu feliz 250 DO Work Phone: Gastroenterology [...] (bright red blood per rectum) 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 Change in bowel habits Chronic renal [...] Bulgur wheat. Millet. Quinoa. Bran muffins. Popcorn. [place] wafer crackers. Meats and other proteins [place] beans, kidney beans, and chase beans. Soybeans. [...] Cream cheese. Sour cream. Fats and oils Montegut. Beverages Soft drinks. Other foods Cakes and [...] [facility] [place] Medication Refillon 08-23-19 Medication Refill [id number]#1.00C D:127 Normal [facility] CBC w/Indiceson 08-01-2022 Erythrocyte distribution width (RBC) [Ratio] 14.0 % Normal 10.9-14.2 [facility] Comment on above: Performed By: #### 1 1038003, [id number] #### [facility] [address] [place] [address] Hematocrit (Bld) [Volume fraction] 39.9 % Normal 34.0-46.0 [facility] Comment on above: Performed By: #### 1 3549068, [id number] #### [facility] [address] [place] [address] Hemoglobin (Bld) [Mass/Vol] 12.7 g/dL Normal 12.0-16.0 [facility] Comment on above: Performed By: #### 1 6741256, [id number] #### [facility] [address] [place] [address] MCH (RBC) [Entitic mass] 27.9 pg Normal 27.0-34.0 [facility] Comment on above: Performed By: #### 1 7325539, [id number] #### [facility] [address] [place] [address] MCHC (RBC) [Mass/Vol] 31.8 g/dL Normal 31.4-36.0 [facility] Comment on above: Performed By: #### 1 1581822, [id number] #### [facility] [address] [place] [address] MCV (RBC) [Entitic vol] 87.6 fL Normal 80.0-100.0 [facility] Comment on above: Performed By: #### 1 0631776, [id number] #### [facility] [address] [place] [address] Platelet mean volume (Bld) [Entitic vol] 10.5 fL Normal 6.4-10.8 [facility] Comment on above: Performed By: #### 1 0295924, [id number] #### [facility] [address] [place] [address] Platelets (Bld) [#/Vol] 227.0 E9/L Normal 150.0-500.0 [facility] Comment on above: Performed By: #### 1 3852467, [id number] #### [facility] [address] [place] [address] RBC (Bld) [#/Vol] 4.6 E12/L Normal 4.3-5.9 [facility] Comment on above: Performed By: #### 1 0172974, [id number] #### [facility] [address] [place] [address] WBC corrected for nucl RBC Auto (Bld) [#/Vol] 7.3 E9/L Normal 4.0-11.0 [facility] Comment on above: Performed By: #### 1 1874387, [id number] #### [facility] [address] [place] [address] Consent for Treatmenton 07-14 Consent for Treatment [id number]#1.00C D:127 Normal [facility] Lipid Panelon 08-01-2022 Cholesterol [Mass/Vol] 128 mg/dL Normal 120-200 [facility] Comment on above: Performed By: #### 1 2203567, [id number] #### [facility] [address] [place] [address] Cholesterol in HDL [Mass/Vol] 47 mg/dL Invalid Interpretation Code [facility] Comment on above: Result Comment: HDL > or equal to 60 mg/dL: Low cardiovascular risk HDL < 40 mg/dL : High cardiovascular risk Performed By: #### 1 0622882, [id number] #### [facility] [address] [place] [address] Cholesterol in LDL [Mass/Vol] 59 mg/dL Normal <=129 [facility] Comment on above: Performed By: #### 1 5158677, [id number] #### [facility] [address] [place] [address] Cholesterol in VLDL [Mass/Vol] 27 mg/dL Normal 7-40 [facility] Comment on above: Performed By: #### 1 3914075, [id number] #### [facility] [address] [place] [address] Triglyceride [Mass/Vol] 133 mg/dL Normal <=149 [facility] Comment on above: Performed By: #### 1 0195733, [id number] #### [facility] [address] [place] [address] Physician Orderon 08-01-2022 Physician Order [id number]#1.00 CD:127 [facility] Reminderson 2022 Reminders - From: Adore [...] patient was seen on 06/11/22 by Linda [facility] Retail - Clinical Noteon Retail - Clinical Note [id number]#1.00C D:127 [facility] Ambulatory Visit Summaryon 0 06-11-2022 Ambulatory [...] AM EDT With: Linda Solorio CNP Where: [facility] Normal [facility] [...] EDT Patient Educationon 06-12-19 Patient Education [facility] High-Fiber Diet Fiber, also called dietary [...] serving. ? Talk with a diet and food and nutrition supervisor (dietitian) if you have questions about specific [...] Bulgur wheat. Millet. Quinoa. Bran muffins. Popcorn. [place] wafer crackers. Meats and other proteins [place], kidney, and chase beans. Soybeans. Split peas. [...] Cream cheese. Sour cream. Fats and oils [place]. Beverages Soft drinks. Other foods Cakes and [...] 03/02/2006 Document Revised: 01/04/2018 Document Reviewed: 01/04/2018 [employer] Patient Education ? 2019 [employer] Gastro (more content not included)... Normal [...] [place] IntraOperative Documentson 0 05-30-2022 IntraOperative Documents [id number] D:127 Normal [facility] Result Letter Officeon 05-30 Result Letter Office May 30, [address] [place] [address] EVON CORCORAN 1950 Below is a summary [...] letter prior to your next due date. [facility] [phone] Normal [facility] Postoperative Documentson Postoperative Documents [id number]#1.00C D:127 Normal [facility] Coding Summary.on 05-26-2022 Coding Summary. CD:[id number] Gh0 bWw+PGhlYWQ+WV9BRPOoZ35 gxCRcfQ8yG1IABCnVGxnhJF KEYYoQBgEcpsRfSK5tiNNxC XJu IC8+FY8aSXVaJuzdtJUft6A 1oAN6T40ysq7uVHeqyPU6NU QqEfWhelyxn9wxsAe9COjjC mluOyBt SEZzgA46PJK5uR73Mi76lYG kuWRhf6ddwPo6TxPmZNAcRP Y8eFsuFAiup6AhBKWyS18ko DItm6N4 IBZfgZfacXFuOpIsaKJ8yI7 lUAtyzrpmy4yxiuomCeb4wv 52wDPjj6T6hVT3H0JmavB1T GJvbGQg OyncqSJZqS5nbpunm7kvnwv aWsCkDXJpCQg1WAv9HLCtqZ muUoTqBG20VKE6UCTyaqNxA 2FsLWFs qAcqDlH7t0F5Nr3IV4IGSbq aH4HSHZGLCTcobPU+PC90cj 02H5ClHzhrSdk0QZNiFBT4l IH6kH1z XXRnKWitf1K3bHN7S0QjbnU dww4gh3mtHTXwOWolZ50teF Woo7E9JGZlfIR3BVWwuCdsR iBzaG93 Oyc+ZKQjbFhoy4CxEjewj3i td8daiJk4SlwpJPAmaaGwfH diSEF0x0FlJh4vDXIkzLD4f NC7mI4q KjNpRuJ5ATxqU844PfCqbVT iFedaE67aI2PffJI+PHRyPj i7AVEoyOshUW6hZ3FgQVQpu mctbGVm tLcfTX5kRKJcfkamDUUosN2 eSXNpS5w1BsWuSbR8IRczZ1 MhHJMlzcsvOp91vF9lSzPwG oO6ANin J7DqhnC8SNHctSQuLLysQBY 3J90dp7K2IHBoCEFwOZZ9mM H1oL2yjRohmuwdjLMioZoti mVydGlj ITofDCviZ661LUShwXfdMuN vZGluZyBEYXRlOiAgMDMvMT MvMjAyMzwvdGQ+EYLuFLU7c WxlPSAn mOYvFAfoKb2rvAnlrFziFJ8 qZAOrfiklQOLbfC7kHQZpkP MxxRokMZ6rANWzxhavz766P iAxMHB0 MIYbcGVaT4XkgQ8oDkOxBPP kWWNtC9SdyCOaZOnlE876GO meQvM4RRAoapFfM7FrVFGvr WduOiB0 f1N6Dn4Am6IrgdxxV5IwlQZ xCiFcWciyEDt7N4ZbXkipxO I+LM08ICVgZV62PWr3OPY8o WxlPSdi NLGcU7UiqB3tYfXsKKJdHYK kOyc+PHRhYmxlIHdpZHRoPS tsWPZyJzZqkTskEP1uHh8kD GVyLWNv pVhguMHuUpGni5zqBTXhYAw kUG4ssXctT1PlaCT7FECky7 k5By00E23kA5StmNH+PGNvb AZ0wCD1 tL6dZiYdZrH1AGvxC999IdJ vnDBnNepie1vey6brxWx9Wy Z0QIAkjhLboCetFBS4j5YiM q68K02m IHdpZHRoPSIxNSUiIHZhbGl fsi4arC3fXv7+KZHxoHH5cX A1kE2kKcKqPxC5DGspZ545Z nRvcCIv Wqsjn5cfn0xigDo9UyZvPXQ zxlRvvPnhXUT1g4MsYi60A0 KiaVyta3JqHnw5jf44uGLlj 1C6yHM7 M1TjOHKvfpdzlUUbyRgqIH5 mKGFgwqsnOQTfmE3mVMCeK9 q0KkPgVsT7ROyoB2GqcqA9X GJvbGQg QVQgbPAGdO5didkvl6pilrp aYfVeKQHmUHv2WBw2HQToqK exLcVfLXB8FwL4BRU1rIHwk N7pjLmf ystxjI1qZzt+BPU0sNYyeSD JVF9sPrhnoDJ+YJKkZRO7hN iuOQiiTKMjwN9hDOVeO2w0F iAwLjA1 ZGtjV8KybqH3GDJmkWAvTJW gnFTZiJ0pdzgxj4ohysxhYt XmLNWvIVh3OQh5UNXvjZwwJ iBsZWZ0 OyG7CVU2rSAofJ5dhSdnjkf qaL5dYmh+ZscetAqrGZI6JC f7F8LsKxl9UVLwiNvxKX9wa GFkZGlu Sb8gmEuyrKwpVJ8fIUYrwmi nk803HnFfl8vmRSJozMWtIZ wePTA2Y83li5V4CFVhECMxK RZ8kTX2 sB6zhNviyocxlSFggDsoirB ebPemGLwuAOmeQ531VQUlqU anLtXzAKi1P3PhYmn1BQFlj TrqOU0n wPBnONipWt2xoAcauDqoLJ7 sVUXpwuqvi906MqSkj0ewHR AxiECdRLuqNAX8Z40sx3J0O CMwMDAw IGM0yGJ0wE5kiGddsgwugBD mdDsgdmVydGljYWwtYWxpZ2 79DHMfzDpjCvSmfVm6C9DuW lh6PCZv xGatBB9nkXTgKQubEg5biVr xiOswKQ6hXTLhwasze471Ml Nii0xyEEXlnKWcIKhmBEI9H 11wm8S2 ZRMnWUAlTIX5xBG7dE2hpMw nbjogbGVmdDsgdmVydGljYW lbFQdlW839UNLjrDyvSeIzf GllbnQg TXqrZLq4Z8VcNlkhhKQ+PC9 5RDTeMF32jYUczGIzv2qrgU q3XoOuQPNeEMF9kRmsHZbql 3JkZXIt N88vsTOqg7Y6AUOuiIwouUN cQmWyfWL6yF4wFEgxweyfe1 dxunaeJzgiz3bffr95mT59R 29sIHdp ZHRoPSIzMCUiIHZhbGlnbj0 zzC4oCc3+BKCaoIH1hIG0fR 6rLPZeGkM4LGfiO259ReRws CIvPjxj g6foz9cmtVg5OjM2ERCtjsV myRdaLRA3j4HoAg78Y62jXA dpZHRoPSIyMCUiIHZhbGlnb a0ziG5p Ii8+EJQffYZ5sXP3uA4kQpG hQmJ3DIvqY963LjMrwJRvEe vwX89bL5FqtNM+OGQcDhf3X CBzdHls KA9taJQqQOpkKb3yVQX5GiB sZeGvBCigL8YmTGGohgpobp vfaEP9PPDmMKHyuL32Tx3tv DogMTBw qBCQwM2dxcxji0ioqezrRtL qYQIgMQr4AEv8EZNesMpqZn RxCFF3EgB2JNS1kVXvaZ2zq Glnbjog jW6wL8DfNXZyluakYd83xI9 bRpGzWoO4IHweQto+VFJVTV VKX9RUCBAITOEIDoLIBC90Q K90sKZs n9M7eQC3M9XsAQRjjzoaaxf nyBO9LZHeSXAahG57iAHkZQ tmYw9mg0Q2s278GMSoXCNkf J20In2h cRznIFThnONZhI5vuzlcr8p ihqiaOdFnXGCpKNt6NNv3DU CznCqdCaZzLLW0BaF4LZO6a HJywJ7y eLrxvugrfV0qVyk+MDQvMTE hTWb2CDowaMG+SWNmDKS9sR vcOGagGHEolA7fUKVrU1r4N iAwLjA1 JAeqH6YoHXYwssvxGn48rZ6 oUiVmJqJ1GHcgH3GymdD4XT TrqSQtFCdjGLQ6L46kt6H6G CMwMDAw OJA4zTB5hY4stHvagdppcRS mdDsgdmVydGljYWwtYWxpZ2 46IHRvcDsnPjcyIFllYXJzP X89YG66 hXZll7O0fYI5Y4EsFTEstce kgamtcJC7XKOzBQZwsI69lE XeXHmeTf0gj9X0e214VJEzO DUwaW47 Hw8kxZbhRSUwtFGDuH2rmky uw1vupyobVhEkJMZuEKc1OO x8RKHbfCoiWmDhIYS4OpE1V NJ2aOAs eP8xzCmvsgytfM1vMyh+RmV xQGhqPP42VB15oESih7W1sH O6D4VmOSOgabhegnukfNJ5O DAuMDUw iR49nMAfGKvgNx0ud6U5p31 1RLBcIITzgV24Cj6jiUmcXT NmtYHEoO7lqqqih1ojxmnoE zAwMDAw THg9QDq2DHAbjQlvUcLiPYX 0RuB8ZQJ7wOHkuJ1vmDwket icmO7cRcy+L6N9vOW6sXYyd DwvdGQ+ BZ94ax00Y5CkHhlsEww5OIV tOHP0iTH5oZ5qKKXzROdyd2 F8hUS2I7QyruFexy5ko1wjB XBzZTog Q35exHHpe3R9MDCdaDW3VZD kqYnzDkWrrX60Kxi+PGNvbG wst3HtYbbil2kja4cqpLt2H jMwJSIg wrAxcOqnWOP6t6UfOo18U86 sIHdpZHRoPSIzMCUiIHZhbG dlks8pnR5bGj6+STDduLG0l NH0qI1w WkRqOjH6QEpcJ112TlAwdCL qMwmhi5aqu3fkfSp1WaOgST UvxlDldIfuOBK7k0XdDj79A 2NvbGdy j4EzLtn8cz73hIXng8U1eEW 7V0EmIQEhhrxeoUVnuLliQT 1mDGYgumzuZPVjeX5sCZWfC 4r5ZkZs FdS8KQexA6YetvG6RDWweGD qXLEniPLYaG0jecqla1kexa ctWyQaMFJwBLi8XEt1SZJhs WduOiBs XYZ8HkW1TSQ2rXSfiU8htKr bajvkaS7nGyz+DCn4u8duhH WaAM0kiUV3WS12AD78xTItd 0R2fEM0 Z3QrQPTrnufkpmqmjFY9GEA xAQUrhZ12Ip9gaCvyHe4qWI HsUDC2OBNwrRPqU1BrpT1pE iAjMDAw RKKzS5TnsPAcPAteQ265BJe wYiI4DHRzrcTyA5JsZIQwrT lkRdX9r2O9Xz5UZC05RV75B A30kRNo v1C1cKE7L7GmDHIgdwfgais kmVR9RGTgHVXriZ00Vd0bdU spQc0dYACdGOT4BICboGBxP 3XukN8x GcZgHHGwHQJfQ9AkoLXbKAi jN495SBfdIdG1REYxzxDgG2 FbPYQvyHsbNlI0p8W1Gs6AV u16GU57 NG36kYMlv1S2pXB6S2QuENK kgiblgwxlpQX7MYGqBMAphI 60Ap0lqQplDz7kQVYaTRB9C FRpbWVz G4WokA9kUtBlURRqXHViC2N xtBDdPQbrL206MPcmXuH7NH PscaCdV6CyHSIfwJchOsD9t 2O7Ah3A SAikopi7A8FbRnoskXM+PC9 1KRBbUM13gTXzmAMlr5oruC t4IxBaJRHzHKZ6hNmpUTopn 3JkZXIt Y29s (more content not included)... Normal [facility] Main OR Intraoperative Recor don 05-26-2022 Main OR Intraoperative Record IntraOp Document Type FT Summary Primary Physician: Luis BENSON MD Finalized Date/Time: 05/26/22 08:45:38 Pt. Name: EVON CORCORAN /Sex: 1950 Female Med Rec #: [id number] Physician: Luis BENSON MD Financial #: [id number] Pt. Type: O Room/Bed: / Admit/Disch: 05/21/22 [...] Johnston RN, Esha Diane Role Performed Anesthesiologist Clinical Documentation Clerk - Primary Staff - Other Copper Flotation Operator Time In 05/21/22 13:14:00 05/21/22 13:14:00 05/21/22 [...] and tissue Entry 1 Skin Integrity Intact, Concepcion, Warm, and Skin Abnormality No Dry Outcomes [...] Normal [facility] Consenton 05-22-2022 Consent [id number] CD:127 Normal [facility] Discharge Instructionson Discharge Instructions [id number]#1.00 CD:127 Normal [facility] Consent for Treatmenton Consent for Treatment [id number]#1.00C D:127 Normal [facility] Endoscopic Procedure [...] Attachment - attachment storage system not supported [id number] Can be viewed in source systemMissing Attachment - attachment storage system not supported [id number] Can be viewed in source system Inpatient Patient Summaryon 05-21-2022 Inpatient Patient Summary [address] [address] [facility] Clinical Discharge Instructions PERSON INFORMATION Name: EVON CORCORAN [facility]#:[id number] PHYSICIANS Admitting Physician: Luis BENSON MD Attending Physician: Luis BENSON MD PCP: Christopher WELLS DO, FAAFP Discharge Diagnosis: Diarrhea Comment: PATIENT EDUCATION INFORMATION Instructions: Colonoscopy, Care After Surgery Marcelino (ARLENE); Colon Polyps Medication Leaflets: Follow up: With: Address: When: Luis BENSON [address] [place] [address]. [address] [place], [place] [id number] [employer] (1) Comments: office will call for follow [...] Name: NILOEVON/Sex: 1950 Female Med Rec #: [id number] Physician: Luis BENSON MD Financial #: [id number] Pt. Type: O Room/Bed: / Admit/Disch: 05/21/22 [...] EVON CORCORAN/Sex: 1950 Female Med Rec #: [id number] Physician: Luis BENSON MD Financial #: [id number] Pt. Type: O Room/Bed: / Admit/Disch: 05/21/22 [...] [facility] Rec[facility] 05-21-2022 Monitor Record [id number]#1.00C D:127 Normal [facility] Monitor Record [id number]#1.00C D:127 Normal [facility] Outpatient Surgery Discharge Instructionon 05-21-2022 Outpatient Surgery Discharge Instruction [address] [address] Patient Discharge Instructions PERSON INFORMATION [...] Follow up: With: Address: When: Luis Dow [address] [place], [place] [phone] Business (1) Comments: office will call for follow up Pharmacy Information: [facility] You may receive a survey from [employer] asking you to rate your care experience. Your feedback is important and will help us understand what we do well and how we can improve the quality of care we provide to you, your loved ones and our community. It?s an honor to serve you. Thank you for choosing [facility] HERE ARE THE MEDICATION CHANGES [...] disposition: To PACU. Optimetrix number: Optimetrix number [id number]. Anesthetic utilized: General. 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 / SNOMED CT 12096230 / Confirmed Change in bowel habits / SNOMED CT 725493937 / Confirmed Chronic renal impairment, stage 3a / SNOMED CT 1902175138 / Confirmed Claudication of both lower extremities / SNOMED CT 143050862 / Confirmed Familial hypercholesteremia / SNOMED CT 6940908054 / Confirmed History of colon polyps / SNOMED CT 6424355302 / Confirmed History of DVT in adulthood / SNOMED CT 4017204383 / Confirmed HTN - Hypertension / SNOMED CT 1663750493 / Confirmed Hx of colonic polyps / SNOMED CT 0375027314 / Confirmed Internal hemorrhoids with complication / SNOMED CT 3799681365 / Confirmed Mild nonproliferative diabetic retinopathy of both eyes / SNOMED CT 057816777 / Confirmed noted in 08/21/2019 Diabetic Eye Exam. added per outpatient CDI policy. Non-smoker / SNOMED CT 89199657 / Confirmed Type 2 diabetes mellitus with hypercholesterolemia / SNOMED CT 570708291 / Confirmed linked DM with hypercholesterolemia per outpatient CDI policy. 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 One negative specimen does not rule out the possibility of a parasitic infection. Performed at: [address] [id number] PhD Armin Zaldivar Performed By: #### 1 [id number], 80715662, 38552559, 50485547, 58198216, [id number] ####[address] [place] [address] O & P Exam, Routineon 2022 Ova and parasites identified LM Nom (Unsp spec) Final report Invalid Interpretation Code [facility] Comment on above: Result Comment: Thes e results were obtained using wet preparation(s) and trichrome stained smear. This test does not include testing for Cryptosporidium parvum, Cyclospora, or Microsporidia. Performed at: [address] [id number] PhD Armin Zaldivar Performed By: #### 1 [id number], 82699006, 61513855, 03694875, 78663636, [id number] ####[address] [place] [address] Coding Summary.on 05-12-2022 Coding Summary. CD:[id number] Gh0 bWw+PGhlYWQ+YV1LOBTvQ66 tuGOlkE1JG9wFEY9PLIBJTY YJPE2AXD1jfED5UBpiX7Cil iAv OrvszSHzLS44LSv4MJS0fGt sBLxqdC0acHUsK0v4PzEuGS 18sF85CJhkWHWiAdX4HbZgp jsgbWFy F6wbCiCqnSOxTam+PHRhYmx lIHdpZHRoPScxMDAlJyBzdH uvGR2bOu9lPYAjWSBeuOlzp HNlOiBj k1evHEZoNJkmXZ4drAdvI2O twEA8XTUpn0c6Kt06vUN+PH EyUNT2jEfsAKudb592QpPxn 2icYXT4 uOSaIRahENH9L77rl8Q3SQP lZGXkBBL6sIY9nF9ipBdrgk giA3QeoERxVpL1TOE1iKTqo H7pnElr ssibmZ7cJfu+B63IAY7QQTV PHT1NRvi8H9MbUuvlfHN+PC 80XJEsXV35nNRcaEAcl1afw Od0DfAx QBIeLYX0rTwcWXnai0IkJXN pO28drBIda8M9AXBimGzjyI YtTeBykJC7dL2aPFdgcenpg 2hvdzsn Oswfh8qsgc38uF25Q46wAJb lXTJcGVM7PUErQRJrrXobpb 1dgC2iCy0+RCspz1mnm6rwu Bf7EaKi PCXoutQzyIxoCAB3f6VfRt5 8G7LxfXzvk7RgIet0bh89kQ Ivo2L0oRE5TXfhNIAbaE3zJ WxlZnQ6 RJWiRrGsiE30rRLqKBqkHi1 foLptmEcaDL6pTBXawserGQ CstN8hUDIgyZXkgAuaWD8gC TBpbjtm v940FaCvRGT4LDJxoKQtL5X qlS1xBtMbQVDuQZRuM3EwjZ DhILwtH143PJyoHjA2DHYgd tKoW0Tc DXKljOmfXqK1a3X3Bz5Dz7U hszbrTNL5EYmpYWRtNmU4Qp LxIgU0Y7McPmy5SWRnaPhkF D2qP7Bu GKRqypnnpnbpnTG9CCAjGHZ ijP68nJRhKHosIu7kn9C8w7 07DCPbLNFulB57Ts3miPtsD TBwdCBU fN5qufvwi2klssjjXoXhCSS pEOu2TBo6ORDgvTxqBeVfTR I2HzR6AMH8iFKhwB6fnXghy oqceT3f Oyc+B63bsF9eWSG8LIM0zll oFJMumgGyQT91KH09C7FmWl wvdGFibGU+PGRpdiBzdHlsZ X7qAdTv c3kqc5HwTVvhL4BiOBDaUZm uMxi0SSIhKBT3tBN1mD1fTZ GlMLouu8T1pDH6D0KmtgYvn b5vb0yd GHObJZelD66taOBfx2C3SDX xkJE3LUBkoUrxFoHbmE57Sa c+ZPPqcVdxm9KaLerrd3rlb 2klaLx8 DtZtFHEqezMgoFfzAPT4b6P pMv52S50zCTfaXRGfCJUtOU XwWYSwjMtwfh6njN6yXw6+P GNvbCB3 gEA7gU3aWSSjRgU2QSekP28 1QjGcjBDrAcuif4thj8bipR w2QzLfECVmjgIvnVkdHGT3m 9AzZj51 D64oMOtoRHCqWADnNTKuCQP fhKjajs1zmM9pRu5+PC9jb2 flnw30uG01oLA+VKViLZX4j WxlPSdw IGDyeV5lXPxyZcY9YPCjSdP mkD33sQKhNSfhOs5snAphqG swCC2lIXVcoejfs841HkHcr 2xkIDEw eJBgHFlaHHR8X94ho9U1ORQ pQYPiQDB9fWL2cS8uhPplfa ogbGVmdDsgdmVydGljYWwtY YouO859 IHRvcDsnPlBhdGllbnQgTmF uATg0S9OpKbb2RIEjcIiwXE 5jjEZtEMaqQs8zcRiktJpxL R6oYQOx lvass000VnUnl7asCAEfaGK qUTkuWKX8A10zl5N8XSHtTS DeUTL8bFR5tH0luAzrfqsfn GVmdDsg jfQkaFqjZWbyQSezA353NWA ttYcqAbZjchIeYUYmfXB9UF 24TR18eKMpq4R3cIV2A3FpB GRpbmct aodouVT2DQIuQZBkjG46Mg2 kgFfdVn1yGEKmMQN1PBDttO AcO9McyH1jMtHrXJOvXNWbW 3RleHQt DFolD129FRybPpY4WNDlhtN eK0TbXZAuwCktWcQ1k0I8Kz 2IK0U9SW08ET33iSUkf6F9y DQ5I9Zn CJWxyamkprpmcZW3YOLkYVX mgD53La6aaRavZf7lZGHtEP N6KFJyzRTkW4AnrF6eMlOeD DAwMDAw F8KakUIvPBsuE110PGkaYrL 7HQQutsTeD9WvFULcyFbdDg D2l0K4Jp8EOXw8RG70LW48f GJxe3E0 zJY7H3CqREFlcqnccjdayDC 3ZQTiZZGxnG34Qg0flMbaHi 1pUZPrRAV7JABqwSRfB6Adp Z2fGoQc IWUaKLAeX6GfzHNyFUytZ21 8QZsjNkC3JCTrdiWdT3KtCV MvhQwaNvZ7j7F2Oq2FLNFoG Q54NNG6 bMY4AH83LJ35A7BkWnblrPR ibGU+PHRhYmxlIHdpZHRoPS hkIUQiImUatPemIC8xJm2fN GVyLWNv aIoqrOJpQxXcg4rqRFCgMDe oRX0blZfiB8HzqTX7EIEyx2 k6Ix18G37nU1LhpZM+PGNvb RM5vGG1 cZ8aDxYyKoN3BQetS111VxQ gvTPvLapxf4kwo6ljsNh1Hn U8OIUibwFmnDkhLYW3l3TwE l44Y75g IHdpZHRoPSIxNSUiIHZhbGl fxl9ntD1fUh8+LXJomOY3gL H9hO4gStIkFzH2PVrpF248J nRvcCIv Rixrb5egm5dwjNh2IcYyHJC cyuFrmSnlLJA0i8NaSf04J1 PleNznw6ToTwf0jv67yRBcp 3H5xQT1 T9HkJOCclobhsIUusTckWA0 wTFLgrzsuIHGvvH9fDKMzV0 g2QhUpZtE2JAevK6QzhxJ6H DEwcHQg OGxrTCT1H00xe0H7LFKjGFU gHSX7oLQ9zB6efSvfjlcckX VmdDsgdmVydGljYWwtYWxpZ 246IHRv lYgpEFTbjJ3dJIFzvYQdqPp sEB7aVIUdmicoRePSLT6ZN6 fNIeghV2OQUG1hPBtjlOQ+P HRkIHN0 gLmsWPlgPSBuhD6hMIHbN2j 9RbVxRiS3FXxwL9PgUHXvns waXk89oX6zArUgJcC0QPefD 6GazmB5 KFOdwFCnGKhtGDC2E57pe6S 1MZHnTFHgUTJ4gYX9nK0rzX lnbjogbGVmdDsgdmVydGljY WwtYWxp D265LCEmzIlrBgW7RhTtDvW 4YMT5Q3FuXms5CYUrvWkjVV 0zyCDlJWxhPz9tfYakwPtaJ U5aMNLi xwniMBHrrJ9cSUGepNUbrKs iPT8mINUjdfbml271AcAqXJ K6BPDskVFkA6EiwB8gFsErG DAwMDAw I3JhaMHiYEbnS468VGflCcA 0JZLxtvKhL8CuOXLbwUslFk X1f3C4Sp27IhUQRRXrmzemn GQ+PHRk WVD4lAptGMxtHRCleV9sHIN iF3h0BiFbLvV0BGyaI7ZuTX XrlyvhUj63kK2cEqQyFlN3Y FxrG8Vs ptW4MWBehXZpNBnzDLM9M06 it1N6COFyUIOyKDU7aZH9cN 1hbGlnbjogbGVmdDsgdmVyd GljYWwt WAvlQ784LSFwuPxfGqKnzBG sZTwvdGQ+RBDxPNL5jNjyYI vbIHAmmX8iAVVcB8e5YxXyC dD4RAcl Q5OrWLCjkenlKg42lT0qJiP lHkK6HNkjR6GtpvE7PLRifN UuUJddDMV0N52tz2B1YXVyA DAwMDA7 iHO6rX5rbOnyhoqhePDiiYd erdEjeOjxGRecOPmqW794WY KnsWqdMsjlYpRJhn7uLZ1dA jwvdGQ+ DN47dc05K7TeSpafUdp9BUW tSTO0qBZ2bE2cSFNiLDpoq7 I2cQQ7X4JhvxKcxv3kv5rwS XBzZTog E74ozDEsc5H8EONwzYY9IOQ utUsfSgTzhI94Jjt+PGNvbG unp6XdEjdyr1vcy9hhoAz0G jMwJSIg bdJmoWuhAIN3r9IfSb33R87 sIHdpZHRoPSIzMCUiIHZhbG iixb5cxG5yXf3+CHUppVT7g TR3sN8q WtMwNnU3IEpvF191YwVyaTB iTmvwb5cfu7opwPa4OzRjQI BvbhLqjNabSWL7u7HsUd44H 2NvbGdy l6BaIgn0nx83tSUzw1G1iPV 3D0UxYJSxangfmWHsySioZT 4aGWZojxdrKXRgmG8rKVWaW 0p6EyTe GjM7EPeyI9AuwjP5HQNgfWN zOXRoxBVZdT0jvosxb2jmsj naDrBkTOOiNLl1NXw4GAPjq WduOiBs BAZ0BgV8CYV6iSFxwS5pdXg nwnxcoU0uSzd+RJt6w2zffO EiQZ8jiKR4AJ31PR33qFLho 8H8mBU6 Y0PsDMNijrphmqhliRT2PAD cMEIrlT64Bi3dvSxnWj5uKC NnZPM6CJBkzQYuD2PpwJ9cS iAjMDAw YRGoZ4HpcKAwQEnrO885LEo rYjG5ZFGkyjXuN9WbGTKeoR dxRaG1m8E1Wc3KQS23AM64W U36jZAb x4Z6dIL8J4XrYHJyzlpqmmo owBX2TECvGYKamR50Dy3hsT jiJl0pTEVoOCT5SIQwyYUeU 7YisL6b PkGxPURkWLGzR1RudKOeTEi kG752XLfjYeP6JKMgaqNyK0 NmENYedZrvZpP9t1C3Ci1JC g70PG71 IP03fEYqt5A9hDA7L3OhMFQ marnqizdrmPV1UUPbJMYklK 29Yd2iuHycNp2nFHTzRTF8H FRpbWVz G9XxrQ4wXoRlZWDlBPDsB4H phYOqTQhhL816IIwiFnA9WC XjibWgC0GzWCZjuJahXiC1l 8Y7Et5O XAiqnvo7L4KnSkogtSS+PC9 0NEHxBK96vBXunWDan8bqcA z1AoCyQHZcIDI0vQitAWleh 3JkZXIt Y29s (more content not included)... Normal [...] Comment on above: Performed By: #### 1 [id number], 93907174, 27798686, 42404301, 80761211, [id number] ####[facility] [address] [place] [address] Order Cancelled YES Normal [facility] Comment on above: Performed By: #### 1 [id number], 26611797, 67231783, 67369280, 48518287, [id number] ####[facility] [address] [place] [address] Enteric Panel by PCRon 05-08 C. coli+jejuni+upsalie nsis DNA ARCELIA+non-probe Ql (Stl) Not detected Normal [facility] Comment on above: Result Comment: Test ing was performed utilizing reverse correction worker (RT), polymerase chain reaction (PCR), and array [...] nulcleic acid test. Performed By: #### 1 [id number], 18616653, 36242738, 55900277, 42649948, [id number] ####[facility] [address] [place] [address] E. coli stx1+stx2 genes ARCELIA+non-probe Ql (Stl) Negative Normal [facility] Comment on above: Performed By: #### 1 [id number], 55625888, 41265341, 13101108, 95481983, [id number] ####[facility] [address] [place] [address] Enteric Panel by PCR Negative Normal [facility] Enteric Panel Intrl QC Pass Normal [facility] Comment on above: Result Comment: Test ing was performed utilizing reverse correction worker (RT), polymerase chain reaction (PCR), and array [...] 1 and 2. Performed By: #### 1 027014487, 02432580, 27602662, 24060880, 92818840, [id number] ####[facility] [address] [id number] Norovirus genogroup I+II RNA ARCELIA+non-probe Ql (Stl) Not detected Normal [facility] Comment on above: Performed By: #### 1 365375514, 78416212, 98384604, 98207557, 74057558, [id number] ####[facility] [address] [place] [address] Rotavirus A RNA ARCELIA+non-probe Ql (Stl) Not detected Normal [facility] Comment on above: Performed By: #### 1 [id number], 77621768, 12633655, 09377300, 60349377, [id number] ####[facility] [address] [place] [address] S. enterica+bongori DNA ARCELIA+non-probe Ql (Stl) Not detected Normal [facility] Comment on above: Result Comment: This test result should be correlated with clinical presentations and medical history by a healthcare provider to determine its clinical significance. Performed By: #### 1 [id number], 42618070, 27147983, 05977199, 16143152, [id number] ####[facility] [address] [place] [address] Shigella species+EIEC invasion plasmid antigen H ipaH gene ARCELIA+non-probe Ql (Stl) Not detected Normal [facility] Comment on above: Performed By: #### 1 [id number], 49475706, 75244469, 31463229, 72733804, [id number] ####[facility] [address] [place] [address] V. cholerae+parahaemol yticus+vulnificus DNA ARCELIA+non-probe Ql (Stl) Not detected Normal [facility] Comment on above: Performed By: #### 1 [id number], 89259332, 90555434, 25011639, 01603299, 1330344792 ####[address] [address] Y. enterocolitica DNA ARCELIA+non-probe Ql (Stl) Not detected Normal [facility] Comment on above: Performed By: #### 1 [id number], 47529520, 17308895, 61466437, 83492983, [id number] ####[facility] [address] [place] [address] Fecal WBC Lactoferrinon 04-17 Fecal WBC Lactoferrin Negative Normal Negative [facility] Comment on above: Result Comment: The semi-quantitative detection of elevated levels of fecal lactoferrin is a marker for fecal leukocytes and an indication of intestinal inflammation. Performed By: #### 1 [id number], 74467873, 09703140, 85819907, 90292079, [id number] ####[facility] [address] [place] [address] MICRO OTHER TESTSOrdered By: Cynthia Case on 05-08-2022 Fecal WBC Lactoferrin Negative (05/08/22 9:00 AM) Normal Negative [facility] [place] Coding Summary.on 05-07-2022 Coding Summary. CD:[id number] Gh0 bWw+PGhlYWQ+ML1JLNHbW74 caLYlwS8DM6eZPN7DOHQNXW KOPH0OWK2aoFB8YLwfJ2Bvg iAv EhzuvTVhHM91VMo7WOO2wLs iHTmkgC6luPYcV9u3VgTrPM 64uF76QXjiLVTaOcP4BdHpr jsgbWFy G5urXjNhzOVpKsk+PHRhYmx lIHdpZHRoPScxMDAlJyBzdH foMQ2wTo4bRSEaDYNugZqyx HNlOiBj v9ikCCGqTEhpLY1ohNjqP9G eqXH7SMXhl3h5Va33tZK+PH IhKKZ8mUcmYBgtb777NqNpn 5dtPFA0 yIBaOXigLXN3D65ve7N1HIH yCBNgVWX7tOQ5sJ5lxYrudm vbU7FjuHVfTwX3YGQ8nISvj E3efEkf asgbwZ4wJht+R72TYB6UHEP USE7SFuf4M6RqNmzulIA+PC 37KPYxRJ58xREoaCBkl1egm Ib1BrAd SAKvZYJ5cGifQBkza5JlHIF dX85fdIRun6Q7JCGdoYhliU UqYhJdeGD9cV4vHFtznhoko 2hvdzsn Moruo0ueja69rT46I15yVMl qHJNeYOZ9SDZiPMShrBpxpk 5hsY5sGq3+XCymu6xsm5kvm Hp9MiPs QJNwuaGptSapEHC5q9EyRo7 1M5EhlNudx0MvQzj4qx85lY Mee9Y4wQA9APakGIJhoT7lS WxlZnQ6 QMBwZpRuxI65dTJwOUmgVw0 doSqraTceMA5iQJOlsduzST GhtX5uDCOflQGfcVqdHB7jH TBpbjtm r436LaXxGLW1RYWxoBKiZ8U srL4lEpZdXZGxFJLiY4DqpZ YlUSzoV980ISfvBwW6KCZnl sUgA7Bw JFMlrCdtJsP2y6M3Zd4Cz5N jhyrmDKY0PMqbQQFoXrIeOp XgTeV0T0VcGip6FVHvtEoxW Y3eO5Cb HJFpgfgjbewbuZT9TVTsDMK roG15aWPrBMurYe4cy9Y7c8 88QFHtPTFfvK45Dc4xzMiiP TBwdCBU hI3xbxgin3ogemypSrOaAGJ uYUe5CPc0MEUlcMesNeCaSM T2FdX6MQS3jVWcyS5ncBpum xtqxI6v Oyc+M22dmY4dZWR3IZJ0jtk mIZEwxjKaLB85CF83I0HdDc wvdGFibGU+PGRpdiBzdHlsZ F1vRjNf n7eoc7XlKSatA0BfHEAgJMb aDey0EOCnBHT0mGS2bO7vVO GgOCeed5U3cZO8U4IrafWxy j0ng7iq JQLsWDdyP33aiIUpv5J1ZZY lcMV2AMCefOneUgTpyO46Id c+HLRptBzdk8UmGpikm8xco 1uesSq0 TxLnANNggoQeqDyfUUE2k5T wCx32E93wPQzbFCHeZDUdAY ZrUDRuoJuxnl9ftS5dBw8+P GNvbCB3 qPQ7fH0mYXGkFdK8NCedP09 6EeXtsDKpVrhgk6qys8psxY w7QfLtYZPyosIerEzyMSC9p 2SeNf75 W61cZFvdZHGiSOBlSWEoZWM tfQehfz3ngI6cMo7+PC9jb2 gjcb29jN56fHU+KFUgELW8z WxlPSdw ZCJgyJ8jXJuhHbE7DMVcUzJ ayD83kSCzCOkqVd8huJqbyL fzQP9zVYIlzczbb032LjNsk 2xkIDEw mGJxYIrdRLA2F16jr2B8ZQF bTGRgOUX0yTF9oG2afKwusl ogbGVmdDsgdmVydGljYWwtY PilJ486 IHRvcDsnPlBhdGllbnQgTmF eKCg7P4WuFar6VFLnbKkvBG 4fvMXzDOeaLs5loOrftEzzN H7pHWAv rbwnb578KuFsy4jzXFJpyJJ tTVduXDP3S65cm8K0ZCPxOT CeFRS3gGY0pP7flLwuvgxrn GVmdDsg hkYnxLcgVVuwLUpjO119ICE jqRcyIfPyeoAzRZEamJZ9LP 10XK89iYRcf2G4nJF6S1LwV GRpbmct mrgmdQG8RQVlOGTjyX83Qm1 pcXicDh8hSIIdDXI7KXTvxN BzT3MttJ2pFzPqLPJhMVIbG 3RleHQt LUitZ173RIrhZyT7CUTyzoE iA1CaOEYorFdzTcH4x3Y5Wc 8HH5F6QA08UJ50gOSap5N7j NL8M9Ce UVBilkezptzszBM0FYGaFCQ cqP98Hi7uyKxtLy3wFAEbUI P9ERTioYIgJ9GwzL9aVkGpD DAwMDAw H9XddQHfFXxqM380GLukBhS 4XNQlafKyO5QuAPJolTmrQc B6n0P6Sw9GZUj5RM49XF67b HKzz3F3 sOQ9T8ViEPSdfenxlbieeWS 9XZIhTUOmvK48Yd1biMsrVh 3xUYUkLQP8LWTpcGJdB3Wgb M8nPtDo CBRnALDsX0QjlABsWAutC15 3QFxnWfL2BDVhzyBsD8UtUW FhiXzzChM3b4D1Dx8LDYJcN B28HOI3 bQN3IJ78LD99R0CiYjijtFF ibGU+PHRhYmxlIHdpZHRoPS vlXCDoLbGuqPneJB4sRv6gG GVyLWNv bDjqbRYeCqKvp2wbNCBhRSf kYC2fjMmsF1OaqCS2FWNkn4 s2Qa72M12pV8JutIK+PGNvb YH8fGU8 pU2fRfPaTrD6KYnhH774TeA ilJDvUdjds1umj7jjcIs3Ub B7EGTiiqHntFvnHCK1t0HmP m07S05b IHdpZHRoPSIxNSUiIHZhbGl fuo1cxF9nNs7+QELetNQ3hY J4mK7xCuKoGqC5DAkhB107E nRvcCIv Agllz9ker2axqOy7BhIyHCD preOggUksZLY0a3KgIb94Q0 RxzWnjf6AmImx0be70yICej 6U4qIK7 W6GpTVUnslicyKSfeSwfVB0 wMPJytnoeOEOnwP6fCVYfA8 m3FnQtYvV1DOswJ8JxyjU9K DEwcHQg SQucHGA9B08jd0L6UKNdSSS xYJC4oPE5bZ1klWrbeosxzK VmdDsgdmVydGljYWwtYWxpZ 246IHRv pPkeNUIndX2wLCQbjUUhhRz lAD4vFOMyxsohAqIDQX2CF0 yCVzhoK5WRBK3nIQssdDV+P HRkIHN0 oZwtOXknSHDobM3pMWBpE3t 5QyBmPiT4SMwjQ0ZsQSQgzv euGr80tU5oNtRbTeQ5RQqlJ 8SbxzG3 COIluXDoJKjiWAJ9F23ie2C 8PJOnQMQrPXJ0wUP8lE6mxY lnbjogbGVmdDsgdmVydGljY WwtYWxp P444VLNvgLquAxQ9WsVoOaW 2MTB0A4OyUif7SWOsaBsnFT 9beUOoGYzmTc8ojXelcPyvJ J1gGXPg wvhtJUKmhJ1gNYBksVGfkMj uVR9vORXgegbco356LdZjCD Q9EIJrgUZhH7HboD4tKpToM DAwMDAw E9XkmSOxQGcbK727PZxuNmI 3KFSsbmDdI6ZqZXGyhQbaZa V5n4X8Vr47BgWTZFHxrhtvo GQ+PHRk YST5uTjiRRrdYFHquD5kDZI oB0g8EcZoDmT7DBxyN7AvBZ KmyprnEq08uU5qCwLmGeB6R GtkD2Yj qcS2PHFziXFsHVnwFLD9W00 fb7U1KIFtHGQoHSA4sND6kF 1hbGlnbjogbGVmdDsgdmVyd GljYWwt OMzjK924TIEnrUsqJnQxxUN sZTwvdGQ+SXXcJVD8gXodJR oaMPLnbY5aYIZwO8p9ZkXkL eD4VZzj I1CwIAAnxahnJp24bR6mGcA eObE4YUorY3UkbgZ1TLWrjV WfCLxdNHI5H58ic7U3BJYtW DAwMDA7 oPQ7cL6gxBnhssxlgPGluVl vxhGxyDrjRAtgQMumD569BE ZilKueWa94pLNjdRzhhmB3B 3RkPjwv dHI+VX42IAYxAQ33cCJfpBP pf0vutSe6AsSmGDDsUDA2sR fcADwzl9MfOMQhW73chZEio 4C5TBCt gRbniZRtHkQjxVF3zO0nYFh enmvzo0flxxdjRpvev7osjl 05hJ26K13qNXviVFDrTVVaS CUiIHZh gZcvbk7nyG9nCb6+PGNvbCB 7iDI1gJ9kQqDtWaA7VDwtX0 92YkHswWXhLoqce3idi2uew Ml1InOe WXFzapWplMvwBOX3l6FgBs8 5V41mROjpXUNiEPDyRJGcIV SfhSnjis3oeB7cLg2+PC9jb 1mumu63 hR89rSF+FQSiHHD1gJasWEa lCLSmiK9kDJucYjM0ZNRgXg RukT33cDXlSMkbTm5dmFfbh IetXV6z DYZfopxwr174SzNqu9zkRYO spCJkYCjyMQT1M49ty1O0PM HlHAPcQID2nPK2zA7pdVxrx jogbGVm bUdkwnJnhBykVFklYLniZ30 4GZEyvTibUpLtrYByS3lfyp WXYP6gNdqgyRU+SKTuYXB3p WxlPSdw SQKslZ5wVDRnJ8w5BcNsZfE 0LTkuX2IjzqC2DOHywJTuEK LuqDKNtK9otaalc7szugjqR zAwMDAw VLq1TTy8XEGzhSwsSdAaRIO 3CiC5RTY6mCAqfS6dzJjvlj qbsR5kFkb+RklOOjwvdGQ+P HRkIHN0 qWluXFbtGNNjpV4gBXGhC0j 4GmDkDfW3USkqJ6DmcjS3XR ZeqULzPZNghKICvE3qlaedy 2xvcjog FxUuCWBcQNf6VTv4YHUkwFh bMuYaGPT1WoV1CFF8uUPimL 0suRkccwzywM6zWda+TVJOO jwvdGQ+ SGYzDXV7nOosZQvpYTEtnD8 oTQWrB3h7LkTrQyN6ANsuF6 JbsjN6XCTxdTExGLPbzQEJf I9xczmk j7cluymyMiChDWBmJZk5KNl 5GDArlYoeXfYuQNX6GtX3QS Z5tHVigX9pyJlrfmbzsD7xF yc+UGF5 [id number] ibGU+PHRhYmxlIHdpZHRoPS lfQLOuRzMqvDgvWU0bWp7mG GVyLWNv bGxh (more content not included)... Normal [facility] Consent for Procedure/Surger yon 05-06-2022 Consent for Procedure/Surgery [id number] D:127 Normal [facility] Ambulatory Visit [...] by Discern Expert. Performed By: #### 1 [id number], [id number] #### [facility] [address] [place] [address] Basophils/Leukocyte s Auto (Bld) [Pure # fraction] 0.0 E9/L Normal 0.0-0.2 [facility] Comment on above: Order Comment: Order Added by Discern Expert. Performed By: #### 1 [id number], [id number], [id number] #### [facility] [address] [place] [address] Eosinophils/100 WBC (Bld) 1.6 % Normal 0.0-8.0 [facility] Comment on above: Order Comment: Order Added by Discern Expert. Performed By: #### 1 [id number], [id number], [id number] #### [facility] [address] [place] [address] Eosinophils/Leukocy bev Auto (Bld) [Pure # fraction] 0.1 E9/L Normal 0.0-0.5 [facility] Comment on above: Order Comment: Order Added by Discern Expert. Performed By: #### 1 [id number], [id number], [id number], [id number] #### [facility] [address] [place] [address] Lymphocytes/100 WBC (Bld) 15.4 % Normal 14.0-50.0 [facility] Comment on above: Order Comment: Order Added by Discern Expert. Performed By: #### 1 [id number], [id number], [id number], [id number] #### [facility] [address] [place] [address] Lymphocytes/Leukocy bev Auto (Bld) [Pure # fraction] 1.3 E9/L Normal 1.0-4.0 [facility] Comment on above: Order Comment: Order Added by Discern Expert. Performed By: #### 1 [id number], [id number], [id number], [id number] #### [facility] [address] [place] [address] Monocytes/100 WBC (Bld) 5.9 % Normal 4.0-14.0 [facility] Comment on above: Order Comment: Order Added by Discern Expert. Performed By: #### 1 [id number], [id number], [id number], [id number] #### [facility] [address] [place] [address] Monocytes/Leukocyte s Auto (Bld) [Pure # fraction] 0.5 E9/L Normal 0.2-1.0 [facility] Comment on above: Order Comment: Order Added by Discern Expert. Performed By: #### 1 [id number], [id number], [id number], [id number] #### [facility] [address] [place] [address] Neutrophils/100 WBC (Bld) 76.5 % High 36.0-75.0 [facility] Comment on above: Order Comment: Order Added by Discern Expert. Performed By: #### 1 [id number], [id number], 7356830, [id number] #### [facility] [address] [place] [address] Neutrophils/Leukocy bev Auto (Bld) [Pure # fraction] 6.4 E9/L Normal 2.0-7.5 [facility] Comment on above: Order Comment: Order Added by Discern Expert. Performed By: #### 1 [id number], [id number], 5596091, [id number] #### [facility] [address] [place] [address] CBC w/ Auto Diffon 3 Erythrocyte distribution width (RBC) [Ratio] 14.1 % Normal 10.9-14.2 [facility] Comment on above: Performed By: #### 1 [id number], [id number], 0832513, [id number] #### [facility] [address] [place] [address] Hematocrit (Bld) [Volume fraction] 38.1 % Normal 34.0-46.0 [facility] Comment on above: Performed By: #### 1 [id number], [id number], [id number], [id number] #### [facility] [address] [place] [address] Hemoglobin (Bld) [Mass/Vol] 12.5 g/dL Normal 12.0-16.0 [facility] Comment on above: Performed By: #### 1 [id number], 5726473, [id number], [id number] #### [facility] [facility] [address] [place] [address] MCH (RBC) [Entitic mass] 28.6 pg Normal 27.0-34.0 [facility] Comment on above: Performed By: #### 1 [id number], 1391358, 4514051, 9557979 #### [facility] [address] [place] [address] MCHC (RBC) [Mass/Vol] 32.9 g/dL Normal 31.4-36.0 [facility] Comment on above: Performed By: #### 1 [id number], 3044176, 3198850, 4719167 #### [facility] [address] [place] [address] MCV (RBC) [Entitic vol] 87.1 fL Normal 80.0-100.0 [facility] Comment on above: Performed By: #### 1 [id number], 4090767, 6516923, 0255750 #### [facility] [address] [place] [address] Platelet mean volume (Bld) [Entitic vol] 11.0 fL High 6.4-10.8 [facility] Comment on above: Performed By: #### 1 [id number], 8729107, 2726990, 4873030 #### [facility] [address] [place] [address] Platelets (Bld) [#/Vol] 202.0 E9/L Normal 150.0-500.0 [facility] Comment on above: Performed By: #### 1 9541383, 6082022, 2057353, 8652721 #### [facility] [address] [place], [place] [address] RBC (Bld) [#/Vol] 4.4 E12/L Normal 4.3-5.9 [facility] Comment on above: Performed By: #### 1 [id number], 9339066, 9447763, 4483923 #### [facility] [address] [place] [address] WBC corrected for nucl RBC Auto (Bld) [#/Vol] 8.3 E9/L Normal 4.0-11.0 [facility] Comment on above: Performed By: #### 1 6130688, 1566318, 1171414, 4639563 #### [facility] [address] [place], [place] [address] CMPon 05-05-2022 Albumin [Mass/Vol] 3.6 g/dL Normal 3.3-5.0 [facility] Comment on above: Performed By: #### 1 1932384, 9381437, 0281262, 8094650 #### [facility] [address] [place], [place] [address] Albumin/Globulin (S) [Mass conc ratio] 1.0 Low 1.1-2.2 [facility] Comment on above: Performed By: #### 1 [id number], 8658341, 0114173, 4005469 #### [facility] [address] [place] [address] ALP [Catalytic activity/Vol] 93 Int._Unit/L Normal 21-98 [facility] Comment on above: Performed By: #### 1 7615794, 1695647, 6573721, 4565292 #### [facility] [address] [place] [address] ALT No additional P-5'-P [Catalytic activity/Vol] 27 Int._Unit/L Normal 6-46 [facility] Comment on above: Performed By: #### 1 8864092, 1487317, 7361112, 6088433 #### [facility] [address] [place] [address] Anion gap [Moles/Vol] 15 mmol/L Normal 6-16 [facility] Comment on above: Performed By: #### 1 8156900, 8862427, 0175781, 9113289 #### [facility] [address] [place] [address] AST [Catalytic activity/Vol] 29 Int._Unit/L Normal 5-43 [facility] Comment on above: Performed By: #### 1 3877551, 6748685, 2291609, 3671771 #### [facility] [address] [place] [address] Bilirubin [Mass/Vol] 0.8 mg/dL Normal 0.0-1.1 [facility] Comment on above: Performed By: #### 1 9768880, 7708202, 1364432, 1558272 #### [facility] [address] [place] [address] Calcium [Mass/Vol] 8.6 mg/dL Low 8.9-11.1 [facility] Comment on above: Performed By: #### 1 2690980, 8522151, 0769975, 3426163 #### [facility] [address] [place] [address] Chloride [Moles/Vol] 100 mmol/L Low 101-111 [facility] Comment on above: Performed By: #### 1 8114839, 2212101, 1773601, 8723466 #### [facility] [address] [place] [address] CO2 [Moles/Vol] 26 mmol/L Normal 21-31 [facility] Comment on above: Performed By: #### 1 9151390, 1571511, 0726378, 8160499 #### [facility] [address] [place] [address] Creatinine [Mass/Vol] 1.2 mg/dL Normal 0.5-1.3 [facility] Comment on above: Performed By: #### 1 3584393, 0320717, 1958791, 1032672 #### [facility] [address] [place] [address] Globulin (S) [Mass/Vol] 3.7 g/dL Normal 1.4-4.0 [facility] Comment on above: Performed By: #### 1 6886804, 5916983, 9853886, 4636617 #### [facility] [address] [place] [address] Glucose [Mass/Vol] 303 mg/dL High 55-199 [facility] Comment on above: Result Comment: If t his glucose result represents a fasting glucose, interpretation should refer to the following reference range: 55-99 mg/dL Performed By: #### 1 4638576, 2217432, 3337605, 4497095 #### [facility] [address] [place] [address] Potassium [Moles/Vol] 3.8 mmol/L Normal 3.5-5.3 [facility] Comment on above: Performed By: #### 1 8882456, 7834491, 9253699, 6087199 #### [facility] [address] [place] [address] Protein [Mass/Vol] 7.3 g/dL Normal 6.0-7.8 [facility] Comment on above: Performed By: #### 1 0402812, 7066131, 9671856, 9854424 #### [facility] [address] [place] [address] Sodium [Moles/Vol] 137 mmol/L Normal 135-145 [facility] Comment on above: Performed By: #### 1 5823923, 8479292, 2216859, 6364493 #### [facility] [address] [place] [address] Urea nitrogen [Mass/Vol] 28 mg/dL High 5-21 [facility] Comment on above: Performed By: #### 1 2711455, 1046403, 8338837, 2098722 #### [facility] [address] [place] [address] Urea nitrogen/Creatinine [Mass ratio] 23 No Units High 10-20 [facility] Comment on above: Performed By: #### 1 2727145, 1243898, 9518568, 7114040 #### [facility] [address] [place] [address] Consent for Treatmenton 04-17 Consent for Treatment [id number]#1.00C D:127 Normal [facility] Gastroenterology Office/Clin ic Noteon 05-05-2022 Gastroenterology Office/Clinic Note Chief Complaint Colonoscopy HPI Staff Patient is a 71 year old femalewho presents today for a colonoscopy. 5 year recall due. Last colon 04/15/[address] aTpia. Personal hx of colon polyps. History of [...] left leg with Dr. Barney, V[facility] at [facility] 04/07/22. During today's visit, patient reports [...] Refill(s) 0, Prior to colonoscopy., [id number], 165, cm, 05/05/22 13:40:00 EST, Height/Length Dosing, 95.2, kg, 05/05/22 13:40:00 EST, Weight Dosing Follow-up With When Contact Information Linda Solorio CNP Within 1 to 2 weeks Additional Instructions: Following colonoscopy. 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 ? Any problems you or family [...] race adjusted. AA=. Performed By: #### 1 [id number], 1312057, 9073027, 9939246 #### [facility] [address] [place] [address] GFR/1.73 sq M.predicted among non-blacks MDRD (S/P/Bld) [Vol rate/Area] 44 mL/min/1.73 m2 Low >=59 [facility] Comment on above: Order Comment: Order added by Discern Expert. Result Comment: Construction Economist jin kidney disease could be indicated at eGFR's of less than 60 mL/min/1.73m2. Kidney failure is indicated at less than 15 mL/min/1.73m2. Performed By: #### 1 2274469, 9677474, 6320707, 4260021 #### [facility] [address] [place] [address] [facility] Re[facility] 04-15-2022 [facility] Re[facility] Please click on link to see report pdfCD:[id number] [id number] DwvXRWcZXXqDDGbKXXLAw7J M0pumcjnOSKrBfEoOTBg NEYxGTvfyhCwt2VimTH9LTu aTf0DhyLhbK9wWTkFB113hZ UaxfTbU44bkA3aKKXkq80oX u0CscOc mJmlpwWokPUuKCY4HdWoQzA xMzExNDUyNDEtMDUnMDAnKQ o+NkfyirClZvqAXXReVP4bs ku2YLlq DKbiYMZiNl6nrNIyv7CynVA 2p3BLP7RpahBAGB1wZE3Lou ygdX0LRt6NuZJhwwAsMnfzH r3elNEM p8ilWu61UcNaYKKsJADvOEV xBHRaCCMaAf3EuQFxcJ4lJ3 hyzNrqYfk0Cn4PhSHcQWF5E DrcI9Sm yPAuJgkDO5t4ZSabD9CkN8h wHDFCL7QzsFpccCpfyFV9CN KWF3cHCAqiwAXgCMP2Dn4Ud 2NlbnQg FJY8Kk4UWKEaKM38NI9jIFY WR0vkJTJsywayBLKyIw1QHY oBvWP8hJGaNIXeQd9YtqbRz ED1kQD9 XGVHBt8UIY9rl4SoAlBqSSN gHewQWDeXH7A3uLGrY8Oozw BOU0T7QxL1oJIkH5BepLASk XQzNn5X QIZpZq3koMUaRGPxIHyQYTb uQhlyy2QNuKXcTTEoRb4PPI U5M6psvrWbJbXFI4AdE09pw P4tJG1W uB2EgdQjNV5af0ZlrjyRJ3H dwfNYETKtxdmusI2wPVUuVP TRMk2NnHC7xWDiPfUcHgtsT CAwIDAg MCAwIDAgMCAzMzMgMzMzIDA tHGEpUefaVnCrFaL4KDDsUe zaXBE4UAU7NmY5MLLgNGX4G SA2HqQ3 CQTvIRL0UMUbFEA7TRI3NuE yNzggMCAwIDAKMCAwIDAgNj W8UDN0NnM0CsKrSdSlSUL9F rS9HGRe HEY1YyQpKah0NUJeStY6JNB 2MpM4WkQAVvWkGMt3TVU2Pg fmVVN2WkEpZlK4PQBcXNT6C jIgMCA5 TPXiATM2HrdlHXWsPKZyTIy hWWFcRPT6SLFsHWM4EPCfNH T3IIHtRXL4GKB6PXZ7THMsW QY7TXAe JrKuCkIiAFJuEWWlWoE2NgW RKAD2EAC3FwB5WESvZCV7KM YoArM9DIAgHzo5PAG2AmD5J DAgNzIy NRPxKWX2XCTfZc7BKK5mo0H iGypmQQOpOdxUYIcUH1X4qE QwB7GslfYZRWEwushxeC1yI z6Hv708 ZsYnEWDiBCVpOHufVo1dQFc 4JGpaN29BBs3RxMVyewVcVd ufQl7kcKQCl8zyLt65RpNvV GH2SgPt RlfhIHOdBNeeGu4JfKBraU5 mR0qsuTqdXov4Vb9KhRQyHF J4TJhnH1EtlALkEkqVA6y1J NwcM8Fk Q8xjMC6sQvktX3WkVKNsL0y 9GQbsNialFAfgqAfsrQK1ZC tSS0TpY7CfbDT0MCWMB5Ppu 2NlbnQg LTIxMgovTGVhZGluZyAxNTA HV21asNfqSTKzBMDiJwLXI0 X8Q0nlWOFjZKR7WGj+Pgplb mRvYmoK PXBoAS3huch4PPvbPOpnZKV zKq7teNbmP5NohTlyPDRkQS W3KBB3eRSAM3Gfl1LBi775K B4Hlgec hW1Bb3wkHSXyhUgmZZJBD2P kqqP2F8qwluCzQcojMWYouI ByNQVnXKE8Yv1XhvOyTDjaZ xHpA4ui XL9imIPaX36tlN2oPe8Rm32 2OPAnW2BnjRJvonD8BZEsFn pcW1imnSaeXEspQzt9VBLyH CAwIDAg MCAwIDAgMCAwIDAgMCAwIDA KMCAwIDAgMCAwIDAgMCAwID AgMCAwIDAgMCAwIDAgMAowI DAgMCA3 MjIgMCAwIDcyMiAwIDAgMCA wIDAgMCAwIDAgMAowIDAgNj G6VVAbHSQnLMDxZEVdTPAuX CAwIDAg MCAwIDAKMCAwIDAgMCAwIDA iQDT8IRWqOZJnVVNhMYPdSU KfZUA5JWcKYeKbDQQtTQPiI DAgNTU2 IDMzM10+PgplbmRvYmoKOSA fMG2szcv9XKtvYIknXWEbXo 8wcUDxv5KqwZT4g0LWZ9Gmh gTNQB5k LU4KzbcgxG5Rr9bpRZTJK6X oODalRWSuNy3Hz515EwUjfS FrYBYbHQUcEhs5VZRdGLSjN HO0Fp7X R12dn8HzyytKcZO6hERzVqz UJ0R4PD0RQEq5Dw2SuJSgKg L4OQlyCLVmiOfgVW4ztGJkA BgpP2Rw IIAmX4h1LCeaDdhjPAlweFg ojEC4KIxXK7VwN3EueWF8NH HOA5Bkh0PfsdByZEWeCifbB GVhZGlu LbAsWHVYL04kcZenQTSbTBR sAEPZZ0C9A8ggXDVyEIF9JX o+PgplbmRvYmoKMTAgMCBvY moKPDwK Q1K1gWOlB4NtlfQIY2D8NcV 2dKCbZ6TyyEFFhJBaEe1CNE SuFh2oiGJrUGEaOSvwLf1rR P1SNm9S rBXmzJAaWOFpOzQVW1asr6O MfCTeGDCqSZapOW5ro6Vktk xiR1xquqEuu6dNirSlPZiyA qciXt4f tRUcj0TejQM7x8SqPUQdSNL CR3fkOAKahsTfCTO2HICvZE PtNKA6RDAaICAvMLRcYfSxC DMzMyAw XPUiHpe5GJGMYcp6LJQ7IJQ wIBD5ZxD6ONPjWFU4SYW6Nh H3COWwVDWeJCSwKOBaZtGkR CAwIDAK WNK0CXPjHZY9TfHrRuDuDUm wWrQ6KbSkMeP4ZTSiWSC1Wt zpOnGxMLQ9GZP2FOTbUZC7T TEgODMz KgewWhV8XnfiHvB2MSt4SYI 7EvDoMsY7ABXbGLYmKINvNS X2EJEbDTXzVRMcETEdIvDuV CAwIDU1 RtI8KAVwQAN5RTUpQRH7AWK jIcHdCIHsMTH0VQXfIva5CT QlWSN5EMD7TMS1CWtTQuPdH DYxMSA2 CENeMYLiYAgpNJW2EPBaQvN 4XKKqEVV3ORq4KLW4UNRhLX U2XT4+NdTwOO1xbjxoLZTbB P6zses7 MAxiSYPjJ2JyLBX9NIJ1Kb7 NOS6dnIdlOzl2QyvdJuoblA VyIFsvRmxhdGVEZWNvZGVdC j4+CnN0 lkCbfNk83jFSfOKP2BN/976 P+1yPzY74bTW2noIU3LBIEe ABJHAxi2pUiAyqqeoqqj1IP iQCUhDK fGKTy3DJUej2MbDQPVo+Jag RLPcPcRe8dCL5z9HaG6IkZA YNXYIZI3Re133wFMcC/+hM7 Tv57e/e s39736pb17mAQFDUR5ZGBJa x4wO4MazMS7YzAGBwlKbyKp vevDLDBLAVAchLHmhav/Q3v 0w3FGRg VkER1SwAE635d4FuIF+J90x qFEP1xy7SURIqbjf6mcshlh etKggQh/gM6EnAiONGamRCT Ihdg/ef LKRflbj3O1Y3hao292zSmr0 HzzHQ95o9W8JPyR1g80MsLf tORJ0wq3Sv+6eJeUt0IXU92 4U4+gnU 8duNgOtPK4WAIdOr+EAewsR VVSeu6GJuvZY0brJOT46ag9 ZOCrL8MHPV4bh0GpQjcWX6Q ZPW1LHr Uu5NhsXiP5h6MY8OP3tSMSx Roady6Vem5ne6LgRDKDQm0O rK4JJjT0rqc0ZuNsrXy9T7Z gr5dNIU SwZOrr9PUS1wUAgsv+BD+Ct NNOFrVD5kHhrzvSUoIafVpk Ou83qqVW2dTEVtVSInz8qCm USnYtSV pQuwwJN6GGUyXwRLnEyzACL OSWVpLEOjbJuil9MymnnRYn 3FJsFuUuu8dGgpdOTfY5L3J /pRrtBs RdX6qpI7WEVt6XbTulFTEt9 6n+3RVIytgAppoEMGTMGqfL hGNeZcDw/Aw8YwWFjKesls5 INO2A+H ISMd8Sm1FNcME+AadicWhde VTwrJApQgyiqyiWzFfrTeJD oKA1LsfVL01qdt74BcUiqAF i+y3EKf psfp2/Qd+jG9SD+bY0wq5jR lWk75ZkodVJVyxd6Vd+ROeb /9jtoJTbDC0oM0dtjqs6yih WUfT348 yvjMRyvlvPLeKF4SRJsMMQT d1xAwI1ZGgB6wm9Hkd2mL+u AzXgfKwGAlXAqJl/jJfJQgW UhCZAVZ TdYNV/RpcO3fFsjbxfcFXwV nyR/LT1zznosqPo7l2jG3ro hcuoAup0/Sp+ju5IA9ou32D M9MPhFz S4FcJVVFOR7bLdSjf+RHmSc hgxJZB6Ce4mZ7WjpKaYoR60 GL4jzedKj0HeyacSr0lisGf qFMVaaj NCoPKZuUVmUvnuh+pV+Ntro CrmzpF7Ns0f65P/0Std1XUX BrhxCYIMBaCQCcm68px+xT7 wopvr0G wNN7N81KCPuaqak4OKsrp2G 71BxII+nyZJjjcxAIkm07Kl 1egFoyP2+OzSXjcad+D9ckG 8TOB6UZ eIiaaSjpgl2MY5R3tFy5ENz qniQcU7rQYkDlHpzrIGsyCV /n99MTvs1B8BbJ7APas5FQF pJZSis5 MPnpI80KWIWxsCN3S6nhAwc DMFgpfvJ6mBOWqeLT2JS0hn qIJsYKbJmekCyJBtGt7yPB9 IW1mWTD dunMU3KppNePpMUPOLo4DGa 2aFCj86hzmEAfxBjjAJXVVi 2d8UDjP1DmWNOuwT8K2dtlS 1QmaLag EkEeQcWCigQVClIFyYIkQcR zD/LHqXFC9zQ+c6jB0QzqTz AAbL8GTaKyvTvKlGv5uG9SL vSZSF9u kIOrLEW8M4ZZLz0PLpfdAPF 9KNfWiDM8z3TYTOhSOjaUDo 8H+UPE+4g+nIsFl5ecaFcPh xHdiJcQ oKtaLjAx2quvU03Btsl4PtY SN42z11V9Bik1I2wqntudKM tS1t7A (more content not included)... [facility] Please click on link to see report pdfCD:[id number] SLWyBlm7MTXyNlWM7mget5U RvwBOCvLJMcMAKbAAPNLv6Q N7nwllkkEUYrOfEvBWFe PHAyRFywkpBjv7PedKQ2CJt bIk5XlcFvnR2qZAqGU007eA WncdRvG24pfZ5tQMWdz43gM n7NgsMk cKwtuvXoaGPqBUL1TiMnZtR xMzExNDUxMzQtMDUnMDAnKQ o+QxjeqyOzKdvMLBVsPH9gd kz0BGsd JLtyXRRjQl5eiRQgc0MmsRQ 9v8DSO4PudxAUNQ0nWO7Vzh ohcS8Zz7baUKYcsGzrTKKMV 0ZsYWdz HRHiYf0Dk203DrVxsNZgJPV 1TMTbVnl7RRKaIRFyUWQzPT 8SG20nc8DtvwyElJD2jFJqU wpOB8Y6 GS9FMBr7Ny0BnBRdXlL9BYh qMOMtrYahXL5waVTcPBUbRp 8KSWSADTtqfBVuIbU3Ky7SM RJrF5h6 MDTmELtmNUArIY98KCamJRo wSGOtP7FmfJWyIhRjTu1LBR DiaR5xXRS7XXjdHRC6Q5puk GggMTMz DkllTHUbA4pwbGrjIWp7Aj9 +LeGcKA5yifa2NKByx7UzUc o6Ss8CfYFuLW0Vn432Gu1Sr RZ0kVXd KH8AbqGiQPiwNRtwAgKqDFM zhvFlJ4ThbWImVIMsqPAUnS CcqTTPGHncWgfdq1ZVmICwE IHaDd9Z EPI4V2ibtlYgQwPBF0EpG54 ugS9gGT6EbQ9XgxDnBS8cy2 IbntjEK8KoipHNPDXwrevhp H9nRAAh WWFHZa8HsJN7oJVjHrWxYyz gMCAwIDAgMCAwIDAgMCAwID AgMCAwIDAgMAowIDAgMCAwI DAgMCAw IDAgMCAwIDAgMCAwIDAgMCA wCjAgMCAwIDcyMiAwIDcyMi M1YpEnQPL9GHTnCFZ6RaBkO lg2GXDb MGXmBGlzKmk5SpRuTks8ZVG 3TcPkRIzpVnJ2QumvUPDwXW AgMCAwIDAgMCAwIDAgMAowI DAgMCA1 WYIkDdKbBHR8KwO1DURsXMJ 5KMKmLlB7NVTjDnXdXZH6BV ZeVWX1CbXkJpmgPZc5NzRqV SQ4WFYu EcQpEPXkVks2WJQ7NkFrBdY lLiJsHAU6PgLbUNVxXGT3RQ 4+KvZsRC2bosa2EGAsz4FvN fs3Tl4K xBEbWO1Ua991IZOdR5UoePH sqqblXs4ruS4kcVNvU8QenK PbBGGijPOMERxcXtldL6MqF rNEZ1No seKUOb35RRmaPrW1JN9nIfP hSnLbGABjBHE4XFmfBLgct7 inE6rsVLUpNIY7FUswC6Ibi UggNzgK O6Q2KR4OVXz7Gd2MvQQenYE SghioIRQvXt0MTBAODFvxyR SyXdK0Rt3CQXAfI9b7GLEdS QovQXNj RF80ZRwoLWqoIKEzP2XvmMZ rDlCyGx2LLONcaK0cSWM2IB lfQVA8E3iblBxyQnToBVvtH KFcH0rc cPbpVWx9Yn1+UwWkBX9kebw 2FRWik2IfCjo3Nw6OxLRwIS 7Da379Qu6RpOD3oDBnHT5Hv nVlVHlw RPjmJfFcRGRkhlAvN4HvzTF fEHYfaGDOUUkuEiuby8EMyC VkZPDjSo7TTJI2W9nvpmAoC pCYX5Km U87vdJ9zQJ7FoY5BuhElUO5 cm1FccilMQ2FhcyLCAAEeqp iodJ6iQKbpXLIXKz5BaCD3q HMgWyAy HxlpEASfQSI2LvVaDWh6FOA dLKExVkSsVWHqQlJaRUD2PK FoRfhwGvHrCxR4RSOlAjcrT DZ2IMF4 PqZ2YYTxVPQ4DJX0GyO0RPG dJTF2CDSeEZYiLZOgDkNsWR XjXZc1YtI8PDC4MUZcSXC4U jIgNzIy NTsiWfA4KpKcRgO3DXIrXBY 7KqehQlVfCHQ4HXE8HZIdIq ByVOYeAVD9JgENQuTtZTs9H RE6Fnys YXN5LsFnNeB0CAUjKCV6LxJ zUrG4IYy6ERGqYFJ9EtVrAH XfHQUfAmMeDTSvVKE2WtE6Q TEgNTU2 ACLaIJC6LFRtElDdDQMxPYE 2AAUbJrc3AAA5EJG0PBCsEc a4QTy9TJf4CMBrDbDlPMKkC AH3SQAb Hhj1JSF2FbBcQzTbMnEcGKY 7XoR1GttzUCK5RWD8QeV6TD KfLb5IAS2fk3FmCtpnBPNbG moKPDwK G9H6bEIwP6BpnqSDLCUcpkq ckI4dIs2Bn922SfDkMSBxJW KbPRvDIHhxCfefH3PmOkRGV 0ZvbnRC Xb93SXaaRrV8YG7lAmAgCdB sRJNoBENxWZbjTNeyc1seO9 caAGUgOAP9JHrnB5OfdAgyN hpHU5F8 SS5AMHm7Oc1WlAUmxMGBojk gSEHsIv6FOVMSOYkysOKyDl X8Oq0JLDBaQ5y5YVOyKYdgI XNjZW50 UAonIQxxWRIzJ0PphYUoEdD pLe4KZOKdwW2hHKH0EKdyMO N3D2tcjJnpXfJvUOfaJYTxO 2lkdGgg NDQxCj4+MiTpRZ8xwixyKLL vCZ3azlf2DJkuGEvlETBdQy 9iaXzbU8IkzJaeYSUrYLY7V RC4lRFY W4Vrp4CHj357BP2DuajwcY7 LQz1NaJLszSVeLNJzQyVGK2 mjo4VPmLOiEXHnFIpeSL5wi 2Rpbmcg O5smjoXqi4bMydFvRXixExm wYu2sbIMfd8VgcRL0j2MlXO IsRQXWS7tvSZXpvrHsUXH4T CAwIDAg MCAwIDAgMCAwIDMzMyAzMzM qLUT5YNWlFSUlLxIjKxq5QJ C4JfW8AEFwTQD1VVW2LiX1N TYgNTU2 RGV1XbY5MDFrCSQ8IMF4LqT oYVJfSNOuWbVrADJxEGY4Xr Y7FlnpUKX7WvKsRbY3OCIgA QC3Tfce YvTtHOP9CHObNXScHNT7QIm fEqc8JvCdMyd0EWZ4IzTmCD xjXzU9AtwgXjKsQPBtPIK8R DQgMCA2 NjcgMCAwIDAgMAowIDAgMCA 5ZZUzFWE2EGYqVLT6AOMvFZ D7OTR8ZBV0BYJwYDN4RRExT iAwIDUw LPVzWbEkOHUfHaD9CoL5VYN lUDW4TVDaXbFwHRMrFUFmPc rnTDK8EPUaGUY0PjVoVJZlW DUwMF0+ PgplbmRvYmoKMTEgMCBvYmo NSGxXN4udmhx5yKBtZBXiAj vgOMZsV4WoWLE5BgMXW0Bcx HRlciBb I8QcIDEeVPLwg7OpZXa+Pgp fkUYmTR7VlCtSHZ0dBHIAA/ e+j/q4z2PZf1gXrswmIftYJ AIkgRiW WUuOM21RQ2EJBIvdQIOxPuC QyoQCgpvQxhJstQIBRQGJvi AzJKDtQcMRxdT0yNAEWm9uM CxxximU XnxJc92MJsFtAz/oTO07+e3 v3nPOO/ecc+/pqbRWMOz2pU R63do1+ks5hw+l8xeOSc9n0 fHy4yyp mkJtBRXNBw6bWu/0N7/YuBg q3kgR9vBBIRC/ec+F6Tg/if hRh4AXwAX0NgWwIv9XNd1Dz 64nrSoI GSc250HgfIW7SH6KOJXULXY 3y51Jr03TifkVzlJ95LbkV9 1ua5kaHaYRKZ/V0HzPW+OWY R5CWCBd 74f5nvp9mojntJOIK7HWDQy H0PAy58w6zGCNXH41Z/hAHs DABDY0zvLIHbgp2LjbTU+98 NptVY2m NEVQi/Rq7S3WAXm3VvBiajk gbRZ/D5Hv7N1wWa9CK3vTfS z0kfuEdk2ML+h1eP2iIjdtr 9BnA+xC Wy+y85fl5L9sfgwmUYou+YT 21cbJUr2+hnzJ7i4C94/gQ/ frAJFHTNsPiv579KojCyAqU U7sTYvh CPtyBa6sQQzVFqeUM1nRo6D YyIMC4rQpGN2W6SJnV54R89 lTDvUL8FTNOIR25swyIe3oD o0UHpXl i6CHHEzRUqiQyDAyIOX6Gl3 TqKvVe91ddsZDg+VLynLlAE qfOp/z2LXCfTIXylOREuhBq zd7HvGd KV8BzyBUrGZExW22UxgOUjk PhyECJ+CwxR41JbksWhQvHv WIoP0YoRWHTYiixypwfR637 eN3nVKs m5zA/F2v05C0oCgWT3Supxz Es4oM2wr7IclqzWy/o19IIN taMMSrpKg4FD9D2rDagiccQ nm//JH8 kUIU0+jUjTwz3js1hiGmA7c SxjTs6A22fz9vzEFrXKhCFW yKppIlXLwsQ4NtHFtqZRfFZ DpjY35U hrRvZOgCjCe8jIyALEhHBwR FJL8DZEf1WJynICWUgUd3KA 0e12iajB/V37UsynhBjb1e+ qroXLqA EzyV5oveK/KMLXVc9OK3xV1 Kavitha/Fq2melPSeMKmkAL/kR5 imVMJQAExbPru1aB1ny90Ra u+Si+X5 8n1Y+8d4cueDk5WfvrAuPSH rhtZbDeujmJHfT23ptdDxjg f5Np3wlYMH1wm+uXr8NH3Af qgoU5Ke qQ7ev7lTI2kUuZixS+2obZZ dqN0SJOsQyUR02ryr4kM68E /Q+9OrXNMg7EW6IBXql06wK RrNmmzL cYdIic4z70Tmwt/XJBtUymd hgbQImpRaKYpdhkNktbyZvC q03n02FVeFAbyxfN66eIXkO 0Q/6dPS EbaehdinmOkVaZfSyCaSWUo hERSt8aS3muLD20rYmQ4HCl AujHi9IVyGugBCc7nKtZIfz noee3wx aBJE4nR5pxDjD+6gU+mTtsF TOEJoMQ1l1SggzAzKLpC8/V hrkIupUkU00GOuFhgDCnbiT hP8KMao yXJVWtR4hUB7vcVFQwxSQik 2oBJBHkHFgooEFQpSBcmCJE HEcw/kJ7ugxJ4lbhl1N/Eq4 cRZp4xb pTYFDcWAlK6PdBc5wFlHExM qQnxH73ZImgvJYFHBNuvm3O lBewV5 (more content not included)... [facility] Please click on link to see report pdfCD:[id number] OJBgLls5DSUlZwZF9dyna4Q LzcBZDlDQYpAXVkTXDMOx9W P0vruvzwYFKiWgDyUZTs WZDbUXikoyPin0OhkQK6CQi gSh5JeyRkbU7nFPzTB601oI FwazYsP01dlN8wCPApy63jQ d3XtdXa sQiqzqSjjAKfDYO4QlXcAtW rUyGxKXE9DHAhFYWgVNQlLV o+FwwrlcGnOqwITLOeHR2ti in4XTab DPfzGQLoWk5tuUMfb1OcpYK 4i0PYJ9IiixBPUZ9dBX5Vna nvyW3Bw6wiASVlaSucTLGUY 0ZsYWdz OEJwRt4Mk200DsCezTReHOJ 9ADLeQmi7NUKrSMHaKYZyUG 5ZB93qy7IrjyeGnME9hMKvF mdQK0B8 EC7JFEm7Ge3RvFLjNrE1LTj wWYRohKfzYD0icUIzSVSiVm 9AYADHVGytzWDfRnW3Sh2RZ CDxA5c4 JQRhNZpyDKTpFL44CWdeDLl eXBZyQ8SstXQzXjStBr6WOL PzpU9sVGR4EEdrUBB2H7qzd GggMTMz IxiaGRUeV6jjyXxkHPe6Ne5 +LmBaYZ0hgia0WLQzt8GmHk d4Gh3LfCLmHH9Sy559By6Wx HJ2dGSy JY0GdlSzZZvqPSgdZsTrENK hiuXlM6YxnLImTZOzuPQRcG SubASJJRliBqfwm6BOnTUwM MKaSg0E UPR4Q1ifnqGrEqULS2SsW26 ahF2rZR7QjU7ZbaCuOH2pi0 MzjvqCP8ZhwzUOUBOsqmiue V9iYWSb OYKYMf8CqPX4xXHzQoPrTlq gMCAwIDAgMCAwIDAgMCAwID AgMCAwIDAgMzMzCjAgMCAwI DAgMCAw IDAgMCAwIDAgMCAwIDAgMCA wIDAKMCAwIDAgMCAwIDAgMC AwIDAgMCAwIDAgMCAwIDYxM SAwCjcy HoPmXAT2BoQ1XjguAHUvGEC gMCAwIDAgMCAwIDAgMCAwID EEYCYwACXxJQR5HNNtRQE4N DAgNTU2 IDMzMyAwIDYxMSAyNzggMCA lITW1IZGnMiIoBDA0KTTfXO AgCHC6WKC3VDBoThRxVJRdG SAwIDAg FZP4XEObAz4ETD9di1SqArw vFYHiBogSVZrPU8Q7cUPeH2 OhnjXUTIYqkzpmgJ0gCm1Yj 250TmFt RYCeHQTlGIlUNTtbHvsmD3P qQrLLT8DrpgRKNj89RGjwGa T3QT9bChVfJsXrFMCzVVRmU QovTWlz i2onD7cgQQEnAFZ2CJgsO4S ngOkfUepNE0G9JE4OFAs1Gg 6GqWJwwPOBsauyOEPzCt4PZ XBIZWln qBIeBqV8Cw9UWJAtL8b4UGQ iUZnbUJMuXW16QZhtHIbhYV QlE8ErmFGoIvEuQj9QAFZzb P0dIGR4 MHokESJ7N7ukiMxtJpPmUQh yLBEzQ8dnsSzrXBQnVk6+Cm BdXR8veuy3VVWtt9QcIge5P g1WnCOv CE1Il717Vs9VgAA5oSHfLH8 UcnVlVHlwZQovQmFzZUZvbn BiC6BycKHgGCESV9EzhtR3U 2hhciAz MgovTGFzdENoYXIgMTIxCi9 VuwMfOMogKhWhN0okCM4euW KnM37yeW6sPz0Jo737QBWoV 3JpcHRv vaO5VNCiAjbnS8wluBecVOu tMjh5ENQaWRZoQUPsTEHjSM M0MYTgHFUgAZSgGAZmMaPeV dS6IKWs DwfiPPU5PXF8OzV3XCSeWGL 7IIU3ObV9XRVjJFA1UFR7Az N3NPUvGCN6QOA5AUGzAHRkH AowIDAg TIF4TxsmCTO0HeDaLpLvCXK 3CyQyVDq3AOWnLWX7UUWpJB C7KoLkFDjjMxm7JrVmIsq4L WP4CaNy TPbgIhM1BtwpYmDxAGfnAqA qQVt0THHmARQlFEHbQWQeMW cePTTgTZR6MEIkMGP8EEBiJ MI1GSZa KMR8IOF7DEP6EDQnIBZ3KRI yMiAwIDUwMCAyMjIgODMzCj H2ErQ4RIYmODU7GNNuEnFsK DUwMCAy JmglTGR2CLPtTNB6OsRzDYM wIDUwMF0+PgplbmRvYmoKOS GmIV4abjr0UMomPThgQSLqX y3jzJDh q9YlrOK7a0MKN5WpwgZHLQ9 qWU5FjqgnqM4Ea5ezQLHNA1 YeWYuoDGHvKo5Ye816CyGlq CBbLTYy EDYpPap4EBSrUCDoMUF6Xb3 IX29yz9MkazmVgFL9bXNbEk yFP3R5FK3WNRm8Ul8AjUFqF zL0EYvg COYljMqjPQ7jmSWfHAewA3P cAVOgO2i7GDmiGgmrVKsnaU pnmSS6TPjDE4CoU4JjgQC4I VKQJ5Qj x8AmhnWqZVLvBvefPPJtMUr nXlMgBNKXF46zvXctRBWdKQ OfVRJYA7D2R1tbWDZsQYS9I Qo+Pgpl bmRvYmoKMTAgMCBvYmoKPDw CO3I9lOCbW8AvbuJNO3P7Nl L2oVHxL4BofNVFyGDzVz6ZE BCeMh4t vRAzWLRfPRpeHi5vZQ2OVy4 HbXUeyETnOMUpWrLYI7lwj4 INuSXhQBRxZOmvSK7pv7Hxp hvaP0wg hbLgy3oGmkHgYDlvTyegYa4 anEAek0RryWD0b0DvYTJrVS QUQ3zuAVBharSfHXV4QYZqR DAgNTU2 IDAgMCAwIDAgMzMzIDMzMyA iKQEzGEYsReF1PGNwRPDqTW AwIDAgMCAwIDAgMCAwIDAgM zMzIDAg XLEwSlEjNIKiYPqcZgB7IsT oWnKeQVdrFyMkDXKzLXU5Ti qaQjFcFNM5FTUmHZGdRvLqB DgzMwo3 BvElAfr6SCO4NhW7VpdzEkY yPMP7BkW2AJByExVbYKTfMY V3RUTcTzF1JNGxESUmHNXQX CAwIDAg MWV8TGShPUQ8QFYvQMW9OYI vViOkXHWeWOE7JNSmQke4OX YtNNS9III6ZYL3FDkBOqDjF DYxMSA2 CKZlBHYlBZxpZGX1ONHoHuN 3PPIhRDJ7RLm5GYC0INNbEY U2XT4+CeRaEV7wrpbrYPCiS W5npmw3 MIzaKLmvMEXnSw6gfUFul4V fgAA2a8RVU9AjswYMCS9fRD 8HikbrbR2PsBOdyYWTLRxiZ uwqL5Uy QnOQK0JigfGFBg37RVteZLF 6JN1wRdZoYMK4BMW0EPfzLd 3ZfRDeyC5xK6pcmIeqBvn1N t7DfPJd JKX3SFsgO6RruEPvEkmKP4y 1NYxyH2OlX7obEB9zWuvdI8 FwQWGtB6s9QSxjWyjpGIsri WdodCA1 PFgLB0XiS5YjzKH6YIBEE7K dc4ObycGdRKMnAdwpNXBwIR xcUoTzMJXQF89fkPklLANjB DEzMzMK U4C2M5usMAExNMN7KCu+Pgp lbmRvYmoKMTIgMCBvYmoKPD zHS6D3pLOdI8PzjySEI6M2A cZ2sPJk B4XhsOWQvOOvMv7RCTSsDb0 udCAvQXJpYWwtSXRhbGljTV FQE9GkykG2C9hrztJlYhqbR GFzdENo UBVwPZI3Bf0EfaOoMKlaZpO tT1aeOK3opCCvR22ufK8eRk 2Of950FWUlX9VikBDtrhYwC SAwIFIK N0jeEEMpqoFoSUR1HXKbCQF gMCAwIDAgMCAwIDAgMCAwID AgMCAzMzMKMCAwIDAgMCAwI DAgMCAw CUBnYDQyBKL7BlAtSypnHDE wIDAKMCAwIDAgMCAwIDAgMC UuVXOnEQL9OvZgBSMvQZKhG CAwCjAg PUG7LzksAbw8QKhsDwY2Ihj rQLExNZPeHUKkTZF3EdHrSB OrAIMdQfRlNWMdTPO6GrGlW DUwMCAw CJW9LdJkUFGhXIPoLBJbCIV vCjVqMMiqSJL9CzLjFUYiSx EvAMEeHyf3UVR4Fq8+Pgplb mRvYmoK NUKsTDJzPyoFMAyAI2conmj 1qOLtDYUiGmuoFTWhM5ImLL L8ZdAXQ1KkcLXhfzMmH7TnJ XRlRGVj n9FnLRi+NraoiPRyEE7KnHx IVT3bIAUTM/e+j/l7o8XKa8 wCecsjAdmEQAIkgRiWZHfJR 83VV5CO KJsvDBIkAlIQyoQCgpvQxhJ stQIBRQGJviWoCWUqRcFMtb J3iEVJOq3xZBsnfrpNJojSa 99NMkCn Tv/oTO07+v4s1eOAN/ecc+/ yuiGOPQy1sNQ41mm3+ks5hw +i3owOAc6h5gYe5mxialTxQ KNRJt6n Wr/0N7/FqCfm9fyP9gTXDPB /ec+F6Tg/jgbFc0QLmTO7Ys UpZx0DHu7Ng66zbRpLSFm26 8OikPH6 EI0MEKDDZWG6j23Dn91Tdbz YemJ18FanE77ms3ozYbYUMD /V0HzPW+QEYY9XOTFf59n9j cm6yzpc tULJK3XPVCuD6WVf63t5qNA QAR20W/nHIoZYNJK9tsDGAc gm8WyvCS+81ZjjAA6eSJHEd /Za9D6D BMb0MlDvywgozIY/X0Es9J3 pEv4DG2xPmHg9uzyWxx1OI+ g8kS9qTmghd2OuW+xCWy+c4 7bt9P3f gmtkPEor+UJ20kqJEj6+xlm V6g5M44/gQ/grSSTFJExOok 302AwyWjWvPR9fPPluXNywH l2rKDxI IxlEB9rKo5CRiYTP3wQvYF3 K0OPzZ71P58cGLbRY8DZXKH T56ukdWb9xLp6JBdQni2TCY ZlHGsmT cCBiROS2Ce7DjMcHe48jocA So+VLynLlAEqfOp/v1UBIkN NHyqFDQodXglq9SpNjIC5Uw qOWbEDZ qG06YbrBRgqZtrWUP+DnfE0 0BszwJrTaPiLQgK8ZzRIHIZ afkiwveP499lZ3lKQqm9nP/ N5c05A5 lRwEB9IpxrmFx1tH7uo8Xby xvUg/s26DBHvyBTAhfEm9YT 2R3pXe (more content not included)... [facility] Please click on link to see report pdfCD:[id number] YHEvZby7QFIsCrXH2hgfv4Y OdzAQHzFHOuAUVlVJGVWq5Z M9iebnmzXHUcTpHkRCKk QTBlWVvbgnWhf2QvlHL0SMy xWr1PcmZnvZ9eHPfYV492mB GyzaKeC65ynI3zILOvi99yK x0HohRq fDexewGgcPCoNEW8ApMtOkJ hZuAlKVI1ZeAyBLMqFRQpJI o+UstczyPjZolBQTKqBV1zr hj3ALqa YOhsXYYrSa5ztGHxy0TskQY 9s0SUB1OvgnIBKQ6nJG2Ibs xkvS8Jp3gaUBCkfAdsEKHPP 0ZsYWdz WYKhPq7Kz419YfRdgTFmXAT 0NVVmCmf7NWIqCUHrSDVgYA 1CH81gf3ZxbzhYpHW6gFCyG dzSE2I0 PP3JSMw0Nq1RvENiJyT8JEc mMSVihBkrES5piWZxMNYvYf 7LCNQRPSjiuSCzByG5Px0NU FRiK0w3 JPRfJUwwJXYpRG65FXacDUa fDTDaE2MkdJYcVgAgJl5FVH PzcN7cKYU0FHskNKF7X1djr GggMTMz GhtpCKPcJ5rbzOtfXIq3Rk8 +EnLdUM2xmgs3DEZye1LcRi c6Wt3UqTEzNC7Jh766Cd7Ko WV9oWUw EW5SorTmNEzsELycBtYxOUV kayLtV5EylTYiMTJxfGEJzR VdrQFOSSdtEymoo8JUrDBlS DAfJk5X AJL6J7qvxeYxOOXPK4WsQ71 wqK0pYW1UcL7VnmPqEU0uf8 QlxnsJA8CnyyTENHBhexndf W0jMMPe GPFSPk7LfXJ6aXNwYyRdYxv gMCAwIDAgMCAwIDAgMCAwID AgMCAwIDAgMAowIDAgMCAwI DAgMCAw IDAgMCAwIDAgMCAwIDAgMCA wCjAgMCAwIDcyMiAwIDAgMC AwIDYxMSAwIDAgMCAwIDAgM CAwCjAg MCAwIDAgNzIyIDAgMCAwIDA gMCAwIDAgMCAwIDAgMAowID KsYHR8WILsVCN0CJDlNEG7Y TYgMCAw TWWwZkb9WVNkGBA6CESnXCd 0EwJpWVQ0VVHfGWMcAXZ8MG I1YLFaCvUbZE1+ZxXkUM2sk gb8FRFk c1JvEom1Uc6YfDHbAP0Lo84 0BGUmH9GwsIMasjckUz9awF 4npZDxX4TquEYuMSAOQ2NaS WdzIDMy Gx3Qt431LtKviJBoHXJ6IFV rXvB4AJUzIEEmQCU1ED6IK0 4dp8ZhhftKoQB3xCHyMoqZR 5I2SZ1F OPq8Hy6UsQMnCyR1PBguEOG rjIhhSH3pqGVkHPprU3OaKI JrK9b8SMdoUxveUItngLgzk SQ6ACsI C9EeB5WbxQP4RCJPB2Ehl9R lbnQgLTIxMgovTGVhZGluZy XrJIWPX09yeKtuHFGpJWNmD RPVR2N9 M3bpAPVgNML6ZOe+PgplbmR cDgmUYUKyJV7qedw5OJeaSB maZJTiNu6mkJfzR9DprKsbD SAvVHJ1 CXW2iGVES4Ecb5BAc167KU6 AaalcdJ7WTh7JkWPeyVDsAX YsAdDYQ8inb0WEbGNeYALhB OmbVA3j m9EulevwT3kselFqo7sDdcD gGMnqMkjaMe2saKFkp8AdfJ C1t7ExLyRwZRFVX8bwTWIjd yBbIDI3 RZVdPLMsFJSoGRc7FFCfBNO gMCAwIDAgMCAyNzggMzMzCj Z3VGTfJwtyOYL9WNT4RnW6S TYgNTU2 ATP5PsO7DSVoCDI9UWS9VlU 3KMMhLBJ0TYJ9OQRfUSP4KB WuVvE1ERH4TTWzCWD9MpepN mI3KGad MqN4NwGqDvG1URTsMRTzJDo kLfIsZBUrLwL3GOX5DyV4Zx OVZxNvOPx6ZYL9HmtkWbq1G DcyMiA2 NufcLiFjGQreZiZfNTw5VRQ dJKY0DpQjQJTgXWHdVpCzIZ KzZKB8BkV7BTUvMOIkSMH6S eZ9DKLm Jkz0OMT9LrY5VEZhDmXnOKC aWVRhOHKjSrZ9AjEBICD7BX D0GyP9VCMnCAG6HCZsLqW1D DAgMjc4 YVU3KtN6SYQgIhYuRCWxYST 2SKFlUg2FTX6jv4QsTrpnWY LlObhSYHaVP5R9yNUeK5Ris nREZXNj bthfuW1oVy9Tf467MoCgOKU hFBYkQDocWo6bTD1FTs8RnH XzcjNgYqdpVr5ctVJHz3jbK q03Xpxl TYN8TzZrJLAmMFDuAUOcQy0 DdRIuhN8nL4mraGqjGxp1Ox 9CpNSvUMZ3PDinU8MllPByB pbTP7s6 QQmgZ0FsC5msTLACM0LhfTa juVxttGD8OBIJY9rOSPohdR HjDVU7Lf7Pm8UcpsFhCJX9S b2TLWTa HG13ND5dAQWDV7cxIRSsvqm tBMLoGj2IBEfPcSA3kHEzBR AaOq7OrblEsMA1qRL4GqrHI e9XSM2c t6ZbKgDwCRSwj4EgFgj3Bx1 UmFJgYG9Sj066Uj1QlNK1hS EmMZ0SacOwTIguVVsbSrPaX UZvbnQg Z7RffEQxMHPszTMWFJtiCuw xj2NXhVSqMNYpLc4BKQK5T3 bzrnPnOmFBC8TbB45epU3zS M2NzY9Z vcJxKU3hd3BthetBW6OeiiY IBYTlkqgufA9gSWzfEDLEXx 4QwJO9iFCxZcZpDrtfEFHpU JM7FfPd IDAgMCAwIDAgMCAwIDAgMCA zMzMKMCAwIDAgMCAwIDAgMC AwIDAgMCAwIDAgMzMzIDAgM CAwCjAg MZZmEPacJlU0YuFuQbElHUs bLpD7LlzfRnRyTMs6EUP2Fu EjSuf2MSYiYZGxGRtlCmc3V jIgNzc4 TOX2ByTwHJlfZvF4TxhvRpC bTRfuYlPhIERkINY0UeskJG DcYTYkAMrxWWWqYCM8NYFuH jExIDU1 ZeS8VLKjJXO4ZEFmSzUrKOY pXVBdRxabHRR7MLNxEva7YW z9PZw1RHZfJjGrNSYqNTKuN IF5SFY9 RKOwQpEtETAhPPY5PJBbYKZ 0EDF3Ae0+PgplbmRvYmoKMT AxROZvZutDSYqON1txzoa0k DEgNTAx EhztTYQyT1OuRVO1HqXJI8B xiBNcxbNdU5ChXEXaIREox1 RlXQo+DwljfOHjFI4GrKtKC I8aMHZA P/e+j/r1z2ZHj5aAjlpkAyi NPQBvyFgGEYhCL94UO6ENVG svDBIkAlIQyoQCgpvQxhJst QIBRQGJ gsNlDGXyXbKBnaP7iKCDVt4 qBMgusthRSvxBo79ORzEpPk /oTO07+q2y1mCGT/ecc+/bj wABADu0 zBH83rj4+ks5hw+a9lcAXz1 e3fLy9thqjkDdHYMQOb1tTn /0N7/LzXku1ykH3eTCUIC/e c+F6Tg/ uckKo4LEuWU3MdTaPx1BGw4 Er92glGhAZQq929JuaUU6TV 7LALRVJEK3z30Lv11HnobKx cP90Esq Z51sf3xyZgENOM/V0HzPW+O XCM0TEDVp06l4vov6rsllrP WIL7DEQAsD5CAj05b9wSXRE R20W/[place] QuZUYKT8qsFWUqgf9LwlWC+ 38LuaNR4mDKRIk/Qj3Z4GJK m0ThNeazinePA/C9Qk4B7iA c4SG3eU aIx1hnpSmt9KL+o8xM8xRud gp9BnA+xCWy+e04ug3C6ciz tkPEor+ZV77vaLEj5+xlmO3 h2Y78/g Q/mqVQJLQWoGuo967QgaQqN qIF1mFYlgRSnpEo1dRFoUAe gHH0ePl8MOmKLC2vKiMR9R2 IDoY57V 02hLDoKQ5QSIUAD08amvVo4 oZl1RZeKsq9UQUPmIBkqLcT VqEAT3Of4QbVcYg49eiiMJu +VLynLl AEqfOp/c6TEAnTMWsdSIPow Thln4SpGxNH7PrqNSaGPZbM 38HuyDTtgPhyECJ+SbpC47J xfgGnYn OuWIoS1SkTXEYTteqlftwO5 81rL7qZTxk5eN/N0h89S2cE eUV4RxchzNa4tT1jz0Plmat Ug/o19I TLqyAZEaiWp2VI6B4xHvmds kTnm//LD6lHTZ6+xKjKnx5s k5dvRsL2aIyaJa1U06yu4rz GBdWVhX LBrUixNhEKhkB7XaKLluNVy BMCrlR11QeoQoELfNtVm1wS iSPOvKPzHLTS0NAVd5FOleP CLHsZb3 SO3s32ykdV/Y91EpbdnNbm9 h+yfqYQjSYsdL2idwS/RFPJ Eh6EP5cU1YAp/Gm5wczLJmF UmjJZ/k I5kcRBWWLVehBvp7oE8pc50 Llu+Si+X58n1Y+4o7vwoGw8 IqkpKhTFWmozQqDymblFZlL 57ofqVf alp8Gn5weNED5co+iGj3CC0 LnkuhJ0FelC8mp3dRC7yQqU vsU+2szPTgjS3FINeRhSG21 tpo8kN0 3W/Q+8XpBHUr1IL1GJUud50 sMMwFuuiWpOxLbo3r21Nxnu /XJBtUymdhgbQImpRaKYpdh kNktbyZ tMk10m14ODwLFmqalM65sKX oM0Q/6dPSEbaehdinmOkVaZ tQbCpZITzlOFSd7pL1qkPJ1 1mPyU2H BgPxaZg1MArWsaCLm0uNyZH ktzuit6lsdIVT9jK8ugMfT+ 6gU+xPlqIEMGExHG2v1Ruqu IgATzT4 /WaezSpyNvT57OGtCkgWVrs eQrS6SZogiWAOBnF0dHG9on BNAzxTHjb0qGTLXeAVbsoXT QpSBcmC JEHEcw/gT6rvlQ0srcy6V/E x7gTGt9zskWLWQvQOvK0FqV x5jCxOOdAlBmwK25WBnavLV UHPCzoo 7IyAsvS9Ow2PsWfwOpFCcQN ICgKPB/lDxPuIPsRbiLOIM4 jZFSeC6WhKDW6YEsNHM+rLc hNtibb8 3j9r7sPH4ddb0i6pxGlyX9a df1m4GkhqxAlGe/vPpA5Q3j NsrDZG (more content not included)... [facility] Please click on link to see report pdfCD:[id number] YIOoAcx5ABStKmVF3hobq2Z YjpQYYmATFhEQTlALQBOd3W R2coimwbBEPfJbCyJHGf YNYmGVfznfVsk4GhnOI6HAj zIr7UjlDyfN9gCGnYU749hU KokwSdL66bxP9sTMCqb50jU n5ZckPh kZhdauUtoDAvPFJ7MzKrJdQ lVwYyZMB7HyOiDKEeKSUiKI o+GmoqmjKbOunZKJUlSJ5al hk4ZGcn EBngRNPtMt1jaSRip3QxpBK 2t5RVA9HyfqGEHA4zTC8Iqk dtuA0Ci2hfLDBztSjiWLSII 0ZsYWdz ZSZzQh6Wp253JvVbgWFbHOV 6ZKUsPqx8FTXwPWJqYXVyXH 3WH10ju7KahllCbEG4aHQoV umYF3N5 BR3OBRr7Mn5TiQTiOwS0ECb aFSRndIxbDI6vnISvVXKcId 1MVIJMPAodgYTdDxA5Rs9TE RCtP0d9 NLFoPLatNEQeKL17TXobVEk xGRDnO5SraVDrBdOfCt4QPJ AylJ4gBYE4VSjsBWV5G2kou GggMTMz RmduRJWwS5uihAwtDMm7Uz6 +IyMhOY7llnx9LAQww4JtCi y7Sa5LqYWqFK9Gd352Xv7Py LO1hECq ET0XmsIgXMenCIxbTvGtVLW yblFkC0SsmZKqXBQdyFTGoU OigUOFPEzySzysy3IZsDUvI QPrCc6C JDW3P7nqrfWcFsVQL2GoI25 bpA1fRD7SqL7BhqRwTA3qu3 BabsbHO4FolbILYFUmwkvfs I3qQEHg HNIBWv8SpBB4wWUdFjDrWzq gMCAwIDAgMCAwIDAgMCAwID AgMCAwIDAgMzMzCjAgMCAwI DAgMCAw IDAgMCAwIDAgMCAwIDMzMyA wIDAgMAowIDAgMCAwIDAgMC T4GjHtIrG8GCCpMALkRBS4G CAwIDAg PUS4UhCRCJDkZDS4IpJjVTW gMCAwIDAgMCAwIDAgMCAwID JeBLByXzBgKWVxOCA1PhGvN QC2OtI4 GTHyOLE1JGXdVoC0MEVsUIJ eUrxqJKOwGOIxIRh4TvQyKU M2LFNfEhZnZBEmEww0LLS9H iAzMzMg WVGgBLFuHWX3QYB0Es1+Pgp mxvCsAvbEJfExAW1bjcu4KP waQVlzXHLzVj2rcRCmr2Lkz ED1c4CS V2OjlrBEEL4jIV6MxdlvfV9 Lx5fsTKYAB9UxLFjdSTUoIk 1Qu276NvTkbIKzNPVtAURwD dm6LMOr RJAtYYB3Es5ZZ55fq1Dlgwp NsKP4uAVrQyePI3A3YC5CAQ a3Ya3WzSAnQoM5GYwiDAGan WohYG1j lWTuIQetH4KiWZEsD0h4IQo tSyonBVyncDurqIE3CTqZX6 XzP2YifLY3SSIPV3Rme0Huw nQgLTIx ObkaWRFmGXjnHiTdWPDGT81 dnVqjAWHrCMGrQDVCQ7S3G7 qaLZHgWJK8PCq+PgplbmRvY moKOCAw MV2upys4KOpsJFkwBDUsQq8 nmAayG2BkdMcsUXTbTFV7NJ J5cNNIF5Eet2EYx427PQ2Bh cidpB0N j3wdOZRXR5BdtzE8Z6rtxcM zMgovTGFzdENoYXIgMTIxCi 2VnnDqMNvaUvMuF5drIX7hb XQeE94t gY1bKn1Gi039SDZkT4UoqOS snyQ7RVLqPnpxE4urfHnhRQ hbXjv3MHHqXHK7PPWyRPUwU DAgMCAw IDAgMCAwIDAgMAoyNzggMjc 6GEL8MtS5CAVzSIK8NLH1Mm M4OUObRMA5IZE9ZpI4WIAmO BK1ZPW7 NiAzMzMgMCAwIDAKMCAwIDA zNbPcFWyvJzD5IcJpLcKoUX X2BgD0MBAlHfo9SIsrWlOuJ zggMCA3 QkMdSsPxGEfuNjx6QjGzTbv 6PKT7WkQaUPqeDkL7AurhEr VaUPfnEdKfGSo2HUNxVEOyT CAwIDAg FHeqFHUwPVB2QQEdHjMxQOT 3LeI7SDVqORN9QMSdMvEkNK TeQUBbMjesPIJ3QDXiQlq0E Og4DDa9 SZUqCoPyUVGhOHK4DSKfTfw 8QDF8HyLgJbHkOvYiWBJ5Ty D8ArhlJKP4TQI7Zm7+Pgplb mRvYmoK BPFzCL4wnqt4BJluRTmjTSU nVz2dsELyq9ZtdKI0b0UYJ7 TupaUHUW5fNE5HsrxvkN3RD l9RrVNt mkMnDovuVj1kuUUGz9cvNh0 2NjUgLTMyNSAyMDAwIDEwND TwKr4FeDBtlX9sF7mxsNoxG zm1Wi1T fMZyJUB3EIhsM7NcwWXdPre XS5x8KXypA2EiC4piTIOZS7 YgsKfytJyivDQ1HNNQF9rZA WlnaHQg UAL4Ra5Sr4JhpkEdVGM4Iv5 ACVWoRW38EC6wJHMKN7kxBW OpewdvWSLiRc5WSAlKqAT6k CAyMDAw Up7HpxlCtTZ1jGY2WQKCOq7 YYE0nq6BbHrMcEYMpi5CkIe c5Yd6PgANmIZ5Cx614Iy8To RA0hAXb XE2RmnCfNIsvZFgqRcGaGMV ogzRoK5XcaIEqRIPBU8Vawq E7R3zbyoOtWuxrVUPvdUGfA XIgMTIy Xi3KalCjSKsaVdOjP6bdEP4 mlHEnD37bpS6aAw8Un326LP LcT9QsiLAzbeX2OIXyNgfdA 2lkdGhz UKidSwr4GCZjBPNyYMEnFUl 7CYFsALAmVQZaCVWnNEM2LZ LxBkVHEtk1MXG3XZR0GGZdV RR0LKY4 AwT9KKEhEBN7MXC3OiH1BWX eNBM8MGJgRIM9BIF9JWBzVQ QhVDkgZOSpACC4RvdjIqD7N DcyMiA3 DqJwPtU3ALOhWDGgNLDdEyc 3NKPwVXZbSVjsEld1QdNeWU V9RlgwGBB4EwEkDwP5HXDtN XA0ReHx OMI5WNQpGSBrZVSoJLNbKJD DMDXdZTYkRRU4JYI9YtX1YI FbHWC4ZMS1IcHtZbcgCFG2V UO6FgGd HeVySLO5HAPiNgPhUJrbJxw 6KLGaKWU9SPN9PjSpANDbSt J8OVYjXmy8CAM9HgM7QPCgL zIyIDUw JDF6IFPhWRGwEX0+CmVuZG9 ailuqRMOmON2inta6NOguSK QrM0MzFMV1LJQqKq8ICP1tu GggMjg0 MAovRmlsdGVyIFsvRmxhdGV EZWNvZGVdCj4+UaI4grQfeH h41gGBxZTJ3QY/825E7BWn6 0nKWnjL SvPFLcOQDEGJ4uNWFrdR1CI 6lQDdrGRbRUhTjSRCSHdNy9 EsZjpHLFEZ0NjQUklRCBvQp zVB3K2V i/0To5ZKVadPPrnx/b33kgy hI9M/+rn7rAcz/g5367ozci b7kemvdXWZu4fBAS84/Trtx vdFc0V6 QiTlNTTfs+jRn5FVDlbyZtM 6FF6eW64G/+NuopjLROxyY3 111uU0T/KoV1g1rqdJNy9Hp P9Z9HD5 rSRM1cK6t0fVXYEtTs0sCb6 yvNf12cgRoT/h/rNrmnx2X0 fKU+B/Cf5a8+m288NVfrwly Pma+ub5 f380ROiFV3oN/23X+W+1TIP UMj/wyWuz4PbomdwBDZ0pED VTO++yfSgHMDAqp0+lHsqmN ZY+hx7C NiA1aA9eaa7LJYuVpXtlJ4B 5sNWCmRWjnbVZ/SJwogqr6O 5+mp+7nHXLe4a1lCI5PQ2Lu /G20It0 uI6Ub5I0B0igeY38I9KwzZW usMmQVvYJ6+TZ2HNtcbKKZq 925Psr+pD+yhJZPguxk/CJ5 5utXOzV RrShTcObriGTLtcWxYNz1WQ O6xoKNkAQO/MdvIMb/LQQEP FoCdtaqhy1BVbygmRTzotVy N+jhVi5 yn9naUvFpsjdTDoQt1KNsk0 vhSu4XP7iEB3ZJMcpDFFtBq btGDipyqW26sRpulpmbtZyt SONUmk6 lkKaaZbmASr34bJLQLa1YO5 5Ri0zGipMnbsGH+sT2hb6hP 7SFXQnFmLWNZPNYksgAcgat ojwQG3e c0Ny1EyOrU9dc1jN+3wCqra yDjZeNC8yZ/Jj/G3+Dv+Y9/ LP+PyWBG6xqRCqhWCLTGrAa 4G0vXLq IIgLG4hbCByehG7Dh0tg6CA rgQ9yORzJsljqGF/yinMqjU BcIhxifSrike9k2KJzHNTk9 yKQY/Qy pIc+N+bCYX8UFgpaIqnA5EU NrV6eHvkRwNMgUsl7st9JSb VqfKN0xGtzPyxB+8N8pbyAZ aSjol6M XyVfyJfwlfxx/gR/ir+AE9n FT/IP+UIC7Ko8CYVLOL3mGk ILu4BTTHGpIlVTW6BA5iDdX ejDvkWL i6b08zXprtN+UxtPZ8KAphe ZDtLPUm3jQdmC8lX9Teabug emYpoh5uc0tQYMxwpE++Qu+ EK1huUa JCsTIVOVacpCpUlZrxxWepV Q3TTGUnxYxjwsDt0uV+nV65 8dg1P7J+t4r0c2by3Ozxtuo IWXZj57 BAkvvslzBGH2rbR3TCw2K0u iOKhCPEtLhGXUJNUIUcolOs cUawcBO3PU2rZIaKStdUWX+ oQDUqo8 2+1hb2J3pFxBnplckGBczCv oPDevIohSEfHw9MIdQSI4Ss uj19OdzIvShuTJlHulIwi8z 2uZKJ67 A8jQk0XjTp1SOHHS4lDrdA6 2aW9oG41uZIvglRCJD31rDA O68QOIykFz96GyvkoTmlvek w8pHwZ6 OvUBNy2l4nHNi8a0eW09tjc jD4cNlCsCx3qRPf9N+TbNsW lEOtVOqt0RJxv6N/sMwYT0I vC21BKa BxUh3DDvIrzVAXFhI/YBe4E 7KObgTmyFbjmdC0FFz3u29S qnuJsv41A88gZq7LYRh164P dcmxSbJ Yx0Ioz4fK6R7iE9yUyUdpLP 9HFoVrOCuVw7Eb7AIFY7zsx Ij0TEz (more content not included)... [facility] Please click on link to see report pdfCD:[id number] DEMsXtt1XVZyXjYQ2dkql1J XvkABNxBMQbPCOoKIKAGy0F T6qrgilkDADrHeCpHRJn TZAfNVevvvSmn2QuyBP1VWq lPw2MpcLrsN8sFJwBK407dJ SrjfNfP82vzI3cAVGmt49iA c3JxlYt gYdngeIdpDOmPNB1MuZrPiX xMzExNDIxNTItMDUnMDAnKQ o+GkshccJvBfpBCSFwDY9db kh8BSbc AVmbPKXnQf8njYRqi3OvbBE 8n9SUY9CotbLJIF6pWV1Ttq ykiH6Hc8njUTCefUkfATZUU 0ZsYWdz IATuEp5Oj995DmQmsBPgGTJ 1GCDrFmd6JFNfRKJvFYAbNT 6IB84qm1AsvxnYyWG0iUSnP noSY4C8 FG7ZXQm0Vz8RmWGbJxZ9LYz kIJBzkJjnQT2uhCIgBCEdSf 6PTKKZSQwuzUCnNtG6Dj0OR HWpT2i9 TSCsJNxtMKCbLH28CNgcKSb qMZJzP2LwvQIvZoFmHe6JNK FsiP7mDEU3CTuhIKT9M9acj GggMTMz WfknFZTaP5txnDghTXv7Wc9 +GrHrUG4xfeu4YBIlz4MlEu b8Wk6FlDWyAC2Rg584Kj7Ku ON5vFFn GM1IduCyOSigFFyyTtGsKBS yvxUuK6IykJIjVSIvuTUBxJ LchFUOCDycQhaby0OIjYIkO JPkJy1P QYZ0G7broyMvQwVDE9NuG49 yzV1kBJ6OrN8YmvQgAF2to9 RhcwgQY2OskgLTMXQoaaalz I6bKNLp IEMWVx0HmKI9kTWkOiKdYnj gMCAwIDAgMCAwIDAgMCAwID AgMCAwIDAgMzMzCjAgMCAwI DAgMCAw IDAgMCAwIDAgMCAwIDAgMCA wIDAKMCAwIDAgMCAwIDAgNz UoTHN4ToSjWETzYCBcOepmH CAwIDAg ODMzCjAgMCAwIDAgMCAwIDA gMCAwIDAgMCAwIDAgMCAwID GDFXZdATUuRVF0AHOhIFY6P DYxMSA1 NTYgMzMzIDAgMCAyNzggMCA eZFR0ROB5ZXwTUpSfVJJrYO IwGLVkSuz3AQLuApOxSXDnD CAwIDAg HKA4MZ3+OeIxYR9ofqe5MPP cw2FgOsc2Qd3ZfBRhIW7Iu6 08UNOlN2AfrFLnsycvAo1ys T4akNGi X6GhfPRcRNVadUGMIYwwKfr gQ1CkPaASC0EqieTLPc32XO ipVdF4GI1cUpPgPfQuDSEmH RQ7FTdf UJgoi6ivS1etFTFdUAV0CRv dS5ZiyNejQcwIY8C5UX4WAI k5Zk1NiCVvwKHXvvwkKFHkF e0IZSNW LWsahZHgPnT8Zc8MKKVcJ0l 7DEUjGCnqMICeGG97JJjeGI iiPEGfS1CsyPHdLbJsTy2YS RXteR3p WCM4ZFjhJIP9I6hxmLwlVoA gJTksDZZuK0hxrUqvIXa0Jz 4+RnZwLU0vsim8UENtj1RyK cw2Rb6F vAYmOU4Eq686Bu8RiWM3hRQ jBS0CzsWeWHguOGywFjUaOL MwrlMdG8EuxWRvGGJfpVCFH AovRmly x8XJsZLvEVWmWw8YGAK9Y7n lnmZaSqOQI8BkH53qmP2vIB 2KrT5UfkNmOF6bm5DbdjhAI 0ZvbnRE FVWfuqzjwG0wPEwoKPNQTv3 SbEJ9yRJhHfYtOjrmGLCnMB P4QtAtOUFyYRLzWASxNBSaJ DAgMjc4 ZLQxWkmpHbryEkj2SVR8NsV 0KZRwCGP8VSQ0YxV8RFZrMH J8FTBxSIC5TEC0BwL0CCYoL zMzIDAg ATMhPrYgTTZmSCvcPxN8AiS pFgMfVKwgRaK2MifjJOS8Sb ycQbBcSDW1UANjPDztNoD3E TEgODMz PewhUnN8JeebMiK1ZIs8YIP 7AjGjEhP3GONzXVV4PgUvPn E1LDf0OFNfEKPzFdTqIVUpA CAwCjAg TMUbQEU1PdF0GICxDUJ9QPF gREU5DMNhHbNmDUOiQNG9DR JpDef9EGVrDBJ2WAY1YLR8D DkKNjEx ZQYbRXK4BLUiCmApDTX0TFB 6FNVzCnUlCIHkRUC1CEFnYi e5YRU5PjE0YLXoSHQmFS2+C hSwFU4i ifn9UKYtl0YnIse0Gk0ZmYE bKV4Ay219RWVyE1UeqWMtsd kqOa6vlM3zhQLrU5QtaZcws mktSXRh hAzoCd5UhGQwzwTxMefpHd8 drIIIh8zfLe20AwJiQKR1Qe GxZjBaDASuRpZzDy9TyRSgr J7vH6qs zUltOwA0Rs6JbKEcZZN3RCn oP7PhpVKtDOKNA7g6AXjmM9 NlO0gaOH5bUZsjY1QsXEBsW 2d8GWBw FOkuMFourMzxzGE2JnMFN0F xE3KfoGU8PUWII7Mxz6Yjkm HzJAO7QZekKCJgQXaqQwKsJ wKFN22x eAclZCInFRNcDprWR0T5P0d pZHRoIDUyMQo+PgplbmRvYm lTFQLeQRGnAyrCYCwEZ6J2f EGxN4Wt ukOBE4U0IyJ3wOJyG0McvHI IhMHhJc7EVJTaVh3tsFVgR0 ThwSLbdM4SfEVtsSIIG0Xxp gE2K4id ciAzMgovTGFzdENoYXIgMTI aCn1UurAnUFvmCiVaD3tyZL 4wkTBqM96lzX4dOn9Je346O TJeV7An jVCtaxP8YLZdDegeS3agnLu aEGeoLaF2FAEeVMBeYGQcXD AwIDAgMzAzIDMwMyAwIDAgM CAwCjAg Kfk9STMrJKOmTMOqXEKpTXE gMCAwIDAgMCAwIDAgMAowID PgXFW9AgqjKBZ6DbAdIcH7L DAgNDU5 CRYwJHX7KeJcWdJyVKOnVMA 3DoVcQLQ5ViL5BIV1WGQcHN S5COXtCKAeGKF0FpF6UYhuV jQyIDAg MCAwIDAgMCAwIDAgMAowIDA lJOT3LPAeFXE7WCVpMyF5LR WyDBk5FOPkSZS8YAYiFGP7N DIyOSAw TNIrYfH4TTg8RCk3GXTyPQY iSSUzQMAdSSV0YpQlZEekMv S1FQMmDRM7XHMcRDX7QeFpP DQ3XT4+ DsInHV8syiwuKNQqKO4tpph 7YPqtRExjHMRuCy9rzQUlx2 TdrKU8f7NEU6VaqyEVML5cO N7NUHsa MvKrLBUeuLRJfSZkwCCWH8Z vRUzuYGThUd1Oj526TaRqgL VwVDU2LVEuQjD0XGEqUxNlW OWyYD2W I80mz7PsjvzWnLV2gVEwGoI SR2F2MW2RDGa1Lo2YtDOpOq X7LCicHXDmqMdmZU5gkTCwS VXpHu7S UNEIKKcvqHTvNeA5Gm1YFDU hW0b5ZSP0TTdyRCYeGY69NG e2RvzvSHGnL1QopNOdAyS9L z4BYMMc mV0oNZOzOFpbTPY7U2lffSv wEREwFYyqTIBlR2xfdKyxKG M3Cj4+ItXsZF4cwxyhHjOjF D7sifs4 PUrvXGrvSYTiNu5vwJduQ7S ouSpgGRKqZTW2SHP5wFIDI2 Adx9QNr883BC5LKKwuWpNaQ UJvbGRJ vHTriZNSQ9JmkjY2P4lkgyY zMgovTGFzdENoYXIgMTIxCi 1YqhXfEGipYeFwX6dtEH6jp DCvL18x hZ2xKa9Fe648FCNeG7CbtFB iqkCqBUOtVGEZG3neCKOsik BbIDIyNiAwIDAgMCAwIDAgM CAwIDAg MCAwIDAgMCAwCjAgMCAwIDA gMCAwIDAgMCAwIDAgMCAwID P6CzVgKTHzXFeeGSWkHWG3K DYgMCAw XJSrLQL1BUtdESZyRNOpDCL jPSDbMBAvDBp7YNikOLLyJH AwIDAgMCAwIDAgMCAwIDAgM CAwIDAg MCAwCjAgMCAwIDUyOCAwIDQ lUuR0CpeoAGolIZJpFPEwZC S2ErGsVAJnXbQ3MYGDIJF0A DUyNyAw JCTpYqVyNPE1CIAjAQeuWUY 8WtjtKHGsBFS8CB4+Pgplbm RvYmoKMTMgMCBvYmoKPDwKL 8V6wEUh I4AureLBAUBskmuqdK5rUv5 Hp971XmZmTVDlCKLnRIyDXB ovAypcR5EhBvDNS7BihkZBK o76RElc VmP3LH6fLcUdMpZyEUAvTKS zHGybYRqnh4vhY8ocVVGsQT I4IPnvA6SjgAaaXtaTU8F6R V6HVFp5 Yk7BpDRezGRYzczlIRWbSt1 GOUMAEXshnRRrRqP3Aj8SWX UsE9i0OJAbSCdpJQIfWB62B DkwNQov REMuB7GhbNTpFiNuIy1PWBU arE2iMNH0NUfeXNS6L2fteQ yxLbApYCyaJMKpN4ucoFegE DQxCj4+ ZtAlHZ8pzvacXWYkEI1fjgj 4HLqzPIsaBXLmDh1bfSjrM9 AxxYxgDHXjYUI3HSY6nIWML 1Geu6SM n959RS4GqnxbwI9XQt5PbRQ xhXTiYDNpUnSTS6wgs3ZEsB VgDTJtRzvwHR5aa0FmyolxV 1dpbkFu p2cPscWlSQkfQduaEy2ddRJ bt0WrbKI1u4KvBKEkXEZFYa 3HlVF0tEPnJqCjTyyyEGYzM DAgMCAw MYRzPKAbZOXnLMI9CRNfNXD nHlPOHig3OMB7GOO9ENCeVH O6AUP6TcC0AFEpRHO0KQF9G lL5NTKu AVA9GVArHBNpQnyjNHSyKOL GWQPtDGVkDxG3LUG8RhA5Ss OjXoLsOEG6VfF1FGRqIAJ6I jIgMjc4 IKVcTHWaSQjkCan0HoQqDDZ 0WzfiEPE5KbVyNzZ2KUBuRJ LcZOJzPGTfIHU9XdGlZCZrC CAwCjAg JJEqLNF1QtK7APRpKFRbIMH 2BuH4IKQpDji8UFH0CoA6QU MuHkTkUYTjMGOhQUMgWeD9O zMKNTU2 AMJ1UnG8AUYbGYP2WYIrRiG 8NYAcLft1VLF9UoL5OMCkYy IyIDUw (more content not included)... Normal [facility] Please click on link to see report pdfCD:[id number] LCIaRsi5RSGbIeYY9viea5D RzoSREqAEVrDEYkPFVYYf5K E4xwvchbFFNzXlQiLCDc EFKzSNxzfgOfo9VwjDG8YJd dWu4LfvYcoN5xAWdNN601mW SafnLeY59ziN9tXWYvk81hT n8QusXf cKnblcTiwDDrZHX0YuPaCbJ xMzExNDIxMzktMDUnMDAnKQ o+MfnewsWlOwiFULFeVZ2zf hc0APcp FIqqCVNpKy4haGNcz7LpxKQ 9g9ADK1BiacMXNY0lYE3Mwb wksO4Vg6urFEWchTmhXJYQA 0ZsYWdz CBWjFc8Dq827GlGfaJIfNVC 1MBXwKpp8DMGdRGHfGKZcKF 7CB02lc4MdudmCcTX4gPWqC iwXP6U7 GJ6MZTf1Oc1EcMWsKrX8COc vAFJazJqsRY9meSYmCBQeJl 3MFFBQMRdjlGVzTcL6Hb1HE SObU7z6 BPEzPQaeSRAcJI29GBlpYDj lYZNlT6DcoRFjRdVmKl4HIM FblP2mKFJ5UDdfNZI4A1eqm GggMTMz EakqSJTnR0fdaJamSUe1Hf6 +PzAbHU6ycxi1PJXju8BtYn e4Cs6YfWAmLP0Cf497Kk8Fp MS0zKMy KR0KbkDrDRseXGfbCrRgGAR cpwGsP8OekKCkKPWrfHPGfC AaxTQZJMyrNqqdq2VYuOBcQ YUjUm7W PPW1L3qvpnCuJnXQJ4MjF11 npB6lGV0NmM0AsuEbTW7sr4 TftuhDP0OyitWJKQRbfiaqk P9nZKMg OACWWa1LdSH3bFYrNbKzSxk gMCAwIDAgMCAwIDAgMCAwID AgMCAwIDAgMzMzCjAgMCAwI DAgMCAw IDAgMCAwIDAgMCAwIDAgMCA wIDAKMCAwIDAgMCAwIDcyMi AwIDAgNjExIDAgNzIyIDAgM CAwIDAg EFPpRcAiLDF9AefxWQF9DnW tBSE6WRAwPXZyAGNjJYZnKX OrKZIuCLPXFGZcFJTjGUN4P DYxMSA1 HYMmDtNwLXO0IgRsETWgZOV 0ZOTrYps0MLRbAUXrFwcfXD h7KwQpROC0CWXmWqXjZYFbK ku1RUQ7 NiAzMzMgNjExIDAgMCAwIDU 1Nl0+PgplbmRvYmoKNyAwIG 0zmmd3OVyzFWacLELqYp4go LEam4Ne wAP8l3SXF1PgahWJNM9mQO1 EmltynF2YUa0BqTHyxxSmPm uiIi9epGQSo6ssFi07KrDzQ TMyNSAy AWIkBBYqDUBtRb5IuMKgtW6 hQ6uiqUpvTea9Oy5JrDGrCP X4UTzcV3NrhXDsRmnAH4k7U QyfS5Qw I0chPJDJN6SueLivtPrfgBA 6YJKPF0uSHNteqKUjRRN2Eg 2Jj8QxydVcBUI2Go5MMWPgO O79DT7c VBXGP3hnTKOkojnbOJRbHz7 CGRqJmVA8qRRjFGDoIf1Vxj yEiCC2lBZ2CGWYQf5QWO6gh 2JqCjgg EVHpDmgNSMlXD3N7bZOoF4Q hfmUOM6W5PsL2uFLkP6GrvS UInVGcTr6AUAXrEt3euATtG XJpYWxN BOsqMvjcl4OFoVJsTOWfWl2 VJMR9I1nevbStKgSAA0MgT7 8ajR8mZI5OhB6FevLyAO0lx 2RpbmcK P2VtwqJGBZNnhujhtG4cJAf xKTQXJn9JqBB7uOReWbVjGr ggMCAwIDAgMCAwIDAgMCAwI DAgMCAw EJN8RCTqPzJOEan6ZXD7GRD 5SSSkHRF8NUK8YuA5VYPlPH G1NGC0OcA5HHBjUZL9SAS4H lZ8EGRr Osm9FLAgTTHuXgHmKAFzSUG 5MuJ9HgfuQfJkKYyiPtG3Jj uuNoUwKSm6WBV4PgNuQxj7P DAgNjY3 DUJ8AtN5UdYCNyAcTKg8DKV 4HjktYXN9JsFnBtU2GHLmSX O1QmMtZhY4LEg6UESpCTVaH CAwIDAg BJmhGGFvIEH4NWEvGKV2PPF hVYU8CICvADH6XBI6JLJ1HM PjWJV4EMPfCeXbGKNxLXYmM jIgODMz DvT3SgU1UJUsJBN2KXEaMxW hQTXbYHFmBsweXRY2JXKvCB K8GaWaGCY9UKEbBm5ALF6ss 2JqCjkg WDAaPqjGXUxPN2M0fANaW2K okgQBZKFmzofydT2lCq1Ir9 72WlHhSUToBGCoVSvrNo4sU J3MRi5G hLUahbNjEsqrYn7sbGRNw9w nDu90IfgmBVQ2CzNsOREkKN DcWCLpAd0XkALzhB3lT4uml GggMjc4 Ra7YiECbWAV6KAoeX3IsxHY jRmeLC8k5IYboE0YuZ4xmVF GAM6HvvSwhoJctpTA1EAJLX 1hIZWln eFTtBCA3Sn9Mz9FabgIvAAF 2Zp8KCMEhCS25ER7zTFHUP2 cpNSGuimusBLXqQy4KDBtWo LV3tPEi JPTyLz1BxxcDiWO0wCR5Yne OCs3JOV8fm7NzSxIzSURft5 XxBhm3Ws9LiVDfSW9Rm569N y1DvNR6 kKDtSD2UvaOiGTqfCXycSeK xFAAhlmKvI9EtuNPnCNSfhO KKPDcmGysnl4EBcDNxQDKnB a8XLCD2 K4oyxrBbWyACW9SmV70ovT7 lEG2PpM2PusFzME8au7Nvvu hQR3GcclVMQIDtjkjqiP3qM DkgMCBS Xh1QvRO9xMRrGxWxTedyMDV zHON2RjNuWJItHRLxSEOwPd AzMzMgMCAwIDAgMAoyNzggM CAwIDAg MCAwIDAgMCAwIDAgMCAwIDM qFbGhBILsBBouOPMdXDQ1Zf BsXoUjFGkaObD0CbPcWsV9E DYxMSA3 OwggLkNoEWJ1KQGaBLSqLhT iGOstGxx8CjZjVdi5DUO1Tw U9MoynCcRaTQL7YuE7ZGMeB CAwIDk0 NCAwIDAgNjExIDAgMCAwCjA aQPDzYJK0FkJ8NZNiEJM8WI MwLIG6JXIpZsHsUFYiOSG5Y TEgMjc4 BFGtDWE9UUF0YXW1BMdBLbE zZXZxOJT0ZGDxYANoOJqoCK Q3SELiJuJ8YFGvSSM3PVCeO ED9SXG3 Nl0+PgplbmRvYmoKMTEgMCB rEbgBLKfYL7scjow1hCZsQB TsEGvgYDXhL4VbFWC5YNUSJ 0ZpbHRl hrIaS8IeCBRdSCVjm0NmYIy +OhoskGGsYO6PkYatRT1lIN UVP/e+i46dXJWHpqo04AnFA CGSgIQP g8YpU5SuG2FV6FNJyebYhqN gCEJpKFBwE+xSoh0/gKCigE ReRhXKgAaIXX2mMYo0c3CwZ +PoWOKM BpHpK4P+5htTUnqO7K/9o9O +k9/73XvOeeeec+12p66QXF GhKcKYbRJcSdP3ntLuZLDWi CTi9O4G dde0vtSWcVNVFOa9VPT7+uO ltqpaoyfDqAS33FSYFn3orB d1u6APEG0LWFC8O3iLHcln2 bBizbon ZlAvZTvGPj7uM8sPTHFzxmx PFN+G/onCMzfgpAer1zGmEH +xhdPrTrqUI5kzYu0IGpVnl +5cily+ IBLm03/bceFfWiZCaliAb+a O5EdSdvJ+FyzTgzU6fkJyvs /yANIh8jV53M44kYiQ89PJf Ivpr+wg /uiOfPAq9XtuiABdOBiLoVw n9uemuX+ikDk3Pq/kZ/gZyz yFjahJP3a1h3JMcZhfA25Ca 9hp+Gyg 9jMnjAbfHYmgEp76bL9TsPE PWC+akTlY9yEKfts4Gx3d2R b6G8qMJdwRcBNASh1i4SLV4 zdkc2ZQ SpEK4zWFkGUxcC7ZzP3d7Dd PlmUq7D7b1ZhSaLujvpsB7n SlEVEYceyCBFRoRvsuzcPI1 fTIcFRb jnM9s9WjVGR6ufEns5YuM6P FZ/XGlOMBgbHFKqp8aaAuqs 8LUP7O0dyqJbbu7njDLW4px SofxqhE upC1KG6kmAtQWmlpi4yiqxQ +OkRROkm/KLvye5QLipX50b FmXVPYVLYQEoSsYpvYVsxHy 9Mgxa6H NxeB2Gbs+7NTAmV3AMT1H3y t/Bl+jL/Lf80/4T38S/61QI SWCHbIN6lAC9Ps9ukqVzbC7 5O84ppt xxKTDGumEuVk+ZW7XnWnBIO pciKjf6RWMg3uIJEJZurcLc tZgOt7AnkISgojdRrIthadk 3VXf1Qn kIHBSkyZyopZCVsACbJFLMR IiGQg8BOTA3ZZ0EX4WJM1VE mQXWR/YL8aN4mjwst0tHiI2 1fB5/GF fDl/ij/Nn+VfNXb76oR6Z10 JNfbwPtQYIyQKKcJowSeUQO UZm6K8otkuJfsbYKJ3zF7r5 e8etmiD qTO2ttK0sL+wklwSpHRpsjQ V3sV0WK1ERwK68MT6Gc2kl3 5ZipatG7d5u/vkTvkj+ZqSo qQqYyET wSdIQKTBHlzvIzwKl1Licxe RWS7Cpua3BMeACxxoih4cs4 /PI5IrvRM3hO2yoHOXW4834 5kd0ztD szjE5OX5iGyD0yx2TQVNUdr UV9EP5GwJJxKCTAxAYmvh3Z oJGB4aC7Q86RCPJvxCP6L5P N2eT/6M fRvNd0FBf9RbZAA25QAEQDX rStxSt1EusIiW1maae94Tfb tv6TXUClqbdI5h6HDzQCV71 87yMaxF pw78SbXXXyrYpqfd5Ad7gF3 9gXKjcpoZUQe2lYTQ7cVQDK uVJ4uAvqIpI4/naGkuaItF7 CmWf8r8 vZrVPl7a1ye59lfat27oXhU cDAdiYxs9FbWWBUWmlNoMGq i2NGOt1pzlx6DJ8DlTj1N1s HSI55Pq QAdwBDgIvAzsA/VIl0ULERw HPfj2Go1gu+9x3wTPU8q9hO UUywhfR1WBn8o393M9dxMeT Kz8EnN7 pg0DExT5cZsGs9KH7Q5nNCY AfDx8Jh0A6mB8errPdfFEmC gXW+st (more content not included)... Normal [facility] Blood Urea Nitrogenon 2022 Urea nitrogen [Mass/Vol] 30 mg/dL High 12-06 [facility] Comment on above: Performed By: #### C REMAY, BUN #### [facility] [address] [place] [address] [place] Creatinineon 04-07-2022 Creatinine [Mass/Vol] 1.21 mg/dL High 0.44-1.03 [facility] Comment on above: Performed By: #### C REAT, BUN #### [facility] [address] [place] [address] [place] Creatinine Clr Calc Pharmacy 46.76 [facility] Comment on above: Result Comment: PERF ORMED BY: [place] [address] PATHOLOGIST [employer] AIRAM ROMEO M.D. Performed By: #### C REAT, BUN #### [facility] [address] [place] [address] [place] Estimated GFR ( Laura 53 [facility] Comment on above: Result Comment: GFR estimated reference range: According to KDOQI guidelines, <60 ml/min/1.73m2 is sufficient to diagnose a patient with chronic kidney disease. Performed By: #### C REAT, BUN #### [facility] [address] [id number] [place] Estimated GFR (Non- Am 44 Normal [facility] Comment on above: Performed By: #### C REAT, BUN #### [facility] [address] [id number] [place] Creatinine and Glomerular fi ltration rate.predicted panel (S/P/Bld)Ordered By: Miguel Membreno on 04-07-2022 Creatinine [Mass/Vol] 1.21 mg/dL 0.44-1.03 [facility] Estimated glomerular filtrat ion rate (GFR) non- AmericanOrdered By: Miguel Membreno on 04-07-2022 GFR/1.73 sq M.predicted among non-blacks MDRD (S/P/Bld) [Vol rate/Area] 44 mL/Min [facility] No Panel InformationOrdered By: Miguel Membreno on 04-07-2022 Estimated GFR () 53 mL/Min [facility] Comment on above: GFR estimated refere nce range: According to KDOQI guidelines, <60 ml/min/1.73m2 is sufficient to diagnose a patient with chronic kidney disease. Pharmacy Creatinine Clearance (Chem 46.76 [facility] Serum or plasma urea nitroge n measurement (mass/volume)Ordered By: Miguel Membreno on 04-07-2022 Urea nitrogen [Mass/Vol] 30 mg/dL 12-06 [facility] CHEMISTRYOrdered By: Genaro Rivera on 03-31-2022 Albumin Elph (U) [Mass fraction] mg/dL Invalid Interpretation Code [facility] [place] Creatinine (U) [Mass/Vol] 95.7 mg/dL Invalid Interpretation Code [facility] [place] U Prot/Creat Ratio UT Invalid Interpretation Code 0.00 - 200.00 [facility] [place] CHEMISTRYOrdered By: SYSTEM SYSTEM on 03-31-2022 Albumin [Mass/Vol] 3.7 g/dL Normal 3.3 - 5.0 gm/dL [facility] Remisol Anion gap [Moles/Vol] 16 mmol/L Normal 6 - 16 mEq/L [facility] [place] Calcium [Mass/Vol] 8.8 mg/dL Low 8.9 - 11.1 mg/dL [facility] [place] [place] Chloride [Moles/Vol] 103 mmol/L Normal 101 - 111 mmol/L [facility] [place] CO2 [Moles/Vol] 25 mmol/L Normal 21 - 31 mmol/L [facility] [place] Creatinine [Mass/Vol] 1.4 mg/dL High 0.5 - 1.3 mg/dL [facility] [place] GFR/1.73 sq M.predicted among blacks MDRD (S/P/Bld) [Vol rate/Area] 45 mL/min/1.73 m2 Low >=59mL/min/1.73 m2 [facility] [place] Chem S GFR/1.73 sq M.predicted among non-blacks MDRD (S/P/Bld) [Vol rate/Area] 37 mL/min/1.73 m2 Low >=59mL/min/1.73 m2 [facility] [place] Chem S Glucose [Mass/Vol] 203 mg/dL High 55 - 199 mg/dL [facility] Remisol Magnesium [Mass/Vol] 2.1 mg/dL Normal 1.3 - 2.4 mg/dL [facility] [place] Phosphate [Mass/Vol] 4.7 mg/dL High 1.9 - 4.6 mg/dL [facility] [place] [place] Potassium [Moles/Vol] 3.8 mmol/L Normal 3.5 - 5.3 mmol/L [facility] Remisol Sodium [Moles/Vol] 140 mmol/L Normal 135 - 145 mmol/L [facility] Remisol Urea nitrogen [Mass/Vol] 29 mg/dL High 5 - 21 mg/dL [facility] Remisol Urea nitrogen/Creatinine [Mass ratio] 21 mg/mg High 10 - 20 [facility] Remisol HEMATOLOGYOrdered By: Chai Reid on 03-31-2022 Hematocrit (Bld) [Volume fraction] 39.5 % Normal 34.0 - 46.0 % [facility] HemeAutoSS Hemoglobin (Bld) [Mass/Vol] 12.6 g/dL Normal 12.0 - 16.0 gm/dL [facility] HemeAutoSS Reference Laboratory Testing Ordered By: Angelica Casas on 03-31-2022 Test Code 634841 Invalid Interpretation Code [facility] SendOutsSS Test Code 428612 Invalid Interpretation Code [facility] SendOutsSS Test Name MPO AB Invalid Interpretation Code [facility] SendOutsSS Test Name PR3 AB Invalid Interpretation Code [facility] URINALYSISOrdered By: Elizabeth Rosas on 03-31-2022 Bilirubin [...] AM) Normal Negative [facility] UA Auto SS [place].plasma/Lith ium.RBC (Bld) [Mass ratio] 0-3 /HPF Normal [...] [facility] UA Auto SS Urobilinogen Qn (U) [id number] {Donell'U}/dL Normal 0.0 - 1.0 EU/dL [facility] UA Auto SS WBC Auto Ql (U) Negative (03/31/22 7:43 AM) Normal Negative [facility] UA Auto SS WBC LM.HPF (Urine sed) [#/Area] 0-5 /HPF Normal 0-5/HPF [facility] UA Auto SS US ankle/arm indiceson 03-31 US ankle/arm indices [facility] [address] [address] Ultrasound Report Signed Patient: Evon Corcoran MR#: [id number] : 1950 Acct:[id number] Age/Sex: 71 / F ADM Date: 03/31/22 Loc: [facility] Room: Type: [facility] Attending Dr: Miguel Membreno MD Ordering [...] Miguel Membreno M.D.03/31/2022 3:38 PM Dictation Location: [place] [address] Tech: Christy Florian Transcribed By: PWS 03/31/22 153 Dictated By: Miguel Membreno MD 03/31/22 1537 Signed By: 03/31/22 1538 Normal [facility] CHEMISTRYOrdered By: Jenni Lazaro on 02-12-2022 HbA1c (Bld) [Mass fraction] 9.3 % High <=5.9% [facility] ChemAutoSS Office Visit (Cardiology)on 01-15-2022 Follow-up visit Diagnoses/Problems Assessed Atherosclerosis of chipewwa coronary artery of chipeww[place] heart without angina pectoris (414.01) (I25.10) Status [...] vein thrombosis (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 5. Diabetes, managed by endocrinology in [place]. A1c remains above target 6. Hypertension completely under control. 7. High-risk medication with Xarelto, so far well-tolerated. Takes baby aspirin twice weekly 8. Stage III chronic kidney disease to be monitored closely 9. Recent diagnosis of intermittent claudications and PAD followed by vascular surgery Dr. Daniel in [place], she is currently going through walking exercise program Fariha Guidry MD, [facility] Current Meds Medication NameInstruction amLODIPine Besylate 5 [...] and no (more content not included)... Normal Phan[facility] Tobacco Screening.on 022 Fall risk assessment a) No falls within the last year [facility] [employer] 600 DO Work Phone: Tobacco use status [facility] b) No [facility] [employer] 600 DO Work Phone: CHEMISTRYOrdered By: Lab ROP User on 01-06-2022 Glucose [Mass/Vol] 166 mg/dL High 55 - 99 mg/dL FTM C POC Subsection POC Device SN Invalid Interpretation Code [facility] POC Subsection POC User ID [id number] Invalid Interpretation Code [facility] POC Subsection POC Username ROSSY ZEPEDA Invalid Interpretation Code [facility] POC Subsection Glucose [Mass/Vol] 166 mg/dL High 55 - 99 mg/dL FTM C POC Subsection Comment on above: Result Comment: Rain evert Meter POC Device SN [id number] Invalid Interpretation Code [facility] POC Subsection POC User ID [id number] Invalid Interpretation Code [facility] POC Subsection POC Username ROXANA MILES Invalid Interpretation Code [facility] POC Subsection CHEMISTRYOrdered By: Lab ROP User on 01-01-2022 Glucose [Mass/Vol] 185 mg/dL High 55 - 99 mg/dL FTM C POC Subsection Comment on above: Result Comment: Rain evert Meter POC Device SN [id number] Invalid Interpretation Code [facility] POC Subsection POC User ID [id number] Invalid Interpretation Code [facility] POC Subsection POC [...] g/dL Normal 6.0 - 7.8 gm/dL [facility] Remisol Sodium [Moles/Vol] 138 mmol/L Normal 135 [...] a) No falls within the last year -[facility] 600 DO Work Phone: Heart Rate Regular [facility] 600 DO Work Phone: Office [...] Vital Signs Recorded: 28May2021 12:25PMRecorded: 28May2021 12:21PM [id number], LUE, Ccdmbcn495, RUE, Sitting Lqofowfoo30, LUE, Gdacyaq62, RUE, Sitting Heart Rate68, R Radial Pulse QualityRegular, R Radial Height5 ft 5 in Xfjfsm627 lb 3.2 oz BMI Phfziepdna67.98 kg/m2 BSA Calculated2 Fall Screeninga) No falls within the last year Signatures Electronically signed by : Fariha Guidry MD; May 28 2021 3:34PM EST (Author) Normal Phanfare Laboratory - Chemistry and C hemistry - challengeon 05-11-2021 Cholesterol [Mass/Vol] 96 mg/dL Normal <=129 [facility] [employer] DO Work Phone: Cholesterol in LDL [Mass/Vol] 39 mg/dL Normal 7-40 [facility] [employer] [facility] [employer] DO Work Phone: CO2 [Moles/Vol] 24 mmol/L Normal 21-31 [facility] feliz [facility] DO Work Phone: Glucose [Mass/Vol] 217 mg/dL above high threshold 55-199 [facility] feliz [facility] DO Work Phone: Comment on above: If this glucose resu lt represents a fasting glucose, interpretation should refer to the following reference range: 55-99 mg/dL Laboratory - Hematology and Cell countson 05-11-2021 Erythrocyte distribution width (RBC) [Ratio] 13.2 % Normal 10.9-14.2 [facility] [employer] [facility] [employer] DO Work Phone: Hematocrit (Bld) [Volume fraction] 39.5 % Normal 34.0-46.0 [facility] [employer] [facility] [employer] DO Work Phone: Platelet mean volume (Bld) [Entitic vol] 11.0 fL above high threshold 6.4-10.8 [facility] [employer] 250 DO Work Phone: No Panel Informationon 05-11 14 {mEq/L} Normal 6-16 [facility] [employer] 250 DO Work Phone: 102 mmol/L Normal 101-111 [facility] [employer] 250 DO Work Phone: 4.2 mmol/L Normal 3.5-5.3 [facility] [employer] 250 DO Work Phone: 136 mmol/L Normal 135-145 [facility] [employer] fel[employer] 250 DO Work Phone: 8.9 mg/dL Normal 8.9-11.1 [facility] [employer] fel[employer] 250 DO Work Phone: 25 {No_Units} above high threshold 10-20 [facility] [employer] fel[employer] 250 DO Work Phone: 1.0 mg/dL Normal 0.5-1.3 [facility] 250 DO Work Phone: 25 mg/dL above high threshold 5-21 [facility] [employer] fel[employer] 250 DO Work Phone: >60 Normal >=59 [facility] [employer] feliz 250 DO Work Phone: Comment on above: eGFR is race adjuste d. AA=. 55 {mL/min/1.73_m2} below low threshold >=59 [facility] [employer] 250 DO Work Phone: Comment on above: Chronic kidney disea se could be indicated at eGFR's of less than 60 mL/min/1.73m2. Kidney failure is indicated at less than 15 mL/min/1.73m2. 54 {Int._Unit/L} above high threshold 6-46 [facility] [employer] 250 DO Work Phone: 67 {Int._Unit/L} above high threshold 5-43 [facility] [employer] 250 DO Work Phone: 197 mg/dL above high threshold <=149 [facility] [employer] 250 DO Work Phone: 49 mg/dL [facility] 250 DO Work Phone: Comment on above: HDL > or equal to 60 mg/dL: Low cardiovascular riskHDL < 40 mg/dL : High cardiovascular risk 193 mg/dL Normal 120-200 [facility] [employer] 250 DO Work Phone: 229.0 {E9/L} Normal 150.0-500.0 [facility] [employer] 250 DO Work Phone: Comment on above: Slide reviewed by BR Platelet count verified using smear estimate. 85.4 fL Normal 80.0-100.0 [facility] 250 DO Work Phone: 33.5 {gm/dL} Normal 31.4-36.0 [facility] [employer] 250 DO Work Phone: 28.7 pg Normal 27.0-34.0 [facility] 250 DO Work Phone: 13.2 {gm/dL} Normal 12.0-16.0 [facility] 250 DO Work Phone: 4.6 {E12/L} Normal 4.3-5.9 [facility] 250 DO Work Phone: 6.7 {E9/L} Normal 4.0-11.0 [facility] 250 DO Work Phone: Office Visit (Cardiology)on 05-08-2021 Follow-up visit Diagnoses/Problems Assessed Atherosclerosis of chipewwa coronary artery of chipewwa heart without angina pectoris (414.01) (I25.10) Chronic kidney disease, stage 3 (585.3) (N18.30) Deep vein thrombosis (453.40) (I82.409) Essential hypertension (401.9) (I10) High risk medication use (V58.69) (Z79.899) Hyperlipidemia (272.4) (E78.5) Status post coronary angioplasty (V45.82) (Z98.61) Never a smoker Class 1 obesity with body mass index (BMI) of 34.0 to 34.9 in adult (278.00,V85.34) (E66.9,Z68.34) Orders Atherosclerosis of chipewwa coronary artery of chipewwa heart without angina pectoris Renew: Aspirin EC 81 MG Oral Tablet Delayed Release; TAKE ONE TABLET THURSDAY AND THURSDAY Renew: Losartan Potassium 50 MG Oral Tablet; TAKE 1 TABLET TWICE DAILY Atherosclerosis of chipewwa coronary artery of chipewwa heart without angina pectoris, Chronic kidney disease, stage 3, High risk medication use Basic Metabolic Panel; Status:Active - Retrospective Authorization; Requested for:[id number]; Complete Blood Count; Status:Active - Retrospective Authorization; Requested for:[id number]; Atherosclerosis of chipewwa coronary artery of ch[place]ww[place] heart without angina pectoris, Essential hypertension Renew: Metoprolol Succinate ER 50 MG Oral Tablet Extended Release 24 Hour; TAKE 1 TABLET Daily Atherosclerosis of chipewwa coronary artery of ch[place]ww[place] heart without angina pectoris, Hyperlipidemia ALT - Alanine Aminotransferase, Serum; Status:Active - Retrospective Authorization; Requested for:[id number]; AST; Status:Active - Retrospective Authorization; Requested for:[id number]; Lipid Panel; Status:Active - Retrospective Authorization; Requested for:[id number]; Class 1 obesity with body mass index (BMI) of 34.0 to 34.9 in adult Healthy Weight Tips; Status:Complete - Retrospective Authorization; Done: [id number] Deep vein thrombosis Start: Xarelto 10 MG Oral Tablet; Take 1 tablet daily Essential hypertension Start: amLODIPine Besylate 5 MG Oral Tablet (Norvasc); TAKE 1 TABLET DAILY SocHx: Never a smoker Tobacco Use Screening; Status:Complete; Done: [id number] Unlinked Stop: Xarelto 20 MG Oral Tablet [...] to be monitored closely Fariha Guidry MD, [facility] Surgical History Problems History of Angioplasty History of Cholecystectomy History of Colonoscopy History of Hysterectomy Past Medical History Problems History of angina pectoris (V12. (more content not included)... Normal Phanfare Tobacco Screening.on 022 Adult depression screening assessment No [facility] [employer] 250 DO Work Phone: Fall risk assessment a) No falls within the last year [facility] [employer] fel[employer] 250 DO Work Phone: Tobacco use status [facility] b) No [facility] [employer] fel[employer] 250 DO Work Phone: Vital Signs Date Time Vital Sign Value Performing Clinician Facility 04-10-2023 09:19-0500 Body temperature 98.42 [degF] [facility] 04-10-2023 09:19-0500 Diastolic blood pressure 68 mm[Hg] [facility] 04-10-2023 09:19-0500 Heart rate 82 /min [facility] 04-10-2023 09:19-0500 Respiratory rate 16 /min [facility] 04-10-2023 09:19-0500 SaO2% (BldA) [Mass fraction] 97 % [facility] 04-10-2023 09:19-0500 Systolic blood pressure 168 mm[Hg] [facility] 03-20-2023 09:00-0500 Blood Pressure Location Christopher GLOLE [facility] 03-20-2023 09:00-0500 Body temperature 98.42 [degF] Christopher KAPLE [facility] 03-20-2023 09:00-0500 Diastolic blood pressure 80 mm[Hg] Christopher KAPLE [facility] 03-20-2023 09:00-0500 Heart rate 70 /min Christopher KAPLE [facility] 03-20-2023 09:00-0500 Respiratory rate 16 /min Christopher KAPLE [facility] 03-20-2023 09:00-0500 SaO2% (BldA) [Mass fraction] 99 % Christopher RUSSELL [facility] 03-20-2023 09:00-0500 Systolic blood pressure 132 mm[Hg] Christopher RUSSELL [facility] 03-04-2023 09:09-0500 Heart rate 80 /min Nicola Tapia [facility] 03-04-2023 09:09-0500 SaO2% (BldA) [Mass fraction] 99 % Nicola Tapia [facility] 03-04-2023 09:09-0500 Diastolic blood pressure 67 mm[Hg] Nicola Tapia [facility] 03-04-2023 09:09-0500 Mean blood pressure 91 mm[Hg] Nicola Tapia [facility] 03-04-2023 09:09-0500 Systolic blood pressure 138 mm[Hg] Nicola Tapia [facility] 03-04-2023 09:09-0500 Respiratory rate 16 /min Nicola Tapia [facility] 03-04-2023 09:04-0500 Diastolic blood pressure 96 mm[Hg] Nicola Tapia [facility] 03-04-2023 09:04-0500 Heart rate 84 /min Nicola Tapia [facility] 03-04-2023 09:04-0500 SaO2% (BldA) [Mass fraction] 98 % Nicola Tapia [facility] 03-04-2023 09:04-0500 Systolic blood pressure 165 mm[Hg] Nicola Tapia [facility] 03-04-2023 08:12-0500 Heart rate 82 /min Nicola Tapia [facility] 03-04-2023 08:12-0500 SaO2% (BldA) [Mass fraction] 97 % Nicola Tapia [facility] 03-04-2023 08:12-0500 Diastolic blood pressure 75 mm[Hg] Nicola Tapia [facility] 03-04-2023 08:12-0500 Mean blood pressure 103 mm[Hg] Nicola Tapia [facility] 03-04-2023 08:12-0500 Systolic blood pressure 159 mm[Hg] Nicola Tapia [facility] 03-04-2023 08:12-0500 Body temperature 98.42 [degF] Nicola Tapia [facility] 03-04-2023 08:11-0500 Respiratory rate 14 /min Nicola Tapia [facility] 03-03-2023 11:45-0500 Body height 165.1 cm Miguel Membreno Other [employer] Other 03-03-2023 11:45-0500 Body mass index (BMI) [Ratio] 33.28 kg/m2 Miguel Membreno Other [employer] Other 03-03-2023 11:45-0500 Body temperature 97.8 [degF] Miguel Membreno Other [employer] Other 03-03-2023 11:45-0500 Body weight 90.72 kg Miguel Membreno Other [employer] Other 03-03-2023 11:45-0500 Diastolic blood pressure 72 mm[Hg] Miguel Membreno Other [employer] Other 03-03-2023 11:45-0500 SaO2% (BldA) [Mass fraction] 96 % Miguel Membreno Other [facility] [employer] Other 03-03-2023 11:45-0500 Systolic blood pressure 124 mm[Hg] Miguel Membreno Other [facility] [employer] Other 02-18-2023 13:40-0500 Diastolic blood pressure 70 mm[Hg] DO Christopher Kaple Work Phone: [facility] 02-18-2023 13:40-0500 Heart rate 64 /min DO Christopher Kaple Work Phone: [facility] 02-18-2023 13:40-0500 Respiratory rate 16 /min DO Christopher Kaple Work Phone: [facility] 02-18-2023 13:40-0500 SaO2% (BldA) [Mass fraction] 98 % DO Christopher Kaple Work Phone: [facility] 02-18-2023 13:40-0500 Systolic blood pressure 169 mm[Hg] DO Christopher Kaple Work Phone: [facility] 02-18-2023 12:40-0500 Inhaled oxygen flow rate 1 L/min DO Christopher Kaple Work Phone: [facility] 02-18-2023 09:15-0500 Body height 165.1 cm DO Christopher Kaple Work Phone: [facility] 02-18-2023 09:15-0500 Body weight 97.52 kg DO Christopher Kaple Work Phone: [facility] 02-16-2023 13:23-0500 Heart rate 76 /min Gary Prashant [facility] 02-16-2023 13:23-0500 SaO2% (BldA) [Mass fraction] 96 % Gary Prashant [facility] 02-16-2023 13:22-0500 Diastolic blood pressure 80 mm[Hg] Gary Cerda [facility] 02-16-2023 13:22-0500 Mean blood pressure 105 mm[Hg] Gary Cerda [facility] 02-16-2023 13:22-0500 Systolic blood pressure 155 mm[Hg] Gary Cerda [facility] 02-16-2023 13:22-0500 Body temperature 97.7 [degF] Gary Cerda [facility] 02-16-2023 13:21-0500 Respiratory rate 16 /min Gary Cerda [facility] 02-12-2023 09:03-0500 Body height 165.1 cm Fariha Guidry MD Work Phone: [facility] 02-12-2023 09:03-0500 Body mass index (BMI) [Ratio] 35.78 kg/m2 Fariha Guidry MD Work Phone: [facility] 02-12-2023 09:03-0500 Body weight 97.52 kg Fariha Guidry MD Work Phone: [facility] 02-12-2023 09:03-0500 Diastolic blood pressure 64 mm[Hg] Fariha Guidry MD Work Phone: [facility] 02-12-2023 09:03-0500 Heart rate 64 /min Fariha Guidry MD Work Phone: [facility] 02-12-2023 09:03-0500 Systolic blood pressure 120 mm[Hg] Fariha Guidry MD Work Phone: [facility] 01-26-2023 08:00-0500 Blood Pressure Location Christopher WELLS [facility] 01-26-2023 08:00-0500 Body temperature 98.6 [degF] Christopher KAPLE [facility] 01-26-2023 08:00-0500 Diastolic blood pressure 72 mm[Hg] Christopher KAPLE [facility] 01-26-2023 08:00-0500 Heart rate 65 /min Christopher KAPLE [facility] 01-26-2023 08:00-0500 SaO2% (BldA) [Mass fraction] 96 % Christopher KAPLE [facility] 01-26-2023 08:00-0500 Systolic blood pressure 124 mm[Hg] Christopher KAPLE [facility] 01-06-2023 08:13-0400 Diastolic blood pressure 78 mm[Hg] Gary Prashant [facility] 01-06-2023 08:13-0400 Heart rate 69 /min Gary Prashant [facility] 01-06-2023 08:13-0400 Mean blood pressure 107 mm[Hg] Gary Prashant [facility] 01-06-2023 08:13-0400 Respiratory rate 14 /min Gary Prashant [facility] 01-06-2023 08:13-0400 Systolic blood pressure 166 mm[Hg] Gary Prashant [facility] 01-05-2023 09:15-0400 Body height 165.1 cm Miguel Membreno Other [employer] Other 01-05-2023 09:15-0400 Body mass index (BMI) [Ratio] 33.28 kg/m2 Miguel Buehrer Other [employer] Other 01-05-2023 09:15-0400 Body temperature 96.3 [degF] Miguel Buehrer Other [employer] Other 01-05-2023 09:15-0400 Body weight 90.72 kg Miguel Maierehrer Other [employer] Other 01-05-2023 09:15-0400 Diastolic blood pressure 62 mm[Hg] Miguel Buehrer Other [employer] Other 01-05-2023 09:15-0400 SaO2% (BldA) [Mass fraction] 97 % Miguel Buehrer Other [employer] Other 01-05-2023 09:15-0400 Systolic blood pressure 120 mm[Hg] Miguel Buehrer Other [employer] Other 11-04-2022 12:00-0400 Body height 165.1 cm Miguel Martinezrer Other [employer] Other 11-04-2022 12:00-0400 Body mass index (BMI) [Ratio] 33.28 kg/m2 Miguel Maierehrer Other [employer] Other 11-04-2022 12:00-0400 Body temperature 97.1 [degF] Miguel Buehrer Other [employer] Other 11-04-2022 12:00-0400 Body weight 90.72 kg Miguel Maierehrer Other [employer] Other 11-04-2022 12:00-0400 Diastolic blood pressure 70 mm[Hg] Miguel Butcherr Other [employer] Other 11-04-2022 12:00-0400 SaO2% (BldA) [Mass fraction] 95 % Miguel Membreno Other [employer] Other 11-04-2022 12:00-0400 Systolic blood pressure 140 mm[Hg] Miguel Membreno Other [employer] Other 11-03-2022 10:30-0400 Body height 165.1 cm Renetta Barahona Other [employer] Other 11-03-2022 10:30-0400 Body mass index (BMI) [Ratio] 33.28 kg/m2 Renetta Barahona Other [employer] Other 11-03-2022 10:30-0400 Body temperature 97.6 [degF] Renetta Barahona Other [employer] Other 11-03-2022 10:30-0400 Body weight 90.72 kg Renetta Barahona Other [employer] Other 11-03-2022 10:30-0400 Diastolic blood pressure 76 mm[Hg] Renetta Barahona Other [employer] Other 11-03-2022 10:30-0400 SaO2% (BldA) [Mass fraction] 98 % Renetta Barahona Other [employer] Other 11-03-2022 10:30-0400 Systolic blood pressure 116 mm[Hg] Renetta Barahona Other [facility] [employer] Other 09-10-2022 08:12-0400 Blood Pressure Location Lindajahaira MeltonOsmin [facility] 09-10-2022 08:12-0400 Body temperature 96.8 [degF] Linda Osmin [facility] 09-10-2022 08:12-0400 Diastolic blood pressure 71 mm[Hg] Linda Osmin [facility] 09-10-2022 08:12-0400 Heart rate 56 /min Linda Osmin [facility] 09-10-2022 08:12-0400 Systolic blood pressure 118 mm[Hg] Linda Osmin [facility] 06-11-2022 09:10-0400 Diastolic blood pressure 70 mm[Hg] Linda Osmin [facility] 06-11-2022 09:10-0400 Mean blood pressure 92 mm[Hg] Linda Osmin [facility] 06-11-2022 09:10-0400 Systolic blood pressure 136 mm[Hg] Linda Osmin [facility] 06-11-2022 09:04-0400 Blood Pressure Location Linda Osmin [facility] 06-11-2022 09:04-0400 Body temperature 97.88 [degF] Linda Osmin [facility] 06-11-2022 09:04-0400 Diastolic blood pressure 75 mm[Hg] Linda Osmin [facility] 06-11-2022 09:04-0400 Heart rate 66 /min Linda Solorio [facility] 06-11-2022 09:04-0400 Systolic blood pressure 155 mm[Hg] Linda Solorio [facility] 05-05-2022 09:45-0500 Body height 165.1 cm Miguel Membreno Other [employer] Other 05-05-2022 09:45-0500 Body mass index (BMI) [Ratio] 33.28 kg/m2 Miguel Membreno Other [employer] Other 05-05-2022 09:45-0500 Body temperature 96.2 [degF] Miguel Membreno Other [employer] Other 05-05-2022 09:45-0500 Body weight 90.72 kg Miguel Membreno Other [employer] Other 05-05-2022 09:45-0500 Diastolic blood pressure 60 mm[Hg] Miguel Membreno Other [employer] Other 05-05-2022 09:45-0500 SaO2% (BldA) [Mass fraction] 97 % Miguel Membreno Other [employer] Other 05-05-2022 09:45-0500 Systolic blood pressure 112 mm[Hg] Miguel Membreno Other [employer] Other 04-07-2022 20:00-0500 Diastolic blood pressure 80 mm[Hg] DO Christopher Wells Work Phone: [facility] 04-07-2022 20:00-0500 Heart rate 70 /min DO Christopher Kaple Work Phone: [facility] 04-07-2022 20:00-0500 Respiratory rate 18 /min DO Christopher Kaple Work Phone: [facility] 04-07-2022 20:00-0500 SaO2% (BldA) [Mass fraction] 98 % DO Christopher Kaple Work Phone: [facility] 04-07-2022 20:00-0500 Systolic blood pressure 159 mm[Hg] DO Christopher Kaple Work Phone: [facility] 04-07-2022 17:05-0500 Body temperature 98.1 [degF] DO Christopher Kaple Work Phone: [facility] 04-07-2022 16:20-0500 Inhaled oxygen flow rate 2 L/min DO Christopher Kaple Work Phone: [facility] 04-07-2022 13:53-0500 Body height 165.1 cm DO Christopher Kaple Work Phone: [facility] 04-07-2022 13:53-0500 Body weight 90.71 kg DO Christopher Kaple Work Phone: [facility] 03-31-2022 10:15-0500 Body height 165.1 cm Renetta Barahona Other [employer] Other 03-31-2022 10:15-0500 Body mass index (BMI) [Ratio] 33.28 kg/m2 Renetta Barahona Other [employer] Other 03-31-2022 10:15-0500 Body temperature 98.7 [degF] Renetta Barahona Other [employer] Other 03-31-2022 10:15-0500 Body weight 90.72 kg Renetta Barahona Other [employer] Other 03-31-2022 10:15-0500 Diastolic blood pressure 82 mm[Hg] Renetta Barahona Other [employer] Other 03-31-2022 10:15-0500 SaO2% (BldA) [Mass fraction] 98 % Renetta Barahona Other [employer] Other 03-31-2022 10:15-0500 Systolic blood pressure 136 mm[Hg] Renetta Barahona Other [employer] Other 01-27-2022 12:00-0500 Body height 165.1 cm Miguel Membreno Other [employer] Other 01-27-2022 12:00-0500 Body mass index (BMI) [Ratio] 33.28 kg/m2 Miguel Martinezremelissa Other [employer] Other 01-27-2022 12:00-0500 Body temperature 97.7 [degF] Miguel Martinezrer Other [employer] Other 01-27-2022 12:00-0500 Body weight 90.72 kg Miguel Buehrer Other [employer] Other 01-27-2022 12:00-0500 Diastolic blood pressure 70 mm[Hg] Miguel Maierehrer Other [employer] Other 01-27-2022 12:00-0500 SaO2% (BldA) [Mass fraction] 98 % Miguel Martinezrer Other [employer] Other 01-27-2022 12:00-0500 Systolic blood pressure 142 mm[Hg] Miguel Membreno Other [employer] Other 01-15-2022 10:29-0400 Body height 165.1 cm Christopher Wells Work Phone: [facility] [place] DO Work Phone: 01-15-2022 10:29-0400 Body mass index (BMI) [Ratio] 34.95 kg/m2 Christopher Wells Work Phone: [facility] [place] 600 DO Work Phone: 01-15-2022 10:29-0400 Body surface area Derived from formula 2.02 m2 Christopher Wells Work Phone: [facility] [place] [facility] DO Work Phone: 01-15-2022 10:29-0400 Body weight 95.26 kg Christopher Wells Work Phone: [facility] [place] [facility] DO Work Phone: 01-15-2022 10:29-0400 Diastolic blood pressure 60 mm[Hg] Christopher Wells Work Phone: [facility] [place] [facility] DO Work Phone: 01-15-2022 10:29-0400 Heart rate 68 /min Christopher Wells Work Phone: [facility] [place] [facility] DO Work Phone: 01-15-2022 10:29-0400 Systolic blood pressure 116 mm[Hg] Christopher Wells Work Phone: [facility] [place] [facility] DO Work Phone: 11-28-2021 15:19-0400 Blood Pressure Location Charis Daniel [facility] 11-28-2021 15:19-0400 Diastolic blood pressure 69 mm[Hg] Charis Fredy [facility] 11-28-2021 15:19-0400 Heart rate 61 /min Charis Fredy [facility] 11-28-2021 15:19-0400 Respiratory rate 18 /min Charis Fredy [facility] 11-28-2021 15:19-0400 SaO2% (BldA) [Mass fraction] 98 % Charis Fredy [facility] 11-28-2021 15:19-0400 Systolic blood pressure 132 mm[Hg] Charis Fredy [facility] 10-28-2021 09:56-0400 Blood Pressure Location Mohlucio Fredy [facility] 10-28-2021 09:56-0400 Diastolic blood pressure 72 mm[Hg] Charis Fredy [facility] 10-28-2021 09:56-0400 Heart rate 76 /min Charis Fredy [facility] 10-28-2021 09:56-0400 SaO2% (BldA) [Mass fraction] 96 % Charis Fredy [facility] 10-28-2021 09:56-0400 Systolic blood pressure 120 mm[Hg] Charis Fredy [facility] 05-28-2021 12:25-0400 Diastolic blood pressure 64 mm[Hg] Christopher Wells Work Phone: [facility] 600 DO Work Phone: 05-28-2021 12:25-0400 Systolic blood pressure 130 mm[Hg] Christopher Wells Work Phone: [facility] 600 DO Work Phone: 05-28-2021 12:21-0400 Body height 165.1 cm Christopher Wells Work Phone: [facility] 600 DO Work Phone: 05-28-2021 12:21-0400 Body mass index (BMI) [Ratio] 33.98 kg/m2 Christopher Bale Work Phone: [facility] 600 DO Work Phone: 05-28-2021 12:21-0400 Body surface area Derived from formula 2 m2 Christopher Wells Work Phone: [facility] 600 DO Work Phone: 05-28-2021 12:21-0400 Body weight 92.63 kg Christopher Wells [facility] Work Phone: 05-28-2021 12:21-0400 Diastolic blood pressure 76 mm[Hg] Christopher Wells Work Phone: [facility] 600 DO Work Phone: 05-28-2021 12:21-0400 Heart rate 68 /min Christopher Wells Work Phone: [facility] 600 DO Work Phone: 05-28-2021 12:21-0400 Systolic blood pressure 140 mm[Hg] Christopher Wells Work Phone: [facility] 600 DO Work Phone: 05-08-2021 11:36-0500 Diastolic blood pressure 90 mm[Hg] Christopher Wells Work Phone: [facility] 250 DO Work Phone: 05-08-2021 11:36-0500 Systolic blood pressure 180 mm[Hg] Christopher Wells Work Phone: [facility] 250 DO Work Phone: 05-08-2021 11:20-0500 Body height 165.1 cm Christopher Wells Work Phone: [facility] 250 DO Work Phone: 05-08-2021 11:20-0500 Body mass index (BMI) [Ratio] 34.11 kg/m2 Christopher Bale Work Phone: [facility] 250 DO Work Phone: 05-08-2021 11:20-0500 Body surface area Derived from formula 2 m2 Christopher Wells Work Phone: [facility] 250 DO Work Phone: 05-08-2021 11:20-0500 Body weight 92.99 kg Christopher Wells Work Phone: [facility] 250 DO Work Phone: 05-08-2021 11:20-0500 Diastolic blood pressure 90 mm[Hg] Christopher Wells Work Phone: [facility] 250 DO Work Phone: 05-08-2021 11:20-0500 Heart rate 68 /min Christopher Wells Work Phone: [facility] 250 DO Work Phone: 05-08-2021 11:20-0500 Systolic blood pressure 142 mm[Hg] Christopher Wells Work Phone: [facility] 250 DO Work Phone: Encounters Encounter Date Encounter Type Care Provider Facility Start: 04-10-2023 End: 04-10-2023 Emergency department patient visit Malvin Gu[place] [place]: 04-10-2023 End: 04-10-2023 Emergency department patient visit Malvin Gupta [facility] Start: 03-23-2023 End: 03-24-2023 ambulatory Mara Dawit [place] [place] Start: 03-20-2023 End: 03-21-2023 ambulatory Christopher WELLS Facility:[place] Start: 03-20-2023 End: 03-20-2023 Patient encounter procedure Christopher WELLS [facility] Start: 03-18-2023 End: 03-18-2023 ambulatory DENTON D DOLCE Not Available Start: 03-04-2023 End: 03-05-2023 ambulatory DO Nicola Tapia Facility[place] [place] Start: 03-04-2023 End: 03-04-2023 Pain Management Nicola Tapia [facility] Start: 03-03-2023 End: 03-03-2023 Patient encounter procedure Denton D Angelyce [facility] Start: 03-03-2023 End: 03-04-2023 ambulatory Denton D Dolce [facility] [place] Other Start: 03-03-2023 Office outpatient vi sit 25 minutes Miguel CHOI [facility] Start: 03-02-2023 End: 03-03-2023 ambulatory Linda Solorio Facility:[facility] Start: 03-02-2023 End: 03-02-2023 Patient encounter procedure Linda Solorio [facility] Start: 02-24-2023 End: 02-25-2023 ambulatory Denton D Dolce [place] [place] Start: 02-20-2023 End: 02-20-2023 ambulatory DENTON D DOLCE Not Available Start: 02-19-2023 End: 04-10-2023 ambulatory Christopher WELLS Facility:CD:[id number] Start: 02-18-2023 End: 02-18-2023 ambulatory Miguel Membreno Facility:[facility] Start: 02-18-2023 End: 02-18-2023 Admission to same day surgery center DO Christopher Wells Work Phone: [facility] Work Phone: Start: 02-18-2023 End: 02-18-2023 ambulatory DO Christopher Wells Work Phone: [facility] Work Phone: Start: 02-16-2023 End: 02-17-2023 ambulatory MD Gary Cerda Facility[place] Start: 02-16-2023 End: 02-16-2023 Pain Management Gary Cerda [facility] Start: 02-16-2023 End: 02-17-2023 ambulatory Denton Mares [place] Start: 02-16-2023 End: 02-16-2023 Patient encounter procedure Denton Mares [facility] Start: 02-12-2023 End: 02-12-2023 ambulatory [facility] Start: 02-12-2023 End: 02-12-2023 Office outpatient visit 25 minutes Fariha Guidry MD Work Phone: [facility] Comment on above: Atherosclerosis of n ative coronary artery of [place] heart without angina pectoris; Status post coronary angioplasty; Essential hypertension; Hyperlipidemia, unspecified hyperlipidemia type; PVD (peripheral vascular disease) ([facility]/HCC); Stage 3 chronic kidney disease, unspecified whether stage 3a or 3b CKD (CMS/HCC); Sleep apnea, unspecified type Start: 02-10-2023 End: 02-11-2023 ambulatory Denton Mares [place] Start: 02-10-2023 End: 02-10-2023 Patient encounter procedure Denton Mares [facility] Start: 01-27-2023 End: 01-28-2023 ambulatory Denton Mares [employer] Other Start: 01-27-2023 Telephone encounter Miguel Membreno [facility] V[facility] Surgery Start: 01-27-2023 End: 01-27-2023 Patient encounter procedure Denton Mares [facility] Start: 01-26-2023 End: 01-27-2023 ambulatory Christopher WELSL Facility:[facility] Start: 01-26-2023 End: 01-26-2023 Patient encounter procedure Christopher WELLS [facility] Start: 01-26-2023 End: 01-26-2023 Well adult monitoring check done Christopher WELLS [facility] Start: 01-19-2023 End: 01-20-2023 ambulatory Denton Mares [place] Start: 01-19-2023 End: 01-19-2023 Patient encounter procedure Denton Mares [facility] Start: 01-13-2023 End: 01-14-2023 ambulatory Denton Gomez Angelygreg [place] [place] Start: 01-13-2023 End: 01-13-2023 Patient encounter procedure Denton Mares [facility] Start: 01-06-2023 End: 01-07-2023 ambulatory MD Gary Cerda [place] [place] Start: 01-06-2023 End: 01-06-2023 Pain Management Gary Cerda [facility] Start: 01-05-2023 End: 01-05-2023 ambulatory Miguel Membreno Other [employer] Other Start: 01-05-2023 Office outpatient vi sit 25 minutes Miguel Membreno [facility] V[facility] Surgery Start: 12-31-2022 End: 01-01-2023 ambulatory Catrachito Wolf [place] Start: 12-31-2022 End: 12-31-2022 Patient encounter procedure Catrachito Wolf [facility] Start: 12-22-2022 End: 12-23-2022 ambulatory Denton Jason Mares [place] Start: 12-18-2022 End: 12-19-2022 ambulatory Christopher A RUSSELL Facility:[facility] Start: 12-08-2022 End: 12-09-2022 ambulatory Catrachito Wolf [place] Start: 12-08-2022 End: 12-08-2022 Patient encounter procedure Catrachito Wolf [facility] Start: 11-24-2022 End: 11-25-2022 ambulatory Christopher WELLS [place] Start: 11-24-2022 End: 11-24-2022 Patient encounter procedure Christopher A RUSSELL [facility] Start: 11-06-2022 End: 11-07-2022 ambulatory Christopher WELLS Facility:[place] Start: 11-04-2022 Office outpatient vi sit 25 minutes Miguel Membreno [facility] V[facility] Surgery Start: 11-04-2022 End: 11-04-2022 ambulatory DO Christopher Wells Work Phone: [facility] [place] Other Start: 11-04-2022 End: 11-04-2022 Patient encounter procedure DO Christopher Wells Work Phone: [facility] Start: 11-03-2022 Follow-up encounter Renetta Musa [facility] Start: 11-03-2022 End: 11-03-2022 ambulatory Christopher Wells [facility] [place] Other Start: 11-03-2022 End: 11-03-2022 Patient encounter procedure DO Christopher Wells Work Phone: [facility] Start: 10-31-2022 End: 11-01-2022 ambulatory Klaus Akkina Facility[place] Start: 10-31-2022 End: 10-31-2022 Patient encounter procedure Klaus Akkina [facility] Start: 09-18-2022 Chart Update Christopher Wells Work Phone: [facility] 250 DO Work Phone: Start: 09-17-[address] Christopher Wells [facility] ity:[id number] Start: 09-10-2022 End: 09-11-2022 ambulatory Linda Solorio Facility:[facility] Start: 09-10-2022 End: 09-10-2022 Patient encounter procedure Linda Solorio [facility] Start: 08-01-2022 End: 08-02-2022 ambulatory Fariha Delucaim [place] Start: 07-23-2022 Rx Renewal Christopher Wells Work Phone: [facility] 250 DO Work Phone: Start: 06-13-2022 Rx Renewal Christopher Wells Work Phone: [facility] DO Work Phone: Start: 06-11-2022 End: 06-12-2022 ambulatory Linda Sol[facility] Start: 06-11-2022 End: 06-11-2022 Patient encounter procedure Linda Solorio [facility] Start: 05-21-2022 End: 05-22-2022 ambulatory Luis BENSON [place] Start: 05-08-2022 End: 05-09-2022 ambulatory Linda Solorio [facility] Start: 05-08-2022 End: 05-08-2022 Lab Drop off Linda Solorio [facility] Start: 05-05-2022 End: 05-06-2022 ambulatory Linda Solorio [facility] [place] Other Start: 05-05-2022 Office outpatient vi sit 25 minutes Miguel Membreno [facility] Vascular Surgery Start: 04-08-2022 End: 04-08-2022 ambulatory Renetta Barahona Other [facility] [place] Other Start: 04-08-2022 Telephone encounter Renetta Musa [facility] Start: 04-07-2022 End: 04-07-2022 ambulatory Miguel Membreno Facility:[facility] Start: 04-07-2022 End: 04-07-2022 Admission to same day surgery center DO Christopher Wells Work Phone: [facility] Work Phone: Start: 04-07-2022 End: 04-07-2022 ambulatory DO Christopher Montenegro Kapjanna Work Phone: [facility] Work Phone: Start: 03-31-2022 Follow-up encounter Renetta Musa [facility] Start: 03-31-2022 End: 03-31-2022 ambulatory Miguel Membreno Facility:[facility] Start: 03-31-2022 End: 03-31-2022 ambulatory DO Christopher A Kapjanna Work Phone: [facility] Work Phone: Start: 03-31-2022 End: 03-31-2022 Patient encounter procedure DO Christopher Kaple Work Phone: [facility] Start: 03-31-2022 End: 03-31-2022 Patient encounter procedure Klaus Núñez [facility] Start: 02-12-2022 End: 02-12-2022 Patient encounter procedure Christopher WELLS [facility] Start: 01-27-2022 End: 01-27-2022 ambulatory Miguel Membreno Other [facility] [place] Other Start: 01-27-2022 Office outpatient ne w 45 minutes Miguel Membreno [facility] Vascular Surgery Start: 01-15-[address] Fariha cesar [facility] Facility: Start: 01-15-2022 Office outpatient vi sit 25 minutes Christopher Wells Work Phone: [facility] 600 DO Work Phone: Start: 12-31-2021 End: 06-01-2022 Recurring Charis Daniel [facility] Start: 11-28-2021 End: 11-28-2021 Patient encounter procedure Charis Daniel [facility] Start: 11-12-2021 Rx Renewal Christopher Wells Work Phone: [facility] 250 DO Work Phone: Start: 10-28-2021 Rx Renewal Christopher Wells Work Phone: [facility] Work Phone: Start: 10-28-2021 End: 10-28-2021 Patient encounter procedure Charis Daniel [facility] Start: 10-01-2021 End: 10-01-2021 Patient encounter procedure Christopher WELLS [facility] Start: 09-24-2021 End: 09-24-2021 Patient encounter procedure Christopher WELLS [facility] Start: 08-08-2021 End: 08-08-2021 Patient encounter procedure Christopher WELLS [facility] Start: 07-30-2021 Rx Renewal Christopher Wells Work Phone: [facility] 250 DO Work Phone: Start: 06-12-2021 End: 01-13-2022 Recurring Christopher WELLS [facility] Start: 05-28-2021 Office outpatient vi sit 10 minutes Christopher Wells Work Phone: [facility] 600 DO Work Phone: Start: 05-28-2021 ambulatory Christopher Wells Facility: Start: 05-12-2021 Chart Update Christopher Wells Work Phone: [facility] Work Phone: Start: 05-08-2021 ambulatory [...] 05-21-2032 Screening for malignant neoplasm of colon [facility] Start: 05-09-2025 DTaP/Tdap/Td Vaccines (2 - Td or Tdap) DTaP/Tdap/Td Vaccines (2 - Td or Tdap) [facility] Start: 02-01-2024 ambulatory Ambulatory Facility:[facility] Start: 07-28-2023 ambulatory Ambulatory Facility:[facility] Start: 02-18-2023 US Lower extremity veins - bilateral [facility] Start: 02-18-2023 US scan venography of lower limbs US venous mapping [facility] Start: 02-18-2023 [facility] Start: 02-12-2023 End: 02-13-2024 Alanine aminotransferase [Enzymatic activity/volume] in Serum or Plasma by With P-5'-P Alanine Aminotransferase Lab Routine Atherosclerosis of [place] coronary artery of [place] heart without angina pectoris Hyperlipidemia, unspecified hyperlipidemia type Expected: 02/12/2023 (Approximate), Expires: 02/13/2024 [facility] Service Area Work Phone: Comment on above: Expected: 02/12/2023 (Approximate), Expi res: 02/13/2024 Start: 02-12-2023 End: 02-13-2024 Aspartate aminotransferase [Enzymatic activity/volume] in Serum or Plasma by With P-5'-P Aspartate Aminotransferase Lab Routine Atherosclerosis of [place] coronary artery of [place] heart without angina pectoris Hyperlipidemia, unspecified hyperlipidemia type Expected: 02/12/2023 (Approximate), Expires: 02/13/2024 [facility] Work Phone: Comment on above: Expected: 02/12/2023 (Approximate), Expi res: 02/13/2024 Start: 02-12-2023 End: 02-13-2024 Lipid 1996 panel - Serum or Plasma Lipid Panel Lab Routine Atherosclerosis of [place] coronary artery of [place] heart without angina pectoris Hyperlipidemia, unspecified hyperlipidemia type Expected: 02/12/2023 (Approximate), Expires: 02/13/2024 [facility] Work Phone: Comment on above: Expected: 02/12/2023 (Approximate), Expi res: 02/13/2024 Start: 02-12-2023 FUV, Provider: Fariha Guidry, Status: Pen, Time: 9:00 AM FUV, Provider: Fariha Guidry, Status: Pen, Time: 9:00 AM [facility] Work Phone: Start: 11-14-2022 Influenza vaccination Influenza Vaccine (#1) [facility] Start: 07-30-2022 FUV, Provider: Fariha Guidry, Status: Pen, Time: 8:40 AM FUV, Provider: Fariha Guidry, Status: Pen, Time: 8:40 AM [facility] Work Phone: Start: 04-07-2022 [facility] Start: 02-12-2022 COVID-19 Vaccine (4 - Booster for Luca series) COVID-19 Vaccine (4 - Booster for Luca series) [facility] Start: 01-15-2022 FUV, Provider: Fariha Guidry, Status: Pen, Time: 10:10 AM FUV, Provider: Fariha Guidry, Status: Pen, Time: 10:10 AM [facility] Work Phone: Start: 05-28-2021 NURSEVST, Provider: CITLALLI RASHID SIZE MIXER 1,[id number], Status: Pen, Time: 11:45 AM NURSEVST, Provider: CITLALLI RASHID SIZE MIXER 1,[id number], Status: Pen, Time: 11:45 AM [facility] 250 DO Work Phone: Start: 1989 Screening for malignant neoplasm of breast Mammogram [facility] Start: 06-25-1967 Diabetes mellitus screening Diabetes Screening [facility] Start: 06-25-1967 Hepatitis C screening Hepatitis C Screening [facility] Start: 1949 Lipid panel Lipid Panel [facility] Start: 1949 Medicare Annual Wellness Visit Medicare Annual Wellness Visit (AWV) [facility] Start: 1949 Screening for malignant neoplasm of colon [facility] Start: 1949 Screening for osteoporosis Bone Density Scan [facility] Patient Education [facility] Work Phone: Patient referral [facility] Work Phone: Immunizations Immunization Date Immunization Notes Care Provider Fa cility 12-18-2021 Fluad Quadrivalent 0 .5 ML Intramuscular Prefilled Syringe Christopher Wells Work Phone: [facility] 600 DO Work Phone: 12-18-2021 influenza virus vaccine, unspecified formulation Christopher WELLS [facility] 12-18-2021 Pfizer COVID-19 Vac Bivalent 30 MCG/0.3ML Intramuscular Suspension Christopher Wells Work Phone: [facility] 600 DO Work Phone: 12-18-2021 SARS-CoV-2 (COVID-19 ) mRNA [id number] vax Christopher WELLS [facility] [facility] 03-26-2021 Fluzone High-Dose Quadrivalent 0.7 ML Intramuscular Suspension Prefilled Syringe Christopher Wells Work Phone: [facility] 250 DO Work Phone: 03-26-2021 influenza virus vaccine, unspecified formulation Christopher WELLS [facility] 03-26-2021 Pfizer-BioNTech COVID-19 Vacc 30 MCG/0.3ML Intramuscular Suspension Christopher Wells Work Phone: [facility] 250 DO Work Phone: 05-19-2020 Luca COVID-19 Vaccine 0.5 ML Intramuscular Suspension Christopher Wells Work Phone: [facility] 250 DO Work Phone: 05-18-2020 COVID-19 vaccine, vector-nr, [id number], PF, 0.5 mL; Translations: [Luca COVID-19 Vaccine] Christopher WELLS [facility] Comment on above: Reason for Medicatio n: Prophylaxis Reason for Medicatio n: Prophylaxis 02-23-2020 zoster vaccine recombinant Christopher Wells Work Phone: [facility] 250 DO Work Phone: 01-05-2020 Fluad Quadrivalent 0 .5 ML Intramuscular Prefilled Syringe Christopher Wells Work Phone: [facility] 250 DO Work Phone: 01-05-2020 influenza virus vaccine, unspecified formulation Christopher WELLS [facility] 12-28-2019 influenza, high dose seasonal, preservative-free Christopher Wells Work Phone: [place] [address] DO Work Phone: 12-15-2019 influenza virus vaccine, unspecified formulation Christopher WELLS [facility] 11-15-2019 zoster vaccine recombinant Christopher Wells Work Phone: [place] [address] DO Work Phone: 11-15-2019 zoster vaccine, live Christopher MARTI [facility] 12-20-2018 influenza, high dose seasonal, preservative-free Christopher WELLS [facility] 12-14-2018 influenza virus vaccine, unspecified formulation Christopher WELLS [facility] 12-14-2018 influenza, high dose seasonal, preservative-free Christopher Wells Work Phone: [place] [address] DO Work Phone: 12-14-2018 pneumococcal polysaccharide vaccine, 23 valent Christopher Wells Work Phone: [place] [address] DO Work Phone: 02-16-2018 influenza virus vaccine, unspecified formulation Christopher WELLS [facility] 02-16-2018 Influenza, injectabl e, Madin Milly Canine Kidney, preservative free, quadrivalent Christopher Wells Work Phone: [place] [address] DO Work Phone: 02-16-2018 pneumococcal conjuga te vaccine, 13 valent Christopher Moni Russell Work Phone: [place] [address] DO Work Phone: 11-14-2017 influenza virus vaccine, unspecified formulation Christopher Montenegro Russell Work Phone: [place] [address] DO Work Phone: 11-27-2016 influenza virus vaccine, unspecified formulation Christopher RUSSELL [facility] 11-27-2016 influenza, high dose seasonal, preservative-free Christopher Bajanna Work Phone: [place] [address] DO Work Phone: 01-21-2016 influenza virus vaccine, unspecified formulation Christopher BAJANNA [facility] 01-21-2016 influenza, high dose seasonal, preservative-free Christopher Bajanna Work Phone: [place] [address] DO Work Phone: 05-09-2015 tetanus toxoid, redu louise diphtheria toxoid, and acellular pertussis vaccine, adsorbed Christopher Bajanna Work Phone: [place] [address] DO Work Phone: 02-26-2009 novel [id number], preservative-free, injectable Christopher Bajanna Work Phone: [place] [address] DO Work Phone: NEGATED: Highlighted row has not occurred!02-27-2023 influenza virus vaccine, unspecified formulation Lindajahaira MeltonOsmin [facility] NEGATED: Highlighted row has not occurred!12-18-2022 influenza virus vaccine, unspecified formulation Catrachito Westford [facility] Payers Date Payer Category Payer Self-pay [id number] 2022 Unknown [id number] 2018 Unknown 2018 Unknown [id number] 2014 Medicare [id number] 2014 Medicare MEDICARE MEDICAR E PART A AND B [id number] 2014-Present [address] [place] [address] [id number]. [id number] 1949 Unknown [id number] 2.16.840.1.822915.3.579.2.356 1949 Unknown [id number] 2.16.840.1.378703.3.579.2.356 1949 Unknown [id number] 2.16.840.1.488940.3.579.2.356 1949 Unknown [id number] 2.16.840.1.930500.3.579.2.1068 1949 Unknown [id number] 2.16.840.1.044340.3.579.2.1244 1949 Unknown [id number] 2.16.840.1.661472.3.579.2.1259 1949 Unknown [id number] 2.16.840.1.586363.3.579.2.1259 1949 Unknown [id number] 2.16.840.1.335578.3.579.2.727 1949 Unknown [id number] 2.16.840.1.010372.3.579.2.727 1949 Unknown [id number] 2.16.840.1.847550.3.579.2.727 1949 Unknown [id number] 2.16.840.1.313380.3.579.2 1949 Unknown [id number] 2.16.840.1.588423.3.579.2 1949 Unknown [id number] 2.16.840.1.181815.3.579.2 1949 Unknown [id number] 2.16.840.1.640978.3.579.2 1949 Unknown [id number] 2.16.840.1.302121.3.579. 1949 Unknown [id number] 2.16.840.1.481481.3.579. 1949 Unknown [id number] 2.16.840.1.184452.3.579. 1949 Unknown [id number] 2.16.840.1.909629.3.579. 1949 Unknown [id number] 2.16.840.1.631904.3.579. 1949 Unknown [id number] 2.16.840.1.148390.3.579.2 1949 Unknown [id number] 2.16.840.1.663359.3.579.2 1949 Unknown [id number] 2.16.840.1.661869.3.579.2 1949 Unknown [id number] 2.16.840.1.904399.3.579.2 1949 Unknown [id number] 2.16.840.1.157831.3.579.2 1949 Unknown [id number] 2.16.840.1.880721.3.579.2 1949 Unknown [id number] 2.16.840.1.940479.3.579.2 1949 Unknown [id number] 2.16.840.1.755448.3.579.2 1949 Unknown [id number] 2.16.840.1.445119.3.579.2 1949 Unknown [id number] 2.16.840.1.151029.3.579.2 1949 Unknown [id number] 2.16.840.1.525463.3.579.2 1949 Unknown [id number] 2.16.840.1.318223.3.579.2 1949 Unknown [id number] 2.16.840.1.072008.3.579.2 1949 Unknown [id number] 2.16.840.1.059224.3.579.2 1949 Unknown [id number] 2.16.840.1.922884.3.579.2 1949 Unknown [id number] 2.16.840.1.404664.3.579.2 1949 Unknown [id number] 2.16.840.1.538122.3.579.2 1949 Unknown [id number] 2.16.840.1.527978.3.579.2 1949 Unknown [id number] 2.16.840.1.950805.3.579.2.72 Unknown [id number] 2.16.840.1.037865.3.579.2.531 Unknown [id number] 2.16.840.1.817472.3.579.2.531 Unknown [id number] 2.16.840.1.280225.3.579.2.531 Unknown [id number] 2.16.840.1.054337.3.579.2.531 Unknown [id number] 2.16.840.1.625663.3.579.2.531 Social History Date Type Detail Facility Start: 02-12-2023 Never a smoker Never a smoker -[facility] 250 DO Work Phone: Start: 12-10-2020 End: 03-20-2023 Tobacco smoking status Never smoked tobacco (finding) [facility] Comment on above: denies use Tobacco smoking status Never [facility] Comment on above: denies use Start: 02-12-2023 Sex Assigned At Female F [facility] Start: 1950 Sex Assigned At Female F [facility] Start: 02-12-2023 Tobacco use and exposure Smokeless tobacco non-user [facility] Work Phone: Start: 02-12-2023 Alcohol intake Current drinke r of alcohol (finding) [facility] Work Phone: Start: 02-12-2023 Alcohol Comment social [facility] Work Phone: Start: 1950 Sex Assigned At Not on file U [facility] Work Phone: Start: 02-02-2023 End: 02-12-2023 Exposure to SARS-CoV-2 (event) Not sure [facility] Medical Equipment Procedure Code Equipment Code [...] 11, Dx: E11.9 Directions: BID, [id number], Supply, 165, cm, 06/11/22 9:10:00 EDT, Height/Length Dosing, 97.6, kg, 06/11/22 9:10:00 EDT, Weight Dosing Start: 06-13-2022 Lancets, See Instructions, 100 EA, 11, Dx: E11.9 Directions: BID, [facility], Supply, 166, cm, 05/10/21 8:27:00 EST, Height/Length Dosing, 92.8, kg, 05/10/21 8:27:00 EST, Weight Dosing Start: 05-10-2021 Test strips, See Instructions, 100 EA, 11, Dx: E11.9 Directions: BID, [facility] #[id number], Supply, 165, cm, 06/11/22 9:10:00 EDT, Height/Length Dosing, 97.6, kg, 06/11/22 9:10:00 EDT, Weight Dosing Start: 06-13-2022 CL CLOSURE DEVIC E EXOSEAL 6F FDA Start: 08-11-2018 CL STENT JIE 2.5 X 08 FDA Start: 08-11-2018 Multiple periphe ral artery stent, bare-metal [id number] FDA Start: 04-07-2022 Lancets, See Instructions, 100 EA, 11, Dx: E11.9 Directions: BID, [facility], Supply, 166, cm, 05/10/21 8:27:00 EST, Height/Length Dosing, 92.8, kg, 05/10/21 8:27:00 EST, Weight Dosing Start: 05-10-2021 Test strips, See Instructions, 100 EA, 11, Dx: E11.9 Directions: BID, [facility] #[id number], Supply, 165, cm, 06/11/22 9:10:00 EDT, Height/Length Dosing, 97.6, kg, 06/11/22 9:10:00 EDT, Weight Dosing Start: 06-13-2022 Lancets, See Instructions, 100 EA, 11, Dx: E11.9 Directions: BID, [facility], Supply, 166, cm, 05/10/21 8:27:00 EST, Height/Length Dosing, 92.8, kg, 05/10/21 8:27:00 EST, Weight Dosing Start: 05-10-2021 Test strips, See Instructions, 100 EA, 11, Dx: E11.9 Directions: BID, [facility] #[id number], Supply, 165, cm, 06/11/22 9:10:00 EDT, Height/Length Dosing, 97.6, kg, 06/11/22 9:10:00 EDT, Weight Dosing Start: 06-13-2022 Lancets, See Instructions, 100 EA, 11, Dx: E11.9 Directions: BID, [facility], Supply, 166, cm, 05/10/21 8:27:00 EST, Height/Length Dosing, 92.8, kg, 05/10/21 8:27:00 EST, Weight Dosing Start: 05-10-2021 Test strips, See Instructions, 100 EA, 11, Dx: E11.9 Directions: BID, [facility] #[id number], Supply, 165, cm, 06/11/22 9:10:00 EDT, Height/Length Dosing, 97.6, kg, 06/11/22 9:10:00 EDT, Weight Dosing Start: 06-13-2022 Lancets, See Instructions, 100 EA, 11, Dx: E11.9 Directions: BID, [facility], Supply, 166, cm, 05/10/21 8:27:00 EST, Height/Length Dosing, 92.8, kg, 05/10/21 8:27:00 EST, Weight Dosing Start: 05-10-2021 Test strips, See Instructions, 100 EA, 11, Dx: E11.9 Directions: BID, [facility] #[id number], Supply, 165, cm, 06/11/22 9:10:00 EDT, Height/Length Dosing, 97.6, kg, 06/11/22 9:10:00 EDT, Weight Dosing Start: 06-13-2022 Lancets, See Instructions, 100 EA, 11, Dx: E11.9 Directions: BID, [facility], Supply, 166, cm, 05/10/21 8:27:00 EST, Height/Length Dosing, 92.8, kg, 05/10/21 8:27:00 EST, Weight Dosing Start: 05-10-2021 Test strips, See Instructions, 100 EA, 11, Dx: E11.9 Directions: BID, [facility] #[id number], Supply, 165, cm, 06/11/22 9:10:00 EDT, Height/Length Dosing, 97.6, kg, 06/11/22 9:10:00 EDT, Weight Dosing Start: 06-13-2022 Lancets, See Instructions, 100 EA, 11, Dx: E11.9 Directions: BID, [facility], Supply, 166, cm, 05/10/21 8:27:00 EST, Height/Length Dosing, 92.8, kg, 05/10/21 8:27:00 EST, Weight Dosing Start: 05-10-2021 Test strips, See Instructions, 100 EA, 11, Dx: E11.9 Directions: BID, [facility] #[id number], Supply, 165, cm, 06/11/22 9:10:00 EDT, Height/Length Dosing, 97.6, kg, 06/11/22 9:10:00 EDT, Weight Dosing Start: 06-13-2022 Lancets, See Instructions, 100 EA, 11, Dx: E11.9 Directions: BID, [facility], Supply, 166, cm, 05/10/21 8:27:00 EST, Height/Length Dosing, 92.8, kg, 05/10/21 8:27:00 EST, Weight Dosing Start: 05-10-2021 Test strips, See Instructions, 100 EA, 11, Dx: E11.9 Directions: BID, [facility] #[id number], Supply, 165, cm, 06/11/22 9:10:00 EDT, Height/Length Dosing, 97.6, kg, 06/11/22 9:10:00 EDT, Weight Dosing Start: 06-13-2022 Lancets, See Instructions, 100 EA, 11, Dx: E11.9 Directions: BID, [facility], Supply, 166, cm, 05/10/21 8:27:00 EST, Height/Length Dosing, 92.8, kg, 05/10/21 8:27:00 EST, Weight Dosing Start: 05-10-2021 Test strips, See Instructions, 100 EA, 11, Dx: E11.9 Directions: BID, [facility] #[id number], Supply, 165, cm, 06/11/22 9:10:00 EDT, Height/Length Dosing, 97.6, kg, 06/11/22 9:10:00 EDT, Weight Dosing Start: 06-13-2022 Lancets, See Instructions, 100 EA, 11, Dx: E11.9 Directions: BID, [facility], Supply, 166, cm, 05/10/21 8:27:00 EST, Height/Length Dosing, 92.8, kg, 05/10/21 8:27:00 EST, Weight Dosing Start: 05-10-2021 Test strips, See Instructions, 100 EA, 11, Dx: E11.9 Directions: BID, [facility] #[id number], Supply, 165, cm, 06/11/22 9:10:00 EDT, Height/Length Dosing, 97.6, kg, 06/11/22 9:10:00 EDT, Weight Dosing Start: 06-13-2022 Lancets, See Instructions, 100 EA, 11, Dx: E11.9 Directions: BID, [facility], Supply, 166, cm, 05/10/21 8:27:00 EST, Height/Length Dosing, 92.8, kg, 05/10/21 8:27:00 EST, Weight Dosing Start: 05-10-2021 Test strips, See Instructions, 100 EA, 11, Dx: E11.9 Directions: BID, [facility][id number], Supply, 165, cm, 06/11/22 9:10:00 EDT, Height/Length Dosing, 97.6, kg, 06/11/22 9:10:00 EDT, Weight Dosing Start: 06-13-2022 Lancets, See Instructions, 100 EA, 11, Dx: E11.9 Directions: BID, [facility], Supply, 166, cm, 05/10/21 8:27:00 EST, Height/Length Dosing, 92.8, kg, 05/10/21 8:27:00 EST, Weight Dosing Start: 05-10-2021 Test strips, See Instructions, 100 EA, 11, Dx: E11.9 Directions: BID, [facility] #[id number], Supply, 165, cm, 06/11/22 9:10:00 EDT, Height/Length [...] 11, Dx: E11.9 Directions: BID, [facility] #[id number], Supply, 165, cm, 06/11/22 9:10:00 EDT, Height/Length Dosing, 97.6, kg, 06/11/22 9:10:00 EDT, Weight Dosing Start: 06-13-2022 Lancets, See Instructions, 100 EA, 11, Dx: E11.9 Directions: BID, [facility], Supply, 166, cm, 05/10/21 8:27:00 EST, Height/Length Dosing, 92.8, kg, 05/10/21 8:27:00 EST, Weight Dosing Start: 05-10-2021 Test strips, See Instructions, 100 EA, 11, Dx: E11.9 Directions: BID, [facility] #[id number], Supply, 165, cm, 06/11/22 9:10:00 EDT, Height/Length Dosing, 97.6, kg, 06/11/22 9:10:00 EDT, Weight Dosing Start: 06-13-2022 Lancets, See Instructions, 100 EA, 11, Dx: E11.9 Directions: BID, [facility], Supply, 166, cm, 05/10/21 8:27:00 EST, Height/Length Dosing, 92.8, kg, 05/10/21 8:27:00 EST, Weight Dosing Start: 05-10-2021 Test strips, See Instructions, 100 EA, 11, Dx: E11.9 Directions: BID, [facility][id number], Supply, 165, cm, 06/11/22 9:10:00 EDT, Height/Length Dosing, 97.6, kg, 06/11/22 9:10:00 EDT, Weight Dosing Start: 06-13-2022 Lancets, See Instructions, 100 EA, 11, Dx: E11.9 Directions: BID, [facility], Supply, 166, cm, 05/10/21 8:27:00 EST, Height/Length Dosing, 92.8, kg, 05/10/21 8:27:00 EST, Weight Dosing Start: 05-10-2021 Test strips, See Instructions, 100 EA, 11, Dx: E11.9 Directions: BID, [facility] #[id number], Supply, 165, cm, 06/11/22 9:10:00 EDT, Height/Length Dosing, 97.6, kg, 06/11/22 9:10:00 EDT, Weight Dosing Start: 06-13-2022 Lancets, See Instructions, 100 EA, 11, Dx: E11.9 Directions: BID, [facility], Supply, 166, cm, 05/10/21 8:27:00 EST, Height/Length Dosing, 92.8, kg, 05/10/21 8:27:00 EST, Weight Dosing Start: 05-10-2021 Test strips, See Instructions, 100 EA, 11, Dx: E11.9 Directions: BID, [facility][id number], Supply, 165, cm, 06/11/22 9:10:00 EDT, Height/Length Dosing, 97.6, kg, 06/11/22 9:10:00 EDT, Weight Dosing Start: 06-13-2022 Functional Status Date Assessment Result Facility 04-10-2023 Functional Status N/A [facility] 03-20-2023 Functional Status N/A [facility] 03-04-2023 Functional Status N/A [facility] 02-16-2023 Functional Status N/A [facility] 01-26-2023 Functional Status N/A [facility] 01-06-2023 Functional Status N/A [facility] 09-10-2022 Functional Status N/A [facility] 06-11-2022 Functional Status N/A [facility] 04-07-2022 Functional status Patient at Baseline [facility] Work Phone: 11-28-2021 N/A [facility] 10-28-2021 No [facility] Mental Status Date Assessment Result Facility 04-07-2022 Cognitive function Cognitive Sta tus Patient at Baseline [facility] Work Phone: Clinical Notes 01-27-2022 to 04-10-2023 Note Date & Type Note Facility 04-10-2023 Evaluation + Plan note Extrac beatriz from: Title:ED Note Author:Erick BARTH, Radhaems Crystal te:04/10/23 Bronchitis (J40: Bronchitis, not specified as acute or chronic) Orders: albuterol, 2 puff(s), Inhalation, q6hr Wheezing, 8.5 gm, Refill(s) 0, [facility][id number], 165, cm, 04/10/23 9:26:00 EST, Height/Length Dosing, 96.9, kg, 04/10/23 9:26:00 EST, Weight Dosing azithromycin, = 1 packet(s), Oral, As Directed, as directed on package labeling, X 5 day(s), # 6 tab(s), Refills(s) 0, Pharmacy: [facility] #[id number], 165, cm, 04/10/23 9:26:00 EST, Height/Length Dosing, 96.9, kg, 04/10/23 9:26:00 EST, Weight Dosing predniSONE, 60 mg = 3 tab(s), Oral, Daily, X 7 day(s), # 21 tab(s), Refills(s) 0, Pharmacy: [facility] #[id number], 165, cm, 04/10/23 9:26:00 EST, Height/Length Dosing, 96.9, kg, 04/10/23 9:26:00 EST, Weight Dosing XR Chest 2 Views Future Appointments Appointment Date:07/28/2023 08:00:00 AM Scheduled Provider:Christopher WELLS DO, FAAFP [place] [employer] Appointment Type: Open Appointment Date:02/01/2024 08:00:00 AM Scheduled Provider: Location:[facility] Appointment Type: Medicare Wellness Subsequent Future Scheduled Tests Laboratory* HgbA1c 03/27/22 * HgbA1c 06/25/22 * HCV Antibody RFX to Quant PCR 01/26/23 [facility]01-26-2024 Hospital Discharge instructions Patient Education 04/10/2023 11:23:39 [...] condition. Follow these instructions at home: Take ukyj-bsd-luxgyaz and prescription medicines only as told by [...] and water are not available, use hand signing agent. Avoid contact with people who have cold [...] it is easier to cough up. Take ledd-mcd-unhrrqh and prescription medicines only as told by [...] provider. Document Revised: 06/12/2022 Document Reviewed: 07/03/2021 [employer] Patient Education 2022 [employer]. Follow Up Care 04/10/2023 09:14:32 With:Christopher WELLS Address: [address], [place] [address]- [facility] (1) When:04/13/2023 11:17:35 [facility]01-05-2024 Hospital Discharge instructions Patient Education 03/20/2023 09:32:40 [...] plan? Your health care provider or certified procedural coder can help you make a plan for [...] (heat stroke). Where to find more information [place] [employer]: www.diabetes.org Summary Exercising regularly is important for overall health, especially for people who have diabetes mellitus. Exercising has many health benefits. It increases muscle strength and bone density and reduces bodyfat and stress. It also lowers and controls blood glucose. Your health care provider or certified procedural coder can help you make an activity plan [...] provider. Document Revised: 11/28/2019 Document Reviewed: 11/28/2019 [employer] Patient Education 2022 [employer]. Follow Up Care 12/18/2022 08:59:12 With:Christopher EWLLS DO, FAAFP, FAM, PED Address: [place] [address]- When:Within 4 Month(s) [facility] 12-20-2023 Evaluation + Plan [...] 09:00:00 AM Scheduled Provider:Christopher WELLS DO, FAAFP Location:[facility] Appointment Type:FM Open Appointment Date:03/23/2023 08:30:00 AM Scheduled Provider:Mara Pastor PA-C Location:[facility] Appointment Type:Pain Management - Follow Up (FT) Appointment Date:02/01/2024 08:00:00 AM Scheduled Provider: Location:[facility] Appointment Type: Medicare Wellness Subsequent Future Scheduled Tests Laboratory* HgbA1c 03/27/22 * HgbA1c 06/25/22 * HCV Antibody RFX to Quant PCR 01/26/23 [facility]12-20-2023 Note [id number] NoteDiagnosis: M16.12, left hip pain/osteoarthritis [...] DO.maria teresa\Date and Time Signed: 03/04/23 09:06 [id number] Evaluation note* Encounter Date Diagnosis Assessment Notes [...] sooner should she deteriorate in any way [employer] Other [id number] History of Present illness Narrative* Fariha Guidry [...] I suggested that she discuss with her youth advocate the addition of LOKU7gbiqrauye or GLP agonists. Reviewed with the patient [...] complications. 5. Diabetes, managed by endocrinology in [place]. A1c remains above target, advised patient to discuss with the youth advocate more aggressive therapy. 6. Hypertension completely under control. 7. High-risk medication with Xarelto, so far well-tolerated. Takes baby aspirin twice weekly 8. Stage III chronic kidney disease to be monitored closely, she follow with nephrology 9. intermittent claudications and PAD followed by vascular surgery in [place]. Patient is scheduled next week to have revascularization for intermittent claudication 10. Sleep apnea not consistently using CPAP machine. Encouraged the patient to utilize it daily. Fariha Guidry MD, [facility] Review of Systems All other systems reviewed [...] tablet, Rfl: 3 Assessment/Plan 1. Atherosclerosis of [place] coronary artery of [place] heart without angina pectoris Follow Up In Cardiology atorvastatin (Lipitor) 40 mg tablet Alanine Aminotransferase Aspartate Aminotransferase Lipid Panel 2. Status post coronary angioplasty Follow Up In Cardiology 3. Essential hypertension Follow Up In Cardiology 4. Hyperlipidemia, unspecified hyperlipidemia type atorvastatin (Lipitor) 40 mg tablet Alanine Aminotransferase Aspartate Aminotransferase Lipid Panel 5. PVD (peripheral vascular disease) ([facility]) 6. Stage 3 chronic kidney disease, unspecified whether stage 3a or 3b CKD ([facility]) 7. Sleep apnea, unspecified [facility]: 1(636) 550-586311-30-2023 Instructions* Patient Instructions* Saloni Benavides LPN - [...] Follow up 6 [facility]: [phone]) 217-144911-13-2023 Hospital Discharge instructions Patient Education 01/26/2023 09:01:27 [...] Carrots. Green beans. Tomatoes. Peppers. Onions. Cucumbers. [place] sprouts. Grains Whole grains, such as whole-wheat [...] meet with a certified diabetes care and assistant professor of education? Do I need to meet with a dietitian? What number can I call if I have questions? When are the best times to check my blood glucose? Where to find more information: [place] Diabetes Association: diabetes.org Academy of Nutrition and Dietetics: eatright.org National [place] of Diabetes and Digestive and Kidney Diseases: [...] provider. Document Revised: 10/03/2020 Document Reviewed: 10/03/2020 [employer] Patient Education 2022 [employer]. 01/26/2023 09:01:11 Fall Prevention in the Home, Adult, Prxo-ah-Sdop Fall Prevention in the Home, Adult Falls [...] Keep items that you use often in bvhr-wl-tugjr places. Lower the shelves around your home [...] of the way. Do not use floor nepali or wax that makes floors slippery. What [...] for Disease Control and PreventionKELLEY: www.cdc.gov National [place] on Aging: www.[place].nih.gov Contact a doctor if: [...] provider. Document Revised: 12/02/2021 Document Reviewed: 10/03/2020 [employer] Patient Education 2022 [employer]. 01/26/2023 09:01:04 Hepatitis C, Wehy-qf-Kisr Hepatitis C Hepatitis C is a liver [...] [facility]. What increases the risk? [...] Follow these instructions at home: Medicines Take airj-bmi-gekzyqt and prescription medicines only as told by your doctor. If you were given an antiviral medicine, take it as told by your doctor. Do not stop using the antiviral even if you start to feel better. Do not take any new medicines unless your doctor says that this is okay. This includes usas-iwo-bgwqlcg medicines and supplements. Activity Rest as needed. [...] not have soap and water, use hand signing agent. Cover any cuts or open sores on [...] provider. Document Revised: 01/17/2021 Document Reviewed: 01/17/2021 [employer] Patient Education 2022 [employer]. 01/26/2023 09:00:41 Exercising to Lose Weight Exercising [...] your health care provider or diet and food and nutrition supervisor (dietitian). This may include: ?Eating fewer calories. [...] provider. Document Revised: 04/28/2021 Document Reviewed: 04/28/2021 [employer] Patient Education 2022 [employer]. 01/26/2023 09:00:38 Cooking With Less Salt Cooking [...] salt. Use sodium-free baking soda when baking. Standard, braise, or roast foods to add flavor with less salt. Avoid adding salt to pasta, rice, or hot cereals. Drain and rinse canned vegetables, beans, and meat before use. Avoid adding salt when cooking sweets and desserts. Cook with low-sodium ingredients. What foods are high in sodium? Vegetables Regular canned vegetables (not low-sodium or reduced-sodium). Sauerkraut, pickled vegetables, and relishes. Olives. Central African fries. Onion rings. Regular canned tomato sauce [...] Soy milk. Yogurt. Low-sodium cheeses, such as Cuban, Larue Teodoro, mozzarella, and ricotta. Sherbet or ice [...] foods you can pair it with. Herbs Bourbon leaves Soups, meat and vegetable dishes, and spaghetti sauce. Basil Yemeni dishes, soups, pasta, and fish dishes. Cilantro Meat, poultry, and vegetable dishes. [place] powder Marinades and Nicaraguan dishes. Chives Salad dressings and potato dishes. Cumin Nicaraguan dishes, couscous, and meat dishes. Dill Fish dishes, sauces, and salads. Fennel Meat and vegetable dishes, breads, and cookies. Garlic (do not use garlic salt) Yemeni dishes, meat dishes, salad dressings, and sauces. Marjoram Soups, potato dishes, and meat dishes. Oregano Pizza and spaghetti sauce. Parsley Salads, soups, pasta, and meat dishes. Vanita Yemeni dishes, salad dressings, soups, and red meats. [...] provider. Document Revised: 02/22/2020 Document Reviewed: 02/22/2020 [employer] Patient Education 2022 [employer]. 01/26/2023 09:00:36 BMI for Adults BMI for [...] numbers. This can be done either in Indonesian (U.S[place] or metric measurements. Note that charts and online BMI calculators are available to help you find your BMI quickly and easily without having to do these calculations yourself. To calculate your BMI in Indonesian (U.S.) measurements: 1.Measure your weight in pounds [...] Centers for Disease Control and Prevention: www.cdc.gov [place] Heart Association: www.heart.org National Heart, Lung, and Blood [place]: www.nhlbi.nih.gov Summary Body mass index (BMI) is a number that is calculated from a person's weight and height. BMI may help estimate how much of a person's weight is composed of fat. BMI can help identify thosewho may be at higher risk for certain medical problems. BMI can be measured using Indonesian measurements or metric measurements. BMI charts are used to identify whether you are underweight, normal weight, overweight, or obese. This information is not intended to replace advice given to you by your health care provider. Make sure you discuss any questions you have with your health care provider. Document Revised: 11/23/2019 Document Reviewed: 09/30/2019 [employer] Patient Education 2022 [employer]. [facility] 10-24-2023 Evaluation + [...] Appointments Appointment Date:01/26/2023 08:00:00 AM Scheduled Provider: Location:[facility] Appointment Type: Medicare Wellness Subsequent Appointment Date:03/12/2023 08:00:00 AM Scheduled Provider:Linda Solorio CNP [facility] Appointment Type:BADH Follow Up Appointment Date:03/20/2023 09:00:00 AM Scheduled Provider:Christopher WELLS DO, FAAFP Location:[facility] Appointment Type: Open [facility] Scheduled Tests Laboratory* HgbA1c 03/27/22 * HgbA1c 06/25/22 [facility]10-23-2023 Evaluation note* Encounter Date Diagnosis Assessment [...] understands and is agreement with that plan. [employer] Other 10-11-2023 NoteMicrobiology PROCEDURE: Wound Culture [R1] [...] Locations R1: This test was performed at: [facility], [address] [place] [address], [address] , , [facility]ufbbwK[facility] SpringfieldComment on above:Performed By: #### [id number] #### [facility] [address] [place] [address] [id number] Evaluation note* Encounter Date Diagnosis Assessment Notes [...] to see her back in 2 months. [employer] Other 08-21-2023 Evaluation note* Encounter Date Diagnosis [...] call us with any issues or concerns. [employer] Other 06-28-2023 Hospital Discharge instructions Patient Education [...] oral rehydration solution (ORS). This is an vcqi-rzr-gwjfnbx medicine that helps return your body to [...] drinks, sports drinks, and soda. Eat bland, vros-tn-cxusyk foods in small amounts as you are able. These foods include bananas, applesauce, rice, lean meats, toast, and crackers. Avoid alcohol. Avoid spicy or fatty foods. Medicines Take gvjo-tdo-fazmbdb and prescription medicines only as told by your health care provider. If you were prescribed an antibiotic medicine, take it as told by your health care provider. Do notstop using the antibiotic even if you start to feel better. General instructions Wash your hands often using soap and water. If soap and water are not available, use a hand signing agent. Others in the household should wash their [...] soap and water are not available, usehand signing agent. Contact a health care provider if your diarrhea gets worse or you have new symptoms. Get help right away if you have signs of dehydration. This information is not intended to replace advice given to you by your health care provider. Make sure you discuss any questions you have with your health care provider. Document Revised: 09/11/2021 Document Reviewed: 09/11/2021 [employer] Patient Education 2022 [employer]. 09/10/2022 07:52:51 High-Fiber Eating Plan High-Fiber Eating [...] Bulgur wheat. Millet. Quinoa. Bran muffins. Popcorn. [place] wafer crackers. Meats and other proteins [place] beans, kidney beans, and chase beans. Soybeans. [...] Cream cheese. Sour cream. Fats and oils Montegut. Beverages Soft drinks. Other foods Cakes and [...] provider. Document Revised: 07/05/2020 Document Reviewed: 07/05/2020 [employer] Patient Education 2022 [employer]. Follow Up Care 06/11/2022 09:32:08 With:Linda Solorio CNP Address: When:6 months [facility] 03-29-2023 Hospital Discharge [...] per serving. Talk with a diet and food and nutrition supervisor (dietitian) if you have questions about specific [...] Bulgur wheat. Millet. Quinoa. Bran muffins. Popcorn. [place] wafer crackers. Meats and other proteins [place], kidney, and chase beans. Soybeans. Split peas. [...] Cream cheese. Sour cream. Fats and oils Montegut. Beverages Soft drinks. Other foods Cakes and [...] 03/02/2006 Document Revised: 01/04/2018 Document Reviewed: 01/04/2018 [employer] Patient Education 2020 [employer]. 06/11/2022 09:15:20 Hemorrhoids Hemorrhoids Hemorrhoids are swollen [...] 3 times a day. General instructions Take dspo-ukn-shjilel and prescription medicines only as told by [...] 02/27/2001 Document Revised: 07/29/2019 Document Reviewed: 07/22/2018 [employer] Patient Education 2020 [employer] 06/11/2022 09:15:19 Colon Polyps Colon Polyps [...] 11/26/2004 Document Revised: 06/17/2018 Document Reviewed: 06/17/2018 [employer] Patient Education [place]. Follow Up Care 06/09/2022 16:22:13 With:Linda Solorio CNP Address: When:3 months [facility] [id number] Note [id number]:127[facility] 05-05-2022 Evaluation note* Encounter Date Diagnosis Assessment Notes Treatment Notes Treatment Clinical Notes Apr, Peripheral vascular disease, unspecified (ICD-10 - I73.9) Apr, Other specified postprocedural states (ICD-10 - Z98.890) Apr, Other Peripheral arterial occlusive disease She has a good clinical outcome. I will see her back in 6 months with ABIs on that day. She will continue her current medical regimen. [employer] Other 01-24-2023 Evaluation note* Encounter Date Diagnosis Assessment Notes Treatment Notes Treatment Clinical Notes Mar, Post-op pain (ICD-10 - G89.18) [employer] Other 01-16-2023 Evaluation + Plan note Diagnostic Tests Pending * PTH Intact 03/31/22 * Immunofixation Serum 03/31/22 * Immunofixation, Urine 03/31/22 * C3 Complement 03/31/22 * C4 Complement 03/31/22 * Free K+L Lt Chains,Qn,S 03/31/22 Future Scheduled Tests Laboratory* HgbA1c 03/27/22 * HgbA1c 06/25/22 [facility]01-16-2023 Evaluation note* Encounter Date Diagnosis Assessment [...] of both lower extremities (ICD-10 - I73.9) [employer] Other 01-12-2023 Evaluation + Plan note Future Scheduled Tests Laboratory* HgbA1c 03/27/22 * HgbA1c 06/25/22 [facility]11-14-2022 Evaluation note* Encounter Date Diagnosis Assessment [...] in 2 months time with the ABIs. [employer] Other Evaluation + Plan note Future Appointments Appointment Date:08/27/2021 09:30:00 AM Scheduled Provider: Location:.[facility] Appointment Type:DM Diabetes Initial evs tech 59 (F Appointment Date:10/16/2021 01:00:00 PM Scheduled Provider: [facility]DM [facility] () [facility] Evaluation + Plan note Future Appointments Appointment Date:10/15/2021 09:00:00 AM Scheduled Provider: Location:.DIETARY Appointment Type:DM Diabetes Group () Appointment Date:10/28/2021 09:45:00 AM Scheduled Provider:Charis Daniel MD Location[facility] Appointment Type:Vascular New Patient () Appointment Date:12/16/2021 09:40:00 AM Scheduled Provider:Christopher WELLS DO, FAAFP Location:[facility] Appointment Type: Open Future Scheduled Tests Laboratory* HgbA1c 12/25/21 * HgbA1c 03/27/22 * HgbA1c 06/25/22 Radiology* US PVR Lower EXT Complete Bilat 09/24/21 [facility] Future Appointments Appointment Date:10/15/2021 09:00:00 AM Scheduled Provider: [facility] Type:DM Diabetes Group (FT) Appointment Date:10/28/2021 09:45:00 AM Scheduled Provider:Charis Daniel MD Location[facility] Appointment Type:Vascular New Patient (FT) Appointment Date:12/16/2021 09:40:00 AM Scheduled Provider:Christopher WELLS DO, FAAFP Location:[facility] Appointment Type:FM Open Future Scheduled Tests Laboratory* HgbA1c 12/25/21 * HgbA1c 03/27/22 * HgbA1c 06/25/22 [facility] Future Appointments Appointment Date:12/16/2021 09:40:00 AM Scheduled Provider:Christopher WELLS DO, FAAFP Location:[facility] Appointment Type:FM Open Appointment Date:01/02/2022 01:00:00 PM Scheduled Provider: [facility] Type:DM Diabetes Group (FT) Future Scheduled Tests Laboratory* HgbA1c 12/25/21 * HgbA1c 03/27/22 * HgbA1c 06/25/22 Radiology* US LE Venous Duplex Insufficiency Bilat 10/28/21 * CTA Abd Aorto-bilat/ iliofemoral runoff 10/28/21 [facility] Future Appointments Appointment Date:12/16/2021 09:40:00 AM Scheduled Provider:Christopher WELLS DO, FAAFP Location:[facility] Appointment Type:FM Open Appointment Date:01/02/2022 01:00:00 PM Scheduled Provider: [facility] Type:DM Diabetes Group (FT) Appointment Date:02/24/2022 09:00:00 AM Scheduled Provider:Charis Daniel MD Location[facility] Appointment Type:Vascular Follow Up (FT) Future Scheduled Tests Laboratory* HgbA1c 12/25/21 * HgbA1c 03/27/22 * HgbA1c 06/25/22 [facility] Future Appointments Appointment Date:02/24/2022 09:00:00 AM Scheduled Provider:Charis Daniel MD Location[facility] Appointment Type:Vascular Follow Up (FT) Future Scheduled Tests Laboratory* HgbA1c 12/25/21 * HgbA1c 03/27/22 * HgbA1c 06/25/22 [facility] Future Appointments Appointment Date:02/24/2022 09:00:00 AM Scheduled Provider:Charis Daniel MD [facility] Type:Vascular Follow Up (FT) Future Scheduled Tests Laboratory* HgbA1c 03/27/22 * HgbA1c 06/25/22 [facility] Future Appointments Appointment Date:05/21/2022 01:05:00 PM Scheduled Provider: Location:[facility] Appointment Type:Surgery FT Diagnostic Tests Pending * O & P Exam, Routine 05/08/22 * Giardia lamblia, Direct Detection EIA 05/08/22 Future Scheduled Tests Laboratory* HgbA1c 03/27/22 * HgbA1c 06/25/22 [facility] Future Appointments Appointment Date:09/10/2022 08:00:00 AM Scheduled Provider:Linda Solorio CNP Location[place] Appointment Type:BAD Follow Up Future Scheduled Tests Laboratory* HgbA1c 03/27/22 * HgbA1c 06/25/22 [facility] Evaluation + Plan note Future Appointments Appointment Date:03/12/2023 08:00:00 AM Scheduled Provider:Linda Solorio CNP [place] Appointment Type:BAD Follow Up Future Scheduled Tests Laboratory* HgbA1c 03/27/22 * HgbA1c 06/25/22 [facility] Evaluation + Plan note Future Appointments Appointment Date:12/18/2022 08:20:00 AM Scheduled Provider:Christopher WELLS DO, FAAFP [place] [employer] Appointment Type: Open Appointment Date:01/26/2023 08:00:00 AM Scheduled Provider: Location:[facility] Appointment Type: Medicare Wellness Subsequent Appointment Date:03/12/2023 08:00:00 AM Scheduled Provider:Linda Solorio CNP Location:[facility] Appointment Type:BAD Follow Up Future Scheduled Tests Laboratory* HgbA1c 03/27/22 * HgbA1c 06/25/22 [facility] Future Appointments Appointment Date:01/06/2023 08:30:00 AM Scheduled Provider:[facility] - New (FT) Appointment Date:01/26/2023 08:00:00 AM Scheduled Provider: Location:[facility] Appointment Type: Medicare Wellness Subsequent Appointment Date:03/12/2023 08:00:00 AM Scheduled Provider:Linda Solorio CNP Location:[facility] Appointment Type:BAD Follow Up Appointment Date:03/20/2023 09:00:00 AM Scheduled Provider:Christopher WELLS DO, FAAFP Location:[facility] Appointment Type: Open Future Scheduled Tests Laboratory* HgbA1c 03/27/22 * HgbA1c 06/25/22 [facility] Future Appointments Appointment Date:01/19/2023 09:30:00 AM Scheduled Provider: [facility]ointment Type:WC Assessment (FT) Appointment Date:01/26/2023 08:00:00 AM Scheduled Provider: Location:[facility] Appointment Type: Medicare Wellness Subsequent Appointment Date:01/27/2023 02:00:00 PM Scheduled Provider:Denton Mares DPM [facility] Appointment Type:WC Follow Up Visit (FT) Appointment Date:02/02/2023 09:45:00 AM Scheduled Provider: [facility] Appointment Type:Surgery FT Appointment Date:02/17/2023 08:45:00 AM Scheduled Provider:Gary Cerda MD Location:[facility] Appointment Type:Pain Management - Follow Up (FT) Appointment Date:03/12/2023 08:00:00 AM Scheduled Provider:Linda Solorio CNP Location[place] Appointment Type:BAD Follow Up Appointment Date:03/20/2023 09:00:00 AM Scheduled Provider:Christopher WELLS DO, FAAFP Location:[facility] Appointment Type:FM Open Future Scheduled Tests Laboratory* HgbA1c 03/27/22 * HgbA1c 06/25/22 [facility] Future Appointments Appointment Date:01/26/2023 08:00:00 AM Scheduled Provider: Location:[facility] Appointment Type:FM Medicare Wellness Subsequent Appointment Date:01/27/2023 02:00:00 PM Scheduled Provider:Denton Mares DPM Location[facility] Appointment Type:WC Follow Up Visit (FT) Appointment Date:02/02/2023 09:45:00 AM Scheduled Provider: [facility] Appointment Type:Surgery FT Appointment Date:02/17/2023 08:45:00 AM Scheduled Provider:Gary Cerda MD [facility] Type:[facility] - Follow Up (FT) Appointment Date:03/12/2023 08:00:00 AM Scheduled Provider:Linda Solorio CNP Location[place] Appointment Type:BAD Follow Up Appointment Date:03/20/2023 09:00:00 AM Scheduled Provider:Christopher WELLS DO, FAAFP Location:[facility] Appointment Type:FM Open Future Scheduled Tests Laboratory* HgbA1c 03/27/22 * HgbA1c 06/25/22 [facility] Future Appointments Appointment Date:01/27/2023 02:00:00 PM Scheduled Provider:Denton Mares DPM [facility] Appointment Type:WC Follow Up Visit (FT) Appointment Date:02/02/2023 09:45:00 AM Scheduled Provider: [facility] Appointment Type:Surgery FT Appointment Date:02/17/2023 08:45:00 AM Scheduled Provider:Gary Cerda MD [facility] Appointment Type:Pain Management - Follow Up (FT) Appointment Date:03/12/2023 08:00:00 AM Scheduled Provider:Linda Solorio CNP Location[facility] Appointment Type:BAD Follow Up Appointment Date:03/20/2023 09:00:00 AM Scheduled Provider:Christopher WELLS DO, FAAFP Location:[facility] Appointment Type:FM Open Appointment Date:02/01/2024 08:00:00 AM Scheduled Provider: Location:[facility] Appointment Type:FM Medicare Wellness Subsequent Future Scheduled Tests Laboratory* HgbA1c 03/27/22 * HgbA1c 06/25/22 * HCV Antibody RFX to Quant PCR 01/26/23 [facility] Evaluation + Plan note Future Appointments Appointment Date:02/02/2023 09:45:00 AM Scheduled Provider: [facility] Appointment Type:Surgery FT Appointment Date:02/10/2023 02:30:00 PM Scheduled Provider:Denton Mares DPM [facility] Appointment Type:WC Follow Up Visit (FT) Appointment Date:02/17/2023 08:45:00 AM Scheduled Provider:Gary Cerda MD Location:[facility] Appointment Type:Pain Management - Follow Up (FT) Appointment Date:03/12/2023 08:00:00 AM Scheduled Provider:Linda Solorio CNP Location[facility] Appointment Type:BADH Follow Up Appointment Date:03/20/2023 09:00:00 AM Scheduled Provider:Christopher WELLS DO, FAAFP Location:[facility] Appointment Type: Open Appointment Date:02/01/2024 08:00:00 AM Scheduled Provider: Location:[facility] Appointment Type:FM Medicare Wellness Subsequent Future Scheduled Tests Laboratory* HgbA1c 03/27/22 * HgbA1c 06/25/22 * HCV Antibody RFX to Quant PCR 01/26/23 [facility] Future Appointments Appointment Date:02/16/2023 01:45:00 PM Scheduled Provider: [facility] Appointment Type:WC Assessment (FT) Appointment Date:02/16/2023 02:15:00 PM Scheduled Provider: [facility] Appointment Type:Surgery FT Appointment Date:02/24/2023 02:00:00 PM Scheduled Provider:Denton Mares DPM [facility] Appointment Type:WC Follow Up Visit (FT) Appointment Date:03/02/2023 08:15:00 AM Scheduled Provider:Mara Pastor PA-C Location:[facility] Appointment Type:Pain Management - Follow Up (FT) Appointment Date:03/02/2023 09:40:00 AM Scheduled Provider:Linda Solorio CNP Location[facility] Appointment Type:BAD Follow Up Appointment Date:03/20/2023 09:00:00 AM Scheduled Provider:Christopher WELLS DO, FAAFP Location:[facility] Appointment Type:FM Open Appointment Date:02/01/2024 08:00:00 AM Scheduled Provider: Location:[facility] Appointment Type:FM Medicare Wellness Subsequent Future Scheduled Tests Laboratory* HgbA1c 03/27/22 * HgbA1c 06/25/22 * HCV Antibody RFX to Quant PCR 01/26/23 [facility] Future Appointments Appointment Date:02/24/2023 02:00:00 PM Scheduled Provider:Denton Mares DPM [facility] Appointment Type:WC Follow Up Visit (FT) Appointment Date:03/02/2023 09:40:00 AM Scheduled Provider:Linda Solorio CNP Location[facility] Appointment Type:[facility] Follow Up Appointment Date:03/04/2023 08:45:00 AM Scheduled Provider: [facility] Appointment Type:Surgery FT Appointment Date:03/20/2023 09:00:00 AM Scheduled Provider:Christopher WELLS DO, FAAFP Location:[facility] Appointment Type:FM Open Appointment Date:03/23/2023 08:30:00 AM Scheduled Provider:Mara Pastor PA-C Location:[facility] Appointment Type:Pain Management - Follow Up (FT) Appointment Date:02/01/2024 08:00:00 AM Scheduled Provider: Location:[facility] Appointment Type:FM Medicare Wellness Subsequent Future Scheduled Tests Laboratory* HgbA1c 03/27/22 * HgbA1c 06/25/22 * HCV Antibody RFX to Quant PCR 01/26/23 [facility] Future Appointments Appointment Date:03/03/2023 02:30:00 PM Scheduled Provider:Denton Mares DPM [facility] Appointment Type:WC Follow Up Visit (FT) Appointment Date:03/04/2023 08:45:00 AM Scheduled Provider: [facility] Appointment Type:Surgery FT Appointment Date:03/20/2023 09:00:00 AM Scheduled Provider:Christopher WELLS DO, FAAFP Location:[facility] Appointment Type:FM Open Appointment Date:03/23/2023 08:30:00 AM Scheduled Provider:Mara Pastor PA-C [facility] [place] Appointment Type:Pain Management - Follow Up (FT) Appointment Date:02/01/2024 08:00:00 AM Scheduled Provider: Location:[facility] Appointment Type: Medicare Wellness Subsequent Future Scheduled Tests Laboratory* HgbA1c 03/27/22 * HgbA1c 06/25/22 * HCV Antibody RFX to Quant PCR 01/26/23 [facility] Evaluation + Plan note Future Appointments Appointment Date:03/04/2023 08:45:00 AM Scheduled Provider: Location:[facility] Appointment Type:Surgery FT Appointment Date:03/20/2023 09:00:00 AM Scheduled Provider:Christopher WELLS DO, FAAFP Location:[facility] Appointment Type:FM Open Appointment Date:03/23/2023 08:30:00 AM Scheduled Provider:Mara Pastor PA-C [facility] Appointment Type:Pain Management - Follow Up (FT) Appointment Date:02/01/2024 08:00:00 AM Scheduled Provider: Location:[facility] Appointment Type: Medicare Wellness Subsequent Future Scheduled Tests Laboratory* HgbA1c 03/27/22 * HgbA1c 06/25/22 * HCV Antibody RFX to Quant PCR 01/26/23 [facility] + Plan note Future Appointments Appointment Date:03/23/2023 08:30:00 AM Scheduled Provider:Mara Patsor PA-C [facility] Appointment Type:Pain Management - Follow Up (FT) Appointment Date:07/28/2023 08:00:00 AM Scheduled Provider:Christopher WELLS DO, FAAFP Location:[facility] Appointment Type:FM Open Appointment Date:02/01/2024 08:00:00 AM Scheduled Provider: Location:[facility] Appointment Type: Medicare Wellness Subsequent Future Scheduled Tests Laboratory* HgbA1c 1/12/23 * HgbA1c 06/25/22 * HCV Antibody RFX to Quant PCR 01/26/23 [facility] Evaluation noteNo assessment information available [facility] Work Phone: Evaluation noteNo InformationNort [email or web address] Other Evaluation note* Diagnosis Atherosclerosis of chipewwa coronary artery of chipeww[place] heart without angina pectoris Status post coronary angioplasty Postsurgical percutaneous transluminal coronary angioplasty status Essential hypertension Unspecified essential hypertension Hyperlipidemia, unspecified hyperlipidemia type PVD (peripheral vascular disease) ([facility]) Unspecified peripheral vascular disease Stage 3 chronic kidney disease, unspecified whether stage 3a or 3b CKD ([facility]) Sleep apnea, unspecified type documented in this encounter [facility] Work Phone: History general Narrative - [...] stent 3 STENTS Hospitalization History see above Localsensor Other Hiskphr general Narrative - Reported* Type Description Date [...] LEG ANGIOPLASTY 03/2022 Hospitalization History see above [facility]als[facility] Other Hospital course Narrative No data available for this section [facility] Hospital Discharge instructions No data available for this section [facility] Progress note No data available for this section [facility] Consultation (Routine) - Authorized Specialty Diagnoses / Procedures Referred By Fariha t Referred To Contact Cardiology Diagnoses Atherosclerosis of chipewwa coronary artery of chipewwa heart without angina pectoris Status post coronary angioplasty Essential hypertension Procedures Follow Up In Cardiology Fariha Guidry MD [address] [facility], [place] [address] [place] [id number] Fariha Guidry MD [facility] [facility], [place] [address] [place] [address] Referral ID Status Reason Start Date Expiration Date V isits Requested Visits Authorized [id number] Authorized 02/12/2023 02/12/2024 1 1 [facility] Work Phone: Chief Complaint * EVON [...] * 5. Diabetes, managed by endocrinology in [place]. A1c remains above target * 6. Hypertension completely under control. * 7. High-risk medication with Xarelto, so far well-tolerated. Takes baby aspirin twice weekly * 8. Stage III chronic kidney disease to be monitored closely * 9. Recent diagnosis of intermittent claudications and PAD followed by vascular surgery Dr. Fredy Kaplan, she is currently going through walking exercise program * Fariha Guidry MD, [facility] Summary Purpose Family History Relationship Condition Age [...] Provider Active [facility] Attending Provider Active Personal Lines Underwriter Relationship Specialty Start Date End Date Christopher Wells DO [address] [place]- [address] [place] [address] PCP - General 08/02/18 INFORMATION SOURCE (unrecogn ized section and content) DATE CREATED AUTHOR 01/16/2022 [facility] DATE CREATED AUTHOR AUTHOR'S ORGANIZ ATION 01/16/2022 [employer] DATE CREATED AUTHOR AUTHOR'S ORGANIZ ATION 09/19/2022 [facility] DATE CREATED AUTHOR AUTHOR'S ORGANIZ ATION 02/14/2023 [facility] DATE CREATED AUTHOR AUTHOR'S ORGANIZ ATION 02/28/2023 [facility] DATE CREATED AUTHOR AUTHOR'S ORGANIZ ATION 03/19/2023 [facility] EPIC DATE CREATED AUTHOR AUTHOR'S ORGANIZ ATION 04/12/2023 [facility] REASON FOR VISIT (unrecogniz ed [...] BE BASED ON THE PRIMARY CLINICAL RECORDS. [employer] [facility]. provides no warranty or guarantee of the accuracy or completeness of information in this document.
--- NOTE | 2023-06-01 07:54 | VEIN_ITS ---
Patient Name: GEOVANNY CORCORAN MR#: [id number] : 1950 Exam Date: 06/01/2023 Ordering Doctor: DR GOMEZ SHER M.D. RADIOLOGY REPORT PROCEDURE: [facility] EST L[facility]D [facility]IN CENTER - OFFICE VISIT FOLLOW UP COMPARISON: [facility] EST TD, 05/18/2023. [facility]. PROGRESS NOTES: The patient reports moderate pain of the medial thigh, medial right ankle and dorsal foot. The patient did not require oral analgesics. The patient has worn her compression stocking. The patient has partially compliant with exercise. Physical exam demonstrates multiple thrombosed varicose veins. In the area of skin discoloration and thickening is noted in the region the patient's pain medial right thigh likely related to injections. This likely will result in skin ulceration. Moderate subcutaneous edema of the right ankle and dorsal foot is consistent with a moderate thrombophlebitis related to the injections. No deep vein thrombus of the foot or ankle is observed. Review of the ultrasound performed the same day demonstrates occlusive thrombus extending throughout the treated right leg varicose veins. Two segments of deep vein thrombus identified in a single posterior tibial vein, far removed from the popliteal vein. These findings were discussed with the patient. She was made aware that she likely would develop a skin ulceration of the right thigh which should be treated with antibiotic ointment twice a day and a dressing which should be changed daily. The patient was asked to take 325 milligram enteric coated aspirin once per day for the next 2 weeks with a subsequent follow-up ultrasound. VEIN/[facility] EST LMTD IMPRESSION: 1. Successful ablation of treated right leg varicose veins 2. Two small segments of deep vein thrombus in a single right posterior tibial vein, removed from the popliteal vein 3. Area of skin thickening which will likely develop into ulceration measuring 2 x 3 cm medial right thigh PLAN: 325 milligram enteric coated aspirin once per day for the next 2 weeks Follow-up ultrasound in 2 weeks Nurse notes, history and physical were reviewed and confirmed, see attached forms. The nurse was present throughout the physical exam and consultation Dictated by: Gomez Sher MD on 06/01/2023 at 08:48 Approved by: Gomez Sher MD on 06/01/2023 at 08:51
--- NOTE | 2023-06-01 07:54 | VEIN_ITS ---
Patient Name: GEOVANNY CORCORAN MR#: [id number] : 1950 Exam Date: 06/01/2023 Ordering Doctor: DR GOMEZ SHER M.D. RADIOLOGY REPORT PROCEDURE: [facility] RT LMTD COMPARISON: [facility]T [facility]ENOUS RT LMTD, 04/07/2023. INDICATIONS: Phlebitis of superficial veins of right lower extremity I80.01 TECHNIQUE: Lower extremity freeman scale and Duplex Doppler evaluation of the deep venous system from the inguinal ligament through the calf veins. FINDINGS: REGION: Right lower extremity. THROMBI: Positive for DVT. Heat induced thrombus in multiple varicose veins in right leg. Thrombus is in two segments in one PTV. Distal segment is 2.4 cm. Mid segment is 1.9 cm. Thrombus extends into veins in foot. COMPRESSIBILITY: Non-compressible segments corresponding to thrombus FLOW: Areas of no flow corresponding to thrombus OTHER: No significant varicosities remain. CONCLUSION: Post ablation occlusion of treated right leg varicose veins 2 segments of deep vein thrombus in a single posterior tibial vein. The thrombus is far removed from the popliteal junction. Dictated by: Gomez Sher MD on 06/01/2023 at 08:29 Approved by: Gomez Sher MD on 06/01/2023 at 08:47
== END 2023-06-01 07:50 | disposition home or self-care (01) ==
LOC: VC 07:49
PROVIDERS: PCP Radiology Diagnostic Radiology; Visit Provider Radiology Diagnostic Radiology
DX: I80.01 Phlebitis and thrombophlebitis of superficial vessels of right lower extremity (principal)
CPT/HCPCS: 93971; G0463

== ENCOUNTER 2023-06-15 07:53 | Outpatient (OUT) | payer MEDICARE, BC, SELFPAY ==
--- NOTE | 2023-06-15 07:54 | VEIN_ITS ---
Patient Name: GEOVANNY CORCORAN MR#: [id number] : 1950 Exam Date: 06/15/2023 Ordering Doctor: DR AILIN JC M.D. RADIOLOGY REPORT PROCEDURE: [facility] RT L[facility]D COMPARISON: [facility] EX[facility]ENOUS RT LMTD, 06/01/2023. INDICATIONS: I80.01 Phlebitis of superficial veins of right lower extremity TECHNIQUE: Lower extremity freeman scale and Duplex Doppler evaluation of the deep venous system from the inguinal ligament through the calf veins. FINDINGS: REGION: Right lower extremity. THROMBI: Positive for DVT. Chemically induced thrombus in two segments of on PTV appear stable. Improvement of thrombus of GSV in right foot. COMPRESSIBILITY: Non-compressible segments corresponding to thrombus FLOW: Areas of no flow corresponding to thrombus OTHER: CONCLUSION: 1. Interval decrease in thrombus burden within dorsum of foot and posterior tibial vein. Patient will continue aspirin for another week. 2. Microfoam chemical ablation of left lower extremity can be performed next. Dictated by: Christopher Delvalle M.D. on 06/15/2023 at 08:15 Approved by: Christopher Delvalle M.D. on 06/15/2023 at 09:44
--- NOTE | 2023-06-15 07:54 | VEIN_ITS ---
Patient Name: GEOVANNY CORCORAN MR#: [id number] : 1950 Exam Date: 06/15/2023 Ordering Doctor: DR AILIN JC M.D. RADIOLOGY REPORT PROCEDURE: [facility] - OFFICE VISIT FOLLOW UP COMPARISON: [facility]T [facility] RT L[facility]D, 06/01/2023. [facility], 06/01/2023. PROGRESS NOTES: The patient reports improvement in leg symptoms. There has been interval reduction in varicosities. The patient has followed our recommendations to walk 20-30 minutes once or twice per day since the procedure. Physical exam demonstrates decrease in varicosities of the leg. Persistent varicosities are identified along the legs bilaterally. Review of the ultrasound performed the same day demonstrates occlusive thrombus extending throughout the treated vein(s), see separate report, consistent with a successful ablation. Decreasing thrombus within veins over dorsum of foot and within posterior tibial vein. The patient expressed a desire to proceed with treatment of remaining incompetent varicosities. The patient was informed that treatment was a process and would require 2-3 procedures/sessions. VEIN/[facility] EST LMTD IMPRESSION: 1. Interval decrease in thrombus burden within veins within dorsum of right foot and within posterior tibial vein. PLAN: 1. Patient will continue on aspirin for an additional week. 2. 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 Nurse notes, history and physical were reviewed and confirmed, see attached forms. The nurse was present throughout the physical exam and consultation Dictated by: Christopher Delvalle M.D. on 06/15/2023 at 09:44 Approved by: Christopher Delvalle M.D. on 06/15/2023 at 09:47
--- OUTSIDE RECORDS SUMMARY | 2023-06-15 08:06 | XMS_ITS | CCD ---
Author Organization [facility] Care Team Providers Care Show Card Writer Name Role Phone Christopher Wells Unavailable Unavailable Unavailable Christopher WELLS Primary Care Physician Bertha Swanson Unavailable Unavailable Unavailable Unavailable Jairo, Dr. Fariha Norwood Attending Carolina vailable Guidry, [...] Unavailable DO Christopher Wells Primary Care Provider [phone] MD Miguel Membreno Attending Provider [phone] Christopher Wells Primary Care Unavailable Guidry, Dr. Fariha Norwood Attending Carolina vailable DO Christopher Wells Primary Care Provider MD Miguel Membreno Attending Provider [phone] [facility] Attending Provider Christopher Wells DO Primary Care Provider FARIHA GUIDRY Attending Unavailable CHRISTOPHER WELLS Primary Care Unavailable DO Christopher Wells Primary Care Provider [phone] MD Miguel Membreno Attending Provider Russell, Christopher A Primary Care Unavailable Renetta Barahona Attending Unavailable Renetta Barahona Admitting Unavailable Kapjanna, Christopher Montenegro Primary Care Unavailable Buehrer, Miguel Admitting Unavailable Buehrer, Miguel Attending Unavailable Buehrer, Miguel Attending Unavailable Buehrer, Miguel Admitting Unavailable Kaple, Christopher A Primary Care Unavailable Buehrer, Miguel Attending Unavailable Buehrer, Miguel Admitting Unavailable Kaple, Christopher A Primary Care Unavailable Buehrer, Miguel Attending Unavailable Buehrer, Miguel Admitting Unavailable Kapjanna, Christopher A Primary Care Unavailable DOLCE, DENTON Gomez Attending Unavailable DOLCE, DENTON Gomez Attending Unavailable Dolce, Denton Gomez Attending Unavailable Dolce, Denton Gomez Attending Unavailable Dolce, Denton oGmez Attending Unavailable Wilmerding, Catrachito D Referring Unavailable Wilmerding, Catrachito D Attending Unavailable Wilmerding, Catrachito D Admitting Unavailable Wilmerding, Catrachito D Referring Unavailable Wilmerding, Catrachito D Attending Unavailable Wilmerding, Catrachito D Admitting Unavailable Guidry, Fried Admitting Unavailable Guidry, Fried Attending Unavailable Akkina, Klaus Attending Unavailable Akkina, Klaus Admitting Unavailable Akkina, Klaus Admitting Unavailable Akkina, Klaus Attending Unavailable Dolce, Denton Gomez Attending Unavailable KAPLE, Christopher Montenegro Attending Unavailable KAPLE, Christopher Montenegro Attending Unavailable KAPLE, Christopher Montenegro Attending Unavailable KAPLE, Christopher Montenegro Attending Unavailable KAPJANNA, Christopher Montenegro Attending Unavailable KAPJANNA, Christopher Montenegro Attending Unavailable MD Gary Cerda Admitting Unavailable Gary Cerda Referring Unavailable Gary Cerda Attending Unavailable Nicola Tapia Referring Unavailable Nicola Tapia Attending Unavailable DO Nicola Tapia Admitting Unavailabl e Christopher WELLS Attending Unavailable KAPLE, Christopher A Admitting Unavailable KAPLE, Christopher A Referring Unavailable KAPChristopher BEJARANO Admitting Unavailable Linda Solorio Attending Unavailable Linda Solorio Attending Unavailable Dolce, Denton Gomez Attending Unavailable Dolce, Denton Gomez Attending Unavailable Dolce, Denton Gomez Attending Unavailable DolDenton garza Referring Unavailable MD Gary Cerda Admitting Unavailable Gary Cerda Attending Unavailable Maryann Catrachito D Referring Unavailable Mara Pastor Attending Unavailable Christopher WELLS Referring Unavailable TAB Pastor Admitting UnavailDenton Bledsoe Attending Unavailable Denton Mares Admitting Unavailable Christopher WELLS Admitting Unavailable Christopher WELLS Attending Unavailable Malvin Gupta Attending Unavailable Allergies Allergy Classification Reported Allergen(s) Allergy Type Date of Onset Reaction(s) Facility (20 sources) Doxazosin; Translations: [Cardura] Drug Allergy 023 Unknown (qualifier value), Diarrhea [facility] 250 DO Work Phone: (20 sources) hydroCHLOROthiazide; Translations: [hydroCHLOROthiazide CAPS] Drug Allergy 023 Diarrhea [facility] 250 DO Work Phone: (20 sources) hydroCHLOROthiazide / Spironolactone; Translations: [Aldactazide] Drug Allergy 023 Weal (disorder), Diarrhea [place] [address] DO Work Phone: (20 sources) Lisinopril; Translations: [Zestril] Drug Allergy 023 Diarrhea (finding), Diarrhea [facility] 250 DO Work Phone: (20 sources) metFORMIN; Translations: [Glucophage] Drug Allergy 023 Diarrhea [facility] 250 DO Work Phone: (20 sources) valsartan; Translations: [Diovan] Drug Allergy 023 Unknown (qualifier value), Diarrhea [facility] 250 DO Work Phone: (20 sources) hydroCHLOROthiazide / Lisinopril; Translations: [hydrochlorothiazide-l isinopril] Drug Allergy Diarrhea (finding) [facility] (20 sources) Terazosin; Translations: [terazosin] Drug Allergy 019 Unknown, Unknown Reaction [facility] (9 sources) metFORMIN Drug Allergy Unknown [employer] Other (8 sources) Doxazosin; Translations: [DOXAZOSIN] Drug Allergy Unknown Reaction [facility] (7 sources) hydroCHLOROthiazide; Translations: [HYDROCHLOROTHIAZIDE] Drug Allergy Unknown Reaction, Diarrhea [facility] (7 sources) Lisinopril; Translations: [LISINOPRIL] Drug Allergy Unknown Reaction [facility] (7 sources) metFORMIN; Translations: [METFORMIN] Drug Allergy Unknown Reaction, Diarrhea [facility] (6 sources) pioglitazone; Translations: [pioglitazone] Drug Allergy Unknown Reaction [facility] (6 sources) Spironolactone; Translations: [spironolactone] Drug Allergy Unknown Reaction, Hives [facility] (7 sources) valsartan; Translations: [VALSARTAN] Drug Allergy Unknown Reaction [facility] (1 source) SPIRONOLACTON-HYDROCHL OROTHIAZ; Translations: [SPIRONOLACTON-HYDROCH LOROTHIAZ] Propensity to adverse reactions to drug (disorder) [place] [address] Repository (1 source) Terazosin Drug Allergy [facility] Repository (1 source) Lisinopril; Translations: [Prinivil] Drug Allergy [facility] Repository Medications Current Medications Medication Drug Class(es) Dates Sig (Normalized) Sig (Original) acetaminophen 325 mg / HYDROcodone bitartrate 5 mg oral tablet (12 sources) Opioid Agonist Start: 04-08-2022 take 1 tablet by mouth every six hours HYDROcodone-Aceta minophen 5-325 MG 1 tablet as needed Orally every 6 hrs for 3 days Mar, Active Start: 04-07-2022 End: 02-18-2023 take 1 tablet by mouth every four hours Hydrocodone-Acetaminophen Discontinued 1 TAB PO Q4H April 07, 2022 February 18, 2023 10:26am Albuterol (Eqv-ProAir HFA) 90 mcg/inh inhalation aerosol (1 source) Start: 04-10-2023 take 2 puff(s) by inhalation every six hours Albuterol (Eqv-ProAir HFA) 90 mcg/inh inhalation aerosol 2 puff(s), Inhalation, q6hr Wheezing, 8.5 gm, Refill(s) 0, [facility] #[id number], 165, cm, 04/10/23 9:26:00 EST, Height/Length Dosing, 96.9, kg, 04/10/23 9:26:00 EST, Weight Dosing Start Date: 04/10/23 Status: Ordered amLODIPine 5 mg oral tablet (20 sources) Dihydropyridine Calcium Channel Larisa Start: 05-08-2021 take 5 mg by mouth once daily Amlodipine Active 5 MG PO Daily April 07, 2022 1:00am amLODIPine Besyl ate Active Aspir-81 81 MG [...] 81 MG PO Twice a Week August 06, 2018 12:00am Takes on Thursday and take 1 tablet [...] day(s), # 90 tab(s), Refills(s) 3, Pharmacy: [facility] #[id number], 166, cm, 10/28/21 9:59:00 EDT, Height/Length Dosing, 97.4, kg, 10/28/21 9:59:00 EDT, Weight Dosing Start Date: 10/28/21 Stop Date: 10/23/22 Status: Ordered Start: 04-26-2015 End: 02-12-2023 take 20 mg by mouth once daily in the evening Atorvastatin Active 20 MG PO Every evening August 06, 2018 12:00am azithromycin 250 mg Tab 5-day Dose Pack (Z-Sanjay) (1 source) Start: 04-10-2023 End: 04-15-2023 azithromycin 250 mg Tab 5-day Dose Pack (Z-Sanjay) = 1 packet(s), Oral, As Directed, as directed on package labeling, X 5 day(s), # 6 tab(s), Refills(s) 0, [facility]acy: [facility] #[id number], 165, cm, 04/10/23 9:26:00 EST, Height/Length Dosing, [...] (20 sources) Thiazide-like Diuretic Start: 08-06-2018 take 25 mg by mouth once daily in the evening Chlorthalidone Active 25 MG PO Every evening August 06, 2018 12:00am cilostazol 50 mg oral tablet (10 sources) Phosphodiesterase 3 Inhibitor Start: 10-08-2021 take 1 tablet by mouth twice daily Pletal 50 mg oral tablet 50 mg = 1 tab(s), Oral, BID, # 60 tab(s), Refills(s) 5, Pharmacy: [facility] #[id number], 165, cm, 09/24/21 8:39:00 EDT, Height/Length Dosing, [...] 20 cap(s), Refills(s) 1, Pharmacy: [facility] #[id number], 165, cm, 12/18/22 8:28:00 EDT, Height/Length Dosing, [...] EA, 0, Dx: E11.9 Directions: Test BID, [facility], Supply, 166, cm, 05/10/21 8:27:00 EST, Height/Length Dosing, 92.8, kg, 05/10/21 8:27:00 EST, Weight Dosing Start Date: 05/10/21 Status: Ordered 3 ml insulin degludec 100 unt/ml pen injector (20 sources) Insulin Analog Start: 08-22-2022 inject 50 [IU] by subcutaneous injection once daily Tresiba FlexTouch 100 units/mL subcutaneous solution 50 unit(s), SubCutaneous, Daily, Dx E11.65, # 5 EA, Refills(s) 11, Pharmacy: [facility] #[id number], 165, cm, 06/11/22 9:10:00 EDT, Height/Length Dosing, 97.6, kg, 06/11/22 9:10:00 EDT, Weight Dosing Start Date: 08/22/22 Status: Ordered Start: 08-22-2022 inject 30 [IU] by griffin bcutaneous injection twice daily Tresiba FlexTouch 100 units/mL subcutaneous solution 30 unit(s), SubCutaneous, BID, Dx E11.65, # 5 EA, Refills(s) 11, Pharmacy: [facility] #[id number], 165, cm, 06/11/22 9:10:00 EDT, Height/Length Dosing, 97.6, kg, 06/11/22 9:10:00 EDT, Weight Dosing Start Date: 08/22/22 Status: Ordered Start: 09-24-2021 inject 30 [IU] by griffin bcutaneous injection twice daily Tresiba FlexTouch 100 units/mL subcutaneous solution 30 unit(s), SubCutaneous, BID, Dx E11.65, # 5 EA, Refills(s) 11, Pharmacy: [facility] [facility], 165, cm, 09/24/21 8:39:00 EDT, Height/Length Dosing, 95.3, kg, 09/24/21 8:39:00 EDT, Weight Dosing Start Date: 09/24/21 Status: Ordered Start: 05-10-2021 inject 50 [IU] by griffin bcutaneous injection at bedtime Tresiba FlexTouch 100 units/mL subcutaneous solution 50 unit(s), SubCutaneous, Bedtime, Dx E11.65, # 5 EA, Refills(s) 11, Pharmacy: [facility] [address] [facility], 166, cm, 05/10/21 8:27:00 EST, Height/Length Dosing, 92.8, kg, 05/10/21 8:27:00 EST, Weight Dosing Start Date: 05/10/21 Status: Ordered Start: 08-06-2018 End: 06-09-2023 inject 50 [IU] by subcutaneous injection once daily in the evening Insulin Degludec Discontinued 50 UNIT SUBCUT Every evening August 06, 2018 12:00am June 09, 2023 9:41am Start: 08-06-2018 inject 50 [IU] by griffin [...] 0 Refills: 0 Ordered: 08-May-2021 DO Active Insulin Degludec (Tresiba Flextouch U-100) 100 unit/mL (3 mL) insulin pen (1 source) Start: 06-09-2023 Insulin Deglud ec (Tresiba Flextouch U-100) 100 unit/mL (3 mL) insulin pen Active 50 UNIT SUBCUT Twice daily June 09, 2023 12:00am 3 ml insulin lispro-aabc 100 unt/ml pen [...] Kwikpen U-100 Insulin) 100 unit/mL insulin pen (2 sources) Start: 02-18-2023 Insulin Lispro -Aabc (Lyumjev Kwikpen U-100 Insulin) 100 unit/mL insulin pen Active SUBCUT February 18, 2023 1:00am Start: 02-18-2023 Insulin Lispro -Aabc (Lyumjev Kwikpen U-100 Insulin) 100 unit/mL insulin pen Active SUBCUT February 18, 2023 12:00am losartan potassium 50 mg oral tablet (20 sources) Angiotensin 2 Receptor Larisa Start: 08-06-2018 take 50 mg by mouth once daily in the evening Losartan Active 50 MG PO Every evening August 06, 2018 12:00am Start: 04-26-2015 take 50 mg by mouth twice tangela y Losartan Active 50 MG PO Twice daily August 06, 2018 12:00am Lyumjev KwikPen (5 sources) Start: 05-05-2022 Lyumjev KwikPe n Refills(s) 0 Start Date: 05/05/22 Status: Ordered 24 hr metoprolol succinate 50 mg extended release oral tablet (20 sources) beta-Adrenergic Larisa Start: 04-07-2022 Metoprolol Succinate Active MG PO April 07, 2022 1:00am Start: 01-13-2020 take 50 mg by mouth once daily Metoprolol Succinate Active 50 MG PO Daily April 07, 2022 1:00am Start: 01-13-2020 take 1 mg by mouth once daily Metoprolol succinate 50 mg ER Tablet mg, Oral, Daily, Refills(s) 0 Start Date: 01/13/20 Status: Ordered Metoprolol Succi pina Active Multi Vitamins oral tablet (20 sources) Start: 11-05-2017 take 1 tablet by mouth at bedtime Multi Vitamins oral tablet 1 tab(s), Oral, Bedtime, Refill(s) 0, Prophylaxis Start Date: 11/05/17 Status: Ordered Start: 11-05-2017 take 1 tablet by mouth at bedt fátima Multi Vitamins oral tablet 1 tab(s), Oral, Bedtime, Refill(s) 0 Start Date: 11/05/17 Status: Ordered Multivitamin preparation (11 sources) Start: 02-18-2023 take 1 tablet by mouth once daily Multivitamin Active 1 TAB PO Daily February 18, 2023 1:00am Start: 02-18-2023 take 1 tablet by [facility] once daily Multivitamin Active 1 TAB PO Daily February 18, 2023 12:00am Multivitamin Act kana multivitamin tablet (1 source) take 1 tablet by mouth once daily multivitamin tablet Take 1 tablet by mouth once daily. 0 Active nitroglycerin 0.4 mg sublingual tablet (20 sources) Nitrate Vasodilator Start: 04-11-19 Nitroglycerin Active 0.4 MG SUBLINGUAL every 5 to 15 minutes August 11, 2018 12:00am until response; do not exceed 3 doses per episode Nitrostat 0.4 MG Sublingual Active polyethylene glycol 3350 962248 mg / potassium chloride 1480 mg / sodium bicarbonate 5720 mg / sodium chloride 52896 mg powder for oral solution (1 source) Osmotic Laxative Start: 05-05-2022 NuLYTELY Flannery oral powder for reconstitution See Instructions, 1 EA, Refill(s) 0, Prior to colonoscopy., [facility] #[id number], 165, cm, 05/05/22 13:40:00 EST, Height/Length Dosing, 95.2, kg, 05/05/22 13:40:00 EST, Weight Dosing Start Date: 05/05/22 Status: Ordered Potassimin (9 sources) Potassimin Activ e potassium chloride 10 meq extended release oral capsule (20 sources) Start: 04-17-2021 take 10 mEq by mouth once daily Potassium Chloride Active 10 MEQ PO Daily April 07, 2022 1:00am Start: 04-17-2021 take 1 capsule by [facility] once daily potassium chloride 10 mEq Cap-ER 10 mEq = 1 cap(s), Oral, Daily, # 90 cap(s), Refills(s) 3, Pharmacy: [facility], 165, cm, 12/10/20 11:57:00 EDT, Height/Length Dosing, 87, kg, 12/10/20 11:57:00 EDT, Weight Dosing Start Date: 04/17/21 Status: Ordered Potassium Chlori de 10 MEQ TBCR TAKE 1 TABLET DAILY. Quantity: 0 Refills: 0 Ordered: 08-May-2021 DO Active predniSONE 20 mg oral tablet (1 source) Start: 04-10-2023 End: 04-17-2023 take 3 tablets by mouth once daily predniSONE 20 mg Tab 60 mg = 3 tab(s), Oral, Daily, X 7 day(s), # 21 tab(s), Refills(s) 0, Pharmacy: [facility] #[id number], 165, cm, 04/10/23 9:26:00 EST, Height/Length Dosing, 96.9, kg, 04/10/23 9:26:00 EST, Weight Dosing Start Date: 04/10/23 Stop Date: 04/17/23 Status: Ordered Psyllium (16 sources) Start: 11-06-2022 Metamucil Oral , Refills(s) 0 Start Date: 11/06/22 Status: Ordered Psyllium Husk (Metamucil) 0.4 gram Capsule (2 sources) Start: 02-18-2023 Psyllium Husk (Metamucil) 0.4 gram Capsule Active 0.4 GM PO Daily February 18, 2023 1:00am Start: 02-18-2023 Psyllium Husk (Metamucil) 0.4 gram [...] Active 10 MG PO Every evening August 06, 2018 12:00am Has been instructed by [facility] to stop 2 days before heart cath Start: 08-06-2018 take 20 mg by mouth once daily Rivaroxaban Active 20 MG PO Every evening August 06, 2018 12:00am Has been instructed by [facility] to stop 2 days before heart cath Xarelto 10 10mg PO Active Tylenol 8 HR Arthritis Pain (13 sources) Start: 01-06-2023 take 650 mg by mouth every eight hours as needed for pain Tylenol 8 HR Arthritis Pain 650 mg, Oral, q8hr, PRN as needed for pain, Refills(s) 0 Start Date: 01/06/23 Status: Ordered ubidecarenone 100 mg oral capsule (15 sources) Start: 01-19-2023 take 1 capsule by mouth twice daily coenzyme Q-10 100 mg capsule Indications: Mixed hyperlipidemia , Atherosclerosis of enterprise coronary artery of enterprise heart without angina pectoris TAKE 1 CAPSULE BY MOUTH TWICE A DAY 180 capsule 3 01/19/2023 Active Start: 04-07-2022 End: 02-18-2023 Coenzyme Q10 Discontinued PO Daily April 07, 2022 1:00am February 18, 2023 10:26am Start: 11-12-2021 take 1 capsule by mo ut twice daily CoQ10 100 MG Oral Capsule TAKE 1 CAPSULE BY MOUTH TWICE A DAY Quantity: 180 Refills: 3 Ordered: 12-Nov-2021 Fariha Guidry MD Start : 12-Nov-2021 Active Ubiquinone (2 sources) Start: 02-18-2023 take 90 mg by mouth once daily Ubiquinone Active 90 MG PO Daily February 18, 2023 1:00am Start: 02-18-2023 take 90 mg by mouth once daily Ubiquinone Active 90 MG PO Daily February 18, 2023 12:00am Completed/Discontinued Medications Medication Drug Class(es) Dates Sig (Normalized) Sig (Original) canagliflozin 300 mg oral tablet (5 sources) Sodium-Glucose Cotransporter 2 Inhibitor Start: 08-06-2018 End: 04-07-2022 take 300 mg by mouth once daily in the evening Canagliflozin Discontinued 300 MG PO Every evening August 06, 2018 12:00am April 07, 2022 3:00pm Multi Vitamin TABS (1 source) Multi Vitamin TA BS TAKE 1 TABLET DAILY. Quantity: 0 Refills: 0 Ordered: 30-Jul-2022 DO Active nebivolol 5 mg oral tablet (5 sources) Start: 08-06-2018 End: 04-07-2022 take 5 mg by mouth once daily in the evening Nebivolol Discontinued 5 MG PO Every evening August 06, 2018 12:00am April 07, 2022 2:59pm SITagliptin 100 mg oral tablet (5 sources) Dipeptidyl Peptidase 4 Inhibitor Start: 08-06-2018 End: 04-07-2022 take 100 mg by mouth once daily in the evening Sitagliptin Phosphate Discontinued 100 MG PO Every evening August 06, 2018 12:00am April 07, 2022 3:00pm ticagrelor 90 mg oral tablet (5 sources) Start: 08-11-2018 End: 02-18-2023 take 1 tablet by mouth twice daily Ticagrelor (Brilinta) 90 mg tablet Discontinued 90 MG PO Twice daily 180 90 August 11, 2018 12:00am February 18, 2023 10:26am ubidecarenone 100 mg / vitamin e 5 [...] [Chronic kidney disease, Stage III (moderate)] Onset: 09-25-1907-12-2020 Chronic Chronic kidney disease (2 sources) Chronic [...] sources) Coronary atherosclerosis; Translations: [Coronary atherosclerosis of enterprise coronary artery] Onset: 09-18-19 23 09-11-2020 Chronic Coronary atherosclerosis and other heart disease (16 sources) Past history of procedure; Translations: [Percutaneous transluminal coronary angioplasty status] Onset: 01-10-2002-12-2023 Episodic Coronary atherosclerosis and other heart disease (3 sources) Coronary atherosclerosis and other heart disease; Translations: [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 [...] limb due to atherosclerosis; Translations: [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, left leg] [...] Episodic Other aftercare (1 source) Other intermediate (current) drug therapy; Translations: [Other intermediate (current) drug therapy] Onset: 09-18-19 Episodic Other aftercare (1 source) Long-term current use of drug therapy; Translations: [Other termite helper (current) drug therapy] Onset: 01-27-20 Episodic Other aftercare (1 source) Long-term current use of anticoagulant; Translations: [termite helper (current) use of anticoagulants] Onset: 01-27-20 Episodic Other aftercare (2 sources) Long-term current use of insulin; Translations: [termite helper (current) use of insulin] Onset: 01-27-20 [...] Name Value Interpretation Reference Range Facil ity Consultation Noteon 06-10-19 Consultation Note [id number] IFF Normal [facility] Consent for Treatmenton 04-17 Consent for Treatment [id number] IFF Normal [facility] Consent for Treatment [id number] IFF Normal [facility] [id number] 05-11-2023 HbA1c (Bld) [Mass fraction] 11.3 % High <=5.9 [facility] Comment on above: Performed By: #### 7 [id number] ####[facility] [id number] [place] [address] Physician Orderon 05-11-2023 Physician Order [id number] IFF Normal [facility] Renal Panelon 05-11-2023 Albumin [Mass/Vol] 3.9 g/dL Normal 3.3-5.0 [facility] Comment on above: Performed By: #### 2 [id number] #### [facility] [address] [place] [address] Anion gap [Moles/Vol] 13 mmol/L Normal 6-16 [facility] Comment on above: Performed By: #### 2 [id number] #### [facility] [address] [place] [address] BUN/Creat Ratio 16 No Units Normal 10-20 [facility] Comment on above: Performed By: #### 2 [id number] #### [facility] [address] [place] [address] Calcium [Mass/Vol] 8.9 mg/dL Normal 8.9-11.1 [facility] Comment on above: Performed By: #### 2 [id number] #### [facility] [address] [place] [address] Chloride [Moles/Vol] 101 mmol/L Normal 101-111 [facility] Comment on above: Performed By: #### 2 [id number], [id number] #### [facility] [address] [place] [address] CO2 [Moles/Vol] 28 mmol/L Normal 21-31 [facility] Comment on above: Performed By: #### 2 [id number], [id number] #### [facility] [address] [place] [address] Creatinine [Mass/Vol] 1.2 mg/dL Normal 0.5-1.3 [facility] Comment on above: Performed By: #### 2 [id number], [id number] #### [facility] [address] [place] [address] Glucose [Mass/Vol] 385 mg/dL High 55-199 [facility] Comment on above: Performed By: #### 2 [id number], [id number] #### [facility] [address] [place] [address] Phosphate [Mass/Vol] 3.5 mg/dL Normal 1.9-4.6 [facility] Comment on above: Performed By: #### 2 [id number], [id number] #### [facility] [address] [place] [address] Potassium [Moles/Vol] 4.3 mmol/L Normal 3.5-5.3 [facility] Comment on above: Performed By: #### 2 [id number], [id number] #### [facility] [address] [place] [address] Sodium [Moles/Vol] 138 mmol/L Normal 135-145 [facility] Comment on above: Performed By: #### 2 [id number], [id number] #### [facility] [address] [place] [address] Urea nitrogen [Mass/Vol] 19 mg/dL Normal 5-21 [facility] Comment on above: Performed By: #### 2 [id number], [id number] #### [facility] [address] [place] [address] U Protein/Creat Ratioon 04-17 U Creatinine 34.3 mg/dL Invalid Interpretation Code [facility] Comment on above: Performed By: #### 1 [id number], [id number] #### [facility] [address] [place] [address] U Prot/Creat Ratio 13.70 mg/gm Cr Normal .00-200.00 [facility] [place] Comment on above: Performed By: #### 1 [id number] #### [facility] [address] [place] [address] Ur Total Protein <6.0 Invalid Interpretation Code [facility] Comment on above: Performed By: #### 1 [id number] #### [facility] [address] [place] [address] Urinalysison 05-11-2023 Bilirubin Ql (U) Negative Normal Negative [facility] Comment on above: Performed By: #### 1 [id number] #### [facility] [address] [place] [address] Clarity (U) CLEAR Normal Clear [facility] Comment on above: Performed By: #### 1 [id number], [id number] #### [facility] Laboratory [address] [place] [address] Color (U) YELLOW Normal Yellow [facility] Comment on above: Performed By: #### 1 [id number], [id number] #### [facility] Laboratory [address] [place] [address] Epithelial cells.squamous LM.HPF (Urine sed) [#/Area] 0-2 Normal 0-2 [facility] Comment on above: Performed By: #### 1 [id number], [id number] #### [facility] Laboratory [address] [place] [address] Glucose Test strip (U) [Mass/Vol] 3+ Abnormal Negative [facility] Comment on above: Performed By: #### 1 [id number], [id number] #### [facility] Laboratory [address] [place] [address] Hemoglobin Ql (U) Negative Normal Negative [facility] Comment on above: Performed By: #### 1 [id number], [id number] #### [facility] Laboratory [address] [place] [address] Ketones (U) [Mass/Vol] Negative Normal Negative [facility] Comment on above: Performed By: #### 1 [id number], [id number] #### [facility] Laboratory [address] [place] [address] [place] Aguza.plasma/Lith ium.RBC (Bld) [Mass ratio] 0-3 Normal 0-3 [facility] Comment on above: Performed By: #### 1 [id number], [id number] #### [facility] Laboratory [address] [place] [address] Nitrite Ql (U) Negative Normal Negative [facility] Comment on above: Performed By: #### 1 [id number], [id number] #### [facility] Laboratory [address] [place] [address] pH (U) 5.5 [pH] Invalid Interpretation Code 5.0-9.0 [facility] Comment on above: Performed By: #### 1 [id number], [id number] #### [facility] Laboratory [address] [place] [address] Protein (U) [Mass/Vol] Negative Normal Negative [facility] Comment on above: Performed By: #### 1 [id number], [id number] #### [facility] Laboratory [address] [place] [address] Specific gravity (U) [Rel density] 1.010 Invalid Interpretation Code 1.005-1.030 [facility] Comment on above: Performed By: #### 1 [id number], [id number] #### [facility] Laboratory [address] [place] [address] Type of Urine collection method Clean Catch Normal [facility] Comment on above: Performed By: #### 1 [id number], [id number] #### [facility] Laboratory [address] [place] [address] Urobilinogen Qn (U) 0.2 {Donell'U}/dL Normal 0.0-1.0 [facility] Comment on above: Performed By: #### 1 [id number], [id number] #### [facility] Laboratory [address] [place] [address] WBC Auto Ql (U) Negative Normal Negative [facility] Comment on above: Performed By: #### 1 9351602, [id number] #### [facility] Laboratory [address] [place] [address] WBC LM.HPF (Urine sed) [#/Area] 0-5 Normal 0-5 [facility] Comment on above: Performed By: #### 1 6043944, [id number] #### [facility] Laboratory [address] [place] [address] eGFRon 05-11-2023 eGFR 48 mL/min/1.73 m2 Low >=59 [facility] Comment on above: Order Comment: Order added by Discern Expert. Performed By: #### 2 [id number], [id number] #### [facility] Laboratory [address] [place] [address] Consent for Treatmenton 03-17 Consent for Treatment [id number]#1.00T IFF Normal [facility] Discharge Instructionson Discharge Instructions [id number]#1.00 TIFF Normal [facility] ED Clinical Summaryon 2023 ED Clinical Summary (Inserted Image. [place] ble to display) [place] [id number] ED Clinical Summary Person Information Name: EVON CORCORAN [facility] Age: 72 Years : 1950 Sex: Female Language: Ecuadorean PCP: Christopher WELLS DO, FAAFP Marital Status: [...] 04/10/2023 11:23:38 04/10/2023 11:23:38 04/10/2023 11:23:38 ADDRESS: [address] [place] [address] [address] [facility] [id number] PHYS DOC NOTES: MEDICAL INFORMATION: Prescriptions Given: New Medications [id number], [address] [place], [place] [id number], [phone] albuterol (Albuterol (Eqv-ProAir HFA) 90 mcg/inh inhalation [...] Adult Follow up: With: Address: When: Christopher WELLS [address] [place] [address] [place] [id number] [facility] ([facility] In 3 days 04/13/2023 DIAGNOSIS: Bronchitis Normal [facility] ED Note-Physicianon 04-10-19 ED Note-Physician [...] No known sick contacts. She is taking pndu-eou-hgrcdpi cough and cold medications. Review of Systems [...] Wheezing, 8.5 gm, Refill(s) 0, [facility] #[id number], 165, cm, 04/10/23 9:26:00 EST, Height/Length Dosing, 96.9, kg, 04/10/23 9:26:00 EST, Weight Dosing azithromycin, = 1 packet(s), Oral, As Directed, as directed on package labeling, X 5 day(s), # 6 tab(s), Refills(s) 0, [id number], 165, cm, 04/10/23 9:26:00 EST, Height/Length Dosing, 96.9, kg, 04/10/23 9:26:00 EST, Weight Dosing predniSONE, 60 mg = 3 tab(s), Oral, Daily, X 7 day(s), # 21 tab(s), Refills(s) 0, Pharmacy: [id number], 165, cm, 04/10/23 9:26:00 EST, Height/Length Dosing, [...] WELLS In 3 days 04/13/2023 EST 280 [facility] [place] [id number] [facility] (1) Additional Instructions: Patient Education Acute Bronchitis, Adult Attestation Patient seen and evaluated by the physician speech language pathologist assistant. Attending physician was present in the emergency department and supervised care. This visit was performed by both the physician and an APC. I performed all aspects of the MDM as documented. This report was transcribed using voice recognition software. Every effort was made to ensure accuracy, however, inadvertently computerized production worker mistakes may be present. Appropriate healthcare PPE was used in evaluating this patient. The patient was placed in a mask. The healthcare provider was wearing mask, gloves, and utilizing proper hand hygiene. All equipment was properly cleansed. 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 Normal [facility] Comment on above: Result Comment: [...] Follow these instructions at home: ? Take xbkd-frp-jgdajhe and prescription medicines only as told by [...] and water are not available, use hand farm planner. ? Avoid contact with people who have [...] is easier to cough up. ? Take ikbo-kcn-vjjsdit and prescription medici (more content not included)... Normal [facility] ED Patient Summaryon 024 ED Patient Summary (Inserted Image. Carolina ble to display) [place] [id number] Patient Discharge Instructions Person Information Name: EVON CORCORAN Age: 72 Years Arrival Date: 04/10/2023 09:13:22 Discharge Diagnosis: Bronchitis Primary Care Physician: Christopher WELLS DO, FAAFP Provider Information Primary Provider: Malvin Gupta M.D. Advanced Church Administrator:Radhames Suarez PA-C The exam and treatment you received in the Emergency Department were for an urgent problem and are not intended as complete care. It is important that you follow up with a doctor, nurse practitioner, or physician?s speech language pathologist assistant for ongoing care. If your symptoms become worse or you do not improve as expected and you are unable to reach your usual health care provider, you should return to the Emergency Department. We are available 24 hours a day. EVON CORCORAN has been given the following list of patient education materials, prescriptions and follow-up instructions: Follow-up Instructions: With: Address: When: Christopher WELLS [address], [place] [address] Business (1) In 3 days 04/13/2023 In the event that this physician does not participate in your insurance network, please consult with your insurance company to find a nearby participating provider. Patient Education Materials: Acute Bronchitis, Adult A MESSAGE TO ALL PATIENTS REGARDING OPIOIDS PRESCRIPTION OPIOIDS: WHAT YOU NEED TO KNOW Prescription opioids can be used to help relieve fcgfvokw-fr-mjbguf pain and are often prescribed following a [...] be struggling with addiction, tell your health acute care nursing assistant and ask for guidance or call [facility] Helpline at [phone]. [employer] (more content not included)... Normal [facility] XR Chest 2 Viewson XR Chest 2 Views Exam Date/Time: 04/10/2023 [...] MD Transcribed by: KATEY Technologist: JUAN MIGUEL [facility] Consent for Treatmenton Consent for Treatment [id number]#1.00T IFF [facility] Consultation Noteon 03-23-19 24 Consultation [...] 11, Dx: E11.9 Directions: BID, [id number], Supply, 165, cm, 06/11/22 9:10:00 EDT, Height/Length Dosing, 97.6, kg, 06/11/22 9:10:00 EDT, Weight Dosing Tresiba FlexTouch 100 units/mL subcutaneous solution: 50 unit(s), SubCutaneous, Daily, Dx E11.65, # 5 EA, Refills(s) 11, [facility] #[id number], 165, cm, 06/11/22 9:10:00 EDT, Height/Length Dosing, 97.6, kg, 06/11/22 9:10:00 EDT, Weight Dosing chlorthalidone 25 mg Tab: 25 mg = 1 tab(s), Oral, Bedtime, # 90 tab(s), Refills(s) 1, Pharmacy: [facility] #[id number], 165, cm, 09/10/22 8:16:00 EDT, Height/Length Dosing, 97.4, kg, 09/10/22 8:16:00 EDT, Weight Dosing potassium chloride 10 mEq Cap-ER: 10 mEq = 1 cap(s), Oral, Daily, # 90 cap(s), Refills(s) 3, Pharmacy: [facility] #[id number], 165, cm, 05/21/22 12:25:00 EST, Height/Length Dosing, [...] Problems HTN - Hypertension / SNOMED CT 9821188695 / Confirmed Familial hypercholesteremia / SNOMED CT 1807472565 / Confirmed Non-smoker / SNOMED CT 12187415 / Confirmed 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 Type 2 diabetes mellitus with stage 3 chronic kidney disease / SNOMED CT 423256869 / Confirmed linked DM with CKD per outpatient CDI policy. Mild nonproliferative diabetic retinopathy of both eyes / SNOMED CT 203304852 / Confirmed noted in 08/21/2019 Diabetic Eye Exam. added per outpatient CDI policy. 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 Normal [facility] Comment on above: Result Comment: Elec tronically Signed By: Dawit BARTH, Mara\.br\Date and Time Signed: 03/23/23 09:07 EST Legal Correspondence Officeo n 03-23-2023 Legal Correspondence Office [id number]#1.00 TIFF Normal [facility] Office/Clinic Note-Physician on 03-23-2023 Office/Clinic Note-Physician [id number]#1.00 TIFF Normal [facility] Patient Correspondenceon Patient Correspondence [id number]#1.00 TIFF Normal [facility] Patient Correspondence [id number]#1.00 TIFF Normal [facility] Patient Correspondence [id number]#1.00 TIFF Normal [facility] Patient Correspondence [id number]#1.00 TIFF Normal [facility] Patient History Officeon Patient History Office [id number]#1.00 TIFF Normal [facility] Family Medicine Office/Clini c Noteon [...] re: potential procedure: Clinically currently asymptomatic and npd-eyni-fneplzaabbp. Please see Dr. Castro's consultation 2. BMI [...] and exercise. 4. Long-term insulin use (Z79.4: [facility] (current) use of insulin) Dr Tuyet griggs. 5. 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 Type 2 diabetes mellitus with hypercholesterolemia (E11.69: Type 2 diabetes mellitus with other specified complication) Tresiba 50 units SQ every morning with sliding scale per med rec per Dr. Salter. Continue losartan: Sugars improved, surveillance A1c's per Dr. Ruggiero 7. Type 2 diabetes mellitus with stage (more content not included)... Normal [facility] Comment on above: Result Comment: Elec tronically Signed By: Christopher WELLS DO, FAAFP\francisco\Date and Time Signed: 03/20/23 09:40 EST Patient [...] plan? Your health care provider or certified athletic trainer can help you make a plan for [...] stroke). Where to find more information ? [place] [employer]: www.diabetes.org Summary ? Exercising regularly is important for overall health, especially for people who have diabetes mellitus. ? Exercising has many health benefits. It increases muscle strength and bone density and reduces body fat and stress. It also lowers and controls blood glucose. ? Your health care provider or certified athletic trainer can help you make an activity plan [...] provider. Document Revised: 11/28/2019 Document Reviewed: 11/28/2019 ElseNatanael Ulien Patient Education ? 2022 [employer] [facility] Nursing Note - Woundon 03-19 Nursing Note - Wound [id number]#2.00 TIFF [facility] Consultation Noteon 03-07-20 Consultation Note [id number]#1.00T IFF Normal [facility] CHEMISTRYOrdered By: Lab ROP User on 03-04-2023 Glucose [Mass/Vol] 78 mg/dL Normal 55 - 99 mg/dL FTM C POC Subsection POC Device SN [id number] Invalid Interpretation Code [facility] POC Subsection POC Username MACIE POTTS Invalid Interpretation Code [facility] Subsection Sodium [Moles/Vol] [id number] mmol/L Invalid Interpretation Code [facility] POC Subsection Capillary Glucose POCon 02-14 Glucose [Mass/Vol] 78 mg/dL Normal 55-99 [facility] Comment on above: Performed By: #### 2 [id number] #### [facility] Laboratory [address] [place] [address] Consent for Procedure/Surger yon 03-04-2023 Consent for Procedure/Surgery [id number]#1.00 [facility] for [facility] 02-14 Consent for Treatment [id number]#1.00T IFF [facility] Discharge Instructionson Discharge Instructions [id number]#1.00 TIFF Normal [facility] Insurance Correspondenceon 05-05-2022 Insurance Correspondence [id number]#1.00 TIFF Normal [facility] IntraOperative Documentson 05-05-2022 IntraOperative Documents [id number]#1.00 TIFF [facility] Main OR Intraoperative Recor don 03-04-2023 Main OR Intraoperative Record IntraOp Document Type FTPM Summary Primary Physician: Nicola Tapia DO Finalized Date/Time: 03/04/23 09:06:01 Pt. Name: EVON CORCORAN/Sex: 1950 Female Med Rec #: [id number] Physician: Nicola Tapia DO Financial #: [id number] Pt. Type: P Room/Bed: / Admit/Disch: 03/04/23 [...] Leanne Montenegro Role Performed Surgeon - Primary Order Worker - Primary Scrub - Primary Time In 03/04/23 09:01:00 03/04/23 09:01:00 03/04/23 09:01:00 Time Out 03/04/23 09:06:00 03/04/23 09:06:00 03/04/23 09:06:00 Procedure HIP INJECTION(Left) HIP INJECTION(Left) HIP INJECTION(Left) Comments Last Modified By: Crow ECHAVARRIA, Estrellita Maria RN, Estrellita Ryder RN 03/04/23 09:05:56 03/04/23 09:05:56 03/04/23 09:05:56 Entry 4 Case Attendee Ervin Mckeon Role Performed Gyro Mechanic Time In 03/04/23 09:01:00 Time Out 03/04/23 [...] Antibiotic No Time Out Estrellita Maria RN, Madison Armstrong RN, Willie Padgett DO, Bradford A., Ervin Mckeon [...] and tissue Entry 1 Skin Integrity Intact, [place], Warm, and Skin Abnormality No Dry Outcomes [...] injury related (more content not included)... Normal [facility] Main OR Preoperative Recordo n 03-04-2023 Main OR Preoperative Record Holding Area Document Type FTPM Summary Primary Physician: Nicola Tapia DO Finalized Date/Time: 03/04/23 08:19:34 Pt. Name: EVON CORCORAN Get Veras/Sex: 1950 Female Med Rec #: [id number] Physician: Nicola Tapia DO Financial #: [id number] Pt. Type: P Room/Bed: / Admit/Disch: 03/04/23 [...] Signed By: Macie Potts RN 03/04/23 08:19 [facility] Consent for Treatmenton 02-13 Consent for Treatment [id number]#1.00T IFF [facility] Multi-Wound Charton 03-03-20 Multi-Wound Chart [id number]#1.00 TIFF [facility] Nursing Assessment - Woundon 03-03-2023 Nursing Assessment - Wound [id number]#1.00 TIFF [facility] Physician Orderon 03-03-2023 Physician Order [id number]#1.00 TIFF [facility] Progress Note - Woundon 02-13 Progress Note - Wound [id number]#1.00 TIFF [facility] Correspondence - Woundon Correspondence - Wound [id number]#1.00 TIFF [facility] Consent for Procedure/Surger yon 02-24-2023 Consent for Procedure/Surgery [id number]#1.0 0TIFF [facility] Consent for Treatmenton 02-13 Consent for Treatment [id number]#1.00T IFF [facility] Multi-Wound Charton 02-25-20 Multi-Wound Chart [id number]#1.00 TIFF Normal [facility] Nursing Assessment - Woundon 02-24-2023 Nursing Assessment - Wound [id number]#1.00 TIFF [facility] Nursing Note - Woundon 02-24 Nursing Note - Wound [id number]#1.00 TIFF Normal [facility] Physician Orderon 02-24-2023 Physician Order [id number]#1.00 TIFF [facility] Procedure - Woundon 02-25-20 Procedure - Wound [id number]#1.00 TIFF [facility] Progress Note - Woundon 02-13 Progress Note - Wound [id number]#1.00 TIFF [facility] Retail - Clinical Noteon Retail - Clinical Note [id number]#1.00T IFF [facility] US venous mapping BI loweron 02-19-2023 [place] [address] Ultrasound Report Signed Patient: Evon Corcoran MR#: [id number] : 1950 Acct:[id number] Age/Sex: 72 / F ADM Date: 02/18/23 Loc: Room: Type: [facility] Attending Dr: Miguel Membreno MD Ordering [...] Miguel Membreno M.D.02/19/2023 1:30 PM Dictation Location: [place] [address] Tech: Isabell Duarte Transcribed By: RICH 02/19/23 1330 Dictated By: Miguel Membreno MD 02/19/23 1327 Signed By: 02/19/23 1330 [facility] Blood Urea Nitrogenon 2022 Urea nitrogen [Mass/Vol] 25 mg/dL Normal 10-07 [facility] Comment on above: Performed By: #### C REMAY BUN #### [facility] [address] [place] [address] [place] Creatinineon 02-18-2023 Creatinine [Mass/Vol] 1.18 mg/dL Normal 0.60-1.20 [facility] Comment on above: Performed By: #### C NIMO BUN #### [facility] [address] [place] [address] [place] Creatinine Clr Calc Pharmacy 49.07 [facility] Comment on above: Result Comment: PERF ORMED BY: [place] [address] PATHOLOGIST STRUCTURAL STEEL TRADES WORKER AIRAM ROMEO M.D. Performed By: #### C REMAY BUN #### [facility] [address] [place] [address] [place] GFR/1.73 sq M.predicted MDRD (S/P/Bld) [Vol rate/Area] 48.770 mL/min/{1.73_m2} [facility] Comment on above: Performed By: #### C REAT, BUN #### [address] Creatinine [Mass/volume] in Serum or PlasmaOrdered By: Miguel Membreno on 02-18-2023 Creatinine [Mass/Vol] 1.18 mg/dL 0.60-1.20 [facility] Lab Reportson 02-18-2023 Lab Reports [id number]#1.00T IFF Normal [facility] No Panel InformationOrdered By: Miguel Membreno on 02-18-2023 Estimated GFR (CKD-EPI) 48.770 mL/Min [facility] Pharmacy Creatinine Clearance (Chem 49.07 [facility] Operative Reporton Operative Report [id number]#1.00T IFF Normal [facility] Retail - Clinical Noteon Retail - Clinical Note [id number]#1.00T IFF [facility] Retail - Clinical Note [id number]#1.00T IFF [facility] Urea nitrogen [Mass/volume] in Serum or PlasmaOrdered By: Miguel Membreno on 02-18-2023 Urea nitrogen [Mass/Vol] 25 mg/dL 10-07 [facility] Insurance Correspondenceon 1 04-20-2022 Insurance Correspondence [id number]#1.00 TIFF [facility] Physician Orderon 02-17-2023 Physician Order [id number]#1.00 TIFF Normal [facility] CHEMISTRYOrdered By: Lab ROP User on 02-16-2023 Glucose [Mass/Vol] 311 mg/dL High 55 - 99 mg/dL [facility] C POC Subsection POC Device SN [id number] Invalid Interpretation Code [facility] POC Subsection POC Username RONI CHOWDHURY Invalid Interpretation Code [facility] POC Subsection Sodium [Moles/Vol] [id number] mmol/L Invalid Interpretation Code [facility] POC Subsection Capillary Glucose POCon Glucose [Mass/Vol] 311 mg/dL High 55-99 [facility] Comment on above: Performed By: #### 2 [id number] #### [facility] Laboratory [address] [place] [address] Consent for Treatmenton Consent for Treatment [id number]#1.00T IFF Normal [facility] Consent for Treatment [id number]#1.00T IFF Normal [facility] Main OR Preoperative Recordo n 02-16-2023 Main OR Preoperative Record Holding Area Document Type FTPM Summary Primary Physician: Gary Cerda MD Finalized Date/Time: 02/16/23 13:36:16 Pt. Name: EVON CORCORAN Get Hernandez/Sex: 1950 Female Med Rec #: [id number] Physician: Gary Cerda MD Financial #: [id number] Pt. Type: P Room/Bed: / Admit/Disch: 02/16/23 13:08:33 - Institution: [facility] Pre-Care Text: Verifies consent for planned procedure, identifies individual values and wishes concerning care, includes family members in perioperative teaching Secures patient's records' belongings, and valuables, maintains patient's dignity and privacy, and maintains patient confidentiality Entry 1 In Holding 02/16/23 13:16:00 Outcomes Met? Yes Last Modified By: Trenton ECHAVARRIA, Bertha Hall 02/16/23 13:16:59 Post-Care Text: The patient participates [...] 13:19 Bertha Chowdhury RN 02/16/23 13:36 Normal [facility] Multi-Wound Charton 02-17-20 Multi-Wound Chart [id number]#1.00 TIFF Normal [facility] Nursing Assessment - Woundon 02-16-2023 Nursing Assessment - Wound [id number]#1.00 TIFF [facility] Nursing Note - Woundon 02-16 Nursing Note - Wound [id number]#1.00 TIFF [facility] Patient Correspondenceon Patient Correspondence [id number]#1.00T IFF [facility] Consent for Procedure/Surger yon 02-10-2023 Consent for Procedure/Surgery [id number]#1.00 TIFF [facility] Consent for Treatmenton 01-15 Consent for Treatment [id number]#1.00T IFF [facility] Multi-Wound Charton 02-11-20 Multi-Wound Chart [id number] 102 [id number]#1.00 TIFF [facility] Nursing Assessment - Woundon 02-10-2023 Nursing Assessment - Wound [id number]#1.00 [facility] - [facility] 02-10 Nursing Note - Wound [id number]#1.00 TIFF [facility] Physician Orderon 02-10-2023 Physician Order [id number] 102 [id number]#1.00 [facility] Procedure - [facility]ound[facility] 02-11-20 Procedure - Wound [id number] 102 [id number]#1.00 [facility] Progress Note - Woundon 01-15 Progress Note - Wound [id number]#1.00 [facility]ence[facility] 04-05-2022 Insurance Correspondence [id number]#1.00 [facility] 04-04-2022 Insurance Correspondence [id number]#1.00 [facility] January 29, 2023 EVON CORCORAN [address] [place] [address] EVON CORCORAN 1950 We are pleased that you have agreed to participate in our Care Management service. As discussed, we can assist you to coordinate your health care needs and educate you about your health conditions. Our goal is to help you achieve the best possible health outcomes. As part of our service, we will assist you in the following areas: ? Assign a Guardian Family Member who will work with you to help [...] phone contact on 02/19/2023 at 08:00 AM. [facility] Guardian Family Member [phone] opt. #2 [facility] Consent for Procedure/Surger yon 01-27-2023 Consent for Procedure/Surgery [id number]#1.00 TIFF [facility] Consent for Treatmenton 01-14 Consent for Treatment [id number]#1.00T IFF [facility] Multi-Wound Charton 01-28-20 Multi-Wound Chart [id number] 102 [id number]#1.00 TIFF [facility] Nursing Assessment - Woundon 01-27-2023 Nursing Assessment - Wound [id number]#1.00 TIFF [facility] Nursing Note - Woundon 01-27 Nursing Note - Wound [id number]#1.00 TIFF [facility] Physician Orderon 01-27-2023 Physician Order [id number] 102 [id number]#1.00 TIFF [facility] Procedure - Woundon 01-28-20 Procedure - Wound [id number] 102 [id number]#1.00 TIFF [facility] Progress Note - Woundon 01-14 Progress Note - Wound [id number]#1.00 TIFF [facility] Ambulatory Visit Summaryon 03-28-2022 Ambulatory [...] With: Denton Mares DPM Where: [facility] Thursday 9:45 AM EST With: Where: [facility] Thursday 8:45 AM EST With: Gary Cerda MD Where: [facility] 2022 8:00 AM EST With: Linda Solorio CNP Where: [facility] Invalid Interpretation Code [address], [place] [address]- \.br\ Thursday 8:00 AM EST \.br\ With:\.br\ Where: [facility] Medicine Office/Clini c Noteon 01-26-2023 Family Medicine [...] of clutter to prevent tripping and/or falling. [place] Advance Directives reviewed. Documents remain at home, [...] Labs were ordered, to be completed with [facility]. Mammogram and DEXA scan up to date, [...] as directed. 3. 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 Follows up with labs, DM supplies and dosage adjustments as needed. Reviewed available sites that can be used to administer Insulin, patient voices understanding. Will continue as directed. 4. Chronic renal impairment, stage 3a (N18.31: Chronic kidney disease, stage 3a) Follows with Me[facility]uring Machine Tender, Dr. Núñez. Encouraged with avoiding NSAID's. Healthy Kidney Nutritional education material provided. Goals to keep blood sugars and blood pressure under better control to reduce cardiovascular risk factors. Medications and blood work monitored with visits. Continues taking statin medication daily. 5. On statin therapy (Z79.899: Other termite helper (current) drug therapy) Taking Atorvastatin daily, encouraged to eat a diet that is low in saturated fats. Stressed importance of loosing weight as being overweight does produce more lipids. Risks may also increase with a family history of hyperlipidemia. Encouraged with healthy dietary choices to reduce risk factors associated with CVA. Will continue to follow up with labs as directed. 6. Anticoagulated (Z79.01: [facility] (current) use of anticoagulants) Taking Xarelto and [...] of Hepatitis C for people born between 4445-5972. Hand (more content not included)... Normal [facility] Comment on above: Result Comment: Elec tronically Signed By: Christopher WELLS DO, FAAFP\.br\Date and Time Signed: 01/26/23 17:15 EST\.br\Electronically Co-Signed By: Lesly West LPN\.br\Date and Time Co-Signed: 01/26/23 09:21 EST Nursing Assessment - Woundon 01-26-2023 Nursing Assessment - Wound [id number]#2.00 TIFF [facility] Nursing Note - Woundon 01-26 Nursing Note - Wound [id number]#2.00 TIFF [facility] Patient Educationon 01-27-20 Patient Education [...] Keep items that you use often in tpfl-tw-qmokm places. Lower the shelves around your home [...] the way. ? Do not use floor latvian or wax that makes floors slippery. What [...] Control and Prevention, [place]: www.cdc.gov ? National [place] on Aging: www.[place].nih.gov Contact a doctor if: [...] provider. Document Revised: 12/02/2021 Document Reviewed: 10/03/2020 ElseNatanael Ulien Patient Education ? 2022 [employer] Endocrinology Diabetes Melli (more content not included)... Normal [facility] Screenson 01-26-2023 Screens [id number] [id number]#1.00TI FF Normal [facility] Multi-Wound Charton 01-24-20 23 Multi-Wound Chart [id number] 105 [id number]#1.00 TIFF Normal [facility] Physician Orderon 01-23-2023 Physician Order [id number] 105 [id number]#1.00 TIFF Normal [facility] Consent for Treatmenton Consent for Treatment [id number]#1.00T IFF Normal [facility] Consent for Procedure/Surger yon 01-14-2023 Consent for Procedure/Surgery [id number]#1.00 TIFF Normal [facility] Consent for Procedure/Surgery [id number]#1.00 TIFF Normal [facility] Nursing Assessment - Woundon 01-14-2023 Nursing Assessment - Wound [id number]#1.00 TIFF Normal [facility] Nursing Note - Woundon 01-14 Nursing Note - Wound [id number]#2.00 TIFF [facility] CHEMISTRYOrdered By: Cynthia Serrano se on 01-13-2023 HbA1c (Bld) [Mass fraction] 11.5 % High <=5.9% [facility] ChemAutoSS Consent for Treatmenton 12-16 Consent for Treatment [id number]#1.00T IFF Normal [facility] Consent to Photographon 12-16 Consent to Photograph [id number]#1.00T IFF Normal [facility] Correspondence - Woundon Correspondence - Wound [id number]#1.00T IFF Normal [facility] Correspondence - Wound [id number]#1.00T IFF Normal [facility] Correspondence - Wound [id number]#1.00T IFF Normal [facility] GmaP9feh 01-13-2023 HbA1c (Bld) [Mass fraction] 11.5 % High <=5.9 [facility] Comment on above: Performed By: #### 2 [id number], [id number] #### [facility] Laboratory [address] [place] [address] Multi-Wound Charton 01-14-20 Multi-Wound Chart [id number] 002 [id number]#1.00 TIFF Normal [facility] Nursing Assessment - Woundon 01-13-2023 Nursing Assessment - Wound [id number]#1.00 TIFF Normal [facility] Outside Recordson 01-13-2023 Outside Records [id number] 231 [id number]#1.00T IFF Normal [facility] Patient Correspondenceon Patient Correspondence [id number]#1.00 TIFF Normal [facility] Physician Orderon 01-13-2023 Physician Order [id number] 002 [id number]#1.00 TIFF Normal [facility] Procedure - Woundon 01-14-20 Procedure - Wound [id number] 002 [id number]#1.00 TIFF Normal [facility] Progress Note - Woundon 12-16 Progress Note - Wound [id number]#1.00 TIFF Normal [facility] Insurance Correspondenceon Insurance Correspondence [id number]#1.0 0TIFF Normal [facility] Radiology Outside Office Alpine Patroller yon 01-07-2023 Radiology Outside Office Copy [id number]#1.00 TIFF Normal [facility] Consent for Treatmenton 12-15 Consent for Treatment [id number]#1.00T IFF Normal [facility] Consultation Noteon 01-07-20 Consultation Note [...] red blood per rectum) / SNOMED CT 913694922 / Confirmed Breast cancer screening by mammogram / SNOMED CT 503121051 / Confirmed 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 / SNOMED CT 52230012 / Confirmed Change in bowel habits / SNOMED CT 670937621 / Confirmed Chronic renal impairment, stage 3a / SNOMED CT 5102977347 / Confirmed Claudication of both lower extremities / SNOMED CT 779969939 / Confirmed Colon polyp / SNOMED CT 417218144 / Confirmed Degenerative localized arthritis of hip / SNOMED CT 240710806 / Confirmed 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 / SNOMED CT 507643241 / Confirmed Diabetes / SNOMED CT 086073120 / Confirmed Diarrhea / SNOMED CT 544359352 / Confirmed Enthesopathy of left hip region / SNOMED CT 46257961 / Confirmed Familial hypercholesteremia / SNOMED CT 8979749938 / Confirmed Hemorrhoids / SNOMED CT 622218327 / Confirmed History of colon polyps / SNOMED CT 0578780027 / Confirmed History of DVT in adulthood / SNOMED CT 1759011450 / Confirmed HTN - Hypertension / SNOMED CT 5690571957 / Confirmed Hypertensive heart and chronic kidney disease without heart failure, with stage 1 through stage 4 chronic kidney disease, or unspecified chronic kidney disease / SNOMED CT 0106576293 / Confirmed noted in 12/10/2021 Nephrology Consult Note page 3. added per outpatient CDI policy. Long-term insulin use / SNOMED CT 7572140497 / Confirmed Current Medication List includes Tresiba. added per outpatient CDI policy. Lumbar disc herniation / SNOMED CT 879953740 / Confirmed Lumbar stenosis / SNOMED CT 96068137 / Confirmed Mild nonproliferative diabetic retinopathy of both eyes / SNOMED CT 339610408 / Confirmed noted in 08/21/2019 Diabetic Eye Exam. added per outpatient CDI policy. Morbid obesity / SNOMED CT 015124038 / Confirmed Non-smoker / SNOMED CT 87476632 / Confirmed Primary ovarian failure / SNOMED CT 844274765 / Confirmed Sleep apnea / SNOMED CT 869525306 / Confirmed Type 2 diabetes mellitus with hypercholesterolemia / SNOMED CT 390695571 / Confirmed linked DM with hypercholesterolemia per outpatient CDI policy. Type 2 diabetes mellitus with stage 3 chronic kidney disease / SNOMED CT 096132522 / Confirmed linked DM with CKD (more content not included)... Normal [facility] Comment on above: Result Comment: Elec tronically Signed By: Prashant PIMENTEL, Gary Damon.br\Date and Time Signed: 01/06/23 09:13 EDT HIPAA Forms Officeon 023 HIPAA Forms Office [id number] 022 [id number]#1.00 TIFF Normal [facility] Legal Correspondence Officeo n 01-06-2023 Legal Correspondence Office [id number]#1.00 TIFF [facility] Legal Correspondence Office [id number]#1.00 TIFF Normal [facility] Office/Clinic Note-Physician on 01-06-2023 Office/Clinic Note-Physician [id number]#1.00 TIFF Normal [facility] Patient Correspondenceon Patient Correspondence [id number]#1.00 TIFF Normal [facility] Patient Correspondence [id number]#1.00 TIFF Normal [facility] Patient Correspondence [id number]#1.00 TIFF Normal [facility] Patient Correspondence [id number]#1.00 TIFF Normal [facility] Patient Correspondence [id number]#1.00 TIFF Normal [facility] Patient History Officeon Patient History Office [id number]#1.00 TIFF Normal [facility] Radiology Outside Office Alpine Patroller yon 01-06-2023 Radiology Outside Office Copy [id number]#1.00 TIFF Normal [facility] Consent for Treatmenton 12-14 Consent for Treatment [id number]#1.00T IFF Normal [facility] MRI Pelvis (Bony) w/o contra [...] MD Transcribed by: KATEY Technologist: NUBIA Normal [facility] RAD - MRI Screening Formon 1 RAD - MRI Screening Form [id number]#1.00 TIFF Normal [facility] Physician Orderon 12-24-2022 Physician Order [id number]#1.00T IFF Normal [facility] Physician Order [id number]#1.00T IFF Normal [facility] Outside Records Officeon Outside Records Office [id number]#1.00 TIFF Normal [facility] Referrals Officeon 3 Referrals Office [id number] 021 [id number]#1.00 TIFF Normal [facility] Consultation Noteon 12-23-19 23 Consultation Note [id number] 002 [id number]#1.00T IFF Normal [facility] Physician Orderon 12-22-2022 Physician Order [id number] [id number]#1.00 TIFF Normal [facility] Ambulatory Visit Summaryon 1 Ambulatory Visit Summary NILOYOKASTALAW Kennedy :1950 Visit Date:12/18/2022 Ambulatory Visit Instructions Your Diagnosis Enthesopathy of left hip region Hypertensive heart and chronic kidney disease without heart failure, with stage 1 through stage 4 chronic kidney disease, or unspecified chronic kidney disease Long-term insulin use BMI 36.0-36.9,adult Morbid obesity Chronic renal impairment, stage 3a 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 [...] Appointments Thursday 8:00 AM EST With: Where: [facility] Normal [address] [address]- \.br\ You Need to Schedule the Following Appointments\.br\ Follow Up with Christopher WELLS DO, FAAFP, FAM, PED When: In 3 months\.br\ Where:\.br\ [address], [address]br\ [place] [address].br\ \.br\ Medications\.br\ What How Much When Why Instructions\.br\ New doxycycline (doxycycline hyclate 100 mg Cap) 1 Capsules By Mouth 2 times a day Venous stasis ulcer Refills: 1 Pickup at [facility]\.br\ Unchanged amlodipine (amLODIPine 5 mg Tab) 1 [...] Mouth Every day\.br\ Pharmacy Information\.br\ [id number]: [address] [place], [place] [id number] [phone]\.br\ Medications and Immunizations Administered\.br\ Not Given\.br\ influenza virus vaccine, inactivated, Patient Refuses\.br\ Allergies\.br\ Aldactazide (Hives)\.br\ Cardura (Unknown)\.br\ Diovan (Unknown)\.br\ Glucophage\.br\ Hytrin\.br\ Prinivil\.br\ Zestril (Diarrhea)\.br\ hydrochlorothiazi de-lisinopril (Diarrhea)\.br\ Problems\.br\ Ongoing - Any problem that you are currently receiving treatment for.\.br\ BRBPR (bright red blood per rectum)\.br\ Breast cancer screening by mammogram\.br\ 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 \.br\ Take or apply nmum-nxs-ieqhgzz and prescription medicines only as told by [...] cannot use soap and water, use hand farm planner.\.br\ ? \.br\ Change your bandage as told [...] for help if you feel david Elkins [facility] Office/Clini c Noteon 12-18-2022 Family [...] daily. 3. Long-term insulin use (Z79.4: termite helper (current) use of insulin) Tresiba 50 [...] in 6 (more content not included)... Normal [facility] Comment on above: Result Comment: Elec tronically Signed By: RUSSELL SHEPHERD FAAFP, Christopher Montenegro\.br\Date and Time Signed: 12/18/22 09:05 EDT Patient [...] at home: Medicines ? Take or apply gifr-tuj-glirhnl and prescription medicines only as told by [...] cannot use soap and water, use hand farm planner. ? Change your bandage as told by [...] day for signs of infection. ? Take fcrr-hsz-ijzcmne and prescription medicines only as told by your doctor. ? Keep all follow-up visits as told by your doctor. This is important. This information is not intended to replace advice given to you by your health care provider. Make sure you discuss any questions you have with your health care provider. Document Revised: 12/26/2021 Document Reviewed: 12/26/2021 [employer] Patient Education ? 2022 [employer] Normal [facility] Consultation Noteon 12-16-19 Consultation Note [id number] 002 [id number]#1.00C D:127 Normal [facility] MRI Spine Lumbar w/o Contras ton [...] by: KATEY Technologist: NUBIA Technical Comments None [facility] Consent for Treatmenton 11-15 Consent for Treatment [id number]#1.00C D:127 Normal [facility] RAD - MRI Screening Formon 0 12-08-2022 RAD - MRI Screening Form [id number]#1.00 CD:127 Normal [facility] Physician Orderon 11-26-2022 Physician Order [id number]#1.00CD :127 Normal [facility] Physician Order [id number]#1.00CD :127 Normal [facility] BD Bone Density DEXAon 11-25 [...] for osteopenia. Compared to prior study from 2010, 5.1% increase in BMD of the lumbar [...] REPORT Dictated: 11/25/2022 2:37 pm Jalil Booth MD. Signed (Electronic Signature): 11/25/2022 2:37 pm Signed by: Jalil Booth MD Transcribed by: KATEY Technologist: TRISTAN Gonzalez [facility] [place] Mamm Screen w/CAD if [...] very important to your health. The current [employer] and National Comprehensive Cancer [...] 2-Benign finding Recommendation: Normal interval follow-up Normal [facility] Consent for Treatmenton 11-14 Consent for Treatment [id number]#1.00C D:127 Normal [facility] Consultation Noteon 11-24-19 Consultation Note [id number] [id number]#1.00CD :127 Normal [facility] Consultation Noteon 11-14-19 Consultation Note [id number] [id number]#1.00C D:127 Normal [facility] Family Medicine Office/Clini c Noteon [...] and some weakness, I take WC to [place] so I walk and do Wheel Chair. Pain stays in the hip. After walking approximately 10 minutes at [place] patient needs to get into wheelchair secondary to the pain in her left hip. Patient reports no poor color no radiation of pain into left thigh and nor leg nor foot. Diabetes is now managed per Dr. Ruggiero, her last A1c at Dr. Ruggiero's office was 8.9 and the 1 prior to that was 13. Dr. Oliveira is her field operations manager and she believes she sees him next [...] We will refer to orthopedics here at [facility]. Physical therapy [facility]. Patient defers x-rays and well allow access orthopedics to perform at time of evaluation. Discussed possibility of bursitis and possible injection under fluoroscopy via orthopedics Ordered: [facility] External Ambulatory Referral [facility] Outpatient Physical Therapy Evaluate Patient, Develop a Plan of Care, & Implement Plan (more content not included)... Normal [facility] Comment on above: Result Comment: Elec tronically Signed By: RUSSELL SHEPHERD FAAFP, Christopher Montenegro\.maria teresa\Date and Time Signed: 11/06/22 08:56 EDT [...] these instructions at home: Medicines ? Take cull-cff-swjnawv and prescription medicines only as told by [...] Reviewed: 02/25/2022 Elsevier Patient Education ? 2022 [employer] Normal [facility] Physician Referralon 023 Physician Referral [id number]#1.00 CD:127 Normal [facility] US arterial duplex LE on 0 11-04-2022 US arterial duplex [address] [place] [address] Ultrasound Report Signed Patient: Evon Corcoran MR#: [id number] : 1950 Acct:[id number] Age/Sex: 72 / F ADM Date: 11/04/22 Loc: [facility] Room: Type: REG CLI Attending Dr: Renetta Barahona WOMEN SPECIALISTVickiC Ordering Provider: Renetta Barahona APRN Date of Service: 11/04/22 US/US arterial duplex LE LT: I70.212 Copies to: Renetta Barahona, KHALIDA Arterial duplex examination left lower extremity Indication [...] Miguel Membreno M.D.11/04/2022 1:09 PM Dictation Location: [place] [address] Tech: Adina Zuñiga Transcribed By: RICH 11/04/22 1309 Dictated By: Miguel Membreno MD 11/04/22 1307 Signed By: 11/04/22 1309 [facility] US ankle/arm indiceson 11-03 US ankle/arm indices [facility] Main [address] [address] Ultrasound Report Signed Patient: Evon Corcoran MR#: [id number] : 1950 Acct:[id number] Age/Sex: 72 / F ADM Date: 11/03/22 Loc: [facility] Room: Type: REG CLI Attending Dr: Miguel Membreno MD Ordering Provider: [...] Miguel Membreno M.D.11/03/2022 10:26 AM Dictation Location: [place] [address] Tech: Melita Pike Transcribed By: RICH 11/03/22 1026 Dictated By: Miguel Membreno MD 11/03/22 1024 Signed By: 11/03/22 1026 [facility] CHEMISTRYOrdered By: SYSTEM SYSTEM on 10-31-2022 [...] 1.3 mg/dL Normal 0.5 - 1.3 mg/dL [facility] Remisol GFR/1.73 sq M.predicted among non-blacks MDRD (S/P/Bld) [Vol rate/Area] 43 mL/min/1.73 m2 Low >=59mL/min/1.73 m2 [facility] Chem S Glucose [Mass/Vol] 316 mg/dL High 55 - 199 mg/dL [facility] Remisol Phosphate [Mass/Vol] 3.8 mg/dL Normal 1.9 - 4.6 mg/dL [facility] Remisol Potassium [Moles/Vol] 4.2 mmol/L Normal 3.5 - 5.3 mmol/L [facility] Remisol Sodium [Moles/Vol] 138 mmol/L Normal 135 - 145 mmol/L [facility] Remisol Urea nitrogen [Mass/Vol] 28 mg/dL High 5 - 21 mg/dL [facility] Remisol Urea nitrogen/Creatinine [Mass ratio] 22 mg/mg High 10 - 20 [facility] Remisol CHEMISTRYOrdered By: Jeniffer Rosas on 10-31-2022 Albumin Elph (U) [Mass fraction] 8.4 mg/dL Invalid Interpretation Code [facility] Remisol Creatinine (U) [Mass/Vol] 132.6 mg/dL Invalid Interpretation Code [facility] Remisol U Prot/Creat Ratio 63.30 mg/gm Cr Normal 0.00 - 200.00 mg/gm Cr [facility] Remisol Consent for Treatmenton 10-14 Consent for Treatment [id number]#1.00C D:127 Normal [facility] Physician Orderon 10-31-2022 Physician Order [id number]#1.00 CD:127 Normal [facility] Renal Panelon 10-31-2022 Albumin [Mass/Vol] 3.4 g/dL Normal 3.3-5.0 [facility] Comment on above: Performed By: #### 1 [id number], [id number] #### [facility] Laboratory [address] [place] [address] Anion gap [Moles/Vol] 11 mmol/L Normal 6-16 [facility] Comment on above: Performed By: #### 1 1475805, [id number] #### [facility] Laboratory [address] [place] [address] Calcium [Mass/Vol] 8.4 mg/dL Low 8.9-11.1 [facility] Comment on above: Performed By: #### 1 [id number], [id number] #### [facility] Laboratory [address] [place] [address] Chloride [Moles/Vol] 104 mmol/L Normal 101-111 [facility] Comment on above: Performed By: #### 1 8803691, [id number] #### [facility] Laboratory [address] [place] [address] CO2 [Moles/Vol] 27 mmol/L Normal 21-31 [facility] Comment on above: Performed By: #### 1 [id number], [id number] #### [facility] Laboratory [address] [place] [address] Creatinine [Mass/Vol] 1.3 mg/dL Normal 0.5-1.3 [facility] Comment on above: Performed By: #### 1 6678375, [id number] #### [facility] Laboratory [address] [place] [address] Glucose [Mass/Vol] 316 mg/dL High 55-199 [facility] Comment on above: Result Comment: If t his glucose result represents a fasting glucose, interpretation should refer to the following reference range: 55-99 mg/dL Performed By: #### 1 [id number], [id number] #### [facility] Laboratory [address] [place] [address] Phosphate [Mass/Vol] 3.8 mg/dL Normal 1.9-4.6 [facility] Comment on above: Performed By: #### 1 8043316, [id number] #### [facility] Laboratory [address] [place] [address] Potassium [Moles/Vol] 4.2 mmol/L Normal 3.5-5.3 [facility] Comment on above: Performed By: #### 1 0756606, [id number] #### [facility] Laboratory [address] [place] [address] Sodium [Moles/Vol] 138 mmol/L Normal 135-145 [facility] Comment on above: Performed By: #### 1 7803290, [id number] #### [facility] Laboratory [address] [place] [address] Urea nitrogen [Mass/Vol] 28 mg/dL High 5-21 [facility] Comment on above: Performed By: #### 1 [id number], [id number] #### [facility] Laboratory [address] [place] [address] Urea nitrogen/Creatinine [Mass ratio] 22 No Units High 10-20 [facility] Comment on above: Performed By: #### 1 [id number], [id number] #### [facility] Laboratory [address] [place] [address] U Protein/Creat Ratioon 10-14 Albumin Elph (U) [Mass fraction] 8.4 mg/dL Invalid Interpretation Code [facility] Comment on above: Result Comment: The reference range and other method performance specifications have not been established for this test; results should be integrated into the clinical context for interpretation. Performed By: #### 1 [id number], [id number] ####[facility] [address] [place] [address] Creatinine (U) [Mass/Vol] 132.6 mg/dL Invalid Interpretation Code [facility] Comment on above: Result Comment: The reference range and other method performance specifications have not been established for this test; results should be integrated into the clinical context for interpretation. Performed By: #### 1 [id number], [id number] ####[facility] [address] [place] [address] U Prot/Creat Ratio 63.30 mg/gm Cr Normal .00-200.00 [facility] Comment on above: Performed By: #### 1 [id number], [id number] ####[facility] [address] [place] [address] URINALYSISOrdered By: Rosa Chacon on 10-31-2022 Bacteria LM Ql (Urine sed) 1+ /HPF Invalid Interpretation Code Trace/HPF [facility] Auto SS Bilirubin Ql (U) Negative [...] AM) Normal Negative [facility] UA Auto SS [place].plasma/Lith ium.RBC (Bld) [Mass ratio] 0-3 /HPF Normal [...] Desc Clean Catch (10/31/22 7:33 AM) Normal [facility] UA Auto SS Urobilinogen Qn (U) 0.9048628 {Donell'U}/dL Normal 0.0 - 1.0 EU/dL [facility] UA Auto SS WBC Auto Ql (U) 1+ *ABN* (10/31/22 7:33 AM) Invalid Interpretation Code Negative [facility] UA Auto SS WBC LM.HPF (Urine sed) [#/Area] 6-15 /HPF Invalid Interpretation Code 0-5/HPF [facility] UA Auto SS Urinalysison 10-31-2022 Bacteria LM Ql (Urine sed) 1+ /HPF Abnormal Trace [facility] Comment on above: Performed By: #### 1 [id number], [id number] ####[facility] [address] [place] [address] Bilirubin Ql (U) Negative Normal Negative [facility] Comment on above: Performed By: #### 1 [id number], 07610170 ####[facility] [address] [place] [address] Clarity (U) CLEAR Normal Clear [facility] Comment on above: Performed By: #### 1 [id number], [id number] ####[address] [address] Color (U) YELLOW Normal Yellow [facility] Comment on above: Performed By: #### 1 [id number], 70845574 ####[address] [address] Epithelial cells.squamous LM.HPF (Urine sed) [#/Area] 0-2 Normal 0-2 [facility] Comment on above: Performed By: #### 1 [id number], [id number] ####[address] [address] Glucose Test strip (U) [Mass/Vol] 2+ Abnormal Negative [facility] Comment on above: Performed By: #### 1 [id number], [id number] ####[address] [address] Hemoglobin Ql (U) Negative Normal Negative [facility] Comment on above: Performed By: #### 1 [id number], [id number] ####[address] [address] Ketones (U) [Mass/Vol] Negative Normal Negative [facility] Comment on above: Performed By: #### 1 [id number], 62575155 ####[address] [address] [place].plasma/Lith ium.RBC (Bld) [Mass ratio] 0-3 Normal 0-3 [facility] Comment on above: Performed By: #### 1 [id number], [id number] ####[facility] [place] [address] Nitrite Ql (U) Negative Normal Negative [facility] Comment on above: Performed By: #### 1 [id number], 98940394 ####[address] [address] pH (U) 6.0 [pH] Invalid Interpretation Code 5.0-9.0 [facility] Comment on above: Performed By: #### 1 [id number], [id number] ####[address] [address] Protein (U) [Mass/Vol] Negative Normal Negative [facility] Comment on above: Performed By: #### 1 305279530, 17857582 ####[address] [address] Specific gravity (U) [Rel density] 1.025 Invalid Interpretation Code 1.005-1.030 [facility] Comment on above: Performed By: #### 1 [id number], 85399994 ####[address] [address] Type of Urine collection method Clean Catch Normal [facility] Comment on above: Performed By: #### 1 [id number], 14280726 ####[address] [address] Urobilinogen Qn (U) 0.2 {Donell'U}/dL Normal 0.0-1.0 [facility] Comment on above: Performed By: #### 1 618567032, 98181711 ####[address] [address] WBC Auto Ql (U) 1+ Abnormal Negative [facility] Comment on above: Performed By: #### 1 [id number], [id number] ####[facility] [address] [place] [address] WBC LM.HPF (Urine sed) [#/Area] 6-15 Abnormal 0-5 [facility] Comment on above: Performed By: #### 1 [id number], 47335701 ####[facility] [address] [place] [address] eGFRon 10-31-2022 GFR/1.73 sq M.predicted among non-blacks MDRD (S/P/Bld) [Vol rate/Area] 43 mL/min/1.73 m2 Low >=59 [facility] Comment on above: Order Comment: Order added by Discern Expert. Result Comment: Help Desk Support jin kidney disease could be indicated at eGFR's of less than 60 mL/min/1.73m2. Kidney failure is indicated at less than 15 mL/min/1.73m2. Performed By: #### 1 [id number], [id number] #### [facility] Laboratory [address] [place] [address] RAD - Ultrasound Reporton RAD - Ultrasound Report [id number]#1.00C D:127 Normal [facility] Retail - Clinical Noteon Retail - Clinical Note [id number]#1.00C D:127 Normal [facility] VASC LAB Carotid Artery Dupl ex Ultrasounon 09-17-2022 VASC LAB Carotid Artery Duplex Ultrasoun [address], [address] [place] [address] Vascular Lab Report Carotid Artery Duplex Ultrasound Patient Name: EVON Mckeon Physician: [id number] Fariha Guidry MD, [facility] Study Date: 09/17/2022 Referring FARIHA GUIDRY Physician: MRN/PID: [id number] PCP: Chrisotpher Wells DO Accession/Order#: [id number] CC Report to: Date of : 1950 Technologist: PRAVEENA Gender: F Technologist 2: Admission Status: Outpatient Location Performed: [facility] Diagnosis/ICD: K75-Kwpnjyznf and giddiness; I73.9-Peripheral vascular disease, unspecified Indication: CAD, PTCA, High Risk Medication Use, Vascular Disease, Diabetes, HTN, Hyperlipidemia, CKD-Stage III, DVT, MORALES, Obesity Procedure/CPT: 15261 Cerebrovascular Carotid Duplex scan complete-02162 CONCLUSIONS: Right Carotid: Findings are consistent with [...] cm/s Right Left ICA/CCA Ratio 1.4 2.0 79717 Fariha Guidry MD, FACC Final Normal [facility] VASC LAB Carotid Artery Dupl ex Ultrasoundon 09-17-2022 US.doppler Carotid arteries -[facility]Sandu feliz [address] DO Work Phone: Gastroenterology [...] (bright red blood per rectum) 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 Change in bowel habits Chronic renal impairment, stage 3a Claudication of both lower extremities Colon polyp Diarrhea Familial hypercholesteremia Hemorrhoids History of colon polyps History of DVT (more content not included)... Normal [facility] Comment on above: Result Comment: [...] Bulgur wheat. Millet. Quinoa. Bran muffins. Popcorn. [place] wafer crackers. Meats and other proteins [place] beans, kidney beans, and chase beans. Soybeans. [...] Cream cheese. Sour cream. Fats and oils [place]. Beverages Soft drinks. Other foods Cakes and [...] Document Revised: (more content not included)... Normal [facility] Medication Refillon 08-23-19 Medication Refill [id number] D:127 Normal [facility] CBC w/Indiceson 08-01-2022 Erythrocyte distribution width (RBC) [Ratio] 14.0 % Normal 10.9-14.2 [facility] Comment on above: Performed By: #### 2 [id number], [id number] #### [facility] Laboratory [address] [place] [address] Hematocrit (Bld) [Volume fraction] 39.9 % Normal 34.0-46.0 [facility] Comment on above: Performed By: #### 2 223069, 5446776 #### [facility] Laboratory [address] [place] [address] Hemoglobin (Bld) [Mass/Vol] 12.7 g/dL Normal 12.0-16.0 [facility] Comment on above: Performed By: #### 2 592578, 9201505 #### [facility] Laboratory [address] [place] [address] MCH (RBC) [Entitic mass] 27.9 pg Normal 27.0-34.0 [facility] Comment on above: Performed By: #### 2 000781, 0370693 #### [facility] Laboratory [address] [place] [address] MCHC (RBC) [Mass/Vol] 31.8 g/dL Normal 31.4-36.0 [facility] Comment on above: Performed By: #### 2 216658, 0301767 #### [facility] Laboratory [address] [place] [address] MCV (RBC) [Entitic vol] 87.6 fL Normal 80.0-100.0 [facility] Comment on above: Performed By: #### 2 218484, 5729410 #### [facility] Laboratory [address] [place] [address] Platelet mean volume (Bld) [Entitic vol] 10.5 fL Normal 6.4-10.8 [facility] Comment on above: Performed By: #### 2 934886, 2364138 #### [facility] Laboratory [address] [place] [address] Platelets (Bld) [#/Vol] 227.0 E9/L Normal 150.0-500.0 [facility] Comment on above: Performed By: #### 2 131718, 9208662 #### [facility] Laboratory [address] [place] [address] RBC (Bld) [#/Vol] 4.6 E12/L Normal 4.3-5.9 [facility] Comment on above: Performed By: #### 2 179449, 6800352 #### [facility] Laboratory [address] [place] [address] WBC corrected for nucl RBC Auto (Bld) [#/Vol] 7.3 E9/L Normal 4.0-11.0 [facility] Comment on above: Performed By: #### 2 270068, 6853638 #### [facility] Laboratory [address] [place] [address] Consent for Treatmenton 07-14 Consent for Treatment [id number] D:127 Normal [facility] Lipid Panelon 08-01-2022 Cholesterol [Mass/Vol] 128 mg/dL Normal 120-200 [facility] Comment on above: Performed By: #### 2 588208, 9022717 #### [facility] Laboratory [address] [place] [address] Cholesterol in HDL [Mass/Vol] 47 mg/dL Invalid Interpretation Code [facility] Comment on above: Result Comment: HDL > or equal to 60 mg/dL: Low cardiovascular risk HDL < 40 mg/dL : High cardiovascular risk Performed By: #### 2 062690, 0343470 #### [facility] Laboratory [address] [place] [address] Cholesterol in LDL [Mass/Vol] 59 mg/dL Normal <=129 [facility] Comment on above: Performed By: #### 2 918025, 7181786 #### [facility] Laboratory [address] [place] [address] Cholesterol in VLDL [Mass/Vol] 27 mg/dL Normal 7-40 [facility] Comment on above: Performed By: #### 2 146246, 7173970 #### [facility] Laboratory [address] [place] [address] Triglyceride [Mass/Vol] 133 mg/dL Normal <=149 [facility] Comment on above: Performed By: #### 2 152367, 6534946 #### [facility] Laboratory [address] [place] [address] Physician Orderon 08-01-2022 Physician Order [id number]#1.00 CD:127 Normal [facility] Retail - Clinical Noteon Retail - Clinical Note [id number]#1.00C D:127 Normal [facility] MICRO OTHER TESTSOrdered By: Cynthia Case on 05-08-2022 Fecal WBC Lactoferrin Negative (05/08/22 9:00 AM) Normal Negative [facility] Man Sero Blood Urea Nitrogenon 2022 Urea nitrogen [Mass/Vol] 30 mg/dL High 12-06 [facility] Comment on above: Performed By: #### C REAT, BUN #### [facility] [address] [place] [id number] [place] Creatinineon 04-07-2022 Creatinine [Mass/Vol] 1.21 mg/dL High 0.44-1.03 [facility] Comment on above: Performed By: #### C REAT, BUN #### [facility] [address] [place] [address] [place] Creatinine Clr Calc Pharmacy 46.76 [facility] Comment on above: Result Comment: PERF ORMED BY: [place] [address] PATHOLOGIST [employer] WORKER AIRAM ROMEO M.D. Performed By: #### C REAT, BUN #### [facility] [address] Estimated GFR ( Laura 53 [facility] Comment on above: Result Comment: GFR estimated reference range: According to KDOQI guidelines, <60 ml/min/1.73m2 is sufficient to diagnose a patient with chronic kidney disease. Performed By: #### C REAT, BUN #### [facility] [address] [place] [address] [place] Estimated GFR (Non- Am 44 [facility] Comment on above: Performed By: #### C REAT, BUN #### [facility] [address] [place] [address] [place] Creatinine and Glomerular fi ltration rate.predicted panel (S/P/Bld)Ordered By: Miguel Membreno on 04-07-2022 Creatinine [Mass/Vol] 1.21 mg/dL 0.44-1.03 [facility] Estimated glomerular filtrat ion rate (GFR) non- AmericanOrdered By: Miguel Membreno on 04-07-2022 GFR/1.73 sq M.predicted among non-blacks MDRD (S/P/Bld) [Vol rate/Area] 44 mL/Min [facility] No Panel InformationOrdered By: Miguel Membreno on 04-07-2022 Estimated GFR () 53 mL/Min [facility] Comment on above: GFR estimated refere nce range: According to KDOQI guidelines, <60 ml/min/1.73m2 is sufficient to diagnose a patient with chronic kidney disease. Pharmacy Creatinine Clearance (Chem 46.76 [facility] Serum or plasma urea nitroge n measurement (mass/volume)Ordered By: Miguel Membreno on 04-07-2022 Urea nitrogen [Mass/Vol] 30 mg/dL 12-06 [facility] CHEMISTRYOrdered By: Genaro Rivera on 03-31-2022 Albumin Elph (U) [Mass fraction] mg/dL Invalid Interpretation Code [facility] Remisol Creatinine (U) [Mass/Vol] 95.7 mg/dL Invalid Interpretation Code [facility] Remisol U Prot/Creat Ratio RUST Invalid Interpretation Code 0.00 - 200.00 [facility] Remisol CHEMISTRYOrdered By: SYSTEM SYSTEM on 03-31-2022 Albumin [Mass/Vol] 3.7 g/dL Normal 3.3 - 5.0 gm/dL F [facility] Remisol Anion gap [Moles/Vol] 16 mmol/L Normal 6 - 16 mEq/L [facility] Remisol Calcium [Mass/Vol] 8.8 mg/dL Low 8.9 - 11.1 mg/dL [facility] Remisol Chloride [Moles/Vol] 103 mmol/L Normal 101 - 111 mmol/L [facility] Remisol CO2 [Moles/Vol] 25 mmol/L Normal 21 - 31 mmol/L [facility] Remisol Creatinine [Mass/Vol] 1.4 mg/dL High 0.5 - 1.3 mg/dL [facility] Remisol GFR/1.73 sq M.predicted among blacks MDRD (S/P/Bld) [Vol rate/Area] 45 mL/min/1.73 m2 Low >=59mL/min/1.73 m2 [facility] Chem S GFR/1.73 sq M.predicted among non-blacks MDRD (S/P/Bld) [Vol rate/Area] 37 mL/min/1.73 m2 Low >=59mL/min/1.73 m2 [facility] Chem S Glucose [Mass/Vol] 203 mg/dL High 55 - 199 mg/dL [facility] Remisol Magnesium [Mass/Vol] 2.1 mg/dL Normal 1.3 - 2.4 mg/dL [facility] Remisol Phosphate [Mass/Vol] 4.7 mg/dL High 1.9 - 4.6 mg/dL [facility] Remisol Potassium [Moles/Vol] 3.8 mmol/L Normal 3.5 - 5.3 mmol/L [facility] Remisol Sodium [Moles/Vol] 140 mmol/L Normal 135 - 145 mmol/L [facility] Remisol Urea nitrogen [Mass/Vol] 29 mg/dL High 5 - 21 mg/dL [facility] Remisol Urea nitrogen/Creatinine [Mass ratio] 21 mg/mg High 10 - 20 [facility] Remisol HEMATOLOGYOrdered By: Chai Reid on 03-31-2022 Hematocrit (Bld) [Volume fraction] 39.5 % Normal 34.0 - 46.0 % [facility] HemeAutoSS Hemoglobin (Bld) [Mass/Vol] 12.6 g/dL Normal 12.0 - 16.0 gm/dL [facility] HemeAutoSS Reference Laboratory Testing Ordered By: Angelica Casas on 03-31-2022 Test Code 244400 Invalid Interpretation Code [facility] SendOuts Test Code 494228 Invalid Interpretation Code [facility] SendOutsSS Test Name MPO AB Invalid Interpretation Code [facility] SendOutsSS Test Name PR3 AB Invalid Interpretation Code [facility] SendOutsSS URINALYSISOrdered By: Elizabeth Rosas on 03-31-2022 Bilirubin Ql (U) Negative (03/31/22 7:43 AM) Normal Negative [facility] UA Auto SS Clarity (U) Clear (03/31/22 7:43 AM) Normal Clear [facility] UA Auto SS Color (U) Yellow (03/31/22 7:43 AM) Normal Yellow [facility] UA Auto SS Epithelial cells.squamous LM.HPF (Urine sed) [#/Area] 0-2 /HPF Normal 0-2/HPF [facility] UA Auto SS Glucose Test strip (U) [Mass/Vol] 3+ *ABN* (03/31/22 7:43 AM) Invalid Interpretation Code Negative [facility]A Auto SS Hemoglobin Ql (U) Negative (03/31/22 7:43 AM) Normal Negative [facility] UA Auto SS Ketones (U) [Mass/Vol] Negative (03/31/22 7:43 AM) Normal Negative [facility] UA Auto SS [place].plasma/Lith ium.RBC (Bld) [Mass ratio] 0-3 /HPF Normal 0-3/HPF [facility] UA Auto SS Nitrite Ql (U) Negative (03/31/22 7:43 AM) Normal Negative [facility] UA Auto SS pH (U) 5.5 *NA* (03/31/22 7:43 AM) Invalid Interpretation Code 5.0 - 9.0 [facility] UA Auto SS Protein (U) [Mass/Vol] Negative (03/31/22 7:43 AM) Normal Negative [facility] UA Auto SS Specific gravity (U) [Rel density] 1.015 *NA* (03/31/22 7:43 AM) Invalid Interpretation Code 1.005 - 1.030 [facility] UA Auto SS UA Spec Desc Clean Catch (03/31/22 7:43 AM) Normal [facility] UA Auto SS Urobilinogen Qn (U) [id number] {Donell'U}/dL Normal 0.0 - 1.0 EU/dL [facility] UA Auto SS WBC Auto Ql (U) Negative (03/31/22 7:43 AM) Normal Negative [facility] UA Auto SS WBC LM.HPF (Urine sed) [#/Area] 0-5 /HPF Normal 0-5/HPF [facility] UA Auto SS US ankle/arm indiceson 03-31 US ankle/arm indices [facility] [place] [address] Ultrasound Report Signed Patient: Evon Corcoran MR#: [id number] : 1950 Acct:[id number] Age/Sex: 71 / F ADM Date: 03/31/22 Loc: [facility]: [facility]: Miguel Membreno MD Ordering Provider: [...] Miguel Membreno M.D.03/31/2022 3:38 PM Dictation Location: [place] [address] Tech: Christy Chiqui Transcribed By: RICH 03/31/221537 Dictated By: Miguel Membreno MD 03/31/221536 Signed By: 03/31/221537 [facility] CHEMISTRYOrdered By: Jenni Lazaro on 02-12-2022 HbA1c (Bld) [Mass fraction] 9.3 % High <=5.9% [facility] ChemAutoSS Office Visit (Cardiology)on 01-15-2022 Follow-up visit Diagnoses/Problems Assessed Atherosclerosis of enterprise coronary artery of enterprise heart without angina pectoris (414.01) (I25.10) Status [...] vein thrombosis (453.40) (I82.409) Orders Atherosclerosis of enterprise coronary artery of enterprise heart without angina pectoris Renew: Aspirin EC [...] complications. 5. Diabetes, managed by endocrinology in [place]. A1c remains above target 6. Hypertension completely under control. 7. High-risk medication with Xarelto, so far well-tolerated. Takes baby aspirin twice weekly 8. Stage III chronic kidney disease to be monitored closely 9. Recent diagnosis of intermittent claudications and PAD followed by vascular surgery Dr. Daniel in [place], she is currently going through walking exercise program Fariha Guidry MD, [facility] Current Meds Medication NameInstruction amLODIPine Besylate [...] and no (more content not included)... Normal [facility] Tobacco Screening.on 022 Fall risk assessment a) No falls within the last year [facility] [employer] 600 DO Work Phone: Tobacco use status [facility] b) No [facility] [employer] [facility] Work Phone: CHEMISTRYOrdered By: Lab ROP User on 01-06-2022 Glucose [Mass/Vol] 166 mg/dL High 55 - 99 mg/dL [facility] C POC Subsection POC Device SN [id number] Invalid Interpretation Code [facility] POC Subsection POC User ID [id number] Invalid Interpretation Code [facility] POC Subsection POC Username ROSSY ZEPEDA Invalid Interpretation Code [facility] POC Subsection Glucose [Mass/Vol] 166 mg/dL High 55 - 99 mg/dL [facility] C POC Subsection Comment on above: Result Comment: Rain evert Meter POC Device SN [id number] Invalid Interpretation Code [facility] POC Subsection POC User ID [id number] Invalid Interpretation Code [facility] POC Subsection POC Username MILES, ROXANA Invalid Interpretation Code [facility] POC Subsection CHEMISTRYOrdered By: Lab ROP User on 01-01-2022 Glucose [Mass/Vol] 185 mg/dL High 55 - 99 mg/dL [facility] C POC Subsection Comment on above: Result Comment: Rain evert Meter POC Device SN [id number] Invalid Interpretation Code [facility] POC Subsection POC User ID [id number] Invalid Interpretation Code [facility] POC Subsection POC Username JD ROXANA Invalid Interpretation Code FT POC Subsection CHEMISTRYOrdered By: Chiquita Zapata on 09-24-2021 Albumin DL <= 20 mg/L (U) [Mass/Vol] 15.8 microgram/mL Normal 0.0 - 19.0 mcg/mL FT Remisol ALT No additional P-5'-P [Catalytic activity/Vol] 39 [iU]/d Normal 6 - 46 Int._Unit/L [facility] Chem S AST [Catalytic activity/Vol] 43 [iU]/d Normal 5 - 43 Int._Unit/L [facility] Chem S Bilirubin [Mass/Vol] 1.3 mg/dL High 0.0 - 1.1 mg/dL [facility] Chem S Bilirubin.direct [Mass/Vol] 0.4 mg/dL Normal [...] 23 mg/dL Normal 7 - 40 mg/dL [facility] Remisol CO2 [Moles/Vol] 31 mmol/L Normal 21 - 31 mmol/L [facility] Creatinine [Mass/Vol] 1.2 mg/dL Normal 0.5 - 1.3 mg/dL [facility] Remisol GFR/1.73 sq M.predicted among blacks MDRD (S/P/Bld) [Vol rate/Area] 54 mL/min/1.73 m2 Low >=59mL/min/1.73 m2 [facility] Chem S GFR/1.73 sq M.predicted among non-blacks MDRD (S/P/Bld) [Vol rate/Area] 44 mL/min/1.73 m2 Low >=59mL/min/1.73 m2 [facility] Chem S Globulin (S) [Mass/Vol] 3.8 g/dL Normal 1.4 - 4.0 gm/dL [facility] Remisol Glucose [Mass/Vol] 153 mg/dL Normal 55 - 199 mg/dL [facility] Protein [Mass/Vol] 7.3 g/dL Normal 6.0 - 7.8 gm/dL [facility] Remisol Sodium [Moles/Vol] 138 mmol/L Normal 135 - 145 mmol/L [facility] Remisol Triglyceride [Mass/Vol] 116 mg/dL Normal <=149mg/dL [facility] Remisol Urea nitrogen [Mass/Vol] 22 mg/dL High 5 - 21 mg/dL [facility] Remisol Urea nitrogen/Creatinine [Mass ratio] 18 mg/mg Normal 10 - 20 [facility] Remisol CHEMISTRYOrdered By: Kevin rick on 09-24-2021 HbA1c (Bld) [Mass fraction] 13.1 % High <=5.9% [facility] ChemAutoSS HEMATOLOGYOrdered By: SYSTEM SYSTEM on 09-24-2021 [...] E12/L Normal 4.3 - 5.9 E12/L FT HemeAutoSS WBC corrected for nucl RBC Auto (Bld) [#/Vol] 7.5 E9/L Normal 4.0 - 11.0 E9/L [facility] HemeAutoSS Falls Risk Screeningon 05-28 Fall risk assessment a) No falls within the last year [facility] [employer] 600 DO Work Phone: Heart Rate Regular [facility] [employer] 600 DO Work Phone: Office Visit (Cardiology)on [...] of your visit. Follow up in Jan scheduled. Same meds Chief Complaint EVON CORCORAN [...] Zestril Adverse Reaction; Diarrhea; Recorded By: Virgie Farnce; 03/27/2021 12:10:05 AM Vitals Vital Signs Recorded: 28May2021 12:25PMRecorded: 28May2021 12:21PM Nweyjdhf680, LUE, Yobdqmz014, RUE, Sitting Nuflvoorx57, LUE, Huiccan84, RUE, Sitting Heart Rate68, R Radial Pulse QualityRegular, R Radial Height5 ft 5 in Bwvqmr332 lb 3.2 oz BMI Edssfkvcwf99.98 kg/m2 BSA Calculated2 Fall Screeninga) No falls within the last year Signatures Electronically signed by : Fariha Guidry MD; May 28 2021 3:34PM EST (Author) Normal [facility] - Chemistry and C hemistry - challengeon 05-11-2021 Cholesterol [Mass/Vol] 96 mg/dL Normal <=129 [facility] [employer] 250 DO Work Phone: Cholesterol in LDL [Mass/Vol] 39 mg/dL Normal 7-40 [facility] [employer] 250 DO Work Phone: CO2 [Moles/Vol] 24 mmol/L Normal 21-31 [facility] 250 DO Work Phone: Glucose [Mass/Vol] 217 mg/dL above high threshold 55-199 [place] [address] DO Work Phone: Comment on above: If this glucose resu lt represents a fasting glucose, interpretation should refer to the following reference range: 55-99 mg/dL Laboratory - Hematology and Cell countson 05-11-2021 Erythrocyte distribution width (RBC) [Ratio] 13.2 % Normal 10.9-14.2 [facility] Work Phone: Hematocrit (Bld) [Volume fraction] 39.5 % Normal 34.0-46.0 [place] [address] DO Work Phone: Platelet mean volume (Bld) [Entitic vol] 11.0 fL above high threshold 6.4-10.8 [facility] Work Phone: No Panel Informationon 05-11 14 {mEq/L} Normal 6-16 [place] [address] DO Work Phone: 102 mmol/L Normal 101-111 [place] [address] DO Work Phone: 4.2 mmol/L Normal 3.5-5.3 [facility] [employer] 250 DO Work Phone: 136 mmol/L Normal 135-145 [facility] [employer] 250 DO Work Phone: 8.9 mg/dL Normal 8.9-11.1 [facility] 250 DO Work Phone: 25 {No_Units} above high threshold 10-20 [facility] DO Work Phone: 1.0 mg/dL Normal 0.5-1.3 [facility] 250 DO Work Phone: 25 mg/dL above high threshold 5-21 -[facility] [employer]per 250 DO Work Phone: >60 Normal >=59 [facility] [employer] 250 DO Work Phone: Comment on above: eGFR is race adjuste d. AA=. 55 {mL/min/1.73_m2} below low threshold >=59 [facility] [employer] 250 DO Work Phone: Comment on above: Chronic kidney disea se could be indicated at eGFR's of less than 60 mL/min/1.73m2. Kidney failure is indicated at less than 15 mL/min/1.73m2. 54 {Int._Unit/L} above high threshold 6-46 -[facility] [employer] 250 DO Work Phone: 67 {Int._Unit/L} above high threshold 5-43 [facility] [employer] 250 DO Work Phone: 197 mg/dL above high threshold <=149 [facility] [employer] 250 DO Work Phone: 49 mg/dL [facility] [employer] 250 DO Work Phone: Comment on above: HDL > or equal to 60 mg/dL: Low cardiovascular riskHDL < 40 mg/dL : High cardiovascular risk 193 mg/dL Normal 120-200 [facility] [employer] 250 DO Work Phone: 229.0 {E9/L} Normal 150.0-500.0 [facility] [employer] 250 DO Work Phone: Comment on above: Slide reviewed by BR Platelet count verified using smear estimate. 85.4 fL Normal 80.0-100.0 [facility] [employer] 250 DO Work Phone: 33.5 {gm/dL} Normal 31.4-36.0 [facility] Satnam piper 250 DO Work Phone: 28.7 pg Normal 27.0-34.0 [facility] [employer] fel[employer] 250 DO Work Phone: 13.2 {gm/dL} Normal 12.0-16.0 [facility] fel[employer] 250 DO Work Phone: 4.6 {E12/L} Normal 4.3-5.9 [facility] [employer] 250 DO Work Phone: 6.7 {E9/L} Normal 4.0-11.0 [facility] [employer] 250 DO Work Phone: Office Visit (Cardiology)on 05-08-2021 Follow-up visit Diagnoses/Problems Assessed Atherosclerosis of enterprise coronary artery of enterprise heart without angina pectoris (414.01) (I25.10) Chronic kidney disease, stage 3 (585.3) (N18.30) Deep vein thrombosis (453.40) (I82.409) Essential hypertension (401.9) (I10) High risk medication use (V58.69) (Z79.899) Hyperlipidemia (272.4) (E78.5) Status post coronary angioplasty (V45.82) (Z98.61) Never a smoker Class 1 obesity with body mass index (BMI) of 34.0 to 34.9 in adult (278.00,V85.34) (E66.9,Z68.34) Orders Atherosclerosis of enterprise coronary artery of enterprise heart without angina pectoris Renew: Aspirin EC 81 MG Oral Tablet Delayed Release; TAKE ONE TABLET THURSDAY AND THURSDAY Renew: Losartan Potassium 50 MG Oral Tablet; TAKE 1 TABLET TWICE DAILY Atherosclerosis of enterprise coronary artery of enterprise heart without angina pectoris, Chronic kidney disease, stage 3, High risk medication use Basic Metabolic Panel; Status:Active - Retrospective Authorization; Requested for:[id number]; Complete Blood Count; Status:Active - Retrospective Authorization; Requested for:[id number]; Atherosclerosis of enterprise coronary artery of enterprise heart without angina pectoris, Essential hypertension Renew: Metoprolol Succinate ER 50 MG Oral Tablet Extended Release 24 Hour; TAKE 1 TABLET Daily Atherosclerosis of enterprise coronary artery of enterprise heart without angina pectoris, Hyperlipidemia ALT - [...] a smoker Tobacco Use Screening; Status:Complete; Done: 08May2021 Unlinked Stop: Xarelto 20 MG Oral Tablet [...] to be monitored closely Fariha Guidry MD, [facility] Surgical History Problems History of Angioplasty History of Cholecystectomy History of Colonoscopy History of Hysterectomy Past Medical History Problems History of angina pectoris (V12. (more content not included)... Normal [employer] Tobacco Screening.on 022 Adult depression screening assessment No [facility] [employer] 250 DO Work Phone: Fall risk assessment a) No falls within the last year [facility] [employer] 250 DO Work Phone: Tobacco use status [facility] b) No [facility] [employer] 250 DO Work Phone: Vital Signs Date Time Vital Sign Value Performing Clinician Facility 06-09-2023 09:44-0400 Body height 165.1 cm [facility] 06-09-2023 09:44-0400 Body mass index (BMI) [Ratio] 33.3 kg/m2 [facility] 06-09-2023 09:44-0400 Body temperature 96.4 [degF] [facility] 06-09-2023 09:44-0400 Body weight 90.71 kg [facility] 06-09-2023 09:44-0400 Diastolic blood pressure 76 mm[Hg] [facility] 06-09-2023 09:44-0400 Heart rate 69 /min [facility] 06-09-2023 09:44-0400 SaO2% (BldA) [Mass fraction] 97 % [facility] 06-09-2023 09:44-0400 Systolic blood pressure 152 mm[Hg] [facility] 04-10-2023 09:19-0500 Body temperature 98.42 [degF] [facility] 04-10-2023 09:19-0500 Diastolic blood pressure 68 mm[Hg] [facility] 04-10-2023 09:19-0500 Heart rate 82 /min [facility] 04-10-2023 09:19-0500 Respiratory rate 16 /min [facility] 04-10-2023 09:19-0500 SaO2% (BldA) [Mass fraction] 97 % [facility] 04-10-2023 09:19-0500 Systolic blood pressure 168 mm[Hg] [facility] 03-20-2023 09:00-0500 Blood Pressure Location Christopher KAPLE [facility] 03-20-2023 09:00-0500 Body temperature 98.42 [degF] Christopher KAPLE [facility] 03-20-2023 09:00-0500 Diastolic blood pressure 80 mm[Hg] Christopher KAPLE [facility] 03-20-2023 09:00-0500 Heart rate 70 /min Christopher KAPLE [facility] 03-20-2023 09:00-0500 Respiratory rate 16 /min Christopher KAPLE [facility] 03-20-2023 09:00-0500 SaO2% (BldA) [Mass fraction] 99 % Christopher KAPLE [facility] 03-20-2023 09:00-0500 Systolic blood pressure 132 mm[Hg] Christopher WELLS [facility] 03-04-2023 09:09-0500 Heart rate 80 /min Nicola Willie [facility] 03-04-2023 09:09-0500 SaO2% (BldA) [Mass fraction] 99 % Nicola Willie [facility] 03-04-2023 09:09-0500 Diastolic blood pressure 67 mm[Hg] Petersen Willie [facility] 03-04-2023 09:09-0500 Mean blood pressure 91 mm[Hg] Nicola Tapia [facility] 03-04-2023 09:09-0500 Systolic blood pressure 138 mm[Hg] Nicola Tapia [facility] 03-04-2023 09:09-0500 Respiratory rate 16 /min Petersen Willie [facility] 03-04-2023 09:04-0500 Diastolic blood pressure 96 mm[Hg] Nicola Tapia [facility] 03-04-2023 09:04-0500 Heart rate 84 /min Nicola Tapia [facility] 03-04-2023 09:04-0500 SaO2% (BldA) [Mass fraction] 98 % Nicola Tapia [facility] 03-04-2023 09:04-0500 Systolic blood pressure 165 mm[Hg] Nicola Tapia [facility] 03-04-2023 08:12-0500 Heart rate 82 /min Nicola Tapia [facility] 03-04-2023 08:12-0500 SaO2% (BldA) [Mass fraction] 97 % Nicola Tapia [facility] 03-04-2023 08:12-0500 Diastolic blood pressure 75 mm[Hg] Nicola Tapia [facility] 03-04-2023 08:12-0500 Mean blood pressure 103 mm[Hg] Nicola Tapia [facility] 03-04-2023 08:12-0500 Systolic blood pressure 159 mm[Hg] Nicola Tapia [facility] 03-04-2023 08:12-0500 Body temperature 98.42 [degF] Nicola Tapia [facility] 03-04-2023 08:11-0500 Respiratory rate 14 /min Nicola Tapia [facility] 03-03-2023 11:45-0500 Body height 165.1 cm Miguel Membreno Other [employer] Other 03-03-2023 11:45-0500 Body mass index (BMI) [Ratio] 33.28 kg/m2 Miguel Membreno Other [employer] Other 03-03-2023 11:45-0500 Body temperature 97.8 [degF] Miguel Membreno Other [employer] Other 03-03-2023 11:45-0500 Body weight 90.72 kg Miguel Membreno Other [employer] Other 03-03-2023 11:45-0500 Diastolic blood pressure 72 mm[Hg] Miguel Membreno Other [employer] Other 03-03-2023 11:45-0500 SaO2% (BldA) [Mass fraction] 96 % Miguel Membreno Other [employer] Other 03-03-2023 11:45-0500 Systolic blood pressure 124 mm[Hg] Miguel Membreno Other [facility] [employer] Other 02-18-2023 13:40-0500 Diastolic blood pressure 70 mm[Hg] DO Christopher Kaple Work Phone: [facility] 02-18-2023 13:40-0500 Heart rate 64 /min DO Christopher Kaple Work Phone: [facility] 02-18-2023 13:40-0500 Respiratory rate 16 /min DO Christopher Kaple Work Phone: [facility] 02-18-2023 13:40-0500 SaO2% (BldA) [Mass fraction] 98 % DO Christopher Kaple Work Phone: [facility] 02-18-2023 13:40-0500 Systolic blood pressure 169 mm[Hg] DO Christopher Kaple Work Phone: [facility] 02-18-2023 12:40-0500 Inhaled oxygen flow rate 1 L/min DO Christopher Kaple Work Phone: [facility] 02-18-2023 09:15-0500 Body height 165.1 cm DO Christopher Kaple Work Phone: [facility] 02-18-2023 09:15-0500 Body weight 97.52 kg DO Christopher Kaple Work Phone: [facility] 02-16-2023 13:23-0500 Heart rate 76 /min Gary Prashant [facility] 02-16-2023 13:23-0500 SaO2% (BldA) [Mass fraction] 96 % Gary Prashant [facility] 02-16-2023 13:22-0500 Diastolic blood pressure 80 mm[Hg] Gary Prashant [facility] 02-16-2023 13:22-0500 Mean blood pressure 105 mm[Hg] Gary Cerda [facility] 02-16-2023 13:22-0500 Systolic blood pressure 155 mm[Hg] Gary Cerda [facility] 02-16-2023 13:22-0500 Body temperature 97.7 [degF] Gary Cerda [facility] 02-16-2023 13:21-0500 Respiratory rate 16 /min Gary Cerda [facility] 02-12-2023 09:03-0500 Body height 165.1 cm Fariha Guidry MD Work Phone: [facility] 02-12-2023 09:03-0500 Body mass index (BMI) [Ratio] 35.78 kg/m2 Fariha Guidry MD Work Phone: [facility] 02-12-2023 09:03-0500 Body weight 97.52 kg Fariha Guidry MD Work Phone: [facility] 02-12-2023 09:03-0500 Diastolic blood pressure 64 mm[Hg] Fariha Guidry MD Work Phone: [facility] 02-12-2023 09:03-0500 Heart rate 64 /min Fariha Guidry MD Work Phone: [facility] 02-12-2023 09:03-0500 Systolic blood pressure 120 mm[Hg] Fariha Guidry MD Work Phone: [facility] 01-26-2023 08:00-0500 Blood Pressure Location Christopher WELLS [facility] 01-26-2023 08:00-0500 Body temperature 98.6 [degF] Christopher WELLS [facility] 01-26-2023 08:00-0500 Diastolic blood pressure 72 mm[Hg] Christopher KAPLE [facility] 01-26-2023 08:00-0500 Heart rate 65 /min Christopher KAPLE [facility] 01-26-2023 08:00-0500 SaO2% (BldA) [Mass fraction] 96 % Christopher KAPLE [facility] 01-26-2023 08:00-0500 Systolic blood pressure 124 mm[Hg] Christopher KAPLE [facility] 01-06-2023 08:13-0400 Diastolic blood pressure 78 mm[Hg] Gary Prashant [facility] 01-06-2023 08:13-0400 Heart rate 69 /min Gary Prashant [facility] 01-06-2023 08:13-0400 Mean blood pressure 107 mm[Hg] Gary Prashant [facility] 01-06-2023 08:13-0400 Respiratory rate 14 /min Gary Prashant [facility] 01-06-2023 08:13-0400 Systolic blood pressure 166 mm[Hg] Gary Prashant [facility] 01-05-2023 09:15-0400 Body height 165.1 cm Miguel Membreno Other [employer] Other 01-05-2023 09:15-0400 Body mass index (BMI) [Ratio] 33.28 kg/m2 Miguel Membreno Other [employer] [employer] Other 01-05-2023 09:15-0400 Body temperature 96.3 [degF] Miguel Buehrer Other [employer] Other 01-05-2023 09:15-0400 Body weight 90.72 kg Miguel Maierehrer Other [employer] Other 01-05-2023 09:15-0400 Diastolic blood pressure 62 mm[Hg] Miguel Buehrer Other [employer] Other 01-05-2023 09:15-0400 SaO2% (BldA) [Mass fraction] 97 % Miguel Buehrer Other [employer] Other 01-05-2023 09:15-0400 Systolic blood pressure 120 mm[Hg] Miguel Buehrer Other [employer] Other 11-04-2022 12:00-0400 Body height 165.1 cm Miguel Martinezrer Other [employer] Other 11-04-2022 12:00-0400 Body mass index (BMI) [Ratio] 33.28 kg/m2 Miguel Martinezrer Other [employer] Other 11-04-2022 12:00-0400 Body temperature 97.1 [degF] Miguel Martinezrer Other [employer] Other 11-04-2022 12:00-0400 Body weight 90.72 kg Miguel Maierehrer Other [employer] Other 11-04-2022 12:00-0400 Diastolic blood pressure 70 mm[Hg] Miguel Buehrer Other [employer] Other 11-04-2022 12:00-0400 SaO2% (BldA) [Mass fraction] 95 % Miguel Martinezkym Other [employer] Other 11-04-2022 12:00-0400 Systolic blood pressure 140 mm[Hg] Miguel Butchermelissa Other [employer] Other 11-03-2022 10:30-0400 Body height 165.1 cm Renetta Patjulesmelissa Other [employer] Other 11-03-2022 10:30-0400 Body mass index (BMI) [Ratio] 33.28 kg/m2 Renetta Patmargaret Other [employer] Other 11-03-2022 10:30-0400 Body temperature 97.6 [degF] Renetta Patmargaret Other [employer] Other 11-03-2022 10:30-0400 Body weight 90.72 kg Renetta Barahona Other [employer] Other 11-03-2022 10:30-0400 Diastolic blood pressure 76 mm[Hg] Renetta Brooklyn Other [employer] Other 11-03-2022 10:30-0400 SaO2% (BldA) [Mass fraction] 98 % Renetta Patmargaret Other [employer] Other 11-03-2022 10:30-0400 Systolic blood pressure 116 mm[Hg] Renetta Patmargaret Other [employer] Other 09-10-2022 08:12-0400 Blood Pressure Location Linda Solorio [facility] 09-10-2022 08:12-0400 Body temperature 96.8 [degF] Linda Osmin [facility] 09-10-2022 08:12-0400 Diastolic blood pressure 71 mm[Hg] Linda Osmin [facility] 09-10-2022 08:12-0400 Heart rate 56 /min Linda Osmin [facility] 09-10-2022 08:12-0400 Systolic blood pressure 118 mm[Hg] Linda Osmin [facility] 06-11-2022 09:10-0400 Diastolic blood pressure 70 mm[Hg] Linda Osmin [facility] 06-11-2022 09:10-0400 Mean blood pressure 92 mm[Hg] Linda Osmin [facility] 06-11-2022 09:10-0400 Systolic blood pressure 136 mm[Hg] Linda Osmin [facility] 06-11-2022 09:04-0400 Blood Pressure Location Linda Osmin [facility] 06-11-2022 09:04-0400 Body temperature 97.88 [degF] Linda Osmin [facility] 06-11-2022 09:04-0400 Diastolic blood pressure 75 mm[Hg] Linda Osmin [facility] 06-11-2022 09:04-0400 Heart rate 66 /min Linda Osmin [facility] 03-29-2023 09:04-0400 Systolic blood pressure 155 mm[Hg] Linda Solorio [facility] 05-05-2022 09:45-0500 Body height 165.1 cm Miguel Membreno Other [employer] Other 05-05-2022 09:45-0500 Body mass index (BMI) [Ratio] 33.28 kg/m2 Miguel Membreno Other [employer] Other 05-05-2022 09:45-0500 Body temperature 96.2 [degF] Miguel Membreno Other [employer] Other 05-05-2022 09:45-0500 Body weight 90.72 kg Miguel Membreno Other [employer] Other 05-05-2022 09:45-0500 Diastolic blood pressure 60 mm[Hg] Miguel Membreno Other [employer] Other 05-05-2022 09:45-0500 SaO2% (BldA) [Mass fraction] 97 % Miguel Membreno Other [employer] Other 05-05-2022 09:45-0500 Systolic blood pressure 112 mm[Hg] Miguel Membreno Other [employer] Other 04-07-2022 20:00-0500 Diastolic blood pressure 80 mm[Hg] DO Christopher Kaple Work Phone: [facility] 04-07-2022 20:00-0500 Heart rate 70 /min DO Christopher Kaple Work Phone: [facility] 04-07-2022 20:00-0500 Respiratory rate 18 /min DO Christopher Kaple Work Phone: [facility] 04-07-2022 20:00-0500 SaO2% (BldA) [Mass fraction] 98 % DO Christopher Kaple Work Phone: [facility] 04-07-2022 20:00-0500 Systolic blood pressure 159 mm[Hg] DO Christopher Kaple Work Phone: [facility] 04-07-2022 17:05-0500 Body temperature 98.1 [degF] DO Christopher Kaple Work Phone: [facility] 04-07-2022 16:20-0500 Inhaled oxygen flow rate 2 L/min DO Christopher Kaple Work Phone: [facility] 04-07-2022 13:53-0500 Body height 165.1 cm DO Christopher Kaple Work Phone: [facility] 04-07-2022 13:53-0500 Body weight 90.71 kg DO Christopher Kaple Work Phone: [facility] 03-31-2022 10:15-0500 Body height 165.1 cm Renetta Barahona Other [employer] Other 03-31-2022 10:15-0500 Body mass index (BMI) [Ratio] 33.28 kg/m2 Renetta Barahona Other [employer] Other 03-31-2022 10:15-0500 Body temperature 98.7 [degF] Renetta Barahona Other [employer] Other 03-31-2022 10:15-0500 Body weight 90.72 kg Renetta Barahona Other [employer] Other 03-31-2022 10:15-0500 Diastolic blood pressure 82 mm[Hg] Renetta Barahona Other [employer] Other 03-31-2022 10:15-0500 SaO2% (BldA) [Mass fraction] 98 % Renetta Barahona Other [employer] Other 03-31-2022 10:15-0500 Systolic blood pressure 136 mm[Hg] Renetta Barahona Other [employer] Other 01-27-2022 12:00-0500 Body height 165.1 cm Miguel Martinezremelissa Other [employer] Other 01-27-2022 12:00-0500 Body mass index (BMI) [Ratio] 33.28 kg/m2 Miguel Martinezrer Other [employer] Other 01-27-2022 12:00-0500 Body temperature 97.7 [degF] Miguel Maierehrer Other [employer] Other 01-27-2022 12:00-0500 Body weight 90.72 kg Miguel Martinezrer Other [employer] Other 01-27-2022 12:00-0500 Diastolic blood pressure 70 mm[Hg] Miguel Maierehrer Other [employer] Other 01-27-2022 12:00-0500 SaO2% (BldA) [Mass fraction] 98 % Miguel Martinezrer Other [employer] Other 01-27-2022 12:00-0500 Systolic blood pressure 142 mm[Hg] Miguel Buehrer Other [employer] Other 01-15-2022 10:29-0400 Body height 165.1 cm Christopher Wells Work Phone: [facility] 600 DO Work Phone: 01-15-2022 10:29-0400 Body mass index (BMI) [Ratio] 34.95 kg/m2 Christopher Bale Work Phone: [facility] 600 DO Work Phone: 01-15-2022 10:29-0400 Body surface area Derived from formula 2.02 m2 Christopher Wells Work Phone: [facility] 600 DO Work Phone: 01-15-2022 10:29-0400 Body weight 95.26 kg Christopher Bale Work Phone: [facility] 600 DO Work Phone: 01-15-2022 10:29-0400 Diastolic blood pressure 60 mm[Hg] Christopher Wells Work Phone: [facility] 600 DO Work Phone: 01-15-2022 10:29-0400 Heart rate 68 /min Christopher Wells Work Phone: [facility] 600 DO Work Phone: 01-15-2022 10:29-0400 Systolic blood pressure 116 mm[Hg] Christopher Wells Work Phone: [facility] 600 DO Work Phone: 11-28-2021 15:19-0400 Blood Pressure Location Charis Daniel [facility] 11-28-2021 15:19-0400 Diastolic blood pressure 69 mm[Hg] Charis Daniel [facility] 11-28-2021 15:19-0400 Heart rate 61 /min Charis Daniel [facility] 11-28-2021 15:19-0400 Respiratory rate 18 /min Charis Fredy [facility] 11-28-2021 15:19-0400 SaO2% (BldA) [Mass fraction] 98 % Charis Larsonan [facility] 11-28-2021 15:19-0400 Systolic blood pressure 132 mm[Hg] Charis Daniel [facility] 10-28-2021 09:56-0400 Blood Pressure Location Charis Daniel [facility] 10-28-2021 09:56-0400 Diastolic blood pressure 72 mm[Hg] Charis Daniel [facility] 10-28-2021 09:56-0400 Heart rate 76 /min Charis Daniel [facility] 10-28-2021 09:56-0400 SaO2% (BldA) [Mass fraction] 96 % Charis Larsonan [facility] 10-28-2021 09:56-0400 Systolic blood pressure 120 mm[Hg] Charis Daniel [facility] 05-28-2021 12:25-0400 Diastolic blood pressure 64 mm[Hg] [facility] Work Phone: 05-28-2021 12:25-0400 Systolic blood pressure 130 mm[Hg] Christopher Wells [facility]: [facility] Work Phone: 05-28-2021 12:21-0400 Body height 165.1 cm [facility] Work Phone: 05-28-2021 12:21-0400 Body mass index (BMI) [Ratio] 33.98 kg/m2 Christopher Wells Work Phone: [facility] DO Work Phone: 05-28-2021 12:21-0400 Body surface area Derived from formula 2 m2 Christopher Wells Work Phone: [facility] 600 DO Work Phone: 05-28-2021 12:21-0400 Body weight 92.63 kg Christopher Wells Work Phone: [facility] 600 DO Work Phone: 05-28-2021 12:21-0400 Diastolic blood pressure 76 mm[Hg] [facility] Work Phone: 05-28-2021 12:21-0400 Heart rate 68 /min Christopher Wells Work Phone: [facility] 600 DO Work Phone: 05-28-2021 12:21-0400 Systolic blood pressure 140 mm[Hg] [facility] Work Phone: 05-08-2021 11:36-0500 Diastolic blood pressure 90 mm[Hg] Christopher Wells Work Phone: [facility] 250 DO Work Phone: 05-08-2021 11:36-0500 Systolic blood pressure 180 mm[Hg] Christopher Wells Work Phone: [facility] 250 DO Work Phone: 05-08-2021 11:20-0500 Body height 165.1 cm Christopher Wells Work Phone: [facility] 250 DO Work Phone: 05-08-2021 11:20-0500 Body mass index (BMI) [Ratio] 34.11 kg/m2 Christopher Wells Work Phone: [facility] 250 DO Work Phone: 05-08-2021 11:20-0500 Body surface area Derived from formula 2 m2 Christopher Wells Work Phone: [facility] 250 DO Work Phone: 05-08-2021 11:20-0500 Body weight 92.99 kg Christopher Wells Work Phone: [facility] 250 DO Work Phone: 05-08-2021 11:20-0500 Diastolic blood pressure 90 mm[Hg] Christopher Wells Work Phone: [facility] 250 DO Work Phone: 05-08-2021 11:20-0500 Heart rate 68 /min Christopher Wells Work Phone: [facility] 250 DO Work Phone: 05-08-2021 11:20-0500 Systolic blood pressure 142 mm[Hg] Christopher Wells Work Phone: [facility] 250 DO Work Phone: Encounters Encounter Date Encounter Type Care Provider Facility Start: 06-09-2023 End: 06-09-2023 ambulatory [facility] Work Phone: Start: 06-09-2023 End: 06-09-2023 Patient encounter procedure [facility] Work Phone: Start: 05-11-2023 End: 05-12-2023 ambulatory Christopher WELLS Facility:[facility] Start: 04-10-2023 End: 04-10-2023 Emergency department patient visit Malvin Gupta Facility:[facility] Start: 04-10-2023 End: 04-10-2023 Emergency department patient visit [facility] Chris Gupta [facility] Start: 03-23-2023 End: 03-24-2023 ambulatory Mara Pastor Facility:[facility] Start: 03-20-2023 End: 03-21-2023 ambulatory Christopher WELLS Facility:[facility] Start: 03-20-2023 End: 03-20-2023 Patient encounter procedure Christopher WELLS [facility] Start: 03-18-2023 End: 03-18-2023 ambulatory DENTON D DOLCE Not Available Start: 03-04-2023 End: 03-05-2023 ambulatory Nicola Tapia Facility:[facility] Start: 03-04-2023 End: 03-04-2023 Pain Management Nicola Tapia [facility] Start: 03-03-2023 End: 03-03-2023 Patient encounter procedure Denton Mares [facility] Start: 03-03-2023 End: 03-04-2023 ambulatory Denton D Dolce [facility] [employer] Other Start: 03-03-2023 Office outpatient vi sit 25 minutes Miguel Membreno [facility] V[facility] Surgery Start: 03-02-2023 End: 03-03-2023 ambulatory Linda Solorio Facility:[facility] Start: 03-02-2023 End: 03-02-2023 Patient encounter procedure Linda Solorio [facility] Start: 02-24-2023 End: 02-25-2023 ambulatory Denton D Dolce Facility:[facility] Start: 02-20-2023 End: 02-20-2023 ambulatory DENTON D DOLCE Not Available Start: 02-19-2023 End: 04-10-2023 ambulatory Christopher WELLS Facility:[id number] Start: 02-18-2023 End: 02-18-2023 ambulatory Miguel Darrionsatnammelissa Facility:[facility] Start: 02-18-2023 End: 02-18-2023 Admission to same day surgery center DO Christopher Wells Work Phone: [facility] Work Phone: Start: 02-18-2023 End: 02-18-2023 ambulatory DO Christopher Wells Work Phone: [facility] Work Phone: Start: 02-16-2023 End: 02-17-2023 ambulatory MD Gary Cerda Facility:[facility] Start: 02-16-2023 End: 02-16-2023 Pain Management Gary Cerda [facility] Start: 02-16-2023 End: 02-17-2023 ambulatory Denton Mares Facility:[facility] Start: 02-16-2023 End: 02-16-2023 Patient encounter procedure Denton Mares [facility] Start: 02-12-2023 End: 02-12-2023 ambulatory FRIED M [facility] Ambulatory Start: 02-12-2023 End: 02-12-2023 Office outpatient visit 25 minutes Fariha Guidry MD Work Phone: [facility] Comment on above: Atherosclerosis of n ative coronary artery of enterprise heart without angina pectoris; Status post coronary angioplasty; Essential hypertension; Hyperlipidemia, unspecified hyperlipidemia type; PVD (peripheral vascular disease) ([facility]); Stage 3 chronic kidney disease, unspecified whether stage 3a or 3b CKD ([facility]); Sleep apnea, unspecified type Start: 02-10-2023 End: 02-11-2023 ambulatory Denton Mares Facility:[facility] Start: 02-10-2023 End: 02-10-2023 Patient encounter procedure Denton Mares [facility] Start: 01-27-2023 End: 01-28-2023 ambulatory Denton Gomez Suzan [employer] Other Start: 01-27-2023 Telephone encounter Miguel Membreno [facility] V[facility] Start: 01-27-2023 End: 01-27-2023 Patient encounter procedure Denton Mares [facility] Start: 01-26-2023 End: 01-27-2023 ambulatory Christopher WELLS Facility:[facility] Start: 01-26-2023 End: 01-26-2023 Patient encounter procedure Christopher WELLS [facility] Start: 01-26-2023 End: 01-26-2023 Well adult monitoring check done Christopher WELLS [facility] Start: 01-19-2023 End: 01-20-2023 ambulatory Denton Mares Facility:[facility] Start: 01-19-2023 End: 01-19-2023 Patient encounter procedure Denton Mares [facility] Start: 01-13-2023 End: 01-14-2023 ambulatory Denton Augreg Facility:[facility] Start: 01-13-2023 End: 01-13-2023 Patient encounter procedure Denton Jason Mares [facility] Start: 01-06-2023 End: 01-07-2023 ambulatory MD Gary Cerda Facility:[facility] Start: 01-06-2023 End: 01-06-2023 Pain Management Gary Cerda [facility] Start: 01-05-2023 End: 01-05-2023 ambulatory Miguel Membreno Other [employer] Other Start: 01-05-2023 Office outpatient vi sit 25 minutes Miguel Membreno [facility] V[facility] Start: 12-31-2022 End: 01-01-2023 ambulatory Catrachito Wolf Facility:[facility] Start: 12-31-2022 End: 12-31-2022 Patient encounter procedure Catrachito Wolf [facility] Start: 12-22-2022 End: 12-23-2022 ambulatory Denton Mares Facility:[facility] Start: 12-18-2022 End: 12-19-2022 ambulatory Christopher A RUSSELL Facility:[facility] Start: 12-08-2022 End: 12-09-2022 ambulatory Catrachito Wolf Facility:[facility] Start: 12-08-2022 End: 12-08-2022 Patient encounter procedure Catrachito Wolf [facility] Start: 11-24-2022 End: 11-25-2022 ambulatory Christopher A RUSSELL Facility:[facility] Start: 11-24-2022 End: 11-24-2022 Patient encounter procedure Christopher A KAPLE [facility] Start: 11-06-2022 End: 11-07-2022 ambulatory Christopher A KAPJANNA Facility:[facility] Start: 11-04-2022 Office outpatient vi sit 25 minutes Miguel Membreno [facility] V[facility] Surgery Start: 11-04-2022 End: 11-04-2022 ambulatory DO Christopher A Kaple Work Phone: [employer] Other Start: 11-04-2022 End: 11-04-2022 Patient encounter procedure DO Christopher Kaple Work Phone: [facility] Start: 11-03-2022 Follow-up encounter Renetta Musa [facility] Surgery Start: 11-03-2022 End: 11-03-2022 [facility] [employer] Other Start: 11-03-2022 End: 11-03-2022 Patient encounter procedure DO Christopher Wells Work Phone: [facility] Start: 10-31-2022 End: 11-01-2022 ambulatory Klaus Akkina Facility:[facility] Start: 10-31-2022 End: 10-31-2022 Patient encounter procedure Klaus Akkina [facility] Start: 09-18-2022 Chart Update Christopher Wells Work Phone: [facility] 250 DO Work Phone: Start: 09-17-[address] Christopher Moulton ity:[id number] Start: 09-10-2022 End: 09-11-2022 ambulatory Linda Solorio Facility:[facility] Start: 09-10-2022 End: 09-10-2022 Patient encounter procedure Linda Solorio [facility] Start: 08-01-2022 End: 08-02-2022 ambulatory Fariha Cumminsahim Facility:[facility] Start: 07-23-2022 Rx Renewal Christopher Wells Work Phone: [facility] 250 DO Work Phone: Start: 06-13-2022 Rx Renewal Christopher Wells Work Phone: [facility] DO Work Phone: Start: 06-11-2022 End: 06-11-2022 Patient encounter procedure Linda Solorio [facility] Start: 05-08-2022 End: 05-08-2022 Lab Drop off Linda Solorio [facility] Start: 05-05-2022 End: 05-05-2022 ambulatory Miguel Membreno Other [facility] [employer] Other Start: 05-05-2022 Office outpatient vi sit 25 minutes Miguel Membreno [facility] V[facility] Start: 04-08-2022 End: 04-08-2022 ambulatory Renetta Patjulesmelissa Other [facility] [employer] Other Start: 04-08-2022 Telephone encounter Renetta [facility] Start: 04-07-2022 End: 04-07-2022 ambulatory Miguelerrlo Martinezbettymelissa Facility:[facility] Start: 04-07-2022 End: 04-07-2022 Admission to same day surgery center DO Christopher Wells Work Phone: [facility]-Inter[facility] Work Phone: Start: 04-07-2022 End: 04-07-2022 ambulatory DO Christopher A Kaple Work Phone: [facility] Work Phone: Start: 03-31-2022 Follow-up encounter Renetta [facility] Start: 03-31-2022 End: 03-31-2022 ambulatory Miguel Michellekym Facility:[facility] Start: 03-31-2022 End: 03-31-2022 ambulatory DO Christopher A Kaple Work Phone: [facility] Work Phone: Start: 03-31-2022 End: 03-31-2022 Patient encounter procedure DO Christopher Kaple Work Phone: [facility] Start: 03-31-2022 End: 03-31-2022 Patient encounter procedure Klaus Núñez [facility] Start: 02-12-2022 End: 02-12-2022 Patient encounter procedure Christopher WELLS [facility] Start: 01-27-2022 End: 01-27-2022 ambulatory Miguel Membreno Other [facility] [employer] Other Start: 01-27-2022 Office outpatient ne w 45 minutes Miguel Membreno [facility] V[facility] Surgery Start: 01-15-[address] Fariha Guidry Facility: Start: 01-15-2022 Office outpatient vi sit 25 minutes Christopher Wells Work Phone: [facility] 600 DO Work Phone: Start: 12-31-2021 End: 06-01-2022 Recurring Charis Daniel [facility] Start: 11-28-2021 End: 11-28-2021 Patient encounter procedure Charis Daniel [facility] Start: 11-12-2021 Rx Renewal [facility] Work Phone: Start: 10-28-2021 Rx Renewal [facility] Work Phone: Start: 10-28-2021 End: 10-28-2021 Patient encounter procedure Charis Daniel [facility] Start: 10-01-2021 End: 10-01-2021 Patient encounter procedure Christopher WELLS [facility] Start: 09-24-2021 End: 09-24-2021 Patient encounter procedure Christopher Moni WELLS [facility] Start: 08-08-2021 End: 08-08-2021 Patient encounter procedure Christopher Moni MEJIAJANNA [facility] Start: 07-30-2021 Rx Renewal Christopher Moni Mejiajanna Work Phone: [facility] 250 DO Work Phone: Start: 06-12-2021 End: 01-13-2022 Recurring Christopher Moni RUSSELL [facility] Start: 05-28-2021 Office outpatient vi sit 10 minutes Christopher Wells Work Phone: [facility] 600 DO Work Phone: Start: 05-28-2021 ambulatory Christopher Moni Russell Facility: Start: 05-12-2021 Chart Update Christopher Moni Wells Work Phone: [facility] 250 DO Work Phone: Start: 05-08-2021 ambulatory Christopher Wells Facility: Procedures Date Procedure Procedure Detail Performing Clinician Start: 03-04-2023 Fluoroscopy guided i njection of hip joint Malvin Gupta Comment on above: 99% relief Start: 02-18-2023 Lower limb angiography DO Christopher Russell Work Phone: Start: 11-04-2022 Duplex scan of lower limb arteries DO Christopher Russell Work Phone: Start: 11-03-2022 Ankle brachial press ure index DO Christopher Russell Work Phone: Start: 05-21-2022 Colonoscopy Fariha zavala MD Work Phone: Start: 05-21-2022 Colonoscopy Charis power Comment on above: biopsies of ascendin g colon, one polyp Start: 04-07-2022 IR Angiogram w/TLA/S tent Left Leg (Left) DO Christopher Wells Work Phone: Start: 03-31-2022 Ankle brachial press ure index DO Christopher Wells Work Phone: Start: 04-15-2017 Colonoscopy Christopher MEJIAGet E Angioplasty of blood vessel Christopher Moni Bajanna Work Phone: Cardiac Stents x 3 Christopher BA LE Cholecystectomy Christopher Moni Baget e Work Phone: Cholecystectomy Christopher WELLS Colonoscopy Christopher Moni Wells Work Phone: Hysterectomy Christopher Moni Bajanna Work Phone: Hysterectomy Christopher WELLS Insertion of stent i n femoral vein Christopher Bajanna Work Phone: Plan of Treatment Date Care Activity Detail Author Start: 05-21-2032 Screening for malignant neoplasm of colon [facility] Start: 05-09-2025 DTaP/Tdap/Td Vaccines (2 - Td or Tdap) DTaP/Tdap/Td Vaccines (2 - Td or Tdap) [facility] Start: 02-01-2024 ambulatory Ambulatory Facility:[facility] Start: 07-28-2023 ambulatory Ambulatory Facility:[facility] Start: 02-18-2023 US Lower extremity veins - bilateral [facility] Start: 02-18-2023 US scan venography of lower limbs US venous mapping BI lower [facility] Start: 02-18-2023 [facility] Start: 02-12-2023 End: 02-13-2024 Alanine aminotransferase [Enzymatic activity/volume] in Serum or Plasma by With P-5'-P Alanine Aminotransferase Lab Routine Atherosclerosis of enterprise coronary artery of enterprise heart without angina pectoris Hyperlipidemia, unspecified hyperlipidemia type Expected: 02/12/2023 (Approximate), Expires: 02/13/2024 [facility] Service Area Work Phone: Comment on above: Expected: 02/12/2023 (Approximate), Expi res: 02/13/2024 Start: 02-12-2023 End: 02-13-2024 Aspartate aminotransferase [Enzymatic activity/volume] in Serum or Plasma by With P-5'-P Aspartate Aminotransferase Lab Routine Atherosclerosis of enterprise coronary artery of enterprise heart without angina pectoris Hyperlipidemia, unspecified hyperlipidemia type Expected: 02/12/2023 (Approximate), Expires: 02/13/2024 [facility] Work Phone: Comment on above: Expected: 02/12/2023 (Approximate), Expi res: 02/13/2024 Start: 02-12-2023 End: 02-13-2024 Lipid 1996 panel - Serum or Plasma Lipid Panel Lab Routine Atherosclerosis of enterprise coronary artery of enterprise heart without angina pectoris Hyperlipidemia, unspecified hyperlipidemia type Expected: 02/12/2023 (Approximate), Expires: 02/13/2024 [facility] Work Phone: Comment on above: Expected: 02/12/2023 (Approximate), Expi res: 02/13/2024 Start: 02-12-2023 FUV, Provider: Fariha Guidry, Status: Pen, Time: 9:00 AM FUV, Provider: Fariha Guidry, Status: Pen, Time: 9:00 AM [facility] 250 DO Work Phone: Start: 11-14-2022 Influenza vaccination Influenza Vaccine (#1) [facility] Start: 07-30-2022 FUV, Provider: Fariha Guidry, Status: Pen, Time: 8:40 AM FUV, Provider: Fariha Guidry, Status: Pen, Time: 8:[address] [facility] Work Phone: Start: 04-07-2022 [facility] Start: 02-12-2022 COVID-19 Vaccine (4 - Booster for Luca series) COVID-19 Vaccine (4 - Booster for Luca series) [facility] Start: 01-15-2022 FUV, Provider: Fariha Guidry, Status: Pen, Time: 10:10 AM FUV, Provider: Fariha Guidry, Status: Pen, Time: 10:[address] [facility] Work Phone: Start: 05-28-2021 NURSEVST, Provider: CITLALLI RASHID ASSISTANT PROFESSOR OF PSYCHOLOGY 1,[id number], Status: Pen, Time: 11:45 AM NURSEVST, Provider: CITLALLI RASHID ASSISTANT PROFESSOR OF PSYCHOLOGY 1,[id number], Status: Pen, Time: 11:45 AM [facility] 250 DO Work Phone: Start: 1989 Screening for malignant neoplasm of breast Mammogram [facility] Start: 06-25-1967 Diabetes mellitus screening Diabetes Screening [facility] Start: 06-25-1967 Hepatitis C screening Hepatitis C Screening [facility] Start: 1949 Lipid panel Lipid Panel [facility] Start: 1949 Medicare Annual Wellness Visit Medicare Annual Wellness Visit (AWV) [facility] Start: 1949 Screening for malignant neoplasm of colon [facility] Start: 1949 Screening for osteoporosis Bone Density Scan [facility] Ankle brachial press ure index [facility] Patient Education [facility] Work Phone: Patient referral [facility] Work Phone: Immunizations Immunization Date Immunization Notes Care Provider Fa cility 12-18-2021 Fluad Quadrivalent 0 .5 ML Intramuscular Prefilled Syringe Christopher Wells Work Phone: [facility] 600 DO Work Phone: 12-18-2021 influenza virus vaccine, unspecified formulation Christopher WELLS [facility] 12-18-2021 Pfizer COVID-19 Vac Bivalent 30 MCG/0.3ML Intramuscular Suspension Christopher Wells Work Phone: [facility] 600 DO Work Phone: 12-18-2021 SARS-CoV-2 (COVID-19 ) mRNA [id number] vax Christopher WELLS [facility] 03-26-2021 Fluzone High-Dose Quadrivalent 0.7 ML Intramuscular Suspension Prefilled Syringe Christopher [facility] Work Phone: 03-26-2021 influenza virus vaccine, unspecified formulation Christopher WELLS [facility] 03-26-2021 Pfizer-BioNTech COVID-19 Vacc 30 MCG/0.3ML Intramuscular Suspension Christopher Wells Work Phone: [place] [address] DO Work Phone: 05-19-2020 Luca COVID-19 Vaccine 0.5 ML Intramuscular Suspension Christopher Wells Work Phone: [place] [address] DO Work Phone: 05-18-2020 COVID-19 vaccine, vector-nr, [id number], PF, 0.5 mL; Translations: [Luca COVID-19 Vaccine] Christopher WELLS [facility] Comment on above: Reason for Medicatio n: Prophylaxis Reason for Medicatio n: Prophylaxis 02-23-2020 zoster vaccine recombinant Christopher Wells Work Phone: [facility] 250 DO Work Phone: 01-05-2020 Fluad Quadrivalent 0 .5 ML Intramuscular Prefilled Syringe Christopher Wells Work Phone: [facility] 250 DO Work Phone: 01-05-2020 influenza virus vaccine, unspecified formulation Christopher WELLS [facility] 12-28-2019 influenza, high dose seasonal, preservative-free Christopher Wells Work Phone: [place] [address] DO Work Phone: 12-15-2019 influenza virus vaccine, unspecified formulation Christopher WELLS [facility] 11-15-2019 zoster vaccine recombinant Christopher Wells Work Phone: [place] [address] DO Work Phone: 11-15-2019 zoster vaccine, live Christopher MARTI [facility] 12-20-2018 influenza, high dose seasonal, preservative-free Christopher WELLS [facility] 12-14-2018 influenza virus vaccine, unspecified formulation Christopher RUSSELL [facility] 12-14-2018 influenza, high dose seasonal, preservative-free Christopher Wells Work Phone: [place] [address] DO Work Phone: 12-14-2018 pneumococcal polysaccharide vaccine, 23 valent Christopher Wells Work Phone: [place] [address] DO Work Phone: 02-16-2018 influenza virus vaccine, unspecified formulation Christopher WELLS [facility] 02-16-2018 Influenza, injectabl e, Madin [place] Canine Kidney, preservative free, quadrivalent Christopher Wells Work Phone: [place] [address] DO Work Phone: 02-16-2018 pneumococcal conjuga te vaccine, 13 valent Christopher Wells Work Phone: [place] [address] DO Work Phone: 11-14-2017 influenza virus vaccine, unspecified formulation Christopher Wells Work Phone: [place] [address] DO Work Phone: 11-27-2016 influenza virus vaccine, unspecified formulation Christopher WELLS [facility] 11-27-2016 influenza, high dose seasonal, preservative-free Christopher Moni Wells Work Phone: [place] [address] DO Work Phone: 01-21-2016 influenza virus vaccine, unspecified formulation Christopher RUSSELL [facility] 01-21-2016 influenza, high dose seasonal, preservative-free Christopher Wells Work Phone: [place] [address] DO Work Phone: 05-09-2015 tetanus toxoid, redu louise diphtheria toxoid, and acellular pertussis vaccine, adsorbed Christopher Wells Work Phone: [place] [address] DO Work Phone: 02-26-2009 novel [id number], preservative-free, injectable Christopher Wells Work Phone: [place] [address] DO Work Phone: NEGATED: Highlighted row has not occurred!02-27-2023 influenza virus vaccine, unspecified formulation Linda Solorio [facility] NEGATED: Highlighted row has not occurred!12-18-2022 influenza virus vaccine, unspecified formulation Catrachito Wilmerding [facility] Payers Date Payer Category Payer Self-pay [id number] 2022 Unknown [id number] 2018 Unknown 2018 Unknown [id number] 2014 Medicare [id number] 2014 Medicare MEDICARE MEDICAR E PART A AND B [id number] 2014-Present [address] [place] [address] [id number]. [id number] 1949 Unknown [id number] 2.16.840.1.377127.3.579.2.356 1949 Unknown [id number] 2.16.840.1.726004.3.579.2.356 1949 Unknown [id number] 2.16.840.1.165769.3.579.2.356 1949 Unknown [id number] 2.16.840.1.341649.3.579.2.1068 1949 Unknown [id number] 2.16.840.1.836777.3.579.2.1244 1949 Unknown [id number] 2.16.840.1.596806.3.579.2.1259 1949 Unknown [id number] 2.16.840.1.883159.3.579.2.1259 1949 Unknown [id number] 2.16.840.1.596493.3.579.2.727 1949 Unknown [id number] 2.16.840.1.144497.3.579.2.727 1949 Unknown [id number] 2.16.840.1.913535.3.579.2.727 1949 Unknown [id number] 2.16.840.1.993519.3.579.2 1949 Unknown [id number] 2.16.840.1.072978.3.579.2 1949 Unknown [id number] 2.16.840.1.661695.3.579.2 1949 Unknown [id number] 2.16.840.1.514799.3.579.2 1949 Unknown [id number] 2.16.840.1.889640.3.579.2 1949 Unknown [id number] 2.16.840.1.512670.3.579. 1949 Unknown [id number] 2.16.840.1.447282.3.579. 1949 Unknown [id number] 2.16.840.1.275483.3.579. 1949 Unknown [id number] 2.16.840.1.737676.3.579.2 1949 Unknown [id number] 2.16.840.1.178158.3.579.2 1949 Unknown [id number] 2.16.840.1.920965.3.579.2 1949 Unknown [id number] 2.16.840.1.482025.3.579.2 1949 Unknown [id number] 2.16.840.1.320450.3.579.2 1949 Unknown [id number] 2.16.840.1.806700.3.579.2 1949 Unknown [id number] 2.16.840.1.989246.3.579.2 1949 Unknown [id number] 2.16.840.1.618049.3.579.2 1949 Unknown [id number] 2.16.840.1.386923.3.579.2.727 1949 Unknown [id number] 2.16.840.1.860481.3.579.2.727 1949 Unknown [id number] 2.16.840.1.442148.3.579.2.727 1949 Unknown [id number] 2.16.840.1.727127.3.579.2.727 1949 Unknown [id number] 2.16.840.1.554521.3.579.2.727 1949 Unknown [id number] 2.16.840.1.305768.3.579.2.727 1949 Unknown [id number] 2.16.840.1.515800.3.579.2.727 1949 Unknown [id number] 2.16.840.1.826603.3.579.2.727 1949 Unknown [id number] 2.16.840.1.984202.3.579.2.727 Unknown [id number] 2.16.840.1.115949.3.579.2.531 Unknown [id number] 2.16.840.1.522938.3.579.2.531 Unknown [id number] 2.16.840.1.469517.3.579.2.531 Unknown [id number] 2.16.840.1.897152.3.579.2.531 Unknown [id number] 2.16.840.1.019741.3.579.2.531 Social History Date Type Detail Facility Start: 02-12-2023 Never a smoker Never a smoker -[facility] 250 DO Work Phone: Start: 12-10-2020 End: 03-03-2023 Tobacco smoking status Never smoked tobacco (finding) [facility] Comment on above: denies use Tobacco smoking status Never [facility] Comment on above: denies use Start: 02-12-2023 Sex Assigned At Female F [facility] Start: 1950 Sex Assigned At Female F [facility] Start: 02-12-2023 Tobacco use and exposure Smokeless tobacco non-user [facility] Work Phone: Start: 02-12-2023 Alcohol intake Current drinke r of alcohol (finding) [facility] Work Phone: Start: 02-12-2023 Alcohol Comment social [facility] Work Phone: Start: 1950 Sex Assigned At Not on file [facility] Work Phone: Start: 02-02-2023 End: 02-12-2023 Exposure to SARS-CoV-2 (event) Not sure [facility] Medical Equipment Procedure Code Equipment [...] 11, Dx: E11.9 Directions: BID, [id number], Supply, 165, cm, 06/11/22 9:10:00 EDT, Height/Length Dosing, 97.6, kg, 06/11/22 9:10:00 EDT, Weight Dosing Start: 06-13-2022 Lancets, See Instructions, 100 EA, 11, Dx: E11.9 Directions: BID, [facility], Supply, 166, cm, 05/10/21 8:27:00 EST, Height/Length Dosing, 92.8, kg, 05/10/21 8:27:00 EST, Weight Dosing Start: 05-10-2021 Test strips, See Instructions, 100 EA, 11, Dx: E11.9 Directions: BID, [facility] #[id number], Supply, 165, cm, 06/11/22 9:10:00 EDT, Height/Length Dosing, 97.6, kg, 06/11/22 9:10:00 EDT, Weight Dosing Start: 06-13-2022 CL CLOSURE DEVIC E EXOSEAL 6F FDA Start: 08-11-2018 CL STENT JIE 2.5 X 08 FDA Start: 08-11-2018 Multiple periphe ral artery stent, bare-metal ()[id number] FDA Start: 04-07-2022 Lancets, See Instructions, 100 EA, 11, Dx: E11.9 Directions: BID, [facility], Supply, 166, cm, 05/10/21 8:27:00 EST, Height/Length Dosing, 92.8, kg, 05/10/21 8:27:00 EST, Weight Dosing Start: 05-10-2021 Test strips, See Instructions, 100 EA, 11, Dx: E11.9 Directions: BID, [facility] #[id number], Supply, 165, cm, 06/11/22 9:10:00 EDT, Height/Length Dosing, 97.6, kg, 06/11/22 9:10:00 EDT, Weight Dosing Start: 06-13-2022 Lancets, See Instructions, 100 EA, 11, Dx: E11.9 Directions: BID, [facility], Supply, 166, cm, 05/10/21 8:27:00 EST, Height/Length Dosing, 92.8, kg, 05/10/21 8:27:00 EST, Weight Dosing Start: 05-10-2021 Test strips, See Instructions, 100 EA, 11, Dx: E11.9 Directions: BID, [facility] #[id number], Supply, 165, cm, 06/11/22 9:10:00 EDT, Height/Length Dosing, 97.6, kg, 06/11/22 9:10:00 EDT, Weight Dosing Start: 06-13-2022 Lancets, See Instructions, 100 EA, 11, Dx: E11.9 Directions: BID, [facility], Supply, 166, cm, 05/10/21 8:27:00 EST, Height/Length Dosing, 92.8, kg, 05/10/21 8:27:00 EST, Weight Dosing Start: 05-10-2021 Test strips, See Instructions, 100 EA, 11, Dx: E11.9 Directions: BID, [facility] #[id number], Supply, 165, cm, 06/11/22 9:10:00 EDT, Height/Length Dosing, 97.6, kg, 06/11/22 9:10:00 EDT, Weight Dosing Start: 06-13-2022 Lancets, See Instructions, 100 EA, 11, Dx: E11.9 Directions: BID, [facility], Supply, 166, cm, 05/10/21 8:27:00 EST, Height/Length Dosing, 92.8, kg, 05/10/21 8:27:00 EST, Weight Dosing Start: 05-10-2021 Test strips, See Instructions, 100 EA, 11, Dx: E11.9 Directions: BID, [facility] #[id number], Supply, 165, cm, 06/11/22 9:10:00 EDT, Height/Length Dosing, 97.6, kg, 06/11/22 9:10:00 EDT, Weight Dosing Start: 06-13-2022 Lancets, See Instructions, 100 EA, 11, Dx: E11.9 Directions: BID, [facility], Supply, 166, cm, 05/10/21 8:27:00 EST, Height/Length Dosing, 92.8, kg, 05/10/21 8:27:00 EST, Weight Dosing Start: 05-10-2021 Test strips, See Instructions, 100 EA, 11, Dx: E11.9 Directions: BID, [facility] #[id number], Supply, 165, cm, 06/11/22 9:10:00 EDT, Height/Length Dosing, 97.6, kg, 06/11/22 9:10:00 EDT, Weight Dosing Start: 06-13-2022 Lancets, See Instructions, 100 EA, 11, Dx: E11.9 Directions: BID, [facility], Supply, 166, cm, 05/10/21 8:27:00 EST, Height/Length Dosing, 92.8, kg, 05/10/21 8:27:00 EST, Weight Dosing Start: 05-10-2021 Test strips, See Instructions, 100 EA, 11, Dx: E11.9 Directions: BID, [facility] #[id number], Supply, 165, cm, 06/11/22 9:10:00 EDT, Height/Length Dosing, 97.6, kg, 06/11/22 9:10:00 EDT, Weight Dosing Start: 06-13-2022 Lancets, See Instructions, 100 EA, 11, Dx: E11.9 Directions: BID, [facility], Supply, 166, cm, 05/10/21 8:27:00 EST, Height/Length Dosing, 92.8, kg, 05/10/21 8:27:00 EST, Weight Dosing Start: 05-10-2021 Test strips, See Instructions, 100 EA, 11, Dx: E11.9 Directions: BID, [facility] #[id number], Supply, 165, cm, 06/11/22 9:10:00 EDT, Height/Length Dosing, 97.6, kg, 06/11/22 9:10:00 EDT, Weight Dosing Start: 06-13-2022 Lancets, See Instructions, 100 EA, 11, Dx: E11.9 Directions: BID, [facility], Supply, 166, cm, 05/10/21 8:27:00 EST, Height/Length Dosing, 92.8, kg, 05/10/21 8:27:00 EST, Weight Dosing Start: 05-10-2021 Test strips, See Instructions, 100 EA, 11, Dx: E11.9 Directions: BID, [facility] #[id number], Supply, 165, cm, 06/11/22 9:10:00 EDT, Height/Length Dosing, 97.6, kg, 06/11/22 9:10:00 EDT, Weight Dosing Start: 06-13-2022 Lancets, See Instructions, 100 EA, 11, Dx: E11.9 Directions: BID, [facility], Supply, 166, cm, 05/10/21 8:27:00 EST, Height/Length Dosing, 92.8, kg, 05/10/21 8:27:00 EST, Weight Dosing Start: 05-10-2021 Test strips, See Instructions, 100 EA, 11, Dx: E11.9 Directions: BID, [facility] #[id number], Supply, 165, cm, 06/11/22 9:10:00 EDT, Height/Length Dosing, 97.6, kg, 06/11/22 9:10:00 EDT, Weight Dosing Start: 06-13-2022 Lancets, See Instructions, 100 EA, 11, Dx: E11.9 Directions: BID, [facility], Supply, 166, cm, 05/10/21 8:27:00 EST, Height/Length Dosing, 92.8, kg, 05/10/21 8:27:00 EST, Weight Dosing Start: 05-10-2021 Test strips, See Instructions, 100 EA, 11, Dx: E11.9 Directions: BID, [facility] #[id number], Supply, 165, cm, 06/11/22 9:10:00 EDT, Height/Length Dosing, 97.6, kg, 06/11/22 9:10:00 EDT, Weight Dosing Start: 06-13-2022 Lancets, See Instructions, 100 EA, 11, Dx: E11.9 Directions: BID, [facility], Supply, 166, cm, 05/10/21 8:27:00 EST, Height/Length Dosing, 92.8, kg, 05/10/21 8:27:00 EST, Weight Dosing Start: 05-10-2021 Test strips, See Instructions, 100 EA, 11, Dx: E11.9 Directions: BID, [facility] #[id number], Supply, 165, cm, 06/11/22 9:10:00 EDT, Height/Length [...] 11, Dx: E11.9 Directions: BID, [facility] #[id number], Supply, 165, cm, 06/11/22 9:10:00 EDT, Height/Length Dosing, 97.6, kg, 06/11/22 9:10:00 EDT, Weight Dosing Start: 06-13-2022 Lancets, See Instructions, 100 EA, 11, Dx: E11.9 Directions: BID, [facility], Supply, 166, cm, 05/10/21 8:27:00 EST, Height/Length Dosing, 92.8, kg, 05/10/21 8:27:00 EST, Weight Dosing Start: 05-10-2021 Test strips, See Instructions, 100 EA, 11, Dx: E11.9 Directions: BID, [facility] #[id number], Supply, 165, cm, 06/11/22 9:10:00 EDT, Height/Length Dosing, 97.6, kg, 06/11/22 9:10:00 EDT, Weight Dosing Start: 06-13-2022 Lancets, See Instructions, 100 EA, 11, Dx: E11.9 Directions: BID, [facility], Supply, 166, cm, 05/10/21 8:27:00 EST, Height/Length Dosing, 92.8, kg, 05/10/21 8:27:00 EST, Weight Dosing Start: 05-10-2021 Test strips, See Instructions, 100 EA, 11, Dx: E11.9 Directions: BID, [facility] #[id number], Supply, 165, cm, 06/11/22 9:10:00 EDT, Height/Length Dosing, 97.6, kg, 06/11/22 9:10:00 EDT, Weight Dosing Start: 06-13-2022 Lancets, See Instructions, 100 EA, 11, Dx: E11.9 Directions: BID, [facility], Supply, 166, cm, 05/10/21 8:27:00 EST, Height/Length Dosing, 92.8, kg, 05/10/21 8:27:00 EST, Weight Dosing Start: 05-10-2021 Test strips, See Instructions, 100 EA, 11, Dx: E11.9 Directions: BID, [facility] #[id number], Supply, 165, cm, 06/11/22 9:10:00 EDT, Height/Length Dosing, 97.6, kg, 06/11/22 9:10:00 EDT, Weight Dosing Start: 06-13-2022 Lancets, See Instructions, 100 EA, 11, Dx: E11.9 Directions: BID, [facility], Supply, 166, cm, 05/10/21 8:27:00 EST, Height/Length Dosing, 92.8, kg, 05/10/21 8:27:00 EST, Weight Dosing Start: 05-10-2021 Test strips, See Instructions, 100 EA, 11, Dx: E11.9 Directions: BID, [facility] #[id number], Supply, 165, cm, 06/11/22 9:10:00 EDT, Height/Length Dosing, 97.6, kg, 06/11/22 9:10:00 EDT, Weight Dosing Start: 06-13-2022 CL CLOSURE DEVIC E EXOSEAL 6F FDA Start: 08-11-2018 CL STENT JIE 2.5 X 08 FDA Start: 08-11-2018 Functional Status Date Assessment Result Facility 04-10-2023 Functional Status N/A [facility] 03-20-2023 Functional Status N/A [facility] 03-04-2023 Functional Status N/A [facility] 02-16-2023 Functional Status N/A [facility] 01-26-2023 Functional Status N/A [facility] 01-06-2023 Functional Status N/A [facility] 09-10-2022 Functional Status N/A [facility] 06-11-2022 Functional Status N/A [facility] 04-07-2022 Functional status Patient at Baseline [facility] Work Phone: 11-28-2021 N/A [facility] 10-28-2021 No [facility] Mental Status Date Assessment Result Facility 04-07-2022 Cognitive function Cognitive Sta tus Patient at Baseline [facility] Work Phone: Clinical Notes 01-27-2022 to 04-10-2023 Note Date & Type Note Facility 04-10-2023 Evaluation + Plan note Extrac beatriz from: Title:ED Note Author:Erick BARTH, Radhames Crystal te:04/10/23 Bronchitis (J40: Bronchitis, not specified as acute or chronic) Orders: albuterol, 2 puff(s), Inhalation, q6hr Wheezing, 8.5 gm, Refill(s) 0, [facility] #[id number], 165, cm, 04/10/23 9:26:00 EST, Height/Length Dosing, 96.9, kg, 04/10/23 9:26:00 EST, Weight Dosing azithromycin, = 1 packet(s), Oral, As Directed, as directed on package labeling, X 5 day(s), # 6 tab(s), Refills(s) 0, Pharmacy: [facility] #[id number], 165, cm, 04/10/23 9:26:00 EST, Height/Length Dosing, 96.9, kg, 04/10/23 9:26:00 EST, Weight Dosing predniSONE, 60 mg = 3 tab(s), Oral, Daily, X 7 day(s), # 21 tab(s), Refills(s) 0, Pharmacy: [facility] #[id number], 165, cm, 04/10/23 9:26:00 EST, Height/Length Dosing, 96.9, kg, 04/10/23 9:26:00 EST, Weight Dosing XR Chest 2 Views Future Appointments Appointment Date:07/28/2023 08:00:00 AM Scheduled Provider:Christopher WELLS DO, FAAFP Location:[facility] Appointment Type: Open Appointment Date:02/01/2024 08:00:00 AM Scheduled Provider: Location:[facility] Appointment Type:FM Medicare Wellness Subsequent Future Scheduled Tests Laboratory* HgbA1c 03/27/22 * HgbA1c 06/25/22 * HCV Antibody RFX to Quant PCR 01/26/23 [facility]01-26-2024 Hospital Discharge instructions Patient Education 04/10/2023 [...] condition. Follow these instructions at home: Take sugy-jyv-hctirfk and prescription medicines only as told by [...] and water are not available, use hand farm planner. Avoid contact with people who have cold [...] it is easier to cough up. Take ufpa-lym-yxwlflx and prescription medicines only as told by [...] provider. Document Revised: 06/12/2022 Document Reviewed: 07/03/2021 Elsevier Patient Education 2022 [employer] Follow Up Care 04/10/2023 09:14:32 With:Christopher WELLS Address: [address], [place] [address]- Business (1) When:04/13/2023 11:17:35 [facility]01-05-2024 Hospital Discharge instructions Patient Education 03/20/2023 [...] plan? Your health care provider or certified athletic trainer can help you make a plan for [...] (heat stroke). Where to find more information [place] [employer]: www.diabetes.org Summary Exercising regularly is important for overall health, especially for people who have diabetes mellitus. Exercising has many health benefits. It increases muscle strength and bone density and reduces bodyfat and stress. It also lowers and controls blood glucose. Your health care provider or certified athletic trainer can help you make an activity plan [...] provider. Document Revised: 11/28/2019 Document Reviewed: 11/28/2019 Mainstream [employer] Patient Education 2022 [employer] Follow Up Care 12/18/2022 08:59:12 With:Christopher WELLS DO, FAAFP, FAM, PED Address: [address] [place] [address] [place] [address]- When:Within 4 Month(s) [facility] 12-20-2023 Evaluation + [...] 09:00:00 AM Scheduled Provider:Christopher WELLS DO, FAAFP Location:[facility] Appointment Type: Open Appointment Date:03/23/2023 08:30:00 AM Scheduled Provider:Mara Pastor PA-C Location:[facility] Appointment Type:Pain Management - Follow Up (FT) Appointment Date:02/01/2024 08:00:00 AM Scheduled Provider: Location:[facility] Appointment Type:FM Medicare Wellness Subsequent Future Scheduled Tests Laboratory* HgbA1c 03/27/22 * HgbA1c 06/25/22 * HCV Antibody RFX to Quant PCR 01/26/23 [facility]12-20-2023 Note [id number] NoteDiagnosis: M16.12, left hip pain/osteoarthritis Procedure: [...] procedure, and agrees to continue currently prescribed/recommended therapies.[facility] Comment on above:Result Comment: Electronically Signed By: Nicola Tapia DO.br\Date and Time Signed: 03/04/23 09:06 [id number] Evaluation note* Encounter Date Diagnosis Assessment Notes [...] sooner should she deteriorate in any way [employer] Other [id number] History of Present illness Narrative* Fariha Guidry [...] I suggested that she discuss with her shoulder boner the addition of APVS3bvelfjhwq or GLP agonists. Reviewed with the patient [...] complications. 5. Diabetes, managed by endocrinology in [place]. A1c remains above target, advised patient to discuss with the shoulder boner more aggressive therapy. 6. Hypertension completely under control. 7. High-risk medication with Xarelto, so far well-tolerated. Takes baby aspirin twice weekly 8. Stage III chronic kidney disease to be monitored closely, she follow with nephrology 9. intermittent claudications and PAD followed by vascular surgery in [place]. Patient is scheduled next week to have revascularization for intermittent claudication 10. Sleep apnea not consistently using CPAP machine. Encouraged the patient to utilize it daily. Fariha Guidry MD, [facility] Review of Systems All other systems reviewed [...] tablet, Rfl: 3 Assessment/Plan 1. Atherosclerosis of enterprise coronary artery of enterprise heart without angina pectoris Follow Up In Cardiology atorvastatin (Lipitor) 40 mg tablet Alanine Aminotransferase Aspartate Aminotransferase Lipid Panel 2. Status post coronary angioplasty Follow Up In Cardiology 3. Essential hypertension Follow Up In Cardiology 4. Hyperlipidemia, unspecified hyperlipidemia type atorvastatin (Lipitor) 40 mg tablet Alanine Aminotransferase Aspartate Aminotransferase Lipid Panel 5. PVD (peripheral vascular disease) ([facility]) 6. Stage 3 chronic kidney disease, unspecified whether stage 3a or 3b CKD ([facility]) 7. Sleep apnea, unspecified [facility]: [phone]) 450-800811-30-2023 Instructions* Patient Instructions* Saloni Benavides LPN - [...] Follow up 6 [facility] Phone: [phone]) 366-576511-13-2023 Hospital Discharge instructions Patient Education 01/26/2023 09:01:27 [...] Carrots. Green beans. Tomatoes. Peppers. Onions. Cucumbers. [place]wall sprouts. Grains Whole grains, such as whole-wheat [...] meet with a certified diabetes care and distance education faculty liaison? Do I need to meet with a dietitian? What number can I call if I have questions? When are the best times to check my blood glucose? Where to find more information: [place] [employer]: diabetes.org Academy of Nutrition and Dietetics: eatright.org National [place] of Diabetes and Digestive and Kidney Diseases: [...] provider. Document Revised: 10/03/2020 Document Reviewed: 10/03/2020 Elsevier Patient Education 2023 [employer] 01/26/2023 09:01:11 Fall Prevention in the Home, Adult, Gzid-lo-Lvqb Fall Prevention in the Home, Adult Falls [...] Keep items that you use often in eyuk-qz-iclte places. Lower the shelves around your home [...] of the way. Do not use floor latvian or wax that makes floors slippery. What [...] for Disease Control and PreventionKELLEY: www.cdc.gov National [place] on Aging: www.[place].nih.gov Contact a doctor if: [...] provider. Document Revised: 12/02/2021 Document Reviewed: 10/03/2020 Main[employer] Patient Education 2022 [employer] 01/26/2023 09:01:04 Hepatitis C, Ycps-so-Ixzo Hepatitis C Hepatitis C is a liver [...] organ donations that were done in the [place] before 1991. What increases the risk? [...] Follow these instructions at home: Medicines Take bnoi-zmz-zqjdwsq and prescription medicines only as told by your doctor. If you were given an antiviral medicine, take it as told by your doctor. Do not stop using the antiviral even if you start to feel better. Do not take any new medicines unless your doctor says that this is okay. This includes ylbf-cgw-zjdzphj medicines and supplements. Activity Rest as needed. [...] not have soap and water, use hand farm planner. Cover any cuts or open sores on [...] provider. Document Revised: 01/17/2021 Document Reviewed: 01/17/2021 [employer] Patient Education 2022 [employer] 01/26/2023 09:00:41 Exercising to Lose Weight Exercising [...] your health care provider or diet and loan specialist (dietitian). This may include: ?Eating fewer [...] provider. Document Revised: 04/28/2021 Document Reviewed: 04/28/2021 [employer] Patient Education 2022 [employer] 01/26/2023 09:00:38 Cooking With Less Salt Cooking [...] salt. Use sodium-free baking soda when baking. [place], braise, or roast foods to add flavor with less salt. Avoid adding salt to pasta, rice, or hot cereals. Drain and rinse canned vegetables, beans, and meat before use. Avoid adding salt when cooking sweets and desserts. Cook with low-sodium ingredients. What foods are high in sodium? Vegetables Regular canned vegetables (not low-sodium or reduced-sodium). Sauerkraut, pickled vegetables, and relishes. Olives. Israeli fries. Onion rings. Regular canned tomato sauce [...] Soy milk. Yogurt. Low-sodium cheeses, such as Ugandan, [place] Teodoro, mozzarella, and ricotta. Sherbet or ice [...] foods you can pair it with. Herbs [place] leaves Soups, meat and vegetable dishes, and spaghetti sauce. Basil Scottish dishes, soups, pasta, and fish dishes. Cilantro Meat, poultry, and vegetable dishes. Randolph powder Marinades and Bulgarian dishes. Chives Salad dressings and potato dishes. Cumin Bulgarian dishes, couscous, and meat dishes. Dill Fish dishes, sauces, and salads. Fennel Meat and vegetable dishes, breads, and cookies. Garlic (do not use garlic salt) Scottish dishes, meat dishes, salad dressings, and sauces. Marjoram Soups, potato dishes, and meat dishes. Oregano Pizza and spaghetti sauce. Parsley Salads, soups, pasta, and meat dishes. Vanita Scottish dishes, salad dressings, soups, and red meats. [...] provider. Document Revised: 02/22/2020 Document Reviewed: 02/22/2020 [employer] Patient Education 2022 [employer] 01/26/2023 09:00:36 BMI for Adults BMI for [...] numbers. This can be done either in Ecuadorean (U.[place] or metric measurements. Note that charts and online BMI calculators are available to help you find your BMI quickly and easily without having to do these calculations yourself. To calculate your BMI in Ecuadorean (U.[place] measurements: 1.Measure your weight in pounds [...] Centers for Disease Control and Prevention: www.cdc.gov [place] Heart Association: www.heart.org National Heart, Lung, and Blood [place]: www.nhlbi.nih.gov Summary Body mass index (BMI) is a number that is calculated from a person's weight and height. BMI may help estimate how much of a person's weight is composed of fat. BMI can help identify thosewho may be at higher risk for certain medical problems. BMI can be measured using Ecuadorean measurements or metric measurements. BMI charts are used to identify whether you are underweight, normal weight, overweight, or obese. This information is not intended to replace advice given to you by your health care provider. Make sure you discuss any questions you have with your health care provider. Document Revised: 11/23/2019 Document Reviewed: 09/30/2019 [employer] Patient Education 2022 [employer] [facility] 10-24-2023 Evaluation + [...] Appointments Appointment Date:01/26/2023 08:00:00 AM Scheduled Provider: Location:[facility] Appointment Type: Medicare Wellness Subsequent Appointment Date:03/12/2023 08:00:00 AM Scheduled Provider:Linda Solorio CNP Location[facility] Appointment Type:BADH Follow Up Appointment Date:03/20/2023 09:00:00 AM Scheduled Provider:Christopher WELLS DO, FAAFP Location:[facility] Appointment Type: Open Future Scheduled Tests Laboratory* HgbA1c 03/27/22 * HgbA1c 06/25/22 [facility]10-23-20[facility] Evaluation note* Encounter Date Diagnosis Assessment [...] understands and is agreement with that plan. [employer] Other 10-11-2023 NoteMicrobiology PROCEDURE: Wound Culture [R1] SOURCE: Abscess BODY SITE: Leg L COLLECTED DATE/TIME: 12/22/2022 08:00 EDT RECEIVED DATE/TIME: 12/22/2022 12:42 EDT START DATE/TIME: 12/22/2022 12:42 EDT FREE TEXT SOURCE: Suzan DPM, Denton D Dolgreg DPM, Denton D FINAL REPORTS Final Report [...] Locations R1: This test was performed at: [facility], [address] [place] [address], [id number]- , [place], LcpfnkUniversity [facility]huja [facility] CenterComment on above:Performed By: #### [id number] ####[facility] [id number] [place], [place] [id number] Evaluation note* Encounter Date Diagnosis Assessment Notes [...] to see her back in 2 months. [employer] Other 08-21-2023 Evaluation note* Encounter Date Diagnosis [...] call us with any issues or concerns. [employer] Other 06-28-2023 Hospital Discharge instructions Patient Education [...] oral rehydration solution (ORS). This is an dnvz-dgd-ovmguqn medicine that helps return your body to [...] drinks, sports drinks, and soda. Eat bland, kpkh-lh-evjcno foods in small amounts as you are able. These foods include bananas, applesauce, rice, lean meats, toast, and crackers. Avoid alcohol. Avoid spicy or fatty foods. Medicines Take jcur-zim-ydvwnkl and prescription medicines only as told by your health care provider. If you were prescribed an antibiotic medicine, take it as told by your health care provider. Do notstop using the antibiotic even if you start to feel better. General instructions Wash your hands often using soap and water. If soap and water are not available, use a hand farm planner. Others in the household should wash their [...] soap and water are not available, usehand farm planner. Contact a health care provider if your diarrhea gets worse or you have new symptoms. Get help right away if you have signs of dehydration. This information is not intended to replace advice given to you by your health care provider. Make sure you discuss any questions you have with your health care provider. Document Revised: 09/11/2021 Document Reviewed: 09/11/2021 [employer] Patient Education 2022 [employer] 09/10/2022 07:52:51 High-Fiber Eating Plan High-Fiber Eating [...] Bulgur wheat. Millet. Quinoa. Bran muffins. Popcorn. [place] wafer crackers. Meats and other proteins [place]a beans, kidney beans, and chase beans. Soybeans. [...] Cream cheese. Sour cream. Fats and oils [place]. Beverages Soft drinks. Other foods Cakes and [...] provider. Document Revised: 07/05/2020 Document Reviewed: 07/05/2020 ElseNatanael Ulien Patient Education 2022 [employer] Follow Up Care 06/11/2022 09:32:08 With:Linda Solorio CNP Address: When:6 months [facility] 03-29-2023 Hospital Discharge [...] per serving. Talk with a diet and loan specialist (dietitian) if you have questions about [...] Bulgur wheat. Millet. Quinoa. Bran muffins. Popcorn. [place] wafer crackers. Meats and other proteins [place], kidney, and chase beans. Soybeans. Split peas. [...] Cream cheese. Sour cream. Fats and oils [place]. Beverages Soft drinks. Other foods Cakes and [...] 03/02/2006 Document Revised: 01/04/2018 Document Reviewed: 01/04/2018 [employer] Patient Education 2020 [employer] 06/11/2022 09:15:20 Hemorrhoids Hemorrhoids Hemorrhoids are swollen [...] 3 times a day. General instructions Take bkhz-dtr-ndvccmb and prescription medicines only as told by [...] 02/27/2001 Document Revised: 07/29/2019 Document Reviewed: 07/22/2018 [employer] Patient Education 2020 [employer] 06/11/2022 09:15:19 Colon Polyps Colon Polyps [...] 11/26/2004 Document Revised: 06/17/2018 Document Reviewed: 06/17/2018 [employer] Patient Education 2020 [employer] Follow Up Care 06/09/2022 16:22:13 With:Linda Solorio CNP Address: When:3 months [facility] 02-20-2023 Evaluation note* Encounter Date Diagnosis Assessment Notes Treatment Notes Treatment Clinical Notes Apr, Peripheral vascular disease, unspecified (ICD-10 - I73.9) Apr, Other specified postprocedural states (ICD-10 - Z98.890) Apr, Other Peripheral arterial occlusive disease She has a good clinical outcome. I will see her back in 6 months with ABIs on that day. She will continue her current medical regimen. [employer] Other 01-24-2023 Evaluation note* Encounter Date Diagnosis Assessment Notes Treatment Notes Treatment Clinical Notes Mar, Post-op pain (ICD-10 - G89.18) [employer] Other 01-16-2023 Evaluation + Plan note Diagnostic Tests Pending * PTH Intact 03/31/22 * Immunofixation Serum 03/31/22 * Immunofixation, Urine 03/31/22 * C3 Complement 03/31/22 * C4 Complement 03/31/22 * Free K+L Lt Chains,Qn,S 03/31/22 Future Scheduled Tests Laboratory* HgbA1c 03/27/22 * HgbA1c 06/25/22 [facility]01-16-2023 Evaluation note* Encounter Date Diagnosis Assessment [...] of both lower extremities (ICD-10 - I73.9) [employer] Other 01-12-2023 Evaluation + Plan note Future Scheduled Tests Laboratory* HgbA1c 03/27/22 * HgbA1c 06/25/22 [facility]11-14-2022 Evaluation note* Encounter Date Diagnosis Assessment [...] in 2 months time with the ABIs. 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 59 (F Appointment Date:10/16/2021 01:00:00 PM Scheduled Provider: Location:.DIETARY Appointment Type:DM Diabetes Group () [facility] Evaluation + Plan note Future Appointments Appointment Date:10/15/2021 09:00:00 AM Scheduled Provider: Location:.DIETARY Appointment Type:DM Diabetes Group () Appointment Date:10/28/2021 09:45:00 AM Scheduled Provider:Charis Daniel MD Location[facility] Appointment Type:Vascular New Patient (FT) Appointment Date:12/16/2021 09:40:00 AM Scheduled Provider:Christopher WELLS DO, FAAFP Location:[facility] Appointment Type: Open Future Scheduled Tests Laboratory* HgbA1c 12/25/21 * HgbA1c 03/27/22 * HgbA1c 06/25/22 Radiology* US PVR Lower EXT Complete Bilat [facility] Appointment Date:10/15/2021 09:00:00 AM Scheduled Provider: Location:.DIETARY Appointment Type:DM Diabetes Group (FT) Appointment Date:10/28/2021 09:45:00 AM Scheduled Provider:Charis Daniel MD Location[facility] Appointment Type:Vascular New Patient (FT) Appointment Date:12/16/2021 09:40:00 AM Scheduled Provider:Christopher WELLS DO, FAAFP Location:[facility] Appointment Type: Open Future Scheduled Tests Laboratory* HgbA1c 12/25/21 * HgbA1c 03/27/22 * HgbA1c 06/25/22 [facility] Appointment Date:12/16/2021 09:40:00 AM Scheduled Provider:Christopher WELLS DO, FAAFP Location:[facility] Appointment Type:FM Open Appointment Date:01/02/2022 01:00:00 PM Scheduled Provider: [facility]DM Diabetes Group (FT) Future Scheduled Tests Laboratory* HgbA1c 12/25/21 * HgbA1c 03/27/22 * HgbA1c 06/25/22 Radiology* US LE Venous Duplex Insufficiency Bilat 10/28/21 * CTA Abd Aorto-bilat/ iliofemoral runoff 10/28/21 [facility] App[facility]ments Appointment Date:12/16/2021 09:40:00 AM Scheduled Provider:Christopher WELLS DO, FAAFP Location:[facility] Appointment Type: Open Appointment Date:01/02/2022 01:00:00 PM Scheduled Provider: [facility] Type:DM Diabetes Group (FT) Appointment Date:02/24/2022 09:00:00 AM Scheduled Provider:Charis Daniel MD Location[facility] Appointment Type:Vascular Follow Up (FT) Future Scheduled Tests Laboratory* HgbA1c 12/25/21 * HgbA1c 03/27/22 * HgbA1c 06/25/22 [facility] Appointment Date:02/24/2022 09:00:00 AM Scheduled Provider:Charis Daniel MD Location[facility] Appointment Type:Vascular Follow Up (FT) Future Scheduled Tests Laboratory* HgbA1c 12/25/21 * HgbA1c 03/27/22 * HgbA1c 06/25/22 [facility] Appointment Date:02/24/2022 09:00:00 AM Scheduled Provider:Charis Daniel MD Location[facility] Appointment Type:Vascular Follow Up (FT) Future Scheduled Tests Laboratory* HgbA1c 03/27/22 * HgbA1c 06/25/22 [facility]ments Appointment Date:05/21/2022 01:05:00 PM Scheduled Provider: Location:[facility] Appointment Type:Surgery FT Diagnostic Tests Pending * O & P Exam, Routine 05/08/22 * Giardia lamblia, Direct Detection EIA 05/08/22 Future Scheduled Tests Laboratory* HgbA1c 03/27/22 * HgbA1c 06/25/22 [facility] Appointment Date:09/10/2022 08:00:00 AM Scheduled Provider:Linda Solorio CNP Location:[facility] Appointment Type:BAD Follow Up Future Scheduled Tests Laboratory* HgbA1c 03/27/22 * HgbA1c 06/25/22 [facility] Evaluation + Plan note Future Appointments Appointment Date:03/12/2023 08:00:00 AM Scheduled Provider:Linda Solorio CNP Location:[facility] Appointment Type:[facility] Follow Up Future Scheduled Tests Laboratory* HgbA1c 03/27/22 * HgbA1c 06/25/22 [facility] Evaluation + Plan note Future Appointments Appointment Date:12/18/2022 08:20:00 AM Scheduled Provider:Christopher WELLS DO, FAAFP Location:[facility] Appointment Type: Open Appointment Date:01/26/2023 08:00:00 AM Scheduled Provider: Location:[facility] Appointment Type: Medicare Wellness Subsequent Appointment Date:03/12/2023 08:00:00 AM Scheduled Provider:Linda Solorio CNP Location:[facility] Appointment Type:[facility] Follow Up Future Scheduled Tests Laboratory* HgbA1c 03/27/22 * HgbA1c 06/25/22 [facility] Appointment Date:01/06/2023 08:30:00 AM Scheduled Provider:Gary Cerda MD Location:[facility] Appointment Type:Pain Management - New (FT) Appointment Date:01/26/2023 08:00:00 AM Scheduled Provider: Location:[facility] Appointment Type: Medicare Wellness Subsequent Appointment Date:03/12/2023 08:00:00 AM Scheduled Provider:Linda Solorio CNP Location:[facility] Appointment Type:BAD Follow Up Appointment Date:03/20/2023 09:00:00 AM Scheduled Provider:Christopher WELLS DO, FAAFP Location:[facility] Appointment Type:FM Open Future Scheduled Tests Laboratory* HgbA1c 03/27/22 * HgbA1c 06/25/22 [facility] Appointment Date:01/19/2023 09:30:00 AM Scheduled Provider: [facility]oint[facility] Type:WC Assessment (FT) Appointment Date:01/26/2023 08:00:00 AM Scheduled Provider: Location:[facility] Appointment Type: Medicare Wellness Subsequent Appointment Date:01/27/2023 02:00:00 PM Scheduled Provider:Denton Mares DPM [facility] Appoint[facility] Type:WC Follow Up Visit (FT) Appointment Date:02/02/2023 09:45:00 AM Scheduled Provider: Location:[facility] Appointment Type:Surgery FT Appointment Date:02/17/2023 08:45:00 AM Scheduled Provider:Gary Cerda MD Location:[facility] Appointment Type:Pain Management - Follow Up (FT) Appointment Date:03/12/2023 08:00:00 AM Scheduled Provider:Linda Solorio CNP Location:[facility] Appointment Type:BAD Follow Up Appointment Date:03/20/2023 09:00:00 AM Scheduled Provider:Christopher WELLS DO, FAAFP Location:[facility] Appointment Type: Open Future Scheduled Tests Laboratory* HgbA1c 03/27/22 * HgbA1c 06/25/22 [facility] Appointment Date:01/26/2023 08:00:00 AM Scheduled Provider: Location:[facility] Appointment Type:FM Medicare Wellness Subsequent Appointment Date:01/27/2023 02:00:00 PM Scheduled Provider:Denton Mares DPM [facility] Appointment Type:WC Follow Up Visit (FT) Appointment Date:02/02/2023 09:45:00 AM Scheduled Provider: Location:[facility] Appointment Type:Surgery FT Appointment Date:02/17/2023 08:45:00 AM Scheduled Provider:Gary Cerda MD Location:[facility] Appointment Type:Pain Management - Follow Up (FT) Appointment Date:03/12/2023 08:00:00 AM Scheduled Provider:Linda Solorio CNP Location:[facility] Appointment Type:BAD Follow Up Appointment Date:03/20/2023 09:00:00 AM Scheduled Provider:Christopher WELLS DO, FAAFP Location:[facility] Appointment Type:FM Open Future Scheduled Tests Laboratory* HgbA1c 03/27/22 * HgbA1c 06/25/22 [facility] Appointment Date:01/27/2023 02:00:00 PM Scheduled Provider:Denton Mares DPM [facility] Appointment Type:WC Follow Up Visit (FT) Appointment Date:02/02/2023 09:45:00 AM Scheduled Provider: [facility] Appointment Type:Surgery FT Appointment Date:02/17/2023 08:45:00 AM Scheduled Provider:Gary Cerda MD Location:[facility] Appointment Type:Pain Management - Follow Up (FT) Appointment Date:03/12/2023 08:00:00 AM Scheduled Provider:Linda Solorio CNP Location:[facility] Appointment Type:BAD Follow Up Appointment Date:03/20/2023 09:00:00 AM Scheduled Provider:Christopher WELLS DO, FAAFP Location:[facility] Appointment Type:FM Open Appointment Date:02/01/2024 08:00:00 AM Scheduled Provider: Location:[facility] Appointment Type:FM Medicare Wellness Subsequent Future Scheduled Tests Laboratory* HgbA1c 03/27/22 * HgbA1c 06/25/22 * HCV Antibody RFX to Quant PCR 01/26/23 [facility] Evaluation + Plan note Future Appointments Appointment Date:02/02/2023 09:45:00 AM Scheduled Provider: Location:[facility] Appointment Type:Surgery FT Appointment Date:02/10/2023 02:30:00 PM Scheduled Provider:Denton Mares DPM [facility] Appointment Type:WC Follow Up Visit (FT) Appointment Date:02/17/2023 08:45:00 AM Scheduled Provider:Gary Cerda MD Location:[facility] Appointment Type:Pain Management - Follow Up (FT) Appointment Date:03/12/2023 08:00:00 AM Scheduled Provider:Linda Solorio CNP Location:[facility] Appointment Type:BAD Follow Up Appointment Date:03/20/2023 09:00:00 AM Scheduled Provider:Christopher WELLS DO, FAAFP Location:[facility] Appointment Type:FM Open Appointment Date:02/01/2024 08:00:00 AM Scheduled Provider: Location:[facility] Appointment Type: Medicare Wellness Subsequent Future Scheduled Tests Laboratory* HgbA1c 03/27/22 * HgbA1c 06/25/22 * HCV Antibody RFX to Quant PCR [facility] Appointment Date:02/16/2023 01:45:00 PM Scheduled Provider: [facility] Appointment Type:WC Assessment (FT) Appointment Date:02/16/2023 02:15:00 PM Scheduled Provider: Location:[facility] Appointment Type:Surgery FT Appointment Date:02/24/2023 02:00:00 PM Scheduled Provider:Denton Mares DPM [facility] Appointment Type:WC Follow Up Visit (FT) Appointment Date:03/02/2023 08:15:00 AM Scheduled Provider:Mara Pastor PA-C Location:[facility] Appointment Type:Pain Management - Follow Up (FT) Appointment Date:03/02/2023 09:40:00 AM Scheduled Provider:Linda Solorio CNP Location:[facility] Appointment Type:BAD Follow Up Appointment Date:03/20/2023 09:00:00 AM Scheduled Provider:Christopher WELLS DO, FAAFP Location:[facility] Appointment Type:FM Open Appointment Date:02/01/2024 08:00:00 AM Scheduled Provider: Location:[facility] Appointment Type: Medicare Wellness Subsequent Future Scheduled Tests Laboratory* HgbA1c 03/27/22 * HgbA1c 06/25/22 * HCV Antibody RFX to Quant PCR [facility] Appointment Date:02/24/2023 02:00:00 PM Scheduled Provider:Denton Mares DPM [facility] Appointment Type:WC Follow Up Visit (FT) Appointment Date:03/02/2023 09:40:00 AM Scheduled Provider:Linda Solorio CNP Location:[facility] Appointment Type:BADH Follow Up Appointment Date:03/04/2023 08:45:00 AM Scheduled Provider: [facility] Appointment Type:Surgery FT Appointment Date:03/20/2023 09:00:00 AM Scheduled Provider:Christopher WELLS DO, FAAFP Location:[facility] Appointment Type:FM Open Appointment Date:03/23/2023 08:30:00 AM Scheduled Provider:Mara Pastor PA-C Location:[facility] Appointment Type:Pain Management - Follow Up (FT) Appointment Date:02/01/2024 08:00:00 AM Scheduled Provider: Location:[facility] Appointment Type:FM Medicare Wellness Subsequent Future Scheduled Tests Laboratory* HgbA1c 03/27/22 * HgbA1c 06/25/22 * HCV Antibody RFX to Quant PCR [facility] Appointment Date:03/03/2023 02:30:00 PM Scheduled Provider:Denton Mares DPM [facility] Appointment Type:WC Follow Up Visit (FT) Appointment Date:03/04/2023 08:45:00 AM Scheduled Provider: Location:[facility] Appointment Type:Surgery FT Appointment Date:03/20/2023 09:00:00 AM Scheduled Provider:Christopher WELLS DO, FAAFP Location:[facility] Appointment Type:FM Open Appointment Date:03/23/2023 08:30:00 AM Scheduled Provider:Mara Pastor PA-C Location:[facility] Appointment Type:Pain Management - Follow Up (FT) Appointment Date:02/01/2024 08:00:00 AM Scheduled Provider: Location:[facility] Appointment Type:FM Medicare Wellness Subsequent Future Scheduled Tests Laboratory* HgbA1c 03/27/22 * HgbA1c 06/25/22 * HCV Antibody RFX to Quant PCR 01/26/23 [facility] Evaluation + Plan note Future Appointments Appointment Date:03/04/2023 08:45:00 AM Scheduled Provider: Location:[facility] Appointment Type:Surgery FT Appointment Date:03/20/2023 09:00:00 AM Scheduled Provider:Christopher WELLS DO, FAAFP Location:[facility] Appointment Type: Open Appointment Date:03/23/2023 08:30:00 AM Scheduled Provider:Mara Pastor PA-C Location:[facility] Appointment Type:Pain Management - Follow Up (FT) Appointment Date:02/01/2024 08:00:00 AM Scheduled Provider: Location:[facility] Appointment Type:FM Medicare Wellness Subsequent Future Scheduled Tests Laboratory* HgbA1c 03/27/22 * HgbA1c 06/25/22 * HCV Antibody RFX to Quant PCR [facility] Appointment Date:03/23/2023 08:30:00 AM Scheduled Provider:Mara Pastor PA-C Location:[facility] Appointment Type:Pain Management - Follow Up (FT) Appointment Date:07/28/2023 08:00:00 AM Scheduled Provider:Christopher WELLS DO, FAAFP [facility] [facility] Appointment Type: Open Appointment Date:02/01/2024 08:00:00 AM Scheduled Provider: Location:[facility] Appointment Type:FM Medicare Wellness Subsequent Future Scheduled Tests Laboratory* HgbA1c 03/27/22 * HgbA1c 06/25/22 * HCV Antibody RFX to Quant PCR 01/26/23 [facility] Evaluation noteNo assessment information available [facility] Work Phone: Evaluation noteNo InformationNort [employer] Other Evaluation note* Diagnosis Atherosclerosis of enterprise coronary artery of enterprise heart without angina pectoris Status post coronary angioplasty Postsurgical percutaneous transluminal coronary angioplasty status Essential hypertension Unspecified essential hypertension Hyperlipidemia, unspecified hyperlipidemia type PVD (peripheral vascular disease) ([facility]) Unspecified peripheral vascular disease Stage 3 chronic kidney disease, unspecified whether stage 3a or 3b CKD ([facility]) Sleep apnea, unspecified type documented in this encounter [facility] Work Phone: History general Narrative [...] stent 3 STENTS Hospitalization History see above [employer] Other History general Narrative - Reported* Type [...] LEG ANGIOPLASTY 03/2022 Hospitalization History see above [employer] Other Hospital course Narrative No data available for this section [facility] Hospital Discharge instructions No data available for this section [facility] Progress note No data available for this section [facility] Consultation (Routine) - Authorized Specialty Diagnoses / Procedures Referred By Fariha t Referred To Contact Cardiology Diagnoses Atherosclerosis of enterprise coronary artery of enterprise heart without angina pectoris Status post coronary angioplasty Essential hypertension Procedures Follow Up In Cardiology Fariha Giudry MD [address], [address] [address] Fariha Guidry MD [address] [place] [address] Referral ID Status Reason Start Date Expiration Date V isits Requested Visits Authorized [id number] Authorized 02/12/2023 02/12/2024 1 1 [facility] Work Phone: Chief Complaint * [...] * 5. Diabetes, managed by endocrinology in [place]. A1c remains above target * 6. Hypertension completely under control. * 7. High-risk medication with Xarelto, so far well-tolerated. Takes baby aspirin twice weekly * 8. Stage III chronic kidney disease to be monitored closely * 9. Recent diagnosis of intermittent claudications and PAD followed by vascular surgery Dr. Fredy Kaplan, she is currently going through walking exercise program * Fariha Guidry MD, [facility] Summary Purpose Family History Relationship Condition [...] Chief Complaint I70.213 i70.212 Chief Complaint PVD Chief Complaint 3 month follow up; P VOD;No testing Additional Source Comments Care Team (unrecognized sect ion and content) Team Status: Inactive Member Role Status Dates Christopher Wells DO Primary Care Provider Active Miguel Membreno MD Attending Provider Active Team Status: Active Member Role Status Dates Christopher Wells DO Primary Care Provider Active Team Status: Inactive Member Role Status Dates Christopher Wells DO Primary Care Provider Active Renetta Barahona NP-C Attending Provider Active Show Card Writer Relationship Specialty Start Date End Date Christopher Wells DO [address] [facility] [place] [id number] PCP - General 08/02/18 Team Status: Inactive Member Role Status Dates Christopher Wells DO Primary Care Provider Active Start: June 09, 2023 End: June 09, 2023 Miguel Membreno MD Attending Provider Active S tart: June 09, 2023 End: June 09, 2023 INFORMATION SOURCE (unrecogn ized section and content) DATE CREATED AUTHOR 01/16/2022 [facility] DATE CREATED AUTHOR AUTHOR'S ORGANIZ ATION 01/16/2022 [employer] DATE CREATED AUTHOR AUTHOR'S ORGANIZ ATION 09/19/2022 [facility] DATE CREATED AUTHOR AUTHOR'S ORGANIZ ATION 02/14/2023 [facility] DATE CREATED AUTHOR AUTHOR'S ORGANIZ ATION 02/28/2023 [facility] DATE CREATED AUTHOR AUTHOR'S ORGANIZ ATION 03/19/2023 [facility] EPIC DATE CREATED AUTHOR AUTHOR'S ORGANIZ ATION 06/12/2023 [facility] REASON FOR VISIT (unrecogniz ed section and [...] BE BASED ON THE PRIMARY CLINICAL RECORDS. [employer] provides no warranty or guarantee of the accuracy or completeness of information in this document.
== END 2023-06-15 07:54 | disposition home or self-care (01) ==
LOC: VC 07:53
PROVIDERS: PCP Radiology Diagnostic Radiology; Visit Provider Radiology Diagnostic Radiology
DX: I80.01 Phlebitis and thrombophlebitis of superficial vessels of right lower extremity (principal)
CPT/HCPCS: 93971; G0463

== ENCOUNTER 2023-06-18 07:51 | Outpatient (OUT) | payer MEDICARE, BC, SELFPAY ==
--- NOTE | 2023-06-18 07:52 | VEIN_ITS ---
[address] [address] Patient Name: GEOVANNY CORCORAN MRN: [id number] date: 1950 Sex: F Assigned Patient Location: Current Patient Location: Accession/Order Number: [id number] Exam Date: 06/18/2023 07:52 Report Date: 06/18/2023 10:11 At the request of: AILIN JC Procedure: VC INJ Foam Sclerosant WUS ABLE BODIED WATCHMAN PROCEDURE: VC INJ Foam Sclerosant WUS ABLE BODIED WATCHMAN HISTORY: I83.813 Bilateral painful varicose veins Pre-operative Diagnosis: CEAP class C6 venous insufficiency with pain, tenderness, edema and incompetent branch saphenous vein(s), chronic venous insufficiency left leg secondary to venous incompetence Post-operative Diagnosis: CEAP class C6 venous insufficiency with pain, tenderness, edema and incompetent branch saphenous vein(s), chronic venous insufficiency left leg secondary to venous incompetence Procedure Performed: 1. Ultrasound-guided microfoam chemical ablation with Varithenaregistered 2. Intraoperative ultrasound guidance Physician: Christopher Delvalle M.D. Anesthesia: None Indications for Procedure: 72 year old female. Symptoms including lower extremity pain, dilated bulging veins, swelling for many years despite conservative medical therapy including medical compression stockings, exercise and analgesics. Prior procedures include endovenous laser ablation and microfoam chemical ablation. Multiple incompetent varicosities of the left leg. Duplex scan showed reflux and enlarged diameters up to 5 mm. The patient underwent informed consent including management options where the complications of infection, bleeding, pain, and skin injury were discussed. Particular attention was spent discussing thrombus extension and deep vein thrombosis as well as the possibility of pulmonary embolus and treatment with oral or injectable blood thinners. Procedure: The patient walked to the procedure room. All applicable staff donned appropriate apparel. A procedure timeout was performed to confirm correct patient, correct extremity, correct procedure, and correct room set-up including presence of all applicable supplies, devices, and drugs. A duplex ultrasound, performed by myself confirmed the location and incompetence of branch saphenous varicosities and their course was marked on the skin together with the dilated tributaries. The extent of treatment of the vein and the associated varicosities was determined through ultrasound mapping. The skin was prepped and then punctured with a butterfly needle and advanced under ultrasound guidance. The Varithenaregistered canister was activated and the canister was primed and purged as required in the instructions for use. Varithenaregistered was drawn into a sterile syringe. Varithenaregistered was slowly administered at 0.5-1.0 cc/second with close observation by ultrasound of its course in the vessels. Total volume utilized was: 12 mL (8 mL into a 4 mm varicosity distal medial lower left leg; 4 mL into a 5 mm varicosity mid medial lower leg). Following administration of Varithenaregistered the leg was elevated and the patient was asked to repeatedly dorsiflex the ankle to limit flow of Varithenaregistered into perforating veins. Once appropriate spasm had been confirmed in the treated veins, the vascular catheter was removed from the leg and light pressure was applied over the puncture site for hemostasis. The common femoral and deep superficial veins were then evaluated for flow and compressibility prior to dressing placement. The lower extremity was kept elevated at 45 degrees above the horizontal and cording material was applied over the saphenous segments and tributaries to allow for eccentric compression over the target vessels including the targeted saphenous vein(s). A multilayer dressing was applied consisting of foam pads, coban and thigh-high 20-30 mm Hg compression elastic support hose were placed on the patient. The leg was lowered only after compression had been applied and the patient was immediately ambulatory. The patient ambulated 10 minutes under supervision and was without apparent concerns at time of release. Post-care instructions include advising patient to keep post-treatment bandages in place and dry for 48 hours, avoid extended periods of inactivity, avoid heavy exercise for one week, wear compression stockings on the treated leg continuously for two weeks, to walk daily for 10 minutes over the next month. The patient was instructed to take an anti-inflammatory medicine as needed and to follow up for color duplex scan of the Saphenous veins, the treated branch saphenous varicosities, the adjacent deep veins, and additional treatment within 7 days. PERSONNEL: Ottoniel Mariscal RN Electronically authenticated by: CHRISTOPHER DELVALLE Date: 06/18/2023 10:11
--- OUTSIDE RECORDS SUMMARY | 2023-06-18 07:54 | XMS_ITS | CCD ---
Author Organization [facility] Care Team Providers Care Package Delivery Room Service Runner Name Role Phone Christopher Wells Unavailable Unavailable [...] Care Provider MD Miguel Membreno Attending Provider [phone] Christopher Wells Primary Care Unavailable Guidry, Dr. Fariha Norwood Attending Carolina vailable DO Christopher Wells Primary Care Provider MD Miguel Membreno Attending Provider [phone] [facility] Bar[place]ona Attending Provider Christopher Wells DO Primary Care Provider FARIHA GUIDRY Attending Unavailable CHRISTOPHER WELLS Primary Care Unavailable DO Christopher Wells Primary Care Provider MD Miguel Membreno Attending Provider [phone] Russell, Christopher A Primary Care Unavailable Renetta [...] Attending Unavailable Dolce, Denton Gomez Attending Unavailable Pomeroy, Catrachito D Referring Unavailable Pomeroy, Catrachito D Attending Unavailable Pomeroy, Catrachito D Admitting Unavailable Pomeroy, Catrachito D Referring Unavailable Pomeroy, Catrachito D Attending Unavailable Pomeroy, Catrachito D Admitting Unavailable Guidry, Fried Admitting [...] Drug Allergy 023 Unknown (qualifier value), Diarrhea [facility] 250 DO Work Phone: (20 sources) hydroCHLOROthiazide; Translations: [hydroCHLOROthiazide CAPS] Drug Allergy 023 Diarrhea [facility] 250 DO Work Phone: (20 sources) hydroCHLOROthiazide / Spironolactone; Translations: [Aldactazide] Drug Allergy 023 Weal (disorder), Diarrhea [place] [address] DO Work Phone: (20 sources) Lisinopril; Translations: [Zestril] Drug Allergy 023 Diarrhea (finding), Diarrhea [facility] 250 DO Work Phone: (20 sources) metFORMIN; Translations: [Glucophage] Drug Allergy 023 Diarrhea [facility] 250 DO Work Phone: (20 sources) valsartan; Translations: [Diovan] Drug Allergy 023 Unknown (qualifier value), Diarrhea [facility] 250 DO Work Phone: (20 sources) hydroCHLOROthiazide / Lisinopril; Translations: [hydrochlorothiazide-l isinopril] Drug Allergy Diarrhea (finding) [facility] (20 sources) Terazosin; Translations: [terazosin] Drug Allergy 019 Unknown, Unknown Reaction [facility] (9 sources) metFORMIN Drug Allergy Unknown [facility] Other (8 sources) Doxazosin; Translations: [DOXAZOSIN] Drug Allergy Unknown Reaction [facility] (7 sources) hydroCHLOROthiazide; Translations: [HYDROCHLOROTHIAZIDE] Drug Allergy Unknown Reaction, Diarrhea [facility] (7 sources) Lisinopril; Translations: [LISINOPRIL] Drug Allergy Unknown Reaction [facility] (7 sources) metFORMIN; Translations: [METFORMIN] Drug Allergy Unknown Reaction, Diarrhea [facility] (6 sources) pioglitazone; Translations: [pioglitazone] Drug Allergy Unknown Reaction [facility] (6 sources) Spironolactone; Translations: [spironolactone] Drug Allergy Unknown Reaction, Hives [facility] (7 sources) valsartan; Translations: [VALSARTAN] Drug Allergy Unknown Reaction [facility] (1 source) SPIRONOLACTON-HYDROCHL OROTHIAZ; Translations: [SPIRONOLACTON-HYDROCH LOROTHIAZ] Propensity to adverse reactions to drug (disorder) [place] [address] Repository (1 source) Terazosin Drug Allergy [facility] Repository (1 source) Lisinopril; Translations: [Prinivil] Drug Allergy [facility] Repository Medications Current Medications Medication Drug [...] Wheezing, 8.5 gm, Refill(s) 0, [id number], 165, cm, 04/10/23 9:26:00 EST, Height/Length Dosing, [...] 90 tab(s), Refills(s) 3, Pharmacy: [facility] #[id number], 166, cm, 10/28/21 9:59:00 EDT, Height/Length Dosing, [...] 6 tab(s), Refills(s) 0, [facility]: [facility] #[id number], 165, cm, 04/10/23 9:26:00 EST, Height/Length Dosing, [...] 60 tab(s), Refills(s) 5, Pharmacy: [facility] #[id number], 165, cm, 09/24/21 8:39:00 EDT, Height/Length Dosing, [...] 20 cap(s), Refills(s) 1, Pharmacy: [facility] #[id number], 165, cm, 12/18/22 8:28:00 EDT, Height/Length Dosing, [...] E11.65, # 5 EA, Refills(s) 11, Pharmacy: [facility] #[id number], 165, cm, 06/11/22 9:10:00 EDT, Height/Length Dosing, 97.6, kg, 06/11/22 9:10:00 EDT, Weight Dosing Start Date: 08/22/22 Status: Ordered Start: 08-22-2022 inject 30 [IU] by griffin bcutaneous injection twice daily Tresiba FlexTouch 100 units/mL subcutaneous solution 30 unit(s), SubCutaneous, BID, Dx E11.65, # 5 EA, Refills(s) 11, Pharmacy: [facility] #[id number], 165, cm, 06/11/22 9:10:00 EDT, Height/Length Dosing, 97.6, kg, 06/11/22 9:10:00 EDT, Weight Dosing Start Date: 08/22/22 Status: Ordered Start: 09-24-2021 inject 30 [IU] by griffin bcutaneous injection twice daily Tresiba FlexTouch 100 units/mL subcutaneous solution 30 unit(s), SubCutaneous, BID, Dx E11.65, # 5 EA, Refills(s) 11, Pharmacy: [facility], 165, cm, 09/24/21 8:39:00 [...] 1:00am Start: 02-18-2023 take 1 tablet by [facility] once daily Multivitamin Active 1 TAB PO [...] 0.4 MG Sublingual Active polyethylene glycol 3350 895119 mg / potassium chloride 1480 mg / sodium bicarbonate 5720 mg / sodium chloride 03910 mg powder for oral solution (1 source) Osmotic Laxative Start: 05-05-2022 NuLYTELY Flannery oral powder for reconstitution See Instructions, 1 EA, Refill(s) 0, Prior to colonoscopy., [facility] #[id number], 165, cm, 05/05/22 13:40:00 EST, Height/Length Dosing, 95.2, kg, 05/05/22 13:40:00 EST, Weight Dosing Start Date: 05/05/22 Status: Ordered Potassimin (9 sources) Potassimin Activ e potassium chloride 10 meq extended release oral capsule (20 sources) Start: 04-17-2021 take 10 mEq by mouth once daily Potassium Chloride Active 10 MEQ PO Daily April 07, 2022 1:00am Start: 04-17-2021 take 1 capsule by [facility] once daily potassium chloride [...] day(s), # 21 tab(s), Refills(s) 0, Pharmacy: [facility] #[id number], 165, cm, 04/10/23 9:26:00 EST, Height/Length Dosing, [...] 06, 2018 12:00am Has been instructed by [facility] to stop 2 days before heart cath Start: 08-06-2018 take 20 mg by mouth once daily Rivaroxaban Active 20 MG PO Every evening August 06, 2018 12:00am Has been instructed by [facility] to stop 2 days before heart cath [...] capsule Indications: Mixed hyperlipidemia , Atherosclerosis of [place] coronary artery of [place] heart without angina pectoris TAKE 1 CAPSULE [...] sources) Coronary atherosclerosis; Translations: [Coronary atherosclerosis of [place] coronary artery] Onset: 09-18-19 23 09-11-2020 Chronic Coronary atherosclerosis and other heart disease (16 sources) Past history of procedure; Translations: [Percutaneous transluminal coronary angioplasty status] Onset: 01-10-2002-12-2023 Episodic Coronary atherosclerosis and other heart disease (3 sources) Coronary atherosclerosis and other heart disease; Translations: [Atherosclerosis of [place] arteries of left leg with ulceration of [...] limb due to atherosclerosis; Translations: [Atherosclerosis of [place] arteries of extremities with gangrene, left leg] [...] medications] Episodic Other aftercare (1 source) Other fci (current) drug therapy; Translations: [Other fci (current) drug therapy] Onset: 09-18-19 Episodic Other aftercare (1 source) Long-term current use of drug therapy; Translations: [Other terminal carman (current) drug therapy] Onset: 01-27-20 Episodic Other aftercare (1 source) Long-term current use of anticoagulant; Translations: [manager intermediate (current) use of anticoagulants] Onset: 01-27-20 Episodic Other aftercare (2 sources) Long-term current use of insulin; Translations: [manager intermediate (current) use of insulin] Onset: 01-27-20 Episodic [...] Facil ity Consultation Noteon 06-10-19 Consultation Note [id number]#1.00T IFF Normal [facility] Consent for Treatmenton 04-17 Consent for Treatment [id number]#1.00T IFF Normal [facility] Consent for Treatment [id number]#1.00T IFF Normal [facility] RegW7nnc 05-11-2023 HbA1c (Bld) [Mass fraction] 11.3 % High <=5.9 [facility] Comment on above: Performed By: #### 7 [id number] ####[facility] [id number] [place] [address] Physician Orderon 05-11-2023 Physician Order [id number]#1.00T IFF Normal [facility] Renal Panelon 05-11-2023 Albumin [Mass/Vol] 3.9 g/dL Normal 3.3-5.0 [facility] Comment on above: Performed By: #### 2 [id number], [id number] #### [facility] [address] [place] [address] Anion gap [Moles/Vol] 13 mmol/L Normal 6-16 [facility] Comment on above: Performed By: #### 2 003588, [id number] #### [facility] [address] [place] [address] BUN/Creat Ratio 16 No Units Normal 10-20 [facility] Comment on above: Performed By: #### 2 [id number], [id number] #### [facility] [address] [place] [address] Calcium [Mass/Vol] 8.9 mg/dL Normal 8.9-11.1 [facility] Comment on above: Performed By: #### 2 088028, [id number] #### [facility] [address] [place] [address] Chloride [Moles/Vol] 101 mmol/L Normal 101-111 [facility] Comment on above: Performed By: #### 2 211431, [id number] #### [facility] [address] [place] [address] CO2 [Moles/Vol] 28 mmol/L Normal 21-31 [facility] Comment on above: Performed By: #### 2 662921, [id number] #### [facility] [address] [place] [address] Creatinine [Mass/Vol] 1.2 mg/dL Normal 0.5-1.3 [facility] Comment on above: Performed By: #### 2 623893, [id number] #### [facility] [address] [place] [address] Glucose [Mass/Vol] 385 mg/dL High 55-199 [facility] Comment on above: Performed By: #### 2 163485, [id number] #### [facility] [address] [place] [address] Phosphate [Mass/Vol] 3.5 mg/dL Normal 1.9-4.6 [facility] Comment on above: Performed By: #### 2 243286, [id number] #### [facility] [address] [place] [address] Potassium [Moles/Vol] 4.3 mmol/L Normal 3.5-5.3 [facility] Comment on above: Performed By: #### 2 662538, [id number] #### [facility] [address] [place] [address] Sodium [Moles/Vol] 138 mmol/L Normal 135-145 [facility] Comment on above: Performed By: #### 2 502953, [id number] #### [facility] [address] [place] [address] Urea nitrogen [Mass/Vol] 19 mg/dL Normal 5-21 [facility] Comment on above: Performed By: #### 2 726010, 7777311 #### [facility] [address] [place] [address] U Protein/Creat Ratioon 04-17 U Creatinine 34.3 mg/dL Invalid Interpretation Code [facility] Comment on above: Performed By: #### 1 [id number], [id number] #### [facility] [address] [place] [address] U Prot/Creat Ratio 13.70 mg/gm Cr Normal .00-200.00 [facility] Comment on above: Performed By: #### 1 7186847, [id number] #### [facility] [address] [place] [address] Ur Total Protein <6.0 Invalid Interpretation Code [facility] Comment on above: Performed By: #### 1 [id number], [id number] #### [facility] [address] [place] [address] Urinalysison 05-11-2023 Bilirubin Ql (U) Negative Normal Negative [facility] Comment on above: Performed By: #### 1 4875314, [id number] #### [facility] [address] [place] [address] Clarity (U) CLEAR Normal Clear [facility] Comment on above: Performed By: #### 1 [id number], [id number] #### [facility] [address] [place] [address] Color (U) YELLOW Normal Yellow [facility] Comment on above: Performed By: #### 1 4845498, [id number] #### [facility] [address] [place] [address] Epithelial cells.squamous LM.HPF (Urine sed) [#/Area] 0-2 Normal 0-2 [facility] Comment on above: Performed By: #### 1 [id number], [id number] #### [facility] [address] [place] [address] Glucose Test strip (U) [Mass/Vol] 3+ Abnormal Negative [facility] Comment on above: Performed By: #### 1 3060614, [id number] #### [facility] [address] [place] [address] Hemoglobin Ql (U) Negative Normal Negative [facility] Comment on above: Performed By: #### 1 4712042, [id number] #### [facility] [address] [place] [address] Ketones (U) [Mass/Vol] Negative Normal Negative [facility] Comment on above: Performed By: #### 1 5066245, [id number] #### [facility] [address] [place] [address] [place].plasma/Lith ium.RBC (Bld) [Mass ratio] 0-3 Normal 0-3 [facility] Comment on above: Performed By: #### 1 6550937, [id number] #### [facility] [address] [place] [address] Nitrite Ql (U) Negative Normal Negative [facility] Comment on above: Performed By: #### 1 7926866, [id number] #### [facility] [address] [place] [address] pH (U) 5.5 [pH] Invalid Interpretation Code 5.0-9.0 [facility] Comment on above: Performed By: #### 1 5801842, [id number] #### [facility] [address] [place] [address] Protein (U) [Mass/Vol] Negative Normal Negative [facility] Comment on above: Performed By: #### 1 2325613, [id number] #### [facility] [address] [place] [address] Specific gravity (U) [Rel density] 1.010 Invalid Interpretation Code 1.005-1.030 [facility] Comment on above: Performed By: #### 1 2954588, [id number] #### [facility] [address] [place] [address] Type of Urine collection method Clean Catch Normal [facility] Comment on above: Performed By: #### 1 5650746, [id number] #### [facility] [address] [place] [address] Urobilinogen Qn (U) 0.2 {Donell'U}/dL Normal 0.0-1.0 [facility] Comment on above: Performed By: #### 1 6354999, [id number] #### [facility] [address] [place] [address] WBC Auto Ql (U) Negative Normal Negative [facility] Comment on above: Performed By: #### 1 7909621, [id number] #### [facility] [address] [place] [address] WBC LM.HPF (Urine sed) [#/Area] 0-5 Normal 0-5 [facility] Comment on above: Performed By: #### 1 2557711, [id number] #### [facility] [address] [place] [address] eGFRon 05-11-2023 eGFR 48 mL/min/1.73 m2 Low >=59 [facility] Comment on above: Order Comment: Order added by Discern Expert. Performed By: #### 2 952487, [id number] #### [facility] [address] [place] [address] Consent for Treatmenton 03-17 Consent for Treatment [id number]#1.00T IFF Normal [facility] Discharge Instructionson Discharge Instructions [id number]#1.00 TIFF Normal [facility] ED Clinical Summaryon 2023 ED Clinical Summary (Inserted Image. Carolina ble to display) [place] [id number] ED Clinical Summary Person Information Name: EVON CORCORAN Laura/[facility] Age: 72 Years : 1950 Sex: Female Language: Maltese PCP: Christopher WELLS DO, FAAFP Marital Status: [...] 04/10/2023 11:23:38 04/10/2023 11:23:38 04/10/2023 11:23:38 ADDRESS: [address] [place] [address] [address] [facility] [id number] PHYS DOC NOTES: MEDICAL INFORMATION: Prescriptions Given: New Medications [facility], [address] [place], [place] [id number], [phone] albuterol (Albuterol (Eqv-ProAir HFA) 90 mcg/inh inhalation [...] Follow up: With: Address: When: Christopher WELLS [address] [place] [address] [place] [id number] [facility] ([employer] In 3 days 04/13/2023 DIAGNOSIS: Bronchitis Normal [facility] ED Note-Physicianon 04-10-19 ED Note-Physician Basic [...] No known sick contacts. She is taking nwof-pwe-uqoccve cough and cold medications. Review of Systems [...] Wheezing, 8.5 gm, Refill(s) 0, [facility] #04190, 165, cm, 04/10/23 9:26:00 EST, Height/Length Dosing, 96.9, kg, 04/10/23 9:26:00 EST, Weight Dosing azithromycin, = 1 packet(s), Oral, As Directed, as directed on package labeling, X 5 day(s), # 6 tab(s), Refills(s) 0, [facility] #[id number], 165, cm, 04/10/23 9:26:00 EST, Height/Length Dosing, 96.9, kg, 04/10/23 9:26:00 EST, Weight Dosing predniSONE, 60 mg = 3 tab(s), Oral, Daily, X 7 day(s), # 21 tab(s), Refills(s) 0, Pharmacy: [facility] #80101, 165, cm, 04/10/23 9:26:00 EST, Height/Length Dosing, [...] WELLS In 3 days 04/13/2023 EST [address] [facility] [place] [id number] [facility] (1) Additional Instructions: Patient Education Acute Bronchitis, Adult Attestation Patient seen and evaluated by the physician practice assistant. Attending physician was present in the emergency department and supervised care. This visit was performed by both the physician and an APC. I performed all aspects of the MDM as documented. This report was transcribed using voice recognition software. Every effort was made to ensure accuracy, however, inadvertently computerized communications representative mistakes may be present. Appropriate healthcare PPE was used in evaluating this patient. The patient was placed in a mask. The healthcare provider was wearing mask, gloves, and utilizing proper hand hygiene. All equipment was properly cleansed. Problem List/Past Medical History Ongoing CAD in [place] artery Chronic renal impairment, stage 3a Claudication [...] nonproliferative diabetic (more content not included)... Normal [facility] Comment on above: Result Comment: Elec [...] Follow these instructions at home: ? Take ffaa-wxi-oxgqcuh and prescription medicines only as told by [...] and water are not available, use hand checkroom attendant. ? Avoid contact with people who have [...] is easier to cough up. ? Take sxwf-hcl-imdkdgi and prescription medici (more content not included)... Normal [facility] ED Patient Summaryon 024 ED Patient Summary (Inserted Image. Carolina ble to display) [place] [id number] Patient Discharge Instructions Person Information Name: EVON CORCORAN Age: 72 Years Arrival Date: 04/10/2023 09:13:22 Discharge Diagnosis: Bronchitis Primary Care Physician: Christopher WELLS DO, FAAFP Provider Information Primary Provider: Malvin Gupat M.D. Advanced Comptometrist:Radhames Suarez PA-C The exam and treatment you received in the Emergency Department were for an urgent problem and are not intended as complete care. It is important that you follow up with a doctor, nurse practitioner, or physician?s practice assistant for ongoing care. If your symptoms [...] When: Christopher WELLS [address], [place] [address] Business (1) In 3 days 04/13/2023 In the event that this physician does not participate in your insurance network, please consult with your insurance company to find a nearby participating provider. Patient Education Materials: Acute Bronchitis, Adult A MESSAGE TO ALL PATIENTS REGARDING OPIOIDS PRESCRIPTION OPIOIDS: WHAT YOU NEED TO KNOW Prescription opioids can be used to help relieve szazsitb-mh-xihlzg pain and are often prescribed following a [...] be struggling with addiction, tell your health health care administrator and ask for guidance or call [facility] Helpl[facility] at [phone]. Supercell (more content not included)... Normal [facility] XR Chest 2 Viewson XR Chest 2 [...] MD Transcribed by: KATEY Technologist: JUAN MIGUEL [facility] Consent for Treatmenton Consent for Treatment [id number]#1.00T IFF [facility] Consultation Noteon 03-23-19 24 Consultation Note [...] 11, Dx: E11.9 Directions: BID, [facility] #[facility]28, Supply, 165, cm, 06/11/22 9:10:00 EDT, Height/Length Dosing, 97.6, kg, 06/11/22 9:10:00 EDT, Weight Dosing Tresiba FlexTouch 100 units/mL subcutaneous solution: 50 unit(s), SubCutaneous, Daily, Dx E11.65, # 5 EA, Refills(s) 11, Pharmacy: [facility] #[id number], 165, cm, 06/11/22 9:10:00 EDT, Height/Length Dosing, 97.6, kg, 06/11/22 9:10:00 EDT, Weight Dosing chlorthalidone 25 mg Tab: 25 mg = 1 tab(s), Oral, Bedtime, # 90 tab(s), Refills(s) 1, Pharmacy: [facility] #[id number], 165, cm, 09/10/22 8:16:00 EDT, Height/Length Dosing, 97.4, kg, 09/10/22 8:16:00 EDT, Weight Dosing potassium chloride 10 mEq Cap-ER: 10 mEq = 1 cap(s), Oral, Daily, # 90 cap(s), Refills(s) 3, Pharmacy: [facility] #[id number], 165, cm, 05/21/22 12:25:00 EST, Height/Length Dosing, [...] Problems HTN - Hypertension / SNOMED CT 4873725717 / Confirmed Familial hypercholesteremia / SNOMED CT 9871182393 / Confirmed Non-smoker / SNOMED CT 87490438 / Confirmed CAD in [place] artery / SNOMED CT 03421858 / Confirmed History of DVT in adulthood / SNOMED CT 6349217339 / Confirmed Type 2 diabetes mellitus with hypercholesterolemia / SNOMED CT 973007530 / Confirmed linked DM with hypercholesterolemia per outpatient CDI policy. Type 2 diabetes mellitus with stage 3 chronic kidney disease / SNOMED CT 820995609 / Confirmed linked DM with CKD per outpatient CDI policy. Mild nonproliferative diabetic retinopathy of both eyes / SNOMED CT 054177860 / Confirmed noted in 08/21/2019 Diabetic Eye Exam. added per outpatient CDI policy. 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 Normal [facility] Comment on above: Result Comment: Elec tronically Signed By: Dawit BARTH, Mara\.br\Date and Time Signed: 03/23/23 09:07 EST Legal Correspondence Officeo n 03-23-2023 Legal Correspondence Office [id number]#1.00 TIFF Normal [facility] Office/Clinic Note-Physician on 03-23-2023 Office/Clinic Note-Physician [id number]#1.00 TIFF Normal [facility] Patient Correspondenceon Patient Correspondence [id number] TIFF Normal [facility] Patient Correspondence [id number]#1.00 TIFF Normal [facility] Patient Correspondence [id number]#1.00 TIFF Normal [facility] Patient Correspondence [id number]#1.00 TIFF Normal [facility] Patient History Officeon Patient History Office [id number]#1.00 TIFF Normal [facility] Family Medicine Office/Clini c Noteon 03-20-2023 [...] re: potential procedure: Clinically currently asymptomatic and ghe-vpkt-adbisrdofan. Please see Dr. Castro's consultation 2. BMI [...] and exercise. 4. Long-term insulin use (Z79.4: skilled nursing (current) use of insulin) Dr Tuyet griggs. 5. Mild nonproliferative diabetic retinopathy of both eyes (E11.3293: Type 2 diabetes mellitus with mild nonproliferative diabetic retinopathy without macular edema, bilateral) Follow-up with microphone operator 6. Type 2 diabetes mellitus with hypercholesterolemia (E11.69: Type 2 diabetes mellitus with other specified complication) Tresiba 50 units SQ every morning with sliding scale per med rec per Dr. Salter. Continue losartan: Sugars improved, surveillance A1c's per Dr. Ruggiero 7. Type 2 diabetes mellitus with stage (more content not included)... Normal [facility] Comment on above: Result Comment: Elec [...] plan? Your health care provider or certified coder can help you make a plan [...] stroke). Where to find more information ? [place] Diabetes Association: www.diabetes.org Summary ? Exercising regularly is important for overall health, especially for people who have diabetes mellitus. ? Exercising has many health benefits. It increases muscle strength and bone density and reduces body fat and stress. It also lowers and controls blood glucose. ? Your health care provider or certified coder can help you make an activity [...] provider. Document Revised: 11/28/2019 Document Reviewed: 11/28/2019 [employer] Patient Education ? 2022 [employer] [facility] Nursing Note - Woundon 03-19 Nursing Note - Wound [id number]#2.00 TIFF [facility] Consultation Noteon 03-07-20 Consultation Note [id number] 204 [id number]#1.00T IFF Normal [facility] CHEMISTRYOrdered By: Lab ROP User on 03-04-2023 Glucose [Mass/Vol] 78 mg/dL Normal 55 - 99 mg/dL FTM C POC Subsection POC Device SN [id number] Invalid Interpretation Code [facility] POC Subsection POC Username MACIE POTTS Invalid Interpretation Code [facility] POC Subsection Sodium [Moles/Vol] [id number] mmol/L Invalid Interpretation Code [facility] POC Subsection Capillary Glucose POCon 02-14 Glucose [Mass/Vol] 78 mg/dL Normal 55-99 [facility] Comment on above: Performed By: #### 2 [id number] #### [facility] Laboratory [address] [place] [address] Consent for Procedure/Surger yon 03-04-2023 Consent for Procedure/Surgery [id number]#1.00 [facility] for Treatmenton 02-14 Consent for Treatment [id number]#1.00T IFF [facility] Discharge Instructionson Discharge Instructions [id number]#1.00 TIFF Normal [facility] Insurance Correspondenceon 05-05-2022 Insurance Correspondence [id number]#1.00 TIFF Normal [facility] IntraOperative Documentson 05-05-2022 IntraOperative Documents [id number]#1.00 TIFF [facility] Main OR Intraoperative Recor don 03-04-2023 Main OR Intraoperative Record IntraOp Document Type FTPM Summary Primary Physician: Nicola Tapia DO Finalized Date/Time: 03/04/23 09:06:01 Pt. Name: EVON CORCORAN/Sex: 1950 Female Med Rec #: [id number] Physician: Nicola Tapia DO Financial #: [id number] Pt. Type: P Room/Bed: / Admit/Disch: 03/04/23 [...] Leanne Montenegro Role Performed Surgeon - Primary Dairy Tester - Primary Scrub - Primary Time In 03/04/23 09:01:00 03/04/23 09:01:00 03/04/23 09:01:00 Time Out 03/04/23 09:06:00 03/04/23 09:06:00 03/04/23 09:06:00 Procedure HIP INJECTION(Left) HIP INJECTION(Left) HIP INJECTION(Left) Comments Last Modified By: Crow ECHAVARRIA, Estrellita Maria RN, Estrellita Ryder RN 03/04/23 09:05:56 03/04/23 09:05:56 03/04/23 09:05:56 Entry 4 Case Attendee Ervin Mckeon Role Performed Compressed Air Pile Driver Operator Time In 03/04/23 09:01:00 Time Out 03/04/23 [...] and tissue Entry 1 Skin Integrity Intact, [place], Warm, and Skin Abnormality No Dry Outcomes [...] injury related (more content not included)... Normal [facility] Main OR Preoperative Recordo n 03-04-2023 Main OR Preoperative Record Holding Area Document Type FTPM Summary Primary Physician: Nicola Tapia DO Finalized Date/Time: 03/04/23 08:19:34 Pt. Name: EVON CORCORAN Get Veras/Sex: 1950 Female Med Rec #: [id number] Physician: Nicola Tapia DO Financial #: [id number] Pt. Type: P Room/Bed: / Admit/Disch: 03/04/23 [...] Signed By: Macie Potts RN 03/04/23 08:19 [facility] Consent for Treatmenton 02-13 Consent for Treatment [id number]#1.00T IFF [facility] Multi-Wound Charton 03-03-20 Multi-Wound Chart [id number] 202 [id number]#1.00 TIFF [facility] Nursing Assessment - Woundon 03-03-2023 Nursing Assessment - Wound [id number]#1.00 TIFF [facility] Physician Orderon 03-03-2023 Physician Order [id number]#1.00 TIFF [facility] Progress Note - Woundon 02-13 Progress Note - Wound [id number]#1.00 TIFF [facility] Correspondence - Woundon Correspondence - Wound [id number]#1.00 TIFF [facility] Consent for Procedure/Surger yon 02-24-2023 Consent for Procedure/Surgery [id number]#1.0 0TIFF [facility] Consent for Treatmenton 02-13 Consent for Treatment [id number]#1.00T IFF [facility] Multi-Wound Charton 02-25-20 Multi-Wound Chart [id number] 202 [id number]#1.00 TIFF Normal [facility] Nursing Assessment - Woundon 02-24-2023 Nursing Assessment - Wound [id number]#1.00 TIFF [facility] Nursing Note - Woundon 02-24 Nursing Note - Wound [id number]#1.00 TIFF Normal [facility] Physician Orderon 02-24-2023 Physician Order [id number] 202 [id number]#1.00 TIFF [facility] Procedure - Woundon 02-25-20 Procedure - Wound [id number] 202 [id number]#1.00 TIFF [facility] Progress Note - Woundon 02-13 Progress Note - Wound [id number]#1.00 TIFF [facility] Retail - Clinical Noteon Retail - Clinical Note [id number]#1.00T IFF [facility] US venous mapping BI loweron 02-19-2023 [place] [address] Ultrasound Report Signed Patient: Evon Corcoran MR#: [id number] : 1950 Acct:[id number] Age/Sex: 72 / F ADM Date: 02/18/23 Loc: Room: Type: [facility] Attending Dr: Miguel Membreno MD [...] Miguel Membreno M.D.02/19/2023 1:30 PM Dictation Location: [place] [address] Tech: Isabell Duarte Transcribed By: RICH 02/19/23 1330 Dictated By: Miguel Membreno MD 02/19/23 1327 Signed By: 02/19/23 1330 [facility] Blood Urea Nitrogenon 2022 Urea nitrogen [Mass/Vol] 25 mg/dL Normal 10-07 [facility] Comment on above: Performed By: #### C REMAY BUN #### [facility] [address] [place] [address] [place] Creatinineon 02-18-2023 Creatinine [Mass/Vol] 1.18 mg/dL Normal 0.60-1.20 [facility] Comment on above: Performed By: #### C NIMO BUN #### [facility] [address] [place] [address] [place] Creatinine Clr Calc Pharmacy 49.07 [facility] Comment on above: Result Comment: PERF ORMED BY: [place] [address] PATHOLOGIST TOXICS PROGRAM OFFICER AIRAM ROMEO M.D. Performed By: #### C REMAY BUN #### [facility] [address] [place] [address] [place] GFR/1.73 sq M.predicted MDRD (S/P/Bld) [Vol rate/Area] 48.770 mL/min/{1.73_m2} [facility] Comment on above: Performed By: #### C REAT, BUN #### [address] Creatinine [Mass/volume] in Serum or PlasmaOrdered By: Miguel Membreno on 02-18-2023 Creatinine [Mass/Vol] 1.18 mg/dL 0.60-1.20 [facility] Lab Reportson 02-18-2023 Lab Reports [id number] 204 [id number]#1.00T IFF Normal [facility] No Panel InformationOrdered By: Miguel Membreno on 02-18-2023 Estimated GFR (CKD-EPI) 48.770 mL/Min [facility] Creatinine Clearance (Chem 49.07 [facility] Operative Reporton Operative Report [id number] 204 [id number]#1.00T IFF Normal [facility] Retail - Clinical Noteon Retail - Clinical Note [id number]#1.00T IFF [facility] Retail - Clinical Note [id number]#1.00T IFF [facility] Urea nitrogen [Mass/volume] in Serum or PlasmaOrdered By: Miguel Membreno on 02-18-2023 Urea nitrogen [Mass/Vol] 25 mg/dL 10-07 [facility] Insurance Correspondenceon 1 04-20-2022 Insurance Correspondence [id number]#1.00 TIFF [facility] Physician Orderon 02-17-2023 Physician Order [id number] 202 [id number]#1.00 TIFF Normal [facility] CHEMISTRYOrdered By: Lab ROP User on 02-16-2023 Glucose [Mass/Vol] 311 mg/dL High 55 - 99 mg/dL [facility] C POC Subsection POC Device SN [id number] Invalid Interpretation Code [facility] POC Subsection POC Username RONI CHOWDHURY Invalid Interpretation Code [facility] POC Subsection Sodium [Moles/Vol] [id number] mmol/L Invalid Interpretation Code [facility] POC Subsection Capillary Glucose POCon Glucose [Mass/Vol] 311 mg/dL High 55-99 [facility] Comment on above: Performed By: #### 2 [id number] #### [facility] Laboratory [address] [place] [address] Consent for Treatmenton Consent for Treatment [id number]#1.00T IFF Normal [facility] Consent for Treatment [id number]#1.00T IFF Normal [facility] Main OR Preoperative Recordo n 02-16-2023 Main OR Preoperative Record Holding Area Document Type FTPM Summary Primary Physician: Gary Cerda MD Finalized Date/Time: 02/16/23 13:36:16 Pt. Name: EVON CORCORAN Get Hernandez/Sex: 1950 Female Med Rec #: [id number] Physician: Gary Cerda MD Financial #: [id number] Pt. Type: P Room/Bed: / Admit/Disch: 02/16/23 [...] 13:19 Bertha Chowdhury RN 02/16/23 13:36 Normal [facility] Multi-Wound Charton 02-17-20 Multi-Wound Chart [id number] 201 [id number]#1.00 TIFF Normal [facility] Nursing Assessment - Woundon 02-16-2023 Nursing Assessment - Wound [id number]#1.00 TIFF [facility] Nursing Note - Woundon 02-16 Nursing Note - Wound [id number]#1.00 TIFF [facility] Patient Correspondenceon Patient Correspondence [id number]#1.00T IFF [facility] Consent for Procedure/Surger yon 02-10-2023 Consent for Procedure/Surgery [id number]#1.00 TIFF [facility] Consent for Treatmenton 01-15 Consent for Treatment [id number]#1.00T IFF [facility] Multi-Wound Charton 02-11-20 Multi-Wound Chart [id number] 102 [id number]#1.00 TIFF [facility] Nursing Assessment - Woundon 02-10-2023 Nursing Assessment - Wound [id number]#1.00 [facility] - [facility] 02-10 Nursing Note - Wound [id number]#1.00 TIFF [facility] Physician Orderon 02-10-2023 Physician Order [id number] 102 [id number]#1.00 [facility] Procedure - [facility]oundon 02-11-20 Procedure - Wound [id number] [id number] [facility] Progress Note - Woundon 01-15 Progress Note - Wound [id number]#1.00 [facility] Correspondenceon 04-05-2022 Insurance Correspondence [id number]#1.00 [facility] 04-04-2022 Insurance Correspondence [id number]#1.00 [facility] Patient [facility] January 29, 2023 EVON CORCORAN [address] [facility] [facility] [address] [place] [address] EVON CORCORAN 1950 We are pleased that [...] in the following areas: ? Assign a Telecommunications Manager who will work with you to help [...] phone contact on 02/19/2023 at 08:00 AM. [facility] Telecommunications Manager [phone] opt. #2 [facility] Consent for Procedure/Surger yon 01-27-2023 Consent for Procedure/Surgery [id number]#1.00 TIFF [facility] Consent for Treatmenton 01-14 Consent for Treatment [id number]#1.00T IFF [facility] Multi-Wound Charton 01-28-20 Multi-Wound Chart [id number] 102 [id number]#1.00 TIFF [facility] Nursing Assessment - Woundon 01-27-2023 Nursing Assessment - Wound [id number]#1.00 TIFF [facility] Nursing Note - Woundon 01-27 Nursing Note - Wound [id number]#1.00 TIFF [facility] Physician Orderon 01-27-2023 Physician Order [id number] 102 [id number]#1.00 TIFF [facility] Procedure - Woundon 01-28-20 Procedure - Wound [id number] 102 [id number]#1.00 TIFF [facility] Progress Note - Woundon 01-14 Progress Note - Wound [id number]#1.00 TIFF [facility] Ambulatory Visit Summaryon 03-28-2022 Ambulatory Visit [...] With: Denton Mares DPM Where: [facility] Thursday 9:45 AM EST With: Where: [facility] Thursday 8:45 AM EST With: Gary Cerda MD Where: [facility] 2022 8:00 AM EST With: Linda Solorio CNP Where: [facility] Invalid Interpretation Code [address], [place] [address]- \.br\ Thursday 8:00 AM EST \.br\ With:\.br\ Where: [facility] Medicine Office/Clini c Noteon 01-26-2023 Family Medicine [...] of clutter to prevent tripping and/or falling. [place] Advance Directives reviewed. Documents remain at home, [...] Labs were ordered, to be completed with [facility]. Mammogram and DEXA scan up to date, [...] as directed. 3. Long-term insulin use (Z79.4: manager intermediate (current) use of insulin) Patient voices understanding with proper use of insulin dosage. Follows up with labs, DM supplies and dosage adjustments as needed. Reviewed available sites that can be used to administer Insulin, patient voices understanding. Will continue as directed. 4. Chronic renal impairment, stage 3a (N18.31: Chronic kidney disease, stage 3a) Follows with Linux Systems Administrator, Dr. Núñez. Encouraged with avoiding NSAID's. Healthy Kidney Nutritional education material provided. Goals to keep blood sugars and blood pressure under better control to reduce cardiovascular risk factors. Medications and blood work monitored with visits. Continues taking statin medication daily. 5. On statin therapy (Z79.899: Other terminal carman (current) drug therapy) Taking Atorvastatin daily, encouraged to eat a diet that is low in saturated fats. Stressed importance of loosing weight as being overweight does produce more lipids. Risks may also increase with a family history of hyperlipidemia. Encouraged with healthy dietary choices to reduce risk factors associated with CVA. Will continue to follow up with labs as directed. 6. Anticoagulated (Z79.01: skilled nursing (current) use of anticoagulants) Taking Xarelto and [...] of Hepatitis C for people born between 7515-8465. Hand (more content not included)... Normal [facility] Comment on above: Result Comment: Elec tronically Signed By: Christopher WELLS DO, FAAFP\.br\Date and Time Signed: 01/26/23 17:15 EST\.br\Electronically Co-Signed By: Lesly West LPN\.br\Date and Time Co-Signed: 01/26/23 09:21 EST Nursing Assessment - Woundon 01-26-2023 Nursing Assessment - Wound [id number]#2.00 TIFF [facility] Nursing Note - Woundon 01-26 Nursing Note - Wound [id number]#2.00 TIFF [facility] Patient Educationon 01-27-20 Patient Education Caregiving [...] Keep items that you use often in gtqa-rz-cobqe places. Lower the shelves around your home [...] the way. ? Do not use floor iranian or wax that makes floors slippery. What [...] Control and Prevention, [place]: www.cdc.gov ? National [place] on Aging: www.[place].nih.gov Contact a doctor if: [...] provider. Document Revised: 12/02/2021 Document Reviewed: 10/03/2020 [employer] Patient Education ? 2022 [employer] Endocrinology Diabetes Melli (more content not included)... Normal [facility] Screenson 01-26-2023 Screens [id number] 021 [id number]#1.00TI FF Normal [facility] Multi-Wound Charton 01-24-20 23 Multi-Wound Chart [id number] 105 [id number]#1.00 TIFF Normal [facility] Physician Orderon 01-23-2023 Physician Order [id number] 105 [id number]#1.00 TIFF Normal [facility] Consent for Treatmenton Consent for Treatment [id number]#1.00T IFF Normal [facility] Consent for Procedure/Surger yon 01-14-2023 Consent for Procedure/Surgery [id number]#1.00 TIFF Normal [facility] Consent for Procedure/Surgery [id number]#1.00 TIFF Normal [facility] Nursing Assessment - Woundon 01-14-2023 Nursing Assessment - Wound [id number]#1.00 TIFF Normal [facility] Nursing Note - Woundon 01-14 Nursing Note - Wound [id number]#2.00 TIFF [facility] CHEMISTRYOrdered By: Cynthia Serrano se on 01-13-2023 HbA1c (Bld) [Mass fraction] 11.5 % High <=5.9% [facility] [employer] Consent for Treatmenton 12-16 Consent for Treatment [id number]#1.00T IFF Normal [facility] Consent to Photographon 12-16 Consent to Photograph [id number]#1.00T IFF Normal [facility] Correspondence - Woundon Correspondence - Wound [id number]#1.00T IFF Normal [facility] Correspondence - Wound [id number]#1.00T IFF Normal [facility] Correspondence - Wound [id number]#1.00T IFF Normal [facility] NueO7njo 01-13-2023 HbA1c (Bld) [Mass fraction] 11.5 % High <=5.9 [facility] Comment on above: Performed By: #### 2 [id number], [id number] #### [facility] Laboratory [address] [place] [address] Multi-Wound Charton 01-14-20 Multi-Wound Chart [id number] 002 [id number]#1.00 TIFF Normal [facility] Nursing Assessment - Woundon 01-13-2023 Nursing Assessment - Wound [id number]#1.00 TIFF Normal [facility] Outside Recordson 01-13-2023 Outside Records [id number] 231 [id number]#1.00T IFF Normal [facility] Patient Correspondenceon Patient Correspondence [id number]#1.00 TIFF Normal [facility] Physician Orderon 01-13-2023 Physician Order [id number] 002 [id number]#1.00 TIFF Normal [facility] Procedure - Woundon 01-14-20 Procedure - Wound [id number] 002 [id number]#1.00 TIFF Normal [facility] Progress Note - Woundon 12-16 Progress Note - Wound [id number]#1.00 TIFF Normal [facility] Insurance Correspondenceon Insurance Correspondence [id number]#1.0 0TIFF Normal [facility] Radiology Outside Office Student Affairs Dean yon 01-07-2023 Radiology Outside Office Copy [id number]#1.00 TIFF Normal [facility] Consent for Treatmenton 12-15 Consent for Treatment [id number]#1.00T IFF Normal [facility] Consultation Noteon 01-07-20 Consultation Note Patient: [...] red blood per rectum) / SNOMED CT 392156829 / Confirmed Breast cancer screening by mammogram / SNOMED CT 265814809 / Confirmed CAD in 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 / SNOMED CT 303644565 / Confirmed Diabetes / SNOMED CT 620989325 / Confirmed Diarrhea / SNOMED CT 594512229 / Confirmed Enthesopathy of left hip region / SNOMED CT 77142061 / Confirmed Familial hypercholesteremia / SNOMED CT 9700219287 / Confirmed Hemorrhoids / SNOMED CT 944390031 / Confirmed History of colon polyps / SNOMED CT 1353864504 / Confirmed History of DVT in adulthood / SNOMED CT 4485137068 / Confirmed HTN - Hypertension / SNOMED CT 7865217205 / Confirmed Hypertensive heart and chronic kidney disease without heart failure, with stage 1 through stage 4 chronic kidney disease, or unspecified chronic kidney disease / SNOMED CT 9252063084 / Confirmed noted in 12/10/2021 Nephrology Consult Note page 3. added per outpatient CDI policy. Long-term insulin use / SNOMED CT 8800256107 / Confirmed Current Medication List includes Tresiba. added per outpatient CDI policy. Lumbar disc herniation / SNOMED CT 775515026 / Confirmed Lumbar stenosis / SNOMED CT 99489390 / Confirmed Mild nonproliferative diabetic retinopathy of both eyes / SNOMED CT 933568795 / Confirmed noted in 08/21/2019 Diabetic Eye Exam. added per outpatient CDI policy. Morbid obesity / SNOMED CT 703519213 / Confirmed Non-smoker / SNOMED CT 21722729 / Confirmed Primary ovarian failure / SNOMED CT 098056378 / Confirmed Sleep apnea / SNOMED CT 657814808 / Confirmed Type 2 diabetes mellitus with hypercholesterolemia / SNOMED CT 450748968 / Confirmed linked DM with hypercholesterolemia per outpatient CDI policy. Type 2 diabetes mellitus with stage 3 chronic kidney disease / SNOMED CT 300243940 / Confirmed linked DM with CKD (more content not included)... Normal [facility] Comment on above: Result Comment: Elec tronically Signed By: Prashant PIMENTEL, Gary Damon.br\Date and Time Signed: 01/06/23 09:13 EDT HIPAA Forms Officeon 023 HIPAA Forms Office [id number]#1.00 TIFF Normal [facility] Legal Correspondence Officeo n 01-06-2023 Legal Correspondence Office [id number]#1.00 TIFF [facility] Legal Correspondence Office [id number]#1.00 TIFF Normal [facility] Office/Clinic Note-Physician on 01-06-2023 Office/Clinic Note-Physician [id number]#1.00 TIFF Normal [facility] Patient Correspondenceon Patient Correspondence [id number]#1.00 TIFF Normal [facility] Patient Correspondence [id number]#1.00 TIFF Normal [facility] Patient Correspondence [id number]#1.00 TIFF Normal [facility] Patient Correspondence [id number]#1.00 TIFF Normal [facility] Patient Correspondence [id number]#1.00 TIFF Normal [facility] Patient History Officeon Patient History Office [id number]#1.00 TIFF Normal [facility] Radiology Outside Office Student Affairs Dean yon 01-06-2023 Radiology Outside Office Copy [id number]#1.00 TIFF Normal [facility] Consent for Treatmenton 12-14 Consent for Treatment [id number]#1.00T IFF Normal [facility] MRI Pelvis (Bony) w/o contra ston [...] MD Transcribed by: KATEY Technologist: NUBIA Normal [facility] RAD - MRI Screening Formon 1 RAD - MRI Screening Form [id number]#1.00 TIFF Normal [facility] Physician Orderon 12-24-2022 Physician Order [id number]#1.00T IFF Normal [facility] Physician Order [id number]#1.00T IFF Normal [facility] Outside Records Officeon Outside Records Office [id number]#1.00 TIFF Normal [facility] Referrals Officeon 3 Referrals Office [id number]#1.00 TIFF Normal [facility] Consultation Noteon 12-23-19 23 Consultation Note [id number]#1.00T IFF Normal [facility] Physician Orderon 12-22-2022 Physician Order [id number]#1.00 TIFF Normal [facility] Ambulatory Visit Summaryon 1 Ambulatory Visit Summary NILOYOKASTALAW Kennedy :1950 Visit Date:12/18/2022 Ambulatory Visit Instructions Your Diagnosis Enthesopathy of left hip region Hypertensive heart and chronic kidney disease without heart failure, with stage 1 through stage 4 chronic kidney disease, or unspecified chronic kidney disease Long-term insulin use BMI 36.0-36.9,adult Morbid obesity Chronic renal impairment, stage 3a CAD in [place] artery Type 2 diabetes mellitus with hypercholesterolemia [...] Appointments Thursday 8:00 AM EST With: Where: [facility] Normal [address] [address]- \.br\ You Need to Schedule the Following Appointments\.br\ Follow Up with Christopher WELLS DO, FAAFP, FAM, PED When: In 3 months\.br\ Where:\.br\ [address], [address]br\ [place] [address]-\.br\ \.br\ Medications\.br\ What How Much When Why Instructions\.br\ New doxycycline (doxycycline hyclate 100 mg Cap) 1 Capsules By Mouth 2 times a day Venous stasis ulcer Refills: 1 Pickup at [id number]\.br\ Unchanged amlodipine (amLODIPine 5 mg Tab) 1 [...] Mouth Every day\.br\ Pharmacy Information\.br\ [id number]: [address] [place], [place] [id number] [phone]\.br\ Medications and Immunizations Administered\.br\ Not Given\.br\ influenza virus vaccine, inactivated, Patient Refuses\.br\ Allergies\.br\ Aldactazide (Hives)\.br\ Cardura (Unknown)\.br\ Diovan (Unknown)\.br\ Glucophage\.br\ Hytrin\.br\ Prinivil\.br\ Zestril (Diarrhea)\.br\ hydrochlorothiazi de-lisinopril (Diarrhea)\.br\ Problems\.br\ Ongoing - Any problem that you are currently receiving treatment for.\.br\ BRBPR (bright red blood per rectum)\.br\ Breast cancer screening by mammogram\.br\ CAD in [place] artery\.br\ Change in bowel habits\.br\ Chronic renal [...] home:\.br\ Medicines\.br\ ? \.br\ Take or apply feik-skt-uaopqea and prescription medicines only as told by [...] cannot use soap and water, use hand checkroom attendant.\.br\ ? \.br\ Change your bandage as told [...] for help if you feel david [facility] Family Medicine Office/Clini c Noteon [...] ER daily. 3. Long-term insulin use (Z79.4: manager intermediate (current) use of insulin) Tresiba 50 units [...] in 6 (more content not included)... Normal [facility] Comment on above: Result Comment: Elec [...] at home: Medicines ? Take or apply drat-mdc-szkfqyx and prescription medicines only as told by [...] cannot use soap and water, use hand checkroom attendant. ? Change your bandage as told by [...] day for signs of infection. ? Take sxjx-ayd-lpkymwo and prescription medicines only as told by your doctor. ? Keep all follow-up visits as told by your doctor. This is important. This information is not intended to replace advice given to you by your health care provider. Make sure you discuss any questions you have with your health care provider. Document Revised: 12/26/2021 Document Reviewed: 12/26/2021 [employer] Patient Education ? 2022 [employer] Normal [facility] Consultation Noteon 12-16-19 Consultation Note [id number]#1.00C D:127 Normal [facility] MRI Spine Lumbar w/o Contras ton [...] by: KATEY Technologist: NUBIA Technical Comments None [facility] Consent for Treatmenton 11-15 Consent for Treatment [id number]#1.00C D:127 Normal [facility] RAD - MRI Screening Formon 0 12-08-2022 RAD - MRI Screening Form [id number]#1.00 CD:127 Normal [facility] Physician Orderon 11-26-2022 Physician Order [id number]#1.00CD :127 Normal [facility] Physician Order [id number]#1.00CD :127 Normal [facility] BD Bone Density DEXAon 11-25 BD [...] MD Transcribed by: KATEY Technologist: TRISTAN Gonzalez [facility] MA Mamm Screen w/CAD if perf [...] very important to your health. The current [place] [employer] and National Comprehensive Cancer [...] 2-Benign finding Recommendation: Normal interval follow-up Normal [facility] Consent for Treatmenton 11-14 Consent for Treatment [id number]#1.00C D:127 Normal [facility] Consultation Noteon 11-24-19 Consultation Note [id number]#1.00CD :127 Normal [facility] Consultation Noteon 11-14-19 Consultation Note [id number]#1.00C D:127 Normal [facility] Family Medicine Office/Clini c Noteon 11-06-2022 [...] and some weakness, I take WC to [place] so I walk and do Wheel Chair. Pain stays in the hip. After walking approximately 10 minutes at [place] patient needs to get into wheelchair secondary to the pain in her left hip. Patient reports no poor color no radiation of pain into left thigh and nor leg nor foot. Diabetes is now managed per Dr. Ruggiero, her last A1c at Dr. Ruggiero's office was 8.9 and the 1 prior to that was 13. Dr. Oliveira is her coroner technician and she believes she sees him next [...] We will refer to orthopedics here at [facility]. Physical therapy [facility]. Patient defers x-rays and well allow access orthopedics to perform at time of evaluation. Discussed possibility of bursitis and possible injection under fluoroscopy via orthopedics Ordered: [facility] [place] Ambulatory Referral [facility] Outpatient Physical Therapy Evaluate Patient, Develop a Plan of Care, & Implement Plan (more content not included)... Normal [facility] Comment on above: Result Comment: Elec [...] these instructions at home: Medicines ? Take hdue-rhm-aemqies and prescription medicines only as told by [...] Reviewed: 02/25/2022 [employer] Patient Education ? 2022 [employer] Normal [facility] Physician Referralon 023 Physician Referral [id number]#1.00 CD:127 Normal [facility] US arterial duplex LE on 0 11-04-2022 US arterial duplex [address] [place] [address] Ultrasound Report Signed Patient: Evon Corcoran MR#: [id number] : 1950 Acct:[id number] Age/Sex: 72 / F ADM Date: 11/04/22 Loc: [facility] Room: Type: REG CLI Attending Dr: Renetta Barahona TAX EVALUATORVickiC Ordering Provider: Renetta Barahona APRN Date of [...] Miguel Membreno M.D.11/04/2022 1:09 PM Dictation Location: [place] [address] Tech: Adina Zuñiga Transcribed By: RICH 11/04/22 1309 Dictated By: Miguel Membreno MD 11/04/22 1307 Signed By: 11/04/22 1309 [facility] US ankle/arm indiceson 11-03 US ankle/arm indices [facility] Main [address] [address] Ultrasound Report Signed Patient: Evon Corcoran MR#: [id number] : 1950 Acct:[id number] Age/Sex: 72 / F ADM Date: 11/03/22 Loc: [facility] Room: Type: REG CLI Attending Dr: Miguel [...] Miguel Membreno M.D.11/03/2022 10:26 AM Dictation Location: [place] [address] Tech: Melita Pike Transcribed By: RICH 11/03/22 1026 Dictated By: Miguel Membreno MD 11/03/22 1024 Signed By: 11/03/22 1026 [facility] CHEMISTRYOrdered By: SYSTEM SYSTEM on 10-31-2022 Albumin [...] rate/Area] 43 mL/min/1.73 m2 Low >=59mL/min/1.73 m2 [facility] Chem S Glucose [Mass/Vol] 316 mg/dL High 55 - 199 mg/dL [facility] Remisol Phosphate [Mass/Vol] 3.8 mg/dL Normal 1.9 - 4.6 mg/dL [facility] Remisol Potassium [Moles/Vol] 4.2 mmol/L Normal 3.5 - 5.3 mmol/L [facility] Remisol Sodium [Moles/Vol] 138 mmol/L Normal 135 - 145 mmol/L [facility] Remisol Urea nitrogen [Mass/Vol] 28 mg/dL High 5 - 21 mg/dL [facility] Remisol Urea nitrogen/Creatinine [Mass ratio] 22 mg/mg High 10 - 20 [facility] Remisol CHEMISTRYOrdered By: Jeniffer Rosas on 10-31-2022 Albumin Elph (U) [Mass fraction] 8.4 mg/dL Invalid Interpretation Code [facility] Remisol Creatinine (U) [Mass/Vol] 132.6 mg/dL Invalid Interpretation Code [facility] Remisol U Prot/Creat Ratio 63.30 mg/gm Cr Normal 0.00 - 200.00 mg/gm Cr [facility] Remisol Consent for Treatmenton 10-14 Consent for Treatment [id number]#1.00C D:127 Normal [facility] Physician Orderon 10-31-2022 Physician Order [id number]#1.00 CD:127 Normal [facility] Renal Panelon 10-31-2022 Albumin [Mass/Vol] 3.4 g/dL Normal 3.3-5.0 [facility] Comment on above: Performed By: #### 1 [id number], [id number] #### [facility] Laboratory [address] [place] [address] Anion gap [Moles/Vol] 11 mmol/L Normal 6-16 [facility] Comment on above: Performed By: #### 1 [id number], [id number] #### [facility] [address] [place] [address] Calcium [Mass/Vol] 8.4 mg/dL Low 8.9-11.1 [facility] Comment on above: Performed By: #### 1 [id number], [id number] #### [facility] [address] [place] [address] Chloride [Moles/Vol] 104 mmol/L Normal 101-111 [facility] Comment on above: Performed By: #### 1 [id number], [id number] #### [facility] [address] [place] [address] CO2 [Moles/Vol] 27 mmol/L Normal 21-31 [facility] Comment on above: Performed By: #### 1 [id number], [id number] #### [facility] [address] [place] [address] Creatinine [Mass/Vol] 1.3 mg/dL Normal 0.5-1.3 [facility] Comment on above: Performed By: #### 1 [id number], [id number] #### [facility] [address] [place] [address] Glucose [Mass/Vol] 316 mg/dL High 55-199 [facility] Comment on above: Result Comment: If t his glucose result represents a fasting glucose, interpretation should refer to the following reference range: 55-99 mg/dL Performed By: #### 1 [id number], [id number] #### [facility] [address] [place] [address] Phosphate [Mass/Vol] 3.8 mg/dL Normal 1.9-4.6 [facility] Comment on above: Performed By: #### 1 [id number], [id number] #### [facility] [address] [place] [address] Potassium [Moles/Vol] 4.2 mmol/L Normal 3.5-5.3 [facility] Comment on above: Performed By: #### 1 [id number], [id number] #### [facility] [address] [place] [address] Sodium [Moles/Vol] 138 mmol/L Normal 135-145 [facility] Comment on above: Performed By: #### 1 [id number], [id number] #### [facility] [address] [place] [address] Urea nitrogen [Mass/Vol] 28 mg/dL High 5-21 [facility] Comment on above: Performed By: #### 1 [id number], [id number] #### [facility] [address] [place] [address] Urea nitrogen/Creatinine [Mass ratio] 22 No Units High 10-20 [facility] Comment on above: Performed By: #### 1 [id number], [id number] #### [facility] [address] [place] [address] U Protein/Creat Ratioon 10-14 Albumin Elph (U) [Mass fraction] 8.4 mg/dL Invalid Interpretation Code [facility] Comment on above: Result Comment: The reference range and other method performance specifications have not been established for this test; results should be integrated into the clinical context for interpretation. Performed By: #### 1 [id number], [id number] ####[facility] [address] [place] [address] Creatinine (U) [Mass/Vol] 132.6 mg/dL Invalid Interpretation Code [facility] Comment on above: Result Comment: The reference range and other method performance specifications have not been established for this test; results should be integrated into the clinical context for interpretation. Performed By: #### 1 [id number], [id number] ####[facility] [address] [place] [address] U Prot/Creat Ratio 63.30 mg/gm Cr Normal .00-200.00 [facility] Comment on above: Performed By: #### 1 [id number], [id number] ####[facility] [address] [place] [address] URINALYSISOrdered By: Rosa Chacon on 10-31-2022 Bacteria [...] AM) Normal Negative [facility] UA Auto SS [place].plasma/Lith ium.RBC (Bld) [Mass ratio] 0-3 /HPF Normal [...] [facility] UA Auto SS Urobilinogen Qn (U) 0.7130568 {Donell'U}/dL Normal 0.0 - 1.0 EU/dL [facility] UA Auto SS WBC Auto Ql (U) 1+ *ABN* (10/31/22 7:33 AM) Invalid Interpretation Code Negative [facility] UA Auto SS WBC LM.HPF (Urine sed) [#/Area] 6-15 /HPF Invalid Interpretation Code 0-5/HPF [facility] UA Auto SS Urinalysison 10-31-2022 Bacteria LM Ql (Urine sed) 1+ /HPF Abnormal Trace [facility] Comment on above: Performed By: #### 1 [id number], [id number] ####[facility] [address] [place] [address] Bilirubin Ql (U) Negative Normal Negative [facility] Comment on above: Performed By: #### 1 [id number], [id number] ####[facility] [address] [place] [address] Clarity (U) CLEAR Normal Clear [facility] Comment on above: Performed By: #### 1 [id number], [id number] ####[address] [address] Color (U) YELLOW Normal Yellow [facility] Comment on above: Performed By: #### 1 [id number], [id number] ####[address] [address] Epithelial cells.squamous LM.HPF (Urine sed) [#/Area] 0-2 Normal 0-2 [facility] Comment on above: Performed By: #### 1 [id number], 67417996 ####[address] [address] Glucose Test strip (U) [Mass/Vol] 2+ Abnormal Negative [facility] Comment on above: Performed By: #### 1 [id number], [id number] ####[address] [address] Hemoglobin Ql (U) Negative Normal Negative [facility] Comment on above: Performed By: #### 1 [id number], 76011302 ####[address] [address] Ketones (U) [Mass/Vol] Negative Normal Negative [facility] Comment on above: Performed By: #### 1 [id number], 62932732 ####[address] [address] [place].plasma/Lith ium.RBC (Bld) [Mass ratio] 0-3 Normal 0-3 [facility] Comment on above: Performed By: #### 1 [id number], [id number] ####[facility] [place] [address] Nitrite Ql (U) Negative Normal Negative [facility] Comment on above: Performed By: #### 1 [id number], [id number] ####[address] [address] pH (U) 6.0 [pH] Invalid Interpretation Code 5.0-9.0 [facility] Comment on above: Performed By: #### 1 [id number], 98470982 ####[address] [address] Protein (U) [Mass/Vol] Negative Normal Negative [facility] Comment on above: Performed By: #### 1 [id number], 97609946 ####[address] [address] Specific gravity (U) [Rel density] 1.025 Invalid Interpretation Code 1.005-1.030 [facility] Comment on above: Performed By: #### 1 [id number], [id number] ####[address] [address] Type of Urine collection method Clean Catch Normal [facility] Comment on above: Performed By: #### 1 [id number], 27684124 ####[address] [address] Urobilinogen Qn (U) 0.2 {Donell'U}/dL Normal 0.0-1.0 [facility] Comment on above: Performed By: #### 1 [id number], 30490611 ####[address] [address] WBC Auto Ql (U) 1+ Abnormal Negative [facility] Comment on above: Performed By: #### 1 [id number], 73482727 ####[facility] [address] [place] [address] WBC LM.HPF (Urine sed) [#/Area] 6-15 Abnormal 0-5 [facility] Comment on above: Performed By: #### 1 [id number], 53366644 ####[facility] [address] [place] [address] eGFRon 10-31-2022 GFR/1.73 sq M.predicted among non-blacks MDRD (S/P/Bld) [Vol rate/Area] 43 mL/min/1.73 m2 Low >=59 [facility] Comment on above: Order Comment: Order added by Discern Expert. Result Comment: Senior Vice President & General Counsel jin kidney disease could be indicated at eGFR's of less than 60 mL/min/1.73m2. Kidney failure is indicated at less than 15 mL/min/1.73m2. Performed By: #### 1 [id number], 11765401 #### [facility] [address] [place] [address] RAD - Ultrasound Reporton RAD - Ultrasound Report [id number]#1.00C D:127 Normal [facility] Retail - Clinical Noteon Retail - Clinical Note [id number]#1.00C D:127 Normal [facility] VASC LAB Carotid Artery Dupl ex Ultrasounon 09-17-2022 VASC LAB Carotid Artery Duplex Ultrasoun [address], [address] [place] [address] Vascular Lab Report Carotid Artery Duplex Ultrasound Patient Name: EVON Mckeon Physician: [id number] Fariha Guidry MD, [facility] Study Date: 09/17/2022 Referring FARIHA GUIDRY Physician: MRN/PID: [id number] PCP: Christopher Wells DO Accession/Order#: [id number] CC Report to: Date of : 1950 Technologist: PRAVEENA Gender: F Technologist 2: Admission Status: Outpatient Location Performed: [facility] Diagnosis/ICD: Q52-Ucvofnuiy and giddiness; I73.9-Peripheral vascular disease, unspecified Indication: CAD, PTCA, High Risk Medication Use, Vascular Disease, Diabetes, HTN, Hyperlipidemia, CKD-Stage III, DVT, MORALES, Obesity Procedure/CPT: 26558 Cerebrovascular Carotid Duplex scan complete-71279 CONCLUSIONS: Right Carotid: Findings are consistent with [...] cm/s Right Left ICA/CCA Ratio 1.4 2.0 [address]6025 Fariha Guidry MD, FACC Final Normal [facility] VASC LAB Carotid Artery Dupl ex Ultrasoundon 09-17-2022 US.doppler Carotid arteries -[facility]-[address] fel[address] DO Work [...] (bright red blood per rectum) CAD in [facility] artery Change in bowel habits Chronic renal impairment, stage 3a Claudication of both lower extremities Colon polyp Diarrhea Familial hypercholesteremia Hemorrhoids History of colon polyps History of DVT (more content not included)... Normal [facility] Comment on above: Result Comment: Elec [...] Bulgur wheat. Millet. Quinoa. Bran muffins. Popcorn. [place] wafer crackers. Meats and other proteins [place] beans, kidney beans, and chase beans. Soybeans. [...] Cream cheese. Sour cream. Fats and oils [place]. Beverages Soft drinks. Other foods Cakes and [...] Document Revised: (more content not included)... Normal [facility] Medication Refillon 08-23-19 Medication Refill [id number]#1.00C D:127 Normal [facility] CBC w/Indiceson 08-01-2022 Erythrocyte distribution width (RBC) [Ratio] 14.0 % Normal 10.9-14.2 [facility] Comment on above: Performed By: #### 2 [id number], [id number] #### [facility] [address] [place] [address] Hematocrit (Bld) [Volume fraction] 39.9 % Normal 34.0-46.0 [facility] Comment on above: Performed By: #### 2 483195, 2141810 #### [facility] [address] [place] [address] Hemoglobin (Bld) [Mass/Vol] 12.7 g/dL Normal 12.0-16.0 [facility] Comment on above: Performed By: #### 2 985607, 2266903 #### [facility] [address] [place] [address] MCH (RBC) [Entitic mass] 27.9 pg Normal 27.0-34.0 [facility] Comment on above: Performed By: #### 2 162968, 2926375 #### [facility] [address] [place] [address] MCHC (RBC) [Mass/Vol] 31.8 g/dL Normal 31.4-36.0 [facility] Comment on above: Performed By: #### 2 [id number], 4931981 #### [facility] Laboratory [address] [place] [address] MCV (RBC) [Entitic vol] 87.6 fL Normal 80.0-100.0 [facility] Comment on above: Performed By: #### 2 071626, 0753010 #### [facility] [address] [place] [address] Platelet mean volume (Bld) [Entitic vol] 10.5 fL Normal 6.4-10.8 [facility] Comment on above: Performed By: #### 2 741840, 3099791 #### [facility] [address] [place] [address] Platelets (Bld) [#/Vol] 227.0 E9/L Normal 150.0-500.0 [facility] Comment on above: Performed By: #### 2 [id number], 1762111 #### [facility] [address] [place] [address] RBC (Bld) [#/Vol] 4.6 E12/L Normal 4.3-5.9 [facility] Comment on above: Performed By: #### 2 [id number], [id number] #### [facility] [address] [place] [address] WBC corrected for nucl RBC Auto (Bld) [#/Vol] 7.3 E9/L Normal 4.0-11.0 [facility] Comment on above: Performed By: #### 2 [id number], [id number] #### [facility] [address] [place] [address] Consent for Treatmenton 07-14 Consent for Treatment [id number] D:127 Normal [facility] Lipid Panelon 08-01-2022 Cholesterol [Mass/Vol] 128 mg/dL Normal 120-200 [facility] Comment on above: Performed By: #### 2 [id number], [id number] #### [facility] [address] [place] [address] Cholesterol in HDL [Mass/Vol] 47 mg/dL Invalid Interpretation Code [facility] Comment on above: Result Comment: HDL > or equal to 60 mg/dL: Low cardiovascular risk HDL < 40 mg/dL : High cardiovascular risk Performed By: #### 2 [id number], [id number] #### [facility] [address] [place] [address] Cholesterol in LDL [Mass/Vol] 59 mg/dL Normal <=129 [facility] Comment on above: Performed By: #### 2 [id number], [id number] #### [facility] [address] [place] [address] Cholesterol in VLDL [Mass/Vol] 27 mg/dL Normal 7-40 [facility] Comment on above: Performed By: #### 2 [id number], [id number] #### [facility] [address] [place] [address] Triglyceride [Mass/Vol] 133 mg/dL Normal <=149 [facility] Comment on above: Performed By: #### 2 [id number], [id number] #### [facility] [address] [place] [address] Physician Orderon 08-01-2022 Physician Order [id number] CD:127 Normal [facility] Retail - Clinical Noteon Retail - Clinical Note [id number] D:127 Normal [facility] MICRO OTHER TESTSOrdered By: Cynthia Case on 05-08-2022 Fecal WBC Lactoferrin Negative (05/08/22 9:00 AM) Normal Negative [facility] Man Sero Blood Urea Nitrogenon 2022 Urea nitrogen [Mass/Vol] 30 mg/dL High 12-06 [facility] Comment on above: Performed By: #### C REAT, BUN #### [facility] [address] [place] [id number] [place] Creatinineon 04-07-2022 Creatinine [Mass/Vol] 1.21 mg/dL High 0.44-1.03 [facility] Comment on above: Performed By: #### C REAT, BUN #### [facility] [address] [place] [address] [place] Creatinine Clr Calc Pharmacy 46.76 [facility] Comment on above: Result Comment: PERF ORMED BY: [place] [address] PATHOLOGIST TOXICS PROGRAM OFFICER AIRAM ROMEO M.D. Performed By: #### C REAT, BUN #### [facility] [address] Estimated GFR ( Laura 53 [facility] Comment on above: Result Comment: GFR estimated reference range: According to KDOQI guidelines, <60 ml/min/1.73m2 is sufficient to diagnose a patient with chronic kidney disease. Performed By: #### C REAT, BUN #### [facility] [address] [place] [address] [place] Estimated GFR (Non- Am 44 [facility] Comment on above: Performed By: #### C REAT, BUN #### [facility] [address] [place] [address] [place] Creatinine and Glomerular fi ltration rate.predicted panel (S/P/Bld)Ordered By: Miguel Membreno on 04-07-2022 Creatinine [Mass/Vol] 1.21 mg/dL 0.44-1.03 [facility] Estimated glomerular filtrat ion rate (GFR) non- AmericanOrdered By: Miguel Membreno on 04-07-2022 GFR/1.73 sq M.predicted among non-blacks MDRD (S/P/Bld) [Vol rate/Area] 44 mL/Min [facility] No Panel InformationOrdered By: Miguel Membreno on 04-07-2022 Estimated GFR () 53 mL/Min [facility] Comment on above: GFR estimated refere nce range: According to KDOQI guidelines, <60 ml/min/1.73m2 is sufficient to diagnose a patient with chronic kidney disease. Pharmacy Creatinine Clearance (Chem 46.76 [facility] Serum or plasma urea nitroge n measurement (mass/volume)Ordered By: Miguel Membreno on 04-07-2022 Urea nitrogen [Mass/Vol] 30 mg/dL 12-06 [facility] CHEMISTRYOrdered By: Genaro Rivera on 03-31-2022 Albumin Elph (U) [Mass fraction] mg/dL Invalid Interpretation Code [facility] Remisol Creatinine (U) [Mass/Vol] 95.7 mg/dL Invalid Interpretation Code [facility] Remisol U Prot/Creat Ratio [facility] Invalid Interpretation Code 0.00 - 200.00 [facility] Remisol CHEMISTRYOrdered By: SYSTEM SYSTEM on 03-31-2022 Albumin [Mass/Vol] 3.7 g/dL Normal 3.3 - 5.0 gm/dL [facility] Remisol Anion gap [Moles/Vol] 16 mmol/L Normal 6 - 16 mEq/L [facility] Remisol Calcium [Mass/Vol] 8.8 mg/dL Low 8.9 - 11.1 mg/dL [facility] Remisol Chloride [Moles/Vol] 103 mmol/L Normal 101 - 111 mmol/L [facility] Remisol CO2 [Moles/Vol] 25 mmol/L Normal 21 - 31 mmol/L [facility] Remisol Creatinine [Mass/Vol] 1.4 mg/dL High 0.5 - 1.3 mg/dL [facility] Remisol GFR/1.73 sq M.predicted among blacks MDRD (S/P/Bld) [Vol rate/Area] 45 mL/min/1.73 m2 Low >=59mL/min/1.73 m2 [facility] Chem S GFR/1.73 sq M.predicted among non-blacks MDRD (S/P/Bld) [Vol rate/Area] 37 mL/min/1.73 m2 Low >=59mL/min/1.73 m2 [facility] Chem S Glucose [Mass/Vol] 203 mg/dL High 55 - 199 mg/dL [facility] Remisol Magnesium [Mass/Vol] 2.1 mg/dL Normal 1.3 - 2.4 mg/dL [facility] Remisol Phosphate [Mass/Vol] 4.7 mg/dL High 1.9 - 4.6 mg/dL [facility] Remisol Potassium [Moles/Vol] 3.8 mmol/L Normal 3.5 - 5.3 mmol/L [facility] Sodium [Moles/Vol] 140 mmol/L Normal 135 - 145 mmol/L [facility] Urea nitrogen [Mass/Vol] 29 mg/dL High 5 - 21 mg/dL [facility] Urea nitrogen/Creatinine [Mass ratio] 21 mg/mg High 10 - 20 [facility] Remisol HEMATOLOGYOrdered By: Chai Reid on 03-31-2022 Hematocrit (Bld) [Volume fraction] 39.5 % Normal 34.0 - 46.0 % [facility] HemeAutoSS Hemoglobin (Bld) [Mass/Vol] 12.6 g/dL Normal 12.0 - 16.0 gm/dL [facility] HemeAutoSS Reference Laboratory Testing Ordered By: Angelica Casas on 03-31-2022 Test Code 333918 Invalid Interpretation Code [facility] SendOuts Test Code 167592 Invalid Interpretation Code [facility] SendOutsSS Test Name MPO AB Invalid Interpretation Code [facility] SendOutsSS Test Name PR3 AB Invalid Interpretation Code [facility] SendOutsSS URINALYSISOrdered By: Elizabeth Rosas on 03-31-2022 Bilirubin Ql (U) Negative (03/31/22 7:43 AM) Normal Negative [facility] UA Auto SS Clarity (U) Clear (03/31/22 7:43 AM) Normal Clear [facility] UA Auto SS Color (U) Yellow (03/31/22 7:43 AM) Normal Yellow [facility] UA Auto SS Epithelial cells.squamous LM.HPF (Urine sed) [#/Area] 0-2 /HPF Normal 0-2/HPF [facility] UA Auto SS Glucose Test strip (U) [Mass/Vol] 3+ *ABN* (03/31/22 7:43 AM) Invalid Interpretation Code Negative [facility] UA Auto SS Hemoglobin Ql (U) Negative (03/31/22 7:43 AM) Normal Negative [facility] UA Auto SS Ketones (U) [Mass/Vol] Negative (03/31/22 7:43 AM) Normal Negative [facility] UA Auto SS [place].plasma/Lith ium.RBC (Bld) [Mass ratio] 0-3 /HPF Normal 0-3/HPF [facility] UA Auto SS Nitrite Ql (U) Negative (03/31/22 7:43 AM) Normal Negative [facility] UA Auto SS pH (U) 5.5 *NA* (03/31/22 7:43 AM) Invalid Interpretation Code 5.0 - 9.0 [facility] UA Auto SS Protein (U) [Mass/Vol] Negative (03/31/22 7:43 AM) Normal Negative [facility] UA Auto SS Specific gravity (U) [Rel density] 1.015 *NA* (03/31/22 7:43 AM) Invalid Interpretation Code 1.005 - 1.030 [facility] UA Auto SS UA Spec Desc Clean Catch (03/31/22 7:43 AM) Normal [facility] UA Auto SS Urobilinogen Qn (U) 0.5502060 {Donell'U}/dL Normal 0.0 - 1.0 EU/dL [facility] UA Auto SS WBC Auto Ql (U) Negative (03/31/22 7:43 AM) Normal Negative [facility] UA Auto SS WBC LM.HPF (Urine sed) [#/Area] 0-5 /HPF Normal 0-5/HPF [facility] UA Auto SS US ankle/arm indiceson 03-31 US ankle/arm indices [facility] [place] [address] Ultrasound Report Signed Patient: Evon Corcoran MR#: [id number] : 1950 Acct:[id number] Age/Sex: 71 / F ADM Date: 03/31/22 Loc: [facility]: Miguel Membreno MD Ordering Provider: [...] Miguel Membreno M.D.03/31/2022 3:38 PM Dictation Location: [place] [address] Tech: Christy Chiqui Transcribed By: RICH 03/31/221537 Dictated By: Miguel Membreno MD 03/31/221536 Signed By: 03/31/221537 [facility] CHEMISTRYOrdered By: Jenni Lazaro on 02-12-2022 HbA1c (Bld) [Mass fraction] 9.3 % High <=5.9% [facility] ChemAutoSS Office Visit (Cardiology)on 01-15-2022 Follow-up visit Diagnoses/Problems Assessed Atherosclerosis of [facility] coronary artery of [facility] heart without angina pectoris (414.01) (I25.10) Status [...] vein thrombosis (453.40) (I82.409) Orders Atherosclerosis of [facility] [place] coronary artery of [facility] [place] heart without angina pectoris Renew: Aspirin EC [...] complications. 5. Diabetes, managed by endocrinology in [place]. A1c remains above target 6. Hypertension completely under control. 7. High-risk medication with Xarelto, so far well-tolerated. Takes baby aspirin twice weekly 8. Stage III chronic kidney disease to be monitored closely 9. Recent diagnosis of intermittent claudications and PAD followed by vascular surgery Dr. Daniel in [place], she is currently going through walking exercise program Fariha Guidry MD, [facility] Current Meds Medication NameInstruction amLODIPine Besylate [...] and no (more content not included)... Normal Free & Clear Tobacco Screening.on 022 Fall risk assessment a) No falls within the last year [facility] [employer] 600 DO Work Phone: Tobacco use status [facility] b) No [facility] [employer] DO Work Phone: CHEMISTRYOrdered By: Lab ROP User on 01-06-2022 Glucose [Mass/Vol] 166 mg/dL High 55 - 99 mg/dL [facility] C POC Subsection POC Device SN [id number] Invalid Interpretation Code [facility] POC Subsection POC User ID [id number] Invalid Interpretation Code [facility] POC Subsection POC Username ROSSY ZEPEDA Invalid Interpretation Code [facility] POC Subsection Glucose [Mass/Vol] 166 mg/dL High 55 - 99 mg/dL [facility] C POC Subsection Comment on above: Result Comment: Rain evert Meter POC Device SN [id number] Invalid Interpretation Code [facility] POC Subsection POC User ID [id number] Invalid Interpretation Code [facility] POC Subsection POC Username MILES, ROXANA Invalid Interpretation Code [facility] POC Subsection CHEMISTRYOrdered By: Lab ROP User on 01-01-2022 Glucose [Mass/Vol] 185 mg/dL High 55 - 99 mg/dL [facility] C POC Subsection Comment on above: Result Comment: Rain evert Meter POC Device SN [id number] Invalid Interpretation Code [facility] POC Subsection POC User ID [id number] Invalid Interpretation Code [facility] POC Subsection POC [...] rate/Area] 54 mL/min/1.73 m2 Low >=59mL/min/1.73 m2 [facility] Chem S GFR/1.73 sq M.predicted among non-blacks MDRD (S/P/Bld) [Vol rate/Area] 44 mL/min/1.73 m2 Low >=59mL/min/1.73 m2 [facility] Chem S Globulin (S) [Mass/Vol] 3.8 g/dL [...] a) No falls within the last year [facility] [employer] 600 DO Work Phone: Heart Rate Regular [facility] [employer] 600 DO Work Phone: Office Visit (Cardiology)on [...] Vital Signs Recorded: 28May2021 12:25PMRecorded: 28May2021 12:21PM Dizkurzx197, LUE, Sdbscza757, RUE, Sitting Extxxjdin21, LUE, Irffzly88, RUE, Sitting Heart Rate68, R Radial Pulse QualityRegular, R Radial Height5 ft 5 in Jylcsr668 lb 3.2 oz BMI Yaujptadmw97.98 kg/m2 BSA Calculated2 Fall Screeninga) No falls within the last year Signatures Electronically signed by : Fariha Guidry MD; May 28 2021 3:34PM EST (Author) Normal Free & Clear Laboratory - Chemistry and C hemistry - challengeon 05-11-2021 Cholesterol [Mass/Vol] 96 mg/dL Normal <=129 [facility] [employer] 250 DO Work Phone: Cholesterol in LDL [Mass/Vol] 39 mg/dL Normal 7-40 [facility] [employer] 250 DO Work Phone: CO2 [Moles/Vol] 24 mmol/L Normal 21-31 [facility] 250 DO Work Phone: Glucose [Mass/Vol] 217 mg/dL above high threshold 55-199 [place] [address] DO Work Phone: Comment on above: If this glucose resu lt represents a fasting glucose, interpretation should refer to the following reference range: 55-99 mg/dL Laboratory - Hematology and Cell countson 05-11-2021 Erythrocyte distribution width (RBC) [Ratio] 13.2 % Normal 10.9-14.2 [facility] Work Phone: Hematocrit (Bld) [Volume fraction] 39.5 % Normal 34.0-46.0 [place] [address] DO Work Phone: Platelet mean volume (Bld) [Entitic vol] 11.0 fL above high threshold 6.4-10.8 [facility] [facility] DO Work Phone: No Panel Informationon 05-11 14 {mEq/L} Normal 6-16 [place] [address] DO Work Phone: 102 mmol/L Normal 101-111 [place] [address] DO Work Phone: 4.2 mmol/L Normal 3.5-5.3 [facility] feliz 250 DO Work Phone: 136 mmol/L Normal 135-145 [facility] feliz 250 DO Work Phone: 8.9 mg/dL Normal 8.9-11.1 [facility] 250 DO Work Phone: 25 {No_Units} above high threshold 10-20 [facility] DO Work Phone: 1.0 mg/dL Normal 0.5-1.3 [facility] piper 250 DO Work Phone: 25 mg/dL above high threshold 5-21 -[facility] Satnam piper 250 DO Work Phone: >60 Normal >=59 [facility] [employer]nam piper 250 DO Work Phone: Comment on above: eGFR is race adjuste d. AA=. 55 {mL/min/1.73_m2} below low threshold >=59 [facility] [employer] piper 250 DO Work Phone: Comment on above: Chronic kidney disea se could be indicated at eGFR's of less than 60 mL/min/1.73m2. Kidney failure is indicated at less than 15 mL/min/1.73m2. 54 {Int._Unit/L} above high threshold 6-46 -[facility] Satnam piper 250 DO Work Phone: 67 {Int._Unit/L} above high threshold 5-43 [facility] [employer]nam piper 250 DO Work Phone: 197 mg/dL above high threshold <=149 [facility] [employer] piper 250 DO Work Phone: 49 mg/dL [facility] [employer] piper 250 DO Work Phone: Comment on above: HDL > or equal to 60 mg/dL: Low cardiovascular riskHDL < 40 mg/dL : High cardiovascular risk 193 mg/dL Normal 120-200 [facility] Satnam piper 250 DO Work Phone: 229.0 {E9/L} Normal 150.0-500.0 [facility] Satnam piper 250 DO Work Phone: Comment on above: Slide reviewed by BR Platelet count verified using smear estimate. 85.4 fL Normal 80.0-100.0 [facility] Satnam piper 250 DO Work Phone: 33.5 {gm/dL} Normal 31.4-36.0 [facility] Satnam pipre 250 DO Work Phone: 28.7 pg Normal 27.0-34.0 [facility] [employer] feliz 250 DO Work Phone: 13.2 {gm/dL} Normal 12.0-16.0 [facility] feliz 250 DO Work Phone: 4.6 {E12/L} Normal 4.3-5.9 [facility] feliz 250 DO Work Phone: 6.7 {E9/L} Normal 4.0-11.0 [facility] feliz 250 DO Work Phone: Office Visit (Cardiology)on 05-08-2021 Follow-up visit Diagnoses/Problems Assessed Atherosclerosis of [facility] [place] coronary artery of [facility] [place] heart without angina pectoris (414.01) (I25.10) Chronic kidney disease, stage 3 (585.3) (N18.30) Deep vein thrombosis (453.40) (I82.409) Essential hypertension (401.9) (I10) High risk medication use (V58.69) (Z79.899) Hyperlipidemia (272.4) (E78.5) Status post coronary angioplasty (V45.82) (Z98.61) Never a smoker Class 1 obesity with body mass index (BMI) of 34.0 to 34.9 in adult (278.00,V85.34) (E66.9,Z68.34) Orders Atherosclerosis of [facility] [place] coronary artery of [facility] heart without angina pectoris Renew: Aspirin EC 81 MG Oral Tablet Delayed Release; TAKE ONE TABLET THURSDAY AND THURSDAY Renew: Losartan Potassium 50 MG Oral Tablet; TAKE 1 TABLET TWICE DAILY Atherosclerosis of [facility] [place] coronary artery of [facility] [place] heart without angina pectoris, Chronic kidney disease, stage 3, High risk medication use Basic Metabolic Panel; Status:Active - Retrospective Authorization; Requested for:[id number]; Complete Blood Count; Status:Active - Retrospective Authorization; Requested for:[id number]; Atherosclerosis of [facility] [place] coronary artery of [facility] [place] heart without angina pectoris, Essential hypertension Renew: Metoprolol Succinate ER 50 MG Oral Tablet Extended Release 24 Hour; TAKE 1 TABLET Daily Atherosclerosis of [facility] [place] coronary artery of [facility] heart without angina pectoris, Hyperlipidemia ALT - [...] to be monitored closely Fariha Guidry MD, [facility] Surgical History Problems History of Angioplasty History of Cholecystectomy History of Colonoscopy History of Hysterectomy Past Medical History Problems History of angina pectoris (V12. (more content not included)... Normal Free & Clear Tobacco Screening.on 022 Adult depression screening assessment No [facility] [employer] 250 DO Work Phone: Fall risk assessment a) No falls within the last year [facility] [employer] 250 DO Work Phone: Tobacco use status [facility] b) No [facility] feliz 250 DO Work Phone: Vital Signs Date Time Vital Sign Value Performing Clinician Facility 06-09-2023 09:44-0400 Body height 165.1 cm [facility] 06-09-2023 09:44-0400 Body mass index (BMI) [Ratio] 33.3 kg/m2 [facility] 06-09-2023 09:44-0400 Body temperature 96.4 [degF] [facility] 06-09-2023 09:44-0400 Body weight 90.71 kg [facility] 06-09-2023 09:44-0400 Diastolic blood pressure 76 mm[Hg] [facility] 06-09-2023 09:44-0400 Heart rate 69 /min [facility] 06-09-2023 09:44-0400 SaO2% (BldA) [Mass fraction] 97 % [facility] 06-09-2023 09:44-0400 Systolic blood pressure 152 mm[Hg] [facility] 04-10-2023 09:19-0500 Body temperature 98.42 [degF] [facility] 04-10-2023 09:19-0500 Diastolic blood pressure 68 mm[Hg] [facility] 04-10-2023 09:19-0500 Heart rate 82 /min [facility] 04-10-2023 09:19-0500 Respiratory rate 16 /min [facility] 04-10-2023 09:19-0500 SaO2% (BldA) [Mass fraction] 97 % [facility] 04-10-2023 09:19-0500 Systolic blood pressure 168 mm[Hg] [facility] 03-20-2023 09:00-0500 Blood Pressure Location Christopher KAPLE [facility] 03-20-2023 09:00-0500 Body temperature 98.42 [degF] Christopher KAPLE [facility] 03-20-2023 09:00-0500 Diastolic blood pressure 80 mm[Hg] Christopher KAPLE [facility] 03-20-2023 09:00-0500 Heart rate 70 /min Christopher KAPLE [facility] 03-20-2023 09:00-0500 Respiratory rate 16 /min Christopher KAPLE [facility] 03-20-2023 09:00-0500 SaO2% (BldA) [Mass fraction] 99 % Christopher KAPLE [facility] 03-20-2023 09:00-0500 Systolic blood pressure 132 mm[Hg] Christopher WELLS [facility] 03-04-2023 09:09-0500 Heart rate 80 /min Nicola Willie [facility] 03-04-2023 09:09-0500 SaO2% (BldA) [Mass fraction] 99 % Nicola Willie [facility] 03-04-2023 09:09-0500 Diastolic blood pressure 67 mm[Hg] Petersen Willie [facility] 03-04-2023 09:09-0500 Mean blood pressure 91 mm[Hg] Nicola Tapia [facility] 03-04-2023 09:09-0500 Systolic blood pressure 138 mm[Hg] Nicola Tapia [facility] 03-04-2023 09:09-0500 Respiratory rate 16 /min Petersen Willie [facility] 03-04-2023 09:04-0500 Diastolic blood pressure 96 mm[Hg] Nicola Tapia [facility] 03-04-2023 09:04-0500 Heart rate 84 /min Nicola Tapia [facility] 03-04-2023 09:04-0500 SaO2% (BldA) [Mass fraction] 98 % Nicola Tapia [facility] 03-04-2023 09:04-0500 Systolic blood pressure 165 mm[Hg] Nicola Tapia [facility] 03-04-2023 08:12-0500 Heart rate 82 /min Nicola Tapia [facility] 03-04-2023 08:12-0500 SaO2% (BldA) [Mass fraction] 97 % Nicola Tapia [facility] 03-04-2023 08:12-0500 Diastolic blood pressure 75 mm[Hg] Nicola Tapia [facility] 03-04-2023 08:12-0500 Mean blood pressure 103 mm[Hg] Nicola Tapia [facility] 03-04-2023 08:12-0500 Systolic blood pressure 159 mm[Hg] Nicola Tapia [facility] 03-04-2023 08:12-0500 Body temperature 98.42 [degF] Nicola Tapia [facility] 03-04-2023 08:11-0500 Respiratory rate 14 /min Nicola Tapia [facility] 03-03-2023 11:45-0500 Body height 165.1 cm Miguel Membreno Other [employer] Other 03-03-2023 11:45-0500 Body mass index (BMI) [Ratio] 33.28 kg/m2 Miguel Membreno Other [employer] Other 03-03-2023 11:45-0500 Body temperature 97.8 [degF] Miguel Membreno Other [employer] Other 03-03-2023 11:45-0500 Body weight 90.72 kg Miguel Membreno Other [employer] Other 03-03-2023 11:45-0500 Diastolic blood pressure 72 mm[Hg] Miguel Membreno Other [employer] Other 03-03-2023 11:45-0500 SaO2% (BldA) [Mass fraction] 96 % Miguel Membreno Other [employer] Other 03-03-2023 11:45-0500 Systolic blood pressure 124 mm[Hg] Miguel Membreno Other [facility] [employer] Other 02-18-2023 13:40-0500 Diastolic blood pressure 70 mm[Hg] DO Christopher Kaple Work Phone: [facility] 02-18-2023 13:40-0500 Heart rate 64 /min DO Christopher Kaple Work Phone: [facility] 02-18-2023 13:40-0500 Respiratory rate 16 /min DO Christopher Kaple Work Phone: [facility] 02-18-2023 13:40-0500 SaO2% (BldA) [Mass fraction] 98 % DO Christopher Kaple Work Phone: [facility] 02-18-2023 13:40-0500 Systolic blood pressure 169 mm[Hg] DO Christopher Kaple Work Phone: [facility] 02-18-2023 12:40-0500 Inhaled oxygen flow rate 1 L/min DO Christopher Kaple Work Phone: [facility] 02-18-2023 09:15-0500 Body height 165.1 cm DO Christopher Kaple Work Phone: [facility] 02-18-2023 09:15-0500 Body weight 97.52 kg DO Christopher Kaple Work Phone: [facility] 02-16-2023 13:23-0500 Heart rate 76 /min Gary Prashant [facility] 02-16-2023 13:23-0500 SaO2% (BldA) [Mass fraction] 96 % Gary Prashant [facility] 02-16-2023 13:22-0500 Diastolic blood pressure 80 mm[Hg] Gary Prashant [facility] 02-16-2023 13:22-0500 Mean blood pressure 105 mm[Hg] Gary Cerda [facility] [facility] 02-16-2023 13:22-0500 Systolic blood pressure 155 mm[Hg] Gary Cerda [facility] 02-16-2023 13:22-0500 Body temperature 97.7 [degF] Gary Cerda [facility] 02-16-2023 13:21-0500 Respiratory rate 16 /min Gary Cerda [facility] 02-12-2023 09:03-0500 Body height 165.1 cm Fariha Guidry MD Work Phone: [facility] 02-12-2023 09:03-0500 Body mass index (BMI) [Ratio] 35.78 kg/m2 Fariha Guidry MD Work Phone: [facility] 02-12-2023 09:03-0500 Body weight 97.52 kg Fariha Guidry MD Work Phone: [facility] 02-12-2023 09:03-0500 Diastolic blood pressure 64 mm[Hg] Fariha Guidry MD Work Phone: [facility] 02-12-2023 09:03-0500 Heart rate 64 /min Fariha Guidry MD Work Phone: [facility] 02-12-2023 09:03-0500 Systolic blood pressure 120 mm[Hg] Fariha Guidry MD Work Phone: [facility] 01-26-2023 08:00-0500 Blood Pressure Location Christopher WELLS [facility] 01-26-2023 08:00-0500 Body temperature 98.6 [degF] Christopher WELLS [facility] 01-26-2023 08:00-0500 Diastolic blood pressure 72 mm[Hg] Christopher KAPLE [facility] 01-26-2023 08:00-0500 Heart rate 65 /min Christopher KAPLE [facility] 01-26-2023 08:00-0500 SaO2% (BldA) [Mass fraction] 96 % Christopher KAPLE [facility] 01-26-2023 08:00-0500 Systolic blood pressure 124 mm[Hg] Christopher KAPLE [facility] 01-06-2023 08:13-0400 Diastolic blood pressure 78 mm[Hg] Gary Prashant [facility] 01-06-2023 08:13-0400 Heart rate 69 /min Gary Prashant [facility] 01-06-2023 08:13-0400 Mean blood pressure 107 mm[Hg] Gary Prashant [facility] 01-06-2023 08:13-0400 Respiratory rate 14 /min Gary Prashant [facility] 01-06-2023 08:13-0400 Systolic blood pressure 166 mm[Hg] Gary Prashant [facility] 01-05-2023 09:15-0400 Body height 165.1 cm Miguel Membreno Other [employer] Other 01-05-2023 09:15-0400 Body mass index (BMI) [Ratio] 33.28 kg/m2 Miguel Membreno Other [employer] [facility] Other 01-05-2023 09:15-0400 Body temperature 96.3 [degF] Miguel Buehrer Other [employer] Other 01-05-2023 09:15-0400 Body weight 90.72 kg Miguel Maierehrer Other [employer] Other 01-05-2023 09:15-0400 Diastolic blood pressure 62 mm[Hg] Miguel Buehrer Other [employer] Other 01-05-2023 09:15-0400 SaO2% (BldA) [Mass fraction] 97 % Miguel Buehrer Other [employer] Other 01-05-2023 09:15-0400 Systolic blood pressure 120 mm[Hg] Miguel Buehrer Other [employer] Other 11-04-2022 12:00-0400 Body height 165.1 cm Miguel Martinezrer Other [employer] Other 11-04-2022 12:00-0400 Body mass index (BMI) [Ratio] 33.28 kg/m2 Miguel Martinezrer Other [employer] Other 11-04-2022 12:00-0400 Body temperature 97.1 [degF] Miguel Martinezrer Other [employer] Other 11-04-2022 12:00-0400 Body weight 90.72 kg Miguel Maierehrer Other [employer] Other 11-04-2022 12:00-0400 Diastolic blood pressure 70 mm[Hg] Miguel Buehrer Other [employer] Other 11-04-2022 12:00-0400 SaO2% (BldA) [Mass fraction] 95 % Miguel Martinezkym Other [employer] Other 11-04-2022 12:00-0400 Systolic blood pressure 140 mm[Hg] Miguel Butchermelissa Other [employer] Other 11-03-2022 10:30-0400 Body height 165.1 cm Renetta Patjulesmelissa Other [employer] Other 11-03-2022 10:30-0400 Body mass index (BMI) [Ratio] 33.28 kg/m2 Renetta Patmargaret Other [employer] Other 11-03-2022 10:30-0400 Body temperature 97.6 [degF] Renetta Patmargaret Other [employer] Other 11-03-2022 10:30-0400 Body weight 90.72 kg Renetta Barahona Other [employer] Other 11-03-2022 10:30-0400 Diastolic blood pressure 76 mm[Hg] Renetta Brooklyn Other [employer] Other 11-03-2022 10:30-0400 SaO2% (BldA) [Mass fraction] 98 % Renetta Patmargaret Other [employer] Other 11-03-2022 10:30-0400 Systolic blood pressure 116 mm[Hg] Renetta Patmargaret Other [employer] Other 09-10-2022 08:12-0400 Blood Pressure Location Linda Solorio [facility] 09-10-2022 08:12-0400 Body temperature 96.8 [degF] Linda Osmin [facility] 09-10-2022 08:12-0400 Diastolic blood pressure 71 mm[Hg] Linda Osmin [facility] 09-10-2022 08:12-0400 Heart rate 56 /min Linda Osmin [facility] 09-10-2022 08:12-0400 Systolic blood pressure 118 mm[Hg] Linda Osmin [facility] 06-11-2022 09:10-0400 Diastolic blood pressure 70 mm[Hg] Linda Osmin [facility] 06-11-2022 09:10-0400 Mean blood pressure 92 mm[Hg] Linda Osmin [facility] 06-11-2022 09:10-0400 Systolic blood pressure 136 mm[Hg] Linda Osmin [facility] 06-11-2022 09:04-0400 Blood Pressure Location Linda Osmin [facility] 06-11-2022 09:04-0400 Body temperature 97.88 [degF] Linda Osmin [facility] 06-11-2022 09:04-0400 Diastolic blood pressure 75 mm[Hg] Linda Osmin [facility] 06-11-2022 09:04-0400 Heart rate 66 /min Linda Osmin [facility] 03-29-2023 09:04-0400 Systolic blood pressure 155 mm[Hg] Linda Solorio [facility] 05-05-2022 09:45-0500 Body height 165.1 cm Miguel Membreno Other [employer] Other 05-05-2022 09:45-0500 Body mass index (BMI) [Ratio] 33.28 kg/m2 Miguel Membreno Other [employer] Other 05-05-2022 09:45-0500 Body temperature 96.2 [degF] Miguel Membreno Other [employer] Other 05-05-2022 09:45-0500 Body weight 90.72 kg Miguel Membreno Other [employer] Other 05-05-2022 09:45-0500 Diastolic blood pressure 60 mm[Hg] Miguel Membreno Other [employer] Other 05-05-2022 09:45-0500 SaO2% (BldA) [Mass fraction] 97 % Miguel Membreno Other [employer] Other 05-05-2022 09:45-0500 Systolic blood pressure 112 mm[Hg] Miguel Membreno Other [employer] Other 04-07-2022 20:00-0500 Diastolic blood pressure 80 mm[Hg] DO Christopher Kaple Work Phone: [facility] 04-07-2022 20:00-0500 Heart rate 70 /min DO Christopher Kaple Work Phone: [facility] 04-07-2022 20:00-0500 Respiratory rate 18 /min DO Christopher Kaple Work Phone: [facility] 04-07-2022 20:00-0500 SaO2% (BldA) [Mass fraction] 98 % DO Christopher Kaple Work Phone: [facility] 04-07-2022 20:00-0500 Systolic blood pressure 159 mm[Hg] DO Christopher Kaple Work Phone: [facility] 04-07-2022 17:05-0500 Body temperature 98.1 [degF] DO Christopher Kaple Work Phone: [facility] 04-07-2022 16:20-0500 Inhaled oxygen flow rate 2 L/min DO Christopher Kaple Work Phone: [facility] 04-07-2022 13:53-0500 Body height 165.1 cm DO Christopher Kaple Work Phone: [facility] 04-07-2022 13:53-0500 Body weight 90.71 kg DO Christopher Kaple Work Phone: [facility] 03-31-2022 10:15-0500 Body height 165.1 cm Renetta Barahona Other [employer] Other 03-31-2022 10:15-0500 Body mass index (BMI) [Ratio] 33.28 kg/m2 Renetta Barahona Other [employer] Other 03-31-2022 10:15-0500 Body temperature 98.7 [degF] Renetta Barahona Other [employer] Other 03-31-2022 10:15-0500 Body weight 90.72 kg Renetta Barahona Other [employer] Other 03-31-2022 10:15-0500 Diastolic blood pressure 82 mm[Hg] Renetta Barahona Other [employer] Other 03-31-2022 10:15-0500 SaO2% (BldA) [Mass fraction] 98 % Renetta Barahona Other [employer] Other 03-31-2022 10:15-0500 Systolic blood pressure 136 mm[Hg] Renetta Barahona Other [employer] Other 01-27-2022 12:00-0500 Body height 165.1 cm Miguel Martinezremelissa Other [employer] Other 01-27-2022 12:00-0500 Body mass index (BMI) [Ratio] 33.28 kg/m2 Miguel Martinezrer Other [employer] Other 01-27-2022 12:00-0500 Body temperature 97.7 [degF] Miguel Maierehrer Other [employer] Other 01-27-2022 12:00-0500 Body weight 90.72 kg Miguel Martinezrer Other [employer] Other 01-27-2022 12:00-0500 Diastolic blood pressure 70 mm[Hg] Miguel Maierehrer Other [employer] Other 01-27-2022 12:00-0500 SaO2% (BldA) [Mass fraction] 98 % Miguel Martinezrer Other [employer] Other 01-27-2022 12:00-0500 Systolic blood pressure 142 mm[Hg] Miguel Buehrer Other [employer] Other 01-15-2022 10:29-0400 Body height 165.1 cm Christopher Wells Work Phone: [facility] [employer] [address] DO Work Phone: 01-15-2022 10:29-0400 Body mass index (BMI) [Ratio] 34.95 kg/m2 Christopher Bale Work Phone: [facility] [employer] [address] DO Work Phone: 01-15-2022 10:29-0400 Body surface area Derived from formula 2.02 m2 Christopher Wells Work Phone: [facility] [employer] [address] DO Work Phone: 01-15-2022 10:29-0400 Body weight 95.26 kg Christopher Bale Work Phone: [facility] [employer] [address] DO Work Phone: 01-15-2022 10:29-0400 Diastolic blood pressure 60 mm[Hg] Christopher Wells Work Phone: [facility] [employer] [address] DO Work Phone: 01-15-2022 10:29-0400 Heart rate 68 /min Christopher Wells Work Phone: [facility] [employer] DO Work Phone: 01-15-2022 10:29-0400 Systolic blood pressure 116 mm[Hg] Christopher Wells Work Phone: [facility] 600 DO Work Phone: 11-28-2021 15:19-0400 Blood Pressure Location Charis Daniel [facility] 11-28-2021 15:19-0400 Diastolic blood pressure 69 mm[Hg] Charis Daniel [facility] 11-28-2021 15:19-0400 Heart rate 61 /min Charis Daniel [facility] 11-28-2021 15:19-0400 Respiratory rate 18 /min Charis Fredy [facility] 11-28-2021 15:19-0400 SaO2% (BldA) [Mass fraction] 98 % Charis Larsonan [facility] 11-28-2021 15:19-0400 Systolic blood pressure 132 mm[Hg] Charis Daniel [facility] 10-28-2021 09:56-0400 Blood Pressure Location Charis Daniel [facility] 10-28-2021 09:56-0400 Diastolic blood pressure 72 mm[Hg] Charis Daniel [facility] 10-28-2021 09:56-0400 Heart rate 76 /min Charis Daniel [facility] 10-28-2021 09:56-0400 SaO2% (BldA) [Mass fraction] 96 % Charis Larsonan [facility] 10-28-2021 09:56-0400 Systolic blood pressure 120 mm[Hg] Charis Daniel [facility] 05-28-2021 12:25-0400 Diastolic blood pressure 64 mm[Hg] [facility] Work Phone: 05-28-2021 12:25-0400 Systolic blood pressure 130 mm[Hg] [facility] Work Phone: 05-28-2021 12:21-0400 Body height 165.1 cm [facility] Work Phone: 05-28-2021 12:21-0400 Body mass index (BMI) [Ratio] 33.98 kg/m2 Christopher Wells Work Phone: [facility] DO Work Phone: 05-28-2021 12:21-0400 Body surface area Derived from formula 2 m2 [facility] Work Phone: 05-28-2021 12:21-0400 Body weight 92.63 kg Christopher [facility] Work Phone: 05-28-2021 12:21-0400 Diastolic blood pressure 76 mm[Hg] [facility] Work Phone: 05-28-2021 12:21-0400 Heart rate 68 /min Christopher [facility] Work Phone: 05-28-2021 12:21-0400 Systolic blood pressure 140 mm[Hg] [facility] Work Phone: 05-08-2021 11:36-0500 Diastolic blood pressure 90 mm[Hg] Christopher Wells Work Phone: [facility] [employer] 250 DO Work Phone: 05-08-2021 11:36-0500 Systolic blood pressure 180 mm[Hg] Christopher Wells Work Phone: [facility] [employer] 250 DO Work Phone: 05-08-2021 11:20-0500 Body height 165.1 cm Christopher Wells Work Phone: [facility] 250 DO Work Phone: 05-08-2021 11:20-0500 Body mass index (BMI) [Ratio] 34.11 kg/m2 Christopher Wells Work Phone: [facility] 250 DO Work Phone: 05-08-2021 11:20-0500 Body surface area Derived from formula 2 m2 Christopher Wells Work Phone: [facility] 250 DO Work Phone: 05-08-2021 11:20-0500 Body weight 92.99 kg Christopher Wells Work Phone: [facility] 250 DO Work Phone: 05-08-2021 11:20-0500 Diastolic blood pressure 90 mm[Hg] Christopher Wells Work Phone: [facility] 250 DO Work Phone: 05-08-2021 11:20-0500 Heart rate 68 /min Christopher Wells Work Phone: [facility] 250 DO Work Phone: 05-08-2021 11:20-0500 Systolic blood pressure 142 mm[Hg] Christopher Wells Work Phone: [facility] 250 DO Work Phone: Encounters Encounter Date Encounter Type Care Provider Facility Start: 06-09-2023 End: 06-09-2023 ambulatory [facility] Work Phone: Start: 06-09-2023 End: 06-09-2023 Patient encounter procedure [facility] Work Phone: Start: 05-11-2023 End: 05-12-2023 ambulatory Christopher WELLS Facility[facility] Start: 04-10-2023 End: 04-10-2023 Emergency department patient visit Malvin Gupta Facility:[facility] Start: 04-10-2023 End: 04-10-2023 Emergency department patient visit [facility] Chris Gupta [facility] Start: 03-23-2023 End: 03-24-2023 ambulatory Mara Pastor Facility:[facility] Start: 03-20-2023 End: 03-21-2023 ambulatory Christopher WELLS Facility:[facility] Start: 03-20-2023 End: 03-20-2023 Patient encounter procedure Christopher WELLS [facility] Start: 03-18-2023 End: 03-18-2023 ambulatory DENTON D DOLCE Not Available Start: 03-04-2023 End: 03-05-2023 ambulatory Nicoal aTpia Facility:[facility] Start: 03-04-2023 End: 03-04-2023 Pain Management Nicola Tapia [facility] Start: 03-03-2023 End: 03-03-2023 Patient encounter procedure Denton Mares [facility] Start: 03-03-2023 End: 03-04-2023 ambulatory Denton D Dolce [place] [employer] Other Start: 03-03-2023 Office outpatient vi sit 25 minutes Miguel Membreno [facility] V[facility] Surgery Start: 03-02-2023 End: 03-03-2023 ambulatory Linda Solorio Facility:[facility] Start: 03-02-2023 End: 03-02-2023 Patient encounter procedure Linda Solorio [facility] Start: 02-24-2023 End: 02-25-2023 ambulatory Denton D Dolce Facility:[facility] Start: 02-20-2023 End: 02-20-2023 ambulatory DENTON D DOLCE Not Available Start: 02-19-2023 End: 04-10-2023 ambulatory Christopher WELLS Facility:[id number] Start: 02-18-2023 End: 02-18-2023 ambulatory Miguel Darrionsatnammelissa Facility[facility] Start: 02-18-2023 End: 02-18-2023 Admission to same day surgery center DO Christopher Wells Work Phone: [facility] Work Phone: Start: 02-18-2023 End: 02-18-2023 ambulatory DO Christopher Wells Work Phone: [facility] Work Phone: Start: 02-16-2023 End: 02-17-2023 ambulatory MD Gary Cerda Facility:[facility] Start: 02-16-2023 End: 02-16-2023 Pain Management Gary Cerda [facility] Start: 02-16-2023 End: 02-17-2023 ambulatory Denton Mares Facility:[facility] Start: 02-16-2023 End: 02-16-2023 Patient encounter procedure Denton Mares [facility] Start: 02-12-2023 End: 02-12-2023 ambulatory FRIED M Kell [facility] Ambulatory Start: 02-12-2023 End: 02-12-2023 Office outpatient visit 25 minutes Fariha Guidry MD Work Phone: [facility] Comment on above: Atherosclerosis of n ative coronary artery of [facility] heart without angina pectoris; Status post coronary angioplasty; Essential hypertension; Hyperlipidemia, unspecified hyperlipidemia type; PVD (peripheral vascular disease) ([facility]); Stage 3 chronic kidney disease, unspecified whether stage 3a or 3b CKD ([facility]); Sleep apnea, unspecified type Start: 02-10-2023 End: 02-11-2023 ambulatory Denton Mares Facility:[facility] Start: 02-10-2023 End: 02-10-2023 Patient encounter procedure Denton Mares [facility] Start: 01-27-2023 End: 01-28-2023 ambulatory Denton Gomez Suz[facility] [employer] Other Start: 01-27-2023 Telephone encounter Miguel Membreno [facility] Vascular Surgery Start: 01-27-2023 End: 01-27-2023 Patient encounter procedure Denton Mares [facility] Start: 01-26-2023 End: 01-27-2023 ambulatory Christopher WELLS Facility:[facility] Start: 01-26-2023 End: 01-26-2023 Patient encounter procedure Christopher WELLS [facility] Start: 01-26-2023 End: 01-26-2023 Well adult monitoring check done Christopher WELLS [facility] Start: 01-19-2023 End: 01-20-2023 ambulatory Denton Mares Facility:[facility] Start: 01-19-2023 End: 01-19-2023 Patient encounter procedure Denton Mares [facility] Start: 01-13-2023 End: 01-14-2023 ambulatory Denton Augreg Facility:[facility] Start: 01-13-2023 End: 01-13-2023 Patient encounter procedure Denton Jason Mares [facility] Start: 01-06-2023 End: 01-07-2023 ambulatory MD Gary Cerda Facility:[facility] Start: 01-06-2023 End: 01-06-2023 Pain Management Gary Cerda [facility] Start: 01-05-2023 End: 01-05-2023 ambulatory Miguel Membreno Other [employer] Other Start: 01-05-2023 Office outpatient vi sit 25 minutes Miguel Membreno [facility] Vascular Surgery Start: 12-31-2022 End: 01-01-2023 ambulatory Catrachito Wolf Facility:[facility] Start: 12-31-2022 End: 12-31-2022 Patient encounter procedure Catrachito Wolf [facility] Start: 12-22-2022 End: 12-23-2022 ambulatory Denton Mares Facility:[facility] Start: 12-18-2022 End: 12-19-2022 ambulatory Christopher A RUSSELL Facility:[facility] Start: 12-08-2022 End: 12-09-2022 ambulatory Catrachito Wolf Facility:[facility] Start: 12-08-2022 End: 12-08-2022 Patient encounter procedure Catrachito Wolf [facility] Start: 11-24-2022 End: 11-25-2022 ambulatory Christopher A RUSSELL Facility:[facility] Start: 11-24-2022 End: 11-24-2022 Patient encounter procedure Christopher A KAPLE [facility] Start: 11-06-2022 End: 11-07-2022 ambulatory Christopher A KAPJANNA Facility:[facility] Start: 11-04-2022 Office outpatient vi sit 25 minutes Miguel Membreno [facility] Vascular Surgery Start: 11-04-2022 End: 11-04-2022 ambulatory DO Christopher A Kaple Work Phone: [employer] Other Start: 11-04-2022 End: 11-04-2022 Patient encounter procedure DO Christopher Kaple Work Phone: [facility] Start: 11-03-2022 Follow-up encounter Renetta Musa V[facility] Surgery Start: 11-03-2022 End: 11-03-2022 [facility] Start: 11-03-2022 End: 11-03-2022 Patient encounter procedure DO Christopher Wells Work Phone: [facility] Start: 10-31-2022 End: 11-01-2022 ambulatory Klaus Akkina Facility:[facility] Start: 10-31-2022 End: 10-31-2022 Patient encounter procedure Klaus Akkina [facility] Start: 09-18-2022 Chart Update Christopher Wells Work Phone: [facility] 250 DO Work Phone: Start: 09-17-[address] Christopher Moulton [id number] Start: 09-10-2022 End: 09-11-2022 ambulatory Linda Solorio Facility:[facility] Start: 09-10-2022 End: 09-10-2022 Patient encounter procedure Linda Solorio [facility] Start: 08-01-2022 End: 08-02-2022 ambulatory Fariha Cumminsahim Facility:[facility] Start: 07-23-2022 Rx Renewal Christopher Wells Work Phone: [facility] 250 DO Work Phone: Start: 06-13-2022 Rx Renewal Christopher Wells Work Phone: [facility] 250 DO Work Phone: Start: 06-11-2022 End: 06-11-2022 Patient encounter procedure Linda Solorio [facility] Start: 05-08-2022 End: 05-08-2022 Lab Drop off Linda Solorio [facility] Start: 05-05-2022 End: 05-05-2022 ambulatory Miguel Membreno Other [place] [facility] Other Start: 05-05-2022 Office outpatient vi sit 25 minutes Miguel Membreno [facility] Vascular Surgery Start: 04-08-2022 End: 04-08-2022 ambulatory Renetta Patjulesmelissa Other [place] [facility] Other Start: 04-08-2022 Telephone encounter Renetta [place] [facility] Start: 04-07-2022 End: 04-07-2022 ambulatory Miguelerrol Martinezbettymelissa Facility[facility] Start: 04-07-2022 End: 04-07-2022 Admission to same day surgery center DO Christopher Wells Work Phone: [facility] Work Phone: Start: 04-07-2022 End: 04-07-2022 ambulatory DO Christopher A Kaple Work Phone: [facility] Work Phone: Start: 03-31-2022 Follow-up encounter Renetta [place] [facility] Start: 03-31-2022 End: 03-31-2022 ambulatory Miguel Michellekym Facility[facility] Start: 03-31-2022 End: 03-31-2022 ambulatory DO Christopher A Kaple Work Phone: [facility] Work Phone: Start: 03-31-2022 End: 03-31-2022 Patient encounter procedure DO Christopher Kaple Work Phone: [facility] Start: 03-31-2022 End: 03-31-2022 Patient encounter procedure Klaus Núñez [facility] Start: 02-12-2022 End: 02-12-2022 Patient encounter procedure Christopher WELLS [facility] Start: 01-27-2022 End: 01-27-2022 ambulatory Miguel Membreno Other [facility] Other Start: 01-27-2022 Office outpatient ne w 45 minutes Miguel Membreno [facility] Vascular Surgery Start: 01-15-[address] Fariha Guidry Facility: Start: 01-15-2022 Office outpatient vi sit 25 minutes Christopher Wells Work Phone: [facility] 600 DO Work Phone: Start: 12-31-2021 End: 06-01-2022 Recurring Charis Daniel [facility] Start: 11-28-2021 End: 11-28-2021 Patient encounter procedure Charis Daniel [facility] Start: 11-12-2021 Rx Renewal [facility] Work Phone: Start: 10-28-2021 Rx Renewal [facility] Work Phone: Start: 10-28-2021 End: 10-28-2021 Patient encounter procedure Charis Daniel [facility] Start: 10-01-2021 End: 10-01-2021 Patient encounter procedure Christopher WELLS [facility] Start: 09-24-2021 End: 09-24-2021 Patient encounter procedure Christopher Moni WELLS [facility] Start: 08-08-2021 End: 08-08-2021 Patient encounter procedure Christopher Moni MEJIAJANNA [facility] Start: 07-30-2021 Rx Renewal Christopher Moni Mejiajanna Work Phone: [place] [facility] 250 DO Work Phone: Start: 06-12-2021 End: 01-13-2022 Recurring Christopher Moni RUSSELL [facility] Start: 05-28-2021 Office outpatient vi sit 10 minutes Christopher Wells Work Phone: [facility] 600 DO Work Phone: Start: 05-28-2021 ambulatory Christopher Moni Russell Facility: Start: 05-12-2021 Chart Update Christopher Moni Wells Work Phone: [facility] 250 DO Work Phone: Start: 05-08-2021 ambulatory [...] 05-21-2032 Screening for malignant neoplasm of colon [facility] Start: 05-09-2025 DTaP/Tdap/Td Vaccines (2 - Td or Tdap) DTaP/Tdap/Td Vaccines (2 - Td or Tdap) [facility] Start: 02-01-2024 ambulatory Ambulatory Facility:[facility] Start: 07-28-2023 ambulatory Ambulatory Facility:[facility] Start: 02-18-2023 US Lower extremity veins - bilateral [facility] Start: 02-18-2023 US scan venography of lower limbs US venous mapping BI lower [facility] Start: 02-18-2023 [facility] Start: 02-12-2023 End: 02-13-2024 Alanine aminotransferase [Enzymatic activity/volume] in Serum or Plasma by With P-5'-P Alanine Aminotransferase Lab Routine Atherosclerosis of [facility] [place] [place] coronary artery of [facility] heart without angina pectoris Hyperlipidemia, unspecified hyperlipidemia type Expected: 02/12/2023 (Approximate), Expires: 02/13/2024 [facility] Service Area Work Phone: Comment on above: Expected: 02/12/2023 (Approximate), Expi res: 02/13/2024 Start: 02-12-2023 End: 02-13-2024 Aspartate aminotransferase [Enzymatic activity/volume] in Serum or Plasma by With P-5'-P Aspartate Aminotransferase Lab Routine Atherosclerosis of [facility] [place] coronary artery of [facility] [place] heart without angina pectoris Hyperlipidemia, unspecified hyperlipidemia type Expected: 02/12/2023 (Approximate), Expires: 02/13/2024 [facility] Work Phone: Comment on above: Expected: 02/12/2023 (Approximate), Expi res: 02/13/2024 Start: 02-12-2023 End: 02-13-2024 Lipid 1996 panel - Serum or Plasma Lipid Panel Lab Routine Atherosclerosis of [facility] [place] coronary artery of [facility] [place] [place] heart without angina pectoris Hyperlipidemia, unspecified hyperlipidemia type Expected: 02/12/2023 (Approximate), Expires: 02/13/2024 [facility] Work Phone: Comment on above: Expected: 02/12/2023 (Approximate), Expi res: 02/13/2024 Start: 02-12-2023 FUV, Provider: Fariha Guidry, Status: Pen, Time: 9:00 AM FUV, Provider: Fariha Guidry, Status: Pen, Time: 9:[address] [facility] 250 DO Work Phone: Start: 11-14-2022 Influenza vaccination Influenza Vaccine (#1) [facility] Start: 07-30-2022 FUV, Provider: Fariha Guidry, Status: Pen, Time: 8:40 AM FUV, Provider: Fariha Guidry, Status: Pen, Time: 8:40 AM [facility] Work Phone: Start: 04-07-2022 [facility] Start: 02-12-2022 COVID-19 Vaccine (4 - Booster for Luca series) COVID-19 Vaccine (4 - Booster for Luca series) [facility] Start: 01-15-2022 FUV, Provider: Fariha Guidry, Status: Pen, Time: 10:10 AM FUV, Provider: Fariha Guidry, Status: Pen, Time: 10:10 AM [facility] Work [facility]: Start: 05-28-2021 NURSEVST, Provider: CITLALLI RASHID [employer]IGHT FORWARDER 1,[id number], Status: Pen, Time: 11:45 AM NURSEVST, Provider: CITLALLI RASHID [employer]IGHT FORWARDER 1,[id number], Status: Pen, Time: 11:45 AM [facility] 250 DO Work Phone: Start: 1989 Screening for malignant neoplasm of breast Mammogram [facility] Start: 06-25-1967 Diabetes mellitus screening Diabetes Screening [facility] Start: 06-25-1967 Hepatitis C screening Hepatitis C Screening [facility] Start: 1949 Lipid panel Lipid Panel [facility] Start: 1950 Medicare Annual Wellness Visit Medicare Annual Wellness Visit (AWV) [facility] Start: 1949 Screening for malignant neoplasm of colon [facility] Start: 1950 Screening for osteoporosis Bone Density Scan [facility] Ankle brachial press ure index [facility] Patient Education [facility] Work Phone: Patient referral [facility] Work Phone: Immunizations Immunization Date Immunization Notes Care Provider Fa cility 12-18-2021 Fluad Quadrivalent 0 .5 ML Intramuscular Prefilled Syringe Christopher Wells Work Phone: [facility] 600 DO Work Phone: 12-18-2021 influenza virus vaccine, unspecified formulation Christopher WELLS [facility] 12-18-2021 Pfizer COVID-19 Vac Bivalent 30 MCG/0.3ML Intramuscular Suspension Christopher Wells Work Phone: [facility] 600 DO Work Phone: 12-18-2021 SARS-CoV-2 (COVID-19 ) mRNA BNT-162b2 vax Christopher WELLS [facility] 03-26-2021 Fluzone High-Dose Quadrivalent 0.7 ML Intramuscular Suspension Prefilled Syringe [facility] Work [facility]: 03-26-2021 influenza virus vaccine, unspecified formulation Christopher WELLS [facility] 03-26-2021 Pfizer-BioNTech COVID-19 Vacc 30 MCG/0.3ML Intramuscular Suspension Christopher Wells Work Phone: [place] [address] DO Work Phone: 05-19-2020 Luca COVID-19 Vaccine 0.5 ML Intramuscular Suspension Christopher Wells Work Phone: [place] [address] DO Work Phone: 05-18-2020 COVID-19 vaccine, vector-nr, [id number], PF, 0.5 mL; Translations: [Luca COVID-19 Vaccine] Christopher WELLS [facility] Comment on above: Reason for Medicatio n: Prophylaxis Reason for Medicatio n: Prophylaxis 02-23-2020 zoster vaccine recombinant Christopher Wells Work Phone: [facility] 250 DO Work Phone: 01-05-2020 Fluad Quadrivalent 0 .5 ML Intramuscular Prefilled Syringe Christopher Wells Work Phone: [facility] 250 DO Work Phone: 01-05-2020 influenza virus vaccine, unspecified formulation Christopher WELLS [facility] 12-28-2019 influenza, high dose seasonal, preservative-free Christopher Wells Work Phone: [place] [address] DO Work Phone: 12-15-2019 influenza virus vaccine, unspecified formulation Christopher WELLS [facility] 11-15-2019 zoster vaccine recombinant Christopher Wells Work Phone: [place] [address] DO Work Phone: 11-15-2019 zoster vaccine, live Christopher MARTI [facility] 12-20-2018 influenza, high dose seasonal, preservative-free Christopher WELLS [facility] 12-14-2018 influenza virus vaccine, unspecified formulation Christopher RUSSELL [facility] 12-14-2018 influenza, high dose seasonal, preservative-free Christopher Wells Work Phone: [place] [address] DO Work Phone: 12-14-2018 pneumococcal polysaccharide vaccine, 23 valent Christopher Wells Work Phone: [place] [address] DO Work Phone: 02-16-2018 influenza virus vaccine, unspecified formulation Christopher WELLS [facility] 02-16-2018 Influenza, injectabl e, Madin Billings Canine Kidney, preservative free, quadrivalent Christopher Wells Work Phone: [place] [address] DO Work Phone: 02-16-2018 pneumococcal conjuga te vaccine, 13 valent Christopher Wells Work Phone: [place] [address] DO Work Phone: 11-14-2017 influenza virus vaccine, unspecified formulation Christopher Wells Work Phone: [place] [address] DO Work Phone: 11-27-2016 influenza virus vaccine, unspecified formulation Christopher WELLS [facility] 11-27-2016 influenza, high dose seasonal, preservative-free Christopher Moni Wells Work Phone: [place] [address] DO Work Phone: 01-21-2016 influenza virus vaccine, unspecified formulation Christopher RUSSELL [facility] 01-21-2016 influenza, high dose seasonal, preservative-free Christopher Wells Work Phone: [place] [address] DO Work Phone: 05-09-2015 tetanus toxoid, redu louise diphtheria toxoid, and acellular pertussis vaccine, adsorbed Christopher Wells Work Phone: [place] [address] DO Work Phone: 02-26-2009 novel [id number], preservative-free, injectable Christopher Wells Work Phone: [place] [address] DO Work Phone: NEGATED: Highlighted row has not occurred!02-27-2023 influenza virus vaccine, unspecified formulation Linda Solorio [facility] NEGATED: Highlighted row has not occurred!12-18-2022 influenza virus vaccine, unspecified formulation Catrachito Pomeroy [facility] Payers Date Payer Category Payer Self-pay [id number] 2022 Unknown [id number] 2018 Unknown 2018 Unknown [id number] 2014 Medicare [id number] 2014 Medicare MEDICARE MEDICAR E PART A AND B [id number] 2014-Present [address] [place] [address] [id number]. [id number] 1949 Unknown [id number] 2.16.840.1.071422.3.579.2.356 1949 Unknown [id number] 2.16.840.1.684821.3.579.2.356 1949 Unknown [id number] 2.16.840.1.479262.3.579.2.356 1949 Unknown [id number] 2.16.840.1.271778.3.579.2.1068 1949 Unknown [id number] 2.16.840.1.933876.3.579.2.1244 1949 Unknown [id number] 2.16.840.1.931347.3.579.2.1259 1949 Unknown [id number] 2.16.840.1.775905.3.579.2.1259 1949 Unknown [id number] 2.16.840.1.868340.3.579.2.727 1949 Unknown [id number] 2.16.840.1.023522.3.579.2.727 1949 Unknown [id number] 2.16.840.1.446644.3.579.2.727 1949 Unknown [id number] 2.16.840.1.241132.3.579.2 1949 Unknown [id number] 2.16.840.1.265855.3.579.2 1949 Unknown [id number] 2.16.840.1.333003.3.579.2 1949 Unknown [id number] 2.16.840.1.178781.3.579.2 1949 Unknown [id number] 2.16.840.1.106523.3.579.2 1949 Unknown [id number] 2.16.840.1.496320.3.579. 1949 Unknown [id number] 2.16.840.1.093081.3.579. 1949 Unknown [id number] 2.16.840.1.710734.3.579. 1949 Unknown [id number] 2.16.840.1.628013.3.579.2 1949 Unknown [id number] 2.16.840.1.095622.3.579.2 1949 Unknown [id number] 2.16.840.1.759332.3.579.2 1949 Unknown [id number] 2.16.840.1.557563.3.579.2 1949 Unknown [id number] 2.16.840.1.664806.3.579.2 1949 Unknown [id number] 2.16.840.1.966264.3.579.2 1949 Unknown [id number] 2.16.840.1.219394.3.579.2 1949 Unknown [id number] 2.16.840.1.755490.3.579.2 1949 Unknown [id number] 2.16.840.1.358762.3.579.2.727 1949 Unknown [id number] 2.16.840.1.244399.3.579.2.727 1949 Unknown [id number] 2.16.840.1.663272.3.579.2.727 1949 Unknown [id number] 2.16.840.1.545706.3.579.2.727 1949 Unknown [id number] 2.16.840.1.075857.3.579.2.727 1949 Unknown [id number] 2.16.840.1.189874.3.579.2.727 1949 Unknown [id number] 2.16.840.1.580991.3.579.2.727 1949 Unknown [id number] 2.16.840.1.343867.3.579.2.727 1949 Unknown [id number] 2.16.840.1.301045.3.579.2.727 Unknown [id number] 2.16.840.1.968655.3.579.2.531 Unknown [id number] 2.16.840.1.386669.3.579.2.531 Unknown [id number] 2.16.840.1.847093.3.579.2.531 Unknown [id number] 2.16.840.1.076761.3.579.2.531 Unknown [id number] 2.16.840.1.854049.3.579.2.531 Social History Date Type Detail Facility Start: 02-12-2023 Never a smoker Never a smoker -[facility] 250 DO Work Phone: Start: 12-10-2020 End: 03-03-2023 Tobacco smoking status Never smoked tobacco (finding) [facility] Comment on above: denies use Tobacco smoking status Never [facility] Comment on above: denies use Start: 02-12-2023 Sex Assigned At Female F [facility] Start: 1950 Sex Assigned At Female F [facility] Start: 02-12-2023 Tobacco use and exposure Smokeless tobacco non-user [facility] Work Phone: Start: 02-12-2023 Alcohol intake Current drinke r of alcohol (finding) [facility] Work Phone: Start: 02-12-2023 Alcohol Comment social [facility] Work Phone: Start: 1950 Sex Assigned At Not on file [facility] Work Phone: Start: 02-02-2023 End: 02-12-2023 Exposure to SARS-CoV-2 (event) Not sure [facility] Medical Equipment Procedure Code Equipment Code [...] 11, Dx: E11.9 Directions: BID, [id number], Supply, 165, cm, 06/11/22 9:10:00 EDT, Height/Length Dosing, 97.6, kg, 06/11/22 9:10:00 EDT, Weight Dosing Start: 06-13-2022 Lancets, See Instructions, 100 EA, 11, Dx: E11.9 Directions: BID, [facility], Supply, 166, cm, 05/10/21 8:27:00 EST, Height/Length Dosing, 92.8, kg, 05/10/21 8:27:00 EST, Weight Dosing Start: 05-10-2021 Test strips, See Instructions, 100 EA, 11, Dx: E11.9 Directions: BID, [facility] #[id number], Supply, 165, cm, 06/11/22 9:10:00 EDT, Height/Length Dosing, 97.6, kg, 06/11/22 9:10:00 EDT, Weight Dosing Start: 06-13-2022 CL CLOSURE DEVIC E EXOSEAL 6F FDA Start: 08-11-2018 CL STENT JIE 2.5 X 08 FDA Start: 08-11-2018 Multiple periphe ral artery stent, bare-metal ()[id number] FDA Start: 04-07-2022 Lancets, See Instructions, 100 EA, 11, Dx: E11.9 Directions: BID, [facility], Supply, 166, cm, 05/10/21 8:27:00 EST, Height/Length Dosing, 92.8, kg, 05/10/21 8:27:00 EST, Weight Dosing Start: 05-10-2021 Test strips, See Instructions, 100 EA, 11, Dx: E11.9 Directions: BID, [facility] #[id number], Supply, 165, cm, 06/11/22 9:10:00 EDT, Height/Length Dosing, 97.6, kg, 06/11/22 9:10:00 EDT, Weight Dosing Start: 06-13-2022 Lancets, See Instructions, 100 EA, 11, Dx: E11.9 Directions: BID, [facility], Supply, 166, cm, 05/10/21 8:27:00 EST, Height/Length Dosing, 92.8, kg, 05/10/21 8:27:00 EST, Weight Dosing Start: 05-10-2021 Test strips, See Instructions, 100 EA, 11, Dx: E11.9 Directions: BID, [facility] #[id number], Supply, 165, cm, 06/11/22 9:10:00 EDT, Height/Length Dosing, 97.6, kg, 06/11/22 9:10:00 EDT, Weight Dosing Start: 06-13-2022 Lancets, See Instructions, 100 EA, 11, Dx: E11.9 Directions: BID, [facility], Supply, 166, cm, 05/10/21 8:27:00 EST, Height/Length Dosing, 92.8, kg, 05/10/21 8:27:00 EST, Weight Dosing Start: 05-10-2021 Test strips, See Instructions, 100 EA, 11, Dx: E11.9 Directions: BID, [facility] #[id number], Supply, 165, cm, 06/11/22 9:10:00 EDT, Height/Length Dosing, 97.6, kg, 06/11/22 9:10:00 EDT, Weight Dosing Start: 06-13-2022 Lancets, See Instructions, 100 EA, 11, Dx: E11.9 Directions: BID, [facility], Supply, 166, cm, 05/10/21 8:27:00 EST, Height/Length Dosing, 92.8, kg, 05/10/21 8:27:00 EST, Weight Dosing Start: 05-10-2021 Test strips, See Instructions, 100 EA, 11, Dx: E11.9 Directions: BID, [facility] #[id number], Supply, 165, cm, 06/11/22 9:10:00 EDT, Height/Length Dosing, 97.6, kg, 06/11/22 9:10:00 EDT, Weight Dosing Start: 06-13-2022 Lancets, See Instructions, 100 EA, 11, Dx: E11.9 Directions: BID, [facility], Supply, 166, cm, 05/10/21 8:27:00 EST, Height/Length Dosing, 92.8, kg, 05/10/21 8:27:00 EST, Weight Dosing Start: 05-10-2021 Test strips, See Instructions, 100 EA, 11, Dx: E11.9 Directions: BID, [facility] #[id number], Supply, 165, cm, 06/11/22 9:10:00 EDT, Height/Length Dosing, 97.6, kg, 06/11/22 9:10:00 EDT, Weight Dosing Start: 06-13-2022 Lancets, See Instructions, 100 EA, 11, Dx: E11.9 Directions: BID, [facility], Supply, 166, cm, 05/10/21 8:27:00 EST, Height/Length Dosing, 92.8, kg, 05/10/21 8:27:00 EST, Weight Dosing Start: 05-10-2021 Test strips, See Instructions, 100 EA, 11, Dx: E11.9 Directions: BID, [facility] #[id number], Supply, 165, cm, 06/11/22 9:10:00 EDT, Height/Length Dosing, 97.6, kg, 06/11/22 9:10:00 EDT, Weight Dosing Start: 06-13-2022 Lancets, See Instructions, 100 EA, 11, Dx: E11.9 Directions: BID, [facility], Supply, 166, cm, 05/10/21 8:27:00 EST, Height/Length Dosing, 92.8, kg, 05/10/21 8:27:00 EST, Weight Dosing Start: 05-10-2021 Test strips, See Instructions, 100 EA, 11, Dx: E11.9 Directions: BID, [facility] #[id number], Supply, 165, cm, 06/11/22 9:10:00 EDT, Height/Length Dosing, 97.6, kg, 06/11/22 9:10:00 EDT, Weight Dosing Start: 06-13-2022 Lancets, See Instructions, 100 EA, 11, Dx: E11.9 Directions: BID, [facility], Supply, 166, cm, 05/10/21 8:27:00 EST, Height/Length Dosing, 92.8, kg, 05/10/21 8:27:00 EST, Weight Dosing Start: 05-10-2021 Test strips, See Instructions, 100 EA, 11, Dx: E11.9 Directions: BID, [facility] #[id number], Supply, 165, cm, 06/11/22 9:10:00 EDT, Height/Length Dosing, 97.6, kg, 06/11/22 9:10:00 EDT, Weight Dosing Start: 06-13-2022 Lancets, See Instructions, 100 EA, 11, Dx: E11.9 Directions: BID, [facility], Supply, 166, cm, 05/10/21 8:27:00 EST, Height/Length Dosing, 92.8, kg, 05/10/21 8:27:00 EST, Weight Dosing Start: 05-10-2021 Test strips, See Instructions, 100 EA, 11, Dx: E11.9 Directions: BID, [facility] #[id number], Supply, 165, cm, 06/11/22 9:10:00 EDT, Height/Length Dosing, 97.6, kg, 06/11/22 9:10:00 EDT, Weight Dosing Start: 06-13-2022 Lancets, See Instructions, 100 EA, 11, Dx: E11.9 Directions: BID, [facility], Supply, 166, cm, 05/10/21 8:27:00 EST, Height/Length Dosing, 92.8, kg, 05/10/21 8:27:00 EST, Weight Dosing Start: 05-10-2021 Test strips, See Instructions, 100 EA, 11, Dx: E11.9 Directions: BID, [facility] #[id number], Supply, 165, cm, 06/11/22 9:10:00 EDT, Height/Length Dosing, 97.6, kg, 06/11/22 9:10:00 EDT, Weight Dosing Start: 06-13-2022 Lancets, See Instructions, 100 EA, 11, Dx: E11.9 Directions: BID, [facility], Supply, 166, cm, 05/10/21 8:27:00 EST, Height/Length Dosing, 92.8, kg, 05/10/21 8:27:00 EST, Weight Dosing Start: 05-10-2021 Test strips, See Instructions, 100 EA, 11, Dx: E11.9 Directions: BID, [facility] #[id number], Supply, 165, cm, 06/11/22 9:10:00 EDT, Height/Length [...] 11, Dx: E11.9 Directions: BID, [facility] #[id number], Supply, 165, cm, 06/11/22 9:10:00 EDT, Height/Length Dosing, 97.6, kg, 06/11/22 9:10:00 EDT, Weight Dosing Start: 06-13-2022 Lancets, See Instructions, 100 EA, 11, Dx: E11.9 Directions: BID, [facility], Supply, 166, cm, 05/10/21 8:27:00 EST, Height/Length Dosing, 92.8, kg, 05/10/21 8:27:00 EST, Weight Dosing Start: 05-10-2021 Test strips, See Instructions, 100 EA, 11, Dx: E11.9 Directions: BID, [facility] #[id number], Supply, 165, cm, 06/11/22 9:10:00 EDT, Height/Length Dosing, 97.6, kg, 06/11/22 9:10:00 EDT, Weight Dosing Start: 06-13-2022 Lancets, See Instructions, 100 EA, 11, Dx: E11.9 Directions: BID, [facility], Supply, 166, cm, 05/10/21 8:27:00 EST, Height/Length Dosing, 92.8, kg, 05/10/21 8:27:00 EST, Weight Dosing Start: 05-10-2021 Test strips, See Instructions, 100 EA, 11, Dx: E11.9 Directions: BID, [facility] #[id number], Supply, 165, cm, 06/11/22 9:10:00 EDT, Height/Length Dosing, 97.6, kg, 06/11/22 9:10:00 EDT, Weight Dosing Start: 06-13-2022 Lancets, See Instructions, 100 EA, 11, Dx: E11.9 Directions: BID, [facility], Supply, 166, cm, 05/10/21 8:27:00 EST, Height/Length Dosing, 92.8, kg, 05/10/21 8:27:00 EST, Weight Dosing Start: 05-10-2021 Test strips, See Instructions, 100 EA, 11, Dx: E11.9 Directions: BID, [facility] #[id number], Supply, 165, cm, 06/11/22 9:10:00 EDT, Height/Length Dosing, 97.6, kg, 06/11/22 9:10:00 EDT, Weight Dosing Start: 06-13-2022 Lancets, See Instructions, 100 EA, 11, Dx: E11.9 Directions: BID, [facility], Supply, 166, cm, 05/10/21 8:27:00 EST, Height/Length Dosing, 92.8, kg, 05/10/21 8:27:00 EST, Weight Dosing Start: 05-10-2021 Test strips, See Instructions, 100 EA, 11, Dx: E11.9 Directions: BID, [facility] #[id number], Supply, 165, cm, 06/11/22 9:10:00 EDT, Height/Length Dosing, 97.6, kg, 06/11/22 9:10:00 EDT, Weight Dosing Start: 06-13-2022 CL CLOSURE DEVIC E EXOSEAL 6F FDA Start: 08-11-2018 CL STENT JIE 2.5 X 08 FDA Start: 08-11-2018 Functional Status Date Assessment Result Facility 04-10-2023 Functional Status N/A [facility] 03-20-2023 Functional Status N/A [facility] 03-04-2023 Functional Status N/A [facility] 02-16-2023 Functional Status N/A [facility] 01-26-2023 Functional Status N/A [facility] 01-06-2023 Functional Status N/A [facility] 09-10-2022 Functional Status N/A [facility] 06-11-2022 Functional Status N/A [facility] 04-07-2022 Functional status Patient at [facility] Work Phone: 11-28-2021 N/A [facility] 10-28-2021 No [facility] Mental Status Date Assessment Result Facility 04-07-2022 Cognitive function Cognitive Sta tus Patient at Baseline [facility] Work Phone: Clinical Notes 01-27-2022 to 04-10-2023 Note Date & Type Note Facility 04-10-2023 Evaluation + Plan note Extrac beatriz from: Title:ED Note Author:Erick BARTH, Radhames Crystal te:04/10/23 Bronchitis (J40: Bronchitis, not specified as acute or chronic) Orders: albuterol, 2 puff(s), Inhalation, q6hr Wheezing, 8.5 gm, Refill(s) 0, [facility] #[id number], 165, cm, 04/10/23 9:26:00 EST, Height/Length Dosing, 96.9, kg, 04/10/23 9:26:00 EST, Weight Dosing azithromycin, = 1 packet(s), Oral, As Directed, as directed on package labeling, X 5 day(s), # 6 tab(s), Refills(s) 0, Pharmacy: [facility] #[id number], 165, cm, 04/10/23 9:26:00 EST, Height/Length Dosing, 96.9, kg, 04/10/23 9:26:00 EST, Weight Dosing predniSONE, 60 mg = 3 tab(s), Oral, Daily, X 7 day(s), # 21 tab(s), Refills(s) 0, Pharmacy: [facility] #[id number], 165, cm, 04/10/23 9:26:00 EST, Height/Length Dosing, 96.9, kg, 04/10/23 9:26:00 EST, Weight Dosing XR Chest 2 Views Future Appointments Appointment Date:07/28/2023 08:00:00 AM Scheduled Provider:Christopher WELLS DO, FAAFP Location:[facility] Appointment Type: Open Appointment Date:02/01/2024 08:00:00 AM Scheduled Provider: Location:[facility] Appointment Type:FM Medicare Wellness Subsequent Future Scheduled Tests Laboratory* HgbA1c 03/27/22 * HgbA1c 06/25/22 * HCV Antibody RFX to Quant PCR 01/26/23 [facility]01-26-2024 Hospital Discharge instructions Patient Education [...] condition. Follow these instructions at home: Take tyon-qgd-urcrstz and prescription medicines only as told by [...] and water are not available, use hand checkroom attendant. Avoid contact with people who have cold [...] it is easier to cough up. Take bxqz-mfp-yhdqbqj and prescription medicines only as told by [...] Document Reviewed: 07/03/2021 Elsevier Patient Education 2022 [employer]. Follow Up Care 04/10/2023 09:14:32 With:Christopher WELLS Address: [address], [place] [address]- Business (1) When:04/13/2023 11:17:35 [facility]01-05-2024 Hospital Discharge instructions Patient Education [...] plan? Your health care provider or certified coder can help you make a plan [...] (heat stroke). Where to find more information [place] [employer]: www.diabetes.org Summary Exercising regularly is important for overall health, especially for people who have diabetes mellitus. Exercising has many health benefits. It increases muscle strength and bone density and reduces bodyfat and stress. It also lowers and controls blood glucose. Your health care provider or certified coder can help you make an activity [...] provider. Document Revised: 11/28/2019 Document Reviewed: 11/28/2019 [employer] Patient Education 2022 [employer]. Follow Up Care 12/18/2022 08:59:12 With:Christopher WELLS DO, FAAFP, FAM, PED Address: [address] [place] [address] [place] [address]- When:Within 4 Month(s) [facility] 12-20-2023 Evaluation + [...] 09:00:00 AM Scheduled Provider:Christopher WELLS DO, FAAFP Location[facility] Appointment Type: Open Appointment Date:03/23/2023 08:30:00 AM Scheduled Provider:Mara Pastor PA-C Location:[facility] Appointment Type:Pain Management - Follow Up (FT) Appointment Date:02/01/2024 08:00:00 AM Scheduled Provider: Location:[facility] Appointment Type:FM Medicare Wellness Subsequent Future Scheduled Tests Laboratory* HgbA1c 03/27/22 * HgbA1c 06/25/22 * HCV Antibody RFX to Quant PCR 01/26/23 [facility]12-20-2023 Note [id number] NoteDiagnosis: M16.12, left hip [...] procedure, and agrees to continue currently prescribed/recommended therapies.[facility] Comment on above:Result Comment: Electronically Signed By: Nicola Tapia DO.br\Date and Time Signed: 03/04/23 09:06 [id number] Evaluation note* Encounter Date Diagnosis Assessment Notes [...] sooner should she deteriorate in any way IFTTT Other [id number] History of Present illness Narrative* Fariha Guidry [...] I suggested that she discuss with her lute packer or applier the addition of CGEQ0hbsgqjevp or GLP agonists. Reviewed with the patient [...] complications. 5. Diabetes, managed by endocrinology in [place]. A1c remains above target, advised patient to discuss with the lute packer or applier more aggressive therapy. 6. Hypertension completely under control. 7. High-risk medication with Xarelto, so far well-tolerated. Takes baby aspirin twice weekly 8. Stage III chronic kidney disease to be monitored closely, she follow with nephrology 9. intermittent claudications and PAD followed by vascular surgery in [place]. Patient is scheduled next week to have revascularization for intermittent claudication 10. Sleep apnea not consistently using CPAP machine. Encouraged the patient to utilize it daily. F[facility] Guidry [facility], [facility] Review of Systems All other systems reviewed [...] tablet, Rfl: 3 Assessment/Plan 1. Atherosclerosis of [place] coronary artery of [place] heart without angina pectoris Follow Up In Cardiology atorvastatin (Lipitor) 40 mg tablet Alanine Aminotransferase Aspartate Aminotransferase Lipid Panel 2. Status post coronary angioplasty Follow Up In Cardiology 3. Essential hypertension Follow Up In Cardiology 4. Hyperlipidemia, unspecified hyperlipidemia type atorvastatin (Lipitor) 40 mg tablet Alanine Aminotransferase Aspartate Aminotransferase Lipid Panel 5. PVD (peripheral vascular disease) ([facility]) 6. Stage 3 chronic kidney disease, unspecified whether stage 3a or 3b CKD ([facility]) 7. Sleep apnea, unspecified type [facility] Work Phone: 1(934) 351-945811-30-2023 Instructions* Patient Instructions* Saloni Benavides LPN - [...] Follow up 6 months documented in this encounterOhio[facility] Work Phone: [phone]) 770-522111-13-2023 Hospital Discharge instructions Patient Education 01/26/2023 09:01:27 [...] Carrots. Green beans. Tomatoes. Peppers. Onions. Cucumbers. [place] sprouts. Grains Whole grains, such as whole-wheat [...] meet with a certified diabetes care and special education teachers? Do I need to meet with a dietitian? What number can I call if I have questions? When are the best times to check my blood glucose? Where to find more information: [place] Citizen Diabetes Association: diabetes.org Academy of Nutrition and Dietetics: eatright.org National Mentor of Diabetes and Digestive and Kidney Diseases: [...] Document Reviewed: 10/03/2020 Elsevier Patient Education 2023 [employer]. 01/26/2023 09:01:11 Fall Prevention in the Home, Adult, Mxnb-mt-Ytdz Fall Prevention in the Home, Adult Falls [...] Keep items that you use often in rvgn-bs-uebea places. Lower the shelves around your home [...] of the way. Do not use floor iranian or wax that makes floors slippery. What [...] for Disease Control and PreventionKELLEY: www.cdc.gov National Mentor on Aging: www.[place].nih.gov Contact a doctor if: [...] provider. Document Revised: 12/02/2021 Document Reviewed: 10/03/2020 [employer] Patient Education 2022 [employer]. 01/26/2023 09:01:04 Hepatitis C, Pafr-mv-Gjgz Hepatitis C Hepatitis C is a liver [...] Follow these instructions at home: Medicines Take cldl-xff-edrlqyu and prescription medicines only as told by your doctor. If you were given an antiviral medicine, take it as told by your doctor. Do not stop using the antiviral even if you start to feel better. Do not take any new medicines unless your doctor says that this is okay. This includes dvsc-lhn-ttnujra medicines and supplements. Activity Rest as needed. [...] not have soap and water, use hand checkroom attendant. Cover any cuts or open sores on [...] provider. Document Revised: 01/17/2021 Document Reviewed: 01/17/2021 [employer] Patient Education 2022 [employer]. 01/26/2023 09:00:41 Exercising to Lose Weight Exercising [...] your health care provider or diet and forest resource specialist (dietitian). This may include: ?Eating fewer [...] provider. Document Revised: 04/28/2021 Document Reviewed: 04/28/2021 [employer] Patient Education 2022 [employer]. 01/26/2023 09:00:38 Cooking With Less Salt [...] salt. Use sodium-free baking soda when baking. [place], braise, or roast foods to add flavor with less salt. Avoid adding salt to pasta, rice, or hot cereals. Drain and rinse canned vegetables, beans, and meat before use. Avoid adding salt when cooking sweets and desserts. Cook with low-sodium ingredients. What foods are high in sodium? Vegetables Regular canned vegetables (not low-sodium or reduced-sodium). Sauerkraut, pickled vegetables, and relishes. Olives. Comoran fries. Onion rings. Regular canned tomato sauce [...] Soy milk. Yogurt. Low-sodium cheeses, such as Belarusian, Maricao Teodoro, mozzarella, and ricotta. Sherbet or ice [...] foods you can pair it with. Herbs [place] leaves Soups, meat and vegetable dishes, and spaghetti sauce. Basil Moldovan dishes, soups, pasta, and fish dishes. Cilantro Meat, poultry, and vegetable dishes. Eldred powder Marinades and Dominican dishes. Chives Salad dressings and potato dishes. Cumin Dominican dishes, couscous, and meat dishes. Dill Fish dishes, sauces, and salads. Fennel Meat and vegetable dishes, breads, and cookies. Garlic (do not use garlic salt) Moldovan dishes, meat dishes, salad dressings, and sauces. Marjoram Soups, potato dishes, and meat dishes. Oregano Pizza and spaghetti sauce. Parsley Salads, soups, pasta, and meat dishes. Vanita Moldovan dishes, salad dressings, soups, and red meats. [...] provider. Document Revised: 02/22/2020 Document Reviewed: 02/22/2020 [employer] Patient Education 2022 [employer]. 01/26/2023 09:00:36 BMI for Adults BMI [...] numbers. This can be done either in Maltese (U.S.) or metric measurements. Note that charts and online BMI calculators are available to help you find your BMI quickly and easily without having to do these calculations yourself. To calculate your BMI in Maltese (U.S.) measurements: 1.Measure your weight in pounds [...] Centers for Disease Control and Prevention: www.cdc.gov [place] Citizen Heart Association: www.heart.org National Heart, Lung, and Blood Mentor: www.nhlbi.nih.gov Summary Body mass index (BMI) is a number that is calculated from a person's weight and height. BMI may help estimate how much of a person's weight is composed of fat. BMI can help identify thosewho may be at higher risk for certain medical problems. BMI can be measured using Maltese measurements or metric measurements. BMI charts are used to identify whether you are underweight, normal weight, overweight, or obese. This information is not intended to replace advice given to you by your health care provider. Make sure you discuss any questions you have with your health care provider. Document Revised: 11/23/2019 Document Reviewed: 09/30/2019 [employer] Patient Education 2022 [employer]. [facility] 10-24-2023 Evaluation + [...] Appointments Appointment Date:01/26/2023 08:00:00 AM Scheduled Provider: Location[facility] Appointment Type: Medicare Wellness Subsequent Appointment Date:03/12/2023 08:00:00 AM Scheduled Provider:Linda Solorio CNP Location[facility] Appointment Type:BADH Follow Up Appointment Date:03/20/2023 09:00:00 AM Scheduled Provider:Christopher WELLS DO, FAAFP Location:[facility] Appointment Type: Open Future Scheduled Tests Laboratory* HgbA1c 03/27/22 * HgbA1c 06/25/22 [facility]10-23-2023 Evaluation note* Encounter Date Diagnosis [...] understands and is agreement with that plan. IFTTT Other 10-11-2023 NoteMicrobiology PROCEDURE: Wound Culture [R1] [...] Locations R1: This test was performed at: [facility], [address] [place] [address], [id number] , [place], [facility]oW[facility] HospitalComment on above:Performed By: #### [id number] ####[facility] [address] [place], [place] [id number] Evaluation note* Encounter Date Diagnosis Assessment Notes [...] to see her back in 2 months. IFTTT Other 08-21-2023 Evaluation note* Encounter Date Diagnosis [...] call us with any issues or concerns. IFTTT Other 06-28-2023 Hospital Discharge instructions Patient Education [...] oral rehydration solution (ORS). This is an uxrm-fbv-friitom medicine that helps return your body to [...] drinks, sports drinks, and soda. Eat bland, evsh-pl-muwulq foods in small amounts as you are able. These foods include bananas, applesauce, rice, lean meats, toast, and crackers. Avoid alcohol. Avoid spicy or fatty foods. Medicines Take lvxa-ura-liqodse and prescription medicines only as told by your health care provider. If you were prescribed an antibiotic medicine, take it as told by your health care provider. Do notstop using the antibiotic even if you start to feel better. General instructions Wash your hands often using soap and water. If soap and water are not available, use a hand checkroom attendant. Others in the household should wash their [...] soap and water are not available, usehand checkroom attendant. Contact a health care provider if your diarrhea gets worse or you have new symptoms. Get help right away if you have signs of dehydration. This information is not intended to replace advice given to you by your health care provider. Make sure you discuss any questions you have with your health care provider. Document Revised: 09/11/2021 Document Reviewed: 09/11/2021 [employer] Patient Education 2022 [employer]. 09/10/2022 07:52:51 High-Fiber Eating Plan High-Fiber Eating [...] Bulgur wheat. Millet. Quinoa. Bran muffins. Popcorn. [place] wafer crackers. Meats and other proteins [place] beans, kidney beans, and chase beans. Soybeans. [...] Cream cheese. Sour cream. Fats and oils Le[place]. Beverages Soft drinks. Other foods Cakes and [...] provider. Document Revised: 07/05/2020 Document Reviewed: 07/05/2020 Else[employer] Patient Education 2022 [employer]. Follow Up Care 06/11/2022 09:32:08 With:Linda Solorio CNP Address: When:6 months [facility] 03-29-2023 Hospital Discharge [...] per serving. Talk with a diet and forest resource specialist (dietitian) if you have questions about [...] Bulgur wheat. Millet. Quinoa. Bran muffins. Popcorn. [place] wafer crackers. Meats and other proteins [place], kidney, and chase beans. Soybeans. Split peas. [...] Cream cheese. Sour cream. Fats and oils Le[place]. Beverages Soft drinks. Other foods Cakes and [...] 03/02/2006 Document Revised: 01/04/2018 Document Reviewed: 01/04/2018 S[employer] Patient Education 2020 [employer]. 06/11/2022 09:15:20 Hemorrhoids Hemorrhoids Hemorrhoids are swollen [...] 3 times a day. General instructions Take nzvt-eak-jqdewqi and prescription medicines only as told by [...] 02/27/2001 Document Revised: 07/29/2019 Document Reviewed: 07/22/2018 [employer] Patient Education 2020 [employer]. 06/11/2022 09:15:19 Colon Polyps Colon Polyps [...] 11/26/2004 Document Revised: 06/17/2018 Document Reviewed: 06/17/2018 [employer] Patient Education 2020 [employer]. Follow Up Care 06/09/2022 16:22:13 With:Linda Solorio CNP Address: When:3 months [facility] 02-20-2023 Evaluation note* Encounter Date Diagnosis Assessment Notes Treatment Notes Treatment Clinical Notes Apr, Peripheral vascular disease, unspecified (ICD-10 - I73.9) Apr, Other specified postprocedural states (ICD-10 - Z98.890) Apr, Other Peripheral arterial occlusive disease She has a good clinical outcome. I will see her back in 6 months with ABIs on that day. She will continue her current medical regimen. IFTTT Other 01-24-2023 Evaluation note* Encounter Date Diagnosis Assessment Notes Treatment Notes Treatment Clinical Notes Mar, Post-op pain (ICD-10 - G89.18) IFTTT Other 01-16-2023 Evaluation + Plan note Diagnostic Tests Pending * PTH Intact 03/31/22 * Immunofixation Serum 03/31/22 * Immunofixation, Urine 03/31/22 * C3 Complement 03/31/22 * C4 Complement 03/31/22 * Free K+L Lt Chains,Qn,S 03/31/22 Future Scheduled Tests Laboratory* HgbA1c 03/27/22 * HgbA1c 06/25/22 [facility]01-16-2023 Evaluation note* Encounter Date Diagnosis [...] of both lower extremities (ICD-10 - I73.9) IFTTT Other 01-12-2023 Evaluation + Plan note Future Scheduled Tests Laboratory* HgbA1c 03/27/22 * HgbA1c 06/25/22 [facility]11-14-2022 Evaluation note* Encounter Date Diagnosis [...] in 2 months time with the ABIs. IFTTT Other Evaluation + Plan note Future Appointments Appointment Date:08/27/2021 09:30:00 AM Scheduled Provider: Location:.DIETARY Appointment Type:DM Diabetes Initial drawing tender 59 (F Appointment Date:10/16/2021 01:00:00 PM Scheduled Provider: Location:.DIETARY Appointment Type:DM Diabetes Group () [facility] Evaluation + Plan note Future Appointments Appointment Date:10/15/2021 09:00:00 AM Scheduled Provider: Location:.DIETARY Appointment Type:DM Diabetes Group () Appointment Date:10/28/2021 09:45:00 AM Scheduled Provider:Charis Daniel MD Location[facility] Appointment Type:Vascular New Patient (FT) Appointment Date:12/16/2021 09:40:00 AM Scheduled Provider:Christopher WELLS DO, FAAFP Location:[facility] Appointment Type: Open Future Scheduled Tests Laboratory* HgbA1c 12/25/21 * HgbA1c 03/27/22 * HgbA1c 06/25/22 Radiology* US PVR Lower EXT Complete Bilat [facility] Future Appointments Appointment Date:10/15/2021 09:00:00 AM Scheduled Provider: Location:.DIETARY Appointment Type:DM Diabetes Group (FT) Appointment Date:10/28/2021 09:45:00 AM Scheduled Provider:Charis Daniel MD Location[facility] Appointment Type:Vascular New Patient (FT) Appointment Date:12/16/2021 09:40:00 AM Scheduled Provider:Christopher WELLS DO, FAAFP Location:[facility] Appointment Type: Open Future Scheduled Tests Laboratory* HgbA1c 12/25/21 * HgbA1c 03/27/22 * HgbA1c 06/25/22 [facility] Future Appointments Appointment Date:12/16/2021 09:40:00 AM Scheduled Provider:Christopher WELLS DO, FAAFP Location:[facility] Appointment Type:FM Open Appointment Date:01/02/2022 01:00:00 PM Scheduled Provider: [facility]DM Diabetes Group (FT) Future Scheduled Tests Laboratory* HgbA1c 12/25/21 * HgbA1c 03/27/22 * HgbA1c 06/25/22 Radiology* US LE Venous Duplex Insufficiency Bilat 10/28/21 * CTA Abd Aorto-bilat/ iliofemoral runoff 10/28/21 [facility] Future Appointments Appointment Date:12/16/2021 09:40:00 AM Scheduled Provider:Christopher WELLS DO, FAAFP Location:[facility] Appointment Type: Open Appointment Date:01/02/2022 01:00:00 PM Scheduled Provider: [facility] Type:DM Diabetes Group (FT) Appointment Date:02/24/2022 09:00:00 AM Scheduled Provider:Charis Daniel MD Location[facility] Appointment Type:Vascular Follow Up (FT) Future Scheduled Tests Laboratory* HgbA1c 12/25/21 * HgbA1c 03/27/22 * HgbA1c 06/25/22 [facility] Future Appointments Appointment Date:02/24/2022 09:00:00 AM Scheduled Provider:Charis Daniel MD Location[facility] Appointment Type:Vascular Follow Up (FT) Future Scheduled Tests Laboratory* HgbA1c 12/25/21 * HgbA1c 03/27/22 * HgbA1c 06/25/22 [facility] Future Appointments Appointment Date:02/24/2022 09:00:00 AM Scheduled Provider:Charis Daniel MD Location[facility] Appointment Type:Vascular Follow Up (FT) Future Scheduled Tests Laboratory* HgbA1c 03/27/22 * HgbA1c 06/25/22 [facility] Future Appointments Appointment Date:05/21/2022 01:05:00 PM Scheduled Provider: Location:[facility] Appointment Type:Surgery FT Diagnostic Tests Pending * O & P Exam, Routine 05/08/22 * Giardia lamblia, Direct Detection EIA 05/08/22 Future Scheduled Tests Laboratory* HgbA1c 03/27/22 * HgbA1c 06/25/22 [facility] Future Appointments Appointment Date:09/10/2022 08:00:00 AM Scheduled Provider:Linda Solorio CNP Location[facility] Appointment Type:BAD Follow Up Future Scheduled Tests Laboratory* HgbA1c 03/27/22 * HgbA1c 06/25/22 [facility] Evaluation + Plan note Future Appointments Appointment Date:03/12/2023 08:00:00 AM Scheduled Provider:Linda Solorio CNP Location:[facility] Appointment Type:[facility] Follow Up Future Scheduled Tests Laboratory* HgbA1c 03/27/22 * HgbA1c 06/25/22 [facility] Evaluation + Plan note Future Appointments Appointment Date:12/18/2022 08:20:00 AM Scheduled Provider:Christopher WELLS DO, FAAFP Location[facility] Appointment Type: Open Appointment Date:01/26/2023 08:00:00 AM Scheduled Provider: Location:[facility] Appointment Type: Medicare Wellness Subsequent Appointment Date:03/12/2023 08:00:00 AM Scheduled Provider:Linda Solorio CNP Location:[facility] Appointment Type:[facility] Follow Up Future Scheduled Tests Laboratory* HgbA1c 03/27/22 * HgbA1c 06/25/22 [facility] Future App[facility]ments Appointment Date:01/06/2023 08:30:00 AM Scheduled Provider:Gary Cerda MD Location:[facility] Appointment Type:Pain Management - New (FT) Appointment Date:01/26/2023 08:00:00 AM Scheduled Provider: Location:[facility] Appointment Type: Medicare Wellness Subsequent Appointment Date:03/12/2023 08:00:00 AM Scheduled Provider:Linda Solorio CNP Location:[facility] Appointment Type:BAD Follow Up Appointment Date:03/20/2023 09:00:00 AM Scheduled Provider:Christopher WELLS DO, FAAFP Location:[facility] Appointment Type:FM Open Future Scheduled Tests Laboratory* HgbA1c 03/27/22 * HgbA1c 06/25/22 [facility] Future Appointments Appointment Date:01/19/2023 09:30:00 AM Scheduled Provider: [facility] Type:WC Assessment (FT) Appointment Date:01/26/2023 08:00:00 AM Scheduled Provider: Location:[facility] Appointment Type: Medicare Wellness Subsequent Appointment Date:01/27/2023 02:00:00 PM Scheduled Provider:Denton Mares DPM [facility] Type:WC Follow Up Visit (FT) Appointment Date:02/02/2023 09:45:00 AM Scheduled Provider: Location:[facility] Appointment Type:Surgery FT Appointment Date:02/17/2023 08:45:00 AM Scheduled Provider:Gary Cerda MD Location:[facility] Appointment Type:Pain Management - Follow Up (FT) Appointment Date:03/12/2023 08:00:00 AM Scheduled Provider:Linda Solorio CNP Location:[facility] Appointment Type:BAD Follow Up Appointment Date:03/20/2023 09:00:00 AM Scheduled Provider:Christopher WELLS DO, FAAFP Location:[facility] Appointment Type: Open Future Scheduled Tests Laboratory* HgbA1c 03/27/22 * HgbA1c 06/25/22 [facility] Future Appointments Appointment Date:01/26/2023 08:00:00 AM Scheduled Provider: Location:[facility] Appointment Type:FM Medicare Wellness Subsequent Appointment Date:01/27/2023 02:00:00 PM Scheduled Provider:Denton Mares DPM [facility]oint[facility] Type:WC Follow Up Visit (FT) Appointment Date:02/02/2023 09:45:00 AM Scheduled Provider: Location:[facility] Appointment Type:Surgery FT Appointment Date:02/17/2023 08:45:00 AM Scheduled Provider:Gary Cerda MD Location:[facility] Appointment Type:Pain Management - Follow Up (FT) Appointment Date:03/12/2023 08:00:00 AM Scheduled Provider:Linda Solorio CNP Location:[facility] Appointment Type:BAD Follow Up Appointment Date:03/20/2023 09:00:00 AM Scheduled Provider:Christopher WELLS DO, FAAFP [facility] Appointment Type:FM Open Future Scheduled Tests Laboratory* HgbA1c 03/27/22 * HgbA1c 06/25/22 [facility] Future Appointments Appointment Date:01/27/2023 02:00:00 PM Scheduled Provider:Denton Mares DPM [facility] Type:WC Follow Up Visit (FT) Appointment Date:02/02/2023 09:45:00 AM Scheduled Provider[facility] App[facility] Type:Surgery FT Appointment Date:02/17/2023 08:45:00 AM Scheduled Provider:Gary Cerda MD Location:[facility] Appointment Type:Pain Management - Follow Up (FT) Appointment Date:03/12/2023 08:00:00 AM Scheduled Provider:Linda Solorio CNP Location:[facility] Appointment Type:BAD Follow Up Appointment Date:03/20/2023 09:00:00 AM Scheduled Provider:Christopher WELLS DO, FAAFP Location[facility] Appointment Type:FM Open Appointment Date:02/01/2024 08:00:00 AM Scheduled Provider: Location:[facility] Appointment Type:FM Medicare Wellness Subsequent Future Scheduled Tests Laboratory* HgbA1c 03/27/22 * HgbA1c 06/25/22 * HCV Antibody RFX to Quant PCR 01/26/23 [facility] Evaluation + Plan note Future Appointments Appointment Date:02/02/2023 09:45:00 AM Scheduled Provider: Location[facility] Appointment Type:Surgery FT Appointment Date:02/10/2023 02:30:00 PM Scheduled Provider:Denton Mares DPM [facility] Type:WC Follow Up Visit (FT) Appointment Date:02/17/2023 08:45:00 AM Scheduled Provider:Gary Cerda MD Location:[facility] Appointment Type:Pain Management - Follow Up (FT) Appointment Date:03/12/2023 08:00:00 AM Scheduled Provider:Linda Solorio CNP Location:[facility] Appointment Type:BAD Follow Up Appointment Date:03/20/2023 09:00:00 AM Scheduled Provider:Christopher WELLS DO, FAAFP [facility] Appointment Type:FM Open Appointment Date:02/01/2024 08:00:00 AM Scheduled Provider: Location:[facility] Appointment Type: Medicare Wellness Subsequent Future Scheduled Tests Laboratory* HgbA1c 03/27/22 * HgbA1c 06/25/22 * HCV Antibody RFX to Quant PCR [facility]26/[facility] Future App[facility]ments Appointment Date:02/16/2023 01:45:00 PM Scheduled Provider: [facility] Type:WC Assessment (FT) Appointment Date:02/16/2023 02:15:00 PM Scheduled Provider: Location:[facility] Appointment Type:Surgery FT Appointment Date:02/24/2023 02:00:00 PM Scheduled Provider:Denton Mares DPM [facility] Appointment Type:WC Follow Up Visit (FT) Appointment Date:03/02/2023 08:15:00 AM Scheduled Provider:Mara Pastor PA-C Location:[facility] Appointment Type:Pain Management - Follow Up (FT) Appointment Date:03/02/2023 09:40:00 AM Scheduled Provider:Linda Solorio CNP Location:[facility] Appointment Type:BAD Follow Up Appointment Date:03/20/2023 09:00:00 AM Scheduled Provider:Christopher WELLS DO, FAAFP Location:[facility] Appointment Type:FM Open Appointment Date:02/01/2024 08:00:00 AM Scheduled Provider: Location:[facility] Appointment Type: Medicare Wellness Subsequent Future Scheduled Tests Laboratory* HgbA1c 03/27/22 * HgbA1c 06/25/22 * HCV Antibody RFX to Quant PCR [facility] Future App[facility]ments Appointment Date:02/24/2023 02:00:00 PM Scheduled Provider:Denton Mares DPM [facility] Appointment Type:WC Follow Up Visit (FT) Appointment Date:03/02/2023 09:40:00 AM Scheduled Provider:Linda Solorio CNP Location[facility] Appointment Type:BADH Follow Up Appointment Date:03/04/2023 08:45:00 AM Scheduled Provider: Location:[facility] Appointment Type:Surgery FT Appointment Date:03/20/2023 09:00:00 AM Scheduled Provider:Christopher WELLS DO, FAAFP Location:[facility] Appointment Type:FM Open Appointment Date:03/23/2023 08:30:00 AM Scheduled Provider:Mara Pastor PA-C Location:[facility] Appointment Type:Pain Management - Follow Up (FT) Appointment Date:02/01/2024 08:00:00 AM Scheduled Provider: Location:[facility] Appointment Type:FM Medicare Wellness Subsequent Future Scheduled Tests Laboratory* HgbA1c 03/27/22 * HgbA1c 06/25/22 * HCV Antibody RFX to Quant PCR [facility] Future App[facility]ments Appointment Date:03/03/2023 02:30:00 PM Scheduled Provider:Denton Mares DPM [facility] Appointment Type:WC Follow Up Visit (FT) Appointment Date:03/04/2023 08:45:00 AM Scheduled Provider: Location:[facility] Appointment Type:Surgery FT Appointment Date:03/20/2023 09:00:00 AM Scheduled Provider:Christopher WELLS DO, FAAFP Location:[facility] Appointment Type:FM Open Appointment Date:03/23/2023 08:30:00 AM Scheduled Provider:Mara Pastor PA-C Location:[facility] Appointment Type:Pain Management - Follow Up (FT) Appointment Date:02/01/2024 08:00:00 AM Scheduled Provider: Location:[facility] Appointment Type:FM Medicare Wellness Subsequent Future Scheduled Tests Laboratory* HgbA1c 03/27/22 * HgbA1c 06/25/22 * HCV Antibody RFX to Quant PCR 01/26/23 [facility] Evaluation + Plan note Future Appointments Appointment Date:03/04/2023 08:45:00 AM Scheduled Provider: Location:[facility] Appointment Type:Surgery FT Appointment Date:03/20/2023 09:00:00 AM Scheduled Provider:Christopher WELLS DO, FAAFP Location:[facility] Appointment Type: Open Appointment Date:03/23/2023 08:30:00 AM Scheduled Provider:Mara Pastor PA-C Location:[facility] Appointment Type:Pain Management - Follow Up (FT) Appointment Date:02/01/2024 08:00:00 AM Scheduled Provider: Location:[facility] Appointment Type:FM Medicare Wellness Subsequent Future Scheduled Tests Laboratory* HgbA1c 03/27/22 * HgbA1c 06/25/22 * HCV Antibody RFX to Quant PCR [facility]26/23 [facility] Future App[facility]ments Appointment Date:03/23/2023 08:30:00 AM Scheduled Provider:Mara Pastor PA-C Location:[facility] Appointment Type:Pain Management - Follow Up (FT) Appointment Date:07/28/2023 08:00:00 AM Scheduled Provider:Christopher WELLS DO, FAAFP Location:[facility] Appointment Type: Open Appointment Date:02/01/2024 08:00:00 AM Scheduled Provider: Location:[facility] Appointment Type:FM Medicare Wellness Subsequent Future Scheduled Tests Laboratory* HgbA1c 03/27/22 * HgbA1c 06/25/22 * HCV Antibody RFX to Quant PCR 01/26/23 [facility] Evaluation noteNo assessment information available [facility] Work Phone: Evaluation noteNo InformationNort [place] Other Evaluation note* Diagnosis Atherosclerosis of [place] coronary artery of [place] heart without angina pectoris Status post coronary angioplasty Postsurgical percutaneous transluminal coronary angioplasty status Essential hypertension Unspecified essential hypertension Hyperlipidemia, unspecified hyperlipidemia type PVD (peripheral vascular disease) ([facility]) Unspecified peripheral vascular disease Stage 3 chronic kidney disease, unspecified whether stage 3a or 3b CKD ([facility]) Sleep apnea, unspecified type documented in this encounter [facility] Work Phone: History general Narrative - [...] stent 3 STENTS Hospitalization History see above IFTTT Other History general Narrative - Reported* Type [...] LEG ANGIOPLASTY 03/2022 Hospitalization History see above IFTTT Other Hospital course Narrative No data available for this section [facility] Hospital Discharge instructions No data available for this section [facility] Progress note No data available for this section [facility] Consultation (Routine) - Authorized Specialty Diagnoses / Procedures Referred By Fariha t Referred To Contact Cardiology Diagnoses Atherosclerosis of [place] coronary artery of [place] heart without angina pectoris Status post coronary angioplasty Essential hypertension Procedures Follow Up In Cardiology Fariha Guidry MD [address], [address] [address] Fariha Guidry MD [address] [place] [address] Referral ID Status Reason Start Date Expiration Date V isits Requested Visits Authorized [id number] Authorized 02/12/2023 02/12/2024 1 1 [facility] Work Phone: Chief Complaint * EVON [...] * 5. Diabetes, managed by endocrinology in [place]. A1c remains above target * 6. Hypertension completely under control. * 7. High-risk medication with Xarelto, so far well-tolerated. Takes baby aspirin twice weekly * 8. Stage III chronic kidney disease to be monitored closely * 9. Recent diagnosis of intermittent claudications and PAD followed by vascular surgery Dr. 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 Relationship Specialty Start Date End Date Christopher Wells DO [address] [facility] [place] [place] [id number] PCP - General 08/02/18 Team Status: Inactive Member Role Status Dates Christopher Wells DO Primary Care Provider Active Start: June 09, 2023 End: June 09, 2023 Miguel Membreno MD Attending Provider Active S tart: June 09, 2023 End: June 09, 2023 INFORMATION SOURCE (unrecogn ized section and content) DATE CREATED AUTHOR 01/16/2022 [facility] DATE CREATED AUTHOR AUTHOR'S ORGANIZ ATION 01/16/2022 [employer] DATE CREATED AUTHOR AUTHOR'S ORGANIZ ATION 09/19/2022 [facility] DATE CREATED AUTHOR AUTHOR'S ORGANIZ ATION 02/14/2023 [facility] DATE CREATED AUTHOR AUTHOR'S ORGANIZ ATION 02/28/2023 [facility] DATE CREATED AUTHOR AUTHOR'S ORGANIZ ATION 03/19/2023 [facility] EPIC DATE CREATED AUTHOR AUTHOR'S ORGANIZ ATION 06/12/2023 [facility] REASON FOR VISIT (unrecogniz ed [...] BE BASED ON THE PRIMARY CLINICAL RECORDS. [employer] provides no warranty or guarantee of the accuracy or completeness of information in this document.
== END 2023-06-18 07:52 | disposition home or self-care (01) ==
LOC: VC 07:51
PROVIDERS: PCP Radiology Diagnostic Radiology; Visit Provider Radiology Diagnostic Radiology
DX: I83.813 Varicose veins of bilateral lower extremities with pain (principal)
CPT/HCPCS: 36466

== ENCOUNTER 2023-06-26 07:55 | Outpatient (OUT) | payer MEDICARE, BC, SELFPAY ==
--- NOTE | 2023-06-26 07:56 | VEIN_ITS ---
Patient Name: GEOVANNY CORCORAN MR#: [id number] : 1950 Exam Date: 06/26/2023 Ordering Doctor: DR AILIN JC M.D. RADIOLOGY REPORT PROCEDURE: VC EXT VENOUS LT LIMITED COMPARISON: VC EXT VENOUS LT LIMITED, 05/18/2023. INDICATIONS: Phlebitis of superficial veins of left lower extremity I80.02 TECHNIQUE: Lower extremity freeman scale and Duplex Doppler evaluation of the deep venous system from the inguinal ligament through the calf veins. FINDINGS: REGION: Left lower extremity. THROMBI: Positive for DVT. Chronic partial thrombus in left popliteal vein. Chemically induced thrombus in multiple varicose veins in left leg. COMPRESSIBILITY: Non-compressible segments corresponding to thrombus FLOW: Areas of no flow corresponding to thrombus OTHER: Patent varicose vein medial left knee measures 7.1 mm. GSV has partially recanalized from distal thigh to proximal thigh. Patent varicose vein proximal posterior calf measures 4.9 mm. CONCLUSION: 1. Successful post ablation occlusion of left leg treated branch saphenous varicosities. 2. Stable small segment of thrombus within left popliteal vein. 3. Partial recanalization of a segment of left great saphenous vein. Dictated by: Christopher Delvalle M.D. on 06/26/2023 at 08:51 Approved by: Christopher Delvalle M.D. on 06/26/2023 at 08:53
--- NOTE | 2023-06-26 07:56 | VEIN_ITS ---
Patient Name: GEOVANNY CORCORAN MR#: [id number] : 1950 Exam Date: 06/26/2023 Ordering Doctor: DR AILIN JC M.D. RADIOLOGY REPORT PROCEDURE: FACILITY EST [facility] - OFFICE VISIT FOLLOW UP COMPARISON: VC EXT VENOUS LT LIMITED, 06/26/2023. FACILITY EST LMTD, 06/15/2023. PROGRESS NOTES: The patient reports improvement in leg symptoms. There has been interval reduction in varicosities. The patient has followed our recommendations to walk 20-30 minutes once or twice per day since the procedure. Physical exam demonstrates decrease in varicosities of the leg. Persistent varicosities are identified along the legs bilaterally. Review of the ultrasound performed the same day demonstrates occlusive thrombus extending throughout the treated vein(s), see separate report, consistent with a successful ablation. No thrombus extending into or beyond the saphenofemoral junction. Stable, small segment of thrombus within left popliteal vein. Partial recanalization of a segment of left great saphenous vein within the thigh. The patient expressed a desire to proceed with treatment of remaining incompetent varicosities. The patient was informed that treatment was a process and would require several procedures/sessions. VEIN/[facility] EST TD IMPRESSION: 1. Successful ablation of the left leg treated branch saphenous vein(s). 2. Persistent varicose veins and lower extremity symptoms. 3. Stable, small residual segment of thrombus within left posterior tibial vein felt to be stable at this point. Patient will discontinue daily aspirin. 4. Partial recanalization of a segment of left great saphenous vein within the thigh. PLAN: 1. Microfoam chemical ablation of right leg branch saphenous varicosities followed by left leg and segment of left great saphenous vein. 2. Discontinuation of daily aspirin. Nurse notes, history and physical were reviewed and confirmed, see attached forms. The nurse was present throughout the physical exam and consultation Dictated by: Christopher Delvalle M.D. on 06/26/2023 at 08:53 Approved by: Christopher Delvalle M.D. on 06/26/2023 at 08:56
--- OUTSIDE RECORDS SUMMARY | 2023-06-26 07:59 | XMS_ITS | CCD ---
Author Organization [facility] Care Team Providers Care Reed Man Name Role Phone Christopher Wells Unavailable Unavailable [...] Care Provider MD Miguel Membreno Attending Provider [phone] Christopher Wells Primary Care Unavailable Guidry, Dr. Fariha Norwood Attending Carolina vailable DO Christopher Wells Primary Care Provider MD Miguel Membreno Attending Provider [phone] [facility] Barahona Attending Provider Christopher Wells DO Primary Care Provider FARIHA GUIDRY Attending Unavailable CHRISTOPHER WELLS Primary Care Unavailable DO Christopher Wells Primary Care Provider [phone] MD Miguel Membreno Attending Provider Russell, Christopher [...] Attending Unavailable Dolce, Denton Gomez Attending Unavailable Matador, Catrachito D Referring Unavailable Matador, Catrachito D Attending Unavailable Matador, Catrachito D Admitting Unavailable Matador, Catrachito D Referring Unavailable Matador, Catrachito D Attending Unavailable Matador, Catrachito D Admitting Unavailable Guidry, Fried Admitting [...] Drug Allergy 023 Unknown (qualifier value), Diarrhea [facility] 250 DO Work Phone: (20 sources) hydroCHLOROthiazide; Translations: [hydroCHLOROthiazide CAPS] Drug Allergy 023 Diarrhea [facility] 250 DO Work Phone: (20 sources) hydroCHLOROthiazide / Spironolactone; Translations: [Aldactazide] Drug Allergy 023 Weal (disorder), Diarrhea [place] [address] DO Work Phone: (20 sources) Lisinopril; Translations: [Zestril] Drug Allergy 023 Diarrhea (finding), Diarrhea [facility] 250 DO Work Phone: (20 sources) metFORMIN; Translations: [Glucophage] Drug Allergy 023 Diarrhea [facility] 250 DO Work Phone: (20 sources) valsartan; Translations: [Diovan] Drug Allergy 023 Unknown (qualifier value), Diarrhea [facility] 250 DO Work Phone: (20 sources) hydroCHLOROthiazide / Lisinopril; Translations: [hydrochlorothiazide-l isinopril] Drug Allergy Diarrhea (finding) [facility] (20 sources) Terazosin; Translations: [terazosin] Drug Allergy 019 Unknown, Unknown Reaction [facility] (9 sources) metFORMIN Drug Allergy Unknown [employer] Other (8 sources) Doxazosin; Translations: [DOXAZOSIN] Drug Allergy Unknown Reaction [facility] (7 sources) hydroCHLOROthiazide; Translations: [HYDROCHLOROTHIAZIDE] Drug Allergy Unknown Reaction, Diarrhea [facility] (7 sources) Lisinopril; Translations: [LISINOPRIL] Drug Allergy Unknown Reaction [facility] (7 sources) metFORMIN; Translations: [METFORMIN] Drug Allergy Unknown Reaction, Diarrhea [facility] (6 sources) pioglitazone; Translations: [pioglitazone] Drug Allergy Unknown Reaction [facility] (6 sources) Spironolactone; Translations: [spironolactone] Drug Allergy Unknown Reaction, Hives [facility] (7 sources) valsartan; Translations: [VALSARTAN] Drug Allergy Unknown Reaction [facility] (1 source) SPIRONOLACTON-HYDROCHL OROTHIAZ; Translations: [SPIRONOLACTON-HYDROCH LOROTHIAZ] Propensity to adverse reactions to drug (disorder) [place] [address] Repository (1 source) Terazosin Drug Allergy [facility] Repository (1 source) Lisinopril; Translations: [Prinivil] Drug Allergy [facility] Repository Medications Current Medications Medication [...] Wheezing, 8.5 gm, Refill(s) 0, [id number], 165, cm, 04/10/23 9:26:00 EST, Height/Length Dosing, [...] 90 tab(s), Refills(s) 3, Pharmacy: [facility] #[id number], 166, cm, 10/28/21 9:59:00 EDT, Height/Length Dosing, [...] 6 tab(s), Refills(s) 0, [facility]: [facility] #[id number], 165, cm, 04/10/23 9:26:00 EST, Height/Length Dosing, [...] 60 tab(s), Refills(s) 5, [facility]acy: [facility] #[id number], 165, cm, 09/24/21 8:39:00 EDT, Height/Length Dosing, [...] 20 cap(s), Refills(s) 1, [facility]acy: [facility] #[id number], 165, cm, 12/18/22 8:28:00 EDT, Height/Length Dosing, [...] E11.65, # 5 EA, Refills(s) 11, [id number], 165, cm, 06/11/22 9:10:00 EDT, Height/Length Dosing, 97.6, kg, 06/11/22 9:10:00 EDT, Weight Dosing Start Date: 08/22/22 Status: Ordered Start: 08-22-2022 inject 30 [IU] by griffin bcutaneous injection twice daily Tresiba FlexTouch 100 units/mL subcutaneous solution 30 unit(s), SubCutaneous, BID, Dx E11.65, # 5 EA, Refills(s) 11, [facility]acy: [facility] #[id number], 165, cm, 06/11/22 9:10:00 EDT, Height/Length Dosing, 97.6, kg, 06/11/22 9:10:00 EDT, Weight Dosing Start Date: 08/22/22 Status: Ordered Start: 09-24-2021 inject 30 [IU] by griffin bcutaneous injection twice daily Tresiba FlexTouch 100 units/mL subcutaneous solution 30 unit(s), SubCutaneous, BID, Dx E11.65, # 5 EA, Refills(s) 11, [facility]: [facility], 165, cm, 09/24/21 8:39:00 [...] 1:00am Start: 02-18-2023 take 1 tablet by [facility] once daily Multivitamin Active [...] 0.4 MG Sublingual Active polyethylene glycol 3350 412993 mg / potassium chloride 1480 mg / sodium bicarbonate 5720 mg / sodium chloride 83281 mg powder for oral solution (1 source) Osmotic Laxative Start: 05-05-2022 NuLYTELY Flannery oral powder for reconstitution See Instructions, 1 EA, Refill(s) 0, Prior to colonoscopy., [facility] #[id number], 165, cm, 05/05/22 13:40:00 EST, Height/Length Dosing, 95.2, kg, 05/05/22 13:40:00 EST, Weight Dosing Start Date: 05/05/22 Status: Ordered Potassimin (9 sources) Potassimin Activ e potassium chloride 10 meq extended release oral capsule (20 sources) Start: 04-17-2021 take 10 mEq by mouth once daily Potassium Chloride Active 10 MEQ PO Daily April 07, 2022 1:00am Start: 04-17-[address] [facility] once daily potassium chloride 10 mEq Cap-ER [...] day(s), # 21 tab(s), Refills(s) 0, Pharmacy: [facility] #[id number], 165, cm, 04/10/23 9:26:00 EST, Height/Length Dosing, [...] 06, 2018 12:00am Has been instructed by [facility] to stop 2 days before heart cath Start: 08-06-2018 take 20 mg by mouth once daily Rivaroxaban Active 20 MG PO Every evening August 06, 2018 12:00am Has been instructed by [facility] to stop 2 days before heart [...] capsule Indications: Mixed hyperlipidemia , Atherosclerosis of [place] coronary artery of [place] heart without angina pectoris TAKE 1 CAPSULE [...] sources) Coronary atherosclerosis; Translations: [Coronary atherosclerosis of [place] coronary artery] Onset: 09-18-19 23 09-11-2020 Chronic Coronary atherosclerosis and other heart disease (16 sources) Past history of procedure; Translations: [Percutaneous transluminal coronary angioplasty status] Onset: 01-10-2002-12-2023 Episodic Coronary atherosclerosis and other heart disease (3 sources) Coronary atherosclerosis and other heart disease; Translations: [Atherosclerosis of [place] arteries of left leg with ulceration of [...] limb due to atherosclerosis; Translations: [Atherosclerosis of [place] arteries of extremities with gangrene, left leg] [...] medications] Episodic Other aftercare (1 source) Other manager intermediate (current) drug therapy; Translations: [Other halfway (current) drug therapy] Onset: 09-18-19 Episodic Other aftercare (1 source) Long-term current use of drug therapy; Translations: [Other halfway (current) drug therapy] Onset: 01-27-20 Episodic Other aftercare (1 source) Long-term current use of anticoagulant; Translations: [skilled nursing (current) use of anticoagulants] Onset: 01-27-20 Episodic Other aftercare (2 sources) Long-term current use of insulin; Translations: [skilled nursing (current) use of insulin] Onset: 01-27-20 Episodic [...] Facil ity Consultation Noteon 06-10-19 Consultation Note [id number]#1.00T IFF Normal [facility] Consent for Treatmenton 04-17 Consent for Treatment [id number]#1.00T IFF Normal [facility] Consent for Treatment [id number]#1.00T IFF Normal [facility] [id number] 05-11-2023 HbA1c (Bld) [Mass fraction] 11.3 % High <=5.9 [facility] Comment on above: Performed By: #### 7 [id number] ####[facility] [address] [place] [address] Physician Orderon 05-11-2023 Physician Order [id number]#1.00T IFF Normal [facility] Renal Panelon 05-11-2023 Albumin [Mass/Vol] 3.9 g/dL Normal 3.3-5.0 [facility] Comment on above: Performed By: #### 2 052346, [id number] #### [facility] [address] [place] [address] Anion gap [Moles/Vol] 13 mmol/L Normal 6-16 [facility] Comment on above: Performed By: #### 2 476308, [id number] #### [facility] [address] [place] [address] BUN/Creat Ratio 16 No Units Normal 10-20 [facility] Comment on above: Performed By: #### 2 560601, [id number] #### [facility] [address] [place] [address] Calcium [Mass/Vol] 8.9 mg/dL Normal 8.9-11.1 [facility] Comment on above: Performed By: #### 2 628448, [id number] #### [facility] [address] [place] [address] Chloride [Moles/Vol] 101 mmol/L Normal 101-111 [facility] Comment on above: Performed By: #### 2 425140, [id number] #### [facility] [address] [place] [address] CO2 [Moles/Vol] 28 mmol/L Normal 21-31 [facility] Comment on above: Performed By: #### 2 928970, [id number] #### [facility] [address] [place] [address] Creatinine [Mass/Vol] 1.2 mg/dL Normal 0.5-1.3 [facility] Comment on above: Performed By: #### 2 107067, [id number] #### [facility] [address] [place] [address] Glucose [Mass/Vol] 385 mg/dL High 55-199 [facility] Comment on above: Performed By: #### 2 266784, 0660608 #### [facility] [address] [place] [address] Phosphate [Mass/Vol] 3.5 mg/dL Normal 1.9-4.6 [facility] Comment on above: Performed By: #### 2 995215, 4392981 #### [facility] [address] [place] [address] Potassium [Moles/Vol] 4.3 mmol/L Normal 3.5-5.3 [facility] Comment on above: Performed By: #### 2 417186, 1782981 #### [facility] [address] [place] [address] Sodium [Moles/Vol] 138 mmol/L Normal 135-145 [facility] Comment on above: Performed By: #### 2 238238, 1742785 #### [facility] [address] [place] [address] Urea nitrogen [Mass/Vol] 19 mg/dL Normal 5-21 [facility] Comment on above: Performed By: #### 2 715469, 5459460 #### [facility] [address] [place] [address] U Protein/Creat Ratioon 04-17 U Creatinine 34.3 mg/dL Invalid Interpretation Code [facility] Comment on above: Performed By: #### 1 8347061, [id number] #### [facility] [address] [place] [address] U Prot/Creat Ratio 13.70 mg/gm Cr Normal .00-200.00 [facility] Comment on above: Performed By: #### 1 1615418, [id number] #### [facility] [address] [place] [address] Ur Total Protein <6.0 Invalid Interpretation Code [facility] Comment on above: Performed By: #### 1 3286803, [id number] #### [facility] [address] [place] [address] Urinalysison 05-11-2023 Bilirubin Ql (U) Negative Normal Negative [facility] Comment on above: Performed By: #### 1 4634514, [id number] #### [facility] [address] [place] [address] Clarity (U) CLEAR Normal Clear [facility] Comment on above: Performed By: #### 1 4041499, [id number] #### [facility] [address] [place] [address] Color (U) YELLOW Normal Yellow [facility] Comment on above: Performed By: #### 1 8047601, [id number] #### [facility] [address] [place] [address] Epithelial cells.squamous LM.HPF (Urine sed) [#/Area] 0-2 Normal 0-2 [facility] Comment on above: Performed By: #### 1 1089440, [id number] #### [facility] [address] [place] [address] Glucose Test strip (U) [Mass/Vol] 3+ Abnormal Negative [facility] Comment on above: Performed By: #### 1 3116631, [id number] #### [facility] [address] [place] [address] Hemoglobin Ql (U) Negative Normal Negative [facility] Comment on above: Performed By: #### 1 1426754, [id number] #### [facility] [address] [place] [address] Ketones (U) [Mass/Vol] Negative Normal Negative [facility] Comment on above: Performed By: #### 1 6812322, [id number] #### [facility] [address] [place] [address] [place].plasma/Lith ium.RBC (Bld) [Mass ratio] 0-3 Normal 0-3 [facility] Comment on above: Performed By: #### 1 6014892, [id number] #### [facility] [address] [place] [address] Nitrite Ql (U) Negative Normal Negative [facility] Comment on above: Performed By: #### 1 1005643, [id number] #### [facility] [address] [place] [address] pH (U) 5.5 [pH] Invalid Interpretation Code 5.0-9.0 [facility] Comment on above: Performed By: #### 1 3267717, [id number] #### [facility] [address] [place] [address] Protein (U) [Mass/Vol] Negative Normal Negative [facility] Comment on above: Performed By: #### 1 5097503, [id number] #### [facility] [address] [place] [address] Specific gravity (U) [Rel density] 1.010 Invalid Interpretation Code 1.005-1.030 [facility] Comment on above: Performed By: #### 1 8643187, [id number] #### [facility] [address] [place] [address] Type of Urine collection method Clean Catch Normal [facility] Comment on above: Performed By: #### 1 2925158, [id number] #### [facility] [address] [place] [address] Urobilinogen Qn (U) 0.2 {Donell'U}/dL Normal 0.0-1.0 [facility] Comment on above: Performed By: #### 1 6066833, [id number] #### [facility] [address] [place] [address] WBC Auto Ql (U) Negative Normal Negative [facility] Comment on above: Performed By: #### 1 3940466, [id number] #### [facility] [address] [place] [address] WBC LM.HPF (Urine sed) [#/Area] 0-5 Normal 0-5 [facility] Comment on above: Performed By: #### 1 2013965, [id number] #### [facility] [address] [place] [address] eGFRon 05-11-2023 eGFR 48 mL/min/1.73 m2 Low >=59 [facility] Comment on above: Order Comment: Order added by Discern Expert. Performed By: #### 2 563931, [id number] #### [facility] [address] [place] [address] Consent for Treatmenton 03-17 Consent for Treatment [id number]#1.00T IFF Normal [facility] Discharge Instructionson Discharge Instructions [id number]#1.00 TIFF Normal [facility] ED Clinical Summaryon 2023 ED Clinical Summary (Inserted Image. [place] ble to display) [place] [id number] ED Clinical Summary Person Information Name: EVON CORCORAN Laura[facility] Age: 72 Years : 1950 Sex: Female Language: Ethiopian PCP: Christopher WELLS DO, FAAFP Marital Status: [...] 04/10/2023 11:23:38 04/10/2023 11:23:38 04/10/2023 11:23:38 ADDRESS: [address] [place] [address] [address] [facility] [id number] PHYS DOC NOTES: MEDICAL INFORMATION: Prescriptions Given: New Medications [facility] #[id number], [address] [place], [place] [id number], [phone] albuterol (Albuterol (Eqv-ProAir HFA) 90 mcg/inh inhalation [...] Follow up: With: Address: When: Christopher WELLS [address] [place] [address] A [place] [id number] [facility] (spotflux In 3 days 04/13/2023 DIAGNOSIS: Bronchitis Normal [facility] ED Note-Physicianon 04-10-19 ED Note-Physician [...] No known sick contacts. She is taking lphy-qnw-kjjwoqk cough and cold medications. Review of Systems [...] Wheezing, 8.5 gm, Refill(s) 0, [facility] #50892, 165, cm, 04/10/23 9:26:00 EST, Height/Length Dosing, 96.9, kg, 04/10/23 9:26:00 EST, Weight Dosing azithromycin, = 1 packet(s), Oral, As Directed, as directed on package labeling, X 5 day(s), # 6 tab(s), Refills(s) 0, [id number], 165, cm, 04/10/23 9:26:00 EST, Height/Length Dosing, 96.9, kg, 04/10/23 9:26:00 EST, Weight Dosing predniSONE, 60 mg = 3 tab(s), Oral, Daily, X 7 day(s), # 21 tab(s), Refills(s) 0, [facility] #71301, 165, cm, 04/10/23 9:26:00 EST, Height/Length Dosing, [...] 3 days 04/13/2023 EST 280 [facility] [place] [id number] [facility] (1) Additional Instructions: Patient Education Acute Bronchitis, Adult Attestation Patient seen and evaluated by the physician multimedia assistant. Attending physician was present in the emergency department and supervised care. This visit was performed by both the physician and an APC. I performed all aspects of the MDM as documented. This report was transcribed using voice recognition software. Every effort was made to ensure accuracy, however, inadvertently computerized audio specialist mistakes may be present. Appropriate healthcare PPE was used in evaluating this patient. The patient was placed in a mask. The healthcare provider was wearing mask, gloves, and utilizing proper hand hygiene. All equipment was properly cleansed. Problem List/Past Medical History Ongoing CAD in [place] artery Chronic renal impairment, stage 3a Claudication [...] nonproliferative diabetic (more content not included)... Normal [facility] Comment on above: Result [...] Follow these instructions at home: ? Take nyxq-wqr-kuditxp and prescription medicines only as told by [...] and water are not available, use hand responder. ? Avoid contact with people who have [...] is easier to cough up. ? Take jsft-nhg-wdakddn and prescription medici (more content not included)... Normal [facility] ED Patient Summaryon 024 ED Patient Summary (Inserted Image. [place] ble to display) [place] [id number] Patient Discharge Instructions Person Information Name: EVON CORCORAN Age: 72 Years Arrival Date: 04/10/2023 09:13:22 Discharge Diagnosis: Bronchitis Primary Care Physician: Christopher WELLS DO, FAAFP Provider Information Primary Provider: Malvin Gupta M.D. Advanced Therapy Administrative Assistant:Radhames Suarez PA-C The exam and treatment you received in the Emergency Department were for an urgent problem and are not intended as complete care. It is important that you follow up with a doctor, nurse practitioner, or physician?s multimedia assistant for ongoing care. If your symptoms [...] When: Christopher WELLS [address], [place] [address] Business (1) In 3 days 04/13/2023 In the event that this physician does not participate in your insurance network, please consult with your insurance company to find a nearby participating provider. Patient Education Materials: Acute Bronchitis, Adult A MESSAGE TO ALL PATIENTS REGARDING OPIOIDS PRESCRIPTION OPIOIDS: WHAT YOU NEED TO KNOW Prescription opioids can be used to help relieve tiqguhxz-jf-tinydw pain and are often prescribed following a [...] with addiction, tell your health career services coordinator and ask for guidance or call [facility] Helpline at [phone]-SPDL. [place] (more content not included)... Normal [facility] XR Chest 2 Viewson XR [...] MD Transcribed by: KATEY Technologist: JUAN MIGUEL [facility] Consent for Treatmenton Consent for Treatment [id number]#1.00T IFF [facility] Consultation Noteon 03-23-19 24 Consultation Note Patient: [...] 11, Dx: E11.9 Directions: BID, [facility] #[facility]41, Supply, 165, cm, 06/11/22 9:10:00 EDT, Height/Length Dosing, 97.6, kg, 06/11/22 9:10:00 EDT, Weight Dosing Tresiba FlexTouch 100 units/mL subcutaneous solution: 50 unit(s), SubCutaneous, Daily, Dx E11.65, # 5 EA, Refills(s) 11, [facility] #[id number], 165, cm, 06/11/22 9:10:00 EDT, Height/Length Dosing, 97.6, kg, 06/11/22 9:10:00 EDT, Weight Dosing chlorthalidone 25 mg Tab: 25 mg = 1 tab(s), Oral, Bedtime, # 90 tab(s), Refills(s) 1, Pharmacy: [facility] #[id number], 165, cm, 09/10/22 8:16:00 EDT, Height/Length Dosing, 97.4, kg, 09/10/22 8:16:00 EDT, Weight Dosing potassium chloride 10 mEq Cap-ER: 10 mEq = 1 cap(s), Oral, Daily, # 90 cap(s), Refills(s) 3, Pharmacy: [facility] #[id number], 165, cm, 05/21/22 12:25:00 EST, Height/Length Dosing, [...] Problems HTN - Hypertension / SNOMED CT 2749271341 / Confirmed Familial hypercholesteremia / SNOMED CT 3270345218 / Confirmed Non-smoker / SNOMED CT 85708202 / Confirmed CAD in [place] artery / SNOMED CT 53443331 / Confirmed History of DVT in adulthood / SNOMED CT 9006155578 / Confirmed Type 2 diabetes mellitus with hypercholesterolemia / SNOMED CT 912648975 / Confirmed linked DM with hypercholesterolemia per outpatient CDI policy. Type 2 diabetes mellitus with stage 3 chronic kidney disease / SNOMED CT 258993863 / Confirmed linked DM with CKD per outpatient CDI policy. Mild nonproliferative diabetic retinopathy of both eyes / SNOMED CT 335655819 / Confirmed noted in 08/21/2019 Diabetic Eye Exam. added per outpatient CDI policy. 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 Normal [facility] Comment on above: Result Comment: Elec tronically Signed By: Dawit BARTH, Mara\.br\Date and Time Signed: 03/23/23 09:07 EST Legal Correspondence Officeo n 03-23-2023 Legal Correspondence Office [id number]#1.00 TIFF Normal [facility] Office/Clinic Note-Physician on 03-23-2023 Office/Clinic Note-Physician [id number]#1.00 TIFF Normal [facility] Patient Correspondenceon Patient Correspondence [id number]#1.00 TIFF Normal [facility] Patient Correspondence [id number] TIFF Normal [facility] Patient Correspondence [id number] TIFF Normal [facility] Patient Correspondence [id number] TIFF Normal [facility] Patient History Officeon Patient History Office [id number] TIFF Normal [facility] Family Medicine Office/Clini c Noteon [...] re: potential procedure: Clinically currently asymptomatic and wik-fbdi-jpunoiffvtr. Please see Dr. Castro's consultation 2. BMI [...] and exercise. 4. 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 5. Mild nonproliferative diabetic retinopathy of both eyes (E11.3293: Type 2 diabetes mellitus with mild nonproliferative diabetic retinopathy without macular edema, bilateral) Follow-up with medical research associate 6. Type 2 diabetes mellitus with hypercholesterolemia (E11.69: Type 2 diabetes mellitus with other specified complication) Tresiba 50 units SQ every morning with sliding scale per med rec per Dr. Salter. Continue losartan: Sugars improved, surveillance A1c's per Dr. Ruggiero 7. Type 2 diabetes mellitus with stage (more content not included)... Normal [facility] Comment on above: Result [...] plan? Your health care provider or certified medical technician can help you make a plan [...] stroke). Where to find more information ? [place] [employer]: www.diabetes.org Summary ? Exercising regularly is important for overall health, especially for people who have diabetes mellitus. ? Exercising has many health benefits. It increases muscle strength and bone density and reduces body fat and stress. It also lowers and controls blood glucose. ? Your health care provider or certified medical technician can help you make an activity [...] provider. Document Revised: 11/28/2019 Document Reviewed: 11/28/2019 [employer] Patient Education ? 2022 [employer] [facility] Nursing Note - Woundon 03-19 Nursing Note - Wound [id number]#2.00 TIFF [facility] Consultation Noteon 03-07-20 Consultation Note [id number]#1.00T IFF Normal [facility] CHEMISTRYOrdered By: Lab ROP User on 03-04-2023 Glucose [Mass/Vol] 78 mg/dL Normal 55 - 99 mg/dL FTM C POC Subsection POC Device SN [id number] Invalid Interpretation Code [facility] POC Subsection POC Username MACIE POTTS Invalid Interpretation Code [facility] POC Subsection Sodium [Moles/Vol] [id number] mmol/L Invalid Interpretation Code [facility] POC Subsection Capillary Glucose POCon 02-14 Glucose [Mass/Vol] 78 mg/dL Normal 55-99 [facility] Comment on above: Performed By: #### 2 [id number] #### [facility] [address] [place] [address] Consent for Procedure/Surger yon 03-04-2023 Consent for Procedure/Surgery [id number]#1.00 [facility] for Treatment[facility] 02-14 Consent for Treatment [id number]#1.00T IFF [facility] Discharge Instructionson Discharge Instructions [id number]#1.00 TIFF Normal [facility] Insurance Correspondenceon 05-05-2022 Insurance Correspondence [id number]#1.00 TIFF Normal [facility] IntraOperative Documentson 05-05-2022 IntraOperative Documents [id number]#1.00 TIFF [facility] Main OR Intraoperative Recor don 03-04-2023 Main OR Intraoperative Record IntraOp Document Type FTPM Summary Primary Physician: Nicola Tapia DO Finalized Date/Time: 03/04/23 09:06:01 Pt. Name: EVON CORCORAN/Sex: 1950 Female Med Rec #: [id number] Physician: Nicola Tapia DO Financial #: [id number] Pt. Type: P Room/Bed: / Admit/Disch: 03/04/23 [...] Leanne Montenegro Role Performed Surgeon - Primary Diesel Tractor Engine Mechanic - Primary Scrub - Primary Time In 03/04/23 09:01:00 03/04/23 09:01:00 03/04/23 09:01:00 Time Out 03/04/23 09:06:00 03/04/23 09:06:00 03/04/23 09:06:00 Procedure HIP INJECTION(Left) HIP INJECTION(Left) HIP INJECTION(Left) Comments Last Modified By: Crow EHCAVARRIA, Estrellita Maria RN, Estrellita Ryder RN 03/04/23 09:05:56 03/04/23 09:05:56 03/04/23 09:05:56 Entry 4 Case Attendee Ervin Mckeon Role Performed Dynamics Ax Developer Time In 03/04/23 09:01:00 Time Out 03/04/23 [...] and tissue Entry 1 Skin Integrity Intact, Inger, Warm, and Skin Abnormality No Dry Outcomes [...] injury related (more content not included)... Normal [facility] Main OR Preoperative Recordo n 03-04-2023 Main OR Preoperative Record Holding Area Document Type FTPM Summary Primary Physician: Nicola Tapia DO Finalized Date/Time: 03/04/23 08:19:34 Pt. Name: EVON CORCORAN Get Veras/Sex: 1950 Female Med Rec #: [id number] Physician: Nicola Tapia DO Financial #: [id number] Pt. Type: P Room/Bed: / Admit/Disch: 03/04/23 [...] Signed By: Macie Potts RN 03/04/23 08:19 [facility] Consent for Treatmenton 02-13 Consent for Treatment [id number]#1.00T IFF [facility] Multi-Wound Charton 03-03-20 Multi-Wound Chart [id number] 202 [id number]#1.00 TIFF [facility] Nursing Assessment - Woundon 03-03-2023 Nursing Assessment - Wound [id number]#1.00 TIFF [facility] Physician Orderon 03-03-2023 Physician Order [id number] 202 [id number]#1.00 TIFF [facility] Progress Note - Woundon 02-13 Progress Note - Wound [id number]#1.00 TIFF [facility] Correspondence - Woundon Correspondence - Wound [id number]#1.00 TIFF [facility] Consent for Procedure/Surger yon 02-24-2023 Consent for Procedure/Surgery [id number]#1.0 0TIFF [facility] Consent for Treatmenton 02-13 Consent for Treatment [id number]#1.00T IFF [facility] Multi-Wound Charton 02-25-20 Multi-Wound Chart [id number] 202 [id number]#1.00 TIFF Normal [facility] Nursing Assessment - Woundon 02-24-2023 Nursing Assessment - Wound [id number]#1.00 TIFF [facility] Nursing Note - Woundon 02-24 Nursing Note - Wound [id number]#1.00 TIFF Normal [facility] Physician Orderon 02-24-2023 Physician Order [id number] 202 [id number]#1.00 TIFF [facility] Procedure - Woundon 02-25-20 Procedure - Wound [id number] 202 [id number]#1.00 TIFF [facility] Progress Note - Woundon 02-13 Progress Note - Wound [id number]#1.00 TIFF [facility] Retail - Clinical Noteon Retail - Clinical Note [id number]#1.00T IFF [facility] US venous mapping BI loweron 02-19-2023 [place] [address] Ultrasound Report Signed Patient: Evon Corcoran MR#: [id number] : 1950 Acct:[id number] Age/Sex: 72 / F ADM Date: 02/18/23 Loc: Room: Type: [facility] Attending Dr: Miguel Membreno MD [...] Miguel Membreno M.D.02/19/2023 1:30 PM Dictation Location: [place] [address] Tech: Isabell Duarte Transcribed By: RICH 02/19/23 1330 Dictated By: Miguel Membreno MD 02/19/23 1327 Signed By: 02/19/23 1330 [facility] Blood Urea Nitrogenon 2022 Urea nitrogen [Mass/Vol] 25 mg/dL Normal 10-07 [facility] Comment on above: Performed By: #### C REMAY BUN #### [facility] [address] [place] [address] [place] Creatinineon 02-18-2023 Creatinine [Mass/Vol] 1.18 mg/dL Normal 0.60-1.20 [facility] Comment on above: Performed By: #### C NIMO BUN #### [facility] [address] [place] [address] [place] Creatinine Clr Calc Pharmacy 49.07 [facility] Comment on above: Result Comment: PERF ORMED BY: [place] [address] PATHOLOGIST PASTE WORKER AIRAM ROMEO M.D. Performed By: #### C REMAY BUN #### [facility] [address] [place] [address] [place] GFR/1.73 sq M.predicted MDRD (S/P/Bld) [Vol rate/Area] 48.770 mL/min/{1.73_m2} [facility] Comment on above: Performed By: #### C REAT, BUN #### [address] Creatinine [Mass/volume] in Serum or PlasmaOrdered By: Miguel Membreno on 02-18-2023 Creatinine [Mass/Vol] 1.18 mg/dL 0.60-1.20 [facility] Lab Reportson 02-18-2023 Lab Reports [id number]#1.00T IFF Normal [facility] No Panel InformationOrdered By: Miguel Membreno on 02-18-2023 Estimated GFR (CKD-EPI) 48.770 mL/Min [facility] Creatinine Clearance (Chem 49.07 [facility] Operative Reporton Operative Report [id number] 204 [id number]#1.00T IFF Normal [facility] Retail - Clinical Noteon Retail - Clinical Note [id number]#1.00T IFF [facility] Retail - Clinical Note [id number]#1.00T IFF [facility] Urea nitrogen [Mass/volume] in Serum or PlasmaOrdered By: Miguel Membreno on 02-18-2023 Urea nitrogen [Mass/Vol] 25 mg/dL 10-07 [facility] Insurance Correspondenceon 1 04-20-2022 Insurance Correspondence [id number]#1.00 TIFF [facility] Physician Orderon 02-17-2023 Physician Order [id number] 202 [id number]#1.00 TIFF Normal [facility] CHEMISTRYOrdered By: Lab ROP User on 02-16-2023 Glucose [Mass/Vol] 311 mg/dL High 55 - 99 mg/dL [facility] C POC Subsection POC Device SN [id number] Invalid Interpretation Code [facility] POC Subsection POC Username RONI CHOWDHURY Invalid Interpretation Code [facility] POC Subsection Sodium [Moles/Vol] [id number] mmol/L Invalid Interpretation Code [facility] POC Subsection Capillary Glucose POCon Glucose [Mass/Vol] 311 mg/dL High 55-99 [facility] Comment on above: Performed By: #### 2 [id number] #### [facility] [address] [place] [address] Consent for Treatmenton Consent for Treatment [id number]#1.00T IFF Normal [facility] Consent for Treatment [id number]#1.00T IFF Normal [facility] Main OR Preoperative Recordo n 02-16-2023 Main OR Preoperative Record Holding Area Document Type FTPM Summary Primary Physician: Gary Cerda MD Finalized Date/Time: 02/16/23 13:36:16 Pt. Name: EVON CORCORAN Get Hernandez/Sex: 1950 Female Med Rec #: [id number] Physician: Gary Cerda MD Financial #: [id number] Pt. Type: P Room/Bed: / Admit/Disch: 02/16/23 [...] 13:19 Bertha Chowdhury RN 02/16/23 13:36 Normal [facility] Multi-Wound Charton 02-17-20 Multi-Wound Chart [id number] 201 [id number]#1.00 TIFF Normal [facility] Nursing Assessment - Woundon 02-16-2023 Nursing Assessment - Wound [id number]#1.00 TIFF [facility] Nursing Note - Woundon 02-16 Nursing Note - Wound [id number]#1.00 TIFF [facility] Patient Correspondenceon Patient Correspondence [id number]#1.00T IFF [facility] Consent for Procedure/Surger yon 02-10-2023 Consent for Procedure/Surgery [id number]#1.00 TIFF [facility] Consent for Treatmenton 01-15 Consent for Treatment [id number]#1.00T IFF [facility] Multi-Wound Charton 02-11-20 Multi-Wound Chart [id number] 102 [id number]#1.00 TIFF [facility] Nursing Assessment - Woundon 02-10-2023 Nursing Assessment - Wound [id number]#1.00 [facility] - [facility]on 02-10 Nursing Note - Wound [id number]#1.00 TIFF [facility] Physician Orderon 02-10-2023 Physician Order [id number]#1.00 [facility] Procedure - Woundon 02-11-20 Procedure - Wound [id number] 102 [id number]#1.00 [facility] Progress Note - Woundon 01-15 Progress Note - Wound [id number]#1.00 [facility] Insurance Correspondenceon 04-05-2022 Insurance Correspondence [id number]#1.00 [facility] Correspondenceon 04-04-2022 Insurance Correspondence [id number]#1.00 [facility] Patient Letter [facility] January 29, 2023 EVON CORCORAN [address] [place] [address] EVON CORCORAN 1950 We are pleased that [...] in the following areas: ? Assign a Financial Sales Professional who will work with you to help [...] phone contact on 02/19/2023 at 08:00 AM. [facility]Sheila RN Chronic Financial Sales Professional [phone] opt. #2 [facility] Consent for Procedure/Surger yon 01-27-2023 Consent for Procedure/Surgery [id number]#1.00 TIFF [facility] Consent for Treatmenton 01-14 Consent for Treatment [id number]#1.00T IFF [facility] Multi-Wound Charton 01-28-20 Multi-Wound Chart [id number] 102 [id number]#1.00 TIFF [facility] Nursing Assessment - Woundon 01-27-2023 Nursing Assessment - Wound [id number]#1.00 TIFF [facility] Nursing Note - Woundon 01-27 Nursing Note - Wound [id number]#1.00 TIFF [facility] Physician Orderon 01-27-2023 Physician Order [id number]#1.00 TIFF [facility] Procedure - Woundon 01-28-20 Procedure - Wound [id number] 102 [id number]#1.00 TIFF [facility] Progress Note - Woundon 01-14 Progress Note - Wound [id number]#1.00 TIFF [facility] Ambulatory Visit Summaryon 03-28-2022 Ambulatory Visit Summary [...] With: Denton Mares DPM Where: [facility] Thursday 9:45 AM EST With: Where: [facility] Thursday 8:45 AM EST With: Gary Cerda MD Where: [facility] 2022 8:00 AM EST With: Linda Solorio CNP Where: [facility] Invalid Interpretation Code [address], [place] [address]- \.br\ Thursday 8:00 AM EST \.br\ With:\.br\ Where: [facility] Primary Care [facility] Medicine Office/Clini c Noteon 01-26-2023 Family [...] Labs were ordered, to be completed with [facility]. Mammogram and DEXA scan up to date, [...] as directed. 3. Long-term insulin use (Z79.4: skilled nursing (current) use of insulin) Patient voices understanding with proper use of insulin dosage. Follows up with labs, DM supplies and dosage adjustments as needed. Reviewed available sites that can be used to administer Insulin, patient voices understanding. Will continue as directed. 4. Chronic renal impairment, stage 3a (N18.31: Chronic kidney disease, stage 3a) Follows with [facility], Dr. Núñez. Encouraged with avoiding NSAID's. Healthy Kidney Nutritional education material provided. Goals to keep blood sugars and blood pressure under better control to reduce cardiovascular risk factors. Medications and blood work monitored with visits. Continues taking statin medication daily. 5. On statin therapy (Z79.899: Other manager intermediate (current) drug therapy) Taking Atorvastatin daily, encouraged [...] of Hepatitis C for people born between 4955-7160. Hand (more content not included)... Normal [facility] Comment on above: Result Comment: Elec tronically Signed By: Christopher WELLS DO, FAAFP\.br\Date and Time Signed: 01/26/23 17:15 EST\.br\Electronically Co-Signed By: Lesly West LPN\.br\Date and Time Co-Signed: 01/26/23 09:21 EST Nursing Assessment - Woundon 01-26-2023 Nursing Assessment - Wound [id number]#2.00 TIFF [facility] Nursing Note - Woundon 01-26 Nursing Note - Wound [id number]#2.00 TIFF [facility] Patient Educationon 01-27-20 Patient Education Caregiving Fall [...] Keep items that you use often in wwhw-dg-pmizi places. Lower the shelves around your home [...] the way. ? Do not use floor surinamese or wax that makes floors slippery. What [...] Control and Prevention, [place]: www.cdc.gov ? National [place] on Aging: www.[place].nih.gov Contact a doctor if: [...] provider. Document Revised: 12/02/2021 Document Reviewed: 10/03/2020 [employer] Patient Education ? 2022 [employer] Endocrinology Diabetes Melli (more content not included)... Normal [facility] Screenson 01-26-2023 Screens [id number]#1.00TI FF Normal [facility] Multi-Wound Charton 01-24-20 23 Multi-Wound Chart [id number] 105 [id number]#1.00 TIFF Normal [facility] Physician Orderon 01-23-2023 Physician Order [id number] 105 [id number]#1.00 TIFF Normal [facility] Consent for Treatmenton Consent for Treatment [id number]#1.00T IFF Normal [facility] Consent for Procedure/Surger yon 01-14-2023 Consent for Procedure/Surgery [id number]#1.00 TIFF Normal [facility] Consent for Procedure/Surgery [id number]#1.00 TIFF Normal [facility] Nursing Assessment - Woundon 01-14-2023 Nursing Assessment - Wound [id number]#1.00 TIFF Normal [facility] Nursing Note - Woundon 01-14 Nursing Note - Wound [id number]#2.00 TIFF [facility] CHEMISTRYOrdered By: Cynthia Serrano se on 01-13-2023 HbA1c (Bld) [Mass fraction] 11.5 % High <=5.9% [facility] ChemAutoSS Consent for Treatmenton 12-16 Consent for Treatment [id number]#1.00T IFF Normal [facility] Consent to Photographon 12-16 Consent to Photograph [id number]#1.00T IFF Normal [facility] Correspondence - Woundon Correspondence - Wound [id number]#1.00T IFF Normal [facility] Correspondence - Wound [id number]#1.00T IFF Normal [facility] Correspondence - Wound [id number]#1.00T IFF Normal [facility] [id number] 01-13-2023 HbA1c (Bld) [Mass fraction] 11.5 % High <=5.9 [facility] Comment on above: Performed By: #### 2 [id number], [id number] #### [facility] [address] [place] [address] Multi-Wound Charton 01-14-20 Multi-Wound Chart [id number] 002 [id number]#1.00 TIFF Normal [facility] Nursing Assessment - Woundon 01-13-2023 Nursing Assessment - Wound [id number]#1.00 TIFF Normal [facility] Outside Recordson 01-13-2023 Outside Records [id number] 231 [id number]#1.00T IFF Normal [facility] Patient Correspondenceon Patient Correspondence [id number]#1.00 TIFF Normal [facility] Physician Orderon 01-13-2023 Physician Order [id number] 002 [id number]#1.00 TIFF Normal [facility] Procedure - Woundon 01-14-20 Procedure - Wound [id number] 002 [id number]#1.00 TIFF Normal [facility] Progress Note - Woundon 12-16 Progress Note - Wound [id number]#1.00 TIFF Normal [facility] Insurance Correspondenceon Insurance Correspondence [id number]#1.0 0TIFF Normal [facility] Radiology Outside Office [place] yon 01-07-2023 Radiology Outside Office Copy [id number]#1.00 TIFF Normal [facility] Consent for Treatmenton 12-15 Consent for Treatment [id number]#1.00T IFF Normal [facility] Consultation Noteon 01-07-20 Consultation Note [...] red blood per rectum) / SNOMED CT 327764182 / Confirmed Breast cancer screening by mammogram / SNOMED CT 841640341 / Confirmed CAD in [place] artery / SNOMED CT 14566071 / Confirmed Change in bowel habits / SNOMED CT 098428869 / Confirmed Chronic renal impairment, stage 3a / SNOMED CT 9217733235 / Confirmed Claudication of both lower extremities / SNOMED CT 652984724 / Confirmed Colon polyp / SNOMED CT 336020262 / Confirmed Degenerative localized arthritis of hip / SNOMED CT 052568104 / Confirmed 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 / SNOMED CT 115546431 / Confirmed Diabetes / SNOMED CT 263139383 / Confirmed Diarrhea / SNOMED CT 054179218 / Confirmed Enthesopathy of left hip region / SNOMED CT 01088469 / Confirmed Familial hypercholesteremia / SNOMED CT 1626079073 / Confirmed Hemorrhoids / SNOMED CT 027236906 / Confirmed History of colon polyps / SNOMED CT 8363846067 / Confirmed History of DVT in adulthood / SNOMED CT 0366552594 / Confirmed HTN - Hypertension / SNOMED CT 3044782168 / Confirmed Hypertensive heart and chronic kidney disease without heart failure, with stage 1 through stage 4 chronic kidney disease, or unspecified chronic kidney disease / SNOMED CT 2931085880 / Confirmed noted in 12/10/2021 Nephrology Consult Note page 3. added per outpatient CDI policy. Long-term insulin use / SNOMED CT 4187213655 / Confirmed Current Medication List includes Tresiba. added per outpatient CDI policy. Lumbar disc herniation / SNOMED CT 327952750 / Confirmed Lumbar stenosis / SNOMED CT 85888658 / Confirmed Mild nonproliferative diabetic retinopathy of both eyes / SNOMED CT 996120450 / Confirmed noted in 08/21/2019 Diabetic Eye Exam. added per outpatient CDI policy. Morbid obesity / SNOMED CT 772038298 / Confirmed Non-smoker / SNOMED CT 38381103 / Confirmed Primary ovarian failure / SNOMED CT 839371693 / Confirmed Sleep apnea / SNOMED CT 123376252 / Confirmed Type 2 diabetes mellitus with hypercholesterolemia / SNOMED CT 966269160 / Confirmed linked DM with hypercholesterolemia per outpatient CDI policy. Type 2 diabetes mellitus with stage 3 chronic kidney disease / SNOMED CT 212992760 / Confirmed linked DM with CKD (more content not included)... Normal [facility] Comment on above: Result Comment: Elec tronically Signed By: Prashant PIMENTEL, Gary Damon.br\Date and Time Signed: 01/06/23 09:13 EDT HIPAA Forms Officeon 023 HIPAA Forms Office [id number]#1.00 TIFF Normal [facility] Legal Correspondence Officeo n 01-06-2023 Legal Correspondence Office [id number]#1.00 TIFF [facility] Legal Correspondence Office [id number]#1.00 TIFF Normal [facility] Office/Clinic Note-Physician on 01-06-2023 Office/Clinic Note-Physician [id number]#1.00 TIFF Normal [facility] Patient Correspondenceon Patient Correspondence [id number]#1.00 TIFF Normal [facility] Patient Correspondence [id number]#1.00 TIFF Normal [facility] Patient Correspondence [id number]#1.00 TIFF Normal [facility] Patient Correspondence [id number]#1.00 TIFF Normal [facility] Patient Correspondence [id number]#1.00 TIFF Normal [facility] Patient History Officeon Patient History Office [id number]#1.00 TIFF Normal [facility] Radiology Outside Office [place] yon 01-06-2023 Radiology Outside Office Copy [id number]#1.00 TIFF Normal [facility] Consent for Treatmenton 12-14 Consent for Treatment [id number]#1.00T IFF Normal [facility] MRI Pelvis (Bony) w/o contra [...] MD Transcribed by: KATEY Technologist: NUBIA Normal [facility] RAD - MRI Screening Formon 1 RAD - MRI Screening Form [id number]#1.00 TIFF Normal [facility] Physician Orderon 12-24-2022 Physician Order [id number]#1.00T IFF Normal [facility] Physician Order [id number]#1.00T IFF Normal [facility] Outside Records Officeon Outside Records Office [id number]#1.00 TIFF Normal [facility] Referrals Officeon 3 Referrals Office [id number]#1.00 TIFF Normal [facility] Consultation Noteon 12-23-19 23 Consultation Note [id number]#1.00T IFF Normal [facility] Physician Orderon 12-22-2022 Physician Order [id number]#1.00 TIFF Normal [facility] Ambulatory Visit Summaryon 1 Ambulatory Visit Summary NILOYOKASTALAW Kennedy :1950 Visit Date:12/18/2022 Ambulatory Visit Instructions Your Diagnosis Enthesopathy of left hip region Hypertensive heart and chronic kidney disease without heart failure, with stage 1 through stage 4 chronic kidney disease, or unspecified chronic kidney disease Long-term insulin use BMI 36.0-36.9,adult Morbid obesity Chronic renal impairment, stage 3a CAD in [place] artery Type 2 diabetes mellitus with hypercholesterolemia [...] Appointments Thursday 8:00 AM EST With: Where: [facility] Normal [address] [address]- \.br\ You Need to Schedule the Following Appointments\.br\ Follow Up with Christopher WELLS DO, FAAFP, FAM, PED When: In 3 months\.br\ Where:\.br\ [address], [address]br\ [place] [address]-\.br\ \.br\ Medications\.br\ What How Much When Why Instructions\.br\ New doxycycline (doxycycline hyclate 100 mg Cap) 1 Capsules By Mouth 2 times a day Venous stasis ulcer Refills: 1 Pickup at [id number]\.br\ Unchanged amlodipine (amLODIPine 5 mg Tab) 1 [...] Mouth Every day\.br\ Pharmacy Information\.br\ [id number]: [address] [place], [place] [id number] [phone]\.br\ Medications and Immunizations Administered\.br\ Not Given\.br\ influenza virus vaccine, inactivated, Patient Refuses\.br\ Allergies\.br\ Aldactazide (Hives)\.br\ Cardura (Unknown)\.br\ Diovan (Unknown)\.br\ Glucophage\.br\ Hytrin\.br\ Prinivil\.br\ Zestril (Diarrhea)\.br\ hydrochlorothiazi de-lisinopril (Diarrhea)\.br\ Problems\.br\ Ongoing - Any problem that you are currently receiving treatment for.\.br\ BRBPR (bright red blood per rectum)\.br\ Breast cancer screening by mammogram\.br\ CAD in [place] artery\.br\ Change in bowel habits\.br\ Chronic renal [...] home:\.br\ Medicines\.br\ ? \.br\ Take or apply jqpp-jju-pdiuphm and prescription medicines only as told by [...] cannot use soap and water, use hand responder.\.br\ ? \.br\ Change your bandage as told [...] for help if you feel david [facility] Family Medicine Office/Clini c Noteon [...] ER daily. 3. Long-term insulin use (Z79.4: skilled nursing (current) use of insulin) Tresiba 50 units [...] in 6 (more content not included)... Normal [facility] Comment on above: Result [...] at home: Medicines ? Take or apply kfvi-ror-ogmtotz and prescription medicines only as told by [...] cannot use soap and water, use hand responder. ? Change your bandage as told by [...] day for signs of infection. ? Take aqcf-pth-gjbrgyb and prescription medicines only as told by your doctor. ? Keep all follow-up visits as told by your doctor. This is important. This information is not intended to replace advice given to you by your health care provider. Make sure you discuss any questions you have with your health care provider. Document Revised: 12/26/2021 Document Reviewed: 12/26/2021 [employer] Patient Education ? 2022 [employer] Normal [facility] Consultation Noteon 12-16-19 Consultation Note [id number]#1.00C D:127 Normal [facility] MRI Spine Lumbar w/o Contras [...] by: KATEY Technologist: NUBIA Technical Comments None [facility] Consent for Treatmenton 11-15 Consent for Treatment [id number]#1.00C D:127 Normal [facility] RAD - MRI Screening Formon 0 12-08-2022 RAD - MRI Screening Form [id number]#1.00 CD:127 Normal [facility] Physician Orderon 11-26-2022 Physician Order [id number]#1.00CD :127 Normal [facility] Physician Order [id number]#1.00CD :127 Normal [facility] BD Bone Density DEXAon [...] MD Transcribed by: KATEY Technologist: TRISTAN Gonzalez [facility] [place] Mamm Screen w/CAD if [...] very important to your health. The current [employer] and National Comprehensive Cancer [...] 2-Benign finding Recommendation: Normal interval follow-up Normal [facility] Consent for Treatmenton 11-14 Consent for Treatment [id number]#1.00C D:127 Normal [facility] Consultation Noteon 11-24-19 Consultation Note [id number]#1.00CD :127 Normal [facility] Consultation Noteon 11-14-19 Consultation Note [id number]#1.00C D:127 Normal [facility] Family Medicine Office/Clini c Noteon [...] and some weakness, I take WC to [place] so I walk and do Wheel Chair. Pain stays in the hip. After walking approximately 10 minutes at [place] patient needs to get into wheelchair secondary to the pain in her left hip. Patient reports no poor color no radiation of pain into left thigh and nor leg nor foot. Diabetes is now managed per Dr. Ruggiero, her last A1c at Dr. Ruggiero's office was 8.9 and the 1 prior to that was 13. Dr. Oliveira is her fiberglass roller and she believes she sees him next [...] We will refer to orthopedics here at [facility]. Physical therapy [facility]. Patient defers x-rays and well allow access orthopedics to perform at time of evaluation. Discussed possibility of bursitis and possible injection under fluoroscopy via orthopedics Ordered: [facility] External Ambulatory Referral [facility] Out[place] Evaluate Patient, Develop a Plan of Care, & Implement Plan (more content not included)... Normal [facility] Comment on above: Result [...] these instructions at home: Medicines ? Take vici-sky-oqqwsbf and prescription medicines only as told by [...] Reviewed: 02/25/2022 [employer] Patient Education ? 2022 [employer] Normal [facility] Physician Referralon 023 Physician Referral [id number]#1.00 CD:127 Normal [facility] US arterial duplex LE on 0 11-04-2022 US arterial duplex [address] [place] [address] Ultrasound Report Signed Patient: Evon Corcoran MR#: [id number] 844 : 1950 Acct:[id number] Age/Sex: 72 / F ADM Date: 11/04/22 Loc: [facility] Room: Type: REG CLI Attending Dr: Renetta Barahona [employer]icki[employer] Ordering Provider: Renetta Barahona APRN Date of [...] Miguel Membreno M.D.11/04/2022 1:09 PM Dictation Location: [place] [address] Tech: Adina Zuñiga Transcribed By: RICH 11/04/22 1309 Dictated By: Miguel Membreno MD 11/04/22 1307 Signed By: 11/04/22 1309 [facility] US ankle/arm indiceson 11-03 US ankle/arm indices [facility] [address] [address] Ultrasound Report Signed Patient: Evon Corcoran MR#: [id number] 844 : 1950 Acct:[id number] Age/Sex: 72 / F ADM Date: 11/03/22 Loc: [facility] Room: Type: REG CLI Attending Dr: Miguel [...] Miguel Membreno M.D.11/03/2022 10:26 AM Dictation Location: [place] [address] Tech: Melita Pike Transcribed By: RICH 11/03/22 1026 Dictated By: Miguel Membreno MD 11/03/22 1024 Signed By: 11/03/22 1026 [facility] CHEMISTRYOrdered By: SYSTEM SYSTEM on 10-31-2022 Albumin [...] rate/Area] 43 mL/min/1.73 m2 Low >=59mL/min/1.73 m2 [facility] Chem S Glucose [Mass/Vol] 316 mg/dL High 55 - 199 mg/dL [facility] Remisol Phosphate [Mass/Vol] 3.8 mg/dL Normal 1.9 - 4.6 mg/dL [facility] Remisol Potassium [Moles/Vol] 4.2 mmol/L Normal 3.5 - 5.3 mmol/L [facility] Remisol Sodium [Moles/Vol] 138 mmol/L Normal 135 - 145 mmol/L [facility] Remisol Urea nitrogen [Mass/Vol] 28 mg/dL High 5 - 21 mg/dL [facility] Remisol Urea nitrogen/Creatinine [Mass ratio] 22 mg/mg High 10 - 20 [facility] Remisol CHEMISTRYOrdered By: Jeniffer Rosas on 10-31-2022 Albumin Elph (U) [Mass fraction] 8.4 mg/dL Invalid Interpretation Code [facility] Remisol Creatinine (U) [Mass/Vol] 132.6 mg/dL Invalid Interpretation Code [facility] Remisol U Prot/Creat Ratio 63.30 mg/gm Cr Normal 0.00 - 200.00 mg/gm Cr [facility] Remisol Consent for Treatmenton 10-14 Consent for Treatment [id number]#1.00C D:127 Normal [facility] Physician Orderon 10-31-2022 Physician Order [id number]#1.00 CD:127 Normal [facility] Renal Panelon 10-31-2022 Albumin [Mass/Vol] 3.4 g/dL Normal 3.3-5.0 [facility] Comment on above: Performed By: #### 1 [id number], [id number] #### [facility] [address] [place] [address] Anion gap [Moles/Vol] 11 mmol/L Normal 6-16 [facility] Comment on above: Performed By: #### 1 [id number], [id number] #### [facility] [address] [place] [address] Calcium [Mass/Vol] 8.4 mg/dL Low 8.9-11.1 [facility] Comment on above: Performed By: #### 1 [id number], [id number] #### [facility] [address] [place] [address] Chloride [Moles/Vol] 104 mmol/L Normal 101-111 [facility] Comment on above: Performed By: #### 1 [id number], [id number] #### [facility] [address] [place] [address] CO2 [Moles/Vol] 27 mmol/L Normal 21-31 [facility] Comment on above: Performed By: #### 1 [id number], [id number] #### [facility] [address] [place] [address] Creatinine [Mass/Vol] 1.3 mg/dL Normal 0.5-1.3 [facility] Comment on above: Performed By: #### 1 [id number], [id number] #### [facility] [address] [place] [address] Glucose [Mass/Vol] 316 mg/dL High 55-199 [facility] Comment on above: Result Comment: If t his glucose result represents a fasting glucose, interpretation should refer to the following reference range: 55-99 mg/dL Performed By: #### 1 [id number], [id number] #### [facility] [address] [place] [address] Phosphate [Mass/Vol] 3.8 mg/dL Normal 1.9-4.6 [facility] Comment on above: Performed By: #### 1 [id number], [id number] #### [facility] [address] [place] [address] Potassium [Moles/Vol] 4.2 mmol/L Normal 3.5-5.3 [facility] Comment on above: Performed By: #### 1 [id number], 92339297 #### [facility] [address] [place] [address] Sodium [Moles/Vol] 138 mmol/L Normal 135-145 [facility] Comment on above: Performed By: #### 1 3828814, 97685977 #### [facility] [address] [place] [address] Urea nitrogen [Mass/Vol] 28 mg/dL High 5-21 [facility] Comment on above: Performed By: #### 1 [id number], 09227805 #### [facility] [address] [place] [address] Urea nitrogen/Creatinine [Mass ratio] 22 No Units High 10-20 [facility] Comment on above: Performed By: #### 1 [id number], [id number] #### [facility] [address] [place] [address] U Protein/Creat Ratioon 10-14 Albumin Elph (U) [Mass fraction] 8.4 mg/dL Invalid Interpretation Code [facility] Comment on above: Result Comment: The reference range and other method performance specifications have not been established for this test; results should be integrated into the clinical context for interpretation. Performed By: #### 1 [id number], [id number] ####[facility] [address] [place] [address] Creatinine (U) [Mass/Vol] 132.6 mg/dL Invalid Interpretation Code [facility] Comment on above: Result Comment: The reference range and other method performance specifications have not been established for this test; results should be integrated into the clinical context for interpretation. Performed By: #### 1 [id number], [id number] ####[facility] [address] [place] [address] U Prot/Creat Ratio 63.30 mg/gm Cr Normal .00-200.00 [facility] Comment on above: Performed By: #### 1 [id number], [id number] ####[facility] [address] [place] [address] URINALYSISOrdered By: Rosa Chacon on 10-31-2022 Bacteria [...] AM) Normal Negative [facility] UA Auto SS [place].plasma/Lith ium.RBC (Bld) [Mass ratio] 0-3 /HPF Normal [...] [facility] UA Auto SS Urobilinogen Qn (U) 0.9504242 {Donell'U}/dL Normal 0.0 - 1.0 EU/dL [facility] UA Auto SS WBC Auto Ql (U) 1+ *ABN* (10/31/22 7:33 AM) Invalid Interpretation Code Negative [facility] UA Auto SS WBC LM.HPF (Urine sed) [#/Area] 6-15 /HPF Invalid Interpretation Code 0-5/HPF [facility] UA Auto SS Urinalysison 10-31-2022 Bacteria LM Ql (Urine sed) 1+ /HPF Abnormal Trace [facility] Comment on above: Performed By: #### 1 [id number], [id number] ####[facility] [address] [place] [address] Bilirubin Ql (U) Negative Normal Negative [facility] Comment on above: Performed By: #### 1 [id number], 17798070 ####[facility] [address] [place] [address] Clarity (U) CLEAR Normal Clear [facility] Comment on above: Performed By: #### 1 [id number], 23955517 ####[address] [address] Color (U) YELLOW Normal Yellow [facility] Comment on above: Performed By: #### 1 [id number], 79988974 ####[address] [address] Epithelial cells.squamous LM.HPF (Urine sed) [#/Area] 0-2 Normal 0-2 [facility] Comment on above: Performed By: #### 1 [id number], 49650795 ####[address] [address] Glucose Test strip (U) [Mass/Vol] 2+ Abnormal Negative [facility] Comment on above: Performed By: #### 1 [id number], 08752760 ####[address] [address] Hemoglobin Ql (U) Negative Normal Negative [facility] Comment on above: Performed By: #### 1 [id number], 26888205 ####[address] [address] Ketones (U) [Mass/Vol] Negative Normal Negative [facility] Comment on above: Performed By: #### 1 [id number], 97482767 ####[address] [address] [place].plasma/Lith ium.RBC (Bld) [Mass ratio] 0-3 Normal 0-3 [facility] Comment on above: Performed By: #### 1 [id number], 33493682 ####[facility] [place] [address] Nitrite Ql (U) Negative Normal Negative [facility] Comment on above: Performed By: #### 1 [id number], 14082762 ####[address] [address] pH (U) 6.0 [pH] Invalid Interpretation Code 5.0-9.0 [facility] Comment on above: Performed By: #### 1 [id number], 37691550 ####[address] [address] Protein (U) [Mass/Vol] Negative Normal Negative [facility] Comment on above: Performed By: #### 1 [id number], 03106418 ####[address] [address] Specific gravity (U) [Rel density] 1.025 Invalid Interpretation Code 1.005-1.030 [facility] Comment on above: Performed By: #### 1 [id number], 70835488 ####[address] [address] Type of Urine collection method Clean Catch Normal [facility] Comment on above: Performed By: #### 1 [id number], 97543828 ####[address] [address] Urobilinogen Qn (U) 0.2 {Donell'U}/dL Normal 0.0-1.0 [facility] Comment on above: Performed By: #### 1 [id number], 69263604 ####[address] [address] WBC Auto Ql (U) 1+ Abnormal Negative [facility] Comment on above: Performed By: #### 1 [id number], 35748773 ####[facility] [address] [place] [address] WBC LM.HPF (Urine sed) [#/Area] 6-15 Abnormal 0-5 [facility] Comment on above: Performed By: #### 1 [id number], 23431154 ####[facility] [address] [place] [address] eGFRon 10-31-2022 GFR/1.73 sq M.predicted among non-blacks MDRD (S/P/Bld) [Vol rate/Area] 43 mL/min/1.73 m2 Low >=59 [facility] Comment on above: Order Comment: Order added by Discern Expert. Result Comment: Sampler And Test Preparer jin kidney disease could be indicated at eGFR's of less than 60 mL/min/1.73m2. Kidney failure is indicated at less than 15 mL/min/1.73m2. Performed By: #### 1 [id number], 34608581 #### [facility] [address] [place] [address] RAD - Ultrasound Reporton RAD - Ultrasound Report [id number]#1.00C D:127 Normal [facility] Retail - Clinical Noteon Retail - Clinical Note [id number]#1.00C D:127 Normal [facility] VASC LAB Carotid Artery Dupl ex Ultrasounon 09-17-2022 VASC LAB Carotid Artery Duplex Ultrasoun [address], [address] [place] [address] Vascular Lab Report Carotid Artery Duplex Ultrasound Patient Name: EVON Mckeon Physician: [id number] Fariha Guidry MD, [facility] Study Date: 09/17/2022 Referring FARIHA GUIDRY Physician: MRN/PID: [id number] PCP: Christopher Wells DO Accession/Order#: [id number] CC Report to: Date of : 1950 Technologist: PRAVEENA Gender: F Technologist 2: Admission Status: Outpatient Location Performed: [facility] Diagnosis/ICD: W48-Oifzpjdeu and giddiness; I73.9-Peripheral vascular disease, unspecified Indication: CAD, PTCA, High Risk Medication Use, Vascular Disease, Diabetes, HTN, Hyperlipidemia, CKD-Stage III, DVT, MORALES, Obesity Procedure/CPT: 33702 Cerebrovascular Carotid Duplex scan complete-45324 CONCLUSIONS: Right Carotid: Findings are consistent with [...] cm/s Right Left ICA/CCA Ratio 1.4 2.0 00093 Fariha Guidry MD, FACC Final Normal [facility] VASC LAB Carotid Artery Dupl ex Ultrasoundon 09-17-2022 US.doppler Carotid arteries -[facility] Heart-Sandu feliz 250 DO Work Phone: Gastroenterology [...] (bright red blood per rectum) CAD in [place] artery Change in bowel habits Chronic renal impairment, stage 3a Claudication of both lower extremities Colon polyp Diarrhea Familial hypercholesteremia Hemorrhoids History of colon polyps History of DVT (more content not included)... Normal [facility] Comment on above: Result [...] Bulgur wheat. Millet. Quinoa. Bran muffins. Popcorn. Flint wafer crackers. Meats and other proteins Solvay beans, kidney beans, and chase beans. Soybeans. [...] Cream cheese. Sour cream. Fats and oils [place]. Beverages Soft drinks. Other foods Cakes and [...] Document Revised: (more content not included)... Normal [facility] Medication Refillon 08-23-19 Medication Refill [id number]#1.00C D:127 Normal [facility] CBC w/Indiceson 08-01-2022 Erythrocyte distribution width (RBC) [Ratio] 14.0 % Normal 10.9-14.2 [facility] Comment on above: Performed By: #### 2 134590, 8746655 #### [facility] [address] [place] [address] Hematocrit (Bld) [Volume fraction] 39.9 % Normal 34.0-46.0 [facility] Comment on above: Performed By: #### 2 032264, 0260474 #### [facility] [address] [place] [address] Hemoglobin (Bld) [Mass/Vol] 12.7 g/dL Normal 12.0-16.0 [facility] Comment on above: Performed By: #### 2 410465, 6814311 #### [facility] [address] [place] [address] MCH (RBC) [Entitic mass] 27.9 pg Normal 27.0-34.0 [facility] Comment on above: Performed By: #### 2 381137, 3558053 #### [facility] [address] [place] [address] MCHC (RBC) [Mass/Vol] 31.8 g/dL Normal 31.4-36.0 [facility] Comment on above: Performed By: #### 2 331041, 6554166 #### [facility] [address] [place] [address] MCV (RBC) [Entitic vol] 87.6 fL Normal 80.0-100.0 [facility] Comment on above: Performed By: #### 2 479588, 4157914 #### [facility] [address] [place] [address] Platelet mean volume (Bld) [Entitic vol] 10.5 fL Normal 6.4-10.8 [facility] Comment on above: Performed By: #### 2 020523, 3193207 #### [facility] [address] [place] [address] Platelets (Bld) [#/Vol] 227.0 E9/L Normal 150.0-500.0 [facility] Comment on above: Performed By: #### 2 392573, 6697775 #### [facility] [address] [place] [address] [id number] RBC (Bld) [#/Vol] 4.6 E12/L Normal 4.3-5.9 [facility] Comment on above: Performed By: #### 2 [id number], [id number] #### [facility] [address] [place] [address] WBC corrected for nucl RBC Auto (Bld) [#/Vol] 7.3 E9/L Normal 4.0-11.0 [facility] Comment on above: Performed By: #### 2 [id number], [id number] #### [facility] [address] [place] [address] Consent for Treatmenton 07-14 Consent for Treatment [id number] D:127 Normal [facility] Lipid Panelon 08-01-2022 Cholesterol [Mass/Vol] 128 mg/dL Normal 120-200 [facility] Comment on above: Performed By: #### 2 [id number], [id number] #### [facility] [address] [place] [address] Cholesterol in HDL [Mass/Vol] 47 mg/dL Invalid Interpretation Code [facility] Comment on above: Result Comment: HDL > or equal to 60 mg/dL: Low cardiovascular risk HDL < 40 mg/dL : High cardiovascular risk Performed By: #### 2 [id number], [id number] #### [facility] [address] [place] [address] Cholesterol in LDL [Mass/Vol] 59 mg/dL Normal <=129 [facility] Comment on above: Performed By: #### 2 [id number], [id number] #### [facility] [address] [place] [address] Cholesterol in VLDL [Mass/Vol] 27 mg/dL Normal 7-40 [facility] Comment on above: Performed By: #### 2 [id number], [id number] #### [facility] [address] [place] [address] Triglyceride [Mass/Vol] 133 mg/dL Normal <=149 [facility] Comment on above: Performed By: #### 2 [id number], [id number] #### [facility] [address] [place] [address] Physician Orderon 08-01-2022 Physician Order [id number]#[id number] CD:127 Normal [facility] Retail - Clinical Noteon Retail - Clinical Note [id number]#1.00C D:127 Normal [facility] MICRO OTHER TESTSOrdered By: Cynthia Case on 05-08-2022 Fecal WBC Lactoferrin Negative (05/08/22 9:00 AM) Normal Negative [facility] Man Sero Blood Urea Nitrogenon 2022 Urea nitrogen [Mass/Vol] 30 mg/dL High 12-06 [facility] Comment on above: Performed By: #### C REAT, BUN #### [facility] [address] [place] [id number] [place] Creatinineon 04-07-2022 Creatinine [Mass/Vol] 1.21 mg/dL High 0.44-1.03 [facility] Comment on above: Performed By: #### C REAT, BUN #### [facility] [address] [place] [address] [place] Creatinine Clr Calc Pharmacy 46.76 [facility] Comment on above: Result Comment: PERF ORMED BY: [place] [address] PATHOLOGIST PASTE WORKER AIRAM ROMEO M.D. Performed By: #### C REAT, BUN #### [facility] [address] Estimated GFR ( Laura 53 [facility] Comment on above: Result Comment: GFR estimated reference range: According to KDOQI guidelines, <60 ml/min/1.73m2 is sufficient to diagnose a patient with chronic kidney disease. Performed By: #### C REAT, BUN #### [facility] [address] [place] [address] [place] Estimated GFR (Non- Am 44 [facility] Comment on above: Performed By: #### C REAT, BUN #### [facility] [address] [place] [address] [place] Creatinine and Glomerular fi ltration rate.predicted panel (S/P/Bld)Ordered By: Miguel Membreno on 04-07-2022 Creatinine [Mass/Vol] 1.21 mg/dL 0.44-1.03 [facility] Estimated glomerular filtrat ion rate (GFR) non- AmericanOrdered By: Miguel Membreno on 04-07-2022 GFR/1.73 sq M.predicted among non-blacks MDRD (S/P/Bld) [Vol rate/Area] 44 mL/Min [facility] No Panel InformationOrdered By: Miguel Membreno on 04-07-2022 Estimated GFR () 53 mL/Min [facility] Comment on above: GFR estimated refere nce range: According to KDOQI guidelines, <60 ml/min/1.73m2 is sufficient to diagnose a patient with chronic kidney disease. Pharmacy Creatinine Clearance (Chem 46.76 [facility] Serum or plasma urea nitroge n measurement (mass/volume)Ordered By: Miguel Membreno on 04-07-2022 Urea nitrogen [Mass/Vol] 30 mg/dL 12-06 [facility] CHEMISTRYOrdered By: Genaro Rivera on 03-31-2022 Albumin Elph (U) [Mass fraction] mg/dL Invalid Interpretation Code [facility] Remisol Creatinine (U) [Mass/Vol] 95.7 mg/dL Invalid Interpretation Code [facility] Remisol U Prot/Creat Ratio [facility] Invalid Interpretation Code 0.00 - 200.00 [facility] Remisol CHEMISTRYOrdered By: SYSTEM SYSTEM on 03-31-2022 Albumin [Mass/Vol] 3.7 g/dL Normal 3.3 - 5.0 gm/dL F [facility] Remisol Anion gap [Moles/Vol] 16 mmol/L Normal 6 - 16 mEq/L [facility] Remisol Calcium [Mass/Vol] 8.8 mg/dL Low 8.9 - 11.1 mg/dL [facility] Remisol Chloride [Moles/Vol] 103 mmol/L Normal 101 - 111 mmol/L [facility] Remisol CO2 [Moles/Vol] 25 mmol/L Normal 21 - 31 mmol/L [facility] Remisol Creatinine [Mass/Vol] 1.4 mg/dL High 0.5 - 1.3 mg/dL [facility] Remisol GFR/1.73 sq M.predicted among blacks MDRD (S/P/Bld) [Vol rate/Area] 45 mL/min/1.73 m2 Low >=59mL/min/1.73 m2 [facility] Chem S GFR/1.73 sq M.predicted among non-blacks MDRD (S/P/Bld) [Vol rate/Area] 37 mL/min/1.73 m2 Low >=59mL/min/1.73 m2 [facility] Chem S Glucose [Mass/Vol] 203 mg/dL High 55 - 199 mg/dL [facility] Remisol Magnesium [Mass/Vol] 2.1 mg/dL Normal 1.3 - 2.4 mg/dL [facility] Remisol Phosphate [Mass/Vol] 4.7 mg/dL High 1.9 - 4.6 mg/dL [facility] Remisol Potassium [Moles/Vol] 3.8 mmol/L Normal 3.5 - 5.3 mmol/L [facility] Sodium [Moles/Vol] 140 mmol/L Normal 135 - 145 mmol/L [facility] Urea nitrogen [Mass/Vol] 29 mg/dL High 5 - 21 mg/dL [facility] Urea nitrogen/Creatinine [Mass ratio] 21 mg/mg High 10 - 20 [facility] Remisol HEMATOLOGYOrdered By: Chai Reid on 03-31-2022 Hematocrit (Bld) [Volume fraction] 39.5 % Normal 34.0 - 46.0 % [facility] HemeAutoSS Hemoglobin (Bld) [Mass/Vol] 12.6 g/dL Normal 12.0 - 16.0 gm/dL [facility] HemeAutoSS Reference Laboratory Testing Ordered By: Angelica Casas on 03-31-2022 Test Code 075685 Invalid Interpretation Code [facility] SendOuts Test Code 332227 Invalid Interpretation Code [facility] SendOutsSS Test Name MPO AB Invalid Interpretation Code [facility] SendOutsSS Test Name PR3 AB Invalid Interpretation Code [facility] SendOutsSS URINALYSISOrdered By: Elizabeth Rosas on 03-31-2022 Bilirubin Ql (U) Negative (03/31/22 7:43 AM) Normal Negative [facility] UA Auto SS Clarity (U) Clear (03/31/22 7:43 AM) Normal Clear [facility] UA Auto SS Color (U) Yellow (03/31/22 7:43 AM) Normal Yellow [facility] UA Auto SS Epithelial cells.squamous LM.HPF (Urine sed) [#/Area] 0-2 /HPF Normal 0-2/HPF [facility] UA Auto SS Glucose Test strip (U) [Mass/Vol] 3+ *ABN* (03/31/22 7:43 AM) Invalid Interpretation Code Negative [facility] UA Auto SS Hemoglobin Ql (U) Negative (03/31/22 7:43 AM) Normal Negative [facility] UA Auto SS Ketones (U) [Mass/Vol] Negative (03/31/22 7:43 AM) Normal Negative [facility] UA Auto SS [place].plasma/Lith ium.RBC (Bld) [Mass ratio] 0-3 /HPF Normal 0-3/HPF [facility] UA Auto SS Nitrite Ql (U) Negative (03/31/22 7:43 AM) Normal Negative [facility] UA Auto SS pH (U) 5.5 *NA* (03/31/22 7:43 AM) Invalid Interpretation Code 5.0 - 9.0 [facility] UA Auto SS Protein (U) [Mass/Vol] Negative (03/31/22 7:43 AM) Normal Negative [facility] UA Auto SS Specific gravity (U) [Rel density] 1.015 *NA* (03/31/22 7:43 AM) Invalid Interpretation Code 1.005 - 1.030 [facility] UA Auto SS UA Spec Desc Clean Catch (03/31/22 7:43 AM) Normal [facility] UA Auto SS Urobilinogen Qn (U) 0.7925561 {Donell'U}/dL Normal 0.0 - 1.0 EU/dL [facility] UA Auto SS WBC Auto Ql (U) Negative (03/31/22 7:43 AM) Normal Negative [facility] UA Auto SS WBC LM.HPF (Urine sed) [#/Area] 0-5 /HPF Normal 0-5/HPF [facility] UA Auto SS US ankle/arm indiceson 03-31 US ankle/arm indices [place] [address] Ultrasound Report Signed Patient: Evon Corcoran MR#: [id number] : 1950 Acct:[id number] Age/Sex: 71 / F ADM Date: 03/31/22 Loc: [facility]: [facility]: Miguel Membreno MD Ordering [...] Miguel Membreno M.D.03/31/2022 3:38 PM Dictation Location: [place] [address] Tech: Christy Chiqui Transcribed By: RICH 03/31/221537 Dictated By: Miguel Membreno MD 03/31/221536 Signed By: 03/31/221537 [facility] CHEMISTRYOrdered By: Jenni Lazaro on 02-12-2022 HbA1c (Bld) [Mass fraction] 9.3 % High <=5.9% [facility] ChemAutoSS Office Visit (Cardiology)on 01-15-2022 Follow-up visit Diagnoses/Problems Assessed Atherosclerosis of [place] coronary artery [place] heart without angina pectoris (414.01) (I25.10) Status [...] vein thrombosis (453.40) (I82.409) Orders Atherosclerosis of [place] coronary artery [place] heart without angina pectoris Renew: Aspirin EC [...] complications. 5. Diabetes, managed by endocrinology in [place]. A1c remains above target 6. Hypertension completely under control. 7. High-risk medication with Xarelto, so far well-tolerated. Takes baby aspirin twice weekly 8. Stage III chronic kidney disease to be monitored closely 9. Recent diagnosis of intermittent claudications and PAD followed by vascular surgery Dr. Daniel in [place], she is currently going through walking exercise program Fariha Guidry MD, [facility] Current Meds Medication NameInstruction amLODIPine Besylate 5 [...] and no (more content not included)... [facility] On Call Tobacco Screening.on 022 Fall risk assessment a) No falls within the last year [facility] [employer] 600 DO Work Phone: Tobacco use status [facility] b) No [facility] Man[place] DO Work Phone: CHEMISTRYOrdered By: Lab ROP User on 01-06-2022 Glucose [Mass/Vol] 166 mg/dL High 55 - 99 mg/dL [facility] C POC Subsection POC Device SN [id number] Invalid Interpretation Code [facility] POC Subsection POC User ID [id number] Invalid Interpretation Code [facility] POC Subsection POC Username ROSSY ZEPEDA Invalid Interpretation Code [facility] POC Subsection Glucose [Mass/Vol] 166 mg/dL High 55 - 99 mg/dL [facility] C POC Subsection Comment on above: Result Comment: Rain evert Meter POC Device SN [id number] Invalid Interpretation Code [facility] POC Subsection POC User ID [id number] Invalid Interpretation Code [facility] POC Subsection POC Username MILES, ROXANA Invalid Interpretation Code [facility] POC Subsection CHEMISTRYOrdered By: Lab ROP User on 01-01-2022 Glucose [Mass/Vol] 185 mg/dL High 55 - 99 mg/dL [facility] C POC Subsection Comment on above: Result Comment: Rain evert Meter POC Device SN [id number] Invalid Interpretation Code [facility] POC Subsection POC User ID [id number] Invalid Interpretation Code [facility] POC Subsection POC [...] rate/Area] 54 mL/min/1.73 m2 Low >=59mL/min/1.73 m2 [facility] Chem S GFR/1.73 sq M.predicted among non-blacks MDRD (S/P/Bld) [Vol rate/Area] 44 mL/min/1.73 m2 Low >=59mL/min/1.73 m2 [facility] Chem S Globulin (S) [Mass/Vol] 3.8 g/dL [...] a) No falls within the last year [facility] [employer] 600 DO Work Phone: Heart Rate Regular [facility] [employer] 600 DO Work Phone: Office Visit (Cardiology)on [...] Vital Signs Recorded: 28May2021 12:25PMRecorded: 28May2021 12:21PM Hfzelvkc696, LUE, Jxjvpfs728, RUE, Sitting Noefdpdub77, LUE, Kemhflq28, RUE, Sitting Heart Rate68, R Radial Pulse QualityRegular, R Radial Height5 ft 5 in Uropyk610 lb 3.2 oz BMI Gsdkhfdfqe31.98 kg/m2 BSA Calculated2 Fall Screeninga) No falls within the last year Signatures Electronically signed by : Fariha Guidry MD; May 28 2021 3:34PM EST (Author) Normal [facility] On Call Laboratory - Chemistry and C hemistry - challengeon 05-11-2021 Cholesterol [Mass/Vol] 96 mg/dL Normal <=129 [facility] [employer] 250 DO Work Phone: Cholesterol in LDL [Mass/Vol] 39 mg/dL Normal 7-40 [facility] [employer] 250 DO Work Phone: CO2 [Moles/Vol] 24 mmol/L Normal 21-31 [facility] 250 DO Work Phone: Glucose [Mass/Vol] 217 mg/dL above high threshold 55-[address] [place] [address] DO Work Phone: Comment on above: If this glucose resu lt represents a fasting glucose, interpretation should refer to the following reference range: 55-99 mg/dL Laboratory - Hematology and Cell countson 05-11-2021 Erythrocyte distribution width (RBC) [Ratio] 13.2 % Normal 10.9-14.2 [facility] DO Work Phone: Hematocrit (Bld) [Volume fraction] 39.5 % Normal 34.0-46.0 [place] [address] DO Work Phone: Platelet mean volume (Bld) [Entitic vol] 11.0 fL above high threshold 6.4-10.8 [facility] DO Work Phone: No Panel Informationon 05-11 14 {mEq/L} Normal 6-16 [place] [address] DO Work Phone: 102 mmol/L Normal 101-111 [place] [address] DO Work Phone: 4.2 mmol/L Normal 3.5-5.3 [facility] feliz 250 DO Work Phone: 136 mmol/L Normal 135-145 [facility] feliz 250 DO Work Phone: 8.9 mg/dL Normal 8.9-11.1 [facility] 250 DO Work Phone: 25 {No_Units} above high threshold 10-20 [facility]Social[facility] DO Work Phone: 1.0 mg/dL Normal 0.5-1.3 [facility] Heart-Torie piper 250 DO Work Phone: 25 mg/dL above high threshold 5-21 -[facility] Satnam piper 250 DO Work Phone: >60 Normal >=59 [facility] Satnam piper 250 DO Work Phone: Comment on above: eGFR is race adjuste d. AA=. 55 {mL/min/1.73_m2} below low threshold >=59 [facility] Satnam piper 250 DO Work Phone: Comment on above: Chronic kidney disea se could be indicated at eGFR's of less than 60 mL/min/1.73m2. Kidney failure is indicated at less than 15 mL/min/1.73m2. 54 {Int._Unit/L} above high threshold 6-46 -[facility] Satnam piper 250 DO Work Phone: 67 {Int._Unit/L} above high threshold 5-43 [facility] Satnam piper 250 DO Work Phone: 197 mg/dL above high threshold <=149 [facility] Satnam piper 250 DO Work Phone: 49 mg/dL [facility] Satnam piper 250 DO Work Phone: Comment on above: HDL > or equal to 60 mg/dL: Low cardiovascular riskHDL < 40 mg/dL : High cardiovascular risk 193 mg/dL Normal 120-200 [facility] Satnam piper 250 DO Work Phone: 229.0 {E9/L} Normal 150.0-500.0 [facility] Satnam piper 250 DO Work Phone: Comment on above: Slide reviewed by BR Platelet count verified using smear estimate. 85.4 fL Normal 80.0-100.0 [facility] Satnam piper 250 DO Work Phone: 33.5 {gm/dL} Normal 31.4-36.0 [facility] Satnam piper 250 DO Work Phone: 28.7 pg Normal 27.0-34.0 [facility] [employer] feliz 250 DO Work Phone: 13.2 {gm/dL} Normal 12.0-16.0 [facility] feliz 250 DO Work Phone: 4.6 {E12/L} Normal 4.3-5.9 [facility] feliz 250 DO Work Phone: 6.7 {E9/L} Normal 4.0-11.0 [facility] feliz 250 DO Work Phone: Office Visit (Cardiology)on 05-08-2021 Follow-up visit Diagnoses/Problems Assessed Atherosclerosis of [place] coronary artery of [place] heart without angina pectoris (414.01) (I25.10) Chronic kidney disease, stage 3 (585.3) (N18.30) Deep vein thrombosis (453.40) (I82.409) Essential hypertension (401.9) (I10) High risk medication use (V58.69) (Z79.899) Hyperlipidemia (272.4) (E78.5) Status post coronary angioplasty (V45.82) (Z98.61) Never a smoker Class 1 obesity with body mass index (BMI) of 34.0 to 34.9 in adult (278.00,V85.34) (E66.9,Z68.34) Orders Atherosclerosis of [place] coronary artery of [place] heart without angina pectoris Renew: Aspirin EC 81 MG Oral Tablet Delayed Release; TAKE ONE TABLET THURSDAY AND THURSDAY Renew: Losartan Potassium 50 MG Oral Tablet; TAKE 1 TABLET TWICE DAILY Atherosclerosis of [place] coronary artery of [place] heart without angina pectoris, Chronic kidney disease, stage 3, High risk medication use Basic Metabolic Panel; Status:Active - Retrospective Authorization; Requested for:[id number]; Complete Blood Count; Status:Active - Retrospective Authorization; Requested for:[id number]; Atherosclerosis [place] coronary artery of [place] heart without angina pectoris, Essential hypertension Renew: Metoprolol Succinate ER 50 MG Oral Tablet Extended Release 24 Hour; TAKE 1 TABLET Daily Atherosclerosis of [place] coronary artery of [place] heart without angina pectoris, Hyperlipidemia ALT - [...] to be monitored closely Fariha Guidry MD, [facility] Surgical History Problems History of Angioplasty History of Cholecystectomy History of Colonoscopy History of Hysterectomy Past Medical History Problems History of angina pectoris (V12. (more content not included)... Normal [facility] On Call Tobacco Screening.on 022 Adult depression screening assessment No [facility] [employer] 250 DO Work Phone: Fall risk assessment a) No falls within the last year [facility] [employer] 250 DO Work Phone: Tobacco use status [facility] b) No [facility] feliz 250 DO Work Phone: Vital Signs Date Time Vital Sign Value Performing Clinician Facility 06-09-2023 09:44-0400 Body height 165.1 cm [facility] 06-09-2023 09:44-0400 Body mass index (BMI) [Ratio] 33.3 kg/m2 [facility] 06-09-2023 09:44-0400 Body temperature 96.4 [degF] [facility] 06-09-2023 09:44-0400 Body weight 90.71 kg [facility] 06-09-2023 09:44-0400 Diastolic blood pressure 76 mm[Hg] [facility] 06-09-2023 09:44-0400 Heart rate 69 /min [facility] 06-09-2023 09:44-0400 SaO2% (BldA) [Mass fraction] 97 % [facility] 06-09-2023 09:44-0400 Systolic blood pressure 152 mm[Hg] [facility] 04-10-2023 09:19-0500 Body temperature 98.42 [degF] [facility] 04-10-2023 09:19-0500 Diastolic blood pressure 68 mm[Hg] [facility] 04-10-2023 09:19-0500 Heart rate 82 /min [facility] 04-10-2023 09:19-0500 Respiratory rate 16 /min [facility] 04-10-2023 09:19-0500 SaO2% (BldA) [Mass fraction] 97 % [facility] 04-10-2023 09:19-0500 Systolic blood pressure 168 mm[Hg] [facility] 03-20-2023 09:00-0500 Blood Pressure Location Christopher KAPLE [facility] 03-20-2023 09:00-0500 Body temperature 98.42 [degF] Christopher KAPLE [facility] 03-20-2023 09:00-0500 Diastolic blood pressure 80 mm[Hg] Christopher KAPLE [facility] 03-20-2023 09:00-0500 Heart rate 70 /min Christopher KAPLE [facility] 03-20-2023 09:00-0500 Respiratory rate 16 /min Christopher KAPLE [facility] 03-20-2023 09:00-0500 SaO2% (BldA) [Mass fraction] 99 % Christopher KAPLE [facility] 03-20-2023 09:00-0500 Systolic blood pressure 132 mm[Hg] Christopher WELLS [facility] 03-04-2023 09:09-0500 Heart rate 80 /min Nicola Willie [facility] 03-04-2023 09:09-0500 SaO2% (BldA) [Mass fraction] 99 % Nicola Willie [facility] 03-04-2023 09:09-0500 Diastolic blood pressure 67 mm[Hg] Petersen Willie [facility] 03-04-2023 09:09-0500 Mean blood pressure 91 mm[Hg] Nicola Tapia [facility] 03-04-2023 09:09-0500 Systolic blood pressure 138 mm[Hg] Nicola Tapia [facility] 03-04-2023 09:09-0500 Respiratory rate 16 /min Petersen Willie [facility] 03-04-2023 09:04-0500 Diastolic blood pressure 96 mm[Hg] Nicola Tapia [facility] 03-04-2023 09:04-0500 Heart rate 84 /min Nicola Tapia [facility] 03-04-2023 09:04-0500 SaO2% (BldA) [Mass fraction] 98 % Nicola Tapia [facility] 03-04-2023 09:04-0500 Systolic blood pressure 165 mm[Hg] Nicola Tapia [facility] 03-04-2023 08:12-0500 Heart rate 82 /min Nicola Tapia [facility] 03-04-2023 08:12-0500 SaO2% (BldA) [Mass fraction] 97 % Nicola Tapia [facility] 03-04-2023 08:12-0500 Diastolic blood pressure 75 mm[Hg] Nicola Tapia [facility] 03-04-2023 08:12-0500 Mean blood pressure 103 mm[Hg] Nicola Tapia [facility] 03-04-2023 08:12-0500 Systolic blood pressure 159 mm[Hg] Nicola Tapia [facility] 03-04-2023 08:12-0500 Body temperature 98.42 [degF] Nicola Tapia [facility] 03-04-2023 08:11-0500 Respiratory rate 14 /min Nicola Tapia [facility] 03-03-2023 11:45-0500 Body height 165.1 cm Miguel Membreno Other [employer] Other 03-03-2023 11:45-0500 Body mass index (BMI) [Ratio] 33.28 kg/m2 Miguel Membreno Other [employer] Other 03-03-2023 11:45-0500 Body temperature 97.8 [degF] Miguel Membreno Other [employer] Other 03-03-2023 11:45-0500 Body weight 90.72 kg Mgiuel Membreno Other [employer] Other 03-03-2023 11:45-0500 Diastolic blood pressure 72 mm[Hg] Miguel Membreno Other [employer] Other 03-03-2023 11:45-0500 SaO2% (BldA) [Mass fraction] 96 % Miguel Membreno Other [employer] Other 03-03-2023 11:45-0500 Systolic blood pressure 124 mm[Hg] Miguel Membreno Other [facility] [employer] Other 02-18-2023 13:40-0500 Diastolic blood pressure 70 mm[Hg] DO Christopher Kaple Work Phone: [facility] 02-18-2023 13:40-0500 Heart rate 64 /min DO Christopher Kaple Work Phone: [facility] 02-18-2023 13:40-0500 Respiratory rate 16 /min DO Christopher Kaple Work Phone: [facility] 02-18-2023 13:40-0500 SaO2% (BldA) [Mass fraction] 98 % DO Christopher Kaple Work Phone: [facility] 02-18-2023 13:40-0500 Systolic blood pressure 169 mm[Hg] DO Christopher Kaple Work Phone: [facility] 02-18-2023 12:40-0500 Inhaled oxygen flow rate 1 L/min DO Christopher Kaple Work Phone: [facility] 02-18-2023 09:15-0500 Body height 165.1 cm DO Christopher Kaple Work Phone: [facility] 02-18-2023 09:15-0500 Body weight 97.52 kg DO Christopher Kaple Work Phone: [facility] 02-16-2023 13:23-0500 Heart rate 76 /min Gary Prashant [facility] 02-16-2023 13:23-0500 SaO2% (BldA) [Mass fraction] 96 % Gary Prashant [facility] 02-16-2023 13:22-0500 Diastolic blood pressure 80 mm[Hg] Gary Prashant [facility] 02-16-2023 13:22-0500 Mean blood pressure 105 mm[Hg] Gary Cerda [facility] 02-16-2023 13:22-0500 Systolic blood pressure 155 mm[Hg] Gary Cerda [facility] 02-16-2023 13:22-0500 Body temperature 97.7 [degF] Gary Cerda [facility] 02-16-2023 13:21-0500 Respiratory rate 16 /min Gary Cerda [facility] 02-12-2023 09:03-0500 Body height 165.1 cm Fariha Guidry MD Work Phone: [facility] 02-12-2023 09:03-0500 Body mass index (BMI) [Ratio] 35.78 kg/m2 Fariha Guidry MD Work Phone: [facility] 02-12-2023 09:03-0500 Body weight 97.52 kg Fariha Guidry MD Work Phone: [facility] 02-12-2023 09:03-0500 Diastolic blood pressure 64 mm[Hg] Fariha Guidry MD Work Phone: [facility] 02-12-2023 09:03-0500 Heart rate 64 /min Fariha Guidry MD Work Phone: [facility] 02-12-2023 09:03-0500 Systolic blood pressure 120 mm[Hg] Fariha Guidry MD Work Phone: [facility] 01-26-2023 08:00-0500 Blood Pressure Location Christopher WELLS [facility] 01-26-2023 08:00-0500 Body temperature 98.6 [degF] Christopher WELLS [facility] 01-26-2023 08:00-0500 Diastolic blood pressure 72 mm[Hg] Christopher KAPLE [facility] 01-26-2023 08:00-0500 Heart rate 65 /min Christopher KAPLE [facility] 01-26-2023 08:00-0500 SaO2% (BldA) [Mass fraction] 96 % Christopher KAPLE [facility] 01-26-2023 08:00-0500 Systolic blood pressure 124 mm[Hg] Christopher KAPLE [facility] 01-06-2023 08:13-0400 Diastolic blood pressure 78 mm[Hg] Gary Prashant [facility] 01-06-2023 08:13-0400 Heart rate 69 /min Gary Prashant [facility] 01-06-2023 08:13-0400 Mean blood pressure 107 mm[Hg] Gary Prashant [facility] 01-06-2023 08:13-0400 Respiratory rate 14 /min Gary Prashant [facility] 01-06-2023 08:13-0400 Systolic blood pressure 166 mm[Hg] Gary Prashant [facility] 01-05-2023 09:15-0400 Body height 165.1 cm Miguel Membreno Other [employer] Other 01-05-2023 09:15-0400 Body mass index (BMI) [Ratio] 33.28 kg/m2 Miguel Membreno Other [employer] [facility] [employer] Other 01-05-2023 09:15-0400 Body temperature 96.3 [degF] Miguel Buehrer Other [employer] Other 01-05-2023 09:15-0400 Body weight 90.72 kg Miguel Maierehrer Other [employer] Other 01-05-2023 09:15-0400 Diastolic blood pressure 62 mm[Hg] Miguel Buehrer Other [employer] Other 01-05-2023 09:15-0400 SaO2% (BldA) [Mass fraction] 97 % Miguel Buehrer Other [employer] Other 01-05-2023 09:15-0400 Systolic blood pressure 120 mm[Hg] Miguel Buehrer Other [employer] Other 11-04-2022 12:00-0400 Body height 165.1 cm Miguel Martinezrer Other [employer] Other 11-04-2022 12:00-0400 Body mass index (BMI) [Ratio] 33.28 kg/m2 Miguel Martinezrer Other [employer] Other 11-04-2022 12:00-0400 Body temperature 97.1 [degF] Miguel Martinezrer Other [employer] Other 11-04-2022 12:00-0400 Body weight 90.72 kg Miguel Maierehrer Other [employer] Other 11-04-2022 12:00-0400 Diastolic blood pressure 70 mm[Hg] Miguel Buehrer Other [employer] Other 11-04-2022 12:00-0400 SaO2% (BldA) [Mass fraction] 95 % Miguel Martinezkym Other [employer] Other 11-04-2022 12:00-0400 Systolic blood pressure 140 mm[Hg] Miguel Butchermelissa Other [employer] Other 11-03-2022 10:30-0400 Body height 165.1 cm Renetta Patjulesmelissa Other [employer] Other 11-03-2022 10:30-0400 Body mass index (BMI) [Ratio] 33.28 kg/m2 Renetta Ptamargaret Other [employer] Other 11-03-2022 10:30-0400 Body temperature 97.6 [degF] Renetta Patmargaret Other [employer] Other 11-03-2022 10:30-0400 Body weight 90.72 kg Renetta Barahona Other [employer] Other 11-03-2022 10:30-0400 Diastolic blood pressure 76 mm[Hg] Renetta Brooklyn Other [employer] Other 11-03-2022 10:30-0400 SaO2% (BldA) [Mass fraction] 98 % Renetta Patmargaret Other [employer] Other 11-03-2022 10:30-0400 Systolic blood pressure 116 mm[Hg] Renetta Patmargaret Other [employer] Other 09-10-2022 08:12-0400 Blood Pressure Location Linda Solorio [facility] 09-10-2022 08:12-0400 Body temperature 96.8 [degF] Linda Osmin [facility] 09-10-2022 08:12-0400 Diastolic blood pressure 71 mm[Hg] Linda Osmin [facility] 09-10-2022 08:12-0400 Heart rate 56 /min Linda Osmin [facility] 09-10-2022 08:12-0400 Systolic blood pressure 118 mm[Hg] Linda Osmin [facility] 06-11-2022 09:10-0400 Diastolic blood pressure 70 mm[Hg] Linda Osmin [facility] 06-11-2022 09:10-0400 Mean blood pressure 92 mm[Hg] Linda Osmin [facility] 06-11-2022 09:10-0400 Systolic blood pressure 136 mm[Hg] Linda Osmin [facility] 06-11-2022 09:04-0400 Blood Pressure Location Linda Osmin [facility] 06-11-2022 09:04-0400 Body temperature 97.88 [degF] Linda Osmin [facility] 06-11-2022 09:04-0400 Diastolic blood pressure 75 mm[Hg] Linda Osmin [facility] 06-11-2022 09:04-0400 Heart rate 66 /min Linda Osmin [facility] 03-29-2023 09:04-0400 Systolic blood pressure 155 mm[Hg] Linda Solorio [facility] 05-05-2022 09:45-0500 Body height 165.1 cm Miguel Membreno Other [employer] Other 05-05-2022 09:45-0500 Body mass index (BMI) [Ratio] 33.28 kg/m2 Miguel Membreno Other [employer] Other 05-05-2022 09:45-0500 Body temperature 96.2 [degF] Miguel Membreno Other [employer] Other 05-05-2022 09:45-0500 Body weight 90.72 kg Miguel Membreno Other [employer] Other 05-05-2022 09:45-0500 Diastolic blood pressure 60 mm[Hg] Miguel Membreno Other [employer] Other 05-05-2022 09:45-0500 SaO2% (BldA) [Mass fraction] 97 % Miguel Membreno Other [employer] Other 05-05-2022 09:45-0500 Systolic blood pressure 112 mm[Hg] Miguel Membreno Other [employer] Other 04-07-2022 20:00-0500 Diastolic blood pressure 80 mm[Hg] DO Christopher Kaple Work Phone: [facility] 04-07-2022 20:00-0500 Heart rate 70 /min DO Christopher Kaple Work Phone: [facility] 04-07-2022 20:00-0500 Respiratory rate 18 /min DO Christopher Kaple Work Phone: [facility] 04-07-2022 20:00-0500 SaO2% (BldA) [Mass fraction] 98 % DO Christopher Kaple Work Phone: [facility] 04-07-2022 20:00-0500 Systolic blood pressure 159 mm[Hg] DO Christopher Kaple Work Phone: [facility] 04-07-2022 17:05-0500 Body temperature 98.1 [degF] DO Christopher Kaple Work Phone: [facility] 04-07-2022 16:20-0500 Inhaled oxygen flow rate 2 L/min DO Christopher Kaple Work Phone: [facility] 04-07-2022 13:53-0500 Body height 165.1 cm DO Christopher Kaple Work Phone: [facility] 04-07-2022 13:53-0500 Body weight 90.71 kg DO Christopher Kaple Work Phone: [facility] 03-31-2022 10:15-0500 Body height 165.1 cm Renetta Barahona Other [employer] Other 03-31-2022 10:15-0500 Body mass index (BMI) [Ratio] 33.28 kg/m2 Renetta Barahona Other [employer] Other 03-31-2022 10:15-0500 Body temperature 98.7 [degF] Renetta Barahona Other [employer] Other 03-31-2022 10:15-0500 Body weight 90.72 kg Renetta Barahona Other [employer] Other 03-31-2022 10:15-0500 Diastolic blood pressure 82 mm[Hg] Renetta Barahona Other [employer] Other 03-31-2022 10:15-0500 SaO2% (BldA) [Mass fraction] 98 % Renetta Barahona Other [employer] Other 03-31-2022 10:15-0500 Systolic blood pressure 136 mm[Hg] Renetta Barahona Other [employer] Other 01-27-2022 12:00-0500 Body height 165.1 cm Miguel Martinezremelissa Other [employer] Other 01-27-2022 12:00-0500 Body mass index (BMI) [Ratio] 33.28 kg/m2 Miguel Martinezrer Other [employer] Other 01-27-2022 12:00-0500 Body temperature 97.7 [degF] Miguel Maierehrer Other [employer] Other 01-27-2022 12:00-0500 Body weight 90.72 kg Miguel Martinezrer Other [employer] Other 01-27-2022 12:00-0500 Diastolic blood pressure 70 mm[Hg] Miguel Maierehrer Other [employer] Other 01-27-2022 12:00-0500 SaO2% (BldA) [Mass fraction] 98 % Miguel Martinezrer Other [employer] Other 01-27-2022 12:00-0500 Systolic blood pressure 142 mm[Hg] Miguel Buehrer Other [employer] Other 01-15-2022 10:29-0400 Body height 165.1 cm Christopher Wells Work Phone: [facility] [employer] [address] DO Work Phone: 01-15-2022 10:29-0400 Body mass index (BMI) [Ratio] 34.95 kg/m2 Christopher Bale Work Phone: [facility] [employer] [address] DO Work Phone: 01-15-2022 10:29-0400 Body surface area Derived from formula 2.02 m2 Christopher Wells Work Phone: [facility] [employer] [address] DO Work Phone: 01-15-2022 10:29-0400 Body weight 95.26 kg Christopher Bale Work Phone: [facility] [employer] [address] DO Work Phone: 01-15-2022 10:29-0400 Diastolic blood pressure 60 mm[Hg] Christopher Wells Work Phone: [facility] [employer] [address] DO Work Phone: 01-15-2022 10:29-0400 Heart rate 68 /min Christopher Wells Work Phone: [facility] [employer] DO Work Phone: 01-15-2022 10:29-0400 Systolic blood pressure 116 mm[Hg] Christopher Wells Work Phone: [facility] [address] DO Work Phone: 11-28-2021 15:19-0400 Blood Pressure Location Charis Daniel [facility] 11-28-2021 15:19-0400 Diastolic blood pressure 69 mm[Hg] Charis Daniel [facility] 11-28-2021 15:19-0400 Heart rate 61 /min Charis Daniel [facility] 11-28-2021 15:19-0400 Respiratory rate 18 /min Charis Fredy [facility] 11-28-2021 15:19-0400 SaO2% (BldA) [Mass fraction] 98 % Charis Larsonan [facility] 11-28-2021 15:19-0400 Systolic blood pressure 132 mm[Hg] Charis Daniel [facility] 10-28-2021 09:56-0400 Blood Pressure Location Charis Daniel [facility] 10-28-2021 09:56-0400 Diastolic blood pressure 72 mm[Hg] Charis Daniel [facility] 10-28-2021 09:56-0400 Heart rate 76 /min Charis Daniel [facility] 10-28-2021 09:56-0400 SaO2% (BldA) [Mass fraction] 96 % Charis Larsonan [facility] 10-28-2021 09:56-0400 Systolic blood pressure 120 mm[Hg] Charis Daniel [facility] 05-28-2021 12:25-0400 Diastolic blood pressure 64 mm[Hg] [facility] Work Phone: 05-28-2021 12:25-0400 Systolic blood pressure 130 mm[Hg] Christopher [facility] Work Phone: 05-28-2021 12:21-0400 Body height 165.1 cm [facility] Work Phone: 05-28-2021 12:21-0400 Body mass index (BMI) [Ratio] 33.98 kg/m2 Christopher Wells Work Phone: [facility] DO Work Phone: 05-28-2021 12:21-0400 Body surface area Derived from formula 2 m2 Christopher Wells [facility] Work Phone: 05-28-2021 12:21-0400 Body weight 92.63 kg Christopher Wells [facility] Work Phone: 05-28-2021 12:21-0400 Diastolic blood pressure 76 mm[Hg] [facility] Work Phone: 05-28-2021 12:21-0400 Heart rate 68 /min Christopher Wells [facility] Work Phone: 05-28-2021 12:21-0400 Systolic blood pressure 140 mm[Hg] [facility] Work Phone: 05-08-2021 11:36-0500 Diastolic blood pressure 90 mm[Hg] Christopher Wells Work Phone: [facility] [employer] [address] DO Work Phone: 05-08-2021 11:36-0500 Systolic blood pressure 180 mm[Hg] Christopher Wells Work Phone: [facility] [employer] [address] DO Work Phone: 05-08-2021 11:20-0500 Body height 165.1 cm Christopher Wells Work Phone: [facility] [address] DO Work Phone: 05-08-2021 11:20-0500 Body mass index (BMI) [Ratio] 34.11 kg/m2 Christopher Wells Work Phone: [facility] [address] DO Work Phone: 05-08-2021 11:20-0500 Body surface area Derived from formula 2 m2 Christopher Wells Work Phone: [facility] [facility] DO Work Phone: 05-08-2021 11:20-0500 Body weight 92.99 kg Christopher Wells Work Phone: [facility] [address] DO Work Phone: 05-08-2021 11:20-0500 Diastolic blood pressure 90 mm[Hg] Christopher Wells Work Phone: [facility] [address] DO Work Phone: 05-08-2021 11:20-0500 Heart rate 68 /min Christopher Wells Work Phone: [facility] [address] DO Work Phone: 05-08-2021 11:20-0500 Systolic blood pressure 142 mm[Hg] Christopher Wells Work Phone: [facility] [facility] DO Work Phone: Encounters Encounter Date Encounter Type Care Provider Facility Start: 06-09-2023 End: 06-09-2023 ambulatory [facility] Work Phone: Start: 06-09-2023 End: 06-09-2023 Patient encounter procedure [facility] Work Phone: Start: 05-11-2023 End: 05-12-2023 ambulatory Christopher WELLS Facility[place] Start: 04-10-2023 End: 04-10-2023 Emergency department patient visit Malvin Gupta Facility:[facility] Start: 04-10-2023 End: 04-10-2023 Emergency department patient visit [facility] Chris Gupta [facility] Start: 03-23-2023 End: 03-24-2023 ambulatory Mara Pastor Facility:[facility] Start: 03-20-2023 End: 03-21-2023 ambulatory Christopher WELLS Facility:[facility] Start: 03-20-2023 End: 03-20-2023 Patient encounter procedure Christopher WELLS [facility] Start: 03-18-2023 End: 03-18-2023 ambulatory DENTON D DOLCE Not Available Start: 03-04-2023 End: 03-05-2023 ambulatory Nicola Tapia Facility:[facility] Start: 03-04-2023 End: 03-04-2023 Pain Management Nicola Tapia [facility] Start: 03-03-2023 End: 03-03-2023 Patient encounter procedure Denton Mares [facility] Start: 03-03-2023 End: 03-04-2023 ambulatory Denton D Dolce [place] [employer] Other Start: 03-03-2023 Office outpatient vi sit 25 minutes Miguel Membreno [facility] Vascular Surgery Start: 03-02-2023 End: 03-03-2023 ambulatory Linda Solorio Facility:[facility] Start: 03-02-2023 End: 03-02-2023 Patient encounter procedure Linda Solorio [facility] Start: 02-24-2023 End: 02-25-2023 ambulatory Denton D Dolce Facility:[facility] Start: 02-20-2023 End: 02-20-2023 ambulatory DENTON D DOLCE Not Available Start: 02-19-2023 End: 04-10-2023 ambulatory Christopher WELLS Facility:[id number] Start: 02-18-2023 End: 02-18-2023 ambulatory Miguel Darrionsatnammelissa Facility:[facility] Start: 02-18-2023 End: 02-18-2023 Admission to same day surgery center DO Christopher Wells Work Phone: [facility] Work Phone: Start: 02-18-2023 End: 02-18-2023 ambulatory DO Christopher Wells Work Phone: [facility] Work Phone: Start: 02-16-2023 End: 02-17-2023 ambulatory MD Gary Cerda Facility:[facility] Start: 02-16-2023 End: 02-16-2023 Pain Management Gary Cerda [facility] Start: 02-16-2023 End: 02-17-2023 ambulatory Denton Mares Facility:[facility] Start: 02-16-2023 End: 02-16-2023 Patient encounter procedure Denton Mares [facility] Start: 02-12-2023 End: 02-12-2023 ambulatory FRIED M [facility] Ambulatory Start: 02-12-2023 End: 02-12-2023 Office outpatient visit 25 minutes Fariha Guidry MD Work Phone: [facility] Comment on above: Atherosclerosis of n ative coronary artery of [place] heart without angina pectoris; Status post coronary angioplasty; Essential hypertension; Hyperlipidemia, unspecified hyperlipidemia type; PVD (peripheral vascular disease) ([facility]); Stage 3 chronic kidney disease, unspecified whether stage 3a or 3b CKD ([facility]); Sleep apnea, unspecified type Start: 02-10-2023 End: 02-11-2023 ambulatory Denton Mares Facility:[facility] Start: 02-10-2023 End: 02-10-2023 Patient encounter procedure Denton Mares [facility] Start: 01-27-2023 End: 01-28-2023 ambulatory Denton Gomez Suzan [employer] Other Start: 01-27-2023 Telephone encounter Miguel Membreno [facility] Vascular Surgery Start: 01-27-2023 End: 01-27-2023 Patient encounter procedure Denton Mares [facility] Start: 01-26-2023 End: 01-27-2023 ambulatory Christopher WELLS Facility:[facility] Start: 01-26-2023 End: 01-26-2023 Patient encounter procedure Christopher WELLS [facility] Start: 01-26-2023 End: 01-26-2023 Well adult monitoring check done Christopher WELLS [facility] Start: 01-19-2023 End: 01-20-2023 ambulatory Denton Mares Facility:[facility] Start: 01-19-2023 End: 01-19-2023 Patient encounter procedure Denton Mares [facility] Start: 01-13-2023 End: 01-14-2023 ambulatory Denton Augreg Facility:[facility] Start: 01-13-2023 End: 01-13-2023 Patient encounter procedure Denton Jason Mares [facility] Start: 01-06-2023 End: 01-07-2023 ambulatory MD Gary Cerda Facility:[facility] Start: 01-06-2023 End: 01-06-2023 Pain Management Gary Cerda [facility] Start: 01-05-2023 End: 01-05-2023 ambulatory Miguel Membreno Other [employer] Other Start: 01-05-2023 Office outpatient vi sit 25 minutes Miguel Membreno [facility] Vascular Surgery Start: 12-31-2022 End: 01-01-2023 ambulatory Catrachito Wolf Facility:[facility] Start: 12-31-2022 End: 12-31-2022 Patient encounter procedure Catrachito Wolf [facility] Start: 12-22-2022 End: 12-23-2022 ambulatory Denton Mares Facility:[facility] Start: 12-18-2022 End: 12-19-2022 ambulatory Christopher A RSUSELL Facility:[facility] Start: 12-08-2022 End: 12-09-2022 ambulatory Catrachito Wolf Facility:[facility] Start: 12-08-2022 End: 12-08-2022 Patient encounter procedure Catrachito Wolf [facility] Start: 11-24-2022 End: 11-25-2022 ambulatory Christopher A RUSSELL Facility:[facility] Start: 11-24-2022 End: 11-24-2022 Patient encounter procedure Christopher A KAPLE [facility] Start: 11-06-2022 End: 11-07-2022 ambulatory Christopher A KAPJANNA Facility:[facility] Start: 11-04-2022 Office outpatient vi sit 25 minutes Miugel Membreno [facility] Vascular Surgery Start: 11-04-2022 End: 11-04-2022 ambulatory DO Christopher A Kaple Work Phone: [employer] Other Start: 11-04-2022 End: 11-04-2022 Patient encounter procedure DO Christopher Kaple Work Phone: [facility] Vascular Start: 11-03-2022 Follow-up encounter Renetta Musa Vascular Surgery Start: 11-03-2022 End: 11-03-2022 [facility] [employer] [facility] Start: 11-03-2022 End: 11-03-2022 Patient encounter procedure DO Christopher Wells Work Phone: [facility]-Ultrasound [facility] Start: 10-31-2022 End: 11-01-2022 ambulatory Klaus Akkina Facility:[facility] Start: 10-31-2022 End: 10-31-2022 Patient encounter procedure Klaus Akkina [facility] Start: 09-18-2022 Chart Update Christopher Wells Work Phone: [facility] [address] DO Work Phone: Start: 09-17-[address] Christopher Moulotn [id number] Start: 09-10-2022 End: 09-11-2022 ambulatory Linda Solorio Facility:[facility] Start: 09-10-2022 End: 09-10-2022 Patient encounter procedure Linda Solorio [facility] Start: 08-01-2022 End: 08-02-2022 ambulatory Fariha Cumminsahim Facility:[facility] Start: 07-23-2022 Rx Renewal Christopher Wells Work Phone: [facility] DO Work Phone: Start: 06-13-2022 Rx Renewal Christopher Wells Work Phone: [facility] DO Work Phone: Start: 06-11-2022 End: 06-11-2022 Patient encounter procedure Linda Solorio [facility] Start: 05-08-2022 End: 05-08-2022 Lab Drop off Linda Solorio [facility] Start: 05-05-2022 End: 05-05-2022 ambulatory Miguel Membreno Other [employer] [employer] Other Start: 05-05-2022 Office outpatient vi sit 25 minutes Miguel Membreno [facility] Vascular Surgery Start: 04-08-2022 End: 04-08-2022 ambulatory Renetta Patjulesmelissa Other [place] [employer] Other Start: 04-08-2022 Telephone encounter Renetta [facility] Start: 04-07-2022 End: 04-07-2022 ambulatory Miguelerrol Martinezbettymelissa Facility:[facility] Start: 04-07-2022 End: 04-07-2022 Admission to same day surgery center DO Christopher Wells Work Phone: [facility]-Interventional Radiology Work Phone: Start: 04-07-2022 End: 04-07-2022 ambulatory DO Christopher A Kaple Work Phone: [facility] Work Phone: Start: 03-31-2022 Follow-up encounter Renetta [place] [facility] Start: 03-31-2022 End: 03-31-2022 ambulatory Miguel Michellekym Facility:[facility] Start: 03-31-2022 End: 03-31-2022 ambulatory DO Christopher A Kaple Work Phone: [facility] Work Phone: Start: 03-31-2022 End: 03-31-2022 Patient encounter procedure DO Christopher Kaple Work Phone: [facility]Ul[facility] Start: 03-31-2022 End: 03-31-2022 Patient encounter procedure Klaus Núñez [facility] Start: 02-12-2022 End: 02-12-2022 Patient encounter procedure Christopher WELLS [facility] Start: 01-27-2022 End: 01-27-2022 ambulatory Miguel Membreno Other [facility] [employer] Other Start: 01-27-2022 Office outpatient ne w 45 minutes Miguel Membreno [facility] Vascular Surgery Start: 01-15-[address] Fariha Guidry Facility: Start: 01-15-2022 Office outpatient vi sit 25 minutes Christopher Wells Work Phone: [facility] 600 DO Work Phone: Start: 12-31-2021 End: 06-01-2022 Recurring Charis Daniel [facility] Start: 11-28-2021 End: 11-28-2021 Patient encounter procedure Charis Daniel [facility] Start: 11-12-2021 Rx Renewal [facility] Work Phone: Start: 10-28-2021 Rx Renewal Christopher [facility] Work Phone: Start: 10-28-2021 End: 10-28-2021 Patient encounter procedure Charis Daniel [facility] Start: 10-01-2021 End: 10-01-2021 Patient encounter procedure Christopher WELLS [facility] Start: 09-24-2021 End: 09-24-2021 Patient encounter procedure Christopher Moni WELLS [facility] Start: 08-08-2021 End: 08-08-2021 Patient encounter procedure Christopher Moni MEJIAJANNA [facility] Start: 07-30-2021 Rx Renewal Christopher Moni Mejiajanna Work Phone: [facility] 250 DO Work Phone: Start: 06-12-2021 End: 01-13-2022 Recurring Christopher oMni RUSSLEL [facility] Start: 05-28-2021 Office outpatient vi sit 10 minutes Christopher Wells Work Phone: [facility] 600 DO Work Phone: Start: 05-28-2021 ambulatory Christopher Moni Russell Facility: Start: 05-12-2021 Chart Update Christopher Moni Wells Work Phone: [facility] 250 DO Work Phone: Start: 05-08-2021 ambulatory [...] 05-21-2032 Screening for malignant neoplasm of colon [facility] Start: 05-09-2025 DTaP/Tdap/Td Vaccines (2 - Td or Tdap) DTaP/Tdap/Td Vaccines (2 - Td or Tdap) [facility] Start: 02-01-2024 ambulatory Ambulatory Facility:[facility] Start: 07-28-2023 ambulatory Ambulatory Facility:[facility] Start: 02-18-2023 US Lower extremity veins - bilateral [facility] Start: 02-18-2023 US scan venography of lower limbs US venous mapping BI lower [facility] Start: 02-18-2023 [facility] Start: 02-12-2023 End: 02-13-2024 Alanine aminotransferase [Enzymatic activity/volume] in Serum or Plasma by With P-5'-P Alanine Aminotransferase Lab Routine Atherosclerosis of [place] coronary artery of [place] heart without angina pectoris Hyperlipidemia, unspecified hyperlipidemia type Expected: 02/12/2023 (Approximate), Expires: 02/13/2024 [facility] Service Area Work Phone: Comment on above: Expected: 02/12/2023 (Approximate), Expi res: 02/13/2024 Start: 02-12-2023 End: 02-13-2024 Aspartate aminotransferase [Enzymatic activity/volume] in Serum or Plasma by With P-5'-P Aspartate Aminotransferase Lab Routine Atherosclerosis of [place] coronary artery of [place] heart without angina pectoris Hyperlipidemia, unspecified hyperlipidemia type Expected: 02/12/2023 (Approximate), Expires: 02/13/2024 [facility] Work Phone: Comment on above: Expected: 02/12/2023 (Approximate), Expi res: 02/13/2024 Start: 02-12-2023 End: 02-13-2024 Lipid 1996 panel - Serum or Plasma Lipid Panel Lab Routine Atherosclerosis of [place] coronary artery of [place] heart without angina pectoris Hyperlipidemia, unspecified hyperlipidemia type Expected: 02/12/2023 (Approximate), Expires: 02/13/2024 [facility] Work Phone: Comment on above: Expected: 02/12/2023 (Approximate), Expi res: 02/13/2024 Start: 02-12-2023 FUV, Provider: Fariha Guidry, Status: Pen, Time: 9:00 AM FUV, Provider: Fariha Guidry, Status: Pen, Time: 9:00 AM [facility] 250 DO Work Phone: Start: 11-14-2022 Influenza vaccination Influenza Vaccine (#1) [facility] Start: 07-30-2022 FUV, Provider: Fariha Guidry, Status: Pen, Time: 8:40 AM FUV, Provider: Fariha Guidry, Status: Pen, Time: 8:40 AM [facility] Work Phone: Start: 04-07-2022 [facility] Start: 02-12-2022 COVID-19 Vaccine (4 - Booster for Luca series) COVID-19 Vaccine (4 - Booster for Luca series) [facility] Start: 01-15-2022 FUV, Provider: Fariha Guidry, Status: Pen, Time: 10:10 AM FUV, Provider: Fariha Guidry, Status: Pen, Time: 10:10 AM [facility] Work Phone: Start: 05-28-2021 NURSEVST, Provider: CITLALLI RASHID EVENT COORDINATOR 1,[id number], Status: Pen, Time: 11:45 AM NURSEVST, Provider: CITLALLI RASHID EVENT COORDINATOR 1,[id number], Status: Pen, Time: 11:45 AM [facility] 250 DO Work Phone: Start: 1989 Screening for malignant neoplasm of breast Mammogram [facility] Start: 06-25-1967 Diabetes mellitus screening Diabetes Screening [facility] Start: 06-25-1967 Hepatitis C screening Hepatitis C Screening [facility] Start: 1949 Lipid panel Lipid Panel [facility] Start: 1949 Medicare Annual Wellness Visit Medicare Annual Wellness Visit (AWV) [facility] Start: 1949 Screening for malignant neoplasm of colon [facility] Start: 1949 Screening for osteoporosis Bone Density Scan [facility] Ankle brachial press ure index [facility] Patient Education [facility] Work Phone: Patient referral [facility] Work Phone: Immunizations Immunization Date Immunization Notes Care Provider Fa cility 12-18-2021 Fluad Quadrivalent 0 .5 ML Intramuscular Prefilled Syringe Christopher Wells Work Phone: [facility] 600 DO Work Phone: 12-18-2021 influenza virus vaccine, unspecified formulation Christopher WELLS [facility] 12-18-2021 Pfizer COVID-19 Vac Bivalent 30 MCG/0.3ML Intramuscular Suspension Christopher Wells Work Phone: [facility] 600 DO Work Phone: 12-18-2021 SARS-CoV-2 (COVID-19 ) mRNA BNT-162b2 vax Christopher WELLS [facility] 03-26-2021 Fluzone High-Dose Quadrivalent 0.7 ML Intramuscular Suspension Prefilled Syringe Christopher Wells [facility] Work Phone: 03-26-2021 influenza virus vaccine, unspecified formulation Christopher WELLS [facility] 03-26-2021 Pfizer-BioNTech COVID-19 Vacc 30 MCG/0.3ML Intramuscular Suspension Christopher Wells Work Phone: [place] [address] DO Work Phone: 05-19-2020 Luca COVID-19 Vaccine 0.5 ML Intramuscular Suspension Christopher Wells Work Phone: [place] [address] DO Work Phone: 05-18-2020 COVID-19 vaccine, vector-nr, [id number], PF, 0.5 mL; Translations: [Luca COVID-19 Vaccine] Christopher WELLS [facility] Comment on above: Reason for Medicatio n: Prophylaxis Reason for Medicatio n: Prophylaxis 02-23-2020 zoster vaccine recombinant Christopher Wells Work Phone: [facility] 250 DO Work Phone: 01-05-2020 Fluad Quadrivalent 0 .5 ML Intramuscular Prefilled Syringe Christopher Wells Work Phone: [facility] 250 DO Work Phone: 01-05-2020 influenza virus vaccine, unspecified formulation Christopher WELLS [facility] 12-28-2019 influenza, high dose seasonal, preservative-free Christopher Wells Work Phone: [place] [address] DO Work Phone: 12-15-2019 influenza virus vaccine, unspecified formulation Christopher WELLS [facility] 11-15-2019 zoster vaccine recombinant Christopher Wells Work Phone: [place] [address] DO Work Phone: 11-15-2019 zoster vaccine, live Christopher MARTI [facility] 12-20-2018 influenza, high dose seasonal, preservative-free Christopher WELLS [facility] 12-14-2018 influenza virus vaccine, unspecified formulation Christopher RUSSELL [facility] 12-14-2018 influenza, high dose seasonal, preservative-free Christopher Wells Work Phone: [place] [address] DO Work Phone: 12-14-2018 pneumococcal polysaccharide vaccine, 23 valent Christopher Wells Work Phone: [place] [address] DO Work Phone: 02-16-2018 influenza virus vaccine, unspecified formulation Christopher WELLS [facility] 02-16-2018 Influenza, injectabl e, Madin [place] Canine Kidney, preservative free, quadrivalent Christopher Wells Work Phone: [place] [address] DO Work Phone: 02-16-2018 pneumococcal conjuga te vaccine, 13 valent Christopher Wells Work Phone: [place] [address] DO Work Phone: 11-14-2017 influenza virus vaccine, unspecified formulation Christopher Wells Work Phone: [place] [address] DO Work Phone: 11-27-2016 influenza virus vaccine, unspecified formulation Christopher WELLS [facility] 11-27-2016 influenza, high dose seasonal, preservative-free Christopher Moni Wells Work Phone: [place] [address] DO Work Phone: 01-21-2016 influenza virus vaccine, unspecified formulation Christopher RUSSELL [facility] 01-21-2016 influenza, high dose seasonal, preservative-free Christopher Wells Work Phone: [place] [address] DO Work Phone: 05-09-2015 tetanus toxoid, redu louise diphtheria toxoid, and acellular pertussis vaccine, adsorbed Christopher Wells Work Phone: [place] [address] DO Work Phone: 02-26-2009 novel [id number], preservative-free, injectable Christopher Wells Work Phone: [place] [address] DO Work Phone: NEGATED: Highlighted row has not occurred!02-27-2023 influenza virus vaccine, unspecified formulation Linda Solorio [facility] NEGATED: Highlighted row has not occurred!12-18-2022 influenza virus vaccine, unspecified formulation Catrachito Matador [facility] Payers Date Payer Category Payer Self-pay [id number] 2022 Unknown [id number] 2018 Unknown 2018 Unknown [id number] 2014 Medicare [id number] 2014 Medicare MEDICARE MEDICAR E PART A AND B [id number] 2014-Present [address] [place] [address] [id number]. [id number] 1949 Unknown [id number] 2.16.840.1.837790.3.579.2.356 1949 Unknown [id number] 2.16.840.1.204864.3.579.2.356 1949 Unknown [id number] 2.16.840.1.005001.3.579.2.356 1949 Unknown [id number] 2.16.840.1.046506.3.579.2.1068 1949 Unknown [id number] 2.16.840.1.210660.3.579.2.1244 1949 Unknown [id number] 2.16.840.1.027592.3.579.2.1259 1949 Unknown [id number] 2.16.840.1.896670.3.579.2.1259 1949 Unknown [id number] 2.16.840.1.541096.3.579.2.727 1949 Unknown [id number] 2.16.840.1.526530.3.579.2.727 1949 Unknown [id number] 2.16.840.1.128416.3.579.2.727 1949 Unknown [id number] 2.16.840.1.893538.3.579.2 1949 Unknown [id number] 2.16.840.1.522867.3.579.2 1949 Unknown [id number] 2.16.840.1.961018.3.579.2 1949 Unknown [id number] 2.16.840.1.146829.3.579.2 1949 Unknown [id number] 2.16.840.1.739991.3.579.2 1949 Unknown [id number] 2.16.840.1.464614.3.579. 1949 Unknown [id number] 2.16.840.1.494026.3.579. 1949 Unknown [id number] 2.16.840.1.904183.3.579. 1949 Unknown [id number] 2.16.840.1.246680.3.579.2 1949 Unknown [id number] 2.16.840.1.153677.3.579.2 1949 Unknown [id number] 2.16.840.1.599353.3.579.2 1949 Unknown [id number] 2.16.840.1.848565.3.579.2 1949 Unknown [id number] 2.16.840.1.006915.3.579.2 1949 Unknown [id number] 2.16.840.1.348518.3.579.2 1949 Unknown [id number] 2.16.840.1.436946.3.579.2 1949 Unknown [id number] 2.16.840.1.505024.3.579.2 1949 Unknown [id number] 2.16.840.1.745627.3.579.2.727 1949 Unknown [id number] 2.16.840.1.222198.3.579.2.727 1949 Unknown [id number] 2.16.840.1.235730.3.579.2.727 1949 Unknown [id number] 2.16.840.1.094181.3.579.2.727 1949 Unknown [id number] 2.16.840.1.707233.3.579.2.727 1949 Unknown [id number] 2.16.840.1.834749.3.579.2.727 1949 Unknown [id number] 2.16.840.1.332795.3.579.2.727 1949 Unknown [id number] 2.16.840.1.490436.3.579.2.727 1949 Unknown [id number] 2.16.840.1.166084.3.579.2.727 Unknown [id number] 2.16.840.1.746176.3.579.2.531 Unknown [id number] 2.16.840.1.706121.3.579.2.531 Unknown [id number] 2.16.840.1.323655.3.579.2.531 Unknown [id number] 2.16.840.1.943135.3.579.2.531 Unknown [id number] 2.16.840.1.678994.3.579.2.531 Social History Date Type Detail Facility Start: 02-12-2023 Never a smoker Never a smoker -[facility] 250 DO Work Phone: Start: 12-10-2020 End: 03-03-2023 Tobacco smoking status Never smoked tobacco (finding) [facility] Comment on above: denies use Tobacco smoking status Never [facility] Comment on above: denies use Start: 02-12-2023 Sex Assigned At Female F [facility] Start: 1950 Sex Assigned At Female F [facility] Start: 02-12-2023 Tobacco use and exposure Smokeless tobacco non-user [facility] Work Phone: Start: 02-12-2023 Alcohol intake Current drinke r of alcohol (finding) [facility] Work Phone: Start: 02-12-2023 Alcohol Comment social [facility] Work Phone: Start: 1950 Sex Assigned At Not on file [facility] Work Phone: Start: 02-02-2023 End: 02-12-2023 Exposure to SARS-CoV-2 (event) Not sure [facility] Medical Equipment Procedure Code Equipment Code Equipment [...] 11, Dx: E11.9 Directions: BID, [id number], Supply, 165, cm, 06/11/22 9:10:00 EDT, Height/Length Dosing, 97.6, kg, 06/11/22 9:10:00 EDT, Weight Dosing Start: 06-13-2022 Lancets, See Instructions, 100 EA, 11, Dx: E11.9 Directions: BID, [facility], Supply, 166, cm, 05/10/21 8:27:00 EST, Height/Length Dosing, 92.8, kg, 05/10/21 8:27:00 EST, Weight Dosing Start: 05-10-2021 Test strips, See Instructions, 100 EA, 11, Dx: E11.9 Directions: BID, [facility] #[id number], Supply, 165, cm, 06/11/22 9:10:00 EDT, Height/Length Dosing, 97.6, kg, 06/11/22 9:10:00 EDT, Weight Dosing Start: 06-13-2022 CL CLOSURE DEVIC E EXOSEAL 6F FDA Start: 08-11-2018 CL STENT JIE 2.5 X 08 FDA Start: 08-11-2018 Multiple periphe ral artery stent, bare-metal ()[id number] FDA Start: 04-07-2022 Lancets, See Instructions, 100 EA, 11, Dx: E11.9 Directions: BID, [facility], Supply, 166, cm, 05/10/21 8:27:00 EST, Height/Length Dosing, 92.8, kg, 05/10/21 8:27:00 EST, Weight Dosing Start: 05-10-2021 Test strips, See Instructions, 100 EA, 11, Dx: E11.9 Directions: BID, [facility] #[id number], Supply, 165, cm, 06/11/22 9:10:00 EDT, Height/Length Dosing, 97.6, kg, 06/11/22 9:10:00 EDT, Weight Dosing Start: 06-13-2022 Lancets, See Instructions, 100 EA, 11, Dx: E11.9 Directions: BID, [facility], Supply, 166, cm, 05/10/21 8:27:00 EST, Height/Length Dosing, 92.8, kg, 05/10/21 8:27:00 EST, Weight Dosing Start: 05-10-2021 Test strips, See Instructions, 100 EA, 11, Dx: E11.9 Directions: BID, [facility] #[id number], Supply, 165, cm, 06/11/22 9:10:00 EDT, Height/Length Dosing, 97.6, kg, 06/11/22 9:10:00 EDT, Weight Dosing Start: 06-13-2022 Lancets, See Instructions, 100 EA, 11, Dx: E11.9 Directions: BID, [facility], Supply, 166, cm, 05/10/21 8:27:00 EST, Height/Length Dosing, 92.8, kg, 05/10/21 8:27:00 EST, Weight Dosing Start: 05-10-2021 Test strips, See Instructions, 100 EA, 11, Dx: E11.9 Directions: BID, [facility] #[id number], Supply, 165, cm, 06/11/22 9:10:00 EDT, Height/Length Dosing, 97.6, kg, 06/11/22 9:10:00 EDT, Weight Dosing Start: 06-13-2022 Lancets, See Instructions, 100 EA, 11, Dx: E11.9 Directions: BID, [facility], Supply, 166, cm, 05/10/21 8:27:00 EST, Height/Length Dosing, 92.8, kg, 05/10/21 8:27:00 EST, Weight Dosing Start: 05-10-2021 Test strips, See Instructions, 100 EA, 11, Dx: E11.9 Directions: BID, [facility] #[id number], Supply, 165, cm, 06/11/22 9:10:00 EDT, Height/Length Dosing, 97.6, kg, 06/11/22 9:10:00 EDT, Weight Dosing Start: 06-13-2022 Lancets, See Instructions, 100 EA, 11, Dx: E11.9 Directions: BID, [facility], Supply, 166, cm, 05/10/21 8:27:00 EST, Height/Length Dosing, 92.8, kg, 05/10/21 8:27:00 EST, Weight Dosing Start: 05-10-2021 Test strips, See Instructions, 100 EA, 11, Dx: E11.9 Directions: BID, [facility] #[id number], Supply, 165, cm, 06/11/22 9:10:00 EDT, Height/Length Dosing, 97.6, kg, 06/11/22 9:10:00 EDT, Weight Dosing Start: 06-13-2022 Lancets, See Instructions, 100 EA, 11, Dx: E11.9 Directions: BID, [facility], Supply, 166, cm, 05/10/21 8:27:00 EST, Height/Length Dosing, 92.8, kg, 05/10/21 8:27:00 EST, Weight Dosing Start: 05-10-2021 Test strips, See Instructions, 100 EA, 11, Dx: E11.9 Directions: BID, [facility] #[id number], Supply, 165, cm, 06/11/22 9:10:00 EDT, Height/Length Dosing, 97.6, kg, 06/11/22 9:10:00 EDT, Weight Dosing Start: 06-13-2022 Lancets, See Instructions, 100 EA, 11, Dx: E11.9 Directions: BID, [facility], Supply, 166, cm, 05/10/21 8:27:00 EST, Height/Length Dosing, 92.8, kg, 05/10/21 8:27:00 EST, Weight Dosing Start: 05-10-2021 Test strips, See Instructions, 100 EA, 11, Dx: E11.9 Directions: BID, [facility] #[id number], Supply, 165, cm, 06/11/22 9:10:00 EDT, Height/Length Dosing, 97.6, kg, 06/11/22 9:10:00 EDT, Weight Dosing Start: 06-13-2022 Lancets, See Instructions, 100 EA, 11, Dx: E11.9 Directions: BID, [facility], Supply, 166, cm, 05/10/21 8:27:00 EST, Height/Length Dosing, 92.8, kg, 05/10/21 8:27:00 EST, Weight Dosing Start: 05-10-2021 Test strips, See Instructions, 100 EA, 11, Dx: E11.9 Directions: BID, [facility] #[id number], Supply, 165, cm, 06/11/22 9:10:00 EDT, Height/Length Dosing, 97.6, kg, 06/11/22 9:10:00 EDT, Weight Dosing Start: 06-13-2022 Lancets, See Instructions, 100 EA, 11, Dx: E11.9 Directions: BID, [facility], Supply, 166, cm, 05/10/21 8:27:00 EST, Height/Length Dosing, 92.8, kg, 05/10/21 8:27:00 EST, Weight Dosing Start: 05-10-2021 Test strips, See Instructions, 100 EA, 11, Dx: E11.9 Directions: BID, [facility] #[id number], Supply, 165, cm, 06/11/22 9:10:00 EDT, Height/Length Dosing, 97.6, kg, 06/11/22 9:10:00 EDT, Weight Dosing Start: 06-13-2022 Lancets, See Instructions, 100 EA, 11, Dx: E11.9 Directions: BID, [facility], Supply, 166, cm, 05/10/21 8:27:00 EST, Height/Length Dosing, 92.8, kg, 05/10/21 8:27:00 EST, Weight Dosing Start: 05-10-2021 Test strips, See Instructions, 100 EA, 11, Dx: E11.9 Directions: BID, [facility][id number], Supply, 165, cm, 06/11/22 9:10:00 EDT, Height/Length Dosing, 97.6, kg, 06/11/22 9:10:00 EDT, Weight Dosing Start: 06-13-2022 Lancets, See Instructions, 100 EA, 11, Dx: E11.9 Directions: BID, [facility], Supply, 166, cm, 05/10/21 8:27:00 EST, Height/Length Dosing, 92.8, kg, 05/10/21 8:27:00 EST, Weight Dosing Start: 05-10-2021 Test strips, See Instructions, 100 EA, 11, Dx: E11.9 Directions: BID, [facility] #[id number], Supply, 165, cm, 06/11/22 9:10:00 EDT, Height/Length [...] 11, Dx: E11.9 Directions: BID, [facility] #[id number], Supply, 165, cm, 06/11/22 9:10:00 EDT, Height/Length Dosing, 97.6, kg, 06/11/22 9:10:00 EDT, Weight Dosing Start: 06-13-2022 Lancets, See Instructions, 100 EA, 11, Dx: E11.9 Directions: BID, [facility], Supply, 166, cm, 05/10/21 8:27:00 EST, Height/Length Dosing, 92.8, kg, 05/10/21 8:27:00 EST, Weight Dosing Start: 05-10-2021 Test strips, See Instructions, 100 EA, 11, Dx: E11.9 Directions: BID, [facility] #[id number], Supply, 165, cm, 06/11/22 9:10:00 EDT, Height/Length Dosing, 97.6, kg, 06/11/22 9:10:00 EDT, Weight Dosing Start: 06-13-2022 Lancets, See Instructions, 100 EA, 11, Dx: E11.9 Directions: BID, [facility], Supply, 166, cm, 05/10/21 8:27:00 EST, Height/Length Dosing, 92.8, kg, 05/10/21 8:27:00 EST, Weight Dosing Start: 05-10-2021 Test strips, See Instructions, 100 EA, 11, Dx: E11.9 Directions: BID, [facility] #[id number], Supply, 165, cm, 06/11/22 9:10:00 EDT, Height/Length Dosing, 97.6, kg, 06/11/22 9:10:00 EDT, Weight Dosing Start: 06-13-2022 Lancets, See Instructions, 100 EA, 11, Dx: E11.9 Directions: BID, [facility], Supply, 166, cm, 05/10/21 8:27:00 EST, Height/Length Dosing, 92.8, kg, 05/10/21 8:27:00 EST, Weight Dosing Start: 05-10-2021 Test strips, See Instructions, 100 EA, 11, Dx: E11.9 Directions: BID, [facility] #[id number], Supply, 165, cm, 06/11/22 9:10:00 EDT, Height/Length Dosing, 97.6, kg, 06/11/22 9:10:00 EDT, Weight Dosing Start: 06-13-2022 Lancets, See Instructions, 100 EA, 11, Dx: E11.9 Directions: BID, [facility], Supply, 166, cm, 05/10/21 8:27:00 EST, Height/Length Dosing, 92.8, kg, 05/10/21 8:27:00 EST, Weight Dosing Start: 05-10-2021 Test strips, See Instructions, 100 EA, 11, Dx: E11.9 Directions: BID, [facility] #[id number], Supply, 165, cm, 06/11/22 9:10:00 EDT, Height/Length Dosing, 97.6, kg, 06/11/22 9:10:00 EDT, Weight Dosing Start: 06-13-2022 CL CLOSURE DEVIC E EXOSEAL 6F FDA Start: 08-11-2018 CL STENT JIE 2.5 X 08 FDA Start: 08-11-2018 Functional Status Date Assessment Result Facility 04-10-2023 Functional Status N/A [facility] 03-20-2023 Functional Status N/A [facility] 03-04-2023 Functional Status N/A [facility] 02-16-2023 Functional Status N/A [facility] 01-26-2023 Functional Status N/A [facility] 01-06-2023 Functional Status N/A [facility] 09-10-2022 Functional Status N/A [facility] 06-11-2022 Functional Status N/A [facility] 04-07-2022 Functional status Patient at Baseline [facility] Work Phone: 11-28-2021 N/A [facility] 10-28-2021 No [facility] Mental Status Date Assessment Result Facility 04-07-2022 Cognitive function Cognitive Sta tus Patient at Baseline [facility] Work Phone: Clinical Notes 01-27-2022 to 04-10-2023 Note Date & Type Note Facility 04-10-2023 Evaluation + Plan note Extrac beatriz from: Title:ED Note Author:Erick BARTH, Radhames Crystal te:04/10/23 Bronchitis (J40: Bronchitis, not specified as acute or chronic) Orders: albuterol, 2 puff(s), Inhalation, q6hr Wheezing, 8.5 gm, Refill(s) 0, [id number], 165, cm, 04/10/23 9:26:00 EST, Height/Length Dosing, 96.9, kg, 04/10/23 9:26:00 EST, Weight Dosing azithromycin, = 1 packet(s), Oral, As Directed, as directed on package labeling, X 5 day(s), # 6 tab(s), Refills(s) 0, Pharmacy: [facility] #[id number], 165, cm, 04/10/23 9:26:00 EST, Height/Length Dosing, 96.9, kg, 04/10/23 9:26:00 EST, Weight Dosing predniSONE, 60 mg = 3 tab(s), Oral, Daily, X 7 day(s), # 21 tab(s), Refills(s) 0, Pharmacy: [facility] #[id number], 165, cm, 04/10/23 9:26:00 EST, Height/Length Dosing, [...] HCV Antibody RFX to Quant PCR 01/26/23 [facility]01-26-2024 Hospital Discharge instructions Patient Education 04/10/2023 [...] condition. Follow these instructions at home: Take wlyv-jps-mecaoup and prescription medicines only as told by [...] and water are not available, use hand responder. Avoid contact with people who have cold [...] it is easier to cough up. Take cagv-mqg-jklbvrq and prescription medicines only as told by [...] Document Reviewed: 07/03/2021 Elsevier Patient Education 2022 [employer]. Follow Up Care 04/10/2023 09:14:32 With:Christopher WELLS Address: [address], [place] [address]- Business (1) When:04/13/2023 11:17:35 [facility]01-05-2024 Hospital Discharge instructions Patient Education 03/20/2023 [...] plan? Your health care provider or certified medical technician can help you make a plan [...] (heat stroke). Where to find more information [place] [employer]: www.diabetes.org Summary Exercising regularly is important for overall health, especially for people who have diabetes mellitus. Exercising has many health benefits. It increases muscle strength and bone density and reduces bodyfat and stress. It also lowers and controls blood glucose. Your health care provider or certified medical technician can help you make an activity [...] provider. Document Revised: 11/28/2019 Document Reviewed: 11/28/2019 [employer] Patient Education 2022 [employer]. Follow Up Care 12/18/2022 08:59:12 With:Christopher WELLS DO, FAAFP, FAM, PED Address: [address] [place] [address] [place] [address]- When:Within 4 Month(s) [facility] 12-20-2023 Evaluation + Plan [...] Date:03/23/2023 08:30:00 AM Scheduled Provider:Mara Pastor PA-C Location:[facility] Appointment Type:Pain Management - Follow Up (FT) Appointment Date:02/01/2024 08:00:00 AM Scheduled Provider: Location:[facility] Appointment Type:FM Medicare Wellness Subsequent Future Scheduled Tests Laboratory* HgbA1c 03/27/22 * HgbA1c 06/25/22 * HCV Antibody RFX to Quant PCR 01/26/23 [facility]12-20-2023 Note [id number] [facility] NoteDiagnosis: M16.12, left hip [...] then removed. The patient tolerated procedure well. Dinoarh claros was then transferred to the recovery room in stable condition. Follow-up: The patient will update us on the response to this procedure, and agrees to continue currently prescribed/recommended therapies.[facility] Comment on above:Result Comment: Electronically Signed By: Nicola Tapia DO.br\Date and Time Signed: 03/04/23 09:06 [id number] Evaluation note* Encounter Date Diagnosis Assessment Notes [...] sooner should she deteriorate in any way [employer] Other [phone] History of Present illness Narrative* Fariha Guidry [...] I suggested that she discuss with her home performance laborer the addition of HRLC5hfcwovupi or GLP agonists. Reviewed with the patient [...] complications. 5. Diabetes, managed by endocrinology in [place]. A1c remains above target, advised patient to discuss with the home performance laborer more aggressive therapy. 6. Hypertension completely under control. 7. High-risk medication with Xarelto, so far well-tolerated. Takes baby aspirin twice weekly 8. Stage III chronic kidney disease to be monitored closely, she follow with nephrology 9. intermittent claudications and PAD followed by vascular surgery in [place]. Patient is scheduled next week to have revascularization for intermittent claudication 10. Sleep apnea not consistently using CPAP machine. Encouraged the patient to utilize it daily. Fariha Guidry MD, [facility] Review of Systems All other systems reviewed [...] tablet, Rfl: 3 Assessment/Plan 1. Atherosclerosis of [place] coronary artery of [place] heart without angina pectoris Follow Up In Cardiology atorvastatin (Lipitor) 40 mg tablet Alanine Aminotransferase Aspartate Aminotransferase Lipid Panel 2. Status post coronary angioplasty Follow Up In Cardiology 3. Essential hypertension Follow Up In Cardiology 4. Hyperlipidemia, unspecified hyperlipidemia type atorvastatin (Lipitor) 40 mg tablet Alanine Aminotransferase Aspartate Aminotransferase Lipid Panel 5. PVD (peripheral vascular disease) ([facility]) 6. Stage 3 chronic kidney disease, unspecified whether stage 3a or 3b CKD ([facility]) 7. Sleep apnea, unspecified type [facility] Work Phone: 1(205) 730-848811-30-2023 Instructions* Patient Instructions* Saloni Benavides LPN - [...] Follow up 6 months [facility] Work Phone: [phone]) 204-284211-13-2023 Hospital Discharge instructions Patient Education 01/26/2023 09:01:27 [...] Carrots. Green beans. Tomatoes. Peppers. Onions. Cucumbers. [place] sprouts. Grains Whole grains, such as whole-wheat [...] meet with a certified diabetes care and teacher education instructor? Do I need to meet with a dietitian? What number can I call if I have questions? When are the best times to check my blood glucose? Where to find more information: [place] Diabetes Association: diabetes.org Academy of Nutrition and Dietetics: eatright.org National [place] of Diabetes and Digestive and Kidney Diseases: [...] Document Reviewed: 10/03/2020 Elsevier Patient Education 2023 [employer]. 01/26/2023 09:01:11 Fall Prevention in the Home, Adult, Alwl-wf-Jnvp Fall Prevention in the Home, Adult Falls [...] Keep items that you use often in pijj-mj-eabyc places. Lower the shelves around your home [...] of the way. Do not use floor surinamese or wax that makes floors slippery. What [...] for Disease Control and PreventionKELLEY: www.cdc.gov National [place] on Aging: www.[place].nih.gov Contact a doctor if: [...] provider. Document Revised: 12/02/2021 Document Reviewed: 10/03/2020 [employer] Patient Education 2022 [employer]. 01/26/2023 09:01:04 Hepatitis C, Jbkp-mp-Lxgu Hepatitis C Hepatitis C is a liver [...] Follow these instructions at home: Medicines Take zatt-tmm-rtzxeic and prescription medicines only as told by your doctor. If you were given an antiviral medicine, take it as told by your doctor. Do not stop using the antiviral even if you start to feel better. Do not take any new medicines unless your doctor says that this is okay. This includes zetg-vkb-lkkgwec medicines and supplements. Activity Rest as needed. [...] not have soap and water, use hand responder. Cover any cuts or open sores on [...] provider. Document Revised: 01/17/2021 Document Reviewed: 01/17/2021 [employer] Patient Education 2022 [employer]. 01/26/2023 09:00:41 Exercising to Lose Weight Exercising [...] your health care provider or diet and work station support specialist (dietitian). This may include: ?Eating fewer [...] provider. Document Revised: 04/28/2021 Document Reviewed: 04/28/2021 [employer] Patient Education 2022 [employer] 01/26/2023 09:00:38 Cooking With Less Salt [...] salt. Use sodium-free baking soda when baking. [place], braise, or roast foods to add flavor [...] Soy milk. Yogurt. Low-sodium cheeses, such as Somali, Kirklin Teodoro, mozzarella, and ricotta. Sherbet or ice [...] foods you can pair it with. Herbs [place] leaves Soups, meat and vegetable dishes, and spaghetti sauce. Basil Greek dishes, soups, pasta, and fish dishes. Cilantro Meat, poultry, and vegetable dishes. [place] powder Marinades and Hong [place]er dishes. Chives Salad dressings and potato dishes. Cumin [place]er dishes, couscous, and meat dishes. Dill Fish dishes, sauces, and salads. Fennel Meat and vegetable dishes, breads, and cookies. Garlic (do not use garlic salt) Greek dishes, meat dishes, salad dressings, and sauces. Marjoram Soups, potato dishes, and meat dishes. Oregano Pizza and spaghetti sauce. Parsley Salads, soups, pasta, and meat dishes. Vanita Greek dishes, salad dressings, soups, and red meats. [...] provider. Document Revised: 02/22/2020 Document Reviewed: 02/22/2020 [employer] Patient Education 2022 [employer] 01/26/2023 09:00:36 BMI for Adults BMI [...] numbers. This can be done either in [place]ian ([place] or metric measurements. Note that charts and online BMI calculators are available to help you find your BMI quickly and easily without having to do these calculations yourself. To calculate your BMI in Ethiopian ([place] measurements: 1.Measure your weight in pounds [...] Centers for Disease Control and Prevention: www.cdc.gov [place] Heart Association: www.heart.org National Heart, Lung, and Blood [place]: www.nhlbi.nih.gov Summary Body mass index (BMI) is a number that is calculated from a person's weight and height. BMI may help estimate how much of a person's weight is composed of fat. BMI can help identify thosewho may be at higher risk for certain medical problems. BMI can be measured using Ethiopian measurements or metric measurements. BMI charts are used to identify whether you are underweight, normal weight, overweight, or obese. This information is not intended to replace advice given to you by your health care provider. Make sure you discuss any questions you have with your health care provider. Document Revised: 11/23/2019 Document Reviewed: 09/30/2019 [employer] Patient Education 2022 [employer]. [facility] 10-24-2023 Evaluation + Plan [...] Date:03/12/2023 08:00:00 AM Scheduled Provider:Linda Solorio CNP [place] Appointment Type:BADH Follow Up Appointment Date:03/20/2023 09:00:00 AM Scheduled Provider:Christopher WELLS DO, FAAFP Location:[facility] Appointment Type: Open Future Scheduled Tests Laboratory* HgbA1c 03/27/22 * HgbA1c 06/25/22 [facility]10-23-2023 Evaluation note* Encounter Date Diagnosis Assessment [...] understands and is agreement with that plan. [employer] Other 10-11-2023 NoteMicrobiology PROCEDURE: Wound Culture [R1] [...] Locations R1: This test was performed at: [facility], [address] [place] [address], [id number]- , [place], UzckwsFirelands Regional Medical CenterComment on above:Performed By: #### [id number] ####[facility] [address] [place], [place] [id number] Evaluation note* Encounter Date Diagnosis Assessment Notes [...] to see her back in 2 months. [employer] Other 08-21-2023 Evaluation note* Encounter Date Diagnosis [...] call us with any issues or concerns. [employer] Other 06-28-2023 Hospital Discharge instructions Patient Education [...] oral rehydration solution (ORS). This is an gwyp-jlc-cfktgpp medicine that helps return your body to [...] drinks, sports drinks, and soda. Eat bland, oibp-qn-pjcexn foods in small amounts as you are able. These foods include bananas, applesauce, rice, lean meats, toast, and crackers. Avoid alcohol. Avoid spicy or fatty foods. Medicines Take suig-gev-eefwfgn and prescription medicines only as told by your health care provider. If you were prescribed an antibiotic medicine, take it as told by your health care provider. Do notstop using the antibiotic even if you start to feel better. General instructions Wash your hands often using soap and water. If soap and water are not available, use a hand responder. Others in the household should wash their [...] soap and water are not available, usehand responder. Contact a health care provider if your diarrhea gets worse or you have new symptoms. Get help right away if you have signs of dehydration. This information is not intended to replace advice given to you by your health care provider. Make sure you discuss any questions you have with your health care provider. Document Revised: 09/11/2021 Document Reviewed: 09/11/2021 [employer] Patient Education 2022 [employer]. 09/10/2022 07:52:51 High-Fiber Eating Plan High-Fiber Eating [...] Bulgur wheat. Millet. Quinoa. Bran muffins. Popcorn. Flint wafer crackers. Meats and other proteins Solvay beans, kidney beans, and chase beans. Soybeans. [...] Cream cheese. Sour cream. Fats and oils [place]. Beverages Soft drinks. Other foods Cakes and [...] provider. Document Revised: 07/05/2020 Document Reviewed: 07/05/2020 [employer]ass Patient Education 2022 [employer]. Follow Up Care 06/11/2022 09:32:08 With:Linda Solorio CNP Address: When:6 months [facility] 03-29-2023 Hospital Discharge instructions [...] per serving. Talk with a diet and work station support specialist (dietitian) if you have questions about [...] Bulgur wheat. Millet. Quinoa. Bran muffins. Popcorn. Flint wafer crackers. Meats and other proteins Solvay, kidney, and chase beans. Soybeans. Split peas. [...] Cream cheese. Sour cream. Fats and oils [place]. Beverages Soft drinks. Other foods Cakes and [...] 03/02/2006 Document Revised: 01/04/2018 Document Reviewed: 01/04/2018 [employer] Patient Education 2020 [employer]. 06/11/2022 09:15:20 Hemorrhoids Hemorrhoids Hemorrhoids are swollen [...] 3 times a day. General instructions Take igtd-wts-mpzwtjp and prescription medicines only as told by [...] 02/27/2001 Document Revised: 07/29/2019 Document Reviewed: 07/22/2018 [employer] Patient Education 2020 [employer] 06/11/2022 09:15:19 Colon Polyps Colon Polyps [...] 11/26/2004 Document Revised: 06/17/2018 Document Reviewed: 06/17/2018 [employer] Patient Education 2020 [employer]. Follow Up Care 06/09/2022 16:22:13 With:Linda Solorio CNP Address: When:3 months [facility] 02-20-2023 Evaluation note* Encounter [...] She will continue her current medical regimen. [employer] Other 01-24-2023 Evaluation note* Encounter Date Diagnosis Assessment Notes Treatment Notes Treatment Clinical Notes Mar, Post-op pain (ICD-10 - G89.18) [employer] Other 01-16-2023 Evaluation + Plan note Diagnostic Tests Pending * PTH Intact 03/31/22 * Immunofixation Serum 03/31/22 * Immunofixation, Urine 03/31/22 * C3 Complement 03/31/22 * C4 Complement 03/31/22 * Free K+L Lt Chains,Qn,S 03/31/22 Future Scheduled Tests Laboratory* HgbA1c 03/27/22 * HgbA1c 06/25/22 [facility]01-16-2023 Evaluation note* Encounter Date Diagnosis Assessment [...] of both lower extremities (ICD-10 - I73.9) [employer] Other 01-12-2023 Evaluation + Plan note Future Scheduled Tests Laboratory* HgbA1c 03/27/22 * HgbA1c 06/25/22 [facility]11-14-2022 Evaluation note* Encounter Date Diagnosis Assessment [...] in 2 months time with the ABIs. [employer] Other Evaluation + Plan note Future Appointments Appointment Date:08/27/2021 09:30:00 AM Scheduled Provider: Location:.DIETARY Appointment Type:DM Diabetes Initial electrical estimator 59 (F Appointment Date:10/16/2021 01:00:00 PM Scheduled Provider: Location:.DIETARY Appointment Type:DM Diabetes Group () [facility] Evaluation + Plan note [...] US PVR Lower EXT Complete Bilat 09/24/21 [facility] Future Appointments Appointment Date:10/15/2021 09:00:00 AM Scheduled Provider: Location:.DIETARY Appointment Type:DM Diabetes Group (FT) Appointment Date:10/28/2021 09:45:00 AM Scheduled Provider:Charis Daniel MD Location[facility] Appointment Type:Vascular New Patient (FT) Appointment Date:12/16/2021 09:40:00 AM Scheduled Provider:Christopher WELLS DO, FAAFP Location:[facility] Appointment Type: Open Future Scheduled Tests Laboratory* HgbA1c 12/25/21 * HgbA1c 03/27/22 * HgbA1c 06/25/22 [facility] Future Appointments Appointment Date:12/16/2021 09:40:00 AM Scheduled Provider:Christopher WELLS DO, FAAFP Location:[facility] Appointment Type:FM Open Appointment Date:01/02/2022 01:00:00 PM Scheduled Provider: [facility] Type:DM Diabetes Group (FT) Future Scheduled Tests Laboratory* HgbA1c 12/25/21 * HgbA1c 03/27/22 * HgbA1c 06/25/22 Radiology* US LE Venous Duplex Insufficiency Bilat 10/28/21 * CTA Abd Aorto-bilat/ iliofemoral runoff 10/28/21 [facility] Future Appointments Appointment Date:12/16/2021 09:40:00 AM Scheduled Provider:Christopher WELLS DO, FAAFP Location:[facility] Appointment Type: Open Appointment Date:01/02/2022 01:00:00 PM Scheduled Provider: [facility] Type:DM Diabetes Group (FT) Appointment Date:02/24/2022 09:00:00 AM Scheduled Provider:Charis Daniel MD Location[facility] Appointment Type:Vascular Follow Up (FT) Future Scheduled Tests Laboratory* HgbA1c 12/25/21 * HgbA1c 03/27/22 * HgbA1c 06/25/22 [facility] Future Appointments Appointment Date:02/24/2022 09:00:00 AM Scheduled Provider:Charis Daniel MD Location[facility] Appointment Type:Vascular Follow Up (FT) Future Scheduled Tests Laboratory* HgbA1c 12/25/21 * HgbA1c 03/27/22 * HgbA1c 06/25/22 [facility] Future Appointments Appointment Date:02/24/2022 09:00:00 AM Scheduled Provider:Charis Daniel MD Location[facility] Appointment Type:Vascular Follow Up (FT) Future Scheduled Tests Laboratory* HgbA1c 03/27/22 * HgbA1c 06/25/22 [facility] Future Appointments Appointment Date:05/21/2022 01:05:00 PM Scheduled Provider: Location:[facility] Appointment Type:Surgery FT Diagnostic Tests Pending * O & P Exam, Routine 05/08/22 * Giardia lamblia, Direct Detection EIA 05/08/22 Future Scheduled Tests Laboratory* HgbA1c 03/27/22 * HgbA1c 06/25/22 [facility] Future Appointments Appointment Date:09/10/2022 08:00:00 AM Scheduled Provider:Linda Solorio CNP Location[place] Appointment Type:BAD Follow Up Future Scheduled Tests Laboratory* HgbA1c 03/27/22 * HgbA1c 06/25/22 [facility] Evaluation + Plan note Future Appointments Appointment Date:03/12/2023 08:00:00 AM Scheduled Provider:Linda Solorio CNP Location:[facility] Appointment Type:[facility] Follow Up Future Scheduled Tests Laboratory* HgbA1c 03/27/22 * HgbA1c 06/25/22 [facility] Evaluation + Plan note Future Appointments Appointment Date:12/18/2022 08:20:00 AM Scheduled Provider:Christopher WELLS DO, FAAFP Location:[facility] Appointment Type: Open Appointment Date:01/26/2023 08:00:00 AM Scheduled Provider: Location:[facility] Appointment Type: Medicare Wellness Subsequent Appointment Date:03/12/2023 08:00:00 AM Scheduled Provider:Linda Solorio CNP Location:[facility] Appointment Type:[facility] Follow Up Future Scheduled Tests Laboratory* HgbA1c 03/27/22 * HgbA1c 06/25/22 [facility] Future Appointments Appointment Date:01/06/2023 08:30:00 AM Scheduled Provider:Gary Cerda MD Location:[facility] Appointment Type:Pain Management - New (FT) Appointment Date:01/26/2023 08:00:00 AM Scheduled Provider: Location:[facility] Appointment Type: Medicare Wellness Subsequent Appointment Date:03/12/2023 08:00:00 AM Scheduled Provider:Linda Solorio CNP Location:[facility] Appointment Type:BAD Follow Up Appointment Date:03/20/2023 09:00:00 AM Scheduled Provider:Christopher WELLS DO, FAAFP Location:[facility] Appointment Type:FM Open Future Scheduled Tests Laboratory* HgbA1c 03/27/22 * HgbA1c 06/25/22 [facility] Future Appointments Appointment Date:01/19/2023 09:30:00 AM Scheduled Provider: [facility] Type:WC Assessment (FT) Appointment Date:01/26/2023 08:00:00 AM Scheduled Provider: Location:[facility] Appointment Type: Medicare Wellness Subsequent Appointment Date:01/27/2023 02:00:00 PM Scheduled Provider:Denton Mares DPM [facility] Appointment Type:WC Follow Up Visit (FT) Appointment Date:02/02/2023 09:45:00 AM Scheduled Provider: Location:[facility] Appointment Type:Surgery FT Appointment Date:02/17/2023 08:45:00 AM Scheduled Provider:Gary Cerda MD Location:[facility] Appointment Type:Pain Management - Follow Up (FT) Appointment Date:03/12/2023 08:00:00 AM Scheduled Provider:Linda Solorio CNP Location:[facility] Appointment Type:BAD Follow Up Appointment Date:03/20/2023 09:00:00 AM Scheduled Provider:Christopher WELLS DO, FAAFP Location:[facility] Appointment Type: Open Future Scheduled Tests Laboratory* HgbA1c 03/27/22 * HgbA1c 06/25/22 [facility] Future Appointments Appointment Date:01/26/2023 08:00:00 AM Scheduled Provider: Location:[facility] Appointment Type:FM Medicare Wellness Subsequent Appointment Date:01/27/2023 02:00:00 PM Scheduled Provider:Denton Mares DPM [facility] Appointment Type:WC Follow Up Visit (FT) Appointment Date:02/02/2023 09:45:00 AM Scheduled Provider: Location:[facility] Appointment Type:Surgery FT Appointment Date:02/17/2023 08:45:00 AM Scheduled Provider:Gary Cerda MD Location:[facility] Appointment Type:Pain Management - Follow Up (FT) Appointment Date:03/12/2023 08:00:00 AM Scheduled Provider:Linda Solorio CNP Location:[facility] Appointment Type:BAD Follow Up Appointment Date:03/20/2023 09:00:00 AM Scheduled Provider:Christopher WELLS DO, FAAFP Location:[facility] Appointment Type:FM Open Future Scheduled Tests Laboratory* HgbA1c 03/27/22 * HgbA1c 06/25/22 [facility] Future Appointments Appointment Date:01/27/2023 02:00:00 PM Scheduled Provider:Denton Mares DPM [facility] Appointment Type:WC Follow Up Visit (FT) Appointment Date:02/02/2023 09:45:00 AM Scheduled Provider: [facility] Type:Surgery FT Appointment Date:02/17/2023 08:45:00 AM Scheduled Provider:Gary Cerda MD Location:[facility] Appointment Type:Pain Management - Follow Up (FT) Appointment Date:03/12/2023 08:00:00 AM Scheduled Provider:Linda Solorio CNP Location:[facility] Appointment Type:BAD Follow Up Appointment Date:03/20/2023 09:00:00 AM Scheduled Provider:Christopher WELLS DO, FAAFP Location:[facility] Appointment Type:FM Open Appointment Date:02/01/2024 08:00:00 AM Scheduled Provider: Location:[facility] Appointment Type:FM Medicare Wellness Subsequent Future Scheduled Tests Laboratory* HgbA1c 03/27/22 * HgbA1c 06/25/22 * HCV Antibody RFX to Quant PCR 01/26/23 [facility] Evaluation + Plan note Future Appointments Appointment Date:02/02/2023 09:45:00 AM Scheduled Provider: Location:[facility] Appointment Type:Surgery FT Appointment Date:02/10/2023 02:30:00 PM Scheduled Provider:Denton Mares DPM [facility]oint[facility] Type:WC Follow Up Visit (FT) Appointment Date:02/17/2023 08:45:00 AM Scheduled Provider:Gary Cerda MD Location:[facility] Appointment Type:Pain Management - Follow Up (FT) Appointment Date:03/12/2023 08:00:00 AM Scheduled Provider:Linda Solorio CNP Location:[facility] Appointment Type:BAD Follow Up Appointment Date:03/20/2023 09:00:00 AM Scheduled Provider:Christopher WELLS DO, FAAFP Location:[facility] Appointment Type:FM Open Appointment Date:02/01/2024 08:00:00 AM Scheduled Provider: Location:[facility] Appointment Type: Medicare Wellness Subsequent Future Scheduled Tests Laboratory* HgbA1c 03/27/22 * HgbA1c 06/25/22 * HCV Antibody RFX to Quant PCR 01/26/23 [facility] Future Appointments Appointment Date:02/16/2023 01:45:00 PM Scheduled Provider: [facility] Appointment Type:WC Assessment (FT) Appointment Date:02/16/2023 02:15:00 PM Scheduled Provider: Location:[facility] Appointment Type:Surgery FT Appointment Date:02/24/2023 02:00:00 PM Scheduled Provider:Denton Mares DPM [facility] Appointment Type:WC Follow Up Visit (FT) Appointment Date:03/02/2023 08:15:00 AM Scheduled Provider:Mara Pastor PA-C Location:[facility] Appointment Type:Pain Management - Follow Up (FT) Appointment Date:03/02/2023 09:40:00 AM Scheduled Provider:Linda Solorio CNP Location[facility] Appointment Type:BAD Follow Up Appointment Date:03/20/2023 09:00:00 AM Scheduled Provider:Christopher WELLS DO, FAAFP Location:[facility] Appointment Type:FM Open Appointment Date:02/01/2024 08:00:00 AM Scheduled Provider: Location:[facility] Appointment Type: Medicare Wellness Subsequent Future Scheduled Tests Laboratory* HgbA1c 03/27/22 * HgbA1c 06/25/22 * HCV Antibody RFX to Quant PCR [facility] Future App[facility]ments Appointment Date:02/24/2023 02:00:00 PM Scheduled Provider:Denton Mares DPM [facility] Appointment Type:WC Follow Up Visit (FT) Appointment Date:03/02/2023 09:40:00 AM Scheduled Provider:Linda Solorio CNP Location[place] Appointment Type:BADH Follow Up Appointment Date:03/04/2023 08:45:00 AM Scheduled Provider: [facility] Appointment Type:Surgery FT Appointment Date:03/20/2023 09:00:00 AM Scheduled Provider:Christopher WELLS DO, FAAFP Location:[facility] Appointment Type:FM Open Appointment Date:03/23/2023 08:30:00 AM Scheduled Provider:Mara Pastor PA-C Location:[facility] Appointment Type:Pain Management - Follow Up (FT) Appointment Date:02/01/2024 08:00:00 AM Scheduled Provider: Location:[facility] Appointment Type:FM Medicare Wellness Subsequent Future Scheduled Tests Laboratory* HgbA1c 03/27/22 * HgbA1c 06/25/22 * HCV Antibody RFX to Quant PCR 01/26[facility] Future Appointments Appointment Date:03/03/2023 02:30:00 PM Scheduled Provider:Denton Mares DPM [facility] Appointment Type:WC Follow Up Visit (FT) Appointment Date:03/04/2023 08:45:00 AM Scheduled Provider: Location:[facility] Appointment Type:Surgery FT Appointment Date:03/20/2023 09:00:00 AM Scheduled Provider:Christopher WELLS DO, FAAFP Location:[facility] Appointment Type:FM Open Appointment Date:03/23/2023 08:30:00 AM Scheduled Provider:Mara Pastor PA-C Location:[facility] Appointment Type:Pain Management - Follow Up (FT) Appointment Date:02/01/2024 08:00:00 AM Scheduled Provider: Location:[facility] Appointment Type:FM Medicare Wellness Subsequent Future Scheduled Tests Laboratory* HgbA1c 03/27/22 * HgbA1c 06/25/22 * HCV Antibody RFX to Quant PCR 01/26/23 [facility] Evaluation + Plan note Future Appointments Appointment Date:03/04/2023 08:45:00 AM Scheduled Provider: Location:[facility] Appointment Type:Surgery FT Appointment Date:03/20/2023 09:00:00 AM Scheduled Provider:Christopher WELLS DO, FAAFP Location:[facility] Appointment Type: Open Appointment Date:03/23/2023 08:30:00 AM Scheduled Provider:Mara Pastor PA-C Location:[facility] Appointment Type:Pain Management - Follow Up (FT) Appointment Date:02/01/2024 08:00:00 AM Scheduled Provider: Location:[facility] Appointment Type:FM Medicare Wellness Subsequent Future Scheduled Tests Laboratory* HgbA1c 03/27/22 * HgbA1c 06/25/22 * HCV Antibody RFX to Quant PCR 01/26/23 [facility] Future Appointments Appointment Date:03/23/2023 08:30:00 AM Scheduled Provider:Mara Pastor PA-C Location:[facility] Appointment Type:Pain Management - Follow Up (FT) Appointment Date:07/28/2023 08:00:00 AM Scheduled Provider:Christopher WELLS DO, FAAFP Location:[facility] Appointment Type: Open Appointment Date:02/01/2024 08:00:00 AM Scheduled Provider: Location:[facility] Appointment Type:FM Medicare Wellness Subsequent Future Scheduled Tests Laboratory* HgbA1c 03/27/22 * HgbA1c 06/25/22 * HCV Antibody RFX to Quant PCR 01/26/23 [facility] Care Evaluation noteNo assessment information available [facility] Work Phone: Evaluation noteNo [employer] Other Evaluation note* Diagnosis Atherosclerosis of [place] coronary artery of [place] heart without angina pectoris Status post coronary angioplasty Postsurgical percutaneous transluminal coronary angioplasty status Essential hypertension Unspecified essential hypertension Hyperlipidemia, unspecified hyperlipidemia type PVD (peripheral vascular disease) ([facility]) Unspecified peripheral vascular disease Stage 3 chronic kidney disease, unspecified whether stage 3a or 3b CKD ([facility]) Sleep apnea, unspecified type documented in this encounter [facility] Work Phone: History general Narrative - Reported* [...] stent 3 STENTS Hospitalization History see above [employer] Other History general Narrative - Reported* Type [...] LEG ANGIOPLASTY 03/2022 Hospitalization History see above [employer] Other Hospital course Narrative No data available for this section [facility] Hospital Discharge instructions No data available for this section [facility] Progress note No data available for this section [facility] Consultation (Routine) - Authorized Specialty Diagnoses / Procedures Referred By Fariha t Referred To Contact Cardiology Diagnoses Atherosclerosis of [place] coronary artery of [place] heart without angina pectoris Status post coronary angioplasty Essential hypertension Procedures Follow Up In Cardiology Fariha Guidry MD [address], [address] [address] Fariha Guidry MD [address] [place] [address] Referral ID Status Reason Start Date Expiration Date V isits Requested Visits Authorized [id number] Authorized 02/12/2023 02/12/2024 1 1 [facility] Work Phone: Chief Complaint * EVON CORCORAN [...] * 5. Diabetes, managed by endocrinology in [place]. A1c remains above target * 6. Hypertension completely under control. * 7. High-risk medication with Xarelto, so far well-tolerated. Takes baby aspirin twice weekly * 8. Stage III chronic kidney disease to be monitored closely * 9. Recent diagnosis of intermittent claudications and PAD followed by vascular surgery Dr. Fredy Kaplan, she is currently going through walking exercise program * Fariha Guidry MD, [facility] Summary Purpose Family History Relationship Condition Age [...] Active Renetta Barahona NP-C Attending Provider Active Reed Man Relationship Specialty Start Date End Date Christopher Wells DO [address] [facility] [place] [place] [id number] PCP - General 08/02/18 Team Status: Inactive Member Role Status Dates Christopher Wells DO Primary Care Provider Active Start: June 09, 2023 End: June 09, 2023 Miguel Membreno MD Attending Provider Active S tart: June 09, 2023 End: June 09, 2023 INFORMATION SOURCE (unrecogn ized section and content) DATE CREATED AUTHOR 01/16/2022 [facility] DATE CREATED AUTHOR AUTHOR'S ORGANIZ ATION 01/16/2022 [facility] DATE CREATED AUTHOR AUTHOR'S ORGANIZ ATION 09/19/2022 [facility] DATE CREATED AUTHOR AUTHOR'S ORGANIZ ATION 02/14/2023 [facility] DATE CREATED AUTHOR AUTHOR'S ORGANIZ ATION 02/28/2023 [facility] DATE CREATED AUTHOR AUTHOR'S ORGANIZ ATION 03/19/2023 [facility] Special[facility] EPIC DATE CREATED AUTHOR AUTHOR'S ORGANIZ ATION 06/12/2023 [facility] REASON FOR VISIT (unrecogniz ed section [...] BE BASED ON THE PRIMARY CLINICAL RECORDS. [employer] provides no warranty or guarantee of the accuracy or completeness of information in this document.
== END 2023-06-26 07:56 | disposition home or self-care (01) ==
LOC: VC 07:55
PROVIDERS: PCP Radiology Diagnostic Radiology; Visit Provider Radiology Diagnostic Radiology
DX: I80.02 Phlebitis and thrombophlebitis of superficial vessels of left lower extremity (principal)
CPT/HCPCS: 93971; G0463

== ENCOUNTER 2023-07-06 08:58 | Outpatient (OUT) | payer MEDICARE, BC, SELFPAY ==
--- NOTE | 2023-07-06 | VEIN_ITS ---
[address] [address] Patient Name: GEOVANNY CORCORAN MRN: [id number] date: 1950 Sex: F Assigned Patient Location: Current Patient Location: Accession/Order Number: [id number] Exam Date: 07/06/2023 09:05 Report Date: 07/06/2023 10:22 At the request of: AILIN JC Procedure: VC INJ Foam Sclerosant [facility] [employer]AT[employer] SERVICES REPRESENTATIVE PROCEDURE: VC INJ Foam Sclerosant [employer]BULATORY SERVICES REPRESENTATIVE, left leg COMPARISON: None. HISTORY: Pain due to varicose veins of bilateral legs I83.813 Pre-operative Diagnosis: CEAP class C6 venous insufficiency with pain, tenderness, edema and incompetent left saphenous and varicose vein(s), chronic venous insufficiency left leg secondary to venous incompetence Post-operative Diagnosis: CEAP class C6 venous insufficiency with pain, tenderness, edema and incompetent left saphenous and varicose vein(s), chronic venous insufficiency left leg secondary to venous incompetence Procedure Performed: 1. Ultrasound-guided microfoam chemical ablation with Varithenaregistered 2. Intraoperative ultrasound guidance Anesthesia: None Indications for Procedure: 73-year-old female who presents with a long history of lower extremity pain and swelling resulting in venous stasis ulcerations. The patient failed conservative medical therapy including medical compression stockings, exercise and analgesics. Prior procedures include endovenous laser ablation and Microfoam chemical ablation. Multiple incompetent varicosities of the left leg. Duplex scan showed reflux and enlarged diameters up to 5 mm. The patient underwent informed consent including management options where the complications of infection, bleeding, pain, and skin injury were discussed. Particular attention was spent discussing thrombus extension and deep vein thrombosis as well as the possibility of pulmonary embolus and treatment with oral or injectable blood thinners. Procedure: The patient walked to the procedure room. All applicable staff donned appropriate apparel. A procedure timeout was performed to confirm correct patient, correct extremity, correct procedure, and correct room set-up including presence of all applicable supplies, devices, and drugs. A duplex ultrasound, performed by myself confirmed the location and incompetence of branch saphenous varicosities and their course was marked on the skin together with the dilated tributaries. The extent of treatment of the vein and the associated varicosities was determined through ultrasound mapping. The skin was prepped and then punctured with a butterfly needle and advanced under ultrasound guidance. The Varithenaregistered canister was activated and the canister was primed and purged as required in the instructions for use. Varithenaregistered was drawn into a sterile syringe. The following injections were made: 2 cc injected into a 4 mm varicose vein left distal medial lower leg 8 cc injected into a 5 mm varicose vein left medial proximal lower leg 5 cc injected into a 3 mm varicose veins left lateral mid lower leg Varithenaregistered was slowly administered at 0.5-1.0 cc/second with close observation by ultrasound of its course in the vessels. Total volume utilized was: 15cc. Following administration of Varithenaregistered the leg was elevated and the patient was asked to repeatedly dorsiflex the ankle to limit flow of Varithenaregistered into perforating veins. Once appropriate spasm had been confirmed in the treated veins, the vascular catheter was removed from the leg and light pressure was applied over the puncture site for hemostasis. The common femoral and deep superficial veins were then evaluated for flow and compressibility prior to dressing placement. The lower extremity was kept elevated at 45 degrees above the horizontal and cording material was applied over the saphenous segments and tributaries to allow for eccentric compression over the target vessels including the targeted saphenous vein(s). A multilayer dressing was applied consisting of foam pads, coban and thigh-high 20-30 mm Hg compression elastic support hose were placed on the patient. The leg was lowered only after compression had been applied and the patient was immediately ambulatory. The patient ambulated 10 minutes under supervision and was without apparent concerns at time of release. Post-care instructions include advising patient to keep post-treatment bandages in place and dry for 48 hours, avoid extended periods of inactivity, avoid heavy exercise for one week, wear compression stockings on the treated leg continuously for two weeks, to walk daily for 10 minutes over the next month. The patient was instructed to take an anti-inflammatory medicine as needed and to follow up for color duplex scan of the Saphenous veins, the treated branch saphenous varicosities, the adjacent deep veins, and additional treatment within 7 days. PERSONNEL: Ottoniel Mariscal RN Electronically authenticated by: AILIN JC Date: 07/06/2023 10:22
== END 2023-07-06 08:59 | disposition home or self-care (01) ==
LOC: VC 08:58
PROVIDERS: PCP Radiology Diagnostic Radiology; Visit Provider Radiology Diagnostic Radiology
DX: I83.813 Varicose veins of bilateral lower extremities with pain (principal)
CPT/HCPCS: 36466

== ENCOUNTER 2023-07-13 08:14 | Outpatient (OUT) | payer MEDICARE, BC, SELFPAY ==
--- NOTE | 2023-07-13 08:16 | VEIN_ITS ---
Patient Name: GEOVANNY CORCORAN MR#: [id number] : 1950 Exam Date: 07/13/2023 Ordering Doctor: DR AILIN JC M.D. RADIOLOGY REPORT PROCEDURE: [facility] - OFFICE VISIT FOLLOW UP COMPARISON: [facility], 06/26/2023. PROGRESS NOTES: The patient reports improvement in leg symptoms. There has been interval reduction in varicosities. The patient has followed our recommendations to walk 20-30 minutes once or twice per day since the procedure. Physical exam demonstrates decrease in varicosities of the leg. Persistent small varicosities and numerous spider veins are identified along the legs bilaterally. Review of the ultrasound performed the same day demonstrates occlusive thrombus extending throughout the treated vein(s), see separate report, consistent with a successful ablation. No thrombus extending into or beyond the saphenofemoral junction. The patient expressed a desire to proceed with treatment of remaining incompetent varicosities and partial recanalization of left great saphenous vein. The patient was informed that treatment was a process and would require several procedures/sessions. [facility]: 1. Successful ablation of the left leg treated branch saphenous vein(s). 2. Persistent varicose veins and mild lower extremity symptoms. 3. Partial recanalization of left great saphenous vein. PLAN: Microfoam chemical ablation of any remaining right lower extremity dilated/incompetent branch saphenous varicosities, followed by microfoam chemical ablation of remaining left leg incompetent varicosities and partial recanalization of left great saphenous vein. Nurse notes, history and physical were reviewed and confirmed, see attached forms. The nurse was present throughout the physical exam and consultation Dictated by: Christopher Delvalle M.D. on 07/13/2023 at 09:08 Approved by: Christopher Delvalle M.D. on 07/13/2023 at 09:12
--- NOTE | 2023-07-13 08:16 | VEIN_ITS ---
Patient Name: GEOVANNY CORCORAN MR#: [id number] : 1950 Exam Date: 07/13/2023 Ordering Doctor: DR AILIN JC M.D. RADIOLOGY REPORT PROCEDURE: VC EXT VENOUS LT LIMITED COMPARISON: VC EXT VENOUS LT LIMITED, 06/26/2023. INDICATIONS: Phlebitis of superficial veins of left lower extremity I80.02 TECHNIQUE: Lower extremity freeman scale and Duplex Doppler evaluation of the deep venous system from the inguinal ligament through the calf veins. FINDINGS: REGION: Left lower extremity. THROMBI: Negative for DVT. Chemically induced thrombus in multiple varicose veins left leg. COMPRESSIBILITY: Non-compressible segments corresponding to thrombus FLOW: Areas of no flow corresponding to thrombus OTHER: GSV in thigh has partially recanalized. CONCLUSION: 1. Successful post ablation occlusion of left leg treated branch saphenous varicosities. 2. Partial recanalization of great saphenous vein. Dictated by: Christopher Delvalle M.D. on 07/13/2023 at 08:55 Approved by: Christopher Delvalle M.D. on 07/13/2023 at 09:08
== END 2023-07-13 08:15 | disposition home or self-care (01) ==
LOC: VC 08:14
PROVIDERS: PCP Radiology Diagnostic Radiology; Visit Provider Radiology Diagnostic Radiology
DX: I80.02 Phlebitis and thrombophlebitis of superficial vessels of left lower extremity (principal)
CPT/HCPCS: 93971; G0463

== ENCOUNTER 2023-07-20 14:19 | Outpatient (OUT) | payer MEDICARE, BC, SELFPAY ==
--- NOTE | 2023-07-20 14:20 | VEIN_ITS ---
The [address] [address] Patient Name: GEOVANNY CORCORAN MRN: [id number] date: 1950 Sex: F Assigned Patient Location: Current Patient Location: Accession/Order Number: [id number] Exam Date: 07/20/2023 14:25 Report Date: 07/20/2023 15:19 At the request of: AILIN JC Procedure: VC INJ Foam Sclerosant WUS [employer]QUETTE MAKER PROCEDURE: VC INJ Foam Sclerosant WUS BRIQUETTE MAKER, left leg COMPARISON: None. HISTORY: I83.813 Pain due to varicose veins of bilateral legs Pre-operative Diagnosis: CEAP class C6 venous insufficiency with pain, tenderness, edema and incompetent left varicose and saphenous vein(s), chronic venous insufficiency left leg secondary to venous incompetence Post-operative Diagnosis: : CEAP class C6 venous insufficiency with pain, tenderness, edema and incompetent left varicose and saphenous vein(s), chronic venous insufficiency left leg secondary to venous incompetence Procedure Performed: 1. Ultrasound-guided microfoam chemical ablation with Varithenaregistered 2. Intraoperative ultrasound guidance Anesthesia: None Indications for Procedure: 73-year-old female who presents with a long history of lower extremity pain and swelling varicose veins culminating and nonhealing venous stasis ulcerations. The patient failed conservative medical therapy including medical compression stockings, exercise and analgesics. Prior procedures include intravenous laser ablation and Microfoam chemical ablation. Multiple incompetent varicosities of the left leg. Duplex scan showed reflux and enlarged diameters up to 5 mm. The patient underwent informed consent including management options where the complications of infection, bleeding, pain, and skin injury were discussed. Particular attention was spent discussing thrombus extension and deep vein thrombosis as well as the possibility of pulmonary embolus and treatment with oral or injectable blood thinners. Procedure: The patient walked to the procedure room. All applicable staff donned appropriate apparel. A procedure timeout was performed to confirm correct patient, correct extremity, correct procedure, and correct room set-up including presence of all applicable supplies, devices, and drugs. A duplex ultrasound, performed by myself confirmed the location and incompetence of branch saphenous varicosities and their course was marked on the skin together with the dilated tributaries. The extent of treatment of the vein and the associated varicosities was determined through ultrasound mapping. The skin was prepped and then punctured with a butterfly needle and advanced under ultrasound guidance. The Varithenaregistered canister was activated and the canister was primed and purged as required in the instructions for use. Varithenaregistered was drawn into a sterile syringe. The following injections were made: 6 cc injected into a incompetent distal left great saphenous vein just above the level of the ankle measuring 5 mm 2 cc injected into a 3 mm varicose vein left medial ankle 6 cc injected into a 4 mm incompetent vein left distal thigh Varithenaregistered was slowly administered at 0.5-1.0 cc/second with close observation by ultrasound of its course in the vessels. Total volume utilized was: 14cc. Following administration of Varithenaregistered the leg was elevated and the patient was asked to repeatedly dorsiflex the ankle to limit flow of Varithenaregistered into perforating veins. Once appropriate spasm had been confirmed in the treated veins, the vascular catheter was removed from the leg and light pressure was applied over the puncture site for hemostasis. The common femoral and deep superficial veins were then evaluated for flow and compressibility prior to dressing placement. The lower extremity was kept elevated at 45 degrees above the horizontal and cording material was applied over the saphenous segments and tributaries to allow for eccentric compression over the target vessels including the targeted saphenous vein(s). A multilayer dressing was applied consisting of foam pads, coban and thigh-high 20-30 mm Hg compression elastic support hose were placed on the patient. The leg was lowered only after compression had been applied and the patient was immediately ambulatory. The patient ambulated 10 minutes under supervision and was without apparent concerns at time of release. Post-care instructions include advising patient to keep post-treatment bandages in place and dry for 48 hours, avoid extended periods of inactivity, avoid heavy exercise for one week, wear compression stockings on the treated leg continuously for two weeks, to walk daily for 10 minutes over the next month. The patient was instructed to take an anti-inflammatory medicine as needed and to follow up for color duplex scan of the Saphenous veins, the treated branch saphenous varicosities, the adjacent deep veins, and additional treatment within 7 days. PERSONNEL: Ottoniel Mariscal RN Electronically authenticated by: AILIN JC Date: 07/20/2023 15:19
== END 2023-07-20 14:20 | disposition home or self-care (01) ==
LOC: VC 14:19
PROVIDERS: PCP Radiology Diagnostic Radiology; Visit Provider Radiology Diagnostic Radiology
DX: I83.813 Varicose veins of bilateral lower extremities with pain (principal)
CPT/HCPCS: 36466

== ENCOUNTER 2023-07-27 09:45 | Outpatient (OUT) | payer MEDICARE, BC, SELFPAY ==
--- NOTE | 2023-07-27 09:55 | VEIN_ITS ---
Patient Name: GEOVANNY CORCORAN MR#: [id number] : 1950 Exam Date: 07/27/2023 Ordering Doctor: DR GOMEZ SHER M.D. RADIOLOGY REPORT PROCEDURE: VC EXT VENOUS LT LIMITED COMPARISON: VC EXT VENOUS LT LIMITED, 07/13/2023. VC EXT VENOUS LT LIMITED, 06/26/2023. INDICATIONS: I80.02 Phlebitis of superficial veins of left lower extremity TECHNIQUE: Lower extremity freeman scale and Duplex Doppler evaluation of the deep venous system from the inguinal ligament through the calf veins. FINDINGS: REGION: Left lower extremity. THROMBI: Negative for DVT. Chemically induced thrombus in multiple varicose veins. Partial compressibility of GSV from prox to mid thigh. COMPRESSIBILITY: Non-compressible segments corresponding to thrombus FLOW: Areas of no flow corresponding to thrombus OTHER: No significant varicose veins remain. CONCLUSION: Post ablation occlusion of treated left leg varicose veins. Dictated by: Gomez Sher MD on 07/27/2023 at 10:20 Approved by: Gomez Sher MD on 07/27/2023 at 10:22
--- NOTE | 2023-07-27 09:55 | VEIN_ITS ---
Patient Name: GEOVANNY CORCORAN MR#: [id number] : 1950 Exam Date: 07/27/2023 Ordering Doctor: DR GOMEZ SHER M.D. RADIOLOGY REPORT PROCEDURE: [facility] - OFFICE VISIT FOLLOW UP COMPARISON: [facility] EST [facility], 07/13/2023. [facility] EST [facility], 06/26/2023. PROGRESS NOTES: The patient reports no problems following left leg microfoam chemical ablation. The patient did wear her compression stockings. She did not require oral analgesics. Patient has tried exercise Physical exam demonstrates multiple thrombosed varicose veins. No erythema or warmth to suggest cellulitis or thrombophlebitis. No active ulceration Review of the ultrasound performed the same day demonstrates occlusive thrombus extending throughout the treated left leg varicose veins. No deep vein thrombus. No incompetent residual varicose veins.. The patient expressed a desire to proceed with treatment of spider in reticular veins with injection sclerotherapy. VEIN/[facility] EST LMT[facility] IMPRESSION: 1. Successful ablation of treated incompetent left leg varicose veins. 2. Persistent bilateral reticular and spider veins. PLAN: Injection sclerotherapy Nurse notes, history and physical were reviewed and confirmed, see attached forms. The nurse was present throughout the physical exam and consultation Dictated by: Gomez Sher MD on 07/27/2023 at 10:40 Approved by: Gomez Sher MD on 07/27/2023 at 11:30
== END 2023-07-27 09:46 | disposition home or self-care (01) ==
LOC: VC 09:54
PROVIDERS: PCP Radiology Diagnostic Radiology; Visit Provider Radiology Diagnostic Radiology
DX: I80.02 Phlebitis and thrombophlebitis of superficial vessels of left lower extremity (principal)
CPT/HCPCS: 93971; G0463

== ENCOUNTER 2023-08-03 09:00 | Outpatient (OUT) | payer MEDICARE, BC, SELFPAY ==
--- NOTE | 2023-08-03 | VEIN_ITS ---
[address] [address] Patient Name: GEOVANNY CORCORAN MRN: [id number] date: 1950 Sex: F Assigned Patient Location: Current Patient Location: Accession/Order Number: [id number] Exam Date: 08/03/2023 09:02 Report Date: 08/03/2023 10:54 At the request of: AILIN JC Procedure: VC INJ Sclerosing SOLMULT Vein EXAMINATION: VC INJ Sclerosing SOLMULT Vein HISTORY: I83.813 Pain due to varicose veins of bilateral legs The risks and benefits of the procedure were explained at length to the patient and informed written consent was obtained. The procedure was performed under sterile technique. The patient's leg was wrapped with Coban and postprocedural verbal and written instructions provided. Ottoniel Mariscal RN was present and assisted. SCLEROSANT: 2mL 0.5% Polidocanol. VEIN(S) INJECTED: 24 veins in the right leg. VISUALIZATION: Ultrasound was not used to visualize the sclerosant. ANESTHESIA: Supercooled air. COMPLICATIONS: None. Electronically authenticated by: AWA SNYDER Date: 08/03/2023 10:54
== END 2023-08-03 09:01 | disposition home or self-care (01) ==
LOC: VC 09:00
PROVIDERS: PCP Radiology Diagnostic Radiology; Visit Provider Radiology Diagnostic Radiology
DX: I83.813 Varicose veins of bilateral lower extremities with pain (principal)
CPT/HCPCS: 36471

== ENCOUNTER 2023-08-17 08:53 | Outpatient (OUT) | payer MEDICARE, BC, SELFPAY ==
--- NOTE | 2023-08-17 08:55 | VEIN_ITS ---
[address] [address] Patient Name: GEOVANNY CORCORAN MRN: [id number] date: 1950 Sex: F Assigned Patient Location: Current Patient Location: Accession/Order Number: [id number] Exam Date: 08/17/2023 08:56 Report Date: 08/17/2023 10:49 At the request of: AILIN JC Procedure: VC INJ Sclerosing SOLMULT Vein EXAMINATION: VC INJ Sclerosing SOLMULT Vein HISTORY: I83.813 Bilateral leg painful varicose veins The risks and benefits of the procedure were explained at length to the patient and informed written consent was obtained. The procedure was performed under sterile technique. The patient's leg was wrapped with Coban and postprocedural verbal and written instructions provided. Ottoniel Mariscal RN was present and assisted. SCLEROSANT: 2mL 0.5% Polidocanol. VEIN(S) INJECTED: 22 veins in the left leg. VISUALIZATION: Ultrasound was not used to visualize the sclerosant. ANESTHESIA: Supercooled air. COMPLICATIONS: None. Electronically authenticated by: AWA SNYDER Date: 08/17/2023 10:49
== END 2023-08-17 08:54 | disposition home or self-care (01) ==
LOC: VC 08:53
PROVIDERS: PCP Radiology Diagnostic Radiology; Visit Provider Radiology Diagnostic Radiology
DX: I83.813 Varicose veins of bilateral lower extremities with pain (principal)
CPT/HCPCS: 36471

== ENCOUNTER 2023-09-07 08:56 | Outpatient (OUT) | payer MEDICARE, BC, SELFPAY ==
--- NOTE | 2023-09-07 08:58 | VEIN_ITS ---
[address] [address] Patient Name: GEOVANNY CORCORAN MRN: [id number] date: 1950 Sex: F Assigned Patient Location: Current Patient Location: Accession/Order Number: [id number] Exam Date: 09/07/2023 09:02 Report Date: 09/07/2023 09:38 At the request of: AILIN JC Procedure: VC INJ Sclerosing SOLMULT Vein EXAMINATION: VC INJ Sclerosing SOLMULT Vein HISTORY: Pain due to varicose veins of bilateral legs I83.813 COMPARISON: No relevant comparison available. TECHNIQUE: The risks and benefits of the procedure were explained at length to the patient and informed written consent was obtained. Ottoniel Mariscal was present and assisted. The procedure was performed under sterile technique. The patient's leg was wrapped with Coban and postprocedural verbal and written instructions provided. SCLEROSANT: 4 cc, 0.5% polidocanol VEIN(S) INJECTED: 29 veins in the right leg VISUALIZATION: Ultrasound was not used to visualize the sclerosant ANESTHESIA: Supercooled air COMPLICATIONS: None VEIN/VC INJ Sclerosing SOLMULT Vein IMPRESSION: Technically successful sclerotherapy as described Electronically authenticated by: AILIN JC Date: 09/07/2023 09:38
--- OUTSIDE RECORDS SUMMARY | 2023-09-07 09:01 | XMS_ITS ---
Patient Summarization (C-CDA 2.1 CCD) Created on: September 07, 2023 Evon Corcoran : 1950 Sex: Female Author Organization Sample organization Care Team Providers Care Draw Operator Name Role Phone Christopher Wells Unavailable [...] Guidry, Dr. Fariha Norwood Referring Carolina vailable Miguel Membreno Unavailable DO Christopher Wells Primary Care Provider [phone] MD Miguel Membreno Attending Provider Renetta Barahona Unavailable Dr. Christopher Wells Primary Care Unavailable Guidry, Dr. Fariha Norwood Attending Carolina vailable DO Christopher Wells Primary Care Provider MD Miguel Membreno Attending Provider BINU Barahona Attending Provider Christopher Wells DO Primary Care Provider DO Christopher Wells Primary Care Provider MD Miguel Membreno Attending Provider Christopher Wells Primary Care Unavailable Ruttino, Renetta R Attending Unavailable Renetta Barahona R Admitting Unavailable Kaple, Christopher A Primary Care Unavailable Buehrer, Miguel Admitting Unavailable Buehrer, Miguel Attending Unavailable Buehrer, Miguel Attending Unavailable Buehrer, Miguel Admitting Unavailable Kaple, Christopher A Primary Care Unavailable Buehrer, Miguel Attending Unavailable Buehrer, Miguel Admitting Unavailable Kaple, Christopher A Primary Care Unavailable Buehrer, Miguel Attending Unavailable Buehrer, Miguel Admitting Unavailable Kaple, Christopher A Primary Care Unavailable DOLCE, DENTON Gomez Attending Unavailable DOLCE, DENTON Gomez Attending Unavailable DOLCE, DENTON Gomez Attending Unavailable DOLCE, DENTON Gomez Attending Unavailable Dolce, Denton Gomez Attending Unavailable Dolce, Denton Gomez Attending Unavailable KAPLE, Christopher A Attending Unavailable [place], Catrachito D Referring Unavailable [place], Catrachito D Attending Unavailable [place], Catrachito D Admitting Unavailable Guidry, Fried Admitting Unavailable Guidry, Fried Attending Unavailable Akkina, Klaus Attending Unavailable Akkina, Klaus Admitting Unavailable Akkina, Klaus Admitting Unavailable Akkina, Klaus Attending Unavailable KAPLE, Christopher A Admitting Unavailable KAPLE, Christopher A Attending Unavailable KAPLE, Christopher A Attending Unavailable KAPLE, Christopher A Attending Unavailable KAPLE, Christopher A Attending Unavailable KAPLE, Christopher A Attending Unavailable KAPLE, Christopher A Attending Unavailable KAPLE, Christopher A Attending Unavailable MD Gary Cerda Admitting Unavailable Gary Cerda Referring Unavailable Gary Cerda Attending Unavailable Nicola Tapia. Referring Unavailable Nicola Tapia Attending Unavailable DO Nicola Tapia Admitting Unavailabl e KAPLE, Christopher A Attending Unavailable KAPLE, Christopher A Admitting Unavailable KAPLE, Christopher A Referring Unavailable KAPLE, Christopher A Admitting Unavailable Osmin, Linda A Attending Unavailable Osmin, Linda A Attending Unavailable [place], Catrachito D Referring Unavailable [place], Catrachito D Attending Unavailable [place], Catrachito D Admitting Unavailable Dolce, Denton Gomez Attending Unavailable Dolce, Denton Gomze Attending Unavailable Dolce, Denton Gomez Attending Unavailable Mara Pastor Attending Unavailable KAPJANNA, Christopher Montenegro Referring Unavailable TAB Pastor Admitting Unavailabl e MD Gary Cerda Admitting Unavailable Gary Cerda Attending Unavailable Maryann, Catrachito D Referring Unavailable Dolce, Denton Gomez Attending Unavailable Dolce, Denton Gomez Admitting Unavailable Malvin Gupta Attending Unavailable Denton Castro Attending Unavailable Denton Castro Referring Unavailable Denton Castro Attending Unavailable FARIHA GUIDRY Attending Unavailable CHRISTOPHER WELLS Primary Care Unavailable FARIHA GUIDRY Attending Unavailable FARIHA GUIDRY Referring Unavailable CHRISTOPHER WELLS Primary Care Unavailable Allergies Allergy Classification Reported Allergen(s) Allergy Type Date of Onset Reaction(s) Facility (20 sources) Doxazosin; Translations: [Cardura] Drug Allergy 023 Unknown (qualifier value), Diarrhea [place] [address] DO Work Phone: (20 sources) hydroCHLOROthiazide; Translations: [hydroCHLOROthiazide CAPS] Drug Allergy 023 Diarrhea [facility] 250 DO Work Phone: (20 sources) hydroCHLOROthiazide / Spironolactone; Translations: [Aldactazide] Drug Allergy 023 Weal (disorder), Diarrhea [place] [address] DO Work Phone: (20 sources) Lisinopril; Translations: [Zestril] Drug Allergy 023 Diarrhea (finding), Diarrhea [facility] 250 DO Work Phone: (20 sources) metFORMIN; Translations: [Glucophage] Drug Allergy 023 Diarrhea [place] [address] DO Work Phone: (20 sources) valsartan; Translations: [Diovan] Drug Allergy 023 Unknown (qualifier value), Diarrhea [facility] 250 DO Work Phone: (20 sources) hydroCHLOROthiazide / Lisinopril; Translations: [hydrochlorothiazide-l isinopril] Drug Allergy Diarrhea (finding) [facility] (20 sources) Terazosin; Translations: [terazosin] Drug Allergy 019 Unknown, Unknown Reaction [facility] (9 sources) metFORMIN Drug Allergy Unknown [employer] Other (8 sources) Doxazosin; Translations: [doxazosin] Drug Allergy Unknown Reaction [facility] (7 sources) hydroCHLOROthiazide; Translations: [hydrochlorothiazide] Drug Allergy Unknown Reaction, Diarrhea [facility] (7 sources) Lisinopril; Translations: [lisinopril] Drug Allergy Unknown Reaction [facility] (7 sources) metFORMIN; Translations: [metformin] Drug Allergy Unknown Reaction, Diarrhea [facility] (6 sources) pioglitazone; Translations: [pioglitazone] Drug Allergy Unknown Reaction [facility] (6 sources) Spironolactone; Translations: [spironolactone] Drug Allergy Unknown Reaction, Hives [facility] (7 sources) valsartan; Translations: [valsartan] Drug Allergy Unknown Reaction [facility] (1 source) Terazosin Drug Allergy [facility] Repository (1 source) Lisinopril; Translations: [Prinivil] Drug Allergy [facility] Repository (1 source) SPIRONOLACTON-HYDROCHL OROTHIAZ; Translations: [SPIRONOLACTON-HYDROCH LOROTHIAZ] Propensity to adverse reactions to drug (disorder) 023 RUST 3 Repository Encounters Encounter Date Encounter Type Care Provider Facility Start: 02-01-2024 ambulatory Christopher WELLS Facility: [facility] Start: 10-29-2023 ambulatory Christopher WELLS Facility: [facility] Start: 08-27-2023 End: 08-27-2023 Office outpatient visit 25 minutes Fariha Guidry MD Work Phone: [facility] Comment on above: Atherosclerosis of n ative coronary artery of viejas heart without angina pectoris; Status post coronary angioplasty; Essential hypertension; Hyperlipidemia, unspecified hyperlipidemia type; PVD (peripheral vascular disease) ([facility]); Stage 3 chronic kidney disease, unspecified whether stage 3a or 3b CKD (Multi); Sleep apnea, unspecified type; BMI 35.0-35.9,adult; Never smoked tobacco; Claudication, intermittent ([facility] Start: 08-27-2023 End: 08-27-2023 ambulatory FRIED [facility] Ambulatory Start: 07-28-2023 End: 07-29-2023 ambulatory Christopher WELLS Facility:[facility] Start: 07-28-2023 End: 07-28-2023 Patient encounter procedure Christopher WELLS [facility] Start: 07-22-2023 End: 07-22-2023 ambulatory DENTON D DOLCE Not Available Start: 06-09-2023 End: 06-09-2023 ambulatory [facility] Work Phone: Start: 06-09-2023 End: 06-09-2023 Patient encounter procedure [facility] Vascular Surgery Work Phone: Start: 05-13-2023 End: 05-13-2023 ambulatory DENTON D DOLCE Not Available Start: 05-11-2023 End: 05-12-2023 ambulatory Christopher WELLS [facility] Start: 04-10-2023 End: 04-10-2023 Emergency department patient visit Nelidalacy Perez Alonso Facility[facility] Start: 04-10-2023 End: 04-10-2023 Emergency department patient visit [facility] Chris Gupta [facility] Start: 03-23-2023 End: 03-24-2023 ambulatory Mara Pastor [facility] Start: 03-20-2023 End: 03-21-2023 ambulatory Christopher WELLS Facility:[facility] Start: 03-20-2023 End: 03-20-2023 Patient encounter procedure Christopher WELLS [facility] Start: 03-18-2023 End: 03-18-2023 ambulatory DENTON D DOLCE Not Available Start: 03-04-2023 End: 03-05-2023 ambulatory Nicola Tapia [facility] Start: 03-04-2023 End: 03-04-2023 Pain Management Nicola Tapia [facility] Start: 03-03-2023 End: 03-03-2023 Patient encounter procedure Denton Castro [facility] Start: 03-03-2023 End: 03-04-2023 ambulatory Denton Castro [facility] Other Start: 03-03-2023 Office outpatient vi sit 25 minutes Miguel Membreno [facility] Vascular Surgery Start: 03-02-2023 End: 03-03-2023 ambulatory Linda Solorio Facility:[facility] Start: 03-02-2023 End: 03-02-2023 Patient encounter procedure Linda Solorio [facility] Start: 02-24-2023 End: 02-25-2023 ambulatory Denton Castro [facility] Start: 02-20-2023 End: 02-20-2023 ambulatory DENTON CASTRO Not Available Start: 02-19-2023 End: 04-10-2023 ambulatory Christopher WELLS Facility:CD:[id number] Start: 02-18-2023 End: 02-18-2023 ambulatory Miguel Membreno Facility:[facility] Start: 02-18-2023 End: 02-18-2023 Admission to same day surgery center DO Christopher Wells Work Phone: [facility]-Interventional Rad[facility] Work Phone: Start: 02-18-2023 End: 02-18-2023 ambulatory DO Christopher Wells Work Phone: [facility] Work Phone: Start: 02-16-2023 End: 02-17-2023 ambulatory MD Gary Cerda [facility] Start: 02-16-2023 End: 02-16-2023 Pain Management Gary Cerda [facility] Start: 02-16-2023 End: 02-17-2023 ambulatory Denton Jason Castro [facility] Start: 02-16-2023 End: 02-16-2023 Patient encounter procedure Denton Castro [facility] Start: 02-12-2023 End: 02-12-2023 Office outpatient visit 25 minutes Fariha Guidry MD Work Phone: [facility] Comment on above: Atherosclerosis of n ative coronary artery of viejas heart without angina pectoris; Status post coronary angioplasty; Essential hypertension; Hyperlipidemia, unspecified hyperlipidemia type; PVD (peripheral vascular disease) ([facility]); Stage 3 chronic kidney disease, unspecified whether stage 3a or 3b CKD ([facility]); Sleep apnea, unspecified type Start: 02-12-2023 End: 02-12-2023 ambulatory FARIHA Hall [facility] Amb[facility] Start: 02-10-2023 End: 02-11-2023 ambulatory Denton Castro [facility] Start: 02-10-2023 End: 02-10-2023 Patient encounter procedure Denton Castro [facility] Start: 01-27-2023 End: 01-28-2023 ambulatory Denton Gomez Suzan [employer] Other Start: 01-27-2023 Telephone encounter Miguel Membreno [facility] Vascular Surgery Start: 01-27-2023 End: 01-27-2023 Patient encounter procedure Denton Gomez Suzan [facility] Start: 01-26-2023 End: 01-27-2023 ambulatory Christopher WELLS Facility:[facility] Start: 01-26-2023 End: 01-26-2023 Patient encounter procedure Christopher WELLS [facility] Start: 01-26-2023 End: 01-26-2023 Well adult monitoring check done Christopher WELLS [facility] Start: 01-19-2023 End: 01-20-2023 ambulatory Denton Castro [facility] Start: 01-19-2023 End: 01-19-2023 Patient encounter procedure Denton Castro [facility] Start: 01-13-2023 End: 01-14-2023 ambulatory Denton Castro [facility] Start: 01-13-2023 End: 01-13-2023 Patient encounter procedure Denton Castro [facility] Start: 01-06-2023 End: 01-07-2023 ambulatory MD Gary Cerda Facility[facility] Start: 01-06-2023 End: 01-06-2023 Pain Management Gary Cerda [facility] Start: 01-05-2023 End: 01-05-2023 ambulatory Miguel Membreno Other [employer] Other Start: 01-05-2023 Office outpatient vi sit 25 minutes Miguel Membreno [facility] Vascular Surgery Start: 12-31-2022 End: 01-01-2023 ambulatory Catrachito Wolf Facility[facility] Start: 12-31-2022 End: 12-31-2022 Patient encounter procedure Catrachito Gomez Maryann [facility] Start: 12-22-2022 End: 12-23-2022 ambulatory Denton Castro [facility] Start: 12-18-2022 End: 12-19-2022 ambulatory Christopher WELLS Facility:[facility] Start: 12-08-2022 End: 12-09-2022 ambulatory Catrachito Wolf [facility] Start: 12-08-2022 End: 12-08-2022 Patient encounter procedure Catrachito Wolf [facility] Start: 11-24-2022 End: 11-25-2022 ambulatory Christopher WELLS [facility] Start: 11-24-2022 End: 11-24-2022 Patient encounter procedure Christopher WELLS [facility] Start: 11-06-2022 End: 11-07-2022 ambulatory Christopher WELLS Facility:[facility] Start: 11-04-2022 Office outpatient vi sit 25 minutes Miguel Membreno [facility] Vascular Surgery Start: 11-04-2022 End: 11-04-2022 ambulatory DO Christopher Wells Work Phone: [facility] Other Start: 11-04-2022 End: 11-04-2022 Patient encounter procedure DO Christopher Wells Work Phone: [facility]-Ultrasound [facility] Vascular Start: 11-03-2022 Follow-up encounter Renetta Musa Vascular Surgery Start: 11-03-2022 End: 11-03-2022 ambulatory Christopher Wells [facility] Other Start: 11-03-2022 End: 11-03-2022 Patient encounter procedure DO Christopher Wells Work Phone: [facility] Vascular Start: 10-31-2022 End: 11-01-2022 ambulatory Klaus Akkina Facility[facility] Start: 10-31-2022 End: 10-31-2022 Patient encounter procedure Klaus Akkina [facility] Start: 09-18-2022 Chart Update Christopher Wells Work Phone: [facility] 250 DO Work Phone: Start: 09-17-[address] Christopher Wells [facility] ity:[id number] Start: 09-10-2022 End: 09-11-2022 ambulatory Linda Solorio Facility:[facility] Start: 09-10-2022 End: 09-10-2022 Patient encounter procedure Linda Solorio [facility] Start: 08-01-2022 End: 08-02-2022 ambulatory Fariha Guidry Facility[facility] Start: 07-23-2022 Rx Renewal [facility] Work Phone: Start: 06-13-2022 Rx Renewal [facility] Work Phone: Start: 06-11-2022 End: 06-11-2022 Patient encounter procedure Linda A Osmin [facility] Start: 05-08-2022 End: 05-08-2022 Lab Drop off Linda Nayakz [facility] Start: 05-05-2022 End: 05-05-2022 ambulatory Miguel Membreno Other [employer] [facility] Other Start: 05-05-2022 Office outpatient vi sit 25 minutes Miguel Membreno [facility] Vascular Surgery Start: 04-08-2022 End: 04-08-2022 ambulatory Renetta Barahona Other [employer] Other Start: 04-08-2022 Telephone encounter Renetta Musa Vascular Surgery Start: 04-07-2022 End: 04-07-2022 ambulatory Miguel Membreno Facility:[facility] Start: 04-07-2022 End: 04-07-2022 Admission to same day surgery center DO Christopher Wells Work Phone: [facility]-Inter[facility] Work Phone: Start: 04-07-2022 End: 04-07-2022 ambulatory DO Christopher Wells Work Phone: [facility] Work Phone: Start: 03-31-2022 Follow-up encounter Renetta Musa Vascular Surgery Start: 03-31-2022 End: 03-31-2022 ambulatory Miguel Membreno Facility:[facility] Start: 03-31-2022 End: 03-31-2022 ambulatory DO Christopher Wells Work Phone: [facility] Work Phone: Start: 03-31-2022 End: 03-31-2022 Patient encounter procedure DO Christopher Wells Work Phone: [facility]-Ul[facility]ound [facility] Vascular Start: 03-31-2022 End: 03-31-2022 Patient encounter procedure Klaus Josephbrielle [facility] Start: 02-12-2022 End: 02-12-2022 Patient encounter procedure Christopher WELLS [facility] Start: 01-27-2022 End: 01-27-2022 ambulatory Miguel Membreno Other [facility] Other Start: 01-27-2022 Office outpatient ne w 45 minutes Miguel Membreno [facility] Vascular Surgery Start: 01-15-[address] Fariha Guidry Facility: Start: 01-15-2022 Office outpatient vi sit 25 minutes Christopher Wells Work Phone: -[facility] 600 DO Work Phone: Start: 12-31-2021 End: 06-01-2022 Recurring Charis Daniel [facility] Start: 11-28-2021 End: 11-28-2021 Patient encounter procedure Charis Daniel [facility] Start: 11-12-2021 Rx Renewal Christopher Wells Work Phone: [facility] 250 DO Work Phone: Start: 10-28-2021 Rx Renewal Christopher Wells Work Phone: [facility] 250 DO Work Phone: Start: 10-28-2021 End: 10-28-2021 [facility] [place] [facility] [place] [facility] Start: 10-01-2021 End: 10-01-2021 Patient encounter procedure Christopher WELLS [facility] Start: 09-24-2021 End: 09-24-2021 Patient encounter procedure Christopher WELLS [facility] Start: 08-08-2021 End: 08-08-2021 Patient encounter procedure Christopher WELLS [facility] Start: 07-30-2021 Rx Renewal Christopher Wells Work Phone: [facility] 250 DO Work Phone: Start: 06-12-2021 End: 01-13-2022 Recurring Christopher WELLS [facility] Start: 05-28-2021 Office outpatient vi sit 10 minutes Christopher Wells Work Phone: [facility] 600 DO Work Phone: Start: 05-28-2021 ambulatory Christopher Wells Facility: Start: 05-12-2021 Chart Update Christopher Wells Work Phone: [facility] 250 DO Work Phone: Start: 05-08-2021 ambulatory Christopher Wells Facility: Medical Equipment Procedure Code Equipment Code Equipment [...] 11, Dx: E11.9 Directions: BID, [id number], Supply, 165, cm, 06/11/22 9:10:00 EDT, Height/Length Dosing, 97.6, kg, 06/11/22 9:10:00 EDT, Weight Dosing Start: 06-13-2022 Lancets, See Instructions, 100 EA, 11, Dx: E11.9 Directions: BID, [facility], Supply, 166, cm, 05/10/21 8:27:00 EST, Height/Length Dosing, 92.8, kg, 05/10/21 8:27:00 EST, Weight Dosing Start: 05-10-2021 Test strips, See Instructions, 100 EA, 11, Dx: E11.9 Directions: BID, [facility] #[id number], Supply, 165, cm, 06/11/22 9:10:00 EDT, Height/Length Dosing, 97.6, kg, 06/11/22 9:10:00 EDT, Weight Dosing Start: 06-13-2022 CL CLOSURE DEVIC E EXOSEAL 6F FDA Start: 08-11-2018 CL STENT JIE 2.5 X 08 FDA Start: 08-11-2018 Multiple periphe ral artery stent, bare-metal [id number] FDA Start: 04-07-2022 Lancets, See Instructions, 100 EA, 11, Dx: E11.9 Directions: BID, [facility], Supply, 166, cm, 05/10/21 8:27:00 EST, Height/Length Dosing, 92.8, kg, 05/10/21 8:27:00 EST, Weight Dosing Start: 05-10-2021 Test strips, See Instructions, 100 EA, 11, Dx: E11.9 Directions: BID, [facility] #[id number], Supply, 165, cm, 06/11/22 9:10:00 EDT, Height/Length Dosing, 97.6, kg, 06/11/22 9:10:00 EDT, Weight Dosing Start: 06-13-2022 Lancets, See Instructions, 100 EA, 11, Dx: E11.9 Directions: BID, [facility], Supply, 166, cm, 05/10/21 8:27:00 EST, Height/Length Dosing, 92.8, kg, 05/10/21 8:27:00 EST, Weight Dosing Start: 05-10-2021 Test strips, See Instructions, 100 EA, 11, Dx: E11.9 Directions: BID, [facility] #[id number], Supply, 165, cm, 06/11/22 9:10:00 EDT, Height/Length Dosing, 97.6, kg, 06/11/22 9:10:00 EDT, Weight Dosing Start: 06-13-2022 Lancets, See Instructions, 100 EA, 11, Dx: E11.9 Directions: BID, [facility], Supply, 166, cm, 05/10/21 8:27:00 EST, Height/Length Dosing, 92.8, kg, 05/10/21 8:27:00 EST, Weight Dosing Start: 05-10-2021 Test strips, See Instructions, 100 EA, 11, Dx: E11.9 Directions: BID, [facility] #[id number], Supply, 165, cm, 06/11/22 9:10:00 EDT, Height/Length Dosing, 97.6, kg, 06/11/22 9:10:00 EDT, Weight Dosing Start: 06-13-2022 Lancets, See Instructions, 100 EA, 11, Dx: E11.9 Directions: BID, [facility], Supply, 166, cm, 05/10/21 8:27:00 EST, Height/Length Dosing, 92.8, kg, 05/10/21 8:27:00 EST, Weight Dosing Start: 05-10-2021 Test strips, See Instructions, 100 EA, 11, Dx: E11.9 Directions: BID, [facility] #[id number], Supply, 165, cm, 06/11/22 9:10:00 EDT, Height/Length Dosing, 97.6, kg, 06/11/22 9:10:00 EDT, Weight Dosing Start: 06-13-2022 Lancets, See Instructions, 100 EA, 11, Dx: E11.9 Directions: BID, [facility], Supply, 166, cm, 05/10/21 8:27:00 EST, Height/Length Dosing, 92.8, kg, 05/10/21 8:27:00 EST, Weight Dosing Start: 05-10-2021 Test strips, See Instructions, 100 EA, 11, Dx: E11.9 Directions: BID, [facility] #[id number], Supply, 165, cm, 06/11/22 9:10:00 EDT, Height/Length Dosing, 97.6, kg, 06/11/22 9:10:00 EDT, Weight Dosing Start: 06-13-2022 Lancets, See Instructions, 100 EA, 11, Dx: E11.9 Directions: BID, [facility], Supply, 166, cm, 05/10/21 8:27:00 EST, Height/Length Dosing, 92.8, kg, 05/10/21 8:27:00 EST, Weight Dosing Start: 05-10-2021 Test strips, See Instructions, 100 EA, 11, Dx: E11.9 Directions: BID, [facility] #[id number], Supply, 165, cm, 06/11/22 9:10:00 EDT, Height/Length Dosing, 97.6, kg, 06/11/22 9:10:00 EDT, Weight Dosing Start: 06-13-2022 Lancets, See Instructions, 100 EA, 11, Dx: E11.9 Directions: BID, [facility], Supply, 166, cm, 05/10/21 8:27:00 EST, Height/Length Dosing, 92.8, kg, 05/10/21 8:27:00 EST, Weight Dosing Start: 05-10-2021 Test strips, See Instructions, 100 EA, 11, Dx: E11.9 Directions: BID, [facility] #[id number], Supply, 165, cm, 06/11/22 9:10:00 EDT, Height/Length Dosing, 97.6, kg, 06/11/22 9:10:00 EDT, Weight Dosing Start: 06-13-2022 Lancets, See Instructions, 100 EA, 11, Dx: E11.9 Directions: BID, [facility], Supply, 166, cm, 05/10/21 8:27:00 EST, Height/Length Dosing, 92.8, kg, 05/10/21 8:27:00 EST, Weight Dosing Start: 05-10-2021 Test strips, See Instructions, 100 EA, 11, Dx: E11.9 Directions: BID, [facility] #[id number], Supply, 165, cm, 06/11/22 9:10:00 EDT, Height/Length Dosing, 97.6, kg, 06/11/22 9:10:00 EDT, Weight Dosing Start: 06-13-2022 Lancets, See Instructions, 100 EA, 11, Dx: E11.9 Directions: BID, [facility], Supply, 166, cm, 05/10/21 8:27:00 EST, Height/Length Dosing, 92.8, kg, 05/10/21 8:27:00 EST, Weight Dosing Start: 05-10-2021 Test strips, See Instructions, 100 EA, 11, Dx: E11.9 Directions: BID, [facility] #[id number], Supply, 165, cm, 06/11/22 9:10:00 EDT, Height/Length Dosing, 97.6, kg, 06/11/22 9:10:00 EDT, Weight Dosing Start: 06-13-2022 Lancets, See Instructions, 100 EA, 11, Dx: E11.9 Directions: BID, [facility], Supply, 166, cm, 05/10/21 8:27:00 EST, Height/Length Dosing, 92.8, kg, 05/10/21 8:27:00 EST, Weight Dosing Start: 05-10-2021 Test strips, See Instructions, 100 EA, 11, Dx: E11.9 Directions: BID, [facility][id number], Supply, 165, cm, 06/11/22 9:10:00 EDT, Height/Length Dosing, 97.6, kg, 06/11/22 9:10:00 EDT, Weight Dosing Start: 06-13-2022 Lancets, See Instructions, 100 EA, 11, Dx: E11.9 Directions: BID, [facility], Supply, 166, cm, 05/10/21 8:27:00 EST, Height/Length Dosing, 92.8, kg, 05/10/21 8:27:00 EST, Weight Dosing Start: 05-10-2021 Test strips, See Instructions, 100 EA, 11, Dx: E11.9 Directions: BID, [facility] #[id number], Supply, 165, cm, 06/11/22 9:10:00 EDT, Height/Length [...] 11, Dx: E11.9 Directions: BID, [facility] #[id number], Supply, 165, cm, 06/11/22 9:10:00 EDT, Height/Length Dosing, 97.6, kg, 06/11/22 9:10:00 EDT, Weight Dosing Start: 06-13-2022 Lancets, See Instructions, 100 EA, 11, Dx: E11.9 Directions: BID, [facility], Supply, 166, cm, 05/10/21 8:27:00 EST, Height/Length Dosing, 92.8, kg, 05/10/21 8:27:00 EST, Weight Dosing Start: 05-10-2021 Test strips, See Instructions, 100 EA, 11, Dx: E11.9 Directions: BID, [facility][id number], Supply, 165, cm, 06/11/22 9:10:00 EDT, Height/Length Dosing, 97.6, kg, 06/11/22 9:10:00 EDT, Weight Dosing Start: 06-13-2022 Lancets, See Instructions, 100 EA, 11, Dx: E11.9 Directions: BID, [facility], Supply, 166, cm, 05/10/21 8:27:00 EST, Height/Length Dosing, 92.8, kg, 05/10/21 8:27:00 EST, Weight Dosing Start: 05-10-2021 Test strips, See Instructions, 100 EA, 11, Dx: E11.9 Directions: BID, [facility] #[id number], Supply, 165, cm, 06/11/22 9:10:00 EDT, Height/Length Dosing, 97.6, kg, 06/11/22 9:10:00 EDT, Weight Dosing Start: 06-13-2022 Lancets, See Instructions, 100 EA, 11, Dx: E11.9 Directions: BID, [facility], Supply, 166, cm, 05/10/21 8:27:00 EST, Height/Length Dosing, 92.8, kg, 05/10/21 8:27:00 EST, Weight Dosing Start: 05-10-2021 Test strips, See Instructions, 100 EA, 11, Dx: E11.9 Directions: BID, [facility] #[id number], Supply, 165, cm, 06/11/22 9:10:00 EDT, Height/Length Dosing, 97.6, kg, 06/11/22 9:10:00 EDT, Weight Dosing Start: 06-13-2022 Lancets, See Instructions, 100 EA, 11, Dx: E11.9 Directions: BID, [facility], Supply, 166, cm, 05/10/21 8:27:00 EST, Height/Length Dosing, 92.8, kg, 05/10/21 8:27:00 EST, Weight Dosing Start: 05-10-2021 Test strips, See Instructions, 100 EA, 11, Dx: E11.9 Directions: BID, [facility] #[id number], Supply, 165, cm, 06/11/22 9:10:00 EDT, Height/Length [...] 11, Dx: E11.9 Directions: BID, [facility] #[id number], Supply, 165, cm, 06/11/22 9:10:00 EDT, Height/Length Dosing, 97.6, kg, 06/11/22 9:10:00 EDT, Weight Dosing Start: 06-13-2022 Immunizations Immunization Date Immunization Notes Care Provider Fa [facility] 12-18-2021 Fluad Quadrivalent 0 .5 ML Intramuscular Prefilled Syringe Christopher Wells Work Phone: [facility] 600 DO Work Phone: 12-18-2021 influenza virus vaccine, unspecified formulation Christopher WELLS [facility] 12-18-2021 Pfizer COVID-19 Vac Bivalent 30 MCG/0.3ML Intramuscular Suspension Christopher Wells Work Phone: [facility] 600 DO Work Phone: 12-18-2021 SARS-CoV-2 (COVID-19 ) mRNA BNT-162b2 vax Christopher WELLS [facility] 03-26-2021 Fluzone High-Dose Quadrivalent 0.7 ML Intramuscular Suspension Prefilled Syringe Christopher Wells Work Phone: [facility] 250 DO Work Phone: 03-26-2021 influenza virus vaccine, unspecified formulation Christopher WELLS [facility] 03-26-2021 [employer] COVID-19 Vacc 30 MCG/0.3ML Intramuscular Suspension Christopher Wells Work Phone: [place] [address] DO Work Phone: 05-19-2020 Luca COVID-19 Vaccine 0.5 ML Intramuscular Suspension Christopher Wells Work Phone: [place] [address] DO Work Phone: 05-18-2020 COVID-19 vaccine, vector-nr, [id number], PF, 0.5 mL; Translations: [Luca COVID-19 Vaccine] Christopher WELLS [facility] Comment on above: Reason for Medicatio n: Prophylaxis Reason for Medicatio n: Prophylaxis 02-23-2020 zoster vaccine recombinant Christopher Wells Work Phone: [place] [address] DO Work Phone: 01-05-2020 Fluad Quadrivalent 0 .5 ML Intramuscular Prefilled Syringe Christopher Wells Work Phone: [place] [address] DO Work Phone: 01-05-2020 influenza virus vaccine, unspecified formulation Christopher WELLS [facility] 12-28-2019 influenza, high dose seasonal, preservative-free Christopher Wells Work Phone: [facility] 250 DO Work Phone: 12-15-2019 influenza virus vaccine, unspecified formulation Christopher WELLS [facility] 11-15-2019 zoster vaccine recombinant Christopher Wells Work Phone: [facility] 250 DO Work Phone: 11-15-2019 zoster vaccine, live Christopher MARTI [facility] 12-20-2018 influenza, high dose seasonal, preservative-free Christopher LIBAN [facility] 12-14-2018 influenza virus vaccine, unspecified formulation Christopher LIBAN [facility] 12-14-2018 influenza, high dose seasonal, preservative-free Christopher Wells Work Phone: [facility] 250 DO Work Phone: 12-14-2018 pneumococcal polysaccharide vaccine, 23 valent Christopher Wells Work Phone: [facility] 250 DO Work Phone: 02-16-2018 influenza virus vaccine, unspecified formulation Christopher BAJANNA [facility] 02-16-2018 Influenza, injectabl e, Madin [place] [facility], preservative free, quadrivalent Christopher Wells Work Phone: [facility] 250 DO Work Phone: 02-16-2018 pneumococcal conjuga te vaccine, 13 valent Christopher Wells Work Phone: [facility] 250 DO Work Phone: 11-14-2017 influenza virus vaccine, unspecified formulation Christopher Wells Work Phone: [facility] 250 DO Work Phone: 11-27-2016 influenza virus vaccine, unspecified formulation Christopher WELLS [facility] 11-27-2016 influenza, high dose seasonal, preservative-free Christopher Wells [facility]: [facility] Work Phone: 01-21-2016 influenza virus vaccine, unspecified formulation Christopher WELLS [facility] 01-21-2016 influenza, high dose seasonal, preservative-free Christopher Wells Work Phone: [facility] DO Work Phone: 05-09-2015 tetanus toxoid, redu louise diphtheria toxoid, and acellular pertussis vaccine, adsorbed Christopher Wells Work Phone: [facility] DO Work Phone: 02-26-2009 novel [id number], preservative-free, injectable Christopher Wells Work Phone: [facility] Work Phone: NEGATED: Highlighted row has not occurred!02-27-2023 influenza virus vaccine, unspecified formulation Linda Solorio [facility] NEGATED: Highlighted row has not occurred!12-18-2022 influenza virus vaccine, unspecified formulation Catrachito Wolf [facility] Medications Current Medications Medication Drug Class(es) Dates [...] Albuterol (Eqv-ProAir HFA) 90 mcg/inh inhalation aerosol (2 sources) Start: 04-10-2023 take 2 puff(s) by inhalation every six hours Albuterol (Eqv-ProAir HFA) 90 mcg/inh inhalation aerosol 2 puff(s), Inhalation, q6hr Wheezing, 8.5 gm, Refill(s) 0, [facility][id number], 165, cm, 04/10/23 9:26:00 EST, Height/Length Dosing, 96.9, kg, 04/10/23 9:26:00 EST, Weight Dosing Start Date: 04/10/23 Status: Ordered amLODIPine 5 mg oral tablet (20 sources) Dihydropyridine Calcium Channel Larisa Start: 05-08-2021 End: 08-26-2024 take 1 tablet by mouth once daily amLODIPine (Norvasc) 5 mg tablet Indications: Essential hypertension Take 1 tablet (5 mg) by mouth once daily. 90 tablet 3 08/27/2023 08/26/2024 Active amLODIPine Besyl ate Active Aspir-81 81 MG [...] mg) by mouth 2 times a week. Active take 1 tablet by mouth once tangela y Aspirin 81 MG Oral Tablet Delayed Release TAKE 1 TABLET DAILY. Quantity: 90 Refills: 3 Ordered: 30-Jul-2022 Fariha Guidry MD Active atorvastatin 40 mg oral tablet (20 sources) HMG-CoA Reductase Inhibitor Start: 01-05-2023 End: 08-26-2024 take 1 tablet by mouth once daily atorvastatin (Lipitor) 40 mg tablet Indications: Atherosclerosis of viejas coronary artery of viejas heart without angina pectoris , Hyperlipidemia, unspecified hyperlipidemia type Take 1 tablet (40 mg) by mouth once daily. 90 tablet 3 08/27/2023 08/26/2024 Active Start: 10-28-2021 End: 10-23-2022 take 1 tablet by mouth once daily atorvastatin 40 mg Tab 40 mg = 1 tab(s), Oral, Daily, X 90 day(s), # 90 tab(s), Refills(s) 3, [facility]acy: [facility] #[id number], 166, cm, 10/28/21 9:59:00 EDT, Height/Length Dosing, 97.4, kg, 10/28/21 9:59:00 EDT, Weight Dosing Start Date: 10/28/21 Stop Date: 10/23/22 Status: Ordered Start: 04-26-2015 End: 08-27-2023 take 20 mg by mouth once daily [...] 6 tab(s), Refills(s) 0, [facility]: [facility] #[id number], 165, cm, 04/10/23 9:26:00 EST, Height/Length Dosing, 96.9, kg, 04/10/23 9:26:00 EST, Weight Dosing Start Date: 04/10/23 Stop Date: 04/15/23 Status: Ordered Calcium Carbonate (3 sources) oscal 500 + D Ac tive calcium carbonate 1250 mg / cholecalciferol 0.01 mg oral tablet (14 sources) Vitamin D Start: 01-06-2023 take 1 tablet by mouth once daily calcium (as carbonate)-vitamin D 500 mg-400 intl units oral tablet 1 tab(s), Oral, Daily, Refill(s) 0 Start Date: 01/06/23 Status: Ordered chlorthalidone 25 mg oral tablet (20 sources) Thiazide-like Diuretic Start: 07-28-2023 take 1 tablet by mouth at bedtime chlorthalidone 25 mg Tab 25 mg = 1 tab(s), Oral, Bedtime, # 90 tab(s), Refills(s) 3, Pharmacy: [facility] #[id number], 165, cm, 07/28/23 8:01:00 EDT, Height/Length Dosing, 100.4, kg, 07/28/23 8:01:00 EDT, Weight Dosing Start Date: 07/28/23 Status: Ordered Start: 08-06-2018 take 25 mg by mouth once daily in the evening Chlorthalidone Active 25 MG PO Every evening August 06, 2018 12:00am cilostazol 50 mg oral tablet (10 sources) Phosphodiesterase 3 Inhibitor Start: 10-08-2021 take 1 tablet by mouth twice daily Pletal 50 mg oral tablet 50 mg = 1 tab(s), Oral, BID, # 60 tab(s), Refills(s) 5, Pharmacy: [facility] #[id number], 165, cm, 09/24/21 8:39:00 EDT, Height/Length Dosing, [...] 20 cap(s), Refills(s) 1, [facility]acy: [facility] #[id number], 165, cm, 12/18/22 8:28:00 EDT, Height/Length Dosing, [...] pen injector (20 sources) Insulin Analog Start: 07-28-2023 inject 50 [IU] by subcutaneous injection twice daily Tresiba FlexTouch 100 units/mL subcutaneous solution 50 unit(s), SubCutaneous, BID, Dx E11.65, # 5 EA, Refills(s) 11, [facility]acy: [facility] #[id number], 165, cm, 07/28/23 8:01:00 EDT, Height/Length Dosing, 100.4, kg, 07/28/23 8:01:00 EDT, Weight Dosing Start Date: 07/28/23 Status: Ordered Start: 08-22-2022 inject 50 [IU] by griffin bcutaneous injection once daily Tresiba FlexTouch 100 units/mL subcutaneous solution 50 unit(s), SubCutaneous, Daily, Dx E11.65, # 5 EA, Refills(s) 11, [facility]: [facility] #[id number], 165, cm, 06/11/22 9:10:00 EDT, Height/Length Dosing, 97.6, kg, 06/11/22 9:10:00 EDT, Weight Dosing Start Date: 08/22/22 Status: Ordered Start: 08-22-2022 inject 30 [IU] by griffin bcutaneous injection twice daily Tresiba FlexTouch 100 units/mL subcutaneous solution 30 unit(s), SubCutaneous, BID, Dx E11.65, # 5 EA, Refills(s) 11, Pharmacy: [facility] #[id number], 165, cm, 06/11/22 9:10:00 EDT, Height/Length Dosing, 97.6, kg, 06/11/22 9:10:00 EDT, Weight Dosing Start Date: 08/22/22 Status: Ordered Start: 09-24-2021 inject 30 [IU] by griffin bcutaneous injection twice daily Tresiba FlexTouch 100 units/mL subcutaneous solution 30 unit(s), SubCutaneous, BID, Dx E11.65, # 5 EA, Refills(s) 11, Pharmacy: [facility], 165, cm, 09/24/21 8:39:00 EDT, Height/Length Dosing, 95.3, kg, 09/24/21 8:39:00 EDT, Weight Dosing Start Date: 09/24/21 Status: Ordered Start: 05-10-2021 inject 50 [IU] by griffin bcutaneous injection at bedtime Tresiba FlexTouch 100 units/mL subcutaneous solution 50 unit(s), SubCutaneous, Bedtime, Dx E11.65, # 5 EA, Refills(s) 11, Pharmacy: [facility], 166, cm, 05/10/21 8:27:00 EST, Height/Length [...] Start Date: 01/05/23 Status: Ordered Lyumjev KwikPen U-100 Insulin 100 unit/mL insulin pen Inject under the skin. Active Lyumjev KwikPen 100 UNIT/ML inject 10-12-15 units subcutaneously ACCORDING TO MEAL SIZE PLUS ... (REFER TO PRESCRIPTION NOTES). Subcutaneous for 75 Days Active Lyumjev KwikPen 100 UNIT/ML Subcutaneous Solution [...] mg = 1 tab(s), Oral, BID, # 180 tab(s), Refills(s) 3, Pharmacy: [facility] #[id number], 165, cm, 07/28/23 8:01:00 EDT, Height/Length Dosing, 100.4, kg, 07/28/23 8:01:00 EDT, Weight Dosing Start Date: 07/28/23 Status: Ordered Loli Veliz (5 sources) Start: 05-05-2022 Terezajoyce MeyersBryant n Refills(s) 0 Start Date: 05/05/22 Status: Ordered 24 hr metoprolol succinate 50 mg extended release oral tablet (20 sources) beta-Adrenergic Larisa Start: 07-15-2023 take 1 tablet by mouth once daily metoprolol succinate XL (Toprol-XL) 50 mg 24 hr tablet Indications: Essential hypertension take 1 tablet by mouth once daily 90 tablet 3 07/15/2023 Active Start: 04-07-2022 Metoprolol Suc cinate Active MG PO April 07, 2022 1:00am Start: 01-13-2020 take 1 mg by mouth once daily Metoprolol succinate 50 mg ER Tablet mg, Oral, Daily, Refills(s) 0 Start Date: 01/13/20 Status: Ordered Start: 01-13-2020 take 50 mg by mouth once daily Metoprolol Succinate Active 50 MG PO Daily April 07, 2022 1:00am Metoprolol Succi pina Active Multi Vitamins oral [...] 1:00am Start: 02-18-2023 take 1 tablet by damon th once daily Multivitamin Active 1 TAB PO Daily February 18, 2023 12:00am Multivitamin Act kana multivitamin tablet (2 sources) take 1 tablet by dmaon th once daily multivitamin tablet Take 1 tablet by mouth once daily. Active take 1 tablet by mouth once tangela y multivitamin tablet Take 1 tablet by mouth once daily. 0 Active nitroglycerin 0.4 mg sublingual tablet (20 sources) Nitrate Vasodilator Start: 04-11-2017 nitroglyce rin (Nitrostat) 0.[address] 1 tablet (0.4 mg) under the tongue every 5 minutes if needed. 11/09/2022 Active Nitrostat 0.4 MG Sublingual Active polyethylene glycol 3350 395490 mg / potassium chloride 1480 mg / sodium bicarbonate 5720 mg / sodium chloride 88560 mg powder for oral solution (1 source) Osmotic Laxative Start: 05-05-2022 NuLYTELY Flannery oral powder for reconstitution See Instructions, 1 EA, Refill(s) 0, Prior to colonoscopy., [facility] #[id number], 165, cm, 05/05/22 13:40:00 EST, Height/Length Dosing, 95.2, kg, 05/05/22 13:40:00 EST, Weight Dosing Start Date: 05/05/22 Status: Ordered Potassimin (9 sources) Potassimin Activ e predniSONE 20 mg oral tablet (1 source) Start: 04-10-2023 End: 04-17-2023 take 3 tablets by mouth once daily predniSONE 20 mg Tab 60 mg = 3 tab(s), Oral, Daily, X 7 day(s), # 21 tab(s), Refills(s) 0, Pharmacy: [facility] #[id number], 165, cm, 04/10/23 9:26:00 EST, Height/Length Dosing, 96.9, kg, 04/10/23 9:26:00 EST, Weight Dosing Start Date: 04/10/23 Stop Date: 04/17/23 Status: Ordered Psyllium (17 sources) Start: 11-06-2022 Metamucil Oral , Refills(s) [...] Inhibitor Start: 05-08-2021 End: 01-09-2024 take 1 tablet by mouth once daily Xarelto 10 mg tablet Indications: Chronic deep vein thrombosis (DVT) of distal vein of left lower extremity (Multi) Take 1 tablet (10 mg) by mouth once daily. 90 tablet 3 01/09/2023 08/27/2023 Discontinued (Other) Start: 08-06-2018 take 10 mg by mouth once daily Rivaroxaban Active 10 MG PO Every evening August 06, 2018 12:00am Has been instructed by [facility] to stop 2 days before heart cath Start: 08-06-2018 take 20 mg by mouth once daily Rivaroxaban Active 20 MG PO Every evening August 06, 2018 12:00am Has been instructed by [facility] to stop 2 days before heart cath Xarelto 10 10mg PO Active Tylenol 8 HR Arthritis Pain (14 sources) Start: 01-06-2023 take 650 mg by mouth every eight hours as needed for pain Tylenol 8 HR Arthritis Pain 650 mg, Oral, q8hr, PRN as needed for pain, Refills(s) 0 Start Date: 01/06/23 Status: Ordered ubidecarenone 100 mg oral capsule (16 sources) Start: 01-19-2023 take 1 capsule by mouth twice daily coenzyme Q-10 100 mg capsule Indications: Mixed hyperlipidemia , Atherosclerosis of viejas coronary artery of viejas heart without angina pectoris TAKE 1 CAPSULE BY MOUTH TWICE A DAY 180 capsule 3 01/19/2023 Active Start: 04-07-2022 End: 02-18-2023 Coenzyme Q10 Discontinued PO Daily April 07, 2022 1:00am February 18, 2023 10:26am Start: 11-12-2021 take 1 capsule by mo uth twice daily CoQ10 100 MG Oral Capsule [...] 06, 2018 12:00am April 07, 2022 2:59pm potassium chloride 10 meq extended release oral capsule (20 sources) Start: 04-17-2021 take 1 capsule by mouth once daily potassium chloride 10 mEq Cap-ER 10 mEq = 1 cap(s), Oral, Daily, # 90 cap(s), Refills(s) 3, [facility]acy: [facility] #[id number], 165, cm, 07/28/23 8:01:00 EDT, Height/Length Dosing, 100.4, kg, 07/28/23 8:01:00 EDT, Weight Dosing Start Date: 07/28/23 Status: Ordered Start: 04-17-2021 take 1 capsule by mo uth once daily potassium chloride 10 mEq Cap-ER [...] DO Active SITagliptin 100 mg oral tablet (5 sources) [...] 90 Refills: 3 Ordered: 30-Jul-2022 DO Active Payers Date Payer Category Payer Self-pay [id number] 2022 Unknown [id number] 2018 Unknown 2018 Unknown [id number] 2014 Medicare MEDICARE MEDICAR E PART A AND B [id number] 2014-Present [address] [place] [address] [id number]. [id number] 2014 Medicare [id number] 1949 Unknown [id number] 2.16.840.1.694451.3.579.2.356 1949 Unknown [id number] 2.16.840.1.214819.3.579.2.356 1949 Unknown [id number] 2.16.840.1.743977.3.579.2.356 1949 Unknown [id number] 2.16.840.1.736414.3.579.2.1068 1949 Unknown [id number] 2.16.840.1.648647.3.579.2.1259 1949 Unknown [id number] 2.16.840.1.707322.3.579.2.1259 1949 Unknown [id number] 2.16.840.1.406096.3.579.2.1259 1949 Unknown [id number] 2.16.840.1.799356.3.579.2.1259 1949 Unknown [id number] 2.16.840.1.366437.3.579.2.727 1949 Unknown [id number] 2.16.840.1.222956.3.579.2.727 1949 Unknown [id number] 2.16.840.1.964516.3.579.2.727 1949 Unknown [id number] 2.16.840.1.503633.3.579.2.727 1949 Unknown [id number] 2.16.840.1.460444.3.579.2.727 1949 Unknown [id number] 2.16.840.1.641583.3.579.2.727 1949 Unknown [id number] 2.16.840.1.248505.3.579.2.727 1949 Unknown [id number] 2.16.840.1.301515.3.579.2.727 1950 Unknown [id number] 2.16.840.1.909186.3.579.2 1949 Unknown [id number] 2.16.840.1.263265.3.579.2 1949 Unknown [id number] 2.16.840.1.161922.3.579.2 1949 Unknown [id number] 2.16.840.1.998055.3.579.2 1949 Unknown [id number] 2.16.840.1.079208.3.579.2 1949 Unknown [id number] 2.16.840.1.944554.3.579.2 1949 Unknown [id number] 2.16.840.1.219610.3.579.2 1949 Unknown [id number] 2.16.840.1.945974.3.579.2 1949 Unknown [id number] 2.16.840.1.565201.3.579.2 1949 Unknown [id number] 2.16.840.1.415741.3.579.2 1949 Unknown [id number] 2.16.840.1.430175.3.579.2 1949 Unknown [id number] 2.16.840.1.881413.3.579.2 1949 Unknown [id number] 2.16.840.1.194033.3.579.2 1949 Unknown [id number] 2.16.840.1.187478.3.579.2 1949 Unknown [id number] 2.16.840.1.294699.3.579.2 1949 Unknown [id number] 2.16.840.1.821186.3.579.2.727 1949 Unknown [id number] 2.16.840.1.932334.3.579.2.727 1949 Unknown [id number] 2.16.840.1.519584.3.579.2.727 1949 Unknown [id number] 2.16.840.1.049916.3.579.2.727 1949 Unknown [id number] 2.16.840.1.152362.3.579.2.727 1949 Unknown [id number] 2.16.840.1.296292.3.579.2.727 1949 Unknown [id number] 2.16.840.1.837442.3.579.2.1244 1949 Unknown [id number] 2.16.840.1.215677.3.579.2.1244 Unknown [id number] 2.16.840.1.571926.3.579.2.531 Unknown [id number] 2.16.840.1.559898.3.579.2.531 Unknown [id number] 2.16.840.1.622820.3.579.2.531 Unknown [id number] 2.16.840.1.839694.3.579.2.531 Unknown [id number] 2.16.840.1.295341.3.579.2.531 Plan of Treatment Date Care Activity Detail Author Start: 05-21-2032 Screening for malignant neoplasm of colon [facility] Start: 05-09-2025 DTaP/Tdap/Td Vaccines (2 - Td or Tdap) DTaP/Tdap/Td Vaccines (2 - Td or Tdap) [facility] Start: 04-08-2024 End: 04-08-2024 Patient encounter procedure 04/08/2024 10:00 AM EST Office Visit [address] [place] [id number] Fariha Guidry MD [address] [facility] [address] [place] [address] [facility] Start: 11-27-2023 End: 08-26-2024 Alanine aminotransferase [Enzymatic activity/volume] in Serum or Plasma by With P-5'-P Alanine Aminotransferase Lab Routine Atherosclerosis of viejas coronary artery of viejas heart without angina pectoris Hyperlipidemia, unspecified hyperlipidemia type Expected: 11/27/2023 (Approximate), Expires: 08/26/2024 [facility] Work Phone: Comment on above: Expected: 11/27/2023 (Approximate), Expi res: 08/26/2024 Start: 11-27-2023 End: 08-26-2024 Aspartate aminotransferase [Enzymatic activity/volume] in Serum or Plasma by With P-5'-P Aspartate Aminotransferase Lab Routine Atherosclerosis of viejas coronary artery of viejas heart without angina pectoris Hyperlipidemia, unspecified hyperlipidemia type Expected: 11/27/2023 (Approximate), Expires: 08/26/2024 [facility] Work Phone: Comment on above: Expected: 11/27/2023 (Approximate), Expi res: 08/26/2024 Start: 11-27-2023 End: 08-26-2024 Lipid 1996 panel - Serum or Plasma Lipid Panel Lab Routine Atherosclerosis of viejas coronary artery of viejas heart without angina pectoris Hyperlipidemia, unspecified hyperlipidemia type Expected: 11/27/2023 (Approximate), Expires: 08/26/2024 [facility] Service Area Work Phone: Comment on above: Expected: 11/27/2023 (Approximate), Expi res: 08/26/2024 Start: 11-15-2023 Influenza vaccination Influenza Vaccine (Season Ended) [facility] Start: 02-18-2023 US Lower extremity veins - bilateral [facility] Start: 02-18-2023 US scan venography of lower limbs US venous mapping BI [facility] Start: 02-18-2023 [facility] Start: 02-12-2023 End: 02-13-2024 Alanine aminotransferase [Enzymatic activity/volume] in Serum or Plasma by With P-5'-P Alanine Aminotransferase Lab Routine Atherosclerosis of viejas coronary artery of viejas heart without angina pectoris Hyperlipidemia, unspecified hyperlipidemia type Expected: 02/12/2023 (Approximate), Expires: 02/13/2024 [facility] Service Area Work Phone: Comment on above: Expected: 02/12/2023 (Approximate), Expi res: 02/13/2024 Start: 02-12-2023 End: 02-13-2024 Aspartate aminotransferase [Enzymatic activity/volume] in Serum or Plasma by With P-5'-P Aspartate Aminotransferase Lab Routine Atherosclerosis of viejas coronary artery of viejas heart without angina pectoris Hyperlipidemia, unspecified hyperlipidemia type Expected: 02/12/2023 (Approximate), Expires: 02/13/2024 [facility] Work Phone: Comment on above: Expected: 02/12/2023 (Approximate), Expi res: 02/13/2024 Start: 02-12-2023 End: 02-13-2024 Lipid 1996 panel - Serum or Plasma Lipid Panel Lab Routine Atherosclerosis of viejas coronary artery of viejas heart without angina pectoris Hyperlipidemia, unspecified hyperlipidemia type Expected: 02/12/2023 (Approximate), Expires: 02/13/2024 [facility] Work Phone: Comment on above: Expected: 02/12/2023 (Approximate), Expi res: 02/13/2024 Start: 02-12-2023 FUV, Provider: Fariha Guidry, Status: Pen, Time: 9:00 AM FUV, Provider: Fariha Guidry, Status: Pen, Time: 9:00 AM [facility] 250 DO Work Phone: Start: 11-14-2022 COVID-19 Vaccine ( season) COVID-19 Vaccine ( season) [facility] Start: 11-14-2022 Influenza vaccination Influenza Vaccine (#1) [facility] Start: 07-30-2022 FUV, Provider: Fariha Guidry, Status: Pen, Time: 8:40 AM FUV, Provider: Fariha Guidry, Status: Pen, Time: 8:40 AM [facility] 600 DO Work Phone: Start: 04-07-2022 [facility] Start: 02-12-2022 COVID-19 Vaccine (4 - Booster for Luca series) COVID-19 Vaccine (4 - Booster for Luca series) [facility] Start: 01-15-2022 FUV, Provider: Fariha Guidry, Status: Pen, Time: 10:10 AM FUV, Provider: Fariha Guidry, Status: Pen, Time: 10:10 AM [facility] 250 DO Work Phone: Start: 05-28-2021 NURSEVST, Provider: CITLALLI RASHID SLIDE FORMING MACHINE TENDER 1,[id number], Status: Pen, Time: 11:45 AM NURSEVST, Provider: CITLALLI RASHID SLIDE FORMING MACHINE TENDER 1,[id number], Status: Pen, Time: 11:45 AM [facility] 250 DO Work Phone: Start: 2009 RSV patients and/or patients aged 60+ years (1 - 1-dose 60+ series) RSV patients and/or patients aged 60+ years (1 - 1-dose 60+ series) [facility] Start: 1989 Screening for malignant neoplasm of breast Mammogram [facility] Start: 1968 Urine screening for protein CKD: Urine Protein Screening [facility] Start: 06-25-1967 Diabetes mellitus screening Diabetes Screening [facility] Start: 06-25-1967 Hepatitis C screening Hepatitis C Screening [facility] Start: 1949 Lipid panel Lipid Panel [facility] Start: 1949 Medicare Annual Wellness Visit Medicare Annual Wellness Visit (AWV) [facility] Start: 1949 Screening for malignant neoplasm of colon [facility] Start: 1949 Screening for osteoporosis Bone Density Scan [facility] Ankle brachial press ure index [facility] Patient Education [facility] Work Phone: Patient referral [facility] Work Phone: Problems Active Problems Problem Classification Problem Date Documented Date Episodic/Chronic Administrative/social admission (1 source) Counseling procedure with explicit context; Translations: [Dietary counseling and surveillance] Episodic Chronic kidney disease (20 sources) Chronic kidney disease stage 3; Translations: [Chronic kidney disease, Stage III (moderate)] Onset: 09-25-19 22 07-12-2020 Chronic Chronic kidney disease (4 sources) Chronic kidney disease; Translations: [Chronic kidney disease, stage 3 unspecified (Multi)] Onset: 01-10-20 23 Chronic obstructive pulmonary disease and bronchiectasis (1 source) Bronchitis; Translations: [Bronchitis, not specified as acute or chronic] Onset: 04-10-19 Episodic Chronic ulcer of skin (1 source) [...] sources) Coronary atherosclerosis; Translations: [Coronary atherosclerosis of viejas coronary artery] Onset: 09-18-19 23 09-11-2020 Chronic Coronary atherosclerosis and other heart disease (3 sources) Coronary atherosclerosis and other heart disease; Translations: [Atherosclerosis of viejas arteries of left leg with ulceration of calf] Onset: 11-04-19 Diabetes mellitus with complications (5 sources) Type 2 diabetes mellitus with mild [...] Essential hypertension; Translations: [Unspecified essential hypertension] Onset: 01-10-2002-28-2011 Chronic Gangrene (1 source) 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 added per outpatient CDI policy. Immunizations and screening for infectious disease (1 source) Viral screening status; Translations: [Encounter for screening for other viral diseases] Onset: 01-27-20 Episodic Joint disorders and dislocations; trauma-related (17 sources) Acetabular labrum tear 11-06-2022 Chronic Menopausal disorders (17 sources) Primary ovarian failure 11-06-2022 Chronic Osteoarthritis (17 sources) Osteoarthritis of hip 11-06-2022 Chronic Other aftercare (12 sources) Drug therapy finding; Translations: [Long-term (current) use of other medications] Episodic Other aftercare (1 source) Other terminologist (current) drug therapy; Translations: [Other longterm (current) drug therapy] Onset: 09-18-19 Episodic Other aftercare (1 source) Long-term current use of drug therapy; Translations: [Other terminologist (current) drug therapy] Onset: 01-27-20 Episodic Other aftercare (1 source) Long-term current use of anticoagulant; Translations: [retirement (current) use of anticoagulants] Onset: 01-27-20 Episodic Other aftercare (2 sources) Long-term current use of insulin; Translations: [retirement (current) use of insulin] Onset: 01-27-20 Episodic [...] Onset: 09-18-19 Episodic Other connective tissue disease (17 sources) Enthesopathy of hip region 11-06-2022 Episodic Other connective tissue disease (1 source) Enthesopathy of lower leg and ankle region; Translations: [Other specified enthesopathies of left lower limb, excluding foot] Onset: 03-20-19 Episodic Other diseases of veins and lymphatics (15 sources) Stasis dermatitis and venous ulcer of [...] (20 sources) Body mass index 30+ - obesity; Translations: [Body mass index (BMI) 35.0-35.9, adult] Onset: 08-27-1908-10-2020 Chronic Other nutritional; endocrine; and metabolic disorders (17 sources) Morbid obesity; Translations: [Morbid (severe) obesity due to excess calories] Onset: 03-20-1912-17-2022 Chronic Other nutritional; endocrine; and metabolic disorders (3 sources) Obese class II; Translations: [Body mass index (BMI) 37.0-37.9, adult] Onset: 01-27-20 Chronic Other nutritional; endocrine; and metabolic disorders (2 sources) Body mass index (BMI) 35.0-35.9, adult; Translations: [Body mass index (BMI) 35.0-35.9, adult] Onset: 08-27-19 Chronic Peripheral and visceral atherosclerosis (20 sources) Intermittent claudication; Translations: [Peripheral vascular disease] Onset: 10-29-1909-24-2021 Chronic Residual codes; unclassified (20 sources) Sleep apnea; Translations: [Unspecified sleep apnea] [...] (3 sources) Other specified postprocedural states Episodic Residual codes; unclassified (2 sources) Never smoked tobacco; Translations: [Other specified health status] Onset: 08-27-1908-27-2023 Episodic Residual codes; unclassified (2 sources) Other specified health status; Translations: [Other specified health status] Onset: 08-27-19 Episodic Spondylosis; intervertebral disc disorders; other back problems (15 sources) Prolapsed lumbar intervertebral disc 12-18-2022 Chronic Spondylosis; intervertebral disc disorders; other back problems (15 sources) Spinal stenosis of lumbar region 12-18-2022 Episodic Unclassified (20 sources) Non-smoker 02-24-2020 Unclassified (14 sources) Patient encounter status 11-06-2022 Unclassified (15 sources) Long-term current use of insulin 12-17-2022 Comment on above: Current Medication L ist includes Tresiba. added per outpatient CDI policy. Varicose veins of lower extremity (11 sources) Varicose ulcer of lower extremity; Translations: [Varicose veins of left lower extremity with ulcer of unspecified site] Onset: 10-29-19 Episodic Past or Other Problems Problem Classification Problem Date Documented Da te Episodic/Chronic Coronary atherosclerosis and other heart disease (18 sources) Past history of procedure; Translations: [Percutaneous transluminal coronary angioplasty status] Onset: 01-09-2023 02-12-2023 Episodic Other circulatory disease (12 sources) H/O: angina pectoris; Translations: [Personal history of other diseases of circulatory system] Resolved: 05-08-2021 Episodic Phlebitis; thrombophlebitis and thromboembolism (20 sources) Deep venous thrombosis; Translations: [Acute venous embolism and thrombosis of unspecified deep vessels of lower extremity] Onset: 01-09-2023 04-11-2017 Episodic Unclassified (12 sources) Never smoked tobacco; Translations: [Never a smoker] Unclassified (2 sources) Onset: 02-12-2023 Resolved: 08-27-2023 02-12-2023 Procedures Date Procedure Procedure Detail Performing Clinician [...] Wells Work Phone: Start: 04-15-2017 Colonoscopy Christopher Rosales Angioplasty of blood vessel Christopher Wells Work Phone: Cardiac Stents x 3 Christopher BEJARANO Cholecystectomy Christopher rosales Work Phone: Cholecystectomy Christopher WELLS Colonoscopy Christopher Wells Work Phone: Hysterectomy Christopher Montenegro Mejiajanna Work Phone: Hysterectomy Christopher MEJIAJANNA Insertion of stent i n femoral vein Christopher Wells Work Phone: Results Test Name Value Interpretation Reference Range Facil ity Ambulatory Visit Summaryon 0 07-28-2023 Ambulatory Visit Summary EVON CORCORAN :1950 Visit Date:07/28/2023 Ambulatory Visit Instructions Your Diagnosis Type 2 diabetes mellitus with hypercholesterolemia Type 2 diabetes mellitus with stage 3 chronic kidney disease HTN - Hypertension 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 Chronic renal impairment, stage 3a Familial hypercholesteremia History of DVT in adulthood BMI 36.0-36.9,adult Chronic kidney disease, stage 3 unspecified Morbid obesity Pure hypercholesterolemia, unspecified Your Care Team Attending Physician - Christopher WELLS DO, FAAFP Primary Care Physician - Christopher WELLS DO, FAAFP This Is Your Medications List chlorthalidone (chlorthalidone 25 mg Tab) insulin degludec (Tresiba FlexTouch 100 units/mL subcutaneous solution) losartan (losartan 50 mg Tab) potassium chloride (potassium chloride 10 mEq Cap-ER) Contact prescribing physician if questions or concerns Misc Prescription (Glucometer) Misc Prescription (Lancets) Misc Prescription (Test strips) acetaminophen (Tylenol 8 HR Arthritis Pain) albuterol (Albuterol (Eqv-ProAir HFA) 90 mcg/inh inhalation aerosol) amlodipine (amLODIPine 5 mg Tab) aspirin atorvastatin (atorvastatin 40 mg Tab) calcium-vitamin D (calcium (as carbonate)-vitamin D 500 mg-400 intl units oral tablet) insulin lispro (Lyumjev KwikPen 100 units/mL injectable solution) metoprolol (Metoprolol succinate 50 mg ER Tablet) multivitamin (Multi Vitamins oral tablet) nitroglycerin (NitroStat 0.4 mg Tab) psyllium (Metamucil) rivaroxaban (Xarelto 10 mg oral tablet) ubiquinone (Co Q-10) Procedures Performed Injection of hip joint using fluoroscopic guidance (03/04/2023), Colonoscopy (05/21/2022), Colonoscopy (04/15/2017), Cardiac Stents x 3, Cholecystectomy, Hysterectomy. Discharge Vitals Temperature (Oral) 36.4 ?C Heart Rate (Peripheral) 66 Blood Pressure 140/70 Height 165 cm Height 65 in Weight 100.4 kg Weight 220.88 lb BMI 36.88 What to do next Scheduled Follow-Up Appointments Thursday 8:00 AM EST Where: [facility] Normal [facility] Ambulatory Visit Summary EVON CORCORAN :1950 Visit Date:07/28/2023 Ambulatory Visit Instructions Your Diagnosis Type 2 diabetes mellitus with hypercholesterolemia Type 2 diabetes mellitus with stage 3 chronic kidney disease HTN - Hypertension 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 Chronic renal impairment, stage 3a Familial hypercholesteremia History of DVT in adulthood BMI 36.0-36.9,adult Chronic kidney disease, stage 3 unspecified Morbid obesity Pure hypercholesterolemia, unspecified Your Care Team Attending Physician - Christopher WELLS DO, FAAFP Primary Care Physician - Christopher WELLS DO, FAAFP This Is Your Medications List chlorthalidone (chlorthalidone 25 mg Tab) insulin degludec (Tresiba FlexTouch 100 units/mL subcutaneous solution) losartan (losartan 50 mg Tab) potassium chloride (potassium chloride 10 mEq Cap-ER) Contact prescribing physician if questions or concerns Misc Prescription (Glucometer) Misc Prescription (Lancets) Misc Prescription (Test strips) acetaminophen (Tylenol 8 HR Arthritis Pain) albuterol (Albuterol (Eqv-ProAir HFA) 90 mcg/inh inhalation aerosol) amlodipine (amLODIPine 5 mg Tab) aspirin atorvastatin (atorvastatin 40 mg Tab) calcium-vitamin D (calcium (as carbonate)-vitamin D 500 mg-400 intl units oral tablet) insulin lispro (Lyumjev KwikPen 100 units/mL injectable solution) metoprolol (Metoprolol succinate 50 mg ER Tablet) multivitamin (Multi Vitamins oral tablet) nitroglycerin (NitroStat 0.4 mg Tab) psyllium (Metamucil) rivaroxaban (Xarelto 10 mg oral tablet) ubiquinone (Co Q-10) Procedures Performed Injection of hip joint using fluoroscopic guidance (03/04/2023), Colonoscopy (05/21/2022), Colonoscopy (04/15/2017), Cardiac Stents x 3, Cholecystectomy, Hysterectomy. Discharge Vitals Temperature (Oral) 36.4 ?C Heart Rate (Peripheral) 66 Blood Pressure 140/70 Height 165 cm Height 65 in Weight 100.4 kg Weight 220.88 lb BMI 36.88 What to do next Scheduled Follow-Up Appointments 2023 7:40 AM EDT With: Christopher WELLS DO, FAAFP Where: [facility] Normal [address], [place] [address]- \.br\ Medications\.br\ What How Much When Instructions\.br\ Changed insulin degludec (Tresiba FlexTouch 100 units/ mL subcutaneous solution) 50 Units Subcutaneous 2 times a day Dx E11.65 \.br\ Changed losartan (losartan 50 mg Tab) 1 Tablets By Mouth 2 times a day\.br\ Unchanged chlorthalidone (chlorthalidone 25 mg Tab) 1 Tablets By Mouth At bedtime\.br\ Unchanged potassium chloride (potassium chloride 10 mEq Cap-ER) 1 Capsules By Mouth Every day\.br\ Unchanged acetaminophen (Tylenol 8 HR Arthritis Pain) 650 Milligram By Mouth Every 8 hours as needed for as needed for pain Contact prescribing physician if questions or concerns \.br\ Unchanged albuterol (Albuterol (Eqv-ProAir HFA) 90 mcg/ inh inhalation aerosol) 2 Puffs Inhalation Every 6 hours as needed for Wheezing Contact prescribing physician if questions or concerns \.br\ Unchanged amlodipine (amLODIPine 5 mg Tab) 1 Tablets By Mouth Every day Contact prescribing physician if questions or concerns \.br\ Unchanged aspirin 81 Milligram By Mouth Every day Contact prescribing physician if questions or concerns \.br\ Unchanged atorvastatin (atorvastatin 40 mg Tab) Contact prescribing physician if questions or concerns \.br\ Unchanged calcium-vitamin D (calcium (as carbonate)-vitami n D 500 mg-400 intl units oral tablet) 1 Tablets By Mouth Every day Contact prescribing physician if questions or concerns \.br\ Unchanged insulin lispro (Lyumjev KwikPen 100 units/ mL injectable solution) 10-12-15 units according to meal sizes Contact prescribing physician if questions or concerns \.br\ Unchanged metoprolol (Metoprolol succinate 50 mg ER Tablet) By Mouth Every day Contact prescribing physician if questions or concerns \.br\ Unchanged Misc Prescription (Glucometer) See instructions Dx: E11.9 Directions: Test BID Contact prescribing physician if questions or concerns \.br\ Unchanged Misc Prescription (Lancets) See instructions Dx: E11.9 Directions: BID Contact prescribing physician if questions or concerns \.br\ Unchanged Misc Prescription (Test strips) See instructions Dx: E11.9 Directions: BID Contact prescribing physician if questions or concerns \.br\ Unchanged multivitamin (Multi Vitamins oral tablet) 1 Tablets By Mouth At bedtime Contact prescribing physician if questions or concerns \.br\ Unchanged nitroglycerin (NitroStat 0.4 mg Tab) 1 Tablets Sublingual Every 5 minutes as needed for Chest pain Contact prescribing physician if questions or concerns \.br\ Unchanged psyllium (Metamucil) By Mouth Contact prescribing physician if questions or concerns \.br\ Unchanged rivaroxaban (Xarelto 10 mg oral tablet) By Mouth Every day Contact prescribing physician if questions or concerns \.br\ Unchanged ubiquinone (Co Q-10) By Mouth Every day Contact prescribing physician if questions or concerns \.br\ Allergies\.br\ Aldactazide (Hives)\.br\ Cardura (Unknown)\.br\ Diovan (Unknown)\.br\ Glucophage\.br\ Hytrin\.br\ Prinivil\.br\ Zestril (Diarrhea)\.br\ hydrochlorothiazi de-lisinopril (Diarrhea)\.br\ Problems\.br\ Ongoing - Any problem that you are currently receiving treatment for.\.br\ BMI 36.0-36.9,adult\. 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 br\ DVT - Deep vein thrombosis\.br\ Hyperlipidemia\.b r\ Postsurgical dumping syndrome\.br\ Stage 3b chronic kidney disease\.br\ Venous stasis ulcer\.br\ Patient Survey\.br\ You may receive a survey via text or e-mail asking about your office visit. Please share your experience with us by completing your survey. We appreciate your feedback and thank you for choosing us for your care.\.br\ \.br\ [facility] Family Medicine Office/Clini c Noteon 07-28-2023 Family Medicine Office/Clinic Note Chief Complaint pt here for 4 month f/u History of Present Illness Patient is here for follow-up on Diabetes. How often are you checking your blood sugars? _q day What are your average readings? 78-300 Do you have low blood sugar readings/symptoms? [...] you had any recent cardiopulmonary testing? no Patient has seen Dr. Ruggiero in the past, central office installer, having trouble getting into see him. The last month she increased her Tresiba from 50 units daily to 50 units twice daily the sugars have gone down immensely so the most recent A1c may not reflect her true sugars. She will recheck A1c in 2 to 3 months and decide on dosing from there. Review of Systems PHQ Score Initial Depression [...] noncontributory. Physical Exam Vitals & Measurements T: 36.4 ?C(Oral) HR: 66(Peripheral) BP: 140/70 SpO2: 97% HT: 65 in HT: 165 cm WT: 100.4 kg WT: 220.88 lb BMI: 36.88 General: Well developed, well nourished, in no [...] x3. Normal mood and affect Assessment/Plan 1. Type 2 diabetes mellitus with hypercholesterolemia (E11.69: Type 2 diabetes mellitus with other specified complication) A1c 11.3 2 months ago. See above 50 units daily, insulin lisinopril 10 to 15 units according to meal sizes with mealsCurrently taking, diet and exercise: Dr Powell following. 2. Type 2 diabetes mellitus with stage 3 chronic kidney disease (E11.22: Type 2 diabetes mellitus with diabetic chronic kidney disease) Medications per #1 and for above. Follow-up with Dr. Núñez, nephrology 3. HTN - Hypertension (I10: Essential (primary) hypertension) Good control with medications per #4 4. 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 (I25.10: Atherosclerotic heart disease of viejas coronary artery without angina pectoris) Good control with amlodipine 5 mg p.o. daily, aspirin 81 mg p.o. daily atorvastatin 40 mg p.o. daily chlorthalidone 25 mg p.o. daily losartan 50 mg p.o. twice daily metoprolol 50 mg ER p.o. daily sublingual nitro as needed, potassium chloride 10 mill equivalents p.o. daily continue follow-up with cardiology 5. Chronic renal impairment, stage 3a (N18.31: Chronic kidney disease, stage 3a) Follow-up with Dr. Montero surveillance A1c is good sugar a (more content not included)... Normal [facility] Comment on above: Result Comment: Elec tronically Signed By: Christopher WELLS DO, FAAFP\francisco\Date and Time Signed: 07/28/23 08:54 EDT Patient Educationon 07-28-19 Patient Education Endocrinology Blood Glucose Monitoring, Adult Monitoring your blood sugar (glucose) is an important part of managing your diabetes. Blood glucose monitoring involves checking your blood glucose as often as directed and keeping a log or record of your results over time. Checking your blood glucose regularly and keeping a blood glucose log can: ? Help you and your health care provider adjust your diabetes management plan as needed, including your medicines or insulin. ? Help you understand how food, exercise, illnesses, and medicines affect your blood glucose. ? Let you know what your blood glucose is at any time. You can quickly find out if you have low blood glucose (hypoglycemia) or high blood glucose (hyperglycemia). Your health care provider will set individualized treatment goals for you. Your goals will be based on your age, other medical conditions you have, and how you respond to diabetes treatment. Generally, the goal of treatment is to maintain the following blood glucose levels: ? Before meals (preprandial): 80?130 mg/dL (4.4?7.2 mmol/L). ? After meals (postprandial): below 180 mg/dL (10 mmol/L). ? A1C level: less than 7%. Supplies needed: ? Blood glucose meter. ? Test strips for your meter. Each meter has its own strips. You must use the strips that came with your meter. ? A needle to prick your finger (lancet). Do not use a lancet more than one time. ? A device that holds the lancet (lancing device). ? A journal or log book to write down your results. How to check your blood glucose Checking your blood glucose 1. Wash your hands for at least 20 seconds with soap and water. 2. Prick the side of your finger (not the tip) with the lancet. Do not use the same finger consecutively. 3. Gently rub the finger until a small drop of blood appears. 4. Follow instructions that come with your meter for inserting the test strip, applying blood to the strip, and using your blood glucose meter. 5. Write down your result and any notes in your log. Using alternative sites Some meters allow you to use areas of your body other than your finger (alternative sites) to test your blood. The most common alternative sites are the forearm, the thigh, and the palm of your hand. Alternative sites may not be as accurate as the fingers because blood flow is slower in those areas. This means that the result you get may be delayed, and it may be different from the result that you would get from your finger. Use the finger only, and do not use alternative sites, if: ? You think you have hypoglycemia. ? You sometimes do not know that your blood glucose is getting low (hypoglycemia unawareness). General tips and recommendations Blood glucose log ? Every time you check your blood glucose, write down your result. Also write down any notes about things that may be affecting your blood glucose, such as your diet and exercise for the day. This information can help you and your health care provider: ? Look for patterns in your blood glucose over time. ? Adjust your diabetes management plan as needed. ? Check if your meter allows you to download your records to a computer or if there is an raman for the meter. Most glucose meters store a record of glucose readings in the meter. If you have type 1 diabetes: ? Check your blood glucose 4 or more times a day if you are on intensive insulin therapy with multiple daily injections (MDI) or if you are using an insulin pump. Check your blood glucose: ? Before every meal and snack. ? Before bedtime. ? Also check your blood glucose: ? If you have symptoms of hypoglycemia. ? After treating low blood glucose. ? Before doing activities that create a risk for injury, like driving or using machinery. ? Before and after exercise. ? Two hours after a meal. ? Occasionally between 2:00 a.m. and 3:00 a.m., as directed. ? You may need to check your blood glucose more often, 6?10 times per day, if: ? You have diabetes that is not well controlled. ? You are ill. ? You have a history of severe hypoglycemia. ? You have hypoglycemia unawareness. If you have type 2 diabetes: ? Check your blood glucose 2 or more times a day if you take insulin or other diabetes medicines. ? Check your blood glucose 4 or more times a day if you are on intensive insulin therapy. Occasionally, you may also need to check your glucose between 2:00 a.m. and 3:00 a.m., as directed. ? Also check your blood glucose: ? Before and after exercise. ? Before doing activities that create a risk for injury, like driving or using machinery. ? You may need to check your blood glucose more often if: ? Your medicine is being adjusted. ? Your diabetes is not well controlled. ? You are ill. General tips ? Make sure you always have your supplies with you. ? After you use a few boxes of test strips, adjust (calibrate) your blood glucose meter by following in (more content not included)... Normal [facility] Retail - Clinical Noteon Retail - Clinical Note [id number]#1.00T IFF Normal [facility] Consultation Noteon 06-10-19 Consultation Note [id number]#1.00T IFF Normal [facility] Consent for Treatmenton 04-17 Consent for Treatment [id number]#1.00T IFF Normal [facility] Consent for Treatment [id number]#1.00T IFF Normal [facility] UcpY1gkn 05-11-2023 HbA1c (Bld) [Mass fraction] 11.3 % High <=5.9 [facility] Comment on above: Performed By: #### 7 [id number] ####[facility] [address] [place] [address] Physician Orderon 05-11-2023 Physician Order [id number]#1.00T IFF Normal [facility] Renal Panelon 05-11-2023 Albumin [Mass/Vol] 3.9 g/dL Normal 3.3-5.0 [facility] Comment on above: Performed By: #### 2 272100, [id number] #### [facility] [address] [place] [address] Anion gap [Moles/Vol] 13 mmol/L Normal 08-29 [facility] Comment on above: Performed By: #### 2 797330, 1332589 #### [facility] [address] [place] [address] BUN/Creat Ratio 16 No Units Normal 01-02 [facility] Comment on above: Performed By: #### 2 482840, 3866063 #### [facility] [address] [place] [address] Calcium [Mass/Vol] 8.9 mg/dL Normal 8.9-11.1 [facility] Comment on above: Performed By: #### 2 863086, 1433271 #### [facility] [address] [place] [address] Chloride [Moles/Vol] 101 mmol/L Normal 101-111 [facility] Comment on above: Performed By: #### 2 014535, 6166909 #### [facility] [address] [place] [address] CO2 [Moles/Vol] 28 mmol/L Normal 21-31 [facility] Comment on above: Performed By: #### 2 653762, [id number] #### [facility] [address] [place] [address] Creatinine [Mass/Vol] 1.2 mg/dL Normal 0.5-1.3 [facility] Comment on above: Performed By: #### 2 982189, 8727840 #### [facility] [address] [place] [address] Glucose [Mass/Vol] 385 mg/dL High 55-199 [facility] Comment on above: Performed By: #### 2 672186, 3112014 #### [facility] [address] [place] [address] Phosphate [Mass/Vol] 3.5 mg/dL Normal 1.9-4.6 [facility] Comment on above: Performed By: #### 2 438498, 8357988 #### [facility] [address] [place] [address] Potassium [Moles/Vol] 4.3 mmol/L Normal 3.5-5.3 [facility] Comment on above: Performed By: #### 2 352685, 5611939 #### [facility] [address] [place] [address] Sodium [Moles/Vol] 138 mmol/L Normal 135-145 [facility] Comment on above: Performed By: #### 2 244661, 5066669 #### [facility] [address] [place] [address] Urea nitrogen [Mass/Vol] 19 mg/dL Normal 5-21 [facility] Comment on above: Performed By: #### 2 770935, 6100107 #### [facility] [address] [place] [address] U Protein/Creat Ratioon 04-17 U Creatinine 34.3 mg/dL Invalid Interpretation Code [facility] Comment on above: Performed By: #### 1 9014796, [id number] #### [facility] [address] [place] [address] U Prot/Creat Ratio 13.70 mg/gm Cr Normal .00-200.00 [facility] Comment on above: Performed By: #### 1 6895186, [id number] #### [facility] [address] [place] [address] Ur Total Protein <6.0 Invalid Interpretation Code [facility] Comment on above: Performed By: #### 1 3729352, [id number] #### [facility] [address] [place] [address] Urinalysison 05-11-2023 Bilirubin Ql (U) Negative Normal Negative [facility] Comment on above: Performed By: #### 1 1976716, [id number] #### [facility] [address] [place] [address] Clarity (U) CLEAR Normal Clear [facility] Comment on above: Performed By: #### 1 3932411, [id number] #### [facility] [address] [place] [address] Color (U) YELLOW Normal Yellow [facility] Comment on above: Performed By: #### 1 3721668, [id number] #### [facility] [address] [place] [address] Epithelial cells.squamous LM.HPF (Urine sed) [#/Area] 0-2 Normal 0-2 [facility] Comment on above: Performed By: #### 1 1184797, [id number] #### [facility] [address] [place] [address] Glucose Test strip (U) [Mass/Vol] 3+ Abnormal Negative [facility] Comment on above: Performed By: #### 1 1482067, [id number] #### [facility] [address] [place] [address] Hemoglobin Ql (U) Negative Normal Negative [facility] Comment on above: Performed By: #### 1 2356726, [id number] #### [facility] [address] [place] [address] Ketones (U) [Mass/Vol] Negative Normal Negative [facility] Comment on above: Performed By: #### 1 6614585, [id number] #### [facility] [address] [place] [address] Conroy.plasma/Lith ium.RBC (Bld) [Mass ratio] 0-3 Normal 0-3 [facility] Comment on above: Performed By: #### 1 2180074, [id number] #### [facility] [address] [place] [address] Nitrite Ql (U) Negative Normal Negative [facility] Comment on above: Performed By: #### 1 2734234, [id number] #### [facility] [address] [place] [address] pH (U) 5.5 [pH] Invalid Interpretation Code 5.0-9.0 [facility] Comment on above: Performed By: #### 1 3674995, [id number] #### [facility] [address] [place] [address] Protein (U) [Mass/Vol] Negative Normal Negative [facility] Comment on above: Performed By: #### 1 3632857, [id number] #### [facility] [address] [place] [address] Specific gravity (U) [Rel density] 1.010 Invalid Interpretation Code 1.005-1.030 [facility] Comment on above: Performed By: #### 1 2108542, [id number] #### [facility] [address] [place] [address] Type of Urine collection method Clean Catch Normal [facility] Comment on above: Performed By: #### 1 1110324, [id number] #### [facility] [address] [place] [address] Urobilinogen Qn (U) 0.2 {Donell'U}/dL Normal 0.0-1.0 [facility] Comment on above: Performed By: #### 1 9905340, [id number] #### [facility] [address] [place] [address] WBC Auto Ql (U) Negative Normal Negative [facility] Comment on above: Performed By: #### 1 2597534, [id number] #### [facility] [address] [place] [address] WBC LM.HPF (Urine sed) [#/Area] 0-5 Normal 0-5 [facility] Comment on above: Performed By: #### 1 0205784, [id number] #### [facility] [address] [place] [address] eGFRon 05-11-2023 eGFR 48 mL/min/1.73 m2 Low >=59 [facility] Comment on above: Order Comment: Order added by Discern Expert. Performed By: #### 2 036613, [id number] #### [facility] [address] [place] [address] Consent for Treatmenton 03-17 Consent for Treatment [id number]#1.00T IFF Normal [facility] Discharge Instructionson Discharge Instructions [id number]#1.00 TIFF Normal [facility] ED Clinical Summaryon 2023 ED Clinical Summary (Inserted Image. [place] ble to display) [place] [id number] ED Clinical Summary Person Information Name: EVON CORCORAN Laura/[facility] Age: 72 Years : 1950 Sex: Female Language: Macanese PCP: Christopher WELLS DO, FAAFP Marital Status: [...] 04/10/2023 11:23:38 04/10/2023 11:23:38 04/10/2023 11:23:38 ADDRESS: [address] [facility] [id number] PHYS DOC NOTES: MEDICAL INFORMATION: Prescriptions Given: New Medications [id number], [address] [place], [place] [id number], [phone] albuterol (Albuterol (Eqv-ProAir HFA) 90 mcg/inh inhalation [...] Adult Follow up: With: Address: When: Christopher [facility] [address] [place] [id number] [place] (1) In 3 days 04/13/2023 DIAGNOSIS: Bronchitis Normal [facility] ED Note-Physicianon 04-10-19 ED Note-Physician Basic Information [...] No known sick contacts. She is taking sjqm-aue-ugtxcww cough and cold medications. Review of Systems [...] Wheezing, 8.5 gm, Refill(s) 0, [facility] #[id number], 165, cm, 04/10/23 9:26:00 EST, Height/Length Dosing, 96.9, kg, 04/10/23 9:26:00 EST, Weight Dosing azithromycin, = 1 packet(s), Oral, As Directed, as directed on package labeling, X 5 day(s), # 6 tab(s), Refills(s) 0, Pharmacy: [facility] #[id number], 165, cm, 04/10/23 9:26:00 EST, Height/Length Dosing, 96.9, kg, 04/10/23 9:26:00 EST, Weight Dosing predniSONE, 60 mg = 3 tab(s), Oral, Daily, X 7 day(s), # 21 tab(s), Refills(s) 0, Pharmacy: [facility] #[id number], 165, cm, 04/10/23 9:26:00 EST, Height/Length Dosing, [...] WELLS In 3 days 04/13/2023 EST [address], [facility] [place] [address] [facility] (1) Additional Instructions: Patient Education Acute Bronchitis, Adult Attestation Patient seen and evaluated by the physician coding assistant. Attending physician was present in the emergency department and supervised care. This visit was performed by both the physician and an APC. I performed all aspects of the MDM as documented. This report was transcribed using voice recognition software. Every effort was made to ensure accuracy, however, inadvertently computerized judicial reporter mistakes may be present. Appropriate healthcare PPE was used in evaluating this patient. The patient was placed in a mask. The healthcare provider was wearing mask, gloves, and utilizing proper hand hygiene. All equipment was properly cleansed. 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 Normal [facility] Comment on above: Result Comment: Elec tronically [...] Follow these instructions at home: ? Take cnse-hnt-nbzhgxq and prescription medicines only as told by [...] and water are not available, use hand flight operations coordinator. ? Avoid contact with people who have [...] is easier to cough up. ? Take xycb-rit-qwdfrtk and prescription medici (more content not included)... Normal [facility] ED Patient Summaryon 024 ED Patient Summary (Inserted Image. [place] ble to display) [address] [address] Patient Discharge Instructions Person Information Name: EVON CORCORAN Age: 72 Years Arrival Date: 04/10/2023 09:13:22 Discharge Diagnosis: Bronchitis Primary Care Physician: Christopher WELLS DO, FAAFP Provider Information Primary Provider: Malvin Gupta M.D. Advanced Windlasser:Radhames Suarez PA-C The exam and treatment you received in the Emergency Department were for an urgent problem and are not intended as complete care. It is important that you follow up with a doctor, nurse practitioner, or physician?s coding assistant for ongoing care. If your symptoms [...] Follow-up Instructions: With: Address: When: Christopher WELLS [address] [place] [address], [facility] [place] [address] Business (1) In 3 days 04/13/2023 In the event that this physician does not participate in your insurance network, please consult with your insurance company to find a nearby participating provider. Patient Education Materials: Acute Bronchitis, Adult A MESSAGE TO ALL PATIENTS REGARDING OPIOIDS PRESCRIPTION OPIOIDS: WHAT YOU NEED TO KNOW Prescription opioids can be used to help relieve bstgisll-fa-khqipi pain and are often prescribed following a [...] be struggling with addiction, tell your health complex care nurse practitioner and ask for guidance or call [facility]?S National Helpline at 3-199-291-HELP. v Sour (more content not included)... Normal [facility] XR Chest 2 Viewson 4 XR Chest [...] MD Transcribed by: KATEY Technologist: JUAN [facility] Consent for Treatmenton Consent for Treatment [id number]#1.00T [facility]FF [facility] Consultation Noteon 03-23-19 24 Consultation [...] 11, Dx: E11.9 Directions: BID, [id number], Supply, 165, cm, 06/11/22 9:10:00 EDT, Height/Length Dosing, 97.6, kg, 06/11/22 9:10:00 EDT, Weight Dosing Tresiba FlexTouch 100 units/mL subcutaneous solution: 50 unit(s), SubCutaneous, Daily, Dx E11.65, # 5 EA, Refills(s) 11, Pharmacy: [facility] #[id number], 165, cm, 06/11/22 9:10:00 EDT, Height/Length Dosing, 97.6, kg, 06/11/22 9:10:00 EDT, Weight Dosing chlorthalidone 25 mg Tab: 25 mg = 1 tab(s), Oral, Bedtime, # 90 tab(s), Refills(s) 1, Pharmacy: [facility] #[id number], 165, cm, 09/10/22 8:16:00 EDT, Height/Length Dosing, 97.4, kg, 09/10/22 8:16:00 EDT, Weight Dosing potassium chloride 10 mEq Cap-ER: 10 mEq = 1 cap(s), Oral, Daily, # 90 cap(s), Refills(s) 3, Pharmacy: [facility] #[id number], 165, cm, 05/21/22 12:25:00 EST, Height/Length Dosing, [...] Problems HTN - Hypertension / SNOMED CT 3768771030 / Confirmed Familial hypercholesteremia / SNOMED CT 4069815686 / Confirmed Non-smoker / SNOMED CT 70873895 / Confirmed 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 Type 2 diabetes mellitus with stage 3 chronic kidney disease / SNOMED CT 231888695 / Confirmed linked DM with CKD per outpatient CDI policy. Mild nonproliferative diabetic retinopathy of both eyes / SNOMED CT 456163540 / Confirmed noted in 08/21/2019 Diabetic Eye Exam. added per outpatient CDI policy. 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 Normal [facility] Comment on above: Result Comment: Elec tronically Signed By: Dawit BARTH, Mara\.br\Date and Time Signed: 03/23/23 09:07 EST Legal Correspondence Officeo n 03-23-2023 Legal Correspondence Office [id number]#1.00 TIFF Normal [facility] Office/Clinic Note-Physician on 03-23-2023 Office/Clinic Note-Physician [id number]#1.00 TIFF Normal [facility] Patient Correspondenceon Patient Correspondence [id number]#1.00 TIFF Normal [facility] Patient Correspondence [id number]#1.00 TIFF Normal [facility] Patient Correspondence [id number]#1.00 TIFF Normal [facility] Patient Correspondence [id number]#1.00 TIFF Normal [facility] Patient History Officeon Patient History Office [id number]#1.00 TIFF Normal [facility] Family Medicine Office/Clini c Noteon 03-20-2023 Family [...] re: potential procedure: Clinically currently asymptomatic and rsc-tqlx-ddvamiucwyb. Please see Dr. Castro's consultation 2. BMI [...] and exercise. 4. Long-term insulin use (Z79.4: retirement (current) use of insulin) Dr Benz following. 5. Mild nonproliferative diabetic retinopathy of both eyes (E11.3293: Type 2 diabetes mellitus with mild nonproliferative diabetic retinopathy without macular edema, bilateral) Follow-up with personnel monitor 6. Type 2 diabetes mellitus with hypercholesterolemia (E11.69: Type 2 diabetes mellitus with other specified complication) Tresiba 50 units SQ every morning with sliding scale per med rec per Dr. Salter. Continue losartan: Sugars improved, surveillance A1c's per Dr. Ruggiero 7. Type 2 diabetes mellitus with stage (more content not included)... Normal [facility] Comment on above: Result Comment: Elec tronically Signed By: LIBAN SHEPHERD FAAFP, Christopher Montenegro\.br\Date and Time Signed: 03/20/23 09:40 [...] Your health care provider or certified medical aide can help you make a plan for [...] stroke). Where to find more information ? [place] [employer]: www.diabetes.org Summary ? Exercising regularly is important for overall health, especially for people who have diabetes mellitus. ? Exercising has many health benefits. It increases muscle strength and bone density and reduces body fat and stress. It also lowers and controls blood glucose. ? Your health care provider or certified medical aide can help you make an activity plan [...] provider. Document Revised: 11/28/2019 Document Reviewed: 11/28/2019 Operation Supply Drop Patient Education ? 2022 [employer]. [facility] Nursing Note - Woundon 03-19 Nursing Note - Wound [id number]#2.00 TIFF [facility] Consultation Noteon 03-07-20 23 Consultation Note [id number]#1.00T IFF [facility] CHEMISTRYOrdered By: Lab ROP User on 03-04-2023 Glucose [Mass/Vol] 78 mg/dL Normal 55 - 99 mg/dL FT C POC Subsection POC Device SN [id number] Invalid Interpretation Code [facility] [place] Subsection POC Username MACIE POTTS Invalid Interpretation Code [facility] [place] Subsection Sodium [Moles/Vol] 110026491 mmol/L Invalid Interpretation Code [facility] [place] Subsection Capillary Glucose POCon 02-14 Glucose [Mass/Vol] 78 mg/dL Normal 55-99 [facility] Comment on above: Performed By: #### 2 [id number] #### [facility] [address] [place] [address] Consent for Procedure/Surger yon 03-04-2023 Consent for Procedure/Surgery [id number]#1.00 TIFF Normal [facility] Consent for Treatmenton 02-14 Consent for Treatment [id number]#1.00T IFF Normal [facility] Discharge Instructionson Discharge Instructions [id number]#1.00 TIFF Normal [facility] Insurance Correspondenceon 05-05-2022 Insurance Correspondence [id number]#1.00 TIFF Normal [facility] IntraOperative Documentson 05-05-2022 IntraOperative Documents [id number]#1.00 TIFF Normal [facility] Main OR Intraoperative Recor don 03-04-2023 Main OR Intraoperative Record IntraOp Document Type FTPM Summary Primary Physician: Nicola Tapia DO Finalized Date/Time: 03/04/23 09:06:01 Pt. Name: EVON CORCORAN Brent Veras/Sex: 1950 Female Med Rec #: [id number] Physician: Nicola Tapia DO Financial #: [id number] Pt. Type: P Room/Bed: / Admit/Disch: 03/04/23 07:48:24 - Institution: Case Times FTPM Entry 1 Patient Times In Room 03/04/23 09:01:00 Out Room 03/04/23 09:06:00 Procedure Times Start 03/04/23 09:04:00 Stop 03/04/23 09:05:00 Anesthesia Times Last Modified By: Crow ECHAVARRIA, Estrellita Thompson 03/04/23 09:05:48 Case Attendance FTPM Entry 1 Entry 2 Entry 3 Case Attendee Nicola Tapia DO, RN, Estrellita Armstrong RN, Leanne Moni Role Performed Surgeon - Primary Expanding Machine Operator - Primary Scrub - Primary Time In 03/04/23 09:01:00 03/04/23 09:01:00 03/04/23 09:01:00 Time Out 03/04/23 09:06:00 03/04/23 09:06:00 03/04/23 09:06:00 Procedure HIP INJECTION(Left) HIP INJECTION(Left) HIP INJECTION(Left) Comments Last Modified By: Estrellita Maria RN, RN, Estrellita Ryder RN 03/04/23 09:05:56 03/04/23 09:05:56 03/04/23 09:05:56 Entry 4 Case Attendee Ervin Mckeon Role Performed Resolution Manager Time In 03/04/23 09:01:00 Time Out 03/04/23 09:06:00 Procedure HIP INJECTION(Left) Comments Last Modified By: Estrlelita Maria RN 03/04/23 09:05:56 Perioperative Protocols FTPM [...] No Time Out Estrellita Maria RN, Given Ken Armstrong RN, Willie Padgett DO, Bradford A., [...] and tissue Entry 1 Skin Integrity Intact, [place], Warm, and Skin Abnormality No Dry Outcomes [...] (more content not included)... Normal [facility] Main OR Preoperative Recordo n 03-04-2023 Main OR Preoperative Record Holding Area Document Type FTPM Summary Primary Physician: Nicola Tapia DO Finalized Date/Time: 03/04/23 08:19:34 Pt. Name: EVON CORCORAN Rito/Sex: 1950 Female Med Rec #: [id number] Physician: Nicola Tapia DO Financial #: [id number] Pt. Type: P Room/Bed: / Admit/Disch: 03/04/23 [...] Signed By: Macie Potts RN 03/04/23 08:19 Normal [facility] Consent for Treatmenton 02-13 Consent for Treatment [id number]#1.00T IFF Normal [facility] Multi-Wound Charton 03-03-20 Multi-Wound Chart [id number]#1.00 TIFF [facility] Nursing Assessment - Woundon 03-03-2023 Nursing Assessment - Wound [id number]#1.00 TIFF [facility] Physician Orderon 03-03-2023 Physician Order [id number]#1.00 TIFF [facility] Progress Note - Woundon 02-13 Progress Note - Wound [id number]#1.00 TIFF [facility] Correspondence - Woundon Correspondence - Wound [id number]#1.00 TIFF [facility] Consent for Procedure/Surger yon 02-24-2023 Consent for Procedure/Surgery [id number]#1.0 0TIFF [facility] Consent for Treatmenton 02-13 Consent for Treatment [id number]#1.00T IFF [facility] Multi-Wound Charton 02-25-20 Multi-Wound Chart [id number]#1.00 TIFF [facility] Nursing Assessment - Woundon 02-24-2023 Nursing Assessment - Wound [id number]#1.00 TIFF [facility] Nursing Note - Woundon 02-24 Nursing Note - Wound [id number]#1.00 [facility] Physician Orderon 02-24-2023 Physician Order [id number]#1.00 [facility] Procedure - Woundon 02-25-20 Procedure - Wound [id number] 202 [id number]#1.00 TIFF Normal [facility] Progress Note - Woundon 02-13 Progress Note - Wound [id number]#1.00 TIFF Normal [facility] Retail - Clinical Noteon Retail - Clinical Note [id number]#1.00T IFF Normal [facility] US venous mapping BI loweron 02-19-2023 US venous mapping BI [facility] [place] [address] Ultrasound Report Signed Patient: Evon Corcoran MR#: [id number] : 1950 Acct:[id number] Age/Sex: 72 / F ADM Date: 02/18/23 Loc: Room: Type: [facility] Attending Dr: Miguel Membreno MD Ordering [...] Miguel Membreno M.D.02/19/2023 1:30 PM Dictation Location: [facility] Tech: Marilou Keckler Transcribed By: RICH 02/19/23 1330 Dictated By: Miguel Membreno MD 02/19/23 1327 Signed By: 02/19/23 1330 Normal [facility] Blood Urea Nitrogenon 2022 Urea nitrogen [Mass/Vol] 25 mg/dL Normal 7-25 [facility] Comment on above: Performed By: #### C REAT, BUN #### [facility] [address] [place] [address] [place] Creatinineon 02-18-2023 Creatinine [Mass/Vol] 1.18 mg/dL Normal 0.60-1.20 [facility] Comment on above: Performed By: #### C REAT, BUN #### [facility] [address] Creatinine Clr Calc Pharmacy 49.07 [facility] Comment on above: Result Comment: PERF ORMED BY: [place] [address] PATHOLOGIST SKIMMER SCOOP OPERATOR AIRAM ROMEO M.D. Performed By: #### C REAT, BUN #### [facility] [address] GFR/1.73 sq M.predicted MDRD (S/P/Bld) [Vol rate/Area] 48.770 mL/min/{1.73_m2} [facility] Comment on above: Performed By: #### C REAT, BUN #### [facility] [address] Creatinine [Mass/volume] in Serum or PlasmaOrdered By: Miguel Membreno on 02-18-2023 Creatinine [Mass/Vol] 1.18 mg/dL 0.60-1.20 [facility] Lab Reportson 02-18-2023 Lab Reports [id number]#1.00T IFF Normal [facility] No Panel InformationOrdered By: Miguel Membreno on 02-18-2023 Estimated GFR (CKD-EPI) 48.770 mL/Min [facility] Pharmacy Creatinine Clearance (Chem 49.07 [facility] Operative Reporton Operative Report [id number]#1.00T IFF Normal [facility] Retail - Clinical Noteon Retail - Clinical Note [id number]#1.00T IFF Normal [facility] Retail - Clinical Note [id number]#1.00T IFF Normal [facility] Urea nitrogen [Mass/volume] in Serum or PlasmaOrdered By: Miguel Membreno on 02-18-2023 Urea nitrogen [Mass/Vol] 25 mg/dL 10-07 [facility] Insurance Correspondenceon 04-20-2022 Insurance Correspondence [id number]#1.00 TIFF Normal [facility] Physician Orderon 02-17-2023 Physician Order [id number]#1.00 TIFF Normal [facility] CHEMISTRYOrdered By: Lab ROP User on 02-16-2023 Glucose [Mass/Vol] 311 mg/dL High 55 - 99 mg/dL [facility] C POC Subsection POC Device SN [id number] Invalid Interpretation Code [facility] POC Subsection POC Username RONI CHOWDHURY Invalid Interpretation Code [facility] POC Subsection Sodium [Moles/Vol] 119930546 mmol/L Invalid Interpretation Code [facility] POC Subsection Capillary Glucose POCon Glucose [Mass/Vol] 311 mg/dL High 55-99 [facility] Comment on above: Performed By: #### 2 [id number] #### [facility] [address] [place] [address] Consent for Treatmenton Consent for Treatment [id number]#1.00T [facility]FF [facility] Consent for Treatment [id number]#1.00T IFF [facility] Main OR Preoperative Recordo n 02-16-2023 Main OR Preoperative Record Holding Area Document Type FTPM Summary Primary Physician: Gary Cerda MD Finalized Date/Time: 02/16/23 13:36:16 Pt. Name: EVON CORCORAN /Sex: 1950 Female Med Rec #: [id number] Physician: Gary Cerda MD Financial #: [id number] Pt. Type: P Room/Bed: / Admit/Disch: 02/16/23 [...] Chowdhury RN 02/16/23 13:36 Normal [facility] Multi-Wound Charton 02-17-20 Multi-Wound Chart [id number] 201 [id number]#1.00 TIFF Normal [facility] Nursing Assessment - Woundon 02-16-2023 Nursing Assessment - Wound [id number]#1.00 [facility] Nursing Note - Woundon 02-16 Nursing Note - Wound [id number]#1.00 TIFF [facility] Patient Correspondenceon Patient Correspondence [id number]#1.00T IFF [facility] Consent for Procedure/Surger yon 02-10-2023 Consent for Procedure/Surgery [id number]#1.00 [facility]FF [facility] Consent for Treatmenton 01-15 Consent for Treatment [id number]#1.00T IFF [facility] Multi-Wound Charton 02-11-20 Multi-Wound Chart [id number] 102 [id number]#1.00 TIFF [facility] Nursing Assessment - Woundon 02-10-2023 Nursing Assessment - Wound [id number]#1.00 TIFF [facility] Nursing Note - Woundon 02-10 Nursing Note - Wound [id number]#1.00 [facility]FF [facility] Physician Orderon 02-10-2023 Physician Order [id number] 102 [id number]#1.00 [facility]FF [facility] Procedure - Woundon 02-11-20 Procedure - Wound [id number] 102 [id number]#1.00 TIFF [facility] Progress Note - Woundon 01-15 Progress Note - Wound [id number]#1.00 [facility]FF [facility] Insurance Correspondenceon 04-05-2022 Insurance Correspondence [id number]#1.00 TIFF [facility] Insurance Correspondenceon 04-04-2022 Insurance Correspondence [id number]#1.00 [facility]FF [facility] Patient Letter [facility] 2022 Patient Letter [facility] January 29, 2023 EV[address] COR[address]AN [address] [place] [address] EVON CORCORAN L 1950 We are pleased [...] in the following areas: ? Assign a Cras who will work with you to help [...] phone contact on 02/19/2023 at 08:00 AM. [facility] [phone] opt. #2 [facility] Consent for Procedure/Surger yon 01-27-2023 Consent for Procedure/Surgery [id number]#1.00 TIFF [facility] Consent for Treatmenton 01-14 Consent for Treatment [id number]#1.00T IFF [facility] Multi-Wound Charton 01-28-20 23 Multi-Wound Chart [id number]#1.00 TIFF [facility] Nursing Assessment - Woundon 01-27-2023 Nursing Assessment - Wound [id number]#1.00 TIFF [facility] Nursing Note - Woundon 01-27 Nursing Note - Wound [id number]#1.00 [facility]FF [facility] Physician Orderon 01-27-2023 Physician Order [id number] 102 [id number]#1.00 [facility] Procedure - Woundon 01-28-20 Procedure - Wound [id number] 102 [id number]#1.00 TIFF [facility] Progress Note - Woundon 01-14 Progress Note - Wound [id number]#1.00 [facility]FF [facility] Ambulatory Visit Summaryon 03-28-2022 Ambulatory [...] With: Denton Castro DPM Where: [facility] [place] Thursday 9:45 AM EST With: Where: [facility] Thursday 8:45 AM EST With: Gary Cerda MD Where: [facility] 2022 8:00 AM EST With: Linda Solorio CNP Where: [facility] Invalid Interpretation Code [address], [facility] [place] [address]- \.br\ Thursday 8:00 AM EST \.br\ With:\.br\ Where: [facility] Primary Care [facility] Family Medicine Office/Clini c Noteon 01-26-2023 Family [...] were given. Reviewed Medicare Prevention Services checklist. [facility] Prevention and home safety screening reviewed. Patient [...] Labs were ordered, to be completed with [facility]. Mammogram and DEXA scan up to date, [...] as directed. 3. Long-term insulin use (Z79.4: terminal operator (current) use of insulin) Patient voices understanding with proper use of insulin dosage. Follows up with labs, DM supplies and dosage adjustments as needed. Reviewed available sites that can be used to administer Insulin, patient voices understanding. Will continue as directed. 4. Chronic renal impairment, stage 3a (N18.31: Chronic kidney disease, stage 3a) Follows with Chief Digital Officer, Dr. Núñez. Encouraged with avoiding NSAID's. Healthy Kidney Nutritional education material provided. Goals to keep blood sugars and blood pressure under better control to reduce cardiovascular risk factors. Medications and blood work monitored with visits. Continues taking statin medication daily. 5. On statin therapy (Z79.899: Other longterm (current) drug therapy) Taking Atorvastatin daily, encouraged [...] labs as directed. 6. Anticoagulated (Z79.01: terminal operator (current) use of anticoagulants) Taking [...] of Hepatitis C for people born between 4859-9929. Hand (more content not included)... [facility] Comment on above: Result Comment: Elec tronically Signed By: Christopher WELLS DO, FAAFP\.br\Date and Time Signed: 01/26/23 17:15 EST\.br\Electronically Co-Signed By: Lesly West LPN\.br\Date and Time Co-Signed: 01/26/23 09:21 EST Nursing Assessment - Woundon 01-26-2023 Nursing Assessment - Wound [id number]#2.00 TIFF [facility] Nursing Note - Woundon 01-26 Nursing Note - Wound [id number]#2.00 TIFF Normal [facility] Patient Educationon 01-27-20 Patient Education Caregiving Fall [...] Keep items that you use often in adcj-bx-zjslt places. Lower the shelves around your home [...] the way. ? Do not use floor chinese or wax that makes floors slippery. What [...] Control and Prevention, [place]AD[place]: www.cdc.gov ? National [place] on Aging: www.[place].nih.gov Contact a doctor if: [...] provider. Document Revised: 12/02/2021 Document Reviewed: 10/03/2020 [employer] Patient Education ? 2022 [employer]. Endocrinology Diabetes Melli (more content not included)... [facility] 01-26-2023 Screens [id number] 021 [id number]#1.00TI FF [facility] Multi-Wound Charton 01-24-20 23 Multi-Wound Chart [id number] 105 [id number]#1.00 TIFF [facility] Physician Orderon 01-23-2023 Physician Order [id number] 105 [id number]#1.00 [facility]FF [facility] Consent for Treatmenton Consent for Treatment [id number]#1.00T IFF [facility] Consent for Procedure/Surger yon 01-14-2023 Consent for Procedure/Surgery [id number]#1.00 [facility]FF [facility] Consent for Procedure/Surgery [id number]#1.00 TIFF Normal [facility] Nursing Assessment - Woundon 01-14-2023 Nursing Assessment - Wound [id number]#1.00 TIFF Normal [facility] Nursing Note - Woundon 01-14 Nursing Note - Wound [id number]#2.00 TIFF Normal [facility] CHEMISTRYOrdered By: Cynthia Serrano se on 01-13-2023 HbA1c (Bld) [Mass fraction] 11.5 % High <=5.9% [facility] ChemAutoSS Consent for Treatmenton 12-16 Consent for Treatment [id number]#1.00T IFF Normal [facility] Consent to Photographon 12-16 Consent to Photograph [id number]#1.00T IFF Normal [facility] Correspondence - Woundon Correspondence - Wound [id number]#1.00T IFF Normal [facility] Correspondence - Wound [id number]#1.00T IFF Normal [facility] Correspondence - Wound [id number]#1.00T IFF Normal [facility] [id number] 01-13-2023 HbA1c (Bld) [Mass fraction] 11.5 % High <=5.9 [facility] Comment on above: Performed By: #### 2 [id number], [id number] #### [facility] [address] [place] [address] Multi-Wound Charton 01-14-20 Multi-Wound Chart [id number] 002 [id number]#1.00 TIFF Normal [facility] Nursing Assessment - Woundon 01-13-2023 Nursing Assessment - Wound [id number]#1.00 TIFF Normal [facility] Outside Recordson 01-13-2023 Outside Records [id number] 231 [id number]#1.00T IFF Normal [facility] Patient Correspondenceon Patient Correspondence [id number]#1.00 TIFF Normal [facility] Physician Orderon 01-13-2023 Physician Order [id number] 002 [id number]#1.00 TIFF Normal [facility] Procedure - Woundon 01-14-20 Procedure - Wound [id number] 002 [id number]#1.00 TIFF Normal [facility] Progress Note - Woundon 12-16 Progress Note - Wound [id number]#1.00 TIFF Normal [facility] Insurance Correspondenceon Insurance Correspondence [id number]#1.0 0TIFF [facility] Radiology Outside Office Alumni Relations Coordinator yon 01-07-2023 Radiology Outside Office Copy [id number]#1.00 TIFF Normal [facility] Consent for Treatmenton 12-15 Consent for Treatment [id number]#1.00T IFF Normal [facility] Consultation Noteon 01-07-20 Consultation Note Patient: EVON [...] red blood per rectum) / SNOMED CT 152192951 / Confirmed Breast cancer screening by mammogram / SNOMED CT 343561620 / Confirmed 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 / SNOMED CT 86813135 / Confirmed Change in bowel habits / SNOMED CT 992568660 / Confirmed Chronic renal impairment, stage 3a / SNOMED CT 5179931994 / Confirmed Claudication of both lower extremities / SNOMED CT 921522161 / Confirmed Colon polyp / SNOMED CT 980939340 / Confirmed Degenerative localized arthritis of hip / SNOMED CT 161205210 / Confirmed 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 / SNOMED CT 896539376 / Confirmed Diabetes / SNOMED CT 613841556 / Confirmed Diarrhea / SNOMED CT 058432636 / Confirmed Enthesopathy of left hip region / SNOMED CT 13053497 / Confirmed Familial hypercholesteremia / SNOMED CT 2886457102 / Confirmed Hemorrhoids / SNOMED CT 780770277 / Confirmed History of colon polyps / SNOMED CT 7201027443 / Confirmed History of DVT in adulthood / SNOMED CT 5114263791 / Confirmed HTN - Hypertension / SNOMED CT 7593030789 / Confirmed Hypertensive heart and chronic kidney disease without heart failure, with stage 1 through stage 4 chronic kidney disease, or unspecified chronic kidney disease / SNOMED CT 8621780490 / Confirmed noted in 12/10/2021 Nephrology Consult Note page 3. added per outpatient CDI policy. Long-term insulin use / SNOMED CT 5293370052 / Confirmed Current Medication List includes Tresiba. added per outpatient CDI policy. Lumbar disc herniation / SNOMED CT 040012331 / Confirmed Lumbar stenosis / SNOMED CT 86156391 / Confirmed Mild nonproliferative diabetic retinopathy of both eyes / SNOMED CT 619778871 / Confirmed noted in 08/21/2019 Diabetic Eye Exam. added per outpatient CDI policy. Morbid obesity / SNOMED CT 843479860 / Confirmed Non-smoker / SNOMED CT 23990021 / Confirmed Primary ovarian failure / SNOMED CT 671562264 / Confirmed Sleep apnea / SNOMED CT 814645263 / Confirmed Type 2 diabetes mellitus with hypercholesterolemia / SNOMED CT 426305437 / Confirmed linked DM with hypercholesterolemia per outpatient CDI policy. Type 2 diabetes mellitus with stage 3 chronic kidney disease / SNOMED CT 239848170 / Confirmed linked DM with CKD (more content not included)... Normal [facility] Comment on above: Result Comment: Elec tronically Signed By: Prashant PIMENTEL, Gary Damon.br\Date and Time Signed: 01/06/23 09:13 EDT HIPAA Forms Officeon 023 HIPAA Forms Office [id number] 022 [id number]#1.00 TIFF Normal [facility] Legal Correspondence Officeo n 01-06-2023 Legal Correspondence Office [id number]#1.00 TIFF Normal [facility] Legal Correspondence Office [id number]#1.00 TIFF Normal [facility] Office/Clinic Note-Physician on 01-06-2023 Office/Clinic Note-Physician [id number]#1.00 TIFF Normal [facility] Patient Correspondenceon Patient Correspondence [id number]#1.00 TIFF Normal [facility] Patient Correspondence [id number]#1.00 TIFF Normal [facility] Patient Correspondence [id number]#1.00 TIFF Normal [facility] Patient Correspondence [id number]#1.00 TIFF Normal [facility] Patient Correspondence [id number]#1.00 TIFF Normal [facility] Patient History Officeon Patient History Office [id number]#1.00 TIFF Normal [facility] Radiology Outside Office Alumni Relations Coordinator yon 01-06-2023 Radiology Outside Office Copy [id number]#1.00 TIFF Normal [facility] Consent for Treatmenton 12-14 Consent for Treatment [id number]#1.00T IFF Normal [facility] MRI Pelvis (Bony) w/o contra ston 12-31-2022 [...] by: KATEY Technologist: NUBIA Normal [facility] RAD - MRI Screening Formon 1 RAD - MRI Screening Form [id number]#1.00 TIFF Normal [facility] Physician Orderon 12-24-2022 Physician Order [id number]#1.00T IFF Normal [facility] Physician Order [id number] 004 [id number]#1.00T IFF Normal [facility] Outside Records Officeon Outside Records Office [id number]#1.00 TIFF Normal [facility] Referrals Officeon 3 Referrals Office [id number] 021 [id number]#1.00 TIFF Normal [facility] Consultation Noteon 12-23-19 23 Consultation Note [id number] 002 [id number]#1.00T IFF Normal [facility] Physician Orderon 12-22-2022 Physician Order [id number] [id number]#1.00 [facility]FF [facility] Ambulatory Visit Summaryon 1 Ambulatory Visit Summary EVON CORCORAN :1950 Visit Date:12/18/2022 Ambulatory Visit Instructions Your Diagnosis Enthesopathy of left hip region Hypertensive heart and chronic kidney disease without heart failure, with stage 1 through stage 4 chronic kidney disease, or unspecified chronic kidney disease Long-term insulin use BMI 36.0-36.9,adult Morbid obesity Chronic renal impairment, stage 3a 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 [...] Appointments Thursday 8:00 AM EST With: Where: [facility] Normal [address] [place] [place] [address]- \.br\ You Need to Schedule the Following Appointments\.br\ Follow Up with LIBAN SHEPHERD FAAFP, Christopher Montenegro, CHERISE, PED When: In 3 months\.br\ Where:\.br\ [address], [address]\ [place] [address]-\.br\ \.br\ Medications\.br\ What How Much When Why Instructions\.br\ New doxycycline (doxycycline hyclate 100 mg Cap) 1 Capsules By Mouth 2 times a day Venous stasis ulcer Refills: 1 Pickup at [facility]\.br\ Unchanged amlodipine (amLODIPine 5 mg Tab) 1 [...] Misc Prescription (Test strips) See instructions Dx: .9 Directions: BID \.br\ Unchanged multivitamin (Multi Vitamins [...] Mouth Every day\.br\ Pharmacy Information\.br\ [id number]: [address] [place], [place] [id number] [phone] - 2011\.br\ Medications and Immunizations Administered\.br\ Not Given\.br\ influenza virus vaccine, inactivated, Patient Refuses\.br\ Allergies\.br\ Aldactazide (Hives)\.br\ Cardura (Unknown)\.br\ Diovan (Unknown)\.br\ Glucophage\.br\ Hytrin\.br\ Prinivil\.br\ Zestril (Diarrhea)\.br\ hydrochlorothiazi de-lisinopril (Diarrhea)\.br\ Problems\.br\ Ongoing - Any problem that you are currently receiving treatment for.\.br\ BRBPR (bright red blood per rectum)\.br\ Breast cancer screening by mammogram\.br\ 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 \.br\ Take or apply qgrb-xsc-xitbbty and prescription medicines only as told by [...] cannot use soap and water, use hand flight operations coordinator.\.br\ ? \.br\ Change your bandage as told [...] david Elkins [facility]/Jeromy Parr 12-18-2022 Family Medicine Office/Clinic Note Chief Complaint [...] ER daily. 3. Long-term insulin use (Z79.4: terminal operator (current) use of insulin) Tresiba 50 units [...] (more content not included)... Normal [facility] Comment on above: Result Comment: Elec tronically Signed By: LIBAN SHEPHERD FAAFP, Christopher Montenegro\.br\Date and Time Signed: [...] at home: Medicines ? Take or apply ojzf-rzf-zwauiji and prescription medicines only as told by [...] cannot use soap and water, use hand flight operations coordinator. ? Change your bandage as told by [...] day for signs of infection. ? Take nywf-aih-gimwtmc and prescription medicines only as told by your doctor. ? Keep all follow-up visits as told by your doctor. This is important. This information is not intended to replace advice given to you by your health care provider. Make sure you discuss any questions you have with your health care provider. Document Revised: 12/26/2021 Document Reviewed: 12/26/2021 Elsevier Patient Education ? 2022 [employer] Normal [facility] Consultation Noteon 12-16-19 Consultation Note [id number] 002 [id number]#1.00C D:127 Normal [facility] MRI Spine Lumbar w/o Contras ton 12-09-2022 [...] by: KATEY Technologist: NUBIA Technical Comments None [facility] Consent for Treatmenton 11-15 Consent for Treatment [id number]#1.00C D:127 [facility] RAD - MRI Screening Formon 0 12-08-2022 RAD - MRI Screening Form [id number]#1.00 CD:127 [facility] Physician Orderon 11-26-2022 Physician Order [id number] [id number]#1.00CD :127 [facility] Physician Order [id number]#1.00CD :127 [facility] BD Bone Density DEXAon 11-25 BD [...] WELLS FINAL REPORT Dictated: 11/25/2022 2:37 pm Emmy PIMENTEL, Jalil Jaffe Signed (Electronic Signature): 11/25/2022 2:37 pm Signed by: Jalil Booth MD Transcribed by: KATEY Technologist: TRISTAN Normal [facility] MA Mamm Screen w/CAD if perf and [...] very important to your health. The current [employer] of Radiology and National Comprehensive Cancer [...] Recommendation: Normal interval follow-up Normal [facility] Consent for Treatmenton 11-14 Consent for Treatment [id number] D:127 Normal [facility] Consultation Noteon 11-24-19 Consultation Note [id number] :127 Normal [facility] Consultation Noteon 11-14-19 Consultation Note [id number]#1.00C D:127 Normal [facility]/Clini c Noteon 11-06-2022 Family [...] and some weakness, I take WC to [facility] so I walk and do Wheel Chair. Pain stays in the hip. After walking approximately 10 minutes at [facility] patient needs to get into wheelchair secondary to the pain in her left hip. Patient reports no poor color no radiation of pain into left thigh and nor leg nor foot. Diabetes is now managed per Dr. Ruggiero, her last A1c at Dr. Ruggiero's office was 8.9 and the 1 prior to that was 13. Dr. Oliveira is her solutions executive cloud sales and she believes she sees him [...] refer to orthopedics here at [facility]. Physical therapy [facility]. Patient defers x-rays and well allow access orthopedics to perform at time of evaluation. Discussed possibility of bursitis and possible injection under fluoroscopy via orthopedics Ordered: [facility] External Ambulatory Referral [facility] Evaluate Patient, Develop a Plan of Care, & Implement Plan (more content not included)... Normal [facility] Comment on above: Result Comment: Elec tronically Signed By: LIBAN SHEPHERD FAAFP, Christopher Montenegro\.maria teresa\Date and Time [...] these instructions at home: Medicines ? Take zrqm-edz-fgzhmxu and prescription medicines only as told by [...] provider. Document Revised: 02/25/2022 Document Reviewed: 02/25/2022 [employer] Patient Education ? 2022 [employer] Normal [facility] Physician Referralon 023 Physician Referral [id number] CD:127 Normal [facility] US arterial duplex LE LTon 0 11-04-2022 US arterial duplex [facility] [place] [address] Ultrasound Report Signed Patient: Evon Corcoran MR#: [id number] 844 : 1950 Acct:[id number] Age/Sex: 72 / F ADM Date: 11/04/22 Loc: [facility] Room: Type: [facility] Attending Dr: Renetta Barahona BAG MACHINE OPERATOR HELPER-C Ordering Provider: Renetta Barahona APRN Date of Service: 11/04/22 US/US arterial duplex [facility]: I70.212 Copies to: Renetta Barahona APRN Arterial [...] Miguel Membreno M.D.11/04/2022 1:09 PM Dictation Location: [place] [address] Tech: Adina Zuñiga Transcribed By: RICH 11/04/22 1309 Dictated By: Miguel Membreno MD 11/04/22 1307 Signed By: 11/04/22 1309 [facility] US ankle/arm indiceson 11-03 US ankle/arm indices [facility] [address] [place] [address] [place] [address] Ultrasound Report Signed Patient: Evon Corcoran MR#: [id number] 844 : 1950 Acct:[id number] Age/Sex: 72 / F ADM Date: 11/03/22 Loc: [facility] Room: Type: [facility] Attending Dr: Miguel Membreno MD Ordering [...] Miguel Membreno M.D.11/03/2022 10:26 AM Dictation Location: [place] [address] Tech: Melita Pike Transcribed By: RICH 11/03/22 1026 Dictated By: Miguel Membreno MD 11/03/22 1024 Signed By: 11/03/22 1026 [facility] CHEMISTRYOrdered By: SYSTEM SYSTEM on [...] rate/Area] 43 mL/min/1.73 m2 Low >=59mL/min/1.73 m2 [facility] Chem S Glucose [Mass/Vol] 316 mg/dL High [...] [Mass fraction] 8.4 mg/dL Invalid Interpretation Code [facility] Remisol Creatinine (U) [Mass/Vol] 132.6 mg/dL Invalid Interpretation Code [facility] Remisol U Prot/Creat Ratio 63.30 mg/gm Cr Normal 0.00 - 200.00 mg/gm Cr [facility] Remisol Consent for Treatmenton 10-14 Consent for Treatment [id number] D:127 Normal [facility] Physician Orderon 10-31-2022 Physician Order [id number]#1.00 CD:127 Normal [facility] Renal Panelon 10-31-2022 Albumin [Mass/Vol] 3.4 g/dL Normal 3.3-5.0 [facility] Comment on above: Performed By: #### 1 [id number], [id number] #### [facility] [address] [place] [address] Anion gap [Moles/Vol] 11 mmol/L Normal 6-16 [facility] Comment on above: Performed By: #### 1 [id number], [id number] #### [facility] [address] [place] [address] Calcium [Mass/Vol] 8.4 mg/dL Low 8.9-11.1 [facility] Comment on above: Performed By: #### 1 [id number], [id number] #### [facility] [address] [place] [address] Chloride [Moles/Vol] 104 mmol/L Normal 101-111 [facility] Comment on above: Performed By: #### 1 [id number], [id number] #### [facility] [address] [place] [address] CO2 [Moles/Vol] 27 mmol/L Normal 21-31 [facility] Comment on above: Performed By: #### 1 [id number], [id number] #### [facility] [address] [place] [address] Creatinine [Mass/Vol] 1.3 mg/dL Normal 0.5-1.3 [facility] Comment on above: Performed By: #### 1 [id number], [id number] #### [facility] [address] [place] [address] Glucose [Mass/Vol] 316 mg/dL High 55-199 [facility] Comment on above: Result Comment: If t his glucose result represents a fasting glucose, interpretation should refer to the following reference range: 55-99 mg/dL Performed By: #### 1 [id number], [id number] #### [facility] [address] [place] [address] Phosphate [Mass/Vol] 3.8 mg/dL Normal 1.9-4.6 [facility] Comment on above: Performed By: #### 1 [id number], [id number] #### [facility] [address] [place] [address] Potassium [Moles/Vol] 4.2 mmol/L Normal 3.5-5.3 [facility] Comment on above: Performed By: #### 1 [id number], [id number] #### [facility] [address] [place] [address] Sodium [Moles/Vol] 138 mmol/L Normal 135-145 [facility] Comment on above: Performed By: #### 1 [id number], [id number] #### [facility] [address] [place] [address] Urea nitrogen [Mass/Vol] 28 mg/dL High 5-21 [facility] Comment on above: Performed By: #### 1 [id number], [id number] #### [facility] [address] [place] [address] Urea nitrogen/Creatinine [Mass ratio] 22 No Units High 10-20 [facility] Comment on above: Performed By: #### 1 [id number], [id number] #### [facility] [address] [place] [address] U Protein/Creat Ratioon 10-14 Albumin Elph (U) [Mass fraction] 8.4 mg/dL Invalid Interpretation Code [facility] Comment on above: Result Comment: The reference range and other method performance specifications have not been established for this test; results should be integrated into the clinical context for interpretation. Performed By: #### 1 [id number], [id number] ####[facility] [address] [place] [address] Creatinine (U) [Mass/Vol] 132.6 mg/dL Invalid Interpretation Code [facility] Comment on above: Result Comment: The reference range and other method performance specifications have not been established for this test; results should be integrated into the clinical context for interpretation. Performed By: #### 1 [id number], [id number] ####[facility] [address] [place] [address] U Prot/Creat Ratio 63.30 mg/gm Cr Normal .00-200.00 [facility] Comment on above: Performed By: #### 1 [id number], [id number] ####[facility] [address] [place] [address] URINALYSISOrdered By: Rosa Chacon on 10-31-2022 Bacteria LM Ql (Urine sed) 1+ /HPF Invalid Interpretation Code Trace/HPF [facility] UA Auto SS Bilirubin Ql (U) Negative (10/31/22 7:33 AM) Normal Negative [facility] UA Auto SS Clarity (U) Clear (10/31/22 7:33 AM) Normal Clear [facility] UA Auto SS Color (U) Yellow (10/31/22 7:33 AM) Normal Yellow [facility]A Auto SS Epithelial cells.squamous LM.HPF (Urine sed) [#/Area] 0-2 /HPF Normal 0-2/HPF [facility] UA Auto SS Glucose Test strip (U) [Mass/Vol] 2+ *ABN* (10/31/22 7:33 AM) Invalid Interpretation Code Negative [facility] UA Auto SS Hemoglobin Ql (U) Negative (10/31/22 7:33 AM) Normal Negative [facility] UA Auto SS Ketones (U) [Mass/Vol] Negative (10/31/22 7:33 AM) Normal Negative [facility] UA Auto SS Conroy.plasma/Lith ium.RBC (Bld) [Mass ratio] 0-3 /HPF Normal 0-3/HPF [facility] UA Auto SS Nitrite Ql (U) Negative (10/31/22 7:33 AM) Normal Negative [facility] UA Auto SS pH (U) 6.0 *NA* (10/31/22 7:33 AM) Invalid Interpretation Code 5.0 - 9.0 [facility] UA Auto SS Protein (U) [Mass/Vol] Negative (10/31/22 7:33 AM) Normal Negative [facility] UA Auto SS Specific gravity (U) [Rel density] 1.025 *NA* (10/31/22 7:33 AM) Invalid Interpretation Code 1.005 - 1.030 [facility] UA Auto SS UA Spec Desc Clean Catch (10/31/22 7:33 AM) Normal [facility] UA Auto SS Urobilinogen Qn (U) 0.7774446 {Donell'U}/dL Normal 0.0 - 1.0 EU/dL [facility] UA Auto SS WBC Auto Ql (U) 1+ *ABN* (10/31/22 7:33 AM) Invalid Interpretation Code Negative [facility] UA Auto SS WBC LM.HPF (Urine sed) [#/Area] 6-15 /HPF Invalid Interpretation Code 0-5/HPF [facility] UA Auto SS Urinalysison 10-31-2022 Bacteria LM Ql (Urine sed) 1+ /HPF Abnormal Trace [facility] Comment on above: Performed By: #### 1 [id number], [id number] ####[facility] [address] [place] [address] Bilirubin Ql (U) Negative Normal Negative [facility] Comment on above: Performed By: #### 1 [id number], [id number] ####[facility] [address] [place] [address] Clarity (U) CLEAR Normal Clear [facility] Comment on above: Performed By: #### 1 [id number], [id number] ####[facility] [address] [place] [address] Color (U) YELLOW Normal Yellow [facility] Comment on above: Performed By: #### 1 [id number], 35564839 ####[facility] [address] [place] [address] Epithelial cells.squamous LM.HPF (Urine sed) [#/Area] 0-2 Normal 0-2 [facility] Comment on above: Performed By: #### 1 [id number], [id number] ####[facility] [address] [place] [address] Glucose Test strip (U) [Mass/Vol] 2+ Abnormal Negative [facility] Comment on above: Performed By: #### 1 [id number], 58121873 ####[facility] [address] [place] [address] Hemoglobin Ql (U) Negative Normal Negative [facility] Comment on above: Performed By: #### 1 [id number], 39714362 ####[facility] [address] [place] [address] Ketones (U) [Mass/Vol] Negative Normal Negative [facility] Comment on above: Performed By: #### 1 [id number], 30176022 ####[facility] [address] [place] [address] Conroy.plasma/Lith ium.RBC (Bld) [Mass ratio] 0-3 Normal 0-3 [facility] Comment on above: Performed By: #### 1 [id number], 89959289 ####[facility] [address] [place] [address] Nitrite Ql (U) Negative Normal Negative [facility] Comment on above: Performed By: #### 1 [id number], [id number] ####[facility] [address] [place] [address] pH (U) 6.0 [pH] Invalid Interpretation Code 5.0-9.0 [facility] Comment on above: Performed By: #### 1 [id number], 76131522 ####[facility] [address] [place] [address] Protein (U) [Mass/Vol] Negative Normal Negative [facility] Comment on above: Performed By: #### 1 [id number], 99355335 ####[facility] [address] [place] [address] Specific gravity (U) [Rel density] 1.025 Invalid Interpretation Code 1.005-1.030 [facility] Comment on above: Performed By: #### 1 [id number], 66045031 ####[facility] [address] [place] [address] Type of Urine collection method Clean Catch Normal [facility] Comment on above: Performed By: #### 1 [id number], [id number] ####[facility] [address] [place] [address] Urobilinogen Qn (U) 0.2 {Donell'U}/dL Normal 0.0-1.0 [facility] Comment on above: Performed By: #### 1 [id number], 63412635 ####[facility] [address] [place] [address] WBC Auto Ql (U) 1+ Abnormal Negative [facility] Comment on above: Performed By: #### 1 [id number], 45135180 ####[facility] [address] [place] [id number] WBC LM.HPF (Urine sed) [#/Area] 6-15 Abnormal 0-5 [facility] Comment on above: Performed By: #### 1 [id number], 23208366 ####[facility] [address] [place] [address] eGFRon 10-31-2022 GFR/1.73 sq M.predicted among non-blacks MDRD (S/P/Bld) [Vol rate/Area] 43 mL/min/1.73 m2 Low >=59 [facility] Comment on above: Order Comment: Order added by Discern Expert. Result Comment: Electric Container Tester jin kidney disease could be indicated at eGFR's of less than 60 mL/min/1.73m2. Kidney failure is indicated at less than 15 mL/min/1.73m2. Performed By: #### 1 [id number], 13864410 #### [facility] [address] [place] [address] RAD - Ultrasound Reporton RAD - Ultrasound Report [id number]#1.00C D:127 Normal [facility] Retail - Clinical Noteon Retail - Clinical Note [id number]#1.00C D:127 Normal [facility] VASC LAB Carotid Artery Dupl ex Ultrasounon 09-17-2022 VASC LAB Carotid Artery Duplex Ultrasoun [address], [address], [place] [address] Vascular Lab Report Carotid Artery Duplex Ultrasound Patient Name: EVON Linda Physician: [id number] Fariha Guidry MD, [facility] Study Date: 09/17/2022 Referring FARIHA GUIDRY Physician: MRN/PID: [id number] PCP: Christopher Wells DO Accession/Order#: [id number] CC Report to: Date of : 1950 Technologist: PRAVEENA Gender: F Technologist 2: Admission Status: Outpatient Location Performed: [facility] Diagnosis/ICD: M69-Dgicbcyia and giddiness; I73.9-Peripheral vascular disease, unspecified Indication: CAD, PTCA, High Risk Medication Use, Vascular Disease, Diabetes, HTN, Hyperlipidemia, CKD-Stage III, DVT, MORALES, Obesity Procedure/CPT: 17752 Cerebrovascular Carotid Duplex scan complete-29378 CONCLUSIONS: Right Carotid: Findings are consistent with [...] cm/s Right Left ICA/CCA Ratio 1.4 2.0 29370 Fariha Guidry MD, FACC Final Normal [facility] VASC LAB Carotid Artery Dupl ex Ultrasoundon 09-17-2022 US.doppler Carotid arteries -[facility]-Sandu feliz 250 DO Work [...] (bright red blood per rectum) 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 Change in bowel habits Chronic renal impairment, stage 3a Claudication of both lower extremities Colon polyp Diarrhea Familial hypercholesteremia Hemorrhoids History of colon polyps History of DVT (more content not included)... Normal [facility] Comment on above: Result Comment: Elec tronically [...] Bulgur wheat. Millet. Quinoa. Bran muffins. Popcorn. Valencia wafer crackers. Meats and other proteins [place] beans, kidney beans, and chase beans. Soybeans. [...] Cream cheese. Sour cream. Fats and oils Strum. Beverages Soft drinks. Other foods Cakes and [...] (more content not included)... Normal [facility] Medication Refillon 08-23-19 Medication Refill [id number] D:127 Normal [facility] CBC w/Indiceson 08-01-2022 Erythrocyte distribution width (RBC) [Ratio] 14.0 % Normal 10.9-14.2 [facility] Comment on above: Performed By: #### 2 885300, 0247236 #### [facility] [address] [place] [address] Hematocrit (Bld) [Volume fraction] 39.9 % Normal 34.0-46.0 [facility] Comment on above: Performed By: #### 2 227874, 2634116 #### [facility] [address] [place] [address] Hemoglobin (Bld) [Mass/Vol] 12.7 g/dL Normal 12.0-16.0 [facility] Comment on above: Performed By: #### 2 969603, 0016423 #### [facility] [address] [place] [address] MCH (RBC) [Entitic mass] 27.9 pg Normal 27.0-34.0 [facility] Comment on above: Performed By: #### 2 723171, 6879192 #### [facility] [address] [place] [address] MCHC (RBC) [Mass/Vol] 31.8 g/dL Normal 31.4-36.0 [facility] Comment on above: Performed By: #### 2 288119, 0868608 #### [facility] [address] [place] [address] MCV (RBC) [Entitic vol] 87.6 fL Normal 80.0-100.0 [facility] Comment on above: Performed By: #### 2 970776, 3008977 #### [facility] [address] [place] [address] Platelet mean volume (Bld) [Entitic vol] 10.5 fL Normal 6.4-10.8 [facility] Comment on above: Performed By: #### 2 282859, 5673635 #### [facility] [address] [place] [address] Platelets (Bld) [#/Vol] 227.0 E9/L Normal 150.0-500.0 [facility] Comment on above: Performed By: #### 2 356080, 8688531 #### [facility] [address] [place] [address] RBC (Bld) [#/Vol] 4.6 E12/L Normal 4.3-5.9 [facility] Comment on above: Performed By: #### 2 521053, 2272447 #### [facility] [address] [place] [address] WBC corrected for nucl RBC Auto (Bld) [#/Vol] 7.3 E9/L Normal 4.0-11.0 [facility] Comment on above: Performed By: #### 2 952001, 7726808 #### [facility] [address] [place] [address] Consent for Treatmenton 07-14 Consent for Treatment [id number]#1.00C D:127 Normal [facility] Lipid Panelon 08-01-2022 Cholesterol [Mass/Vol] 128 mg/dL Normal 120-200 [facility] Comment on above: Performed By: #### 2 630501, 6486213 #### [facility] [address] [place] [address] Cholesterol in HDL [Mass/Vol] 47 mg/dL Invalid Interpretation Code [facility] Comment on above: Result Comment: HDL > or equal to 60 mg/dL: Low cardiovascular risk HDL < 40 mg/dL : High cardiovascular risk Performed By: #### 2 630024, 3235236 #### [facility] [address] [place] [address] Cholesterol in LDL [Mass/Vol] 59 mg/dL Normal <=129 [facility] Comment on above: Performed By: #### 2 050877, 3262029 #### [facility] [address] [place] [address] Cholesterol in VLDL [Mass/Vol] 27 mg/dL Normal 7-40 [facility] Comment on above: Performed By: #### 2 625580, 5945246 #### [facility] [address] [place] [address] Triglyceride [Mass/Vol] 133 mg/dL Normal <=149 [facility] Comment on above: Performed By: #### 2 539538, 3946113 #### [facility] [address] [place] [address] Physician Orderon 08-01-2022 Physician Order [id number]#1.00 CD:127 Normal [facility] MICRO OTHER TESTSOrdered By: Cynthia Case on 05-08-2022 Fecal WBC Lactoferrin Negative (05/08/22 9:00 AM) Normal Negative [facility] Man Sero Blood Urea Nitrogenon 2022 Urea nitrogen [Mass/Vol] 30 mg/dL High 12-06 [facility] Comment on above: Performed By: #### C REMAY, BUN #### [facility] [address] [place] [address] [place] Creatinineon 04-07-2022 Creatinine [Mass/Vol] 1.21 mg/dL High 0.44-1.03 [facility] Comment on above: Performed By: #### C REAT, BUN #### [facility] [address] [place] [address] [place] Creatinine Clr Calc Pharmacy 46.76 Normal [facility] Comment on above: Result Comment: PERF ORMED BY: [place] [address] PATHOLOGIST SKIMMER SCOOP OPERATOR AIRAM ROMEO M.D. Performed By: #### C REAT, BUN #### [facility] [address] [place] [id number] [place] Estimated GFR ( Laura 53 Normal [facility] Comment on above: Result Comment: GFR estimated reference range: According to KDOQI guidelines, <60 ml/min/1.73m2 is sufficient to diagnose a patient with chronic kidney disease. Performed By: #### C REAT, BUN #### [facility] [address] [place] [id number] [place] Estimated GFR (Non- Am 44 Normal [facility] Comment on above: Performed By: #### C REAT, BUN #### [facility] [address] [place] [id number] [place] Creatinine and Glomerular fi ltration rate.predicted panel (S/P/Bld)Ordered By: Miguel Membreno on 04-07-2022 Creatinine [Mass/Vol] 1.21 mg/dL 0.44-1.03 [facility] Estimated glomerular filtrat ion rate (GFR) non- AmericanOrdered By: Miguel Membreno on 04-07-2022 GFR/1.73 sq M.predicted among non-blacks MDRD (S/P/Bld) [Vol rate/Area] 44 mL/Min [facility] No Panel InformationOrdered By: Miguel Membreno on 04-07-2022 Estimated GFR () 53 mL/Min [facility] Comment on above: GFR estimated refere nce range: According to KDOQI guidelines, <60 ml/min/1.73m2 is sufficient to diagnose a patient with chronic kidney disease. Pharmacy Creatinine Clearance (Chem 46.76 [facility] Serum or plasma urea nitroge n measurement (mass/volume)Ordered By: Miguel Membreno on 04-07-2022 Urea nitrogen [Mass/Vol] 30 mg/dL 12-06 [facility] CHEMISTRYOrdered By: SYSTEM SYSTEM on 03-31-2022 Albumin [Mass/Vol] 3.7 g/dL Normal 3.3 - 5.0 gm/dL [facility] Remisol Anion gap [Moles/Vol] 16 mmol/L Normal 6 - 16 mEq/L [facility] Remisol Calcium [Mass/Vol] 8.8 mg/dL Low 8.9 - 11.1 mg/dL FT Remisol Chloride [Moles/Vol] 103 mmol/L Normal 101 - 111 mmol/L [facility] Remisol CO2 [Moles/Vol] 25 mmol/L Normal 21 - 31 mmol/L [facility] Remisol Creatinine [Mass/Vol] 1.4 mg/dL High 0.5 - 1.3 mg/dL [facility] Remisol GFR/1.73 sq M.predicted among blacks MDRD (S/P/Bld) [Vol rate/Area] 45 mL/min/1.73 m2 Low >=59mL/min/1.73 m2 [facility] Chem S GFR/1.73 sq M.predicted among non-blacks MDRD (S/P/Bld) [Vol rate/Area] 37 mL/min/1.73 m2 Low >=59mL/min/1.73 m2 [facility] Chem S Glucose [Mass/Vol] 203 mg/dL High 55 - 199 mg/dL [facility] Remisol Magnesium [Mass/Vol] 2.1 mg/dL Normal 1.3 - 2.4 mg/dL [facility] Remisol Phosphate [Mass/Vol] 4.7 mg/dL High 1.9 - 4.6 mg/dL [facility] Remisol Potassium [Moles/Vol] 3.8 mmol/L Normal 3.5 - 5.3 mmol/L [facility] Remisol Sodium [Moles/Vol] 140 mmol/L Normal 135 - 145 mmol/L [facility] Remisol Urea nitrogen [Mass/Vol] 29 mg/dL High 5 - 21 mg/dL [facility] Remisol Urea nitrogen/Creatinine [Mass ratio] 21 mg/mg High 10 - 20 [facility] Remisol CHEMISTRYOrdered By: Genaro Rivera on 03-31-2022 Albumin Elph (U) [Mass fraction] mg/dL Invalid Interpretation Code [facility] Remisol Creatinine (U) [Mass/Vol] 95.7 mg/dL Invalid Interpretation Code [facility] Remisol U Prot/Creat Ratio [facility] Invalid Interpretation Code 0.00 - 200.00 [facility] Remisol HEMATOLOGYOrdered By: Chai Reid on 03-31-2022 Hematocrit (Bld) [Volume fraction] 39.5 % Normal 34.0 - 46.0 % [facility] HemeAutoSS Hemoglobin (Bld) [Mass/Vol] 12.6 g/dL Normal 12.0 - 16.0 gm/dL [facility] HemeAuto[facility] Reference Laboratory Testing Ordered By: Angelica Casas on 01-16-2023 Test Code 411038 Invalid Interpretation Code [facility] Test Code 366828 Invalid Interpretation Code [facility] SendOutsSS Test Name MPO AB Invalid Interpretation Code [facility] SendOut[facility] Test Name PR3 AB Invalid Interpretation Code [facility] URINALYSISOrdered By: Elizabeth Rosas on 03-31-2022 Bilirubin [...] AM) Normal Negative [facility] UA Auto SS Conroy.plasma/Lith ium.RBC (Bld) [Mass ratio] 0-3 /HPF Normal [...] [facility] UA Auto SS Urobilinogen Qn (U) [id number] {Donell'U}/dL Normal 0.0 - 1.0 EU/dL [facility] UA Auto SS WBC Auto Ql (U) Negative (03/31/22 7:43 AM) Normal Negative [facility] UA Auto SS WBC LM.HPF (Urine sed) [#/Area] 0-5 /HPF Normal 0-5/HPF [facility] UA Auto SS US ankle/arm indiceson 03-31 US ankle/arm indices [facility] Main [place] [address] [place] [id number] Ultrasound Report Signed Patient: Evon Corcoran MR#: [id number] : 1950 Acct:[id number] Age/Sex: 71 / F ADM Date: 03/31/22 Loc: [facility] Room: Type: [facility] Attending Dr: Miguel Membreno MD Ordering [...] Miguel Membreno M.D.03/31/2022 3:38 PM Dictation Location: [place] [address] Tech: Christy Florian Transcribed By: RICH 03/31/22 153 Dictated By: Miguel Membreno MD 03/31/22 153 Signed By: 03/31/22 153 [facility] CHEMISTRYOrdered By: Jenni Lazaro on 02-12-2022 HbA1c (Bld) [Mass fraction] 9.3 % High <=5.9% [facility] ChemAutoSS Office Visit (Cardiology)on 01-15-2022 Follow-up visit Diagnoses/Problems Assessed Atherosclerosis of viejas coronary artery of viejas heart without angina pectoris (414.01) (I25.10) Status [...] vein thrombosis (453.40) (I82.409) Orders Atherosclerosis of viejas coronary artery of viejas heart without angina pectoris Renew: Aspirin EC [...] complications. 5. Diabetes, managed by endocrinology in [place]. A1c remains above target 6. Hypertension completely under control. 7. High-risk medication with Xarelto, so far well-tolerated. Takes baby aspirin twice weekly 8. Stage III chronic kidney disease to be monitored closely 9. Recent diagnosis of intermittent claudications and PAD followed by vascular surgery Dr. Daniel in [place], she is currently going through walking exercise program Fariha Guidry MD, [facility] Current Meds Medication NameInstruction amLODIPine Besylate 5 [...] and no (more content not included)... Normal [employer] Tobacco Screening.on 022 Fall risk assessment a) No falls within the last year -[facility] [employer] 600 DO Work Phone: Tobacco use status CP b) No [facility] [employer] 600 DO Work Phone: CHEMISTRYOrdered By: Lab ROP User on 01-06-2022 POC User ID [id number] Invalid Interpretation Code [facility] POC Subsection POC User ID [id number] Invalid Interpretation Code FT POC Subsection POC Username ROXANA MILES Invalid Interpretation Code [facility] POC Subsection POC Username ROSSY ZEPEDA Invalid Interpretation Code [facility] POC Subsection Laboratory - Chemistry and C hemistry - challengeOrdered By: Lab ROPUser on 01-06-2022 Glucose [Mass/Vol] 166 mg/dL High 55 - 99 mg/dL FTM C POC Subsection Comment on above: Result Comment: Rain evert Meter No Panel InformationOrdered By: Lab ROPUser on 01-06-2022 POC Device SN [id number] Invalid Interpretation Code FT POC Subsection CHEMISTRYOrdered By: Lab ROP User on 01-01-2022 Glucose [Mass/Vol] 185 mg/dL High 55 - 99 mg/dL FTM C POC Subsection Comment on above: Result Comment: Rain evert Meter POC Device SN [id number] Invalid Interpretation Code FT POC Subsection POC User ID [id number] Invalid Interpretation Code FT POC Subsection POC Username ROXANA IMLES Invalid Interpretation Code [facility] POC Subsection CHEMISTRYOrdered By: SYSTEM SYSTEM on 09-24-2021 Albumin [...] 3.8 g/dL Normal 1.4 - 4.0 gm/dL [facility] Remisol Glucose [Mass/Vol] 153 mg/dL Normal 55 - 199 mg/dL [facility] Remisol Protein [Mass/Vol] 7.3 g/dL Normal 6.0 - 7.8 gm/dL [facility] Remisol Sodium [Moles/Vol] 138 mmol/L Normal 135 - 145 mmol/L [facility] Remisol Triglyceride [Mass/Vol] 116 mg/dL Normal <=149mg/dL [facility] Remisol Urea nitrogen [Mass/Vol] 22 mg/dL High 5 - 21 mg/dL [facility] Remisol Urea nitrogen/Creatinine [Mass ratio] 18 mg/mg Normal 10 - 20 [facility] Remisol CHEMISTRYOrdered By: Chiquita Zapata on 09-24-2021 Albumin DL <= 20 mg/L (U) [Mass/Vol] 15.8 microgram/mL Normal 0.0 - 19.0 mcg/mL [facility] Remisol ALT No additional P-5'-P [Catalytic activity/Vol] 39 [iU]/d Normal 6 - 46 Int._Unit/L [facility] Chem S AST [Catalytic activity/Vol] 43 [iU]/d Normal 5 - 43 Int._Unit/L [facility] Chem S Bilirubin [Mass/Vol] 1.3 mg/dL High 0.0 - 1.1 mg/dL [facility] Chem S Bilirubin.direct [Mass/Vol] 0.4 mg/dL Normal 0.1 - 0.4 mg/dL [facility] Chem S Potassium [Moles/Vol] 4.9 mmol/L Normal 3.5 - 5.3 mmol/L [facility] Chem S CHEMISTRYOrdered By: Kevin rick on 09-24-2021 HbA1c (Bld) [Mass fraction] 13.1 % High <=5.9% [facility] ChemAutoSS HEMATOLOGYOrdered By: SYSTEM SYSTEM on 09-24-2021 Basophils/100 WBC (Bld) 0.8 % Normal 0.0 - 2.0 % [facility] HemeAutoSS Basophils/Leukocyte s Auto (Bld) [Pure # fraction] 0.1 E9/L Normal 0.0 - 0.2 E9/L [facility] HemeAutoSS Eosinophils/100 WBC (Bld) 3.2 % Normal 0.0 - 8.0 % [facility] HemeAutoSS Eosinophils/Leukocy bev Auto (Bld) [Pure # fraction] 0.2 E9/L Normal 0.0 - 0.5 E9/L [facility] HemeAutoSS Lymphocytes/100 WBC (Bld) 17.3 % Normal 14.0 - 50.0 % [facility]eAutoSS Lymphocytes/Leukocy bev Auto (Bld) [Pure # [...] 5.5 E9/L Normal 2.0 - 7.5 E9/L FT HemeAutoSS HEMATOLOGYOrdered By: Kevin titus on 09-24-2021 Erythrocyte distribution width (RBC) [Ratio] 13.4 % Normal 10.9 - 14.2 % [facility] HemeAutoSS Hematocrit (Bld) [Volume fraction] 37.7 % Normal 34.0 - 46.0 % [facility] HemeAutoSS Hemoglobin (Bld) [Mass/Vol] 12.6 g/dL Normal 12.0 - 16.0 gm/dL FT HemeAutoSS MCH (RBC) [Entitic mass] 29.3 pg [...] a) No falls within the last year [facility] loly 600 DO Work Phone: Heart Rate Regular [facility] 600 DO Work Phone: Office Visit (Cardiology)on [...] Vital Signs Recorded: 28May2021 12:25PMRecorded: 28May2021 12:21PM Nmtbsvgd862, LUE, Wgfzyxt481, RUE, Sitting Tkwdphzja75, LUE, Onkszlu92, RUE, Sitting Heart Rate68, R Radial Pulse QualityRegular, R Radial Height5 ft 5 in Zsxckz643 lb 3.2 oz BMI Hytisqetnn91.98 kg/m2 BSA Calculated2 Fall Screeninga) No falls within the last year Signatures Electronically signed by : Fariha Guidry MD; May 28 2021 3:34PM EST (Author) Normal [employer] Laboratory - Chemistry and C hemistry - challengeon 05-11-2021 Cholesterol [Mass/Vol] 96 mg/dL Normal <=129 [facility] [employer] DO Work Phone: Cholesterol in LDL [Mass/Vol] 39 mg/dL Normal 7-40 [facility] [employer] DO Work Phone: CO2 [Moles/Vol] 24 mmol/L Normal 21-31 [facility] [employer] DO Work Phone: Glucose [Mass/Vol] 217 mg/dL above high threshold 55-199 [facility] [employer] [facility] [employer] DO Work Phone: Comment on above: If this glucose resu lt represents a fasting glucose, interpretation should refer to the following reference range: 55-99 mg/dL Laboratory - Hematology and Cell countson 05-11-2021 Erythrocyte distribution width (RBC) [Ratio] 13.2 % Normal 10.9-14.2 [facility] [employer] DO Work Phone: Hematocrit (Bld) [Volume fraction] 39.5 % Normal 34.0-46.0 [facility] [employer] DO Work Phone: Platelet mean volume (Bld) [Entitic vol] 11.0 fL above high threshold 6.4-10.8 [facility] [employer] feliz 250 DO Work Phone: No Panel Informationon 05-11 14 {mEq/L} Normal 6-16 [facility] [employer] feliz 250 DO Work Phone: 102 mmol/L Normal 101-111 [facility] feliz 250 DO Work Phone: 4.2 mmol/L Normal 3.5-5.3 [facility] [employer] feliz 250 DO Work Phone: 136 mmol/L Normal 135-145 [facility] feliz 250 DO Work Phone: 8.9 mg/dL Normal 8.9-11.1 [facility] feliz 250 DO Work Phone: 25 {No_Units} above high threshold 10-20 [facility] [employer] efliz 250 DO Work Phone: 1.0 mg/dL Normal 0.5-1.3 [facility] feliz 250 DO Work Phone: 25 mg/dL above high threshold 5-21 [facility] [employer] feliz 250 DO Work Phone: >60 Normal >=59 [facility] feliz 250 DO Work Phone: Comment on above: eGFR is race adjuste d. AA=. 55 {mL/min/1.73_m2} below low threshold >=59 [facility] [employer] feliz 250 DO Work Phone: Comment on above: Chronic kidney disea se could be indicated at eGFR's of less than 60 mL/min/1.73m2. Kidney failure is indicated at less than 15 mL/min/1.73m2. 54 {Int._Unit/L} above high threshold 6-46 [facility] [employer] feliz 250 DO Work Phone: 67 {Int._Unit/L} above high threshold 5-43 [facility] [employer] feliz 250 DO Work Phone: 197 mg/dL above high threshold <=149 [facility] feliz 250 DO Work Phone: 49 mg/dL [facility] feliz 250 DO Work Phone: Comment on above: HDL > or equal to 60 mg/dL: Low cardiovascular riskHDL < 40 mg/dL : High cardiovascular risk 193 mg/dL Normal 120-200 [facility] [employer] feliz 250 DO Work Phone: 229.0 {E9/L} Normal 150.0-500.0 [facility] [employer] feliz 250 DO Work Phone: Comment on above: Slide reviewed by BR Platelet count verified using smear estimate. 85.4 fL Normal 80.0-100.0 [facility] feliz 250 DO Work Phone: 33.5 {gm/dL} Normal 31.4-36.0 [facility] 250 DO Work Phone: 28.7 pg Normal 27.0-34.0 [facility] 250 DO Work Phone: 13.2 {gm/dL} Normal 12.0-16.0 [facility] 250 DO Work Phone: 4.6 {E12/L} Normal 4.3-5.9 [facility] feliz 250 DO Work Phone: 6.7 {E9/L} Normal 4.0-11.0 [facility] 250 DO Work Phone: Office Visit (Cardiology)on 05-08-2021 Follow-up visit Diagnoses/Problems Assessed Atherosclerosis of viejas coronary artery of viejas heart without angina pectoris (414.01) (I25.10) Chronic kidney disease, stage 3 (585.3) (N18.30) Deep vein thrombosis (453.40) (I82.409) Essential hypertension (401.9) (I10) High risk medication use (V58.69) (Z79.899) Hyperlipidemia (272.4) (E78.5) Status post coronary angioplasty (V45.82) (Z98.61) Never a smoker Class 1 obesity with body mass index (BMI) of 34.0 to 34.9 in adult (278.00,V85.34) (E66.9,Z68.34) Orders Atherosclerosis of viejas coronary artery of viejas heart without angina pectoris Renew: Aspirin EC 81 MG Oral Tablet Delayed Release; TAKE ONE TABLET THURSDAY AND THURSDAY Renew: Losartan Potassium 50 MG Oral Tablet; TAKE 1 TABLET TWICE DAILY Atherosclerosis of viejas coronary artery of viejas heart without angina pectoris, Chronic kidney disease, stage 3, High risk medication use Basic Metabolic Panel; Status:Active - Retrospective Authorization; Requested for:[id number]; Complete Blood Count; Status:Active - Retrospective Authorization; Requested for:[id number]; Atherosclerosis of viejas coronary artery of viejas heart without angina pectoris, Essential hypertension Renew: Metoprolol Succinate ER 50 MG Oral Tablet Extended Release 24 Hour; TAKE 1 TABLET Daily Atherosclerosis of viejas coronary artery of viejas heart without angina pectoris, Hyperlipidemia ALT - Alanine Aminotransferase, Serum; Status:Active - Retrospective Authorization; Requested for:[id number]; AST; Status:Active - Retrospective Authorization; Requested for:[id number]; Lipid Panel; Status:Active - Retrospective Authorization; Requested for:[id number]; Class 1 obesity with body mass index (BMI) of 34.0 to 34.9 in adult Healthy Weight Tips; Status:Complete - Retrospective Authorization; Done: [id number] Deep vein thrombosis Start: Xarelto 10 MG Oral Tablet; Take 1 tablet daily Essential hypertension Start: amLODIPine Besylate 5 MG Oral Tablet (Norvasc); TAKE 1 TABLET DAILY SocHx: Never a smoker Tobacco Use Screening; Status:Complete; Done: [id number] Unlinked Stop: Xarelto 20 MG Oral Tablet Patient Instructions By signing my name below, Saloni Styles Lpn, Scribe, attest that this documentation has been prepared under the direction and in the presence of /hmi. All medical record entries made by the Scrib[employer] were at my direction and personally dictated [...] to be monitored closely Fariha Guidry MD, [facility] Surgical History Problems History of Angioplasty History of Cholecystectomy History of Colonoscopy History of Hysterectomy Past Medical History Problems History of angina pectoris (V12. (more content not included)... Normal [employer] Tobacco Screening.on 022 Adult depression screening assessment No [facility] Satnam piper 250 DO Work Phone: Fall risk assessment a) No falls within the last year [facility] Satnam piper 250 DO Work Phone: Tobacco use status CPHS b) No [facility] Satnam piper 250 DO Work Phone: Social History Date Type Detail Facility Start: 02-12-2023 End: 08-27-2023 Never a smoker Never a smoker [facility] Nikia 250 DO Work Phone: Start: 02-12-2023 End: 08-27-2023 Sex Assigned At Female [facility] Start: 02-12-2023 Tobacco use and exposure Smokeless tobacco non-user [facility] Work Phone: Start: 02-12-2023 End: 08-27-2023 Alcohol intake Current drinker of alcohol (finding) [facility] Work Phone: Start: 02-12-2023 Alcohol Comment social [facility] Work Phone: Start: 02-02-2023 End: 08-27-2023 Exposure to SARS-CoV-2 (event) Not sure [facility] Start: 12-10-2020 End: 02-12-2023 Tobacco smoking status Never smoked tobacco (finding) [facility] Comment on above: denies use Start: 1950 Sex Assigned At Female [facility] Start: 1950 Sex Assigned At Not on file [facility] Work Phone: Tobacco smoking status Never [facility] Comment on above: denies use Vital Signs Date Time Vital Sign Value Performing Clinician Facility 08-27-2023 09:35-0400 Diastolic blood pressure 68 mm[Hg] Fariha Guidry MD Work Phone: [facility] 08-27-2023 09:35-0400 Systolic blood pressure 134 mm[Hg] Fariha Guidry MD Work Phone: [facility] 08-27-2023 09:06-0400 Body height 165.1 cm Fariha Guidry MD Work Phone: [facility] 08-27-2023 09:06-0400 Body mass index (BMI) [Ratio] 35.94 kg/m2 Fariha Guidry MD Work Phone: [facility] 08-27-2023 09:06-0400 Body weight 97.98 kg Fariha Guidry MD Work Phone: [facility] 08-27-2023 09:06-0400 Heart rate 60 /min Fariha Guidry MD Work Phone: [facility] 07-28-2023 07:55-0400 Blood Pressure Location Christopher KAPLE [facility] 07-28-2023 07:55-0400 Body temperature 97.52 [degF] Christopher KAPLE [facility] 07-28-2023 07:55-0400 Diastolic blood pressure 70 mm[Hg] Christopher KAPLE [facility] 07-28-2023 07:55-0400 Heart rate 66 /min Christopher KAPLE [facility] 07-28-2023 07:55-0400 SaO2% (BldA) [Mass fraction] 97 % Christopher KAPLE [facility] 07-28-2023 07:55-0400 Systolic blood pressure 140 mm[Hg] Christopher KAPLE [facility] 06-09-2023 09:44-0400 Body height 165.1 cm [facility] 06-09-2023 09:44-0400 Body mass index (BMI) [Ratio] 33.3 kg/m2 [facility] 06-09-2023 09:44-0400 Body temperature 96.4 [degF] [facility] 06-09-2023 09:44-0400 Body weight 90.71 kg [facility] 06-09-2023 09:44-0400 Diastolic blood pressure 76 mm[Hg] [facility] 06-09-2023 09:44-0400 Heart rate 69 /min [facility] 06-09-2023 09:44-0400 SaO2% (BldA) [Mass fraction] 97 % [facility] 06-09-2023 09:44-0400 Systolic blood pressure 152 mm[Hg] [facility] 04-10-2023 09:19-0500 Body temperature 98.42 [degF] [facility] 04-10-2023 09:19-0500 Diastolic blood pressure 68 mm[Hg] [facility] 04-10-2023 09:19-0500 Heart rate 82 /min [facility] 04-10-2023 09:19-0500 Respiratory rate 16 /min [facility] 04-10-2023 09:19-0500 SaO2% (BldA) [Mass fraction] 97 % [facility] 04-10-2023 09:19-0500 Systolic blood pressure 168 mm[Hg] [facility] 03-20-2023 09:00-0500 Blood Pressure Location Christopher WELLS [facility] 03-20-2023 09:00-0500 Body temperature 98.42 [degF] Christopher WELLS [facility] 03-20-2023 09:00-0500 Diastolic blood pressure 80 mm[Hg] Christopher WELLS [facility] 03-20-2023 09:00-0500 Heart rate 70 /min Christopher WELLS [facility] 03-20-2023 09:00-0500 Respiratory rate 16 /min Christopher WELLS [facility] 03-20-2023 09:00-0500 SaO2% (BldA) [Mass fraction] 99 % Christopher MEJIALE [facility] 03-20-2023 09:00-0500 Systolic blood pressure 132 mm[Hg] Christopher MEJIALE [facility] 03-04-2023 09:09-0500 Heart rate 80 /min Nicola Willie [facility] 03-04-2023 09:09-0500 SaO2% (BldA) [Mass fraction] 99 % Nicola Tapia [facility] 03-04-2023 09:09-0500 Diastolic blood pressure 67 mm[Hg] Nicola Tapia [facility] 03-04-2023 09:09-0500 Mean blood pressure 91 mm[Hg] Nicola Tapia [facility] 03-04-2023 09:09-0500 Systolic blood pressure 138 mm[Hg] Nicola Tapia [facility] 03-04-2023 09:09-0500 Respiratory rate 16 /min Nicola Tapia [facility] 03-04-2023 09:04-0500 Diastolic blood pressure 96 mm[Hg] Nicola Tapia [facility] 03-04-2023 09:04-0500 Heart rate 84 /min Nicola Tapia [facility] 03-04-2023 09:04-0500 SaO2% (BldA) [Mass fraction] 98 % Nicola Tapia [facility] 03-04-2023 09:04-0500 Systolic blood pressure 165 mm[Hg] Nicola Tapia [facility] 03-04-2023 08:12-0500 Heart rate 82 /min Nicola Tapia [facility] 03-04-2023 08:12-0500 SaO2% (BldA) [Mass fraction] 97 % Nicola Tapia [facility] 03-04-2023 08:12-0500 Diastolic blood pressure 75 mm[Hg] Nicola Tapia [facility] 03-04-2023 08:12-0500 Mean blood pressure 103 mm[Hg] Nicola Tapia [facility] 03-04-2023 08:12-0500 Systolic blood pressure 159 mm[Hg] Nicola Tapia [facility] 03-04-2023 08:12-0500 Body temperature 98.42 [degF] Nicola Tapia [facility] 03-04-2023 08:11-0500 Respiratory rate 14 /min Nicola Tapia [facility] 03-03-2023 11:45-0500 Body height 165.1 cm Miguel Membreno Other [employer] Other 03-03-2023 11:45-0500 Body mass index (BMI) [Ratio] 33.28 kg/m2 Miguel Membreno Other [employer] Other 03-03-2023 11:45-0500 Body temperature 97.8 [degF] Miguel Membreno Other [employer] Other 03-03-2023 11:45-0500 Body weight 90.72 kg Miguel Membreno Other [employer] Other 03-03-2023 11:45-0500 Diastolic blood pressure 72 mm[Hg] Miguel Butcherr Other [employer] Other 03-03-2023 11:45-0500 SaO2% (BldA) [Mass fraction] 96 % Miguel Membreno Other [employer] Other 03-03-2023 11:45-0500 Systolic blood pressure 124 mm[Hg] Miguel Martinezrer Other [employer] Other 02-18-2023 13:40-0500 Diastolic blood pressure 70 mm[Hg] DO Christopher Kaple Work Phone: [facility] 02-18-2023 13:40-0500 Heart rate 64 /min DO Christopher Kaple Work Phone: [facility] 02-18-2023 13:40-0500 Respiratory rate 16 /min DO Christopher Kaple Work Phone: [facility] 02-18-2023 13:40-0500 SaO2% (BldA) [Mass fraction] 98 % DO Christopher Kaple Work Phone: [facility] 02-18-2023 13:40-0500 Systolic blood pressure 169 mm[Hg] DO Christopher Kaple Work Phone: [facility] 02-18-2023 12:40-0500 Inhaled oxygen flow rate 1 L/min DO Christopher Kaple Work Phone: [facility] 02-18-2023 09:15-0500 Body height 165.1 cm DO Christopher Kaple Work Phone: [facility] 02-18-2023 09:15-0500 Body weight 97.52 kg DO Christopher Kaple Work Phone: [facility] 02-16-2023 13:23-0500 Heart rate 76 /min Gary Cerda [facility] 02-16-2023 13:23-0500 SaO2% (BldA) [Mass fraction] 96 % Gary Prashant [facility] 02-16-2023 13:22-0500 Diastolic blood pressure 80 mm[Hg] Gary Prashant [facility] 02-16-2023 13:22-0500 Mean blood pressure 105 mm[Hg] Gary Prashant [facility] 02-16-2023 13:22-0500 Systolic blood pressure 155 mm[Hg] Gary Prashant [facility] 02-16-2023 13:22-0500 Body temperature 97.7 [degF] Gary Cerda [facility] 02-16-2023 13:21-0500 Respiratory rate 16 /min Gary Cerda [facility] 02-12-2023 09:03-0500 Body height 165.1 cm Fariha Guidry MD Work Phone: [facility] 02-12-2023 09:03-0500 Body mass index (BMI) [Ratio] 35.78 kg/m2 Fariha Guidry MD Work Phone: [facility] 02-12-2023 09:03-0500 Body weight 97.52 kg Fariha Guidry MD Work Phone: [facility] 02-12-2023 09:03-0500 Diastolic blood pressure 64 mm[Hg] Fariha Guidry MD Work Phone: [facility] 02-12-2023 09:03-0500 Heart rate 64 /min Fariha Guidry MD Work Phone: [facility] 02-12-2023 09:03-0500 Systolic blood pressure 120 mm[Hg] Fariha Guidry MD Work Phone: [facility] 01-26-2023 08:00-0500 Blood Pressure Location Christopher WELLS [facility] 01-26-2023 08:00-0500 Body temperature 98.6 [degF] Christopher KAPLE [facility] 01-26-2023 08:00-0500 Diastolic blood pressure 72 mm[Hg] Christopher BALE [facility] 01-26-2023 08:00-0500 Heart rate 65 /min Christopher BALE [facility] 01-26-2023 08:00-0500 SaO2% (BldA) [Mass fraction] 96 % Christopher WELLS [facility] 01-26-2023 08:00-0500 Systolic blood pressure 124 mm[Hg] Christopher BALE [facility] 01-06-2023 08:13-0400 Diastolic blood pressure 78 mm[Hg] Gary Prashant [facility] 01-06-2023 08:13-0400 Heart rate 69 /min Gary Prashant [facility] 01-06-2023 08:13-0400 Mean blood pressure 107 mm[Hg] Gary Prashant [facility] 01-06-2023 08:13-0400 Respiratory rate 14 /min Gary Prashant [facility] 01-06-2023 08:13-0400 Systolic blood pressure 166 mm[Hg] Gary Prashant [facility] 01-05-2023 09:15-0400 Body height 165.1 cm Miguel Buehrer Other [employer] Other 01-05-2023 09:15-0400 Body mass index (BMI) [Ratio] 33.28 kg/m2 Miguel Buehrer Other [employer] Other 01-05-2023 09:15-0400 Body temperature 96.3 [degF] Miguel Buehrer Other [employer] Other 01-05-2023 09:15-0400 Body weight 90.72 kg Miguel Buehrer Other [employer] Other 01-05-2023 09:15-0400 Diastolic blood pressure 62 mm[Hg] Miguel Buehrer Other [employer] Other 01-05-2023 09:15-0400 SaO2% (BldA) [Mass fraction] 97 % Miguel Buehrer Other [employer] Other 01-05-2023 09:15-0400 Systolic blood pressure 120 mm[Hg] Miguel Buehrer Other [employer] Other 11-04-2022 12:00-0400 Body height 165.1 cm Miguel Buehrer Other [employer] Other 11-04-2022 12:00-0400 Body mass index (BMI) [Ratio] 33.28 kg/m2 Miguel Buehrer Other [employer] Other 11-04-2022 12:00-0400 Body temperature 97.1 [degF] Miguel Martinezrer Other [employer] Other 11-04-2022 12:00-0400 Body weight 90.72 kg Miguel Martinezrer Other [employer] Other 11-04-2022 12:00-0400 Diastolic blood pressure 70 mm[Hg] Miguel Maiersaudrer Other [employer] Other 11-04-2022 12:00-0400 SaO2% (BldA) [Mass fraction] 95 % Miguel Martinezrer Other [employer] Other 11-04-2022 12:00-0400 Systolic blood pressure 140 mm[Hg] Miguel Martinezrer Other [employer] Other 11-03-2022 10:30-0400 Body height 165.1 cm Renetta Barahona Other [employer] Other 11-03-2022 10:30-0400 Body mass index (BMI) [Ratio] 33.28 kg/m2 Renetta Barahona Other [employer] Other 11-03-2022 10:30-0400 Body temperature 97.6 [degF] Renetta Barahona Other [employer] Other 11-03-2022 10:30-0400 Body weight 90.72 kg Renetta Barahona Other [employer] Other 11-03-2022 10:30-0400 Diastolic blood pressure 76 mm[Hg] Renetta Barahona Other [employer] Other 11-03-2022 10:30-0400 SaO2% (BldA) [Mass fraction] 98 % Renetta Barahona Other [employer] Other 11-03-2022 10:30-0400 Systolic blood pressure 116 mm[Hg] Renetta Barahona Other [employer] Other 09-10-2022 08:12-0400 Blood Pressure Location Lindachris MeltonOsmin [facility] 09-10-2022 08:12-0400 Body temperature 96.8 [degF] Linda Osmin [facility] 09-10-2022 08:12-0400 Diastolic blood pressure 71 mm[Hg] Linda Osmin [facility] 09-10-2022 08:12-0400 Heart rate 56 /min Linda Osmin [facility] 09-10-2022 08:12-0400 Systolic blood pressure 118 mm[Hg] Linda Osmin [facility] 06-11-2022 09:10-0400 Diastolic blood pressure 70 mm[Hg] Linda Osmin [facility] 06-11-2022 09:10-0400 Mean blood pressure 92 mm[Hg] Linda Osmin [facility] 06-11-2022 09:10-0400 Systolic blood pressure 136 mm[Hg] Linda Osmin [facility] 06-11-2022 09:04-0400 Blood Pressure Location Linda Osmin [facility] 06-11-2022 09:04-0400 Body temperature 97.88 [degF] Linda Solorio [facility] 06-11-2022 09:04-0400 Diastolic blood pressure 75 mm[Hg] Linda Solorio [facility] 06-11-2022 09:04-0400 Heart rate 66 /min Linda Solorio [facility] 06-11-2022 09:04-0400 Systolic blood pressure 155 mm[Hg] Linda Solorio [facility] 05-05-2022 09:45-0500 Body height 165.1 cm Miguel Membreno Other [employer] Other 05-05-2022 09:45-0500 Body mass index (BMI) [Ratio] 33.28 kg/m2 Miguel Membreno Other [employer] Other 05-05-2022 09:45-0500 Body temperature 96.2 [degF] Miguel Membreno Other [employer] Other 05-05-2022 09:45-0500 Body weight 90.72 kg Miguel Membreno Other [employer] Other 05-05-2022 09:45-0500 Diastolic blood pressure 60 mm[Hg] Miguel Membreno Other [employer] Other 05-05-2022 09:45-0500 SaO2% (BldA) [Mass fraction] 97 % Miguel Membreno Other [employer] Other 05-05-2022 09:45-0500 Systolic blood pressure 112 mm[Hg] Miguel Membreno Other [facility] [employer] Other 04-07-2022 20:00-0500 Diastolic blood pressure 80 mm[Hg] DO Christopher Kaple Work Phone: [facility] 04-07-2022 20:00-0500 Heart rate 70 /min DO Christopher Kaple Work Phone: [facility] 04-07-2022 20:00-0500 Respiratory rate 18 /min DO Christopher Kaple Work Phone: [facility] 04-07-2022 20:00-0500 SaO2% (BldA) [Mass fraction] 98 % DO Christopher Kaple Work Phone: [facility] 04-07-2022 20:00-0500 Systolic blood pressure 159 mm[Hg] DO Christopher Kaple Work Phone: [facility] 04-07-2022 17:05-0500 Body temperature 98.1 [degF] DO Christopher Kaple Work Phone: [facility] 04-07-2022 16:20-0500 Inhaled oxygen flow rate 2 L/min DO Christopher Kaple Work Phone: [facility] 04-07-2022 13:53-0500 Body height 165.1 cm DO Christopher Kaple Work Phone: [facility] 04-07-2022 13:53-0500 Body weight 90.71 kg DO Christopher Kaple Work Phone: [facility] 03-31-2022 10:15-0500 Body height 165.1 cm Renetta Barahona Other [facility] [employer] Other 03-31-2022 10:15-0500 Body mass index (BMI) [Ratio] 33.28 kg/m2 Renetta Barahona Other [employer] Other 03-31-2022 10:15-0500 Body temperature 98.7 [degF] Renetta Barahona Other [employer] Other 03-31-2022 10:15-0500 Body weight 90.72 kg Renetta Barahona Other [employer] Other 03-31-2022 10:15-0500 Diastolic blood pressure 82 mm[Hg] Renetta Barahona Other [employer] Other 03-31-2022 10:15-0500 SaO2% (BldA) [Mass fraction] 98 % Renetta Barahona Other [employer] Other 03-31-2022 10:15-0500 Systolic blood pressure 136 mm[Hg] Renetta Barahona Other [employer] Other 01-27-2022 12:00-0500 Body height 165.1 cm Miguel Membreno Other [employer] Other 01-27-2022 12:00-0500 Body mass index (BMI) [Ratio] 33.28 kg/m2 Miguel Membreno Other [employer] Other 01-27-2022 12:00-0500 Body temperature 97.7 [degF] Miguel Membreno Other [employer] Other 01-27-2022 12:00-0500 Body weight 90.72 kg Miguel Membreno Other [employer] Other 01-27-2022 12:00-0500 Diastolic blood pressure 70 mm[Hg] Miguel Membreno Other [employer] Other 01-27-2022 12:00-0500 SaO2% (BldA) [Mass fraction] 98 % Miguel Membreno Other [employer] Other 01-27-2022 12:00-0500 Systolic blood pressure 142 mm[Hg] Miguel Membreno Other [employer] Other 01-15-2022 10:29-0400 Body height 165.1 cm Christopher Bale Work Phone: [facility] [employer] [facility] DO Work Phone: 01-15-2022 10:29-0400 Body mass index (BMI) [Ratio] 34.95 kg/m2 Christopher Bale Work Phone: [facility] [employer] [facility] DO Work Phone: 01-15-2022 10:29-0400 Body surface area Derived from formula 2.02 m2 Christopher Bale Work Phone: [facility] [employer] [facility] DO Work Phone: 01-15-2022 10:29-0400 Body weight 95.26 kg Christopher Bale Work Phone: [facility] [employer] 600 DO Work Phone: 01-15-2022 10:29-0400 Diastolic blood pressure 60 mm[Hg] Christopher Bale Work Phone: [facility] [employer] [facility] DO Work Phone: 01-15-2022 10:29-0400 Heart rate 68 /min Christopher Bale Work Phone: [facility] [employer] [facility] DO Work Phone: 01-15-2022 10:29-0400 Systolic blood pressure 116 mm[Hg] Christopher Wells Work Phone: [facility] 600 DO Work Phone: 11-28-2021 15:19-0400 Blood Pressure Location Charis Daniel [facility] 11-28-2021 15:19-0400 Diastolic blood pressure 69 mm[Hg] Charis Fredy [facility] 11-28-2021 15:19-0400 Heart rate 61 /min Charis Fredy [facility] 11-28-2021 15:19-0400 Respiratory rate 18 /min Charis Daniel [facility] 11-28-2021 15:19-0400 SaO2% (BldA) [Mass fraction] 98 % Charis Daniel [facility] 11-28-2021 15:19-0400 Systolic blood pressure 132 mm[Hg] Charis Fredy [facility] 10-28-2021 09:56-0400 Blood Pressure Location Charis Daniel [facility] 10-28-2021 09:56-0400 Diastolic blood pressure 72 mm[Hg] Charis Fredy [facility] 10-28-2021 09:56-0400 Heart rate 76 /min Charis Fredy [facility] 10-28-2021 09:56-0400 SaO2% (BldA) [Mass fraction] 96 % Charis Fredy [facility] 10-28-2021 09:56-0400 Systolic blood pressure 120 mm[Hg] Charis Fredy [facility] 05-28-2021 12:25-0400 Diastolic blood pressure 64 mm[Hg] Christopher Montenegro Kaple Work Phone: [facility] [employer] 600 DO Work Phone: 05-28-2021 12:25-0400 Systolic blood pressure 130 mm[Hg] Christopher Montenegro Kaple Work Phone: [facility] [employer] 600 DO Work Phone: 05-28-2021 12:21-0400 Body height 165.1 cm Christopher Montenegro Kaple Work Phone: [facility] [employer] 600 DO Work Phone: 05-28-2021 12:21-0400 Body mass index (BMI) [Ratio] 33.98 kg/m2 Christopher Montenegro Kaple Work Phone: [facility] [employer] 600 DO Work Phone: 05-28-2021 12:21-0400 Body surface area Derived from formula 2 m2 Christopher Montenegro Kaple Work Phone: [facility] [employer] 600 DO Work Phone: 05-28-2021 12:21-0400 Body weight 92.63 kg Christopher Montenegro Kaple Work Phone: [facility] [employer] 600 DO Work Phone: 05-28-2021 12:21-0400 Diastolic blood pressure 76 mm[Hg] Christopher Montenegro Kaple Work Phone: [facility] [employer] 600 DO Work Phone: 05-28-2021 12:21-0400 Heart rate 68 /min Christopher Montenegro Kaple Work Phone: [facility] [employer] 600 DO Work Phone: 05-28-2021 12:21-0400 Systolic blood pressure 140 mm[Hg] Christopher Bale Work Phone: [facility] 600 DO Work Phone: 05-08-2021 11:36-0500 Diastolic blood pressure 90 mm[Hg] Christopher Bale Work Phone: [facility] 250 DO Work Phone: 05-08-2021 11:36-0500 Systolic blood pressure 180 mm[Hg] Chrsitopher Wells Work Phone: [facility] 250 DO Work Phone: 05-08-2021 11:20-0500 Body height 165.1 cm Christopher Bale Work Phone: [facility] 250 DO Work Phone: 05-08-2021 11:20-0500 Body mass index (BMI) [Ratio] 34.11 kg/m2 Christopher Bale Work Phone: [facility] 250 DO Work Phone: 05-08-2021 11:20-0500 Body surface area Derived from formula 2 m2 Christopher Wells Work Phone: [facility] 250 DO Work Phone: 05-08-2021 11:20-0500 Body weight 92.99 kg Christopher Bale Work Phone: [facility] 250 DO Work Phone: 05-08-2021 11:20-0500 Heart rate 68 /min Christopher Bale Work Phone: [facility] 250 DO Work Phone: 05-08-2021 11:20-0500 Systolic blood pressure 142 mm[Hg] Christopher Wells Work Phone: [facility] 250 DO Work Phone: Functional Status Date Assessment Result Facility 07-28-2023 Functional Status N/A [facility] 04-10-2023 Functional Status N/A [facility] 03-20-2023 Functional Status N/A [facility] 03-04-2023 Functional Status N/A [facility] 02-16-2023 Functional Status N/A [facility] 01-26-2023 Functional Status N/A [facility] 01-06-2023 Functional Status N/A [facility] 09-10-2022 Functional Status N/A [facility] 06-11-2022 Functional Status N/A [facility] 04-07-2022 Functional status Patient at [facility] Work Phone: 11-28-2021 N/A [facility] 10-28-2021 No [facility] Mental Status Date Assessment Result Facility 04-07-2022 Cognitive function Cognitive Sta tus Patient at [facility] Work Phone: Clinical Notes 01-27-2022 to 08-27-2023 Fariha Guidry MD - 08/27/2023 9:10 AM EDTPatient Instructions Note Date & Type Note Facility 08-27-2023 History of Present illness Narrative Subjective Evon Corcoran is a 73 y.o. female Chief Complaint Follow-up HPI Patient is in the office for follow-up for the problems noted below. She continued to have significant claudication in both legs, left more than right that limits her daily activity substantially. She was seen by local vascular surgery and was advised that she is high risk for interventions. I advised the patient that she need to follow-up with tertiary care center for evaluation management and she will be referred to Dr. Corbin at [facility] for intervention. Meanwhile we will continue aggressive modification of risk factor for vascular disease. She denies any angina pectoris, she is non-smoker, she is not compliant with CPAP machine due to intolerance and continues to have symptoms of sleep apnea such as generalized fatigue and sleepiness. Her pressure is under control. She was supposed to be up on her atorvastatin up to 40 mg daily but she has failed to do so. She will increase atorvastatin up to 40 mg daily to achieve lower LDL readings. Lipid profile in couple months will be ordered. Her weight remains above target and class II obesity. This is mostly caused by improper diet and inability to exercise. ASSESSMENT AND PLAN: 1. Coronary artery disease [...] mg daily without any bleeding complications. 5. Type II diabetes, managed by endocrinology in [place]. A1c remains above target, the most recent testing recently was 11, more aggressive diabetes management was recommended and to discuss that with endocrinology. 6. Essential hypertension completely under control. 7. High-risk medication with Xarelto, so far well-tolerated. Takes baby aspirin twice weekly 8. Stage III chronic kidney disease to be monitored closely, she follow with nephrology 9. intermittent claudications and PAD causing severe limitations of physical activities, the problem seems to be mostly in the left side, patient was advised to be evaluated by advanced vascular chief specialist leed at [facility]. She is agreeable. 10. Sleep apnea not consistently using CPAP machine. Encouraged the patient to utilize it daily. Review of Systems All other systems reviewed and are negative. Vitals: 08/27/23 0906 08/27/23 0935 BP: 148/78 134/68 BP Location: Right arm Patient Position: Sitting Pulse: 60 Weight: 98 kg (216 lb) Height: 1.651 m (5' 5 ) Objective Physical Exam Constitutional: Appearance: Normal appearance. HENT: Nose: Nose normal. Neck: Vascular: No carotid bruit. Cardiovascular: Rate and Rhythm: Normal rate. Pulses: Normal pulses. Heart sounds: Normal heart sounds. Pulmonary: Effort: Pulmonary effort is normal. Abdominal: General: Bowel sounds are normal. Palpations: Abdomen is soft. Musculoskeletal: General: Normal range of motion. Cervical back: Normal range of motion. Right lower leg: No edema. Left lower leg: No edema. Skin: General: Skin is warm and dry. Neurological: General: No focal deficit present. Mental Status: She is alert. Psychiatric: Mood and Affect: Mood normal. Behavior: Behavior normal. Thought Content: Thought content normal. Judgment: Judgment normal. Allergies Doxazosin, Hydrochlorothiazide, Lisinopril, Metformin, Spironolacton-hydrochlorothiaz, and Valsartan Current Medications Current Outpatient Medications: aspirin 81 mg EC tablet, Take 1 [...] XL (Toprol-XL) 50 mg 24 hr tablet, take 1 tablet by mouth once daily, Disp: 90 tablet, Rfl: 3 multivitamin tablet, Take 1 tablet by mouth once daily., Disp: , Rfl: nitroglycerin (Nitrostat) 0.4 mg SL tablet, Place 1 tablet (0.4 mg) under the tongue every 5 minutes if needed., Disp: , Rfl: potassium chloride ER (Micro-K) 10 mEq ER capsule, Take 1 capsule (10 mEq) by mouth once daily., Disp: , Rfl: amLODIPine (Norvasc) 5 mg tablet, Take 1 tablet (5 mg) by mouth once daily., Disp: 90 tablet, Rfl: 3 atorvastatin (Lipitor) 40 mg tablet, Take 1 tablet (40 mg) by mouth once daily., Disp: 90 tablet, Rfl: 3 Assessment/Plan 1. Atherosclerosis of viejas coronary artery of viejas heart without angina pectoris Follow Up In Cardiology Lipid Panel Alanine Aminotransferase Aspartate Aminotransferase Follow Up In Cardiology atorvastatin (Lipitor) 40 mg tablet 2. Status post coronary angioplasty Follow Up In Cardiology 3. Essential hypertension Follow Up In Cardiology amLODIPine (Norvasc) 5 mg tablet 4. Hyperlipidemia, unspecified hyperlipidemia type Lipid Panel Alanine Aminotransferase Aspartate Aminotransferase atorvastatin (Lipitor) 40 mg tablet 5. PVD (peripheral vascular disease) ([facility]) Referral to Vascular Medicine 6. Stage 3 chronic kidney disease, unspecified whether stage 3a or 3b CKD (Multi) 7. Sleep apnea, unspecified type 8. BMI 35.0-35.9,adult 9. Never smoked tobacco 10. Claudication, intermittent ([facility]) Scribe Attestation By signing my name below, I, Saloni Freeman LPN, Scribe attest that this documentation has been prepared under the direction and in the presence of Fariha Guidry MD. Provider Attestation - Scribe documentation All medical record entries made by the Scribe were at my direction and personally dictated by me. I have reviewed the chart and agree that the record accurately reflects my personal performance of the history, physical exam, discussion and plan. documented in this encounter [facility] Work Phone: 08-27-2023 Instructions Saloni Benavides LPN - 08/27/2023 9:10 AM EDT Please bring all medicines, vitamins, and herbal supplements with you when you come to the office. Prescriptions will not be filled unless you are compliant with your follow up appointments or have a follow up appointment scheduled as per instruction of your physician. Refills should be requested at the time of your visit. documented in this encounter [facility] Work Phone: 07-28-2023 Hospital Discharge instructions Patient Education 07/28/2023 08:54:05 Chronic Kidney Disease, Adult, [id number] Chronic Kidney Disease, Adult Chronic kidney disease is when lasting damage happens to the kidneys slowly over a long time. The kidneys help to: Make pee (urine). Make hormones. Keep the right amount of fluids and chemicals in the body. Most often, this disease does not go away. You must take steps to help keep the kidney damage from getting worse. If steps are not taken, the kidneys might stop working forever. What are the causes? Diabetes. High blood pressure. Diseases that affect the heart and blood vessels. Other kidney diseases. Diseases of the body's disease-fighting system. A problem with the flow of pee. Infections of the organs that make pee, store it, and take it out of the body. Swelling or irritation of your blood vessels. What increases the risk? Getting older. Having someone in your family who has kidney disease or kidney failure. Having a disease caused by genes. Taking medicines often that harm the kidneys. Being near or having contact with harmful substances. Being very overweight. Using tobacco now or in the past. What are the signs or symptoms? Feeling very tired. Having a swollen face, legs, ankles, or feet. Feeling like you may vomit or vomiting. Not feeling hungry. Being confused or not able to focus. Twitches and cramps in the leg muscles or other muscles. Dry, itchy skin. A taste of metal in your mouth. Making less pee, or making more pee. Shortness of breath. Trouble sleeping. You may also become anemic or get weak bones. Anemic means there is not enough red blood cells or hemoglobin in your blood. You may get symptoms slowly. You may not notice them until the kidney damage gets very bad. How is this treated? Often, there is no cure for this disease. Treatment can help with symptoms and help keep the disease from getting worse. You may need to: Avoid alcohol. Avoid foods that are high in salt, potassium, phosphorous, and protein. Take medicines for symptoms and to help control other conditions. Have dialysis. This treatment gets harmful waste out of your body. Treat other problems that cause your kidney disease or make it worse. Follow these instructions at home: Medicines Take subb-kga-[id number] and prescription medicines only as told by your doctor. Do not take any new medicines, vitamins, or supplements unless your doctor says it is okay. Lifestyle Do not smoke or use any products that contain nicotine or tobacco. If you need help quitting, ask your doctor. If you drink alcohol: ?Limit how much you use to: ?0 1 drink a day for women who are not . ?0 2 drinks a day for men. ?Know how much alcohol is in your drink. In the [place] one drink equals one 12 oz bottle of beer (355 mL), one 5 oz glass of wine (148 mL), or one 1 oz glass of hard liquor (44 mL). Stay at a healthy weight. If you need help losing weight, ask your doctor. General instructions Follow instructions from your doctor about what you cannot eat or drink. Track your blood pressure at home. Tell your doctor about any changes. If you have diabetes, track your blood sugar. Exercise at least 30 minutes a day, 5 days a week. Keep your shots (vaccinations) up to date. Keep all follow-up visits. Where to find more information [employer]: www.aakp.org National Kidney Foundation: www.kidney.org [employer]: www.akfinc.org Life Options: www.lifeoptions.org Kidney School: www.kidneyschool.org Contact a doctor if: Your symptoms get worse. You get new symptoms. Get help right away if: You get symptoms of end-stage kidney disease. These include: ?Headaches. ?Losing feeling in your hands or feet. ?Easy bruising. ?Having hiccups often. ?Chest pain. ?Shortness of breath. ?Lack of menstrual periods, in women. You have a fever. You make less pee than normal. You have pain or you bleed when you pee or poop. These symptoms may be an emergency. Get help right away. Call your local emergency services (911 in the [place] Do not wait to see if the symptoms will go away. Do not drive yourself to the hospital. Summary Chronic kidney disease is when lasting damage happens to the kidneys slowly over a long time. Causes of this disease include diabetes and high blood pressure. Often, there is no cure for this disease. Treatment can help symptoms and help keep the disease from getting worse. Treatment may involve lifestyle changes, medicines, and dialysis. This information is not intended to replace advice given to you by your health care provider. Make sure you discuss any questions you have with your health care provider. Document Revised: 06/06/2020 Document Reviewed: 06/06/2020 [employer] Patient Education 2022 [employer] 07/28/2023 08:54:03 Blood Glucose Monitoring, Adult Blood Glucose Monitoring, Adult Monitoring your blood sugar (glucose) is an important part of managing your diabetes. Blood glucose monitoring involves checking your blood glucose as often as directed and keeping a log or record of your results over time. Checking your blood glucose regularly and keeping a blood glucose log can: Help you and your health care provider adjust your diabetes management plan as needed, including your medicines or insulin. Help you understand how food, exercise, illnesses, and medicines affect your blood glucose. Let you know what your blood glucose is at any time. You can quickly find out if you have low blood glucose (hypoglycemia) or high blood glucose (hyperglycemia). Your health care provider will set individualized treatment goals for you. Your goals will be based on your age, other medical conditions you have, and how you respond to diabetes treatment. Generally, the goal of treatment is to maintain the following blood glucose levels: Before meals (preprandial): 80 130 mg/dL (4.4 7.2 mmol/L). After meals (postprandial): below 180 mg/dL (10 mmol/L). A1C level: less than 7%. Supplies needed: Blood glucose meter. Test strips for your meter. Each meter has its own strips. You must use the strips that came with your meter. A needle to prick your finger (lancet). Do not use a lancet more than one time. A device that holds the lancet (lancing device). A journal or log book to write down your results. How to check your blood glucose Checking your blood glucose 1.Wash your hands for at least 20 seconds with soap and water. 2.Prick the side of your finger (not the tip) with the lancet. Do not use the same finger consecutively. 3.Gently rub the finger until a small drop of blood appears. 4.Follow instructions that come with your meter for inserting the test strip, applying blood to the strip, and using your blood glucose meter. 5.Write down your result and any notes in your log. Using alternative sites Some meters allow you to use areas of your body other than your finger (alternative sites) to test your blood. The most common alternative sites are the forearm, the thigh, and the palm of your hand. Alternative sites may not be as accurate as the fingers because blood flow is slower in those areas. This means that the result you get may be delayed, and it may be different from the result that you would get from your finger. Use the finger only, and do not use alternative sites, if: You think you have hypoglycemia. You sometimes do not know that your blood glucose is getting low (hypoglycemia unawareness). General tips and recommendations Blood glucose log Every time you check your blood glucose, write down your result. Also write down any notes about things that may be affecting your blood glucose, such as your diet and exercise for the day. This information can help you and your health care provider: ?Look for patterns in your blood glucose over time. ?Adjust your diabetes management plan as needed. Check if your meter allows you to download your records to a computer or if there is an raman for the meter. Most glucose meters store a record of glucose readings in the meter. If you have type 1 diabetes: Check your blood glucose 4 or more times a day if you are on intensive insulin therapy with multiple daily injections (MDI) or if you are using an insulin pump. Check your blood glucose: ?Before every meal and snack. ?Before bedtime. Also check your blood glucose: ?If you have symptoms of hypoglycemia. ?After treating low blood glucose. ?Before doing activities that create a risk for injury, like driving or using machinery. ?Before and after exercise. ?Two hours after a meal. ?Occasionally between 2:00 a.m. and 3:00 a.m., as directed. You may need to check your blood glucose more often, 6 10 times per day, if: ?You have diabetes that is not well controlled. ?You are ill. ?You have a history of severe hypoglycemia. ?You have hypoglycemia unawareness. If you have type 2 diabetes: Check your blood glucose 2 or more times a day if you take insulin or other diabetes medicines. Check your blood glucose 4 or more times a day if you are on intensive insulin therapy. Occasionally, you may also need to check your glucose between 2:00 a.m. and 3:00 a.m., as directed. Also check your blood glucose: ?Before and after exercise. ?Before doing activities that create a risk for injury, like driving or using machinery. You may need to check your blood glucose more often if: ?Your medicine is being adjusted. ?Your diabetes is not well controlled. ?You are ill. General tips Make sure you always have your supplies with you. After you use a few boxes of test strips, adjust (calibrate) your blood glucose meter by following instructions that came with your meter. If you have questions or need help, all blood glucose meters have a 24-hour hotline phone number available that you can call. Also contact your health care provider with questions or concerns you may have. Where to find more information The [place] Diabetes Association: www.diabetes.org The Association of Diabetes Care & Education Specialists: www.diabeteseducator.org Contact a health care provider if: Your blood glucose is at or above 240 mg/dL (13.3 mmol/L) for 2 days in a row. You have been sick or have had a fever for 2 days or longer, and you are not getting better. You have any of the following problems for more than 6 hours: ?You cannot eat or drink. ?You have nausea or vomiting. ?You have diarrhea. Get help right away if: Your blood glucose is lower than 54 mg/dL (3 mmol/L). You become confused, or you have trouble thinking clearly. You have difficulty breathing. You have moderate or large ketone levels in your urine. These symptoms may represent a serious problem that is an emergency. Do not wait to see if the symptoms will go away. Get medical help right away. Call your local emergency services (911 in the [place] Do not drive yourself to the hospital. Summary Monitoring your blood glucose is an important part of managing your diabetes. Blood glucose monitoring involves checking your blood glucose as often as directed and keeping a log or record of your results over time. Your health care provider will set individualized treatment goals for you. Your goals will be based on your age, other medical conditions you have, and how you respond to diabetes treatment. Every time you check your blood glucose, write down your result. Also, write down any notes about things that may be affecting your blood glucose, such as your diet and exercise for the day. This information is not intended to replace advice given to you by your health care provider. Make sure you discuss any questions you have with your health care provider. Document Revised: 11/28/2020 Document Reviewed: 11/28/2020 [employer] Patient Education 2022 [employer]. Follow Up Care 03/20/2023 09:36:23 With:LIBAN SHEPHERD FAAFP, CHERISE Estrada, PED Address: [place] [address]- When:Within 3 Month(s) [facility] 04-10-2023 Evaluation + Plan note Extrac beatriz from: Title:ED Note Author:Radhames Suarez PA-C te:04/10/23 Bronchitis (J40: Bronchitis, not specified as acute or chronic) Orders: albuterol, 2 puff(s), Inhalation, q6hr Wheezing, 8.5 gm, Refill(s) 0, [id number], 165, cm, 04/10/23 9:26:00 EST, Height/Length Dosing, 96.9, kg, 04/10/23 9:26:00 EST, Weight Dosing azithromycin, = 1 packet(s), Oral, As Directed, as directed on package labeling, X 5 day(s), # 6 tab(s), Refills(s) 0, Pharmacy: [facility] #[id number], 165, cm, 04/10/23 9:26:00 EST, Height/Length Dosing, 96.9, kg, 04/10/23 9:26:00 EST, Weight Dosing predniSONE, 60 mg = 3 tab(s), Oral, Daily, X 7 day(s), # 21 tab(s), Refills(s) 0, Pharmacy: [facility] #[id number], 165, cm, 04/10/23 9:26:00 EST, Height/Length Dosing, 96.9, kg, 04/10/23 9:26:00 EST, Weight Dosing XR Chest 2 Views Future Appointments Appointment Date:07/28/2023 08:00:00 AM Scheduled Provider:Christopher WELLS DO, FAAFP Location:[facility] Appointment Type: Open Appointment Date:02/01/2024 08:00:00 AM Scheduled Provider: Location:[facility] Appointment Type:FM Medicare Wellness Subsequent Future Scheduled Tests Laboratory* HgbA1c 03/27/22 * HgbA1c 06/25/22 * HCV Antibody RFX to Quant PCR 01/26/23 [facility]01-26-2024 Hospital Discharge instructions Patient Education [...] condition. Follow these instructions at home: Take yyqu-als-mvjwybv and prescription medicines only as told by [...] and water are not available, use hand flight operations coordinator. Avoid contact with people who have cold [...] it is easier to cough up. Take joyt-kzu-lcarjgd and prescription medicines only as told by [...] provider. Document Revised: 06/12/2022 Document Reviewed: 07/03/2021 [employer] Patient Education 2022 [employer]. Follow Up Care 04/10/2023 09:14:32 With:Christopher WELLS Address: [address], [place] [address] [facility] (1) When:04/13/2023 11:17:35 [facility]01-05-2024 Hospital Discharge instructions Patient Education [...] Your health care provider or certified medical aide can help you make a plan for [...] (heat stroke). Where to find more information Australian Diabetes Association: www.diabetes.org Summary Exercising regularly is important for overall health, especially for people who have diabetes mellitus. Exercising has many health benefits. It increases muscle strength and bone density and reduces bodyfat and stress. It also lowers and controls blood glucose. Your health care provider or certified medical aide can help you make an activity plan [...] provider. Document Revised: 11/28/2019 Document Reviewed: 11/28/2019 [employer] Patient Education 2022 [employer]. Follow Up Care 12/18/2022 08:59:12 With:Christopher WELLS DO, FAAFP, FAM, PED Address: [place] [address]- When:Within 4 Month(s) [facility] 12-20-2023 Evaluation + Plan [...] Provider:Christopher WELLS DO, FAAFP Location:[facility] Appointment Type:FM Open Appointment Date:03/23/2023 08:30:00 AM Scheduled Provider:Mara Pastor PA-C Location:[facility] Appointment Type:Pain Management - Follow Up (FT) Appointment Date:02/01/2024 08:00:00 AM Scheduled Provider: Location:[facility] Appointment Type: Medicare Wellness Subsequent Future Scheduled Tests Laboratory* HgbA1c 03/27/22 * HgbA1c 06/25/22 * HCV Antibody RFX to Quant PCR 01/26/23 [facility]12-20-2023 Note [id number] [facility] 03-04-2023 NoteDiagnosis: M16.12, left [...] agrees to continue currently prescribed/recommended therapies.[facility] Comment on above:Result Comment: Electronically Signed By: Nicola Tapia DO.br\Date and Time Signed: 03/04/23 09:06 [id number] Evaluation note* Encounter Date Diagnosis Assessment Notes [...] sooner should she deteriorate in any way [employer] Other 11-30-2023 History of Present illness Narrative* Fariha Guidry [...] I suggested that she discuss with her central office installer the addition of EJXU2clkuivpnz or GLP agonists. Reviewed with the patient [...] complications. 5. Diabetes, managed by endocrinology in [place]. A1c remains above target, advised patient to discuss with the central office installer more aggressive therapy. 6. Hypertension completely under control. 7. High-risk medication with Xarelto, so far well-tolerated. Takes baby aspirin twice weekly 8. Stage III chronic kidney disease to be monitored closely, she follow with nephrology 9. intermittent claudications and PAD followed by vascular surgery in [place]. Patient is scheduled next week to have revascularization for intermittent claudication 10. Sleep apnea not consistently using CPAP machine. Encouraged the patient to utilize it daily. Fariha Guidry MD, [facility] Review of Systems All other systems [...] tablet, Rfl: 3 Assessment/Plan 1. Atherosclerosis of viejas coronary artery of viejas heart without angina pectoris Follow Up In Cardiology atorvastatin (Lipitor) 40 mg tablet Alanine Aminotransferase Aspartate Aminotransferase Lipid Panel 2. Status post coronary angioplasty Follow Up In Cardiology 3. Essential hypertension Follow Up In Cardiology 4. Hyperlipidemia, unspecified hyperlipidemia type atorvastatin (Lipitor) 40 mg tablet Alanine Aminotransferase Aspartate Aminotransferase Lipid Panel 5. PVD (peripheral vascular disease) ([facility]) 6. Stage 3 chronic kidney disease, unspecified whether stage 3a or 3b CKD ([facility]) 7. Sleep apnea, unspecified type documented in this [facility] Work Phone: [phone]) 847-916111-30-2023 Instructions* Patient Instructions* Saloni Benavides LPN - [...] 6 [facility] Phone: 1(256) 375-902811-13-2023 Hospital Discharge instructions Patient Education 01/26/2023 09:01:27 [...] Carrots. Green beans. Tomatoes. Peppers. Onions. Cucumbers. [place]omath sprouts. Grains Whole grains, such as whole-wheat [...] meet with a certified diabetes care and higher education administrator? Do I need to meet with a dietitian? What number can I call if I have questions? When are the best times to check my blood glucose? Where to find more information: Australian Diabetes Association: diabetes.org Academy of Nutrition and Dietetics: eatright.org National [place] of Diabetes and Digestive and Kidney Diseases: [...] provider. Document Revised: 10/03/2020 Document Reviewed: 10/03/2020 [employer] Patient Education 2022 [employer]. 01/26/2023 09:01:11 Fall Prevention in the Home, Adult, Imos-bn-Rjvr Fall Prevention in the Home, Adult Falls [...] Keep items that you use often in pcri-nu-hahep places. Lower the shelves around your home [...] of the way. Do not use floor chinese or wax that makes floors slippery. What [...] prevent falls. Where to find more information [place] for Disease Control and Prevention, [place]: www.cdc.gov National [place] on Aging: www.savannah.nih.gov Contact a doctor if: [...] provider. Document Revised: 12/02/2021 Document Reviewed: 10/03/2020 [employer] Patient Education 2022 [employer]. 01/26/2023 09:01:04 Hepatitis C, Yqat-ir-Acmq Hepatitis C Hepatitis C is a liver [...] organ donations that were done in the [place] before 1991. What increases the risk? [...] Follow these instructions at home: Medicines Take mjlq-qdi-lwkweql and prescription medicines only as told by your doctor. If you were given an antiviral medicine, take it as told by your doctor. Do not stop using the antiviral even if you start to feel better. Do not take any new medicines unless your doctor says that this is okay. This includes fuja-oxf-bezvjmc medicines and supplements. Activity Rest as needed. [...] not have soap and water, use hand flight operations coordinator. Cover any cuts or open sores on [...] provider. Document Revised: 01/17/2021 Document Reviewed: 01/17/2021 [employer] Patient Education 2022 [employer]. 01/26/2023 09:00:41 Exercising to Lose Weight Exercising [...] health care provider or diet and nutrition associate (dietitian). This may include: ?Eating fewer calories. [...] provider. Document Revised: 04/28/2021 Document Reviewed: 04/28/2021 [employer] Patient Education 2022 [employer]. 01/26/2023 09:00:38 Cooking With Less Salt Cooking [...] salt. Use sodium-free baking soda when baking. [place], braise, or roast foods to add flavor with less salt. Avoid adding salt to pasta, rice, or hot cereals. Drain and rinse canned vegetables, beans, and meat before use. Avoid adding salt when cooking sweets and desserts. Cook with low-sodium ingredients. What foods are high in sodium? Vegetables Regular canned vegetables (not low-sodium or reduced-sodium). Sauerkraut, pickled vegetables, and relishes. Olives. Telugu fries. Onion rings. Regular canned tomato sauce [...] Soy milk. Yogurt. Low-sodium cheeses, such as [place]orese, [place] Teodoro, mozzarella, and ricotta. Sherbet or ice [...] foods you can pair it with. Herbs Spring leaves Soups, meat and vegetable dishes, and spaghetti sauce. Basil Zimbabwean dishes, soups, pasta, and fish dishes. Cilantro Meat, poultry, and vegetable dishes. Zapata powder Marinades and Cambodian dishes. Chives Salad dressings and potato dishes. Cumin Cambodian dishes, couscous, and meat dishes. Dill Fish dishes, sauces, and salads. Fennel Meat and vegetable dishes, breads, and cookies. Garlic (do not use garlic salt) Zimbabwean dishes, meat dishes, salad dressings, and sauces. Marjoram Soups, potato dishes, and meat dishes. Oregano Pizza and spaghetti sauce. Parsley Salads, soups, pasta, and meat dishes. Vanita Zimbabwean dishes, salad dressings, soups, and red meats. [...] provider. Document Revised: 02/22/2020 Document Reviewed: 02/22/2020 [employer] Patient Education 2022 [employer] 01/26/2023 09:00:36 BMI for Adults BMI [...] numbers. This can be done either in [place] ([place] or metric measurements. Note that charts and online BMI calculators are available to help you find your BMI quickly and easily without having to do these calculations yourself. To calculate your BMI in [place] ([place] measurements: 1.Measure your weight in pounds [...] Centers for Disease Control and Prevention: www.cdc.gov Australian Heart Association: www.heart.org National Heart, Lung, and Blood [place]: www.nhlbi.nih.gov Summary Body mass index (BMI) is a number that is calculated from a person's weight and height. BMI may help estimate how much of a person's weight is composed of fat. BMI can help identify thosewho may be at higher risk for certain medical problems. BMI can be measured using [place] measurements or metric measurements. BMI charts are used to identify whether you are underweight, normal weight, overweight, or obese. This information is not intended to replace advice given to you by your health care provider. Make sure you discuss any questions you have with your health care provider. Document Revised: 11/23/2019 Document Reviewed: 09/30/2019 [employer] Patient Education 2022 [employer]. [facility] 10-24-2023 Evaluation + Plan [...] Appointments Appointment Date:01/26/2023 08:00:00 AM Scheduled Provider: Location:[facility] Appointment Type: Medicare Wellness Subsequent Appointment Date:03/12/2023 08:00:00 AM Scheduled Provider:Linda Solorio CNP Location[facility] Type:[facility] Follow Up Appointment Date:03/20/2023 09:00:00 AM Scheduled Provider:Christopher WELLS DO, FAAFP Location:[facility] Appointment Type:[facility] Scheduled Tests Laboratory* HgbA1c 03/27/22 * HgbA1c 06/25/22 [facility]10-23-2023 Evaluation note* Encounter Date Diagnosis [...] understands and is agreement with that plan. [employer] Other 10-11-2023 NoteMicrobiology PROCEDURE: Wound Culture [R1] SOURCE: Abscess BODY SITE: Leg L COLLECTED DATE/TIME: 12/22/2022 08:00 EDT RECEIVED DATE/TIME: 12/22/2022 12:42 EDT START DATE/TIME: 12/22/2022 12:42 EDT FREE TEXT SOURCE: Suzan CHARLTON, Denton Castro DPM, Denton Gomez FINAL REPORTS Final Report [...] Locations R1: This test was performed at: [facility], [address] [place] [address], [id number]- , , [facility] SystemComment on above:Performed By: #### [id number] ####[facility] [address] [place], [place] [id number] Evaluation note* Encounter Date Diagnosis Assessment Notes [...] to see her back in 2 months. [employer] Other 08-21-2023 Evaluation note* Encounter Date Diagnosis [...] call us with any issues or concerns. [employer] Other 06-28-2023 Hospital Discharge instructions Patient Education [...] oral rehydration solution (ORS). This is an imci-ulp-svkykkr medicine that helps return your body to [...] drinks, sports drinks, and soda. Eat bland, dezy-gr-ztyekv foods in small amounts as you are able. These foods include bananas, applesauce, rice, lean meats, toast, and crackers. Avoid alcohol. Avoid spicy or fatty foods. Medicines Take zlvr-hng-ueswfsf and prescription medicines only as told by your health care provider. If you were prescribed an antibiotic medicine, take it as told by your health care provider. Do notstop using the antibiotic even if you start to feel better. General instructions Wash your hands often using soap and water. If soap and water are not available, use a hand flight operations coordinator. Others in the household should wash their [...] soap and water are not available, usehand flight operations coordinator. Contact a health care provider if your diarrhea gets worse or you have new symptoms. Get help right away if you have signs of dehydration. This information is not intended to replace advice given to you by your health care provider. Make sure you discuss any questions you have with your health care provider. Document Revised: 09/11/2021 Document Reviewed: 09/11/2021 [employer] Patient Education 2022 [employer]. 09/10/2022 07:52:51 High-Fiber Eating Plan High-Fiber Eating [...] Bulgur wheat. Millet. Quinoa. Bran muffins. Popcorn. [place] wafer crackers. Meats and other proteins [place] beans, kidney beans, and chase beans. Soybeans. [...] Cream cheese. Sour cream. Fats and oils Strum. Beverages Soft drinks. Other foods Cakes and [...] provider. Document Revised: 07/05/2020 Document Reviewed: 07/05/2020 [employer] Patient Education 2022 [employer]. Follow Up Care 06/11/2022 09:32:08 With:Linda Solorio CNP Address: When:6 months [facility] 03-29-2023 Hospital Discharge instructions [...] serving. Talk with a diet and nutrition associate (dietitian) if you have questions about specific [...] Bulgur wheat. Millet. Quinoa. Bran muffins. Popcorn. Valencia wafer crackers. Meats and other proteins [place], kidney, and chase beans. Soybeans. Split peas. [...] Cream cheese. Sour cream. Fats and oils Strum. Beverages Soft drinks. Other foods Cakes and [...] 03/02/2006 Document Revised: 01/04/2018 Document Reviewed: 01/04/2018 [employer] Patient Education 2020 [employer]. 06/11/2022 09:15:20 Hemorrhoids Hemorrhoids Hemorrhoids are swollen [...] 3 times a day. General instructions Take imat-bjy-npszvgt and prescription medicines only as told by [...] 02/27/2001 Document Revised: 07/29/2019 Document Reviewed: 07/22/2018 [employer] Patient Education 2020 [employer]. 06/11/2022 09:15:19 Colon Polyps Colon Polyps Polyps [...] 11/26/2004 Document Revised: 06/17/2018 Document Reviewed: 06/17/2018 [employer] Patient Education 2020 [employer]. Follow Up Care 06/09/2022 16:22:13 With:Linda Solorio CNP Address: When:3 months [facility] 02-20-2023 Evaluation note* Encounter [...] She will continue her current medical regimen. [employer] Other 01-24-2023 Evaluation note* Encounter Date Diagnosis Assessment Notes Treatment Notes Treatment Clinical Notes Mar, Post-op pain (ICD-10 - G89.18) [employer] Other 01-16-2023 Evaluation + Plan note Diagnostic Tests Pending * PTH Intact 03/31/22 * Immunofixation Serum 03/31/22 * Immunofixation, Urine 03/31/22 * C3 Complement 03/31/22 * C4 Complement 03/31/22 * Free K+L Lt Chains,Qn,S 03/31/22 Future Scheduled Tests Laboratory* HgbA1c 03/27/22 * HgbA1c 06/25/22 [facility]01-16-2023 Evaluation note* Encounter Date Diagnosis [...] of both lower extremities (ICD-10 - I73.9) [employer] Other 01-12-2023 Evaluation + Plan note Future Scheduled Tests Laboratory* HgbA1c 03/27/22 * HgbA1c 06/25/22 [facility]11-14-2022 Evaluation note* Encounter Date Diagnosis [...] in 2 months time with the ABIs. 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 Appointment Type: Open Future Scheduled Tests Laboratory* HgbA1c 12/25/21 * HgbA1c 03/27/22 * HgbA1c 06/25/22 Radiology* US PVR Lower EXT Complete Bilat 09/24/21 [facility] Future Appointments Appointment Date:10/15/2021 09:00:00 AM Scheduled Provider: Location:.DIETARY Appointment Type:DM Diabetes Group (FT) Appointment Date:10/28/2021 09:45:00 AM Scheduled Provider:Charis Daniel MD Location[facility] Appointment Type:Vascular New Patient (FT) Appointment Date:12/16/2021 09:40:00 AM Scheduled Provider:Christopher WELLS DO, FAAFP Location:[facility] Appointment Type:FM Open Future Scheduled Tests Laboratory* HgbA1c 12/25/21 * HgbA1c 03/27/22 * HgbA1c 06/25/22 [facility] Future Appointments Appointment Date:12/16/2021 09:40:00 AM Scheduled Provider:Christopher WELLS DO, FAAFP Location:[facility] Appointment Type:FM Open Appointment Date:01/02/2022 01:00:00 PM Scheduled Provider: [facility] Type:DM Diabetes Group (FT) Future Scheduled Tests Laboratory* HgbA1c 12/25/21 * HgbA1c 03/27/22 * HgbA1c 06/25/22 Radiology* US LE Venous Duplex Insufficiency Bilat 10/28/21 * CTA Abd Aorto-bilat/ iliofemoral runoff 10/28/21 [facility] Future Appointments Appointment Date:12/16/2021 09:40:00 AM Scheduled Provider:Christopher WELLS DO, FAAFP Location:[facility] Appointment Type:FM Open Appointment Date:01/02/2022 01:00:00 PM Scheduled Provider: [facility] Type:DM Diabetes Group (FT) Appointment Date:02/24/2022 09:00:00 AM Scheduled Provider:Charis Daniel MD Location[facility] Appointment Type:Vascular Follow Up (FT) Future Scheduled Tests Laboratory* HgbA1c 12/25/21 * HgbA1c 03/27/22 * HgbA1c 06/25/22 [facility] Future Appointments Appointment Date:02/24/2022 09:00:00 AM Scheduled Provider:Charis Daniel MD Location:[facility] Appointment Type:Vascular Follow Up (FT) Future Scheduled Tests Laboratory* HgbA1c 12/25/21 * HgbA1c 03/27/22 * HgbA1c 06/25/22 [facility] Future Appointments Appointment Date:02/24/2022 09:00:00 AM Scheduled Provider:Charis Daniel MD Location[facility] Appointment Type:Vascular Follow Up (FT) Future Scheduled Tests Laboratory* HgbA1c 03/27/22 * HgbA1c 06/25/22 [facility] Future Appointments Appointment Date:05/21/2022 01:05:00 PM Scheduled Provider: Location:[facility] Appointment Type:Surgery FT Diagnostic Tests Pending * O & P Exam, Routine 05/08/22 * Giardia lamblia, Direct Detection EIA 05/08/22 Future Scheduled Tests Laboratory* HgbA1c 03/27/22 * HgbA1c 06/25/22 [facility] Future Appointments Appointment Date:09/10/2022 08:00:00 AM Scheduled Provider:Linda Solorio CNP [facility] Type[facility] Follow Up Future Scheduled Tests Laboratory* HgbA1c 03/27/22 * HgbA1c 06/25/22 [facility] Evaluation + Plan note Future Appointments Appointment Date:03/12/2023 08:00:00 AM Scheduled Provider:Linda Solorio CNP [place] Type[facility] Follow Up Future Scheduled Tests Laboratory* HgbA1c 03/27/22 * HgbA1c 06/25/22 [facility] Evaluation + Plan note Future Appointments Appointment Date:12/18/2022 08:20:00 AM Scheduled Provider:Christopher WELLS DO, FAAFP Location:[facility] Appointment Type: Open Appointment Date:01/26/2023 08:00:00 AM Scheduled Provider: Location:[facility] Appointment Type: Medicare Wellness Subsequent Appointment Date:03/12/2023 08:00:00 AM Scheduled Provider:Linda Solorio CNP [place] App[facility]ment Type:[facility] Follow Up Future Scheduled Tests Laboratory* HgbA1c 03/27/22 * HgbA1c 06/25/22 [facility] Future Appointments Appointment Date:01/06/2023 08:30:00 AM Scheduled Provider:Gary Cerda MD Location:[facility] Appointment Type:Pain Management - New (FT) Appointment Date:01/26/2023 08:00:00 AM Scheduled Provider: Location:[facility] Appointment Type:FM Medicare Wellness Subsequent Appointment Date:03/12/2023 08:00:00 AM Scheduled Provider:Linda Solorio CNP [place] Appointment Type:BAD Follow Up Appointment Date:03/20/2023 09:00:00 AM Scheduled Provider:Christopher WELLS DO, FAAFP Location:[facility] Appointment Type:FM Open Future Scheduled Tests Laboratory* HgbA1c 03/27/22 * HgbA1c 06/25/22 [facility] Future Appointments Appointment Date:01/19/2023 09:30:00 AM Scheduled Provider: [facility] Appoint[facility] Type:WC Assessment (FT) Appointment Date:01/26/2023 08:00:00 AM Scheduled Provider: Location:[facility] Appointment Type: Medicare Wellness Subsequent Appointment Date:01/27/2023 02:00:00 PM Scheduled Provider:Denton Castro DPM [facility] Appointment Type:WC Follow Up Visit (FT) Appointment Date:02/02/2023 09:45:00 AM Scheduled Provider: Location:[facility] Appointment Type:Surgery FT Appointment Date:02/17/2023 08:45:00 AM Scheduled Provider:Gary Cerda MD Location:[facility] Appointment Type:Pain Management - Follow Up (FT) Appointment Date:03/12/2023 08:00:00 AM Scheduled Provider:Linda Solorio CNP [place] Appointment Type:BAD Follow Up Appointment Date:03/20/2023 09:00:00 AM Scheduled Provider:Christopher WELLS DO, FAAFP Location:[facility] Appointment Type: Open Future Scheduled Tests Laboratory* HgbA1c 03/27/22 * HgbA1c 06/25/22 [facility] Future Appointments Appointment Date:01/26/2023 08:00:00 AM Scheduled Provider: Location:[facility] Appointment Type:FM Medicare Wellness Subsequent Appointment Date:01/27/2023 02:00:00 PM Scheduled Provider:Denton Castro DPM [facility] Appointment Type:WC Follow Up Visit (FT) Appointment Date:02/02/2023 09:45:00 AM Scheduled Provider: Location:[facility] Appointment Type:Surgery FT Appointment Date:02/17/2023 08:45:00 AM Scheduled Provider:Gary Cerda MD Location:[facility] Appointment Type:Pain Management - Follow Up (FT) Appointment Date:03/12/2023 08:00:00 AM Scheduled Provider:Linda Solorio CNP [place] Appointment Type:BAD Follow Up Appointment Date:03/20/2023 09:00:00 AM Scheduled Provider:Christopher WELLS DO, FAAFP Location:[facility] Appointment Type:FM Open Future Scheduled Tests Laboratory* HgbA1c 03/27/22 * HgbA1c 06/25/22 [facility] Future Appointments Appointment Date:01/27/2023 02:00:00 PM Scheduled Provider:Denton Castro DPM [facility] Appointment Type:WC Follow Up Visit (FT) Appointment Date:02/02/2023 09:45:00 AM Scheduled Provider: Location:[facility] Appointment Type:Surgery FT Appointment Date:02/17/2023 08:45:00 AM Scheduled Provider:Gary Cerda MD Location:[facility] Appointment Type:Pain Management - Follow Up (FT) Appointment Date:03/12/2023 08:00:00 AM Scheduled Provider:Linda Solorio CNP [place] Appointment Type:BAD Follow Up Appointment Date:03/20/2023 09:00:00 AM Scheduled Provider:Christopher WELLS DO, FAAFP Location:[facility] Appointment Type:FM Open Appointment Date:02/01/2024 08:00:00 AM Scheduled Provider: Location:[facility] Appointment Type:FM Medicare Wellness Subsequent Future Scheduled Tests Laboratory* HgbA1c 03/27/22 * HgbA1c 06/25/22 * HCV Antibody RFX to Quant PCR 01/26/23 [facility] Evaluation + Plan note Future Appointments Appointment Date:02/02/2023 09:45:00 AM Scheduled Provider: Location:[facility] Appointment Type:Surgery FT Appointment Date:02/10/2023 02:30:00 PM Scheduled Provider:Denton Castro DPM [facility] Appointment Type:WC Follow Up Visit (FT) Appointment Date:02/17/2023 08:45:00 AM Scheduled Provider:Gary Cerda MD Location:[facility] Appointment Type:Pain Management - Follow Up (FT) Appointment Date:03/12/2023 08:00:00 AM Scheduled Provider:Linda Solorio CNP Location[place] Appointment Type:BAD Follow Up Appointment Date:03/20/2023 09:00:00 AM Scheduled Provider:Christopher WELLS DO, FAAFP Location:[facility] Appointment Type:FM Open Appointment Date:02/01/2024 08:00:00 AM Scheduled Provider: Location:[facility] Appointment Type:FM Medicare Wellness Subsequent Future Scheduled Tests Laboratory* HgbA1c 03/27/22 * HgbA1c 06/25/22 * HCV Antibody RFX to Quant PCR 01/26/23 [facility] Future Appointments Appointment Date:02/16/2023 01:45:00 PM Scheduled Provider: [facility] Appointment Type:WC Assessment (FT) Appointment Date:02/16/2023 02:15:00 PM Scheduled Provider: Location:[facility] Appointment Type:Surgery FT Appointment Date:02/24/2023 02:00:00 PM Scheduled Provider:Denton Castro DPM [facility] Appointment Type:WC Follow Up Visit (FT) Appointment Date:03/02/2023 08:15:00 AM Scheduled Provider:Mara Pastor PA-C Location:[facility] Appointment Type:Pain Management - Follow Up (FT) Appointment Date:03/02/2023 09:40:00 AM Scheduled Provider:Linad Solorio CNP [place] Appointment Type:BAD Follow Up Appointment Date:03/20/2023 09:00:00 AM Scheduled Provider:Christopher WELLS DO, FAAFP Location:[facility] Appointment Type:FM Open Appointment Date:02/01/2024 08:00:00 AM Scheduled Provider: Location:[facility] Appointment Type:FM Medicare Wellness Subsequent Future Scheduled Tests Laboratory* HgbA1c 03/27/22 * HgbA1c 06/25/22 * HCV Antibody RFX to Quant PCR 01/26/23 [facility] Future Appointments Appointment Date:02/24/2023 02:00:00 PM Scheduled Provider:Denton Castro DPM [facility] Appoint[facility] Type:WC Follow Up Visit (FT) Appointment Date:03/02/2023 09:40:00 AM Scheduled Provider:Linda Solorio CNP [place] Appointment Type:BADH Follow Up Appointment Date:03/04/2023 08:45:00 AM Scheduled Provider: Location:[facility] Appointment Type:Surgery FT Appointment Date:03/20/2023 09:00:00 AM Scheduled Provider:Christopher WELLS DO, FAAFP Location:[facility] Appointment Type:FM Open Appointment Date:03/23/2023 08:30:00 AM Scheduled Provider:aMra Pastor PA-C [facility] [place] Appointment Type:Pain Management - Follow Up (FT) Appointment Date:02/01/2024 08:00:00 AM Scheduled Provider: Location:[facility] Appointment Type: Medicare Wellness Subsequent Future Scheduled Tests Laboratory* HgbA1c 03/27/22 * HgbA1c 06/25/22 * HCV Antibody RFX to Quant PCR 01/26/23 [facility] Future Appointments Appointment Date:03/03/2023 02:30:00 PM Scheduled Provider:Denton Castro DPM [facility] Appointment Type:WC Follow Up Visit (FT) Appointment Date:03/04/2023 08:45:00 AM Scheduled Provider: Location:[facility] Appointment Type:Surgery FT Appointment Date:03/20/2023 09:00:00 AM Scheduled Provider:Crhistopher WELLS DO, FAAFP Location:[facility] Appointment Type:FM Open Appointment Date:03/23/2023 08:30:00 AM Scheduled Provider:Mara Pastor PA-C [facility] [place] Appointment Type:Pain Management - Follow Up (FT) Appointment Date:02/01/2024 08:00:00 AM Scheduled Provider: Location:[facility] Appointment Type:FM Medicare Wellness Subsequent Future Scheduled Tests Laboratory* HgbA1c 03/27/22 * HgbA1c 06/25/22 * HCV Antibody RFX to Quant PCR 01/26/23 [facility] Evaluation + Plan note Future Appointments Appointment Date:03/04/2023 08:45:00 AM Scheduled Provider: Location:[facility] Appointment Type:Surgery FT Appointment Date:03/20/2023 09:00:00 AM Scheduled Provider:Christopher WELLS DO, FAAFP Location:[facility] Appointment Type: Open Appointment Date:03/23/2023 08:30:00 AM Scheduled Provider:Mara Pastor PA-C Location:[facility] Appointment Type:Pain Management - Follow Up (FT) Appointment Date:02/01/2024 08:00:00 AM Scheduled Provider: Location:[facility] Appointment Type: Medicare Wellness Subsequent Future Scheduled Tests Laboratory* HgbA1c 03/27/22 * HgbA1c 06/25/22 * HCV Antibody RFX to Quant PCR 01/26/23 [facility] Future Appointments Appointment Date:03/23/2023 08:30:00 AM Scheduled Provider:Mara Pastor PA-C Location:[facility] Appointment Type:Pain Management - Follow Up (FT) Appointment Date:07/28/2023 08:00:00 AM Scheduled Provider:Christopher WELLS DO, FAAFP Location:[facility] Appointment Type:FM Open Appointment Date:02/01/2024 08:00:00 AM Scheduled Provider: Location:[facility] Appointment Type: Medicare Wellness Subsequent Future Scheduled Tests Laboratory* HgbA1c 03/27/22 * HgbA1c 06/25/22 * HCV Antibody RFX to Quant PCR 01/26/23 [facility] Evaluation + Plan note Future Appointments Appointment Date:10/29/2023 07:40:00 AM Scheduled Provider:Christopher WELLS DO, FAAFP Location:[facility] Appointment Type:FM Open Appointment Date:02/01/2024 08:00:00 AM Scheduled Provider: Location:[facility] Appointment Type:FM Medicare Wellness Subsequent Future Scheduled Tests Laboratory* HCV Antibody RFX to Quant PCR 01/26/23 [facility] Evaluation noteNo assessment information available [facility] Work Phone: Evaluation noteNo InformationNort Appbistro Other Evaluation note* Diagnosis Atherosclerosis of viejas coronary artery of viejas heart without angina pectoris Status post coronary angioplasty Postsurgical percutaneous transluminal coronary angioplasty status Essential hypertension Unspecified essential hypertension Hyperlipidemia, unspecified hyperlipidemia type PVD (peripheral vascular disease) ([facility]/HCC) Unspecified peripheral vascular disease Stage 3 chronic kidney disease, unspecified whether stage 3a or 3b CKD (CMS/HCC) Sleep apnea, unspecified type documented in this encounter [facility] Work Phone: Evaluation note* Diagnosis Atherosclerosis of viejas coronary artery of viejas heart without angina pectoris Status post coronary angioplasty Postsurgical percutaneous transluminal coronary angioplasty status Essential hypertension Unspecified essential hypertension Hyperlipidemia, unspecified hyperlipidemia type PVD (peripheral vascular disease) (CMS-HCC) Unspecified peripheral vascular disease Stage 3 chronic kidney disease, unspecified whether stage 3a or 3b CKD ([facility]) Sleep apnea, unspecified type BMI 35.0-35.9,adult Never smoked tobacco Claudication, intermittent ([facility]) Unspecified peripheral vascular disease documented in this encounter [facility] Work Phone: Hiskltm general Narrative - Reported* Type Description Date [...] stent 3 STENTS Hospitalization History see above [employer] Other Hisckfa general Narrative - Reported* Type Description Date [...] LEG ANGIOPLASTY 03/2022 Hospitalization History see above [employer] Other Hospital course Narrative No data available for this section [facility] Hospital Discharge instructions No data available for this section [facility] Progress note No data available for this section [facility] (narrative)* Consultation (Routine) - Authorized Specialty Diagnoses / Procedures Referred By Fariha bautista Referred To Contact Cardiology Diagnoses Atherosclerosis of viejas coronary artery of viejas heart without angina pectoris Status post coronary angioplasty Essential hypertension Procedures Follow Up In Cardiology Fariha Guidry MD [address] [place] [address], [address] [address] Fariha Guidry MD [address] [place] [address], [address] [address] Referral ID Status Reason Start Date Expiration Date V isits Requested Visits Authorized [id number] Authorized 02/12/2023 02/12/2024 1 1 [facility] Work Phone: Reason for referral (narrative)* Consultation (Routine) - Authorized Specialty Diagnoses / Procedures Referred By Fariha bautista Referred To Contact Cardiology Diagnoses PVD (peripheral vascular disease) ([facility]) Fariha Guidry MD [address] [place] [address], [address] [address] [place] [id number] [place] [id number] Referral ID Status Reason Start Date Expiration Date Visits Requested Visits Authorized [id number] Authorized Specialty Services Required 08/27/2023 08/26/2024 1 1 * Consultation (Routine) - Authorized Specialty Diagnoses / Procedures Referred By Fariha t Referred To Contact Cardiology Diagnoses Atherosclerosis of viejas coronary artery of viejas heart without angina pectoris Procedures Follow Up In Cardiology Fariha Guidry MD [address] [facility] [address] [place] [address] Fariha Guidry MD [address] [facility] [address] [place] [address] Referral ID Status Reason Start Date Expiration Date V isits Requested Visits Authorized [id number] Authorized 08/27/2023 08/26/2024 1 1 [facility] Work Phone: Chief Complaint * EVON CORCORAN [...] the LAD and diagonal and again inMay 2019 to the LAD for total occlusion with [...] * 5. Diabetes, managed by endocrinology in [place]. A1c remains above target * 6. Hypertension completely under control. * 7. High-risk medication with Xarelto, so far well-tolerated. Takes baby aspirin twice weekly * 8. Stage III chronic kidney disease to be monitored closely * 9. Recent diagnosis of intermittent claudications and PAD followed by vascular surgery Dr. 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 Relationship Specialty Start Date End Date Christopher Wells DO [address] [place] [facility]- [address] [id number] PCP - General 08/02/18 Team Status: Inactive Member Role Status Dates Christopher Wells DO Primary Care Provider Active Start: June 09, 2023 End: June 09, 2023 Miguel Membreno MD Attending Provider Active S tart: June 09, 2023 End: June 09, 2023 Draw Operator Relationship Specialty Start Date End Date [facility] Wells [facility] [address] [place] [address] PCP - General 08/02/18 INFORMATION SOURCE (unrecogn ized section and content) DATE CREATED AUTHOR 01/16/2022 [facility] DATE CREATED AUTHOR AUTHOR'S ORGANIZ ATION 01/16/2022 [employer] DATE CREATED AUTHOR AUTHOR'S ORGANIZ ATION 09/19/2022 [facility] DATE CREATED AUTHOR AUTHOR'S ORGANIZ ATION 02/28/2023 [facility] DATE CREATED AUTHOR AUTHOR'S ORGANIZ ATION 07/23/2023 [facility] DATE CREATED AUTHOR AUTHOR'S ORGANIZ ATION 07/29/2023 [facility] DATE CREATED AUTHOR AUTHOR'S ORGANIZ ATION 08/28/2023 [facility] REASON FOR VISIT (unrecogniz ed section and content) Reason Comments Follow-up 6mo Reason Comments Follow-up 6mo Specialty Diagnoses / Procedures Referred By Contac t Referred To Contact Cardiology Diagnoses Atherosclerosis of viejas coronary artery of viejas heart without angina pectoris Status post coronary angioplasty Essential hypertension Procedures Follow Up In Cardiology Fariha Guidry MD [address] [facility] [address], [address] [address] Fariha Guidry MD [address] [facility] [address], [address] [address] Referral ID Status Reason Start Date Expiration Date V isits Requested Visits Authorized [id number] Authorized 02/12/2023 02/12/2024 1 1 Goals (unrecognized section and content) Goals may [...] BE BASED ON THE PRIMARY CLINICAL RECORDS. [facility] [employer] [facility]. provides no warranty or guarantee of the accuracy or completeness of information in this document.
== END 2023-09-07 08:57 | disposition home or self-care (01) ==
LOC: VC 08:56
PROVIDERS: PCP Radiology Diagnostic Radiology; Visit Provider Radiology Diagnostic Radiology
DX: I83.813 Varicose veins of bilateral lower extremities with pain (principal)
CPT/HCPCS: 36471

== ENCOUNTER 2023-09-28 07:53 | Outpatient (OUT) | payer MEDICARE, BC, SELFPAY ==
[2023-09-28 07:40] VITALS: BP 118/62; PULSE 67; O2SAT 95; BMI 35.8
--- NOTE | 2023-09-28 07:40 | VEINCLINIC_ITS ---
Vital Signs 09/28/23 07:40 Height 5 ft 5 in Weight 97.522 kg BMI 35.8 BP 118/62 BP Location Left Brachial BP Position Sitting BP Cuff Size Adult BP Source Manual Cuff Respiration 16 Pulse 67 Pulse Oximetry (%) 95 Oxygen Delivery Method Room Air Varicose Veins Patient in this day for sclerotherapy Gomez Styles MD personally performed the services described in this documentation, as scribed by Ottoniel Mariscal RN in my presence and it is both accurate and complete. Ottoniel Styles RN, am scribing for, and in the presence of, Dr. Gomez Sher and in the presence of the patient. thigh: bilateral, knee: bilateral, calf: bilateral, ankle: bilateral and watkins: bilateral aching and dull 5 55 years Worsened in recent months: Yes standing bed rest, elevating extremities and compression stockings Reports heaviness and edema History of lower extremity trauma: No Superficial thrombophlebitis: Yes Family history of varicose veins: yes Has patient had previous lower extremity venous surgery: No Patient has previously received the following treatment(s) for lower extremity varicose veins: Reports none Does patient have a history of : yes Does patient intend to have future pregnancies: no Has patient had lower extremity venous scan with relux testing: Yes Support hose used: Yes Problems walking or doing physical activity: Yes How does it affect you: exercise drastically decreased due to pain Do you walk much: Yes Do you stand much: Yes Medication compliance: good Large amounts of Vitamin K: No Review of Systems ROS Narrative Gomez Styles MD personally performed the services described in this documentation, as scribed by Ottoniel Mariscal RN in my presence and it is both accurate and complete. Ottoniel Styles RN, am scribing for, and in the presence of, Dr. Gomez Sher and in the presence of the patient. Status of ROS 10 or more systems reviewed and unremark able except as noted in history and below Cardiovascular Reports: edema, swelling of feet/ankles and leg pain with exertion Musculoskeletal Reports: extremity pain, extremity swelling, joint swelling, muscle cramps (Patient c/o intermittent cramps to left lateral thigh) and muscle weakness Integumentary/Breast Reports: skin tenderness, non-healing lesion and changes in skin color PFSH [facility] Medical History (Updated 09/28/23 @ 10:25 by Ottoniel Mariscal) Renal disease ?N28.9 - Disorder of kidney and ureter, unspecified (ICD-10) Hypertension ?I10 - Essential (primary) hypertension (ICD-10) Heart disease ?I51.9 - Heart disease, unspecified (ICD-10) Diabetes ?E11.9 - Type 2 diabetes mellitus without complications (ICD-10) Varicose veins of bilateral lower extremities with pain ?I83.813 - Varicose veins of bilateral lower extremities with pain (ICD-10) Phlebitis and thrombophlebitis of superficial vessels of left lower extremity ?I80.02 - Phlebitis and thrombophlebitis of superficial vessels of left lower extremity (ICD-10) Phlebitis and thrombophlebitis of superficial vessels of right lower extremity ?I80.01 - Phlebitis and thrombophlebitis of superficial vessels of right lower extremity (ICD-10) Surgical History H/O hysterectomy for benign disease ?Z90.710 - Acquired absence of both cervix and uterus (ICD-10) Hx of cholecystectomy ?Z90.49 - Acquired absence of other specified parts of digestive tract (ICD- 10) H/O heart artery stent ?Z95.5 - Presence of coronary angioplasty implant and graft (ICD-10) Family History (Updated 09/28/23 @ 10:26 by Ottoniel Mariscal) Mother Family history of diabetes mellitus Family history of hypertension Father Family history of CHF (congestive heart failure) Social History (Updated 09/28/23 @ 14:40 by Ottoniel Mariscal) Within the past year, how often did you have a drink containing alcohol: monthly or less Smoking status: Never smoker Non-prescribed substance use: denies use Meds Home Medications and Allergies Home Medications ?Medication ?Instructions ?Recorded ?Confirmed ?Type amlodipine 5 mg tablet 5 mg PO DAILY 09/28/23 09/28/23 History aspirin 81 mg tablet,delayed 81 mg PO DAILY 09/28/23 09/28/23 History release atorvastatin 20 mg tablet 20 mg PO DAILY 09/28/23 09/28/23 History coenzyme Q10 90 mg PO 09/28/23 History insulin lispro-aabc 100 unit/mL 1 sliding scale dose subcut 09/28/23 09/28/23 History subcutaneous pen (Loli Veliz USEASDIRECTD U-100 Insulin) metoprolol succinate 50 mg capsule 50 mg PO DAILY 09/28/23 09/28/23 History sprinkle, ext. release 24 hr nitroglycerin 0.4 mg sublingual 0.4 mg sublingual Q5M 09/28/23 09/28/23 History tablet psyllium husk 0.4 gram capsule 0.4 g PO DAILY 09/28/23 09/28/23 History rivaroxaban 20 mg tablet (Xarelto) 20 mg PO DAILY 09/28/23 09/28/23 History Allergies Allergy/AdvReac Type Severity Reaction Status Date / Time No Known Drug Allergies Allergy Verified 09/28/23 08:55 Exam Narrative Exam Narrative: IGomez MD personally performed the services described in this documentation, as scribed by Ottoniel Mariscal RN in my presence and it is both accurate and complete. IOttoniel RN, am scribing for, and in the presence of, Dr. Gomez Sher and in the presence of the patient. Constitutional Documenting provider has reviewed patient's vital signs: yes Common normals: oriented x3 Nutritional appearance: overweight Lymph Lymphatic: no lymphedema noted Cardio Peripheral pulses: posterior tibial pulses present and dorsalis pedis pulses present Extremity Common normals: normal capillary refill and no pedal edema Right lower extremity: lower leg Right lower leg: inspection and palpation Left lower extremity: lower leg Left lower leg: inspection and palpation Neuro Common normals: oriented x3 Assessment and Plan Assessment and Plan (1) Varicose veins of bilateral lower extremities with pain: (2) Phlebitis and thrombophlebitis of superficial vessels of left lower extremity: (3) Phlebitis and thrombophlebitis of superficial vessels of right lower extremity: Plan sclerotherapy: Risks and benefits of the procedure were discussed at length and informed written consent was obtained.? Time-out procedure was performed and the correct patient and procedure were confirmed.? Staff present during time-out: Ottoniel Mariscal RN and Gomez Sher MD.? Patient prepped and procedure performed in usual sterile fashion. Injections performed by and Ottoniel Mariscal RN Sclerosing Agent:?? 4cc 0.5% Polidocanol Site Injected: left leg Number of Injections:26 Anesthesia: Supercooled air The patient tolerated the procedure well without complication.? Hemostasis was obtained and thigh-high compression stocking was applied by patient.? Instructed patient to wear stocking for at least 96 hours and sleep with it and only remove for showering.? Will wear stocking for 2 weeks.? The patient verbalizes understanding and states they will comply.? Patient was given post-procedure instructions. Patient was discharged in good condition.? Patient will call for additional sclerotherapy appointment. Procedures Procedure Note Date of procedure: 09/28/23 Procedure: Sclerotherapy left leg Surgeon: Gomez Sher
--- NOTE | 2023-09-28 07:55 | VEIN_ITS ---
[address] [address] Patient Name: GEOVANNY CORCORAN MRN: [id number] date: 1950 Sex: F Assigned Patient Location: Current Patient Location: Accession/Order Number: [id number] Exam Date: 09/28/2023 07:55 Report Date: 09/28/2023 09:10 At the request of: AILIN JC Procedure: VC INJ Sclerosing SOLMULT Vein EXAMINATION: VC INJ Sclerosing SOLMULT Vein HISTORY: Pain due to varicose veins of bilateral legs I83.813 COMPARISON: No relevant comparison available. TECHNIQUE: The risks and benefits of the procedure were explained at length to the patient and informed written consent was obtained. Ottoniel Mariscal was present and assisted. The procedure was performed under sterile technique. The patient's leg was wrapped with Coban and postprocedural verbal and written instructions provided. SCLEROSANT: 4 cc, 0.5% polidocanol VEIN(S) INJECTED: 26 veins in the left leg VISUALIZATION: Ultrasound was not used to visualize the sclerosant ANESTHESIA: Supercooled air COMPLICATIONS: None VEIN/VC INJ Sclerosing SOLMULT Vein IMPRESSION: Technically successful sclerotherapy as described Electronically authenticated by: AILIN JC Date: 09/28/2023 09:10
--- NOTE | 2023-09-28 14:48 | W.VEIN ---
Discharge Plan Discharge Disposition: Home, Self-Care Discharge Medications: No Action atorvastatin 20 mg tablet 20 mg PO DAILY Xarelto 20 mg tablet 20 mg PO DAILY Rx Instructions: must administer with evening meal aspirin 81 mg tablet,delayed release (DR/EC) 81 mg PO DAILY nitroglycerin 0.4 mg tablet, sublingual 0.4 mg sublingual Q5M Rx Instructions: do not exceed 3 doses per episode metoprolol succinate 50 mg capsule,sprinkle,ER 24hr 50 mg PO DAILY amlodipine 5 mg tablet 5 mg PO DAILY Loli Veliz U-100 Insulin 100 unit/mL insulin pen 1 sliding scale dose subcut USEASDIRECTD psyllium husk 0.4 gram capsule 0.4 g PO DAILY coenzyme Q10 [ubiquinone] 90 mg PO Plan of Treatment: Patient to call for additional sclerotherapy appointments Print Language: Latvian Discharge Date/Time: 09/28/23 14:50
== END 2023-09-28 14:50 | disposition home or self-care (01) ==
PROVIDERS: PCP Radiology Diagnostic Radiology; Visit Provider Radiology Diagnostic Radiology
DX: I83.813 Varicose veins of bilateral lower extremities with pain (principal)
CPT/HCPCS: 36471